=== PATIENT | female | born 1965 | race Caucasian/White ===

== ENCOUNTER → 2016-11-06 | Outpatient (CLI) | payer OTHER ==
[~2016-11-06] MED LIST: ASP325TEC PO; ASPI-586 PO; ATEN50TA PO; BPR150TCR PO; BSP10T PO; BUSPAR; CODE-54 PO; DAPA10TA PO; ESTR1TAB24 PO; FURO20TA4 PO; GLIP10TA13 PO; HYDR-3454 PO; INDO25CA PO; KCL10CCR PO; LASIX; LEVO125T6 PO; LIRA0.6P SQ; LISI10TA2 PO; LOVA40TA2 PO; LOVASTATIN; LVT.15T PO; MEDR2.5T PO; MELO-195 PO; METF1000 PO; MOBIC; PENI500T PO; POTASSIUM; PROP1TAB77 PO; SAXA5TAB PO; SPIR25TA3 PO; SPIRONOLACTONE; TRM50T PO
--- NOTE | 2016-11-09 21:29 | Diagnostic Imaging Report ---
INDICATION: Screening. The current study was also evaluated with a Computer Aided Detection (CAD) system. Comparison made with prior examination of 09/19/2015, 07/16/2014, and 01/04/2013. FINDINGS: There is a moderate amount of residual fibroglandular tissue bilaterally. There is no dominant mass, spiculated lesion, or suspicious calcification identified. The skin, nipples, and axillae are unremarkable. IMPRESSION: Negative. ACR BI-RADS Category 1: Negative. Result letter will be mailed to the patient. Note: At least 10% of breast cancer is not imaged by mammography. Dictated by: Dictated on workstation # [id number]
== END ==
LOC: RAD 13:27
PROVIDERS: ATTEND Obstetrics & Gynecology
DX: Z12.31 Encounter for screening mammogram for malignant neoplasm of breast (principal)
CPT/HCPCS: 77067

== ENCOUNTER → 2017-02-05 | Outpatient (CLI) | payer OTHER ==
--- NOTE | 2017-02-05 14:50 | Diagnostic Imaging Report ---
FOOT, RIGHT, 3 VIEW COMPARISON: None available. INDICATION: Pain on the ball of foot. TECHNIQUE: Three non-weightbearing views of the right foot. FINDINGS: No evidence of calcaneal or metatarsal stress fracture. No acute or healing fracture. Moderate degenerative changes at the hallux sesamoid metatarsal head articulation. Small dorsal and moderate-sized plantar calcaneal spurs. Early osteoarthritis of the first MTP joint. No structural changes to indicate gout or inflammatory arthritis. IMPRESSION: 1. 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 2. No evidence of metatarsal or calcaneal stress fracture. 3. Small dorsal and moderate-sized plantar calcaneal spurs. Dictated by: Dictated on workstation # [id number]
== END ==
LOC: RAD 13:49
PROVIDERS: ATTEND Nurse Practitioner
DX: M19.071 Primary osteoarthritis, right ankle and foot (principal); M77.31 Calcaneal spur, right foot
CPT/HCPCS: 73630

== ENCOUNTER → 2017-07-14 | Outpatient (CLI) | payer OTHER ==
--- NOTE | 2017-07-14 11:23 | Diagnostic Imaging Report ---
PROCEDURE: MRI lumbar spine. TECHNIQUE: Multiplanar, multisequence MRI of the lumbar spine was performed without contrast. INDICATION: Lower back pain. Bilateral leg numbness. FINDINGS: There is satisfactory alignment of the posterior spinal line. The vertebral body heights are preserved. Disc heights are also preserved. There is no significant bone marrow signal abnormality. Mild disc desiccation at the mid lumbar spine levels is seen. The cauda equina and conus medullaris appear grossly unremarkable. T12/L1: No disc herniation, no spinal canal or foraminal stenosis. L1/2: No disc herniation. There is moderate facet hypertrophy. No central canal or lateral recess stenosis. No foraminal narrowing. L2/3: No disc herniation. There is moderate facet hypertrophy. No central canal or lateral recess stenosis. L3/4: No disc herniation. There is moderate facet arthropathy. No central canal, lateral recess or foraminal stenosis. L4/5: There is some no disc herniation. There is bilateral moderate to severe facet arthropathy. No central canal stenosis. There is bilateral mild to moderate lateral recess stenosis. These are abutting the descending L5 nerve roots. The foramina demonstrate mild narrowing on the left and mild to moderate narrowing of the right side. L5/S1: No disc herniation. There is mild facet hypertrophy bilaterally. No central canal, lateral recess or foramina stenosis. IMPRESSION: Severe facet arthropathy at L4/5 seen bilaterally. This results in mild to moderate lateral recess stenosis bilaterally. There is also mild to moderate foraminal stenosis bilaterally at this level. Dictated by: Dictated on workstation # [id number]
== END ==
LOC: RAD 10:13
PROVIDERS: ATTEND Orthopaedic Surgery
DX: M47.816 Spondylosis without myelopathy or radiculopathy, lumbar region (principal); M48.061 Spinal stenosis, lumbar region without neurogenic claudication
CPT/HCPCS: 72148

== ENCOUNTER → 2017-10-27 | Outpatient (CLI) | payer OTHER ==
--- NOTE | 2017-10-27 16:32 | Diagnostic Imaging Report ---
PROCEDURE: US left lower extremity venous. TECHNIQUE: Multiple real-time grayscale images were obtained over the left lower extremity in various projections. Additional duplex Doppler and color Doppler images were also obtained. INDICATION: Pain, swelling. FINDINGS: The femoropopliteal deep venous system is widely patent. No deep or superficial thrombi. No fluid collection. IMPRESSION: Normal negative unilateral left lower extremity venous Doppler and ultrasound exam. Dictated by: Dictated on workstation # [id number]
== END ==
LOC: RAD 16:01
PROVIDERS: ATTEND Nurse Practitioner Family
DX: R22.42 Localized swelling, mass and lump, left lower limb (principal); M79.605 Pain in left leg

== ENCOUNTER → 2017-11-01 | Outpatient (CLI) | payer OTHER ==
--- NOTE | 2017-11-01 13:05 | Diagnostic Imaging Report ---
INDICATION: Claudication, history of diabetes. FINDINGS: Noninvasive study performed with ankle-brachial indices on both sides demonstrating ankle-brachial index of 1.23 on the right side and 1.19 on the left side. Ankle brachial indices in dorsalis pedis was 0.99 on the right side and 1.12 on the left side. IMPRESSION: Normal ankle brachial indices bilaterally. Dictated by: Dictated on workstation # [id number]
== END ==
LOC: RAD 08:38
PROVIDERS: ATTEND Family Medicine
DX: M79.89 Other specified soft tissue disorders (principal)
CPT/HCPCS: 93922

== ENCOUNTER 2017-11-22 10:26 | Emergency (ER) | payer OTHER ==
[~2017-11-22] VITALS: Ht 162.6 cm; Wt 103.0 kg
--- NOTE | 2017-11-22 10:50 | ED Lower Extremity ---
General Chief Complaint: Lower Extremity Stated Complaint: LEFT LEG SWOLLEN Source: patient Exam Limitations: no limitations History of Present Illness Date Seen by Provider: Nov 22, 2017 Time Seen by Provider: 10:46 Initial Comments To ER with reports of left leg swelling intermittently for 1 month. She's been evaluated by primary care and found to have normal venous ultrasound of the lower extremity, also has pain in this extremity. She then had an MRI of lumbar spine was diagnosed with sciatica. However over the past 3-4 days the swelling has increased in the left calf and left thigh and is now painful. Onset: other Severity: moderate Pain/Injury Location: left leg Modifying Factors: Worse With Movement Allergies and Home Medications Allergies Coded Allergies: cephalexin (Unverified Allergy, Mild, FACE GETS RED, FEELS REALLY HOT, ) Home Medications Aspirin 81 Mg Tablet.dr, 81 MG PO DAILY, (Reported) Bupropion Hcl 150 Mg Tablet, 150 MG PO BID, (Reported) Buspirone Hcl 10 Mg Tablet, 30 MG PO BID, (Reported) Dapagliflozin Propanediol 10 Mg Tablet, 10 MG PO DAILY, (Reported) Estradiol 1 Mg Tablet, 1 MG PO DAILY, (Reported) Hydrocodone/Acetaminophen 1 Each Tablet, 1-2 EACH PO Q4H PRN for ABDOMINAL PAIN Prescribed by: EVELYN BORRERO on 09/16/15 1400 Hydrocodone/Acetaminophen 1 Each Tablet, 1 EACH PO Q4H PRN for PAIN-SEVERE Prescribed by: ROLANDO ATWOOD on 11/22/171315 Indomethacin 25 Mg Capsule, 25 MG PO BID, (Reported) Levothyroxine Sodium 150 Mcg Tablet, 150 MCG PO DAILY, (Reported) Liraglutide 0.6 Mg/0.1 Ml Pen.injctr, 0.3 MG SQ DAILY, (Reported) Lisinopril 10 Mg Tablet, 10 MG PO DAILY, (Reported) Lovastatin 40 Mg Tablet, 40 MG PO DAILY, (Reported) Medroxyprogesterone Acetate 2.5 Mg Tablet, 2.5 MG PO DAILY, (Reported) Metformin HCl 1,000 Mg Tablet, 1,000 MG PO BID, (Reported) Potassium Chloride 10 Meq Capcr, 10 MEQ PO DAILY, (Reported) Rivaroxaban 15 Mg Tablet, 15 MG PO BID Prescribed by: ROLANDO ATWOOD on 11/22/171315 Tramadol Hcl 50 Mg Tab, 100 MG PO BID PRN, (Reported) Patient Home Medication List Home Medication List Reviewed: Yes Constitutional: see HPI, No chills, No fever EENTM: see HPI Respiratory: no symptoms reported Cardiovascular: no symptoms reported Gastrointestinal: No abdominal pain Genitourinary: no symptoms reported Musculoskeletal: see HPI Skin: no symptoms reported Psychiatric/Neurological: No Symptoms Reported Past Fjkgpbd-Emcotp-Akpgpa Hx Patient Social History Recent Foreign Travel: No Contact w/Someone Who Travel: No Immunizations Up To Date Date of Pneumonia Vaccine: May 07, 2015 Date of Influenza Vaccine: Jul 24, 2015 Reproductive System Hx Reproductive Disorders: No Sexually Transmitted Disease: No HIV/AIDS: No Female Reproductive Disorders: Denies Musculoskeletal Musculoskeletal Disorders: Arthritis, Chronic Back Pain HEENT Loss of Vision: Denies Hearing Impairment: Denies Psychosocial Behavioral Health Disorders: Anxiety, Depression Blood Transfusions Adverse Reaction to a Blood Tr: No Physical Exam Vital Signs Vital Signs - First Documented 11/22/17 10:30 Temp 97.2 Pulse 75 Resp 16 B/P (MAP) 145/84 (104) Pulse Ox 97 O2 Delivery Room Air Capillary Refill : General Appearance: WD/WN, no apparent distress HEENT: PERRL/EOMI, normal ENT inspection Neck: non-tender, full range of motion Respiratory: no respiratory distress, no accessory muscle use Gastrointestinal: normal bowel sounds, non tender Hips: bilateral hip non-tender, bilateral hip normal inspection, bilateral hip normal range of motion Legs: bilateral leg normal range of motion, left leg swelling (2+ pitting edema up to the knee) Knees: bilateral knee non-tender, bilateral knee normal inspection, bilateral knee normal range of motion Ankles: bilateral ankle non-tender, bilateral ankle normal range of motion, left ankle swelling Feet: bilateral foot non-tender, bilateral foot normal range of motion, left foot swelling Neurologic/Psychiatric: alert, normal mood/affect, oriented x 3 Skin: normal color, warm/dry Progress/Results/Core Measures Results/Orders Lab Results Laboratory Tests Test 11/22/17 10:55 Range/Units White Blood Count 7.6 4.3-11.0 10^3/uL Red Blood Count 4.47 4.35-5.85 10^6/uL Hemoglobin 13.7 11.5-16.0 G/DL Hematocrit 40 35-52 % Mean Corpuscular Volume 88 80-99 FL Mean Corpuscular Hemoglobin 31 25-34 PG Mean Corpuscular Hemoglobin Concent 35 32-36 G/DL Red Cell Distribution Width 13.1 10.0-14.5 % Platelet Count 221 130-400 10^3/uL Mean Platelet Volume 9.9 7.4-10.4 FL Neutrophils (%) (Auto) 55 42-75 % Lymphocytes (%) (Auto) 31 12-44 % Monocytes (%) (Auto) 11 0-12 % Eosinophils (%) (Auto) 3 0-10 % Basophils (%) (Auto) 0 0-10 % Neutrophils # (Auto) 4.2 1.8-7.8 X 10^3 Lymphocytes # (Auto) 2.4 1.0-4.0 X 10^3 Monocytes # (Auto) 0.8 0.0-1.0 X 10^3 Eosinophils # (Auto) 0.2 0.0-0.3 10^3/uL Basophils # (Auto) 0.0 0.0-0.1 10^3/uL D-Dimer 0.38 0.00-0.49 UG/ML Sodium Level 139 135-145 MMOL/L Potassium Level 3.5 L 3.6-5.0 MMOL/L Chloride Level 106 98-107 MMOL/L Carbon Dioxide Level 27 21-32 MMOL/L Anion Gap 6 5-14 MMOL/L Blood Urea Nitrogen 17 7-18 MG/DL Creatinine 0.77 0.60-1.30 MG/DL Estimat Glomerular Filtration Rate > 60 BUN/Creatinine Ratio 22 Glucose Level 174 H 70-105 MG/DL Calcium Level 9.0 8.5-10.1 MG/DL My Orders Orders - ROLANDO ATWOOD APRN Cbc With Automated Diff (11/22/17 10:40) Basic Metabolic Panel (11/22/17 10:45) Saline Lock/Iv-Start (11/22/17 10:45) Ct Abdomen/Pelvis W (11/22/17 10:45) Fibrin Degradation Products (11/22/17 10:46) Us Venous Lower Ext Lt (11/22/17 10:51) Iohexol Injection (Omnipaque 350 Mg/Ml 1 (11/22/17 11:30) Ns (Ivpb) (Sodium Chloride 0.9% Ivpb Bag (11/22/17 11:30) Hydrocodone/Apap 5/325 Tablet (Lortab 5 (11/22/17 13:00) Medications Given in ED Current Medications Medications Dose Ordered Sig/Jerry Route Start Time Stop Time Status Last Admin Dose Admin Acetaminophen/ Hydrocodone Bitart 1 tab ONCE ONCE PO 11/22/17 13:00 11/22/17 13:01 DC 11/22/17 13:08 1 TAB Vital Signs/I&O Vital Sign - Last 12Hours 11/22/17 10:30 Temp 97.2 Pulse 75 Resp 16 B/P (MAP) 145/84 (104) Pulse Ox 97 O2 Delivery Room Air Diagnostic Imaging Diagonstic Imaging: CT, Ultrasound Comments NAME: ELICEO LAZCANO [facility] REC#: [id number] PT STATUS: REG ER : 1965 PHYSICIAN: ROLANDO ATWOOD APRN ADMIT DATE: 11/22/17/ER Draft Date of Exam:11/22/17 US VENOUS LOWER EXT LT PROCEDURE: US left lower extremity venous. TECHNIQUE: Multiple real-time grayscale images were obtained over the left lower extremity in various projections. Additional duplex Doppler and color Doppler images were also obtained. INDICATION: Left leg swelling. FINDINGS: The left common femoral, superficial femoral and popliteal veins are patent. No thrombus is seen. The iliac veins were not well visualized. No fluid collection is seen. IMPRESSION: No evidence of left lower extremity femoropopliteal DVT. Dictated on workstation # [id number] Dict: 11/22/17 1207 Trans: 11/22/17 1209 POLA [id number] Interpreted by: BRITTON BETANCOURT MD Electronically signed by: NAME: ELICEO LAZCANO [facility] REC#: [id number] PT STATUS: REG ER : 1965 PHYSICIAN: ROLANDO ATWOOD APRN ADMIT DATE: 11/22/17/ER Draft Date of Exam:11/22/17 CT ABDOMEN/PELVIS W PROCEDURE: CT abdomen and pelvis with contrast. TECHNIQUE: Multiple contiguous axial images were obtained through the abdomen and pelvis after administration of intravenous contrast. INDICATION: Left leg swelling. COMPARISON: Comparison is made with prior CT from 12/14/2007. FINDINGS: There is a 5 mm nodule in the subpleural aspect of the posterolateral right lower lobe. A second nodule is identified in the left lower lobe measuring 4 mm in size. Otherwise, the lung bases are clear. The liver demonstrates generalized low density consistent with hepatic steatosis. No discrete liver mass is identified. The gallbladder is unremarkable. The pancreas and spleen are unremarkable. No adrenal mass is identified. The kidneys are unremarkable. The aorta is non-aneurysmal. 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 The left-sided iliac vein and left-sided IVC appear to contain thrombus. The left IVC does empty into the left renal vein. The right-sided IVC appears to be patent. The small and large bowel loops are normal in caliber. There is no ascites. There is a large mass in the left hemipelvis, which appears to be involving the left iliacus muscle. This measures approximately 11.3 cm x 5.9 cm x 10.2 cm. This does displace the left psoas muscle medially. There are internal regions of hyperdensity noted which may represent enhancement versus calcification. There appears to be some sclerosis involving the left iliac bone as well as some periosteal reaction. No gross destructive changes are seen. No definite pelvic lymphadenopathy is seen. There is some edema in the subcutaneous tissues of the left lower extremity. The bladder and uterus are unremarkable. IMPRESSION: 1. Large left pelvic mass which appears to be arising from the left iliacus muscle. Features are concerning for sarcoma or neoplasm. There appears to be involvement of the left iliac bone as well. No definite pelvic or abdominal lymphadenopathy is seen. MRI would be useful for further characterization. 2. 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 3. Hepatic steatosis. 4. Tiny bibasilar pulmonary nodules, indeterminate. Dictated on workstation # [id number] Dict: 11/22/17 1154 Trans: 11/22/17 1212 [id number] Interpreted by: BRITTON BETANCOURT MD Electronically signed by: Departure Communication (Admissions) Communication I spoke with Dr. Lanza from general surgery. He recommends a CT-guided needle biopsy. I then spoke with Dr. Betancourt from radiology. This would be amenable to Ct guided needle biopsy however he would suggest referral to musculoskeletal oncology prior to the biopsy. I then attempted to contact musculoskeletal oncology Dr Luther or Dr Villaotro at [facility] ( scheduling number [phone]) and left a voicemail with their medical office scheduler with patient name and date of . I also notified Dr Cuellar of the plan and need for follow up. Shell see the patient in the clinic this week for follow up. Ill give the patient rx for hydrocodone for left leg pain and low back pain, xarelto for this. 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 Decision time for Depature: 13:12 Referrals: HANNAH CUELLAR DO (PCP/Family) Primary Care Physician Patient Instructions: NO INSTRUCTIONS GIVEN Add. Discharge Instructions: 1. Call Dr. Cuellar to make an appointment to be seen later this week for recheck 2. Blood thinners and a medication as directed 3. Return to ER for any worsening such as shortness of breath, chest pain, other concerns. I have left your name with the [facility] orthopedics clinic for you will need to see musculoskeletal oncology which would be either Dr. Luther or Dr. Villatoro. If you do not hear back from them today, call their office tomorrow morning at [phone] For an appointment as soon as possible. 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 All discharge instructions reviewed with patient and/or family. Voiced understanding. Scripts Rivaroxaban (Xarelto) 15 Mg Tablet 15 MG PO BID, #42 TAB Prov: ROLANDO ATWOOD APRN 11/22/17 Hydrocodone/Acetaminophen ([place] 5-325 Tablet) 1 Each Tablet 1 EACH PO Q4H Y for PAIN-SEVERE, #30 TAB Prov: ROLANDO ATWOOD APRN 11/22/17 Work/School Note: Work Release Form Date Seen in the Emergency Department: Nov 22, 2017 Return to Work: Nov 27, 2017 Copy Copies To 1: HANNAH CUELLAR PETER J APRN Nov 22, 2017 10:50
--- OUTSIDE RECORDS SUMMARY | 2017-11-22 10:52 | XMS REPORT ---
Author Author JONY GARCIA [facility] eClinicalWorks Address Unknown Phone Unavailable Care Team Providers Care Client Experience Manager Name Role Phone JONY GARCIA CP Unavailable Allergies No Known Allergies Problems Problem Type Condition Code Onset Dates Condition Status Problem Other and unspecified noninfectious gastroenteritis and colitis 558.9 Active Problem Acute sinusitis, unspecified 461.9 Active Problem Cough 786.2 Active Problem Lumbago 724.2 Active Problem Nausea with vomiting 787.01 Active Problem Need for prophylactic vaccination and inoculation, Influenza V04.81 Active Problem Dysfunction of Eustachian tube 381.81 Active Problem Pain in soft tissues of limb 729.5 Active Problem Allergic rhinitis due to pollen 477.0 Active Problem Unspecified disorder of skin and subcutaneous tissue 709.9 Active Problem Varicose veins of lower extremities with inflammation 454.1 Active Problem Pain in joint, lower leg 719.46 Active Problem Pain in joint, pelvic region and thigh 719.45 Active Problem Contusion of unspecified site 924.9 Active Problem Allergic rhinitis, cause unspecified 477.9 Active Medications Medication Code System Code Instructions Start Date End Date Status Dosage Tramadol HCl [facility] [id number] 50MG TAKE TWO TABLETS BY MOUTH EVERY 12 HOURS NEEDED Results No Known Results Summary Purpose eClinicalWorks Submission
--- OUTSIDE RECORDS SUMMARY | 2017-11-22 10:53 | XMS REPORT ---
Author Author JONY GARCIA Organization eClinicalWorks Address Unknown Phone Unavailable Care Team Providers Care Residential Supervisor Name Role Phone JONY GARCIA CP Unavailable Allergies No Known Allergies Problems Problem Type Condition ICD-9 Code Onset Dates Condition Status Problem Other [...] Date End Date Status Dosage Tramadol HCl [facility] [id number] 50MG TAKE TWO TABLETS BY MOUTH EVERY 12 HOURS NEEDED Results No Known Results Summary Purpose eClinicalWorks Submission
--- OUTSIDE RECORDS SUMMARY | 2017-11-22 10:53 | XMS REPORT ---
Author Author JONY GARCIA [facility] eClinicalWorks Address Unknown Phone Unavailable Care Team Providers Care Media Consultant Outside Sales Name Role Phone JONY GARCIA CP Unavailable [...] Instructions Start Date End Date Status Dosage Victoza [facility] [id number] 18MG/3ML Subcutaneous Once a day 1.8 mg Results No Known Results Summary Purpose eClinicalWorks Submission
--- OUTSIDE RECORDS SUMMARY | 2017-11-22 10:53 | XMS REPORT ---
Author Author JONY GARCIA Organization eClinicalWorks Address Unknown Phone Unavailable Care Team Providers Care Business Project Manager Name Role Phone JONY GARCIA CP [...] Start Date End Date Status Dosage Victoza [facility] [address]-77 18 MG/3ML Subcutaneous Once a day 1.8 mg Results No Known Results Summary Purpose eClinicalWorks Submission
--- OUTSIDE RECORDS SUMMARY | 2017-11-22 10:53 | XMS REPORT ---
Author Author JONY GARCIA [facility] eClinicalWorks Address Unknown Phone Unavailable Care Team Providers Care Corporate Counsel Name Role Phone JONY GARCIA CP Unavailable [...] Instructions Start Date End Date Status Dosage Diflucan [facility] [address]-61 150 MG Orally Once a day May 31, 2015May 1 tablet Results No Known Results Summary Purpose eClinicalWorks Submission
--- OUTSIDE RECORDS SUMMARY | 2017-11-22 10:53 | XMS REPORT ---
Author Author JONY GARCIA [facility] eClinicalWorks Address Unknown Phone Unavailable Care Team Providers Care Executive Relations Specialist Name Role Phone JONY GARCIA CP Unavailable [...] Date End Date Status Dosage Tramadol HCl [facility] [id number] 50MG TAKE TWO TABLETS BY MOUTH EVERY 12 HOURS NEEDED Results No Known Results Summary Purpose eClinicalWorks Submission
--- OUTSIDE RECORDS SUMMARY | 2017-11-22 10:53 | XMS REPORT ---
Author Author CASSIE YORK [facility] Address [address] [place] [address] Care Team Providers Care Personal Banking Officer Name Role Phone CASSIE YORK Unavailable PROBLEMS Type Condition ICD9-CM Code [id number] Code Onset Dates Condition Status SNOMED Code Problem Pain in joint, pelvic region and thigh 719.45 Active 659366727 Problem Lumbago 724.2 Active 312890647 Problem Unspecified disorder of skin and subcutaneous tissue 709.9 Active 43464757 Problem Allergic rhinitis due to pollen 477.0 Active 63778919 Problem Allergic rhinitis, cause unspecified 477.9 Active 18944243 Problem Acute sinusitis, unspecified 461.9 Active 66858933 Problem Other and unspecified noninfectious gastroenteritis and colitis 558.9 Active 21018913 Problem Dysfunction of Eustachian tube 381.81 Active 45161199 Problem Varicose veins of lower extremities with inflammation 454.1 Active 53328685 Problem Nausea with vomiting 787.01 Active 58294867 Problem Cough 786.2 Active 24317437 Problem Need for prophylactic vaccination and inoculation, Influenza V04.81 Active 517453570 Problem Pain in soft tissues of limb 729.5 Active 49512078 Problem Contusion of unspecified site 924.9 Active 272717769 Problem Pain in joint, lower leg 719.46 Active 160271527 ALLERGIES Substance Reaction Event Type Date Status Cephalexin Unknown Drug Allergy Sep, Active SOCIAL HISTORY No smoking Hx information available PLAN OF CARE VITAL SIGNS Height 65 in 2016-10-07 Weight 234.8 lbs 2016-10-07 Temperature 97.9 degrees Fahrenheit 2016-10-07 Heart Rate 88 bpm 2016-10-07 Respiratory Rate 20 2016-10-07 BMI 39.07 kg/m2 2016-10-07 Blood pressure systolic 124 mmHg 2016-10-07 Blood pressure diastolic 72 mmHg 2016-10-07 MEDICATIONS Medication Instructions Dosage Frequency Start Date End Date Duration Status Potassium Chloride ER 10MEQ TAKE ONE TABLET BY MOUTH ONCE DAILY 90 Active Levothyroxine Sodium 150MCG TAKE ONE TABLET BY MOUTH ONCE DAILY 90 Active Tramadol HCl 50MG TAKE TWO TABLETS BY MOUTH EVERY 12 HOURS NEEDED 28 Active Farxiga 5MG TAKE ONE TABLET BY MOUTH ONCE DAILY 30 Active Zithromax Z-Sha 250 MG Orally Once a day 2 tablets on the first day, then 1 tablet daily for 4 days 24h Sep, Sep, 5 day(s) Active MedroxyPROGESTERone Acetate 2.5 MG Orally Once a day 1 tablet 24h Active Meloxicam 15MG TAKE ONE TABLET BY MOUTH ONCE DAILY 90 Active Lovastatin 20 mg take 1 tablet (20 mg) by oral route once daily with the evening meal Sep, Active Lisinopril 10MG TAKE ONE TABLET BY MOUTH ONCE DAILY 90 Active Test strips Test Strips one touch ultra test strips, dx code 250.00 12h 05 Jan, 2015 Active BusPIRone HCl 30MG TAKE ONE TABLET BY MOUTH TWICE DAILY 30 Active Ibuprofen 600 MG Orally Three times a day 1 tablet 8h 14 Apr, 2015 Active Estradiol 2 MG Orally Once a day 1 tablet 24h Active Metformin HCl 1000MG TAKE ONE TABLET BY MOUTH TWICE DAILY WITH MEALS 90 Active RESULTS No Results PROCEDURES Procedure Date Ordered Related Diagnosis Body Site Office Visit, Est Pt., Level 3 Oct 07, 2016 IMMUNIZATIONS No Known Immunizations
--- OUTSIDE RECORDS SUMMARY | 2017-11-22 10:53 | XMS REPORT ---
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 Name Role Phone JONY GARCIA CP Unavailable Allergies, Adverse Reactions, Alerts Substance Reaction Event Type Cephalexin Info Not Available Drug Allergy Problems Problem Type Condition Code Onset Dates [...] Pain in joint, lower leg 719.46 Active Assessment Left knee pain M25.562 Active Problem Pain in joint, pelvic region and thigh 719.45 Active Problem Contusion of unspecified site 924.9 Active Problem Allergic rhinitis, cause unspecified 477.9 Active Medications Medication Code System Code Instructions Start Date End Date Status Dosage Indocin [facility] [address]-44 25 mg Orally Three times a day pc Jul 22, 2015 1 Metformin HCl [facility] 78523509786 1000MG TAKE ONE TABLET BY MOUTH TWICE DAILY WITH MEALS Potassium Chloride ER [facility] 38930419961 10MEQ TAKE ONE TABLET BY MOUTH ONCE DAILY Tramadol HCl ND 28899971871 50MG TAKE TWO TABLETS BY MOUTH EVERY 12 HOURS NEEDED Lisinopril [facility] 20210369932 10MG TAKE ONE TABLET BY MOUTH ONCE DAILY BusPIRone HCl [facility] 68906784510 30MG TAKE ONE TABLET BY MOUTH TWICE DAILY BuPROPion HCl [facility] 41938655674 150MG take 1 tablet (150 mg) by oral route 2 times per day Test strips ND 0 Test Strips 2 times a day January 22, 2015 one touch ultra test strips, dx code 250.00 MedroxyPROGESTERone Acetate [facility] [address]-11 2.5 MG Orally Once a day 1 tablet Farxiga [facility] 53152695121 5MG TAKE ONE TABLET BY MOUTH ONCE DAILY Victoza [facility] 25615580572 18MG/3ML Subcutaneous Once a day 1.8 mg Estradiol [facility] [address]-58 2 MG Orally Once a day 1 tablet Ibuprofen [facility] [address]-80 600 MG Orally Three times a day May 03, 2015 1 tablet Levothyroxine Sodium [facility] 48331638734 150MCG TAKE ONE TABLET BY MOUTH ONCE DAILY Lovastatin [facility] [address]-17 20 mg Oct 11, 2013 take 1 tablet (20 mg) by oral route once daily with the evening meal Procedures Procedure Coding System Code Date Office Visit, Est Pt., Level 2 CPT-4 70257 Jul 22, 2015 X-RAY EXAM OF KNEE, 1 OR 2 CPT-4 69397 Jul 22, 2015 Vital Signs Date/Time: Jul 22, 2015 Temperature 97.1 F Weight 240.7 lbs Height 65 in BMI 40.05 Index Blood Pressure Diastolic 88 mmHg Blood Pressure Systolic 142 mmHg Cardiac Monitoring Heart Rate 104 bpm Results No Known Results Summary Purpose [employer] Submission
--- OUTSIDE RECORDS SUMMARY | 2017-11-22 10:53 | XMS REPORT ---
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
--- OUTSIDE RECORDS SUMMARY | 2017-11-22 10:54 | XMS REPORT | Continuity of Care Document ---
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 05/02/2013 15:42:00 Document Registration [id number] 01/23/2013 15:58:00 Document Registration [id number] 11/01/2017 08:38:00 11/01/2017 23:59:59 CLS Outpatient HANNAH STYLES DO Via [facility] [address] RAD M79.89,M79.605 [id number] 10/27/2017 16:01:00 10/27/2017 23:59:59 CLS Outpatient TIMO RHOADES EXPEDITER SERVICE ORDER [facility] [address] RAD SWELLIING AND PAIN [id number] 2017 10:13:00 2017 23:59:59 CLS Outpatient JC ARCHULETA DO [facility] [address] RAD LOWER BACK PAIN [id number] 02/05/2017 13:49:00 02/05/2017 23:59:59 CLS Outpatient ZAINA CHANTECOLEMAN Sev[place] APRN [facility] [address] RAD R FOOT PAIN [id number] 11/06/2016 13:27:00 11/06/2016 23:59:59 CLS Outpatient JANEE MAY MD [facility] [address] RAD SCREENING [id number] 09/19/2015 09:31:00 09/19/2015 23:59:59 CLS Outpatient JANEE MAY MD [facility] [address] RAD ROUTINE MAMMOGRAM SCREENING [id number] 09/16/2015 08:51:00 09/16/2015 23:59:59 CLS Outpatient JOE VASQUEZ [facility] [address] RAD [id number] 09/16/2015 09:45:00 09/16/2015 19:11:00 DIS Outpatient EVELYN BORRERO MD [facility] VENTERAL HERNIA [id number] 09/06/2015 12:34:00 09/06/2015 23:59:59 CLS Outpatient EVELYN BORRERO MD [facility] [address] PREOP [id number] 09/06/2015 12:29:00 09/06/2015 15:10:00 DIS Outpatient EVELYN BORRERO MD [facility] [id number] 09/05/2015 05:35:00 09/05/2015 23:59:59 CLS Outpatient EVELYN BORRERO MD [facility] [address] PREOP SCREENING [id number] 09/03/2015 13:22:00 09/03/2015 23:59:59 CLS Outpatient EVELYN BORRERO MD [facility] [address] PREOP SCREENING [id number] 07/16/2014 11:37:00 07/16/2014 23:59:59 CLS Outpatient JANEE MAY MD [facility] [address] RAD SCREENING [id number] 08/11/2013 14:04:00 08/11/2013 23:59:59 CLS Outpatient BREANNA FIGUEROA [facility] [address] RAD PAIN IN JOINT, INV LOWER LEG [id number] 03/09/2016 14:02:00 Document Registration [id number] 01/04/2013 11:42:00 Document Registration [id number] 07/16/2012 19:45:00 Document Registration [id number] 02/18/2011 13:35:00 Document Registration
[2017-11-22 11:04] LABS: BASOPHILS % (AUTO) 0 % (0-10); EOSINOPHILS # (AUTO) 0.2 10^3/uL (0.0-0.3); EOSINOPHILS % (AUTO) 3 % (0-10); HEMATOCRIT 40 % (35-52); HEMOGLOBIN 13.7 G/DL (11.5-16.0); LYMPHOCYTES # (AUTO) 2.4 X 10^3 (1.0-4.0); LYMPHOCYTES % (AUTO) 31 % (12-44); MEAN CORPUSCULAR HEMOGLOBIN 31 PG (25-34); MEAN CORPUSCULAR HGB CONC 35 G/DL (32-36); MEAN CORPUSCULAR VOLUME 88 FL (80-99); MEAN PLATELET VOLUME 9.9 FL (7.4-10.4); MONOCYTES # (AUTO) 0.8 X 10^3 (0.0-1.0); MONOCYTES % (AUTO) 11 % (0-12); NEUTROPHILS # (AUTO) 4.2 X 10^3 (1.8-7.8); NEUTROPHILS % (AUTO) 55 % (42-75); PLATELET COUNT 221 10^3/uL (130-400); RED BLOOD COUNT 4.47 10^6/uL (4.35-5.85); RED CELL DISTRIBUTION WIDTH 13.1 % (10.0-14.5); WHITE BLOOD COUNT 7.6 10^3/uL (4.3-11.0)
[2017-11-22 11:22] LABS: BUN/CREATININE RATIO 22; CARBON DIOXIDE 27 MMOL/L (21-32); CHLORIDE 106 MMOL/L (98-107); CREATININE SERUM 0.77 MG/DL (0.60-1.30); GFR ESTIMATED > 60; GLUCOSE 174 MG/DL (70-105); POTASSIUM 3.5 MMOL/L (3.6-5.0); SODIUM 139 MMOL/L (135-145)
[2017-11-22] MEDS ORDERED: IOHEXOL 350 MG/ML 100 ML (OMNIPAQUE 350) VIAL IV ONE (11:30)
[2017-11-22] MEDS ORDERED: NS 100 ML (IVPB) BAG IV ONE (11:30)
--- NOTE | 2017-11-22 12:10 | Diagnostic Imaging Report ---
PROCEDURE: US left lower extremity venous. TECHNIQUE: Multiple real-time grayscale images were obtained over the left lower extremity in various projections. Additional duplex Doppler and color Doppler images were also obtained. INDICATION: Left leg swelling. FINDINGS: The left common femoral, superficial femoral and popliteal veins are patent. No thrombus is seen. The iliac veins were not well visualized. No fluid collection is seen. IMPRESSION: No evidence of left lower extremity femoropopliteal DVT. Dictated by: Dictated on workstation # [id number]
--- NOTE | 2017-11-22 12:12 | Diagnostic Imaging Report ---
PROCEDURE: CT abdomen and pelvis with contrast. TECHNIQUE: Multiple contiguous axial images were obtained through the abdomen and pelvis after administration of intravenous contrast. INDICATION: Left leg swelling. COMPARISON: Comparison is made with prior CT from 12/14/2007. FINDINGS: There is a 5 mm nodule in the subpleural aspect of the posterolateral right lower lobe. A second nodule is identified in the left lower lobe measuring 4 mm in size. Otherwise, the lung bases are clear. The liver demonstrates generalized low density consistent with hepatic steatosis. No discrete liver mass is identified. The gallbladder is unremarkable. The pancreas and spleen are unremarkable. No adrenal mass is identified. The kidneys are unremarkable. The aorta is non-aneurysmal. 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 The left-sided iliac vein and left-sided IVC appear to contain thrombus. The left IVC does empty into the left renal vein. The right-sided IVC appears to be patent. The small and large bowel loops are normal in caliber. There is no ascites. There is a large mass in the left hemipelvis, which appears to be involving the left iliacus muscle. This measures approximately 11.3 cm x 5.9 cm x 10.2 cm. This does displace the left psoas muscle medially. There are internal regions of hyperdensity noted which may represent enhancement versus calcification. There appears to be some sclerosis involving the left iliac bone as well as some periosteal reaction. No gross destructive changes are seen. No definite pelvic lymphadenopathy is seen. There is some edema in the subcutaneous tissues of the left lower extremity. The bladder and uterus are unremarkable. IMPRESSION: 1. Large left pelvic mass which appears to be arising from the left iliacus muscle. Features are concerning for sarcoma or neoplasm. There appears to be involvement of the left iliac bone as well. No definite pelvic or abdominal lymphadenopathy is seen. MRI would be useful for further characterization. 2. 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 3. Hepatic steatosis. 4. Tiny bibasilar pulmonary nodules, indeterminate. Dictated by: Dictated on workstation # [id number]
[2017-11-22] MEDS ORDERED: HYDROcodone/APAP 5 MG/325 MG (LORTAB) TAB PO ONE (13:00)
[2017-11-22] MEDS ORDERED: RIVA15TA PO (13:16)
[2017-11-22] MEDS ORDERED: HYDR-757 PO (13:16)
[2017-11-22 13:26] VITALS: BP 164/108
== END 2017-11-22 13:26 | disposition home or self-care (01) ==
LOC: EDUNIT# 10:26 → ER 10:27
DX: I82.422 Acute embolism and thrombosis of left iliac vein (principal); M62.89 Other specified disorders of muscle; F41.9 Anxiety disorder, unspecified; F32.9 Major depressive disorder, single episode, unspecified; Z79.82 Long term (current) use of aspirin; Z79.84 Long term (current) use of oral hypoglycemic drugs; Z88.1 Allergy status to other antibiotic agents
CPT/HCPCS: 36415; 74177; 80048; 85025; 85379

== ENCOUNTER → 2017-11-26 | Outpatient (CLI) | payer OTHER ==
[~2017-11-26] MED LIST changes: +CATHETER FLUSH 10 ML SYR IV PRN; +HYDR-757 PO; +IOHEXOL 350 MG/ML 100 ML (OMNIPAQUE 350) VIAL IV ONE; +NS 250 ML (IVPB) BAG IV ONE; +RECEIVED CONTRAST (Hold Metformin) IV SCH; +RIVA15TA PO
--- NOTE | 2017-11-26 15:25 | Diagnostic Imaging Report ---
PROCEDURE: CT chest with contrast only. TECHNIQUE: Multiple contiguous axial images were obtained through the chest after administration of intravenous contrast. INDICATION: Pelvic mass. COMPARISON: No prior CT chest study is available for comparison. FINDINGS: No axillary lymphadenopathy is detected. There are small lymph nodes in the mediastinum. An AP window node measures approximately 10 mm short axis. There are also small lymph nodes in the syd bilaterally. Largest is on the right with a short axis measurement of 9 mm. No pericardial or pleural fluid is identified. Tiny nodules in the bilateral lower lobes and right middle lobe are similar to CT abdomen and pelvis study from 11/22/2017. These are indeterminate. The upper lobes appear clear. No additional pulmonary nodules are seen. IMPRESSION: Indeterminate bilateral lower lobe and right middle lobe subcentimeter nodules. In light of the patient's known pelvic mass, small metastatic nodules cannot be entirely excluded. There are also small lymph nodes in the mediastinum and syd, nonspecific. Continued followup would be recommended. Dictated by: Dictated on workstation # [id number]
== END ==
LOC: RAD 13:19
PROVIDERS: ATTEND Orthopaedic Surgery
DX: R91.8 Other nonspecific abnormal finding of lung field (principal)
CPT/HCPCS: 71260

== ENCOUNTER 2018-03-06 21:17 | Inpatient (IN) | payer OTHER ==
[~2018-03-06] VITALS: Ht 162.6 cm; Wt 103.4 kg
[~2018-03-06 21:17] MED LIST changes: -ACET325T49 PO; -BUPR100T15 PO; -BUSP30TA2 PO; -COLL2POW MC; -COLL30OI TP; -ERTA1VIA IJ; -FERR325T18 PO; -GABA-488 PO; -GABA600T2 PO; -INDO25CA PO; +INDO25CA15 PO; -LACT1CAP62 PO; -LEVO200T6 PO; -NORT75CA PO; -ONDA4TAB10 PO; -ONDA4TAB11 PO; -OXYC10TA7 PO; -OXYC10TA85 PO; -OXYC15TA79 PO; -PANT40TA3 PO; -RIVA20TA PO; -SENN-40 PO; -SENN1TAB93 PO; -SITA100T12 PO; -VANC1.5P16 IV
--- OUTSIDE RECORDS SUMMARY | 2018-03-06 21:39 | XMS REPORT | Encounter Summary ---
Author Author [facility] Organization [facility] Address Unknown Phone Unavailable Care Team Providers Care Refresh Technician Name Role Phone Della Cuellar MD PCP Reason for Visit * Reason Comments General Question Encounter Details Date Type Department Care Team Description 03/03/2018 Telephone Outpatient Burn and Wound Nani Dejesus, RN General Question Clinic [address] [facility] [address] [place] [address] Social History Tobacco Use Types Packs/Day Years Used Date Never Smoker Smokeless Tobacco: Never Used Alcohol Use Drinks/Week oz/Week Comments No Sex Assigned at Date Recorded Not on file as of this encounter Functional Status Functional Status Response Date of Assessment Does the patient have a hearing impairment: No 03/02/2018 Does the patient have a visual impairment: No 03/02/2018 Does the patient have impaired ambulation: No 03/02/2018 Does the patient have an activity of daily living Yes 03/02/2018 (ADL) impairment: Does the patient have an instrumental activity of Yes 03/02/2018 daily living (IADL) impairment: Cognitive Status Response Date of Assessment Does the patient have a cognitive impairment: No 03/02/2018 as of this encounter Miscellaneous Notes * Telephone Encounter - Nani Dejesus, SANJAY - 03/03/2018 3:10 PM CDT Keiko MOLINA calling to report pt O2 sat 80's-90's yesterday at rest/sleep and did increase to 95 with deep breathing, and that xarelto and aspirin are contraindicated and xarelto dose ordered was 20mg and 15mg was what patient has at home. discussed with Dr Calhoun and he wants pt to see pcp if needed for oxygenation issues, ok to take xarelto and aspirin as they work differently, he is also ok with 15mg dose instead of 20mg dose, this info discussed with Keiko and she reports that she is with patient at this time and her sats are much better today with no issues and verbalizes understanding of instructions, also gave her appt for Beata's follow up here with Dr Calhoun in 2 weeks, she will let patient know of this. in this encounter Plan of Treatment Date Type Specialty Care Team Description 03/01/2018 Procedure Pass Cardiothoracic Surgery as of this encounter Visit Diagnoses Not on filein this encounter
--- OUTSIDE RECORDS SUMMARY | 2018-03-06 21:39 | XMS REPORT | Encounter Summary ---
Author Author [facility] Organization [facility] Address Unknown Phone Unavailable Care Team Providers Care Cage Maker Name Role Phone Della Cuellar MD PCP Encounter Details Date Type Department Care Team Description 03/02/2018 Pharmacy Visit [facility] [address] [place] [address] Social History Tobacco Use Types Packs/Day Years [...] impairment: No 03/02/2018 as of this encounter Plan of Treatment Date Type Specialty Care Team Description 03/01/2018 Procedure Pass Cardiothoracic Surgery as of this encounter Visit Diagnoses Not on filein this encounter
--- OUTSIDE RECORDS SUMMARY | 2018-03-06 21:39 | XMS REPORT | Encounter Summary ---
Author Author [facility] Organization [facility] Address Unknown Phone Unavailable Care Team Providers Care Reinforcing Metal Worker Name Role Phone Della Cuellar MD PCP Encounter Details Date Type Department Care Team Description 03/01/2018 Procedure Pass [facility] [address] [place] [address] Social History Tobacco Use Types Packs/Day Years Used Date Never Smoker Smokeless Tobacco: Never Used Alcohol Use Drinks/Week oz/Week Comments No Sex Assigned at Date Recorded Not on file as of this encounter Functional Status Functional Status Response Date of Assessment Does the patient have a hearing impairment: No 02/16/2018 Does the patient have a visual impairment: No 12/03/2017 Does the patient have impaired ambulation: No 12/03/2017 Does the patient have an activity of daily living No 12/03/2017 (ADL) impairment: Does the patient have an instrumental activity of No 12/03/2017 daily living (IADL) impairment: Cognitive Status Response Date of Assessment Does the patient have a cognitive impairment: No 12/03/2017 as of this encounter Plan of Treatment Date Type Specialty Care Team Description 03/01/2018 Procedure Pass Cardiothoracic Surgery as of this encounter Visit Diagnoses Not on filein this encounter
--- OUTSIDE RECORDS SUMMARY | 2018-03-06 21:39 | XMS REPORT | Encounter Summary ---
Author Author [facility] Organization [facility] Address Unknown Phone Unavailable Care Team Providers Care Bulb Inspector Name Role Phone Della Cuellar MD PCP Encounter Details Date Type Department Care Team Description 03/03/2018 Pharmacy Visit [facility] [address] [place] [address] Social History Tobacco Use Types Packs/Day Years [...]
--- OUTSIDE RECORDS SUMMARY | 2018-03-06 21:39 | XMS REPORT | Encounter Summary ---
Author Author [facility] Organization [facility] Address Unknown Phone Unavailable Care Team Providers Care Police Detention Attendant Name Role Phone Della Cuellar MD PCP Encounter Details Date Type Department Care Team Description 03/02/2018 [facility]ation [facility] Hugh Rivera, RN [address] [place] [address] [address] [id number] [place] [address] Social History Tobacco Use Types Packs/Day Years [...] impairment: No 03/02/2018 as of this encounter Progress Notes * Hugh Rivera RN - 03/02/2018 11:59 PM CDT Pt was met at the bedside with her Cg. Together they were instructed on the steps of administering the patient's medications. The Cg was able to independently mix and prime a sample mini-bag plus and felt confident that he could follow the administration steps. We reviewed the contents of the supplies and he made personal labels on several items to help him know how and when they would be used related to the supplied handouts. The Pt/Cg has their supplies and medications and is now ready for discharge. in this encounter Plan of Treatment Date Type Specialty Care Team Description 03/01/2018 Procedure Pass Cardiothoracic Surgery as of this encounter Visit Diagnoses Not on filein this encounter
--- OUTSIDE RECORDS SUMMARY | 2018-03-06 21:39 | XMS REPORT | Encounter Summary ---
Author Author [facility] Organization [facility] Address Unknown Phone Unavailable Care Team Providers Care Security Systems Sales Representative Name Role Phone Della Cuellar MD PCP Encounter Details Date Type Department Care Team Description 03/02/2018 Pharmacy Visit [facility] [id number] [place] [id number] Social History Tobacco Use Types Packs/Day Years [...]
--- OUTSIDE RECORDS SUMMARY | 2018-03-06 21:39 | XMS REPORT | Encounter Summary ---
Author Author [facility] Organization [facility] Address Unknown Phone Unavailable Care Team Providers Care Oral Surgery Technician Name Role Phone Della Cuellar MD PCP Reason for Visit * Reason Comments Critical Result Encounter Details Date Type Department Care Team Description 03/06/2018 Telephone [facility] Bernarda Guerrier MD Critical Result Physicians - Internal [address] [facility] [place] [address] [address]TH FLOOR POD C [phone] [address] [facility] [place] [address] Social History Tobacco Use Types Packs/Day Years [...] encounter Miscellaneous Notes * Telephone Encounter - Bernarda Guerrier MD - 03/06/2018 8:36 PM CDT On vanc and erta. vanc trough 17. Hb 6.8- was 6.3 6/10 and received transfusion. No obvious bleeding source. Advised to go to local [facility]. in this encounter Plan of Treatment Date Type Specialty Care Team Description 03/01/2018 Procedure Pass Cardiothoracic Surgery as of this encounter Visit Diagnoses Not on filein this encounter
--- OUTSIDE RECORDS SUMMARY | 2018-03-06 21:39 | XMS REPORT | Clinical Summary ---
Author Author [facility] Organization [facility] Address Unknown Phone Unavailable Care Team Providers Care Deli Clerk Name Role Phone Della Cuellar MD PCP Source Comments Some departments are not documenting in the electronic medical record. If you do not see the information that you expected, contact Release of Information in the Health Information Management department at [phone] for further assistance in locating additional records.[facility] Allergies Active Allergy Reactions Severity Noted Date Comments Cephalexin SEE COMMENTS Low 11/29/2017 Face gets red, feels really hot, has tolerated penicillin Current Medications Prescription Sig. Disp. Refills Start End Date Status Date lovastatin(+) (MEVACOR) Take 40 mg by mouth at Active 40 mg tablet bedtime daily. aspirin EC 81 mg tablet Take 81 mg by mouth Active daily. Take with food. busPIRone (BUSPAR) 30 mg Take 30 mg by mouth twice Active tablet daily. senna/docusate Take 1 tablet by mouth 60 tablet 0 12/04/19 Active (SENOKOT-S) 8.6/50 mg twice daily. 18 tablet rivaroxaban (XARELTO) 20 Take 1 tablet by mouth 90 tablet 0 01/15/20 Active mg tablet daily with breakfast. 18 lactobacillus rhamnosus Take 1 capsule by mouth 90 capsule 3 01/15/20 Active GG (CULTURELLE) 15 as directed twice daily 18 billion cell cpSP capsule with meals. acetaminophen (TYLENOL) Take 2 tablets by mouth 0 03/02/20 Active 325 mg tablet every 6 hours as needed. 18 gabapentin (NEURONTIN) Take 2 capsules by mouth 240 capsule 1 Active 300 mg capsule every 6 hours. 18 metFORMIN (GLUCOPHAGE) Take 1 tablet by mouth 60 tablet 1 03/02/20 Active 1,000 mg tablet twice daily with meals. 18 sitaGLIPtin (JANUVIA) 100 Take 1 tablet by mouth 30 tablet 1 03/02/20 Active mg tab tablet daily. 18 nortriptyline (PAMELOR) Take 1 capsule by mouth 30 capsule 1 03/02/20 Active 75 mg capsule at bedtime daily. 18 collagenase (SANTYL) 250 Apply to left lower 90 g 1 03/02/20 Active unit/g topical ointment abdominal wound. Do not 18 apply over incision. See wound care instructions levothyroxine (SYNTHROID) Take 1 tablet by mouth 30 tablet 1 03/02/20 Active 200 mcg tablet daily before breakfast. [address] Take 1 tablet by mouth 30 tablet 1 03/02/20 Active (PROTONIX) 40 mg tablet daily. 18 buPROPion (WELLBUTRIN) Take 1 tablet by mouth 90 tablet 1 03/02/20 Active 100 mg tablet three times daily. 18 ferrous sulfate (FEOSOL, Take 1 tablet by mouth 90 tablet 3 03/02/20 Active FEROSUL) 325 mg (65 mg three times daily with 18 iron) tablet meals. Take on an empty stomach at least 1 hour before or 2 hours after food. sodium hypochlorite Apply topically to 946 mL 0 03/02/20 Active (DAKIN'S 1/2 STRENGTH) affected area as needed. 18 0.25 % topical solution oxyCODONE SR (OXYCONTIN) Take 1 tablet by mouth 30 tablet 0 03/02/20 Active 10 mg ER tablet twice daily Earliest Fill 18 Date: 03/02/18 ondansetron (ZOFRAN) 4 mg Take 1 tablet by mouth 30 tablet 0 03/02/20 Active tablet every 6 hours as needed. 18 oxyCODONE (ROXICODONE, Take 1 tablet by mouth 42 tablet 0 03/02/20 Active OXY-IR) 15 mg tablet every 4 hours as needed 18 Earliest Fill Date: 03/02/18 ertapenem (INVANZ) 1 g/10 Administer 10 mL through 1 each 03/03/20 Active mL IVP vein every 24 hours. 18 Continue daily until surgery vancomycin (VANCOCIN) Administer 1,500 mg 03/02/20 Active 1,500 mg in dextrose 5% through vein every 24 18 (D5W) 300 mL IVPB hours. Continue until surgery. lisinopril (PRINIVIL; Take 10 mg by mouth 03/02/20 Discontin ZESTRIL) 10 mg tablet daily. 18 ued potassium chloride SR Take 10 mEq by mouth 03/02/20 Discontin (K-DUR) 10 mEq tablet daily. Take with a meal 18 ued and a full glass of water. levothyroxine (SYNTHROID) Take 175 mcg by mouth 03/02/20 Discontin 175 mcg tablet daily. 18 ued buPROPion (WELLBUTRIN) Take 1 tablet by mouth 90 tablet 0 01/15/20 03/02/20 Discontin 100 mg tablet three times daily. 18 18 ued insulin pen needles Use 1 each as directed 300 each 3 01/15/2003/02 Discontin (disposable) (BD UF LYNETTE before meals and at 18 18 ued PEN NEEDLES) 32 gauge x bedtime. Use with insulin 32" pen needle injections. acetaminophen (TYLENOL) Take 2 tablets by mouth 200 tablet 0 01/15/20 03/02/20 Discontin 500 mg tablet every 8 hours. Max of 18 18 ued 4,000 mg of acetaminophen in 24 hours. HYDROmorphone injection Administer 0.5-1 mg 01/15/20 03/02/20 Discontin (DILAUDID) 2 mg/mL syrg through vein three times 18 18 ued weekly Earliest Fill Date: 01/14/18 Only as needed for wound vac changes. Attempt to wean. oxycodone(+) (ROXICODONE, Take 1-2 tablets by mouth 75 tablet 0 03/02/20 Discontin OXY-IR) 10 mg tablet every 4 hours as needed 18 18 ued Earliest Fill Date: 01/14/18 oxyCODONE SR (OXYCONTIN) Take 1 tablet by mouth 0 01/15/20 03/02/20 Discontin 20 mg tablet twice daily Earliest Fill 18 18 ued Date: 01/14/18 alum/mag hydroxide/simeth Take 30 mL by mouth every 01/15/20 03/02/20 Discontin (MYLANTA, MAALOX PLUS) 6 hours as needed. 18 18 ued 200/200/20 mg/5 mL susp oral suspension diazePAM (VALIUM) 5 mg Take 0.5-1 tablets by 01/15/20 03/02/20 Discontin tablet mouth every 8 hours as 18 18 ued needed. gabapentin (NEURONTIN) Take 3 capsules by mouth 270 capsule 3 03/02/20 Discontin 300 mg capsule three times daily. 18 18 ued simethicone (MYLICON) 80 Chew 1 tablet by mouth 30 tablet 0 01/15/20 03/02/20 Discontin mg chew tablet every 6 hours as needed 18 18 ued for Flatulence. vitamin A & D oint Apply topically to 01/15/20 03/02/20 Discontin affected area twice 18 18 ued daily. Apply thin layer of ointment to labial wound. insulin glargine (LANTUS Inject 22 Units under the 45 mL 3 01/15/20 03/02/20 Discontin SOLOSTAR, BASAGLAR) 100 skin at bedtime daily. 18 18 ued unit/mL (3 mL) injection PEN insulin NPH (HUMULIN N Inject 30 Units under the 45 mL 3 01/15/20 Discontin KWIKPEN) 100 unit/mL (3 skin daily. 18 18 ued mL) injection PEN lidocaine 2% (20 mg/mL) 50 mL by SEE ADMIN 5 mL 01/15/20 03/02/20 Discontin soln INSTRUCTIONS route three 18 18 ued times weekly. To be used for wound vac changes PRN. Use 50 ml to infiltrate wound vac sponge prior to wound vac changes for pain control. pantoprazole DR Take 1 tablet by mouth 90 tablet 3 01/15/20 Discontin (PROTONIX) 40 mg tablet daily. 18 18 ued collagenase (SANTYL) 250 Apply to left lower 0 01/15/20 03/02/20 Discontin unit/g topical ointment abdominal wound. Do not 18 18 ued apply over incision. nortriptyline (PAMELOR) Take 1 capsule by mouth 01/15/20 03/02/20 Discontin 25 mg capsule at bedtime daily. 18 18 ued pancrelipase 20,000 Take 1 capsule via 01/15/20 03/02/20 Discontin Units/ sodium bicarbonate feeding tube PRN (Slag Worker 18 18 ued 650 mg(#) (KU CLOG from Rx) (Occluded DESTROYER) 20,000 Unit/ Feeding Tube). 650 mg cap insulin aspart U-100 Inject 8 Units under the 45 mL 3 01/15/2003/02 Discontin (NOVOLOG FLEXPEN) 100 skin three times daily 18 18 ued unit/mL injection PEN after meals. micafungin (MYCAMINE) 100 Administer 100 mg through 01/15/20 03/02/20 Discontin mg/5 mL 100 mg in sodium vein every 24 hours for 2 18 18 ued chloride 0.9% (NS) 0.9 % days. 100 mL IVPB (MB+) ertapenem (INVANZ) 1 g/10 Administer 10 mL through 1 each 01/15/20 Discontin mL IVP vein every 24 hours for 9 18 18 ued days. 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 Burn Surgery / Burn Care Casey Schneider MD Encounter Aron Sandra MD 02/28/2018 Documentation [facility] 02/25/2018 [facility] Burn Surgery / Burn Care Casey Schneider MD Encounter Vasu Perea MD 02/25/2018 Procedure Pass Rehabilitation 02/24/2018 Hospital Burn Surgery / Burn Care Casey Schneider MD Encounter Cristino Perrin MD 02/23/2018 [facility] Burn Surgery / Burn Care Casey Schneider MD Encounter Ike Gregg, DO 02/22/2018 [facility] Burn Surgery / Burn Care Casey Schneider MD Encounter Aron Sandra MD 02/21/2018 [facility] Burn Surgery / Burn Care Casey Schneider MD Encounter Cristino Perrin MD 02/18/2018 Hospital Burn Surgery / Burn Care SchneiderCasey MD Encounter Aron Sandra MD 02/17/2018 [facility] Burn Surgery / Burn Care SchneiderCasey MD Encounter Naga Irby MD 02/16/2018 [facility] Burn Surgery / Burn Care Casey cShneider MD Encounter Ike Gregg, DO 02/15/2018 Hospital Burn Surgery / Burn Care Casey Schneider MD Encounter Aron Sandra MD 02/10/2018 Hospital Burn Surgery / Burn Care Casey Schneider MD Encounter Naga Irby MD 02/09/2018 Hospital Burn Surgery / Burn Care SchneiderCasey MD Encounter Ike rGegg, DO 02/08/2018 [facility] Burn Surgery / Burn Care Casey Schneider MD Encounter Aron Sandra MD 02/07/2018 [facility] Burn Surgery / Burn Care Casey Schneider MD Encounter Aron Sandra MD 02/04/2018 Hospital Burn Surgery / Burn Care Tamiko Luther MD Encounter Cristino Perrin MD 02/03/2018 Hospital Burn Surgery / Burn Care Tamiko Luther MD Encounter Naga Irby MD 02/02/2018 Hospital Burn Surgery / Burn Care Casey Schneider MD Encounter Ike Gregg, DO 02/01/2018 Hospital Burn Surgery / Burn Care Casey Schneider MD Encounter Ramos Goel MD 01/31/2018 [facility] Burn Surgery / Burn Care Casey Schneider MD Encounter Cristino Perrin MD 01/14/2018 Hospital Rehabilitation Ruth Mccray MD Left hip amputation - Encounter Arnaldo Delacruz MD status 03/02/2018 01/14/2018 Pharmacy Visit 01/14/2018 Pharmacy Visit 01/10/2018 Anesthesia Sam Posadas MD Event 01/10/2018 Procedure Pass 01/10/2018 Surgery Tamiko Luther MD WOUND EXPLORATION LEFT HEMIPELVECTOMY, IRRIGATION AND DEBRIDEMENT, WOUND VAC PLACEMENT 01/07/2018 Prep for Case Adrienne Zarate MD 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 Procedure Pass [facility] 12/31/2017 Hosp Julia Edward Documentation Only 12/30/2017 Procedure Pass 12/30/2017 Surgery Aimee Mccollum DO COLOSTOMY DIVERTING LOOP, EXPLORATORY LAPAROTOMY LYSIS OF ADHESIONS, 12/29/2017 Anesthesia Price Mccartney SRNA Event 12/25/2017 Procedure Pass [facility] 12/15/2017 Anesthesia Intensive Care Gagan Mckenna DO Event 12/15/2017 Orders Only Urology Spencer Purcell MD Injury of bladder, sequela (Primary Dx) 12/14/2017 Procedure Pass 12/14/2017 Procedure Pass 12/14/2017 Surgery Tamiko Luther MD CHEY PELVECTOMY 12/13/2017 [facility] Tamiko Luther MD Metabolic acidosis - Encounter 01/14/2018 12/13/2017 Anesthesia Krunal Joaquin SRNA Event 12/13/2017 Prep for Case Craig Day MD Chondrosarcoma (HCC) (Primary Dx) 12/10/2017 Telephone Orthopedic Surgery Tamiko Luther MD Other 12/06/2017 Telephone Orthopedic Surgery Tamiko Luther MD Wound Check from Last 3 Months Family History Medical History Relation Name Comments Arthritis-rheumatoid Maternal Grandmother Osteoporosis Mother Relation Name Status Comments Maternal Grandmother Mother Social History Tobacco Use Types Packs/Day Years Used Date Never Smoker Smokeless Tobacco: Never Used Alcohol Use Drinks/Week oz/Week Comments No Sex Assigned at Date Recorded Not on file Last Filed Vital Signs Vital Sign Reading Time Taken Blood Pressure 140/73 03/02/2018 2:45 PM CDT Pulse 120 03/02/2018 2:45 PM CDT Temperature 36.9 C (98.5 F) 03/02/2018 2:45 PM CDT Respiratory Rate 20 02/22/2018 1:32 PM CDT Oxygen Saturation 96% 03/02/2018 2:45 PM CDT Inhaled Oxygen - - Concentration Weight 97.9 kg (215 lb 12.9 oz) 03/02/2018 5:00 AM CDT Height 160 cm (5' 3") 01/14/2018 4:15 PM CDT Body Mass Index 38.23 03/02/2018 5:00 AM CDT Plan of Treatment Date Type Specialty Care Team Description 03/01/2018 Procedure Pass Cardiothoracic Surgery Health Maintenance Due Date Last Done Comments HEPATITIS C SCREENING 1965 PHYSICAL (COMPREHENSIVE) 1972 EXAM PERTUSSIS VACCINE 1976 HIV SCREENING 1980 TETANUS VACCINE 1982 CERVICAL CANCER SCREENING 1995 BREAST CANCER SCREENING 2005 COLORECTAL CANCER 2015 SCREENING INFLUENZA VACCINE 06/20/2018 Implants Implanted Type Area Business Systems Administrator Device Expiration Model / Identifier Date Serial / Lot Filter Embolization 48mm Jugular Vena Cava TARAN GRP:TARAN 07/08/2020 [id number] / Vena Cava [address] [employer] - Sn/A N/A / Implanted: Qty: 1 on 11/30/2017 by [id number] Vincenzo Dumont MD Procedures Procedure Name Priority Date/Time Associated Diagnosis Comments CONSULT IV THERAPY TEAM STAT 03/02/2018 8:24 AM CDT CONSULT IV THERAPY TEAM Routine 01/21/2018 5:01 PM CDT ECG-SCAN 01/21/2018 Results for this 7:53 AM CDT procedure are in the results section. ECG-SCAN 01/21/2018 Results for this 7:53 AM CDT procedure are in the results section. ECG-SCAN 01/21/2018 Results for this 7:53 AM CDT procedure are in the results section. ECG-SCAN 01/15/2018 Results for this 12:45 PM CDT procedure are in the results section. TELEMETRY STRIPS-SCAN 01/15/2018 Results for this 11:03 AM CDT procedure are in the results section. CYSTOGRAM, SHIRLEY CATHETER 01/10/2018 Chondrosarcoma (HCC) EXCHANGE 9:35 AM CDT WOUND EXPLORATION LEFT 01/10/2018 Chondrosarcoma (HCC) HEMIPELVECTOMY, 9:35 AM CDT IRRIGATION AND DEBRIDEMENT, WOUND VAC PLACEMENT ECG-SCAN 01/02/2018 Results for this 7:45 PM CDT procedure are in the results section. CONSULT IV THERAPY TEAM STAT 12/30/2017 3:42 PM CDT COLOSTOMY DIVERTING LOOP, 12/30/2017 Pelvic mass in female EXPLORATORY LAPAROTOMY 9:00 AM CDT LYSIS OF ADHESIONS, ECG-SCAN 12/22/2017 Results for this 8:10 AM CDT procedure are in the results section. ECG-SCAN 12/22/2017 Results for this 8:10 AM CDT procedure are in the results section. ANESTHESIA EPIDURAL BLOCK Routine 12/15/2017 Results for this 12:50 PM CDT procedure are in the results section. ANESTHESIA ARTERIAL LINE Routine 12/14/2017 Results for this INSERTION 1:40 PM CDT procedure are in the results section. LEFT ILIAC EXPOSURE 12/14/2017 Pelvic mass 8:00 AM CDT CYSTORRHAPHY AND BLADDER 12/14/2017 Pelvic mass NECK REPAIR, CYSTOSCOPY, 8:00 AM CDT CHEY PELVECTOMY 12/14/2017 Pelvic mass 8:00 AM CDT CONSULT IV THERAPY TEAM Routine 12/13/2017 11:06 AM CDT ECG-SCAN 12/07/2017 Results for this 1:24 PM CDT procedure are in the results section. ECG-SCAN 12/04/2017 Results for this 5:10 PM CDT procedure are in the results section. from Last 3 Months Results * POC GLUCOSE (03/02/2018 11:43 AM) Only the most recent of 416 results within the time period is included. Component Value Ref Range Glucose, POC 150 (H) 70 - 100 MG/DL Specimen Performing Laboratory [facility] [address] [place] [address] * BASIC METABOLIC PANEL CELLULAR THERAPEUTICS (03/02/2018 8:15 AM) Only the most recent of 27 results within the time period is included. Component Value Ref Range Sodium 137 137 - 147 MMOL/L Potassium 4.4 3.5 - 5.1 MMOL/L Chloride 104 98 - 110 MMOL/L CO2 27 21 - 30 MMOL/L Anion Gap 6 3 - 12 Glucose 110 (H) 70 - 100 MG/DL Blood Urea Nitrogen 12 7 - 25 MG/DL Creatinine 0.92 0.4 - 1.00 MG/DL Calcium 8.6 8.5 - 10.6 MG/DL eGFR Non >60 >60 mL/min Comment: The eGFR is not validated for use in drug dosing adjustments.Continue to use estimated creatinine clearance per dosing reference text.Please contact the Clinical Pharmacist for questions. eGFR >60 >60 mL/min Comment: The eGFR is not validated for use in drug dosing adjustments.Continue to use estimated creatinine clearance per dosing reference text.Please contact the Clinical Pharmacist for questions. Specimen Performing Laboratory [facility] [address] [place], [place] [id number] * CBC CELLULAR THERAPEUTICS (03/02/2018 8:15 AM) Only the most recent of 20 results within the time period is included. Component Value Ref Range White Blood Cells 9.8 4.5 - 11.0 K/UL RBC 3.08 (L) 4.0 - 5.0 M/UL Hemoglobin 8.0 (L) 12.0 - 15.0 GM/DL Hematocrit 24.1 (L) 36 - 45 % MCV 78.1 (L) 80 - 100 FL MCH 26.1 26 - 34 PG MCHC 33.4 32.0 - 36.0 G/DL RDW 21.9 (H) 11 - 15 % Platelet Count 533 (H) 150 - 400 K/UL MPV 6.6 (L) 7 - 11 FL Specimen Performing Laboratory [facility] [address] [place] [id number] * VANCOMYCIN TROUGH (03/01/2018 8:07 PM) Only the most recent of 7 results within the time period is included. Component Value Ref Range Vancomycin Trough 17.3 10.0 - 20.0 MCG/ML Specimen Performing Laboratory Blood, venous - [facility] [address] [place] [address] * LIVER FUNCTION PANEL (03/01/2018 8:07 PM) Only the most recent of 7 results within the time period is included. Component Value Ref Range Total Bilirubin 0.3 0.3 - 1.2 MG/DL Bilirubin, Direct <0.1 <0.4 MG/DL Albumin 2.3 (L) 3.5 - 5.0 G/DL Alk Phosphatase 110 25 - 110 U/L AST (SGOT) 47 (H) 7 - 40 U/L ALT (SGPT) 26 7 - 56 U/L Total Protein 5.7 (L) 6.0 - 8.0 G/DL Specimen Performing Laboratory [facility] [address] [place] [id number] * PREALBUMIN (02/28/2018 8:08 AM) Only the most recent of 9 results within the time period is included. Component Value Ref Range Prealbumin 7.0 (L) 17 - 34 MG/DL Specimen Performing Laboratory [facility] [address] [place] [address] * TRANSFUSE RBC'S NON-BLEEDING PT (02/27/2018 2:00 PM) Only the most recent of 7 results within the time period is included. Specimen Performing Laboratory Blood * GRAM STAIN (02/27/2018 10:12 AM) Component Value Ref Range Battery Name GRAM STAIN Specimen Description SWAB Special Requests NONE Gram Stain RARE NEUTROPHILS FEW GRAM NEGATIVE RODS FEW GRAM POSITIVE COCCI Report Status FINAL 02/27/2018 Specimen Performing Laboratory [facility] [address] [place] [address] * CULTURE-WOUND/TISSUE/FLUID(AEROBIC ONLY)W/SENSITIVITY (02/27/2018 10:12 AM) Component Value Ref Range Battery Name ROUTINE CULTURE Specimen Description SWAB WD Special Requests NONE Direct Gram Stain RARE NEUTROPHILS FEW GRAM NEGATIVE RODS FEW GRAM POSITIVE COCCI Culture Heavy growth ENTEROBACTER CLOACAE,CARBAPENEM RESISTANT Heavy growth ACINETOBACTER BAUMANNII Light growth ESCHERICHIA COLI Light growth METHICILLIN RESISTANT STAPHYLOCOCCUS AUREUS notified Mauro Tapan/06./KA (A) Report Status FINAL 03/03/2018 Organism ID Heavy growth ACINETOBACTER BAUMANNII Organism ID Light growth ESCHERICHIA COLI Organism ID Light growth METHICILLIN RESISTANT STAPHYLOCOCCUS AUREUS Organism ID Heavy growth ENTEROBACTER CLOACAE,CARBAPENEM RESISTANT Organism ID Heavy growth ENTEROBACTER CLOACAE,CARBAPENEM RESISTANT Organism ID Light growth METHICILLIN RESISTANT STAPHYLOCOCCUS AUREUS Specimen Performing Laboratory [facility] [address] [place] [address] Organism Antibiotic Method Susceptibility Heavy growth Cefepime DAI (MCG/ML) >16 RESISTANT: Resistant acinetobacter baumannii INTERPRETATION Heavy growth Ceftriaxone DAI (MCG/ML) >32 RESISTANT: Resistant acinetobacter baumannii INTERPRETATION Heavy growth Gentamicin DAI (MCG/ML) 4 SUSCEPTIBLE: acinetobacter baumannii INTERPRETATION Susceptible Heavy growth Levofloxacin DAI (MCG/ML) >4 RESISTANT: Resistant acinetobacter baumannii INTERPRETATION Heavy growth Trimethsulfa DAI (MCG/ML) >2/38 RESISTANT: acinetobacter baumannii INTERPRETATION Resistant Heavy growth Meropenem DAI (MCG/ML) >8 RESISTANT: Resistant acinetobacter baumannii INTERPRETATION Heavy growth Amikacin DAI (MCG/ML) <=8 SUSCEPTIBLE: acinetobacter baumannii INTERPRETATION Susceptible Heavy growth Method DAI (MCG/ML) DAI (MCG/ML) acinetobacter baumannii INTERPRETATION INTERPRETATION Light growth escherichia Amikacin DAI (MCG/ML) <=8 SUSCEPTIBLE: coli INTERPRETATION Susceptible Light growth escherichia Cefazolin DAI (MCG/ML) <=1 SUSCEPTIBLE: coli INTERPRETATION Susceptible Light growth escherichia Ceftriaxone DAI (MCG/ML) <=1 SUSCEPTIBLE: coli INTERPRETATION Susceptible Light growth escherichia Gentamicin DAI (MCG/ML) <=2 SUSCEPTIBLE: coli INTERPRETATION Susceptible Light growth escherichia Ertapenem DAI (MCG/ML) <=0.25 SUSCEPTIBLE: coli INTERPRETATION Susceptible Light growth escherichia Levofloxacin DAI (MCG/ML) <=1 SUSCEPTIBLE: coli INTERPRETATION Susceptible Light growth escherichia Amoxicil/Clav Acid DAI (MCG/ML) <=4/2 SUSCEPTIBLE: coli INTERPRETATION Susceptible Light growth escherichia Piperacil/Tazobactam DAI (MCG/ML) <=2/4 SUSCEPTIBLE: coli INTERPRETATION Susceptible Light growth escherichia Trimethsulfa DAI (MCG/ML) <=0.5/9.5 SUSCEPTIBLE : coli INTERPRETATION Susceptible Light growth escherichia Method DAI (MCG/ML) DAI (MCG/ML) coli INTERPRETATION INTERPRETATION Light growth methicillin Clindamycin DAI (MCG/ML) >2 RESISTANT: Resistant resistant staphylococcus INTERPRETATION aureus Light growth methicillin Erythromycin DAI (MCG/ML) >4 RESISTANT: Resistant resistant staphylococcus INTERPRETATION aureus Light growth methicillin Oxacillin DAI (MCG/ML) >2 RESISTANT: Resistant resistant staphylococcus INTERPRETATION aureus Light growth methicillin Vancomycin DAI (MCG/ML) <=0.5 SUSCEPTIBLE: resistant staphylococcus INTERPRETATION Susceptible aureus Light growth methicillin Tetracycline DAI (MCG/ML) <=0.5 SUSCEPTIBLE: resistant staphylococcus INTERPRETATION Susceptible aureus Light growth methicillin Gentamicin DAI (MCG/ML) <=2 SUSCEPTIBLE: resistant staphylococcus INTERPRETATION Susceptible aureus Light growth methicillin Rifampin DAI (MCG/ML) <=0.5 SUSCEPTIBLE: resistant staphylococcus INTERPRETATION Susceptible aureus Light growth methicillin Linezolid DAI (MCG/ML) 1 SUSCEPTIBLE: resistant staphylococcus INTERPRETATION Susceptible aureus Light growth methicillin Method DAI (MCG/ML) DAI (MCG/ML) resistant staphylococcus INTERPRETATION INTERPRETATION aureus Heavy growth enterobacter Ertapenem GRAF ARDON RESISTANT: Resistant cloacae,carbapenem resistant Heavy growth enterobacter Imipenem GRAF ARDON INTERMEDIATE: cloacae,carbapenem Intermediate resistant Heavy growth enterobacter Meropenem GRAF ARDON INTERMEDIATE: cloacae,carbapenem Intermediate resistant Heavy growth enterobacter Method GRAF ARDON GRAF ARDON cloacae,carbapenem resistant Heavy growth enterobacter Amikacin DAI (MCG/ML) <=8 SUSCEPTIBLE: cloacae,carbapenem INTERPRETATION Susceptible resistant Heavy growth enterobacter Cefazolin DAI (MCG/ML) >16 RESISTANT: Resistant cloacae,carbapenem INTERPRETATION resistant Heavy growth enterobacter Gentamicin DAI (MCG/ML) <=2 SUSCEPTIBLE: cloacae,carbapenem INTERPRETATION Susceptible resistant Heavy growth enterobacter Levofloxacin DAI (MCG/ML) <=1 SUSCEPTIBLE: cloacae,carbapenem INTERPRETATION Susceptible resistant Heavy growth enterobacter Amoxicil/Clav Acid DAI (MCG/ML) >16/8 RESISTANT: cloacae,carbapenem INTERPRETATION Resistant resistant Heavy growth enterobacter Piperacil/Tazobactam DAI (MCG/ML) >64/4 RESISTANT: cloacae,carbapenem INTERPRETATION Resistant resistant Heavy growth enterobacter Trimethsulfa DAI (MCG/ML) <=0.5/9.5 SUSCEPTIBLE: cloacae,carbapenem INTERPRETATION Susceptible resistant Heavy growth enterobacter Method DAI (MCG/ML) DAI (MCG/ML) cloacae,carbapenem INTERPRETATION INTERPRETATION resistant Light growth methicillin Trimethsulfa GRAF ARDON SUSCEPTIBLE: Susceptible resistant staphylococcus aureus Light growth methicillin Method GRAF ARDON GRAF ARDON resistant staphylococcus aureus * UA REFLEX CULTURE LABEL (02/27/2018 7:45 AM) Only the most recent of 3 results within the time period is included. Component Value Ref Range UA Reflex Culture LAB LABEL Specimen Performing Laboratory Urine MAIN LAB [address] [place] [address] * URINALYSIS MICROSCOPIC REFLEX TO CULTURE (02/27/2018 7:45 AM) Only the most recent of 3 results within the time period is included. Component Value Ref Range WBCs,UA 10-20 0 - 2 /HPF RBCs,UA 0-2 0 - 3 /HPF Comment,UA Urine submitted for reflex culture if criteria are met:WBC>10, positive nitrite and/or >=1+ leukocyte esterase. If quantity is not sufficient, an addendum will follow. MucousUA TRACE Squamous Epithelial Cells 0-2 0 - 5 Hyaline Cast 0-2 Specimen Performing Laboratory Urine MAIN LAB [address] [place] [address] * URINALYSIS DIPSTICK REFLEX TO CULTURE (02/27/2018 7:45 AM) Only the most recent of 3 results within the time period is included. Component Value Ref Range Color,UA YELLOW Turbidity,UA CLEAR CLEAR-CLEAR Specific [place]-Urine 1.018 1.003 - 1.035 pH,UA 5.0 5.0 - 8.0 Protein,UA NEG NEG-NEG Glucose,UA NEG NEG-NEG Ketones,UA NEG NEG-NEG Bilirubin,UA NEG NEG-NEG Blood,UA NEG NEG-NEG Urobilinogen,UA NORMAL NORM-NORMAL Nitrite,UA NEG NEG-NEG Leukocytes,UA 1+ (A) NEG-NEG Urine Ascorbic Acid, UA NEG NEG-NEG Specimen Performing Laboratory Urine MAIN LAB [address] [place] [address] * CULTURE-URINE W/SENSITIVITY (02/27/2018 7:45 AM) Only the most recent of 4 results within the time period is included. Component Value Ref Range Battery Name URINE CULTURE Specimen Description URINE Special Requests NONE Culture <100,000 organisms/ml ESCHERICHIA COLI <10,000 organisms/ml CONTAMINANT (A) Report Status FINAL 03/02/2018 Organism ID <100,000 organisms/ml ESCHERICHIA COLI Specimen Performing Laboratory Urine MAIN LAB [address] [place] [address] Organism Antibiotic Method Susceptibility <100,000 organisms/ml Ampicillin DAI (MCG/ML) <=4 SUSCEPTIBLE: escherichia coli INTERPRETATION Susceptible <100,000 organisms/ml Amoxicil/Clav Acid DAI (MCG/ML) <=4/2 SUSCEPTIBLE: escherichia coli INTERPRETATION Susceptible <100,000 organisms/ml Levofloxacin DAI (MCG/ML) <=1 SUSCEPTIBLE: escherichia coli INTERPRETATION Susceptible <100,000 organisms/ml Nitrofurantoin DAI (MCG/ML) <=16 SUSCEPTIBLE: escherichia coli INTERPRETATION Susceptible <100,000 organisms/ml Gentamicin DAI (MCG/ML) <=2 SUSCEPTIBLE: escherichia coli INTERPRETATION Susceptible <100,000 organisms/ml Trimethsulfa DAI (MCG/ML) <=0.5/9.5 SUSCEPTIBLE: escherichia coli INTERPRETATION Susceptible <100,000 organisms/ml Piperacil/Tazobactam DAI (MCG/ML) <=2/4 SUSCEPTIBLE: escherichia coli INTERPRETATION Susceptible <100,000 organisms/ml Tetracycline DAI (MCG/ML) <=2 SUSCEPTIBLE: escherichia coli INTERPRETATION Susceptible <100,000 organisms/ml Cefepime DAI (MCG/ML) <=1 SUSCEPTIBLE: escherichia coli INTERPRETATION Susceptible <100,000 organisms/ml Ertapenem DAI (MCG/ML) <=0.25 SUSCEPTIBLE: escherichia coli INTERPRETATION Susceptible <100,000 organisms/ml Ceftriaxone DAI (MCG/ML) <=1 SUSCEPTIBLE: escherichia coli INTERPRETATION Susceptible <100,000 organisms/ml Method DAI (MCG/ML) DAI (MCG/ML) escherichia coli INTERPRETATION INTERPRETATION * TYPE & CROSSMATCH (02/27/2018 7:45 AM) Only the most recent of 7 results within the time period is included. Component Value Ref Range Units Ordered 1 Crossmatch Expires 03/02/2018 Record Check FOUND ABO/RH(D) A POS Antibody Screen NEG Electronic Crossmatch YES Unit Number [id number] Blood Component Type RBC,ADSOL,LEUKO REDUCED Unit Division 0 Status OF Unit TRANSFUSED Transfusion Status OK TO TRANSFUSE Crossmatch Result COMPATIBLE,ELECTRONIC Specimen Performing Laboratory Blood MAIN LAB [address] [place] [address] * LACTIC ACID (BG - RAPID LACTATE) (02/27/2018 4:50 AM) Only the most recent of 6 results within the time period is included. Component Value Ref Range Lactic Acid,BG 1.0 0.5 - 2.0 MMOL/L Specimen Performing Laboratory Blood MAIN LAB [address] [place] [address] * CBC AND DIFF (02/27/2018 4:50 AM) Only the most recent of 18 results within the time period is included. Component Value Ref Range White Blood Cells 8.9 4.5 - 11.0 K/UL RBC 2.66 (L) 4.0 - 5.0 M/UL Hemoglobin 6.7 (L) 12.0 - 15.0 GM/DL Hematocrit 20.6 (L) 36 - 45 % MCV 77.5 (L) 80 - 100 FL MCH 25.1 (L) 26 - 34 PG MCHC 32.3 32.0 - 36.0 G/DL RDW 21.3 (H) 11 - 15 % Platelet Count 503 (H) 150 - 400 K/UL MPV 6.9 (L) 7 - 11 FL Neutrophils 75 41 - 77 % Lymphocytes 8 (L) 24 - 44 % Monocytes 14 (H) 4 - 12 % Eosinophils 3 0 - 5 % Basophils 0 0 - 2 % Absolute Neutrophil Count 6.70 1.8 - 7.0 K/UL Absolute Lymph Count 0.70 (L) 1.0 - 4.8 K/UL Absolute Monocyte Count 1.20 (H) 0 - 0.80 K/UL Absolute Eosinophil Count 0.20 0 - 0.45 K/UL Absolute Basophil Count 0.00 0 - 0.20 K/UL Specimen Performing Laboratory Blood MAIN LAB [address] [place] [address] * CHEST SINGLE VIEW (02/26/2018 6:04 PM) Only the most recent of 3 results within the time period is included. Specimen Performing Laboratory [facility] RESULTS Impressions Limited depth of inspiration with bibasilar atelectasis, greater on the right. Approved by Aguilar Toussaint M.D. on 02/27/2018 8:56 AM By my electronic signature, I attest that I have personally reviewed the images for this examination and formulated the interpretations and opinions expressed in this report Finalized by Keo Pressley M.D. on 02/27/2018 9:43 AM. Dictated by Aguilar Toussaint M.D. on 02/27/2018 7:44 AM. Narrative CHEST SINGLE VIEW Clinical Indication: Female, 52 years old. Fever Comparison: CT chest prior day Findings: The patient is slightly rotated. The heart is normal in size without pulmonary venous congestion. Persistent limited depth of inspiration with bibasilar atelectasis, greater on the right. No focal consolidation, pleural effusion, or pneumothorax. Procedure Note Interface, Radiant Results - 02/27/2018 9:46 AM CDT CHEST SINGLE VIEW Clinical Indication: Female, 52 years old. Fever Comparison: CT chest prior day Findings: The patient is slightly rotated. The heart is normal in size without pulmonary venous congestion. Persistent limited depth of inspiration with bibasilar atelectasis, greater on the right. No focal consolidation, pleural effusion, or pneumothorax. IMPRESSION Limited depth of inspiration with bibasilar atelectasis, greater on the right. Approved by Aguilar Toussaint M.D. on 02/27/2018 8:56 AM By my electronic signature, I attest that I have personally reviewed the images for this examination and formulated the interpretations and opinions expressed in this report Finalized by Keo Pressley M.D. on 02/27/2018 9:43 AM. Dictated by Aguilar Toussaint M.D. on 02/27/2018 7:44 AM. * CULTURE-BLOOD W/SENSITIVITY (02/26/2018 5:48 PM) Only the most recent of 11 results within the time period is included. Component Value Ref Range Battery Name BLOOD CULTURE Specimen Description BLOOD NO SITE INDICATED Special Requests NONE Culture NO GROWTH 5 DAYS Report Status FINAL 03/04/2018 Specimen Performing Laboratory Blood [facility] [address] [place] [address] * CT CHEST W CONTRAST (02/25/2018 4:46 PM) Specimen Performing Laboratory [facility] RES[facility] Impressions 1. Several stable tiny pulmonary nodules are seen in both lungs. These are most likely scars or granulomas. If there are no significant risk factors for pulmonary malignancy, no further follow-up of these nodules is required. 2. New faint nodular tree-in-bud infiltrate in the right lung most compatible with minimal atypical pneumonitis. 3. [id number] atelectasis in the right lung base. Finalized by Boubacar Loomis M.D. on 02/25/2018 4:52 PM. Dictated by Boubacar Loomis M.D. on 02/25/2018 4:[address] Chest Clinical Indication: Pulmonary nodules. Technique: Multiple contiguous axial CT images were obtained through the chest during IV administration of Isovue-370 IV contrast.Post processing coronal and sagittal reconstruction images were made from the axial images. Comparison: November 26, [address] Findings: Axilla, Mediastinum and Sofía: There is no axillary lymphadenopathy. A few mildly prominent mediastinal and left hilar lymph nodes are again noted which are stable and most likely reactive. There is no right hilar lymphadenopathy identified. Heart and Great Vessels: The heart size is normal. There is no pericardial effusion. Lungs and Pleura: There is mild to moderate atelectasis now seen in the right lung base. There is mild dependent atelectasis in both lungs. There are several unchanged tiny pulmonary nodules. A promotions representative nodule along the right minor fissure again measures 0.4 cm on series 5, image 23. Other unchanged tiny nodules are noted in the right lung on image 14, 16, as well as in the left lung on image 21 and 34. A new faint nodular tree-in-bud infiltrate is now seen in the right lung on images 23-26. Several of the previously identified tiny nodules in the right lung base are obscured by atelectasis. No pleural effusions. Chest Wall and Osseous Structures: No destructive osseous lesions. There is moderate diffuse upper abdominal wall edema. Visualized Upper Abdomen: No significant upper abdominal abnormalities are identified. Procedure Note Interface, Radiant Results - 02/25/2018 4:[address] Chest Clinical Indication: Pulmonary nodules. Technique: Multiple contiguous axial CT images were obtained through the chest during IV administration of Isovue-370 IV contrast. Post processing coronal and sagittal reconstruction images were made from the axial images. Comparison: November 26, [address] Findings: Axilla, Mediastinum and Sofía: There is no axillary lymphadenopathy. A few mildly prominent mediastinal and left hilar lymph nodes are again noted which are stable and most likely reactive. There is no right hilar lymphadenopathy identified. Heart and Great Vessels: The heart size is normal. There is no pericardial effusion. Lungs and Pleura: There is mild to moderate atelectasis now seen in the right lung base. There is mild dependent atelectasis in both lungs. There are several unchanged tiny pulmonary nodules. A promotions representative nodule along the right minor fissure again measures 0.4 cm on series 5, image 23. Other unchanged tiny nodules are noted in the right lung on image 14, 16, as well as in the left lung on image 21 and 34. A new faint nodular tree-in-bud infiltrate is now seen in the right lung on images 23-26. Several of the previously identified tiny nodules in the right lung base are obscured by atelectasis. No pleural effusions. Chest Wall and Osseous Structures: No destructive osseous lesions. There is moderate diffuse upper abdominal wall edema. Visualized Upper Abdomen: No significant upper abdominal abnormalities are identified. IMPRESSION 1. Several stable tiny pulmonary nodules are seen in both lungs. These are most likely scars or granulomas. If there are no significant risk factors for pulmonary malignancy, no further follow-up of these nodules is required. 2. New faint nodular tree-in-bud infiltrate in the right lung most compatible with minimal atypical pneumonitis. 3. [id number] atelectasis in the right lung base. Finalized by Boubacar Loomis M.D. on 02/25/2018 4:52 PM. Dictated by Boubacar Loomis M.D. on 02/25/2018 4:41 PM. * CBC (02/13/2018 3:08 PM) Only the most recent of 35 results within the time period is included. Component Value Ref Range White Blood Cells 12.1 (H) 4.5 - 11.0 K/UL RBC 3.08 (L) 4.0 - 5.0 M/UL Hemoglobin 8.1 (L) 12.0 - 15.0 GM/DL Hematocrit 24.4 (L) 36 - 45 % MCV 79.2 (L) 80 - 100 FL MCH 26.4 26 - 34 PG MCHC 33.3 32.0 - 36.0 G/DL RDW 21.2 (H) 11 - 15 % Platelet Count 501 (H) 150 - 400 K/UL MPV 6.8 (L) 7 - 11 FL Specimen Performing Laboratory Blood [facility] [address] [place] [address] * HEMOGLOBIN (01/31/2018 11:50 AM) Component Value Ref Range Hemoglobin 8.5 (L) 12.0 - 15.0 GM/DL Specimen Performing Laboratory Blood [facility] [address] [place] [address] * COMPREHENSIVE METABOLIC PANEL (01/28/2018 6:00 AM) Only the most recent of 3 results within the time period is included. Component Value Ref Range Sodium 135 (L) 137 - 147 MMOL/L Potassium 3.8 3.5 - 5.1 MMOL/L Chloride 99 98 - 110 MMOL/L Glucose 153 (H) 70 - 100 MG/DL Blood Urea Nitrogen 14 7 - 25 MG/DL Creatinine 0.60 0.4 - 1.00 MG/DL Calcium 8.6 8.5 - 10.6 MG/DL Total Protein 5.5 (L) 6.0 - 8.0 G/DL Total Bilirubin 0.2 (L) 0.3 - 1.2 MG/DL Albumin 2.3 (L) 3.5 - 5.0 G/DL Alk Phosphatase 110 25 - 110 U/L AST (SGOT) 38 7 - 40 U/L CO2 29 21 - 30 MMOL/L ALT (SGPT) 47 7 - 56 U/L Anion Gap 7 3 - 12 eGFR Non >60 >60 mL/min Comment: The eGFR is not validated for use in drug dosing adjustments.Continue to use estimated creatinine clearance per dosing reference text.Please contact the Clinical Pharmacist for questions. eGFR >60 >60 mL/min Comment: The eGFR is not validated for use in drug dosing adjustments.Continue to use estimated creatinine clearance per dosing reference text.Please contact the Clinical Pharmacist for questions. Specimen Performing Laboratory Blood [facility] [address] [place] [address] * URINALYSIS, MICROSCOPIC (01/26/2018 11:26 PM) Only the most recent of 2 results within the time period is included. Component Value Ref Range WBCs,UA 0-2 0 - 2 /HPF RBCs,UA NONE 0 - 3 /HPF Specimen Performing Laboratory Urine MAIN LAB [address] [place], [place] [id number] * URINALYSIS DIPSTICK (01/26/2018 11:26 PM) Only the most recent of 2 results within the time period is included. Component Value Ref Range Color,UA STRAW Turbidity,UA CLEAR CLEAR-CLEAR Specific [place]ager-Urine 1.003 1.003 - 1.035 pH,UA 7.0 5.0 - 8.0 Protein,UA NEG NEG-NEG Glucose,UA NEG NEG-NEG Ketones,UA NEG NEG-NEG Bilirubin,UA NEG NEG-NEG Blood,UA NEG NEG-NEG Urobilinogen,UA NORMAL NORM-NORMAL Nitrite,UA NEG NEG-NEG Leukocytes,UA TRACE (A) NEG-NEG Urine Ascorbic Acid, UA NEG NEG-NEG Specimen Performing Laboratory Urine [facility] [address] [place], [place] [id number] * FREE T4-FREE THYROXINE (01/25/2018 5:46 AM) Component Value Ref Range T4-Free 0.8 0.6 - 1.6 NG/DL Specimen Performing Laboratory [facility] [address] [place], [place] [id number] * TSH WITH FREE T4 REFLEX (01/25/2018 5:46 AM) Component Value Ref Range TSH 10.130 (H) 0.35 - 5.00 MCU/ML Specimen Performing Laboratory Blood [facility] [address] [place] [address] * LACTIC ACID(LACTATE) (01/21/2018 9:30 PM) Only the most recent of 4 results within the time period is included. Component Value Ref Range Lactic Acid 1.4 0.5 - 2.0 MMOL/L Specimen Performing Laboratory [facility] [address] [place], [place] [id number] * ABDOMEN AP ONLY (01/21/2018 3:27 PM) Only the most recent of 4 results within the time period is included. Specimen Performing Laboratory [facility] RESULTS Impressions Enteric tube with tip in the gastric body. Approved by Skyler Macias M.D. on 01/21/2018 4:19 PM By my electronic signature, I attest that I have personally reviewed the images for this examination and formulated the interpretations and opinions expressed in this report Finalized by ANTHONY CORMIER M.D. on 01/21/2018 4:24 PM. Dictated by Skyler Macias M.D. on 01/21/2018 4:06 PM. Narrative Procedure: ABDOMEN AP ONLY Clinical Indication: Corpak placement. Comparison: CT abdomen/pelvis January 06, 2018. FINDINGS: Single portable AP abdominal radiograph was obtained. Enteric tube courses below the diaphragm and is looped in the stomach with tip in the gastric body. Incisional ceci overlie the right abdomen and left pelvis. IVC filter is noted. Visualized bowel gas pattern is nonobstructive. Procedure Note Interface, Radiant Results - 01/21/2018 4:27 PM CDT Procedure: ABDOMEN AP ONLY Clinical Indication: Corpak placement. Comparison: CT abdomen/pelvis January 06, 2018. FINDINGS: Single portable AP abdominal radiograph was obtained. Enteric tube courses below the diaphragm and is looped in the stomach with tip in the gastric body. Incisional ceci overlie the right abdomen and left pelvis. IVC filter is noted. Visualized bowel gas pattern is nonobstructive. IMPRESSION Enteric tube with tip in the gastric body. Approved by Skyler Macias M.D. on 01/21/2018 4:19 PM By my electronic signature, I attest that I have personally reviewed the images for this examination and formulated the interpretations and opinions expressed in this report Finalized by ANTHONY CORMIER M.D. on 01/21/2018 4:24 PM. Dictated by Skyler Macias M.D. on 01/21/2018 4:06 PM. * ECG-SCAN (01/21/2018 7:53 AM) Narrative Ordered by an unspecified provider. * ECG-SCAN (01/21/2018 7:53 AM) Narrative Ordered by an unspecified provider. * ECG-SCAN (01/21/2018 7:53 AM) Narrative Ordered by an unspecified provider. * ALBUMIN (01/17/2018 1:11 PM) Only the most recent of 3 results within the time period is included. Component Value Ref Range Albumin 2.6 (L) 3.5 - 5.0 G/DL Specimen Performing Laboratory Blood [facility] [address] [place] [address] * ECG-SCAN (01/15/2018 12:45 PM) Narrative Ordered by an unspecified provider. * TELEMETRY STRIPS-SCAN (01/15/2018 11:03 AM) Narrative Ordered by an unspecified provider. * BASIC METABOLIC PANEL (01/14/2018 4:40 AM) Only the most recent of 38 results within the time period is included. Component Value Ref Range Sodium 137 137 - 147 MMOL/L Potassium 4.3 3.5 - 5.1 MMOL/L Chloride 101 98 - 110 MMOL/L CO2 28 21 - 30 MMOL/L Anion Gap 8 3 - 12 Glucose 237 (H) 70 - 100 MG/DL Blood Urea Nitrogen 12 7 - 25 MG/DL Creatinine 0.61 0.4 - 1.00 MG/DL Calcium 8.3 (L) 8.5 - 10.6 MG/DL eGFR Non >60 >60 mL/min Comment: The eGFR is not validated for use in drug dosing adjustments.Continue to use estimated creatinine clearance per dosing reference text.Please contact the Clinical Pharmacist for questions. eGFR >60 >60 mL/min Comment: The eGFR is not validated for use in drug dosing adjustments.Continue to use estimated creatinine clearance per dosing reference text.Please contact the Clinical Pharmacist for questions. Specimen Performing Laboratory Blood MAIN LAB [address] [place] [address] * TRIGLYCERIDE (01/13/2018 3:42 AM) Only the most recent of 5 results within the time period is included. Component Value Ref Range Triglycerides 254 (H) <150 MG/DL Specimen Performing Laboratory Blood MAIN LAB [address] [place] [address] * FLUORO MOBILE IN OR (01/10/2018 9:51 AM) Specimen Performing Laboratory [facility] Narrative This order has been auto finalized and does not contain a result. * THYROID STIMULATING HORMONE-TSH (01/09/2018 1:40 PM) Only the most recent of 3 results within the time period is included. Component Value Ref Range TSH 16.790 (H) 0.35 - 5.00 MCU/ML Specimen Performing Laboratory Blood MAIN LAB [address] [place] [address] * FREE T4 (FREE THYROXINE) ONLY (01/09/2018 1:40 PM) Component Value Ref Range T4-Free 0.9 0.6 - 1.6 NG/DL Specimen Performing Laboratory Blood MAIN LAB [address] [place] [address] * CT ABD/PELV WO CONTRAST (01/06/2018 11:43 AM) Specimen Performing Laboratory [facility] RESULTS Impressions 1. 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 2. Mildly comminuted compression fracture of the right L5 vertebral body with progressive height loss since the prior study. Surgical defect or fracture through the coccyx and lower left sacrum appears unchanged. 3. Mildly dilated small large bowel loops throughout the abdomen, likely reflecting ileus. Trace ascites and minimal residual pneumoperitoneum, likely postoperative. 4. Development of a trace right pleural effusion with adjacent atelectasis. 5. 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 Approved by Pardeep Bentley M.D. on 01/06/2018 3:07 PM By my electronic signature, I attest that I have personally reviewed the images for this examination and formulated the interpretations and opinions expressed in this report Finalized by Fareed Bejarano M.D. on 01/06/2018 5:01 PM. Dictated by Pardeep Bentley M.D. on 01/06/2018 1:[address] Abdomen and Pelvis Clinical Indication:Female, 52 years old. Evaluate for fluid collection, hemipelvectomy wound. Technique: Multiple contiguous axial CT images were obtained through the abdomen and pelvis without IV contrast. Post processing coronal and sagittal reconstruction images were made from the axial images. IV contrast: None. Bowel contrast:None Comparison: CT pelvis December 25, [address] abdomen/pelvis November 22, 2017 FINDINGS: Limited evaluation without the use of IV contrast which includes the viscera and vasculature. Lower Thorax: Unchanged subcentimeter nodular opacities in the lung bases bilaterally (series 2, images 5, 6, 13, and 15 for example) which are indeterminate though may reflect nodular scarring or noncalcified granulomas. Previously seen sub-5 mm nodular opacity in the right lower lobe is obscured by atelectasis. Development of a trace right pleural effusion with adjacent atelectasis. Liver and Biliary system: The liver size is normal without focal lesion. The gallbladder and bile ducts are nondistended. Spleen: Unremarkable. Adrenal Glands and Kidneys: The adrenal glands are unremarkable. The kidneys are normal size and contour without nephroureterolithiasis or hydronephrosis. Pancreas and Retroperitoneum: The pancreas is unremarkable. No retroperitoneal lymphadenopathy. Aorta and Major Vessels: The abdominal aorta is normal caliber. Duplicated IVC noted. Right IVC filter is in place below the level of the renal veins. Bowel, Mesentery and Peritoneal space: Enteric tube noted extending to the proximal jejunum. Prior partial colonic resection and right abdomen diverting colostomy formation. Mildly dilated large and small bowel loops throughout the abdomen without transition point. Minimal residual pneumoperitoneum, likely postoperative. Trace ascites. Pelvis: Fibroid uterus. The urinary bladder is decompressed by Shirley catheter with a small amount of nondependent gas noted. No pelvic lymphadenopathy. Abdominal wall and Osseous Structures: Moderate left pelvic and gluteal subcutaneous and intramuscular gas and edema is redemonstrated. Surgical ceci are noted in the left gluteal tissues. No significant change in size of the more focal gas and fluid collections along the inferior anterior (2-89) and superior (2-105) surgical margins with interval increase in gas component. Interval removal of the previously seen surgical drain. 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 Gas and edema extends adjacent to the left sacrum and left L5 transverse process. No new osteolysis or aggressive periosteal reaction. Redemonstration of a vertically oriented surgical defect or fractures of the coccyx and left lower sacral bodies. Moderate mildly comminuted compression fracture of the right L5 vertebral body with increased height loss compared to the prior study. Procedure Note Interface, Radiant Results - 01/06/2018 5:[address] Abdomen and Pelvis Clinical Indication: Female, 52 years old. Evaluate for fluid collection, hemipelvectomy wound. Technique: Multiple contiguous axial CT images were obtained through the abdomen and pelvis without IV contrast. Post processing coronal and sagittal reconstruction images were made from the axial images. IV contrast: None. Bowel contrast: None Comparison: CT pelvis December 25, [address] abdomen/pelvis November 22, 2017 FINDINGS: Limited evaluation without the use of IV contrast which includes the viscera and vasculature. Lower Thorax: Unchanged subcentimeter nodular opacities in the lung bases bilaterally (series 2, images 5, 6, 13, and 15 for example) which are indeterminate though may reflect nodular scarring or noncalcified granulomas. Previously seen sub-5 mm nodular opacity in the right lower lobe is obscured by atelectasis. Development of a trace right pleural effusion with adjacent atelectasis. Liver and Biliary system: The liver size is normal without focal lesion. The gallbladder and bile ducts are nondistended. Spleen: Unremarkable. Adrenal Glands and Kidneys: The adrenal glands are unremarkable. The kidneys are normal size and contour without nephroureterolithiasis or hydronephrosis. Pancreas and Retroperitoneum: The pancreas is unremarkable. No retroperitoneal lymphadenopathy. Aorta and Major Vessels: The abdominal aorta is normal caliber. Duplicated IVC noted. Right IVC filter is in place below the level of the renal veins. Bowel, Mesentery and Peritoneal space: Enteric tube noted extending to the proximal jejunum. Prior partial colonic resection and right abdomen diverting colostomy formation. Mildly dilated large and small bowel loops throughout the abdomen without transition point. Minimal residual pneumoperitoneum, likely postoperative. Trace ascites. Pelvis: Fibroid uterus. The urinary bladder is decompressed by Shirley catheter with a small amount of nondependent gas noted. No pelvic lymphadenopathy. Abdominal wall and Osseous Structures: Moderate left pelvic and gluteal subcutaneous and intramuscular gas and edema is redemonstrated. Surgical ceci are noted in the left gluteal tissues. No significant change in size of the more focal gas and fluid collections along the inferior anterior (2-89) and superior (2-105) surgical margins with interval increase in gas component. Interval removal of the previously seen surgical drain. 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 Gas and edema extends adjacent to the left sacrum and left L5 transverse process. No new osteolysis or aggressive periosteal reaction. Redemonstration of a vertically oriented surgical defect or fractures of the coccyx and left lower sacral bodies. Moderate mildly comminuted compression fracture of the right L5 vertebral body with increased height loss compared to the prior study. IMPRESSION 1. 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 Edema within and about the operative bed has not significantly changed, though associated gas has mildly increased. More focal gas/fluid collections along the anterior-inferior and superior surgical margins have also slightly increased their gaseous component . 2. Mildly comminuted compression fracture of the right L5 vertebral body with progressive height loss since the prior study. Surgical defect or fracture through the coccyx and lower left sacrum appears unchanged. 3. Mildly dilated small large bowel loops throughout the abdomen, likely reflecting ileus. Trace ascites and minimal residual pneumoperitoneum, likely postoperative. 4. Development of a trace right pleural effusion with adjacent atelectasis. 5. 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 Approved by Pardeep Bentley M.D. on 01/06/2018 3:07 PM By my electronic signature, I attest that I have personally reviewed the images for this examination and formulated the interpretations and opinions expressed in this report Finalized by Fareed Bejarano M.D. on 01/06/2018 5:01 PM. Dictated by Pardeep Bentley M.D. on 01/06/2018 1:36 PM. * PHOSPHORUS (01/03/2018 5:10 AM) Only the most recent of 14 results within the time period is included. Component Value Ref Range Phosphorus 2.2 2.0 - 4.0 MG/DL Specimen Performing Laboratory Blood [facility] [address] [place] [address] * MAGNESIUM (01/03/2018 5:10 AM) Only the most recent of 14 results within the time period is included. Component Value Ref Range Magnesium 1.8 1.6 - 2.6 mg/dL Specimen Performing Laboratory [facility] [address] [place] [address] * ECG-SCAN (01/02/2018 7:45 PM) Narrative Ordered by an unspecified provider. * SODIUM-URINE RANDOM (01/02/2018 9:45 AM) Only the most recent of 4 results within the time period is included. Component Value Ref Range Sodium, Random 15 MMOL/L Specimen Performing Laboratory Urine [facility] [address] [place] [address] * CREATININE-URINE RANDOM (01/02/2018 9:45 AM) Component Value Ref Range Creatinine, Random 20 MG/DL Specimen Performing Laboratory Urine [facility] [address] [place] [address] * TROPONIN-I (12/31/2017 4:57 PM) Component Value Ref Range Troponin-I 0.01 0.0 - 0.05 NG/ML Specimen Performing Laboratory Blood [facility] [address] [place] [address] * TRANSFUSE RBC'S BLEEDING PT OR EXCHANGE TRANSFUSION (12/31/2017 1:15 PM) Only the most recent of 5 results within the time period is included. Specimen Performing Laboratory Blood * SURGICAL PATHOLOGY (12/30/2017 11:56 AM) Only the most recent of 2 results within the time period is included. Component Value Ref Range PATHOLOGY REPORT [email or web address] Department of Pathology and Laboratory Medicine [address] [place] [address] Surgical Pathology Office:[phone]:[phone] SURGICAL PATHOLOGY REPORT NAME: ELICEO [facility] SURG PATH #: [id number] MR #: [id number] SPECIMEN CLASS: [facility] BILLING #: [id number] ALT ID #:LOCATION: [id number] DATE OF PROCEDURE: 12/30/2017 AGE:52 SEX: F DATE RECEIVED: 12/30/2017 : 1965TIME RECEIVED:11:56 PHYSICIAN: AIMEE MCCOLLUM DO DATE OF REPORT: 12/31/2017 COPY TO:DATE OF PRINTIN12/31/2017 ################################################## ###################### Final Diagnosis: A. Colonic and fibroadipose tissue staple line, excision: Staple line with adjacent tissue reaction. There is no evidence of malignancy. Attestation: By this signature, I attest that I have personally formulated the final interpretation expressed in this report and that the above diagnosis is based upon my examination of the slides and/or other material indicated in this report. +++ +++ ksw/12/30/2017 ################################################## ###################### Material Received: A: staple line History: 52-year-old female with a history of pelvic mass. Gross Description: A. Received in formalin, labeled patient's name and "staple line" and regular, unoriented portion of soft tissue containing metallic ceci measuring 6.4 cm in length. The ceci are removed and the specimen is entirely submitted in cassettes A1-A3.([facility]) [facility]/12/30/2017 Specimen Performing Laboratory [facility] RESULTS * TYPE & SCREEN (NOT CROSSMATCH ELIGIBLE) (12/29/2017 4:51 AM) Component Value Ref Range ABO/RH(D) A POS Antibody Screen NEG Blood Component Type RED CELL GROUP Specimen Performing Laboratory Blood, venous - Blood [facility] [address] [place] [address] * OSMOLALITY-URINE RANDOM (12/28/2017 5:18 PM) Only the most recent of 3 results within the time period is included. Component Value Ref Range Osmolality-Urine 366 50 - 1,400 MOS/KG Specimen Performing Laboratory Urine [facility] [address] [place] [address] * PATHOLOGY INTEROPERATIVE REPORT SCAN (12/28/2017 9:36 AM) Only the most recent of 4 results within the time period is included. Narrative Ordered by an unspecified provider. * OSMOLALITY (12/28/2017 4:00 AM) Only the most recent of 2 results within the time period is included. Component Value Ref Range Osmolality 283 280 - 307 MOSMOL/KG Specimen Performing Laboratory [facility] [address] [place] [address] * HEMOGLOBIN A1C (12/28/2017 4:00 AM) Component Value Ref Range Hemoglobin A1C 6.5 (H) 4.0 - 6.0 % Comment: The ADA recommends that most patients with type 1 and type 2 diabetes maintain an A1c level <7%. 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 There is a surgical defect or fracture through the coccyx and lower left sacral bodies. 2.Ill-defined fluid and air along the anterior margin of the surgical site away from the drain tip. However, no discrete drainable fluid collection is noted. Finalized by Sahara Clarke M.D. on 12/25/2017 9:44 AM. Dictated by Sahara Clarke M.D. on 12/25/2017 9:[address] PELVIS Clinical Indication:Female, 52 years old. Left pelvic chondrosarcoma status post hemipelvectomy. Evaluate for fluid collection in the pelvis. Technique:Multiple contiguous axial images were obtained through the pelvis without IV contrast material. Post processing coronal and sagittal reconstruction images were made from the axial images. IV contrast: None. Bowel contrast:None. Comparison: Outside CT abdomen/pelvis 11/22/2017, outside MRI pelvis 11/25/2017. 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 There is a surgical defect or fracture through the coccyx and lower left sacral bodies. There is a moderate amount of subcutaneous edema and subcutaneous gas in the soft tissues. There are surgical ceci in the left gluteal subcutaneous soft tissues. A surgical drain is present. There is no collection at the drain tip. There is ill -defined fluid and air along the anterior margin of the surgical site, spanning 8.1 cm (series 2 image 46). However, no discrete drainable fluid collection is noted. There is no bowel obstruction. A fibroid uterus is present. The bladder is decompressed around a Shirley catheter. There is mild lumbar spondylosis. Procedure Note Interface, Radiant Results - 12/25/2017 9:[address] PELVIS Clinical Indication: Female, 52 years old. Left pelvic chondrosarcoma status post hemipelvectomy. Evaluate for fluid collection in the pelvis. Technique: Multiple contiguous axial images were obtained through the pelvis without IV contrast material. Post processing coronal and sagittal reconstruction images were made from the axial images. IV contrast: None. Bowel contrast: None. Comparison: Outside CT abdomen/pelvis 11/22/2017, outside MRI pelvis 11/25/2017. 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 There is a surgical defect or fracture through the coccyx and lower left sacral bodies. There is a moderate amount of subcutaneous edema and subcutaneous gas in the soft tissues. There are surgical ceci in the left gluteal subcutaneous soft tissues. A surgical drain is present. There is no collection at the drain tip. There is ill -defined fluid and air along the anterior margin of the surgical site, spanning 8.1 cm (series 2 image 46). However, no discrete drainable fluid collection is noted. There is no bowel obstruction. A fibroid uterus is present. The bladder is decompressed around a Shirley catheter. There is mild lumbar spondylosis. IMPRESSION 1. 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 There is a surgical defect or fracture through the coccyx and lower left sacral bodies. 2. Ill-defined fluid and air along the anterior margin of the surgical site away from the drain tip. However, no discrete drainable fluid collection is noted. Finalized by Sahara Clarke M.D. on 12/25/2017 9:44 AM. Dictated by Sahara Clarke M.D. on 12/25/2017 9:30 AM. * DELIVER & TRANSFUSE RED BLOOD CELLS (INTRAOP ONLY) (12/24/2017 6:16 PM) Only the most recent of 5 results within the time period is included. Specimen Performing Laboratory Blood * C DIFFICILE BY PCR (12/23/2017 10:14 AM) Only the most recent of 2 results within the time period is included. Component Value Ref Range Battery Name C DIFFICILE PCR Specimen Description FECES Special Requests NONE C. Difficile Toxin B PCR Repeat testing not indicated on specimen negative by PCR within 7 days notified MAURO/Gaye 12.23.17/ Report Status FINAL 12/23/2017 Specimen Performing Laboratory Fe[facility] [address] [place] [address] * ECG-SCAN (12/22/2017 8:10 AM) Narrative Ordered by an unspecified provider. * ECG-SCAN (12/22/2017 8:10 AM) Narrative Ordered by an unspecified provider. * CORTISOL,RANDOM (12/21/2017 4:38 AM) Component Value Ref Range Cortisol, Random 15.5 5.0 - 20.0 MCG/DL Specimen Performing Laboratory [facility] [address] [place] [address] * URIC ACID (12/21/2017 4:38 AM) Component Value Ref Range Uric Acid 3.3 2.0 - 7.0 MG/DL Specimen Performing Laboratory [facility] [address] [place] [address] * IONIZED CALCIUM (12/19/2017 3:05 AM) Only the most recent of 7 results within the time period is included. Component Value Ref Range Ionized Calcium 1.07 1.0 - 1.3 MMOL/L Specimen Performing Laboratory [facility] [address] [place] [address] * BLOOD GASES, ARTERIAL (12/16/2017 3:27 AM) Only the most recent of 10 results within the time period is included. Component Value Ref Range pH-Arterial 7.33 (L) 7.35 - 7.45 pCO2-Arterial 41 35 - 45 MMHG pO2-Arterial 84 80 - 100 MMHG Base Deficit-Arterial 4.2 MMOL/L O2 Sat-Arterial 97.0 95 - 99 % Bmfjxitichk-JIT-Dep 20.9 (L) 21 - 28 MMOL/L Specimen Performing Laboratory Blood, arterial - Blood [facility] [address] [place] [address] * TEG WITH KAOLIN (12/15/2017 10:00 PM) Only the most recent of 2 results within the time period is included. Component Value Ref Range MA Kaolin 72.6 (H) 50.0 - 70.0 MM R Kaolin 4.2 3.0 - 9.0 MIN RK Kaolin 5.5 4.0 - 12.0 MIN K Kaolin 1.3 1.0 - 3.0 MIN Angle Kaolin 69.0 55 - 75 DEG Lysis30 0.4 0.0 - 8.0 % Specimen Performing Laboratory Blood [facility] * ANESTHESIA EPIDURAL BLOCK (12/15/2017 12:50 PM) Aimee Mello MD 12/15/20173:34 PM Anesthesia Procedure: Epidural Block EPIDURAL BLOCK Date/Time: 12/15/2017 12:20 PM Patient location: ICU Reason for block: post-op pain management and procedure for pain Preprocedure checklist performed: 2 patient identifiers, risks & benefits discussed, patient evaluated, timeout performed, consent obtained, patient being monitored, existing labs reviewed, no anticoagulant within risk period and sterile drape Sterile technique: - Proper hand washing - Cap, mask - Sterile gloves - Skin prep for antisepsis Epidural Procedure Patient position: right lateral decubitus Prep: ChloraPrep Monitoring: BP, EKG and continuous pulse ox Approach: midline Location: lumbar Level/Interspace: L2-3 Injection technique: JEAN-PAUL saline Procedures: landmark technique Local infiltration: 1% lidocaine injected locally Number of attempts: 1 Needle/epidural catheter: Needle type: Tuohy Needle gauge: 18 G Needle length: 3.5 in Needle insertion depth: 8 cm Catheter type: multi orifice Catheter size: 20 G Catheter at skin depth: 14 cm Procedure Outcome Events: negative test dose, no paresthesia and negative aspiration test Patient tolerance of procedure: patient tolerated the procedure well with no immediate complications Additional notes: ATTESTATION I was present during the entire procedure performed by a resident Staff name:Aimee Aiken MD Date:12/15/2017 Refer to nursing documentation for vitals and monitoring data during procedure. Performed by: GAGAN MCKENNA Authorized by: AIMEE AIKEN Procedure Note Aimee Aiken MD - 12/15/2017 12:50 PM CDT Anesthesia Procedure: Epidural Block EPIDURAL BLOCK Date/Time: 12/15/2017 12:20 PM Patient location: ICU Reason for block: post-op pain management and procedure for pain Preprocedure checklist performed: 2 patient identifiers, risks & benefits discussed, patient evaluated, timeout performed, consent obtained, patient being monitored, existing labs reviewed, no anticoagulant within risk period and sterile drape Sterile technique: - Proper hand washing - Cap, mask - Sterile gloves - Skin prep for antisepsis Epidural Procedure Patient position: right lateral decubitus Prep: ChloraPrep Monitoring: BP, EKG and continuous pulse ox Approach: midline Location: lumbar Level/Interspace: L2-3 Injection technique: JEAN-PAUL saline Procedures: landmark technique Local infiltration: 1% lidocaine injected locally Number of attempts: 1 Needle/epidural catheter: Needle type: Tuohy Needle gauge: 18 G Needle length: 3.5 in Needle insertion depth: 8 cm Catheter type: multi orifice Catheter size: 20 G Catheter at skin depth: 14 cm Procedure Outcome Events: negative test dose, no paresthesia and negative aspiration test Patient tolerance of procedure: patient tolerated the procedure well with no immediate complications Additional notes: ATTESTATION I was present during the entire procedure performed by a resident Staff name: Aimee Aiken MD Date: 12/15/2017 Refer to nursing documentation for vitals and monitoring data during procedure. Performed by: GAGAN MCKENNA Authorized by: AIMEE AIKEN * PTT (APTT) (12/14/2017 6:42 PM) Only the most recent of 4 results within the time period is included. Component Value Ref Range APTT 23.7 21.0 - 39.0 SEC Specimen Performing Laboratory Blood [facility] [address] [place] [address] * GLUCOSE,BG (12/14/2017 4:51 PM) Only the most recent of 5 results within the time period is included. Component Value Ref Range Glucose 263 (H) 70 - 100 MG/DL Specimen Performing Laboratory [facility] [address] [place] [address] * SODIUM,BG (12/14/2017 4:51 PM) Only the most recent of 5 results within the time period is included. Component Value Ref Range Sodium 139 137 - 147 MMOL/L Specimen Performing Laboratory [facility] [address] [place] [address] * POTASSIUM, BG (12/14/2017 4:51 PM) Only the most recent of 5 results within the time period is included. Component Value Ref Range Potassium 4.9 3.5 - 5.1 MMOL/L Specimen Performing Laboratory [facility] [address] [place] [address] * IONIZED CALCIUM,BG (12/14/2017 4:51 PM) Only the most recent of 5 results within the time period is included. Component Value Ref Range Ionized Calcium 1.12 1.0 - 1.3 MMOL/L Specimen Performing Laboratory [facility] [address] [place] [address] * HEMOGLOBIN & HEMATOCRIT, BG (12/14/2017 4:51 PM) Only the most recent of 5 results within the time period is included. Component Value Ref Range Hemoglobin BG 12.0 12.0 - 15.0 GM/DL Hematocrit BG 37.1 36 - 45 % Specimen Performing Laboratory Blood [facility] [address] [place] [address] * ANESTHESIA ARTERIAL LINE INSERTION (12/14/2017 1:40 PM) Narrative Craig Uriostegui MD 12/14/20178:41 AM Anesthesia Procedure: Arterial Line Placement A-LINE INSERTION Date/Time: 12/14/2017 8:35 AM Patient location: OR Indications: frequent labs and hemodynamic monitoring Preprocedure checklist performed: 2 patient identifiers, risks & benefits discussed, patient evaluated, timeout performed, consent obtained, patient being monitored and sterile drape Sterile technique: - Proper hand washing - Cap, mask - Sterile gloves - Skin prep for antisepsis Arterial Line Procedure Patient sedated: yes (see MAR) Sedation type: general; Artery prepped with chlorhexidine; skin prep agent completely dried prior to procedure. Location: radial artery Laterality: left Technique: palpation and anatomical landmarks Needle gauge: 20 G Number of attempts: 2 Procedure Outcome Catheter secured with adhesive dressing applied Events: no complications noted during insertion and skin intact, warm, and dry Observation: pt tolerated well Performed by: FARHAT BRENNAN Authorized by: FARHAT BRENNAN * ECG-SCAN (12/07/2017 1:24 PM) Narrative Ordered by an unspecified provider. * ECG-SCAN (12/04/2017 5:10 PM) Narrative Ordered by an unspecified provider. from Last 3 Months
--- OUTSIDE RECORDS SUMMARY | 2018-03-06 21:39 | XMS REPORT | Encounter Summary ---
Author Author [facility] Organization [facility] Address Unknown Phone Unavailable Care Team Providers Care Ui Software Developer Name Role Phone Della Cuellar MD PCP Encounter Details Date Type Department Care Team Description 03/04/2018 Outpt. [facility] Howard Encarnacion MD [facility] Physicians - Internal [address] [facility] Therapy Medicine [place] [address] [place] [address] [address] [facility] MED [phone] [place] [address] Social History Tobacco Use Types [...] as of this encounter Progress Notes * Kayla Burgess, SANJAY - 03/04/2018 10:11 AM CDT ACTIVE OPAT: 03/03/18 Hosp D/C Date: 03/02/18 ID Physician: Shashank Next f/u: pt should be coming back ~ 2 wks for surgery with plastics. Dr DENNY to see her as inpt then for f/u. (no surgery appt noted in O2 at this time) Plastics appt scheduled 03/17 at 2pm Diagnosis: Surgical Wound Infection from Left Hemipelvectomy. Abx: Vancomycin 1.5g IV QD through after surgery. (infusing at 8pm) Goal 10-15 Start date: 02/26/18 Stop date: ? Abx: Invanz 1g IV QD through after surgery. Start: 02/26/18 Labs: Wkly CBC w/Diff, CMP and Vanco Trough to start 03/05/18 and then Q Wednesday after that on 03/14/18. Line: JORY PALOMINO Picc [facility]: / Lee Ann angelica confirmed Iv abx orders. HH/SNF: [facility] HH: / Keiko BOB RN and Beata confirmed lab orders and picc care. in this encounter Plan of Treatment Date Type Specialty Care Team Description 03/01/2018 Procedure Pass Cardiothoracic Surgery as of this encounter Visit Diagnoses Not on filein this encounter
[2018-03-06] MEDS ORDERED: LACT1CAP62 PO (21:50)
[2018-03-06] MEDS ORDERED: VANC1.5P16 IV (21:50)
[2018-03-06] MEDS ORDERED: GABA-488 PO (21:50)
[2018-03-06] MEDS ORDERED: SENN1TAB93 PO (21:50)
[2018-03-06] MEDS ORDERED: OXYC15TA79 PO (21:50)
[2018-03-06] MEDS ORDERED: NORT75CA PO (21:50)
[2018-03-06] MEDS ORDERED: ERTA1VIA IJ (21:50)
[2018-03-06] MEDS ORDERED: COLL2POW MC (21:50)
[2018-03-06] MEDS ORDERED: OXYC10TA85 PO (21:50)
[2018-03-06] MEDS ORDERED: ONDA4TAB11 PO (21:50)
[2018-03-06] MEDS ORDERED: PANT40TA3 PO (21:50)
[2018-03-06] MEDS ORDERED: FERR325T18 PO (21:50)
--- OUTSIDE RECORDS SUMMARY | 2018-03-06 21:55 | XMS REPORT | Encounter Summary ---
Author Author [facility] Organization [facility] Address Unknown Phone Unavailable Care Team Providers Care Deputy Felony Clerk Name Role Phone Della Cuellar MD PCP Reason for Visit * Auth/Cert Status Reason Specialty Diagnoses / Referred By Referred To Procedures Contact Contact Diagnoses Acquired absence of left hip joint Encounter Details Date Type Department Care Team Description 01/14/2018 Hospital R AC[facility] REHAB UN[facility] Ruth Allne MD Left hip amputation - Encounter [address] F status 03/02/2018 [place] [address] Arnaldo hayes MD [phone] [place], [place] [id number] Social History Tobacco Use Types Packs/Day Years Used Date Never Smoker Smokeless Tobacco: Never Used Alcohol Use Drinks/Week oz/Week Comments No Sex Assigned at Date Recorded Not on file as of this encounter Last Filed Vital Signs Vital Sign Reading Time Taken Blood Pressure 140/73 03/02/2018 2:45 PM CDT Pulse 120 03/02/2018 2:45 PM CDT Temperature 36.9 C (98.5 F) 03/02/2018 2:45 PM CDT Respiratory Rate - - Oxygen Saturation 96% 03/02/2018 2:45 PM CDT Inhaled Oxygen - - Concentration Weight 97.9 kg (215 lb 12.9 oz) 03/02/2018 5:00 AM CDT Height 160 cm (5' 3") 01/14/2018 4:15 PM CDT Body Mass Index 38.23 03/02/2018 5:00 AM CDT in this encounter Functional Status Functional Status Response [...] impairment: No 03/02/2018 as of this encounter Discharge Summaries * Ruth Allen MD - 03/02/2018 4:55 PM CDT Formatting of this note may be different from the original. ATTESTATION: I have reviewed the discharge summary and agree with the resident's documentation. The patient was seen today and remained stable for discharge. The patient discharged home with assistance from family. Follow up instructions including appointments were provided and prescriptions were provided. Patient understands signs to look out for that would require to call a doctor(s) and/or call 911. 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 Patient met overall goal of mod I with ultralight wheelchair, RW, slideboard, hospital bed, ramp at household level by time of rehab discharge. Discharge home today with PT/OT/RN. Plan to return to Plastics clinic in ~2- 3 weeks for planned next surgical debridement of wound. Patient knows to follow up with Ortho, PMR, CTS and Plastics. Patient knows not to return to work or driving until cleared by outpatient physicians. Patient knows NWB LLE, ostomy and wound precautions. Family training was completed for mobility, ADLs, medications, ostomy, wound care. Staff name: Ruth Allen MD Physician Discharge Summary Name: Beata Kaiser Date Of : 1965 Age: 52 years Admit date: 01/14/2018 Discharge date: 03/02/2018 Attending Physician: Service: Rehab Medicine Physician Summary completed by: Ravi Pride DO Reason for hospitalization: Hemipelvectomy Significant PMH: Past Medical History: Diagnosis Date Anxiety Back pain Depression DM (diabetes mellitus) (HCC) 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 Allergies: Cephalexin Admission Physical Exam notable for: Gen: Awake, alert, No Acute Distress HEENT: NCAT, PERRL, EOMI, MMM Heart: Regular Rate & Rhythm, no m/g/r Lungs: Clear to auscultation bilaterally, no w/r/r Abdomen: Soft, non-tender, non-distended, +BS : +Melchor Skin: warm, dry Ext: lle amputation with dressing in place, mild rle edema MS: Root Right Left Shoulder Abduction C5 5 5 Elbow Flexion C5 5 5 Elbow Extension C7 5 5 Wrist Extension C6 5 5 Finger Flexion C8 5 5 Finger Abduction T1 5 5 Hip Flexion L2 3 - Knee Flexion L5/S1 4 - Knee Extension L3 4 - Dorsiflexion L4 4 - Plantarflexion S1 4 - Neuro: Cranial Nerves Cranial Nerves 2-12 are grossly intact Babinski Plantar Reflex is Downgoing on right Ortiz Normal Upper Extremity Sensation Intact to light touch bilaterally Lower Extremity Sensation Intact to light touch bilaterally Clonus Negative on right Proprioception Intact Bilaterally Memory/Cognition/Speech Oriented x 3. Speech fluent and clear. Conversation appropriate. Memory and cognition grossly intact. Admission Lab/Radiology studies notable for: Basic Metabolic Profile Lab Results Component Value Date/Time NA 137 01/14/2018 04:40 AM K 4.3 01/14/2018 04:40 AM CA 8.3 (L) 01/14/2018 04:40 AM CL 101 01/14/2018 04:40 AM CO2 28 01/14/2018 04:40 AM Lab Results Component Value Date/Time BUN 12 01/14/2018 04:40 AM CR 0.61 01/14/2018 04:40 AM GLU 237 (H) 01/14/2018 04:40 AM CBC w/Diff Lab Results Component Value Date/Time WBC 10.9 01/14/2018 04:40 AM RBC 2.73 (L) 01/14/2018 04:40 AM HGB 7.8 (L) 01/14/2018 04:40 AM HCT 23.1 (L) 01/14/2018 04:40 AM MCV 84.6 01/14/2018 04:40 AM MCH 28.7 01/14/2018 04:40 AM RDW 17.1 (H) 01/14/2018 04:40 AM PLTCT 641 (H) 01/14/2018 04:40 AM MPV 6.2 (L) 01/14/2018 04:40 AM Lab Results Component Value Date/Time NEUT 64 01/10/2018 03:30 AM ANC 5.80 01/10/2018 03:30 AM LYMA 15 (L) 01/10/2018 03:30 AM ALC 1.40 01/10/2018 03:30 AM CALVIN 12 01/10/2018 03:30 AM AMC 1.10 (H) 01/10/2018 03:30 AM EOSA 9 (H) 01/10/2018 03:30 AM AEC 0.80 (H) 01/10/2018 03:30 AM BASA 0 01/10/2018 03:30 AM ABC 0.00 01/10/2018 03:30 AM Brief Hospital Course: The patient was admitted and the following issues were addressed during this hospitalization: (with pertinent details). Beata Kaiser is a 52 yo F who presented to [facility] on 12/13/17 for scheduled left hemipelvectomy for chondrosarcoma. Pt became septic with GBS, ID consulted, being treated with ertapenem. Diverting colostomy was placed on 12/30 due to stool saturating the wound. Pt was admitted to [facility] 01/14/18. Orthopedic surgery continued to follow pt and they recommended plastic surgery consult for possible debridement of her surgical wounds. Plastic surgery didn't no recommend OR for debridement during her Rehab course but she has follow up Plastic surgery ~2 weeks from discharge for reevaluation. Pt had a corpak, melchor , and wound vac which were all eventually discontinued. Pt was on and off IV abx throughout her rehab course, ID consulted and making recommendations. Based on wound cx's pt was discharged on IV abx until her follow up appointment with plastic surgery. Cardiothoracic surgery has f/u and CT chest Jun 02 for pulmonary nodules seen on CT chest during acute hospitalization. Pt has follow up with April 14, and Rehab f/u Apr 22. Pt met goal of Mod I with WC and slideboard. Pt was d/c homt 03/02/18 with [facility] and home infusion. Evaluation FIMS Current FIMS Eating FIM: 1 - Total assistance, tube feeding for nutrition and/or hydration Grooming FIM: 3 - Moderate assistance, patient performs 50-74% or more of grooming/bathing/dressing/toileting tasks Bathing FIM: 3 - Moderate assistance, patient performs 50-74% or more of grooming/bathing/dressing/toileting tasks Dressing - Upper Body FIM: 0 - Activity did not occur - Other (comment) Dressing - Lower Body FIM: 2 - Maximal assistance, patient performs 25-49% of grooming/bathing/dressing/toileting tasks Toileting FIM: 1 - Total assistance, patient performs less than 25% of grooming/ bathing/dressing/toileting tasks Bladder FIM: 1 - Total assistance, patient expends less than 25% effort ( complete % of assist, if change diapers, total assist) Bowel FIM: 1 - Total assistance, patient expends less than 25% effort (complete % of assist, if change diapers, total assist) Transfers FIM: 1 - Total assistance, mechanical lift Toilet Transfers FIM: 0 - Activity did not occur - Other (comments) (colostomy/ melchor) Shower Transfers FIM: 0 - Activity did not occur - Other (comments) (sponge bath only) Gait: 0 - Activity did not occur - Safety Wheelchair FIM: 2 - Maximal assistance, patient expends 25-49% effort, greater than or equal to 50-149 feet Stairs FIM: 0 - Activity did not occur - Safety Comprehension FIM: 5 - Standby prompting. Understands abstract and/or basic information greater than 90% of the time, prompting less than 10% Expression FIM: 5 - Standy prompting - Able to express abstract and/or basic information >90% of the time, prompting <10% Social Interaction FIM: 6 - Modified independence - Able to interact in most situations and no prompting required Problem Solving FIM: 5 - Standby prompting - Able to recognize problems, make appropriate decisions, initiates and carries out a sequence of steps to solve routine problems >90% of the time, prompting <10% Memory FIM: 6 - Modified independence - Able to recognize people frequently encountered, remembers daily routines, responds to requests of others with only mild difficulty, no prompting Eating FIM: 7 - Complete independence Grooming FIM: 7 - Complete independence Bathing FIM: 5 - Set up Dressing - Upper Body FIM: 4 - Minimal contact assistance, patient performs 75% or more of grooming/bathing/dressing/toileting tasks Dressing - Lower Body FIM: 1 - Total assistance, patient performs less than 25% of grooming/bathing/dressing/toileting tasks Toileting FIM: 1 - Total assistance, requires 2 staff to assist Bladder FIM: 1 - Total assistance, patient expends less than 25% effort ( complete % of assist, if change diapers, total assist) Bowel FIM: 6 - Modified independence - Medication Transfers FIM: 3 - Moderate assistance, patient performs 50-74% of transferring tasks (lifting required) Toilet Transfers FIM: 3 - Moderate assistance, patient performs 50-74% of transferring tasks (lifting required) Shower Transfers FIM: 0 - Activity did not occur - Other (comments) (sponge bath only) Gait: 1 - Toal assistance, two or more people, < 50 feet Wheelchair FIM: 5 - Stand by assistance, greater than or equal to 150 feet Stairs FIM: 1 - Total assistance, patient expends less than 25% effort, less than 4 stairs Comprehension FIM: 3 - Moderate prompting. Understands directions/conversation about basic daily needs 50-74% Expression FIM: 4 - Minimal prompting - Expresses directions/conversation about basic daily needs 75-90% Social Interaction FIM: 6 - Modified independence - Able to interact in most situations and no prompting required Problem Solving FIM: 3 - Moderate prompting - Able to solve routine problems 50- 74%. Needs direction less than half of the time to initiate, plan or complete daily activities Memory FIM: 3 - Moderate promting - Able to recognize people frequently encountered, remembers daily routines, responds to requests of others 50-74% of the time, needs prompting less than half of the time Physical Therapy Current Recommendations/Plan/Goals Plan PT Plan: Balance/vestibular training, Bed mobility training, Transfer training, Therapeutic exercise, Stair training, Wheelchair mobility, Family / caregiver training, Gait training Plan Frequency: Consistent with Rehab Plan of Care Comments: Wheelchair evaluation tomorrow. Finalize any family training in preparation for possible d/c to home 03/02. Recommendations PT Discharge Recommendations: Home with Assistance, Home Health Setting Equipment Recommendations: Wheelchair - Manual, Wheelchair cushion, Walker - Roller, Sliding board, Hospital bed Comments: Ramp for home entry. Expected Discharge Date: 03/02/18 Weekly Goals Weekly Bed Mobility Goals: Patient will complete rolling with, Patient will perform sit to supine with, Patient will perform supine to sit with Patient will perform rolling with: Minimum assistance, Achieved Patient will perform sit to supine with: Modified independent, Adequate for discharge Patient will perform supine to sit with: Modified independent, Adequate for discharge Weekly Transfer Goals: Patient will complete sit to stand transfer with, Patient will complete stand to sit transfer with Patient will complete sit to stand transfer with: Minimum assistance, Adequate for discharge Patient will complete stand to sit transfer with: Minimum assistance, Adequate for discharge Patient will complete stand pivot transfer with: Moderate assistance, Adequate for discharge Patient will complete sliding board transfer with: Stand by assistance, Achieved Patient will complete squat pivot transfer with: Maximum assistance, Achieved Weekly Wheelchair Goals: Patient will propel manual wheelchair on level surfaces with, Patient will propel manual wheelchair up and down ramp with Patient will propel manual wheelchair up and down ramp with: Stand by assistance , Achieved Patient will propel manual wheelchair on level surfaces with: Supervision, Achieved Goal(s) for the Stay Patient will perform: household mobility, at wheelchair level, Modified independent, Adequate for discharge Occupational Therapy Current Recommendations/Plan/Goals Recommendations Expected Discharge Date: 03/02/18 Recommendations Expected Discharge Date: 03/02/18 ADL Goals: Bathing, Dressing UE, Dressing LE Goals for the stay Pt will perform basic care and transfer with: Modified independence, Wheelchair level Condition at Discharge: Stable Discharge Diagnoses: Hospital Problems Active Problems * (Principal)Left hip amputation status Chondrosarcoma (HCC) Acute blood loss as cause of postoperative anemia Depression Anxiety DM (diabetes mellitus) (HCC) 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 Chronic pain Post-op pain Bacteremia Amputated left leg (HCC) Candiduria Surgical Procedures: None Significant Diagnostic Studies and Procedures: noted in brief hospital course Consults: ID, Orthopedics and plastic surgery, hyperbaric oxygen , Endocrinology Patient Disposition: Home Patient instructions/medications: Activity as Tolerated It is important to keep increasing your activity level after you leave the hospital. Moving around can help prevent blood clots, lung infection (pneumonia ) and other problems. Gradually increasing the number of times you are up moving around will help you return to your normal activity level more quickly. Continue to increase the number of times you are up to the chair and walking daily to return to your normal activity level. Begin to work toward your normal activity level at discharge Report These Signs and Symptoms Please contact your doctor if you have any of the following symptoms: temperature higher than 100 degrees F, uncontrolled pain, persistent nausea and/ or vomiting, difficulty breathing, chest pain, severe abdominal pain or headache Questions About Your Stay For questions or concerns regarding your hospital stay. Call [phone] Discharging attending physician: RUTH ALLEN [[id number]] Diabetic Diet You should eat between 1600 and 2000 calories per day. This is equal to 60g ( grams) of carbohydrates per meal, and 30g of carbohydrates for a bedtime snack. If you have questions about your diet after you go home, you can call a dietitian at [phone]. Current Discharge Medication List START taking these medications Details ferrous sulfate (FEOSOL, FEROSUL) 325 mg (65 mg iron) tablet Take 1 tablet by mouth three times daily with meals. Take on an empty stomach at least 1 hour before or 2 hours after food. Qty: 90 tablet, Refills: 3 PRESCRIPTION TYPE: OTC metFORMIN (GLUCOPHAGE) 1,000 mg tablet Take 1 tablet by mouth twice daily with meals. Qty: 60 tablet, Refills: 1 PRESCRIPTION TYPE: Normal This prescription was faxed to the pharmacy Pharmacy: [facility] ([facility]) (Ph #: [phone] ) ondansetron (ZOFRAN) 4 mg tablet Take 1 tablet by mouth every 6 hours as needed. Qty: 30 tablet, Refills: 0 PRESCRIPTION TYPE: Normal This prescription was faxed to the pharmacy Pharmacy: [facility] ([facility]) (Ph #: [phone] ) sitaGLIPtin (JANUVIA) 100 mg tab tablet Take 1 tablet by mouth daily. Qty: 30 tablet, Refills: 1 PRESCRIPTION TYPE: Normal This prescription was faxed to the pharmacy Pharmacy: [facility] ([facility]) (Ph #: [phone] ) sodium hypochlorite (DAKIN'S 1/2 STRENGTH) 0.25 % topical solution Apply topically to affected area as needed. Qty: 946 mL, Refills: 0 PRESCRIPTION TYPE: Normal This prescription was faxed to the pharmacy Pharmacy: [facility] ([facility]) (Ph #: [phone] ) vancomycin (VANCOCIN) 1,500 mg in dextrose 5% (D5W) 300 mL IVPB Administer 1, 500 mg through vein every 24 hours. Continue until surgery. PRESCRIPTION TYPE: No Print CONTINUE these medications which have been CHANGED or REFILLED Details acetaminophen (TYLENOL) 325 mg tablet Take 2 tablets by mouth every 6 hours as needed. Refills: 0 PRESCRIPTION TYPE: OTC buPROPion (WELLBUTRIN) 100 mg tablet Take 1 tablet by mouth three times daily. Qty: 90 tablet, Refills: 1 PRESCRIPTION TYPE: Normal This prescription was faxed to the pharmacy Pharmacy: [facility] ([facility]) (Ph #: [phone] ) collagenase (SANTYL) 250 unit/g topical ointment Apply to left lower abdominal wound. Do not apply over incision. See wound care instructions Qty: 90 g, Refills: 1 PRESCRIPTION TYPE: Normal This prescription was faxed to the pharmacy Pharmacy: [facility] ([facility]) (Ph #: [phone] ) ertapenem (INVANZ) 1 g/10 mL IVP Administer 10 mL through vein every 24 hours. Continue daily until surgery Qty: 1 each PRESCRIPTION TYPE: No Print gabapentin (NEURONTIN) 300 mg capsule Take 2 capsules by mouth every 6 hours. Qty: 240 capsule, Refills: 1 PRESCRIPTION TYPE: Normal This prescription was faxed to the pharmacy Pharmacy: [facility] ([facility]) (Ph #: [phone] ) levothyroxine (SYNTHROID) 200 mcg tablet Take 1 tablet by mouth daily before breakfast. Qty: 30 tablet, Refills: 1 PRESCRIPTION TYPE: Normal This prescription was faxed to the pharmacy Pharmacy: [facility] ([facility]) (Ph #: [phone] ) nortriptyline (PAMELOR) 75 mg capsule Take 1 capsule by mouth at bedtime daily. Qty: 30 capsule, Refills: 1 PRESCRIPTION TYPE: Normal This prescription was faxed to the pharmacy Pharmacy: [facility] ([facility]) (Ph #: [phone] ) oxyCODONE (ROXICODONE, OXY-IR) 15 mg tablet Take 1 tablet by mouth every 4 hours as needed Earliest Fill Date: 03/02/18 Qty: 42 tablet, Refills: 0 PRESCRIPTION TYPE: Print oxyCODONE SR (OXYCONTIN) 10 mg ER tablet Take 1 tablet by mouth twice daily Earliest Fill Date: 03/02/18 Qty: 30 tablet, Refills: 0 PRESCRIPTION TYPE: Print pantoprazole DR (PROTONIX) 40 mg tablet Take 1 tablet by mouth daily. Qty: 30 tablet, Refills: 1 PRESCRIPTION TYPE: Normal This prescription was faxed to the pharmacy Pharmacy: [facility] ([facility]) (Ph #: [phone] ) CONTINUE these medications which have NOT CHANGED Details aspirin EC 81 mg tablet Take 81 mg by mouth daily. Take with food. PRESCRIPTION TYPE: Historical Med busPIRone (BUSPAR) 30 mg tablet Take 30 mg by mouth twice daily. PRESCRIPTION TYPE: Historical Med lactobacillus rhamnosus GG (CULTURELLE) 15 billion cell cpSP capsule Take 1 capsule by mouth as directed twice daily with meals. Qty: 90 capsule, Refills: 3 PRESCRIPTION TYPE: Print lovastatin(+) (MEVACOR) 40 mg tablet Take 40 mg by mouth at bedtime daily. PRESCRIPTION TYPE: Historical Med rivaroxaban (XARELTO) 20 mg tablet Take 1 tablet by mouth daily with breakfast. Qty: 90 tablet, Refills: 0 PRESCRIPTION TYPE: Normal senna/docusate (SENOKOT-S) 8.6/50 mg tablet Take 1 tablet by mouth twice daily. Qty: 60 tablet, Refills: 0 PRESCRIPTION TYPE: Normal The following medications were removed from your list. This list includes medications discontinued this stay and those removed from your prior med list in our system alum/mag hydroxide/simeth (MYLANTA, MAALOX PLUS) 200/200/20 mg/5 mL susp oral suspension diazePAM (VALIUM) 5 mg tablet HYDROmorphone injection (DILAUDID) 2 mg/mL syrg insulin aspart U-100 (NOVOLOG FLEXPEN) 100 unit/mL injection PEN insulin glargine (LANTUS SOLOSTAR, BASAGLAR) 100 unit/mL (3 mL) injection PEN insulin NPH (HUMULIN N KWIKPEN) 100 unit/mL (3 mL) injection PEN insulin pen needles (disposable) (BD UF LYNETTE PEN NEEDLES) 32 gauge x 5/32" pen needle lidocaine 2% (20 mg/mL) soln lisinopril (PRINIVIL; ZESTRIL) 10 mg tablet micafungin (MYCAMINE) 100 mg/5 mL 100 mg in sodium chloride 0.9% (NS) 0.9 % 100 mL IVPB (MB+) pancrelipase 20,000 Units/ sodium bicarbonate 650 mg(#) (KU CLOG DESTROYER) 20, 000 Unit/ 650 mg cap potassium chloride SR (K-DUR) 10 mEq tablet simethicone (MYLICON) 80 mg chew tablet vitamin A & D oint Scheduled appointments: Mar 17, 2018 2:00 PM CDT New Patient with Antonio Calhoun MD [facility] (Burn/Wound) [address] [facility] Ground Floor [address] [facility] [address] Apr 14, 2018 9:50 AM CDT Post - Op with aTmiko Luther MD [facility] - Orthopedics ([facility]) 1st And 2nd Floor [address] [facility] Orthopedics [facility] [address] Apr 22, 2018 11:15 AM CDT Return Patient with Arnaldo Delacruz MD [facility] ([facility]) [address] [facility] [address] Jun 02, 2018 11:[address] CHEST W/CONTRAST with [facility] ([facility]) [address] [facility] Med Office [facility] 2nd Floor [facility] [address] Jun 02, 2018 12:45 PM CDT Consult Patient with Christian Skinner MD [facility] ([facility]) [address] [place] [address] Pending items needing follow up: Signed: Ravi Pride DO 03/03/2018 cc: Primary Care Physician: Della Cuellar Verified Referring physicians: No ref. provider found Additional provider(s): in this encounter Discharge Instructions * Discharge Instr - Case Management - Hakeem Escalona - 03/02/2018 2:20 PM CDT [facility] will be contacting you to schedule home health services. Please call them with questions or concerns at [phone]. * Rehab Team Physician - Ravi Pride DO - 01/18/2018 2:45 PM CDT Beata Kaiser is a 52 yo F who presented to [facility] on 12/13/17 for scheduled left hemipelvectomy for chondrosarcoma. Pt became septic with GBS, ID consulted, being treated with ertapenem. Diverting colostomy was placed on 12/30 due to stool saturating the wound. Wound vac currently in place with MWF changes. Chrondrosarcomas/p hemipelvectomy - Wound Vac changes MWF. Planning on x20 HBOT finished 03/01 High grade fever - 02/26/18 pt with multiple fevers restarted broad spectrum abx, consulted ID GBS bacteremia w/ sepsis - Completed course of Abx, no monitoring off Generalized and phantom limb pain - gabapentin 600mg Q6h, increased nortriptyline to 75mg, oxycontin 10mg BID, oxycodone 20mg Q4h, IV fentanyl with wound vac changes Tremor - improved on decreased dose of gabapentin DVT - s/p IVC filter, continue xarelto DM2 - Endocrine consulted and adjusting insulin Nutrition - Regular diet Bladder - pulled melchor 02/18, working on continence * Rehab Team Repairer [employer]/Case Management Support/Ongoing Services/DME - MarloantioneHakeem darnell - 01/18/2018 2:22 PM CDT Living Situation Prior to Admission Living Arrangements Type of Residence: Home, independent Living Arrangements: Spouse/significant other Bathroom Shower / Tub: Tub/Shower Unit How many levels in the residence?: 1 Can patient live on one level if needed?: Yes Does residence have entry and/or side stairs?: Yes (2 entry steps) Assistance needed prior to admit or anticipated on discharge: No Who provides assistance or could if needed?: Pt's Marvin and dtr's Lynn and Mica Are they in good health?: Yes Can support system provide 24/7 care if needed?: Yes Pt lives in a single level home with 2 entry steps. Pt's bathroom has a 3 ft wide door with standard toilet and tub/shower combo. Pt lives with her Marvin, dtrs Lynn (18 yo), Mica (29 yo), and adult son Skyler. 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 Lynn and Mica are DANCE DIRECTOR's and can assist with pt's care. Pt's family can provide consistent support, as needed, and physical assistance. Pt was independent with all ADL's, including working and driving, without device, prior to admission. Pt owns a single point cane. * Rehab Team Weekly Goals - Esteban Montoya, OT - 01/18/2018 12:47 PM CDT Family training with spouse * Rehab Team DC Planning - Hedy Pearce, PT - 01/18/2018 12:46 PM CDT Plan Home with home health OT/PT DME Hospital bed with air mattress, wheelchair/cushion ([facility] to [facility] 03/01 and will provide loaner chair), slideboard, roller walker (can provide family information to purchase), padded drop-arm commode if melchor remains out, transport home? (pending car transfer) * Rehab Team PT Barriers and Concerns - Hedy Pearce, PT - 01/18/2018 12:46 PM CDT Currently needing physical or setup assist for all transfers and wheelchair mobility. Needs ramp for home, not currently in place - plans to be in place in this weekend. Planning to attempt car transfer this week Patient's spouse needs further hands-on training. * Rehab Team PT Progression - Hedy Pearce, PT - 01/18/2018 12:44 PM CDT Transitioned lower body dressing at supine bed level to edge of bed with switchman and standing to pull tab dealer hips Upper body dressing from minimal assistance to stand by assistance. Squat pivot transfers with therapy staff require assist of only one person. Standing transfers with therapy have improved. Have initiated commode transfers within past week. Have initiated family training with spouse for transfers. Patient participated in therapeutic outing to restaurant with PT, OT staff. in this encounter Medications at Time of Discharge Medication Sig. Disp. Refills Start Date End Date acetaminophen (TYLENOL) Take 2 tablets by mouth 0 03/02/2018 325 mg tablet every 6 hours as needed. aspirin EC 81 mg tablet Take 81 mg by mouth daily. Take with food. buPROPion (WELLBUTRIN) Take 1 tablet by mouth 90 tablet 1 03/02/2018 100 mg tablet three times daily. busPIRone (BUSPAR) 30 mg Take 30 mg by mouth twice tablet daily. collagenase (SANTYL) 250 Apply to left lower 90 g 1 03/02/2018 unit/g topical ointment abdominal wound. Do not apply over incision. See wound care instructions ertapenem (INVANZ) 1 g/10 Administer 10 mL through 1 each 03/03/2018 mL IVP vein every 24 hours. Continue daily until surgery ferrous sulfate (FEOSOL, Take 1 tablet by mouth 90 tablet 3 2017 FEROSUL) 325 mg (65 mg three times daily with iron) tablet meals. Take on an empty stomach at least 1 hour before or 2 hours after food. gabapentin (NEURONTIN) Take 2 capsules by mouth 240 capsule 1 2017 300 mg capsule every 6 hours. lactobacillus rhamnosus Take 1 capsule by mouth 90 capsule 3 2017 GG (CULTURELLE) 15 as directed twice daily billion cell cpSP capsule with meals. levothyroxine (SYNTHROID) Take 1 tablet by mouth 30 tablet 1 2017 200 mcg tablet daily before breakfast. lovastatin(+) (MEVACOR) Take 40 mg by mouth at 40 mg tablet bedtime daily. metFORMIN (GLUCOPHAGE) Take 1 tablet by mouth 60 tablet 1 03/02/2018 1,000 mg tablet twice daily with meals. nortriptyline (PAMELOR) Take 1 capsule by mouth 30 capsule 1 2017 75 mg capsule at bedtime daily. ondansetron (ZOFRAN) 4 mg Take 1 tablet by mouth 30 tablet 0 2017 tablet every 6 hours as needed. oxyCODONE (ROXICODONE, Take 1 tablet by mouth 42 tablet 0 03/02/2018 OXY-IR) 15 mg tablet every 4 hours as needed Earliest Fill Date: 03/02/18 oxyCODONE SR (OXYCONTIN) Take 1 tablet by mouth 30 tablet 0 2017 10 mg ER tablet twice daily Earliest Fill Date: 03/02/[address] Take 1 tablet by mouth 30 tablet 1 03/02/2018 (PROTONIX) 40 mg tablet daily. rivaroxaban (XARELTO) 20 Take 1 tablet by mouth 90 tablet 0 2017 mg tablet daily with breakfast. senna/docusate Take 1 tablet by mouth 60 tablet 0 12/03/2017 (SENOKOT-S) 8.6/50 mg twice daily. tablet sitaGLIPtin (JANUVIA) 100 Take 1 tablet by mouth 30 tablet 1 2017 mg tab tablet daily. sodium hypochlorite Apply topically to 946 mL 0 03/02/2018 (DAKIN'S 1/2 STRENGTH) affected area as needed. 0.25 % topical solution vancomycin (VANCOCIN) Administer 1,500 mg 03/02/2018 1,500 mg in dextrose 5% through vein every 24 (D5W) 300 mL IVPB hours. Continue until surgery. as of this encounter Progress Notes * Sandra Young, PHARMD - 03/02/2018 4:55 PM CDT [facility] Note Medication Delivery Date/Time/Place: Medication & supplies delivered to pt room prior to dishcarge 03.02.18 Start of Care: Home doses of Vancomycin to begin 03.02.18; Invanz to begin 03.03.18 Teach: EMORY GRACE< Hugh conducted bedside teach with patient prior to discharge Drug: Invanz 1gm / Vancomycin 1.5 gm Frequency: Q 24 hours Adm Method: [place] / Elastomeric Adm Directions: Administer Invanz 1 gm (100 ml) IV every 24 hours. Infuse over approximately 30 minutes via rate controlled tubing set to 200 ml/hr. Administer Vancomycin 1.5 gm (300 ml) IV every 24 hours. Dose will infuse over approximately 1 hour & 45 minutes via Eclipse device Duration of therapy: minimum 2 weeks Access: PICC-sl Flush: NS 5-10ml before and after each dose; Heparin 10 units/ml 5 ml as final flush/lock Lab orders: CBC w/diff, CMP, Vanco trough Q Wednesday. First vanco trough prior to 4th dose (03.05.18) Fax results to: Dr Encarnacion [phone] & EMORY [phone] HH: [facility] [phone] MD: Howard Encarnacion * Olena Carreon, RN - 03/02/2018 4:55 PM CDT Beata Kaiser discharged on 03/02/2018. . Discharge instructions reviewed with family. Valuables returned: Personal Items / Valuables: Eyeglasses/Contacts, Electronics, Clothing Electronic Devices: Cell Phone. Home medications: . Functional assessment at discharge complete: Yes . Pt assisted to 's rental car via slide board with [employer]SULTANT Kady. * Adrienne Zarate MD - 03/02/2018 4:29 PM CDT Formatting of this note may be different from the original. Subjective: Patient doing well. No new issues or concerns. Plans for home today. Objective: Blood pressure 140/73, pulse 120, temperature 36.9 C (98.5 F), height 160 cm (63"), weight 97.9 kg (215 lb 12.9 oz), last menstrual period , SpO2 96 %. General: AAOx3, NAD Cardiac: tachycardic Respirations: Unlabored Abdomen: soft, nd, nt, colostomy present Extremities: hemipelvectomy wound evaluated during WV change, healthy granulation tissue present within wound base, several areas of eschar which are starting to peel back, remainder of incision intact No results for input(s): PTT, INR in the last 72 hours. CBC w/Diff Lab Results Component Value Date/Time WBC 9.8 03/02/2018 08:15 AM HGB 8.0 (L) 03/02/2018 08:15 AM HCT 24.1 (L) 03/02/2018 08:15 AM PLTCT 533 (H) 03/02/2018 08:15 AM Basic Metabolic Profile Lab Results Component Value Date/Time NA 137 03/02/2018 08:15 AM K 4.4 03/02/2018 08:15 AM CL 104 03/02/2018 08:15 AM CO2 27 03/02/2018 08:15 AM GAP 6 03/02/2018 08:15 AM Lab Results Component Value Date/Time BUN 12 03/02/2018 08:15 AM CR 0.92 03/02/2018 08:15 AM GLU 110 (H) 03/02/2018 08:15 AM A/P: 52 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 Luther in coordination with plastic surgery visit w/ Dr. Calhoun -Plastic surgery planning on future debridement and will evaluate as an outpatient Adrienne Zarate MD [id number] * Nneka Garsia RN - 03/02/2018 1:58 PM CDT Formatting of this note may be different from the original. Wound Ostomy Note NAME:Beata Kaiser :1965 AGE: 52 y.o. ADMISSION DATE: 01/14/2018 DAYS ADMITTED: LOS: 47 days Reason for Consult/Visit: wound not pressure Assessment/Plan: Principal Problem: Left hip amputation status Active Problems: Chondrosarcoma (HCC) Acute blood loss as cause of postoperative anemia Depression Anxiety DM (diabetes mellitus) (HCC) 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 Chronic pain Post-op pain Bacteremia Amputated left leg (HCC) Candiduria Wounds (NOT for Pressure Injuries) 11/30/17 0853 Left Buttocks Surgical Incision (Active) 11/30/17 0853 Buttocks Wound Orientation: Left Wound Type: Surgical Incision Wound Type:: Wound Description (Comments): Carlos Manuel Rosales Drain, Sutures, xeroform, 4x4's, and tegaderm. Wound Image 02/28/2018 12:00 PM Agree With My Assessment? Yes 02/08/2018 12:00 AM Wound Base Assessment Dressing intact, base not assessed 03/02/2018 12:00 PM Surrounding Skin Assessment [place];Dry 03/01/2018 12:00 PM Wound Site Closure [place] 03/01/2018 12:00 PM Wound Drainage Amount Small 03/01/2018 12:00 PM Wound Drainage Description Serosanguineous 03/01/2018 12:00 PM Wound Dressing Status Intact 03/02/2018 12:00 PM Wound Dressing and / or Treatment Dry Gauze Outers 03/01/2018 12:00 PM Wound Length (cm) (Wound Team Only) 17 cm 02/28/2018 12:00 PM Wound Width (cm) (Wound Team Only) 5 cm 02/28/2018 12:00 PM Wound Depth (cm) (Wound Team Only) 1.5 02/28/2018 12:00 PM Wound Volume (cm^3) (Wound Team Only) 127.5 cm^3 02/28/2018 12:00 PM Wound Healing % (Wound Team Only) -1114.29 02/28/2018 12:00 PM Number of days: 92 Wounds (NOT for Pressure Injuries) 12/14/17 1748 Left Abdomen Ulcer (not from pressure) (Active) 12/14/17 1748 Abdomen Wound Orientation: Left Wound Type: Ulcer (not from pressure) Wound Type:: Wound Description (Comments): Wound Image 02/28/2018 12:00 PM Agree With My Assessment? Yes 02/08/2018 12:00 AM Wound Base Assessment Moist;Slough;Yellow;[place] 03/02/2018 12:00 PM Surrounding Skin Assessment [place];Intact 03/02/2018 12:00 PM Wound Site Closure None 03/02/2018 12:00 PM Wound Drainage Amount Small 03/02/2018 12:00 PM Wound Drainage Description Serosanguineous 03/02/2018 12:00 PM Wound Dressing Status Changed 03/02/2018 12:00 PM Wound Dressing and / or Treatment Collagenase;Gauze (4X4) 03/02/2018 12:00 PM Wound Length (cm) (Wound Team Only) 6.5 cm 02/28/2018 12:00 PM Wound Width (cm) (Wound Team Only) 18 cm 02/28/2018 12:00 PM Wound Depth (cm) (Wound Team Only) 0.1 02/28/2018 12:00 PM Wound Volume (cm^3) (Wound Team Only) 11.7 cm^3 02/28/2018 12:00 PM Wound Healing % (Wound Team Only) -39.29 02/28/2018 12:00 PM Wound Status (Wound Team Only) Being Treated 02/09/2018 11:40 AM Number of days: 78 Wounds (NOT for Pressure Injuries) 12/30/17 1002 Left;Anterior Surgical Incision stump (Active) 12/30/17 1002 Wound Orientation: Left;Anterior Wound Type: Surgical Incision Wound Type:: stump Wound Description (Comments): Suture, ceci, telfa and iodine, 4x4, and tegaderm Wound Image 02/28/2018 12:00 PM Agree With My Assessment? Yes 02/08/2018 12:00 AM Wound Base Assessment Eschar;Dry 03/02/2018 12:00 PM Surrounding Skin Assessment [place];Intact;Dry 03/02/2018 12:00 PM Wound Site Closure [place] 03/02/2018 12:00 PM Wound Drainage Amount Scant 03/02/2018 12:00 PM Wound Drainage Description Serosanguineous 03/02/2018 12:00 PM Wound Dressing Status Changed 03/02/2018 12:00 PM Wound Dressing and / or Treatment Dry Gauze Outers 03/02/2018 12:00 PM Wound Length (cm) (Wound Team Only) 18 cm 02/28/2018 12:00 PM Wound Width (cm) (Wound Team Only) 23 cm 02/28/2018 12:00 PM Wound Depth (cm) (Wound Team Only) 0.3 02/28/2018 12:00 PM Wound Volume (cm^3) (Wound Team Only) 124.2 cm^3 02/28/2018 12:00 PM Wound Healing % (Wound Team Only) -263.58 02/28/2018 12:00 PM Number of days: 62 Wounds (NOT for Pressure Injuries) 01/10/18 1100 Hip Surgical Incision (Active) 01/10/18 1100 Hip Wound Orientation: Wound Type: Surgical Incision Wound Type:: Wound Description (Comments): Wound Image 02/28/2018 12:00 PM Agree With My Assessment? Yes 02/08/2018 12:00 AM Wound Base Assessment Dressing intact, base not assessed 03/02/2018 12:00 PM Surrounding Skin Assessment Edema 03/01/2018 12:00 PM Wound Site Closure Ceci 03/01/2018 12:00 PM Wound Drainage Amount Large 03/01/2018 12:00 PM Wound Drainage Description Serosanguineous;[place] 03/01/2018 12:00 PM Wound Dressing Status Intact 03/02/2018 12:00 PM Wound Dressing and / or Treatment [place];Dry Gauze Outers 03/01/2018 12: 00 PM Wound Length (cm) (Wound Team Only) 13 cm 02/28/2018 12:00 PM Wound Width (cm) (Wound Team Only) 30 cm 02/28/2018 12:00 PM Wound Depth (cm) (Wound Team Only) 9 02/28/2018 12:00 PM Wound Volume (cm^3) (Wound Team Only) 3510 cm^3 02/28/2018 12:00 PM Wound Healing % (Wound Team Only) -50 02/28/2018 12:00 PM Wound Status (Wound Team Only) Being Treated 02/21/2018 11:40 AM Tunneling in CM (Wound Team Only) 15 cm 02/28/2018 12:00 PM Tunnelling Location 3 02/28/2018 12:00 PM Number of days: 51 Wounds (NOT for Pressure Injuries) 01/10/18 Left;Inner;Posterior Buttocks Surgical Incision (Active) 01/10/18 Buttocks Wound Orientation: Left;Inner;Posterior Wound Type: Surgical Incision Wound Type:: Wound Description (Comments): Wound Image 02/28/2018 12:00 PM Agree With My Assessment? Yes 02/15/2018 9:00 PM Wound Base Assessment Eschar;Moist;[place];Slough 03/02/2018 12:00 PM Surrounding Skin Assessment [place];Intact 03/02/2018 12:00 PM Wound Site Closure Ceci 03/02/2018 12:00 PM Wound Drainage Amount Moderate 03/02/2018 12:00 PM Wound Drainage Description Serosanguineous 03/02/2018 12:00 PM Wound Dressing Status Changed 03/02/2018 12:00 PM Wound Dressing and / or Treatment Dry Gauze Outers 03/02/2018 12:00 PM Wound Length (cm) (Wound Team Only) 10 cm 02/28/2018 12:00 PM Wound Width (cm) (Wound Team Only) 5 cm 02/28/2018 12:00 PM Wound Depth (cm) (Wound Team Only) 1 02/28/2018 12:00 PM Wound Volume (cm^3) (Wound Team Only) 50 cm^3 02/28/2018 12:00 PM Wound Healing % (Wound Team Only) -669.23 02/28/2018 12:00 PM Number of days: 51 Colostomy 12/30/17 1209 Right (Active) 12/30/17 1209 Right Agree With My Assessment? Yes 02/25/2018 1:00 PM Stoma Assessment Red 03/02/2018 12:00 PM Drainage Description Brown 03/02/2018 12:00 PM Peristomal Skin Assessment Dry;Intact 03/02/2018 12:00 PM Dressing Status Dry;Intact 03/02/2018 12:00 PM Stoma Miscellaneous Other (Comment) 02/05/2018 8:00 AM Drain Output (ml) 0 ml 03/01/2018 8:33 PM Pt seen today for D/C planning and dressing change. Dressing change done with RN at the bedside. Dr Luther happened to be over in rehab and was able to take a look at the wounds as well. Wound continue to appear the same, no increased drainage noted or erythema. Gathered dressing for discharge. Daily supplies, 2 kerlix's heavy drainage pad Special burn dressing Netting size 10. (sent box with patient) Pt tolerating dressing well. Will speak to home health RN today and give direct contact info and email last note to them. no concerns for acute infection to the wound. will continue to be a resource for HH agency. Thank you Opal Garsia RN, BSN Wound /Ostomy Team Pager [phone] After Hours Wound/Ostomy team pager [phone] * Ruth Allen MD - 03/02/2018 9:33 AM CDT Formatting of this note may be different from the original. ATTESTATION I personally performed the banuelos portions of the E/M visit, discussed case with resident and concur with resident documentation of history, physical exam, assessment, and treatment plan unless otherwise noted. Labs and VS reviewed and stable. Based on wound cultures, will d/c home on IV ertepenem and vancomycin until f/u with Plastic Surgery (~2-3wks). Weekly labs to be drawn by HH nurse and faxed to ID. PICC line today. Wound care nurse gave final wound recs, relayed to HH nurse, will ensure she has enough supplies for wound and ostomy until can supply. Has f/u Ortho, PMR, CTS, and will arrange for f/u Plastics, d/w them. The patient was seen today and remained stable for discharge. The patient discharged home with assistance from family. Follow up instructions including appointments were provided and prescriptions were provided. Patient understands signs to look out for that would require to call a doctor(s) and/or call 911. 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 Patient met overall goal of mod I with ultralight wheelchair, RW, slideboard, hospital bed, ramp at household level by time of rehab discharge. Discharge home today with PT/OT/RN. Plan to return to Plastics clinic in ~2- 3 weeks for planned next surgical debridement of wound. Patient knows to follow up with Ortho, PMR, CTS and Plastics. Patient knows not to return to work or driving until cleared by outpatient physicians. Patient knows NWB LLE, ostomy and wound precautions. Family training was completed for mobility, ADLs, medications, ostomy, wound care. Total time 45 minutes. Estimated counseling time 20 minutes. Counseled patient regarding rehab plan of care, remainder of time spent in review of labs , discharge medication reconciliation, coordination of care with multiple teams in the care of this very complex patient. Staff name: Ruth Allen MD Date: 03/02/2018 Physical Medicine & Rehabilitation Progress Note Today's Date: 03/02/2018 Admission Date: 01/14/2018 LOS: 47 days Insurance: [facility] Principal Problem: Left hip amputation status Active Problems: Chondrosarcoma (HCC) Acute blood loss as cause of postoperative anemia Depression Anxiety DM (diabetes mellitus) (HCC) 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 Chronic pain Post-op pain Bacteremia Amputated left leg (HCC) Candiduria Assessment/Plan: Beata Lema a 52 y.o.female[facility] the following issues : 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 Patient will need a modified schedule of 15 hours over 7 days to accommodate HBOT schedule. Goals: household mobility at wheelchair level mod I Tentative discharge date: 03/02/18 Recommended therapy after discharge: home health OT/PT Recommended equipment: Hospital bed, wheelchair/cushion, slideboard, ramp - Patient requires hospital bed at discharge. Patient requires positioning of the body in ways not feasible with ordinary beds to in order to alleviate pain. Patient requires frequent repositioning of the body and/or has an immediate need for change in body position. - Due to patients functional limitations they require a manual wheelchair for independent mobility in the home. A therapy evaluation was completed during their inpatient rehab stay to assess the most appropriate wheelchair for the patient. Daily Functional Update: Transfers Device Sit to Stand Transfer: Assistive Device: Roller Walker (03/01/2018 11:00 AM) No Data Recorded Gait Device Assist Required Distance Gait: Assistive Device: Roller Walker;Wheelchair Follow (02/27/2018 4:00 PM) No Data Recorded Gait Distance: 8 feet (3') (02/27/2018 4:00 PM) Toileting Assist Required Equipment Toilet Transfer Toileting Assist: Maximum Assist (02/27/2018 10:00 AM) No Data Recorded No Data Recorded Dressing Lower Body LE Dressing Assist: Total Assist (03/01/2018 11:00 AM) Chrondrosarcoma s/p hemipelvectomy and hemisacrectomy Lymphedema wound and residual limb >Plan on 20 treatment of HBOT M-F in late afternoon >Wound vac d/c on 02/24. Continue wound care per wound care recs >Will f/u with plastic surgery if she will need to go back to OR around time of discharge Post-op pain in setting of chronic pain Phantom limb pain, neuropathic pain >Tylenol, oxycontin 10mg BID and oxycodone 15mg q3h prn. Lidoderm patch prn. > Continue nortriptyline 75mg QHS > Continue gabapentin 600mg Q6h Tremors - improving -Likely related to gabapentin >improved with decreased gabapentin to 600mg Q6h >Continue oxycodone 15mg q3h prn (decreased 02/25) s/p diverting colostomy - Stool saturating wound. Diverting colostomy done 12/30 >wound/ostomy consulted, working on education with nursing Bladder injury, recent repair - bladder and urethral injuries during hemipelvectomy on 12/14/17 - underwent cystoscopy with left ureteral stent insertion, Bladder neck repair, Urethroplasty and repair of urethral injury, Vaginal closure > Per ortho/urology/plastics/Wound care ok to d/c melchor. > Melchor D/c 02/18, no signs of retention with x3 PVR's > Continue timed voids and bladder training Chest lesions (metastases?) - 11/26/17 CT: few small pulmonary nodules. >repeat CT chest 02/25 with stable nodules, most likely scars or granulomas per report GBS bacteremia w/ sepsis due to left hip wound - Completed course of abx 01/23 ertapenem - Multiple fevers 01/26, started Vanc/Meropenem 09/21 bcx contaminated, Repeat blood cx's 01/31 negative -PICC d/c 02/18 per ID recs (infection risk) -Multiple fevers 02/26/18 (>101 F) -ID re consulted, appreciate recs >Ertapenem and Vanc until f/u with with plastic surgery >Blood cx NGTD, urine cx growing E.coli. DVT - 11/30/17 IVC filter for DVT within the external iliac vein >cont Xarelto ABLA, stable - Transfusion 01/15, 01/28, and 02/27 1U PRBC - monitor labs T2DM - A1c 6.5%, controlled - CAMP TENDER regimen: Metformin thousand milligrams twice a day, [id number] mg daily (resume at discharge) > Correction factor > Metformin 1000mg BID, Januvia 100mg daily 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 - CAMP TENDER 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 daily - TSH 2.1 this admission >levothyroxine increased 200 mcg on 01/26 >She will need repeat thyroid function tests in 6-8 weeks (~March 08) Major depressive disorder, recurrent, moderate CLAUDIA Adjustment disorder with mixed anxiety and depressed mood > continue CAMP TENDER Wellbutrin and buspar, started on nortriptyline this admission Nutrition -Corpak d/c 02/02 > weekly prealbumin and albumin - remains low > D/c corpak 02/02 > Continue current diet with protein supplementation HLD: holding CAMP TENDER statin Insomnia: nortriptyline 75mg qhs DVT Prophylaxis:Xarelto, will discharge on it Ravi Pride, DO Subjective NEON. Pt resting in bed when seen on rounds. Pt anxious to be d/c later today. ID recommending IV abx until f/u appointment with plastic surgery. IV therapy consulted for PICC placement. Objective Vital Signs: Last Filed Vital Signs: 24 Hour Range BP: 124/74 (03/02 802) Temp: 36.4 C (97.5 F) (03/02 802) Pulse: 122 (03/02 802) Respirations: 16 PER MINUTE (03/02 802) SpO2: 94 % (03/02 802) O2 Delivery: None (Room Air) (03/02 802) BP: (120-134)/(65-80) Temp: [36.4 C (97.5 F)-37.7 C (99.9 F)] Pulse: [110-123] Respirations: [16 PER MINUTE-19 PER MINUTE] SpO2: [92 %-97 %] O2 Delivery: None (Room Air) Intensity Pain Scale 0-10 (Pain 1): 6 (03/02/18 0632) Vitals: 02/28/18 0418 03/01/18 0614 03/02/18 0500 Weight: 97.5 kg (215 lb) 97.9 kg (215 lb 12.8 oz) 97.9 kg (215 lb 12.9 oz) Intake/Output Summary: (Last 24 hours) Intake/Output Summary (Last 24 hours) at 03/02/18 0933 Last data filed at 03/02/18 0900 Gross per 24 hour Intake 240 ml Output 550 ml Net -310 ml Stool Occurrence: 1 Oral Diet Order: Diabetic [id number] Kcal/day (60 g Carb/meal, 30 g Carb/HS snack ) Last BM Date: 03/01/18 Lab: Results for orders placed or performed during the hospital encounter of (from the past 24 hour(s)) POC GLUCOSE Collection Time: 03/01/18 11:14 AM # # Low-High Glucose, POC 145 (H) 70 - 100 MG/DL POC GLUCOSE Collection Time: 03/01/18 1:20 PM # # Low-High Glucose, POC 114 (H) 70 - 100 MG/DL POC GLUCOSE Collection Time: 03/01/18 3:17 PM # # Low-High Glucose, POC 100 70 - 100 MG/DL POC GLUCOSE Collection Time: 03/01/18 5:18 PM # # Low-High Glucose, POC 109 (H) 70 - 100 MG/DL VANCOMYCIN TROUGH Collection Time: 03/01/18 8:07 PM # # Low-High Vancomycin Trough 17.3 10.0 - 20.0 MCG/ML LIVER FUNCTION PANEL Collection Time: 03/01/18 8:07 PM # # Low-High Total Bilirubin 0.3 0.3 - 1.2 MG/DL Bilirubin, Direct <0.1 <0.4 MG/DL Albumin 2.3 (L) 3.5 - 5.0 G/DL Alk Phosphatase 110 25 - 110 U/L AST (SGOT) 47 (H) 7 - 40 U/L ALT (SGPT) 26 7 - 56 U/L Total Protein 5.7 (L) 6.0 - 8.0 G/DL POC GLUCOSE Collection Time: 03/01/18 9:13 PM # # Low-High Glucose, POC 132 (H) 70 - 100 MG/DL POC GLUCOSE Collection Time: 03/02/18 7:05 AM # # Low-High Glucose, POC 99 70 - 100 MG/DL CBC CELLULAR THERAPEUTICS Collection Time: 03/02/18 8:15 AM # # Low-High White Blood Cells 9.8 4.5 - 11.0 [...] MPV 6.6 (L) 7 - 11 FL BASIC METABOLIC PANEL CELLULAR THERAPEUTICS Collection Time: 03/02/18 8:15 AM # # Low-High Sodium 137 137 - 147 MMOL/L Potassium 4.4 3.5 - 5.1 MMOL/L Chloride 104 98 - 110 MMOL/L CO2 27 21 - 30 MMOL/L Anion Gap 6 3 - 12 Glucose 110 (H) 70 - 100 MG/DL Blood Urea Nitrogen 12 7 - 25 MG/DL Creatinine 0.92 0.4 - 1.00 MG/DL Calcium 8.6 8.5 - 10.6 MG/DL eGFR Non >60 >60 mL/min eGFR >60 >60 mL/min Scheduled Meds: aspirin chewable tablet 81 mg 81 mg Oral QDAY buPROPion (WELLBUTRIN) tablet 100 mg 100 mg Oral TID busPIRone (BUSPAR) tablet 30 mg 30 mg Oral BID collagenase (SANTYL) topical ointment Topical QDAY docusate (COLACE) capsule 100 mg 100 mg Oral BID ertapenem (INVANZ) IVP 1 g 1 g Intravenous Q24H* ferrous sulfate (FEOSOL, FEROSUL) tablet 325 mg 325 mg Oral TID w/ meals gabapentin (NEURONTIN) capsule 600 mg 600 mg Oral Q6H insulin aspart U-100 (NOVOLOG FLEXPEN) injection PEN 0-6 Units 0-6 Units Subcutaneous ACHS lactobacillus rhamnosus GG (CULTURELLE) 15 billion cell capsule 1 capsule 1 capsule Oral BID w/meals levothyroxine (SYNTHROID) tablet 200 mcg 200 mcg Oral QDAY before breakfast metFORMIN (GLUCOPHAGE) tablet 1,000 mg 1,000 mg Oral BID w/meals nortriptyline (PAMELOR) capsule 75 mg 75 mg Oral QHS oxyCODONE SR (OXYCONTIN) tablet 10 mg 10 mg Oral BID pantoprazole DR (PROTONIX) tablet 40 mg 40 mg Oral QDAY(21) rivaroxaban (XARELTO) tablet 20 mg 20 mg Oral QDAY w/breakfast simvastatin (ZOCOR) tablet 20 mg 20 mg Oral QHS sitaGLIPtin (JANUVIA) tablet 100 mg 100 mg Oral QDAY sodium chloride PF 0.9% flush 3-5 mL 3-5 mL Intravenous FLUSH TID sodium chloride PF 0.9% flush 3-5 mL 3-5 mL Intravenous FLUSH TID vancomycin (VANCOCIN) 1,500 mg in dextrose 5% (D5W) IVPB 1,500 mg Intravenous Q24H* Continuous Infusions: PRN and Respiratory Meds:acetaminophen Q6H PRN, aluminum/magnesium hydroxide Q6H PRN, calcium carbonate Q4H PRN, milk of magnesia (CONC) Q4H PRN, ondansetron Q6H PRN, oxyCODONE Q4H PRN, oxyCODONE QDAY PRN, pancrelipase 20,000 Units/ sodium bicarbonate 650 mg(#) PRN (Catalogue Librarian from Rx), saliva, synthetic PRN , sodium hypochlorite PRN, vancomycin IVPB Q24H* AND vancomycin, pharmacy to manage Per Pharmacy Physical Exam VS: BP 124/74 (BP Source: Arm, Right) | Pulse (!) 122 | Temp 36.4 C (97.5 F) | Ht 160 cm (63") | Wt 97.9 kg (215 lb 12.9 oz) | LMP 01/14/2013 | SpO2 94% | BMI 38.23 kg/m General: Patient appears stated age, in no acute distress HEENT: Normocephalic, atraumatic Neck: No thyroidmegaly Cardiovascular: Well perfused Pulmonary: Unlabored respirations Extremities: No cyanosis, clubbing, or edema Skin: Warm and dry Psychiatric: Appropriate mood and affect Musculoskeletal: No atrophy, mild edema rle, s/p hemipelvectomy on left with dressings in place Neurologic: Antigravity strength in all extremities Psych: Flat affect Therapy Notes & Labs Reviewed. Ravi Pride DO * Howard Encarnacion MD - 03/02/2018 8:14 AM CDT Patient cultures are back acinetobacter is MDR but patient is better without acinetobacter coverage, will plan on picc line and discharge on ertapenem and vancomycin, would decrease the vancomycin dose to 1.5 grams Q 24 hours apparently patient will be back for surgery with plastic in about 2 weeks, will plan to continue IV abx until after surgery will need weekly cbc, cmp and vanc trough ( goal 10-15), next vanc trough in 4 days and fax to [phone] will be happy to see patient when she is admitted back for surgery. Discussed with rehab team * Christian Skinner MD - 03/01/2018 2:43 PM CDT Formatting of this note may be different from the original. This is a 52-year-old patient who developed a chondrosarcoma of the pelvis. She has had an extensive operation in the last several months. She is currently in our rehab [facility] undergoing hyperbaric oxygen therapy to promote wound healing. Prior to the operation on an abdominal CT scan, there were several indeterminate pulmonary nodules in the lower lobe. While these lesions may represent a metastatic foci, they may also represent a benign process. Given the complication she was experiencing from the pelvic mass, the patient underwent a hemipelvectomy with the plan to evaluate her more formally to treat the potential metastatic lesions in the chest. The patient has finally undergone a repeat evaluation with a dedicated chest CT scan. I reviewed the CT scan with a prior abdominal imaging with our chest radiologist. The lesions at the base of her lungs are less obvious on the more recent scan given the degree of atelectasis the patient has in both lower lobes. In addition to this, she has a tree-in-bud appearance in portions of her right lower lobe suggesting a infectious etiology. Bilaterally, she also has a number of small indeterminate pulmonary nodules beyond those visualized on the initial abdominal portion of her CT scan. I spent time with the patient as she was being prepared for her hyperbaric treatment today. I reviewed the imaging results and offered my recommendations. I will plan on following up with this patient in 3 months time with a repeat CT of her chest. My office will be contacting the patient in order to schedule appropriate follow -up. Exam: obese lady, Chest CTA, CV RRR, no cervical or supraclavic nodes. -Christian Skinner MD Past Medical History: Diagnosis Date Anxiety Back pain Depression DM (diabetes mellitus) (HCC) 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 Past Surgical History: Procedure Laterality Date SKIN BIOPSY Left 11/30/2017 BIOPSY SKIN LEFT PELVIS performed by [facility] PELVIS OSTEOTOMY Left 12/14/2017 JAMIL PELVECTOMY performed by Tamiko [facility] URETER STENT PLACEMENT Bilateral 12/14/2017 CYSTORRHAPHY AND BLADDER NECK REPAIR, CYSTOSCOPY, performed by Spencer Purcell MD [facility] PERIPHERAL VASCULAR SURGERY Left 12/14/2017 LEFT ILIAC EXPOSURE performed by Pio Malagon DO [facility] LEG DEBRIDEMENT Left 01/10/2018 WOUND EXPLORATION LEFT HEMIPELVECTOMY, IRRIGATION AND DEBRIDEMENT, WOUND VAC PLACEMENT performed by Tamiko [facility] MD [facility] NM VOIDING CYSTOGRAM N/A 01/10/2018 CYSTOGRAM, MELCHOR CATHETER EXCHANGE performed by Tamiko [facility] MD [facility] SECTION HERNIA REPAIR MANDIBLE SURGERY Social History Social History Marital status: Spouse name: N/A Number of children: N/A Years of education: N/A Occupational History Not on file. Social History Main Topics Smoking status: Never Smoker Smokeless tobacco: Never Used Alcohol use No Drug use: No Sexual activity: Not on file Other Topics Concern Not on file Social History Narrative No narrative on file Family History Problem Relation Age of Onset Osteoporosis Mother Arthritis-rheumatoid Maternal Grandmother Current Facility-Administered Medications: acetaminophen (TYLENOL) tablet 650 mg, 650 mg, Oral, Q6H PRN, Ruth Allen MD, 650 mg at 03/01/18 0048 aluminum/magnesium hydroxide (MAALOX) oral suspension 30 mL, 30 mL, Oral, Q6H PRN, Ruth Allen MD, 30 mL at 03/01/18 004 aspirin chewable tablet 81 mg, 81 mg, Oral, QDAY, Ravi Pride DO, 81 mg at 03/01/18 09 buPROPion (WELLBUTRIN) tablet 100 mg, 100 mg, Oral, TID, Krunal Peraza MD, 100 mg at 03/01/18 09 busPIRone (BUSPAR) tablet 30 mg, 30 mg, Oral, BID, Krunal Peraza MD , 30 mg at 03/01/18 0918 calcium carbonate (TUMS) chew tablet 500-1,000 mg, 500-1,000 mg, Oral, Q4H PRN, Krunal Peraza MD, 1,000 mg at 02/26/18 1313 collagenase (SANTYL) topical ointment, , Topical, QDAY, Krunal Peraza MD docusate (COLACE) capsule 100 mg, 100 mg, Oral, BID, Krunal Peraza MD, 100 mg at 03/01/18 0917 ferrous sulfate (FEOSOL, FEROSUL) tablet 325 mg, 325 mg, Oral, TID w/ meals , Adrienne Zarate MD, 325 mg at 03/01/18 1237 gabapentin (NEURONTIN) capsule 600 mg, 600 mg, Oral, Q6H, Ravi Pride DO , 600 mg at 03/01/18 0917 insulin aspart U-100 (NOVOLOG FLEXPEN) injection PEN 0-6 Units, 0-6 Units, Subcutaneous, ACHSNorris Rudruidee, MD, 3 Units at 02/23/18 1235 lactobacillus rhamnosus GG (CULTURELLE) 15 billion cell capsule 1 capsule, 1 capsule, Oral, BID w/meals, Krunal Peraza MD, 1 capsule at 03/01/18 0751 levothyroxine (SYNTHROID) tablet 200 mcg, 200 mcg, Oral, QDAY before breakfast, Serenity Concepcion MD, 200 mcg at 03/01/18 0626 meropenem (MERREM) IVP 1 g, 1 g, Intravenous, Q8H*, 1 g at 03/01/18 0630 AND meropenem (MERREM) IVP 1 g, 1 g, Intravenous, Q8H*, Ravi Pride, , 1 g at 03/01/18 0639 metFORMIN (GLUCOPHAGE) tablet 1,000 mg, 1,000 mg, Oral, BID w/meals, Deonna Diaz, JOHNBS, 1,000 mg at 03/01/18 0751 milk of magnesia (CONC) oral suspension 10 mL, 10 mL, Oral, Q4H PRN, Krunal Peraza MD nortriptyline (PAMELOR) capsule 75 mg, 75 mg, Oral, QHS, Ruth Allen MD, 75 mg at 02/28/182138 ondansetron (ZOFRAN) tablet 4 mg, 4 mg, Oral, Q6H PRN, Ravi Pride, DO, 4 mg at 02/28/18 123 oxyCODONE (ROXICODONE, OXY-IR) tablet 15 mg, 15 mg, Oral, Q4H PRN, Ravi Pride, DO, 15 mg at 03/01/18 1045 oxyCODONE (ROXICODONE, OXY-IR) tablet 5 mg, 5 mg, Oral, QDAY PRN, Ravi Pride, DO, 5 mg at 03/01/18 1237 oxyCODONE SR (OXYCONTIN) tablet 10 mg, 10 mg, Oral, BID, Krunal Peraza MD, 10 mg at 03/01/18916 pancrelipase 20,000 Units/ sodium bicarbonate 650 mg(#) (KU CLOG DESTROYER ) for occluded feeding tube cap 1 capsule, 1 capsule, Feeding Tube, PRN (Catalogue Librarian from Rx), Krunal Peraza MD pantoprazole DR (PROTONIX) tablet 40 mg, 40 mg, Oral, QDAY(21), Krunal Peraza MD, 40 mg at 02/28/182138 rivaroxaban (XARELTO) tablet 20 mg, 20 mg, Oral, QDAY w/breakfast, Krunal Peraza MD, 20 mg at 03/01/18 0751 saliva, synthetic (MOUTHKOTE) oral spray 1 spray, 1 spray, Mouth/Throat, PRN, Ravi Pride, DO simvastatin (ZOCOR) tablet 20 mg, 20 mg, Oral, QHS, Ravi Pride, DO, 20 mg at 02/28/182138 sitaGLIPtin (JANUVIA) tablet 100 mg, 100 mg, Oral, QDAY, Milly Clarke, VP DATA, 100 mg at 03/01/18 0917 sodium chloride PF 0.9% flush 3-5 mL, 3-5 mL, Intravenous, FLUSH TID, Ruth Allen MD, 3 mL at 03/01/18 0752 sodium chloride PF 0.9% flush 3-5 mL, 3-5 mL, Intravenous, FLUSH TID, Ravi Pride DO, 3 mL at 03/01/18 0752 sodium hypochlorite (DAKIN'S 1/2 STRENGTH) 0.25 % topical solution, , Irrigation, PRN, Hugh Mitchell DO vancomycin (VANCOCIN) 2,000 mg in sodium chloride 0.9% (NS) IVPB, 2,000 mg , Intravenous, Q24H*, Last Rate: 270 mL/hr at 02/28/181942, 2,000 mg at 1942 AND vancomycin, pharmacy to manage, 1 each, Service, Per Pharmacy, Ravi Pride DO * Cherri Kinney, PhD - 03/01/2018 9:12 AM CDT [id number] Pt was seen for follow-up with no family or significant others present. Pt was alert, oriented, and open/responsive to inquiry. The utility of this service was discussed and pt agreed to participate. Speech was WNL and thought processes were connected and logical to content of conversation. Eye contact was within social norms and non-verbal behaviors were appropriate to context. Mood and affect were congruent and euthymic. Pt's reported mood was "good." Pt reported pain to feel managed, but indicated that she has had experienced frequent phantom limb pain. She reported sleep to be disrupted, noting that she awakens frequently in the night time, with some difficulty falling back asleep. She indicated some anxiety about her discharge and her medical cares she requires, but actively problem solved to identify solutions to some of her concerns. She discussed that her spouse and children will be a vital part of her support system at discharge. She discussed engaging with her support system as a coping strategy. Supportive and processing therapy was provided to pt. Psychoeducation regarding cognitive pain management strategies for phantom limb pain was introduced and discussed, with particular interventions of imagery of the limb and where the pain is and mindfulness being reviewed with pt. I encouraged pt to imagine the limb and where the pain may be and picture herself soothing (e.g., rubbing or massaging) where the pain is as an intervention for her pain. She was open and receptive to trying this. Pt's coping strategies were reinforced and reviewed and I encouraged pt to practice coping skills such as relaxed breathing as needed. Pts progress, utilization of coping skills, and goals for rehab therapies were supported. Will continue to follow and assess cognition, mood, pain management, and coping. Halima Miranda, Ph.D. Neurorehabilitation Psychology Postdoctoral Fellow Pager #: [phone] ATTESTATION: I discussed this session and pt's care with the fellow and agree with her note above. We will continue to follow prn until [facility] d/c. Warren Kinney, PhD, ABPP * Ruth Allen MD - 03/01/2018 8:42 AM CDT Formatting of this note may be different from the original. ATTESTATION I personally performed the banuelos portions of the E/M visit, discussed case with resident and concur with resident documentation of history, physical exam, assessment, and treatment plan unless otherwise noted. Labs and VS reviewed and stable. Blood and urine cultures negative. Will f/u ID Dr. Encarnacion abx choice and duration. Appreciate CTS Dr. Guevara f/moni pulmonary nodules, they will f/u in clinic. D/w Dr. Calhoun, he will plan for further surgical intervention in a few weeks. Wound care nurse will communicate with wound care nurse to ensure all orders are received appropriately. Dr. Luther aware of the plan to discharge home. SW will f/u with patient and family about HH, wound care, possibility of IV abx , ramp. [facility] coordinating equipment. Had wheelchair eval today with PT and vendor. Patient would benefit from ultralight wheelchair due to inability to propel standard wheelchair, has demonstrated the safe use of ultralight wheelchair, and it will fit in her home for safe mobility. Total time 35 minutes. Estimated counseling time 20 minutes. Counseled patient regarding rehab plan of care, remainder of visit spent in coordination of care with various members of the rehab and medical teams. Staff name: Ruth Allen MD Date: 03/01/2018 Physical Medicine & Rehabilitation Progress Note Today's Date: 03/01/2018 Admission Date: 01/14/2018 LOS: 46 days Insurance: [facility] Principal Problem: Left hip amputation status Active Problems: Chondrosarcoma (HCC) Acute blood loss as cause of postoperative anemia Depression Anxiety DM (diabetes mellitus) (HCC) 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 Chronic pain Post-op pain Bacteremia Amputated left leg (HCC) Candiduria Assessment/Plan: Beata Lema a 52 y.o.[facility] the following issues : 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 Patient will need a modified schedule of 15 hours over 7 days to accommodate HBOT schedule. Goals: household mobility at wheelchair level mod I Tentative discharge date: 03/02/18 Recommended therapy after discharge: home health OT/PT Recommended equipment: Hospital bed, wheelchair/cushion, slideboard, ramp - Patient requires hospital bed at discharge. Patient requires positioning of the body in ways not feasible with ordinary beds to in order to alleviate pain. Patient requires frequent repositioning of the body and/or has an immediate need for change in body position. - Due to patients functional limitations they require a manual wheelchair for independent mobility in the home. A therapy evaluation was completed during their inpatient rehab stay to assess the most appropriate wheelchair for the patient. Daily Functional Update: Transfers Device Sit to Stand Transfer: Assistive Device: Roller Walker (02/28/2018 9:31 AM) No Data Recorded Gait Device Assist Required Distance Gait: Assistive Device: Roller Walker;Wheelchair Follow (02/27/2018 4:00 PM) No Data Recorded Gait Distance: 8 feet (3') (02/27/2018 4:00 PM) Toileting Assist Required Equipment Toilet Transfer Toileting Assist: Maximum Assist (02/27/2018 10:00 AM) No Data Recorded No Data Recorded Dressing Lower Body LE Dressing Assist: Total Assist (02/27/2018 10:00 AM) Chrondrosarcoma s/p hemipelvectomy and hemisacrectomy Lymphedema wound and residual limb >Plan on 20 treatment of HBOT M-F in late afternoon >Wound vac d/c on 02/24. Continue wound care per wound care recs >Will f/u with plastic surgery if she will need to go back to OR around time of discharge Post-op pain in setting of chronic pain Phantom limb pain, neuropathic pain >Tylenol, oxycontin 10mg BID and oxycodone 15mg q3h prn. Lidoderm patch prn. > Continue nortriptyline 75mg QHS > Continue gabapentin 600mg Q6h Tremors - improving -Likely related to gabapentin >improved with decreased gabapentin to 600mg Q6h >Continue oxycodone 15mg q3h prn (decreased 02/25) s/p diverting colostomy - Stool saturating wound. Diverting colostomy done 12/30 >wound/ostomy consulted, working on education with nursing Bladder injury, recent repair - bladder and urethral injuries during hemipelvectomy on 12/14/17 - underwent cystoscopy with left ureteral stent insertion, Bladder neck repair, Urethroplasty and repair of urethral injury, Vaginal closure > Per ortho/urology/plastics/Wound care ok to d/c melchor. > Melchor D/c 02/18, no signs of retention with x3 PVR's > Continue timed voids and bladder training Chest lesions (metastases?) - 11/26/17 CT: few small pulmonary nodules. >repeat CT chest 02/25 with stable nodules, most likely scars or granulomas per report GBS bacteremia w/ sepsis due to left hip wound - Completed course of abx 01/23 ertapenem - Multiple fevers 01/26, started Vanc/Meropenem 09/21 bcx contaminated, Repeat blood cx's 01/31 negative -PICC d/c 02/18 per ID recs (infection risk) -Multiple fevers 02/26/18 (>101 F) -ID re consulted, appreciate recs >Continue meropenem/vanc, duration TBD >Blood cx NGTD, urine cx growing E.coli. DVT - 11/30/17 IVC filter for DVT within the external iliac vein >cont Xarelto ABLA, stable - Transfusion 01/15, 01/28, and 02/27 1U PRBC - monitor labs T2DM - A1c 6.5%, controlled - CAMP TENDER regimen: Metformin thousand milligrams twice a day, [id number] mg daily (resume at discharge) > Correction factor > Metformin 1000mg BID, Januvia 100mg daily 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 - CAMP TENDER 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 daily - TSH 2.1 this admission >levothyroxine increased 200 mcg on 01/26 >She will need repeat thyroid function tests in 6-8 weeks (~March 08) Major depressive disorder, recurrent, moderate CLAUDIA Adjustment disorder with mixed anxiety and depressed mood > continue CAMP TENDER Wellbutrin and buspar, started on nortriptyline this admission Nutrition -Corpak d/c 02/02 > weekly prealbumin and albumin - remains low > D/c corpak 02/02 > Continue current diet with protein supplementation HLD: holding CAMP TENDER statin Insomnia: nortriptyline 75mg qhs DVT Prophylaxis:Xarelto, will discharge on it Ravi Pride DO Subjective Fever of 100.7 overnight, blood cx x2 obtained. Pt sitting at EOB working with therapies when seen this am. Pt stated she thought she would be able to manage IV abx at discharge. Spoke with plastics resident/fellow this am who was not aware of any plans to take pt to OR for debridement. Objective Vital Signs: Last Filed Vital Signs: 24 Hour Range BP: 138/84 (03/01 819) Temp: 36.5 C (97.7 F) (03/01 819) Pulse: 118 (03/01 819) Respirations: 18 PER MINUTE (03/01 819) SpO2: 94 % (03/01 819) O2 Delivery: None (Room Air) (03/01 819) BP: (115-138)/(61-84) Temp: [36.5 C (97.7 F)-38.1 C (100.6 F)] Pulse: [109-121] Respirations: [18 PER MINUTE] SpO2: [91 %-100 %] O2 Delivery: None (Room Air) Intensity Pain Scale 0-10 (Pain 1): 5 (03/01/18 0723) Vitals: 02/27/18 0634 02/28/18 0418 03/01/18 0614 Weight: 97.8 kg (215 lb 11.2 oz) 97.5 kg (215 lb) 97.9 kg (215 lb 12.8 oz) Intake/Output Summary: (Last 24 hours) Intake/Output Summary (Last 24 hours) at 03/01/18 0842 Last data filed at 03/01/18 0837 Gross per 24 hour Intake 650 ml Output 725 ml Net -75 ml Stool Occurrence: 1 Oral Diet Order: Diabetic [id number] Kcal/day (60 g Carb/meal, 30 g Carb/HS snack ) Last BM Date: 02/28/18 Lab: Results for orders placed or performed during the hospital encounter of (from the past 24 hour(s)) POC GLUCOSE Collection Time: 02/28/18 11:51 AM # # Low-High Glucose, POC 126 (H) 70 - 100 MG/DL POC GLUCOSE Collection Time: 02/28/18 1:51 PM # # Low-High Glucose, POC 104 (H) 70 - 100 MG/DL POC GLUCOSE Collection Time: 02/28/18 3:50 PM # # Low-High Glucose, POC 103 (H) 70 - 100 MG/DL POC GLUCOSE Collection Time: 02/28/18 4:59 PM # # Low-High Glucose, POC 110 (H) 70 - 100 MG/DL POC GLUCOSE Collection Time: 02/28/18 8:19 PM # # Low-High Glucose, POC 78 70 - 100 MG/DL POC GLUCOSE Collection Time: 03/01/18 6:58 AM # # Low-High Glucose, POC 94 70 - 100 MG/DL Scheduled Meds: aspirin chewable tablet 81 mg 81 mg Oral QDAY buPROPion (WELLBUTRIN) tablet 100 mg 100 mg Oral TID busPIRone (BUSPAR) tablet 30 mg 30 mg Oral BID collagenase (SANTYL) topical ointment Topical QDAY docusate (COLACE) capsule 100 mg 100 mg Oral BID ferrous sulfate (FEOSOL, FEROSUL) tablet 325 mg 325 mg Oral TID w/ meals gabapentin (NEURONTIN) capsule 600 mg 600 mg Oral Q6H insulin aspart U-100 (NOVOLOG FLEXPEN) injection PEN 0-6 Units 0-6 Units Subcutaneous ACHS lactobacillus rhamnosus GG (CULTURELLE) 15 billion cell capsule 1 capsule 1 capsule Oral BID w/meals levothyroxine (SYNTHROID) tablet 200 mcg 200 mcg Oral QDAY before breakfast meropenem (MERREM) IVP 1 g 1 g Intravenous Q8H* And meropenem (MERREM) IVP 1 g 1 g Intravenous Q8H* metFORMIN (GLUCOPHAGE) tablet 1,000 mg 1,000 mg Oral BID w/meals nortriptyline (PAMELOR) capsule 75 mg 75 mg Oral QHS oxyCODONE (ROXICODONE, OXY-IR) tablet 15 mg 15 mg Oral Once per day on Wed oxyCODONE SR (OXYCONTIN) tablet 10 mg 10 mg Oral BID pantop[address]ole DR (PROTONIX) tablet 40 mg 40 mg Oral QDAY(21) rivaroxaban (XARELTO) tablet 20 mg 20 mg Oral QDAY w/breakfast simvastatin (ZOCOR) tablet 20 mg 20 mg Oral QHS sitaGLIPtin (JANUVIA) tablet 100 mg 100 mg Oral QDAY sodium chloride PF 0.9% flush 3-5 mL 3-5 mL Intravenous FLUSH TID sodium chloride PF 0.9% flush 3-5 mL 3-5 mL Intravenous FLUSH TID vancomycin (VANCOCIN) 2,000 mg in sodium chloride 0.9% (NS) IVPB 2,000 mg Intravenous Q24H* Continuous Infusions: PRN and Respiratory Meds:acetaminophen Q6H PRN, aluminum/magnesium hydroxide Q6H PRN, calcium carbonate Q4H PRN, milk of magnesia (CONC) Q4H PRN, ondansetron Q6H PRN, oxyCODONE Q4H PRN, pancrelipase 20,000 Units/ sodium bicarbonate 650 mg(#) PRN (Catalogue Librarian from Rx), saliva, synthetic PRN, sodium hypochlorite PRN, vancomycin IVPB Q24H* AND vancomycin, pharmacy to manage Per Pharmacy Physical Exam VS: BP 138/84 (BP Source: Arm, Right) | Pulse 118 | Temp 36.5 C (97.7 F) | Ht 160 cm (63") | Wt 97.9 kg (215 lb 12.8 oz) | LMP 01/14/2013 | SpO2 94% | BMI 38.23 kg/m General: Patient appears stated age, in no acute distress HEENT: Normocephalic, atraumatic Neck: No thyroidmegaly Cardiovascular: Well perfused Pulmonary: Unlabored respirations Extremities: No cyanosis, clubbing, or edema Skin: Warm and dry Psychiatric: Appropriate mood and affect Musculoskeletal: No atrophy, mild edema rle, s/p hemipelvectomy on left with dressings in place Neurologic: Antigravity strength in all extremities Psych: Flat affect Therapy Notes & Labs Reviewed. Ravi Pride DO * Howard Encarnacion MD - 02/28/2018 1:52 PM CDT Formatting of this note may be different from the original. Infectious Diseases Progress Note Today's Date: 02/28/2018 Admission Date: 01/14/2018 Assessment: Fever /9 off ab ( stopped 02/15) Likely source is wound infection of hemipelvectomy swab with enterobacter/acinetobacter, polymicrobial Low grade fever 01/21-improved/resolved and then recurrent 01/26 w high grade fever off abtx - Eschar of wound w/fat necrosis, ongoing sweats, no other new s/s -01/21 UA- 2-10 WBC, no culture -01/21 BC neg -01/21 KUB- -01/24- plastic eval of wounds- no surgical intervention given lyphedematous tissue, wound team, ongoing areas of dehiscence/eschar -01/26 BC- coag neg (peripheral) , neg PIC cult -01/26 UA - 0-2 WBC - urine culture neg -low grade temp 01/30 - 01/31 BC X 2 neg Non-healing surgical wounds 01/31- Hyperbaric tx started, ongoing wound care and WV Coag neg staph bacteremia- likely contaminant 01/26 PIC- neg 01/26 BC peripheral- Coag neg 01/31 BC line and peripheral - neg Transaminitis-improved 01/24 - LFT elevated 104/97 01/25 LFT improved 41/68 # GBS bacteremia w sepsis- source suspected left hip wound, less likely pna - Fever and leukocytosis began 12/20/17 - 4/3 L lower lobe infiltrate - read as atelectasis - 12/20 C. diff negative - 12/23 Bcx / set group B streptococcus; source seems most likely intra-pelvic; / bcx negative - CT pelvis 12/25: "Ill-defined fluid and air along the anterior margin of the surgical site away from the drain tip. However, no discrete drainable fluid collection is noted. - OR 01/10 for wound eval - no sign of infection - posterior wound starting to granulate, WV started # Candiduria-resolved - 12/21/17 UA: wbc 2-10, negative nitrite, 1+ luukocytes, Culture > 100,000 Liliana sp - Sensitivities not done, unsure if fluconazole susceptible; repeat urine culture negative 12/28 but improved with micafungin so is suspicion for fluconazole resistance - Treating given indwelling melchor and inability to remove melchor d/t recent bladder repair - ? Candidal intertrigo - groin/mons - Cath change in OR 01/10 - no bladder leak at that time - Micafungin course completed 01/16 # s/p hemipelvectomy for Chondrosarcoma - 11/25/17 MRI: a large lesion throughout the entire left hemipelvis that appeared to be centered within the ilium - 11/30/17 open biopsy: Chondrosarcoma - 11/26/17 CT: few small pulmonary nodules. will resect the masses in the chest later - admission 12/13/17- - 12/14/17: left hemipelvectomy, jamil sacrectomy. Complicated with bladder and urethral injury. Added Cystoscopy with left ureteral stent insertion, Bladder neck repair, Urethroplasty and repair of urethral injury, Vaginal closure. - Stool saturating wound. Diverting colostomy done 12/30. - 01/06 CT: left hemipelvectomy, edema w/in the operative bed- not changed except sl more gas, more focal gas/fluid alonger anterior/inferior and superior surgical margins. # DVT - 11/30/17 IVC filter for DVT within the external iliac vein # Obese # HTN # DM # 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 # Depression # Generalized pain # abx allergy - allergic history to Cephalexin 'years ago' with skin rash and hot flash - tolerated Penicillin when she had dental caries -tolerates carbpenem Recommendations: Fever is likely from surgical wound infection, noted UC with E coli but has no dysuria continue vanc for now, will change the ertapenem to meropenem Would reconsult with plastic to reexamine the wound for the possible need for debridement monitor labs for toxicity Complexity of medical decision making is high due to the multi-system nature of the infectious disease process with concerns including but not limited to complexity of the patient's underlying illnesses, the identification and sensitivities of the organisms being treated, the potential for antimicrobial toxicities and drug-drug interactions, concerns regarding immunologic function, and interplay of other issues. Extensive pelvic wound/infection, fever Interval History Fever is better feels ok, no vomiting, Denies cough, no SOB no chest pain no diarrhea or increased colostomy output No abd pain denies dysuria no new rash wound is draining ++ especially with PT,about the same wbc ok, creat ok UC with E coli Antimicrobial Start date End date Erythromycin 12/13 Neomycin 12/13 12/13 Polymyxin B 12/14 12/14 Ertapenem 01/10-01/24; 02/08-02/15 Restart 02/26 02/28 Gentamycin 12/14 12/15 Clindamycin 12/14 12/22 Pip/tazo 12/22 01/10 Fluconazole 12/22 12/30 Vancomycin 12/23 12/27 Micafungin 12/30 01/16 Vanco 01/26-02/15 Restart 02/26 Meropenem 01/26-02/08 Restart 02/28 Estimated Creatinine Clearance: 79.5 mL/min (based on SCr of 0.92 mg/dL). Medications Scheduled Meds: aspirin chewable tablet 81 mg 81 mg Oral QDAY buPROPion (WELLBUTRIN) tablet 100 mg 100 mg Oral TID busPIRone (BUSPAR) tablet 30 mg 30 mg Oral BID collagenase (SANTYL) topical ointment Topical QDAY docusate (COLACE) capsule 100 mg 100 mg Oral BID ferrous sulfate (FEOSOL, FEROSUL) tablet 325 mg 325 mg Oral TID w/ meals gabapentin (NEURONTIN) capsule 600 mg 600 mg Oral Q6H insulin aspart U-100 (NOVOLOG FLEXPEN) injection PEN 0-6 Units 0-6 Units Subcutaneous ACHS lactobacillus rhamnosus GG (CULTURELLE) 15 billion cell capsule 1 capsule 1 capsule Oral BID w/meals levothyroxine (SYNTHROID) tablet 200 mcg 200 mcg Oral QDAY before breakfast meropenem (MERREM) 2 g in sodium chloride 0.9% (NS) 140 mL IVPB 2 g Intravenous Q8H* metFORMIN (GLUCOPHAGE) tablet 1,000 mg 1,000 mg Oral BID w/meals nortriptyline (PAMELOR) capsule 75 mg 75 mg Oral QHS oxyCODONE (ROXICODONE, OXY-IR) tablet 15 mg 15 mg Oral Once per day on Wed oxyCODONE SR (OXYCONTIN) tablet 10 mg 10 mg Oral BID pantoprazole DR (PROTONIX) tablet 40 mg 40 mg Oral QDAY() rivaroxaban (XARELTO) tablet 20 mg 20 mg Oral QDAY w/breakfast simvastatin (ZOCOR) tablet 20 mg 20 mg Oral QHS sitaGLIPtin (JANUVIA) tablet 100 mg 100 mg Oral QDAY sodium chloride PF 0.9% flush 3-5 mL 3-5 mL Intravenous FLUSH TID sodium chloride PF 0.9% flush 3-5 mL 3-5 mL Intravenous FLUSH TID vancomycin (VANCOCIN) 2,000 mg in sodium chloride 0.9% (NS) IVPB 2,000 mg Intravenous Q24H* Continuous Infusions: PRN and Respiratory Meds:acetaminophen Q6H PRN, aluminum/magnesium hydroxide Q6H PRN, calcium carbonate Q4H PRN, milk of magnesia (CONC) Q4H PRN, ondansetron Q6H PRN, oxyCODONE Q4H PRN, pancrelipase 20,000 Units/ sodium bicarbonate 650 mg(#) PRN (Catalogue Librarian from Rx), saliva, synthetic PRN, sodium hypochlorite PRN, vancomycin IVPB Q24H* AND vancomycin, pharmacy to manage Per Pharmacy Physical Examination Vital Signs: Last Vital Signs: 24 Hour Range BP: 135/74 (02/28 1224) Temp: 36.5 C (97.7 F) (02/28 1224) Pulse: 121 (02/28 1224) Respirations: 18 PER MINUTE (02/28 1224) SpO2: 97 % (02/28 1224) O2 Delivery: None (Room Air) (02/29 1224) BP: (111-139)/(68-74) Temp: [36.4 C (97.6 F)-37.7 C (99.9 F)] Pulse: [109-127] Respirations: [18 PER MINUTE-20 PER MINUTE] SpO2: [92 %-97 %] O2 Delivery: None (Room Air) General appearance: alert, oriented, no distress Throat dry no thrush neck no adenopathy Lungs: clear bilaterally Heart: Regular rhythm, no murmur Abdomen: Soft, normal bowel sounds Ext: s/p left hemipelvectomy; RLE no edema; L wounds with some purulent drainage from ant and post wound, Wound is very extensive and deep in post part ant part has an escar, no surrounding erythema, still has edema ++ RLE edema 1 + exam stable 02/28 Lab Review Hematology Recent Labs 02/27/18 0450 02/28/18 0808 WBC 8.9 9.3 HGB 6.7* 7.9* HCT 20.6* 24.4* PLTCT 503* 528* Chemistry Recent Labs 02/28/18 0808 NA 137 K 4.4 CL 103 CO2 25 BUN 11 CR 0.92 GFR >60 GLU 108* CA 8.5 Microbiology, Radiology and other Diagnostics Review Microbiology data reviewed. Pertinent radiology reviewed Howard Encarnacion MD ID * Tamara Reilly - 02/28/2018 1:36 PM CDT Patient has left the unit at this time [facility] * Ruth Allen MD - 02/28/2018 7:47 AM CDT Formatting of this note may be different from the original. ATTESTATION I personally performed the banuelos portions of the E/M visit, discussed case with resident and concur with resident documentation of history, physical exam, assessment, and treatment plan unless otherwise noted. Labs and VS reviewed and still low grade fevers ~99. Urine culture <100,000 E.coli. Wound cultures with ENTEROBACTER and ACINETOBACTER. ID following, edel holt today. Will f/u Plastics for further surgical options for wound. Hyperbaric oxygen completes tomorrow. Tentative rehab discharge date is 03/02 and although she has made great progress , she is very near achieving her rehab goals and likely near the end of her time on the rehab unit. Patient remains medically stable to participate in IRF program. Staff name: Ruth Allen MD Date: 02/28/2018 Physical Medicine & Rehabilitation Progress Note Today's Date: 02/28/2018 Admission Date: 01/14/2018 LOS: 45 days Insurance: [facility] Principal Problem: Left hip amputation status Active Problems: Chondrosarcoma (HCC) Acute blood loss as cause of postoperative anemia Depression Anxiety DM (diabetes mellitus) (HCC) 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 Chronic pain Post-op pain Bacteremia Amputated left leg (HCC) Candiduria Assessment/Plan: Beata Lema a 52 y.o.femalead[facility] the following issues : 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 Patient will need a modified schedule of 15 hours over 7 days to accommodate HBOT schedule. Goals: household mobility at wheelchair level mod I Tentative discharge date: 03/02/18 Recommended therapy after discharge: home health OT/PT Recommended equipment: Hospital bed, wheelchair/cushion, slideboard, ramp - Patient requires hospital bed at discharge. Patient requires positioning of the body in ways not feasible with ordinary beds to in order to alleviate pain. Patient requires frequent repositioning of the body and/or has an immediate need for change in body position. - Due to patients functional limitations they require a manual wheelchair for independent mobility in the home. A therapy evaluation was completed during their inpatient rehab stay to assess the most appropriate wheelchair for the patient. Daily Functional Update: Transfers Device Sit to Stand Transfer: Assistive Device: Roller Walker (02/27/2018 4:00 PM) No Data Recorded Gait Device Assist Required Distance Gait: Assistive Device: Roller Walker;Wheelchair Follow (02/27/2018 4:00 PM) No Data Recorded Gait Distance: 8 feet (3') (02/27/2018 4:00 PM) Toileting Assist Required Equipment Toilet Transfer Toileting Assist: Maximum Assist (02/27/2018 10:00 AM) No Data Recorded No Data Recorded Dressing Lower Body LE Dressing Assist: Total Assist (02/27/2018 10:00 AM) Chrondrosarcoma s/p hemipelvectomy and hemisacrectomy Lymphedema wound and residual limb >Plan on 20 treatment of HBOT M-F in late afternoon >Wound vac d/c on 02/24. Continue wound care per wound care recs >Will f/u with plastic surgery if she will need to go back to OR around time of discharge Post-op pain in setting of chronic pain Phantom limb pain, neuropathic pain >Tylenol, oxycontin 10mg BID and oxycodone 15mg q3h prn. Lidoderm patch prn. > Continue nortriptyline 75mg QHS > Continue gabapentin 600mg Q6h Tremors - improving -Likely related to gabapentin >improved with decreased gabapentin to 600mg Q6h >Continue oxycodone 15mg q3h prn (decreased 02/25) s/p diverting colostomy - Stool saturating wound. Diverting colostomy done 12/30 >wound/ostomy consulted, working on education with nursing Bladder injury, recent repair - bladder and urethral injuries during hemipelvectomy on 12/14/17 - underwent cystoscopy with left ureteral stent insertion, Bladder neck repair, Urethroplasty and repair of urethral injury, Vaginal closure > Per ortho/urology/plastics/Wound care ok to d/c melchor. > Melchor D/c 02/18, no signs of retention with x3 PVR's > Continue timed voids and bladder training Chest lesions (metastases?) - 11/26/17 CT: few small pulmonary nodules. >repeat CT chest 02/25 with stable nodules, most likely scars or granulomas per report GBS bacteremia w/ sepsis due to left hip wound - Completed course of abx 01/23 ertapenem - Multiple fevers 01/26, started Vanc/Meropenem 09/21 bcx contaminated, Repeat blood cx's 01/31 negative -PICC d/c 02/18 per ID recs (infection risk) -Multiple fevers 02/26/18 (>101 F) >Restarted Erta/Vanc >Re-consulted ID, appreciate recs >F/u urine and blood cx DVT - 11/30/17 IVC filter for DVT within the external iliac vein >cont Xarelto ABLA, stable - Transfusion 01/15, 01/28, and 02/27 1U PRBC - monitor labs T2DM - A1c 6.5%, controlled - CAMP TENDER regimen: Metformin thousand milligrams twice a day, [id number] mg daily (resume at discharge) > Correction factor > Metformin 1000mg BID, Januvia 100mg daily 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 - CAMP TENDER 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 daily - TSH 2.1 this admission >levothyroxine increased 200 mcg on 01/26 >She will need repeat thyroid function tests in 6-8 weeks (~March 08) Major depressive disorder, recurrent, moderate CLAUDIA Adjustment disorder with mixed anxiety and depressed mood > continue CAMP TENDER Wellbutrin and buspar, started on nortriptyline this admission Nutrition -Corpak d/c 02/02 > weekly prealbumin and albumin - remains low > D/c corpak 02/02 > Continue current diet with protein supplementation HLD: holding CAMP TENDER statin Insomnia: nortriptyline 75mg qhs DVT Prophylaxis:Xarelto, will discharge on it Ravi Pride, Subjective NEON. Pt resting in bed when seen on rounds. Pt distressed about swelling in her RLE which we have discussed with her in the past. No other complaints when seen. Objective Vital Signs: Last Filed Vital Signs: 24 Hour Range BP: 114/72 (02/29 724) Temp: 37.7 C (99.9 F) (02/29 724) Pulse: 114 (02/29 724) Respirations: 18 PER MINUTE (02/29 724) SpO2: 92 % (02/29 724) O2 Delivery: None (Room Air) (02/29 724) BP: (105-139)/(62-79) Temp: [36.4 C (97.6 F)-37.7 C (99.9 F)] Pulse: [109-127] Respirations: [18 PER MINUTE-20 PER MINUTE] SpO2: [92 %-100 %] O2 Delivery: None (Room Air) Intensity Pain Scale 0-10 (Pain 1): 9 (02/28/18 0616) Vitals: 02/26/18 0548 02/27/18 0634 02/28/18 0418 Weight: 94.9 kg (209 lb 3.5 oz) 97.8 kg (215 lb 11.2 oz) 97.5 kg (215 lb) Intake/Output Summary: (Last 24 hours) Intake/Output Summary (Last 24 hours) at 02/28/18 0747 Last data filed at 02/28/18 0418 Gross per 24 hour Intake 565 ml Output 750 ml Net -185 ml Stool Occurrence: 1 Oral Diet Order: Diabetic [id number] Kcal/day (60 g Carb/meal, 30 g Carb/HS snack ) Last BM Date: 02/27/18 Lab: Results for orders placed or performed during the hospital encounter of (from the past 24 hour(s)) CULTURE-WOUND/TISSUE/FLUID(AEROBIC ONLY)W/SENSITIVITY Collection Time: 02/27/18 10:12 AM # # Low-High Battery Name ROUTINE CULTURE Specimen Description SWAB WD Special Requests NONE Direct Gram Stain RARE NEUTROPHILS FEW GRAM NEGATIVE RODS FEW GRAM POSITIVE COCCI Culture Report Status GRAM STAIN Collection Time: 02/27/18 10:12 AM # # Low-High Battery Name GRAM STAIN Specimen Description SWAB Special Requests NONE Gram Stain RARE NEUTROPHILS FEW GRAM NEGATIVE RODS FEW GRAM POSITIVE COCCI Report Status FINAL 02/27/2018 POC GLUCOSE Collection Time: 02/27/18 12:09 PM # # Low-High Glucose, POC 201 (H) 70 - 100 MG/DL POC GLUCOSE Collection Time: 02/27/18 4:55 PM # # Low-High Glucose, POC 124 (H) 70 - 100 MG/DL POC GLUCOSE Collection Time: 02/27/18 8:31 PM # # Low-High Glucose, POC 127 (H) 70 - 100 MG/DL POC GLUCOSE Collection Time: 02/28/18 7:19 AM # # Low-High Glucose, POC 95 70 - 100 MG/DL Scheduled Meds: aspirin chewable tablet 81 mg 81 mg Oral QDAY buPROPion (WELLBUTRIN) tablet 100 mg 100 mg Oral TID busPIRone (BUSPAR) tablet 30 mg 30 mg Oral BID collagenase (SANTYL) topical ointment Topical QDAY docusate (COLACE) capsule 100 mg 100 mg Oral BID ertapenem (INVANZ) IVP 1 g 1 g Intravenous Q24H* ferrous sulfate (FEOSOL, FEROSUL) tablet 325 mg 325 mg Oral TID w/ meals gabapentin (NEURONTIN) capsule 600 mg 600 mg Oral Q6H insulin aspart U-100 (NOVOLOG FLEXPEN) injection PEN 0-6 Units 0-6 Units Subcutaneous ACHS lactobacillus rhamnosus GG (CULTURELLE) 15 billion cell capsule 1 capsule 1 capsule Oral BID w/meals levothyroxine (SYNTHROID) tablet 200 mcg 200 mcg Oral QDAY before breakfast metFORMIN (GLUCOPHAGE) tablet 1,000 mg 1,000 mg Oral BID w/meals nortriptyline (PAMELOR) capsule 75 mg 75 mg Oral QHS oxyCODONE (ROXICODONE, OXY-IR) tablet 15 mg 15 mg Oral Once per day on Wed oxyCODONE SR (OXYCONTIN) tablet 10 mg 10 mg Oral BID pantoprazole DR (PROTONIX) tablet 40 mg 40 mg Oral QDAY(21) rivaroxaban (XARELTO) tablet 20 mg 20 mg Oral QDAY w/breakfast simvastatin (ZOCOR) tablet 20 mg 20 mg Oral QHS sitaGLIPtin (JANUVIA) tablet 100 mg 100 mg Oral QDAY sodium chloride PF 0.9% flush 3-5 mL 3-5 mL Intravenous FLUSH TID sodium chloride PF 0.9% flush 3-5 mL 3-5 mL Intravenous FLUSH TID vancomycin (VANCOCIN) 2,000 mg in sodium chloride 0.9% (NS) IVPB 2,000 mg Intravenous Q24H* Continuous Infusions: PRN and Respiratory Meds:acetaminophen Q6H PRN, aluminum/magnesium hydroxide Q6H PRN, calcium carbonate Q4H PRN, milk of magnesia (CONC) Q4H PRN, ondansetron Q6H PRN, oxyCODONE Q4H PRN, pancrelipase 20,000 Units/ sodium bicarbonate 650 mg(#) PRN (Catalogue Librarian from Rx), saliva, synthetic PRN, sodium hypochlorite PRN, vancomycin IVPB Q24H* AND vancomycin, pharmacy to manage Per Pharmacy Physical Exam VS: BP 114/72 (BP Source: Arm, Right) | Pulse 114 | Temp 37.7 C (99.9 F) | Ht 160 cm (63") | Wt 97.5 kg (215 lb) | LMP 01/14/2013 | SpO2 92% | BMI 38.09 kg/m General: Patient appears stated age, in no acute distress HEENT: Normocephalic, atraumatic Neck: No thyroidmegaly Cardiovascular: Well perfused Pulmonary: Unlabored respirations Extremities: No cyanosis, clubbing, or edema Skin: Warm and dry Psychiatric: Appropriate mood and affect Musculoskeletal: No atrophy, mild edema rle, s/p hemipelvectomy on left with dressings in place Neurologic: Antigravity strength in all extremities Psych: Flat affect Therapy Notes & Labs Reviewed. DO Adam Boyce John C, DO - 02/27/2018 8:49 AM CDT Formatting of this note may be different from the original. Physical Medicine & Rehabilitation Progress Note Today's Date: 02/27/2018 Admission Date: 01/14/2018 LOS: 44 days Insurance: [facility] Principal Problem: Left hip amputation status Active Problems: Chondrosarcoma (HCC) Acute blood loss as cause of postoperative anemia Depression Anxiety DM (diabetes mellitus) (HCC) 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 Chronic pain Post-op pain Bacteremia Amputated left leg (HCC) Candiduria Assessment/Plan: Beata Lema a 52 y.o.femalead[facility]18with the following issues : 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 Patient will need a modified schedule of 15 hours over 7 days to accommodate HBOT schedule. Goals: household mobility at wheelchair level mod I Tentative discharge date: 03/02/18 Recommended therapy after discharge: home health OT/PT Recommended equipment: Hospital bed, wheelchair/cushion, slideboard, ramp - Patient requires hospital bed at discharge. Patient requires positioning of the body in ways not feasible with ordinary beds to in order to alleviate pain. Patient requires frequent repositioning of the body and/or has an immediate need for change in body position. - Due to patients functional limitations they require a manual wheelchair for independent mobility in the home. A therapy evaluation was completed during their inpatient rehab stay to assess the most appropriate wheelchair for the patient. Daily Functional Update: Transfers Device Sit to Stand Transfer: Assistive Device: Roller Walker;Hand Hold Assist (02/26/2018 4:04 PM) No Data Recorded Gait Device Assist Required Distance Gait: Assistive Device: Roller Walker;Wheelchair Follow (02/26/2018 4:04 PM) No Data Recorded Gait Distance: 6 feet (02/26/2018 4:04 PM) Toileting Assist Required Equipment Toilet Transfer Toileting Assist: Maximum Assist (02/26/2018 10:30 AM) No Data Recorded No Data Recorded Dressing Lower Body LE Dressing Assist: Total Assist (02/26/2018 10:30 AM) Chrondrosarcoma s/p hemipelvectomy and hemisacrectomy Lymphedema wound and residual limb >Plan on 20 treatment of HBOT M-F in late afternoon >Wound vac d/c on 02/24. Continue wound care per wound care recs Post-op pain in setting of chronic pain Phantom limb pain, neuropathic pain >Tylenol, oxycontin 10mg BID and oxycodone 15mg q3h prn. Lidoderm patch prn. > Continue nortriptyline 75mg QHS > Continue gabapentin 600mg Q6h Tremors - improving -Likely related to gabapentin >improved with decreased gabapentin to 600mg Q6h >reduce oxycodone 15mg q3h prn s/p diverting colostomy - Stool saturating wound. Diverting colostomy done 12/30 >wound/ostomy consulted, working on education with nursing Bladder injury, recent repair - bladder and urethral injuries during hemipelvectomy on 12/14/17 - underwent cystoscopy with left ureteral stent insertion, Bladder neck repair, Urethroplasty and repair of urethral injury, Vaginal closure > Per ortho/urology/plastics/Wound care ok to d/c melchor. > Melchor D/c 02/18, no signs of retention with x3 PVR's > Continue timed voids and bladder training Chest lesions (metastases?) - 11/26/17 CT: few small pulmonary nodules. >Per CTS ok to repeat CT chest once discharged on a outpatient basis GBS bacteremia w/ sepsis due to left hip wound - Completed course of abx 01/23 ertapenem - Multiple fevers 01/26, started Vanc/Meropenem 09/21 bcx contaminated, Repeat blood cx's 01/31 negative -PICC d/c 02/18 per ID recs (infection risk) > IV Abx d/c 02/15 -Fever on 02/26 and had as ID for further recommendations and we are continuing IV abx -Continue fluids and will give 1 unit PRBC today DVT - 11/30/17 IVC filter for DVT within the external iliac vein >cont Xarelto ABLA, stable - Transfusion 01/15 and 01/28 1U PRBC - monitor labs T2DM - A1c 6.5%, controlled - CAMP TENDER regimen: Metformin thousand milligrams twice a day, [id number] mg daily (resume at discharge) > Correction factor > Metformin 1000mg BID, Januvia 100mg daily 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 - CAMP TENDER 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 daily - TSH 2.1 this admission >levothyroxine increased 200 mcg on 01/26 >She will need repeat thyroid function tests in 6-8 weeks (~March 08) Major depressive disorder, recurrent, moderate CLAUDIA Adjustment disorder with mixed anxiety and depressed mood > continue CAMP TENDER Wellbutrin and buspar, started on nortriptyline this admission Nutrition -Corpak d/c 02/02 > weekly prealbumin and albumin - remains low > D/c corpak 02/02 > Continue current diet with protein supplementation HLD: holding CAMP TENDER statin Insomnia: nortriptyline 75mg qhs DVT Prophylaxis:Xarelto, will discharge on it No change to plan DO Hussain Vick Patient seen resting comfortably at bedside this morning without any signs of acute distress. No significant events noted overnight by nursing staff. Patient denies headache, chest pain, shortness of breath, abdominal pain, or myalgia. Objective Vital Signs: Last Filed Vital Signs: 24 Hour Range BP: 105/65 (02/27 805) Temp: 36.8 C (98.3 F) (02/27 805) Pulse: 113 (02/27 805) Respirations: 20 PER MINUTE (02/27 805) SpO2: 92 % (02/27 805) O2 Delivery: None (Room Air) (02/27 805) BP: (104-149)/(54-82) Temp: [36.8 C (98.3 F)-38.7 C (101.7 F)] Pulse: [108-129] Respirations: [18 PER MINUTE-20 PER MINUTE] SpO2: [92 %-97 %] O2 Delivery: None (Room Air) Intensity Pain Scale 0-10 (Pain 1): 6 (02/26/18 0900) Vitals: 02/25/18 0621 02/26/18 0548 02/27/18 0634 Weight: 95 kg (209 lb 6.4 oz) 94.9 kg (209 lb 3.5 oz) 97.8 kg (215 lb 11.2 oz) Intake/Output Summary: (Last 24 hours) Intake/Output Summary (Last 24 hours) at 02/27/18 0849 Last data filed at 02/27/18 0712 Gross per 24 hour Intake 120 ml Output 1300 ml Net -1180 ml Stool Occurrence: 1 Oral Diet Order: Diabetic 1026-4997 Kcal/day (60 g Carb/meal, 30 g Carb/HS snack ) Last BM Date: 02/26/18 Lab: Results for orders placed or performed during the hospital encounter of (from the past 24 hour(s)) POC GLUCOSE Collection Time: 02/26/18 11:59 AM # # Low-High Glucose, POC 163 (H) 70 - 100 MG/DL POC GLUCOSE Collection Time: 02/26/18 4:55 PM # # Low-High Glucose, POC 202 (H) 70 - 100 MG/DL CULTURE-BLOOD W/SENSITIVITY Collection Time: 02/26/18 5:40 PM # # Low-High Battery Name BLOOD CULTURE Specimen Description BLOOD NO SITE INDICATED Special Requests NONE Culture NO GROWTH 1 DAY Report Status CULTURE-BLOOD W/SENSITIVITY Collection Time: 02/26/18 5:48 PM # # Low-High Battery Name BLOOD CULTURE Specimen Description BLOOD NO SITE INDICATED Special Requests NONE Culture NO GROWTH 1 DAY Report Status LACTIC ACID (BG - RAPID LACTATE) Collection Time: 02/26/18 6:30 PM # # Low-High Lactic Acid,BG 3.6 (H) 0.5 - 2.0 MMOL/L POC GLUCOSE Collection Time: 02/26/18 8:46 PM # # Low-High Glucose, POC 156 (H) 70 - 100 MG/DL LACTIC ACID (BG - RAPID LACTATE) Collection Time: 02/26/18 10:07 PM # # Low-High Lactic Acid,BG 3.6 (H) 0.5 - 2.0 MMOL/L CBC AND DIFF Collection Time: 02/27/18 4:50 AM # # Low-High White Blood Cells 8.9 4.5 - 11.0 [...] Basophil Count 0.00 0 - 0.20 K/UL LACTIC ACID (BG - RAPID LACTATE) Collection Time: 02/27/18 4:50 AM # # Low-High Lactic Acid,BG 1.0 0.5 - 2.0 MMOL/L POC GLUCOSE Collection Time: 02/27/18 7:12 AM # # Low-High Glucose, POC 124 (H) 70 - 100 MG/DL URINALYSIS DIPSTICK REFLEX TO CULTURE Collection Time: 02/27/18 7:45 AM # # Low-High Color,UA YELLOW Turbidity,UA CLEAR CLEAR-CLEAR Specific [place]-Urine 1.018 1.003 - 1.035 pH,UA 5.0 5.0 - 8.0 Protein,UA NEG NEG-NEG Glucose,UA NEG NEG-NEG Ketones,UA NEG NEG-NEG Bilirubin,UA NEG NEG-NEG Blood,UA NEG NEG-NEG Urobilinogen,UA NORMAL NORM-NORMAL Nitrite,UA NEG NEG-NEG Leukocytes,UA 1+ (A) NEG-NEG Urine Ascorbic Acid, UA NEG NEG-NEG URINALYSIS MICROSCOPIC REFLEX TO CULTURE Collection Time: 02/27/18 7:45 AM # # Low-High WBCs,UA 10-20 0 - 2 /HPF RBCs,UA 0-2 0 - 3 /HPF Comment,UA Urine submitted for reflex culture if criteria are met:WBC>10, positive nitrite and/or >=1+ leukocyte esterase. If quantity is not sufficient, an addendum will follow. MucousUA TRACE Squamous Epithelial Cells 0-2 0 - 5 Hyaline Cast 0-2 Scheduled Meds: aspirin chewable tablet 81 mg 81 mg Oral QDAY buPROPion (WELLBUTRIN) tablet 100 mg 100 mg Oral TID busPIRone (BUSPAR) tablet 30 mg 30 mg Oral BID collagenase (SANTYL) topical ointment Topical QDAY docusate (COLACE) capsule 100 mg 100 mg Oral BID ertapenem (INVANZ) IVP 1 g 1 g Intravenous Q24H* ferrous sulfate (FEOSOL, FEROSUL) tablet 325 mg 325 mg Oral TID w/ meals gabapentin (NEURONTIN) capsule 600 mg 600 mg Oral Q6H insulin aspart U-100 (NOVOLOG FLEXPEN) injection PEN 0-6 Units 0-6 Units Subcutaneous ACHS lactobacillus rhamnosus GG (CULTURELLE) 15 billion cell capsule 1 capsule 1 capsule Oral BID w/meals levothyroxine (SYNTHROID) tablet 200 mcg 200 mcg Oral QDAY before breakfast metFORMIN (GLUCOPHAGE) tablet 1,000 mg 1,000 mg Oral BID w/meals nortriptyline (PAMELOR) capsule 75 mg 75 mg Oral QHS oxyCODONE (ROXICODONE, OXY-IR) tablet 15 mg 15 mg Oral Once per day on Wed oxyCODONE SR (OXYCONTIN) tablet 10 mg 10 mg Oral BID pantop[address]ole DR (PROTONIX) tablet 40 mg 40 mg Oral QDAY(21) rivaroxaban (XARELTO) tablet 20 mg 20 mg Oral QDAY w/breakfast simvastatin (ZOCOR) tablet 20 mg 20 mg Oral QHS sitaGLIPtin (JANUVIA) tablet 100 mg 100 mg Oral QDAY sodium chloride PF 0.9% flush 3-5 mL 3-5 mL Intravenous FLUSH TID sodium chloride PF 0.9% flush 3-5 mL 3-5 mL Intravenous FLUSH TID vancomycin (VANCOCIN) 2,000 mg in sodium chloride 0.9% (NS) IVPB 2,000 mg Intravenous Q24H* Continuous Infusions: PRN and Respiratory Meds:acetaminophen Q6H PRN, alteplase PRN (Catalogue Librarian from Rx) , aluminum/magnesium hydroxide Q6H PRN, calcium carbonate Q4H PRN, milk of magnesia (CONC) Q4H PRN, ondansetron Q6H PRN, oxyCODONE Q4H PRN, pancrelipase 20 ,000 Units/ sodium bicarbonate 650 mg(#) PRN (Catalogue Librarian from Rx), saliva, synthetic PRN, sodium hypochlorite PRN, vancomycin IVPB Q24H* AND vancomycin, pharmacy to manage Per Pharmacy Physical Exam VS: BP 105/65 (BP Source: Arm, Right) | Pulse 113 | Temp 36.8 C (98.3 F) | Ht 160 cm (63") | Wt 97.8 kg (215 lb 11.2 oz) | LMP 01/14/2013 | SpO2 92% | BMI 38.21 kg/m General: Patient appears stated age, in no acute distress HEENT: Normocephalic, atraumatic Neck: No thyroidmegaly Cardiovascular: Well perfused Pulmonary: Unlabored respirations Extremities: No cyanosis, clubbing, or edema Skin: Warm and dry Psychiatric: Appropriate mood and affect Musculoskeletal: No atrophy, mild edema rle, s/p hemipelvectomy on left with dressings in place Neurologic: Antigravity strength in all extremities Psych: Flat affect Therapy Notes & Labs Reviewed. Priyank Glez DO * Howard Encarnacion MD - 02/27/2018 7:48 AM CDT Formatting of this note may be different from the original. Infectious Diseases Progress Note Today's Date: 02/27/2018 Admission Date: 01/14/2018 Assessment: Fever 6/9 off ab ( stopped 02/15) Likely source is wound infection of hemipelvectomy Low grade fever 01/21-improved/resolved and then recurrent 01/26 w high grade fever off abtx - Eschar of wound w/fat necrosis, ongoing sweats, no other new s/s -01/21 UA- 2-10 WBC, no culture -01/21 BC neg -01/21 KUB- -01/24- plastic eval of wounds- no surgical intervention given lyphedematous tissue, wound team, ongoing areas of dehiscence/eschar -01/26 BC- coag neg (peripheral) , neg PIC cult -01/26 UA - 0-2 WBC - urine culture neg -low grade temp 01/30 - 01/31 BC X 2 neg Non-healing surgical wounds 01/31- Hyperbaric tx started, ongoing wound care and [place] Coag neg staph bacteremia- likely contaminant 01/26 PIC- neg 01/26 BC peripheral- Coag neg 01/31 BC line and peripheral - neg Transaminitis-improved 01/24 - LFT elevated 104/97 01/25 LFT improved 41/68 # GBS bacteremia w sepsis- source suspected left hip wound, less likely pna - Fever and leukocytosis began 12/20/17 - 4/3 L lower lobe infiltrate - read as atelectasis - 12/20 C. diff negative - 12/23 Bcx / set group B streptococcus; source seems most likely intra-pelvic; 12/24 bcx negative - CT pelvis 12/25: "Ill-defined fluid and air along the anterior margin of the surgical site away from the drain tip. However, no discrete drainable fluid collection is noted. - OR 01/10 for wound eval - no sign of infection - posterior wound starting to granulate, [place] started # Candiduria-resolved - 12/21/17 UA: wbc 2-10, negative nitrite, 1+ luukocytes, Culture > 100,000 Liliana sp - Sensitivities not done, unsure if fluconazole susceptible; repeat urine culture negative 12/28 but improved with micafungin so is suspicion for fluconazole resistance - Treating given indwelling melchor and inability to remove melchor d/t recent bladder repair - ? Candidal intertrigo - groin/mons - Cath change in OR 01/10 - no bladder leak at that time - Micafungin course completed 01/16 # s/p hemipelvectomy for Chondrosarcoma - 11/25/17 MRI: a large lesion throughout the entire left hemipelvis that appeared to be centered within the ilium - 11/30/17 open biopsy: Chondrosarcoma - 11/26/17 CT: few small pulmonary nodules. will resect the masses in the chest later - admission 12/13/17- - 12/14/17: left hemipelvectomy, jamil sacrectomy. Complicated with bladder and urethral injury. Added Cystoscopy with left ureteral stent insertion, Bladder neck repair, Urethroplasty and repair of urethral injury, Vaginal closure. - Stool saturating wound. Diverting colostomy done 12/30. - 01/06 CT: left hemipelvectomy, edema w/in the operative bed- not changed except sl more gas, more focal gas/fluid alonger anterior/inferior and superior surgical margins. # DVT - 11/30/17 IVC filter for DVT within the external iliac vein # Obese # HTN # DM # 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 # Depression # Generalized pain # abx allergy - allergic history to Cephalexin 'years ago' with skin rash and hot flash - tolerated Penicillin when she had dental caries -tolerates carbpenem Recommendations: Fever is likely from surgical wound infection agree with ertapenem/vanc, if more fever, would change the ertapenem to either meropenem or Zosyn follow on blood and urine culture I took a swab culture but likely not reliable, if fever resolve then I would ignore the culture results Would reconsult with plastic to reexamine the wound for the possible need for debridement monitor labs for toxicity I spent 35 Minutes on this case, 20 minutes face to face with patient to examine her and [place] her about the causes of fever and treatment plan, the rest is to review her records, previous imaging. Reviewed CT chest from 02/25, Minimal nodular lesions but patient has no resp symptoms at this point, unlikely active pneumonia Interval History fever last evening vomited x 1 Denies cough, no SOB no chest pain no diarrhea or increased colostomy output No abd pain denies dysuria no new rash wound is draining ++ especially with PT, pain in post part of wound is worse wbc around 10, creat ok Antimicrobial Start date End date Erythromycin 12/13 Neomycin 12/13 12/13 Polymyxin B 12/14 12/14 Ertapenem 01/10-01/24; 02/08-02/15 Restart 02/26 Gentamycin 12/14 12/15 Clindamycin 12/14 12/22 Pip/tazo 12/22 01/10 Fluconazole 12/22 12/30 Vancomycin 12/23 12/27 Micafungin 12/30 01/16 Vanco 01/26-02/15 Restart 02/26 Meropenem 01/26 02/08 Estimated Creatinine Clearance: 82.4 mL/min (based on SCr of 0.89 mg/dL). Medications Scheduled Meds: aspirin chewable tablet 81 mg 81 mg Oral QDAY buPROPion (WELLBUTRIN) tablet 100 mg 100 mg Oral TID busPIRone (BUSPAR) tablet 30 mg 30 mg Oral BID collagenase (SANTYL) topical ointment Topical QDAY docusate (COLACE) capsule 100 mg 100 mg Oral BID ertapenem (INVANZ) IVP 1 g 1 g Intravenous Q24H* ferrous sulfate (FEOSOL, FEROSUL) tablet 325 mg 325 mg Oral TID w/ meals gabapentin (NEURONTIN) capsule 600 mg 600 mg Oral Q6H insulin aspart U-100 (NOVOLOG FLEXPEN) injection PEN 0-6 Units 0-6 Units Subcutaneous ACHS lactobacillus rhamnosus GG (CULTURELLE) 15 billion cell capsule 1 capsule 1 capsule Oral BID w/meals levothyroxine (SYNTHROID) tablet 200 mcg 200 mcg Oral QDAY before breakfast metFORMIN (GLUCOPHAGE) tablet 1,000 mg 1,000 mg Oral BID w/meals nortriptyline (PAMELOR) capsule 75 mg 75 mg Oral QHS oxyCODONE (ROXICODONE, OXY-IR) tablet 15 mg 15 mg Oral Once per day on Wed oxyCODONE SR (OXYCONTIN) tablet 10 mg 10 mg Oral BID pantoprazole DR (PROTONIX) tablet 40 mg 40 mg Oral QDAY() rivaroxaban (XARELTO) tablet 20 mg 20 mg Oral QDAY w/breakfast simvastatin (ZOCOR) tablet 20 mg 20 mg Oral QHS sitaGLIPtin (JANUVIA) tablet 100 mg 100 mg Oral QDAY sodium chloride PF 0.9% flush 3-5 mL 3-5 mL Intravenous FLUSH TID sodium chloride PF 0.9% flush 3-5 mL 3-5 mL Intravenous FLUSH TID vancomycin (VANCOCIN) 2,000 mg in sodium chloride 0.9% (NS) IVPB 2,000 mg Intravenous Q24H* Continuous Infusions: PRN and Respiratory Meds:acetaminophen Q6H PRN, alteplase PRN (Catalogue Librarian from Rx) , aluminum/magnesium hydroxide Q6H PRN, calcium carbonate Q4H PRN, milk of magnesia (CONC) Q4H PRN, ondansetron Q6H PRN, oxyCODONE Q4H PRN, pancrelipase 20 ,000 Units/ sodium bicarbonate 650 mg(#) PRN (Catalogue Librarian from Rx), saliva, synthetic PRN, sodium hypochlorite PRN, vancomycin IVPB Q24H* AND vancomycin, pharmacy to manage Per Pharmacy Physical Examination Vital Signs: Last Vital Signs: 24 Hour Range BP: 114/73 (02/27 657) Temp: 36.9 C (98.5 F) (02/27 657) Pulse: 118 (02/27 657) Respirations: 20 PER MINUTE (02/27 657) SpO2: 92 % (02/27 657) O2 Delivery: None (Room Air) (02/27 657) BP: (104-149)/(54-82) Temp: [36.9 C (98.5 F)-38.7 C (101.7 F)] Pulse: [108-129] Respirations: [18 PER MINUTE-20 PER MINUTE] SpO2: [92 %-97 %] O2 Delivery: None (Room Air) General appearance: alert, oriented, no distress Throat dry no thrush neck no adenopathy Lungs: clear bilaterally Heart: Regular rhythm, no murmur Abdomen: Soft, normal bowel sounds Ext: s/p left hemipelvectomy; RLE no edema; L wounds with some purulent drainage from ant and post wound, Wound is very extensive and deep in post part ant part has an escar, no surrounding erythema, still has edema ++ RLE edema 1 + Lab Review Hematology Recent Labs 02/25/18 0852 02/27/18 0450 WBC 9.4 8.9 HGB 8.0* 6.7* HCT 24.2* 20.6* PLTCT 579* 503* Chemistry Recent Labs 02/25/18 0852 NA 138 K 4.1 CL 102 CO2 24 BUN 13 CR 0.89 GFR >60 GLU 134* CA 8.8 Microbiology, Radiology and other Diagnostics Review Microbiology data reviewed. Pertinent radiology reviewed Howard Encarnacion MD ID * Olena Carreon, RN - 02/27/2018 7:12 AM CDT AM labs showed Hgb 6.[address] Pride. * Alisia Zeng RN - 02/27/2018 6:54 AM CDT Temp now at 98.5F. pt resting quietly in bed, will continue with POC. * Alisia Zeng, RN - 02/27/2018 5:25 AM CDT Pt spiked a temp of 100.F. upon assessment pt was warm to touch with a flushed face. Dr Pride notified and said it was OK to give Tylenol since blood cultures were drawn. Order was carried out. Will continue to monitor. * Alisia Zeng, RN - 02/26/2018 10:40 PM CDT Assumed continuity of pt care around 1900. Pt alert and oriented x4 with periods of confusion. Pt denied nausea, shortness of breath pain, or chills. Pt was diaphoretic upon assessment. Earlier labs drawn showed lactic acid of 3.6. Dr. Pride notified and ordered NS bolusx1. A second IV was placed to start Vancomycin. Dr. Pride also ordered lactic acid lab to be redrawn and check pt vitals every 2 hours for the first 6 hours then switch to every 4 hours afterwards. So far vitals are within normal range. Pt still running a low grade temp of 99.2.F. Lactic acid drawn and dispatched to main lab. Pt resting quietly with eyes closed. Will continue with POC and keep Dr. Pride posted of any change. . * Jeana Horvath, PHARMD - 02/26/2018 7:02 PM CDT Formatting of this note may be different from the original. Pharmacy Vancomycin Note Subjective: Beata Kaiser is a 52 y.o. female being treated for sepsis. Objective: Current Vancomycin Orders Medication Dose Route Frequency vancomycin (VANCOCIN) 2,000 mg in sodium chloride 0.9% (NS) IVPB 2,000 mg Intravenous Q24H* And vancomycin, pharmacy to manage 1 each Service Per Pharmacy Day of Vancomycin therapy: 1 Additional Abx: Ertapenem White Blood Cells Date/Time Value Ref Range Status 02/25/2018 0852 9.4 4.5 - 11.0 K/UL Final Creatinine Date/Time Value Ref Range Status 02/25/2018 0852 0.89 0.4 - 1.00 MG/DL Final Blood Urea Nitrogen Date/Time Value Ref Range Status 02/25/2018 0852 13 7 - 25 MG/DL Final Estimated CrCl: ~81 ml/min Intake/Output Summary (Last 24 hours) at 02/26/18 1902 Last data filed at 02/26/18 1819 Gross per 24 hour Intake 120 ml Output 1215 ml Net -1095 ml Actual Weight: 94.9 kg (209 lb 3.5 oz) Dosing BW: 95 kg Assessment: Target levels for this patient: 15-20. Plan: 1. Start vancomycin 2000 mg IV q24h 2. Next scheduled level(s): TBD, likely prior to 4th dose 3. Pharmacy will continue to monitor and adjust therapy as needed. Jeana Horvath, PHARMD 02/26/2018 * Olena Carreon, RN - 02/26/2018 6:48 PM CDT T101.7.Patient said she felt well enough to take PRN Tylenol. Notified Dr. Pride. New orders for VS Q2, IV antibiotics, and STAT lactic acid. Awaiting approval from pharmacy. * Olena Carreon, RN - 02/26/2018 6:17 PM CDT T 100.[address] Pride who gave orders for blood cultures x2, UA, CXR , and VS Q4 hours. Pt complained of feeling nauseous at 1800 and vomited 600mL before Zofran could be administered. Pt able to take Zofran [address] Pride. * Olena Carreon, RN - 02/26/2018 4:17 PM CDT Notified provider of T100.1 and P127. Continue to monitor and notify if T>100.4 * Priyank Glez DO - 02/26/2018 8:44 AM CDT Formatting of this note may be different from the original. Physical Medicine & Rehabilitation Progress Note Today's Date: 02/26/2018 Admission Date: 01/14/2018 LOS: 43 days Insurance: [facility] Principal Problem: Left hip amputation status Active Problems: Chondrosarcoma (HCC) Acute blood loss as cause of postoperative anemia Depression Anxiety DM (diabetes mellitus) (HCC) 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 Chronic pain Post-op pain Bacteremia Amputated left leg (HCC) Candiduria Assessment/Plan: Beata Lema a 52 y.o.female[facility] the following issues : 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 Patient will need a modified schedule of 15 hours over 7 days to accommodate HBOT schedule. Goals: household mobility at wheelchair level mod I Tentative discharge date: 03/02/18 Recommended therapy after discharge: home health OT/PT Recommended equipment: Hospital bed, wheelchair/cushion, slideboard, ramp - Patient requires hospital bed at discharge. Patient requires positioning of the body in ways not feasible with ordinary beds to in order to alleviate pain. Patient requires frequent repositioning of the body and/or has an immediate need for change in body position. - Due to patients functional limitations they require a manual wheelchair for independent mobility in the home. A therapy evaluation was completed during their inpatient rehab stay to assess the most appropriate wheelchair for the patient. Daily Functional Update: Transfers Device Sit to Stand Transfer: Assistive Device: Roller Walker (02/25/2018 9:30 AM) No Data Recorded Gait Device Assist Required Distance Gait: Assistive Device: Wheelchair Follow;Parallel Bars;Roller Walker (02/19/2018 3:14 PM) No Data Recorded Gait Distance: 6 feet (+6, 1 (with roller walker)) (02/19/2018 3:14 PM) Toileting Assist Required Equipment Toilet Transfer Toileting Assist: Maximum Assist (02/23/2018 8:00 AM) No Data Recorded No Data Recorded Dressing Lower Body LE Dressing Assist: Moderate Assist (02/25/2018 8:42 AM) Chrondrosarcoma s/p hemipelvectomy and hemisacrectomy Lymphedema wound and residual limb >Plan on 20 treatment of HBOT M-F in late afternoon >Wound vac d/c on 02/24. Continue wound care per wound care recs Post-op pain in setting of chronic pain Phantom limb pain, neuropathic pain >Tylenol, oxycontin 10mg BID and oxycodone 15mg q3h prn. Lidoderm patch prn. > Continue nortriptyline 75mg QHS > Continue gabapentin 600mg Q6h Tremors - improving -Likely related to gabapentin >improved with decreased gabapentin to 600mg Q6h >reduce oxycodone 15mg q3h prn s/p diverting colostomy - Stool saturating wound. Diverting colostomy done 12/30 >wound/ostomy consulted, working on education with nursing Bladder injury, recent repair - bladder and urethral injuries during hemipelvectomy on 12/14/17 - underwent cystoscopy with left ureteral stent insertion, Bladder neck repair, Urethroplasty and repair of urethral injury, Vaginal closure > Per ortho/urology/plastics/Wound care ok to d/c melchor. > Melchor D/c 02/18, no signs of retention with x3 PVR's > Continue timed voids and bladder training Chest lesions (metastases?) - 11/26/17 CT: few small pulmonary nodules. >Per CTS ok to repeat CT chest once discharged on a outpatient basis GBS bacteremia w/ sepsis due to left hip wound - Completed course of abx 01/23 ertapenem - Multiple fevers 01/26, started Vanc/Meropenem 09/21 bcx contaminated, Repeat blood cx's 01/31 negative -PICC d/c 02/18 per ID recs (infection risk) > IV Abx d/c 02/15 DVT - 11/30/17 IVC filter for DVT within the external iliac vein >cont Xarelto ABLA, stable - Transfusion 01/15 and 01/28 1U PRBC - monitor labs T2DM - A1c 6.5%, controlled - CAMP TENDER regimen: Metformin thousand milligrams twice a day, [id number] mg daily (resume at discharge) > Correction factor > Metformin 1000mg BID, Januvia 100mg daily 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 - CAMP TENDER 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 daily - TSH 2.1 this admission >levothyroxine increased 200 mcg on 01/26 >She will need repeat thyroid function tests in 6-8 weeks (~March 08) Major depressive disorder, recurrent, moderate CLAUDIA Adjustment disorder with mixed anxiety and depressed mood > continue CAMP TENDER Wellbutrin and buspar, started on nortriptyline this admission Nutrition -Corpak d/c 02/02 > weekly prealbumin and albumin - remains low > D/c corpak 02/02 > Continue current diet with protein supplementation HLD: holding CAMP TENDER statin Insomnia: nortriptyline 75mg qhs DVT Prophylaxis:Xarelto, will discharge on it No change to plan Priyank Glez, DO Subjective Patient seen resting comfortably at bedside this morning during dressing change without any signs of acute distress. No significant events noted overnight by nursing staff. Patient denies headache, chest pain, shortness of breath, abdominal pain, or myalgia. Objective Vital Signs: Last Filed Vital Signs: 24 Hour Range BP: 132/68 (02/27 548) Temp: 36.9 C (98.4 F) (02/27 548) Pulse: 117 (02/27 548) Respirations: 18 PER MINUTE (02/27 548) SpO2: 94 % (02/27 548) O2 Delivery: None (Room Air) (02/27 548) BP: (124-132)/(68-69) Temp: [36.9 C (98.4 F)-37.7 C (99.8 F)] Pulse: [117-127] Respirations: [18 PER MINUTE] SpO2: [93 %-94 %] O2 Delivery: None (Room Air) Intensity Pain Scale 0-10 (Pain 1): 8 (02/26/18 0051) Vitals: 02/24/18 0622 02/25/18 0621 02/26/18 0548 Weight: 92.1 kg (203 lb 1.6 oz) 95 kg (209 lb 6.4 oz) 94.9 kg (209 lb 3.5 oz) Intake/Output Summary: (Last 24 hours) Intake/Output Summary (Last 24 hours) at 02/26/18 0844 Last data filed at 02/26/18 0734 Gross per 24 hour Intake 240 ml Output 515 ml Net -275 ml Stool Occurrence: 1 Oral Diet Order: Diabetic [id number] Kcal/day (60 g Carb/meal, 30 g Carb/HS snack ) Last BM Date: 02/25/18 Lab: Results for orders placed or performed during the hospital encounter of (from the past 24 hour(s)) CBC CELLULAR THERAPEUTICS Collection Time: 02/25/18 8:52 AM # # Low-High White Blood Cells 9.4 4.5 - 11.0 K/UL RBC 3.11 (L) 4.0 - 5.0 M/UL Hemoglobin 8.0 (L) 12.0 - 15.0 GM/DL Hematocrit 24.2 (L) 36 - 45 % MCV 77.8 (L) 80 - 100 FL MCH 25.7 (L) 26 - 34 PG MCHC 33.0 32.0 - 36.0 G/DL RDW 20.9 (H) 11 - 15 % Platelet Count 579 (H) 150 - 400 K/UL MPV 6.6 (L) 7 - 11 FL BASIC METABOLIC PANEL CELLULAR THERAPEUTICS Collection Time: 02/25/18 8:52 AM # # Low-High Sodium 138 137 - 147 MMOL/L Potassium 4.1 3.5 - 5.1 MMOL/L Chloride 102 98 - 110 MMOL/L CO2 24 21 - 30 MMOL/L Anion Gap 12 3 - 12 Glucose 134 (H) 70 - 100 MG/DL Blood Urea Nitrogen 13 7 - 25 MG/DL Creatinine 0.89 0.4 - 1.00 MG/DL Calcium 8.8 8.5 - 10.6 MG/DL eGFR Non >60 >60 mL/min eGFR >60 >60 mL/min POC GLUCOSE Collection Time: 02/25/18 11:47 AM # # Low-High Glucose, POC 205 (H) 70 - 100 MG/DL POC GLUCOSE Collection Time: 02/25/18 1:27 PM # # Low-High Glucose, POC 157 (H) 70 - 100 MG/DL POC GLUCOSE Collection Time: 02/25/18 3:15 PM # # Low-High Glucose, POC 138 (H) 70 - 100 MG/DL POC GLUCOSE Collection Time: 02/25/18 5:41 PM # # Low-High Glucose, POC 143 (H) 70 - 100 MG/DL POC GLUCOSE Collection Time: 02/25/18 9:12 PM # # Low-High Glucose, POC 144 (H) 70 - 100 MG/DL POC GLUCOSE Collection Time: 02/26/18 6:59 AM # # Low-High Glucose, POC 101 (H) 70 - 100 MG/DL Scheduled Meds: aspirin chewable tablet 81 mg 81 mg Oral QDAY buPROPion (WELLBUTRIN) tablet 100 mg 100 mg Oral TID busPIRone (BUSPAR) tablet 30 mg 30 mg Oral BID collagenase (SANTYL) topical ointment Topical QDAY docusate (COLACE) capsule 100 mg 100 mg Oral BID ferrous sulfate (FEOSOL, FEROSUL) tablet 325 mg 325 mg Oral TID w/ meals gabapentin (NEURONTIN) capsule 600 mg 600 mg Oral Q6H insulin aspart U-100 (NOVOLOG FLEXPEN) injection PEN 0-6 Units 0-6 Units Subcutaneous ACHS lactobacillus rhamnosus GG (CULTURELLE) 15 billion cell capsule 1 capsule 1 capsule Oral BID w/meals levothyroxine (SYNTHROID) tablet 200 mcg 200 mcg Oral QDAY before breakfast metFORMIN (GLUCOPHAGE) tablet 1,000 mg 1,000 mg Oral BID w/meals nortriptyline (PAMELOR) capsule 75 mg 75 mg Oral QHS oxyCODONE (ROXICODONE, OXY-IR) tablet 15 mg 15 mg Oral Once per day on Wed oxyCODONE SR (OXYCONTIN) tablet 10 mg 10 mg Oral BID pantoprazole DR (PROTONIX) tablet 40 mg 40 mg Oral QDAY(21) rivaroxaban (XARELTO) tablet 20 mg 20 mg Oral QDAY w/breakfast simvastatin (ZOCOR) tablet 20 mg 20 mg Oral QHS sitaGLIPtin (JANUVIA) tablet 100 mg 100 mg Oral QDAY sodium chloride PF 0.9% flush 3-5 mL 3-5 mL Intravenous FLUSH TID Continuous Infusions: PRN and Respiratory Meds:acetaminophen Q6H PRN, alteplase PRN (Catalogue Librarian from Rx) , aluminum/magnesium hydroxide Q6H PRN, calcium carbonate Q4H PRN, milk of magnesia (CONC) Q4H PRN, ondansetron Q6H PRN, oxyCODONE Q4H PRN, pancrelipase 20 ,000 Units/ sodium bicarbonate 650 mg(#) PRN (Catalogue Librarian from Rx), saliva, synthetic PRN, sodium hypochlorite PRN Physical Exam VS: BP 132/68 (BP Source: Arm, Right) | Pulse 117 | Temp 36.9 C (98.4 F) | Ht 160 cm (63") | Wt 94.9 kg (209 lb 3.5 oz) | LMP 01/14/2013 | SpO2 94% | BMI 37.06 kg/m General: Patient appears stated age, in no acute distress HEENT: Normocephalic, atraumatic Neck: No thyroidmegaly Cardiovascular: Well perfused Pulmonary: Unlabored respirations Extremities: No cyanosis, clubbing, or edema Skin: Warm and dry Psychiatric: Appropriate mood and affect Musculoskeletal: No atrophy, mild edema rle, s/p hemipelvectomy on left with dressings in place Neurologic: Antigravity strength in all extremities Psych: Pleasant mood Therapy Notes & Labs Reviewed. Priyank Glez DO * Nneka Garsia RN - 02/25/2018 3:09 PM CDT Formatting of this note may be different from the original. Wound Ostomy Note NAME:Beata Kaiser :1965 AGE: 52 y.o. ADMISSION DATE: 01/14/2018 DAYS ADMITTED: LOS: 42 days Reason for Consult/Visit: wound not pressure Assessment/Plan: Principal Problem: Left hip amputation status Active Problems: Chondrosarcoma (HCC) Acute blood loss as cause of postoperative anemia Depression Anxiety DM (diabetes mellitus) (HCC) 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 Chronic pain Post-op pain Bacteremia Amputated left leg (HCC) Candiduria Wounds (NOT for Pressure Injuries) 11/30/17 0853 Left Buttocks Surgical Incision (Active) 11/30/17 0853 Buttocks Wound Orientation: Left Wound Type: Surgical Incision Wound Type:: Wound Description (Comments Wound Image 02/21/2018 11:40 AM Agree With My Assessment? Yes 02/08/2018 12:00 AM Wound Base Assessment Dressing intact, base not assessed 02/25/2018 3:00 PM Surrounding Skin Assessment Intact 02/25/2018 12:30 PM Wound Site Closure [place] 02/25/2018 12:30 PM Wound Drainage Amount Scant 02/25/2018 12:30 PM Wound Drainage Description Serous 02/25/2018 12:30 PM Wound Dressing Status Intact 02/25/2018 3:00 PM Wound Dressing and / or Treatment Dry Gauze Outers 02/25/2018 12:30 PM Wound Length (cm) (Wound Team Only) 18 cm 02/21/2018 11:40 AM Wound Width (cm) (Wound Team Only) 5 cm 02/21/2018 11:40 AM Wound Depth (cm) (Wound Team Only) 1.5 02/21/2018 11:40 AM Wound Volume (cm^3) (Wound Team Only) 135 cm^3 02/21/2018 11:40 AM Wound Healing % (Wound Team Only) -1185.71 02/21/2018 11:40 AM Number of days: 87 Wounds (NOT for Pressure Injuries) 12/14/17 1748 Left Abdomen Ulcer (not from pressure) (Active) 12/14/17 1748 Abdomen Wound Orientation: Left Wound Type: Ulcer (not from pressure) Wound Type:: Wound Description (Comments): Wound Image 02/21/2018 11:40 AM Agree With My Assessment? Yes 02/08/2018 12:00 AM Wound Base Assessment Dressing intact, base not assessed 02/25/2018 3:00 PM Surrounding Skin Assessment Intact 02/25/2018 12:30 PM Wound Site Closure None 02/25/2018 12:30 PM Wound Drainage Amount Scant 02/25/2018 12:30 PM Wound Drainage Description Serosanguineous 02/25/2018 12:30 PM Wound Dressing Status Intact 02/25/2018 3:00 PM Wound Dressing and / or Treatment Abdominal Pad;Collagenase 02/25/2018 12:30 PM Wound Length (cm) (Wound Team Only) 7.5 cm 02/21/2018 11:40 AM Wound Width (cm) (Wound Team Only) 21 cm 02/21/2018 11:40 AM Wound Depth (cm) (Wound Team Only) 0.2 02/21/2018 11:40 AM Wound Volume (cm^3) (Wound Team Only) 31.5 cm^3 02/21/2018 11:40 AM Wound Healing % (Wound Team Only) -275 02/21/2018 11:40 AM Wound Status (Wound Team Only) Being Treated 02/09/2018 11:40 AM Number of days: 73 Wounds (NOT for Pressure Injuries) 12/30/17 1002 Left;Anterior Surgical Incision stump (Active) 12/30/17 1002 Wound Orientation: Left;Anterior Wound Type: Surgical Incision Wound Type:: stump Wound Description (Comments): Wound Image 02/21/2018 11:40 AM Agree With My Assessment? Yes 02/08/2018 12:00 AM Wound Base Assessment Dressing intact, base not assessed 02/25/2018 3:00 PM Surrounding Skin Assessment Intact 02/25/2018 12:30 PM Wound Site Closure [place] 02/25/2018 12:30 PM Wound Drainage Amount None 02/25/2018 12:30 PM Wound Drainage Description Serosanguineous 02/23/2018 3:00 PM Wound Dressing Status Intact 02/25/2018 3:00 PM Wound Dressing and / or Treatment Dry Gauze Outers 02/25/2018 12:30 PM Wound Length (cm) (Wound Team Only) 19 cm 02/21/2018 11:40 AM Wound Width (cm) (Wound Team Only) 25 cm 02/21/2018 11:40 AM Wound Depth (cm) (Wound Team Only) 0.3 02/21/2018 11:40 AM Wound Volume (cm^3) (Wound Team Only) 142.5 cm^3 02/21/2018 11:40 AM Wound Healing % (Wound Team Only) -317.15 02/21/2018 11:40 AM Number of days: 57 Wounds (NOT for Pressure Injuries) 01/10/18 1100 Hip Surgical Incision (Active) 01/10/18 1100 Hip Wound Orientation: Wound Type: Surgical Incision Wound Type:: Wound Description (Comments): Wound Image 02/21/2018 11:40 AM Agree With My Assessment? Yes 02/08/2018 12:00 AM Wound Base Assessment Dressing intact, base not assessed 02/25/2018 3:00 PM Surrounding Skin Assessment Intact 02/25/2018 12:30 PM Wound Site Closure [place] 02/25/2018 12:30 PM Wound Drainage Amount Large 02/25/2018 12:30 PM Wound Drainage Description Serosanguineous 02/25/2018 12:30 PM Wound Dressing Status Intact 02/25/2018 3:00 PM Wound Dressing and / or Treatment [place];Abdominal Pad;Dry Gauze Outers 2017 12:30 PM Wound Length (cm) (Wound Team Only) 6.5 cm 02/21/2018 11:40 AM Wound Width (cm) (Wound Team Only) 31 cm 02/21/2018 11:40 AM Wound Depth (cm) (Wound Team Only) 9 02/21/2018 11:40 AM Wound Volume (cm^3) (Wound Team Only) 1813.5 cm^3 02/21/2018 11:40 AM Wound Healing % (Wound Team Only) 22.5 02/21/2018 11:40 AM Wound Status (Wound Team Only) Being Treated 02/21/2018 11:40 AM Tunneling in CM (Wound Team Only) 15 cm 02/04/2018 4:00 PM Tunnelling Location 3 02/04/2018 4:00 PM Number of days: 46 Wounds (NOT for Pressure Injuries) 01/10/18 Left;Inner;Posterior Buttocks Surgical Incision (Active) 01/10/18 Buttocks Wound Orientation: Left;Inner;Posterior Wound Type: Surgical Incision Wound Type:: Wound Description (Comments): Wound Image 02/21/2018 11:40 AM Agree With My Assessment? Yes 02/15/2018 9:00 PM Wound Base Assessment Slough;Moist 02/25/2018 3:00 PM Surrounding Skin Assessment [place] 02/25/2018 3:00 PM Wound Site Closure [place] 02/25/2018 3:00 PM Wound Drainage Amount Small 02/25/2018 3:00 PM Wound Drainage Description Serosanguineous 02/25/2018 3:00 PM Wound Dressing Status Changed 02/25/2018 3:00 PM Wound Dressing and / or Treatment Abdominal Pad 02/25/2018 3:00 PM Wound Length (cm) (Wound Team Only) 11.9 cm 02/21/2018 11:40 AM Wound Width (cm) (Wound Team Only) 6 cm 02/21/2018 11:40 AM Wound Depth (cm) (Wound Team Only) 1 02/21/2018 11:40 AM Wound Volume (cm^3) (Wound Team Only) 71.4 cm^3 02/21/2018 11:40 AM Wound Healing % (Wound Team Only) -998.46 02/21/2018 11:40 AM Number of days: 46 Colostomy 12/30/17 1209 Right (Active) 12/30/17 1209 Right Agree With My Assessment? Yes 02/25/2018 1:00 PM Stoma Assessment Clean;Red 02/25/2018 10:00 AM Drainage Description Brown 02/25/2018 10:00 AM Peristomal Skin Assessment Dry;Intact 02/25/2018 10:00 AM Dressing Status Changed/New 02/25/2018 1:00 PM Stoma Miscellaneous Other (Comment) 02/05/2018 8:00 AM Drain Output (ml) 100 ml 02/17/2018 9:42 AM Pt seen today for follow up on wounds and to help rehab staff with education on dressing changes and application of the netting. Some drainage noted on brief, but wound dressings were not saturated. No change in appearance of wounds since discontinuing the wound vac yesterday. Plan is for Dr Calhoun to either do surgery with patient during this hospital stay, or allow her to go home with home health then come back for surgery and short admission. Pt aware of plan and we will touch base Wednesday on next steps. Opal Garsia RN, BSN Wound /Ostomy Team Pager [phone] After Hours Wound/Ostomy team pager [phone] * Hero Camarena - 02/25/2018 1:13 PM CDT 12:45 Attempted follow-up with pt to provide brief therapeutic support. However , pt couldn't be seen due to the presence of another service (likely completing wound care). Will attempt to follow-up with pt at a later time. Hero Camarena, Ph.D. Clinical Psychology Postdoctoral Fellow Pager: [phone] * Loreta Benitez, SANJAY - 02/25/2018 12:18 PM CDT Met with patient to inquire about urine incontinence. Per patient, this urinary incontinence is new this hospitalization. Because the incontinence happens with movement, sneezing or coughing, it appears to be stress incontinence. She states she cannot always tell that she needs to urinate, but that she knows when she is urinating or once she's urinated. Because of this, she feels she will be able to change out of a wet brief rather quickly at home. She states her daughter is a DANCE DIRECTOR and can help her change the brief at home. Patient inquired about placing an indwelling catheter, but after a few minutes, decided she did not want to have the indwelling catheter again. Resources given re: stress incontinence and kegel exercises. Will continue to time void and educate about proper skin care. * Olena Carreon RN - 02/25/2018 12:15 PM CDT Received verbal order per ASHWINI López (Dr. Dey) for chest CT w/ contrast to be done before patient discharges next week. Arranged appointment for today after hyperbaric treatment. Placed 20G IV in left AC. * Ruth Allen MD - 02/25/2018 10:00 AM CDT Formatting of this note may be different from the original. ATTESTATION I personally performed the banuelos portions of the E/M visit, discussed case with resident and concur with resident documentation of history, physical exam, assessment, and treatment plan unless otherwise noted. Labs and VS reviewed and stable. Pt c/o persistent tremors, particularly with transfers. Pain controlled, could be due to high dose opioids and neuropathic agents. Will reduce opioid slightly and monitor. Now off wound vac due to improving wounds. Plastics may do addn'l procedure, will f/u with them. Repeat CT chest per CTS due to nodules, possible mets. Patient remains medically stable to participate in IRF program. My additions to the resident's note are in the text and highlighted in blue. Staff name: Ruth Allen MD Date: 02/25/2018 Physical Medicine & Rehabilitation Progress Note Today's Date: 02/25/2018 Admission Date: 01/14/2018 LOS: 42 days Insurance: [facility] Principal Problem: Left hip amputation status Active Problems: Chondrosarcoma (HCC) Acute blood loss as cause of postoperative anemia Depression Anxiety DM (diabetes mellitus) (HCC) 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 Chronic pain Post-op pain Bacteremia Amputated left leg (HCC) Candiduria Assessment/Plan: Beata Lema a 52 y.o.female[facility] the following issues : 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 Patient will need a modified schedule of 15 hours over 7 days to accommodate HBOT schedule. Goals: household mobility at wheelchair level mod I Tentative discharge date: 03/02/18 Recommended therapy after discharge: home health OT/PT Recommended equipment: Hospital bed, wheelchair/cushion, slideboard, ramp - Patient requires hospital bed at discharge. Patient requires positioning of the body in ways not feasible with ordinary beds to in order to alleviate pain. Patient requires frequent repositioning of the body and/or has an immediate need for change in body position. - Due to patients functional limitations they require a manual wheelchair for independent mobility in the home. A therapy evaluation was completed during their inpatient rehab stay to assess the most appropriate wheelchair for the patient. Daily Functional Update: Transfers Device Sit to Stand Transfer: Assistive Device: Roller Walker (02/23/2018 8:00 AM) No Data Recorded Gait Device Assist Required Distance Gait: Assistive Device: Wheelchair Follow;Parallel Bars;Roller Walker (02/19/2018 3:14 PM) No Data Recorded Gait Distance: 6 feet (+6, 1 (with roller walker)) (02/19/2018 3:14 PM) Toileting Assist Required Equipment Toilet Transfer Toileting Assist: Maximum Assist (02/23/2018 8:00 AM) No Data Recorded No Data Recorded Dressing Lower Body LE Dressing Assist: Total Assist (02/23/2018 8:00 AM) Chrondrosarcoma s/p hemipelvectomy and hemisacrectomy Lymphedema wound and residual limb >Plan on 20 treatment of HBOT M-F in late afternoon >Wound vac d/c on 02/24. Continue wound care per wound care recs Post-op pain in setting of chronic pain Phantom limb pain, neuropathic pain >Tylenol, oxycontin 10mg BID and oxycodone 15mg q3h prn. Lidoderm patch prn. > Continue nortriptyline 75mg QHS > Continue gabapentin 600mg Q6h Tremors - improving -Likely related to gabapentin >improved with decreased gabapentin to 600mg Q6h >reduce oxycodone 15mg q3h prn s/p diverting colostomy - Stool saturating wound. Diverting colostomy done 12/30 >wound/ostomy consulted, working on education with nursing Bladder injury, recent repair - bladder and urethral injuries during hemipelvectomy on 12/14/17 - underwent cystoscopy with left ureteral stent insertion, Bladder neck repair, Urethroplasty and repair of urethral injury, Vaginal closure > Per ortho/urology/plastics/Wound care ok to d/c melchor. > Melchor D/c 02/18, no signs of retention with x3 PVR's > Continue timed voids and bladder training Chest lesions (metastases?) - 11/26/17 CT: few small pulmonary nodules. >Per CTS ok to repeat CT chest once discharged on a outpatient basis - repeat CT chest 02/25 GBS bacteremia w/ sepsis due to left hip wound - Completed course of abx 01/23 ertapenem - Multiple fevers 01/26, started Vanc/Meropenem 09/21 bcx contaminated, Repeat blood cx's 01/31 negative -PICC d/c 02/18 per ID recs (infection risk) > IV Abx d/c 02/15 DVT - 11/30/17 IVC filter for DVT within the external iliac vein >cont Xarelto ABLA, stable - Transfusion 01/15 and 01/28 1U PRBC - monitor labs T2DM - A1c 6.5%, controlled - CAMP TENDER regimen: Metformin thousand milligrams twice a day, [id number] mg daily (resume at discharge) > Correction factor > Metformin 1000mg BID, Januvia 100mg daily 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 - CAMP TENDER 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 daily - TSH 2.1 this admission >levothyroxine increased 200 mcg on 01/26 >She will need repeat thyroid function tests in 6-8 weeks (~March 08) Major depressive disorder, recurrent, moderate CLAUDIA Adjustment disorder with mixed anxiety and depressed mood > continue CAMP TENDER Wellbutrin and buspar, started on nortriptyline this admission Nutrition -Corpak d/c 02/02 > weekly prealbumin and albumin - remains low > D/c corpak 02/02 > Continue current diet with protein supplementation HLD: holding CAMP TENDER statin Insomnia: nortriptyline 75mg qhs DVT Prophylaxis:Xarelto, will discharge on it Ravi Pride, DO Subjective NEON. Pt sitting in WC working with therapies when seen on rounds. Pt seemed somewhat encouraged that she no longer has a wound vac. Pt complaining of worsening hand tremors. Will decrease her dose of PRN oxycodone as it could be cross reacting with her gabapentin and making her tremor worse. Objective Vital Signs: Last Filed Vital Signs: 24 Hour Range BP: 120/72 (02/26 520) Temp: 36.6 C (97.9 F) (02/26 520) Pulse: 114 (02/26 520) Respirations: 18 PER MINUTE (02/26 520) SpO2: 95 % (02/26 520) O2 Delivery: None (Room Air) (02/26 520) BP: (120-127)/(67-72) Temp: [36.6 C (97.9 F)-36.8 C (98.2 F)] Pulse: [114-121] Respirations: [18 PER MINUTE] SpO2: [95 %-96 %] O2 Delivery: None (Room Air) Intensity Pain Scale 0-10 (Pain 1): Asleep (02/25/18 0000) Vitals: 02/23/18 0647 02/24/18 0622 02/25/18 0621 Weight: 94.3 kg (207 lb 14.4 oz) 92.1 kg (203 lb 1.6 oz) 95 kg (209 lb 6.4 oz) Intake/Output Summary: (Last 24 hours) Intake/Output Summary (Last 24 hours) at 02/25/18 1000 Last data filed at 02/25/18 0900 Gross per 24 hour Intake 540 ml Output 950 ml Net -410 ml Stool Occurrence: 1 Oral Diet Order: Diabetic [id number] Kcal/day (60 g Carb/meal, 30 g Carb/HS snack ) Last BM Date: 02/24/18 Lab: Results for orders placed or performed during the hospital encounter of (from the past 24 hour(s)) POC GLUCOSE Collection Time: 02/24/18 11:35 AM # # Low-High Glucose, POC 119 (H) 70 - 100 MG/DL POC GLUCOSE Collection Time: 02/24/18 1:24 PM # # Low-High Glucose, POC 117 (H) 70 - 100 MG/DL POC GLUCOSE Collection Time: 02/24/18 4:51 PM # # Low-High Glucose, POC 82 70 - 100 MG/DL POC GLUCOSE Collection Time: 02/24/18 8:54 PM # # Low-High Glucose, POC 105 (H) 70 - 100 MG/DL POC GLUCOSE Collection Time: 02/25/18 1:10 AM # # Low-High Glucose, POC 122 (H) 70 - 100 MG/DL POC GLUCOSE Collection Time: 02/25/18 6:51 AM # # Low-High Glucose, POC 98 70 - 100 MG/DL CBC CELLULAR THERAPEUTICS Collection Time: 02/25/18 8:52 AM # # Low-High White Blood Cells 9.4 4.5 - 11.0 K/UL RBC 3.11 (L) 4.0 - 5.0 M/UL Hemoglobin 8.0 (L) 12.0 - 15.0 GM/DL Hematocrit 24.2 (L) 36 - 45 % MCV 77.8 (L) 80 - 100 FL MCH 25.7 (L) 26 - 34 PG MCHC 33.0 32.0 - 36.0 G/DL RDW 20.9 (H) 11 - 15 % Platelet Count 579 (H) 150 - 400 K/UL MPV 6.6 (L) 7 - 11 FL BASIC METABOLIC PANEL CELLULAR THERAPEUTICS Collection Time: 02/25/18 8:52 AM # # Low-High Sodium 138 137 - 147 MMOL/L Potassium 4.1 3.5 - 5.1 MMOL/L Chloride 102 98 - 110 MMOL/L CO2 24 21 - 30 MMOL/L Anion Gap 12 3 - 12 Glucose 134 (H) 70 - 100 MG/DL Blood Urea Nitrogen 13 7 - 25 MG/DL Creatinine 0.89 0.4 - 1.00 MG/DL Calcium 8.8 8.5 - 10.6 MG/DL eGFR Non >60 >60 mL/min eGFR >60 >60 mL/min Scheduled Meds: aspirin chewable tablet 81 mg 81 mg Oral QDAY buPROPion (WELLBUTRIN) tablet 100 mg 100 mg Oral TID busPIRone (BUSPAR) tablet 30 mg 30 mg Oral BID collagenase (SANTYL) topical ointment Topical QDAY docusate (COLACE) capsule 100 mg 100 mg Oral BID ferrous sulfate (FEOSOL, FEROSUL) tablet 325 mg 325 mg Oral TID w/ meals gabapentin (NEURONTIN) capsule 600 mg 600 mg Oral Q6H insulin aspart U-100 (NOVOLOG FLEXPEN) injection PEN 0-6 Units 0-6 Units Subcutaneous ACHS lactobacillus rhamnosus GG (CULTURELLE) 15 billion cell capsule 1 capsule 1 capsule Oral BID w/meals levothyroxine (SYNTHROID) tablet 200 mcg 200 mcg Oral QDAY before breakfast metFORMIN (GLUCOPHAGE) tablet 1,000 mg 1,000 mg Oral BID w/meals nortriptyline (PAMELOR) capsule 75 mg 75 mg Oral QHS oxyCODONE (ROXICODONE, OXY-IR) tablet 15 mg 15 mg Oral Once per day on Wed oxyCODONE SR (OXYCONTIN) tablet 10 mg 10 mg Oral BID pantoprazole DR (PROTONIX) tablet 40 mg 40 mg Oral QDAY(21) rivaroxaban (XARELTO) tablet 20 mg 20 mg Oral QDAY w/breakfast simvastatin (ZOCOR) tablet 20 mg 20 mg Oral QHS sitaGLIPtin (JANUVIA) tablet 100 mg 100 mg Oral QDAY Continuous Infusions: PRN and Respiratory Meds:acetaminophen Q6H PRN, alteplase PRN (Catalogue Librarian from Rx) , aluminum/magnesium hydroxide Q6H PRN, calcium carbonate Q4H PRN, milk of magnesia (CONC) Q4H PRN, ondansetron Q6H PRN, oxyCODONE Q4H PRN, pancrelipase 20 ,000 Units/ sodium bicarbonate 650 mg(#) PRN (Catalogue Librarian from Rx), saliva, synthetic PRN, sodium hypochlorite PRN Physical Exam VS: BP 120/72 (BP Source: Arm, Right) | Pulse 114 | Temp 36.6 C (97.9 F) | Ht 160 cm (63") | Wt 95 kg (209 lb 6.4 oz) | LMP 01/14/2013 | SpO2 95% | BMI 37.09 kg/m Gen: awake, alert, NAD HEENT: NCAT, MMM CV: RRR, no murmur Pulm: CTAB, no w/r Abd: nondistended, nontender, ostomy c/d/i : Indwelling melchor catheter d/c'ed Extremities: mild edema rle, s/p hemipelvectomy on left with dressings in place Psych: Pleasant mood Neuro: mild tremulous at rest, no myclonus noted Therapy Notes & Labs Reviewed. Ravi Pride DO * Omi Manzo, SANJAY - 02/25/2018 1:28 AM CDT Pt found to be diaphoretic and lethargic. BG was 122. Pt stated, "sometimes I get hot flashes, it's ok." Pt given cool, wet washcloth, fan was turned on, and a new gown put on. Pt also time voided into female urinal. Denied any further needs. Will continue to monitor. * Tamara Reilly - 02/24/2018 4:13 PM CDT Patient has returned to the unit at this time via [facility] kike chen. * LeeOlena batres RN - 02/24/2018 2:52 PM CDT Wound team advised to take wound vac off and pack with kerlix, apply abd pads, and secure with tape. Completed dressing change as 1230 before patient went to her treatment. * TommieTamara - 02/24/2018 1:13 PM CDT Patient has left the unit at this time for Hyperbaric [place] via [facility] stretcher van. * Olena Carreon RN - 02/24/2018 10:07 AM CDT Wound vac not sealed properly this morning. Paged wound team and they will come by to see patient. * Ruth Allen MD - 02/24/2018 7:46 AM CDT Formatting of this note may be different from the original. ATTESTATION I personally performed the banuelos portions of the E/M visit, discussed case with resident and concur with resident documentation of history, physical exam, assessment, and treatment plan unless otherwise noted. Staff name: Ruth Allen MD Date: 02/24/2018 Physical Medicine & Rehabilitation Progress Note Today's Date: 02/24/2018 Admission Date: 01/14/2018 LOS: 41 days Insurance: [facility] Principal Problem: Left hip amputation status Active Problems: Chondrosarcoma (HCC) Acute blood loss as cause of postoperative anemia Depression Anxiety DM (diabetes mellitus) (HCC) 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 Chronic pain Post-op pain Bacteremia Amputated left leg (HCC) Candiduria Assessment/Plan: Beata Lema a 52 y.o.femalead[facility]18with the following issues : 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 Patient will need a modified schedule of 15 hours over 7 days to accommodate HBOT schedule. Goals: household mobility at wheelchair level mod I Tentative discharge date: 03/02/18 Recommended therapy after discharge: home health OT/PT Recommended equipment: Hospital bed, wheelchair/cushion, slideboard, ramp - Patient requires hospital bed at discharge. Patient requires positioning of the body in ways not feasible with ordinary beds to in order to alleviate pain. Patient requires frequent repositioning of the body and/or has an immediate need for change in body position. - Due to patients functional limitations they require a manual wheelchair for independent mobility in the home. A therapy evaluation was completed during their inpatient rehab stay to assess the most appropriate wheelchair for the patient. Daily Functional Update: Transfers Device Sit to Stand Transfer: Assistive Device: Roller Walker (02/23/2018 8:00 AM) No Data Recorded Gait Device Assist Required Distance Gait: Assistive Device: Wheelchair Follow;Parallel Bars;Roller Walker (02/19/2018 3:14 PM) No Data Recorded Gait Distance: 6 feet (+6, 1 (with roller walker)) (02/19/2018 3:14 PM) Toileting Assist Required Equipment Toilet Transfer Toileting Assist: Maximum Assist (02/23/2018 8:00 AM) No Data Recorded No Data Recorded Dressing Lower Body LE Dressing Assist: Total Assist (02/23/2018 8:00 AM) Chrondrosarcoma s/p hemipelvectomy and hemisacrectomy Lymphedema wound and residual limb >wound vac in place. Changes M/W/F by wound vac team. PO 15mg oxycodone MWF for [place] changes + lidocaine into sponge during acute hospitalization - weaned off IV pain meds >Plan on 20 treatment of HBOT M-F in late afternoon Post-op pain in setting of chronic pain Phantom limb pain, neuropathic pain >Tylenol, oxycontin 10mg BID and oxycodone 20mg q3h prn. Lidoderm patch prn. > Continue nortriptyline 75mg QHS > Continue gabapentin 600mg Q6h Tremors - improving -Likely related to gabapentin >improved with decreased gabapentin to 600mg Q6h s/p diverting colostomy - Stool saturating wound. Diverting colostomy done 12/30 >wound/ostomy consulted, working on education with nursing Bladder injury, recent repair - bladder and urethral injuries during hemipelvectomy on 12/14/17 - underwent cystoscopy with left ureteral stent insertion, Bladder neck repair, Urethroplasty and repair of urethral injury, Vaginal closure > Per ortho/urology/plastics/Wound care ok to d/c melchor. > Melchor D/c 02/18, no signs of retention with x3 PVR's > Continue timed voids and bladder training Chest lesions (metastases?) - 11/26/17 CT: few small pulmonary nodules. >Per CTS ok to repeat CT chest once discharged on a outpatient basis GBS bacteremia w/ sepsis due to left hip wound - Completed course of abx 01/23 ertapenem - Multiple fevers 01/26, started Vanc/Meropenem 09/21 bcx contaminated, Repeat blood cx's 01/31 negative -PICC d/c 02/18 per ID recs (infection risk) > IV Abx d/c 02/15 DVT - 11/30/17 IVC filter for DVT within the external iliac vein >cont Xarelto ABLA, stable - Transfusion 01/15 and 01/28 1U PRBC - monitor labs T2DM - A1c 6.5%, controlled - CAMP TENDER regimen: Metformin thousand milligrams twice a day, [id number] mg daily (resume at discharge) > Correction factor > Metformin 1000mg BID, Januvia 100mg daily 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 - CAMP TENDER 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 daily - TSH 2.1 this admission >levothyroxine increased 200 mcg on 01/26 >She will need repeat thyroid function tests in 6-8 weeks (~March 08) Major depressive disorder, recurrent, moderate CLAUDIA Adjustment disorder with mixed anxiety and depressed mood > continue CAMP TENDER Wellbutrin and buspar, started on nortriptyline this admission Nutrition -Corpak d/c 02/02 > weekly prealbumin and albumin - remains low > D/c corpak 02/02 > Continue current diet with protein supplementation HLD: holding CAMP TENDER statin Insomnia: nortriptyline 75mg qhs DVT Prophylaxis:Xarelto, will discharge on it Ravi Pride, DO Nixon NOEN. Pt resting in bed when seen this am. Pt happy with the progress with her wound heeling and HBOT. Pain tolerable, therapies going well. Objective Vital Signs: Last Filed Vital Signs: 24 Hour Range BP: 121/75 (02/25 344) Temp: 36.6 C (97.8 F) (02/25 344) Pulse: 111 (02/25 344) Respirations: 18 PER MINUTE (02/25 344) SpO2: 94 % (02/25 344) O2 Delivery: None (Room Air) (02/25 344) BP: (121-122)/(71-75) Temp: [36.6 C (97.8 F)-36.7 C (98.1 F)] Pulse: [110-111] Respirations: [18 PER MINUTE] SpO2: [94 %-98 %] O2 Delivery: None (Room Air) Intensity Pain Scale 0-10 (Pain 1): 6 (02/23/18 2323) Vitals: 02/22/18 0653 02/23/18 0647 02/24/18 0622 Weight: 91.5 kg (201 lb 11.5 oz) 94.3 kg (207 lb 14.4 oz) 92.1 kg (203 lb 1.6 oz ) Intake/Output Summary: (Last 24 hours) Intake/Output Summary (Last 24 hours) at 02/24/18 07 Last data filed at 02/24/18621 Gross per 24 hour Intake 0 ml Output 1730 ml Net -1730 ml Stool Occurrence: 1 Oral Diet Order: Diabetic [id number] Kcal/day (60 g Carb/meal, 30 g Carb/HS snack ) Last BM Date: 02/23/18 Lab: Results for orders placed or performed during the hospital encounter of (from the past 24 hour(s)) CBC CELLULAR THERAPEUTICS Collection Time: 02/23/18 8:00 AM # # Low-High White Blood Cells 10.0 4.5 - 11.0 K/UL RBC 3.04 (L) 4.0 - 5.0 M/UL Hemoglobin 7.7 (L) 12.0 - 15.0 GM/DL Hematocrit 24.0 (L) 36 - 45 % MCV 78.8 (L) 80 - 100 FL MCH 25.2 (L) 26 - 34 PG MCHC 32.1 32.0 - 36.0 G/DL RDW 20.7 (H) 11 - 15 % Platelet Count 567 (H) 150 - 400 K/UL MPV 6.9 (L) 7 - 11 FL BASIC METABOLIC PANEL CELLULAR THERAPEUTICS Collection Time: 02/23/18 8:00 AM # # Low-High Sodium 138 137 - 147 MMOL/L Potassium 4.1 3.5 - 5.1 MMOL/L Chloride 103 98 - 110 MMOL/L CO2 27 21 - 30 MMOL/L Anion Gap 8 3 - 12 Glucose 149 (H) 70 - 100 MG/DL Blood Urea Nitrogen 11 7 - 25 MG/DL Creatinine 0.79 0.4 - 1.00 MG/DL Calcium 8.6 8.5 - 10.6 MG/DL eGFR Non >60 >60 mL/min eGFR >60 >60 mL/min POC GLUCOSE Collection Time: 02/23/18 11:49 AM # # Low-High Glucose, POC 291 (H) 70 - 100 MG/DL POC GLUCOSE Collection Time: 02/23/18 1:14 PM # # Low-High Glucose, POC 244 (H) 70 - 100 MG/DL POC GLUCOSE Collection Time: 02/23/18 3:15 PM # # Low-High Glucose, POC 154 (H) 70 - 100 MG/DL POC GLUCOSE Collection Time: 02/23/18 5:06 PM # # Low-High Glucose, POC 298 (H) 70 - 100 MG/DL POC GLUCOSE Collection Time: 02/23/18 5:07 PM # # Low-High Glucose, POC 146 (H) 70 - 100 MG/DL POC GLUCOSE Collection Time: 02/23/18 9:28 PM # # Low-High Glucose, POC 93 70 - 100 MG/DL POC GLUCOSE Collection Time: 02/24/18 7:07 AM # # Low-High Glucose, POC 70 70 - 100 MG/DL Scheduled Meds: aspirin chewable tablet 81 mg 81 mg Oral QDAY buPROPion (WELLBUTRIN) tablet 100 mg 100 mg Oral TID busPIRone (BUSPAR) tablet 30 mg 30 mg Oral BID collagenase (SANTYL) topical ointment Topical QDAY docusate (COLACE) capsule 100 mg 100 mg Oral BID ferrous sulfate (FEOSOL, FEROSUL) tablet 325 mg 325 mg Oral TID w/ meals gabapentin (NEURONTIN) capsule 600 mg 600 mg Oral Q6H insulin aspart U-100 (NOVOLOG FLEXPEN) injection PEN 0-6 Units 0-6 Units Subcutaneous ACHS lactobacillus rhamnosus GG (CULTURELLE) 15 billion cell capsule 1 capsule 1 capsule Oral BID w/meals levothyroxine (SYNTHROID) tablet 200 mcg 200 mcg Oral QDAY before breakfast metFORMIN (GLUCOPHAGE) tablet 1,000 mg 1,000 mg Oral BID w/meals nortriptyline (PAMELOR) capsule 75 mg 75 mg Oral QHS oxyCODONE (ROXICODONE, OXY-IR) tablet 15 mg 15 mg Oral Once per day on Wed oxyCODONE SR (OXYCONTIN) tablet 10 mg 10 mg Oral BID pantoprazole DR (PROTONIX) tablet 40 mg 40 mg Oral QDAY(21) rivaroxaban (XARELTO) tablet 20 mg 20 mg Oral QDAY w/breakfast simvastatin (ZOCOR) tablet 20 mg 20 mg Oral QHS sitaGLIPtin (JANUVIA) tablet 100 mg 100 mg Oral QDAY Continuous Infusions: PRN and Respiratory Meds:acetaminophen Q6H PRN, alteplase PRN (Catalogue Librarian from Rx) , aluminum/magnesium hydroxide Q6H PRN, calcium carbonate Q4H PRN, milk of magnesia (CONC) Q4H PRN, ondansetron Q6H PRN, oxyCODONE Q4H PRN, pancrelipase 20 ,000 Units/ sodium bicarbonate 650 mg(#) PRN (Catalogue Librarian from Rx), saliva, synthetic PRN, sodium hypochlorite PRN Physical Exam VS: BP 121/75 (BP Source: Arm, Right) | Pulse 111 | Temp 36.6 C (97.8 F) | Ht 160 cm (63") | Wt 92.1 kg (203 lb 1.6 oz) | LMP 01/14/2013 | SpO2 94% | BMI 35.98 kg/m Gen: awake, alert, NAD HEENT: NCAT, MMM CV: RRR, no murmur Pulm: CTAB, no w/r Abd: nondistended, nontender : Indwelling melchor catheter d/c'ed Extremities: mild edema rle, s/p hemipelvectomy on left with dressings and wound vac in place. Psych: Pleasent mood Therapy Notes & Labs Reviewed. DO Adam Boyce Jennifer, RN - 02/23/2018 3:14 PM CDT Formatting of this note may be different from the original. Wound Ostomy Note NAME:Beata Kaiser :1965 AGE: 52 y.o. ADMISSION DATE: 01/14/2018 DAYS ADMITTED: LOS: 40 days Reason for Consult/Visit: wound VAC Assessment/Plan: Principal Problem: Left hip amputation status Active Problems: Chondrosarcoma (HCC) Acute blood loss as cause of postoperative anemia Depression Anxiety DM (diabetes mellitus) (HCC) 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 Chronic pain Post-op pain Bacteremia Amputated left leg (HCC) Candiduria Wounds (NOT for Pressure Injuries) 11/30/17 0853 Left Buttocks Surgical Incision (Active) 11/30/17 0853 Buttocks Wound Orientation: Left Wound Type: Surgical Incision Wound Type:: Wound Description (Comments): Wound Image 02/21/2018 11:40 AM Agree With My Assessment? Yes 02/08/2018 12:00 AM Wound Base Assessment Dry;Eschar;Gallardo 02/23/2018 3:00 PM Surrounding Skin Assessment Intact 02/23/2018 3:00 PM Wound Site Closure [place] 02/23/2018 3:00 PM Wound Drainage Amount Small 02/23/2018 3:00 PM Wound Drainage Description Serous 02/23/2018 3:00 PM Wound Dressing Status Changed 02/23/2018 3:00 PM Wound Dressing and / or Treatment Hydrofera Blue Ready 02/23/2018 3:00 PM Wound Length (cm) (Wound Team Only) 18 cm 02/21/2018 11:40 AM Wound Width (cm) (Wound Team Only) 5 cm 02/21/2018 11:40 AM Wound Depth (cm) (Wound Team Only) 1.5 02/21/2018 11:40 AM Wound Volume (cm^3) (Wound Team Only) 135 cm^3 02/21/2018 11:40 AM Wound Healing % (Wound Team Only) -1185.71 02/21/2018 11:40 AM Number of days: 85 Wounds (NOT for Pressure Injuries) 12/14/17 1748 Left Abdomen Ulcer (not from pressure) (Active) 12/14/17 1748 Abdomen Wound Orientation: Left Wound Type: Ulcer (not from pressure) Wound Type:: Wound Description (Comments): Wound Image 02/21/2018 11:40 AM Agree With My Assessment? Yes 02/08/2018 12:00 AM Wound Base Assessment Moist;[place] 02/23/2018 3:00 PM Surrounding Skin Assessment [place] 02/23/2018 3:00 PM Wound Site Closure None 02/23/2018 3:00 PM Wound Drainage Amount Scant 02/23/2018 3:00 PM Wound Drainage Description Serous 02/23/2018 3:00 PM Wound Dressing Status Changed 02/23/2018 3:00 PM Wound Dressing and / or Treatment Abdominal Pad;Collagenase 02/23/2018 3:00 PM Wound Length (cm) (Wound Team Only) 7.5 cm 02/21/2018 11:40 AM Wound Width (cm) (Wound Team Only) 21 cm 02/21/2018 11:40 AM Wound Depth (cm) (Wound Team Only) 0.2 02/21/2018 11:40 AM Wound Volume (cm^3) (Wound Team Only) 31.5 cm^3 02/21/2018 11:40 AM Wound Healing % (Wound Team Only) -275 02/21/2018 11:40 AM Wound Status (Wound Team Only) Being Treated 02/09/2018 11:40 AM Number of days: 71 Wounds (NOT for Pressure Injuries) 12/20/17 1530 Right;Lower Abdomen Moisture Associated Skin Damage (Active) 12/20/17 1530 Abdomen Wound Orientation: Right;Lower Wound Type: Moisture Associated Skin Damage Wound Type:: Wound Description (Comments): Agree With My Assessment? Yes 02/08/2018 12:00 AM Wound Base Assessment Dressing intact, base not assessed 02/23/2018 7:38 AM Surrounding Skin Assessment Dry;Intact 02/22/2018 9:45 AM Wound Site Closure Open to Air 02/22/2018 9:45 AM Wound Drainage Amount None 02/22/2018 9:45 AM Wound Drainage Description Serosanguineous 02/15/2018 9:00 PM Wound Dressing Status Intact 02/23/2018 7:38 AM Wound Dressing and / or Treatment Interdry [employer] Textile 02/22/2018 9:45 AM Number of days: 65 Wounds (NOT for Pressure Injuries) 12/23/17 1345 Left Labia (Active) 12/23/17 1345 Labia Wound Orientation: Left Wound Type: Wound Type:: Wound Description (Comments): Agree With My Assessment? Yes 02/08/2018 12:00 AM Wound Base Assessment Moist;[place] 02/23/2018 3:00 PM Surrounding Skin Assessment Intact 02/23/2018 3:00 PM Wound Site Closure None 02/23/2018 3:00 PM Wound Drainage Amount Scant 02/23/2018 3:00 PM Wound Drainage Description Serous 02/23/2018 3:00 PM Wound Dressing Status Changed 02/23/2018 3:00 PM Wound Dressing and / or Treatment Collagenase 02/23/2018 3:00 PM Wound Length (cm) (Wound Team Only) 1.5 cm 02/16/2018 3:00 PM Wound Width (cm) (Wound Team Only) 0.5 cm 02/16/2018 3:00 PM Wound Depth (cm) (Wound Team Only) 0.1 02/16/2018 3:00 PM Wound Volume (cm^3) (Wound Team Only) 0.075 cm^3 02/16/2018 3:00 PM Wound Healing % (Wound Team Only) 96 02/16/2018 3:00 PM Number of days: 62 Wounds (NOT for Pressure Injuries) 12/30/17 1002 Left;Anterior Surgical Incision stump (Active) 12/30/17 1002 Wound Orientation: Left;Anterior Wound Type: Surgical Incision Wound Type:: stump Wound Description (Comments): Suture, ceci, telfa and iodine, 4x4, and tegaderm Wound Image 02/21/2018 11:40 AM Agree With My Assessment? Yes 02/08/2018 12:00 AM Wound Base Assessment Eschar;Dry;Black 02/23/2018 3:00 PM Surrounding Skin Assessment Intact 02/23/2018 3:00 PM Wound Site Closure [place] 02/23/2018 3:00 PM Wound Drainage Amount Scant 02/23/2018 3:00 PM Wound Drainage Description Serosanguineous 02/23/2018 3:00 PM Wound Dressing Status Changed 02/23/2018 3:00 PM Wound Dressing and / or Treatment Hydrofera Blue Ready 02/23/2018 3:00 PM Wound Length (cm) (Wound Team Only) 19 cm 02/21/2018 11:40 AM Wound Width (cm) (Wound Team Only) 25 cm 02/21/2018 11:40 AM Wound Depth (cm) (Wound Team Only) 0.3 02/21/2018 11:40 AM Wound Volume (cm^3) (Wound Team Only) 142.5 cm^3 02/21/2018 11:40 AM Wound Healing % (Wound Team Only) -317.15 02/21/2018 11:40 AM Number of days: 55 Wounds (NOT for Pressure Injuries) 01/10/18 1100 Hip Surgical Incision (Active) 01/10/18 1100 Hip Wound Orientation: Wound Type: Surgical Incision Wound Type:: Wound Description (Comments): Wound Image 02/21/2018 11:40 AM Agree With My Assessment? Yes 02/08/2018 12:00 AM Wound Base Assessment Pale;[place];Slough;Granulation;Eschar 02/23/2018 3:00 PM Surrounding Skin Assessment Intact 02/23/2018 3:00 PM Wound Site Closure Ceci;Wound Adhesive Bandage 02/23/2018 3:00 PM Wound Drainage Amount Moderate 02/23/2018 3:00 PM Wound Drainage Description Serosanguineous 02/23/2018 3:00 PM Wound Dressing Status Changed 02/23/2018 3:00 PM Wound Dressing and / or Treatment VAC @ -125 mm/Hg;VAC sponge - black;VAC tx: Continuous, 02/23/2018 3:00 PM Wound Length (cm) (Wound Team Only) 6.5 cm 02/21/2018 11:40 AM Wound Width (cm) (Wound Team Only) 31 cm 02/21/2018 11:40 AM Wound Depth (cm) (Wound Team Only) 9 02/21/2018 11:40 AM Wound Volume (cm^3) (Wound Team Only) 1813.5 cm^3 02/21/2018 11:40 AM Wound Healing % (Wound Team Only) 22.5 02/21/2018 11:40 AM Wound Status (Wound Team Only) Being Treated 02/21/2018 11:40 AM Tunneling in CM (Wound Team Only) 15 cm 02/04/2018 4:00 PM Tunnelling Location 3 02/04/2018 4:00 PM Number of days: 44 Wounds (NOT for Pressure Injuries) 01/10/18 Left;Inner;Posterior Buttocks Surgical Incision (Active) 01/10/18 Buttocks Wound Orientation: Left;Inner;Posterior Wound Type: Surgical Incision Wound Type:: Wound Description (Comments): Wound Image 02/21/2018 11:40 AM Agree With My Assessment? Yes 02/15/2018 9:00 PM Wound Base Assessment Eschar 02/23/2018 3:00 PM Surrounding Skin Assessment Intact 02/23/2018 3:00 PM Wound Site Closure [place] 02/23/2018 3:00 PM Wound Drainage Amount Scant 02/23/2018 3:00 PM Wound Drainage Description Serous 02/23/2018 3:00 PM Wound Dressing Status Changed 02/23/2018 3:00 PM Wound Dressing and / or Treatment Hydrofera Blue Ready 02/23/2018 3:00 PM Wound Length (cm) (Wound Team Only) 11.9 cm 02/21/2018 11:40 AM Wound Width (cm) (Wound Team Only) 6 cm 02/21/2018 11:40 AM Wound Depth (cm) (Wound Team Only) 1 02/21/2018 11:40 AM Wound Volume (cm^3) (Wound Team Only) 71.4 cm^3 02/21/2018 11:40 AM Wound Healing % (Wound Team Only) -998.46 02/21/2018 11:40 AM Number of days: 44 Colostomy 12/30/17 1209 Right (Active) 12/30/17 1209 Right Agree With My Assessment? Yes 02/09/2018 5:00 AM Stoma Assessment Clean;Red 02/23/2018 7:38 AM Drainage Description Brown 02/23/2018 7:38 AM Peristomal Skin Assessment Dry;Intact 02/23/2018 7:38 AM Dressing Status Clean;Dry;Intact 02/23/2018 7:38 AM Stoma Miscellaneous Other (Comment) 02/05/2018 8:00 AM Drain Output (ml) 100 ml 02/17/2018 9:42 AM Pt seen today for wound vac changes. Edema continues to improve. I have not gotten to see patients wound in a few weeks and can tell a big difference in the edema and also decreased redness around wounds. Distal end of flap also continuing to make progress. Still necrotic tissue there and will need surgical intervention, but seeing some changes. Will plan to talk with Dr Calhoun tomorrow to see if he would like to assess the wounds on Wednesday. Procedure: Negative Wound Therapy Dressing Change Anesthesia Type: Not Applicable or None Provider(s) and Role: RN Negative Wound Pressure Device Type: KCI VAC Contact layer: no Wound dimension (length x width x depth, tunneling, undermining):see 02/23 Number of sponges in the wound prior to dressing change: 3 Number of sponges removed from the wound: 3 Type of sponge: Black foam Number of sponges placed in the wound: 2 Nneka Garsia RN Wound base cleaned with normal saline and gauze. Black vac foam applied and secured with adhesive drape. Dressing connected to wound vac with setting of - 125mmhg continuous. Next dressing change planned for 02/25/18 Thank you Opal Garsia RN, BSN Wound /Ostomy Team Pager [phone] After Hours Wound/Ostomy team pager [phone] * Leia Zimmerman - 02/23/2018 2:33 PM CDT CLINICAL NUTRITION Clinical Nutrition Follow-Up Summary Nutrition Assessment of Patient: Malnutrition Assessment: Adequately nourished prior to admission Current Oral Intake: Adequate Estimated Calorie Needs: 1620 (30kcal/kg of dw 54kg) Estimated Protein Needs: 81-92 (1.5-1.7g/kg of dw 54kg) Oral Diet Order: Diabetic 5770-6080 Kcal/day (60 g Carb/meal, 30 g Carb/HS snack ) Oral Supplement: Boost Glucose Control, BID, Prosource 52 yof admitted to [facility] 01/14/18 s/p L hemipelvectomy 12/14 due to pelvic mass/ chondrosarcoma. PMH of DM (A1c 6.5) and depression. Pt with stool soilage issues prohibiting wound healing had colostomy 12/30. TPN was added to enhance nutrition followed by supplemental EN. I&D with wound vac 01/10; continues MWF. Pt continues with hyperbaric treatments for wound healing ; 20 txs planned. EN dc'd 02/02 with pt meeting goals via oral intake x 12+ days. Pt continues to report a good appetite and is eating adequately 3 meals/day. Last 3 meals were not documented due to outside foods, including outing with PT/OT. Pt reported n/ v yesterday s/p outing thought to be related to nausea following hyperbaric. She denied n/v today.Pt reports still not eating much protein at meals. She has not received the Prosource in a few days and is compliant with adding them to day. Encouraged adequate protein for wound healing. Weight is up from admit, so encouraged pt to work more at consuming Prosource vs GC Boost if intakes are adequate. Adjusted needs for pending DC; still increased for wound healing. Spoke with NSG about Prosource need. Pt denied need for DM Diet review. Currently not receiving insulin. On oral meds CAMP TENDER with good control. Metformin and Januvia on board with [facility]. No bowel complaints (+FCD 02/23). Culturelle continues. No other concerns. Will remain at risk for wound healing. DC pending 03/02. Recommendation: Continue current diet. Continue to encourage adequate protein. Note pt is not a big dairy or meat eater and is compliant to add Boost GC and Prosource to day. Spread protein intake out evenly for better absorption. Intervention / Plan: Pt denied need for DM diet review Encourage continued use of supplements if not consuming adequate protein Monitor PO intake, wt, labs, skin, gi, meds, fluids Changed order to Boost PRN Nutrition Diagnosis: Nutrition Diagnosis: Increased nutrient needs, specify: Etiology: protein: demand for wound healing Signs & Symptoms: s/p hemipelvectomy Goals: PO intake to meet >85% nutritional needs Time Frame: Prior to Discharge Status: Met;Ongoing Verbalize understanding of diet Time Frame: Prior to Discharge Status: Met;no longer appropriate Leia Zimmerman RD, LD *[id number] * Ruth Allen MD - 02/23/2018 7:48 AM CDT Formatting of this note may be different from the original. ATTESTATION I personally performed the banuelos portions of the E/M visit, discussed case with resident and concur with resident documentation of history, physical exam, assessment, and treatment plan unless otherwise noted. Labs and VS reviewed and stable. Per wound care nurse, there is improvement in edema and redness, may still need surgical intervention for necrotic tissue. Dr. Calhoun from Plastics to f/u. Per , wound care nurse may not be able to provide needed care. May need to seek out wound clinic near home. Timed voids going better per patient and nursing, cont for now. Melchor was removed 5 days ago. Per d/w rehab team at conference, patient making progress towards goal of mod I with RW, wheelchair, slideboard, hospital bed, ramp, wound vacc. Tentative discharge date 03/02/18 pending progress and wounds. Progress this week, completed LB dressing edge of bed, UB dressing min A, transfers with assist of one with nursing, working on commode transfers, car transfer went well, family training underway. Recommending therapies at time of discharge from rehab. Time spent with patient, majority spent on counseling patient/family and rest on coordination of rehab plan of care: 25 minutes Time spent coordination care/discharge in team huddle/conference: 10 minutes Total time: 35 minutes Staff name: Ruth Allen MD Date: 02/23/2018 Physical Medicine & Rehabilitation Progress Note Today's Date: 02/23/2018 Admission Date: 01/14/2018 LOS: 40 days Insurance: [facility] Principal Problem: Left hip amputation status Active Problems: Chondrosarcoma (HCC) Acute blood loss as cause of postoperative anemia Depression Anxiety DM (diabetes mellitus) (HCC) 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 Chronic pain Post-op pain Bacteremia Amputated left leg (HCC) Candiduria Assessment/Plan: Beata Lema a 52 y.o.female[facility] the following issues : 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 Patient will need a modified schedule of 15 hours over 7 days to accommodate HBOT schedule. Goals: household mobility at wheelchair level mod I Tentative discharge date: 03/02/18 Recommended therapy after discharge: home health OT/PT Recommended equipment: Hospital bed, wheelchair/cushion, slideboard, ramp - Patient requires hospital bed at discharge. Patient requires positioning of the body in ways not feasible with ordinary beds to in order to alleviate pain. Patient requires frequent repositioning of the body and/or has an immediate need for change in body position. - Due to patients functional limitations they require a manual wheelchair for independent mobility in the home. A therapy evaluation was completed during their inpatient rehab stay to assess the most appropriate wheelchair for the patient. Daily Functional Update: Transfers Device Sit to Stand Transfer: Assistive Device: None (02/22/2018 10:00 AM) No Data Recorded Gait Device Assist Required Distance Gait: Assistive Device: Wheelchair Follow;Parallel Bars;Roller Walker (02/19/2018 3:14 PM) No Data Recorded Gait Distance: 6 feet (+6, 1 (with roller walker)) (02/19/2018 3:14 PM) Toileting Assist Required Equipment Toilet Transfer Toileting Assist: Maximum Assist (02/20/2018 3:00 PM) No Data Recorded No Data Recorded Dressing Lower Body LE Dressing Assist: Total Assist (02/22/2018 8:05 AM) Chrondrosarcoma s/p hemipelvectomy and hemisacrectomy Lymphedema wound and residual limb >wound vac in place. Changes M/W/F by wound vac team. PO 15mg oxycodone MWF for [place] changes + lidocaine into sponge during acute hospitalization - weaned off IV pain meds >Plan on 20 treatment of HBOT M-F in late afternoon Post-op pain in setting of chronic pain Phantom limb pain, neuropathic pain >Tylenol, oxycontin 10mg BID and oxycodone 20mg q3h prn. Lidoderm patch prn. > Continue nortriptyline 75mg QHS > Continue gabapentin 600mg Q6h Tremors - improving -Likely related to gabapentin >improved with decreased gabapentin to 600mg Q6h s/p diverting colostomy - Stool saturating wound. Diverting colostomy done 12/30 >wound/ostomy consulted, working on education with nursing Bladder injury, recent repair - bladder and urethral injuries during hemipelvectomy on 12/14/17 - underwent cystoscopy with left ureteral stent insertion, Bladder neck repair, Urethroplasty and repair of urethral injury, Vaginal closure > Per ortho/urology/plastics/Wound care ok to d/c melchor. > Melchor D/c 02/18, no signs of retention with x3 PVR's > Pt continues to have difficulty with timed voids. Will work with therapists and nursing hold of on replacing melchor for now Chest lesions (metastases?) - 11/26/17 CT: few small pulmonary nodules. >Per CTS ok to repeat CT chest once discharged on a outpatient basis GBS bacteremia w/ sepsis due to left hip wound - Completed course of abx 01/23 ertapenem - Multiple fevers 01/26, started Vanc/Meropenem 09/21 bcx contaminated, Repeat blood cx's 01/31 negative -PICC d/c 02/18 per ID recs (infection risk) > IV Abx d/c 02/15 DVT - 11/30/17 IVC filter for DVT within the external iliac vein >cont Xarelto ABLA, stable - Transfusion 01/15 and 01/28 1U PRBC - monitor labs T2DM - A1c 6.5%, controlled - CAMP TENDER regimen: Metformin thousand milligrams twice a day, [id number] mg daily (resume at discharge) > Correction factor > Metformin 1000mg BID, Januvia 100mg daily 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 - CAMP TENDER 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 daily - TSH 2.1 this admission >levothyroxine increased 200 mcg on 01/26 >She will need repeat thyroid function tests in 6-8 weeks (~March 08) Major depressive disorder, recurrent, moderate CLAUDIA Adjustment disorder with mixed anxiety and depressed mood > continue CAMP TENDER Wellbutrin and buspar, started on nortriptyline this admission Nutrition -Corpak d/c 02/02 > weekly prealbumin and albumin - remains low > D/c corpak 02/02 > Continue current diet with protein supplementation HLD: holding CAMP TENDER statin Insomnia: nortriptyline 75mg qhs DVT Prophylaxis:Xarelto, will discharge on it DO Hussain Boyce. Pt sitting at EOB working with therapies when seen this am. Pt continues to be intermittently incontinent with timed voids. She has had continent void and encouraged pt keep trying he bladder function may improve. Pain well controlled this am. Objective Vital Signs: Last Filed Vital Signs: 24 Hour Range BP: 114/65 (02/23 327) Temp: 36.4 C (97.6 F) (02/23 327) Pulse: 104 (02/23 327) Respirations: 18 PER MINUTE (02/23 327) SpO2: 93 % (02/23 327) O2 Delivery: None (Room Air) (02/23 327) BP: (111-126)/(64-66) Temp: [36.4 C (97.6 F)-37 C (98.6 F)] Pulse: [86-116] Respirations: [18 PER MINUTE] SpO2: [93 %-100 %] O2 Delivery: None (Room Air) Intensity Pain Scale 0-10 (Pain 1): 7 (02/22/18 2225) Vitals: 02/21/18 0556 02/22/18 0653 02/23/18 0647 Weight: 91.9 kg (202 lb 9.6 oz) 91.5 kg (201 lb 11.5 oz) 94.3 kg (207 lb 14.4 oz ) Intake/Output Summary: (Last 24 hours) Intake/Output Summary (Last 24 hours) at 02/23/18 0748 Last data filed at 02/23/18 0634 Gross per 24 hour Intake 440 ml Output 1715 ml Net -1275 ml Stool Occurrence: 1 Oral Diet Order: Diabetic [id number] Kcal/day (60 g Carb/meal, 30 g Carb/HS snack ) Last BM Date: 02/22/18 Lab: Results for orders placed or performed during the hospital encounter of (from the past 24 hour(s)) POC GLUCOSE Collection Time: 02/22/18 11:00 AM # # Low-High Glucose, POC 161 (H) 70 - 100 MG/DL POC GLUCOSE Collection Time: 02/22/18 1:29 PM # # Low-High Glucose, POC 153 (H) 70 - 100 MG/DL POC GLUCOSE Collection Time: 02/22/18 3:21 PM # # Low-High Glucose, POC 132 (H) 70 - 100 MG/DL POC GLUCOSE Collection Time: 02/22/18 4:54 PM # # Low-High Glucose, POC 110 (H) 70 - 100 MG/DL POC GLUCOSE Collection Time: 02/22/18 9:29 PM # # Low-High Glucose, POC 149 (H) 70 - 100 MG/DL POC GLUCOSE Collection Time: 02/23/18 6:51 AM # # Low-High Glucose, POC 86 70 - 100 MG/DL Scheduled Meds: aspirin chewable tablet 81 mg 81 mg Oral QDAY buPROPion (WELLBUTRIN) tablet 100 mg 100 mg Oral TID busPIRone (BUSPAR) tablet 30 mg 30 mg Oral BID carbamide peroxide (DEBROX) 6.5 % otic solution 5 drop 5 drop Both Ears BID collagenase (SANTYL) topical ointment Topical QDAY docusate (COLACE) capsule 100 mg 100 mg Oral BID ferrous sulfate (FEOSOL, FEROSUL) tablet 325 mg 325 mg Oral TID w/ meals gabapentin (NEURONTIN) capsule 600 mg 600 mg Oral Q6H insulin aspart U-100 (NOVOLOG FLEXPEN) injection PEN 0-6 Units 0-6 Units Subcutaneous ACHS lactobacillus rhamnosus GG (CULTURELLE) 15 billion cell capsule 1 capsule 1 capsule Oral BID w/meals levothyroxine (SYNTHROID) tablet 200 mcg 200 mcg Oral QDAY before breakfast metFORMIN (GLUCOPHAGE) tablet 1,000 mg 1,000 mg Oral BID w/meals nortriptyline (PAMELOR) capsule 75 mg 75 mg Oral QHS oxyCODONE (ROXICODONE, OXY-IR) tablet 15 mg 15 mg Oral Once per day on Wed oxyCODONE SR (OXYCONTIN) tablet 10 mg 10 mg Oral BID pantoprazole DR (PROTONIX) tablet 40 mg 40 mg Oral QDAY(21) rivaroxaban (XARELTO) tablet 20 mg 20 mg Oral QDAY w/breakfast simvastatin (ZOCOR) tablet 20 mg 20 mg Oral QHS sitaGLIPtin (JANUVIA) tablet 100 mg 100 mg Oral QDAY Continuous Infusions: PRN and Respiratory Meds:acetaminophen Q6H PRN, alteplase PRN (Catalogue Librarian from Rx) , aluminum/magnesium hydroxide Q6H PRN, calcium carbonate Q4H PRN, milk of magnesia (CONC) Q4H PRN, ondansetron (ZOFRAN) IV Q6H PRN, oxyCODONE Q4H PRN, pancrelipase 20,000 Units/ sodium bicarbonate 650 mg(#) PRN (Catalogue Librarian from Rx), sodium hypochlorite PRN Physical Exam VS: BP 114/65 (BP Source: Arm, Right) | Pulse 104 | Temp 36.4 C (97.6 F) | Ht 160 cm (63") | Wt 94.3 kg (207 lb 14.4 oz) | LMP 01/14/2013 | SpO2 93% | BMI 36.83 kg/m Gen: awake, alert, NAD HEENT: NCAT, MMM CV: RRR, no murmur Pulm: CTAB, no w/r Abd: nondistended, nontender : Indwelling melchor catheter d/c'ed Extremities: mild edema rle, s/p hemipelvectomy on left with dressings and wound vac in place. Psych: Pleasent mood Therapy Notes & Labs Reviewed. Ravi Pride DO * Ruth Allen MD - 02/22/2018 7:53 AM CDT Formatting of this note may be different from the original. ATTESTATION I personally performed the banuelos portions of the E/M visit, discussed case with resident and concur with resident documentation of history, physical exam, assessment, and treatment plan unless otherwise noted. Labs and VS reviewed and stable. Still with urinary incontinence - sounds like stress incontinence, but trialing female urinal since last night. Cont to problem solve for urination and toileting needs. Sitting bedside for ADL this morning. Patient remains medically stable to participate in IRF program. Staff name: Ruth Allen MD Date: 02/22/2018 Physical Medicine & Rehabilitation Progress Note Today's Date: 02/22/2018 Admission Date: 01/14/2018 LOS: 39 days Insurance: [facility] Principal Problem: Left hip amputation status Active Problems: Chondrosarcoma (HCC) Acute blood loss as cause of postoperative anemia Depression Anxiety DM (diabetes mellitus) (HCC) 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 Chronic pain Post-op pain Bacteremia Amputated left leg (HCC) Candiduria Assessment/Plan: Beata Lema a 52 y.o.femalead[facility] the following issues : 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 Patient will need a modified schedule of 15 hours over 7 days to accommodate HBOT schedule. Goals: household mobility at wheelchair level mod I Tentative discharge date: 03/02/18 Recommended therapy after discharge: home health OT/PT Recommended equipment: Hospital bed, wheelchair/cushion, slideboard, ramp - Patient requires hospital bed at discharge. Patient requires positioning of the body in ways not feasible with ordinary beds to in order to alleviate pain. Patient requires frequent repositioning of the body and/or has an immediate need for change in body position. - Due to patients functional limitations they require a manual wheelchair for independent mobility in the home. A therapy evaluation was completed during their inpatient rehab stay to assess the most appropriate wheelchair for the patient. Daily Functional Update: Transfers Device Sit to Stand Transfer: Assistive Device: None (02/21/2018 9:30 AM) No Data Recorded Gait Device Assist Required Distance Gait: Assistive Device: Wheelchair Follow;Parallel Bars;Roller Walker (02/19/2018 3:14 PM) No Data Recorded Gait Distance: 6 feet (+6, 1 (with roller walker)) (02/19/2018 3:14 PM) Toileting Assist Required Equipment Toilet Transfer Toileting Assist: Maximum Assist (02/20/2018 3:00 PM) No Data Recorded No Data Recorded Dressing Lower Body LE Dressing Assist: Total Assist (02/21/2018 8:00 AM) Chrondrosarcoma s/p hemipelvectomy and hemisacrectomy Lymphedema wound and residual limb >wound vac in place. Changes M/W/F by wound vac team. PO 15mg oxycodone MWF for [place] changes + lidocaine into sponge during acute hospitalization - weaned off IV pain meds >Plan on 20 treatment of HBOT M-F in late afternoon Post-op pain in setting of chronic pain Phantom limb pain, neuropathic pain >Tylenol, oxycontin 10mg BID and oxycodone 20mg q3h prn. Lidoderm patch prn. > Continue nortriptyline 75mg QHS > Continue gabapentin 600mg Q6h Tremors - improving -Likely related to gabapentin >improved with decreased gabapentin to 600mg Q6h s/p diverting colostomy - Stool saturating wound. Diverting colostomy done 12/30 >wound/ostomy consulted, working on education with nursing Bladder injury, recent repair - bladder and urethral injuries during hemipelvectomy on 12/14/17 - underwent cystoscopy with left ureteral stent insertion, Bladder neck repair, Urethroplasty and repair of urethral injury, Vaginal closure > Per ortho/urology/plastics/Wound care ok to d/c melchor. Will f/u with and wound care > Melchor D/c 02/18, no signs of retention with x3 PVR's > Pt continues to have difficulty with timed voids. Will work with therapists and nursing hold of on replacing melchor for now Chest lesions (metastases?) - 11/26/17 CT: few small pulmonary nodules. >Per CTS ok to repeat CT chest once discharged on a outpatient basis GBS bacteremia w/ sepsis due to left hip wound - Fever and leukocytosis began 12/20/17, Bcx 09/21 positive for GBS on 12/23 - Completed course of abx 01/23 ertapenem - Multiple fevers 01/26 in pm, started Vanc/Meropenem and obtained blood cx x2 and UA/reflex cx - 09/21 bcx contaminated, rest NGTD - Repeat blood cx's 01/31 no growth -PICC d/c 02/18 per ID recs (infection risk) > IV Abx d/c 02/15 DVT - 11/30/17 IVC filter for DVT within the external iliac vein >cont Xarelto ABLA - Transfusion 01/15 and 01/28 1U PRBC - monitor labs T2DM - A1c 6.5%, controlled - CAMP TENDER regimen: Metformin thousand milligrams twice a day, [id number] mg daily (resume at discharge) > Correction factor > Metformin 1000mg BID, Januvia 100mg daily 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 - CAMP TENDER 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 daily - TSH 2.1 this admission >levothyroxine increased 200 mcg on 01/26 >She will need repeat thyroid function tests in 6-8 weeks (~March 08) Major depressive disorder, recurrent, moderate CLAUDIA Adjustment disorder with mixed anxiety and depressed mood > continue CAMP TENDER Wellbutrin and buspar, started on nortriptyline this admission Nutrition -Pt is currently meeting caloric and protein needs -Corpak d/c 02/02 > weekly prealbumin and albumin - remains low > D/c corpak 02/02 > Continue current diet with protein supplementation HLD: holding CAMP TENDER statin Insomnia: nortriptyline 75mg qhs DVT Prophylaxis:Xarelto, will discharge on it Ravi Pride, DO Subjective No acute events overnight. Pt sitting at EOB working with therapies when seen on rounds. Pt continues to have difficulty with urination, tried using female hand urinal overnight with issues. Educated pt that her melchor was in for a long period of time so it will likely take her bladder time to start functioning properly. Will continue current bladder regimen. Objective Vital Signs: Last Filed Vital Signs: 24 Hour Range BP: 111/64 (02/22 541) Temp: 36.7 C (98 F) (02/22 541) Pulse: 106 (02/22 541) Respirations: 18 PER MINUTE (02/22 541) SpO2: 96 % (02/22 541) O2 Delivery: None (Room Air) (02/22 541) BP: (111-117)/(64-90) Temp: [36.7 C (98 F)-36.9 C (98.4 F)] Pulse: [106-120] Respirations: [17 PER MINUTE-18 PER MINUTE] SpO2: [94 %-96 %] O2 Delivery: None (Room Air) Intensity Pain Scale 0-10 (Pain 1): 4 (02/22/18 0739) Vitals: 02/20/18 0348 02/21/18 0556 02/22/18 0653 Weight: 91.4 kg (201 lb 9.1 oz) 91.9 kg (202 lb 9.6 oz) 91.5 kg (201 lb 11.5 oz ) Intake/Output Summary: (Last 24 hours) Intake/Output Summary (Last 24 hours) at 02/22/18 0754 Last data filed at 02/22/18 0541 Gross per 24 hour Intake 1490 ml Output 665 ml Net 825 ml Stool Occurrence: 0 Oral Diet Order: Diabetic 4536-9902 Kcal/day (60 g Carb/meal, 30 g Carb/HS snack ) Last BM Date: 02/21/18 Lab: Results for orders placed or performed during the hospital encounter of (from the past 24 hour(s)) CBC CELLULAR THERAPEUTICS Collection Time: 02/21/18 8:07 AM # # Low-High White Blood Cells 11.1 (H) 4.5 - 11.0 K/UL RBC 3.04 (L) 4.0 - 5.0 M/UL Hemoglobin 7.8 (L) 12.0 - 15.0 GM/DL Hematocrit 23.6 (L) 36 - 45 % MCV 77.5 (L) 80 - 100 FL MCH 25.5 (L) 26 - 34 PG MCHC 32.9 32.0 - 36.0 G/DL RDW 21.2 (H) 11 - 15 % Platelet Count 536 (H) 150 - 400 K/UL MPV 6.6 (L) 7 - 11 FL PREALBUMIN Collection Time: 02/21/18 8:07 AM # # Low-High Prealbumin 9.0 (L) 17 - 34 MG/DL BASIC METABOLIC PANEL CELLULAR THERAPEUTICS Collection Time: 02/21/18 8:07 AM # # Low-High Sodium 136 (L) 137 - 147 MMOL/L Potassium 4.5 3.5 - 5.1 MMOL/L Chloride 101 98 - 110 MMOL/L CO2 27 21 - 30 MMOL/L Anion Gap 8 3 - 12 Glucose 111 (H) 70 - 100 MG/DL Blood Urea Nitrogen 10 7 - 25 MG/DL Creatinine 0.91 0.4 - 1.00 MG/DL Calcium 8.8 8.5 - 10.6 MG/DL eGFR Non >60 >60 mL/min eGFR >60 >60 mL/min POC GLUCOSE Collection Time: 02/21/18 11:37 AM # # Low-High Glucose, POC 166 (H) 70 - 100 MG/DL POC GLUCOSE Collection Time: 02/21/18 1:12 PM # # Low-High Glucose, POC 130 (H) 70 - 100 MG/DL POC GLUCOSE Collection Time: 02/21/18 3:12 PM # # Low-High Glucose, POC 137 (H) 70 - 100 MG/DL POC GLUCOSE Collection Time: 02/21/18 4:54 PM # # Low-High Glucose, POC 118 (H) 70 - 100 MG/DL POC GLUCOSE Collection Time: 02/21/18 9:50 PM # # Low-High Glucose, POC 101 (H) 70 - 100 MG/DL POC GLUCOSE Collection Time: 02/22/18 7:12 AM # # Low-High Glucose, POC 162 (H) 70 - 100 MG/DL Scheduled Meds: aspirin chewable tablet 81 mg 81 mg Oral QDAY buPROPion (WELLBUTRIN) tablet 100 mg 100 mg Oral TID busPIRone (BUSPAR) tablet 30 mg 30 mg Oral BID carbamide peroxide (DEBROX) 6.5 % otic solution 5 drop 5 drop Both Ears BID collagenase (SANTYL) topical ointment Topical QDAY docusate (COLACE) capsule 100 mg 100 mg Oral BID ferrous sulfate (FEOSOL, FEROSUL) tablet 325 mg 325 mg Oral TID w/ meals gabapentin (NEURONTIN) capsule 600 mg 600 mg Oral Q6H insulin aspart U-100 (NOVOLOG FLEXPEN) injection PEN 0-6 Units 0-6 Units Subcutaneous ACHS lactobacillus rhamnosus GG (CULTURELLE) 15 billion cell capsule 1 capsule 1 capsule Oral BID w/meals levothyroxine (SYNTHROID) tablet 200 mcg 200 mcg Oral QDAY before breakfast metFORMIN (GLUCOPHAGE) tablet 1,000 mg 1,000 mg Oral BID w/meals nortriptyline (PAMELOR) capsule 75 mg 75 mg Oral QHS oxyCODONE (ROXICODONE, OXY-IR) tablet 15 mg 15 mg Oral Once per day on Wed oxyCODONE SR (OXYCONTIN) tablet 10 mg 10 [address] Oral BID [address]op[address]ole [address] (PROTONIX) tablet 40 mg 40 mg Oral QDAY(21) rivaroxaban (XARELTO) tablet 20 mg 20 mg Oral QDAY w/breakfast simvastatin (ZOCOR) tablet 20 mg 20 mg Oral QHS sitaGLIPtin (JANUVIA) tablet 100 mg 100 mg Oral QDAY Continuous Infusions: PRN and Respiratory Meds:acetaminophen Q6H PRN, alteplase PRN (Catalogue Librarian from Rx) , aluminum/magnesium hydroxide Q6H PRN, calcium carbonate Q4H PRN, milk of magnesia (CONC) Q4H PRN, ondansetron (ZOFRAN) IV Q6H PRN, oxyCODONE Q4H PRN, pancrelipase 20,000 Units/ sodium bicarbonate 650 mg(#) PRN (Catalogue Librarian from Rx), sodium hypochlorite PRN Physical Exam VS: BP 111/64 (BP Source: Arm, Right) | Pulse 106 | Temp 36.7 C (98 F) | Ht 160 cm (63") | Wt 91.5 kg (201 lb 11.5 oz) | LMP 01/14/2013 | SpO2 96% | BMI 35.73 kg/m Gen: awake, alert, NAD HEENT: NCAT, MMM CV: RRR, no murmur Pulm: CTAB, no w/r Abd: nondistended, nontender : Indwelling melchor catheter d/c'ed Extremities: mild edema rle, s/p hemipelvectomy on left with dressings and wound vac in place. Psych: Pleasent mood Therapy Notes & Labs Reviewed. DO Adam Boyce Misty - 02/21/2018 1:00 PM CDT Patient has left the unit at this time for hyperbaric tx via [facility] van. * Jennifer Diaz RN - 02/21/2018 11:40 AM CDT Formatting of this note may be different from the original. Wound Ostomy Nursing Consult Service NAME:Beata Kaiser :1965 AGE: 52 y.o. ADMISSION DATE: 01/14/2018 DAYS ADMITTED: LOS: 38 days Reason for Visit: wound not pressure and wound VAC Assessment/Plan: Principal Problem: Left hip amputation status Active Problems: Chondrosarcoma (HCC) Acute blood loss as cause of postoperative anemia Depression Anxiety DM (diabetes mellitus) (HCC) 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 Chronic pain Post-op pain Bacteremia Amputated left leg (HCC) Candiduria Wounds (NOT for Pressure Injuries) 11/30/17 0853 Left Buttocks Surgical Incision (Active) 11/30/17 0853 Buttocks Wound Orientation: Left Wound Type: Surgical Incision Wound Type:: Wound Description (Comments): Carlos Manuel Rosales Drain, Sutures, xeroform, 4x4's, and tegaderm. Wound Image 02/21/2018 11:40 AM Wound Base Assessment Black;Eschar;Yellow;Slough 02/21/2018 11:40 AM Surrounding Skin Assessment Dry;Intact 02/21/2018 11:40 AM Wound Site Closure [place] 02/21/2018 11:40 AM Wound Drainage Amount Small 02/21/2018 11:40 AM Wound Drainage Description Gallardo;Serous 02/21/2018 11:40 AM Wound Dressing Status Changed 02/21/2018 11:40 AM Wound Dressing and / or Treatment Hydrofera Blue Ready;Hypafix Tape 02/21/2018 11: 40 AM Wound Length (cm) (Wound Team Only) 18 cm 02/21/2018 11:40 AM Wound Width (cm) (Wound Team Only) 5 cm 02/21/2018 11:40 AM Wound Depth (cm) (Wound Team Only) 1.5 02/21/2018 11:40 AM Wound Volume (cm^3) (Wound Team Only) 135 cm^3 02/21/2018 11:40 AM Wound Healing % (Wound Team Only) -1185.71 02/21/2018 11:40 AM Wounds (NOT for Pressure Injuries) 12/14/17 1748 Left Abdomen Ulcer (not from pressure) (Active) 12/14/17 1748 Abdomen Wound Orientation: Left Wound Type: Ulcer (not from pressure) Wound Type:: Wound Description (Comments): Wound Image 02/21/2018 11:40 AM Wound Base Assessment Moist;Yellow;Slough 02/21/2018 11:40 AM Surrounding Skin Assessment Red;Purple 02/21/2018 11:40 AM Wound Site Closure None 02/21/2018 11:40 AM Wound Drainage Amount Small 02/21/2018 11:40 AM Wound Drainage Description Gall[place] 02/21/2018 11:40 AM Wound Dressing Status Changed 02/21/2018 11:40 AM Wound Dressing and / or Treatment Collagenase;Abdominal Pad 02/21/2018 11:40 AM Wound Length (cm) (Wound Team Only) 7.5 cm 02/21/2018 11:40 AM Wound Width (cm) (Wound Team Only) 21 cm 02/21/2018 11:40 AM Wound Depth (cm) (Wound Team Only) 0.2 02/21/2018 11:40 AM Wound Volume (cm^3) (Wound Team Only) 31.5 cm^3 02/21/2018 11:40 AM Wound Healing % (Wound Team Only) -275 02/21/2018 11:40 AM Wound Status (Wound Team Only) Being Treated 02/09/2018 11:40 AM Wounds (NOT for Pressure Injuries) 12/30/17 1002 Left;Anterior Surgical Incision stump (Active) 12/30/17 1002 Wound Orientation: Left;Anterior Wound Type: Surgical Incision Wound Type:: stump Wound Description (Comments): Suture, ceci, telfa and iodine, 4x4, and tegaderm Wound Image 02/21/2018 11:40 AM Wound Base Assessment Black;Eschar;Gallardo;Slough 02/21/2018 11:40 AM Surrounding Skin Assessment Red 02/21/2018 11:40 AM Wound Site Closure Ceci 02/21/2018 11:40 AM Wound Drainage Amount Small 02/21/2018 11:40 AM Wound Drainage Description Serosanguineous 02/21/2018 11:40 AM Wound Dressing Status Changed 02/21/2018 11:40 AM Wound Dressing and / or Treatment Hydrofera Blue Ready;Hypafix Tape 02/21/2018 11: 40 AM Wound Length (cm) (Wound Team Only) 19 cm 02/21/2018 11:40 AM Wound Width (cm) (Wound Team Only) 25 cm 02/21/2018 11:40 AM Wound Depth (cm) (Wound Team Only) 0.3 02/21/2018 11:40 AM Wound Volume (cm^3) (Wound Team Only) 142.5 cm^3 02/21/2018 11:40 AM Wound Healing % (Wound Team Only) -317.15 02/21/2018 11:40 AM Number of days: 53 Wounds (NOT for Pressure Injuries) 01/10/18 1100 Hip Surgical Incision (Active) 01/10/18 1100 Hip Wound Orientation: Wound Type: Surgical Incision Wound Type:: Wound Description (Comments): XEROFORM, 4X4S, HYPAFIX, WOUND VAC Wound Image 02/21/2018 11:40 AM Wound Base Assessment Moist;Red;Gallardo;Slough 02/21/2018 11:40 AM Surrounding Skin Assessment Intact;[place];Red 02/21/2018 11:40 AM Wound Site Closure Wound Adhesive Bandage 02/21/2018 11:40 AM Wound Drainage Amount Moderate 02/21/2018 11:40 AM Wound Drainage Description Serous 02/21/2018 11:40 AM Wound Dressing Status Changed 02/21/2018 11:40 AM Wound Dressing and / or Treatment VAC sponge - black;VAC tx: Continuous;VAC @ - 125 mm/Hg 02/21/2018 11:40 AM Wound Length (cm) (Wound Team Only) 6.5 cm 02/21/2018 11:40 AM Wound Width (cm) (Wound Team Only) 31 cm 02/21/2018 11:40 AM Wound Depth (cm) (Wound Team Only) 9 02/21/2018 11:40 AM Wound Volume (cm^3) (Wound Team Only) 1813.5 cm^3 02/21/2018 11:40 AM Wound Healing % (Wound Team Only) 22.5 02/21/2018 11:40 AM Wound Status (Wound Team Only) Being Treated 02/21/2018 11:40 AM Tunneling in CM (Wound Team Only) 15 cm 02/04/2018 4:00 PM Wounds (NOT for Pressure Injuries) 01/10/18 Left;Inner;Posterior Buttocks Surgical Incision (Active) 01/10/18 Buttocks Wound Orientation: Left;Inner;Posterior Wound Type: Surgical Incision Wound Type:: Wound Description (Comments): Wound Image 02/21/2018 11:40 AM Wound Base Assessment Moist;Gallardo;[place];Green 02/21/2018 11:40 AM Surrounding Skin Assessment Intact;[place] 02/21/2018 11:40 AM Wound Site Closure None 02/21/2018 11:40 AM Wound Drainage Amount Small 02/21/2018 11:40 AM Wound Drainage Description Gallardo 02/21/2018 11:40 AM Wound Dressing Status Changed 02/21/2018 11:40 AM Wound Dressing and / or Treatment Hydrofera Blue Ready;Hypafix Tape 02/21/2018 11: 40 AM Wound Length (cm) (Wound Team Only) 11.9 cm 02/21/2018 11:40 AM Wound Width (cm) (Wound Team Only) 6 cm 02/21/2018 11:40 AM Wound Depth (cm) (Wound Team Only) 1 02/21/2018 11:40 AM Wound Volume (cm^3) (Wound Team Only) 71.4 cm^3 02/21/2018 11:40 AM Wound Healing % (Wound Team Only) -998.46 02/21/2018 11:40 AM Procedure: Negative Wound Therapy Dressing Change Anesthesia Type: Not Applicable or None Provider(s) and Role: RN Negative Wound Pressure Device Type: KCI VAC Contact layer: None Wound dimension (length x width x depth, tunneling, undermining): See above Number of sponges in the wound prior to dressing change: 3 Number of sponges removed from the wound: 3 Type of sponge: Black foam Number of sponges placed in the wound: 3 - two medium VAC sponges cut into cinammon role spiral to create long packing strips, + 1/3 of medium VAC dressing Jennifer Diaz RN Wound VAC dressing connected to wound VAC with settings of continuous -125mmHg. Next dressing change planned 02/23. Will continue to follow. Jennifer Diaz RN, BSN, CWON Wound/Ostomy Nursing Consult Service Office: [phone] Pager: [phone] Wound/Ostomy Team Pager (After Hours/Weekends): [phone] * Ruth Allen MD - 02/21/2018 11:15 AM CDT Formatting of this note may be different from the original. ATTESTATION I personally performed the banuelos portions of the E/M visit, discussed case with resident and concur with resident documentation of history, physical exam, assessment, and treatment plan unless otherwise noted. Labs and VS reviewed and stable. No fevers over weekend. Melchor removed and no retention. However, is having incontinence prior to being able to transfer on commode. Will have rehab nurse coordinator f/u with patient on possible solutions for timed toileting. May need to reinsert Melchor for wound healing. Patient remains medically stable to participate in IRF program. Staff name: Ruth Allen MD Date: 02/21/2018 Physical Medicine & Rehabilitation Progress Note Today's Date: 02/21/2018 Admission Date: 01/14/2018 LOS: 38 days Insurance: [facility] Principal Problem: Left hip amputation status Active Problems: Chondrosarcoma (HCC) Acute blood loss as cause of postoperative anemia Depression Anxiety DM (diabetes mellitus) (HCC) 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 Chronic pain Post-op pain Bacteremia Amputated left leg (HCC) Candiduria Assessment/Plan: Beata Lema a 52 y.o.femalead[facility]with the following issues : 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 Patient will need a modified schedule of 15 hours over 7 days to accommodate HBOT schedule. Goals: household mobility at wheelchair level mod I Tentative discharge date: 03/02/18 Recommended therapy after discharge: home health OT/PT Recommended equipment: Hospital bed, wheelchair/cushion, slideboard, ramp - Patient requires hospital bed at discharge. Patient requires positioning of the body in ways not feasible with ordinary beds to in order to alleviate pain. Patient requires frequent repositioning of the body and/or has an immediate need for change in body position. - Due to patients functional limitations they require a manual wheelchair for independent mobility in the home. A therapy evaluation was completed during their inpatient rehab stay to assess the most appropriate wheelchair for the patient. Daily Functional Update: Transfers Device Sit to Stand Transfer: Assistive Device: Roller Walker;Hand Hold Assist (02/20/2018 4:00 PM) No Data Recorded Gait Device Assist Required Distance Gait: Assistive Device: Wheelchair Follow;Parallel Bars;Roller Walker (02/19/2018 3:14 PM) No Data Recorded Gait Distance: 6 feet (+6, 1 (with roller walker)) (02/19/2018 3:14 PM) Toileting Assist Required Equipment Toilet Transfer Toileting Assist: Maximum Assist (02/20/2018 3:00 PM) No Data Recorded No Data Recorded Dressing Lower Body LE Dressing Assist: Total Assist (02/20/2018 3:00 PM) Chrondrosarcoma s/p hemipelvectomy and hemisacrectomy Lymphedema wound and residual limb >wound vac in place. Changes M/W/F by wound vac team. PO 15mg oxycodone MWF for [place] changes + lidocaine into sponge during acute hospitalization - weaned off IV pain meds >Plan on 20 treatment of HBOT M-F in late afternoon Post-op pain in setting of chronic pain Phantom limb pain, neuropathic pain >Tylenol, oxycontin 10mg BID and oxycodone 20mg q3h prn. Lidoderm patch prn. > Continue nortriptyline 75mg QHS > Continue gabapentin 600mg Q6h Tremors - improving -Likely related to gabapentin >improved with decreased gabapentin to 600mg Q6h s/p diverting colostomy - Stool saturating wound. Diverting colostomy done 12/30 >wound/ostomy consulted, working on education with nursing Bladder injury, recent repair - bladder and urethral injuries during hemipelvectomy on 12/14/17 - underwent cystoscopy with left ureteral stent insertion, Bladder neck repair, Urethroplasty and repair of urethral injury, Vaginal closure > Per ortho/urology/plastics/Wound care ok to d/c melchor. Will f/u with and wound care > Melchor D/c 02/18, no signs of retention with x3 PVR's > Pt continues to have accidents with q4H timed voids, will continue to monitor but may have put melchor back in Chest lesions (metastases?) - 11/26/17 CT: few small pulmonary nodules. >Per CTS ok to repeat CT chest once discharged on a outpatient basis GBS bacteremia w/ sepsis due to left hip wound - Fever and leukocytosis began 12/20/17, Bcx 09/21 positive for GBS on 12/23 - Completed course of abx 01/23 ertapenem - Multiple fevers 01/26 in pm, started Vanc/Meropenem and obtained blood cx x2 and UA/reflex cx - 09/21 bcx contaminated, rest NGTD - Repeat blood cx's 01/31 no growth -PICC d/c 02/18 per ID recs (infection risk) > IV Abx d/c 02/15 DVT - 11/30/17 IVC filter for DVT within the external iliac vein >cont Xarelto ABLA - Transfusion 01/15 and 01/28 1U PRBC - monitor labs T2DM - A1c 6.5%, controlled - CAMP TENDER regimen: Metformin thousand milligrams twice a day, [id number] mg daily (resume at discharge) > Correction factor > Metformin 1000mg BID, Januvia 100mg daily 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 - CAMP TENDER 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 daily - TSH 2.1 this admission >levothyroxine increased 200 mcg on 01/26 >She will need repeat thyroid function tests in 6-8 weeks (~March 08) Major depressive disorder, recurrent, moderate CLAUDIA Adjustment disorder with mixed anxiety and depressed mood > continue CAMP TENDER Wellbutrin and buspar, started on nortriptyline this admission Nutrition -Pt is currently meeting caloric and protein needs > weekly prealbumin and albumin - remains low > D/c corpak 02/02 > Continue current diet with protein supplementation HLD: holding CAMP TENDER statin Insomnia: nortriptyline 75mg qhs DVT Prophylaxis:Xarelto, will discharge on it Ravi Pride, DO Subjective NEON. Pt resting in bed working with therapies when seen this am. Pt main concern when seen was regarding her timed voids. Pt stated she cannot tell when she has to urinate and has been having a hard time getting to commode for timed voids. Will not replace melchor at this time but may have to replace in near future. Objective Vital Signs: Last Filed Vital Signs: 24 Hour Range BP: 97/66 (02/22 556) Temp: 36.9 C (98.4 F) (02/22 556) Pulse: 117 (02/22 556) Respirations: 18 PER MINUTE (02/22 556) SpO2: 93 % (02/22 556) O2 Delivery: None (Room Air) (02/22 556) BP: (97-124)/(66-75) Temp: [36.6 C (97.8 F)-36.9 C (98.4 F)] Pulse: [117-122] Respirations: [16 PER MINUTE-18 PER MINUTE] SpO2: [93 %-99 %] O2 Delivery: None (Room Air) Intensity Pain Scale 0-10 (Pain 1): 4 (02/21/18 1011) Vitals: 02/18/18 0534 02/20/18 0348 02/21/18 0556 Weight: 90.4 kg (199 lb 3.2 oz) 91.4 kg (201 lb 9.1 oz) 91.9 kg (202 lb 9.6 oz) Intake/Output Summary: (Last 24 hours) Intake/Output Summary (Last 24 hours) at 02/21/18 1115 Last data filed at 02/21/18 0900 Gross per 24 hour Intake 240 ml Output 1000 ml Net -760 ml Stool Occurrence: 0 Oral Diet Order: Diabetic [id number] Kcal/day (60 g Carb/meal, 30 g Carb/HS snack ) Last BM Date: 02/21/18 Lab: Results for orders placed or performed during the hospital encounter of (from the past 24 hour(s)) POC GLUCOSE Collection Time: 02/20/18 11:55 AM # # Low-High Glucose, POC 198 (H) 70 - 100 MG/DL POC GLUCOSE Collection Time: 02/20/18 4:48 PM # # Low-High Glucose, POC 160 (H) 70 - 100 MG/DL POC GLUCOSE Collection Time: 02/20/18 8:46 PM # # Low-High Glucose, POC 112 (H) 70 - 100 MG/DL POC GLUCOSE Collection Time: 02/21/18 6:59 AM # # Low-High Glucose, POC 108 (H) 70 - 100 MG/DL CBC CELLULAR THERAPEUTICS Collection Time: 02/21/18 8:07 AM # # Low-High White Blood Cells 11.1 (H) 4.5 - 11.0 K/UL RBC 3.04 (L) 4.0 - 5.0 M/UL Hemoglobin 7.8 (L) 12.0 - 15.0 GM/DL Hematocrit 23.6 (L) 36 - 45 % MCV 77.5 (L) 80 - 100 FL MCH 25.5 (L) 26 - 34 PG MCHC 32.9 32.0 - 36.0 G/DL RDW 21.2 (H) 11 - 15 % Platelet Count 536 (H) 150 - 400 K/UL MPV 6.6 (L) 7 - 11 FL PREALBUMIN Collection Time: 02/21/18 8:07 AM # # Low-High Prealbumin 9.0 (L) 17 - 34 MG/DL BASIC METABOLIC PANEL CELLULAR THERAPEUTICS Collection Time: 02/21/18 8:07 AM # # Low-High Sodium 136 (L) 137 - 147 MMOL/L Potassium 4.5 3.5 - 5.1 MMOL/L Chloride 101 98 - 110 MMOL/L CO2 27 21 - 30 MMOL/L Anion Gap 8 3 - 12 Glucose 111 (H) 70 - 100 MG/DL Blood Urea Nitrogen 10 7 - 25 MG/DL Creatinine 0.91 0.4 - 1.00 MG/DL Calcium 8.8 8.5 - 10.6 MG/DL eGFR Non >60 >60 mL/min eGFR >60 >60 mL/min Scheduled Meds: aspirin chewable tablet 81 mg 81 mg Oral QDAY buPROPion (WELLBUTRIN) tablet 100 mg 100 mg Oral TID busPIRone (BUSPAR) tablet 30 mg 30 mg Oral BID carbamide peroxide (DEBROX) 6.5 % otic solution 5 drop 5 drop Both Ears BID collagenase (SANTYL) topical ointment Topical QDAY docusate (COLACE) capsule 100 mg 100 mg Oral BID ferrous sulfate (FEOSOL, FEROSUL) tablet 325 mg 325 mg Oral TID w/ meals gabapentin (NEURONTIN) capsule 600 mg 600 mg Oral Q6H insulin aspart U-100 (NOVOLOG FLEXPEN) injection PEN 0-6 Units 0-6 Units Subcutaneous ACHS lactobacillus rhamnosus GG (CULTURELLE) 15 billion cell capsule 1 capsule 1 capsule Oral BID w/meals levothyroxine (SYNTHROID) tablet 200 mcg 200 mcg Oral QDAY before breakfast metFORMIN (GLUCOPHAGE) tablet 1,000 mg 1,000 mg Oral BID w/meals nortriptyline (PAMELOR) capsule 75 mg 75 mg Oral QHS oxyCODONE (ROXICODONE, OXY-IR) tablet 15 mg 15 mg Oral Once per day on Wed oxyCODONE SR (OXYCONTIN) tablet 10 mg 10 mg Oral BID pantoprazole DR (PROTONIX) tablet 40 mg 40 mg Oral QDAY(21) rivaroxaban (XARELTO) tablet 20 mg 20 mg Oral QDAY w/breakfast simvastatin (ZOCOR) tablet 20 mg 20 mg Oral QHS sitaGLIPtin (JANUVIA) tablet 100 mg 100 mg Oral QDAY Continuous Infusions: PRN and Respiratory Meds:acetaminophen Q6H PRN, alteplase PRN (Catalogue Librarian from Rx) , aluminum/magnesium hydroxide Q6H PRN, calcium carbonate Q4H PRN, milk of magnesia (CONC) Q4H PRN, ondansetron (ZOFRAN) IV Q6H PRN, oxyCODONE Q4H PRN, pancrelipase 20,000 Units/ sodium bicarbonate 650 mg(#) PRN (Catalogue Librarian from Rx), sodium hypochlorite PRN Physical Exam VS: BP 97/66 (BP Source: Arm, Left) | Pulse 117 | Temp 36.9 C (98.4 F) | Ht 160 cm (63") | Wt 91.9 kg (202 lb 9.6 oz) | LMP 01/14/2013 | SpO2 93% | BMI 35.89 kg/m Gen: awake, alert, NAD HEENT: NCAT, MMM CV: RRR, no murmur Pulm: CTAB, no w/r Abd: nondistended, nontender : Indwelling melchor catheter d/c'ed Extremities: mild edema rle, s/p hemipelvectomy on left with dressings and wound vac in place. Psych: Pleasent mood Therapy Notes & Labs Reviewed. Ravi Pride DO * Martha Drew RN - 02/21/2018 5:35 AM CDT Patient time void q 4 hours unsuccessful because patient started peeing as soon as sitting at the edge of bed unable to make it to commode. Patient stated "I started peeing when getting up". Patient will benefit from putting melchor back for wound healing and infection prevention. * Sofía Betancourt MD - 02/20/2018 10:20 AM CDT Formatting of this note may be different from the original. 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 Patient will need a modified schedule of 15 hours over 7 days to accommodate HBOT schedule. Goals: household mobility at wheelchair level mod I Tentative discharge date: 03/02/18 Recommended therapy after discharge: home health OT/PT Recommended equipment: Hospital bed, wheelchair/cushion, slideboard, ramp - Patient requires hospital bed at discharge. Patient requires positioning of the body in ways not feasible with ordinary beds to in order to alleviate pain. Patient requires frequent repositioning of the body and/or has an immediate need for change in body position. - Due to patients functional limitations they require a manual wheelchair for independent mobility in the home. A therapy evaluation was completed during their inpatient rehab stay to assess the most appropriate wheelchair for the patient. Daily Functional Update: Transfers Device Sit to Stand Transfer: Assistive Device: Roller Walker (02/19/2018 3:14 PM) No Data Recorded Gait Device Assist Required Distance Gait: Assistive Device: Wheelchair Follow;Parallel Bars;Roller Walker (02/19/2018 3:14 PM) No Data Recorded Gait Distance: 6 feet (+6, 1 (with roller walker)) (02/19/2018 3:14 PM) Toileting Assist Required Equipment Toilet Transfer Toileting Assist: Total Assist (02/09/2018 8:30 AM) No Data Recorded No Data Recorded Dressing Lower Body LE Dressing Assist: Maximum Assist (02/19/2018 12:00 PM) Chrondrosarcoma s/p hemipelvectomy and hemisacrectomy Lymphedema wound and residual limb >wound vac in place. Changes M/W/F by wound vac team. PO 15mg oxycodone MWF for [place] changes + lidocaine into sponge during acute hospitalization - weaned off IV pain meds >Plan on 20 treatment of HBOT M-F in late afternoon Post-op pain in setting of chronic pain Phantom limb pain, neuropathic pain >Tylenol, oxycontin 10mg BID and oxycodone 20mg q3h prn. Lidoderm patch prn. > Continue nortriptyline 75mg QHS > Continue gabapentin 600mg Q6h Tremors - improving -Likely related to gabapentin >improved with decreased gabapentin to 600mg Q6h s/p diverting colostomy - Stool saturating wound. Diverting colostomy done 12/30 >wound/ostomy consulted, working on education with nursing Bladder injury, recent repair - bladder and urethral injuries during hemipelvectomy on 12/14/17 - underwent cystoscopy with left ureteral stent insertion, Bladder neck repair, Urethroplasty and repair of urethral injury, Vaginal closure > Per ortho/urology/plastics/Wound care ok to d/c melchor. Will f/u with and wound care > D/c melchor (02/18) implement bladder scan protocol Chest lesions (metastases?) - 11/26/17 CT: few small pulmonary nodules. >Per CTS ok to repeat CT chest once discharged on a outpatient basis GBS bacteremia w/ sepsis due to left hip wound - Fever and leukocytosis began 12/20/17, Bcx / positive for GBS on 12/23 - Completed course of abx 01/23 ertapenem - Multiple fevers 01/26 in pm, started Vanc/Meropenem and obtained blood cx x2 and UA/reflex cx - 09/21 bcx contaminated, rest NGTD - Repeat blood cx's 01/31 no growth > IV Abx d/c 02/15 > Will d/c PICC line (02/18) DVT - 11/30/17 IVC filter for DVT within the external iliac vein >cont Xarelto ABLA - Transfusion 01/15 and 01/28 1U PRBC - monitor labs T2DM - A1c 6.5%, controlled - CAMP TENDER regimen: Metformin thousand milligrams twice a day, [id number] mg daily (resume at discharge) > Correction factor > Metformin 1000mg BID, Januvia 100mg daily 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 - CAMP TENDER 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 daily - TSH 2.1 this admission >levothyroxine increased 200 mcg on 01/26 >She will need repeat thyroid function tests in 6-8 weeks (~March 08) Major depressive disorder, recurrent, moderate CLAUDIA Adjustment disorder with mixed anxiety and depressed mood > continue CAMP TENDER Wellbutrin and buspar, started on nortriptyline this admission Nutrition -Pt is currently meeting caloric and protein needs > weekly prealbumin and albumin - remains low > D/c corpak 02/02 > Continue current diet with protein supplementation HLD: holding CAMP TENDER statin Insomnia: nortriptyline 75mg qhs DVT Prophylaxis:Xarelto, will discharge on it Sofía Betancourt MD Subjective No issues/events overnight. Pt seen resting in bed on rounds. Had d/c salvatore, and patient reports that urination has been going well. States that her pain is well controlled. She is sleeping well at night. Denies any additional concerns this morning - did have a question, but cannot remember it at this time. Difficulty with getting the wound vac to seal. Will discuss with wound team tomorrow Objective Vital Signs: Last Filed Vital Signs: 24 Hour Range BP: 112/68 (02/21 348) Temp: 37.1 C (98.7 F) (02/21 348) Pulse: 93 (02/21 348) Respirations: 17 PER MINUTE (02/21 348) SpO2: 96 % (02/21 348) O2 Delivery: None (Room Air) (02/21 348) BP: (112-116)/(61-68) Temp: [37.1 C (98.7 F)-37.2 C (99 F)] Pulse: [93-113] Respirations: [16 PER MINUTE-17 PER MINUTE] SpO2: [95 %-96 %] O2 Delivery: None (Room Air) Intensity Pain Scale 0-10 (Pain 1): 6 (02/20/18 09) Vitals: 02/17/18 0445 02/18/18 0534 02/20/18 0348 Weight: 90.4 kg (199 lb 4.7 oz) 90.4 kg (199 lb 3.2 oz) 91.4 kg (201 lb 9.1 oz) Intake/Output Summary: (Last 24 hours) Intake/Output Summary (Last 24 hours) at 02/20/18 1020 Last data filed at 02/20/18 0908 Gross per 24 hour Intake 940 ml Output 1050 ml Net -110 ml Stool Occurrence: 0 Oral Diet Order: Diabetic 1123-6535 Kcal/day (60 g Carb/meal, 30 g Carb/HS snack ) Last BM Date: 02/20/18 Lab: Results for orders placed or performed during the hospital encounter of (from the past 24 hour(s)) POC GLUCOSE Collection Time: 02/19/18 12:03 PM # # Low-High Glucose, POC 136 (H) 70 - 100 MG/DL POC GLUCOSE Collection Time: 02/19/18 4:51 PM # # Low-High Glucose, POC 143 (H) 70 - 100 MG/DL POC GLUCOSE Collection Time: 02/19/18 8:51 PM # # Low-High Glucose, POC 182 (H) 70 - 100 MG/DL POC GLUCOSE Collection Time: 02/20/18 6:53 AM # # Low-High Glucose, POC 111 (H) 70 - 100 MG/DL Scheduled Meds: aspirin chewable tablet 81 mg 81 mg Oral QDAY buPROPion (WELLBUTRIN) tablet 100 mg 100 mg Oral TID busPIRone (BUSPAR) tablet 30 mg 30 mg Oral BID carbamide peroxide (DEBROX) 6.5 % otic solution 5 drop 5 drop Both Ears BID collagenase (SANTYL) topical ointment Topical QDAY docusate (COLACE) capsule 100 mg 100 mg Oral BID ferrous sulfate (FEOSOL, FEROSUL) tablet 325 mg 325 mg Oral TID w/ meals gabapentin (NEURONTIN) capsule 600 mg 600 mg Oral Q6H insulin aspart U-100 (NOVOLOG FLEXPEN) injection PEN 0-6 Units 0-6 Units Subcutaneous ACHS lactobacillus rhamnosus GG (CULTURELLE) 15 billion cell capsule 1 capsule 1 capsule Oral BID w/meals levothyroxine (SYNTHROID) tablet 200 mcg 200 mcg Oral QDAY before breakfast metFORMIN (GLUCOPHAGE) tablet 1,000 mg 1,000 mg Oral BID w/meals nortriptyline (PAMELOR) capsule 75 mg 75 mg Oral QHS oxyCODONE (ROXICODONE, OXY-IR) tablet 15 mg 15 mg Oral Once per day on Wed oxyCODONE SR (OXYCONTIN) tablet 10 mg 10 mg Oral BID pantoprazole DR (PROTONIX) tablet 40 mg 40 mg Oral QDAY(21) rivaroxaban (XARELTO) tablet 20 mg 20 mg Oral QDAY w/breakfast simvastatin (ZOCOR) tablet 20 mg 20 mg Oral QHS sitaGLIPtin (JANUVIA) tablet 100 mg 100 mg Oral QDAY Continuous Infusions: PRN and Respiratory Meds:acetaminophen Q6H PRN, alteplase PRN (Catalogue Librarian from Rx) , aluminum/magnesium hydroxide Q6H PRN, calcium carbonate Q4H PRN, milk of magnesia (CONC) Q4H PRN, ondansetron (ZOFRAN) IV Q6H PRN, oxyCODONE Q4H PRN, pancrelipase 20,000 Units/ sodium bicarbonate 650 mg(#) PRN (Catalogue Librarian from Rx), sodium hypochlorite PRN Physical Exam VS: BP 112/68 (BP Source: Arm, Right) | Pulse 93 | Temp 37.1 C (98.7 F) | Ht 160 cm (63") | Wt 91.4 kg (201 lb 9.1 oz) | LMP 01/14/2013 | SpO2 96% | BMI 35.71 kg/m Gen: awake, alert, NAD HEENT: NCAT, MMM CV: RRR, no murmur Pulm: CTAB, no w/r Abd: nondistended, nontender : Indwelling melchor catheter d/c'ed Extremities: mild edema rle, s/p hemipelvectomy on left with dressings and wound vac in place. Psych: Pleasent mood Therapy Notes & Labs Reviewed. Sofía Betancourt MD * Sofía Betancourt MD - 02/19/2018 9:19 AM CDT Formatting of this note may be different from the original. Physical Medicine & Rehabilitation Progress Note Today's Date: 02/19/2018 Admission Date: 01/14/2018 LOS: 36 days Insurance: [facility] Principal Problem: Left hip amputation status Active Problems: Chondrosarcoma (HCC) Acute blood loss as cause of postoperative anemia Depression Anxiety DM (diabetes mellitus) (HCC) 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 Chronic pain Post-op pain Bacteremia Amputated left leg (HCC) Candiduria Assessment/Plan: Beata Lema a 52 y.o.femalead[facility]with the following issues : 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 Patient will need a modified schedule of 15 hours over 7 days to accommodate HBOT schedule. Goals: household mobility at wheelchair level mod I Tentative discharge date: 03/02/18 Recommended therapy after discharge: home health OT/PT Recommended equipment: Hospital bed, wheelchair/cushion, slideboard, ramp - Patient requires hospital bed at discharge. Patient requires positioning of the body in ways not feasible with ordinary beds to in order to alleviate pain. Patient requires frequent repositioning of the body and/or has an immediate need for change in body position. - Due to patients functional limitations they require a manual wheelchair for independent mobility in the home. A therapy evaluation was completed during their inpatient rehab stay to assess the most appropriate wheelchair for the patient. Daily Functional Update: Transfers Device Sit to Stand Transfer: Assistive Device: Roller Walker (02/18/2018 9:30 AM) No Data Recorded Gait Device Assist Required Distance Gait: Assistive Device: Parallel Bars (02/16/2018 9:30 AM) No Data Recorded Gait Distance: 4 feet (x 2) (02/16/2018 9:30 AM) Toileting Assist Required Equipment Toilet Transfer Toileting Assist: Total Assist (02/09/2018 8:30 AM) No Data Recorded No Data Recorded Dressing Lower Body LE Dressing Assist: Moderate Assist (02/17/2018 8:00 AM) Chrondrosarcoma s/p hemipelvectomy and hemisacrectomy Lymphedema wound and residual limb >wound vac in place. Changes M/W/F by wound vac team. PO 15mg oxycodone MWF for [place] changes + lidocaine into sponge during acute hospitalization - weaned off IV pain meds >Plan on 20 treatment of HBOT M-F in late afternoon Post-op pain in setting of chronic pain Phantom limb pain, neuropathic pain >Tylenol, oxycontin 10mg BID and oxycodone 20mg q3h prn. Lidoderm patch prn. > Continue nortriptyline 75mg QHS > Continue gabapentin 600mg Q6h Tremors - improving -Likely related to gabapentin >improved with decreased gabapentin to 600mg Q6h s/p diverting colostomy - Stool saturating wound. Diverting colostomy done 12/30 >wound/ostomy consulted, working on education with nursing Bladder injury, recent repair - bladder and urethral injuries during hemipelvectomy on 12/14/17 - underwent cystoscopy with left ureteral stent insertion, Bladder neck repair, Urethroplasty and repair of urethral injury, Vaginal closure > Per ortho/urology/plastics/Wound care ok to d/c melchor. Will f/u with and wound care > D/c melchor (02/18) implement bladder scan protocol Chest lesions (metastases?) - 11/26/17 CT: few small pulmonary nodules. >Per CTS ok to repeat CT chest once discharged on a outpatient basis GBS bacteremia w/ sepsis due to left hip wound - Fever and leukocytosis began 12/20/17, Bcx 1/ positive for GBS on 12/23 - Completed course of abx 01/23 ertapenem - Multiple fevers 01/26 in pm, started Vanc/Meropenem and obtained blood cx x2 and UA/reflex cx - 09/21 bcx contaminated, rest NGTD - Repeat blood cx's 01/31 no growth > IV Abx d/c 02/15 > Will d/c PICC line (6/1) DVT - 11/30/17 IVC filter for DVT within the external iliac vein >cont Xarelto ABLA - Transfusion 01/15 and 01/28 1U PRBC - monitor labs T2DM - A1c 6.5%, controlled - CAMP TENDER regimen: Metformin thousand milligrams twice a day, [id number] mg daily (resume at discharge) > Correction factor > Metformin 1000mg BID, Januvia 100mg daily 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 - CAMP TENDER 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 daily - TSH 2.1 this admission >levothyroxine increased 200 mcg on 01/26 >She will need repeat thyroid function tests in 6-8 weeks (~March 08) Major depressive disorder, recurrent, moderate CLAUDIA Adjustment disorder with mixed anxiety and depressed mood > continue CAMP TENDER Wellbutrin and buspar, started on nortriptyline this admission Nutrition -Pt is currently meeting caloric and protein needs > weekly prealbumin and albumin - remains low > D/c corpak 02/02 > Continue current diet with protein supplementation HLD: holding CAMP TENDER statin Insomnia: nortriptyline 75mg qhs DVT Prophylaxis:Xarelto, will discharge on it Sofía Betancourt MD Subjective No issues/events overnight. Pt seen resting in bed on rounds. Had d/c salvatore, and patient reports that urination has been going well. States that her pain is well controlled. She is sleeping well at night. Denies any additional concerns this morning - did have a question, but cannot remember it at this time. Objective Vital Signs: Last Filed Vital Signs: 24 Hour Range BP: 119/66 (02/19 710) Temp: 36.6 C (97.9 F) (02/19 710) Pulse: 107 (02/19 710) Respirations: 20 PER MINUTE (02/19 710) SpO2: 93 % (02/19 710) O2 Delivery: None (Room Air) (02/19 710) BP: (111-135)/(62-68) Temp: [36.6 C (97.9 F)-37.1 C (98.8 F)] Pulse: [92-120] Respirations: [19 PER MINUTE-20 PER MINUTE] SpO2: [92 %-100 %] O2 Delivery: None (Room Air) Intensity Pain Scale 0-10 (Pain 1): 4 (02/19/18 0828) Vitals: 02/16/18 0356 02/17/18 0445 02/18/18 0534 Weight: 90.2 kg (198 lb 13.7 oz) 90.4 kg (199 lb 4.7 oz) 90.4 kg (199 lb 3.2 oz ) Intake/Output Summary: (Last 24 hours) Intake/Output Summary (Last 24 hours) at 02/19/18 09 Last data filed at 02/19/18 0828 Gross per 24 hour Intake 150 ml Output 550 ml Net -400 ml Stool Occurrence: 0 Oral Diet Order: Diabetic 6199-3604 Kcal/day (60 g Carb/meal, 30 g Carb/HS snack ) Last BM Date: 02/19/18 Lab: Results for orders placed or performed during the hospital encounter of (from the past 24 hour(s)) POC GLUCOSE Collection Time: 02/18/18 11:36 AM # # Low-High Glucose, POC 148 (H) 70 - 100 MG/DL POC GLUCOSE Collection Time: 02/18/18 1:23 PM # # Low-High Glucose, POC 155 (H) 70 - 100 MG/DL POC GLUCOSE Collection Time: 02/18/18 3:24 PM # # Low-High Glucose, POC 152 (H) 70 - 100 MG/DL POC GLUCOSE Collection Time: 02/18/18 4:47 PM # # Low-High Glucose, POC 153 (H) 70 - 100 MG/DL POC GLUCOSE Collection Time: 02/18/18 8:38 PM # # Low-High Glucose, POC 156 (H) 70 - 100 MG/DL POC GLUCOSE Collection Time: 02/18/18 9:04 PM # # Low-High Glucose, POC 133 (H) 70 - 100 MG/DL POC GLUCOSE Collection Time: 02/19/18 7:19 AM # # Low-High Glucose, POC 99 70 - 100 MG/DL Scheduled Meds: aspirin chewable tablet 81 mg 81 mg Oral QDAY buPROPion (WELLBUTRIN) tablet 100 mg 100 mg Oral TID busPIRone (BUSPAR) tablet 30 mg 30 mg Oral BID carbamide peroxide (DEBROX) 6.5 % otic solution 5 drop 5 drop Both Ears BID collagenase (SANTYL) topical ointment Topical QDAY docusate (COLACE) capsule 100 mg 100 mg Oral BID ferrous sulfate (FEOSOL, FEROSUL) tablet 325 mg 325 mg Oral TID w/ meals gabapentin (NEURONTIN) capsule 600 mg 600 mg Oral Q6H insulin aspart U-100 (NOVOLOG FLEXPEN) injection PEN 0-6 Units 0-6 Units Subcutaneous ACHS lactobacillus rhamnosus GG (CULTURELLE) 15 billion cell capsule 1 capsule 1 capsule Oral BID w/meals levothyroxine (SYNTHROID) tablet 200 mcg 200 mcg Oral QDAY before breakfast metFORMIN (GLUCOPHAGE) tablet 1,000 mg 1,000 mg Oral BID w/meals nortriptyline (PAMELOR) capsule 75 mg 75 mg Oral QHS oxyCODONE (ROXICODONE, OXY-IR) tablet 15 mg 15 mg Oral Once per day on Wed oxyCODONE SR (OXYCONTIN) tablet 10 mg 10 mg Oral BID [address]ole DR (PROTONIX) tablet 40 mg 40 mg Oral QDAY(21) rivaroxaban (XARELTO) tablet 20 mg 20 mg Oral QDAY w/breakfast simvastatin (ZOCOR) tablet 20 mg 20 mg Oral QHS sitaGLIPtin (JANUVIA) tablet 100 mg 100 mg Oral QDAY Continuous Infusions: PRN and Respiratory Meds:acetaminophen Q6H PRN, alteplase PRN (Catalogue Librarian from Rx) , aluminum/magnesium hydroxide Q6H PRN, calcium carbonate Q4H PRN, milk of magnesia (CONC) Q4H PRN, ondansetron (ZOFRAN) IV Q6H PRN, oxyCODONE Q4H PRN, pancrelipase 20,000 Units/ sodium bicarbonate 650 mg(#) PRN (Catalogue Librarian from Rx), sodium hypochlorite PRN Physical Exam VS: BP 119/66 (BP Source: Arm, Left) | Pulse 107 | Temp 36.6 C (97.9 F) | Ht 160 cm (63") | Wt 90.4 kg (199 lb 3.2 oz) | LMP 01/14/2013 | SpO2 93% | BMI 35.29 kg/m Gen: awake, alert, NAD HEENT: NCAT, MMM CV: RRR, no murmur Pulm: CTAB, no w/r Abd: nondistended, nontender : Indwelling melchor catheter d/c'ed Extremities: mild edema rle, s/p hemipelvectomy on left with dressings and wound vac in place. Psych: Pleasent mood Therapy Notes & Labs Reviewed. Sofía Betancourt MD * Skyler Enriquez RN - 02/18/2018 5:48 PM CDT Picc line discontinued, tip was intact. Pt tolerated well * Joseph Acosta, RN - 02/18/2018 5:31 PM CDT After discussion with primary RN, decision is made to re-consult IV team when patient has further need of access. Order removed. * Jennifer Diaz RN - 02/18/2018 11:40 AM CDT Formatting of this note may be different from the original. Wound Ostomy Nursing Consult Service NAME:Beata Kaiser :1965 AGE: 52 y.o. ADMISSION DATE: 01/14/2018 DAYS ADMITTED: LOS: 35 days Reason for Visit: wound VAC Assessment/Plan: Principal Problem: Left hip amputation status Active Problems: Chondrosarcoma (HCC) Acute blood loss as cause of postoperative anemia Depression Anxiety DM (diabetes mellitus) (HCC) 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 Chronic pain Post-op pain Bacteremia Amputated left leg (HCC) Candiduria Wounds (NOT for Pressure Injuries) 11/30/17 0853 Left Buttocks Surgical Incision (Active) 11/30/17 0853 Buttocks Wound Orientation: Left Wound Type: Surgical Incision Wound Type:: Wound Description (Comments): Carlos Manuel Rosales Drain, Sutures, xeroform, 4x4's, and tegaderm. Wound Base Assessment Moist;Gallardo;Black 02/18/2018 11:40 AM Surrounding Skin Assessment Intact;[place] 02/18/2018 11:40 AM Wound Site Closure Ceci 02/18/2018 11:40 AM Wound Drainage Amount Small 02/18/2018 11:40 AM Wound Drainage Description Gallardo;Serous 02/18/2018 11:40 AM Wound Dressing Status Changed 02/18/2018 11:40 AM Wound Dressing and / or Treatment Hydrofera Blue Ready 02/18/2018 11:40 AM Wounds (NOT for Pressure Injuries) 12/14/17 1748 Left Abdomen Ulcer (not from pressure) (Active) 12/14/17 1748 Abdomen Wound Orientation: Left Wound Type: Ulcer (not from pressure) Wound Type:: Wound Description (Comments): Wound Base Assessment Moist;Yellow;Slough 02/18/2018 11:40 AM Surrounding Skin Assessment [place];Purple 02/18/2018 11:40 AM Wound Site Closure Wound Adhesive Bandage 02/18/2018 11:40 AM Wound Drainage Amount Small 02/18/2018 11:40 AM Wound Drainage Description Serous 02/18/2018 11:40 AM Wound Dressing Status Changed 02/18/2018 11:40 AM Wound Dressing and / or Treatment Collagenase;Abdominal Pad 02/18/2018 11:40 AM Wounds (NOT for Pressure Injuries) 12/30/17 1002 Left;Anterior Surgical Incision stump (Active) 12/30/17 1002 Wound Orientation: Left;Anterior Wound Type: Surgical Incision Wound Type:: stump Wound Description (Comments): Suture, ceci, telfa and iodine, 4x4, and tegaderm Wound Base Assessment Black;Eschar 02/18/2018 11:40 AM Surrounding Skin Assessment Red;Purple 02/18/2018 11:40 AM Wound Site Closure Ceci 02/18/2018 11:40 AM Wound Drainage Amount Small 02/18/2018 11:40 AM Wound Drainage Description Serosanguineous 02/18/2018 11:40 AM Wound Dressing Status Changed 02/18/2018 11:40 AM Wound Dressing and / or Treatment Hydrofera Blue Ready;Hypafix Tape 02/18/2018 11: 40 AM Wounds (NOT for Pressure Injuries) 01/10/18 1100 Hip Surgical Incision (Active) 01/10/18 1100 Hip Wound Orientation: Wound Type: Surgical Incision Wound Type:: Wound Description (Comments): XEROFORM, 4X4S, HYPAFIX, WOUND VAC Wound Base Assessment Moist;Red;Gallardo 02/18/2018 11:40 AM Surrounding Skin Assessment Intact;Red;Purple 02/18/2018 11:40 AM Wound Site Closure Wound Adhesive Bandage 02/18/2018 11:40 AM Wound Drainage Amount Large 02/18/2018 11:40 AM Wound Drainage Description Serous 02/18/2018 11:40 AM Wound Dressing Status Changed 02/18/2018 11:40 AM Wound Dressing and / or Treatment VAC sponge - black;VAC tx: Continuous;VAC @ - 125 mm/Hg 02/18/2018 11:40 AM Wounds (NOT for Pressure Injuries) 01/10/18 Left;Inner;Posterior Buttocks Surgical Incision (Active) 01/10/18 Buttocks Wound Orientation: Left;Inner;Posterior Wound Type: Surgical Incision Wound Type:: Wound Description (Comments): Wound Base Assessment Moist;Gallardo;Black 02/18/2018 11:40 AM Surrounding Skin Assessment Intact;[place] 02/18/2018 11:40 AM Wound Site Closure Wound Adhesive Bandage 02/18/2018 11:40 AM Wound Drainage Amount Small 02/18/2018 11:40 AM Wound Drainage Description Serous;Gallardo 02/18/2018 11:40 AM Wound Dressing Status Changed 02/18/2018 11:40 AM Wound Dressing and / or Treatment Hydrofera Blue Ready 02/18/2018 11:40 AM Procedure: Negative Wound Therapy Dressing Change Anesthesia Type: Not Applicable or None Provider(s) and Role: RN Negative Wound Pressure Device Type: KCI VAC Contact layer: None Number of sponges in the wound prior to dressing change: 2 Number of sponges removed from the wound: 2 Type of sponge: Black foam Number of sponges placed in the wound: 3 Next wound VAC dressing change planned Mon 02/21. Jennifer Diaz RN Dressings changed on left lower abdomen, left mid buttock and left lower buttock wounds during today's visit. Will continue to follow. Jennifer Diaz RN, BSN, CWON Wound/Ostomy Nursing Consult Service Office: [phone] Pager: [phone] Wound/Ostomy Team Pager (After Hours/Weekends): [phone] * Ruth Allen MD - 02/18/2018 11:06 AM CDT Formatting of this note may be different from the original. ATTESTATION I personally performed the banuelos portions of the E/M visit, discussed case with resident and concur with resident documentation of history, physical exam, assessment, and treatment plan unless otherwise noted. Labs and VS reviewed and stable. No fevers since d/c abx. D/c PICC today. After d/w all consulting teams, will d/c Melchor today and monitor BVI/PVRs, d/w OT and nursing for bedside commode toilet transfers. HBOT until 03/01, therefore d/c home extended to 03/02. Pt observed propelling w/c in patino with PT today, improving distance and endurance. Patient remains medically stable to participate in IRF program. Staff name: Ruth Allen MD Date: 02/18/2018 Physical Medicine & Rehabilitation Progress Note Today's Date: 02/18/2018 Admission Date: 01/14/2018 LOS: 35 days Insurance: [facility] Principal Problem: Left hip amputation status Active Problems: Chondrosarcoma (HCC) Acute blood loss as cause of postoperative anemia Depression Anxiety DM (diabetes mellitus) (HCC) 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 Chronic pain Post-op pain Bacteremia Amputated left leg (HCC) Candiduria Assessment/Plan: Beata Lema a 52 y.o.female[facility] the following issues : 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 Patient will need a modified schedule of 15 hours over 7 days to accommodate HBOT schedule. Goals: household mobility at wheelchair level mod I Tentative discharge date: 03/02/18 Recommended therapy after discharge: home health OT/PT Recommended equipment: Hospital bed, wheelchair/cushion, slideboard, ramp - Patient requires hospital bed at discharge. Patient requires positioning of the body in ways not feasible with ordinary beds to in order to alleviate pain. Patient requires frequent repositioning of the body and/or has an immediate need for change in body position. - Due to patients functional limitations they require a manual wheelchair for independent mobility in the home. A therapy evaluation was completed during their inpatient rehab stay to assess the most appropriate wheelchair for the patient. Daily Functional Update: Transfers Device Sit to Stand Transfer: Assistive Device: Roller Walker (02/17/2018 10:00 AM) No Data Recorded Gait Device Assist Required Distance Gait: Assistive Device: Parallel Bars (02/16/2018 9:30 AM) No Data Recorded Gait Distance: 4 feet (x 2) (02/16/2018 9:30 AM) Toileting Assist Required Equipment Toilet Transfer Toileting Assist: Total Assist (02/09/2018 8:30 AM) No Data Recorded No Data Recorded Dressing Lower Body LE Dressing Assist: Moderate Assist (02/17/2018 8:00 AM) Chrondrosarcoma s/p hemipelvectomy and hemisacrectomy Lymphedema wound and residual limb >wound vac in place. Changes M/W/F by wound vac team. PO 15mg oxycodone MWF for [place] changes + lidocaine into sponge during acute hospitalization - weaned off IV pain meds >Plan on 20 treatment of HBOT M-F in late afternoon Post-op pain in setting of chronic pain Phantom limb pain, neuropathic pain >Tylenol, oxycontin 10mg BID and oxycodone 20mg q3h prn. Lidoderm patch prn. > Continue nortriptyline 75mg QHS > Continue gabapentin 600mg Q6h Tremors - improving -Likely related to gabapentin >improved with decreased gabapentin to 600mg Q6h s/p diverting colostomy - Stool saturating wound. Diverting colostomy done 12/30 >wound/ostomy consulted, working on education with nursing Bladder injury, recent repair - bladder and urethral injuries during hemipelvectomy on 12/14/17 - underwent cystoscopy with left ureteral stent insertion, Bladder neck repair, Urethroplasty and repair of urethral injury, Vaginal closure > Per ortho/urology/plastics/Wound care ok to d/c melchor. Will f/u with and wound care > D/c melchor (02/18) implement bladder scan protocol Chest lesions (metastases?) - 11/26/17 CT: few small pulmonary nodules. >Per CTS ok to repeat CT chest once discharged on a outpatient basis GBS bacteremia w/ sepsis due to left hip wound - Fever and leukocytosis began 12/20/17, Bcx / positive for GBS on 12/23 - Completed course of abx 01/23 ertapenem - Multiple fevers 01/26 in pm, started Vanc/Meropenem and obtained blood cx x2 and UA/reflex cx - 09/21 bcx contaminated, rest NGTD - Repeat blood cx's 01/31 no growth > IV Abx d/c 02/15 > Will d/c PICC line (02/18) DVT - 11/30/17 IVC filter for DVT within the external iliac vein >cont Xarelto ABLA - Transfusion 01/15 and 01/28 1U PRBC - monitor labs T2DM - A1c 6.5%, controlled - CAMP TENDER regimen: Metformin thousand milligrams twice a day, [id number] mg daily (resume at discharge) > Correction factor > Metformin 1000mg BID, Januvia 100mg daily 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 - CAMP TENDER 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 daily - TSH 2.1 this admission >levothyroxine increased 200 mcg on 01/26 >She will need repeat thyroid function tests in 6-8 weeks (~March 08) Major depressive disorder, recurrent, moderate CLAUDIA Adjustment disorder with mixed anxiety and depressed mood > continue CAMP TENDER Wellbutrin and buspar, started on nortriptyline this admission Nutrition -Pt is currently meeting caloric and protein needs > weekly prealbumin and albumin - remains low > D/c corpak 02/02 > Continue current diet with protein supplementation HLD: holding CAMP TENDER statin Insomnia: nortriptyline 75mg qhs DVT Prophylaxis:Xarelto, will discharge on it Ravi Pride, DO Subjective No issues/events overnight. Pt working with OT in room when seen on rounds. Spoke with wound care team yesterday which was ok with d/c salvatore. Pt was agreeable to this as well. Will also d/c PICC line per ID recs as it's a source for possible infection. Objective Vital Signs: Last Filed Vital Signs: 24 Hour Range BP: 96/56 (02/18 534) Temp: 36.5 C (97.7 F) (02/18 534) Pulse: 93 (02/18 534) Respirations: 18 PER MINUTE (02/18 534) SpO2: 92 % (02/18 534) O2 Delivery: None (Room Air) (02/18 534) BP: (96-160)/(56-79) Temp: [36.5 C (97.7 F)-36.7 C (98.1 F)] Pulse: [93-130] Respirations: [18 PER MINUTE] SpO2: [92 %-100 %] O2 Delivery: None (Room Air) Intensity Pain Scale 0-10 (Pain 1): 8 (02/18/18 0800) Vitals: 02/16/18 0356 02/17/18 0445 02/18/18 0534 Weight: 90.2 kg (198 lb 13.7 oz) 90.4 kg (199 lb 4.7 oz) 90.4 kg (199 lb 3.2 oz ) Intake/Output Summary: (Last 24 hours) Intake/Output Summary (Last 24 hours) at 02/18/18 1107 Last data filed at 02/18/18 1043 Gross per 24 hour Intake 480 ml Output 2500 ml Net -2020 ml Stool Occurrence: 0 Oral Diet Order: Diabetic [id number] Kcal/day (60 g Carb/meal, 30 g Carb/HS snack ) Last BM Date: 02/18/18 Lab: Results for orders placed or performed during the hospital encounter of (from the past 24 hour(s)) POC GLUCOSE Collection Time: 02/17/18 11:22 AM # # Low-High Glucose, POC 147 (H) 70 - 100 MG/DL POC GLUCOSE Collection Time: 02/17/18 1:05 PM # # Low-High Glucose, POC 215 (H) 70 - 100 MG/DL POC GLUCOSE Collection Time: 02/17/18 3:04 PM # # Low-High Glucose, POC 149 (H) 70 - 100 MG/DL POC GLUCOSE Collection Time: 02/17/18 5:07 PM # # Low-High Glucose, POC 140 (H) 70 - 100 MG/DL POC GLUCOSE Collection Time: 02/17/18 9:15 PM # # Low-High Glucose, POC 195 (H) 70 - 100 MG/DL CBC CELLULAR THERAPEUTICS Collection Time: 02/18/18 5:45 AM # # Low-High White Blood Cells 9.2 4.5 - 11.0 K/UL RBC 2.81 (L) 4.0 - 5.0 M/UL Hemoglobin 7.1 (L) 12.0 - 15.0 GM/DL Hematocrit 22.0 (L) 36 - 45 % MCV 78.3 (L) 80 - 100 FL MCH 25.3 (L) 26 - 34 PG MCHC 32.3 32.0 - 36.0 G/DL RDW 21.7 (H) 11 - 15 % Platelet Count 465 (H) 150 - 400 K/UL MPV 6.6 (L) 7 - 11 FL BASIC METABOLIC PANEL CELLULAR THERAPEUTICS Collection Time: 02/18/18 5:45 AM # # Low-High Sodium 137 137 - 147 MMOL/L Potassium 3.9 3.5 - 5.1 MMOL/L Chloride 101 98 - 110 MMOL/L CO2 28 21 - 30 MMOL/L Anion Gap 8 3 - 12 Glucose 86 70 - 100 MG/DL Blood Urea Nitrogen 12 7 - 25 MG/DL Creatinine 0.75 0.4 - 1.00 MG/DL Calcium 8.8 8.5 - 10.6 MG/DL eGFR Non >60 >60 mL/min eGFR >60 >60 mL/min POC GLUCOSE Collection Time: 02/18/18 7:07 AM # # Low-High Glucose, POC 96 70 - 100 MG/DL Scheduled Meds: aspirin chewable tablet 81 mg 81 mg Oral QDAY buPROPion (WELLBUTRIN) tablet 100 mg 100 mg Oral TID busPIRone (BUSPAR) tablet 30 mg 30 mg Oral BID carbamide peroxide (DEBROX) 6.5 % otic solution 5 drop 5 drop Both Ears BID collagenase (SANTYL) topical ointment Topical QDAY docusate (COLACE) capsule 100 mg 100 mg Oral BID ferrous sulfate (FEOSOL, FEROSUL) tablet 325 mg 325 mg Oral TID w/ meals gabapentin (NEURONTIN) capsule 600 mg 600 mg Oral Q6H insulin aspart U-100 (NOVOLOG FLEXPEN) injection PEN 0-6 Units 0-6 Units Subcutaneous ACHS lactobacillus rhamnosus GG (CULTURELLE) 15 billion cell capsule 1 capsule 1 capsule Oral BID w/meals levothyroxine (SYNTHROID) tablet 200 mcg 200 mcg Oral QDAY before breakfast metFORMIN (GLUCOPHAGE) tablet 1,000 mg 1,000 mg Oral BID w/meals nortriptyline (PAMELOR) capsule 75 mg 75 mg Oral QHS oxyCODONE (ROXICODONE, OXY-IR) tablet 15 mg 15 mg Oral Once per day on Wed oxyCODONE SR (OXYCONTIN) tablet 10 mg 10 [address] Oral BID pantop[address]ole DR (PROTONIX) tablet 40 mg 40 mg Oral QDAY(21) rivaroxaban (XARELTO) tablet 20 mg 20 mg Oral QDAY w/breakfast simvastatin (ZOCOR) tablet 20 mg 20 mg Oral QHS sitaGLIPtin (JANUVIA) tablet 100 mg 100 mg Oral QDAY sodium chloride PF 0.9% flush 20 mL 20 mL Intravenous FLUSH TID Continuous Infusions: PRN and Respiratory Meds:acetaminophen Q6H PRN, alteplase PRN (Catalogue Librarian from Rx) , alum/mag hydroxide/simeth Q6H PRN, calcium carbonate Q4H PRN, milk of magnesia (CONC) Q4H PRN, ondansetron (ZOFRAN) IV Q6H PRN, oxyCODONE Q4H PRN, pancrelipase 20,000 Units/ sodium bicarbonate 650 mg(#) PRN (Catalogue Librarian from Rx), sodium hypochlorite PRN Physical Exam VS: BP 96/56 (BP Source: Arm, Right) | Pulse 93 | Temp 36.5 C (97.7 F) | Ht 160 cm (63") | Wt 90.4 kg (199 lb 3.2 oz) | LMP 01/14/2013 | SpO2 92% | BMI 35.29 kg/m Gen: awake, alert, NAD HEENT: NCAT, MMM CV: RRR, no murmur Pulm: CTAB, no w/r Abd: nondistended, nontender : Indwelling melchor catheter Extremities: mild edema rle, s/p hemipelvectomy on left with dressings and wound vac in place. Psych: Pleasent mood Therapy Notes & Labs Reviewed. * Cherri Kinney, PhD - 02/18/2018 11:01 AM CDT 10:37-10:59Pt was seen forafollow-uptherapeutic intervention with no family or significant others present. Pt was alertand responsive to inquiry/discussion. The utility of this service was reviewedand pt agreed to continue to participate. Speech appeared to be WNL, though slightly delayed, and thoughts seemed connected and goal oriented. Eye contact was appropriate and pt maintainedgaze. Mood was slightly dysthymic with patient exhibiting congruent affect. Pt reported significantly improved mood compared to the previous week. She reported that she could see herself making progress in therapies and stated that "I'm making great strides and gaining some strength back." She also reported applying the coping thoughts discussed in the previous session when experiencing anxiety during therapy, reassuring herself that she is not going to fall. She did note some concern around transitioning home, specifically stating that she worries her family might not provide necessary assistance. I reinforced pt's utilization of coping skills, such as her coping thoughts, to manage her anxiety. I also highlighted the patient's recognition of the gains she has made in therapy, and emphasized the importance of highlighting and remembering these rather than disqualifying the positive, as is a typical cognitive distortion within the context of depression. Through discussion, the patient was also able to identify ways in which she might communicate her needs to her family in such a way as to encourage their support and to continue participating in therapies/make recommended modifications to her living environment that will promote her independence. Pt reported significantly improved mood at the conclusion of the therapeutic session and requested that the service return next week to provide additional therapeutic support. Will continue to follow and assess as needed. Diagnosis: F33.4Major depressive disorder, recurrent, in partial remission; F41.9 Anxiety Hero Camarena, Ph.D. Advanced ClinicalPsychology Postdoctoral Fellow Pager #: [phone] ATTESTATION: I discussed this session and pt's care with the fellow and agree with his note above. We will continue to follow prn until [facility] IRF d/c. Warren Kinney, PhD, ABPP * Nani Lynch DO - 02/18/2018 8:21 AM CDT Chart reviewed, patient afebrile, vitals stable and normal WBC. Rec DC PICC line , otherwise no new ID recs at this time. Will sign off but please reconsult should new concerns arise. Karin Lynch, ID, [id number] * Tamara Reilly - 02/17/2018 3:25 PM CDT Patient has returned to the unit at this time via [employer] van. * Tamara Reilly - 02/17/2018 12:48 PM CDT Patients has left the unit for hyperbarics tx at this time via [employer]. * Arnaldo Delacruz MD - 02/17/2018 9:28 AM CDT Formatting of this note may be different from the original. Physical Medicine & Rehabilitation Progress Note Today's Date: 02/17/2018 Admission Date: 01/14/2018 LOS: 34 days Insurance: [facility] Principal Problem: Left hip amputation status Active Problems: Chondrosarcoma (HCC) Acute blood loss as cause of postoperative anemia Depression Anxiety DM (diabetes mellitus) (HCC) 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 Chronic pain Post-op pain Bacteremia Amputated left leg (HCC) Candiduria Assessment/Plan: Beata Lema a 52 y.o.femalead[facility]with the following issues : 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 Patient will need a modified schedule of 15 hours over 7 days to accommodate HBOT schedule. Goals: household mobility at wheelchair level mod I Tentative discharge date: 03/02/18 Recommended therapy after discharge: home health OT/PT Recommended equipment: Hospital bed, wheelchair/cushion, slideboard, ramp - Patient requires hospital bed at discharge. Patient requires positioning of the body in ways not feasible with ordinary beds to in order to alleviate pain. Patient requires frequent repositioning of the body and/or has an immediate need for change in body position. - Due to patients functional limitations they require a manual wheelchair for independent mobility in the home. A therapy evaluation was completed during their inpatient rehab stay to assess the most appropriate wheelchair for the patient. Daily Functional Update: Transfers Device Sit to Stand Transfer: Assistive Device: Roller Walker (02/16/2018 9:30 AM) No Data Recorded Gait Device Assist Required Distance Gait: Assistive Device: Parallel Bars (02/16/2018 9:30 AM) No Data Recorded Gait Distance: 4 feet (x 2) (02/16/2018 9:30 AM) Toileting Assist Required Equipment Toilet Transfer Toileting Assist: Total Assist (02/09/2018 8:30 AM) No Data Recorded No Data Recorded Dressing Lower Body LE Dressing Assist: Moderate Assist (02/16/2018 8:15 AM) Chrondrosarcoma s/p hemipelvectomy and hemisacrectomy Lymphedema wound and residual limb >wound vac in place. Changes M/W/F by wound vac team. PO 15mg oxycodone MWF for [place] changes + lidocaine into sponge during acute hospitalization - weaned off IV pain meds >Plan on 20 treatment of HBOT M-F in late afternoon Post-op pain in setting of chronic pain Phantom limb pain, neuropathic pain >Tylenol, oxycontin 10mg BID and oxycodone 20mg q3h prn. Lidoderm patch prn. > Continue nortriptyline 75mg QHS > Continue gabapentin 600mg Q6h Tremors - improving -Likely related to gabapentin >improved with decrease gabapentin to 600mg Q6h s/p diverting colostomy - Stool saturating wound. Diverting colostomy done 12/30 >wound/ostomy consulted, working on education with nursing Bladder injury, recent repair - bladder and urethral injuries during hemipelvectomy on 12/14/17 - underwent cystoscopy with left ureteral stent insertion, Bladder neck repair, Urethroplasty and repair of urethral injury, Vaginal closure >continue melchor catheter, last changed 02/11 > Per ortho/urology/plastics ok to d/c melchor. Will f/u with and wound care Chest lesions (metastases?) - 11/26/17 CT: few small pulmonary nodules. >Per CTS ok to repeat CT chest once discharged on a outpatient basis GBS bacteremia w/ sepsis due to left hip wound - Fever and leukocytosis began 12/20/17, Bcx / positive for GBS on 12/23 - Completed course of abx 01/23 ertapenem > Multiple fevers 01/26 in pm, started Vanc/Meropenem and obtained blood cx x2 and UA/reflex cx - 09/21 bcx contaminated, rest NGTD > Repeat blood cx's 01/31 NGTD > IV Abx d/c per ID 02/15, will monitor off of abx DVT - 11/30/17 IVC filter for DVT within the external iliac vein >cont Xarelto ABLA - Transfusion 01/15 and 01/28 1U PRBC - monitor labs T2DM - A1c 6.5%, controlled - CAMP TENDER regimen: Metformin thousand milligrams twice a day, [id number] mg daily (resume at discharge) > Correction factor > Metformin 1000mg BID, Januvia 100mg daily 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 - CAMP TENDER 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 daily - TSH 2.1 this admission >levothyroxine increased 200 mcg on 01/26 >She will need repeat thyroid function tests in 6-8 weeks (~March 08) Major depressive disorder, recurrent, moderate CLAUDIA Adjustment disorder with mixed anxiety and depressed mood > continue CAMP TENDER Wellbutrin and buspar, started on nortriptyline this admission Nutrition -Pt is currently meeting caloric and protein needs > weekly prealbumin and albumin - remains low > D/c corpak 02/02 > Continue current diet with protein supplementation HLD: holding CAMP T[employer]ER statin Insomnia: nortriptyline 75mg qhs DVT Prophylaxis:Xarelto, will discharge on it Arnaldo Delacruz MD Subjective NEON. Pt sitting up in bed working with OT when seen this am. She is inquiring about duration of melchor catheter this AM. She otherwise feels therapies are going well. She slept well last night and reports controlled pain. Denies N&V, CP, SOB. Objective Vital Signs: Last Filed Vital Signs: 24 Hour Range BP: 114/60 (02/17 445) Temp: 37.3 C (99.1 F) (02/17 445) Pulse: 112 (02/17 445) Respirations: 18 PER MINUTE (02/17 445) SpO2: 92 % (02/17 445) O2 Delivery: None (Room Air) (02/17 445) BP: (114-121)/(54-70) Temp: [36.8 C (98.2 F)-37.3 C (99.1 F)] Pulse: [105-118] Respirations: [18 PER MINUTE-20 PER MINUTE] SpO2: [92 %-96 %] O2 Delivery: None (Room Air) Intensity Pain Scale 0-10 (Pain 1): 4 (02/17/18 0749) Vitals: 02/15/18 0600 02/16/18 0356 02/17/18 0445 Weight: 88.8 kg (195 lb 12.3 oz) 90.2 kg (198 lb 13.7 oz) 90.4 kg (199 lb 4.7 oz ) Intake/Output Summary: (Last 24 hours) Intake/Output Summary (Last 24 hours) at 02/17/18 0928 Last data filed at 02/17/18 0900 Gross per 24 hour Intake 1017 ml Output 3750 ml Net -2733 ml Stool Occurrence: 0 Oral Diet Order: Diabetic [id number] Kcal/day (60 g Carb/meal, 30 g Carb/HS snack ) Last BM Date: 02/16/18 Lab: Results for orders placed or performed during the hospital encounter of (from the past 24 hour(s)) POC GLUCOSE Collection Time: 02/16/18 11:52 AM # # Low-High Glucose, POC 189 (H) 70 - 100 MG/DL POC GLUCOSE Collection Time: 02/16/18 1:18 PM # # Low-High Glucose, POC 119 (H) 70 - 100 MG/DL POC GLUCOSE Collection Time: 02/16/18 3:10 PM # # Low-High Glucose, POC 106 (H) 70 - 100 MG/DL POC GLUCOSE Collection Time: 02/16/18 5:07 PM # # Low-High Glucose, POC 89 70 - 100 MG/DL POC GLUCOSE Collection Time: 02/16/18 9:29 PM # # Low-High Glucose, POC 111 (H) 70 - 100 MG/DL POC GLUCOSE Collection Time: 02/17/18 6:54 AM # # Low-High Glucose, POC 109 (H) 70 - 100 MG/DL Scheduled Meds: aspirin chewable tablet 81 mg 81 mg Oral QDAY buPROPion (WELLBUTRIN) tablet 100 mg 100 mg Oral TID busPIRone (BUSPAR) tablet 30 mg 30 mg Oral BID carbamide peroxide (DEBROX) 6.5 % otic solution 5 drop 5 drop Both Ears BID collagenase (SANTYL) topical ointment Topical QDAY docusate (COLACE) capsule 100 mg 100 mg Oral BID ferrous sulfate (FEOSOL, FEROSUL) tablet 325 mg 325 mg Oral TID w/ meals gabapentin (NEURONTIN) capsule 600 mg 600 mg Oral Q6H insulin aspart U-100 (NOVOLOG FLEXPEN) injection PEN 0-6 Units 0-6 Units Subcutaneous ACHS lactobacillus rhamnosus GG (CULTURELLE) 15 billion cell capsule 1 capsule 1 capsule Oral BID w/meals levothyroxine (SYNTHROID) tablet 200 mcg 200 mcg Oral QDAY before breakfast metFORMIN (GLUCOPHAGE) tablet 1,000 mg 1,000 mg Oral BID w/meals nortriptyline (PAMELOR) capsule 75 mg 75 mg Oral QHS oxyCODONE (ROXICODONE, OXY-IR) tablet 15 mg 15 mg Oral Once per day on Wed oxyCODONE SR (OXYCONTIN) tablet 10 mg 10 mg Oral BID pantoprazole DR (PROTONIX) tablet 40 mg 40 mg Oral QDAY(21) rivaroxaban (XARELTO) tablet 20 mg 20 mg Oral QDAY w/breakfast simvastatin (ZOCOR) tablet 20 mg 20 mg Oral QHS sitaGLIPtin (JANUVIA) tablet 100 mg 100 mg Oral QDAY sodium chloride PF 0.9% flush 20 mL 20 mL Intravenous FLUSH TID Continuous Infusions: PRN and Respiratory Meds:acetaminophen Q6H PRN, alteplase PRN (Catalogue Librarian from Rx) , alum/mag hydroxide/simeth Q6H PRN, calcium carbonate Q4H PRN, milk of magnesia (CONC) Q4H PRN, ondansetron (ZOFRAN) IV Q6H PRN, oxyCODONE Q4H PRN, pancrelipase 20,000 Units/ sodium bicarbonate 650 mg(#) PRN (Catalogue Librarian from Rx), sodium hypochlorite PRN Physical Exam VS: BP 114/60 (BP Source: Arm, Left) | Pulse 112 | Temp 37.3 C (99.1 F) | Ht 160 cm (63") | Wt 90.4 kg (199 lb 4.7 oz) | LMP 01/14/2013 | SpO2 92% | BMI 35.30 kg/m Gen: awake, alert, NAD HEENT: NCAT, MMM CV: RRR, no murmur Pulm: CTAB, no w/r Abd: nondistended, nontender : Indwelling melchor catheter Extremities: mild edema rle, s/p hemipelvectomy on left with dressings and wound vac in place. Psych: Pleasent mood Therapy Notes & Labs Reviewed. * Nani Lynch, - 02/16/2018 9:17 PM CDT Formatting of this note may be different from the original. Infectious Diseases Progress Note Today's Date: 02/16/2018 Admission Date: 01/14/2018 Assessment: Low grade fever 01/21-improved/resolved and then recurrent 01/26 w high grade fever off abtx - Eschar of wound w/fat necrosis, ongoing sweats, no other new s/s -01/21 UA- 2-10 WBC, no culture -01/21 BC neg -01/21 KUB- -01/24- plastic eval of wounds- no surgical intervention given lyphedematous tissue, wound team, ongoing areas of dehiscence/eschar -01/26 BC- coag neg (peripheral) , neg PIC cult -01/26 UA - 0-2 WBC - urine culture neg -low grade temp 01/30 - 01/31 BC X 2 neg Non-healing surgical wounds 01/31- Hyperbaric tx started, ongoing wound care and [place] Coag neg staph bacteremia- likely contaminant 01/26 PIC- neg 01/26 BC peripheral- Coag neg 01/31 BC line and peripheral - neg Transaminitis-improved 01/24 - LFT elevated 104/97 01/25 LFT improved 41/68 # GBS bacteremia w sepsis- source suspected left hip wound, less likely pna - Fever and leukocytosis began 12/20/17 - / L lower lobe infiltrate - read as atelectasis - 12/20 C. diff negative - 12/23 Bcx 09/21 set group B streptococcus; source seems most likely intra-pelvic; 12/24 bcx negative - CT pelvis 12/25: "Ill-defined fluid and air along the anterior margin of the surgical site away from the drain tip. However, no discrete drainable fluid collection is noted. - OR 01/10 for wound eval - no sign of infection - posterior wound starting to granulate, [place] started # Candiduria-resolved - 12/21/17 UA: wbc 2-10, negative nitrite, 1+ luukocytes, Culture > 100,000 Liliana sp - Sensitivities not done, unsure if fluconazole susceptible; repeat urine culture negative 12/28 but improved with micafungin so is suspicion for fluconazole resistance - Treating given indwelling melchor and inability to remove melchor d/t recent bladder repair - ? Candidal intertrigo - groin/mons - Cath change in OR 01/10 - no bladder leak at that time - Micafungin course completed 01/16 # s/p hemipelvectomy for Chondrosarcoma - 11/25/17 MRI: a large lesion throughout the entire left hemipelvis that appeared to be centered within the ilium - 11/30/17 open biopsy: Chondrosarcoma - 11/26/17 CT: few small pulmonary nodules. will resect the masses in the chest later - admission 12/13/17- - 12/14/17: left hemipelvectomy, jamil sacrectomy. Complicated with bladder and urethral injury. Added Cystoscopy with left ureteral stent insertion, Bladder neck repair, Urethroplasty and repair of urethral injury, Vaginal closure. - Stool saturating wound. Diverting colostomy done 12/30. - 01/06 CT: left hemipelvectomy, edema w/in the operative bed- not changed except sl more gas, more focal gas/fluid alonger anterior/inferior and superior surgical margins. # DVT - 11/30/17 IVC filter for DVT within the external iliac vein # Obese # HTN # DM # 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 # Depression # Generalized pain # abx allergy - allergic history to Cephalexin 'years ago' with skin rash and hot flash - tolerated Penicillin when she had dental caries -tolerates carbpenem Recommendations: 1. Cont monitoring off systemic antibiotics 2. Cont wound care/wv per Dr. Schneider/wound RN guidance 3. Cont hyperbaric tx (20 planned tx) 4. If temp > 38.3 check BC, UA (UC if pyuria) and call 5. If stable in next 24-48hrs consider removing picc line as potential infection risk Will cont to follow peripherally Interval History Afeb since 01/30 No f/c- sweats better No cough/sob No n/v/abd pain-appetite sl better off antibiotics No new concerns today Antimicrobial Start date End date Erythromycin 12/13 Neomycin 12/13 12/13 Polymyxin B 12/14 12/14 Ertapenem 01/10-01/24; 02/08 02/15 Gentamycin 12/14 12/15 Clindamycin 12/14 12/22 Pip/tazo 12/22 01/10 Fluconazole 12/22 12/30 Vancomycin 12/23 12/27 Micafungin 12/30 01/16 Vanco 01/26 02/15 Meropenem 01/26 02/08 Estimated Creatinine Clearance: 97.4 mL/min (based on SCr of 0.72 mg/dL). Medications Scheduled Meds: aspirin chewable tablet 81 mg 81 mg Oral QDAY buPROPion (WELLBUTRIN) tablet 100 mg 100 mg Oral TID busPIRone (BUSPAR) tablet 30 mg 30 mg Oral BID carbamide peroxide (DEBROX) 6.5 % otic solution 5 drop 5 drop Both Ears BID collagenase (SANTYL) topical ointment Topical QDAY docusate (COLACE) capsule 100 mg 100 mg Oral BID ferrous sulfate (FEOSOL, FEROSUL) tablet 325 mg 325 mg Oral TID w/ meals gabapentin (NEURONTIN) capsule 600 mg 600 mg Oral Q6H insulin aspart U-100 (NOVOLOG FLEXPEN) injection PEN 0-6 Units 0-6 Units Subcutaneous ACHS lactobacillus rhamnosus GG (CULTURELLE) 15 billion cell capsule 1 capsule 1 capsule Oral BID w/meals levothyroxine (SYNTHROID) tablet 200 mcg 200 mcg Oral QDAY before breakfast metFORMIN (GLUCOPHAGE) tablet 1,000 mg 1,000 mg Oral BID w/meals nortriptyline (PAMELOR) capsule 75 mg 75 mg Oral QHS oxyCODONE (ROXICODONE, OXY-IR) tablet 15 mg 15 mg Oral Once per day on Wed oxyCODONE SR (OXYCONTIN) tablet 10 mg 10 mg Oral BID pantoprazole DR (PROTONIX) tablet 40 mg 40 mg Oral QDAY(21) rivaroxaban (XARELTO) tablet 20 mg 20 mg Oral QDAY w/breakfast simvastatin (ZOCOR) tablet 20 mg 20 mg Oral QHS sitaGLIPtin (JANUVIA) tablet 100 mg 100 mg Oral QDAY sodium chloride PF 0.9% flush 20 mL 20 mL Intravenous FLUSH TID Continuous Infusions: PRN and Respiratory Meds:acetaminophen Q6H PRN, alteplase PRN (Catalogue Librarian from Rx) , alum/mag hydroxide/simeth Q6H PRN, calcium carbonate Q4H PRN, milk of magnesia (CONC) Q4H PRN, ondansetron (ZOFRAN) IV Q6H PRN, oxyCODONE Q4H PRN, pancrelipase 20,000 Units/ sodium bicarbonate 650 mg(#) PRN (Catalogue Librarian from Rx), sodium hypochlorite PRN Physical Examination Vital Signs: Last Vital Signs: 24 Hour Range BP: 121/70 (02/16 1707) Temp: 36.8 C (98.2 F) (02/16 1707) Pulse: 118 (02/16 1707) Respirations: 18 PER MINUTE (02/16 1707) SpO2: 96 % (02/16 1707) O2 Delivery: None (Room Air) (02/16 1707) BP: (106-121)/(51-70) Temp: [36.8 C (98.2 F)-37.1 C (98.8 F)] Pulse: [105-118] Respirations: [18 PER MINUTE-20 PER MINUTE] SpO2: [92 %-96 %] O2 Delivery: None (Room Air) General appearance: alert, oriented, no distress Lungs: clear bilaterally Heart: Regular rhythm, no murmur Abdomen: Soft, normal bowel sounds Ext: s/p left hemipelvectomy; RLE no edema; L wounds not examined today - reviewed Dr. Schneider's photos/descriptions (stable from my last exam) Lines: PICC RUE- no erythema Lab Review Hematology Recent Labs 02/14/18 0630 02/14/18 1632 02/16/18 0610 WBC 10.0 12.0* 9.7 HGB 7.6* 7.8* 7.6* HCT 23.3* 23.9* 23.0* PLTCT 463* 546* 447* Chemistry Recent Labs 02/14/18 0630 02/16/18 0610 NA 137 138 K 3.9 4.0 CL 102 102 CO2 29 28 BUN 9 8 CR 0.67 0.72 GFR >60 >60 GLU 90 87 CA 8.9 8.8 Microbiology, Radiology and other Diagnostics Review Microbiology data reviewed. Pertinent radiology reviewed Nani Lynch, DO ID [phone] * Tamara Reilly - 02/16/2018 4:18 PM CDT Patient has returned to the unit at this time via [facility] kike chen. * Nneka Garsia RN - 02/16/2018 3:58 PM CDT Formatting of this note may be different from the original. Wound Ostomy Note NAME:Beata Kaiser :1965 AGE: 52 y.o. ADMISSION DATE: 01/14/2018 DAYS ADMITTED: LOS: 33 days Reason for Consult/Visit: wound not pressure and wound VAC Assessment/Plan: Principal Problem: Left hip amputation status Active Problems: Chondrosarcoma (HCC) Acute blood loss as cause of postoperative anemia Depression Anxiety DM (diabetes mellitus) (HCC) 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 Chronic pain Post-op pain Bacteremia Amputated left leg (HCC) Candiduria Wounds (NOT for Pressure Injuries) 11/30/17 0853 Left Buttocks Surgical Incision (Active) 11/30/17 0853 Buttocks Wound Orientation: Left Wound Type: Surgical Incision Wound Type:: Wound Description (Comments): Carlos Manuel Rosales Drain, Sutures, xeroform, 4x4's, and tegaderm. Wound Image 02/09/2018 11:40 AM Agree With My Assessment? Yes 02/08/2018 12:00 AM Wound Base Assessment Dressing intact, base not assessed 02/16/2018 11:00 AM Surrounding Skin Assessment Dry;Intact 02/16/2018 11:00 AM Wound Site Closure Ceci 02/16/2018 11:00 AM Wound Drainage Amount None 02/16/2018 11:00 AM Wound Drainage Description Serosanguineous 02/15/2018 12:00 PM Wound Dressing Status Intact 02/16/2018 11:00 AM Wound Dressing and / or Treatment Hydrofera Blue 02/16/2018 11:00 AM Wound Length (cm) (Wound Team Only) 19 cm 02/16/2018 3:00 PM Wound Width (cm) (Wound Team Only) 4.5 cm 02/16/2018 3:00 PM Wound Depth (cm) (Wound Team Only) 2.5 02/09/2018 11:40 AM Wound Volume (cm^3) (Wound Team Only) 288.75 cm^3 02/09/2018 11:40 AM Wound Healing % (Wound Team Only) -2650 02/09/2018 11:40 AM Number of days: 78 Wounds (NOT for Pressure Injuries) 12/14/17 1748 Left Abdomen Ulcer (not from pressure) (Active) 12/14/17 1748 Abdomen Wound Orientation: Left Wound Type: Ulcer (not from pressure) Wound Type:: Wound Description (Comments): Wound Image 02/09/2018 11:40 AM Agree With My Assessment? Yes 02/08/2018 12:00 AM Wound Base Assessment Dressing intact, base not assessed 02/16/2018 11:00 AM Surrounding Skin Assessment Intact;[place];Purple 02/16/2018 11:00 AM Wound Site Closure None 02/16/2018 11:00 AM Wound Drainage Amount Small 02/15/2018 12:00 PM Wound Drainage Description Gallardo 02/15/2018 12:00 PM Wound Dressing Status Intact 02/16/2018 11:00 AM Wound Dressing and / or Treatment hydrofera blue readyAbdominal Pad;Hypafix Tape 02/16/2018 11:00 AM Wound Length (cm) (Wound Team Only) 4.5 cm 02/16/2018 3:00 PM Wound Width (cm) (Wound Team Only) 19 cm 02/16/2018 3:00 PM Wound Depth (cm) (Wound Team Only) 0.1 02/16/2018 3:00 PM Wound Volume (cm^3) (Wound Team Only) 8.55 cm^3 02/16/2018 3:00 PM Wound Healing % (Wound Team Only) -1.79 02/16/2018 3:00 PM Wound Status (Wound Team Only) Being Treated 02/09/2018 11:40 AM Number of days: 64 Wounds (NOT for Pressure Injuries) 12/20/17 1530 Right;Lower Abdomen Moisture Associated Skin Damage (Active) 12/20/17 1530 Abdomen Wound Orientation: Right;Lower Wound Type: Moisture Associated Skin Damage Wound Type:: Wound Description (Comments): Agree With My Assessment? Yes 02/08/2018 12:00 AM Wound Base Assessment Clean;Dry 02/16/2018 11:00 AM Surrounding Skin Assessment Intact 02/16/2018 11:00 AM Wound Site Closure Open to Air 02/16/2018 11:00 AM Wound Drainage Amount None 02/16/2018 11:00 AM Wound Drainage Description Serosanguineous 02/15/2018 9:00 PM Wound Dressing Status Open to Air 02/16/2018 11:00 AM Wound Dressing and / or Treatment Interdry [employer]ile 02/05/2018 4:00 PM Number of days: 58 Wounds (NOT for Pressure Injuries) 12/23/17 1345 Left Labia (Active) 12/23/17 1345 Labia Wound Orientation: Left Wound Type: Wound Type:: Wound Description (Comments): Agree With My Assessment? Yes 02/08/2018 12:00 AM Wound Base Assessment Clean;[place] 02/16/2018 11:00 AM Surrounding Skin Assessment Intact;Edema 02/16/2018 11:00 AM Wound Site Closure None 02/16/2018 11:00 AM Wound Drainage Amount Copious 02/16/2018 11:00 AM Wound Drainage Description Creamy 02/10/2018 11:00 AM Wound Dressing Status Open to Air 02/16/2018 11:00 AM Wound Dressing and / or Treatment Collagenase 02/15/2018 8:10 AM Wound Length (cm) (Wound Team Only) 1.5 cm 02/16/2018 3:00 PM Wound Width (cm) (Wound Team Only) 0.5 cm 02/16/2018 3:00 PM Wound Depth (cm) (Wound Team Only) 0.1 02/16/2018 3:00 PM Wound Volume (cm^3) (Wound Team Only) 0.075 cm^3 02/16/2018 3:00 PM Wound Healing % (Wound Team Only) 96 02/16/2018 3:00 PM Number of days: 55 Wounds (NOT for Pressure Injuries) 12/30/17 1002 Left;Anterior Surgical Incision stump (Active) 12/30/17 1002 Wound Orientation: Left;Anterior Wound Type: Surgical Incision Wound Type:: stump Wound Description (Comments): Suture, ceci, telfa and iodine, 4x4, and tegaderm Wound Image 02/09/2018 11:40 AM Agree With My Assessment? Yes 02/08/2018 12:00 AM Wound Base Assessment Dressing intact, base not assessed 02/16/2018 11:00 AM Surrounding Skin Assessment Intact;[place] 02/16/2018 11:00 AM Wound Site Closure [place] 02/16/2018 11:00 AM Wound Drainage Amount Scant 02/16/2018 11:00 AM Wound Drainage Description Serosanguineous 02/16/2018 11:00 AM Wound Dressing Status Intact 02/15/2018 9:00 PM Wound Dressing and / or Treatment Hydrofera Blue 02/16/2018 11:00 AM Wound Length (cm) (Wound Team Only) 16 cm 02/16/2018 3:00 PM Wound Width (cm) (Wound Team Only) 26 cm 02/16/2018 3:00 PM Wound Depth (cm) (Wound Team Only) 0.1 02/16/2018 3:00 PM Wound Volume (cm^3) (Wound Team Only) 41.6 cm^3 02/16/2018 3:00 PM Wound Healing % (Wound Team Only) -21.78 02/16/2018 3:00 PM Number of days: 48 Wounds (NOT for Pressure Injuries) 01/10/18 1100 Hip Surgical Incision (Active) 01/10/18 1100 Hip Wound Orientation: Wound Type: Surgical Incision Wound Type:: Wound Description (Comments): XEROFORM, 4X4S, HYPAFIX, WOUND VAC Wound Image 02/09/2018 11:40 AM Agree With My Assessment? Yes 02/08/2018 12:00 AM Wound Base Assessment Dressing intact, base not assessed 02/16/2018 11:00 AM Surrounding Skin Assessment Dry;Intact;[place] 02/16/2018 11:00 AM Wound Site Closure Wound Adhesive Bandage 02/15/2018 12:00 PM Wound Drainage Amount Moderate 02/16/2018 11:00 AM Wound Drainage Description Serous 02/16/2018 11:00 AM Wound Dressing Status Intact 02/16/2018 11:00 AM Wound Dressing and / or Treatment VAC sponge - 125 black;VAC tx: Continuous, 12:00 PM Wound Length (cm) (Wound Team Only) 10 cm 02/16/2018 3:00 PM Wound Width (cm) (Wound Team Only) 26 cm 02/16/2018 3:00 PM Wound Depth (cm) (Wound Team Only) 12 02/16/2018 3:00 PM Wound Volume (cm^3) (Wound Team Only) 3120 cm^3 02/16/2018 3:00 PM Wound Healing % (Wound Team Only) -33.33 02/16/2018 3:00 PM Wound Status (Wound Team Only) Being Treated 02/09/2018 11:40 AM Tunneling in CM (Wound Team Only) 15 cm 02/04/2018 4:00 PM Tunnelling Location 3 02/04/2018 4:00 PM Number of days: 37 Wounds (NOT for Pressure Injuries) 01/10/18 Left;Inner;Posterior Buttocks Surgical Incision (Active) 01/10/18 Buttocks Wound Orientation: Left;Inner;Posterior Wound Type: Surgical Incision Wound Type:: Wound Description (Comments): Wound Image 02/09/2018 11:40 AM Agree With My Assessment? Yes 02/15/2018 9:00 PM Wound Base Assessment Dressing intact, base not assessed 02/16/2018 11:00 AM Surrounding Skin Assessment Intact;[place] 02/16/2018 11:00 AM Wound Site Closure None 02/15/2018 12:00 PM Wound Drainage Amount None 02/16/2018 11:00 AM Wound Drainage Description [place] 02/15/2018 12:00 PM Wound Dressing Status Intact 02/16/2018 11:00 AM Wound Dressing and / or Treatment Hydrofera Blue 02/16/2018 11:00 AM Wound Length (cm) (Wound Team Only) 6 cm 02/16/2018 3:00 PM Wound Width (cm) (Wound Team Only) 11 cm 02/16/2018 3:00 PM Wound Depth (cm) (Wound Team Only) 0.1 02/16/2018 3:00 PM Wound Volume (cm^3) (Wound Team Only) 6.6 cm^3 02/16/2018 3:00 PM Wound Healing % (Wound Team Only) -1.54 02/16/2018 3:00 PM Number of days: 37 Colostomy 12/30/17 1209 Right (Active) 12/30/17 1209 Right Agree With My Assessment? Yes 02/09/2018 5:00 AM Stoma Assessment Clean;Red 02/16/2018 9:00 AM Drainage Description Brown 02/16/2018 9:00 AM Peristomal Skin Assessment Dry;Intact 02/16/2018 9:00 AM Dressing Status Intact 02/16/2018 9:00 AM Stoma Miscellaneous Other (Comment) 02/05/2018 8:00 AM Drain Output (ml) 100 ml 02/16/2018 10:00 AM Pt seen today for wound vac change b/c vac was leaking. Pt seen after hyperberic treatment was complete. Areas continuing to inprove with hyperberic treatments. Edema in continuing to improve. The apperence of the incisions wounds is about the same not worsening. The base of the wound bed where we are placing the wound vac is starting to have more granulation tissue. Wound base cleaned with normal saline and gauze. Black vac foam applied and secured with adhesive drape. Dressing connected to wound vac with setting of - 125mmhg continuous. Next dressing change planned for 02/18/18 Procedure: Negative Wound Therapy Dressing Change Anesthesia Type: Not Applicable or None Provider(s) and Role: RN Negative Wound Pressure Device Type: KCI VAC Contact layer: no Wound dimension (length x width x depth, tunneling, undermining): see above Number of sponges in the wound prior to dressing change: 2 Number of sponges removed from the wound: 2 Opal Garsia RN, BSN Wound /Ostomy Team Pager [phone] After Hours Wound/Ostomy team pager [phone] Type of sponge: Black foam Number of sponges placed in the wound: 2 Nneka Garsia RN. * Casey Schneider MD - 02/16/2018 3:40 PM CDT Formatting of this note may be different from the original. Wound Consult Note NAME:Beata Kaiser :1965 AGE: 52 y.o. ADMISSION DATE: 01/14/2018 DAYS ADMITTED: LOS: 33 days Principal Problem: Left hip amputation status Active Problems: Chondrosarcoma (HCC) Acute blood loss as cause of postoperative anemia Depression Anxiety DM (diabetes mellitus) (HCC) 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 Chronic pain Post-op pain Bacteremia Amputated left leg (HCC) Candiduria Assessment/Plan: Compromised complex skin graft Recommendations: Lymphedema improved, continue compression Continue VAC therapy Continue HBOT to 20 treatments with reassessment Santyl to slough area daily Hydrofera blue to maintain seal along intact incision lines Reason for Consultation: As above History of Present Illness: Status post left hemipelvectomy and hemisacrectomy developed compromised flap with lymphedema and Wound dehiscence. Exposed base now exhibits granulation bed with decrease in slough. Majority of abdominal portion improved with less lymphedema and healing beneath current eschar. Slough along superficial dehiscence margin will require collagenase to remove. The patient is tolerating HBOT without complication or complaints. Plan to complete 20 HBOT and reassess. The patient agrees with the treatment plan. Past Medical History: Past Medical History: Diagnosis Date Anxiety Back pain Depression DM (diabetes mellitus) (HCC) 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 Past Surgical History: Past Surgical History: Procedure Laterality Date SKIN BIOPSY Left 11/30/2017 BIOPSY SKIN LEFT PELVIS performed by [facility] PELVIS OSTEOTOMY Left 12/14/2017 JAMIL PELVECTOMY performed by Tamiko Luther MD [facility] URETER STENT PLACEMENT Bilateral 12/14/2017 CYSTORRHAPHY AND BLADDER NECK REPAIR, CYSTOSCOPY, performed by Spencer Purcell MD [facility] PERIPHERAL VASCULAR SURGERY Left 12/14/2017 LEFT ILIAC EXPOSURE performed by Pio Malagon DO at [facility] LEG DEBRIDEMENT Left 01/10/2018 WOUND EXPLORATION LEFT HEMIPELVECTOMY, IRRIGATION AND DEBRIDEMENT, WOUND VAC PLACEMENT performed by Tam[facility] NM VOIDING CYSTOGRAM N/A 01/10/2018 CYSTOGRAM, MELCHOR CATHETER EXCHANGE performed by Tamiko [facility] SECTION HERNIA REPAIR MANDIBLE SURGERY Family/Social History: Family History Problem Relation Age of Onset Osteoporosis Mother Arthritis-rheumatoid Maternal Grandmother Social History Social History Marital status: Spouse name: N/A Number of children: N/A Years of education: N/A Social History Main Topics Smoking status: Never Smoker Smokeless tobacco: Never Used Alcohol use No Drug use: No Sexual activity: Not on file Other Topics Concern Not on file Social History Narrative No narrative on file Review of Systems: Integument/breast: larger area of dehiscence at surgical site Objective: Allergies: Allergies Allergen Reactions Cephalexin SEE COMMENTS Face gets red, feels really hot, has tolerated penicillin Medications: Scheduled Meds: aspirin chewable tablet 81 mg 81 mg Oral QDAY buPROPion (WELLBUTRIN) tablet 100 mg 100 mg Oral TID busPIRone (BUSPAR) tablet 30 mg 30 mg Oral BID carbamide peroxide (DEBROX) 6.5 % otic solution 5 drop 5 drop Both Ears BID collagenase (SANTYL) topical ointment Topical QDAY docusate (COLACE) capsule 100 mg 100 mg Oral BID ferrous sulfate (FEOSOL, FEROSUL) tablet 325 mg 325 mg Oral TID w/ meals gabapentin (NEURONTIN) capsule 600 mg 600 mg Oral Q6H insulin aspart U-100 (NOVOLOG FLEXPEN) injection PEN 0-6 Units 0-6 Units Subcutaneous ACHS lactobacillus rhamnosus GG (CULTURELLE) 15 billion cell capsule 1 capsule 1 capsule Oral BID w/meals levothyroxine (SYNTHROID) tablet 200 mcg 200 mcg Oral QDAY before breakfast metFORMIN (GLUCOPHAGE) tablet 1,000 mg 1,000 mg Oral BID w/meals nortriptyline (PAMELOR) capsule 75 mg 75 mg Oral QHS oxyCODONE (ROXICODONE, OXY-IR) tablet 15 mg 15 mg Oral Once per day on Wed oxyCODONE SR (OXYCONTIN) tablet 10 mg 10 mg Oral BID pantoprazole DR (PROTONIX) tablet 40 mg 40 mg Oral QDAY(21) rivaroxaban (XARELTO) tablet 20 mg 20 mg Oral QDAY w/breakfast simvastatin (ZOCOR) tablet 20 mg 20 mg Oral QHS sitaGLIPtin (JANUVIA) tablet 100 mg 100 mg Oral QDAY sodium chloride PF 0.9% flush 20 mL 20 mL Intravenous FLUSH TID Continuous Infusions: PRN and Respiratory Meds:acetaminophen Q6H PRN, alteplase PRN (Catalogue Librarian from Rx) , alum/mag hydroxide/simeth Q6H PRN, calcium carbonate Q4H PRN, milk of magnesia (CONC) Q4H PRN, ondansetron (ZOFRAN) IV Q6H PRN, oxyCODONE Q4H PRN, pancrelipase 20,000 Units/ sodium bicarbonate 650 mg(#) PRN (Catalogue Librarian from Rx), sodium hypochlorite PRN Prescriptions Prior to Admission Medication Sig Dispense Refill Last Dose acetaminophen (TYLENOL) 500 mg tablet Take 2 tablets by mouth every 8 hours. Max of 4,000 mg of acetaminophen in 24 hours. 200 tablet 0 alum/mag hydroxide/simeth (MYLANTA, MAALOX PLUS) 200/200/20 mg/5 mL susp oral suspension Take 30 mL by mouth every 6 hours as needed. aspirin EC 81 mg tablet Take 81 mg by mouth daily. Take with food. 2017 buPROPion (WELLBUTRIN) 100 mg tablet Take 1 tablet by mouth three times daily. 90 tablet 0 busPIRone (BUSPAR) 30 mg tablet Take 30 mg by mouth twice daily. 2017 collagenase (SANTYL) 250 unit/g topical ointment Apply to left lower abdominal wound. Do not apply over incision. 0 diazePAM (VALIUM) 5 mg tablet Take 0.5-1 tablets by mouth every 8 hours as needed. [] ertapenem (INVANZ) 1 g/10 mL IVP Administer 10 mL through vein every 24 hours for 9 days. 1 each gabapentin (NEURONTIN) 300 mg capsule Take 3 capsules by mouth three times daily. 270 capsule 3 HYDROmorphone injection (DILAUDID) 2 mg/mL syrg Administer 0.5-1 mg through vein three times weekly Earliest Fill Date: 01/14/18 Only as needed for wound vac changes. Attempt to wean. insulin aspart U-100 (NOVOLOG FLEXPEN) 100 unit/mL injection PEN Inject 8 Units under the skin three times daily after meals. 45 mL 3 insulin glargine (LANTUS SOLOSTAR, BASAGLAR) 100 unit/mL (3 mL) injection PEN Inject 22 Units under the skin at bedtime daily. 45 mL 3 insulin NPH (HUMULIN N KWIKPEN) 100 unit/mL (3 mL) injection PEN Inject 30 Units under the skin daily. 45 mL 3 insulin pen needles (disposable) (BD UF LYNETTE PEN NEEDLES) 32 gauge x 5/32" pen needle Use 1 each as directed before meals and at bedtime. Use with insulin injections. 300 each 3 lactobacillus rhamnosus GG (CULTURELLE) 15 billion cell cpSP capsule Take 1 capsule by mouth as directed twice daily with meals. 90 capsule 3 levothyroxine (SYNTHROID) 175 mcg tablet Take 175 mcg by mouth daily. 11/29 lidocaine 2% (20 mg/mL) soln 50 mL by SEE ADMIN INSTRUCTIONS route three times weekly. To be used for wound vac changes PRN. Use 50 ml to infiltrate wound vac sponge prior to wound vac changes for pain control. 5 mL lisinopril (PRINIVIL; ZESTRIL) 10 mg tablet Take 10 mg by mouth daily. 08/2018 lovastatin(+) (MEVACOR) 40 mg tablet Take 40 mg by mouth at bedtime daily. 11/29/2017 [] micafungin (MYCAMINE) 100 mg/5 mL 100 mg in sodium chloride 0.9% ( NS) 0.9 % 100 mL IVPB (MB+) Administer 100 mg through vein every 24 hours for 2 days. nortriptyline (PAMELOR) 25 mg capsule Take 1 capsule by mouth at bedtime daily. oxyCODONE SR (OXYCONTIN) 20 mg tablet Take 1 tablet by mouth twice daily Earliest Fill Date: 01/14/18 0 oxycodone(+) (ROXICODONE, OXY-IR) 10 mg tablet Take 1-2 tablets by mouth every 4 hours as needed Earliest Fill Date: 01/14/18 75 tablet 0 pancrelipase 20,000 Units/ sodium bicarbonate 650 mg(#) (KU CLOG DESTROYER) 20,000 Unit/ 650 mg cap Take 1 capsule via feeding tube PRN (Catalogue Librarian from Rx) ( Occluded Feeding Tube). pantoprazole DR (PROTONIX) 40 mg tablet Take 1 tablet by mouth daily. 90 tablet 3 potassium chloride SR (K-DUR) 10 mEq tablet Take 10 mEq by mouth daily. Take with a meal and a full glass of water. 11/29/2017 rivaroxaban (XARELTO) 20 mg tablet Take 1 tablet by mouth daily with breakfast. 90 tablet 0 senna/docusate (SENOKOT-S) 8.6/50 mg tablet Take 1 tablet by mouth twice daily. 60 tablet 0 simethicone (MYLICON) 80 mg chew tablet Chew 1 tablet by mouth every 6 hours as needed for Flatulence. 30 tablet 0 vitamin A & D oint Apply topically to affected area twice daily. Apply thin layer of ointment to labial wound. Vital Signs: Last Filed Vital Signs: 24 Hour Range BP: 119/54 (02/16 1300) Temp: 37.1 C (98.8 F) (02/16 1300) Pulse: 105 (02/16 1300) Respirations: 20 PER MINUTE (02/16 1300) SpO2: 92 % (02/16 343) O2 Delivery: None (Room Air) (05/30 0343) BP: (106-121)/(51-64) Temp: [36.3 C (97.3 F)-37.1 C (98.8 F)] Pulse: [105-111] Respirations: [18 PER MINUTE-20 PER MINUTE] SpO2: [92 %-94 %] O2 Delivery: None (Room Air) Intensity Pain Scale 0-10 (Pain 1): 4 (02/16/18 0817) Wt Readings from Last 10 Encounters: 02/16/18 90.2 kg (198 lb 13.7 oz) 02/03/18 91.7 kg (202 lb 2.6 oz) 02/02/18 92.3 kg (203 lb 7.8 oz) 02/01/18 90.7 kg (200 lb) 01/14/18 102.3 kg (225 lb 8.5 oz) 12/01/17 104.3 kg (230 lb) 11/29/17 104.9 kg (231 lb 3.2 oz) Body mass index is 35.23 kg/m. Physical Exam: General appearance: alert and cooperative Neurologic: awake and alert, memory intact Lungs: clear to auscultation bilaterally Heart: regular rate and rhythm, S1, S2 normal, no murmur, click, rub or gallop Abdomen: soft, non-tender. Bowel sounds normal. No masses, no organomegaly Extremities: as described above Skin: Large areas of dehiscence with slough, eschar and granulation tissue Laboratory Review: 24-hour labs: Results for orders placed or performed during the hospital encounter of (from the past 24 hour(s)) POC GLUCOSE Collection Time: 02/15/18 5:07 PM Result Value Ref Range Glucose, POC 194 (H) 70 - 100 MG/DL POC GLUCOSE Collection Time: 02/15/18 9:10 PM Result Value Ref Range Glucose, POC 140 (H) 70 - 100 MG/DL CBC CELLULAR THERAPEUTICS Collection Time: 02/16/18 6:10 AM Result Value Ref Range White Blood Cells 9.7 4.5 - 11.0 K/UL RBC 2.93 (L) 4.0 - 5.0 M/UL Hemoglobin 7.6 (L) 12.0 - 15.0 GM/DL Hematocrit 23.0 (L) 36 - 45 % MCV 78.5 (L) 80 - 100 FL MCH 25.9 (L) 26 - 34 PG MCHC 33.0 32.0 - 36.0 G/DL RDW 21.4 (H) 11 - 15 % Platelet Count 447 (H) 150 - 400 K/UL MPV 6.5 (L) 7 - 11 FL BASIC METABOLIC PANEL CELLULAR THERAPEUTICS Collection Time: 02/16/18 6:10 AM Result Value Ref Range Sodium 138 137 - 147 MMOL/L Potassium 4.0 3.5 - 5.1 MMOL/L Chloride 102 98 - 110 MMOL/L CO2 28 21 - 30 MMOL/L Anion Gap 8 3 - 12 Glucose 87 70 - 100 MG/DL Blood Urea Nitrogen 8 7 - 25 MG/DL Creatinine 0.72 0.4 - 1.00 MG/DL Calcium 8.8 8.5 - 10.6 MG/DL eGFR Non >60 >60 mL/min eGFR >60 >60 mL/min POC GLUCOSE Collection Time: 02/16/18 6:54 AM Result Value Ref Range Glucose, POC 90 70 - 100 MG/DL POC GLUCOSE Collection Time: 02/16/18 11:52 AM Result Value Ref Range Glucose, POC 189 (H) 70 - 100 MG/DL POC GLUCOSE Collection Time: 02/16/18 1:18 PM Result Value Ref Range Glucose, POC 119 (H) 70 - 100 MG/DL POC GLUCOSE Collection Time: 02/16/18 3:10 PM Result Value Ref Range Glucose, POC 106 (H) 70 - 100 MG/DL X-Ray: No pertinent radiology. 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 Surgical Debridement: No Wound Orders/Recommendations: Weight Bearing Activity: Other; compression Support Surface: Other Positioning: Turn every 2 hours to relieve pressure Labs: Pre-Albumin Orders Wound Site: left pelvis VAC dressing to open area Santyl to slough areas Wound Dimensions (as per W/C nursing assessment): Wounds (NOT for Pressure Injuries) 11/30/17 0853 Left Buttocks Surgical Incision (Active) 11/30/17 0853 Buttocks Wound Orientation: Left Wound Type: Surgical Incision Wound Type:: Wound Description (Comments): Carlos Manuel Rosales Drain, Sutures, xeroform, 4x4's, and tegaderm. Wound Image 02/09/2018 11:40 AM Agree With My Assessment? Yes 02/08/2018 12:00 AM Wound Base Assessment Dressing intact, base not assessed 02/16/2018 11:00 AM Surrounding Skin Assessment Dry;Intact 02/16/2018 11:00 AM Wound Site Closure Ceci 02/16/2018 11:00 AM Wound Drainage Amount None 02/16/2018 11:00 AM Wound Drainage Description Serosanguineous 02/15/2018 12:00 PM Wound Dressing Status Intact 02/16/2018 11:00 AM Wound Dressing and / or Treatment Hydrofera Blue 02/16/2018 11:00 AM Wound Length (cm) (Wound Team Only) 21 cm 02/09/2018 11:40 AM Wound Width (cm) (Wound Team Only) 5.5 cm 02/09/2018 11:40 AM Wound Depth (cm) (Wound Team Only) 2.5 02/09/2018 11:40 AM Wound Volume (cm^3) (Wound Team Only) 288.75 cm^3 02/09/2018 11:40 AM Wound Healing % (Wound Team Only) -2650 02/09/2018 11:40 AM Number of days: 78 Wounds (NOT for Pressure Injuries) 11/30/17 1427 Right;Anterior Neck Surgical Incision (Active) 11/30/17 1427 Neck Wound Orientation: Right;Anterior Wound Type: Surgical Incision Wound Type:: Wound Description (Comments): Number of days: 78 Wounds (NOT for Pressure Injuries) 12/14/17 1748 Left Abdomen Ulcer (not from pressure) (Active) 12/14/17 1748 Abdomen Wound Orientation: Left Wound Type: Ulcer (not from pressure) Wound Type:: Wound Description (Comments): Wound Image 02/09/2018 11:40 AM Agree With My Assessment? Yes 02/08/2018 12:00 AM Wound Base Assessment Dressing intact, base not assessed 02/16/2018 11:00 AM Surrounding Skin Assessment Intact;[place];Purple 02/16/2018 11:00 AM Wound Site Closure None 02/16/2018 11:00 AM Wound Drainage Amount Small 02/15/2018 12:00 PM Wound Drainage Description Gall[place] 02/15/2018 12:00 PM Wound Dressing Status Intact 02/16/2018 11:00 AM Wound Dressing and / or Treatment Collagenase;Abdominal Pad;Hypafix Tape 2017 11:00 AM Wound Length (cm) (Wound Team Only) 5.5 cm 02/09/2018 11:40 AM Wound Width (cm) (Wound Team Only) 19 cm 02/09/2018 11:40 AM Wound Depth (cm) (Wound Team Only) 0.1 02/09/2018 11:40 AM Wound Volume (cm^3) (Wound Team Only) 10.45 cm^3 02/09/2018 11:40 AM Wound Healing % (Wound Team Only) -24.4 02/09/2018 11:40 AM Wound Status (Wound Team Only) Being Treated 02/09/2018 11:40 AM Number of days: 64 Wounds (NOT for Pressure Injuries) 12/20/17 1530 Right;Lower Abdomen Moisture Associated Skin Damage (Active) 12/20/17 1530 Abdomen Wound Orientation: Right;Lower Wound Type: Moisture Associated Skin Damage Wound Type:: Wound Description (Comments): Agree With My Assessment? Yes 02/08/2018 12:00 AM Wound Base Assessment Clean;Dry 02/16/2018 11:00 AM Surrounding Skin Assessment Intact 02/16/2018 11:00 AM Wound Site Closure Open to Air 02/16/2018 11:00 AM Wound Drainage Amount None 02/16/2018 11:00 AM Wound Drainage Description Serosanguineous 02/15/2018 9:00 PM Wound Dressing Status Open to Air 02/16/2018 11:00 AM Wound Dressing and / or Treatment Interdry [employer] Textile 02/05/2018 4:00 PM Number of days: 58 Wounds (NOT for Pressure Injuries) 12/23/17 1345 Left Labia (Active) 12/23/17 1345 Labia Wound Orientation: Left Wound Type: Wound Type:: Wound Description (Comments): Agree With My Assessment? Yes 02/08/2018 12:00 AM Wound Base Assessment Clean;[place] 02/16/2018 11:00 AM Surrounding Skin Assessment Intact;Edema 02/16/2018 11:00 AM Wound Site Closure None 02/16/2018 11:00 AM Wound Drainage Amount Copious 02/16/2018 11:00 AM Wound Drainage Description Creamy 02/10/2018 11:00 AM Wound Dressing Status Open to Air 02/16/2018 11:00 AM Wound Dressing and / or Treatment Collagenase 02/15/2018 8:10 AM Wound Length (cm) (Wound Team Only) 2 cm 02/04/2018 4:00 PM Wound Width (cm) (Wound Team Only) 0.8 cm 02/04/2018 4:00 PM Wound Depth (cm) (Wound Team Only) 0.1 02/04/2018 4:00 PM Wound Volume (cm^3) (Wound Team Only) 0.16 cm^3 02/04/2018 4:00 PM Wound Healing % (Wound Team Only) 91.47 02/04/2018 4:00 PM Number of days: 55 Wounds (NOT for Pressure Injuries) 12/30/17 1002 Left;Anterior Surgical Incision stump (Active) 12/30/17 1002 Wound Orientation: Left;Anterior Wound Type: Surgical Incision Wound Type:: stump Wound Description (Comments): Suture, ceci, telfa and iodine, 4x4, and tegaderm Wound Image 02/09/2018 11:40 AM Agree With My Assessment? Yes 02/08/2018 12:00 AM Wound Base Assessment Dressing intact, base not assessed 02/16/2018 11:00 AM Surrounding Skin Assessment Intact;[place] 02/16/2018 11:00 AM Wound Site Closure [place] 02/16/2018 11:00 AM Wound Drainage Amount Scant 02/16/2018 11:00 AM Wound Drainage Description Serosanguineous 02/16/2018 11:00 AM Wound Dressing Status Intact 02/15/2018 9:00 PM Wound Dressing and / or Treatment Hydrofera Blue 02/16/2018 11:00 AM Wound Length (cm) (Wound Team Only) 16 cm 02/09/2018 11:40 AM Wound Width (cm) (Wound Team Only) 25.5 cm 02/09/2018 11:40 AM Wound Depth (cm) (Wound Team Only) 0.1 02/09/2018 11:40 AM Wound Volume (cm^3) (Wound Team Only) 40.8 cm^3 02/09/2018 11:40 AM Wound Healing % (Wound Team Only) -19.44 02/09/2018 11:40 AM Number of days: 48 Wounds (NOT for Pressure Injuries) 01/10/18 1100 Hip Surgical Incision (Active) 01/10/18 1100 Hip Wound Orientation: Wound Type: Surgical Incision Wound Type:: Wound Description (Comments): XEROFORM, 4X4S, HYPAFIX, WOUND VAC Wound Image 02/09/2018 11:40 AM Agree With My Assessment? Yes 02/08/2018 12:00 AM Wound Base Assessment Dressing intact, base not assessed 02/16/2018 11:00 AM Surrounding Skin Assessment Dry;Intact;[place] 02/16/2018 11:00 AM Wound Site Closure Wound Adhesive Bandage 02/15/2018 12:00 PM Wound Drainage Amount Moderate 02/16/2018 11:00 AM Wound Drainage Description Serous 02/16/2018 11:00 AM Wound Dressing Status Intact 02/16/2018 11:00 AM Wound Dressing and / or Treatment VAC sponge - black;VAC tx: Continuous, Intermittent;VAC @ ___ mm/Hg 02/15/2018 12:00 PM Wound Length (cm) (Wound Team Only) 17.5 cm 02/09/2018 11:40 AM Wound Width (cm) (Wound Team Only) 29 cm 02/09/2018 11:40 AM Wound Depth (cm) (Wound Team Only) 20 02/09/2018 11:40 AM Wound Volume (cm^3) (Wound Team Only) 95501 cm^3 02/09/2018 11:40 AM Wound Healing % (Wound Team Only) -333.76 02/09/2018 11:40 AM Wound Status (Wound Team Only) Being Treated 02/09/2018 11:40 AM Tunneling in CM (Wound Team Only) 15 cm 02/04/2018 4:00 PM Tunnelling Location 3 02/04/2018 4:00 PM Number of days: 37 Wounds (NOT for Pressure Injuries) 01/10/18 Left;Inner;Posterior Buttocks Surgical Incision (Active) 01/10/18 Buttocks Wound Orientation: Left;Inner;Posterior Wound Type: Surgical Incision Wound Type:: Wound Description (Comments): Wound Image 02/09/2018 11:40 AM Agree With My Assessment? Yes 02/15/2018 9:00 PM Wound Base Assessment Dressing intact, base not assessed 02/16/2018 11:00 AM Surrounding Skin Assessment Intact;[place] 02/16/2018 11:00 AM Wound Site Closure None 02/15/2018 12:00 PM Wound Drainage Amount None 02/16/2018 11:00 AM Wound Drainage Description [place] 02/15/2018 12:00 PM Wound Dressing Status Intact 02/16/2018 11:00 AM Wound Dressing and / or Treatment Hydrofera Blue 02/16/2018 11:00 AM Wound Length (cm) (Wound Team Only) 6 cm 02/09/2018 11:40 AM Wound Width (cm) (Wound Team Only) 12.5 cm 02/09/2018 11:40 AM Wound Depth (cm) (Wound Team Only) 0.1 02/09/2018 11:40 AM Wound Volume (cm^3) (Wound Team Only) 7.5 cm^3 02/09/2018 11:40 AM Wound Healing % (Wound Team Only) -15.38 02/09/2018 11:40 AM Number of days: 37 [REMOVED] Pressure Injury 01/14/18 1730 Right Ear Unstageable (Removed) 01/14/18 1730 Ear Pressure Injury Orientation: Right Pressure Injury Stages: Unstageable Pressure Injury Present On Admission: Y If this pressure injury is suspected to be device related, please select the device:: Tubing (Oxygen / Wound Vac / Drain) Removed 01/23/18 1843 Wound Dressing Status Open to Air 01/23/2018 8:25 PM Wound Drainage Amount None 01/23/2018 8:25 PM Wound Base Assessment [place] 01/23/2018 8:25 PM Surrounding Skin Assessment Dry;Intact 01/23/2018 8:25 PM [REMOVED] Ileal Conduit 12/30/17 1115 Left (Removed) 12/30/17 1115 Left Removed 12/30/17 1607 Colostomy 12/30/17 1209 Right (Active) 12/30/17 1209 Right Agree With My Assessment? Yes 02/09/2018 5:00 AM Stoma Assessment Clean;Red 02/16/2018 9:00 AM Drainage Description Brown 02/16/2018 9:00 AM Peristomal Skin Assessment Dry;Intact 02/16/2018 9:00 AM Dressing Status Intact 02/16/2018 9:00 AM Stoma Miscellaneous Other (Comment) 02/05/2018 8:00 AM Drain Output (ml) 100 ml 02/16/2018 10:00 AM Wound Care Team to follow, as will I. Thank you for this consultation of this patient. Continue HBOT to total of 20 treatments with reassessment at that time. The patient is in agreement with the treatment plan. The patient is exhibiting improvement specifically improvement in the granulation base with healing, improvement in margins of eschar, reduction of lymphedema, reduction in drainage, and no progression of dehiscence. * Ruth Allen MD - 02/16/2018 1:26 PM CDT Formatting of this note may be different from the original. ATTESTATION I personally performed the banuelos portions of the E/M visit, discussed case with resident and concur with resident documentation of history, physical exam, assessment, and treatment plan unless otherwise noted. Labs and VS reviewed and stable. No fevers. Cont to monitor off abx. Will f/u with wound care team about possible d/c Melchor. Per OT and nursing, feasible to do bedside commode transfers for toileting. HBOT extended to 03/01 due to missed treatments. Will have to extend rehab stay until 03/02. Per d/w rehab team at conference, patient making progress towards goal of mod I with manual wheelchair, slideboard, RW, hospital bed, ramp. Tentative discharge date 03/02/18 pending HBOT and wound healing. Progress this week, LB dressing mod A, stand pivot transfers, trial hopping in // bars. Recommending HH therapies at time of discharge from rehab. Time spent with patient, majority spent on counseling patient/family and rest on coordination of rehab plan of care: 25 minutes Time spent coordination care/discharge in team huddle/conference: 10 minutes Total time: 35 minutes Staff name: Ruth Allen MD Date: 02/16/2018 Physical Medicine & Rehabilitation Progress Note Today's Date: 02/16/2018 Admission Date: 01/14/2018 LOS: 33 days Insurance: [facility] Principal Problem: Left hip amputation status Active Problems: Chondrosarcoma (HCC) Acute blood loss as cause of postoperative anemia Depression Anxiety DM (diabetes mellitus) (HCC) 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 Chronic pain Post-op pain Bacteremia Amputated left leg (HCC) Candiduria Assessment/Plan: Beata Lema a 52 y.o.female[facility] the following issues : 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 Patient will need a modified schedule of 15 hours over 7 days to accommodate HBOT schedule. Goals: household mobility at wheelchair level mod I Tentative discharge date: 03/02/18 Recommended therapy after discharge: home health OT/PT Recommended equipment: Hospital bed, wheelchair/cushion, slideboard, ramp - Patient requires hospital bed at discharge. Patient requires positioning of the body in ways not feasible with ordinary beds to in order to alleviate pain. Patient requires frequent repositioning of the body and/or has an immediate need for change in body position. - Due to patients functional limitations they require a manual wheelchair for independent mobility in the home. A therapy evaluation was completed during their inpatient rehab stay to assess the most appropriate wheelchair for the patient. Daily Functional Update: Transfers Device Sit to Stand Transfer: Assistive Device: Roller Walker (02/16/2018 8:15 AM) No Data Recorded Gait Device Assist Required Distance Gait: Assistive Device: Parallel Bars;Wheelchair Follow (02/15/2018 9:00 AM) No Data Recorded Gait Distance: 5 feet (x 2) (02/15/2018 9:00 AM) Toileting Assist Required Equipment Toilet Transfer Toileting Assist: Total Assist (02/09/2018 8:30 AM) No Data Recorded No Data Recorded Dressing Lower Body LE Dressing Assist: Moderate Assist (02/16/2018 8:15 AM) Chrondrosarcoma s/p hemipelvectomy and hemisacrectomy Lymphedema wound and residual limb >wound vac in place. Changes M/W/F by wound vac team. PO 15mg oxycodone MWF for [place] changes + lidocaine into sponge during acute hospitalization - weaned off IV pain meds >Plan on 20 treatment of HBOT M-F in late afternoon Post-op pain in setting of chronic pain Phantom limb pain, neuropathic pain >Tylenol, oxycontin 10mg BID and oxycodone 20mg q3h prn. Lidoderm patch prn. > Continue nortriptyline 75mg QHS > Continue gabapentin 600mg Q6h Tremors - improving -Likely related to gabapentin >improved with decrease gabapentin to 600mg Q6h s/p diverting colostomy - Stool saturating wound. Diverting colostomy done 12/30 >wound/ostomy consulted, working on education with nursing Bladder injury, recent repair - bladder and urethral injuries during hemipelvectomy on 12/14/17 - underwent cystoscopy with left ureteral stent insertion, Bladder neck repair, Urethroplasty and repair of urethral injury, Vaginal closure >continue melchor catheter, last changed 02/11 > Per ortho/urology/plastics ok to d/c melchor. Will f/u with and wound care Chest lesions (metastases?) - 11/26/17 CT: few small pulmonary nodules. >Per CTS ok to repeat CT chest once discharged on a outpatient basis GBS bacteremia w/ sepsis due to left hip wound - Fever and leukocytosis began 12/20/17, Bcx 1/ positive for GBS on 12/23 - Completed course of abx 01/23 ertapenem > Multiple fevers 01/26 in pm, started Vanc/Meropenem and obtained blood cx x2 and UA/reflex cx - 09/21 bcx contaminated, rest NGTD > Repeat blood cx's 01/31 NGTD > IV Abx d/c per ID 02/15, will monitor off of abx DVT - 11/30/17 IVC filter for DVT within the external iliac vein >cont Xarelto ABLA - Transfusion 01/15 and 01/28 1U PRBC - monitor labs T2DM - A1c 6.5%, controlled - CAMP TENDER regimen: Metformin thousand milligrams twice a day, [id number] mg daily (resume at discharge) > Correction factor > Metformin 1000mg BID, Januvia 100mg daily 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 - CAMP TENDER 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 daily - TSH 2.1 this admission >levothyroxine increased 200 mcg on 01/26 >She will need repeat thyroid function tests in 6-8 weeks (~March 08) Major depressive disorder, recurrent, moderate CLAUDIA Adjustment disorder with mixed anxiety and depressed mood > continue CAMP TENDER Wellbutrin and buspar, started on nortriptyline this admission Nutrition -Pt is currently meeting caloric and protein needs > weekly prealbumin and albumin - remains low > D/c corpak 02/02 > Continue current diet with protein supplementation HLD: holding CAMP TENDER statin Insomnia: nortriptyline 75mg qhs DVT Prophylaxis:Xarelto, will discharge on it Ravi Pride, DO Subjective NEON. Pt sitting up in bed working with OT when seen this am. Pt stated her sleepiness improved after decreasing dose of nortriptyline yesterday. Her tremors continue to improve. Will f/u with and wound care if they are ok with melchor being d/c. Objective Vital Signs: Last Filed Vital Signs: 24 Hour Range BP: 106/51 (02/16 343) Temp: 37.1 C (98.8 F) (02/16 034) Pulse: 109 (02/16 343) Respirations: 18 PER MINUTE (02/16 343) SpO2: 92 % (02/16 343) O2 Delivery: None (Room Air) (02/16 343) BP: (106-121)/(51-64) Temp: [36.3 C (97.3 F)-37.1 C (98.8 F)] Pulse: [109-111] Respirations: [18 PER MINUTE] SpO2: [92 %-94 %] O2 Delivery: None (Room Air) Intensity Pain Scale 0-10 (Pain 1): 4 (02/16/18 0817) Vitals: 02/13/18 2200 02/15/18 0600 02/16/18 0356 Weight: 86 kg (189 lb 9.5 oz) 88.8 kg (195 lb 12.3 oz) 90.2 kg (198 lb 13.7 oz) Intake/Output Summary: (Last 24 hours) Intake/Output Summary (Last 24 hours) at 02/16/18 1326 Last data filed at 02/16/18 1000 Gross per 24 hour Intake 830 ml Output 3250 ml Net -2420 ml Stool Occurrence: 0 Oral Diet Order: Diabetic [id number] Kcal/day (60 g Carb/meal, 30 g Carb/HS snack ) Last BM Date: 02/16/18 Lab: Results for orders placed or performed during the hospital encounter of (from the past 24 hour(s)) POC GLUCOSE Collection Time: 02/15/18 3:07 PM # # Low-High Glucose, POC 182 (H) 70 - 100 MG/DL POC GLUCOSE Collection Time: 02/15/18 5:07 PM # # Low-High Glucose, POC 194 (H) 70 - 100 MG/DL POC GLUCOSE Collection Time: 02/15/18 9:10 PM # # Low-High Glucose, POC 140 (H) 70 - 100 MG/DL CBC CELLULAR THERAPEUTICS Collection Time: 02/16/18 6:10 AM # # Low-High White Blood Cells 9.7 4.5 - 11.0 K/UL RBC 2.93 (L) 4.0 - 5.0 M/UL Hemoglobin 7.6 (L) 12.0 - 15.0 GM/DL Hematocrit 23.0 (L) 36 - 45 % MCV 78.5 (L) 80 - 100 FL MCH 25.9 (L) 26 - 34 PG MCHC 33.0 32.0 - 36.0 G/DL RDW 21.4 (H) 11 - 15 % Platelet Count 447 (H) 150 - 400 K/UL MPV 6.5 (L) 7 - 11 FL BASIC METABOLIC PANEL CELLULAR THERAPEUTICS Collection Time: 02/16/18 6:10 AM # # Low-High Sodium 138 137 - 147 MMOL/L Potassium 4.0 3.5 - 5.1 MMOL/L Chloride 102 98 - 110 MMOL/L CO2 28 21 - 30 MMOL/L Anion Gap 8 3 - 12 Glucose 87 70 - 100 MG/DL Blood Urea Nitrogen 8 7 - 25 MG/DL Creatinine 0.72 0.4 - 1.00 MG/DL Calcium 8.8 8.5 - 10.6 MG/DL eGFR Non >60 >60 mL/min eGFR >60 >60 mL/min POC GLUCOSE Collection Time: 02/16/18 6:54 AM # # Low-High Glucose, POC 90 70 - 100 MG/DL POC GLUCOSE Collection Time: 02/16/18 11:52 AM # # Low-High Glucose, POC 189 (H) 70 - 100 MG/DL POC GLUCOSE Collection Time: 02/16/18 1:18 PM # # Low-High Glucose, POC 119 (H) 70 - 100 MG/DL Scheduled Meds: aspirin chewable tablet 81 mg 81 mg Oral QDAY buPROPion (WELLBUTRIN) tablet 100 mg 100 mg Oral TID busPIRone (BUSPAR) tablet 30 mg 30 mg Oral BID carbamide peroxide (DEBROX) 6.5 % otic solution 5 drop 5 drop Both Ears BID collagenase (SANTYL) topical ointment Topical QDAY docusate (COLACE) capsule 100 mg 100 mg Oral BID ferrous sulfate (FEOSOL, FEROSUL) tablet 325 mg 325 mg Oral TID w/ meals gabapentin (NEURONTIN) capsule 600 mg 600 mg Oral Q6H insulin aspart U-100 (NOVOLOG FLEXPEN) injection PEN 0-6 Units 0-6 Units Subcutaneous ACHS lactobacillus rhamnosus GG (CULTURELLE) 15 billion cell capsule 1 capsule 1 capsule Oral BID w/meals levothyroxine (SYNTHROID) tablet 200 mcg 200 mcg Oral QDAY before breakfast metFORMIN (GLUCOPHAGE) tablet 1,000 mg 1,000 mg Oral BID w/meals nortriptyline (PAMELOR) capsule 75 mg 75 mg Oral QHS oxyCODONE (ROXICODONE, OXY-IR) tablet 15 mg 15 mg Oral Once per day on Wed oxyCODONE SR (OXYCONTIN) tablet 10 mg 10 mg Oral BID pantoprazole DR (PROTONIX) tablet 40 mg 40 mg Oral QDAY(21) rivaroxaban (XARELTO) tablet 20 mg 20 mg Oral QDAY w/breakfast simvastatin (ZOCOR) tablet 20 mg 20 mg Oral QHS sitaGLIPtin (JANUVIA) tablet 100 mg 100 mg Oral QDAY sodium chloride PF 0.9% flush 20 mL 20 mL Intravenous FLUSH TID Continuous Infusions: PRN and Respiratory Meds:acetaminophen Q6H PRN, alteplase PRN (Catalogue Librarian from Rx) , alum/mag hydroxide/simeth Q6H PRN, calcium carbonate Q4H PRN, milk of magnesia (CONC) Q4H PRN, ondansetron (ZOFRAN) IV Q6H PRN, oxyCODONE Q4H PRN, pancrelipase 20,000 Units/ sodium bicarbonate 650 mg(#) PRN (Catalogue Librarian from Rx), sodium hypochlorite PRN Physical Exam VS: BP 106/51 (BP Source: Arm, Left) | Pulse 109 | Temp 37.1 C (98.8 F) | Ht 160 cm (63") | Wt 90.2 kg (198 lb 13.7 oz) | LMP 01/14/2013 | SpO2 92% | BMI 35.23 kg/m Gen: awake, alert, NAD HEENT: NCAT, MMM CV: RRR, no murmur Pulm: CTAB, no w/r Abd: nondistended, nontender Extremities: mild edema rle, s/p hemipelvectomy on left with dressings and wound vac in place. Psych: Pleasent mood Therapy Notes & Labs Reviewed. * Tamara Reilly - 02/16/2018 1:05 PM CDT Patient has left the unit for hyperbaric TX at this time via ROBYN chen. 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 PMH of DM (A1c 6.5) and depression. Pt with stool soilage issues prohibiting wound healing had colostomy 12/30. TPN was added to enhance nutrition followed by supplemental EN. I&D with wound vac 01/10; continues. Pt receiving hyperbaric treatments for wound healing ; 20 txs planned. EN dc'd with pt meeting goals via oral intake x 12+ days. Pt continues to report a good appetite and is eating adequately 3 meals/day. Added protein supplements have decreased. Discussed with NSG in team conference, need to continue encouraging use of added protein due to pt not being a big protein eater. Encouraged pt to continue and she was receptive. Reviewed importance of spreading protein supplements apart for best absorption (not to exceed 2 at a time). Reviewed with pt protein amount in Boost GC and Prosource are 15g each and variation is okay, especially in times of satiety. Stressed induced hyperglycemia is improving; pt with h/o well controlled DM on metformin. BG 90- 194 x 24 hrs; Metformin, Januvia, LDCF, Novolog, Lantus on board. Pt may not need SSI on discharge per team conference. +FCD 02/15. Abx course complete, Culturelle continues. Weight down, reflective in net I/O of -41L total. Pt noted to be still be overwhelmed and tearful at times; will wait until closer to discharge to discuss DM diet review needs. No other concerns. Recommendation: Continue current diet order. Note pt does not consume adequate protein from meal intake; encourage use of Boost GC and Prosource daily. Spread protein supplements out through day for better absorption. Each supplement provides ~15g protein; may replace Boost GC with additional Prosource if needed. Intervention / Plan: f/u with DM diet review, protein powder rec prior to dc Encouraged continued use of Boost GC and Prosource Monitor PO intake, wt, labs, skin, gi, meds, fluids Nutrition Diagnosis: Nutrition Diagnosis: Increased nutrient needs, specify: Etiology: protein: demand for wound healing Signs & Symptoms: s/p hemipelvectomy Goals: PO intake to meet >85% nutritional needs Time Frame: Prior to Discharge Status: Met;Ongoing Verbalize understanding of diet (review DM diet ) Time Frame: Prior to Discharge Leia Zimmerman RD, LD *[id number] * Lianne Tadeo RN - 02/15/2018 1:10 PM CDT Per therapy, patient emptied colostomy by herself one time. Will continue to encourage independence with colostomy care. * Jennifer Diaz RN - 02/15/2018 12:00 PM CDT Formatting of this note may be different from the original. Wound Ostomy Nursing Consult Service NAME:Beata Kaiser :1965 AGE: 52 y.o. ADMISSION DATE: 01/14/2018 DAYS ADMITTED: LOS: 32 days Reason for Visit: wound VAC Assessment/Plan: Principal Problem: Left hip amputation status Active Problems: Chondrosarcoma (HCC) Acute blood loss as cause of postoperative anemia Depression Anxiety DM (diabetes mellitus) (HCC) 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 Chronic pain Post-op pain Bacteremia Amputated left leg (HCC) Candiduria Wounds (NOT for Pressure Injuries) 11/30/17 0853 Left Buttocks Surgical Incision (Active) 11/30/17 0853 Buttocks Wound Orientation: Left Wound Type: Surgical Incision Wound Type:: Wound Description (Comments): Carlos Manuel Rosales Drain, Sutures, xeroform, 4x4's, and tegaderm. Wound Base Assessment Black;Gallardo;Necrotic tissue 02/15/2018 12:00 PM Surrounding Skin Assessment Dry;Intact 02/15/2018 12:00 PM Wound Site Closure Ceci 02/15/2018 12:00 PM Wound Drainage Amount Small 02/15/2018 12:00 PM Wound Drainage Description Serosanguineous 02/15/2018 12:00 PM Wound Dressing Status Changed 02/15/2018 12:00 PM Wound Dressing and / or Treatment Hydrofera Blue Ready;Hypafix Tape 02/15/2018 12 :00 PM Wounds (NOT for Pressure Injuries) 12/14/17 1748 Left Abdomen Ulcer (not from pressure) (Active) 12/14/17 1748 Abdomen Wound Orientation: Left Wound Type: Ulcer (not from pressure) Wound Type:: Wound Description (Comments): Wound Base Assessment Moist;Yellow;Slough 02/15/2018 12:00 PM Surrounding Skin Assessment Intact;[place];Purple 02/15/2018 12:00 PM Wound Site Closure None 02/15/2018 12:00 PM Wound Drainage Amount Small 02/15/2018 12:00 PM Wound Drainage Description Gallardo 02/15/2018 12:00 PM Wound Dressing Status Changed 02/15/2018 12:00 PM Wound Dressing and / or Treatment Collagenase;Abdominal Pad;Hypafix Tape 2017 12:00 PM Wounds (NOT for Pressure Injuries) 12/30/17 1002 Left;Anterior Surgical Incision stump (Active) 12/30/17 1002 Wound Orientation: Left;Anterior Wound Type: Surgical Incision Wound Type:: stump Wound Description (Comments): Suture, ceci, telfa and iodine, 4x4, and tegaderm Wound Base Assessment Dry;Black;Eschar 02/15/2018 12:00 PM Surrounding Skin Assessment Purple;Pale;[place] 02/15/2018 12:00 PM Wound Site Closure [place] 02/15/2018 12:00 PM Wound Drainage Amount Scant 02/15/2018 12:00 PM Wound Drainage Description Serosanguineous 02/15/2018 12:00 PM Wound Dressing Status Changed 02/15/2018 12:00 PM Wound Dressing and / or Treatment Hydrofera Blue Ready;Hypafix Tape 02/15/2018 12 :00 PM Wounds (NOT for Pressure Injuries) 01/10/18 1100 Hip Surgical Incision (Active) 01/10/18 1100 Hip Wound Orientation: Wound Type: Surgical Incision Wound Type:: Wound Description (Comments): XEROFORM, 4X4S, HYPAFIX, WOUND VAC Wound Base Assessment Moist;Red;Gallardo 02/15/2018 12:00 PM Surrounding Skin Assessment Dry;Intact;[place] 02/15/2018 12:00 PM Wound Site Closure Wound Adhesive Bandage 02/15/2018 12:00 PM Wound Drainage Amount Moderate 02/15/2018 12:00 PM Wound Drainage Description Mucous;Serous 02/15/2018 12:00 PM Wound Dressing Status Changed 02/15/2018 12:00 PM Wound Dressing and / or Treatment VAC sponge - black;VAC tx: Continuous;VAC @ - 125 mm/Hg 02/15/2018 12:00 PM Wounds (NOT for Pressure Injuries) 01/10/18 Left;Inner;Posterior Buttocks Surgical Incision (Active) 01/10/18 Buttocks Wound Orientation: Left;Inner;Posterior Wound Type: Surgical Incision Wound Type:: Wound Description (Comments): Wound Base Assessment Gallardo;Black;Moist 02/15/2018 12:00 PM Surrounding Skin Assessment Intact;[place] 02/15/2018 12:00 PM Wound Site Closure None 02/15/2018 12:00 PM Wound Drainage Amount Small 02/15/2018 12:00 PM Wound Drainage Description Gallardo 02/15/2018 12:00 PM Wound Dressing Status Changed 02/15/2018 12:00 PM Wound Dressing and / or Treatment Hydrofera Blue Ready;Hypafix Tape 02/15/2018 12 :00 PM Procedure: Negative Wound Therapy Dressing Change Anesthesia Type: Not Applicable or None Provider(s) and Role: RN Negative Wound Pressure Device Type: KCI VAC Contact layer: None Wound dimension (length x width x depth, tunneling, undermining): Number of sponges in the wound prior to dressing change: None - VAC removed over weekend due to inability to maintain seal Number of sponges removed from the wound: None - VAC removed over weekend due to inability to maintain seal Type of sponge: Black foam Number of sponges placed in the wound: 5 Jennifer Diaz RN Wound VAC dressing connected to wound VAC with settings of continuous -125mmHg. Next dressing change planned 02/18. Left anterior hip, left lower buttock/groin, left mid buttock wounds all dressed with Hydrofera Blue Ready and secured with hypafix tape. Ok to leave in place until next wound VAC dressing change. Left lower abdomen crease wound dressed with Santyl and ABD dressing. This dressing will need to be changed daily by bedside RN. Will continue to follow. Jennifer Diaz RN, BSN, CWON Wound/Ostomy Nursing Consult Service Office: [phone] Pager: [phone] Wound/Ostomy Team Pager (After Hours/Weekends): [phone] * Linus Pisano MD - 02/15/2018 11:58 AM CDT Formatting of this note may be different from the original. Endocrinology Progress Note Beata Kaiser Date of Admission: 01/14/2018 Impression: 1. DM type 2 with stress hyperglycemia 2. Hypoglycemia A1c6.5, controlled CAMP TENDER regimen: Metformin 1000mg BID, [id number] mg daily Hypoglycemic episodes on this regimen: None and not checking blood sugars at home Follows up with for diabetes management:Primary care physician at [facility]-complications assessment: Retinopathy: None Peripheral neuropathy: Yes on treatment Autonomic neuropathy:None Nephropathy: None Macrovascular complications:None Risk factor assessment: Last lipid profile - None on file On ACEi/ARB: Yes On Statin: yes 3. 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 CAMP TENDER 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 daily TSH 2.1 this admission Forgets to take her levothyroxine sometime 4. Enteral Nutrition- discontinued on 02/02/18 5. Left leg amputation Wound Vac 6. Hyperlipidemia On lovastatin 7. Chondorsarcoma Pelvis s/p hemipelvectomy 8. Obesity Class III Recommendations: We reduce aspart correction factor to be started when blood glucose greater than 180 instead of 140. Continue Metformin 1000 mg BID Continue Januvia 100mg daily. Plan to resume Home CAMP TENDER regimen at discharge : Metformin 1000mg BID, [id number] mg daily and discontinue Januvia at time of discharge. Continue LT4 therapy ? Increased to 200mcg on 01.25.2018 due to continued elevation of TSH / low range normal FT4 ? Repeat TSH testing in 6 weeks, ~ March 08, 2018 Since her glycemic control has been stable, endocrine will sign off. Please call us for any questions or concerns. __ Subjective: Beata Kaiser is a 52 y.o. female. No acute events overnight. No hypoglycemic episodes. Blood glucose of 86 before dinner yesterday. She denied symptoms of hypoglycemia. On ROS: Denies chest pain, shortness of breath. Objective: Vital Signs: Last Filed Vital Signs: 24 Hour Range BP: 106/62 (02/15 453) Temp: 36.8 C (98.2 F) (02/15 453) Pulse: 109 (02/15 453) Respirations: 18 PER MINUTE (02/15 453) SpO2: 93 % (02/15 453) O2 Delivery: None (Room Air) (02/15 453) BP: (106-114)/(60-62) Temp: [36.4 C (97.6 F)-37.6 C (99.7 F)] Pulse: [109-118] Respirations: [18 PER MINUTE] SpO2: [93 %] O2 Delivery: None (Room Air) Intake/Output Summary (Last 24 hours) at 02/15/18 1159 Last data filed at 02/15/18 0850 Gross per 24 hour Intake 500 ml Output 3075 ml Net -2575 ml Physical Examination: GEN: Alert, oriented, no apparent distress HEENT: No scleral icterus/pallor RESP: Breathing comfortably EXT: s/p left hemipelvectomy Labs: Recent Labs 02/13/18 1653 02/13/18 2102 02/14/18 0652 02/14/18 1212 02/14/18 1608 02/14/18 1651 02/14/18 2116 02/15/18 0655 GLUPOC 129* 124* 93 150* 86 86 129* 121* Recent Labs 02/14/18 0630 NA 137 K 3.9 CL 102 CO2 29 GAP 6 BUN 9 CR 0.67 GLU 90 CA 8.9 Recent Labs 02/13/18 0630 02/13/18 1508 02/14/18 0630 02/14/18 1632 WBC 9.3 12.1* 10.0 12.0* HGB 8.1* 8.1* 7.6* 7.8* HCT 24.3* 24.4* 23.3* 23.9* PLTCT 455* 501* 463* 546* Lipid Profile: Lab Results Component Value Date TRIG 254 01/13/2018 Estimated Creatinine Clearance: 99.4 mL/min (based on SCr of 0.67 mg/dL). Vitals: 02/12/18 0700 02/13/18 2200 02/15/18 0600 Weight: 91.9 kg (202 lb 9.6 oz) 86 kg (189 lb 9.5 oz) 88.8 kg (195 lb 12.3 oz) No results for input(s): PHART, PO2ART in the last 72 hours. Invalid input(s): PC02A Thyroid Studies Lab Results Component Value Date/Time TSH 10.130 (H) 01/25/2018 05:46 AM No results found for: FREET3, E4EDMCHYA, THYBINDGLB Meds aspirin 81 mg Oral QDAY buPROPion 100 mg Oral TID busPIRone 30 mg Oral BID carbamide peroxide 5 drop Both Ears BID collagenase Topical QDAY docusate 100 mg Oral BID ferrous sulfate 325 mg Oral TID w/ meals gabapentin 600 mg Oral Q6H insulin aspart U-100 0-6 Units Subcutaneous ACHS lactobacillus rhamnosus GG 1 capsule Oral BID w/meals levothyroxine 200 mcg Oral QDAY before breakfast metFORMIN 1,000 mg Oral BID w/meals nortriptyline 75 mg Oral QHS oxyCODONE 15 mg Oral Once per day on Wed oxyCODONE SR 10 mg Oral BID pantoprazole DR 40 mg Oral QDAY(21) rivaroxaban 20 mg Oral QDAY w/breakfast simvastatin 20 mg Oral QHS sitaGLIPtin 100 mg Oral QDAY sodium chloride PF 0.9% 20 mL Intravenous FLUSH TID IV MEDS Prnacetaminophen Q6H PRN, alteplase PRN (Catalogue Librarian from Rx), alum/mag hydroxide/simeth Q6H PRN, calcium carbonate Q4H PRN, milk of magnesia (CONC) Q4H PRN, ondansetron (ZOFRAN) IV Q6H PRN, oxyCODONE Q4H PRN, pancrelipase 20, 000 Units/ sodium bicarbonate 650 mg(#) PRN (Catalogue Librarian from Rx), sodium hypochlorite PRN Linus Pisano MD Pager # [phone] 02/15/2018 * Nani Lynch DO - 02/15/2018 9:48 AM CDT Discussed with Plastics team - feel tissue is still too edematous to work on for now. We will hold IV antibiotics and continue monitoring with wound care. Please call if patient has temps >38.3 and keep us updated on changes. Will cont to follow peripherally. Karin Lynch, ID, [id number] * Adrienne Zarate MD - 02/15/2018 9:22 AM CDT Formatting of this note may be different from the original. Subjective: Patient doing well. Having leaking around melchor catheter with exertion. Objective: Blood pressure 106/62, pulse 109, temperature 36.8 C (98.2 F), height 160 cm (63"), weight 88.8 kg (195 lb 12.3 oz), last menstrual period , SpO2 93 %. General: AAOx3, NAD Cardiac: tachycardic Respirations: Unlabored Abdomen: soft, nd, nt, colostomy present Extremities: Dressings intact, WV malfunctioned over the weekend, now packed WV: N/A No results for input(s): PTT, INR in the last 72 hours. CBC w/Diff Lab Results Component Value Date/Time WBC 12.0 (H) 02/14/2018 04:32 PM HGB 7.8 (L) 02/14/2018 04:32 PM HCT 23.9 (L) 02/14/2018 04:32 PM PLTCT 546 (H) 02/14/2018 04:32 PM Basic Metabolic Profile Lab Results Component Value Date/Time NA 137 02/14/2018 06:30 AM K 3.9 02/14/2018 06:30 AM CL 102 02/14/2018 06:30 AM CO2 29 02/14/2018 06:30 AM GAP 6 02/14/2018 06:30 AM Lab Results Component Value Date/Time BUN 9 02/14/2018 06:30 AM CR 0.67 02/14/2018 06:30 AM GLU 90 02/14/2018 06:30 AM A/P: 52 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 Calhoun about the plan of care and dressings. Sulfamylon cream to the open area and eschar to be changed BID then abd pads and hypafix tape. (ordered) Will continue to follow. Murtaza Cline PA-C If questions, page please page plastic surgery "Gold" team [phone] (6AM-6PM M-F) On-call resident all other times or consult pager [phone] * Ruth Allen MD - 02/15/2018 7:42 AM CDT Formatting of this note may be different from the original. ATTESTATION I personally performed the banuelos portions of the E/M visit, discussed case with resident and concur with resident documentation of history, physical exam, assessment, and treatment plan unless otherwise noted. Labs and VS reviewed and stable. Reconsult prosthetics for education, d/w patient. Will reduce TCA due to day-time grogginess. D/c abx per ID and monitor off for now. Dressing changes per Plastics. Cont HBOT M-F. Will f/u Urology about possible Melchor removal. Was changed over weekend with some hematuria. Endocrine will sign-off, stable glycemic control. Resume CAMP TENDER meds at discharge. Patient remains medically stable to participate in IRF program. Staff name: Ruth Allen MD Date: 02/15/2018 Physical Medicine & Rehabilitation Progress Note Today's Date: 02/15/2018 Admission Date: 01/14/2018 LOS: 32 days Insurance: [facility] Principal Problem: Left hip amputation status Active Problems: Chondrosarcoma (HCC) Acute blood loss as cause of postoperative anemia Depression Anxiety DM (diabetes mellitus) (HCC) 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 Chronic pain Post-op pain Bacteremia Amputated left leg (HCC) Candiduria Assessment/Plan: Beata Lema a 52 y.o.female[facility] the following issues : 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 Patient will need a modified schedule of 15 hours over 7 days to accommodate HBOT schedule. Goals: household mobility at wheelchair level mod I Tentative discharge date: 02/28/18 Recommended therapy after discharge: home health OT/PT Recommended equipment: Hospital bed, wheelchair/cushion, slideboard, ramp - Patient requires hospital bed at discharge. Patient requires positioning of the body in ways not feasible with ordinary beds to in order to alleviate pain. Patient requires frequent repositioning of the body and/or has an immediate need for change in body position. - Due to patients functional limitations they require a manual wheelchair for independent mobility in the home. A therapy evaluation was completed during their inpatient rehab stay to assess the most appropriate wheelchair for the patient. Daily Functional Update: Transfers Device Sit to Stand Transfer: Assistive Device: Hand Hold Assist;Roller Walker (02/14/2018 4:00 PM) No Data Recorded Gait Device Assist Required Distance Gait: Assistive Device: Parallel Bars;Wheelchair Follow (02/14/2018 4:00 PM) No Data Recorded Gait Distance: 2 feet (02/14/2018 4:00 PM) Toileting Assist Required Equipment Toilet Transfer Toileting Assist: Total Assist (02/09/2018 8:30 AM) No Data Recorded No Data Recorded Dressing Lower Body LE Dressing Assist: Moderate Assist (02/14/2018 12:00 PM) Chrondrosarcoma s/p hemipelvectomy and hemisacrectomy Lymphedema wound and residual limb >wound vac in place. Changes M/W/F by wound vac team. PO 15mg oxycodone MWF for WV changes + lidocaine into sponge during acute hospitalization - weaned off IV pain meds >Change dressings prn with dry sterile gauze and hypafix tape >vitamin A &D for labia wound, collagenase for left lower abdomen wound healing >Plan on 20 treatment of HBOT M-F in late afternoon Post-op pain in setting of chronic pain Phantom limb pain, neuropathic pain >Tylenol, oxycontin 10mg BID and oxycodone 20mg q3h prn. Lidoderm patch prn. > Continue nortriptyline 75mg QHS > Continue gabapentin 600mg Q6h Tremors -Likely related to gabapentin >improved with decrease gabapentin to 600mg Q6h s/p diverting colostomy - Stool saturating wound. Diverting colostomy done 12/30 >wound/ostomy consulted, working on education with nursing Bladder injury, recent repair - bladder and urethral injuries during hemipelvectomy on 12/14/17 - underwent cystoscopy with left ureteral stent insertion, Bladder neck repair, Urethroplasty and repair of urethral injury, Vaginal closure >continue melchor catheter, last changed 02/11 > Urology f/u after rehab discharge 02/13: Some red tinted urine yest, Hb is actually improving, likely traumatic melchor placement. 02/14: Urine clear this AM. Hb stable w/o sx. Chest lesions (metastases?) - 11/26/17 CT: few small pulmonary nodules. >plan is to resect the masses in the chest later >Per CTS ok to repeat CT chest once discharged on a outpatient basis GBS bacteremia w/ sepsis due to left hip wound - Fever and leukocytosis began 12/20/17, Bcx 09/21 positive for GBS on 12/23 - Completed course of abx 01/23 ertapenem > Multiple fevers 01/26 in pm, started Vanc/Meropenem and obtained blood cx x2 and UA/reflex cx - 09/21 bcx contaminated, rest NGTD > Repeat blood cx's 01/31 NGTD > IV Abx d/c per ID 02/15, will monitor off of abx DVT - 11/30/17 IVC filter for DVT within the external iliac vein >cont Xarelto ABLA - Transfusion 01/15 and 01/28 1U PRBC - monitor labs T2DM - A1c 6.5%, controlled - CAMP TENDER regimen: Metformin thousand milligrams twice a day, [id number] mg daily (resume at discharge) >Continue with Lantus 5 units QHS, novolog 4u postmeal , MDCF with meals > Metformin 1000mg BID, Januvia 100mg daily 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 - CAMP TENDER 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 daily - TSH 2.1 this admission >levothyroxine increased 200 mcg on 01/26 >She will need repeat thyroid function tests in 6-8 weeks (~March 08) Major depressive disorder, recurrent, moderate CLAUDIA Adjustment disorder with mixed anxiety and depressed mood > continue CAMP TENDER Wellbutrin and buspar, started on nortriptyline this admission Nutrition -Pt is currently meeting caloric and protein needs > weekly prealbumin and albumin - remains low > D/c corpak 02/02 > Continue current diet with protein supplementation HLD: holding CAMP TENDER statin Insomnia: nortriptyline 75mg qhs DVT Prophylaxis:Xarelto, will discharge on it Ravi Bigg, DO Subjective NEON. Pt resting in bed when seen on rounds. Pt complaining of feeling more tired throughout the day and attributed it to increased dose of nortriptyline. Will decrease to 75mg QHS. Educated pt that opiodes can also make her tired but she was not ready at this point to try and taper down her dose. Objective Vital Signs: Last Filed Vital Signs: 24 Hour Range BP: 106/62 (02/15 453) Temp: 36.8 C (98.2 F) (02/15 453) Pulse: 109 (02/15 453) Respirations: 18 PER MINUTE (02/15 453) SpO2: 93 % (02/15 453) O2 Delivery: None (Room Air) (02/15 453) BP: (106-114)/(60-62) Temp: [36.4 C (97.6 F)-37.6 C (99.7 F)] Pulse: [109-118] Respirations: [18 PER MINUTE] SpO2: [93 %] O2 Delivery: None (Room Air) Intensity Pain Scale 0-10 (Pain 1): Asleep (02/15/18 0410) Vitals: 02/12/18 0700 02/13/18 2200 02/15/18 0600 Weight: 91.9 kg (202 lb 9.6 oz) 86 kg (189 lb 9.5 oz) 88.8 kg (195 lb 12.3 oz) Intake/Output Summary: (Last 24 hours) Intake/Output Summary (Last 24 hours) at 02/15/18 0742 Last data filed at 02/15/18 0430 Gross per 24 hour Intake 240 ml Output 2700 ml Net -2460 ml Stool Occurrence: 1 Oral Diet Order: Diabetic [id number] Kcal/day (60 g Carb/meal, 30 g Carb/HS snack ) Last BM Date: 02/14/18 Lab: Results for orders placed or performed during the hospital encounter of (from the past 24 hour(s)) POC GLUCOSE Collection Time: 02/14/18 12:12 PM # # Low-High Glucose, POC 150 (H) 70 - 100 MG/DL POC GLUCOSE Collection Time: 02/14/18 4:08 PM # # Low-High Glucose, POC 86 70 - 100 MG/DL CBC AND DIFF Collection Time: 02/14/18 4:32 PM # # Low-High White Blood Cells 12.0 (H) 4.5 - 11.0 K/UL RBC 3.00 (L) 4.0 - 5.0 M/UL Hemoglobin 7.8 (L) 12.0 - 15.0 GM/DL Hematocrit 23.9 (L) 36 - 45 % MCV 79.6 (L) 80 - 100 FL MCH 25.9 (L) 26 - 34 PG MCHC 32.5 32.0 - 36.0 G/DL RDW 21.4 (H) 11 - 15 % Platelet Count 546 (H) 150 - 400 K/UL MPV 6.6 (L) 7 - 11 FL Neutrophils 77 41 - 77 % Lymphocytes 8 (L) 24 - 44 % Monocytes 10 4 - 12 % Eosinophils 5 0 - 5 % Basophils 0 0 - 2 % Absolute Neutrophil Count 9.30 (H) 1.8 - 7.0 K/UL Absolute Lymph Count 1.00 1.0 - 4.8 K/UL Absolute Monocyte Count 1.20 (H) 0 - 0.80 K/UL Absolute Eosinophil Count 0.60 (H) 0 - 0.45 K/UL Absolute Basophil Count 0.00 0 - 0.20 K/UL POC GLUCOSE Collection Time: 02/14/18 4:51 PM # # Low-High Glucose, POC 86 70 - 100 MG/DL POC GLUCOSE Collection Time: 02/14/18 9:16 PM # # Low-High Glucose, POC 129 (H) 70 - 100 MG/DL POC GLUCOSE Collection Time: 02/15/18 6:55 AM # # Low-High Glucose, POC 121 (H) 70 - 100 MG/DL Scheduled Meds: aspirin chewable tablet 81 mg 81 mg Oral QDAY buPROPion (WELLBUTRIN) tablet 100 mg 100 mg Oral TID busPIRone (BUSPAR) tablet 30 mg 30 mg Oral BID carbamide peroxide (DEBROX) 6.5 % otic solution 5 drop 5 drop Both Ears BID collagenase (SANTYL) topical ointment Topical QDAY docusate (COLACE) capsule 100 mg 100 mg Oral BID ertapenem (INVANZ) IVP 1 g 1 g Intravenous Q24H* ferrous sulfate (FEOSOL, FEROSUL) tablet 325 mg 325 mg Oral TID w/ meals gabapentin (NEURONTIN) capsule 600 mg 600 mg Oral Q6H insulin aspart U-100 (NOVOLOG FLEXPEN) injection PEN 0-7 Units 0-7 Units Subcutaneous ACHS lactobacillus rhamnosus GG (CULTURELLE) 15 billion cell capsule 1 capsule 1 capsule Oral BID w/meals levothyroxine (SYNTHROID) tablet 200 mcg 200 mcg Oral QDAY before breakfast metFORMIN (GLUCOPHAGE) tablet 1,000 mg 1,000 mg Oral BID w/meals nortriptyline (PAMELOR) capsule 100 mg 100 mg Oral QHS oxyCODONE (ROXICODONE, OXY-IR) tablet 15 mg 15 mg Oral Once per day on Wed oxyCODONE SR (OXYCONTIN) tablet 10 mg 10 mg Oral BID pantoprazole DR (PROTONIX) tablet 40 mg 40 mg Oral QDAY(21) rivaroxaban (XARELTO) tablet 20 mg 20 mg Oral QDAY w/breakfast simvastatin (ZOCOR) tablet 20 mg 20 mg Oral QHS sitaGLIPtin (JANUVIA) tablet 100 mg 100 mg Oral QDAY sodium chloride PF 0.9% flush 20 mL 20 mL Intravenous FLUSH TID vancomycin (VANCOCIN) 2 g in dextrose 5% (D5W) IVPB 2 g Intravenous Q24H* vancomycin, pharmacy to manage 1 each Service Per Pharmacy Continuous Infusions: PRN and Respiratory Meds:acetaminophen Q6H PRN, alteplase PRN (Catalogue Librarian from Rx) , alum/mag hydroxide/simeth Q6H PRN, calcium carbonate Q4H PRN, milk of magnesia (CONC) Q4H PRN, ondansetron (ZOFRAN) IV Q6H PRN, oxyCODONE Q4H PRN, pancrelipase 20,000 Units/ sodium bicarbonate 650 mg(#) PRN (Catalogue Librarian from Rx), sodium hypochlorite PRN Physical Exam VS: BP 106/62 (BP Source: Arm, Left) | Pulse 109 | Temp 36.8 C (98.2 F) | Ht 160 cm (63") | Wt 88.8 kg (195 lb 12.3 oz) | LMP 01/14/2013 | SpO2 93% | BMI 34.68 kg/m Gen: awake, alert, NAD HEENT: NCAT, MMM CV: RRR, no murmur Pulm: CTAB, no w/r Abd: nondistended, nontender Extremities: mild edema rle, s/p hemipelvectomy on left with dressings and wound vac in place. Psych: Pleasent mood Therapy Notes & Labs Reviewed. * Olena Carreon, RN - 02/14/2018 4:13 PM CDT Patient's apical pulse 125. Patient is lethargic, pale, and afebrile. Blood glucose 87. Notified MD. * Keiko Cao - 02/14/2018 11:41 AM CDT Reason for Visit: Unit Rounds - Request for visit Shantell/Yazidism: Faith - yet did not express any comments regarding her fatih or chruch activity during this visit. Source of Purpose/Meaning: Worries/Concerns/Struggles: Concern for her healing of her wound and her treatments for wound care. This is in the # 9 of 20 treatments. She is anxious for them to be done and get the wound under control so she can gain her strength and be discharged by February 28. Method(s) of Coping: patient stated that the activities that keep patient busy are "electronics, my coloring and pencil books, TV." Support System: appears strong. comes each day and spends night often. Daughter did come often - however cannot at this time due to her and deliver date soon. Patient expressed her gratitude for her support system from her family. The spiritual care team is available as needed, 12/04, through the campus switchboard ([phone]). For immediate response, please page [phone]. For a response within 24 hours, please submit an order in O2 for a superintendent commissary consult or call the administrative voicemail at [phone]. Rev. Tita Montgomery, [facility] * Arnaldo Delacruz MD - 02/14/2018 10:05 AM CDT Formatting of this note may be different from the original. Physical Medicine & Rehabilitation Progress Note Today's Date: 02/14/2018 Admission Date: 01/14/2018 LOS: 31 days Insurance: [facility] Principal Problem: Left hip amputation status Active Problems: Chondrosarcoma (HCC) Acute blood loss as cause of postoperative anemia Depression Anxiety DM (diabetes mellitus) (HCC) 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 Chronic pain Post-op pain Bacteremia Amputated left leg (HCC) Candiduria Assessment/Plan: Beata Lema a 52 y.o.female[facility] the following issues : 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 Patient will need a modified schedule of 15 hours over 7 days to accommodate HBOT schedule. Goals: household mobility at wheelchair level min A Tentative discharge date: 02/28/18 Recommended therapy after discharge: home health OT/PT Recommended equipment: Hospital bed, wheelchair/cushion, slideboard, ramp - Patient requires hospital bed at discharge. Patient requires positioning of the body in ways not feasible with ordinary beds to in order to alleviate pain. Patient requires frequent repositioning of the body and/or has an immediate need for change in body position. Daily Functional Update: Transfers Device Sit to Stand Transfer: Assistive Device: Sliding Board;None (02/13/2018 3:01 PM) No Data Recorded Gait Device Assist Required Distance Gait: Assistive Device: Parallel Bars;Wheelchair Follow (02/13/2018 3:01 PM) No Data Recorded Gait Distance: 4 feet (3',3',3') (02/13/2018 3:01 PM) Toileting Assist Required Equipment Toilet Transfer Toileting Assist: Total Assist (02/09/2018 8:30 AM) No Data Recorded No Data Recorded Dressing Lower Body LE Dressing Assist: Moderate Assist (02/13/2018 3:00 PM) Chrondrosarcoma s/p hemipelvectomy and hemisacrectomy Lymphedema wound and residual limb >wound vac in place. Changes M/W/F by wound vac team. PO 15mg oxycodone MWF for [place] changes + lidocaine into sponge during acute hospitalization - weaned off IV pain meds >Change dressings prn with dry sterile gauze and hypafix tape >vitamin A &D for labia wound, collagenase for left lower abdomen wound healing >Per plastic surgery note 01/24 not recommending further surgical intervention at this time >01/31 Pt had trial of HBOT which she tolerated well >Plan on 20 treatment of HBOT M-F in late afternoon Post-op pain in setting of chronic pain Phantom limb pain, neuropathic pain >Tylenol, oxycontin 10mg BID and oxycodone 20mg q3h prn. Lidoderm patch prn. > Continue nortriptyline 100mg QHS > Continue gabapentin 600mg Q6h Tremors -Likely related to gabapentin >Will decrease gabapentin to 600mg Q6h s/p diverting colostomy - Stool saturating wound. Diverting colostomy done 12/30 >wound/ostomy consulted, working on education with nursing Bladder injury, recent repair - bladder and urethral injuries during hemipelvectomy on 12/14/17 - underwent cystoscopy with left ureteral stent insertion, Bladder neck repair, Urethroplasty and repair of urethral injury, Vaginal closure >continue melchor catheter > Urology f/u after rehab discharge 02/13: Some red tinted urine yest, Hb is actually improving, likely traumatic melchor placement. 02/14: Urine clear this AM. Hb stable w/o sx. Chest lesions (metastases?) - 11/26/17 CT: few small pulmonary nodules. >plan is to resect the masses in the chest later >Per CTS ok to repeat CT chest once discharged on a outpatient basis GBS bacteremia w/ sepsis due to left hip wound - Fever and leukocytosis began 12/20/17, Bcx /2 positive for GBS on 12/23 -Fever 01/21 - blood cx and urine cx NGTD >Completed course of abx 01/23 ertapenem > Multiple fevers 01/26 in pm, started Vanc/Meropenem and obtained blood cx x2 and UA/reflex cx - 09/21 bcx contaminated, rest NGTD > Repeat blood cx's 01/31 NGTD > Duration of IV abx TBD, ID following 02/14: Wound vac unable to be placed correctly yest, wound care managing w/ dakins and will reattempt plcmt tomorrow. DVT - 11/30/17 IVC filter for DVT within the external iliac vein >cont Xarelto Tremors -Pt complaining of intermittent tremors that have been going on since her acute hospitalization -Likely related to her gabapentin, decreased dose 02/08 >Continue to monitor ABLA - Transfusion 01/15 and 01/28 1U PRBC - monitor labs T2DM - A1c 6.5%, controlled - CAMP TENDER regimen: Metformin thousand milligrams twice a day, [id number] mg daily >Continue with Lantus 5 units QHS, novolog 4u postmeal , MDCF with meals > Metformin 1000mg BID, Januvia 100mg daily 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 - CAMP TENDER 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 daily - TSH 2.1 this admission >levothyroxine increased 200 mcg on 01/26 >She will need repeat thyroid function tests in 6-8 weeks (~March 08) Major depressive disorder, recurrent, moderate CLAUDIA Adjustment disorder with mixed anxiety and depressed mood > continue CAMP TENDER Wellbutrin and buspar, started on nortriptyline this admission Nutrition - 01/31 albumin 2.4, Prealbumin 10.0, recheck 02/07 -Pt is currently meeting caloric and protein needs > weekly prealbumin and albumin - remains low > D/c corpak 02/02 > Continue current diet with protein supplementation HLD: holding CAMP TENDER statin Insomnia: nortriptyline 100mg qhs DVT Prophylaxis:Xarelto, will discharge on it Arnaldo Delacruz MD Subjective No issues/events overnight. SShe reports her urine is clear today., She denies N&V, fatigue, SCHROEDER, SOB. Objective Vital Signs: Last Filed Vital Signs: 24 Hour Range BP: 114/62 (02/15 400) Temp: 36.5 C (97.7 F) (02/15 400) Pulse: 113 (02/15 400) Respirations: 20 PER MINUTE (02/15 400) SpO2: 92 % (02/15 400) O2 Delivery: None (Room Air) (02/15 400) BP: (109-127)/(60-72) Temp: [36.3 C (97.4 F)-36.5 C (97.7 F)] Pulse: [113-126] Respirations: [18 PER MINUTE-20 PER MINUTE] SpO2: [92 %-94 %] O2 Delivery: None (Room Air) Intensity Pain Scale 0-10 (Pain 1): 7 (02/13/182029) Vitals: 02/11/18 0420 02/12/18 0700 02/13/18 2200 Weight: 88.6 kg (195 lb 5.2 oz) 91.9 kg (202 lb 9.6 oz) 86 kg (189 lb 9.5 oz) Intake/Output Summary: (Last 24 hours) Intake/Output Summary (Last 24 hours) at 02/14/18 1005 Last data filed at 02/14/18 0852 Gross per 24 hour Intake 590 ml Output 2725 ml Net -2135 ml Stool Occurrence: 1 Oral Diet Order: Diabetic 1947-2835 Kcal/day (60 g Carb/meal, 30 g Carb/HS snack ) Last BM Date: 02/13/18 Lab: Results for orders placed or performed during the hospital encounter of (from the past 24 hour(s)) POC GLUCOSE Collection Time: 02/13/18 11:57 AM # # Low-High Glucose, POC 106 (H) 70 - 100 MG/DL CBC Collection Time: 02/13/18 3:08 PM # # Low-High White Blood Cells 12.1 (H) 4.5 - [...] MPV 6.8 (L) 7 - 11 FL POC GLUCOSE Collection Time: 02/13/18 4:53 PM # # Low-High Glucose, POC 129 (H) 70 - 100 MG/DL VANCOMYCIN TROUGH Collection Time: 02/13/18 8:45 PM # # Low-High Vancomycin Trough 15.2 10.0 - 20.0 MCG/ML POC GLUCOSE Collection Time: 02/13/18 9:02 PM # # Low-High Glucose, POC 124 (H) 70 - 100 MG/DL CBC CELLULAR THERAPEUTICS Collection Time: 02/14/18 6:30 AM # # Low-High White Blood Cells 10.0 4.5 - 11.0 K/UL RBC 2.93 (L) 4.0 - 5.0 M/UL Hemoglobin 7.6 (L) 12.0 - 15.0 GM/DL Hematocrit 23.3 (L) 36 - 45 % MCV 79.6 (L) 80 - 100 FL MCH 25.9 (L) 26 - 34 PG MCHC 32.5 32.0 - 36.0 G/DL RDW 21.0 (H) 11 - 15 % Platelet Count 463 (H) 150 - 400 K/UL MPV 6.7 (L) 7 - 11 FL PREALBUMIN Collection Time: 02/14/18 6:30 AM # # Low-High Prealbumin 11.0 (L) 17 - 34 MG/DL BASIC METABOLIC PANEL CELLULAR THERAPEUTICS Collection Time: 02/14/18 6:30 AM # # Low-High Sodium 137 137 - 147 MMOL/L Potassium 3.9 3.5 - 5.1 MMOL/L Chloride 102 98 - 110 MMOL/L CO2 29 21 - 30 MMOL/L Anion Gap 6 3 - 12 Glucose 90 70 - 100 MG/DL Blood Urea Nitrogen 9 7 - 25 MG/DL Creatinine 0.67 0.4 - 1.00 MG/DL Calcium 8.9 8.5 - 10.6 MG/DL eGFR Non >60 >60 mL/min eGFR >60 >60 mL/min POC GLUCOSE Collection Time: 02/14/18 6:52 AM # # Low-High Glucose, POC 93 70 - 100 MG/DL Scheduled Meds: aspirin chewable tablet 81 mg 81 mg Oral QDAY buPROPion (WELLBUTRIN) tablet 100 mg 100 mg Oral TID busPIRone (BUSPAR) tablet 30 mg 30 mg Oral BID carbamide peroxide (DEBROX) 6.5 % otic solution 5 drop 5 drop Both Ears BID collagenase (SANTYL) topical ointment Topical QDAY docusate (COLACE) capsule 100 mg 100 mg Oral BID ertapenem (INVANZ) IVP 1 g 1 g Intravenous Q24H* ferrous sulfate (FEOSOL, FEROSUL) tablet 325 mg 325 mg Oral TID w/ meals gabapentin (NEURONTIN) capsule 600 mg 600 mg Oral Q6H insulin aspart U-100 (NOVOLOG FLEXPEN) injection PEN 0-7 Units 0-7 Units Subcutaneous ACHS lactobacillus rhamnosus GG (CULTURELLE) 15 billion cell capsule 1 capsule 1 capsule Oral BID w/meals levothyroxine (SYNTHROID) tablet 200 mcg 200 mcg Oral QDAY before breakfast metFORMIN (GLUCOPHAGE) tablet 1,000 mg 1,000 mg Oral BID w/meals nortriptyline (PAMELOR) capsule 100 mg 100 mg Oral QHS oxyCODONE (ROXICODONE, OXY-IR) tablet 15 mg 15 mg Oral Once per day on Wed oxyCODONE SR (OXYCONTIN) tablet 10 mg 10 mg Oral BID pantoprazole DR (PROTONIX) tablet 40 mg 40 mg Oral QDAY(21) rivaroxaban (XARELTO) tablet 20 mg 20 mg Oral QDAY w/breakfast simvastatin (ZOCOR) tablet 20 mg 20 mg Oral QHS sitaGLIPtin (JANUVIA) tablet 100 mg 100 mg Oral QDAY sodium chloride PF 0.9% flush 20 mL 20 mL Intravenous FLUSH TID vancomycin (VANCOCIN) 2 g in dextrose 5% (D5W) IVPB 2 g Intravenous Q24H* vancomycin, pharmacy to manage 1 each Service Per Pharmacy Continuous Infusions: PRN and Respiratory Meds:acetaminophen Q6H PRN, alteplase PRN (Catalogue Librarian from Rx) , alum/mag hydroxide/simeth Q6H PRN, calcium carbonate Q4H PRN, milk of magnesia (CONC) Q4H PRN, ondansetron (ZOFRAN) IV Q6H PRN, oxyCODONE Q4H PRN, pancrelipase 20,000 Units/ sodium bicarbonate 650 mg(#) PRN (Catalogue Librarian from Rx), sodium hypochlorite PRN Physical Exam VS: BP 114/62 (BP Source: Arm, Left) | Pulse 113 | Temp 36.5 C (97.7 F) | Ht 160 cm (63") | Wt 86 kg (189 lb 9.5 oz) | LMP 01/14/2013 | SpO2 92% | BMI 33.59 kg/m Gen: awake, alert, NAD HEENT: NCAT, MMM CV: RRR, no murmur Pulm: CTAB, no w/r Abd: nondistended, nontender Psych: Pleasent mood Therapy Notes & Labs Reviewed. * Jami Wetzel, PHARMD - 02/14/2018 9:22 AM CDT Formatting of this note may be different from the original. Pharmacy Vancomycin Note Subjective: Beata Kaiser is a 52 y.o. female being treated for skin and soft tissue infection. Objective: Current Vancomycin Orders Medication Dose Route Frequency vancomycin (VANCOCIN) 2 g in dextrose 5% (D5W) IVPB 2 g Intravenous Q24H* vancomycin, pharmacy to manage 1 each Service Per Pharmacy Day of Vancomycin therapy: 19 Additional Abx: Ertapenem Cultures: 12/23 blood culture with Group B strep, 01/26 blood cx coag neg staph likely contaminant White Blood Cells Date/Time Value Ref Range Status 02/14/2018 0630 10.0 4.5 - 11.0 K/UL Final 02/13/2018 1508 12.1 (H) 4.5 - 11.0 K/UL Final 02/13/2018 0630 9.3 4.5 - 11.0 K/UL Final Creatinine Date/Time Value Ref Range Status 02/14/2018 0630 0.67 0.4 - 1.00 MG/DL Final Blood Urea Nitrogen Date/Time Value Ref Range Status 02/14/2018 0630 9 7 - 25 MG/DL Final Estimated CrCl: 97.7ml/min Actual Weight: 86 kg (189 lb 9.5 oz) Dosing BW: 100 kg Drug Levels: Vancomycin Trough Date/Time Value Ref Range Status 02/13/2018 204 15.2 10.0 - 20.0 MCG/ML Final Assessment: Target levels for this patient: 10-15. Evaluation of level(s): Level drawn correctly yesterday evening and at goal. Continue current dose Plan: 1. Continue vancomycin 2000mg IV q24 2. Next scheduled level(s): 3-5 days 3. Pharmacy will continue to monitor and adjust therapy as needed. Jami Wetzel, PHARMD 02/14/2018 Pager [phone] * Maren Bryant RN - 02/14/2018 7:42 AM CDT Patient alert and oriented x4. Wound vac dressing removed. Wound packed Kerlix soaked in Denkins solution. Patient medicated prior to dressing change production controller notified about pain medication. Patient initially reported burning and itching. Given benadryl with relief. * Lianne Tadeo, SANJAY - 02/13/2018 6:30 PM CDT RN attempted several times throughout shift to reestablish seal on wound vac. RN was unsuccessful. RN contacted wound team for recs. Wound team recommended the following: Wet-to-dry dressing Dankins Moist Kerlix (must tie together to fit wound) Gauze Hypafix Change daily. RN contacted Dr. Stephen for orders. Will continue to monitor. * Arnaldo Delacruz MD - 02/13/2018 10:23 AM CDT Formatting of this note may be different from the original. Physical Medicine & Rehabilitation Progress Note Today's Date: 02/13/2018 Admission Date: 01/14/2018 LOS: 30 days Insurance: [facility] Principal Problem: Left hip amputation status Active Problems: Chondrosarcoma (HCC) Acute blood loss as cause of postoperative anemia Depression Anxiety DM (diabetes mellitus) (HCC) 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 Chronic pain Post-op pain Bacteremia Amputated left leg (HCC) Candiduria Assessment/Plan: Beata Lema a 52 y.o.femalead[facility]with the following issues : 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 Patient will need a modified schedule of 15 hours over 7 days to accommodate HBOT schedule. Goals: household mobility at wheelchair level min A Tentative discharge date: 02/28/18 Recommended therapy after discharge: home health OT/PT Recommended equipment: Hospital bed, wheelchair/cushion, slideboard, ramp - Patient requires hospital bed at discharge. Patient requires positioning of the body in ways not feasible with ordinary beds to in order to alleviate pain. Patient requires frequent repositioning of the body and/or has an immediate need for change in body position. Daily Functional Update: Transfers Device Sit to Stand Transfer: Assistive Device: None (02/12/2018 1:45 PM) No Data Recorded Gait Device Assist Required Distance Gait: Assistive Device: Parallel Bars;Wheelchair Follow (02/12/2018 10:00 AM) No Data Recorded Gait Distance: 4 feet (+ 3'x2) (02/12/2018 10:00 AM) Toileting Assist Required Equipment Toilet Transfer Toileting Assist: Total Assist (02/09/2018 8:30 AM) No Data Recorded No Data Recorded Dressing Lower Body LE Dressing Assist: Total Assist (02/11/2018 9:30 AM) Chrondrosarcoma s/p hemipelvectomy and hemisacrectomy Lymphedema wound and residual limb >wound vac in place. Changes M/W/F by wound vac team. PO 15mg oxycodone MWF for [place] changes + lidocaine into sponge during acute hospitalization - weaned off IV pain meds >Change dressings prn with dry sterile gauze and hypafix tape >vitamin A &D for labia wound, collagenase for left lower abdomen wound healing >Per plastic surgery note 01/24 not recommending further surgical intervention at this time >01/31 Pt had trial of HBOT which she tolerated well >Plan on 20 treatment of HBOT M-F in late afternoon Post-op pain in setting of chronic pain Phantom limb pain, neuropathic pain >Tylenol, oxycontin 10mg BID and oxycodone 20mg q3h prn. Lidoderm patch prn. > Continue nortriptyline 100mg QHS > Continue gabapentin 600mg Q6h Tremors -Likely related to gabapentin >Will decrease gabapentin to 600mg Q6h s/p diverting colostomy - Stool saturating wound. Diverting colostomy done 12/30 >wound/ostomy consulted, working on education with nursing Bladder injury, recent repair - bladder and urethral injuries during hemipelvectomy on 12/14/17 - underwent cystoscopy with left ureteral stent insertion, Bladder neck repair, Urethroplasty and repair of urethral injury, Vaginal closure >continue melchor catheter > Urology f/u after rehab discharge 02/13: Some red tinted urine yest, Hb is actually improving, likely traumatic melchor placement. Chest lesions (metastases?) - 11/26/17 CT: few small pulmonary nodules. >plan is to resect the masses in the chest later >Per CTS ok to repeat CT chest once discharged on a outpatient basis GBS bacteremia w/ sepsis due to left hip wound - Fever and leukocytosis began 12/20/17, Bcx 1/2 positive for GBS on 12/23 -Fever 01/21 - blood cx and urine cx NGTD >Completed course of abx 01/23 ertapenem > Multiple fevers 01/26 in pm, started Vanc/Meropenem and obtained blood cx x2 and UA/reflex cx - 09/21 bcx contaminated, rest NGTD > Repeat blood cx's 01/31 NGTD > Duration of IV abx TBD, ID following DVT - 11/30/17 IVC filter for DVT within the external iliac vein >cont Xarelto Tremors -Pt complaining of intermittent tremors that have been going on since her acute hospitalization -Likely related to her gabapentin, decreased dose 02/08 >Continue to monitor ABLA - Transfusion 01/15 and 01/28 1U PRBC - monitor labs T2DM - A1c 6.5%, controlled - CAMP TENDER regimen: Metformin thousand milligrams twice a day, [id number] mg daily >Continue with Lantus 5 units QHS, novolog 4u postmeal , MDCF with meals > Metformin 1000mg BID, Januvia 100mg daily 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 - CAMP TENDER 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 daily - TSH 2.1 this admission >levothyroxine increased 200 mcg on 01/26 >She will need repeat thyroid function tests in 6-8 weeks (~March 08) Major depressive disorder, recurrent, moderate CLAUDIA Adjustment disorder with mixed anxiety and depressed mood > continue CAMP TENDER Wellbutrin and buspar, started on nortriptyline this admission Nutrition - 01/31 albumin 2.4, Prealbumin 10.0, recheck 02/07 -Pt is currently meeting caloric and protein needs > weekly prealbumin and albumin - remains low > D/c corpak 02/02 > Continue current diet with protein supplementation HLD: holding CAMP TENDER statin Insomnia: nortriptyline 100mg qhs DVT Prophylaxis:Xarelto, will discharge on it Arnaldo Delacruz MD Subjective No issues/events overnight. She reports her urine is less red this AM, She denies N&V, fatigue, SCHROEDER, SOB. Objective Vital Signs: Last Filed Vital Signs: 24 Hour Range BP: 109/56 (02/13 411) Pulse: 109 (02/13 411) Respirations: 20 PER MINUTE (02/13 411) SpO2: 95 % (02/13 411) O2 Delivery: None (Room Air) (02/13 411) BP: (109)/(56) Pulse: [109] Respirations: [20 PER MINUTE] SpO2: [95 %] O2 Delivery: None (Room Air) Intensity Pain Scale 0-10 (Pain 1): 5 (02/13/18 0828) Vitals: 02/10/18 0414 02/11/18 0420 02/12/18 0700 Weight: 88.4 kg (194 lb 14.2 oz) 88.6 kg (195 lb 5.2 oz) 91.9 kg (202 lb 9.6 oz ) Intake/Output Summary: (Last 24 hours) Intake/Output Summary (Last 24 hours) at 02/13/18 1023 Last data filed at 02/13/18 0900 Gross per 24 hour Intake 1340 ml Output 2555 ml Net -1215 ml Stool Occurrence: 1 Oral Diet Order: Diabetic [id number] Kcal/day (60 g Carb/meal, 30 g Carb/HS snack ) Last BM Date: 02/13/18 Lab: Results for orders placed or performed during the hospital encounter of (from the past 24 hour(s)) POC GLUCOSE Collection Time: 02/12/18 11:36 AM # # Low-High Glucose, POC 122 (H) 70 - 100 MG/DL POC GLUCOSE Collection Time: 02/12/18 4:33 PM # # Low-High Glucose, POC 81 70 - 100 MG/DL POC GLUCOSE Collection Time: 02/12/18 9:27 PM # # Low-High Glucose, POC 146 (H) 70 - 100 MG/DL CBC Collection Time: 02/13/18 6:30 AM # # Low-High White Blood Cells 9.3 4.5 - 11.0 K/UL RBC 3.06 (L) 4.0 - 5.0 M/UL Hemoglobin 8.1 (L) 12.0 - 15.0 GM/DL Hematocrit 24.3 (L) 36 - 45 % MCV 79.3 (L) 80 - 100 FL MCH 26.6 26 - 34 PG MCHC 33.5 32.0 - 36.0 G/DL RDW 20.7 (H) 11 - 15 % Platelet Count 455 (H) 150 - 400 K/UL MPV 6.7 (L) 7 - 11 FL POC GLUCOSE Collection Time: 02/13/18 7:16 AM # # Low-High Glucose, POC 112 (H) 70 - 100 MG/DL Scheduled Meds: aspirin chewable tablet 81 mg 81 mg Oral QDAY buPROPion (WELLBUTRIN) tablet 100 mg 100 mg Oral TID busPIRone (BUSPAR) tablet 30 mg 30 mg Oral BID carbamide peroxide (DEBROX) 6.5 % otic solution 5 drop 5 drop Both Ears BID collagenase (SANTYL) topical ointment Topical QDAY docusate (COLACE) capsule 100 mg 100 mg Oral BID ertapenem (INVANZ) IVP 1 g 1 g Intravenous Q24H* ferrous sulfate (FEOSOL, FEROSUL) tablet 325 mg 325 mg Oral TID w/ meals gabapentin (NEURONTIN) capsule 600 mg 600 mg Oral Q6H insulin aspart U-100 (NOVOLOG FLEXPEN) injection PEN 0-7 Units 0-7 Units Subcutaneous ACHS lactobacillus rhamnosus GG (CULTURELLE) 15 billion cell capsule 1 capsule 1 capsule Oral BID w/meals levothyroxine (SYNTHROID) tablet 200 mcg 200 mcg Oral QDAY before breakfast metFORMIN (GLUCOPHAGE) tablet 1,000 mg 1,000 mg Oral BID w/meals nortriptyline (PAMELOR) capsule 100 mg 100 mg Oral QHS oxyCODONE (ROXICODONE, OXY-IR) tablet 15 mg 15 mg Oral Once per day on Wed oxyCODONE SR (OXYCONTIN) tablet 10 mg 10 mg Oral BID pantoprazole DR (PROTONIX) tablet 40 mg 40 mg Oral QDAY(21) rivaroxaban (XARELTO) tablet 20 mg 20 mg Oral QDAY w/breakfast simvastatin (ZOCOR) tablet 20 mg 20 mg Oral QHS sitaGLIPtin (JANUVIA) tablet 100 mg 100 mg Oral QDAY sodium chloride PF 0.9% flush 20 mL 20 mL Intravenous FLUSH TID vancomycin (VANCOCIN) 2 g in dextrose 5% (D5W) IVPB 2 g Intravenous Q24H* vancomycin, pharmacy to manage 1 each Service Per Pharmacy Continuous Infusions: PRN and Respiratory Meds:acetaminophen Q6H PRN, alteplase PRN (Catalogue Librarian from Rx) , alum/mag hydroxide/simeth Q6H PRN, calcium carbonate Q4H PRN, milk of magnesia (CONC) Q4H PRN, ondansetron (ZOFRAN) IV Q6H PRN, oxyCODONE Q4H PRN, pancrelipase 20,000 Units/ sodium bicarbonate 650 mg(#) PRN (Catalogue Librarian from Rx) Physical Exam VS: BP 109/56 (BP Source: Arm, Left) | Pulse 109 | Temp 36.9 C (98.4 F) | Ht 160 cm (63") | Wt 91.9 kg (202 lb 9.6 oz) | LMP 01/14/2013 | SpO2 95% | BMI 35.89 kg/m Gen: awake, alert, NAD HEENT: NCAT, MMM CV: RRR, no murmur Pulm: CTAB, no w/r Abd: nondistended, nontender Extremities: mild edema rle, s/p hemipelvectomy on left with dressings and wound vac in place. Therapy Notes & Labs Reviewed. * Julia Frost RN - 02/12/2018 11:25 AM CDT Both lumens had alteplase administered at 1120. Will let dwell for 30 minutes per hospital policy and then reassess. * Deonna Diaz MBBS - 02/12/2018 11:05 AM CDT Formatting of this note may be different from the original. Patient chart reviewed, overnight events noted and discussed in rounds. Recent Labs 02/10/18 1533 02/10/18 1705 02/10/18 2128 02/11/18 0651 02/11/18 1136 02/11/18 1658 02/11/18 2116 02/12/18 0650 GLUPOC 132* 105* 155* 84 91 88 119* 88 Recent Labs 02/11/18 0545 NA 138 K 4.0 CL 102 CO2 29 BUN 13 CR 0.60 GFR >60 GLU 76 CA 8.9 Estimated Creatinine Clearance: 101.2 mL/min (based on SCr of 0.6 mg/dL). Plan Glucose control continues to be tight. We will discontinue Lantus and pre-meal NovoLog 4 units. Continue low-dose correction factor. Continue metformin 1000 mg twice a day. Metformin to be held if patient is not eating and it has to be given right after patient is done eating, to avoid GI upset. Continue Januvia 100 mg daily. Discussed with . Deonna Diaz MD Endocrinology Fellow PGY-5 02/12/2018 * Arnaldo Delacruz MD - 02/12/2018 10:34 AM CDT Formatting of this note may be different from the original. Physical Medicine & Rehabilitation Progress Note Today's Date: 02/12/2018 Admission Date: 01/14/2018 LOS: 29 days Insurance: [facility] Principal Problem: Left hip amputation status Active Problems: Chondrosarcoma (HCC) Acute blood loss as cause of postoperative anemia Depression Anxiety DM (diabetes mellitus) (HCC) 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 Chronic pain Post-op pain Bacteremia Amputated left leg (HCC) Candiduria Assessment/Plan: Beata Lmea a 52 y.o.female[facility] the following issues : 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 Patient will need a modified schedule of 15 hours over 7 days to accommodate HBOT schedule. Goals: household mobility at wheelchair level min A Tentative discharge date: 02/28/18 Recommended therapy after discharge: home health OT/PT Recommended equipment: Hospital bed, wheelchair/cushion, slideboard, ramp - Patient requires hospital bed at discharge. Patient requires positioning of the body in ways not feasible with ordinary beds to in order to alleviate pain. Patient requires frequent repositioning of the body and/or has an immediate need for change in body position. Daily Functional Update: Transfers Device Sit to Stand Transfer: Assistive Device: Roller Walker (02/11/2018 10:30 AM) No Data Recorded Gait Device Assist Required Distance Gait: Assistive Device: Parallel Bars;Wheelchair Follow (02/11/2018 10:30 AM) No Data Recorded Gait Distance: 400 feet (12/01/2017 11:00 AM) Toileting Assist Required Equipment Toilet Transfer Toileting Assist: Total Assist (02/09/2018 8:30 AM) No Data Recorded No Data Recorded Dressing Lower Body LE Dressing Assist: Total Assist (02/11/2018 9:30 AM) Chrondrosarcoma s/p hemipelvectomy and hemisacrectomy Lymphedema wound and residual limb >wound vac in place. Changes M/W/F by wound vac team. PO 15mg oxycodone MWF for [place] changes + lidocaine into sponge during acute hospitalization - weaned off IV pain meds >Change dressings prn with dry sterile gauze and hypafix tape >vitamin A &D for labia wound, collagenase for left lower abdomen wound healing >Per plastic surgery note 01/24 not recommending further surgical intervention at this time >01/31 Pt had trial of HBOT which she tolerated well >Plan on 20 treatment of HBOT M-F in late afternoon Post-op pain in setting of chronic pain Phantom limb pain, neuropathic pain >Tylenol, oxycontin 10mg BID and oxycodone 20mg q3h prn. Lidoderm patch prn. > Continue nortriptyline 100mg QHS > Continue gabapentin 600mg Q6h Tremors -Likely related to gabapentin >Will decrease gabapentin to 600mg Q6h s/p diverting colostomy - Stool saturating wound. Diverting colostomy done 12/30 >wound/ostomy consulted, working on education with nursing Bladder injury, recent repair - bladder and urethral injuries during hemipelvectomy on 12/14/17 - underwent cystoscopy with left ureteral stent insertion, Bladder neck repair, Urethroplasty and repair of urethral injury, Vaginal closure >continue melchor catheter > Urology f/u after rehab discharge Chest lesions (metastases?) - 11/26/17 CT: few small pulmonary nodules. >plan is to resect the masses in the chest later >Per CTS ok to repeat CT chest once discharged on a outpatient basis GBS bacteremia w/ sepsis due to left hip wound - Fever and leukocytosis began 12/20/17, Bcx 1/2 positive for GBS on 12/23 -Fever 01/21 - blood cx and urine cx NGTD >Completed course of abx 01/23 ertapenem > Multiple fevers 01/26 in pm, started Vanc/Meropenem and obtained blood cx x2 and UA/reflex cx - 09/21 bcx contaminated, rest NGTD > Repeat blood cx's 01/31 NGTD > Duration of IV abx TBD, ID following DVT - 11/30/17 IVC filter for DVT within the external iliac vein >cont Xarelto Tremors -Pt complaining of intermittent tremors that have been going on since her acute hospitalization -Likely related to her gabapentin, decreased dose 02/08 >Continue to monitor ABLA - Transfusion 01/15 and 01/28 1U PRBC - monitor labs T2DM - A1c 6.5%, controlled - CAMP TENDER regimen: Metformin thousand milligrams twice a day, [id number] mg daily >Continue with Lantus 5 units QHS, novolog 4u postmeal , MDCF with meals > Metformin 1000mg BID, Januvia 100mg daily 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 - CAMP TENDER 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 daily - TSH 2.1 this admission >levothyroxine increased 200 mcg on 01/26 >She will need repeat thyroid function tests in 6-8 weeks (~March 08) Major depressive disorder, recurrent, moderate CLAUDIA Adjustment disorder with mixed anxiety and depressed mood > continue CAMP TENDER Wellbutrin and buspar, started on nortriptyline this admission Nutrition - 01/31 albumin 2.4, Prealbumin 10.0, recheck 02/07 -Pt is currently meeting caloric and protein needs > weekly prealbumin and albumin - remains low > D/c corpak 02/02 > Continue current diet with protein supplementation HLD: holding CAMP TENDER statin Insomnia: nortriptyline 100mg qhs DVT Prophylaxis:Xarelto, will discharge on it Arnaldo Delacruz MD Subjective No issues/events overnight. She reports her Picc line isnt working this AM ( Alteplase ordered). She reports a little nausea for the past 3 days (persistent , stable), Zofran helps. She denies SCHROEDER, SOB, CP. Objective Vital Signs: Last Filed Vital Signs: 24 Hour Range BP: 107/54 (02/12 600) Temp: 36.9 C (98.4 F) (02/12 600) Pulse: 109 (02/12 600) Respirations: 18 PER MINUTE (02/12 600) SpO2: 93 % (02/12 600) O2 Delivery: None (Room Air) (02/12 600) BP: (107-123)/(54-59) Temp: [36.3 C (97.4 F)-36.9 C (98.4 F)] Pulse: [109-112] Respirations: [18 PER MINUTE-20 PER MINUTE] SpO2: [92 %-93 %] O2 Delivery: None (Room Air) Intensity Pain Scale 0-10 (Pain 1): 3 (02/12/18 0900) Vitals: 02/10/18 0414 02/11/18 0420 02/12/18 0700 Weight: 88.4 kg (194 lb 14.2 oz) 88.6 kg (195 lb 5.2 oz) 91.9 kg (202 lb 9.6 oz ) Intake/Output Summary: (Last 24 hours) Intake/Output Summary (Last 24 hours) at 02/12/18 1034 Last data filed at 02/12/18 0915 Gross per 24 hour Intake 240 ml Output 2575 ml Net -2335 ml Stool Occurrence: 1 Oral Diet Order: Diabetic 4909-4785 Kcal/day (60 g Carb/meal, 30 g Carb/HS snack ) Last BM Date: 02/11/18 Lab: Results for orders placed or performed during the hospital encounter of (from the past 24 hour(s)) POC GLUCOSE Collection Time: 02/11/18 11:36 AM # # Low-High Glucose, POC 91 70 - 100 MG/DL POC GLUCOSE Collection Time: 02/11/18 4:58 PM # # Low-High Glucose, POC 88 70 - 100 MG/DL POC GLUCOSE Collection Time: 02/11/18 9:16 PM # # Low-High Glucose, POC 119 (H) 70 - 100 MG/DL POC GLUCOSE Collection Time: 02/12/18 6:50 AM # # Low-High Glucose, POC 88 70 - 100 MG/DL Scheduled Meds: aspirin chewable tablet 81 mg 81 mg Oral QDAY buPROPion (WELLBUTRIN) tablet 100 mg 100 mg Oral TID busPIRone (BUSPAR) tablet 30 mg 30 mg Oral BID carbamide peroxide (DEBROX) 6.5 % otic solution 5 drop 5 drop Both Ears BID collagenase (SANTYL) topical ointment Topical QDAY docusate (COLACE) capsule 100 mg 100 mg Oral BID ertapenem (INVANZ) IVP 1 g 1 g Intravenous Q24H* ferrous sulfate (FEOSOL, FEROSUL) tablet 325 mg 325 mg Oral TID w/ meals gabapentin (NEURONTIN) capsule 600 mg 600 mg Oral Q6H insulin aspart U-100 (NOVOLOG FLEXPEN) injection PEN 0-7 Units 0-7 Units Subcutaneous ACHS lactobacillus rhamnosus GG (CULTURELLE) 15 billion cell capsule 1 capsule 1 capsule Oral BID w/meals levothyroxine (SYNTHROID) tablet 200 mcg 200 mcg Oral QDAY before breakfast metFORMIN (GLUCOPHAGE) tablet 1,000 mg 1,000 mg Oral BID w/meals nortriptyline (PAMELOR) capsule 100 mg 100 mg Oral QHS oxyCODONE (ROXICODONE, OXY-IR) tablet 15 mg 15 mg Oral Once per day on Wed oxyCODONE SR (OXYCONTIN) tablet 10 mg 10 [address] BID [address] (PROTONIX) tablet 40 mg 40 mg Oral QDAY(21) rivaroxaban (XARELTO) tablet 20 mg 20 mg Oral QDAY w/breakfast simvastatin (ZOCOR) tablet 20 mg 20 mg Oral QHS sitaGLIPtin (JANUVIA) tablet 100 mg 100 mg Oral QDAY sodium chloride PF 0.9% flush 20 mL 20 mL Intravenous FLUSH TID vancomycin (VANCOCIN) 2 g in dextrose 5% (D5W) IVPB 2 g Intravenous Q24H* vancomycin, pharmacy to manage 1 each Service Per Pharmacy WATER FOR INJECTION, STERILE IJ SOLN (Cabinet Override) NOW Continuous Infusions: PRN and Respiratory Meds:acetaminophen Q6H PRN, alteplase PRN (Catalogue Librarian from Rx) , alum/mag hydroxide/simeth Q6H PRN, calcium carbonate Q4H PRN, milk of magnesia (CONC) Q4H PRN, ondansetron (ZOFRAN) IV Q6H PRN, oxyCODONE Q4H PRN, pancrelipase 20,000 Units/ sodium bicarbonate 650 mg(#) PRN (Catalogue Librarian from Rx) Physical Exam VS: BP 107/54 (BP Source: Arm, Left) | Pulse 109 | Temp 36.9 C (98.4 F) | Ht 160 cm (63") | Wt 91.9 kg (202 lb 9.6 oz) | LMP 01/14/2013 | SpO2 93% | BMI 35.89 kg/m Gen: awake, alert, NAD HEENT: NCAT, MMM CV: RRR, no murmur Pulm: CTAB, no w/r Abd: nondistended, nontender Extremities: mild edema rle, s/p hemipelvectomy on left with dressings and wound vac in place. Psych: Pleasent mood Therapy Notes & Labs Reviewed. * Nani Lynch DO - 02/11/2018 5:11 PM CDT Formatting of this note may be different from the original. Infectious Diseases Progress Note Today's Date: 02/11/2018 Admission Date: 01/14/2018 Assessment: Low grade fever 5/4-improved/resolved and then recurrent 5/9 w high grade fever off abtx - Eschar of wound w/fat necrosis, ongoing sweats, no other new s/s -5/4 UA- 2-10 WBC, no culture -5/4 BC neg -5/4 KUB- -01/24- plastic eval of wounds- no surgical intervention given lyphedematous tissue, wound team, ongoing areas of dehiscence/eschar -01/26 BC- coag neg (peripheral) , neg PIC cult -01/26 UA - 0-2 WBC - urine culture neg -low grade temp 01/30 - 01/31 BC X 2 neg Non-healing surgical wounds 01/31- Hyperbaric tx started Coag neg staph bacteremia- likely contaminant 01/26 PIC- neg 01/26 BC peripheral- Coag neg 01/31 BC line and peripheral - neg Transaminitis-improved 01/24 - LFT elevated 104/97 01/25 LFT improved 41/68 # GBS bacteremia w sepsis- source suspected left hip wound, less likely pna - Fever and leukocytosis began 12/20/17 - 4/3 L lower lobe infiltrate - read as atelectasis - 12/20 C. diff negative - 12/23 Bcx 09/21 set group B streptococcus; source seems most likely intra-pelvic; 12/24 bcx negative - CT pelvis 12/25: "Ill-defined fluid and air along the anterior margin of the surgical site away from the drain tip. However, no discrete drainable fluid collection is noted. - OR 01/10 for wound eval - no sign of infection - posterior wound starting to granulate, [place] started # Candiduria-resolved - 12/21/17 UA: wbc 2-10, negative nitrite, 1+ luukocytes, Culture > 100,000 Liliana sp - Sensitivities not done, unsure if fluconazole susceptible; repeat urine culture negative 12/28 but improved with micafungin so is suspicion for fluconazole resistance - Treating given indwelling melchor and inability to remove melchor d/t recent bladder repair - ? Candidal intertrigo - groin/mons - Cath change in OR 01/10 - no bladder leak at that time - Micafungin course completed 01/16 # s/p hemipelvectomy for Chondrosarcoma - 11/25/17 MRI: a large lesion throughout the entire left hemipelvis that appeared to be centered within the ilium - 11/30/17 open biopsy: Chondrosarcoma - 11/26/17 CT: few small pulmonary nodules. will resect the masses in the chest later - admission 12/13/17- - 12/14/17: left hemipelvectomy, jamil sacrectomy. Complicated with bladder and urethral injury. Added Cystoscopy with left ureteral stent insertion, Bladder neck repair, Urethroplasty and repair of urethral injury, Vaginal closure. - Stool saturating wound. Diverting colostomy done 12/30. - 01/06 CT: left hemipelvectomy, edema w/in the operative bed- not changed except sl more gas, more focal gas/fluid alonger anterior/inferior and superior surgical margins. # DVT - 11/30/17 IVC filter for DVT within the external iliac vein # Obese # HTN # DM # 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 # Depression # Generalized pain # abx allergy - allergic history to Cephalexin 'years ago' with skin rash and hot flash - tolerated Penicillin when she had dental caries -tolerates carbpenem Recommendations: 1. Continue Vanco - goal 10-15 + ertapenem for now - pt had some nausea yesterday and day prior ,not really today - assuming she seems to be tolerating prefer to leave antibiotics through weekend pending hopefully an eval by Dr. Calhoun when he is back in town re: timing of debridement; would dc antibiotics after debridement. 2. If decision is made to defer surg debridement > another wk to allow more improvement in edema will dc therapy and monitor off tx 3. While on Vanco check BMP at least 3 X weekly and monitor at least weekly cbc for antibiotic toxicities 4. Will discuss wounds w/Dr. Calhoun again when he back in town/available 5. Cont hyperbaric tx I will round again on the patient on Wednesday and try to coordinate w/[place] change. Please feel free to call the ID fellow production controller at pager [phone] if there are any new issues or concerns over the weekend. Complexity of medical decision making is high due to the multi-system nature of the infectious disease process or potential for limb-threatening infection as well as concerns including but not limited to complexity of the patient's underlying illnesses, the identification and sensitivities of the organisms being treated, the potential for antimicrobial toxicities which are being monitored by complete blood counts and chemistry analysis between visits and the potential for drug-drug interactions, as well as concerns regarding immunologic function, and interplay of other issues. Interval History Afeb since 01/30 No f/c No cough/sob Some nausea Wed/Thurs, not today per pt - eating ok Pain mostly w/vac changes, no other new concerns Antimicrobial Start date End date Erythromycin 12/13 Neomycin 12/13 12/13 Polymyxin B 12/14 12/14 Ertapenem 01/10-01/24; 02/08 active Gentamycin 12/14 12/15 Clindamycin 12/14 12/22 Pip/tazo 12/22 01/10 Fluconazole 12/22 12/30 Vancomycin 12/23 12/27 Micafungin 12/30 01/16 Vanco 01/26 active Meropenem 01/26 02/08 Estimated Creatinine Clearance: 99.3 mL/min (based on SCr of 0.6 mg/dL). Medications Scheduled Meds: aspirin chewable tablet 81 mg 81 mg Oral QDAY buPROPion (WELLBUTRIN) tablet 100 mg 100 mg Oral TID busPIRone (BUSPAR) tablet 30 mg 30 mg Oral BID carbamide peroxide (DEBROX) 6.5 % otic solution 5 drop 5 drop Both Ears BID collagenase (SANTYL) topical ointment Topical QDAY docusate (COLACE) capsule 100 mg 100 mg Oral BID ertapenem (INVANZ) IVP 1 g 1 g Intravenous Q24H* ferrous sulfate (FEOSOL, FEROSUL) tablet 325 mg 325 mg Oral TID w/ meals gabapentin (NEURONTIN) capsule 600 mg 600 mg Oral Q6H insulin aspart U-100 (NOVOLOG FLEXPEN) injection PEN 0-7 Units 0-7 Units Subcutaneous ACHS insulin aspart U-100 (NOVOLOG FLEXPEN) injection PEN 4 Units 4 Units Subcutaneous TID after meals insulin glargine (LANTUS SOLOSTAR, BASAGLAR) injection PEN 5 Units 5 Units Subcutaneous QHS lactobacillus rhamnosus GG (CULTURELLE) 15 billion cell capsule 1 capsule 1 capsule Oral BID w/meals levothyroxine (SYNTHROID) tablet 200 mcg 200 mcg Oral QDAY before breakfast metFORMIN (GLUCOPHAGE) tablet 1,000 mg 1,000 mg Oral BID w/meals nortriptyline (PAMELOR) capsule 100 mg 100 mg Oral QHS oxyCODONE (ROXICODONE, OXY-IR) tablet 15 mg 15 mg Oral Once per day on Wed oxyCODONE SR (OXYCONTIN) tablet 10 mg 10 [address] BID [address] (PROTONIX) tablet 40 mg 40 mg Oral QDAY(21) rivaroxaban (XARELTO) tablet 20 mg 20 mg Oral QDAY w/breakfast simvastatin (ZOCOR) tablet 20 mg 20 mg Oral QHS sitaGLIPtin (JANUVIA) tablet 100 mg 100 mg Oral QDAY sodium chloride PF 0.9% flush 20 mL 20 mL Intravenous FLUSH TID vancomycin (VANCOCIN) 2 g in dextrose 5% (D5W) IVPB 2 g Intravenous Q24H* vancomycin, pharmacy to manage 1 each Service Per Pharmacy Continuous Infusions: PRN and Respiratory Meds:acetaminophen Q6H PRN, alum/mag hydroxide/simeth Q6H PRN, calcium carbonate Q4H PRN, milk of magnesia (CONC) Q4H PRN, ondansetron ( ZOFRAN) IV Q6H PRN, oxyCODONE Q4H PRN, pancrelipase 20,000 Units/ sodium bicarbonate 650 mg(#) PRN (Catalogue Librarian from Rx) Physical Examination Vital Signs: Last Vital Signs: 24 Hour Range BP: 123/59 (02/11 1540) Temp: 36.3 C (97.4 F) (02/11 1540) Pulse: 112 (02/11 1540) Respirations: 20 PER MINUTE (02/11 1540) SpO2: 92 % (02/11 1540) O2 Delivery: None (Room Air) (02/12 1540) BP: (103-124)/(56-67) Temp: [36.3 C (97.4 F)-37.3 C (99.2 F)] Pulse: [105-116] Respirations: [16 PER MINUTE-20 PER MINUTE] SpO2: [92 %-96 %] O2 Delivery: None (Room Air) General appearance: alert, oriented, no distress Lungs: clear bilaterally Heart: Regular rhythm, no murmur Abdomen: Soft, normal bowel sounds, ostomy ok Ext: s/p left hemipelvectomy; RLE no edema; L anterior stump eschar remains - same - distal/anteriorly some granulation tissue now; stump edema is improved, posteriorly w/large wound vanc - posterior wound looks good- anterior margin still w/some fibrinous tissue but ongoing sl increase in gran tissue which is improved ; there is low-anterior wound which is healing and another large area with a necrotic crescent that is from underling healthy skin along ceci (photo) Skin: no new rashes noted aside from mild liliana in gluteal cleft - now improved w/antifungal cream Wed - pic below (still about the same amt abdoulaye wound erythema, sl more tenderness inferior to this wound Lines: PICC RUE- no erythema Lab Review Hematology Recent Labs 02/10/18 0554 02/10/18 0750 02/11/18 0545 WBC 8.6 8.8 9.0 HGB 6.5* 6.8* 7.6* HCT 20.3* 21.0* 23.2* PLTCT 442* 489* 479* Chemistry Recent Labs 02/09/18 0609 02/11/18 0545 NA 139 138 K 4.1 4.0 CL 103 102 CO2 30 29 BUN 16 13 CR 0.56 0.60 GFR >60 >60 GLU 101* 76 CA 8.9 8.9 Microbiology, Radiology and other Diagnostics Review Microbiology data reviewed. Pertinent radiology reviewed Nani Lynch, DO ID [phone] [id number] * Skyler Enriquez RN - 02/11/2018 4:06 PM CDT Pt's melchor was changed as per policy, pt tolerated well. Will continue to monitor * Jennifer Diaz RN - 02/11/2018 2:33 PM CDT Formatting of this note may be different from the original. Wound Ostomy Nursing Consult Service NAME:Beata Kaiser :1965 AGE: 52 y.o. ADMISSION DATE: 01/14/2018 DAYS ADMITTED: LOS: 28 days Reason for Visit: wound VAC Assessment/Plan: Principal Problem: Left hip amputation status Active Problems: Chondrosarcoma (HCC) Acute blood loss as cause of postoperative anemia Depression Anxiety DM (diabetes mellitus) (HCC) 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 Chronic pain Post-op pain Bacteremia Amputated left leg (HCC) Candiduria Wounds (NOT for Pressure Injuries) 11/30/17 0853 Left Buttocks Surgical Incision (Active) 11/30/17 0853 Buttocks Wound Orientation: Left Wound Type: Surgical Incision Wound Type:: Wound Description (Comments): Carlos Manuel Rosales Drain, Sutures, xeroform, 4x4's, and tegaderm. Wound Image 02/09/2018 11:40 AM Wound Base Assessment Green;Gallardo;Black necrotic tissue 02/11/2018 2:15 PM Surrounding Skin Assessment Dry;Intact 02/11/2018 2:15 PM Wound Site Closure Ceci 02/11/2018 2:15 PM Wound Drainage Amount Small 02/11/2018 2:15 PM Wound Drainage Description Gallardo 02/11/2018 2:15 PM Wound Dressing Status Changed 02/11/2018 2:15 PM Wound Dressing and / or Treatment Hydrofera Blue Ready;Hypafix Tape 02/11/2018 2 :15 PM Wounds (NOT for Pressure Injuries) 12/14/17 1748 Left Abdomen Ulcer (not from pressure) (Active) 12/14/17 1748 Abdomen Wound Orientation: Left Wound Type: Ulcer (not from pressure) Wound Type:: Wound Description (Comments): Wound Image 02/09/2018 11:40 AM Wound Base Assessment Moist;Yellow;Slough 02/11/2018 2:15 PM Surrounding Skin Assessment [place];Purple 02/11/2018 2:15 PM Wound Site Closure None 02/11/2018 2:15 PM Wound Drainage Amount Small 02/11/2018 2:15 PM Wound Drainage Description Serous 02/11/2018 2:15 PM Wound Dressing Status Changed 02/11/2018 2:15 PM Wound Dressing and / or Treatment Collagenase;Abdominal Pad;Hypafix Tape 2017 2:15 PM Wounds (NOT for Pressure Injuries) 12/30/17 1002 Left;Anterior Surgical Incision stump (Active) 12/30/17 1002 Wound Orientation: Left;Anterior Wound Type: Surgical Incision Wound Type:: stump Wound Description (Comments): Suture, ceci, telfa and iodine, 4x4, and tegaderm Wound Image 02/09/2018 11:40 AM Wound Base Assessment Black;Eschar 02/11/2018 2:15 PM Surrounding Skin Assessment Purple;[place] 02/11/2018 2:15 PM Wound Site Closure [place] 02/11/2018 2:15 PM Wound Drainage Amount Small 02/11/2018 2:15 PM Wound Drainage Description Gallardo 02/11/2018 2:15 PM Wound Dressing Status Changed 02/11/2018 2:15 PM Wound Dressing and / or Treatment Hydrofera Blue Ready;Hypafix Tape 02/11/2018 2 :15 PM Wounds (NOT for Pressure Injuries) 01/10/18 1100 Hip Surgical Incision (Active) 01/10/18 1100 Hip Wound Orientation: Wound Type: Surgical Incision Wound Type:: Wound Description (Comments): XEROFORM, 4X4S, HYPAFIX, WOUND VAC Wound Image 02/09/2018 11:40 AM Wound Base Assessment Moist;Red;Gallardo 02/11/2018 2:15 PM Surrounding Skin Assessment Dry;Intact;[place] 02/11/2018 2:15 PM Wound Site Closure Wound Adhesive Bandage 02/11/2018 2:15 PM Wound Drainage Amount Moderate 02/11/2018 2:15 PM Wound Drainage Description Serosanguineous 02/11/2018 2:15 PM Wound Dressing Status Changed 02/11/2018 2:15 PM Wound Dressing and / or Treatment VAC sponge - black;VAC tx: Continuous;VAC @ - 125 mm/Hg 02/11/2018 2:15 PM Wounds (NOT for Pressure Injuries) 01/10/18 Left;Inner;Posterior Buttocks Surgical Incision (Active) 01/10/18 Buttocks Wound Orientation: Left;Inner;Posterior Wound Type: Surgical Incision Wound Type:: Wound Description (Comments): Wound Image 02/09/2018 11:40 AM Wound Base Assessment Black;Gallardo;Necrotic tissue 02/11/2018 2:15 PM Surrounding Skin Assessment Dry;Intact 02/11/2018 2:15 PM Wound Site Closure None 02/11/2018 2:15 PM Wound Drainage Amount Small 02/11/2018 2:15 PM Wound Drainage Description [place] 02/11/2018 2:15 PM Wound Dressing Status Changed 02/11/2018 2:15 PM Wound Dressing and / or Treatment Hydrofera Blue Ready;Hypafix Tape 02/11/2018 2 :15 PM Procedure: Negative Wound Therapy Dressing Change Anesthesia Type: Not Applicable or None Provider(s) and Role: RN Negative Wound Pressure Device Type: KCI VAC Contact layer: None Wound dimension (length x width x depth, tunneling, undermining): See progress note 02/09 Number of sponges in the wound prior to dressing change: 2 Number of sponges removed from the wound: 2 Type of sponge: Black foam Number of sponges placed in the wound: 3 New cannister placed on wound VAC during this visit. SANJAY Segundo Dr. (ID) present for wound evaluation. Our service will not be in house on Wednesday 02/14 due to holiday. Will plan next dressing change on Thursday 02/15. Will continue to follow. Jennifer Diaz RN, BSN, CWON Wound/Ostomy Nursing Consult Service Office: [phone] Pager: [phone] Wound/Ostomy Team Pager (After Hours/Weekends): [phone] * BiggRavi christian, - 02/11/2018 12:51 PM CDT Formatting of this note may be different from the original. Physical Medicine & Rehabilitation Progress Note Today's Date: 02/11/2018 Admission Date: 01/14/2018 LOS: 28 days Insurance: [facility] Principal Problem: Left hip amputation status Active Problems: Chondrosarcoma (HCC) Acute blood loss as cause of postoperative anemia Depression Anxiety DM (diabetes mellitus) (HCC) 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 Chronic pain Post-op pain Bacteremia Amputated left leg (HCC) Candiduria Assessment/Plan: Beata Lema a 52 y.o.female[facility] the following issues : 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 Patient will need a modified schedule of 15 hours over 7 days to accommodate HBOT schedule. Goals: household mobility at wheelchair level min A Tentative discharge date: 02/28/18 Recommended therapy after discharge: home health OT/PT Recommended equipment: Hospital bed, wheelchair/cushion, slideboard, ramp - Patient requires hospital bed at discharge. Patient requires positioning of the body in ways not feasible with ordinary beds to in order to alleviate pain. Patient requires frequent repositioning of the body and/or has an immediate need for change in body position. Daily Functional Update: Transfers Device Sit to Stand Transfer: Assistive Device: Roller Walker (02/11/2018 9:30 AM) No Data Recorded Gait Device Assist Required Distance Gait: Assistive Device: IV Pole (12/01/2017 11:00 AM) No Data Recorded Gait Distance: 400 feet (12/01/2017 11:00 AM) Toileting Assist Required Equipment Toilet Transfer Toileting Assist: Total Assist (02/09/2018 8:30 AM) No Data Recorded No Data Recorded Dressing Lower Body LE Dressing Assist: Total Assist (02/11/2018 9:30 AM) Chrondrosarcoma s/p hemipelvectomy and hemisacrectomy Lymphedema wound and residual limb >wound vac in place. Changes M/W/F by wound vac team. PO 15mg oxycodone MWF for [place] changes + lidocaine into sponge during acute hospitalization - weaned off IV pain meds >Change dressings prn with dry sterile gauze and hypafix tape >vitamin A &D for labia wound, collagenase for left lower abdomen wound healing >Per plastic surgery note 01/24 not recommending further surgical intervention at this time >01/31 Pt had trial of HBOT which she tolerated well >Plan on 20 treatment of HBOT M-F in late afternoon Post-op pain in setting of chronic pain Phantom limb pain, neuropathic pain >Tylenol, oxycontin 10mg BID and oxycodone 20mg q3h prn. Lidoderm patch prn. > Continue nortriptyline 100mg QHS > Continue gabapentin 600mg Q6h Tremors -Likely related to gabapentin >Will decrease gabapentin to 600mg Q6h s/p diverting colostomy - Stool saturating wound. Diverting colostomy done 12/30 >wound/ostomy consulted, working on education with nursing Bladder injury, recent repair - bladder and urethral injuries during hemipelvectomy on 12/14/17 - underwent cystoscopy with left ureteral stent insertion, Bladder neck repair, Urethroplasty and repair of urethral injury, Vaginal closure >continue melchor catheter > Urology f/u after rehab discharge Chest lesions (metastases?) - 11/26/17 CT: few small pulmonary nodules. >plan is to resect the masses in the chest later >Per CTS ok to repeat CT chest once discharged on a outpatient basis GBS bacteremia w/ sepsis due to left hip wound - Fever and leukocytosis began 12/20/17, Bcx 1/2 positive for GBS on 12/23 -Fever 01/21 - blood cx and urine cx NGTD >Completed course of abx 01/23 ertapenem > Multiple fevers 01/26 in pm, started Vanc/Meropenem and obtained blood cx x2 and UA/reflex cx - 09/21 bcx contaminated, rest NGTD > Repeat blood cx's 01/31 NGTD > Duration of IV abx TBD, ID following DVT - 11/30/17 IVC filter for DVT within the external iliac vein >cont Xarelto Tremors -Pt complaining of intermittent tremors that have been going on since her acute hospitalization -Likely related to her gabapentin, decreased dose 02/08 >Continue to monitor ABLA - Transfusion 01/15 and 01/28 1U PRBC - monitor labs T2DM - A1c 6.5%, controlled - CAMP TENDER regimen: Metformin thousand milligrams twice a day, [id number] mg daily >Continue with Lantus 5 units QHS, novolog 4u postmeal , MDCF with meals > Metformin 1000mg BID, Januvia 100mg daily 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 - CAMP TENDER 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 daily - TSH 2.1 this admission >levothyroxine increased 200 mcg on 01/26 >She will need repeat thyroid function tests in 6-8 weeks (~March 08) Major depressive disorder, recurrent, moderate CLAUDIA Adjustment disorder with mixed anxiety and depressed mood > continue CAMP TENDER Wellbutrin and buspar, started on nortriptyline this admission Nutrition - 01/31 albumin 2.4, Prealbumin 10.0, recheck 02/07 -Pt is currently meeting caloric and protein needs > weekly prealbumin and albumin - remains low > D/c corpak 02/02 > Continue current diet with protein supplementation HLD: holding CAMP TENDER statin Insomnia: nortriptyline 100mg qhs DVT Prophylaxis:Xarelto, will discharge on it Ravi Pride, DO Subjective No issues/events overnight. Pt resting at EOB working with OT when seen. Pt stated she believes that her tremor is improving. Objective Vital Signs: Last Filed Vital Signs: 24 Hour Range BP: 107/56 (02/12 420) Temp: 37 C (98.6 F) (02/12 420) Pulse: 105 (02/12 420) Respirations: 16 PER MINUTE (02/12 420) SpO2: 92 % (02/12 420) O2 Delivery: None (Room Air) (02/12 420) BP: (103-135)/(56-67) Temp: [36.3 C (97.3 F)-37.3 C (99.2 F)] Pulse: [105-116] Respirations: [16 PER MINUTE-18 PER MINUTE] SpO2: [92 %-96 %] O2 Delivery: None (Room Air) Intensity Pain Scale 0-10 (Pain 1): 8 (02/11/18 0830) Vitals: 02/09/18 0400 02/10/18 0414 02/11/18 0420 Weight: 91.3 kg (201 lb 4.5 oz) 88.4 kg (194 lb 14.2 oz) 88.6 kg (195 lb 5.2 oz ) Intake/Output Summary: (Last 24 hours) Intake/Output Summary (Last 24 hours) at 02/11/18 1252 Last data filed at 02/11/18 0942 Gross per 24 hour Intake 300 ml Output 4250 ml Net -3950 ml Stool Occurrence: 1 Oral Diet Order: Diabetic 9217-1318 Kcal/day (60 g Carb/meal, 30 g Carb/HS snack ) Last BM Date: 02/11/18 Lab: Results for orders placed or performed during the hospital encounter of (from the past 24 hour(s)) POC GLUCOSE Collection Time: 02/10/18 1:35 PM # # Low-High Glucose, POC 106 (H) 70 - 100 MG/DL POC GLUCOSE Collection Time: 02/10/18 3:33 PM # # Low-High Glucose, POC 132 (H) 70 - 100 MG/DL TYPE & CROSSMATCH Collection Time: 02/10/18 4:20 PM # # Low-High Units Ordered 1 Crossmatch Expires 02/13/2018 Record Check FOUND ABO/RH(D) A POS Antibody Screen NEG Electronic Crossmatch YES Unit Number [id number] Blood Component Type RBC,ADSOL,LEUKO REDUCED Unit Division 0 Status OF Unit TRANSFUSED Transfusion Status OK TO TRANSFUSE Crossmatch Result COMPATIBLE,ELECTRONIC POC GLUCOSE Collection Time: 02/10/18 5:05 PM # # Low-High Glucose, POC 105 (H) 70 - 100 MG/DL POC GLUCOSE Collection Time: 02/10/18 9:28 PM # # Low-High Glucose, POC 155 (H) 70 - 100 MG/DL CBC CELLULAR THERAPEUTICS Collection Time: 02/11/18 5:45 AM # # Low-High White Blood Cells 9.0 4.5 - 11.0 K/UL RBC 2.92 (L) 4.0 - 5.0 M/UL Hemoglobin 7.6 (L) 12.0 - 15.0 GM/DL Hematocrit 23.2 (L) 36 - 45 % MCV 79.5 (L) 80 - 100 FL MCH 26.0 26 - 34 PG MCHC 32.7 32.0 - 36.0 G/DL RDW 20.3 (H) 11 - 15 % Platelet Count 479 (H) 150 - 400 K/UL MPV 6.6 (L) 7 - 11 FL BASIC METABOLIC PANEL CELLULAR THERAPEUTICS Collection Time: 02/11/18 5:45 AM # # Low-High Sodium 138 137 - 147 MMOL/L Potassium 4.0 3.5 - 5.1 MMOL/L Chloride 102 98 - 110 MMOL/L CO2 29 21 - 30 MMOL/L Anion Gap 7 3 - 12 Glucose 76 70 - 100 MG/DL Blood Urea Nitrogen 13 7 - 25 MG/DL Creatinine 0.60 0.4 - 1.00 MG/DL Calcium 8.9 8.5 - 10.6 MG/DL eGFR Non >60 >60 mL/min eGFR >60 >60 mL/min POC GLUCOSE Collection Time: 02/11/18 6:51 AM # # Low-High Glucose, POC 84 70 - 100 MG/DL POC GLUCOSE Collection Time: 02/11/18 11:36 AM # # Low-High Glucose, POC 91 70 - 100 MG/DL Scheduled Meds: aspirin chewable tablet 81 mg 81 mg Oral QDAY buPROPion (WELLBUTRIN) tablet 100 mg 100 mg Oral TID busPIRone (BUSPAR) tablet 30 mg 30 mg Oral BID carbamide peroxide (DEBROX) 6.5 % otic solution 5 drop 5 drop Both Ears BID collagenase (SANTYL) topical ointment Topical QDAY docusate (COLACE) capsule 100 mg 100 mg Oral BID ertapenem (INVANZ) IVP 1 g 1 g Intravenous Q24H* ferrous sulfate (FEOSOL, FEROSUL) tablet 325 mg 325 mg Oral TID w/ meals gabapentin (NEURONTIN) capsule 600 mg 600 mg Oral Q6H insulin aspart U-100 (NOVOLOG FLEXPEN) injection PEN 0-7 Units 0-7 Units Subcutaneous ACHS insulin aspart U-100 (NOVOLOG FLEXPEN) injection PEN 4 Units 4 Units Subcutaneous TID after meals insulin glargine (LANTUS SOLOSTAR, BASAGLAR) injection PEN 5 Units 5 Units Subcutaneous QHS lactobacillus rhamnosus GG (CULTURELLE) 15 billion cell capsule 1 capsule 1 capsule Oral BID w/meals levothyroxine (SYNTHROID) tablet 200 mcg 200 mcg Oral QDAY before breakfast metFORMIN (GLUCOPHAGE) tablet 1,000 mg 1,000 mg Oral BID w/meals nortriptyline (PAMELOR) capsule 100 mg 100 mg Oral QHS oxyCODONE (ROXICODONE, OXY-IR) tablet 15 mg 15 mg Oral Once per day on Wed oxyCODONE SR (OXYCONTIN) tablet 10 mg 10 mg Oral BID pantoprazole DR (PROTONIX) tablet 40 mg 40 mg Oral QDAY(21) rivaroxaban (XARELTO) tablet 20 mg 20 mg Oral QDAY w/breakfast simvastatin (ZOCOR) tablet 20 mg 20 mg Oral QHS sitaGLIPtin (JANUVIA) tablet 100 mg 100 mg Oral QDAY sodium chloride PF 0.9% flush 20 mL 20 mL Intravenous FLUSH TID vancomycin (VANCOCIN) 2 g in dextrose 5% (D5W) IVPB 2 g Intravenous Q24H* vancomycin, pharmacy to manage 1 each Service Per Pharmacy Continuous Infusions: PRN and Respiratory Meds:acetaminophen Q6H PRN, alum/mag hydroxide/simeth Q6H PRN, calcium carbonate Q4H PRN, milk of magnesia (CONC) Q4H PRN, ondansetron ( ZOFRAN) IV Q6H PRN, oxyCODONE Q4H PRN, pancrelipase 20,000 Units/ sodium bicarbonate 650 mg(#) PRN (Catalogue Librarian from Rx) Physical Exam VS: BP 107/56 (BP Source: Arm, Left) | Pulse 105 | Temp 37 C (98.6 F) | Ht 160 cm (63") | Wt 88.6 kg (195 lb 5.2 oz) | LMP 01/14/2013 | SpO2 92% | BMI 34.60 kg/m Gen: awake, alert, NAD HEENT: NCAT, MMM CV: RRR, no murmur Pulm: CTAB, no w/r Abd: nondistended, nontender Extremities: mild edema rle, s/p hemipelvectomy on left with dressings and wound vac in place. Moves extremities spontaneously and with purpose. Psych: Pleasent mood Neuro: face symmetric. Speech clear and fluent. Moves upper extremities spontaneously against gravity. Therapy Notes & Labs Reviewed. Associated attestation - Arnaldo Delacruz MD - 02/12/2018 2:02 PM CDT Rehabilitation Medicine Attending Physician Attestation: I personally performed banuelos portions of the history and exam. I discussed the case with the resident and agree with the resident's documentation of history, physical assessment and treatment plan unless otherwise noted. Thank you for allowing us to participate in the care of this patient. Arnaldo Delacruz MD 02/12/2018 2:02 PM Attending physician * Cherri Kinney, PhD - 02/11/2018 12:38 PM CDT [id number] Pt was seen for a follow-up therapeutic intervention with no family or significant others present. Pt was alert and responsive to inquiry/discussion. The utility of this service was reviewed and pt agreed to continue to participate. Speech appeared to be WNL , though slightly delayed, and thoughts seemed connected and goal oriented. Eye contact was appropriate and pt maintained gaze. Mood was dysthymic with patient exhibiting congruent affect. Pt reported depressed mood and tearfulness over the previous week. She stated that she felt "overwhelmed" at times, as she "didn't realize how much things would change after my surgery." She reported feeling supported by her family and staff. She also highlighted experiencing anxiety during therapies and hyperbaric treatments because she is afraid she might fall. The patient reviewed coping strategies she presently utilizes, which predominately consists of worry and rumination ("I just sit and try to think about things until they get better."). I reinforced pt's utilization of social support. Psychoeducation was provided regarding the cognitive-behavioral model of depression and anxiety, and the relationship between thoughts, feelings, and behaviors were reviewed. I highlighted the way in which rumination and worry actually serve to maintain depression and anxiety, introducing an alternative cognitive strategy of cognitive restructuring/generating coping thoughts. I worked with pt to specifically generate coping thoughts related to her anxiety around falling. The coping strategy of relaxed breathing was also reviewed. Pt stated that with the aforementioned coping strategies she does not believe her anxiety will interfere with participation in treatments/therapies. Behavioral activation was also discussed, and positive and distracting activities the patient might engage in were identified. Supportive therapy was provided. Pt reported significantly improved mood at the conclusion of the therapeutic session and requested that the service return next week to provide additional therapeutic support. Will continue to follow and assess as needed. Diagnosis: F33.4 Major depressive disorder, recurrent, in partial remission; F41.9 Anxiety Hero Camarena, Ph.D. Advanced Clinical Psychology Postdoctoral Fellow Pager #: [phone] ATTESTATION: I discussed this session and pt's care with the fellow and agree with his note as amended above. We will continue to follow prn until [facility] medardo/ miladys. Warren Kinney, PhD, ABPP * Milly Clarke, VP DATA - 02/11/2018 9:52 AM CDT Formatting of this note may be different from the original. Endocrinology Progress Note Name: Beata Kaiser Today's Date: 02/11/2018 Admission Date: 01/14/2018 LOS: 28 days Assessment/Plan: Principal Problem: Left hip amputation status Active Problems: Chondrosarcoma (HCC) Acute blood loss as cause of postoperative anemia Depression Anxiety DM (diabetes mellitus) (HCC) 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 Chronic pain Post-op pain Bacteremia Amputated left leg (HCC) Candiduria Assessment: 1. DM type 2 with stress hyperglycemia 2. Hypoglycemia A1c6.5, controlled CAMP TENDER regimen: Metformin 1000mg BID, [id number] mg daily Hypoglycemic episodes on this regimen: None and not checking blood sugars at home Follows up with for diabetes management:Primary care physician at [facility] Diabetic-complications assessment: Retinopathy: None Peripheral neuropathy: Yes on treatment Autonomic neuropathy:None Nephropathy: None Macrovascular complications:None Risk factor assessment: Last lipid profile - None on file On ACEi/ARB: Yes On Statin: yes 3. 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 CAMP TENDER 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 daily TSH 2.1 this admission Forgets to take her levothyroxine sometime 4. Enteral Nutrition- stopped 02/02/18 5. Left leg amputation Wound Vac 6. Hyperlipidemia On lovastatin 7. Chondorsarcoma Pelvis s/p hemipelvectomy 8. Obesity Class III Recommendations: Fasting BG tight: 84 Pt continues to have nausea, decreased appetite Decrease Lantus 5 units Continue Novolog 4 units + LDCF post meal dosing Continue Metformin 1000 mg BID Continue Januvia 100mg daily. Continue LT4 therapy Increase to 200mcg on 01.25.2018 due to continued elevation of TSH / low range normal FT4 Repeat TSH testing in 6 weeks, March 08, 2018 On statin therapy Pt discussed with Dr. Castro Subjective Beata Kaiser is a 52 y.o. female. Pt reports nausea today and yesterday. Feels she's being forced to drink so many protein drinks that she has no room for actual food. Pt is getting tired of food choices in Rehab, says that she struggles finding appetizing items on the menu, besides carbs. Pt nearly in tears while voicing frustrations. History of Present Illness Beata Kaiser is a 52 y.o. S/p left hemipelvectomy 12/13/17 DM2 with stress hyperglycemia HgbA1C 6.5%. CAMP TENDER meds: Metformin + Jardiance / PCP in [place], [place] Review of Systems: Denies chest pain/ sob/ vomiting/ abd cramping/ diarrhea Positive for nausea Medications Scheduled Meds: aspirin chewable tablet 81 mg 81 mg Oral QDAY buPROPion (WELLBUTRIN) tablet 100 mg 100 mg Oral TID busPIRone (BUSPAR) tablet 30 mg 30 mg Oral BID carbamide peroxide (DEBROX) 6.5 % otic solution 5 drop 5 drop Both Ears BID collagenase (SANTYL) topical ointment Topical QDAY docusate (COLACE) capsule 100 mg 100 mg Oral BID ertapenem (INVANZ) IVP 1 g 1 g Intravenous Q24H* ferrous sulfate (FEOSOL, FEROSUL) tablet 325 mg 325 mg Oral TID w/ meals gabapentin (NEURONTIN) capsule 600 mg 600 mg Oral Q6H insulin aspart U-100 (NOVOLOG FLEXPEN) injection PEN 0-7 Units 0-7 Units Subcutaneous ACHS insulin aspart U-100 (NOVOLOG FLEXPEN) injection PEN 4 Units 4 Units Subcutaneous TID after meals insulin glargine (LANTUS SOLOSTAR, BASAGLAR) injection PEN 10 Units 10 Units Subcutaneous QHS lactobacillus rhamnosus GG (CULTURELLE) 15 billion cell capsule 1 capsule 1 capsule Oral BID w/meals levothyroxine (SYNTHROID) tablet 200 mcg 200 mcg Oral QDAY before breakfast metFORMIN (GLUCOPHAGE) tablet 1,000 mg 1,000 mg Oral BID w/meals nortriptyline (PAMELOR) capsule 100 mg 100 mg Oral QHS oxyCODONE (ROXICODONE, OXY-IR) tablet 15 mg 15 mg Oral Once per day on Wed oxyCODONE SR (OXYCONTIN) tablet 10 mg 10 mg Oral BID pantop[address]ole DR (PROTONIX) tablet 40 mg 40 mg Oral QDAY(21) rivaroxaban (XARELTO) tablet 20 mg 20 mg Oral QDAY w/breakfast simvastatin (ZOCOR) tablet 20 mg 20 mg Oral QHS sitaGLIPtin (JANUVIA) tablet 100 mg 100 mg Oral QDAY sodium chloride PF 0.9% flush 20 mL 20 mL Intravenous FLUSH TID vancomycin (VANCOCIN) 2 g in dextrose 5% (D5W) IVPB 2 g Intravenous Q24H* vancomycin, pharmacy to manage 1 each Service Per Pharmacy Continuous Infusions: PRN and Respiratory Meds:acetaminophen Q6H PRN, alum/mag hydroxide/simeth Q6H PRN, calcium carbonate Q4H PRN, milk of magnesia (CONC) Q4H PRN, ondansetron ( ZOFRAN) IV Q6H PRN, oxyCODONE Q4H PRN, pancrelipase 20,000 Units/ sodium bicarbonate 650 mg(#) PRN (Catalogue Librarian from Rx) Objective: Vital Signs: Last Filed Vital Signs: 24 Hour Range BP: 107/56 (02/12 420) Temp: 37 C (98.6 F) (02/12 420) Pulse: 105 (02/12 420) Respirations: 16 PER MINUTE (02/12 420) SpO2: 92 % (02/12 420) O2 Delivery: None (Room Air) (02/12 420) BP: (103-135)/(56-67) Temp: [36.3 C (97.3 F)-37.3 C (99.2 F)] Pulse: [105-116] Respirations: [16 PER MINUTE-18 PER MINUTE] SpO2: [92 %-96 %] O2 Delivery: None (Room Air) Intensity Pain Scale 0-10 (Pain 1): 8 (02/11/18 0830) Vitals: 02/09/18 0400 02/10/18 0414 02/11/18 0420 Weight: 91.3 kg (201 lb 4.5 oz) 88.4 kg (194 lb 14.2 oz) 88.6 kg (195 lb 5.2 oz ) Intake/Output Summary: (Last 24 hours) Intake/Output Summary (Last 24 hours) at 02/11/18 0953 Last data filed at 02/11/18 0942 Gross per 24 hour Intake 320 ml Output 3750 ml Net -3430 ml Stool Occurrence: 1 Physical Exam General: Alert, cooperative, no distress, appears stated age Eyes: Conjunctivae/corneas clear. ENT: Moist mucous membranes Lungs: Breathing comfortably on RA Extremities: Left jamil-pelvectomy, no edema TECHNICAL SOLUTION ARCHITECT: Nonfocal, moves all extremities Lab Review General Chemistry: Lab Results Component Value Date NA 138 02/11/2018 K 4.0 02/11/2018 CL 102 02/11/2018 GAP 7 02/11/2018 BUN 13 02/11/2018 CR 0.60 02/11/2018 GLU 76 02/11/2018 CA 8.9 02/11/2018 ALBUMIN 2.3 02/04/2018 LACTIC 1.4 01/21/2018 OBSCA 1.07 12/19/2017 MG 1.8 01/03/2018 TOTBILI 0.2 02/04/2018 , Endocrine: Lab Results Component Value Date TSH 10.130 01/25/2018 , HgbA1C: Lab Results Component Value Date HGBA1C 6.5 12/28/2017 and Lipid Profile: Lab Results Component Value Date TRIG 254 01/13/2018 Glucose, POC Date/Time Value Ref Range Status 02/11/2018 0651 84 70 - 100 MG/DL Final 02/10/2018 2128 155 (H) 70 - 100 MG/DL Final 02/10/2018 1705 105 (H) 70 - 100 MG/DL Final 02/10/2018 1533 132 (H) 70 - 100 MG/DL Final 02/10/2018 1335 106 (H) 70 - 100 MG/DL Final 02/10/2018 1151 107 (H) 70 - 100 MG/DL Final 02/10/2018 0646 73 70 - 100 MG/DL Final 02/09/2018 2059 111 (H) 70 - 100 MG/DL Final Point of Care Testing (Last 24 hours) Glucose: 76 (02/11/18 0545) POC Glucose (Download): 84 (02/11/18 0651) Radiology and other Diagnostics Review: No pertinent radiology. Thank you for the opportunity to participate in this pt's care Please page with any questions or concerns Milly Clarke APRN Pager [phone] Office: [phone] * Cookie Ramireztnay - 02/11/2018 9:25 AM CDT ORTHOTICS/PROSTHETICS Consult Note: NAME: Beata Kaiser ADMISSION DATE: admitted to hospital : 1965 AGE: 52 y.o. ROOM: [place] [address] DOCTOR: Date of Order: 02/10 Date of Service: 02/10 Services referred for: Prosthetic shrinkers and education Description of condition/injury, including services:Amputations Size: 3x Side left Measurements: Area/circumference/Diameter/Length na Functional Goals discussed for device use: Reduce edema Device is to be ordered no Estimated date of delivery delivered 02/10 Functional goals met: Yes The patient states satisfaction with the fit/function of device: Yes Additional supplies provided to the patient: 2 pairs of shrinkers Patient Education: Written and/or verbal instruction/information provided to Patient Information provided: device function, usage/break-in period, safety issues, donning/doffing of device, patient is experienced wearer, how/whom to report problems related to device/change in physical condition, hospital staff provided instructions, care and cleaning, fitting issues, benefits and precautions and skin inspection Patient did tolerate the procedure without incident/problem. Follow-up scheduled: Patient provided with 2 new size 3x shrinkers and provided prosthetic education. To follow up as needed. PLAN: Order completed Marlene Ramirez 02/11/2018 * Tamara Reilly - 02/10/2018 3:48 PM CDT Patient has returned to the unit at this time via [employer] stretcher van. * Tamara Reilly - 02/10/2018 1:18 PM CDT Patient has left the unit at this time for hyperbarics via [employer] stretcher van. * Nani Magaña, PHARMD - 02/10/2018 10:32 AM CDT Formatting of this note may be different from the original. Pharmacy Vancomycin Note Subjective: Beata Kaiser is a 52 y.o. female being treated for skin and soft tissue infection. Objective: Current Vancomycin Orders Medication Dose Route Frequency vancomycin (VANCOCIN) 2 g in sodium chloride 0.9% (NS) IVPB 2 g Intravenous Q24H* vancomycin, pharmacy to manage 1 each Service Per Pharmacy Day of Vancomycin therapy: 5 Additional Abx: ertapenem Cultures: / blood culture with Group B strep, , , White Blood Cells Date/Time Value Ref Range Status 02/10/2018 0750 8.8 4.5 - 11.0 K/UL Final 02/10/2018 0554 8.6 4.5 - 11.0 K/UL Final 02/09/2018 0609 8.8 4.5 - 11.0 K/UL Final Creatinine Date/Time Value Ref Range Status 02/09/2018 0609 0.56 0.4 - 1.00 MG/DL Final 02/08/2018 0549 0.54 0.4 - 1.00 MG/DL Final Blood Urea Nitrogen Date/Time Value Ref Range Status 02/09/2018 0609 16 7 - 25 MG/DL Final Estimated CrCl: ~ 100 mL/min Intake/Output Summary (Last 24 hours) at 02/10/18 1032 Last data filed at 02/10/18 0900 Gross per 24 hour Intake 880 ml Output 1800 ml Net -920 ml UOP: Actual Weight: 88.4 kg (194 lb 14.2 oz) Dosing BW: 100 kg Drug Levels: Vancomycin Trough Date/Time Value Ref Range Status 02/09/20182056 9.6 (L) 10.0 - 20.0 MCG/ML Final Assessment: Target levels for this patient: 10-15. Evaluation of level(s): drawn appropriately Plan: 1. will increase dose to 2000mg, while leaving the interval as q24h and recheck dose prior to 4th dose since dosing change 2. Next scheduled level(s): prior to 4th 3. Pharmacy will continue to monitor and adjust therapy as needed. Nani Magaña, PHARMD 02/10/2018 * Milly Clarke, VP DATA - 02/10/2018 9:42 AM CDT Formatting of this note may be different from the original. Endocrinology Progress Note Name: Beata Kaiser Today's Date: 02/10/2018 Admission Date: 01/14/2018 LOS: 27 days Assessment/Plan: Principal Problem: Left hip amputation status Active Problems: Chondrosarcoma (HCC) Acute blood loss as cause of postoperative anemia Depression Anxiety DM (diabetes mellitus) (HCC) 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 Chronic pain Post-op pain Bacteremia Amputated left leg (HCC) Candiduria Assessment: 1. DM type 2 with stress hyperglycemia 2. Hypoglycemia A1c6.5, controlled CAMP TENDER regimen: Metformin 1000mg BID, [id number] mg daily Hypoglycemic episodes on this regimen: None and not checking blood sugars at home Follows up with for diabetes management:Primary care physician at [facility] Diabetic-complications assessment: Retinopathy: None Peripheral neuropathy: Yes on treatment Autonomic neuropathy:None Nephropathy: None Macrovascular complications:None Risk factor assessment: Last lipid profile - None on file On ACEi/ARB: Yes On Statin: yes 3. 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 CAMP TENDER 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 daily TSH 2.1 this admission Forgets to take her levothyroxine sometime 4. Enteral Nutrition- stopped 02/02/18 5. Left leg amputation Wound Vac 6. Hyperlipidemia On lovastatin 7. Chondorsarcoma Pelvis s/p hemipelvectomy 8. Obesity Class III Recommendations: Fasting BG very tight: 73 Pt having nausea, decreased appetite eating 50% of meals - per pt Decrease Lantus 10 units Decrease Novolog 4 units post meal dosing Decrease to LDCF with meals Continue Metformin 1000 mg BID Continue Januvia 100mg daily. Continue LT4 therapy Increase to 200mcg on 01.25.2018 due to continued elevation of TSH / low range normal FT4 Repeat TSH testing in 6 weeks, March 08, 2018 On statin therapy Pt discussed with Dr. Castro Subjective Beata Kaiser is a 52 y.o. female. Pt getting ready to leave for OT. Has been having nausea and a decreased appetite, not able to finish meals. History of Present Illness Beata Kaiser is a 52 y.o. S/p left hemipelvectomy 12/13/17 DM2 with stress hyperglycemia HgbA1C 6.5%. CAMP TENDER meds: Metformin + Jardiance / PCP in [place], [place] Review of Systems: Denies chest pain/ sob/ vomiting/ abd cramping/ diarrhea Positive for nausea Medications Scheduled Meds: aspirin chewable tablet 81 mg 81 mg Oral QDAY buPROPion (WELLBUTRIN) tablet 100 mg 100 mg Oral TID busPIRone (BUSPAR) tablet 30 mg 30 mg Oral BID carbamide peroxide (DEBROX) 6.5 % otic solution 5 drop 5 drop Both Ears BID collagenase (SANTYL) topical ointment Topical QDAY docusate (COLACE) capsule 100 mg 100 mg Oral BID ertapenem (INVANZ) IVP 1 g 1 g Intravenous Q24H* ferrous sulfate (FEOSOL, FEROSUL) tablet 325 mg 325 mg Oral TID w/ meals gabapentin (NEURONTIN) capsule 600 mg 600 mg Oral Q6H insulin aspart U-100 (NOVOLOG FLEXPEN) injection PEN 0-14 Units 0-14 Units Subcutaneous ACHS insulin aspart U-100 (NOVOLOG FLEXPEN) injection PEN 6 Units 6 Units Subcutaneous TID w/ meals insulin glargine (LANTUS SOLOSTAR, BASAGLAR) injection PEN 12 Units 12 Units Subcutaneous QHS lactobacillus rhamnosus GG (CULTURELLE) 15 billion cell capsule 1 capsule 1 capsule Oral BID w/meals levothyroxine (SYNTHROID) tablet 200 mcg 200 mcg Oral QDAY before breakfast lidocaine (LIDODERM) 5 % topical patch 2 patch 2 patch Topical QDAY metFORMIN (GLUCOPHAGE) tablet 1,000 mg 1,000 mg Oral BID w/meals nortriptyline (PAMELOR) capsule 100 mg 100 mg Oral QHS oxyCODONE (ROXICODONE, OXY-IR) tablet 15 mg 15 mg Oral Once per day on Wed oxyCODONE SR (OXYCONTIN) tablet 10 mg 10 [address] Oral BID pantop[address]ole DR (PROTONIX) tablet 40 mg 40 mg Oral QDAY(21) rivaroxaban (XARELTO) tablet 20 mg 20 mg Oral QDAY w/breakfast simvastatin (ZOCOR) tablet 20 mg 20 mg Oral QHS sitaGLIPtin (JANUVIA) tablet 100 mg 100 mg Oral QDAY sodium chloride PF 0.9% flush 20 mL 20 mL Intravenous FLUSH TID vancomycin (VANCOCIN) 1,750 mg in dextrose 5% (D5W) IVPB 1,750 mg Intravenous Q24H* vancomycin, pharmacy to manage 1 each Service Per Pharmacy Continuous Infusions: PRN and Respiratory Meds:acetaminophen Q6H PRN, alum/mag hydroxide/simeth Q6H PRN, calcium carbonate Q4H PRN, milk of magnesia (CONC) Q4H PRN, ondansetron ( ZOFRAN) IV Q6H PRN, oxyCODONE Q4H PRN, pancrelipase 20,000 Units/ sodium bicarbonate 650 mg(#) PRN (Catalogue Librarian from Rx) Objective: Vital Signs: Last Filed Vital Signs: 24 Hour Range BP: 137/71 (02/11 912) Temp: 36.8 C (98.3 F) (02/11 912) Pulse: 115 (02/11 912) Respirations: 18 PER MINUTE (02/11 912) SpO2: 97 % (02/11 912) O2 Delivery: None (Room Air) (02/11 912) BP: (115-137)/(58-71) Temp: [36.7 C (98.1 F)-37.2 C (99 F)] Pulse: [107-115] Respirations: [18 PER MINUTE] SpO2: [93 %-99 %] O2 Delivery: None (Room Air) Intensity Pain Scale 0-10 (Pain 1): 6 (02/10/18 0452) Vitals: 02/08/18 0606 02/09/18 0400 02/10/18 0414 Weight: 90 kg (198 lb 6.6 oz) 91.3 kg (201 lb 4.5 oz) 88.4 kg (194 lb 14.2 oz) Intake/Output Summary: (Last 24 hours) Intake/Output Summary (Last 24 hours) at 02/10/18 0942 Last data filed at 02/10/18 0900 Gross per 24 hour Intake 880 ml Output 1800 ml Net -920 ml Stool Occurrence: 1 Physical Exam General: Alert, cooperative, no distress, appears stated age Eyes: Conjunctivae/corneas clear. ENT: Moist mucous membranes Lungs: Breathing comfortably on RA Extremities: Left jamil-pelvectomy, no edema TECHNICAL SOLUTION ARCHITECT: Nonfocal, moves all extremities Lab Review General Chemistry: Lab Results Component Value Date NA 139 02/09/2018 K 4.1 02/09/2018 CL 103 02/09/2018 GAP 6 02/09/2018 BUN 16 02/09/2018 CR 0.56 02/09/2018 GLU 101 02/09/2018 CA 8.9 02/09/2018 ALBUMIN 2.3 02/04/2018 LACTIC 1.4 01/21/2018 OBSCA 1.07 12/19/2017 MG 1.8 01/03/2018 TOTBILI 0.2 02/04/2018 , Endocrine: Lab Results Component Value Date TSH 10.130 01/25/2018 , HgbA1C: Lab Results Component Value Date HGBA1C 6.5 12/28/2017 and Lipid Profile: Lab Results Component Value Date TRIG 254 01/13/2018 Glucose, POC Date/Time Value Ref Range Status 02/10/2018 0646 73 70 - 100 MG/DL Final 02/09/2018 2059 111 (H) 70 - 100 MG/DL Final 02/09/2018 1702 110 (H) 70 - 100 MG/DL Final 02/09/2018 1523 123 (H) 70 - 100 MG/DL Final 02/09/2018 1321 120 (H) 70 - 100 MG/DL Final 02/09/2018 1158 136 (H) 70 - 100 MG/DL Final 02/09/2018 0657 121 (H) 70 - 100 MG/DL Final 02/08/2018 2102 100 70 - 100 MG/DL Final Point of Care Testing (Last 24 hours) POC Glucose (Download): 73 (02/10/18 0646) Radiology and other Diagnostics Review: No pertinent radiology. Thank you for the opportunity to participate in this pt's care Please page with any questions or concerns Milly Clarke APRN Pager [phone] Office: [phone] * Ruth Allen MD - 02/10/2018 9:14 AM CDT Formatting of this note may be different from the original. ATTESTATION I personally performed the banuelos portions of the E/M visit, discussed case with resident and concur with resident documentation of history, physical exam, assessment, and treatment plan unless otherwise noted. Transfusion today for Hgb 6.8. Continues HBOT. Phantom pain fairly controlled with recent med adjustment. Staff name: Ruth Allen MD Date: 02/10/2018 Physical Medicine & Rehabilitation Progress Note Today's Date: 02/10/2018 Admission Date: 01/14/2018 LOS: 27 days Insurance: [facility] Principal Problem: Left hip amputation status Active Problems: Chondrosarcoma (HCC) Acute blood loss as cause of postoperative anemia Depression Anxiety DM (diabetes mellitus) (HCC) 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 Chronic pain Post-op pain Bacteremia Amputated left leg (HCC) Candiduria Assessment/Plan: Beata Lema a 52 y.o.female[facility] the following issues : 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 Patient will need a modified schedule of 15 hours over 7 days to accommodate HBOT schedule. Goals: household mobility at wheelchair level min A Tentative discharge date: 02/28/18 Recommended therapy after discharge: home health OT/PT Recommended equipment: Hospital bed, wheelchair/cushion, slideboard, ramp - Patient requires hospital bed at discharge. Patient requires positioning of the body in ways not feasible with ordinary beds to in order to alleviate pain. Patient requires frequent repositioning of the body and/or has an immediate need for change in body position. Daily Functional Update: Transfers Device Sit to Stand Transfer: Assistive Device: Roller Walker (02/10/2018 8:00 AM) No Data Recorded Gait Device Assist Required Distance Gait: Assistive Device: IV Pole (12/01/2017 11:00 AM) No Data Recorded Gait Distance: 400 feet (12/01/2017 11:00 AM) Toileting Assist Required Equipment Toilet Transfer Toileting Assist: Total Assist (02/09/2018 8:30 AM) No Data Recorded No Data Recorded Dressing Lower Body LE Dressing Assist: Maximum Assist (02/10/2018 8:00 AM) Chrondrosarcoma s/p hemipelvectomy and hemisacrectomy Lymphedema wound and residual limb >wound vac in place. Changes M/W/F by wound vac team. PO 15mg oxycodone MWF for [place] changes + lidocaine into sponge during acute hospitalization - weaned off IV pain meds >Change dressings prn with dry sterile gauze and hypafix tape >vitamin A &D for labia wound, collagenase for left lower abdomen wound healing >Per plastic surgery note 01/24 not recommending further surgical intervention at this time >01/31 Pt had trial of HBOT which she tolerated well >Plan on 20 treatment of HBOT M-F in late afternoon Post-op pain in setting of chronic pain Phantom limb pain, neuropathic pain >Tylenol, oxycontin 10mg BID and oxycodone 20mg q3h prn. Lidoderm patch prn. > Continue nortriptyline 100mg QHS > Continue gabapentin 600mg Q6h Tremors -Likely related to gabapentin >Will decrease gabapentin to 600mg Q6h s/p diverting colostomy - Stool saturating wound. Diverting colostomy done 12/30 >wound/ostomy consulted, working on education with nursing Bladder injury, recent repair - bladder and urethral injuries during hemipelvectomy on 12/14/17 - underwent cystoscopy with left ureteral stent insertion, Bladder neck repair, Urethroplasty and repair of urethral injury, Vaginal closure >continue melchor catheter > Urology f/u after rehab discharge Chest lesions (metastases?) - 11/26/17 CT: few small pulmonary nodules. >plan is to resect the masses in the chest later >Per CTS ok to repeat CT chest once discharged on a outpatient basis GBS bacteremia w/ sepsis due to left hip wound - Fever and leukocytosis began 12/20/17, Bcx 1/2 positive for GBS on 12/23 -Fever 01/21 - blood cx and urine cx NGTD >Completed course of abx 01/23 ertapenem > Multiple fevers 01/26 in pm, started Vanc/Meropenem and obtained blood cx x2 and UA/reflex cx - 09/21 bcx contaminated, rest NGTD > Repeat blood cx's 01/31 NGTD > Duration of IV abx TBD, ID following DVT - 11/30/17 IVC filter for DVT within the external iliac vein >cont Xarelto Tremors -Pt complaining of intermittent tremors that have been going on since her acute hospitalization -Likely related to her gabapentin, decreased dose 02/08 >Continue to monitor ABLA - Transfusion 01/15 and 01/28 1U PRBC - monitor labs T2DM - A1c 6.5%, controlled - CAMP TENDER regimen: Metformin thousand milligrams twice a day, [id number] mg daily >Continue with Lantus 12 units QHS, novolog 6u postmeal, MDCF with meals > Metformin 1000mg BID, Januvia 100mg daily 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 - CAMP TENDER 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 daily - TSH 2.1 this admission >levothyroxine increased 200 mcg on 01/26 >She will need repeat thyroid function tests in 6-8 weeks (~March 08) Major depressive disorder, recurrent, moderate CLAUDIA Adjustment disorder with mixed anxiety and depressed mood > continue CAMP TENDER Wellbutrin and buspar, started on nortriptyline this admission Nutrition - 01/31 albumin 2.4, Prealbumin 10.0, recheck 02/07 -Pt is currently meeting caloric and protein needs > weekly prealbumin and albumin - remains low > D/c corpak 02/02 > Continue current diet with protein supplementation HLD: holding CAMP TENDER statin Insomnia: nortriptyline 100mg qhs DVT Prophylaxis:Xarelto, will discharge on it Ravi Pride, DO Subjective No issues/events overnight. Pt resting in bed when seen on rounds. Pt stated she believes her tremor and slightly improved on lower dose of gabapentin. Hg < 7.0 today, will transfuse 1u PRBC. Objective Vital Signs: Last Filed Vital Signs: 24 Hour Range BP: 115/62 (02/10 414) Temp: 37.1 C (98.8 F) (02/10 414) Pulse: 107 (02/10 414) Respirations: 18 PER MINUTE (02/10 414) SpO2: 94 % (02/10 414) O2 Delivery: None (Room Air) (02/10 414) BP: (115-119)/(58-70) Temp: [36.7 C (98.1 F)-37.2 C (99 F)] Pulse: [107-115] Respirations: [18 PER MINUTE] SpO2: [93 %-99 %] O2 Delivery: None (Room Air) Intensity Pain Scale 0-10 (Pain 1): 6 (02/10/18 0452) Vitals: 02/08/18 0606 02/09/18 0400 02/10/18 0414 Weight: 90 kg (198 lb 6.6 oz) 91.3 kg (201 lb 4.5 oz) 88.4 kg (194 lb 14.2 oz) Intake/Output Summary: (Last 24 hours) Intake/Output Summary (Last 24 hours) at 02/10/18 0914 Last data filed at 02/10/18 0900 Gross per 24 hour Intake 880 ml Output 1800 ml Net -920 ml Stool Occurrence: 1 Oral Diet Order: Diabetic 5035-5056 Kcal/day (60 g Carb/meal, 30 g Carb/HS snack ) Last BM Date: 02/09/18 Lab: Results for orders placed or performed during the hospital encounter of (from the past 24 hour(s)) POC GLUCOSE Collection Time: 02/09/18 11:58 AM # # Low-High Glucose, POC 136 (H) 70 - 100 MG/DL POC GLUCOSE Collection Time: 02/09/18 1:21 PM # # Low-High Glucose, POC 120 (H) 70 - 100 MG/DL POC GLUCOSE Collection Time: 02/09/18 3:23 PM # # Low-High Glucose, POC 123 (H) 70 - 100 MG/DL POC GLUCOSE Collection Time: 02/09/18 5:02 PM # # Low-High Glucose, POC 110 (H) 70 - 100 MG/DL VANCOMYCIN TROUGH Collection Time: 02/09/18 8:57 PM # # Low-High Vancomycin Trough 9.6 (L) 10.0 - 20.0 MCG/ML POC GLUCOSE Collection Time: 02/09/18 8:59 PM # # Low-High Glucose, POC 111 (H) 70 - 100 MG/DL CBC Collection Time: 02/10/18 5:54 AM # # Low-High White Blood Cells 8.6 4.5 - 11.0 K/UL RBC 2.57 (L) 4.0 - 5.0 M/UL Hemoglobin 6.5 (L) 12.0 - 15.0 GM/DL Hematocrit 20.3 (L) 36 - 45 % MCV 78.8 (L) 80 - 100 FL MCH 25.4 (L) 26 - 34 PG MCHC 32.2 32.0 - 36.0 G/DL RDW 20.2 (H) 11 - 15 % Platelet Count 442 (H) 150 - 400 K/UL MPV 6.7 (L) 7 - 11 FL POC GLUCOSE Collection Time: 02/10/18 6:46 AM # # Low-High Glucose, POC 73 70 - 100 MG/DL CBC Collection Time: 02/10/18 7:50 AM # # Low-High White Blood Cells 8.8 4.5 - 11.0 K/UL RBC 2.66 (L) 4.0 - 5.0 M/UL Hemoglobin 6.8 (L) 12.0 - 15.0 GM/DL Hematocrit 21.0 (L) 36 - 45 % MCV 79.0 (L) 80 - 100 FL MCH 25.5 (L) 26 - 34 PG MCHC 32.3 32.0 - 36.0 G/DL RDW 20.3 (H) 11 - 15 % Platelet Count 489 (H) 150 - 400 K/UL MPV 6.7 (L) 7 - 11 FL Scheduled Meds: aspirin chewable tablet 81 mg 81 mg Oral QDAY buPROPion (WELLBUTRIN) tablet 100 mg 100 mg Oral TID busPIRone (BUSPAR) tablet 30 mg 30 mg Oral BID carbamide peroxide (DEBROX) 6.5 % otic solution 5 drop 5 drop Both Ears BID collagenase (SANTYL) topical ointment Topical QDAY docusate (COLACE) capsule 100 mg 100 mg Oral BID ertapenem (INVANZ) IVP 1 g 1 g Intravenous Q24H* ferrous sulfate (FEOSOL, FEROSUL) tablet 325 mg 325 mg Oral TID w/ meals gabapentin (NEURONTIN) capsule 600 mg 600 mg Oral Q6H insulin aspart U-100 (NOVOLOG FLEXPEN) injection PEN 0-14 Units 0-14 Units Subcutaneous ACHS insulin aspart U-100 (NOVOLOG FLEXPEN) injection PEN 6 Units 6 Units Subcutaneous TID w/ meals insulin glargine (LANTUS SOLOSTAR, BASAGLAR) injection PEN 12 Units 12 Units Subcutaneous QHS lactobacillus rhamnosus GG (CULTURELLE) 15 billion cell capsule 1 capsule 1 capsule Oral BID w/meals levothyroxine (SYNTHROID) tablet 200 mcg 200 mcg Oral QDAY before breakfast lidocaine (LIDODERM) 5 % topical patch 2 patch 2 patch Topical QDAY metFORMIN (GLUCOPHAGE) tablet 1,000 mg 1,000 mg Oral BID w/meals nortriptyline (PAMELOR) capsule 100 mg 100 mg Oral QHS oxyCODONE (ROXICODONE, OXY-IR) tablet 15 mg 15 mg Oral Once per day on Wed oxyCODONE SR (OXYCONTIN) tablet 10 mg 10 [address] Oral BID [address]op[address]ole [address] (PROTONIX) tablet 40 mg 40 mg Oral QDAY(21) rivaroxaban (XARELTO) tablet 20 mg 20 mg Oral QDAY w/breakfast simvastatin (ZOCOR) tablet 20 mg 20 mg Oral QHS sitaGLIPtin (JANUVIA) tablet 100 mg 100 mg Oral QDAY sodium chloride PF 0.9% flush 20 mL 20 mL Intravenous FLUSH TID vancomycin (VANCOCIN) 1,750 mg in dextrose 5% (D5W) IVPB 1,750 mg Intravenous Q24H* vancomycin, pharmacy to manage 1 each Service Per Pharmacy Continuous Infusions: PRN and Respiratory Meds:acetaminophen Q6H PRN, alum/mag hydroxide/simeth Q6H PRN, calcium carbonate Q4H PRN, milk of magnesia (CONC) Q4H PRN, ondansetron ( ZOFRAN) IV Q6H PRN, oxyCODONE Q4H PRN, pancrelipase 20,000 Units/ sodium bicarbonate 650 mg(#) PRN (Catalogue Librarian from Rx) Physical Exam VS: BP 115/62 (BP Source: Arm, Left) | Pulse 107 | Temp 37.1 C (98.8 F) | Ht 160 cm (63") | Wt 88.4 kg (194 lb 14.2 oz) | LMP 01/14/2013 | SpO2 94% | BMI 34.52 kg/m Gen: awake, alert, NAD HEENT: NCAT, MMM CV: RRR, no murmur Pulm: CTAB, no w/r Abd: nondistended, nontender Extremities: mild edema rle, s/p hemipelvectomy on left with dressings and wound vac in place. Moves extremities spontaneously and with purpose. Psych: Pleasent mood Neuro: face symmetric. Speech clear and fluent. Moves upper extremities spontaneously against gravity. Therapy Notes & Labs Reviewed. * Tamara Reilly - 02/09/2018 4:06 PM CDT Patient has returned to the unit at this time via [facility]. * Ruth Allen MD - 02/09/2018 2:21 PM CDT Formatting of this note may be different from the original. ATTESTATION I personally performed the banuelos portions of the E/M visit, discussed case with resident and concur with resident documentation of history, physical exam, assessment, and treatment plan unless otherwise noted. Per d/w rehab team at conference, patient making progress towards goal of mod I with RW. Tentative discharge date 02/28/18. Progress this week, bathing SBA, LB dress min A, grooming in wheelchair at sink, assist x2 for stand pivot transfer in // bars and now to rW. Recommending HH therapies at time of discharge from rehab. Time spent with patient, majority spent on counseling patient/family and rest on coordination of rehab plan of care: 25 minutes Time spent coordination care/discharge in team huddle/conference: 10 minutes Total time: 35 minutes Staff name: Ruth Allen MD Date: 02/09/2018 Physical Medicine & Rehabilitation Progress Note Today's Date: 02/09/2018 Admission Date: 01/14/2018 LOS: 26 days Insurance: [facility] Principal Problem: Left hip amputation status Active Problems: Chondrosarcoma (HCC) Acute blood loss as cause of postoperative anemia Depression Anxiety DM (diabetes mellitus) (HCC) 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 Chronic pain Post-op pain Bacteremia Amputated left leg (HCC) Candiduria Assessment/Plan: Beata Lema a 52 y.o.female[facility] the following issues : 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 Patient will need a modified schedule of 15 hours over 7 days to accommodate HBOT schedule. Goals: household mobility at wheelchair level min A Tentative discharge date: 02/28/18 Recommended therapy after discharge: home health OT/PT Recommended equipment: Hospital bed, wheelchair/cushion, slideboard, ramp - Patient requires hospital bed at discharge. Patient requires positioning of the body in ways not feasible with ordinary beds to in order to alleviate pain. Patient requires frequent repositioning of the body and/or has an immediate need for change in body position. Daily Functional Update: Transfers Device Sit to Stand Transfer: Assistive Device: Sliding Board (02/08/2018 8:30 AM) No Data Recorded Gait Device Assist Required Distance Gait: Assistive Device: IV Pole (12/01/2017 11:00 AM) No Data Recorded Gait Distance: 400 feet (12/01/2017 11:00 AM) Toileting Assist Required Equipment Toilet Transfer Toileting Assist: Total Assist (02/06/2018 8:30 AM) No Data Recorded No Data Recorded Dressing Lower Body LE Dressing Assist: Total Assist (02/08/2018 8:30 AM) Chrondrosarcoma s/p hemipelvectomy and hemisacrectomy Lymphedema wound and residual limb >wound vac in place. Changes M/W/F by wound vac team. PO 15mg oxycodone MWF for W[place] changes + lidocaine into sponge during acute hospitalization - weaned off IV pain meds >Change dressings prn with dry sterile gauze and hypafix tape >vitamin A &D for labia wound, collagenase for left lower abdomen wound healing >Per plastic surgery note 01/24 not recommending further surgical intervention at this time >01/31 Pt had trial of HBOT which she tolerated well >Plan on 20 treatment of HBOT M-F in late afternoon Post-op pain in setting of chronic pain Phantom limb pain, neuropathic pain >Tylenol, oxycontin 10mg BID and oxycodone 20mg q3h prn. Lidoderm patch prn. > Continue nortriptyline 100mg QHS > Continue gabapentin 600mg Q6h Tremors -Likely related to gabapentin >Will decrease gabapentin to 600mg Q6h s/p diverting colostomy - Stool saturating wound. Diverting colostomy done 12/30 >wound/ostomy consulted, working on education with nursing Bladder injury, recent repair - bladder and urethral injuries during hemipelvectomy on 12/14/17 - underwent cystoscopy with left ureteral stent insertion, Bladder neck repair, Urethroplasty and repair of urethral injury, Vaginal closure >continue melchor catheter > Urology f/u after rehab discharge Chest lesions (metastases?) - 11/26/17 CT: few small pulmonary nodules. >plan is to resect the masses in the chest later >Per CTS ok to repeat CT chest once discharged on a outpatient basis GBS bacteremia w/ sepsis due to left hip wound - Fever and leukocytosis began 12/20/17, Bcx 1/2 positive for GBS on 12/23 -Fever 01/21 - blood cx and urine cx NGTD >Completed course of abx 01/23 ertapenem > Multiple fevers 01/26 in pm, started Vanc/Meropenem and obtained blood cx x2 and UA/reflex cx - 09/21 bcx contaminated, rest NGTD > Repeat blood cx's 01/31 NGTD > Duration of IV abx TBD, ID following DVT - 11/30/17 IVC filter for DVT within the external iliac vein >cont Xarelto Tremors -Pt complaining of intermittent tremors that have been going on since her acute hospitalization -Likely related to her gabapentin, decreased dose 02/08 >Continue to monitor ABLA - Transfusion 01/15 and 01/28 1U PRBC - monitor labs T2DM - A1c 6.5%, controlled - CAMP TENDER regimen: Metformin thousand milligrams twice a day, [id number] mg daily >Continue with Lantus 12 units QHS, novolog 6u postmeal, MDCF with meals > Metformin 1000mg BID, Januvia 100mg daily 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 - CAMP TENDER 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 daily - TSH 2.1 this admission >levothyroxine increased 200 mcg on 01/26 >She will need repeat thyroid function tests in 6-8 weeks (~March 08) Major depressive disorder, recurrent, moderate CLAUDIA Adjustment disorder with mixed anxiety and depressed mood > continue CAMP TENDER Wellbutrin and buspar, started on nortriptyline this admission Nutrition - 01/31 albumin 2.4, Prealbumin 10.0, recheck 02/07 -Pt is currently meeting caloric and protein needs > weekly prealbumin and albumin - remains low > D/c corpak 02/02 > Continue current diet with protein supplementation HLD: holding CAMP TENDER statin Insomnia: nortriptyline 100mg qhs DVT Prophylaxis:Justynarelnafisa, will discharge on it Ravi Pride, DO Subjective No issues/events overnight. Pt stated she hasn't noticed a difference in her tremor since decreasing her dose of gabapentin yesterday. Continues to tolerate HBOT well. Objective Vital Signs: Last Filed Vital Signs: 24 Hour Range BP: 106/50 (02/10 400) Temp: 36.7 C (98.1 F) (02/09 1325) Pulse: 111 (02/09 040) Respirations: 18 PER MINUTE (02/09 040) SpO2: 92 % (02/09 040) O2 Delivery: None (Room Air) (02/10 400) BP: (106-133)/(50-65) Temp: [36.4 C (97.6 F)-37.3 C (99.2 F)] Pulse: [94-120] Respirations: [18 PER MINUTE] SpO2: [92 %-100 %] O2 Delivery: None (Room Air) Intensity Pain Scale 0-10 (Pain 1): 4 (02/09/18 0832) Vitals: 02/07/18 0710 02/08/18 0606 02/09/18 0400 Weight: 90.5 kg (199 lb 8.3 oz) 90 kg (198 lb 6.6 oz) 91.3 kg (201 lb 4.5 oz) Intake/Output Summary: (Last 24 hours) Intake/Output Summary (Last 24 hours) at 02/09/18 1422 Last data filed at 02/09/18 1200 Gross per 24 hour Intake 1370 ml Output 3075 ml Net -1705 ml Stool Occurrence: 1 Oral Diet Order: Diabetic 4322-0195 Kcal/day (60 g Carb/meal, 30 g Carb/HS snack ) Last BM Date: 02/08/18 Lab: Results for orders placed or performed during the hospital encounter of (from the past 24 hour(s)) POC GLUCOSE Collection Time: 02/08/18 3:21 PM # # Low-High Glucose, POC 172 (H) 70 - 100 MG/DL POC GLUCOSE Collection Time: 02/08/18 6:43 PM # # Low-High Glucose, POC 248 (H) 70 - 100 MG/DL POC GLUCOSE Collection Time: 02/08/18 9:02 PM # # Low-High Glucose, POC 100 70 - 100 MG/DL CBC CELLULAR THERAPEUTICS Collection Time: 02/09/18 6:09 AM # # Low-High White Blood Cells 8.8 4.5 - 11.0 K/UL RBC 2.69 (L) 4.0 - 5.0 M/UL Hemoglobin 6.9 (L) 12.0 - 15.0 GM/DL Hematocrit 21.1 (L) 36 - 45 % MCV 78.4 (L) 80 - 100 FL MCH 25.7 (L) 26 - 34 PG MCHC 32.8 32.0 - 36.0 G/DL RDW 20.1 (H) 11 - 15 % Platelet Count 482 (H) 150 - 400 K/UL MPV 6.6 (L) 7 - 11 FL BASIC METABOLIC PANEL CELLULAR THERAPEUTICS Collection Time: 02/09/18 6:09 AM # # Low-High Sodium 139 137 - 147 MMOL/L Potassium 4.1 3.5 - 5.1 MMOL/L Chloride 103 98 - 110 MMOL/L CO2 30 21 - 30 MMOL/L Anion Gap 6 3 - 12 Glucose 101 (H) 70 - 100 MG/DL Blood Urea Nitrogen 16 7 - 25 MG/DL Creatinine 0.56 0.4 - 1.00 MG/DL Calcium 8.9 8.5 - 10.6 MG/DL eGFR Non >60 >60 mL/min eGFR >60 >60 mL/min POC GLUCOSE Collection Time: 02/09/18 6:57 AM # # Low-High Glucose, POC 121 (H) 70 - 100 MG/DL POC GLUCOSE Collection Time: 02/09/18 11:58 AM # # Low-High Glucose, POC 136 (H) 70 - 100 MG/DL POC GLUCOSE Collection Time: 02/09/18 1:21 PM # # Low-High Glucose, POC 120 (H) 70 - 100 MG/DL Scheduled Meds: aspirin chewable tablet 81 mg 81 mg Oral QDAY buPROPion (WELLBUTRIN) tablet 100 mg 100 mg Oral TID busPIRone (BUSPAR) tablet 30 mg 30 mg Oral BID carbamide peroxide (DEBROX) 6.5 % otic solution 5 drop 5 drop Both Ears BID collagenase (SANTYL) topical ointment Topical QDAY docusate (COLACE) capsule 100 mg 100 mg Oral BID ertapenem (INVANZ) IVP 1 g 1 g Intravenous Q24H* ferrous sulfate (FEOSOL, FEROSUL) tablet 325 mg 325 mg Oral TID w/ meals gabapentin (NEURONTIN) capsule 600 mg 600 mg Oral Q6H insulin aspart U-100 (NOVOLOG FLEXPEN) injection PEN 0-14 Units 0-14 Units Subcutaneous ACHS insulin aspart U-100 (NOVOLOG FLEXPEN) injection PEN 6 Units 6 Units Subcutaneous TID w/ meals insulin glargine (LANTUS SOLOSTAR, BASAGLAR) injection PEN 12 Units 12 Units Subcutaneous QHS lactobacillus rhamnosus GG (CULTURELLE) 15 billion cell capsule 1 capsule 1 capsule Oral BID w/meals levothyroxine (SYNTHROID) tablet 200 mcg 200 mcg Oral QDAY before breakfast lidocaine (LIDODERM) 5 % topical patch 2 patch 2 patch Topical QDAY metFORMIN (GLUCOPHAGE) tablet 1,000 mg 1,000 mg Oral BID w/meals nortriptyline (PAMELOR) capsule 100 mg 100 mg Oral QHS oxyCODONE (ROXICODONE, OXY-IR) tablet 15 mg 15 mg Oral Once per day on Wed oxyCODONE SR (OXYCONTIN) tablet 10 mg 10 mg Oral BID pantoprazole DR (PROTONIX) tablet 40 mg 40 mg Oral QDAY(21) rivaroxaban (XARELTO) tablet 20 mg 20 mg Oral QDAY w/breakfast simvastatin (ZOCOR) tablet 20 mg 20 mg Oral QHS sitaGLIPtin (JANUVIA) tablet 100 mg 100 mg Oral QDAY sodium chloride PF 0.9% flush 20 mL 20 mL Intravenous FLUSH TID vancomycin (VANCOCIN) 1,750 mg in dextrose 5% (D5W) IVPB 1,750 mg Intravenous Q24H* vancomycin, pharmacy to manage 1 each Service Per Pharmacy Continuous Infusions: PRN and Respiratory Meds:acetaminophen Q6H PRN, alum/mag hydroxide/simeth Q6H PRN, calcium carbonate Q4H PRN, milk of magnesia (CONC) Q4H PRN, ondansetron ( ZOFRAN) IV Q6H PRN, oxyCODONE Q4H PRN, pancrelipase 20,000 Units/ sodium bicarbonate 650 mg(#) PRN (Catalogue Librarian from Rx) Physical Exam VS: BP 106/50 (BP Source: Arm, Left) | Pulse 111 | Temp 37.2 C (98.9 F) | Ht 160 cm (63") | Wt 91.3 kg (201 lb 4.5 oz) Comment: 1 pillow,blanket,top sheet,draw sheet and chux;no wound vac | LMP 01/14/2013 | SpO2 92% | BMI 35.66 kg/m Gen: awake, alert, NAD HEENT: NCAT, MMM CV: RRR, no murmur Pulm: CTAB, no w/r Abd: nondistended, nontender Extremities: mild edema rle, s/p hemipelvectomy on left with dressings and wound vac in place. Moves extremities spontaneously and with purpose. Psych: Pleasent mood Neuro: face symmetric. Speech clear and fluent. Moves upper extremities spontaneously against gravity. Therapy Notes & Labs Reviewed. 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 PMH of DM (A1c 6.5) and depression. Pt with stool soilage issues prohibiting wound healing had colostomy 12/30. TPN was added to enhance nutrition followed by supplemental EN. I&D with wound vac 01/10; continues. Pt receiving hyperbaric treatments for wound healing ; 8 out of 20 today. EN dc'd with pt meeting goals via oral intake x 12+ days. Pt continues to report a good appetite. Intakes continue to be adequate. Pt is consuming Prosource pkts with water daily per goal; however, not always consuming Boost GC. She reports fullness at time when drinking. Encouraged pt and RN to replace drink with additional Prosource if not wanting to drink Boost, as protein needs are higher goal than calories at this time 2/2 pt meeting caloric goals through oral intake. Pt h/o not meeting 100% of protein needs via oral intake. Discussed importance in spreading out protein over day for better absorption. Stressed induced hyperglycemia with h/o well controlled DM on metformin. BG 100-248 x 24 hrs; Metformin, Januvia, MDCF, Novolog, Lantus on board. +FCD 02/08. Abx and Culturelle noted. Weight down, reflective in net I/O of -41L total. No other concerns. Recommendation: Continue current diet order. Continue 2 pkts Prosource + 2 Boost GC drinks per day. Be sure to space out protein supplements for better absorption. If pt unable to consume Boost GC, replace with Prosource. Protein is priority 2/2 increased need for healing and pt meeting adequate kcal needs. Intervention / Plan: f/u with DM education closer to dc if needed Encouraged continued use of protein supps Monitor PO intake, wt, labs, skin, gi, meds, fluids Nutrition Diagnosis: Nutrition Diagnosis: Increased nutrient needs, specify: Etiology: protein: demand for wound healing Signs & Symptoms: s/p hemipelvectomy Goals: PO intake to meet >85% nutritional needs Time Frame: Prior to Discharge Status: Met;Ongoing Leia Zimmerman, KAYA, LD *[id number] * Tamara Reilyl - 02/09/2018 1:06 PM CDT Patient has left the unit at this time for Hyperbaric TX via [facility] stretcher van. * Nani Lynch DO - 02/09/2018 12:29 PM CDT Formatting of this note may be different from the original. Infectious Diseases Progress Note Today's Date: 02/09/2018 Admission Date: 01/14/2018 Assessment: Low grade fever 01/21-improved/resolved and then recurrent 01/26 w high grade fever off abtx - Eschar of wound w/fat necrosis, ongoing sweats, no other new s/s -01/21 UA- 2-10 WBC, no culture -01/21 BC neg -01/21 KUB- -01/24- plastic eval of wounds- no surgical intervention given lyphedematous tissue, wound team, ongoing areas of dehiscence/eschar -01/26 BC- coag neg (peripheral) , neg PIC cult -01/26 UA - 0-2 WBC - urine culture neg -low grade temp 01/30 - 01/31 BC X 2 neg Non-healing surgical wounds 01/31- Hyperbaric tx started Coag neg staph bacteremia- likely contaminant 01/26 PIC- neg 01/26 BC peripheral- Coag neg 01/31 BC line and peripheral - neg Transaminitis-improved 01/24 - LFT elevated 104/97 01/25 LFT improved 41/68 # GBS bacteremia w sepsis- source suspected left hip wound, less likely pna - Fever and leukocytosis began 12/20/17 - 4/3 L lower lobe infiltrate - read as atelectasis - 12/20 C. diff negative - 12/23 Bcx 09/21 set group B streptococcus; source seems most likely intra-pelvic; 12/24 bcx negative - CT pelvis 12/25: "Ill-defined fluid and air along the anterior margin of the surgical site away from the drain tip. However, no discrete drainable fluid collection is noted. - OR 01/10 for wound eval - no sign of infection - posterior wound starting to granulate, WV started # Candiduria-resolved - 12/21/17 UA: wbc 2-10, negative nitrite, 1+ luukocytes, Culture > 100,000 Liliana sp - Sensitivities not done, unsure if fluconazole susceptible; repeat urine culture negative 12/28 but improved with micafungin so is suspicion for fluconazole resistance - Treating given indwelling melchor and inability to remove melchor d/t recent bladder repair - ? Candidal intertrigo - groin/mons - Cath change in OR 01/10 - no bladder leak at that time - Micafungin course completed 01/16 # s/p hemipelvectomy for Chondrosarcoma - 11/25/17 MRI: a large lesion throughout the entire left hemipelvis that appeared to be centered within the ilium - 11/30/17 open biopsy: Chondrosarcoma - 11/26/17 CT: few small pulmonary nodules. will resect the masses in the chest later - admission 12/13/17- - 12/14/17: left hemipelvectomy, jamil sacrectomy. Complicated with bladder and urethral injury. Added Cystoscopy with left ureteral stent insertion, Bladder neck repair, Urethroplasty and repair of urethral injury, Vaginal closure. - Stool saturating wound. Diverting colostomy done 12/30. - 01/06 CT: left hemipelvectomy, edema w/in the operative bed- not changed except sl more gas, more focal gas/fluid alonger anterior/inferior and superior surgical margins. # DVT - 11/30/17 IVC filter for DVT within the external iliac vein # Obese # HTN # DM # 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 # Depression # Generalized pain # abx allergy - allergic history to Cephalexin 'years ago' with skin rash and hot flash - tolerated Penicillin when she had dental caries -tolerates carbpenem Recommendations: 1. Continue Vanco - goal 10-15 + ertapenem for now 2. While on Vanco check BMP at least 3 X weekly and monitor at least weekly cbc for antibiotic toxicities 3. Will discuss wounds w/Dr. Calhoun when he is avail - ideally cont antibiotic/ debride nonviable tissue then can dc antibiotic and cont wound care; hold on choosing stop date pending discussion 4. Cont hyperbaric tx Complexity of medical decision making is high due to the multi-system nature of the infectious disease process or potential for limb-threatening infection as well as concerns including but not limited to complexity of the patient's underlying illnesses, the identification and sensitivities of the organisms being treated, the potential for antimicrobial toxicities which are being monitored by complete blood counts and chemistry analysis between visits and the potential for drug-drug interactions, as well as concerns regarding immunologic function, and interplay of other issues. Relayed above to Rehab team. Interval History Afeb since 01/30 No f/c; still intermittent sweats No cough/sob No n/v/abd pain today Pain mostly w/vac changes, rehab otherwise going ok Antimicrobial Start date End date Erythromycin 12/13 Neomycin 12/13 12/13 Polymyxin B 12/14 12/14 Ertapenem 01/10-01/24; 02/08 active Gentamycin 12/14 12/15 Clindamycin 12/14 12/22 Pip/tazo 12/22 01/10 Fluconazole 12/22 12/30 Vancomycin 12/23 12/27 Micafungin 12/30 01/16 Vanco 01/26 active Meropenem 01/26 02/08 Estimated Creatinine Clearance: 100.9 mL/min (based on SCr of 0.56 mg/dL). Medications Scheduled Meds: aspirin chewable tablet 81 mg 81 mg Oral QDAY buPROPion (WELLBUTRIN) tablet 100 mg 100 mg Oral TID busPIRone (BUSPAR) tablet 30 mg 30 mg Oral BID carbamide peroxide (DEBROX) 6.5 % otic solution 5 drop 5 drop Both Ears BID collagenase (SANTYL) topical ointment Topical QDAY docusate (COLACE) capsule 100 mg 100 mg Oral BID ertapenem (INVANZ) IVP 1 g 1 g Intravenous Q24H* ferrous sulfate (FEOSOL, FEROSUL) tablet 325 mg 325 mg Oral TID w/ meals gabapentin (NEURONTIN) capsule 600 mg 600 mg Oral Q6H insulin aspart U-100 (NOVOLOG FLEXPEN) injection PEN 0-14 Units 0-14 Units Subcutaneous ACHS insulin aspart U-100 (NOVOLOG FLEXPEN) injection PEN 6 Units 6 Units Subcutaneous TID w/ meals insulin glargine (LANTUS SOLOSTAR, BASAGLAR) injection PEN 12 Units 12 Units Subcutaneous QHS lactobacillus rhamnosus GG (CULTURELLE) 15 billion cell capsule 1 capsule 1 capsule Oral BID w/meals levothyroxine (SYNTHROID) tablet 200 mcg 200 mcg Oral QDAY before breakfast lidocaine (LIDODERM) 5 % topical patch 2 patch 2 patch Topical QDAY metFORMIN (GLUCOPHAGE) tablet 1,000 mg 1,000 mg Oral BID w/meals nortriptyline (PAMELOR) capsule 100 mg 100 mg Oral QHS oxyCODONE (ROXICODONE, OXY-IR) tablet 15 mg 15 mg Oral Once per day on Wed oxyCODONE SR (OXYCONTIN) tablet 10 mg 10 [address] Oral BID pantoprazole DR (PROTONIX) tablet 40 mg 40 mg Oral QDAY() rivaroxaban (XARELTO) tablet 20 mg 20 mg Oral QDAY w/breakfast simvastatin (ZOCOR) tablet 20 mg 20 mg Oral QHS sitaGLIPtin (JANUVIA) tablet 100 mg 100 mg Oral QDAY sodium chloride PF 0.9% flush 20 mL 20 mL Intravenous FLUSH TID vancomycin (VANCOCIN) 1,750 mg in dextrose 5% (D5W) IVPB 1,750 mg Intravenous Q24H* vancomycin, pharmacy to manage 1 each Service Per Pharmacy Continuous Infusions: PRN and Respiratory Meds:acetaminophen Q6H PRN, alum/mag hydroxide/simeth Q6H PRN, calcium carbonate Q4H PRN, milk of magnesia (CONC) Q4H PRN, ondansetron ( ZOFRAN) IV Q6H PRN, oxyCODONE Q4H PRN, pancrelipase 20,000 Units/ sodium bicarbonate 650 mg(#) PRN (Catalogue Librarian from Rx) Physical Examination Vital Signs: Last Vital Signs: 24 Hour Range BP: 106/50 (02/10 400) Temp: 37.2 C (98.9 F) (02/10 400) Pulse: 111 (02/10 400) Respirations: 18 PER MINUTE (02/10 400) SpO2: 92 % (02/10 400) O2 Delivery: None (Room Air) (02/10 400) BP: (106-133)/(50-65) Temp: [36.4 C (97.6 F)-37.3 C (99.2 F)] Pulse: [94-120] Respirations: [18 PER MINUTE] SpO2: [92 %-100 %] O2 Delivery: None (Room Air) General appearance: alert, oriented, no distress Lungs: clear bilaterally Heart: Regular rhythm, no murmur Abdomen: Soft, normal bowel sounds, ostomy ok Ext: s/p left hemipelvectomy; RLE no edema; L anterior stump eschar remains - distal/anteriorly some granulation tissue now; stump edema is improved, posteriorly w/large wound vanc - posterior wound looks great - anterior margin still w/some fibrinous tissue but now some gran tissue which is improved from when I last saw about 2 1/2 wks ago; there is low-anterior wound which is healing and another large area with a necrotic crescent that is from underling healthy skin along ceci (photo) Skin: no new rashes noted aside from mild liliana in gluteal cleft (RN to apply antifungal barrier cream) Lines: PICC RUE- no erythema Lab Review Hematology Recent Labs 02/07/18 0516 02/07/18 0755 02/09/18 0609 WBC 9.2 9.0 8.8 HGB 6.6* 7.9* 6.9* HCT 20.3* 23.9* 21.1* PLTCT 527* 490* 482* Chemistry Recent Labs 02/07/18 0516 02/08/18 0549 02/09/18 0609 NA 140 140 139 K 4.0 4.1 4.1 CL 104 104 103 CO2 29 31* 30 BUN 15 15 16 CR 0.65 0.54 0.56 GFR >60 >60 >60 GLU 79 109* 101* CA 8.8 8.8 8.9 Microbiology, Radiology and other Diagnostics Review Microbiology data reviewed. Pertinent radiology reviewed Nani Lynch DO ID [phone] * Jennifer Diaz RN - 02/09/2018 11:40 AM CDT Formatting of this note may be different from the original. Wound Ostomy Nursing Consult Service NAME:Beata Kaiser :1965 AGE: 52 y.o. ADMISSION DATE: 01/14/2018 DAYS ADMITTED: LOS: 26 days Reason for Visit: wound VAC Assessment/Plan: Principal Problem: Left hip amputation status Active Problems: Chondrosarcoma (HCC) Acute blood loss as cause of postoperative anemia Depression Anxiety DM (diabetes mellitus) (HCC) 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 Chronic pain Post-op pain Bacteremia Amputated left leg (HCC) Candiduria Wounds (NOT for Pressure Injuries) 11/30/17 0853 Left Buttocks Surgical Incision (Active) 11/30/17 0853 Buttocks Wound Orientation: Left Wound Type: Surgical Incision Wound Type:: Wound Description (Comments): Carlos Manuel Rosales Drain, Sutures, xeroform, 4x4's, and tegaderm. Wound Image 02/09/2018 11:40 AM Wound Base Assessment Moist;Black;Necrotic tissue 02/09/2018 11:40 AM Surrounding Skin Assessment Dry;Intact 02/09/2018 11:40 AM Wound Site Closure Wound Adhesive Bandage 02/09/2018 11:40 AM Wound Drainage Amount Small 02/09/2018 11:40 AM Wound Drainage Description Gallardo 02/09/2018 11:40 AM Wound Dressing Status Changed 02/09/2018 11:40 AM Wound Dressing and / or Treatment Hydrofera Blue Ready;Hypafix Tape 02/09/2018 11 :40 AM Wound Length (cm) (Wound Team Only) 21 cm 02/09/2018 11:40 AM Wound Width (cm) (Wound Team Only) 5.5 cm 02/09/2018 11:40 AM Wound Depth (cm) (Wound Team Only) 2.5 02/09/2018 11:40 AM Wound Volume (cm^3) (Wound Team Only) 288.75 cm^3 02/09/2018 11:40 AM Wound Healing % (Wound Team Only) -2650 02/09/2018 11:40 AM Wounds (NOT for Pressure Injuries) 12/14/17 1748 Left Abdomen Ulcer (not from pressure) (Active) 12/14/17 1748 Abdomen Wound Orientation: Left Wound Type: Ulcer (not from pressure) Wound Type:: Wound Description (Comments): Wound Image 02/09/2018 11:40 AM Wound Base Assessment Moist;Yellow;Slough 02/09/2018 11:40 AM Surrounding Skin Assessment Pale;Intact 02/09/2018 11:40 AM Wound Site Closure Wound Adhesive Bandage 02/09/2018 11:40 AM Wound Drainage Amount Small 02/09/2018 11:40 AM Wound Drainage Description Gallardo 02/09/2018 11:40 AM Wound Dressing Status Changed 02/09/2018 11:40 AM Wound Dressing and / or Treatment Collagenase;Abdominal Pad;Hypafix Tape 2017 11:40 AM Wound Length (cm) (Wound Team Only) .5 cm 02/09/2018 11:40 AM Wound Width (cm) (Wound Team Only) 19 cm 02/09/2018 11:40 AM Wound Depth (cm) (Wound Team Only) 0.1 02/09/2018 11:40 AM Wound Volume (cm^3) (Wound Team Only) 10.45 cm^3 02/09/2018 11:40 AM Wound Healing % (Wound Team Only) -24.4 02/09/2018 11:40 AM Wound Status (Wound Team Only) Being Treated 02/09/2018 11:40 AM Number of days: 57 Wounds (NOT for Pressure Injuries) 12/20/17 1530 Right;Lower Abdomen Moisture Associated Skin Damage (Active) 12/20/17 1530 Abdomen Wound Orientation: Right;Lower Wound Type: Moisture Associated Skin Damage Wound Type:: Wound Description (Comments): Wound Base Assessment Clean;Dry 02/08/2018 8:51 PM Surrounding Skin Assessment Intact 02/08/2018 8:51 PM Wound Site Closure Open to Air 02/08/2018 8:51 PM Wound Drainage Amount None 02/08/2018 8:51 PM Wound Drainage Description Serous 01/14/2018 9:08 AM Wound Dressing Status Open to Air 02/08/2018 8:51 PM Wound Dressing and / or Treatment Interdry [employer] 02/05/2018 4:00 PM Wounds (NOT for Pressure Injuries) 12/23/17 1345 Left Labia (Active) 12/23/17 1345 Labia Wound Orientation: Left Wound Type: Wound Type:: Wound Description (Comments): Wound Base Assessment [place] 02/08/2018 8:51 PM Surrounding Skin Assessment Edema 02/08/2018 8:51 PM Wound Site Closure None 02/08/2018 8:51 PM Wound Drainage Amount None 02/08/2018 8:51 PM Wound Drainage Description Serous 02/05/2018 10:00 AM Wound Dressing Status Intact 02/05/2018 2:00 AM Wound Dressing and / or Treatment Collagenase 02/06/2018 11:00 AM Wound Length (cm) (Wound Team Only) 2 cm 02/04/2018 4:00 PM Wound Width (cm) (Wound Team Only) 0.8 cm 02/04/2018 4:00 PM Wound Depth (cm) (Wound Team Only) 0.1 02/04/2018 4:00 PM Wound Volume (cm^3) (Wound Team Only) 0.16 cm^3 02/04/2018 4:00 PM Wound Healing % (Wound Team Only) 91.47 02/04/2018 4:00 PM Wounds (NOT for Pressure Injuries) 12/30/17 1002 Left;Anterior Surgical Incision stump (Active) 12/30/17 1002 Wound Orientation: Left;Anterior Wound Type: Surgical Incision Wound Type:: stump Wound Description (Comments): Suture, ceci, telfa and iodine, 4x4, and tegaderm Wound Image 02/09/2018 11:40 AM Wound Base Assessment Black;Gallardo;Eschar;Necrotic tissue 02/09/2018 11:40 AM Surrounding Skin Assessment Red;Purple;Pale 02/09/2018 11:40 AM Wound Site Closure Wound Adhesive Bandage 02/09/2018 11:40 AM Wound Drainage Amount Small 02/09/2018 11:40 AM Wound Drainage Description Gallardo 02/09/2018 11:40 AM Wound Dressing Status Changed 02/09/2018 11:40 AM Wound Dressing and / or Treatment Hydrofera Blue Ready;Hypafix Tape 02/09/2018 11 :40 AM Wound Length (cm) (Wound Team Only) 16 cm 02/09/2018 11:40 AM Wound Width (cm) (Wound Team Only) 25.5 cm 02/09/2018 11:40 AM Wound Depth (cm) (Wound Team Only) 0.1 02/09/2018 11:40 AM Wound Volume (cm^3) (Wound Team Only) 40.8 cm^3 02/09/2018 11:40 AM Wound Healing % (Wound Team Only) -19.44 02/09/2018 11:40 AM Wounds (NOT for Pressure Injuries) 01/10/18 1100 Hip Surgical Incision (Active) 01/10/18 1100 Hip Wound Orientation: Wound Type: Surgical Incision Wound Type:: Wound Description (Comments): XEROFORM, 4X4S, HYPAFIX, WOUND VAC Wound Image 02/09/2018 11:40 AM Wound Base Assessment Moist;Red;Gallardo 02/09/2018 11:40 AM Surrounding Skin Assessment Intact;Red 02/09/2018 11:40 AM Wound Site Closure Wound Adhesive Bandage 02/09/2018 11:40 AM Wound Drainage Amount Moderate 02/09/2018 11:40 AM Wound Drainage Description Gallardo 02/09/2018 11:40 AM Wound Dressing Status Changed 02/09/2018 11:40 AM Wound Dressing and / or Treatment VAC sponge - black;VAC tx: Continuous;VAC @ - 125 mm/Hg 02/09/2018 11:40 AM Wound Length (cm) (Wound Team Only) 17.5 cm 02/09/2018 11:40 AM Wound Width (cm) (Wound Team Only) 29 cm 02/09/2018 11:40 AM Wound Depth (cm) (Wound Team Only) 20 02/09/2018 11:40 AM Wound Volume (cm^3) (Wound Team Only) 26291 cm^3 02/09/2018 11:40 AM Wound Healing % (Wound Team Only) -333.76 02/09/2018 11:40 AM Wound Status (Wound Team Only) Being Treated 02/09/2018 11:40 AM Wounds (NOT for Pressure Injuries) 01/10/18 Left;Inner;Posterior Buttocks Surgical Incision (Active) 01/10/18 Buttocks Wound Orientation: Left;Inner;Posterior Wound Type: Surgical Incision Wound Type:: Wound Description (Comments): Wound Image 02/09/2018 11:40 AM Wound Base Assessment Moist;Green;Gallardo;Necrotic tissue 02/09/2018 11:40 AM Surrounding Skin Assessment Dry;Intact 02/09/2018 11:40 AM Wound Site Closure Wound Adhesive Bandage 02/09/2018 11:40 AM Wound Drainage Amount Small 02/09/2018 11:40 AM Wound Drainage Description Gallardo 02/09/2018 11:40 AM Wound Dressing Status Changed 02/09/2018 11:40 AM Wound Dressing and / or Treatment Hydrofera Blue Ready;Hypafix Tape 02/09/2018 11 :40 AM Wound Length (cm) (Wound Team Only) 6 cm 02/09/2018 11:40 AM Wound Width (cm) (Wound Team Only) 12.5 cm 02/09/2018 11:40 AM Wound Depth (cm) (Wound Team Only) 0.1 02/09/2018 11:40 AM Wound Volume (cm^3) (Wound Team Only) 7.5 cm^3 02/09/2018 11:40 AM Wound Healing % (Wound Team Only) -15.38 02/09/2018 11:40 AM Colostomy 12/30/17 1209 Right (Active) 12/30/17 1209 Right Stoma Assessment Clean;[place] 02/09/2018 12:00 PM Drainage Description Brown 02/09/2018 12:00 PM Peristomal Skin Assessment Dry;Intact 02/09/2018 12:00 PM Dressing Status Clean;Dry;Intact;Changed/New;Bag Changed 02/09/2018 12:00 PM Procedure: Negative Wound Therapy Dressing Change Anesthesia Type: Not Applicable or None Provider(s) and Role: RN Negative Wound Pressure Device Type: KCI VAC Contact layer: None Wound dimension (length x width x depth, tunneling, undermining): See above Number of sponges in the wound prior to dressing change: 4 Number of sponges removed from the wound: 4 Type of sponge: Black foam Number of sponges placed in the wound: 2 Dressing connected to wound VAC with settings of continuous -125mmHg. Next dressing change planned 02/11. Jennifer Diaz RN Pt with moisture associated skin damage with likely fungal rash within gluteal crease. Bedside RN advised to use Antifungal barrier cream (zinc based skin barrier with miconazole) on affected skin BID. Pt's ostomy pouch changed today with pt's RN. Pt has been participating in pouch emptying with staff. Steps of pouch change verbalized as they were performed. Pt denies any questions/concerns at this time. OSTOMY CARE: - Change pouch immediately when leak is identified. Do not reinforce leaking pouch with tape as this will lead to breakdown of skin around stoma and can interfere with future pouching. - Clean stoma and skin around stoma with water and washcloth. Do not use soap, wet wipes, bath wipes, alcohol or ointments as this will interfere with pouch seal to skin. - Cut pouch to fit 1/8-1/4 inch larger than stoma. A thin sliver of skin should be visible between pouch edge and base of stoma. - Ensure skin around stoma is dry then apply pouch to abdomen. - Empty pouch when no more than 1/3 full. - Please use wet wipe to clean out drainable tail of pouch prior to rolling up and securing closed to prevent residue and odor. Will continue to follow. Jennifer Diaz RN, BSN, CWON Wound/Ostomy Nursing Consult Service Office: [phone] Pager: [phone] Wound/Ostomy Team Pager (After Hours/Weekends): [phone] * Milly Clarke APRN - 02/09/2018 11:23 AM CDT Formatting of this note may be different from the original. Endocrinology Progress Note Name: Beata Kaiser Today's Date: 02/09/2018 Admission Date: 01/14/2018 LOS: 26 days Assessment/Plan: Principal Problem: Left hip amputation status Active Problems: Chondrosarcoma (HCC) Acute blood loss as cause of postoperative anemia Depression Anxiety DM (diabetes mellitus) (HCC) 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 Chronic pain Post-op pain Bacteremia Amputated left leg (HCC) Candiduria Assessment: 1. DM type 2 with stress hyperglycemia 2. Hypoglycemia A1c6.5, controlled CAMP TENDER regimen: Metformin 1000mg BID, [id number] mg daily Hypoglycemic episodes on this regimen: None and not checking blood sugars at home Follows up with for diabetes management:Primary care physician at [facility]-complications assessment: Retinopathy: None Peripheral neuropathy: Yes on treatment Autonomic neuropathy:None Nephropathy: None Macrovascular complications:None Risk factor assessment: Last lipid profile - None on file On ACEi/ARB: Yes On Statin: yes 3. 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 CAMP TENDER 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 daily TSH 2.1 this admission Forgets to take her levothyroxine sometime 4. Enteral Nutrition- stopped 02/02/18 5. Left leg amputation Wound Vac 6. Hyperlipidemia On lovastatin 7. Chondorsarcoma Pelvis s/p hemipelvectomy 8. Obesity Class III Recommendations: Fasting BG within target goals today Anticipate with Metformin dose increase on Wednesday, 02/07, prandial insulin will need to be decreased, will continue to assess Continue current insulin regimen: Lantus 12 units, Novolog 6 units + MDCF with meals Continue Metformin 1000 mg BID Continue Januvia 100mg daily Pt would like to have outside food brought in for lunch and dinner today. Yesterday discussed use of [employer] karlene, pt to check carbs and keep within 60g/ meal. Pt had decreased appetite yesterday, feels she'll eat all 3 meals today. Continue LT4 therapy Increase to 200mcg on 01.25.2018 due to continued elevation of TSH / low range normal FT4 Repeat TSH testing in 6 weeks, March 08, 2018 On statin therapy Pt seen and discussed with Dr. Castro Subjective Beaat Kaiser is a 52 y.o. female. Pt working in the gym this morning. Pt only ate breakfast yesterday, felt full from breakfast all day. Was treated with apple juice before hyperbaric treatment and had BG of 248. Reports eating all of breakfast and plans to eat lunch and dinner today. History of Present Illness Beata Kaiser is a 52 y.o. S/p left hemipelvectomy 12/13/17 DM2 with stress hyperglycemia HgbA1C 6.5%. CAMP TENDER meds: Metformin + Jardiance / PCP in [place], [place] Review of Systems: Denies chest pain/ sob/ nausea/ vomiting/ abd cramping/ diarrhea Medications Scheduled Meds: aspirin chewable tablet 81 mg 81 mg Oral QDAY buPROPion (WELLBUTRIN) tablet 100 mg 100 mg Oral TID busPIRone (BUSPAR) tablet 30 mg 30 mg Oral BID carbamide peroxide (DEBROX) 6.5 % otic solution 5 drop 5 drop Both Ears BID collagenase (SANTYL) topical ointment Topical QDAY docusate (COLACE) capsule 100 mg 100 mg Oral BID ertapenem (INVANZ) IVP 1 g 1 g Intravenous Q24H* ferrous sulfate (FEOSOL, FEROSUL) tablet 325 mg 325 mg Oral TID w/ meals gabapentin (NEURONTIN) capsule 600 mg 600 mg Oral Q6H insulin aspart U-100 (NOVOLOG FLEXPEN) injection PEN 0-14 Units 0-14 Units Subcutaneous ACHS insulin aspart U-100 (NOVOLOG FLEXPEN) injection PEN 6 Units 6 Units Subcutaneous TID w/ meals insulin glargine (LANTUS SOLOSTAR, BASAGLAR) injection PEN 12 Units 12 Units Subcutaneous QHS lactobacillus rhamnosus GG (CULTURELLE) 15 billion cell capsule 1 capsule 1 capsule Oral BID w/meals levothyroxine (SYNTHROID) tablet 200 mcg 200 mcg Oral QDAY before breakfast lidocaine (LIDODERM) 5 % topical patch 2 patch 2 patch Topical QDAY metFORMIN (GLUCOPHAGE) tablet 1,000 mg 1,000 mg Oral BID w/meals nortriptyline (PAMELOR) capsule 100 mg 100 mg Oral QHS oxyCODONE (ROXICODONE, OXY-IR) tablet 15 mg 15 mg Oral Once per day on Wed oxyCODONE SR (OXYCONTIN) tablet 10 mg 10 mg Oral BID pantoprazole DR (PROTONIX) tablet 40 mg 40 mg Oral QDAY(21) rivaroxaban (XARELTO) tablet 20 mg 20 mg Oral QDAY w/breakfast simvastatin (ZOCOR) tablet 20 mg 20 mg Oral QHS sitaGLIPtin (JANUVIA) tablet 100 mg 100 mg Oral QDAY sodium chloride PF 0.9% flush 20 mL 20 mL Intravenous FLUSH TID vancomycin (VANCOCIN) 1,750 mg in dextrose 5% (D5W) IVPB 1,750 mg Intravenous Q24H* vancomycin, pharmacy to manage 1 each Service Per Pharmacy Continuous Infusions: PRN and Respiratory Meds:acetaminophen Q6H PRN, alum/mag hydroxide/simeth Q6H PRN, calcium carbonate Q4H PRN, milk of magnesia (CONC) Q4H PRN, ondansetron ( ZOFRAN) IV Q6H PRN, oxyCODONE Q4H PRN, pancrelipase 20,000 Units/ sodium bicarbonate 650 mg(#) PRN (Catalogue Librarian from Rx) Objective: Vital Signs: Last Filed Vital Signs: 24 Hour Range BP: 106/50 (02/10 400) Temp: 37.2 C (98.9 F) (02/10 400) Pulse: 111 (02/10 400) Respirations: 18 PER MINUTE (02/10 400) SpO2: 92 % (02/10 400) O2 Delivery: None (Room Air) (02/10 400) BP: (106-133)/(50-65) Temp: [36.4 C (97.6 F)-37.3 C (99.2 F)] Pulse: [94-120] Respirations: [18 PER MINUTE] SpO2: [92 %-100 %] O2 Delivery: None (Room Air) Intensity Pain Scale 0-10 (Pain 1): 4 (02/09/18 0832) Vitals: 02/07/18 0710 02/08/18 0606 02/09/18 0400 Weight: 90.5 kg (199 lb 8.3 oz) 90 kg (198 lb 6.6 oz) 91.3 kg (201 lb 4.5 oz) Intake/Output Summary: (Last 24 hours) Intake/Output Summary (Last 24 hours) at 02/09/18 1123 Last data filed at 02/09/18 0900 Gross per 24 hour Intake 1850 ml Output 3375 ml Net -1525 ml Stool Occurrence: 1 Physical Exam General: Alert, cooperative, no distress, appears stated age Eyes: Conjunctivae/corneas clear. ENT: Moist mucous membranes Lungs: Breathing comfortably on RA Extremities: Left jamil-pelvectomy, no edema TECHNICAL SOLUTION ARCHITECT: Nonfocal, moves all extremities Lab Review General Chemistry: Lab Results Component Value Date NA 139 02/09/2018 K 4.1 02/09/2018 CL 103 02/09/2018 GAP 6 02/09/2018 BUN 16 02/09/2018 CR 0.56 02/09/2018 GLU 101 02/09/2018 CA 8.9 02/09/2018 ALBUMIN 2.3 02/04/2018 LACTIC 1.4 01/21/2018 OBSCA 1.07 12/19/2017 MG 1.8 01/03/2018 TOTBILI 0.2 02/04/2018 , Endocrine: Lab Results Component Value Date TSH 10.130 01/25/2018 , HgbA1C: Lab Results Component Value Date HGBA1C 6.5 12/28/2017 and Lipid Profile: Lab Results Component Value Date TRIG 254 01/13/2018 Glucose, POC Date/Time Value Ref Range Status 02/09/2018 0657 121 (H) 70 - 100 MG/DL Final 02/08/2018 2102 100 70 - 100 MG/DL Final 02/08/2018 1843 248 (H) 70 - 100 MG/DL Final 02/08/2018 1521 172 (H) 70 - 100 MG/DL Final 02/08/2018 1323 107 (H) 70 - 100 MG/DL Final 02/08/2018 1205 114 (H) 70 - 100 MG/DL Final 02/08/2018 0654 101 (H) 70 - 100 MG/DL Final 02/07/2018 2108 97 70 - 100 MG/DL Final Point of Care Testing (Last 24 hours) Glucose: (!) 101 (02/09/18 0609) POC Glucose (Download): (!) 121 (02/09/18 0657) Radiology and other Diagnostics Review: No pertinent radiology. Thank you for the opportunity to participate in this pt's care Please page with any questions or concerns Milly Clarke APRN Pager [phone] Office: [phone] Associated attestation - Yobani Zafar MD - 02/09/2018 11:32 AM CDT Physician Attestation: I personally performed the banuelos elements of the E/M service, discussed case with mid-level provider (select type of mid-level provider) and concur with documentation of history, physical exam, assessment, and treatment plan unless otherwise noted. * Darlene Garcia RN - 02/08/2018 6:30 PM CDT I have reviewed the notes, assessment, and/or procedures performed by Jaclyn Yang and concur with her/his documentation unless otherwise noted. * Darlene Garcia RN - 02/08/2018 3:33 PM CDT Pt returned from [facility] per cart with [facility] transporters. * Adrienne Zarate MD - 02/08/2018 3:31 PM CDT Formatting of this note may be different from the original. Subjective: Patient continuing to improve. Appears in decent spirits today. Tolerating hyperbarics. Objective: Blood pressure 120/59, pulse 105, temperature 37.2 C (98.9 F), height 160 cm (63"), weight 90 kg (198 lb 6.6 oz), last menstrual period 2012, SpO2 95 %. General: AAOx3, NAD Cardiac: tachycardic Respirations: Unlabored Abdomen: soft, nd, nt, colostomy present Extremities: Dressings intact, wound vac holding suction WV: 650 ml/24 hrs No results for input(s): PTT, INR in the last 72 hours. CBC w/Diff Lab Results Component Value Date/Time WBC 9.0 02/07/2018 07:55 AM HGB 7.9 (L) 02/07/2018 07:55 AM HCT 23.9 (L) 02/07/2018 07:55 AM PLTCT 490 (H) 02/07/2018 07:55 AM Basic Metabolic Profile Lab Results Component Value Date/Time NA 140 02/08/2018 05:49 AM K 4.1 02/08/2018 05:49 AM CL 104 02/08/2018 05:49 AM CO2 31 (H) 02/08/2018 05:49 AM GAP 5 02/08/2018 05:49 AM Lab Results Component Value Date/Time BUN 15 02/08/2018 05:49 AM CR 0.54 02/08/2018 05:49 AM GLU 109 (H) 02/08/2018 05:49 AM A/P: 52 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 -Management and pain control per rehab -Recommend continue melchor catheter for wound healing -Xarelto for DVT -MWF WV changes with wound team -Recommend ongoing psychology visits per patient request for coping strategies -Compression shorts throughout day as able -Wound team and hyperbarics following- appreciate assistance -Will continue to follow while in rehab, call with questions Adrienne Zarate MD [phone] * Darlene Garcia RN - 02/08/2018 12:45 PM CDT Pt to HBO per cart with [facility] transporters * Milly Clarke APRN - 02/08/2018 12:21 PM CDT Formatting of this note may be different from the original. Endocrinology Progress Note Name: Beata Kaiser Today's Date: 02/08/2018 Admission Date: 01/14/2018 LOS: 25 days Assessment/Plan: Principal Problem: Left hip amputation status Active Problems: Chondrosarcoma (HCC) Acute blood loss as cause of postoperative anemia Depression Anxiety DM (diabetes mellitus) (HCC) 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 Chronic pain Post-op pain Bacteremia Amputated left leg (HCC) Candiduria Assessment: 1. DM type 2 with stress hyperglycemia 2. Hypoglycemia A1c6.5, controlled CAMP TENDER regimen: Metformin 1000mg BID, [id number] mg daily Hypoglycemic episodes on this regimen: None and not checking blood sugars at home Follows up with for diabetes management:Primary care physician at [facility] Diabetic-complications assessment: Retinopathy: None Peripheral neuropathy: Yes on treatment Autonomic neuropathy:None Nephropathy: None Macrovascular complications:None Risk factor assessment: Last lipid profile - None on file On ACEi/ARB: Yes On Statin: yes 3. 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 CAMP TENDER 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 daily TSH 2.1 this admission Forgets to take her levothyroxine sometime 4. Enteral Nutrition- stopped 02/02/18 5. Left leg amputation Wound Vac 6. Hyperlipidemia On lovastatin 7. Chondorsarcoma Pelvis s/p hemipelvectomy 8. Obesity Class III Recommendations: BG remains within target goals today Anticipate with Metformin dose increase prandial insulin will need to be decreased, will continue to assess Continue current insulin regimen: Lantus 12 units, Novolog 6 units + MDCF with meals Continue Metformin 1000 mg BID Continue Januvia 100mg daily Pt would like to have outside food brought in for lunch and dinner today and tomorrow. Discussed use of [employer] karlene, pt to check carbs and keep within 60g/ meal. Demonstrated to pt and . Continue LT4 therapy Increase to 200mcg on 01.25.2018 due to continued elevation of TSH / low range normal FT4 Repeat TSH testing in 6 weeks, March 08, 2018 On statin therapy Pt discussed with Dr. Castro Subjective Beata Kaiser is a 52 y.o. female. Pt working in the gym this morning, at bedside. She would like to have her bring in lunch and dinner today, and lunch tomorrow. She would like to keep these meals reasonable and within carb restrictions. History of Present Illness Beata Kaiser is a 52 y.o. S/p left hemipelvectomy 12/13/17 DM2 with stress hyperglycemia HgbA1C 6.5%. CAMP TENDER meds: Metformin + Jardiance / PCP in [place], [place] Review of Systems: Denies chest pain/ sob/ nausea/ vomiting/ abd cramping/ diarrhea Has needed stool softeners Medications Scheduled Meds: aspirin chewable tablet 81 mg 81 mg Oral QDAY buPROPion (WELLBUTRIN) tablet 100 mg 100 mg Oral TID busPIRone (BUSPAR) tablet 30 mg 30 mg Oral BID carbamide peroxide (DEBROX) 6.5 % otic solution 5 drop 5 drop Both Ears BID collagenase (SANTYL) topical ointment Topical QDAY docusate (COLACE) capsule 100 mg 100 mg Oral BID ertapenem (INVANZ) IVP 1 g 1 g Intravenous Q24H* ferrous sulfate (FEOSOL, FEROSUL) tablet 325 mg 325 mg Oral TID w/ meals gabapentin (NEURONTIN) capsule 600 mg 600 mg Oral Q6H insulin aspart U-100 (NOVOLOG FLEXPEN) injection PEN 0-14 Units 0-14 Units Subcutaneous ACHS insulin aspart U-100 (NOVOLOG FLEXPEN) injection PEN 6 Units 6 Units Subcutaneous TID w/ meals insulin glargine (LANTUS SOLOSTAR, BASAGLAR) injection PEN 12 Units 12 Units Subcutaneous QHS lactobacillus rhamnosus GG (CULTURELLE) 15 billion cell capsule 1 capsule 1 capsule Oral BID w/meals levothyroxine (SYNTHROID) tablet 200 mcg 200 mcg Oral QDAY before breakfast lidocaine (LIDODERM) 5 % topical patch 2 patch 2 patch Topical QDAY metFORMIN (GLUCOPHAGE) tablet 1,000 mg 1,000 mg Oral BID w/meals nortriptyline (PAMELOR) capsule 100 mg 100 mg Oral QHS oxyCODONE (ROXICODONE, OXY-IR) tablet 15 mg 15 mg Oral Once per day on Wed oxyCODONE SR (OXYCONTIN) tablet 10 mg 10 mg Oral BID pantoprazole DR (PROTONIX) tablet 40 mg 40 mg Oral QDAY(21) rivaroxaban (XARELTO) tablet 20 mg 20 mg Oral QDAY w/breakfast simvastatin (ZOCOR) tablet 20 mg 20 mg Oral QHS sitaGLIPtin (JANUVIA) tablet 100 mg 100 mg Oral QDAY sodium chloride PF 0.9% flush 20 mL 20 mL Intravenous FLUSH TID vancomycin (VANCOCIN) 1,750 mg in dextrose 5% (D5W) IVPB 1,750 mg Intravenous Q24H* vancomycin, pharmacy to manage 1 each Service Per Pharmacy Continuous Infusions: PRN and Respiratory Meds:acetaminophen Q6H PRN, alum/mag hydroxide/simeth Q6H PRN, calcium carbonate Q4H PRN, milk of magnesia (CONC) Q4H PRN, ondansetron ( ZOFRAN) IV Q6H PRN, oxyCODONE Q4H PRN, pancrelipase 20,000 Units/ sodium bicarbonate 650 mg(#) PRN (Catalogue Librarian from Rx) Objective: Vital Signs: Last Filed Vital Signs: 24 Hour Range BP: 120/59 (02/08 0400) Temp: 37.2 C (98.9 F) (02/09 400) Pulse: 105 (02/09 400) Respirations: 18 PER MINUTE (02/09 400) SpO2: 95 % (02/09 400) O2 Delivery: None (Room Air) (02/09 400) BP: (107-125)/(49-59) Temp: [36.8 C (98.3 F)-37.6 C (99.6 F)] Pulse: [105-121] Respirations: [18 PER MINUTE-20 PER MINUTE] SpO2: [92 %-95 %] O2 Delivery: None (Room Air) Intensity Pain Scale 0-10 (Pain 1): 2 (02/08/18 1100) Vitals: 02/07/18 0400 02/07/18 0710 02/08/18 0606 Weight: 83 kg (182 lb 15.7 oz) 90.5 kg (199 lb 8.3 oz) 90 kg (198 lb 6.6 oz) Intake/Output Summary: (Last 24 hours) Intake/Output Summary (Last 24 hours) at 02/08/18 1221 Last data filed at 02/08/18 0900 Gross per 24 hour Intake 825 ml Output 4700 ml Net -3875 ml Stool Occurrence: 1 Physical Exam General: Alert, cooperative, no distress, appears stated age Eyes: Conjunctivae/corneas clear. ENT: Moist mucous membranes Lungs: Clear to auscultation bilaterally Heart: Regular rate and rhythm Abdomen: Soft, non-tender. Extremities: Left jamil-pelvectomy, no edema TECHNICAL SOLUTION ARCHITECT: Nonfocal, moves all extremities Lab Review General Chemistry: Lab Results Component Value Date NA 140 02/08/2018 K 4.1 02/08/2018 CL 104 02/08/2018 GAP 5 02/08/2018 BUN 15 02/08/2018 CR 0.54 02/08/2018 GLU 109 02/08/2018 CA 8.8 02/08/2018 ALBUMIN 2.3 02/04/2018 LACTIC 1.4 01/21/2018 OBSCA 1.07 12/19/2017 MG 1.8 01/03/2018 TOTBILI 0.2 02/04/2018 , Endocrine: Lab Results Component Value Date TSH 10.130 01/25/2018 , HgbA1C: Lab Results Component Value Date HGBA1C 6.5 12/28/2017 and Lipid Profile: Lab Results Component Value Date TRIG 254 01/13/2018 Glucose, POC Date/Time Value Ref Range Status 02/08/2018 1205 114 (H) 70 - 100 MG/DL Final 02/08/2018 0654 101 (H) 70 - 100 MG/DL Final 02/07/2018 2108 97 70 - 100 MG/DL Final 02/07/2018 1649 112 (H) 70 - 100 MG/DL Final 02/07/2018 1524 116 (H) 70 - 100 MG/DL Final 02/07/2018 1321 127 (H) 70 - 100 MG/DL Final 02/07/2018 1154 162 (H) 70 - 100 MG/DL Final 02/07/2018 0704 94 70 - 100 MG/DL Final Point of Care Testing (Last 24 hours) Glucose: (!) 109 (02/08/18 0549) POC Glucose (Download): (!) 114 (02/08/18 1205) Radiology and other Diagnostics Review: No pertinent radiology. Thank you for the opportunity to participate in this pt's care Please page with any questions or concerns Milly Clarke APRN Pager [id number] Office: [id number] * Ruth Allen MD - 02/08/2018 11:06 AM CDT Formatting of this note may be different from the original. ATTESTATION I personally performed the banuelos portions of the E/M visit, discussed case with resident and concur with resident documentation of history, physical exam, assessment, and treatment plan unless otherwise noted. Labs and VS reviewed and stable. Pt report RLE edema. On exam, 1+ and pitting to lower thigh. Compressiong stocking and monitor, not changed from previously. Pt agreeable to decrease gabapentin for possible tremor or myoclonus. increase nortriptyline for phantom limb pain. Will need to reschedule imaging from today until outpatient. Will f/u ID duration abx, recent cultures neg. Patient remains medically stable to participate in IRF program. Staff name: Ruth Allen MD Date: 02/08/2018 Physical Medicine & Rehabilitation Progress Note Today's Date: 02/08/2018 Admission Date: 01/14/2018 LOS: 25 days Insurance: [facility] Principal Problem: Left hip amputation status Active Problems: Chondrosarcoma (HCC) Acute blood loss as cause of postoperative anemia Depression Anxiety DM (diabetes mellitus) (HCC) 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 Chronic pain Post-op pain Bacteremia Amputated left leg (HCC) Candiduria Assessment/Plan: Beata Lema a 52 y.o.female[facility]with the following issues : 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 Patient will need a modified schedule of 15 hours over 7 days to accommodate HBOT schedule. Goals: household mobility at wheelchair level min A Tentative discharge date: 02/28/18 Recommended therapy after discharge: home health OT/PT Recommended equipment: Hospital bed, wheelchair/cushion, slideboard, ramp - Patient requires hospital bed at discharge. Patient requires positioning of the body in ways not feasible with ordinary beds to in order to alleviate pain. Patient requires frequent repositioning of the body and/or has an immediate need for change in body position. Daily Functional Update: Transfers Device Sit to Stand Transfer: Assistive Device: Sliding Board (02/08/2018 8:30 AM) No Data Recorded Gait Device Assist Required Distance Gait: Assistive Device: IV Pole (12/01/2017 11:00 AM) No Data Recorded Gait Distance: 400 feet (12/01/2017 11:00 AM) Toileting Assist Required Equipment Toilet Transfer Toileting Assist: Total Assist (02/06/2018 8:30 AM) No Data Recorded No Data Recorded Dressing Lower Body LE Dressing Assist: Total Assist (02/08/2018 8:30 AM) Chrondrosarcoma s/p hemipelvectomy and hemisacrectomy Lymphedema wound and residual limb >wound vac in place. Changes M/W/F by wound vac team. PO 15mg oxycodone MWF for [place] changes + lidocaine into sponge during acute hospitalization - weaned off IV pain meds >Change dressings prn with dry sterile gauze and hypafix tape >vitamin A &D for labia wound, collagenase for left lower abdomen wound healing >Per plastic surgery note 01/24 not recommending further surgical intervention at this time >01/31 Pt had trial of HBOT which she tolerated well >Plan on 20 treatment of HBOT M-F in late afternoon Post-op pain in setting of chronic pain Phantom limb pain, neuropathic pain >Tylenol, oxycontin 10mg BID and oxycodone 20mg q3h prn. Lidoderm patch prn. > Increase nortriptyline 100mg QHS > Decrease gabapentin 600mg Q6h Tremors -Likely related to gabapentin >Will decrease gabapentin to 600mg Q6h s/p diverting colostomy - Stool saturating wound. Diverting colostomy done 12/30 >wound/ostomy consulted, working on education with nursing Bladder injury, recent repair - bladder and urethral injuries during hemipelvectomy on 12/14/17 - underwent cystoscopy with left ureteral stent insertion, Bladder neck repair, Urethroplasty and repair of urethral injury, Vaginal closure >continue melchor catheter > Urology f/u after rehab discharge Chest lesions (metastases?) - 11/26/17 CT: few small pulmonary nodules. >plan is to resect the masses in the chest later >CT chest scheduled for 02/08 with f/u with CTS surgery - spoke with CTS 02/08 and they would f/u on this GBS bacteremia w/ sepsis due to left hip wound - Fever and leukocytosis began 12/20/17, Bcx 1/2 positive for GBS on 12/23 -Fever 01/21 - blood cx and urine cx NGTD >Completed course of abx 01/23 ertapenem > Multiple fevers 01/26 in pm, started Vanc/Meropenem and obtained blood cx x2 and UA/reflex cx - 09/21 bcx contaminated, rest NGTD > Repeat blood cx's 01/31 NGTD > Duration of IV abx TBD DVT - 11/30/17 IVC filter for DVT within the external iliac vein >cont Xarelto Tremors -Pt complaining of intermittent tremors that have been going on since her acute hospitalization -Likely related to her gabapentin >Continue to monitor ABLA - Transfusion 01/15 and 01/28 1U PRBC - monitor labs T2DM - A1c 6.5%, controlled - CAMP TENDER regimen: Metformin thousand milligrams twice a day, [id number] mg daily >Continue with Lantus 12 units QHS, novolog 6u postmeal, MDCF with meals > Metformin 1000mg BID, Januvia 100mg daily 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 - CAMP TENDER 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 daily - TSH 2.1 this admission >levothyroxine increased 200 mcg on 01/26 >She will need repeat thyroid function tests in 6-8 weeks (~March 08) Major depressive disorder, recurrent, moderate CLAUDIA Adjustment disorder with mixed anxiety and depressed mood > continue CAMP TENDER Wellbutrin and buspar, started on nortriptyline this admission Nutrition - 01/31 albumin 2.4, Prealbumin 10.0, recheck 02/07 -Pt is currently meeting caloric and protein needs > weekly prealbumin and albumin - remains low > D/c corpak 02/02 > Continue current diet with protein supplementation HLD: holding CAMP TENDER statin Insomnia: nortriptyline 100mg qhs DVT Prophylaxis:Xarelto, will discharge on it Ravi Pride, DO Subjective No acute events overnight. Pt resting in bed when seen this am. Pt agreeable to trying lower dose of gabapentin and increasing dose or nortriptyline to see if it will help with her tremors she's been complaining of. Objective Vital Signs: Last Filed Vital Signs: 24 Hour Range BP: 120/59 (02/09 400) Temp: 37.2 C (98.9 F) (02/09 400) Pulse: 105 (02/09 400) Respirations: 18 PER MINUTE (02/09 400) SpO2: 95 % (02/09 400) O2 Delivery: None (Room Air) (02/09 400) BP: (107-125)/(49-59) Temp: [36.8 C (98.3 F)-37.6 C (99.6 F)] Pulse: [105-121] Respirations: [18 PER MINUTE-20 PER MINUTE] SpO2: [92 %-95 %] O2 Delivery: None (Room Air) Intensity Pain Scale 0-10 (Pain 1): 7 (02/08/18 0913) Vitals: 02/07/18 0400 02/07/18 0710 02/08/18 0606 Weight: 83 kg (182 lb 15.7 oz) 90.5 kg (199 lb 8.3 oz) 90 kg (198 lb 6.6 oz) Intake/Output Summary: (Last 24 hours) Intake/Output Summary (Last 24 hours) at 02/08/18 1108 Last data filed at 02/08/18 0900 Gross per 24 hour Intake 1065 ml Output 4700 ml Net -3635 ml Stool Occurrence: 1 Oral Diet Order: Diabetic 9505-5134 Kcal/day (60 g Carb/meal, 30 g Carb/HS snack ) Last BM Date: 02/07/18 Lab: Results for orders placed or performed during the hospital encounter of (from the past 24 hour(s)) POC GLUCOSE Collection Time: 02/07/18 11:54 AM # # Low-High Glucose, POC 162 (H) 70 - 100 MG/DL POC GLUCOSE Collection Time: 02/07/18 1:21 PM # # Low-High Glucose, POC 127 (H) 70 - 100 MG/DL POC GLUCOSE Collection Time: 02/07/18 3:24 PM # # Low-High Glucose, POC 116 (H) 70 - 100 MG/DL POC GLUCOSE Collection Time: 02/07/18 4:49 PM # # Low-High Glucose, POC 112 (H) 70 - 100 MG/DL POC GLUCOSE Collection Time: 02/07/18 9:08 PM # # Low-High Glucose, POC 97 70 - 100 MG/DL BASIC METABOLIC PANEL CELLULAR THERAPEUTICS Collection Time: 02/08/18 5:49 AM # # Low-High Sodium 140 137 - 147 MMOL/L Potassium 4.1 3.5 - 5.1 MMOL/L Chloride 104 98 - 110 MMOL/L CO2 31 (H) 21 - 30 MMOL/L Anion Gap 5 3 - 12 Glucose 109 (H) 70 - 100 MG/DL Blood Urea Nitrogen 15 7 - 25 MG/DL Creatinine 0.54 0.4 - 1.00 MG/DL Calcium 8.8 8.5 - 10.6 MG/DL eGFR Non >60 >60 mL/min eGFR >60 >60 mL/min POC GLUCOSE Collection Time: 02/08/18 6:54 AM # # Low-High Glucose, POC 101 (H) 70 - 100 MG/DL Scheduled Meds: aspirin chewable tablet 81 mg 81 mg Oral QDAY buPROPion (WELLBUTRIN) tablet 100 mg 100 mg Oral TID busPIRone (BUSPAR) tablet 30 mg 30 mg Oral BID carbamide peroxide (DEBROX) 6.5 % otic solution 5 drop 5 drop Both Ears BID collagenase (SANTYL) topical ointment Topical QDAY docusate (COLACE) capsule 100 mg 100 mg Oral BID ertapenem (INVANZ) IVP 1 g 1 g Intravenous Q24H* ferrous sulfate (FEOSOL, FEROSUL) tablet 325 mg 325 mg Oral TID w/ meals gabapentin (NEURONTIN) capsule 600 mg 600 mg Oral Q6H insulin aspart U-100 (NOVOLOG FLEXPEN) injection PEN 0-14 Units 0-14 Units Subcutaneous ACHS insulin aspart U-100 (NOVOLOG FLEXPEN) injection PEN 6 Units 6 Units Subcutaneous TID w/ meals insulin glargine (LANTUS SOLOSTAR, BASAGLAR) injection PEN 12 Units 12 Units Subcutaneous QHS lactobacillus rhamnosus GG (CULTURELLE) 15 billion cell capsule 1 capsule 1 capsule Oral BID w/meals levothyroxine (SYNTHROID) tablet 200 mcg 200 mcg Oral QDAY before breakfast lidocaine (LIDODERM) 5 % topical patch 2 patch 2 patch Topical QDAY metFORMIN (GLUCOPHAGE) tablet 1,000 mg 1,000 mg Oral BID w/meals nortriptyline (PAMELOR) capsule 100 mg 100 mg Oral QHS oxyCODONE (ROXICODONE, OXY-IR) tablet 15 mg 15 mg Oral Once per day on Wed oxyCODONE SR (OXYCONTIN) tablet 10 mg 10 mg Oral BID pantoprazole DR (PROTONIX) tablet 40 mg 40 mg Oral QDAY(21) rivaroxaban (XARELTO) tablet 20 mg 20 mg Oral QDAY w/breakfast simvastatin (ZOCOR) tablet 20 mg 20 mg Oral QHS sitaGLIPtin (JANUVIA) tablet 100 mg 100 mg Oral QDAY sodium chloride PF 0.9% flush 20 mL 20 mL Intravenous FLUSH TID vancomycin (VANCOCIN) 1,750 mg in dextrose 5% (D5W) IVPB 1,750 mg Intravenous Q24H* vancomycin, pharmacy to manage 1 each Service Per Pharmacy Continuous Infusions: PRN and Respiratory Meds:acetaminophen Q6H PRN, alum/mag hydroxide/simeth Q6H PRN, calcium carbonate Q4H PRN, milk of magnesia (CONC) Q4H PRN, ondansetron ( ZOFRAN) IV Q6H PRN, oxyCODONE Q4H PRN, pancrelipase 20,000 Units/ sodium bicarbonate 650 mg(#) PRN (Catalogue Librarian from Rx) Physical Exam VS: BP 120/59 (BP Source: Arm, Left) | Pulse 105 | Temp 37.2 C (98.9 F) | Ht 160 cm (63") | Wt 90 kg (198 lb 6.6 oz) | LMP 01/14/2013 | SpO2 95% | BMI 35.15 kg/m Gen: awake, alert, NAD HEENT: NCAT, MMM CV: RRR, no murmur Pulm: CTAB, no w/r Abd: nondistended, nontender Extremities: mild edema rle, s/p hemipelvectomy on left with dressings and wound vac in place. Moves extremities spontaneously and with purpose. Psych: Pleasent mood Neuro: face symmetric. Speech clear and fluent. Moves upper extremities spontaneously against gravity. Therapy Notes & Labs Reviewed. * Tamara Reilly - 02/07/2018 1:03 PM CDT Patient has left the unit at this time for [facility] [place] via [employer] van. * Ruth Allen MD - 02/07/2018 12:07 PM CDT Formatting of this note may be different from the original. ATTESTATION I personally performed the banuelos portions of the E/M visit, discussed case with resident and concur with resident documentation of history, physical exam, assessment, and treatment plan unless otherwise noted. Labs and VS reviewed and stable. All repeat cultures negative (final). Patient reports tremor in hands, sometimes legs. could be due to high dose gabapentin, could titrate neuropathic pain meds. Will f/u ID duration abx. Patient remains medically stable to participate in IRF program. Staff name: Ruth Allen MD Date: 02/07/2018 Physical Medicine & Rehabilitation Progress Note Today's Date: 02/07/2018 Admission Date: 01/14/2018 LOS: 24 days Insurance: [facility] Principal Problem: Left hip amputation status Active Problems: Chondrosarcoma (HCC) Acute blood loss as cause of postoperative anemia Depression Anxiety DM (diabetes mellitus) (HCC) 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 Chronic pain Post-op pain Bacteremia Amputated left leg (HCC) Candiduria Assessment/Plan: Beata Lema a 52 y.o.femalead[facility] on [facility]18with the following issues : 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 Patient will need a modified schedule of 15 hours over 7 days to accommodate HBOT schedule. Goals: household mobility at wheelchair level min A Tentative discharge date: 02/28/18 Recommended therapy after discharge: home health OT/PT Recommended equipment: Hospital bed, wheelchair/cushion, slideboard, ramp - Patient requires hospital bed at discharge. Patient requires positioning of the body in ways not feasible with ordinary beds to in order to alleviate pain. Patient requires frequent repositioning of the body and/or has an immediate need for change in body position. Daily Functional Update: Transfers Device Sit to Stand Transfer: Assistive Device: Sliding Board (02/07/2018 8:00 AM) No Data Recorded Gait Device Assist Required Distance Gait: Assistive Device: IV Pole (12/01/2017 11:00 AM) No Data Recorded Gait Distance: 400 feet (12/01/2017 11:00 AM) Toileting Assist Required Equipment Toilet Transfer Toileting Assist: Total Assist (02/06/2018 8:30 AM) No Data Recorded No Data Recorded Dressing Lower Body LE Dressing Assist: Total Assist (02/07/2018 8:00 AM) Chrondrosarcoma s/p hemipelvectomy and hemisacrectomy Lymphedema wound and residual limb >wound vac in place. Changes M/W/F by wound vac team. PO 15mg oxycodone MWF for [place] changes + lidocaine into sponge during acute hospitalization - weaned off IV pain meds >Change dressings prn with dry sterile gauze and hypafix tape >vitamin A &D for labia wound, collagenase for left lower abdomen wound healing >Per plastic surgery note 01/24 not recommending further surgical intervention at this time >01/31 Pt had trial of HBOT which she tolerated well >Plan on 20 treatment of HBOT M-F in late afternoon Post-op pain in setting of chronic pain Phantom limb pain, neuropathic pain >Tylenol, oxycontin 10mg BID and oxycodone 20mg q3h prn. Lidoderm patch prn. > Continue nortriptyline 50mg QHS (increased 01/27) > Continue gabapentin 800mg Q6h s/p diverting colostomy - Stool saturating wound. Diverting colostomy done 12/30 >wound/ostomy consulted, working on education with nursing Bladder injury, recent repair - bladder and urethral injuries during hemipelvectomy on 12/14/17 - underwent cystoscopy with left ureteral stent insertion, Bladder neck repair, Urethroplasty and repair of urethral injury, Vaginal closure >continue melchor catheter > Urology f/u after rehab discharge Chest lesions (metastases?) - 11/26/17 CT: few small pulmonary nodules. >plan is to resect the masses in the chest later >CT chest scheduled for 02/08 with f/u with CTS surgery - may need to reschedule GBS bacteremia w/ sepsis due to left hip wound - Fever and leukocytosis began 12/20/17, Bcx 1/ positive for GBS on 12/23 -Fever 01/21 - blood cx and urine cx NGTD >Completed course of abx 01/23 ertapenem > Multiple fevers 01/26 in pm, started Vanc/Meropenem and obtained blood cx x2 and UA/reflex cx - 09/21 bcx contaminated, rest NGTD > Repeat blood cx's 03/03 NGTD > Duration of IV abx TBD DVT - 11/30/17 IVC filter for DVT within the external iliac vein >cont Xarelto Tremors -Pt complaining of intermittent tremors that have been going on since her acute hospitalization -Likely related to her gabapentin >Continue to monitor ABLA - Transfusion 01/15 and 01/28 1U PRBC - monitor labs T2DM - A1c 6.5%, controlled - CAMP TENDER regimen: Metformin thousand milligrams twice a day, [id number] mg daily >Continue with Lantus 20 units QHS, novolog 14u postmeal, MDCF 5x per day 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 - CAMP TENDER 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 daily - TSH 2.1 this admission >levothyroxine increased 200 mcg on 01/26 >She will need repeat thyroid function tests in 6-8 weeks (~March 08) Major depressive disorder, recurrent, moderate CLAUDIA Adjustment disorder with mixed anxiety and depressed mood > continue CAMP TENDER Wellbutrin and buspar, started on nortriptyline this admission Nutrition - 01/31 albumin 2.4, Prealbumin 10.0, recheck 02/07 -Pt is currently meeting caloric and protein needs > weekly prealbumin and albumin - remains low > D/c corpak 02/02 > Continue current diet with protein supplementation HLD: holding CAMP TENDER statin Insomnia: nortriptyline 50mg qhs DVT Prophylaxis:Xarelto, will discharge on it Ravi Pride, DO Subjective No acute events overnight. Pt's Hg this am 6.6, repeat showed Hg of 7.9. No need to transfuse at this point. Pt complaining of intermittent tremor mostly in her hands. Pt educated this could be related to her gabapentin medications. She declined trying a lower dose 2/2 pain. Will continue to monitor. Objective Vital Signs: Last Filed Vital Signs: 24 Hour Range BP: 113/57 (02/08 400) Temp: 37.4 C (99.4 F) (02/08 400) Pulse: 110 (02/08 400) Respirations: 18 PER MINUTE (02/08 400) SpO2: 92 % (02/08 400) O2 Delivery: None (Room Air) (02/08 400) BP: (102-141)/(54-68) Temp: [37.1 C (98.7 F)-37.6 C (99.6 F)] Pulse: [107-126] Respirations: [18 PER MINUTE] SpO2: [92 %-98 %] O2 Delivery: None (Room Air) Intensity Pain Scale 0-10 (Pain 1): 10 (02/07/18 1035) Vitals: 02/06/18 0400 02/07/18 0400 02/07/18 0710 Weight: 99.2 kg (218 lb 11.1 oz) 83 kg (182 lb 15.7 oz) 90.5 kg (199 lb 8.3 oz) Intake/Output Summary: (Last 24 hours) Intake/Output Summary (Last 24 hours) at 02/07/18 1207 Last data filed at 02/07/18 1140 Gross per 24 hour Intake 850 ml Output 3125 ml Net -2275 ml Stool Occurrence: 1 Oral Diet Order: Diabetic 2580-3982 Kcal/day (60 g Carb/meal, 30 g Carb/HS snack ) Last BM Date: 02/07/18 Lab: Results for orders placed or performed during the hospital encounter of (from the past 24 hour(s)) POC GLUCOSE Collection Time: 02/06/18 4:45 PM # # Low-High Glucose, POC 108 (H) 70 - 100 MG/DL POC GLUCOSE Collection Time: 02/06/18 8:42 PM # # Low-High Glucose, POC 140 (H) 70 - 100 MG/DL CBC CELLULAR THERAPEUTICS Collection Time: 02/07/18 5:16 AM # # Low-High White Blood Cells 9.2 4.5 - 11.0 K/UL RBC 2.55 (L) 4.0 - 5.0 M/UL Hemoglobin 6.6 (L) 12.0 - 15.0 GM/DL Hematocrit 20.3 (L) 36 - 45 % MCV 79.7 (L) 80 - 100 FL MCH 25.9 (L) 26 - 34 PG MCHC 32.5 32.0 - 36.0 G/DL RDW 20.1 (H) 11 - 15 % Platelet Count 527 (H) 150 - 400 K/UL MPV 6.9 (L) 7 - 11 FL PREALBUMIN Collection Time: 02/07/18 5:16 AM # # Low-High Prealbumin 11.0 (L) 17 - 34 MG/DL BASIC METABOLIC PANEL CELLULAR THERAPEUTICS Collection Time: 02/07/18 5:16 AM # # Low-High Sodium 140 137 - 147 MMOL/L Potassium 4.0 3.5 - 5.1 MMOL/L Chloride 104 98 - 110 MMOL/L CO2 29 21 - 30 MMOL/L Anion Gap 7 3 - 12 Glucose 79 70 - 100 MG/DL Blood Urea Nitrogen 15 7 - 25 MG/DL Creatinine 0.65 0.4 - 1.00 MG/DL Calcium 8.8 8.5 - 10.6 MG/DL eGFR Non >60 >60 mL/min eGFR >60 >60 mL/min POC GLUCOSE Collection Time: 02/07/18 7:04 AM # # Low-High Glucose, POC 94 70 - 100 MG/DL CBC Collection Time: 02/07/18 7:55 AM # # Low-High White Blood Cells 9.0 4.5 - 11.0 K/UL RBC 3.02 (L) 4.0 - 5.0 M/UL Hemoglobin 7.9 (L) 12.0 - 15.0 GM/DL Hematocrit 23.9 (L) 36 - 45 % MCV 79.2 (L) 80 - 100 FL MCH 26.0 26 - 34 PG MCHC 32.9 32.0 - 36.0 G/DL RDW 20.1 (H) 11 - 15 % Platelet Count 490 (H) 150 - 400 K/UL MPV 6.8 (L) 7 - 11 FL POC GLUCOSE Collection Time: 02/07/18 11:54 AM # # Low-High Glucose, POC 162 (H) 70 - 100 MG/DL Scheduled Meds: aspirin chewable tablet 81 mg 81 mg Oral QDAY buPROPion (WELLBUTRIN) tablet 100 mg 100 mg Oral TID busPIRone (BUSPAR) tablet 30 mg 30 mg Oral BID carbamide peroxide (DEBROX) 6.5 % otic solution 5 drop 5 drop Both Ears BID collagenase (SANTYL) topical ointment Topical QDAY docusate (COLACE) capsule 100 mg 100 mg Oral BID ferrous sulfate (FEOSOL, FEROSUL) tablet 325 mg 325 mg Oral TID w/ meals gabapentin (NEURONTIN) capsule 800 mg 800 mg Oral Q6H insulin aspart U-100 (NOVOLOG FLEXPEN) injection PEN 0-14 Units 0-14 Units Subcutaneous ACHS insulin aspart U-100 (NOVOLOG FLEXPEN) injection PEN 6 Units 6 Units Subcutaneous TID w/ meals insulin glargine (LANTUS SOLOSTAR, BASAGLAR) injection PEN 12 Units 12 Units Subcutaneous QHS lactobacillus rhamnosus GG (CULTURELLE) 15 billion cell capsule 1 capsule 1 capsule Oral BID w/meals levothyroxine (SYNTHROID) tablet 200 mcg 200 mcg Oral QDAY before breakfast lidocaine (LIDODERM) 5 % topical patch 2 patch 2 patch Topical QDAY meropenem (MERREM) IVP 500 mg 500 mg Intravenous Q6H* metFORMIN (GLUCOPHAGE) tablet 1,000 mg 1,000 mg Oral BID w/meals nortriptyline (PAMELOR) capsule 50 mg 50 mg Oral QHS oxyCODONE (ROXICODONE, OXY-IR) tablet 15 mg 15 mg Oral Once per day on Wed oxyCODONE SR (OXYCONTIN) tablet 10 mg 10 mg Oral BID pantoprazole DR (PROTONIX) tablet 40 mg 40 mg Oral QDAY(21) rivaroxaban (XARELTO) tablet 20 mg 20 mg Oral QDAY w/breakfast simvastatin (ZOCOR) tablet 20 mg 20 mg Oral QHS sitaGLIPtin (JANUVIA) tablet 100 mg 100 mg Oral QDAY sodium chloride PF 0.9% flush 20 mL 20 mL Intravenous FLUSH TID vancomycin (VANCOCIN) 1,750 mg in dextrose 5% (D5W) IVPB 1,750 mg Intravenous Q24H* vancomycin, pharmacy to manage 1 each Service Per Pharmacy Continuous Infusions: PRN and Respiratory Meds:acetaminophen Q6H PRN, alum/mag hydroxide/simeth Q6H PRN, calcium carbonate Q4H PRN, milk of magnesia (CONC) Q4H PRN, ondansetron ( ZOFRAN) IV Q6H PRN, oxyCODONE Q4H PRN, pancrelipase 20,000 Units/ sodium bicarbonate 650 mg(#) PRN (Catalogue Librarian from Rx) Physical Exam VS: BP 113/57 (BP Source: Arm, Left) | Pulse 110 | Temp 37.4 C (99.4 F) | Ht 160 cm (63") | Wt 90.5 kg (199 lb 8.3 oz) Comment: 1 pillow, 1sheet, 1 blanket, no wound vac pump on bed | LMP 01/14/2013 | SpO2 92% | BMI 35.34 kg/ m Gen: awake, alert, NAD HEENT: NCAT, MMM CV: RRR, no murmur Pulm: CTAB, no w/r Abd: nondistended, nontender Extremities: mild edema rle, s/p hemipelvectomy on left with dressings and wound vac in place. Moves extremities spontaneously and with purpose. Psych: Pleasent mood Neuro: face symmetric. Speech clear and fluent. Moves upper extremities spontaneously against gravity. Therapy Notes & Labs Reviewed. * Jennifer Diaz RN - 02/07/2018 12:00 PM CDT Formatting of this note may be different from the original. Wound Ostomy Nursing Consult Service NAME:Beata Kaiser :1965 AGE: 52 y.o. ADMISSION DATE: 01/14/2018 DAYS ADMITTED: LOS: 24 days Reason for Visit: wound VAC Assessment/Plan: Principal Problem: Left hip amputation status Active Problems: Chondrosarcoma (HCC) Acute blood loss as cause of postoperative anemia Depression Anxiety DM (diabetes mellitus) (HCC) 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 Chronic pain Post-op pain Bacteremia Amputated left leg (HCC) Candiduria Wounds (NOT for Pressure Injuries) 11/30/17 0853 Left Buttocks Surgical Incision (Active) 11/30/17 0853 Buttocks Wound Orientation: Left Wound Type: Surgical Incision Wound Type:: Wound Description (Comments): Carlos Manuel Rosales Drain, Sutures, xeroform, 4x4's, and tegaderm. Wound Base Assessment Gallardo;Necrotic tissue 02/07/2018 12:00 PM Surrounding Skin Assessment Dry;Intact 02/07/2018 12:00 PM Wound Site Closure None 02/07/2018 12:00 PM Wound Drainage Amount Small 02/07/2018 12:00 PM Wound Drainage Description Serous 02/07/2018 12:00 PM Wound Dressing Status Changed 02/07/2018 12:00 PM Wound Dressing and / or Treatment Hydrofera Blue Ready 02/07/2018 12:00 PM Wounds (NOT for Pressure Injuries) 12/14/17 1748 Left Abdomen Ulcer (not from pressure) (Active) 12/14/17 1748 Abdomen Wound Orientation: Left Wound Type: Ulcer (not from pressure) Wound Type:: Wound Description (Comments): Wound Base Assessment Moist;Yellow;Slough 02/07/2018 12:00 PM Surrounding Skin Assessment Intact 02/07/2018 12:00 PM Wound Site Closure Wound Adhesive Bandage 02/07/2018 12:00 PM Wound Drainage Amount Small 02/07/2018 12:00 PM Wound Drainage Description Serous 02/07/2018 12:00 PM Wound Dressing Status Changed 02/07/2018 12:00 PM Wound Dressing and / or Treatment Collagenase;Abdominal Pad 02/07/2018 12:00 PM Wounds (NOT for Pressure Injuries) 12/30/17 1002 Left;Anterior Surgical Incision stump (Active) 12/30/17 1002 Wound Orientation: Left;Anterior Wound Type: Surgical Incision Wound Type:: stump Wound Description (Comments): Suture, ceci, telfa and iodine, 4x4, and tegaderm Wound Base Assessment Gallardo;Necrotic tissue 02/07/2018 12:00 PM Surrounding Skin Assessment Pale 02/07/2018 12:00 PM Wound Site Closure [place] 02/07/2018 12:00 PM Wound Drainage Amount Small 02/07/2018 12:00 PM Wound Drainage Description Serous 02/07/2018 12:00 PM Wound Dressing Status Changed 02/07/2018 12:00 PM Wound Dressing and / or Treatment Hydrofera Blue Ready 02/07/2018 12:00 PM Wounds (NOT for Pressure Injuries) 01/10/18 1100 Hip Surgical Incision (Active) 01/10/18 1100 Hip Wound Orientation: Wound Type: Surgical Incision Wound Type:: Wound Description (Comments): XEROFORM, 4X4S, HYPAFIX, WOUND VAC Wound Base Assessment Moist;Red;Gallardo 02/07/2018 12:00 PM Surrounding Skin Assessment Other (Comment);Intact 02/07/2018 12:00 PM Wound Site Closure Wound Adhesive Bandage 02/07/2018 12:00 PM Wound Drainage Amount Moderate 02/07/2018 12:00 PM Wound Drainage Description Serous 02/07/2018 12:00 PM Wound Dressing Status Changed 02/07/2018 12:00 PM Wound Dressing and / or Treatment VAC sponge - black;VAC tx: Continuous;VAC @ - 125mm/Hg 02/07/2018 12:00 PM Procedure: Negative Wound Therapy Dressing Change Anesthesia Type: Not Applicable or None Provider(s) and Role: RN Negative Wound Pressure Device Type: KCI VAC Contact layer: None Number of sponges in the wound prior to dressing change: 6 Number of sponges removed from the wound: 6 Type of sponge: Black foam Number of sponges placed in the wound: 4 Jennifer Diaz RN Hydrofera blue placed over necrotic incision line and secure with hypafix tape. Wound VAC dressing connected to KCI VAC machine with settings of continuous - 125mmHg. Next dressing change planned Wed 02/09. Will continue to follow. Jennifer Diaz RN, BSN, CWON Wound/Ostomy Nursing Consult Service Office: [phone] Pager: [phone] Wound/Ostomy Team Pager (After Hours/Weekends): [phone] * Milly Clarke APRN - 02/07/2018 11:23 AM CDT Formatting of this note may be different from the original. Endocrinology Progress Note Name: Beata Kaiser Today's Date: 02/07/2018 Admission Date: 01/14/2018 LOS: 24 days Assessment/Plan: Principal Problem: Left hip amputation status Active Problems: Chondrosarcoma (HCC) Acute blood loss as cause of postoperative anemia Depression Anxiety DM (diabetes mellitus) (HCC) 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 Chronic pain Post-op pain Bacteremia Amputated left leg (HCC) Candiduria Assessment: 1. DM type 2 with stress hyperglycemia 2. Hypoglycemia A1c6.5, controlled CAMP TENDER regimen: Metformin 1000mg BID, [id number] mg daily Hypoglycemic episodes on this regimen: None and not checking blood sugars at home Follows up with for diabetes management:Primary care physician at [facility] Diabetic-complications assessment: Retinopathy: None Peripheral neuropathy: Yes on treatment Autonomic neuropathy:None Nephropathy: None Macrovascular complications:None Risk factor assessment: Last lipid profile - None on file On ACEi/ARB: Yes On Statin: yes 3. 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 CAMP TENDER 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 daily TSH 2.1 this admission Forgets to take her levothyroxine sometime 4. Enteral Nutrition- stopped 02/02/18 5. Left leg amputation Wound Vac 6. Hyperlipidemia On lovastatin 7. Chondorsarcoma Pelvis s/p hemipelvectomy 8. Obesity Class III Recommendations: BG within target goals today Continue current insulin regimen: Lantus 12 units, Novolog 6 units + MDCF with meals, will continue to monitor closely for need to decrease further Increase Metformin 1000 mg BID Continue Januvia 100mg daily Continue LT4 therapy Increase to 200mcg on 01.25.2018 due to continued elevation of TSH / low range normal FT4 Repeat TSH testing in 6 weeks, March 08, 2018 On statin therapy Pt discussed with Dr. Castro Subjective Beata Kaiser is a 52 y.o. female. Patient having wound dressing changed by Wound, RN and Primary RN. Reports tolerating most meals, once this weekend was unable to finish a meal and requested a Boost. Pt appears better this morning than last week. Continues hyperbaric therapy in the afternoons. History of Present Illness Beata Kaiser is a 52 y.o. S/p left hemipelvectomy 12/13/17 DM2 with stress hyperglycemia HgbA1C 6.5%. CAMP TENDER meds: Metformin + Jardiance / PCP in [place], [place] Review of Systems: Denies chest pain/ sob/ nausea/ vomiting/ abd cramping/ diarrhea Has needed stool softeners Medications Scheduled Meds: aspirin chewable tablet 81 mg 81 mg Oral QDAY buPROPion (WELLBUTRIN) tablet 100 mg 100 mg Oral TID busPIRone (BUSPAR) tablet 30 mg 30 mg Oral BID carbamide peroxide (DEBROX) 6.5 % otic solution 5 drop 5 drop Both Ears BID collagenase (SANTYL) topical ointment Topical QDAY docusate (COLACE) capsule 100 mg 100 mg Oral BID ferrous sulfate (FEOSOL, FEROSUL) tablet 325 mg 325 mg Oral TID w/ meals gabapentin (NEURONTIN) capsule 800 mg 800 mg Oral Q6H insulin aspart U-100 (NOVOLOG FLEXPEN) injection PEN 0-14 Units 0-14 Units Subcutaneous ACHS insulin aspart U-100 (NOVOLOG FLEXPEN) injection PEN 6 Units 6 Units Subcutaneous TID w/ meals insulin glargine (LANTUS SOLOSTAR, BASAGLAR) injection PEN 12 Units 12 Units Subcutaneous QHS lactobacillus rhamnosus GG (CULTURELLE) 15 billion cell capsule 1 capsule 1 capsule Oral BID w/meals levothyroxine (SYNTHROID) tablet 200 mcg 200 mcg Oral QDAY before breakfast lidocaine (LIDODERM) 5 % topical patch 2 patch 2 patch Topical QDAY meropenem (MERREM) IVP 500 mg 500 mg Intravenous Q6H* metFORMIN (GLUCOPHAGE) tablet 1,000 mg 1,000 mg Oral BID w/meals nortriptyline (PAMELOR) capsule 50 mg 50 mg Oral QHS oxyCODONE (ROXICODONE, OXY-IR) tablet 15 mg 15 mg Oral Once per day on Wed oxyCODONE SR (OXYCONTIN) tablet 10 mg 10 [address] Oral BID pantop[address]ole DR (PROTONIX) tablet 40 mg 40 mg Oral QDAY(21) rivaroxaban (XARELTO) tablet 20 mg 20 mg Oral QDAY w/breakfast simvastatin (ZOCOR) tablet 20 mg 20 mg Oral QHS sitaGLIPtin (JANUVIA) tablet 100 mg 100 mg Oral QDAY sodium chloride PF 0.9% flush 20 mL 20 mL Intravenous FLUSH TID vancomycin (VANCOCIN) 1,750 mg in dextrose 5% (D5W) IVPB 1,750 mg Intravenous Q24H* vancomycin, pharmacy to manage 1 each Service Per Pharmacy Continuous Infusions: PRN and Respiratory Meds:acetaminophen Q6H PRN, alum/mag hydroxide/simeth Q6H PRN, calcium carbonate Q4H PRN, milk of magnesia (CONC) Q4H PRN, ondansetron ( ZOFRAN) IV Q6H PRN, oxyCODONE Q4H PRN, pancrelipase 20,000 Units/ sodium bicarbonate 650 mg(#) PRN (Catalogue Librarian from Rx) Objective: Vital Signs: Last Filed Vital Signs: 24 Hour Range BP: 113/57 (02/08 400) Temp: 37.4 C (99.4 F) (02/08 400) Pulse: 110 (02/08 400) Respirations: 18 PER MINUTE (02/08 400) SpO2: 92 % (02/08 400) O2 Delivery: None (Room Air) (02/08 400) BP: (102-141)/(54-68) Temp: [36.6 C (97.8 F)-37.6 C (99.6 F)] Pulse: [107-126] Respirations: [18 PER MINUTE-20 PER MINUTE] SpO2: [92 %-100 %] O2 Delivery: None (Room Air) Intensity Pain Scale 0-10 (Pain 1): 10 (02/07/18 1035) Vitals: 02/06/18 0400 02/07/18 0400 02/07/18 0710 Weight: 99.2 kg (218 lb 11.1 oz) 83 kg (182 lb 15.7 oz) 90.5 kg (199 lb 8.3 oz) Intake/Output Summary: (Last 24 hours) Intake/Output Summary (Last 24 hours) at 02/07/18 1123 Last data filed at 02/07/18 0947 Gross per 24 hour Intake 910 ml Output 3125 ml Net -2215 ml Stool Occurrence: 1 Physical Exam General: Alert, cooperative, appears tired, no distress, appears stated age Eyes: Conjunctivae/corneas clear. ENT: Moist mucous membranes Lungs: Breathing comfortably on RA Extremities: Left jamil-pelvectomy TECHNICAL SOLUTION ARCHITECT: Nonfocal, moves all extremities Lab Review General Chemistry: Lab Results Component Value Date NA 140 02/07/2018 K 4.0 02/07/2018 CL 104 02/07/2018 GAP 7 02/07/2018 BUN 15 02/07/2018 CR 0.65 02/07/2018 GLU 79 02/07/2018 CA 8.8 02/07/2018 ALBUMIN 2.3 02/04/2018 LACTIC 1.4 01/21/2018 OBSCA 1.07 12/19/2017 MG 1.8 01/03/2018 TOTBILI 0.2 02/04/2018 , Endocrine: Lab Results Component Value Date TSH 10.130 01/25/2018 , HgbA1C: Lab Results Component Value Date HGBA1C 6.5 12/28/2017 and Lipid Profile: Lab Results Component Value Date TRIG 254 01/13/2018 Glucose, POC Date/Time Value Ref Range Status 02/07/2018 0704 94 70 - 100 MG/DL Final 02/06/2018 2042 140 (H) 70 - 100 MG/DL Final 02/06/2018 1645 108 (H) 70 - 100 MG/DL Final 02/06/2018 1139 130 (H) 70 - 100 MG/DL Final 02/06/2018 0724 82 70 - 100 MG/DL Final 02/05/2018 2101 95 70 - 100 MG/DL Final 02/05/2018 1653 123 (H) 70 - 100 MG/DL Final 02/05/2018 1226 122 (H) 70 - 100 MG/DL Final Point of Care Testing (Last 24 hours) Glucose: 79 (02/07/18 0516) POC Glucose (Download): 94 (02/07/18 0704) Radiology and other Diagnostics Review: No pertinent radiology. Thank you for the opportunity to participate in this pt's care Please page with any questions or concerns Milly Clarke APRN Pager [phone] Office: [phone] * Ivan Barrera RN - 02/07/2018 7:13 AM CDT Formatting of this note may be different from the original. Heart Failure Nursing Progress Note Admission Date: 01/14/2018 LOS: 24 days Admission Weight: 99 kg (218 lb 4.8 oz) Most recent weights (inpatient): Vitals: 02/06/18 0400 02/07/18 0400 02/07/18 0710 Weight: 99.2 kg (218 lb 11.1 oz) 83 kg (182 lb 15.7 oz) 90.5 kg (199 lb 8.3 oz) Weight change from previous day: -8.7kg Fluid restriction ordered: No Intake/Output Summary: (Last 24 hours) Intake/Output Summary (Last 24 hours) at 02/07/18 0713 Last data filed at 02/07/18 0634 Gross per 24 hour Intake 670 ml Output 3875 ml Net -3205 ml Is patient incontinent No Anticipated discharge date: 02/28/18 Discharge goals: "Get stronger to get back home". Daily Assessment of Patient Stated Goals: Short Term Goal Identified by patient (Short Term=during hospitalization): "Be able to take full care of myself" * Judith Gandhi MD - 02/06/2018 8:05 AM CDT Formatting of this note may be different from the original. Physical Medicine & Rehabilitation Progress Note Today's Date: 02/06/2018 Admission Date: 01/14/2018 LOS: 23 days Insurance: [facility] Principal Problem: Left hip amputation status Active Problems: Chondrosarcoma (HCC) Acute blood loss as cause of postoperative anemia Depression Anxiety DM (diabetes mellitus) (HCC) 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 Chronic pain Post-op pain Bacteremia Amputated left leg (HCC) Candiduria Assessment/Plan: Beata Lema a 52 y.o.female[facility] the following issues : 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 Patient will need a modified schedule of 15 hours over 7 days to accommodate HBOT schedule. Goals: household mobility at wheelchair level min A Tentative discharge date: 02/28/18 Recommended therapy after discharge: home health OT/PT Recommended equipment: Hospital bed, wheelchair/cushion, slideboard, ramp - Patient requires hospital bed at discharge. Patient requires positioning of the body in ways not feasible with ordinary beds to in order to alleviate pain. Patient requires frequent repositioning of the body and/or has an immediate need for change in body position. Daily Functional Update: Transfers Device Sit to Stand Transfer: Assistive Device: Sliding Board (02/05/2018 1:30 PM) No Data Recorded Gait Device Assist Required Distance Gait: Assistive Device: IV Pole (12/01/2017 11:00 AM) No Data Recorded Gait Distance: 400 feet (12/01/2017 11:00 AM) Toileting Assist Required Equipment Toilet Transfer Toileting Assist: Total Assist (02/05/2018 9:30 AM) No Data Recorded No Data Recorded Dressing Lower Body LE Dressing Assist: Total Assist (02/05/2018 1:30 PM) Chrondrosarcoma s/p hemipelvectomy and hemisacrectomy Lymphedema wound and residual limb >wound vac in place. Changes M/W/F by wound vac team. PO 15mg oxycodone MWF for [place] changes + lidocaine into sponge during acute hospitalization - weaned off IV pain meds >Change dressings prn with dry sterile gauze and hypafix tape >vitamin A &D for labia wound, collagenase for left lower abdomen wound healing >Per plastic surgery note 01/24 not recommending further surgical intervention at this time >01/31 Pt had trial of HBOT which she tolerated well >Plan on 20 treatment of HBOT M-F in late afternoon Post-op pain in setting of chronic pain Phantom limb pain, neuropathic pain >Tylenol, oxycontin 10mg BID and oxycodone 20mg q3h prn. Lidoderm patch prn. > Continue nortriptyline 50mg QHS (increased 01/27) > Continue gabapentin 800mg Q6h s/p diverting colostomy - Stool saturating wound. Diverting colostomy done 12/30 >wound/ostomy consulted, working on education with nursing Bladder injury, recent repair - bladder and urethral injuries during hemipelvectomy on 12/14/17 - underwent cystoscopy with left ureteral stent insertion, Bladder neck repair, Urethroplasty and repair of urethral injury, Vaginal closure >continue melchor catheter > Urology f/u after rehab discharge Chest lesions (metastases?) - 11/26/17 CT: few small pulmonary nodules. >plan is to resect the masses in the chest later >CT chest scheduled for 02/08 with f/u with CTS surgery - may need to reschedule GBS bacteremia w/ sepsis due to left hip wound - Fever and leukocytosis began 12/20/17, Bcx 1/2 positive for GBS on 12/23 -Fever 01/21 - blood cx and urine cx NGTD >Completed course of abx 01/23 ertapenem > Multiple fevers 01/26 in pm, started Vanc/Meropenem and obtained blood cx x2 and UA/reflex cx - 09/21 bcx contaminated, rest NGTD > Repeat blood cx's 03/03 NGTD > Duration of IV abx TBD DVT - 11/30/17 IVC filter for DVT within the external iliac vein >cont Xarelto ABLA - Transfusion 01/15 and 01/28 1U PRBC - monitor labs T2DM - A1c 6.5%, controlled - CAMP TENDER regimen: Metformin thousand milligrams twice a day, [id number] mg daily >Continue with Lantus 20 units QHS, novolog 14u postmeal, MDCF 5x per day 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 - CAMP TENDER 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 daily - TSH 2.1 this admission >levothyroxine increased 200 mcg on 01/26 >She will need repeat thyroid function tests in 6-8 weeks (~March 08) Major depressive disorder, recurrent, moderate CLAUDIA Adjustment disorder with mixed anxiety and depressed mood > continue CAMP TENDER Wellbutrin and buspar, started on nortriptyline this admission Nutrition - 01/31 albumin 2.4, Prealbumin 10.0, recheck 02/07 -Pt is currently meeting caloric and protein needs > weekly prealbumin and albumin - remains low > D/c corpak 02/02 > Continue current diet with protein supplementation HLD: holding CAMP TENDER statin Insomnia: nortriptyline 50mg qhs DVT Prophylaxis:Xarelto, will discharge on it Judith Gandhi MD Wednesday: changed gabapentin timing from QID hours from q6h as she reports more burning leg pain overnight. RN called Ortho on Wednesday to reinforce wound vac dressing and it is still intact. Wednesday: No changes. Subjective Patient seen lying in bed this AM. Says that gabapentin timing improved her pain. RN says that ortho came yesterday to reinforce her dressing with increased drainage at woundvac. No other acute complaints. Objective Vital Signs: Last Filed Vital Signs: 24 Hour Range BP: 127/66 (02/07 400) Temp: 37.1 C (98.8 F) (02/07 400) Pulse: 116 (02/07 400) Respirations: 18 PER MINUTE (02/07 400) SpO2: 92 % (02/07 400) O2 Delivery: None (Room Air) (02/07 400) BP: (115-150)/(65-73) Temp: [36.6 C (97.9 F)-37.1 C (98.8 F)] Pulse: [85-118] Respirations: [18 PER MINUTE] SpO2: [92 %-98 %] O2 Delivery: None (Room Air) Intensity Pain Scale 0-10 (Pain 1): 4 (02/05/18 2145) Vitals: 02/04/18 0711 02/05/18 0500 02/06/18 0400 Weight: 104 kg (229 lb 4.5 oz) 102.1 kg (225 lb 1.4 oz) 99.2 kg (218 lb 11.1 oz ) Intake/Output Summary: (Last 24 hours) Intake/Output Summary (Last 24 hours) at 02/06/18 0805 Last data filed at 02/06/18 0700 Gross per 24 hour Intake 560 ml Output 3500 ml Net -2940 ml Stool Occurrence: 1 Oral Diet Order: Diabetic 2424-3720 Kcal/day (60 g Carb/meal, 30 g Carb/HS snack ) Last BM Date: 02/05/18 Lab: Results for orders placed or performed during the hospital encounter of (from the past 24 hour(s)) POC GLUCOSE Collection Time: 02/05/18 12:26 PM # # Low-High Glucose, POC 122 (H) 70 - 100 MG/DL POC GLUCOSE Collection Time: 02/05/18 4:53 PM # # Low-High Glucose, POC 123 (H) 70 - 100 MG/DL POC GLUCOSE Collection Time: 02/05/18 9:01 PM # # Low-High Glucose, POC 95 70 - 100 MG/DL POC GLUCOSE Collection Time: 02/06/18 7:24 AM # # Low-High Glucose, POC 82 70 - 100 MG/DL Scheduled Meds: aspirin chewable tablet 81 mg 81 mg Oral QDAY buPROPion (WELLBUTRIN) tablet 100 mg 100 mg Oral TID busPIRone (BUSPAR) tablet 30 mg 30 mg Oral BID carbamide peroxide (DEBROX) 6.5 % otic solution 5 drop 5 drop Both Ears BID collagenase (SANTYL) topical ointment Topical QDAY docusate (COLACE) capsule 100 mg 100 mg Oral BID ferrous sulfate (FEOSOL, FEROSUL) tablet 325 mg 325 mg Oral TID w/ meals gabapentin (NEURONTIN) capsule 800 mg 800 mg Oral Q6H insulin aspart U-100 (NOVOLOG FLEXPEN) injection PEN 0-14 Units 0-14 Units Subcutaneous ACHS insulin aspart U-100 (NOVOLOG FLEXPEN) injection PEN 6 Units 6 Units Subcutaneous TID w/ meals insulin glargine (LANTUS SOLOSTAR, BASAGLAR) injection PEN 12 Units 12 Units Subcutaneous QHS lactobacillus rhamnosus GG (CULTURELLE) 15 billion cell capsule 1 capsule 1 capsule Oral BID w/meals levothyroxine (SYNTHROID) tablet 200 mcg 200 mcg Oral QDAY before breakfast lidocaine (LIDODERM) 5 % topical patch 2 patch 2 patch Topical QDAY meropenem (MERREM) IVP 500 mg 500 mg Intravenous Q6H* metFORMIN (GLUCOPHAGE) tablet 500 mg 500 mg Oral BID w/meals nortriptyline (PAMELOR) capsule 50 mg 50 mg Oral QHS oxyCODONE (ROXICODONE, OXY-IR) tablet 15 mg 15 mg Oral Once per day on Wed oxyCODONE SR (OXYCONTIN) tablet 10 mg 10 mg Oral BID pantop[address]ole DR (PROTONIX) tablet 40 mg 40 mg Oral QDAY(21) rivaroxaban (XARELTO) tablet 20 mg 20 mg Oral QDAY w/breakfast simvastatin (ZOCOR) tablet 20 mg 20 mg Oral QHS sitaGLIPtin (JANUVIA) tablet 100 mg 100 mg Oral QDAY sodium chloride PF 0.9% flush 20 mL 20 mL Intravenous FLUSH TID vancomycin (VANCOCIN) 1,750 mg in dextrose 5% (D5W) IVPB 1,750 mg Intravenous Q24H* vancomycin, pharmacy to manage 1 each Service Per Pharmacy Continuous Infusions: PRN and Respiratory Meds:acetaminophen Q6H PRN, alum/mag hydroxide/simeth Q6H PRN, calcium carbonate Q4H PRN, milk of magnesia (CONC) Q4H PRN, ondansetron ( ZOFRAN) IV Q6H PRN, oxyCODONE Q4H PRN, pancrelipase 20,000 Units/ sodium bicarbonate 650 mg(#) PRN (Catalogue Librarian from Rx) Physical Exam VS: BP 127/66 (BP Source: Arm, Left) | Pulse 116 | Temp 37.1 C (98.8 F) | Ht 160 cm (63") | Wt 99.2 kg (218 lb 11.1 oz) | LMP 01/14/2013 | SpO2 92% | BMI 38.74 kg/m Gen: awake, alert, NAD HEENT: NCAT, MMM CV: RRR, no murmur Pulm: CTAB, no w/r Abd: nondistended, nontender Extremities: mild edema rle, s/p hemipelvectomy on left with dressings and wound vac in place. Moves extremities spontaneously and with purpose. Psych: Pleasent mood Neuro: face symmetric. Speech clear and fluent. Moves upper extremities spontaneously against gravity. Therapy Notes & Labs Reviewed. Associated attestation - Merced Orozco MD - 02/06/2018 7:24 PM CDT Formatting of this note may be different from the original. ATTESTATION I personally performed the banuelos portions of the E/M visit, discussed case with resident and concur with resident documentation of history, physical exam, assessment, and treatment plan unless otherwise noted. Patient continues to report sub-optimal pain control at times. Medications are effective but timing is not ideal. Ortho saw patient yesterday to reinforce wound vac. -Exam: wound vac dressing C/D/I -Lab and vitals reviewed and stable. Tachycardia stable. -Adjusting Neurontin administration times with nursing and pharmacy. -Patient remains medically and functionally stable for continued rehabilitation participation. Staff name: Merced Orozco MD Date: 02/06/2018 * Marco Payne MD - 02/06/2018 7:29 AM CDT Formatting of this note may be different from the original. Endocrine chart rounds Recent Labs 02/04/18 1515 02/04/18 1650 02/04/18 2119 02/05/18 0725 02/05/18 1226 02/05/18 1653 02/05/18 2101 02/06/18 0724 GLUPOC 102* 111* 155* 101* 122* 123* 95 82 The current diabetes regimen over the last 24 hours Lantus 16 unit HS Novolog 8 units with meals Metformin 500 mg BID, will titrate to 1000 mg BID next week Januvia 100mg daily Given the fasting glucose today of 82 and pre meal glucose values yesterday that are lower I have reduced the scheduled insulin as follows Lantus 12 units Novolog 6 units with meals Novolog mid dose correction but not starting until 180 mg/dL Metformin 500 mg BID, will titrate to 1000 mg BID next week Januvia 100mg daily * Marco Payne MD - 02/05/2018 11:32 AM CDT Formatting of this note may be different from the original. Endocrine glucose monitoring Chart note Recent Labs 02/03/18 2126 02/04/18 0711 02/04/18 1200 02/04/18 1312 02/04/18 1515 02/04/18 1650 02/04/18 2119 02/05/18 0725 GLUPOC 155* 118* 176* 160* 102* 111* 155* 101* Current diabetes regimen Metformin 500 mg BID, will titrate to 1000 mg BID next week Januvia 100mg daily Novolog 10 units + MDCF with meals, will monitor closely for need to decrease as Januvia reaches steady state Lantus 18 units qhs Glucose values at or near goal With AM glucose today of 102 we plan further insulin reduction New regimen as follows Lantus 16 unit HS Novolog 8 units with meals No change in metformin or januvia. We will continue to follow * Darlene Garcia RN - 02/05/2018 11:00 AM CDT Wound dressing started leaking after am OT session. Pt assisted back to bed, and dressing assess for leaking. Chux pad in w/c had a mod amt of serosanguinous drainage. Canister emptiedAttempted to reinforce over gluteal cleft and where vac dressing tubing attached for 45 minutes, but no success in stopping the leaking. call center professional ortho resident paged to help redo the wound vac dressing. * Gosia Wayne, FREDO - 02/05/2018 10:38 AM CDT Formatting of this note may be different from the original. Pharmacy Vancomycin Note Subjective: Beata Kaiser is a 52 y.o. female being treated for skin and soft tissue infection. Objective: Current Vancomycin Orders Medication Dose Route Frequency vancomycin (VANCOCIN) 1,750 mg in dextrose 5% (D5W) IVPB 1,750 mg Intravenous Q24H* vancomycin, pharmacy to manage 1 each Service Per Pharmacy Day of Vancomycin therapy: 5 Additional Abx: Meropenem White Blood Cells Date/Time Value Ref Range Status 02/04/2018 0550 5.0 4.5 - 11.0 K/UL Final Creatinine Date/Time Value Ref Range Status 02/05/2018 0545 0.53 0.4 - 1.00 MG/DL Final 02/04/2018 0550 0.59 0.4 - 1.00 MG/DL Final 02/03/2018 1225 0.59 0.4 - 1.00 MG/DL Final Blood Urea Nitrogen Date/Time Value Ref Range Status 02/05/2018 0545 15 7 - 25 MG/DL Final Estimated CrCl: ~ 100 mL/min Actual Weight: 102.1 kg (225 lb 1.4 oz) Drug Levels: Vancomycin Trough Date/Time Value Ref Range Status 02/04/2018 2315 18.7 10.0 - 20.0 MCG/ML Final Assessment: Target levels for this patient: 10-15mcg/ml Evaluation of level(s): Vancomycin trough is showing accumulation and is above desired goal. With accumulation and possible long-term therapy in this 52 year old it would be reasonable to try Q24 interval Plan: 1. Change to Vancomycin 1750mg IV Q24hr 2. Next scheduled level(s): prior to 3rd or 4th new dose depending on clinical status and renal function 3. Pharmacy will continue to monitor and adjust therapy as needed. Gosia Wayne, PIYUSHD 02/05/2018 * Judith Gandhi MD - 02/05/2018 7:35 AM CDT Formatting of this note may be different from the original. Physical Medicine & Rehabilitation Progress Note Today's Date: 02/05/2018 Admission Date: 01/14/2018 LOS: 22 days Insurance: [facility] Principal Problem: Left hip amputation status Active Problems: Chondrosarcoma (HCC) Acute blood loss as cause of postoperative anemia Depression Anxiety DM (diabetes mellitus) (HCC) 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 Chronic pain Post-op pain Bacteremia Amputated left leg (HCC) Candiduria Assessment/Plan: Beata Lema a 52 y.o.female[facility] the following issues : 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 Patient will need a modified schedule of 15 hours over 7 days to accommodate HBOT schedule. Goals: household mobility at wheelchair level min A Tentative discharge date: 02/28/18 Recommended therapy after discharge: home health OT/PT Recommended equipment: Hospital bed, wheelchair/cushion, slideboard, ramp - Patient requires hospital bed at discharge. Patient requires positioning of the body in ways not feasible with ordinary beds to in order to alleviate pain. Patient requires frequent repositioning of the body and/or has an immediate need for change in body position. Daily Functional Update: Transfers Device Sit to Stand Transfer: Assistive Device: Sliding Board (02/03/2018 10:01 AM) No Data Recorded Gait Device Assist Required Distance Gait: Assistive Device: IV Pole (12/01/2017 11:00 AM) No Data Recorded Gait Distance: 400 feet (12/01/2017 11:00 AM) Toileting Assist Required Equipment Toilet Transfer Toileting Assist: Total Assist (01/06/2018 1:00 PM) No Data Recorded No Data Recorded Dressing Lower Body LE Dressing Assist: Total Assist (02/03/2018 8:45 AM) Chrondrosarcoma s/p hemipelvectomy and hemisacrectomy Lymphedema wound and residual limb >wound vac in place. Changes M/W/F by wound vac team. PO 15mg oxycodone MWF for [place] changes + lidocaine into sponge during acute hospitalization - weaned off IV pain meds >Change dressings prn with dry sterile gauze and hypafix tape >vitamin A &D for labia wound, collagenase for left lower abdomen wound healing >Per plastic surgery note 01/24 not recommending further surgical intervention at this time >01/31 Pt had trial of HBOT which she tolerated well >Plan on 20 treatment of HBOT M-F in late afternoon Post-op pain in setting of chronic pain Phantom limb pain, neuropathic pain >Tylenol, oxycontin 10mg BID and oxycodone 20mg q3h prn. Lidoderm patch prn. > Continue nortriptyline 50mg QHS (increased 01/27) > Continue gabapentin 800mg Q6h s/p diverting colostomy - Stool saturating wound. Diverting colostomy done 12/30 >wound/ostomy consulted, working on education with nursing Bladder injury, recent repair - bladder and urethral injuries during hemipelvectomy on 12/14/17 - underwent cystoscopy with left ureteral stent insertion, Bladder neck repair, Urethroplasty and repair of urethral injury, Vaginal closure >continue melchor catheter > Urology f/u after rehab discharge Chest lesions (metastases?) - 11/26/17 CT: few small pulmonary nodules. >plan is to resect the masses in the chest later >CT chest scheduled for 02/08 with f/u with CTS surgery - may need to reschedule GBS bacteremia w/ sepsis due to left hip wound - Fever and leukocytosis began 12/20/17, Bcx 1/2 positive for GBS on 12/23 -Fever 01/21 - blood cx and urine cx NGTD >Completed course of abx 01/23 ertapenem > Multiple fevers 01/26 in pm, started Vanc/Meropenem and obtained blood cx x2 and UA/reflex cx - 09/21 bcx contaminated, rest NGTD > Repeat blood cx's 03/03 NGTD > Duration of IV abx TBD DVT - 11/30/17 IVC filter for DVT within the external iliac vein >cont Xarelto ABLA - Transfusion 01/15 and 01/28 1U PRBC - monitor labs T2DM - A1c 6.5%, controlled - CAMP TENDER regimen: Metformin thousand milligrams twice a day, [id number] mg daily >Continue with Lantus 20 units QHS, novolog 14u postmeal, MDCF 5x per day 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 - CAMP TENDER 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 daily - TSH 2.1 this admission >levothyroxine increased 200 mcg on 01/26 >She will need repeat thyroid function tests in 6-8 weeks (~March 08) Major depressive disorder, recurrent, moderate CLAUDIA Adjustment disorder with mixed anxiety and depressed mood > continue CAMP TENDER Wellbutrin and buspar, started on nortriptyline this admission Nutrition - 01/31 albumin 2.4, Prealbumin 10.0, recheck 02/07 -Pt is currently meeting caloric and protein needs > weekly prealbumin and albumin - remains low > D/c corpak 02/02 > Continue current diet with protein supplementation HLD: holding CAMP TENDER statin Insomnia: nortriptyline 50mg qhs DVT Prophylaxis:Xarelto, will discharge on it Judith Gandhi MD Wednesday: changed gabapentin timing from q6 hours from QID as she reports more burning leg pain overnight. Subjective Patient seen lying in bed today enjoying her breakfast. Reports increased burning pain overnight. Agreeable to changing the timing of her gabapentin. No other acute complaints. No other overnight events. Objective Vital Signs: Last Filed Vital Signs: 24 Hour Range BP: 116/62 (02/06 428) Temp: 36.9 C (98.5 F) (02/06 428) Pulse: 114 (02/06 428) Respirations: 20 PER MINUTE (02/06 428) SpO2: 93 % (02/06 428) O2 Delivery: None (Room Air) (02/06 428) BP: (110-128)/(54-65) Temp: [36.5 C (97.7 F)-37.1 C (98.7 F)] Pulse: [110-120] Respirations: [18 PER MINUTE-20 PER MINUTE] SpO2: [92 %-100 %] O2 Delivery: None (Room Air) Intensity Pain Scale 0-10 (Pain 1): 6 (02/05/18440) Vitals: 02/03/18 0400 02/04/18 0711 02/05/18 0500 Weight: 91.7 kg (202 lb 2.6 oz) 104 kg (229 lb 4.5 oz) 102.1 kg (225 lb 1.4 oz) Intake/Output Summary: (Last 24 hours) Intake/Output Summary (Last 24 hours) at 02/05/18 0735 Last data filed at 02/05/18 0200 Gross per 24 hour Intake 0 ml Output 3675 ml Net -3675 ml Stool Occurrence: 1 Oral Diet Order: Diabetic [id number] Kcal/day (60 g Carb/meal, 30 g Carb/HS snack ) Last BM Date: 02/02/18 Lab: Results for orders placed or performed during the hospital encounter of (from the past 24 hour(s)) POC GLUCOSE Collection Time: 02/04/18 12:00 PM # # Low-High Glucose, POC 176 (H) 70 - 100 MG/DL POC GLUCOSE Collection Time: 02/04/18 1:12 PM # # Low-High Glucose, POC 160 (H) 70 - 100 MG/DL POC GLUCOSE Collection Time: 02/04/18 3:15 PM # # Low-High Glucose, POC 102 (H) 70 - 100 MG/DL POC GLUCOSE Collection Time: 02/04/18 4:50 PM # # Low-High Glucose, POC 111 (H) 70 - 100 MG/DL POC GLUCOSE Collection Time: 02/04/18 9:19 PM # # Low-High Glucose, POC 155 (H) 70 - 100 MG/DL VANCOMYCIN TROUGH Collection Time: 02/04/18 11:15 PM # # Low-High Vancomycin Trough 18.7 10.0 - 20.0 MCG/ML POC GLUCOSE Collection Time: 02/05/18 7:25 AM # # Low-High Glucose, POC 101 (H) 70 - 100 MG/DL Scheduled Meds: aspirin chewable tablet 81 mg 81 mg Oral QDAY buPROPion (WELLBUTRIN) tablet 100 mg 100 mg Oral TID busPIRone (BUSPAR) tablet 30 mg 30 mg Oral BID carbamide peroxide (DEBROX) 6.5 % otic solution 5 drop 5 drop Both Ears BID collagenase (SANTYL) topical ointment Topical QDAY docusate (COLACE) capsule 100 mg 100 mg Oral BID ferrous sulfate (FEOSOL, FEROSUL) tablet 325 mg 325 mg Oral TID w/ meals gabapentin (NEURONTIN) capsule 800 mg 800 mg Oral QID insulin aspart U-100 (NOVOLOG FLEXPEN) injection PEN 0-14 Units 0-14 Units Subcutaneous ACHS insulin aspart U-100 (NOVOLOG FLEXPEN) injection PEN 10 Units 10 Units Subcutaneous TID w/ meals insulin glargine (LANTUS SOLOSTAR, BASAGLAR) injection PEN 18 Units 18 Units Subcutaneous QHS lactobacillus rhamnosus GG (CULTURELLE) 15 billion cell capsule 1 capsule 1 capsule Oral BID w/meals levothyroxine (SYNTHROID) tablet 200 mcg 200 mcg Oral QDAY before breakfast lidocaine (LIDODERM) 5 % topical patch 2 patch 2 patch Topical QDAY meropenem (MERREM) IVP 500 mg 500 mg Intravenous Q6H* metFORMIN (GLUCOPHAGE) tablet 500 mg 500 mg Oral BID w/meals nortriptyline (PAMELOR) capsule 50 mg 50 mg Oral QHS oxyCODONE (ROXICODONE, OXY-IR) tablet 15 mg 15 mg Oral Once per day on Wed oxyCODONE SR (OXYCONTIN) tablet 10 mg 10 mg Oral BID pantoprazole DR (PROTONIX) tablet 40 mg 40 mg Oral QDAY(21) rivaroxaban (XARELTO) tablet 20 mg 20 mg Oral QDAY w/breakfast simvastatin (ZOCOR) tablet 20 mg 20 mg Oral QHS sitaGLIPtin (JANUVIA) tablet 100 mg 100 mg Oral QDAY sodium chloride PF 0.9% flush 20 mL 20 mL Intravenous FLUSH TID vancomycin (VANCOCIN) 1,250 mg in dextrose 5% (D5W) IVPB 1,250 mg Intravenous Q12H* vancomycin, pharmacy to manage 1 each Service Per Pharmacy Continuous Infusions: PRN and Respiratory Meds:acetaminophen Q6H PRN, alum/mag hydroxide/simeth Q6H PRN, calcium carbonate Q4H PRN, milk of magnesia (CONC) Q4H PRN, ondansetron ( ZOFRAN) IV Q6H PRN, oxyCODONE Q4H PRN, pancrelipase 20,000 Units/ sodium bicarbonate 650 mg(#) PRN (Catalogue Librarian from Rx) Physical Exam VS: BP 116/62 (BP Source: Arm, Left) | Pulse 114 | Temp 36.9 C (98.5 F) | Ht 160 cm (63") | Wt 102.1 kg (225 lb 1.4 oz) | LMP 01/14/2013 | SpO2 93% | BMI 39.87 kg/m Gen: awake, alert, NAD HEENT: NCAT, MMM CV: RRR, no murmur Pulm: CTAB, no w/r Abd: nondistended, nontender Extremities: mild edema rle, s/p hemipelvectomy on left with dressings and wound vac in place. Moves extremities spontaneously and with purpose. Psych: Pleasent mood Neuro: face symmetric. Speech clear and fluent. Therapy Notes & Labs Reviewed. Associated attestation - Merced Orozco MD - 02/05/2018 5:50 PM CDT Formatting of this note may be different from the original. ATTESTATION I personally performed the banuelos portions of the E/M visit, discussed case with resident and concur with resident documentation of history, physical exam, assessment, and treatment plan unless otherwise noted. Patient reports that Neurontin wears off overnight. Appreciate endocrine follow -up and noted adjustments in insulin regimen. -Exam: s/p hemipelvectomy with wound vac in place -Lab and vitals reviewed and stable. -Will adjust the timing of Neurontin. -Patient remains medically and functionally stable for continued rehabilitation participation. Staff name: Merced Orozco MD Date: 02/05/2018 * Indy Isabel MD - 02/04/2018 7:33 PM CDT Formatting of this note may be different from the original. Infectious Diseases Progress Note Today's Date: 02/04/2018 Admission Date: 01/14/2018 Assessment: Coag neg staph bacteremia- likely contaminant 01/26 BC PIC- neg 01/26 BC peripheral- Coag neg 01/31 BC line and peripheral - neg Low grade fever 01/21-improved/resolved and then recurrent 01/26 w high grade fever off abtx - Eschar of wound w/fat necrosis, ongoing sweats, no other new s/s -01/21 UA- 2-10 WBC, no culture -01/21 BC neg -01/21 KUB- -01/24- plastic eval of wounds- no surgical intervention given lyphedematous tissue, wound team, ongoing areas of dehiscence/eschar 01/26- coag neg (peripheral) , neg PIC 01/26 UA - 0-2 WBC-=urine culture neg 01/31 BC X 2 Non-healing surgical wounds 01/31- Hiberbaric tx started Transaminitis-improved 01/24 - LFT elevated 104/97 01/25 LFT improved 41/68 # GBS bacteremia w sepsis- source suspected left hip wound, less likely pna - Fever and leukocytosis began 12/20/17 - 4/3 L lower lobe infiltrate - read as atelectasis - 12/20 C. diff negative - 12/23 Bcx 1/2 set group B streptococcus; source seems most likely intra-pelvic; 12/24 bcx negative - CT pelvis 12/25: "Ill-defined fluid and air along the anterior margin of the surgical site away from the drain tip. However, no discrete drainable fluid collection is noted. - OR 01/10 for wound eval - no sign of infection - posterior wound starting to granulate, [place] started # Candiduria-resolved - 12/21/17 UA: wbc 2-10, negative nitrite, 1+ luukocytes, Culture > 100,000 Liliana sp - Sensitivities not done, unsure if fluconazole susceptible; repeat urine culture negative 12/28 but improved with micafungin so is suspicion for fluconazole resistance - Treating given indwelling melchor and inability to remove melchor d/t recent bladder repair - ? Candidal intertrigo - groin/mons - Cath change in OR 01/10 - no bladder leak at that time - Micafungin course completed 01/16 # s/p hemipelvectomy for Chondrosarcoma - 11/25/17 MRI: a large lesion throughout the entire left hemipelvis that appeared to be centered within the ilium - 11/30/17 open biopsy: Chondrosarcoma - 11/26/17 CT: few small pulmonary nodules. will resect the masses in the chest later - admission 12/13/17- - 12/14/17: left hemipelvectomy, jamil sacrectomy. Complicated with bladder and urethral injury. Added Cystoscopy with left ureteral stent insertion, Bladder neck repair, Urethroplasty and repair of urethral injury, Vaginal closure. - Stool saturating wound. Diverting colostomy done 12/30. - 01/06 CT: left hemipelvectomy, edema w/in the operative bed- not changed except sl more gas, more focal gas/fluid alonger anterior/inferior and superior surgical margins. # DVT - 11/30/17 IVC filter for DVT within the external iliac vein # Obese # HTN # DM # 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 # Depression # Generalized pain # abx allergy - allergic history to Cephalexin 'years ago' with skin rash and hot flash - tolerated Penicillin when she had dental caries -tolerates carbpenem Recommendations: Her fevers curve has improved since restarting atbx. No focal source so ongoing suspicion is wounds. Given negative cultures- will attempt to de-escalate 1. Continue Vanco 2. Vanco trough 10-15- repeat level 02/05 (ordered) 3. Change Meropenem to Ertapenem 4. Atbx duration is uncertain- would continue at least another week 5. While on Vanco check BMP at least 3 X weekly 6. Monitor WBC- declining- need to make certain this is not drug SE 7. Dr Lynch will round on Wednesday. Please call ID production controller in the interim if questions arise. 8. Complexity of medical decision making is high b/c of the multi-system nature of the infectious disease process and concerns about the complexity of the patient illness including the sensitivity of the organisms being treated, the potential for drug toxicity and interactions, concerns about immunologic function, and interplay of other issues. Discussed w Rehab resident Interval History Temp curve is overall improved. She remains someewhat tachycardic but stable Seen in wound clinic today Reports she is feeling well. No fever chills or sweats. No n/v loose stool No joint pain or rash No cough or sob. Discussed w wound team- they are verey encouraged by the decreased edema of wounds- reports no erythema or concerning areas of wound for infection. Labs: WBC 5K, Cr nl, LFT normal Antimicrobial Start date End date Erythromycin 12/13 Neomycin 12/13 12/13 Polymyxin B 12/14 12/14 Ertapenem 01/10 01/24 Gentamycin 12/14 12/15 Clindamycin 12/14 12/22 Pip/tazo 12/22 01/10 Fluconazole 12/22 12/30 Vancomycin 12/23 12/27 Micafungin 12/30 01/16 Vanco 01/26 active Meropenem 01/26 active Estimated Creatinine Clearance: 108.3 mL/min (based on SCr of 0.59 mg/dL). Medications Scheduled Meds: aspirin chewable tablet 81 mg 81 mg Oral QDAY buPROPion (WELLBUTRIN) tablet 100 mg 100 mg Oral TID busPIRone (BUSPAR) tablet 30 mg 30 mg Oral BID carbamide peroxide (DEBROX) 6.5 % otic solution 5 drop 5 drop Both Ears BID collagenase (SANTYL) topical ointment Topical QDAY docusate (COLACE) capsule 100 mg 100 mg Oral BID ferrous sulfate (FEOSOL, FEROSUL) tablet 325 mg 325 mg Oral TID w/ meals gabapentin (NEURONTIN) capsule 800 mg 800 mg Oral QID insulin aspart U-100 (NOVOLOG FLEXPEN) injection PEN 0-14 Units 0-14 Units Subcutaneous ACHS insulin aspart U-100 (NOVOLOG FLEXPEN) injection PEN 10 Units 10 Units Subcutaneous TID w/ meals insulin glargine (LANTUS SOLOSTAR, BASAGLAR) injection PEN 18 Units 18 Units Subcutaneous QHS lactobacillus rhamnosus GG (CULTURELLE) 15 billion cell capsule 1 capsule 1 capsule Oral BID w/meals levothyroxine (SYNTHROID) tablet 200 mcg 200 mcg Oral QDAY before breakfast lidocaine (LIDODERM) 5 % topical patch 2 patch 2 patch Topical QDAY meropenem (MERREM) IVP 500 mg 500 mg Intravenous Q6H* metFORMIN (GLUCOPHAGE) tablet 500 mg 500 mg Oral BID w/meals nortriptyline (PAMELOR) capsule 50 mg 50 mg Oral QHS oxyCODONE (ROXICODONE, OXY-IR) tablet 15 mg 15 mg Oral Once per day on Wed oxyCODONE SR (OXYCONTIN) tablet 10 mg 10 mg Oral BID pantop[address]ole DR (PROTONIX) tablet 40 mg 40 mg Oral QDAY(21) rivaroxaban (XARELTO) tablet 20 mg 20 mg Oral QDAY w/breakfast simvastatin (ZOCOR) tablet 20 mg 20 mg Oral QHS sitaGLIPtin (JANUVIA) tablet 100 mg 100 mg Oral QDAY sodium chloride PF 0.9% flush 20 mL 20 mL Intravenous FLUSH TID vancomycin (VANCOCIN) 1,250 mg in dextrose 5% (D5W) IVPB 1,250 mg Intravenous Q12H* vancomycin, pharmacy to manage 1 each Service Per Pharmacy Continuous Infusions: PRN and Respiratory Meds:acetaminophen Q6H PRN, alum/mag hydroxide/simeth Q6H PRN, calcium carbonate Q4H PRN, milk of magnesia (CONC) Q4H PRN, ondansetron ( ZOFRAN) IV Q6H PRN, oxyCODONE Q4H PRN, pancrelipase 20,000 Units/ sodium bicarbonate 650 mg(#) PRN (Catalogue Librarian from Rx) Physical Examination Vital Signs: Last Vital Signs: 24 Hour Range BP: 128/64 (02/04 1639) Temp: 36.9 C (98.5 F) (02/04 1639) Pulse: 118 (02/04 1639) Respirations: 20 PER MINUTE (02/04 1639) SpO2: 100 % (02/04 1639) O2 Delivery: None (Room Air) (02/04 1639) BP: (106-128)/(54-65) Temp: [36.5 C (97.7 F)-37.1 C (98.8 F)] Pulse: [107-126] Respirations: [18 PER MINUTE-20 PER MINUTE] SpO2: [92 %-100 %] O2 Delivery: None (Room Air) General appearance: alert, oriented, Lungs: Heart: Regular rhythm, Abdomen: Ext: s/p left hemipelvectomy; mild edema RLE Skin: no new rashes noted Wound: No observed today Lines: PICC RUE- Lab Review Hematology Recent Labs 02/02/18 0631 02/04/18 0550 WBC 7.7 5.0 HGB 10.4* 12.4 HCT 31.0* 37.7 PLTCT 409* 320 Chemistry Recent Labs 02/02/18 0631 02/03/18 1225 02/04/18 0550 NA 137 137 137 K 3.8 4.3 4.1 CL 102 102 103 CO2 30 28 30 BUN 15 15 14 CR 0.68 0.59 0.59 GFR >60 >60 >60 GLU 153* 156* 123* CA 8.6 9.0 8.8 ALBUMIN -- -- 2.3* ALKPHOS -- -- 137* AST -- -- 46* ALT -- -- 44 TOTBILI -- -- 0.2* Microbiology, Radiology and other Diagnostics Review Microbiology data reviewed. Pertinent radiology reviewed Indy Isabel MD Pager [phone] * Hero Camarena - 02/04/2018 5:37 PM CDT Staff requested that this service meet with pt to assess mood and provide brief therapeutic intervention. Attempted to meet with pt at 10:42, 12:10, and 12:41. However, pt could not be seen, as she was working with other therapies/ services. Will attempt to meet with pt at a later time. Hero Camarena, PhD Clinical Psychology Postdoctoral Fellow Pager: [phone] * Nneka Garsia RN - 02/04/2018 4:25 PM CDT Formatting of this note may be different from the original. Wound Ostomy Note NAME:Beata Kaiser :1965 AGE: 52 y.o. ADMISSION DATE: 01/14/2018 DAYS ADMITTED: LOS: 21 days Reason for Consult/Visit: wound VAC Assessment/Plan: Principal Problem: Left hip amputation status Active Problems: Chondrosarcoma (HCC) Acute blood loss as cause of postoperative anemia Depression Anxiety DM (diabetes mellitus) (HCC) 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 Chronic pain Post-op pain Bacteremia Amputated left leg (HCC) Candiduria Wounds (NOT for Pressure Injuries) 11/30/17 0853 Left Buttocks Surgical Incision (Active) 11/30/17 0853 Buttocks Wound Orientation: Left Wound Type: Surgical Incision Wound Type:: Wound Description (Comments): Wound Image 01/21/2018 12:15 PM Agree With My Assessment? Yes 01/08/2018 9:36 PM Wound Base Assessment Eschar 02/04/2018 4:00 PM Surrounding Skin Assessment Macerated;Intact 02/04/2018 4:00 PM Wound Site Closure None 02/04/2018 4:00 PM Wound Drainage Amount Scant 02/04/2018 4:00 PM Wound Drainage Description Serosanguineous 02/04/2018 4:00 PM Wound Dressing Status Changed 02/04/2018 4:00 PM Wound Dressing and / or Treatment Hydrofera Blue Ready 02/04/2018 4:00 PM Wound Length (cm) (Wound Team Only) 19 cm 02/04/2018 4:00 PM Wound Width (cm) (Wound Team Only) 5 cm 02/04/2018 4:00 PM Wound Depth (cm) (Wound Team Only) 0.1 02/04/2018 4:00 PM Wound Volume (cm^3) (Wound Team Only) 9.5 cm^3 02/04/2018 4:00 PM Wound Healing % (Wound Team Only) 9.52 02/04/2018 4:00 PM Number of days: 66 Wounds (NOT for Pressure Injuries) 12/14/17 1748 Left Abdomen Ulcer (not from pressure) (Active) 12/14/17 1748 Abdomen Wound Orientation: Left Wound Type: Ulcer (not from pressure) Wound Type:: Wound Description (Comments): Wound Image 01/17/2018 10:00 AM Agree With My Assessment? Except 12/30/2017 2:45 PM Wound Base Assessment Moist;Gallardo;Yellow;Slough 02/04/2018 4:00 PM Surrounding Skin Assessment Intact 02/04/2018 4:00 PM Wound Site Closure None 02/04/2018 4:00 PM Wound Drainage Amount Scant 02/04/2018 4:00 PM Wound Drainage Description Serous 02/04/2018 4:00 PM Wound Dressing Status Changed 02/04/2018 4:00 PM Wound Dressing and / or Treatment Hydrofera Blue Ready 02/04/2018 4:00 PM Wound Length (cm) (Wound Team Only) 4 cm 02/04/2018 4:00 PM Wound Width (cm) (Wound Team Only) 19 cm 02/04/2018 4:00 PM Wound Depth (cm) (Wound Team Only) 0.1 02/04/2018 4:00 PM Wound Volume (cm^3) (Wound Team Only) 7.6 cm^3 02/04/2018 4:00 PM Wound Healing % (Wound Team Only) 9.52 02/04/2018 4:00 PM Number of days: 52 Wounds (NOT for Pressure Injuries) 12/23/17 1345 Left Labia (Active) 12/23/17 1345 Labia Wound Orientation: Left Wound Type: Wound Type:: Wound Description (Comments): Agree With My Assessment? Yes 01/07/2018 9:55 PM Wound Base Assessment Yellow;Slough 02/04/2018 4:00 PM Surrounding Skin Assessment Intact;Edema 02/04/2018 4:00 PM Wound Site Closure None 02/04/2018 4:00 PM Wound Drainage Amount Scant 02/04/2018 4:00 PM Wound Drainage Description Serous 02/04/2018 4:00 PM Wound Dressing Status Changed 02/04/2018 4:00 PM Wound Dressing and / or Treatment Collagenase;Foam ([place]) 02/04/2018 4:00 PM Wound Length (cm) (Wound Team Only) 2 cm 02/04/2018 4:00 PM Wound Width (cm) (Wound Team Only) 0.8 cm 02/04/2018 4:00 PM Wound Depth (cm) (Wound Team Only) 0.1 02/04/2018 4:00 PM Wound Volume (cm^3) (Wound Team Only) 0.16 cm^3 02/04/2018 4:00 PM Wound Healing % (Wound Team Only) 91.47 02/04/2018 4:00 PM Number of days: 43 Wounds (NOT for Pressure Injuries) 12/30/17 1002 Left;Anterior Surgical Incision stump (Active) 12/30/17 1002 Wound Orientation: Left;Anterior Wound Type: Surgical Incision Wound Type:: stump Wound Description (Comments): Wound Image 01/21/2018 12:15 PM Agree With My Assessment? Yes 01/06/2018 8:00 PM Wound Base Assessment Eschar;Yellow;Gallardo;Moist 02/04/2018 4:00 PM Surrounding Skin Assessment Purple;[place];Intact 02/04/2018 4:00 PM Wound Site Closure None 02/04/2018 4:00 PM Wound Drainage Amount Scant 02/04/2018 4:00 PM Wound Drainage Description Serous 02/04/2018 4:00 PM Wound Dressing Status Changed 02/04/2018 4:00 PM Wound Dressing and / or Treatment Hydrofera Blue Ready 02/04/2018 4:00 PM Wound Length (cm) (Wound Team Only) 18 cm 02/04/2018 4:00 PM Wound Width (cm) (Wound Team Only) 24 cm 02/04/2018 4:00 PM Wound Depth (cm) (Wound Team Only) 0.1 02/04/2018 4:00 PM Wound Volume (cm^3) (Wound Team Only) 43.2 cm^3 02/04/2018 4:00 PM Wound Healing % (Wound Team Only) -26.46 02/04/2018 4:00 PM Number of days: 36 Wounds (NOT for Pressure Injuries) 01/10/18 1100 Hip Surgical Incision (Active) 01/10/18 1100 Hip Wound Orientation: Wound Type: Surgical Incision Wound Type:: Wound Description (Comments): Wound Image 01/21/2018 12:15 PM Agree With My Assessment? Except 01/24/2018 4:00 AM Wound Base Assessment Eschar;[place];Moist;Slough;Gallardo 02/04/2018 4:00 PM Surrounding Skin Assessment Intact;Macerated 02/04/2018 4:00 PM Wound Site Closure Wound Adhesive Bandage 02/04/2018 4:00 PM Wound Drainage Amount Moderate 02/04/2018 4:00 PM Wound Drainage Description Serosanguineous 02/04/2018 4:00 PM Wound Dressing Status Changed 02/04/2018 4:00 PM Wound Dressing and / or Treatment VAC @ -125 mm/Hg;VAC sponge - black;VAC tx: Continuous, Intermittent 02/04/2018 4:00 PM Wound Length (cm) (Wound Team Only) 8 cm 02/04/2018 4:00 PM Wound Width (cm) (Wound Team Only) 27 cm 02/04/2018 4:00 PM Wound Depth (cm) (Wound Team Only) 2.5 02/04/2018 4:00 PM Wound Volume (cm^3) (Wound Team Only) 540 cm^3 02/04/2018 4:00 PM Wound Healing % (Wound Team Only) 76.92 02/04/2018 4:00 PM Tunneling in CM (Wound Team Only) 15 cm 02/04/2018 4:00 PM [facility] Location 3 02/04/2018 4:00 PM Number of days: 25 Wounds (NOT for Pressure Injuries) 01/10/18 Left;Inner;Posterior Buttocks Surgical Incision (Active) 01/10/18 Buttocks Wound Orientation: Left;Inner;Posterior Wound Type: Surgical Incision Wound Type:: Wound Description (Comments): Wound Base Assessment Eschar 02/04/2018 4:00 PM Surrounding Skin Assessment Red;Macerated 02/04/2018 4:00 PM Wound Site Closure Ceci 02/04/2018 4:00 PM Wound Drainage Amount Scant 02/04/2018 4:00 PM Wound Drainage Description Serosanguineous 02/04/2018 4:00 PM Wound Dressing Status Changed 02/04/2018 4:00 PM Wound Dressing and / or Treatment Hydrofera Blue Ready 02/04/2018 4:00 PM Wound Length (cm) (Wound Team Only) 7 cm 02/04/2018 4:00 PM Wound Width (cm) (Wound Team Only) 12 cm 02/04/2018 4:00 PM Wound Depth (cm) (Wound Team Only) 0.1 02/04/2018 4:00 PM Wound Volume (cm^3) (Wound Team Only) 8.4 cm^3 02/04/2018 4:00 PM Wound Healing % (Wound Team Only) -29.23 02/04/2018 4:00 PM Number of days: 25 Pt seen today for wound vac change. Wound appears to have less edema and less erythema. Overall improvement to tissue surrounding wound. Procedure: Negative Wound Therapy Dressing Change Anesthesia Type: Not Applicable or None Provider(s) and Role: RN Negative Wound Pressure Device Type: KCI VAC Contact layer: no Wound dimension (length x width x depth, tunneling, undermining): see above Number of sponges in the wound prior to dressing change: 2 Number of sponges removed from the wound: 2 Type of sponge: Black foam Number of sponges placed in the wound: 6 Nneka Garsia RN Wound base cleaned with normal saline and gauze. Black vac foam applied and secured with adhesive drape. Dressing connected to wound vac with setting of - 125mmhg continuous. Next dressing change planned for 02/07/18 * Merced Orozco MD - 02/04/2018 12:52 PM CDT Formatting of this note may be different from the original. ATTESTATION I personally observed the resident performing the E/M, discussed case with resident, and concur with resident documentation of history, physical assessment and treatment plan unless otherwise noted. Labs and vitals reviewed and stable. Tachycardia stable. Mild trans-aminitis essentially stable. Still optimizing pain control. Staff name: Merced Orozco MD Date: 02/04/2018 Physical Medicine & Rehabilitation Progress Note Today's Date: 02/04/2018 Admission Date: 01/14/2018 LOS: 21 days Insurance: [facility] Principal Problem: Left hip amputation status Active Problems: Chondrosarcoma (HCC) Acute blood loss as cause of postoperative anemia Depression Anxiety DM (diabetes mellitus) (HCC) 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 Chronic pain Post-op pain Bacteremia Amputated left leg (HCC) Candiduria Assessment/Plan: Beata Lema a 52 y.o.female[facility] the following issues : 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 Patient will need a modified schedule of 15 hours over 7 days to accommodate HBOT schedule. Goals: household mobility at wheelchair level min A Tentative discharge date: 02/28/18 Recommended therapy after discharge: home health OT/PT Recommended equipment: Hospital bed, wheelchair/cushion, slideboard, ramp - Patient requires hospital bed at discharge. Patient requires positioning of the body in ways not feasible with ordinary beds to in order to alleviate pain. Patient requires frequent repositioning of the body and/or has an immediate need for change in body position. Daily Functional Update: Transfers Device Sit to Stand Transfer: Assistive Device: Sliding Board (02/03/2018 10:01 AM) No Data Recorded Gait Device Assist Required Distance Gait: Assistive Device: IV Pole (12/01/2017 11:00 AM) No Data Recorded Gait Distance: 400 feet (12/01/2017 11:00 AM) Toileting Assist Required Equipment Toilet Transfer Toileting Assist: Total Assist (01/06/2018 1:00 PM) No Data Recorded No Data Recorded Dressing Lower Body LE Dressing Assist: Total Assist (02/03/2018 8:45 AM) Chrondrosarcoma s/p hemipelvectomy and hemisacrectomy Lymphedema wound and residual limb >wound vac in place. Changes M/W/F by wound vac team. PO 15mg oxycodone MWF for [place] changes + lidocaine into sponge during acute hospitalization - weaned off IV pain meds >Change dressings prn with dry sterile gauze and hypafix tape >vitamin A &D for labia wound, collagenase for left lower abdomen wound healing >Per plastic surgery note 01/24 not recommending further surgical intervention at this time >01/31 Pt had trial of HBOT which she tolerated well >Plan on 20 treatment of HBOT M-F in late afternoon Post-op pain in setting of chronic pain Phantom limb pain, neuropathic pain >Tylenol, oxycontin 10mg BID and oxycodone 20mg q3h prn. Lidoderm patch prn. > Continue nortriptyline 50mg QHS (increased 01/27) > Continue gabapentin 800mg Q6h s/p diverting colostomy - Stool saturating wound. Diverting colostomy done 12/30 >wound/ostomy consulted, working on education with nursing Bladder injury, recent repair - bladder and urethral injuries during hemipelvectomy on 12/14/17 - underwent cystoscopy with left ureteral stent insertion, Bladder neck repair, Urethroplasty and repair of urethral injury, Vaginal closure >continue melchor catheter > Urology f/u after rehab discharge Chest lesions (metastases?) - 11/26/17 CT: few small pulmonary nodules. >plan is to resect the masses in the chest later >CT chest scheduled for 02/08 with f/u with CTS surgery - may need to reschedule GBS bacteremia w/ sepsis due to left hip wound - Fever and leukocytosis began 12/20/17, Bcx 1/2 positive for GBS on 12/23 -Fever 01/21 - blood cx and urine cx NGTD >Completed course of abx 01/23 ertapenem > Multiple fevers 01/26 in pm, started Vanc/Meropenem and obtained blood cx x2 and UA/reflex cx - 09/21 bcx contaminated, rest NGTD > Repeat blood cx's 03/03 NGTD > Duration of IV abx TBD DVT - 11/30/17 IVC filter for DVT within the external iliac vein >cont Xarelto ABLA - Transfusion 01/15 and 01/28 1U PRBC - monitor labs T2DM - A1c 6.5%, controlled - CAMP TENDER regimen: Metformin thousand milligrams twice a day, [id number] mg daily >Continue with Lantus 20 units QHS, novolog 14u postmeal, MDCF 5x per day 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 - CAMP TENDER 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 daily - TSH 2.1 this admission >levothyroxine increased 200 mcg on 01/26 >She will need repeat thyroid function tests in 6-8 weeks (~March 08) Major depressive disorder, recurrent, moderate CLAUDIA Adjustment disorder with mixed anxiety and depressed mood > continue CAMP TENDER Wellbutrin and buspar, started on nortriptyline this admission Nutrition - 01/31 albumin 2.4, Prealbumin 10.0, recheck 02/07 -Pt is currently meeting caloric and protein needs > weekly prealbumin and albumin - remains low > D/c corpak 02/02 > Continue current diet with protein supplementation HLD: holding CAMP TENDER statin Insomnia: nortriptyline 50mg qhs DVT Prophylaxis:Xarelto, will discharge on it Subjective No events overnight. Pt lying in bed when seen this am. Pt somewhat anxious to have wound vac changed today, complaining of pain this am. Happy to have her corpak out. No other concerns when seen. Objective Vital Signs: Last Filed Vital Signs: 24 Hour Range BP: 116/54 (02/04 1201) Temp: 36.8 C (98.3 F) (02/04 1201) Pulse: 110 (02/04 1201) Respirations: 18 PER MINUTE (02/04 1201) SpO2: 98 % (02/04 1201) O2 Delivery: None (Room Air) (02/04 120) BP: (106-143)/(54-67) Temp: [36.5 C (97.7 F)-37.3 C (99.1 F)] Pulse: [107-126] Respirations: [18 PER MINUTE-20 PER MINUTE] SpO2: [92 %-98 %] O2 Delivery: None (Room Air) Intensity Pain Scale 0-10 (Pain 1): 10 (02/04/18 0810) Vitals: 02/02/18 0440 02/03/18 0400 02/04/18 0711 Weight: 92.3 kg (203 lb 7.8 oz) 91.7 kg (202 lb 2.6 oz) 104 kg (229 lb 4.5 oz) Intake/Output Summary: (Last 24 hours) Intake/Output Summary (Last 24 hours) at 02/04/18 1254 Last data filed at 02/04/18 1130 Gross per 24 hour Intake 590 ml Output 5025 ml Net -4435 ml Stool Occurrence: 1 Oral Diet Order: Diabetic [id number] Kcal/day (60 g Carb/meal, 30 g Carb/HS snack ) Last BM Date: 02/02/18 Lab: Results for orders placed or performed during the hospital encounter of (from the past 24 hour(s)) POC GLUCOSE Collection Time: 02/03/18 3:09 PM # # Low-High Glucose, POC 167 (H) 70 - 100 MG/DL POC GLUCOSE Collection Time: 02/03/18 5:30 PM # # Low-High Glucose, POC 95 70 - 100 MG/DL POC GLUCOSE Collection Time: 02/03/18 6:49 PM # # Low-High Glucose, POC 83 70 - 100 MG/DL POC GLUCOSE Collection Time: 02/03/18 9:26 PM # # Low-High Glucose, POC 155 (H) 70 - 100 MG/DL BASIC METABOLIC PANEL CELLULAR THERAPEUTICS Collection Time: 02/04/18 5:50 AM # # Low-High Sodium 137 137 - 147 MMOL/L Potassium 4.1 3.5 - 5.1 MMOL/L Chloride 103 98 - 110 MMOL/L CO2 30 21 - 30 MMOL/L Anion Gap 4 3 - 12 Glucose 123 (H) 70 - 100 MG/DL Blood Urea Nitrogen 14 7 - 25 MG/DL Creatinine 0.59 0.4 - 1.00 MG/DL Calcium 8.8 8.5 - 10.6 MG/DL eGFR Non >60 >60 mL/min eGFR >60 >60 mL/min LIVER FUNCTION PANEL Collection Time: 02/04/18 5:50 AM # # Low-High Total Bilirubin 0.2 (L) 0.3 - 1.2 MG/DL Bilirubin, Direct 0.1 <0.4 MG/DL Albumin 2.3 (L) 3.5 - 5.0 G/DL Alk Phosphatase 137 (H) 25 - 110 U/L AST (SGOT) 46 (H) 7 - 40 U/L ALT (SGPT) 44 7 - 56 U/L Total Protein 5.4 (L) 6.0 - 8.0 G/DL CBC AND DIFF Collection Time: 02/04/18 5:50 AM # # Low-High White Blood Cells 5.0 4.5 - 11.0 K/UL RBC 4.73 4.0 - 5.0 M/UL Hemoglobin 12.4 12.0 - 15.0 GM/DL Hematocrit 37.7 36 - 45 % MCV 79.7 (L) 80 - 100 FL MCH 26.2 26 - 34 PG MCHC 32.8 32.0 - 36.0 G/DL RDW 19.2 (H) 11 - 15 % Platelet Count 320 150 - 400 K/UL MPV 7.0 7 - 11 FL Neutrophils 70 41 - 77 % Lymphocytes 11 (L) 24 - 44 % Monocytes 11 4 - 12 % Eosinophils 7 (H) 0 - 5 % Basophils 1 0 - 2 % Absolute Neutrophil Count 3.60 1.8 - 7.0 K/UL Absolute Lymph Count 0.60 (L) 1.0 - 4.8 K/UL Absolute Monocyte Count 0.60 0 - 0.80 K/UL Absolute Eosinophil Count 0.30 0 - 0.45 K/UL Absolute Basophil Count 0.00 0 - 0.20 K/UL POC GLUCOSE Collection Time: 02/04/18 7:11 AM # # Low-High Glucose, POC 118 (H) 70 - 100 MG/DL POC GLUCOSE Collection Time: 02/04/18 12:00 PM # # Low-High Glucose, POC 176 (H) 70 - 100 MG/DL Scheduled Meds: aspirin chewable tablet 81 mg 81 mg Oral QDAY buPROPion (WELLBUTRIN) tablet 100 mg 100 mg Oral TID busPIRone (BUSPAR) tablet 30 mg 30 mg Oral BID carbamide peroxide (DEBROX) 6.5 % otic solution 5 drop 5 drop Both Ears BID collagenase (SANTYL) topical ointment Topical QDAY docusate (COLACE) capsule 100 mg 100 mg Oral BID ferrous sulfate (FEOSOL, FEROSUL) tablet 325 mg 325 mg Oral TID w/ meals gabapentin (NEURONTIN) capsule 800 mg 800 mg Oral QID insulin aspart U-100 (NOVOLOG FLEXPEN) injection PEN 0-14 Units 0-14 Units Subcutaneous ACHS insulin aspart U-100 (NOVOLOG FLEXPEN) injection PEN 10 Units 10 Units Subcutaneous TID w/ meals insulin glargine (LANTUS SOLOSTAR, BASAGLAR) injection PEN 18 Units 18 Units Subcutaneous QHS lactobacillus rhamnosus GG (CULTURELLE) 15 billion cell capsule 1 capsule 1 capsule Oral BID w/meals levothyroxine (SYNTHROID) tablet 200 mcg 200 mcg Oral QDAY before breakfast lidocaine (LIDODERM) 5 % topical patch 2 patch 2 patch Topical QDAY meropenem (MERREM) IVP 500 mg 500 mg Intravenous Q6H* metFORMIN (GLUCOPHAGE) tablet 500 mg 500 mg Oral BID w/meals nortriptyline (PAMELOR) capsule 50 mg 50 mg Oral QHS oxyCODONE (ROXICODONE, OXY-IR) tablet 15 mg 15 mg Oral Once per day on Wed oxyCODONE SR (OXYCONTIN) tablet 10 mg 10 mg Oral BID pantoprazole DR (PROTONIX) tablet 40 mg 40 mg Oral QDAY(21) rivaroxaban (XARELTO) tablet 20 mg 20 mg Oral QDAY w/breakfast simvastatin (ZOCOR) tablet 20 mg 20 mg Oral QHS sitaGLIPtin (JANUVIA) tablet 100 mg 100 mg Oral QDAY sodium chloride PF 0.9% flush 20 mL 20 mL Intravenous FLUSH TID vancomycin (VANCOCIN) 1,250 mg in dextrose 5% (D5W) IVPB 1,250 mg Intravenous Q12H* vancomycin, pharmacy to manage 1 each Service Per Pharmacy Continuous Infusions: PRN and Respiratory Meds:acetaminophen Q6H PRN, alum/mag hydroxide/simeth Q6H PRN, calcium carbonate Q4H PRN, milk of magnesia (CONC) Q4H PRN, ondansetron ( ZOFRAN) IV Q6H PRN, oxyCODONE Q4H PRN, pancrelipase 20,000 Units/ sodium bicarbonate 650 mg(#) PRN (Catalogue Librarian from Rx) Physical Exam VS: BP 116/54 (BP Source: Arm, Left) | Pulse 110 | Temp 36.8 C (98.3 F) | Ht 160 cm (63") | Wt 104 kg (229 lb 4.5 oz) | LMP 01/14/2013 | SpO2 98% | BMI 40.61 kg/m Gen: awake, alert, NAD HEENT: NCAT, MMM CV: RRR, no murmur Pulm: CTAB, no w/r Abd: nondistended, nontender Extremities: mild edema rle, s/p hemipelvectomy on left with dressings and wound vac in place Psych: Pleasent mood Therapy Notes & Labs Reviewed. * Skyler Enriquez RN - 02/04/2018 11:42 AM CDT I have reviewed the notes, assessment, and/or procedures performed by Jaclyn Mancuso RN and concur with her documentation unless otherwise noted * Casey Schneider MD - 02/04/2018 11:35 AM CDT Formatting of this note may be different from the original. Wound Consult Note NAME:Beata Kaiser :1965 AGE: 52 y.o. ADMISSION DATE: 01/14/2018 DAYS ADMITTED: LOS: 21 days Principal Problem: Left hip amputation status Active Problems: Chondrosarcoma (HCC) Acute blood loss as cause of postoperative anemia Depression Anxiety DM (diabetes mellitus) (HCC) 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 Chronic pain Post-op pain Bacteremia Amputated left leg (HCC) Candiduria Assessment/Plan: HBOT 2.0 BINA Recommendations: Continue current treatment plan Reason for Consultation: Status post hemipelvectomy with compromised skin flap History of Present Illness: Has received 5 HBOT with improvement if flap lymphedema, less venous congestion, improved periulcer-incisional skin and less output per VAC application. Continue treatment plan. Tolerating HBOT with no complaints. Past Medical History: Past Medical History: Diagnosis Date Anxiety Back pain Depression DM (diabetes mellitus) (HCC) 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 Past Surgical History: Past Surgical History: Procedure Laterality Date SKIN BIOPSY Left 11/30/2017 BIOPSY SKIN LEFT PELVIS performed by [facility] PELVIS OSTEOTOMY Left 12/14/2017 JAMIL PELVECTOMY performed by Tam[facility] URETER STENT PLACEMENT Bilateral 12/14/2017 CYSTORRHAPHY AND BLADDER NECK REPAIR, CYSTOSCOPY, performed by Spencer Purcell [facility] PERIPHERAL VASCULAR SURGERY Left 12/14/2017 LEFT ILIAC EXPOSURE performed by Pio Malagon DO [facility] LEG DEBRIDEMENT Left 01/10/2018 WOUND EXPLORATION LEFT HEMIPELVECTOMY, IRRIGATION AND DEBRIDEMENT, WOUND VAC PLACEMENT performed by Tam[facility] NM VOIDING CYSTOGRAM N/A 01/10/2018 CYSTOGRAM, MELCHOR CATHETER EXCHANGE performed by Tamiko [facility] SECTION HERNIA REPAIR MANDIBLE SURGERY Family/Social History: Family History Problem Relation Age of Onset Osteoporosis Mother Arthritis-rheumatoid Maternal Grandmother Social History Social History Marital status: Spouse name: N/A Number of children: N/A Years of education: N/A Social History Main Topics Smoking status: Never Smoker Smokeless tobacco: Never Used Alcohol use No Drug use: No Sexual activity: Not on file Other Topics Concern Not on file Social History Narrative No narrative on file Review of Systems: Integument/breast: compromised skin flap Objective: Allergies: Allergies Allergen Reactions Cephalexin SEE COMMENTS Face gets red, feels really hot, has tolerated penicillin Medications: Scheduled Meds: aspirin chewable tablet 81 mg 81 mg Oral QDAY buPROPion (WELLBUTRIN) tablet 100 mg 100 mg Oral TID busPIRone (BUSPAR) tablet 30 mg 30 mg Oral BID carbamide peroxide (DEBROX) 6.5 % otic solution 5 drop 5 drop Both Ears BID collagenase (SANTYL) topical ointment Topical QDAY docusate (COLACE) capsule 100 mg 100 mg Oral BID ferrous sulfate (FEOSOL, FEROSUL) tablet 325 mg 325 mg Oral TID w/ meals gabapentin (NEURONTIN) capsule 800 mg 800 mg Oral QID insulin aspart U-100 (NOVOLOG FLEXPEN) injection PEN 0-14 Units 0-14 Units Subcutaneous ACHS insulin aspart U-100 (NOVOLOG FLEXPEN) injection PEN 10 Units 10 Units Subcutaneous TID w/ meals insulin glargine (LANTUS SOLOSTAR, BASAGLAR) injection PEN 18 Units 18 Units Subcutaneous QHS lactobacillus rhamnosus GG (CULTURELLE) 15 billion cell capsule 1 capsule 1 capsule Oral BID w/meals levothyroxine (SYNTHROID) tablet 200 mcg 200 mcg Oral QDAY before breakfast lidocaine (LIDODERM) 5 % topical patch 2 patch 2 patch Topical QDAY meropenem (MERREM) IVP 500 mg 500 mg Intravenous Q6H* metFORMIN (GLUCOPHAGE) tablet 500 mg 500 mg Oral BID w/meals nortriptyline (PAMELOR) capsule 50 mg 50 mg Oral QHS oxyCODONE (ROXICODONE, OXY-IR) tablet 15 mg 15 mg Oral Once per day on Wed oxyCODONE SR (OXYCONTIN) tablet 10 mg 10 mg Oral BID pantoprazole DR (PROTONIX) tablet 40 mg 40 mg Oral QDAY(21) rivaroxaban (XARELTO) tablet 20 mg 20 mg Oral QDAY w/breakfast simvastatin (ZOCOR) tablet 20 mg 20 mg Oral QHS sitaGLIPtin (JANUVIA) tablet 100 mg 100 mg Oral QDAY sodium chloride PF 0.9% flush 20 mL 20 mL Intravenous FLUSH TID vancomycin (VANCOCIN) 1,250 mg in dextrose 5% (D5W) IVPB 1,250 mg Intravenous Q12H* vancomycin, pharmacy to manage 1 each Service Per Pharmacy Continuous Infusions: PRN and Respiratory Meds:acetaminophen Q6H PRN, alum/mag hydroxide/simeth Q6H PRN, calcium carbonate Q4H PRN, milk of magnesia (CONC) Q4H PRN, ondansetron ( ZOFRAN) IV Q6H PRN, oxyCODONE Q4H PRN, pancrelipase 20,000 Units/ sodium bicarbonate 650 mg(#) PRN (Catalogue Librarian from Rx) Prescriptions Prior to Admission Medication Sig Dispense Refill Last Dose acetaminophen (TYLENOL) 500 mg tablet Take 2 tablets by mouth every 8 hours. Max of 4,000 mg of acetaminophen in 24 hours. 200 tablet 0 alum/mag hydroxide/simeth (MYLANTA, MAALOX PLUS) 200/200/20 mg/5 mL susp oral suspension Take 30 mL by mouth every 6 hours as needed. aspirin EC 81 mg tablet Take 81 mg by mouth daily. Take with food. 2017 buPROPion (WELLBUTRIN) 100 mg tablet Take 1 tablet by mouth three times daily. 90 tablet 0 busPIRone (BUSPAR) 30 mg tablet Take 30 mg by mouth twice daily. 2017 collagenase (SANTYL) 250 unit/g topical ointment Apply to left lower abdominal wound. Do not apply over incision. 0 diazePAM (VALIUM) 5 mg tablet Take 0.5-1 tablets by mouth every 8 hours as needed. [] ertapenem (INVANZ) 1 g/10 mL IVP Administer 10 mL through vein every 24 hours for 9 days. 1 each gabapentin (NEURONTIN) 300 mg capsule Take 3 capsules by mouth three times daily. 270 capsule 3 HYDROmorphone injection (DILAUDID) 2 mg/mL syrg Administer 0.5-1 mg through vein three times weekly Earliest Fill Date: 01/14/18 Only as needed for wound vac changes. Attempt to wean. insulin aspart U-100 (NOVOLOG FLEXPEN) 100 unit/mL injection PEN Inject 8 Units under the skin three times daily after meals. 45 mL 3 insulin glargine (LANTUS SOLOSTAR, BASAGLAR) 100 unit/mL (3 mL) injection PEN Inject 22 Units under the skin at bedtime daily. 45 mL 3 insulin NPH (HUMULIN N KWIKPEN) 100 unit/mL (3 mL) injection PEN Inject 30 Units under the skin daily. 45 mL 3 insulin pen needles (disposable) (BD UF LYNETTE PEN NEEDLES) 32 gauge x 5/32" pen needle Use 1 each as directed before meals and at bedtime. Use with insulin injections. 300 each 3 lactobacillus rhamnosus GG (CULTURELLE) 15 billion cell cpSP capsule Take 1 capsule by mouth as directed twice daily with meals. 90 capsule 3 levothyroxine (SYNTHROID) 175 mcg tablet Take 175 mcg by mouth daily. 11/29 lidocaine 2% (20 mg/mL) soln 50 mL by SEE ADMIN INSTRUCTIONS route three times weekly. To be used for wound vac changes PRN. Use 50 ml to infiltrate wound vac sponge prior to wound vac changes for pain control. 5 mL lisinopril (PRINIVIL; ZESTRIL) 10 mg tablet Take 10 mg by mouth daily. 08/2018 lovastatin(+) (MEVACOR) 40 mg tablet Take 40 mg by mouth at bedtime daily. 11/29/2017 [] micafungin (MYCAMINE) 100 mg/5 mL 100 mg in sodium chloride 0.9% ( NS) 0.9 % 100 mL IVPB (MB+) Administer 100 mg through vein every 24 hours for 2 days. nortriptyline (PAMELOR) 25 mg capsule Take 1 capsule by mouth at bedtime daily. oxyCODONE SR (OXYCONTIN) 20 mg tablet Take 1 tablet by mouth twice daily Earliest Fill Date: 01/14/18 0 oxycodone(+) (ROXICODONE, OXY-IR) 10 mg tablet Take 1-2 tablets by mouth every 4 hours as needed Earliest Fill Date: 01/14/18 75 tablet 0 pancrelipase 20,000 Units/ sodium bicarbonate 650 mg(#) (KU CLOG DESTROYER) 20,000 Unit/ 650 mg cap Take 1 capsule via feeding tube PRN (Catalogue Librarian from Rx) ( Occluded Feeding Tube). pantoprazole DR (PROTONIX) 40 mg tablet Take 1 tablet by mouth daily. 90 tablet 3 potassium chloride SR (K-DUR) 10 mEq tablet Take 10 mEq by mouth daily. Take with a meal and a full glass of water. 11/29/2017 rivaroxaban (XARELTO) 20 mg tablet Take 1 tablet by mouth daily with breakfast. 90 tablet 0 senna/docusate (SENOKOT-S) 8.6/50 mg tablet Take 1 tablet by mouth twice daily. 60 tablet 0 simethicone (MYLICON) 80 mg chew tablet Chew 1 tablet by mouth every 6 hours as needed for Flatulence. 30 tablet 0 vitamin A & D oint Apply topically to affected area twice daily. Apply thin layer of ointment to labial wound. Vital Signs: Last Filed Vital Signs: 24 Hour Range BP: 121/65 (02/04 822) Temp: 36.5 C (97.7 F) (02/04 822) Pulse: 111 (02/04 822) Respirations: 20 PER MINUTE (02/04 822) SpO2: 97 % (02/04 822) O2 Delivery: None (Room Air) (02/04 822) BP: (106-143)/(56-68) Temp: [36.4 C (97.5 F)-37.3 C (99.1 F)] Pulse: [107-126] Respirations: [18 PER MINUTE-20 PER MINUTE] SpO2: [92 %-99 %] O2 Delivery: None (Room Air) Intensity Pain Scale 0-10 (Pain 1): 10 (02/04/18 0810) Wt Readings from Last 10 Encounters: 02/04/18 104 kg (229 lb 4.5 oz) 02/03/18 91.7 kg (202 lb 2.6 oz) 02/02/18 92.3 kg (203 lb 7.8 oz) 02/01/18 90.7 kg (200 lb) 01/14/18 102.3 kg (225 lb 8.5 oz) 12/01/17 104.3 kg (230 lb) 11/29/17 104.9 kg (231 lb 3.2 oz) Body mass index is 40.61 kg/m. Physical Exam: General appearance: alert and cooperative HEENT: Left cerumen impaction Neurologic: awake and alert, memory intact Lungs: clear to auscultation bilaterally Heart: regular rate and rhythm, S1, S2 normal, no murmur, click, rub or gallop Abdomen: soft, non-tender. Bowel sounds normal. No masses, no organomegaly Extremities: status post left hemipelvectomy Skin: Less lymphedema in flap, improvement in vascular congestion, abdoulaye- incisional skin improved in appearance Laboratory Review: 24-hour labs: Results for orders placed or performed during the hospital encounter of (from the past 24 hour(s)) POC GLUCOSE Collection Time: 02/03/18 12:00 PM Result Value Ref Range Glucose, POC 121 (H) 70 - 100 MG/DL BASIC METABOLIC PANEL CELLULAR THERAPEUTICS Collection Time: 02/03/18 12:25 PM Result Value Ref Range Sodium 137 137 - 147 MMOL/L Potassium 4.3 3.5 - 5.1 MMOL/L Chloride 102 98 - 110 MMOL/L CO2 28 21 - 30 MMOL/L Anion Gap 7 3 - 12 Glucose 156 (H) 70 - 100 MG/DL Blood Urea Nitrogen 15 7 - 25 MG/DL Creatinine 0.59 0.4 - 1.00 MG/DL Calcium 9.0 8.5 - 10.6 MG/DL eGFR Non >60 >60 mL/min eGFR >60 >60 mL/min POC GLUCOSE Collection Time: 02/03/18 3:09 PM Result Value Ref Range Glucose, POC 167 (H) 70 - 100 MG/DL POC GLUCOSE Collection Time: 02/03/18 5:30 PM Result Value Ref Range Glucose, POC 95 70 - 100 MG/DL POC GLUCOSE Collection Time: 02/03/18 6:49 PM Result Value Ref Range Glucose, POC 83 70 - 100 MG/DL POC GLUCOSE Collection Time: 02/03/18 9:26 PM Result Value Ref Range Glucose, POC 155 (H) 70 - 100 MG/DL BASIC METABOLIC PANEL CELLULAR THERAPEUTICS Collection Time: 02/04/18 5:50 AM Result Value Ref Range Sodium 137 137 - 147 MMOL/L Potassium 4.1 3.5 - 5.1 MMOL/L Chloride 103 98 - 110 MMOL/L CO2 30 21 - 30 MMOL/L Anion Gap 4 3 - 12 Glucose 123 (H) 70 - 100 MG/DL Blood Urea Nitrogen 14 7 - 25 MG/DL Creatinine 0.59 0.4 - 1.00 MG/DL Calcium 8.8 8.5 - 10.6 MG/DL eGFR Non >60 >60 mL/min eGFR >60 >60 mL/min LIVER FUNCTION PANEL Collection Time: 02/04/18 5:50 AM Result Value Ref Range Total Bilirubin 0.2 (L) 0.3 - 1.2 MG/DL Bilirubin, Direct 0.1 <0.4 MG/DL Albumin 2.3 (L) 3.5 - 5.0 G/DL Alk Phosphatase 137 (H) 25 - 110 U/L AST (SGOT) 46 (H) 7 - 40 U/L ALT (SGPT) 44 7 - 56 U/L Total Protein 5.4 (L) 6.0 - 8.0 G/DL CBC AND DIFF Collection Time: 02/04/18 5:50 AM Result Value Ref Range White Blood Cells 5.0 4.5 - 11.0 K/UL RBC 4.73 4.0 - 5.0 M/UL Hemoglobin 12.4 12.0 - 15.0 GM/DL Hematocrit 37.7 36 - 45 % MCV 79.7 (L) 80 - 100 FL MCH 26.2 26 - 34 PG MCHC 32.8 32.0 - 36.0 G/DL RDW 19.2 (H) 11 - 15 % Platelet Count 320 150 - 400 K/UL MPV 7.0 7 - 11 FL Neutrophils 70 41 - 77 % Lymphocytes 11 (L) 24 - 44 % Monocytes 11 4 - 12 % Eosinophils 7 (H) 0 - 5 % Basophils 1 0 - 2 % Absolute Neutrophil Count 3.60 1.8 - 7.0 K/UL Absolute Lymph Count 0.60 (L) 1.0 - 4.8 K/UL Absolute Monocyte Count 0.60 0 - 0.80 K/UL Absolute Eosinophil Count 0.30 0 - 0.45 K/UL Absolute Basophil Count 0.00 0 - 0.20 K/UL POC GLUCOSE Collection Time: 02/04/18 7:11 AM Result Value Ref Range Glucose, POC 118 (H) 70 - 100 MG/DL Chest X-Ray: No pertinent radiology. Wound Exam: As noted Continue VAC application and Hydrofera blue topically Wound Dimensions (as per W/C nursing assessment): Wounds (NOT for Pressure Injuries) 11/30/17 0853 Left Buttocks Surgical Incision (Active) 11/30/17 0853 Buttocks Wound Orientation: Left Wound Type: Surgical Incision Wound Type:: Wound Description (Comments): Carlos Manuel Rosales Drain, Sutures, xeroform, 4x4's, and tegaderm. Wound Image 01/21/2018 12:15 PM Agree With My Assessment? Yes 01/08/2018 9:36 PM Wound Base Assessment Dressing intact, base not assessed 02/03/2018 10:00 PM Surrounding Skin Assessment Intact 02/01/2018 9:05 AM Wound Site Closure [place] 02/01/2018 9:05 AM Wound Drainage Amount Scant 02/01/2018 9:05 AM Wound Drainage Description Serous 02/01/2018 9:05 AM Wound Dressing Status Intact 02/03/2018 10:00 PM Wound Dressing and / or Treatment Hydrofera Blue Ready 02/01/2018 8:40 PM Wound Length (cm) (Wound Team Only) 20 cm 02/01/2018 9:05 AM Wound Width (cm) (Wound Team Only) 2 cm 02/01/2018 9:05 AM Wound Depth (cm) (Wound Team Only) 0.1 02/01/2018 9:05 AM Wound Volume (cm^3) (Wound Team Only) 4 cm^3 02/01/2018 9:05 AM Wound Healing % (Wound Team Only) 61.9 02/01/2018 9:05 AM Number of days: 66 Wounds (NOT for Pressure Injuries) 11/30/17 1427 Right;Anterior Neck Surgical Incision (Active) 11/30/17 1427 Neck Wound Orientation: Right;Anterior Wound Type: Surgical Incision Wound Type:: Wound Description (Comments): Number of days: 66 Wounds (NOT for Pressure Injuries) 12/14/17 1748 Left Abdomen Ulcer (not from pressure) (Active) 12/14/17 1748 Abdomen Wound Orientation: Left Wound Type: Ulcer (not from pressure) Wound Type:: Wound Description (Comments): Wound Image 01/17/2018 10:00 AM Agree With My Assessment? Except 12/30/2017 2:45 PM Wound Base Assessment Dressing intact, base not assessed 02/03/2018 10:00 PM Surrounding Skin Assessment Intact;Induration 02/01/2018 9:05 AM Wound Site Closure None 02/01/2018 9:05 AM Wound Drainage Amount Scant 02/01/2018 9:05 AM Wound Drainage Description Serous 02/01/2018 9:05 AM Wound Dressing Status Intact 02/03/2018 10:00 PM Wound Dressing and / or Treatment Hydrofera Blue Ready 02/03/2018 10:00 AM Wound Length (cm) (Wound Team Only) 5 cm 02/01/2018 9:05 AM Wound Width (cm) (Wound Team Only) 21 cm 02/01/2018 9:05 AM Wound Depth (cm) (Wound Team Only) 0.1 02/01/2018 9:05 AM Wound Volume (cm^3) (Wound Team Only) 10.5 cm^3 02/01/2018 9:05 AM Wound Healing % (Wound Team Only) -25 02/01/2018 9:05 AM Number of days: 52 Wounds (NOT for Pressure Injuries) 12/20/17 1530 Right;Lower Abdomen Moisture Associated Skin Damage (Active) 12/20/17 1530 Abdomen Wound Orientation: Right;Lower Wound Type: Moisture Associated Skin Damage Wound Type:: Wound Description (Comments): Agree With My Assessment? Yes 01/06/2018 8:00 PM Wound Base Assessment Clean;Moist 02/03/2018 10:00 PM Surrounding Skin Assessment Dry;Intact;[place] 02/03/2018 10:00 PM Wound Site Closure Open to Air 01/30/2018 7:50 AM Wound Drainage Amount None 02/03/2018 10:00 PM Wound Drainage Description Serous 01/14/2018 9:08 AM Wound Dressing Status Changed 02/03/2018 10:00 AM Wound Dressing and / or Treatment [employer] 02/03/2018 10:00 PM Number of days: 46 Wounds (NOT for Pressure Injuries) 12/23/17 1345 Left Labia (Active) 12/23/17 1345 Labia Wound Orientation: Left Wound Type: Wound Type:: Wound Description (Comments): Agree With My Assessment? Yes 01/07/2018 9:55 PM Wound Base Assessment Slough 02/03/2018 10:00 PM Surrounding Skin Assessment [place] 02/03/2018 10:00 PM Wound Site Closure Open to Air 01/31/2018 8:47 PM Wound Drainage Amount Scant 02/03/2018 10:00 PM Wound Drainage Description Serous 02/01/2018 8:40 PM Wound Dressing Status Intact 02/03/2018 10:00 PM Wound Dressing and / or Treatment Foam ([place]) 02/03/2018 10:00 AM Wound Length (cm) (Wound Team Only) 2.2 cm 02/01/2018 9:05 AM Wound Width (cm) (Wound Team Only) 1 cm 02/01/2018 9:05 AM Wound Depth (cm) (Wound Team Only) 0.1 02/01/2018 9:05 AM Wound Volume (cm^3) (Wound Team Only) 0.22 cm^3 02/01/2018 9:05 AM Wound Healing % (Wound Team Only) 88.27 02/01/2018 9:05 AM Number of days: 43 Wounds (NOT for Pressure Injuries) 12/30/17 1002 Left;Anterior Surgical Incision stump (Active) 12/30/17 1002 Wound Orientation: Left;Anterior Wound Type: Surgical Incision Wound Type:: stump Wound Description (Comments): Suture, ceci, telfa and iodine, 4x4, and tegaderm Wound Image 01/21/2018 12:15 PM Agree With My Assessment? Yes 01/06/2018 8:00 PM Wound Base Assessment Dressing intact, base not assessed 02/03/2018 10:00 PM Surrounding Skin Assessment Intact;Edema;Purple 02/01/2018 8:40 PM Wound Site Closure Wound Adhesive Bandage 02/01/2018 9:05 AM Wound Drainage Amount Scant 02/01/2018 9:05 AM Wound Drainage Description Serous 02/01/2018 9:05 AM Wound Dressing Status Intact 02/03/2018 10:00 PM Wound Dressing and / or Treatment Hydrofera Blue Ready 02/01/2018 8:40 PM Wound Length (cm) (Wound Team Only) 16 cm 02/01/2018 9:05 AM Wound Width (cm) (Wound Team Only) 28 cm 02/01/2018 9:05 AM Wound Depth (cm) (Wound Team Only) 0.1 02/01/2018 9:05 AM Wound Volume (cm^3) (Wound Team Only) 44.8 cm^3 02/01/2018 9:05 AM Wound Healing % (Wound Team Only) -31.15 02/01/2018 9:05 AM Number of days: 36 Wounds (NOT for Pressure Injuries) 01/10/18 1100 Hip Surgical Incision (Active) 01/10/18 1100 Hip Wound Orientation: Wound Type: Surgical Incision Wound Type:: Wound Description (Comments): XEROFORM, 4X4S, HYPAFIX, WOUND VAC Wound Image 01/21/2018 12:15 PM Agree With My Assessment? Except 01/24/2018 4:00 AM Wound Base Assessment Dressing intact, base not assessed 02/03/2018 10:00 PM Surrounding Skin Assessment Intact 02/03/2018 10:00 PM Wound Site Closure Wound Adhesive Bandage 02/03/2018 10:00 PM Wound Drainage Amount Copious 02/03/2018 10:00 PM Wound Drainage Description Serosanguineous 02/03/2018 10:00 PM Wound Dressing Status Intact 02/03/2018 10:00 PM Wound Dressing and / or Treatment VAC @ ___ mm/Hg 02/03/2018 10:00 PM Wound Length (cm) (Wound Team Only) 8 cm 02/01/2018 9:05 AM Wound Width (cm) (Wound Team Only) 24 cm 02/01/2018 9:05 AM Wound Depth (cm) (Wound Team Only) 27 02/01/2018 9:05 AM Wound Volume (cm^3) (Wound Team Only) 5184 cm^3 02/01/2018 9:05 AM Wound Healing % (Wound Team Only) -121.54 02/01/2018 9:05 AM Tunneling in CM (Wound Team Only) 15 cm 02/01/2018 9:05 AM Tunnelling Location 3 02/01/2018 9:05 AM Number of days: 25 Wounds (NOT for Pressure Injuries) 01/10/18 Left;Inner;Posterior Buttocks Surgical Incision (Active) 01/10/18 Buttocks Wound Orientation: Left;Inner;Posterior Wound Type: Surgical Incision Wound Type:: Wound Description (Comments): Wound Base Assessment Dressing intact, base not assessed 02/03/2018 10:00 PM Surrounding Skin Assessment Intact;Edema 02/01/2018 9:05 AM Wound Site Closure Ceci 02/01/2018 9:05 AM Wound Drainage Amount Scant 02/01/2018 9:05 AM Wound Drainage Description Serosanguineous 02/01/2018 9:05 AM Wound Dressing Status Intact 02/03/2018 10:00 PM Wound Dressing and / or Treatment Hydrofera Blue Ready 02/01/2018 9:05 AM Wound Length (cm) (Wound Team Only) 5 cm 02/01/2018 9:05 AM Wound Width (cm) (Wound Team Only) 13 cm 02/01/2018 9:05 AM Wound Depth (cm) (Wound Team Only) 0.1 02/01/2018 9:05 AM Wound Volume (cm^3) (Wound Team Only) 6.5 cm^3 02/01/2018 9:05 AM Number of days: 25 [REMOVED] Pressure Injury 01/14/18 1730 Right Ear Unstageable (Removed) 01/14/18 1730 Ear Pressure Injury Orientation: Right Pressure Injury Stages: Unstageable Pressure Injury Present On Admission: Y If this pressure injury is suspected to be device related, please select the device:: Tubing (Oxygen / Wound Vac / Drain) Removed 01/23/18 1843 Wound Dressing Status Open to Air 01/23/2018 8:25 PM Wound Drainage Amount None 01/23/2018 8:25 PM Wound Base Assessment [place] 01/23/2018 8:25 PM Surrounding Skin Assessment Dry;Intact 01/23/2018 8:25 PM [REMOVED] Ileal Conduit 12/30/17 1115 Left (Removed) 12/30/17 1115 Left Removed 12/30/17 1607 Colostomy 12/30/17 1209 Right (Active) 12/30/17 1209 Right Agree With My Assessment? Except 01/24/2018 4:00 AM Stoma Assessment Red;[place] 02/02/2018 9:00 AM Drainage Description Brown 02/04/2018 12:00 AM Peristomal Skin Assessment Dry;Intact 02/04/2018 12:00 AM Dressing Status Clean;Dry;Intact 02/04/2018 12:00 AM Stoma Miscellaneous Other (Comment) 01/28/2018 8:00 AM Drain Output (ml) 100 ml 02/03/2018 9:15 AM Wound Care Team to follow, as will I. Thank you for this consultation of this patient. Some progression toward healing and improvement in the wound milieu. Continue current treatment plan. * Marco Payne MD - 02/04/2018 10:37 AM CDT Formatting of this note may be different from the original. Endocrinology Progress Note Name: Beata Ryder Job Today's Date: 02/04/2018 Admission Date: 01/14/2018 LOS: 21 days Assessment/Plan: Principal Problem: Left hip amputation status Active Problems: Chondrosarcoma (HCC) Acute blood loss as cause of postoperative anemia Depression Anxiety DM (diabetes mellitus) (HCC) 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 Chronic pain Post-op pain Bacteremia Amputated left leg (HCC) Candiduria Assessment: 1. DM type 2 with stress hyperglycemia 2. Hypoglycemia A1c6.5, controlled CAMP TENDER regimen: Metformin 1000mg BID, [id number] mg daily Hypoglycemic episodes on this regimen: None and not checking blood sugars at home Follows up with for diabetes management:Primary care physician at [facility] Diabetic-complications assessment: Retinopathy: None Peripheral neuropathy: Yes on treatment Autonomic neuropathy:None Nephropathy: None Macrovascular complications:None Risk factor assessment: Last lipid profile - None on file On ACEi/ARB: Yes On Statin: yes 3. 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 CAMP TENDER 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 daily TSH 2.1 this admission Forgets to take her levothyroxine sometime 4. Enteral Nutrition- stopped 02/02/18 5. Left leg amputation Wound Vac 6. Hyperlipidemia On lovastatin 7. Chondorsarcoma Pelvis s/p hemipelvectomy 8. Obesity Class III Recommendations: We plan to reduce the insulin by 15 % as oral agents are now likely having more effect. This was discussed and explained with the patient BG within target goals today Continue Metformin 500 mg BID, will titrate to 1000 mg BID next week Continue Januvia 100mg daily Decrease Novolog 10 units + MDCF with meals, will monitor closely for need to decrease as Januvia reaches steady state Decrease Lantus 18 units qhs May need insulin at [place], has given others insulin pen injections, feels she' ll be able to do this for herself if needed. Continue LT4 therapy Increase to 200mcg on 01.25.2018 due to continued elevation of TSH / low range normal FT4 Repeat TSH testing in 6 weeks, March 08, 2018 On statin therapy Pt seen and discussed with Dr. Payne Subjective Beata Kaiser is a 52 y.o. female. Patient resting in bed, has pain, reports she was unable to full participate in therapy due to pain. Tolerating meals. History of Present Illness Beata Kaiser is a 52 y.o. S/p left hemipelvectomy 12/13/17 DM2 with stress hyperglycemia HgbA1C 6.5%. CAMP TENDER meds: Metformin + Jardiance / PCP in [place], [place] Review of Systems: Denies chest pain/ sob/ nausea/ vomiting/ abd cramping Medications Scheduled Meds: aspirin chewable tablet 81 mg 81 mg Oral QDAY buPROPion (WELLBUTRIN) tablet 100 mg 100 mg Oral TID busPIRone (BUSPAR) tablet 30 mg 30 mg Oral BID collagenase (SANTYL) topical ointment Topical QDAY docusate (COLACE) capsule 100 mg 100 mg Oral BID ferrous sulfate (FEOSOL, FEROSUL) tablet 325 mg 325 mg Oral TID w/ meals gabapentin (NEURONTIN) capsule 800 mg 800 mg Oral QID insulin aspart U-100 (NOVOLOG FLEXPEN) injection PEN 0-14 Units 0-14 Units Subcutaneous ACHS insulin aspart U-100 (NOVOLOG FLEXPEN) injection PEN 10 Units 10 Units Subcutaneous TID w/ meals insulin glargine (LANTUS SOLOSTAR, BASAGLAR) injection PEN 18 Units 18 Units Subcutaneous QHS lactobacillus rhamnosus GG (CULTURELLE) 15 billion cell capsule 1 capsule 1 capsule Oral BID w/meals levothyroxine (SYNTHROID) tablet 200 mcg 200 mcg Oral QDAY before breakfast lidocaine (LIDODERM) 5 % topical patch 2 patch 2 patch Topical QDAY meropenem (MERREM) IVP 500 mg 500 mg Intravenous Q6H* metFORMIN (GLUCOPHAGE) tablet 500 mg 500 mg Oral BID w/meals nortriptyline (PAMELOR) capsule 50 mg 50 mg Oral QHS oxyCODONE (ROXICODONE, OXY-IR) tablet 15 mg 15 mg Oral Once per day on Wed oxyCODONE SR (OXYCONTIN) tablet 10 mg 10 mg Oral BID pantoprazole DR (PROTONIX) tablet 40 mg 40 mg Oral QDAY(21) rivaroxaban (XARELTO) tablet 20 mg 20 mg Oral QDAY w/breakfast simvastatin (ZOCOR) tablet 20 mg 20 mg Oral QHS sitaGLIPtin (JANUVIA) tablet 100 mg 100 mg Oral QDAY sodium chloride PF 0.9% flush 20 mL 20 mL Intravenous FLUSH TID vancomycin (VANCOCIN) 1,250 mg in dextrose 5% (D5W) IVPB 1,250 mg Intravenous Q12H* vancomycin, pharmacy to manage 1 each Service Per Pharmacy WATER FOR INJECTION, STERILE IJ SOLN (Cabinet Override) NOW Continuous Infusions: PRN and Respiratory Meds:acetaminophen Q6H PRN, alum/mag hydroxide/simeth Q6H PRN, calcium carbonate Q4H PRN, milk of magnesia (CONC) Q4H PRN, ondansetron ( ZOFRAN) IV Q6H PRN, oxyCODONE Q4H PRN, pancrelipase 20,000 Units/ sodium bicarbonate 650 mg(#) PRN (Catalogue Librarian from Rx) Objective: Vital Signs: Last Filed Vital Signs: 24 Hour Range BP: 121/65 (02/04 822) Temp: 36.5 C (97.7 F) (02/04 822) Pulse: 111 (02/04 822) Respirations: 20 PER MINUTE (02/04 822) SpO2: 97 % (02/04 822) O2 Delivery: None (Room Air) (02/04 822) BP: (106-143)/(56-68) Temp: [36.4 C (97.5 F)-37.3 C (99.1 F)] Pulse: [107-126] Respirations: [18 PER MINUTE-20 PER MINUTE] SpO2: [92 %-99 %] O2 Delivery: None (Room Air) Intensity Pain Scale 0-10 (Pain 1): 10 (02/04/18 0810) Vitals: 02/02/18 0440 02/03/18 0400 02/04/18 0711 Weight: 92.3 kg (203 lb 7.8 oz) 91.7 kg (202 lb 2.6 oz) 104 kg (229 lb 4.5 oz) Intake/Output Summary: (Last 24 hours) Intake/Output Summary (Last 24 hours) at 02/04/18 1037 Last data filed at 02/04/18 0800 Gross per 24 hour Intake 590 ml Output 4275 ml Net -3685 ml Stool Occurrence: 1 Physical Exam General: Alert, cooperative, appears tired, no distress, appears stated age Eyes: Conjunctivae/corneas clear. ENT: Moist mucous membranes Lungs: Breathing comfortably on RA Extremities: Left jamil-pelvectomy TECHNICAL SOLUTION ARCHITECT: Nonfocal, moves all extremities Lab Review General Chemistry: Lab Results Component Value Date NA 137 02/04/2018 K 4.1 02/04/2018 CL 103 02/04/2018 GAP 4 02/04/2018 BUN 14 02/04/2018 CR 0.59 02/04/2018 GLU 123 02/04/2018 CA 8.8 02/04/2018 ALBUMIN 2.3 02/04/2018 LACTIC 1.4 01/21/2018 OBSCA 1.07 12/19/2017 MG 1.8 01/03/2018 TOTBILI 0.2 02/04/2018 , Endocrine: Lab Results Component Value Date TSH 10.130 01/25/2018 , HgbA1C: Lab Results Component Value Date HGBA1C 6.5 12/28/2017 and Lipid Profile: Lab Results Component Value Date TRIG 254 01/13/2018 Glucose, POC Date/Time Value Ref Range Status 02/04/2018 0711 118 (H) 70 - 100 MG/DL Final 02/03/2018 2126 155 (H) 70 - 100 MG/DL Final 02/03/2018 1849 83 70 - 100 MG/DL Final 02/03/2018 1730 95 70 - 100 MG/DL Final 02/03/2018 1509 167 (H) 70 - 100 MG/DL Final 02/03/2018 1200 121 (H) 70 - 100 MG/DL Final 02/03/2018 0713 86 70 - 100 MG/DL Final 02/02/2018 2141 134 (H) 70 - 100 MG/DL Final Point of Care Testing (Last 24 hours) Glucose: (!) 123 (02/04/18 0550) POC Glucose (Download): (!) 118 (02/04/18 0711) Radiology and other Diagnostics Review: No pertinent radiology. Thank you for the opportunity to participate in this pt's care Please page with any questions or concerns Milly Clarke APRN Pager [phone] Office: [phone] ATTESTATION I personally performed the banuelos portions of the E/M visit, discussed case with resident and concur with resident documentation of history, physical exam, assessment, and treatment plan unless otherwise noted. I personally performed the banuelos portions of the E/M visit, discussed case with Nurse Practitioner and concur with documentation of history, physical exam, assessment, and treatment plan unless otherwise noted. Staff name: Marco Payne MD Date: 02/04/2018 * Jaclyn Yang - 02/04/2018 8:10 AM CDT Nurse set of supplies and patient changed colostomy bag and cleaned the site. Patient needed assistance attaching the bag properly. Patient complete about 75 % of her colostomy bag change. * Indy Isabel MD - 02/03/2018 6:45 PM CDT Infectious Diseases Progress Note Attempted to see pt in Rehab- off unit for hyperbaric tx. I reviewed labs and discussed w nursing. She is overall stable and participating in Rehab. WBC is nl on 02/02 and Cr is stable on 02/03. FU BC negative. She has occ low grade temp - etiology is uncertain. I don't suspect urine, line or pna at this time. Temps must be related to wound although no overt cellulitis. Will cont current atbx for now. Will repeat CBC and LFT in am (ordered) Indy Isabel MD * Darlene Garcia, SANJAY - 02/03/2018 6:23 PM CDT Pt returned from Hyperbaric unit per cart with [facility] transporters. Pt having significant phantom limb pain, so pain meds given after pt assisted back to bed. * Tamara Reilly - 02/03/2018 6:16 PM CDT Patient has returned to the unit at this time via [facility] stretcher van. * Leia Zimmerman - 02/03/2018 3:41 PM CDT CLINICAL NUTRITION Clinical Nutrition Follow-Up Summary Nutrition Assessment of Patient: Malnutrition Assessment: Adequately nourished prior to admission Current Oral Intake: Adequate Estimated Calorie Needs: 1660 (30kcal/kg of dw 55kg) Estimated Protein Needs: 100-120 (1.5-2.2g/kg of dw 55kg) Oral Diet Order: Diabetic 7692-0650 Kcal/day (60 g Carb/meal, 30 g Carb/HS snack ) Oral Supplement: Boost Glucose Control, BID, Prosource 52 yof admitted to [facility] 01/14/18 s/p L hemipelvectomy 12/14 due to pelvic mass/ chondrosarcoma. PMH of DM (A1c 6.5) and depression. Pt with stool soilage issues prohibiting wound healing had colostomy 12/30. TPN was added to enhance nutrition followed by supplemental EN. I&D with wound vac 01/10; continues. HBOT tx x 20 for wound healing started this week; M-F. EN dc'd 02/02 with pt meeting goals via oral intake x 12+ days. Pt continues to report a good appetite. Intakes continue to be adequate at 80-100% x last 3 meals. Documentation of only one Boost GC and Prosource daily. Reviewed order with RN and continued encouragement of intake with pt. Pt with stress induced hyperglycemia with h/o well controlled DM. Currently with better control on Metformin, Januvia, and insulin regimen; BG POC 167. Unknown at this time if pt will require insulin on discharge; DM educator pending plan. Pt with good ostomy output noted. Culturelle on board. Weight is stable x 5 days; down from admit and reflective in net I/O total of -37L. No other concerns at this time. Recommendation: Continue current diet order with 2 Pkts Prosource and 2 Boost Glucose drinks daily. Please spread out protein supplements throughout day for best absorption. Intervention / Plan: f/u with DM diet review offer Continued encouragement to meet protein goals with supplements included Discussed protein goals with RN Monitor PO Intake, wt, labs, skin, gi, meds, fluids Nutrition Diagnosis: Nutrition Diagnosis: Increased nutrient needs, specify: Etiology: protein: demand for wound healing Signs & Symptoms: s/p hemipelvectomy Goals: PO intake to meet >85% nutritional needs Time Frame: Prior to Discharge Status: Met;Ongoing Leia Zimmerman RD, LD *[id number] * Tamara Reilly - 02/03/2018 2:54 PM CDT Patient has left the unit at this time for hyperbaric [place] via [employer] van. * Ruth Allen MD - 02/03/2018 2:29 PM CDT Formatting of this note may be different from the original. ATTESTATION I personally performed the banuelos portions of the E/M visit, discussed case with resident and concur with resident documentation of history, physical exam, assessment, and treatment plan unless otherwise noted. This is a late entry for E/M services provided on 02/03/18. Staff name: Ruth Allen MD Date: 02/07/2018 Physical Medicine & Rehabilitation Progress Note Today's Date: 02/03/2018 Admission Date: 01/14/2018 LOS: 20 days Insurance: [facility] Principal Problem: Left hip amputation status Active Problems: Chondrosarcoma (HCC) Acute blood loss as cause of postoperative anemia Depression Anxiety DM (diabetes mellitus) (HCC) 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 Chronic pain Post-op pain Bacteremia Amputated left leg (HCC) Candiduria Assessment/Plan: Beata Lema a 52 y.o.female[facility] the following issues : 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 Patient will need a modified schedule of 15 hours over 7 days to accommodate HBOT schedule. Goals: household mobility at wheelchair level min A Tentative discharge date: 02/28/18 Recommended therapy after discharge: home health OT/PT Recommended equipment: Hospital bed, wheelchair/cushion, slideboard, ramp - Patient requires hospital bed at discharge. Patient requires positioning of the body in ways not feasible with ordinary beds to in order to alleviate pain. Patient requires frequent repositioning of the body and/or has an immediate need for change in body position. Daily Functional Update: Transfers Device Sit to Stand Transfer: Assistive Device: Sliding Board (02/03/2018 8:45 AM) No Data Recorded Gait Device Assist Required Distance Gait: Assistive Device: IV Pole (12/01/2017 11:00 AM) No Data Recorded Gait Distance: 400 feet (12/01/2017 11:00 AM) Toileting Assist Required Equipment Toilet Transfer Toileting Assist: Total Assist (01/06/2018 1:00 PM) No Data Recorded No Data Recorded Dressing Lower Body LE Dressing Assist: Total Assist (02/03/2018 8:45 AM) Chrondrosarcoma s/p hemipelvectomy and hemisacrectomy Lymphedema wound and residual limb >wound vac in place. Changes M/W/F by wound vac team. PO 15mg oxycodone MWF for [place] changes + lidocaine into sponge during acute hospitalization - weaned off IV pain meds >Change dressings prn with dry sterile gauze and hypafix tape >vitamin A &D for labia wound, collagenase for left lower abdomen wound healing >Per plastic surgery note 01/24 not recommending further surgical intervention at this time >01/31 Pt had trial of HBOT which she tolerated well >Plan on 20 treatment of HBOT M-F in late afternoon Post-op pain in setting of chronic pain Phantom limb pain, neuropathic pain >Tylenol, oxycontin 10mg BID and oxycodone 20mg q3h prn. Lidoderm patch prn. > Continue nortriptyline 50mg QHS (increased 01/27) > Continue gabapentin 800mg Q6h s/p diverting colostomy - Stool saturating wound. Diverting colostomy done 12/30 >wound/ostomy consulted, working on education with nursing Bladder injury, recent repair - bladder and urethral injuries during hemipelvectomy on 12/14/17 - underwent cystoscopy with left ureteral stent insertion, Bladder neck repair, Urethroplasty and repair of urethral injury, Vaginal closure >continue melchor catheter > Urology f/u after rehab discharge Chest lesions (metastases?) - 11/26/17 CT: few small pulmonary nodules. >plan is to resect the masses in the chest later >CT chest scheduled for 02/08 with f/u with CTS surgery - may need to reschedule GBS bacteremia w/ sepsis due to left hip wound - Fever and leukocytosis began 12/20/17, Bcx 1/2 positive for GBS on 12/23 -Fever 01/21 - blood cx and urine cx NGTD >Completed course of abx 01/23 ertapenem > Multiple fevers 01/26 in pm, started Vanc/Meropenem and obtained blood cx x2 and UA/reflex cx - 09/21 bcx contaminated, rest NGTD > Repeat blood cx's 03/03 NGTD > Duration of IV abx TBD DVT - 11/30/17 IVC filter for DVT within the external iliac vein >cont Xarelto ABLA - Transfusion 01/15 and 01/28 1U PRBC - monitor labs T2DM - A1c 6.5%, controlled - CAMP TENDER regimen: Metformin thousand milligrams twice a day, [id number] mg daily >Continue with Lantus 20 units QHS, novolog 14u postmeal, MDCF 5x per day 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 - CAMP TENDER 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 daily - TSH 2.1 this admission >levothyroxine increased 200 mcg on 01/26 >She will need repeat thyroid function tests in 6-8 weeks (~March 08) Major depressive disorder, recurrent, moderate CLAUDIA Adjustment disorder with mixed anxiety and depressed mood > continue CAMP TENDER Wellbutrin and buspar, started on nortriptyline this admission Nutrition - 01/31 albumin 2.4, Prealbumin 10.0, recheck 02/07 -Pt is currently meeting caloric and protein needs > weekly prealbumin and albumin - remains low > D/c corpak 02/02 > Continue current diet with protein supplementation HLD: holding CAMP TENDER statin Insomnia: nortriptyline 50mg qhs DVT Prophylaxis:Xarelto, will discharge on it Subjective No issues/events overnight. Pt resting in bed when seen on rounds. Pt happy to have her coprapk out. Pt became nauseous for a short period of time after HBOT but otherwise is tolerating it well. Pain well controlled Objective Vital Signs: Last Filed Vital Signs: 24 Hour Range BP: 130/68 (02/04 1200) Temp: 36.4 C (97.5 F) (02/03 1200) Pulse: 115 (02/03 1200) Respirations: 20 PER MINUTE (02/03 1200) SpO2: 99 % (02/04 1200) O2 Delivery: None (Room Air) (02/04 1200) BP: (96-130)/(51-68) Temp: [36.4 C (97.5 F)-37.2 C (98.9 F)] Pulse: [107-120] Respirations: [18 PER MINUTE-20 PER MINUTE] SpO2: [95 %-99 %] O2 Delivery: None (Room Air) Intensity Pain Scale 0-10 (Pain 1): 8 (02/03/18 1000) Vitals: 01/30/18 0558 02/02/18 0440 02/03/18 0400 Weight: 90.4 kg (199 lb 4.7 oz) 92.3 kg (203 lb 7.8 oz) 91.7 kg (202 lb 2.6 oz) Intake/Output Summary: (Last 24 hours) Intake/Output Summary (Last 24 hours) at 02/03/18 1429 Last data filed at 02/03/18 1400 Gross per 24 hour Intake 1550 ml Output 4700 ml Net -3150 ml Stool Occurrence: 1 Oral Diet Order: Diabetic [id number] Kcal/day (60 g Carb/meal, 30 g Carb/HS snack ) Last BM Date: 02/02/18 Lab: Results for orders placed or performed during the hospital encounter of (from the past 24 hour(s)) POC GLUCOSE Collection Time: 02/02/18 3:22 PM # # Low-High Glucose, POC 109 (H) 70 - 100 MG/DL POC GLUCOSE Collection Time: 02/02/18 5:03 PM # # Low-High Glucose, POC 176 (H) 70 - 100 MG/DL POC GLUCOSE Collection Time: 02/02/18 9:41 PM # # Low-High Glucose, POC 134 (H) 70 - 100 MG/DL POC GLUCOSE Collection Time: 02/03/18 7:13 AM # # Low-High Glucose, POC 86 70 - 100 MG/DL POC GLUCOSE Collection Time: 02/03/18 12:00 PM # # Low-High Glucose, POC 121 (H) 70 - 100 MG/DL BASIC METABOLIC PANEL CELLULAR THERAPEUTICS Collection Time: 02/03/18 12:25 PM # # Low-High Sodium 137 137 - 147 MMOL/L Potassium 4.3 3.5 - 5.1 MMOL/L Chloride 102 98 - 110 MMOL/L CO2 28 21 - 30 MMOL/L Anion Gap 7 3 - 12 Glucose 156 (H) 70 - 100 MG/DL Blood Urea Nitrogen 15 7 - 25 MG/DL Creatinine 0.59 0.4 - 1.00 MG/DL Calcium 9.0 8.5 - 10.6 MG/DL eGFR Non >60 >60 mL/min eGFR >60 >60 mL/min Scheduled Meds: aspirin chewable tablet 81 mg 81 mg Oral QDAY buPROPion (WELLBUTRIN) tablet 100 mg 100 mg Oral TID busPIRone (BUSPAR) tablet 30 mg 30 mg Oral BID collagenase (SANTYL) topical ointment Topical QDAY docusate (COLACE) capsule 100 mg 100 mg Oral BID ferrous sulfate (FEOSOL, FEROSUL) tablet 325 mg 325 mg Oral TID w/ meals gabapentin (NEURONTIN) capsule 800 mg 800 mg Oral QID insulin aspart U-100 (NOVOLOG FLEXPEN) injection PEN 0-14 Units 0-14 Units Subcutaneous ACHS insulin aspart U-100 (NOVOLOG FLEXPEN) injection PEN 14 Units 14 Units Subcutaneous TID w/ meals insulin glargine (LANTUS SOLOSTAR, BASAGLAR) injection PEN 20 Units 20 Units Subcutaneous QHS lactobacillus rhamnosus GG (CULTURELLE) 15 billion cell capsule 1 capsule 1 capsule Oral BID w/meals levothyroxine (SYNTHROID) tablet 200 mcg 200 mcg Oral QDAY before breakfast lidocaine (LIDODERM) 5 % topical patch 2 patch 2 patch Topical QDAY meropenem (MERREM) IVP 500 mg 500 mg Intravenous Q6H* metFORMIN (GLUCOPHAGE) tablet 500 mg 500 mg Oral BID w/meals nortriptyline (PAMELOR) capsule 50 mg 50 mg Oral QHS oxyCODONE (ROXICODONE, OXY-IR) tablet 15 mg 15 mg Oral Once per day on Wed oxyCODONE SR (OXYCONTIN) tablet 10 mg 10 mg Oral BID pantoprazole DR (PROTONIX) tablet 40 mg 40 mg Oral QDAY(21) rivaroxaban (XARELTO) tablet 20 mg 20 mg Oral QDAY w/breakfast simvastatin (ZOCOR) tablet 20 mg 20 mg Oral QHS sitaGLIPtin (JANUVIA) tablet 100 mg 100 mg Oral QDAY sodium chloride PF 0.9% flush 20 mL 20 mL Intravenous FLUSH TID vancomycin (VANCOCIN) 1,250 mg in dextrose 5% (D5W) IVPB 1,250 mg Intravenous Q12H* vancomycin, pharmacy to manage 1 each Service Per Pharmacy Continuous Infusions: PRN and Respiratory Meds:acetaminophen Q6H PRN, alum/mag hydroxide/simeth Q6H PRN, calcium carbonate Q4H PRN, milk of magnesia (CONC) Q4H PRN, ondansetron ( ZOFRAN) IV Q6H PRN, oxyCODONE Q4H PRN, pancrelipase 20,000 Units/ sodium bicarbonate 650 mg(#) PRN (Catalogue Librarian from Rx) Physical Exam VS: BP 130/68 (BP Source: Arm, Left) | Pulse 115 | Temp 36.4 C (97.5 F) | Ht 160 cm (63") | Wt 91.7 kg (202 lb 2.6 oz) | LMP 01/14/2013 | SpO2 99% | BMI 35.81 kg/m Gen: awake, alert, NAD, corpak in place HEENT: left ear w/o erythema or drainage. CV: RRR, no murmur Pulm: CTAB, no w/r Abd: nondistended, nontender Extremities: mild edema rle, s/p hemipelvectomy on left with dressings and wound vac in place Psych: Pleasent mood Therapy Notes & Labs Reviewed. * Marco Payne MD - 02/03/2018 11:05 AM CDT Formatting of this note may be different from the original. Endocrinology Progress Note Name: Beata Kaiser Today's Date: 02/03/2018 Admission Date: 01/14/2018 LOS: 20 days Assessment/Plan: Principal Problem: Left hip amputation status Active Problems: Chondrosarcoma (HCC) Acute blood loss as cause of postoperative anemia Depression Anxiety DM (diabetes mellitus) (HCC) 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 Chronic pain Post-op pain Bacteremia Amputated left leg (HCC) Candiduria Assessment: 1. DM type 2 with stress hyperglycemia 2. Hypoglycemia A1c6.5, controlled CAMP TENDER regimen: Metformin 1000mg BID, [id number] mg daily Hypoglycemic episodes on this regimen: None and not checking blood sugars at home Follows up with for diabetes management:Primary care physician at [facility]-complications assessment: Retinopathy: None Peripheral neuropathy: Yes on treatment Autonomic neuropathy:None Nephropathy: None Macrovascular complications:None Risk factor assessment: Last lipid profile - None on file On ACEi/ARB: Yes On Statin: yes 3. 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 CAMP TENDER 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 daily TSH 2.1 this admission Forgets to take her levothyroxine sometime 4. Enteral Nutrition- stopped 02/02/18 5. Left leg amputation Wound Vac 6. Hyperlipidemia On lovastatin 7. Chondorsarcoma Pelvis s/p hemipelvectomy 8. Obesity Class III Recommendations: BG within target goals today Continue Metformin 500 mg BID, will titrate to 1000 mg BID next week Continue Januvia 100mg daily Continue Novolog 14 units + MDCF with meals, will monitor closely for need to increase/ decrease as Januvia reaches steady state Continue Lantus 20 units qhs She may need insulin at discharge, will have nursing start teaching insulin administration Continue LT4 therapy Increase to 200mcg on 01.25.2018 due to continued elevation of TSH / low range normal FT4 Repeat TSH testing in 6 weeks, March 08, 2018 On statin therapy Pt discussed with Dr. Payne Subjective Beata Kaiser is a 52 y.o. female. Patient working with PT, is having pain , working on deep breathing to help relieve pain. She appears tired this morning. Tolerating meals, having good output from colostomy. History of Present Illness Beata Kaiser is a 52 y.o. S/p left hemipelvectomy 12/13/17 DM2 with stress hyperglycemia HgbA1C 6.5%. CAMP TENDER meds: Metformin + Jardiance / PCP in [place], [place] Review of Systems: Denies chest pain/ sob/ nausea/ vomiting/ abd cramping Medications Scheduled Meds: aspirin chewable tablet 81 mg 81 mg Oral QDAY buPROPion (WELLBUTRIN) tablet 100 mg 100 mg Oral TID busPIRone (BUSPAR) tablet 30 mg 30 mg Oral BID collagenase (SANTYL) topical ointment Topical QDAY docusate (COLACE) capsule 100 mg 100 mg Oral BID ferrous sulfate (FEOSOL, FEROSUL) tablet 325 mg 325 mg Oral TID w/ meals gabapentin (NEURONTIN) capsule 800 mg 800 mg Oral QID insulin aspart U-100 (NOVOLOG FLEXPEN) injection PEN 0-14 Units 0-14 Units Subcutaneous ACHS insulin aspart U-100 (NOVOLOG FLEXPEN) injection PEN 14 Units 14 Units Subcutaneous TID w/ meals insulin glargine (LANTUS SOLOSTAR, BASAGLAR) injection PEN 20 Units 20 Units Subcutaneous QHS lactobacillus rhamnosus GG (CULTURELLE) 15 billion cell capsule 1 capsule 1 capsule Oral BID w/meals levothyroxine (SYNTHROID) tablet 200 mcg 200 mcg Oral QDAY before breakfast lidocaine (LIDODERM) 5 % topical patch 2 patch 2 patch Topical QDAY meropenem (MERREM) IVP 500 mg 500 mg Intravenous Q6H* metFORMIN (GLUCOPHAGE) tablet 500 mg 500 mg Oral BID w/meals nortriptyline (PAMELOR) capsule 50 mg 50 mg Oral QHS oxyCODONE (ROXICODONE, OXY-IR) tablet 15 mg 15 mg Oral Once per day on Wed oxyCODONE SR (OXYCONTIN) tablet 10 mg 10 mg Oral BID pantoprazole DR (PROTONIX) tablet 40 mg 40 mg Oral QDAY(21) rivaroxaban (XARELTO) tablet 20 mg 20 mg Oral QDAY w/breakfast simvastatin (ZOCOR) tablet 20 mg 20 mg Oral QHS sitaGLIPtin (JANUVIA) tablet 100 mg 100 mg Oral QDAY sodium chloride PF 0.9% flush 20 mL 20 mL Intravenous FLUSH TID vancomycin (VANCOCIN) 1,250 mg in dextrose 5% (D5W) IVPB 1,250 mg Intravenous Q12H* vancomycin, pharmacy to manage 1 each Service Per Pharmacy Continuous Infusions: PRN and Respiratory Meds:acetaminophen Q6H PRN, alum/mag hydroxide/simeth Q6H PRN, calcium carbonate Q4H PRN, milk of magnesia (CONC) Q4H PRN, ondansetron ( ZOFRAN) IV Q6H PRN, oxyCODONE Q4H PRN, pancrelipase 20,000 Units/ sodium bicarbonate 650 mg(#) PRN (Catalogue Librarian from Rx) Objective: Vital Signs: Last Filed Vital Signs: 24 Hour Range BP: 116/51 (02/04 832) Temp: 36.7 C (98.1 F) (02/04 832) Pulse: 115 (02/04 832) Respirations: 18 PER MINUTE (02/04 832) SpO2: 96 % (02/04 832) O2 Delivery: None (Room Air) (02/04 832) BP: (96-122)/(51-58) Temp: [36.7 C (98.1 F)-37.2 C (98.9 F)] Pulse: [107-120] Respirations: [18 PER MINUTE-20 PER MINUTE] SpO2: [95 %-97 %] O2 Delivery: None (Room Air) Intensity Pain Scale 0-10 (Pain 1): 8 (02/03/18 1000) Vitals: 01/30/18 0558 02/02/18 0440 02/03/18 0400 Weight: 90.4 kg (199 lb 4.7 oz) 92.3 kg (203 lb 7.8 oz) 91.7 kg (202 lb 2.6 oz) Intake/Output Summary: (Last 24 hours) Intake/Output Summary (Last 24 hours) at 02/03/18 1105 Last data filed at 02/03/18 0915 Gross per 24 hour Intake 740 ml Output 4450 ml Net -3710 ml Stool Occurrence: 1 Physical Exam General: Alert, cooperative, appears tired, no distress, appears stated age HEENT: CorPak in place Eyes: Conjunctivae/corneas clear. ENT: Moist mucous membranes Lungs: Clear to auscultation bilaterally Heart: Regular rate and rhythm Abdomen: Soft, non-tender, ostomy in place. Extremities: Left jamil-pelvectomy Pulses: 2+ and symmetric TECHNICAL SOLUTION ARCHITECT: Nonfocal, moves all extremities Lab Review General Chemistry: Lab Results Component Value Date NA 137 02/02/2018 K 3.8 02/02/2018 CL 102 02/02/2018 GAP 5 02/02/2018 BUN 15 02/02/2018 CR 0.68 02/02/2018 GLU 153 02/02/2018 CA 8.6 02/02/2018 ALBUMIN 2.3 01/28/2018 LACTIC 1.4 01/21/2018 OBSCA 1.07 12/19/2017 MG 1.8 01/03/2018 TOTBILI 0.2 01/28/2018 , Endocrine: Lab Results Component Value Date TSH 10.130 01/25/2018 , HgbA1C: Lab Results Component Value Date HGBA1C 6.5 12/28/2017 and Lipid Profile: Lab Results Component Value Date TRIG 254 01/13/2018 Glucose, POC Date/Time Value Ref Range Status 02/03/2018 0713 86 70 - 100 MG/DL Final 02/02/2018 2141 134 (H) 70 - 100 MG/DL Final 02/02/2018 1703 176 (H) 70 - 100 MG/DL Final 02/02/2018 1522 109 (H) 70 - 100 MG/DL Final 02/02/2018 1337 141 (H) 70 - 100 MG/DL Final 02/02/2018 1202 154 (H) 70 - 100 MG/DL Final 02/02/2018 0731 147 (H) 70 - 100 MG/DL Final 02/01/2018 2144 119 (H) 70 - 100 MG/DL Final Point of Care Testing (Last 24 hours) POC Glucose (Download): 86 (02/03/18 0713) Radiology and other Diagnostics Review: No pertinent radiology. Thank you for the opportunity to participate in this pt's care Please page with any questions or concerns Milly Clarke APRN Pager [phone] Office: [phone] ATTESTATION I personally performed the banuelos portions of the E/M visit, discussed case with Nurse Practitioner and concur with documentation of history, physical exam, assessment, and treatment plan unless otherwise noted. Case discussed with the DESIGN LEAD but not seen as she was in hyperbaric treatment when I was available. Staff name: Marco Payne MD Date: 02/04/2018 * Ruth Allen MD - 02/02/2018 2:09 PM CDT Formatting of this note may be different from the original. ATTESTATION I personally performed the banuelos portions of the E/M visit, discussed case with resident and concur with resident documentation of history, physical exam, assessment, and treatment plan unless otherwise noted. Labs and VS reviewed and stable. Recent blood cultures NGTD. Able to d/c NGT today, stop insulin with feeds as well. Endocrine adjusting DM2 meds to home regimen as able. Hgb stable, improving. Plan for M-F HBOT treatments, will need to have a modified therapy schedule over 7 days. My additions to the resident's note are in the text and highlighted in blue. Per d/w rehab team at conference, patient making progress towards goal of min A with wheelchair, slideboard, ramp, hospital bed. Tentative discharge date , extended due to progress to date, home discharge a good reality with this extended rehab stay, will need to complete HBOT as an inpatient in order to ensure adequate wound healing. Progress this week, assist of 1 to don compression shorts, tolerating up in wheelchair 30-60 minutes 2-3x/day, standing in // bars 50-70s at a time with assist of 1, working on colostomy and insulin administration with nursing. Recommending HH therapies at time of discharge from rehab, but is NOT medically stable for discharge at this time. Time spent with patient, majority spent on counseling patient/family and rest on coordination of rehab plan of care: 25 minutes Time spent coordination care/discharge in team huddle/conference: 10 minutes Total time: 35 minutes Staff name: Ruth Allen MD Date: 02/02/2018 Physical Medicine & Rehabilitation Progress Note Today's Date: 02/02/2018 Admission Date: 01/14/2018 LOS: 19 days Insurance: [facility] Principal Problem: Left hip amputation status Active Problems: Chondrosarcoma (HCC) Acute blood loss as cause of postoperative anemia Depression Anxiety DM (diabetes mellitus) (HCC) 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 Chronic pain Post-op pain Bacteremia Amputated left leg (HCC) Candiduria Assessment/Plan: Beata Lema a 52 y.o.female[facility] the following issues : 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 Patient will need a modified schedule of 15 hours over 7 days to accommodate HBOT schedule. Goals: household mobility at wheelchair level min A Tentative discharge date: 02/28/18 Recommended therapy after discharge: home health OT/PT Recommended equipment: Hospital bed, wheelchair/cushion, slideboard, ramp - Patient requires hospital bed at discharge. Patient requires positioning of the body in ways not feasible with ordinary beds to in order to alleviate pain. Patient requires frequent repositioning of the body and/or has an immediate need for change in body position. Daily Functional Update: Transfers Device Sit to Stand Transfer: Assistive Device: Sliding Board (02/01/2018 11:00 AM) No Data Recorded Gait Device Assist Required Distance Gait: Assistive Device: IV Pole (12/01/2017 11:00 AM) No Data Recorded Gait Distance: 400 feet (12/01/2017 11:00 AM) Toileting Assist Required Equipment Toilet Transfer Toileting Assist: Total Assist (01/06/2018 1:00 PM) No Data Recorded No Data Recorded Dressing Lower Body LE Dressing Assist: Total Assist (02/01/2018 9:10 AM) Chrondrosarcoma s/p hemipelvectomy and hemisacrectomy Lymphedema wound and residual limb >wound vac in place. Changes M/W/F by wound vac team. PO 15mg oxycodone MWF for [place] changes + lidocaine into sponge during acute hospitalization - weaned off IV pain meds >Change dressings prn with dry sterile gauze and hypafix tape >vitamin A &D for labia wound, collagenase for left lower abdomen wound healing >Per plastic surgery note 01/24 not recommending further surgical intervention at this time >01/31 Pt had trial of HBOT which she tolerated well >Plan on 20 treatment of HBOT M-F in late afternoon Post-op pain in setting of chronic pain Phantom limb pain, neuropathic pain >Tylenol, oxycontin 10mg BID and oxycodone 20mg q3h prn. Lidoderm patch prn. > Continue nortriptyline 50mg QHS (increased 01/27) > Continue gabapentin 800mg Q6h s/p diverting colostomy - Stool saturating wound. Diverting colostomy done 12/30 >wound/ostomy consulted, working on education with nursing Bladder injury, recent repair - bladder and urethral injuries during hemipelvectomy on 12/14/17 - underwent cystoscopy with left ureteral stent insertion, Bladder neck repair, Urethroplasty and repair of urethral injury, Vaginal closure >continue melchor catheter > Urology f/u after rehab discharge Chest lesions (metastases?) - 11/26/17 CT: few small pulmonary nodules. >plan is to resect the masses in the chest later >CT chest scheduled for 02/08 with f/u with CTS surgery - may need to reschedule GBS bacteremia w/ sepsis due to left hip wound - Fever and leukocytosis began 12/20/17, Bcx 1/2 positive for GBS on 12/23 -Fever 01/21 - blood cx and urine cx NGTD >Completed course of abx 01/23 ertapenem > Multiple fevers 01/26 in pm, started Vanc/Meropenem and obtained blood cx x2 and UA/reflex cx - 1/2 bcx contaminated, rest NGTD > Per ID will obtain repeat BCx x2 due to x1 of 2 drawn 01/26 contaminated > Duration of IV abx TBD DVT - 11/30/17 IVC filter for DVT within the external iliac vein >cont Xarelto ABLA - Transfusion 01/15 and 01/28 1U PRBC - monitor labs T2DM - A1c 6.5%, controlled - CAMP TENDER regimen: Metformin thousand milligrams twice a day, [id number] mg daily >Continue with Lantus 20 units QHS, novolog 12u postmeal, MDCF 5x per day 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 - CAMP TENDER 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 daily - TSH 2.1 this admission >levothyroxine increased 200 mcg on 01/26 >She will need repeat thyroid function tests in 6-8 weeks (~March 08) Major depressive disorder, recurrent, moderate CLAUDIA Adjustment disorder with mixed anxiety and depressed mood > continue CAMP TENDER Wellbutrin and buspar, started on nortriptyline this admission Nutrition - 01/31 albumin 2.4, Prealbumin 10.0, recheck 02/07 -Pt is currently meeting caloric and protein needs > weekly prealbumin and albumin - remains low > D/c corpak 02/02 > Continue current diet with protein supplementation HLD: holding CAMP TENDER statin Insomnia: nortriptyline 50mg qhs DVT Prophylaxis:Xarelto, will discharge on it Subjective No acute events overnight. Pt resting in bed when seen on rounds. Pt stated HBOT went well yesterday. Pt encouraged that her corpak would be removed today. Pain controlled on current regimen. Objective Vital Signs: Last Filed Vital Signs: 24 Hour Range BP: 108/55 (02/02 0754) Temp: 36.8 C (98.2 F) (02/02 1342) Pulse: 109 (02/02 0754) Respirations: 18 PER MINUTE (02/02 1342) SpO2: 95 % (02/02 0754) O2 Delivery: None (Room Air) (02/02 0754) BP: (104-110)/(52-60) Temp: [36.8 C (98.2 F)-37.6 C (99.7 F)] Pulse: [109-119] Respirations: [18 PER MINUTE] SpO2: [93 %-95 %] O2 Delivery: None (Room Air) Intensity Pain Scale 0-10 (Pain 1): 8 (02/02/18 0503) Vitals: 01/30/18 0555 01/30/18 0558 02/02/18 0440 Weight: 84.8 kg (186 lb 15.2 oz) 90.4 kg (199 lb 4.7 oz) 92.3 kg (203 lb 7.8 oz ) Intake/Output Summary: (Last 24 hours) Intake/Output Summary (Last 24 hours) at 02/02/18 1410 Last data filed at 02/02/18 0900 Gross per 24 hour Intake 1160 ml Output 1650 ml Net -490 ml Stool Occurrence: 1 Oral Diet Order: Diabetic [id number] Kcal/day (60 g Carb/meal, 30 g Carb/HS snack ) Last BM Date: 02/01/18 Lab: Results for orders placed or performed during the hospital encounter of (from the past 24 hour(s)) POC GLUCOSE Collection Time: 02/01/18 3:36 PM # # Low-High Glucose, POC 224 (H) 70 - 100 MG/DL BASIC METABOLIC PANEL CELLULAR THERAPEUTICS Collection Time: 02/01/18 4:40 PM # # Low-High Sodium 136 (L) 137 - 147 MMOL/L Potassium 3.9 3.5 - 5.1 MMOL/L Chloride 102 98 - 110 MMOL/L CO2 27 21 - 30 MMOL/L Anion Gap 7 3 - 12 Glucose 190 (H) 70 - 100 MG/DL Blood Urea Nitrogen 16 7 - 25 MG/DL Creatinine 0.55 0.4 - 1.00 MG/DL Calcium 8.2 (L) 8.5 - 10.6 MG/DL eGFR Non >60 >60 mL/min eGFR >60 >60 mL/min POC GLUCOSE Collection Time: 02/01/18 5:03 PM # # Low-High Glucose, POC 193 (H) 70 - 100 MG/DL POC GLUCOSE Collection Time: 02/01/18 9:44 PM # # Low-High Glucose, POC 119 (H) 70 - 100 MG/DL CBC CELLULAR THERAPEUTICS Collection Time: 02/02/18 6:31 AM # # Low-High White Blood Cells 7.7 4.5 - 11.0 K/UL RBC 3.88 (L) 4.0 - 5.0 M/UL Hemoglobin 10.4 (L) 12.0 - 15.0 GM/DL Hematocrit 31.0 (L) 36 - 45 % MCV 79.8 (L) 80 - 100 FL MCH 26.8 26 - 34 PG MCHC 33.6 32.0 - 36.0 G/DL RDW 19.2 (H) 11 - 15 % Platelet Count 409 (H) 150 - 400 K/UL MPV 6.6 (L) 7 - 11 FL BASIC METABOLIC PANEL CELLULAR THERAPEUTICS Collection Time: 02/02/18 6:31 AM # # Low-High Sodium 137 137 - 147 MMOL/L Potassium 3.8 3.5 - 5.1 MMOL/L Chloride 102 98 - 110 MMOL/L CO2 30 21 - 30 MMOL/L Anion Gap 5 3 - 12 Glucose 153 (H) 70 - 100 MG/DL Blood Urea Nitrogen 15 7 - 25 MG/DL Creatinine 0.68 0.4 - 1.00 MG/DL Calcium 8.6 8.5 - 10.6 MG/DL eGFR Non >60 >60 mL/min eGFR >60 >60 mL/min POC GLUCOSE Collection Time: 02/02/18 7:31 AM # # Low-High Glucose, POC 147 (H) 70 - 100 MG/DL POC GLUCOSE Collection Time: 02/02/18 12:02 PM # # Low-High Glucose, POC 154 (H) 70 - 100 MG/DL POC GLUCOSE Collection Time: 02/02/18 1:37 PM # # Low-High Glucose, POC 141 (H) 70 - 100 MG/DL Scheduled Meds: aspirin chewable tablet 81 mg 81 mg Oral QDAY buPROPion (WELLBUTRIN) tablet 100 mg 100 mg Oral TID busPIRone (BUSPAR) tablet 30 mg 30 mg Oral BID collagenase (SANTYL) topical ointment Topical QDAY docusate (COLACE) capsule 100 mg 100 mg Oral BID ferrous sulfate (FEOSOL, FEROSUL) tablet 325 mg 325 mg Oral TID w/ meals gabapentin (NEURONTIN) capsule 800 mg 800 mg Oral QID insulin aspart U-100 (NOVOLOG FLEXPEN) injection PEN 0-14 Units 0-14 Units Subcutaneous ACHS insulin aspart U-100 (NOVOLOG FLEXPEN) injection PEN 14 Units 14 Units Subcutaneous TID w/ meals insulin glargine (LANTUS SOLOSTAR, BASAGLAR) injection PEN 20 Units 20 Units Subcutaneous QHS lactobacillus rhamnosus GG (CULTURELLE) 15 billion cell capsule 1 capsule 1 capsule Oral BID w/meals levothyroxine (SYNTHROID) tablet 200 mcg 200 mcg Oral QDAY before breakfast lidocaine (LIDODERM) 5 % topical patch 2 patch 2 patch Topical QDAY meropenem (MERREM) IVP 500 mg 500 mg Intravenous Q6H* metFORMIN (GLUCOPHAGE) tablet 500 mg 500 mg Oral BID w/meals nortriptyline (PAMELOR) capsule 50 mg 50 mg Oral QHS oxyCODONE (ROXICODONE, OXY-IR) tablet 15 mg 15 mg Oral Once per day on Wed oxyCODONE SR (OXYCONTIN) tablet 10 mg 10 mg Oral BID pantoprazole DR (PROTONIX) tablet 40 mg 40 mg Oral QDAY(21) rivaroxaban (XARELTO) tablet 20 mg 20 mg Oral QDAY w/breakfast simvastatin (ZOCOR) tablet 20 mg 20 mg Oral QHS sitaGLIPtin (JANUVIA) tablet 100 mg 100 mg Oral QDAY sodium chloride PF 0.9% flush 20 mL 20 mL Intravenous FLUSH TID vancomycin (VANCOCIN) 1,250 mg in dextrose 5% (D5W) IVPB 1,250 mg Intravenous Q12H* vancomycin, pharmacy to manage 1 each Service Per Pharmacy Continuous Infusions: PRN and Respiratory Meds:acetaminophen Q6H PRN, alum/mag hydroxide/simeth Q6H PRN, calcium carbonate Q4H PRN, milk of magnesia (CONC) Q4H PRN, ondansetron ( ZOFRAN) IV Q6H PRN, oxyCODONE Q4H PRN, pancrelipase 20,000 Units/ sodium bicarbonate 650 mg(#) PRN (Catalogue Librarian from Rx) Physical Exam VS: BP 108/55 (BP Source: Arm, Left) | Pulse 109 | Temp 36.9 C (98.4 F) | Ht 160 cm (63") | Wt 92.3 kg (203 lb 7.8 oz) Comment: bed all the way down; 1 set of sheets; wound vac removed | LMP 01/14/2013 | SpO2 95% | BMI 36.05 kg/ m Gen: awake, alert, NAD, corpak in place HEENT: left ear w/o erythema or drainage. CV: RRR, no murmur Pulm: CTAB, no w/r Abd: nondistended, nontender Extremities: mild edema rle, s/p hemipelvectomy on left with dressings and wound vac in place Psych: Pleasent mood Therapy Notes & Labs Reviewed. * Christin Mckeon, SANJAY - 02/02/2018 1:18 PM CDT Discussed colostomy bag change. She would like to change collection bag every day especially if she has a large firmer BM. She has gone for hyperbaric treatment via EMR. Her has been at bedside this am discussing cares. * Marco Payne MD - 02/02/2018 11:05 AM CDT Formatting of this note may be different from the original. Endocrinology Progress Note Name: Beata Kaiser Today's Date: 02/02/2018 Admission Date: 01/14/2018 LOS: 19 days Assessment/Plan: Principal Problem: Left hip amputation status Active Problems: Chondrosarcoma (HCC) Acute blood loss as cause of postoperative anemia Depression Anxiety DM (diabetes mellitus) (HCC) 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 Chronic pain Post-op pain Bacteremia Amputated left leg (HCC) Candiduria Assessment: 1. DM type 2 with stress hyperglycemia 2. Hypoglycemia A1c6.5, controlled CAMP TENDER regimen: Metformin 1000mg BID, [id number] mg daily Hypoglycemic episodes on this regimen: None and not checking blood sugars at home Follows up with for diabetes management:Primary care physician at [facility] Diabetic-complications assessment: Retinopathy: None Peripheral neuropathy: Yes on treatment Autonomic neuropathy:None Nephropathy: None Macrovascular complications:None Risk factor assessment: Last lipid profile - None on file On ACEi/ARB: Yes On Statin: yes 3. 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 CAMP TENDER 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 daily TSH 2.1 this admission Forgets to take her levothyroxine sometime 4. Enteral Nutrition- STOPPED TODAY Has not received since 01/27/[address] Enteral feeds on order list -- Nutren 1.5 to 30ml per hour x 6 hours. 180mL total volume. Last given night. 5. Left leg amputation Wound Vac 6. Hyperlipidemia On lovastatin 7. Chondorsarcoma Pelvis s/p hemipelvectomy 8. Obesity Class III Recommendations: Restarting transition to CAMP TENDER regimen: Continue Metformin 500 mg BID, will titrate to 1000 mg BID next week Continue Januvia 100mg daily Continue Novolog 14 units + MDCF with meals, will monitor closely for need to increase Continue Lantus 20 units qhs She may need insulin at discharge, will have nursing start teaching insulin administration CorPak removed today Discontinued: NPH 12 units SQ qhs with nocturnal tube feeds + Novolog 3 units SQ qhs with nocturnal TFs Continue LT4 therapy Increase to 200mcg on 01.25.2018 due to continued elevation of TSH / low range normal FT4 Repeat TSH testing in 6 weeks, March 08, 2018 On statin therapy Pt seen and discussed with Dr. Payne Subjective Beata Kaiser is a 52 y.o. female. Patient just received a bed bath this am , resting in bed during our visit. Tolerating meals. History of Present Illness Beata Kaiser is a 52 y.o. S/p left hemipelvectomy 12/13/17 DM2 with stress hyperglycemia HgbA1C 6.5%. CAMP TENDER meds: Metformin + Jardiance / PCP in [place], [place] Review of Systems: Denies chest pain/ sob/ nausea/ vomiting/ abd cramping Medications Scheduled Meds: aspirin chewable tablet 81 mg 81 mg Oral QDAY buPROPion (WELLBUTRIN) tablet 100 mg 100 mg Oral TID busPIRone (BUSPAR) tablet 30 mg 30 mg Oral BID collagenase (SANTYL) topical ointment Topical QDAY docusate (COLACE) capsule 100 mg 100 mg Oral BID ferrous sulfate (FEOSOL, FEROSUL) tablet 325 mg 325 mg Oral TID w/ meals gabapentin (NEURONTIN) capsule 800 mg 800 mg Oral QID insulin aspart U-100 (NOVOLOG FLEXPEN) injection PEN 0-14 Units 0-14 Units Subcutaneous ACHS insulin aspart U-100 (NOVOLOG FLEXPEN) injection PEN 14 Units 14 Units Subcutaneous TID w/ meals insulin glargine (LANTUS SOLOSTAR, BASAGLAR) injection PEN 20 Units 20 Units Subcutaneous QHS lactobacillus rhamnosus GG (CULTURELLE) 15 billion cell capsule 1 capsule 1 capsule Oral BID w/meals levothyroxine (SYNTHROID) tablet 200 mcg 200 mcg Oral QDAY before breakfast lidocaine (LIDODERM) 5 % topical patch 2 patch 2 patch Topical QDAY meropenem (MERREM) IVP 500 mg 500 mg Intravenous Q6H* metFORMIN (GLUCOPHAGE) tablet 500 mg 500 mg Oral BID w/meals nortriptyline (PAMELOR) capsule 50 mg 50 mg Oral QHS oxyCODONE (ROXICODONE, OXY-IR) tablet 15 mg 15 mg Oral Once per day on Wed oxyCODONE SR (OXYCONTIN) tablet 10 mg 10 mg Oral BID pantoprazole DR (PROTONIX) tablet 40 mg 40 mg Oral QDAY(21) rivaroxaban (XARELTO) tablet 20 mg 20 mg Oral QDAY w/breakfast simvastatin (ZOCOR) tablet 20 mg 20 mg Oral QHS sitaGLIPtin (JANUVIA) tablet 100 mg 100 mg Oral QDAY sodium chloride PF 0.9% flush 20 mL 20 mL Intravenous FLUSH TID vancomycin (VANCOCIN) 1,250 mg in dextrose 5% (D5W) IVPB 1,250 mg Intravenous Q12H* vancomycin, pharmacy to manage 1 each Service Per Pharmacy Continuous Infusions: PRN and Respiratory Meds:acetaminophen Q6H PRN, alum/mag hydroxide/simeth Q6H PRN, calcium carbonate Q4H PRN, milk of magnesia (CONC) Q4H PRN, ondansetron ( ZOFRAN) IV Q6H PRN, oxyCODONE Q4H PRN, pancrelipase 20,000 Units/ sodium bicarbonate 650 mg(#) PRN (Catalogue Librarian from Rx) Objective: Vital Signs: Last Filed Vital Signs: 24 Hour Range BP: 108/55 (02/02 754) Temp: 36.9 C (98.4 F) (02/02 754) Pulse: 109 (02/02 754) Respirations: 18 PER MINUTE (02/02 754) SpO2: 95 % (02/02 754) O2 Delivery: None (Room Air) (02/02 754) BP: (104-156)/(52-74) Temp: [36.6 C (97.9 F)-37.9 C (100.2 F)] Pulse: [109-130] Respirations: [16 PER MINUTE-18 PER MINUTE] SpO2: [93 %-97 %] O2 Delivery: None (Room Air) Intensity Pain Scale 0-10 (Pain 1): 8 (02/02/18 0503) Vitals: 01/30/18 0555 01/30/18 0558 02/02/18 0440 Weight: 84.8 kg (186 lb 15.2 oz) 90.4 kg (199 lb 4.7 oz) 92.3 kg (203 lb 7.8 oz ) Intake/Output Summary: (Last 24 hours) Intake/Output Summary (Last 24 hours) at 02/02/18 1105 Last data filed at 02/02/18 0900 Gross per 24 hour Intake 1435 ml Output 3000 ml Net -1565 ml Stool Occurrence: 1 Physical Exam Performed by physician Lab Review General Chemistry: Lab Results Component Value Date NA 137 02/02/2018 K 3.8 02/02/2018 CL 102 02/02/2018 GAP 5 02/02/2018 BUN 15 02/02/2018 CR 0.68 02/02/2018 GLU 153 02/02/2018 CA 8.6 02/02/2018 ALBUMIN 2.3 01/28/2018 LACTIC 1.4 01/21/2018 OBSCA 1.07 12/19/2017 MG 1.8 01/03/2018 TOTBILI 0.2 01/28/2018 , Endocrine: Lab Results Component Value Date TSH 10.130 01/25/2018 , HgbA1C: Lab Results Component Value Date HGBA1C 6.5 12/28/2017 and Lipid Profile: Lab Results Component Value Date TRIG 254 01/13/2018 Glucose, POC Date/Time Value Ref Range Status 02/02/2018 0731 147 (H) 70 - 100 MG/DL Final 02/01/2018 2144 119 (H) 70 - 100 MG/DL Final 02/01/2018 1703 193 (H) 70 - 100 MG/DL Final 02/01/2018 1536 224 (H) 70 - 100 MG/DL Final 02/01/2018 1346 273 (H) 70 - 100 MG/DL Final 02/01/2018 1202 255 (H) 70 - 100 MG/DL Final 02/01/2018 0719 111 (H) 70 - 100 MG/DL Final 02/01/2018 0349 125 (H) 70 - 100 MG/DL Final Point of Care Testing (Last 24 hours) Glucose: (!) 153 (02/02/18 0631) POC Glucose (Download): (!) 147 (02/02/18 0731) Radiology and other Diagnostics Review: No pertinent radiology. Thank you for the opportunity to participate in this pt's care Please page with any questions or concerns Milly Clarke APRN Pager [phone] Office: [phone] ATTESTATION I personally performed the banuelos portions of the E/M visit, discussed case with Nurse Practitioner and concur with documentation of history, physical exam, assessment, and treatment plan unless otherwise noted. The patient is awake alert and comfortable this morning. She denies nausea or vomiting. She has not had hypoglycemia. No abdominal pain. Recent Labs 02/01/18 1202 02/01/18 1346 02/01/18 1536 02/01/18 1703 02/01/18 2144 02/02/18 0731 02/02/18 1202 02/02/18 1337 GLUPOC 255* 273* 224* 193* 119* 147* 154* 141* Physical examination. General: The patient appears well an in no distress Vital signs: The vital signs were reviewed and were normal HEENT: The head is atraumatic and normocephalic. There is no proptosis. The sclera are clear. The pupils are equal and react to light. The extra occular movements are intact. Oral Pharynx: The dental hygiene is good without concerning areas. The oral pharynx is clear Neck: The thyroid is normal in size without nodule, tenderness or surrounding adenopathy. Resp: The lungs are clear without rales, rhonchi or wheezes. CV: The exam reveals a regular rate and rhythm without murmur or gallop. Assessment I agree with the assessment above. Type 2 diabetes mellitus Her control is improved with the increase in novolog to 14 units prior to meals We will continue close observation and adjust as indicated We have restarted oral agents as she had been controlled on them in the past without insulin We explained the patient that given the stress of infection she may continue to require insulin at this time but will likely in the future return to oral agents. We will continue to follow. Staff name: Marco Payne MD Date: 02/02/2018 * Cherri Kinney, PhD - 02/02/2018 8:30 AM CDT [id number] Pt was seen for follow-up and cog rescreening with present, with pts consent. Dr. Kinney was also present and participated. Pt was alert, oriented, and open/responsive to inquiry. The utility of testing was discussed and pt agreed to participate. Pt was cooperative and appeared to put forth adequate effort. Speech was monotonous, and thought processes were connected and logical to content of conversation. Eye contact was within social norms and non-verbal behaviors were appropriate to context. Mood and affect were congruent and down. Pt reported that she has been feeling somewhat "anxious" stating that she becomes worried about the medical procedures when she is not fully informed. Pt' s described the pt as eager to resume activities such as walking and going outside. Although, pt agreed that she is eager, she has also stated that she does experience worries and frustration related to pain as she is attempting to resume to activities, such as sitting in the wheelchair. Pt also noted that she would like a more concrete timeline about having her feeding tube removed. She also would like more detailed information about the procedures. She also would like be more active during the weekends, however, noted that she needs assistance with this. Screen of anxiety symptomology was readministered with results indicating no significant anxiety symptomology (CLAUDIA-7=1) with pt endorsing only symptom of nervousness for several days in the last 2 weeks. Compared to 01/25/2018, pts endorsement of anxiety symptoms has not significantly changed (CLAUDIA-7=3). Mood screen of depressive symptomology was readministered with results indicating no significant depressive symptomology (PHQ-9=3) and pt endorsed sleep difficulties nearly every day in the last 2 weeks. Compared to 01/25/2018, pts endorsement of depressive symptoms has decreased (PHQ-9=9). Screening feedback was provided to pt and pt was open and receptive to feedback. Pt's coping strategies were reinforced and reviewed. Coping strategies of relaxed breathing were introduced and practiced with pt. Pt was provided psychoeducation related to pain and medication, and relaxed breathing strategies were discussed related to pain management. Pts progress, utilization of coping skills, and goals for rehab therapies were supported. Will continue to follow and assess cognition, mood, pain management, and coping. Diagnosis: F33.4 Major depressive disorder, recurrent, in partial remission; F41.9 Anxiety (pt currently within normal limits on screeners) Recommendations: 1. Pt may benefit from reminders or cues to use coping strategies such as relaxed breathing. 2. Pt expressed interest in more receiving more detailed information about medical procedures and medication management (e.g. When feeding tube can be removed, what to do on weekends when not in therapy). Wandy Cross M.A. Neurorehabilitation Psychology Bioinformatics Support Specialist ATTESTATION: I participated in and discussed this session and pt's care with the transonic engineer and agree with her note and recs as amended (in blue) above. We will continue to follow prn until [facility] d/c. Warren Kinney, PhD, ABPP * Indy Isabel MD - 02/01/2018 2:02 PM CDT Formatting of this note may be different from the original. Infectious Diseases Progress Note Today's Date: 02/01/2018 Admission Date: 01/14/2018 Assessment: Coag neg staph bacteremia- likely contaminant 01/26 PIC- neg 01/26 BC peripheral- Coag neg Low grade fever 01/21-improved/resolved and then recurrent 01/26 - Eschar of wound w/fat necrosis, ongoing sweats, no other new s/s -01/21 UA- 2-10 WBC, no culture -01/21 BC neg -01/21 KUB- -01/24- plastic eval of wounds- no surgical intervention given lyphedematous tissue, wound team, ongoing areas of dehiscence/eschar 01/26- coag neg (peripheral) , neg PIC 01/26 UA - 0-2 WBC-=urine culture neg 01/31 BC X 2 Non-healing surgical wounds 01/31- Hiberbaric tx started Transaminitis-improved 01/24 - LFT elevated 104/97 01/25 LFT improved 41/68 # GBS bacteremia w sepsis- source suspected left hip wound, less likely pna - Fever and leukocytosis began 12/20/17 - 4/3 L lower lobe infiltrate - read as atelectasis - 12/20 C. diff negative - 12/23 Bcx 09/21 set group B streptococcus; source seems most likely intra-pelvic; 12/24 bcx negative - CT pelvis 12/25: "Ill-defined fluid and air along the anterior margin of the surgical site away from the drain tip. However, no discrete drainable fluid collection is noted. - OR 01/10 for wound eval - no sign of infection - posterior wound starting to granulate, W[place] started # Candiduria-resolved - 12/21/17 UA: wbc 2-10, negative nitrite, 1+ luukocytes, Culture > 100,000 Liliana sp - Sensitivities not done, unsure if fluconazole susceptible; repeat urine culture negative 12/28 but improved with micafungin so is suspicion for fluconazole resistance - Treating given indwelling melchor and inability to remove melchor d/t recent bladder repair - ? Candidal intertrigo - groin/mons - Cath change in OR 01/10 - no bladder leak at that time - Micafungin course completed 01/16 # s/p hemipelvectomy for Chondrosarcoma - 11/25/17 MRI: a large lesion throughout the entire left hemipelvis that appeared to be centered within the ilium - 11/30/17 open biopsy: Chondrosarcoma - 11/26/17 CT: few small pulmonary nodules. will resect the masses in the chest later - admission 12/13/17- - 12/14/17: left hemipelvectomy, jamil sacrectomy. Complicated with bladder and urethral injury. Added Cystoscopy with left ureteral stent insertion, Bladder neck repair, Urethroplasty and repair of urethral injury, Vaginal closure. - Stool saturating wound. Diverting colostomy done 12/30. - 01/06 CT: left hemipelvectomy, edema w/in the operative bed- not changed except sl more gas, more focal gas/fluid alonger anterior/inferior and superior surgical margins. # DVT - 11/30/17 IVC filter for DVT within the external iliac vein # Obese # HTN # DM # 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 # Depression # Generalized pain # abx allergy - allergic history to Cephalexin 'years ago' with skin rash and hot flash - tolerated Penicillin when she had dental caries -tolerates carbpenem Recommendations: 1. Continue Vanco and Meropenem 2. Vanco trough 10-15 3. FU repeat BC 4. While on Vanco check BMP at least 3 X weekly Complexity of medical decision making is high b/c of the multi-system nature of the infectious disease process and concerns about the complexity of the patient illness including the sensitivity of the organisms being treated, the potential for drug toxicity and interactions, concerns about immunologic function, and interplay of other issues. Discussed w Rehab resident Interval History T max 37,6 VSS She reports feeling pretty well overall. No n/v. Reports she is eating. Ostomy output stable. Pain w wounds is stable. No cough or sob. PIC is functioning, no pain or swelling. ROS otherwise neg on 14 pt Discussed w Rehab and wound team. Labs reviewed- vanco trough 11.9 which is acceptable Antimicrobial Start date End date Erythromycin 12/13 Neomycin 12/13 12/13 Polymyxin B 12/14 12/14 Ertapenem 01/10 57 Gentamycin 12/14 12/15 Clindamycin 12/14 12/22 Pip/tazo 12/22 01/10 Fluconazole 12/22 12/30 Vancomycin 12/23 12/27 Micafungin 12/30 01/16 Vanco 01/26 active Meropenem 01/26 active Estimated Creatinine Clearance: 100.3 mL/min (based on SCr of 0.56 mg/dL). Medications Scheduled Meds: aspirin chewable tablet 81 mg 81 mg Oral QDAY buPROPion (WELLBUTRIN) tablet 100 mg 100 mg Oral TID busPIRone (BUSPAR) tablet 30 mg 30 mg Oral BID collagenase (SANTYL) topical ointment Topical QDAY docusate (COLACE) capsule 100 mg 100 mg Oral BID ferrous sulfate (FEOSOL, FEROSUL) tablet 325 mg 325 mg Oral TID w/ meals gabapentin (NEURONTIN) capsule 800 mg 800 mg Oral QID insulin aspart U-100 (NOVOLOG FLEXPEN) injection PEN 0-14 Units 0-14 Units Subcutaneous ACHS insulin aspart U-100 (NOVOLOG FLEXPEN) injection PEN 10 Units 10 Units Subcutaneous TID w/ meals insulin aspart U-100 (NOVOLOG FLEXPEN) injection PEN 3 Units 3 Units Subcutaneous QHS insulin glargine (LANTUS SOLOSTAR, BASAGLAR) injection PEN 20 Units 20 Units Subcutaneous QHS insulin NPH (HUMULIN N KwikPen) injection PEN 12 Units 12 Units Subcutaneous QDAY() lactobacillus rhamnosus GG (CULTURELLE) 15 billion cell capsule 1 capsule 1 capsule Oral BID w/meals levothyroxine (SYNTHROID) tablet 200 mcg 200 mcg Oral QDAY before breakfast lidocaine (LIDODERM) 5 % topical patch 2 patch 2 patch Topical QDAY meropenem (MERREM) IVP 500 mg 500 mg Intravenous Q6H* metFORMIN (GLUCOPHAGE) tablet 500 mg 500 mg Oral BID w/meals nortriptyline (PAMELOR) capsule 50 mg 50 mg Oral QHS oxyCODONE (ROXICODONE, OXY-IR) tablet 15 mg 15 mg Oral Once per day on Wed oxyCODONE SR (OXYCONTIN) tablet 10 mg 10 [address] Oral BID pantop[address]ole DR (PROTONIX) tablet 40 mg 40 mg Oral QDAY(21) rivaroxaban (XARELTO) tablet 20 mg 20 mg Oral QDAY w/breakfast simvastatin (ZOCOR) tablet 20 mg 20 mg Oral QHS sitaGLIPtin (JANUVIA) tablet 100 mg 100 mg Oral QDAY sodium chloride PF 0.9% flush 20 mL 20 mL Intravenous FLUSH TID vancomycin (VANCOCIN) 1,250 mg in dextrose 5% (D5W) IVPB 1,250 mg Intravenous Q12H* vancomycin, pharmacy to manage 1 each Service Per Pharmacy Continuous Infusions: PRN and Respiratory Meds:acetaminophen Q6H PRN, alum/mag hydroxide/simeth Q6H PRN, calcium carbonate Q4H PRN, milk of magnesia (CONC) Q4H PRN, ondansetron ( ZOFRAN) IV Q6H PRN, oxyCODONE Q4H PRN, pancrelipase 20,000 Units/ sodium bicarbonate 650 mg(#) PRN (Catalogue Librarian from Rx) Physical Examination Vital Signs: Last Vital Signs: 24 Hour Range BP: 127/64 (02/01 1253) Temp: 36.6 C (97.9 F) (02/013) Pulse: 115 (02/013) Respirations: 16 PER MINUTE (02/013) SpO2: 97 % (02/013) O2 Delivery: None (Room Air) (02/01 1253) BP: (102-139)/(56-75) Temp: [36.6 C (97.9 F)-37.6 C (99.6 F)] Pulse: [115-123] Respirations: [16 PER MINUTE-22 PER MINUTE] SpO2: [92 %-98 %] O2 Delivery: None (Room Air) General appearance: alert, oriented, Lungs: no wheezing Heart: Regular rhythm, mild tachy, no murmur, Abdomen: soft, obese, ostomy Ext: s/p left hemipelvectomy; mild edema RLE Skin: no new rashes noted Wound: Ongoing eschar, open wounds. The mons remains and supra pubic area has dependent edema somewhat better from yesterday.. The labial eschar is stable. No new concerns for cellulitis. I reviewed the wound w wound team. The left hip area has some areas where the dense eschar seem to be Lines: PICC RUE- No erythema, swelling or tenderness Lab Review Hematology Recent Labs 01/31/18 1150 HGB 8.5* Chemistry Recent Labs 01/31/18 0548 NA 139 K 3.8 CL 104 CO2 29 BUN 15 CR 0.56 GFR >60 GLU 101* CA 8.8 Microbiology, Radiology and other Diagnostics Review Microbiology data reviewed. Pertinent radiology reviewed Indy Isabel MD Pager [phone] * Jaclyn Yang - 02/01/2018 1:39 PM CDT Patient assisted nurse in emptying colostomy bag. Patient emptied about 50% of bag contents. Continue to educate and have patient empty colostomy without changing the bag each time. * Skyler Enriquez RN - 02/01/2018 12:57 PM CDT I have reviewed the notes, assessment, and/or procedures performed by Jaclyn Mancuso RN and concur with her documentation unless otherwise noted. * Leia Zimmerman - 02/01/2018 12:49 PM CDT CLINICAL NUTRITION Clinical Nutrition Follow-Up Summary Nutrition Assessment of Patient: Malnutrition Assessment: Adequately nourished prior to admission Current Oral Intake: Adequate Estimated Calorie Needs: 1660 (30kcal/kg of dw 55kg) Estimated Protein Needs: 100-120 (1.5-2.2g/kg of dw 55kg) Oral Diet Order: Diabetic 1731-3101 Kcal/day (60 g Carb/meal, 30 g Carb/HS snack ) Oral Supplement: Boost Glucose Control, Prosource Current EN Order: Nutren 1.5 @ 30ml/hr x 6 hrs + 2 pkts Prosource daily. Provides 390kcal, 42g protein, 137ml free water. 3-day PO intake average 01/29-01/31 (with Prosource and Boost GC): Intake (calories) Daily Average : 1700 kilocalories (100%) Intake (protein) Daily Average : 104 grams (100%) 01/26-01/27: 2-day calorie count met ~1500kcal (90% of goal) and 76g protein (76% of goal) with Boost drinks accounted for 01/26: 7-day calorie count average met ~94% of kcal, 71% protein needs 52 yof admitted to [facility] 01/14/ s/p L hemipelvectomy 12/14 due to pelvic mass/ chondrosarcoma. PMH of DM (A1c 6.5) and depression. Pt with stool soilage issues prohibiting wound healing had colostomy 12/30. TPN was added to enhance nutrition followed by supplemental EN. I&D with wound vac 01/10. Pt continues to average ~1600 kcal, 74g protein before additional 2 pkts of Prosource daily. She is compliant with consumption of Prosource in water or Boost. She continues to drink Boost GC 2-3 per day. No TF infusion x 3 days. Received call from team resident on progress of pt. Pt in pain today from therapy had difficulty finishing lunch due to schedule. Encouraged continued intake of all supplements to meet needs and discontinue TF. In times of decreased PO intake, encouraged pt to have an additional Boost. interested in outside foods. Discussed importance in calories and protein over restricted food choices outside of carb counting. Pt highly motivated to have Corpak removed, noting some frustration on the matter. Reiterated importance of meeting needs. Discussed pt with MD; plan to remove Corpak ramiro. POC BG 111-255 x 24 hrs; insulin regimen on board. Pre-albumin decreased to 10.0; nutrition status is consistent and continues to improve. Pt agreeable to keep up compliance with protein supps. No other concerns. weight is decreased, but reflective in fluids, amputation. Recommendation: Consider Discontinuation of Corpak and TF 2/2 pt meeting 100% of needs x 3 days plus >90% of kcal and >70% of protein needs x 12 days total. Discontinue calorie count; will monitor through intake documentation. Continue Boost GC 2-3x/day + 2 pkts Prosource with water of in Boost. If meal PO intake drops <50%, add Boost GC to day. Please document all protein supplements Intervention / Plan: Encouraged continuation of current protein supplement plan Monitor PO intake, wt, labs, skin, gi, meds, fluids Nutrition Diagnosis: Nutrition Diagnosis: Increased nutrient needs, specify: Etiology: protein: demand for wound healing Signs & Symptoms: s/p hemipelvectomy Goals: Combined routes of nutrition meeting 100% of nutritional needs Time Frame: Within 5 Days Status: no longer appropriate PO intake to meet >85% nutritional needs Time Frame: Prior to Discharge Status: Met;Ongoing Leia Zimmerman RD, LD *[id number] * Marco Payne MD - 02/01/2018 10:34 AM CDT Formatting of this note may be different from the original. Endocrinology Progress Note Name: Beata Kaiser Today's Date: 02/01/2018 Admission Date: 01/14/2018 LOS: 18 days Assessment/Plan: Principal Problem: Left hip amputation status Active Problems: Chondrosarcoma (HCC) Acute blood loss as cause of postoperative anemia Depression Anxiety DM (diabetes mellitus) (HCC) 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 Chronic pain Post-op pain Bacteremia Amputated left leg (HCC) Candiduria Assessment: 1. DM type 2 with stress hyperglycemia 2. Hypoglycemia A1c6.5, controlled CAMP TENDER regimen: Metformin 1000mg BID, [id number] mg daily Hypoglycemic episodes on this regimen: None and not checking blood sugars at home Follows up with for diabetes management:Primary care physician at [facility]-complications assessment: Retinopathy: None Peripheral neuropathy: Yes on treatment Autonomic neuropathy:None Nephropathy: None Macrovascular complications:None Risk factor assessment: Last lipid profile - None on file On ACEi/ARB: Yes On Statin: yes 3. 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 CAMP TENDER 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 daily TSH 2.1 this admission Forgets to take her levothyroxine sometime 4. Enteral Nutrition Has not received since 01/27/[address] Enteral feeds on order list -- Nutren 1.5 to 30ml per hour x 6 hours. 180mL total volume. Last given night. 5. Left leg amputation Wound Vac 6. Hyperlipidemia On lovastatin 7. Chondorsarcoma Pelvis s/p hemipelvectomy 8. Obesity Class III Recommendations: Pt to potentially DC next week, we are transitioning to a regimen similar to CAMP TENDER: Metformin 1000 mg BID and Jardiance 25mg daily. Avoiding SGLT-2 inhibitors given risk for infection with indwelling catheter. Lunch prandial blood glucose elevated to 255, will increase Novolog to 14 units+ MDCF with meals Restarted Metformin 500mg BID yesterday Started Januvia 100 mg daily today Continue Lantus 20 units qhs CorPak remains in place, has not needed enteral feeding since last . NPH 12 units SQ qhs with nocturnal tube feeds + Novolog 3 units SQ qhs with nocturnal TFs Hold if TFs are interrupted -- enteral feeds have not been given since 01/27/18 Discontinue if TFs are stopped -- enteral feeds remain on orders so I have not yet pulled this insulin from [facility] Continue LT4 therapy Increase to 200mcg on 01.25.2018 due to continued elevation of TSH / low range normal FT4 Repeat TSH testing in 6 weeks On statin therapy Pt discussed with Dr. Pyane Subjective Beata Kaiser is a 52 y.o. female. Patient working with OT this am, sitting on the edge of bed, getting ready to wash up. Reports eating all of breakfast today. History of Present Illness Beata Kaiser is a 52 y.o. S/p left hemipelvectomy 12/13/17 DM2 with stress hyperglycemia HgbA1C 6.5%. CAMP TENDER meds: Metformin + Jardiance / PCP in [place], [place] Review of Systems: Denies chest pain/ sob/ nausea/ vomiting/ abd cramping Medications Scheduled Meds: aspirin chewable tablet 81 mg 81 mg Oral QDAY buPROPion (WELLBUTRIN) tablet 100 mg 100 mg Oral TID busPIRone (BUSPAR) tablet 30 mg 30 mg Oral BID collagenase (SANTYL) topical ointment Topical QDAY docusate (COLACE) capsule 100 mg 100 mg Oral BID ferrous sulfate (FEOSOL, FEROSUL) tablet 325 mg 325 mg Oral TID w/ meals gabapentin (NEURONTIN) capsule 800 mg 800 mg Oral QID insulin aspart U-100 (NOVOLOG FLEXPEN) injection PEN 0-14 Units 0-14 Units Subcutaneous ACHS insulin aspart U-100 (NOVOLOG FLEXPEN) injection PEN 10 Units 10 Units Subcutaneous TID w/ meals insulin aspart U-100 (NOVOLOG FLEXPEN) injection PEN 3 Units 3 Units Subcutaneous QHS insulin glargine (LANTUS SOLOSTAR, BASAGLAR) injection PEN 20 Units 20 Units Subcutaneous QHS insulin NPH (HUMULIN N KwikPen) injection PEN 12 Units 12 Units Subcutaneous QDAY(21) lactobacillus rhamnosus GG (CULTURELLE) 15 billion cell capsule 1 capsule 1 capsule Oral BID w/meals levothyroxine (SYNTHROID) tablet 200 mcg 200 mcg Oral QDAY before breakfast lidocaine (LIDODERM) 5 % topical patch 2 patch 2 patch Topical QDAY meropenem (MERREM) IVP 500 mg 500 mg Intravenous Q6H* metFORMIN (GLUCOPHAGE) tablet 500 mg 500 mg Oral BID w/meals nortriptyline (PAMELOR) capsule 50 mg 50 mg Oral QHS oxyCODONE (ROXICODONE, OXY-IR) tablet 15 mg 15 mg Oral Once per day on Wed oxyCODONE SR (OXYCONTIN) tablet 10 mg 10 [address] Oral BID [address]op[address]ole DR (PROTONIX) tablet 40 mg 40 mg Oral QDAY(21) rivaroxaban (XARELTO) tablet 20 mg 20 mg Oral QDAY w/breakfast simvastatin (ZOCOR) tablet 20 mg 20 mg Oral QHS sitaGLIPtin (JANUVIA) tablet 100 mg 100 mg Oral QDAY sodium chloride PF 0.9% flush 20 mL 20 mL Intravenous FLUSH TID vancomycin (VANCOCIN) 1,250 mg in dextrose 5% (D5W) IVPB 1,250 mg Intravenous Q12H* vancomycin, pharmacy to manage 1 each Service Per Pharmacy Continuous Infusions: PRN and Respiratory Meds:acetaminophen Q6H PRN, alum/mag hydroxide/simeth Q6H PRN, calcium carbonate Q4H PRN, milk of magnesia (CONC) Q4H PRN, ondansetron ( ZOFRAN) IV Q6H PRN, oxyCODONE Q4H PRN, pancrelipase 20,000 Units/ sodium bicarbonate 650 mg(#) PRN (Catalogue Librarian from Rx) Objective: Vital Signs: Last Filed Vital Signs: 24 Hour Range BP: 120/59 (02/01 351) Temp: 37.6 C (99.6 F) (02/01 351) Pulse: 117 (02/01 351) Respirations: 16 PER MINUTE (02/01 351) SpO2: 92 % (02/01 351) O2 Delivery: None (Room Air) (02/01 351) BP: (102-139)/(56-75) Temp: [36.9 C (98.4 F)-37.6 C (99.6 F)] Pulse: [113-123] Respirations: [16 PER MINUTE-22 PER MINUTE] SpO2: [92 %-98 %] O2 Delivery: None (Room Air) Intensity Pain Scale 0-10 (Pain 1): 5 (02/01/18 0633) Vitals: 01/29/18 0356 01/30/18 0555 01/30/18 0558 Weight: 100.6 kg (221 lb 11.5 oz) 84.8 kg (186 lb 15.2 oz) 90.4 kg (199 lb 4.7 oz) Intake/Output Summary: (Last 24 hours) Intake/Output Summary (Last 24 hours) at 02/01/18 1036 Last data filed at 02/01/18 0730 Gross per 24 hour Intake 2920 ml Output 5275 ml Net -2355 ml Stool Occurrence: 1 Physical Exam General: Alert, cooperative, no distress, appears stated age HEENT: CorPak in place Eyes: Conjunctivae/corneas clear. ENT: Moist mucous membranes Lungs: Clear to auscultation bilaterally Heart: Regular rate and rhythm Abdomen: Soft, non-tender, ostomy in place. Extremities: Left jamil-pelvectomy Pulses: 2+ and symmetric TECHNICAL SOLUTION ARCHITECT: Nonfocal, moves all extremities Lab Review General Chemistry: Lab Results Component Value Date NA 139 01/31/2018 K 3.8 01/31/2018 CL 104 01/31/2018 GAP 6 01/31/2018 BUN 15 01/31/2018 CR 0.56 01/31/2018 GLU 101 01/31/2018 CA 8.8 01/31/2018 ALBUMIN 2.3 01/28/2018 LACTIC 1.4 01/21/2018 OBSCA 1.07 12/19/2017 MG 1.8 01/03/2018 TOTBILI 0.2 01/28/2018 , Endocrine: Lab Results Component Value Date TSH 10.130 01/25/2018 , HgbA1C: Lab Results Component Value Date HGBA1C 6.5 12/28/2017 and Lipid Profile: Lab Results Component Value Date TRIG 254 01/13/2018 Glucose, POC Date/Time Value Ref Range Status 02/01/2018 0719 111 (H) 70 - 100 MG/DL Final 02/01/2018 0349 125 (H) 70 - 100 MG/DL Final 01/31/2018 2159 150 (H) 70 - 100 MG/DL Final 01/31/2018 1659 115 (H) 70 - 100 MG/DL Final 01/31/2018 1559 143 (H) 70 - 100 MG/DL Final 01/31/2018 1311 172 (H) 70 - 100 MG/DL Final 01/31/2018 1151 124 (H) 70 - 100 MG/DL Final 01/31/2018 0656 119 (H) 70 - 100 MG/DL Final Point of Care Testing (Last 24 hours) POC Glucose (Download): (!) 111 (02/01/18 0275) Radiology and other Diagnostics Review: No pertinent radiology. Thank you for the opportunity to participate in this pt's care Please page with any questions or concerns Milly ClarkeHENRAN Pager [phone] Office: [phone] ATTESTATION I personally performed the banuelos portions of the E/M visit, discussed case with Nurse Practitioner and concur with documentation of history, physical exam, assessment, and treatment plan unless otherwise noted. Type 2 diabetes mellitus well controlled prior to this admission and needed surgical intervention. 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 She has had wound infection and bacteremia as complications. Prior to admission her diabetes mellitus type 2 was well controlled on metformin and jardiance. AT present she is on basal bolus insulin with Lantus 20 units and novolog 18 with meals. We are restarting metformin and using sitaglpitin in place of an SGLT-2 inhibitor given candiuria. We reduced her meal time novolog as we were starting oral agents but glucose became less controlled today. We therfore increase the novolog back to 14 units with meals. This was reviewed with the patient and her . Staff name: Marco Payne MD Date: 02/01/2018 * Ruth Allen MD - 02/01/2018 10:08 AM CDT Formatting of this note may be different from the original. ATTESTATION I personally performed the banuelos portions of the E/M visit, discussed case with resident and concur with resident documentation of history, physical exam, assessment, and treatment plan unless otherwise noted. Labs and VS reviewed and stable. Repeat blood cultures NGTD. Eating well with protein supplements, likely remove NGT soon. Tolerated HBOT well, wound care would like to proceed with M-F treatment. Will see if can coordinate with rehab schedule - may need modified schedule if daily HBOT at 1:30pm. Patient remains medically stable to participate in IRF program. My additions to the resident's note are in the text and highlighted in blue. Staff name: Ruth Allen MD Date: 02/01/2018 Physical Medicine & Rehabilitation Progress Note Today's Date: 02/01/2018 Admission Date: 01/14/2018 LOS: 18 days Insurance: [facility] Principal Problem: Left hip amputation status Active Problems: Chondrosarcoma (HCC) Acute blood loss as cause of postoperative anemia Depression Anxiety DM (diabetes mellitus) (HCC) 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 Chronic pain Post-op pain Bacteremia Amputated left leg (HCC) Candiduria Assessment/Plan: Beata Lema a 52 y.o.female[facility] the following issues : 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 Goals: household mobility at wheelchair level min A Tentative discharge date: 02/09/18, likely extend based on HBOT schedule Recommended therapy after discharge: home health OT/PT Recommended equipment: Hospital bed, wheelchair/cushion (Numotion eval 01/27/18) , slideboard, ramp - Patient requires hospital bed at discharge. Patient requires positioning of the body in ways not feasible with ordinary beds to in order to alleviate pain. Patient requires frequent repositioning of the body and/or has an immediate need for change in body position. Daily Functional Update: Transfers Device Sit to Stand Transfer: Assistive Device: Sliding Board (01/30/2018 3:00 PM) No Data Recorded Gait Device Assist Required Distance Gait: Assistive Device: IV Pole (12/01/2017 11:00 AM) No Data Recorded Gait Distance: 400 feet (12/01/2017 11:00 AM) Toileting Assist Required Equipment Toilet Transfer Toileting Assist: Total Assist (01/06/2018 1:00 PM) No Data Recorded No Data Recorded Dressing Lower Body LE Dressing Assist: Total Assist (01/31/2018 9:00 AM) Chrondrosarcoma s/p hemipelvectomy and hemisacrectomy Lymphedema wound and residual limb >wound vac in place. Changes M/W/F by wound vac team. PO 15mg oxycodone MWF for [place] changes + lidocaine into sponge during acute hospitalization - wean off IV pain meds as able >Change dressings prn with dry sterile gauze and hypafix tape >vitamin A &D for labia wound, collagenase for left lower abdomen wound healing >Per plastic surgery note 01/24 not recommending further surgical intervention at this time >01/31 Pt had trial of HBOT which she tolerated well >Plan on 20 treatment of HBOT M-F in late afternoon Post-op pain in setting of chronic pain Phantom limb pain, neuropathic pain >Tylenol, oxycontin 10mg BID and oxycodone 20mg q3h prn. Lidoderm patch prn. > Continue nortriptyline to 50mg QHS (increased 01/27) > Continue gabapentin 800mg Q6h s/p diverting colostomy - Stool saturating wound. Diverting colostomy done 12/30 >wound/ostomy consulted, working on education with nursing Bladder injury, recent repair - bladder and urethral injuries during hemipelvectomy on 12/14/17 - underwent cystoscopy with left ureteral stent insertion, Bladder neck repair, Urethroplasty and repair of urethral injury, Vaginal closure >continue melchor catheter > Urology f/u after rehab discharge Chest lesions (metastases?) - 11/26/17 CT: few small pulmonary nodules. >plan is to resect the masses in the chest later >CT chest scheduled for 02/08 with f/u with CTS surgery - may need to reschedule GBS bacteremia w/ sepsis due to left hip wound - Fever and leukocytosis began 12/20/17, Bcx 1/2 positive for GBS on 12/23 -Fever 01/21 - blood cx and urine cx NGTD >Completed course of abx 01/23 ertapenem > Multiple fevers 01/26 in pm, started Vanc/Meropenem and obtained blood cx x2 and UA/reflex cx - 09/21 bcx contaminated, rest NGTD > Per ID will obtain repeat BCx x2 due to x1 of 2 drawn 01/26 contaminated > Duration of IV abx TBD DVT - 11/30/17 IVC filter for DVT within the external iliac vein >cont Xarelto ABLA - Transfusion 01/15 and 01/28 1U PRBC - monitor labs T2DM - A1c 6.5%, controlled - CAMP TENDER regimen: Metformin thousand milligrams twice a day, [id number] mg daily >Continue with Lantus 20 units QHS, novolog 12u postmeal, MDCF 5x per day >Continue NPH 30 units with nocturnal tube feeds + Novolog 8 units SQ qhs with nocturnal TFs - please hold NPH if tube feed are held and give at the start of tube feed 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 - CAMP TENDER 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 daily - TSH 2.1 this admission >levothyroxine increased 200 mcg on 01/26 >She will need repeat thyroid function tests in 6-8 weeks Major depressive disorder, recurrent, moderate CLAUDIA Adjustment disorder with mixed anxiety and depressed mood > continue CAMP TENDER Wellbutrin and buspar, started on nortriptyline this admission Nutrition - 01/31 albumin 2.4, Prealbumin 10.0, recheck 02/07 -Pt is currently meeting caloric but not protein needs >Current diet: diabeticand nocturnal tube feeds - Nutren 1.5 to 30ml/hr x 6 hrs + 2 pkt Prosource daily > Case Packer And Sealer consult and d/c tube feeds once eating to meet needs > weekly prealbumin and albumin - remains low > Will hold TF is pt able to consume 2 Prosource daily by mouth with continued Boost GC x 2 and menu food >TF's held 01/29, 01/30, and 01/31 2/2 good PO intake >Will f/u with shaker plate operator to see when corpak can be d/c HLD: holding CAMP TENDER statin Insomnia: nortriptyline 50mg qhs DVT Prophylaxis:Xarelto, will discharge on it Subjective No acute events overnight. Pt lying comfortably in bed when seen this am. Pt had wound vac change earlier today, pain worse this am because of it but tolerable. Pt seemed encouraged to be getting HBOT treatments. When I spoke with her yesterday evening she was agreeable to doing rehab and getting HBOT. Objective Vital Signs: Last Filed Vital Signs: 24 Hour Range BP: 120/59 (02/01 351) Temp: 37.6 C (99.6 F) (02/01 351) Pulse: 117 (02/01 351) Respirations: 16 PER MINUTE (02/01 351) SpO2: 92 % (02/01 351) O2 Delivery: None (Room Air) (02/01 351) BP: (102-139)/(56-75) Temp: [36.9 C (98.4 F)-37.6 C (99.6 F)] Pulse: [113-123] Respirations: [16 PER MINUTE-22 PER MINUTE] SpO2: [92 %-98 %] O2 Delivery: None (Room Air) Intensity Pain Scale 0-10 (Pain 1): 5 (02/01/18 0633) Vitals: 01/29/18 0356 01/30/18 0555 01/30/18 0558 Weight: 100.6 kg (221 lb 11.5 oz) 84.8 kg (186 lb 15.2 oz) 90.4 kg (199 lb 4.7 oz) Intake/Output Summary: (Last 24 hours) Intake/Output Summary (Last 24 hours) at 02/01/18 1009 Last data filed at 02/01/18 0730 Gross per 24 hour Intake 2980 ml Output 5275 ml Net -2295 ml Stool Occurrence: 1 Oral Diet Order: Diabetic [id number] Kcal/day (60 g Carb/meal, 30 g Carb/HS snack ) Last BM Date: 01/31/18 Lab: Results for orders placed or performed during the hospital encounter of (from the past 24 hour(s)) HEMOGLOBIN Collection Time: 01/31/18 11:50 AM # # Low-High Hemoglobin 8.5 (L) 12.0 - 15.0 GM/DL POC GLUCOSE Collection Time: 01/31/18 11:51 AM # # Low-High Glucose, POC 124 (H) 70 - 100 MG/DL POC GLUCOSE Collection Time: 01/31/18 1:11 PM # # Low-High Glucose, POC 172 (H) 70 - 100 MG/DL POC GLUCOSE Collection Time: 01/31/18 3:59 PM # # Low-High Glucose, POC 143 (H) 70 - 100 MG/DL POC GLUCOSE Collection Time: 01/31/18 4:59 PM # # Low-High Glucose, POC 115 (H) 70 - 100 MG/DL CULTURE-BLOOD W/SENSITIVITY Collection Time: 01/31/18 6:00 PM # # Low-High Battery Name BLOOD CULTURE Specimen Description BLOOD PICC LINE Special Requests NONE Culture NO GROWTH 1 DAY Report Status CULTURE-BLOOD W/SENSITIVITY Collection Time: 01/31/18 6:00 PM # # Low-High Battery Name BLOOD CULTURE Specimen Description BLOOD LEFT ANTECUBITAL PERIPHERAL DRAW Special Requests NONE Culture NO GROWTH 1 DAY Report Status POC GLUCOSE Collection Time: 01/31/18 9:59 PM # # Low-High Glucose, POC 150 (H) 70 - 100 MG/DL POC GLUCOSE Collection Time: 02/01/18 3:49 AM # # Low-High Glucose, POC 125 (H) 70 - 100 MG/DL POC GLUCOSE Collection Time: 02/01/18 7:19 AM # # Low-High Glucose, POC 111 (H) 70 - 100 MG/DL Scheduled Meds: aspirin chewable tablet 81 mg 81 mg Oral QDAY buPROPion (WELLBUTRIN) tablet 100 mg 100 mg Oral TID busPIRone (BUSPAR) tablet 30 mg 30 mg Oral BID collagenase (SANTYL) topical ointment Topical QDAY docusate (COLACE) capsule 100 mg 100 mg Oral BID ferrous sulfate (FEOSOL, FEROSUL) tablet 325 mg 325 mg Oral TID w/ meals gabapentin (NEURONTIN) capsule 800 mg 800 mg Oral QID insulin aspart U-100 (NOVOLOG FLEXPEN) injection PEN 0-14 Units 0-14 Units Subcutaneous ACHS insulin aspart U-100 (NOVOLOG FLEXPEN) injection PEN 10 Units 10 Units Subcutaneous TID w/ meals insulin aspart U-100 (NOVOLOG FLEXPEN) injection PEN 3 Units 3 Units Subcutaneous QHS insulin glargine (LANTUS SOLOSTAR, BASAGLAR) injection PEN 20 Units 20 Units Subcutaneous QHS insulin NPH (HUMULIN N KwikPen) injection PEN 12 Units 12 Units Subcutaneous QDAY(21) lactobacillus rhamnosus GG (CULTURELLE) 15 billion cell capsule 1 capsule 1 capsule Oral BID w/meals levothyroxine (SYNTHROID) tablet 200 mcg 200 mcg Oral QDAY before breakfast lidocaine (LIDODERM) 5 % topical patch 2 patch 2 patch Topical QDAY meropenem (MERREM) IVP 500 mg 500 mg Intravenous Q6H* metFORMIN (GLUCOPHAGE) tablet 500 mg 500 mg Oral BID w/meals nortriptyline (PAMELOR) capsule 50 mg 50 mg Oral QHS oxyCODONE (ROXICODONE, OXY-IR) tablet 15 mg 15 mg Oral Once per day on Wed oxyCODONE SR (OXYCONTIN) tablet 10 mg 10 mg Oral BID pantop[address]ole DR (PROTONIX) tablet 40 mg 40 mg Oral QDAY(21) rivaroxaban (XARELTO) tablet 20 mg 20 mg Oral QDAY w/breakfast simvastatin (ZOCOR) tablet 20 mg 20 mg Oral QHS sitaGLIPtin (JANUVIA) tablet 100 mg 100 mg Oral QDAY sodium chloride PF 0.9% flush 20 mL 20 mL Intravenous FLUSH TID vancomycin (VANCOCIN) 1,250 mg in dextrose 5% (D5W) IVPB 1,250 mg Intravenous Q12H* vancomycin, pharmacy to manage 1 each Service Per Pharmacy Continuous Infusions: PRN and Respiratory Meds:acetaminophen Q6H PRN, alum/mag hydroxide/simeth Q6H PRN, calcium carbonate Q4H PRN, milk of magnesia (CONC) Q4H PRN, ondansetron ( ZOFRAN) IV Q6H PRN, oxyCODONE Q4H PRN, pancrelipase 20,000 Units/ sodium bicarbonate 650 mg(#) PRN (Catalogue Librarian from Rx) Physical Exam VS: BP 120/59 (BP Source: Arm, Left) | Pulse 117 | Temp 37.6 C (99.6 F) | Ht 160 cm (63") | Wt 90.4 kg (199 lb 4.7 oz) Comment: with 2 green blankets, pt personal blanket; phone, wound vac | LMP 01/14/2013 | SpO2 92% | BMI 35.30 kg/m Gen: awake, alert, NAD, corpak in place HEENT: left ear w/o erythema or drainage. CV: RRR, no murmur Pulm: CTAB, no w/r Abd: nondistended, nontender Extremities: mild edema rle, s/p hemipelvectomy on left with dressings and wound vac in place Psych: Pleasent mood Therapy Notes & Labs Reviewed. * Nneka Garsia RN - 02/01/2018 9:16 AM CDT Formatting of this note may be different from the original. Wound Ostomy Note NAME:Beata Kaiser :1965 AGE: 52 y.o. ADMISSION DATE: 01/14/2018 DAYS ADMITTED: LOS: 18 days Reason for Consult/Visit: wound VAC Assessment/Plan: Principal Problem: Left hip amputation status Active Problems: Chondrosarcoma (HCC) Acute blood loss as cause of postoperative anemia Depression Anxiety DM (diabetes mellitus) (HCC) 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 Chronic pain Post-op pain Bacteremia Amputated left leg (HCC) Candiduria Wounds (NOT for Pressure Injuries) 11/30/17 0853 Left Buttocks Surgical Incision (Active) 11/30/17 0853 Buttocks Wound Orientation: Left Wound Type: Surgical Incision Wound Type:: Wound Description (Comments): Carlos Manuel Marctt Drain, Sutures, xeroform, 4x4's, and tegaderm. Wound Image 01/21/2018 12:15 PM Agree With My Assessment? Yes 01/08/2018 9:36 PM Wound Base Assessment Slough;Gallardo;Eschar 02/01/2018 9:05 AM Surrounding Skin Assessment Intact 02/01/2018 9:05 AM Wound Site Closure Ceci 02/01/2018 9:05 AM Wound Drainage Amount Scant 02/01/2018 9:05 AM Wound Drainage Description Serous 02/01/2018 9:05 AM Wound Dressing Status Changed 02/01/2018 9:05 AM Wound Dressing and / or Treatment Hydrofera Blue Ready 02/01/2018 9:05 AM Wound Length (cm) (Wound Team Only) 20 cm 02/01/2018 9:05 AM Wound Width (cm) (Wound Team Only) 2 cm 02/01/2018 9:05 AM Wound Depth (cm) (Wound Team Only) 0.1 02/01/2018 9:05 AM Wound Volume (cm^3) (Wound Team Only) 4 cm^3 02/01/2018 9:05 AM Wound Healing % (Wound Team Only) 61.9 02/01/2018 9:05 AM Number of days: 63 Wounds (NOT for Pressure Injuries) 12/14/17 1748 Left Abdomen Ulcer (not from pressure) (Active) 12/14/17 1748 Abdomen Wound Orientation: Left Wound Type: Ulcer (not from pressure) Wound Type:: Wound Description (Comments): Wound Image 01/17/2018 10:00 AM Agree With My Assessment? Except 12/30/2017 2:45 PM Wound Base Assessment Moist;Gallardo;Slough 02/01/2018 9:05 AM Surrounding Skin Assessment Intact;Induration 02/01/2018 9:05 AM Wound Site Closure None 02/01/2018 9:05 AM Wound Drainage Amount Scant 02/01/2018 9:05 AM Wound Drainage Description Serous 02/01/2018 9:05 AM Wound Dressing Status Changed 02/01/2018 9:05 AM Wound Dressing and / or Treatment Hydrofera Blue Ready 02/01/2018 9:05 AM Wound Length (cm) (Wound Team Only) 5 cm 02/01/2018 9:05 AM Wound Width (cm) (Wound Team Only) 21 cm 02/01/2018 9:05 AM Wound Depth (cm) (Wound Team Only) 0.1 02/01/2018 9:05 AM Wound Volume (cm^3) (Wound Team Only) 10.5 cm^3 02/01/2018 9:05 AM Wound Healing % (Wound Team Only) -25 02/01/2018 9:05 AM Number of days: 49 Wounds (NOT for Pressure Injuries) 12/20/17 1530 Right;Lower Abdomen Moisture Associated Skin Damage (Active) 12/20/17 1530 Abdomen Wound Orientation: Right;Lower Wound Type: Moisture Associated Skin Damage Wound Type:: Wound Description (Comments): Agree With My Assessment? Yes 01/06/2018 8:00 PM Wound Base Assessment Clean;Moist 01/31/2018 8:47 PM Surrounding Skin Assessment Dry;Intact;[place] 01/31/2018 8:47 PM Wound Site Closure Open to Air 01/30/2018 7:50 AM Wound Drainage Amount None 01/31/2018 8:47 PM Wound Drainage Description Serous 01/14/2018 9:08 AM Wound Dressing Status Changed 02/01/2018 9:05 AM Wound Dressing and / or Treatment Interdry [employer] 02/01/2018 9:05 AM Number of days: 43 Wounds (NOT for Pressure Injuries) 12/23/17 1345 Left Labia (Active) 12/23/17 1345 Labia Wound Orientation: Left Wound Type: Wound Type:: Wound Description (Comments): Agree With My Assessment? Yes 01/07/2018 9:55 PM Wound Base Assessment Yellow;Slough 02/01/2018 9:05 AM Surrounding Skin Assessment Induration;Edema;[place] 02/01/2018 9:05 AM Wound Site Closure Open to Air 01/31/2018 8:47 PM Wound Drainage Amount Scant 02/01/2018 9:05 AM Wound Drainage Description Serous 02/01/2018 9:05 AM Wound Dressing Status Changed 02/01/2018 9:05 AM Wound Dressing and / or Treatment Collagenase;Foam ([place]ain) 02/01/2018 9:05 AM Wound Length (cm) (Wound Team Only) 2.2 cm 02/01/2018 9:05 AM Wound Width (cm) (Wound Team Only) 1 cm 02/01/2018 9:05 AM Wound Depth (cm) (Wound Team Only) 0.1 02/01/2018 9:05 AM Wound Volume (cm^3) (Wound Team Only) 0.22 cm^3 02/01/2018 9:05 AM Wound Healing % (Wound Team Only) 88.27 02/01/2018 9:05 AM Number of days: 40 Wounds (NOT for Pressure Injuries) 12/30/17 1002 Left;Anterior Surgical Incision stump (Active) 12/30/17 1002 Wound Orientation: Left;Anterior Wound Type: Surgical Incision Wound Type:: stump Wound Description (Comments): Suture, ceci, telfa and iodine, 4x4, and tegaderm Wound Image 01/21/2018 12:15 PM Agree With My Assessment? Yes 01/06/2018 8:00 PM Wound Base Assessment Eschar;Dry 02/01/2018 9:05 AM Surrounding Skin Assessment Intact;Edema;Purple 02/01/2018 9:05 AM Wound Site Closure Wound Adhesive Bandage 02/01/2018 9:05 AM Wound Drainage Amount Scant 02/01/2018 9:05 AM Wound Drainage Description Serous 02/01/2018 9:05 AM Wound Dressing Status Changed 02/01/2018 9:05 AM Wound Dressing and / or Treatment Hydrofera Blue Ready 02/01/2018 9:05 AM Wound Length (cm) (Wound Team Only) 16 cm 02/01/2018 9:05 AM Wound Width (cm) (Wound Team Only) 28 cm 02/01/2018 9:05 AM Wound Depth (cm) (Wound Team Only) 0.1 02/01/2018 9:05 AM Wound Volume (cm^3) (Wound Team Only) 44.8 cm^3 02/01/2018 9:05 AM Wound Healing % (Wound Team Only) -31.15 02/01/2018 9:05 AM Number of days: 33 Wounds (NOT for Pressure Injuries) 01/10/18 1100 Hip Surgical Incision (Active) 01/10/18 1100 Hip Wound Orientation: Wound Type: Surgical Incision Wound Type:: Wound Description (Comments): XEROFORM, 4X4S, HYPAFIX, WOUND VAC Wound Image 01/21/2018 12:15 PM Agree With My Assessment? Except 01/24/2018 4:00 AM Wound Base Assessment Moist;[place];Slough;[place];Yellow 02/01/2018 9:05 AM Surrounding Skin Assessment Intact;Edema 02/01/2018 9:05 AM Wound Site Closure Wound Adhesive Bandage;Ceci 02/01/2018 9:05 AM Wound Drainage Amount Copious 02/01/2018 9:05 AM Wound Drainage Description Serosanguineous 02/01/2018 9:05 AM Wound Dressing Status Changed 02/01/2018 9:05 AM Wound Dressing and / or Treatment VAC @ ___ mm/Hg;VAC sponge - black;VAC tx: Continuous, Intermittent;Hydrofera Blue Ready 02/01/2018 9:05 AM Wound Length (cm) (Wound Team Only) 8 cm 02/01/2018 9:05 AM Wound Width (cm) (Wound Team Only) 24 cm 02/01/2018 9:05 AM Wound Depth (cm) (Wound Team Only) 27 02/01/2018 9:05 AM Wound Volume (cm^3) (Wound Team Only) 5184 cm^3 02/01/2018 9:05 AM Wound Healing % (Wound Team Only) -121.54 02/01/2018 9:05 AM Tunneling in CM (Wound Team Only) 15 cm 02/01/2018 9:05 AM Tunnelling Location 3 02/01/2018 9:05 AM Number of days: 22 Wounds (NOT for Pressure Injuries) 01/10/18 Left;Inner;Posterior Buttocks Surgical Incision (Active) 01/10/18 Buttocks Wound Orientation: Left;Inner;Posterior Wound Type: Surgical Incision Wound Type:: Wound Description (Comments): Wound Base Assessment Moist;Slough;[place];Yellow 02/01/2018 9:05 AM Surrounding Skin Assessment Intact;Edema 02/01/2018 9:05 AM Wound Site Closure [place] 02/01/2018 9:05 AM Wound Drainage Amount Scant 02/01/2018 9:05 AM Wound Drainage Description Serosanguineous 02/01/2018 9:05 AM Wound Dressing Status Changed 02/01/2018 9:05 AM Wound Dressing and / or Treatment Hydrofera Blue Ready 02/01/2018 9:05 AM Wound Length (cm) (Wound Team Only) 5 cm 02/01/2018 9:05 AM Wound Width (cm) (Wound Team Only) 13 cm 02/01/2018 9:05 AM Wound Depth (cm) (Wound Team Only) 0.1 02/01/2018 9:05 AM Wound Volume (cm^3) (Wound Team Only) 6.5 cm^3 02/01/2018 9:05 AM Number of days: 22 Colostomy 12/30/17 1209 Right (Active) 12/30/17 1209 Right Agree With My Assessment? Except 01/24/2018 4:00 AM Stoma Assessment Red;[place] 01/31/2018 7:52 PM Drainage Description Brown 01/31/2018 7:52 PM Peristomal Skin Assessment Dry;Intact 01/31/2018 7:52 PM Dressing Status Clean;Dry;Intact 01/31/2018 7:52 PM Stoma Miscellaneous Other (Comment) 01/28/2018 8:00 AM Drain Output (ml) 0 ml 01/30/2018 7:55 PM pt seen today for wound vac change. Pt was planned for vac change yesterday. Instead pt received HBO and we wanted to see if the vac wound continue to have a seal after being interrupted during HBO treatment. After treatment, wound vac hooked back up to machine and worked great without leaks. Plan will be for pt to receive HBO about 1-1:30 M-F. We will change wound vac on MWF still. Wound base cleaned with normal saline and gauze. Black vac foam applied and secured with adhesive drape. Dressing connected to wound vac with setting of - 125mmhg continuous. Next dressing change planned for 02/04/18. ( hoping to get back on schedule of [facility], if vac will last we will plan a change for Wednesday) Procedure: Negative Wound Therapy Dressing Change Anesthesia Type: Not Applicable or None Provider(s) and Role: RN Negative Wound Pressure Device Type: KCI VAC Contact layer: no Wound dimension (length x width x depth, tunneling, undermining): see above Number of sponges in the wound prior to dressing change: 2 Number of sponges removed from the wound: 2 Type of sponge: Black foam Number of sponges placed in the wound: 2 Nneka Garsia RN ID was able to assess wound today as well. Overall wound remains stable. Area on stump "horn" showing increased signs of venous congestion. Hoping for improvement with hyperbarics. Applied hydrafera blue ready to incision and abdomen wound. Change with wound vac changes collagenase to left labia wound and place foam dressing around melchor to keep pressure of labia. Change daily interdry AG to right groin/abdomen Thank you Opal Garsia RN, BSN Wound /Ostomy Team Pager [phone] After Hours Wound/Ostomy team pager [phone] * Indy Isabel MD - 01/31/2018 4:52 PM CDT Formatting of this note may be different from the original. Infectious Diseases Progress Note Today's Date: 01/31/2018 Admission Date: 01/14/2018 Assessment: Coag neg staph bacteremia- likely contaminant 01/26 PIC- neg 01/26 peripheral- Coag neg Low grade fever 01/21-improved/resolved- recurrent 01/26 - Eschar of wound w/fat necrosis, ongoing sweats, no other new s/s -01/21 UA- 2-10 WBC, no culture -01/21 BC neg -01/21 KUB- -01/24- plastic eval of wounds- no surgical intervention given lyphedematous tissue, wound team, ongoing areas of dehiscence/eschar 01/26- coag neg (peripheral) , neg PIC 01/26 UA - 0-2 WBC Non-healing surgical wounds 01/31- Hiberbaric tx started Transaminitis-improved 01/24 - LFT elevated 104/97 01/25 LFT improved 41/68 # GBS bacteremia w sepsis- source suspected left hip wound, less likely pna - Fever and leukocytosis began 12/20/17 - 4/3 L lower lobe infiltrate - read as atelectasis - 12/20 C. diff negative - 12/23 Bcx 09/21 set group B streptococcus; source seems most likely intra-pelvic; 12/24 bcx negative - CT pelvis 12/25: "Ill-defined fluid and air along the anterior margin of the surgical site away from the drain tip. However, no discrete drainable fluid collection is noted. - OR 01/10 for wound eval - no sign of infection - posterior wound starting to granulate, WV started # Candiduria-resolved - 12/21/17 UA: wbc 2-10, negative nitrite, 1+ luukocytes, Culture > 100,000 Liliana sp - Sensitivities not done, unsure if fluconazole susceptible; repeat urine culture negative 12/28 but improved with micafungin so is suspicion for fluconazole resistance - Treating given indwelling melchor and inability to remove melchor d/t recent bladder repair - ? Candidal intertrigo - groin/mons - Cath change in OR 01/10 - no bladder leak at that time - Micafungin course completed 01/16 # s/p hemipelvectomy for Chondrosarcoma - 11/25/17 MRI: a large lesion throughout the entire left hemipelvis that appeared to be centered within the ilium - 11/30/17 open biopsy: Chondrosarcoma - 11/26/17 CT: few small pulmonary nodules. will resect the masses in the chest later - admission 12/13/17- - 12/14/17: left hemipelvectomy, jamil sacrectomy. Complicated with bladder and urethral injury. Added Cystoscopy with left ureteral stent insertion, Bladder neck repair, Urethroplasty and repair of urethral injury, Vaginal closure. - Stool saturating wound. Diverting colostomy done 12/30. - 01/06 CT: left hemipelvectomy, edema w/in the operative bed- not changed except sl more gas, more focal gas/fluid alonger anterior/inferior and superior surgical margins. # DVT - 11/30/17 IVC filter for DVT within the external iliac vein # Obese # HTN # DM # 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 # Depression # Generalized pain # abx allergy - allergic history to Cephalexin 'years ago' with skin rash and hot flash - tolerated Penicillin when she had dental caries -tolerates carbpenem Recommendations: 1. Continue Vanco and Meropenem 2. Vanco trough 10-15 3. Repeat BC peripheral and PIC given recurrent fever and + coag neg ( contaminant vs line) 4. Monitor anemia 5. Monitor renal function daily while on vanco 6. Please call ID tomorrow when wound team changes vac Complexity of medical decision making is high b/c of the multi-system nature of the infectious disease process and concerns about the complexity of the patient illness including the sensitivity of the organisms being treated, the potential for drug toxicity and interactions, concerns about immunologic function, and interplay of other issues. Discussed w Rehab resident Interval History Tmax 38.1 last pm otherwise has been afebrile She went to [facility] today. Reports that went well. She denies cough, sob, abd pain, n/v. She still has pain w wound. Vac will be changed tomorrow am. Discussed w Rehab- she is making some slow progress in rehab but has had some set back w wounds, fever She denies fever, Chills or localizing symptoms. Stool per ostomy is stable. Has melchor per urology rec No new rash or other localizing symptoms Labs reviewed- vanco trough 11.9 which is acceptable Antimicrobial Start date End date Erythromycin 12/13 Neomycin 12/13 12/13 Polymyxin B 12/14 12/14 Ertapenem 01/10 01/24 Gentamycin 12/14 12/15 Clindamycin 12/14 12/22 Pip/tazo 12/22 01/10 Fluconazole 12/22 12/30 Vancomycin 12/23 12/27 Micafungin 12/30 01/16 Vanco 01/26 active Meropenem 01/26 active Estimated Creatinine Clearance: 100.3 mL/min (based on SCr of 0.56 mg/dL). Medications Scheduled Meds: aspirin chewable tablet 81 mg 81 mg Oral QDAY buPROPion (WELLBUTRIN) tablet 100 mg 100 mg Oral TID busPIRone (BUSPAR) tablet 30 mg 30 mg Oral BID collagenase (SANTYL) topical ointment Topical QDAY docusate (COLACE) capsule 100 mg 100 mg Oral BID ferrous sulfate (FEOSOL, FEROSUL) tablet 325 mg 325 mg Oral TID w/ meals gabapentin (NEURONTIN) capsule 800 mg 800 mg Oral QID insulin aspart U-100 (NOVOLOG FLEXPEN) injection PEN 0-14 Units 0-14 Units Subcutaneous ACHS [START ON 02/01/2018] insulin aspart U-100 (NOVOLOG FLEXPEN) injection PEN 10 Units 10 Units Subcutaneous TID w/ meals insulin aspart U-100 (NOVOLOG FLEXPEN) injection PEN 16 Units 16 Units Subcutaneous TID w/ meals insulin aspart U-100 (NOVOLOG FLEXPEN) injection PEN 3 Units 3 Units Subcutaneous QHS insulin glargine (LANTUS SOLOSTAR, BASAGLAR) injection PEN 20 Units 20 Units Subcutaneous QHS insulin NPH (HUMULIN N KwikPen) injection PEN 12 Units 12 Units Subcutaneous QDAY(21) lactobacillus rhamnosus GG (CULTURELLE) 15 billion cell capsule 1 capsule 1 capsule Oral BID w/meals levothyroxine (SYNTHROID) tablet 200 mcg 200 mcg Oral QDAY before breakfast lidocaine (LIDODERM) 5 % topical patch 2 patch 2 patch Topical QDAY meropenem (MERREM) IVP 500 mg 500 mg Intravenous Q6H* metFORMIN (GLUCOPHAGE) tablet 500 mg 500 mg Oral BID w/meals nortriptyline (PAMELOR) capsule 50 mg 50 mg Oral QHS oxyCODONE (ROXICODONE, OXY-IR) tablet 15 mg 15 mg Oral Once per day on Wed oxyCODONE SR (OXYCONTIN) tablet 10 mg 10 mg Oral BID pantoprazole DR (PROTONIX) tablet 40 mg 40 mg Oral QDAY(21) rivaroxaban (XARELTO) tablet 20 mg 20 mg Oral QDAY w/breakfast simvastatin (ZOCOR) tablet 20 mg 20 mg Oral QHS [START ON 02/01/2018] sitaGLIPtin (JANUVIA) tablet 100 mg 100 mg Oral QDAY sodium chloride PF 0.9% flush 20 mL 20 mL Intravenous FLUSH TID vancomycin (VANCOCIN) 1,250 mg in dextrose 5% (D5W) IVPB 1,250 mg Intravenous Q12H* vancomycin, pharmacy to manage 1 each Service Per Pharmacy vitamin A & D topical ointment Topical BID Continuous Infusions: PRN and Respiratory Meds:acetaminophen Q6H PRN, alum/mag hydroxide/simeth Q6H PRN, calcium carbonate Q4H PRN, milk of magnesia (CONC) Q4H PRN, ondansetron ( ZOFRAN) IV Q6H PRN, oxyCODONE Q4H PRN, pancrelipase 20,000 Units/ sodium bicarbonate 650 mg(#) PRN (Catalogue Librarian from Rx) Physical Examination Vital Signs: Last Vital Signs: 24 Hour Range BP: 139/63 (01/31 1610) Temp: 36.9 C (98.4 F) (01/31 1610) Pulse: 123 (01/31 1610) Respirations: 18 PER MINUTE (01/31 132) SpO2: 98 % (01/31 1610) O2 Delivery: None (Room Air) (01/31 1327) BP: (91-139)/(53-66) Temp: [36.6 C (97.9 F)-38.1 C (100.6 F)] Pulse: [104-123] Respirations: [18 PER MINUTE] SpO2: [92 %-98 %] O2 Delivery: None (Room Air) General appearance: alert, oriented, Lungs: no wheezing Heart: Regular rhythm, mild tachy, no murmur, Abdomen: soft, obese, ostomy Ext: s/p left hemipelvectomy; mild edema RLE Skin: no new rashes noted Wound: Ongoing eschar, open wounds. The mons remains and supra pubic area has more dependent edema today. The labial eschar is stable. No new concerns for cellulitis. Lines: PICC RUE- No erythema, swelling or tenderness Lab Review Hematology Recent Labs 01/29/18 1310 01/31/18 1150 WBC 10.9 -- HGB 8.5* 8.5* HCT 25.8* -- PLTCT 514* -- Chemistry Recent Labs 01/31/18 0548 NA 139 K 3.8 CL 104 CO2 29 BUN 15 CR 0.56 GFR >60 GLU 101* CA 8.8 Microbiology, Radiology and other Diagnostics Review Microbiology data reviewed. Pertinent radiology reviewed Indy Isabel MD Pager [phone] * Adrienne Zarate MD - 01/31/2018 12:51 PM CDT Formatting of this note may be different from the original. Subjective: No acute events overnight. Pain overall controlled. Doing well with therapies. Feeling well. Agreeable to hyperbaric treatments. Objective: Blood pressure 105/53, pulse 104, temperature 36.7 C (98.1 F), height 160 cm (63"), weight 90.4 kg (199 lb 4.7 oz), last menstrual period 01/14, SpO2 96 %. General: AAOx3, NAD Cardiac: tachycardic Respirations: Unlabored Abdomen: soft, nd, nt, colostomy present Extremities: Dressings intact, wound vac holding suction, multiple surrounding eschars and wounds in various stages of healing. WV: 1000 ml/24 hrs No results for input(s): PTT, INR in the last 72 hours. CBC w/Diff Lab Results Component Value Date/Time WBC 10.9 01/29/2018 01:10 PM HGB 8.5 (L) 01/29/2018 01:10 PM HCT 25.8 (L) 01/29/2018 01:10 PM PLTCT 514 (H) 01/29/2018 01:10 PM Basic Metabolic Profile Lab Results Component Value Date/Time NA 139 01/31/2018 05:48 AM K 3.8 01/31/2018 05:48 AM CL 104 01/31/2018 05:48 AM CO2 29 01/31/2018 05:48 AM GAP 6 01/31/2018 05:48 AM Lab Results Component Value Date/Time BUN 15 01/31/2018 05:48 AM CR 0.56 01/31/2018 05:48 AM GLU 101 (H) 01/31/2018 05:48 AM A/P: 52 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 -Management and pain control per rehab -Recommend continue melchor catheter for wound healing -Xarelto for DVT -MWF WV changes with wound team -Recommend ongoing psychology visits per patient request for coping strategies -Compression shorts throughout day as able -Surgical dressings may be changed PRN with dry sterile gauze and hypafix tape -Other wounds per wound team recs -Appreciate nutrition recommendations about corpak duration -Plastic surgery consult- appreciate recs regarding any intervention for abdoulaye- incisional wounds -Recommend admission to IM service for re-hospitalization for hyperbaric txs -no ongoing surgical plans and patient with medical complexity -Will continue to follow, call with questions Adrienne Zarate MD [phone] * Marco Payne MD - 01/31/2018 10:23 AM CDT Formatting of this note may be different from the original. Endocrine Progress Note Today's Date: 01/31/2018 Admission Date: 01/14/2018 LOS: 17 days Impression: Principal Problem: Left hip amputation status Active Problems: Chondrosarcoma (HCC) Acute blood loss as cause of postoperative anemia Depression Anxiety DM (diabetes mellitus) (HCC) 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 Chronic pain Post-op pain Bacteremia Amputated left leg (HCC) Candiduria Assessment/ Recommendations: Pt to potentially DC next week, would like to transition to a regimen similar to CAMP TENDER: Metformin 1000 mg BID and Jardiance 25mg daily. Would not want to re- start Jardiance at this time considering melchor in place and concern for UTI. Will re-start Metformin 500mg BID starting this evening and introduce Januvia 100 mg daily starting tomorrow. Decrease Novolog 10 units TID with meals starting tomorrow morning Continue Novolog MDCF Continue Lantus 20 units qhs CorPak remains in place, has not needed enteral feeding since last . NPH 12 units SQ qhs with nocturnal tube feeds + Novolog 3 units SQ qhs with nocturnal TFs Hold if TFs are interrupted -- enteral feeds have not been given since 01/27/18 Discontinue if TFs are stopped -- enteral feeds remain on orders so I have not yet pulled this insulin from mar Continue LT4 therapy Increase to 200mcg on 01.25.2018 due to continued elevation of TSH / low range normal FT4 Repeat TSH testing in 6 weeks On statin therapy Pt discussed with Dr. Payne ATTESTATION I reviewed the assessment and recommendations with the DESIGN LEAD. The patient was not available to be seen as she was in the hyperbaric treatment chamber We will continue to follow the patient. We are attempting to make the transition back to oral agents. We are avoiding SGLT-2 inhibitors given urinary tract infection risk given the indwelling cathter. Staff name: Marco Payne MD Date: 01/31/2018 HPI: Beata Kaiser is a 52 y.o. female. Beata just finished working with PT this morning, is feeling tired and mild pain in left him. Tolerating diet, doesn't like the food here, but has a good appetite. No hypoglycemia. No enteral feeds since last evening as doing well with PO intake + protein supplements. However, enteral feeds remain on order list at this time / CorPak remains in place. She notes having hot flashes overnight since estrodiol has been stopped, concern for blood clots. Enteral feeds on order list -- Nutren 1.5 to 30ml per hour x 6 hours. 180mL total volume. Last given night. Historical data -- S/p left hemipelvectomy DM2 with stress hyperglycemia HgbA1C 6.5%. CAMP TENDER meds: Metformin + Jardiance / PCP in [place], [place] Past Medical History: Diagnosis Date Anxiety Back pain Depression DM (diabetes mellitus) (HCC) 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 Review of systems: No fevers. Notes night sweats. No SOB. No CP. No nausea/vomiting. Medications Scheduled Meds: aspirin chewable tablet 81 mg 81 mg Oral QDAY buPROPion (WELLBUTRIN) tablet 100 mg 100 mg Oral TID busPIRone (BUSPAR) tablet 30 mg 30 mg Oral BID collagenase (SANTYL) topical ointment Topical QDAY docusate (COLACE) capsule 100 mg 100 mg Oral BID ferrous sulfate (FEOSOL, FEROSUL) tablet 325 mg 325 mg Oral TID w/ meals gabapentin (NEURONTIN) capsule 800 mg 800 mg Oral QID insulin aspart U-100 (NOVOLOG FLEXPEN) injection PEN 0-14 Units 0-14 Units Subcutaneous 5 X Day insulin aspart U-100 (NOVOLOG FLEXPEN) injection PEN 16 Units 16 Units Subcutaneous TID w/ meals insulin aspart U-100 (NOVOLOG FLEXPEN) injection PEN 3 Units 3 Units Subcutaneous QHS insulin glargine (LANTUS SOLOSTAR, BASAGLAR) injection PEN 20 Units 20 Units Subcutaneous QHS insulin NPH (HUMULIN N KwikPen) injection PEN 12 Units 12 Units Subcutaneous QDAY(21) lactobacillus rhamnosus GG (CULTURELLE) 15 billion cell capsule 1 capsule 1 capsule Oral BID w/meals levothyroxine (SYNTHROID) tablet 200 mcg 200 mcg Oral QDAY before breakfast lidocaine (LIDODERM) 5 % topical patch 2 patch 2 patch Topical QDAY meropenem (MERREM) IVP 500 mg 500 mg Intravenous Q6H* nortriptyline (PAMELOR) capsule 50 mg 50 mg Oral QHS oxyCODONE (ROXICODONE, OXY-IR) tablet 15 mg 15 mg Oral Once per day on Wed oxyCODONE SR (OXYCONTIN) tablet 10 mg 10 mg Oral BID pantoprazole DR (PROTONIX) tablet 40 mg 40 mg Oral QDAY(21) rivaroxaban (XARELTO) tablet 20 mg 20 mg Oral QDAY w/breakfast simvastatin (ZOCOR) tablet 20 mg 20 mg Oral QHS sodium chloride PF 0.9% flush 20 mL 20 mL Intravenous FLUSH TID vancomycin (VANCOCIN) 1,250 mg in dextrose 5% (D5W) IVPB 1,250 mg Intravenous Q12H* vancomycin, pharmacy to manage 1 each Service Per Pharmacy vitamin A & D topical ointment Topical BID Continuous Infusions: PRN and Respiratory Meds:acetaminophen Q6H PRN, alum/mag hydroxide/simeth Q6H PRN, calcium carbonate Q4H PRN, milk of magnesia (CONC) Q4H PRN, ondansetron ( ZOFRAN) IV Q6H PRN, oxyCODONE Q4H PRN, pancrelipase 20,000 Units/ sodium bicarbonate 650 mg(#) PRN (Catalogue Librarian from Rx) Objective Vital Signs: Last Filed Vital Signs: 24 Hour Range BP: 105/53 (01/31 441) Temp: 36.7 C (98.1 F) (01/31 441) Pulse: 104 (01/31 441) Respirations: 18 PER MINUTE (01/31 441) SpO2: 96 % (01/31 441) O2 Delivery: None (Room Air) (01/31 441) BP: (91-118)/(53-66) Temp: [36.5 C (97.7 F)-38.1 C (100.6 F)] Pulse: [100-118] Respirations: [16 PER MINUTE-18 PER MINUTE] SpO2: [92 %-98 %] O2 Delivery: None (Room Air) Intensity Pain Scale 0-10 (Pain 1): Asleep (01/31/18 0700) Vitals: 01/29/18 0356 01/30/18 0555 01/30/18 0558 Weight: 100.6 kg (221 lb 11.5 oz) 84.8 kg (186 lb 15.2 oz) 90.4 kg (199 lb 4.7 oz) Physical Exam General: Alert, cooperative, no distress, appears stated age HEENT: CorPak in place Eyes: Conjunctivae/corneas clear. ENT: Moist mucous membranes Lungs: Clear to auscultation bilaterally Heart: Regular rate and rhythm Abdomen: Soft, non-tender, ostomy in place. Extremities: Left jamil-pelvectomy, trace edema in right lower extremity Pulses: 2+ and symmetric TECHNICAL SOLUTION ARCHITECT: Nonfocal, moves all extremities Lab Review Comprehensive Metabolic Profile Lab Results Component Value Date/Time NA 139 01/31/2018 05:48 AM K 3.8 01/31/2018 05:48 AM CL 104 01/31/2018 05:48 AM CO2 29 01/31/2018 05:48 AM GAP 6 01/31/2018 05:48 AM BUN 15 01/31/2018 05:48 AM CR 0.56 01/31/2018 05:48 AM GLU 101 (H) 01/31/2018 05:48 AM Lab Results Component Value Date/Time CA 8.8 01/31/2018 05:48 AM PO4 2.2 01/03/2018 05:10 AM ALBUMIN 2.3 (L) 01/28/2018 06:00 AM TOTPROT 5.5 (L) 01/28/2018 06:00 AM ALKPHOS 110 01/28/2018 06:00 AM AST 38 01/28/2018 06:00 AM ALT 47 01/28/2018 06:00 AM TOTBILI 0.2 (L) 01/28/2018 06:00 AM GFR >60 01/31/2018 05:48 AM GFRAA >60 01/31/2018 05:48 AM Lab Results Component Value Date TRIG 254 (H) 01/13/2018 TSH Date Value Ref Range Status 01/25/2018 10.130 (H) 0.35 - 5.00 MCU/ML Final No results found for: URMALBCRRAT Glucose testing Recent Labs 01/29/18 2104 01/30/18 0310 01/30/18 0649 01/30/18 1200 01/30/18 1652 01/30/18 2110 01/31/18 0410 01/31/18 0656 GLUPOC 234* 155* 118* 176* 215* 170* 117* 119* Hemoglobin A1C Date Value Ref Range Status 12/28/2017 6.5 (H) 4.0 - 6.0 % Final Comment: The ADA recommends that most patients with type 1 and type 2 diabetes maintain an A1c level <7%. Appreciate this consult. Please contact me with any questions. Milly BOGGS, CASTING CARRIER-BC, CDE Endocrine Nurse Practitioner Pager [phone] Office: [phone] * Ruth Allen MD - 01/31/2018 9:36 AM CDT Formatting of this note may be different from the original. ATTESTATION I personally performed the banuelos portions of the E/M visit, discussed case with resident and concur with resident documentation of history, physical exam, assessment, and treatment plan unless otherwise noted. Labs and VS reviewed and stable. Prealbumin still low, meeting protein needs orally per Case Packer And Sealer. Has supplemental tube feeds prn. Pain with sitting in wheelchair at wound sites, monitoring pain meds. Wound vac change today. F/u with wound care about any addn'l recs. May be able to start HBOT during rehab if appropriate. Patient remains medically stable to participate in IRF program. Staff name: Ruth Allen MD Date: 01/31/2018 Physical Medicine & Rehabilitation Progress Note Today's Date: 01/31/2018 Admission Date: 01/14/2018 LOS: 17 days Insurance: [facility] Principal Problem: Left hip amputation status Active Problems: Chondrosarcoma (HCC) Acute blood loss as cause of postoperative anemia Depression Anxiety DM (diabetes mellitus) (HCC) 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 Chronic pain Post-op pain Bacteremia Amputated left leg (HCC) Candiduria Assessment/Plan: Beata Lema a 52 y.o.femalead[facility]with the following issues : 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 Goals: household mobility at wheelchair level min A Tentative discharge date: 02/09/18 Recommended therapy after discharge: home health OT/PT Recommended equipment: Hospital bed, wheelchair/cushion (Numotion eval 01/27/18) , slideboard, ramp - Patient requires hospital bed at discharge. Patient requires positioning of the body in ways not feasible with ordinary beds to in order to alleviate pain. Patient requires frequent repositioning of the body and/or has an immediate need for change in body position. Daily Functional Update: Transfers Device Sit to Stand Transfer: Assistive Device: Sliding Board (01/30/2018 3:00 PM) No Data Recorded Gait Device Assist Required Distance Gait: Assistive Device: IV Pole (12/01/2017 11:00 AM) No Data Recorded Gait Distance: 400 feet (12/01/2017 11:00 AM) Toileting Assist Required Equipment Toilet Transfer Toileting Assist: Total Assist (01/06/2018 1:00 PM) No Data Recorded No Data Recorded Dressing Lower Body LE Dressing Assist: Total Assist (01/27/2018 8:00 AM) Chrondrosarcoma s/p hemipelvectomy and hemisacrectomy Lymphedema wound and residual limb >wound vac in place. Changes M/W/F by wound vac team. PO 15mg oxycodone MWF for [place] changes + lidocaine into sponge during acute hospitalization - wean off IV pain meds as able >Change dressings prn with dry sterile gauze and hypafix tape >vitamin A &D for labia wound, collagenase for left lower abdomen wound healing >Per plastic surgery note 01/24 not recommending further surgical intervention at this time >Per conversation with wound care planning on eval per to see if pt is appropriate for HBOT - d/w Dr. Schneider potential for compression for lymphedema >Orhto ok to begin HBOT from their standpoint Post-op pain in setting of chronic pain Phantom limb pain, neuropathic pain >Tylenol, oxycontin 10mg BID and oxycodone 20mg q3h prn. Lidoderm patch prn. > Continue nortriptyline to 50mg QHS (increased 01/27) > Continue gabapentin 800mg Q6h s/p diverting colostomy - Stool saturating wound. Diverting colostomy done 12/30 >wound/ostomy consulted, working on education with nursing Bladder injury, recent repair - bladder and urethral injuries during hemipelvectomy on 12/14/17 - underwent cystoscopy with left ureteral stent insertion, Bladder neck repair, Urethroplasty and repair of urethral injury, Vaginal closure >continue melchor catheter > Urology f/u after rehab discharge Chest lesions (metastases?) - 11/26/17 CT: few small pulmonary nodules. >plan is to resect the masses in the chest later >CT chest scheduled for 02/08 with f/u with CTS surgery - may need to reschedule GBS bacteremia w/ sepsis due to left hip wound - Fever and leukocytosis began 12/20/17, Bcx 1/2 positive for GBS on 12/23 -Fever 01/21 - blood cx and urine cx NGTD >Completed course of abx 01/23 ertapenem > Multiple fevers 01/26 in pm, started Vanc/Meropenem and obtained blood cx x2 and UA/reflex cx - 09/21 bcx contaminated, rest NGTD DVT - 11/30/17 IVC filter for DVT within the external iliac vein >cont Xarelto ABLA - Transfusion 01/15 and 01/28 1U PRBC - monitor labs T2DM - A1c 6.5%, controlled - CAMP TENDER regimen: Metformin thousand milligrams twice a day, [id number] mg daily >Continue with Lantus 20 units QHS, novolog 12u postmeal, MDCF 5x per day >Continue NPH 30 units with nocturnal tube feeds + Novolog 8 units SQ qhs with nocturnal TFs - please hold NPH if tube feed are held and give at the start of tube feed 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 - CAMP TENDER 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 daily - TSH 2.1 this admission >levothyroxine increased 200 mcg on 01/26 >She will need repeat thyroid function tests in 6-8 weeks Major depressive disorder, recurrent, moderate CLAUDIA Adjustment disorder with mixed anxiety and depressed mood > continue CAMP TENDER Wellbutrin and buspar, started on nortriptyline this admission Nutrition - 01/31 albumin 2.4, Prealbumin 10.0, recheck 02/07 -Pt is currently meeting caloric but not protein needs >Current diet: diabeticand nocturnal tube feeds - Nutren 1.5 to 30ml/hr x 6 hrs + 2 pkt Prosource daily > Case Packer And Sealer consult and d/c tube feeds once eating to meet needs > weekly prealbumin and albumin - remains low > Will hold TF is pt able to consume 2 Prosource daily by mouth with continued Boost GC x 2 and menu food >TF's held 01/29 and 01/30 2/2 good PO intake HLD: holding CAMP TENDER statin Insomnia: nortriptyline 50mg qhs DVT Prophylaxis:Xarelto, will discharge on it Subjective No acute events overnight. Pt sitting in WC in room when seen this am. Pt endorsed pain on her left side from sitting in WC and was planning on transferring to bed shortly. Pt seemed encouraged that TF's were held x2 nights. Will clarify with shaker plate operator how much longer she will need corpak. Objective Vital Signs: Last Filed Vital Signs: 24 Hour Range BP: 105/53 (01/31 441) Temp: 36.7 C (98.1 F) (01/31 441) Pulse: 104 (01/31 441) Respirations: 18 PER MINUTE (01/31 441) SpO2: 96 % (01/31 441) O2 Delivery: None (Room Air) (01/31 441) BP: (91-118)/(53-66) Temp: [36.5 C (97.7 F)-38.1 C (100.6 F)] Pulse: [100-118] Respirations: [16 PER MINUTE-18 PER MINUTE] SpO2: [92 %-98 %] O2 Delivery: None (Room Air) Intensity Pain Scale 0-10 (Pain 1): Asleep (01/31/18 0700) Vitals: 01/29/18 0356 01/30/18 0555 01/30/18 0558 Weight: 100.6 kg (221 lb 11.5 oz) 84.8 kg (186 lb 15.2 oz) 90.4 kg (199 lb 4.7 oz) Intake/Output Summary: (Last 24 hours) Intake/Output Summary (Last 24 hours) at 01/31/18 0936 Last data filed at 01/31/18 0900 Gross per 24 hour Intake 1530 ml Output 4800 ml Net -3270 ml Stool Occurrence: 1 Oral Diet Order: Diabetic [id number] Kcal/day (60 g Carb/meal, 30 g Carb/HS snack ) Last BM Date: 01/30/18 Lab: Results for orders placed or performed during the hospital encounter of (from the past 24 hour(s)) POC GLUCOSE Collection Time: 01/30/18 12:00 PM # # Low-High Glucose, POC 176 (H) 70 - 100 MG/DL POC GLUCOSE Collection Time: 01/30/18 4:52 PM # # Low-High Glucose, POC 215 (H) 70 - 100 MG/DL POC GLUCOSE Collection Time: 01/30/18 9:10 PM # # Low-High Glucose, POC 170 (H) 70 - 100 MG/DL POC GLUCOSE Collection Time: 01/31/18 4:10 AM # # Low-High Glucose, POC 117 (H) 70 - 100 MG/DL BASIC METABOLIC PANEL CELLULAR THERAPEUTICS Collection Time: 01/31/18 5:48 AM # # Low-High Sodium 139 137 - 147 MMOL/L Potassium 3.8 3.5 - 5.1 MMOL/L Chloride 104 98 - 110 MMOL/L CO2 29 21 - 30 MMOL/L Anion Gap 6 3 - 12 Glucose 101 (H) 70 - 100 MG/DL Blood Urea Nitrogen 15 7 - 25 MG/DL Creatinine 0.56 0.4 - 1.00 MG/DL Calcium 8.8 8.5 - 10.6 MG/DL eGFR Non >60 >60 mL/min eGFR >60 >60 mL/min PREALBUMIN Collection Time: 01/31/18 5:48 AM # # Low-High Prealbumin 10.0 (L) 17 - 34 MG/DL POC GLUCOSE Collection Time: 01/31/18 6:56 AM # # Low-High Glucose, POC 119 (H) 70 - 100 MG/DL Scheduled Meds: aspirin chewable tablet 81 mg 81 mg Oral QDAY buPROPion (WELLBUTRIN) tablet 100 mg 100 mg Oral TID busPIRone (BUSPAR) tablet 30 mg 30 mg Oral BID collagenase (SANTYL) topical ointment Topical QDAY docusate (COLACE) capsule 100 mg 100 mg Oral BID ferrous sulfate (FEOSOL, FEROSUL) tablet 325 mg 325 mg Oral TID w/ meals gabapentin (NEURONTIN) capsule 800 mg 800 mg Oral QID insulin aspart U-100 (NOVOLOG FLEXPEN) injection PEN 0-14 Units 0-14 Units Subcutaneous 5 X Day insulin aspart U-100 (NOVOLOG FLEXPEN) injection PEN 16 Units 16 Units Subcutaneous TID w/ meals insulin aspart U-100 (NOVOLOG FLEXPEN) injection PEN 3 Units 3 Units Subcutaneous QHS insulin glargine (LANTUS SOLOSTAR, BASAGLAR) injection PEN 20 Units 20 Units Subcutaneous QHS insulin NPH (HUMULIN N KwikPen) injection PEN 12 Units 12 Units Subcutaneous QDAY(21) lactobacillus rhamnosus GG (CULTURELLE) 15 billion cell capsule 1 capsule 1 capsule Oral BID w/meals levothyroxine (SYNTHROID) tablet 200 mcg 200 mcg Oral QDAY before breakfast lidocaine (LIDODERM) 5 % topical patch 2 patch 2 patch Topical QDAY meropenem (MERREM) IVP 500 mg 500 mg Intravenous Q6H* nortriptyline (PAMELOR) capsule 50 mg 50 mg Oral QHS oxyCODONE (ROXICODONE, OXY-IR) tablet 15 mg 15 mg Oral Once per day on Wed oxyCODONE SR (OXYCONTIN) tablet 10 mg 10 mg Oral BID pantop[address]ole DR (PROTONIX) tablet 40 mg 40 mg Oral QDAY(21) rivaroxaban (XARELTO) tablet 20 mg 20 mg Oral QDAY w/breakfast simvastatin (ZOCOR) tablet 20 mg 20 mg Oral QHS sodium chloride PF 0.9% flush 20 mL 20 mL Intravenous FLUSH TID vancomycin (VANCOCIN) 1,250 mg in dextrose 5% (D5W) IVPB 1,250 mg Intravenous Q12H* vancomycin, pharmacy to manage 1 each Service Per Pharmacy vitamin A & D topical ointment Topical BID Continuous Infusions: PRN and Respiratory Meds:acetaminophen Q6H PRN, alum/mag hydroxide/simeth Q6H PRN, calcium carbonate Q4H PRN, milk of magnesia (CONC) Q4H PRN, ondansetron ( ZOFRAN) IV Q6H PRN, oxyCODONE Q4H PRN, pancrelipase 20,000 Units/ sodium bicarbonate 650 mg(#) PRN (Catalogue Librarian from Rx) Physical Exam VS: BP 105/53 (BP Source: Arm, Left) | Pulse 104 | Temp 36.7 C (98.1 F) | Ht 160 cm (63") | Wt 90.4 kg (199 lb 4.7 oz) Comment: with 2 green blankets, pt personal blanket; phone, wound vac | LMP 01/14/2013 | SpO2 96% | BMI 35.30 kg/m Gen: awake, alert, NAD, corpak in place HEENT: left ear w/o erythema or drainage. CV: RRR, no murmur Pulm: CTAB, no w/r Abd: nondistended, nontender Extremities: mild edema rle, s/p hemipelvectomy on left with dressings and wound vac in place Psych: Pleasent mood, mild distress 2/2 pain this am Therapy Notes & Labs Reviewed. * Serenity Concepcion MD - 01/30/2018 2:21 PM CDT Formatting of this note may be different from the original. Endocrine Progress Note Today's Date: 01/30/2018 Admission Date: 01/14/2018 LOS: 16 days Impression: Principal Problem: Left hip amputation status Active Problems: Chondrosarcoma (HCC) Acute blood loss as cause of postoperative anemia Depression Anxiety DM (diabetes mellitus) (HCC) 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 Chronic pain Post-op pain Bacteremia Amputated left leg (HCC) Candiduria Recommendations: NPH 12 units SQ qhs with nocturnal tube feeds + Novolog 3 units SQ qhs with nocturnal TFs Hold if TFs are interrupted -- not given last 2 nights as enteral feeds have not been given Discontinue if TFs are stopped -- enteral feeds remain on orders so I have not yet pulled this insulin from mar Lantus 20 units SQ qhs Continue Novolog 16 units SQ TID with meals Novolog MDCF Continue LT4 therapy Increase to 200mcg on 01.25.2018 due to continued elevation of TSH / low range normal FT4 Repeat TSH testing in 6 weeks On statin therapy HPI: Beata Kaiser is a 52 y.o. female. Beata is doing well this afternoon. Tolerating diet. No hypoglycemia. No enteral feeds since evening as doing well with PO intake + protein supplements. However, enteral feeds remain on order list at this time / NGT remains in place. Enteral feeds on order list -- Nutren 1.5 to 30ml per hour x 6 hours. 180mL total volume. Last given night. Historical data -- S/p left hemipelvectomy DM2 with stress hyperglycemia HgbA1C 6.5%. CAMP TENDER meds: Metformin + Jardiance / PCP in [place], [place] Past Medical History: Diagnosis Date Anxiety Back pain Depression DM (diabetes mellitus) (HCC) 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 Review of systems: No fevers. Notes night sweats. No SOB. No CP. No nausea/vomiting. Medications Scheduled Meds: aspirin chewable tablet 81 mg 81 mg Oral QDAY buPROPion (WELLBUTRIN) tablet 100 mg 100 mg Oral TID busPIRone (BUSPAR) tablet 30 mg 30 mg Oral BID collagenase (SANTYL) topical ointment Topical QDAY docusate (COLACE) capsule 100 mg 100 mg Oral BID ferrous sulfate (FEOSOL, FEROSUL) tablet 325 mg 325 mg Oral TID w/ meals gabapentin (NEURONTIN) capsule 800 mg 800 mg Oral QID insulin aspart U-100 (NOVOLOG FLEXPEN) injection PEN 0-14 Units 0-14 Units Subcutaneous 5 X Day insulin aspart U-100 (NOVOLOG FLEXPEN) injection PEN 16 Units 16 Units Subcutaneous TID w/ meals insulin aspart U-100 (NOVOLOG FLEXPEN) injection PEN 3 Units 3 Units Subcutaneous QHS insulin glargine (LANTUS SOLOSTAR, BASAGLAR) injection PEN 20 Units 20 Units Subcutaneous QHS insulin NPH (HUMULIN N KwikPen) injection PEN 12 Units 12 Units Subcutaneous QDAY(21) lactobacillus rhamnosus GG (CULTURELLE) 15 billion cell capsule 1 capsule 1 capsule Oral BID w/meals levothyroxine (SYNTHROID) tablet 200 mcg 200 mcg Oral QDAY before breakfast lidocaine (LIDODERM) 5 % topical patch 2 patch 2 patch Topical QDAY meropenem (MERREM) IVP 500 mg 500 mg Intravenous Q6H* nortriptyline (PAMELOR) capsule 50 mg 50 mg Oral QHS oxyCODONE (ROXICODONE, OXY-IR) tablet 15 mg 15 mg Oral Once per day on Wed oxyCODONE SR (OXYCONTIN) tablet 10 mg 10 mg Oral BID pantop[address]ole DR (PROTONIX) tablet 40 mg 40 mg Oral QDAY(21) rivaroxaban (XARELTO) tablet 20 mg 20 mg Oral QDAY w/breakfast simvastatin (ZOCOR) tablet 20 mg 20 mg Oral QHS sodium chloride PF 0.9% flush 20 mL 20 mL Intravenous FLUSH TID vancomycin (VANCOCIN) 1,250 mg in dextrose 5% (D5W) IVPB 1,250 mg Intravenous Q12H* vancomycin, pharmacy to manage 1 each Service Per Pharmacy vitamin A & D topical ointment Topical BID Continuous Infusions: PRN and Respiratory Meds:acetaminophen Q6H PRN, alum/mag hydroxide/simeth Q6H PRN, calcium carbonate Q4H PRN, milk of magnesia (CONC) Q4H PRN, ondansetron ( ZOFRAN) IV Q6H PRN, oxyCODONE Q4H PRN, pancrelipase 20,000 Units/ sodium bicarbonate 650 mg(#) PRN (Catalogue Librarian from Rx) Objective Vital Signs: Last Filed Vital Signs: 24 Hour Range BP: 107/53 (01/30 1205) Temp: 36.5 C (97.7 F) (01/30 1205) Pulse: 100 (01/30 1205) Respirations: 16 PER MINUTE (01/30 120) SpO2: 96 % (01/30 1205) O2 Delivery: None (Room Air) (01/30 1205) BP: (106-115)/(51-65) Temp: [36.5 C (97.7 F)-37.4 C (99.3 F)] Pulse: [100-114] Respirations: [16 PER MINUTE-20 PER MINUTE] SpO2: [94 %-96 %] O2 Delivery: None (Room Air) Intensity Pain Scale 0-10 (Pain 1): 6 (01/30/18 0749) Vitals: 01/29/18 0356 01/30/18 0555 01/30/18 0558 Weight: 100.6 kg (221 lb 11.5 oz) 84.8 kg (186 lb 15.2 oz) 90.4 kg (199 lb 4.7 oz) Physical Exam Gen-A&O x 3 in nad HEENT-ngt in place CV-slightly tachy Pulm-no distress Back-wound vac in place Abd-ostomy in place MS-s/p left jamil-pelvectomy Lab Review Comprehensive Metabolic Profile Lab Results Component Value Date/Time NA 135 (L) 01/28/2018 06:00 AM K 3.8 01/28/2018 06:00 AM CL 99 01/28/2018 06:00 AM CO2 29 01/28/2018 06:00 AM GAP 7 01/28/2018 06:00 AM BUN 14 01/28/2018 06:00 AM CR 0.60 01/28/2018 06:00 AM GLU 153 (H) 01/28/2018 06:00 AM Lab Results Component Value Date/Time CA 8.6 01/28/2018 06:00 AM PO4 2.2 01/03/2018 05:10 AM ALBUMIN 2.3 (L) 01/28/2018 06:00 AM TOTPROT 5.5 (L) 01/28/2018 06:00 AM ALKPHOS 110 01/28/2018 06:00 AM AST 38 01/28/2018 06:00 AM ALT 47 01/28/2018 06:00 AM TOTBILI 0.2 (L) 01/28/2018 06:00 AM GFR >60 01/28/2018 06:00 AM GFRAA >60 01/28/2018 06:00 AM Lab Results Component Value Date TRIG 254 (H) 01/13/2018 TSH Date Value Ref Range Status 01/25/2018 10.130 (H) 0.35 - 5.00 MCU/ML Final No results found for: URMALBCRRAT Glucose testing Recent Labs 01/29/18 0309 01/29/18 0652 01/29/18 1148 01/29/18 1651 01/29/18 2104 01/30/18 0310 01/30/18 0649 01/30/18 1200 GLUPOC 157* 144* 229* 200* 234* 155* 118* 176* Hemoglobin A1C Date Value Ref Range Status 12/28/2017 6.5 (H) 4.0 - 6.0 % Final Comment: The ADA recommends that most patients with type 1 and type 2 diabetes maintain an A1c level <7%. Serenity Concepcion MD [phone] * Arnaldo Delacruz MD - 01/30/2018 9:31 AM CDT Formatting of this note may be different from the original. Physical Medicine & Rehabilitation Progress Note Today's Date: 01/30/2018 Admission Date: 01/14/2018 LOS: 16 days Insurance: [facility] Principal Problem: Left hip amputation status Active Problems: Chondrosarcoma (HCC) Acute blood loss as cause of postoperative anemia Depression Anxiety DM (diabetes mellitus) (HCC) 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 Chronic pain Post-op pain Bacteremia Amputated left leg (HCC) Candiduria Assessment/Plan: Beata Lema a 52 y.o.femalead[facility]with the following issues : 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 Goals: household mobility at wheelchair level min A Tentative discharge date: 02/09/18 Recommended therapy after discharge: home health OT/PT Recommended equipment: Hospital bed, wheelchair/cushion (Numotion eval 01/27/18) , slideboard, ramp Daily Functional Update: Transfers Device Sit to Stand Transfer: Assistive Device: Sliding Board (Use of drawsheet) (01/28/2018 9:00 AM ) No Data Recorded Gait Device Assist Required Distance Gait: Assistive Device: IV Pole (12/01/2017 11:00 AM) No Data Recorded Gait Distance: 400 feet (12/01/2017 11:00 AM) Toileting Assist Required Equipment Toilet Transfer Toileting Assist: Total Assist (01/06/2018 1:00 PM) No Data Recorded No Data Recorded Dressing Lower Body LE Dressing Assist: Total Assist (01/27/2018 8:00 AM) Chrondrosarcoma s/p hemipelvectomy and hemisacrectomy Lymphedema wound and residual limb >wound vac in place. Changes M/W/F by wound vac team. PO 15mg oxycodone MWF for [place] changes + lidocaine into sponge during acute hospitalization - wean off IV pain meds as able >Change dressings prn with dry sterile gauze and hypafix tape >vitamin A &D for labia wound, collagenase for left lower abdomen wound healing >Per plastic surgery note 01/24 not recommending further surgical intervention at this time >Per conversation with wound care planning on eval per to see if pt is appropriate for HBOT - d/w Dr. Schneider potential for compression for lymphedema Post-op pain in setting of chronic pain Phantom limb pain, neuropathic pain >Tylenol, oxycontin 10mg BID and oxycodone 20mg q3h prn. Lidoderm patch prn. > Continue nortriptyline to 50mg QHS (increased 01/27) > Continue gabapentin 800mg Q6h s/p diverting colostomy - Stool saturating wound. Diverting colostomy done 12/30 >wound/ostomy consulted, working on education with nursing Bladder injury, recent repair - bladder and urethral injuries during hemipelvectomy on 12/14/17 - underwent cystoscopy with left ureteral stent insertion, Bladder neck repair, Urethroplasty and repair of urethral injury, Vaginal closure >continue melchor catheter > Urology f/u after rehab discharge Chest lesions (metastases?) - 11/26/17 CT: few small pulmonary nodules. >plan is to resect the masses in the chest later >CT chest scheduled for 02/08 with f/u with CTS surgery GBS bacteremia w/ sepsis due to left hip wound - Fever and leukocytosis began 12/20/17, Bcx 1/2 positive for GBS on 12/23 -Fever 01/21 - blood cx and urine cx NGTD >Completed course of abx 01/23 ertapenem > Multiple fevers 01/26 in pm, started Vanc/Meropenem and obtained blood cx x2 and UA/reflex cx DVT - 11/30/17 IVC filter for DVT within the external iliac vein >cont Xarelto ABLA - Transfusion 01/15 1U PRBC - Hg 6.5 5/11 >Transfuse 1u PRBC T2DM - A1c 6.5%, controlled - CAMP TENDER regimen: Metformin thousand milligrams twice a day, [id number] mg daily >Continue with Lantus 20 units QHS, novolog 12u postmeal, MDCF 5x per day >Continue NPH 30 units with nocturnal tube feeds + Novolog 8 units SQ qhs with nocturnal TFs - please hold NPH if tube feed are held and give at the start of tube feed 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 - CAMP TENDER 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 daily - TSH 2.1 this admission >levothyroxine increased 200 mcg on 01/26 >She will need repeat thyroid function tests in 6-8 weeks Major depressive disorder, recurrent, moderate CLAUDIA Adjustment disorder with mixed anxiety and depressed mood > continue CAMP TENDER Wellbutrin and buspar, started on nortriptyline this admission Nutrition - 01/24 albumin 2.4, Prealbumin 11.0, recheck 01/31 -Pt is currently meeting caloric but not protein needs >Current diet: diabeticand nocturnal tube feeds - Nutren 1.5 to 30ml/hr x 6 hrs + 2 pkt Prosource daily > Case Packer And Sealer consult and d/c tube feeds once eating to meet needs > weekly prealbumin and albumin > Will hold TF is pt able to consume 2 Prosource daily by mouth with continued Boost GC x 2 and menu food HLD: holding CAMP TENDER statin Insomnia: nortriptyline 50mg qhs DVT Prophylaxis:Xarelto, will discharge on it Subjective No acute events overnight. She states she is eating more, and didn't have to have TFs last night. She denies N&V, COB, CP. She reports some aching pain over her amputation site this AM (persistent and stable). Objective Vital Signs: Last Filed Vital Signs: 24 Hour Range BP: 113/65 (01/30 750) Temp: 36.7 C (98.1 F) (01/30 750) Pulse: 111 (01/30 750) Respirations: 18 PER MINUTE (01/30 750) SpO2: 94 % (01/30 750) O2 Delivery: None (Room Air) (01/30 750) BP: (106-115)/(51-65) Temp: [36.7 C (98.1 F)-37.4 C (99.3 F)] Pulse: [105-114] Respirations: [16 PER MINUTE-20 PER MINUTE] SpO2: [94 %-96 %] O2 Delivery: None (Room Air) Intensity Pain Scale 0-10 (Pain 1): Asleep (01/30/18 0313) Vitals: 01/29/18 0356 01/30/18 0555 01/30/18 0558 Weight: 100.6 kg (221 lb 11.5 oz) 84.8 kg (186 lb 15.2 oz) 90.4 kg (199 lb 4.7 oz) Intake/Output Summary: (Last 24 hours) Intake/Output Summary (Last 24 hours) at 01/30/18 0931 Last data filed at 01/30/18 0900 Gross per 24 hour Intake 540 ml Output 4450 ml Net -3910 ml Stool Occurrence: 1 Oral Diet Order: Diabetic [id number] Kcal/day (60 g Carb/meal, 30 g Carb/HS snack ) Last BM Date: 01/30/18 Lab: Results for orders placed or performed during the hospital encounter of (from the past 24 hour(s)) POC GLUCOSE Collection Time: 01/29/18 11:48 AM # # Low-High Glucose, POC 229 (H) 70 - 100 MG/DL CBC Collection Time: 01/29/18 1:10 PM # # Low-High White Blood Cells 10.9 4.5 - 11.0 K/UL RBC 3.18 (L) 4.0 - 5.0 M/UL Hemoglobin 8.5 (L) 12.0 - 15.0 GM/DL Hematocrit 25.8 (L) 36 - 45 % MCV 81.0 80 - 100 FL MCH 26.8 26 - 34 PG MCHC 33.1 32.0 - 36.0 G/DL RDW 18.4 (H) 11 - 15 % Platelet Count 514 (H) 150 - 400 K/UL MPV 7.2 7 - 11 FL POC GLUCOSE Collection Time: 01/29/18 4:51 PM # # Low-High Glucose, POC 200 (H) 70 - 100 MG/DL POC GLUCOSE Collection Time: 01/29/18 9:04 PM # # Low-High Glucose, POC 234 (H) 70 - 100 MG/DL POC GLUCOSE Collection Time: 01/30/18 3:10 AM # # Low-High Glucose, POC 155 (H) 70 - 100 MG/DL POC GLUCOSE Collection Time: 01/30/18 6:49 AM # # Low-High Glucose, POC 118 (H) 70 - 100 MG/DL Scheduled Meds: aspirin chewable tablet 81 mg 81 mg Oral QDAY buPROPion (WELLBUTRIN) tablet 100 mg 100 mg Oral TID busPIRone (BUSPAR) tablet 30 mg 30 mg Oral BID collagenase (SANTYL) topical ointment Topical QDAY docusate (COLACE) capsule 100 mg 100 mg Oral BID ferrous sulfate (FEOSOL, FEROSUL) tablet 325 mg 325 mg Oral TID w/ meals gabapentin (NEURONTIN) capsule 800 mg 800 mg Oral QID insulin aspart U-100 (NOVOLOG FLEXPEN) injection PEN 0-14 Units 0-14 Units Subcutaneous 5 X Day insulin aspart U-100 (NOVOLOG FLEXPEN) injection PEN 16 Units 16 Units Subcutaneous TID w/ meals insulin aspart U-100 (NOVOLOG FLEXPEN) injection PEN 3 Units 3 Units Subcutaneous QHS insulin glargine (LANTUS SOLOSTAR, BASAGLAR) injection PEN 20 Units 20 Units Subcutaneous QHS insulin NPH (HUMULIN N KwikPen) injection PEN 12 Units 12 Units Subcutaneous QDAY(21) lactobacillus rhamnosus GG (CULTURELLE) 15 billion cell capsule 1 capsule 1 capsule Oral BID w/meals levothyroxine (SYNTHROID) tablet 200 mcg 200 mcg Oral QDAY before breakfast lidocaine (LIDODERM) 5 % topical patch 2 patch 2 patch Topical QDAY meropenem (MERREM) IVP 500 mg 500 mg Intravenous Q6H* nortriptyline (PAMELOR) capsule 50 mg 50 mg Oral QHS oxyCODONE (ROXICODONE, OXY-IR) tablet 15 mg 15 mg Oral Once per day on Wed oxyCODONE SR (OXYCONTIN) tablet 10 mg 10 mg Oral BID pantoprazole DR (PROTONIX) tablet 40 mg 40 mg Oral QDAY(21) rivaroxaban (XARELTO) tablet 20 mg 20 mg Oral QDAY w/breakfast simvastatin (ZOCOR) tablet 20 mg 20 mg Oral QHS sodium chloride PF 0.9% flush 20 mL 20 mL Intravenous FLUSH TID vancomycin (VANCOCIN) 1,250 mg in dextrose 5% (D5W) IVPB 1,250 mg Intravenous Q12H* vancomycin, pharmacy to manage 1 each Service Per Pharmacy vitamin A & D topical ointment Topical BID Continuous Infusions: PRN and Respiratory Meds:acetaminophen Q6H PRN, alum/mag hydroxide/simeth Q6H PRN, calcium carbonate Q4H PRN, milk of magnesia (CONC) Q4H PRN, ondansetron ( ZOFRAN) IV Q6H PRN, oxyCODONE Q4H PRN, pancrelipase 20,000 Units/ sodium bicarbonate 650 mg(#) PRN (Catalogue Librarian from Rx) Physical Exam VS: BP 113/65 (BP Source: Arm, Left) | Pulse 111 | Temp 36.7 C (98.1 F) | Ht 160 cm (63") | Wt 90.4 kg (199 lb 4.7 oz) Comment: with 2 green blankets, pt personal blanket; phone, wound vac | LMP 01/14/2013 | SpO2 94% | BMI 35.30 kg/m Gen: awake, alert, NAD, corpak in place HEENT: left ear w/o erythema or drainage. CV: RRR, no murmur Pulm: CTAB, no w/r Abd: nondistended, nontender Extremities: mild edema rle, s/p hemipelvectomy on left with dressings and wound vac in place Psych: Pleasent mood, mild lethargy this AM, but appropriate participation Therapy Notes & Labs Reviewed. * Evelia Delacruz - 01/29/2018 10:00 PM CDT Tube feeding held between 2200 and 0400, patient had 2 prosource protein liquid and 2 Boost GC drink. NPH insulin and scheduled novolog 3 units at 2200 held. Pt had good blood sugar control overnight and did not need a correction dose at 0300. Corpak flushed with 60ml for patency. Will continue to monitor. * Shilpi Johnston, PHARMD - 01/29/2018 1:33 PM CDT Formatting of this note may be different from the original. Pharmacy Vancomycin Note Subjective: Beata Kaiser is a 52 y.o. female being treated for skin and soft tissue infection. Objective: Current Vancomycin Orders Medication Dose Route Frequency vancomycin (VANCOCIN) 1,250 mg in dextrose 5% (D5W) IVPB 1,250 mg Intravenous Q12H* vancomycin, pharmacy to manage 1 each Service Per Pharmacy Day of Vancomycin therapy: 4 White Blood Cells Date/Time Value Ref Range Status 01/28/2018 0600 12.3 (H) 4.5 - 11.0 K/UL Final Creatinine Date/Time Value Ref Range Status 01/28/2018 0600 0.60 0.4 - 1.00 MG/DL Final Blood Urea Nitrogen Date/Time Value Ref Range Status 01/28/2018 0600 14 7 - 25 MG/DL Final Estimated CrCl: ~ 100 mL/min Dosing BW: 100 kg Drug Levels: Vancomycin Trough Date/Time Value Ref Range Status 01/28/2018 1215 11.9 10.0 - 20.0 MCG/ML Final Assessment: Target levels for this patient: 10-15mcg/ml per ID request Evaluation of level(s): The vancomycin trough drawn yesterday was appropriatly timed and is within the desired goal range. Plan: 1. Will continue the current dose of vancomycin 1250mg IV q12 hours. 2. Next scheduled level(s): To be determined by the team pharmacist. 3. Pharmacy will continue to monitor and adjust therapy as needed. PIYUSH ManD, [facility] 01/29/2018 * Arnaldo Delacruz MD - 01/29/2018 9:37 AM CDT Formatting of this note may be different from the original. Physical Medicine & Rehabilitation Progress Note Today's Date: 01/29/2018 Admission Date: 01/14/2018 LOS: 15 days Insurance: [facility] Principal Problem: Left hip amputation status Active Problems: Chondrosarcoma (HCC) Acute blood loss as cause of postoperative anemia Depression Anxiety DM (diabetes mellitus) (HCC) 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 Chronic pain Post-op pain Bacteremia Amputated left leg (HCC) Candiduria Assessment/Plan: Beata Lema a 52 y.o.female[facility] the following issues : 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 Goals: household mobility at wheelchair level min A Tentative discharge date: 02/09/18 Recommended therapy after discharge: home health OT/PT Recommended equipment: Hospital bed, wheelchair/cushion (Numotion eval 01/27/18) , slideboard, ramp Daily Functional Update: Transfers Device Sit to Stand Transfer: Assistive Device: Sliding Board (Use of drawsheet) (01/28/2018 9:00 AM ) No Data Recorded Gait Device Assist Required Distance Gait: Assistive Device: IV Pole (12/01/2017 11:00 AM) No Data Recorded Gait Distance: 400 feet (12/01/2017 11:00 AM) Toileting Assist Required Equipment Toilet Transfer Toileting Assist: Total Assist (01/06/2018 1:00 PM) No Data Recorded No Data Recorded Dressing Lower Body LE Dressing Assist: Total Assist (01/27/2018 8:00 AM) Chrondrosarcoma s/p hemipelvectomy and hemisacrectomy Lymphedema wound and residual limb >wound vac in place. Changes M/W/F by wound vac team. PO 15mg oxycodone MWF for [place] changes + lidocaine into sponge during acute hospitalization - wean off IV pain meds as able >Change dressings prn with dry sterile gauze and hypafix tape >vitamin A &D for labia wound, collagenase for left lower abdomen wound healing >Per plastic surgery note 01/24 not recommending further surgical intervention at this time >Per conversation with wound care planning on ev per to see if pt is appropriate for HBOT - d/w Dr. Schneider potential for compression for lymphedema Post-op pain in setting of chronic pain Phantom limb pain, neuropathic pain >Tylenol, oxycontin 10mg BID and oxycodone 20mg q3h prn. Lidoderm patch prn. > Continue nortriptyline to 50mg QHS (increased 01/27) > Continue gabapentin 800mg Q6h s/p diverting colostomy - Stool saturating wound. Diverting colostomy done 12/30 >wound/ostomy consulted, working on education with nursing Bladder injury, recent repair - bladder and urethral injuries during hemipelvectomy on 12/14/17 - underwent cystoscopy with left ureteral stent insertion, Bladder neck repair, Urethroplasty and repair of urethral injury, Vaginal closure >continue melchor catheter > Urology f/u after rehab discharge Chest lesions (metastases?) - 11/26/17 CT: few small pulmonary nodules. >plan is to resect the masses in the chest later >CT chest scheduled for 02/08 with f/u with CTS surgery GBS bacteremia w/ sepsis due to left hip wound - Fever and leukocytosis began 12/20/17, Bcx 1/2 positive for GBS on 12/23 -Fever 01/21 - blood cx and urine cx NGTD >Completed course of abx 01/23 ertapenem > Multiple fevers 01/26 in pm, started Vanc/Meropenem and obtained blood cx x2 and UA/reflex cx DVT - 11/30/17 IVC filter for DVT within the external iliac vein >cont Xarelto ABLA - Transfusion 01/15 1U PRBC - Hg 6.5 01/28 >Transfuse 1u PRBC T2DM - A1c 6.5%, controlled - CAMP TENDER regimen: Metformin thousand milligrams twice a day, [id number] mg daily >Continue with Lantus 20 units QHS, novolog 12u postmeal, MDCF 5x per day >Continue NPH 30 units with nocturnal tube feeds + Novolog 8 units SQ qhs with nocturnal TFs - please hold NPH if tube feed are held and give at the start of tube feed 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 - CAMP TENDER 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 daily - TSH 2.1 this admission >levothyroxine increased 200 mcg on 01/26 >She will need repeat thyroid function tests in 6-8 weeks Major depressive disorder, recurrent, moderate CLAUDIA Adjustment disorder with mixed anxiety and depressed mood > continue CAMP TENDER Wellbutrin and buspar, started on nortriptyline this admission Nutrition - 01/24 albumin 2.4, Prealbumin 11.0, recheck 01/31 -Pt is currently meeting caloric but not protein needs >Current diet: diabeticand nocturnal tube feeds - Nutren 1.5 to 30ml/hr x 6 hrs + 2 pkt Prosource daily > Case Packer And Sealer consult and d/c tube feeds once eating to meet needs > weekly prealbumin and albumin > Will hold TF is pt able to consume 2 Prosource daily by mouth with continued Boost GC x 2 and menu food HLD: holding CAMP TENDER statin Insomnia: nortriptyline 50mg qhs DVT Prophylaxis:Xarelto, will discharge on it Subjective No acute events overnight. She slept well. She denies N&V, COB, CP. Objective Vital Signs: Last Filed Vital Signs: 24 Hour Range BP: 110/50 (01/30 356) Temp: 37.2 C (99 F) (01/30 356) Pulse: 110 (01/30 356) Respirations: 18 PER MINUTE (01/30 356) SpO2: 94 % (01/30 356) O2 Delivery: None (Room Air) (01/30 356) BP: (95-110)/(50-72) Temp: [36.6 C (97.8 F)-37.4 C (99.3 F)] Pulse: [110-125] Respirations: [18 PER MINUTE-20 PER MINUTE] SpO2: [92 %-95 %] O2 Delivery: None (Room Air) Intensity Pain Scale 0-10 (Pain 1): 7 (01/29/18 0747) Vitals: 01/27/18 0721 01/28/18 0444 01/29/18355 Weight: 101.8 kg (224 lb 6.9 oz) 95.3 kg (210 lb 1.6 oz) 100.6 kg (221 lb 11.5 oz) Intake/Output Summary: (Last 24 hours) Intake/Output Summary (Last 24 hours) at 01/29/18 0937 Last data filed at 01/29/18 0800 Gross per 24 hour Intake 1855 ml Output 5150 ml Net -3295 ml Stool Occurrence: 1 Oral Diet Order: Diabetic [id number] Kcal/day (60 g Carb/meal, 30 g Carb/HS snack ) Last BM Date: 01/28/18 Lab: Results for orders placed or performed during the hospital encounter of (from the past 24 hour(s)) POC GLUCOSE Collection Time: 01/28/18 12:14 PM # # Low-High Glucose, POC 156 (H) 70 - 100 MG/DL VANCOMYCIN TROUGH Collection Time: 01/28/18 12:15 PM # # Low-High Vancomycin Trough 11.9 10.0 - 20.0 MCG/ML POC GLUCOSE Collection Time: 01/28/18 5:12 PM # # Low-High Glucose, POC 119 (H) 70 - 100 MG/DL POC GLUCOSE Collection Time: 01/28/18 9:42 PM # # Low-High Glucose, POC 229 (H) 70 - 100 MG/DL POC GLUCOSE Collection Time: 01/29/18 3:09 AM # # Low-High Glucose, POC 157 (H) 70 - 100 MG/DL POC GLUCOSE Collection Time: 01/29/18 6:52 AM # # Low-High Glucose, POC 144 (H) 70 - 100 MG/DL Scheduled Meds: aspirin chewable tablet 81 mg 81 mg Oral QDAY buPROPion (WELLBUTRIN) tablet 100 mg 100 mg Oral TID busPIRone (BUSPAR) tablet 30 mg 30 mg Oral BID collagenase (SANTYL) topical ointment Topical QDAY docusate (COLACE) capsule 100 mg 100 mg Oral BID ferrous sulfate (FEOSOL, FEROSUL) tablet 325 mg 325 mg Oral TID w/ meals gabapentin (NEURONTIN) capsule 800 mg 800 mg Oral QID insulin aspart U-100 (NOVOLOG FLEXPEN) injection PEN 0-14 Units 0-14 Units Subcutaneous 5 X Day insulin aspart U-100 (NOVOLOG FLEXPEN) injection PEN 15 Units 15 Units Subcutaneous TID w/ meals insulin aspart U-100 (NOVOLOG FLEXPEN) injection PEN 3 Units 3 Units Subcutaneous QHS insulin glargine (LANTUS SOLOSTAR, BASAGLAR) injection PEN 20 Units 20 Units Subcutaneous QHS insulin NPH (HUMULIN N KwikPen) injection PEN 12 Units 12 Units Subcutaneous QDAY(21) lactobacillus rhamnosus GG (CULTURELLE) 15 billion cell capsule 1 capsule 1 capsule Oral BID w/meals levothyroxine (SYNTHROID) tablet 200 mcg 200 mcg Oral QDAY before breakfast lidocaine (LIDODERM) 5 % topical patch 2 patch 2 patch Topical QDAY meropenem (MERREM) IVP 500 mg 500 mg Intravenous Q6H* nortriptyline (PAMELOR) capsule 50 mg 50 mg Oral QHS oxyCODONE (ROXICODONE, OXY-IR) tablet 15 mg 15 mg Oral Once per day on Wed oxyCODONE SR (OXYCONTIN) tablet 10 mg 10 mg Oral BID pantop[address]ole DR (PROTONIX) tablet 40 mg 40 mg Oral QDAY(21) rivaroxaban (XARELTO) tablet 20 mg 20 mg Oral QDAY w/breakfast simvastatin (ZOCOR) tablet 20 mg 20 mg Oral QHS sodium chloride PF 0.9% flush 20 mL 20 mL Intravenous FLUSH TID vancomycin (VANCOCIN) 1,250 mg in dextrose 5% (D5W) IVPB 1,250 mg Intravenous Q12H* vancomycin, pharmacy to manage 1 each Service Per Pharmacy vitamin A & D topical ointment Topical BID Continuous Infusions: PRN and Respiratory Meds:acetaminophen Q6H PRN, alum/mag hydroxide/simeth Q6H PRN, calcium carbonate Q4H PRN, milk of magnesia (CONC) Q4H PRN, ondansetron ( ZOFRAN) IV Q6H PRN, oxyCODONE Q4H PRN, pancrelipase 20,000 Units/ sodium bicarbonate 650 mg(#) PRN (Catalogue Librarian from Rx) Physical Exam VS: BP 110/50 (BP Source: Arm, Left) | Pulse 110 | Temp 37.2 C (99 F) | Ht 160 cm (63") | Wt 100.6 kg (221 lb 11.5 oz) Comment: removed extra pillows, linens, and wound vac. | LMP 01/14/2013 | SpO2 94% | BMI 39.28 kg/m Gen: awake, alert, NAD, corpak in place HEENT: left ear w/o erythema or drainage. CV: RRR, no murmur Pulm: CTAB, no w/r Abd: nondistended, nontender Extremities: mild edema rle, s/p hemipelvectomy on left with dressings and wound vac in place Psych: Pleasent mood Therapy Notes & Labs Reviewed. * Evelia Delacruz - 01/29/2018 2:13 AM CDT Tube feeding held this noc. Patient drunk the two pro source liquids per consolidation accountant recommendation. NPH Insulin and 3 units novolg also held. * Ruth Garcia - 01/28/2018 7:43 PM CDT Activity Therapy Patient participated in a pet therapy session with a volunteer, volunteers dog and this activity therapist. * Serenity Concepcion MD - 01/28/2018 5:21 PM CDT Formatting of this note may be different from the original. Endocrine Progress Note Today's Date: 01/28/2018 Admission Date: 01/14/2018 LOS: 14 days Impression: Principal Problem: Left hip amputation status Active Problems: Chondrosarcoma (HCC) Acute blood loss as cause of postoperative anemia Depression Anxiety DM (diabetes mellitus) (HCC) 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 Chronic pain Post-op pain Bacteremia Amputated left leg (HCC) Candiduria Recommendations: Continue NPH 12 units SQ qhs with nocturnal tube feeds + Novolog 3 units SQ qhs with nocturnal TFs Hold if TFs are interrupted Discontinue if TFs are stopped Lantus 20 units SQ qhs Continue Novolog 15 units SQ TID with meals Novolog MDCF Continue LT4 therapy Increase to 200mcg on 01.25.2018 due to continued elevation of TSH / low range normal FT4 Repeat TSH testing in 6 weeks On statin therapy HPI: Beata Kaiser is a 52 y.o. female. Beata is doing well this afternoon. Tolerating diet. No hypoglycemia. Good glycemic control overnight with enteral feeds. Per RD note, close to being able to stop enteral feeds. They remain on order list at this time. On enteral feeds -- Nutren 1.5 to 30ml per hour x 6 hours. 180mL total volume. Historical data -- S/p left hemipelvectomy DM2 with stress hyperglycemia HgbA1C 6.5%. CAMP TENDER meds: Metformin + Jardiance / PCP in [place], [place] Past Medical History: Diagnosis Date Anxiety Back pain Depression DM (diabetes mellitus) (HCC) 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 Review of systems: Febrile overnight. No oxygen requirements. No CP/sob/nausea/vomiting. Medications Scheduled Meds: aspirin chewable tablet 81 mg 81 mg Oral QDAY buPROPion (WELLBUTRIN) tablet 100 mg 100 mg Oral TID busPIRone (BUSPAR) tablet 30 mg 30 mg Oral BID collagenase (SANTYL) topical ointment Topical QDAY docusate (COLACE) capsule 100 mg 100 mg Oral BID ferrous sulfate (FEOSOL, FEROSUL) tablet 325 mg 325 mg Oral TID w/ meals gabapentin (NEURONTIN) capsule 800 mg 800 mg Oral QID insulin aspart U-100 (NOVOLOG FLEXPEN) injection PEN 0-14 Units 0-14 Units Subcutaneous 5 X Day insulin aspart U-100 (NOVOLOG FLEXPEN) injection PEN 15 Units 15 Units Subcutaneous TID w/ meals insulin aspart U-100 (NOVOLOG FLEXPEN) injection PEN 3 Units 3 Units Subcutaneous QHS insulin glargine (LANTUS SOLOSTAR, BASAGLAR) injection PEN 20 Units 20 Units Subcutaneous QHS insulin NPH (HUMULIN N KwikPen) injection PEN 12 Units 12 Units Subcutaneous QDAY(21) lactobacillus rhamnosus GG (CULTURELLE) 15 billion cell capsule 1 capsule 1 capsule Oral BID w/meals levothyroxine (SYNTHROID) tablet 200 mcg 200 mcg Oral QDAY before breakfast lidocaine (LIDODERM) 5 % topical patch 2 patch 2 patch Topical QDAY meropenem (MERREM) IVP 500 mg 500 mg Intravenous Q6H* nortriptyline (PAMELOR) capsule 50 mg 50 mg Oral QHS oxyCODONE (ROXICODONE, OXY-IR) tablet 15 mg 15 mg Oral Once per day on Wed oxyCODONE SR (OXYCONTIN) tablet 10 mg 10 [address] (PROTONIX) tablet 40 mg 40 mg Oral QDAY(21) rivaroxaban (XARELTO) tablet 20 mg 20 mg Oral QDAY w/breakfast simvastatin (ZOCOR) tablet 20 mg 20 mg Oral QHS SODIUM CHLORIDE 0.9 % IV SOLP (Cabinet Override) NOW sodium chloride PF 0.9% flush 20 mL 20 mL Intravenous FLUSH TID vancomycin (VANCOCIN) 1,250 mg in dextrose 5% (D5W) IVPB 1,250 mg Intravenous Q12H* vancomycin, pharmacy to manage 1 each Service Per Pharmacy vitamin A & D topical ointment Topical BID Continuous Infusions: PRN and Respiratory Meds:acetaminophen Q6H PRN, alum/mag hydroxide/simeth Q6H PRN, calcium carbonate Q4H PRN, milk of magnesia (CONC) Q4H PRN, ondansetron ( ZOFRAN) IV Q6H PRN, oxyCODONE Q4H PRN, pancrelipase 20,000 Units/ sodium bicarbonate 650 mg(#) PRN (Catalogue Librarian from Rx) Objective Vital Signs: Last Filed Vital Signs: 24 Hour Range BP: 98/72 (01/28 1549) Temp: 37.1 C (98.7 F) (01/28 1549) Pulse: 113 (01/28 1549) Respirations: 18 PER MINUTE (01/28 1549) SpO2: 95 % (05/11 1549) O2 Delivery: None (Room Air) (01/28 1549) BP: (87-121)/(47-87) Temp: [36.6 C (97.8 F)-37.4 C (99.4 F)] Pulse: [113-120] Respirations: [18 PER MINUTE] SpO2: [92 %-96 %] O2 Delivery: None (Room Air) Intensity Pain Scale 0-10 (Pain 1): 5 (01/28/18 0930) Vitals: 01/26/18 0400 01/27/18 0721 01/28/18 0444 Weight: 93.3 kg (205 lb 11 oz) 101.8 kg (224 lb 6.9 oz) 95.3 kg (210 lb 1.6 oz) Physical Exam Gen-A&O x 3 in nad HEENT-ngt in place Pulm-no distress Abd-ostomy in place MS-s/p left jamil-pelvectomy Lab Review Comprehensive Metabolic Profile Lab Results Component Value Date/Time NA 135 (L) 01/28/2018 06:00 AM K 3.8 01/28/2018 06:00 AM CL 99 01/28/2018 06:00 AM CO2 29 01/28/2018 06:00 AM GAP 7 01/28/2018 06:00 AM BUN 14 01/28/2018 06:00 AM CR 0.60 01/28/2018 06:00 AM GLU 153 (H) 01/28/2018 06:00 AM Lab Results Component Value Date/Time CA 8.6 01/28/2018 06:00 AM PO4 2.2 01/03/2018 05:10 AM ALBUMIN 2.3 (L) 01/28/2018 06:00 AM TOTPROT 5.5 (L) 01/28/2018 06:00 AM ALKPHOS 110 01/28/2018 06:00 AM AST 38 01/28/2018 06:00 AM ALT 47 01/28/2018 06:00 AM TOTBILI 0.2 (L) 01/28/2018 06:00 AM GFR >60 01/28/2018 06:00 AM GFRAA >60 01/28/2018 06:00 AM Lab Results Component Value Date TRIG 254 (H) 01/13/2018 TSH Date Value Ref Range Status 01/25/2018 10.130 (H) 0.35 - 5.00 MCU/ML Final No results found for: URMALBCRRAT Glucose testing Recent Labs 01/27/18 0654 01/27/18 1155 01/27/18 1659 01/27/18 2130 01/28/18 0308 01/28/18 0709 01/28/18 1214 01/28/18 1712 GLUPOC 154* 204* 253* 243* 153* 155* 156* 119* Hemoglobin A1C Date Value Ref Range Status 12/28/2017 6.5 (H) 4.0 - 6.0 % Final Comment: The ADA recommends that most patients with type 1 and type 2 diabetes maintain an A1c level <7%. Serenity Concepcion MD [phone] * Hedy Pearce, PT - 01/28/2018 3:56 PM CDT Formatting of this note may be different from the original. PHYSICAL THERAPY NOTE SUBJECTIVE: Beata Kaiser is a 52 yo F who presented to [facility] on 12/13/17 for scheduled left hemipelvectomy and hemisacrectomy for chondrosarcoma. She underwent open biopsy of left pelvis previously on 11/29. The pt was admitted post-operatively for IVC filter placement secondary to DVT. Pathology consistent with chondrosarcoma. Pt underwent scheduled hemipelvectomy on 12/14/17. After resection of the pelvis had been performed, there was noted to be a small cystotomy as well as urethral injury. These were repaired by urology, melchor still in place. Pt became septic with GBS, ID consulted, being treated with ertapenem. Diverting colostomy was placed on 12/30 due to stool saturating the wound. Wound vac currently in place with F changes. Hospitalization also complicated by ABLA and post-op pain. ROM: B UE WFL R LE WFL L hemipelvectomy STRENGTH: Generalized weakness. R LE 4/5. L hemipelvectomy. POSTURE/NEURO: Forward head, rounded shoulders, thoracic flexion, pelvic obliquity secondary to L hemipelvectomy WOUND CARE: Wounds (NOT for Pressure Injuries) 11/30/17 0853 Left Buttocks Surgical Incision (Active) 11/30/17 0853 Buttocks Wound Orientation: Left Wound Type: Surgical Incision Wound Type:: Wound Description (Comments): Carlos Manuel Rosales Drain, Sutures, xeroform, 4x4's, and tegaderm. Wound Base Assessment Gallardo;Eschar;Ceci intact 01/28/2018 11:05 AM Surrounding Skin Assessment Intact 01/28/2018 11:05 AM Wound Site Closure Wound Adhesive Bandage 01/28/2018 11:05 AM Wound Drainage Amount Moderate 01/28/2018 11:05 AM Wound Drainage Description Gallardo;Serous 01/28/2018 11:05 AM Wound Dressing Status Changed 01/28/2018 11:05 AM Wound Dressing and / or Treatment Abdominal Pad;Hypafix Tape 01/28/2018 11:05 AM Wounds (NOT for Pressure Injuries) 12/23/17 1345 Left Labia (Active) 12/23/17 1345 Labia Wound Orientation: Left Wound Type: Wound Type:: Wound Description (Comments): Wound Base Assessment Yellow;Slough 01/28/2018 11:05 AM Surrounding Skin Assessment Edema;[place];Induration 01/28/2018 11:05 AM Wound Site Closure None;Open to Air 01/28/2018 11:05 AM Wound Drainage Amount Small 01/28/2018 11:05 AM Wound Drainage Description Serous 01/28/2018 11:05 AM Wound Dressing Status Changed 01/28/2018 11:05 AM Wound Dressing and / or Treatment Foam ([place]) 01/28/2018 11:05 AM Wounds (NOT for Pressure Injuries) 12/30/17 1002 Left;Anterior Surgical Incision stump (Active) 12/30/17 1002 Wound Orientation: Left;Anterior Wound Type: Surgical Incision Wound Type:: stump Wound Description (Comments): Suture, ceci, telfa and iodine, 4x4, and tegaderm Wound Base Assessment Gallardo;Eschar;[place] 01/28/2018 11:05 AM Surrounding Skin Assessment Intact;Pale;Purple 01/28/2018 11:05 AM Wound Site Closure Wound Adhesive Bandage 01/28/2018 11:05 AM Wound Drainage Amount Small 01/28/2018 11:05 AM Wound Drainage Description Gallardo 01/28/2018 11:05 AM Wound Dressing Status Changed 01/28/2018 11:05 AM Wound Dressing and / or Treatment Hydrofera Blue Ready 01/28/2018 11:05 AM Wounds (NOT for Pressure Injuries) 01/10/18 1100 Hip Surgical Incision (Active) 01/10/18 1100 Hip Wound Orientation: Wound Type: Surgical Incision Wound Type:: Wound Description (Comments): XEROFORM, 4X4S, HYPAFIX, WOUND VAC Wound Base Assessment Moist;Pale;[place];Yellow;Slough 01/28/2018 11:05 AM Surrounding Skin Assessment Intact 01/28/2018 11:05 AM Wound Site Closure Wound Adhesive Bandage 01/28/2018 11:05 AM Wound Drainage Amount Large 01/28/2018 11:05 AM Wound Drainage Description Serous 01/28/2018 11:05 AM Wound Dressing Status Changed 01/28/2018 11:05 AM Wound Dressing and / or Treatment VAC sponge - black;VAC tx: Continuous;VAC @ - 125mm/Hg 01/28/2018 11:05 AM BED MOBILITY/TRANSFERS: Rolls towards R with standby assist using bed rail. Rolls towards L with moderate assist secondary to pain using bed rail, assist at trunk. Supine to sit with bed flat, using rail, varies from standby to moderate assist for trunk (extra time required). Bed must be maximally inflated prior to initiation of transfer. Sit to supine with bed flat, using rail, requires minimal assist for R LE. Slideboard transfers with minimal to moderate assist of 1 person. Requires assist for placement/removal of board and for transfer of weight across board from one surface to another. Patient able to direct transfer but needs assist to block R foot from sliding. PT assists with wound vac and melchor catheter. GAIT: Non-ambulatory. WHEELCHAIR MOBILITY: Supervision assist for wheelchair mobility on level surfaces, but with extra time and 2nd person to assist with wound vac management. ACTIVITY/EXERCISE: Family training Mobility training See flowsheet for details EDUCATION: Patient/family educated on home safety and modifications within home ASSESSMENT/PROGRESS: The patient has undergone a recent hemipelvectomy and has had subsequent complications. She currently uses an NG tube for nighttime feedings to encourage nutrition for healing and requires the head of the bed to be elevated greater than 30 degrees due to aspiration risk. She has substantial wounds and requires the air mattress to decrease pressure and optimize healing. PLAN: Continue mobility progression and family training in preparation for discharge. RECOMMENDATIONS: Hospital Bed with Air Mattress Therapist: Hedy Pearce PT Date: 01/28/2018 Associated attestation - Ruth Allen MD - 01/31/2018 12:50 PM CDT Patient requires hospital bed at discharge. Patient requires positioning of the body in ways not feasible with ordinary beds to in order to alleviate pain. Patient requires frequent repositioning of the body and/or has an immediate need for change in body position. Ruth Allen MD 01/31/2018 12:49 PM * Jennifer Diaz RN - 01/28/2018 11:05 AM CDT Formatting of this note may be different from the original. Wound Ostomy Nursing Consult Service NAME:Beata Kaiser :1965 AGE: 52 y.o. ADMISSION DATE: 01/14/2018 DAYS ADMITTED: LOS: 14 days Reason for Visit: wound VAC Assessment/Plan: Principal Problem: Left hip amputation status Active Problems: Chondrosarcoma (HCC) Acute blood loss as cause of postoperative anemia Depression Anxiety DM (diabetes mellitus) (HCC) 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 Chronic pain Post-op pain Bacteremia Amputated left leg (HCC) Candiduria Wounds (NOT for Pressure Injuries) 11/30/17 0853 Left Buttocks Surgical Incision (Active) 11/30/17 0853 Buttocks Wound Orientation: Left Wound Type: Surgical Incision Wound Type:: Wound Description (Comments): Carlos Manuel Rosales Drain, Sutures, xeroform, 4x4's, and tegaderm. Wound Base Assessment Gallardo;Eschar;[place] intact 01/28/2018 11:05 AM Surrounding Skin Assessment Intact 01/28/2018 11:05 AM Wound Site Closure Wound Adhesive Bandage 01/28/2018 11:05 AM Wound Drainage Amount Moderate 01/28/2018 11:05 AM Wound Drainage Description Gallardo;Serous 01/28/2018 11:05 AM Wound Dressing Status Changed 01/28/2018 11:05 AM Wound Dressing and / or Treatment Abdominal Pad;Hypafix Tape 01/28/2018 11:05 AM Wounds (NOT for Pressure Injuries) 12/23/17 1345 Left Labia (Active) 12/23/17 1345 Labia Wound Orientation: Left Wound Type: Wound Type:: Wound Description (Comments): Wound Base Assessment Yellow;Slough 01/28/2018 11:05 AM Surrounding Skin Assessment Edema;[place];Induration 01/28/2018 11:05 AM Wound Site Closure None;Open to Air 01/28/2018 11:05 AM Wound Drainage Amount Small 01/28/2018 11:05 AM Wound Drainage Description Serous 01/28/2018 11:05 AM Wound Dressing Status Changed 01/28/2018 11:05 AM Wound Dressing and / or Treatment Foam ([place]) 01/28/2018 11:05 AM Wounds (NOT for Pressure Injuries) 12/30/17 1002 Left;Anterior Surgical Incision stump (Active) 12/30/17 1002 Wound Orientation: Left;Anterior Wound Type: Surgical Incision Wound Type:: stump Wound Description (Comments): Suture, ceci, telfa and iodine, 4x4, and tegaderm Wound Base Assessment Gallardo;Eschar;Ceci 01/28/2018 11:05 AM Surrounding Skin Assessment Intact;Pale;Purple 01/28/2018 11:05 AM Wound Site Closure Wound Adhesive Bandage 01/28/2018 11:05 AM Wound Drainage Amount Small 01/28/2018 11:05 AM Wound Drainage Description Gallardo 01/28/2018 11:05 AM Wound Dressing Status Changed 01/28/2018 11:05 AM Wound Dressing and / or Treatment Hydrofera Blue Ready 01/28/2018 11:05 AM Wounds (NOT for Pressure Injuries) 01/10/18 1100 Hip Surgical Incision (Active) 01/10/18 1100 Hip Wound Orientation: Wound Type: Surgical Incision Wound Type:: Wound Description (Comments): XEROFORM, 4X4S, HYPAFIX, WOUND VAC Wound Base Assessment Moist;Pale;[place];Yellow;Slough 01/28/2018 11:05 AM Surrounding Skin Assessment Intact 01/28/2018 11:05 AM Wound Site Closure Wound Adhesive Bandage 01/28/2018 11:05 AM Wound Drainage Amount Large 01/28/2018 11:05 AM Wound Drainage Description Serous 01/28/2018 11:05 AM Wound Dressing Status Changed 01/28/2018 11:05 AM Wound Dressing and / or Treatment VAC sponge - black;VAC tx: Continuous;VAC @ - 125mm/Hg 01/28/2018 11:05 AM Procedure: Negative Wound Therapy Dressing Change Anesthesia Type: with General back up Provider(s) and Role: RN Negative Wound Pressure Device Type: KCI VAC Contact layer: None Wound dimension (length x width x depth, tunneling, undermining): See note 7 Number of sponges in the wound prior to dressing change: 5 Number of sponges removed from the wound: 5 Type of sponge: Black foam Number of sponges placed in the wound: 2 - two medium wound VAC foams, each piece of foam spiral-cut into one long strip and used to pack wound [employer] not available on unit supply cart. Hydrofera Blue Ready foam used as alternative and placed over areas of moist eschar, including left groin wounds, for moisture management. Will continue to follow. Jennifer Diaz RN, BSN, ON Wound/Ostomy Nursing Consult Service Office: [phone] Pager: [phone] Wound/Ostomy Team Pager (After Hours/Weekends): [phone] * Leia Zimmerman - 01/28/2018 10:34 AM CDT CLINICAL NUTRITION Clinical Nutrition Follow-Up Summary Nutrition Assessment of Patient: Malnutrition Assessment: Adequately nourished prior to admission Current Oral Intake: Adequate Estimated Calorie Needs: 1660 (30kcal/kg of dw 55kg) Estimated Protein Needs: 100-120 (1.5-2.2g/kg of dw 55kg) Oral Diet Order: Diabetic [id number] Kcal/day (60 g Carb/meal, 30 g Carb/HS snack ) Oral Supplement: Boost Glucose Control, Prosource Combined Routes of Nutrition Avg: Intake (calories) Daily Average : 1789 kilocalories (>100% of goal) Intake (protein) Daily Average : 90 grams (90% of low end goal) Current EN Order: Nutren 1.5 @ 30ml/hr x 6 hrs + 2 pkts Prosource daily. Provides 390kcal, 42g protein, 137ml free water. 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 PMH of DM (A1c 6.5) and depression. Pt with stool soilage issues prohibiting wound healing had colostomy 12/30. TPN was added to enhance nutrition followed by supplemental EN. I&D with wound vac 01/10. On 01/26, 7-day calorie count average met ~94% of kcal, 71% protein needs . EN was continued due to concern for wound healing; however, rate was decreased with continued Prosource to enhance meeting protein needs without overfeeding on calories. Per discussion with RN on 01/26, goal was to see if pt could consume Prosource orally. Per RN today, she tolerated one dose for sure, with Boost drink. Pt continues to have 2 Boost GC drinks daily and oral intake remains consistent. PO intake average x last 2 days or ~1500kcal (90% of goal) and 76g protein (76% of goal) with Boost drinks accounted for. Discussed with pt and RN importance of protein needs and ensuring all protein supplements are consumed. Plans to include Prosource in drink/foods as desired with goal of 2/day orally. IF unable , RN to infuse Prosource through [employer]. Discussed protein amounts in supplements and plan to stick to 2 Boost drinks to conserve calories. Chart reviewed. No other pertinent concerns at this time. Recommendation: Pt is meeting 76% of protein needs orally with Boost drinks included. Recommend holding TF + Prosource via tube if pt able to consume 2 Prosource daily by mouth with continued Boost GC x 2 and menu food. With added Prosource, pt will meet 100% of protein needs based on consistent PO intake average of 76g protein avg/day. Once proven to be consistent, would dc EN. Pt able to meet calorie goals (90 % avg). Intervention / Plan: Encouraged protein supplements to RN and pt Monitor EN/PO intake, wt, labs, skin, gi, meds, fluids Nutrition Diagnosis: Nutrition Diagnosis: Increased nutrient needs, specify: Etiology: protein: demand for wound healing Signs & Symptoms: s/p hemipelvectomy Goals: Combined routes of nutrition meeting 100% of nutritional needs Time Frame: Within 5 Days Status: Partially met;Ongoing PO intake to meet >85% nutritional needs Time Frame: Prior to Discharge Status: Met;Ongoing Leia Zimmerman RD, LD *[id number] * Indy Isabel MD - 01/28/2018 10:23 AM CDT Formatting of this note may be different from the original. Infectious Diseases Progress Note Today's Date: 01/28/2018 Admission Date: 01/14/2018 Assessment: Recurrent fever 01/26 01/26 BC- neg to date 01/26 UA - 0-2 WBC Anemia Low grade fever 01/21-improved/resolved- source uncertain - Eschar of wound w/fat necrosis, ongoing sweats, no other new s/s -01/21 UA- 2-10 WBC, no culture -01/21 BC neg -01/21 KUB- -01/24- plastic eval of wounds- no surgical intervention given lyphedematous tissue, wound team, ongoing areas of dehiscence/eschar Transaminitis-improved 01/24 - LFT elevated 104/97 01/25 LFT improved 41/68 # GBS bacteremia w sepsis- source suspected left hip wound, less likely pna - Fever and leukocytosis began 12/20/17 - 4/3 L lower lobe infiltrate - read as atelectasis - 12/20 C. diff negative - 12/23 Bcx 1/ set group B streptococcus; source seems most likely intra-pelvic; 12/24 bcx negative - CT pelvis 12/25: "Ill-defined fluid and air along the anterior margin of the surgical site away from the drain tip. However, no discrete drainable fluid collection is noted. - OR 01/10 for wound eval - no sign of infection - posterior wound starting to granulate, WV started # Candiduria-resolved - 12/21/17 UA: wbc 2-10, negative nitrite, 1+ luukocytes, Culture > 100,000 Liliana sp - Sensitivities not done, unsure if fluconazole susceptible; repeat urine culture negative 12/28 but improved with micafungin so is suspicion for fluconazole resistance - Treating given indwelling melchor and inability to remove melchor d/t recent bladder repair - ? Candidal intertrigo - groin/mons - Cath change in OR 01/10 - no bladder leak at that time - Micafungin course completed 01/16 # s/p hemipelvectomy for Chondrosarcoma - 11/25/17 MRI: a large lesion throughout the entire left hemipelvis that appeared to be centered within the ilium - 11/30/17 open biopsy: Chondrosarcoma - 11/26/17 CT: few small pulmonary nodules. will resect the masses in the chest later - admission 12/13/17- - 12/14/17: left hemipelvectomy, jamil sacrectomy. Complicated with bladder and urethral injury. Added Cystoscopy with left ureteral stent insertion, Bladder neck repair, Urethroplasty and repair of urethral injury, Vaginal closure. - Stool saturating wound. Diverting colostomy done 12/30. - 01/06 CT: left hemipelvectomy, edema w/in the operative bed- not changed except sl more gas, more focal gas/fluid alonger anterior/inferior and superior surgical margins. #night sweats - per pt worse past week - TSH high, T4 ok, on replacement, no hypotension /lyte disturbance suggestive of adrenal disease, no menses since probably 2012 per pt - stopped HRT just before surg*; getting intermittent steroid, no s/s alternate new infection # DVT - 11/30/17 IVC filter for DVT within the external iliac vein # Obese # HTN # DM # 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 # Depression # Generalized pain # abx allergy - allergic history to Cephalexin 'years ago' with skin rash and hot flash - tolerated Penicillin when she had dental caries Recommendations: 1. Continue Vanco and Meropenem 2. Vanco trough 10-15 3. Repeat CBC, if continued drop in hgb would further eval blood loss- hemoccult stools, consider CT, 4. Increase hydration 5. Monitor renal function daily while on vanco 6. FU cultures 7. If recurrent fever, repeat BC and urine culture, obtain lactic acid, add Micafungin, obtain CT abd/pelvis. Consider RLE doppler to exclude 8. Call ID call center professional over the weekend if acute needs arise 9. FU w wound re potential hyperbaric tx Complexity of medical decision making is high b/c of the multi-system nature of the infectious disease process and concerns about the complexity of the patient illness including the sensitivity of the organisms being treated, the potential for drug toxicity and interactions, concerns about immunologic function, and interplay of other issues. Discussed w Rehab Interval History Her temp have been normal overnight. She is tearful today. Denies cough or sob, no abd pain. Stool output from ostomy stable. She has pain in stump- baseline but worse when moves around She is working w PT She was seen during vac change- discussed w wound nurses. Ongoing eschar, open wounds. The mons remains sl red on right side- seems more dependant edema but could be cellulitic. Overall this area looks much better compared to few weeks ago. She has eschar on left labial area. There is mottling along the eschar area in places- may be some progressing necrosis. ROS otherwise neg Labs reviewed- WBC 12K, hgb 6.5, Cr stable, LFT improved Antimicrobial Start date End date Erythromycin 12/13 Neomycin 12/13 12/13 Polymyxin B 12/14 12/14 Ertapenem 01/10 5 Gentamycin 12/14 12/15 Clindamycin 12/14 12/22 Pip/tazo 12/22 01/10 Fluconazole 12/22 12/30 Vancomycin 12/23 12/27 Micafungin 12/30 01/16 Vanco 01/26 active Meropenem 01/26 Estimated Creatinine Clearance: 103.3 mL/min (based on SCr of 0.6 mg/dL). Medications Scheduled Meds: aspirin chewable tablet 81 mg 81 mg Oral QDAY buPROPion (WELLBUTRIN) tablet 100 mg 100 mg Oral TID busPIRone (BUSPAR) tablet 30 mg 30 mg Oral BID collagenase (SANTYL) topical ointment Topical QDAY docusate (COLACE) capsule 100 mg 100 mg Oral BID ferrous sulfate (FEOSOL, FEROSUL) tablet 325 mg 325 mg Oral TID w/ meals gabapentin (NEURONTIN) capsule 800 mg 800 mg Oral QID insulin aspart U-100 (NOVOLOG FLEXPEN) injection PEN 0-14 Units 0-14 Units Subcutaneous 5 X Day insulin aspart U-100 (NOVOLOG FLEXPEN) injection PEN 15 Units 15 Units Subcutaneous TID w/ meals insulin aspart U-100 (NOVOLOG FLEXPEN) injection PEN 3 Units 3 Units Subcutaneous QHS insulin glargine (LANTUS SOLOSTAR, BASAGLAR) injection PEN 20 Units 20 Units Subcutaneous QHS insulin NPH (HUMULIN N KwikPen) injection PEN 12 Units 12 Units Subcutaneous QDAY() lactobacillus rhamnosus GG (CULTURELLE) 15 billion cell capsule 1 capsule 1 capsule Oral BID w/meals levothyroxine (SYNTHROID) tablet 200 mcg 200 mcg Oral QDAY before breakfast lidocaine (LIDODERM) 5 % topical patch 2 patch 2 patch Topical QDAY meropenem (MERREM) IVP 500 mg 500 mg Intravenous Q6H* nortriptyline (PAMELOR) capsule 50 mg 50 mg Oral QHS oxyCODONE (ROXICODONE, OXY-IR) tablet 15 mg 15 mg Oral Once per day on Wed oxyCODONE SR (OXYCONTIN) tablet 10 mg 10 mg Oral BID pantoprazole DR (PROTONIX) tablet 40 mg 40 mg Oral QDAY(21) rivaroxaban (XARELTO) tablet 20 mg 20 mg Oral QDAY w/breakfast simvastatin (ZOCOR) tablet 20 mg 20 mg Oral QHS sodium chloride PF 0.9% flush 20 mL 20 mL Intravenous FLUSH TID vancomycin (VANCOCIN) 1,250 mg in dextrose 5% (D5W) IVPB 1,250 mg Intravenous Q12H* vancomycin, pharmacy to manage 1 each Service Per Pharmacy vitamin A & D topical ointment Topical BID Continuous Infusions: PRN and Respiratory Meds:acetaminophen Q6H PRN, alum/mag hydroxide/simeth Q6H PRN, calcium carbonate Q4H PRN, milk of magnesia (CONC) Q4H PRN, ondansetron ( ZOFRAN) IV Q6H PRN, oxyCODONE Q4H PRN, pancrelipase 20,000 Units/ sodium bicarbonate 650 mg(#) PRN (Catalogue Librarian from Rx) Physical Examination Vital Signs: Last Vital Signs: 24 Hour Range BP: 107/55 (01/29 800) Temp: 36.6 C (97.9 F) (01/29 800) Pulse: 120 (01/29 800) Respirations: 18 PER MINUTE (01/29 800) SpO2: 96 % (01/29 800) O2 Delivery: None (Room Air) (01/29 800) BP: (87-125)/(47-87) Temp: [36.6 C (97.9 F)-37.4 C (99.4 F)] Pulse: [113-121] Respirations: [16 PER MINUTE-18 PER MINUTE] SpO2: [92 %-98 %] O2 Delivery: None (Room Air) General appearance: alert, oriented, Lungs: no wheezing Heart: Regular rhythm, tachy, Abdomen: soft, obese, ostomy Ext: s/p left hemipelvectomy; Skin: no new rashes noted Wound: Ongoing eschar, open wounds. The mons remains sl red on right side- seems more dependant edema but could be cellulitic. Overall this area looks much better compared to few weeks ago. She has eschar on left labial area. There is mottling along the eschar area in places- may be some progressing necrosis Lines: PICC RUE- No erythema, swelling or tenderness Lab Review Hematology Recent Labs 01/25/18 1057 01/26/18 0500 01/28/18 0600 WBC 10.7 11.6* 12.3* HGB 9.6* 7.6* 6.5* HCT 28.5* 23.5* 19.0* PLTCT 477* 532* 578* Chemistry Recent Labs 01/25/18 1057 01/26/18 0500 01/28/18 0600 NA -- 134* 135* K -- 4.3 3.8 CL -- 99 99 CO2 -- 29 29 BUN -- 15 14 CR -- 0.59 0.60 GFR -- >60 >60 GLU -- 222* 153* CA -- 8.4* 8.6 ALBUMIN 2.4* -- 2.3* ALKPHOS 134* -- 110 AST 41* -- 38 ALT 68* -- 47 TOTBILI 0.2* -- 0.2* Microbiology, Radiology and other Diagnostics Review Microbiology data reviewed. Pertinent radiology reviewed Indy Isabel MD Pager [phone] * Ruth Allen MD - 01/28/2018 9:50 AM CDT Formatting of this note may be different from the original. ATTESTATION I personally performed the banuelos portions of the E/M visit, discussed case with resident and concur with resident documentation of history, physical exam, assessment, and treatment plan unless otherwise noted. Labs and VS reviewed and Hgb 6.5 today Will give transfusion and monitor Hgb. Appreciate ID f/u, monitor for fevers and can broaden abx as per their note. If fever again, get CT AP and RLE US. Per Case Packer And Sealer, can hold TF if continues to eat well, Boost and Prosource. Will hold HS insulin if holds TF. Will f/u with wound care on possibility of HBOT. Sleeping better, cont nortriptyline. Patient remains medically stable to participate in IRF program. Per OT, CGA slideboard transfers today. Staff name: Ruth Allen MD Date: 01/28/2018 Physical Medicine & Rehabilitation Progress Note Today's Date: 01/28/2018 Admission Date: 01/14/2018 LOS: 14 days Insurance: [facility] Principal Problem: Left hip amputation status Active Problems: Chondrosarcoma (HCC) Acute blood loss as cause of postoperative anemia Depression Anxiety DM (diabetes mellitus) (HCC) 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 Chronic pain Post-op pain Bacteremia Amputated left leg (HCC) Candiduria Assessment/Plan: Beata Lema a 52 y.o.female[facility] the following issues : 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 Goals: household mobility at wheelchair level min A Tentative discharge date: 02/09/18 Recommended therapy after discharge: home health OT/PT Recommended equipment: Hospital bed, wheelchair/cushion ([employer] eval 01/27/18) , slideboard, ramp Daily Functional Update: Transfers Device Sit to Stand Transfer: Assistive Device: Sliding Board (01/27/2018 9:00 AM) No Data Recorded Gait Device Assist Required Distance Gait: Assistive Device: IV Pole (12/01/2017 11:00 AM) No Data Recorded Gait Distance: 400 feet (12/01/2017 11:00 AM) Toileting Assist Required Equipment Toilet Transfer Toileting Assist: Total Assist (01/06/2018 1:00 PM) No Data Recorded No Data Recorded Dressing Lower Body LE Dressing Assist: Total Assist (01/27/2018 8:00 AM) Chrondrosarcoma s/p hemipelvectomy and hemisacrectomy Lymphedema wound and residual limb >wound vac in place. Changes M/W/F by wound vac team. PO 15mg oxycodone MWF for WV changes + lidocaine into sponge during acute hospitalization - wean off IV pain meds as able >Change dressings prn with dry sterile gauze and hypafix tape >vitamin A &D for labia wound, collagenase for left lower abdomen wound healing >Per plastic surgery note 01/24 not recommending further surgical intervention at this time >Per conversation with wound care planning on ev per to see if pt is appropriate for HBOT - d/w Dr. Schneider potential for compression for lymphedema Post-op pain in setting of chronic pain Phantom limb pain, neuropathic pain >Tylenol, oxycontin 10mg BID and oxycodone 20mg q3h prn. Lidoderm patch prn. > Continue nortriptyline to 50mg QHS (increased 01/27) > Continue gabapentin 800mg Q6h s/p diverting colostomy - Stool saturating wound. Diverting colostomy done 12/30 >wound/ostomy consulted, working on education with nursing Bladder injury, recent repair - bladder and urethral injuries during hemipelvectomy on 12/14/17 - underwent cystoscopy with left ureteral stent insertion, Bladder neck repair, Urethroplasty and repair of urethral injury, Vaginal closure >continue melchor catheter > Urology f/u after rehab discharge Chest lesions (metastases?) - 11/26/17 CT: few small pulmonary nodules. >plan is to resect the masses in the chest later >CT chest scheduled for 02/08 with f/u with CTS surgery GBS bacteremia w/ sepsis due to left hip wound - Fever and leukocytosis began 12/20/17, Bcx 09/21 positive for GBS on 12/23 -Fever 01/21 - blood cx and urine cx NGTD >Completed course of abx 01/23 ertapenem > Multiple fevers 01/26 in pm, started Vanc/Meropenem and obtained blood cx x2 and UA/reflex cx DVT - 11/30/17 IVC filter for DVT within the external iliac vein >cont Xarelto ABLA - Transfusion 01/15 1U PRBC - Hg 6.5 01/28 >Transfuse 1u PRBC T2DM - A1c 6.5%, controlled - CAMP TENDER regimen: Metformin thousand milligrams twice a day, [id number] mg daily >Continue with Lantus 20 units QHS, novolog 12u postmeal, MDCF 5x per day >Continue NPH 30 units with nocturnal tube feeds + Novolog 8 units SQ qhs with nocturnal TFs - please hold NPH if tube feed are held and give at the start of tube feed 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 - CAMP TENDER 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 daily - TSH 2.1 this admission >levothyroxine increased 200 mcg on 01/26 >She will need repeat thyroid function tests in 6-8 weeks Major depressive disorder, recurrent, moderate CLAUDIA Adjustment disorder with mixed anxiety and depressed mood > continue CAMP TENDER Wellbutrin and buspar, started on nortriptyline this admission Nutrition - 01/24 albumin 2.4, Prealbumin 11.0, recheck 01/31 -Pt is currently meeting caloric but not protein needs >Current diet: diabeticand nocturnal tube feeds - Nutren 1.5 to 30ml/hr x 6 hrs + 2 pkt Prosource daily > Case Packer And Sealer consult and d/c tube feeds once eating to meet needs > weekly prealbumin and albumin > Will hold TF is pt able to consume 2 Prosource daily by mouth with continued Boost GC x 2 and menu food HLD: holding CAMP TENDER statin Insomnia: nortriptyline 50mg qhs DVT Prophylaxis:Xarelto, will discharge on it Subjective No acute events overnight. Pt sitting at EOB working with OT when seen this am. Pt stated she slept better last night with increased QHS dose of nortriptyline. Pain tolerable this am. Pt's Hg 6.5 today, will transfuse 1u PRBC. Objective Vital Signs: Last Filed Vital Signs: 24 Hour Range BP: 107/55 (01/29 800) Temp: 36.6 C (97.9 F) (01/29 800) Pulse: 120 (01/29 800) Respirations: 18 PER MINUTE (01/29 800) SpO2: 96 % (01/29 800) O2 Delivery: None (Room Air) (01/29 800) BP: (87-125)/(47-87) Temp: [36.6 C (97.9 F)-37.4 C (99.4 F)] Pulse: [113-121] Respirations: [16 PER MINUTE-18 PER MINUTE] SpO2: [92 %-98 %] O2 Delivery: None (Room Air) Intensity Pain Scale 0-10 (Pain 1): Asleep (01/28/18 0006) Vitals: 01/26/18 0400 01/27/18 0721 01/28/18 0444 Weight: 93.3 kg (205 lb 11 oz) 101.8 kg (224 lb 6.9 oz) 95.3 kg (210 lb 1.6 oz) Intake/Output Summary: (Last 24 hours) Intake/Output Summary (Last 24 hours) at 01/28/18 0951 Last data filed at 01/28/18 0800 Gross per 24 hour Intake 1050 ml Output 1850 ml Net -800 ml Stool Occurrence: 1 Oral Diet Order: Diabetic [id number] Kcal/day (60 g Carb/meal, 30 g Carb/HS snack ) Last BM Date: 01/27/18 Lab: Results for orders placed or performed during the hospital encounter of (from the past 24 hour(s)) POC GLUCOSE Collection Time: 01/27/18 11:55 AM # # Low-High Glucose, POC 204 (H) 70 - 100 MG/DL POC GLUCOSE Collection Time: 01/27/18 4:59 PM # # Low-High Glucose, POC 253 (H) 70 - 100 MG/DL POC GLUCOSE Collection Time: 01/27/18 9:30 PM # # Low-High Glucose, POC 243 (H) 70 - 100 MG/DL POC GLUCOSE Collection Time: 01/28/18 3:08 AM # # Low-High Glucose, POC 153 (H) 70 - 100 MG/DL COMPREHENSIVE METABOLIC PANEL Collection Time: 01/28/18 6:00 AM # # Low-High Sodium 135 (L) 137 - 147 MMOL/L [...] - 12 eGFR Non >60 >60 mL/min eGFR >60 >60 mL/min CBC AND DIFF Collection Time: 01/28/18 6:00 AM # # Low-High White Blood Cells 12.3 (H) 4.5 - 11.0 K/UL RBC 2.39 (L) 4.0 - 5.0 M/UL Hemoglobin 6.5 (L) 12.0 - 15.0 GM/DL Hematocrit 19.0 (L) 36 - 45 % MCV 79.5 (L) 80 - 100 FL MCH 27.3 26 - 34 PG MCHC 34.3 32.0 - 36.0 G/DL RDW 18.9 (H) 11 - 15 % Platelet Count 578 (H) 150 - 400 K/UL MPV 6.7 (L) 7 - 11 FL Neutrophils 69 41 - 77 % Lymphocytes 10 (L) 24 - 44 % Monocytes 11 4 - 12 % Eosinophils 10 (H) 0 - 5 % Basophils 0 0 - 2 % Absolute Neutrophil Count 8.40 (H) 1.8 - 7.0 K/UL Absolute Lymph Count 1.30 1.0 - 4.8 K/UL Absolute Monocyte Count 1.30 (H) 0 - 0.80 K/UL Absolute Eosinophil Count 1.20 (H) 0 - 0.45 K/UL Absolute Basophil Count 0.10 0 - 0.20 K/UL POC GLUCOSE Collection Time: 01/28/18 7:09 AM # # Low-High Glucose, POC 155 (H) 70 - 100 MG/DL Scheduled Meds: aspirin chewable tablet 81 mg 81 mg Oral QDAY buPROPion (WELLBUTRIN) tablet 100 mg 100 mg Oral TID busPIRone (BUSPAR) tablet 30 mg 30 mg Oral BID collagenase (SANTYL) topical ointment Topical QDAY docusate (COLACE) capsule 100 mg 100 mg Oral BID ferrous sulfate (FEOSOL, FEROSUL) tablet 325 mg 325 mg Oral TID w/ meals gabapentin (NEURONTIN) capsule 800 mg 800 mg Oral QID insulin aspart U-100 (NOVOLOG FLEXPEN) injection PEN 0-14 Units 0-14 Units Subcutaneous 5 X Day insulin aspart U-100 (NOVOLOG FLEXPEN) injection PEN 15 Units 15 Units Subcutaneous TID w/ meals insulin aspart U-100 (NOVOLOG FLEXPEN) injection PEN 3 Units 3 Units Subcutaneous QHS insulin glargine (LANTUS SOLOSTAR, BASAGLAR) injection PEN 20 Units 20 Units Subcutaneous QHS insulin NPH (HUMULIN N KwikPen) injection PEN 12 Units 12 Units Subcutaneous QDAY(21) lactobacillus rhamnosus GG (CULTURELLE) 15 billion cell capsule 1 capsule 1 capsule Oral BID w/meals levothyroxine (SYNTHROID) tablet 200 mcg 200 mcg Oral QDAY before breakfast lidocaine (LIDODERM) 5 % topical patch 2 patch 2 patch Topical QDAY meropenem (MERREM) IVP 500 mg 500 mg Intravenous Q6H* nortriptyline (PAMELOR) capsule 50 mg 50 mg Oral QHS oxyCODONE (ROXICODONE, OXY-IR) tablet 15 mg 15 mg Oral Once per day on Wed oxyCODONE SR (OXYCONTIN) tablet 10 mg 10 mg Oral BID pantoprazole DR (PROTONIX) tablet 40 mg 40 mg Oral QDAY(21) rivaroxaban (XARELTO) tablet 20 mg 20 mg Oral QDAY w/breakfast simvastatin (ZOCOR) tablet 20 mg 20 mg Oral QHS sodium chloride PF 0.9% flush 20 mL 20 mL Intravenous FLUSH TID vancomycin (VANCOCIN) 1,250 mg in dextrose 5% (D5W) IVPB 1,250 mg Intravenous Q12H* vancomycin, pharmacy to manage 1 each Service Per Pharmacy vitamin A & D topical ointment Topical BID Continuous Infusions: PRN and Respiratory Meds:acetaminophen Q6H PRN, alum/mag hydroxide/simeth Q6H PRN, calcium carbonate Q4H PRN, milk of magnesia (CONC) Q4H PRN, ondansetron ( ZOFRAN) IV Q6H PRN, oxyCODONE Q4H PRN, pancrelipase 20,000 Units/ sodium bicarbonate 650 mg(#) PRN (Catalogue Librarian from Rx) Physical Exam VS: BP 107/55 (BP Source: Arm, Left) | Pulse 120 | Temp 36.6 C (97.9 F) | Ht 160 cm (63") | Wt 95.3 kg (210 lb 1.6 oz) Comment: removed wound vac | LMP 01/14/2013 | SpO2 96% | BMI 37.22 kg/m Gen: awake, alert, NAD, corpak in place HEENT: left ear w/o erythema or drainage. CV: RRR, no murmur Pulm: CTAB, no w/r Abd: nondistended, nontender Extremities: mild edema rle, s/p hemipelvectomy on left with dressings and wound vac in place Skin: warm, dry Neuro: alert, oriented, speech fluent and clear, eomi, at least antigravity strength in remaining 3 extremities Therapy Notes & Labs Reviewed. Ravi Pride DO Pager [phone] * Serenity Concepcion MD - 01/27/2018 8:53 PM CDT Formatting of this note may be different from the original. Endocrine Progress Note Today's Date: 01/27/2018 Admission Date: 01/14/2018 LOS: 13 days Impression: Principal Problem: Left hip amputation status Active Problems: Chondrosarcoma (HCC) Acute blood loss as cause of postoperative anemia Depression Anxiety DM (diabetes mellitus) (HCC) 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 Chronic pain Post-op pain Bacteremia Amputated left leg (HCC) Candiduria Recommendations: Continue NPH 12 units SQ qhs with nocturnal tube feeds + Novolog 3 units SQ qhs with nocturnal TFs Hold if TFs are interrupted Discontinue if TFs are stopped Lantus 20 units SQ qhs Increase Novolog to 15 units SQ TID with meals Novolog MDCF Continue LT4 therapy Increase to 200mcg on 01.25.2018 due to continued elevation of TSH / low range normal FT4 Repeat TSH testing in 6 weeks On statin therapy HPI: Beata Kaiser is a 52 y.o. female. Beata is doing well this evening at time of my visit. Tolerating diet. No hypoglycemia. Good glycemic control overnight with change in enteral feeds + change in insulin. On enteral feeds -- Nutren 1.5 to 30ml per hour x 6 hours. 180mL total volume. Historical data -- S/p left hemipelvectomy DM2 with stress hyperglycemia HgbA1C 6.5%. CAMP TENDER meds: Metformin + Jardiance / PCP in [place], [place] Past Medical History: Diagnosis Date Anxiety Back pain Depression DM (diabetes mellitus) (HCC) 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 Review of systems: Febrile overnight. No oxygen requirements. No CP/sob/nausea/vomiting. Medications Scheduled Meds: aspirin chewable tablet 81 mg 81 mg Oral QDAY buPROPion (WELLBUTRIN) tablet 100 mg 100 mg Oral TID busPIRone (BUSPAR) tablet 30 mg 30 mg Oral BID collagenase (SANTYL) topical ointment Topical QDAY docusate (COLACE) capsule 100 mg 100 mg Oral BID ferrous sulfate (FEOSOL, FEROSUL) tablet 325 mg 325 mg Oral TID w/ meals gabapentin (NEURONTIN) capsule 800 mg 800 mg Oral QID insulin aspart U-100 (NOVOLOG FLEXPEN) injection PEN 0-14 Units 0-14 Units Subcutaneous 5 X Day [START ON 01/28/2018] insulin aspart U-100 (NOVOLOG FLEXPEN) injection PEN 15 Units 15 Units Subcutaneous TID w/ meals insulin aspart U-100 (NOVOLOG FLEXPEN) injection PEN 3 Units 3 Units Subcutaneous QHS insulin glargine (LANTUS SOLOSTAR, BASAGLAR) injection PEN 20 Units 20 Units Subcutaneous QHS insulin NPH (HUMULIN N KwikPen) injection PEN 12 Units 12 Units Subcutaneous QDAY(21) lactobacillus rhamnosus GG (CULTURELLE) 15 billion cell capsule 1 capsule 1 capsule Oral BID w/meals levothyroxine (SYNTHROID) tablet 200 mcg 200 mcg Oral QDAY before breakfast lidocaine (LIDODERM) 5 % topical patch 2 patch 2 patch Topical QDAY meropenem (MERREM) IVP 500 mg 500 mg Intravenous Q6H* nortriptyline (PAMELOR) capsule 50 mg 50 mg Oral QHS oxyCODONE (ROXICODONE, OXY-IR) tablet 15 mg 15 mg Oral Once per day on Wed oxyCODONE SR (OXYCONTIN) tablet 10 mg 10 mg Oral BID pantoprazole DR (PROTONIX) tablet 40 mg 40 mg Oral QDAY(21) rivaroxaban (XARELTO) tablet 20 mg 20 mg Oral QDAY w/breakfast simvastatin (ZOCOR) tablet 20 mg 20 mg Oral QHS sodium chloride PF 0.9% flush 20 mL 20 mL Intravenous FLUSH TID vancomycin (VANCOCIN) 1,250 mg in dextrose 5% (D5W) IVPB 1,250 mg Intravenous Q12H* vancomycin, pharmacy to manage 1 each Service Per Pharmacy vitamin A & D topical ointment Topical BID WATER FOR INJECTION, STERILE IJ SOLN (Cabinet Override) NOW Continuous Infusions: PRN and Respiratory Meds:acetaminophen Q6H PRN, alum/mag hydroxide/simeth Q6H PRN, calcium carbonate Q4H PRN, milk of magnesia (CONC) Q4H PRN, ondansetron ( ZOFRAN) IV Q6H PRN, oxyCODONE Q4H PRN, pancrelipase 20,000 Units/ sodium bicarbonate 650 mg(#) PRN (Catalogue Librarian from Rx) Objective Vital Signs: Last Filed Vital Signs: 24 Hour Range BP: 125/59 (01/27 1641) Temp: 36.9 C (98.5 F) (01/27 1641) Pulse: 118 (01/27 1641) Respirations: 18 PER MINUTE (01/27 1641) SpO2: 95 % (01/27 1641) O2 Delivery: None (Room Air) (01/27 1641) BP: (108-125)/(47-71) Temp: [36.6 C (97.9 F)-38.8 C (101.9 F)] Pulse: [111-125] Respirations: [16 PER MINUTE-18 PER MINUTE] SpO2: [93 %-98 %] O2 Delivery: None (Room Air) Intensity Pain Scale 0-10 (Pain 1): 8 (01/27/181652) Vitals: 01/25/18 0551 01/26/18 0400 01/27/18 0721 Weight: 101 kg (222 lb 10.6 oz) 93.3 kg (205 lb 11 oz) 101.8 kg (224 lb 6.9 oz) Physical Exam Gen-A&O x 3 in nad HEENT-ngt in place Pulm-no distress Abd-ostomy in place MS-s/p left jamil-pelvectomy Lab Review Comprehensive Metabolic Profile Lab Results Component Value Date/Time NA 134 (L) 01/26/2018 05:00 AM K 4.3 01/26/2018 05:00 AM CL 99 01/26/2018 05:00 AM CO2 29 01/26/2018 05:00 AM GAP 6 01/26/2018 05:00 AM BUN 15 01/26/2018 05:00 AM CR 0.59 01/26/2018 05:00 AM GLU 222 (H) 01/26/2018 05:00 AM Lab Results Component Value Date/Time CA 8.4 (L) 01/26/2018 05:00 AM PO4 2.2 01/03/2018 05:10 AM ALBUMIN 2.4 (L) 01/25/2018 10:57 AM TOTPROT 5.6 (L) 01/25/2018 10:57 AM ALKPHOS 134 (H) 01/25/2018 10:57 AM AST 41 (H) 01/25/2018 10:57 AM ALT 68 (H) 01/25/2018 10:57 AM TOTBILI 0.2 (L) 01/25/2018 10:57 AM GFR >60 01/26/2018 05:00 AM GFRAA >60 01/26/2018 05:00 AM Lab Results Component Value Date TRIG 254 (H) 01/13/2018 TSH Date Value Ref Range Status 01/25/2018 10.130 (H) 0.35 - 5.00 MCU/ML Final No results found for: URMALBCRRAT Glucose testing Recent Labs 01/26/18 1253 01/26/18 1700 01/26/18 1812 01/26/18 2102 01/27/18 0300 01/27/18 0654 01/27/18 1155 01/27/18 1659 GLUPOC 229* 201* 175* 217* 150* 154* 204* 253* Hemoglobin A1C Date Value Ref Range Status 12/28/2017 6.5 (H) 4.0 - 6.0 % Final Comment: The ADA recommends that most patients with type 1 and type 2 diabetes maintain an A1c level <7%. Serenity Concepcion MD [phone] * Ruth Garcia - 01/27/2018 7:29 PM CDT Activity Therapy Patient participated in a pet therapy session with a volunteer, volunteers dog and this activity therapist. * Indy Isabel MD - 01/27/2018 5:23 PM CDT Formatting of this note may be different from the original. Infectious Diseases Progress Note Today's Date: 01/27/2018 Admission Date: 01/14/2018 Assessment: Recurrent fever 01/26 01/26 BC- neg to date 01/26 UA - 0-2 WBC Low grade fever 01/21-improved/resolved- source uncertain - Eschar of wound w/fat necrosis, ongoing sweats, no other new s/s -01/21 UA- 2-10 WBC, no culture -01/21 BC neg -01/21 KUB- -01/24- plastic eval of wounds- no surgical intervention given lyphedematous tissue, wound team, ongoing areas of dehiscence/eschar Transaminitis-improved 01/24 - LFT elevated 104/97 01/25 LFT improved 41/68 # GBS bacteremia w sepsis- source suspected left hip wound, less likely pna - Fever and leukocytosis began 12/20/17 - 4/3 L lower lobe infiltrate - read as atelectasis - 12/20 C. diff negative - 12/23 Bcx 1/2 set group B streptococcus; source seems most likely intra-pelvic; 12/24 bcx negative - CT pelvis 12/25: "Ill-defined fluid and air along the anterior margin of the surgical site away from the drain tip. However, no discrete drainable fluid collection is noted. - OR 01/10 for wound eval - no sign of infection - posterior wound starting to granulate, W[place] started # Candiduria - 12/21/17 UA: wbc 2-10, negative nitrite, 1+ luukocytes, Culture > 100,000 Liliana sp - Sensitivities not done, unsure if fluconazole susceptible; repeat urine culture negative 12/28 but improved with micafungin so is suspicion for fluconazole resistance - Treating given indwelling melchor and inability to remove melchor d/t recent bladder repair - ? Candidal intertrigo - groin/mons - Cath change in OR 01/10 - no bladder leak at that time - Micafungin course completed 01/16 # s/p hemipelvectomy for Chondrosarcoma - 11/25/17 MRI: a large lesion throughout the entire left hemipelvis that appeared to be centered within the ilium - 11/30/17 open biopsy: Chondrosarcoma - 11/26/17 CT: few small pulmonary nodules. will resect the masses in the chest later - admission 12/13/17- - 12/14/17: left hemipelvectomy, jamil sacrectomy. Complicated with bladder and urethral injury. Added Cystoscopy with left ureteral stent insertion, Bladder neck repair, Urethroplasty and repair of urethral injury, Vaginal closure. - Stool saturating wound. Diverting colostomy done 12/30. - 01/06 CT: left hemipelvectomy, edema w/in the operative bed- not changed except sl more gas, more focal gas/fluid alonger anterior/inferior and superior surgical margins. #night sweats - per pt worse past week - TSH high, T4 ok, on replacement, no hypotension /lyte disturbance suggestive of adrenal disease, no menses since probably 2012 per pt - stopped HRT just before surg*; getting intermittent steroid, no s/s alternate new infection # DVT - 11/30/17 IVC filter for DVT within the external iliac vein # Obese # HTN # DM # 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 # Depression # Generalized pain # abx allergy - allergic history to Cephalexin 'years ago' with skin rash and hot flash - tolerated Penicillin when she had dental caries Recommendations: 1. Agree w Vanco and Meropenem 2. Vanco trough 12-15 3. Monitor renal function daily while on vanco 4. FU cultures 5. Check CBC w diff, CMP 6. Repeat BC and obtain LA if recurrent fever 7. Hydration w fever 8. If no obvious source from blood or urine culture, would favor CT adb/pelvis to eval for ongoing deep fluid collection 9. Discussed w nurse and provided contact- they will page when wound team is back to change vac tomorrow. Reviewed wound notes, and discussed w nurse, Complexity of medical decision making is high b/c of the multi-system nature of the infectious disease process and concerns about the complexity of the patient illness including the sensitivity of the organisms being treated, the potential for drug toxicity and interactions, concerns about immunologic function, and interplay of other issues. Discussed w Rehab Interval History She had fever to 38.9 last pm. She is afebrile today, remains mild tachy- her base She was seen while participating in PT. She does not appear toxic at all. She denies cough, sob, n/v increased stool from ostomy, change in pain at wound, worsening left LE swelling , joint pain, pain or swelling at PIC line Left labia area remains erythematous w some pain per wound team ROS otherwise neg UA neg Antimicrobial Start date End date Erythromycin 12/13 Neomycin 12/13 12/13 Polymyxin B 12/14 12/14 Ertapenem 01/10 01/24 Gentamycin 12/14 12/15 Clindamycin 12/14 12/22 Pip/tazo 12/22 01/10 Fluconazole 12/22 12/30 Vancomycin 12/23 12/27 Micafungin 12/30 01/16 Estimated Creatinine Clearance: 107.2 mL/min (based on SCr of 0.59 mg/dL). Medications Scheduled Meds: aspirin chewable tablet 81 mg 81 mg Oral QDAY buPROPion (WELLBUTRIN) tablet 100 mg 100 mg Oral TID busPIRone (BUSPAR) tablet 30 mg 30 mg Oral BID collagenase (SANTYL) topical ointment Topical QDAY docusate (COLACE) capsule 100 mg 100 mg Oral BID ferrous sulfate (FEOSOL, FEROSUL) tablet 325 mg 325 mg Oral TID w/ meals gabapentin (NEURONTIN) capsule 800 mg 800 mg Oral QID insulin aspart U-100 (NOVOLOG FLEXPEN) injection PEN 0-14 Units 0-14 Units Subcutaneous 5 X Day insulin aspart U-100 (NOVOLOG FLEXPEN) injection PEN 14 Units 14 Units Subcutaneous TID after meals insulin aspart U-100 (NOVOLOG FLEXPEN) injection PEN 3 Units 3 Units Subcutaneous QHS insulin glargine (LANTUS SOLOSTAR, BASAGLAR) injection PEN 20 Units 20 Units Subcutaneous QHS insulin NPH (HUMULIN N KwikPen) injection PEN 12 Units 12 Units Subcutaneous QDAY(21) lactobacillus rhamnosus GG (CULTURELLE) 15 billion cell capsule 1 capsule 1 capsule Oral BID w/meals levothyroxine (SYNTHROID) tablet 200 mcg 200 mcg Oral QDAY before breakfast lidocaine (LIDODERM) 5 % topical patch 2 patch 2 patch Topical QDAY meropenem (MERREM) IVP 500 mg 500 mg Intravenous Q6H* nortriptyline (PAMELOR) capsule 50 mg 50 mg Oral QHS oxyCODONE (ROXICODONE, OXY-IR) tablet 15 mg 15 mg Oral Once per day on Wed oxyCODONE SR (OXYCONTIN) tablet 10 mg 10 mg Oral BID pantoprazole DR (PROTONIX) tablet 40 mg 40 mg Oral QDAY(21) rivaroxaban (XARELTO) tablet 20 mg 20 mg Oral QDAY w/breakfast simvastatin (ZOCOR) tablet 20 mg 20 mg Oral QHS sodium chloride PF 0.9% flush 20 mL 20 mL Intravenous FLUSH TID vancomycin (VANCOCIN) 1,250 mg in dextrose 5% (D5W) IVPB 1,250 mg Intravenous Q12H* vancomycin, pharmacy to manage 1 each Service Per Pharmacy vitamin A & D topical ointment Topical BID WATER FOR INJECTION, STERILE IJ SOLN (Cabinet Override) NOW Continuous Infusions: PRN and Respiratory Meds:acetaminophen Q6H PRN, alum/mag hydroxide/simeth Q6H PRN, calcium carbonate Q4H PRN, milk of magnesia (CONC) Q4H PRN, ondansetron ( ZOFRAN) IV Q6H PRN, oxyCODONE Q4H PRN, pancrelipase 20,000 Units/ sodium bicarbonate 650 mg(#) PRN (Catalogue Librarian from Rx) Physical Examination Vital Signs: Last Vital Signs: 24 Hour Range BP: 125/59 (01/27 1641) Temp: 36.9 C (98.5 F) (01/27 1641) Pulse: 118 (01/27 1641) Respirations: 18 PER MINUTE (01/27 1641) SpO2: 95 % (01/27 1641) O2 Delivery: None (Room Air) (01/27 1641) BP: (108-125)/(47-71) Temp: [36.6 C (97.9 F)-38.9 C (102.1 F)] Pulse: [68-125] Respirations: [16 PER MINUTE-18 PER MINUTE] SpO2: [93 %-98 %] O2 Delivery: None (Room Air) General appearance: alert, oriented, Lungs: clear bilaterally Heart: Regular rhythm, tachy, with no murmur Abdomen: soft, obese, normal bowel sounds, nontender Ext: s/p left hemipelvectomy; wounds dressed - RLE 1+ edema Skin: no new rashes noted Lines: PICC RUE- No erythema, swelling or tenderness Lab Review Hematology Recent Labs 01/25/18 1057 01/26/18 0500 WBC 10.7 11.6* HGB 9.6* 7.6* HCT 28.5* 23.5* PLTCT 477* 532* Chemistry Recent Labs 01/25/18 1057 01/26/18 0500 NA -- 134* K -- 4.3 CL -- 99 CO2 -- 29 BUN -- 15 CR -- 0.59 GFR -- >60 GLU -- 222* CA -- 8.4* ALBUMIN 2.4* -- ALKPHOS 134* -- AST 41* -- ALT 68* -- TOTBILI 0.2* -- Microbiology, Radiology and other Diagnostics Review Microbiology data reviewed. Pertinent radiology reviewed Indy Isabel MD Pager [phone] * Adrienne Zarate MD - 01/27/2018 4:31 PM CDT Brief Orthopaedic Update Note -Ok from ortho standpoint to begin hyperbaric oxygen therapy per Hyperbaric/ wound physician recommendations even if requires transition back to acute care setting due to transportation feasibility Please call with questions or issues Adrienne Zarate MD [phone] * Ruth Allen MD - 01/27/2018 12:44 PM CDT Formatting of this note may be different from the original. ATTESTATION I personally performed the banuelos portions of the E/M visit, discussed case with resident and concur with resident documentation of history, physical exam, assessment, and treatment plan unless otherwise noted. Patient with fever to 102.1 o/n. Started on vancomycin and merropenem per ID recs. UA neg, cultures pending. Will f/u with ID. Wound care following wound, may be candidate for HBOT. Will need to coordinate. Long d/w patient this morning about pain, agreed to titrate nortriptyline. Patient remains medically stable to participate in IRF program. Total time 35 minutes. Estimated counseling time 20 minutes. Counseled patient regarding pain control and rehab plan of care. Staff name: Ruth Allen MD Date: 01/27/2018 Physical Medicine & Rehabilitation Progress Note Today's Date: 01/27/2018 Admission Date: 01/14/2018 LOS: 12 days Insurance: [facility] Principal Problem: Left hip amputation status Active Problems: Chondrosarcoma (HCC) Acute blood loss as cause of postoperative anemia Depression Anxiety DM (diabetes mellitus) (HCC) 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 Chronic pain Post-op pain Bacteremia Amputated left leg (HCC) Candiduria Assessment/Plan: Beata Lema a 52 y.o.female[facility] the following issues : 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 Goals: household mobility at wheelchair level min A Tentative discharge date: 02/09/18 Recommended therapy after discharge: home health OT/PT Recommended equipment: Hospital bed, wheelchair/cushion (Numotion to eval ), slideboard, ramp Daily Functional Update: Transfers Device Sit to Stand Transfer: Assistive Device: Sliding Board (01/26/2018 10:15 AM) No Data Recorded Gait Device Assist Required Distance Gait: Assistive Device: IV Pole (12/01/2017 11:00 AM) No Data Recorded Gait Distance: 400 feet (12/01/2017 11:00 AM) Toileting Assist Required Equipment Toilet Transfer Toileting Assist: Total Assist (01/06/2018 1:00 PM) No Data Recorded No Data Recorded Dressing Lower Body LE Dressing Assist: Total Assist (01/26/2018 8:45 AM) Chrondrosarcoma s/p hemipelvectomy and hemisacrectomy Lymphedema wound and residual limb >wound vac in place. Changes M/W/F by wound vac team. PO 15mg oxycodone MWF for WV changes + lidocaine into sponge during acute hospitalization - wean off IV pain meds as able >Change dressings prn with dry sterile gauze and hypafix tape >vitamin A &D for labia wound, collagenase for left lower abdomen wound healing >Per plastic surgery note 01/24 not recommending further surgical intervention at this time >Per conversation with wound care planning on eval per to see if pt is appropriate for HBOT - d/w Dr. Schneider potential for compression for lymphedema Post-op pain in setting of chronic pain Phantom limb pain, neuropathic pain >Tylenol, oxycontin 10mg BID and oxycodone 20mg q3h prn. Lidoderm patch prn. > Increase nortriptyline to 50mg QHS > Continue gabapentin 800mg Q6h s/p diverting colostomy - Stool saturating wound. Diverting colostomy done 12/30 >wound/ostomy consulted, working on education with nursing Bladder injury, recent repair - bladder and urethral injuries during hemipelvectomy on 12/14/17 - underwent cystoscopy with left ureteral stent insertion, Bladder neck repair, Urethroplasty and repair of urethral injury, Vaginal closure >continue melchor catheter > Urology f/u after rehab discharge Chest lesions (metastases?) - 11/26/17 CT: few small pulmonary nodules. >plan is to resect the masses in the chest later >CT chest scheduled for 02/08 with f/u with CTS surgery GBS bacteremia w/ sepsis due to left hip wound - Fever and leukocytosis began 12/20/17, Bcx 1/2 positive for GBS on 12/23 -Fever 01/21 - blood cx and urine cx NGTD >Completed course of abx 01/23 ertapenem > Multiple fevers 01/26 in pm, started Vanc/Meropenem and obtained blood cx x2 and UA/reflex cx DVT - 11/30/17 IVC filter for DVT within the external iliac vein >cont Xarelto ABLA - Hgb 7.8 on admission to rehab - no concern for current bleed at this time, last transfusion 01/15 >monitor labs T2DM - A1c 6.5%, controlled - CAMP TENDER regimen: Metformin thousand milligrams twice a day, [id number] mg daily >Continue with Lantus 20 units QHS, novolog 12u postmeal, MDCF 5x per day >Continue NPH 30 units with nocturnal tube feeds + Novolog 8 units SQ qhs with nocturnal TFs - please hold NPH if tube feed are held and give at the start of tube feed 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 - CAMP TENDER 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 daily - TSH 2.1 this admission >levothyroxine increased 200 mcg on 01/26 >She will need repeat thyroid function tests in 6-8 weeks Major depressive disorder, recurrent, moderate CLAUDIA Adjustment disorder with mixed anxiety and depressed mood > continue CAMP TENDER Wellbutrin and buspar, started on nortriptyline this admission Nutrition - 01/24 albumin 2.4, Prealbumin 11.0, recheck 01/31 -Pt is currently meeting caloric but not protein needs >Current diet: diabeticand nocturnal tube feeds - Nutren 1.5 to 30ml/hr x 6 hrs + 2 pkt Prosource daily > Case Packer And Sealer consult and d/c tube feeds once eating to meet needs > weekly prealbumin and albumin HLD: holding CAMP TENDER statin Insomnia: nortriptyline 50mg qhs DVT Prophylaxis:Xarelto, will discharge on it Subjective Multiple high fevers overnight, pt was started on broad spectrum abx and blood/ urine cx's obtained. Pt resting comfortably in bed when seen this am. Pt stated she slept well last night, was wondering about HBOT. No other concerns when seen. Objective Vital Signs: Last Filed Vital Signs: 24 Hour Range BP: 148/54 (01/26 1615) Temp: 36.9 C (98.5 F) (01/26 1615) Pulse: 87 (01/26 1615) Respirations: 17 PER MINUTE (01/26 1615) SpO2: 92 % (01/26 1615) O2 Delivery: None (Room Air) (01/26 1615) BP: (94-148)/(52-59) Temp: [36.7 C (98.1 F)-37.7 C (99.9 F)] Pulse: [87-124] Respirations: [17 PER MINUTE-18 PER MINUTE] SpO2: [90 %-94 %] O2 Delivery: None (Room Air) Intensity Pain Scale 0-10 (Pain 1): 4 (01/26/18 1901) Vitals: 01/24/18 0332 01/25/18 0551 01/26/18 0400 Weight: 99.4 kg (219 lb 2.2 oz) 101 kg (222 lb 10.6 oz) 93.3 kg (205 lb 11 oz) Intake/Output Summary: (Last 24 hours) Intake/Output Summary (Last 24 hours) at 01/26/182043 Last data filed at 01/26/18 1800 Gross per 24 hour Intake 1075 ml Output 4150 ml Net -3075 ml Stool Occurrence: 1 Oral Diet Order: Diabetic 8051-9600 Kcal/day (60 g Carb/meal, 30 g Carb/HS snack ) Last BM Date: 01/26/18 Lab: Results for orders placed or performed during the hospital encounter of (from the past 24 hour(s)) POC GLUCOSE Collection Time: 01/25/18 9:26 PM # # Low-High Glucose, POC 163 (H) 70 - 100 MG/DL POC GLUCOSE Collection Time: 01/26/18 3:37 AM # # Low-High Glucose, POC 218 (H) 70 - 100 MG/DL BASIC METABOLIC PANEL CELLULAR THERAPEUTICS Collection Time: 01/26/18 5:00 AM # # Low-High Sodium 134 (L) 137 - 147 MMOL/L Potassium 4.3 3.5 - 5.1 MMOL/L Chloride 99 98 - 110 MMOL/L CO2 29 21 - 30 MMOL/L Anion Gap 6 3 - 12 Glucose 222 (H) 70 - 100 MG/DL Blood Urea Nitrogen 15 7 - 25 MG/DL Creatinine 0.59 0.4 - 1.00 MG/DL Calcium 8.4 (L) 8.5 - 10.6 MG/DL eGFR Non >60 >60 mL/min eGFR >60 >60 mL/min CBC CELLULAR THERAPEUTICS Collection Time: 01/26/18 5:00 AM # # Low-High White Blood Cells 11.6 (H) 4.5 - 11.0 K/UL RBC 2.88 (L) 4.0 - 5.0 M/UL Hemoglobin 7.6 (L) 12.0 - 15.0 GM/DL Hematocrit 23.5 (L) 36 - 45 % MCV 81.7 80 - 100 FL MCH 26.5 26 - 34 PG MCHC 32.4 32.0 - 36.0 G/DL RDW 18.7 (H) 11 - 15 % Platelet Count 532 (H) 150 - 400 K/UL MPV 7.2 7 - 11 FL POC GLUCOSE Collection Time: 01/26/18 6:29 AM # # Low-High Glucose, POC 179 (H) 70 - 100 MG/DL POC GLUCOSE Collection Time: 01/26/18 12:53 PM # # Low-High Glucose, POC 229 (H) 70 - 100 MG/DL POC GLUCOSE Collection Time: 01/26/18 5:00 PM # # Low-High Glucose, POC 201 (H) 70 - 100 MG/DL POC GLUCOSE Collection Time: 01/26/18 6:12 PM # # Low-High Glucose, POC 175 (H) 70 - 100 MG/DL Scheduled Meds: aspirin chewable tablet 81 mg 81 mg Oral QDAY buPROPion (WELLBUTRIN) tablet 100 mg 100 mg Oral TID busPIRone (BUSPAR) tablet 30 mg 30 mg Oral BID collagenase (SANTYL) topical ointment Topical QDAY docusate (COLACE) capsule 100 mg 100 mg Oral BID ferrous sulfate (FEOSOL, FEROSUL) tablet 325 mg 325 mg Oral TID w/ meals gabapentin (NEURONTIN) capsule 800 mg 800 mg Oral QID insulin aspart U-100 (NOVOLOG FLEXPEN) injection PEN 0-14 Units 0-14 Units Subcutaneous 5 X Day insulin aspart U-100 (NOVOLOG FLEXPEN) injection PEN 14 Units 14 Units Subcutaneous TID after meals insulin aspart U-100 (NOVOLOG FLEXPEN) injection PEN 3 Units 3 Units Subcutaneous QHS insulin glargine (LANTUS SOLOSTAR, BASAGLAR) injection PEN 20 Units 20 Units Subcutaneous QHS insulin NPH (HUMULIN N KwikPen) injection PEN 12 Units 12 Units Subcutaneous QDAY(21) lactobacillus rhamnosus GG (CULTURELLE) 15 billion cell capsule 1 capsule 1 capsule Oral BID w/meals levothyroxine (SYNTHROID) tablet 200 mcg 200 mcg Oral QDAY before breakfast lidocaine (LIDODERM) 5 % topical patch 2 patch 2 patch Topical QDAY nortriptyline (PAMELOR) capsule 25 mg 25 mg Oral QHS oxyCODONE (ROXICODONE, OXY-IR) tablet 15 mg 15 mg Oral Once per day on Wed oxyCODONE SR (OXYCONTIN) tablet 10 mg 10 mg Oral BID pantoprazole DR (PROTONIX) tablet 40 mg 40 mg Oral QDAY(21) rivaroxaban (XARELTO) tablet 20 mg 20 mg Oral QDAY w/breakfast simvastatin (ZOCOR) tablet 20 mg 20 mg Oral QHS sodium chloride PF 0.9% flush 20 mL 20 mL Intravenous FLUSH TID vitamin A & D topical ointment Topical BID Continuous Infusions: PRN and Respiratory Meds:acetaminophen Q6H PRN, alum/mag hydroxide/simeth Q6H PRN, calcium carbonate Q4H PRN, milk of magnesia (CONC) Q4H PRN, ondansetron ( ZOFRAN) IV Q6H PRN, oxyCODONE Q4H PRN, pancrelipase 20,000 Units/ sodium bicarbonate 650 mg(#) PRN (Catalogue Librarian from Rx) Physical Exam VS: BP 148/54 (BP Source: Arm, Left) | Pulse 87 | Temp 36.9 C (98.5 F) | Ht 160 cm (63") | Wt 93.3 kg (205 lb 11 oz) Comment: removed wound vacs from bed | LMP 01/14/2013 | SpO2 92% | BMI 36.44 kg/m Gen: awake, alert, NAD, corpak in place HEENT: left ear w/o erythema or drainage. CV: RRR, no murmur Pulm: CTAB, no w/r Abd: nondistended, nontender Extremities: mild edema rle, s/p hemipelvectomy on left with dressings and wound vac in place Skin: warm, dry Neuro: alert, oriented, speech fluent and clear, eomi, at least antigravity strength in remaining 3 extremities Therapy Notes & Labs Reviewed. Ravi Pride DO Pager [phone] * Jennifer Diaz RN - 01/27/2018 10:35 AM CDT Wound Ostomy Nursing Consult Service NAME:Beata Kaiser :1965 AGE: 52 y.o. ADMISSION DATE: 01/14/2018 DAYS ADMITTED: LOS: 13 days Reason for Visit: wound VAC Assessment/Plan: Principal Problem: Left hip amputation status Active Problems: Chondrosarcoma (HCC) Acute blood loss as cause of postoperative anemia Depression Anxiety DM (diabetes mellitus) (HCC) 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 Chronic pain Post-op pain Bacteremia Amputated left leg (HCC) Candiduria Wound/Ostomy Team contacted by bedside nursing staff re: leaking/alarming wound VAC dressing. Upon assessment, air leak identified at medial aspect of incision (superior to gluteal cleft). One strip of black VAC foam tucked into wound, contacting with foam already in place. Dressing secured with VAC drape. Seal obtained with settings of continuous -125mmHg. Please note, there are now 5 pieces of foam in wound base. Bedside nursing staff is aware of additional piece of foam to base. Next dressing change planned 01/28. Will continue to follow. Jennifer Diaz RN, BSN, CWON Wound/Ostomy Nursing Consult Service Office: [phone] Pager: [phone] Wound/Ostomy Team Pager (After Hours/Weekends): [phone] * Anita Bernal, PHARMD - 01/26/2018 10:16 PM CDT Formatting of this note may be different from the original. Pharmacy Vancomycin Note Subjective: Beata Kaiser is a 52 y.o. female being treated for suspected wound infection/diabetic ulcer with MRSA risk.. Objective: Current Vancomycin Orders Medication Dose Route Frequency vancomycin (VANCOCIN) 1,250 mg in dextrose 5% (D5W) IVPB 1,250 mg Intravenous Q12H* vancomycin, pharmacy to manage 1 each Service Per Pharmacy Day of Vancomycin therapy: 1 Additional Abx: meropenem Cultures: 12/23 blood culture with Group B strep, , , White Blood Cells Date/Time Value Ref Range Status 01/26/2018 0500 11.6 (H) 4.5 - 11.0 K/UL Final 01/25/2018 1057 10.7 4.5 - 11.0 K/UL Final 01/24/2018 0542 12.1 (H) 4.5 - 11.0 K/UL Final Creatinine Date/Time Value Ref Range Status 01/26/2018 0500 0.59 0.4 - 1.00 MG/DL Final 01/24/2018 0542 0.55 0.4 - 1.00 MG/DL Final Blood Urea Nitrogen Date/Time Value Ref Range Status 01/26/2018 0500 15 7 - 25 MG/DL Final Estimated CrCl: ~ 100 mL/min Intake/Output Summary (Last 24 hours) at 01/26/18 2216 Last data filed at 01/26/18 2100 Gross per 24 hour Intake 1075 ml Output 4325 ml Net -3250 ml Actual Weight: 93.3 kg (205 lb 11 oz) Comment: removed wound vacs from bed Dosing BW: 93 kg Assessment: Target levels for this patient: 15-20. Plan: 1. Will start vancomycin 1250 mg IV q12h 2. Next scheduled level(s): TBD 3. Pharmacy will continue to monitor and adjust therapy as needed. Anita Bernal, PHARMD 01/26/2018 * Shilpi Soto, RN - 01/26/2018 5:48 PM CDT Patient changed colostomy bag with RN supervision and minimal - moderate assistance. Patient was able to change bag and clean stoma with warm wash cloth. Encouraged patient to continue to learn and assist with managing colostomy. * Ruth Garcia - 01/26/2018 4:11 PM CDT Activity Therapy Patient met with a order entry representative from [facility], and other patients, to learn about and practice stress reduction through Biofeedback and deep breathing. This activity therapist referred patient to the session, and was present throughout. * Nneka Garsia, SANJAY - 01/26/2018 2:44 PM CDT Formatting of this note may be different from the original. Wound Ostomy Note NAME:Beata Kaiser :1965 AGE: 52 y.o. ADMISSION DATE: 01/14/2018 DAYS ADMITTED: LOS: 12 days Reason for Consult/Visit: wound not pressure and wound VAC Assessment/Plan: Principal Problem: Left hip amputation status Active Problems: Chondrosarcoma (HCC) Acute blood loss as cause of postoperative anemia Depression Anxiety DM (diabetes mellitus) (HCC) 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 Chronic pain Post-op pain Bacteremia Amputated left leg (HCC) Candiduria Wound Description (Comments): Wound Image 01/21/2018 12:15 PM Agree With My Assessment? Yes 01/08/2018 9:36 PM Wound Base Assessment Eschar;Gallardo;Yellow 01/26/2018 12:00 PM Surrounding Skin Assessment Induration;Macerated 01/26/2018 12:00 PM Wound Site Closure [place] 01/26/2018 12:00 PM Wound Drainage Amount Scant 01/26/2018 12:00 PM Wound Drainage Description Serous 01/26/2018 12:00 PM Wound Dressing Status Changed 01/26/2018 12:00 PM Wound Dressing and / or Treatment Abdominal Pad;Aquacel AG;Hypafix Tape 2017 12:00 PM Wound Length (cm) (Wound Team Only) 19 cm 01/24/2018 3:00 PM Wound Width (cm) (Wound Team Only) 5 cm 01/24/2018 3:00 PM Wound Depth (cm) (Wound Team Only) 0.1 01/24/2018 3:00 PM Wound Volume (cm^3) (Wound Team Only) 9.5 cm^3 01/24/2018 3:00 PM Wound Healing % (Wound Team Only) 9.52 01/24/2018 3:00 PM Number of days: 57 Wounds (NOT for Pressure Injuries) 12/14/17 1748 Left Abdomen Surgical Incision (Active) 12/14/17 1748 Abdomen Wound Orientation: Left Wound Type: Surgical Incision Wound Type:: Wound Description (Comments): Wound Image 01/17/2018 10:00 AM Agree With My Assessment? Except 12/30/2017 2:45 PM Wound Base Assessment Moist;Slough 01/26/2018 12:00 PM Surrounding Skin Assessment Intact;Erythema;Edema;Induration 01/26/2018 12:00 PM Wound Site Closure None 01/26/2018 12:00 PM Wound Drainage Amount Scant 01/26/2018 12:00 PM Wound Drainage Description Serous 01/26/2018 12:00 PM Wound Dressing Status Changed 01/26/2018 12:00 PM Wound Dressing and / or Treatment Collagenase;Abdominal Pad;Hypafix Tape 2017 12:00 PM Wound Length (cm) (Wound Team Only) 20 cm 01/24/2018 3:00 PM Wound Width (cm) (Wound Team Only) 4 cm 01/24/2018 3:00 PM Wound Depth (cm) (Wound Team Only) 0.1 01/24/2018 3:00 PM Wound Volume (cm^3) (Wound Team Only) 8 cm^3 01/24/2018 3:00 PM Wound Healing % (Wound Team Only) 4.76 01/24/2018 3:00 PM Number of days: 43 Wounds (NOT for Pressure Injuries) 12/23/17 1345 Left Labia (Active) 12/23/17 1345 Labia Wound Orientation: Left Wound Type: Wound Type:: Wound Description (Comments): Agree With My Assessment? Yes 01/07/2018 9:55 PM Wound Base Assessment Moist;Slough;[place] 01/26/2018 12:00 PM Surrounding Skin Assessment Intact;Induration;Erythema 01/26/2018 12:00 PM Wound Site Closure None 01/26/2018 12:00 PM Wound Drainage Amount Scant 01/26/2018 12:00 PM Wound Drainage Description Serous 01/26/2018 12:00 PM Wound Dressing Status Changed 01/26/2018 12:00 PM Wound Dressing and / or Treatment A & D Ointment;Foam (Biatain) 01/26/2018 12:00 PM Wound Length (cm) (Wound Team Only) 2 cm 01/24/2018 3:00 PM Wound Width (cm) (Wound Team Only) 1 cm 01/24/2018 3:00 PM Wound Depth (cm) (Wound Team Only) 0.1 01/24/2018 3:00 PM Wound Volume (cm^3) (Wound Team Only) 0.2 cm^3 01/24/2018 3:00 PM Wound Healing % (Wound Team Only) 89.33 01/24/2018 3:00 PM Number of days: 34 Wounds (NOT for Pressure Injuries) 12/30/17 1002 Left;Anterior Surgical Incision stump (Active) 12/30/17 1002 Wound Orientation: Left;Anterior Wound Type: Surgical Incision Wound Type:: stump Wound Description (Comments): Wound Image 01/21/2018 12:15 PM Agree With My Assessment? Yes 01/06/2018 8:00 PM Wound Base Assessment Eschar;Dry 01/26/2018 12:00 PM Surrounding Skin Assessment Induration 01/26/2018 12:00 PM Wound Site Closure Ceci 01/26/2018 12:00 PM Wound Drainage Amount None 01/26/2018 12:00 PM Wound Drainage Description Brown;Serosanguineous 01/12/2018 10:55 PM Wound Dressing Status Changed 01/26/2018 12:00 PM Wound Dressing and / or Treatment Abdominal Pad;Hypafix Tape 01/26/2018 12:00 PM Wound Length (cm) (Wound Team Only) 25 cm 01/24/2018 3:00 PM Wound Width (cm) (Wound Team Only) 16 cm 01/24/2018 3:00 PM Wound Depth (cm) (Wound Team Only) 0.1 01/24/2018 3:00 PM Wound Volume (cm^3) (Wound Team Only) 40 cm^3 01/24/2018 3:00 PM Wound Healing % (Wound Team Only) -17.1 01/24/2018 3:00 PM Number of days: 27 Wounds (NOT for Pressure Injuries) 01/10/18 1100 Hip Surgical Incision (Active) 01/10/18 1100 Hip Wound Orientation: Wound Type: Surgical Incision Wound Type:: Wound Description (Comments): Wound Image 01/21/2018 12:15 PM Agree With My Assessment? Except 01/24/2018 4:00 AM Wound Base Assessment Moist;Gallardo;Yellow;Slough;Eschar 01/26/2018 12:00 PM Surrounding Skin Assessment Macerated;Induration;Edema 01/26/2018 12:00 PM Wound Site Closure Ceci;Sutures;Wound Adhesive Bandage 01/26/2018 12:00 PM Wound Drainage Amount Copious 01/26/2018 12:00 PM Wound Drainage Description Serosanguineous 01/26/2018 12:00 PM Wound Dressing Status Changed 01/26/2018 12:00 PM Wound Dressing and / or Treatment VAC @ -125 mm/Hg;VAC sponge - black;VAC tx: Continuous, ;Goojetel AG 01/26/2018 12:00 PM Wound Length (cm) (Wound Team Only) 8 cm 01/24/2018 3:00 PM Wound Width (cm) (Wound Team Only) 18 cm 01/24/2018 3:00 PM Wound Depth (cm) (Wound Team Only) 27 01/24/2018 3:00 PM Wound Volume (cm^3) (Wound Team Only) 3888 cm^3 01/24/2018 3:00 PM Wound Healing % (Wound Team Only) -66.15 01/24/2018 3:00 PM Tunneling in CM (Wound Team Only) 15 cm 01/24/2018 3:00 PM Tunnelling Location 3 01/24/2018 3:00 PM Number of days: 16 Colostomy 12/30/17 1209 Right (Active) 12/30/17 1209 Right Agree With My Assessment? Except 01/24/2018 4:00 AM Stoma Assessment [place];Red 01/26/2018 2:30 PM Drainage Description Brown 01/26/2018 2:30 PM Peristomal Skin Assessment Dry;Intact 01/26/2018 2:30 PM Dressing Status Bag Changed 01/26/2018 2:30 PM Drain Output (ml) 300 ml 01/25/2018 11:00 PM Pt seen today for wound vac change. No significant changes on the wound. Dr barrera rashid see wound and look at possibility of HBO therapy to help with the healing and decreasing the edema. Dicussed current wound care with him. He is in agreement of the wound vac currently to help manage the drainage, changing MWF. Aquacel around the vac to help with blisters and prevent further moisture breakdown. Dry Gauze along eschar areas was well. As I have been doing, he recommends continuing to incorporate the entire incision into the vac dressing/ drape to help minimize leaks. Able to get a good seal today with just 1 wound vac machine and it is at - 125mmHg Collagenase to lower abdominal region to help that area which is not part of the incision. Area on labia still with erythema and pain. Concern for added pressure to the area from the catheter due to swelling. Place biatain foam around the melchor to prevent any breakdown. Will continue to follow Procedure: Negative Wound Therapy Dressing Change Anesthesia Type: Not Applicable or None Provider(s) and Role: RN Negative Wound Pressure Device Type: KCI VAC Contact layer: no Wound dimension (length x width x depth, tunneling, undermining): Number of sponges in the wound prior to dressing change: 4 Number of sponges removed from the wound: 4 Type of sponge: Black foam Number of sponges placed in the wound: 4 Nneka Garsia RN Thank you Opal Garsia RN, BSN Wound /Ostomy Team Pager [phone] After Hours Wound/Ostomy team pager [phone] * Leia Zimmerman - 01/26/2018 11:16 AM CDT CLINICAL NUTRITION Clinical Nutrition Follow-Up Summary Nutrition Assessment of Patient: Malnutrition Assessment: Adequately nourished prior to admission Current Oral Intake: Adequate Estimated Calorie Needs: 1660 (30kcal/kg of dw 55kg) Estimated Protein Needs: 100-120 (1.5-2.2g/kg of dw 55kg) Oral Diet Order: Diabetic 3981-8874 Kcal/day (60 g Carb/meal, 30 g Carb/HS snack ) Oral Supplement: Boost Glucose Control, BID Current EN Order: Nutren 1.5 @ 75ml/hr x's 6 hrs from 4107-5602, 3 ProSource/ day (At goal will provide: 855kcal (52% est needs), 76 g protein (63-76% est needs), and 345ml free water/day). She is also getting 30ml water flush Q 4 hrs. Combined Routes of Nutrition Average (7-day PO intake + EN): Intake (calories) Daily Average : 2423 kilocalories (147% of goal) Intake (protein) Daily Average : 147 grams (123% of high goal) 7-day Calorie Count average: 1568 kcal (94% of goal) 71g protein (71% of low end goal) 52 yof admitted to [facility] 01/14/18 s/p L hemipelvectomy 12/14 due to pelvic mass/ chondrosarcoma. PMH of DM (A1c 6.5) and depression. Pt with stool soilage issues prohibiting wound healing had colostomy 12/30. TPN was added to enhance nutrition followed by supplemental EN. I&D with wound vac 01/10. Per Calorie count average x 7 days, pt is meeting ~94% of kcal, 71% protein needs (shown above). She endorses a good appetite, but continues to c/o food choices. She is consistently adding in 1-2 Boost GC per day. Per team conference discussion, plan is to continue EN regimen 2/2 need for wound healing in presence of low pre -albumin of 11.0. Proposed change to EN to reduce caloric load while ensuring increased protein needs are met; team receptive. Pt denies GI distress. Plan to adjust insulin for home regimen closer to dc of TF. BG POC 179; MDCF, Novolog, Lantus on board with Humulin pending. Weight is stable. Recommendation: Pt is exceeding caloric goals, but is not meeting protein needs: Decrease Nutren 1.5 to 30ml/hr x 6 hrs + 2 pkt Prosource daily. Encourage consistent intake of at least 2 Glucose Control Boost per day. EN + Prosource will provide 390kcal, 42g protein, 137ml free water. Add minimum of 30ml water flush pre/post Prosource + additional fluids per team. With pt consistent daily intake average of 1600kcal and 70g protein, 100% needs should be met with regimen change. Continue calorie count through 5/11 until next follow up. Intervention / Plan: EN recs for calorie control, increased protein Monitor combined routes of nutrition, wt, labs, skin, gi, meds, fluids Nutrition Diagnosis: Nutrition Diagnosis: Increased nutrient needs, specify: Etiology: protein: demand for wound healing Signs & Symptoms: s/p hemipelvectomy Goals: Transition from enteral to oral Time Frame: Within 72 Hours Status: Partially met;new goal established Combined routes of nutrition meeting 100% of nutritional needs Time Frame: Within 5 Days Status: Met;Ongoing Leia Zimmerman RD, LD *[id number] * Adrienne Zarate MD - 01/26/2018 11:00 AM CDT Formatting of this note may be different from the original. Subjective: No acute events overnight. Pain generally well controlled as a whole but waxes and wanes. She states she is somewhat discouraged by her perceived lack of progress with rehab and some sadness about her potential discharge date maybe being pushed back. Otherwise is doing ok. Appetite has been good. Objective: Blood pressure 113/59, pulse 120, temperature 36.7 C (98.1 F), height 160 cm (63"), weight 93.3 kg (205 lb 11 oz), last menstrual period 2012, SpO2 94 %. General: AAOx3, NAD Cardiac: tachycardic Respirations: Unlabored Abdomen: soft, nd, induration about the distal pannus around wounds with scabbing and underlying granulation tissue that is essentially unchanged, no sign of infection, colostomy present Extremities: Dressings intact, wound vac holding suction, multiple surrounding eschars and wounds in various stages of healing. WV: 850 ml/24 hrs No results for input(s): PTT, INR in the last 72 hours. CBC w/Diff Lab Results Component Value Date/Time WBC 11.6 (H) 01/26/2018 05:00 AM HGB 7.6 (L) 01/26/2018 05:00 AM HCT 23.5 (L) 01/26/2018 05:00 AM PLTCT 532 (H) 01/26/2018 05:00 AM Basic Metabolic Profile Lab Results Component Value Date/Time NA 134 (L) 01/26/2018 05:00 AM K 4.3 01/26/2018 05:00 AM CL 99 01/26/2018 05:00 AM CO2 29 01/26/2018 05:00 AM GAP 6 01/26/2018 05:00 AM Lab Results Component Value Date/Time BUN 15 01/26/2018 05:00 AM CR 0.59 01/26/2018 05:00 AM GLU 222 (H) 01/26/2018 05:00 AM A/P: 52 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 -Management and pain control per rehab -Recommend continue melchor catheter for wound healing -Xarelto for DVT -MWF WV changes with wound team -Recommend ongoing psychology visits per patient request for coping strategies -Compression shorts throughout day as able -Surgical dressings may be changed PRN with dry sterile gauze and hypafix tape -Other wounds per wound team recs -Appreciate nutrition recommendations about corpak duration -Plastic surgery consult- appreciate recs regarding any intervention for abdoulaye- incisional wounds -Will continue to follow, call with questions Adrienne Zarate MD [phone] * Ruth Allen MD - 01/26/2018 9:37 AM CDT Formatting of this note may be different from the original. ATTESTATION I personally performed the banuelos portions of the E/M visit, discussed case with resident and concur with resident documentation of history, physical exam, assessment, and treatment plan unless otherwise noted. Labs and VS reviewed and stable. My additions to the resident's note are in the text and highlighted in blue. Per d/w rehab team at conference, patient making progress towards goal of min A with wheelchair, cushion, slideboard, ramp, hospital bed. Tentative discharge date extended to 02/09/18 based on progress to date, goals and medical complexity including wound care. Progress this week, min A x2 slideboard transfers, sitting with supervision for edge of bed ADLs, tolerating 40 minutes at one time in the wheelchair, colostomy training ongoing, on MoCA WNL. Recommending HH therapies at time of discharge from rehab, but patient is not medically stable for a discharge at this time. Time spent with patient, majority spent on counseling patient/family and rest on coordination of rehab plan of care: 25 minutes Time spent coordination care/discharge in team huddle/conference: 10 minutes Total time: 35 minutes Staff name: Ruth Allen MD Date: 01/26/2018 Physical Medicine & Rehabilitation Progress Note Today's Date: 01/26/2018 Admission Date: 01/14/2018 LOS: 12 days Insurance: [facility] Principal Problem: Left hip amputation status Active Problems: Chondrosarcoma (HCC) Acute blood loss as cause of postoperative anemia Depression Anxiety DM (diabetes mellitus) (HCC) 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 Chronic pain Post-op pain Bacteremia Amputated left leg (HCC) Candiduria Assessment/Plan: Beata Lema a 52 y.o.female[facility] the following issues : 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 Goals: household mobility at wheelchair level min A Tentative discharge date: 02/09/18 Recommended therapy after discharge: home health OT/PT Recommended equipment: Hospital bed, wheelchair/cushion (Numotion to eval ), slideboard, ramp Daily Functional Update: Transfers Device Sit to Stand Transfer: Assistive Device: Sliding Board (01/25/2018 1:00 PM) No Data Recorded Gait Device Assist Required Distance Gait: Assistive Device: IV Pole (12/01/2017 11:00 AM) No Data Recorded Gait Distance: 400 feet (12/01/2017 11:00 AM) Toileting Assist Required Equipment Toilet Transfer Toileting Assist: Total Assist (01/06/2018 1:00 PM) No Data Recorded No Data Recorded Dressing Lower Body LE Dressing Assist: Total Assist (01/21/2018 8:30 AM) Chrondrosarcoma s/p hemipelvectomy and hemisacrectomy Lymphedema wound and residual limb >wound vac in place. Changes M/W/F by wound vac team. PO 15mg oxycodone MWF for WV changes + lidocaine into sponge during acute hospitalization - wean off IV pain meds as able >Change dressings prn with dry sterile gauze and hypafix tape >vitamin A &D for labia wound, collagenase for left lower abdomen wound healing >Per plastic surgery note 01/24 not recommending further surgical intervention at this time >Per conversation with wound care planning on eval per to see if pt is appropriate for HBOT - d/w Dr. Schneider potential for compression for lymphedema Post-op pain in setting of chronic pain Phantom limb pain, neuropathic pain >Tylenol, oxycontin 10mg BID and oxycodone 20mg q3h prn. Lidoderm patch prn. > nortriptyline 25mg HS - consider titrating > Continue gabapentin 800mg Q6h s/p diverting colostomy - Stool saturating wound. Diverting colostomy done 12/30 >wound/ostomy consulted, working on education with nursing Bladder injury, recent repair - bladder and urethral injuries during hemipelvectomy on 12/14/17 - underwent cystoscopy with left ureteral stent insertion, Bladder neck repair, Urethroplasty and repair of urethral injury, Vaginal closure >continue melchor catheter > Urology f/u after rehab discharge Chest lesions (metastases?) - 11/26/17 CT: few small pulmonary nodules. >plan is to resect the masses in the chest later >CT chest scheduled for 02/08 with f/u with CTS surgery GBS bacteremia w/ sepsis due to left hip wound - Fever and leukocytosis began 12/20/17, Bcx 1/2 positive for GBS on 12/23 -Fever 01/21 - blood cx and urine cx NGTD >Completed course of abx / ertapenem > ID following, will monitor off of abx > If recurrent high grade fever, repeat BC, obtain UA and urine culture and restart atbx empirically w vanco and Meropenem Candiduria (resolved) - Treating given indwelling melchor and inability to remove melchor d/t recent bladder repair > micafungin d/c'ed on 01/17 DVT - 11/30/17 IVC filter for DVT within the external iliac vein >cont Xarelto ABLA - Hgb 7.8 on admission to rehab - no concern for current bleed at this time, last transfusion 01/15 >monitor labs T2DM - A1c 6.5%, controlled - CAMP TENDER regimen: Metformin thousand milligrams twice a day, [id number] mg daily >Continue with Lantus 20 units QHS, novolog 12u postmeal, MDCF 5x per day >Continue NPH 30 units with nocturnal tube feeds + Novolog 8 units SQ qhs with nocturnal TFs - please hold NPH if tube feed are held and give at the start of tube feed 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 - CAMP TENDER 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 daily - TSH 2.1 this admission >levothyroxine increased 200 mcg on 01/26 >She will need repeat thyroid function tests in 6-8 weeks Major depressive disorder, recurrent, moderate CLAUDIA Adjustment disorder with mixed anxiety and depressed mood > continue CAMP TENDER Wellbutrin and buspar Nutrition - 01/17 albumin 2.6, Prealbumin 13.0 - 01/24 albumin 2.4, Prealbumin 11.0, recheck 01/31 -Pt is currently meeting caloric but not protein needs >Current diet: diabeticand nocturnal tube feeds - Nutren 1.5 to 30ml/hr x 6 hrs + 2 pkt Prosource daily > Case Packer And Sealer consult and d/c tube feeds once eating to meet needs > weekly prealbumin and albumin HLD: holding CAMP TENDER statin Insomnia: nortriptyline 25mg qhs DVT Prophylaxis:Xarelto, will discharge on it Subjective No acute events overnight. Pt stated that she slept well last night and her pain is improved this am. Pt stated she feels that her slide board transfers are improving. No other questions/concerns when seen. Objective Vital Signs: Last Filed Vital Signs: 24 Hour Range BP: 113/59 (01/26 819) Temp: 36.7 C (98.1 F) (01/26 819) Pulse: 120 (01/26 819) Respirations: 18 PER MINUTE (01/26 819) SpO2: 94 % (01/26 819) O2 Delivery: None (Room Air) (01/26 819) BP: (94-117)/(48-60) Temp: [36.6 C (97.8 F)-37.7 C (99.9 F)] Pulse: [114-124] Respirations: [18 PER MINUTE] SpO2: [90 %-96 %] O2 Delivery: None (Room Air) Intensity Pain Scale 0-10 (Pain 1): 2 (01/26/18 0752) Vitals: 01/24/18 0332 01/25/18 0551 01/26/18 0400 Weight: 99.4 kg (219 lb 2.2 oz) 101 kg (222 lb 10.6 oz) 93.3 kg (205 lb 11 oz) Intake/Output Summary: (Last 24 hours) Intake/Output Summary (Last 24 hours) at 01/26/18 0937 Last data filed at 01/26/18 0824 Gross per 24 hour Intake 1275 ml Output 4200 ml Net -2925 ml Stool Occurrence: 1 Oral Diet Order: Diabetic [id number] Kcal/day (60 g Carb/meal, 30 g Carb/HS snack ) Last BM Date: 01/25/18 Lab: Results for orders placed or performed during the hospital encounter of (from the past 24 hour(s)) CBC AND DIFF Collection Time: 01/25/18 10:57 AM # # Low-High White Blood Cells 10.7 4.5 - 11.0 K/UL RBC 3.54 (L) 4.0 - 5.0 M/UL Hemoglobin 9.6 (L) 12.0 - 15.0 GM/DL Hematocrit 28.5 (L) 36 - 45 % MCV 80.4 80 - 100 FL MCH 27.2 26 - 34 PG MCHC 33.8 32.0 - 36.0 G/DL RDW 19.1 (H) 11 - 15 % Platelet Count 477 (H) 150 - 400 K/UL MPV 7.0 7 - 11 FL Neutrophils 70 41 - 77 % Lymphocytes 9 (L) 24 - 44 % Monocytes 12 4 - 12 % Eosinophils 8 (H) 0 - 5 % Basophils 1 0 - 2 % Absolute Neutrophil Count 7.60 (H) 1.8 - 7.0 K/UL Absolute Lymph Count 1.00 1.0 - 4.8 K/UL Absolute Monocyte Count 1.30 (H) 0 - 0.80 K/UL Absolute Eosinophil Count 0.90 (H) 0 - 0.45 K/UL Absolute Basophil Count 0.10 0 - 0.20 K/UL LIVER FUNCTION PANEL Collection Time: 01/25/18 10:57 AM # # Low-High Total Bilirubin 0.2 (L) 0.3 - 1.2 MG/DL Bilirubin, Direct <0.1 <0.4 MG/DL Albumin 2.4 (L) 3.5 - 5.0 G/DL Alk Phosphatase 134 (H) 25 - 110 U/L AST (SGOT) 41 (H) 7 - 40 U/L ALT (SGPT) 68 (H) 7 - 56 U/L Total Protein 5.6 (L) 6.0 - 8.0 G/DL POC GLUCOSE Collection Time: 01/25/18 11:51 AM # # Low-High Glucose, POC 212 (H) 70 - 100 MG/DL POC GLUCOSE Collection Time: 01/25/18 4:58 PM # # Low-High Glucose, POC 292 (H) 70 - 100 MG/DL POC GLUCOSE Collection Time: 01/25/18 9:26 PM # # Low-High Glucose, POC 163 (H) 70 - 100 MG/DL POC GLUCOSE Collection Time: 01/26/18 3:37 AM # # Low-High Glucose, POC 218 (H) 70 - 100 MG/DL BASIC METABOLIC PANEL CELLULAR THERAPEUTICS Collection Time: 01/26/18 5:00 AM # # Low-High Sodium 134 (L) 137 - 147 MMOL/L Potassium 4.3 3.5 - 5.1 MMOL/L Chloride 99 98 - 110 MMOL/L CO2 29 21 - 30 MMOL/L Anion Gap 6 3 - 12 Glucose 222 (H) 70 - 100 MG/DL Blood Urea Nitrogen 15 7 - 25 MG/DL Creatinine 0.59 0.4 - 1.00 MG/DL Calcium 8.4 (L) 8.5 - 10.6 MG/DL eGFR Non >60 >60 mL/min eGFR >60 >60 mL/min CBC CELLULAR THERAPEUTICS Collection Time: 01/26/18 5:00 AM # # Low-High White Blood Cells 11.6 (H) 4.5 - 11.0 K/UL RBC 2.88 (L) 4.0 - 5.0 M/UL Hemoglobin 7.6 (L) 12.0 - 15.0 GM/DL Hematocrit 23.5 (L) 36 - 45 % MCV 81.7 80 - 100 FL MCH 26.5 26 - 34 PG MCHC 32.4 32.0 - 36.0 G/DL RDW 18.7 (H) 11 - 15 % Platelet Count 532 (H) 150 - 400 K/UL MPV 7.2 7 - 11 FL POC GLUCOSE Collection Time: 01/26/18 6:29 AM # # Low-High Glucose, POC 179 (H) 70 - 100 MG/DL Scheduled Meds: aspirin chewable tablet 81 mg 81 mg Oral QDAY buPROPion (WELLBUTRIN) tablet 100 mg 100 mg Oral TID busPIRone (BUSPAR) tablet 30 mg 30 mg Oral BID collagenase (SANTYL) topical ointment Topical QDAY docusate (COLACE) capsule 100 mg 100 mg Oral BID ferrous sulfate (FEOSOL, FEROSUL) tablet 325 mg 325 mg Oral TID w/ meals gabapentin (NEURONTIN) capsule 800 mg 800 mg Oral QID insulin aspart U-100 (NOVOLOG FLEXPEN) injection PEN 0-14 Units 0-14 Units Subcutaneous 5 X Day insulin aspart U-100 (NOVOLOG FLEXPEN) injection PEN 14 Units 14 Units Subcutaneous TID after meals insulin aspart U-100 (NOVOLOG FLEXPEN) injection PEN 8 Units 8 Units Subcutaneous QHS insulin glargine (LANTUS SOLOSTAR, BASAGLAR) injection PEN 20 Units 20 Units Subcutaneous QHS insulin NPH (HUMULIN N KwikPen) injection PEN 32 Units 32 Units Subcutaneous QDAY(21) lactobacillus rhamnosus GG (CULTURELLE) 15 billion cell capsule 1 capsule 1 capsule Oral BID w/meals levothyroxine (SYNTHROID) tablet 200 mcg 200 mcg Oral QDAY before breakfast lidocaine (LIDODERM) 5 % topical patch 2 patch 2 patch Topical QDAY nortriptyline (PAMELOR) capsule 25 mg 25 mg Oral QHS oxyCODONE (ROXICODONE, OXY-IR) tablet 15 mg 15 mg Oral Once per day on Wed oxyCODONE SR (OXYCONTIN) tablet 10 mg 10 mg Oral BID pantoprazole DR (PROTONIX) tablet 40 mg 40 mg Oral QDAY(21) rivaroxaban (XARELTO) tablet 20 mg 20 mg Oral QDAY w/breakfast simvastatin (ZOCOR) tablet 20 mg 20 mg Oral QHS sodium chloride PF 0.9% flush 20 mL 20 mL Intravenous FLUSH TID vitamin A & D topical ointment Topical BID Continuous Infusions: PRN and Respiratory Meds:acetaminophen Q6H PRN, alum/mag hydroxide/simeth Q6H PRN, calcium carbonate Q4H PRN, milk of magnesia (CONC) Q4H PRN, ondansetron ( ZOFRAN) IV Q6H PRN, oxyCODONE Q4H PRN, pancrelipase 20,000 Units/ sodium bicarbonate 650 mg(#) PRN (Catalogue Librarian from Rx) Physical Exam VS: BP 113/59 (BP Source: Arm, Left) | Pulse 120 | Temp 36.7 C (98.1 F) | Ht 160 cm (63") | Wt 93.3 kg (205 lb 11 oz) Comment: removed wound vacs from bed | LMP 01/14/2013 | SpO2 94% | BMI 36.44 kg/m Gen: awake, alert, NAD, corpak in place HEENT: left ear w/o erythema or drainage. CV: RRR, no murmur Pulm: CTAB, no w/r Abd: nondistended, nontender Extremities: mild edema rle, s/p hemipelvectomy on left with dressings and wound vac in place Skin: warm, dry Neuro: alert, oriented, speech fluent and clear, eomi, at least antigravity strength in remaining 3 extremities Therapy Notes & Labs Reviewed. Ravi Pride DO Pager [phone] * Serenity Concepcion MD - 01/26/2018 8:28 AM CDT Formatting of this note may be different from the original. Endocrine Progress Note Today's Date: 01/26/2018 Admission Date: 01/14/2018 LOS: 12 days Impression: Principal Problem: Left hip amputation status Active Problems: Chondrosarcoma (HCC) Acute blood loss as cause of postoperative anemia Depression Anxiety DM (diabetes mellitus) (HCC) 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 Chronic pain Post-op pain Bacteremia Amputated left leg (HCC) Candiduria Recommendations: With change in enteral feeds, we will decrease NPH to 12 units SQ qhs with nocturnal tube feeds + Novolog 3 units SQ qhs with nocturnal TFs Hold if TFs are interrupted Discontinue if TFs are stopped Lantus 20 units SQ qhs Increase Novolog 14 units SQ TID with meals - post meal dosing Novolog MDCF Continue LT4 therapy Increase to 200mcg on 01.25.2018 due to continued elevation of TSH / low range normal FT4 Repeat TSH testing in 6 weeks On statin therapy HPI: Beata Kaiser is a 52 y.o. female. At time of my visit, ostomy change underway. Tolerating PO intake. No hypoglycemia. On enteral feeds -- Nutren 1.5 from 10pm to 4am. 75mL per hour. 450mL total volume. Per RD note today -- Decrease Nutren 1.5 to 30ml per hour x 6 hours. 180mL total volume. Orders placed for this change. Historical data -- S/p left hemipelvectomy DM2 with stress hyperglycemia HgbA1C 6.5%. CAMP TENDER meds: Metformin + Jardiance / PCP in [place], [place] Past Medical History: Diagnosis Date Anxiety Back pain Depression DM (diabetes mellitus) (HCC) 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 Review of systems: Low grade temp noted. No oxygen requirements. Medications Scheduled Meds: aspirin chewable tablet 81 mg 81 mg Oral QDAY buPROPion (WELLBUTRIN) tablet 100 mg 100 mg Oral TID busPIRone (BUSPAR) tablet 30 mg 30 mg Oral BID collagenase (SANTYL) topical ointment Topical QDAY docusate (COLACE) capsule 100 mg 100 mg Oral BID ferrous sulfate (FEOSOL, FEROSUL) tablet 325 mg 325 mg Oral TID w/ meals gabapentin (NEURONTIN) capsule 800 mg 800 mg Oral QID insulin aspart U-100 (NOVOLOG FLEXPEN) injection PEN 0-14 Units 0-14 Units Subcutaneous 5 X Day insulin aspart U-100 (NOVOLOG FLEXPEN) injection PEN 14 Units 14 Units Subcutaneous TID after meals insulin aspart U-100 (NOVOLOG FLEXPEN) injection PEN 3 Units 3 Units Subcutaneous QHS insulin glargine (LANTUS SOLOSTAR, BASAGLAR) injection PEN 20 Units 20 Units Subcutaneous QHS insulin NPH (HUMULIN N KwikPen) injection PEN 12 Units 12 Units Subcutaneous QDAY(21) lactobacillus rhamnosus GG (CULTURELLE) 15 billion cell capsule 1 capsule 1 capsule Oral BID w/meals levothyroxine (SYNTHROID) tablet 200 mcg 200 mcg Oral QDAY before breakfast lidocaine (LIDODERM) 5 % topical patch 2 patch 2 patch Topical QDAY nortriptyline (PAMELOR) capsule 25 mg 25 mg Oral QHS oxyCODONE (ROXICODONE, OXY-IR) tablet 15 mg 15 mg Oral Once per day on Wed oxyCODONE SR (OXYCONTIN) tablet 10 mg 10 mg Oral BID pantoprazole DR (PROTONIX) tablet 40 mg 40 mg Oral QDAY(21) rivaroxaban (XARELTO) tablet 20 mg 20 mg Oral QDAY w/breakfast simvastatin (ZOCOR) tablet 20 mg 20 mg Oral QHS sodium chloride PF 0.9% flush 20 mL 20 mL Intravenous FLUSH TID vitamin A & D topical ointment Topical BID Continuous Infusions: PRN and Respiratory Meds:acetaminophen Q6H PRN, alum/mag hydroxide/simeth Q6H PRN, calcium carbonate Q4H PRN, milk of magnesia (CONC) Q4H PRN, ondansetron ( ZOFRAN) IV Q6H PRN, oxyCODONE Q4H PRN, pancrelipase 20,000 Units/ sodium bicarbonate 650 mg(#) PRN (Catalogue Librarian from Rx) Objective Vital Signs: Last Filed Vital Signs: 24 Hour Range BP: 148/54 (01/26 1615) Temp: 36.9 C (98.5 F) (01/26 1615) Pulse: 87 (01/26 1615) Respirations: 17 PER MINUTE (01/26 1615) SpO2: 92 % (01/26 1615) O2 Delivery: None (Room Air) (01/26 1615) BP: (94-148)/(48-59) Temp: [36.6 C (97.8 F)-37.7 C (99.9 F)] Pulse: [87-124] Respirations: [17 PER MINUTE-18 PER MINUTE] SpO2: [90 %-94 %] O2 Delivery: None (Room Air) Intensity Pain Scale 0-10 (Pain 1): 6 (01/26/18 1629) Vitals: 01/24/18 0332 01/25/18 0551 01/26/18 0400 Weight: 99.4 kg (219 lb 2.2 oz) 101 kg (222 lb 10.6 oz) 93.3 kg (205 lb 11 oz) Physical Exam Gen-alert in no distress; ostomy change underway Abd-ostomy in place MS-s/p left jamil-pelvectomy Lab Review Comprehensive Metabolic Profile Lab Results Component Value Date/Time NA 134 (L) 01/26/2018 05:00 AM K 4.3 01/26/2018 05:00 AM CL 99 01/26/2018 05:00 AM CO2 29 01/26/2018 05:00 AM GAP 6 01/26/2018 05:00 AM BUN 15 01/26/2018 05:00 AM CR 0.59 01/26/2018 05:00 AM GLU 222 (H) 01/26/2018 05:00 AM Lab Results Component Value Date/Time CA 8.4 (L) 01/26/2018 05:00 AM PO4 2.2 01/03/2018 05:10 AM ALBUMIN 2.4 (L) 01/25/2018 10:57 AM TOTPROT 5.6 (L) 01/25/2018 10:57 AM ALKPHOS 134 (H) 01/25/2018 10:57 AM AST 41 (H) 01/25/2018 10:57 AM ALT 68 (H) 01/25/2018 10:57 AM TOTBILI 0.2 (L) 01/25/2018 10:57 AM GFR >60 01/26/2018 05:00 AM GFRAA >60 01/26/2018 05:00 AM Lab Results Component Value Date TRIG 254 (H) 01/13/2018 TSH Date Value Ref Range Status 01/25/2018 10.130 (H) 0.35 - 5.00 MCU/ML Final No results found for: URMALBCRRAT Glucose testing Recent Labs 01/25/18 0320 01/25/18 0655 01/25/18 1151 01/25/18 1658 01/25/18 2126 01/26/18 0337 01/26/18 0629 01/26/18 1253 GLUPOC 214* 172* 212* 292* 163* 218* 179* 229* Hemoglobin A1C Date Value Ref Range Status 12/28/2017 6.5 (H) 4.0 - 6.0 % Final Comment: The ADA recommends that most patients with type 1 and type 2 diabetes maintain an A1c level <7%. Serenity Concepcion MD [phone] * Cherri Kinney, PhD - 01/25/2018 3:20 PM CDT [id number] Pt was seen for mood screening with no family or significant others present. Pt was alert, oriented, and open/responsive to inquiry. The utility of testing was discussed and pt agreed to participate. Pt was cooperative and appeared to put forth adequate effort. Speech was WNL and thought processes were connected and logical to content of conversation. Eye contact was within social norms and non-verbal behaviors were appropriate to context. Mood and affect were congruent and slightly dysphoric, with pt becoming tearful at times. Pt reported her current mood as "pretty good" but also noted difficulty with pain control over the past few days. She reported current pain of 7/10. She reported that she has been attempting to engage with social supports to cope. Screen of anxiety symptomology was administered wiith results indicating no significant anxiety symptomology (CLAUDIA-7=3) and pt endorsed symptoms of nervousness, difficulty relaxing, and irritability or becoming easily annoyed ( when in pain) several days in the last 2 weeks. Mood screen of depressive symptomology was administered with results indicating mild depressive symptomology (PHQ-9=9) and pt endorsed symptoms of loss of interest and moving around a lot more than usual (specifically her leg shaking) nearly every day and sleep difficulties (sleeping too much), poor appetite, and difficulty concentrating several days in the last 2 weeks. Screening feedback was provided to pt and pt was open and receptive to feedback. Pt's coping strategies were reinforced and reviewed and I encouraged pt to practice coping skills such as relaxed breathing as needed and to engage in pleasant, relaxing activities as able. Pt was provided psychoeducation related to pain, and distraction techniques were discussed. Further, pt was engaged in discussion of values-driven activities, and was receptive to this discussion. Pts progress, utilization of coping skills, and goals for rehab therapies were supported. Will continue to follow and assess mood, pain management, and coping. Diagnosis: F33.1 Major depressive disorder, recurrent, moderate; F41.9 Anxiety ( pt currently within normal limits on screeners) Recommendations: 1. Pt may benefit from reminders or cues to use coping strategies such as relaxed breathing or visualization. 2. Pt would likely benefit from re-engaging with outpatient psychotherapy following discharge, and she is interested in this service. Will return to discuss with pt how to establish these services. Valerie Young M.A. Horse Trainer Pager [phone] ATTESTATION: I discussed this session and pt's care with the graphics intern and agree with her note and recs as amended (in blue) above. We will continue to follow prn until [facility] d/c. Warren Kinney, PhD, ABPP * Indy Isabel MD - 01/25/2018 2:53 PM CDT Formatting of this note may be different from the original. Infectious Diseases Progress Note Today's Date: 01/25/2018 Admission Date: 01/14/2018 Assessment: Low grade fever 01/21-improved/resolved- source uncertain - Eschar of wound w/fat necrosis, ongoing sweats, no other new s/s -01/21 UA- 2-10 WBC, no culture -01/21 BC neg -01/21 KUB- -01/24- plastic eval of wounds- no surgical intervention given lyphedematous tissue, wound team, ongoing areas of dehiscence/eschar Transaminitis-improved 01/24 - LFT elevated 104/97 01/25 LFT improved 41/68 # GBS bacteremia w sepsis- source suspected left hip wound, less likely pna - Fever and leukocytosis began 12/20/17 - 12/21 L lower lobe infiltrate - read as atelectasis - 12/20 C. diff negative - 12/23 Bcx / set group B streptococcus; source seems most likely intra-pelvic; 12/24 bcx negative - CT pelvis 12/25: "Ill-defined fluid and air along the anterior margin of the surgical site away from the drain tip. However, no discrete drainable fluid collection is noted. - OR 01/10 for wound eval - no sign of infection - posterior wound starting to granulate, W[place] started # Candiduria - 12/21/17 UA: wbc 2-10, negative nitrite, 1+ luukocytes, Culture > 100,000 Liliana sp - Sensitivities not done, unsure if fluconazole susceptible; repeat urine culture negative 12/28 but improved with micafungin so is suspicion for fluconazole resistance - Treating given indwelling melchor and inability to remove melchor d/t recent bladder repair - ? Candidal intertrigo - groin/mons - Cath change in OR 01/10 - no bladder leak at that time - Micafungin course completed 01/16 # s/p hemipelvectomy for Chondrosarcoma - 11/25/17 MRI: a large lesion throughout the entire left hemipelvis that appeared to be centered within the ilium - 11/30/17 open biopsy: Chondrosarcoma - 11/26/17 CT: few small pulmonary nodules. will resect the masses in the chest later - admission 12/13/17- - 12/14/17: left hemipelvectomy, jamil sacrectomy. Complicated with bladder and urethral injury. Added Cystoscopy with left ureteral stent insertion, Bladder neck repair, Urethroplasty and repair of urethral injury, Vaginal closure. - Stool saturating wound. Diverting colostomy done 12/30. - 01/06 CT: left hemipelvectomy, edema w/in the operative bed- not changed except sl more gas, more focal gas/fluid alonger anterior/inferior and superior surgical margins. #night sweats - per pt worse past week - TSH high, T4 ok, on replacement, no hypotension /lyte disturbance suggestive of adrenal disease, no menses since probably 2012 per pt - stopped HRT just before surg*; getting intermittent steroid, no s/s alternate new infection # DVT - 11/30/17 IVC filter for DVT within the external iliac vein # Obese # HTN # DM # 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 # Depression # Generalized pain # abx allergy - allergic history to Cephalexin 'years ago' with skin rash and hot flash - tolerated Penicillin when she had dental caries Recommendations: Discussed w Rehab and wound team. Her temp curve is better. WBC normalized, BC neg. We acknowledge that she has poorly healing wound. I discussed w wound, although eschar and dehisced wounds, no overall concern for infection except left mons.. There was some erythema and pain over left mons/pubis yesterday but this has waxed and waned and seems somewhat edema dependent as to my exam today the previously noted erythema is much improved. Eschar is stable We have reached the planned course of atbx post op and given above, I think it is reasonable to dc atbx and observe closely for s/s infection 1. DC Ertapenem 2. Monitor temps and periodic WBC- If recurrent high grade fever, repeat BC, obtain UA and urine culture and restart atbx empirically w vanco and Meropenem while bailey underway. Would also consider repeat CT of abd/pelvis 3. Ongoing close observation by wound/plastc Complexity of medical decision making is high b/c of the multi-system nature of the infectious disease process and concerns about the complexity of the patient illness including the sensitivity of the organisms being treated, the potential for drug toxicity and interactions, concerns about immunologic function, and interplay of other issues. Interval History Afebrile T max 99. HR improved. She looks more comfortable. No cough sob, cp n/v. Stool soft in ostomy. Reports some pain in "left hip" this started after she was moved over weekend without draw sheet. Discussed w wound- Labs; WBC nl LFT improved Cultures neg Antimicrobial Start date End date Erythromycin 12/13 Neomycin 12/13 12/13 Polymyxin B 12/14 12/14 Ertapenem 01/10 active Gentamycin 12/14 12/15 Clindamycin 12/14 12/22 Pip/tazo 12/22 01/10 Fluconazole 12/22 12/30 Vancomycin 12/23 12/27 Micafungin 12/30 01/16 Estimated Creatinine Clearance: 106.6 mL/min (based on SCr of 0.55 mg/dL). Medications Scheduled Meds: aspirin chewable tablet 81 mg 81 mg Oral QDAY buPROPion (WELLBUTRIN) tablet 100 mg 100 mg Oral TID busPIRone (BUSPAR) tablet 30 mg 30 mg Oral BID collagenase (SANTYL) topical ointment Topical QDAY docusate (COLACE) capsule 100 mg 100 mg Oral BID ertapenem (INVANZ) IVP 1 g 1 g Intravenous Q24H* ferrous sulfate (FEOSOL, FEROSUL) tablet 325 mg 325 mg Oral TID w/ meals gabapentin (NEURONTIN) capsule 800 mg 800 mg Oral QID insulin aspart U-100 (NOVOLOG FLEXPEN) injection PEN 0-14 Units 0-14 Units Subcutaneous 5 X Day insulin aspart U-100 (NOVOLOG FLEXPEN) injection PEN 12 Units 12 Units Subcutaneous TID after meals insulin aspart U-100 (NOVOLOG FLEXPEN) injection PEN 8 Units 8 Units Subcutaneous QHS insulin glargine (LANTUS SOLOSTAR, BASAGLAR) injection PEN 20 Units 20 Units Subcutaneous QHS insulin NPH (HUMULIN N KwikPen) injection PEN 30 Units 30 Units Subcutaneous QDAY(21) lactobacillus rhamnosus GG (CULTURELLE) 15 billion cell capsule 1 capsule 1 capsule Oral BID w/meals [START ON 01/26/2018] levothyroxine (SYNTHROID) tablet 200 mcg 200 mcg Oral QDAY before breakfast lidocaine (LIDODERM) 5 % topical patch 2 patch 2 patch Topical QDAY nortriptyline (PAMELOR) capsule 25 mg 25 mg Oral QHS oxyCODONE (ROXICODONE, OXY-IR) tablet 15 mg 15 mg Oral Once per day on Wed oxyCODONE SR (OXYCONTIN) tablet 10 mg 10 [address] Oral BID pantop[address]ole [address] (PROTONIX) tablet 40 mg 40 mg Oral QDAY(21) rivaroxaban (XARELTO) tablet 20 mg 20 mg Oral QDAY w/breakfast simvastatin (ZOCOR) tablet 20 mg 20 mg Oral QHS sodium chloride PF 0.9% flush 20 mL 20 mL Intravenous FLUSH TID vitamin A & D topical ointment Topical BID Continuous Infusions: PRN and Respiratory Meds:acetaminophen Q6H PRN, alum/mag hydroxide/simeth Q6H PRN, calcium carbonate Q4H PRN, milk of magnesia (CONC) Q4H PRN, ondansetron ( ZOFRAN) IV Q6H PRN, oxyCODONE Q4H PRN, pancrelipase 20,000 Units/ sodium bicarbonate 650 mg(#) PRN (Catalogue Librarian from Rx) Physical Examination Vital Signs: Last Vital Signs: 24 Hour Range BP: 117/60 (01/25 1201) Temp: 36.6 C (97.8 F) (01/25 120) Pulse: 114 (01/25 1201) Respirations: 18 PER MINUTE (01/25 120) SpO2: 93 % (01/25 1201) O2 Delivery: None (Room Air) (01/25 1201) BP: (104-122)/(55-62) Temp: [36.6 C (97.8 F)-37.7 C (99.8 F)] Pulse: [114-130] Respirations: [16 PER MINUTE-20 PER MINUTE] SpO2: [90 %-96 %] O2 Delivery: None (Room Air) General appearance: alert, oriented, Lungs: clear bilaterally Heart: Regular rhythm, tachy, with no murmur Abdomen: soft, obese, normal bowel sounds, nontender Ext: s/p left hemipelvectomy; wounds dressed - WV posteriorly; RLE no edema Mons is edematous but much less erythema (as she is laying towards right side. Stable eschar. No concern for cellulitis on exposed skin Skin: no new rashes noted Lines: PICC RUE- No erythema, Lab Review Hematology Recent Labs 01/24/18 0542 01/25/18 1057 WBC 12.1* 10.7 HGB 8.0* 9.6* HCT 24.4* 28.5* PLTCT 430* 477* Chemistry Recent Labs 01/24/18 0542 01/25/18 1057 NA 136* -- K 4.4 -- CL 100 -- CO2 29 -- BUN 16 -- CR 0.55 -- GFR >60 -- GLU 230* -- CA 8.8 -- ALBUMIN 2.4* 2.4* ALKPHOS 137* 134* AST 104* 41* ALT 97* 68* TOTBILI 0.2* 0.2* Microbiology, Radiology and other Diagnostics Review Microbiology data reviewed. Pertinent radiology reviewed Indy Isabel MD Pager [phone] * Ruth Allen MD - 01/25/2018 10:49 AM CDT Formatting of this note may be different from the original. ATTESTATION I personally performed the banuelos portions of the E/M visit, discussed case with resident and concur with resident documentation of history, physical exam, assessment, and treatment plan unless otherwise noted. Labs and VS reviewed and stable. TSH elevated, Endocrine adjusting synthroid dosing. All cultures NGTD. Cont ertapenem per ID for now. No further surgery at this time per Plastics, cont wound vac changes. Edema control difficult due to wounds, vac and location. Patient remains medically stable to participate in IRF program. Staff name: Ruth Allen MD Date: 01/25/2018 Physical Medicine & Rehabilitation Progress Note Today's Date: 01/25/2018 Admission Date: 01/14/2018 LOS: 11 days Insurance: [facility] Principal Problem: Left hip amputation status Active Problems: Chondrosarcoma (HCC) Acute blood loss as cause of postoperative anemia Depression Anxiety DM (diabetes mellitus) (HCC) 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 Chronic pain Post-op pain Bacteremia Amputated left leg (HCC) Candiduria Assessment/Plan: Beata Lema a 52 y.o.female[facility] the following issues : 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 Goals: household mobility, at wheelchair level, min-mod A Tentative discharge date: 02/02/18 Recommended therapy after discharge: home health OT/PT Recommended equipment: Slideboard and wheelchair, anticipating ramp Daily Functional Update: Transfers Device Sit to Stand Transfer: Assistive Device: Sliding Board (01/24/2018 8:30 AM) No Data Recorded Gait Device Assist Required Distance Gait: Assistive Device: IV Pole (12/01/2017 11:00 AM) No Data Recorded Gait Distance: 400 feet (12/01/2017 11:00 AM) Toileting Assist Required Equipment Toilet Transfer Toileting Assist: Total Assist (01/06/2018 1:00 PM) No Data Recorded No Data Recorded Dressing Lower Body LE Dressing Assist: Total Assist (01/21/2018 8:30 AM) Chrondrosarcoma s/p hemipelvectomy - 12/14/17: left hemipelvectomy, jamil sacrectomy >wound vac in place. Changes M/W/F by wound vac team. PO 15mg oxycodone MWF for WV changes + lidocaine into sponge during acute hospitalization - wean off IV pain meds as able >Change dressings prn with dry sterile gauze and hypafix tape >vitamin A &D for labia wound, collagenase for left lower abdomen wound healing >Per plastic surgery note 01/24 not recommending further surgical intervention at this time Post-op pain in setting of chronic pain Phantom limb pain, neuropathic pain >Tylenol, oxycontin 10mg BID and oxycodone 20mg q3h prn. Lidoderm patch prn. > nortriptyline 25mg HS > Continue gabapentin 800mg Q6h s/p diverting colostomy - Stool saturating wound. Diverting colostomy done 12/30 >wound/ostomy consulted Bladder injury, recent repair - bladder and urethral injuries during hemipelvectomy on 12/14/17 - underwent cystoscopy with left ureteral stent insertion, Bladder neck repair, Urethroplasty and repair of urethral injury, Vaginal closure >continue melchor catheter > Urology f/u after rehab discharge Chest lesions (metastases?) - 11/26/17 CT: few small pulmonary nodules. >plan is to resect the masses in the chest later >CT chest scheduled for 02/08 with f/u with CTS surgery GBS bacteremia w/ sepsis due to left hip wound - Fever and leukocytosis began 12/20/17, Bcx 1/2 positive for GBS on 12/23 -Fever 01/21 - blood cx and urine cx NGTD >Completed course of abx 01/23 ertapenem, then restarted 01/24 per ID recs > Spoke with ID, requesting CBC and LFT's today to determine if pt still needs IV abs Candiduria - Treating given indwelling melchor and inability to remove melchor d/t recent bladder repair > micafungin d/c'ed on 01/17 DVT - 11/30/17 IVC filter for DVT within the external iliac vein >cont Xarelto ABLA - Hgb 7.8 on admission to rehab - no concern for current bleed at this time >monitor labs > 01/15: Hgb 6.5, transfused 1unit pRBCs T2DM - A1c 6.5%, controlled - CAMP TENDER regimen: Metformin thousand milligrams twice a day, [id number] mg daily >Continue with Lantus 20 units QHS, novolog 12u postmeal, MDCF 5x per day >Continue NPH 30 units with nocturnal tube feeds + Novolog 8 units SQ qhs with nocturnal TFs - please hold NPH if tube feed are held and give at the start of tube feed 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 - CAMP TENDER 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 daily - TSH 2.1 this admission >continue CAMP TENDER levothyroxine >She will need repeat thyroid function tests in 6-8 weeks MDD CLAUDIA Adjustment disorder with mixed anxiety and depressed mood > continue CAMP TENDER Wellbutrin and buspar Nutrition - 01/17 albumin 2.6, Prealbumin 13.0, likely check Q7days - 01/24 albumin 2.4, Prealbumin 11.0, recheck 01/31 >Current diet: diabeticand nocturnal tube feeds - Nutren 1.5 from 2200- 0400 at 75mL/hr through [employer] protein packs per day, [id number] q4h > Case Packer And Sealer consult and d/c tube feeds once eating to meet needs > weekly prealbumin HLD: holding CAMP TENDER statin Insomnia: nortriptyline 25mg qhs Skin:There are no pressure sores currently. Bowel:ostomy Bladder:Cointinue melchor for now Mental Health:consult neuropsychology to provide support / counseling DVT Prophylaxis:Xarelto, will discharge on it Subjective No issues/events overnight. Pt lying in bed when seen this am. Pt's main complaint when seen was pain in her pelvis/labial area, wound vac change was difficult yesterday. Pt slept "ok" last night. She is working with therapies on best technique with sliding board transfers. Objective Vital Signs: Last Filed Vital Signs: 24 Hour Range BP: 105/56 (01/26 816) Temp: 37.6 C (99.7 F) (01/26 816) Pulse: 119 (01/26 816) Respirations: 18 PER MINUTE (01/26 816) SpO2: 96 % (01/26 816) O2 Delivery: None (Room Air) (01/26 816) BP: (104-124)/(55-71) Temp: [36.9 C (98.5 F)-37.7 C (99.8 F)] Pulse: [116-130] Respirations: [16 PER MINUTE-20 PER MINUTE] SpO2: [90 %-99 %] O2 Delivery: None (Room Air) Intensity Pain Scale 0-10 (Pain 1): 9 (01/25/18 0945) Vitals: 01/23/18 0652 01/24/18 0332 01/25/18 0551 Weight: 86 kg (189 lb 9.5 oz) 99.4 kg (219 lb 2.2 oz) 101 kg (222 lb 10.6 oz) Intake/Output Summary: (Last 24 hours) Intake/Output Summary (Last 24 hours) at 01/25/18 1050 Last data filed at 01/25/18 0930 Gross per 24 hour Intake 1710 ml Output 2525 ml Net -815 ml Stool Occurrence: 1 Oral Diet Order: Diabetic [id number] Kcal/day (60 g Carb/meal, 30 g Carb/HS snack ) Last BM Date: 01/25/18 Lab: Results for orders placed or performed during the hospital encounter of (from the past 24 hour(s)) POC GLUCOSE Collection Time: 01/24/18 11:51 AM # # Low-High Glucose, POC 202 (H) 70 - 100 MG/DL POC GLUCOSE Collection Time: 01/24/18 4:54 PM # # Low-High Glucose, POC 147 (H) 70 - 100 MG/DL POC GLUCOSE Collection Time: 01/24/18 9:01 PM # # Low-High Glucose, POC 150 (H) 70 - 100 MG/DL POC GLUCOSE Collection Time: 01/25/18 3:20 AM # # Low-High Glucose, POC 214 (H) 70 - 100 MG/DL TSH WITH FREE T4 REFLEX Collection Time: 01/25/18 5:46 AM # # Low-High TSH 10.130 (H) 0.35 - 5.00 MCU/ML FREE T4-FREE THYROXINE Collection Time: 01/25/18 5:46 AM # # Low-High T4-Free 0.8 0.6 - 1.6 NG/DL POC GLUCOSE Collection Time: 01/25/18 6:55 AM # # Low-High Glucose, POC 172 (H) 70 - 100 MG/DL Scheduled Meds: aspirin chewable tablet 81 mg 81 mg Oral QDAY buPROPion (WELLBUTRIN) tablet 100 mg 100 mg Oral TID busPIRone (BUSPAR) tablet 30 mg 30 mg Oral BID collagenase (SANTYL) topical ointment Topical QDAY docusate (COLACE) capsule 100 mg 100 mg Oral BID ertapenem (INVANZ) IVP 1 g 1 g Intravenous Q24H* ferrous sulfate (FEOSOL, FEROSUL) tablet 325 mg 325 mg Oral TID w/ meals gabapentin (NEURONTIN) capsule 800 mg 800 mg Oral QID insulin aspart U-100 (NOVOLOG FLEXPEN) injection PEN 0-14 Units 0-14 Units Subcutaneous 5 X Day insulin aspart U-100 (NOVOLOG FLEXPEN) injection PEN 12 Units 12 Units Subcutaneous TID after meals insulin aspart U-100 (NOVOLOG FLEXPEN) injection PEN 8 Units 8 Units Subcutaneous QHS insulin glargine (LANTUS SOLOSTAR, BASAGLAR) injection PEN 20 Units 20 Units Subcutaneous QHS insulin NPH (HUMULIN N KwikPen) injection PEN 30 Units 30 Units Subcutaneous QDAY(21) lactobacillus rhamnosus GG (CULTURELLE) 15 billion cell capsule 1 capsule 1 capsule Oral BID w/meals [START ON 01/26/2018] levothyroxine (SYNTHROID) tablet 200 mcg 200 mcg Oral QDAY before breakfast lidocaine (LIDODERM) 5 % topical patch 2 patch 2 patch Topical QDAY nortriptyline (PAMELOR) capsule 25 mg 25 mg Oral QHS oxyCODONE (ROXICODONE, OXY-IR) tablet 15 mg 15 mg Oral Once per day on Wed oxyCODONE SR (OXYCONTIN) tablet 10 mg 10 mg Oral BID pantoprazole DR (PROTONIX) tablet 40 mg 40 mg Oral QDAY(21) rivaroxaban (XARELTO) tablet 20 mg 20 mg Oral QDAY w/breakfast simvastatin (ZOCOR) tablet 20 mg 20 mg Oral QHS sodium chloride PF 0.9% flush 20 mL 20 mL Intravenous FLUSH TID vitamin A & D topical ointment Topical BID Continuous Infusions: PRN and Respiratory Meds:acetaminophen Q6H PRN, alum/mag hydroxide/simeth Q6H PRN, calcium carbonate Q4H PRN, milk of magnesia (CONC) Q4H PRN, ondansetron ( ZOFRAN) IV Q6H PRN, oxyCODONE Q4H PRN, pancrelipase 20,000 Units/ sodium bicarbonate 650 mg(#) PRN (Catalogue Librarian from Rx) Physical Exam VS: BP 105/56 (BP Source: Arm, Left) | Pulse 119 | Temp 37.6 C (99.7 F) | Ht 160 cm (63") | Wt 101 kg (222 lb 10.6 oz) | LMP 01/14/2013 | SpO2 96% | BMI 39.44 kg/m Gen: awake, alert, NAD, corpak in place HEENT: left ear w/o erythema or drainage. CV: RRR, no murmur Pulm: CTAB, no w/r Abd: nondistended, nontender Extremities: mild edema rle, s/p hemipelvectomy on left with dressings and wound vac in place Skin: warm, dry Neuro: alert, oriented, speech fluent and clear, eomi, at least antigravity strength in remaining 3 extremities Therapy Notes & Labs Reviewed. Ravi Pride DO Pager [phone] * Serenity Concepcion MD - 01/25/2018 9:23 AM CDT Formatting of this note may be different from the original. Endocrine Progress Note Today's Date: 01/25/2018 Admission Date: 01/14/2018 LOS: 11 days Impression: Principal Problem: Left hip amputation status Active Problems: Chondrosarcoma (HCC) Acute blood loss as cause of postoperative anemia Depression Anxiety DM (diabetes mellitus) (HCC) 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 Chronic pain Post-op pain Bacteremia Amputated left leg (HCC) Candiduria Recommendations: Increase NPH to 30 units SQ qhs with nocturnal tube feeds + Novolog 8 units SQ qhs with nocturnal TFs Hold if TFs are interrupted Discontinue if TFs are stopped Lantus 20 units SQ qhs Novolog 12 units SQ TID with meals - post meal dosing Novolog MDCF Continue LT4 therapy Increase to 200mcg on 01.25.2018 due to continued elevation of TSH / low range normal FT4 Repeat TSH testing in 6 weeks On statin therapy HPI: Beata Kaiser is a 52 y.o. female. This AM, Beata notes hot and cold episodes. Tolerating diet. No hypoglycemia nor significant hyperglycemia. Notes plan to remain on nocturnal TFs at this time: On enteral feeds -- Nutren 1.5 from 10pm to 4am. 75mL per hour. Current MDI insulin regimen: NPH 28 units SQ qhs with nocturnal tube feeds + Novolog 8 units SQ qhs with nocturnal TFs Lantus 20 units SQ qhs Novolog 10 units SQ TID with meals Novolog MDCF TSH elevated on repeated meausurements over the last month s/ prior adjustment of LT4 dose. Historical data -- S/p left hemipelvectomy DM2 with stress hyperglycemia HgbA1C 6.5%. CAMP TENDER meds: Metformin + Jardiance / PCP in [place], [place] Past Medical History: Diagnosis Date Anxiety Back pain Depression DM (diabetes mellitus) (HCC) 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 Review of systems: Hot and cold flashes. No CP. No SOB. No abd pain. Medications Scheduled Meds: aspirin chewable tablet 81 mg 81 mg Oral QDAY buPROPion (WELLBUTRIN) tablet 100 mg 100 mg Oral TID busPIRone (BUSPAR) tablet 30 mg 30 mg Oral BID collagenase (SANTYL) topical ointment Topical QDAY docusate (COLACE) capsule 100 mg 100 mg Oral BID ertapenem (INVANZ) IVP 1 g 1 g Intravenous Q24H* ferrous sulfate (FEOSOL, FEROSUL) tablet 325 mg 325 mg Oral TID w/ meals gabapentin (NEURONTIN) capsule 800 mg 800 mg Oral QID insulin aspart U-100 (NOVOLOG FLEXPEN) injection PEN 0-14 Units 0-14 Units Subcutaneous 5 X Day insulin aspart U-100 (NOVOLOG FLEXPEN) injection PEN 12 Units 12 Units Subcutaneous TID after meals insulin aspart U-100 (NOVOLOG FLEXPEN) injection PEN 8 Units 8 Units Subcutaneous QHS insulin glargine (LANTUS SOLOSTAR, BASAGLAR) injection PEN 20 Units 20 Units Subcutaneous QHS insulin NPH (HUMULIN N KwikPen) injection PEN 28 Units 28 Units Subcutaneous QDAY(21) lactobacillus rhamnosus GG (CULTURELLE) 15 billion cell capsule 1 capsule 1 capsule Oral BID w/meals levothyroxine (SYNTHROID) tablet 175 mcg 175 mcg Oral QDAY before breakfast lidocaine (LIDODERM) 5 % topical patch 2 patch 2 patch Topical QDAY nortriptyline (PAMELOR) capsule 25 mg 25 mg Oral QHS oxyCODONE (ROXICODONE, OXY-IR) tablet 15 mg 15 mg Oral Once per day on Wed oxyCODONE SR (OXYCONTIN) tablet 10 mg 10 mg Oral BID pantop[address]ole DR (PROTONIX) tablet 40 mg 40 mg Oral QDAY(21) rivaroxaban (XARELTO) tablet 20 mg 20 mg Oral QDAY w/breakfast simvastatin (ZOCOR) tablet 20 mg 20 mg Oral QHS sodium chloride PF 0.9% flush 20 mL 20 mL Intravenous FLUSH TID vitamin A & D topical ointment Topical BID Continuous Infusions: PRN and Respiratory Meds:acetaminophen Q6H PRN, alum/mag hydroxide/simeth Q6H PRN, calcium carbonate Q4H PRN, milk of magnesia (CONC) Q4H PRN, ondansetron ( ZOFRAN) IV Q6H PRN, oxyCODONE Q4H PRN, pancrelipase 20,000 Units/ sodium bicarbonate 650 mg(#) PRN (Catalogue Librarian from Rx) Objective Vital Signs: Last Filed Vital Signs: 24 Hour Range BP: 105/56 (01/26 816) Temp: 37.6 C (99.7 F) (01/26 816) Pulse: 119 (01/26 816) Respirations: 18 PER MINUTE (01/26 816) SpO2: 96 % (01/26 816) O2 Delivery: None (Room Air) (01/26 816) BP: (104-124)/(55-71) Temp: [36.9 C (98.5 F)-37.7 C (99.8 F)] Pulse: [116-130] Respirations: [16 PER MINUTE-20 PER MINUTE] SpO2: [90 %-99 %] O2 Delivery: None (Room Air) Intensity Pain Scale 0-10 (Pain 1): 5 (01/25/18 0534) Vitals: 01/23/18 0652 01/24/18 0332 01/25/18 0551 Weight: 86 kg (189 lb 9.5 oz) 99.4 kg (219 lb 2.2 oz) 101 kg (222 lb 10.6 oz) Physical Exam Gen-A&O x 3 in NAD HEENT-NGT in place CV-RRR s/ m/r/g Pulm-CTA B in anterior torres Abd-obese, soft, nt Ext-s/p left hemipelvectomy Affect-approriate Lab Review Comprehensive Metabolic Profile Lab Results Component Value Date/Time NA 136 (L) 01/24/2018 05:42 AM K 4.4 01/24/2018 05:42 AM CL 100 01/24/2018 05:42 AM CO2 29 01/24/2018 05:42 AM GAP 7 01/24/2018 05:42 AM BUN 16 01/24/2018 05:42 AM CR 0.55 01/24/2018 05:42 AM GLU 230 (H) 01/24/2018 05:42 AM Lab Results Component Value Date/Time CA 8.8 01/24/2018 05:42 AM PO4 2.2 01/03/2018 05:10 AM ALBUMIN 2.4 (L) 01/24/2018 05:42 AM TOTPROT 5.7 (L) 01/24/2018 05:42 AM ALKPHOS 137 (H) 01/24/2018 05:42 AM AST 104 (H) 01/24/2018 05:42 AM ALT 97 (H) 01/24/2018 05:42 AM TOTBILI 0.2 (L) 01/24/2018 05:42 AM GFR >60 01/24/2018 05:42 AM GFRAA >60 01/24/2018 05:42 AM Lab Results Component Value Date TRIG 254 (H) 01/13/2018 TSH Date Value Ref Range Status 01/25/2018 10.130 (H) 0.35 - 5.00 MCU/ML Final No results found for: URMALBCRRAT Glucose testing Recent Labs 01/23/18 2053 01/24/18 0332 01/24/18 0651 01/24/18 1151 01/24/18 1654 01/24/18 2101 01/25/18 0320 01/25/18 0655 GLUPOC 211* 191* 175* 202* 147* 150* 214* 172* Hemoglobin A1C Date Value Ref Range Status 12/28/2017 6.5 (H) 4.0 - 6.0 % Final Comment: The ADA recommends that most patients with type 1 and type 2 diabetes maintain an A1c level <7%. Serenity Concepcion MD [phone] * Darlene Garcia RN - 01/24/2018 7:00 PM CDT Pt's pulse and temp have been rising slowly this shift. Pt is also showing more redness and swelling in her perineal area, and complains of increased pain around left labial area. Dr. Plaza notified. * Darlene Garcia RN - 01/24/2018 5:44 PM CDT I have reviewed the notes, assessment, and/or procedures performed by Sangita Valdez and concur with her/his documentation unless otherwise noted. * Indy Isabel MD - 01/24/2018 4:26 PM CDT Formatting of this note may be different from the original. Infectious Diseases Progress Note Today's Date: 01/24/2018 Admission Date: 01/14/2018 Assessment: Low grade fever 01/21-improved - Eschar of wound w/fat necrosis, ongoing sweats, no other new s/s -01/21 UA- 2-10 WBC, no culture -01/21 BC neg -01/21 KUB- -01/24- plastic eval of wounds- no surgical intervention given lyphedematous tissue, wound team, ongoing areas of dehiscence/eschar Transaminitis 01/24 - LFT elevated # GBS bacteremia w sepsis- source suspected left hip wound, less likely pna - Fever and leukocytosis began 12/20/17 - 4/3 L lower lobe infiltrate - read as atelectasis - 12/20 C. diff negative - 12/23 Bcx 09/21 set group B streptococcus; source seems most likely intra-pelvic; 12/24 bcx negative - CT pelvis 12/25: "Ill-defined fluid and air along the anterior margin of the surgical site away from the drain tip. However, no discrete drainable fluid collection is noted. - OR 01/10 for wound eval - no sign of infection - posterior wound starting to granulate, WV started # Candiduria - 12/21/17 UA: wbc 2-10, negative nitrite, 1+ luukocytes, Culture > 100,000 Liliana sp - Sensitivities not done, unsure if fluconazole susceptible; repeat urine culture negative 12/28 but improved with micafungin so is suspicion for fluconazole resistance - Treating given indwelling melchor and inability to remove melchor d/t recent bladder repair - ? Candidal intertrigo - groin/mons - Cath change in OR 01/10 - no bladder leak at that time - Micafungin course completed 01/16 # s/p hemipelvectomy for Chondrosarcoma - 11/25/17 MRI: a large lesion throughout the entire left hemipelvis that appeared to be centered within the ilium - 11/30/17 open biopsy: Chondrosarcoma - 11/26/17 CT: few small pulmonary nodules. will resect the masses in the chest later - admission 12/13/17- - 12/14/17: left hemipelvectomy, jamil sacrectomy. Complicated with bladder and urethral injury. Added Cystoscopy with left ureteral stent insertion, Bladder neck repair, Urethroplasty and repair of urethral injury, Vaginal closure. - Stool saturating wound. Diverting colostomy done 12/30. - 01/06 CT: left hemipelvectomy, edema w/in the operative bed- not changed except sl more gas, more focal gas/fluid alonger anterior/inferior and superior surgical margins. #night sweats - per pt worse past week - TSH high, T4 ok, on replacement, no hypotension /lyte disturbance suggestive of adrenal disease, no menses since probably 2012 per pt - stopped HRT just before surg*; getting intermittent steroid, no s/s alternate new infection # DVT - 11/30/17 IVC filter for DVT within the external iliac vein # Obese # HTN # DM # 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 # Depression # Generalized pain # abx allergy - allergic history to Cephalexin 'years ago' with skin rash and hot flash - tolerated Penicillin when she had dental caries Recommendations: 1. Cont ertapenem 1 gram daily for now 2. Repeat LFT daily to determine trend- if ongoing elevation need to be concerned w medication SE assoc w Ertapenem 3. Monitor temps- has been afebrile but reporting some hot/cold episodes. If recurrent high grade fever, repeat BC, obtain urine culture and consider broadening atbx empirically w vanco and Meropenem while bailey underway. Would also consider repeat CT of abd/pelvis and ongoing discussion w plastic unless alternative source such as line infection identified. 4. FU BC 5. Monitor for abx toxicity 6. Ongoing close observation by wound/plastc Complexity of medical decision making is high b/c of the multi-system nature of the infectious disease process and concerns about the complexity of the patient illness including the sensitivity of the organisms being treated, the potential for drug toxicity and interactions, concerns about immunologic function, and interplay of other issues. Interval History Afebrile over last 24hr Reports some hot/cold episodes Reports pain assoc w vac change today. Reviewed wound notes- difficulty w maintaining seal w vac and now using 2 vacs. Still w sig edema and vac drainage. Still w dehiscence at wound edges. Dr Calhoun reviewed today- no surgical intervention Stool is soft and formed per ostomy, she denies cough or sob Reports she is eating. No abd pain Reports pain to left of vulvar area Labs; WBC overall stable, LFT up,Cr stable BC neg Antimicrobial Start date End date Erythromycin 12/13 Neomycin 12/13 12/13 Polymyxin B 12/14 12/14 Ertapenem 01/10 active Gentamycin 12/14 12/15 Clindamycin 12/14 12/22 Pip/tazo 12/22 01/10 Fluconazole 12/22 12/30 Vancomycin 12/23 12/27 Micafungin 12/30 01/16 Estimated Creatinine Clearance: 105.7 mL/min (based on SCr of 0.55 mg/dL). Medications Scheduled Meds: aspirin chewable tablet 81 mg 81 mg Oral QDAY buPROPion (WELLBUTRIN) tablet 100 mg 100 mg Oral TID busPIRone (BUSPAR) tablet 30 mg 30 mg Oral BID collagenase (SANTYL) topical ointment Topical QDAY docusate (COLACE) capsule 100 mg 100 mg Oral BID fentaNYL citrate PF (SUBLIMAZE) injection 25 mcg 25 mcg Intravenous ONCE ferrous sulfate (FEOSOL, FEROSUL) tablet 325 mg 325 mg Oral TID w/ meals gabapentin (NEURONTIN) capsule 800 mg 800 mg Oral QID insulin aspart U-100 (NOVOLOG FLEXPEN) injection PEN 0-14 Units 0-14 Units Subcutaneous 5 X Day insulin aspart U-100 (NOVOLOG FLEXPEN) injection PEN 12 Units 12 Units Subcutaneous TID after meals insulin aspart U-100 (NOVOLOG FLEXPEN) injection PEN 8 Units 8 Units Subcutaneous QHS insulin glargine (LANTUS SOLOSTAR, BASAGLAR) injection PEN 20 Units 20 Units Subcutaneous QHS insulin NPH (HUMULIN N KwikPen) injection PEN 28 Units 28 Units Subcutaneous QDAY(21) lactobacillus rhamnosus GG (CULTURELLE) 15 billion cell capsule 1 capsule 1 capsule Oral BID w/meals levothyroxine (SYNTHROID) tablet 175 mcg 175 mcg Oral QDAY before breakfast lidocaine (LIDODERM) 5 % topical patch 2 patch 2 patch Topical QDAY nortriptyline (PAMELOR) capsule 25 mg 25 mg Oral QHS oxyCODONE (ROXICODONE, OXY-IR) tablet 15 mg 15 mg Oral Once per day on Wed oxyCODONE SR (OXYCONTIN) tablet 10 mg 10 [address] Oral BID pantop[address]ole DR (PROTONIX) tablet 40 mg 40 mg Oral QDAY(21) rivaroxaban (XARELTO) tablet 20 mg 20 mg Oral QDAY w/breakfast simvastatin (ZOCOR) tablet 20 mg 20 mg Oral QHS sodium chloride PF 0.9% flush 20 mL 20 mL Intravenous FLUSH TID vitamin A & D topical ointment Topical BID Continuous Infusions: PRN and Respiratory Meds:acetaminophen Q6H PRN, alum/mag hydroxide/simeth Q6H PRN, calcium carbonate Q4H PRN, milk of magnesia (CONC) Q4H PRN, ondansetron ( ZOFRAN) IV Q6H PRN, oxyCODONE Q4H PRN, pancrelipase 20,000 Units/ sodium bicarbonate 650 mg(#) PRN (Catalogue Librarian from Rx) Physical Examination Vital Signs: Last Vital Signs: 24 Hour Range BP: 124/71 (01/24 1400) Temp: 36.9 C (98.5 F) (01/24 1400) Pulse: 122 (01/24 1400) Respirations: 18 PER MINUTE (01/24 1400) SpO2: 99 % (01/24 1400) O2 Delivery: None (Room Air) (01/24 1400) BP: (110-124)/(54-71) Temp: [36.6 C (97.9 F)-37.6 C (99.7 F)] Pulse: [104-126] Respirations: [18 PER MINUTE-20 PER MINUTE] SpO2: [93 %-99 %] O2 Delivery: None (Room Air) General appearance: alert, oriented, resting in bed, Lungs: clear bilaterally Heart: Regular rhythm, tachy, with no murmur Abdomen: soft, obese, normal bowel sounds, nontender Ext: s/p left hemipelvectomy; wounds dressed - WV posteriorly; RLE no edema Skin: no new rashes noted Lines: PICC RUE- No erythema, Lab Review Hematology Recent Labs 01/24/18 0542 WBC 12.1* HGB 8.0* HCT 24.4* PLTCT 430* Chemistry Recent Labs 01/24/18 0542 NA 136* K 4.4 CL 100 CO2 29 BUN 16 CR 0.55 GFR >60 GLU 230* CA 8.8 ALBUMIN 2.4* ALKPHOS 137* AST 104* ALT 97* TOTBILI 0.2* Microbiology, Radiology and other Diagnostics Review Microbiology data reviewed. Pertinent radiology reviewed Indy Isabel MD Pager [phone] * Nneka Garsia RN - 01/24/2018 3:47 PM CDT Formatting of this note may be different from the original. Wound Ostomy Note NAME:Beata Kaiser :1965 AGE: 52 y.o. ADMISSION DATE: 01/14/2018 DAYS ADMITTED: LOS: 10 days Reason for Consult/Visit: wound VAC Assessment/Plan: Principal Problem: Left hip amputation status Active Problems: Chondrosarcoma (HCC) Acute blood loss as cause of postoperative anemia Depression Anxiety DM (diabetes mellitus) (HCC) 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 Chronic pain Post-op pain Bacteremia Amputated left leg (HCC) Candiduria Wounds (NOT for Pressure Injuries) 11/30/17 08 Left Buttocks Surgical Incision (Active) 11/30/17 0853 Buttocks Wound Orientation: Left Wound Type: Surgical Incision Wound Type:: Wound Description (Comments): Carlos Manuel Rosales Drain, Sutures, xeroform, 4x4's, and tegaderm. Wound Image 01/21/2018 12:15 PM Agree With My Assessment? Yes 01/08/2018 9:36 PM Wound Base Assessment Eschar;Moist 01/24/2018 3:00 PM Surrounding Skin Assessment Induration;Erythema 01/24/2018 3:00 PM Wound Site Closure Ceci 01/24/2018 3:00 PM Wound Drainage Amount Small 01/24/2018 3:00 PM Wound Drainage Description Yellow;Serous 01/24/2018 3:00 PM Wound Dressing Status Changed 01/24/2018 3:00 PM Wound Dressing and / or Treatment Abdominal Pad;Aquacel AG 01/24/2018 3:00 PM Wound Length (cm) (Wound Team Only) 19 cm 01/24/2018 3:00 PM Wound Width (cm) (Wound Team Only) 5 cm 01/24/2018 3:00 PM Wound Depth (cm) (Wound Team Only) 0.1 01/24/2018 3:00 PM Wound Volume (cm^3) (Wound Team Only) 9.5 cm^3 01/24/2018 3:00 PM Wound Healing % (Wound Team Only) 9.52 01/24/2018 3:00 PM Number of days: 55 Wounds (NOT for Pressure Injuries) 12/14/17 1748 Left Abdomen Surgical Incision (Active) 12/14/17 1748 Abdomen Wound Orientation: Left Wound Type: Surgical Incision Wound Type:: Wound Description (Comments): SUTURES, CECI, XEROFORM, 4X4'S, ABDOMINAL PADS , TEGADERM, HYPA FIX TAPE Wound Image 01/17/2018 10:00 AM Agree With My Assessment? Except 12/30/2017 2:45 PM Wound Base Assessment Moist;Eschar;Slough 01/24/2018 3:00 PM Surrounding Skin Assessment Intact;Induration;Erythema 01/24/2018 3:00 PM Wound Site Closure None 01/24/2018 3:00 PM Wound Drainage Amount Scant 01/24/2018 3:00 PM Wound Drainage Description Yellow;Serous 01/24/2018 3:00 PM Wound Dressing Status Changed 01/24/2018 3:00 PM Wound Dressing and / or Treatment Collagenase;Abdominal Pad;Hypafix Tape 2017 3:00 PM Wound Length (cm) (Wound Team Only) 20 cm 01/24/2018 3:00 PM Wound Width (cm) (Wound Team Only) 4 cm 01/24/2018 3:00 PM Wound Depth (cm) (Wound Team Only) 0.1 01/24/2018 3:00 PM Wound Volume (cm^3) (Wound Team Only) 8 cm^3 01/24/2018 3:00 PM Wound Healing % (Wound Team Only) 4.76 01/24/2018 3:00 PM Number of days: 41 Wounds (NOT for Pressure Injuries) 12/20/17 1530 Right;Lower Abdomen Moisture Associated Skin Damage (Active) 12/20/17 1530 Abdomen Wound Orientation: Right;Lower Wound Type: Moisture Associated Skin Damage Wound Type:: Wound Description (Comments): Agree With My Assessment? Yes 01/06/2018 8:00 PM Wound Base Assessment Dressing intact, base not assessed 01/23/2018 8:25 PM Surrounding Skin Assessment Dry;Intact 01/23/2018 6:00 PM Wound Site Closure None 01/23/2018 6:00 PM Wound Drainage Amount None 01/18/2018 8:10 AM Wound Drainage Description Serous 01/14/2018 9:08 AM Wound Dressing Status Intact 01/23/2018 8:25 PM Wound Dressing and / or Treatment Interdry AG Textile 01/23/2018 8:25 PM Number of days: 35 Wounds (NOT for Pressure Injuries) 12/23/17 1345 Left Labia (Active) 12/23/17 1345 Labia Wound Orientation: Left Wound Type: Wound Type:: Wound Description (Comments): Agree With My Assessment? Yes 01/07/2018 9:55 PM Wound Base Assessment Moist;Slough;Gallardo 01/24/2018 3:00 PM Surrounding Skin Assessment Erythema;Induration;Edema 01/24/2018 3:00 PM Wound Site Closure Open to Air 01/24/2018 3:00 PM Wound Drainage Amount Scant 01/24/2018 3:00 PM Wound Drainage Description Serous 01/24/2018 3:00 PM Wound Dressing Status Changed 01/24/2018 3:00 PM Wound Dressing and / or Treatment A & D Ointment 01/24/2018 3:00 PM Wound Length (cm) (Wound Team Only) 2 cm 01/24/2018 3:00 PM Wound Width (cm) (Wound Team Only) 1 cm 01/24/2018 3:00 PM Wound Depth (cm) (Wound Team Only) 0.1 01/24/2018 3:00 PM Wound Volume (cm^3) (Wound Team Only) 0.2 cm^3 01/24/2018 3:00 PM Wound Healing % (Wound Team Only) 89.33 01/24/2018 3:00 PM Number of days: 32 Wounds (NOT for Pressure Injuries) 12/30/17 1002 Left;Anterior Surgical Incision stump (Active) 12/30/17 1002 Wound Orientation: Left;Anterior Wound Type: Surgical Incision Wound Type:: stump Wound Description (Comments): Suture, ceci, telfa and iodine, 4x4, and tegaderm Wound Image 01/21/2018 12:15 PM Agree With My Assessment? Yes 01/06/2018 8:00 PM Wound Base Assessment Eschar;Dry 01/24/2018 3:00 PM Surrounding Skin Assessment Induration 01/24/2018 3:00 PM Wound Site Closure None 01/24/2018 3:00 PM Wound Drainage Amount None 01/24/2018 3:00 PM Wound Drainage Description Brown;Serosanguineous 01/12/2018 10:55 PM Wound Dressing Status Changed 01/24/2018 3:00 PM Wound Dressing and / or Treatment Abdominal Pad;Aquacel AG;Hypafix Tape 2017 3:00 PM Wound Length (cm) (Wound Team Only) 25 cm 01/24/2018 3:00 PM Wound Width (cm) (Wound Team Only) 16 cm 01/24/2018 3:00 PM Wound Depth (cm) (Wound Team Only) 0.1 01/24/2018 3:00 PM Wound Volume (cm^3) (Wound Team Only) 40 cm^3 01/24/2018 3:00 PM Wound Healing % (Wound Team Only) -17.1 01/24/2018 3:00 PM Number of days: 25 Wounds (NOT for Pressure Injuries) 01/10/18 1100 Hip Surgical Incision (Active) 01/10/18 1100 Hip Wound Orientation: Wound Type: Surgical Incision Wound Type:: Wound Description (Comments): XEROFORM, 4X4S, HYPAFIX, WOUND VAC Wound Image 01/21/2018 12:15 PM Agree With My Assessment? Yes 01/10/2018 12:15 PM Wound Base Assessment Slough;Granulation;Gallardo;Yellow 01/24/2018 3:00 PM Surrounding Skin Assessment Red;Erythema 01/24/2018 3:00 PM Wound Site Closure Wound Adhesive Bandage 01/24/2018 3:00 PM Wound Drainage Amount Copious 01/24/2018 3:00 PM Wound Drainage Description Serosanguineous 01/24/2018 3:00 PM Wound Dressing Status Changed 01/24/2018 3:00 PM Wound Dressing and / or Treatment VAC @ -125, x 2 machines mm/Hg;VAC sponge - black;VAC tx: Continuous 01/24/2018 3:00 PM Wound Length (cm) (Wound Team Only) 8 cm 01/24/2018 3:00 PM Wound Width (cm) (Wound Team Only) 18 cm 01/24/2018 3:00 PM Wound Depth (cm) (Wound Team Only) 27 01/24/2018 3:00 PM Wound Volume (cm^3) (Wound Team Only) 3888 cm^3 01/24/2018 3:00 PM Wound Healing % (Wound Team Only) -66.15 01/24/2018 3:00 PM Tunneling in CM (Wound Team Only) 15 cm 01/24/2018 3:00 PM Tunnelling Location 3 01/24/2018 3:00 PM Number of days: 14 Colostomy 12/30/17 1209 Right (Active) 12/30/17 1209 Right Agree With My Assessment? Except 01/24/2018 4:00 AM Stoma Assessment Red;[place] 01/23/2018 8:46 PM Drainage Description Brown 01/23/2018 8:46 PM Peristomal Skin Assessment Dry;Intact 01/23/2018 8:46 PM Dressing Status Bag Changed 01/24/2018 4:00 AM Drain Output (ml) 0 ml 01/21/2018 3:45 AM Pt seen today with plastic surgery team. ( please see their note). Procedure: Negative Wound Therapy Dressing Change Anesthesia Type: Not Applicable or None Provider(s) and Role: Rn Negative Wound Pressure Device Type: KCI VAC Contact layer: no Wound dimension (length x width x depth, tunneling, undermining): 25.0 cm x 16.0cm depth at about 9:00 when pt is side lying. Depth is 27.0cm +. Hard to get an actual depth, q-tip is not long enough. Area at 3:00 is the same thing. Cannot get measuring device far enough it to measure. Number of sponges in the wound prior to dressing change: 3 Number of sponges removed from the wound: 3 Type of sponge: Black foam Number of sponges placed in the wound: 4 Nneka Garsia RN Very difficult to get a seal on the wound vac today. Hooked up additional wound vac machine. Pt now has 2 wound vac machines going at -125mmgH. Seal can be intermittent at times, with one machine showing good seal and the other one leaking. Spoke to Ortho resident about questionable seal. Entire incision is covered with a dressing and hypafix tape. Called and spoke to Rn at 1550 and she stated currently both wound vacs are working. Unsure how long they will continue to work if patient has therapy etc. Will plan for next wound vac change on 01/26/18. Still concerns abotu the incision wound continues to want to dehisce at edges. Thank you Opal Garsia RN, BSN Wound /Ostomy Team Pager [phone] After Hours Wound/Ostomy team pager [phone] * Darlene Garcia, SANJAY - 01/24/2018 3:40 PM CDT Pt complained of 9 out of 10 pain in between the left labia and outer edge of hip. Dressing clean dry and intact. Pt reports that this pain has been increasing over the past 24 hrs. Oxycodone given at 1400, but has not helped. Dr Pride notified and order received. When went to give pt the one time pain med she was sleeping. Later pt stated that she wanted to wait on one time order of pain med. * Leia Zimmerman - 01/24/2018 1:31 PM CDT CLINICAL NUTRITION Clinical Nutrition Follow-Up Summary Nutrition Assessment of Patient: Malnutrition Assessment: Adequately nourished prior to admission Current Oral Intake: Adequate Estimated Calorie Needs: 1660 (30kcal/kg of dw 55kg) Estimated Protein Needs: 100-120 (1.5-2.2g/kg of dw 55kg) Oral Diet Order: Diabetic 9393-5887 Kcal/day (60 g Carb/meal, 30 g Carb/HS snack ) Oral Supplement: Boost Glucose Control, BID 5-day PO intake Average: Intake (calories) Daily Average : 1548 kilocalories (93% of low end estimated needs) Intake (protein) Daily Average : 72 grams (72% of low range estimated needs) Current EN Order: Nutren 1.5 @ 75ml/hr x's 6 hrs from 9563-7225, 3 ProSource/ day (At goal will provide: 855kcal (52% est needs), 76 g protein (63-76% est needs), and 345ml free water/day). She is also getting 30ml water flush Q 4 hrs. 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 PMH of DM (A1c 6.5) and depression. Pt with stool soilage issues prohibiting wound healing had colostomy 12/30. TPN was added to enhance nutrition followed by supplemental EN. I&D with wound vac 01/10. Pt weight decreased ~12% initially s/p amputation (pre-surgery wt 231#). However, trend of weights have been fluctuating throughout admits. Current rehab weight of 219 # is consistent with rehab admit weight. Current Net I/O total since of -40.4L and no significant edema. Pt reports improved appetite and PO intake, with use of Boost GC drinks. She continues to report dislike for some menu foods, but overall is eating adequately based on past 5 days (calorie count above). Nocturnal feeds continue to meet goal of 50% of estimated needs, with continued infusion 2/2 increased needs and pt with low pre-albumin of 11.0 (per MD note). Pt with c/o of indigestion last night at start of TF. May be over satiated at this point. MDCF, Novolog, Lantus, Humulin on board; adjusted with TF regimen ( BG POC 202). LFTs drawn are elevated. No gi distress. Recommendation: Pt okay to DC off of nocturnal TF 2/2 PO intake of 93% kcal, 72% protein x 5 day average. Consider trial of 1-2 days off of EN feeds before pulling Corpak 2/2 pt with increased needs. Continue calorie count. Continue Diabetic diet and GC Boost BID to promote adequate protein intake. Encourage pt to consume 1-2 protein sources per meal. Intervention / Plan: Monitor EN and calorie count Monitor wt, labs, skin, gi, meds, fluids Nutrition Diagnosis: Nutrition Diagnosis: Increased nutrient needs, specify: Etiology: protein: demand for wound healing Signs & Symptoms: s/p hemipelvectomy Goals: Transition from enteral to oral Time Frame: Within 72 Hours Status: Partially met;Ongoing Combined routes of nutrition meeting 100% of nutritional needs Time Frame: Within 5 Days Status: Met;Ongoing PO intake to meet >85% nutritional needs Time Frame: Prior to Discharge Leia Zimmerman, RD, LD *[id number] * Lm Lindo MD - 01/24/2018 1:24 PM CDT Patient evaluated with Dr. Calhoun at wound vac change. Left hemipelvectomy site with multiple areas of breakdown along the incision line as well as along her abdomen. Very lymphadematous with copious drainage. Posterior area of incision open with significant tunneling under leg flap. Some granulation tissue present but mostly fibrinous exudate. We do not recommend any further surgical intervention at this point due to the very lymphadematous condition of the surrounding tissues. Recommend continuing conservative management at this point with dressings and wound vac. Dr. Calhoun will still follow the wound weekly. Wound team to page him directly at time of vac changes. Lm Lindo MD If questions, page please page plastic surgery "Gold" team [phone] (6AM-6PM M-F) On-call resident all other times or consult pager [phone] * Ruth Allen MD - 01/24/2018 10:58 AM CDT Formatting of this note may be different from the original. ATTESTATION I personally performed the banuelos portions of the E/M visit, discussed case with resident and concur with resident documentation of history, physical exam, assessment, and treatment plan unless otherwise noted. Labs and VS reviewed and stable. WBC mildly elevated. All cultures NGTD. Prealbumin level still low. Cont nocturnal TF. Plastics and wound vac change evals today. Will give IV fentanyl premed. Rehab going pretty well, slideboard transfers are improving. Still needs significant assistance for ADLs. Patient remains medically stable to participate in IRF program. Staff name: Ruth Allen MD Date: 01/24/2018 Physical Medicine & Rehabilitation Progress Note Today's Date: 01/24/2018 Admission Date: 01/14/2018 LOS: 10 days Insurance: [facility] Principal Problem: Left hip amputation status Active Problems: Chondrosarcoma (HCC) Acute blood loss as cause of postoperative anemia Depression Anxiety DM (diabetes mellitus) (HCC) 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 Chronic pain Post-op pain Bacteremia Amputated left leg (HCC) Candiduria Assessment/Plan: Beata Lema a 52 y.o.female[facility] the following issues : 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 Goals: household mobility, at wheelchair level, min-mod A Tentative discharge date: 02/02/18 Recommended therapy after discharge: home health OT/PT Recommended equipment: Slideboard and wheelchair, anticipating ramp Daily Functional Update: Transfers Device Sit to Stand Transfer: Assistive Device: Sliding Board (01/24/2018 8:30 AM) No Data Recorded Gait Device Assist Required Distance Gait: Assistive Device: IV Pole (12/01/2017 11:00 AM) No Data Recorded Gait Distance: 400 feet (12/01/2017 11:00 AM) Toileting Assist Required Equipment Toilet Transfer Toileting Assist: Total Assist (01/06/2018 1:00 PM) No Data Recorded No Data Recorded Dressing Lower Body LE Dressing Assist: Total Assist (01/21/2018 8:30 AM) Chrondrosarcoma s/p hemipelvectomy - 12/14/17: left hemipelvectomy, jamil sacrectomy >wound vac in place. Changes M/W/F by wound vac team. PO 15mg oxycodone MWF for WV changes + lidocaine into sponge during acute hospitalization - wean off IV pain meds as able >Change dressings prn with dry sterile gauze and hypafix tape >vitamin A &D for labia wound, collagenase for left lower abdomen wound healing >Orhto requesting plastic surgery consult regarding any intervention for abdoulaye- incisional wounds Post-op pain in setting of chronic pain Phantom limb pain, neuropathic pain >Tylenol, oxycontin 10mg BID and oxycodone 20mg q3h prn. Lidoderm patch prn. > nortriptyline 25mg HS > Continue gabapentin 800mg Q6h s/p diverting colostomy - Stool saturating wound. Diverting colostomy done 12/30 >wound/ostomy consulted Bladder injury, recent repair - bladder and urethral injuries during hemipelvectomy on 12/14/17 - underwent cystoscopy with left ureteral stent insertion, Bladder neck repair, Urethroplasty and repair of urethral injury, Vaginal closure >continue melchor catheter > Urology f/u after rehab discharge Chest lesions (metastases?) - 11/26/17 CT: few small pulmonary nodules. >plan is to resect the masses in the chest later >CT chest scheduled for 02/08 with f/u with CTS surgery GBS bacteremia w/ sepsis due to left hip wound - Fever and leukocytosis began 12/20/17, Bcx 1/ positive for GBS on 12/23 -Fever 01/21 - blood cx and urine cx NGTD >Completed course of abx 01/23 ertapenem Candiduria - Treating given indwelling melchor and inability to remove melchor d/t recent bladder repair > micafungin d/c'ed on 01/17 DVT - 11/30/17 IVC filter for DVT within the external iliac vein >cont Xarelto ABLA - Hgb 7.8 on admission to rehab - no concern for current bleed at this time >monitor labs > 01/15: Hgb 6.5, transfused 1unit pRBCs T2DM - A1c 6.5%, controlled - CAMP TENDER regimen: Metformin thousand milligrams twice a day, [id number] mg daily >Continue with Lantus 22 units QHS, novolog 8u postmeal, MDCF 5x per day >Continue NPH 30 units with nocturnal tube feeds - please hold NPH if tube feed are held and give at the start of tube feed 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 - CAMP TENDER 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 daily - TSH 2.1 this admission >continue CAMP TENDER levothyroxine >She will need repeat thyroid function tests in 6-8 weeks MDD CLAUDIA Adjustment disorder with mixed anxiety and depressed mood > continue CAMP TENDER Wellbutrin and buspar Nutrition - 01/17 albumin 2.6, Prealbumin 13.0, likely check Q7days - 01/24 albumin 2.4, Prealbumin 11.0, recheck 01/31 >Current diet: diabeticand nocturnal tube feeds - Nutren 1.5 from 2200- 0400 at 75mL/hr through Corpakwith3 protein packs per day, [id number] q4h > Case Packer And Sealer consult and d/c tube feeds once eating to meet needs > weekly prealbumin HLD: holding CAMP TENDER statin Insomnia: nortriptyline 25mg qhs Skin:There are no pressure sores currently. Bowel:ostomy Bladder:Cointinue melchor for now Mental Health:consult neuropsychology to provide support / counseling DVT Prophylaxis:Xarelto, will discharge on it Subjective No acute events overnight. Pt lying in bed when seen this am. Plastic surgery to come assess pt's wound this am. Will give fentanyl prior to wound vac change today. Objective Vital Signs: Last Filed Vital Signs: 24 Hour Range BP: 115/54 (01/25 800) Temp: 36.7 C (98 F) (01/25 800) Pulse: 122 (01/25 800) Respirations: 18 PER MINUTE (01/25 800) SpO2: 95 % (01/25 800) O2 Delivery: None (Room Air) (01/25 800) BP: (110-124)/(54-73) Temp: [36.6 C (97.9 F)-37.6 C (99.7 F)] Pulse: [104-127] Respirations: [18 PER MINUTE-20 PER MINUTE] SpO2: [93 %-99 %] O2 Delivery: None (Room Air) Intensity Pain Scale 0-10 (Pain 1): 5 (01/24/18 0949) Vitals: 01/22/18 0523 01/23/18 0652 01/24/18 0332 Weight: 98.2 kg (216 lb 7.9 oz) 86 kg (189 lb 9.5 oz) 99.4 kg (219 lb 2.2 oz) Intake/Output Summary: (Last 24 hours) Intake/Output Summary (Last 24 hours) at 01/24/18 1059 Last data filed at 01/24/18 0900 Gross per 24 hour Intake 1730 ml Output 3125 ml Net -1395 ml Stool Occurrence: 1 Bladder Scan (mL): 0 milliliters (01/24/18 0800) Oral Diet Order: Diabetic [id number] Kcal/day (60 g Carb/meal, 30 g Carb/HS snack ) Last BM Date: 01/23/18 Lab: Results for orders placed or performed during the hospital encounter of 04/27/ 18 (from the past 24 hour(s)) POC GLUCOSE Collection Time: 01/23/18 12:04 PM # # Low-High Glucose, POC 262 (H) 70 - 100 MG/DL POC GLUCOSE Collection Time: 01/23/18 4:56 PM # # Low-High Glucose, POC 195 (H) 70 - 100 MG/DL POC GLUCOSE Collection Time: 01/23/18 8:53 PM # # Low-High Glucose, POC 211 (H) 70 - 100 MG/DL POC GLUCOSE Collection Time: 01/24/18 3:32 AM # # Low-High Glucose, POC 191 (H) 70 - 100 MG/DL BASIC METABOLIC PANEL CELLULAR THERAPEUTICS Collection Time: 01/24/18 5:42 AM # # Low-High Sodium 136 (L) 137 - 147 MMOL/L Potassium 4.4 3.5 - 5.1 MMOL/L Chloride 100 98 - 110 MMOL/L CO2 29 21 - 30 MMOL/L Anion Gap 7 3 - 12 Glucose 230 (H) 70 - 100 MG/DL Blood Urea Nitrogen 16 7 - 25 MG/DL Creatinine 0.55 0.4 - 1.00 MG/DL Calcium 8.8 8.5 - 10.6 MG/DL eGFR Non >60 >60 mL/min eGFR >60 >60 mL/min CBC CELLULAR THERAPEUTICS Collection Time: 01/24/18 5:42 AM # # Low-High White Blood Cells 12.1 (H) 4.5 - 11.0 K/UL RBC 2.98 (L) 4.0 - 5.0 M/UL Hemoglobin 8.0 (L) 12.0 - 15.0 GM/DL Hematocrit 24.4 (L) 36 - 45 % MCV 82.0 80 - 100 FL MCH 27.0 26 - 34 PG MCHC 32.9 32.0 - 36.0 G/DL RDW 17.9 (H) 11 - 15 % Platelet Count 430 (H) 150 - 400 K/UL MPV 7.3 7 - 11 FL PREALBUMIN Collection Time: 01/24/18 5:42 AM # # Low-High Prealbumin 11.0 (L) 17 - 34 MG/DL LIVER FUNCTION PANEL Collection Time: 01/24/18 5:42 AM # # Low-High Total Bilirubin 0.2 (L) 0.3 - 1.2 MG/DL Bilirubin, Direct <0.1 <0.4 MG/DL Albumin 2.4 (L) 3.5 - 5.0 G/DL Alk Phosphatase 137 (H) 25 - 110 U/L AST (SGOT) 104 (H) 7 - 40 U/L ALT (SGPT) 97 (H) 7 - 56 U/L Total Protein 5.7 (L) 6.0 - 8.0 G/DL POC GLUCOSE Collection Time: 01/24/18 6:51 AM # # Low-High Glucose, POC 175 (H) 70 - 100 MG/DL Scheduled Meds: aspirin chewable tablet 81 mg 81 mg Oral QDAY buPROPion (WELLBUTRIN) tablet 100 mg 100 mg Oral TID busPIRone (BUSPAR) tablet 30 mg 30 mg Oral BID collagenase (SANTYL) topical ointment Topical QDAY docusate (COLACE) capsule 100 mg 100 mg Oral BID ferrous sulfate (FEOSOL, FEROSUL) tablet 325 mg 325 mg Oral TID w/ meals gabapentin (NEURONTIN) capsule 800 mg 800 mg Oral QID insulin aspart U-100 (NOVOLOG FLEXPEN) injection PEN 0-14 Units 0-14 Units Subcutaneous 5 X Day insulin aspart U-100 (NOVOLOG FLEXPEN) injection PEN 10 Units 10 Units Subcutaneous TID after meals insulin aspart U-100 (NOVOLOG FLEXPEN) injection PEN 8 Units 8 Units Subcutaneous QHS insulin glargine (LANTUS SOLOSTAR, BASAGLAR) injection PEN 20 Units 20 Units Subcutaneous QHS insulin NPH (HUMULIN N KwikPen) injection PEN 28 Units 28 Units Subcutaneous QDAY(21) lactobacillus rhamnosus GG (CULTURELLE) 15 billion cell capsule 1 capsule 1 capsule Oral BID w/meals levothyroxine (SYNTHROID) tablet 175 mcg 175 mcg Oral QDAY before breakfast lidocaine (LIDODERM) 5 % topical patch 2 patch 2 patch Topical QDAY nortriptyline (PAMELOR) capsule 25 mg 25 mg Oral QHS oxyCODONE (ROXICODONE, OXY-IR) tablet 15 mg 15 mg Oral Once per day on Wed oxyCODONE SR (OXYCONTIN) tablet 10 mg 10 mg Oral BID pantoprazole DR (PROTONIX) tablet 40 mg 40 mg Oral QDAY(21) rivaroxaban (XARELTO) tablet 20 mg 20 mg Oral QDAY w/breakfast simvastatin (ZOCOR) tablet 20 mg 20 mg Oral QHS sodium chloride PF 0.9% flush 20 mL 20 mL Intravenous FLUSH TID vitamin A & D topical ointment Topical BID Continuous Infusions: PRN and Respiratory Meds:acetaminophen Q6H PRN, alum/mag hydroxide/simeth Q6H PRN, calcium carbonate Q4H PRN, milk of magnesia (CONC) Q4H PRN, ondansetron ( ZOFRAN) IV Q6H PRN, oxyCODONE Q4H PRN, pancrelipase 20,000 Units/ sodium bicarbonate 650 mg(#) PRN (Catalogue Librarian from Rx) Physical Exam VS: BP 115/54 (BP Source: Arm, Left) | Pulse (!) 122 Comment: Rn Notified | Temp 36.7 C (98 F) | Ht 160 cm (63") | Wt 99.4 kg (219 lb 2.2 oz) Comment : wound vac removed off footboard of bed | LMP 01/14/2013 | SpO2 95% | BMI 38.82 kg/m Gen: awake, alert, NAD, corpak in place HEENT: left ear w/o erythema or drainage. CV: RRR, no murmur Pulm: CTAB, no w/r Abd: nondistended, nontender Extremities: mild edema rle, s/p hemipelvectomy on left with dressings and wound vac in place Skin: warm, dry Neuro: alert, oriented, speech fluent and clear, eomi, at least antigravity strength in remaining 3 extremities Therapy Notes & Labs Reviewed. Ravi Pride DO Pager [phone] * Serenity Concepcion MD - 01/24/2018 8:38 AM CDT Formatting of this note may be different from the original. Endocrine Progress Note Today's Date: 01/24/2018 Admission Date: 01/14/2018 LOS: 10 days Impression: Principal Problem: Left hip amputation status Active Problems: Chondrosarcoma (HCC) Acute blood loss as cause of postoperative anemia Depression Anxiety DM (diabetes mellitus) (HCC) 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 Chronic pain Post-op pain Bacteremia Amputated left leg (HCC) Candiduria Recommendations: NPH 28 units SQ qhs with nocturnal tube feeds + Novolog 8 units SQ qhs with nocturnal TFs Hold if TFs are interrupted Discontinue if TFs are stopped Lantus 20 units SQ qhs Will increase Novolog to 12 units SQ TID with meals - post meal dosing Novolog MDCF Continue LT4 therapy Note rising TSH this admit; will send repeat TSH now Late addendum due to error noted in my documentation on PE on 01.24.2018. HPI: Beata Kaiser is a 52 y.o. female. Patient is new to me this morning since transfer from [facility] to [facility]. Chart reviewed / old records reviewed / labs reviewed / imaging reviewed. I have summarized pertinent information in this daily note. S/p left hemipelvectomy DM2 with stress hyperglycemia HgbA1C 6.5%. CAMP TENDER meds: Metformin + Jardiance / PCP in [place], [place] On enteral feeds -- Nutren 1.5 from 10pm to 4am. 75mL per hour. Current MDI insulin regimen: NPH 28 units SQ qhs with nocturnal tube feeds + Novolog 8 units SQ qhs with nocturnal TFs Lantus 20 units SQ qhs Novolog 10 units SQ TID with meals Novolog MDCF Patient undergoing dressing change at time of my visit; requesting pain medicine. Eating 100% of meals; no hypoglycemia in past [address] note reviewed / at time of writing this note, enteral feeds remain on manage orders section: Pt okay to DC off of nocturnal TF 2/2 PO intake of 93% kcal, 72% protein x 5 day average. ? Consider trial of 1-2 days off of EN feeds before pulling Corpak 2/2 pt with increased needs. Past Medical History: Diagnosis Date Anxiety Back pain Depression DM (diabetes mellitus) (HCC) 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 Review of systems: Pain associated with dressing change. No fevers. Medications Scheduled Meds: aspirin chewable tablet 81 mg 81 mg Oral QDAY buPROPion (WELLBUTRIN) tablet 100 mg 100 mg Oral TID busPIRone (BUSPAR) tablet 30 mg 30 mg Oral BID collagenase (SANTYL) topical ointment Topical QDAY docusate (COLACE) capsule 100 mg 100 mg Oral BID ferrous sulfate (FEOSOL, FEROSUL) tablet 325 mg 325 mg Oral TID w/ meals gabapentin (NEURONTIN) capsule 800 mg 800 mg Oral QID insulin aspart U-100 (NOVOLOG FLEXPEN) injection PEN 0-14 Units 0-14 Units Subcutaneous 5 X Day insulin aspart U-100 (NOVOLOG FLEXPEN) injection PEN 10 Units 10 Units Subcutaneous TID after meals insulin aspart U-100 (NOVOLOG FLEXPEN) injection PEN 8 Units 8 Units Subcutaneous QHS insulin glargine (LANTUS SOLOSTAR, BASAGLAR) injection PEN 20 Units 20 Units Subcutaneous QHS insulin NPH (HUMULIN N KwikPen) injection PEN 28 Units 28 Units Subcutaneous QDAY(21) lactobacillus rhamnosus GG (CULTURELLE) 15 billion cell capsule 1 capsule 1 capsule Oral BID w/meals levothyroxine (SYNTHROID) tablet 175 mcg 175 mcg Oral QDAY before breakfast lidocaine (LIDODERM) 5 % topical patch 2 patch 2 patch Topical QDAY nortriptyline (PAMELOR) capsule 25 mg 25 mg Oral QHS oxyCODONE (ROXICODONE, OXY-IR) tablet 15 mg 15 mg Oral Once per day on Wed oxyCODONE SR (OXYCONTIN) tablet 10 mg 10 mg Oral BID pantoprazole DR (PROTONIX) tablet 40 mg 40 mg Oral QDAY(21) rivaroxaban (XARELTO) tablet 20 mg 20 mg Oral QDAY w/breakfast simvastatin (ZOCOR) tablet 20 mg 20 mg Oral QHS sodium chloride PF 0.9% flush 20 mL 20 mL Intravenous FLUSH TID vitamin A & D topical ointment Topical BID Continuous Infusions: PRN and Respiratory Meds:acetaminophen Q6H PRN, alum/mag hydroxide/simeth Q6H PRN, calcium carbonate Q4H PRN, milk of magnesia (CONC) Q4H PRN, ondansetron ( ZOFRAN) IV Q6H PRN, oxyCODONE Q4H PRN, pancrelipase 20,000 Units/ sodium bicarbonate 650 mg(#) PRN (Catalogue Librarian from Rx) Objective Vital Signs: Last Filed Vital Signs: 24 Hour Range BP: 110/63 (01/25 332) Temp: 36.6 C (97.9 F) (01/25 332) Pulse: 104 (01/25 332) Respirations: 18 PER MINUTE (01/25 332) SpO2: 93 % (01/25 332) O2 Delivery: None (Room Air) (01/25 332) BP: (110-124)/(62-73) Temp: [36.6 C (97.9 F)-37.6 C (99.7 F)] Pulse: [104-127] Respirations: [18 PER MINUTE-20 PER MINUTE] SpO2: [93 %-99 %] O2 Delivery: None (Room Air) Intensity Pain Scale 0-10 (Pain 1): 7 (01/24/18528) Vitals: 01/22/18 0523 01/23/18 0652 01/24/18331 Weight: 98.2 kg (216 lb 7.9 oz) 86 kg (189 lb 9.5 oz) 99.4 kg (219 lb 2.2 oz) Physical Exam Gen-alert; mild distress due to dressing change HEENT-NGT in place CV-tachy Pulm-no distress Ext-s/p left jamil-pelvectomy Lab Review Comprehensive Metabolic Profile Lab Results Component Value Date/Time NA 136 (L) 01/24/2018 05:42 AM K 4.4 01/24/2018 05:42 AM CL 100 01/24/2018 05:42 AM CO2 29 01/24/2018 05:42 AM GAP 7 01/24/2018 05:42 AM BUN 16 01/24/2018 05:42 AM CR 0.55 01/24/2018 05:42 AM GLU 230 (H) 01/24/2018 05:42 AM Lab Results Component Value Date/Time CA 8.8 01/24/2018 05:42 AM PO4 2.2 01/03/2018 05:10 AM ALBUMIN 2.6 (L) 01/17/2018 01:11 PM TOTPROT 5.4 (L) 01/14/2018 04:40 AM ALKPHOS 92 01/14/2018 04:40 AM AST 20 01/14/2018 04:40 AM ALT 19 01/14/2018 04:40 AM TOTBILI 0.2 (L) 01/14/2018 04:40 AM GFR >60 01/24/2018 05:42 AM GFRAA >60 01/24/2018 05:42 AM Lab Results Component Value Date TRIG 254 (H) 01/13/2018 TSH Date Value Ref Range Status 01/09/2018 16.790 (H) 0.35 - 5.00 MCU/ML Final No results found for: URMALBCRRAT Glucose testing Recent Labs 01/23/18 0328 01/23/18 0647 01/23/18 0823 01/23/18 1204 01/23/18 1656 01/23/18 2053 01/24/18 0332 01/24/18 0651 GLUPOC 284* 209* 261* 262* 195* 211* 191* 175* Hemoglobin A1C Date Value Ref Range Status 12/28/2017 6.5 (H) 4.0 - 6.0 % Final Comment: The ADA recommends that most patients with type 1 and type 2 diabetes maintain an A1c level <7%. Radiology and other Diagnostics Review: Comparison: CT abdomen/pelvis January 06, 2018. FINDINGS: [...] Skyler Macias M.D. on 01/21/2018 4:19 PM Serenity Concepcion MD [phone] * Madhuri Mcelroy RN - 01/23/2018 7:31 PM CDT Pt reports 3 bladder spasms today. One nursing staff noted w/air passing and small incontinence. * Ruth Garcia - 01/23/2018 2:50 PM CDT Activity Therapy Patient attended musical performance provided by a [employer] vendor, this activity therapist supervised the event. * Ruth Garcia - 01/23/2018 2:42 PM CDT Activity Therapy Patient participated in a pet therapy session today under the supervision of this therapist. * Kalie Sibley MBBS - 01/23/2018 12:01 PM CDT Formatting of this note may be different from the original. Chart Reviewed . Blood sugars as noted below Recent Labs 01/22/18 0703 01/22/18 0806 01/22/18 1211 01/22/18 1713 01/22/18 2052 01/23/18 0328 01/23/18 0647 01/23/18 0823 GLUPOC 165* 138* 183* 114* 133* 284* 209* 261* Estimated Creatinine Clearance: 97.7 mL/min (based on SCr of 0.55 mg/dL). Plan - Patient with hyperglycemia related to the tube feeds so we have made the following changes - Change NPH to 28 units to be given at start of nocturnal tube feeds - please hold NPH if tube feeds are held or planned to be held and start Novolog 8 units which is to be given at the beginning of nocturnal tube feeds as well and to be held if tube feeds are held - Continue with Novolog 10 units post meals - Continue with Lantus 20 units QHS - Continue with MDCF x5 Discussed with Dr. Ernesto Sibley Endocrine Fellow Pager # [phone] 01/23/2018 * Ruth Allen MD - 01/23/2018 7:52 AM CDT Formatting of this note may be different from the original. ATTESTATION I personally performed the banuelos portions of the E/M visit, discussed case with resident and concur with resident documentation of history, physical exam, assessment, and treatment plan unless otherwise noted. Labs and VS reviewed and stable. No true fevers, all cultures NGTD. Cont current abx. Endocrine adjusting insulin. Patient remains medically stable to participate in IRF program. Staff name: Ruth Allen MD Date: 01/23/2018 Physical Medicine & Rehabilitation Progress Note Today's Date: 01/23/2018 Admission Date: 01/14/2018 LOS: 9 days Insurance: [facility] Principal Problem: Left hip amputation status Active Problems: Chondrosarcoma (HCC) Acute blood loss as cause of postoperative anemia Depression Anxiety DM (diabetes mellitus) (HCC) 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 Chronic pain Post-op pain Bacteremia Amputated left leg (HCC) Candiduria Assessment/Plan: Beata Lema a 52 y.o.female[facility] the following issues : 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 Goals: household mobility, at wheelchair level, min-mod A Tentative discharge date: 02/02/18 Recommended therapy after discharge: home health OT/PT Recommended equipment: Slideboard and wheelchair, anticipating ramp Daily Functional Update: Transfers Device Sit to Stand Transfer: Assistive Device: Sliding Board (01/21/2018 2:00 PM) No Data Recorded Gait Device Assist Required Distance Gait: Assistive Device: IV Pole (12/01/2017 11:00 AM) No Data Recorded Gait Distance: 400 feet (12/01/2017 11:00 AM) Toileting Assist Required Equipment Toilet Transfer Toileting Assist: Total Assist (01/06/2018 1:00 PM) No Data Recorded No Data Recorded Dressing Lower Body LE Dressing Assist: Total Assist (01/21/2018 8:30 AM) Weekend: Sat: VSS. Lactate 1.4 overnight. UA bland. Blood cultures NGTD. NTD. Sun: NTD Chrondrosarcoma s/p hemipelvectomy - 12/14/17: left hemipelvectomy, jamil sacrectomy >wound vac in place. Changes M/W/F by wound vac team. PO 15mg oxycodone MWF for WV changes + lidocaine into sponge during acute hospitalization - wean off IV pain meds as able >Change dressings prn with dry sterile gauze and hypafix tape >vitamin A &D for labia wound, collagenase for left lower abdomen wound healing >Orhto requesting plastic surgery consult regarding any intervention for abdoulaye- incisional wounds Post-op pain in setting of chronic pain Phantom limb pain, neuropathic pain >Tylenol, oxycontin 10mg BID and oxycodone 20mg q3h prn. Lidoderm patch prn. > nortriptyline 25mg HS > Continue gabapentin 800mg Q6h s/p diverting colostomy - Stool saturating wound. Diverting colostomy done 12/30 >wound/ostomy consulted Bladder injury, recent repair - bladder and urethral injuries during hemipelvectomy on 12/14/17 - underwent cystoscopy with left ureteral stent insertion, Bladder neck repair, Urethroplasty and repair of urethral injury, Vaginal closure >continue melchor catheter > Urology f/u after rehab discharge Chest lesions (metastases?) - 11/26/17 CT: few small pulmonary nodules. >plan is to resect the masses in the chest later >CT chest scheduled for 02/08 with f/u with CTS surgery GBS bacteremia w/ sepsis due to left hip wound - Fever and leukocytosis began 12/20/17, Bcx 1/ positive for GBS on 12/23 - CT pelvis 12/25 showed ill-defined fluid and air along the anterior margin of the surgical site away from the drain tip. However, no discrete drainable fluid collection is noted. - OR 01/10 for wound eval - no sign of infection - posterior wound starting to granulate, WV replaced; WV changed 01/12, wound clean with blood present, no purulence >per ID recs, continue ertapenem 1 gram daily stop date 01/23 Candiduria - Treating given indwelling melchor and inability to remove melchor d/t recent bladder repair > micafungin d/c'ed on 01/17 DVT - 11/30/17 IVC filter for DVT within the external iliac vein >cont Xarelto ABLA - Hgb 7.8 on admission to rehab - no concern for current bleed at this time >monitor labs > 01/15: Hgb 6.5, transfused 1unit pRBCs T2DM - A1c 6.5%, controlled - CAMP TENDER regimen: Metformin thousand milligrams twice a day, [id number] mg daily >Continue with Lantus 22 units QHS, novolog 8u postmeal, MDCF 5x per day >Continue NPH 30 units with nocturnal tube feeds - please hold NPH if tube feed are held and give at the start of tube feed 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 - CAMP TENDER 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 daily - TSH 2.1 this admission >continue CAMP TENDER levothyroxine >She will need repeat thyroid function tests in 6-8 weeks MDD CLAUDIA Adjustment disorder with mixed anxiety and depressed mood > continue CAMP TENDER Wellbutrin and buspar Nutrition - 01/17 albumin 2.6, Prealbumin 13.0, likely check Q7days >Current diet: diabeticand nocturnal tube feeds - Nutren 1.5 from 2200- 0400 at 75mL/hr through Corpakwith3 protein packs per day, [id number] q4h > Case Packer And Sealer consult and d/c tube feeds once eating to meet needs > weekly prealbumin HLD: holding CAMP TENDER statin Insomnia: nortriptyline 25mg qhs Skin:There are no pressure sores currently. Bowel:ostomy Bladder:Cointinue melchor for now Mental Health:consult neuropsychology to provide support / counseling DVT Prophylaxis:Xarelto, will discharge on it Subjective No acute events overnight.Patient reports sleeping well overnight and feeling well this am. No complaints. No fevers overnight. Objective Vital Signs: Last Filed Vital Signs: 24 Hour Range BP: 127/64 (01/23 345) Temp: 36.8 C (98.3 F) (01/23 345) Pulse: 114 (01/23 345) Respirations: 18 PER MINUTE (01/23 345) SpO2: 95 % (01/23 345) O2 Delivery: None (Room Air) (01/23 345) BP: (101-134)/(54-66) Temp: [36.8 C (98.3 F)-37.7 C (99.8 F)] Pulse: [110-124] Respirations: [18 PER MINUTE] SpO2: [93 %-100 %] O2 Delivery: None (Room Air) Intensity Pain Scale 0-10 (Pain 1): 5 (01/23/18 0336) Vitals: 01/21/18 0724 01/22/18 0523 01/23/18 0652 Weight: 102.6 kg (226 lb 3.1 oz) 98.2 kg (216 lb 7.9 oz) 86 kg (189 lb 9.5 oz) Intake/Output Summary: (Last 24 hours) Intake/Output Summary (Last 24 hours) at 01/23/18 0752 Last data filed at 01/23/18 0600 Gross per 24 hour Intake 827 ml Output 3200 ml Net -2373 ml Stool Occurrence: 1 Oral Diet Order: Diabetic [id number] Kcal/day (60 g Carb/meal, 30 g Carb/HS snack ) Last BM Date: 01/22/18 Lab: Results for orders placed or performed during the hospital encounter of (from the past 24 hour(s)) POC GLUCOSE Collection Time: 01/22/18 8:06 AM # # Low-High Glucose, POC 138 (H) 70 - 100 MG/DL POC GLUCOSE Collection Time: 01/22/18 12:11 PM # # Low-High Glucose, POC 183 (H) 70 - 100 MG/DL POC GLUCOSE Collection Time: 01/22/18 5:13 PM # # Low-High Glucose, POC 114 (H) 70 - 100 MG/DL POC GLUCOSE Collection Time: 01/22/18 8:52 PM # # Low-High Glucose, POC 133 (H) 70 - 100 MG/DL POC GLUCOSE Collection Time: 01/23/18 3:28 AM # # Low-High Glucose, POC 284 (H) 70 - 100 MG/DL POC GLUCOSE Collection Time: 01/23/18 6:47 AM # # Low-High Glucose, POC 209 (H) 70 - 100 MG/DL Scheduled Meds: aspirin chewable tablet 81 mg 81 mg Oral QDAY buPROPion (WELLBUTRIN) tablet 100 mg 100 mg Oral TID busPIRone (BUSPAR) tablet 30 mg 30 mg Oral BID collagenase (SANTYL) topical ointment Topical QDAY docusate (COLACE) capsule 100 mg 100 mg Oral BID ertapenem (INVANZ) IVP 1 g 1 g Intravenous Q24H* ferrous sulfate (FEOSOL, FEROSUL) tablet 325 mg 325 mg Oral TID w/ meals gabapentin (NEURONTIN) capsule 800 mg 800 mg Oral QID insulin aspart U-100 (NOVOLOG FLEXPEN) injection PEN 0-14 Units 0-14 Units Subcutaneous 5 X Day insulin aspart U-100 (NOVOLOG FLEXPEN) injection PEN 10 Units 10 Units Subcutaneous TID after meals insulin glargine (LANTUS SOLOSTAR, BASAGLAR) injection PEN 20 Units 20 Units Subcutaneous QHS insulin NPH (HUMULIN N KwikPen) injection PEN 32 Units 32 Units Subcutaneous QDAY(21) lactobacillus rhamnosus GG (CULTURELLE) 15 billion cell capsule 1 capsule 1 capsule Oral BID w/meals levothyroxine (SYNTHROID) tablet 175 mcg 175 mcg Oral QDAY before breakfast lidocaine (LIDODERM) 5 % topical patch 2 patch 2 patch Topical QDAY nortriptyline (PAMELOR) capsule 25 mg 25 mg Oral QHS oxyCODONE (ROXICODONE, OXY-IR) tablet 15 mg 15 mg Oral Once per day on Wed oxyCODONE SR (OXYCONTIN) tablet 10 mg 10 mg Oral BID pantoprazole DR (PROTONIX) tablet 40 mg 40 mg Oral QDAY(21) rivaroxaban (XARELTO) tablet 20 mg 20 mg Oral QDAY w/breakfast simvastatin (ZOCOR) tablet 20 mg 20 mg Oral QHS sodium chloride PF 0.9% flush 20 mL 20 mL Intravenous FLUSH TID vitamin A & D topical ointment Topical BID Continuous Infusions: PRN and Respiratory Meds:acetaminophen Q6H PRN, alum/mag hydroxide/simeth Q6H PRN, calcium carbonate Q4H PRN, milk of magnesia (CONC) Q4H PRN, ondansetron ( ZOFRAN) IV Q6H PRN, oxyCODONE Q4H PRN, pancrelipase 20,000 Units/ sodium bicarbonate 650 mg(#) PRN (Catalogue Librarian from Rx) Physical Exam VS: BP 127/64 (BP Source: Arm, Left) | Pulse 114 | Temp 36.8 C (98.3 F) | Ht 160 cm (63") | Wt 86 kg (189 lb 9.5 oz) Comment: wound vac removed off bed | LMP 01/14/2013 | SpO2 95% | BMI 33.59 kg/m Gen: awake, alert, NAD, corpak in place HEENT: left ear w/o erythema or drainage. CV: RRR, no murmur Pulm: CTAB, no w/r Abd: nondistended, nontender Extremities: mild edema rle, s/p hemipelvectomy on left with dressings and wound vac in place Skin: warm, dry Neuro: alert, oriented, speech fluent and clear, eomi, at least antigravity strength in remaining 3 extremities Therapy Notes & Labs Reviewed. Ravi Pride DO Pager [phone] * Kalie Sibley MBBS - 01/22/2018 12:52 PM CDT Formatting of this note may be different from the original. Chart Reviewed . Blood sugars as noted below Recent Labs 01/21/18 0628 01/21/18 1155 01/21/18 1655 01/21/18 2146 01/22/18 0302 01/22/18 0703 01/22/18 0806 01/22/18 1211 GLUPOC 174* 220* 243* 179* 225* 165* 138* 183* Estimated Creatinine Clearance: 104.9 mL/min (based on SCr of 0.55 mg/dL). Plan - Patient with hyperglycemia predominantly prandial so we have made the following changes - Increase Novolog to 10 units post meals - Continue with Lantus 20 units QHS - Continue with NPH 32 units with nocturnal tube feeds - please hold NPH if tube feed are held and give at the start of tube feed - Continue with MDCF x5 Discussed with Dr. Ernesto Sibley Endocrine Fellow Pager # [phone] 01/22/2018 * Ruth Allen MD - 01/22/2018 8:18 AM CDT Formatting of this note may be different from the original. ATTESTATION I personally performed the banuelos portions of the E/M visit, discussed case with resident and concur with resident documentation of history, physical exam, assessment, and treatment plan unless otherwise noted. Labs and VS reviewed and stable. BCx NGTD, UA neg, lactate WNL. Still low grade temps. Pt reports "hot flashes", o/w no focal symptoms. Colostomy bag with formed stool. Wounds stable and wound care, Plastics, Ortho monitoring. ID following and plan reviewed as in their note. Patient remains medically stable to participate in IRF program. Staff name: Ruth Allen MD Date: 01/22/2018 Physical Medicine & Rehabilitation Progress Note Today's Date: 01/22/2018 Admission Date: 01/14/2018 LOS: 8 days Insurance: [facility] Principal Problem: Left hip amputation status Active Problems: Chondrosarcoma (HCC) Acute blood loss as cause of postoperative anemia Depression Anxiety DM (diabetes mellitus) (HCC) 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 Chronic pain Post-op pain Bacteremia Amputated left leg (HCC) Candiduria Assessment/Plan: Beata Lema a 52 y.o.femalead[facility]with the following issues : 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 Goals: household mobility, at wheelchair level, min-mod A Tentative discharge date: 02/02/18 Recommended therapy after discharge: home health OT/PT Recommended equipment: Slideboard and wheelchair, anticipating ramp Daily Functional Update: Transfers Device Sit to Stand Transfer: Assistive Device: Sliding Board (01/21/2018 2:00 PM) No Data Recorded Gait Device Assist Required Distance Gait: Assistive Device: IV Pole (12/01/2017 11:00 AM) No Data Recorded Gait Distance: 400 feet (12/01/2017 11:00 AM) Toileting Assist Required Equipment Toilet Transfer Toileting Assist: Total Assist (01/06/2018 1:00 PM) No Data Recorded No Data Recorded Dressing Lower Body LE Dressing Assist: Total Assist (01/21/2018 8:30 AM) Weekend: Sat: VSS. Lactate 1.4 overnight. UA bland. Blood cultures NGTD. NTD. 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 Changes M/W/F by wound vac team. PO 15mg oxycodone MWF for WV changes + lidocaine into sponge during acute hospitalization - wean off IV pain meds as able >Change dressings prn with dry sterile gauze and hypafix tape >vitamin A &D for labia wound, collagenase for left lower abdomen wound healing >Orhto requesting plastic surgery consult regarding any intervention for abdoulaye- incisional wounds Post-op pain in setting of chronic pain Phantom limb pain, neuropathic pain >Tylenol, oxycontin 10mg BID and oxycodone 20mg q3h prn. Lidoderm patch prn. > nortriptyline 25mg HS > Continue gabapentin 800mg Q6h s/p diverting colostomy - Stool saturating wound. Diverting colostomy done 12/30 >wound/ostomy consulted Bladder injury, recent repair - bladder and urethral injuries during hemipelvectomy on 12/14/17 - underwent cystoscopy with left ureteral stent insertion, Bladder neck repair, Urethroplasty and repair of urethral injury, Vaginal closure >continue melchor catheter > Urology f/u after rehab discharge Chest lesions (metastases?) - 11/26/17 CT: few small pulmonary nodules. >plan is to resect the masses in the chest later >CT chest scheduled for 02/08 with f/u with CTS surgery GBS bacteremia w/ sepsis due to left hip wound - Fever and leukocytosis began 12/20/17, Bcx 1/2 positive for GBS on 12/23 - CT pelvis 12/25 showed ill-defined fluid and air along the anterior margin of the surgical site away from the drain tip. However, no discrete drainable fluid collection is noted. - OR 01/10 for wound eval - no sign of infection - posterior wound starting to granulate, WV replaced; WV changed 01/12, wound clean with blood present, no purulence >per ID recs, continue ertapenem 1 gram daily stop date 01/23 Candiduria - Treating given indwelling melchor and inability to remove melchor d/t recent bladder repair > micafungin d/c'ed on 01/17 DVT - 11/30/17 IVC filter for DVT within the external iliac vein >cont Xarelto ABLA - Hgb 7.8 on admission to rehab - no concern for current bleed at this time >monitor labs > 01/15: Hgb 6.5, transfused 1unit pRBCs T2DM - A1c 6.5%, controlled - CAMP TENDER regimen: Metformin thousand milligrams twice a day, [id number] mg daily >Continue with Lantus 22 units QHS, novolog 8u postmeal, MDCF 5x per day >Continue NPH 30 units with nocturnal tube feeds - please hold NPH if tube feed are held and give at the start of tube feed 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 - CAMP TENDER 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 daily - TSH 2.1 this admission >continue CAMP TENDER levothyroxine >She will need repeat thyroid function tests in 6-8 weeks MDD CLAUDIA Adjustment disorder with mixed anxiety and depressed mood > continue CAMP TENDER Wellbutrin and buspar Nutrition - 01/17 albumin 2.6, Prealbumin 13.0, likely check Q7days >Current diet: diabeticand nocturnal tube feeds - Nutren 1.5 from 2200- 0400 at 75mL/hr through [employer] protein packs per day, [id number] q4h > Case Packer And Sealer consult and d/c tube feeds once eating to meet needs > weekly prealbumin HLD: holding CAMP TENDER statin Insomnia: nortriptyline 25mg qhs Skin:There are no pressure sores currently. Bowel:ostomy Bladder:Cointinue melchor for now Mental Health:consult neuropsychology to provide support / counseling DVT Prophylaxis:Xarelto, will discharge on it Subjective No acute events overnight. Reports feeling okay this am. No complaints. Low grade fevers overnight. She reports left ear drainage w/ cotton swag showing wax. Objective Vital Signs: Last Filed Vital Signs: 24 Hour Range BP: 114/62 (01/22 303) Temp: 37.1 C (98.8 F) (01/22 303) Pulse: 125 (01/22 303) Respirations: 18 PER MINUTE (01/22 303) SpO2: 94 % (01/22 303) O2 Delivery: None (Room Air) (01/22 303) BP: (114-124)/(62-74) Temp: [36.3 C (97.3 F)-38.1 C (100.5 F)] Pulse: [98-128] Respirations: [18 PER MINUTE-20 PER MINUTE] SpO2: [93 %-96 %] O2 Delivery: None (Room Air) Intensity Pain Scale 0-10 (Pain 1): 5 (01/21/18 2105) Vitals: 01/20/18 0600 01/21/18 0724 01/22/18 05 Weight: 90.5 kg (199 lb 8.3 oz) 102.6 kg (226 lb 3.1 oz) 98.2 kg (216 lb 7.9 oz ) Intake/Output Summary: (Last 24 hours) Intake/Output Summary (Last 24 hours) at 01/22/18 08 Last data filed at 01/22/18 0452 Gross per 24 hour Intake 893 ml Output 4180 ml Net -3287 ml Stool Occurrence: 1 Oral Diet Order: Diabetic 1930-4950 Kcal/day (60 g Carb/meal, 30 g Carb/HS snack ) Last BM Date: 01/21/18 Lab: Results for orders placed or performed during the hospital encounter of (from the past 24 hour(s)) POC GLUCOSE Collection Time: 01/21/18 11:55 AM # # Low-High Glucose, POC 220 (H) 70 - 100 MG/DL CULTURE-BLOOD W/SENSITIVITY Collection Time: 01/21/18 4:35 PM # # Low-High Battery Name BLOOD CULTURE Specimen Description BLOOD RIGHT PICC LINE Special Requests NONE Culture NO GROWTH 1 DAY Report Status URINALYSIS DIPSTICK REFLEX TO CULTURE Collection Time: 01/21/18 4:40 PM # # Low-High Color,UA YELLOW Turbidity,UA CLEAR CLEAR-CLEAR Specific [place]-Urine 1.018 1.003 - 1.035 pH,UA 6.0 5.0 - 8.0 Protein,UA NEG NEG-NEG Glucose,UA 1+ (A) NEG-NEG Ketones,UA NEG NEG-NEG Bilirubin,UA NEG NEG-NEG Blood,UA NEG NEG-NEG Urobilinogen,UA NORMAL NORM-NORMAL Nitrite,UA NEG NEG-NEG Leukocytes,UA NEG NEG-NEG Urine Ascorbic Acid, UA POS (A) NEG-NEG URINALYSIS MICROSCOPIC REFLEX TO CULTURE Collection Time: 01/21/18 4:40 PM # # Low-High WBCs,UA 2-10 0 - 2 /HPF RBCs,UA 0-2 0 - 3 /HPF Comment,UA Urine submitted for reflex culture if criteria are met:WBC>10, positive nitrite and/or >=1+ leukocyte esterase. If quantity is not sufficient, an addendum will follow. Squamous Epithelial Cells 0-2 0 - 5 POC GLUCOSE Collection Time: 01/21/18 4:55 PM # # Low-High Glucose, POC 243 (H) 70 - 100 MG/DL CULTURE-BLOOD W/SENSITIVITY Collection Time: 01/21/18 5:42 PM # # Low-High Battery Name BLOOD CULTURE Specimen Description BLOOD LEFT FA Special Requests NONE Culture NO GROWTH 1 DAY Report Status LACTIC ACID(LACTATE) Collection Time: 01/21/18 9:30 PM # # Low-High Lactic Acid 1.4 0.5 - 2.0 MMOL/L POC GLUCOSE Collection Time: 01/21/18 9:46 PM # # Low-High Glucose, POC 179 (H) 70 - 100 MG/DL POC GLUCOSE Collection Time: 01/22/18 3:02 AM # # Low-High Glucose, POC 225 (H) 70 - 100 MG/DL POC GLUCOSE Collection Time: 01/22/18 7:03 AM # # Low-High Glucose, POC 165 (H) 70 - 100 MG/DL POC GLUCOSE Collection Time: 01/22/18 8:06 AM # # Low-High Glucose, POC 138 (H) 70 - 100 MG/DL Scheduled Meds: aspirin chewable tablet 81 mg 81 mg Oral QDAY buPROPion (WELLBUTRIN) tablet 100 mg 100 mg Oral TID busPIRone (BUSPAR) tablet 30 mg 30 mg Oral BID collagenase (SANTYL) topical ointment Topical QDAY docusate (COLACE) capsule 100 mg 100 mg Oral BID ertapenem (INVANZ) IVP 1 g 1 g Intravenous Q24H* ferrous sulfate (FEOSOL, FEROSUL) tablet 325 mg 325 mg Oral TID w/ meals gabapentin (NEURONTIN) capsule 800 mg 800 mg Oral QID insulin aspart U-100 (NOVOLOG FLEXPEN) injection PEN 0-14 Units 0-14 Units Subcutaneous 5 X Day insulin aspart U-100 (NOVOLOG FLEXPEN) injection PEN 8 Units 8 Units Subcutaneous TID after meals insulin glargine (LANTUS SOLOSTAR, BASAGLAR) injection PEN 20 Units 20 Units Subcutaneous QHS insulin NPH (HUMULIN N KwikPen) injection PEN 32 Units 32 Units Subcutaneous QDAY(21) lactobacillus rhamnosus GG (CULTURELLE) 15 billion cell capsule 1 capsule 1 capsule Oral BID w/meals levothyroxine (SYNTHROID) tablet 175 mcg 175 mcg Oral QDAY before breakfast lidocaine (LIDODERM) 5 % topical patch 2 patch 2 patch Topical QDAY nortriptyline (PAMELOR) capsule 25 mg 25 mg Oral QHS oxyCODONE (ROXICODONE, OXY-IR) tablet 15 mg 15 mg Oral Once per day on Wed oxyCODONE SR (OXYCONTIN) tablet 10 mg 10 mg Oral BID pantoprazole DR (PROTONIX) tablet 40 mg 40 mg Oral QDAY(21) rivaroxaban (XARELTO) tablet 20 mg 20 mg Oral QDAY w/breakfast simvastatin (ZOCOR) tablet 20 mg 20 mg Oral QHS sodium chloride PF 0.9% flush 20 mL 20 mL Intravenous FLUSH TID vitamin A & D topical ointment Topical BID Continuous Infusions: PRN and Respiratory Meds:acetaminophen Q6H PRN, alum/mag hydroxide/simeth Q6H PRN, calcium carbonate Q4H PRN, milk of magnesia (CONC) Q4H PRN, ondansetron ( ZOFRAN) IV Q6H PRN, oxyCODONE Q4H PRN, pancrelipase 20,000 Units/ sodium bicarbonate 650 mg(#) PRN (Catalogue Librarian from Rx) Physical Exam VS: BP 114/62 (BP Source: Arm, Left) | Pulse (!) 125 | Temp 37.1 C (98.8 F ) | Ht 160 cm (63") | Wt 98.2 kg (216 lb 7.9 oz) Comment: wound vac removed off footboard of bed | LMP 01/14/2013 | SpO2 94% | BMI 38.35 kg/m Gen: awake, alert, NAD, corpak in place HEENT: left ear w/o erythema or drainage. CV: RRR, no murmur Pulm: CTAB, no w/r Abd: nondistended, nontender Extremities: mild edema rle, s/p hemipelvectomy on left with dressings and wound vac in place Skin: warm, dry Neuro: alert, oriented, speech fluent and clear, eomi, at least antigravity strength in remaining 3 extremities Therapy Notes & Labs Reviewed. Ravi Pride DO Pager [phone] * Nani Lynch DO - 01/21/2018 9:33 PM CDT Formatting of this note may be different from the original. Infectious Diseases Progress Note Today's Date: 01/21/2018 Admission Date: 01/14/2018 Assessment: Low grade fever 01/21 - Eschar of wound w/fat necrosis, ongoing sweats, no other new s/s # GBS bacteremia w sepsis- source suspected left hip wound, less likely pna - Fever and leukocytosis began 12/20/17 - 3 L lower lobe infiltrate - read as atelectasis - 12/20 C. diff negative - 12/23 Bcx / set group B streptococcus; source seems most likely intra-pelvic; 12/24 bcx negative - CT pelvis 12/25: "Ill-defined fluid and air along the anterior margin of the surgical site away from the drain tip. However, no discrete drainable fluid collection is noted. - OR 01/10 for wound eval - no sign of infection - posterior wound starting to granulate, WV started # Candiduria - 12/21/17 UA: wbc 2-10, negative nitrite, 1+ luukocytes, Culture > 100,000 Liliana sp - Sensitivities not done, unsure if fluconazole susceptible; repeat urine culture negative 12/28 but improved with micafungin so is suspicion for fluconazole resistance - Treating given indwelling melchor and inability to remove melchor d/t recent bladder repair - ? Candidal intertrigo - groin/mons - Cath change in OR 01/10 - no bladder leak at that time - Micafungin course completed 01/16 # s/p hemipelvectomy for Chondrosarcoma - 11/25/17 MRI: a large lesion throughout the entire left hemipelvis that appeared to be centered within the ilium - 11/30/17 open biopsy: Chondrosarcoma - 11/26/17 CT: few small pulmonary nodules. will resect the masses in the chest later - admission 12/13/17- - 12/14/17: left hemipelvectomy, jamil sacrectomy. Complicated with bladder and urethral injury. Added Cystoscopy with left ureteral stent insertion, Bladder neck repair, Urethroplasty and repair of urethral injury, Vaginal closure. - Stool saturating wound. Diverting colostomy done 12/30. - 01/06 CT: left hemipelvectomy, edema w/in the operative bed- not changed except sl more gas, more focal gas/fluid alonger anterior/inferior and superior surgical margins. #night sweats - per pt worse past week - TSH high, T4 ok, on replacement, no hypotension /lyte disturbance suggestive of adrenal disease, no menses since probably 2012 per pt - stopped HRT just before surg*; getting intermittent steroid, no s/s alternate new infection # DVT - 11/30/17 IVC filter for DVT within the external iliac vein # Obese # HTN # DM # 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 # Depression # Generalized pain # abx allergy - allergic history to Cephalexin 'years ago' with skin rash and hot flash - tolerated Penicillin when she had dental caries Recommendations: 1. Cont ertapenem 1 gram daily pending possible surgical debridement of wounds 2. BC from line and peripheral 3. UA - if pyuria, UC 4. If >3 loose stools/24 hrs check cdiff pcr 5. If cough or hypoxia, check CXR (none at this time) 6. If temp > 38.3 w/next vitals /inc concern for sepsis add vanco (pharmacy to aid in dosing) for goal trough 12-15 - if no CVC infection or UTI would be concerned about wounds/tissue necrosis as source of fever and would advocate for debridement as soon as feasible. Consider maintenance IVF if ongoing fever to cover insensible losses (as also still has notable loss from [place]) 7. Monitor for abx toxicity with intermittent cbc, cmp 8. Will follow-up cultures and plan to round again Wednesday am. Please page on- call ID [phone] with new concerns this weekend. Nani Lynch DO Division of Infectious Diseases Pager [phone] Interval History tmax 38.1, still w/intermittent sweats "hot" no chills, tachy w/ fever No cough or congestion Not sob No n/v Pain ok at this time No urine symptoms or diarrhea - ~2 soft stools last 24h Vac 1L Antimicrobial Start date End date Erythromycin 12/13 Neomycin 12/13 12/13 Polymyxin B 12/14 12/14 Ertapenem 01/10 active Gentamycin 12/14 12/15 Clindamycin 12/14 12/22 Pip/tazo 12/22 01/10 Fluconazole 12/22 12/30 Vancomycin 12/23 12/27 Micafungin 12/30 01/16 Estimated Creatinine Clearance: 107.6 mL/min (based on SCr of 0.55 mg/dL). Medications Scheduled Meds: aspirin chewable tablet 81 mg 81 mg Oral QDAY buPROPion (WELLBUTRIN) tablet 100 mg 100 mg Oral TID busPIRone (BUSPAR) tablet 30 mg 30 mg Oral BID collagenase (SANTYL) topical ointment Topical QDAY docusate (COLACE) capsule 100 mg 100 mg Oral BID ertapenem (INVANZ) IVP 1 g 1 g Intravenous Q24H* ferrous sulfate (FEOSOL, FEROSUL) tablet 325 mg 325 mg Oral TID w/ meals gabapentin (NEURONTIN) capsule 800 mg 800 mg Oral QID insulin aspart U-100 (NOVOLOG FLEXPEN) injection PEN 0-14 Units 0-14 Units Subcutaneous 5 X Day insulin aspart U-100 (NOVOLOG FLEXPEN) injection PEN 8 Units 8 Units Subcutaneous TID after meals insulin glargine (LANTUS SOLOSTAR, BASAGLAR) injection PEN 20 Units 20 Units Subcutaneous QHS insulin NPH (HUMULIN N KwikPen) injection PEN 32 Units 32 Units Subcutaneous QDAY() lactobacillus rhamnosus GG (CULTURELLE) 15 billion cell capsule 1 capsule 1 capsule Oral BID w/meals levothyroxine (SYNTHROID) tablet 175 mcg 175 mcg Oral QDAY before breakfast lidocaine (LIDODERM) 5 % topical patch 2 patch 2 patch Topical QDAY nortriptyline (PAMELOR) capsule 25 mg 25 mg Oral QHS oxyCODONE (ROXICODONE, OXY-IR) tablet 15 mg 15 mg Oral Once per day on Wed oxyCODONE SR (OXYCONTIN) tablet 10 mg 10 mg Oral BID pantoprazole DR (PROTONIX) tablet 40 mg 40 mg Oral QDAY(21) rivaroxaban (XARELTO) tablet 20 mg 20 mg Oral QDAY w/breakfast simvastatin (ZOCOR) tablet 20 mg 20 mg Oral QHS sodium chloride PF 0.9% flush 20 mL 20 mL Intravenous FLUSH TID vitamin A & D topical ointment Topical BID Continuous Infusions: PRN and Respiratory Meds:acetaminophen Q6H PRN, alum/mag hydroxide/simeth Q6H PRN, calcium carbonate Q4H PRN, milk of magnesia (CONC) Q4H PRN, ondansetron ( ZOFRAN) IV Q6H PRN, oxyCODONE Q4H PRN, pancrelipase 20,000 Units/ sodium bicarbonate 650 mg(#) PRN (Catalogue Librarian from Rx) Physical Examination Vital Signs: Last Vital Signs: 24 Hour Range BP: 122/74 (01/21 1605) Temp: 38.1 C (100.5 F) (01/21 1605) Pulse: 122 (01/21 1605) Respirations: 20 PER MINUTE (01/21 1605) SpO2: 96 % (01/21 1602) O2 Delivery: None (Room Air) (01/21 160) BP: (114-124)/(57-74) Temp: [36.3 C (97.3 F)-38.1 C (100.5 F)] Pulse: [98-127] Respirations: [18 PER MINUTE-20 PER MINUTE] SpO2: [93 %-96 %] O2 Delivery: None (Room Air) General appearance: alert, oriented, NAD; resting in bed, sl diaphoretic Lungs: clear bilaterally Heart: Regular rhythm, tachy, with no murmur Abdomen: soft, obese, normal bowel sounds, nontender Ext: s/p left hemipelvectomy; wounds dressed - [place] posteriorly; reviewed Would RN photos Skin: no new rashes noted Lines: PICC RUE- No erythema, mild tenderness above line (but no arm warmth or erythema ) Lab Review Hematology Recent Labs 01/19/1852901/21/18 0620 WBC 10.9 11.0 HGB 8.4* 8.5* HCT 24.5* 24.5* PLTCT 414* 421* Chemistry Recent Labs 01/19/18 0501/21/18 0620 NA 135* 137 K 4.5 4.3 CL 101 101 CO2 27 30 BUN 13 16 CR 0.51 0.55 GFR >60 >60 GLU 250* 174* CA 8.5 8.7 Microbiology, Radiology and other Diagnostics Review Microbiology data reviewed. Pertinent radiology reviewed Nani Lynch DO Pager [phone] * Herbert Perez, RN - 01/21/2018 8:19 PM CDT Guide wire removed after flushing tube as per SOP from corpak placed by other nurse. Tolerated well. Pt refused placement of Nasal bridle. Tube secured with tape and tegaderm. * Ruth Garcia - 01/21/2018 7:00 PM CDT Activity Therapy Patient met with a [facility] volunteer who provided in-room leisure activities. This activity therapist referred patient for the session. * Angel Villa - 01/21/2018 5:47 PM CDT Blood Cultures drawn from the left forearm using ultrasound guided and labeled at the bedside IVT Tech. * Nneka Garsia RN - 01/21/2018 2:20 PM CDT Formatting of this note may be different from the original. Wound Ostomy Note NAME:Beata Kaiser :1965 AGE: 52 y.o. ADMISSION DATE: 01/14/2018 DAYS ADMITTED: LOS: 7 days Reason for Consult/Visit: wound VAC Assessment/Plan: Principal Problem: Left hip amputation status Active Problems: Chondrosarcoma (HCC) Acute blood loss as cause of postoperative anemia Depression Anxiety DM (diabetes mellitus) (HCC) 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 Chronic pain Post-op pain Bacteremia Amputated left leg (HCC) Candiduria Wounds (NOT for Pressure Injuries) 11/30/17 0853 Left Buttocks Surgical Incision (Active) 11/30/17 0853 Buttocks Wound Orientation: Left Wound Type: Surgical Incision Wound Type:: Wound Description (Comments): Wound Image 01/21/2018 12:15 PM Agree With My Assessment? Yes 01/08/2018 9:36 PM Wound Base Assessment Moist;Eschar;Yellow 01/21/2018 12:15 PM Surrounding Skin Assessment Induration 01/21/2018 12:15 PM Wound Site Closure None 01/21/2018 12:15 PM Wound Drainage Amount None 01/20/2018 11:00 PM Wound Drainage Description Serosanguineous 01/11/2018 11:00 AM Wound Dressing Status Changed 01/21/2018 12:15 PM Wound Dressing and / or Treatment Abdominal Pad;Hypafix Tape 01/21/2018 12:15 PM Wound Length (cm) (Wound Team Only) 21 cm 01/17/2018 10:00 AM Wound Width (cm) (Wound Team Only) 5 cm 01/17/2018 10:00 AM Wound Depth (cm) (Wound Team Only) 0.1 01/17/2018 10:00 AM Wound Volume (cm^3) (Wound Team Only) 10.5 cm^3 01/17/2018 10:00 AM Number of days: 52 Wounds (NOT for Pressure Injuries) 12/14/17 1748 Left Abdomen Surgical Incision (Active) 12/14/17 1748 Abdomen Wound Orientation: Left Wound Type: Surgical Incision Wound Type:: Wound Image 01/17/2018 10:00 AM Agree With My Assessment? Except 12/30/2017 2:45 PM Wound Base Assessment Moist;Slough;Yellow;Eschar 01/21/2018 12:15 PM Surrounding Skin Assessment Intact 01/21/2018 12:15 PM Wound Site Closure None 01/21/2018 12:15 PM Wound Drainage Amount Scant 01/21/2018 12:15 PM Wound Drainage Description Serous 01/21/2018 12:15 PM Wound Dressing Status Changed 01/21/2018 12:15 PM Wound Dressing and / or Treatment Abdominal Pad;Collagenase 01/21/2018 12:15 PM Wound Length (cm) (Wound Team Only) 21 cm 01/17/2018 10:00 AM Wound Width (cm) (Wound Team Only) 4 cm 01/17/2018 10:00 AM Wound Depth (cm) (Wound Team Only) 0.1 01/17/2018 10:00 AM Wound Volume (cm^3) (Wound Team Only) 8.4 cm^3 01/17/2018 10:00 AM Number of days: 38 Wounds (NOT for Pressure Injuries) 12/23/17 1345 Left Labia (Active) 12/23/17 1345 Labia Wound Orientation: Left Wound Type: Wound Type:: Wound Description (Comments): Agree With My Assessment? Yes 01/07/2018 9:55 PM Wound Base Assessment Red 01/21/2018 12:15 PM Surrounding Skin Assessment Edema;Erythema 01/21/2018 12:15 PM Wound Site Closure Open to Air 01/20/2018 11:00 PM Wound Drainage Amount None 01/21/2018 12:15 PM Wound Drainage Description Yellow;Gallardo 01/21/2018 12:15 PM Wound Dressing Status Changed 01/21/2018 12:15 PM Wound Dressing and / or Treatment A & D Ointment 01/21/2018 12:15 PM Wound Length (cm) (Wound Team Only) 7 cm 01/17/2018 10:00 AM Wound Width (cm) (Wound Team Only) 2.5 cm 01/17/2018 10:00 AM Wound Depth (cm) (Wound Team Only) 0.1 01/17/2018 10:00 AM Wound Volume (cm^3) (Wound Team Only) 1.75 cm^3 01/17/2018 10:00 AM Wound Healing % (Wound Team Only) 6.67 01/17/2018 10:00 AM Number of days: 29 Wounds (NOT for Pressure Injuries) 12/30/17 1002 Left;Anterior Surgical Incision stump (Active) 12/30/17 1002 Wound Orientation: Left;Anterior Wound Type: Surgical Incision Wound Type:: stump Wound Description (Comments): Wound Image 01/21/2018 12:15 PM Agree With My Assessment? Yes 01/06/2018 8:00 PM Wound Base Assessment Eschar;Dry 01/21/2018 12:15 PM Surrounding Skin Assessment Intact 01/21/2018 12:15 PM Wound Site Closure None 01/21/2018 12:15 PM Wound Drainage Amount None 01/21/2018 12:15 PM Wound Drainage Description Brown;Serosanguineous 01/12/2018 10:55 PM Wound Dressing Status Changed 01/21/2018 12:15 PM Wound Dressing and / or Treatment Abdominal Pad 01/21/2018 12:15 PM Wound Length (cm) (Wound Team Only) 28 cm 01/17/2018 10:00 AM Wound Width (cm) (Wound Team Only) 12.2 cm 01/17/2018 10:00 AM Wound Depth (cm) (Wound Team Only) 0.1 01/17/2018 10:00 AM Wound Volume (cm^3) (Wound Team Only) 34.16 cm^3 01/17/2018 10:00 AM Number of days: 22 Wounds (NOT for Pressure Injuries) 01/10/18 1100 Hip Surgical Incision (Active) 01/10/18 1100 Hip Wound Orientation: Wound Type: Surgical Incision Wound Type:: Wound Description (Comments): Wound Image 01/21/2018 12:15 PM Agree With My Assessment? Yes 01/10/2018 12:15 PM Wound Base Assessment Eschar;Moist 01/21/2018 12:15 PM Surrounding Skin Assessment Induration;Edema 01/21/2018 12:15 PM Wound Site Closure [place];Sutures 01/21/2018 12:15 PM Wound Drainage Amount Copious 01/21/2018 12:15 PM Wound Drainage Description Serosanguineous 01/21/2018 12:15 PM Wound Dressing Status Changed 01/21/2018 12:15 PM Wound Dressing and / or Treatment VAC sponge - black;VAC @ -125 mm/Hg;VAC tx: Continuous, t 01/21/2018 12:15 PM Wound Length (cm) (Wound Team Only) 7 cm 01/17/2018 10:00 AM Wound Width (cm) (Wound Team Only) 15 cm 01/17/2018 10:00 AM Wound Depth (cm) (Wound Team Only) 27 01/17/2018 10:00 AM Wound Volume (cm^3) (Wound Team Only) 2835 cm^3 01/17/2018 10:00 AM Wound Healing % (Wound Team Only) -21.15 01/17/2018 10:00 AM Tunneling in CM (Wound Team Only) 15 cm 01/17/2018 10:00 AM Tunnelling Location 3 01/17/2018 10:00 AM Number of days: 11 Pt seen today for wound vac change. Phots taken. spoke with plastic surgery resident to attempt to coordinate dressing change for them to see. unfortunately they were in the OR and not able to come at the time patient was available as well. Wound appear the same if not slightly worse then on Wednesday. Area of Dehiscence starting on posterior area as well now. Staple sin place along incision but ceci are starting to open and come out on their own. Area on left Labia is a concern as well. I feel that is has a bit more erythema to it today. Still yellow eschar in place with minimal drainage noted. Eschar on left hip and abdomen still adherent. Some bleeding noted around the edges of the wound where the wound vac is , but very minimal. Skin around wound vac is appearing to improved. Minimal blisters noted and it is not so red and macerated. RN states still increased copious amounts of drainage. During the day staff antisubmarine officer is changing the vac canister about every 3-4 hours since she is up moving with therapy. Plastics plans for possible surgery intervention and I have spoken to Dr Calhoun about this patient. Wound base cleaned with normal saline and gauze. Black vac foam applied and secured with adhesive drape. Dressing connected to wound vac with setting of - 125mmhg continuous. Next dressing change planned for 01/24/18 Procedure: Negative Wound Therapy Dressing Change Anesthesia Type: Not Applicable or None Provider(s) and Role: RN Negative Wound Pressure Device Type: KCI VAC Contact layer: no Wound dimension (length x width x depth, tunneling, undermining): see Thursday 01/18 Number of sponges in the wound prior to dressing change: 3 Number of sponges removed from the wound: 3 Type of sponge: Black foam Number of sponges placed in the wound: 3 Nneka Garsia RN Thank you Opal Garsia RN, BSN Wound /Ostomy Team Pager [phone] After Hours Wound/Ostomy team pager [phone] * Va Blair MD - 01/21/2018 2:09 PM CDT Formatting of this note may be different from the original. Endocrinology Hospital Follow Up Visit Today's Date: 01/21/2018 Admission Date: 01/14/2018 Assessment: 1. DM type 2 with stress hyperglycemia 2. Hypoglycemia A1c 6.5 , controlled [employer] regimen: Metformin thousand milligrams twice a day, jardiance 25 mg daily Hypoglycemic episodes on this regimen: None and not checking blood sugars at home Follows up with for diabetes management: Primary care physician at [facility] Diabetic-complications assessment: Retinopathy: None Peripheral neuropathy: Yes on treatment Autonomic neuropathy: None Nephropathy: None Macrovascular complications: None Risk factor assessment: Last lipid profile - None on file On ACEi/ARB: Yes On Statin: yes 3. 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 [employer] 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 daily TSH 2.1 this admission Forgets to take her levothyroxine sometime 4. Enteral Nutrition 5. Left leg amputation 6. Hyperlipidemia On lovastatin 7. Chondorsarcoma Pelvis s/p hemipelvectomy 8. Obesity Class III Recommendations: No change in insulin, as hypoglycemia was due to CorPak being dislodged, not due to too much insulin. Continue with Lantus 20 units QHS Continue with NovoLog 8 units postmeal Continue with MDCF x5 Continue NPH 32 units with nocturnal tube feeds - please hold NPH if tube feed are held and give at the start of tube feed TSH elevation is likely nonthyroidal in nature as TSH durng admit was 2.1. She will need repeat TFTS in 6-8 weeks Current TF regimen : Nutren 1.5, goal rate 75ml/hr x 6hr at night starting 2200 History of Present Illness Beata Kaiser is a 52 y.o. with hypoglycemia overnight, BG 50. She denies symptoms at that time. This was due to CorPak being dislodged during the enteral feedings. Blood glucose kristie significantly with juice. Estimated Creatinine Clearance: 107.6 mL/min (based on SCr of 0.55 mg/dL). Review of Systems The patient denies headache, abdominal pain, constipation, diarrhea, chest pain , nausea or vomiting. Medications Scheduled Meds: acetaminophen (TYLENOL) tablet 1,000 mg 1,000 mg Oral Q8H* aspirin chewable tablet 81 mg 81 mg Oral QDAY buPROPion (WELLBUTRIN) tablet 100 mg 100 mg Oral TID busPIRone (BUSPAR) tablet 30 mg 30 mg Oral BID collagenase (SANTYL) topical ointment Topical QDAY docusate (COLACE) capsule 100 mg 100 mg Oral BID ertapenem (INVANZ) IVP 1 g 1 g Intravenous Q24H* ferrous sulfate (FEOSOL, FEROSUL) tablet 325 mg 325 mg Oral TID w/ meals gabapentin (NEURONTIN) capsule 800 mg 800 mg Oral QID insulin aspart U-100 (NOVOLOG FLEXPEN) injection PEN 0-14 Units 0-14 Units Subcutaneous 5 X Day insulin aspart U-100 (NOVOLOG FLEXPEN) injection PEN 8 Units 8 Units Subcutaneous TID after meals insulin glargine (LANTUS SOLOSTAR, BASAGLAR) injection PEN 20 Units 20 Units Subcutaneous QHS insulin NPH (HUMULIN N KwikPen) injection PEN 32 Units 32 Units Subcutaneous QDAY(21) lactobacillus rhamnosus GG (CULTURELLE) 15 billion cell capsule 1 capsule 1 capsule Oral BID w/meals levothyroxine (SYNTHROID) tablet 175 mcg 175 mcg Oral QDAY before breakfast lidocaine (LIDODERM) 5 % topical patch 2 patch 2 patch Topical QDAY nortriptyline (PAMELOR) capsule 25 mg 25 mg Oral QHS oxyCODONE (ROXICODONE, OXY-IR) tablet 15 mg 15 mg Oral Once per day on Wed oxyCODONE SR (OXYCONTIN) tablet 10 mg 10 mg Oral BID pantop[address]ole DR (PROTONIX) tablet 40 mg 40 mg Oral QDAY(21) rivaroxaban (XARELTO) tablet 20 mg 20 mg Oral QDAY w/breakfast simvastatin (ZOCOR) tablet 20 mg 20 mg Oral QHS sodium chloride PF 0.9% flush 20 mL 20 mL Intravenous FLUSH TID vitamin A & D topical ointment Topical BID Continuous Infusions: PRN and Respiratory Meds:alum/mag hydroxide/simeth Q6H PRN, calcium carbonate Q4H PRN, milk of magnesia (CONC) Q4H PRN, ondansetron (ZOFRAN) IV Q6H PRN, oxyCODONE Q4H PRN, pancrelipase 20,000 Units/ sodium bicarbonate 650 mg(#) PRN ( Catalogue Librarian from Rx) Physical Examination Vital Signs: Last Vital Signs: 24 Hour Range BP: 124/62 (01/212) Temp: 36.7 C (98.1 F) (01/21 345) Pulse: 98 (01/22 1132) Respirations: 18 PER MINUTE (01/22 1132) SpO2: 93 % (01/21 345) O2 Delivery: None (Room Air) (01/21 345) BP: (113-124)/(53-62) Temp: [36.7 C (98.1 F)-38.1 C (100.6 F)] Pulse: [98-118] Respirations: [16 PER MINUTE-18 PER MINUTE] SpO2: [93 %-95 %] O2 Delivery: None (Room Air) General appearance: Sitting up in bed, NAD, OG + Resp: breathing comfortably Abd; Colostomy, normal active bowel sounds Ext: s/p left hemipelvectomy Neuro: Alert, oriented and cooperative Lab Review Point of Care Testing (Last 24 hours) Recent Labs 01/20/18 0712 01/20/18 1158 01/20/18 1700 01/20/18 2102 01/21/18 0302 01/21/18 0335 01/21/18 0628 01/21/18 1155 GLUPOC 169* 199* 164* 167* 50* 256* 174* 220* Recent Labs 01/19/18 0530 01/21/18 0620 NA 135* 137 K 4.5 4.3 CL 101 101 CO2 27 30 GAP 7 6 BUN 13 16 CR 0.51 0.55 GLU 250* 174* CA 8.5 8.7 Recent Labs 01/19/18 0530 01/21/18 0620 WBC 10.9 11.0 HGB 8.4* 8.5* HCT 24.5* 24.5* PLTCT 414* 421* Estimated Creatinine Clearance: 107.6 mL/min (based on SCr of 0.55 mg/dL). Vitals: 01/19/18 0747 01/20/18 0600 01/21/18 0724 Weight: 95.1 kg (209 lb 10.5 oz) 90.5 kg (199 lb 8.3 oz) 102.6 kg (226 lb 3.1 oz ) Thyroid Studies Lab Results Component Value Date/Time TSH 16.790 (H) 01/09/2018 01:40 PM No results found for: FREET3, [id number], THYBINDGLB Va Blair MD p 0410 * Ruth Allen MD - 01/21/2018 10:43 AM CDT Formatting of this note may be different from the original. ATTESTATION I personally performed the banuelos portions of the E/M visit, discussed case with resident and concur with resident documentation of history, physical exam, assessment, and treatment plan unless otherwise noted. Low grade temp o/n. Patient denies any new symptoms. Will make Tylenol prn to not mask any fevers. She did pull her NGT out o/n, replaced today. Wound vac change today. Plastics evaluating wound, may need further surgery. Monitor closely. Has made some good functional progress this week, anticipate that will continue towards a home discharge. Patient remains medically stable to participate in IRF program. Staff name: Ruth Allen MD Date: 01/21/2018 Physical Medicine & Rehabilitation Progress Note Today's Date: 01/21/2018 Admission Date: 01/14/2018 LOS: 7 days Insurance: [facility] Principal Problem: Left hip amputation status Active Problems: Chondrosarcoma (HCC) Acute blood loss as cause of postoperative anemia Depression Anxiety DM (diabetes mellitus) (HCC) 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 Chronic pain Post-op pain Bacteremia Amputated left leg (HCC) Candiduria Assessment/Plan: Beata Lema a 52 y.o.female[facility] the following issues : 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 Goals: household mobility, at wheelchair level, min-mod A Tentative discharge date: 02/02/18 Recommended therapy after discharge: home health OT/PT Recommended equipment: Slideboard and wheelchair, anticipating ramp Daily Functional Update: Transfers Device Sit to Stand Transfer: Assistive Device: Sliding Board (01/20/2018 10:00 AM) No Data Recorded Gait Device Assist Required Distance Gait: Assistive Device: IV Pole (12/01/2017 11:00 AM) No Data Recorded Gait Distance: 400 feet (12/01/2017 11:00 AM) Toileting Assist Required Equipment Toilet Transfer Toileting Assist: Total Assist (01/06/2018 1:00 PM) No Data Recorded No Data Recorded Dressing Lower Body LE Dressing Assist: Total Assist (01/20/2018 9:00 AM) Chrondrosarcoma s/p hemipelvectomy - 12/14/17: left hemipelvectomy, jamil sacrectomy >wound vac in place. Changes M/W/F by wound vac team. PO 15mg oxycodone MWF for WV changes + lidocaine into sponge during acute hospitalization - wean off IV pain meds as able >Change dressings prn with dry sterile gauze and hypafix tape >vitamin A &D for labia wound, collagenase for left lower abdomen wound healing >Orhto requesting plastic surgery consult regarding any intervention for abdoulaye- incisional wounds Post-op pain in setting of chronic pain Phantom limb pain, neuropathic pain >Tylenol, oxycontin 10mg BID and oxycodone 20mg q3h prn. Lidoderm patch prn. > nortriptyline 25mg HS > Continue gabapentin 800mg Q6h s/p diverting colostomy - Stool saturating wound. Diverting colostomy done 12/30 >wound/ostomy consulted Bladder injury, recent repair - bladder and urethral injuries during hemipelvectomy on 12/14/17 - underwent cystoscopy with left ureteral stent insertion, Bladder neck repair, Urethroplasty and repair of urethral injury, Vaginal closure >continue melchor catheter > Urology f/u after rehab discharge Chest lesions (metastases?) - 11/26/17 CT: few small pulmonary nodules. >plan is to resect the masses in the chest later >CT chest scheduled for 02/08 with f/u with CTS surgery GBS bacteremia w/ sepsis due to left hip wound - Fever and leukocytosis began 12/20/17, Bcx 1/2 positive for GBS on 12/23 - CT pelvis 12/25 showed ill-defined fluid and air along the anterior margin of the surgical site away from the drain tip. However, no discrete drainable fluid collection is noted. - OR 01/10 for wound eval - no sign of infection - posterior wound starting to granulate, WV replaced; WV changed 01/12, wound clean with blood present, no purulence >per ID recs, continue ertapenem 1 gram daily stop date 01/23 Candiduria - Treating given indwelling melchor and inability to remove melchor d/t recent bladder repair > micafungin d/c'ed on 01/17 DVT - 11/30/17 IVC filter for DVT within the external iliac vein >cont Xarelto ABLA - Hgb 7.8 on admission to rehab - no concern for current bleed at this time >monitor labs > 01/15: Hgb 6.5, transfused 1unit pRBCs T2DM - A1c 6.5%, controlled - CAMP TENDER regimen: Metformin thousand milligrams twice a day, [id number] mg daily >Continue with Lantus 22 units QHS, novolog 8u postmeal, MDCF 5x per day >Continue NPH 30 units with nocturnal tube feeds - please hold NPH if tube feed are held and give at the start of tube feed 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 - CAMP TENDER 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 daily - TSH 2.1 this admission >continue CAMP TENDER levothyroxine >She will need repeat thyroid function tests in 6-8 weeks MDD CLAUDIA Adjustment disorder with mixed anxiety and depressed mood > continue CAMP TENDER Wellbutrin and buspar Nutrition - 01/17 albumin 2.6, Prealbumin 13.0, likely check Q7days >Current diet: diabeticand nocturnal tube feeds - Nutren 1.5 from 2200- 0400 at 75mL/hr through Corpakwith3 protein packs per day, [id number] q4h > Case Packer And Sealer consult and d/c tube feeds once eating to meet needs > weekly prealbumin HLD: holding CAMP TENDER statin Insomnia: nortriptyline 25mg qhs Skin:There are no pressure sores currently. Bowel:ostomy Bladder:Cointinue melchor for now Mental Health:consult neuropsychology to provide support / counseling DVT Prophylaxis:Xarelto, will discharge on it Subjective Overnight Pt pulled her corpak. Pt stated she was having a dream and woke up and her corpak was pulled almost all the way out. Will replace today. No other questions/concerns when seen. Objective Vital Signs: Last Filed Vital Signs: 24 Hour Range BP: 114/57 (01/21 345) Temp: 36.7 C (98.1 F) (01/21 345) Pulse: 109 (01/21 345) Respirations: 18 PER MINUTE (01/21 345) SpO2: 93 % (01/21 345) O2 Delivery: None (Room Air) (01/21 345) BP: (113-114)/(53-57) Temp: [36.7 C (98.1 F)-38.1 C (100.6 F)] Pulse: [109-118] Respirations: [16 PER MINUTE-18 PER MINUTE] SpO2: [93 %-95 %] O2 Delivery: None (Room Air) Intensity Pain Scale 0-10 (Pain 1): 5 (01/21/18 0837) Vitals: 01/19/18 0747 01/20/18 0600 01/21/18 0724 Weight: 95.1 kg (209 lb 10.5 oz) 90.5 kg (199 lb 8.3 oz) 102.6 kg (226 lb 3.1 oz ) Intake/Output Summary: (Last 24 hours) Intake/Output Summary (Last 24 hours) at 01/21/18 1043 Last data filed at 01/21/18 0915 Gross per 24 hour Intake 1209 ml Output 4275 ml Net -3066 ml Stool Occurrence: 1 Oral Diet Order: Diabetic 6455-0300 Kcal/day (60 g Carb/meal, 30 g Carb/HS snack ) Last BM Date: 01/21/18 Lab: Results for orders placed or performed during the hospital encounter of (from the past 24 hour(s)) POC GLUCOSE Collection Time: 01/20/18 11:58 AM # # Low-High Glucose, POC 199 (H) 70 - 100 MG/DL POC GLUCOSE Collection Time: 01/20/18 5:00 PM # # Low-High Glucose, POC 164 (H) 70 - 100 MG/DL POC GLUCOSE Collection Time: 01/20/18 9:02 PM # # Low-High Glucose, POC 167 (H) 70 - 100 MG/DL POC GLUCOSE Collection Time: 01/21/18 3:02 AM # # Low-High Glucose, POC 50 (L) 70 - 100 MG/DL POC GLUCOSE Collection Time: 01/21/18 3:35 AM # # Low-High Glucose, POC 256 (H) 70 - 100 MG/DL BASIC METABOLIC PANEL CELLULAR THERAPEUTICS Collection Time: 01/21/18 6:20 AM # # Low-High Sodium 137 137 - 147 MMOL/L Potassium 4.3 3.5 - 5.1 MMOL/L Chloride 101 98 - 110 MMOL/L CO2 30 21 - 30 MMOL/L Anion Gap 6 3 - 12 Glucose 174 (H) 70 - 100 MG/DL Blood Urea Nitrogen 16 7 - 25 MG/DL Creatinine 0.55 0.4 - 1.00 MG/DL Calcium 8.7 8.5 - 10.6 MG/DL eGFR Non >60 >60 mL/min eGFR >60 >60 mL/min CBC CELLULAR THERAPEUTICS Collection Time: 01/21/18 6:20 AM # # Low-High White Blood Cells 11.0 4.5 - 11.0 K/UL RBC 3.01 (L) 4.0 - 5.0 M/UL Hemoglobin 8.5 (L) 12.0 - 15.0 GM/DL Hematocrit 24.5 (L) 36 - 45 % MCV 81.4 80 - 100 FL MCH 28.1 26 - 34 PG MCHC 34.5 32.0 - 36.0 G/DL RDW 17.4 (H) 11 - 15 % Platelet Count 421 (H) 150 - 400 K/UL MPV 6.9 (L) 7 - 11 FL POC GLUCOSE Collection Time: 01/21/18 6:28 AM # # Low-High Glucose, POC 174 (H) 70 - 100 MG/DL Scheduled Meds: acetaminophen (TYLENOL) tablet 1,000 mg 1,000 mg Oral Q8H* aspirin chewable tablet 81 mg 81 mg Oral QDAY buPROPion (WELLBUTRIN) tablet 100 mg 100 mg Oral TID busPIRone (BUSPAR) tablet 30 mg 30 mg Oral BID collagenase (SANTYL) topical ointment Topical QDAY docusate (COLACE) capsule 100 mg 100 mg Oral BID ertapenem (INVANZ) IVP 1 g 1 g Intravenous Q24H* ferrous sulfate (FEOSOL, FEROSUL) tablet 325 mg 325 mg Oral TID w/ meals gabapentin (NEURONTIN) capsule 800 mg 800 mg Oral QID insulin aspart U-100 (NOVOLOG FLEXPEN) injection PEN 0-14 Units 0-14 Units Subcutaneous 5 X Day insulin aspart U-100 (NOVOLOG FLEXPEN) injection PEN 8 Units 8 Units Subcutaneous TID after meals insulin glargine (LANTUS SOLOSTAR, BASAGLAR) injection PEN 20 Units 20 Units Subcutaneous QHS insulin NPH (HUMULIN N KwikPen) injection PEN 32 Units 32 Units Subcutaneous QDAY(21) lactobacillus rhamnosus GG (CULTURELLE) 15 billion cell capsule 1 capsule 1 capsule Oral BID w/meals levothyroxine (SYNTHROID) tablet 175 mcg 175 mcg Oral QDAY before breakfast lidocaine (LIDODERM) 5 % topical patch 2 patch 2 patch Topical QDAY nortriptyline (PAMELOR) capsule 25 mg 25 mg Oral QHS oxyCODONE (ROXICODONE, OXY-IR) tablet 15 mg 15 mg Oral Once per day on Wed oxyCODONE SR (OXYCONTIN) tablet 10 mg 10 mg Oral BID pantoprazole DR (PROTONIX) tablet 40 mg 40 mg Oral QDAY(21) rivaroxaban (XARELTO) tablet 20 mg 20 mg Oral QDAY w/breakfast simvastatin (ZOCOR) tablet 20 mg 20 mg Oral QHS sodium chloride PF 0.9% flush 20 mL 20 mL Intravenous FLUSH TID vitamin A & D topical ointment Topical BID Continuous Infusions: PRN and Respiratory Meds:alum/mag hydroxide/simeth Q6H PRN, calcium carbonate Q4H PRN, milk of magnesia (CONC) Q4H PRN, ondansetron (ZOFRAN) IV Q6H PRN, oxyCODONE Q4H PRN, pancrelipase 20,000 Units/ sodium bicarbonate 650 mg(#) PRN ( Catalogue Librarian from Rx) Physical Exam VS: BP 114/57 (BP Source: Arm, Right) | Pulse 109 | Temp 36.7 C (98.1 F) | Ht 160 cm (63") | Wt 102.6 kg (226 lb 3.1 oz) | LMP 01/14/2013 | SpO2 93% | BMI 40.07 kg/m Gen: awake, alert, NAD, corpak in place CV: RRR, no murmur Pulm: CTAB, no w/r Abd: nondistended, nontender Extremities: mild edema rle, s/p hemipelvectomy on left with dressings and wound vac in place Skin: warm, dry Neuro: alert, oriented, speech fluent and clear, eomi, at least antigravity strength in remaining 3 extremities Therapy Notes & Labs Reviewed. Ravi Pride DO Pager [phone] * Skyler Enriquez RN - 01/21/2018 10:09 AM CDT I have reviewed the notes, assessment, and/or procedures performed by Sangita Valdez RN and concur with her documentation unless otherwise noted. * Suzette Webster RN - 01/21/2018 6:05 AM CDT notified at this time that at approximately 0320 while giving pt juice for low blood sugar, it was observed that her corpak had dislodged a significant amount. Pt stated that she thinks she remembers dreaming about removing with the securing dressing. Dressing is not on pt nose. Tube secured where it is with tape, tube feed stopped at this time, charge nurse notified at that time who suggested notifying physician in the morning. Pt doing fine at this time, alert and oriented x4, blood sugar did greatly improve with 4oz of orange juice. * Suzette Webster RN - 01/21/2018 3:[address] Pride notified of pt blood glucose level of 50 when he called unit concerning another patient at this time. Agree with physician plan of giving pt 4oz of juice and rechecking in 15 minutes. Pt alert and oriented, denies any abnormal symptoms at this time. 4oz orange juice given to patient who drank this promptly without problem. * Darlene Garcia RN - 01/20/2018 6:00 PM CDT I have reviewed the notes, assessment, and/or procedures performed by Jaclyn Yang and concur with her/his documentation unless otherwise noted. * Ruth Allen MD - 01/20/2018 2:06 PM CDT Formatting of this note may be different from the original. ATTESTATION I personally performed the banuelos portions of the E/M visit, discussed case with resident and concur with resident documentation of history, physical exam, assessment, and treatment plan unless otherwise noted. Labs and VS reviewed and stable. Patient wishing to try oral pain medications with next wound vac change. Wound team and Ortho with concerns about abdoulaye-wound, Plastics consult pending. Patient observed doing bed bath today with OT. Patient remains medically stable to participate in IRF program. Staff name: Ruth Allen MD Date: 01/20/2018 Physical Medicine & Rehabilitation Progress Note Today's Date: 01/19/2018 Admission Date: 01/14/2018 LOS: 5 days Insurance: [facility] Principal Problem: Left hip amputation status Active Problems: Chondrosarcoma (HCC) Acute blood loss as cause of postoperative anemia Depression Anxiety DM (diabetes mellitus) (HCC) 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 Chronic pain Post-op pain Bacteremia Amputated left leg (HCC) Candiduria Assessment/Plan: Beata Lema a 52 y.o.femalead[facility]with the following issues : 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 Goals: household mobility, at wheelchair level, min-mod A Tentative discharge date: 02/02/18 Recommended therapy after discharge: home health OT/PT Recommended equipment: Slideboard and wheelchair, anticipating ramp Daily Functional Update: Transfers Device Sit to Stand Transfer: Assistive Device: Mechanical Lift;Sliding Board (01/19/2018 4:00 PM) No Data Recorded Gait Device Assist Required Distance Gait: Assistive Device: IV Pole (12/01/2017 11:00 AM) No Data Recorded Gait Distance: 400 feet (12/01/2017 11:00 AM) Toileting Assist Required Equipment Toilet Transfer Toileting Assist: Total Assist (01/06/2018 1:00 PM) No Data Recorded No Data Recorded Dressing Lower Body LE Dressing Assist: Maximum Assist (01/15/2018 8:00 AM) Chrondrosarcoma s/p hemipelvectomy - 12/14/17: left hemipelvectomy, jamil sacrectomy >wound vac in place. Changes M/W/F by wound vac team. PO 15mg oxycodone MWF for WV changes + lidocaine into sponge during acute hospitalization - wean off IV pain meds as able >Change dressings prn with dry sterile gauze and hypafix tape >vitamin A &D for labia wound, collagenase for left lower abdomen wound healing >Orhto requesting plastic surgery consult regarding any intervention for abdoulaye- incisional wounds Post-op pain in setting of chronic pain Phantom limb pain, neuropathic pain >scheduled Tylenol, oxycontin 10mg BID and oxycodone 20mg q3h prn. Lidoderm patch prn. > nortriptyline 25mg HS > Continue gabapentin 800mg Q6h s/p diverting colostomy - Stool saturating wound. Diverting colostomy done 12/30 >wound/ostomy consulted Bladder injury, recent repair - bladder and urethral injuries during hemipelvectomy on 12/14/17 - underwent cystoscopy with left ureteral stent insertion, Bladder neck repair, Urethroplasty and repair of urethral injury, Vaginal closure >continue melchor catheter > Urology f/u after rehab discharge Chest lesions (metastases?) - 11/26/17 CT: few small pulmonary nodules. >plan is to resect the masses in the chest later >CT chest scheduled for 02/08 with f/u with CTS surgery GBS bacteremia w/ sepsis due to left hip wound - Fever and leukocytosis began 12/20/17, Bcx 1/2 positive for GBS on 12/23 - CT pelvis 12/25 showed ill-defined fluid and air along the anterior margin of the surgical site away from the drain tip. However, no discrete drainable fluid collection is noted. - OR 01/10 for wound eval - no sign of infection - posterior wound starting to granulate, WV replaced; WV changed 01/12, wound clean with blood present, no purulence >per ID recs, continue ertapenem 1 gram daily stop date 01/23 Candiduria - Treating given indwelling melchor and inability to remove melchor d/t recent bladder repair > micafungin d/c'ed on 01/17 DVT - 11/30/17 IVC filter for DVT within the external iliac vein >cont Xarelto ABLA - Hgb 7.8 on admission to rehab - no concern for current bleed at this time >monitor labs > 01/15: Hgb 6.5, transfused 1unit pRBCs T2DM - A1c 6.5%, controlled - CAMP TENDER regimen: Metformin thousand milligrams twice a day, [id number] mg daily >Continue with Lantus 22 units QHS, novolog 8u postmeal, MDCF 5x per day >Continue NPH 30 units with nocturnal tube feeds - please hold NPH if tube feed are held and give at the start of tube feed 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 - CAMP TENDER 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 daily - TSH 2.1 this admission >continue CAMP TENDER levothyroxine >She will need repeat thyroid function tests in 6-8 weeks MDD CLAUDIA Adjustment disorder with mixed anxiety and depressed mood > continue CAMP TENDER Wellbutrin and buspar Nutrition - 01/17 albumin 2.6, Prealbumin 13.0, likely check Q7days >Current diet: diabeticand nocturnal tube feeds - Nutren 1.5 from 2200- 0400 at 75mL/hr through [employer] protein packs per day, [id number] q4h > Case Packer And Sealer consult and d/c tube feeds once eating to meet needs > weekly prealbumin HLD: holding CAMP TENDER statin Insomnia: nortriptyline 25mg qhs Skin:There are no pressure sores currently. Bowel:ostomy Bladder:Cointinue melchor for now Mental Health:consult neuropsychology to provide support / counseling DVT Prophylaxis:Xarelto, will discharge on it Subjective No issues/events overnight. Pt stated she had chest discomfort yesterday after receiving IV dilaudid for her wound vac change. Pt would like to try different pain medication around time of wound vac change. Objective Vital Signs: Last Filed Vital Signs: 24 Hour Range BP: 107/56 (01/19 1553) Temp: 37 C (98.6 F) (01/19 1553) Pulse: 113 (01/19 1553) Respirations: 16 PER MINUTE (01/19 1553) SpO2: 97 % (05/02 1553) O2 Delivery: None (Room Air) (01/19 1553) BP: (107-112)/(54-56) Temp: [37 C (98.6 F)] Pulse: [108-113] Respirations: [16 PER MINUTE-17 PER MINUTE] SpO2: [94 %-97 %] O2 Delivery: None (Room Air) Intensity Pain Scale 0-10 (Pain 1): 7 (01/19/182054) Vitals: 01/17/18 0520 01/18/18 0551 01/19/18 0747 Weight: 95 kg (209 lb 7 oz) 94.6 kg (208 lb 9.2 oz) 95.1 kg (209 lb 10.5 oz) Intake/Output Summary: (Last 24 hours) Intake/Output Summary (Last 24 hours) at 01/19/182146 Last data filed at 01/19/182112 Gross per 24 hour Intake 1925 ml Output 5100 ml Net -3175 ml Stool Occurrence: 1 Oral Diet Order: Diabetic 3607-2804 Kcal/day (60 g Carb/meal, 30 g Carb/HS snack ) Last BM Date: 01/19/18 Lab: Results for orders placed or performed during the hospital encounter of (from the past 24 hour(s)) POC GLUCOSE Collection Time: 01/19/18 3:17 AM # # Low-High Glucose, POC 218 (H) 70 - 100 MG/DL CBC CELLULAR THERAPEUTICS Collection Time: 01/19/18 5:30 AM # # Low-High White Blood Cells 10.9 4.5 - 11.0 K/UL RBC 2.95 (L) 4.0 - 5.0 M/UL Hemoglobin 8.4 (L) 12.0 - 15.0 GM/DL Hematocrit 24.5 (L) 36 - 45 % MCV 83.0 80 - 100 FL MCH 28.5 26 - 34 PG MCHC 34.3 32.0 - 36.0 G/DL RDW 16.8 (H) 11 - 15 % Platelet Count 414 (H) 150 - 400 K/UL MPV 6.6 (L) 7 - 11 FL BASIC METABOLIC PANEL CELLULAR THERAPEUTICS Collection Time: 01/19/18 5:30 AM # # Low-High Sodium 135 (L) 137 - 147 MMOL/L Potassium 4.5 3.5 - 5.1 MMOL/L Chloride 101 98 - 110 MMOL/L CO2 27 21 - 30 MMOL/L Anion Gap 7 3 - 12 Glucose 250 (H) 70 - 100 MG/DL Blood Urea Nitrogen 13 7 - 25 MG/DL Creatinine 0.51 0.4 - 1.00 MG/DL Calcium 8.5 8.5 - 10.6 MG/DL eGFR Non >60 >60 mL/min eGFR >60 >60 mL/min POC GLUCOSE Collection Time: 01/19/18 7:15 AM # # Low-High Glucose, POC 233 (H) 70 - 100 MG/DL POC GLUCOSE Collection Time: 01/19/18 11:53 AM # # Low-High Glucose, POC 194 (H) 70 - 100 MG/DL POC GLUCOSE Collection Time: 01/19/18 4:56 PM # # Low-High Glucose, POC 109 (H) 70 - 100 MG/DL POC GLUCOSE Collection Time: 01/19/18 9:20 PM # # Low-High Glucose, POC 118 (H) 70 - 100 MG/DL Scheduled Meds: acetaminophen (TYLENOL) tablet 1,000 mg 1,000 mg Oral Q8H* aspirin chewable tablet 81 mg 81 mg Oral QDAY buPROPion (WELLBUTRIN) tablet 100 mg 100 mg Oral TID busPIRone (BUSPAR) tablet 30 mg 30 mg Oral BID collagenase (SANTYL) topical ointment Topical QDAY docusate (COLACE) capsule 100 mg 100 mg Oral BID ertapenem (INVANZ) IVP 1 g 1 g Intravenous Q24H* ferrous sulfate (FEOSOL, FEROSUL) tablet 325 mg 325 mg Oral TID w/ meals gabapentin (NEURONTIN) capsule 800 mg 800 mg Oral QID HYDROmorphone injection (DILAUDID) injection 1 mg 1 mg Intravenous Once per day on Wed insulin aspart U-100 (NOVOLOG FLEXPEN) injection PEN 0-14 Units 0-14 Units Subcutaneous 5 X Day insulin aspart U-100 (NOVOLOG FLEXPEN) injection PEN 8 Units 8 Units Subcutaneous TID after meals insulin glargine (LANTUS SOLOSTAR, BASAGLAR) injection PEN 20 Units 20 Units Subcutaneous QHS insulin NPH (HUMULIN N KwikPen) injection PEN 30 Units 30 Units Subcutaneous QDAY(21) lactobacillus rhamnosus GG (CULTURELLE) 15 billion cell capsule 1 capsule 1 capsule Oral BID w/meals levothyroxine (SYNTHROID) tablet 175 mcg 175 mcg Oral QDAY before breakfast lidocaine (LIDODERM) 5 % topical patch 2 patch 2 patch Topical QDAY nortriptyline (PAMELOR) capsule 25 mg 25 mg Oral QHS oxyCODONE SR (OXYCONTIN) tablet 10 mg 10 [address] Oral BID pant[address]ole [address] (PROTONIX) tablet 40 mg 40 mg Oral QDAY(21) rivaroxaban (XARELTO) tablet 20 mg 20 mg Oral QDAY w/breakfast simvastatin (ZOCOR) tablet 20 mg 20 mg Oral QHS sodium chloride PF 0.9% flush 5-10 mL 5-10 mL Intravenous FLUSH TID vitamin A & D topical ointment Topical BID Continuous Infusions: PRN and Respiratory Meds:alum/mag hydroxide/simeth Q6H PRN, calcium carbonate Q4H PRN, milk of magnesia (CONC) Q4H PRN, ondansetron (ZOFRAN) IV Q6H PRN, oxyCODONE Q4H PRN, pancrelipase 20,000 Units/ sodium bicarbonate 650 mg(#) PRN ( Catalogue Librarian from Rx) Physical Exam VS: BP 107/56 (BP Source: Arm, Left) | Pulse 113 | Temp 37 C (98.6 F) | Ht 160 cm (63") | Wt 95.1 kg (209 lb 10.5 oz) | LMP 01/14/2013 | SpO2 97% | BMI 37.14 kg/m Gen: awake, alert, NAD, corpak in place CV: RRR, no murmur Pulm: CTAB, no w/r Abd: nondistended, nontender Extremities: mild edema rle, s/p hemipelvectomy on left with dressings and wound vac in place Skin: warm, dry Neuro: alert, oriented, speech fluent and clear, eomi, at least antigravity strength in remaining 3 extremities Therapy Notes & Labs Reviewed. Ravi Pride DO Pager [phone] * Va Blair MD - 01/20/2018 1:50 PM CDT Formatting of this note may be different from the original. [facility] Follow Up Visit Today's Date: 01/20/2018 Admission Date: 01/14/2018 Assessment: 1. DM type 2 with stress hyperglycemia A1c 6.5 , controlled CAMP TENDER regimen: Metformin thousand milligrams twice a day, jardiance 25 mg daily Hypoglycemic episodes on this regimen: None and not checking blood sugars at home Follows up with for diabetes management: Primary care physician at [facility] Diabetic-complications assessment: Retinopathy: None Peripheral neuropathy: Yes on treatment Autonomic neuropathy: None Nephropathy: None Macrovascular complications: None Risk factor assessment: Last lipid profile - None on file On ACEi/ARB: Yes On Statin: yes 2. 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 CAMP TENDER 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 daily TSH 2.1 this admission Forgets to take her levothyroxine sometime 3. Enteral Nutrition 4. Left leg amputation 5. Hyperlipidemia On lovastatin 6. Chondorsarcoma Pelvis s/p hemipelvectomy 7. Obesity Class III Recommendations: Continue with Lantus 20 units QHS Continue with NovoLog 8 units postmeal Continue with MDCF x5 Increase NPH to 32 units with nocturnal tube feeds - please hold NPH if tube feed are held and give at the start of tube feed TSH elevation is likely nonthyroidal in nature as TSH durng admit was 2.1. She will need repeat TFTS in 6-8 weeks Current TF regimen : Nutren 1.5, goal rate 75ml/hr x 6hr at night starting 2200 History of Present Illness Beata Kaiser is a 52 y.o. he feels that she is eating fair. She continues to get enteral feeds at night. Blood sugar over the last 24 hours, 109 1993. Fasting glucose has been above goal for the past 2 mornings. Estimated Creatinine Clearance: 100.3 mL/min (based on SCr of 0.51 mg/dL). Review of Systems The patient denies headache, abdominal pain, constipation, diarrhea, chest pain , nausea or vomiting. Medications Scheduled Meds: acetaminophen (TYLENOL) tablet 1,000 mg 1,000 mg Oral Q8H* aspirin chewable tablet 81 mg 81 mg Oral QDAY buPROPion (WELLBUTRIN) tablet 100 mg 100 mg Oral TID busPIRone (BUSPAR) tablet 30 mg 30 mg Oral BID collagenase (SANTYL) topical ointment Topical QDAY docusate (COLACE) capsule 100 mg 100 mg Oral BID ertapenem (INVANZ) IVP 1 g 1 g Intravenous Q24H* ferrous sulfate (FEOSOL, FEROSUL) tablet 325 mg 325 mg Oral TID w/ meals gabapentin (NEURONTIN) capsule 800 mg 800 mg Oral QID HYDROmorphone injection (DILAUDID) injection 1 mg 1 mg Intravenous Once per day on Wed insulin aspart U-100 (NOVOLOG FLEXPEN) injection PEN 0-14 Units 0-14 Units Subcutaneous 5 X Day insulin aspart U-100 (NOVOLOG FLEXPEN) injection PEN 8 Units 8 Units Subcutaneous TID after meals insulin glargine (LANTUS SOLOSTAR, BASAGLAR) injection PEN 20 Units 20 Units Subcutaneous QHS insulin NPH (HUMULIN N KwikPen) injection PEN 30 Units 30 Units Subcutaneous QDAY(21) lactobacillus rhamnosus GG (CULTURELLE) 15 billion cell capsule 1 capsule 1 capsule Oral BID w/meals levothyroxine (SYNTHROID) tablet 175 mcg 175 mcg Oral QDAY before breakfast lidocaine (LIDODERM) 5 % topical patch 2 patch 2 patch Topical QDAY nortriptyline (PAMELOR) capsule 25 mg 25 mg Oral QHS oxyCODONE SR (OXYCONTIN) tablet 10 mg 10 mg Oral BID pantoprazole DR (PROTONIX) tablet 40 mg 40 mg Oral QDAY(21) rivaroxaban (XARELTO) tablet 20 mg 20 mg Oral QDAY w/breakfast simvastatin (ZOCOR) tablet 20 mg 20 mg Oral QHS sodium chloride PF 0.9% flush 20 mL 20 mL Intravenous FLUSH TID vitamin A & D topical ointment Topical BID Continuous Infusions: PRN and Respiratory Meds:alum/mag hydroxide/simeth Q6H PRN, calcium carbonate Q4H PRN, milk of magnesia (CONC) Q4H PRN, ondansetron (ZOFRAN) IV Q6H PRN, oxyCODONE Q4H PRN, pancrelipase 20,000 Units/ sodium bicarbonate 650 mg(#) PRN ( Catalogue Librarian from Rx) Physical Examination Vital Signs: Last Vital Signs: 24 Hour Range BP: 100/55 (01/20 325) Temp: 37.3 C (99.1 F) (01/20 325) Pulse: 108 (01/20 325) Respirations: 18 PER MINUTE (01/20 325) SpO2: 93 % (01/20 325) O2 Delivery: None (Room Air) (05/03 0325) BP: (100-107)/(55-56) Temp: [36.7 C (98 F)-37.3 C (99.1 F)] Pulse: [108-113] Respirations: [16 PER MINUTE-18 PER MINUTE] SpO2: [93 %-97 %] O2 Delivery: None (Room Air) General appearance: Sitting up in bed, NAD, OG + Resp: breathing comfortably Abd; Colostomy, normal active bowel sounds Ext: s/p left hemipelvectomy Neuro: Alert, oriented and cooperative Lab Review Point of Care Testing (Last 24 hours) Recent Labs 01/19/18 0715 01/19/18 1153 01/19/18 1656 01/19/18 2120 01/20/18 0057 01/20/18 0325 01/20/18 0712 01/20/18 1158 GLUPOC 233* 194* 109* 118* 160* 171* 169* 199* Recent Labs 01/18/18 0601 01/19/18 0530 NA 135* 135* K 4.2 4.5 CL 100 101 CO2 29 27 GAP 6 7 BUN 15 13 CR 0.51 0.51 GLU 191* 250* CA 8.6 8.5 Recent Labs 01/18/18 0601 01/19/18 0530 WBC 10.9 10.9 HGB 8.7* 8.4* HCT 26.4* 24.5* PLTCT 379 414* Estimated Creatinine Clearance: 100.3 mL/min (based on SCr of 0.51 mg/dL). Vitals: 01/18/18 0551 01/19/18 0747 01/20/18 0600 Weight: 94.6 kg (208 lb 9.2 oz) 95.1 kg (209 lb 10.5 oz) 90.5 kg (199 lb 8.3 oz ) Thyroid Studies Lab Results Component Value Date/Time TSH 16.790 (H) 01/09/2018 01:40 PM No results found for: FREET3, Q7FSEUNQU, THYBINDGLB Va Blair MD p 0410 * Cherri Kinney, PhD - 01/20/2018 12:36 PM CDT [id number] Pt was seen for cog screening, with her son-in-law and daughter present, with pt's consent. Pt was alert, oriented, and open/responsive to inquiry. The utility of testing was discussed and pt agreed to participate. Pt was cooperative and appeared to put forth adequate effort. Speech was WNL and thought processes were connected and logical to content of conversation. Eye contact was within social norms and non-verbal behaviors were appropriate to context. Mood and affect were congruent and euthymic, and pt reported mood to be "okay." The [place] Cognitive Assessment (MoCA) was administered and indicated no significant cognitive impairment (MoCA=27/30) with errors in sentence repetition , verbal fluency, and delayed recall (4/5; pt improved with category cuing). Screening feedback was provided to pt and pt was open and receptive to feedback. I discussed with pt the purpose and utility of mood screening, which she was open and agreeable to this service returning to administer. Pts progress, utilization of coping skills, and goals for rehab therapies were supported. Will continue to follow and assess cognition, mood, pain management, and coping. Recommendations: As pt's ortho team came at end of follow-up, will return to administer mood screens. Halima Miranda, Ph.D. Neurorehabilitation Psychology Postdoctoral Fellow Pager #: [phone] ATTESTATION: I discussed this session and pt's care with the fellow and agree with her note above. We will continue to follow prn until [facility] d/c. Warren Kinney, PhD, ABPP * Adrienne Zarate MD - 01/20/2018 12:28 PM CDT Formatting of this note may be different from the original. Subjective: No acute events overnight. Pain controlled. Tolerating diet although only getting approx 50% of calories from diet. Nares irritated by corpak tube. Objective: Blood pressure 100/55, pulse 108, temperature 37.3 C (99.1 F), height 160 cm (63"), weight 90.5 kg (199 lb 8.3 oz), last menstrual period 01/14, SpO2 93 %. General: AAOx3, NAD Cardiac: tachycardic Respirations: Unlabored Abdomen: soft, nd, induration about the distal pannus around wounds with scabbing and underlying granulation tissue Extremities: Dressings c/d/i, wound vac holding suction, multiple surrounding eschars and wounds in various stages of healing. WV: 1300 ml/24 hrs No results for input(s): PTT, INR in the last 72 hours. 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 -Management and pain control per rehab -Recommend continue melchor catheter -Xarelto for DVT -MWF WV changes with wound team -Recommend ongoing psychology visits per patient request for coping strategies -Compression shorts throughout day as able -Surgical dressings may be changed PRN with dry sterile gauze and hypafix tape -Other wounds per wound team recs -Appreciate nutrition recommendations about corpak duration -Plastic surgery consult- appreciate recs regarding any intervention for abdoulaye- incisional wounds -Will continue to follow, call with questions Adrienne Zarate MD [phone] * Nneka Garsia RN - 01/19/2018 3:27 PM CDT Formatting of this note may be different from the original. Wound Ostomy Note NAME:Beata Kaiser :1965 AGE: 52 y.o. ADMISSION DATE: 01/14/2018 DAYS ADMITTED: LOS: 5 days Reason for Consult/Visit: wound VAC Assessment/Plan: Principal Problem: Left hip amputation status Active Problems: Chondrosarcoma (HCC) Acute blood loss as cause of postoperative anemia Depression Anxiety DM (diabetes mellitus) (HCC) 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 Chronic pain Post-op pain Bacteremia Amputated left leg (HCC) Candiduria Wounds (NOT for Pressure Injuries) 11/30/17 0853 Left Buttocks Surgical Incision (Active) 11/30/17 0853 Buttocks Wound Orientation: Left Wound Type: Surgical Incision Wound Type:: Wound Description (Comments): Carlos Manuel Rosales Drain, Sutures, xeroform, 4x4's, and tegaderm. Wound Image 01/17/2018 10:00 AM Agree With My Assessment? Yes 01/08/2018 9:36 PM Wound Base Assessment Dressing intact, base not assessed 01/18/2018 10:00 PM Surrounding Skin Assessment Intact 01/17/2018 10:00 AM Wound Site Closure [place] 01/17/2018 10:00 AM Wound Drainage Amount None 01/17/2018 10:00 AM Wound Drainage Description Serosanguineous 01/11/2018 11:00 AM Wound Dressing Status Intact 01/18/2018 10:00 PM Wound Dressing and / or Treatment Hypafix Tape;Abdominal Pad 01/17/2018 10:00 AM Wound Length (cm) (Wound Team Only) 21 cm 01/17/2018 10:00 AM Wound Width (cm) (Wound Team Only) 5 cm 01/17/2018 10:00 AM Wound Depth (cm) (Wound Team Only) 0.1 01/17/2018 10:00 AM Wound Volume (cm^3) (Wound Team Only) 10.5 cm^3 01/17/2018 10:00 AM Number of days: 50 Wounds (NOT for Pressure Injuries) 12/14/17 1748 Left Abdomen Surgical Incision (Active) 12/14/17 1748 Abdomen Wound Orientation: Left Wound Type: Surgical Incision Wound Type:: Wound Description (Comments): SUTURES, CECI, XEROFORM, 4X4'S, ABDOMINAL PADS , TEGADERM, HYPA FIX TAPE Wound Image 01/17/2018 10:00 AM Agree With My Assessment? Except 12/30/2017 2:45 PM Wound Base Assessment Moist;[place];Yellow 01/19/2018 10:00 AM Surrounding Skin Assessment Excoriated;Intact;Red 01/19/2018 10:00 AM Wound Site Closure None 01/17/2018 10:00 AM Wound Drainage Amount Small 01/19/2018 10:00 AM Wound Drainage Description Serous;[place] 01/19/2018 10:00 AM Wound Dressing Status Changed 01/19/2018 10:00 AM Wound Dressing and / or Treatment Collagenase 01/19/2018 10:00 AM Wound Length (cm) (Wound Team Only) 21 cm 01/17/2018 10:00 AM Wound Width (cm) (Wound Team Only) 4 cm 01/17/2018 10:00 AM Wound Depth (cm) (Wound Team Only) 0.1 01/17/2018 10:00 AM Wound Volume (cm^3) (Wound Team Only) 8.4 cm^3 01/17/2018 10:00 AM Number of days: 36 Wounds (NOT for Pressure Injuries) 12/20/17 1530 Right;Lower Abdomen Moisture Associated Skin Damage (Active) 12/20/17 1530 Abdomen Wound Orientation: Right;Lower Wound Type: Moisture Associated Skin Damage Wound Type:: Wound Description (Comments): Agree With My Assessment? Yes 01/06/2018 8:00 PM Wound Base Assessment Dry;[place];Red 01/19/2018 10:00 AM Surrounding Skin Assessment Intact 01/19/2018 10:00 AM Wound Site Closure None 01/18/2018 8:10 AM Wound Drainage Amount None 01/18/2018 8:10 AM Wound Drainage Description Serous 01/14/2018 9:08 AM Wound Dressing Status Changed 01/19/2018 10:00 AM Wound Dressing and / or Treatment Interdry AG Textile 01/19/2018 10:00 AM Number of days: 30 Wounds (NOT for Pressure Injuries) 12/23/17 1345 Left Labia (Active) 12/23/17 1345 Labia Wound Orientation: Left Wound Type: Wound Type:: Wound Description (Comments): Agree With My Assessment? Yes 01/07/2018 9:55 PM Wound Base Assessment Red;Yellow 01/19/2018 10:00 AM Surrounding Skin Assessment Edema 01/19/2018 10:00 AM Wound Site Closure Open to Air 01/19/2018 10:00 AM Wound Drainage Amount None 01/18/2018 8:10 AM Wound Drainage Description Serous 01/17/2018 10:00 AM Wound Dressing Status Open to Air 01/19/2018 10:00 AM Wound Dressing and / or Treatment A & D Ointment 01/19/2018 10:00 AM Wound Length (cm) (Wound Team Only) 7 cm 01/17/2018 10:00 AM Wound Width (cm) (Wound Team Only) 2.5 cm 01/17/2018 10:00 AM Wound Depth (cm) (Wound Team Only) 0.1 01/17/2018 10:00 AM Wound Volume (cm^3) (Wound Team Only) 1.75 cm^3 01/17/2018 10:00 AM Wound Healing % (Wound Team Only) 6.67 01/17/2018 10:00 AM Number of days: 27 Wounds (NOT for Pressure Injuries) 12/30/17 1002 Left;Anterior Surgical Incision stump (Active) 12/30/17 1002 Wound Orientation: Left;Anterior Wound Type: Surgical Incision Wound Type:: stump Wound Description (Comments): Suture, ceci, telfa and iodine, 4x4, and tegaderm Wound Image 01/17/2018 10:00 AM Agree With My Assessment? Yes 01/06/2018 8:00 PM Wound Base Assessment Dressing intact, base not assessed 01/18/2018 10:00 PM Surrounding Skin Assessment Intact 01/17/2018 10:00 AM Wound Site Closure Ceci 01/17/2018 10:00 AM Wound Drainage Amount None 01/17/2018 10:00 AM Wound Drainage Description Brown;Serosanguineous 01/12/2018 10:55 PM Wound Dressing Status Intact 01/18/2018 10:00 PM Wound Dressing and / or Treatment Abdominal Pad;Hypafix Tape 01/17/2018 10:00 AM Wound Length (cm) (Wound Team Only) 28 cm 01/17/2018 10:00 AM Wound Width (cm) (Wound Team Only) 12.2 cm 01/17/2018 10:00 AM Wound Depth (cm) (Wound Team Only) 0.1 01/17/2018 10:00 AM Wound Volume (cm^3) (Wound Team Only) 34.16 cm^3 01/17/2018 10:00 AM Number of days: 20 Wounds (NOT for Pressure Injuries) 01/10/18 1100 Hip Surgical Incision (Active) 01/10/18 1100 Hip Wound Orientation: Wound Type: Surgical Incision Wound Type:: Wound Description (Comments): XEROFORM, 4X4S, HYPAFIX, WOUND VAC Wound Image 01/17/2018 10:00 AM Agree With My Assessment? Yes 01/10/2018 12:15 PM Wound Base Assessment Dressing intact, base not assessed 01/18/2018 10:00 PM Surrounding Skin Assessment Intact;Edema 01/17/2018 10:00 AM Wound Site Closure Sutures 01/17/2018 10:00 AM Wound Drainage Amount Large 01/18/2018 10:00 PM Wound Drainage Description Serosanguineous 01/18/2018 10:00 PM Wound Dressing Status Intact 01/18/2018 10:00 PM Wound Dressing and / or Treatment VAC @ -125 mm/Hg 01/18/2018 10:00 PM Wound Length (cm) (Wound Team Only) 7 cm 01/17/2018 10:00 AM Wound Width (cm) (Wound Team Only) 15 cm 01/17/2018 10:00 AM Wound Depth (cm) (Wound Team Only) 27 01/17/2018 10:00 AM Wound Volume (cm^3) (Wound Team Only) 2835 cm^3 01/17/2018 10:00 AM Wound Healing % (Wound Team Only) -21.15 01/17/2018 10:00 AM Tunneling in CM (Wound Team Only) 15 cm 01/17/2018 10:00 AM Tunnelling Location 3 01/17/2018 10:00 AM Number of days: 9 Colostomy 12/30/17 1209 Right (Active) 12/30/17 1209 Right Agree With My Assessment? Yes 01/10/2018 12:15 PM Stoma Assessment Red;[place] 01/19/2018 10:00 AM Drainage Description Brown 01/19/2018 10:00 AM Peristomal Skin Assessment Dry;Intact 01/19/2018 10:00 AM Dressing Status Clean;Dry;Intact 01/17/2018 8:44 PM Drain Output (ml) 0 ml 01/15/2018 10:00 AM Procedure: Negative Wound Therapy Dressing Change Anesthesia Type: Not Applicable or None Provider(s) and Role: RN Negative Wound Pressure Device Type: KCI VAC Contact layer: no Wound dimension (length x width x depth, tunneling, undermining): no measured today, see measurements above form 01/18 Number of sponges in the wound prior to dressing change: 3 Number of sponges removed from the wound: 3 Type of sponge: Black foam Number of sponges placed in the wound: 3 Nneka Garsia RN Pt seen today for wound vac change. No change to wound, if anything it is slightly worse. Areas of ceci wanting to separate on anterior and posterior incision. Blister around wound on posterior. Wound Vac was intact and not leaking today, but Aquacel AG around wound that was placed on Wednesday was saturated and fluid was slightly pooled under vac drape. Eschar on left Anterior hip, posterior buttocks and below incision still dry and intact. Concerns about correction plan of this wound and treatment. Will call and discuss plan with ortho team. Next wound vac change for 01/21/18 Recommendations: Possible consult to plastic surgery/ Discussed recommendations with Ortho resident Dr Zarate who stated she would reach out to Dr Luther. Continue wound vac changes MWF Collagenase to lower mid abdomen, change daily, cover with ABD pad Per ortho recommendations: dry gauze to remainder of incision, change PRN Thank you Opal Garsia RN, BSN Wound /Ostomy Team Pager [phone] After Hours Wound/Ostomy team pager [phone] * Leia Zimmerman - 01/19/2018 2:35 PM CDT CLINICAL NUTRITION Clinical Nutrition Follow-Up Summary Nutrition Assessment of Patient: Malnutrition Assessment: Adequately nourished prior to admission Current Oral Intake: Marginally Adequate Estimated Calorie Needs: 1660 (30kcal/kg of dw 55kg) Estimated Protein Needs: 100-120 (1.5-2.2g/kg of dw 55kg) Oral Diet Order: Diabetic 9272-6248 Kcal/day (60 g Carb/meal, 30 g Carb/HS snack ) Current EN Order: Nutren 1.5 @ 75ml/hr x's 6 hrs from 1127-8975, 3 ProSource/ day (At goal will provide: 855kcal (52% est needs), 76 g protein (63-76% est needs), and 345ml free water/day). 30ml water flush Q4H 3-day Average of Combined Routes of Nutrition (includes 2-day PO intake): Intake (calories) Daily Average : 1821 kilocalories (>100% of needs) Intake (protein) Daily Average : 92 grams (92% of min est needs) 2-day PO intake avkcal, 23g protein (50% of kcal, 23% of protein needs) 52 yof admitted to [facility] 01/14/18 s/p L hemipelvectomy 12/14 due to pelvic mass/ chondrosarcoma. PMH of DM (A1c 6.5) and depression. Pt with stool soilage issues prohibiting wound healing had colostomy 12/30. TPN was added to enhance nutrition followed by supplemental EN. I&D with wound vac 01/10. Pt weight decreased ~12% initially s/p amputation. Total leg amputation accounts for 16% wt loss. Current rehab weight of 209# is stable with initial loss. Pt pre- surgery wt was 231#. Pt continues to report a good appetite, but has dislike for many menu choices. Per calorie count, pt met 50% of her needs via oral intake x 2 days with minimal protein. EN continues to run nocturnally, meeting majority of protein needs. Pt reports no GI distress. +FCD /. Pt with improvement in fatigue from previous visit. Intakes have improved, but are not sufficient to meet needs alone. Encouraged pt to consume adequate protein at all meals, reviewing choices. Pt reports dislike for most meat. Discussed option of Boost GC when meal is not appealing. Per team conference, reported plan to continue EN 2/2 need for wound healing. Pt not likely to dc with EN. Pt is new to insulin and will require DM education; not appropriate at this time. BG POC 194-233 today; MDCF, Novolog, Lantus, Humulin on board. Food Recall (breakfast 01/19): 2 pancakes Fruit cup 2% milk Recommendation: Continue EN order to meet 50% of estimated needs 2/2 demand for wound healing and increased protein needs. Offer Boost drinks at Breakfast and Dinner for option when intake is low. Encourage protein sources. Continue calorie count. Intervention / Plan: Monitor calorie count, EN infusion avg Monitor PO intake, EN rate/tolerance, wt, labs, skin, gi, meds, fluids Monitor follow up for DM diet education (home on insulin) Nutrition Diagnosis: Nutrition Diagnosis: Increased nutrient needs, specify: Etiology: protein: demand for wound healing Signs & Symptoms: s/p hemipelvectomy Goals: Transition from enteral to oral Time Frame: Within 72 Hours Status: Not met;new goal established Combined routes of nutrition meeting 100% of nutritional needs Time Frame: Within 5 Days Leia Zimmerman, KAYA, LD *[id number] * Nani Lynch, - 01/19/2018 12:51 PM CDT Formatting of this note may be different from the original. Infectious Diseases Progress Note Today's Date: 01/19/2018 Admission Date: 01/14/2018 Assessment: # GBS bacteremia w sepsis- source suspected left hip wound, less likely pna - Fever and leukocytosis began 12/20/17 - 12/21 L lower lobe infiltrate - read as atelectasis - 12/20 C. diff negative - 12/23 Bcx 09/21 set group B streptococcus; source seems most likely intra-pelvic; 12/24 bcx negative - CT pelvis 12/25: "Ill-defined fluid and air along the anterior margin of the surgical site away from the drain tip. However, no discrete drainable fluid collection is noted. - OR 01/10 for wound eval - no sign of infection - posterior wound starting to granulate, WV started # Candiduria - 12/21/17 UA: wbc 2-10, negative nitrite, 1+ luukocytes, Culture > 100,000 Liliana sp - Sensitivities not done, unsure if fluconazole susceptible; repeat urine culture negative 12/28 but improved with micafungin so is suspicion for fluconazole resistance - Treating given indwelling melchor and inability to remove melchor d/t recent bladder repair - ? Candidal intertrigo - groin/mons - Cath change in OR 01/10 - no bladder leak at that time - Micafungin course completed 01/16 # s/p hemipelvectomy for Chondrosarcoma - 11/25/17 MRI: a large lesion throughout the entire left hemipelvis that appeared to be centered within the ilium - 11/30/17 open biopsy: Chondrosarcoma - 11/26/17 CT: few small pulmonary nodules. will resect the masses in the chest later - admission 12/13/17- - 12/14/17: left hemipelvectomy, jamil sacrectomy. Complicated with bladder and urethral injury. Added Cystoscopy with left ureteral stent insertion, Bladder neck repair, Urethroplasty and repair of urethral injury, Vaginal closure. - Stool saturating wound. Diverting colostomy done 12/30. - 01/06 CT: left hemipelvectomy, edema w/in the operative bed- not changed except sl more gas, more focal gas/fluid alonger anterior/inferior and superior surgical margins. #night sweats - per pt worse past week - TSH high, T4 ok, on replacement, no hypotension /lyte disturbance suggestive of adrenal disease, no menses since probably 2012 per pt - stopped HRT just before surg*; getting intermittent steroid, no s/s alternate new infection # DVT - 11/30/17 IVC filter for DVT within the external iliac vein # Obese # HTN # DM # 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 # Depression # Generalized pain # abx allergy - allergic history to Cephalexin 'years ago' with skin rash and hot flash - tolerated Penicillin when she had dental caries Recommendations: 1. Cont ertapenem 1 gram daily; planned stop date of 01/23 2. Monitor for abx toxicity with intermittent cbc, cmp 3. Will follow, please call w/ any concerns at time of next WV change Nani Lynch DO Division of Infectious Diseases Pager [phone] Interval History Afebrile, vitals stable. No fever, chills - still occ swaets No cough Lack of appetite but no nausea Pain L back from "pulling" with a prior transfer Vac 450 cc Antimicrobial Start date End date Erythromycin 12/13 Neomycin 12/13 12/13 Polymyxin B 12/14 12/14 Ertapenem 01/10 active Gentamycin 12/14 12/15 Clindamycin 12/14 12/22 Pip/tazo 12/22 01/10 Fluconazole 12/22 12/30 Vancomycin 12/23 12/27 Micafungin 12/30 01/16 Estimated Creatinine Clearance: 103.1 mL/min (based on SCr of 0.51 mg/dL). Medications Scheduled Meds: acetaminophen (TYLENOL) tablet 1,000 mg 1,000 mg Oral Q8H* aspirin chewable tablet 81 mg 81 mg Oral QDAY buPROPion (WELLBUTRIN) tablet 100 mg 100 mg Oral TID busPIRone (BUSPAR) tablet 30 mg 30 mg Oral BID collagenase (SANTYL) topical ointment Topical QDAY docusate (COLACE) capsule 100 mg 100 mg Oral BID ertapenem (INVANZ) IVP 1 g 1 g Intravenous Q24H* ferrous sulfate (FEOSOL, FEROSUL) tablet 325 mg 325 mg Oral TID w/ meals gabapentin (NEURONTIN) capsule 800 mg 800 mg Oral QID HYDROmorphone injection (DILAUDID) injection 1 mg 1 mg Intravenous Once per day on Wed insulin aspart U-100 (NOVOLOG FLEXPEN) injection PEN 0-14 Units 0-14 Units Subcutaneous 5 X Day insulin aspart U-100 (NOVOLOG FLEXPEN) injection PEN 8 Units 8 Units Subcutaneous TID after meals insulin glargine (LANTUS SOLOSTAR, BASAGLAR) injection PEN 20 Units 20 Units Subcutaneous QHS insulin NPH (HUMULIN N KwikPen) injection PEN 30 Units 30 Units Subcutaneous QDAY(21) lactobacillus rhamnosus GG (CULTURELLE) 15 billion cell capsule 1 capsule 1 capsule Oral BID w/meals levothyroxine (SYNTHROID) tablet 175 mcg 175 mcg Oral QDAY before breakfast lidocaine (LIDODERM) 5 % topical patch 2 patch 2 patch Topical QDAY nortriptyline (PAMELOR) capsule 25 mg 25 mg Oral QHS oxyCODONE SR (OXYCONTIN) tablet 10 mg 10 mg Oral BID pantoprazole DR (PROTONIX) tablet 40 mg 40 mg Oral QDAY(21) rivaroxaban (XARELTO) tablet 20 mg 20 mg Oral QDAY w/breakfast simvastatin (ZOCOR) tablet 20 mg 20 mg Oral QHS sodium chloride PF 0.9% flush 5-10 mL 5-10 mL Intravenous FLUSH TID vitamin A & D topical ointment Topical BID Continuous Infusions: PRN and Respiratory Meds:alum/mag hydroxide/simeth Q6H PRN, calcium carbonate Q4H PRN, milk of magnesia (CONC) Q4H PRN, ondansetron (ZOFRAN) IV Q6H PRN, oxyCODONE Q4H PRN, pancrelipase 20,000 Units/ sodium bicarbonate 650 mg(#) PRN ( Catalogue Librarian from Rx) Physical Examination Vital Signs: Last Vital Signs: 24 Hour Range BP: 112/54 (01/19 317) Temp: 36.9 C (98.4 F) (01/18 1653) Pulse: 108 (01/19 317) Respirations: 17 PER MINUTE (01/19 317) SpO2: 94 % (01/19 317) O2 Delivery: None (Room Air) (01/19 317) BP: (112-126)/(54-65) Temp: [36.9 C (98.4 F)] Pulse: [108] Respirations: [17 PER MINUTE-18 PER MINUTE] SpO2: [94 %-96 %] O2 Delivery: None (Room Air) General appearance: alert, oriented, NAD; resting in bed Lungs: clear bilaterally anteriorly Heart: Regular rhythm, reg rate, with no murmur Abdomen: soft, obese, normal bowel sounds Ext: s/p left hemipelvectomy; wounds dressed - WV posteriorly; no point tenderness low back Skin: no new rashes noted Lines: PICC RUE- No erythema Lab Review Hematology Recent Labs 01/17/18 0530 01/18/18 0601 01/19/18 0530 WBC 10.3 10.9 10.9 HGB 8.9* 8.7* 8.4* HCT 25.7* 26.4* 24.5* PLTCT 465* 379 414* Chemistry Recent Labs 01/17/18 0530 01/17/18 1311 01/18/18 0601 01/19/18 0530 NA 135* -- 135* 135* K 4.4 -- 4.2 4.5 CL 101 -- 100 101 CO2 29 -- 29 27 BUN 15 -- 15 13 CR 0.58 -- 0.51 0.51 GFR >60 -- >60 >60 GLU 192* -- 191* 250* CA 8.6 -- 8.6 8.5 ALBUMIN -- 2.6* -- -- Microbiology, Radiology and other Diagnostics Review Microbiology data reviewed. Pertinent radiology reviewed Nani Lynch DO Pager [phone] ID * Ruth Allen MD - 01/19/2018 9:41 AM CDT Formatting of this note may be different from the original. ATTESTATION I personally performed the banuelos portions of the E/M visit, discussed case with resident and concur with resident documentation of history, physical exam, assessment, and treatment plan unless otherwise noted. Labs and VS reviewed and stable. Pt reports increased left-sided axial LBP after turning in bed. Biofreeze helps. Will add heat/ice prn for likely muscular pain. Wound vac change today. Ertapenam until 01/23 per ID. Cont Melchor due to bladder wall injury. Check prealbumin next week, f/u leslie ct with Case Packer And Sealer. Per patient and therapies, lots of anxiety during therapy time. Has wellbutrin and buspar, could titrate nortriptyline and/or consult Psychiatry during her rehab stay. Per d/w rehab team at conference, patient making progress towards goal of min- mod assist with manual wheelchair, slideboard, ramp. Tentative discharge date . Progress this week, initiated slideboard transfers with min A x2, sit to distribution field engineer // bars, total assist bowel and bladder. Recommending HH therapies at time of discharge from rehab. Time spent with patient, majority spent on counseling patient/family and rest on coordination of rehab plan of care: 25 minutes Time spent coordination care/discharge in team huddle/conference: 10 minutes Total time: 35 minutes Staff name: Ruth Allen MD Date: 01/19/2018 Physical Medicine & Rehabilitation Progress Note Today's Date: 01/19/2018 Admission Date: 01/14/2018 LOS: 5 days Insurance: [facility] Principal Problem: Left hip amputation status Active Problems: Chondrosarcoma (HCC) Acute blood loss as cause of postoperative anemia Depression Anxiety DM (diabetes mellitus) (HCC) 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 Chronic pain Post-op pain Bacteremia Amputated left leg (HCC) Candiduria Assessment/Plan: Beata Lema a 52 y.o.femalead[facility] the following issues : 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 Goals: household mobility, at wheelchair level, min-mod A Tentative discharge date: 02/02/18 Recommended therapy after discharge: home health OT/PT Recommended equipment: Slideboard and wheelchair, anticipating ramp Daily Functional Update: Transfers Device Sit to Stand Transfer: Assistive Device: Sliding Board;Parallel Bars (01/18/2018 5:00 PM) No Data Recorded Gait Device Assist Required Distance Gait: Assistive Device: IV Pole (12/01/2017 11:00 AM) No Data Recorded Gait Distance: 400 feet (12/01/2017 11:00 AM) Toileting Assist Required Equipment Toilet Transfer Toileting Assist: Total Assist (01/06/2018 1:00 PM) No Data Recorded No Data Recorded Dressing Lower Body LE Dressing Assist: Maximum Assist (01/15/2018 8:00 AM) 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 Changes M/W/F by wound vac team. IV dilaudid PRN for WV changes + lidocaine into sponge during acute hospitalization - wean off IV pain meds as able >Change dressings prn with dry sterile gauze and hypafix tape >vitamin A &D for labia wound, collagenase for left lower abdomen wound healing Post-op pain in setting of chronic pain Phantom limb pain, neuropathic pain >scheduled Tylenol, oxycontin 10mg BID and oxycodone 20mg q3h prn. Lidoderm patch prn. > nortriptyline 25mg HS > Continue gabapentin 800mg Q6h s/p diverting colostomy - Stool saturating wound. Diverting colostomy done 12/30 >wound/ostomy consulted Bladder injury, recent repair - bladder and urethral injuries during hemipelvectomy on 12/14/17 - underwent cystoscopy with left ureteral stent insertion, Bladder neck repair, Urethroplasty and repair of urethral injury, Vaginal closure >continue melchor catheter > Urology f/u after rehab discharge Chest lesions (metastases?) - 11/26/17 CT: few small pulmonary nodules. >plan is to resect the masses in the chest later >CT chest scheduled for 02/08 with f/u with CTS surgery GBS bacteremia w/ sepsis due to left hip wound - Fever and leukocytosis began 12/20/17, Bcx 1/2 positive for GBS on 12/23 - CT pelvis 12/25 showed ill-defined fluid and air along the anterior margin of the surgical site away from the drain tip. However, no discrete drainable fluid collection is noted. - OR 01/10 for wound eval - no sign of infection - posterior wound starting to granulate, WV replaced; WV changed 01/12, wound clean with blood present, no purulence >per ID recs, continue ertapenem 1 gram daily stop date 01/23 Candiduria - 12/21/17 UA: wbc 2-10, negative nitrite, 1+ luukocytes, Culture > 100,000 Liliana sp - Treating given indwelling melchor and inability to remove melchor d/t recent bladder repair - Cath change in OR 01/10 - no bladder leak at that time > micafungin d/c'ed on 01/17 DVT - 11/30/17 IVC filter for DVT within the external iliac vein >cont Xarelto ABLA - Hgb 7.8 on admission to rehab - no concern for current bleed at this time >monitor labs > 01/15: Hgb 6.5, transfused 1unit pRBCs T2DM - A1c 6.5%, controlled - CAMP TENDER regimen: Metformin thousand milligrams twice a day, [id number] mg daily >Continue with Lantus 22 units QHS, novolog 8u postmeal, MDCF 5x per day >Continue NPH 30 units with nocturnal tube feeds - please hold NPH if tube feed are held and give at the start of tube feed 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 - CAMP TENDER 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 daily - TSH 2.1 this admission >continue CAMP TENDER levothyroxine >She will need repeat thyroid function tests in 6-8 weeks MDD CLAUDIA Adjustment disorder with mixed anxiety and depressed mood > continue CAMP TENDER Wellbutrin and buspar Nutrition - 01/17 albumin 2.6, Prealbumin 13.0, likely check Q7days >Current diet: diabeticand nocturnal tube feeds - Nutren 1.5 from 2200- 0400 at 75mL/hr through [employer]3 protein packs per day, [id number] q4h > Case Packer And Sealer consult and d/c tube feeds once eating to meet needs > weekly prealbumin HLD: holding CAMP TENDER statin Insomnia: nortriptyline 25mg qhs Skin:There are no pressure sores currently. Bowel:ostomy Bladder:Cointinue salvatore for now Mental Health:consult neuropsychology to provide support / counseling DVT Prophylaxis:Xarelto, will discharge on it Subjective No acute events overnight. Pt resting in bed when seen this am. Pt stated she when working with therapies the other day she strained her back and is currently having non radiating lower back pain. Will apply heat and ice. Objective Vital Signs: Last Filed Vital Signs: 24 Hour Range BP: 112/54 (01/19 317) Temp: 36.9 C (98.4 F) (01/18 1653) Pulse: 108 (01/19 317) Respirations: 17 PER MINUTE (01/19 317) SpO2: 94 % (01/19 317) O2 Delivery: None (Room Air) (01/19 317) BP: (112-126)/(54-65) Temp: [36.9 C (98.4 F)] Pulse: [108] Respirations: [17 PER MINUTE-18 PER MINUTE] SpO2: [94 %-96 %] O2 Delivery: None (Room Air) Intensity Pain Scale 0-10 (Pain 1): 4 (01/19/18 0730) Vitals: 01/17/18 0520 01/18/18 0551 01/19/18 0747 Weight: 95 kg (209 lb 7 oz) 94.6 kg (208 lb 9.2 oz) 95.1 kg (209 lb 10.5 oz) Intake/Output Summary: (Last 24 hours) Intake/Output Summary (Last 24 hours) at 01/19/18 0941 Last data filed at 01/19/18 0900 Gross per 24 hour Intake 1095 ml Output 5850 ml Net -4755 ml Stool Occurrence: 1 Oral Diet Order: Diabetic [id number] Kcal/day (60 g Carb/meal, 30 g Carb/HS snack ) Last BM Date: 01/18/18 Lab: Results for orders placed or performed during the hospital encounter of (from the past 24 hour(s)) POC GLUCOSE Collection Time: 01/18/18 12:06 PM # # Low-High Glucose, POC 161 (H) 70 - 100 MG/DL POC GLUCOSE Collection Time: 01/18/18 4:58 PM # # Low-High Glucose, POC 270 (H) 70 - 100 MG/DL POC GLUCOSE Collection Time: 01/18/18 8:59 PM # # Low-High Glucose, POC 192 (H) 70 - 100 MG/DL POC GLUCOSE Collection Time: 01/19/18 3:17 AM # # Low-High Glucose, POC 218 (H) 70 - 100 MG/DL CBC CELLULAR THERAPEUTICS Collection Time: 01/19/18 5:30 AM # # Low-High White Blood Cells 10.9 4.5 - 11.0 K/UL RBC 2.95 (L) 4.0 - 5.0 M/UL Hemoglobin 8.4 (L) 12.0 - 15.0 GM/DL Hematocrit 24.5 (L) 36 - 45 % MCV 83.0 80 - 100 FL MCH 28.5 26 - 34 PG MCHC 34.3 32.0 - 36.0 G/DL RDW 16.8 (H) 11 - 15 % Platelet Count 414 (H) 150 - 400 K/UL MPV 6.6 (L) 7 - 11 FL BASIC METABOLIC PANEL CELLULAR THERAPEUTICS Collection Time: 01/19/18 5:30 AM # # Low-High Sodium 135 (L) 137 - 147 MMOL/L Potassium 4.5 3.5 - 5.1 MMOL/L Chloride 101 98 - 110 MMOL/L CO2 27 21 - 30 MMOL/L Anion Gap 7 3 - 12 Glucose 250 (H) 70 - 100 MG/DL Blood Urea Nitrogen 13 7 - 25 MG/DL Creatinine 0.51 0.4 - 1.00 MG/DL Calcium 8.5 8.5 - 10.6 MG/DL eGFR Non >60 >60 mL/min eGFR >60 >60 mL/min POC GLUCOSE Collection Time: 01/19/18 7:15 AM # # Low-High Glucose, POC 233 (H) 70 - 100 MG/DL Scheduled Meds: acetaminophen (TYLENOL) tablet 1,000 mg 1,000 mg Oral Q8H* buPROPion (WELLBUTRIN) tablet 100 mg 100 mg Oral TID busPIRone (BUSPAR) tablet 30 mg 30 mg Oral BID collagenase (SANTYL) topical ointment Topical QDAY docusate (COLACE) capsule 100 mg 100 mg Oral BID ertapenem (INVANZ) IVP 1 g 1 g Intravenous Q24H* ferrous sulfate (FEOSOL, FEROSUL) tablet 325 mg 325 mg Oral TID w/ meals gabapentin (NEURONTIN) capsule 800 mg 800 mg Oral QID HYDROmorphone injection (DILAUDID) injection 1 mg 1 mg Intravenous Once per day on Wed insulin aspart U-100 (NOVOLOG FLEXPEN) injection PEN 0-14 Units 0-14 Units Subcutaneous 5 X Day insulin aspart U-100 (NOVOLOG FLEXPEN) injection PEN 8 Units 8 Units Subcutaneous TID after meals insulin glargine (LANTUS SOLOSTAR, BASAGLAR) injection PEN 20 Units 20 Units Subcutaneous QHS insulin NPH (HUMULIN N KwikPen) injection PEN 30 Units 30 Units Subcutaneous QDAY(21) lactobacillus rhamnosus GG (CULTURELLE) 15 billion cell capsule 1 capsule 1 capsule Oral BID w/meals levothyroxine (SYNTHROID) tablet 175 mcg 175 mcg Oral QDAY before breakfast lidocaine (LIDODERM) 5 % topical patch 2 patch 2 patch Topical QDAY nortriptyline (PAMELOR) capsule 25 mg 25 mg Oral QHS oxyCODONE SR (OXYCONTIN) tablet 10 mg 10 mg Oral BID pantop[address]ole DR (PROTONIX) tablet 40 mg 40 mg Oral QDAY(21) rivaroxaban (XARELTO) tablet 20 mg 20 mg Oral QDAY w/breakfast sodium chloride PF 0.9% flush 5-10 mL 5-10 mL Intravenous FLUSH TID vitamin A & D topical ointment Topical BID WATER FOR INJECTION, STERILE IJ SOLN (Cabinet Override) NOW Continuous Infusions: PRN and Respiratory Meds:alum/mag hydroxide/simeth Q6H PRN, calcium carbonate Q4H PRN, milk of magnesia (CONC) Q4H PRN, ondansetron (ZOFRAN) IV Q6H PRN, oxyCODONE Q4H PRN, pancrelipase 20,000 Units/ sodium bicarbonate 650 mg(#) PRN ( Catalogue Librarian from Rx) Physical Exam VS: BP 112/54 (BP Source: Arm, Left) | Pulse 108 | Temp 36.9 C (98.4 F) | Ht 160 cm (63") | Wt 95.1 kg (209 lb 10.5 oz) | LMP 01/14/2013 | SpO2 94% | BMI 37.14 kg/m Gen: awake, alert, NAD, corpak in place CV: RRR, no murmur Pulm: CTAB, no w/r Abd: nondistended, nontender Extremities: mild edema rle, s/p hemipelvectomy on left with dressings and wound vac in place Skin: warm, dry Neuro: alert, oriented, speech fluent and clear, eomi, at least antigravity strength in remaining 3 extremities Therapy Notes & Labs Reviewed. Ravi Pride DO Pager [phone] * Ivan Barrera RN - 01/19/2018 7:48 AM CDT Formatting of this note may be different from the original. Heart Failure Nursing Progress Note Admission Date: 01/14/2018 LOS: 5 days Admission Weight: 99 kg (218 lb 4.8 oz) Most recent weights (inpatient): Vitals: 01/17/18 0520 01/18/18 0551 01/19/18 0747 Weight: 95 kg (209 lb 7 oz) 94.6 kg (208 lb 9.2 oz) 95.1 kg (209 lb 10.5 oz) Weight change from previous day:+ 0.5 Fluid restriction ordered: No Intake/Output Summary: (Last 24 hours) Intake/Output Summary (Last 24 hours) at 01/19/18 0748 Last data filed at 01/19/18 0732 Gross per 24 hour Intake 1095 ml Output 5700 ml Net -4605 ml Is patient incontinent No Anticipated discharge date: 01/23/18 Discharge goals: To take care of hygiene myself Daily Assessment of Patient Stated Goals: Short Term Goal Identified by patient (Short Term=during hospitalization): * Nani Lynch DO - 01/18/2018 2:01 PM CDT Formatting of this note may be different from the original. Infectious Diseases Progress Note Today's Date: 01/18/2018 Admission Date: 01/14/2018 Assessment: # GBS bacteremia w sepsis- source suspected left hip wound, less likely pna - Fever and leukocytosis began 12/20/17 - 12/21 L lower lobe infiltrate - read as atelectasis - 12/20 C. diff negative - 12/23 Bcx 09/21 set group B streptococcus; source seems most likely intra-pelvic; 12/24 bcx negative - CT pelvis 12/25: "Ill-defined fluid and air along the anterior margin of the surgical site away from the drain tip. However, no discrete drainable fluid collection is noted. - OR 01/10 for wound eval - no sign of infection - posterior wound starting to granulate, WV started # Candiduria - 12/21/17 UA: wbc 2-10, negative nitrite, 1+ luukocytes, Culture > 100,000 Liliana sp - Sensitivities not done, unsure if fluconazole susceptible; repeat urine culture negative 12/28 but improved with micafungin so is suspicion for fluconazole resistance - Treating given indwelling melchor and inability to remove melchor d/t recent bladder repair - ? Candidal intertrigo - groin/mons - Cath change in OR 01/10 - no bladder leak at that time - Micafungin course completed 01/16 # s/p hemipelvectomy for Chondrosarcoma - 11/25/17 MRI: a large lesion throughout the entire left hemipelvis that appeared to be centered within the ilium - 11/30/17 open biopsy: Chondrosarcoma - 11/26/17 CT: few small pulmonary nodules. will resect the masses in the chest later - admission 12/13/17- - 12/14/17: left hemipelvectomy, jamil sacrectomy. Complicated with bladder and urethral injury. Added Cystoscopy with left ureteral stent insertion, Bladder neck repair, Urethroplasty and repair of urethral injury, Vaginal closure. - Stool saturating wound. Diverting colostomy done 12/30. -01/06 CT: left hemipelvectomy, edema w/in the operative bed- not changed except sl more gas, more focal gas/fluid alonger anterior/inferior and superior surgical margins. #night sweats - per pt worse past week - TSH high, T4 ok, on replacement, no hypotension /lyte disturbance suggestive of adrenal disease, no menses since probably 2012 per pt - stopped HRT just before surg*; getting intermittent steroid, no s/s alternate new infection # DVT - 11/30/17 IVC filter for DVT within the external iliac vein # Obese # HTN # DM # 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 # Depression # Generalized pain # abx allergy - allergic history to Cephalexin 'years ago' with skin rash and hot flash - tolerated Penicillin when she had dental caries Recommendations: 1. Cont ertapenem 1 gram daily; planned stop 01/23 2. Monitor for abx toxicity with intermittent cbc, cmp 3. Will follow Nani Lynch DO Division of Infectious Diseases Pager [phone] Interval History Afebrile, vitals stable. No fever, chills "hot" with still intermittent sweats No cough/sob No nausea pIan through "bottom" tearful as sitting in wheelchair for past hour - ready to get back to bed Vac 1375cc Antimicrobial Start date End date Erythromycin 12/13 Neomycin 12/13 12/13 Polymyxin B 12/14 12/14 Ertapenem 01/10 active Gentamycin 12/14 12/15 Clindamycin 12/14 12/22 Pip/tazo 12/22 01/10 Fluconazole 12/22 12/30 Vancomycin 12/23 12/27 Micafungin 12/30 01/16 Estimated Creatinine Clearance: 102.9 mL/min (based on SCr of 0.51 mg/dL). Medications Scheduled Meds: acetaminophen (TYLENOL) tablet 1,000 mg 1,000 mg Oral Q8H* buPROPion (WELLBUTRIN) tablet 100 mg 100 mg Oral TID busPIRone (BUSPAR) tablet 30 mg 30 mg Oral BID collagenase (SANTYL) topical ointment Topical QDAY docusate (COLACE) capsule 100 mg 100 mg Oral BID ertapenem (INVANZ) IVP 1 g 1 g Intravenous Q24H* ferrous sulfate (FEOSOL, FEROSUL) tablet 325 mg 325 mg Oral TID w/ meals gabapentin (NEURONTIN) capsule 800 mg 800 mg Oral QID HYDROmorphone injection (DILAUDID) injection 1 mg 1 mg Intravenous Once per day on Wed insulin aspart U-100 (NOVOLOG FLEXPEN) injection PEN 0-14 Units 0-14 Units Subcutaneous 5 X Day insulin aspart U-100 (NOVOLOG FLEXPEN) injection PEN 8 Units 8 Units Subcutaneous TID after meals insulin glargine (LANTUS SOLOSTAR, BASAGLAR) injection PEN 20 Units 20 Units Subcutaneous QHS insulin NPH (HUMULIN N KwikPen) injection PEN 30 Units 30 Units Subcutaneous QDAY(21) lactobacillus rhamnosus GG (CULTURELLE) 15 billion cell capsule 1 capsule 1 capsule Oral BID w/meals levothyroxine (SYNTHROID) tablet 175 mcg 175 mcg Oral QDAY before breakfast lidocaine (LIDODERM) 5 % topical patch 2 patch 2 patch Topical QDAY nortriptyline (PAMELOR) capsule 25 mg 25 mg Oral QHS oxyCODONE SR (OXYCONTIN) tablet 10 mg 10 mg Oral BID pantoprazole DR (PROTONIX) tablet 40 mg 40 mg Oral QDAY(21) rivaroxaban (XARELTO) tablet 20 mg 20 mg Oral QDAY w/breakfast sodium chloride PF 0.9% flush 5-10 mL 5-10 mL Intravenous FLUSH TID vitamin A & D topical ointment Topical BID Continuous Infusions: PRN and Respiratory Meds:alum/mag hydroxide/simeth Q6H PRN, calcium carbonate Q4H PRN, milk of magnesia (CONC) Q4H PRN, ondansetron (ZOFRAN) IV Q6H PRN, oxyCODONE Q4H PRN, pancrelipase 20,000 Units/ sodium bicarbonate 650 mg(#) PRN ( Catalogue Librarian from Rx) Physical Examination Vital Signs: Last Vital Signs: 24 Hour Range BP: 112/62 (01/19 332) Temp: 36.7 C (98.1 F) (01/19 332) Pulse: 108 (01/19 332) Respirations: 18 PER MINUTE (01/19 332) SpO2: 100 % (01/19 332) O2 Delivery: None (Room Air) (01/18 0332) BP: (112-135)/(62-65) Temp: [36.7 C (98.1 F)-37.2 C (98.9 F)] Pulse: [108-114] Respirations: [18 PER MINUTE] SpO2: [94 %-100 %] O2 Delivery: None (Room Air) General appearance: alert, oriented, NAD; sitting up in WC, tearful HENT: no thrush Lungs: clear bilaterally Heart: Regular rhythm, reg rate, with no murmur Abdomen: soft, obese, normal bowel sounds Ext: s/p left hemipelvectomy; wounds dressed - not taken down today Skin: no new rash Lines: PICC RUE- No erythema Lab Review Hematology Recent Labs 01/16/18 0530 01/17/18 0530 01/18/18 0601 WBC 10.4 10.3 10.9 HGB 8.8* 8.9* 8.7* HCT 26.5* 25.7* 26.4* PLTCT 527* 465* 379 Chemistry Recent Labs 01/16/18 0530 01/17/18 0530 01/17/18 1311 01/18/18 0601 NA 134* 135* -- 135* K 4.4 4.4 -- 4.2 CL 100 101 -- 100 CO2 28 29 -- 29 BUN 13 15 -- 15 CR 0.58 0.58 -- 0.51 GFR >60 >60 -- >60 GLU 251* 192* -- 191* CA 8.6 8.6 -- 8.6 ALBUMIN -- -- 2.6* -- Microbiology, Radiology and other Diagnostics Review Microbiology data reviewed. Pertinent radiology reviewed Nani Lynch DO Pager [phone] ID * Ruth Allen MD - 01/18/2018 10:18 AM CDT Formatting of this note may be different from the original. ATTESTATION I personally performed the banuelos portions of the E/M visit, discussed case with resident and concur with resident documentation of history, physical exam, assessment, and treatment plan unless otherwise noted. Labs and VS reviewed and stable. Patient asking to be woken up for pain medications, d/w patient that sleep is important for healing as well. She can ask for pain medications when she wakes up. For phantom limb pain, we will reschedule gabapentin for QID dosing. Appreciate ID f/u, on IV abx until 01/23. Albumin and prealbumin low, leslie counts ongoing. Cont nocturnal tube feeds for now, check prealbumin weekly. Will need to reschedule CTS apt on 01/20 until after rehab discharge. Patient remains medically stable to participate in IRF program. Staff name: Ruth Allen MD Date: 01/18/2018 Physical Medicine & Rehabilitation Progress Note Today's Date: 01/18/2018 Admission Date: 01/14/2018 LOS: 4 days Insurance: [facility] Principal Problem: Left hip amputation status Active Problems: Chondrosarcoma (HCC) Acute blood loss as cause of postoperative anemia Depression Anxiety DM (diabetes mellitus) (HCC) 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 Chronic pain Post-op pain Bacteremia Amputated left leg (HCC) Candiduria Assessment/Plan: Beata Lema a 52 y.o.femalead[facility]with the following issues : 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 Goals: min assist w/c level, min assist with ADLs Tentative discharge date: 01/29/18 Recommended therapy after discharge: tbd Recommended equipment: tbd Daily Functional Update: Transfers Device Sit to Stand Transfer: Assistive Device: Mechanical Lift (01/15/2018 9:30 AM) No Data Recorded Gait Device Assist Required Distance Gait: Assistive Device: IV Pole (12/01/2017 11:00 AM) No Data Recorded Gait Distance: 400 feet (12/01/2017 11:00 AM) Toileting Assist Required Equipment Toilet Transfer Toileting Assist: Total Assist (01/06/2018 1:00 PM) No Data Recorded No Data Recorded Dressing Lower Body LE Dressing Assist: Maximum Assist (01/15/2018 8:00 AM) 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 Changes M/W/F by wound vac team. IV dilaudid PRN for WV changes + lidocaine into sponge during acute hospitalization - wean off IV pain meds as able >Change dressings prn with dry sterile gauze and hypafix tape >vitamin A &D for labia wound, collagenase for left lower abdomen wound healing Post-op pain in setting of chronic pain Phantom limb pain, neuropathic pain >scheduled Tylenol, oxycontin 10mg BID and oxycodone 20mg q3h prn. Lidoderm patch prn. > nortriptyline 25mg HS > Change gabapentin to 800mg Q6h s/p diverting colostomy - Stool saturating wound. Diverting colostomy done 12/30 >wound/ostomy consulted Bladder injury, recent repair - bladder and urethral injuries during hemipelvectomy on 12/14/17 - underwent cystoscopy with left ureteral stent insertion, Bladder neck repair, Urethroplasty and repair of urethral injury, Vaginal closure >continue melchor catheter > Urology f/u after rehab discharge Chest lesions (metastases?) - 11/26/17 CT: few small pulmonary nodules. >plan is to resect the masses in the chest later >CT chest scheduled for 01/20 with f/u with CTS surgery - need to reschedule GBS bacteremia w/ sepsis due to left hip wound - Fever and leukocytosis began 12/20/17, Bcx 1/2 positive for GBS on 12/23 - CT pelvis 12/25 showed ill-defined fluid and air along the anterior margin of the surgical site away from the drain tip. However, no discrete drainable fluid collection is noted. - OR 01/10 for wound eval - no sign of infection - posterior wound starting to granulate, WV replaced; WV changed 01/12, wound clean with blood present, no purulence >per ID recs, continue ertapenem 1 gram daily stop date 01/23 Candiduria - 12/21/17 UA: wbc 2-10, negative nitrite, 1+ luukocytes, Culture > 100,000 Liliana sp - Treating given indwelling melchor and inability to remove melchor d/t recent bladder repair - Cath change in OR 01/10 - no bladder leak at that time > micafungin d/c'ed on 01/17 DVT - 11/30/17 IVC filter for DVT within the external iliac vein >cont Xarelto ABLA - Hgb 7.8 on admission to rehab - no concern for current bleed at this time >monitor labs > 01/15: Hgb 6.5, transfused 1unit pRBCs T2DM - A1c 6.5%, controlled - CAMP TENDER regimen: Metformin thousand milligrams twice a day, mg daily >Continue with Lantus 22 units QHS, novolog 8u postmeal, MDCF 5x per day >Continue NPH 30 units with nocturnal tube feeds - please hold NPH if tube feed are held and give at the start of tube feed 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 - CAMP TENDER 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 daily - TSH 2.1 this admission >continue CAMP TENDER levothyroxine >She will need repeat thyroid function tests in 6-8 weeks MDD CLAUDIA Adjustment disorder with mixed anxiety and depressed mood > continue CAMP TENDER Wellbutrin and buspar Nutrition - 01/17 albumin 2.6, Prealbumin 13.0, likely check Q7days >Current diet: diabeticand nocturnal tube feeds - Nutren 1.5 from 2200- 0400 at 75mL/hr through [employer] protein packs per day, [id number] q4h > Case P[employer] Sealer consult and d/c tube feeds once eating to meet needs > weekly prealbumin HLD: holding CAMP TENDER statin Insomnia: nortriptyline 25mg qhs Skin:There are no pressure sores currently. Bowel:ostomy Bladder:Lidia melchor for now Mental Health:consult neuropsychology to provide support / counseling DVT Prophylaxis:Xarelto, will discharge on it Subjective No issues/events overnight. Pt lying in bed when seen this am. Pt requesting she receive her gabapentin more often to help with her phantom pain. Pt had concerns about not receiving pain meds overnight. Pt educated that it's important for her to get sleep to recover and we don't wake pt's up to give pain meds overnight. No other questions/concerns when seen. Objective Vital Signs: Last Filed Vital Signs: 24 Hour Range BP: 112/62 (01/19 332) Temp: 36.7 C (98.1 F) (01/19 332) Pulse: 108 (01/19 332) Respirations: 18 PER MINUTE (01/19 332) SpO2: 100 % (01/19 332) O2 Delivery: None (Room Air) (01/19 332) BP: (112-146)/(62-93) Temp: [36.7 C (98.1 F)-37.6 C (99.6 F)] Pulse: [108-129] Respirations: [13 PER MINUTE-22 PER MINUTE] SpO2: [94 %-100 %] O2 Delivery: None (Room Air) Intensity Pain Scale 0-10 (Pain 1): (P) 6 (01/18/18 0810) Vitals: 01/14/18 1615 01/17/18 0520 01/18/18 0551 Weight: 99 kg (218 lb 4.8 oz) 95 kg (209 lb 7 oz) 94.6 kg (208 lb 9.2 oz) Intake/Output Summary: (Last 24 hours) Intake/Output Summary (Last 24 hours) at 01/18/18 1018 Last data filed at 01/18/18 0900 Gross per 24 hour Intake 900 ml Output 4125 ml Net -3225 ml Stool Occurrence: 1 Oral Diet Order: Diabetic 6701-1967 Kcal/day (60 g Carb/meal, 30 g Carb/HS snack ) Last BM Date: 01/17/18 Lab: Results for orders placed or performed during the hospital encounter of (from the past 24 hour(s)) POC GLUCOSE Collection Time: 01/17/18 11:45 AM # # Low-High Glucose, POC 157 (H) 70 - 100 MG/DL POC GLUCOSE Collection Time: 01/17/18 12:31 PM # # Low-High Glucose, POC 141 (H) 70 - 100 MG/DL ALBUMIN Collection Time: 01/17/18 1:11 PM # # Low-High Albumin 2.6 (L) 3.5 - 5.0 G/DL PREALBUMIN Collection Time: 01/17/18 1:11 PM # # Low-High Prealbumin 13.0 (L) 17 - 34 MG/DL POC GLUCOSE Collection Time: 01/17/18 4:53 PM # # Low-High Glucose, POC 196 (H) 70 - 100 MG/DL POC GLUCOSE Collection Time: 01/17/18 9:00 PM # # Low-High Glucose, POC 136 (H) 70 - 100 MG/DL POC GLUCOSE Collection Time: 01/18/18 3:21 AM # # Low-High Glucose, POC 248 (H) 70 - 100 MG/DL CBC CELLULAR THERAPEUTICS Collection Time: 01/18/18 6:01 AM # # Low-High White Blood Cells 10.9 4.5 - 11.0 K/UL RBC 3.15 (L) 4.0 - 5.0 M/UL Hemoglobin 8.7 (L) 12.0 - 15.0 GM/DL Hematocrit 26.4 (L) 36 - 45 % MCV 83.9 80 - 100 FL MCH 27.6 26 - 34 PG MCHC 32.9 32.0 - 36.0 G/DL RDW 16.7 (H) 11 - 15 % Platelet Count 379 150 - 400 K/UL MPV 6.4 (L) 7 - 11 FL BASIC METABOLIC PANEL CELLULAR THERAPEUTICS Collection Time: 01/18/18 6:01 AM # # Low-High Sodium 135 (L) 137 - 147 MMOL/L Potassium 4.2 3.5 - 5.1 MMOL/L Chloride 100 98 - 110 MMOL/L CO2 29 21 - 30 MMOL/L Anion Gap 6 3 - 12 Glucose 191 (H) 70 - 100 MG/DL Blood Urea Nitrogen 15 7 - 25 MG/DL Creatinine 0.51 0.4 - 1.00 MG/DL Calcium 8.6 8.5 - 10.6 MG/DL eGFR Non >60 >60 mL/min eGFR >60 >60 mL/min POC GLUCOSE Collection Time: 01/18/18 6:53 AM # # Low-High Glucose, POC 180 (H) 70 - 100 MG/DL Scheduled Meds: acetaminophen (TYLENOL) tablet 1,000 mg 1,000 mg Oral Q8H* buPROPion (WELLBUTRIN) tablet 100 mg 100 mg Oral TID busPIRone (BUSPAR) tablet 30 mg 30 mg Oral BID collagenase (SANTYL) topical ointment Topical QDAY docusate (COLACE) capsule 100 mg 100 mg Oral BID ertapenem (INVANZ) IVP 1 g 1 g Intravenous Q24H* ferrous sulfate (FEOSOL, FEROSUL) tablet 325 mg 325 mg Oral TID w/ meals gabapentin (NEURONTIN) capsule 800 mg 800 mg Oral QID HYDROmorphone injection (DILAUDID) injection 1 mg 1 mg Intravenous Once per day on Wed insulin aspart U-100 (NOVOLOG FLEXPEN) injection PEN 0-14 Units 0-14 Units Subcutaneous 5 X Day insulin aspart U-100 (NOVOLOG FLEXPEN) injection PEN 8 Units 8 Units Subcutaneous TID after meals insulin glargine (LANTUS SOLOSTAR, BASAGLAR) injection PEN 20 Units 20 Units Subcutaneous QHS insulin NPH (HUMULIN N KwikPen) injection PEN 30 Units 30 Units Subcutaneous QDAY(21) lactobacillus rhamnosus GG (CULTURELLE) 15 billion cell capsule 1 capsule 1 capsule Oral BID w/meals levothyroxine (SYNTHROID) tablet 175 mcg 175 mcg Oral QDAY before breakfast lidocaine (LIDODERM) 5 % topical patch 2 patch 2 patch Topical QDAY nortriptyline (PAMELOR) capsule 25 mg 25 mg Oral QHS oxyCODONE SR (OXYCONTIN) tablet 10 mg 10 mg Oral BID pantoprazole DR (PROTONIX) tablet 40 mg 40 mg Oral QDAY(21) rivaroxaban (XARELTO) tablet 20 mg 20 mg Oral QDAY w/breakfast sodium chloride PF 0.9% flush 5-10 mL 5-10 mL Intravenous FLUSH TID vitamin A & D topical ointment Topical BID WATER FOR INJECTION, STERILE IJ SOLN (Cabinet Override) NOW Continuous Infusions: PRN and Respiratory Meds:alum/mag hydroxide/simeth Q6H PRN, calcium carbonate Q4H PRN, milk of magnesia (CONC) Q4H PRN, ondansetron (ZOFRAN) IV Q6H PRN, oxyCODONE Q4H PRN, pancrelipase 20,000 Units/ sodium bicarbonate 650 mg(#) PRN ( Catalogue Librarian from Rx) Physical Exam VS: BP 112/62 (BP Source: Arm, Left) | Pulse 108 | Temp 36.7 C (98.1 F) | Ht 160 cm (63") | Wt 94.6 kg (208 lb 9.2 oz) | LMP 01/14/2013 | SpO2 100% | BMI 36.95 kg/m Gen: awake, alert, NAD CV: RRR, no murmur Pulm: CTAB, no w/r Abd: nondistended, nontender Extremities: mild edema rle, s/p hemipelvectomy on left with dressings and wound vac in place Skin: warm, dry Neuro: alert, oriented, speech fluent and clear, eomi, at least antigravity strength in remaining 3 extremities Therapy Notes & Labs Reviewed. Ravi Pride DO Pager [phone] * Nani Lynch DO - 01/17/2018 2:21 PM CDT Formatting of this note may be different from the original. Infectious Diseases Progress Note Today's Date: 01/17/2018 Admission Date: 01/14/2018 Assessment: # GBS bacteremia w sepsis- source suspected left hip wound, less likely pna - Fever and leukocytosis began 12/20/17 - 4/3 L lower lobe infiltrate - read as atelectasis - 12/20 C. diff negative - 12/23 Bcx 09/21 set group B streptococcus; source seems most likely intra-pelvic; 12/24 bcx negative - CT pelvis 12/25: "Ill-defined fluid and air along the anterior margin of the surgical site away from the drain tip. However, no discrete drainable fluid collection is noted. - OR 01/10 for wound eval - no sign of infection - posterior wound starting to granulate, WV replaced; WV changed 01/12, wound clean with blood present, no purulence # Candiduria - 12/21/17 UA: wbc 2-10, negative nitrite, 1+ luukocytes, Culture > 100,000 Liliana sp - Sensitivities not done, unsure if fluconazole susceptible; repeat urine culture negative 12/28 but improved with micafungin so is suspicion for fluconazole resistance - Treating given indwelling melchor and inability to remove melchor d/t recent bladder repair - ? Candidal intertrigo - groin/mons - Cath change in OR 01/10 - no bladder leak at that time - Micafungin course completed 01/16 # s/p hemipelvectomy for Chondrosarcoma - 11/25/17 MRI: a large lesion throughout the entire left hemipelvis that appeared to be centered within the ilium - 11/30/17 open biopsy: Chondrosarcoma - 11/26/17 CT: few small pulmonary nodules. will resect the masses in the chest later - admission 12/13/17- - 12/14/17: left hemipelvectomy, jamil sacrectomy. Complicated with bladder and urethral injury. Added Cystoscopy with left ureteral stent insertion, Bladder neck repair, Urethroplasty and repair of urethral injury, Vaginal closure. - Stool saturating wound. Diverting colostomy done 12/30. -01/06 CT: left hemipelvectomy, edema w/in the operative bed- not changed except sl more gas, more focal gas/fluid alonger anterior/inferior and superior surgical margins. #night sweats - per pt worse past week - TSH high, T4 ok, on replacement, no hypotension /lyte disturbance suggestive of adrenal disease, no menses since probably 2012 per pt - stopped HRT just before surg*; getting intermittent steroid, no s/s alternate new infection # DVT - 11/30/17 IVC filter for DVT within the external iliac vein # Obese # HTN # DM # 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 # Depression # Generalized pain # abx allergy - allergic history to Cephalexin 'years ago' with skin rash and hot flash - tolerated Penicillin when she had dental caries Recommendations: 1. Cont ertapenem 1 gram daily - plan 7 more days IV antibiotic assuming no new wound concerns; stop 01/23 2. Monitor for abx toxicity with cbc, cmp 3. Will follow Staffed with attending, Dr. Lynch. I have seen, personally evaluated, and discussed the patient's care with Dr. Pedro, Infectious Diseases Fellow. I agree with the subjective notations, objective findings and agree with the plan of care as documented in this note with the exceptions noted. Nani Lynch, DO Division of Infectious Diseases Pager [phone] Interval History Afebrile, vitals stable. Feels "ok," she is tearful today, states "I have been through a lot." Feels PT is going alright. Wounds are fairly stable; reports trouble with the wound vac staying in place over the weekend, replaced this AM and no issues since. No significant pain, nausea, diarrhea, headache, skin rashes, or other concerns. Reviewed labs, stable. Vac with 1700 cc output. Antimicrobial Start date End date Erythromycin 12/13 Neomycin 12/13 12/13 Polymyxin B 12/14 12/14 Ertapenem 01/10 active Gentamycin 12/14 12/15 Clindamycin 12/14 12/22 Pip/tazo 12/22 01/10 Fluconazole 12/22 12/30 Vancomycin 12/23 12/27 Micafungin 12/30 01/16 Estimated Creatinine Clearance: 103 mL/min (based on SCr of 0.58 mg/dL). Medications Scheduled Meds: acetaminophen (TYLENOL) tablet 1,000 mg 1,000 mg Oral Q8H* buPROPion (WELLBUTRIN) tablet 100 mg 100 mg Oral TID busPIRone (BUSPAR) tablet 30 mg 30 mg Oral BID collagenase (SANTYL) topical ointment Topical QDAY docusate (COLACE) capsule 100 mg 100 mg Oral BID ertapenem (INVANZ) IVP 1 g 1 g Intravenous Q24H* ferrous sulfate (FEOSOL, FEROSUL) tablet 325 mg 325 mg Oral TID w/ meals gabapentin (NEURONTIN) capsule 900 mg 900 mg Oral Q8H HYDROmorphone injection (DILAUDID) injection 1 mg 1 mg Intravenous Once per day on Wed insulin aspart U-100 (NOVOLOG FLEXPEN) injection PEN 0-14 Units 0-14 Units Subcutaneous 5 X Day insulin aspart U-100 (NOVOLOG FLEXPEN) injection PEN 8 Units 8 Units Subcutaneous TID after meals insulin glargine (LANTUS SOLOSTAR, BASAGLAR) injection PEN 20 Units 20 Units Subcutaneous QHS insulin NPH (HUMULIN N KwikPen) injection PEN 30 Units 30 Units Subcutaneous QDAY(21) lactobacillus rhamnosus GG (CULTURELLE) 15 billion cell capsule 1 capsule 1 capsule Oral BID w/meals levothyroxine (SYNTHROID) tablet 175 mcg 175 mcg Oral QDAY before breakfast lidocaine (LIDODERM) 5 % topical patch 2 patch 2 patch Topical QDAY lidocaine 2% (20 mg/mL) injection 50 mL 50 mL SEE ADMIN INSTRUCTIONS Once per day on Wed nortriptyline (PAMELOR) capsule 25 mg 25 mg Oral QHS oxyCODONE SR (OXYCONTIN) tablet 10 mg 10 [address] Oral BID pantoprazole DR (PROTONIX) tablet 40 mg 40 mg Oral QDAY(21) rivaroxaban (XARELTO) tablet 20 mg 20 mg Oral QDAY w/breakfast sodium chloride PF 0.9% injection 20 mL 20 mL Intravenous Q8H* vitamin A & D topical ointment Topical BID Continuous Infusions: PRN and Respiratory Meds:alum/mag hydroxide/simeth Q6H PRN, calcium carbonate Q4H PRN, milk of magnesia (CONC) Q4H PRN, ondansetron (ZOFRAN) IV Q6H PRN, oxyCODONE Q4H PRN, pancrelipase 20,000 Units/ sodium bicarbonate 650 mg(#) PRN ( Catalogue Librarian from Rx) Physical Examination Vital Signs: Last Vital Signs: 24 Hour Range BP: 140/67 (01/17 1334) Temp: 37.3 C (99.2 F) (01/17 1334) Pulse: 125 (01/17 1334) Respirations: 13 PER MINUTE (01/17 133) SpO2: 94 % (01/17 133) O2 Delivery: None (Room Air) (01/17 1334) BP: (112-146)/(55-93) Temp: [36.7 C (98.1 F)-37.6 C (99.6 F)] Pulse: [105-129] Respirations: [13 PER MINUTE-22 PER MINUTE] SpO2: [92 %-100 %] O2 Delivery: None (Room Air) General appearance: alert, oriented, NAD; sitting up in bed HENT: no thrush, EOMI Lungs: clear bl, non-labored, no wheezing/rales Heart: Regular rhythm, reg rate, with no murmur Abdomen: obese, normal bowel sounds Ext: s/p left hemipelvectomy; There are areas of necrosis anterior wounds w/ induration- along pannus stable and no surrounding erythema. WV posterior, unable to visualize today. Skin: no generalized rashes; liliana/dependent edema in groin overall improved with stable anterior wounds w/ eschar Lines: PICC RUE No erythema Lab Review Hematology Recent Labs 01/15/18 0600 01/16/18 0530 01/17/18 0530 WBC 11.5* 10.4 10.3 HGB 6.5* 8.8* 8.9* HCT 19.2* 26.5* 25.7* PLTCT 662* 527* 465* Chemistry Recent Labs 01/15/18 0600 01/16/18 0530 01/17/18 0530 NA 135* 134* 135* K 4.1 4.4 4.4 CL 100 100 101 CO2 29 28 29 BUN 12 13 15 CR 0.58 0.58 0.58 GFR >60 >60 >60 GLU 177* 251* 192* CA 8.3* 8.6 8.6 Microbiology, Radiology and other Diagnostics Review Microbiology data reviewed. Pertinent radiology reviewed Chari Pedro DO Pager [phone] ID fellow * Leia Zimmerman - 01/17/2018 2:20 PM CDT CLINICAL NUTRITION Clinical Nutrition Follow-Up Summary Nutrition Assessment of Patient: Malnutrition Assessment: Adequately nourished prior to admission Current Oral Intake: Adequate Estimated Calorie Needs: 1660 (30kcal/kg of dw 55kg) Estimated Protein Needs: 100-120 (1.5-2.2g/kg of dw 55kg) Oral Diet Order: Diabetic 9907-0021 Kcal/day (60 g Carb/meal, 30 g Carb/HS snack ) 3-day EN avg: Intake (calories) Daily Average : 869 kilocalories (100% of goal to meet 50% of needs) Intake (protein) Daily Average : 56 grams (74% of goal to meet 63-76% of needs)) Current EN Order: Nutren 1.5 @ 75ml/hr x's 6 hrs from 0944-6847, 3 [employer]Source/ day (At goal will provide: 855kcal (52% est needs), 76 g protein (63-76% est needs), and 345ml free water/day). She is also getting 30ml water flush Q 4 hrs. 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 PMH of DM (A1c 6.5) and depression. Pt with stool soilage issues prohibiting wound healing had colostomy 12/30. TPN was added to enhance nutrition followed by supplemental EN. I&D with wound vac 01/10. Pt weight decreased ~12% initially s/p amputation. Total leg amputation accounts for 16% wt loss. Current rehab weight of 209# is stable with initial loss. Pt pre- surgery wt was 231#. Pt reports a good appetite and is eating marginal to adequate via documentation (improving from acute side). Nutren 1.5 continues to provide ~50% of needs in presence of increased needs for wound healing and recent poor PO intake. Pt with lethargy and slow speech, had a difficult time clearly reporting current PO intake/appetite. She stated doing okay with food intake, but reported variation dependent on food preference more than appetite issues. Calorie Count started today per team. Today, pt was eating 1 small hot dog, small side salad, and side of fruit (not completed at time of visit.). DM diet was not discussed due to pt state. She reported no food allergies. Potential risk screening is unchanged from acute admit; no new weight loss reported. Net I/O -26L total since 01/03. No significant edema. FCD output 01/16. BG POC 167; MDCF + 3 insulins on board. Keyla noted. Recommendation: Continue current EN order until PO Intake is proven to be adequate via Calorie Count. Increased protein at this time is desired for wound healing. Nocturnal EN will provide ~50% of kcal, 63-76% of protein needs. Intervention / Plan: Assessed need for continued EN Monitor PO intake, wt, labs, skin, gi, meds, fluids Nutrition Diagnosis: Nutrition Diagnosis: Increased nutrient needs, specify: Etiology: protein: demand for wound healing Signs & Symptoms: s/p hemipelvectomy Goals: PO intake to meet >85% nutritional needs Time Frame: Throughout Stay Transition from enteral to oral Time Frame: Within [address], LD *[id number] * Va Balir MD - 01/17/2018 11:30 AM CDT Formatting of this note may be different from the original. Endocrinology Hospital Follow Up Visit Today's Date: 01/17/2018 Admission Date: 01/14/2018 Assessment: 1. DM type 2 with stress hyperglycemia A1c 6.5 , controlled CAMP TENDER regimen: Metformin thousand milligrams twice a day, jardiance 25 mg daily Hypoglycemic episodes on this regimen: None and not checking blood sugars at home Follows up with for diabetes management: Primary care physician at [facility] Diabetic-complications assessment: Retinopathy: None Peripheral neuropathy: Yes on treatment Autonomic neuropathy: None Nephropathy: None Macrovascular complications: None Risk factor assessment: Last lipid profile - None on file On ACEi/ARB: Yes On Statin: yes 2. 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 CAMP TENDER 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 daily TSH 2.1 this admission Forgets to take her levothyroxine sometime 3. Enteral Nutrition 4. Left leg amputation 5. Hyperlipidemia On lovastatin 6. Chondorsarcoma Pelvis s/p hemipelvectomy 7. Obesity Class III Recommendations: Patient with blood sugar control at target or near target so no changes today Continue with Lantus 20 units QHS Continue with NovoLog 8 units postmeal Continue with MDCF x5 Continue NPH 30 units with nocturnal tube feeds - please hold NPH if tube feed are held and give at the start of tube feed TSH elevation is likely nonthyroidal in nature as TSH durng admit was 2.1. She will need repeat TFTS in 6-8 weeks Current TF regimen : Nutren 1.5, goal rate 75ml/hr x 6hr at night starting 2200 History of Present Illness Beata Kaiser is a 52 y.o. She feels that she is eating pretty well with most of her meals. Tolerating enteral feeds at night, though would like to have her back out when possible. She tells me a calorie count will be done soon. Blood glucose readings in the past 24 hours, 145-181. Estimated Creatinine Clearance: 103 mL/min (based on SCr of 0.58 mg/dL). Review of Systems The patient denies headache, abdominal pain, shortness of air, chest pain, nausea or vomiting. Medications Scheduled Meds: acetaminophen (TYLENOL) tablet 1,000 mg 1,000 mg Oral Q8H* buPROPion (WELLBUTRIN) tablet 100 mg 100 mg Oral TID busPIRone (BUSPAR) tablet 30 mg 30 mg Oral BID collagenase (SANTYL) topical ointment Topical QDAY docusate (COLACE) capsule 100 mg 100 mg Oral BID ertapenem (INVANZ) IVP 1 g 1 g Intravenous Q24H* ferrous sulfate (FEOSOL, FEROSUL) tablet 325 mg 325 mg Oral TID w/ meals gabapentin (NEURONTIN) capsule 900 mg 900 mg Oral Q8H HYDROmorphone injection (DILAUDID) injection 1 mg 1 mg Intravenous Once per day on Wed insulin aspart U-100 (NOVOLOG FLEXPEN) injection PEN 0-14 Units 0-14 Units Subcutaneous 5 X Day insulin aspart U-100 (NOVOLOG FLEXPEN) injection PEN 8 Units 8 Units Subcutaneous TID after meals insulin glargine (LANTUS SOLOSTAR, BASAGLAR) injection PEN 20 Units 20 Units Subcutaneous QHS insulin NPH (HUMULIN N KwikPen) injection PEN 30 Units 30 Units Subcutaneous QDAY(21) lactobacillus rhamnosus GG (CULTURELLE) 15 billion cell capsule 1 capsule 1 capsule Oral BID w/meals levothyroxine (SYNTHROID) tablet 175 mcg 175 mcg Oral QDAY before breakfast lidocaine (LIDODERM) 5 % topical patch 2 patch 2 patch Topical QDAY lidocaine 2% (20 mg/mL) injection 50 mL 50 mL SEE ADMIN INSTRUCTIONS Once per day on Wed nortriptyline (PAMELOR) capsule 25 mg 25 mg Oral QHS oxyCODONE SR (OXYCONTIN) tablet 20 mg 20 mg Oral BID pantoprazole DR (PROTONIX) tablet 40 mg 40 mg Oral QDAY(21) rivaroxaban (XARELTO) tablet 20 mg 20 mg Oral QDAY w/breakfast sodium chloride PF 0.9% injection 20 mL 20 mL Intravenous Q8H* vitamin A & D topical ointment Topical BID Continuous Infusions: PRN and Respiratory Meds:alum/mag hydroxide/simeth Q6H PRN, calcium carbonate Q4H PRN, milk of magnesia (CONC) Q4H PRN, ondansetron (ZOFRAN) IV Q6H PRN, oxyCODONE Q4H PRN, pancrelipase 20,000 Units/ sodium bicarbonate 650 mg(#) PRN ( Catalogue Librarian from Rx) Physical Examination Vital Signs: Last Vital Signs: 24 Hour Range BP: 116/58 (01/18 308) Temp: 37.2 C (98.9 F) (01/18 308) Pulse: 107 (01/18 308) Respirations: 16 PER MINUTE (01/18 308) SpO2: 95 % (01/18 308) O2 Delivery: None (Room Air) (01/18 308) BP: (112-128)/(55-63) Temp: [36.8 C (98.2 F)-37.2 C (98.9 F)] Pulse: [105-110] Respirations: [16 PER MINUTE] SpO2: [92 %-99 %] O2 Delivery: None (Room Air) General appearance: Sitting up in bed, NAD, OG + Resp: breathing comfortably Abd; Colostomy, normal active bowel sounds Ext: s/p left hemipelvectomy Neuro: Alert, oriented and cooperative Lab Review Point of Care Testing (Last 24 hours) Recent Labs 01/15/18 2023 01/16/18 0345 01/16/18 0636 01/16/18 1204 01/16/18 1650 01/16/18 2108 01/17/18 0301 01/17/18 0644 GLUPOC 193* 204* 209* 168* 149* 145* 181* 167* Recent Labs 01/15/18 0600 01/16/18 0530 01/17/18 0530 NA 135* 134* 135* K 4.1 4.4 4.4 CL 100 100 101 CO2 29 28 29 GAP 6 6 5 BUN 12 13 15 CR 0.58 0.58 0.58 GLU 177* 251* 192* CA 8.3* 8.6 8.6 Recent Labs 01/15/18 0600 01/16/18 0530 01/17/18 0530 WBC 11.5* 10.4 10.3 HGB 6.5* 8.8* 8.9* HCT 19.2* 26.5* 25.7* PLTCT 662* 527* 465* Estimated Creatinine Clearance: 103 mL/min (based on SCr of 0.58 mg/dL). Vitals: 01/14/18 1615 01/17/18 0520 Weight: 99 kg (218 lb 4.8 oz) 95 kg (209 lb 7 oz) Thyroid Studies Lab Results Component Value Date/Time TSH 16.790 (H) 01/09/2018 01:40 PM No results found for: FREET3, O1GRHRSDH, THYBINDGLB Va Blair MD p 0410 * Adrienne Zarate MD - 01/17/2018 10:39 AM CDT Formatting of this note may be different from the original. Subjective: No acute events overnight. Pain has been adequately controlled. No issues with wound vac overnight. Patient asking when corpak might come out. Objective: Blood pressure 116/58, pulse 107, temperature 37.2 C (98.9 F), height 160 cm (63"), weight 95 kg (209 lb 7 oz), last menstrual period 2012, SpO2 95 %. General: AAOx3, NAD Cardiac: tachycardic Respirations: Unlabored Abdomen: soft, nd, induration about the distal pannus around wounds with scabbing and underlying granulation tissue Extremities: Dressings with mild serous drainage from periods when wound vac not functioning, WV holding seal currently WV: 1700 ml/24 hrs No results for input(s): PTT, INR in the last 72 hours. CBC w/Diff Lab Results Component Value Date/Time WBC 10.3 01/17/2018 05:30 AM HGB 8.9 (L) 01/17/2018 05:30 AM HCT 25.7 (L) 01/17/2018 05:30 AM PLTCT 465 (H) 01/17/2018 05:30 AM Basic Metabolic Profile Lab Results Component Value Date/Time NA 135 (L) 01/17/2018 05:30 AM K 4.4 01/17/2018 05:30 AM CL 101 01/17/2018 05:30 AM CO2 29 01/17/2018 05:30 AM GAP 5 01/17/2018 05:30 AM Lab Results Component Value Date/Time BUN 15 01/17/2018 05:30 AM CR 0.58 01/17/2018 05:30 AM GLU 192 (H) 01/17/2018 05:30 AM A/P: 52 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 -Management and pain control per rehab -Recommend continue melchor catheter -Xarelto for DVT -MWF WV changes with wound team -Recommend ongoing psychology visits per patient request for coping strategies -Compression shorts throughout day as able -Surgical dressings may be changed PRN with dry sterile gauze and hypafix tape -Other wounds per wound team recs -Recommend calorie count and repeat albumin and prealbumin to assess nutritional status and possibility for removal of corpak -Will continue to follow, call with questions Adrienne Zarate MD [id number] * Ruth Allen MD - 01/17/2018 7:10 AM CDT Formatting of this note may be different from the original. ATTESTATION I personally performed the banuelos portions of the E/M visit, discussed case with resident and concur with resident documentation of history, physical exam, assessment, and treatment plan unless otherwise noted. Labs and VS reviewed and stable. My additions to the resident's note are in the text and highlighted in blue. Pain team with no addn'l recs. Will try to wean opioids as she heals. Will need to reschedule CTS and imaging until after rehab. Hopefully can d/c TF soon. Will need to see if she has compression shorts that would work with wounds and wound vac. Patient remains medically stable to participate in IRF program. Staff name: Ruth Allen MD Date: 01/17/2018 Physical Medicine & Rehabilitation Progress Note Today's Date: 01/17/2018 Admission Date: 01/14/2018 LOS: 3 days Insurance: [facility] Principal Problem: Left hip amputation status Active Problems: Chondrosarcoma (HCC) Acute blood loss as cause of postoperative anemia Depression Anxiety DM (diabetes mellitus) (HCC) 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 Chronic pain Post-op pain Bacteremia Amputated left leg (HCC) Candiduria Assessment/Plan: Beata Lema a 52 y.o.female[facility] the following issues : 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 Goals: min assist w/c level, min assist with ADLs Tentative discharge date: 01/29/18 Recommended therapy after discharge: tbd Recommended equipment: tbd Daily Functional Update: Transfers Device Sit to Stand Transfer: Assistive Device: Mechanical Lift (01/15/2018 9:30 AM) No Data Recorded Gait Device Assist Required Distance Gait: Assistive Device: IV Pole (12/01/2017 11:00 AM) No Data Recorded Gait Distance: 400 feet (12/01/2017 11:00 AM) Toileting Assist Required Equipment Toilet Transfer Toileting Assist: Total Assist (01/06/2018 1:00 PM) No Data Recorded No Data Recorded Dressing Lower Body LE Dressing Assist: Maximum Assist (01/15/2018 8:00 AM) Chrondrosarcoma s/p hemipelvectomy - 11/25/17 MRI: a large lesion throughout the entire left hemipelvis that appeared to be centered within the ilium - 11/30/17 open biopsy showed chondrosarcoma - 12/14/17: left hemipelvectomy, jamil sacrectomy - 01/06 CT: left hemipelvectomy, edema w/in the operative bed- not changed except sl more gas, more focal gas/fluid alonger anterior/inferior and superior surgical margins >wound vac in place. Changes M/W/F by wound vac team. IV dilaudid PRN for WV changes + lidocaine into sponge during acute hospitalization - wean off IV pain meds as able >Change dressings prn with dry sterile gauze and hypafix tape >vitamin A &D for labia wound, collagenase for left lower abdomen wound healing Post-op pain in setting of chronic pain Phantom limb pain, neuropathic pain >scheduled Tylenol, oxycontin 20mg BID and oxycodone 20mg q3h prn. Lidoderm patch prn. > Gabapentin 900mg TID, nortriptyline 25mg HS s/p diverting colostomy - Stool saturating wound. Diverting colostomy done 12/30 >wound/ostomy consulted Bladder injury, recent repair - bladder and urethral injuries during hemipelvectomy on 12/14/17 - underwent cystoscopy with left ureteral stent insertion, Bladder neck repair, Urethroplasty and repair of urethral injury, Vaginal closure >continue melchor catheter Chest lesions (metastases?) - 11/26/17 CT: few small pulmonary nodules. >plan is to resect the masses in the chest later >CT chest scheduled for 01/20 with f/u with CTS surgery (may need to come see in rehab) GBS bacteremia w/ sepsis due to left hip wound - Fever and leukocytosis began 12/20/17, Bcx 1/2 positive for GBS on 12/23 - CT pelvis 12/25 showed ill-defined fluid and air along the anterior margin of the surgical site away from the drain tip. However, no discrete drainable fluid collection is noted. - OR 01/10 for wound eval - no sign of infection - posterior wound starting to granulate, WV replaced; WV changed 01/12, wound clean with blood present, no purulence >per ID recs, continue ertapenem 1 gram daily -->plan 10more days IV antibiotic assuming no new wound concerns; stop 01/23 >ID to continue to follow in rehab (ordered Wednesday) Candiduria - 12/21/17 UA: wbc 2-10, negative nitrite, 1+ luukocytes, Culture > 100,000 Liliana sp - Treating given indwelling melchor and inability to remove melchor d/t recent bladder repair - Cath change in OR 01/10 - no bladder leak at that time > micafungin d/c'ed on 01/17 DVT - 11/30/17 IVC filter for DVT within the external iliac vein >cont Xarelto ABLA - Hgb 7.8 on admission to rehab - no concern for current bleed at this time >monitor labs > 01/15: Hgb 6.5, transfused 1unit pRBCs T2DM - A1c 6.5%, controlled - CAMP TENDER regimen: Metformin thousand milligrams twice a day, [id number] mg daily >Continue with Lantus 22 units QHS, novolog 8u postmeal, MDCF 5x per day >Continue NPH 30 units with nocturnal tube feeds - please hold NPH if tube feed are held and give at the start of tube feed 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 - CAMP TENDER 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 daily - TSH 2.1 this admission >continue CAMP TENDER levothyroxine >She will need repeat thyroid function tests in 6-8 weeks MDD CLAUDIA Adjustment disorder with mixed anxiety and depressed mood > continue CAMP TENDER Wellbutrin and buspar HLD: holding CAMP TENDER statin Insomnia: nortriptyline 25mg qhs Skin:There are no pressure sores currently. Bowel:ostomy Bladder:melchor Nutrition:Current diet: diabeticand nocturnal tube feeds - Nutren 1.5 from [id number] at 75mL/hr through Corpakwith3 protein packs per day, H2O 30mL q4h - Case Packer And Sealer consult and d/c tube feeds once eating to meet needs Mental Health:consult neuropsychology to provide support / counseling DVT Prophylaxis:Xarelto, will discharge on it Subjective NEON. Pt received 1 unit pRBCs over weekend with improvement in Hgb. Wound vac putting out quite a bit, ortho saw pt on Wednesday w/ no changes in care. Pt feels ok this morning. Pain well controlled, eating pretty good - will discuss TFs today and possibly pulling Corpak. Pt denies any other acute complaints today. Objective Vital Signs: Last Filed Vital Signs: 24 Hour Range BP: 116/58 (01/18 308) Temp: 37.2 C (98.9 F) (01/18 308) Pulse: 107 (01/18 308) Respirations: 16 PER MINUTE (01/18 308) SpO2: 95 % (01/18 308) O2 Delivery: None (Room Air) (01/18 308) BP: (112-128)/(55-63) Temp: [36.2 C (97.2 F)-37.2 C (98.9 F)] Pulse: [105-110] Respirations: [16 PER MINUTE] SpO2: [92 %-99 %] O2 Delivery: None (Room Air) Intensity Pain Scale 0-10 (Pain 1): 6 (01/17/18 0638) Vitals: 01/14/18 1615 01/17/18 0520 Weight: 99 kg (218 lb 4.8 oz) 95 kg (209 lb 7 oz) Intake/Output Summary: (Last 24 hours) Intake/Output Summary (Last 24 hours) at 01/17/18 0710 Last data filed at 01/17/18 0643 Gross per 24 hour Intake 2345 ml Output 6075 ml Net -3730 ml Stool Occurrence: 1 Last BM Date: 01/16/18 Lab: Results for orders placed or performed during the hospital encounter of (from the past 24 hour(s)) POC GLUCOSE Collection Time: 01/16/18 12:04 PM # # Low-High Glucose, POC 168 (H) 70 - 100 MG/DL POC GLUCOSE Collection Time: 01/16/18 4:50 PM # # Low-High Glucose, POC 149 (H) 70 - 100 MG/DL POC GLUCOSE Collection Time: 01/16/18 9:08 PM # # Low-High Glucose, POC 145 (H) 70 - 100 MG/DL POC GLUCOSE Collection Time: 01/17/18 3:01 AM # # Low-High Glucose, POC 181 (H) 70 - 100 MG/DL CBC CELLULAR THERAPEUTICS Collection Time: 01/17/18 5:30 AM # # Low-High White Blood Cells 10.3 4.5 - 11.0 K/UL RBC 3.10 (L) 4.0 - 5.0 M/UL Hemoglobin 8.9 (L) 12.0 - 15.0 GM/DL Hematocrit 25.7 (L) 36 - 45 % MCV 82.9 80 - 100 FL MCH 28.6 26 - 34 PG MCHC 34.5 32.0 - 36.0 G/DL RDW 17.2 (H) 11 - 15 % Platelet Count 465 (H) 150 - 400 K/UL MPV 7.1 7 - 11 FL POC GLUCOSE Collection Time: 01/17/18 6:44 AM # # Low-High Glucose, POC 167 (H) 70 - 100 MG/DL Scheduled Meds: acetaminophen (TYLENOL) tablet 1,000 mg 1,000 mg Oral Q8H* buPROPion (WELLBUTRIN) tablet 100 mg 100 mg Oral TID busPIRone (BUSPAR) tablet 30 mg 30 mg Oral BID collagenase (SANTYL) topical ointment Topical QDAY docusate (COLACE) capsule 100 mg 100 mg Oral BID ertapenem (INVANZ) IVP 1 g 1 g Intravenous Q24H* ferrous sulfate (FEOSOL, FEROSUL) tablet 325 mg 325 mg Oral TID w/ meals gabapentin (NEURONTIN) capsule 900 mg 900 mg Oral Q8H HYDROmorphone injection (DILAUDID) injection 1 mg 1 mg Intravenous Once per day on Wed insulin aspart U-100 (NOVOLOG FLEXPEN) injection PEN 0-14 Units 0-14 Units Subcutaneous 5 X Day insulin aspart U-100 (NOVOLOG FLEXPEN) injection PEN 8 Units 8 Units Subcutaneous TID after meals insulin glargine (LANTUS SOLOSTAR, BASAGLAR) injection PEN 20 Units 20 Units Subcutaneous QHS insulin NPH (HUMULIN N KwikPen) injection PEN 30 Units 30 Units Subcutaneous QDAY(21) lactobacillus rhamnosus GG (CULTURELLE) 15 billion cell capsule 1 capsule 1 capsule Oral BID w/meals levothyroxine (SYNTHROID) tablet 175 mcg 175 mcg Oral QDAY before breakfast lidocaine (LIDODERM) 5 % topical patch 2 patch 2 patch Topical QDAY lidocaine 2% (20 mg/mL) injection 50 mL 50 mL SEE ADMIN INSTRUCTIONS Once per day on Wed micafungin (MYCAMINE) 100 mg in sodium chloride 0.9% (NS) 100 mL IVPB (MB+) 100 mg Intravenous Q24H* nortriptyline (PAMELOR) capsule 25 mg 25 mg Oral QHS oxyCODONE SR (OXYCONTIN) tablet 20 mg 20 mg Oral BID pantoprazole DR (PROTONIX) tablet 40 mg 40 mg Oral QDAY(21) rivaroxaban (XARELTO) tablet 20 mg 20 mg Oral QDAY w/breakfast sodium chloride PF 0.9% injection 20 mL 20 mL Intravenous Q8H* vitamin A & D topical ointment Topical BID Continuous Infusions: PRN and Respiratory Meds:alum/mag hydroxide/simeth Q6H PRN, calcium carbonate Q4H PRN, milk of magnesia (CONC) Q4H PRN, ondansetron (ZOFRAN) IV Q6H PRN, oxyCODONE Q4H PRN, pancrelipase 20,000 Units/ sodium bicarbonate 650 mg(#) PRN ( Catalogue Librarian from Rx) Physical Exam VS: BP 116/58 (BP Source: Arm, Left) | Pulse 107 | Temp 37.2 C (98.9 F) | Ht 160 cm (63") | Wt 95 kg (209 lb 7 oz) Comment: wound vac removed off footboard of bed | LMP 01/14/2013 | SpO2 95% | BMI 37.10 kg/m Gen: awake, alert, NAD CV: RRR, no murmur Pulm: CTAB, no w/r Abd: nondistended, nontender Extremities: mild edema rle, s/p hemipelvectomy on left with dressings and wound vac in place Skin: warm, dry Neuro: alert, oriented, speech fluent and clear, eomi, at least antigravity strength in remaining 3 extremities Therapy Notes & Labs Reviewed. Krunal Peraza MD Pager [phone] * Darlene Garcia RN - 01/16/2018 6:[address] Pride text paged about getting an order for alteplase for one of the two lumens on pt's PICC line. Night nurse aware. * Adrienne Zarate MD - 01/16/2018 4:40 PM CDT Formatting of this note may be different from the original. Subjective: No acute events overnight. Pain controlled. Tolerating diet and feeds. Working well with therapies. No new issues or concerns. Objective: Blood pressure 128/63, pulse 106, temperature 36.8 C (98.2 F), height 160 cm (63"), weight 99 kg (218 lb 4.8 oz), last menstrual period 2012, SpO2 99 %. General: AAOx3, NAD Cardiac: tachycardic Respirations: Unlabored Abdomen: soft, nd, induration about the distal pannus around wounds with scabbing and underlying granulation tissue Extremities: Dressings with serous drainage as wound vac not maintaining suction WV: 1275 ml/24 hrs No results for input(s): PTT, INR in the last 72 hours. 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 -Management and pain control per rehab -Recommend continue melchor catheter -Xarelto for DVT -MWF WV changes with wound team -Recommend ongoing psychology visits per patient request for coping strategies -Compression shorts throughout day as able -Surgical dressings may be changed PRN with dry sterile gauze and hypafix tape -Other wounds per wound team recs -Will continue to follow, call with questions Adrienne Zarate MD [id number] * Darlene Garcia RN - 01/16/2018 4:13 PM CDT After spending an 90 minutes trying to reinforce wound vac dressing to stop it from leaking and alarming, discussed with pt that I would need to remove wound vac dressing and replace it with a sterile guaze dressing. Pt upset that I would have to take dressing off because she had had it put on in the OR with anesthesia. Pt tearful and anxious. Told pt that I would contact the rehab doctor to see if he got a hold of ortho to redress the wound vac dressing. Pt given oxycodone 20 mg in anticipation of dressing change. Ortho here to redo wound vac dressing. Wound vac dressing still leaks at times , but is fixable with minimal reinforcement. * Arnaldo Delacruz MD - 01/16/2018 9:29 AM CDT Formatting of this note may be different from the original. Physical Medicine & Rehabilitation Progress Note Patient name: Beata Kaiser Patient age: 52 y.o. Today's Date: 01/16/2018 Admission Date: 01/14/2018 LOS: 2 days Assessment/Plan: Active Problems: Chondrosarcoma (HCC) Acute blood loss as cause of postoperative anemia Depression Anxiety DM (diabetes mellitus) (HCC) 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 Post-op pain Bacteremia Amputated left leg (HCC) Candiduria Amputation of leg (HCC) Beata Kaiser is a 52 y.o. female admitted to [facility] on 01/14/18 with the following issues : s/p hemipelvectomy due to chondrosarcoma Impairments: amputation (lower extremity), pain and poor activity tolerance Activity Limitations: bathing, dressing - lower, toileting, transfers and wheelchair Participation Restrictions: unable to return home safely Rehabilitation Plan Patient will be admitted to inpatient rehabilitation for comprehensive therapies to include Physical therapy, Occupational therapy and Speech therapy Rehabilitation Prognosis: Fair to good Tolerance for three hours of therapy a day: fair to good Goals/Barriers/Facilitators Family / Patient Goals: return home with family assistance Mobility Goals: mod-I w/c level Activities of Daily Living (ADLs) Goals: Overall goal is Modified independent Cognition / Communication Goals: Speech therapy will evaluate and treat cognition and communication deficits and assess for safe swallow Barriers & Interventions: Caregiver Apprehension: Arrange caregiver support and discuss barriers and patient progress with caregivers when appropriate. Functioning at Wheelchair Level: Adaptive equipment, create wide,/clear paths, home modifications, alternative transportation arrangements, vehicle modifications, pursue home ramp access, and remove home obstacles. [place] of Care: Initiate interdisciplinary rehabilitation to improve functional independence and reduce burden of care. Facilitators: treated depression / anxiety and patient motivation Current Medical Problems/Risks of Medical Complications/Management Hospital problems and plan: Chrondrosarcoma s/p hemipelvectomy Post-op pain - 11/25/17 MRI: a large lesion throughout the entire left hemipelvis that appeared to be centered within the ilium - 11/30/17 open biopsy showed chondrosarcoma - 12/14/17: left hemipelvectomy, jamil sacrectomy -01/06 CT: left hemipelvectomy, edema w/in the operative bed- not changed except sl more gas, more focal gas/fluid alonger anterior/inferior and superior surgical margins > wound vac in place. Changes M/W/F by wound vac team. IV dilaudid PRN for WV changes + lidocaine into sponge during acute hospitalization > Change dressings prn with xeroform, dry gauze, and hypafix tape > pain control with scheduled Tylenol, oxycontin 20mg BID and oxycodone 20mg q3h prn. Lidoderm patch prn. Gabapentin 300mg TID > vitamin A & D for labia wound, collagenase for left lower abdomen wound healing 01/15: RN reports 400ml serosanguinous drainage over last 2 hours. Paged Ortho to update. s/p diverting colostomy - Stool saturating wound. Diverting colostomy done 12/30 > wound/ostomy consulted 01/16: Orthopedic surgery was contacted yesterday regarding increased drainage and low Hb requiring transfusion. They will come evaluate today. Bladder injury, recent repair - bladder and urethral injuries during hemipelvectomy on 12/14/17 - underwent cystoscopy with left ureteral stent insertion, Bladder neck repair, Urethroplasty and repair of urethral injury, Vaginal closure > continue melchor catheter Chest lesions (metastases?) - 11/26/17 CT: few small pulmonary nodules. > plan is to resect the masses in the chest later > CT chest scheduled for 01/20 with f/u with CTS surgery (may need to come see in rehab) GBS bacteremia w/ sepsis due to left hip wound - Fever and leukocytosis began 12/20/17, Bcx 1/2 positive for GBS on 12/23 - CT pelvis 12/25 showed ill-defined fluid and air along the anterior margin of the surgical site away from the drain tip. However, no discrete drainable fluid collection is noted. - OR 01/10 for wound eval - no sign of infection - posterior wound starting to granulate, WV replaced; WV changed 01/12, wound clean with blood present, no purulence > per ID recs, continue ertapenem 1 gram daily -->plan 10more days IV antibiotic assuming no new wound concerns; stop 01/23 > ID to continue to follow in rehab (will place consult Wednesday) Candiduria - 12/21/17 UA: wbc 2-10, negative nitrite, 1+ luukocytes, Culture > 100,000 Liliana sp - Treating given indwelling melchor and inability to remove melchor d/t recent bladder repair - Cath change in OR 01/10 - no bladder leak at that time > per ID recs, continue micafungin ~another 3days given cath change in OR on 01/10; stop 01/16 DVT - 11/30/17 IVC filter for DVT within the external iliac vein > cont Xarelto ABLA - Hgb 7.8 on admission to rehab - no concern for current bleed at this time > monitor labs T2DM - A1c 6.5%, controlled - CAMP TENDER regimen: Metformin thousand milligrams twice a day, [id number] mg daily > Continue with Lantus 22 units QHS, novolog 8u postmeal, MDCF 5x per day > Continue NPH 30 units with nocturnal tube feeds - please hold NPH if tube feed are held and give at the start of tube feed 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 - CAMP TENDER 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 daily - TSH 2.1 this admission > continue CAMP TENDER levothyroxine > She will need repeat thyroid function tests in 6-8 weeks MDD CLAUDIA Adjustment disorder with mixed anxiety and depressed mood > continue CAMP TENDER Wellbutrin and buspar HLD: holding CAMP TENDER statin Insomnia: nortriptyline 25mg qhs Skin: There are no pressure sores currently. Bowel: ostomy Bladder: melchor Nutrition: Current diet: diabetic and nocturnal tube feeds - Nutren 1.5 [id number] at 75mL/hr through Corpak with 3 protein packs per day, H2O 30mL q4h Mental Health: consult neuropsychology to provide support / counseling DVT Prophylaxis: Xarelto, will discharge on it Arnaldo Delacruz MD Subjective Beata Kaiser is a 52 y.o. female. Patient is concerned about persistent drainage. She is sleeping well and reports her pain remains well controlled. She denies SOB, CP, N&V. Review of Systems - A 10 point review of systems was negative accept where reported in the HPI Medications Scheduled Meds: acetaminophen (TYLENOL) tablet 1,000 mg 1,000 mg Oral Q8H* buPROPion (WELLBUTRIN) tablet 100 mg 100 mg Oral TID busPIRone (BUSPAR) tablet 30 mg 30 mg Oral BID collagenase (SANTYL) topical ointment Topical QDAY docusate (COLACE) capsule 100 mg 100 mg Oral BID ertapenem (INVANZ) IVP 1 g 1 g Intravenous Q24H* ferrous sulfate (FEOSOL, FEROSUL) tablet 325 mg 325 mg Oral TID w/ meals gabapentin (NEURONTIN) capsule 900 mg 900 mg Oral Q8H [START ON 01/17/2018] HYDROmorphone injection (DILAUDID) injection 1 mg 1 mg Intravenous Once per day on Wed insulin aspart U-100 (NOVOLOG FLEXPEN) injection PEN 0-14 Units 0-14 Units Subcutaneous 5 X Day insulin aspart U-100 (NOVOLOG FLEXPEN) injection PEN 8 Units 8 Units Subcutaneous TID after meals insulin glargine (LANTUS SOLOSTAR, BASAGLAR) injection PEN 20 Units 20 Units Subcutaneous QHS insulin NPH (HUMULIN N KwikPen) injection PEN 30 Units 30 Units Subcutaneous QDAY(21) lactobacillus rhamnosus GG (CULTURELLE) 15 billion cell capsule 1 capsule 1 capsule Oral BID w/meals levothyroxine (SYNTHROID) tablet 175 mcg 175 mcg Oral QDAY before breakfast lidocaine (LIDODERM) 5 % topical patch 2 patch 2 patch Topical QDAY [START ON 01/17/2018] lidocaine 2% (20 mg/mL) injection 50 mL 50 mL SEE ADMIN INSTRUCTIONS Once per day on Wed micafungin (MYCAMINE) 100 mg in sodium chloride 0.9% (NS) 100 mL IVPB (MB+) 100 mg Intravenous Q24H* nortriptyline (PAMELOR) capsule 25 mg 25 mg Oral QHS oxyCODONE SR (OXYCONTIN) tablet 20 mg 20 mg Oral BID pantoprazole DR (PROTONIX) tablet 40 mg 40 mg Oral QDAY(21) rivaroxaban (XARELTO) tablet 20 mg 20 mg Oral QDAY w/breakfast sodium chloride PF 0.9% injection 20 mL 20 mL Intravenous Q8H* vitamin A & D topical ointment Topical BID Continuous Infusions: PRN and Respiratory Meds:alum/mag hydroxide/simeth Q6H PRN, calcium carbonate Q4H PRN, milk of magnesia (CONC) Q4H PRN, ondansetron (ZOFRAN) IV Q6H PRN, oxyCODONE Q4H PRN, pancrelipase 20,000 Units/ sodium bicarbonate 650 mg(#) PRN ( Catalogue Librarian from Rx) Objective Vital Signs: Last Filed Vital Signs: 24 Hour Range BP: 116/63 (01/17 800) Temp: 36.2 C (97.2 F) (01/17 800) Pulse: 109 (01/17 800) Respirations: 16 PER MINUTE (01/17 800) SpO2: 94 % (01/17 800) O2 Delivery: None (Room Air) (04/29 0800) BP: (108-132)/(55-66) Temp: [36.2 C (97.2 F)-37.1 C (98.7 F)] Pulse: [107-116] Respirations: [16 PER MINUTE-20 PER MINUTE] SpO2: [93 %-99 %] O2 Delivery: None (Room Air) Intensity Pain Scale 0-10 (Pain 1): 3 (01/15/18 1027) Vitals: 01/14/18 1615 Weight: 99 kg (218 lb 4.8 oz) Intake/Output Summary: (Last 24 hours) Intake/Output Summary (Last 24 hours) at 01/16/18 0929 Last data filed at 01/16/18 0910 Gross per 24 hour Intake 2317.5 ml Output 4775 ml Net -2457.5 ml Last BM Date: 01/14/18 Physical Exam VS: BP 116/63 (BP Source: Arm, Left) | Pulse 109 | Temp 36.2 C (97.2 F) | Ht 160 cm (63") | Wt 99 kg (218 lb 4.8 oz) | LMP 01/14/2013 | SpO2 94% | BMI 38.67 kg/m Gen: AOX3, NAD HEENT: EOMI, MMM Heart: Extremtities well perfused Lungs: Good inspiratory effort without recruitment of accessory muscles Skin: Macerated incision site w/ granulation tissue, serosanguinous drainage. Abd: Soft, non-distended Ext: Lt hemipelvectomy * Linus Pisano MD - 01/15/2018 5:09 PM CDT Formatting of this note may be different from the original. Endocrinology Hospital Follow Up Visit Today's Date: 01/15/2018 Admission Date: 01/14/2018 Assessment: 1. DM type 2 with stress hyperglycemia A1c 6.5 , controlled CAMP TENDER regimen: Metformin thousand milligrams twice a day, jardiance 25 mg daily Hypoglycemic episodes on this regimen: None and not checking blood sugars at home Follows up with for diabetes management: Primary care physician at [facility] Diabetic-complications assessment: Retinopathy: None Peripheral neuropathy: Yes on treatment Autonomic neuropathy: None Nephropathy: None Macrovascular complications: None Risk factor assessment: Last lipid profile - None on file On ACEi/ARB: Yes On Statin: yes 2. 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 CAMP TENDER 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 daily TSH 2.1 this admission Forgets to take her levothyroxine sometime 3. Enteral Nutrition 4. Obesity Class III 5. Hyperlipidemia On lovastatin 6. Chondorsarcoma Pelvis s/p hemipelvectomy Recommendations: Patient with blood sugar control at target or near target so no changes today Continue with Lantus 22 units QHS Continue with NovoLog 8 units postmeal Continue with MDCF x5 Continue NPH 30 units with nocturnal tube feeds - please hold NPH if tube feed are held and give at the start of tube feed TSh this admit 26 and will recommend to continue with LT4 175mcg daily and the TSh elevation is likely nonthyroidal in nature as TSH durng admit was 2.1. She will need repeat TFTS in 6-8 weeks Current TF regimen : Nutren 1.5, goal rate 75ml/hr x 6hr at night starting 2200 History of Present Illness Beata Kaiser is a 52 y.o. She moved to rehab yesterday but has not exercise much due to leakage from wound vac. Continues to have bothersome hot flashes. She continues to be on nocturnal tube feeds. Not eating much today. Estimated Creatinine Clearance: 105.4 mL/min (based on SCr of 0.58 mg/dL). Review of Systems The patient denies headache, vision changes, shortness of air, chest pain, abdominal pain, nausea or vomiting. Medications Scheduled Meds: acetaminophen (TYLENOL) tablet 1,000 mg 1,000 mg Oral Q8H* buPROPion (WELLBUTRIN) tablet 100 mg 100 mg Oral TID busPIRone (BUSPAR) tablet 30 mg 30 mg Oral BID collagenase (SANTYL) topical ointment Topical QDAY docusate (COLACE) capsule 100 mg 100 mg Oral BID ertapenem (INVANZ) IVP 1 g 1 g Intravenous Q24H* gabapentin (NEURONTIN) capsule 900 mg 900 mg Oral Q8H [START ON 01/17/2018] HYDROmorphone injection (DILAUDID) injection 1 mg 1 mg Intravenous Once per day on Wed insulin aspart U-100 (NOVOLOG FLEXPEN) injection PEN 0-14 Units 0-14 Units Subcutaneous 5 X Day insulin aspart U-100 (NOVOLOG FLEXPEN) injection PEN 8 Units 8 Units Subcutaneous TID after meals insulin glargine (LANTUS SOLOSTAR, BASAGLAR) injection PEN 20 Units 20 Units Subcutaneous QHS insulin NPH (HUMULIN N KwikPen) injection PEN 30 Units 30 Units Subcutaneous QDAY(21) lactobacillus rhamnosus GG (CULTURELLE) 15 billion cell capsule 1 capsule 1 capsule Oral BID w/meals levothyroxine (SYNTHROID) tablet 175 mcg 175 mcg Oral QDAY before breakfast lidocaine (LIDODERM) 5 % topical patch 2 patch 2 patch Topical QDAY [START ON 01/17/2018] lidocaine 2% (20 mg/mL) injection 50 mL 50 mL SEE ADMIN INSTRUCTIONS Once per day on Wed micafungin (MYCAMINE) 100 mg in sodium chloride 0.9% (NS) 100 mL IVPB (MB+) 100 mg Intravenous Q24H* nortriptyline (PAMELOR) capsule 25 mg 25 mg Oral QHS oxyCODONE SR (OXYCONTIN) tablet 20 mg 20 mg Oral BID pantoprazole DR (PROTONIX) tablet 40 mg 40 mg Oral QDAY(21) rivaroxaban (XARELTO) tablet 20 mg 20 mg Oral QDAY w/breakfast sodium chloride PF 0.9% injection 20 mL 20 mL Intravenous Q8H* vitamin A & D topical ointment Topical BID Continuous Infusions: PRN and Respiratory Meds:alum/mag hydroxide/simeth Q6H PRN, calcium carbonate Q4H PRN, milk of magnesia (CONC) Q4H PRN, ondansetron (ZOFRAN) IV Q6H PRN, oxyCODONE Q4H PRN, pancrelipase 20,000 Units/ sodium bicarbonate 650 mg(#) PRN ( Catalogue Librarian from Rx) Physical Examination Vital Signs: Last Vital Signs: 24 Hour Range BP: 123/66 (01/16 1652) Temp: 36.3 C (97.4 F) (01/16 1652) Pulse: 111 (01/16 1652) Respirations: 18 PER MINUTE (01/16 1652) SpO2: 94 % (01/16 1652) O2 Delivery: None (Room Air) (01/16 1652) BP: (105-132)/(54-67) Temp: [36.3 C (97.3 F)-37.1 C (98.7 F)] Pulse: [106-111] Respirations: [18 PER MINUTE-20 PER MINUTE] SpO2: [93 %-99 %] O2 Delivery: None (Room Air) General appearance: alert, oriented, NAD, OG + Resp: breathing comfortably Abd; Colostomy + Ext: s/p left hemipelvectomy Neuro: Alert Lab Review Point of Care Testing (Last 24 hours) Recent Labs 01/14/18 0716 01/14/18 1205 01/14/18 1657 01/14/18 2114 01/15/18 0003 01/15/18 0714 01/15/18 1153 01/15/18 1648 GLUPOC 144* 114* 97 103* 145* 192* 165* 243* Recent Labs 01/13/18 0342 01/14/18 0440 01/15/18 0600 NA 135* 137 135* K 4.5 4.3 4.1 CL 100 101 100 CO2 27 28 29 GAP 8 8 6 BUN 14 12 12 CR 0.66 0.61 0.58 GLU 216* 237* 177* CA 8.5 8.3* 8.3* ALBUMIN -- 2.3* -- Recent Labs 01/13/18 0342 01/14/18 0440 01/15/18 0600 WBC 9.9 10.9 11.5* HGB 10.9* 7.8* 6.5* HCT 31.8* 23.1* 19.2* PLTCT 630* 641* 662* AST -- 20 -- ALT -- 19 -- ALKPHOS -- 92 -- Estimated Creatinine Clearance: 105.4 mL/min (based on SCr of 0.58 mg/dL). Vitals: 01/14/18 1615 Weight: 99 kg (218 lb 4.8 oz) Thyroid Studies Lab Results Component Value Date/Time TSH 16.790 (H) 01/09/2018 01:40 PM No results found for: FREET3, U8ELCLLNP, THYBINDGLB Linus Pisano MD p [phone] * Darlene Garcia, RN - 01/15/2018 3:00 PM CDT Pt's wound vac alarming due to leaking. Pt's wound vac has drained 450 ml serosanguinous fluid from 0730 to 0930 and dressing had multiple leaks.Dr. Pride notified. Reinforced wound vac dressing several times this am in between therapies. By lunchtime wound vac draining smaller amounts. 250 ml measured between 1000 and 1830. Leaking has subsided. * Judith Chambers - 01/15/2018 2:47 PM CDT SPEECH-LANGUAGE PATHOLOGY COGNITIVE ASSESSMENT EVALUATION SUMMARY Cognitive-communication evaluation complete utilizing Shopography Cognitive Screen. Cognitive-communication abilities noted to be WNL. Mild slowed processing noted , though this was determined to be due to lethargy secondary to medications ( oxycodone and gabapentin). 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 Pt lives with her family and was independent before hospitalization. Pt reports no changes in thinking abilities since leg was amputated, but states she is often tired from medications. Please see below for details/recommendations. RECOMMENDATIONS Cognitive skills noted to be WFL. No further speech therapy warranted at this time. Physician informed. Overall Cognitive Severity Level: WNL Prognosis: Good Plan: Patient Functioning at Baseline. No Further Speech Therapy Indicated at this Time. Results Reported to Physician: Yes PRAGMATICS Comments*: Pragmatics WFL BEHAVIOR Comments*: Behavior WFL AUDITORY COMPREHENSION Comments*: WNL ORIENTATION Comments*: A&O x4. Insightful into medical course AUDITORY ATTENTION/WORKING MEMORY Digit Repetition: Highest repeated forward=7; Highest repeated backward=5 Delayed Recall: Pt recalled 2/3 words after 3-min delay with independence; 3/3 words given min category cue AUDITORY MEMORY/SUSTAINED ATTENTION Listening Comprehension: Pt answered 4/4 questions after a 48-word paragraph was read to her. 3/5 questions correct after 57-word paragraph significant distractions present in room during this exercises, as maintenance was fixing toilet Reading Comprehension: Pt answered 10/10 questions correctly after independently reading Mid-level article about caves NEW LEARNING: Word Pairs: Pt recalled 5/10 words pairs after 1st presentation, 9/10 words after 2nd presentation; 10/10 words after 3rd presentation Pt exhibits ability to learn and recall new information. NAMING Word Fluency/Generative Naming: Pt stated 14 animals in 1 minute (WNL=15). Anticipate extra processing was required d/t medication side effects PROBLEM SOLVING Pt answers 4/4 safety scenario questions with 100% accuracy and demonstrates flexibility within answers. MATH/MONEY SKILLS Pt answers 7/7 math/money/time word problems with 100% accuracy. No extra processing time required. Objective* Relevant Med Background: Beata Lives With: Family Receives Help From: None Needed Vocational: [employer] Employment Psychosocial Status: Willing and Cooperative to Participate, Lethargic Persons Present: None Subjective* Pain: Patient demonstrates no signs of pain Feeding Tube Present During Eval: [employer] Education* Persons Educated: Patient Barriers To Learning: None Noted, Decreased Alertness Interventions: Staff Educated Teaching Methods: Verbal Topics: Memory Patient Response: Verbalized Understanding Goal Formulation: With Patient Therapist: Judith Chambers Date: 01/15/2018 * Arnaldo Delacruz MD - 01/15/2018 9:57 AM CDT Formatting of this note may be different from the original. Physical Medicine & Rehabilitation Progress Note Patient name: Beata Kaiser Patient age: 52 y.o. Today's Date: 01/15/2018 Admission Date: 01/14/2018 LOS: 1 day Assessment/Plan: Active Problems: Chondrosarcoma (HCC) Acute blood loss as cause of postoperative anemia Depression Anxiety DM (diabetes mellitus) (HCC) 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 Post-op pain Bacteremia Amputated left leg (HCC) Candiduria Amputation of leg (HCC) Beata Kaiser is a 52 y.o. female admitted to [facility] on 01/14/18 with the following issues : s/p hemipelvectomy due to chondrosarcoma Impairments: amputation (lower extremity), pain and poor activity tolerance Activity Limitations: bathing, dressing - lower, toileting, transfers and wheelchair Participation Restrictions: unable to return home safely Rehabilitation Plan Patient will be admitted to inpatient rehabilitation for comprehensive therapies to include Physical therapy, Occupational therapy and Speech therapy Rehabilitation Prognosis: Fair to good Tolerance for three hours of therapy a day: fair to good Goals/Barriers/Facilitators Family / Patient Goals: return home with family assistance Mobility Goals: mod-I w/c level Activities of Daily Living (ADLs) Goals: Overall goal is Modified independent Cognition / Communication Goals: Speech therapy will evaluate and treat cognition and communication deficits and assess for safe swallow Barriers & Interventions: Caregiver Apprehension: Arrange caregiver support and discuss barriers and patient progress with caregivers when appropriate. Functioning at Wheelchair Level: Adaptive equipment, create wide,/clear paths, home modifications, alternative transportation arrangements, vehicle modifications, pursue home ramp access, and remove home obstacles. [place] of Care: Initiate interdisciplinary rehabilitation to improve functional independence and reduce burden of care. Facilitators: treated depression / anxiety and patient motivation Current Medical Problems/Risks of Medical Complications/Management Hospital problems and plan: Chrondrosarcoma s/p hemipelvectomy Post-op pain - 11/25/17 MRI: a large lesion throughout the entire left hemipelvis that appeared to be centered within the ilium - 11/30/17 open biopsy showed chondrosarcoma - 12/14/17: left hemipelvectomy, jamil sacrectomy -01/06 CT: left hemipelvectomy, edema w/in the operative bed- not changed except sl more gas, more focal gas/fluid alonger anterior/inferior and superior surgical margins > wound vac in place. Changes M/W/F by wound vac team. IV dilaudid PRN for WV changes + lidocaine into sponge during acute hospitalization > Change dressings prn with xeroform, dry gauze, and hypafix tape > pain control with scheduled Tylenol, oxycontin 20mg BID and oxycodone 20mg q3h prn. Lidoderm patch prn. Gabapentin 300mg TID > vitamin A & D for labia wound, collagenase for left lower abdomen wound healing 01/15: RN reports 400ml serosanguinous drainage over last 2 hours. Paged Ortho to update. s/p diverting colostomy - Stool saturating wound. Diverting colostomy done 12/30 > wound/ostomy consulted Bladder injury, recent repair - bladder and urethral injuries during hemipelvectomy on 12/14/17 - underwent cystoscopy with left ureteral stent insertion, Bladder neck repair, Urethroplasty and repair of urethral injury, Vaginal closure > continue melchor catheter Chest lesions (metastases?) - 11/26/17 CT: few small pulmonary nodules. > plan is to resect the masses in the chest later > CT chest scheduled for 01/20 with f/u with CTS surgery (may need to come see in rehab) GBS bacteremia w/ sepsis due to left hip wound - Fever and leukocytosis began 12/20/17, Bcx 1/2 positive for GBS on 12/23 - CT pelvis 12/25 showed ill-defined fluid and air along the anterior margin of the surgical site away from the drain tip. However, no discrete drainable fluid collection is noted. - OR 01/10 for wound eval - no sign of infection - posterior wound starting to granulate, WV replaced; WV changed 01/12, wound clean with blood present, no purulence > per ID recs, continue ertapenem 1 gram daily -->plan 10more days IV antibiotic assuming no new wound concerns; stop 01/23 > ID to continue to follow in rehab (will place consult Wednesday morning) Candiduria - 12/21/17 UA: wbc 2-10, negative nitrite, 1+ luukocytes, Culture > 100,000 Liliana sp - Treating given indwelling melchor and inability to remove melchor d/t recent bladder repair - Cath change in OR 01/10 - no bladder leak at that time > per ID recs, continue micafungin ~another 3days given cath change in OR on 01/10; stop 01/16 DVT - 11/30/17 IVC filter for DVT within the external iliac vein > cont Xarelto ABLA - Hgb 7.8 on admission to rehab - no concern for current bleed at this time > monitor labs T2DM - A1c 6.5%, controlled - CAMP TENDER regimen: Metformin thousand milligrams twice a day, [id number] mg daily > Continue with Lantus 22 units QHS, novolog 8u postmeal, MDCF 5x per day > Continue NPH 30 units with nocturnal tube feeds - please hold NPH if tube feed are held and give at the start of tube feed 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 - CAMP TENDER 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 daily - TSH 2.1 this admission > continue CAMP TENDER levothyroxine > She will need repeat thyroid function tests in 6-8 weeks MDD CLAUDIA Adjustment disorder with mixed anxiety and depressed mood > continue CAMP TENDER Wellbutrin and buspar HLD: holding CAMP TENDER statin Insomnia: nortriptyline 25mg qhs Skin: There are no pressure sores currently. Bowel: ostomy Bladder: melchor Nutrition: Current diet: diabetic and nocturnal tube feeds - Nutren 1.5 [id number] at 75mL/hr through [employer] with 3 protein packs per day, H2O 30mL q4h Mental Health: consult neuropsychology to provide support / counseling DVT Prophylaxis: Xarelto, will discharge on it Arnaldo Delacruz MD Subjective Beata Kaiser is a 52 y.o. female. Patient feels well this AM, slept well last night. She denies increased pain. Denies SOB, CP, N&V. Review of Systems - A 10 point review of systems was negative accept where reported in the HPI Medications Scheduled Meds: acetaminophen (TYLENOL) tablet 1,000 mg 1,000 mg Oral Q8H* buPROPion (WELLBUTRIN) tablet 100 mg 100 mg Oral TID busPIRone (BUSPAR) tablet 30 mg 30 mg Oral BID collagenase (SANTYL) topical ointment Topical QDAY docusate (COLACE) capsule 100 mg 100 mg Oral BID ertapenem (INVANZ) IVP 1 g 1 g Intravenous Q24H* gabapentin (NEURONTIN) capsule 900 mg 900 mg Oral Q8H [START ON 01/17/2018] HYDROmorphone injection (DILAUDID) injection 1 mg 1 mg Intravenous Once per day on Wed insulin aspart U-100 (NOVOLOG FLEXPEN) injection PEN 0-14 Units 0-14 Units Subcutaneous 5 X Day insulin aspart U-100 (NOVOLOG FLEXPEN) injection PEN 8 Units 8 Units Subcutaneous TID after meals insulin glargine (LANTUS SOLOSTAR, BASAGLAR) injection PEN 20 Units 20 Units Subcutaneous QHS insulin NPH (HUMULIN N KwikPen) injection PEN 30 Units 30 Units Subcutaneous QDAY(21) lactobacillus rhamnosus GG (CULTURELLE) 15 billion cell capsule 1 capsule 1 capsule Oral BID w/meals levothyroxine (SYNTHROID) tablet 175 mcg 175 mcg Oral QDAY before breakfast lidocaine (LIDODERM) 5 % topical patch 2 patch 2 patch Topical QDAY [START ON 01/17/2018] lidocaine 2% (20 mg/mL) injection 50 mL 50 mL SEE ADMIN INSTRUCTIONS Once per day on Wed micafungin (MYCAMINE) 100 mg in sodium chloride 0.9% (NS) 100 mL IVPB (MB+) 100 mg Intravenous Q24H* nortriptyline (PAMELOR) capsule 25 mg 25 mg Oral QHS oxyCODONE SR (OXYCONTIN) tablet 20 mg 20 mg Oral BID pantoprazole DR (PROTONIX) tablet 40 mg 40 mg Oral QDAY(21) rivaroxaban (XARELTO) tablet 20 mg 20 mg Oral QDAY w/breakfast sodium chloride PF 0.9% injection 20 mL 20 mL Intravenous Q8H* vitamin A & D topical ointment Topical BID Continuous Infusions: PRN and Respiratory Meds:alum/mag hydroxide/simeth Q6H PRN, calcium carbonate Q4H PRN, milk of magnesia (CONC) Q4H PRN, ondansetron (ZOFRAN) IV Q6H PRN, oxyCODONE Q4H PRN, pancrelipase 20,000 Units/ sodium bicarbonate 650 mg(#) PRN ( Catalogue Librarian from Rx) Objective Vital Signs: Last Filed Vital Signs: 24 Hour Range BP: 113/61 (01/16 848) Temp: 36.7 C (98 F) (01/16 848) Pulse: 107 (01/16 848) Respirations: 18 PER MINUTE (01/16 848) SpO2: 97 % (01/16 848) O2 Delivery: None (Room Air) (01/16 848) Height: 160 cm (63") (01/14 161) BP: (105-130)/(54-80) Temp: [36.3 C (97.3 F)-37.1 C (98.7 F)] Pulse: [106-115] Respirations: [16 PER MINUTE-18 PER MINUTE] SpO2: [93 %-99 %] O2 Delivery: None (Room Air) Intensity Pain Scale 0-10 (Pain 1): 3 (01/15/18 0800) Vitals: 01/14/18 1615 Weight: 99 kg (218 lb 4.8 oz) Intake/Output Summary: (Last 24 hours) Intake/Output Summary (Last 24 hours) at 01/15/18 0958 Last data filed at 01/15/18 0900 Gross per 24 hour Intake 1078 ml Output 4750 ml Net -3672 ml Last BM Date: 01/14/18 Physical Exam VS: BP 113/61 (BP Source: Arm, Left) | Pulse 107 | Temp 36.7 C (98 F) | Ht 160 cm (63") | Wt 99 kg (218 lb 4.8 oz) | LMP 01/14/2013 | SpO2 97% | BMI 38.67 kg/m Gen: AOX3, NAD HEENT: EOMI, MMM Heart: Extremtities well perfused Lungs: Good inspiratory effort without recruitment of accessory muscles Abd: Soft, non-distended Ext: Lt hemipelvectomy * Kelli Grigsby RN - 01/14/2018 9:58 PM CDT New Admit.Nutren 1.5 not in stock. Notified House sup.She will be calling back with an update. * Christin Mckeon RN - 01/14/2018 7:00 PM CDT Patient arrived to room # (2215 via cart accompanied by transport. Patient transferred to the bed with assistance. Bedside safety checks completed. Initial patient assessment completed, refer to flowsheet for details. Admission skin assessment completed by: Pressure Injury Present on Hospital Admission (within 24 hours): yes 1. Occiput: No 2. Ear: Yes 3. Scapula: No 4. Spinous Process: No 5. Shoulder: No 6. Elbow: No 7. Iliac Crest: No 8. Sacrum/Coccyx: No 9. Ischial Tuberosity: No 10. Trochanter: No 11. Knee: No 12. Malleolus: No 13. Heel: No 14. Toes: No 15. Assessed for device associated injury Yes 16. Nursing Nutrition Assessment Completed Yes See Doc Flowsheet for additional wound details. INTERVENTIONS: * Allen Pepe RN - 01/14/2018 4:49 PM CDT Pt A&Ox4. Patient allergy band in place.Pt ID band verified with patient. Profile completed, Fall risk in place, care plan/education updated, call light within reach in this encounter H&P Notes * Arnaldo Delacruz MD - 01/14/2018 3:22 PM CDT Formatting of this note may be different from the original. Physical Medicine & Rehabilitation Post-Admission Physician Evaluation Date of Service: 01/15/2018 Beata Kaiser is a 52 y.o. female. : 1965 MRN# : [id number] Insurance: Commercial Date of Admission: 01/14/2018 Rehabilitation Medicine Attending Physician Attestation: I personally performed banuelos portions of the history and exam. I discussed the case with the resident and concur with the resident's documentation of history, physical assessment and treatment plan unless otherwise noted. Current Level of Function: The most recent therapy notes dated 01/14/2018 are outlined in the residents H &P. Per rehab nursing, the patient required total assist to transfer into bed upon arrival to the rehabilitation unit. Upon my exam, the patient required max assist for bed mobility, communication was intact, and ability to follow commands was intact. Neurologic exam is notable for the following: MS: Root Right Left Shoulder Abduction C5 5 5 Elbow Flexion C5 5 5 Elbow Extension C7 5 5 Wrist Extension C6 5 5 Finger Flexion C8 5 5 Finger Abduction T1 5 5 Hip Flexion L2 3 - Knee Flexion L5/S1 4 - Knee Extension L3 4 - Dorsiflexion L4 4 - Plantarflexion S1 4 - Neuro: Cranial Nerves Cranial Nerves 2-12 are grossly intact Babinski Plantar Reflex is Downgoing on right Ortiz Normal Upper Extremity Sensation Intact to light touch bilaterally Lower Extremity Sensation Intact to light touch bilaterally Clonus Negative on right Proprioception Intact Bilaterally Memory/Cognition/Speech Oriented x 3. Speech fluent and clear. Conversation appropriate. Memory and cognition grossly intact. Relevant change since pre-admission screening: I have compared this to the Pre-admission Screen, and there is not a relevant change in medical or functional status from the Pre-admission Screen. This patient meets medical necessity requiring the intensity of therapy available at the [facility]. The patient can participate in and can fully benefit from the services offered in the inpatient rehabilitation facility setting including 24 hour rehabilitation nursing, daily oversight from the Truck Mechanic Apprentice, and complex interdisciplinary rehab as noted below. This patients acute medical issues including the following list of active comorbidities and risk of medical complications put them at higher risk for recurrence or hospital readmission without daily physician medical management, which requires an IRF level of care and cannot be met at a lower level of care. Active Comorbidities/Risk of Medical Complications: Chrondrosarcoma s/p hemipelvectomy Post-op pain - 11/25/17 MRI: a large lesion throughout the entire left hemipelvis that appeared to be centered within the ilium - 11/30/17 open biopsy showed chondrosarcoma - 12/14/17: left hemipelvectomy, jamil sacrectomy -01/06 CT: left hemipelvectomy, edema w/in the operative bed- not changed except sl more gas, more focal gas/fluid alonger anterior/inferior and superior surgical margins > wound vac in place. Changes M/W/F by wound vac team. IV dilaudid PRN for WV changes + lidocaine into sponge during acute hospitalization > Change dressings prn with xeroform, dry gauze, and hypafix tape > pain control with scheduled Tylenol, oxycontin 20mg BID and oxycodone 20mg q3h prn. Lidoderm patch prn. Gabapentin 300mg TID > vitamin A & D for labia wound, collagenase for left lower abdomen wound healing s/p diverting colostomy - Stool saturating wound. Diverting colostomy done 12/30 > wound/ostomy consulted Bladder injury, recent repair - bladder and urethral injuries during hemipelvectomy on 12/14/17 - underwent cystoscopy with left ureteral stent insertion, Bladder neck repair, Urethroplasty and repair of urethral injury, Vaginal closure > continue melchor catheter Chest lesions (metastases?) - 11/26/17 CT: few small pulmonary nodules. > plan is to resect the masses in the chest later > CT chest scheduled for 01/20 with f/u with CTS surgery (may need to come see in rehab) GBS bacteremia w/ sepsis due to left hip wound - Fever and leukocytosis began 12/20/17, Bcx 1/2 positive for GBS on 12/23 - CT pelvis 12/25 showed ill-defined fluid and air along the anterior margin of the surgical site away from the drain tip. However, no discrete drainable fluid collection is noted. - OR 01/10 for wound eval - no sign of infection - posterior wound starting to granulate, WV replaced; WV changed 01/12, wound clean with blood present, no purulence > per ID recs, continue ertapenem 1 gram daily -->plan 10more days IV antibiotic assuming no new wound concerns; stop 01/23 > ID to continue to follow in rehab (will place consult Wednesday) Candiduria - 12/21/17 UA: wbc 2-10, negative nitrite, 1+ luukocytes, Culture > 100,000 Liliana sp - Treating given indwelling melchor and inability to remove melchor d/t recent bladder repair - Cath change in OR 01/10 - no bladder leak at that time > per ID recs, continue micafungin ~another 3days given cath change in OR on 01/10; stop 01/16 DVT - 11/30/17 IVC filter for DVT within the external iliac vein > cont Xarelto ABLA - Hgb 7.8 on admission to rehab - no concern for current bleed at this time > monitor labs T2DM - A1c 6.5%, controlled - CAMP TENDER regimen: Metformin thousand milligrams twice a day, [id number] mg daily > Continue with Lantus 22 units QHS, novolog 8u postmeal, MDCF 5x per day > Continue NPH 30 units with nocturnal tube feeds - please hold NPH if tube feed are held and give at the start of tube feed 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 - CAMP TENDER 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 daily - TSH 2.1 this admission > continue CAMP TENDER levothyroxine > She will need repeat thyroid function tests in 6-8 weeks MDD CLAUDIA Adjustment disorder with mixed anxiety and depressed mood > continue CAMP TENDER Wellbutrin and buspar HLD: holding CAMP TENDER statin Insomnia: nortriptyline 25mg qhs Skin: There are no pressure sores currently. Bowel: ostomy Bladder: melchor Nutrition: Current diet: diabetic and nocturnal tube feeds - Nutren 1.5 [id number] at 75mL/hr through [place] with 3 protein packs per day, H2O 30mL q4h Mental Health: consult neuropsychology to provide support / counseling DVT Prophylaxis: Xarelto, will discharge on it Prior Level of Function Self-Care/ADLs: ind Mobility: ind Home Environment Home Situation: Lives with Family (01/14/2018 2:00 PM) Patient Owned Equipment: Crutches (01/14/2018 2:00 PM) Type of Home: House (01/14/2018 2:00 PM) Entry Stairs: 1-2 Stairs (01/14/2018 2:00 PM) In-Home Stairs: No Stairs (01/14/2018 2:00 PM) Comments: Patient previously active and independent and working in community ( 11:00 AM) Support System: family Rehabilitation Plan Rehabilitation Plan Patient will be admitted to inpatient rehabilitation for comprehensive therapies to include Physical therapy, Occupational therapy and Speech therapy Rehabilitation Prognosis: Fair to good Tolerance for three hours of therapy a day: fair to good Goals/Barriers/Facilitators Family / Patient Goals: return home with family assistance Mobility Goals: mod-I w/c level Activities of Daily Living (ADLs) Goals: Overall goal is Modified independent Cognition / Communication Goals: Speech therapy will evaluate and treat cognition and communication deficits and assess for safe swallow Barriers & Interventions: Caregiver Apprehension: Arrange caregiver support and discuss barriers and patient progress with caregivers when appropriate. Functioning at Wheelchair Level: Adaptive equipment, create wide,/clear paths, home modifications, alternative transportation arrangements, vehicle modifications, pursue home ramp access, and remove home obstacles. [place] of Care: Initiate interdisciplinary rehabilitation to improve functional independence and reduce burden of care. Facilitators: treated depression / anxiety and patient motivation The patient should reach their current goals by projected discharge date. Additional therapeutic disciplines may be included during this stay if indicated during interdisciplinary communication and will be noted in the daily progress notes when relevant. Social Work will address discharge planning needs. The patient was seen within 24 hours of admission to the inpatient rehabilitation unit. The patient was seen on 01/15/2018 at 10:15 AM Arnaldo Delacruz MD Physical Medicine & Rehabilitation History & Physical Note Date of Service: 01/14/2018 Beata Kaiser is a 52 y.o. female. : 1965 MRN# : [id number] Primary Insurance: [facility] Secondary Insurance: Tertiary Insurance: Financial Class: Commercial Date of Admission: 01/14/18 Precautions: Fall Weight bearing Precautions: NWB LLE Active Problems Active Problems: Chondrosarcoma (HCC) Acute blood loss as cause of postoperative anemia Depression Anxiety DM (diabetes mellitus) (HCC) 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 Post-op pain Bacteremia Amputated left leg (HCC) Candiduria Assessment & Plan Beata Kaiser is a 52 y.o. female admitted to [facility] on 01/14/18 with the following issues : s/p hemipelvectomy due to chondrosarcoma Impairments: amputation (lower extremity), pain and poor activity tolerance Activity Limitations: bathing, dressing - lower, toileting, transfers and wheelchair Participation Restrictions: unable to return home safely Rehabilitation Plan Patient will be admitted to inpatient rehabilitation for comprehensive therapies to include Physical therapy, Occupational therapy and Speech therapy Rehabilitation Prognosis: Fair to good Tolerance for three hours of therapy a day: fair to good Goals/Barriers/Facilitators Family / Patient Goals: return home with family assistance Mobility Goals: mod-I w/c level Activities of Daily Living (ADLs) Goals: Overall goal is Modified independent Cognition / Communication Goals: Speech therapy will evaluate and treat cognition and communication deficits and assess for safe swallow Barriers & Interventions: Caregiver Apprehension: Arrange caregiver support and discuss barriers and patient progress with caregivers when appropriate. Functioning at Wheelchair Level: Adaptive equipment, create wide,/clear paths, home modifications, alternative transportation arrangements, vehicle modifications, pursue home ramp access, and remove home obstacles. [place] of Care: Initiate interdisciplinary rehabilitation to improve functional independence and reduce burden of care. Facilitators: treated depression / anxiety and patient motivation Current Medical Problems/Risks of Medical Complications/Management Hospital problems and plan: Chrondrosarcoma s/p hemipelvectomy Post-op pain - 11/25/17 MRI: a large lesion throughout the entire left hemipelvis that appeared to be centered within the ilium - 11/30/17 open biopsy showed chondrosarcoma - 12/14/17: left hemipelvectomy, jamil sacrectomy -01/06 CT: left hemipelvectomy, edema w/in the operative bed- not changed except sl more gas, more focal gas/fluid alonger anterior/inferior and superior surgical margins > wound vac in place. Changes M/W/F by wound vac team. IV dilaudid PRN for WV changes + lidocaine into sponge during acute hospitalization > Change dressings prn with xeroform, dry gauze, and hypafix tape > pain control with scheduled Tylenol, oxycontin 20mg BID and oxycodone 20mg q3h prn. Lidoderm patch prn. Gabapentin 300mg TID > vitamin A & D for labia wound, collagenase for left lower abdomen wound healing s/p diverting colostomy - Stool saturating wound. Diverting colostomy done 12/30 > wound/ostomy consulted Bladder injury, recent repair - bladder and urethral injuries during hemipelvectomy on 12/14/17 - underwent cystoscopy with left ureteral stent insertion, Bladder neck repair, Urethroplasty and repair of urethral injury, Vaginal closure > continue melchor catheter Chest lesions (metastases?) - 11/26/17 CT: few small pulmonary nodules. > plan is to resect the masses in the chest later > CT chest scheduled for 01/20 with f/u with CTS surgery (may need to come see in rehab) GBS bacteremia w/ sepsis due to left hip wound - Fever and leukocytosis began 12/20/17, Bcx 1/2 positive for GBS on 12/23 - CT pelvis 12/25 showed ill-defined fluid and air along the anterior margin of the surgical site away from the drain tip. However, no discrete drainable fluid collection is noted. - OR 01/10 for wound eval - no sign of infection - posterior wound starting to granulate, WV replaced; WV changed 01/12, wound clean with blood present, no purulence > per ID recs, continue ertapenem 1 gram daily -->plan 10 more days IV antibiotic assuming no new wound concerns; stop 01/23 > ID to continue to follow in rehab (will place consult Wednesday morning) Candiduria - 12/21/17 UA: wbc 2-10, negative nitrite, 1+ luukocytes, Culture > 100,000 Liliana sp - Treating given indwelling melchor and inability to remove melchor d/t recent bladder repair - Cath change in OR 01/10 - no bladder leak at that time > per ID recs, continue micafungin ~another 3 days given cath change in OR on ; stop 01/16 DVT - 11/30/17 IVC filter for DVT within the external iliac vein > cont Xarelnafisa ABLA - Hgb 7.8 on admission to rehab - no concern for current bleed at this time > monitor labs T2DM - A1c 6.5%, controlled - CAMP TENDER regimen: Metformin thousand milligrams twice a day, jardiance 25 mg daily > Continue with Lantus 22 units QHS, novolog 8u postmeal, MDCF 5x per day > Continue NPH 30 units with nocturnal tube feeds - please hold NPH if tube feed are held and give at the start of tube feed 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 - CAMP TENDER 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 daily - TSH 2.1 this admission > continue CAMP TENDER levothyroxine > She will need repeat thyroid function tests in 6-8 weeks MDD CLAUDIA Adjustment disorder with mixed anxiety and depressed mood > continue CAMP TENDER Wellbutrin and buspar HLD: holding CAMP TENDER statin Insomnia: nortriptyline 25mg qhs Skin: There are no pressure sores currently. Bowel: ostomy Bladder: melchor Nutrition: Current diet: diabetic and nocturnal tube feeds - Nutren 1.5 [id number] at 75mL/hr through [employer] with 3 protein packs per day, H2O 30mL q4h Mental Health: consult neuropsychology to provide support / counseling DVT Prophylaxis: Kely, will discharge on it History of Present Illness Hospital Course: Beata Kaiser is a 52 yo F who presented to [facility] on 12/13/17 for scheduled left hemipelvectomy for chondrosarcoma. Pt underwent open biopsy of left pelvis previously on 11/29. The pt was admitted post-operatively for IVC filter placement secondary to DVT. Pathology consistent with chondrosarcoma. Pt underwent scheduled hemipelvectomy on 12/14/17. After resection of the pelvis had been performed, there was noted to be a small cystotomy as well as urethral injury. These were repaired by urology, melchor still in place. Pt became septic with GBS, ID consulted, being treated with ertapenem. Diverting colostomy was placed on 12/30 due to stool saturating the wound. Wound vac currently in place with MWF changes. Hospitalization also complicated by ABLA and post-op pain. Today, the patient feels ok. Pain well controlled. Reports not much of an appetite. Tube feeds going well. No n/v/abdominal pain. Pt denies any other acute complaints today. Past Medical History Past Medical History: Diagnosis Date Anxiety Back pain Depression DM (diabetes mellitus) (HCC) 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 Past Surgical History Past Surgical History: Procedure Laterality Date SKIN BIOPSY Left 11/30/2017 BIOPSY SKIN LEFT PELVIS performed by [facility] PELVIS OSTEOTOMY Left 12/14/2017 JAMIL PELVECTOMY performed by Tamiko [facility] MD [facility] URETER STENT PLACEMENT Bilateral 12/14/2017 CYSTORRHAPHY AND BLADDER NECK REPAIR, CYSTOSCOPY, performed by Spencer Purcell MD [facility] PERIPHERAL VASCULAR SURGERY Left 12/14/2017 LEFT ILIAC EXPOSURE performed by Pio Malagon DO at [facility] LEG DEBRIDEMENT Left 01/10/2018 WOUND EXPLORATION LEFT HEMIPELVECTOMY, IRRIGATION AND DEBRIDEMENT, WOUND VAC PLACEMENT performed by Tamiko [facility] MD [facility] NM VOIDING CYSTOGRAM N/A 01/10/2018 CYSTOGRAM, MELCHOR CATHETER EXCHANGE performed by Tamiko [facility] MD at [facility] SECTION HERNIA REPAIR MANDIBLE SURGERY Family\\Social History Social History Social History Marital status: Spouse name: N/A Number of children: N/A Years of education: N/A Social History Main Topics Smoking status: Never Smoker Smokeless tobacco: Never Used Alcohol use No Drug use: No Sexual activity: Not on file Other Topics Concern Not on file Social History Narrative No narrative on file Family history reviewed; non-contributory Scheduled Meds: acetaminophen (TYLENOL) tablet 1,000 mg 1,000 mg Oral Q8H* buPROPion (WELLBUTRIN) tablet 100 mg 100 mg Oral TID busPIRone (BUSPAR) tablet 30 mg 30 mg Oral BID [START ON 01/15/2018] collagenase (SANTYL) topical ointment Topical QDAY [START ON 01/15/2018] ertapenem (INVANZ) IVP 1 g 1 g Intravenous Q24H* gabapentin (NEURONTIN) capsule 900 mg 900 mg Oral Q8H [START ON 01/17/2018] HYDROmorphone injection (DILAUDID) injection 1 mg 1 mg Intravenous Once per day on Wed insulin aspart U-100 (NOVOLOG FLEXPEN) injection PEN 0-14 Units 0-14 Units Subcutaneous 5 X Day insulin aspart U-100 (NOVOLOG FLEXPEN) injection PEN 8 Units 8 Units Subcutaneous TID after meals insulin glargine (LANTUS SOLOSTAR, BASAGLAR) injection PEN 22 Units 22 Units Subcutaneous QHS insulin NPH (HUMULIN N KwikPen) injection PEN 30 Units 30 Units Subcutaneous QDAY(21) lactobacillus rhamnosus GG (CULTURELLE) 15 billion cell capsule 1 capsule 1 capsule Oral BID w/meals levothyroxine (SYNTHROID) tablet 175 mcg 175 mcg Oral QDAY before breakfast [START ON 01/15/2018] lidocaine (LIDODERM) 5 % topical patch 2 patch 2 patch Topical QDAY [START ON 01/17/2018] lidocaine 2% (20 mg/mL) injection 50 mL 50 mL SEE ADMIN INSTRUCTIONS Once per day on Wed [START ON 01/15/2018] micafungin (MYCAMINE) 100 mg in sodium chloride 0.9% (NS) 100 mL IVPB (MB+) 100 mg Intravenous Q24H* nortriptyline (PAMELOR) capsule 25 mg 25 mg Oral QHS oxyCODONE SR (OXYCONTIN) tablet 20 mg 20 mg Oral BID pantoprazole DR (PROTONIX) tablet 40 mg 40 mg Oral QDAY(21) [START ON 01/15/2018] rivaroxaban (XARELTO) tablet 20 mg 20 mg Oral QDAY w/ breakfast vitamin A & D topical ointment Topical BID Continuous Infusions: PRN and Respiratory Meds:alum/mag hydroxide/simeth Q6H PRN, calcium carbonate Q4H PRN, ondansetron (ZOFRAN) IV Q6H PRN, oxyCODONE Q4H PRN Allergies: Allergies Allergen Reactions Cephalexin SEE COMMENTS Face gets red, feels really hot, has tolerated penicillin Prior Level of Function Self-Care/ADLs: ind Mobility: ind Home Environment Home Situation: Lives with Family (01/14/2018 2:00 PM) Patient Owned Equipment: Crutches (01/14/2018 2:00 PM) Type of Home: House (01/14/2018 2:00 PM) Entry Stairs: 1-2 Stairs (01/14/2018 2:00 PM) In-Home Stairs: No Stairs (01/14/2018 2:00 PM) Comments: Patient previously active and independent and working in community ( 11:00 AM) Support System: family Current Level of Function Physcal Therapy: Bed Mobility/Transfers Bed Mobility: Rolling: Minimal Assist;Head of Bed Elevated;Use of Rail (Assist with left hip) Bed Mobility: Supine to Sit: Minimal Assist;Head of Bed Elevated;Use of Rail; Assist with Trunk Bed Mobility: Sit to Supine: Minimal Assist;HOB Elevated;Use of Rail;Assist with R LE Comments: Pt can roll herself onto her side with minimal assistance with left hip. Pt is able to turn trunk to side on own but requires minimal assistance to roll left hip. Pt continues to require assistance with sit to supine with trunk when stabilizing elbow underneath trunk to push herself up. Pt also required minimal assistance to lift R leg into her bed when moving from sit to supine. Transfer Type: Sliding Board Transfer: Assistance Level: From;Bed;To;Wheelchair;Moderate Assist;x2 People Transfer: Assistive Device: Sliding Board (1 person stabilizing slide board) Transfers: Type Of Assistance: Verbal Cues;Knees(s) Blocked;For Strength Deficit ;For Slide Board Placement;For Safety Considerations Other Transfer Type: Sliding Board Other Transfer: Assistance Level: From;Wheelchair;To;Bed;Moderate Assist;x2 People (1 person stabilizing slide board) Other Transfer: Assistive Device: Sliding Board Other Transfer: Type Of Assistance: Verbal Cues;Knees(s) Blocked;For Strength Deficit;For Slide Board Placement;For Safety Considerations End Of Activity Status: In Bed (Nursing with patient) Comments: Pt was able to assist staff with getting the wheelchair ready for slide board transfer. Staff placed the slideboard for transfer and 1 person blocked R knee and foot and assist hips to scoot towards left with drawsheet. 2nd person assisted at the back of pt with drawsheet to assist pt with scoot. 3rd person assisted with slideboard stabilization. Pt continued to require verbal cues to learn forward and to the right in order to offload left hip and increasing scooting ability. WHEELCHAIR MOBILITY: Wheelchair Mobility Wheelchair: Distance: 22 feet Wheelchair: Assistance Level: Standby Assist Wheelchair: Method: Propels Manual Wheelchair with;Bilateral;UE Comments: Pt was able to propel manual wheelchair with 1 pillow behind back in order to increase forward lean and allow pt to better reach handrims on the wheels. Occupational Therapy: Where Assessed: Edge of Bed Grooming Assist: Stand By Assist Grooming Deficits: Brushing Hair LE Dressing Assist: Stand By Assist LE Dressing Deficits: Don/Doff R Sock;Use of Adaptive Equipment Functional Transfer Assist: Stand By Assist Functional Transfer Deficits: (supine<>sit) Comment: Pt supine upon OT arrival. Pt able to complete supine>sit with close stand by assist, head of bed elevated. Pt sat edge of bed x16 minutes with stand by assist. Pt did have 2 losses of sitting balance with LE dressing but pt able to return to midline with SBA. Pt completed theraband exercises sitting edge of bed - Level I, 1 set x 10 reps, shoulder flexion/abduction/adduction, elbow flexion, elbow extension, bow and arrow. Review of Systems A 14 point review of systems was negative except for: those stated in HPI. Physical Exam BP: 128/80 (01/14 1501) Temp: 36.8 C (98.2 F) (01/14 1501) Pulse: 115 (01/14 1501) Respirations: 16 PER MINUTE (01/14 1501) SpO2: 98 % (01/14 1501) O2 Delivery: None (Room Air) (01/14 150) Body mass index is 38.67 kg/m. Gen: Awake, alert, No Acute Distress HEENT: NCAT, PERRL, EOMI, MMM Heart: Regular Rate & Rhythm, no m/g/r Lungs: Clear to auscultation bilaterally, no w/r/r Abdomen: Soft, non-tender, non-distended, +BS : +Melchor Skin: warm, dry Ext: lle amputation with dressing in place, mild rle edema MS: Root Right Left Shoulder Abduction C5 5 5 Elbow Flexion C5 5 5 Elbow Extension C7 5 5 Wrist Extension C6 5 5 Finger Flexion C8 5 5 Finger Abduction T1 5 5 Hip Flexion L2 3 - Knee Flexion L5/S1 4 - Knee Extension L3 4 - Dorsiflexion L4 4 - Plantarflexion S1 4 - Neuro: Cranial Nerves Cranial Nerves 2-12 are grossly intact Babinski Plantar Reflex is Downgoing on right Ortiz Normal Upper Extremity Sensation Intact to light touch bilaterally Lower Extremity Sensation Intact to light touch bilaterally Clonus Negative on right Proprioception Intact Bilaterally Memory/Cognition/Speech Oriented x 3. Speech fluent and clear. Conversation appropriate. Memory and cognition grossly intact. Intake/Output Summary: Intake/Output Summary (Last 24 hours) at 01/14/18 1522 Last data filed at 01/14/18 1402 Gross per 24 hour Intake 537 ml Output 3825 ml Net -3288 ml Stool Occurrence: 1 (01/08/2018 9:30 AM) Last BM Date: 01/14/18 (01/14/2018 9:08 AM) No Data Recorded No Data Recorded Bowel Accident: 1 (12/29/2017 9:15 PM) No Data Recorded Oral Diet Order: Diabetic [id number] Kcal/day (60 g Carb/meal, 30 g Carb/HS snack ) (01/14/2018 12:00 PM) Basic Metabolic Profile Lab Results Component Value Date/Time NA 137 01/14/2018 04:40 AM K 4.3 01/14/2018 04:40 AM CA 8.3 (L) 01/14/2018 04:40 AM CL 101 01/14/2018 04:40 AM CO2 28 01/14/2018 04:40 AM Lab Results Component Value Date/Time BUN 12 01/14/2018 04:40 AM CR 0.61 01/14/2018 04:40 AM GLU 237 (H) 01/14/2018 04:40 AM CBC w/Diff Lab Results Component Value Date/Time WBC 10.9 01/14/2018 04:40 AM RBC 2.73 (L) 01/14/2018 04:40 AM HGB 7.8 (L) 01/14/2018 04:40 AM HCT 23.1 (L) 01/14/2018 04:40 AM MCV 84.6 01/14/2018 04:40 AM MCH 28.7 01/14/2018 04:40 AM RDW 17.1 (H) 01/14/2018 04:40 AM PLTCT 641 (H) 01/14/2018 04:40 AM MPV 6.2 (L) 01/14/2018 04:40 AM Lab Results Component Value Date/Time NEUT 64 01/10/2018 03:30 AM ANC 5.80 01/10/2018 03:30 AM LYMA 15 (L) 01/10/2018 03:30 AM ALC 1.40 01/10/2018 03:30 AM CALVIN 12 01/10/2018 03:30 AM AMC 1.10 (H) 01/10/2018 03:30 AM EOSA 9 (H) 01/10/2018 03:30 AM AEC 0.80 (H) 01/10/2018 03:30 AM BASA 0 01/10/2018 03:30 AM ABC 0.00 01/10/2018 03:30 AM Radiology: Reviewed in this encounter Procedure Notes * Gentry Crowell RN - 03/02/2018 1:55 PM CDT PICC Line Insertion Procedure Note NAME:Beata Kaiser :1965 AGE: 52 y.o. ADMISSION DATE: 01/14/2018 DAYS ADMITTED: LOS: 47 days Procedure Details: Informed consent was obtained for the procedure. Risks of infection, blood clot, and nerve or vessel damage were discussed. Indications: Home IV therapy Procedure: Under sterile conditions the skin at the insertion site was prepped with chlorhexadineand covered with a sterile drape. Local anesthesia was applied to the skin and subcutaneous tissues. A #4 FR, Single, PICC was inserted in theRight Basilic vein per hospital protocol. Blood return: Yes Catheter trimmed, inserted to 38 cm, with 0 cm external. Catheter was flushed with 20 mL NS. Patient did tolerate procedure well. Mid upper arm circumference is 30 cm. Verification:Placement confirmed with ECG., Patency verified by positive blood return., Placement has been confirmed by CXR., Venous location confirmed by ultrasound. and Educational material/teaching instruction given to patient and/ or left at bedside. Tip at the level of CAJ verified by pallavi Gomez and green ecg rhythm a tip locating device. May start to use the PICC line. Placed by Hallie Nails RN([facility])/ Cayla Crowell RN BSN CRNI. Assisted by Cayla GEE. in this encounter Consult Notes * Casey Schneider MD - 03/01/2018 3:45 PM CDT Formatting of this note may be different from the original. Wound Consult Note NAME:Beata Kaiser :1965 AGE: 52 y.o. ADMISSION DATE: 01/14/2018 DAYS ADMITTED: LOS: 46 days Principal Problem: Left hip amputation status Active Problems: Chondrosarcoma (HCC) Acute blood loss as cause of postoperative anemia Depression Anxiety DM (diabetes mellitus) (HCC) 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 Chronic pain Post-op pain Bacteremia Amputated left leg (HCC) Candiduria Assessment/Plan: Compromised skin flap Recommendations: Completion of 20 HBOT for compromised skin flap Reason for Consultation: As above History of Present Illness: Has sucessfully completed 20 HBOT for compromised skin flap. Evaluated by Dr. Wu for revision of flap to be completed following discharge from the hospital. No problems with HBOT. Past Medical History: Past Medical History: Diagnosis Date Anxiety Back pain Depression DM (diabetes mellitus) (HCC) 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 Past Surgical History: Past Surgical History: Procedure Laterality Date SKIN BIOPSY Left 11/30/2017 BIOPSY SKIN LEFT PELVIS performed by Tamiko Luther MD at [facility]iop PELVIS OSTEOTOMY Left 12/14/2017 JAMIL PELVECTOMY performed by [facility] URETER STENT PLACEMENT Bilateral 12/14/2017 CYSTORRHAPHY AND BLADDER NECK REPAIR, CYSTOSCOPY, performed by [facility] PERIPHERAL VASCULAR SURGERY Left 12/14/2017 LEFT ILIAC EXPOSURE performed by Pio [facility] LEG DEBRIDEMENT Left 01/10/2018 WOUND EXPLORATION LEFT HEMIPELVECTOMY, IRRIGATION AND DEBRIDEMENT, WOUND VAC PLACEMENT performed by [facility] NM VOIDING CYSTOGRAM N/A 01/10/2018 CYSTOGRAM, MELCHOR CATHETER EXCHANGE performed by [facility] SECTION HERNIA REPAIR MANDIBLE SURGERY Family/Social History: Family History Problem Relation Age of Onset Osteoporosis Mother Arthritis-rheumatoid Maternal Grandmother Social History Social History Marital status: Spouse name: N/A Number of children: N/A Years of education: N/A Social History Main Topics Smoking status: Never Smoker Smokeless tobacco: Never Used Alcohol use No Drug use: No Sexual activity: Not on file Other Topics Concern Not on file Social History Narrative No narrative on file Review of Systems: A comprehensive review of systems was negative except for: Integument/breast: positive for compromised skin flap at hemipelvectomy site Objective: Allergies: Allergies Allergen Reactions Cephalexin SEE COMMENTS Face gets red, feels really hot, has tolerated penicillin Medications: Scheduled Meds: aspirin chewable tablet 81 mg 81 mg Oral QDAY buPROPion (WELLBUTRIN) tablet 100 mg 100 mg Oral TID busPIRone (BUSPAR) tablet 30 mg 30 mg Oral BID collagenase (SANTYL) topical ointment Topical QDAY docusate (COLACE) capsule 100 mg 100 mg Oral BID ferrous sulfate (FEOSOL, FEROSUL) tablet 325 mg 325 mg Oral TID w/ meals gabapentin (NEURONTIN) capsule 600 mg 600 mg Oral Q6H insulin aspart U-100 (NOVOLOG FLEXPEN) injection PEN 0-6 Units 0-6 Units Subcutaneous ACHS lactobacillus rhamnosus GG (CULTURELLE) 15 billion cell capsule 1 capsule 1 capsule Oral BID w/meals levothyroxine (SYNTHROID) tablet 200 mcg 200 mcg Oral QDAY before breakfast meropenem (MERREM) IVP 1 g 1 g Intravenous Q8H* And meropenem (MERREM) IVP 1 g 1 g Intravenous Q8H* metFORMIN (GLUCOPHAGE) tablet 1,000 mg 1,000 mg Oral BID w/meals nortriptyline (PAMELOR) capsule 75 mg 75 mg Oral QHS oxyCODONE SR (OXYCONTIN) tablet 10 mg 10 [address] BID [address] (PROTONIX) tablet 40 mg 40 mg Oral QDAY(21) rivaroxaban (XARELTO) tablet 20 mg 20 mg Oral QDAY w/breakfast simvastatin (ZOCOR) tablet 20 mg 20 mg Oral QHS sitaGLIPtin (JANUVIA) tablet 100 mg 100 mg Oral QDAY sodium chloride PF 0.9% flush 3-5 mL 3-5 mL Intravenous FLUSH TID sodium chloride PF 0.9% flush 3-5 mL 3-5 mL Intravenous FLUSH TID vancomycin (VANCOCIN) 2,000 mg in sodium chloride 0.9% (NS) IVPB 2,000 mg Intravenous Q24H* Continuous Infusions: PRN and Respiratory Meds:acetaminophen Q6H PRN, aluminum/magnesium hydroxide Q6H PRN, calcium carbonate Q4H PRN, milk of magnesia (CONC) Q4H PRN, ondansetron Q6H PRN, oxyCODONE Q4H PRN, oxyCODONE QDAY PRN, pancrelipase 20,000 Units/ sodium bicarbonate 650 mg(#) PRN (Catalogue Librarian from Rx), saliva, synthetic PRN , sodium hypochlorite PRN, vancomycin IVPB Q24H* AND vancomycin, pharmacy to manage Per Pharmacy Prescriptions Prior to Admission Medication Sig Dispense Refill Last Dose acetaminophen (TYLENOL) 500 mg tablet Take 2 tablets by mouth every 8 hours. Max of 4,000 mg of acetaminophen in 24 hours. 200 tablet 0 alum/mag hydroxide/simeth (MYLANTA, MAALOX PLUS) 200/200/20 mg/5 mL susp oral suspension Take 30 mL by mouth every 6 hours as needed. aspirin EC 81 mg tablet Take 81 mg by mouth daily. Take with food. 2017 buPROPion (WELLBUTRIN) 100 mg tablet Take 1 tablet by mouth three times daily. 90 tablet 0 busPIRone (BUSPAR) 30 mg tablet Take 30 mg by mouth twice daily. 2017 collagenase (SANTYL) 250 unit/g topical ointment Apply to left lower abdominal wound. Do not apply over incision. 0 diazePAM (VALIUM) 5 mg tablet Take 0.5-1 tablets by mouth every 8 hours as needed. [] ertapenem (INVANZ) 1 g/10 mL IVP Administer 10 mL through vein every 24 hours for 9 days. 1 each gabapentin (NEURONTIN) 300 mg capsule Take 3 capsules by mouth three times daily. 270 capsule 3 HYDROmorphone injection (DILAUDID) 2 mg/mL syrg Administer 0.5-1 mg through vein three times weekly Earliest Fill Date: 01/14/18 Only as needed for wound vac changes. Attempt to wean. insulin aspart U-100 (NOVOLOG FLEXPEN) 100 unit/mL injection PEN Inject 8 Units under the skin three times daily after meals. 45 mL 3 insulin glargine (LANTUS SOLOSTAR, BASAGLAR) 100 unit/mL (3 mL) injection PEN Inject 22 Units under the skin at bedtime daily. 45 mL 3 insulin NPH (HUMULIN N KWIKPEN) 100 unit/mL (3 mL) injection PEN Inject 30 Units under the skin daily. 45 mL 3 insulin pen needles (disposable) (BD UF LYNETTE PEN NEEDLES) 32 gauge x 5/32" pen needle Use 1 each as directed before meals and at bedtime. Use with insulin injections. 300 each 3 lactobacillus rhamnosus GG (CULTURELLE) 15 billion cell cpSP capsule Take 1 capsule by mouth as directed twice daily with meals. 90 capsule 3 levothyroxine (SYNTHROID) 175 mcg tablet Take 175 mcg by mouth daily. 11/29 lidocaine 2% (20 mg/mL) soln 50 mL by SEE ADMIN INSTRUCTIONS route three times weekly. To be used for wound vac changes PRN. Use 50 ml to infiltrate wound vac sponge prior to wound vac changes for pain control. 5 mL lisinopril (PRINIVIL; ZESTRIL) 10 mg tablet Take 10 mg by mouth daily. 08/2018 lovastatin(+) (MEVACOR) 40 mg tablet Take 40 mg by mouth at bedtime daily. 11/29/2017 [] micafungin (MYCAMINE) 100 mg/5 mL 100 mg in sodium chloride 0.9% ( NS) 0.9 % 100 mL IVPB (MB+) Administer 100 mg through vein every 24 hours for 2 days. nortriptyline (PAMELOR) 25 mg capsule Take 1 capsule by mouth at bedtime daily. oxyCODONE SR (OXYCONTIN) 20 mg tablet Take 1 tablet by mouth twice daily Earliest Fill Date: 01/14/18 0 oxycodone(+) (ROXICODONE, OXY-IR) 10 mg tablet Take 1-2 tablets by mouth every 4 hours as needed Earliest Fill Date: 01/14/18 75 tablet 0 pancrelipase 20,000 Units/ sodium bicarbonate 650 mg(#) (KU CLOG DESTROYER) 20,000 Unit/ 650 mg cap Take 1 capsule via feeding tube PRN (Catalogue Librarian from Rx) ( Occluded Feeding Tube). pantoprazole DR (PROTONIX) 40 mg tablet Take 1 tablet by mouth daily. 90 tablet 3 potassium chloride SR (K-DUR) 10 mEq tablet Take 10 mEq by mouth daily. Take with a meal and a full glass of water. 11/29/2017 rivaroxaban (XARELTO) 20 mg tablet Take 1 tablet by mouth daily with breakfast. 90 tablet 0 senna/docusate (SENOKOT-S) 8.6/50 mg tablet Take 1 tablet by mouth twice daily. 60 tablet 0 simethicone (MYLICON) 80 mg chew tablet Chew 1 tablet by mouth every 6 hours as needed for Flatulence. 30 tablet 0 vitamin A & D oint Apply topically to affected area twice daily. Apply thin layer of ointment to labial wound. Vital Signs: Last Filed Vital Signs: 24 Hour Range BP: 131/80 (03/01 1222) Temp: 36.7 C (98 F) (03/01 1320) Pulse: 120 (03/01 1222) Respirations: 18 PER MINUTE (03/01 1222) SpO2: 92 % (03/01 1222) O2 Delivery: None (Room Air) (03/01 122) BP: (115-138)/(61-84) Temp: [36.5 C (97.7 F)-38.1 C (100.6 F)] Pulse: [109-120] Respirations: [18 PER MINUTE] SpO2: [91 %-100 %] O2 Delivery: None (Room Air) Intensity Pain Scale 0-10 (Pain 1): 6 (03/01/18 1237) Wt Readings from Last 10 Encounters: 03/01/18 97.9 kg (215 lb 12.8 oz) 02/03/18 91.7 kg (202 lb 2.6 oz) 02/02/18 92.3 kg (203 lb 7.8 oz) 02/01/18 90.7 kg (200 lb) 01/14/18 102.3 kg (225 lb 8.5 oz) 12/01/17 104.3 kg (230 lb) 11/29/17 104.9 kg (231 lb 3.2 oz) Body mass index is 38.23 kg/m. Physical Exam: General appearance: alert and cooperative HEENT: PERRLA, EOMs full, sclera clear Neurologic: awake and alert, memory intact Lungs: clear to auscultation bilaterally Heart: regular rate and rhythm, S1, S2 normal, no murmur, click, rub or gallop Abdomen: soft, non-tender. Bowel sounds normal. No masses, no organomegaly Extremities: status post hemipelvectomy with coverage flap Skin: Resolution of venous congestion and improvement in edema of coverage flap Laboratory Review: 24-hour labs: Results for orders placed or performed during the hospital encounter of (from the past 24 hour(s)) POC GLUCOSE Collection Time: 02/28/18 4:59 PM Result Value Ref Range Glucose, POC 110 (H) 70 - 100 MG/DL POC GLUCOSE Collection Time: 02/28/18 8:19 PM Result Value Ref Range Glucose, POC 78 70 - 100 MG/DL POC GLUCOSE Collection Time: 03/01/18 6:58 AM Result Value Ref Range Glucose, POC 94 70 - 100 MG/DL POC GLUCOSE Collection Time: 03/01/18 11:14 AM Result Value Ref Range Glucose, POC 145 (H) 70 - 100 MG/DL POC GLUCOSE Collection Time: 03/01/18 1:20 PM Result Value Ref Range Glucose, POC 114 (H) 70 - 100 MG/DL POC GLUCOSE Collection Time: 03/01/18 3:17 PM Result Value Ref Range Glucose, POC 100 70 - 100 MG/DL Chest X-Ray: No pertinent radiology. Wound Exam: Fibrin 100% Improvement: More Shallow Surgical Debridement: No Wound Orders/Recommendations: Weight Bearing Activity: Keep legs elevated Support Surface: Other Positioning: Turn every 2 hours to relieve pressure Labs: Pre-Albumin Wound Site: coverage flap jamil pelvectomy Ointment/Contact Layer: Other: Dakin's solution as per Dr. Wu Wound Dimensions (as per W/C nursing assessment): Wounds (NOT for Pressure Injuries) 11/30/17 0853 Left Buttocks Surgical Incision (Active) 11/30/17 0853 Buttocks Wound Orientation: Left Wound Type: Surgical Incision Wound Type:: Wound Description (Comments): Carlos Manuel Rosales Drain, Sutures, xeroform, 4x4's, and tegaderm. Wound Image 02/28/2018 12:00 PM Agree With My Assessment? Yes 02/08/2018 12:00 AM Wound Base Assessment Moist;Eschar;Slough 03/01/2018 12:00 PM Surrounding Skin Assessment [place];Dry 03/01/2018 12:00 PM Wound Site Closure [place] 03/01/2018 12:00 PM Wound Drainage Amount Small 03/01/2018 12:00 PM Wound Drainage Description Serosanguineous 03/01/2018 12:00 PM Wound Dressing Status Changed 03/01/2018 12:00 PM Wound Dressing and / or Treatment Dry Gauze Outers 03/01/2018 12:00 PM Wound Length (cm) (Wound Team Only) 17 cm 02/28/2018 12:00 PM Wound Width (cm) (Wound Team Only) 5 cm 02/28/2018 12:00 PM Wound Depth (cm) (Wound Team Only) 1.5 02/28/2018 12:00 PM Wound Volume (cm^3) (Wound Team Only) 127.5 cm^3 02/28/2018 12:00 PM Wound Healing % (Wound Team Only) -1114.29 02/28/2018 12:00 PM Number of days: 91 Wounds (NOT for Pressure Injuries) 11/30/17 1427 Right;Anterior Neck Surgical Incision (Active) 11/30/17 1427 Neck Wound Orientation: Right;Anterior Wound Type: Surgical Incision Wound Type:: Wound Description (Comments): Number of days: 91 Wounds (NOT for Pressure Injuries) 12/14/17 1748 Left Abdomen Ulcer (not from pressure) (Active) 12/14/17 1748 Abdomen Wound Orientation: Left Wound Type: Ulcer (not from pressure) Wound Type:: Wound Description (Comments): Wound Image 02/28/2018 12:00 PM Agree With My Assessment? Yes 02/08/2018 12:00 AM Wound Base Assessment Moist;Slough 03/01/2018 12:00 PM Surrounding Skin Assessment [place];Intact 03/01/2018 12:00 PM Wound Site Closure None 03/01/2018 12:00 PM Wound Drainage Amount Scant 03/01/2018 12:00 PM Wound Drainage Description Serosanguineous 03/01/2018 12:00 PM Wound Dressing Status Changed 03/01/2018 12:00 PM Wound Dressing and / or Treatment Collagenase;Gauze (4X4) 03/01/2018 12:00 PM Wound Length (cm) (Wound Team Only) 6.5 cm 02/28/2018 12:00 PM Wound Width (cm) (Wound Team Only) 18 cm 02/28/2018 12:00 PM Wound Depth (cm) (Wound Team Only) 0.1 02/28/2018 12:00 PM Wound Volume (cm^3) (Wound Team Only) 11.7 cm^3 02/28/2018 12:00 PM Wound Healing % (Wound Team Only) -39.29 02/28/2018 12:00 PM Wound Status (Wound Team Only) Being Treated 02/09/2018 11:40 AM Number of days: 77 Wounds (NOT for Pressure Injuries) 12/30/17 1002 Left;Anterior Surgical Incision stump (Active) 12/30/17 1002 Wound Orientation: Left;Anterior Wound Type: Surgical Incision Wound Type:: stump Wound Description (Comments): Suture, ceci, telfa and iodine, 4x4, and tegaderm Wound Image 02/28/2018 12:00 PM Agree With My Assessment? Yes 02/08/2018 12:00 AM Wound Base Assessment Eschar;Dry 03/01/2018 12:00 PM Surrounding Skin Assessment [place];Intact 03/01/2018 12:00 PM Wound Site Closure [place] 03/01/2018 12:00 PM Wound Drainage Amount Scant 03/01/2018 12:00 PM Wound Drainage Description Serosanguineous 03/01/2018 12:00 PM Wound Dressing Status Changed 03/01/2018 12:00 PM Wound Dressing and / or Treatment Dry Gauze Outers 03/01/2018 12:00 PM Wound Length (cm) (Wound Team Only) 18 cm 02/28/2018 12:00 PM Wound Width (cm) (Wound Team Only) 23 cm 02/28/2018 12:00 PM Wound Depth (cm) (Wound Team Only) 0.3 02/28/2018 12:00 PM Wound Volume (cm^3) (Wound Team Only) 124.2 cm^3 02/28/2018 12:00 PM Wound Healing % (Wound Team Only) -263.58 02/28/2018 12:00 PM Number of days: 61 Wounds (NOT for Pressure Injuries) 01/10/18 1100 Hip Surgical Incision (Active) 01/10/18 1100 Hip Wound Orientation: Wound Type: Surgical Incision Wound Type:: Wound Description (Comments): Wound Image 02/28/2018 12:00 PM Agree With My Assessment? Yes 02/08/2018 12:00 AM Wound Base Assessment [place];Yellow;[place];Moist;Eschar;Slough 03/01/2018 12:00 PM Surrounding Skin Assessment Edema 03/01/2018 12:00 PM Wound Site Closure Ceci 03/01/2018 12:00 PM Wound Drainage Amount Large 03/01/2018 12:00 PM Wound Drainage Description Serosanguineous;[place] 03/01/2018 12:00 PM Wound Dressing Status Changed 03/01/2018 12:00 PM Wound Dressing and / or Treatment Dakins;Kerlix;Dry Gauze Outers 03/01/2018 12: 00 PM Wound Length (cm) (Wound Team Only) 13 cm 02/28/2018 12:00 PM Wound Width (cm) (Wound Team Only) 30 cm 02/28/2018 12:00 PM Wound Depth (cm) (Wound Team Only) 9 02/28/2018 12:00 PM Wound Volume (cm^3) (Wound Team Only) 3510 cm^3 02/28/2018 12:00 PM Wound Healing % (Wound Team Only) -50 02/28/2018 12:00 PM Wound Status (Wound Team Only) Being Treated 02/21/2018 11:40 AM Tunneling in CM (Wound Team Only) 15 cm 02/28/2018 12:00 PM Tunnelling Location 3 02/28/2018 12:00 PM Number of days: 50 Wounds (NOT for Pressure Injuries) 01/10/18 Left;Inner;Posterior Buttocks Surgical Incision (Active) 01/10/18 Buttocks Wound Orientation: Left;Inner;Posterior Wound Type: Surgical Incision Wound Type:: Wound Description (Comments): Wound Image 02/28/2018 12:00 PM Agree With My Assessment? Yes 02/15/2018 9:00 PM Wound Base Assessment Eschar;Slough 03/01/2018 12:00 PM Surrounding Skin Assessment [place];Intact 03/01/2018 12:00 PM Wound Site Closure [place] 03/01/2018 12:00 PM Wound Drainage Amount Small 03/01/2018 12:00 PM Wound Drainage Description Serosanguineous 03/01/2018 12:00 PM Wound Dressing Status Changed 03/01/2018 12:00 PM Wound Dressing and / or Treatment Dry Gauze Outers 03/01/2018 12:00 PM Wound Length (cm) (Wound Team Only) 10 cm 02/28/2018 12:00 PM Wound Width (cm) (Wound Team Only) 5 cm 02/28/2018 12:00 PM Wound Depth (cm) (Wound Team Only) 1 02/28/2018 12:00 PM Wound Volume (cm^3) (Wound Team Only) 50 cm^3 02/28/2018 12:00 PM Wound Healing % (Wound Team Only) -669.23 02/28/2018 12:00 PM Number of days: 50 [REMOVED] Pressure Injury 01/14/18 1730 Right Ear Unstageable (Removed) 01/14/18 1730 Ear Pressure Injury Orientation: Right Pressure Injury Stages: Unstageable Pressure Injury Present On Admission: Y If this pressure injury is suspected to be device related, please select the device:: Tubing (Oxygen / Wound Vac / Drain) Removed 01/23/18 1843 Wound Dressing Status Open to Air 01/23/2018 8:25 PM Wound Drainage Amount None 01/23/2018 8:25 PM Wound Base Assessment [place] 01/23/2018 8:25 PM Surrounding Skin Assessment Dry;Intact 01/23/2018 8:25 PM [REMOVED] Ileal Conduit 12/30/17 1115 Left (Removed) 12/30/17 1115 Left Removed 12/30/17 1607 Colostomy 12/30/17 1209 Right (Active) 12/30/17 1209 Right Agree With My Assessment? Yes 02/25/2018 1:00 PM Stoma Assessment Red 03/01/2018 8:00 AM Drainage Description Brown 03/01/2018 8:00 AM Peristomal Skin Assessment Dry;Intact 03/01/2018 8:00 AM Dressing Status Clean;Dry;Intact 03/01/2018 8:00 AM Stoma Miscellaneous Other (Comment) 02/05/2018 8:00 AM Drain Output (ml) 0 ml 02/27/2018 10:00 AM Wound Care Team to follow, as will I. Thank you for this consultation of this patient. Further care by Dr. Wu with revision of flap. We will be available should the need arise. * Emma Payton, RN - 03/01/2018 2:17 PM CDT Diabetes Education Follow up: Attempted to meet with patient to discuss meal planning and carb counting which she had requested during a previous visit. Provided handouts on carb counting, discussing goal of 3 meals per day, spaced 4-5 hours apart, with 45-60g of carb per meal. When asked what pt's typical breakfast might be, pt responded " raisin bran cereal." Educator was able to locate nutrition information for raisin bran on her phone and discussed the Carb content (46g per 1 cup serving) . Educator discussed other carb friendly options. Pt reports that she may not eat lunch and educator suggested some light snack options that would be easy to prepare and keep her carb levels more consistent. Pt's then called and pt wanted to chat with him. Educator left to provide privacy. When educator returned later, pt had left for wound treatment. Carb counting/meal planning handouts left on pt's bedside table for her to refer to. Also provided information about insulin and administration using pens and needles since pt currently had order for insulin on her NOV. Per discussion with Dr. Pride afterwards, pt may not require insulin at discharge. Educator let Dr. Pride and MICKI Palacio know that if pt does require insulin, pt will need further teaching on how to use pens and needles. URMILA Tucker, RN Clinical Nurse Coordinator - Diabetes Education Nursing Clinical Excellence [facility] [email or web address] [phone] office [phone] pager * Howard Encarnacion MD - 02/27/2018 7:56 AM CDT Associated Order(s): CONSULT INFECTIOUS DISEASES PHYSICIAN Please see progress note from today * Emma Payton RN - 02/25/2018 3:43 PM CDT Diabetes Education follow up: Educator spoke with Hakeem regarding pt's need for discharge teaching related to insulin administration and guidance on diabetic meal plan which pt had requested during educator's previous visit. Hakeem reports that pt is tentatively scheduled for discharge next week on Wednesday. Educator will call on Wednesday to assess availability for teaching and arrange a time for follow up. URMILA Tucker, RN Clinical Nurse Coordinator - Diabetes Education Nursing Clinical Excellence [facility] [email or web address] [phone] office [phone] pager * Casey Schneider MD - 01/26/2018 1:09 PM CDT Associated Order(s): CONSULT HYPERBARIC PHYSICIAN Formatting of this note may be different from the original. Wound Consult Note NAME:Beata Kaiser :1965 AGE: 52 y.o. ADMISSION DATE: 01/14/2018 DAYS ADMITTED: LOS: 12 days Principal Problem: Left hip amputation status Active Problems: Chondrosarcoma (HCC) Acute blood loss as cause of postoperative anemia Depression Anxiety DM (diabetes mellitus) (HCC) 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 Chronic pain Post-op pain Bacteremia Amputated left leg (HCC) Candiduria Assessment/Plan: Compromised skin flap Recommendations: T-COM Compression Continue VAC therapy HBO at 2.0 BINA x 90 minutes or as per findings of T-COM, initial 10-15 treatments with reassessment and peer-review Reason for Consultation: As above History of Present Illness: This 52 y/o white female underwent a complicated left hemipelvectomy and jamil-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 Following initial surgery, multiple surgical procedures have occurred to address complications of the original surgery including repair of the bladder, urethroplasty and repair of urethral injury and vaginal closure, colostomy diverting loop, exploratory laparotomy with lysis of adhesions, wound exploration of the left hemipelvectomy, I and D with VAC placement. Subsequent wound dehiscence with development of compromised flap and necrosis of incisional margins. I have been asked to assess the patient regarding the utility of HBO therapy for treatment of compromised flap. The patient has also had VAC application with very slow progression toward healing with lymphedema and vascular congestion complicating and presenting obstacles for healing. The patient otherwise has been progressing with rehabilitative efforts and has been receiving nutritional supplements to maximize healing. Past Medical History: Past Medical History: Diagnosis Date Anxiety Back pain Depression DM (diabetes mellitus) (HCC) 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 Past Surgical History: Past Surgical History: Procedure Laterality Date SKIN BIOPSY Left 11/30/2017 BIOPSY SKIN LEFT PELVIS performed by [facility] PELVIS OSTEOTOMY Left 12/14/2017 JAMIL PELVECTOMY performed by Tamiko [facility] URETER STENT PLACEMENT Bilateral 12/14/2017 CYSTORRHAPHY AND BLADDER NECK REPAIR, CYSTOSCOPY, performed by Spencer [facility]cell MD [facility] PERIPHERAL VASCULAR SURGERY Left 12/14/2017 LEFT ILIAC EXPOSURE performed by Pio [facility]agon DO [facility] LEG DEBRIDEMENT Left 01/10/2018 WOUND EXPLORATION LEFT HEMIPELVECTOMY, IRRIGATION AND DEBRIDEMENT, WOUND VAC PLACEMENT performed by Tamiko [facility] NM VOIDING CYSTOGRAM N/A 01/10/2018 CYSTOGRAM, MELCHOR CATHETER EXCHANGE performed by Tam[facility] MD [facility] SECTION HERNIA REPAIR MANDIBLE SURGERY Family/Social History: Family History Problem Relation Age of Onset Osteoporosis Mother Arthritis-rheumatoid Maternal Grandmother Social History Social History Marital status: Spouse name: N/A Number of children: N/A Years of education: N/A Social History Main Topics Smoking status: Never Smoker Smokeless tobacco: Never Used Alcohol use No Drug use: No Sexual activity: Not on file Other Topics Concern Not on file Social History Narrative No narrative on file Review of Systems: Integument/breast: necrotic incisional margins with eschar and venous congestion at the tip of donor site. Marked lymphedema to the flap with wide separation of margins with serobloody drainage but no evidence of secondary infection. Objective: Allergies: Allergies Allergen Reactions Cephalexin SEE COMMENTS Face gets red, feels really hot, has tolerated penicillin Medications: Scheduled Meds: aspirin chewable tablet 81 mg 81 mg Oral QDAY buPROPion (WELLBUTRIN) tablet 100 mg 100 mg Oral TID busPIRone (BUSPAR) tablet 30 mg 30 mg Oral BID collagenase (SANTYL) topical ointment Topical QDAY docusate (COLACE) capsule 100 mg 100 mg Oral BID ferrous sulfate (FEOSOL, FEROSUL) tablet 325 mg 325 mg Oral TID w/ meals gabapentin (NEURONTIN) capsule 800 mg 800 mg Oral QID insulin aspart U-100 (NOVOLOG FLEXPEN) injection PEN 0-14 Units 0-14 Units Subcutaneous 5 X Day insulin aspart U-100 (NOVOLOG FLEXPEN) injection PEN 14 Units 14 Units Subcutaneous TID after meals insulin aspart U-100 (NOVOLOG FLEXPEN) injection PEN 8 Units 8 Units Subcutaneous QHS insulin glargine (LANTUS SOLOSTAR, BASAGLAR) injection PEN 20 Units 20 Units Subcutaneous QHS insulin NPH (HUMULIN N KwikPen) injection PEN 32 Units 32 Units Subcutaneous QDAY(21) lactobacillus rhamnosus GG (CULTURELLE) 15 billion cell capsule 1 capsule 1 capsule Oral BID w/meals levothyroxine (SYNTHROID) tablet 200 mcg 200 mcg Oral QDAY before breakfast lidocaine (LIDODERM) 5 % topical patch 2 patch 2 patch Topical QDAY nortriptyline (PAMELOR) capsule 25 mg 25 mg Oral QHS oxyCODONE (ROXICODONE, OXY-IR) tablet 15 mg 15 mg Oral Once per day on Wed oxyCODONE SR (OXYCONTIN) tablet 10 mg 10 [address] B[address] (PROTONIX) tablet 40 mg 40 mg Oral QDAY(21) rivaroxaban (XARELTO) tablet 20 mg 20 mg Oral QDAY w/breakfast simvastatin (ZOCOR) tablet 20 mg 20 mg Oral QHS sodium chloride PF 0.9% flush 20 mL 20 mL Intravenous FLUSH TID vitamin A & D topical ointment Topical BID Continuous Infusions: PRN and Respiratory Meds:acetaminophen Q6H PRN, alum/mag hydroxide/simeth Q6H PRN, calcium carbonate Q4H PRN, milk of magnesia (CONC) Q4H PRN, ondansetron ( ZOFRAN) IV Q6H PRN, oxyCODONE Q4H PRN, pancrelipase 20,000 Units/ sodium bicarbonate 650 mg(#) PRN (Catalogue Librarian from Rx) Prescriptions Prior to Admission Medication Sig Dispense Refill Last Dose acetaminophen (TYLENOL) 500 mg tablet Take 2 tablets by mouth every 8 hours. Max of 4,000 mg of acetaminophen in 24 hours. 200 tablet 0 alum/mag hydroxide/simeth (MYLANTA, MAALOX PLUS) 200/200/20 mg/5 mL susp oral suspension Take 30 mL by mouth every 6 hours as needed. aspirin EC 81 mg tablet Take 81 mg by mouth daily. Take with food. 2017 buPROPion (WELLBUTRIN) 100 mg tablet Take 1 tablet by mouth three times daily. 90 tablet 0 busPIRone (BUSPAR) 30 mg tablet Take 30 mg by mouth twice daily. 2017 collagenase (SANTYL) 250 unit/g topical ointment Apply to left lower abdominal wound. Do not apply over incision. 0 diazePAM (VALIUM) 5 mg tablet Take 0.5-1 tablets by mouth every 8 hours as needed. [] ertapenem (INVANZ) 1 g/10 mL IVP Administer 10 mL through vein every 24 hours for 9 days. 1 each gabapentin (NEURONTIN) 300 mg capsule Take 3 capsules by mouth three times daily. 270 capsule 3 HYDROmorphone injection (DILAUDID) 2 mg/mL syrg Administer 0.5-1 mg through vein three times weekly Earliest Fill Date: 01/14/18 Only as needed for wound vac changes. Attempt to wean. insulin aspart U-100 (NOVOLOG FLEXPEN) 100 unit/mL injection PEN Inject 8 Units under the skin three times daily after meals. 45 mL 3 insulin glargine (LANTUS SOLOSTAR, BASAGLAR) 100 unit/mL (3 mL) injection PEN Inject 22 Units under the skin at bedtime daily. 45 mL 3 insulin NPH (HUMULIN N KWIKPEN) 100 unit/mL (3 mL) injection PEN Inject 30 Units under the skin daily. 45 mL 3 insulin pen needles (disposable) (BD UF LYNETTE PEN NEEDLES) 32 gauge x 5/32" pen needle Use 1 each as directed before meals and at bedtime. Use with insulin injections. 300 each 3 lactobacillus rhamnosus GG (CULTURELLE) 15 billion cell cpSP capsule Take 1 capsule by mouth as directed twice daily with meals. 90 capsule 3 levothyroxine (SYNTHROID) 175 mcg tablet Take 175 mcg by mouth daily. 11/29 lidocaine 2% (20 mg/mL) soln 50 mL by SEE ADMIN INSTRUCTIONS route three times weekly. To be used for wound vac changes PRN. Use 50 ml to infiltrate wound vac sponge prior to wound vac changes for pain control. 5 mL lisinopril (PRINIVIL; ZESTRIL) 10 mg tablet Take 10 mg by mouth daily. 08/2018 lovastatin(+) (MEVACOR) 40 mg tablet Take 40 mg by mouth at bedtime daily. 11/29/2017 [] micafungin (MYCAMINE) 100 mg/5 mL 100 mg in sodium chloride 0.9% ( NS) 0.9 % 100 mL IVPB (MB+) Administer 100 mg through vein every 24 hours for 2 days. nortriptyline (PAMELOR) 25 mg capsule Take 1 capsule by mouth at bedtime daily. oxyCODONE SR (OXYCONTIN) 20 mg tablet Take 1 tablet by mouth twice daily Earliest Fill Date: 01/14/18 0 oxycodone(+) (ROXICODONE, OXY-IR) 10 mg tablet Take 1-2 tablets by mouth every 4 hours as needed Earliest Fill Date: 01/14/18 75 tablet 0 pancrelipase 20,000 Units/ sodium bicarbonate 650 mg(#) (KU CLOG DESTROYER) 20,000 Unit/ 650 mg cap Take 1 capsule via feeding tube PRN (Catalogue Librarian from Rx) ( Occluded Feeding Tube). pantoprazole DR (PROTONIX) 40 mg tablet Take 1 tablet by mouth daily. 90 tablet 3 potassium chloride SR (K-DUR) 10 mEq tablet Take 10 mEq by mouth daily. Take with a meal and a full glass of water. 11/29/2017 rivaroxaban (XARELTO) 20 mg tablet Take 1 tablet by mouth daily with breakfast. 90 tablet 0 senna/docusate (SENOKOT-S) 8.6/50 mg tablet Take 1 tablet by mouth twice daily. 60 tablet 0 simethicone (MYLICON) 80 mg chew tablet Chew 1 tablet by mouth every 6 hours as needed for Flatulence. 30 tablet 0 vitamin A & D oint Apply topically to affected area twice daily. Apply thin layer of ointment to labial wound. Vital Signs: Last Filed Vital Signs: 24 Hour Range BP: 113/59 (01/26 819) Temp: 36.7 C (98.1 F) (01/26 819) Pulse: 120 (01/26 819) Respirations: 18 PER MINUTE (01/26 819) SpO2: 94 % (01/26 819) O2 Delivery: None (Room Air) (01/26 819) BP: (94-113)/(48-59) Temp: [36.6 C (97.8 F)-37.7 C (99.9 F)] Pulse: [114-124] Respirations: [18 PER MINUTE] SpO2: [90 %-96 %] O2 Delivery: None (Room Air) Intensity Pain Scale 0-10 (Pain 1): 4 (01/26/18 1302) Wt Readings from Last 10 Encounters: 01/26/18 93.3 kg (205 lb 11 oz) 01/14/18 102.3 kg (225 lb 8.5 oz) 12/01/17 104.3 kg (230 lb) 11/29/17 104.9 kg (231 lb 3.2 oz) Body mass index is 36.44 kg/m. Physical Exam: General appearance: alert and cooperative HEENT: PERRLA< EOMs full, hearing intact, conjunctiva clear Neurologic: alert and awake, memory intact Lungs: clear to auscultation bilaterally Heart: regular rate and rhythm, S1, S2 normal, no murmur, click, rub or gallop Abdomen: soft, non-tender. Bowel sounds normal. No masses, no organomegaly Extremities: status post hemipelvectomy on the left Skin: Areas of necrotic slough and erythema along staple line, large area of eschar with surrounding venous congestion at the anterior portion of the incision line, posterior dehiscence with serobloody drainage with flap undermining Laboratory Review: 24-hour labs: Results for orders placed or performed during the hospital encounter of (from the past 24 hour(s)) POC GLUCOSE Collection Time: 01/25/18 4:58 PM Result Value Ref Range Glucose, POC 292 (H) 70 - 100 MG/DL POC GLUCOSE Collection Time: 01/25/18 9:26 PM Result Value Ref Range Glucose, POC 163 (H) 70 - 100 MG/DL POC GLUCOSE Collection Time: 01/26/18 3:37 AM Result Value Ref Range Glucose, POC 218 (H) 70 - 100 MG/DL BASIC METABOLIC PANEL CELLULAR THERAPEUTICS Collection Time: 01/26/18 5:00 AM Result Value Ref Range Sodium 134 (L) 137 - 147 MMOL/L Potassium 4.3 3.5 - 5.1 MMOL/L Chloride 99 98 - 110 MMOL/L CO2 29 21 - 30 MMOL/L Anion Gap 6 3 - 12 Glucose 222 (H) 70 - 100 MG/DL Blood Urea Nitrogen 15 7 - 25 MG/DL Creatinine 0.59 0.4 - 1.00 MG/DL Calcium 8.4 (L) 8.5 - 10.6 MG/DL eGFR Non >60 >60 mL/min eGFR >60 >60 mL/min CBC CELLULAR THERAPEUTICS Collection Time: 01/26/18 5:00 AM Result Value Ref Range White Blood Cells 11.6 (H) 4.5 - 11.0 K/UL RBC 2.88 (L) 4.0 - 5.0 M/UL Hemoglobin 7.6 (L) 12.0 - 15.0 GM/DL Hematocrit 23.5 (L) 36 - 45 % MCV 81.7 80 - 100 FL MCH 26.5 26 - 34 PG MCHC 32.4 32.0 - 36.0 G/DL RDW 18.7 (H) 11 - 15 % Platelet Count 532 (H) 150 - 400 K/UL MPV 7.2 7 - 11 FL POC GLUCOSE Collection Time: 01/26/18 6:29 AM Result Value Ref Range Glucose, POC 179 (H) 70 - 100 MG/DL POC GLUCOSE Collection Time: 01/26/18 12:53 PM Result Value Ref Range Glucose, POC 229 (H) 70 - 100 MG/DL and HgbA1C: Lab Results Component Value Date HGBA1C 6.5 12/28/2017 Chest X-Ray: Pertinent radiology reviewed. Heart size and pulmonary vasculature are within normal limits. Improvement in left lung base opacity. No pleural effusion or pneumothorax. IMPRESSION Improvement in left basilar atelectasis without acute cardiopulmonary abnormality. Wound Exam: Granulation 60% Fibrin 10% Eschar 30%: along incisional line VAC applied to dehiscence portion of the incision line Wound Dimensions (as per W/C nursing assessment): Wounds (NOT for Pressure Injuries) 11/30/17 0853 Left Buttocks Surgical Incision (Active) 11/30/17 0853 Buttocks Wound Orientation: Left Wound Type: Surgical Incision Wound Type:: Wound Description (Comments): Carlos Manuel Rosales Drain, Sutures, xeroform, 4x4's, and tegaderm. Wound Image 01/21/2018 12:15 PM Agree With My Assessment? Yes 01/08/2018 9:36 PM Wound Base Assessment Dressing intact, base not assessed 01/25/2018 9:30 PM Surrounding Skin Assessment Induration;Erythema 01/24/2018 3:00 PM Wound Site Closure Ceci 01/24/2018 3:00 PM Wound Drainage Amount Small 01/24/2018 3:00 PM Wound Drainage Description Yellow;Serous 01/24/2018 3:00 PM Wound Dressing Status Intact 01/25/2018 9:30 PM Wound Dressing and / or Treatment Abdominal Pad;Aquacel AG 01/24/2018 3:00 PM Wound Length (cm) (Wound Team Only) 19 cm 01/24/2018 3:00 PM Wound Width (cm) (Wound Team Only) 5 cm 01/24/2018 3:00 PM Wound Depth (cm) (Wound Team Only) 0.1 01/24/2018 3:00 PM Wound Volume (cm^3) (Wound Team Only) 9.5 cm^3 01/24/2018 3:00 PM Wound Healing % (Wound Team Only) 9.52 01/24/2018 3:00 PM Number of days: 57 Wounds (NOT for Pressure Injuries) 11/30/17 1427 Right;Anterior Neck Surgical Incision (Active) 11/30/17 1427 Neck Wound Orientation: Right;Anterior Wound Type: Surgical Incision Wound Type:: Wound Description (Comments): Number of days: 57 Wounds (NOT for Pressure Injuries) 12/14/17 1748 Left Abdomen Surgical Incision (Active) 12/14/17 1748 Abdomen Wound Orientation: Left Wound Type: Surgical Incision Wound Type:: Wound Description (Comments): SUTURES, CECI, XEROFORM, 4X4'S, ABDOMINAL PADS , TEGADERM, HYPA FIX TAPE Wound Image 01/17/2018 10:00 AM Agree With My Assessment? Except 12/30/2017 2:45 PM Wound Base Assessment Dressing intact, base not assessed 01/25/2018 9:30 PM Surrounding Skin Assessment Intact 01/25/2018 9:30 PM Wound Site Closure Wound Adhesive Bandage 01/25/2018 9:30 PM Wound Drainage Amount None 01/25/2018 9:30 PM Wound Drainage Description Serous;Yellow 01/25/2018 9:42 AM Wound Dressing Status Intact 01/25/2018 9:30 PM Wound Dressing and / or Treatment Abdominal Pad;Hypafix Tape 01/25/2018 9:30 PM Wound Length (cm) (Wound Team Only) 20 cm 01/24/2018 3:00 PM Wound Width (cm) (Wound Team Only) 4 cm 01/24/2018 3:00 PM Wound Depth (cm) (Wound Team Only) 0.1 01/24/2018 3:00 PM Wound Volume (cm^3) (Wound Team Only) 8 cm^3 01/24/2018 3:00 PM Wound Healing % (Wound Team Only) 4.76 01/24/2018 3:00 PM Number of days: 43 Wounds (NOT for Pressure Injuries) 12/20/17 1530 Right;Lower Abdomen Moisture Associated Skin Damage (Active) 12/20/17 1530 Abdomen Wound Orientation: Right;Lower Wound Type: Moisture Associated Skin Damage Wound Type:: Wound Description (Comments): Agree With My Assessment? Yes 01/06/2018 8:00 PM Wound Base Assessment Clean;Dry 01/25/2018 9:30 PM Surrounding Skin Assessment Dry;Intact 01/24/2018 3:00 PM Wound Site Closure None 01/23/2018 6:00 PM Wound Drainage Amount None 01/18/2018 8:10 AM Wound Drainage Description Serous 01/14/2018 9:08 AM Wound Dressing Status None 01/25/2018 9:30 PM Wound Dressing and / or Treatment Interdry AG Textile 01/25/2018 9:30 PM Number of days: 37 Wounds (NOT for Pressure Injuries) 12/23/17 1345 Left Labia (Active) 12/23/17 1345 Labia Wound Orientation: Left Wound Type: Wound Type:: Wound Description (Comments): Agree With My Assessment? Yes 01/07/2018 9:55 PM Wound Base Assessment Red;Slough 01/25/2018 9:30 PM Surrounding Skin Assessment Erythema 01/25/2018 9:30 PM Wound Site Closure Open to Air 01/24/2018 3:00 PM Wound Drainage Amount Scant 01/25/2018 9:30 PM Wound Drainage Description Serous 01/25/2018 9:30 PM Wound Dressing Status Intact 01/24/2018 8:43 PM Wound Dressing and / or Treatment A & D Ointment 01/25/2018 9:30 PM Wound Length (cm) (Wound Team Only) 2 cm 01/24/2018 3:00 PM Wound Width (cm) (Wound Team Only) 1 cm 01/24/2018 3:00 PM Wound Depth (cm) (Wound Team Only) 0.1 01/24/2018 3:00 PM Wound Volume (cm^3) (Wound Team Only) 0.2 cm^3 01/24/2018 3:00 PM Wound Healing % (Wound Team Only) 89.33 01/24/2018 3:00 PM Number of days: 34 Wounds (NOT for Pressure Injuries) 12/30/17 1002 Left;Anterior Surgical Incision stump (Active) 12/30/17 1002 Wound Orientation: Left;Anterior Wound Type: Surgical Incision Wound Type:: stump Wound Description (Comments): Suture, ceci, telfa and iodine, 4x4, and tegaderm Wound Image 01/21/2018 12:15 PM Agree With My Assessment? Yes 01/06/2018 8:00 PM Wound Base Assessment Dressing intact, base not assessed 01/25/2018 9:30 PM Surrounding Skin Assessment Induration 01/24/2018 3:00 PM Wound Site Closure None 01/24/2018 3:00 PM Wound Drainage Amount None 01/24/2018 3:00 PM Wound Drainage Description Brown;Serosanguineous 01/12/2018 10:55 PM Wound Dressing Status Intact 01/25/2018 9:30 PM Wound Dressing and / or Treatment Abdominal Pad;Aquacel AG;Hypafix Tape 2017 3:00 PM Wound Length (cm) (Wound Team Only) 25 cm 01/24/2018 3:00 PM Wound Width (cm) (Wound Team Only) 16 cm 01/24/2018 3:00 PM Wound Depth (cm) (Wound Team Only) 0.1 01/24/2018 3:00 PM Wound Volume (cm^3) (Wound Team Only) 40 cm^3 01/24/2018 3:00 PM Wound Healing % (Wound Team Only) -17.1 01/24/2018 3:00 PM Number of days: 27 Wounds (NOT for Pressure Injuries) 01/10/18 1100 Hip Surgical Incision (Active) 01/10/18 1100 Hip Wound Orientation: Wound Type: Surgical Incision Wound Type:: Wound Description (Comments): XEROFORM, 4X4S, HYPAFIX, WOUND VAC Wound Image 01/21/2018 12:15 PM Agree With My Assessment? Except 01/24/2018 4:00 AM Wound Base Assessment Dressing intact, base not assessed 01/25/2018 9:30 PM Surrounding Skin Assessment Red;Erythema 01/24/2018 3:00 PM Wound Site Closure Wound Adhesive Bandage 01/24/2018 3:00 PM Wound Drainage Amount Copious 01/25/2018 9:30 PM Wound Drainage Description Serosanguineous 01/25/2018 9:30 PM Wound Dressing Status Intact 01/25/2018 9:30 PM Wound Dressing and / or Treatment VAC @ ___ mm/Hg 01/25/2018 9:30 PM Wound Length (cm) (Wound Team Only) 8 cm 01/24/2018 3:00 PM Wound Width (cm) (Wound Team Only) 18 cm 01/24/2018 3:00 PM Wound Depth (cm) (Wound Team Only) 27 01/24/2018 3:00 PM Wound Volume (cm^3) (Wound Team Only) 3888 cm^3 01/24/2018 3:00 PM Wound Healing % (Wound Team Only) -66.15 01/24/2018 3:00 PM Tunneling in CM (Wound Team Only) 15 cm 01/24/2018 3:00 PM Tunnelling Location 3 01/24/2018 3:00 PM Number of days: 16 [REMOVED] Pressure Injury 01/14/18 1730 Right Ear Unstageable (Removed) 01/14/18 1730 Ear Pressure Injury Orientation: Right Pressure Injury Stages: Unstageable Pressure Injury Present On Admission: Y If this pressure injury is suspected to be device related, please select the device:: Tubing (Oxygen / Wound Vac / Drain) Removed 01/23/18 1843 Wound Dressing Status Open to Air 01/23/2018 8:25 PM Wound Drainage Amount None 01/23/2018 8:25 PM Wound Base Assessment [place] 01/23/2018 8:25 PM Surrounding Skin Assessment Dry;Intact 01/23/2018 8:25 PM [REMOVED] Ileal Conduit 12/30/17 1115 Left (Removed) 12/30/17 1115 Left Removed 12/30/17 1607 Colostomy 12/30/17 1209 Right (Active) 12/30/17 1209 Right Agree With My Assessment? Except 01/24/2018 4:00 AM Stoma Assessment [place] 01/25/2018 11:00 PM Drainage Description Brown 01/25/2018 11:00 PM Peristomal Skin Assessment Dry;Intact 01/25/2018 11:00 PM Dressing Status Changed/New 01/25/2018 11:00 PM Drain Output (ml) 300 ml 01/25/2018 11:00 PM Wound Care Team to follow, as will I. Thank you for this consultation of this patient. Although the patient has had a remote procedure, flap compromise persists with existing venous congestion, eschar, necrotic margins and marked lymphedema and drainage. The patient remains at EXTREME risk for flap failure with current situation. Compression and VAC therapy are being utilized to address mechanical issues regarding the flap. Nutritional requirements are also being addressed with the use of IV supplemental therapy The use of HBOT for compromised skin flaps and grafts has been reviewed in the literature and demonstrates the efficacy of HBOT therapy with respect to enhancement of skin graft and flap survival. Multiple different types of flaps have been analyzed in these studies including free skin grafts, pedicle flaps, random flaps, irradiated flaps, composite grafts as well as free flaps. Mechanisms of action for the use of HBOT include enhancement of fibroblast and collagen synthesis, creation of neovascularity, closing off of AV shunts and favorable effects on the microcirculation. The use of HBOT for the salvage of compromised grafts and flaps should be considered as a Class 1b intervention with levels I Through IV of clinical evidence to support its use. The stakes are high with an extreme risk of flap failure and close monitoring of response to therapy will be carried out with peer-review after 10-15 HBOT. This will be a multidisciplinary effort between Plastic Surgery, Orthopedics and Hyperbaric Medicine. * Emma Payton RN - 01/21/2018 4:55 PM CDT Diabetes education follow up: Spoke with ZULEIKA Nino from rehab. When asked how pt was progressing and if pt was ready for diabetes teaching, Mica reported that pt's wound was still not healing well and there was a possibility that pt would be readmitted to the inpatient setting. Given these circumstances, Mica and Educator did not feel pt was ready for teaching at this time. Educator asked Mica if she would keep us up to date on pt's discharge status to help us determine when pt will be ready and available for diabetes teaching. URMILA Tucker, RN Clinical Nurse Coordinator - Diabetes Education Nursing Clinical Excellence [facility] [email or web address] [phone] office [phone] pager * Nani Lynch DO - 01/17/2018 2:35 PM CDT Associated Order(s): CONSULT INFECTIOUS DISEASES PHYSICIAN This note is to remove new consult order. Please see ID progress note 01/17/18. * Valerie Young MA - 01/17/2018 1:47 PM CDT Associated Order(s): CONSULT NEUROREHABILITATION PSYCHOLOGY Formatting of this note may be different from the original. [id number] Pt was seen b/s for initial eval with no family or significant others present. Diagnosis: F33.1 Major depressive disorder, recurrent, moderate; F41.9 Anxiety; R/O Cognitive Impairment Requesting Physician: Jeb Reason for Request: Coping Relevant History: The following history was taken from available medical records unless otherwise indicated. 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 Pt was admitted post-operatively for IVC filter placement secondary to DVT and pelvic mass. Pt underwent scheduled hemipelvectomy on 12/14/17. After resection of the pelvis was performed, there was noted to be a small cystotomy as well as urethral injury. These were repaired by urology. Pt became septic with GBS, and ID was consulted. She is being treated with ertapenem. Diverting colostomy was placed on 12/30 due to stool saturating the wound. Her postoperative course was complicated by continued wound drainage and she was taken back to the OR on 01/10 for irrigation and debridement and wound vac placement. There were no obvious signs of infection of the wound; however, there were no obvious signs of healing given patient's poor nutritional status. She was started on tube feeds throughout her stay for nocturnal feeds. Psychiatry and psychology were consulted for coping and depression management. Endocrinology and internal medicine were consulted for ongoing medical management, hyponatremia and uncontrolled blood glucose. She developed several wounds along her abdominal panus and labia from significant swelling, for which wound team followed and provided dressing and ointment recommendations. On 2017, pt was transferred to inpatient rehab for continued acute medical management, nursing cares, and comprehensive therapies. Medical/Surgical History: Past Medical History: Diagnosis Date Anxiety Back pain Depression DM (diabetes mellitus) (HCC) 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 Past Surgical History: Procedure Laterality Date SKIN BIOPSY Left 11/30/2017 BIOPSY SKIN LEFT PELVIS performed by [facility] PELVIS OSTEOTOMY Left 12/14/2017 JAMIL PELVECTOMY performed by Tam[facility] URETER STENT PLACEMENT Bilateral 12/14/2017 CYSTORRHAPHY AND BLADDER NECK REPAIR, CYSTOSCOPY, performed by Spencer Purcell [facility] PERIPHERAL VASCULAR SURGERY Left 12/14/2017 LEFT ILIAC EXPOSURE performed by Pio Malagon DO [facility] LEG DEBRIDEMENT Left 01/10/2018 WOUND EXPLORATION LEFT HEMIPELVECTOMY, IRRIGATION AND DEBRIDEMENT, WOUND VAC PLACEMENT performed by Tamiko [facility] NM VOIDING CYSTOGRAM N/A 01/10/2018 CYSTOGRAM, MELCHOR CATHETER EXCHANGE performed by Tamiko [facility] SECTION HERNIA REPAIR MANDIBLE SURGERY Family History: Family History Problem Relation Age of Onset Osteoporosis Mother Arthritis-rheumatoid Maternal Grandmother Social/Vocational History: Pt is and lives with her , 2 daughters , a son-in-law, and her daughter's boyfriend in [place], [place]. Pt identified her , daughters, son, and her son's family as members of her social support network. 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 Pt did not endorse history of tobacco, alcohol , or illicit drug use. Psychiatric history is remarkable for recurrent depression and anxiety with onset over 10 years ago. She has undergone trials of antidepressants and is currently prescribed Wellbutrin, Buspar, and Valium, with some benefit. She endorsed a history of attending therapy, with benefit. Pt did not endorse SPED, ADHD, LD, suicide attempts, or hospitalizations. Findings: Pt was alert, oriented, and open/responsive to inquiry. Pt appeared to appropriately provide details regarding personal history, and no significant others were present to provide collateral information. Pt appeared to put forth adequate effort and was cooperative. Speech was soft and thought processes were connected and logical to content of conversation. Eye contact was within social norms and non-verbal behaviors were appropriate to context. Mood and affect were congruent and dysphoric. Pts reported mood was okay and pt did not endorse pervasive negative mood, suicidal ideation, or thoughts of harm toward self or others. Sleep was rated as good and appetite was not assessed as pt currently has an NG tube placed. Pain was reported as an 6-7/10 on eval and reported medications are effective. Pt reported changes in cognition in the areas of memory (losing track of conversations), slowed mentation, attention, concentration, and some word finding difficulty. She also reported some decline in vision. Pt reported difficulty using coping strategies in the hospital but has hobbies of spending time outside and doing yard work. Pt cited goals/motivators of "enjoying some things in life" and getting back to outdoor activities and reported personal strengths to include being family oriented and stable. Pt was provided with eval results and psychoeducation regarding cognition, pain , mood, and coping. I described the purpose and utility of cognitive screening to pt, and pt was open to this service returning to administer. Supportive and processing therapy was provided. Pt's coping skills, personal strengths, and goals/motivators were reviewed and reinforced. Coping/relaxation skills of relaxed breathing were introduced and practiced with the pt. Pt was encouraged to use these as needed. Pt was also encouraged to engage in activities to help cope with hospitalization, including engaging social supports and coloring. Pt acknowledged information and willingness to try skills as needed or as prompted by staff. The intent and utility of testing was relayed, and pt agreed to participate as needed. The purpose and method of the neurorehabilitation psychology service, as well as the limits of confidentiality, were described to the pt. The pt verbalized understanding and agreement to participate in the evaluation. Rehabilitation Recommendations: 1. Pt's cognition, mood, coping, and pain management will be monitored with treatment initiated as indicated. 2. Pt and family will be provided with feedback and education as appropriate. 3. Due to time constraints was unable to administer anxiety, depression, and cognitive screenings. Will return to administer. 4. Pt may benefit from reminders or cues to use coping strategies such as relaxed breathing or visualization. 5. Pt would likely benefit from re-engagement with outpatient psychotherapy following discharge. This was discussed with pt, and she was receptive to this recommendation. Expected Outcomes: 1. Pt will participate appropriately in rehabilitation therapy services. 2. Pt will likely require assistance at home to be provided by family. Thank you for asking our advice and opinion regarding the care of this pleasant pt. Valerie Young M.A. Horse Trainer Pager [phone] ATTESTATION: I discussed this session and pt's care with the graphics intern and agree with her report and POC as amended (in blue) above. Thank you for asking our assistance. We will continue to follow. Warren Kinney, PhD, ABPP * Nneka Garsia RN - 01/17/2018 11:33 AM CDT Associated Order(s): CONSULT WOUND/OSTOMY TEAM Formatting of this note may be different from the original. Wound Ostomy Note NAME:Beata Kaiser :1965 AGE: 52 y.o. ADMISSION DATE: 01/14/2018 DAYS ADMITTED: LOS: 3 days Reason for Consult/Visit: wound VAC Assessment/Plan: Principal Problem: Left hip amputation status Active Problems: Chondrosarcoma (HCC) Acute blood loss as cause of postoperative anemia Depression Anxiety DM (diabetes mellitus) (HCC) 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 Chronic pain Post-op pain Bacteremia Amputated left leg ([facility]) Candiduria Wounds (NOT for Pressure Injuries) 11/30/17 0853 Left Buttocks Surgical Incision (Active) 11/30/17 0853 Buttocks Wound Orientation: Left Wound Type: Surgical Incision Wound Type:: Wound Description (Comments): Wound Image 01/17/2018 10:00 AM Agree With My Assessment? Yes 01/08/2018 9:36 PM Wound Base Assessment Eschar;Dry;Gallardo 01/17/2018 10:00 AM Surrounding Skin Assessment Intact 01/17/2018 10:00 AM Wound Site Closure Ceci 01/17/2018 10:00 AM Wound Drainage Amount None 01/17/2018 10:00 AM Wound Drainage Description Serosanguineous 01/11/2018 11:00 AM Wound Dressing Status Changed 01/17/2018 10:00 AM Wound Dressing and / or Treatment Hypafix Tape;Abdominal Pad 01/17/2018 10:00 AM Wound Length (cm) (Wound Team Only) 21 cm 01/17/2018 10:00 AM Wound Width (cm) (Wound Team Only) 5 cm 01/17/2018 10:00 AM Wound Depth (cm) (Wound Team Only) 0.1 01/17/2018 10:00 AM Wound Volume (cm^3) (Wound Team Only) 10.5 cm^3 01/17/2018 10:00 AM Number of days: 48 Wounds (NOT for Pressure Injuries) 12/14/17 1748 Left Abdomen Surgical Incision (Active) 12/14/17 1748 Abdomen Wound Orientation: Left Wound Type: Surgical Incision Wound Type:: Wound Description (Comments): Wound Image 01/17/2018 10:00 AM Agree With My Assessment? Except 12/30/2017 2:45 PM Wound Base Assessment Gallardo;Yellow;Moist;Eschar 01/17/2018 10:00 AM Surrounding Skin Assessment Red;Intact;Edema 01/17/2018 10:00 AM Wound Site Closure None 01/17/2018 10:00 AM Wound Drainage Amount Scant 01/17/2018 10:00 AM Wound Drainage Description Gallardo 01/17/2018 10:00 AM Wound Dressing Status Changed 01/17/2018 10:00 AM Wound Dressing and / or Treatment Collagenase;Abdominal Pad 01/17/2018 10:00 AM Wound Length (cm) (Wound Team Only) 21 cm 01/17/2018 10:00 AM Wound Width (cm) (Wound Team Only) 4 cm 01/17/2018 10:00 AM Wound Depth (cm) (Wound Team Only) 0.1 01/17/2018 10:00 AM Wound Volume (cm^3) (Wound Team Only) 8.4 cm^3 01/17/2018 10:00 AM Number of days: 34 Wounds (NOT for Pressure Injuries) 12/20/17 1530 Right;Lower Abdomen Moisture Associated Skin Damage (Active) 12/20/17 1530 Abdomen Wound Orientation: Right;Lower Wound Type: Moisture Associated Skin Damage Wound Type:: Wound Description (Comments): Agree With My Assessment? Yes 01/06/2018 8:00 PM Wound Base Assessment [place] 01/17/2018 10:00 AM Surrounding Skin Assessment Intact 01/17/2018 10:00 AM Wound Site Closure None 01/17/2018 10:00 AM Wound Drainage Amount None 01/17/2018 10:00 AM Wound Drainage Description Serous 01/14/2018 9:08 AM Wound Dressing Status Changed 01/17/2018 10:00 AM Wound Dressing and / or Treatment Interdry [employer] 01/17/2018 10:00 AM Number of days: 28 Wounds (NOT for Pressure Injuries) 12/23/17 1345 Left Labia (Active) 12/23/17 1345 Labia Wound Orientation: Left Wound Type: Wound Type:: Wound Description (Comments): Agree With My Assessment? Yes 01/07/2018 9:55 PM Wound Base Assessment Gallardo;Yellow 01/17/2018 10:00 AM Surrounding Skin Assessment Edema 01/17/2018 10:00 AM Wound Site Closure Open to Air 01/17/2018 10:00 AM Wound Drainage Amount Scant 01/17/2018 10:00 AM Wound Drainage Description Serous 01/17/2018 10:00 AM Wound Dressing Status Changed 01/17/2018 10:00 AM Wound Dressing and / or Treatment A & D Ointment 01/17/2018 10:00 AM Wound Length (cm) (Wound Team Only) 7 cm 01/17/2018 10:00 AM Wound Width (cm) (Wound Team Only) 2.5 cm 01/17/2018 10:00 AM Wound Depth (cm) (Wound Team Only) 0.1 01/17/2018 10:00 AM Wound Volume (cm^3) (Wound Team Only) 1.75 cm^3 01/17/2018 10:00 AM Wound Healing % (Wound Team Only) 6.67 01/17/2018 10:00 AM Number of days: 25 Wounds (NOT for Pressure Injuries) 12/30/17 1002 Left;Anterior Surgical Incision stump (Active) 12/30/17 1002 Wound Orientation: Left;Anterior Wound Type: Surgical Incision Wound Type:: stump Wound Description (Comments): Wound Image 01/17/2018 10:00 AM Agree With My Assessment? Yes 01/06/2018 8:00 PM Wound Base Assessment Dry;Eschar 01/17/2018 10:00 AM Surrounding Skin Assessment Intact 01/17/2018 10:00 AM Wound Site Closure Ceci 01/17/2018 10:00 AM Wound Drainage Amount None 01/17/2018 10:00 AM Wound Drainage Description Brown;Serosanguineous 01/12/2018 10:55 PM Wound Dressing Status Changed 01/17/2018 10:00 AM Wound Dressing and / or Treatment Abdominal Pad;Hypafix Tape 01/17/2018 10:00 AM Wound Length (cm) (Wound Team Only) 28 cm 01/17/2018 10:00 AM Wound Width (cm) (Wound Team Only) 12.2 cm 01/17/2018 10:00 AM Wound Depth (cm) (Wound Team Only) 0.1 01/17/2018 10:00 AM Wound Volume (cm^3) (Wound Team Only) 34.16 cm^3 01/17/2018 10:00 AM Number of days: 18 Wounds (NOT for Pressure Injuries) 01/10/18 1100 Hip Surgical Incision (Active) 01/10/18 1100 Hip Wound Orientation: Wound Type: Surgical Incision Wound Type:: Wound Description (Comments): Wound Image 01/17/2018 10:00 AM Agree With My Assessment? Yes 01/10/2018 12:15 PM Wound Base Assessment Gallardo;Moist 01/17/2018 10:00 AM Surrounding Skin Assessment Intact;Edema 01/17/2018 10:00 AM Wound Site Closure Sutures 01/17/2018 10:00 AM Wound Drainage Amount Copious 01/17/2018 10:00 AM Wound Drainage Description Serous 01/17/2018 10:00 AM Wound Dressing Status Changed 01/17/2018 10:00 AM Wound Dressing and / or Treatment Hypafix Tape;VAC @ ___-125 black;VAC tx: Continuous, 01/17/2018 10:00 AM Wound Length (cm) (Wound Team Only) 7 cm 01/17/2018 10:00 AM Wound Width (cm) (Wound Team Only) 15 cm 01/17/2018 10:00 AM Wound Depth (cm) (Wound Team Only) 27 01/17/2018 10:00 AM Wound Volume (cm^3) (Wound Team Only) 2835 cm^3 01/17/2018 10:00 AM Wound Healing % (Wound Team Only) -21.15 01/17/2018 10:00 AM Tunneling in CM (Wound Team Only) 15 cm 01/17/2018 10:00 AM Tunnelling Location 3 01/17/2018 10:00 AM Number of days: 7 Colostomy 12/30/17 1209 Right (Active) 12/30/17 1209 Right Agree With My Assessment? Yes 01/10/2018 12:15 PM Stoma Assessment [place];Clean 01/17/2018 8:36 AM Drainage Description Brown 01/17/2018 8:36 AM Peristomal Skin Assessment Dry;Intact 01/17/2018 8:36 AM Dressing Status Clean;Dry;Intact;Bag Changed 01/17/2018 8:36 AM Drain Output (ml) 0 ml 01/15/2018 10:00 AM Procedure: Negative Wound Therapy Dressing Change Anesthesia Type: Not Applicable or None Provider(s) and Role: RN Negative Wound Pressure Device Type: KCI VAC Contact layer: no Wound dimension (length x width x depth, tunneling, undermining): 15.0cm x 7.0cm x 27+ cm( unable to get exact depth, can not reach that far). Tunneling at 3:00 at 15.0cm+, ( unable to reach far enough) Number of sponges in the wound prior to dressing change: no sticker present Number of sponges removed from the wound: 2 Type of sponge: Black foam Number of sponges placed in the wound: 3 Nneka Garsia RN Wound base cleaned with normal saline and gauze. Black vac foam applied and secured with adhesive drape. Dressing connected to wound vac with setting of - 125mmhg continuous. Next dressing change planned for 01/19/18. Pt seen today for wound vac change. We are managing a small portion of the surgical incision that is open and we are placing a wound vac. We are also managing the lower abdomen. This area we are putting collagenase on it and placing ABD pads over it. In hopes to soften the eschar from this area. Recommendations: Change lower mid/left Abdomen dressing daily by bedside RN Clean with saline moistened 4x4 Apply collagenase nickel thick to the area Cover with ABD pad and hypafix tape I placed Aquacel AG around the wound vac site. Pt has blisters to the skin around this area. Pt has Copious amounts of serous drainage and I feel it is leaking under the drape causing moisture and blisters. Hoping that the aquacel will absorb some of that fluid. Pt tolerated the procedure well, able to turn self and hold self over for dressing change. We will continue to follow closely. Opal Garsia RN, BSN Wound /Ostomy Team Pager [phone] After Hours Wound/Ostomy team pager [phone] * Jasper Betts, SANJAY - 01/17/2018 10:01 AM CDT Associated Order(s): CONSULT NURSING PAIN MANAGEMENT Pain Management Resource Team Consult requested by nursing staff Communicated with nurse regarding pain management strategies for this patient. Attempted to address concerns at this time. Patient wanted to know if it was okay if she did not take AM oxycodone SR. She had already made this decision to hold AM dose and see its efficacy throughout the day prior to my arrival on this nursing to nursing pain management consult. In addition she explained how she is attempting to push herself in waiting and extra hour for each dose of medication, that she tried last night with success. I provided positive encouragement for her intervention as well as gave praise for her physical productive in therapies. If any further assistance is needed, please feel free to call or re-consult. Pain Management Resource Team--pager [phone] * Sabina Rivers - 01/16/2018 8:33 AM CDT Associated Order(s): CONSULT DIETITIAN CLINICAL NUTRITION Clinical Nutrition Consult Summary Auto EN consult received. TFs ordered per recs; see 01/14 dietitian note for full assessment. Pt transferred to rehab. Note concern for ileus 01/06. Pt has no ostomy output recorded x 2 days but she was noted to have a BM 01/14, which may be related to tranfer to rehab. Milk of magnesia scheduled for this morning on to follow up on Wednesday as scheduled. Recommendation: Continue [id number] Consistent Carb Diet. Continue Nutren 1.5 @ 75ml/hr x's 6 hrs. Please be sure to give 3 [employer]Source with evening tube feeds. Ostomy OP has been less over past 3 days. Please monitor GI status as pt had ileus noted on 01/06. Sabina Woodward, MS, RD, LD Pager [phone] * Linus Pisano MD - 01/15/2018 5:05 PM CDT Associated Order(s): CONSULT ENDOCRINOLOGY PHYSICIAN Please see progress note from today. in this encounter Miscellaneous Notes * Case Mgmt DC Plan - Hakeem Escalona - 03/02/2018 4:36 PM CDT Formatting of this note may be different from the original. Case Management Progress Note NAME:Beata Kaiser : AGE: 52 y.o. ADMISSION DATE: 01/14/2018 DAYS ADMITTED: LOS: 47 days Todays Date: 03/02/2018 Plan Pt to d/c today 03/02 to home with [facility]. Pt's to provide transport around 5 pm. Interventions ? Support Support: Pt/Family Updates re:POC or DC Plan, Counseling for Adaptation to Illness ? Info or Referral Information or Referral to Community Resources: No Needs Identified ? Discharge Planning Discharge Planning: Home Health notified pt will need both IV Vanco and Erta at d/c. MICKI sent home infusion orders to [facility] fax: [phone]. [facility] agreeable to delivering medications and teaching at 3 pm. MICKI spoke with Carolina with [facility] to coordinate home IV antibiotics plan. After lengthy discussion with Sheridan Reyes and Nani rehab pharmacist, plan is for nurse to meet pt for first dose either at 8 pm tonight or 7 am tomorrow morning, depending on how long the trip home takes. All parties and rehab physicians agreeable to plan. Sheridan Reyes to provide daily wound care and IV antibiotics assistance. MICKI sent orders and AVS to [facility] at fax: [phone]. MICKI met with pt and pt's Marvin to review DCP. Pt and Marvin reported feeling comfortable with IV antibiotics at home, understanding of services, and follow up appointments. SW ensured that all needed supplies were sent home with pt. SW also confirmed pt 's prescriptions were filled appropriately at pharmacy. ? Medication Needs Medication Needs: Medication Prior-Auth ? Financial Financial: No Needs Identified ? Legal Legal: No Needs Identified ? Other Other/None: No needs identified Disposition ? Expected Discharge Date Expected Discharge Date: 03/02/18 Discharge Planning Comments: To complete all 20 treatments ? Transportation Does the patient need discharge transport arranged?: No Transportation Name, Phone and Availability #1: Pt's Marvin [phone] Does the patient use Medicaid Transportation?: No ? Next Level of Care (Acute Psych discharges only) ? Discharge Disposition Durable Medical Equipment No service has been selected for the patient. Destination No service has been selected for the patient. Home Care - Selection Complete Service Request Status Selected Specialties Address Phone Number Fax Number [facility] Selected Home Health Services [facility] [phone] Dialysis/Infusion No service has been selected for the patient. Hakeem Escalona LMSW Phone: [phone] Pager: [phone] * Case Mgmt DC Plan - William Spann RN - 03/02/2018 2:14 PM CDT Formatting of this note may be different from the original. Case Management Progress Note NAME:Beata Kaiser : AGE: 52 y.o. ADMISSION DATE: 01/14/2018 DAYS ADMITTED: LOS: 47 days Todays Date: 03/02/2018 Plan DMe planning Interventions ? Support Support: Pt/Family Updates re:POC or DC Plan, Counseling for Adaptation to Illness NCM spoke with patient/spouse about Discharge Equipment needs Pt Hosp bed to be delivered today by [facility] DME [phone], [id number] W/c and SB present for d/c. Pt has all other DME Pt no longer needs W/v NCm will call [facility] Wound Vac / fax , for return NCm will continue to assess and follow for any new Equipment needs before discharge William Spann RN- [phone] ? Info or Referral Information or Referral to Community Resources: No Needs Identified ? Discharge Planning Discharge Planning: Home Health ? Medication Needs Medication Needs: Medication Prior-Auth ? Financial Financial: No Needs Identified ? Legal Legal: No Needs Identified ? Other Other/None: No needs identified Disposition ? Expected Discharge Date Expected Discharge Date: 03/02/18 Discharge Planning Comments: To complete all 20 treatments ? Transportation Does the patient need discharge transport arranged?: No Transportation Name, Phone and Availability #1: Pt's Marvin [phone] Does the patient use Medicaid Transportation?: No ? Next Level of Care (Acute Psych discharges only) ? Discharge Disposition Durable Medical Equipment No service has been selected for the patient. [facility] Destination No service has been selected for the patient. Home Care No service has been selected for the patient. Dialysis/Infusion No service has been selected for the patient. * Rehab Team Conference - Loreta Benitez RN - 03/02/2018 11:16 AM CDT Formatting of this note may be different from the original. Team Conference Note Date of Admission: 01/14/2018 Date of Team Conference: 03/02/2018 Beata Kaiser is a 52 y.o. female. : 1965 MRN# : [id number] Team Conference Attendees: Ruth Allen MD, Attending Physician; Ravi Pride MD, Resident Physician; Hakeem Escalona [facility] [place], Social Work; William Spann RNpayroll accounting manager; Cherri Kinney PhD, ABPP, Neuropsychology;Halima Miranda PhD, Post Doctoral Fellow, Neuropsychology; Nani Magaña PharmD, Pharmacy; Loreta Benitez RN, Rehab Reflesher; Ruth LLAMAS/Tapan JACOBSON, Crosscutter ; Esteban Montoya OTR, Occupational Therapy; Hedy Pearce DPT, Physical Therapy; Serena Christian FURNITURE REMOVALIST'S ASSISTANT, Speech Therapy; Eunice Ruff, Clinical Medical Anthropology Director; Olena Carreon RN, Nursing Medical Update: Beata Kaiser is a 52 yo F who presented to [facility] on 12/13/17 for scheduled left hemipelvectomy for chondrosarcoma. Pt became septic with GBS, ID consulted, being treated with ertapenem. Diverting colostomy was placed on due to stool saturating the wound. Wound vac currently in place with MWF changes. Chrondrosarcomas/p hemipelvectomy - Wound Vac changes MWF. Planning on x20 HBOT finished 03/01 High grade fever - 02/26/18 pt with multiple fevers restarted broad spectrum abx, consulted ID GBS bacteremia w/ sepsis - Completed course of Abx, no monitoring off Generalized and phantom limb pain - gabapentin 600mg Q6h, increased nortriptyline to 75mg, oxycontin 10mg BID, oxycodone 20mg Q4h, IV fentanyl with wound vac changes Tremor - improved on decreased dose of gabapentin DVT - s/p IVC filter, continue xarelto DM2 - Endocrine consulted and adjusting insulin Nutrition - Regular diet Bladder - pulled melchor 02/18, working on continence Neuropsych: Patient reporting feeling anxious to go home, but is comforted by her and daughter's availability after discharge. States she's not feeling very motivated at this time. Team Goal: Patient will perform: household mobility, at wheelchair level, Modified independent, Adequate for discharge Pt will perform basic care and transfer with: Modified independence, Wheelchair level Discharge Planning Discharge Date: 03/03/18 To complete all 20 treatments Living Situation Prior to Admission Living Arrangements Type of Residence: Home, independent Living Arrangements: Spouse/significant other Bathroom Shower / Tub: Tub/Shower Unit How many levels in the residence?: 1 Can patient live on one level if needed?: Yes Does residence have entry and/or side stairs?: Yes (2 entry steps) Assistance needed prior to admit or anticipated on discharge: No Who provides assistance or could if needed?: Pt's Marvin and dtr's Lynn and Mica Are they in good health?: Yes Can support system provide 24/7 care if needed?: Yes Pt lives in a single level home with 2 entry steps. Pt's bathroom has a 3 ft wide door with standard toilet and tub/shower combo. Pt lives with her Marvin, dtrs Lynn (18 yo), Mica (29 yo), and adult son Skyler. 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 Lynn and Mica are DANCE DIRECTOR's and can assist with pt's care. Pt's family can provide consistent support, as needed, and physical assistance. Pt was independent with all ADL's, including working and driving, without device, prior to admission. Pt owns a single point cane. Plan Home with home health OT/PT DME Hospital bed with air mattress, wheelchair/cushion ([facility] to [facility] 03/01 and will provide loaner chair), slideboard, roller walker (can provide family information to purchase), padded drop-arm commode if melchor remains out, transport home? (pending car transfer), ramp complete Rehabilitation Plan Progress Transitioned lower body dressing at supine bed level to edge of bed with switchman and standing to pull tab dealer hips Upper body dressing from minimal assistance to stand by assistance. Squat pivot transfers with therapy staff require assist of only one person. Standing transfers with therapy have improved. Have initiated commode transfers within past week. Have initiated family training with spouse for transfers. Patient participated in therapeutic outing to restaurant with PT, OT staff. Barriers/Concerns Currently needing physical or setup assist for all transfers and wheelchair mobility. Needs ramp for home, not currently in place - plans to be in place in this weekend. Planning to attempt car transfer this week Patient's spouse needs further hands-on training. Plan Wheelchair evaluation tomorrow. Finalize any family training in preparation for possible d/c to home 03/02. Pt c/o Left surgical incision site. Pain relieved with PRN Oxycodone. Dressing to Left surgical site c/D/i. colostomy stoma red/ colostomy bag in place IV antibiotic training with spouse 03/02 Goals Weekly Goals Weekly Bed Mobility Goals: Patient will complete rolling with, Patient will perform sit to supine with, Patient will perform supine to sit with Patient will perform rolling with: Minimum assistance, Achieved Patient will perform sit to supine with: Modified independent, Adequate for discharge Patient will perform supine to sit with: Modified independent, Adequate for discharge Weekly Transfer Goals: Patient will complete sit to stand transfer with, Patient will complete stand to sit transfer with Patient will complete sit to stand transfer with: Minimum assistance, Adequate for discharge Patient will complete stand to sit transfer with: Minimum assistance, Adequate for discharge Patient will complete stand pivot transfer with: Moderate assistance, Adequate for discharge Patient will complete sliding board transfer with: Stand by assistance, Achieved Patient will complete squat pivot transfer with: Maximum assistance, Achieved Weekly Wheelchair Goals: Patient will propel manual wheelchair on level surfaces with, Patient will propel manual wheelchair up and down ramp with Patient will propel manual wheelchair up and down ramp with: Stand by assistance , Achieved Patient will propel manual wheelchair on level surfaces with: Supervision, Achieved Weekly Goals ADL Goals: Bathing, Dressing UE, Dressing LE Patient Will Perform Bathing: Modified Independent, In Wheelchair (at sink) Patient Will Perform UE Dressing: w/ Minimum Assist Patient Will Perform LE Dressing: w/ Moderate Assist Function Transfer Goals: All Function Transfers Pt Will Perform All Functional Transfers: w/ Stand By Assist (for management of lines) Nursing Short Term Goals Bladder Management: Yes Will decrease the number of bladder accidents during the day and/or night to: No accidents, Progressing Patient / Caregiver will verbalize signs & symptoms of urinary tract infection and what action to do with: Minimum verbal cues, Progressing Patient will follow time voiding program independently with: Minimum verbal cues , Progressing Bowel Management: Yes Will be able to verbalize dietary regimen that will regulate bowel function with : Minimum verbal cues, Progressing Will verbalize need to have a bowel movement daily/every other day (for constipation) with: Minimum verbal cues, Progressing Patient / Caregiver will verbalize knowledge of activity in relation to constipation with: Minimum verbal cues, Progressing Medication Management: Yes Will verbalize reason for medication with: Minimum verbal / written cues, Progressing Will verbalize dose and time for medication with: Minimum verbal / written cues , Progressing Will verbalize side effects of medication with: Minimum verbal / written cues, Progressing Skin Integrity: Yes Will verbalize optimal skin care routine with: Minimum verbal cues, Progressing Pain Management: Yes Will verbalize pain level at or between ____ at rest: 1-3, Progressing Will verbalize pain level at or between ____ with activity: 4-6, Progressing Safety: Yes Will verbalize 2-3 Fall risk factors with: Minimum verbal cues, Progressing Will demonstrate understanding of mobility precautions with: Minimum verbal cues , Progressing Will demonstrate understanding of own limitations with: Minimum verbal cues, Progressing Will verbalize the importance of using call light with: Minimum verbal cues, Progressing Disease Knowledge: Yes Will verbalize risk factors of disease process with: Minimum verbal cues, Progressing Nutrition: Yes Will demonstrate appropriate nutritional intake with: Progressing Functional Pope Measures Eating FIM: 7 - Complete independence Grooming FIM: 7 - Complete independence Bathing FIM: 5 - Set up Dressing - Upper Body FIM: 4 - Minimal contact assistance, patient performs 75% or more of grooming/bathing/dressing/toileting tasks Dressing - Lower Body FIM: 1 - Total assistance, patient performs less than 25% of grooming/bathing/dressing/toileting tasks Toileting FIM: 1 - Total assistance, requires 2 staff to assist Bladder FIM: 1 - Total assistance, patient expends less than 25% effort ( complete % of assist, if change diapers, total assist) Bowel FIM: 6 - No bowel movement, medication Transfers FIM: 3 - Moderate assistance, patient performs 50-74% of transferring tasks (lifting required) Toilet Transfers FIM: 3 - Moderate assistance, patient performs 50-74% of transferring tasks (lifting required) Shower Transfers FIM: 0 - Activity did not occur - Other (comments) (sponge bath only) Gait: 1 - Toal assistance, two or more people, < 50 feet Wheelchair FIM: 5 - Stand by assistance, greater than or equal to 150 feet Stairs FIM: 1 - Total assistance, ambulates up and down fewer than 4 stairs Comprehension FIM: 6 - Modified independence - Extra time Expression FIM: 6 - Modified independence - Extra time Social Interaction FIM: 6 - Modified independence - Able to interact in most situations and no prompting required Problem Solving FIM: 5 - Standby prompting - Able to recognize problems, make appropriate decisions, initiates and carries out a sequence of steps to solve routine problems >90% of the time, prompting <10% Memory FIM: 5 - Supervision - Able to recognize people frequently encountered, remembers daily routines, responds to requests of others requiring prompting only under stressful or unfamiliar conditions, no more than 10% of time Associated attestation - Ruth Allen MD - 03/02/2018 2:21 PM CDT I personally led the interdisciplinary team meeting and concur with all decisions made by the interdisciplinary team. Ruth Allen MD * Case Mgmt DC Plan - Hakeem Escalona - 03/01/2018 3:47 PM CDT Formatting of this note may be different from the original. Case Management Progress Note NAME:Beata Kaiser : AGE: 52 y.o. ADMISSION DATE: 01/14/2018 DAYS ADMITTED: LOS: 46 days Todays Date: 03/01/2018 Plan Anticipate d/c 03/03 to home with [facility] and possibly [facility], pending pt stability and plan for antibiotics. Pt's to transport. Interventions ? Support Support: Pt/Family Updates re:POC or DC Plan, Counseling for Adaptation to Illness SW notified that surgery is planned for pt in a few weeks, and physicians agreeable to d/c to home before returning for surgery. Pt currently on two IV antibiotics, so she will potentially need home infusion. SW met with pt to review DCP and potential need for home infusion. Pt reported her and adult dtr will be coming tomorrow for d/c and would be able to receive training on home infusion. Pt reported feeling comfortable with home infusion, if needed. Pt reported the ramp is not completed at her home yet, but her is working on it. SW inquired about pt feeling comfortable with d/c to home and discussed other options, including SNF. Pt agreeable to considering options and discussing with her family. SW to follow up at end of day today. SW later met with pt and provided a SNF list in pt's area. SW also advised that plan for antibiotics won't be determined until tomorrow, so d/c could potentially be pushed to 03/03. SW and pt agreeable to 3 working plans including d/c tomorrow to home with HH if antibiotic plan is determined early enough, d/c to home 03/03 with HH if antibiotic plan is not determined in time, or d/c to SNF closer to home if there pt is not comfortable with IV antibiotics at home and the ramp isn't complete/no safe way to enter the home. Pt agreeable to thinking about her preferences and updating her family. ? Info or Referral Information or Referral to Community Resources: No Needs Identified ? Discharge Planning Discharge Planning: Home Health MICKI sent referral to [facility] via [facility]. Aniyha with [facility] notified they are out of network with pt's insurance, but reported pt has met her in network out of pocket max, so she would be covered 100% with an in network agency. MICKI sent referral to [facility]. Kenneth with [facility] reported pt has met her in network out of pocket max, so will likely be covered 100%, but prior auth has to be completed. MICKI spoke with Kristen with wound team. Kristen agreeable to contacting [facility] to provide wound care instructions. Kristen also agreeable to providing rehab nursing with instructions on what supplies to send home with pt , as the agency won't be able to get supplies to pt until Wednesday. Kristen reports Dr. Sánchez will follow orders. ? Medication Needs Medication Needs: Medication Prior-Auth ? Financial Financial: No Needs Identified ? Legal Legal: No Needs Identified ? Other Other/None: No needs identified Disposition ? Expected Discharge Date Expected Discharge Date: 03/02/18 Discharge Planning Comments: To complete all 20 treatments ? Transportation Does the patient need discharge transport arranged?: No Transportation Name, Phone and Availability #1: Pt's Marvin [phone] Does the patient use Medicaid Transportation?: No ? Next Level of Care (Acute Psych discharges only) ? Discharge Disposition Durable Medical Equipment No service has been selected for the patient. [facility] No service has been selected for the patient. Home Care No service has been selected for the patient. Dialysis/Infusion No service has been selected for the patient. Hakeem Escalona LMSW Phone: [phone] Pager: [phone] * Case Mgmt DC Plan - Hakeem Escalona - 02/28/2018 4:05 PM CDT Formatting of this note may be different from the original. Case Management Progress Note NAME:Beata Kaiser : AGE: 52 y.o. ADMISSION DATE: 01/14/2018 DAYS ADMITTED: LOS: 45 days Todays Date: 02/28/2018 Plan Anticipate d/c 03/02 to home with [facility] vs alternate plan, pending surgical plans and infection/IV antibiotics. Interventions ? Support Support: Pt/Family Updates re:POC or DC Plan, Counseling for Adaptation to Illness ? Info or Referral Information or Referral to Community Resources: No Needs Identified ? Discharge Planning Discharge Planning: Home Health SW contacted [facility] and spoke with assistant in nursing, Keiko. Keiko thoroughly reviewed pt's case with SW and stated they would be able to accept. Keiko interested in speaking with [facility] wound nurse to review plan for pt's wounds at home. Keiko also requested pt is sent home with enough supplies to last until next week. SW agreeable to requesting wound care supplies be sent home, wound nurse contact [facility], and keeping [facility] updated on DCP. Keiko with [facility] also reported they have a wound care nurse who is contracted with them, who would be available to see pt on Wednesday. Keiko would personally visit pt on , but feels their wound care nurse would be most appropriate. MICKI contacted by Emma with [employer] inquiring about training. Micki advised that DCP is not finalized at this time, but tentatively schedule education for tomorrow over the lunch hour. ? Medication Needs Medication Needs: Medication Prior-Auth ? Financial Financial: No Needs Identified ? Legal Legal: No Needs Identified ? Other Other/None: No needs identified Disposition ? Expected Discharge Date Expected Discharge Date: 03/02/18 Discharge Planning Comments: To complete all 20 treatments ? Transportation Does the patient need discharge transport arranged?: No Transportation Name, Phone and Availability #1: Pt's Marvin [phone] Does the patient use Medicaid Transportation?: No ? Next Level of Care (Acute Psych discharges only) ? Discharge Disposition Durable Medical Equipment No service has been selected for the patient. [facility] No service has been selected for the patient. Home Care No service has been selected for the patient. Dialysis/Infusion No service has been selected for the patient. Hakeem Escalona LMSW Phone: [phone] Pager: [phone] * Case Mgmt DC Plan - Hakeem Escalona - 02/25/2018 4:16 PM CDT Formatting of this note may be different from the original. Case Management Progress Note NAME:Beata Kaiser : AGE: 52 y.o. ADMISSION DATE: 01/14/2018 DAYS ADMITTED: LOS: 42 days Todays Date: 02/25/2018 Plan Anticipate d/c 03/02 to home with [facility], pending surgery plans and pt stability. Interventions ? Support Support: Pt/Family Updates re:POC or DC Plan, Counseling for Adaptation to Illness ? Info or Referral Information or Referral to Community Resources: No Needs Identified ? Discharge Planning Discharge Planning: Home Health MICKI faxed updated notes and wound care orders to [facility] at fax . MICKI contacted [facility] and spoke with Beata in intake. Beata agreeable to reviewing case with her nursing staff and finishing manager, as well as pursuing insurance auth. Micki and Beata to follow up on Wednesday. ? Medication Needs Medication Needs: Medication Prior-Auth ? Financial Financial: No Needs Identified ? Legal Legal: No Needs Identified ? Other Other/None: No needs identified Disposition ? Expected Discharge Date Expected Discharge Date: 03/02/18 Discharge Planning Comments: To complete all 20 treatments ? Transportation Does the patient need discharge transport arranged?: No Transportation Name, Phone and Availability #1: Pt's Marvin [phone] Does the patient use Medicaid Transportation?: No ? Next Level of Care (Acute Psych discharges only) ? Discharge Disposition Durable Medical Equipment No service has been selected for the patient. [facility] No service has been selected for the patient. Home Care No service has been selected for the patient. Dialysis/Infusion No service has been selected for the patient. Hakeem Escalona LMSW Phone: [phone] Pager: [phone] * Case Mgmt DC Plan - Hakeem Escalona - 02/24/2018 4:36 PM CDT Formatting of this note may be different from the original. Case Management Progress Note NAME:Beata Kaiser : AGE: 52 y.o. ADMISSION DATE: 01/14/2018 DAYS ADMITTED: LOS: 41 days Todays Date: 02/24/2018 Plan Anticipate d/c 03/02 to home with [facility] , pending pt stability. Pt stable for family transport home. Interventions ? Support Support: Pt/Family Updates re:POC or DC Plan, Counseling for Adaptation to Illness MICKI reviewed EMR and obtained updates from rehab team conference. MICKI met with pt to provide update on DCP, including anticipate d/c date of 03/02. SW and pt discussed wound care at home and planning for either nursing wound care or other plan, depending on [facility] wound teams recommendations. SW agreeable to working with [facility] and [facility] wound team to determine safest plan. Pt reported that her HERNAN is going to build a ramp this weekend. Pt reported car transfers went well and she feels comfortable with family transport. Pt inquired about DME and SW notified HARVINDER Spann of pt's questions. MICKI contacted Opal with wound team to inquire about ability for pt to return home safety with needed wound care. Opal agreeable to discussing case with pt's surgeons and notifying SW of recommendations. Opal notified SW later in the day, that surgeons may d/c wound vac and pack wound prior to d/c. Surgeons are agreeable to d/c date. Once new wound care orders are placed, SW will follow up with [facility] to confirm they can manage the wound. ? Info or Referral Information or Referral to Community Resources: No Needs Identified ? Discharge Planning Discharge Planning: Home Health ? Medication Needs Medication Needs: Medication Prior-Auth ? Financial Financial: No Needs Identified ? Legal Legal: No Needs Identified ? Other Other/None: No needs identified Disposition ? Expected Discharge Date Expected Discharge Date: 03/02/18 Discharge Planning Comments: To complete all 20 treatments ? Transportation Does the patient need discharge transport arranged?: No Transportation Name, Phone and Availability #1: Pt's Marvin [phone] Does the patient use Medicaid Transportation?: No ? Next Level of Care (Acute Psych discharges only) ? Discharge Disposition Durable Medical Equipment No service has been selected for the patient. [facility] No service has been selected for the patient. Home Care No service has been selected for the patient. Dialysis/Infusion No service has been selected for the patient. Hakeem Escalona LMSW Phone: [phone] Pager: [phone] * Case Mgmt DC Plan - William Spann RN - 02/23/2018 3:40 PM CDT Formatting of this note may be different from the original. Case Management Progress Note NAME:Beata Kaiser : AGE: 52 y.o. ADMISSION DATE: 01/14/2018 DAYS ADMITTED: LOS: 40 days Todays Date: 02/23/2018 Plan DMe planning Interventions ? Support Support: Pt/Family Updates re:POC or DC Plan, Counseling for Adaptation to Illness NCM spoke with patient about Discharge Equipment needs Pt will need hosp bed, wound vac and SB for d/c. NCm sent referral to [employer] [phone]/ fax [phone] for slide board NCm sent referral to [facility] Wound [facility] / fax . NC sent referral to [facility] near [place], [place] for Hospital bed. [phone] [id number] Therapy will order custom w/c. Pt to have ramps installed this weekend. NCM provided patient with [employer] Medical Equipment, , form to get Equipment before discharge Pt will need RW which will be OOP. NCm will continue to assess and follow for any new Equipment needs before discharge William Spann RN-JO [phone] ? Info or Referral Information or Referral to Community Resources: No Needs Identified ? Discharge Planning Discharge Planning: Home Health ? Medication Needs Medication Needs: Medication Prior-Auth ? Financial Financial: No Needs Identified ? Legal Legal: No Needs Identified ? Other Other/None: No needs identified Disposition ? Expected Discharge Date Expected Discharge Date: 03/02/18 Discharge Planning Comments: To complete all 20 treatments ? Transportation Does the patient need discharge transport arranged?: No Transportation Name, Phone and Availability #1: Pt's Marvin [phone] Does the patient use Medicaid Transportation?: No ? Next Level of Care (Acute Psych discharges only) ? Discharge Disposition Durable Medical Equipment No service has been selected for the patient. [facility] No service has been selected for the patient. [facility] No service has been selected for the patient. [facility] No service has been selected for the patient. * Rehab Team Conference - Ruth Berger - 02/23/2018 11:29 AM CDT Formatting of this note may be different from the original. Team Conference Note Date of Admission: 01/14/2018 Date of Team Conference: 02/23/2018 Beata Kaiser is a 52 y.o. female. : 1965 MRN# : [id number] Team Conference Attendees: Ruth Allen MD, Attending Physician;Ravi Pride MD, Resident Physician; Judith Gilbert MD, Resident Physician; Hakeem Escalona [facility] [place], Social Work;William Spann RNpayroll accounting manager;Cherri Kinney PhD, ABPP, Neuropsychology; Halima Miranda PhD, Post Doctoral Fellow, Neuropsychology; Valerie Saravia MA, Horse Trainer, Psychology; Leia Zimmerman RD LD, Clinical Nutrition; Bridget Fish RN, Clincal Medical Anthropology Director; Eunice Vargas RN, Clincal Medical Anthropology Director; Nani Magaña PharmD, Pharmacy; Batool Lyons RN, Nurse Aerial Photogrammetrist; Ruth LLAMAS/Tapan JACOBSON, Crosscutter; Serena Christian FURNITURE REMOVALIST'S ASSISTANT, Speech Therapy; Esteban Montoya OTR, Occupational Therapy; Hedy Pearce DPT, Physical Therapy; Ashley Smith RN, Nursing Medical Update: Beata Kaiser is a 52 yo F who presented to [facility] on 12/13/17 for scheduled left hemipelvectomy for chondrosarcoma. Pt became septic with GBS, ID consulted, being treated with ertapenem. Diverting colostomy was placed on due to stool saturating the wound. Wound vac currently in place with MWF changes. Chrondrosarcomas/p hemipelvectomy - Wound Vac changes MWF. Planning on x20 HBOT GBS bacteremia w/ sepsis - Completed course of Abx, no monitoring off Generalized and phantom limb pain - gabapentin 600mg Q6h, increased nortriptyline to 75mg, oxycontin 10mg BID, oxycodone 20mg Q4h, IV fentanyl with wound vac changes Tremor - improved on decreased dose of gabapentin DVT - s/p IVC filter, continue xarelto DM2 - Endocrine consulted and adjusting insulin Nutrition - Regular diet Bladder - pulled melchor 02/18, working on continence NeuroPsych: Patient did not endorsed depressive or anxiety symptoms. Team Goal: Patient will perform: household mobility, at wheelchair level, Modified independent, Progressing Pt will perform basic care and transfer with: Modified independence, Wheelchair level Discharge Planning Discharge Date: 03/02/18 To complete all 20 treatments Living Situation Prior to Admission Living Arrangements Type of Residence: Home, independent Living Arrangements: Spouse/significant other Bathroom Shower / Tub: Tub/Shower Unit How many levels in the residence?: 1 Can patient live on one level if needed?: Yes Does residence have entry and/or side stairs?: Yes (2 entry steps) Assistance needed prior to admit or anticipated on discharge: No Who provides assistance or could if needed?: Pt's Marvin and dtr's Lynn and Mica Are they in good health?: Yes Can support system provide 24/7 care if needed?: Yes Pt lives in a single level home with 2 entry steps. Pt's bathroom has a 3 ft wide door with standard toilet and tub/shower combo. Pt lives with her Marvin, dtrs Lynn (18 yo), Mica (29 yo), and adult son Skyler. 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 Lynn and Mica are DANCE DIRECTOR's and can assist with pt's care. Pt's family can provide consistent support, as needed, and physical assistance. Pt was independent with all ADL's, including working and driving, without device, prior to admission. Pt owns a single point cane. Plan Home with home health OT/PT DME Hospital bed with air mattress, wheelchair/cushion ([employer] to [facility] 03/01 and will provide loaner chair), slideboard, roller walker (can provide family information to purchase), padded drop-arm commode if melchor remains out, transport home? (pending car transfer), Wound Vac, Slideboard (wooden) Rehabilitation Plan Progress Transitioned lower body dressing at supine bed level to edge of bed with switchman and standing to pull tab dealer hips Upper body dressing from minimal assistance to stand by assistance. Squat pivot transfers with therapy staff require assist of only one person. Standing transfers with therapy have improved. Have initiated commode transfers within past week. Have initiated family training with spouse for transfers. Patient participated in therapeutic outing to restaurant with PT, OT staff. Barriers/Concerns Currently needing physical or setup assist for all transfers and wheelchair mobility. Needs ramp for home, not currently in place - plans to be in place in this weekend. Planning to attempt car transfer this week Patient's spouse needs further hands-on training. bladder incontinence despite TV's Plan Further family training with spouse. Further assessment with lightweight vs ultralightweight wheelchair, consider testing performance in each chair on carpet and with transfers. Squat pivot transfers, sit to/from stand and stand pivot transfers with roller walker, hopping in parallel bars, supine tolerance on therapy mat, consider Nustep or Pilates, bed mobility training, R LE strengthening, sitting balance, core strengthening. Wheelchair evaluation c/o pain in L surgical incision site, relieved by PRN tylenol/oxy; Wound vac L buttock, hyperbaric treatment for healing; envision matress and Q2 turns for pressure relief; Family training with spouse 03/01 Provide time voids to improve continence Goals Weekly Goals Weekly Bed Mobility Goals: Patient will complete rolling with, Patient will perform sit to supine with, Patient will perform supine to sit with Patient will perform rolling with: Minimum assistance, Achieved Patient will perform sit to supine with: Modified independent, Progressing Patient will perform supine to sit with: Modified independent, Progressing Weekly Transfer Goals: Patient will complete sit to stand transfer with, Patient will complete stand to sit transfer with Patient will complete sit to stand transfer with: Minimum assistance, Progressing Patient will complete stand to sit transfer with: Minimum assistance, Progressing Patient will complete stand pivot transfer with: Moderate assistance, Progressing Patient will complete sliding board transfer with: Stand by assistance, Achieved Patient will complete squat pivot transfer with: Maximum assistance, Progressing Weekly Wheelchair Goals: Patient will propel manual wheelchair on level surfaces with, Patient will propel manual wheelchair up and down ramp with Patient will propel manual wheelchair up and down ramp with: Stand by assistance , Achieved Patient will propel manual wheelchair on level surfaces with: Supervision, Achieved Weekly Goals ADL Goals: Bathing, Dressing UE, Dressing LE Patient Will Perform Bathing: Modified Independent, In Wheelchair (at sink) Patient Will Perform UE Dressing: w/ Minimum Assist Patient Will Perform LE Dressing: w/ Moderate Assist Function Transfer Goals: All Function Transfers Pt Will Perform All Functional Transfers: w/ Stand By Assist (for management of lines) Nursing Short Term Goals Bladder Management: Yes Will decrease the number of bladder accidents during the day and/or night to: Progressing, No accidents Patient / Caregiver will verbalize signs & symptoms of urinary tract infection and what action to do with: Progressing, Minimum verbal cues Patient will follow time voiding program independently with: Progressing, Maximum verbal cues Bowel Management: Yes Will be able to verbalize dietary regimen that will regulate bowel function with : Progressing, Moderate verbal cues Will verbalize need to have a bowel movement daily/every other day (for constipation) with: Progressing, Moderate verbal cues Patient / Caregiver will verbalize knowledge of activity in relation to constipation with: Progressing, Moderate verbal cues Medication Management: Yes Will verbalize reason for medication with: Progressing, Moderate verbal / written cues Will verbalize dose and time for medication with: Progressing, Moderate verbal / written cues Will verbalize side effects of medication with: Progressing, Moderate verbal / written cues Skin Integrity: Yes Will verbalize optimal skin care routine with: Progressing, Minimum verbal cues Pain Management: Yes Will verbalize pain level at or between ____ at rest: Progressing, 1-3 Will verbalize pain level at or between ____ with activity: Progressing, 7-9 Safety: Yes Will verbalize 2-3 Fall risk factors with: Progressing, Minimum verbal cues Will demonstrate understanding of mobility precautions with: Progressing, Minimum verbal cues Will demonstrate understanding of own limitations with: Progressing, Minimum verbal cues Will verbalize the importance of using call light with: No verbal cues Disease Knowledge: Yes Will verbalize risk factors of disease process with: Progressing, Minimum verbal cues Nutrition: Yes Will demonstrate appropriate nutritional intake with: Progressing Functional Pope Measures Eating FIM: 7 - Complete independence Grooming FIM: 6 - Modified independence - Extra Time (3 times normal) Bathing FIM: 5 - Set up Dressing - Upper Body FIM: 5 - Set up Dressing - Lower Body FIM: 1 - Total assistance, requires 2 staff to assist ( one to steady in standing, one to pull pants up) Toileting FIM: 2 - Maximal assistance, patient performs 25-49% of grooming/ bathing/dressing/toileting tasks Bladder FIM: 1 - Total assistance, patient expends less than 25% effort ( complete % of assist, if change diapers, total assist) Bowel FIM: 5 - Set up Transfers FIM: 3 - Moderate assistance, patient performs 50-74% of transferring tasks (lifting required) Toilet Transfers FIM: 3 - Moderate assistance, patient performs 50-74% of transferring tasks (lifting required) Shower Transfers FIM: 0 - Activity did not occur - Other (comments) (sponge bath only at this time) Gait: 1 - Toal assistance, two or more people, < 50 feet Wheelchair FIM: 5 - Supervision, greater than or equal to 150 feet Stairs FIM: 1 - Total assistance, ambulates up and down fewer than 4 stairs Comprehension FIM: 6 - Modified independence - Extra time Expression FIM: 6 - Modified independence - Extra time Social Interaction FIM: 6 - Modified independence - Able to interact and may require medication for control Problem Solving FIM: 5 - Standby prompting - Able to recognize problems, make appropriate decisions, initiates and carries out a sequence of steps to solve routine problems >90% of the time, prompting <10% Memory FIM: 5 - Supervision - Able to recognize people frequently encountered, remembers daily routines, responds to requests of others requiring prompting only under stressful or unfamiliar conditions, no more than 10% of time Associated attestation - Ruth Allen MD - 02/23/2018 3:20 PM CDT I personally led the interdisciplinary team meeting and concur with all decisions made by the interdisciplinary team. Ruth Allen MD * Case Mgmt DC Plan - Hakeem Escalona - 02/17/2018 4:18 PM CDT Formatting of this note may be different from the original. Case Management Progress Note NAME:Beata Kaiser : AGE: 52 y.o. ADMISSION DATE: 01/14/2018 DAYS ADMITTED: LOS: 34 days Todays Date: 02/17/2018 Plan Anticipate d/c 03/02 to home with [facility], pending pt stability. Interventions ? Support Support: Pt/Family Updates re:POC or DC Plan, Counseling for Adaptation to Illness SW reviewed EMR and obtained updates from rehab team conference. SW met with pt to provide update on DCP, including anticipated d/c date of 03/02, to allow for final HBO treatment on 03/01. Pt agreeable to plan and inquired about home wound care. SW advised that [facility] was given her information to review to ensure they can care for pt's wound. SW to discuss pt's needs with [facility] and determine alternate plan for wound care, if needed. Pt reported her HERNAN is coming to assist with ramp building. Pt's employer has offered to assist with bathroom remodeling. SW and pt discussed transport home. SW advised transportation could be arranged , but it would be an out of pocket cost. Pt reported she would like to do family transport home. ? Info or Referral Information or Referral to Community Resources: No Needs Identified ? Discharge Planning Discharge Planning: Home Health ? Medication Needs Medication Needs: Medication Prior-Auth ? Financial Financial: No Needs Identified ? Legal Legal: No Needs Identified ? Other Other/None: No needs identified Disposition ? Expected Discharge Date Expected Discharge Date: 03/02/18 Discharge Planning Comments: To complete all 20 treatments ? Transportation Does the patient need discharge transport arranged?: No Transportation Name, Phone and Availability #1: Pt's Marvin [phone] Does the patient use Medicaid Transportation?: No ? Next Level of Care (Acute Psych discharges only) ? Discharge Disposition Durable Medical Equipment No service has been selected for the patient. Destination No service has been selected for the patient. Home Care No service has been selected for the patient. Dialysis/Infusion No service has been selected for the patient. Hakeem Escalona [facility] [place] Phone: [phone] Pager: [phone] * Rehab Team Conference - Loreta Benitez RN - 02/16/2018 10:47 AM CDT Formatting of this note may be different from the original. Team Conference Note Date of Admission: 01/14/2018 Date of Team Conference: 02/16/2018 Beata Kaiser is a 52 y.o. female. : 1965 MRN# : [id number] Team Conference Attendees: Ruth Allen MD, Attending Physician; Ravi Pride MD, Resident Physician; Hakeem Escalona SENIOR TAX ACCOUNTANT, Social Work; William Spann RNpayroll accounting manager; Cherri Kinney PhD, ABPP, Neuropsychology;Halima Miranda PhD, Post Doctoral Fellow, Neuropsychology; Leia Zimmerman RD LD, Clinical Nutrition; Nani Magaña PharmD, Pharmacy; Loreta Benitez RN, Rehab Reflesher; Ruth LLAMAS/Tapan JACOBSON, Crosscutter; Serena Christian FURNITURE REMOVALIST'S ASSISTANT, Speech Therapy, Esteban Montoya OTR, Occupational Therapy; Hedy Pearce DPT, Physical Therapy; Julia Frost RN, Nursing Medical Update: Beata Kaiser is a 52 yo F who presented to [facility] on 12/13/17 for scheduled left hemipelvectomy for chondrosarcoma. Pt became septic with GBS, ID consulted, being treated with ertapenem. Diverting colostomy was placed on 12/30 due to stool saturating the wound. Wound vac currently in place with MWF changes. Chrondrosarcomas/p hemipelvectomy - Wound Vac changes MWF. Planning on x20 HBOT GBS bacteremia w/ sepsis - ID following, d/c abx 02/15 per ID recs Generalized and phantom limb pain - gabapentin 600mg Q6h, increased nortriptyline to 75mg, oxycontin 10mg BID, oxycodone 20mg Q4h, IV fentanyl with wound vac changes Tremor - improved on decreased dose of gabapentin DVT - s/p IVC filter, continue xarelto DM2 - Endocrine consulted and adjusting insulin Nutrition - Current diet: Able to d/c corpak 2/2 good calorie/protein intake NeuroPsych: Patient reported depressed mood and tearfulness and some anxiety symptoms surrounding the hyperbaric treatments. Team Goal: Patient will perform: household mobility, at wheelchair level, Modified independent, Progressing Pt will perform basic care and transfer with: Modified independence, Wheelchair level Discharge Planning Discharge Date: 02/28/18 Living Situation Prior to Admission Living Arrangements Type of Residence: Home, independent Living Arrangements: Spouse/significant other Bathroom Shower / Tub: Tub/Shower Unit How many levels in the residence?: 1 Can patient live on one level if needed?: Yes Does residence have entry and/or side stairs?: Yes (2 entry steps) Assistance needed prior to admit or anticipated on discharge: No Who provides assistance or could if needed?: Pt's Marvin and dtr's Lynn and Mica Are they in good health?: Yes Can support system provide 12/04 care if needed?: Yes Pt lives in a single level home with 2 entry steps. Pt's bathroom has a 3 ft wide door with standard toilet and tub/shower combo. Pt lives with her Marvin, dtrs Lynn (18 yo), Mica (29 yo), and adult son Skyler. 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 Lynn and Mica are DANCE DIRECTOR's and can assist with pt's care. Pt's family can provide consistent support, as needed, and physical assistance. Pt was independent with all ADL's, including working and driving, without device, prior to admission. Pt owns a single point cane. Plan Home with [facility] OT/PT/RN DME Hospital bed with air mattress, wheelchair/cushion (Numotion to eval closer to discharge), slideboard, ramp, roller walker, transport home? Rehabilitation Plan Progress Improved lower body dressing from total to moderate assistance with adaptive equipment Consistently getting into wheelchair to complete grooming tasks at sink (seated) Completing stand pivot transfers from bed to wheelchair for morning ADLs Improved tolerance in wheelchair Improved squat pivot transfers Performing an increased number of sit to/from stand transfers with walker in therapy. Have initiated hopping in parallel bars this week. Barriers/Concerns Continues to be limited in time spent in wheelchair d/t pain and discomfort Currently needing physical or setup assist for all transfers and wheelchair mobility. Needs ramp for home, not currently in place. Has lengthy car ride home (2 hours), currently not tolerating sitting more than 60 minutes, 2-3x/day. Anticipate difficulty with car transfer, may need to pursue alternate transport. impaired mobility 2/2 lt leg procedure and line wound vac and melchor. Plan Squat pivot transfers, sit to/from stand and stand pivot transfers with roller walker, hopping in parallel bars, wheelchair mobility, supine tolerance on therapy mat, consider Nustep or Pilates, bed mobility training, wheelchair mobility, R LE strengthening, sitting balance, core strengthening, consider therapeutic outing end of next week Patient taking oxycodone PRN for Lt hip pain /surgical site lt hip with W/vac / Lt buttock surgical site treatment continued and patient has envision matress for pressure relief Sit up in wheelchair for at least 1 meal / day - consider meal group Patient to empty colostomy consistently Family training with spouse Encourage Prosource and Boost drinks daily Consider therapeutic outing next week Encourage patient to lay flat in hospital bed Encourage pleasant activities and positive self-talk Goals Weekly Goals Weekly Bed Mobility Goals: Patient will complete rolling with, Patient will perform sit to supine with, Patient will perform supine to sit with Patient will perform rolling with: Minimum assistance, Progressing Patient will perform sit to supine with: Stand by assistance, Achieved, Modified independent, Progressing Patient will perform supine to sit with: Stand by assistance, Achieved, Modified independent, Progressing Weekly Transfer Goals: Patient will complete sit to stand transfer with, Patient will complete stand to sit transfer with Patient will complete sit to stand transfer with: Minimum assistance, Progressing Patient will complete stand to sit transfer with: Minimum assistance, Progressing Patient will complete stand pivot transfer with: Moderate assistance, Progressing Patient will complete sliding board transfer with: Stand by assistance, Achieved Patient will complete squat pivot transfer with: Maximum assistance, Progressing Weekly Wheelchair Goals: Patient will propel manual wheelchair on level surfaces with, Patient will propel manual wheelchair up and down ramp with Patient will propel manual wheelchair up and down ramp with: Stand by assistance , Progressing Patient will propel manual wheelchair on level surfaces with: Supervision, Achieved Weekly Goals ADL Goals: Bathing, Dressing UE, Dressing LE Patient Will Perform Bathing: Modified Independent, In Wheelchair (at sink) Patient Will Perform UE Dressing: w/ Minimum Assist Patient Will Perform LE Dressing: w/ Moderate Assist Function Transfer Goals: All Function Transfers Pt Will Perform All Functional Transfers: w/ Stand By Assist (for management of lines) Nursing Short Term Goals Bladder Management: Yes Patient / Caregiver will verbalize signs & symptoms of urinary tract infection and what action to do with: Progressing Bowel Management: Yes Will be able to verbalize dietary regimen that will regulate bowel function with : Progressing Will verbalize need to have a bowel movement daily/every other day (for constipation) with: Progressing Patient / Caregiver will verbalize knowledge of activity in relation to constipation with: Progressing Medication Management: Yes Will verbalize reason for medication with: Progressing Will verbalize dose and time for medication with: Progressing Will verbalize side effects of medication with: Progressing Skin Integrity: Yes Will verbalize optimal skin care routine with: Progressing Pain Management: Yes Will verbalize pain level at or between ____ at rest: Progressing Will verbalize pain level at or between ____ with activity: Progressing Safety: Yes Will verbalize 2-3 Fall risk factors with: Progressing Will demonstrate understanding of mobility precautions with: Progressing Will demonstrate understanding of own limitations with: Progressing Will verbalize the importance of using call light with: Progressing Disease Knowledge: Yes Will verbalize risk factors of disease process with: Progressing Nutrition: Yes Will demonstrate appropriate nutritional intake with: Progressing Functional Pope Measures Eating FIM: 7 - Complete independence Grooming FIM: 7 - Complete independence Bathing FIM: 5 - Set up Dressing - Upper Body FIM: 4 - Minimal contact assistance, patient performs 75% or more of grooming/bathing/dressing/toileting tasks Dressing - Lower Body FIM: 3 - Moderate assistance, patient performs 50-74% or more of grooming/bathing/dressing/toileting tasks Toileting FIM: 1 - Total assistance, patient performs less than 25% of grooming/ bathing/dressing/toileting tasks Bladder FIM: 1 - Total assistance, patient expends less than 25% effort ( complete % of assist, if change diapers, total assist) Bowel FIM: 1 - Total assistance, patient expends less than 25% effort (complete % of assist, if change diapers, total assist) Transfers FIM: 3 - Moderate assistance, patient performs 50-74% of transferring tasks (lifting required) Toilet Transfers FIM: 0 - Activity did not occur - Refused Shower Transfers FIM: 0 - Activity did not occur - Refused Gait: 1 - Toal assistance, two or more people, < 50 feet Wheelchair FIM: 5 - Supervision, greater than or equal to 150 feet Stairs FIM: 1 - Total assistance, ambulates up and down fewer than 4 stairs Comprehension FIM: 6 - Modified independence - only mild difficulty understaing complex/abstract information, no prompting required Expression FIM: 6 - Modified independence - Able to express abstract information , mild difficulty but no prompting Social Interaction FIM: 6 - Modified independence - Able to interact in most situations and no prompting required Problem Solving FIM: 5 - Standby prompting - Able to recognize problems, make appropriate decisions, initiates and carries out a sequence of steps to solve routine problems >90% of the time, prompting <10% Memory FIM: 6 - Modified independence - Able to recognize people frequently encountered, remembers daily routines, responds to requests of others using enfironmental cues, prompts or aids Associated attestation - Ruth Allen MD - 02/16/2018 1:56 PM CDT I personally led the interdisciplinary team meeting and concur with all decisions made by the interdisciplinary team. Ruth Allen MD * Case Mgmt DC Plan - Hakeem Escalona - 02/11/2018 3:13 PM CDT Formatting of this note may be different from the original. Case Management Progress Note NAME:Beata Kaiser : AGE: 52 y.o. ADMISSION DATE: 01/14/2018 DAYS ADMITTED: LOS: 28 days Todays Date: 02/11/2018 Plan Anticipate d/c 02/28 to home with , pending pt stability. Interventions ? Support Support: Pt/Family Updates re:POC or DC Plan, Counseling for Adaptation to Illness ? Info or Referral Information or Referral to Community Resources: No Needs Identified ? Discharge Planning Discharge Planning: Home Health contacted by Beata with [facility]. Beata agreeable to following for d/c and obtaining insurance auth. [id number]. Beata will need updated clinicals closer to d/c. ? Medication Needs Medication Needs: Medication Prior-Auth ? Financial Financial: No Needs Identified ? Legal Legal: No Needs Identified ? Other Other/None: No needs identified Disposition ? Expected Discharge Date Expected Discharge Date: 02/28/18 ? Transportation Does the patient need discharge transport arranged?: No Transportation Name, Phone and Availability #1: Pt's Marvin [phone] Does the patient use Medicaid Transportation?: No ? Next Level of Care (Acute Psych discharges only) ? Discharge Disposition Durable Medical Equipment No service has been selected for the patient. [facility] Destination No service has been selected for the patient. [facility] Home Care No service has been selected for the patient. [facility] Dialysis/Infusion No service has been selected for the patient. Hakeem Escalona [facility] Phone: [phone] Pager: [phone] * Case Mgmt DC Plan - Hakeem Escalona - 02/10/2018 1:32 PM CDT Formatting of this note may be different from the original. Case Management Progress Note NAME:Beata Kaiser : AGE: 52 y.o. ADMISSION DATE: 01/14/2018 DAYS ADMITTED: LOS: 27 days Todays Date: 02/10/2018 Plan Anticipate d/c 02/28 to home with HH, pending pt stability. Interventions ? Support Support: Pt/Family Updates re:POC or DC Plan, Counseling for Adaptation to Illness MICKI reviewed EMR and obtained updates from rehab team conference. MICKI met with pt to provide update on DCP, including anticipated d/c date of 02/28 to allow pt to complete HBO treatments on 02/25. MICKI advised HH is recommended. Pt agreeable to referral to [facility] . Pt reports that she still does not feel well, but is tolerating treatments and therapies. ? Info or Referral Information or Referral to Community Resources: No Needs Identified ? Discharge Planning Discharge Planning: Home Health MICKI sent referral to [facility] via [facility]. ? Medication Needs Medication Needs: Medication Prior-Auth ? Financial Financial: No Needs Identified ? Legal Legal: No Needs Identified ? Other Other/None: No needs identified Disposition ? Expected Discharge Date Expected Discharge Date: 02/28/18 ? Transportation Does the patient need discharge transport arranged?: No Transportation Name, Phone and Availability #1: Pt's Marvin [phone] Does the patient use Medicaid Transportation?: No ? Next Level of Care (Acute Psych discharges only) ? Discharge Disposition Durable Medical Equipment No service has been selected for the patient. [facility] Destination No service has been selected for the patient. Home Care No service has been selected for the patient. [facility] Dialysis/Infusion No service has been selected for the patient. Hakeem Escalona [facility] Phone: [phone] Pager: [phone] * Rehab Team Conference - Ruth Allen MD - 02/09/2018 11:05 AM CDT Formatting of this note may be different from the original. I personally led the interdisciplinary team meeting and concur with all decisions made by the interdisciplinary team. Ruth Allen MD Team Conference Note Date of Admission: 01/14/2018 Date of Team Conference: 02/09/2018 Beata Kaiser is a 52 y.o. female. : 1965 MRN# : [id number] Team Conference Attendees: Ruth Allen MD, Attending Physician; Ravi Pride MD, Resident Physician; Hakeem Escalona SENIOR TAX ACCOUNTANT, Social Work; William Spann RNpayroll accounting manager; Cherri Kinney PhD, ABPP, Neuropsychology;Halima Miranda PhD, Post Doctoral Fellow, Neuropsychology; Leia Zimmerman RD LD, Clinical Nutrition; Nani Magaña PharmD, Pharmacy; Loreta Benitez RN, Rehab Reflesher; Ruth LLAMAS/Tapan JACOBSON, Crosscutter; Serena Christian FURNITURE REMOVALIST'S ASSISTANT, Speech Therapy, Gianna Saucedo, OTR Occupational Therapy; Hedy Pearce DPT, Physical Therapy; Olena Carreon RN, Nursing Medical Update: Beata Kaiser is a 52 yo F who presented to [facility] on 12/13/17 for scheduled left hemipelvectomy for chondrosarcoma. Pt became septic with GBS, ID consulted, being treated with ertapenem. Diverting colostomy was placed on due to stool saturating the wound. Wound vac currently in place with MWF changes. Chrondrosarcomas/p hemipelvectomy - Wound Vac changes MWF. Planning on x20 HBOT GBS bacteremia w/ sepsis - ID following, Vanc and meropenem restarted 2/2 fever 5/9 Generalized and phantom limb pain - gabapentin 800mg Q6h, oxycontin 10mg BID, oxycodone 20mg Q4h, IV fentanyl with wound vac changes DVT - s/p IVC filter, continue xarelto DM2 - Endocrine consulted and adjusting insulin Nutrition - Current diet: Able to d/c corpak 2/2 good calorie/protein intake NeuroPsych: Patient endorsed depressive and anxiety symptoms. Team Goal: Patient will perform: household mobility, at wheelchair level, Modified independent, Progressing Pt will perform basic care and transfer with: Modified independence, Wheelchair level Discharge Planning Discharge Date: 02/28/18 Living Situation Prior to Admission Living Arrangements Type of Residence: Home, independent Living Arrangements: Spouse/significant other Bathroom Shower / Tub: Tub/Shower Unit How many levels in the residence?: 1 Can patient live on one level if needed?: Yes Does residence have entry and/or side stairs?: Yes (2 entry steps) Assistance needed prior to admit or anticipated on discharge: No Who provides assistance or could if needed?: Pt's Marvin and dtr's Lynn and Mica Are they in good health?: Yes Can support system provide 12/04 care if needed?: Yes Pt lives in a single level home with 2 entry steps. Pt's bathroom has a 3 ft wide door with standard toilet and tub/shower combo. Pt lives with her Marvin, dtrs Lynn (18 yo), Mica (29 yo), and adult son Skyler. 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 Lynn and Mica are DANCE DIRECTOR's and can assist with pt's care. Pt's family can provide consistent support, as needed, and physical assistance. Pt was independent with all ADL's, including working and driving, without device, prior to admission. Pt owns a single point cane. Plan Home with home health OT/PT DME Hospital bed with air mattress, wheelchair/cushion (Numotion to eval closer to discharge), slideboard, roller walker, transport home?, ramp for home Rehabilitation Plan Progress Improved bathing from minimal assistance to stand by assistance with use of long handled sponge Improved participation with donning compression shorts - improved rolling and bridging Consistently getting into wheelchair to complete grooming tasks at sink (seated) Have initiated consistent squat pivot transfers in physical therapy Have begun sit to stand transfers in parallel bars more consistently this past week, now with emphasis of pushing to stand (vs pulling on bars to stand). Has also progressed to performing sit to stand to roller walker. Barriers/Concerns Continues to be limited in time spent in wheelchair d/t pain and discomfort Currently needing physical or setup assist for all transfers and wheelchair mobility. Needs ramp for home, not currently in place. Has lengthy car ride home (2 hours), currently not tolerating sitting more than 60 minutes, 2-3x/day. Anticipate difficulty with car transfer, may need to pursue alternate transport. Plan Work towards standing and squat pivot transfers, identify optimal seating position for increasing out of bed tolerance, bed mobility training, wheelchair mobility, R LE strengthening, sitting balance, core strengthening, Pilates? Constant L hip phantom pain. Scheduled oxycontin & PRN oxycodone given. Extra oxycodone available on MWF prior to wound dsg changes. Wound care team following. Groin area has a non-pitting edema & pitting +1 to RLE. Pt has envision matress for pressure relief. Ocassional repositioning at [facility] per pt request. Sit up in wheelchair for at least 1 meal / day - offer meal group? Encourage engagement with colostomy management Encourage relaxed breathing Goals Weekly Goals Weekly Bed Mobility Goals: Patient will complete rolling with, Patient will perform sit to supine with, Patient will perform supine to sit with Patient will perform rolling with: Minimum assistance, Progressing Patient will perform sit to supine with: Stand by assistance, Achieved, Modified independent, Progressing Patient will perform supine to sit with: Stand by assistance, Achieved, Modified independent, Progressing Weekly Transfer Goals: Patient will complete sit to stand transfer with, Patient will complete stand to sit transfer with Patient will complete sit to stand transfer with: Minimum assistance, Progressing Patient will complete stand to sit transfer with: Minimum assistance, Progressing Patient will complete stand pivot transfer with: Moderate assistance, Progressing Patient will complete sliding board transfer with: Stand by assistance, Achieved Patient will complete squat pivot transfer with: Maximum assistance, Progressing Weekly Wheelchair Goals: Patient will propel manual wheelchair on level surfaces with, Patient will propel manual wheelchair up and down ramp with Patient will propel manual wheelchair up and down ramp with: Stand by assistance , Progressing Patient will propel manual wheelchair on level surfaces with: Supervision, Achieved Weekly Goals ADL Goals: Bathing, Dressing UE, Dressing LE Patient Will Perform Bathing: Modified Independent, In Wheelchair (at sink) Patient Will Perform UE Dressing: w/ Minimum Assist Patient Will Perform LE Dressing: w/ Moderate Assist Function Transfer Goals: All Function Transfers Pt Will Perform All Functional Transfers: w/ Stand By Assist (for management of lines) Nursing Short Term Goals Bladder Management: Yes Patient / Caregiver will verbalize signs & symptoms of urinary tract infection and what action to do with: Minimum verbal cues, Progressing Bowel Management: Yes Will be able to verbalize dietary regimen that will regulate bowel function with : Minimum verbal cues, Progressing Will verbalize need to have a bowel movement daily/every other day (for constipation) with: No verbal cues, Progressing Patient / Caregiver will verbalize knowledge of activity in relation to constipation with: Minimum verbal cues, Progressing Medication Management: Yes Will verbalize reason for medication with: Minimum verbal / written cues, Progressing Will verbalize dose and time for medication with: Moderate verbal / written cues , Progressing Will verbalize side effects of medication with: Moderate verbal / written cues Skin Integrity: Yes Will verbalize optimal skin care routine with: Moderate verbal cues, Progressing Pain Management: Yes Will verbalize pain level at or between ____ at rest: 1-3, Progressing Will verbalize pain level at or between ____ with activity: 4-6, Progressing Safety: Yes Will verbalize 2-3 Fall risk factors with: Minimum verbal cues, Progressing Will demonstrate understanding of mobility precautions with: Minimum verbal cues , Progressing Will demonstrate understanding of own limitations with: Minimum verbal cues, Progressing Will verbalize the importance of using call light with: Achieved Disease Knowledge: Yes Will verbalize risk factors of disease process with: Progressing Nutrition: Yes Will demonstrate appropriate nutritional intake with: Progressing Functional Pope Measures Eating FIM: 7 - Complete independence Grooming FIM: 7 - Complete independence Bathing FIM: 5 - Set up Dressing - Upper Body FIM: 4 - Minimal contact assistance, patient performs 75% or more of grooming/bathing/dressing/toileting tasks Dressing - Lower Body FIM: 1 - Total assistance, patient performs less than 25% of grooming/bathing/dressing/toileting tasks Toileting FIM: 1 - Total assistance, patient performs less than 25% of grooming/ bathing/dressing/toileting tasks (melchor, colostomy) Bladder FIM: 1 - Total assistance, patient expends less than 25% effort ( complete % of assist, if change diapers, total assist) Bowel FIM: 1 - Total assistance, patient expends less than 25% effort (complete % of assist, if change diapers, total assist) Transfers FIM: 1 - Total assistance, two or more people (Sit to/from stand) Toilet Transfers FIM: 0 - Activity did not occur - Other (comments) (does not use toilet d/t melchor/ostomy) Shower Transfers FIM: 0 - Activity did not occur - Other (comments) (sponge bath only d/t multiple dressings/wounds) Wheelchair FIM: 5 - Supervision, greater than or equal to 150 feet Stairs FIM: 1 - Total assistance, ambulates up and down fewer than 4 stairs Comprehension FIM: 6 - Modified independence - Extra time Expression FIM: 6 - Modified independence - Able to express abstract information , mild difficulty but no prompting Social Interaction FIM: 5 - Supervision required - Able to interact appropriately >90% of the time, prompting <10% Problem Solving FIM: 5 - Standby prompting - Able to recognize problems, make appropriate decisions, initiates and carries out a sequence of steps to solve routine problems >90% of the time, prompting <10% Memory FIM: 6 - Modified independence - Able to recognize people frequently encountered, remembers daily routines, responds to requests of others using enfironmental cues, prompts or aids * Critical Results - Jaclyn Yang - 02/07/2018 7:40 AM CDT Critical result or procedure called (document test and value, and read back): 6.6 HgB Time MD/STEEL FIXER Notified: 0725 MD/STEEL FIXER Name: Ravi Pride MD/STEEL FIXER Response/Orders Given: STAT CBC complete at 0735 * Case Mgmt DC Plan - Hakeem Escalona - 02/03/2018 12:01 PM CDT Formatting of this note may be different from the original. Case Management Progress Note NAME:Beata Kaiser : AGE: 52 y.o. ADMISSION DATE: 01/14/2018 DAYS ADMITTED: LOS: 20 days Todays Date: 02/03/2018 Plan Anticipate d/c 02/28 to home with HH, pending pt stability. Pt to have 20 HBO treatments, likely finishing 02/25. Pt will likely need stretcher van transport home. Interventions ? Support Support: Pt/Family Updates re:POC or DC Plan, Counseling for Adaptation to Illness MICKI reviewed EMR and obtained updates from rehab team conference. SW met with pt to provide update on treatment plan and anticipated d/c date of 02/28 with recommendations for HH. SW advised that tentative plan is for pt to have a modified therapy schedule to allow for HBO therapy M-F at 1:30, with tentative d /c date of 02/28. Pt agreeable to plan and prefers [facility] . Pt reported she has been discussing ramp building with her . SW requested HARVINDER Spann follow up with pt and pt's to assist with ramp. ? Info or Referral Information or Referral to Community Resources: No Needs Identified ? Discharge Planning Discharge Planning: Home Health ? Medication Needs Medication Needs: Medication Prior-Auth ? Financial Financial: No Needs Identified ? Legal Legal: No Needs Identified ? Other Other/None: No needs identified Disposition ? Expected Discharge Date Expected Discharge Date: 02/28/18 ? Transportation Does the patient need discharge transport arranged?: No Transportation Name, Phone and Availability #1: Pt's Marvin [phone] Does the patient use Medicaid Transportation?: No ? Next Level of Care (Acute Psych discharges only) ? Discharge Disposition Durable Medical Equipment No service has been selected for the patient. Destination No service has been selected for the patient. Home Care No service has been selected for the patient. Dialysis/Infusion No service has been selected for the patient. Hakeem Escalona LMSW Phone: [phone] Pager: [phone] * Rehab Team Conference - Ruth Berger - 02/02/2018 11:02 AM CDT Formatting of this note may be different from the original. Team Conference Note Date of Admission: 01/14/2018 Date of Team Conference: 02/02/2018 Beata Kaiser is a 52 y.o. female. : 1965 MRN# : [id number] Team Conference Attendees: Ruth Allen MD, Attending Physician;Ravi Pride MD, Resident Physician; Hakeem Escalona SENIOR TAX ACCOUNTANT, Social Work;William Spann RNpayroll accounting manager; Cherri Kinney PhD, ABPP, Neuropsychology;Halima Miranda PhD, Post Doctoral Fellow, Neuropsychology; Leia Zimmerman RD LD, Clinical Nutrition; Loreta Benitez RN, Rehab Reflesher; Ruth LLAMAS/Tapan JACOBSON, Crosscutter; Serena Christian FURNITURE REMOVALIST'S ASSISTANT, Speech Therapy; Esteban Montoya OTR, Occupational Therapy; Hedy Pearce DPT, Physical Therapy; Christin Mckeon RN, Nursing Medical Update: Beata Kaiser is a 52 yo F who presented to [facility] on 12/13/17 for scheduled left hemipelvectomy for chondrosarcoma. Pt became septic with GBS, ID consulted, being treated with ertapenem. Diverting colostomy was placed on due to stool saturating the wound. Wound vac currently in place with MWF changes. Chrondrosarcomas/p hemipelvectomy - Wound Vac changes MWF. Planning on x20 HBOT GBS bacteremia w/ sepsis - ID following, Vanc and meropenem restarted 2/2 fever 01/26 Generalized and phantom limb pain - gabapentin 800mg Q6h, oxycontin 10mg BID, oxycodone 20mg Q4h, IV fentanyl with wound vac changes DVT - s/p IVC filter, continue xarelto DM2 - Endocrine consulted and adjusting insulin Nutrition - Current diet: Able to d/c corpak 2/2 good calorie/protein intake NeuroPsych: Patient endorsed depressive and anxiety symptoms. Team Goal: Patient will perform: household mobility, at wheelchair level, Modified independent, Progressing Pt will perform basic care and transfer with: Modified independence, Wheelchair level Discharge Planning Discharge Date: 02/28/18 Living Situation Prior to Admission Living Arrangements Type of Residence: Home, independent Living Arrangements: Spouse/significant other Bathroom Shower / Tub: Tub/Shower Unit How many levels in the residence?: 1 Can patient live on one level if needed?: Yes Does residence have entry and/or side stairs?: Yes (2 entry steps) Assistance needed prior to admit or anticipated on discharge: No Who provides assistance or could if needed?: Pt's Marvin and dtr's Lynn and Mica Are they in good health?: Yes Can support system provide 24/7 care if needed?: Yes Pt lives in a single level home with 2 entry steps. Pt's bathroom has a 3 ft wide door with standard toilet and tub/shower combo. Pt lives with her Marvin, dtrs Lynn (18 yo), Mica (29 yo), and adult son Skyler. 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 Lynn and Mica are DANCE DIRECTOR's and can assist with pt's care. Pt's family can provide consistent support, as needed, and physical assistance. Pt was independent with all ADL's, including working and driving, without device, prior to admission. Pt owns a single point cane. Plan Home with home health OT/PT DME Hospital bed with air mattress, wheelchair/cushion (Numotion to eval closer to discharge), slideboard, transport home Rehabilitation Plan Progress Improved to one person stand by assistance to manage lines and place/remove board for slide board transfers Improved dynamic sitting balance for ADLs Improved to one person assistance to don compression shorts with improved rolling and ability to bridge Out of bed to chair more often (2-3 times per day, 30-60 minutes at a time) Has progressed to standing in parallel bars with therapy more frequently, for increased duration (50-70 seconds), with less assist (1 person) Have initiated wheelchair evaluation but formal evaluation to be completed closer to discharge to better determine seat dimensions (significant edema still present) Barriers/Concerns Continues to be limited in time spent in wheelchair d/t pain and discomfort Currently needing physical or setup assist for all transfers and wheelchair mobility. Needs ramp for home, not currently in place. Has lengthy car ride home (2 hours), currently not tolerating sitting more than 60 minutes, 2-3x/day. Anticipate difficulty with car transfer, may need to pursue alternate transport. Concern for little/no progress of wound healing. Plan Work towards standing and squat pivot transfers, identify optimal seating position for increasing out of bed tolerance, bed mobility training, wheelchair mobility, R LE strengthening, sitting balance, core strengthening, Pilates L hip and phantom limb pain. oxycodone q4 PRN, and has scheduled oxycontin q12. pt also has extra dose of oxycodone carlo prior to wound dsg changes. wound team changing wound vac site and dsgs on left side and posterior, MWF dsg changes. nursing managing interdry dsg to R groin and biatain foam to labia. pt has envision mattress for pressure relief. turning q2 from supine to R side. Modified therapy schedule with hyperbaric treatments Sit up in wheelchair for at least 1 meal / day - consider meal group Encourage patient to participate with colostomy management, providing education. Encourage relaxation breathing for pain and anxiety management. Provide patient with information/education about care plan to decrease anxiety. Goals Weekly Goals Weekly Bed Mobility Goals: Patient will complete rolling with, Patient will perform sit to supine with, Patient will perform supine to sit with Patient will perform rolling with: Minimum assistance, Progressing Patient will perform sit to supine with: Minimum assistance, Achieved, Stand by assistance Patient will perform supine to sit with: Minimum assistance, Progressing Weekly Transfer Goals: Patient will complete sliding board transfer with, Patient will complete squat pivot transfer with Patient will complete sliding board transfer with: Moderate assistance, Achieved , Stand by assistance, Progressing Patient will complete squat pivot transfer with: Maximum assistance, Progressing Weekly Wheelchair Goals: Patient will propel manual wheelchair on level surfaces with, Patient will propel manual wheelchair up and down ramp with Patient will propel manual wheelchair up and down ramp with: Stand by assistance , Progressing Patient will propel manual wheelchair on level surfaces with: Moderate assistance, Achieved, Supervision, Progressing Weekly Goals ADL Goals: Bathing, Dressing UE, Dressing LE Patient Will Perform Bathing: Modified Independent, In Wheelchair (at sink) Patient Will Perform UE Dressing: w/ Minimum Assist Patient Will Perform LE Dressing: w/ Moderate Assist Function Transfer Goals: All Function Transfers Pt Will Perform All Functional Transfers: w/ Stand By Assist (for management of lines) Nursing Short Term Goals Bladder Management: Yes Patient / Caregiver will verbalize signs & symptoms of urinary tract infection and what action to do with: Minimum verbal cues, Progressing Bowel Management: Yes Will be able to verbalize dietary regimen that will regulate bowel function with : No verbal cues, Progressing Will verbalize need to have a bowel movement daily/every other day (for constipation) with: No verbal cues, Progressing Patient / Caregiver will verbalize knowledge of activity in relation to constipation with: No verbal cues, Progressing Medication Management: Yes Will verbalize reason for medication with: Minimum verbal / written cues, Progressing Will verbalize dose and time for medication with: Minimum verbal / written cues , Progressing Will verbalize side effects of medication with: Minimum verbal / written cues, Progressing Skin Integrity: Yes Will verbalize optimal skin care routine with: Moderate verbal cues, Progressing Pain Management: Yes Will verbalize pain level at or between ____ at rest: 1-3, Progressing Will verbalize pain level at or between ____ with activity: 4-6, Progressing Safety: Yes Will verbalize 2-3 Fall risk factors with: Minimum verbal cues, Progressing Will demonstrate understanding of mobility precautions with: Minimum verbal cues , Progressing Will demonstrate understanding of own limitations with: Minimum verbal cues, Progressing Will verbalize the importance of using call light with: No verbal cues, Progressing Nutrition: Yes Will demonstrate appropriate nutritional intake with: Moderate verbal cues, Progressing Functional Pope Measures Eating FIM: 7 - Complete independence Grooming FIM: 7 - Complete independence Bathing FIM: 4 - Minimal contact assistance, patient performs 75% or more of grooming/bathing/dressing/toileting tasks Dressing - Upper Body FIM: 4 - Minimal contact assistance, patient performs 75% or more of grooming/bathing/dressing/toileting tasks Dressing - Lower Body FIM: 1 - Total assistance, requires 2 staff to assist Toileting FIM: (melchor and colostomy) Bladder FIM: 1 - Total assistance, patient expends less than 25% effort ( complete % of assist, if change diapers, total assist) Bowel FIM: 3 - Moderate assistance to maintain an external device Transfers FIM: 4 - Minimal assistance, patient performs 75% or more of transferring tasks (Slideboard) Toilet Transfers FIM: 0 - Activity did not occur - Other (comments) (does not use toilet d/t melchor/ostomy) Shower Transfers FIM: 0 - Activity did not occur - Other (comments) (sponge bath only d/t multiple dressings/wounds) Gait: 1 - Toal assistance, two or more people, < 50 feet Wheelchair FIM: 5 - Set up, manages wheelchair parts, greater than or equal to 150 feet Stairs FIM: 1 - Total assistance, ambulates up and down fewer than 4 stairs Comprehension FIM: 6 - Modified independence - only mild difficulty understaing complex/abstract information, no prompting required Expression FIM: 7 - Complete independence - Able to express complex/abstract ideas clearly and fluently Social Interaction FIM: 6 - Modified independence - Able to interact and may require medication for control Problem Solving FIM: 6 - Modified independence - Able to recognize problems with only mild difficulty, makes appropriate decisions, initiates and carries out a sequence of steps to solve complex problems, no prompting Memory FIM: 5 - Supervision - Able to recognize people frequently encountered, remembers daily routines, responds to requests of others requiring prompting only under stressful or unfamiliar conditions, no more than 10% of time Associated attestation - Ruth Allen MD - 02/02/2018 3:23 PM CDT I personally led the interdisciplinary team meeting and concur with all decisions made by the interdisciplinary team. Ruth Allen MD * Case Mgmt DC Plan - Hakeem Escalona - 01/31/2018 4:17 PM CDT Formatting of this note may be different from the original. Case Management Progress Note NAME:Beata Kaiser : AGE: 52 y.o. ADMISSION DATE: 01/14/2018 DAYS ADMITTED: LOS: 17 days Todays Date: 01/31/2018 Plan SW following for DCP. Interventions ? Support Support: Pt/Family Updates re:POC or DC Plan, Counseling for Adaptation to Illness SW contacted by Emi and Herve with [facility] [phone] attempting to coordinate start of Hyperbaric treatments today 01/31 at 3:30. MICKI confirmed start of treatment today with rehab resident and transport was scheduled for 3 pm. Tentative plan is to start treatment today, see how pt tolerates, and then plan for further treatments. If pt continues treatment, she will either need to be transported daily for 3:30 start time, or be readmitted to acute hospital. MICKI deferred planning to rehab physicians. MICKI later notified that pt's treatment time could be moved to 1:30. MICKI spoke with neonatal intensive care unit nurse, who was agreeable to working with nursing to coordinate transport and pt's wound care appointment. MICKI later contacted by Emi with [facility] stating pt tolerate treatment well and they would like to continue treatments. MICKI requested rehab physician discuss plan with hyperbaric physician. ? Info or Referral Information or Referral to Community Resources: No Needs Identified ? Discharge Planning Discharge Planning: Home Health ? Medication Needs Medication Needs: Medication Prior-Auth ? Financial Financial: No Needs Identified ? Legal Legal: No Needs Identified ? Other Other/None: No needs identified Disposition ? Expected Discharge Date Expected Discharge Date: 02/09/18 ? Transportation Does the patient need discharge transport arranged?: No Transportation Name, Phone and Availability #1: Pt's Marvin [phone] Does the patient use Medicaid Transportation?: No ? Next Level of Care (Acute Psych discharges only) ? Discharge Disposition Durable Medical Equipment No service has been selected for the patient. Destination No service has been selected for the patient. Home Care No service has been selected for the patient. Dialysis/Infusion No service has been selected for the patient. Hakeem Escalona LMSW Phone: [phone] Pager: [phone] * Critical Results - Tamiko Gregg RN - 01/28/2018 3:58 PM CDT Critical result or procedure called (document test and value, and read back): ( +) staph from blood culture in left hand on 01/27 Time MD/STEEL FIXER Notified: 1559 MD/STEEL FIXER Name: Dr Pride MD/STEEL FIXER Response/Orders Given: No new orders at this time. Will let Darlene GRACE know if new orders placed. * Case Mgmt DC Plan - Hakeem Escalona - 01/26/2018 4:35 PM CDT Formatting of this note may be different from the original. Case Management Progress Note NAME:Beata Kaiser : AGE: 52 y.o. ADMISSION DATE: 01/14/2018 DAYS ADMITTED: LOS: 12 days Todays Date: 01/26/2018 Plan Anticipate d/c 02/09 to home with HH vs alternate plan, pending pt's medical status. Interventions ? Support Support: Pt/Family Updates re:POC or DC Plan, Counseling for Adaptation to Illness MICKI reviewed EMR and obtained updates from rehab team conference. MICKI met with pt and pt's to provide update on DCP, including tentative d/c date of 02/09 with recommendations for HH care. Pt reported that Dr. Schneider had just met with her and is potentially recommending hyperbaric therapy. SW agreeable to following for physician recommendations for further interventions for pt's wounds and DCP. If pt returns home from rehab, she prefers [facility]. MICKI has not sent referral yet, pending medical plans. ? Info or Referral Information or Referral to Community Resources: No Needs Identified ? Discharge Planning Discharge Planning: Home Health ? Medication Needs Medication Needs: Medication Prior-Auth ? Financial Financial: No Needs Identified ? Legal Legal: No Needs Identified ? Other Other/None: No needs identified Disposition ? Expected Discharge Date Expected Discharge Date: 02/09/18 ? Transportation Does the patient need discharge transport arranged?: No Transportation Name, Phone and Availability #1: Pt's Marvin [phone] Does the patient use Medicaid Transportation?: No ? Next Level of Care (Acute Psych discharges only) ? Discharge Disposition Durable Medical Equipment No service has been selected for the patient. [facility] Destination No service has been selected for the patient. Home Care No service has been selected for the patient. Dialysis/Infusion No service has been selected for the patient. Hakeem Escalona LMSW Phone: [phone] Pager: [phone] * Rehab Team Conference - Ruth Berger - 01/26/2018 10:51 AM CDT Formatting of this note may be different from the original. Team Conference Note Date of Admission: 01/14/2018 Date of Team Conference: 01/26/2018 Beata Kaiser is a 52 y.o. female. : 1965 MRN# : [id number] Team Conference Attendees: Ruth Allen MD, Attending Physician;Ravi Pride MD, Resident Physician; Hakeem Escalona LMSW, Social Work;William Spann RNpayroll accounting manager; Cherri Kinney PhD, ABPP, Neuropsychology;Halima Miranda PhD, Post Doctoral Fellow, Neuropsychology; Valerie Saravia MA, Horse Trainer, Psychology; Leia Zimmerman RD LD, Clinical Nutrition; Nani Magaña PharmD, Pharmacy; Batool Lyons RN, Nurse Aerial Photogrammetrist; Loreta Benitez RN, Rehab Reflesher; Ruth LLAMAS/Tapan JACOBSON, Crosscutter; Serena Christian FURNITURE REMOVALIST'S ASSISTANT, Speech Therapy;Esteban Montoya OTR, Occupational Therapy; Hedy Pearce DPT, Physical Therapy; Mark Soto RN, Nursing Medical Update: Beata Kaiser is a 52 yo F who presented to [facility] on 12/13/17 for scheduled left hemipelvectomy for chondrosarcoma. Pt became septic with GBS, ID consulted, being treated with ertapenem. Diverting colostomy was placed on due to stool saturating the wound. Wound vac currently in place with MWF changes. Chrondrosarcomas/p hemipelvectomy - Wound Vac changes MWF. Plastic surgery consulted and not planning on taking to OR GBS bacteremia w/ sepsis - ID following, Erta completed /6 Generalized and phantom limb pain - gabapentin 800mg Q6h, oxycontin 10mg BID, oxycodone 20mg Q4h, IV fentanyl with wound vac changes DVT - s/p IVC filter, continue xarelto DM2 - Endocrine consulted, Increase NPH to 30 units SQ qhs with nocturnal tube feeds + Novolog 8 units SQ qhs with nocturnal TFs Lantus 20 units SQ qhs Novolog 12 units SQ TID with meals - post meal dosing Novolog [facility] Nutrition - Current diet: diabeticand nocturnal tube feeds - Nutren 1.5 from 9601-6600 at 75mL/hr through Corpakwith3 protein packs per day, H2O 30mL q4h, albumin and pre-albumin weekly checks NeuroPsych: Patient endorsed mild depressive and no anxiety symptoms. Team Goal: Patient will perform: household mobility, at wheelchair level, Modified independent, Progressing Pt will perform basic care and transfer with: Modified independence, Wheelchair level Discharge Planning Discharge Date: 02/09/18 Living Situation Prior to Admission Living Arrangements Type of Residence: Home, independent Living Arrangements: Spouse/significant other Bathroom Shower / Tub: Tub/Shower Unit How many levels in the residence?: 1 Can patient live on one level if needed?: Yes Does residence have entry and/or side stairs?: Yes (2 entry steps) Assistance needed prior to admit or anticipated on discharge: No Who provides assistance or could if needed?: Pt's Marvin and dtr's Lynn and Mica Are they in good health?: Yes Can support system provide 24/7 care if needed?: Yes Pt lives in a single level home with 2 entry steps. Pt's bathroom has a 3 ft wide door with standard toilet and tub/shower combo. Pt lives with her Marvin, dtrs Lynn (18 yo), Mica (29 yo), and adult son Skyler. 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 Lynn and Mica are DANCE DIRECTOR's and can assist with pt's care. Pt's family can provide consistent support, as needed, and physical assistance. Pt was independent with all ADL's, including working and driving, without device, prior to admission. Pt owns a single point cane. Plan Home with home health OT/PT/Nursing DME Hospital bed, wheelchair/cushion (Numotion to eval 01/27/18), slideboard, ramp Rehabilitation Plan Progress Minimal assistance x1 with second person to stand by for line management for slide board transfers Improved rolling and bridging in bed for repositioning Able to complete dynamic sitting balance during ADLs at edge of bed with supervision only (previously required second person for minimal assistance) Tolerated x40 minutes in wheelchair 5/8 Have obtained [employer] select cushion for trial for wheelchair mobility Barriers/Concerns Pain and discomfort limit tolerance for wheelchair Anxiety can exacerbate pain Currently needing physical assist for all transfers and wheelchair mobility. Needs ramp for home, not currently in place. Has lengthy car ride home, currently not tolerating sitting more than 40 minutes , 1x/day. Anticipate difficulty with car transfer, may need to pursue alternate transport. Plan Work towards standing and squat pivot transfers, identify optimal seating position for increasing out of bed tolerance, bed mobility training, wheelchair mobility, R LE strengthening, sitting balance, core strengthening complain of pain to Left hip, pain managed with medication. Sit up in wheelchair for at least 1 meal / day Initiate slide board transfers with all staff (minimal assistance x2) Encouraged with position changes turns. Encourge patient to participate with colostomy management. Diabetic Education Encourage relaxed breathing techniques Goals Weekly Goals Weekly Bed Mobility Goals: Patient will complete rolling with, Patient will perform sit to supine with, Patient will perform supine to sit with Patient will perform rolling with: Minimum assistance, Progressing Patient will perform sit to supine with: Minimum assistance, Achieved, Stand by assistance, Progressing Patient will perform supine to sit with: Minimum assistance, Achieved, Stand by assistance, Progressing Weekly Transfer Goals: Patient will complete sliding board transfer with, Patient will complete squat pivot transfer with Patient will complete sliding board transfer with: Moderate assistance, Progressing Patient will complete squat pivot transfer with: Maximum assistance, Progressing Weekly Wheelchair Goals: Patient will propel manual wheelchair on level surfaces with, Patient will propel manual wheelchair up and down ramp with Patient will propel manual wheelchair up and down ramp with: Stand by assistance , Progressing Patient will propel manual wheelchair on level surfaces with: Moderate assistance, Progressing Weekly Goals ADL Goals: Bathing, Dressing UE, Dressing LE Patient Will Perform Bathing: Modified Independent, In Wheelchair (at sink) Patient Will Perform UE Dressing: w/ Minimum Assist Patient Will Perform LE Dressing: w/ Moderate Assist Function Transfer Goals: All Function Transfers Pt Will Perform All Functional Transfers: w/ Stand By Assist (for management of lines) Nursing Short Term Goals Bladder Management: No Patient / Caregiver will verbalize signs & symptoms of urinary tract infection and what action to do with: Minimum verbal cues Bowel Management: No Will be able to verbalize dietary regimen that will regulate bowel function with : Minimum verbal cues Will verbalize need to have a bowel movement daily/every other day (for constipation) with: Minimum verbal cues Patient / Caregiver will verbalize knowledge of activity in relation to constipation with: Minimum verbal cues Medication Management: Yes Will verbalize reason for medication with: Minimum verbal / written cues Will verbalize dose and time for medication with: Minimum verbal / written cues Will verbalize side effects of medication with: Moderate verbal / written cues Skin Integrity: Yes Will verbalize optimal skin care routine with: Moderate verbal cues Pain Management: Yes Will verbalize pain level at or between ____ at rest: Not progressing Will verbalize pain level at or between ____ with activity: Not progressing Safety: Yes Will verbalize 2-3 Fall risk factors with: Minimum verbal cues Will demonstrate understanding of mobility precautions with: Minimum verbal cues Will demonstrate understanding of own limitations with: Minimum verbal cues Will verbalize the importance of using call light with: No verbal cues Nutrition: Yes Will demonstrate appropriate nutritional intake with: Moderate verbal cues Functional Pope Measures Eating FIM: 5 - Set up with containers Grooming FIM: 7 - Complete independence Bathing FIM: 4 - Minimal contact assistance, patient performs 75% or more of grooming/bathing/dressing/toileting tasks Dressing - Upper Body FIM: 4 - Minimal contact assistance, patient performs 75% or more of grooming/bathing/dressing/toileting tasks Dressing - Lower Body FIM: 2 - Maximal assistance, patient performs 25-49% of grooming/bathing/dressing/toileting tasks Toileting FIM: (melchor, colostomy) Bladder FIM: 1 - Total assistance, patient expends less than 25% effort ( complete % of assist, if change diapers, total assist) Bowel FIM: 1 - Total assistance, patient expends less than 25% effort (complete % of assist, if change diapers, total assist) Transfers FIM: 1 - Total assistance, two or more people Toilet Transfers FIM: 0 - Activity did not occur - Other (comments) (does not use toilet d/t melchor/ostomy) Shower Transfers FIM: 0 - Activity did not occur - Other (comments) (sponge bath only d/t multiple dressings/wounds) Gait: 0 - Activity did not occur - Unable due to motor control Wheelchair FIM: 1 - Total assistance, patient expends less than 25% effort Stairs FIM: 1 - Total assistance, ambulates up and down fewer than 4 stairs Comprehension FIM: 6 - Modified independence - Extra time Expression FIM: 5 - Standy prompting - Able to express abstract and/or basic information >90% of the time, prompting <10% Social Interaction FIM: 6 - Modified independence - Able to interact in most situations and no prompting required Problem Solving FIM: 5 - Standby prompting - Able to recognize problems, make appropriate decisions, initiates and carries out a sequence of steps to solve routine problems >90% of the time, prompting <10% Memory FIM: 6 - Modified independence - Able to recognize people frequently encountered, remembers daily routines, responds to requests of others with only mild difficulty, no prompting Associated attestation - Ruth Allen MD - 01/26/2018 1:51 PM CDT I personally led the interdisciplinary team meeting and concur with all decisions made by the interdisciplinary team. Ruth Allen MD * Case Mgmt DC Plan - William Spann RN - 01/21/2018 3:07 PM CDT Formatting of this note may be different from the original. Case Management Progress Note NAME:Beata Kaiser : AGE: 52 y.o. ADMISSION DATE: 01/14/2018 DAYS ADMITTED: LOS: 7 days Todays Date: 01/21/2018 Plan DME planning Interventions ? Support Support: Pt/Family Updates re:POC or DC Plan, Counseling for Adaptation to Illness NCM spoke with patient about Discharge Equipment needs [facility] provided pt with W/c ramp list. Pt most likely need W/c and SB at d/c. [facility] will continue to assess and follow for any new Equipment needs before discharge William Spann RN- [phone] ? Info or Referral Information or Referral to Community Resources: No Needs Identified ? Discharge Planning Discharge Planning: Home Health ? Medication Needs Medication Needs: Medication Prior-Auth ? Financial Financial: No Needs Identified ? Legal Legal: No Needs Identified ? Other Other/None: No needs identified Disposition ? Expected Discharge Date Expected Discharge Date: 02/02/18 ? Transportation Does the patient need discharge transport arranged?: No Transportation Name, Phone and Availability #1: Pt's Marvin [phone] Does the patient use Medicaid Transportation?: No ? Next Level of Care (Acute Psych discharges only) ? Discharge Disposition Durable Medical Equipment No service has been selected for the patient. [facility] Destination No service has been selected for the patient. Home Care No service has been selected for the patient. [facility] Dialysis/Infusion No service has been selected for the patient. * Case Mgmt DC Plan - Hakeem Escalona - 01/20/2018 4:50 PM CDT Formatting of this note may be different from the original. Case Management Progress Note NAME:Beata Kaiser : AGE: 52 y.o. ADMISSION DATE: 01/14/2018 DAYS ADMITTED: LOS: 6 days Todays Date: 01/20/2018 Plan Anticipate d/c 02/02 to home with HH, pending pt stability. Interventions ? Support Support: Pt/Family Updates re:POC or DC Plan, Counseling for Adaptation to Illness SW reviewed EMR and obtained updates from rehab team conference. SW met with pt to provide update on DCP, including anticipated d/c date of 02/02 with recommendations for HH, especially due to wound care. Pt reported anxiety about her wound and pain management. SW reassured that physicians are working on a pain management plan and HH agency would be provided with wound care instructions and medication list and schedule. SW advised that pt's would benefit from family training and diabetic education closer to d/c. Pt agreeable. Pt inquired about DME and SW advised that so far therapy has not made final recommendations. SW encouraged pt to start talking with her about installing a ramp over the two entry stairs. Pt agreeable. MICKI notified HARVINDER Spann of pt's questions about DME. ? Info or Referral Information or Referral to Community Resources: No Needs Identified ? Discharge Planning Discharge Planning: Home Health ? Medication Needs Medication Needs: Medication Prior-Auth ? Financial Financial: No Needs Identified ? Legal Legal: No Needs Identified ? Other Other/None: No needs identified Disposition ? Expected Discharge Date Expected Discharge Date: 02/02/18 ? Transportation Does the patient need discharge transport arranged?: No Transportation Name, Phone and Availability #1: Pt's Marvin [phone] Does the patient use Medicaid Transportation?: No ? Next Level of Care (Acute Psych discharges only) ? Discharge Disposition Durable Medical Equipment No service has been selected for the patient. Destination No service has been selected for the patient. Home Care No service has been selected for the patient. Dialysis/Infusion No service has been selected for the patient. Hakeem Escalona LMSW Phone: [phone] Pager: [phone] * Rehab Team Conference - Loreta Benitez RN - 01/19/2018 11:30 AM CDT Formatting of this note may be different from the original. Team Conference Note Date of Admission: 01/14/2018 Date of Team Conference: 01/19/2018 Beata Kaiser is a 52 y.o. female. : 1965 MRN# : [id number] Team Conference Attendees: Ruth Allen MD, Attending Physician; Ravi Pride MD, Resident Physician; Hakeem Escalona LMSW, Social Work; William Spann RNpayroll accounting manager; Cherri Kinney PhD, ABPP, Neuropsychology; Leia Zimmerman RD LD, Clinical Nutrition; Nani Magaña PharmD, Pharmacy; Batool Lyons, Nurse Aerial Photogrammetrist , Loreta Benitez RN, Rehab Reflesher; Ruth LLAMAS/Tapan JACOBSON, Crosscutter; Serena Christian FURNITURE REMOVALIST'S ASSISTANT, Speech Therapy; Esteban Montoya OTR, Occupational Therapy; Feli Barrios DPT, Physical Therapy; Valerie Young, Horse Trainer, Christin Mckeon, RN, Nursing Medical Update: Beata Kaiser is a 52 yo F who presented to [facility] on 12/13/17 for scheduled left hemipelvectomy for chondrosarcoma. Pt became septic with GBS, ID consulted, being treated with ertapenem. Diverting colostomy was placed on due to stool saturating the wound. Wound vac currently in place with MWF changes. Chrondrosarcomas/p hemipelvectomy - Wound Vac changes MWF GBS bacteremia w/ sepsis - Ertapenem until 01/23, ID following Generalized and phantom limb pain - gabapentin 800mg Q6h, oxycontin 10mg BID, oxycodone 20mg Q4h, Dilaudid IV with dressing changes DVT - s/p IVC filter, continue xarelto DM2 - glargine 20U QHS, NPH 30U, aspart 8 U tid w/meals Nutrition - Current diet: diabeticand nocturnal tube feeds - Nutren 1.5 from [id number] at 75mL/hr through [employer] protein packs per day, H2O 30mL q4h, albumin and pre-albumin weekly checks NeuroPsych: Patient endorsed depressive and anxiety symptoms. Team Goal: Patient will perform: household mobility, at wheelchair level, Modified independent Pt will perform basic care and transfer with: Modified independence, Wheelchair level Discharge Planning Discharge Date: 02/02/18 Living Situation Prior to Admission Living Arrangements Type of Residence: Home, independent Living Arrangements: Spouse/significant other Bathroom Shower / Tub: Tub/Shower Unit How many levels in the residence?: 1 Can patient live on one level if needed?: Yes Does residence have entry and/or side stairs?: Yes (2 entry steps) Assistance needed prior to admit or anticipated on discharge: No Who provides assistance or could if needed?: Pt's Marvin and dtr's Lynn and Mica Are they in good health?: Yes Can support system provide 24/7 care if needed?: Yes Pt lives in a single level home with 2 entry steps. Pt's bathroom has a 3 ft wide door with standard toilet and tub/shower combo. Pt lives with her Marvin, dtrs Lynn (18 yo), Mica (29 yo), and adult son Skyler. 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 Lynn and Mica are DANCE DIRECTOR's and can assist with pt's care. Pt's family can provide consistent support, as needed, and physical assistance. Pt was independent with all ADL's, including working and driving, without device, prior to admission. Pt owns a single point cane. Plan Home with home health OT/PT DME Slideboard and wheelchair, anticipating ramp Rehabilitation Plan Progress Initiated slide board transfers with minimal assistance x2 - good recall of sequence Improved dynamic sitting balance edge of mat during ADLs Initiated sit<>distribution field engineer parallel bars using draw sheet under pt to assist to stand Barriers/Concerns Poor tolerance for sitting in wheelchair d/t discomfort and difficulty repositioning self Increased back pain impacting transfers and bed mobility High anxiety. Varying assist 1-2 assistance needed for transfers Difficulty with weight shift and pressure reliefs NWB LLE. Chronic pain in back. Wound vac machine Plan sit to stand at high mat or in parallel bars, slideboard transfers for increased independence, standing endurance, progress to stand pivot transfers as able Pain in mid to lower back rated 6/10. Oxycodone 20mg given. Wound vac at -125mm. Sit up in wheelchair for at least 1 meal / day Initiate slide board transfers with all staff (minimal assistance x2) Melchor training Encourage participation in managing colostomy Diabetic education and insulin administration Monitor mood Goals Weekly Goals Weekly Bed Mobility Goals: Patient will complete rolling with, Patient will perform sit to supine with, Patient will perform supine to sit with Patient will perform rolling with: Minimum assistance Patient will perform sit to supine with: Minimum assistance Patient will perform supine to sit with: Minimum assistance Weekly Transfer Goals: Patient will complete sliding board transfer with, Patient will complete squat pivot transfer with Patient will complete sliding board transfer with: Moderate assistance Patient will complete squat pivot transfer with: Maximum assistance Weekly Wheelchair Goals: Patient will propel manual wheelchair on level surfaces with, Patient will propel manual wheelchair up and down ramp with Patient will propel manual wheelchair up and down ramp with: Stand by assistance Patient will propel manual wheelchair on level surfaces with: Moderate assistance Weekly Goals ADL Goals: Bathing, Dressing UE, Dressing LE Patient Will Perform Bathing: w/ Minimum Assist Patient Will Perform UE Dressing: w/ Minimum Assist Patient Will Perform LE Dressing: w/ Moderate Assist Function Transfer Goals: All Function Transfers Pt Will Perform All Functional Transfers: Maximum Assist Nursing Short Term Goals Bladder Management: Yes Patient / Caregiver will verbalize signs & symptoms of urinary tract infection and what action to do with: Minimum verbal cues, Progressing Bowel Management: Yes Will be able to verbalize dietary regimen that will regulate bowel function with : Moderate verbal cues, Progressing Will verbalize need to have a bowel movement daily/every other day (for constipation) with: Minimum verbal cues, Progressing Patient / Caregiver will verbalize knowledge of activity in relation to constipation with: Minimum verbal cues, Progressing Medication Management: Yes Will verbalize reason for medication with: Minimum verbal / written cues, Progressing Will verbalize dose and time for medication with: Minimum verbal / written cues , Progressing Will verbalize side effects of medication with: Moderate verbal / written cues, Progressing Skin Integrity: Yes Will verbalize optimal skin care routine with: Minimum verbal cues, Progressing Pain Management: Yes Will verbalize pain level at or between ____ at rest: 1-3, Progressing Will verbalize pain level at or between ____ with activity: 4-6, Progressing Safety: Yes Will verbalize 2-3 Fall risk factors with: Minimum verbal cues, Progressing Will demonstrate understanding of mobility precautions with: Minimum verbal cues , Progressing Will demonstrate understanding of own limitations with: Minimum verbal cues, Progressing Will verbalize the importance of using call light with: No verbal cues, Progressing Nutrition: Yes Will demonstrate appropriate nutritional intake with: Minimum verbal cues, Progressing Functional Pope Measures Eating FIM: 1 - Total assistance, tube feeding for nutrition and/or hydration Grooming FIM: 3 - Moderate assistance, patient performs 50-74% or more of grooming/bathing/dressing/toileting tasks Bathing FIM: 3 - Moderate assistance, patient performs 50-74% or more of grooming/bathing/dressing/toileting tasks Dressing - Upper Body FIM: 0 - Activity did not occur - Other (comment) Dressing - Lower Body FIM: 2 - Maximal assistance, patient performs 25-49% of grooming/bathing/dressing/toileting tasks Toileting FIM: 1 - Total assistance, patient performs less than 25% of grooming/ bathing/dressing/toileting tasks Bladder FIM: 1 - Total assistance, patient expends less than 25% effort ( complete % of assist, if change diapers, total assist) Bowel FIM: 1 - Total assistance, patient expends less than 25% effort (complete % of assist, if change diapers, total assist) Transfers FIM: 1 - Total assistance, two or more people Toilet Transfers FIM: 0 - Activity did not occur - Other (comments) (colostomy and melchor) Shower Transfers FIM: 0 - Activity did not occur - Other (comments) (sponge bath only) Gait: 0 - Activity did not occur - Unable due to motor control Wheelchair FIM: 2 - Maximal assistance Stairs FIM: 0 - Activity did not occur - Unable due to motor control Comprehension FIM: 6 - Modified independence - Extra time Expression FIM: 5 - Standy prompting - Able to express abstract and/or basic information >90% of the time, prompting <10% Social Interaction FIM: 6 - Modified independence - Able to interact in most situations and no prompting required Problem Solving FIM: 5 - Standby prompting - Able to recognize problems, make appropriate decisions, initiates and carries out a sequence of steps to solve routine problems >90% of the time, prompting <10% Memory FIM: 6 - Modified independence - Able to recognize people frequently encountered, remembers daily routines, responds to requests of others with only mild difficulty, no prompting Associated attestation - Ruth Allen MD - 01/19/2018 1:26 PM CDT I personally led the interdisciplinary team meeting and concur with all decisions made by the interdisciplinary team. uRth Allen MD * Case Mgmt DC Plan - Hakeem Escalona - 01/18/2018 12:51 PM CDT Case Management Admission Assessment NAME:Beata Kaiser : AGE: 52 y.o. ADMISSION DATE: 01/14/2018 DAYS ADMITTED: LOS: 4 days Todays Date: 01/18/2018 Source of Information: Pt and pt's Marvin Plan Plan: Psychosocial Assessment, Assist PRN with /NCM Services, Discharge Planning for Home Anticipated Patient Address/Phone [address] [place] [phone] (home) Emergency Contact Extended Emergency Contact Information Primary Emergency Contact: Marvin Kaiser [facility] Relation: Spouse Secondary Emergency Contact: Lynn Kaiser [facility] Relation: Daughter Healthcare Directive Healthcare Directive: No, patient does not have a healthcare directive Would patient like to fill out a (a new) Healthcare Directive?: No, patient declined Transportation Does the patient need discharge transport arranged?: No Transportation Name, Phone and Availability #1: Pt's Marvin [phone] Does the patient use Medicaid Transportation?: No Expected Discharge Date Expected Discharge Date: 01/29/18 Living Situation Prior to Admission ? Living Arrangements Type of Residence: Home, independent Living Arrangements: Spouse/significant other Bathroom Shower / Tub: Tub/Shower Unit How many levels in the residence?: 1 Can patient live on one level if needed?: Yes Does residence have entry and/or side stairs?: Yes (2 entry steps) Assistance needed prior to admit or anticipated on discharge: No Who provides assistance or could if needed?: Pt's Marvin and dtr's Lynn and Mica Are they in good health?: Yes Can support system provide 24/7 care if needed?: Yes Pt lives in a single level home with 2 entry steps. Pt's bathroom has a 3 ft wide door with standard toilet and tub/shower combo. Pt lives with her Marvin, dtrs Lynn (18 yo), Mica (29 yo), and adult son Skyler. 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 Lynn and Mica are DANCE DIRECTOR's and can assist with pt's care. Pt's family can provide consistent support, as needed, and physical assistance. Pt was independent with all ADL's, including working and driving, without device, prior to admission. Pt owns a single point cane. ? Level of Function Prior level of function: Independent ? Cognitive Abilities Cognitive Abilities: Alert and Oriented Financial Resources ? Coverage Primary Insurance: Commercial insurance Secondary Insurance: No insurance Additional Coverage: RX ? Source of Income Source Of Income: Employed ? Financial Assistance Needed? None Psychosocial Needs ? Mental Health Mental Health History: No ? Substance Use History Substance Use History Screen: No ? Other None Current/Previous Services ? PCP Della Cuellar, , Pt reports seeing her PCP about 2 months ago. ? Pharmacy [facility] [address] [place] [address] [address] [facility] [id number] ? Durable Medical Equipment Durable Medical Equipment at home: Single Point Cane ? Home Health Receiving home health: No ? Hemodialysis or Peritoneal Dialysis Undergoing hemodialysis or peritoneal dialysis: No ? Tube/Enteral Feeds Receive tube/enteral feeds: No ? Infusion Receive infusions: No ? Private Duty Private duty help used: No ? Home and Community Based Services Home and community based services: No ? Fareed White Fareed White: No ? Hospice Hospice: No ? Outpatient Therapy PT: In the past Name of rehab location/group: [facility] Would patient return for future services?: Yes (Pt concerned [facility] doesn't treat amputees) OT: No FURNITURE REMOVALIST'S ASSISTANT: No ? Correction Facility/Long Term SNF: No NH: No ? Inpatient Rehab IPR: No ? Long-Term Acute Care Hospital LTACH: No ? Acute Hospital Stay Acute Hospital Stay: Yes Was patient's stay within the last 30 days?: Yes When did patient receive care?: December 2017 Name of hospital: [facility] Hakeem EscalonaPOPPY Phone: [phone] Pager: [phone] in this encounter Plan of Treatment Date Type Specialty Care Team Description 03/01/2018 Procedure Pass Cardiothoracic Surgery Name Priority Associated Diagnoses Date/Time TRANSFUSE RBC'S NON-BLEEDING PT Routine 01/28/2018 2:31 PM CDT TRANSFUSE RBC'S NON-BLEEDING PT Routine 02/10/2018 7:29 PM CDT TRANSFUSE RBC'S NON-BLEEDING PT Routine 02/10/2018 7:29 PM CDT CULTURE-BLOOD W/SENSITIVITY STAT 03/01/2018 12:56 AM CDT CULTURE-BLOOD W/SENSITIVITY STAT 03/01/2018 1:03 AM CDT as of this encounter Procedures Procedure Name Priority Date/Time Associated Diagnosis Comments CONSULT IV THERAPY TEAM STAT 03/02/2018 8:24 AM CDT CONSULT IV THERAPY TEAM Routine 01/21/2018 5:01 PM CDT in this encounter Results * POC GLUCOSE (03/02/2018 11:43 AM) Component Value Ref Range Glucose, POC 150 (H) 70 - 100 MG/DL Specimen Performing Laboratory [facility] [address] [place] [address] * BASIC METABOLIC PANEL CELLULAR THERAPEUTICS (03/02/2018 8:15 AM) Component Value Ref Range Sodium 137 137 [...] Pharmacist for questions. Specimen Performing Laboratory Blood [facility] [address] [place] [address] * CBC CELLULAR THERAPEUTICS (03/02/2018 8:15 AM) Component Value Ref Range White Blood Cells [...] - 11 FL Specimen Performing Laboratory Blood [facility] [address] [place] [address] * POC GLUCOSE (03/02/2018 7:05 AM) Component Value Ref Range Glucose, POC 99 70 - 100 MG/DL Specimen Performing Laboratory [facility] [address] [place], [place] [id number] * POC GLUCOSE (03/01/2018 9:13 PM) Component Value Ref Range Glucose, POC 132 (H) 70 - 100 MG/DL Specimen Performing Laboratory [facility] [address] [place] [address] * LIVER FUNCTION PANEL (03/01/2018 8:07 PM) Component Value Ref Range Total Bilirubin 0.3 0.3 - 1.2 MG/DL Bilirubin, Direct <0.1 <0.4 MG/DL Albumin 2.3 (L) 3.5 - 5.0 G/DL Alk Phosphatase 110 25 - 110 U/L AST (SGOT) 47 (H) 7 - 40 U/L ALT (SGPT) 26 7 - 56 U/L Total Protein 5.7 (L) 6.0 - 8.0 G/DL Specimen Performing Laboratory [facility] [address] [place] [address] * VANCOMYCIN TROUGH (03/01/2018 8:07 PM) Component Value Ref Range Vancomycin Trough 17.3 10.0 - 20.0 MCG/ML Specimen Performing Laboratory Blood, venous - Blood [facility] [address] [place], [place] [id number] * POC GLUCOSE (03/01/2018 5:18 PM) Component Value Ref Range Glucose, POC 109 (H) 70 - 100 MG/DL Specimen Performing Laboratory [facility] [address] [place] [address] * POC GLUCOSE (03/01/2018 3:17 PM) Component Value Ref Range Glucose, POC 100 70 - 100 MG/DL Specimen Performing Laboratory [address] [address] * POC GLUCOSE (03/01/2018 1:20 PM) Component Value Ref Range Glucose, POC 114 (H) 70 - 100 MG/DL Specimen Performing Laboratory [facility] [address] [place] [address] * POC GLUCOSE (03/01/2018 11:14 AM) Component Value Ref Range Glucose, POC 145 (H) 70 - 100 MG/DL Specimen Performing Laboratory [address] [address] * POC GLUCOSE (03/01/2018 6:58 AM) Component Value Ref Range Glucose, POC 94 70 - 100 MG/DL Specimen Performing Laboratory [facility] [address] [place] [address] * POC GLUCOSE (02/28/2018 8:19 PM) Component Value Ref Range Glucose, POC 78 70 - 100 MG/DL Specimen Performing Laboratory [address] [address] * POC GLUCOSE (02/28/2018 4:59 PM) Component Value Ref Range Glucose, POC 110 (H) 70 - 100 MG/DL Specimen Performing Laboratory [address] [address] * POC GLUCOSE (02/28/2018 3:50 PM) Component Value Ref Range Glucose, POC 103 (H) 70 - 100 MG/DL Specimen Performing Laboratory [facility] [address] [place] [address] * POC GLUCOSE (02/28/2018 1:51 PM) Component Value Ref Range Glucose, POC 104 (H) 70 - 100 MG/DL Specimen Performing Laboratory [address] [address] * POC GLUCOSE (02/28/2018 11:51 AM) Component Value Ref Range Glucose, POC 126 (H) 70 - 100 MG/DL Specimen Performing Laboratory [facility] [address] [place] [address] * BASIC METABOLIC PANEL CELLULAR THERAPEUTICS (02/28/2018 8:08 AM) Component Value Ref Range Sodium 137 137 - 147 MMOL/L Potassium 4.4 3.5 - 5.1 MMOL/L Chloride 103 98 - 110 MMOL/L CO2 25 21 - 30 MMOL/L Anion Gap 9 3 - 12 Glucose 108 (H) 70 - 100 MG/DL Blood Urea Nitrogen 11 7 - 25 MG/DL Creatinine 0.92 0.4 - 1.00 MG/DL Calcium 8.5 8.5 - 10.6 MG/DL eGFR Non >60 [...] Specimen Performing Laboratory [facility] [address] [place] [address] * PREALBUMIN (02/28/2018 8:08 AM) Component Value Ref Range Prealbumin 7.0 (L) 17 - 34 MG/DL Specimen Performing Laboratory [facility] [address] [place] [address] * CBC CELLULAR THERAPEUTICS (02/28/2018 8:08 AM) Component Value Ref Range White Blood Cells 9.3 4.5 - 11.0 K/UL RBC 3.11 (L) 4.0 - 5.0 M/UL Hemoglobin 7.9 (L) 12.0 - 15.0 GM/DL Hematocrit 24.4 (L) 36 - 45 % MCV 78.4 (L) 80 - 100 FL MCH 25.5 (L) 26 - 34 PG MCHC 32.5 32.0 - 36.0 G/DL RDW 21.7 (H) 11 - 15 % Platelet Count 528 (H) 150 - 400 K/UL MPV 6.7 (L) 7 - 11 FL Specimen Performing Laboratory [facility] [address] [place] [address] * POC GLUCOSE (02/28/2018 7:19 AM) Component Value Ref Range Glucose, POC 95 70 - 100 MG/DL Specimen Performing Laboratory [facility] [address] [place] [address] * POC GLUCOSE (02/27/2018 8:31 PM) Component Value Ref Range Glucose, POC 127 (H) 70 - 100 MG/DL Specimen Performing Laboratory [facility] [address] [place] [address] * POC GLUCOSE (02/27/2018 4:55 PM) Component Value Ref Range Glucose, POC 124 (H) 70 - 100 MG/DL Specimen Performing Laboratory [facility] [address] [place] [address] * TRANSFUSE RBC'S NON-BLEEDING PT (02/27/2018 2:00 PM) Specimen Performing Laboratory Blood * POC GLUCOSE (02/27/2018 12:09 PM) Component Value Ref Range Glucose, POC 201 (H) 70 - 100 MG/DL Specimen Performing Laboratory [facility] [address] [place] [address] * GRAM STAIN (02/27/2018 10:12 AM) Component Value Ref Range Battery Name GRAM STAIN Specimen Description SWAB Special Requests NONE Gram Stain RARE NEUTROPHILS FEW GRAM NEGATIVE RODS FEW GRAM POSITIVE COCCI Report Status FINAL 02/27/2018 Specimen Performing Laboratory Swab [facility] [address] [place] [address] * CULTURE-WOUND/TISSUE/FLUID(AEROBIC ONLY)W/SENSITIVITY (02/27/2018 10:12 AM) Component Value Ref Range Battery Name ROUTINE CULTURE Specimen Description SWAB WD Special Requests NONE Direct Gram Stain RARE NEUTROPHILS FEW GRAM NEGATIVE RODS FEW GRAM POSITIVE COCCI Culture Heavy growth ENTEROBACTER CLOACAE,CARBAPENEM RESISTANT Heavy growth ACINETOBACTER BAUMANNII Light growth ESCHERICHIA COLI Light growth METHICILLIN RESISTANT STAPHYLOCOCCUS AUREUS notified Olena Phelan//KA (A) Report Status FINAL 03/03/2018 Organism ID Heavy growth ACINETOBACTER BAUMANNII Organism ID Light growth ESCHERICHIA COLI Organism ID Light growth METHICILLIN RESISTANT STAPHYLOCOCCUS AUREUS Organism ID Heavy growth ENTEROBACTER CLOACAE,CARBAPENEM RESISTANT Organism ID Heavy growth ENTEROBACTER CLOACAE,CARBAPENEM RESISTANT Organism ID Light growth METHICILLIN RESISTANT STAPHYLOCOCCUS AUREUS Specimen Performing Laboratory Swab [facility] [address] [place] [address] Organism Antibiotic Method Susceptibility Heavy growth Cefepime [...] ARDON GRAF ARDON resistant staphylococcus aureus * CULTURE-URINE W/SENSITIVITY (02/27/2018 7:45 AM) Component Value Ref Range Battery Name URINE CULTURE Specimen Description URINE Special Requests NONE Culture <100,000 organisms/ml ESCHERICHIA COLI <10,000 organisms/ml CONTAMINANT (A) Report Status FINAL 03/02/2018 Organism ID <100,000 organisms/ml ESCHERICHIA COLI Specimen Performing Laboratory Urine [facility] [address] [place] [address] Organism Antibiotic Method Susceptibility <100,000 organisms/ml Ampicillin DAI (MCG/ML) <=4 SUSCEPTIBLE: escherichia coli INTERPRETATION Susceptible <100,000 organisms/ml Amoxicil/Clav Acid DAI (MCG/ML) <=4/2 SUSCEPTIBLE: escherichia coli INTERPRETATION Susceptible <100,000 organisms/ml Levofloxacin DAI (MCG/ML) <=1 SUSCEPTIBLE: escherichia coli INTERPRETATION Susceptible <100,000 organisms/ml Nitrofurantoin ADI (MCG/ML) <=16 SUSCEPTIBLE: escherichia coli INTERPRETATION Susceptible [...] escherichia coli INTERPRETATION Susceptible <100,000 organisms/ml Ceftriaxone DIA (MCG/ML) <=1 SUSCEPTIBLE: escherichia coli INTERPRETATION Susceptible <100,000 organisms/ml Method DAI (MCG/ML) DAI (MCG/ML) escherichia coli INTERPRETATION INTERPRETATION * TYPE & CROSSMATCH (02/27/2018 7:45 AM) Component Value Ref Range Units Ordered 1 Crossmatch Expires 03/02/2018 Record Check FOUND ABO/RH(D) A POS Antibody Screen NEG Electronic Crossmatch YES Unit Number [id number] Blood Component Type RBC,ADSOL,LEUKO REDUCED Unit Division 0 Status OF Unit TRANSFUSED Transfusion Status OK TO TRANSFUSE Crossmatch Result COMPATIBLE,ELECTRONIC Specimen Performing Laboratory Blood [facility] [address] [place] [address] * UA REFLEX CULTURE LABEL (02/27/2018 7:45 AM) Component Value Ref Range UA Reflex Culture LAB LABEL Specimen Performing Laboratory Urine [facility] [address] [place] [address] * URINALYSIS MICROSCOPIC REFLEX TO CULTURE (02/27/2018 7:45 AM) Component Value Ref Range WBCs,UA 10-20 0 - 2 /HPF RBCs,UA 0-2 0 - 3 /HPF Comment,UA Urine submitted for reflex culture if criteria are met:WBC>10, positive nitrite and/or >=1+ leukocyte esterase. If quantity is not sufficient, an addendum will follow. MucousUA TRACE Squamous Epithelial Cells 0-2 0 - 5 Hyaline Cast 0-2 Specimen Performing Laboratory Urine [facility] [address] [place] [address] * URINALYSIS DIPSTICK REFLEX TO CULTURE (02/27/2018 7:45 AM) Component Value Ref Range Color,UA YELLOW Turbidity,UA CLEAR CLEAR-CLEAR Specific [place]-Urine 1.018 1.003 - 1.035 pH,UA 5.0 5.0 - 8.0 Protein,UA NEG NEG-NEG Glucose,UA NEG NEG-NEG Ketones,UA NEG NEG-NEG Bilirubin,UA NEG NEG-NEG Blood,UA NEG NEG-NEG Urobilinogen,UA NORMAL NORM-NORMAL Nitrite,UA NEG NEG-NEG Leukocytes,UA 1+ (A) NEG-NEG Urine Ascorbic Acid, UA NEG NEG-NEG Specimen Performing Laboratory [facility] [address] [place] [address] * POC GLUCOSE (02/27/2018 7:12 AM) Component Value Ref Range Glucose, POC 124 (H) 70 - 100 MG/DL Specimen Performing Laboratory [facility] [address] [place] [address] * LACTIC ACID (BG - RAPID LACTATE) (02/27/2018 4:50 AM) Component Value Ref Range Lactic Acid,BG 1.0 0.5 - 2.0 MMOL/L Specimen Performing Laboratory [facility] [address] [place] [address] * CBC AND DIFF (02/27/2018 4:50 AM) Component Value Ref Range White Blood Cells [...] K/UL Specimen Performing Laboratory [facility] [address] [place] [address] * LACTIC ACID (BG - RAPID LACTATE) (02/26/2018 10:07 PM) Component Value Ref Range Lactic Acid,BG 3.6 (H) 0.5 - 2.0 MMOL/L Specimen Performing Laboratory [facility] [address] [place] [address] * POC GLUCOSE (02/26/2018 8:46 PM) Component Value Ref Range Glucose, POC 156 (H) 70 - 100 MG/DL Specimen Performing Laboratory [facility] [address] [place] [address] * LACTIC ACID (BG - RAPID LACTATE) (02/26/2018 6:30 PM) Component Value Ref Range Lactic Acid,BG 3.6 (H) 0.5 - 2.0 MMOL/L Specimen Performing Laboratory [facility] [address] [place] [address] * CHEST SINGLE VIEW (02/26/2018 6:04 PM) Specimen Performing Laboratory [facility] RAD RESULTS [...] AM. * CULTURE-BLOOD W/SENSITIVITY (02/26/2018 5:48 PM) Component Value Ref Range Battery Name BLOOD CULTURE Specimen Description BLOOD NO SITE INDICATED Special Requests NONE Culture NO GROWTH 5 DAYS Report Status FINAL 03/04/2018 Specimen Performing Laboratory Blood [facility] [address] [place] [address] * CULTURE-BLOOD W/SENSITIVITY (02/26/2018 5:40 PM) Component Value Ref Range Battery Name BLOOD CULTURE Specimen Description BLOOD NO SITE INDICATED Special Requests NONE Culture NO GROWTH 5 DAYS Report Status FINAL 03/04/2018 Specimen Performing Laboratory Blood [facility] [address] [place] [address] * POC GLUCOSE (02/26/2018 4:55 PM) Component Value Ref Range Glucose, POC 202 (H) 70 - 100 MG/DL Specimen Performing Laboratory [facility] [address] [place] [address] * POC GLUCOSE (02/26/2018 11:59 AM) Component Value Ref Range Glucose, POC 163 (H) 70 - 100 MG/DL Specimen Performing Laboratory [facility] [address] [place] [address] * POC GLUCOSE (02/26/2018 6:59 AM) Component Value Ref Range Glucose, POC 101 (H) 70 - 100 MG/DL Specimen Performing Laboratory [facility] [address] [place] [address] * POC GLUCOSE (02/25/2018 9:12 PM) Component Value Ref Range Glucose, POC 144 (H) 70 - 100 MG/DL Specimen Performing Laboratory [facility] [address] [place] [address] * POC GLUCOSE (02/25/2018 5:41 PM) Component Value Ref Range Glucose, POC 143 (H) 70 - 100 MG/DL Specimen Performing Laboratory [facility] [address] [place] [address] * CT CHEST W CONTRAST (02/25/2018 4:46 [...] most compatible with minimal atypical pneumonitis. 3. Lwnr-um-urzdzyob atelectasis in the right lung base. Finalized [...] are several unchanged tiny pulmonary nodules. A order entry representative nodule along the right minor fissure [...] are several unchanged tiny pulmonary nodules. A order entry representative nodule along the right minor fissure [...] most compatible with minimal atypical pneumonitis. 3. Ytev-tc-hhbsucch atelectasis in the right lung base. Finalized by Boubacar Loomis M.D. on 02/25/2018 4:52 PM. Dictated by Boubacar Loomis M.D. on 02/25/2018 4:41 PM. * POC GLUCOSE (02/25/2018 3:15 PM) Component Value Ref Range Glucose, POC 138 (H) 70 - 100 MG/DL Specimen Performing Laboratory [facility] [address] [place] [address] * POC GLUCOSE (02/25/2018 1:27 PM) Component Value Ref Range Glucose, POC 157 (H) 70 - 100 MG/DL Specimen Performing Laboratory [facility] [address] [place] [address] * POC GLUCOSE (02/25/2018 11:47 AM) Component Value Ref Range Glucose, POC 205 (H) 70 - 100 MG/DL Specimen Performing Laboratory [facility] [address] [place] [address] * BASIC METABOLIC PANEL CELLULAR THERAPEUTICS (02/25/2018 8:52 AM) Component Value Ref Range Sodium 138 137 - 147 MMOL/L Potassium 4.1 3.5 - 5.1 MMOL/L Chloride 102 98 - 110 MMOL/L CO2 24 21 - 30 MMOL/L Anion Gap 12 3 - 12 Glucose 134 (H) 70 - 100 MG/DL Blood Urea Nitrogen 13 7 - 25 MG/DL Creatinine 0.89 0.4 - 1.00 MG/DL Calcium 8.8 8.5 - 10.6 MG/DL eGFR Non >60 [...] Specimen Performing Laboratory [facility] [address] [place] [address] * CBC CELLULAR THERAPEUTICS (02/25/2018 8:52 AM) Component Value Ref Range White Blood Cells 9.4 4.5 - 11.0 K/UL RBC 3.11 (L) 4.0 - 5.0 M/UL Hemoglobin 8.0 (L) 12.0 - 15.0 GM/DL Hematocrit 24.2 (L) 36 - 45 % MCV 77.8 (L) 80 - 100 FL MCH 25.7 (L) 26 - 34 PG MCHC 33.0 32.0 - 36.0 G/DL RDW 20.9 (H) 11 - 15 % Platelet Count 579 (H) 150 - 400 K/UL MPV 6.6 (L) 7 - 11 FL Specimen Performing Laboratory Blood [facility] [address] [place] [address] * POC GLUCOSE (02/25/2018 6:51 AM) Component Value Ref Range Glucose, POC 98 70 - 100 MG/DL Specimen Performing Laboratory [address] [address] * POC GLUCOSE (02/25/2018 1:10 AM) Component Value Ref Range Glucose, POC 122 (H) 70 - 100 MG/DL Specimen Performing Laboratory [facility] [address] [place] [address] * POC GLUCOSE (02/24/2018 8:54 PM) Component Value Ref Range Glucose, POC 105 (H) 70 - 100 MG/DL Specimen Performing Laboratory [facility] [address] [place] [address] * POC GLUCOSE (02/24/2018 4:51 PM) Component Value Ref Range Glucose, POC 82 70 - 100 MG/DL Specimen Performing Laboratory [address] [address] * POC GLUCOSE (02/24/2018 1:24 PM) Component Value Ref Range Glucose, POC 117 (H) 70 - 100 MG/DL Specimen Performing Laboratory [address] [address] * POC GLUCOSE (02/24/2018 11:35 AM) Component Value Ref Range Glucose, POC 119 (H) 70 - 100 MG/DL Specimen Performing Laboratory [address] [address] * POC GLUCOSE (02/24/2018 7:45 AM) Component Value Ref Range Glucose, POC 110 (H) 70 - 100 MG/DL Specimen Performing Laboratory [facility] [address] [place] [address] * POC GLUCOSE (02/24/2018 7:07 AM) Component Value Ref Range Glucose, POC 70 70 - 100 MG/DL Specimen Performing Laboratory [facility] [address] [place] [address] * POC GLUCOSE (02/23/2018 9:28 PM) Component Value Ref Range Glucose, POC 93 70 - 100 MG/DL Specimen Performing Laboratory [facility] [address] [place] [address] * POC GLUCOSE (02/23/2018 5:07 PM) Component Value Ref Range Glucose, POC 146 (H) 70 - 100 MG/DL Specimen Performing Laboratory [facility] [address] [place] [address] * POC GLUCOSE (02/23/2018 5:06 PM) Component Value Ref Range Glucose, POC 298 (H) 70 - 100 MG/DL Specimen Performing Laboratory [facility] [address] [place] [address] * POC GLUCOSE (02/23/2018 3:15 PM) Component Value Ref Range Glucose, POC 154 (H) 70 - 100 MG/DL Specimen Performing Laboratory [facility] [address] [place] [address] * POC GLUCOSE (02/23/2018 1:14 PM) Component Value Ref Range Glucose, POC 244 (H) 70 - 100 MG/DL Specimen Performing Laboratory [facility] [address] [place] [address] * POC GLUCOSE (02/23/2018 11:49 AM) Component Value Ref Range Glucose, POC 291 (H) 70 - 100 MG/DL Specimen Performing Laboratory [facility] [address] [place], [place] [address] * BASIC METABOLIC PANEL CELLULAR THERAPEUTICS (02/23/2018 8:00 AM) Component Value Ref Range Sodium 138 137 - 147 MMOL/L Potassium 4.1 3.5 - 5.1 MMOL/L Chloride 103 98 - 110 MMOL/L CO2 27 21 - 30 MMOL/L Anion Gap 8 3 - 12 Glucose 149 (H) 70 - 100 MG/DL Blood Urea Nitrogen 11 7 - 25 MG/DL Creatinine 0.79 0.4 - 1.00 MG/DL Calcium 8.6 8.5 [...] Pharmacist for questions. Specimen Performing Laboratory Blood [facility] [address] [place], [place] [id number] * CBC CELLULAR THERAPEUTICS (02/23/2018 8:00 AM) Component Value Ref Range White Blood Cells 10.0 4.5 - 11.0 K/UL RBC 3.04 (L) 4.0 - 5.0 M/UL Hemoglobin 7.7 (L) 12.0 - 15.0 GM/DL Hematocrit 24.0 (L) 36 - 45 % MCV 78.8 (L) 80 - 100 FL MCH 25.2 (L) 26 - 34 PG MCHC 32.1 32.0 - 36.0 G/DL RDW 20.7 (H) 11 - 15 % Platelet Count 567 (H) 150 - 400 K/UL MPV 6.9 (L) 7 - 11 FL Specimen Performing Laboratory Blood [facility] [address] [place] [address] * POC GLUCOSE (02/23/2018 6:51 AM) Component Value Ref Range Glucose, POC 86 70 - 100 MG/DL Specimen Performing Laboratory [address] [address] * POC GLUCOSE (02/22/2018 9:29 PM) Component Value Ref Range Glucose, POC 149 (H) 70 - 100 MG/DL Specimen Performing Laboratory [address] [address] * POC GLUCOSE (02/22/2018 4:54 PM) Component Value Ref Range Glucose, POC 110 (H) 70 - 100 MG/DL Specimen Performing Laboratory [address] [address] * POC GLUCOSE (02/22/2018 3:21 PM) Component Value Ref Range Glucose, POC 132 (H) 70 - 100 MG/DL Specimen Performing Laboratory [address] [address] * POC GLUCOSE (02/22/2018 1:29 PM) Component Value Ref Range Glucose, POC 153 (H) 70 - 100 MG/DL Specimen Performing Laboratory [address] [address] * POC GLUCOSE (02/22/2018 11:00 AM) Component Value Ref Range Glucose, POC 161 (H) 70 - 100 MG/DL Specimen Performing Laboratory [address] [address] * POC GLUCOSE (02/22/2018 7:12 AM) Component Value Ref Range Glucose, POC 162 (H) 70 - 100 MG/DL Specimen Performing Laboratory [address] [address] * POC GLUCOSE (02/21/2018 9:50 PM) Component Value Ref Range Glucose, POC 101 (H) 70 - 100 MG/DL Specimen Performing Laboratory [facility] [address] [place] [address] * POC GLUCOSE (02/21/2018 4:54 PM) Component Value Ref Range Glucose, POC 118 (H) 70 - 100 MG/DL Specimen Performing Laboratory [facility] [address] [place] [address] * POC GLUCOSE (02/21/2018 3:12 PM) Component Value Ref Range Glucose, POC 137 (H) 70 - 100 MG/DL Specimen Performing Laboratory [facility] [address] [place] [address] * POC GLUCOSE (02/21/2018 1:12 PM) Component Value Ref Range Glucose, POC 130 (H) 70 - 100 MG/DL Specimen Performing Laboratory [facility] [address] [place] [address] * POC GLUCOSE (02/21/2018 11:37 AM) Component Value Ref Range Glucose, POC 166 (H) 70 - 100 MG/DL Specimen Performing Laboratory [facility] [address] [place] [address] * BASIC METABOLIC PANEL CELLULAR THERAPEUTICS (02/21/2018 8:07 AM) Component Value Ref Range Sodium 136 (L) 137 - 147 MMOL/L Potassium 4.5 3.5 - 5.1 MMOL/L Chloride 101 98 - 110 MMOL/L CO2 27 21 - 30 MMOL/L Anion Gap 8 3 - 12 Glucose 111 (H) 70 - 100 MG/DL Blood Urea Nitrogen 10 7 - 25 MG/DL Creatinine 0.91 0.4 - 1.00 MG/DL Calcium 8.8 8.5 - 10.6 MG/DL eGFR Non >60 [...] Pharmacist for questions. Specimen Performing Laboratory Blood [facility] [address] [place] [address] * PREALBUMIN (02/21/2018 8:07 AM) Component Value Ref Range Prealbumin 9.0 (L) 17 - 34 MG/DL Specimen Performing Laboratory Blood [facility] [address] [place] [address] * CBC CELLULAR THERAPEUTICS (02/21/2018 8:07 AM) Component Value Ref Range White Blood Cells 11.1 (H) 4.5 - 11.0 K/UL RBC 3.04 (L) 4.0 - 5.0 M/UL Hemoglobin 7.8 (L) 12.0 - 15.0 GM/DL Hematocrit 23.6 (L) 36 - 45 % MCV 77.5 (L) 80 - 100 FL MCH 25.5 (L) 26 - 34 PG MCHC 32.9 32.0 - 36.0 G/DL RDW 21.2 (H) 11 - 15 % Platelet Count 536 (H) 150 - 400 K/UL MPV 6.6 (L) 7 - 11 FL Specimen Performing Laboratory Blood [facility] [address] [place] [address] * POC GLUCOSE (02/21/2018 6:59 AM) Component Value Ref Range Glucose, POC 108 (H) 70 - 100 MG/DL Specimen Performing Laboratory [facility] [address] [place] [address]68 * POC GLUCOSE (02/20/2018 8:46 PM) Component Value Ref Range Glucose, POC 112 (H) 70 - 100 MG/DL Specimen Performing Laboratory [facility] [address] [place] [address]35 * POC GLUCOSE (02/20/2018 4:48 PM) Component Value Ref Range Glucose, POC 160 (H) 70 - 100 MG/DL Specimen Performing Laboratory [facility] [address] [place] [address]697 * POC GLUCOSE (02/20/2018 11:55 AM) Component Value Ref Range Glucose, POC 198 (H) 70 - 100 MG/DL Specimen Performing Laboratory [facility] [address] [place] [address] * POC GLUCOSE (02/20/2018 6:53 AM) Component Value Ref Range Glucose, POC 111 (H) 70 - 100 MG/DL Specimen Performing Laboratory [facility] [address] [place] [address] * POC GLUCOSE (02/19/2018 8:51 PM) Component Value Ref Range Glucose, POC 182 (H) 70 - 100 MG/DL Specimen Performing Laboratory [facility] [address] [place] [address] * POC GLUCOSE (02/19/2018 4:51 PM) Component Value Ref Range Glucose, POC 143 (H) 70 - 100 MG/DL Specimen Performing Laboratory [address] [address] * POC GLUCOSE (02/19/2018 12:03 PM) Component Value Ref Range Glucose, POC 136 (H) 70 - 100 MG/DL Specimen Performing Laboratory [address] [address] * POC GLUCOSE (02/19/2018 7:19 AM) Component Value Ref Range Glucose, POC 99 70 - 100 MG/DL Specimen Performing Laboratory [address] [address] * POC GLUCOSE (02/18/2018 9:04 PM) Component Value Ref Range Glucose, POC 133 (H) 70 - 100 MG/DL Specimen Performing Laboratory [address] [address] * POC GLUCOSE (02/18/2018 8:38 PM) Component Value Ref Range Glucose, POC 156 (H) 70 - 100 MG/DL Specimen Performing Laboratory [address] [address] * POC GLUCOSE (02/18/2018 4:47 PM) Component Value Ref Range Glucose, POC 153 (H) 70 - 100 MG/DL Specimen Performing Laboratory [address] [address] * POC GLUCOSE (02/18/2018 3:24 PM) Component Value Ref Range Glucose, POC 152 (H) 70 - 100 MG/DL Specimen Performing Laboratory [facility] [address] [place] [address] * POC GLUCOSE (02/18/2018 1:23 PM) Component Value Ref Range Glucose, POC 155 (H) 70 - 100 MG/DL Specimen Performing Laboratory [address] [address] * POC GLUCOSE (02/18/2018 11:36 AM) Component Value Ref Range Glucose, POC 148 (H) 70 - 100 MG/DL Specimen Performing Laboratory [address] [address] * POC GLUCOSE (02/18/2018 7:07 AM) Component Value Ref Range Glucose, POC 96 70 - 100 MG/DL Specimen Performing Laboratory MAIN [facility] [address] [place] [address] * BASIC METABOLIC PANEL CELLULAR THERAPEUTICS (02/18/2018 5:45 AM) Component Value Ref Range Sodium 137 137 - 147 MMOL/L Potassium 3.9 3.5 - 5.1 MMOL/L Chloride 101 98 - 110 MMOL/L CO2 28 21 - 30 MMOL/L Anion Gap 8 3 - 12 Glucose 86 70 - 100 MG/DL Blood Urea Nitrogen 12 7 - 25 MG/DL Creatinine 0.75 0.4 - 1.00 MG/DL Calcium 8.8 8.5 - 10.6 MG/DL eGFR Non >60 [...] Specimen Performing Laboratory Blood MAIN LAB [address] [place] [address] * CBC CELLULAR THERAPEUTICS (02/18/2018 5:45 AM) Component Value Ref Range White Blood Cells 9.2 4.5 - 11.0 K/UL RBC 2.81 (L) 4.0 - 5.0 M/UL Hemoglobin 7.1 (L) 12.0 - 15.0 GM/DL Hematocrit 22.0 (L) 36 - 45 % MCV 78.3 (L) 80 - 100 FL MCH 25.3 (L) 26 - 34 PG MCHC 32.3 32.0 - 36.0 G/DL RDW 21.7 (H) 11 - 15 % Platelet Count 465 (H) 150 - 400 K/UL MPV 6.6 (L) 7 - 11 FL Specimen Performing Laboratory Blood MAIN LAB [address] [place] [address] * POC GLUCOSE (02/17/2018 9:15 PM) Component Value Ref Range Glucose, POC 195 (H) 70 - 100 MG/DL Specimen Performing Laboratory MAIN [facility] [address] [place] [address] * POC GLUCOSE (02/17/2018 5:07 PM) Component Value Ref Range Glucose, POC 140 (H) 70 - 100 MG/DL Specimen Performing Laboratory [facility] [address] [place] [address] * POC GLUCOSE (02/17/2018 3:04 PM) Component Value Ref Range Glucose, POC 149 (H) 70 - 100 MG/DL Specimen Performing Laboratory [address] [address] * POC GLUCOSE (02/17/2018 1:05 PM) Component Value Ref Range Glucose, POC 215 (H) 70 - 100 MG/DL Specimen Performing Laboratory [address] [address] * POC GLUCOSE (02/17/2018 11:22 AM) Component Value Ref Range Glucose, POC 147 (H) 70 - 100 MG/DL Specimen Performing Laboratory [address] [address] * POC GLUCOSE (02/17/2018 6:54 AM) Component Value Ref Range Glucose, POC 109 (H) 70 - 100 MG/DL Specimen Performing Laboratory [address] [address] * POC GLUCOSE (02/16/2018 9:29 PM) Component Value Ref Range Glucose, POC 111 (H) 70 - 100 MG/DL Specimen Performing Laboratory [address] [address] * POC GLUCOSE (02/16/2018 5:07 PM) Component Value Ref Range Glucose, POC 89 70 - 100 MG/DL Specimen Performing Laboratory [address] [address] * POC GLUCOSE (02/16/2018 3:10 PM) Component Value Ref Range Glucose, POC 106 (H) 70 - 100 MG/DL Specimen Performing Laboratory [address] [address] * POC GLUCOSE (02/16/2018 1:18 PM) Component Value Ref Range Glucose, POC 119 (H) 70 - 100 MG/DL Specimen Performing Laboratory [facility] [address] [place] [address] * POC GLUCOSE (02/16/2018 11:52 AM) Component Value Ref Range Glucose, POC 189 (H) 70 - 100 MG/DL Specimen Performing Laboratory [facility] [address] [place] [address] * POC GLUCOSE (02/16/2018 6:54 AM) Component Value Ref Range Glucose, POC 90 70 - 100 MG/DL Specimen Performing Laboratory MAIN [facility] [address] [place] [address] * BASIC METABOLIC PANEL CELLULAR THERAPEUTICS (02/16/2018 6:10 AM) Component Value Ref Range Sodium 138 137 - 147 MMOL/L Potassium 4.0 3.5 - 5.1 MMOL/L Chloride 102 98 - 110 MMOL/L CO2 28 21 - 30 MMOL/L Anion Gap 8 3 - 12 Glucose 87 70 - 100 MG/DL Blood Urea Nitrogen 8 7 - 25 MG/DL Creatinine 0.72 0.4 - 1.00 MG/DL Calcium 8.8 8.5 - 10.6 MG/DL eGFR Non >60 [...] Specimen Performing Laboratory Blood [facility]IN [facility] [address] [place] [address] * CBC CELLULAR THERAPEUTICS (02/16/2018 6:10 AM) Component Value Ref Range White Blood Cells 9.7 4.5 - 11.0 K/UL RBC 2.93 (L) 4.0 - 5.0 M/UL Hemoglobin 7.6 (L) 12.0 - 15.0 GM/DL Hematocrit 23.0 (L) 36 - 45 % MCV 78.5 (L) 80 - 100 FL MCH 25.9 (L) 26 - 34 PG MCHC 33.0 32.0 - 36.0 G/DL RDW 21.4 (H) 11 - 15 % Platelet Count 447 (H) 150 - 400 K/UL MPV 6.5 (L) 7 - 11 FL Specimen Performing Laboratory Blood MAIN LAB [address] [place] [address] * POC GLUCOSE (02/15/2018 9:10 PM) Component Value Ref Range Glucose, POC 140 (H) 70 - 100 MG/DL Specimen Performing Laboratory MAIN LAB [address] [place] [address] * POC GLUCOSE (02/15/2018 5:07 PM) Component Value Ref Range Glucose, POC 194 (H) 70 - 100 MG/DL Specimen Performing Laboratory [facility] [address] [place] [address] * POC GLUCOSE (02/15/2018 3:07 PM) Component Value Ref Range Glucose, POC 182 (H) 70 - 100 MG/DL Specimen Performing Laboratory [address] [address] * POC GLUCOSE (02/15/2018 1:08 PM) Component Value Ref Range Glucose, POC 159 (H) 70 - 100 MG/DL Specimen Performing Laboratory [facility] [address] [place] [address] * POC GLUCOSE (02/15/2018 11:58 AM) Component Value Ref Range Glucose, POC 160 (H) 70 - 100 MG/DL Specimen Performing Laboratory [address] [address] * POC GLUCOSE (02/15/2018 6:55 AM) Component Value Ref Range Glucose, POC 121 (H) 70 - 100 MG/DL Specimen Performing Laboratory [facility] [address] [place] [address] * POC GLUCOSE (02/14/2018 9:16 PM) Component Value Ref Range Glucose, POC 129 (H) 70 - 100 MG/DL Specimen Performing Laboratory [facility] [address] [place] [address] * POC GLUCOSE (02/14/2018 4:51 PM) Component Value Ref Range Glucose, POC 86 70 - 100 MG/DL Spec[place] [address] * CBC AND DIFF (02/14/2018 4:32 PM) Component Value Ref Range White Blood Cells 12.0 (H) 4.5 - 11.0 K/UL RBC 3.00 (L) 4.0 - 5.0 M/UL Hemoglobin 7.8 (L) 12.0 - 15.0 GM/DL Hematocrit 23.9 (L) 36 - 45 % MCV 79.6 (L) 80 - 100 FL MCH 25.9 (L) 26 - 34 PG MCHC 32.5 32.0 - 36.0 G/DL RDW 21.4 (H) 11 - 15 % Platelet Count 546 (H) 150 - 400 K/UL MPV 6.6 (L) 7 - 11 FL Neutrophils 77 41 - 77 % Lymphocytes 8 (L) 24 - 44 % Monocytes 10 4 - 12 % Eosinophils 5 0 - 5 % Basophils 0 0 - 2 % Absolute Neutrophil Count 9.30 (H) 1.8 - 7.0 K/UL Absolute Lymph Count 1.00 1.0 - 4.8 K/UL Absolute Monocyte Count 1.20 (H) 0 - 0.80 K/UL Absolute Eosinophil Count 0.60 (H) 0 - 0.45 K/UL Absolute Basophil Count 0.00 0 - 0.20 K/UL Specimen Performing Laboratory Blood MAIN LAB [address] [place] [address] * POC GLUCOSE (02/14/2018 4:08 PM) Component Value Ref Range Glucose, POC 86 70 - 100 MG/DL Specimen Performing Laboratory MAIN LAB [address] [place] [address] * POC GLUCOSE (02/14/2018 12:12 PM) Component Value Ref Range Glucose, POC 150 (H) 70 - 100 MG/DL Specimen Performing Laboratory MAIN LAB [address] [place] [address] * POC GLUCOSE (02/14/2018 6:52 AM) Component Value Ref Range Glucose, POC 93 70 - 100 MG/DL Specimen Performing Laboratory [facility] [address] [place] [address] * BASIC METABOLIC PANEL CELLULAR THERAPEUTICS (02/14/2018 6:30 AM) Component Value Ref Range Sodium 137 137 - 147 MMOL/L Potassium 3.9 3.5 - 5.1 MMOL/L Chloride 102 98 - 110 MMOL/L CO2 29 21 - 30 MMOL/L Anion Gap 6 3 - 12 Glucose 90 70 - 100 MG/DL Blood Urea Nitrogen 9 7 - 25 MG/DL Creatinine 0.67 0.4 - 1.00 MG/DL Calcium 8.9 8.5 - 10.6 MG/DL eGFR Non >60 [...] Specimen Performing Laboratory Blood [facility] [address] [place] [address] * PREALBUMIN (02/14/2018 6:30 AM) Component Value Ref Range Prealbumin 11.0 (L) 17 - 34 MG/DL Specimen Performing Laboratory Blood [facility] [address] [place] [address] * CBC CELLULAR THERAPEUTICS (02/14/2018 6:30 AM) Component Value Ref Range White Blood Cells 10.0 4.5 - 11.0 K/UL RBC 2.93 (L) 4.0 - 5.0 M/UL Hemoglobin 7.6 (L) 12.0 - 15.0 GM/DL Hematocrit 23.3 (L) 36 - 45 % MCV 79.6 (L) 80 - 100 FL MCH 25.9 (L) 26 - 34 PG MCHC 32.5 32.0 - 36.0 G/DL RDW 21.0 (H) 11 - 15 % Platelet Count 463 (H) 150 - 400 K/UL MPV 6.7 (L) 7 - 11 FL Specimen Performing Laboratory Blood [facility] [address] [place], [place] [id number] * POC GLUCOSE (02/13/2018 9:02 PM) Component Value Ref Range Glucose, POC 124 (H) 70 - 100 MG/DL Specimen Performing Laboratory [facility] [address] [place], [place] [phone] * VANCOMYCIN TROUGH (02/13/2018 8:45 PM) Component Value Ref Range Vancomycin Trough 15.2 10.0 - 20.0 MCG/ML Specimen Performing Laboratory Blood, venous - Blood [facility] [address] [place], [place] [phone] * POC GLUCOSE (02/13/2018 4:53 PM) Component Value Ref Range Glucose, POC 129 (H) 70 - 100 MG/DL Specimen Performing Laboratory [facility] [address] [place] [address] * CBC (02/13/2018 3:08 PM) Component Value Ref Range White Blood Cells [...] - 11 FL Specimen Performing Laboratory Blood [facility] [address] [place] [address] * POC GLUCOSE (02/13/2018 11:57 AM) Component Value Ref Range Glucose, POC 106 (H) 70 - 100 MG/DL Specimen Performing Laboratory [facility] [address] [place] [address] * POC GLUCOSE (02/13/2018 7:16 AM) Component Value Ref Range Glucose, POC 112 (H) 70 - 100 MG/DL Specimen Performing Laboratory [address] [address] * CBC (02/13/2018 6:30 AM) Component Value Ref Range White Blood Cells 9.3 4.5 - 11.0 K/UL RBC 3.06 (L) 4.0 - 5.0 M/UL Hemoglobin 8.1 (L) 12.0 - 15.0 GM/DL Hematocrit 24.3 (L) 36 - 45 % MCV 79.3 (L) 80 - 100 FL MCH 26.6 26 - 34 PG MCHC 33.5 32.0 - 36.0 G/DL RDW 20.7 (H) 11 - 15 % Platelet Count 455 (H) 150 - 400 K/UL MPV 6.7 (L) 7 - 11 FL Specimen Performing Laboratory Blood [facility] [address] [place] [address] * POC GLUCOSE (02/12/2018 9:27 PM) Component Value Ref Range Glucose, POC 146 (H) 70 - 100 MG/DL Specimen Performing Laboratory [facility] [address] [place] [address] * POC GLUCOSE (02/12/2018 4:33 PM) Component Value Ref Range Glucose, POC 81 70 - 100 MG/DL Specimen Performing Laboratory [facility] [address] [place] [address] * POC GLUCOSE (02/12/2018 11:36 AM) Component Value Ref Range Glucose, POC 122 (H) 70 - 100 MG/DL Specimen Performing Laboratory [facility] [address] [place] [address]672 * POC GLUCOSE (02/12/2018 6:50 AM) Component Value Ref Range Glucose, POC 88 70 - 100 MG/DL Specimen Performing Laboratory MAIN LAB [address] [place] [address] * POC GLUCOSE (02/11/2018 9:16 PM) Component Value Ref Range Glucose, POC 119 (H) 70 - 100 MG/DL Specimen Performing Laboratory MAIN LAB [address] [place] [address] * POC GLUCOSE (02/11/2018 4:58 PM) Component Value Ref Range Glucose, POC 88 70 - 100 MG/DL Specimen Performing Laboratory MAIN [facility] [address] [place] [address] * POC GLUCOSE (02/11/2018 11:36 AM) Component Value Ref Range Glucose, POC 91 70 - 100 MG/DL Specimen Performing Laboratory MAIN [facility] [address] [place] [address] * POC GLUCOSE (02/11/2018 6:51 AM) Component Value Ref Range Glucose, POC 84 70 - 100 MG/DL Specimen Performing Laboratory MAIN [facility] [address] [place] [address] * BASIC METABOLIC PANEL CELLULAR THERAPEUTICS (02/11/2018 5:45 AM) Component Value Ref Range Sodium 138 137 - 147 MMOL/L Potassium 4.0 3.5 - 5.1 MMOL/L Chloride 102 98 - 110 MMOL/L CO2 29 21 - 30 MMOL/L Anion Gap 7 3 - 12 Glucose 76 70 - 100 MG/DL Blood Urea Nitrogen 13 7 - 25 MG/DL Creatinine 0.60 0.4 - 1.00 MG/DL Calcium 8.9 8.5 - 10.6 MG/DL eGFR Non >60 [...] questions. Specimen Performing Laboratory Blood MAIN LAB [address] [place] [address] * CBC CELLULAR THERAPEUTICS (02/11/2018 5:45 AM) Component Value Ref Range White Blood Cells 9.0 4.5 - 11.0 K/UL RBC 2.92 (L) 4.0 - 5.0 M/UL Hemoglobin 7.6 (L) 12.0 - 15.0 GM/DL Hematocrit 23.2 (L) 36 - 45 % MCV 79.5 (L) 80 - 100 FL MCH 26.0 26 - 34 PG MCHC 32.7 32.0 - 36.0 G/DL RDW 20.3 (H) 11 - 15 % Platelet Count 479 (H) 150 - 400 K/UL MPV 6.6 (L) 7 - 11 FL Specimen Performing Laboratory Blood [facility] [address] [place] [address] * POC GLUCOSE (02/10/2018 9:28 PM) Component Value Ref Range Glucose, POC 155 (H) 70 - 100 MG/DL Specimen Performing Laboratory [facility] [address] [place] [address] * POC GLUCOSE (02/10/2018 5:05 PM) Component Value Ref Range Glucose, POC 105 (H) 70 - 100 MG/DL Specimen Performing Laboratory [facility] [address] [place], [place] [phone] * TYPE & CROSSMATCH (02/10/2018 4:20 PM) Component Value Ref Range Units Ordered 1 Crossmatch Expires 02/13/2018 Record Check FOUND ABO/RH(D) A POS Antibody Screen NEG Electronic Crossmatch YES Unit Number [id number] Blood Component Type RBC,ADSOL,LEUKO REDUCED Unit Division 0 Status OF Unit TRANSFUSED Transfusion Status OK TO TRANSFUSE Crossmatch Result COMPATIBLE,ELECTRONIC Specimen Performing Laboratory Blood [facility] [address] [place] [address] * POC GLUCOSE (02/10/2018 3:33 PM) Component Value Ref Range Glucose, POC 132 (H) 70 - 100 MG/DL Specimen Performing Laboratory [facility] [address] [place] [address]34 * POC GLUCOSE (02/10/2018 1:35 PM) Component Value Ref Range Glucose, POC 106 (H) 70 - 100 MG/DL Specimen Performing Laboratory [facility] [address] [place] [address]161 * POC GLUCOSE (02/10/2018 11:51 AM) Component Value Ref Range Glucose, POC 107 (H) 70 - 100 MG/DL Specimen Performing Laboratory [facility] [address] [place] [address] * CBC (02/10/2018 7:50 AM) Component Value Ref Range White Blood Cells 8.8 4.5 - 11.0 K/UL RBC 2.66 (L) 4.0 - 5.0 M/UL Hemoglobin 6.8 (L) 12.0 - 15.0 GM/DL Hematocrit 21.0 (L) 36 - 45 % MCV 79.0 (L) 80 - 100 FL MCH 25.5 (L) 26 - 34 PG MCHC 32.3 32.0 - 36.0 G/DL RDW 20.3 (H) 11 - 15 % Platelet Count 489 (H) 150 - 400 K/UL MPV 6.7 (L) 7 - 11 FL Specimen Performing Laboratory Blood [facility] [address] [place] [address] * POC GLUCOSE (02/10/2018 6:46 AM) Component Value Ref Range Glucose, POC 73 70 - 100 MG/DL Specimen Performing Laboratory [facility] [address] [place], [place] [phone] * CBC (02/10/2018 5:54 AM) Component Value Ref Range White Blood Cells 8.6 4.5 - 11.0 K/UL RBC 2.57 (L) 4.0 - 5.0 M/UL Hemoglobin 6.5 (L) 12.0 - 15.0 GM/DL Hematocrit 20.3 (L) 36 - 45 % MCV 78.8 (L) 80 - 100 FL MCH 25.4 (L) 26 - 34 PG MCHC 32.2 32.0 - 36.0 G/DL RDW 20.2 (H) 11 - 15 % Platelet Count 442 (H) 150 - 400 K/UL MPV 6.7 (L) 7 - 11 FL Specimen Performing Laboratory Blood [facility] [address] [place], [place] [phone] * POC GLUCOSE (02/09/2018 8:59 PM) Component Value Ref Range Glucose, POC 111 (H) 70 - 100 MG/DL Specimen Performing Laboratory [facility] [address] [place], [place] [phone] * VANCOMYCIN TROUGH (02/09/2018 8:57 PM) Component Value Ref Range Vancomycin Trough 9.6 (L) 10.0 - 20.0 MCG/ML Specimen Performing Laboratory Blood, venous - Blood [facility] [address] [place] [address]694 * POC GLUCOSE (02/09/2018 5:02 PM) Component Value Ref Range Glucose, POC 110 (H) 70 - 100 MG/DL Specimen Performing Laboratory [facility] [address] [place], [place] [phone] * POC GLUCOSE (02/09/2018 3:23 PM) Component Value Ref Range Glucose, POC 123 (H) 70 - 100 MG/DL Specimen Performing Laboratory [facility] [address] [place], [place] [phone] * POC GLUCOSE (02/09/2018 1:21 PM) Component Value Ref Range Glucose, POC 120 (H) 70 - 100 MG/DL Specimen Performing Laboratory [facility] [address] [place], [place] [phone] * POC GLUCOSE (02/09/2018 11:58 AM) Component Value Ref Range Glucose, POC 136 (H) 70 - 100 MG/DL Specimen Performing Laboratory [facility] [address] [place], [place] [phone] * POC GLUCOSE (02/09/2018 6:57 AM) Component Value Ref Range Glucose, POC 121 (H) 70 - 100 MG/DL Specimen Performing Laboratory [facility] [address] [place] [address] * BASIC METABOLIC PANEL CELLULAR THERAPEUTICS (02/09/2018 6:09 AM) Component Value Ref Range Sodium 139 137 - 147 MMOL/L Potassium 4.1 3.5 - 5.1 MMOL/L Chloride 103 98 - 110 MMOL/L CO2 30 21 - 30 MMOL/L Anion Gap 6 3 - 12 Glucose 101 (H) 70 - 100 MG/DL Blood Urea Nitrogen 16 7 - 25 MG/DL Creatinine 0.56 0.4 - 1.00 MG/DL Calcium 8.9 8.5 - 10.6 MG/DL eGFR Non >60 [...] Pharmacist for questions. Specimen Performing Laboratory Blood [facility] [address] [place] [address] * CBC CELLULAR THERAPEUTICS (02/09/2018 6:09 AM) Component Value Ref Range White Blood Cells 8.8 4.5 - 11.0 K/UL RBC 2.69 (L) 4.0 - 5.0 M/UL Hemoglobin 6.9 (L) 12.0 - 15.0 GM/DL Hematocrit 21.1 (L) 36 - 45 % MCV 78.4 (L) 80 - 100 FL MCH 25.7 (L) 26 - 34 PG MCHC 32.8 32.0 - 36.0 G/DL RDW 20.1 (H) 11 - 15 % Platelet Count 482 (H) 150 - 400 K/UL MPV 6.6 (L) 7 - 11 FL Specimen Performing Laboratory Blood [facility] [address] [place] [address]66 * POC GLUCOSE (02/08/2018 9:02 PM) Component Value Ref Range Glucose, POC 100 70 - 100 MG/DL Specimen Performing Laboratory [facility] [address] [place] [address]303 * POC GLUCOSE (02/08/2018 6:43 PM) Component Value Ref Range Glucose, POC 248 (H) 70 - 100 MG/DL Specimen Performing Laboratory [facility] [address] [place] [address]199 * POC GLUCOSE (02/08/2018 3:21 PM) Component Value Ref Range Glucose, POC 172 (H) 70 - 100 MG/DL Specimen Performing Laboratory [facility] [address] [place] [address] 78403 * POC GLUCOSE (02/08/2018 1:23 PM) Component Value Ref Range Glucose, POC 107 (H) 70 - 100 MG/DL Specimen Performing Laboratory [facility] [address] [place] [address] 40604 * POC GLUCOSE (02/08/2018 12:05 PM) Component Value Ref Range Glucose, POC 114 (H) 70 - 100 MG/DL Specimen Performing Laboratory [facility] [address] [place] [address] 95124 * POC GLUCOSE (02/08/2018 6:54 AM) Component Value Ref Range Glucose, POC 101 (H) 70 - 100 MG/DL Specimen Performing Laboratory [facility] [address] [place] [address] 6[address] * BASIC METABOLIC PANEL CELLULAR THERAPEUTICS (02/08/2018 5:49 AM) Component Value Ref Range Sodium 140 137 - 147 MMOL/L Potassium 4.1 3.5 - 5.1 MMOL/L Chloride 104 98 - 110 MMOL/L CO2 31 (H) 21 - 30 MMOL/L Anion Gap 5 3 - 12 Glucose 109 (H) 70 - 100 MG/DL Blood Urea Nitrogen 15 7 - 25 MG/DL Creatinine 0.54 0.4 - 1.00 MG/DL Calcium 8.8 8.5 - 10.6 MG/DL eGFR Non >60 [...] Pharmacist for questions. Specimen Performing Laboratory Blood [facility] [address] [place], [place] [phone] * POC GLUCOSE (02/07/2018 9:08 PM) Component Value Ref Range Glucose, POC 97 70 - 100 MG/DL Specimen Performing Laboratory [facility] [address] [place] [address] 52567 * POC GLUCOSE (02/07/2018 4:49 PM) Component Value Ref Range Glucose, POC 112 (H) 70 - 100 MG/DL Specimen Performing Laboratory [facility] [address] [place] [address] 45232 * POC GLUCOSE (02/07/2018 3:24 PM) Component Value Ref Range Glucose, POC 116 (H) 70 - 100 MG/DL Specimen Performing Laboratory [facility] [address] [place] [address] 20284 * POC GLUCOSE (02/07/2018 1:21 PM) Component Value Ref Range Glucose, POC 127 (H) 70 - 100 MG/DL Specimen Performing Laboratory [facility] [address] [place] [address] 20387 * POC GLUCOSE (02/07/2018 11:54 AM) Component Value Ref Range Glucose, POC 162 (H) 70 - 100 MG/DL Specimen Performing Laboratory [facility] [address] [place] [address] 8[address]60 * CBC (02/07/2018 7:55 AM) Component Value Ref Range White Blood Cells 9.0 4.5 - 11.0 K/UL RBC 3.02 (L) 4.0 - 5.0 M/UL Hemoglobin 7.9 (L) 12.0 - 15.0 GM/DL Hematocrit 23.9 (L) 36 - 45 % MCV 79.2 (L) 80 - 100 FL MCH 26.0 26 - 34 PG MCHC 32.9 32.0 - 36.0 G/DL RDW 20.1 (H) 11 - 15 % Platelet Count 490 (H) 150 - 400 K/UL MPV 6.8 (L) 7 - 11 FL Specimen Performing Laboratory Blood [facility] [address] [place] [address] 83144 * POC GLUCOSE (02/07/2018 7:04 AM) Component Value Ref Range Glucose, POC 94 70 - 100 MG/DL Specimen Performing Laboratory [facility] [address] [place] [address] 87810 * BASIC METABOLIC PANEL CELLULAR [employer] (02/07/2018 5:16 AM) Component Value Ref Range Sodium 140 137 - 147 MMOL/L Potassium 4.0 3.5 - 5.1 MMOL/L Chloride 104 98 - 110 MMOL/L CO2 29 21 - 30 MMOL/L Anion Gap 7 3 - 12 Glucose 79 70 - 100 MG/DL Blood Urea Nitrogen 15 7 - 25 MG/DL Creatinine 0.65 0.4 - 1.00 MG/DL Calcium 8.8 8.5 - 10.6 MG/DL eGFR Non >60 [...] Specimen Performing Laboratory Blood [facility] [address] [place] [address] 32376 * PREALBUMIN (02/07/2018 5:16 AM) Component Value Ref Range Prealbumin 11.0 (L) 17 - 34 MG/DL Specimen Performing Laboratory Blood [facility] [address] [place] [address] 52750 * CBC CELLULAR THERAPEUTICS (02/07/2018 5:16 AM) Component Value Ref Range White Blood Cells 9.2 4.5 - 11.0 K/UL RBC 2.55 (L) 4.0 - 5.0 M/UL Hemoglobin 6.6 (L) 12.0 - 15.0 GM/DL Hematocrit 20.3 (L) 36 - 45 % MCV 79.7 (L) 80 - 100 FL MCH 25.9 (L) 26 - 34 PG MCHC 32.5 32.0 - 36.0 G/DL RDW 20.1 (H) 11 - 15 % Platelet Count 527 (H) 150 - 400 K/UL MPV 6.9 (L) 7 - 11 FL Specimen Performing Laboratory Blood [facility] [address] [place], [place] [phone] * POC GLUCOSE (02/06/2018 8:42 PM) Component Value Ref Range Glucose, POC 140 (H) 70 - 100 MG/DL Specimen Performing Laboratory [facility] [address] [place], [place] [phone] * POC GLUCOSE (02/06/2018 4:45 PM) Component Value Ref Range Glucose, POC 108 (H) 70 - 100 MG/DL Specimen Performing Laboratory [facility] [address] [place], [place] [phone] * POC GLUCOSE (02/06/2018 11:39 AM) Component Value Ref Range Glucose, POC 130 (H) 70 - 100 MG/DL Specimen Performing Laboratory [facility] [address] [place], [place] [phone] * POC GLUCOSE (02/06/2018 7:24 AM) Component Value Ref Range Glucose, POC 82 70 - 100 MG/DL Specimen Performing Laboratory [facility] [address] [place], [place] [phone] * BASIC METABOLIC PANEL CELLULAR THERAPEUTICS (02/06/2018 5:20 AM) Component Value Ref Range Sodium 139 137 - 147 MMOL/L Potassium 4.0 3.5 - 5.1 MMOL/L Chloride 103 98 - 110 MMOL/L CO2 30 21 - 30 MMOL/L Anion Gap 6 3 - 12 Glucose 84 70 - 100 MG/DL Blood Urea Nitrogen 16 7 - 25 MG/DL Creatinine 0.51 0.4 - 1.00 MG/DL Calcium 8.8 8.5 - 10.6 MG/DL eGFR Non >60 [...] Specimen Performing Laboratory Blood [facility] [address] [place] [id number] * POC GLUCOSE (02/05/2018 9:01 PM) Component Value Ref Range Glucose, POC 95 70 - 100 MG/DL Specimen Performing Laboratory [facility] [address] [place] [id number] * POC GLUCOSE (02/05/2018 4:53 PM) Component Value Ref Range Glucose, POC 123 (H) 70 - 100 MG/DL Specimen Performing Laboratory [facility] [address] [place] [id number] * POC GLUCOSE (02/05/2018 12:26 PM) Component Value Ref Range Glucose, POC 122 (H) 70 - 100 MG/DL Specimen Performing Laboratory MAIN LAB [address] [place], [place] [id number] * POC GLUCOSE (02/05/2018 7:25 AM) Component Value Ref Range Glucose, POC 101 (H) 70 - 100 MG/DL Specimen Performing Laboratory [facility] [address] [place] [address] * BASIC METABOLIC PANEL CELLULAR THERAPEUTICS (02/05/2018 5:45 AM) Component Value Ref Range Sodium 139 137 - 147 MMOL/L Potassium 4.2 3.5 - 5.1 MMOL/L Chloride 103 98 - 110 MMOL/L CO2 29 21 - 30 MMOL/L Anion Gap 7 3 - 12 Glucose 95 70 - 100 MG/DL Blood Urea Nitrogen 15 7 - 25 MG/DL Creatinine 0.53 0.4 - 1.00 MG/DL Calcium 8.6 8.5 [...] Pharmacist for questions. Specimen Performing Laboratory Blood [facility] [address] [place] [address] [place] [address] * VANCOMYCIN TROUGH (02/04/2018 11:15 PM) Component Value Ref Range Vancomycin Trough 18.7 10.0 - 20.0 MCG/ML Specimen Performing Laboratory Blood, venous - Blood [facility] [address] [place] [address] * POC GLUCOSE (02/04/2018 9:19 PM) Component Value Ref Range Glucose, POC 155 (H) 70 - 100 MG/DL Specimen Performing Laboratory [facility] [address] [place] [address] 444[address] * POC GLUCOSE (02/04/2018 4:50 PM) Component Value Ref Range Glucose, POC 111 (H) 70 - 100 MG/DL Specimen Performing Laboratory [facility] [address] [place], [place] [phone] * POC GLUCOSE (02/04/2018 3:15 PM) Component Value Ref Range Glucose, POC 102 (H) 70 - 100 MG/DL Specimen Performing Laboratory [facility] [address] [place], [place] [phone] * POC GLUCOSE (02/04/2018 1:12 PM) Component Value Ref Range Glucose, POC 160 (H) 70 - 100 MG/DL Specimen Performing Laboratory [facility] [address] [place] [address] 6[address] * POC GLUCOSE (02/04/2018 12:00 PM) Component Value Ref Range Glucose, POC 176 (H) 70 - 100 MG/DL Specimen Performing Laboratory [facility] [address] [place] [address] 29562 * POC GLUCOSE (02/04/2018 7:11 AM) Component Value Ref Range Glucose, POC 118 (H) 70 - 100 MG/DL Specimen Performing Laboratory [facility] [address] [place], [place] [phone] * BASIC METABOLIC PANEL CELLULAR THERAPEUTICS (02/04/2018 5:50 AM) Component Value Ref Range Sodium 137 137 - 147 MMOL/L Potassium 4.1 3.5 - 5.1 MMOL/L Chloride 103 98 - 110 MMOL/L CO2 30 21 - 30 MMOL/L Anion Gap 4 3 - 12 Glucose 123 (H) 70 - 100 MG/DL Blood Urea Nitrogen 14 7 - 25 MG/DL Creatinine 0.59 0.4 - 1.00 MG/DL Calcium 8.8 8.5 - 10.6 MG/DL eGFR Non >60 [...] Specimen Performing Laboratory Blood [facility] [address] [place] [address] * CBC AND DIFF (02/04/2018 5:50 AM) Component Value Ref Range White Blood Cells 5.0 4.5 - 11.0 K/UL RBC 4.73 4.0 - 5.0 M/UL Hemoglobin 12.4 12.0 - 15.0 GM/DL Hematocrit 37.7 36 - 45 % MCV 79.7 (L) 80 - 100 FL MCH 26.2 26 - 34 PG MCHC 32.8 32.0 - 36.0 G/DL RDW 19.2 (H) 11 - 15 % Platelet Count 320 150 - 400 K/UL MPV 7.0 7 - 11 FL Neutrophils 70 41 - 77 % Lymphocytes 11 (L) 24 - 44 % Monocytes 11 4 - 12 % Eosinophils 7 (H) 0 - 5 % Basophils 1 0 - 2 % Absolute Neutrophil Count 3.60 1.8 - 7.0 K/UL Absolute Lymph Count 0.60 (L) 1.0 - 4.8 K/UL Absolute Monocyte Count 0.60 0 - 0.80 K/UL Absolute Eosinophil Count 0.30 0 - 0.45 K/UL Absolute Basophil Count 0.00 0 - 0.20 K/UL Specimen Performing Laboratory Blood [facility]IN [facility] [address] [place] [address] * LIVER FUNCTION PANEL (02/04/2018 5:50 AM) Component Value Ref Range Total Bilirubin 0.2 (L) 0.3 - 1.2 MG/DL Bilirubin, Direct 0.1 <0.4 MG/DL Albumin 2.3 (L) 3.5 - 5.0 G/DL Alk Phosphatase 137 (H) 25 - 110 U/L AST (SGOT) 46 (H) 7 - 40 U/L ALT (SGPT) 44 7 - 56 U/L Total Protein 5.4 (L) 6.0 - 8.0 G/DL Specimen Performing Laboratory Blood [facility] [address] [place] [address] * POC GLUCOSE (02/03/2018 9:26 PM) Component Value Ref Range Glucose, POC 155 (H) 70 - 100 MG/DL Specimen Performing Laboratory [facility] [address] [place] [address] * POC GLUCOSE (02/03/2018 6:49 PM) Component Value Ref Range Glucose, POC 83 70 - 100 MG/DL Specimen Performing Laboratory [facility] [address] [place] [address] 6[address] * POC GLUCOSE (02/03/2018 5:30 PM) Component Value Ref Range Glucose, POC 95 70 - 100 MG/DL Specimen Performing Laboratory [facility] [address] [place] [address] 148[address] * POC GLUCOSE (02/03/2018 3:09 PM) Component Value Ref Range Glucose, POC 167 (H) 70 - 100 MG/DL Specimen Performing Laboratory [facility] [address] [place] [address] 586[address] * BASIC METABOLIC PANEL CELLULAR THERAPEUTICS (02/03/2018 12:25 PM) Component Value Ref Range Sodium 137 137 - 147 MMOL/L Potassium 4.3 3.5 - 5.1 MMOL/L Chloride 102 98 - 110 MMOL/L CO2 28 21 - 30 MMOL/L Anion Gap 7 3 - 12 Glucose 156 (H) 70 - 100 MG/DL Blood Urea Nitrogen 15 7 - 25 MG/DL Creatinine 0.59 0.4 - 1.00 MG/DL Calcium 9.0 8.5 - 10.6 MG/DL eGFR Non >60 [...] questions. Specimen Performing Laboratory Blood [facility]IN [facility] [address] [place] [address] * POC GLUCOSE (02/03/2018 12:00 PM) Component Value Ref Range Glucose, POC 121 (H) 70 - 100 MG/DL Specimen Performing Laboratory [facility] [address] [place] [address] * POC GLUCOSE (02/03/2018 7:13 AM) Component Value Ref Range Glucose, POC 86 70 - 100 MG/DL Specimen Performing Laboratory [facility] [address] [place] [address] 284[address] * POC GLUCOSE (02/02/2018 9:41 PM) Component Value Ref Range Glucose, POC 134 (H) 70 - 100 MG/DL Specimen Performing Laboratory [facility] [address] [place] [address] 9[address]18 * POC GLUCOSE (02/02/2018 5:03 PM) Component Value Ref Range Glucose, POC 176 (H) 70 - 100 MG/DL Specimen Performing Laboratory [facility] [address] [place] [address] 7[address] * POC GLUCOSE (02/02/2018 3:22 PM) Component Value Ref Range Glucose, POC 109 (H) 70 - 100 MG/DL Specimen Performing Laboratory [facility] [address] [place], [place] [phone] * POC GLUCOSE (02/02/2018 1:37 PM) Component Value Ref Range Glucose, POC 141 (H) 70 - 100 MG/DL Specimen Performing Laboratory [facility] [address] [place], [place] [phone] * POC GLUCOSE (02/02/2018 12:02 PM) Component Value Ref Range Glucose, POC 154 (H) 70 - 100 MG/DL Specimen Performing Laboratory [facility] [address] [place] [address] 51496 * POC GLUCOSE (02/02/2018 7:31 AM) Component Value Ref Range Glucose, POC 147 (H) 70 - 100 MG/DL Specimen Performing Laboratory [facility] [address] [place] [address] * BASIC METABOLIC PANEL CELLULAR THERAPEUTICS (02/02/2018 6:31 AM) Component Value Ref Range Sodium 137 137 - 147 MMOL/L Potassium 3.8 3.5 - 5.1 MMOL/L Chloride 102 98 - 110 MMOL/L CO2 30 21 - 30 MMOL/L Anion Gap 5 3 - 12 Glucose 153 (H) 70 - 100 MG/DL Blood Urea Nitrogen 15 7 - 25 MG/DL Creatinine 0.68 0.4 - 1.00 MG/DL Calcium 8.6 8.5 [...] questions. Specimen Performing Laboratory Blood [facility] [address] [place] [address] * CBC CELLULAR THERAPEUTICS (02/02/2018 6:31 AM) Component Value Ref Range White Blood Cells 7.7 4.5 - 11.0 K/UL RBC 3.88 (L) 4.0 - 5.0 M/UL Hemoglobin 10.4 (L) 12.0 - 15.0 GM/DL Hematocrit 31.0 (L) 36 - 45 % MCV 79.8 (L) 80 - 100 FL MCH 26.8 26 - 34 PG MCHC 33.6 32.0 - 36.0 G/DL RDW 19.2 (H) 11 - 15 % Platelet Count 409 (H) 150 - 400 K/UL MPV 6.6 (L) 7 - 11 FL Specimen Performing Laboratory Blood [facility] [address] [place] [address] * POC GLUCOSE (02/01/2018 9:44 PM) Component Value Ref Range Glucose, POC 119 (H) 70 - 100 MG/DL Specimen Performing Laboratory [facility] [address] [place], [place] [phone] * POC GLUCOSE (02/01/2018 5:03 PM) Component Value Ref Range Glucose, POC 193 (H) 70 - 100 MG/DL Specimen Performing Laboratory [facility] [address] [place] [address] * BASIC METABOLIC PANEL CELLULAR THERAPEUTICS (02/01/2018 4:40 PM) Component Value Ref Range Sodium 136 (L) 137 - 147 MMOL/L Potassium 3.9 3.5 - 5.1 MMOL/L Chloride 102 98 - 110 MMOL/L CO2 27 21 - 30 MMOL/L Anion Gap 7 3 - 12 Glucose 190 (H) 70 - 100 MG/DL Blood Urea Nitrogen 16 7 - 25 MG/DL Creatinine 0.55 0.4 - 1.00 MG/DL Calcium 8.2 (L) 8.5 - 10.6 MG/DL eGFR Non [...] Pharmacist for questions. Specimen Performing Laboratory Blood [facility] [address] [place] [address] * POC GLUCOSE (02/01/2018 3:36 PM) Component Value Ref Range Glucose, POC 224 (H) 70 - 100 MG/DL Specimen Performing Laboratory [facility] [address] [place], [place] [phone] * POC GLUCOSE (02/01/2018 1:46 PM) Component Value Ref Range Glucose, POC 273 (H) 70 - 100 MG/DL Specimen Performing Laboratory [facility] [address] [place], [place] [phone] * POC GLUCOSE (02/01/2018 12:02 PM) Component Value Ref Range Glucose, POC 255 (H) 70 - 100 MG/DL Specimen Performing Laboratory [facility] [address] [place], [place] [phone] * POC GLUCOSE (02/01/2018 7:19 AM) Component Value Ref Range Glucose, POC 111 (H) 70 - 100 MG/DL Specimen Performing Laboratory [facility] [address] [place], [place] [phone] * POC GLUCOSE (02/01/2018 3:49 AM) Component Value Ref Range Glucose, POC 125 (H) 70 - 100 MG/DL Specimen Performing Laboratory [facility] [address] [place], [place] [phone] * POC GLUCOSE (01/31/2018 9:59 PM) Component Value Ref Range Glucose, POC 150 (H) 70 - 100 MG/DL Specimen Performing Laboratory [facility] [address] [place] [address] * CULTURE-BLOOD W/SENSITIVITY (01/31/2018 6:00 PM) Component Value Ref Range Battery Name BLOOD CULTURE Specimen Description BLOOD LEFT ANTECUBITAL PERIPHERAL DRAW Special Requests NONE Culture NO GROWTH 5 DAYS Report Status FINAL 02/06/2018 Specimen Performing Laboratory Blood [facility] [address] [place] [address] * CULTURE-BLOOD W/SENSITIVITY (01/31/2018 6:00 PM) Component Value Ref Range Battery Name BLOOD CULTURE Specimen Description BLOOD PICC LINE Special Requests NONE Culture NO GROWTH 5 DAYS Report Status FINAL 02/06/2018 Specimen Performing Laboratory Blood [facility] [address] [place] [address] 36744 * POC GLUCOSE (01/31/2018 4:59 PM) Component Value Ref Range Glucose, POC 115 (H) 70 - 100 MG/DL Specimen Performing Laboratory [facility] [address] [place] [address] 65066 * POC GLUCOSE (01/31/2018 3:59 PM) Component Value Ref Range Glucose, POC 143 (H) 70 - 100 MG/DL Specimen Performing Laboratory [facility] [address] [place] [address] 51261 * POC GLUCOSE (01/31/2018 1:11 PM) Component Value Ref Range Glucose, POC 172 (H) 70 - 100 MG/DL Specimen Performing Laboratory [facility] [address] [place], [place] [phone] * POC GLUCOSE (01/31/2018 11:51 AM) Component Value Ref Range Glucose, POC 124 (H) 70 - 100 MG/DL Specimen Performing Laboratory [facility] [address] [place], [place] [phone] * HEMOGLOBIN (01/31/2018 11:50 AM) Component Value Ref Range Hemoglobin 8.5 (L) 12.0 - 15.0 GM/DL Specimen Performing Laboratory Blood [facility] [address] [place], [place] [phone] * POC GLUCOSE (01/31/2018 6:56 AM) Component Value Ref Range Glucose, POC 119 (H) 70 - 100 MG/DL Specimen Performing Laboratory [facility] [address] [place] [address] * PREALBUMIN (01/31/2018 5:48 AM) Component Value Ref Range Prealbumin 10.0 (L) 17 - 34 MG/DL Specimen Performing Laboratory Blood [facility] [address] [place], [place] [phone] * BASIC METABOLIC PANEL CELLULAR THERAPEUTICS (01/31/2018 5:48 AM) Component Value Ref Range Sodium 139 137 - 147 MMOL/L Potassium 3.8 3.5 - 5.1 MMOL/L Chloride 104 98 - 110 MMOL/L CO2 29 21 - 30 MMOL/L Anion Gap 6 3 - 12 Glucose 101 (H) 70 - 100 MG/DL Blood Urea Nitrogen 15 7 - 25 MG/DL Creatinine 0.56 0.4 - 1.00 MG/DL Calcium 8.8 8.5 - 10.6 MG/DL eGFR Non >60 [...] Pharmacist for questions. Specimen Performing Laboratory Blood [facility] [address] [place], [place] [phone] * POC GLUCOSE (01/31/2018 4:10 AM) Component Value Ref Range Glucose, POC 117 (H) 70 - 100 MG/DL Specimen Performing Laboratory [facility] [address] [place] [address] 38881 * POC GLUCOSE (01/30/2018 9:10 PM) Component Value Ref Range Glucose, POC 170 (H) 70 - 100 MG/DL Specimen Performing Laboratory [address] [address] * POC GLUCOSE (01/30/2018 4:52 PM) Component Value Ref Range Glucose, POC 215 (H) 70 - 100 MG/DL Specimen Performing Laboratory [facility] [address] [place] [address] 0[address]71 * POC GLUCOSE (01/30/2018 12:00 PM) Component Value Ref Range Glucose, POC 176 (H) 70 - 100 MG/DL Specimen Performing Laboratory [address] [address] * POC GLUCOSE (01/30/2018 6:49 AM) Component Value Ref Range Glucose, POC 118 (H) 70 - 100 MG/DL Specimen Performing Laboratory [address] [address] * POC GLUCOSE (01/30/2018 3:10 AM) Component Value Ref Range Glucose, POC 155 (H) 70 - 100 MG/DL Specimen Performing Laboratory [facility] [address] [place] [address] 50183 * POC GLUCOSE (01/29/2018 9:04 PM) Component Value Ref Range Glucose, POC 234 (H) 70 - 100 MG/DL Specimen Performing Laboratory [facility] [address] [place] [address]155 * POC GLUCOSE (01/29/2018 4:51 PM) Component Value Ref Range Glucose, POC 200 (H) 70 - 100 MG/DL Specimen Performing Laboratory [facility] [address] [place] [address] 12781 * CBC (01/29/2018 1:10 PM) Component Value Ref Range White Blood Cells 10.9 4.5 - 11.0 K/UL RBC 3.18 (L) 4.0 - 5.0 M/UL Hemoglobin 8.5 (L) 12.0 - 15.0 GM/DL Hematocrit 25.8 (L) 36 - 45 % MCV 81.0 80 - 100 FL MCH 26.8 26 - 34 PG MCHC 33.1 32.0 - 36.0 G/DL RDW 18.4 (H) 11 - 15 % Platelet Count 514 (H) 150 - 400 K/UL MPV 7.2 7 - 11 FL Specimen Performing Laboratory Blood [facility] [address] [place] [address] 14825 * POC GLUCOSE (01/29/2018 11:48 AM) Component Value Ref Range Glucose, POC 229 (H) 70 - 100 MG/DL Specimen Performing Laboratory [facility] [address] [place] [address] 53044 * POC GLUCOSE (01/29/2018 6:52 AM) Component Value Ref Range Glucose, POC 144 (H) 70 - 100 MG/DL Specimen Performing Laboratory [facility] [address] [place] [address] 67791 * POC GLUCOSE (01/29/2018 3:09 AM) Component Value Ref Range Glucose, POC 157 (H) 70 - 100 MG/DL Specimen Performing Laboratory [facility] [address] [place] [address] 21963 * POC GLUCOSE (01/28/2018 9:42 PM) Component Value Ref Range Glucose, POC 229 (H) 70 - 100 MG/DL Specimen Performing Laboratory [facility] [address] [place] [address] 30708 * POC GLUCOSE (01/28/2018 5:12 PM) Component Value Ref Range Glucose, POC 119 (H) 70 - 100 MG/DL Specimen Performing Laboratory [facility] [address] [place] [address] 97812 * VANCOMYCIN TROUGH (01/28/2018 12:15 PM) Component Value Ref Range Vancomycin Trough 11.9 10.0 - 20.0 MCG/ML Specimen Performing Laboratory Blood, venous - Blood [facility] [address] [place] [address] 9[address]30 * POC GLUCOSE (01/28/2018 12:14 PM) Component Value Ref Range Glucose, POC 156 (H) 70 - 100 MG/DL Specimen Performing Laboratory [facility] [address] [place] [address] 09990 * TYPE & CROSSMATCH (01/28/2018 9:15 AM) Component Value Ref Range Units Ordered 1 Crossmatch Expires 01/31/2018 Record Check FOUND ABO/RH(D) A POS Antibody Screen NEG Electronic Crossmatch YES Unit Number [id number] Blood Component Type RBC,ADSOL,LEUKO REDUCED Unit Division 0 Status OF Unit TRANSFUSED Transfusion Status OK TO TRANSFUSE Crossmatch Result COMPATIBLE,ELECTRONIC Specimen Performing Laboratory Blood [facility] [address] [place] [id number] * POC GLUCOSE (01/28/2018 7:09 AM) Component Value Ref Range Glucose, POC 155 (H) 70 - 100 MG/DL Specimen Performing Laboratory [facility] [address] [place] [address] 8[address]61 * CBC AND DIFF (01/28/2018 6:00 AM) Component Value Ref Range White Blood Cells 12.3 (H) 4.5 - 11.0 K/UL RBC 2.39 (L) 4.0 - 5.0 M/UL Hemoglobin 6.5 (L) 12.0 - 15.0 GM/DL Hematocrit 19.0 (L) 36 - 45 % MCV 79.5 (L) 80 - 100 FL MCH 27.3 26 - 34 PG MCHC 34.3 32.0 - 36.0 G/DL RDW 18.9 (H) 11 - 15 % Platelet Count 578 (H) 150 - 400 K/UL MPV 6.7 (L) 7 - 11 FL Neutrophils 69 41 - 77 % Lymphocytes 10 (L) 24 - 44 % Monocytes 11 4 - 12 % Eosinophils 10 (H) 0 - 5 % Basophils 0 0 - 2 % Absolute Neutrophil Count 8.40 (H) 1.8 - 7.0 K/UL Absolute Lymph Count 1.30 1.0 - 4.8 K/UL Absolute Monocyte Count 1.30 (H) 0 - 0.80 K/UL Absolute Eosinophil Count 1.20 (H) 0 - 0.45 K/UL Absolute Basophil Count 0.10 0 - 0.20 K/UL Specimen Performing Laboratory Blood [facility] [address] [place] [address] 7[address]85 * COMPREHENSIVE METABOLIC PANEL (01/28/2018 6:00 AM) Component Value Ref Range Sodium 135 (L) [...] Specimen Performing Laboratory Blood [facility] [address] [place] [address] 83932 * POC GLUCOSE (01/28/2018 3:08 AM) Component Value Ref Range Glucose, POC 153 (H) 70 - 100 MG/DL Specimen Performing Laboratory [facility] [address] [place] [address] 24554 * POC GLUCOSE (01/27/2018 9:30 PM) Component Value Ref Range Glucose, POC 243 (H) 70 - 100 MG/DL Specimen Performing Laboratory [facility] [address] [place] [address] 80520 * POC GLUCOSE (01/27/2018 4:59 PM) Component Value Ref Range Glucose, POC 253 (H) 70 - 100 MG/DL Specimen Performing Laboratory [facility] [address] [place] [address] 65516 * POC GLUCOSE (01/27/2018 11:55 AM) Component Value Ref Range Glucose, POC 204 (H) 70 - 100 MG/DL Specimen Performing Laboratory [facility] [address] [place] [address] 64107 * POC GLUCOSE (01/27/2018 6:54 AM) Component Value Ref Range Glucose, POC 154 (H) 70 - 100 MG/DL Specimen Performing Laboratory [facility] [address] [place] [address] 27830 * POC GLUCOSE (01/27/2018 3:00 AM) Component Value Ref Range Glucose, POC 150 (H) 70 - 100 MG/DL Specimen Performing Laboratory [facility] [address] [place] [address] 66615 * URINALYSIS, MICROSCOPIC (01/26/2018 11:26 PM) Component Value Ref Range WBCs,UA 0-2 0 - 2 /HPF RBCs,UA NONE 0 - 3 /HPF Specimen Performing Laboratory Urine [facility] [address] [place] [address] 84095 * URINALYSIS DIPSTICK (01/26/2018 11:26 PM) Component Value Ref Range Color,UA STRAW Turbidity,UA CLEAR CLEAR-CLEAR Specific [place]-Urine 1.003 1.003 - 1.035 pH,UA 7.0 5.0 - 8.0 Protein,UA NEG NEG-NEG Glucose,UA NEG NEG-NEG Ketones,UA NEG NEG-NEG Bilirubin,UA NEG NEG-NEG Blood,UA NEG NEG-NEG Urobilinogen,UA NORMAL NORM-NORMAL Nitrite,UA NEG NEG-NEG Leukocytes,UA TRACE (A) NEG-NEG Urine Ascorbic Acid, UA NEG NEG-NEG Specimen Performing Laboratory Urine [facility] [address] [place] [address] 48516 * CULTURE-URINE W/SENSITIVITY (01/26/2018 11:26 PM) Component Value Ref Range Battery Name URINE CULTURE Specimen Description URINE,INDWELLING CATH Special Requests NONE Culture NO GROWTH Report Status FINAL 01/28/2018 Specimen Performing Laboratory Urine - Melchor Catheter [facility] [address] [place] [address]28 * CULTURE-BLOOD W/SENSITIVITY (01/26/2018 10:30 PM) Component Value Ref Range Battery Name BLOOD CULTURE Specimen Description BLOOD RIGHT ARM PICC LINE Special Requests NONE Culture NO GROWTH 5 DAYS Report Status FINAL 02/02/2018 Specimen Performing Laboratory Blood [facility] [address] [place] [address] 28894 * CULTURE-BLOOD W/SENSITIVITY (01/26/2018 10:20 PM) Component Value Ref Range Battery Name BLOOD CULTURE Specimen Description BLOOD LEFT HAND Special Requests NONE Culture POSITIVE SMEAR: GRAM POSITIVE COCCI RESEMBLING STAPHYLOCOCCI one bottle only CRITICAL VALUE CALLED TO AND READ BACK BY/TIME/TECH Tamiko Gregg/ [id number]/ND STAPHYLOCOCCUS, COAGULASE NEGATIVE , probable contamination. Susceptibility performed only by special request. Report Status FINAL 02/01/2018 Specimen Performing Laboratory Blood [facility] [address] [place] [address] 54605 * POC GLUCOSE (01/26/2018 9:02 PM) Component Value Ref Range Glucose, POC 217 (H) 70 - 100 MG/DL Specimen Performing Laboratory [facility] [address] [place], [place] [phone] * POC GLUCOSE (01/26/2018 6:12 PM) Component Value Ref Range Glucose, POC 175 (H) 70 - 100 MG/DL Specimen Performing Laboratory [facility] [address] [place], [place] [phone] * POC GLUCOSE (01/26/2018 5:00 PM) Component Value Ref Range Glucose, POC 201 (H) 70 - 100 MG/DL Specimen Performing Laboratory [facility] [address] [place], [place] [phone] * POC GLUCOSE (01/26/2018 12:53 PM) Component Value Ref Range Glucose, POC 229 (H) 70 - 100 MG/DL Specimen Performing Laboratory [facility] [address] [place], [place] [phone] * POC GLUCOSE (01/26/2018 6:29 AM) Component Value Ref Range Glucose, POC 179 (H) 70 - 100 MG/DL Specimen Performing Laboratory [facility] [address] [place], [place] [phone] * CBC CELLULAR THERAPEUTICS (01/26/2018 5:00 AM) Component Value Ref Range White Blood Cells 11.6 (H) 4.5 - 11.0 K/UL RBC 2.88 (L) 4.0 - 5.0 M/UL Hemoglobin 7.6 (L) 12.0 - 15.0 GM/DL Hematocrit 23.5 (L) 36 - 45 % MCV 81.7 80 - 100 FL MCH 26.5 26 - 34 PG MCHC 32.4 32.0 - 36.0 G/DL RDW 18.7 (H) 11 - 15 % Platelet Count 532 (H) 150 - 400 K/UL MPV 7.2 7 - 11 FL Specimen Performing Laboratory Blood [facility] [address] [place] [address]478 * BASIC METABOLIC PANEL CELLULAR THERAPEUTICS (01/26/2018 5:00 AM) Component Value Ref Range Sodium 134 (L) 137 - 147 MMOL/L Potassium 4.3 3.5 - 5.1 MMOL/L Chloride 99 98 - 110 MMOL/L CO2 29 21 - 30 MMOL/L Anion Gap 6 3 - 12 Glucose 222 (H) 70 - 100 MG/DL Blood Urea Nitrogen 15 7 - 25 MG/DL Creatinine 0.59 0.4 - 1.00 MG/DL Calcium 8.4 (L) 8.5 - 10.6 MG/DL eGFR Non [...] Pharmacist for questions. Specimen Performing Laboratory Blood [facility] [address] [place] [address] 9[address]60 * POC GLUCOSE (01/26/2018 3:37 AM) Component Value Ref Range Glucose, POC 218 (H) 70 - 100 MG/DL Specimen Performing Laboratory [facility] [address] [place] [address] 28549 * POC GLUCOSE (01/25/2018 9:26 PM) Component Value Ref Range Glucose, POC 163 (H) 70 - 100 MG/DL Specimen Performing Laboratory [facility] [address] [place] [address] * POC GLUCOSE (01/25/2018 4:58 PM) Component Value Ref Range Glucose, POC 292 (H) 70 - 100 MG/DL Specimen Performing Laboratory [facility] [address] [place] [address]1993 * POC GLUCOSE (01/25/2018 11:51 AM) Component Value Ref Range Glucose, POC 212 (H) 70 - 100 MG/DL Specimen Performing Laboratory [facility] [address] [place] [id number] * LIVER FUNCTION PANEL (01/25/2018 10:57 AM) Component Value Ref Range Total Bilirubin 0.2 (L) 0.3 - 1.2 MG/DL Bilirubin, Direct <0.1 <0.4 MG/DL Albumin 2.4 (L) 3.5 - 5.0 G/DL Alk Phosphatase 134 (H) 25 - 110 U/L AST (SGOT) 41 (H) 7 - 40 U/L ALT (SGPT) 68 (H) 7 - 56 U/L Total Protein 5.6 (L) 6.0 - 8.0 G/DL Specimen Performing Laboratory Blood [facility] [address] [place] [address] * CBC AND DIFF (01/25/2018 10:57 AM) Component Value Ref Range White Blood Cells 10.7 4.5 - 11.0 K/UL RBC 3.54 (L) 4.0 - 5.0 M/UL Hemoglobin 9.6 (L) 12.0 - 15.0 GM/DL Hematocrit 28.5 (L) 36 - 45 % MCV 80.4 80 - 100 FL MCH 27.2 26 - 34 PG MCHC 33.8 32.0 - 36.0 G/DL RDW 19.1 (H) 11 - 15 % Platelet Count 477 (H) 150 - 400 K/UL MPV 7.0 7 - 11 FL Neutrophils 70 41 - 77 % Lymphocytes 9 (L) 24 - 44 % Monocytes 12 4 - 12 % Eosinophils 8 (H) 0 - 5 % Basophils 1 0 - 2 % Absolute Neutrophil Count 7.60 (H) 1.8 - 7.0 K/UL Absolute Lymph Count 1.00 1.0 - 4.8 K/UL Absolute Monocyte Count 1.30 (H) 0 - 0.80 K/UL Absolute Eosinophil Count 0.90 (H) 0 - 0.45 K/UL Absolute Basophil Count 0.10 0 - 0.20 K/UL Specimen Performing Laboratory [facility] [facility] [address] [place], [place] [id number] * POC GLUCOSE (01/25/2018 6:55 AM) Component Value Ref Range Glucose, POC 172 (H) 70 - 100 MG/DL Specimen Performing Laboratory MAIN LAB [address] [place], [place] [id number] * FREE T4-FREE THYROXINE (01/25/2018 5:46 AM) Component Value Ref Range T4-Free 0.8 0.6 - 1.6 NG/DL Specimen Performing Laboratory [facility] [address] [place], [place] [id number] * TSH WITH FREE T4 REFLEX (01/25/2018 5:46 AM) Component Value Ref Range TSH 10.130 (H) 0.35 - 5.00 MCU/ML Specimen Performing Laboratory Blood [facility] [address] [place], [place] [id number] * POC GLUCOSE (01/25/2018 3:20 AM) Component Value Ref Range Glucose, POC 214 (H) 70 - 100 MG/DL Specimen Performing Laboratory [facility] [address] [place] [address] * POC GLUCOSE (01/24/2018 9:01 PM) Component Value Ref Range Glucose, POC 150 (H) 70 - 100 MG/DL Specimen Performing Laboratory [place] [id number] * POC GLUCOSE (01/24/2018 4:54 PM) Component Value Ref Range Glucose, POC 147 (H) 70 - 100 MG/DL Specimen Performing Laboratory [facility] [address] [place], [place] [id number] * POC GLUCOSE (01/24/2018 11:51 AM) Component Value Ref Range Glucose, POC 202 (H) 70 - 100 MG/DL Specimen Performing Laboratory [facility] [address] [place], [place] [id number] * POC GLUCOSE (01/24/2018 6:51 AM) Component Value Ref Range Glucose, POC 175 (H) 70 - 100 MG/DL Specimen Performing Laboratory [facility] [address] [place] [address] * LIVER FUNCTION PANEL (01/24/2018 5:42 AM) Component Value Ref Range Total Bilirubin 0.2 (L) 0.3 - 1.2 MG/DL Bilirubin, Direct <0.1 <0.4 MG/DL Albumin 2.4 (L) 3.5 - 5.0 G/DL Alk Phosphatase 137 (H) 25 - 110 U/L AST (SGOT) 104 (H) 7 - 40 U/L ALT (SGPT) 97 (H) 7 - 56 U/L Total Protein 5.7 (L) 6.0 - 8.0 G/DL Specimen Performing Laboratory MA[facility] [address] [place] [address] * PREALBUMIN (01/24/2018 5:42 AM) Component Value Ref Range Prealbumin 11.0 (L) 17 - 34 MG/DL Specimen Performing Laboratory Blood [facility]IN [facility] [address] [place] [address] * CBC CELLULAR THERAPEUTICS (01/24/2018 5:42 AM) Component Value Ref Range White Blood Cells 12.1 (H) 4.5 - 11.0 K/UL RBC 2.98 (L) 4.0 - 5.0 M/UL Hemoglobin 8.0 (L) 12.0 - 15.0 GM/DL Hematocrit 24.4 (L) 36 - 45 % MCV 82.0 80 - 100 FL MCH 27.0 26 - 34 PG MCHC 32.9 32.0 - 36.0 G/DL RDW 17.9 (H) 11 - 15 % Platelet Count 430 (H) 150 - 400 K/UL MPV 7.3 7 - 11 FL Specimen Performing Laboratory Blood [facility] LAB [address] [place] [address] * BASIC METABOLIC PANEL CELLULAR THERAPEUTICS (01/24/2018 5:42 AM) Component Value Ref Range Sodium 136 (L) 137 - 147 MMOL/L Potassium 4.4 3.5 - 5.1 MMOL/L Chloride 100 98 - 110 MMOL/L CO2 29 21 - 30 MMOL/L Anion Gap 7 3 - 12 Glucose 230 (H) 70 - 100 MG/DL Blood Urea Nitrogen 16 7 - 25 MG/DL Creatinine 0.55 0.4 - 1.00 MG/DL Calcium 8.8 8.5 - 10.6 MG/DL eGFR Non >60 [...] Specimen Performing Laboratory Blood [facility]IN LAB [address] [place] [address] * POC GLUCOSE (01/24/2018 3:32 AM) Component Value Ref Range Glucose, POC 191 (H) 70 - 100 MG/DL Specimen Performing Laboratory [address] [address] * POC GLUCOSE (01/23/2018 8:53 PM) Component Value Ref Range Glucose, POC 211 (H) 70 - 100 MG/DL Specimen Performing Laboratory [address] [address] * POC GLUCOSE (01/23/2018 4:56 PM) Component Value Ref Range Glucose, POC 195 (H) 70 - 100 MG/DL Specimen Performing Laboratory [address] [address] * POC GLUCOSE (01/23/2018 12:04 PM) Component Value Ref Range Glucose, POC 262 (H) 70 - 100 MG/DL Specimen Performing Laboratory [address] [address] * POC GLUCOSE (01/23/2018 8:23 AM) Component Value Ref Range Glucose, POC 261 (H) 70 - 100 MG/DL Specimen Performing Laboratory [address] [address] * POC GLUCOSE (01/23/2018 6:47 AM) Component Value Ref Range Glucose, POC 209 (H) 70 - 100 MG/DL Specimen Performing Laboratory [address] [address] * POC GLUCOSE (01/23/2018 3:28 AM) Component Value Ref Range Glucose, POC 284 (H) 70 - 100 MG/DL Specimen Performing Laboratory [address] [address] * POC GLUCOSE (01/22/2018 8:52 PM) Component Value Ref Range Glucose, POC 133 (H) 70 - 100 MG/DL Specimen Performing Laboratory [address] [address] * POC GLUCOSE (01/22/2018 5:13 PM) Component Value Ref Range Glucose, POC 114 (H) 70 - 100 MG/DL Specimen Performing Laboratory [facility] [address] [place] [address] * POC GLUCOSE (01/22/2018 12:11 PM) Component Value Ref Range Glucose, POC 183 (H) 70 - 100 MG/DL Specimen Performing Laboratory [facility] [address] [place] [address] * POC GLUCOSE (01/22/2018 8:06 AM) Component Value Ref Range Glucose, POC 138 (H) 70 - 100 MG/DL Specimen Performing Laboratory [facility] [address] [place] [address] * POC GLUCOSE (01/22/2018 7:03 AM) Component Value Ref Range Glucose, POC 165 (H) 70 - 100 MG/DL Specimen Performing Laboratory [facility] [address] [place] [address] * POC GLUCOSE (01/22/2018 3:02 AM) Component Value Ref Range Glucose, POC 225 (H) 70 - 100 MG/DL Specimen Performing Laboratory [facility] [address] [place] [address] * POC GLUCOSE (01/21/2018 9:46 PM) Component Value Ref Range Glucose, POC 179 (H) 70 - 100 MG/DL Specimen Performing Laboratory [facility] [address] [place], [place] [id number] * LACTIC ACID(LACTATE) (01/21/2018 9:30 PM) Component Value Ref Range Lactic Acid 1.4 0.5 - 2.0 MMOL/L Specimen Performing Laboratory [address] [address] * CULTURE-BLOOD W/SENSITIVITY (01/21/2018 5:42 PM) Component Value Ref Range Battery Name BLOOD CULTURE Specimen Description BLOOD LEFT FA Special Requests NONE Culture NO GROWTH 5 DAYS Report Status FINAL 01/27/2018 Specimen Performing Laboratory Blood [address] [address] * POC GLUCOSE (01/21/2018 4:55 PM) Component Value Ref Range Glucose, POC 243 (H) 70 - 100 MG/DL Specimen Performing Laboratory [facility] [address] [place], [place] [id number] * UA REFLEX CULTURE LABEL (01/21/2018 4:40 PM) Component Value Ref Range UA Reflex Culture LAB LABEL Specimen Performing Laboratory Urine [place] [id number] * URINALYSIS MICROSCOPIC REFLEX TO CULTURE (01/21/2018 4:40 PM) Component Value Ref Range WBCs,UA 2-10 0 - 2 /HPF RBCs,UA 0-2 0 - 3 /HPF Comment,UA Urine submitted for reflex culture if criteria are met:WBC>10, positive nitrite and/or >=1+ leukocyte esterase. If quantity is not sufficient, an addendum will follow. Squamous Epithelial Cells 0-2 0 - 5 Specimen Performing Laboratory Urine [facility] [address] [place] [address] * URINALYSIS DIPSTICK REFLEX TO CULTURE (01/21/2018 4:40 PM) Component Value Ref Range Color,UA YELLOW Turbidity,UA CLEAR CLEAR-CLEAR Specific [place]-Urine 1.018 1.003 - 1.035 pH,UA 6.0 5.0 - 8.0 Protein,UA NEG NEG-NEG Glucose,UA 1+ (A) NEG-NEG Ketones,UA NEG NEG-NEG Bilirubin,UA NEG NEG-NEG Blood,UA NEG NEG-NEG Urobilinogen,UA NORMAL NORM-NORMAL Nitrite,UA NEG NEG-NEG Leukocytes,UA NEG NEG-NEG Urine Ascorbic Acid, UA POS (A) NEG-NEG Comment: Ascorbic acid is found in various food supplies and dietary supplements, and is reported to cause strong interference with Macroscopic Urinalysis testing for glucose, blood and nitrite, and can result in a false negative result. Specimen Performing Laboratory Urine [facility] [address] [place] [address] * CULTURE-BLOOD W/SENSITIVITY (01/21/2018 4:35 PM) Component Value Ref Range Battery Name BLOOD CULTURE Specimen Description BLOOD RIGHT PICC LINE Special Requests NONE Culture NO GROWTH 5 DAYS Report Status FINAL 01/27/2018 Specimen Performing Laboratory Blood [facility] [address] [place] [address] * ABDOMEN AP ONLY (01/21/2018 3:27 PM) Specimen Performing Laboratory [facility] RAD RESULTS [...] Macias M.D. on 01/21/2018 4:06 PM. * POC GLUCOSE (01/21/2018 11:55 AM) Component Value Ref Range Glucose, POC 220 (H) 70 - 100 MG/DL Specimen Performing Laboratory [facility] [address] [place] [address] * POC GLUCOSE (01/21/2018 6:28 AM) Component Value Ref Range Glucose, POC 174 (H) 70 - 100 MG/DL Specimen Performing Laboratory [facility] [address] [place] [address] * CBC CELLULAR THERAPEUTICS (01/21/2018 6:20 AM) Component Value Ref Range White Blood Cells 11.0 4.5 - 11.0 K/UL RBC 3.01 (L) 4.0 - 5.0 M/UL Hemoglobin 8.5 (L) 12.0 - 15.0 GM/DL Hematocrit 24.5 (L) 36 - 45 % MCV 81.4 80 - 100 FL MCH 28.1 26 - 34 PG MCHC 34.5 32.0 - 36.0 G/DL RDW 17.4 (H) 11 - 15 % Platelet Count 421 (H) 150 - 400 K/UL MPV 6.9 (L) 7 - 11 FL Specimen Performing Laboratory Blood [facility] [address] [place] [address] * BASIC METABOLIC PANEL CELLULAR THERAPEUTICS (01/21/2018 6:20 AM) Component Value Ref Range Sodium 137 137 - 147 MMOL/L Potassium 4.3 3.5 - 5.1 MMOL/L Chloride 101 98 - 110 MMOL/L CO2 30 21 - 30 MMOL/L Anion Gap 6 3 - 12 Glucose 174 (H) 70 - 100 MG/DL Blood Urea Nitrogen 16 7 - 25 MG/DL Creatinine 0.55 0.4 - 1.00 MG/DL Calcium 8.7 8.5 - 10.6 MG/DL eGFR Non >60 [...] Pharmacist for questions. Specimen Performing Laboratory Blood [facility] [address] [place] [address] * POC GLUCOSE (01/21/2018 3:35 AM) Component Value Ref Range Glucose, POC 256 (H) 70 - 100 MG/DL Specimen Performing Laboratory [facility] [address] [place] [address] * POC GLUCOSE (01/21/2018 3:02 AM) Component Value Ref Range Glucose, POC 50 (L) 70 - 100 MG/DL Specimen Performing Laboratory [facility] [address] [place] [address] * POC GLUCOSE (01/20/2018 9:02 PM) Component Value Ref Range Glucose, POC 167 (H) 70 - 100 MG/DL Specimen Performing Laboratory [facility] [address] [place] [address] * POC GLUCOSE (01/20/2018 5:00 PM) Component Value Ref Range Glucose, POC 164 (H) 70 - 100 MG/DL Specimen Performing Laboratory [facility] [address] [place] [address] * POC GLUCOSE (01/20/2018 11:58 AM) Component Value Ref Range Glucose, POC 199 (H) 70 - 100 MG/DL Specimen Performing Laboratory [facility] [address] [place] [address] * POC GLUCOSE (01/20/2018 7:12 AM) Component Value Ref Range Glucose, POC 169 (H) 70 - 100 MG/DL Specimen Performing Laboratory [facility] [address] [place] [address] * POC GLUCOSE (01/20/2018 3:25 AM) Component Value Ref Range Glucose, POC 171 (H) 70 - 100 MG/DL Specimen Performing Laboratory [facility] [address] [place] [address] * POC GLUCOSE (01/20/2018 12:57 AM) Component Value Ref Range Glucose, POC 160 (H) 70 - 100 MG/DL Specimen Performing Laboratory [facility] [address] [place] [address] * POC GLUCOSE (01/19/2018 9:20 PM) Component Value Ref Range Glucose, POC 118 (H) 70 - 100 MG/DL Specimen Performing Laboratory [facility] [address] [place] [address] * POC GLUCOSE (01/19/2018 4:56 PM) Component Value Ref Range Glucose, POC 109 (H) 70 - 100 MG/DL Specimen Performing Laboratory [facility] [address] [place] [address] * POC GLUCOSE (01/19/2018 11:53 AM) Component Value Ref Range Glucose, POC 194 (H) 70 - 100 MG/DL Specimen Performing Laboratory [facility] [address] [place] [address] * POC GLUCOSE (01/19/2018 7:15 AM) Component Value Ref Range Glucose, POC 233 (H) 70 - 100 MG/DL Specimen Performing Laboratory [facility] [address] [place], [place] [id number] * BASIC METABOLIC PANEL CELLULAR THERAPEUTICS (01/19/2018 5:30 AM) Component Value Ref Range Sodium 135 (L) 137 - 147 MMOL/L Potassium 4.5 3.5 - 5.1 MMOL/L Chloride 101 98 - 110 MMOL/L CO2 27 21 - 30 MMOL/L Anion Gap 7 3 - 12 Glucose 250 (H) 70 - 100 MG/DL Blood Urea Nitrogen 13 7 - 25 MG/DL Creatinine 0.51 0.4 - 1.00 MG/DL Calcium 8.5 8.5 - 10.6 MG/DL eGFR Non >60 [...] Pharmacist for questions. Specimen Performing Laboratory Blood [facility] [address] [place] [address] * CBC CELLULAR THERAPEUTICS (01/19/2018 5:30 AM) Component Value Ref Range White Blood Cells 10.9 4.5 - 11.0 K/UL RBC 2.95 (L) 4.0 - 5.0 M/UL Hemoglobin 8.4 (L) 12.0 - 15.0 GM/DL Hematocrit 24.5 (L) 36 - 45 % MCV 83.0 80 - 100 FL MCH 28.5 26 - 34 PG MCHC 34.3 32.0 - 36.0 G/DL RDW 16.8 (H) 11 - 15 % Platelet Count 414 (H) 150 - 400 K/UL MPV 6.6 (L) 7 - 11 FL Specimen Performing Laboratory Blood [facility] [address] [place], [place] [id number] * POC GLUCOSE (01/19/2018 3:17 AM) Component Value Ref Range Glucose, POC 218 (H) 70 - 100 MG/DL Specimen Performing Laboratory [facility] [address] [place] [address] * POC GLUCOSE (01/18/2018 8:59 PM) Component Value Ref Range Glucose, POC 192 (H) 70 - 100 MG/DL Specimen Performing Laboratory [facility] [address] [place] [address] * POC GLUCOSE (01/18/2018 4:58 PM) Component Value Ref Range Glucose, POC 270 (H) 70 - 100 MG/DL Specimen Performing Laboratory [facility] [address] [place] [address] * POC GLUCOSE (01/18/2018 12:06 PM) Component Value Ref Range Glucose, POC 161 (H) 70 - 100 MG/DL Specimen Performing Laboratory [facility] [address] [place] [address] * POC GLUCOSE (01/18/2018 6:53 AM) Component Value Ref Range Glucose, POC 180 (H) 70 - 100 MG/DL Specimen Performing Laboratory [facility] [address] [place] [address] * BASIC METABOLIC PANEL CELLULAR THERAPEUTICS (01/18/2018 6:01 AM) Component Value Ref Range Sodium 135 (L) 137 - 147 MMOL/L Potassium 4.2 3.5 - 5.1 MMOL/L Chloride 100 98 - 110 MMOL/L CO2 29 21 - 30 MMOL/L Anion Gap 6 3 - 12 Glucose 191 (H) 70 - 100 MG/DL Blood Urea Nitrogen 15 7 - 25 MG/DL Creatinine 0.51 0.4 - 1.00 MG/DL Calcium 8.6 8.5 [...] Specimen Performing Laboratory Blood [facility] [address] [place] [address] * CBC CELLULAR THERAPEUTICS (01/18/2018 6:01 AM) Component Value Ref Range White Blood Cells 10.9 4.5 - 11.0 K/UL RBC 3.15 (L) 4.0 - 5.0 M/UL Hemoglobin 8.7 (L) 12.0 - 15.0 GM/DL Hematocrit 26.4 (L) 36 - 45 % MCV 83.9 80 - 100 FL MCH 27.6 26 - 34 PG MCHC 32.9 32.0 - 36.0 G/DL RDW 16.7 (H) 11 - 15 % Platelet Count 379 150 - 400 K/UL MPV 6.4 (L) 7 - 11 FL Specimen Performing Laboratory Blood [facility] [address] [place] [address] * POC GLUCOSE (01/18/2018 3:21 AM) Component Value Ref Range Glucose, POC 248 (H) 70 - 100 MG/DL Specimen Performing Laboratory [facility] [address] [place] [address] * POC GLUCOSE (01/17/2018 9:00 PM) Component Value Ref Range Glucose, POC 136 (H) 70 - 100 MG/DL Specimen Performing Laboratory [facility] [address] [place] [address] * POC GLUCOSE (01/17/2018 4:53 PM) Component Value Ref Range Glucose, POC 196 (H) 70 - 100 MG/DL Specimen Performing Laboratory [facility] [address] [place] [address] * PREALBUMIN (01/17/2018 1:11 PM) Component Value Ref Range Prealbumin 13.0 (L) 17 - 34 MG/DL Specimen Performing Laboratory Blood [facility] LAB [address] [place] [address] * ALBUMIN (01/17/2018 1:11 PM) Component Value Ref Range Albumin 2.6 (L) 3.5 - 5.0 G/DL Specimen Performing Laboratory Blood [facility] [address] [place] [address] * POC GLUCOSE (01/17/2018 12:31 PM) Component Value Ref Range Glucose, POC 141 (H) 70 - 100 MG/DL Specimen Performing Laboratory [facility] [address] [place] [address] * POC GLUCOSE (01/17/2018 11:45 AM) Component Value Ref Range Glucose, POC 157 (H) 70 - 100 MG/DL Specimen Performing Laboratory [facility] [address] [place] [address] * POC GLUCOSE (01/17/2018 6:44 AM) Component Value Ref Range Glucose, POC 167 (H) 70 - 100 MG/DL Specimen Performing Laboratory [facility] [address] [place] [address] * BASIC METABOLIC PANEL CELLULAR THERAPEUTICS (01/17/2018 5:30 AM) Component Value Ref Range Sodium 135 (L) 137 - 147 MMOL/L Potassium 4.4 3.5 - 5.1 MMOL/L Chloride 101 98 - 110 MMOL/L CO2 29 21 - 30 MMOL/L Anion Gap 5 3 - 12 Glucose 192 (H) 70 - 100 MG/DL Blood Urea Nitrogen 15 7 - 25 MG/DL Creatinine 0.58 0.4 - 1.00 MG/DL Calcium 8.6 8.5 [...] Pharmacist for questions. Specimen Performing Laboratory Blood [facility] [address] [place] [address] * CBC CELLULAR THERAPEUTICS (01/17/2018 5:30 AM) Component Value Ref Range White Blood Cells 10.3 4.5 - 11.0 K/UL RBC 3.10 (L) 4.0 - 5.0 M/UL Hemoglobin 8.9 (L) 12.0 - 15.0 GM/DL Hematocrit 25.7 (L) 36 - 45 % MCV 82.9 80 - 100 FL MCH 28.6 26 - 34 PG MCHC 34.5 32.0 - 36.0 G/DL RDW 17.2 (H) 11 - 15 % Platelet Count 465 (H) 150 - 400 K/UL MPV 7.1 7 - 11 FL Specimen Performing Laboratory Blood [facility] [address] [place] [address] * POC GLUCOSE (01/17/2018 3:01 AM) Component Value Ref Range Glucose, POC 181 (H) 70 - 100 MG/DL Specimen Performing Laboratory [facility] [address] [place] [address] * POC GLUCOSE (01/16/2018 9:08 PM) Component Value Ref Range Glucose, POC 145 (H) 70 - 100 MG/DL Specimen Performing Laboratory [facility] [address] [place] [address] * POC GLUCOSE (01/16/2018 4:50 PM) Component Value Ref Range Glucose, POC 149 (H) 70 - 100 MG/DL Specimen Performing Laboratory [facility] [address] [place] [address] * POC GLUCOSE (01/16/2018 12:04 PM) Component Value Ref Range Glucose, POC 168 (H) 70 - 100 MG/DL Specimen Performing Laboratory [facility] [address] [place] [address] * POC GLUCOSE (01/16/2018 6:36 AM) Component Value Ref Range Glucose, POC 209 (H) 70 - 100 MG/DL Specimen Performing Laboratory [facility] [address] [place] [address] * BASIC METABOLIC PANEL CELLULAR THERAPEUTICS (01/16/2018 5:30 AM) Component Value Ref Range Sodium 134 (L) 137 - 147 MMOL/L Potassium 4.4 3.5 - 5.1 MMOL/L Chloride 100 98 - 110 MMOL/L CO2 28 21 - 30 MMOL/L Anion Gap 6 3 - 12 Glucose 251 (H) 70 - 100 MG/DL Blood Urea Nitrogen 13 7 - 25 MG/DL Creatinine 0.58 0.4 - 1.00 MG/DL Calcium 8.6 8.5 [...] questions. Specimen Performing Laboratory Blood MAIN LAB [address] [place] [address] * CBC CELLULAR THERAPEUTICS (01/16/2018 5:30 AM) Component Value Ref Range White Blood Cells 10.4 4.5 - 11.0 K/UL RBC 3.15 (L) 4.0 - 5.0 M/UL Hemoglobin 8.8 (L) 12.0 - 15.0 GM/DL Hematocrit 26.5 (L) 36 - 45 % MCV 83.9 80 - 100 FL MCH 27.8 26 - 34 PG MCHC 33.1 32.0 - 36.0 G/DL RDW 16.9 (H) 11 - 15 % Platelet Count 527 (H) 150 - 400 K/UL MPV 6.4 (L) 7 - 11 FL Specimen Performing Laboratory Blood [facility]IN LAB [address] [place] [address] * POC GLUCOSE (01/16/2018 3:45 AM) Component Value Ref Range Glucose, POC 204 (H) 70 - 100 MG/DL Specimen Performing Laboratory MAIN [facility] [address] [place] [address] * TRANSFUSE RBC'S NON-BLEEDING PT (01/15/2018 11:39 PM) Specimen Performing Laboratory Blood * TRANSFUSE RBC'S NON-BLEEDING PT (01/15/2018 11:39 PM) Specimen Performing Laboratory Blood * POC GLUCOSE (01/15/2018 8:23 PM) Component Value Ref Range Glucose, POC 193 (H) 70 - 100 MG/DL Specimen Performing Laboratory [facility] [address] [place] [address] * POC GLUCOSE (01/15/2018 4:48 PM) Component Value Ref Range Glucose, POC 243 (H) 70 - 100 MG/DL Specimen Performing Laboratory [facility] [address] [place] [address] * TYPE & CROSSMATCH (01/15/2018 3:00 PM) Component Value Ref Range Units Ordered 1 Crossmatch Expires 01/18/2018 Record Check FOUND ABO/RH(D) A POS Antibody Screen NEG Electronic Crossmatch YES Unit Number [id number] Blood Component Type RBC,ADSOL,LEUKO REDUCED Unit Division 0 Status OF Unit TRANSFUSED Transfusion Status OK TO TRANSFUSE Crossmatch Result COMPATIBLE,ELECTRONIC Specimen Performing Laboratory Blood MAIN LAB [address] [place] [address] * POC GLUCOSE (01/15/2018 11:53 AM) Component Value Ref Range Glucose, POC 165 (H) 70 - 100 MG/DL Specimen Performing Laboratory MA[facility] [address] [place] [address] 19293 * POC GLUCOSE (01/15/2018 7:14 AM) Component Value Ref Range Glucose, POC 192 (H) 70 - 100 MG/DL Specimen Performing Laboratory [facility] [address] [place], [place] [id number] * BASIC METABOLIC PANEL CELLULAR THERAPEUTICS (01/15/2018 6:00 AM) Component Value Ref Range Sodium 135 (L) 137 - 147 MMOL/L Potassium 4.1 3.5 - 5.1 MMOL/L Chloride 100 98 - 110 MMOL/L CO2 29 21 - 30 MMOL/L Anion Gap 6 3 - 12 Glucose 177 (H) 70 - 100 MG/DL Blood Urea Nitrogen 12 7 - 25 MG/DL Creatinine 0.58 0.4 - 1.00 MG/DL Calcium 8.3 (L) [...] Specimen Performing Laboratory Blood [facility]IN LAB [address] [place] [address] * CBC CELLULAR THERAPEUTICS (01/15/2018 6:00 AM) Component Value Ref Range White Blood Cells 11.5 (H) 4.5 - 11.0 K/UL RBC 2.30 (L) 4.0 - 5.0 M/UL Hemoglobin 6.5 (L) 12.0 - 15.0 GM/DL Hematocrit 19.2 (L) 36 - 45 % MCV 83.7 80 - 100 FL MCH 28.4 26 - 34 PG MCHC 33.9 32.0 - 36.0 G/DL RDW 16.8 (H) 11 - 15 % Platelet Count 662 (H) 150 - 400 K/UL MPV 6.5 (L) 7 - 11 FL Specimen Performing Laboratory Blood [facility] [address] [place] [address] 9[address]48 * POC GLUCOSE (01/15/2018 12:03 AM) Component Value Ref Range Glucose, POC 145 (H) 70 - 100 MG/DL Specimen Performing Laboratory [facility] [address] [place] [address]16 * POC GLUCOSE (01/14/2018 9:14 PM) Component Value Ref Range Glucose, POC 103 (H) 70 - 100 MG/DL Specimen Performing Laboratory [facility] [address] [place] [address]254 * POC GLUCOSE (01/14/2018 4:57 PM) Component Value Ref Range Glucose, POC 97 70 - 100 MG/DL Specimen Performing Laboratory MA[facility] [address] [place] [address] in this encounter Visit Diagnoses Diagnosis Left hip amputation status - Primary Type 2 diabetes mellitus with hyperglycemia, 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 (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) Acquired hypothyroidism Unspecified hypothyroidism On enteral nutrition Other specified conditions influencing health status 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 Acute blood loss as cause of postoperative anemia Depression Depressive disorder, not elsewhere classified Anxiety Anxiety state, unspecified DM (diabetes mellitus) (HCC) Type II or unspecified type diabetes mellitus without mention of complication , not stated as uncontrolled 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 Unspecified hypothyroidism Post-op pain Other acute postoperative pain Bacteremia Amputated left leg (HCC) Lower limb amputation, unspecified level Candiduria Candidiasis of other urogenital sites Chronic pain Other chronic pain Admitting Diagnoses Diagnosis Acquired absence of left hip joint Amputation of leg (HCC) Administered Medications Medication Order MAR Action Action Date Dose Rate Site acetaminophen (TYLENOL) tablet 1,000 mg Given 01/20/2018 1,000 mg 1,000 mg, Oral, EVERY 8 HOURS, First 22:32 CDT dose on Wed01/14/18 at 2200, Until Discontinued, Acetaminophen not to exceed 4g per 24 hours from all sources. Given 01/21/2018 1,000 mg 06:22 CDT Given 01/21/2018 1,000 mg 14:41 CDT acetaminophen (TYLENOL) tablet 650 mg Given 02/27/2018 650 mg 650 mg, Oral, EVERY 6 HOURS PRN, 11:36 CDT Starting Wed01/21/18 at 1530, Until Wed03/02/18 at 1856, Pain non-opioid: may be used alone or in combination with opioid analgesia, Acetaminophen not to exceed 4g per 24 hours from all sources. Given 02/27/2018 650 mg 21:52 CDT Given 03/01/2018 650 mg 00:48 CDT alteplase (CATHFLO ACTIVASE) injection 2 Given 01/18/2018 2 mg mg 04:43 CDT 2 mg, Injection, ONCE, 1 dose, 01/18/18 at 0430 alteplase (CATHFLO ACTIVASE) injection 2 Given 02/12/2018 4 mg mg 11:04 CDT 2 mg, Intra-catheter, NEEDED ([employer]), Starting 02/12/18 at 1040, Until 02/28/18 at 0139, Clotted vascular access alum/mag hydroxide/simeth (MYLANTA, Given 01/23/2018 30 mL MAALOX PLUS) oral suspension 30 mL 22:34 CDT 30 mL, Oral, EVERY 6 HOURS PRN, Starting Wed01/14/18 at 1623, Until Wed02/18/18 at 1649, Indigestion/Heartburn Given 02/08/2018 30 mL 23:08 CDT Given 02/17/2018 30 mL 12:30 CDT aluminum/magnesium hydroxide (MAALOX) Given 02/21/2018 30 mL oral suspension 30 mL 15:53 CDT 30 mL, Oral, EVERY 6 HOURS PRN, Starting Wed02/18/18 at 1648, Until Wed03/02/18 at 1856, Indigestion/Heartburn Given 02/22/2018 30 mL 17:37 CDT Given 03/01/2018 30 mL 00:47 CDT aspirin chewable tablet 81 mg Given 02/28/2018 81 mg 81 mg, Oral, DAILY, First dose on Wed 09:33 CDT 01/19/18 at 1230, Until Discontinued Given 03/01/2018 81 mg 09:17 CDT Given 03/02/2018 81 mg 09:16 CDT buPROPion (WELLBUTRIN) tablet 100 mg Given 03/01/2018 100 mg 100 mg, Oral, THREE TIMES DAILY, First 20:32 CDT dose on Wed01/14/18 at 2100, Until Discontinued Given 03/02/2018 100 mg 09:16 CDT Given 03/02/2018 100 mg 15:53 CDT busPIRone (BUSPAR) tablet 30 mg Given 03/01/2018 30 mg 30 mg, Oral, TWICE DAILY, First dose on 09:18 CDT Wed01/14/18 at 2100, Until Discontinued Given 03/01/2018 30 mg 20:33 CDT Given 03/02/2018 30 mg 09:16 CDT calcium carbonate (TUMS) chew tablet Given 02/22/2018 500 mg 500-1,000 mg 18:24 CDT 500-1,000 mg, Oral, EVERY 4 HOURS PRN, Starting Wed01/14/18 at 1623, Until Wed03/02/18 at 1856, Indigestion/Heartburn, Each tab delivers 200mg elemental calcium. Given 02/26/2018 1,000 mg 13:13 CDT Given 03/01/2018 500 mg 15:59 CDT carbamide peroxide (DEBROX) 6.5 % otic Given 02/18/2018 5 drops solution 5 drop 08:05 CDT 5 drop, Both Ears, TWICE DAILY, First dose on Wed02/04/18 at 1230, Until Discontinued Given 02/18/2018 5 drops 20:57 CDT Given 02/19/2018 5 drops 21:03 CDT collagenase (SANTYL) topical ointment Given 02/28/2018 Topical, DAILY, First dose on Wed 09:38 CDT 01/15/18 at 0900, Until Discontinued, Apply to left lower abdominal wound daily. See wound care instructions or wound team note. Given 03/01/2018 09:18 CDT Given 03/02/2018 11:25 CDT diphenhydrAMINE (BENADRYL) capsule 25 mg Given 02/13/2018 25 mg 25 mg, Oral, ONCE, 1 dose, 02/13/18 22:55 CDT at 2230 docusate (COLACE) capsule 100 mg Given 03/01/2018 100 mg 100 mg, Oral, TWICE DAILY, First dose on 09:17 CDT 01/14/18 at 2100, Until Discontinued, Hold for loose stools Given 03/01/2018 100 mg 20:32 CDT Given 03/02/2018 100 mg 09:16 CDT ertapenem (INVANZ) IVP 1 g Given 01/16/2018 1 g 1 g, Intravenous, 10 mL, Administer over 09:37 CDT 5 Minutes, EVERY 24 HOURS, 9 doses, First dose on 01/15/18 at 1200, Last dose on Wed01/23/18 at 1000, Reconstitute each 1 g vial with 10 mL sterile water for injection, administer IV-Push over 5 minutes Given 01/17/2018 1 g 11:15 CDT Given 01/18/2018 1 g 11:29 CDT ertapenem (INVANZ) IVP 1 g Given 01/21/2018 1 g 1 g, Intravenous, 10 mL, Administer over 10:38 CDT 5 Minutes, EVERY 24 HOURS, 5 doses, First dose on Wed01/19/18 at 1100, Last dose on Wed01/23/18 at 1100, Reconstitute each 1 g vial with 10 mL sterile water for injection, administer IV-Push over 5 minutes Given 01/22/2018 1 g 11:50 CDT Given 01/23/2018 1 g 11:42 CDT ertapenem (INVANZ) IVP 1 g Given 01/24/2018 1 g 1 g, Intravenous, 10 mL, Administer over 20:28 CDT 5 Minutes, EVERY 24 HOURS, First dose on 01/24/18 at 2015, Until Discontinued, Reconstitute each 1 g vial with 10 mL sterile water for injection, administer IV-Push over 5 minutes ertapenem (INVANZ) IVP 1 g Given 02/12/2018 1 g 1 g, Intravenous, 10 mL, Administer over 12:21 CDT 5 Minutes, EVERY 24 HOURS, First dose on Wed02/08/18 at 1130, Until Discontinued, Reconstitute each 1 g vial with 10 mL sterile water for injection, administer IV-Push over 5 minutes Given 02/13/2018 1 g 12:02 CDT Given 02/14/2018 1 g 12:12 CDT ertapenem (INVANZ) IVP 1 g Given 02/26/2018 1 g 1 g, Intravenous, 10 mL, Administer over 19:10 CDT 5 Minutes, EVERY 24 HOURS, First dose on 02/26/18 at 1945, Until Discontinued, Reconstitute each 1 g vial with 10 mL sterile water for injection, administer IV-Push over 5 minutes Given 02/27/2018 1 g 20:45 CDT ertapenem (INVANZ) IVP 1 g Given 03/02/2018 1 g 1 g, Intravenous, 10 mL, Administer over 09:29 CDT 5 Minutes, EVERY 24 HOURS, First dose on Wed03/02/18 at 0930, Until Discontinued, Reconstitute each 1 g vial with 10 mL sterile water for injection, administer IV-Push over 5 minutes fentaNYL citrate PF (SUBLIMAZE) Given 01/24/2018 25 mcg injection 25 mcg 11:38 CDT 25 mcg, Intravenous, ONCE, 1 dose, Wed01/24/18 at 1130 fentaNYL citrate PF (SUBLIMAZE) Given 01/24/2018 25 mcg injection 25 mcg 19:55 CDT 25 mcg, Intravenous, ONCE, 1 dose, 01/24/18 at 1530 fentaNYL citrate PF (SUBLIMAZE) Given 01/21/2018 50 mcg injection 50 mcg 11:32 CDT 50 mcg, Intravenous, ONCE, 1 dose, Wed01/21/18 at 1130 fentaNYL citrate PF (SUBLIMAZE) Given 01/21/2018 50 mcg injection 50 mcg 12:44 CDT 50 mcg, Intravenous, ONCE, 1 dose, Wed01/21/18 at 1245 fentaNYL citrate PF (SUBLIMAZE) Given 01/24/2018 50 mcg injection 50 mcg 10:01 CDT 50 mcg, Intravenous, ONCE, 1 dose, 01/24/18 at 1000 ferrous sulfate (FEOSOL, FEROSUL) tablet Given 03/01/2018 325 mg 325 mg 17:48 CDT 325 mg, Oral, THREE TIMES DAILY WITH MEALS, First dose on Wed01/16/18 at 0900, Until Discontinued, Each 325mg ferrous sulfate delivers 65mg elemental iron. Given 03/02/2018 325 mg 09:16 CDT Given 03/02/2018 325 mg 11:30 CDT gabapentin (NEURONTIN) capsule 600 mg Given 03/02/2018 600 mg 600 mg, Oral, EVERY 6 HOURS, First dose 03:27 CDT on Wed02/08/18 at 1030, Until Discontinued Given 03/02/2018 600 mg 09:16 CDT Given 03/02/2018 600 mg 15:53 CDT gabapentin (NEURONTIN) capsule 800 mg Given 02/04/2018 800 mg 800 mg, Oral, FOUR TIMES DAILY, First 12:47 CDT dose on Wed01/18/18 at 0900, Until Discontinued Given 02/04/2018 800 mg 16:38 CDT Given 02/04/2018 800 mg 20:40 CDT gabapentin (NEURONTIN) capsule 800 mg Given 02/07/2018 800 mg 800 mg, Oral, EVERY 6 HOURS, First dose 16:20 CDT on Wed02/05/18 at 1000, Until Discontinued Given 02/07/2018 800 mg 21:29 CDT Given 02/08/2018 800 mg 04:32 CDT gabapentin (NEURONTIN) capsule 900 mg Given 01/17/2018 900 mg 900 mg, Oral, EVERY 8 HOURS, First dose 14:43 CDT on Wed01/14/18 at 2200, Until Discontinued Given 01/17/2018 900 mg 21:48 CDT Given 01/18/2018 900 mg 06:10 CDT HYDROmorphone injection (DILAUDID) Given 01/17/2018 1 mg injection 1 mg 09:52 CDT 1 mg, Intravenous, THREE TIMES WEEKLY (Once per day on Wed), First dose on Wed01/17/18 at 0900, Until Discontinued, To be used only with wound vac changes on MWF hydrOXYzine (ATARAX) tablet 12.5 mg Given 01/18/2018 12.5 mg 12.5 mg, Oral, ONCE, 1 dose, Wed01/18/18 13:05 CDT at 1200 insulin aspart U-100 (NOVOLOG FLEXPEN) Given 01/29/2018 4 Units Arm, Right injection PEN 0-14 Units 21:08 CDT 0-14 Units, Subcutaneous, FIVE TIMES DAILY, First dose on Wed01/14/18 at 1700, Until Discontinued, -POC glucose 140-180mg/dL at , , administer 2 units insulin, at , 03* administer 0 units. -POC glucose 181-220mg/dL at , , administer 4 units insulin, at , 03* administer 2 units. -POC glucose 221-260mg/dL at , , administer 6 units insulin, at , * administer 4 units. -POC glucose 261-300mg/dL at , administer 8 units insulin, at , * administer 6 units. -POC glucose 301-350mg/dL at , administer 10 units insulin, at , * administer 8 units. -POC glucose 351-400mg/dL at administer 12 units insulin, at , * administer 10 units. -POC glucose >400mg/dL at administer 14 units insulin, at , * administer 12 units. *only if ordered 5x's daily For POCT glucose >350mg/dL give correction bolus and recheck POCT glucose in 2 hours. If POCT glucose at 2 hours >300mg/dL call physician for further orders. For patients who are not eating meals, continue to administer the appropriate correction factor. NOTE: This is a HIGH ALERT Medication. Given 01/30/2018 2 Units Arm, Right 12:14 CDT Given 01/30/2018 4 Units Arm, Right 17:20 CDT insulin aspart U-100 (NOVOLOG FLEXPEN) Given 02/02/2018 2 Units Arm, Right injection PEN 0-14 Units 18:00 CDT 0-14 Units, Subcutaneous, BEFORE MEALS AND AT BEDTIME, First dose on Wed01/31/18 at 1700, Until Discontinued, -POC glucose 181-220mg/dL at , , administer 2 units insulin, at , 03* administer 0 units. -POC glucose 221-260mg/dL at , administer 4 units insulin, at , 03* administer 2 units. -POC glucose 261-300mg/dL at , , administer 6 units insulin, at , 03* administer 4 units. -POC glucose 301-350mg/dL at 07 administer 8 units insulin, at , 03* administer 6 units. -POC glucose 351-400mg/dL at administer 10 units insulin, at , * administer 8 units. -POC glucose >400mg/dL at administer 12 units insulin, at , * administer 10 units. *only if ordered 5x's daily For POCT glucose >350mg/dL give correction bolus and recheck POCT glucose in 2 hours. If POCT glucose at 2 hours >300mg/dL call physician for further orders. For patients who are not eating meals, continue to administer the appropriate correction factor. NOTE: This is a HIGH ALERT Medication. Given 02/04/2018 2 Units Arm, Left 12:47 CDT Given 02/08/2018 4 Units Arm, Left 18:47 CDT insulin aspart U-100 (NOVOLOG FLEXPEN) Given 02/16/2018 1 Units Arm, Right injection PEN 0-6 Units 11:59 CDT 0-6 Units, Subcutaneous, BEFORE MEALS AND AT BEDTIME, First dose on Wed02/15/18 at 1200, Until Discontinued, -POC glucose 140-180mg/dL at administer 0 unit insulin, at , 03* administer 0 units. -POC glucose 181-220mg/dL at administer 1 units insulin, at , * administer 0 unit. -POC glucose 221-260mg/dL at administer 2 units insulin, at , * administer 1 units. -POC glucose 261-300mg/dL at administer 3 units insulin, at , * administer 2units. -POC glucose 301-350mg/dL at administer 4 units insulin, at , * administer 3 units. -POC glucose 351-400mg/dL at administer 5 units insulin, at , 03* administer 4 units. -POC glucose >400mg/dL at administer 6 units insulin, at , * administer 5 units. *only if ordered 5x's daily For POCT glucose >350mg/dL give correction bolus and recheck POCT glucose in 2 hours. If POCT glucose at 2 hours >300mg/dL call physician for further orders. For patients who are not eating meals, continue to administer the appropriate correction factor. NOTE: This is a HIGH ALERT Medication. Given 02/20/2018 1 Units Abdominal 12:38 CDT Tissue Given 02/23/2018 3 Units Arm, Right 12:35 CDT insulin aspart U-100 (NOVOLOG FLEXPEN) Given 02/14/2018 1 Units Abdominal injection PEN 0-7 Units 12:18 CDT Tissue 0-7 Units, Subcutaneous, BEFORE MEALS AND AT BEDTIME, First dose on Christy 02/10/18 at 1100, Until Discontinued, -POC glucose 140-180mg/dL at , , administer 1 unit insulin, at 21, 03* administer 0 units. -POC glucose 181-220mg/dL at , , administer 2 units insulin, at , 03* administer 1 unit. -POC glucose 221-260mg/dL at , , administer 3 units insulin, at , 03* administer 2 units. -POC glucose 261-300mg/dL at , , administer 4 units insulin, at , 03* administer 3 units. -POC glucose 301-350mg/dL at , , administer 5 units insulin, at , 03* administer 4 units. -POC glucose 351-400mg/dL at , , administer 6 units insulin, at , 03* administer 5 units. -POC glucose >400mg/dL at , , administer 7 units insulin, at , 03* administer 6 units. *only if ordered 5x's daily For POCT glucose >350mg/dL give correction bolus and recheck POCT glucose in 2 hours. If POCT glucose at 2 hours >300mg/dL call physician for further orders. For patients who are not eating meals, continue to administer the appropriate correction factor. NOTE: This is a HIGH ALERT Medication. insulin aspart U-100 (NOVOLOG FLEXPEN) Given 01/23/2018 10 Units Arm, Right injection PEN 10 Units 18:08 CDT 10 Units, Subcutaneous, THREE TIMES DAILY AFTER MEALS, First dose on 01/22/18 at 0900, Until Discontinued, - Post Meal Dosing: give scheduled Aspart (Novolog) insulin at the completion of meal based on % eaten. Adjust dose based on % of meal eaten. - >50% of meal eaten, give scheduled dose - 10-50% of meal eaten, give 1/2 of schedule dose (round dose to the nearest unit) - <10% of meal eaten, hold scheduled dose. NOTE: Rapid acting insulins should be given with food/meal. Use caution when patient is NPO. NOTE: This is a HIGH ALERT Medication. Given 01/24/2018 10 Units Arm, Right 09:38 CDT Given 01/24/2018 10 Units Arm, Right 14:09 CDT insulin aspart U-100 (NOVOLOG FLEXPEN) Given 02/01/2018 10 Units Arm, Right injection PEN 10 Units 08:46 CDT 10 Units, Subcutaneous, THREE TIMES DAILY WITH MEALS, First dose on Wed02/01/18 at 0800, Until Discontinued, Hold if NPO for procedure, unable to eat, or if FSBS < 70 mg/dL Give at start of meal. NOTE: This is a HIGH ALERT Medication. Given 02/01/2018 10 Units Arm, Left 12:19 CDT insulin aspart U-100 (NOVOLOG FLEXPEN) Given 02/04/2018 10 Units Arm, Right injection PEN 10 Units 12:48 CDT 10 Units, Subcutaneous, THREE TIMES DAILY WITH MEALS, First dose on Wed02/04/18 at 1200, Until Discontinued, Hold if NPO for procedure, unable to eat, or if FSBS < 70 mg/dL Give at start of meal. NOTE: This is a HIGH ALERT Medication. Given 02/04/2018 10 Units Arm, Right 17:37 CDT Given 02/05/2018 10 Units Arm, Right 08:19 CDT insulin aspart U-100 (NOVOLOG FLEXPEN) Given 01/25/2018 12 Units Arm, Right injection PEN 12 Units 08:21 CDT 12 Units, Subcutaneous, THREE TIMES DAILY AFTER MEALS, First dose on Wed01/24/18 at 1900, Until Discontinued, - Post Meal Dosing: give scheduled Aspart (Novolog) insulin at the completion of meal based on % eaten. Adjust dose based on % of meal eaten. - >50% of meal eaten, give scheduled dose - 10-50% of meal eaten, give 1/2 of schedule dose (round dose to the nearest unit) - <10% of meal eaten, hold scheduled dose. NOTE: Rapid acting insulins should be given with food/meal. Use caution when patient is NPO. NOTE: This is a HIGH ALERT Medication. Given 01/25/2018 12 Units Arm, Right 12:35 CDT Given 01/25/2018 12 Units Arm, Right 18:33 CDT insulin aspart U-100 (NOVOLOG FLEXPEN) Given 01/27/2018 14 Units Arm, Left injection PEN 14 Units 08:30 CDT 14 Units, Subcutaneous, THREE TIMES DAILY AFTER MEALS, First dose on Wed01/26/18 at 0900, Until Discontinued, - Post Meal Dosing: give scheduled Aspart (Novolog) insulin at the completion of meal based on % eaten. Adjust dose based on % of meal eaten. - >50% of meal eaten, give scheduled dose - 10-50% of meal eaten, give 1/2 of schedule dose (round dose to the nearest unit) - <10% of meal eaten, hold scheduled dose. NOTE: Rapid acting insulins should be given with food/meal. Use caution when patient is NPO. NOTE: This is a HIGH ALERT Medication. Given 01/27/2018 14 Units Arm, Left 13:20 CDT Given 01/27/2018 14 Units Arm, Left 18:37 CDT insulin aspart U-100 (NOVOLOG FLEXPEN) Given 02/03/2018 14 Units Arm, Right injection PEN 14 Units 12:19 CDT 14 Units, Subcutaneous, THREE TIMES DAILY WITH MEALS, First dose on Wed02/01/18 at 1800, Until Discontinued, Hold if NPO for procedure, unable to eat, or if FSBS < 70 mg/dL Give at start of meal. NOTE: This is a HIGH ALERT Medication. Given 02/03/2018 14 Units Arm, Left 18:31 CDT Given 02/04/2018 14 Units Arm, Right 07:58 CDT insulin aspart U-100 (NOVOLOG FLEXPEN) Given 01/29/2018 15 Units Arm, Left injection PEN 15 Units 08:35 CDT 15 Units, Subcutaneous, THREE TIMES DAILY WITH MEALS, First dose on Wed01/28/18 at 0800, Until Discontinued, Hold if NPO for procedure, unable to eat, or if FSBS < 70 mg/dL Give at start of meal. NOTE: This is a HIGH ALERT Medication. Given 01/29/2018 15 Units Arm, Left 12:21 CDT Given 01/29/2018 15 Units Arm, Left 19:20 CDT insulin aspart U-100 (NOVOLOG FLEXPEN) Given 01/30/2018 16 Units Arm, Right injection PEN 16 Units 17:21 CDT 16 Units, Subcutaneous, THREE TIMES DAILY WITH MEALS, First dose on 01/30/18 at 0800, Until Discontinued, Hold if NPO for procedure, unable to eat, or if FSBS < 70 mg/dL Give at start of meal. NOTE: This is a HIGH ALERT Medication. Given 01/31/2018 16 Units Abdominal 08:43 CDT Tissue Given 01/31/2018 16 Units Arm, Left 12:09 CDT insulin aspart U-100 (NOVOLOG FLEXPEN) Given 01/31/2018 16 Units Arm, Right injection PEN 16 Units 17:06 CDT 16 Units, Subcutaneous, THREE TIMES DAILY WITH MEALS, 1 dose, First dose on 01/31/18 at 1800, Hold if NPO for procedure, unable to eat, or if FSBS < 70 mg/dL Give at start of meal. NOTE: This is a HIGH ALERT Medication. insulin aspart U-100 (NOVOLOG FLEXPEN) Given 01/26/2018 3 Units Abdomen :LLQ injection PEN 3 Units 23:03 CDT 3 Units, Subcutaneous, AT BEDTIME DAILY, First dose on Wed01/26/18 at 2200, Until Discontinued, For tube feed only . Please give at the start of the nocturnal tube feed and hold if tube feed is planned to be held within two hours of the dose NOTE: This is a HIGH ALERT Medication. Given 01/27/2018 3 Units Arm, Left 22:16 CDT insulin aspart U-100 (NOVOLOG FLEXPEN) Given 02/11/2018 4 Units Arm, Right injection PEN 4 Units 08:19 CDT 4 Units, Subcutaneous, THREE TIMES DAILY AFTER MEALS, First dose on Wed02/10/18 at 1100, Until Discontinued, - Post Meal Dosing: give scheduled Aspart (Novolog) insulin at the completion of meal based on % eaten. Adjust dose based on % of meal eaten. - >50% of meal eaten, give scheduled dose - 10-50% of meal eaten, give 1/2 of schedule dose (round dose to the nearest unit) - <10% of meal eaten, hold scheduled dose. NOTE: Rapid acting insulins should be given with food/meal. Use caution when patient is NPO. NOTE: This is a HIGH ALERT Medication. Given 02/11/2018 2 Units Arm, Right 12:29 CDT Given 02/11/2018 2 Units Arm, Right 17:55 CDT insulin aspart U-100 (NOVOLOG FLEXPEN) Given 02/09/2018 6 Units Arm, Right injection PEN 6 Units 12:27 CDT 6 Units, Subcutaneous, THREE TIMES DAILY WITH MEALS, First dose on Wed02/06/18 at 0800, Until Discontinued, Hold if NPO for procedure, unable to eat, or if FSBS < 70 mg/dL Give at start of meal. NOTE: This is a HIGH ALERT Medication. Given 02/09/2018 6 Units Abdominal 17:50 CDT Tissue Given 02/10/2018 6 Units Arm, Right 07:51 CDT insulin aspart U-100 (NOVOLOG FLEXPEN) Given 01/21/2018 8 Units Arm, Right injection PEN 8 Units 08:12 CDT 8 Units, Subcutaneous, THREE TIMES DAILY AFTER MEALS, First dose on Wed01/14/18 at 1900, Until Discontinued, - Post Meal Dosing: give scheduled Aspart (Novolog) insulin at the completion of meal based on % eaten. Adjust dose based on % of meal eaten. - >50% of meal eaten, give scheduled dose - 10-50% of meal eaten, give 1/2 of schedule dose (round dose to the nearest unit) - <10% of meal eaten, hold scheduled dose. NOTE: Rapid acting insulins should be given with food/meal. Use caution when patient is NPO. NOTE: This is a HIGH ALERT Medication. Given 01/21/2018 8 Units Arm, Right 12:30 CDT Given 01/21/2018 8 Units Abdominal 17:01 CDT Tissue insulin aspart U-100 (NOVOLOG FLEXPEN) Given 01/23/2018 8 Units Arm, Right injection PEN 8 Units 22:35 CDT 8 Units, Subcutaneous, AT BEDTIME DAILY, First dose on Wed01/23/18 at 2200, Until Discontinued, For tube feed only . Please give at the start of the nocturnal tube feed and hold if tube feed is planned to be held within two hours of the dose NOTE: This is a HIGH ALERT Medication. Given 01/24/2018 8 Units Arm, Right 22:16 CDT Given 01/25/2018 8 Units Abdomen:RUQ 22:47 CDT insulin aspart U-100 (NOVOLOG FLEXPEN) Given 02/05/2018 8 Units Arm, Left injection PEN 8 Units 12:39 CDT 8 Units, Subcutaneous, THREE TIMES DAILY WITH MEALS, First dose on 02/05/18 at 1200, Until Discontinued, Hold if NPO for procedure, unable to eat, or if FSBS < 70 mg/dL Give at start of meal. NOTE: This is a HIGH ALERT Medication. Given 02/05/2018 8 Units Arm, Right 18:01 CDT insulin glargine (LANTUS SOLOSTAR, Given 02/10/2018 10 Units Arm, Right BASAGLAR) injection PEN 10 Units 22:16 CDT 10 Units, Subcutaneous, AT BEDTIME DAILY, First dose on Christy 02/10/18 at 2100, Until Discontinued, Continue if NPO. DO NOT mix with other insulins -- Do not mix with other insulins -- NOTE: This is a HIGH ALERT Medication. insulin glargine (LANTUS SOLOSTAR, Given 02/07/2018 12 Units Arm, Left BASAGLAR) injection PEN 12 Units 21:32 CDT 12 Units, Subcutaneous, AT BEDTIME DAILY, First dose on Wed02/06/18 at 2100, Until Discontinued, Continue if NPO. DO NOT mix with other insulins -- Do not mix with other insulins -- NOTE: This is a HIGH ALERT Medication. Given 02/08/2018 12 Units Arm, Left 21:24 CDT Given 02/09/2018 12 Units Abdominal 21:35 CDT Tissue insulin glargine (LANTUS SOLOSTAR, Given 02/05/2018 16 Units Arm, Left BASAGLAR) injection PEN 16 Units 21:48 CDT 16 Units, Subcutaneous, AT BEDTIME DAILY, First dose on 02/05/18 at 2100, Until Discontinued, Continue if NPO. DO NOT mix with other insulins -- Do not mix with other insulins -- NOTE: This is a HIGH ALERT Medication. insulin glargine (LANTUS SOLOSTAR, Given 02/04/2018 18 Units Arm, Left BASAGLAR) injection PEN 18 Units 21:57 CDT 18 Units, Subcutaneous, AT BEDTIME DAILY, First dose on Wed02/04/18 at 2100, Until Discontinued, Continue if NPO. DO NOT mix with other insulins -- Do not mix with other insulins -- NOTE: This is a HIGH ALERT Medication. insulin glargine (LANTUS SOLOSTAR, Given 02/01/2018 20 Units Arm, Left BASAGLAR) injection PEN 20 Units 21:55 CDT 20 Units, Subcutaneous, AT BEDTIME DAILY, First dose on Wed01/14/18 at 2100, Until Discontinued, Continue if NPO. DO NOT mix with other insulins -- Do not mix with other insulins -- NOTE: This is a HIGH ALERT Medication. Given 02/02/2018 20 Units Arm, Left 21:54 CDT Given 02/03/2018 20 Units Abdomen:RLQ 21:19 CDT insulin glargine (LANTUS SOLOSTAR, Given 02/11/2018 5 Units Arm, Left BASAGLAR) injection PEN 5 Units 21:45 CDT 5 Units, Subcutaneous, AT BEDTIME DAILY, First dose on Wed02/11/18 at 2100, Until Discontinued, Continue if NPO. DO NOT mix with other insulins -- Do not mix with other insulins -- NOTE: This is a HIGH ALERT Medication. insulin NPH (HUMULIN N KwikPen) Given 01/26/2018 12 Units Abdomen:RUQ injection PEN 12 Units 23:04 CDT 12 Units, Subcutaneous, DAILY, First dose on Wed01/26/18 at 2200, Until Discontinued, Prior to nocturnal TF, hold if TF are held or planned to be held within 2 hours of the dose of NPH NOTE: This is a HIGH ALERT Medication. Given 01/27/2018 12 Units Arm, Left 22:17 CDT insulin NPH (HUMULIN N KwikPen) Given 01/23/2018 28 Units Abdomen:LUQ injection PEN 28 Units 22:40 CDT 28 Units, Subcutaneous, DAILY, First dose on Wed01/23/18 at 2200, Until Discontinued, Prior to nocturnal TF, hold if TF are held or planned to be held within 2 hours of the dose of NPH NOTE: This is a HIGH ALERT Medication. Given 01/24/2018 28 Units Abdomen:LUQ 22:16 CDT insulin NPH (HUMULIN N KwikPen) Given 01/17/2018 30 Units Arm, Right injection PEN 30 Units 21:50 CDT 30 Units, Subcutaneous, DAILY, First dose on Wed01/14/18 at 2200, Until Discontinued, Prior to nocturnal TF, hold if TF are held or planned to be held within 2 hours of the dose of NPH NOTE: This is a HIGH ALERT Medication. Given 01/18/2018 30 Units Abdomen:RLQ 22:04 CDT Given 01/19/2018 30 Units Abdomen:RLQ 21:53 CDT insulin NPH (HUMULIN N KwikPen) Given 01/25/2018 30 Units Arm, Left injection PEN 30 Units 21:48 CDT 30 Units, Subcutaneous, DAILY, First dose on Wed01/25/18 at 2200, Until Discontinued, Prior to nocturnal TF, hold if TF are held or planned to be held within 2 hours of the dose of NPH NOTE: This is a HIGH ALERT Medication. insulin NPH (HUMULIN N KwikPen) Given 01/20/2018 32 Units Arm, Right injection PEN 32 Units 22:33 CDT 32 Units, Subcutaneous, DAILY, First dose on Wed01/20/18 at 2200, Until Discontinued, Prior to nocturnal TF, hold if TF are held or planned to be held within 2 hours of the dose of NPH NOTE: This is a HIGH ALERT Medication. Given 01/21/2018 32 Units Abdomen:LLQ 22:00 CDT Given 01/22/2018 32 Units Abdomen:LLQ 22:07 CDT iopamidol 370 (ISOVUE-370) injection 70 Given 02/25/2018 70 mL mL 16:37 CDT 70 mL, Intravenous, ONCE, 1 dose, Wed02/25/18 at 1645, NOTE: This is a HIGH ALERT Medication. lactobacillus rhamnosus GG (CULTURELLE) Given 03/01/2018 1 capsule 15 billion cell capsule 1 capsule 07:51 CDT 1 capsule, Oral, TWICE DAILY WITH MEALS, First dose on Wed01/14/18 at 1700, Until Discontinued Given 03/01/2018 1 capsule 17:48 CDT Given 03/02/2018 1 capsule 09:16 CDT levothyroxine (SYNTHROID) tablet 175 mcg Given 01/23/2018 175 mcg 175 mcg, Oral, DAILY BEFORE BREAKFAST, 06:56 CDT First dose on Wed01/15/18 at 0700, Until Discontinued, Give 1 hour before a meal. If patient is receiving tube feedings, hold tube feed 1hr before and 1hr after dose. Given 01/24/2018 175 mcg 06:42 CDT Given 01/25/2018 175 mcg 06:51 CDT levothyroxine (SYNTHROID) tablet 200 mcg Given 02/28/2018 200 mcg 200 mcg, Oral, DAILY BEFORE BREAKFAST, 06:17 CDT First dose on Wed01/26/18 at 0700, Until Discontinued, Give 1 hour before a meal. If patient is receiving tube feedings, hold tube feed 1hr before and 1hr after dose. Given 03/01/2018 200 mcg 06:26 CDT Given 03/02/2018 200 mcg 06:36 CDT lidocaine (LIDODERM) 5 % topical patch 2 Patch/Topica 01/26/2018 2 patches Hip, Left patch l Applied 09:26 CDT 2 patch, Topical, Administer over 12 Hours, DAILY, First dose on 01/15/18 at 0900, Until Discontinued, Apply patches once daily to area around ostomy bag and incision. Apply only to intact skin. Patch may be cut to fit affected area. meropenem (MERREM) IVP 1 g Given 03/01/2018 1 g 1 g, Intravenous, EVERY 8 HOURS, First 15:58 CDT dose on Wed02/28/18 at 1500, Until Discontinued, Administer 1gram IV push followed by additional 1 gram for a total dose of 2gm dose. IV PUSH -- administer each 1 g vial over 5 minutes. RECONSTITUTE each 1 g vial by adding 20ml of sterile water. Use immediately after reconstitution. Given 03/01/2018 1 g 23:41 CDT Given 03/02/2018 1 g 06:43 CDT meropenem (MERREM) IVP 1 g Given 03/01/2018 1 g 1 g, Intravenous, EVERY 8 HOURS, First 15:58 CDT dose on Wed02/28/18 at 1515, Until Discontinued, Administer 1gram IV push followed by additional 1 gram for a total dose of 2gm dose. IV PUSH -- administer each 1 g vial over 5 minutes. RECONSTITUTE each 1 g vial by adding 20ml of sterile water. Use immediately after reconstitution. Given 03/01/2018 1 g 23:40 CDT Given 03/02/2018 1 g 06:42 CDT meropenem (MERREM) IVP 500 mg Given 02/07/2018 500 mg 500 mg, Intravenous, EVERY 6 HOURS, 16:20 CDT First dose on Wed01/26/18 at 2300, Until Discontinued, IV PUSH -- RECONSTITUTE 500 mg vial by adding 10ml of sterile water. Use immediately after reconstitution. Given 02/07/2018 500 mg 23:28 CDT Given 02/08/2018 500 mg 05:47 CDT metFORMIN (GLUCOPHAGE) tablet 1,000 mg Given 03/01/2018 1,000 mg 1,000 mg, Oral, TWICE DAILY WITH MEALS, 07:51 CDT First dose on 02/07/18 at 1700, Until Discontinued, Hold if NPO. Give right after a meal. Given 03/01/2018 1,000 mg 17:48 CDT Given 03/02/2018 1,000 mg 09:16 CDT metFORMIN (GLUCOPHAGE) tablet 500 mg Given 02/06/2018 500 mg 500 mg, Oral, TWICE DAILY WITH MEALS, 08:01 CDT First dose on Wed01/31/18 at 1700, Until Discontinued Given 02/06/2018 500 mg 18:40 CDT Given 02/07/2018 500 mg 09:21 CDT micafungin (MYCAMINE) 100 mg in sodium Given - New 01/15/2018 100 mg 100 mL/hr chloride 0.9% (NS) 100 mL IVPB (MB+) Bag 15:22 CDT 100 mg, Intravenous, 100 mL, Administer over 60 Minutes, at 100 mL/hr, EVERY 24 HOURS, First dose on 01/15/18 at 1500, Until Discontinued Given - New Bag 01/16/2018 100 mg 100 mL/hr 16:00 CDT nortriptyline (PAMELOR) capsule 100 mg Given 02/12/2018 100 mg 100 mg, Oral, AT BEDTIME DAILY, First 20:10 CDT dose on Wed02/08/18 at 2100, Until Discontinued Given 02/13/2018 100 mg 20:52 CDT Given 02/14/2018 100 mg 20:10 CDT nortriptyline (PAMELOR) capsule 25 mg Given 01/24/2018 25 mg 25 mg, Oral, AT BEDTIME DAILY, First 21:10 CDT dose on Wed01/14/18 at 2100, Until Discontinued Given 01/25/2018 25 mg 21:29 CDT Given 01/26/2018 25 mg 22:03 CDT nortriptyline (PAMELOR) capsule 50 mg Given 02/05/2018 50 mg 50 mg, Oral, AT BEDTIME DAILY, First 21:45 CDT dose on Christy 01/27/18 at 2100, Until Discontinued Given 02/06/2018 50 mg 20:38 CDT Given 02/07/2018 50 mg 21:30 CDT nortriptyline (PAMELOR) capsule 75 mg Given 02/27/2018 75 mg 75 mg, Oral, AT BEDTIME DAILY, First 21:51 CDT dose on Wed02/15/18 at 2100, Until Discontinued Given 02/28/2018 75 mg 21:39 CDT Given 03/01/2018 75 mg 20:32 CDT ondansetron (ZOFRAN) injection 4 mg Given 02/12/2018 4 mg 4 mg, Intravenous, EVERY 6 HOURS PRN, 12:32 CDT Starting Wed01/14/18 at 1623, Until Wed02/23/18 at 0919, Nausea/Vomiting Injectable Given 02/13/2018 4 mg 19:31 CDT Given 02/19/2018 4 mg 21:17 CDT ondansetron (ZOFRAN) tablet 4 mg Given 02/26/2018 4 mg 4 mg, Oral, EVERY 6 HOURS PRN, Starting 18:03 CDT Wed02/23/18 at 0919, Until Wed03/02/18 at 1856, Nausea/Vomiting PO Given 02/28/2018 4 mg 12:39 CDT oxyCODONE (ROXICODONE, OXY-IR) tablet 15 Given 02/23/2018 15 mg mg 10:23 CDT 15 mg, Oral, THREE TIMES WEEKLY (Once per day on Wed), First dose on Wed01/21/18 at 0900, Until Discontinued, Please give 1 hour prior to dressing changes Given 02/25/2018 15 mg 10:26 CDT Given 02/28/2018 15 mg 09:34 CDT oxyCODONE (ROXICODONE, OXY-IR) tablet 15 Given 02/01/2018 15 mg mg 07:40 CDT 15 mg, Oral, ONCE, 1 dose, Wed02/01/18 at 0745 oxyCODONE (ROXICODONE, OXY-IR) tablet 15 Given 03/02/2018 15 mg mg 00:45 CDT 15 mg, Oral, EVERY 4 HOURS PRN, Starting Wed02/25/18 at 0908, Until Wed03/02/18 at 1856, Pain PO Given 03/02/2018 15 mg 06:36 CDT Given 03/02/2018 15 mg 11:30 CDT oxyCODONE (ROXICODONE, OXY-IR) tablet 20 Given 02/24/2018 20 mg mg 12:45 CDT 20 mg, Oral, EVERY 4 HOURS PRN, Starting Wed01/14/18 at 1611, Until Wed02/25/18 at 0908, Pain PO Given 02/24/2018 20 mg 17:17 CDT Given 02/24/2018 20 mg 23:11 CDT oxyCODONE (ROXICODONE, OXY-IR) tablet 5 Given 03/01/2018 5 mg mg 12:37 CDT 5 mg, Oral, DAILY PRN, Starting Wed03/01/18 at 1130, Until Wed03/02/18 at 1856, Pain PO, Please give 1 hour prior to dressing changes as needed oxyCODONE SR (OXYCONTIN) tablet 10 mg Given 01/17/2018 10 mg 10 mg, Oral, ONCE, 1 dose, Wed01/17/18 12:39 CDT at 1245, DO NOT crush, break, or chew. NOTE: This is a HIGH ALERT Medication. oxyCODONE SR (OXYCONTIN) tablet 10 mg Given 03/01/2018 10 mg 10 mg, Oral, TWICE DAILY, First dose on 09:17 CDT Wed01/17/18 at 2100, Until Discontinued, DO NOT crush, break, or chew. NOTE: This is a HIGH ALERT Medication. Given 03/01/2018 10 mg 20:33 CDT Given 03/02/2018 10 mg 09:16 CDT oxyCODONE SR (OXYCONTIN) tablet 20 mg Given 01/15/2018 20 mg 20 mg, Oral, TWICE DAILY, First dose on 20:26 CDT Wed01/14/18 at 2100, Until Discontinued, DO NOT crush, break, or chew. NOTE: This is a HIGH ALERT Medication. Given 01/16/2018 20 mg 08:09 CDT Given 01/16/2018 20 mg 21:[address] (PROTONIX) tablet 40 mg Given 02/27/2018 40 mg 40 mg, Oral, DAILY, First dose on Wed 21:52 CDT 01/14/18 at 2100, Until Discontinued, Do not crush or chew tablet. Given 02/28/2018 40 mg 21:39 CDT Given 03/01/2018 40 mg 20:32 CDT rivaroxaban (XARELTO) tablet 20 mg Given 02/28/2018 20 mg 20 mg, Oral, DAILY WITH BREAKFAST, First 09:34 CDT dose on 01/15/18 at 0800, Until Discontinued, Administer with food. NOTE: This is a HIGH ALERT Medication. Given 03/01/2018 20 mg 07:51 CDT Given 03/02/2018 20 mg 09:16 CDT saliva, synthetic (MOUTHKOTE) oral spray 1 spray 1 spray, Mouth/Throat, NEEDED, Starting Wed02/23/18 at 1127, Until Wed03/02/18 at 1856, Dry Mouth simvastatin (ZOCOR) tablet 20 mg Given 02/27/2018 20 mg 20 mg, Oral, AT BEDTIME DAILY, First 21:51 CDT dose on Wed01/19/18 at 2100, Until Discontinued, NURSING: Please educate patient and document: Avoid taking grapefruit juice. Given 02/28/2018 20 mg 21:39 CDT Given 03/01/2018 20 mg 20:32 CDT sitaGLIPtin (JANUVIA) tablet 100 mg Given 02/28/2018 100 mg 100 mg, Oral, DAILY, First dose on Wed 09:33 CDT 02/01/18 at 0900, Until Discontinued Given 03/01/2018 100 mg 09:17 CDT Given 03/02/2018 100 mg 09:16 CDT sodium chloride 0.9 % infusion Given - New 02/26/2018 1,000 mL 125 mL/ hr 1,000 mL, 1,000 mL, Intravenous, at 125 Bag 19:58 CDT mL/hr, ONCE, 1 dose, 02/26/18 at 1930 SODIUM CHLORIDE 0.9 % IJ SOLN (Cabinet Given 02/09/2018 20 mL Override) 11:47 CDT NOW, 1 dose, Wed02/09/18 at 1200, Created by cabinet override SODIUM CHLORIDE 0.9 % IV SOLP (Cabinet Given - New 01/30/2018 100 mL Override) Bag 12:16 CDT NOW, 1 dose, Wed01/30/18 at 1215, Created by cabinet override SODIUM CHLORIDE 0.9 % IV SOLP (Cabinet Given - New 01/31/2018 100 mL Override) Bag 11:48 CDT NOW, 1 dose, 01/31/18 at 1145, Created by cabinet override sodium chloride PF 0.9% flush 20 mL Given 02/17/2018 20 mL 20 mL, Intravenous, FLUSH THREE TIMES 20:55 CDT DAILY, First dose on Wed01/20/18 at 0800, Until Discontinued, Flush central, Midline or PICC line, with 5-10 mL every 8 hours using the push-pause (turbulent) method. Flush all lumens that do not have a continuous infusion. After obtaining blood specimen, flush catheter with 20 mL. Given 02/18/2018 20 mL 08:03 CDT Given 02/18/2018 20 mL 17:07 CDT sodium chloride PF 0.9% flush 3-5 mL Given 03/01/2018 3 mL 3-5 mL, Intravenous, FLUSH THREE TIMES 17:49 CDT DAILY, First dose on Wed02/25/18 at 1600, Until Discontinued, Flush peripheral catheter with 3-5 mL every 8 hours using the push-pause (turbulent) method. Flush all lumens that do not have a continuous infusion. Given 03/01/2018 3 mL 23:42 CDT Given 03/02/2018 3 mL 09:29 CDT sodium chloride PF 0.9% flush 3-5 mL Given 03/01/2018 3 mL 3-5 mL, Intravenous, FLUSH THREE TIMES 17:49 CDT DAILY, First dose on Wed02/27/18 at 0800, Until Discontinued, Flush peripheral catheter with 3-5 mL every 8 hours using the push-pause (turbulent) method. Flush all lumens that do not have a continuous infusion. Given 03/01/2018 3 mL 23:42 CDT Given 03/02/2018 3 mL 09:28 CDT sodium chloride PF 0.9% flush 5-10 mL Given 01/19/2018 10 mL 5-10 mL, Intravenous, FLUSH THREE TIMES 10:25 CDT DAILY, First dose on Wed01/18/18 at 0000, Until Discontinued, Flush central, Midline or PICC line, with 5-10 mL every 8 hours using the push-pause (turbulent) method. Flush all lumens that do not have a continuous infusion. After obtaining blood specimen, flush catheter with 20 mL. Given 01/19/2018 10 mL 16:51 CDT Given 01/19/2018 10 mL 21:17 CDT sodium chloride PF 0.9% injection 20 mL Given 01/16/2018 20 mL 20 mL, Intravenous, EVERY 8 HOURS, 21:54 CDT First dose on 01/15/18 at 0130, Until Discontinued Given 01/17/2018 20 mL 08:57 CDT Given 01/17/2018 20 mL 17:41 CDT sodium chloride PF 0.9% injection 50 mL Given 02/25/2018 50 mL 50 mL, Intravenous, ONCE, 1 dose, Wed 16:45 CDT 02/25/18 at 1645, Intra-procedure (IR) sodium hypochlorite (DAKIN'S 1/2 STRENGTH) 0.25 % topical solution Irrigation, NEEDED, Starting 02/13/18 at 1933, Until Wed03/02/18 at 1856, Topical for Dressing Changes vancomycin (VANCOCIN) 1,250 mg in Given - New 02/03/2018 1,250 mg 275 mL/hr dextrose 5% (D5W) IVPB Bag 23:23 CDT 1,250 mg, Intravenous, 275 mL, Administer over 60 Minutes, EVERY 12 HOURS, First dose on Wed01/26/18 at 2330, Until Discontinued, Note Pharmacokinetic Monitoring: Please record infusion start time (Action=Given) and stop time (Action=Completed) of dose when blood levels are drawn. Given - New Bag 02/04/2018 1,250 mg 275 mL/hr 11:13 CDT Given - New Bag 02/04/2018 1,250 mg 275 mL/hr 23:36 CDT vancomycin (VANCOCIN) 1,500 mg in dextrose 5% (D5W) IVPB 1,500 mg, Intravenous, 300 mL, Administer over 90 Minutes, EVERY 24 HOURS, First dose on Wed03/02/18 at 2000, Until Discontinued, Note Pharmacokinetic Monitoring: Please record infusion start time (Action=Given) and stop time (Action=Completed) of dose when blood levels are drawn. vancomycin (VANCOCIN) 1,750 mg in Given - New 02/07/2018 1,750 mg 233 mL/hr dextrose 5% (D5W) IVPB Bag 21:44 CDT 1,750 mg, Intravenous, 350 mL, Administer over 90 Minutes, EVERY 24 HOURS, First dose on 02/05/18 at 2200, Until Discontinued, Note Pharmacokinetic Monitoring: Please record infusion start time (Action=Given) and stop time (Action=Completed) of dose when blood levels are drawn. Given - New Bag 02/08/2018 1,750 mg 233 mL/hr 21:19 CDT Given - New Bag 02/09/2018 1,750 mg 233 mL/hr 21:25 CDT vancomycin (VANCOCIN) 2 g in dextrose 5% Given - New 02/12/2018 2 g 270 mL/hr (D5W) IVPB Bag 20:20 CDT 2 g, Intravenous, 540 mL, Administer over 120 Minutes, EVERY 24 HOURS, First dose on Christy 02/10/18 at 2000, Until Discontinued, Note Pharmacokinetic Monitoring: Please record infusion start time (Action=Given) and stop time (Action=Completed) of dose when blood levels are drawn. Given - New Bag 02/13/2018 2 g 270 mL/hr 20:52 CDT Given - New Bag 02/14/2018 2 g 270 mL/hr 20:11 CDT vancomycin (VANCOCIN) 2,000 mg in sodium Given - New 02/27/2018 2,000 mg 270 mL/hr chloride 0.9% (NS) IVPB Bag 23:36 CDT 2,000 mg, Intravenous, 540 mL, Administer over 120 Minutes, EVERY 24 HOURS, First dose on 02/26/18 at 1945, Until Discontinued, Note Pharmacokinetic Monitoring: Please record infusion start time (Action=Given) and stop time (Action=Completed) of dose when blood levels are drawn. Given - New Bag 02/28/2018 2,000 mg 270 mL/hr 19:43 CDT Given - New Bag 03/01/2018 2,000 mg 270 mL/hr 20:32 CDT vancomycin, pharmacy to manage PER PHARMACY, 999 doses, Starting Wed03/02/18 at 0819, Until Wed03/02/18 at 1856, Indication for this medication: trough 10-15, wound infection vitamin A & D topical ointment Given 01/30/2018 Topical, TWICE DAILY, First dose on Wed 21:25 CDT 01/14/18 at 2100, Until Discontinued, Apply thin layer of ointment to Labia wound and left lower abdomen. Given 01/31/2018 10:11 CDT Given 01/31/2018 20:52 CDT WATER FOR INJECTION, STERILE IJ SOLN Given 01/15/2018 20 mL (Cabinet Override) 12:29 CDT NOW, 1 dose, 01/15/18 at 1130, Created by cabinet override WATER FOR INJECTION, STERILE IJ SOLN Given 01/17/2018 20 mL (Cabinet Override) 11:14 CDT NOW, 1 dose, 01/17/18 at 1015, Created by cabinet override WATER FOR INJECTION, STERILE IJ SOLN Given 01/18/2018 20 mL (Cabinet Override) 04:43 CDT NOW, 1 dose, 01/18/18 at 0445, Created by cabinet override WATER FOR INJECTION, STERILE IJ SOLN Given 01/18/2018 20 mL (Cabinet Override) 11:28 CDT NOW, 1 dose, 01/18/18 at 0800, Created by cabinet override WATER FOR INJECTION, STERILE IJ SOLN Given 01/19/2018 20 mL (Cabinet Override) 10:25 CDT NOW, 1 dose, 01/19/18 at 0930, Created by cabinet override WATER FOR INJECTION, STERILE IJ SOLN Given 01/20/2018 20 mL (Cabinet Override) 11:24 CDT NOW, 1 dose, Christy 01/20/18 at 1130, Created by cabinet override WATER FOR INJECTION, STERILE IJ SOLN Given 01/21/2018 20 mL (Cabinet Override) 10:39 CDT NOW, 1 dose, 01/21/18 at 1045, Created by cabinet override WATER FOR INJECTION, STERILE IJ SOLN Given 01/22/2018 (Cabinet Override) 11:50 CDT NOW, 1 dose, 01/22/18 at 1200, Created by cabinet override WATER FOR INJECTION, STERILE IJ SOLN Given 01/23/2018 10 mL (Cabinet Override) 11:42 CDT NOW, 1 dose, 01/23/18 at 1145, Created by cabinet override WATER FOR INJECTION, STERILE IJ SOLN Given 01/24/2018 10 mL (Cabinet Override) 20:29 CDT NOW, 1 dose, 01/24/18 at 2000, Created by cabinet override WATER FOR INJECTION, STERILE IJ SOLN Given 01/27/2018 10 mL (Cabinet Override) 11:49 CDT NOW, 1 dose, Christy 01/27/18 at 1130, Created by cabinet override WATER FOR INJECTION, STERILE IJ SOLN Given 01/28/2018 20 mL (Cabinet Override) 12:56 CDT NOW, 1 dose, 01/28/18 at 1200, Created by cabinet override WATER FOR INJECTION, STERILE IJ SOLN Given 01/28/2018 20 mL (Cabinet Override) 16:51 CDT NOW, 1 dose, 01/28/18 at 1600, Created by cabinet override WATER FOR INJECTION, STERILE IJ SOLN Given 01/29/2018 20 mL (Cabinet Override) 12:32 CDT NOW, 1 dose, 01/29/18 at 1200, Created by cabinet override WATER FOR INJECTION, STERILE IJ SOLN Given 01/29/2018 20 mL (Cabinet Override) 17:38 CDT NOW, 1 dose, 01/29/18 at 1730, Created by cabinet override WATER FOR INJECTION, STERILE IJ SOLN Given 01/30/2018 20 mL (Cabinet Override) 11:53 CDT NOW, 1 dose, 01/30/18 at 0945, Created by cabinet override WATER FOR INJECTION, STERILE IJ SOLN Given 01/30/2018 20 mL (Cabinet Override) 17:01 CDT NOW, 1 dose, 01/30/18 at 1530, Created by cabinet override WATER FOR INJECTION, STERILE IJ SOLN Given 01/31/2018 (Cabinet Override) 10:31 CDT NOW, 1 dose, 01/31/18 at 1030, Created by cabinet override WATER FOR INJECTION, STERILE IJ SOLN Given 01/31/2018 20 mL (Cabinet Override) 18:36 CDT NOW, 1 dose, 01/31/18 at 1700, Created by cabinet override WATER FOR INJECTION, STERILE IJ SOLN Given 02/01/2018 10 mL (Cabinet Override) 00:19 CDT NOW, 1 dose, 02/01/18 at 0015, Created by cabinet override WATER FOR INJECTION, STERILE IJ SOLN Given 02/01/2018 10 mL (Cabinet Override) 05:11 CDT NOW, 1 dose, 02/01/18 at 0515, Created by cabinet override WATER FOR INJECTION, STERILE IJ SOLN Given 02/01/2018 20 mL (Cabinet Override) 11:17 CDT NOW, 1 dose, 02/01/18 at 1115, Created by cabinet override WATER FOR INJECTION, STERILE IJ SOLN Given 02/01/2018 10 mL (Cabinet Override) 22:39 CDT NOW, 1 dose, 02/01/18 at 2230, Created by cabinet override WATER FOR INJECTION, STERILE IJ SOLN Given 02/02/2018 20 mL (Cabinet Override) 05:02 CDT NOW, 1 dose, 02/02/18 at 0445, Created by cabinet override WATER FOR INJECTION, STERILE IJ SOLN Given 02/02/2018 20 mL (Cabinet Override) 11:55 CDT NOW, 1 dose, 02/02/18 at 1145, Created by cabinet override WATER FOR INJECTION, STERILE IJ SOLN Given 02/02/2018 20 mL (Cabinet Override) 17:50 CDT NOW, 1 dose, 02/02/18 at 1600, Created by cabinet override WATER FOR INJECTION, STERILE IJ SOLN Given 02/03/2018 20 mL (Cabinet Override) 18:30 CDT NOW, 1 dose, Christy 02/03/18 at 1645, Created by cabinet override WATER FOR INJECTION, STERILE IJ SOLN Given 02/04/2018 20 mL (Cabinet Override) 11:05 CDT NOW, 1 dose, 02/04/18 at 1030, Created by cabinet override WATER FOR INJECTION, STERILE IJ SOLN Given 02/05/2018 20 mL (Cabinet Override) 11:28 CDT NOW, 1 dose, 02/05/18 at 1130, Created by cabinet override WATER FOR INJECTION, STERILE IJ SOLN Given 02/06/2018 10 mL (Cabinet Override) 11:41 CDT NOW, 1 dose, 02/06/18 at 1130, Created by cabinet override WATER FOR INJECTION, STERILE IJ SOLN Given 02/06/2018 (Cabinet Override) 17:41 CDT NOW, 1 dose, 02/06/18 at 1700, Created by cabinet override WATER FOR INJECTION, STERILE IJ SOLN Given 02/07/2018 20 mL (Cabinet Override) 10:33 CDT NOW, 1 dose, 02/07/18 at 1045, Created by cabinet override WATER FOR INJECTION, STERILE IJ SOLN Given 02/07/2018 20 mL (Cabinet Override) 23:29 CDT NOW, 1 dose, 02/07/18 at 2130, Created by cabinet override WATER FOR INJECTION, STERILE IJ SOLN Given 02/08/2018 20 mL (Cabinet Override) 05:47 CDT NOW, 1 dose, 02/08/18 at 0545, Created by cabinet override WATER FOR INJECTION, STERILE IJ SOLN Given 02/10/2018 20 mL (Cabinet Override) 11:12 CDT NOW, 1 dose, Christy 02/10/18 at 1100, Created by cabinet override WATER FOR INJECTION, STERILE IJ SOLN Given 02/12/2018 (Cabinet Override) 11:06 CDT NOW, 1 dose, 02/12/18 at 1030, Created by cabinet override WATER FOR INJECTION, STERILE IJ SOLN Given 02/27/2018 10 mL (Cabinet Override) 20:45 CDT NOW, 1 dose, 02/27/18 at 2030, Created by cabinet override WATER FOR INJECTION, STERILE IJ SOLN Given 02/28/2018 (Cabinet Override) 17:32 CDT NOW, 1 dose, 02/28/18 at 1700, Created by cabinet override WATER FOR INJECTION, STERILE IJ SOLN Given 02/28/2018 20 mL (Cabinet Override) 22:39 CDT NOW, 1 dose, 02/28/18 at 2230, Created by cabinet override WATER FOR INJECTION, STERILE IJ SOLN Given 03/01/2018 40 mL (Cabinet Override) 06:30 CDT NOW, 1 dose, 03/01/18 at 0630, Created by cabinet override WATER FOR INJECTION, STERILE IJ SOLN Given 03/01/2018 40 mL (Cabinet Override) 15:58 CDT NOW, 1 dose, 6/12/18 at 1600, Created by cabinet override WATER FOR INJECTION, STERILE IJ SOLN Given 03/01/2018 20 mL (Cabinet Override) 23:40 CDT NOW, 1 dose, Tu03/01/18 at 2345, Created by cabinet override WATER FOR INJECTION, STERILE IJ SOLN Given 03/02/2018 20 mL (Cabinet Override) 06:42 CDT NOW, 1 dose, Wed03/02/18 at 0645, Created by cabinet override WATER FOR INJECTION, STERILE IJ SOLN Given 03/02/2018 20 mL (Cabinet Override) 09:29 CDT NOW, 1 dose, Wed03/02/18 at 0930, Created by cabinet override in this encounter
--- OUTSIDE RECORDS SUMMARY | 2018-03-06 21:56 | XMS REPORT | Encounter Summary ---
Author Author [facility] Organization [facility] Address Unknown Phone Unavailable Care Team Providers Care Gluing Machine Operator Name Role Phone Della Cuellar MD PCP Encounter Details Date Type Department Care Team Description 03/01/2018 Documentation HOME INFUSION PHARMACY Kenneth Menezes [address] [place] [address] [id number] [place] [address] Social History Tobacco Use Types Packs/Day Years [...] impairment: No 12/03/2017 as of this encounter Progress Notes * Kenneth Menezes - 03/01/2018 4:21 PM T [facility] Home [facility]fusion - Benefits and Prior Authorization Billable Codes: [id number] (PA Submitted) Insurance Name: [facility] Phone #: [phone] Deductible: $500.00 Amount Met: $500.00 OOP: $2,000.00 Amount Met: $2,000.00 Coinsurance rate: 80% After OOP, policy pays at: 100% Patient is 100% covered but [facility] requires a Prior Authoization to be submitted for home infusion therapy. Pending PA # is [id number] Authorization Required: Yes - [facility] Phone #: [phone] Fax #: [phone] Pending Case # [id number] Pre-Determination Needed: Di Menezes [facility] Home Infusion Patient Leader Writer II Liason Referral [phone], [place] [address] in this encounter Plan of Treatment Date Type Specialty Care Team Description 03/01/2018 Procedure Pass Cardiothoracic Surgery as of this encounter Visit Diagnoses Not on filein this encounter
--- OUTSIDE RECORDS SUMMARY | 2018-03-06 21:56 | XMS REPORT | Encounter Summary ---
Author Author [facility] Organization [facility] Address Unknown Phone Unavailable Care Team Providers Care Sample Clerk Name Role Phone Della Cuellar MD PCP Reason for Visit * Reason Comments Hyperbaric Encounter Details Date Type Department Care Team Description 03/01/2018 Hospital Outpatient Burn and Wound Casey Schneider MD Encounter Clinic [address] [place] [address] [address] [place] [address] [phone] T Naga brown MD [address] [place] [address] [phone] Social History Tobacco Use Types Packs/Day Years Used Date Never Smoker Smokeless Tobacco: Never Used Alcohol Use Drinks/Week oz/Week Comments No Sex Assigned at Date Recorded Not on file as of this encounter Last Filed Vital Signs Vital Sign Reading Time Taken Blood Pressure - - Pulse - - Temperature 36.7 C (98 F) 03/01/2018 1:20 PM CDT Respiratory Rate - - Oxygen Saturation - - Inhaled Oxygen - - Concentration Weight - - Height - - Body Mass Index - - in this encounter Functional Status Functional Status [...] impairment: No 12/03/2017 as of this encounter Medications at Time of Discharge [...] 300 mL IVPB hours. Continue until surgery. acetaminophen (TYLENOL) Take 2 tablets by mouth 200 tablet 0 201703/02/2018 500 mg tablet every 8 hours. Max of 4,000 mg of acetaminophen in 24 hours. alum/mag hydroxide/simeth Take 30 mL by mouth every 01/14/20182017 (MYLANTA, MAALOX PLUS) 6 hours as needed. 200/200/20 mg/5 mL susp oral suspension buPROPion (WELLBUTRIN) Take 1 tablet by mouth 90 tablet 0 01/14/2018 03/02/2018 100 mg tablet three times daily. collagenase (SANTYL) 250 Apply to left lower 0 01/14/2018 03/02/2018 unit/g topical ointment abdominal wound. Do not apply over incision. diazePAM (VALIUM) 5 mg Take 0.5-1 tablets by 01/14/2018 03/02/2018 tablet mouth every 8 hours as needed. ertapenem (INVANZ) 1 g/10 Administer 10 mL through 1 each 01/14/2018 03/02/[address] IVP vein every 24 hours for 9 days. gabapentin (NEURONTIN) Take 3 capsules by mouth 270 capsule 3 201703/02/2018 300 mg capsule three times daily. HYDROmorphone injection Administer 0.5-1 mg 01/14/2018 03/02/2018 (DILAUDID) 2 mg/mL syrg through vein three times weekly Earliest Fill Date: 01/14/18 Only as needed for wound vac changes. Attempt to wean. insulin aspart U-100 Inject 8 Units under the 45 mL 3 01/14/2018 (NOVOLOG FLEXPEN) 100 skin three times daily unit/mL injection PEN after meals. insulin glargine (LANTUS Inject 22 Units under the 45 mL 3 01/14/2018 03/02/2018 SOLOSTAR, BASAGLAR) 100 skin at bedtime daily. unit/mL (3 mL) injection PEN insulin NPH (HUMULIN N Inject 30 Units under the 45 mL 3 01/14/2018 03/02/2018 KWIKPEN) 100 unit/mL (3 skin daily. mL) injection PEN insulin pen needles Use 1 each as directed 300 each 3 01/14/2018 (disposable) (BD UF LYNETTE before meals and at PEN NEEDLES) 32 gauge x bedtime. Use with insulin 5/32" pen needle injections. levothyroxine (SYNTHROID) Take 175 mcg by mouth 03/02/2018 175 mcg tablet daily. lidocaine 2% (20 mg/mL) 50 mL by SEE ADMIN 5 mL 01/14/2018 03/02/2018 soln INSTRUCTIONS route three times weekly. To be used for wound vac changes PRN. Use 50 ml to infiltrate wound vac sponge prior to wound vac changes for pain control. lisinopril (PRINIVIL; Take 10 mg by mouth 03/02/2018 ZESTRIL) 10 mg tablet daily. micafungin (MYCAMINE) 100 Administer 100 mg through 01/14/20182017 mg/5 mL 100 mg in sodium vein every 24 hours for 2 chloride 0.9% (NS) 0.9 % days. 100 mL IVPB (MB+) nortriptyline (PAMELOR) Take 1 capsule by mouth 01/14/2018 03/02/2018 25 mg capsule at bedtime daily. oxyCODONE SR (OXYCONTIN) Take 1 tablet by mouth 0 01/14/20182017 20 mg tablet twice daily Earliest Fill Date: 01/14/18 oxycodone(+) (ROXICODONE, Take 1-2 tablets by mouth 75 tablet 0 201703/02/2018 OXY-IR) 10 mg tablet every 4 hours as needed Earliest Fill Date: 01/14/18 pancrelipase 20,000 Take 1 capsule via 01/14/2018 03/02/2018 Units/ sodium bicarbonate feeding tube PRN (Child Guidance Counselor 650 mg(#) (KU CLOG from Rx) (Occluded DESTROYER) 20,000 Unit/ Feeding Tube). [address] Take 1 tablet by mouth 90 tablet 3 01/14/20182017 (PROTONIX) 40 mg tablet daily. potassium chloride SR Take 10 mEq by mouth 03/02/2018 (K-DUR) 10 mEq tablet daily. Take with a meal and a full glass of water. simethicone (MYLICON) 80 Chew 1 tablet by mouth 30 tablet 0 201703/02/2018 mg chew tablet every 6 hours as needed for Flatulence. vitamin A & D oint Apply topically to 01/14/2018 03/02/2018 affected area twice daily. Apply thin layer of ointment to labial wound. as of this encounter Progress Notes * Naga Irby MD - 03/01/2018 4:02 PM CDT Formatting of this note may be different from the original. Name:Beata Kaiser :1965 Age: 52 y.o. Date of Service: 03/01/2018 History of Present Illness 52 yo female here for HBO therapy for failed flap. No complaints today. Feels like wound is getting better. Allergies Allergen Reactions Cephalexin SEE COMMENTS Face gets red, feels really hot, has tolerated penicillin Vitals: 03/01/18 1320 Temp: 36.7 C (98 F) There is no height or weight on file to calculate BMI. Review of System Review of Systems Physical Exam NAD Chronically ill appearing Alert/Oriented x 4 Impression Indications: Compromised Skin Graft/Flap Plan Hyperbaric Treatment Number: 20 of Total Treatments: 20 Procedure Decent Rate: 2 Air Break 1: 1425 Decent Rate: 2 Treatment Length: 106-135 Post Procedure Tolerated: Descent and Ascent w/o difficulty. No signs of O2 toxicity. I was personally present for or immediately available for entire procedure. 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
--- OUTSIDE RECORDS SUMMARY | 2018-03-06 21:56 | XMS REPORT | Encounter Summary ---
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) [address] [place] [address] rocedures Phone: CT CHEST W [phone] CONTRAST Encounter Details Date Type Department Care Team Description 03/01/2018 Orders Only Flavio Thoracic & Kristina Pink RN Pulmonary nodules Cardiovascular Surgeons (Primary Dx); [address] Chondrosarcoma (HCC) [place] [address] Social History Tobacco Use Types [...] Pass Cardiothoracic Surgery Name Priority Associated Diagnoses Order Schedule CT CHEST W CONTRAST Routine Chondrosarcoma (HCC) Expected: 06/01/2018 Pulmonary nodules (Approximate), Expires: 03/01/2019 as of this encounter Visit Diagnoses Diagnosis Pulmonary nodules - Primary Other nonspecific abnormal finding of lung field 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
--- OUTSIDE RECORDS SUMMARY | 2018-03-06 21:56 | XMS REPORT | Encounter Summary ---
Author Author [facility] Organization [facility] Address Unknown Phone Unavailable Care Team Providers Care Blueprint Assembler Name Role Phone Della Cuellar MD PCP Reason for Visit * Reason Comments Referral Encounter Details Date Type Department Care Team Description 02/28/2018 Documentation [facility], Cardiovascular Surgeons [address] [place] [address] [address] [place] [address] [phone] Social History Tobacco Use Types Packs/Day Years [...] as of this encounter Progress Notes * Ciarra Fish RN - 02/28/2018 12:33 PM CDT Thoracic Surgery Navigation Intake Document Patient Name: Beata Kaiser : 1965 52 y/o Insurance: [facility] Appointment Info: To be seen prior to discharge home from Inpatient Acute Rehab unit Diagnosis & Reason for Visit: Pulmonary nodules R91.8, hx chondrosarcoma C41.9/ discuss CT chest findings and surgical options Physician Info: Referring Physician: Dr. Jose Raul Luther Ortho Onc surgeon: Dr. Luther Surgeons: Dr. Priyank Mccollum ; Dr. Spencer Purcell , PCP: No PCP Location of Films: IN HOUSE and PACS Location of Pathology: IN HOUSE History/timeline: Hx left pelvic mass and lung nodules 11/26/17 - CT chest - Indeterminate bilateral lower lobe and right middle lobe subcentimeter nodules; add'l findings per report 11/29/17 - consultation w/ Dr. 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 Skinner agreeable to seeing patient in Acute Rehab unit prior to her DC. 02/25/18 - CT chest - Several stable tiny pulmonary nodules are seen in both lungs; these are most likely scars or granulomas; new faint nodular tree-in-bud infiltrate in the right lung most compatible w/ minimal atypical pneumonitis; [id number] atelectasis in the right lung base. Prior Treatment (XRT, Surgery, Chemotherapy): Extensive (hemipelvectomy) surgery for chrondrosarcoma Comments: Patient lives in [place], [place]. Per notes/EMR, medical hx includes: depression; anxiety; DM; hypothyroidism; chronic pain; Inpatient family welfare social work professor and case management director continue to plan for discharge. Per notes, for independent mobility in the home, pt will require manual w/c. Therapy evaluation completed to assess for the most appropriate Ww/c for patient. Add'l DME will be required in home at time of DC. in this encounter Plan of Treatment Date Type Specialty Care Team Description 03/01/2018 Procedure Pass Cardiothoracic Surgery as of this encounter Visit Diagnoses Not on filein this encounter
--- OUTSIDE RECORDS SUMMARY | 2018-03-06 21:57 | XMS REPORT | Encounter Summary ---
Author Author [facility] Organization [facility] Address Unknown Phone Unavailable Care Team Providers Care Child Development Specialist Name Role Phone Della Cuellar MD PCP Reason for Visit * Reason Comments Hyperbaric Encounter Details Date Type Department Care Team Description 02/24/2018 Hospital Outpatient Burn and Wound Casey Schneider MD Encounter Clinic [address] [place] [address] [address] [place] [address] [phone] C Cristino lim MD [address] [place] [address] [phone] Social History Tobacco Use Types Packs/Day Years Used Date Never Smoker Smokeless Tobacco: Never Used Alcohol Use Drinks/Week oz/Week Comments No Sex Assigned at Date Recorded Not on file as of this encounter Last Filed Vital Signs Vital Sign Reading Time Taken Blood Pressure - - Pulse - - Temperature 36.8 C (98.2 F) 02/24/2018 1:20 PM CDT Respiratory Rate - - [...] 03/02/2018 Units/ sodium bicarbonate feeding tube PRN (Professor Of History 650 mg(#) (KU CLOG from Rx) (Occluded [...] as of this encounter Progress Notes * Cristino Perrin MD - 02/24/2018 6:09 PM CDT Formatting of this note may be different from the original. Name:Beata Kaiser :1965 Age: 52 y.o. Date of Service: 02/24/2018 History of Present Illness No new issues - wounds looking better - Allergies Allergen Reactions Cephalexin SEE COMMENTS Face gets red, feels really hot, has tolerated penicillin Vitals: 02/24/18 1320 Temp: 36.8 C (98.2 F) There is no height or weight on file to calculate BMI. Review of System Review of Systems No fever s- wounds persist - no ear pain Physical Exam Neuro - non-focal Resp - no distress CV - RR Impression Indications: Compromised Skin Graft/Flap Plan Hyperbaric Treatment Number: 17 of Total Treatments: 20 Procedure Decent Rate: 2 Air Break 1: 1425 Decent Rate: 2 Treatment Length: 106-135 Tolerated: Pt tolerated the ascent and decent without any issues - No O2 toxicity - I supervised the entire visit. 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
--- OUTSIDE RECORDS SUMMARY | 2018-03-06 21:57 | XMS REPORT | Encounter Summary ---
Author Author [facility] Organization [facility] Address Unknown Phone Unavailable Care Team Providers Care Child Attendant Name Role Phone Della Cuellar MD PCP Reason for Visit * Reason Comments Hyperbaric Encounter Details Date Type Department Care Team Description 02/25/2018 Hospital Outpatient Burn and Wound Casey Schneider MD Encounter Clinic [address] [place] [address] [address] [place] [address] [phone] Vasu Lamb MD [address] [facility] [address] [place] [address] [phone] Social History Tobacco Use Types Packs/Day Years Used Date Never Smoker Smokeless Tobacco: Never Used Alcohol Use Drinks/Week oz/Week Comments No Sex Assigned at Date Recorded Not on file as of this encounter Last Filed Vital Signs Vital Sign Reading Time Taken Blood Pressure - - Pulse - - Temperature 37.3 C (99.1 F) 02/25/2018 1:40 PM CDT Respiratory Rate - - Oxygen [...] 03/02/2018 Units/ sodium bicarbonate feeding tube PRN (Sr. Strategic Sourcing Manager 650 mg(#) (KU CLOG from Rx) (Occluded [...] to labial wound. 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
--- OUTSIDE RECORDS SUMMARY | 2018-03-06 21:57 | XMS REPORT | Encounter Summary ---
Author Author [facility] Organization [facility] Address Unknown Phone Unavailable Care Team Providers Care Materials Branch Chief Name Role Phone Della Cuellar MD PCP Reason for Visit * Reason Comments Hyperbaric Encounter Details Date Type Department Care Team Description 02/28/2018 Hospital Outpatient Burn and Wound Casey Schneider MD Encounter Clinic [address] [place] [address] [address] [place] [address] [phone] Aron Matthews MD [address] [place] [address] [phone] Social History Tobacco Use Types Packs/Day Years Used Date Never Smoker Smokeless Tobacco: Never Used Alcohol Use Drinks/Week oz/Week Comments No Sex Assigned at Date Recorded Not on file as of this encounter Last Filed Vital Signs Vital Sign Reading Time Taken Blood Pressure - - Pulse - - Temperature 36.9 C (98.5 F) 02/28/2018 1:45 PM CDT Respiratory Rate - - Oxygen [...] 03/02/2018 Units/ sodium bicarbonate feeding tube PRN (Behavioral Health Worker 650 mg(#) (KU CLOG from Rx) (Occluded [...] as of this encounter Progress Notes * Aron Sandra MD - 02/28/2018 5:25 PM CDT Formatting of this note may be different from the original. Name:Beata Kaiser :1965 Age: 52 y.o. Date of Service: 02/28/2018 History of Present Illness Pt w/o complaint today Allergies Allergen Reactions Cephalexin SEE COMMENTS Face gets red, feels really hot, has tolerated penicillin Vitals: 02/28/18 1345 Temp: 36.9 C (98.5 F) There is no height or weight on file to calculate BMI. Review of System Review of Systems Physical Exam Alert, cooperative Normal resp effort Dressings covered Bilateral TMs partially visible past cerumen w/o redness or fluid Impression Indications: Compromised Skin Graft/Flap Plan Hyperbaric Treatment Number: 19 of Total Treatments: 20 Procedure Decent Rate: 2 Air Break 1: 1455 Decent Rate: 2 Treatment Length: 106-135 Tolerated: Patient tolerated descent and ascent w/o troubles, no signs of o2 toxicity, I supervised the treatment. Plan: Continue Protocol in this encounter Miscellaneous Notes * Addendum Note - Aron Sandra MD - 02/28/2018 5:28 PM CDT Encounter addended by: Aron Sandra MD on: 02/28/2018 5:28 PM
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
--- OUTSIDE RECORDS SUMMARY | 2018-03-06 21:57 | XMS REPORT | Encounter Summary ---
Author Author [facility] Organization [facility] Address Unknown Phone Unavailable Care Team Providers Care Extension Service Specialist Name Role Phone Della Cuellar MD PCP Encounter Details Date Type Department Care Team Description 02/25/2018 Procedure Pass R [facility] UN[facility] [address] [place] [address] Social History Tobacco Use Types Packs/Day Years [...]
--- OUTSIDE RECORDS SUMMARY | 2018-03-06 21:58 | XMS REPORT | Encounter Summary ---
Author Author [facility] Organization [facility] Address Unknown Phone Unavailable Care Team Providers Care Joinery Patternmaker Name Role Phone Della Cuelalr MD PCP Reason for Visit * Reason Comments Hyperbaric Encounter Details Date Type Department Care Team Description 02/22/2018 Hospital Outpatient Burn and Wound Casey Schneider MD Encounter Clinic [address] [place] [address] [address] [place] [address] [phone] Aron Matthews MD [address] [place] [address] [phone] Social History Tobacco Use Types Packs/Day Years Used Date Never Smoker Smokeless Tobacco: Never Used Alcohol Use Drinks/Week oz/Week Comments No Sex Assigned at Date Recorded Not on file as of this encounter Last Filed Vital Signs Vital Sign Reading Time Taken Blood Pressure 111/64 02/22/2018 1:32 PM CDT Pulse 86 02/22/2018 1:32 PM CDT Temperature 36.8 C (98.3 F) 02/22/2018 1:32 PM CDT Respiratory Rate 20 02/22/2018 1:32 PM CDT Oxygen Saturation 100% 02/22/2018 1:32 PM CDT Inhaled Oxygen - - Concentration Weight - [...] 03/02/2018 Units/ sodium bicarbonate feeding tube PRN (Nail Polish Brush Machine Feeder 650 mg(#) (KU CLOG from Rx) (Occluded [...] Progress Notes * Aron Sandra MD - 02/22/2018 6:59 PM CDT Formatting of this note may be different from the original. Name:Beata Kaiser :1965 Age: 52 y.o. Date of Service: 02/22/2018 History of Present Illness Pt w/o new concerns today Allergies Allergen Reactions Cephalexin SEE COMMENTS Face gets red, feels really hot, has tolerated penicillin Vitals: 02/22/18 1332 BP: 111/64 Pulse: 86 Resp: 20 Temp: 36.8 C (98.3 F) TempSrc: Oral SpO2: 100% There is no height or weight on file to calculate BMI. Review of System Review of Systems Physical Exam Alert, cooperative Impression Indications: Compromised Skin Graft/Flap Plan Hyperbaric Treatment Number: 15 of Total Treatments: 20 Procedure Decent Rate: 2 Air Break 1: 1425 Decent Rate: 2 Treatment Length: 106-135 Tolerated: Patient tolerated descent and ascent w/o troubles, no signs of o2 toxicity, I supervised the treatment. 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
--- OUTSIDE RECORDS SUMMARY | 2018-03-06 21:58 | XMS REPORT | Encounter Summary ---
Author Author [facility] Organization [facility] Address Unknown Phone Unavailable Care Team Providers Care Registry Np Name Role Phone Della Cuellar MD PCP Reason for Visit * Reason Comments Hyperbaric Encounter Details Date Type Department Care Team Description 02/23/2018 Hospital Outpatient Burn and Wound Casey Schneider MD Encounter Clinic [address] [place] [address] [address] [place] [address] [phone] Ike Vines, DO [address] [place] [address] [phone] Social History Tobacco Use Types Packs/Day Years Used Date Never Smoker Smokeless Tobacco: Never Used Alcohol Use Drinks/Week oz/Week Comments No Sex Assigned at Date Recorded Not on file as of this encounter Last Filed Vital Signs Vital Sign Reading Time Taken Blood Pressure - - Pulse - - Temperature 36.6 C (97.9 F) 02/23/2018 1:20 PM CDT Respiratory Rate - - [...] 03/02/2018 Units/ sodium bicarbonate feeding tube PRN (Music Internship 650 mg(#) (KU CLOG from Rx) (Occluded [...] as of this encounter Progress Notes * Ike Gregg, - 02/23/2018 3:15 PM CDT Formatting of this note may be different from the original. Name:Beata Kaiser :1965 Age: 52 y.o. Date of Service: 02/23/2018 History of Present Illness Compromised Skin Graft/Flap Allergies Allergen Reactions Cephalexin SEE COMMENTS Face gets red, feels really hot, has tolerated penicillin Vitals: 02/23/18 1320 Temp: 36.6 C (97.9 F) There is no height or weight on file to calculate BMI. Review of System Review of Systems Physical Exam Pt without complaint or issue today. Pre Procedure Ear Exam: Deferred Impression Indications: Compromised Skin Graft/Flap Plan Hyperbaric Treatment Number: 16 of Total Treatments: 20 Procedure Decent Rate: 2 Air Break 1: 1415 Decent Rate: 2 Treatment Length: 106-135 Post Procedure Post Procedure Ear Exam: Deferred Tolerated: Pt had no adverse events and tolerated descent and ascent without difficulty. I was present for the entire dive. 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
--- OUTSIDE RECORDS SUMMARY | 2018-03-06 21:59 | XMS REPORT | Encounter Summary ---
Author Author [facility] Organization [facility] Address Unknown Phone Unavailable Care Team Providers Care Game Advisor Name Role Phone Della Cuellar MD PCP Reason for Visit * Reason Comments Hyperbaric Encounter Details Date Type Department Care Team Description 02/17/2018 Hospital Outpatient Burn and Wound aCsey Schneider MD Encounter Clinic [address] [place] [address] [address] [place] [address] [phone] T Naga brown MD [address] [place] [address] [phone] Social History Tobacco Use Types Packs/Day Years Used Date Never Smoker Smokeless Tobacco: Never Used Alcohol Use Drinks/Week oz/Week Comments No Sex Assigned at Date Recorded Not on file as of this encounter Last Filed Vital Signs Vital Sign Reading Time Taken Blood Pressure 160/79 02/17/2018 1:00 PM CDT Pulse 130 02/17/2018 1:00 PM CDT Temperature 36.7 C (98.1 F) 02/17/2018 1:00 PM CDT Respiratory Rate 20 02/17/2018 1:00 PM CDT Oxygen Saturation 100% 02/17/2018 1:00 PM CDT Inhaled Oxygen - - Concentration [...] 03/02/2018 Units/ sodium bicarbonate feeding tube PRN (Studio Manager 650 mg(#) (KU CLOG from Rx) [...] Progress Notes * Naga Irby MD - 02/17/2018 4:59 PM CDT Formatting of this note may be different from the original. Name:Beata Kaiser :1965 Age: 52 y.o. Date of Service: 02/17/2018 History of Present Illness 52 yo female here for HBO for compromised skin flap. Denies ear pain. States wound about the same. No pain. Allergies Allergen Reactions Cephalexin SEE COMMENTS Face gets red, feels really hot, has tolerated penicillin Vitals: 02/17/18 1300 BP: 160/79 Pulse: (!) 130 Resp: 20 Temp: 36.7 C (98.1 F) TempSrc: Oral SpO2: 100% There is no height or weight on file to calculate BMI. Review of System Review of Systems Physical Exam NAD A&OX4 Chronically ill appearing Normal resp effort Pre Procedure Ear Exam: Impression Indications: Compromised Skin Graft/Flap Plan Hyperbaric Treatment Number: 12 of Total Treatments: 20 Procedure Decent Rate: 2 Air Break 1: 1410 Decent Rate: 2 Treatment Length: 106-135 Post Procedure Post Procedure Ear Exam: Tolerated: Descent and Ascent w/o difficulty. No [...]
--- OUTSIDE RECORDS SUMMARY | 2018-03-06 21:59 | XMS REPORT | Encounter Summary ---
Author Author [facility] Organization [facility] Address Unknown Phone Unavailable Care Team Providers Care Guide Cruise Name Role Phone Della Cuellar MD PCP Reason for Visit * Reason Comments Hyperbaric Encounter Details Date Type Department Care Team Description 02/18/2018 Hospital Outpatient Burn and Wound Casey Schneider MD Encounter Clinic [address] [place] [address] [address] [place] [address] [phone] Aron Matthews MD [address] [place] [address] [phone] Social History Tobacco Use Types Packs/Day Years Used Date Never Smoker Smokeless Tobacco: Never Used Alcohol Use Drinks/Week oz/Week Comments No Sex Assigned at Date Recorded Not on file as of this encounter Last Filed Vital Signs Vital Sign Reading Time Taken Blood Pressure 135/65 02/18/2018 1:28 PM CDT Pulse 92 02/18/2018 1:28 PM CDT Temperature 37.1 C (98.8 F) 02/18/2018 1:28 PM CDT Respiratory Rate 20 02/18/2018 1:28 PM CDT Oxygen Saturation 100% 02/18/2018 1:28 PM CDT Inhaled Oxygen - - Concentration [...] 03/02/2018 Units/ sodium bicarbonate feeding tube PRN (Diaper Folder 650 mg(#) (KU CLOG from Rx) (Occluded [...] Progress Notes * Aron Sandra MD - 02/18/2018 4:13 PM CDT Formatting of this note may be different from the original. Name:Beata Kaiser :1965 Age: 52 y.o. Date of Service: 02/18/2018 History of Present Illness Pt w/o complaint today Allergies Allergen Reactions Cephalexin SEE COMMENTS Face gets red, feels really hot, has tolerated penicillin Vitals: 02/18/18 1328 BP: 135/65 Pulse: 92 Resp: 20 Temp: 37.1 C (98.8 F) TempSrc: Oral SpO2: 100% There is no height or weight on file to calculate BMI. Review of System Review of Systems Physical Exam Alert, cooperative Normal resp effort Impression Indications: Compromised Skin Graft/Flap Plan Hyperbaric Treatment Number: 13 of Total Treatments: 20 Procedure Decent Rate: 2 Air Break 1: 1420 Decent Rate: 2 Treatment Length: 106-135 Tolerated: [...]
--- OUTSIDE RECORDS SUMMARY | 2018-03-06 21:59 | XMS REPORT | Encounter Summary ---
Author Author [facility] Organization [facility] Address Unknown Phone Unavailable Care Team Providers Care Executor Of Estate Name Role Phone Della Cuellar MD PCP Reason for Visit * Reason Comments Wound Dehiscence Encounter Details Date Type Department Care Team Description 02/21/2018 Hospital Outpatient Burn and Wound Casey Schneider MD Encounter Clinic [address] [place] [address] [address] [place] [address] [phone] C Cristino lim MD [address] [place] [address] [phone] Social History Tobacco Use Types Packs/Day Years Used Date Never Smoker Smokeless Tobacco: Never Used Alcohol Use Drinks/Week oz/Week Comments No Sex Assigned at Date Recorded Not on file as of this encounter Last Filed Vital Signs Vital Sign Reading Time Taken Blood Pressure - - Pulse - - Temperature 36.9 C (98.4 F) 02/21/2018 1:25 PM CDT Respiratory Rate - - Oxygen [...] 03/02/2018 Units/ sodium bicarbonate feeding tube PRN (It Administrative Assistant 650 mg(#) (KU CLOG from Rx) (Occluded [...] Progress Notes * Cristino Perrin MD - 02/21/2018 6:40 PM CDT Formatting of this note may be different from the original. Name:Beata Kaiser :1965 Age: 52 y.o. Date of Service: 02/21/2018 History of Present Illness Doing OK - no new issues - Allergies Allergen Reactions Cephalexin SEE COMMENTS Face gets red, feels really hot, has tolerated penicillin Vitals: 02/21/18 1325 Temp: 36.9 C (98.4 F) There is no height or weight on file to calculate BMI. 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
--- OUTSIDE RECORDS SUMMARY | 2018-03-06 21:59 | XMS REPORT | Encounter Summary ---
Author Author [facility] Organization [facility] Address Unknown Phone Unavailable Care Team Providers Care Lab Manager Name Role Phone Della Cuellar MD PCP Reason for Visit * Reason Comments Hyperbaric Encounter Details Date Type Department Care Team Description 02/16/2018 Hospital Outpatient Burn and Wound Casey Schneider MD Encounter Clinic [address] [place] [address] [address] [place] [address] [phone] Ike Vines, DO [address] [place] [address] [phone] Social History Tobacco Use Types Packs/Day Years Used Date Never Smoker Smokeless Tobacco: Never Used Alcohol Use Drinks/Week oz/Week Comments No Sex Assigned at Date Recorded Not on file as of this encounter Last Filed Vital Signs Vital Sign Reading Time Taken Blood Pressure 119/54 02/16/2018 1:00 PM CDT Pulse 105 02/16/2018 1:00 PM CDT Temperature 37.1 C (98.8 F) 02/16/2018 1:00 PM CDT Respiratory Rate - - Oxygen [...] 03/02/2018 Units/ sodium bicarbonate feeding tube PRN (Network Coordinator 650 mg(#) (KU CLOG from Rx) (Occluded [...] this encounter Progress Notes * Ike Gregg, DO - 02/16/2018 1:20 PM CDT Formatting of this note may be different from the original. Name:Beata Kaiser :1965 Age: 52 y.o. Date of Service: 02/16/2018 History of Present Illness: Compromised Skin Graft Allergies Allergen Reactions Cephalexin SEE COMMENTS Face gets red, feels really hot, has tolerated penicillin Vitals: 02/16/18 1300 BP: 119/54 Pulse: 105 Temp: 37.1 C (98.8 F) There is no height or weight on file to calculate BMI. Review of System Review of Systems Physical Exam Pt doing well today. No fevers or other issues. Pre Procedure Ear Exam: Deferred Impression Problem Failed Skin Graft Indications: Compromised Skin Graft/Flap Plan Hyperbaric Treatment Number: Treatment Number: 11 of Total Treatments: 20 Procedure Decent Rate: Decent Rate: 2 Air Breaks: , , , , , Ascent Rate: Decent Rate: 2 Treatment Length: $$ Total Time: 106-135 Post Procedure Post Procedure Ear Exam: Deferred Tolerated: Pt had no adverse events and tolerated descent and ascent without difficulty. I was present for the entire dive. 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
--- OUTSIDE RECORDS SUMMARY | 2018-03-06 22:00 | XMS REPORT | Encounter Summary ---
Author Author [facility] Organization [facility] Address Unknown Phone Unavailable Care Team Providers Care Seo Intern Name Role Phone Della Cuellar MD PCP Reason for Visit * Reason Comments Hyperbaric Encounter Details Date Type Department Care Team Description 02/09/2018 Hospital Outpatient Burn and Wound Casey Schneider MD Encounter Clinic [address] [place] [address] [address] [place] [address] [phone] Ike Vines, DO [address] [place] [address] [place] [address] [phone] Social History Tobacco Use Types Packs/Day Years Used Date Never Smoker Smokeless Tobacco: Never Used Alcohol Use Drinks/Week oz/Week Comments No Sex Assigned at Date Recorded Not on file as of this encounter Last Filed Vital Signs Vital Sign Reading Time Taken Blood Pressure - - Pulse - - Temperature 36.7 C (98.1 F) 02/09/2018 1:25 PM CDT Respiratory Rate - - Oxygen Saturation - - Inhaled Oxygen - - Concentration Weight - - Height - - Body Mass Index - - in this encounter Functional Status Functional Status Response Date of Assessment Does the patient have a hearing impairment: No 01/14/2018 Does the patient have a visual impairment: [...] 03/02/2018 Units/ sodium bicarbonate feeding tube PRN (Semiconductor Engineer 650 mg(#) (KU CLOG from Rx) (Occluded [...] Progress Notes * Ike Gregg, DO - 02/09/2018 1:40 PM CDT Formatting of this note may be different from the original. Name:Beata Kaiser :1965 Age: 52 y.o. Date of Service: 02/09/2018 History of Present Illness Compromised skin graft flap Allergies Allergen Reactions Cephalexin SEE COMMENTS Face gets red, feels really hot, has tolerated penicillin Vitals: 02/09/18 1325 02/09/18 1349 Temp: 36.7 C (98.1 F) TempSrc: Oral There is no height or weight on file to calculate BMI. Review of System Review of Systems Physical Exam Pt doing well today. No complaints. Pre Procedure Ear Exam: No ear pain. Deferred Impression Plan Hyperbaric Treatment Number: Treatment Number: 8 of Total Treatments: 20 Procedure Decent Rate: Decent Rate: 2 Air Breaks: Air Break 1: 1420, , , , , Ascent Rate: Decent [...]
--- OUTSIDE RECORDS SUMMARY | 2018-03-06 22:00 | XMS REPORT | Encounter Summary ---
Author Author [facility] Organization [facility] Address Unknown Phone Unavailable Care Team Providers Care Solderer Name Role Phone Della Cuellar MD PCP Reason for Visit * Reason Comments Hyperbaric Encounter Details Date Type Department Care Team Description 02/10/2018 Hospital Outpatient Burn and Wound Casey Schneider MD Encounter Clinic [address] [place] [address] [address] [place] [address] [phone] T Naga brown MD [address] [place] [address] [phone] Social History Tobacco Use Types Packs/Day Years Used Date Never Smoker Smokeless Tobacco: Never Used Alcohol Use Drinks/Week oz/Week Comments No Sex Assigned at Date Recorded Not on file as of this encounter Last Filed Vital Signs Vital Sign Reading Time Taken Blood Pressure - - Pulse - - Temperature 36.7 C (98.1 F) 02/10/2018 1:45 PM CDT Respiratory Rate - - [...] 03/02/2018 Units/ sodium bicarbonate feeding tube PRN (Consulting Software Engineer 650 mg(#) (KU CLOG from Rx) [...] Progress Notes * Naga Irby MD - 02/10/2018 5:07 PM CDT Formatting of this note may be different from the original. Name:Beata Kaiser :1965 Age: 52 y.o. Date of Service: 02/10/2018 History of Present Illness 52 yo male here for HBO for compromised skin flap. No ear complaints. Allergies Allergen Reactions Cephalexin SEE COMMENTS Face gets red, feels really hot, has tolerated penicillin Vitals: 02/10/18 1345 Temp: 36.7 C (98.1 F) There is no height or weight on file to calculate BMI. Review of System Review of Systems Physical Exam NAD A&OX4 Normal resp effort Pre Procedure Ear Exam: Impression Indications: Compromised Skin Graft/Flap Plan Hyperbaric Treatment Number: Treatment Number: 9 of Total Treatments: 20 Procedure Decent Rate: Decent Rate: 2 Air Breaks: , , , , , Ascent Rate: Decent Rate: 2 Treatment Length: Post Procedure Post Procedure Ear Exam: Tolerated: [...]
--- OUTSIDE RECORDS SUMMARY | 2018-03-06 22:00 | XMS REPORT | Encounter Summary ---
Author Author [facility] Organization [facility] Address Unknown Phone Unavailable Care Team Providers Care Field Captain Name Role Phone Della Cuellar MD PCP Reason for Visit * Reason Comments Hyperbaric Encounter Details Date Type Department Care Team Description 02/15/2018 Hospital Outpatient Burn and Wound Casey Schneider MD Encounter Clinic [address] [place] [address] [address] [place] [address] [phone] Aron Matthews MD [address] [place] [address] [phone] Social History Tobacco Use Types Packs/Day Years Used Date Never Smoker Smokeless Tobacco: Never Used Alcohol Use Drinks/Week oz/Week Comments No Sex Assigned at Date Recorded Not on file as of this encounter Last Filed Vital Signs Vital Sign Reading Time Taken Blood Pressure 139/75 02/15/2018 1:20 PM CDT Pulse 120 02/15/2018 1:20 PM CDT Temperature 37.4 C (99.3 F) 02/15/2018 1:20 PM CDT Respiratory Rate 20 02/15/2018 1:20 PM CDT Oxygen Saturation 100% 02/15/2018 1:20 PM CDT Inhaled Oxygen - - Concentration [...] 03/02/2018 Units/ sodium bicarbonate feeding tube PRN (Building Rental Manager 650 mg(#) (KU CLOG from Rx) [...] Progress Notes * Aron Sandra MD - 02/15/2018 9:01 PM CDT Formatting of this note may be different from the original. Name:Beata Kaiser :1965 Age: 52 y.o. Date of Service: 02/15/2018 History of Present Illness Pt w/o complaint today Allergies Allergen Reactions Cephalexin SEE COMMENTS Face gets red, feels really hot, has tolerated penicillin Vitals: 02/15/18 1320 BP: 139/75 Pulse: 120 Resp: 20 Temp: 37.4 C (99.3 F) TempSrc: Oral SpO2: 100% There is no height or weight on file to calculate BMI. Review of System Review of Systems Physical Exam Alert, cooperative Normal resp effort Impression Indications: Compromised Skin Graft/Flap Plan Hyperbaric Treatment Number: Treatment Number: 10 of Total Treatments: 20 Procedure Decent Rate: Decent Rate: 2 Air Breaks: Air Break 1: 1400, Air Break 2: 1440, , , , Ascent Rate: Decent Rate: 2 Treatment Length: $$ Total Time: 106-135 Tolerated: Patient tolerated descent and ascent [...]
--- OUTSIDE RECORDS SUMMARY | 2018-03-06 22:01 | XMS REPORT | Encounter Summary ---
Author Author [facility] Organization [facility] Address Unknown Phone Unavailable Care Team Providers Care Laborer Steel Handling Name Role Phone Della Cuellar MD PCP Reason for Visit * Reason Comments Hyperbaric Encounter Details Date Type Department Care Team Description 02/04/2018 Hospital Outpatient Burn and Wound Tamiko Luther MD Encounter Clinic [address] [place] [address] [place] [address] [phone] C Cristino lim MD [address] [facility] [address] [place] [address] [phone] Social History Tobacco Use Types Packs/Day Years [...] 32 gauge x bedtime. Use with insulin 532" pen needle injections. levothyroxine (SYNTHROID) Take 175 [...] 03/02/2018 Units/ sodium bicarbonate feeding tube PRN (Assembler Wire Mesh Gate 650 mg(#) (KU CLOG from Rx) (Occluded [...] Progress Notes * Cristino Perrin MD - 02/04/2018 6:21 PM CDT Formatting of this note may be different from the original. Name:Beata Kaiser :1965 Age: 52 y.o. Date of Service: 02/04/2018 History of Present Illness Wound still looking bad - Allergies Allergen Reactions Cephalexin SEE COMMENTS Face gets red, feels really hot, has tolerated penicillin There were no vitals filed for this visit. There is no height or weight on file to calculate BMI. Review of System Review of Systems Constitutional: Negative for fever. HENT: Negative for ear pain and sinus pain. Cardiovascular: Positive for leg swelling. Musculoskeletal: Positive for arthralgias, gait problem and joint swelling. Skin: Positive for color change and wound. Physical Exam Neuro - non -focal Resp - no distress CV - RR Wound - unchanged per notes - Impression Indications: Compromised Skin Graft/Flap Plan Hyperbaric Treatment Number: Treatment Number: 5 of Total Treatments: 20 Procedure Decent Rate: Decent Rate: 2 Air Breaks: Air Break 1: 1420, , , , , Ascent Rate: Decent Rate: 2 Treatment Length: $$ Total Time: 106-135 Tolerated: Tolerated: Pt tolerated the ascent and decent without any issues - No O2 toxicity - I supervised the entire treatment Plan: Continue Protocol in this encounter Plan of Treatment Date Type Specialty Care Team Description 03/01/2018 Procedure Pass Cardiothoracic Surgery as of this encounter Visit Diagnoses 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
--- OUTSIDE RECORDS SUMMARY | 2018-03-06 22:01 | XMS REPORT | Encounter Summary ---
Author Author [facility] Organization [facility] Address Unknown Phone Unavailable Care Team Providers Care Kindergartners Helper Name Role Phone Della Cuellar MD PCP Reason for Visit * Reason Comments Hyperbaric Encounter Details Date Type Department Care Team Description 02/07/2018 Hospital Outpatient Burn and Wound Casey Schneider MD Encounter Clinic [address] [place] [address] [address] [place] [address] [phone] Aron Matthews MD [address] [place] [address] [phone] Social History Tobacco Use Types Packs/Day Years Used Date Never Smoker Smokeless Tobacco: Never Used Alcohol Use Drinks/Week oz/Week Comments No Sex Assigned at Date Recorded Not on file as of this encounter Last Filed Vital Signs Vital Sign Reading Time Taken Blood Pressure - - Pulse - - Temperature 36.8 C (98.3 F) 02/07/2018 1:25 PM CDT Respiratory Rate 18 02/07/2018 1:20 AM CDT Oxygen Saturation 94% 02/07/2018 1:20 AM CDT Inhaled Oxygen - - Concentration Weight [...] 03/02/2018 Units/ sodium bicarbonate feeding tube PRN (Supervisor Paste Mixing 650 mg(#) (KU CLOG from Rx) (Occluded [...] Progress Notes * Aron Sandra MD - 02/07/2018 5:38 PM CDT Formatting of this note may be different from the original. Name:Beata Kaiser :1965 Age: 52 y.o. Date of Service: 02/07/2018 History of Present Illness Pt reports left ear still feels "plugged up", does not think any cerumen has come out in spite of drops being placed No other concerns today Allergies Allergen Reactions Cephalexin SEE COMMENTS Face gets red, feels really hot, has tolerated penicillin Vitals: 02/07/18 0120 02/07/18 1300 02/07/18 1325 Resp: 18 Temp: 36.8 C (98.3 F) 36.8 C (98.3 F) SpO2: 94% There is no height or weight on file to calculate BMI. Review of System Review of Systems Physical Exam Alert, cooperative L ear w cerumen impaction R TM visible and clear Impression Indications: Compromised Skin Graft/Flap Plan Hyperbaric Treatment Number: Treatment Number: 6 of Total Treatments: 20 Procedure Decent Rate: Decent Rate: 2 Air Breaks: Air Break 1: 1420, , , , , Ascent Rate: Decent Rate: 2 Treatment Length: $$ Total Time: 106-135 Tolerated: Patient tolerated descent and ascent w/o troubles, no signs of o2 toxicity, I supervised the treatment. 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
--- OUTSIDE RECORDS SUMMARY | 2018-03-06 22:01 | XMS REPORT | Encounter Summary ---
Author Author [facility] Organization [facility] Address Unknown Phone Unavailable Care Team Providers Care Molecular Pathologist Name Role Phone Della Cuellar MD PCP Reason for Visit * Reason Comments Hyperbaric Encounter Details Date Type Department Care Team Description 02/08/2018 Hospital Outpatient Burn and Wound Casey Schneider MD Encounter Clinic [address] [place] [address] [address] [place] [address] [phone] Aron Matthews MD [address] [place] [address] [phone] Social History Tobacco Use Types Packs/Day Years Used Date Never Smoker Smokeless Tobacco: Never Used Alcohol Use Drinks/Week oz/Week Comments No Sex Assigned at Date Recorded Not on file as of this encounter Last Filed Vital Signs Vital Sign Reading Time Taken Blood Pressure - - Pulse - - Temperature 36.7 C (98.1 F) 02/08/2018 1:34 PM CDT Respiratory Rate - - Oxygen [...] 03/02/2018 Units/ sodium bicarbonate feeding tube PRN (Pipe Assembly Worker 650 mg(#) (KU CLOG from Rx) [...] Progress Notes * Aron Sandra MD - 02/08/2018 9:26 PM CDT Formatting of this note may be different from the original. Name:Beata Kaiser :1965 Age: 52 y.o. Date of Service: 02/08/2018 History of Present Illness Pt w/o complaint today Allergies Allergen Reactions Cephalexin SEE COMMENTS Face gets red, feels really hot, has tolerated penicillin Vitals: 02/08/18 1334 Temp: 36.7 C (98.1 F) TempSrc: Oral There is no height or weight on file to calculate BMI. Review of System Review of Systems Physical Exam Alert, cooperative Normal resp effort Impression Indications: Compromised Skin Graft/Flap Plan Hyperbaric Treatment Number: Treatment Number: 7 of Total Treatments: 20 Procedure Decent Rate: Decent Rate: 2 Air Breaks: Air Break 1: 1425, , , , , Ascent Rate: Decent [...]
--- OUTSIDE RECORDS SUMMARY | 2018-03-06 22:01 | XMS REPORT | Encounter Summary ---
Author Author [facility] Organization [facility] Address Unknown Phone Unavailable Care Team Providers Care Diesel Retrofit Designer Name Role Phone Della Cuellar MD PCP Reason for Visit * Reason Comments Hyperbaric Encounter Details Date Type Department Care Team Description 02/03/2018 Hospital Outpatient Burn and Wound Tamiko Luther MD Encounter Clinic [address] [place] [address] [place] [address] [phone] Naga Bush MD [address] [facility] [address] [place] [address] [phone] Social History Tobacco Use Types Packs/Day Years Used Date Never Smoker Smokeless Tobacco: Never Used Alcohol Use Drinks/Week oz/Week Comments No Sex Assigned at Date Recorded Not on file as of this encounter Last Filed Vital Signs Vital Sign Reading Time Taken Blood Pressure 133/61 02/03/2018 3:10 PM CDT Pulse 125 02/03/2018 3:10 PM CDT Temperature 37.3 C (99.1 F) 02/03/2018 3:10 PM CDT Respiratory Rate - - Oxygen Saturation - - Inhaled Oxygen - - Concentration Weight 91.7 kg (202 lb 2.6 oz) 02/03/2018 3:10 PM CDT Height - - Body Mass Index 35.81 02/03/2018 3:10 PM CDT in this encounter Functional Status Functional [...] 03/02/2018 Units/ sodium bicarbonate feeding tube PRN (Order Planner 650 mg(#) ([facility] CLOG from Rx) (Occluded [...]
--- OUTSIDE RECORDS SUMMARY | 2018-03-06 22:02 | XMS REPORT | Encounter Summary ---
Author Author [facility] Organization [facility] Address Unknown Phone Unavailable Care Team Providers Care Psychological Assistant Name Role Phone Della Cuellar MD PCP Encounter Details Date Type Department Care Team Description 01/14/2018 Pharmacy Visit [facility] [address] [place] [address] Social History Tobacco Use Types Packs/Day Years [...]
--- OUTSIDE RECORDS SUMMARY | 2018-03-06 22:02 | XMS REPORT | Encounter Summary ---
Author Author [facility] Organization [facility] Address Unknown Phone Unavailable Care Team Providers Care Sped Teacher Name Role Phone Della Cuellar MD PCP Reason for Visit * Reason Comments Hyperbaric Encounter Details Date Type Department Care Team Description 02/02/2018 Hospital Outpatient Burn and Wound Casey Schneider MD Encounter Clinic [address] [place] [address] [address] [place] [address] [phone] Ike Vines, DO [address] [place] [address] [phone] Social History Tobacco Use Types Packs/Day Years Used Date Never Smoker Smokeless Tobacco: Never Used Alcohol Use Drinks/Week oz/Week Comments No Sex Assigned at Date Recorded Not on file as of this encounter Last Filed Vital Signs Vital Sign Reading Time Taken Blood Pressure - - Pulse - - Temperature 36.8 C (98.2 F) 02/02/2018 1:42 PM CDT Respiratory Rate - - Oxygen Saturation - - Inhaled Oxygen - - Concentration Weight 92.3 kg (203 lb 7.8 oz) 02/02/2018 1:42 PM CDT Height - - Body Mass Index 36.05 02/02/2018 1:42 PM CDT in this encounter Functional Status [...] 03/02/2018 Units/ sodium bicarbonate feeding tube PRN (Carroting Machine Operator 650 mg(#) ([facility] CLOG from Rx) (Occluded [...] encounter Progress Notes * Ike Gregg, - 02/02/2018 2:25 PM CDT Formatting of this note may be different from the original. Name:Beata Kaiser :1965 Age: 52 y.o. Date of Service: 02/02/2018 History of Present Illness Compromised skin graft and flap Allergies Allergen Reactions Cephalexin SEE COMMENTS Face gets red, feels really hot, has tolerated penicillin Vitals: 02/02/18 1342 Temp: 36.8 C (98.2 F) Weight: 92.3 kg (203 lb 7.8 oz) Body mass index is 36.05 kg/m. Review of System Review of Systems Physical Exam: No complaints today. No fever Pre Procedure Ear Exam: No ear pain. Deferred Impression Indications: Compromised Skin Graft/Flap Plan Hyperbaric Treatment Number: Treatment Number: 3 of Total Treatments: 20 Procedure Decent Rate: Decent Rate: 2 Air Breaks: , , , , , Ascent Rate: Decent Rate: 2 Treatment Length: $$ Total Time: 106-135 Post Procedure Post Procedure Ear Exam: No pain. Deferred Tolerated: Pt had no adverse events [...]
--- OUTSIDE RECORDS SUMMARY | 2018-03-06 22:02 | XMS REPORT | Encounter Summary ---
Author Author [facility] Organization [facility] Address Unknown Phone Unavailable Care Team Providers Care Infusion Rn Name Role Phone Della Cuellar MD PCP Encounter Details Date Type Department Care Team Description 01/14/2018 Pharm[facility] [id number] [place] [id number] Social History Tobacco Use Types Packs/Day Years [...]
--- OUTSIDE RECORDS SUMMARY | 2018-03-06 22:02 | XMS REPORT | Encounter Summary ---
Author Author [facility] Organization [facility] Address Unknown Phone Unavailable Care Team Providers Care Risk Advisor Name Role Phone Della Cuellar MD PCP Reason for Visit * Auth/Cert Status Reason Specialty Diagnoses / Referred By Referred To Procedures Contact Contact Diagnoses Acquired absence of left hip joint Encounter Details Date Type Department Care Team Description 02/01/2018 Hospital Outpatient Burn and Wound Casey Schneider MD Encounter Clinic [address] [facility] [address] [facility] [place] [address] [address] [place] [address] [phone] V Ramos mendoza MD [address] [place] [address] [phone] Social History Tobacco Use Types Packs/Day Years Used Date Never Smoker Smokeless Tobacco: Never Used Alcohol Use Drinks/Week oz/Week Comments No Sex Assigned at Date Recorded Not on file as of this encounter Last Filed Vital Signs Vital Sign Reading Time Taken Blood Pressure 156/74 02/01/2018 1:56 PM CDT Pulse 130 02/01/2018 1:56 PM CDT Temperature 37.9 C (100.2 F) 02/01/2018 1:56 PM CDT Respiratory Rate - - Oxygen Saturation - - Inhaled Oxygen - - Concentration Weight 90.7 kg (200 lb) 02/01/2018 1:56 PM CDT Height - - Body Mass Index 35.43 02/01/2018 1:56 PM CDT in this encounter Functional Status [...] 03/02/2018 Units/ sodium bicarbonate feeding tube PRN (Armature Straightener 650 mg(#) ([facility] CLOG from Rx) (Occluded [...]
--- OUTSIDE RECORDS SUMMARY | 2018-03-06 22:02 | XMS REPORT | Encounter Summary ---
Author Author [facility] Organization [facility] Address Unknown Phone Unavailable Care Team Providers Care Mechanical Drawing Teacher Name Role Phone Della Cuellar MD PCP Reason for Referral * (Routine) Status Reason Specialty Diagnoses / Referred By Referred To Procedures Contact Contact New Request Diagnoses Casey Schneider MD Failure of [address] [place] [address] rocedures Phone: [employer] [phone] MEDICINE ORDER Reason for Visit * Reason Comments Hyperbaric * Auth/Cert Status Reason Specialty Diagnoses / Referred By Referred To Procedures Contact Contact Diagnoses Acquired absence of left hip joint Encounter Details Date Type Department Care Team Description 01/31/2018 Hospital Outpatient Burn and Wound Casey Schneider MD Encounter Clinic [address] [place] [address] [address] [place] [address] [phone] C Cristino lim MD [address] [place] [address] [phone] Social History Tobacco Use Types Packs/Day Years Used Date Never Smoker Smokeless Tobacco: Never Used Alcohol Use Drinks/Week oz/Week Comments No Sex Assigned at Date Recorded Not on file as of this encounter Last Filed Vital Signs Vital Sign Reading Time Taken Blood Pressure 139/63 01/31/2018 4:10 PM CDT Pulse 123 01/31/2018 4:10 PM CDT Temperature 36.9 C (98.4 F) 01/31/2018 4:10 PM CDT Respiratory Rate 18 01/31/2018 4:10 PM CDT Oxygen Saturation 98% 01/31/2018 4:10 PM CDT Inhaled Oxygen - - Concentration [...] impairment: No 12/03/2017 as of this encounter Discharge Instructions * Patient Instructions - Albert Bui RN - 01/31/2018 4:06 PM CDT Orientation to the Hyperbaric Unit Patient and/or family members may tour the hyperbaric suite Waiting room is available for family members during patient treatment Personal items will be secured Communication during treatment is done with the chamber phone or cue cards Grounding strap or EKG patch will be used during each treatment Heart Monitor is used during first treatment and per physicians orders Glasses may be worn / hard contacts removed Use the restroom prior to treatment/patients may take urinal into chamber Plastics bottles containing water or juice can be taken in the chamber Movies/TV will be available during treatment Ear exams are done to assess for changes in the ear drum before and after treatment Patient is advised to call the hyperbaric unit at if treatment must be canceled due to weather condition or illness Prohibited Chamber Items Products containing alcohol or flammable contents ? Hairspray/Hair products/Hair extensions ? Make up/[place] ? Perfume ? Body lotion ? Fresh Nail upper sorbian Jewelry ? Watches/Rings/Necklaces ? Earrings ? Body piercings Medication Patches ? Nicotine/ Hormone/Pain/ Control Electronic Devices ? Cell phone ? Pager ? Video game ? IPOD/DVD Player/E-[place]/IPAD/Laptop Other ? Hearing aids ? Dentures ? Batteries ? Metal Objects ? Car keys Tobacco Products ? Cigarettes/Cigars/Pipes ? Proced Tech/Matches ? Chewable tobacco products and pouches Clothing ? Undergarments ? Socks/shoes ? Hand warmers ? Gloves/Hats/[place]arves Other ? Stuffed animals ? Facial tissue or paper towel Allowed Chamber Items Hospital provided water / juice Hospital provided linen/gown/id band Pre-Treatment Teaching Minimize ear pain or trauma ? Nose pinch/swallow ? Chewing motion/moving jaw side to side ? Yawning ? Sipping on water Minimize risk of oxygen toxicity ? Limit alcohol intake to 2 drinks per day, avoid late night drinking ? Notify hyperbaric physician of any medications you are currently taking Notify RN of the following symptoms during treatment ? Onset of nausea ? Strange taste in mouth ? Onset of strange smell ? Hiccups ? Twitching of lips/cheeks/nose ? Hallucinations ? Onset of visual changes ? Onset of heart pounding ? Anxiety or agitation Claustrophobia ? Relaxation techniques ? Medication as ordered by physician ? Patient has the right to exit chamber if anxiety continues ? A staff member is always in the room during treatment Temperature greater than 100 F / 37.8 C ? Patient fever may be treated with acetaminophen or ibuprofen ? Patient will not undergo treatment with uncontrolled fever greater than 100 F / 37.8 C Blood Glucose ? Encourage full meal prior to treatment ? Finger stick blood sugar per glucose testing device should be greater than 120mg/dl prior to treatment o 4 oz. juice may be given orally or via feeding tube if blood sugar is below 100mg/dl o Staff will notify physician for further orders if repeat level is below 100mg/ dl o 4 oz. juice may be sent into the chamber with patient Special Considerations Implanted medical office secretary serial numbers will be cross checked for Hyperbaric treatment safety ? Pacemaker ? Defibrillator ? Pain pump ? Nerve stimulator Smoking ? Stop smoking to maximize healing ? No smoking products allowed in the hyperbaric suite o Tobacco / Cigarettes o Lighters / Matches Anxiety related to feelings of confinement associated with the hyperbaric oxygen chamber. Goal: Patient will tolerate the hyperbaric oxygen therapy treatment. Actions: ? Patient interaction: o Address patient calmly. o Establish eye contact with the patient. o Reassure patient that he/she is safe. ? Assess patient for any history of confinement anxiety. ? Engage patient in problem-solving his/her feelings of confinement anxiety. ? Identify barriers of learning. o Involve Timber Harvester Operator if indicated o Apply age-specific teaching o Consider cultural/methodist factors o Assess readiness to learn ? Implement preventative measures as appropriate: o Education o Chamber tour o Anti-anxiety medication o Eliminate preconceived notions o Empower patient; he or she is in charge and may request to end treatment at anytime. o Offer divers ional activities; TV, music, books on tape, family member chamber side. o Assure patient of nurse presence throughout treatment. ? Prior to, during and after the hyperbaric oxygen therapy treatment, monitor and assess for signs and symptoms of confinement anxiety. ? Notify hyperbaric physician of patients response to the anti-anxiety measures and ability to tolerate confinement. ? Document results of interventions. ? Pain related to associated medical problems. in this encounter Medications at Time of [...] 03/02/2018 Units/ sodium bicarbonate feeding tube PRN (File System Installer 650 mg(#) ([facility] CLOG from Rx) ([place]ccluded [...] Progress Notes * Cristino Perrin MD - 01/31/2018 6:39 PM CDT Formatting of this note may be different from the original. Name:Beata Kaiser :1965 Age: 52 y.o. Date of Service: 01/31/2018 History of Present Illness First treatment today - seen by Wy[facility] and consented while at Rehab Allergies Allergen Reactions Cephalexin SEE COMMENTS Face gets red, feels really hot, has tolerated penicillin Vitals: 01/31/18 1610 BP: 139/63 Pulse: (!) 123 Resp: 18 Temp: 36.9 C (98.4 F) TempSrc: Oral SpO2: 98% There is no height or weight on file to calculate BMI. Review of System Review of Systems Constitutional: Positive for fever. HENT: Negative for ear pain and sinus pain. Respiratory: Negative for shortness of breath. Skin: Positive for wound. Physical Exam Neuro - non-focal Resp - no distress CV - RR Wounds dressed Impression Indications: Compromised Skin Graft/Flap Plan Hyperbaric Treatment Number: Treatment Number: 1 of Total Treatments: 20 Procedure Decent Rate: Decent Rate: 2 Air Breaks: , , , , , Ascent Rate: Decent Rate: 2 Treatment Length: $$ Total Time: 106-135 Tolerated: Pt tolerated the ascent and decent without any issues - No O2 toxicity I supervised the entire visit. 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
--- NOTE | 2018-03-06 22:04 | ED General ---
General Chief Complaint: General Problems/Pain Stated Complaint: LOW HEMOGLOBIN Nursing Triage Note: PT BROUGHT IN BY EMS WITH COMPLAINT OF LOW HGB. PER HOME HEALTH NURSE, PT HAD BLOOD DRAW TODAY AND HGB WAS 6.8. PTS MANAGING DR AT WAS CALLED, AND INSTRUCTED THEM TO HAVE PT PRESENT TO NEAREST ER. PT HAD LEFT LEG/HIP AMPUTATION ON 12/14 Nursing Sepsis Screen: No Definite Risk (KIRA HANEY STUDENT) History of Present Illness Date Seen by Provider: Mar 06, 2018 Time Seen by Provider: 21:30 Initial Comments Patient is a 52-year-old female who presents to the emergency room with complaints of low hemoglobin. She was sent to the emergency room by her home health nurse for low hemoglobin of 6.8. 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 Since then she has been battling low hemoglobin, she reports having to have a blood transfusion prior to this episode. She has multiple wounds at different stages of healing from the surgery and has a colostomy and indwelling catheter after result of the surgery. Associated Systoms: Denies Symptoms (KIRA HANEY STUDENT) Allergies and Home Medications Allergies Coded Allergies: cephalexin (Unverified Allergy, Mild, FACE GETS RED, FEELS REALLY HOT, ) Home Medications Aspirin 81 Mg Tablet.dr, 81 MG PO DAILY, (Reported) Bupropion Hcl 150 Mg Tablet, 150 MG PO BID, (Reported) Buspirone Hcl 10 Mg Tablet, 30 MG PO BID, (Reported) Dapagliflozin Propanediol 10 Mg Tablet, 10 MG PO DAILY, (Reported) Estradiol 1 Mg Tablet, 1 MG PO DAILY, (Reported) Levothyroxine Sodium 150 Mcg Tablet, 150 MCG PO DAILY, (Reported) Lovastatin 40 Mg Tablet, 40 MG PO DAILY, (Reported) Metformin HCl 1,000 Mg Tablet, 1,000 MG PO BID, (Reported) Pantoprazole Sodium 40 Mg Tablet.dr, 40 MG PO DAILY, (Reported) Potassium Chloride 10 Meq Capcr, 10 MEQ PO DAILY, (Reported) Rivaroxaban 15 Mg Tablet, 15 MG PO BID Prescribed by: ROLANDO ATWOOD on 11/22/17 2243 Patient Home Medication List Home Medication List Reviewed: Yes (KIRA HANEY STUDENT) Review of Systems Constitutional: see HPI; No chills EENTM: see HPI; No ear pain, No blurred vision Respiratory: see HPI; No cough Cardiovascular: see HPI; No chest pain Gastrointestinal: see HPI; No abdominal pain; other (colostomy) Genitourinary: see HPI; No decreased output; other (indwelling urinary catheter ) Musculoskeletal: see HPI; No back pain Skin: see HPI, change in color, other (weeping wounds from the amputation of her left hip and leg) Psychiatric/Neurological: See HPI; Denies Anxiety Hematologic/Lymphatic: See HPI, Anemia; Denies Blood Clots Immunological/Allergic: see HPI; denies food allergy (KIRA HANEY) Past Uuzxlxk-Gokfpf-Ofwkee Hx Past Med/Social Hx: Reviewed Nursing Past Med/Soc Hx (KIRA HANEY) Patient Social History Alcohol Use: Denies Use Recreational Drug Use: No Smoking Status: Never a Smoker 2nd Hand Smoke Exposure: No Recent Foreign Travel: No Contact w/Someone Who Travel: No Recent Infectious Disease Expo: No (KIRA HANEY) Immunizations Up To Date Date of Pneumonia Vaccine: May 07, 2015 Date of Influenza Vaccine: Jul 24, 2015 (KIRA HANEY) Past Medical History Surgeries: Yes (JAW SURGERY, LEFT HIP/LEG AMPUTATION) Section, Orthopedic Respiratory: No Cardiac: Yes High Cholesterol, Hypertension Neurological: No Reproductive Disorders: No Female Reproductive Disorders: Denies Sexually Transmitted Disease: No HIV/AIDS: No Gastrointestinal: No Arthritis, Chronic Back Pain Endocrine: Yes Hypothyroidsim, Diabetes, Non-Insulin dep Loss of Vision: Denies Hearing Impairment: Denies Cancer: Yes Bone Psychosocial: Yes Anxiety, Depression Integumentary: Yes (DRY SPOT ON LEG) Blood Disorders: No Adverse Reaction/Blood Tranf: No (KIRA HANEY) Family Medical History Reviewed Nursing Family Hx (KIRA HANEY) Physical Exam Vital Signs Vital Signs - First Documented 03/06/18 21:19 Temp 99.5 Pulse 125 Resp 20 B/P (MAP) 138/88 (105) O2 Delivery Room Air (AUGUSTUS ALBERTO) Vital Signs Capillary Refill : Less Than 3 Seconds (KIRA HANEY) General Appearance: WD/WN Eyes: Bilateral Eye Normal Inspection, Bilateral Eye PERRL, Bilateral Eye EOMI HEENT: TMs Normal, Normal ENT Inspection, Pharynx Normal Neck: Full Range of Motion, Normal Inspection, Non Tender, Supple Respiratory: Lungs Clear, Normal Breath Sounds, No Accessory Muscle Use Cardiovascular: No Gallop, No JVD, No Murmur, Tachycardia, Other (edema in the right lower extremity) Gastrointestinal: Normal Bowel Sounds, No Organomegaly, No Pulsatile Mass, Non Tender, Soft Rectal: Normal Exam, Normal Rectal Tone, Heme Negative Stool Back: Normal Inspection, No CVA Tenderness, No Vertebral Tenderness Extremity: Normal Capillary Refill, Normal Inspection, Non Tender, No Calf Tenderness; No Calf Tenderness; Pedal Edema Neurologic/Psychiatric: Alert, Oriented x3, Normal Mood/Affect Skin: Other (she has multiple areas of different stages of wound healing, this is a result of her amputation of the left hip and left leg.) Lymphatic: No Adenopathy (KIRA HANEY STUDENT) Focused Exam Lactate Level 03/06/18 21:24: Lactic Acid Level 2.88*H (AUGUSTUS ALBERTO) Lactic Acid Level Laboratory Tests Test 03/06/18 21:24 Lactic Acid Level 2.88 MMOL/L (0.50-2.00) *H (AUGUSTUS ALBERTO) Progress/Results/Core Measures Suspected Sepsis Recent Fever Within 48 Hours: No Infection Criteria Present: None New/Unexplained Altered Menta: No Sepsis Screen: No Definite Risk SIRS Temperature:99.5 Pulse: 125 Respiratory Rate: 20 Laboratory Tests 03/06/18 21:24: White Blood Count 12.9H Blood Pressure 138 /88 Mean: 105 03/06/18 21:24: Lactic Acid Level 2.88*H Laboratory Tests 03/06/18 21:24: Creatinine 0.77, Platelet Count 559H, Total Bilirubin 0.2 (KIRA HANEY STUDENT) Results/Orders Lab Results Laboratory Tests Test 03/06/18 21:24 03/06/18 22:00 Range/Units White Blood Count 12.9 H 4.3-11.0 10^3/uL Red Blood Count 2.77 L 4.35-5.85 10^6/uL Hemoglobin 6.9 *L 11.5-16.0 G/DL Hematocrit 23 L 35-52 % Mean Corpuscular Volume 83 80-99 FL Mean Corpuscular Hemoglobin 25 25-34 PG Mean Corpuscular Hemoglobin Concent 30 L 32-36 G/DL Red Cell Distribution Width 19.9 H 10.0-14.5 % Platelet Count 559 H 130-400 10^3/uL Mean Platelet Volume 8.4 7.4-10.4 FL Neutrophils (%) (Auto) 76 H 42-75 % Lymphocytes (%) (Auto) 9 L 12-44 % Monocytes (%) (Auto) 12 0-12 % Eosinophils (%) (Auto) 3 0-10 % Basophils (%) (Auto) 0 0-10 % Neutrophils # (Auto) 9.8 H 1.8-7.8 X 10^3 Lymphocytes # (Auto) 1.1 1.0-4.0 X 10^3 Monocytes # (Auto) 1.5 H 0.0-1.0 X 10^3 Eosinophils # (Auto) 0.4 H 0.0-0.3 10^3/uL Basophils # (Auto) 0.0 0.0-0.1 10^3/uL Sodium Level 137 135-145 MMOL/L Potassium Level 4.5 3.6-5.0 MMOL/L Chloride Level 103 98-107 MMOL/L Carbon Dioxide Level 23 21-32 MMOL/L Anion Gap 11 5-14 MMOL/L Blood Urea Nitrogen 10 7-18 MG/DL Creatinine 0.77 0.60-1.30 MG/DL Estimat Glomerular Filtration Rate > 60 BUN/Creatinine Ratio 13 Glucose Level 113 H 70-105 MG/DL Lactic Acid Level 2.88 *H 0.50-2.00 MMOL/L Calcium Level 8.6 8.5-10.1 MG/DL Total Bilirubin 0.2 0.1-1.0 MG/DL Aspartate Amino Transf (AST/SGOT) 139 H 5-34 U/L Alanine Aminotransferase (ALT/SGPT) 68 H 0-55 U/L Alkaline Phosphatase 186 H 40-136 U/L Total Protein 5.5 L 6.4-8.2 GM/DL Albumin 2.3 L 3.2-4.5 GM/DL Urine Color YELLOW Urine Clarity SLIGHTLY CLOUDY Urine pH 5 5-9 Urine Specific Wal[place] 1.015 L 1.016-1.022 Urine Protein 2+ H NEGATIVE Urine Glucose (UA) NEGATIVE NEGATIVE Urine Ketones NEGATIVE NEGATIVE Urine Nitrite NEGATIVE NEGATIVE Urine Bilirubin NEGATIVE NEGATIVE Urine Urobilinogen NORMAL NORMAL MG/DL Urine Leukocyte Esterase 2+ H NEGATIVE Urine RBC (Auto) 1+ H NEGATIVE Urine RBC 0-2 /HPF Urine WBC 10-25 H /HPF Urine Squamous Epithelial Cells 0-2 /HPF Urine Crystals NONE /LPF Urine Bacteria TRACE /HPF Urine Casts NONE /LPF Urine Mucus NEGATIVE /LPF Urine Yeast LARGE H /HPF Urine Culture Indicated YES (AUGUSTUS ALBERTO) My Orders Orders - AUGUSTUS ALBERTO Cbc With Automated Diff (03/06/18 21:35) Comprehensive Metabolic Panel (03/06/18 21:35) Lactic Acid Analyzer (03/06/18 21:35) Blood Culture (03/06/18 21:35) Ua Culture If Indicated (03/06/18 21:35) Chest 1 View, Ap/Pa Only (03/06/18 21:35) O2 (03/06/18 21:35) Saline Lock/Iv-Start (03/06/18 21:35) Saline Lock/Iv-Start (03/06/18 21:35) Vital Signs Adult Sepsis Patie Q15M (03/06/18 21:35) Remove Rings In Anticipation O (03/06/18 21:35) Saline Lock/Iv-Start (03/06/18 21:35) Urine Culture (03/06/18 22:00) (AUGUSTUS ALBERTO) Vital Signs/I&O 03/06/18 21:19 Temp 99.5 Pulse 125 Resp 20 B/P (MAP) 138/88 (105) O2 Delivery Room Air (AUGUSTUS ALBERTO) Vital Signs/I&O Capillary Refill : Less Than 3 Seconds (KIRA HANEY STUDENT) Blood Pressure Mean: 105 Progress Note : Time: 22:24 Progress Note I saw and examined the patient with Kira nurse practitioner and agree with his history, examination, findings and plan. It appears the patient was asymptomatic however some routine labs demonstrated again for the second time in the last couple weeks she is anemic probably requiring blood. She was sent out by home health nurse via EMS. She curiously is having some tachycardia and does have an indwelling catheter that was changed today. Her dressings are also changed. There is no sanguinous drainage on the wounds and the wounds appear to be intact. Her anemia is probably due to her recent surgical wound as well as sarcoma and ongoing treatment. She did not indicate that there was any plan to work this up any further or do anything different other than getting blood by her oncologist at [facility]. The patient's tachycardia prompted a septic workup which revealed a urinary tract infection. Patient is comfortable. Again some fluids. She does have a little anasarca secondary to probably protein loss to her chronic wounds. We will set her up upstairs to get some antibiotics either Levaquin, ciprofloxacin or if her cephalexin allergy is not real then we could consider Unasyn. She's got her blood in if her tachycardia has resolved with dry be reasonable to get her home on oral antibiotics as well as other than the lactate and tachycardia she's not in any real acute distress. (AUGUSTUS ALBERTO) Departure Communication (Admissions) Time/Spoke to Admitting Phy: 22:28 Dr. Peng at this time, he agrees with plans to admit for UTI, antibiotics, anemia, and blood transfusion. Time/Spoke to Consulting Phy: 22:28 (KIRA HANEY) Impression Primary Impression: Urinary tract infection Qualified Codes: T83.511A - Infection and inflammatory reaction due to indwelling urethral catheter, initial encounter; N39.0 - Urinary tract infection , site not specified Additional Impression: Anemia Qualified Codes: D64.9 - Anemia, unspecified Disposition: 09 ADMITTED INPATIENT Condition: Stable/Unchanged Admissions Decision to Admit Reason: Admit from ER (General) Decision to Admit/Date: Mar 06, 2018 Time/Decision to Admit Time: 22:28 (KIRA HANEY) Departure-Patient Inst. Referrals: HANNAH STYLES DO (PCP/Family) Primary Care Physician KIRA HANEY Mar 06, 2018 22:04 AUGUSTUS ALBERTO Mar 06, 2018 22:27
[2018-03-06 22:06] LABS: BILIRUBIN,URINE NEGATIVE (NEGATIVE); CLARITY,URINE SLIGHTLY CLOUDY; COLOR,URINE YELLOW; GLUCOSE, URINE (UA) NEGATIVE (NEGATIVE); KETONES,URINE NEGATIVE (NEGATIVE); LEUKOCYTE ESTERASE ,URINE 2+ (NEGATIVE); NITRITE,URINE NEGATIVE (NEGATIVE); PH,URINE 5 (5-9); PROTEIN,URINE 2+ (NEGATIVE); UROBILINOGEN,URINE NORMAL (NORMAL)
[2018-03-06 22:06] LABS: BASOPHILS % (AUTO) 0 % (0-10); EOSINOPHILS # (AUTO) 0.4 10^3/uL (0.0-0.3); EOSINOPHILS % (AUTO) 3 % (0-10); HEMATOCRIT 23 % (35-52); LYMPHOCYTES # (AUTO) 1.1 X 10^3 (1.0-4.0); LYMPHOCYTES % (AUTO) 9 % (12-44); MEAN CORPUSCULAR HEMOGLOBIN 25 PG (25-34); MEAN CORPUSCULAR HGB CONC 30 G/DL (32-36); MEAN CORPUSCULAR VOLUME 83 FL (80-99); MEAN PLATELET VOLUME 8.4 FL (7.4-10.4); MONOCYTES # (AUTO) 1.5 X 10^3 (0.0-1.0); MONOCYTES % (AUTO) 12 % (0-12); NEUTROPHILS # (AUTO) 9.8 X 10^3 (1.8-7.8); NEUTROPHILS % (AUTO) 76 % (42-75); PLATELET COUNT 559 10^3/uL (130-400); RED BLOOD COUNT 2.77 10^6/uL (4.35-5.85); RED CELL DISTRIBUTION WIDTH 19.9 % (10.0-14.5); WHITE BLOOD COUNT 12.9 10^3/uL (4.3-11.0)
[2018-03-06 22:08] LABS: HEMOGLOBIN 6.9 G/DL (11.5-16.0)
--- OUTSIDE RECORDS SUMMARY | 2018-03-06 22:08 | XMS REPORT | Encounter Summary ---
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
--- OUTSIDE RECORDS SUMMARY | 2018-03-06 22:08 | XMS REPORT | Encounter Summary ---
Author Author [facility] Organization [facility] Address Unknown Phone Unavailable Care Team Providers Care Senior Telecommunications Engineer Name Role Phone Della Cuellar MD PCP Reason for Visit * Auth/Cert Status Reason Specialty Diagnoses / Referred By Referred To Procedures Contact Contact Diagnoses Pelvic mass Pelvic mass [R19.00] Pelvic mass in female P rocedures MI INTERPELVIABDOMI NAL AMPUTATION CHEY PELVECTOMY Encounter Details Date Type Department Care Team Description 01/10/2018 Anesthesia Main Operating Room Sam Posadas MD Event [address] [facility] [address] [place] [address] [place] [address] [place] [address] [phone] Anesthesia Record Procedure Name Responsible Anesthesia Start Time Anesthesia Stop Time Anesthesiologist WOUND EXPLORATION LEFT Abigail Hoff MD 01/10/18 0921 01/10/18 1047 HEMIPELVECTOMY, IRRIGATION AND DEBRIDEMENT, WOUND VAC PLACEMENT (Left Hip) Date Time Event Comment 845 AN Equip Check 2017 920 Out of Pre Procedure 0921 Anes Start 0922 In Room 0926 An Start Data 0937 An Induction The patient was reevaluated immediately before moderate or deep sedation use and before anesthesia induction. 0938 An Intubation 0941 Anesthesia Ready 0946 Proc Start 0956 Quick Note Right lateral position. Pressure points padded. Bilateral breath sounds. 1001 Antibiotic Scheduled Zosyn 4.5g given. Charted on main NOV. Given 1039 An Extubation 1043 an stop data 1047 Handoff to RN I completed my SBAR handoff to the receiving nurse. 1047 An Stop Meds Name Total midazolam (VERSED) 1 mg/mL injection 2 mg fentaNYL PF (SUBLIMAZE) injection 50 mcg propofol (DIPRIVAN) 200 mg/ 20 mL 150 mg injection (VIAL) succinylcholine (ANECTINE) injection 100 mg (VIAL) ondansetron (ZOFRAN) injection 4 mg dexamethasone (DECADRON) 4 mg/mL 4 mg injection phenylephrine (SRINIVAS-SYNEPHRINE) 0.1 mg/mL 1,100 mcg injection (SYRINGE) lactated ringers infusion 700 mL * Name O2 N2O Inspired N2O Air Sevoflurane Inspired Sevoflurane * No blood administrations on file. Type Details Placement Removal Wounds 11/30/17; 0853; Left; Buttocks; Surgical 11/30/17 0853 by (NOT for Incision; Carlos Manuel Rosales Drain, Sutures, Bea, Hussain Pressure xeroform, 4x4's, and tegaderm. Injuries) Wounds 11/30/17; 1427; Right, Anterior; Neck; 11/30/17 1427 by (NOT for Surgical Incision Blanquita, Amanda Pressure Injuries) Wounds 12/14/17; 1748; Left; Abdomen; Ulcer 12/14/17 1748 by Manny, (NOT for (not from pressure) SANJAY Garcia Pressure Injuries) Wounds 12/30/17; 1002; Left, Anterior; Surgical 12/30/17 1002 by Matthew, (NOT for Incision; stump; Suture, ceci, telfa Eunice Pressure and iodine, 4x4, and tegaderm Injuries) Colostomy 12/30/17; 1209 (placed in the OR prior 12/30/17 1209 by Tre, to PACU); Right SANJAY Odell Wounds 01/10/18; Left, Inner, Posterior; 01/10/18 0000 by Ady, (NOT for Buttocks; Surgical Incision SANJAY Early Pressure Injuries) Wounds 01/10/18; 1100; Hip; Surgical Incision 01/10/18 1100 by Sury, (NOT for SANJAY Glover Pressure Injuries) Wounds 12/20/17; 1530; Right, Lower; Abdomen; 12/20/17 1530 by Sushil, 02/25/18 1505 by Lauri, (NOT for Moisture Associated Skin Damage; SANJAY Bryant RN Pressure 02/25/18; 1505 Injuries) Wounds 12/23/17; 1345; Left; Labia; 02/25/18; 12/23/17 1345 by Lilibeth, 1505 by Lauri, (NOT for 1505 SANJAY Cardoza, RN Pressure Injuries) Nasoduoden 12/28/17; Left Nare; 01/21/18; 0730 12/28/17 0000 by Mery, 01/21/18 0730 by huber Valdez RN Karissa PICC 12/30/17; 1722; Other (Comment), 12/30/17 1722 by Socrates, 02/18/18 1750 by Mina, Double Med/Surg (Unit 43.); SANJAY Patel RN, RN Lumen assisted by Cayla GEE.; Correct Patient, Correct Procedure, Correct Patient Position, Correct Equipment / Implants Available; Hand Hygiene, Cap , Mask, Eye Protection, Sterile Gown, Sterile Gloves, Full Body Sterile Drape; Chlorhexadine (CHG); Basilic, Right; 5 FR; Microintroducer Technique, Ultrasound, Lidocaine Prep; 8 mm (4.3% and 40% vein occupancy.); 1 (trimmed and inserted 38cm and arm circ is 32cm.); Chlorhexadine (CHG) impregnated sponge, Securement device; Emergent-Blood Return (Tip at the level of CAJ/proximal R atrium per green 3CG.); 02/18/18; 1750; Y ETT 01/10/18; 0938; Mask ventilation not 01/10/18 0938 by Cuauhtemoc, 1039 by Cuauhtemoc, attempted (0); Direct laryngoscopy, MD Sam Vargas MD Stylet; Single-Lumen, Cuffed; 7mm; Mac; 3; Oral; 1-Full view of the glottis; 1 insertion attempt; ETCO2 Detector, Auscultation; 21 centimeters; 01/10/18; 1039 Indwelling 01/10/18; 0950; Unit (Comment) (OR); 01/10/18 0950 by Sury, 02/11/18 1530 by Mina Urinary Urology; 20 FR; Regular (Two-way); SANJAY Glover RN Catheter 02/11/18; 1530 Negative 01/10/18; 1030; Left, Posterior (#1); 01/10/18 1030 by Sury, 02/24/18 1238 by Pressure Hip; 02/24/18 (removed by SANJAY Velasquez RN, Lindsey, RN Therapy and victim advocate); 1238 Drain in this encounter Social History Tobacco Use Types Packs/Day Years [...] impairment: No 12/03/2017 as of this encounter OR Notes * Anesthesia Postprocedure Evaluation - Ken Valdes, - 01/10/2018 12:08 PM CDT Post-Anesthesia Evaluation Name: Beata Kaiser : 1965 Age: 52 y.o. Sex: female Procedure Date: 01/10/2018 Procedure: Procedure(s): WOUND EXPLORATION LEFT HEMIPELVECTOMY, IRRIGATION AND DEBRIDEMENT, WOUND VAC PLACEMENT CYSTOGRAM, SHIRLEY CATHETER EXCHANGE Surgeon: Surgeon(s): Spencer Purcell MD Fontenot, Philip A, MD Templeton, Kimberly, MD Stumpff, MD Adrienne Post-Anesthesia Vitals BP: (116-127)/(68-74) Pulse: [92-96] Respirations: [9 PER MINUTE-13 PER MINUTE] SpO2: [92 %-100 %] O2 Delivery: None (Room Air) (01/10 1200) SpO2 Pulse: [91-96] Post Anesthesia Evaluation Note Evaluation location: Pre/Post Patient participation: recovered; patient participated in evaluation Level of consciousness: alert Pain management: adequate Hydration: normovolemia Temperature: 36.0C - 38.4C Airway patency: adequate Perioperative Events Perioperative events: no Post-op nausea and vomiting: no PONV Postoperative Status Cardiovascular status: hemodynamically stable Respiratory status: spontaneous ventilation Follow-up needed: none Perioperative Events Perioperative Event: No Emergency Case Activation: No Associated attestation - Denis Field MD - 01/10/2018 12:58 PM CDT Formatting of this note may be different from the original. ATTESTATION Post-Anesthesia Evaluation Attestation: I reviewed and agree the indicated post- anesthesia care was provided. Staff name: Denis Iyer MD Date: 01/10/2018 * Anesthesia Preprocedure Evaluation - Sam Posadas MD - 01/10/2018 8:33 AM CDT Formatting of this note may be different from the original. Anesthesia Pre-Procedure Evaluation Name: Beata Kaiser : 1965 Age: 52 y.o. Sex: female Procedure Date: 01/10/2018 Procedure: Procedure(s): WOUND EXPLORATION LEFT HEMIPELVECTOMY, IRRIGATION AND DEBRIDEMENT, WOUND VAC PLACEMENT Physical Assessment Vital Signs (last filed in past 24 hours): BP: 108/60 (01/10 522) Temp: 37.9 C (100.3 F) (01/10 522) Pulse: 112 (01/10 522) Respirations: 20 PER MINUTE (01/10 522) SpO2: 97 % (01/10 522) O2 Delivery: None (Room Air) (01/09 2200) Patient History Allergies Allergen Reactions Cephalexin SEE COMMENTS Face gets red, feels really hot, has tolerated penicillin Current Medications Medication Directions aspirin EC 81 mg tablet Take 81 mg by mouth daily. Take with food. buPROPion SR(+) (WELLBUTRIN-SR) 150 mg tablet Take 150 mg by mouth twice daily. busPIRone (BUSPAR) 30 mg tablet Take 30 mg by mouth twice daily. empagliflozin (JARDIANCE) 25 mg tab Take 1 tablet by mouth daily. gabapentin (NEURONTIN) 300 mg capsule Take 1 capsule by mouth three times daily. levothyroxine (SYNTHROID) 175 mcg tablet Take 175 mcg by mouth daily. lisinopril (PRINIVIL; ZESTRIL) 10 mg tablet Take 10 mg by mouth daily. lovastatin(+) (MEVACOR) 40 mg tablet Take 40 mg by mouth at bedtime daily. metFORMIN (GLUCOPHAGE) 1,000 mg tablet Take 1,000 mg by mouth twice daily. oxyCODONE (ROXICODONE, OXY-IR) 5 mg tablet Take 1-2 tablets by mouth every 4 hours as needed Earliest Fill Date: 12/03/17 potassium chloride SR (K-DUR) 10 mEq tablet Take 10 mEq by mouth daily. Take with a meal and a full glass of water. rivaroxaban (XARELTO) 15 mg tablet Take 15 mg by mouth twice daily. Take with food. senna/docusate (SENOKOT-S) 8.6/50 mg tablet Take 1 tablet by mouth twice daily. Review of Systems/Medical History Patient summary reviewed Nursing notes reviewed Pertinent labs reviewed PONV Screening: Female gender, Postoperative opioids and Non-smoker No history of anesthetic complications No family history of anesthetic complications Airway Previous anesthetic, easy ventilation with oral airway, grade 1 view with Mac 3 blade, 7.0ETT x 1 attempt. Pulmonary - negative Not a current smoker Cardiovascular Recent diagnostic studies: echocardiogram The left ventricle is normal in size and function, estimated ejection fraction is 55%. The right ventricle is normal in size and function. The left and right atria are normal in size. No significant valve disease is identified. Normal estimated PA systolic pressure. Exercise tolerance: >4 METS Beta Bello therapy: No Hypertension, poorly controlled No angina GI/Hepatic/Renal No GERD, No hx of liver disease No renal disease Neuro/Psych Chronic opioid use Psychiatric history Depression Musculoskeletal Back pain Endocrine/Other Diabetes, poorly controlled, type 2 Blood dyscrasia (on xarelto for leg DVT) Malignancy Physical Exam Airway Findings Mallampati: II TM distance: >3 FB Neck ROM: full Mouth opening: good Airway patency: adequate Dental Findings: Negative Increased risk for dental injury; pt advised Cardiovascular Findings: Rhythm: regular Rate: normal Pulmonary Findings: Breath sounds clear to auscultation. Abdominal Findings: Comments: Exam deferred Neurological Findings: Normal mental status Diagnostic Tests Hematology: Lab Results Component Value Date HGB 8.3 01/10/2018 HCT 24.2 01/10/2018 PLTCT 711 01/10/2018 WBC 9.2 01/10/2018 NEUT 64 01/10/2018 ANC 5.80 01/10/2018 LYMPH 12 12/29/2017 ALC 1.40 01/10/2018 CALVIN 12 01/10/2018 AMC 1.10 01/10/2018 EOSA 9 01/10/2018 ABC 0.00 01/10/2018 MCV 86.0 01/10/2018 MCH 29.3 01/10/2018 MCHC 34.0 01/10/2018 MPV 6.2 01/10/2018 RDW 15.8 01/10/2018 General Chemistry: Lab Results Component Value Date NA 135 01/10/2018 K 4.1 01/10/2018 CL 99 01/10/2018 CO2 29 01/10/2018 GAP 7 01/10/2018 BUN 16 01/10/2018 CR 0.60 01/10/2018 GLU 137 01/10/2018 CA 8.2 01/10/2018 ALBUMIN 2.2 01/07/2018 LACTIC 1.9 12/21/2017 OBSCA 1.07 12/19/2017 MG 1.8 01/03/2018 TOTBILI 0.2 01/07/2018 PO4 2.2 01/03/2018 Coagulation: Lab Results Component Value Date PTT 23.7 12/14/2017 INR 1.0 11/30/2017 Anesthesia Plan ASA score: 3 Plan: general Induction method: intravenous NPO status: acceptable Informed Consent Anesthetic plan and risks discussed with patient. Use of blood products discussed with patient; consented to blood products. Plan discussed with: anesthesiologist and resident. in this encounter Plan of Treatment Date Type Specialty Care Team Description 03/01/2018 Procedure Pass Cardiothoracic Surgery as of this encounter Visit Diagnoses Not on filein this encounter Administered Medications Medication Order MAR Action Action Date Dose Rate Site dexamethasone (DECADRON) injection Given 01/10/2018 4 mg Intravenous, INTRA-PROCEDURE MED, 10:07 CDT Starting 01/10/18 at 1007, Until Wed01/10/18 at 1050, Nausea/Vomiting Injectable, Anesthesia Intra-op fentaNYL citrate PF (SUBLIMAZE) Given 01/10/2018 50 mcg injection 09:48 CDT INTRA-PROCEDURE MED, Starting Wed01/10/18 at 0948, Until Wed01/10/18 at 1050, Pain Injectable, Anesthesia Intra-op midazolam (VERSED) injection Given 01/10/2018 2 mg Intravenous, INTRA-PROCEDURE MED, 09:18 CDT Starting Wed01/10/18 at 0918, Until Wed01/10/18 at 1050, Agitation Injectable, Anxiety Injectable, Anesthesia Intra-op ondansetron (ZOFRAN) injection Given 01/10/2018 4 mg Intravenous, INTRA-PROCEDURE MED, 10:28 CDT Starting Wed01/10/18 at 1028, Until Wed01/10/18 at 1050, Nausea/Vomiting Injectable, Anesthesia Intra-op phenylephrine in NS Injection Given 01/10/2018 200 mcg Intravenous, INTRA-PROCEDURE MED, 10:21 CDT Starting Wed01/10/18 at 0937, Until Wed01/10/18 at 1050, Symptomatic Hypotension, Anesthesia Intra-op Given 01/10/2018 100 mcg 10:26 CDT Given 01/10/2018 100 mcg 10:30 CDT propofol (DIPRIVAN) injection Given 01/10/2018 150 mg INTRA-PROCEDURE MED, Starting Mon 09:37 CDT 01/10/18 at 0937, Until Wed01/10/18 at 1050, Anesthesia Intra-op succinylcholine (ANECTINE) injection Given 01/10/2018 100 mg Intravenous, INTRA-PROCEDURE MED, 09:37 CDT Starting Wed01/10/18 at 0937, Until Wed01/10/18 at 1050, Anesthesia Intra-op in this encounter
[2018-03-06 22:13] LABS: BACTERIA,URINE TRACE /HPF; RBC,URINE 0-2 /HPF; SQUAMOUS EPITHELIAL CELL,UR 0-2 /HPF; YEAST,URINE LARGE /HPF
--- OUTSIDE RECORDS SUMMARY | 2018-03-06 22:15 | XMS REPORT | Encounter Summary ---
Author Author [facility] Organization [facility] Address Unknown Phone Unavailable Care Team Providers Care Chief Learning Officer Name Role Phone Della Cuellar MD PCP Reason for Visit * Auth/Cert Status Reason Specialty Diagnoses / Referred By Referred To Procedures Contact Contact Diagnoses Pelvic mass Pelvic mass [R19.00] Pelvic mass in female P rocedures GA INTERPELVIABDOMI NAL AMPUTATION JAMIL PELVECTOMY Encounter Details Date Type Department Care Team Description 01/10/2018 Surgery Main Operating Room Tamiko Luther MD WOUND EXPLORATION LEFT [address] HEMIPELVECTOMY, [place] [address] [address] AND [phone] [place] [address] DEBRIDEMENT, WOUND VAC [phone] PLACEMENT Social History Tobacco Use Types Packs/Day Years Used Date Never Smoker Smokeless Tobacco: Never Used Alcohol Use Drinks/Week oz/Week Comments No Sex Assigned at Date Recorded Not on file as of this encounter Last Filed Vital Signs Vital Sign Reading Time Taken Blood Pressure 128/80 01/14/2018 3:01 PM CDT Pulse 115 01/14/2018 3:01 PM CDT Temperature 36.8 C (98.2 F) 01/14/2018 3:01 PM CDT Respiratory Rate - - Oxygen Saturation 98% 01/14/2018 3:01 PM CDT Inhaled Oxygen - - Concentration Weight 102.3 kg (225 lb 8.5 oz) 01/14/2018 7:32 AM CDT Height 162.6 cm (5' 4") 12/30/2017 8:20 AM CDT Body Mass Index 38.71 01/14/2018 7:32 AM CDT in this encounter Functional Status [...] No 12/03/2017 as of this encounter Discharge Summaries * Adrienne Zarate MD - 01/14/2018 3:59 PM CDT Formatting of this note may be different from the original. Physician Discharge Summary Name: Beata Kaiser Date Of : 1965 Age: 52 years Admit date: 12/13/2017 Discharge date: 01/14/18 Attending Physician: Dr. Tamiko Luther Service: Surgery-Ortho Physician Summary completed by: Adrienne Zarate MD Reason for hospitalization: chondrosarcoma left pelvis Significant PMH: Past Medical History: Diagnosis Date Anxiety Back pain Depression DM (diabetes mellitus) (HCC) 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 Allergies: Cephalexin Brief Hospital Course: The patient was admitted with the following History of Present Illness: Beata Kaiser is a 52 y.o. female. Ms. Kaiser was referred by Bird Iraheta APRN , for evaluation of a mass along her left pelvis. Ms. Kaiser states that she has had LBP for over a year. She denies any history of injury to this. She underwent an MRI in June 2017, and her pain was thought to be due to DDD. She underwent 2 steroid injections without relief of her pain. She was scheduled for surgery on her back. She notes that the pain started to radiate down her LLE in August 2017 and frequently goes into her heel. She also notes paresthesias and numbness in this distribution. She has pain at all times, including at night. She has pain with sitting. She does not note much increase in her pain with weightbearing. She also notes that her LLE occasionally feels weak. She denies any bowel or bladder control issues but notes that she usually is now voiding small volumes. She denies any new pain elsewhere. She denies any fevers or chills. She denies any increased fatigue. She notes about a 2 month history of decreased appetite and has lost some weight. In September 2017 she noted onset of LLE swelling that has progressed. An ultrasound of her LLE was unremarkable for DVT. However, an MRI of her pelvis demonstrated a large mass with compression on her veins. The patient was taken to the OR on 11/29. The patient underwent open biopsy L pelvis. The pt was admitted post op for IVC filter placement secondary to dvt and pelvic mass. Also was seen by res of surgical teams to be involved in her hemipelvectomy including surg onc, vascular, urology. Cardiology was also consulted for pre op work up. 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 Pt was on heparin gtt during preoperative planning and transitioned by to her xarelto. She presents today for a hemipelvectomy scheduled for 12/14/17. These issues were addressed as follows: The patient was taken to the OR on 12/14. The patient underwent a left hemipelvectomy and jamil-sacrectomy, bladder neck repair, urethroplasty and repair of urethral injury, vaginal closure, and repair of the left common and external iliac vein. Postoperatively she was monitored in the ICU and was stable for transfer to the floor. Pain management was consulted for assistance with complex pain management. Infectious disease was consult after the patient had a continued leukocytosis and fevers and was placed on antibiotics for a UTI. Patient had issues with multiple loose stools and a colostomy was performed on 12/30/17 to aid with wound healing. The postoperative course was complicated by continued wound drainage and she was taken back to the OR on 01/10/18 for irrigation and debridement and wound vac placement. There were no obvious signs of infection of the wound however no obvious signs of healing given patient's poor nutritional status. She was started on tube feeds throughout her stay for nocturnal feeds. Psychiatry and psychology were consulted for coping and depression management. Endocrinology and internal medicine were consulted for ongoing medical management, hyponatremia and uncontrolled blood glucose. She developed several wounds along her abdominal panus and labia from significant swelling which wound team followed and provided dressing and ointment recommendations. Rehab medicine was consulted for post-acute rehab recommendations The patient was deemed ready for discharge on 01/14/18, and was sent to inpatient rehab with the instructions reproduced below. Admission Physical Exam notable for: General: AAOx3, NAD ENT: Oropharynx/Nasopharynx clear Respiratory: Unlabored respirations Cardio: RRR GI: soft, NT, ND Musculoskeletal: LLE- compartments soft, flexes/extends toes and ankle, foot warm and well perfused Neurologic: no focal deficits noted Admission Lab/Radiology studies notable for: L pelvic chondrosarcoma Surgical Procedures: L hemipelvectomy and hemisacrectomy Repair left of left common iliac and external iliac vein Bladder neck repair, urethroplasty with repair of urethral injury and vaginal closure Diverting colostomy Irrigation and Debridement left hemipelvectomy wound with wound vac placement Condition at Discharge: Stable Discharge Diagnoses: Pelvic mass [R19.00] Chondrosarcoma Acute blood loss anemia Depression Moderate malnutrition (ASPEN criteria of <75% of estimated energy requirements for more than 7 days, and mild to moderate fluid accumulation) Significant Diagnostic Studies and Procedures: Noted in brief hospital course. Consults: Anesthesiology, Endocrinology, General Surgery, ID, Internal Medicine , Pain Management, Psychiatry, Rehabilitative Medicine, Urology and Vascular Surgery Patient Disposition: Inpatient Rehabilitation Patient instructions/medications: Activity as Tolerated It is [...] to return to your normal activity level. - Increase activity as tolerated while maintaining your restrictions until further instructions at your follow up appointment - Increase walking as able and avoid sitting/standing/laying in one position for long periods of time - Perform exercises as instructed by physical therapy 2-3 times a day Bathing Restrictions Keep your incision and wounds clean and dry. Sponge baths until cleared for Shower by Dr. Luther. Until your incision is healed DO NOT submerge/soak your incision site. Avoid swimming and hot tubs. Avoid baths that allow your incision to soak. Your doctor may give you more instructions at your follow-up appointment. Driving Restrictions No driving while taking pain medication. Restrictions for Left Leg Non-weight bearing: Keep leg completely off the ground at all times. Do not place any weight on your leg. Continue these restrictions until follow up appointment. Please wear compression shorts for swelling management as able. Report These Signs and Symptoms Contact your doctor if you have any of the following symptoms: *temperature higher than 100 degrees *uncontrolled pain *persistenet nausea and/or vomiting *calf pain or tenderness *unable to urinate *unable to have a bowel movement *continued or increased drainage Ongoing swelling of your surgical leg can occur for 3 to 6 months. Bruising is very common as well but should decrease within a few weeks. Call 911 if you experience difficulty breathing, chest pain, or severe calf pain or swelling. Questions About Your Stay For questions or concerns regarding your hospital stay: DURING BUSINESS HOURS (8:00 AM - 4:30 PM) Call the Orthopedic clinic at [phone] AFTER BUSINESS HOURS AND WEEKENDS Call [phone] and ask the deposition operator to page the on-call Orthopedic Resident. Discharging attending physician: TAMIKO LUTHER [[id number]] Diabetic Diet Recommend high protein diet for wound healing in addition to diabetic diet for blood sugar control. You should eat between 1600 and 2000 calories per day. This is equal to 60g ( grams) of carbohydrates per meal, and 30g of carbohydrates for a bedtime snack. While taking pain medications: - Drink plenty of fluids (not including alcohol) - Add extra fiber to your diet - Continue your stool softeners to help prevent constipation If you have questions about your diet after you go home, you can call a dietitian at [phone]. Tube Feeding Formula: Isosource 1.5 Schedule: Continuous rate of 75 milliliters per hour between 2200 and 0400. Flush/Rinse: Use water 30 milliliters at one time. Give six times a day. Home Care Instructions: *Please remember to flush/rinse tube with water or normal saline after feed. This will help prevent the tube from clogging. *Don't keep cans of formula open for more than 24 hours. *Stop feeding if you become nauseated or begin vomiting. Hold the next feeding for 1 hour. *Make sure you are sitting up during and after feeding. *Give bolus or syringe feeding over 20 minutes. Feedings given too fast can cause cramping and loose stools. While taking pain medications: - Drink plenty of fluids (not including alcohol) - Add extra fiber to your diet - Continue your stool softeners to help prevent constipation Wound Care Please apply A&D ointment to labial area daily. Do not apply on incision. Apply collagenase to left lower abdominal wound daily. Do not apply on incision. Keep surgical wounds clean and dry. Change dressings prn with xeroform, dry gauze and hypafix tap. Maintain wound vac with Wednesday, Wednesday, Wednesday wound vac changes. Tunneled Catheter Line Snf Care Instructions: The bandage over the catheter exit site must be kept clean and dry. Only a healthcare provider may change the dressing. Place a waterproof covering, such as plastic wrap, over the catheter when showering. Never submerge the catheter in a bathtub, hot tub, or swimming pool. Opioid (Narcotic) Safety Information OPIOID (NARCOTIC) PAIN MEDICATION SAFETY We care about your comfort, and believe you need opioid medications at this time to treat your pain. An opioid is a strong pain medication. It is only available by prescription for moderate to severe pain. Usually these medications are used for only a short time to treat pain, but sometimes will be prescribed for longer. Talk with your doctor or nurse about how long they expect you to need this medication. When used the right way, opioids are safe and effective medications to treat your pain, even when used for a long time. Yet, when used in the wrong way, opioids can be dangerous for you or others. Opioids do not work for everyone. Most patients do not get full relief of their pain from opioid medication; full relief of your pain may not be possible. For your safety, we ask you to follow these instructions: *Only take your opioid medication as prescribed. If your pain is not controlled with the prescribed dose, or the medication is not lasting long enough, call your doctor. *Do not break or crush your opioid medication unless your doctor or pharmacist says you can. With certain medications, this can be dangerous, and may cause . *Never share your medications with others, even if they appear to have a good reason. Never take someone else's pain medication-this is dangerous, and illegal (a crime). Overdoses and deaths have occurred. *Keep your opioid medications safe, as you would with alvarez, in a lock box or similar container. *Make sure your opioids are going to be secure, especially if you are around children or teens. *Talk with your doctor or pharmacist before you take other medications. *Avoid driving, operating machinery, or drinking alcohol while taking opioid pain medication. This may be unsafe. Pain medications can cause constipation. Constipation is bowel movements that are less often than normal. Stools often become very hard and difficult to pass. This may lead to stomach pain and bloating. It may also cause pain when trying to use the bathroom. Constipation may be treated with suppositories, laxatives or stool softeners. A diet high in fiber with plenty of fluids helps to maintain regular, soft bowel movements. Current Discharge Medication List START taking these medications Details acetaminophen (TYLENOL) 500 mg tablet Take 2 tablets by mouth every 8 hours. Max of 4,000 mg of acetaminophen in 24 hours. Qty: 200 tablet, Refills: 0 PRESCRIPTION TYPE: No Print alum/mag hydroxide/simeth (MYLANTA, MAALOX PLUS) 200/200/20 mg/5 mL susp oral suspension Take 30 mL by mouth every 6 hours as needed. PRESCRIPTION TYPE: No Print buPROPion (WELLBUTRIN) 100 mg tablet Take 1 tablet by mouth three times daily. Qty: 90 tablet, Refills: 0 PRESCRIPTION TYPE: Print collagenase (SANTYL) 250 unit/g topical ointment Apply to left lower abdominal wound. Do not apply over incision. Refills: 0 PRESCRIPTION TYPE: No Print diazePAM (VALIUM) 5 mg tablet Take 0.5-1 tablets by mouth every 8 hours as needed. PRESCRIPTION TYPE: No Print ertapenem (INVANZ) 1 g/10 mL IVP Administer 10 mL through vein every 24 hours for 9 days. Qty: 1 each PRESCRIPTION TYPE: No Print HYDROmorphone injection (DILAUDID) 2 mg/mL syrg Administer 0.5-1 mg through vein three times weekly Earliest Fill Date: 01/14/18 Only as needed for wound vac changes. Attempt to wean. PRESCRIPTION TYPE: No Print insulin aspart U-100 (NOVOLOG FLEXPEN) 100 unit/mL injection PEN Inject 8 Units under the skin three times daily after meals. Qty: 45 mL, Refills: 3 PRESCRIPTION TYPE: No Print insulin glargine (LANTUS SOLOSTAR, BASAGLAR) 100 unit/mL (3 mL) injection PEN Inject 22 Units under the skin at bedtime daily. Qty: 45 mL, Refills: 3 PRESCRIPTION TYPE: No Print insulin NPH (HUMULIN N KWIKPEN) 100 unit/mL (3 mL) injection PEN Inject 30 Units under the skin daily. Qty: 45 mL, Refills: 3 PRESCRIPTION TYPE: No Print insulin pen needles (disposable) (BD UF LYNETTE PEN NEEDLES) 32 gauge x 5/32" pen needle Use 1 each as directed before meals and at bedtime. Use with insulin injections. Qty: 300 each, Refills: 3 PRESCRIPTION TYPE: Normal lactobacillus rhamnosus GG (CULTURELLE) 15 billion cell cpSP capsule Take 1 capsule by mouth as directed twice daily with meals. Qty: 90 capsule, Refills: 3 PRESCRIPTION TYPE: Print lidocaine 2% (20 mg/mL) soln 50 mL by SEE ADMIN INSTRUCTIONS route three times weekly. To be used for wound vac changes PRN. Use 50 ml to infiltrate wound vac sponge prior to wound vac changes for pain control. Qty: 5 mL PRESCRIPTION TYPE: No Print micafungin (MYCAMINE) 100 mg/5 mL 100 mg in sodium chloride 0.9% (NS) 0.9 % 100 mL IVPB (MB+) Administer 100 mg through vein every 24 hours for 2 days. PRESCRIPTION TYPE: No Print nortriptyline (PAMELOR) 25 mg capsule Take 1 capsule by mouth at bedtime daily. PRESCRIPTION TYPE: No Print oxyCODONE SR (OXYCONTIN) 20 mg tablet Take 1 tablet by mouth twice daily Earliest Fill Date: 01/14/18 Refills: 0 PRESCRIPTION TYPE: No Print pancrelipase 20,000 Units/ sodium bicarbonate 650 mg(#) (KU CLOG DESTROYER) 20, 000 Unit/ 650 mg cap Take 1 capsule via feeding tube PRN (Sharepoint Application 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 Rx) ( Occluded Feeding Tube). PRESCRIPTION TYPE: No Print pantoprazole DR (PROTONIX) 40 mg tablet Take 1 tablet by mouth daily. Qty: 90 tablet, Refills: 3 PRESCRIPTION TYPE: No Print simethicone (MYLICON) 80 mg chew tablet Chew 1 tablet by mouth every 6 hours as needed for Flatulence. Qty: 30 tablet, Refills: 0 PRESCRIPTION TYPE: No Print vitamin A & D oint Apply topically to affected area twice daily. Apply thin layer of ointment to labial wound. PRESCRIPTION TYPE: No Print CONTINUE these medications which have been CHANGED or REFILLED Details gabapentin (NEURONTIN) 300 mg capsule Take 3 capsules by mouth three times daily. Qty: 270 capsule, Refills: 3 PRESCRIPTION TYPE: No Print oxycodone(+) (ROXICODONE, OXY-IR) 10 mg tablet Take 1-2 tablets by mouth every 4 hours as needed Earliest Fill Date: 01/14/18 Qty: 75 tablet, Refills: 0 PRESCRIPTION TYPE: No Print rivaroxaban (XARELTO) 20 mg tablet Take 1 tablet by mouth daily with breakfast. Qty: 90 tablet, Refills: 0 PRESCRIPTION TYPE: Normal CONTINUE these medications which have NOT CHANGED Details aspirin EC 81 mg tablet Take 81 mg by mouth daily. Take with food. PRESCRIPTION TYPE: Historical Med busPIRone (BUSPAR) 30 mg tablet Take 30 mg by mouth twice daily. PRESCRIPTION TYPE: Historical Med levothyroxine (SYNTHROID) 175 mcg tablet Take 175 mcg by mouth daily. PRESCRIPTION TYPE: Historical Med lisinopril (PRINIVIL; ZESTRIL) 10 mg tablet Take 10 mg by mouth daily. PRESCRIPTION TYPE: Historical Med lovastatin(+) (MEVACOR) 40 mg tablet Take 40 mg by mouth at bedtime daily. PRESCRIPTION TYPE: Historical Med potassium chloride SR (K-DUR) 10 mEq tablet Take 10 mEq by mouth daily. Take with a meal and a full glass of water. PRESCRIPTION TYPE: Historical Med senna/docusate (SENOKOT-S) 8.6/50 mg tablet Take 1 tablet by mouth twice daily. Qty: 60 tablet, Refills: 0 PRESCRIPTION TYPE: Normal The following medications were removed from your list. This list includes medications discontinued this stay and those removed from your prior med list in our system buPROPion SR(+) (WELLBUTRIN-SR) 150 mg tablet empagliflozin (JARDIANCE) 25 mg tab metFORMIN (GLUCOPHAGE) 1,000 mg tablet Pending items needing follow up: Beata Kaiser was instructed to follow up as indicated above. Adrienne Zarate MD Pager [phone] 01/16/2018 cc: Primary Care Physician: Verified Referring physicians: Additional provider(s): in this encounter Medications at Time of [...] 03/02/2018 Units/ sodium bicarbonate feeding tube PRN (Sharepoint Application Developer 650 mg(#) (KU CLOG from Rx) (Occluded [...] as of this encounter Progress Notes * Amanda Juares - 01/14/2018 3:50 PM CDT Beata Kaiser discharged on 01/14/2018. . Discharge instructions reviewed with patient and family. Valuables returned: Personal Items / Valuables: (glasses, phone, ipad, purse) Where Are Valuables Stored?: all belongings left in room. Home medications: . Functional assessment at discharge complete: Yes Report called and given to rehab aide. * Adrienne Zarate MD - 01/14/2018 2:44 PM CDT Formatting of this note may be different from the original. Subjective: No acute events overnight. Pain controlled. Tolerating diet and feeds. Working well with PT/OT. Objective: Blood pressure 125/78, pulse 108, temperature 36.4 C (97.6 F), height 162.6 cm (64"), weight 102.3 kg (225 lb 8.5 oz), SpO2 98 %. General: AAOx3, NAD Cardiac: tachycardic Respirations: Unlabored Abdomen: soft, nd, induration about the distal pannus around wounds with scabbing and underlying granulation tissue Extremities: Dressings c/d/i, wound vac not holding consistent suction WV: 1425 ml/24 hrs No results for input(s): PTT, INR in the last 72 hours. CBC w/Diff Lab Results Component Value Date/Time WBC 10.9 01/14/2018 04:40 AM HGB 7.8 (L) 01/14/2018 04:40 AM HCT 23.1 (L) 01/14/2018 04:40 AM PLTCT 641 (H) 01/14/2018 04:40 AM Basic Metabolic Profile Lab Results Component Value Date/Time NA 137 01/14/2018 04:40 AM K 4.3 01/14/2018 04:40 AM CL 101 01/14/2018 04:40 AM CO2 28 01/14/2018 04:40 AM GAP 8 01/14/2018 04:40 AM Lab Results Component Value Date/Time BUN 12 01/14/2018 04:40 AM CR 0.61 01/14/2018 04:40 AM GLU 237 (H) 01/14/2018 04:40 AM A/P: 52 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 -Xarelto for DVT -Acute blood loss anemia - Hgb 10.9, will continue to monitor -Rehab consult- appreciate recs- recommend [facility] at [place] -Psych, HUMAN RESOURCES RECEPTIONIST psych and psychology consults for coping, depression - appreciate assistance -Endocrine consult for blood sugar management - appreciate recs -ID consult - Ertapenem, micafungin -Nutrition following for optimization -General Surgery consult - colostomy 12/30 Dispo: Plan for DC today to [facility] Adrienne Zarate MD [id number] * Sofía Centeno - 01/14/2018 2:03 PM CDT I have reviewed the students documentation and agree with it. Tita Centeno MSN/MHA RN CCRN [facility] - [facility] * Chari Moon - 01/14/2018 2:00 PM CDT PHYSICAL THERAPY PROGRESS NOTE MOBILITY: Mobility Progressive Mobility Level: Active transfer to chair Level of Assistance: Assist X2 (3rd person stabilizing board) Assistive Device: Transfer / slide board Time Tolerated: 31-60 minutes Activity Limited By: Fatigue;Pain SUBJECTIVE: Subjective Significant hospital events: 52 y/o F with history of left osteosarcoma s/p left hemipelvectomy, cystorrhaphy and bladder neck repair, cystoscopy, and left iliac exposure 12/14/17 Mental / Cognitive Status: Alert;Cooperative Persons Present: Father;Mother (Supervising FABRIC PATTERN GRADER, FABRIC PATTERN GRADER student) Pain: Patient complains of pain Pain Location: Left;Hip Pain Interventions: Patient agrees to participate in therapy L LE Precautions: LLE Non-Weight Bearing Comments: 52 y/o F with history of left osteosarcoma s/p left hemipelvectomy, cystorrhaphy and bladder neck repair, cystoscopy, and left iliac exposure Ambulation Assist: Independent Mobility in Community without Device Patient Owned Equipment: Crutches Home Situation: Lives with Family Type of Home: House Entry Stairs: 1-2 Stairs In-Home Stairs: No Stairs BED MOBILITY/TRANSFERS: Bed Mobility/Transfers Bed Mobility: Rolling: Minimal Assist;Head [...] to better reach handrims on the wheels. ACTIVITY/EXERCISE: Activity / Exercise Sit Edge Of Bed: 19 minutes (in wheelchair) ASSESSMENT/PROGRESS: Assessment/Progress Impaired Mobility Due To: Pain;Post Surgical Precautions;Post Surgical Changes; Decreased Activity Tolerance Impaired Strength Due To: Post Surgical Changes;Decreased Activity Tolerance; Deconditioning Assessment/Progress: Should Improve w/ Continued PT AM-PAC 6 Clicks Basic Mobility Inpatient Turning from your back to your side while in a flat bed without using bed rails : A Little Moving from lying on your back to sitting on the side of a flatbed without using bedrails : A Little Moving to and from a bed to a chair (including a wheelchair): A Lot Standing up from a chair using your arms (e.g. wheelchair, or bedside chair): A Lot To walk in hospital room: Total Climbing 3-5 steps with a railing: Total Raw Score: 12 Standardized (T-scale) Score: 32.23 Basic Mobility CMS 0-100%: 61.94 CMS G Code Modifier for Basic Mobility: CL GOALS: Goals Goal Formulation: With Patient/Family Time For Goal Achievement: 7 days Pt Will Go Supine To/From Sit: w/ Moderate Assist Pt Will Transfer Bed/Chair: w/ Moderate Assist Pt Will Transfer Sit to Stand: w/ Moderate Assist PLAN: Plan Treatment Interventions: Mobility Training;Coordination Training Plan Frequency: 5-7 Days per Week PT Plan for Next Visit: Increase sitting tolerance and progress wheelchair mobility distance RECOMMENDATIONS: PT Discharge Recommendations PT Discharge Recommendations: Inpatient Setting Equipment Recommendations: Wheelchair Recommend ongoing assistance for: Transfers;Bed mobility;Ambulation;Stairs;In and out of house PT Plan for Next Visit: PT Plan for Next Visit: Increase sitting tolerance and progress wheelchair mobility distance Therapist: Chari Moon Date: 01/14/2018 Associated attestation - Cassandra Villatoro - 01/14/2018 4:16 PM CDT I was present and involved in directing the care of the patient throughout the physical therapy session. * Mayi EmmaKAYA - 01/14/2018 12:47 PM CDT CLINICAL NUTRITION Clinical Nutrition Follow-Up Summary Nutrition Assessment of Patient: Malnutrition Assessment: Adequately nourished prior to admission Current Oral Intake: Adequate Estimated Calorie Needs: 1660 (30 kcals/kg per DBW 55.3 kg due to large surgical wound) Estimated Protein Needs: 100-120 (1.5-2.2 g/kg desired wt.) Oral Diet Order: Diabetic 4039-8107 Kcal/day (60 g Carb/meal, 30 g Carb/HS snack ) Oral Supplement: [place] Breakfast Essentials No Sugar Added Current EN Order: Nutren 1.5 @ 75ml/hr x's 6 hrs from 2022-0854, 3 ProSource/ day (At goal will provide: 855kcal (52% est needs), 76 g protein (63-76% est needs), and 345ml free water/day). She is also getting 30ml water flush Q 4 hrs. 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 Pt's weight initially went down 28# or 12% s/p removal of leg. Latest weight increased to only 2.5 kg below admit wt., likely due to fluid. Pt had been having issues with stool soilage prohibiting wound healing so team proceeded with colostomy placement 12/30. TPN started 10/22 concern for optimal nutriton s/p surgery. She received ~ 3 bags total. At this time, pt has order for nocturnal Nutren 1.5 with diabetic diet during day. Pt had reported feeling distended and CT from 01/06 showed increased gas and mildly dilated SB loops likely reflecting ileus. She currently denies any GI concerns. Ostomy OP 200 ml. 01/10 she had wound I and D with Wound VAC placement. TF reduced # hrs to [address] recs on 01/12 and pt has since had improved morning appetite. She reports she is eating 100% meals. Plan for dc today to rehab. Recommendation: Continue 4714-2085 Consistent Carb Diet. Continue Nutren 1.5 @ 75ml/hr x's 6 hrs. Please be sure to give 3 ProSource with evening tube feeds. Ostomy OP has been less over past 3 days. Please monitor GI status as pt had ileus noted on 01/06. Intervention / Plan: Pt has been educated on high protein needs. Reviewed EN intake and tolerance, as well as po intake and tolerance. Nutrition Diagnosis: Increased nutrient needs, specify: (protein) Etiology: demand for healing Signs & Symptoms: hemiplevectomy/wound drainage. Goals: Patient to consume >75% of meals/supplements Time Frame: Prior to Discharge Status: Met Transition from enteral to oral Time Frame: Throughout Stay Status: Ongoing Prevent further skin breakdown Time Frame: Throughout Stay Status: Ongoing Emma See, RD #[id number]. * Sofía Centeno - 01/14/2018 11:54 AM CDT I have reviewed the students documentation and agree with it. Tita Centeno MSN/MHA RN CCRN [facility] - [facility] * Nani Lynch DO - 01/14/2018 11:30 AM CDT Formatting of this note may be different from the original. Infectious Diseases Progress Note Today's Date: 01/14/2018 Admission Date: 12/13/2017 Assessment: # GBS bacteremia w sepsis- source suspected left hip wound, less likely pna - Fever and leukocytosis began 12/20/17 - 4/3 L lower lobe infiltrate - read as atelectasis - 12/20 C. diff negative - 12/23 Bcx 09/21 set group B streptococcus; source seems most likely intra-pelvic - CT pelvis 12/25: "Ill-defined fluid and [...] negative nitrite, 1+ luukocytes, Culture > 100,000 Aracely sp - Sensitivities not done, unsure if fluconazole susceptible; repeat urine culture negative 12/28 but improved with micafungin so is suspicion for fluconazole resistance - Treating given indwelling melchor and inability to remove melchor d/t recent bladder repair - ? Candidal intertrigo - groin/mons - Cath change in OR 01/10 - no bladder leak at that time # s/p hemipelvectomy for Chondrosarcoma - 11/25/17 [...] per pt - stopped HRT just before surg; getting intermittent steroid, no s/s alternate new [...] Cont ertapenem 1 gram daily - plan 10 more days IV antibiotic assuming no new wound concerns; stop 01/23 2. Continue micafungin - ~another 3 days given cath change in OR on 01/10; stop 3. Monitor for abx toxicity with cbc, cmp 4. Will follow; please place consult from rehab on Wednesday am and we can follow after patient is transferred Nani Lynch DO Division of Infectious Diseases Pager [phone] Interval History Afebrile, vitals stable. Feeling "ok" No f/c/s Pain stable No n/v Reviewed labs, stable. Vac with 1625 cc output. DC to rehab today. Antimicrobial Start date End date Erythromycin 12/13 Neomycin 12/13 12/13 Polymyxin B 12/14 12/14 erta 01/10 active Gentamycin 12/14 12/15 Clindamycin 12/14 12/22 Pip/tazo 12/22 01/10 Fluconazole 12/22 12/30 Vancomycin 12/23 12/27 Micafungin 12/30 active Estimated Creatinine Clearance: 109.4 mL/min (based on SCr of 0.61 mg/dL). Medications Scheduled Meds: acetaminophen (TYLENOL) tablet 1,000 mg 1,000 mg Oral Q8H* buPROPion (WELLBUTRIN) tablet 100 mg 100 mg Oral TID busPIRone (BUSPAR) tablet 30 mg 30 mg Oral BID collagenase (SANTYL) topical ointment Topical QDAY ertapenem (INVANZ) IVP 1 g 1 g [...] injection PEN 30 Units 30 Units Subcutaneous QDAY() lactobacillus rhamnosus GG (CULTURELLE) [...] 20 mg 20 mg Oral QDAY w/breakfast vitamin A & D topical ointment Topical BID Continuous Infusions: PRN and Respiratory Meds:alum/mag hydroxide/simeth Q6H PRN, calcium carbonate Q4H PRN, diazePAM Q6H PRN, diphenhydrAMINE Q6H PRN OR [DISCONTINUED] diphenhydrAMINE Q6H PRN, ondansetron (ZOFRAN) IV Q6H PRN, oxyCODONE Q3H PRN, pancrelipase 20,000 Units/ sodium bicarbonate 650 mg(#) PRN (Sharepoint Application 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 Rx), simethicone Q6H PRN Physical Examination Vital Signs: Last Vital Signs: 24 Hour Range BP: 125/78 (01/14 1005) Temp: 36.4 C (97.6 F) (01/14 1005) Pulse: 108 (01/14 1005) Respirations: 16 PER MINUTE (01/14 1005) SpO2: 98 % (01/14 1005) O2 Delivery: None (Room Air) (01/14 1005) BP: (108-158)/(59-92) Temp: [36.4 C (97.5 F)-37.7 C (99.9 F)] Pulse: [102-112] Respirations: [16 PER MINUTE-17 PER MINUTE] SpO2: [93 %-98 %] O2 Delivery: None (Room Air) General appearance: alert, oriented, NAD HENT: no thrush Lungs: clear bl Heart: Regular rhythm, reg rate, with no murmur Abdomen: obese, normal bowel sounds Ext: s/p left hemipelvectomy; There are areas of necrosis anterior wounds w/ induration- along pannus stable and no surrounding erythema. WV posterior - per wound RN about the same today Skin: no generalized rashes; aracely/dependent edema in groin improved with stable eschar anterior wounds Lines: PICC RUE No erythema Lab Review Hematology Recent Labs 01/12/18 0612 01/13/18 0342 01/14/18 0440 WBC 9.7 9.9 10.9 HGB 7.9* 10.9* 7.8* HCT 23.4* 31.8* 23.1* PLTCT 747* 630* 641* Chemistry Recent Labs 01/12/18 0612 01/13/18 0342 01/14/18 0440 NA 138 135* 137 K 4.1 4.5 4.3 CL 102 100 101 CO2 29 27 28 BUN 19 14 12 CR 0.54 0.66 0.61 GFR >60 >60 >60 GLU 192* 216* 237* CA 8.1* 8.5 8.3* ALBUMIN -- -- 2.3* ALKPHOS -- -- 92 AST -- -- 20 ALT -- -- 19 TOTBILI -- -- 0.2* Microbiology, Radiology and other Diagnostics Review Microbiology data reviewed. Pertinent radiology reviewed Nani Lynch DO Pager [phone] ID * Nani Mcelroy RN - 01/14/2018 11:28 AM CDT Formatting of this note may be different from the original. Wound Ostomy Note NAME:Beata Kaiser :1965 AGE: 52 y.o. ADMISSION DATE: 12/13/2017 DAYS ADMITTED: LOS: 32 days Reason for Consult/Visit: wound VAC Assessment/Plan: Principal Problem: Pelvic mass Active Problems: Chondrosarcoma (HCC) Pelvic mass in female Metabolic acidosis Acute blood loss as cause of postoperative anemia Depression Anxiety DM (diabetes mellitus) (HCC) 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 Hemorrhagic shock (HCC) Chronic pain Wounds (NOT for Pressure Injuries) 01/10/18 1100 Hip Surgical Incision (Active) 01/10/18 1100 Hip Wound Orientation: Wound Type: Surgical Incision Wound Type:: Wound Description (Comments): XEROFORM, 4X4S, HYPAFIX, WOUND VAC Wound Image 01/12/2018 11:00 AM Agree With My Assessment? 01/10/2018 12:15 PM Wound Base Assessment Moist;Red;Gallardo;Yellow 01/14/2018 11:00 AM Surrounding Skin Assessment Excoriated;Garber;Edema 01/14/2018 11:00 AM Wound Drainage Amount Large 01/14/2018 11:00 AM Wound Drainage Description Serosanguineous 01/12/2018 11:00 AM Wound Dressing Status Changed 01/14/2018 11:00 AM Wound Dressing and / or Treatment VAC @ _-125__ mm/Hg;VAC sponge -1 black;VAC tx : Continuous, 01/14/2018 11:00 AM Wound Length (cm) (Wound Team Only) 6 cm 01/12/2018 11:00 AM Wound Width (cm) (Wound Team Only) 15 cm 01/12/2018 11:00 AM Wound Depth (cm) (Wound Team Only) 26 01/12/2018 11:00 AM Wound Volume (cm^3) (Wound Team Only) 2340 cm^3 01/12/2018 11:00 AM Tunneling in CM (Wound Team Only) 15 cm 01/12/2018 11:00 AM Tunnelling Location 3 O clock 01/12/2018 11:00 AM Number of days: 4 Procedure: Negative Wound Therapy Dressing Change Anesthesia Type: Not Applicable or None Provider(s) and Role: RN Negative Wound Pressure Device Type: KCI VAC Contact layer: no Wound dimension (length x width x depth, tunneling, undermining): done 01/12 Number of sponges in the wound prior to dressing change: 2 Number of sponges removed from the wound: 2 Type of sponge: Black foam Number of sponges placed in the wound: 1 ( cut spiral ) Nani Mcelroy RN Wound vac change at bedside prior to discharge to rehab. Pt Vac had lost suction this Am , large amount of serosang drainage observed. Kimberly wound pink and macerated, blisters in some areas. medial incision fragile, aquacel Ag placed for protection. Difficult to keep seal over ceci. Wound team will change wound vac in Rehab ( next change planned for 01/17 ) on . If wound vac leaks or breaks seal, recommend packing with dry Kerlix and wound team will replace on the next scheduled day. Wound team is also currently following left Abdominal wound/ pannus and left inner labia. All other surgical wounds questions will need to be directed to ORTHO. Ostomy education will also continue will in rehab, as pt becomes able to participate Will continue to follow. Nani Mcelroy RN, BSN Wound Ostomy Nursing Consult Service Office: [phone] Pager: [phone] After hours Wound/Ostomy team pager : [phone] * Lexus Shirley, OT - 01/14/2018 10:00 AM CDT Formatting of this note may be different from the original. OCCUPATIONAL THERAPY PROGRESS NOTE Patient Name: Beata Kaiser Room/Bed: [place] [address] Admitting Diagnosis: Pelvic mass [R19.00] Pelvic mass in female Past Medical History: Diagnosis Date Anxiety Back pain Depression DM (diabetes mellitus) (HCC) 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 Mobility Progressive Mobility Level: Sit on edge of bed Level of Assistance: Stand by assistance Assistive Device: None Time Tolerated: 11-30 minutes Activity Limited By: Fatigue Subjective Pertinent Dx per Physician: 52 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 Don't lie flat for extended periods of time. Compression shorts Pain / Complaints: Patient agrees to participate in therapy;Patient premedicated Pain Location: Left;Hip Comments: Pt having increased drainage this date. Wound team coming in after OT session to address wound vac. Patient reports strong phantom limb pain but agreeable to therapy. Objective Psychosocial Status: Willing and Cooperative to Participate Persons Present: Father;Mother;Nursing Staff Home Living Type of Home: House Home Layout: Performs ADL'S on One Level Bathroom Shower / Tub: Tub/Shower Unit Bathroom Toilet: Standard Bathroom Accessibility: Accessible via Walker Home Equipment: Cane Comment: Pt reports she has someone who is giving her a walk in tub and ramps. 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 Activity Tolerance Endurance: 11/22 Tolerates 25-30 Minutes Exercise w/Multiple Rests Cognition Overall Cognitive Status: WFL to Adequately Complete Self Care Tasks Safely Attention: Awake/Alert Education Topics: ADL Compensatory Techniques;UE Exercises Goal Formulation: With Patient Assessment Assessment: Decreased ADL Status;Decreased UE Strength;Decreased Endurance; Decreased Self-Care Trans;Decreased High-Level ADLs Prognosis: Good;w/Cont OT s/p Acute Discharge Goal Formulation: Patient AM-PAC 6 Clicks Daily Activity Inpatient Putting on and taking off regular lower body clothes?: A Lot Bathing (Including washing, rinsing, drying): A Lot Toileting, which includes using toilet, bedpan, or urinal: Total Putting on and taking off regular upper body clothing: A Little Taking care of personal grooming such as brushing teeth: A Little Eating meals?: A Little Daily Activity Raw Score: 14 Standardized (t-scale) score: 33.39 CMS 0-100% Score: 59.67 CMS G Code Modifier: CK Plan OT Frequency: 5x/week OT Plan for Next Visit: LE dressing in supine ADL Goals Patient Will Perform LE Dressing: w/ Moderate Assist Functional Transfer Goals Pt Will Perform All Functional Transfers: Minimum Assist Pt Will Transfer To Bedside Commode: w/ Moderate Assist Pt Will Transfer To Toilet: w/ Minimum Assist Arm Goals Pt Will Complete Theraband Exer: B UE, 2 Sets, 10 Reps, Level 2 Theraband OT Discharge Recommendations OT Discharge Recommendations: Inpatient Setting, To address deficits, maximize function and improve safety. Equipment Recommendations: [facility] [place] Additional Information: Recommend ongoing assistance for: Transfers, Bed mobility, Dressing, Bathing, Toileting Therapist: SACHA Nath/[place] [id number] Date: 01/14/2018 * Linus Pisano MD - 01/14/2018 9:49 AM CDT Formatting of this note may be different from the original. Endocrinology Hospital Follow Up Visit Today's Date: 01/14/2018 Admission Date: 12/13/2017 Assessment: 1. 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 Enteral Nutrition 4. Obesity Class III 5. Hyperlipidemia On lovastatin 6. Chondorsarcoma Pelvis s/p hemipelvectomy Recommendations: Patient with blood sugar control at target or near target so no changes today and getting discharged Continue with Lantus 22 units QHS Continue [...] 75ml/hr x 6hr at night starting 2200 Thank you for the consult Patient discussed with Dr. Pisano ATTESTATION I personally performed the banuelos portions of the E/M visit, discussed case with Dr. Sibley and concur with her documentation of history, physical exam, assessment , and treatment plan unless otherwise noted. Staff name: Linus Pisano MD Date: 01/14/2018 History of Present Illness Beata Kaiser is a 52 y.o. The patient doing PT this am . No concerns . Going to rehab . continues to be on nocturnal tube feeds Estimated Creatinine Clearance: 109.4 mL/min (based on SCr of 0.61 mg/dL). Allergies Allergies Allergen Reactions Cephalexin SEE COMMENTS Face gets red, feels really hot, has tolerated penicillin Review of Systems The patient denies headache, vision changes, shortness of air, chest pain, abdominal pain, nausea or vomiting. Medications Scheduled Meds: acetaminophen (TYLENOL) tablet 1,000 mg 1,000 mg Oral Q8H* buPROPion (WELLBUTRIN) tablet 100 mg 100 mg Oral TID busPIRone (BUSPAR) tablet 30 mg 30 mg Oral BID collagenase (SANTYL) topical ointment Topical QDAY ertapenem (INVANZ) IVP 1 g 1 g [...] 20 mg 20 mg Oral QDAY w/breakfast vitamin A & D topical ointment Topical BID Continuous Infusions: PRN and Respiratory Meds:alum/mag hydroxide/simeth Q6H PRN, calcium carbonate Q4H PRN, diazePAM Q6H PRN, diphenhydrAMINE Q6H PRN OR [DISCONTINUED] diphenhydrAMINE Q6H PRN, ondansetron (ZOFRAN) IV Q6H PRN, oxyCODONE Q3H PRN, pancrelipase 20,000 Units/ sodium bicarbonate 650 mg(#) PRN (Sharepoint Application 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 Rx), simethicone Q6H PRN Physical Examination Vital Signs: Last Vital Signs: 24 Hour Range BP: 111/59 (01/14 539) Temp: 37.7 C (99.9 F) (01/14 539) Pulse: 108 (04/27 0539) Respirations: 16 PER MINUTE (01/14 539) SpO2: 98 % (01/14 539) O2 Delivery: None (Room Air) (01/14 539) BP: (108-158)/(59-92) Temp: [36.4 C (97.5 F)-37.7 C (99.9 F)] Pulse: [102-112] Respirations: [16 PER MINUTE-17 PER MINUTE] SpO2: [93 %-98 %] O2 Delivery: None (Room Air) General appearance: alert, oriented, NAD, OG + Resp: breathing comfortably Abd; Colostomy + Ext: s/p left hemipelvectomy Neuro: Alert Recent Labs 01/12/18 2239 01/13/18 0233 01/13/18 0740 01/13/18 1209 01/13/18 1746 01/13/18 2107 01/14/18 0254 01/14/18 0716 GLUPOC 87 200* 111* 89 136* 125* 218* 144* Lab Review Point of Care Testing (Last 24 hours) Glucose: (!) 237 (01/14/18 0440) POC Glucose (Download): (!) 144 (01/14/18 0716) Recent Labs 01/12/18 0612 01/13/18 0342 01/14/18 0440 NA 138 135* 137 K 4.1 4.5 4.3 CL 102 100 101 CO2 29 27 28 GAP 7 8 8 BUN 19 14 12 CR 0.54 0.66 0.61 GLU 192* 216* 237* CA 8.1* 8.5 8.3* ALBUMIN -- -- 2.3* Recent Labs 01/12/18 0612 01/13/18 0342 01/14/18 0440 WBC 9.7 9.9 10.9 HGB 7.9* 10.9* 7.8* HCT 23.4* 31.8* 23.1* PLTCT 747* 630* 641* AST -- -- 20 ALT -- -- 19 ALKPHOS -- -- 92 Estimated Creatinine Clearance: 109.4 mL/min (based on SCr of 0.61 mg/dL). Vitals: 01/08/18 0715 01/08/18 1000 01/14/18 0732 Weight: 102.4 kg (225 lb 12 oz) 104.1 kg (229 lb 8 oz) 102.3 kg (225 lb 8.5 oz) Thyroid Studies Lab Results Component Value Date/Time TSH 16.790 (H) 01/09/2018 01:40 PM No results found for: FREET3, [id number], THYBINDGLB Kalie Siblye, Endocrine fellow Pager [phone] * Nani Lynch, - 01/13/2018 11:34 AM CDT Formatting of this note may be different from the original. Infectious Diseases Progress Note Today's Date: 01/13/2018 Admission Date: 12/13/2017 Assessment: # GBS bacteremia w sepsis- source suspected left hip wound, less likely pna - Fever and leukocytosis began 12/20/17 - 4/3 L lower lobe infiltrate - read as atelectasis - 12/20 C. diff negative - 12/23 Bcx 09/21 set group B streptococcus; source seems most likely intra-pelvic - CT pelvis 12/25: "Ill-defined fluid and [...] negative nitrite, 1+ luukocytes, Culture > 100,000 Aracely sp - Sensitivities not done, unsure if fluconazole susceptible; repeat urine culture negative 12/28 but improved with micafungin so is suspicion for fluconazole resistance - Treating given indwelling melchor and inability to remove melchor d/t recent bladder repair - ? Candidal intertrigo - groin/mons - Cath change in OR 01/10 - no bladder leak at that time # s/p hemipelvectomy for Chondrosarcoma - 11/25/17 [...] per pt - stopped HRT just before surg; getting intermittent steroid, no s/s alternate new [...] Cont ertapenem 1 gram daily - plan 11 more days IV antibiotic assuming no new wound concerns; stop 01/23 2. Continue micafungin - ~another 4 days given cath change in OR on 01/10; stop 3. Monitor for abx toxicity with cbc, cmp 4. Will follow; please place consult from rehab when patient is transferred Staffed with attending, Dr. Lynch. I have seen, personally evaluated, and discussed the patient's care with Dr. Pedro, Infectious Diseases Fellow. I agree with the subjective notations, objective findings and agree with the plan of care as documented in this note with the exceptions noted. Nani Lynch, Division of Infectious Diseases Pager [phone] Interval History Afebrile, vitals stable. ROS - feeling fairly well today, in better spirits. Parents visiting. Pain is well controlled, with only mild symptoms anteriorly, no pain posteriorly with the wound vac. No nausea, vomiting, new skin rashes, or headache. ?sweats from stopping HRT prior to surgery admit; she feels like it is worse just after sitting then settles out ? Positional change in BP. Reviewed labs, stable. Vac with 1500 cc output. Noted potential plan for DC to rehab Sunday 01/14. We will follow there. Antimicrobial Start date End date Erythromycin 12/13 Neomycin 12/13 12/13 Polymyxin B 12/14 12/14 erta 01/10 active Gentamycin 12/14 12/15 Clindamycin 12/14 12/22 Pip/tazo 12/22 01/10 Fluconazole 12/22 12/30 Vancomycin 12/23 12/27 Micafungin 12/30 active Estimated Creatinine Clearance: 110.6 mL/min (based on SCr of 0.66 mg/dL). Medications Scheduled Meds: acetaminophen (TYLENOL) tablet 1,000 mg 1,000 mg Oral Q8H* buPROPion (WELLBUTRIN) tablet 100 mg 100 mg Oral TID busPIRone (BUSPAR) tablet 30 mg 30 mg Oral BID collagenase (SANTYL) topical ointment Topical QDAY ertapenem (INVANZ) IVP 1 g 1 g [...] injection PEN 30 Units 30 Units Subcutaneous QDAY() lactobacillus rhamnosus GG (CULTURELLE) [...] mL IVPB (MB+) 100 mg Intravenous Q24H* neomycin tablet 500 mg 500 mg Oral Q6H* nortriptyline (PAMELOR) capsule 25 mg 25 mg Oral QHS oxyCODONE SR (OXYCONTIN) tablet 20 mg 20 mg Oral BID [address]oprazole DR (PROTONIX) tablet 40 mg 40 mg Oral QDAY(21) rivaroxaban (XARELTO) tablet 20 mg 20 mg Oral QDAY w/breakfast vitamin A & D topical ointment Topical BID Continuous Infusions: PRN and Respiratory Meds:alum/mag hydroxide/simeth Q6H PRN, calcium carbonate Q4H PRN, diazePAM Q6H PRN, diphenhydrAMINE Q6H PRN OR [DISCONTINUED] diphenhydrAMINE Q6H PRN, ondansetron (ZOFRAN) IV Q6H PRN, oxyCODONE Q3H PRN, pancrelipase 20,000 Units/ sodium bicarbonate 650 mg(#) PRN (Sharepoint Application 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 Rx), simethicone Q6H PRN Physical Examination Vital Signs: Last Vital Signs: 24 Hour Range BP: 115/66 (01/14 940) Temp: 36.8 C (98.2 F) (01/14 940) Pulse: 107 (01/14 940) Respirations: 17 PER MINUTE (01/14 940) SpO2: 97 % (01/14 940) O2 Delivery: None (Room Air) (01/14 940) BP: (104-137)/(66-87) Temp: [36.7 C (98 F)-36.9 C (98.4 F)] Pulse: [94-118] Respirations: [16 PER MINUTE-17 PER MINUTE] SpO2: [94 %-97 %] O2 Delivery: None (Room Air) General appearance: alert, oriented, NAD HENT: no thrush Lungs: clear bl, non-labored Heart: Regular rhythm, reg rate, with no murmur Abdomen: obese, normal bowel sounds, soft Ext: s/p left hemipelvectomy; There are areas of necrosis anterior wounds w/ induration- along pannus continue to improve - moist with small amount of serous fluid present but non-tender, non-erythematous. WV posterior with clear thin serosang output in tubing Skin: no generalized rashes; aracely/dependent edema in groin improved with stable eschar anterior wounds Lines: PICC RUE No erythema Lab Review Hematology Recent Labs 01/11/18 0340 01/12/18 0612 01/13/18 0342 WBC 10.3 9.7 9.9 HGB 7.8* 7.9* 10.9* HCT 22.5* 23.4* 31.8* PLTCT 660* 747* 630* Chemistry Recent Labs 01/11/18 0340 01/12/18 0612 01/13/18 0342 NA 136* 138 135* K 4.0 4.1 4.5 CL 101 102 100 CO2 29 29 27 BUN 18 19 14 CR 0.61 0.54 0.66 GFR >60 >60 >60 GLU 269* 192* 216* CA 8.2* 8.1* 8.5 Microbiology, Radiology and other Diagnostics Review Microbiology data reviewed. Pertinent radiology reviewed Chari Pedro DO Pager [phone] ID fellow * Adrienne Zarate MD - 01/13/2018 11:10 AM CDT Formatting of this note may be different from the original. Subjective: No acute events overnight. Pain moderately well controlled. Tolerating diet and feeds. Appetite continuing to improved. Went out of the room in wheelchair yesterday. Overall doing quite well. Objective: Blood pressure 115/66, pulse 107, temperature 36.8 C (98.2 F), height 162.6 cm (64"), weight 104.1 kg (229 lb 8 oz), SpO2 97 %. General: AAOx3, NAD Cardiac: tachycardic Respirations: Unlabored Abdomen: soft, nd, induration about the distal pannus around wounds with scabbing and underlying granulation tissue Extremities: Dressings c/d/i, wound vac holding suction WV: 1500 ml/24 hrs No results for input(s): PTT, INR in the last 72 hours. CBC w/Diff Lab Results Component Value Date/Time WBC 9.9 01/13/2018 03:42 AM HGB 10.9 (L) 01/13/2018 03:42 AM HCT 31.8 (L) 01/13/2018 03:42 AM PLTCT 630 (H) 01/13/2018 03:42 AM Basic Metabolic Profile Lab Results Component Value Date/Time NA 135 (L) 01/13/2018 03:42 AM K 4.5 01/13/2018 03:42 AM CL 100 01/13/2018 03:42 AM CO2 27 01/13/2018 03:42 AM GAP 8 01/13/2018 03:42 AM Lab Results Component Value Date/Time BUN 14 01/13/2018 03:42 AM CR 0.66 01/13/2018 03:42 AM GLU 216 (H) 01/13/2018 03:42 AM A/P: 52 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 -Xarelto for DVT -Acute blood loss anemia - Hgb 10.9, will continue to monitor -Rehab consult- appreciate recs- recommend [facility] at [place] -Psych, HUMAN RESOURCES RECEPTIONIST psych and psychology consults for coping, depression - appreciate assistance -Endocrine consult for blood sugar management - appreciate recs -ID consult - Ertapenem, micafungin -Nutrition following for optimization -General Surgery consult - colostomy 12/30 Dispo: Plan for DC Wednesday to Rehab Adrienne Zarate MD [id number] * Lexus Shirley, OT - 01/13/2018 10:59 AM CDT Formatting of this note may be different from the original. OCCUPATIONAL THERAPY PROGRESS NOTE Patient Name: Beata Kaiser Room/Bed: [place] [address] Admitting Diagnosis: Pelvic mass [R19.00] Pelvic mass in female Past Medical History: Diagnosis Date Anxiety Back pain Depression DM (diabetes mellitus) (HCC) 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 Mobility Progressive Mobility Level: Sit on edge of bed Level of Assistance: Assist X1 Time Tolerated: 31-60 minutes Activity Limited By: Pain;Fatigue Subjective Pertinent Dx per Physician: 52 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 Don't lie flat for extended periods of time. Compression shorts Pain / Complaints: Patient premedicated;Patient agrees to participate in therapy Pain Location: Left;Hip Pain Level Current: (Pt did not rate, but described as "pressure") Home Living Type of Home: House Home Layout: Performs ADL'S on One Level Bathroom Shower / Tub: Tub/Shower Unit Bathroom Toilet: Standard Bathroom Accessibility: Accessible via Walker Home Equipment: Cane Comment: Pt reports she has someone who is giving her a walk in tub and ramps. 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 Pt required assist for trunk this date, supine>sit. Pt sat edge of bed x21 minutes with stand by assist. Pt able to complete LE dressing using BUE with contact guard assist for steadying/sitting balance. Pt completed grooming using 1UE support for sitting balance. Pt used BUE to participate in functional activity, reaching for items on L (some requiring trunk rotation to L posterior), folding in midline using BUE, and placing items on R (requiring trunk rotation). No loss of balance noted, but pt did have brief moments of using 1UE support for sitting balance to rest. Pt returned to supine (pulling self up in bed using bedrails) at end of session. Activity Tolerance Endurance: 2/5 Tolerates 10-20 Minutes Exercise w/Multiple Rests Cognition Overall Cognitive Status: WFL to Adequately Complete Self Care Tasks Safely Attention: Awake/Alert Education Persons Educated: Patient Topics: Role of OT, Goals for Therapy;ADL Compensatory Techniques;Adaptive Devices for ADLs Home Exercise Program: ADL Adaptive Equipment and Demonstration Assessment Assessment: Decreased ADL Status;Decreased UE Strength;Decreased Endurance; Decreased Self-Care Trans;Decreased High-Level ADLs Prognosis: Good;w/Cont OT s/p Acute Discharge Goal Formulation: Patient AM-PAC 6 Clicks Daily Activity Inpatient Putting on and taking off regular lower body clothes?: A Lot Bathing (Including washing, rinsing, drying): A Lot Toileting, which includes using toilet, bedpan, or urinal: Total Putting on and taking off regular upper body clothing: A Little Taking care of personal grooming such as brushing teeth: A Little Eating meals?: A Little Daily Activity Raw Score: 14 Standardized (t-scale) score: 33.39 CMS 0-100% Score: 59.67 CMS G Code Modifier: CK Plan OT Frequency: 5x/week OT Plan for Next Visit: LE dressing in supine/EOB with AE (shorts in supine, sock EOB), EOB functional activity/progress dynamic sitting balance ADL Goals Patient Will Perform LE Dressing: w/ Moderate Assist Functional Transfer Goals Pt Will Perform All Functional Transfers: Minimum Assist Pt Will Transfer To Bedside Commode: w/ Moderate Assist Pt Will Transfer To Toilet: w/ Minimum Assist Arm Goals Pt Will Complete Theraband Exer: B UE, 2 Sets, 10 Reps, Level 2 Theraband OT Discharge Recommendations OT Discharge Recommendations: Inpatient Setting, To address deficits, maximize function and improve safety. Equipment Recommendations: BS Additional Information: Recommend ongoing assistance for: Transfers, Bed mobility, Dressing, Bathing, Toileting Therapist: SACHA Nath/[place] [id number] Date: 01/13/2018 * Arnaldo Delacruz MD - 01/13/2018 10:57 AM CDT Formatting of this note may be different from the original. Physical Medicine & Rehabilitation Progress Note Patient name: Beata Kaiser Patient age: 52 y.o. Today's Date: 01/13/2018 Admission Date: 12/13/2017 LOS: 31 days Assessment/Plan: Principal Problem: Pelvic mass Active Problems: Chondrosarcoma (HCC) Pelvic mass in female Metabolic acidosis Acute blood loss as cause of postoperative anemia Depression Anxiety DM (diabetes mellitus) (HCC) 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 Hemorrhagic shock (HCC) Chronic pain Beata Kaiseris a 52 y.o.female[facility] the following issues: S/p hemipelvectomy for left pelvic chondrosarcoma Impairments: amputation (lower extremity), pain and poor activity tolerance Activity Limitations: grooming, bathing, dressing - lower, toileting, bladder control, transfers, ambulation and stairs Participation Restrictions: unable to return home safely This is a follow up visit from initial consultation performed on 12/27/2017 Beata Kaiser is a 52 yo F who presented to [facility] on 12/13/17 for scheduled left hemipelvectomy for [...] urethral injury. These were repaired by urology. NGT placed for post-op nutrition and has since been removed. Pt developed increasing leukocytosis and fevers post-op and infectious disease consulted for further work-up. Pt started on anti-bx for possible hospital acquired pneumonia. Fluconazole started for candiduria as per urology. Psych consulted for depression. Ex lap w/ diverting colostomy performed on 12/30 for stool diversion for non-healing wounds. Endocrinology was consulted for DMII hyperglycemia on TPN. TPN discontinued on 01/02 with diet advancement. ID following with abx management for GBS bacteriemia w/ sepsis, aracely UTI; currently on Zosyn, Micafungin. Hyponatermia treated with fluid restriction. Urology performed cystogram w/ Melchor catheter exchange on 01/10; Orhto performed wound exploration, I&D, wound vac placement / persistent wound drainage on 01/10. She continues to demonstrate tolerance for rehab therapies, currently mod assist for transfers (slide board) with new coming . Recommendations: The patient continues to demonstrate improved function and activity tolerance with rehab therapies. Recommend acute inpatient rehab when medically stable. Arnaldo Delacruz MD Subjective Beata Kaiser is a 52 y.o. female. She was evaluated transferring (slide board) to new at mod assist X 1. She feels she continues to improve functionally. She denies N&V, CP, SOB. Her post operative pain is persistent, but improving. Current Level Of Function: PT Gait: Bed Mobility/Transfers Bed Mobility: Rolling: Moderate Assist, Assist with Trunk Bed Mobility: Supine to Sit: Minimal Assist, Bed Flat, Use of Rail, Assist with Trunk Bed Mobility: Sit to Supine: Minimal Assist, x2 People, Bed Flat, Use of Rail, Assist with R LE, Assist with Trunk Comments: Pt was able to push up onto elbow while staff assisted to support trunk while going from sit to supine. Pt required verbal cues for optimal placement of elbow to help push up into sitting from supine as well. Pt was able to lower herself into bed with Min. A of 2 with staff assisting with trunk and lifting R LE into bed. Transfer Type: Sliding Board Transfer: Assistance Level: From, Bed, To, Wheelchair, Moderate Assist Transfer: Assistive Device: Sliding Board Transfers: Type Of Assistance: Verbal Cues, Knees(s) Blocked, For Strength Deficit, For Slide Board Placement, For Balance Other Transfer Type: Sliding Board Other Transfer: Assistance Level: From, Wheelchair, To, Bed, Moderate Assist, of 1st person, Minimal Assist, of 2nd person Other Transfer: Assistive Device: Sliding Board Other Transfer: Type Of Assistance: Verbal Cues, Knees(s) Blocked, For Balance, For Strength Deficit, For Slide Board Placement End Of Activity Status: In Bed, Nursing Notified Comments: Pt was able to slide board transfer from bed to wheelchair with moderate assistance from only one person. Staff was blocking right knee and assisting pt to scoot towards left with drawsheet under hips. When transferring using slide board to bed from wheelchair, pt required min assist of 1 to assist in scooting towards left with draw sheet and the second person was moderate assist with R knee blocked and also helping to scoot to left with drawsheet. OT ADL's Where Assessed: Edge of Bed, Supine, Bed Eating Assist: Independent (nocturnal corpak feeds) Eating Deficits: No Assist Needed, Beverage Management Grooming Assist: Stand By Assist Grooming Deficits: Setup, Brushing Hair (using BUE) Bathing Assist: Minimal Assist (for sitting balance, upper body bathing only) Bathing Deficits: Chest, L Arm, R Arm, Abdomen, Steadying, Verbal Cueing, Increased Time to Complete UE Dressing Assist: Stand By Assist UE Dressing Deficits: Setup, Thread RUE, Thread LUE, Pull Around Back LE Dressing Assist: Moderate Assist LE Dressing Deficits: Don/Doff R Sock, Increased Time To Complete (Pt able to doff. Assist to start don, then pt able to finish) Toileting Assist: (melchor) Toileting Deficits: (ostomy and melchor) Functional Transfer Assist: Minimal Assist Functional Transfer Deficits: (supine>sit) Comment: Pt supine upon OT arrival. Pt able to complete supine>sit with HOB elevated, increased time to complete. Pt sat edge of bed x15 minutes with stand by assist, no loss of balance noted. Pt returned to supine at end of session with stand by assist. Pt able to pull self up in bed with reverse trendelenberg mode of bed. Pt supine at OT departure. ERP IMPLEMENTATION CONSULTANT COGNITIVE EVALUATION SUMMARY PRAGMATICS: BEHAVIOR: AUDITORY COMPREHENSION: ORIENTATION: AUDITORY ATTENTION/WORKING MEMORY: AUDITORY MEMORY/SUSTAINED ATTENTION: NEW LEARNING: SEQUENCING/ORGANIZATION: PROBLEM SOLVING: REASONING: MATH/MONEY SKILLS: VISUAL PERCEPTUAL: SWALLOW EVALUATION SUMMARY Review of Systems - A 10 point review of systems was negative accept where reported in the HPI Medications Scheduled Meds: acetaminophen (TYLENOL) tablet 1,000 mg 1,000 mg Oral Q8H* buPROPion (WELLBUTRIN) tablet 100 mg 100 mg Oral TID busPIRone (BUSPAR) tablet 15 mg 15 mg Oral BID ertapenem (INVANZ) IVP 1 [...] mL IVPB (MB+) 100 mg Intravenous Q24H* neomycin tablet 500 mg 500 mg Oral Q6H* oxyCODONE SR (OXYCONTIN) tablet 20 mg 20 mg Oral BID pantoprazole DR (PROTONIX) tablet 40 mg 40 mg Oral QDAY(21) rivaroxaban (XARELTO) tablet 20 mg 20 mg Oral QDAY w/breakfast vitamin A & D topical ointment Topical BID Continuous Infusions: PRN and Respiratory Meds:alum/mag hydroxide/simeth Q6H PRN, calcium carbonate Q4H PRN, diazePAM Q6H PRN, diphenhydrAMINE Q6H PRN OR [DISCONTINUED] diphenhydrAMINE Q6H PRN, ondansetron (ZOFRAN) IV Q6H PRN, oxyCODONE Q3H PRN, pancrelipase 20,000 Units/ sodium bicarbonate 650 mg(#) PRN (Sharepoint Application 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 Rx), simethicone Q6H PRN Objective Vital Signs: Last Filed Vital Signs: 24 Hour Range BP: 115/66 (01/14 940) Temp: 36.8 C (98.2 F) (01/14 940) Pulse: 107 (01/14 940) Respirations: 17 PER MINUTE (01/14 940) SpO2: 97 % (01/14 940) O2 Delivery: None (Room Air) (01/14 940) BP: (104-137)/(66-87) Temp: [36.7 C (98 F)-36.9 C (98.4 F)] Pulse: [94-118] Respirations: [16 PER MINUTE-17 PER MINUTE] SpO2: [94 %-97 %] O2 Delivery: None (Room Air) Intensity Pain Scale 0-10 (Pain 1): 4 (01/13/18 0630) Vitals: 01/07/18 0638 01/08/18 0715 01/08/18 1000 Weight: 103.4 kg (227 lb 15.3 oz) 102.4 kg (225 lb 12 oz) 104.1 kg (229 lb 8 oz ) Intake/Output Summary: (Last 24 hours) Intake/Output Summary (Last 24 hours) at 01/13/18 1057 Last data filed at 01/13/18 1034 Gross per 24 hour Intake 30 ml Output 3410 ml Net -3380 ml Stool Occurrence: 1 Oral Diet Order: Diabetic 7314-4053 Kcal/day (60 g Carb/meal, 30 g Carb/HS snack ) Last BM Date: 01/12/18 Bowel Accident: 1 Physical Exam VS: BP 115/66 (BP Source: Arm, Left) | Pulse 107 | Temp 36.8 C (98.2 F) | Ht 162.6 cm (64") | Wt 104.1 kg (229 lb 8 oz) | SpO2 97% | BMI 39.39 kg/m Gen: AOX3, NAD HEENT: EOMI, MMM Heart: Extremtities well perfused Lungs: Good inspiratory effort without recruitment of accessory muscles Abd: Soft, non-distended Ext: Lt hemipelvectomy * Linus Pisano MD - 01/13/2018 10:50 AM CDT Formatting of this note may be different from the original. Endocrinology Hospital Follow Up Visit Today's Date: 01/13/2018 Admission Date: 12/13/2017 Assessment: 1. 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 Enteral Nutrition 4. Obesity Class III 5. Hyperlipidemia On lovastatin 6. Chondorsarcoma Pelvis s/p hemipelvectomy Recommendations: Patient with tight control later during the day and post prandial in nature so we have made the following changes Continue with Lantus 22 units QHS Decrease NovoLog to 8 units postmeal as this afternoon tight after 10 units at breakfast Continue with MDCF x5 Continue NPH 30 [...] 75ml/hr x 6hr at night starting 2200 Thank you for the consult , we will continue to follow Patient discussed with Dr. Pisano ATTESTATION I personally performed the banuelos portions of the E/M visit, discussed case with Dr. Sibley and concur with her documentation of history, physical exam, assessment , and treatment plan unless otherwise noted. Staff name: Linus Pisano MD Date: 01/13/2018 History of Present Illness Beata Kaiser is a 52 y.o. The patient states her appetite is good. She denies nausea or vomiting. Continues to feel hot and sweaty but improved since yesterday . With hypoglycemia yesterday and tight control later . Estimated Creatinine Clearance: 110.6 mL/min (based on SCr of 0.66 mg/dL). Allergies Allergies Allergen Reactions Cephalexin SEE COMMENTS Face gets red, feels really hot, has tolerated penicillin Review of Systems The patient denies headache, vision changes, shortness of air, chest pain, abdominal pain, nausea or vomiting. Medications Scheduled Meds: acetaminophen (TYLENOL) tablet 1,000 mg 1,000 mg Oral Q8H* buPROPion (WELLBUTRIN) tablet 100 mg 100 mg Oral TID busPIRone (BUSPAR) tablet 15 mg 15 mg Oral BID ertapenem (INVANZ) IVP 1 [...] mL IVPB (MB+) 100 mg Intravenous Q24H* neomycin tablet 500 mg 500 mg Oral Q6H* oxyCODONE SR (OXYCONTIN) tablet 20 mg 20 [address] Oral BID [address]ole [address] (PROTONIX) tablet 40 mg 40 mg Oral QDAY(21) rivaroxaban (XARELTO) tablet 20 mg 20 mg Oral QDAY w/breakfast vitamin A & D topical ointment Topical BID Continuous Infusions: PRN and Respiratory Meds:alum/mag hydroxide/simeth Q6H PRN, calcium carbonate Q4H PRN, diazePAM Q6H PRN, diphenhydrAMINE Q6H PRN OR [DISCONTINUED] diphenhydrAMINE Q6H PRN, ondansetron (ZOFRAN) IV Q6H PRN, oxyCODONE Q3H PRN, pancrelipase 20,000 Units/ sodium bicarbonate 650 mg(#) PRN (Sharepoint Application 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 Rx), simethicone Q6H PRN Physical Examination Vital Signs: Last Vital Signs: 24 Hour Range BP: 115/66 (01/14 940) Temp: 36.8 C (98.2 F) (01/14 940) Pulse: 107 (01/14 940) Respirations: 17 PER MINUTE (01/14 940) SpO2: 97 % (01/14 940) O2 Delivery: None (Room Air) (01/14 940) BP: (104-137)/(66-87) Temp: [36.7 C (98 F)-36.9 C (98.4 F)] Pulse: [94-118] Respirations: [16 PER MINUTE-17 PER MINUTE] SpO2: [94 %-97 %] O2 Delivery: None (Room Air) General appearance: alert, oriented, NAD, OG + Resp: breathing comfortably Abd; Colostomy + Ext: s/p left hemipelvectomy Neuro: Alert Recent Labs 01/11/18 2039 01/12/18 0217 01/12/18 0742 01/12/18 1224 01/12/18 1755 01/12/18 2239 01/13/18 0233 01/13/18 0740 GLUPOC 196* 184* 141* 67* 107* 87 200* 111* Lab Review Point of Care Testing (Last 24 hours) Glucose: (!) 216 (01/13/18 0342) POC Glucose (Download): (!) 111 (01/13/18 0740) Recent Labs 01/11/18 0340 01/12/18 0612 01/13/18 0342 NA 136* 138 135* K 4.0 4.1 4.5 CL 101 102 100 CO2 29 29 27 GAP 6 7 8 BUN 18 19 14 CR 0.61 0.54 0.66 GLU 269* 192* 216* CA 8.2* 8.1* 8.5 Recent Labs 01/11/18 0340 01/12/18 0612 01/13/18 0342 WBC 10.3 9.7 9.9 HGB 7.8* 7.9* 10.9* HCT 22.5* 23.4* 31.8* PLTCT 660* 747* 630* Estimated Creatinine Clearance: 110.6 mL/min (based on SCr of 0.66 mg/dL). Vitals: 01/07/18 0638 01/08/18 0715 01/08/18 1000 Weight: 103.4 kg (227 lb 15.3 oz) 102.4 kg (225 lb 12 oz) 104.1 kg (229 lb 8 oz ) Thyroid Studies Lab Results Component Value Date/Time TSH 16.790 (H) 01/09/2018 01:40 PM No results found for: FREET3, [id number], THYBINDGLB Kalie Sibley, Endocrine fellow Pager [phone] * Lynn Barrera - 01/12/2018 3:40 PM CDT PHYSICAL THERAPY MOBILITY NOTE Patient was assigned for activity with the mobility aide by the supervising therapist. Talked through assigned bed-level BLE exercises. Patient visibly fatigued from recent session with Physical Therapy. Patient reported that she would complete exercises later and would ask for assistance if needed. Aide: Lynn Barrera Date: 01/12/2018 * Linus Pisano MD - 01/12/2018 3:27 PM CDT Formatting of this note may be different from the original. Endocrinology Hospital Follow Up Visit Today's Date: 01/12/2018 Admission Date: 12/13/2017 Assessment: 1. 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 Enteral Nutrition 4. Obesity Class III 5. Hyperlipidemia On lovastatin 6. Chondorsarcoma Pelvis s/p hemipelvectomy Recommendations: Patient with hypoglycemia this afternoon and her Tube feeds are being adjusted so we have made the following changes Continue with Lantus 22 units QHS Decrease NovoLog to 12 units postmeal. Continue with MDCF x5 Decrease NPH to 30 units as Tube feeds getting reduced to 6 hours only - please hold NPH if tube feed are held and give at the start of tube feed TSh this admit 26 and will recommend to continue with LT4 175mcg daily and the TSh elevation is likely nonthyroidal in nature as TSH durng admit was 2.1. She will need repeat TFTS in 6-8 weeks Her hot flashes/night sweats could be related to the fact that she had been on HRT and now stopped Current TF regimen : Nutren 1.5, goal rate 75ml/hr x 6hr at night starting 2200 Thank you for the consult , we will continue to follow Patient discussed with Dr. Pisano ATTESTATION I personally performed the banuelos portions of the E/M visit, discussed case with Dr. Sibley and concur with her documentation of history, physical exam, assessment , and treatment plan unless otherwise noted. Staff name: Linus Pisano MD Date: 01/12/2018 History of Present Illness Beata Kaiser is a 52 y.o. The patient states her appetite is good. She denies nausea or vomiting. Continues to feel hot and sweaty . With hypoglycemia this afternoon . Tfs getting decreased starting this evening . She states she was on HRT since 2012 but stopped before her surgery Estimated Creatinine Clearance: 110.6 mL/min (based on SCr of 0.54 mg/dL). Allergies Allergies Allergen Reactions Cephalexin SEE COMMENTS Face gets red, feels really hot, has tolerated penicillin Review of Systems The patient denies headache, vision changes, shortness of air, chest pain, abdominal pain, nausea or vomiting. Medications Scheduled Meds: acetaminophen (TYLENOL) tablet 1,000 mg 1,000 mg Oral Q8H* buPROPion (WELLBUTRIN) tablet 100 mg 100 mg Oral TID busPIRone (BUSPAR) tablet 15 mg 15 mg Oral BID ertapenem (INVANZ) IVP 1 [...] 12 Units Subcutaneous TID after meals insulin glargine (LANTUS SOLOSTAR, BASAGLAR) injection PEN 22 Units 22 Units Subcutaneous QHS insulin NPH (HUMULIN N KwikPen) injection PEN 66 Units 66 Units Subcutaneous QDAY(17) lactobacillus rhamnosus GG (CULTURELLE) 15 billion cell [...] mL IVPB (MB+) 100 mg Intravenous Q24H* neomycin tablet 500 mg 500 mg Oral Q6H* oxyCODONE SR (OXYCONTIN) tablet 20 mg 20 mg Oral BID [address]ole DR (PROTONIX) tablet 40 mg 40 mg Oral QDAY(21) rivaroxaban (XARELTO) tablet 20 mg 20 mg Oral QDAY w/breakfast vitamin A & D topical ointment Topical BID WATER FOR INJECTION, STERILE IJ SOLN (Cabinet Override) NOW Continuous Infusions: PRN and Respiratory Meds:alum/mag hydroxide/simeth Q6H PRN, calcium carbonate Q4H PRN, diazePAM Q6H PRN, diphenhydrAMINE Q6H PRN OR [DISCONTINUED] diphenhydrAMINE Q6H PRN, ondansetron (ZOFRAN) IV Q6H PRN, oxyCODONE Q3H PRN, pancrelipase 20,000 Units/ sodium bicarbonate 650 mg(#) PRN (Sharepoint Application 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 Rx), simethicone Q6H PRN Physical Examination Vital Signs: Last Vital Signs: 24 Hour Range BP: 129/72 (01/12 1405) Temp: 36.7 C (98 F) (01/12 1405) Pulse: 116 (01/12 1405) Respirations: 16 PER MINUTE (01/12 1405) SpO2: 96 % (01/12 1405) O2 Delivery: None (Room Air) (01/12 140) BP: (118-132)/(68-79) Temp: [36.2 C (97.2 F)-37.5 C (99.5 F)] Pulse: [59-116] Respirations: [16 PER MINUTE-18 PER MINUTE] SpO2: [95 %-100 %] O2 Delivery: None (Room Air) General appearance: alert, oriented, NAD, OG + Resp: breathing comfortably Abd; Colostomy + Ext: s/p left hemipelvectomy Neuro: Alert Recent Labs 01/11/18 0333 01/11/18 0717 01/11/18 1127 01/11/18 1708 01/11/18 2039 01/12/18 0217 01/12/18 0742 01/12/18 1224 GLUPOC 199* 218* 160* 128* 196* 184* 141* 67* Lab Review Point of Care Testing (Last 24 hours) Glucose: (!) 192 (01/12/18 0612) POC Glucose (Download): (!) 67 (01/12/18 1224) Recent Labs 01/10/18 0330 01/11/18 0340 01/12/18 0612 NA 135* 136* 138 K 4.1 4.0 4.1 CL 99 101 102 CO2 29 29 29 GAP 7 6 7 BUN 16 18 19 CR 0.60 0.61 0.54 GLU 137* 269* 192* CA 8.2* 8.2* 8.1* Recent Labs 01/10/18 0330 01/11/18 0340 01/12/18 0612 WBC 9.2 10.3 9.7 HGB 8.3* 7.8* 7.9* HCT 24.2* 22.5* 23.4* PLTCT 711* 660* 747* Estimated Creatinine Clearance: 110.6 mL/min (based on SCr of 0.54 mg/dL). Vitals: 01/07/18 0638 01/08/18 0715 01/08/18 1000 Weight: 103.4 kg (227 lb 15.3 oz) 102.4 kg (225 lb 12 oz) 104.1 kg (229 lb 8 oz ) Thyroid Studies Lab Results Component Value Date/Time TSH 16.790 (H) 01/09/2018 01:40 PM No results found for: FREET3, [id number], THYBINDGLB Kalie Sibley, Endocrine fellow Pager [phone] * SaraiChari - 01/12/2018 2:08 PM CDT PHYSICAL THERAPY PROGRESS NOTE MOBILITY: Mobility Progressive Mobility Level: Active transfer to chair Level of Assistance: Assist X1 Assistive Device: Transfer / slide board Time Tolerated: 31-60 minutes Activity Limited By: Pain;Fatigue SUBJECTIVE: Subjective Significant hospital events: 52 y/o F with history of left osteosarcoma s/p left hemipelvectomy, cystorrhaphy and bladder neck repair, cystoscopy, and left iliac exposure 12/14/17 Mental / Cognitive Status: Alert;Cooperative;Oriented 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 Don't lie flat for extended periods of time. Compression shorts Ambulation Assist: Independent Mobility in Community without Device Patient Owned Equipment: Crutches Home Situation: Lives with Family Type of Home: House Entry Stairs: 1-2 Stairs In-Home Stairs: No Stairs BED MOBILITY/TRANSFERS: Bed Mobility/Transfers Bed Mobility: Supine to Sit: Minimal Assist;Bed Flat;Use of Rail;Assist with Trunk Bed Mobility: Sit to Supine: Minimal Assist;x2 People;Bed Flat;Use of Rail; Assist with R LE;Assist with Trunk Comments: Pt was able to push up onto elbow while staff assisted to support trunk while going from sit to supine. Pt required verbal cues for optimal placement of elbow to help push up into sitting from supine as well. Pt was able to lower herself into bed with Min. A of 2 with staff assisting with trunk and lifting R LE into bed. Transfer Type: Sliding Board Transfer: Assistance Level: From;Bed;To;Wheelchair;Moderate Assist Transfer: Assistive Device: Sliding Board Transfers: Type Of Assistance: Verbal Cues;Knees(s) Blocked;For Strength Deficit ;For Slide Board Placement;For Balance Other Transfer Type: Sliding Board Other Transfer: Assistance Level: From;Wheelchair;To;Bed;Moderate Assist;of 1st person;Minimal Assist;of 2nd person Other Transfer: Assistive Device: Sliding Board Other Transfer: Type Of Assistance: Verbal Cues;Knees(s) Blocked;For Balance; For Strength Deficit;For Slide Board Placement End Of Activity Status: In Bed;Nursing Notified Comments: Pt was able to slide board transfer from bed to wheelchair with moderate assistance from only one person. Staff was blocking right knee and assisting pt to scoot towards left with drawsheet under hips. When transferring using slide board to bed from wheelchair, pt required min assist of 1 to assist in scooting towards left with draw sheet and the second person was moderate assist with R knee blocked and also helping to scoot to left with drawsheet. ACTIVITY/EXERCISE: Activity / Exercise Sit Edge Of Bed: 16 minutes (up in wheelchair) ASSESSMENT/PROGRESS: Assessment/Progress Impaired Mobility Due To: Pain;Post Surgical Precautions;Post Surgical Changes; Decreased Activity Tolerance Impaired Strength Due To: Post Surgical Changes;Decreased Activity Tolerance; Deconditioning Assessment/Progress: Should Improve w/ Continued PT Comments: Pt was able to tolerate sitting up in the wheelchair for 16 minutes, but was limited by pain in left hip. AM-PAC 6 Clicks Basic Mobility Inpatient Turning from your back to your side while in a flat bed without using bed rails : A Little Moving from lying on your back to sitting on the side of a flatbed without using bedrails : A Little Moving to and from a bed to a chair (including a wheelchair): A Lot Standing up from a chair using your arms (e.g. wheelchair, or bedside chair): A Lot To walk in hospital room: Total Climbing 3-5 steps with a railing: Total Raw Score: 12 Standardized (T-scale) Score: 32.23 Basic Mobility CMS 0-100%: 61.94 CMS G Code Modifier for Basic Mobility: CL GOALS: Goals Goal Formulation: With Patient/Family Time For Goal Achievement: 7 days Pt Will Go Supine To/From Sit: w/ Moderate Assist Pt Will Transfer Bed/Chair: w/ Moderate Assist Pt Will Transfer Sit to Stand: w/ Moderate Assist PLAN: Plan Treatment Interventions: Mobility Training;Coordination Training Plan Frequency: 5-7 Days per Week PT Plan for Next Visit: Progress standing tolerance, pt will be getting a new wheelchair tomorrow, practice slide board transfers to new wheelchair, increase sitting tolerance in wheelchair, RECOMMENDATIONS: PT Discharge Recommendations PT Discharge Recommendations: Inpatient Setting Equipment Recommendations: Wheelchair, Slide Board Recommend ongoing assistance for: Transfers;Bed mobility;Ambulation;Stairs;In and out of house PT Plan for Next Visit: PT Plan for Next Visit: Progress standing tolerance, pt will be getting a new wheelchair tomorrow, practice slide board transfers to new wheelchair, increase sitting tolerance in wheelchair Therapist: Chari Moon Date: 01/12/2018 Associated attestation - Cassandra Villatoro - 01/12/2018 3:39 PM CDT I was present and involved in directing the care of the patient throughout the physical therapy session. * Nani Lynch DO - 01/12/2018 1:28 PM CDT Formatting of this note may be different from the original. Infectious Diseases Progress Note Today's Date: 01/12/2018 Admission Date: 12/13/2017 Assessment: # GBS bacteremia w sepsis- source suspected left hip wound, less likely pna - Fever and leukocytosis began 12/20/17 - 4/3 L lower lobe infiltrate - read as atelectasis - 12/20 C. diff negative - 12/23 Bcx 09/21 set group B streptococcus; source seems most likely intra-pelvic - CT pelvis 12/25: "Ill-defined fluid and [...] negative nitrite, 1+ luukocytes, Culture > 100,000 Aracely sp - Sensitivities not done, unsure if fluconazole susceptible; repeat urine culture negative 12/28 but improved with micafungin so is suspicion for fluconazole resistance - Treating given indwelling melchor and inability to remove melchor d/t recent bladder repair - ? 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 Cont ertapenem 1 gram daily - plan 12 more days IV antibiotic assuming no new wound concerns 2. Continue micafungin - ~another 5 days given cath change in OR on 01/10 3. Monitor for abx toxicity with cbc, cmp 4. Will follow Staffed with attending, Dr. Lynch. I have seen, personally evaluated, and discussed the patient's care with Dr. Pedro, Infectious Diseases Fellow. I agree with the subjective notations, objective findings and agree with the plan of care as documented in this note with the exceptions noted. Nani Lynch DO Division of Infectious Diseases Pager [phone] Interval History Afebrile, vitals stable. Pt is tearful today, after discussion with pain management. She is scared about reducing her pain medications due to concern for uncontrolled pain. States she does not think she is addicted, but does not want to feel severe pain. Otherwise no headache, dizziness, nausea. Mild abdominal pain. No f/c, no new skin rashes. Appetite is improved. Talked more about sweats - she had last menstration in 2012 so out of a perimenopausal timeframe for new sweats Reviewed labs. Noted potential plan for DC to rehab Sunday 01/14, if she continues to tolerate vac changes. Antimicrobial Start date End date Erythromycin 12/13 Neomycin 12/13 12/13 Polymyxin B 12/14 12/14 erta 01/10 active Gentamycin 12/14 12/15 Clindamycin 12/14 12/22 Pip/tazo 12/22 01/10 Fluconazole 12/22 12/30 Vancomycin 12/23 12/27 Micafungin 12/30 active Estimated Creatinine Clearance: 110.6 mL/min (based on SCr of 0.54 mg/dL). Medications Scheduled Meds: acetaminophen (TYLENOL) tablet 1,000 mg 1,000 mg Oral Q8H* buPROPion (WELLBUTRIN) tablet 100 mg 100 mg Oral TID busPIRone (BUSPAR) tablet 15 mg 15 mg Oral BID ertapenem (INVANZ) IVP 1 [...] 12 Units Subcutaneous TID after meals insulin glargine (LANTUS SOLOSTAR, BASAGLAR) injection PEN 22 Units 22 Units Subcutaneous QHS insulin NPH (HUMULIN N KwikPen) injection PEN 66 Units 66 Units Subcutaneous QDAY(17) lactobacillus rhamnosus GG (CULTURELLE) 15 billion cell [...] mL IVPB (MB+) 100 mg Intravenous Q24H* neomycin tablet 500 mg 500 mg Oral Q6H* oxyCODONE SR (OXYCONTIN) tablet 20 mg 20 mg Oral BID pantoprazole DR (PROTONIX) tablet 40 mg 40 mg Oral QDAY(21) rivaroxaban (XARELTO) tablet 20 mg 20 mg Oral QDAY w/breakfast vitamin A & D topical ointment Topical BID Continuous Infusions: PRN and Respiratory Meds:alum/mag hydroxide/simeth Q6H PRN, calcium carbonate Q4H PRN, diazePAM Q6H PRN, diphenhydrAMINE Q6H PRN OR [DISCONTINUED] diphenhydrAMINE Q6H PRN, ondansetron (ZOFRAN) IV Q6H PRN, oxyCODONE Q3H PRN, pancrelipase 20,000 Units/ sodium bicarbonate 650 mg(#) PRN (Sharepoint Application 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 Rx), simethicone Q6H PRN Physical Examination Vital Signs: Last Vital Signs: 24 Hour Range BP: 132/79 (01/13 956) Temp: 36.2 C (97.2 F) (01/13 956) Pulse: 112 (01/13 956) Respirations: 16 PER MINUTE (01/13 956) SpO2: 95 % (01/13 956) O2 Delivery: None (Room Air) (01/13 956) BP: (118-132)/(68-79) Temp: [36.2 C (97.2 F)-37.5 C (99.5 F)] Pulse: [59-112] Respirations: [16 PER MINUTE-18 PER MINUTE] SpO2: [95 %-100 %] O2 Delivery: None (Room Air) General appearance: alert, oriented, tearful/anxious HENT: no oral lesions/thrush Lungs: clear bl, non-labored Heart: Regular rhythm, reg rate, with no murmur Abdomen: obese, normal bowel sounds, soft Ext: s/p left hemipelvectomy; There are areas of necrosis anterior wounds w/ induration- along pannus continue to improve. WV posterior with clear thin serosang output in tubing; reviewed w/wound team posterior wound today - wound is deep - along lateral side flat pale ; medial wound good granulation tissue w/ bleeding - no odor or concerns for infection Skin: no generalized rashes; aracely/dependent edema in groin improved with stable eschar anterior wounds Lines: PICC RUE No erythema Lab Review Hematology Recent Labs 01/10/18 0330 01/11/18 0340 01/12/18 0612 WBC 9.2 10.3 9.7 HGB 8.3* 7.8* 7.9* HCT 24.2* 22.5* 23.4* PLTCT 711* 660* 747* Chemistry Recent Labs 01/10/1832901/11/180 01/12/18 0612 NA 135* 136* 138 K 4.1 4.0 4.1 CL 99 101 102 CO2 29 29 29 BUN 16 18 19 CR 0.60 0.61 0.54 GFR >60 >60 >60 GLU 137* 269* 192* CA 8.2* 8.2* 8.1* Microbiology, Radiology and other Diagnostics Review Microbiology data reviewed. Pertinent radiology reviewed Chari Pedro DO Pager [phone] ID fellow * Jasper Betts RN - 01/12/2018 12:35 PM CDT Inpatient Pain Management Nurses - Clinical [facility] - Follow -Up Primary team is responsible for entering orders. Suggested Plan for the Day: - Patient willing to increase her Buspirone and did not understand that was being offered by Dr. Quintana when she was seen yesterday. Patient still setting alarms to wake during the night for short acting opioid. Because she says that she is still waking in pain if she does not. This is even after oxycodone SR was started. A strategy to improve this would be to increase oxycodone SR 30 mg twice daily and increase frequency of oxycodone 10-20 mg orally to every 4 hours as needed for pain. This change alone would not increase her daily oral morphine equivalent (OME) and would improve her sustained analgesia. - Consider nortriptyline 25 mg PO q HS - multimodal pain regimen to improve pain regimen and sleep hygiene. Anticipated D/C Planning: SNF vs IPR S: Patient's current pain intensity: 8 Clinically Aligned Pain Assessment Comfort: Tolerable with discomfort Change in pain: About the same Pain control: Partially effective Function: Pain keeps me from doing most of what I need to do Sleep: Awake with occasional pain O: Oral morphine equivalent (OME) used over past 24 hours (7:01 AM - 7:00 AM)- ~ 170 mg Current Analgesic Regimen, OME: Used oxycodone SR 20 mg Used 7 doses of oxycodone 20 mg ~ 140 mg Used 2 doses of fentanyl IV 50 dhj=363 mcg ~ 10 mg Please call with questions/concerns. Jasper Betts, MSN, RN- Clinical Nurse Coordinator Pain Management [phone] Team pager [phone] * Pancho De Souza, PhD - 01/12/2018 12:29 PM CDT Formatting of this note may be different from the original. Psychology Consult Service ([phone]) Beata Kaiser is a 52 year-old female with history of scheduled left hemipelvectomy for chondrosarcoma on 12/13/17. Psychiatry and psychology have been following for management of adjustment, depression and anxiety. Pt requested follow-up for additional management on this date. Impression: Adjustment Disorder With Mixed Anxiety and Depressed Mood (F43.23) H/O Major Depressive Disorder H/O Generalized Anxiety Disorder Plan/recommendations: 1) Ms. Kaiser demonstrates symptoms consistent with adjustment disorder and has a history of depression and anxiety. Today she expresses ongoing anxiety symptoms (e.g., feeling scared and worried) regarding the next steps involved in her care. She is also tearful when discussing stressors. She is insightful with regards to emotional status and relevant coping mechanisms. 2) Monitor for progression of increased mental health symptoms and issues. 3) Encourage education regarding treatment plan. 4) Encourage involvement of social support (e.g., family and friends) during hospital course. She recognizes this as helpful. 5) Will continue to follow to provide support of above. Clinical Findings: Ms. Kaiser was seen bedside for follow-up psychological services. She described her mood as overwhelmed and commented on having anxiety and feeling worried and scared. She was noted to provide her clinical history to this provider from a client-centered perspective. She was not interrupted and allowed to express herself. She discussed her work-up and progression towards diagnosis of chondrosarcoma with recommended treatment of hemipelvectomy. She discussed coming out of surgery and feeling not human due to pain and bodily presentation. She also discussed seeing a picture of herself and realizing this is the last photo of me with both my legs. She reported that she felt like she lost it at that moment. She was also noted to become tearful briefly during this portion of the session. Her affect quickly stabilized and she shared insights from her continued hospital course. She reported feeling anxiety several weeks ago in an incident where she felt like she was going to fall during a therapy (she did not fall but apparently felt like she was going to). She also reported feeling increased anxiety in anticipation to transfer to physiatry. She expressed concern of care that would be provided and her ability to "measure up" to grandiose goals of rehab and commented I dont even see myself doing that (referencing ADLs, etc) . She also shared insight into her resiliency and support system as well as her coping mechanisms. She expressed interest in receiving additional supportive services and interaction with team members to help her progress through her treatment. She asked for the session to close due to subjective somnolence that she attributed to recent medication. No psychosis or dangerousness present. No other issues noted. Past Psychiatric History: Ms. Kaiser reports prior psychiatric history of depression and anxiety. She states that treatment has been helpful for her. Medical history: Past Medical History: Diagnosis Date Anxiety Back [...] OR/Periop SECTION HERNIA REPAIR MANDIBLE SURGERY Family History Problem Relation Age of Onset [...] History Narrative No narrative on file Family Psychiatric History: Family psychiatric history is positive for anxiety and depression. Social History: Ms. Kaiser is a 52 year old female. She is from [place] and currently lives in [place]. 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 She is and has 3 children. She currently lives with her family in [place], [place]. MSE: 52 year-old female, supine in bed, alert and oriented x4, mood overwhelmed, worried, scared, fair range of affect; tearful at times, speech normal volume , rate and rhythm, TP linear and goal-directed, TC denies SI/HI/AH/VH I giovanny, J giovanny, actively engaged in session Assessment and Intervention: Psychological evaluation and therapy was provided. Counseling was provided to help promote coping and engagement in treatment. Session was client-centered with brief cognitive-behavioral elements. Cognitive and interpersonal interventions sought to intervene upon issues associated with self-concept and body image as well as to help reduce anxiety. These involved self-regulatory and communication strategies. Education also provided regarding molar aspects of anticipated care (e.g., transfer to rehab and available services). She was noted to be receptive to this. Patient largely appeared to need an opportunity to express herself and receive support which was provided. Primary team updated regarding presentation and services provided. Peer psychology team members also notified of above for continuity of care. Thank you for this consultation. Please page with any questions or concerns. Pancho De Souza, PhD [phone] Licensed Psychologist Department of Psychiatry and Behavioral Sciences Division of Psychology * Adrienne Zarate MD - 01/12/2018 11:34 AM CDT Formatting of this note may be different from the original. Subjective: No acute events overnight. States appetite is much improved and continues to tolerate feeds. Pain currently controlled. Tolerated wound vac change this morning. No new issues or concerns. Objective: Blood pressure 132/79, pulse 112, temperature 36.2 C (97.2 F), height 162.6 cm (64"), weight 104.1 kg (229 lb 8 oz), SpO2 95 %. General: AAOx3, NAD Cardiac: tachycardic Respirations: Unlabored Abdomen: soft, nd, induration about the distal pannus around wounds with scabbing and underlying granulation tissue Extremities: Dressings c/d/i, wound vac holding suction WV: 1275 ml/24 hrs No results for input(s): PTT, INR in the last 72 hours. 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 -Xarelto for DVT -Acute blood loss anemia - Hgb 7.9, will continue to monitor -Rehab consult- appreciate recs- recommend [facility] at DC -Psych, HUMAN RESOURCES RECEPTIONIST psych and psychology consults for coping, depression - appreciate assistance -Endocrine consult for blood sugar management - appreciate recs -ID consult - Zosyn, micafungin -Nutrition following for optimization -General Surgery consult - colostomy 12/30 Dispo: Plan for likely DC Wednesday to Rehab pending tolerating wound vac changes Adreinne Zarate MD [id number] * Lexus Shirley, OT - 01/12/2018 9:58 AM CDT Formatting of this note may be different from the original. OCCUPATIONAL THERAPY PROGRESS NOTE Patient Name: Beata Kaiser Room/Bed: MA5833/01 Admitting Diagnosis: Pelvic mass [R19.00] Pelvic mass in female Past Medical History: Diagnosis Date Anxiety Back pain Depression DM (diabetes mellitus) (HCC) 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 Mobility Progressive Mobility Level: Sit on edge of bed Level of Assistance: Assist X1 Assistive Device: None Time Tolerated: 11-30 minutes Activity Limited By: Pain;Fatigue Subjective Pertinent Dx per Physician: 52 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 Don't lie flat for extended periods of time. Compression shorts Pain / Complaints: Patient premedicated Pain Location: (sacrum) Pain Level Current: (Pt did not rate.) Objective Psychosocial Status: Willing and Cooperative to Participate Persons Present: Nursing Staff;Father;Mother Home Living Type of Home: House Home Layout: Performs ADL'S on One Level (2 steps to enter) Bathroom Shower / Tub: Tub/Shower Unit Bathroom Toilet: Standard Bathroom Accessibility: Accessible via Walker Home Equipment: Cane Comment: Pt reports she has someone who is giving her a walk in tub and ramps. 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 Assist to start don, then pt able to finish) Functional Transfer Assist: Minimal Assist Functional Transfer Deficits: (supine>sit) Comment: Pt supine upon OT arrival. Pt able to complete supine>sit with HOB elevated, increased time to complete. Pt sat edge of bed x15 minutes with stand by assist, no loss of balance noted. Pt returned to supine at end of session with stand by assist. Pt able to pull self up in bed with reverse trendelenberg mode of bed. Pt supine at OT departure. Activity Tolerance Endurance: 2/5 Tolerates 10-20 Minutes Exercise w/Multiple Rests Cognition Overall Cognitive Status: WFL to Adequately Complete Self Care Tasks Safely Attention: Awake/Alert Education Home Exercise Program: UE Home Exer Program Comments: Pt completed 2 sets x 10 reps of shoulder flexion/abduction, elbow flexion, elbow extension, bow and arrow. Assessment Assessment: Decreased ADL Status;Decreased UE Strength;Decreased Endurance; Decreased Self-Care Trans;Decreased High-Level ADLs Prognosis: Good;w/Cont OT s/p Acute Discharge Goal Formulation: Patient AM-PAC 6 Clicks Daily Activity Inpatient Putting on and taking off regular lower body clothes?: A Lot Bathing (Including washing, rinsing, drying): A Lot Toileting, which includes using toilet, bedpan, or urinal: Total Putting on and taking off regular upper body clothing: A Little Taking care of personal grooming such as brushing teeth: A Little Eating meals?: A Little Daily Activity Raw Score: 14 Standardized (t-scale) score: 33.39 CMS 0-100% Score: 59.67 CMS G Code Modifier: CK Plan OT Frequency: 5x/week OT Plan for Next Visit: slideboard transfer to wheelchair, progress theraband to Level II ADL Goals Patient Will Perform LE Dressing: w/ Moderate Assist Functional Transfer Goals Pt Will Perform All Functional Transfers: Minimum Assist Pt Will Transfer To Bedside Commode: w/ Moderate Assist Pt Will Transfer To Toilet: w/ Minimum Assist Arm Goals Pt Will Complete Theraband Exer: B UE, 2 Sets, 10 Reps, Level 2 Theraband OT Discharge Recommendations OT Discharge Recommendations: Inpatient Setting, To address deficits, maximize function and improve safety. Equipment Recommendations: [facility] [place] Additional Information: Recommend ongoing assistance for: Transfers, Dressing, Bathing, Toileting Therapist: Lexus Shirley, OTR/L [id number] Date: 01/12/2018 * Adrienne Zarate MD - 01/11/2018 10:17 PM CDT Formatting of this note may be different from the original. Subjective: No acute events overnight. Patient seen this morning. Tolerating diet and tube feeds after surgery. Increased pain this morning not adequately controlled. No other new concerns or complaints. Objective: Blood pressure 131/68, pulse 59, temperature 37.5 C (99.5 F), height 162.6 cm (64"), weight 104.1 kg (229 lb 8 oz), SpO2 100 %. General: AAOx3, NAD Cardiac: tachycardic Respirations: Unlabored Abdomen: soft, nd, induration about the distal pannus around wounds Extremities: Dressings c/d/i, wound vac holding suction WV: 1070 ml/24 hrs No results for input(s): PTT, INR in the last 72 hours. 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 -Xarelto for DVT -Acute blood loss anemia - Hgb 7.8, will continue to monitor -Rehab consult- appreciate recs- recommend [facility] at [place] -Psych, HUMAN RESOURCES RECEPTIONIST psych and psychology consults for coping, depression - appreciate assistance -Endocrine consult for blood sugar management - appreciate recs -ID consult - Zosyn, micafungin -Nutrition following for optimization -General Surgery consult - colostomy 12/30 Dispo: Plan for possible DC Wednesday to Rehab pending tolerating wound vac changes Adrienne Zarate MD [id number] * Hugh Quintana MD - 01/11/2018 9:31 PM CDT Formatting of this note may be different from the original. Psychiatric Consultation Progress Note LOS: 29 days Current Psychotropic Meds: Wellbutrin 100 mg 3 times a day, BuSpar 15 mg twice a day. Assessment: 1. Adjustment disorder with mixed anxiety and depression 2. Other depression 3. Other anxiety Recommendations: Continue Wellbutrin 100mg po TID, Buspar 15mg po BID for mood/anxiety Discussed potential changes in psychotropic medications, patient declines at this time May consider increasing BuSpar if anxiety escalates Patient requesting repeat visit from psychology for coping with pain Please feel free to contact us with any additional questions or concerns by paging the consult team between 8am and 5pm on weekdays and between 8am and 3pm on weekends at [phone]. Otherwise, page the global consumer sector vice president clinical practice consultant. Subjective: Beata Kaiser is seen for routine consult follow up. Patient is frustrated and struggling with significant amount postoperative pain has some anxiety related to her medical condition, feels that this overall manageable. Denies affective symptoms unrelated to current health concerns. Denies SI/HI/AVH. Stated she was surprised to see this provider and was expecting a visit from psychology. Validation and supportive therapy provided. Discussed possibility of adjusting psychotropic medications if symptoms become overwhelming, patient declines at this time. Constitutional: positive for fatigue Musculoskeletal:positive for operative site pain Behavioral/Psych: positive for anxiety and depression Objective: Vital Signs: Current Vital Signs: 24 Hour Range BP: 131/68 (01/12 2040) Temp: 37.5 C (99.5 F) (01/12 2040) Pulse: 59 (01/12 2040) Respirations: 18 PER MINUTE (01/12 2040) SpO2: 100 % (01/12 2040) O2 Delivery: None (Room Air) (01/12 2040) BP: (116-131)/(64-73) Temp: [36.4 C (97.6 F)-37.5 C (99.5 F)] Pulse: [59-101] Respirations: [17 PER MINUTE-18 PER MINUTE] SpO2: [95 %-100 %] O2 Delivery: None (Room Air) Intensity Pain Scale 0-10 (Pain 1): (not recorded) Scheduled Medications: acetaminophen (TYLENOL) tablet 1,000 mg 1,000 mg Oral Q8H* buPROPion (WELLBUTRIN) tablet 100 mg 100 mg Oral TID busPIRone (BUSPAR) tablet 15 mg 15 mg Oral BID ertapenem (INVANZ) IVP 1 g 1 g Intravenous Q24H* gabapentin (NEURONTIN) capsule 900 mg 900 mg Oral Q8H [START ON 01/12/2018] HYDROmorphone injection (DILAUDID) injection 1 mg 1 mg Intravenous Once per day on Wed insulin aspart U-100 (NOVOLOG FLEXPEN) injection PEN 0-14 Units 0-14 Units Subcutaneous 5 X Day insulin aspart U-100 (NOVOLOG FLEXPEN) injection PEN 14 Units 14 Units Subcutaneous TID after meals insulin glargine (LANTUS SOLOSTAR, BASAGLAR) injection PEN 22 Units 22 Units Subcutaneous QHS insulin NPH (HUMULIN N KwikPen) injection PEN 66 Units 66 Units Subcutaneous QDAY(17) lactobacillus rhamnosus GG (CULTURELLE) 15 billion cell capsule 1 capsule 1 capsule Oral BID w/meals levothyroxine (SYNTHROID) tablet 175 mcg 175 mcg Oral QDAY before breakfast lidocaine (LIDODERM) 5 % topical patch 2 patch 2 patch Topical QDAY [START ON 01/12/2018] lidocaine 2% (20 mg/mL) injection 50 mL 50 mL SEE ADMIN INSTRUCTIONS Once per day on Wed micafungin (MYCAMINE) 100 mg in sodium chloride 0.9% (NS) 100 mL IVPB (MB+) 100 mg Intravenous Q24H* neomycin tablet 500 mg 500 mg Oral Q6H* oxyCODONE SR (OXYCONTIN) tablet 20 mg 20 mg Oral BID pantoprazole DR (PROTONIX) tablet 40 mg 40 mg Oral QDAY(21) rivaroxaban (XARELTO) tablet 20 mg 20 mg Oral QDAY w/breakfast vitamin A & D topical ointment Topical BID PRN Medications: alum/mag hydroxide/simeth Q6H PRN 30 mL at 01/11/184, calcium carbonate Q4H PRN 1,000 mg at 12/25/17 1349, diazePAM Q6H PRN 2.5 mg at 01/11/18 0106, diphenhydrAMINE Q6H PRN 25 mg at 01/09/18 0316 OR [DISCONTINUED] diphenhydrAMINE Q6H PRN 25 mg at 12/19/17 2139, fentaNYL citrate PF Q1H PRN 50 mcg at 01/11/18 1132, naloxone PRN, ondansetron (ZOFRAN) IV Q6H PRN 4 mg at 2227, oxyCODONE Q3H PRN 20 mg at 01/11/18 1937, pancrelipase 20,000 Units / sodium bicarbonate 650 mg(#) PRN (Sharepoint Application 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 Rx), simethicone Q6H PRN 80 mg at 01/05/18 2046 Mental Status Exam: General/Constitutional: cooperative, interactive, dressed appropriately, and appropriate eye contact Speech: regular rate, rhythm and volume Thought Process. Logical, goal directed Thought Content: Denied SI, HI, AH, VH Perception: Does not appear to be reacting to internal stimuli Associations: Intact Insight/Judgement: Good/good Orientation: oriented X 4 Recent and remote memory: Grossly intact Attention span and concentration: Good Language: appropriate Fund of knowledge and vocabulary: average Mood: I am struggling Affect: Dysphoric Focused Physical Exam: Neurologic: No focal deficits Musculoskeletal: Normal strength and tone, moves all extremities spontaneously Hugh Quintana MD * Nani Lynch, - 01/11/2018 3:43 PM CDT Formatting of this note may be different from the original. Infectious Diseases Progress Note Today's Date: 01/11/2018 Admission Date: 12/13/2017 Assessment: # GBS bacteremia w sepsis- source suspected left hip wound, less likely pna - Fever and leukocytosis began 12/20/17 - 12/21 L lower lobe infiltrate - read as atelectasis - 12/20 C. diff negative - 12/23 Bcx 09/21 set group B streptococcus; source seems most likely intra-pelvic - CT pelvis 12/25: "Ill-defined fluid and air along the anterior margin of the surgical site away from the drain tip. However, no discrete drainable fluid collection is noted. - OR 01/10 for wound eval - no sign of infection - posterior wound starting to granulate, WV replaced # Candiduria - 12/21/17 UA: wbc 2-10, negative nitrite, 1+ luukocytes, Culture > 100,000 Aracely sp - Sensitivities not done, unsure if fluconazole susceptible; repeat urine culture negative 12/28 but improved with micafungin so is suspicion for fluconazole resistance - Treating given indwelling melchor and inability to remove melchor d/t recent bladder repair - ? Candidal intertrigo - groin/mons - Cath change in OR 01/10 - no bladder leak at that time # s/p hemipelvectomy for Chondrosarcoma - 11/25/17 [...] hypotension /lyte disturbance suggestive of adrenal disease, getting intermittent steroid, no s/s alternate new [...] 1. Cont ertapenem 1 gram daily - 13 more days IV antibiotic 2. Continue micafungin - ideally another 6 days given cath change in OR yesterday 3. Monitor for abx toxicity with cbc, cmp 4. Discussed with endocrine - no ideas as to source of sweats 5. Will follow Complexity of medical decision making is high b/c of the multi-system nature of the infectious disease process and concerns about the complexity of the patient illness including the sensitivity of the organisms being treated, the potential for drug toxicity and interactions, concerns about immunologic function, and interplay of other issues. Interval History Afebrile, stable vital signs Denies f/c, reports episodes of diaphoresis x 1 wk No cough, sob, CP, n/v. Pain R hip/incision associated No other new sx Antimicrobial Start date End date Erythromycin 12/13 Neomycin 12/13 12/13 Polymyxin B 12/14 12/14 erta 01/10 active Gentamycin 12/14 12/15 Clindamycin 12/14 12/22 Pip/tazo 12/22 01/10 Fluconazole 12/22 12/30 Vancomycin 12/23 12/27 Micafungin 12/30 active Estimated Creatinine Clearance: 110.6 mL/min (based on SCr of 0.61 mg/dL). Medications Scheduled Meds: acetaminophen (TYLENOL) tablet 1,000 mg 1,000 mg Oral Q8H* buPROPion (WELLBUTRIN) tablet 100 mg 100 mg Oral TID busPIRone (BUSPAR) tablet 15 mg 15 mg Oral BID ertapenem (INVANZ) IVP 1 g 1 g Intravenous Q24H* gabapentin (NEURONTIN) capsule 900 mg 900 mg Oral Q8H [START ON 01/12/2018] HYDROmorphone injection (DILAUDID) injection 1 mg 1 mg Intravenous Once per day on Wed insulin aspart U-100 (NOVOLOG FLEXPEN) injection PEN 0-14 Units 0-14 Units Subcutaneous 5 X Day insulin aspart U-100 (NOVOLOG FLEXPEN) injection PEN 14 Units 14 Units Subcutaneous TID after meals insulin glargine (LANTUS SOLOSTAR, BASAGLAR) injection PEN 22 Units 22 Units Subcutaneous QHS insulin NPH (HUMULIN N KwikPen) injection PEN 66 Units 66 Units Subcutaneous QDAY(17) lactobacillus rhamnosus GG (CULTURELLE) 15 billion cell capsule 1 capsule 1 capsule Oral BID w/meals levothyroxine (SYNTHROID) tablet 175 mcg 175 mcg Oral QDAY before breakfast lidocaine (LIDODERM) 5 % topical patch 2 patch 2 patch Topical QDAY [START ON 01/12/2018] lidocaine 2% (20 mg/mL) injection 50 mL 50 mL SEE ADMIN INSTRUCTIONS Once per day on Wed micafungin (MYCAMINE) 100 mg in sodium chloride 0.9% (NS) 100 mL IVPB (MB+) 100 mg Intravenous Q24H* neomycin tablet 500 mg 500 mg Oral Q6H* oxyCODONE SR (OXYCONTIN) tablet 20 mg 20 mg Oral BID pantoprazole DR (PROTONIX) tablet 40 mg 40 mg Oral QDAY(21) rivaroxaban (XARELTO) tablet 20 mg 20 mg Oral QDAY w/breakfast vitamin A & D topical ointment Topical BID Continuous Infusions: lactated ringers infusion 20 mL/hr at 01/10/18 0828 PRN and Respiratory Meds:alum/mag hydroxide/simeth Q6H PRN, calcium carbonate Q4H PRN, diazePAM Q6H PRN, diphenhydrAMINE Q6H PRN OR [DISCONTINUED] diphenhydrAMINE Q6H PRN, fentaNYL citrate PF Q1H PRN, naloxone PRN, ondansetron (ZOFRAN) IV Q6H PRN, oxyCODONE Q3H PRN, pancrelipase 20,000 Units/ sodium bicarbonate 650 mg(#) PRN (Sharepoint Application 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 Rx), simethicone Q6H PRN Physical Examination Vital Signs: Last Vital Signs: 24 Hour Range BP: 123/69 (01/11 1359) Temp: 36.4 C (97.6 F) (01/11 1359) Pulse: 98 (01/11 1359) Respirations: 18 PER MINUTE (01/11 1359) SpO2: 96 % (01/11 1359) O2 Delivery: None (Room Air) (01/11 1359) BP: (116-135)/(64-73) Temp: [36.4 C (97.6 F)-36.7 C (98.1 F)] Pulse: [97-108] Respirations: [16 PER MINUTE-18 PER MINUTE] SpO2: [96 %-99 %] O2 Delivery: None (Room Air) General appearance: alert, oriented, no distress HENT: no oral lesions/thrush Lungs: clear bl Heart: Regular rhythm, reg rate, with no murmur Abdomen: obese, normal bowel sounds, soft Ext: s/p left hemipelvectomy; There are areas of necrosis anterior wounds- along pannus continue to improve. WV posterior with clear thin serosang output in tubing Skin: no generalized rash; aracely in groin improved Lines: PICC No erythema Lab Review Hematology Recent Labs 01/09/1831601/10/18 0330 01/11/18 0340 WBC 9.0 9.2 10.3 HGB 8.4* 8.3* 7.8* HCT 24.2* 24.2* 22.5* PLTCT 626* 711* 660* Chemistry Recent Labs 01/09/187 01/10/18 0330 01/11/18 0340 NA 135* 135* 136* K 4.1 4.1 4.0 CL 99 99 101 CO2 29 29 29 BUN 16 16 18 CR 0.63 0.60 0.61 GFR >60 >60 >60 GLU 179* 137* 269* CA 8.1* 8.2* 8.2* Microbiology, Radiology and other Diagnostics Review Microbiology data reviewed. Pertinent radiology reviewed Nani Lynch DO Pgr [id number] * Rocío Pinto, PT - 01/11/2018 2:10 PM CDT PHYSICAL THERAPY NOTE Met with pt bedside at established time for PT session. Pt declining therapy at this time, citing pain and fatigue. No time to check back with pt later in the PM. Will resume therapy schedule tomorrow and progress pt's mobility, as appropriate. Therapist: Rocío Pinto, PT Date: 01/11/2018 * Emma See, RD - 01/11/2018 1:34 PM CDT CLINICAL NUTRITION Clinical Nutrition Follow-Up Summary Nutrition Assessment of Patient: Malnutrition Assessment: Adequately nourished prior to admission Current Oral Intake: Marginally Adequate Estimated Calorie Needs: 1660 (30 kcals/kg per DBW 55.3 kg due to large surgical wound) Estimated Protein Needs: 100-120 (1.5-2.2 g/kg desired wt.) Oral Diet Order: Diabetic 4786-2703 Kcal/day (60 g Carb/meal, 30 g Carb/HS snack ) Oral Supplement: [place] Breakfast Essentials No Sugar Added Intake (calories) Daily Average : 1332 kilocalories (80% yesterday) Intake (protein) Daily Average : 85 grams (70-85% needs yesterday.) Current EN Order: Nutren 1.5 @ 75ml/hr x's 12 hrs (0088-4611) + 2 Liquid ProSource/day (At goal provides: 900ml, 1470 kcal (88% est needs), 91 g protein (75-90% est needs), and 684ml free water/day in EN). 30 ml water flush Q 4 hrs to total 864ml water/day. 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 Pt's weight initially went down 28# or 12% s/p removal of leg. Latest weight increased to only .7kg below admit wt., likely due to fluid. Pt had been having issues with stool soilage prohibiting wound healing so team proceeded with colostomy placement 12/30. TPN started 10/22 concern for optimal nutriton s/p surgery. She received ~ 3 bags total. At this time, pt has order for nocturnal Nutren 1.5 with diabetic diet during day. Pt had reported feeling distended and CT from 01/06 showed increased gas and mildly dilated SB loops likely reflecting ileus. She currently denies any GI concerns. Ostomy OP 950ml. She reports she is eating most of breakfast and lunch but appettie less in evening 2/2 TF start. Pt continued to have persistent drainage so on 01/10 she had wound I and D with Wound VAC placement. Patient c/o menu fatigue and I also encouraged her to request meal voucher if she has family or friend in room who can go to cafeteria for her, keeping in mind need for protein and consistent carbs. Blood sugars elevated. Patient reports she was told she was given steroid during surgery. Recommendation: Continue 4450-2388 Consistent Carb Diet. Continue SF CIB with skim milk and 2 added protein powders (1/day).=230 kcal, 25 g protein. Change tube feeds to shorter time line with increased Liquid ProSource so pt has appetite for evening meals. REC: Nutren 1.5 @ 75ml/hr from 10pm to 4 pm and add 3 Liquid Prosources during that time. (Will provide: 855 kcal (52% est needs), 76 g protein (63-76% est needs), and 345ml free water/day). Intervention / Plan: Again reviewed protein needs and provided additional protein foods handout. Again offered dm diet education. Pt declined reporting she is familiar with diet. Discussed menu fatigue and meal voucher option. Nutrition Diagnosis: Increased nutrient needs, specify: (protein) Etiology: demand for healing Signs & Symptoms: hemiplevectomy/wound drainage. Inadequate oral intake Etiology: marginal appetite, firm and distended abdomen Signs & Symptoms: EMR, pt report Goals: Patient to consume >75% of meals/supplements Time Frame: Prior to Discharge Status: Partially met;Ongoing Transition from enteral to oral Time Frame: Throughout Stay Status: Ongoing Prevent further skin breakdown Time Frame: Throughout Stay Status: Ongoing Emma See, RD #[id number]. * Lexus Shirley, OT - 01/11/2018 11:52 AM CDT Formatting of this note may be different from the original. 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 Don't lie flat for extended periods of time. Compression shorts Pain / Complaints: Patient premedicated Pain Location: Left;Hip Pain Level Current: (Pt did not rate.) Objective Psychosocial Status: Willing and Cooperative to Participate Persons Present: Father;Mother;Nursing Staff;Provider Home Living Type of Home: House Home Layout: Performs ADL'S on One Level (2 steps to enter) Bathroom Shower / Tub: Tub/Shower Unit Bathroom Toilet: Standard Bathroom Accessibility: Accessible via Walker Home Equipment: Cane Comment: Pt reports she has someone who is giving her a walk in tub and ramps. 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 Pt able to complete supine>sit with head of bed slightly elevated, stand by assist, increased time to complete. Pt sat edge of bed x11 minutes with stand by assist, one brief moment of CGA. Pt used BUE to complete theraband exercises, maintaining sitting balance. Pt completed sit> supine with stand by assist, bed flat. Pt supine at OT departure. Activity Tolerance Endurance: 2/5 Tolerates 10-20 Minutes Exercise w/Multiple Rests Cognition Overall Cognitive Status: WFL to Adequately Complete Self Care Tasks Safely Attention: Awake/Alert Cognition Comment: Pt had brief momenets of laughter during session. Education Persons Educated: Patient Barriers To Learning: None Noted Teaching Methods: Verbal Instruction;Demonstration;Provided Printed Instructions Patient Response: Verbalized and Demo Understanding Topics: Role of OT, Goals for Therapy;UE Exercises Home Exercise Program: Theraband therex Goal Formulation: With Patient/Family Comments: Pt completed 1 set x 10 reps shoulder flexion/abduction, elbow flexion , elbow extension, bow and arrow. Assessment Assessment: Decreased ADL Status;Decreased UE Strength;Decreased Endurance; Decreased Self-Care Trans;Decreased High-Level ADLs Prognosis: Good;w/Cont OT s/p Acute Discharge Goal Formulation: Patient Patient able to tolerate sitting edge of bed with more comfort this date. Patient demonstrates better finding of center of balance with static and dynamic sitting balance. Patient educated on importance/progression of tolerating upright activity for longer periods to improve functional status. Patient verbalizes understanding. AM-PAC 6 Clicks Daily Activity Inpatient Putting on and taking off regular lower body clothes?: A Lot Bathing (Including washing, rinsing, drying): A Lot Toileting, which includes using toilet, bedpan, or urinal: Total Putting on and taking off regular upper body clothing: A Little Taking care of personal grooming such as brushing teeth: A Little Eating meals?: A Little Daily Activity Raw Score: 14 Standardized (t-scale) score: 33.39 CMS 0-100% Score: 59.67 CMS G Code Modifier: CK Plan OT Frequency: 5x/week OT Plan for Next Visit: slideboard transfer to wheelchair ADL Goals Patient Will Perform LE Dressing: w/ Moderate Assist Functional Transfer Goals Pt Will Perform All Functional Transfers: Minimum Assist Pt Will Transfer To Bedside Commode: w/ Moderate Assist Pt Will Transfer To Toilet: w/ Minimum Assist Arm Goals Pt Will Complete Theraband Exer: B UE, 2 Sets, 10 Reps, Level 1 Theraband, Met OT Discharge Recommendations OT Discharge Recommendations: Inpatient Setting, To address deficits, maximize function and improve safety. Equipment Recommendations: [facility] [place] Additional Information: Recommend ongoing assistance for: Transfers, Dressing, Bathing, Toileting Therapist: SACHA Nath/[place] [id number] Date: 01/11/2018 * Linus Pisano MD - 01/11/2018 11:51 AM CDT Formatting of this note may be different from the original. Endocrinology Hospital Follow Up Visit Today's Date: 01/11/2018 Admission Date: 12/13/2017 Assessment: 1. 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 Enteral Nutrition 4. Obesity Class III 5. Hyperlipidemia On lovastatin 6. Chondorsarcoma Pelvis s/p hemipelvectomy Recommendations: Glucose control inadequate in the last 24 hours due to the dose of Dexamethasone 4mg which she received yesterday intraoperatively so to account for the same we have made the following changes Increase Lantus to 22 units QHS Increase NovoLog to 14 units postmeal. Continue with MDCF x5 Continue with NPH 66 units to be given before the starting of the nocturnal Tube feed - please hold if tube feeds are held or planned to be held TSh this admit 26 and will recommend to continue with LT4 175mcg daily and the TSh elevation is likely nonthyroidal in nature as TSH durng admit was 2.1. She will need repeat TFTS in 6-8 weeks Current TF regimen : Nutren 1.5, goal rate 75ml/hr x 12hr at night Thank you for the consult , we will continue to follow Patient discussed with Dr. Pisano ATTESTATION I personally performed the banuelos portions of the E/M visit, discussed case with Dr. Sibley and concur with her documentation of history, physical exam, assessment , and treatment plan unless otherwise noted. Staff name: Linus Pisano MD Date: 01/11/2018 History of Present Illness Beata Kaiser is a 52 y.o. The patient states her appetite is good. She denies hypoglycemia. She denies nausea or vomiting. She is having some surgical pain. Continues to feel hot and sweaty . Received Dex yesterday Estimated Creatinine Clearance: 110.6 mL/min (based on SCr of 0.61 mg/dL). Allergies Allergies Allergen Reactions Cephalexin SEE COMMENTS Face gets red, feels really hot, has tolerated penicillin Review of Systems The patient denies headache, vision changes, shortness of air, chest pain, abdominal pain, nausea or vomiting. Medications Scheduled Meds: acetaminophen (TYLENOL) tablet 1,000 mg 1,000 mg Oral Q8H* buPROPion (WELLBUTRIN) tablet 100 mg 100 mg Oral TID busPIRone (BUSPAR) tablet 15 mg 15 mg Oral BID ertapenem (INVANZ) IVP 1 g 1 g Intravenous Q24H* gabapentin (NEURONTIN) capsule 900 mg 900 mg Oral Q8H [START ON 01/12/2018] HYDROmorphone injection (DILAUDID) injection 1 mg 1 mg Intravenous Once per day on Wed insulin aspart U-100 (NOVOLOG FLEXPEN) injection PEN 0-14 Units 0-14 Units Subcutaneous 5 X Day insulin aspart U-100 (NOVOLOG FLEXPEN) injection PEN 14 Units 14 Units Subcutaneous TID after meals insulin glargine (LANTUS SOLOSTAR, BASAGLAR) injection PEN 22 Units 22 Units Subcutaneous QHS insulin NPH (HUMULIN N KwikPen) injection PEN 66 Units 66 Units Subcutaneous QDAY(17) lactobacillus rhamnosus GG (CULTURELLE) 15 billion cell capsule 1 capsule 1 capsule Oral BID w/meals levothyroxine (SYNTHROID) tablet 175 mcg 175 mcg Oral QDAY before breakfast lidocaine (LIDODERM) 5 % topical patch 2 patch 2 patch Topical QDAY [START ON 01/12/2018] lidocaine 2% (20 mg/mL) injection 50 mL 50 mL SEE ADMIN INSTRUCTIONS Once per day on Wed micafungin (MYCAMINE) 100 mg in sodium chloride 0.9% (NS) 100 mL IVPB (MB+) 100 mg Intravenous Q24H* neomycin tablet 500 mg 500 mg Oral Q6H* oxyCODONE SR (OXYCONTIN) tablet 20 mg 20 [address] BID [address] DR (PROTONIX) tablet 40 mg 40 mg Oral QDAY(21) rivaroxaban (XARELTO) tablet 20 mg 20 mg Oral QDAY w/breakfast vitamin A & D topical ointment Topical BID Continuous Infusions: lactated ringers infusion 20 mL/hr at 01/10/18 0828 PRN and Respiratory Meds:alum/mag hydroxide/simeth Q6H PRN, calcium carbonate Q4H PRN, diazePAM Q6H PRN, diphenhydrAMINE Q6H PRN OR [DISCONTINUED] diphenhydrAMINE Q6H PRN, fentaNYL citrate PF Q1H PRN, naloxone PRN, ondansetron (ZOFRAN) IV Q6H PRN, oxyCODONE Q3H PRN, pancrelipase 20,000 Units/ sodium bicarbonate 650 mg(#) PRN (Sharepoint Application 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 Rx), simethicone Q6H PRN Physical Examination Vital Signs: Last Vital Signs: 24 Hour Range BP: 118/66 (01/11 955) Temp: 36.6 C (97.9 F) (01/11 955) Pulse: 97 (01/11 955) Respirations: 18 PER MINUTE (01/11 955) SpO2: 98 % (01/11 955) O2 Delivery: None (Room Air) (01/11 955) SpO2 Pulse: 91 (01/10 1215) BP: (96-135)/(64-80) Temp: [36.5 C (97.7 F)-36.7 C (98.1 F)] Pulse: [91-108] Respirations: [9 PER MINUTE-18 PER MINUTE] SpO2: [97 %-100 %] O2 Delivery: None (Room Air) General appearance: alert, oriented, NAD, OG + Resp: breathing comfortably Abd; Colostomy + Ext: s/p left hemipelvectomy Neuro: Alert Recent Labs 01/10/18 0843 01/10/18 1049 01/10/18 1353 01/10/18 1805 01/10/18 2045 01/11/18 0333 01/11/18 0717 01/11/18 1127 GLUPOC 100 87 140* 290* 297* 199* 218* 160* Lab Review Point of Care Testing (Last 24 hours) Glucose: (!) 269 (01/11/18 0340) POC Glucose (Download): (!) 160 (01/11/18 1127) Recent Labs 01/09/18 0317 01/09/18 1340 01/10/18 0330 01/11/18 0340 NA 135* -- 135* 136* K 4.1 -- 4.1 4.0 CL 99 -- 99 101 CO2 29 -- 29 29 GAP 7 -- 7 6 BUN 16 -- 16 18 CR 0.63 -- 0.60 0.61 GLU 179* -- 137* 269* CA 8.1* -- 8.2* 8.2* TSH -- 16.790* -- -- Recent Labs 01/09/18 0317 01/10/18 0330 01/11/18 0340 WBC 9.0 9.2 10.3 HGB 8.4* 8.3* 7.8* HCT 24.2* 24.2* 22.5* PLTCT 626* 711* 660* Estimated Creatinine Clearance: 110.6 mL/min (based on SCr of 0.61 mg/dL). Vitals: 01/07/18 0638 01/08/18 0715 01/08/18 1000 Weight: 103.4 kg (227 lb 15.3 oz) 102.4 kg (225 lb 12 oz) 104.1 kg (229 lb 8 oz ) Thyroid Studies Lab Results Component Value Date/Time TSH 16.790 (H) 01/09/2018 01:40 PM No results found for: FREET3, [id number], THYBINDGLB Kalie Sibley, Endocrine fellow Pager [phone] * Arnaldo Delacruz MD - 01/11/2018 10:50 AM CDT Formatting of this note may be different from the original. Physical Medicine & Rehabilitation Progress Note Patient name: Beata Kaiser Patient age: 52 y.o. Today's Date: 01/11/2018 Admission Date: 12/13/2017 LOS: 29 days Assessment/Plan: Principal Problem: Pelvic mass Active Problems: Chondrosarcoma (HCC) Pelvic mass in female Metabolic acidosis Acute blood loss as cause of postoperative anemia Depression Anxiety DM (diabetes mellitus) (HCC) 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 Hemorrhagic shock (HCC) Chronic pain Beata Kaiseris a 52 y.o.female[facility] the following issues: S/p hemipelvectomy for left pelvic chondrosarcoma Impairments: amputation (lower extremity), pain and poor activity tolerance Activity Limitations: grooming, bathing, dressing - lower, toileting, bladder control, transfers, ambulation and stairs Participation Restrictions: unable to return home safely This is a follow up visit from initial consultation performed on 12/27/2017 Beata Kaiser is a 52 yo F who presented to [facility] on 12/13/17 for scheduled left hemipelvectomy for [...] urethral injury. These were repaired by urology. NGT placed for post-op nutrition and has since been removed. Pt developed increasing leukocytosis and fevers post-op and infectious disease consulted for further work-up. Pt started on anti-bx for possible hospital acquired pneumonia. Fluconazole started for candiduria as per urology. Psych consulted for depression. Ex lap w/ diverting colostomy performed on 12/30 for stool diversion for non-healing wounds. Endocrinology was consulted for DMII hyperglycemia on TPN. TPN discontinued on 01/02 with diet advancement. ID following with abx management for GBS bacteriemia w/ sepsis, aracely UTI; currently on Zosyn, Micafungin. Hyponatermia treated with fluid restriction. Urology performed cystogram w/ Melchor catheter exchange on 01/10; Orhto performed wound exploration, I&D, wound vac placement 10/22 persistent wound drainage on 01/10. Last PT evaluation was prior to wound exploration (01/09 ) with persistent goals. Recommendations: The patient certainly has persistent goals with rehab therapies and medical complexity to warrant acute inpatient rehab. Our service will continue to follow and monitor her toleration for therapies and offer encouragement for continued participation. Arnaldo Delacruz MD Subjective Beata Kaiser is a 52 y.o. female. The patient reports significant post operative pain after her most recent procedure, but remains determined to participate with rehab therapies with the goal of discharging to acute inpatient rehab. She currently denies N&V, CP, SOB. Current Level Of Function: PT Gait: Bed Mobility/Transfers Bed Mobility: Rolling: Moderate Assist, Assist with Trunk Bed Mobility: Supine to Sit: Moderate Assist, Head of Bed Elevated, Use of Rail , Assist with Trunk Bed Mobility: Sit to Supine: Minimal Assist, HOB Elevated, Assist with R LE Comments: Pt complained of dizziness when first sitting up, blood pressure was measured at 138/73. Transfer Type: Sliding Board Transfer: Assistance Level: To, Wheelchair, From, Bed, Maximal Assist Transfer: Assistive Device: Sliding Board Transfers: Type Of Assistance: Verbal Cues, For Strength Deficit, For Balance, Knees(s) Blocked, For Slide Board Placement, For Safety Considerations, Requires Extra Time Other Transfer Type: Sliding Board Other Transfer: Assistance Level: To, Bed, From, Wheelchair, Maximal Assist Other Transfer: Assistive Device: Sliding Board Other Transfer: Type Of Assistance: Knees(s) Blocked, Verbal Cues, For Balance, For Strength Deficit, For Safety Considerations, For Slide Board Placement End Of Activity Status: In Bed, Nursing Notified, Instructed Patient to Use Call Light Comments: Patient declines attempting sit to stand at this time. She was able to perform anterior weight shift and use UEs to assist with slide board transfers. Once in wheelchair, with roho, patient reports discomfort at her tailbone and wishes to return to bed. Patient prefers to transfer to the left. OT ADL's Where Assessed: Edge of Bed, Wheelchair, Supine, Bed Eating Assist: Independent (nocturnal corpak feeds) Eating Deficits: No Assist Needed, Beverage Management Grooming Assist: Stand By Assist Grooming Deficits: Setup, Brushing Hair (towel drying hair) Bathing Assist: Minimal Assist (for sitting balance, upper body bathing only) Bathing Deficits: Chest, L Arm, R Arm, Abdomen, Steadying, Verbal Cueing, Increased Time to Complete UE Dressing Assist: Stand By Assist UE Dressing Deficits: Setup, Thread RUE, Thread LUE, Pull Around Back LE Dressing Assist: Maximum Assist LE Dressing Deficits: Thread RLE Into Pants, Pull Up Over Hips Toileting Assist: (melchor) Toileting Deficits: (ostomy and melchor) Functional Transfer Assist: Minimal Assist (bed mobility) Functional Transfer Deficits: (wheelchair transfer) Comment: Pt performed 10 reps x's 2 sets of trapeze pull ups with UEs while in supine for strengthening exercises. Pt transferred to EOB and performed grooming and UE theraband exercises. Pt returned to bed and sheets changed due to wound saturated pads. Pt worked on scooting hips along EOB towards right and able to clear buttocks better this day ERP IMPLEMENTATION CONSULTANT COGNITIVE EVALUATION SUMMARY PRAGMATICS: BEHAVIOR: AUDITORY COMPREHENSION: ORIENTATION: AUDITORY ATTENTION/WORKING MEMORY: AUDITORY MEMORY/SUSTAINED ATTENTION: NEW LEARNING: SEQUENCING/ORGANIZATION: PROBLEM SOLVING: REASONING: MATH/MONEY SKILLS: VISUAL PERCEPTUAL: SWALLOW EVALUATION SUMMARY Review of Systems - A 10 point review of systems was negative accept where reported in the HPI Medications Scheduled Meds: acetaminophen (TYLENOL) tablet 1,000 mg 1,000 mg Oral Q8H* buPROPion (WELLBUTRIN) tablet 100 mg 100 mg Oral TID busPIRone (BUSPAR) tablet 15 mg 15 mg Oral BID ertapenem (INVANZ) IVP 1 g 1 g Intravenous Q24H* gabapentin (NEURONTIN) capsule 400 mg 400 mg Oral TID (8-17) gabapentin (NEURONTIN) capsule 800 mg 800 mg Oral QHS insulin aspart U-100 (NOVOLOG FLEXPEN) injection PEN 0-14 Units 0-14 Units Subcutaneous 5 X Day insulin aspart U-100 (NOVOLOG FLEXPEN) injection PEN 14 Units 14 Units Subcutaneous TID after meals insulin glargine (LANTUS SOLOSTAR, BASAGLAR) injection PEN 22 Units 22 Units Subcutaneous QHS insulin NPH (HUMULIN N KwikPen) injection PEN 66 Units 66 Units Subcutaneous QDAY(17) lactobacillus rhamnosus GG (CULTURELLE) 15 billion cell capsule 1 capsule 1 capsule Oral BID w/meals levothyroxine (SYNTHROID) tablet 175 mcg 175 mcg Oral QDAY before breakfast lidocaine (LIDODERM) 5 % topical patch 2 patch 2 patch Topical QDAY [START ON 01/12/2018] lidocaine 2% (20 mg/mL) injection 50 mL 50 mL SEE ADMIN INSTRUCTIONS Once per day on Wed micafungin (MYCAMINE) 100 mg in sodium chloride 0.9% (NS) 100 mL IVPB (MB+) 100 mg Intravenous Q24H* neomycin tablet 500 mg 500 mg Oral Q6H* oxyCODONE SR (OXYCONTIN) tablet 20 mg [address] (PROTONIX) tablet 40 mg 40 mg Oral QDAY(21) rivaroxaban (XARELTO) tablet 20 mg 20 mg Oral QDAY w/breakfast vitamin A & D topical ointment Topical BID Continuous Infusions: lactated ringers infusion 20 mL/hr at 01/10/18 0828 PRN and Respiratory Meds:alum/mag hydroxide/simeth Q6H PRN, calcium carbonate Q4H PRN, diazePAM Q6H PRN, diphenhydrAMINE Q6H PRN OR [DISCONTINUED] diphenhydrAMINE Q6H PRN, naloxone PRN, ondansetron (ZOFRAN) IV Q6H PRN, oxyCODONE Q3H PRN, pancrelipase 20,000 Units/ sodium bicarbonate 650 mg(#) PRN ( Sharepoint Application 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 Rx), simethicone Q6H PRN Objective Vital Signs: Last Filed Vital Signs: 24 Hour Range BP: 118/66 (01/11 955) Temp: 36.6 C (97.9 F) (01/11 955) Pulse: 97 (01/11 955) Respirations: 18 PER MINUTE (01/11 955) SpO2: 98 % (01/11 955) O2 Delivery: None (Room Air) (01/11 955) SpO2 Pulse: 91 (01/10 1215) BP: (96-135)/(60-80) Temp: [36.5 C (97.7 F)-36.7 C (98.1 F)] Pulse: [91-108] Respirations: [9 PER MINUTE-18 PER MINUTE] SpO2: [92 %-100 %] O2 Delivery: None (Room Air) Intensity Pain Scale 0-10 (Pain 1): 7 (01/11/18 0944) Vitals: 01/07/18 0638 01/08/18 0715 01/08/18 1000 Weight: 103.4 kg (227 lb 15.3 oz) 102.4 kg (225 lb 12 oz) 104.1 kg (229 lb 8 oz ) Intake/Output Summary: (Last 24 hours) Intake/Output Summary (Last 24 hours) at 01/11/18 1051 Last data filed at 01/11/18 0955 Gross per 24 hour Intake 1168 ml Output 4545 ml Net -3377 ml Stool Occurrence: 1 Oral Diet Order: Diabetic 9247-0682 Kcal/day (60 g Carb/meal, 30 g Carb/HS snack ) Last BM Date: 01/10/18 Bowel Accident: 1 Physical Exam VS: BP 118/66 (BP Source: Arm, Left) | Pulse 97 | Temp 36.6 C (97.9 F) | Ht 162.6 cm (64") | Wt 104.1 kg (229 lb 8 oz) | SpO2 98% | BMI 39.39 kg/m Gen: AOX3, NAD HEENT: EOMI, MMM Heart: Extremtities well perfused Lungs: Good inspiratory effort without recruitment of accessory muscles Abd: Soft, non-distended Ext: Lt hemipelvectomy Psych: Pleasent mood * Naresh Lynchssshelby Pyane, DO - 01/10/2018 4:07 PM CDT Formatting of this note may be different from the original. Infectious Diseases Progress Note Today's Date: 01/10/2018 Admission Date: 12/13/2017 Assessment: # Leukocytosis- improved- ? Response to addition of migafungin - Unclear etiology - improved overall since starting micafungin; ? Fluconazole resistant Aracely spp # GBS bacteremia w sepsis- source suspected left hip wound - Fever and leukocytosis began 12/20/17 - 12/21 L lower lobe infiltrate - read as atelectasis - 12/20 C. diff negative - 12/23 Bcx 09/21 set group B streptococcus; source seems most likely intra-pelvic - CT pelvis 12/25: "Ill-defined fluid and air along the anterior margin of the surgical site away from the drain tip. However, no discrete drainable fluid collection is noted. - OR 01/10 for wound eval - no sign of infection - posterior wound starting to granulate, WV replaced # Candiduria - 12/21/17 UA: wbc 2-10, negative nitrite, 1+ luukocytes, Culture > 100,000 Aracely sp - Sensitivities not done, unsure if fluconazole susceptible; repeat urine culture negative 12/28 but improved with micafungin so is suspicion for fluconazole resistance - Treating given indwelling melchor and inability to remove melchor d/t recent bladder repair - ? Candidal intertrigo - groin/mons - Cath change in OR 01/10 - no bladder leak at that time # s/p hemipelvectomy for Chondrosarcoma - 11/25/17 [...] when she had dental caries Recommendations: 1. Change Zosyn to ertapenem 1 gram daily for ease of outpt dosing 2. Continue micafungin 3. Monitor for abx toxicity with cbc, cmp 4. Tentative plan for 2 more weeks IV antibiotic therapy from today 5. Will follow Complexity of medical decision making is high b/c of the multi-system nature of the infectious disease process and concerns about the complexity of the patient illness including the sensitivity of the organisms being treated, the potential for drug toxicity and interactions, concerns about immunologic function, and interplay of other issues. Interval History Afebrile, stable vital signs OR today for eval: cystoscopy - no leak, catheter changed Wounds: no sign of infection, WV changed Denies f/c/s No cough, sob, CP, n/v. Pain ok at this time Antimicrobial Start date End date Erythromycin 12/13 Neomycin 12/13 12/13 Polymyxin B 12/14 12/14 Gentamycin 12/14 12/15 Clindamycin 12/14 12/22 Pip/tazo 12/22 active Fluconazole 12/22 12/30 Vancomycin 12/23 12/27 Micafungin 12/30 active Estimated Creatinine Clearance: 110.6 mL/min (based on SCr of 0.6 mg/dL). Medications Scheduled Meds: acetaminophen (TYLENOL) tablet 1,000 mg 1,000 mg Oral Q8H* buPROPion (WELLBUTRIN) tablet 100 mg 100 mg Oral TID busPIRone (BUSPAR) tablet 15 mg 15 mg Oral BID gabapentin (NEURONTIN) capsule 400 mg 400 mg Oral TID (05-01-17) gabapentin (NEURONTIN) capsule 800 mg 800 mg Oral QHS insulin aspart U-100 (NOVOLOG FLEXPEN) injection PEN 0-14 Units 0-14 Units Subcutaneous 5 X Day insulin aspart U-100 (NOVOLOG FLEXPEN) injection PEN 12 Units 12 Units Subcutaneous TID after meals insulin glargine (LANTUS SOLOSTAR, BASAGLAR) injection PEN 20 Units 20 Units Subcutaneous QHS insulin NPH (HUMULIN N KwikPen) injection PEN 66 Units 66 Units Subcutaneous QDAY(17) lactobacillus rhamnosus GG (CULTURELLE) 15 billion cell capsule 1 capsule 1 capsule Oral BID w/meals levothyroxine (SYNTHROID) tablet 175 mcg 175 mcg Oral QDAY before breakfast lidocaine (LIDODERM) 5 % topical patch 2 patch 2 patch Topical QDAY [START ON 01/12/2018] lidocaine 2% (20 mg/mL) injection 50 mL 50 mL SEE ADMIN INSTRUCTIONS Once per day on Wed micafungin (MYCAMINE) 100 mg in sodium chloride 0.9% (NS) 100 mL IVPB (MB+) 100 mg Intravenous Q24H* neomycin tablet 500 mg 500 mg Oral Q6H* oxyCODONE SR (OXYCONTIN) tablet 20 mg [address]HS [address] (PROTONIX) tablet 40 mg 40 mg Oral QDAY(21) piperacillin/tazobactam (ZOSYN) 4.5 g/100 mL iso-osmotic IVPB 4.5 g Intravenous Q6H* rivaroxaban (XARELTO) tablet 20 mg 20 mg Oral QDAY w/breakfast vitamin A & D topical ointment Topical BID Continuous Infusions: lactated ringers infusion 20 mL/hr at 01/10/18 0828 PRN and Respiratory Meds:alum/mag hydroxide/simeth Q6H PRN, calcium carbonate Q4H PRN, diazePAM Q6H PRN, diphenhydrAMINE Q6H PRN OR [DISCONTINUED] diphenhydrAMINE Q6H PRN, naloxone PRN, ondansetron (ZOFRAN) IV Q6H PRN, oxyCODONE Q3H PRN, pancrelipase 20,000 Units/ sodium bicarbonate 650 mg(#) PRN ( Sharepoint Application 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 Rx), simethicone Q6H PRN Physical Examination Vital Signs: Last Vital Signs: 24 Hour Range BP: 96/80 (01/10 1240) Temp: 36.5 C (97.7 F) (01/10 1215) Pulse: 97 (01/10 1240) Respirations: 16 PER MINUTE (01/10 1240) SpO2: 100 % (01/10 1240) O2 Delivery: None (Room Air) (01/10 1240) SpO2 Pulse: 91 (01/10 1215) BP: (96-127)/(60-80) Temp: [35.9 C (96.7 F)-37.9 C (100.3 F)] Pulse: [88-112] Respirations: [9 PER MINUTE-22 PER MINUTE] SpO2: [92 %-100 %] O2 Delivery: None (Room Air) General appearance: alert, oriented, no distress HENT: no oral lesions/thrush Lungs:clear anteriorly Heart: Regular rhythm, reg rate, with no murmur Abdomen: obese, normal bowel sounds, soft, non-tender, non distended; Colostomy w/ liquid brown stool in bag Ext: s/p left hemipelvectomy; There are areas of necrosis anterior wounds- along pannus continue to improve. Persistent dependent edema/erythema in the mons/vulvar area. Skin: no generalized rash; aracely in groin improved Psych: flat affect, sl anxious today Lines: PICC No erythema Lab Review Hematology Recent Labs 01/08/18 0322 01/09/18 0317 01/10/18 0330 WBC 9.2 9.0 9.2 HGB 8.5* 8.4* 8.3* HCT 25.6* 24.2* 24.2* PLTCT 619* 626* 711* Chemistry Recent Labs 01/08/18 0322 01/09/18 0317 01/10/18 0330 NA 137 135* 135* K 4.1 4.1 4.1 CL 101 99 99 CO2 28 29 29 BUN 17 16 16 CR 0.61 0.63 0.60 GFR >60 >60 >60 GLU 149* 179* 137* CA 8.5 8.1* 8.2* Microbiology, Radiology and other Diagnostics Review Microbiology data reviewed. Nani Lynch DO Pgr [phone] * Vincent Smiley MD - 01/10/2018 3:19 PM CDT Brief Urology Note - Cystogram performed in OR today and was found to be negative for a leak. Melchor catheter exchanged. Recommendations - - Melchor catheter duration per primary team. No indication for long-term catheterization from Urologic standpoint - Follow-up appointment changed to 02/17/18 for post-op appointment - Rest of care per primary team. Please call with questions/concerns Vincent Smiley MD Urology PGY3 * Bryanna Sepulveda - 01/10/2018 3:03 PM CDT PHYSICAL THERAPY MOBILITY NOTE Patient was assigned for activity with the mobility aide by the supervising therapist. Patient declined to participate despite encouragement. Aide: Bryanna Sepulveda Date: 01/10/2018 * Linus Pisano MD - 01/10/2018 2:50 PM CDT Formatting of this note may be different from the original. Endocrinology Hospital Follow Up Visit Today's Date: 01/10/2018 Admission Date: 12/13/2017 Assessment: 1. 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 Enteral Nutrition 4. Obesity Class III 5. Hyperlipidemia On lovastatin 6. Chondorsarcoma Pelvis s/p hemipelvectomy Recommendations: Glucose control in the last 24 hours at target Continue with Lantus 20 units QHS Continue NovoLog 12 units postmeal. Continue with MDCF x5 Tube feeds to restart tonight so Restart NPH 66 units to be given before the starting of the nocturnal Tube feed - please hold if tube feeds are held or planned to be held TSh this admit 26 and will recommend to continue with LT4 175mcg daily and the TSh elevation is likely nonthyroidal in nature as TSH durng admit was 2.1. She will need repeat TFTS in 6-8 weeks Current TF regimen : Nutren 1.5, goal rate 75ml/hr x 12hr at night Discussed with nursing staff Thank you for the consult , we will continue to follow Patient discussed with Dr. Pisano ATTESTATION I personally performed the banuelos portions of the E/M visit, discussed case with Dr. Sibley and concur with her documentation of history, physical exam, assessment , and treatment plan unless otherwise noted. Staff name: Linus Pisano MD Date: 01/10/2018 History of Present Illness Beata Kaiser is a 52 y.o. The patient states her appetite is good. She denies hypoglycemia. She denies nausea or vomiting. She is having some surgical pain. Continues to feel hot and sweaty . Went to the OR this am . Eating lunch this afternoon Estimated Creatinine Clearance: 110.6 mL/min (based on SCr of 0.6 mg/dL). Allergies Allergies Allergen Reactions Cephalexin SEE COMMENTS Face gets red, feels really hot, has tolerated penicillin Review of Systems The patient denies headache, vision changes, shortness of air, chest pain, abdominal pain, nausea or vomiting. Medications Scheduled Meds: acetaminophen (TYLENOL) tablet 1,000 mg 1,000 mg Oral Q8H* buPROPion (WELLBUTRIN) tablet 100 mg 100 mg Oral TID busPIRone (BUSPAR) tablet 15 mg 15 mg Oral BID gabapentin (NEURONTIN) capsule 400 mg 400 mg Oral TID (05-01-17) gabapentin (NEURONTIN) capsule 800 mg 800 mg Oral QHS insulin aspart U-100 (NOVOLOG FLEXPEN) injection PEN 0-14 Units 0-14 Units Subcutaneous 5 X Day insulin aspart U-100 (NOVOLOG FLEXPEN) injection PEN 12 Units 12 Units Subcutaneous TID after meals insulin glargine (LANTUS SOLOSTAR, BASAGLAR) injection PEN 20 Units 20 Units Subcutaneous QHS insulin NPH (HUMULIN N KwikPen) injection PEN 66 Units 66 Units Subcutaneous QHS lactobacillus rhamnosus GG (CULTURELLE) 15 billion cell capsule 1 capsule 1 capsule Oral BID w/meals levothyroxine (SYNTHROID) tablet 175 mcg 175 mcg Oral QDAY before breakfast lidocaine (LIDODERM) 5 % topical patch 2 patch 2 patch Topical QDAY [START ON 01/12/2018] lidocaine 2% (20 mg/mL) injection 50 mL 50 mL SEE ADMIN INSTRUCTIONS Once per day on Wed micafungin (MYCAMINE) 100 mg in sodium chloride 0.9% (NS) 100 mL IVPB (MB+) 100 mg Intravenous Q24H* neomycin tablet 500 mg 500 mg Oral Q6H* oxyCODONE SR (OXYCONTIN) tablet 20 mg 20 mg Oral QHS pantoprazole DR (PROTONIX) tablet 40 mg 40 mg Oral QDAY(21) piperacillin/tazobactam (ZOSYN) 4.5 g/100 mL iso-osmotic IVPB 4.5 g Intravenous Q6H* rivaroxaban (XARELTO) tablet 20 mg 20 mg Oral QDAY w/breakfast vitamin A & D topical ointment Topical BID Continuous Infusions: lactated ringers infusion 20 mL/hr at 01/10/18 0828 PRN and Respiratory Meds:alum/mag hydroxide/simeth Q6H PRN, calcium carbonate Q4H PRN, diazePAM Q6H PRN, diphenhydrAMINE Q6H PRN OR [DISCONTINUED] diphenhydrAMINE Q6H PRN, naloxone PRN, ondansetron (ZOFRAN) IV Q6H PRN, oxyCODONE Q3H PRN, pancrelipase 20,000 Units/ sodium bicarbonate 650 mg(#) PRN ( Sharepoint Application 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 Rx), simethicone Q6H PRN Physical Examination Vital Signs: Last Vital Signs: 24 Hour Range BP: 96/80 (01/10 1240) Temp: 36.5 C (97.7 F) (01/10 1215) Pulse: 97 (01/10 1240) Respirations: 16 PER MINUTE (01/10 1240) SpO2: 100 % (01/10 1240) O2 Delivery: None (Room Air) (01/10 1240) SpO2 Pulse: 91 (01/10 1215) BP: (96-127)/(60-80) Temp: [35.9 C (96.7 F)-37.9 C (100.3 F)] Pulse: [88-112] Respirations: [9 PER MINUTE-22 PER MINUTE] SpO2: [92 %-100 %] O2 Delivery: None (Room Air) General appearance: alert, oriented, NAD, OG + Resp: breathing comfortably Abd; Colostomy + Ext: s/p left hemipelvectomy Neuro: Alert Recent Labs 01/09/18 1820 01/09/18 1937 01/09/18 2037 01/10/18 0339 01/10/18 0802 01/10/18 0843 01/10/18 1049 01/10/18 1353 GLUPOC 135* 135* 150* 131* 101* 100 87 140* Lab Review Point of Care Testing (Last 24 hours) Glucose: (!) 137 (01/10/18 0330) POC Glucose (Download): (!) 140 (01/10/18 1353) Recent Labs 01/08/18 0322 01/09/18 0317 01/09/18 1340 01/10/18 0330 NA 137 135* -- 135* K 4.1 4.1 -- 4.1 CL 101 99 -- 99 CO2 28 29 -- 29 GAP 8 7 -- 7 BUN 17 16 -- 16 CR 0.61 0.63 -- 0.60 GLU 149* 179* -- 137* CA 8.5 8.1* -- 8.2* TSH -- -- 16.790* -- Recent Labs 01/08/18 0322 01/09/18 0317 01/10/18 0330 WBC 9.2 9.0 9.2 HGB 8.5* 8.4* 8.3* HCT 25.6* 24.2* 24.2* PLTCT 619* 626* 711* Estimated Creatinine Clearance: 110.6 mL/min (based on SCr of 0.6 mg/dL). Vitals: 01/07/18 0638 01/08/18 0715 01/08/18 1000 Weight: 103.4 kg (227 lb 15.3 oz) 102.4 kg (225 lb 12 oz) 104.1 kg (229 lb 8 oz ) Thyroid Studies Lab Results Component Value Date/Time TSH 16.790 (H) 01/09/2018 01:40 PM No results found for: FREET3, [id number], THYBINDGLB Kalie Sibley, Endocrine fellow Pager [phone] * Cassandra Villatoro - 01/10/2018 2:09 PM CDT PHYSICAL THERAPY NOTE Patient declined to participate despite encouragement and education about the role and benefits of physical therapy. Pt C/O increased pain due to wound vac being placed this morning in OR. RN aware. Physical therapy will continue to follow and provide intervention as indicated. Therapist: Cassandra Villatoro Date: 01/10/2018 * Stephanie Mendoza RN - 01/10/2018 12:07 PM CDT 1207:Report given to SANJAY Dumont on unit 43. * Lexus Shirley, OT - 01/10/2018 11:49 AM CDT OCCUPATIONAL THERAPY NOTE Patient to OR this date for wound vac and I&D. OT will plan to follow up tomorrow post-operatively. Therapist: Lexus Shirley OTR/L [id number] Date: 01/10/2018 * Adrienne Zarate MD - 01/10/2018 7:30 AM CDT Formatting of this note may be different from the original. Subjective: No acute events overnight. Pain tolerable. Tolerating diet. Agreeable with plan for OR today. Objective: Blood pressure 108/60, pulse 112, temperature 37.9 C (100.3 F), height 162.6 cm (64"), weight 104.1 kg (229 lb 8 oz), SpO2 97 %. General: AAOx3, NAD Cardiac: tachycardic Respirations: Unlabored Abdomen: soft, nd, induration about the distal pannus around wounds Extremities: LLE hemipelvectomy, dressings continue to be saturated posteriorly. multiple wounds in different stages of healing about the incision No results for input(s): PTT, INR in the last 72 hours. 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 NPO for OR -Posted for OR 4/23, consent in chart -Melchor catheter x4 wks minimum - uro following -Maintain dressings, ortho to manage - reinforce as needed -Orals for pain control, gabapentin - Nursing pain management consult. -Xarelto for DVT -Please do not leave flat for extended periods of time, patient to lay onto her right side as much as possible -Acute blood loss anemia - Hgb 8.4, will continue to monitor -Rehab consult- appreciate recs- recommend [facility] at [place] -Psych, HUMAN RESOURCES RECEPTIONIST psych and psychology consults for coping, depression - appreciate assistance -Endocrine consult for blood sugar management - appreciate recs -ID consult - Zosyn, micafungin -Nutrition following for optimization -General Surgery consult - colostomy 12/30 -Sodium normalizing- discontinue fluid restriction Dispo: Continued drainage, plan for OR today for wound exploration and wound vac placement Adrienne Zarate MD [id number] * Earl Shetty MD - 01/09/2018 1:54 PM CDT Brief Urology Progress Note Patient has been having persistent drainage from the posterior aspect of her wound is scheduled with primary team to undergo wound exploration of left hemipelvectomy, irrigation and debridement and wound vac placement on 01/10 at 9: 35AM (Add On) to address the drainage. Urology was paged given our involvement with the original left hemipelvectomy case on 12/14 with repairing of the bladder and urethra. I assessed the patient and she states she has not had issues with the catheter. A urine culture from 12/21 grew aracely and a repeat culture from 12/28 showed no growth after treatment. She states the melchor has been draining clear yellow urine and has not had issues with clotting. CT from was reviewed and the bladder was decompressed with melchor in place. - Cystogram ordered to determine need for urological surgical intervention. Radiology will attempt to book as first case on 01/10 prior to surgery. Earl Shetty * Deonna Diaz MBBS - 01/09/2018 12:54 PM CDT Formatting of this note may be different from the original. Endocrinology Hospital Follow Up Visit Today's Date: 01/09/2018 Admission Date: 12/13/2017 Assessment: 1. 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 Enteral Nutrition 4. Obesity Class III 5. Hyperlipidemia On lovastatin 6. Chondorsarcoma Pelvis s/p hemipelvectomy Recommendations: Glucose control looks adequate. Continue with NPH 66 units to be given before the starting of the nocturnal Tube feed - please hold if tube feeds are held or planned to be held Continue with Lantus 20 units QHS Continue NovoLog 12 units postmeal. Continue with [facility] Check TSH and free T4 as patient is complaining of feeling hot alternating with feeling cold although this is less likely because of thyroid dysfunction. TSH was normal in 12/21/2017 and elevated on 01/02/2018. Currently 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 daily. Current TF regimen : Nutren 1.5, goal rate 75ml/hr x 12hr at night Thank you for the consult , we will continue to follow Patient discussed with Dr. Concepcion History of Present Illness Beata Kaiser is a 52 y.o. The patient states her appetite is much better. She denies hypoglycemia. She denies nausea or vomiting. She is having some surgical pain. For the past 2 days she is feeling cold alternating with feeling hot and sweaty and she wonders if this is because of her thyroid. Estimated Creatinine Clearance: 110.6 mL/min (based on SCr of 0.63 mg/dL). Allergies Allergies Allergen Reactions Cephalexin SEE COMMENTS Face gets red, feels really hot, has tolerated penicillin Review of Systems The patient denies headache, vision changes, shortness of air, chest pain, abdominal pain, nausea or vomiting. Medications Scheduled Meds: acetaminophen (TYLENOL) tablet 1,000 mg 1,000 mg Oral Q8H* buPROPion (WELLBUTRIN) tablet 100 mg 100 mg Oral TID busPIRone (BUSPAR) tablet 15 mg 15 mg Oral BID gabapentin (NEURONTIN) capsule 400 mg 400 mg Oral TID (8-12-17) gabapentin (NEURONTIN) capsule 800 mg 800 mg Oral QHS insulin aspart U-100 (NOVOLOG FLEXPEN) injection PEN 0-14 Units 0-14 Units Subcutaneous 5 X Day insulin aspart U-100 (NOVOLOG FLEXPEN) injection PEN 12 Units 12 Units Subcutaneous TID after meals insulin glargine (LANTUS SOLOSTAR, BASAGLAR) injection PEN 20 Units 20 Units Subcutaneous QHS insulin NPH (HUMULIN N KwikPen) injection PEN 66 Units 66 Units Subcutaneous QHS lactobacillus rhamnosus GG (CULTURELLE) 15 billion cell capsule 1 capsule 1 capsule Oral BID w/meals levothyroxine (SYNTHROID) tablet 175 mcg 175 mcg Oral QDAY before breakfast lidocaine (LIDODERM) 5 % topical patch 2 patch 2 patch Topical QDAY micafungin (MYCAMINE) 100 mg in sodium chloride 0.9% (NS) 100 mL IVPB (MB+) 100 mg Intravenous Q24H* neomycin tablet 500 mg 500 mg Oral Q6H* oxyCODONE SR (OXYCONTIN) tablet 20 mg 20 mg Oral QHS pantoprazole DR (PROTONIX) tablet 40 mg 40 mg Oral QDAY(21) piperacillin/tazobactam (ZOSYN) 4.5 g/100 mL iso-osmotic IVPB 4.5 g Intravenous Q6H* rivaroxaban (XARELTO) tablet 20 mg 20 mg Oral QDAY w/breakfast vitamin A & D topical ointment Topical BID Continuous Infusions: PRN and Respiratory Meds:alum/mag hydroxide/simeth Q6H PRN, calcium carbonate Q4H PRN, diazePAM Q6H PRN, diphenhydrAMINE Q6H PRN OR [DISCONTINUED] diphenhydrAMINE Q6H PRN, naloxone PRN, ondansetron (ZOFRAN) IV Q6H PRN, oxyCODONE Q3H PRN, pancrelipase 20,000 Units/ sodium bicarbonate 650 mg(#) PRN ( Sharepoint Application 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 Rx), simethicone Q6H PRN Physical Examination Vital Signs: Last Vital Signs: 24 Hour Range BP: 118/54 (01/09 1014) Temp: 36.8 C (98.3 F) (01/09 1014) Pulse: 106 (01/09 1014) Respirations: 18 PER MINUTE (01/09 1014) SpO2: 96 % (01/09 1014) O2 Delivery: None (Room Air) (01/09 06) BP: (118-141)/(54-79) Temp: [36.8 C (98.3 F)-37.3 C (99.2 F)] Pulse: [97-123] Respirations: [16 PER MINUTE-18 PER MINUTE] SpO2: [94 %-97 %] O2 Delivery: None (Room Air) General appearance: alert, oriented, NAD, OG + CVS; RRR Resp: breathing comfortably Abd; Colostomy + Ext: s/p left hemipelvectomy Neuro: Alert Recent Labs 01/07/18203401/08/1831601/08/18 0749 01/08/18 1247 01/08/18 1820 01/08/18 2101 01/09/18 0314 01/09/18 0812 GLUPOC 149* 108* 113* 214* 123* 240* 154* 150* Lab Review Point of Care Testing (Last 24 hours) Glucose: (!) 179 (01/09/18316) POC Glucose (Download): (!) 150 (01/09/18 0812) Recent Labs 01/07/1830101/08/1832101/09/18316 NA 137 137 135* K 4.3 4.1 4.1 CL 101 101 99 CO2 30 28 29 GAP 6 8 7 BUN 15 17 16 CR 0.65 0.61 0.63 GLU 186* 149* 179* CA 8.2* 8.5 8.1* ALBUMIN 2.2* -- -- Recent Labs 01/07/1830101/08/18 03201/09/18316 WBC 8.2 9.2 9.0 HGB 8.1* 8.5* 8.4* HCT 24.6* 25.6* 24.2* PLTCT 585* 619* 626* AST 21 -- -- ALT 19 -- -- ALKPHOS 100 -- -- Estimated Creatinine Clearance: 110.6 mL/min (based on SCr of 0.63 mg/dL). Vitals: 01/07/18 0638 01/08/18 0715 01/08/18 1000 Weight: 103.4 kg (227 lb 15.3 oz) 102.4 kg (225 lb 12 oz) 104.1 kg (229 lb 8 oz ) Thyroid Studies Lab Results Component Value Date/Time TSH 12.590 (H) 01/02/2018 09:45 AM No results found for: FREET3, [id number], THYBINDGLB Pertinent radiology images viewed. Deonna Diaz MD Endocrinology Fellow PGY-5 Associated attestation - Serenity Concepcion MD - 01/09/2018 1:48 PM CDT Formatting of this note may be different from the original. ATTESTATION I personally performed the banuelos portions of the E/M visit, discussed case with resident and concur with resident documentation of history, physical exam, assessment, and treatment plan unless otherwise noted. Ms. Kaiser will be NPO at midnight tonight to go to OR tomorrow. I have change NPH dosing so that none will be given tonight in anticipation of TF being held tonight. Call into ortho to confirm that TFs will be in fact held at midnight. Staff name: Serenity Concepcion MD Date: 01/09/2018 * Gerald Lund, PT - 01/09/2018 11:46 AM CDT PHYSICAL THERAPY RE-ASSESSMENT MOBILITY: Mobility Progressive Mobility Level: Active transfer to chair Level of Assistance: Assist X1 Assistive Device: Transfer / slide board Time Tolerated: 11-30 minutes Activity Limited By: Pain SUBJECTIVE: Subjective Significant hospital events: 52 y/o F with history of left osteosarcoma s/p left hemipelvectomy, cystorrhaphy and bladder neck repair, cystoscopy, and left iliac exposure 12/14/17 Mental / Cognitive Status: Alert;Cooperative;Oriented Pain: Patient complains of pain;10;Before activity Pain Location: Left;Hip Pain Interventions: Patient pre-medicated;Patient agrees to participate in therapy;Patient assisted into position of comfort L LE Precautions: LLE Non-Weight Bearing Comments: Lay on right side as much as possible for edema management per ortho. Don't lie flat for extended periods of time. Compression shorts Ambulation Assist: Independent Mobility in Community without Device Patient Owned Equipment: Crutches Home Situation: Lives with Family Type of Home: House Entry Stairs: 1-2 Stairs In-Home Stairs: No Stairs ROM: ROM ROM Position Assessed: Seated ROM Method: Active LE ROM: Right;Hip;Knee;Ankle;WFL STRENGTH: Strength Strength Position Assessed: Seated Overall Strength: Generalized Weakness;No Focal Deficits Noted Gross Strength Grade: 4/5 (right LE) R LE WNL: Yes POSTURE/NEURO: Posture / Neurological Head Control: Independent Posture: Obesity BED MOBILITY/TRANSFERS: Bed Mobility/Transfers Bed Mobility: Supine to Sit: Moderate Assist;Head of Bed Elevated;Use of Rail; Assist with Trunk Bed Mobility: Sit to Supine: Minimal Assist;HOB Elevated;Assist with R LE Transfer Type: Sliding Board Transfer: Assistance Level: To;Wheelchair;From;Bed;Maximal Assist Transfer: Assistive Device: Sliding Board Transfers: Type Of Assistance: Verbal Cues;For Strength Deficit;For Balance; Knees(s) Blocked;For Slide Board Placement;For Safety Considerations;Requires Extra Time Other Transfer Type: Sliding Board Other Transfer: Assistance Level: To;Bed;From;Wheelchair;Maximal Assist Other Transfer: Assistive Device: Sliding Board Other Transfer: Type Of Assistance: Knees(s) Blocked;Verbal Cues;For Balance; For Strength Deficit;For Safety Considerations;For Slide Board Placement End Of Activity Status: In Bed;Nursing Notified;Instructed Patient to Use Call Light Comments: Patient declines attempting sit to stand at this time. She was able to perform anterior weight shift and use UEs to assist with slide board transfers. Once in wheelchair, with roho, patient reports discomfort at her tailbone and wishes to return to bed. Patient prefers to transfer to the left. BALANCE: Balance Sitting Balance: Static Sitting Balance;2 UE Support ACTIVITY/EXERCISE: Activity / Exercise Sit Edge Of Bed: 10 minutes Sit Edge Of Bed Assist: Stand By Assist EDUCATION: Education Persons Educated: Patient Patient Barriers To Learning: Pain;Anxiety Interventions: Repetition of Instructions Teaching Methods: Verbal Instruction;Demonstration Patient Response: Verbalized Understanding;Return Demonstration Topics: Use of Assistive Device/Orthosis;Mobility Progression;Plan/Goals of PT Interventions;Importance of Increasing Activity;Positioning;Recommend Continued Therapy ASSESSMENT/PROGRESS: Assessment/Progress Impaired Mobility Due To: Pain;Post Surgical Precautions;Post Surgical Changes; Decreased Activity Tolerance Impaired Strength Due To: Post Surgical Changes;Decreased Activity Tolerance; Deconditioning Assessment/Progress: Should Improve w/ Continued PT Comments: Patient demonstrates good upper body strength and trunk control with slide board transfers, but requires assist to scoot across slide board. AM-PAC 6 Clicks Basic Mobility Inpatient Turning from your back to your side while in a flat bed without using bed rails : A lot Moving from lying on your back to sitting on the side of a flatbed without using bedrails : A Lot Moving to and from a bed to a chair (including a wheelchair): A Lot Standing up from a chair using your arms (e.g. wheelchair, or bedside chair): A Lot To walk in hospital room: Total Climbing 3-5 steps with a railing: Total Raw Score: 10 Standardized (T-scale) Score: 28.13 Basic Mobility CMS 0-100%: 71.92 CMS G Code Modifier for Basic Mobility: CL GOALS: Goals Goal Formulation: With Patient/Family Time For Goal Achievement: 7 days Pt Will Go Supine To/From Sit: w/ Moderate Assist Pt Will Transfer Bed/Chair: w/ Moderate Assist Pt Will Transfer Sit to Stand: w/ Moderate Assist PLAN: Plan Treatment Interventions: Mobility Training;Coordination Training Plan Frequency: 5-7 Days per Week PT Plan for Next Visit: Continue to work on slide board transfers, improve standing tolerance RECOMMENDATIONS: PT Discharge Recommendations PT Discharge Recommendations: Inpatient Setting Equipment Recommendations: Too early to be determined PT PLAN FOR NEXT VISIT: PT Plan for Next Visit: Continue to work on slide board transfers, assess/ improve standing tolerance Therapist: Gerald Lund PT, DPT Date: 01/09/2018 * Adreinne Zarate MD - 01/09/2018 10:58 AM CDT Formatting of this note may be different from the original. Subjective: No acute events overnight. Pain tolerable. Tolerating diet. Objective: Blood pressure 118/54, pulse 106, temperature 36.8 C (98.3 F), height 162.6 cm (64"), weight 104.1 kg (229 lb 8 oz), SpO2 96 %. General: AAOx3, NAD Cardiac: tachycardic Respirations: Unlabored Abdomen: soft, nd, induration about the distal pannus around wounds Extremities: LLE hemipelvectomy, dressings continue to be saturated posteriorly. multiple wounds in different stages of healing about the incision No results for input(s): PTT, INR in the last 72 hours. CBC w/Diff Lab Results Component Value Date/Time WBC 9.0 01/09/2018 03:17 AM HGB 8.4 (L) 01/09/2018 03:17 AM HCT 24.2 (L) 01/09/2018 03:17 AM PLTCT 626 (H) 01/09/2018 03:17 AM Basic Metabolic Profile Lab Results Component Value Date/Time NA 135 (L) 01/09/2018 03:17 AM K 4.1 01/09/2018 03:17 AM CL 99 01/09/2018 03:17 AM CO2 29 01/09/2018 03:17 AM GAP 7 01/09/2018 03:17 AM Lab Results Component Value Date/Time BUN 16 01/09/2018 03:17 AM CR 0.63 01/09/2018 03:17 AM GLU 179 (H) 01/09/2018 03:17 AM A/P: 52 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 NPO at ID for OR tomorrow -Posted for OR 01/10 -Melchor catheter x4 wks minimum - uro following -Maintain dressings, ortho to manage - reinforce as needed -Orals for pain control, gabapentin - Nursing pain management consult. -Xarelto for DVT -Please do not leave flat for extended periods of time, patient to lay onto her right side as much as possible -Acute blood loss anemia - Hgb 8.4, will continue to monitor -Rehab consult- appreciate recs- recommend [facility] at [place] -Psych, HUMAN RESOURCES RECEPTIONIST psych and psychology consults for coping, depression - appreciate assistance -Endocrine consult for blood sugar management - appreciate recs -ID consult - Zosyn, micafungin -Nutrition following for optimization -General Surgery consult - colostomy 12/30 -Sodium normalizing- discontinue fluid restriction Dispo: Continued drainage, plan for OR 01/10 for wound exploration and wound vac placement Adrienne Zarate MD [id number] * Tamiko Luther MD - 01/09/2018 7:35 AM CDT Ms. Kaiser continues to have drainage from the posterior aspect of her wound. There is no warmth or erythema along the flap. I ordered and reviewed the CT to assess for any fluid collections, which were not seen. We continue to work on her nutrition. I have been speaking with her about returning to the OR tomorrow for I&D and wound vac placement to attempt to address the drainage. I described the procedure to her, and she wishes to proceed. 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 ([employer] for [employer]) Vision Current Vision: Wears Glasses All of the Time Vision Current Vision: Wears Glasses All of the Time ADL's Where Assessed: Edge of Bed;Wheelchair;Supine, Bed Eating Assist: Independent (nocturnal corpak feeds) Grooming Assist: Stand By Assist Grooming Deficits: Setup;Brushing Hair (towel drying hair) LE Dressing Assist: Maximum Assist LE Dressing Deficits: Thread RLE Into Pants;Pull Up Over Hips Toileting Assist: (melchor) Functional Transfer Assist: Minimal Assist (bed mobility) Comment: Pt performed 10 reps x's 2 sets of trapeze pull ups with UEs while in supine for strengthening exercises. Pt transferred to EOB and performed grooming and UE theraband exercises. Pt returned to bed and sheets changed due to wound saturated pads. Pt worked on scooting hips along EOB towards right and able to clear buttocks better this day Cognition Overall Cognitive Status: WFL to Adequately Complete Self Care Tasks Safely Attention: Awake/Alert UE Strength / Tone Overall Strength / Tone: 4+/5 Assessment Assessment: Decreased Self-Care Trans;Decreased ADL Status;Decreased UE Strength ;Decreased Endurance Prognosis: Good;w/Cont OT s/p Acute Discharge Goal Formulation: Patient Plan OT Plan for Next Visit: Slide b0ard transfer to [facility]/ ADL Goals Patient Will Perform LE Dressing: w/ Moderate Assist Functional Transfer Goals Pt Will Perform All Functional Transfers: Minimum Assist Pt Will Transfer To Bedside Commode: w/ Moderate Assist Pt Will Transfer To Toilet: w/ Minimum Assist Arm Goals Pt Will Complete Theraband Exer: B UE, 2 Sets, 10 Reps, Level 1 Theraband, Met OT Discharge Recommendations OT Discharge Recommendations: Inpatient Setting, To address deficits, maximize function and improve safety. Equipment Recommendations: [facility] [facility] [place] Therapist: HUYEN Schmidt Date: 01/08/2018 * Adrienne Zarate MD - 01/08/2018 12:17 PM CDT Formatting of this note may be different from the original. Subjective: No acute events overnight. Pain controlled this morning. Abdominal pain and indigestion improved. Having episodes of extreme hot and then cold that are bothersome. Objective: Blood pressure 123/70, pulse 100, temperature 36.5 C (97.7 F), height 162.6 cm (64"), weight 104.1 kg (229 lb 8 oz), SpO2 100 %. General: AAOx3, NAD Cardiac: tachycardic Respirations: Unlabored Abdomen: soft, nd, induration about the distal pannus around wounds Extremities: LLE hemipelvectomy, dressings saturated posteriorly. multiple wounds in different stages of healing about the incision No results for input(s): PTT, INR in the last 72 hours. CBC w/Diff Lab Results Component Value Date/Time WBC 9.2 01/08/2018 03:22 AM HGB 8.5 (L) 01/08/2018 03:22 AM HCT 25.6 (L) 01/08/2018 03:22 AM PLTCT 619 (H) 01/08/2018 03:22 AM Basic Metabolic Profile Lab Results Component Value Date/Time NA 137 01/08/2018 03:22 AM K 4.1 01/08/2018 03:22 AM CL 101 01/08/2018 03:22 AM CO2 28 01/08/2018 03:22 AM GAP 8 01/08/2018 03:22 AM Lab Results Component Value Date/Time BUN 17 01/08/2018 03:22 AM CR 0.61 01/08/2018 03:22 AM GLU 149 (H) 01/08/2018 03:22 AM A/P: 52 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 -Xarelto for DVT -Please do not leave flat for extended periods of time, patient to lay onto her right side as much as possible -Acute blood loss anemia - Hgb 8.1, will continue to monitor -Rehab consult- appreciate recs -Strongly recommend patient be discharged to IRF instead of SNF, would prefer [facility] -Psych, HUMAN RESOURCES RECEPTIONIST psych and psychology consults for coping, depression - appreciate assistance -Endocrine consult for blood sugar management - appreciate recs -ID consult - Zosyn, micafungin -Nutrition following for optimization -General Surgery consult - colostomy 12/30 Dispo: Continue inpatient care, if drainage persists over the weekend then plan for exploration of wound and wound vac placement in OR on 01/11 Adrienne Zarate MD [id number] * Annette Ling RN - 01/07/2018 5:41 PM CDT I have reviewed the notes, assessment, and/or procedures performed by Denise Ortega and concur with her/his documentation unless otherwise noted. * Indy Isabel MD - 01/07/2018 5:34 PM CDT Formatting of this note may be different from the original. Infectious Diseases Progress Note Today's Date: 01/07/2018 Admission Date: 12/13/2017 Assessment: # Leukocytosis- improved- ? Response to addition of migafungin - Unclear etiology - improved overall since starting micafungin; ? Fluconazole resistant Aracely spp - 01/03 down to 11.8 # GBS bacteremia w sepsis- source suspected left hip wound - Fever and leukocytosis began 12/20/17 - 4/3 L lower lobe infiltrate - read as atelectasis - 12/20 C. diff negative - 12/23 Bcx 09/21 set group B streptococcus; source seems most likely intra-pelvic - CT pelvis 12/25: "Ill-defined fluid and air along the anterior margin of the surgical site away from the drain tip. However, no discrete drainable fluid collection is noted." # Candiduria - 12/21/17 UA: wbc 2-10, negative nitrite, 1+ luukocytes, Culture > 100,000 Aracely sp - Sensitivities not done, unsure if fluconazole susceptible; repeat urine culture negative 12/28 but improved with micafungin so is suspicion for fluconazole resistance - Treating given indwelling melchor and inability to remove melchor d/t recent bladder repair - ? 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 Continue Zosyn 2. Continue micafungin 3. Discussed w ortho- tentative plan for OR early next week to eval wound, place vac given ongoing drainage. Will obtain repeat cultures 4. Monitor for abx toxicity 5. Trend temp, WBC - 6. Tentative plan was to continue IV atbx for at least 2 more weeks, plan to be finalized after OR evaluation next week. Could potentially change to Zosyn to Ertapenem following OR and in anticipation of transfer to Rehab. 7. Dr Lynch will round on Wednesday. Please call ID clinical practice consultant in the interim if questions arise. Complexity of medical decision making is high b/c of the multi-system nature of the infectious disease process and concerns about the complexity of the patient illness including the sensitivity of the organisms being treated, the potential for drug toxicity and interactions, concerns about immunologic function, and interplay of other issues. Interval History Afebrile, stable vitals. Still had fair amount of drainage from Posterior left side of wound. Pain stable. No cough, sob, CP, n/v.. Ostomy working well. Still not eating well- hurts her stomach ROS otherwise neg Discussed w ortho- reviewed CT findings, no abscess or fluid collection but will re-explore and place vac Antimicrobial Start date End date Erythromycin 12/13 Neomycin 12/13 12/13 Polymyxin B 12/14 12/14 Gentamycin 12/14 12/15 Clindamycin 12/14 12/22 Pip/tazo 12/22 active Fluconazole 12/22 12/30 Vancomycin 12/23 12/27 Micafungin 12/30 active Estimated Creatinine Clearance: 110.1 mL/min (based on SCr of 0.65 mg/dL). Medications Scheduled Meds: acetaminophen (TYLENOL) tablet 1,000 mg 1,000 mg Oral Q8H* buPROPion (WELLBUTRIN) tablet 100 mg 100 mg Oral TID busPIRone (BUSPAR) tablet 15 mg 15 mg Oral BID gabapentin (NEURONTIN) capsule 400 mg 400 mg Oral TID (05-01-17) gabapentin (NEURONTIN) capsule 800 mg 800 mg Oral QHS insulin aspart U-100 (NOVOLOG FLEXPEN) injection PEN 0-14 Units 0-14 Units Subcutaneous 5 X Day insulin aspart U-100 (NOVOLOG FLEXPEN) injection PEN 14 Units 14 Units Subcutaneous TID after meals insulin glargine (LANTUS SOLOSTAR, BASAGLAR) injection PEN 20 Units 20 Units Subcutaneous QHS insulin NPH (HUMULIN N KwikPen) injection PEN 66 Units 66 Units Subcutaneous QHS lactobacillus rhamnosus GG (CULTURELLE) 15 billion cell capsule 1 capsule 1 capsule Oral BID w/meals levothyroxine (SYNTHROID) tablet 175 mcg 175 mcg Oral QDAY before breakfast lidocaine (LIDODERM) 5 % topical patch 2 patch 2 patch Topical QDAY micafungin (MYCAMINE) 100 mg in sodium chloride 0.9% (NS) 100 mL IVPB (MB+) 100 mg Intravenous Q24H* neomycin tablet 500 mg 500 mg Oral Q6H* oxyCODONE SR (OXYCONTIN) tablet 20 mg 20 mg Oral QHS pantoprazole DR (PROTONIX) tablet 40 mg 40 mg Oral QDAY(21) piperacillin/tazobactam (ZOSYN) 4.5 g/100 mL iso-osmotic IVPB 4.5 g Intravenous Q6H* rivaroxaban (XARELTO) tablet 20 mg 20 mg Oral QDAY w/breakfast vitamin A & D topical ointment Topical BID Continuous Infusions: PRN and Respiratory Meds:alum/mag hydroxide/simeth Q6H PRN, calcium carbonate Q4H PRN, diazePAM Q6H PRN, diphenhydrAMINE Q6H PRN OR [DISCONTINUED] diphenhydrAMINE Q6H PRN, naloxone PRN, ondansetron (ZOFRAN) IV Q6H PRN, oxyCODONE Q3H PRN, pancrelipase 20,000 Units/ sodium bicarbonate 650 mg(#) PRN ( Sharepoint Application 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 Rx), simethicone Q6H PRN Physical Examination Vital Signs: Last Vital Signs: 24 Hour Range BP: 129/74 (01/07 1420) Temp: 36.8 C (98.2 F) (01/07 1420) Pulse: 103 (01/07 1420) Respirations: 16 PER MINUTE (01/07 1420) SpO2: 97 % (01/07 1420) O2 Delivery: None (Room Air) (01/07 142) BP: (116-129)/(66-74) Temp: [36.5 C (97.7 F)-36.8 C (98.2 F)] Pulse: [103-108] Respirations: [16 PER MINUTE-18 PER MINUTE] SpO2: [96 %-98 %] O2 Delivery: None (Room Air) General appearance: obese, alert, oriented, HENT: mucus membranes moist, no oral lesions/thrush Eyes: EOMI, normal conj Lungs: no wheezing, rhonchi, rales appreciated anteriorly Heart: Regular rhythm, reg rate, with no murmur, rub, gallop Abdomen: obese, normal garcia sounds, soft, non-tender, non distended Ext: s/p left hemipelvectomy; There are areas of necrosis- along pannus continue to improve. Colostomy w/ soft brown stool in bag, stoma appears normal. Persistent dependent edema/erythema in the mons/vulvar area- waxes and wanes. Left vulvar lesion stable.The right lateral edge of wound seems sl more red, some echymosis but overall stable since yesterday Skin: no generalized rashes Psych: flat affect, depressed mood Lines: Indwelling melchor catheter Lab Review Hematology Recent Labs 01/05/18 03001/06/18 0252 01/07/18 0302 WBC 9.7 8.8 8.2 HGB 8.4* 8.0* 8.1* HCT 24.3* 24.2* 24.6* PLTCT 527* 545* 585* Chemistry Recent Labs 01/05/1830301/06/182 01/07/18 0302 NA 133* 135* 137 K 4.1 4.2 4.3 CL 98 99 101 CO2 30 30 30 BUN 13 11 15 CR 0.65 0.68 0.65 GFR >60 >60 >60 GLU 291* 192* 186* CA 8.3* 8.2* 8.2* ALBUMIN -- -- 2.2* ALKPHOS -- -- 100 AST -- -- 21 ALT -- -- 19 TOTBILI -- -- 0.2* Microbiology, Radiology and other Diagnostics Review Microbiology data reviewed. Indy Isabel MD Pager Beeper 2007 * Jasper Betts RN - 01/07/2018 3:04 PM CDT Inpatient Pain Management Nurses - Clinical Excellence Nursing Practice - Follow -Up Discussed patient with Dr. Adrienne Zarate (primary team) and nursing Jessica. Primary team is responsible for entering orders. Suggested Plan for the Day: Visited with patient ~ 20 minutes. Patient agreeable to and would benefit from psychiatry consult to help improve patient's outlook. Currently she is feeling depressed about her situation worried about who will take care of her, how will she recover, what her life is going to look like. She has always been the family member that kept everyone on track and never needed help. Consider changing gabapentin 800 mg PO q 8 hours ([id number]) to increase daily serum concentration and more steady serum concentration. Patient stating that it helps with phantom limb pain but currently experiencing end of dose failure with last dose having to last 12 hours. Consider changing oxycodone SR to 20 mg every 12 hours. This will allow a steady serum concentration of long lasting opioid in a 24 hour period and lessen the burden on short acting opioid oxycodone IR. Anticipated D/C Planning: IPR, continue at time of discharge current pain regimen to facilitate therapy sessions. S: Patient's current pain intensity: 7 Clinically Aligned Pain Assessment Comfort: Tolerable with discomfort Change in pain: Getting worse Pain control: Inadequate pain control Function: Pain keeps me from doing most of what I need to do Sleep: Awake with occasional pain O: Oral morphine equivalent (OME) used over past 24 hours (7:01 AM - 7:00 AM)- ~ 160 mg Current Analgesic Regimen, OME: Used 1 dose of hydromorphone IV 1 mg ~ 20 mg Used 6 doses of oxycodone 20 mg ~ 120 mg Used 1 dose of oxycodone SR 20 mg ~ 20 mg Impression: Ms. Kaiser asked if I could come back and speak with her. She indicated that she is having a hard time with phantom limb pain in the AM with last dose being given at 2100. We continued our discussion about her mental health and is open to having psychiatry round on her and make recommendations to improve her medications. I encouraged her to stay positive and dwell on the negative aspect of her recovery as she is currently doing. Please call with questions/concerns. Jasper Betts, MSN, RN- Clinical Nurse Coordinator Pain Management [phone] Team pager [phone] * Kalie Sibley MBBS - 01/07/2018 2:01 PM CDT Formatting of this note may be different from the original. [facility] Follow Up Visit Today's Date: 01/07/2018 Admission Date: 12/13/2017 Assessment: 1. 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 Enteral Nutrition 4. Obesity Class III 5. Hyperlipidemia On lovastatin 6. Chondorsarcoma Pelvis s/p hemipelvectomy Recommendations: Patient with adequate blood sugar control in the last 24 hours except for tight control this afternoon so we have made the following changes today Decrease Novolog to 14 units post meals Continue with NPH 66 units to be given before the starting of the nocturnal Tube feed - please hold if tube feeds are held or planned to be held Continue with Lantus 20 units QHS Continue with [facility] Current TF regimen : Nutren 1.5, goal rate 75ml/hr x 12hr at night Thank you for the consult , we will continue to follow Patient seen and discussed with Dr. Concepcion History of Present Illness Beata Kaiser is a 52 y.o. The patient states her appetite is improving and still not eating much . She denies hypoglycemia. She denies nausea or vomiting. She is having some surgical pain. No other new complaints. Estimated Creatinine Clearance: 110.1 mL/min (based on SCr of 0.65 mg/dL). Allergies Allergies Allergen Reactions Cephalexin SEE COMMENTS Face gets red, feels really hot, has tolerated penicillin Review of Systems The patient denies headache, vision changes, shortness of air, chest pain, abdominal pain, nausea or vomiting. Medications Scheduled Meds: acetaminophen (TYLENOL) tablet 1,000 mg 1,000 mg Oral Q8H* buPROPion (WELLBUTRIN) tablet 100 mg 100 mg Oral TID busPIRone (BUSPAR) tablet 15 mg 15 mg Oral BID gabapentin (NEURONTIN) capsule 400 mg 400 mg Oral TID (05-01-17) gabapentin (NEURONTIN) capsule 800 mg 800 mg Oral QHS insulin aspart U-100 (NOVOLOG FLEXPEN) injection PEN 0-14 Units 0-14 Units Subcutaneous 5 X Day insulin aspart U-100 (NOVOLOG FLEXPEN) injection PEN 16 Units 16 Units Subcutaneous TID after meals insulin glargine (LANTUS SOLOSTAR, BASAGLAR) injection PEN 20 Units 20 Units Subcutaneous QHS insulin NPH (HUMULIN N KwikPen) injection PEN 66 Units 66 Units Subcutaneous QHS lactobacillus rhamnosus GG (CULTURELLE) 15 billion cell capsule 1 capsule 1 capsule Oral BID w/meals levothyroxine (SYNTHROID) tablet 175 mcg 175 mcg Oral QDAY before breakfast lidocaine (LIDODERM) 5 % topical patch 2 patch 2 patch Topical QDAY micafungin (MYCAMINE) 100 mg in sodium chloride 0.9% (NS) 100 mL IVPB (MB+) 100 mg Intravenous Q24H* neomycin tablet 500 mg 500 mg Oral Q6H* oxyCODONE SR (OXYCONTIN) tablet 20 mg 20 mg Oral QHS pantoprazole DR (PROTONIX) tablet 40 mg 40 mg Oral QDAY(21) piperacillin/tazobactam (ZOSYN) 4.5 g/100 mL iso-osmotic IVPB 4.5 g Intravenous Q6H* rivaroxaban (XARELTO) tablet 20 mg 20 mg Oral QDAY w/breakfast vitamin A & D topical ointment Topical BID Continuous Infusions: PRN and Respiratory Meds:alum/mag hydroxide/simeth Q6H PRN, calcium carbonate Q4H PRN, diazePAM Q6H PRN, diphenhydrAMINE Q6H PRN OR [DISCONTINUED] diphenhydrAMINE Q6H PRN, naloxone PRN, ondansetron (ZOFRAN) IV Q6H PRN, oxyCODONE Q3H PRN, pancrelipase 20,000 Units/ sodium bicarbonate 650 mg(#) PRN ( Sharepoint Application 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 Rx), simethicone Q6H PRN Physical Examination Vital Signs: Last Vital Signs: 24 Hour Range BP: 123/72 (01/07 957) Temp: 36.5 C (97.7 F) (01/07 957) Pulse: 104 (01/07 957) Respirations: 16 PER MINUTE (01/07 957) SpO2: 97 % (01/07 957) O2 Delivery: None (Room Air) (01/07 957) BP: (114-125)/(66-87) Temp: [36.4 C (97.5 F)-36.7 C (98.1 F)] Pulse: [104-113] Respirations: [16 PER MINUTE-18 PER MINUTE] SpO2: [95 %-98 %] O2 Delivery: None (Room Air) General appearance: alert, oriented, NAD, OG + CVS; RRR Resp: breathing comfortably Abd; Colostomy + Ext: s/p left hemipelvectomy Neuro: Alert Recent Labs 01/06/18 0258 01/06/18 0758 01/06/18 1311 01/06/18 1724 01/06/18 2149 01/07/18 0304 01/07/18 0805 01/07/18 1340 GLUPOC 194* 136* 99 223* 204* 173* 131* 83 Lab Review Point of Care Testing (Last 24 hours) Glucose: (!) 186 (01/07/18 0302) POC Glucose (Download): 83 (01/07/18 1340) Recent Labs 01/05/18 0304 01/06/18 0252 01/07/18 0302 NA 133* 135* 137 K 4.1 4.2 4.3 CL 98 99 101 CO2 30 30 30 GAP 5 6 6 BUN 13 11 15 CR 0.65 0.68 0.65 GLU 291* 192* 186* CA 8.3* 8.2* 8.2* ALBUMIN -- -- 2.2* Recent Labs 01/05/18 0304 01/06/18 0252 01/07/18 0302 WBC 9.7 8.8 8.2 HGB 8.4* 8.0* 8.1* HCT 24.3* 24.2* 24.6* PLTCT 527* 545* 585* AST -- -- 21 ALT -- -- 19 ALKPHOS -- -- 100 Estimated Creatinine Clearance: 110.1 mL/min (based on SCr of 0.65 mg/dL). Vitals: 12/30/17 0820 01/05/18 0625 01/07/18 0638 Weight: 98.5 kg (217 lb 2.5 oz) 103.5 kg (228 lb 2.8 oz) 103.4 kg (227 lb 15.3 oz) Thyroid Studies Lab Results Component Value Date/Time TSH 12.590 (H) 01/02/2018 09:45 AM No results found for: FREET3, [id number], THYBINDGLB Pertinent radiology images viewed. RAMIREZ Soto 01/07/2018 Endocrine Associated attestation - Jamey, Serenity, MD - 01/07/2018 4:45 PM CDT Formatting of this note may be different from the original. ATTESTATION I personally performed the banuelos portions of the E/M visit, discussed case with resident and concur with resident documentation of history, physical exam, assessment, and treatment plan unless otherwise noted. Staff name: Serenity Concepcion MD Date: 01/07/2018 * Chari Moon - 01/07/2018 1:47 PM CDT PHYSICAL THERAPY NOTE Patient declined to participate despite encouragement and education about the role and benefits of physical therapy due to pain and not feeling well. Physical therapy will continue to follow and provide intervention as indicated. Therapist: Chari Moon Date: 01/07/2018 * Adrienne Zarate MD - 01/07/2018 11:41 AM CDT Formatting of this note may be different from the original. Subjective: No acute events overnight. Pain controlled. Continues to have indigestion and abdominal pain however improved after increased ostomy output this morning. Objective: Blood pressure 123/72, pulse 104, temperature 36.5 C (97.7 F), height 162.6 cm (64"), weight 103.4 kg (227 lb 15.3 oz), SpO2 97 %. General: AAOx3, NAD Cardiac: tachycardic Respirations: Unlabored Abdomen: soft, nd, induration about the distal pannus around wounds Extremities: LLE hemipelvectomy, dressings saturated posteriorly. multiple wounds in different stages of healing about the incision No results for input(s): PTT, INR in the last 72 hours. CBC w/Diff Lab Results Component Value Date/Time WBC 8.2 01/07/2018 03:02 AM HGB 8.1 (L) 01/07/2018 03:02 AM HCT 24.6 (L) 01/07/2018 03:02 AM PLTCT 585 (H) 01/07/2018 03:02 AM Basic Metabolic Profile Lab Results Component Value Date/Time NA 137 01/07/2018 03:02 AM K 4.3 01/07/2018 03:02 AM CL 101 01/07/2018 03:02 AM CO2 30 01/07/2018 03:02 AM GAP 6 01/07/2018 03:02 AM Lab Results Component Value Date/Time BUN 15 01/07/2018 03:02 AM CR 0.65 01/07/2018 03:02 AM GLU 186 (H) 01/07/2018 03:02 AM A/P: 52 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 -Xarelto for DVT -Please do not leave flat for extended periods of time, patient to lay onto her right side as much as possible -Acute blood loss anemia - Hgb 8.1, will continue to monitor -Rehab consult- appreciate recs -Strongly recommend patient be discharged to IRF instead of SNF, would prefer [facility] -Psych, HUMAN RESOURCES RECEPTIONIST psych and psychology consults for coping, depression - appreciate assistance -Endocrine consult for blood sugar management - appreciate recs -ID consult - Zosyn, micafungin -Nutrition following for optimization -General Surgery consult - colostomy 12/30 Dispo: Continue inpatient care, if drainage persists over the weekend then plan for exploration of wound and wound vac placement in OR on 01/11 Adrienne Zarate MD [id number] * Lexus Shirley, OT - 01/07/2018 11:11 AM CDT Formatting of this note may be different from the original. OCCUPATIONAL THERAPY PROGRESS NOTE Patient Name: Beata Kaiser Room/Bed: [place] [address] Admitting Diagnosis: Pelvic mass [R19.00] Pelvic mass in female Past Medical History: Diagnosis Date Anxiety Back pain Depression DM (diabetes mellitus) (HCC) Hypothyroidism Mobility Progressive Mobility Level: Active transfer to chair Level of Assistance: Assist X2 Assistive Device: Transfer / slide board Time Tolerated: 11-30 minutes Activity Limited By: Patient request to stop Subjective Pertinent Dx per Physician: 52 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 Don't lie flat for extended periods of time. Compression shorts Pain / Complaints: Patient agrees to participate in therapy Pain Location: Left;Hip (phantom limb pain/did not rate) Objective Psychosocial Status: Willing and Cooperative to Participate Persons Present: RehabTechnician;Nursing Staff Home Living Type of Home: House Home Layout: Performs ADL'S on One Level (2 steps to enter) Bathroom Shower / Tub: Tub/Shower Unit Bathroom Toilet: Standard Bathroom Accessibility: Accessible via Walker Home Equipment: Cane Comment: Pt reports she has someone who is giving her a walk in tub and ramps. 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 Pt able to complete supine>sit with contact guard assist for trunk, HOB slightly elevated, increased time to complete. Pt sat edge of bed x6 minutes for grooming task, stand by assist for sitting balance using 1UE and no UE for support to maintain balance. Pt completed slideboard transfer to wheelchair to L with maximum assist x1, and contact guard assist x1. Pt request to return to bed upon immediately transferring to chair. Pt transferred to R with moderate assist x2. R knee blocked throughout transfer to and from chair. Pt completed sit>supine with CGA for RLE. Pt supine at OT departure. Activity Tolerance Endurance: 2/5 Tolerates 10-20 Minutes Exercise w/Multiple Rests Comment: Significant draining with bed mobility and transfers. Cognition Overall Cognitive Status: WFL to Adequately Complete Self Care Tasks Safely Attention: Awake/Alert Assessment Assessment: Decreased ADL Status;Decreased Endurance;Decreased Self-Care Trans; Decreased High-Level ADLs Prognosis: Good;w/Cont OT s/p Acute Discharge Goal Formulation: Patient AM-PAC 6 Clicks Daily Activity Inpatient Putting on and taking off regular lower body clothes?: A Lot Bathing (Including washing, rinsing, drying): A Lot Toileting, which includes using toilet, bedpan, or urinal: Total Putting on and taking off regular upper body clothing: A Little Taking care of personal grooming such as brushing teeth: A Little Eating meals?: A Little Daily Activity Raw Score: 14 Standardized (t-scale) score: 33.39 CMS 0-100% Score: 59.67 CMS G Code Modifier: CK Plan OT Frequency: 5x/week OT Plan for Next Visit: slideboard transfer, dynamic sitting balance sitting EOB ADL Goals Patient Will Perform LE Dressing: w/ Moderate Assist Functional Transfer Goals Pt Will Perform All Functional Transfers: Minimum Assist Pt Will Transfer To Bedside Commode: w/ Moderate Assist Pt Will Transfer To Toilet: w/ Minimum Assist Arm Goals Pt Will Complete Theraband Exer: B UE, 2 Sets, 10 Reps, Level 1 Theraband OT Discharge Recommendations OT Discharge Recommendations: Inpatient Setting, To address deficits, maximize function and improve safety. Equipment Recommendations: [facility] [place] Additional Information: Recommend ongoing assistance for: Transfers, Bed mobility, Dressing, Bathing, Toileting Therapist: Lexus Shirley, OTR/L [id number] Date: 01/07/2018 * Jasper Betts RN - 01/07/2018 9:18 AM CDT Inpatient Pain Management Nurses [facility] - Follow -Up Primary team is responsible for entering orders. Suggested Plan for the Day: Rounded on patient but was receiving a bed bath. Will return upon request. Please call with questions/concerns. Continue current pain regimen other than discontinuing hydromorphone IV, tolerating an oral diet. Anticipated D/C Planning: Continue current pain regimen and taper as able as tolerating and achieving milestones in recovery. S: EMR reviewed. O: Oral morphine equivalent (OME) used over past 24 hours (7:01 AM - 7:00 AM)- ~ 160 mg Current Analgesic Regimen, OME: Used 1 dose of hydromorphone IV 1 mg ~ 20 mg Used 6 doses of oxycodone 20 mg ~ 120 mg Used 1 dose of oxycodone SR 20 mg ~ 20 mg Jasper Betts, MSN, RN- Clinical Nurse Coordinator Pain Management [phone] Team pager [phone] * Fareed Holcomb MD - 01/07/2018 8:10 AM CDT Formatting of this note may be different from the original. Surgical Oncology Daily Progress Note Today's Date: 01/07/2018 Name: Beata Kaiser Admission Date: 12/13/2017 (LOS: 25 days) Assessment: 52 y.o. female 8 Days Post-Op from Procedure(s) (LRB): COLOSTOMY DIVERTING LOOP, EXPLORATORY LAPAROTOMY LYSIS OF ADHESIONS, (N/A) OR date: 12/30/2017 Principal Problem: Pelvic mass Active Problems: Pelvic mass in female Metabolic acidosis Acute blood loss as cause of postoperative anemia Depression Anxiety DM (diabetes mellitus) (HCC) Hypothyroidism Hemorrhagic shock (HCC) Chronic pain Plan: -Good ostomy function, abdominal pain improved with output. -Okay to continue regular diet. -Surgical Oncology will sign off at this time. Please page [phone] if you have any questions regarding the care of this patient. -Disp - Per primary team _ Subjective: No acute events. Left quadrant abdominal pain improved with ostomy output. Tolerating diet. Objective: BP: (106-125)/(63-87) Temp: [36.4 C (97.5 F)-36.7 C (98.1 F)] Pulse: [101-113] Respirations: [16 PER MINUTE-18 PER MINUTE] SpO2: [95 %-98 %] O2 Delivery: None (Room Air) Lab Results Component Value Date/Time HGB 8.1 (L) 01/07/2018301 WBC 8.2 01/07/2018301 ] Lab Results Component Value Date/Time NA 137 01/07/2018301 K 4.3 01/07/2018301 CL 101 01/07/2018301 CO2 30 01/07/2018301 BUN 15 01/07/2018301 CR 0.65 01/07/2018301 ] Physical Exam: GEN: NAD, Alert CARDIO: RRR, well perfused PULM: No respiratory distress ABD: soft, appropriately TTP, Mildly distended, stoma is pink and viable with liquid brown stool in bag. EXT: Orthopedic dressings in place over left incision site. NEURO: Gross motor in UE and LE b/l. Sensory intact. Fareed Holcomb MD Personal Pager: [phone] Team Pager: # [phone] * Indy Isabel MD - 01/06/2018 6:43 PM CDT Formatting of this note may be different from the original. Infectious Diseases Progress Note Today's Date: 01/06/2018 Admission Date: 12/13/2017 Assessment: # Leukocytosis- improved- ? Response to addition of migafungin - Unclear etiology - improved overall since starting micafungin; ? Fluconazole resistant Aracely spp - 01/03 down to 11.8 # GBS bacteremia w sepsis- source suspected left hip wound - Fever and leukocytosis began 12/20/17 - / L lower lobe infiltrate - read as atelectasis - 12/20 C. diff negative - 12/23 Bcx 09/21 set group B streptococcus; source seems most likely intra-pelvic - CT pelvis 12/25: "Ill-defined fluid and air along the anterior margin of the surgical site away from the drain tip. However, no discrete drainable fluid collection is noted." # Candiduria - 12/21/17 UA: wbc 2-10, negative nitrite, 1+ luukocytes, Culture > 100,000 Aracely sp - Sensitivities not done, unsure if fluconazole susceptible; repeat urine culture negative 12/28 but improved with micafungin so is suspicion for fluconazole resistance - Treating given indwelling melchor and inability to remove melchor d/t recent bladder repair - ? 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 Continue Zosyn 2. Continue micafungin 3. Will discuss CT findings w ortho 4. Monitor for abx toxicity 5. Trend temp, WBC - 6. Tentative plan was to continue IV atbx though 01/13 (approx 3 weeks post presentation of sepsis w suspected wound/soft tissue infection occurring on 12/22) - will review this plan w ortho in light of recent CT. Difficult to interpret what degree of changes represent ongoing infection Complexity of medical decision making is high b/c of the multi-system nature of the infectious disease process and concerns about the complexity of the patient illness including the sensitivity of the organisms being treated, the potential for drug toxicity and interactions, concerns about immunologic function, and interplay of other issues. Interval History Afebrile, stable vitals. Reports some pain on R lower side of abd wound. The left posterior wound continues to drain. She had CT today No cough, sob, CP, n/v.. Ostomy working well. ROS otherwise neg CT reviewed by me: report- left hemipelvectomy, edema w/in the operative bed- not changed except sl more gas, more focal gas/fluid alonger anterior/inferior and superior surgical margins. Drain removed. Ostomy w/out fluid collection Antimicrobial Start date End date Erythromycin 12/13 Neomycin 12/13 12/13 Polymyxin B 12/14 12/14 Gentamycin 12/14 12/15 Clindamycin 12/14 12/22 Pip/tazo 12/22 active Fluconazole 12/22 12/30 Vancomycin 12/23 12/27 Micafungin 12/30 active Estimated Creatinine Clearance: 110.1 mL/min (based on SCr of 0.68 mg/dL). Medications Scheduled Meds: acetaminophen (TYLENOL) tablet 1,000 mg 1,000 mg Oral Q8H* buPROPion (WELLBUTRIN) tablet 100 mg 100 mg Oral TID busPIRone (BUSPAR) tablet 15 mg 15 mg Oral BID gabapentin (NEURONTIN) capsule 400 mg 400 mg Oral TID (05-01-17) gabapentin (NEURONTIN) capsule 800 mg 800 mg Oral QHS insulin aspart U-100 (NOVOLOG FLEXPEN) injection PEN 0-14 Units 0-14 Units Subcutaneous 5 X Day insulin aspart U-100 (NOVOLOG FLEXPEN) injection PEN 16 Units 16 Units Subcutaneous TID after meals insulin glargine (LANTUS SOLOSTAR, BASAGLAR) injection PEN 20 Units 20 Units Subcutaneous QHS insulin NPH (HUMULIN N KwikPen) injection PEN 66 Units 66 Units Subcutaneous QHS lactobacillus rhamnosus GG (CULTURELLE) 15 billion cell capsule 1 capsule 1 capsule Oral BID w/meals levothyroxine (SYNTHROID) tablet 175 mcg 175 mcg Oral QDAY before breakfast lidocaine (LIDODERM) 5 % topical patch 2 patch 2 patch Topical QDAY micafungin (MYCAMINE) 100 mg in sodium chloride 0.9% (NS) 100 mL IVPB (MB+) 100 mg Intravenous Q24H* neomycin tablet 500 mg 500 mg Oral Q6H* oxyCODONE SR (OXYCONTIN) tablet 20 mg 20 mg Oral QHS pantoprazole DR (PROTONIX) tablet 40 mg 40 mg Oral QDAY(21) piperacillin/tazobactam (ZOSYN) 4.5 g/100 mL iso-osmotic IVPB 4.5 g Intravenous Q6H* rivaroxaban (XARELTO) tablet 20 mg 20 mg Oral QDAY w/breakfast vitamin A & D topical ointment Topical BID Continuous Infusions: PRN and Respiratory Meds:alum/mag hydroxide/simeth Q6H PRN, calcium carbonate Q4H PRN, diazePAM Q6H PRN, diphenhydrAMINE Q6H PRN OR [DISCONTINUED] diphenhydrAMINE Q6H PRN, HYDROmorphone (DILAUDID) injection Q4H PRN, naloxone PRN, ondansetron (ZOFRAN) IV Q6H PRN, oxyCODONE Q3H PRN, pancrelipase 20,000 Units/ sodium bicarbonate 650 mg(#) PRN (Sharepoint Application 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 Rx), simethicone Q6H PRN Physical Examination Vital Signs: Last Vital Signs: 24 Hour Range BP: 121/70 (01/06 1821) Temp: 36.7 C (98 F) (01/06 1821) Pulse: 108 (01/06 1821) Respirations: 18 PER MINUTE (01/06 1821) SpO2: 97 % (01/06 1821) O2 Delivery: None (Room Air) (01/06 1821) BP: (106-135)/(60-87) Temp: [36.4 C (97.5 F)-37.6 C (99.7 F)] Pulse: [65-113] Respirations: [16 PER MINUTE-18 PER MINUTE] SpO2: [95 %-97 %] O2 Delivery: None (Room Air) General appearance: obese, alert, oriented, HENT: mucus membranes moist, no oral lesions/thrush Eyes: EOMI, normal conj Lungs: no wheezing, rhonchi, rales appreciated anteriorly Heart: Regular rhythm, reg rate, with no murmur, rub, gallop Abdomen: obese, normal garcia sounds, soft, non-tender, non distended Ext: s/p left hemipelvectomy; There are areas of necrosis- along pannus continue to improve. Colostomy w/ soft brown stool in bag, stoma appears normal. Persistent dependent edema/erythema in the mons/vulvar area- waxes and wanes. The right lateral edge of wound seems sl more red, some echymosis Skin: no generalized rashes Psych: flat affect, depressed mood Lines: Indwelling melchor catheter Lab Review Hematology Recent Labs 01/04/18 0245 01/05/18 0304 01/06/18 0252 WBC 10.3 9.7 8.8 HGB 8.6* 8.4* 8.0* HCT 24.9* 24.3* 24.2* PLTCT 531* 527* 545* Chemistry Recent Labs 01/04/18 0245 01/04/18 1155 01/05/18 0304 01/06/18 0252 NA 131* -- 133* 135* K 4.3 -- 4.1 4.2 CL 97* -- 98 99 CO2 29 -- 30 30 BUN 13 -- 13 11 CR 0.64 -- 0.65 0.68 GFR >60 -- >60 >60 GLU 234* -- 291* 192* CA 8.3* -- 8.3* 8.2* ALBUMIN -- 2.2* -- -- Microbiology, Radiology and other Diagnostics Review Microbiology data reviewed. Indy Isabel MD Pager Beeper [phone] * Mark Her - 01/06/2018 4:25 PM CDT //ORTHOTICS/PROSTHETICS Consult Note: NAME: Beata Kaiser ADMISSION DATE: admitted to hospital : 1965 AGE: 52 y.o. ROOM: [place] [id number] DOCTOR: Date of Order: 01/06/18 Date of Service: 01/06/18 Services referred for: Prosthetic Eval and Treat: Hip Program Consultant Description of condition/injury, including services:Amputations Size: 1X Plus Side right Measurements: Area/circumference/Diameter/Length fit to pt (replacement of previous delivery) Functional Goals discussed for device use: Reduce edema Facilitate healing of injury Decrease pain Device is to be ordered na Estimated date of delivery 01/06/18 Functional goals met: Yes The patient states satisfaction with the fit/function of device: Yes Additional supplies provided to the patient: na Patient Education: Written and/or verbal instruction/information provided to Patient Information provided: patient is experienced wearer Patient did tolerate the procedure without incident/problem. Follow-up scheduled: na PLAN: Order completed Mark Her 01/06/2018 * Chari Moon - 01/06/2018 2:20 PM CDT PHYSICAL THERAPY PROGRESS NOTE MOBILITY: Mobility Progressive Mobility Level: Active transfer to chair Level of Assistance: Assist X2 Assistive Device: Transfer / slide board Time Tolerated: 11-30 minutes Activity Limited By: Pain SUBJECTIVE: Subjective Significant hospital events: 52 y/o F with history of left osteosarcoma s/p left hemipelvectomy, cystorrhaphy and bladder neck repair, cystoscopy, and left iliac exposure 12/14/17 Mental / Cognitive Status: Alert;Cooperative Persons Present: Sister;Nursing Staff (Supervising FABRIC PATTERN GRADER) Pain: Patient complains of pain Pain Location: Left;Hip Pain Interventions: Patient pre-medicated;Patient agrees to participate in therapy L LE Precautions: LLE Non-Weight Bearing Comments: Lay on right side as much as possible for edema management per ortho. Don't lie flat for extended periods of time. Compression shorts Ambulation Assist: Independent Mobility in Community without Device Patient Owned Equipment: Crutches Home Situation: Lives with Family Type of Home: House Entry Stairs: 1-2 Stairs In-Home Stairs: No Stairs BED MOBILITY/TRANSFERS: Bed Mobility/Transfers Bed Mobility: Supine to Sit: Moderate Assist;Head of Bed Elevated;Use of Rail; Assist with Trunk Bed Mobility: Sit to Supine: Minimal Assist;HOB Elevated;Assist with R LE Transfer Type: Sliding Board Transfer: Assistance Level: To;Wheelchair;From;Bed;Minimal Assist;of 1st person; Moderate Assist;of 2nd person Transfer: Assistive Device: Sliding Board Transfers: Type Of Assistance: Verbal Cues;For Strength Deficit;For Balance; Knees(s) Blocked Other Transfer Type: Sliding Board Other Transfer: Assistance Level: To;Bed;From;Wheelchair Other Transfer: Assistive Device: Sliding Board Other Transfer: Type Of Assistance: Knees(s) Blocked;Verbal Cues;For Balance; For Strength Deficit End Of Activity Status: In Bed;Nursing Notified Comments: Pt was able to perform slide board transfer with moderate assistance of 1st person and minimal assistance of 2nd person, with the right knee blocked and use of draw sheet to assist pt. EDUCATION: Education Persons Educated: Patient/Family Patient Barriers To Learning: Pain;Anxiety Interventions: Repetition of Instructions Teaching Methods: Verbal Instruction;Demonstration Patient Response: Verbalized Understanding;Return Demonstration Topics: Use of Assistive Device/Orthosis;Mobility Progression Comments: Provided pt with instructions on how to transfer from the bed to wheelchair and back using slide board. ASSESSMENT/PROGRESS: Assessment/Progress Impaired Mobility Due To: Pain;Post Surgical Precautions;Post Surgical Changes; Decreased Activity Tolerance Impaired Strength Due To: Post Surgical Changes;Decreased Activity Tolerance; Deconditioning Assessment/Progress: Should Improve w/ Continued PT Comments: Pt requested to transfer towards left side when performing slide board transfer to/from bed and wheelchair. Pt demonstrated good upper body strength but required assistance of 2 people to help scoot across slide board. AM-PAC 6 Clicks Basic Mobility Inpatient Turning from your back to your side while in a flat bed without using bed rails : A lot Moving from lying on your back to sitting on the side of a flatbed without using bedrails : A Lot Moving to and from a bed to a chair (including a wheelchair): A Lot Standing up from a chair using your arms (e.g. wheelchair, or bedside chair): A Lot To walk in hospital room: Total Climbing 3-5 steps with a railing: Total Raw Score: 10 Standardized (T-scale) Score: 28.13 Basic Mobility CMS 0-100%: 71.92 CMS G Code Modifier for Basic Mobility: CL GOALS: Goals Goal Formulation: With Patient/Family Time For Goal Achievement: 7 days Pt Will Go Supine To/From Sit: w/ Moderate Assist Pt Will Transfer Bed/Chair: w/ Moderate Assist Pt Will Transfer Sit to Stand: w/ Moderate Assist PLAN: Plan Treatment Interventions: Mobility Training Plan Frequency: 5-7 Days per Week Comments: Continue to work on slide board transfers, improve standing tolerance RECOMMENDATIONS: PT Discharge Recommendations PT Discharge Recommendations: Inpatient Setting Equipment Recommendations: Too early to be determined Recommend ongoing assistance for: Bed mobility;Stairs;Ambulation;Transfers PT Plan for Next Visit: Therapist: Chari Moon Date: 01/06/2018 Associated attestation - Cassandra Villatoro - 01/06/2018 4:10 PM CDT I was present and involved in directing the care of the patient throughout the physical therapy session. * Hugh Salinas MD - 01/06/2018 1:35 PM CDT Formatting of this note may be different from the original. General Progress Note Name: Beata Kaiser Today's Date: 01/06/2018 Admission Date: 12/13/2017 LOS: 24 days Assessment/Plan: Principal Problem: Pelvic mass Active Problems: Pelvic mass in female Metabolic acidosis Acute blood loss as cause of postoperative anemia Depression Anxiety DM (diabetes mellitus) (HCC) Hypothyroidism Hemorrhagic shock (HCC) Chronic pain 52 y.o.femalewith Hx of hypothyroidism and non-insulin dependent diabetes mellitus who presented to [facility] on 12/13/17 for scheduled left hemipelvectomy for pelvic chondrosarcoma. Pt underwent open biopsy of left pelvis previously on 11/29. Pt underwent scheduled hemipelvectomy on 12/14/17. Medicine had been following for hyponatremia. Hyponatremia: -Sodium level is stable, would continue to monitor -TPN discontinued, now on tubefeedings + oral intake -Serum cortisol noted @15 a couple of days ago, but at 0430 am; would not recheck -continue current management with 1.5 L free water restriction Diabetes/hyperglycemia: -Endocrinology is directly managing this. She has been transitioned to nocturnal tube feeds. Managing with lantus for basal glucose production, novolog for prandial PO intake and NPH to cover glucose load with TF Sepsis/group B strep bacteremia: -Source is likely from left hip wound -Responding well to antibiotics, currently on Zosyn and micafungin and followed by infectious disease. Sleepiness -Current medication list includes Wellbutrin 100 mg 3 times daily, buspirone 15 mg twice daily, gabapentin 800 mg twice daily, oxycodone 10-20 mg every 3 hours as needed (she received 8 doses of this yesterday), OxyContin 20 mg once daily. In addition she has as needed Valium and as needed Benadryl on her medication record. Gabapentin 800 mg twice a day. She has not received doses of either 1 of these medicines. She may be more alert if this list can be reduced. -Consider decreasing gabapentin to 600 mg twice daily -Consider discontinuation of as needed Valium and Benadryl Normocytic anemia: -Stable hemoglobin over the last 5 days. Medicine consult team will sign off, please call if any questions or new medical problems arise Thank you for the consult. Note: All patient care calls should be directed first to the primary service. If the primary service needs further assistance , the service should page [phone] (24 hours a day/7 days a week) to discuss the case Subjective Beata Kaiser is a 52 y.o. female. Patient states that she slept well overnight, although she did wake up at 3 AM. She reports going to sleep at 7 PM. She does recall some abdominal discomfort shortly after starting tube feedings. The symptom past after receiving simethicone. She states that her phantom limb pain from her left lower extremity has subsided. Medications Scheduled Meds: acetaminophen (TYLENOL) tablet 1,000 mg 1,000 mg Oral Q8H* buPROPion (WELLBUTRIN) tablet 100 mg 100 mg Oral TID busPIRone (BUSPAR) tablet 15 mg 15 mg Oral BID gabapentin (NEURONTIN) capsule 400 mg 400 mg Oral TID (05-01-17) gabapentin (NEURONTIN) capsule 800 mg 800 mg Oral QHS insulin aspart U-100 (NOVOLOG FLEXPEN) injection PEN 0-14 Units 0-14 Units Subcutaneous 5 X Day insulin aspart U-100 (NOVOLOG FLEXPEN) injection PEN 16 Units 16 Units Subcutaneous TID after meals insulin glargine (LANTUS SOLOSTAR, BASAGLAR) injection PEN 20 Units 20 Units Subcutaneous QHS insulin NPH (HUMULIN N KwikPen) injection PEN 66 Units 66 Units Subcutaneous QHS lactobacillus rhamnosus GG (CULTURELLE) 15 billion cell capsule 1 capsule 1 capsule Oral BID w/meals levothyroxine (SYNTHROID) tablet 175 mcg 175 mcg Oral QDAY before breakfast lidocaine (LIDODERM) 5 % topical patch 2 patch 2 patch Topical QDAY micafungin (MYCAMINE) 100 mg in sodium chloride 0.9% (NS) 100 mL IVPB (MB+) 100 mg Intravenous Q24H* neomycin tablet 500 mg 500 mg Oral Q6H* oxyCODONE SR (OXYCONTIN) tablet 20 mg 20 [address] QHS pantop[address]ole DR (PROTONIX) tablet 40 mg 40 mg Oral QDAY(21) piperacillin/tazobactam (ZOSYN) 4.5 g/100 mL iso-osmotic IVPB 4.5 g Intravenous Q6H* rivaroxaban (XARELTO) tablet 20 mg 20 mg Oral QDAY w/breakfast vitamin A & D topical ointment Topical BID Continuous Infusions: PRN and Respiratory Meds:alum/mag hydroxide/simeth Q6H PRN, calcium carbonate Q4H PRN, diazePAM Q6H PRN, diphenhydrAMINE Q6H PRN OR [DISCONTINUED] diphenhydrAMINE Q6H PRN, HYDROmorphone (DILAUDID) injection Q4H PRN, naloxone PRN, ondansetron (ZOFRAN) IV Q6H PRN, oxyCODONE Q3H PRN, pancrelipase 20,000 Units/ sodium bicarbonate 650 mg(#) PRN (Sharepoint Application 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 Rx), simethicone Q6H PRN Review of Systems: gas and bloating in abdomen Objective: Vital Signs: Last Filed Vital Signs: 24 Hour Range BP: 106/63 (01/06 953) Temp: 36.6 C (97.9 F) (01/06 953) Pulse: 101 (01/06 953) Respirations: 16 PER MINUTE (01/06 953) SpO2: 97 % (01/06 953) O2 Delivery: None (Room Air) (01/06 953) BP: (106-135)/(51-71) Temp: [36.5 C (97.7 F)-37.6 C (99.7 F)] Pulse: [65-113] Respirations: [16 PER MINUTE] SpO2: [92 %-98 %] O2 Delivery: None (Room Air) Intensity Pain Scale 0-10 (Pain 1): 3 (01/06/18 0609) Vitals: 12/27/17 0654 12/30/17 0820 01/05/18 0625 Weight: 98.5 kg (217 lb 2.5 oz) 98.5 kg (217 lb 2.5 oz) 103.5 kg (228 lb 2.8 oz ) Intake/Output Summary: (Last 24 hours) Intake/Output Summary (Last 24 hours) at 01/06/18 1335 Last data filed at 01/06/18 0955 Gross per 24 hour Intake 2701 ml Output 3950 ml Net -1249 ml Stool Occurrence: 1 Physical Exam General: Alert, cooperative, no distress, appears stated age Lungs: Clear to auscultation bilaterally Heart: Regular rate and rhythm, S1, S2 normal, no murmur, click rub or gallop Abdomen: colostomy with brown solid stool, surgical incision near ostomy is CDI , left hip without drainage Extremities: RLE with no c/c/e, Lab Review Pertinent labs reviewed Point of Care Testing (Last 24 hours) Glucose: (!) 192 (01/06/18 0252) POC Glucose (Download): 99 (01/06/18 1311) Radiology and other Diagnostics Review: Pertinent radiology reviewed. Hugh Salinas MD Pager [phone] * Emma See, KAYA - 01/06/2018 1:19 PM CDT CLINICAL NUTRITION Clinical Nutrition Follow-Up Summary Nutrition Assessment of Patient: Malnutrition Assessment: Adequately nourished prior to admission Current Oral Intake: Marginally Adequate Estimated Calorie Needs: 1660 (30 kcals/kg per DBW 55.3 kg due to large surgical wound) Estimated Protein Needs: 100-120 (1.5-2.2 g/kg desired wt.) Oral Diet Order: Diabetic 8593-0494 Kcal/day (60 g Carb/meal, 30 g Carb/HS snack ) Oral Supplement: [place] Breakfast Essentials No Sugar Added, Protein Powder, TID EN Intake (calories) Daily Average : 1407 kilocalories (85% via EN only over past 3 d avg.(nocturnal only since 01/04) EN Intake (protein) Daily Average : 72 grams (60-72% via EN only over past 3 day avg.) Current EN Order: Nutren 1.5 @ 75ml/hr x's 12 hrs (9604-7300) + 2 Liquid ProSource/day (At goal provides: 900ml, 1470 kcal (88% est needs), 91 g protein (75-90% est needs), and 684ml free water/day in EN). 30 ml water flush Q 4 hrs to total 864ml water/day. 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 Pt's weight initially went down 28# or 12% s/p removal of leg. Latest weight increased to only 1.3kg below admit wt., likely due to fluid. Pt had been having issues with stool soilage prohibiting wound healing so team proceeded with colostomy placement 12/30. TPN started / concern for optimal nutriton s/p surgery. She received ~ 3 bags total. At this time, pt has order for nocturnal Nutren 1.5 with diabetic diet during day. Her tube feeds had to be turned down to 50ml/hr last night 2/2 pt feeling distended and her abdomen is noted as tender and distended, firm per life science taxonomist. CT completed this morning with no note yet. She had 750 ml ouput via ostomy over past 24 hrs.Per pt and guest, she ate 50% of her breakfast this morning, and her lunch was just arriving as I was talking to her today. I noted she had broccoli, rice, pudding and diet Coke. I discussed with her her high protein needs, and how this tray had minimal protein. She reported she has been drinking 1 CIB shake/day. I discussed her ordering 2 protein sources on each tray (she has been eating 2 meals/day). I also discussed goal of titrating down tube feeds as she eats better, but that it was imperative she get protein sources for meals. Note: NSS signed off to floor RD on 01/03. Recommendation: Continue [id number] Consistent Carb Diet. Please encourage SUGER FREE CARNATION MIXED WITH SKIM MILK AND 2 PROTEIN POWDER (no ice cream 2/2 high blood sugars) between meals (=230 kcal, 25 g protein). Continue current TF order of nocturnal feeds: Nutren 1.5 @ 75ml/hr x's 12 hrs + 2 LIquid ProSource as tolerated. Please consult dietitian if not tolerated or re-consult NSS team if CT shows obstruction or ileus and TPN re-start necessary. Intervention / Plan: Disucssed protein needs. RD to monitor GI status RD to monitor EN intake and tolerance, PO intake and tolerance, as well as wt and labs. Nutrition Diagnosis: Increased nutrient needs, specify: (protein) Etiology: demand for healing Signs & Symptoms: hemipelvectomy, wounds Inadequate oral intake Etiology: marginal appetite, firm and distended abdomen Signs & Symptoms: EMR, pt report Goals: Patient to consume >75% of meals/supplements Time Frame: Prior to Discharge Transition from enteral to oral Time Frame: Prior to Discharge Prevent further skin breakdown Time Frame: Throughout Stay Emma See, KAYA #[id number]. * Kalie Sibley MBBS - 01/06/2018 1:12 PM CDT Formatting of this note may be different from the original. Endocrinology Hospital Follow Up Visit Today's Date: 01/06/2018 Admission Date: 12/13/2017 Assessment: 1. 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 Enteral Nutrition 4. Obesity Class III 5. Hyperlipidemia On lovastatin 6. Chondorsarcoma Pelvis s/p hemipelvectomy Recommendations: Patient with inadequate blood sugar control so we have made the following changes today Increase Novolog to 16 units post meals as appetite improving and with prandial hyperglycemia Increase NPH to 66 units to be given before the starting of the nocturnal Tube feed - please hold if tube feeds are held or planned to be held Continue with Lantus 20 units QHS Continue with MDCF Current TF regimen : Nutren 1.5, goal rate 75ml/hr x 12hr at night Thank you for the consult , we will continue to follow Patient seen and discussed with Dr. Concepcion History of Present Illness Beata Kaiser is a 52 y.o. The patient states her appetite is improving . She denies hypoglycemia. She denies nausea or vomiting. She is having some surgical pain. No other new complaints. Sister at bedside Estimated Creatinine Clearance: 110.1 mL/min (based on SCr of 0.68 mg/dL). Allergies Allergies Allergen Reactions Cephalexin SEE COMMENTS Face gets red, feels really hot, has tolerated penicillin Review of Systems The patient denies headache, vision changes, shortness of air, chest pain, abdominal pain, nausea or vomiting. Medications Scheduled Meds: acetaminophen (TYLENOL) tablet 1,000 mg 1,000 mg Oral Q8H* buPROPion (WELLBUTRIN) tablet 100 mg 100 mg Oral TID busPIRone (BUSPAR) tablet 15 mg 15 mg Oral BID gabapentin (NEURONTIN) capsule 400 mg 400 mg Oral TID (05-01-17) gabapentin (NEURONTIN) capsule 800 mg 800 mg Oral QHS insulin aspart U-100 (NOVOLOG FLEXPEN) injection PEN 0-14 Units 0-14 Units Subcutaneous 5 X Day insulin aspart U-100 (NOVOLOG FLEXPEN) injection PEN 16 Units 16 Units Subcutaneous TID after meals insulin glargine (LANTUS SOLOSTAR, BASAGLAR) injection PEN 20 Units 20 Units Subcutaneous QHS insulin NPH (HUMULIN N KwikPen) injection PEN 66 Units 66 Units Subcutaneous QHS lactobacillus rhamnosus GG (CULTURELLE) 15 billion cell capsule 1 capsule 1 capsule Oral BID w/meals levothyroxine (SYNTHROID) tablet 175 mcg 175 mcg Oral QDAY before breakfast lidocaine (LIDODERM) 5 % topical patch 2 patch 2 patch Topical QDAY micafungin (MYCAMINE) 100 mg in sodium chloride 0.9% (NS) 100 mL IVPB (MB+) 100 mg Intravenous Q24H* neomycin tablet 500 mg 500 mg Oral Q6H* oxyCODONE SR (OXYCONTIN) tablet 20 mg 20 mg Oral QHS pantoprazole DR (PROTONIX) tablet 40 mg 40 mg Oral QDAY(21) piperacillin/tazobactam (ZOSYN) 4.5 g/100 mL iso-osmotic IVPB 4.5 g Intravenous Q6H* rivaroxaban (XARELTO) tablet 20 mg 20 mg Oral QDAY w/breakfast vitamin A & D topical ointment Topical BID Continuous Infusions: PRN and Respiratory Meds:alum/mag hydroxide/simeth Q6H PRN, calcium carbonate Q4H PRN, diazePAM Q6H PRN, diphenhydrAMINE Q6H PRN OR [DISCONTINUED] diphenhydrAMINE Q6H PRN, HYDROmorphone (DILAUDID) injection Q4H PRN, naloxone PRN, ondansetron (ZOFRAN) IV Q6H PRN, oxyCODONE Q3H PRN, pancrelipase 20,000 Units/ sodium bicarbonate 650 mg(#) PRN (Sharepoint Application 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 Rx), simethicone Q6H PRN Physical Examination Vital Signs: Last Vital Signs: 24 Hour Range BP: 106/63 (01/06 953) Temp: 36.6 C (97.9 F) (01/06 953) Pulse: 101 (01/06 953) Respirations: 16 PER MINUTE (01/06 953) SpO2: 97 % (01/06 953) O2 Delivery: None (Room Air) (01/06 953) BP: (106-135)/(51-71) Temp: [36.5 C (97.7 F)-37.6 C (99.7 F)] Pulse: [65-113] Respirations: [16 PER MINUTE] SpO2: [92 %-98 %] O2 Delivery: None (Room Air) General appearance: alert, oriented, NAD, OG + CVS; RRR Resp: breathing comfortably Abd; Colostomy + Ext: s/p left hemipelvectomy Neuro: Alert Recent Labs 01/04/18 2058 01/05/18 0244 01/05/18 0752 01/05/18 1222 01/05/18 1733 01/05/18 2138 01/06/18 0258 01/06/18 0758 GLUPOC 325* 279* 265* 194* 248* 276* 194* 136* Lab Review Point of Care Testing (Last 24 hours) Glucose: (!) 192 (01/06/18 0252) POC Glucose (Download): (!) 136 (01/06/18 0758) Recent Labs 01/04/18 0245 01/04/18 1155 01/05/18 0304 01/06/18 0252 NA 131* -- 133* 135* K 4.3 -- 4.1 4.2 CL 97* -- 98 99 CO2 29 -- 30 30 GAP 5 -- 5 6 BUN 13 -- 13 11 CR 0.64 -- 0.65 0.68 GLU 234* -- 291* 192* CA 8.3* -- 8.3* 8.2* ALBUMIN -- 2.2* -- -- Recent Labs 01/04/18 0245 01/05/18 0304 01/06/18 0252 WBC 10.3 9.7 8.8 HGB 8.6* 8.4* 8.0* HCT 24.9* 24.3* 24.2* PLTCT 531* 527* 545* Estimated Creatinine Clearance: 110.1 mL/min (based on SCr of 0.68 mg/dL). Vitals: 12/27/17 0654 12/30/17 0820 01/05/18 0625 Weight: 98.5 kg (217 lb 2.5 oz) 98.5 kg (217 lb 2.5 oz) 103.5 kg (228 lb 2.8 oz ) Thyroid Studies Lab Results Component Value Date/Time TSH 12.590 (H) 01/02/2018 09:45 AM No results found for: FREET3, [id number], THYBINDGLB Pertinent radiology images viewed. RAMIREZ Soto 01/06/2018 Endocrine Associated attestation - Serenity Concepcion MD - 01/06/2018 3:17 PM CDT Formatting of this note may be different from the original. ATTESTATION I personally performed the banuelos portions of the E/M visit, discussed case with resident and concur with resident documentation of history, physical exam, assessment, and treatment plan unless otherwise noted. Staff name: Serenity Concepcion MD Date: 01/06/2018 * Lexus Shirley, OT - 01/06/2018 11:20 AM CDT Formatting of this note may be different from the original. OCCUPATIONAL THERAPY RE-ASSESSMENT NOTE Patient Name: Beata Kaiser Room/Bed: [place] [address] Admitting Diagnosis: Pelvic mass [R19.00] Pelvic mass in female Past Medical History: Diagnosis Date Anxiety Back pain Depression DM (diabetes mellitus) (HCC) Hypothyroidism Mobility Progressive Mobility Level: Sit on edge of bed Level of Assistance: Assist X1 Assistive Device: None Time Tolerated: 11-30 minutes Activity Limited By: (transport arrived) Subjective Pertinent Dx per Physician: 52 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 Don't lie flat for extended periods of time. Compression shorts Pain / Complaints: Patient agrees to participate in therapy Comments: Patient declined donning compression shorts or attempting slideboard transfer this date. Objective Psychosocial Status: Willing and Cooperative to Participate Persons Present: RehabTechnician;Nursing Staff (transport) Home Living Type of Home: House Home Layout: Performs ADL'S on One Level (2 steps to enter) Bathroom Shower / Tub: Tub/Shower Unit Bathroom Toilet: Standard Bathroom Accessibility: Accessible via Walker Home Equipment: Cane Comment: Pt reports she has someone who is giving her a walk in tub and ramps. 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 Pt able to complete bed mobility using bed rails and increased time, minimal assist for trunk supine>sit. Pt sat edge of bed x5 minutes with stand by assist, R foot on floor. Pt able to weight shift and scoot to R 2 times (2 inches in total). Transport arrived. Patient returned to supine. Pt assisted in rolling to R and L to change linens. Pt supine at OT departure. Activity Tolerance Endurance: 2/5 Tolerates 10-20 Minutes Exercise w/Multiple Rests Comment: Sitting balance: SBA static and dynamic this date. Cognition Overall Cognitive Status: WFL to Adequately Complete Self Care Tasks Safely Attention: Somnolent UE AROM Coordination: Adequate to Complete ADLs Grasp: Bilateral Grasp Functional for Activity Comment: BUE AROM WFL Sensory Overall Sensory: Pt Perceives Pressure in Both UEs in Gross Exam UE Strength / Tone Overall Strength / Tone: WFL Able to Perform ADL Tasks;Right;Left;4-/5 Education Persons Educated: Patient Barriers To Learning: None Noted Teaching Methods: Verbal Instruction;Demonstration Patient Response: Verbalized and Demo Understanding Topics: Role of OT, Goals for Therapy;ADL Compensatory Techniques (slideboard transfer education) Goal Formulation: With Patient Assessment Assessment: Decreased ADL Status;Decreased Endurance;Decreased Self-Care Trans; Decreased High-Level ADLs Prognosis: Good;w/Cont OT s/p Acute Discharge Goal Formulation: Patient AM-PAC 6 Clicks Daily Activity Inpatient Putting on and taking off regular lower body clothes?: A Lot Bathing (Including washing, rinsing, drying): A Lot Toileting, which includes using toilet, bedpan, or urinal: Total Putting on and taking off regular upper body clothing: A Little Taking care of personal grooming such as brushing teeth: A Little Eating meals?: A Little Daily Activity Raw Score: 14 Standardized (t-scale) score: 33.39 CMS 0-100% Score: 59.67 CMS G Code Modifier: CK Plan OT Frequency: 5x/week OT Plan for Next Visit: dynamic sitting balance, UE strengthening, attempt slideboard transfer ADL Goals Patient Will Perform LE Dressing: w/ Moderate Assist Patient Will Perform Toileting: w/ Moderate Assist;w/ Bedside Commode; Discontinued (Comment) (due to melchor and ostomy) Functional Transfer Goals Pt Will Perform All Functional Transfers: Minimum Assist Pt Will Transfer To Bedside Commode: w/ Moderate Assist Pt Will Transfer To Toilet: w/ Minimum Assist Arm Goals Pt Will Complete Theraband Exer: B UE, 2 Sets, 10 Reps, Level 1 Theraband OT Discharge Recommendations OT Discharge Recommendations: Inpatient Setting, To address deficits, maximize function and improve safety. Equipment Recommendations: [facility] [place] Additional Information: Recommend ongoing assistance for: Dressing, Bathing, Toileting, Transfers Therapist: Lexus Shirley, [place] [id number] Date: 01/06/2018 * Adrienne Zarate MD - 01/06/2018 8:23 AM CDT Formatting of this note may be different from the original. Subjective: No acute events overnight. Pain better controlled with long acting oxycodone. Continues to have indigestion and abdominal pain. Objective: Blood pressure 135/71, pulse 89, temperature 36.5 C (97.7 F), height 162.6 cm (64"), weight 103.5 kg (228 lb 2.8 oz), SpO2 96 %. General: AAOx3, NAD Cardiac: RRR Respirations: Unlabored Abdomen: soft, nd, induration about the distal pannus around wounds Extremities: LLE hemipelvectomy, dressings saturated posteriorly. multiple wounds in different stages of healing about the incision. No results for input(s): PTT, INR in the last 72 hours. CBC w/Diff Lab Results Component Value Date/Time WBC 8.8 01/06/2018 02:52 AM HGB 8.0 (L) 01/06/2018 02:52 AM HCT 24.2 (L) 01/06/2018 02:52 AM PLTCT 545 (H) 01/06/2018 02:52 AM Basic Metabolic Profile Lab Results Component Value Date/Time NA 135 (L) 01/06/2018 02:52 AM K 4.2 01/06/2018 02:52 AM CL 99 01/06/2018 02:52 AM CO2 30 01/06/2018 02:52 AM GAP 6 01/06/2018 02:52 AM Lab Results Component Value Date/Time BUN 11 01/06/2018 02:52 AM CR 0.68 01/06/2018 02:52 AM GLU 192 (H) 01/06/2018 02:52 AM A/P: 52 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 -Xarelto for DVT -Please do not leave flat for extended periods of time, patient to lay onto her right side as much as possible -Acute blood loss anemia - Hgb 8.0, will continue to monitor -Rehab consult- appreciate recs -Strongly recommend patient be discharged to IRF instead of SNF, would prefer [facility] -Psych, HUMAN RESOURCES RECEPTIONIST psych and psychology consults for coping, depression - appreciate assistance -Endocrine consult for blood sugar management - appreciate recs -ID consult - Zosyn, micafungin -Nutrition following for optimization -General Surgery consult - colostomy 12/30 Dispo: Continue inpatient care Adrienne Zarate MD [id number] * Jami Edwards, RN - 01/05/2018 10:30 PM CDT 5 - Pt requesting to have tube feeding paused, stating it's causing her extreme abdominal discomfort and bloating. 2224 - Tube feedings re-started at lower rate (50 ml/hr) due to intolerance of previous rate (75 ml/hr). Will continue to monitor. * Nneka Garsia RN - 01/05/2018 3:41 PM CDT Wound Ostomy Note NAME:Beata Kaiser :1965 AGE: 52 y.o. ADMISSION DATE: 12/13/2017 DAYS ADMITTED: LOS: 23 days Reason for Consult/Visit: wound VAC Assessment/Plan: Principal Problem: Pelvic mass Active Problems: Pelvic mass in female Metabolic acidosis Acute blood loss as cause of postoperative anemia Depression Anxiety DM (diabetes mellitus) (HCC) Hypothyroidism Hemorrhagic shock (HCC) Chronic pain Spoke to ortho resident Dr Welch about us giving recommendations for possible incision vac over left hip. Went to assess wound and area appears moist and with some maceration around distal/posterior wound. Ceci in place. Some areas of necrotic tissue around the ceci and larger areas of dry scabs noted on lower area. At this time I do not think that an incision vac is the right treatment for here. May need to have aquacel AG to the posterior incision. Continue with A and D ointment to the dry scab areas to help soften the scab. Thank you Opal Garsia RN, BSN Wound /Ostomy Team Pager [phone] After Hours Wound/Ostomy team pager [phone] * Kalie Sibley MBBS - 01/05/2018 3:01 PM CDT Formatting of this note may be different from the original. Endocrinology Hospital Follow Up Visit Today's Date: 01/05/2018 Admission Date: 12/13/2017 Assessment: 1. 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 Enteral Nutrition 4. Obesity Class III 5. Hyperlipidemia On lovastatin 6. Chondorsarcoma Pelvis s/p hemipelvectomy Recommendations: Patient with inadequate blood sugar control so we have made the following changes today Increase Novolog to 12 units post meals as appetite improved Increase NPH to 60 units to be given before the starting of the nocturnal Tube feed - please hold if tube feeds are held or planned to be held Continue with Lantus 20 units QHS Continue with MDCF Current TF regimen : Nutren 1.5, goal rate 75ml/hr x 12hr at night Thank you for the consult , we will continue to follow Patient seen and discussed with Dr. Concepcion History of Present Illness Beata Kaiser is a 52 y.o. The patient states her appetite is improving . She denies hypoglycemia. She denies nausea or vomiting. She is having some surgical pain. No other new complaints. Doing PT this morning Estimated Creatinine Clearance: 110.1 mL/min (based on SCr of 0.65 mg/dL). Allergies Allergies Allergen Reactions Cephalexin SEE COMMENTS Face gets red, feels really hot, has tolerated penicillin Review of Systems The patient denies headache, vision changes, shortness of air, chest pain, abdominal pain, nausea or vomiting. Medications Scheduled Meds: acetaminophen (TYLENOL) tablet 1,000 mg 1,000 mg Oral Q8H* buPROPion (WELLBUTRIN) tablet 100 mg 100 mg Oral TID busPIRone (BUSPAR) tablet 15 mg 15 mg Oral BID gabapentin (NEURONTIN) capsule 800 mg 800 mg Oral Q12H insulin aspart U-100 (NOVOLOG FLEXPEN) injection PEN 0-14 Units 0-14 Units Subcutaneous 5 X Day insulin aspart U-100 (NOVOLOG FLEXPEN) injection PEN 12 Units 12 Units Subcutaneous TID after meals insulin glargine (LANTUS SOLOSTAR, BASAGLAR) injection PEN 20 Units 20 Units Subcutaneous QHS insulin NPH (HUMULIN N KwikPen) injection PEN 60 Units 60 Units Subcutaneous QHS lactobacillus rhamnosus GG (CULTURELLE) 15 billion cell capsule 1 capsule 1 capsule Oral BID w/meals levothyroxine (SYNTHROID) tablet 175 mcg 175 mcg Oral QDAY before breakfast lidocaine (LIDODERM) 5 % topical patch 2 patch 2 patch Topical QDAY micafungin (MYCAMINE) 100 mg in sodium chloride 0.9% (NS) 100 mL IVPB (MB+) 100 mg Intravenous Q24H* neomycin tablet 500 mg 500 mg Oral Q6H* oxyCODONE SR (OXYCONTIN) tablet 20 mg 20 mg Oral QHS pantoprazole DR (PROTONIX) tablet 40 mg 40 mg Oral QDAY(21) piperacillin/tazobactam (ZOSYN) 4.5 g/100 mL iso-osmotic IVPB 4.5 g Intravenous Q6H* rivaroxaban (XARELTO) tablet 20 mg 20 mg Oral QDAY w/breakfast vitamin A & D topical ointment Topical BID Continuous Infusions: PRN and Respiratory Meds:alum/mag hydroxide/simeth Q6H PRN, calcium carbonate Q4H PRN, diazePAM Q6H PRN, diphenhydrAMINE Q6H PRN OR [DISCONTINUED] diphenhydrAMINE Q6H PRN, HYDROmorphone (DILAUDID) injection Q4H PRN, naloxone PRN, ondansetron (ZOFRAN) IV Q6H PRN, oxyCODONE Q3H PRN, pancrelipase 20,000 Units/ sodium bicarbonate 650 mg(#) PRN (Sharepoint Application 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 Rx), simethicone Q6H PRN Physical Examination Vital Signs: Last Vital Signs: 24 Hour Range BP: 110/64 (01/06 932) Temp: 36.6 C (97.9 F) (01/06 932) Pulse: 103 (01/06 932) Respirations: 16 PER MINUTE (01/06 932) SpO2: 97 % (01/06 932) O2 Delivery: None (Room Air) (01/06 932) BP: (110-144)/(64-80) Temp: [36.5 C (97.7 F)-36.7 C (98 F)] Pulse: [98-112] Respirations: [16 PER MINUTE-17 PER MINUTE] SpO2: [94 %-97 %] O2 Delivery: None (Room Air) General appearance: alert, oriented, NAD, OG + CVS; RRR Resp: breathing comfortably Abd; Colostomy + Ext: s/p left hemipelvectomy Neuro: Alert Recent Labs 01/03/18 2021 01/04/18 0239 01/04/18 0750 01/04/18 1522 01/04/18 2058 01/05/18 0244 01/05/18 0752 01/05/18 1222 GLUPOC 255* 208* 233* 278* 325* 279* 265* 194* Lab Review Point of Care Testing (Last 24 hours) Glucose: (!) 291 (01/05/18 0304) POC Glucose (Download): (!) 194 (01/05/18 1222) Recent Labs 01/03/18 0510 01/04/18 0245 01/04/18 1155 01/05/18 0304 NA 131* 131* -- 133* K 4.3 4.3 -- 4.1 CL 98 97* -- 98 CO2 28 29 -- 30 GAP 5 5 -- 5 BUN 15 13 -- 13 CR 0.64 0.64 -- 0.65 GLU 180* 234* -- 291* CA 8.7 8.3* -- 8.3* ALBUMIN -- -- 2.2* -- MG 1.8 -- -- -- PO4 2.2 -- -- -- Recent Labs 01/03/18 0510 01/04/18 0245 01/05/18 0304 WBC 11.8* 10.3 9.7 HGB 8.5* 8.6* 8.4* HCT 25.0* 24.9* 24.3* PLTCT 524* 531* 527* Estimated Creatinine Clearance: 110.1 mL/min (based on SCr of 0.65 mg/dL). Vitals: 12/27/17 0654 12/30/17 0820 01/05/18 0625 Weight: 98.5 kg (217 lb 2.5 oz) 98.5 kg (217 lb 2.5 oz) 103.5 kg (228 lb 2.8 oz ) Thyroid Studies Lab Results Component Value Date/Time TSH 12.590 (H) 01/02/2018 09:45 AM No results found for: FREET3, [id number], THYBINDGLB Pertinent radiology images viewed. RAMIREZ Soto 01/05/2018 Endocrine Associated attestation - Serenity Concepcion MD - 01/05/2018 8:00 PM CDT Formatting of this note may be different from the original. ATTESTATION I personally performed the banuelos portions of the E/M visit, discussed case with resident and concur with resident documentation of history, physical exam, assessment, and treatment plan unless otherwise noted. With Novolog 12 + CF at noon, FSBS 248mg/dL prior to dinner. Thus, will increase prandial insulin to 16 units SQ TID with meals. Staff name: Serenity Concepcion MD Date: 01/05/2018 * Chari Moon - 01/05/2018 1:53 PM CDT PHYSICAL THERAPY PROGRESS NOTE MOBILITY: Mobility Progressive Mobility Level: Sit on edge of bed Level of Assistance: Assist X1 Assistive Device: None Time Tolerated: 11-30 minutes Activity Limited By: Fatigue;Pain SUBJECTIVE: Subjective Significant hospital events: 52 y/o F with history of left osteosarcoma s/p left hemipelvectomy, cystorrhaphy and bladder neck repair, cystoscopy, and left iliac exposure 12/14/17 Mental / Cognitive Status: Alert;Cooperative;Oriented Persons Present: Sister (Supervising FABRIC PATTERN GRADER, Wound team staff at beginning of session) Pain: Patient complains of pain Pain Location: Left;Hip Pain Description: Sharp Pain Interventions: Patient agrees to participate in therapy;Nursing staff notified of patient's pain level;Nurse provides pain meds L LE Precautions: LLE Non-Weight Bearing Comments: Lay on right side as much as possible for edema management per ortho. Don't lie flat for extended periods of time. Compression shorts Ambulation Assist: Independent Mobility in Community without Device Patient Owned Equipment: Crutches Home Situation: Lives with Family Type of Home: House Entry Stairs: 1-2 Stairs In-Home Stairs: No Stairs BED MOBILITY/TRANSFERS: Bed Mobility/Transfers Bed Mobility: Supine to Sit: Moderate Assist;Head of Bed Elevated;Use of Rail; Assist with Trunk;Assist with R LE Bed Mobility: Sit to Supine: Minimal Assist x2;HOB Elevated;Use of Rail;Assist with R LE and Trunk End Of Activity Status: In Bed BALANCE: Balance Sitting Balance: Dynamic Sitting Balance;2 UE Support;Standby Assist Comments: Pt performed anterior weight shifting while sitting at the edge of the bed in order to prepare for standing in future sessions. Pt also performed dynamic reaching forward, to the anterior right with left hand, and to the anterior left with right hand. ACTIVITY/EXERCISE: Activity / Exercise Sit Edge Of Bed: 15 minutes Sit Edge Of Bed Assist: Stand By Assist ASSESSMENT/PROGRESS: Assessment/Progress Impaired Mobility Due To: Pain;Post Surgical Precautions;Post Surgical Changes; Decreased Activity Tolerance Impaired Strength Due To: Post Surgical Changes;Decreased Activity Tolerance; Deconditioning Assessment/Progress: Should Improve w/ Continued PT Comments: Pt was able to weight shift onto left hip when reaching to anterior left with right hand. She demonstrated no signs of increased pain or losses of balance. Bed height was increased slightly to improve weight bearing on R LE during anterior weight shift for progession into standing. AM-PAC 6 Clicks Basic Mobility Inpatient Turning from your back to your side while in a flat bed without using bed rails : A lot Moving from lying on your back to sitting on the side of a flatbed without using bedrails : A Lot Moving to and from a bed to a chair (including a wheelchair): A Lot Standing up from a chair using your arms (e.g. wheelchair, or bedside chair): A Lot To walk in hospital room: Total Climbing 3-5 steps with a railing: Total Raw Score: 10 Standardized (T-scale) Score: 28.13 Basic Mobility CMS 0-100%: 71.92 CMS G Code Modifier for Basic Mobility: CL GOALS: Goals Goal Formulation: With Patient/Family Time For Goal Achievement: 7 days Pt Will Go Supine To/From Sit: w/ Moderate Assist Pt Will Transfer Bed/Chair: w/ Moderate Assist Pt Will Transfer Sit to Stand: w/ Moderate Assist PLAN: Plan Treatment Interventions: Mobility Training Plan Frequency: 5-7 Days per Week Comments: Improve standing tolerance, initiate slide board transfers to wheel chair as able. RECOMMENDATIONS: PT Discharge Recommendations PT Discharge Recommendations: Inpatient Setting Equipment Recommendations: Too early to be determined Recommend ongoing assistance for: In and out of house;Transfers;Bed mobility; Ambulation;Stairs Therapist: Chari Moon Date: 01/05/2018 Associated attestation - Cassandra Villatoro - 01/05/2018 3:56 PM CDT I was present and involved in directing the care of the patient throughout the physical therapy session. * Jami Dejesus RN - 01/05/2018 1:26 PM CDT Patient complaining of increased phantom pain in her left leg, called the on- call MD, Dr. Burt to discuss changing her gabapentin regimen. No new orders at time, Dr. Burt will assess when he returns from operating room. 1605: Dr. Burt on floor, orders given to change gabapentin TID 400mg and 800mg HS. See eMAR for details. Will continue to monitor. * Hugh Salinas MD - 01/05/2018 11:42 AM CDT Formatting of this note may be different from the original. General Progress Note Name: Beata Kaiser Today's Date: 01/05/2018 Admission Date: 12/13/2017 LOS: 23 days Assessment/Plan: Principal Problem: Pelvic mass Active Problems: Pelvic mass in female Metabolic acidosis Acute blood loss as cause of postoperative anemia Depression Anxiety DM (diabetes mellitus) (HCC) Hypothyroidism Hemorrhagic shock (HCC) Chronic pain 52 y.o.femalewith Hx of hypothyroidism and non-insulin dependent diabetes mellitus who presented to [facility] on 12/13/17 for scheduled left hemipelvectomy for pelvic chondrosarcoma. Pt underwent open biopsy of left pelvis previously on 11/29. Pt underwent scheduled hemipelvectomy on 12/14/17. Medicine had been following for hyponatremia. Hyponatremia: -Sodium level is improving, would continue to monitor -TPN discontinued, now on tubefeedings + oral intake -Serum cortisol noted @15 a couple of days ago, but at 0430 am -We will continue current management with 1.5 L free water restriction Diabetes/hyperglycemia: -Endocrinology is directly managing this. She has been transitioned to nocturnal tube feeds. Sepsis/group B strep bacteremia: -Source is likely from left hip wound -Responding well to antibiotics, currently on Zosyn and micafungin and followed by infectious disease. Sleepiness -Current medication list includes Wellbutrin 100 mg 3 times daily, buspirone 15 mg twice daily, gabapentin 800 mg twice daily, oxycodone 10-20 mg every 3 hours as needed (she received 8 doses of this yesterday), OxyContin 20 mg once daily. In addition she has as needed Valium and as needed Benadryl on her medication record. Gabapentin 800 mg twice a day. She has not received doses of either 1 of these medicines. She may be more alert if this list can be reduced. -Consider decreasing gabapentin to 600 mg twice daily -Consider discontinuation of as needed Valium and Benadryl Normocytic anemia: -Stable hemoglobin over the last 5 days. Medicine consult team will continue to follow Thank you for the consult. Note: All patient care calls should be directed first to the primary service. If the primary service needs further assistance , the service should page [phone] (24 hours a day/7 days a week) to discuss the case Subjective Beata Kaiser is a 52 y.o. female. Patient states that she has had some left sided crampy pain in the flank. It does improve with passing gas. She is otherwise feeling well, although she states that she is exhausted from physical therapy this morning. She denies pain. Medications Scheduled Meds: acetaminophen (TYLENOL) tablet 1,000 mg 1,000 mg Oral Q8H* buPROPion (WELLBUTRIN) tablet 100 mg 100 mg Oral TID busPIRone (BUSPAR) tablet 15 mg 15 mg Oral BID gabapentin (NEURONTIN) capsule 800 mg 800 mg Oral Q12H insulin aspart U-100 (NOVOLOG FLEXPEN) injection PEN 0-14 Units 0-14 Units Subcutaneous 5 X Day insulin aspart U-100 (NOVOLOG FLEXPEN) injection PEN 12 Units 12 Units Subcutaneous TID after meals insulin glargine (LANTUS SOLOSTAR, BASAGLAR) injection PEN 20 Units 20 Units Subcutaneous QHS insulin NPH (HUMULIN N KwikPen) injection PEN 60 Units 60 Units Subcutaneous QHS lactobacillus rhamnosus GG (CULTURELLE) 15 billion cell capsule 1 capsule 1 capsule Oral BID w/meals levothyroxine (SYNTHROID) tablet 175 mcg 175 mcg Oral QDAY before breakfast lidocaine (LIDODERM) 5 % topical patch 2 patch 2 patch Topical QDAY micafungin (MYCAMINE) 100 mg in sodium chloride 0.9% (NS) 100 mL IVPB (MB+) 100 mg Intravenous Q24H* neomycin tablet 500 mg 500 mg Oral Q6H* oxyCODONE SR (OXYCONTIN) tablet 20 mg 20 mg Oral QHS pantoprazole DR (PROTONIX) tablet 40 mg 40 mg Oral QDAY(21) piperacillin/tazobactam (ZOSYN) 4.5 g/100 mL iso-osmotic IVPB 4.5 g Intravenous Q6H* rivaroxaban (XARELTO) tablet 20 mg 20 mg Oral QDAY w/breakfast vitamin A & D topical ointment Topical BID Continuous Infusions: PRN and Respiratory Meds:alum/mag hydroxide/simeth Q6H PRN, calcium carbonate Q4H PRN, diazePAM Q6H PRN, diphenhydrAMINE Q6H PRN OR [DISCONTINUED] diphenhydrAMINE Q6H PRN, HYDROmorphone (DILAUDID) injection Q4H PRN, naloxone PRN, ondansetron (ZOFRAN) IV Q6H PRN, oxyCODONE Q3H PRN, pancrelipase 20,000 Units/ sodium bicarbonate 650 mg(#) PRN (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 Application 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 [employer]) Review of Systems: A 14 point review of systems was negative except for: sleepiness Objective: Vital Signs: Last Filed Vital Signs: 24 Hour Range BP: 110/64 (01/06 932) Temp: 36.6 C (97.9 F) (01/06 932) Pulse: 103 (01/06 932) Respirations: 16 PER MINUTE (01/06 932) SpO2: 97 % (01/06 932) O2 Delivery: None (Room Air) (01/06 932) BP: (110-144)/(64-80) Temp: [36.5 C (97.7 F)-37.6 C (99.6 F)] Pulse: [98-112] Respirations: [16 PER MINUTE-17 PER MINUTE] SpO2: [93 %-97 %] O2 Delivery: None (Room Air) Intensity Pain Scale 0-10 (Pain 1): 5 (01/05/18 08) Vitals: 12/27/17 0654 12/30/17 0820 01/05/18 0625 Weight: 98.5 kg (217 lb 2.5 oz) 98.5 kg (217 lb 2.5 oz) 103.5 kg (228 lb 2.8 oz ) Intake/Output Summary: (Last 24 hours) Intake/Output Summary (Last 24 hours) at 01/05/18 1143 Last data filed at 01/05/18 0933 Gross per 24 hour Intake 2706 ml Output 3550 ml Net -844 ml Stool Occurrence: 1 Physical Exam General: sleepy but easily arousable middle aged female in NAD, oriented x3 Lungs: Clear to auscultation bilaterally Heart: Regular rate and rhythm, S1, S2 normal, no murmur, click rub or gallop Abdomen: obese abdomen, bs+, no hsm, no ttp, low midline ostomy with brown stool output Extremities: RLE with no c/c/e, left hip bandaged with clean dry bandage Lab Review Pertinent labs reviewed Point of Care Testing (Last 24 hours) Glucose: (!) 291 (01/05/18 0304) POC Glucose (Download): (!) 265 (01/05/18 3125) Radiology and other Diagnostics Review: Pertinent radiology reviewed. Hugh Salinas MD Pager [phone] * Herminia Gant OTA - 01/05/2018 11:14 AM CDT OCCUPATIONAL THERAPY PROGRESS NOTE Mobility Progressive Mobility Level: Sit on edge of bed Level of Assistance: Assist X1 Assistive Device: None Time Tolerated: 11-30 minutes Activity Limited By: No limitations Subjective Pertinent Dx per Physician: 52 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 Don't lie flat for extended periods of time. Compression shorts Pain / Complaints: Patient premedicated Comments: Spoke to wound team, Nani and she cleared slide board transfers with wound and felt compression shorts would actually help with any shearing and swelling. Spoke to Dr. Luther and she states she wants the compression shorts and should be wearing at all times. One pair of shorts found and notifed orthotics that they did not deliver 2 shorts. They will make another and send another. Objective Psychosocial Status: Willing and Cooperative to Participate Persons Present: Sister ADL's Where Assessed: Edge of Bed Eating Assist: Independent (supplemental feeds. ) Grooming Assist: Stand By Assist Grooming Deficits: Setup;Brushing Hair LE Dressing Assist: Maximum Assist LE Dressing Deficits: (compression shorts in bed level) Toileting Assist: Maximum Assist (ostomy) Functional Transfer Assist: Moderate Assist (supine><EOB. Uses trapeze to assist with shifting in room) Comment: Pt performed UE theraband exercises on EOB for 10 reps with SBA for dynamic sitting balance. Pt worked on scooting along EOB and does better towards L side. Donned compression shorts with rn assist. in supine. Activity Tolerance Sitting Balance: 3+/5 Sits w/o UE Support for 30 Seconds or Greater Cognition Overall Cognitive Status: WFL to Adequately Complete Self Care Tasks Safely UE Strength / Tone Overall Strength / Tone: 4-/5 Plan Treatment Interventions: ADL Retraining;Functional Transfer Training;UE Strengthing/ROM Functional Transfer Goals Pt Will Transfer To Bedside Commode: w/ Moderate Assist Pt Will Transfer To Toilet: w/ Minimum Assist OT Discharge Recommendations OT Discharge Recommendations: Inpatient Setting Equipment Recommendations: Too early to be determined Additional Information: Next treatement: slide board transfers Therapist: HUYEN Schmidt Date: 01/05/2018 * Colton Welch - 01/05/2018 10:39 AM CDT Formatting of this note may be different from the original. Subjective: No acute events overnight. Pain well-controlled. Bright this morning. Mild abdominal pain. Objective: Blood pressure 110/64, pulse 103, temperature 36.6 C (97.9 F), height 162.6 cm (64"), weight 103.5 kg (228 lb 2.8 oz), SpO2 97 %. General: AAOx3, NAD Cardiac: Tachycardic Respirations: Unlabored Extremities: LLE hemipelvectomy, dressings saturated. multiple wounds in different stages of healing about the incision. No results for input(s): PTT, INR in the last 72 hours. CBC w/Diff Lab Results Component Value Date/Time WBC 9.7 01/05/2018 03:04 AM HGB 8.4 (L) 01/05/2018 03:04 AM HCT 24.3 (L) 01/05/2018 03:04 AM PLTCT 527 (H) 01/05/2018 03:04 AM Basic Metabolic Profile Lab Results Component Value Date/Time NA 133 (L) 01/05/2018 03:04 AM K 4.1 01/05/2018 03:04 AM CL 98 01/05/2018 03:04 AM CO2 30 01/05/2018 03:04 AM GAP 5 01/05/2018 03:04 AM Lab Results Component Value Date/Time BUN 13 01/05/2018 03:04 AM CR 0.65 01/05/2018 03:04 AM GLU 291 (H) 01/05/2018 03:04 AM A/P: 52 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 -PT/OT -Diet: Diabetic diet -Melchor catheter x4 wks minimum -Maintain dressings, ortho to manage - reinforce as needed. Wound team to evaluate for possible incisional wound vac. -Orals for pain control, gabapentin - Nursing pain management consult. Added long acting and modified tam. -Xarelto for DVT -Please do not leave flat for extended periods of time, patient to lay onto her right side as much as possible -Acute blood loss anemia - Hgb 8.4 today -Rehab consult- appreciate recs -Strongly recommend patient be discharged to IRF instead of SNF, would prefer [facility] -Psych, [employer] RECEPTION[employer] psych and psychology consults for coping, depression - appreciate assistance -Endocrine consult for blood sugar management - appreciate recs -ID consult - Zosyn, micafungin -Nutrition following for optimization - TPN (continue for now), tube feeds switched to nocturnal. - Prealbumin 18 and albumin 2.2 -General Surgery consult - colostomy 12/30 Dispo: Continue inpatient care Rebekah [phone] * Jasper Btets RN - 01/05/2018 9:45 AM CDT Inpatient Pain Management Nurses - [facility] - Follow -Up Discussed patient with Nallely GRACE. Primary team is responsible for entering orders. Suggested Plan for the Day: Continue current pain regimen. Of note gabapentin was changed from 600 mg q6 hours to 800 mg q 12 hours. Suggestions was every 6 hours [phone]. Will continue with new dose today and assess efficacy tomorrow. Patient was not aware she received oxycodone SR last night so continued to attempt to stay on top of oxycodone IR instead of sleeping. Consider not disturbing (bundling care) on patient at night time to promote sleep and healing. Goal is to have better sustained analgesia so that oxycodone IR can begin to taper. Anticipated D/C Planning: Too early to determine. S: Patient's current pain intensity: moderate Clinically Aligned Pain Assessment Comfort: Comfortably manageable Change in pain: Getting better Pain control: Partially effective Function: Can do most things, but pain gets in the way of some things Sleep: Awake with occasional pain O: Oral morphine equivalent (OME) used over past 24 hours (7:01 AM - 7:00 AM)- ~ 180 mg Current Analgesic Regimen, OME: Used 8 doses of oxycodone 20 mg ~ 160 mg Used 1 dose of oxycodone SR 20 mg ~ 20 mg Please call with questions/concerns. Jasper Betts, MSN, RN- Clinical Nurse Coordinator Pain Management [phone] Team pager [phone] * Indy Isabel MD - 01/05/2018 7:01 AM CDT Formatting of this note may be different from the original. Infectious Diseases Progress Note Today's Date: 01/05/2018 Admission Date: 12/13/2017 Assessment: # Leukocytosis- improved- ? Response to addition of migafungin - Unclear etiology - improved overall since starting micafungin; ? Fluconazole resistant Aracely spp - 01/03 down to 11.8 # GBS bacteremia w sepsis- source suspected left hip wound - Fever and leukocytosis began 12/20/17 - 4/3 L lower lobe infiltrate - read as atelectasis - 12/20 C. diff negative - 12/23 Bcx 09/21 set group B streptococcus; source seems most likely intra-pelvic - CT pelvis 12/25: "Ill-defined fluid and air along the anterior margin of the surgical site away from the drain tip. However, no discrete drainable fluid collection is noted." # Candiduria - 12/21/17 UA: wbc 2-10, negative nitrite, 1+ luukocytes, Culture > 100,000 Aracely sp - Sensitivities not done, unsure if fluconazole susceptible; repeat urine culture negative 12/28 but improved with micafungin so is suspicion for fluconazole resistance - Treating given indwelling melchor and inability to remove melchor d/t recent bladder repair - ? Candidal intertrigo - groin/mons # s/p hemipelvectomy for Chondrosarcoma - 11/25/17 [...] Stool saturating wound. Diverting colostomy done 12/30. # DVT - 11/30/17 IVC filter for DVT within the external iliac vein # Obese # HTN # DM # Hypothyroidism # Depression # Generalized pain # abx allergy - allergic history to Cephalexin 'years ago' with skin rash and hot flash - tolerated Penicillin when she had dental caries Recommendations: 1. Continue Zosyn 2. Continue micafungin 3. Monitor wounds closely for progressive wound breakdown- to date appears to be improving 4. Monitor for abx toxicity 5. Trend temp, WBC - 6. Tentative plan is to continue IV atbx though 01/13 (approx 3 weeks post presentation of sepsis w suspected wound/soft tissue infection occurring on 12/22) - if she transitions to rehab prior to this- could change Zosyn to Ertapenem for ease of dosing Complexity of medical decision making is high b/c of the multi-system nature of the infectious disease process and concerns about the complexity of the patient illness including the sensitivity of the organisms being treated, the potential for drug toxicity and interactions, concerns about immunologic function, and interplay of other issues. Interval History Afebrile, stable vitals. She is gaining strength. Discussed w nursing and sister. They agree. She is eating some. TF at night. DM still not optimally controlled Still has leakage from wound, mainly upper right area. No cough, sob, CP, n/v.. Ostomy working well. ROS otherwise neg Antimicrobial Start date End date Erythromycin 12/13 Neomycin 12/13 12/13 Polymyxin B 12/14 12/14 Gentamycin 12/14 12/15 Clindamycin 12/14 12/22 Pip/tazo 12/22 active Fluconazole 12/22 12/30 Vancomycin 12/23 12/27 Micafungin 12/30 active Estimated Creatinine Clearance: 110.1 mL/min (based on SCr of 0.65 mg/dL). Medications Scheduled Meds: acetaminophen (TYLENOL) tablet 1,000 mg 1,000 mg Oral Q8H* buPROPion (WELLBUTRIN) tablet 100 mg 100 mg Oral TID busPIRone (BUSPAR) tablet 15 mg 15 mg Oral BID gabapentin (NEURONTIN) capsule 800 mg 800 mg Oral Q12H insulin aspart U-100 (NOVOLOG FLEXPEN) injection PEN 0-14 Units 0-14 Units Subcutaneous 5 X Day insulin aspart U-100 (NOVOLOG FLEXPEN) injection PEN 8 Units 8 Units Subcutaneous TID after meals insulin glargine (LANTUS SOLOSTAR, BASAGLAR) injection PEN 20 Units 20 Units Subcutaneous QHS insulin NPH (HUMULIN N KwikPen) injection PEN 50 Units 50 Units Subcutaneous QHS lactobacillus rhamnosus GG (CULTURELLE) 15 billion cell capsule 1 capsule 1 capsule Oral BID w/meals levothyroxine (SYNTHROID) tablet 175 mcg 175 mcg Oral QDAY before breakfast lidocaine (LIDODERM) 5 % topical patch 2 patch 2 patch Topical QDAY micafungin (MYCAMINE) 100 mg in sodium chloride 0.9% (NS) 100 mL IVPB (MB+) 100 mg Intravenous Q24H* neomycin tablet 500 mg 500 mg Oral Q6H* oxyCODONE SR (OXYCONTIN) tablet 20 mg 20 mg Oral QHS pantop[address]ole DR (PROTONIX) tablet 40 mg 40 mg Oral QDAY(21) piperacillin/tazobactam (ZOSYN) 4.5 g/100 mL iso-osmotic IVPB 4.5 g Intravenous Q6H* rivaroxaban (XARELTO) tablet 20 mg 20 mg Oral QDAY w/breakfast vitamin A & D topical ointment Topical BID Continuous Infusions: PRN and Respiratory Meds:alum/mag hydroxide/simeth Q6H PRN, calcium carbonate Q4H PRN, diazePAM Q6H PRN, diphenhydrAMINE Q6H PRN OR [DISCONTINUED] diphenhydrAMINE Q6H PRN, HYDROmorphone (DILAUDID) injection Q4H PRN, naloxone PRN, ondansetron (ZOFRAN) IV Q6H PRN, oxyCODONE Q3H PRN, pancrelipase 20,000 Units/ sodium bicarbonate 650 mg(#) PRN (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 Application 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 [employer]) Physical Examination Vital Signs: Last Vital Signs: 24 Hour Range BP: 129/74 (01/05 555) Temp: 36.7 C (98 F) (01/05 555) Pulse: 103 (01/05 555) Respirations: 17 PER MINUTE (01/05 555) SpO2: 94 % (01/05 555) O2 Delivery: None (Room Air) (01/05 555) BP: (110-144)/(57-80) Temp: [36.5 C (97.7 F)-37.6 C (99.6 F)] Pulse: [98-112] Respirations: [16 PER MINUTE-17 PER MINUTE] SpO2: [93 %-97 %] O2 Delivery: None (Room Air) General appearance: obese, alert, oriented, HENT: mucus membranes moist, no oral lesions/thrush Eyes: EOMI, normal conj Lungs: no wheezing, rhonchi, rales appreciated anteriorly Heart: Regular rhythm, reg rate, with no murmur, rub, gallop Abdomen: obese, normal garcia sounds, soft, non-tender, non distended Ext: s/p left hemipelvectomy; There are areas of necrosis- along pannus continue to improve. Colostomy w/ soft brown stool in bag, stoma appears normal. Persistent dependent edema/erythema in the mons/vulvar area- waxes and wanes. Skin: no generalized rashes Psych: flat affect, depressed mood Lines: Indwelling melchor catheter Lab Review Hematology Recent Labs 01/03/18 0510 01/04/18 0245 01/05/18 0304 WBC 11.8* 10.3 9.7 HGB 8.5* 8.6* 8.4* HCT 25.0* 24.9* 24.3* PLTCT 524* 531* 527* Chemistry Recent Labs 01/03/18 0510 01/04/18 0245 01/04/18 1155 01/05/18 0304 NA 131* 131* -- 133* K 4.3 4.3 -- 4.1 CL 98 97* -- 98 CO2 28 29 -- 30 BUN 15 13 -- 13 CR 0.64 0.64 -- 0.65 GFR >60 >60 -- >60 GLU 180* 234* -- 291* CA 8.7 8.3* -- 8.3* PO4 2.2 -- -- -- ALBUMIN -- -- 2.2* -- Microbiology, Radiology and other Diagnostics Review Microbiology data reviewed. Indy Isabel MD Pager Beeper [phone] * Herminia Gant OTA - 01/04/2018 3:36 PM CDT OCCUPATIONAL THERAPY PROGRESS NOTE Mobility Progressive Mobility Level: Sit on edge of bed Level of Assistance: Assist X1 Assistive Device: None Time Tolerated: 11-30 minutes Activity Limited By: Fatigue Subjective Pertinent Dx per Physician: 52 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 Don't lie flat for extended periods of time Pain / Complaints: Patient premedicated Pain Location: Abdomen;Left;Hip Pain Level Current: 10 Worst possible pain Objective Psychosocial Status: Willing and Cooperative to Participate Persons Present: Sister ADL's Where Assessed: Edge of Bed Eating Assist: Independent (supplemental feeds. ) Grooming Assist: Stand By Assist Grooming Deficits: Setup;Brushing Hair LE Dressing Assist: Total Assist LE Dressing Deficits: Don/Doff R Sock Toileting Assist: Maximum Assist (incont of BM after session, melchor) Functional Transfer Assist: Moderate Assist Functional Transfer Deficits: (Supine/EOB) Comment: Pt performed UE theraband exercises with CGA for safety with sitting balance. Pt performed grooming tasks on EOB with SBA. Pt still with melchor. Pt reports abdominal pain and no BM for a couple of days through ostomy.Pt worked on scooting hips along EOB, unable to clear hips but good initiation of movement. Pt returned to bed after EOB activiites and RN called to assist with cleaning up after BM. Activity Tolerance Sitting Balance: 3+/5 Sits w/o UE Support for 30 Seconds or Greater Cognition Overall Cognitive Status: WFL to Adequately Complete Self Care Tasks Safely UE Strength / Tone Overall Strength / Tone: 4-/5 Assessment Assessment: Decreased ADL Status;Decreased Self-Care Trans Prognosis: Good;w/Cont OT s/p Acute Discharge Plan Treatment Interventions: ADL Retraining;Functional Transfer Training;Equipment Evaluation/Education Functional Transfer Goals Pt Will Transfer To Bedside Commode: w/ Moderate Assist Pt Will Transfer To Toilet: w/ Minimum Assist OT Discharge Recommendations OT Discharge Recommendations: Inpatient Setting Equipment Recommendations: BS Additional Information: Next treatment: Continue tolerance for activity to tolerate 3 hours of therapy on rehab. Therapist: HUYEN Schmidt Date: 01/04/2018 * Indy Isabel MD - 01/04/2018 2:43 PM CDT Formatting of this note may be different from the original. Infectious Diseases Progress Note Today's Date: 01/04/2018 Admission Date: 12/13/2017 Reason for this consultation: Consult Type: Co-Management w/Signed Orders Reason for consult S/p hemipelvectomy 12/14 for chondrosarcoma, inreasing leukocytosis w/out clear source Assessment: # Leukocytosis- improved- ? Response to addition of migafungin - Unclear etiology - improved overall since starting micafungin; ? Fluconazole resistant Aracely spp - 01/03 down to 11.8 # GBS bacteremia w sepsis- source suspected left hip wound - Fever and leukocytosis began 12/20/17 - 4/3 L lower lobe infiltrate - read as atelectasis - 12/20 C. diff negative - 12/23 Bcx 09/21 set group B streptococcus; source seems most likely intra-pelvic - CT pelvis 12/25: "Ill-defined fluid and air along the anterior margin of the surgical site away from the drain tip. However, no discrete drainable fluid collection is noted." # Candiduria - 12/21/17 UA: wbc 2-10, negative nitrite, 1+ luukocytes, Culture > 100,000 Aracely sp - Sensitivities not done, unsure if fluconazole susceptible; repeat urine culture negative 12/28 but improved with micafungin so is suspicion for fluconazole resistance - Treating given indwelling melchor and inability to remove melchor d/t recent bladder repair - ? Candidal intertrigo - groin/mons # s/p hemipelvectomy for Chondrosarcoma - 11/25/17 [...] Stool saturating wound. Diverting colostomy done 12/30. # DVT - 11/30/17 IVC filter for DVT within the external iliac vein # Obese # HTN # DM # Hypothyroidism # Depression # Generalized pain # abx allergy - allergic history to Cephalexin 'years ago' with skin rash and hot flash - tolerated Penicillin when she had dental caries Recommendations: 1. Continue Zosyn 2. Continue micafungin 3. Monitor wounds closely for progressive wound breakdown 4. Monitor for abx toxicity 5. Trend temp, WBC - 6. Tentative plan is to continue IV atbx though 01/13 (approx 3 weeks post presentation of sepsis w suspected wound/soft tissue infection occurring on 12/22) Complexity of medical decision making is high b/c of the multi-system nature of the infectious disease process and concerns about the complexity of the patient illness including the sensitivity of the organisms being treated, the potential for drug toxicity and interactions, concerns about immunologic function, and interplay of other issues. Interval History Afebrile, stable vitals. Making progress this week. Her wounds are overall stable. I viewed the more superior wound w nursing today during dressing change. Dr Luther changed the lower incision dressing and per pt and family- felt everything was looking better and good She is eating some, cont on TF. Ostomy is working ok. No cough or sob. No rash Antimicrobial Start date End date Erythromycin 12/13 Neomycin 12/13 12/13 Polymyxin B 12/14 12/14 Gentamycin 12/14 12/15 Clindamycin 12/14 12/22 Pip/tazo 12/22 active Fluconazole 12/22 12/30 Vancomycin 12/23 12/27 Micafungin 12/30 active Estimated Creatinine Clearance: 107.2 mL/min (based on SCr of 0.64 mg/dL). Medications Scheduled Meds: acetaminophen (TYLENOL) tablet 1,000 mg 1,000 mg Oral Q8H* buPROPion (WELLBUTRIN) tablet 100 mg 100 mg Oral TID busPIRone (BUSPAR) tablet 15 mg 15 mg Oral BID gabapentin (NEURONTIN) capsule 800 mg 800 mg Oral Q12H insulin aspart U-100 (NOVOLOG FLEXPEN) injection PEN 0-14 Units 0-14 Units Subcutaneous 5 X Day insulin aspart U-100 (NOVOLOG FLEXPEN) injection PEN 8 Units 8 Units Subcutaneous TID after meals insulin glargine (LANTUS SOLOSTAR, BASAGLAR) injection PEN 20 Units 20 Units Subcutaneous QHS insulin NPH (HUMULIN N KwikPen) injection PEN 50 Units 50 Units Subcutaneous QHS lactobacillus rhamnosus GG (CULTURELLE) 15 billion cell capsule 1 capsule 1 capsule Oral BID w/meals levothyroxine (SYNTHROID) tablet 175 mcg 175 mcg Oral QDAY before breakfast lidocaine (LIDODERM) 5 % topical patch 2 patch 2 patch Topical QDAY micafungin (MYCAMINE) 100 mg in sodium chloride 0.9% (NS) 100 mL IVPB (MB+) 100 mg Intravenous Q24H* neomycin tablet 500 mg 500 mg Oral Q6H* oxyCODONE SR (OXYCONTIN) tablet 20 mg 20 mg Oral QHS pantoprazole DR (PROTONIX) tablet 40 mg 40 mg Oral QDAY(21) piperacillin/tazobactam (ZOSYN) 4.5 g/100 mL iso-osmotic IVPB 4.5 g Intravenous Q6H* rivaroxaban (XARELTO) tablet 20 mg 20 mg Oral QDAY w/breakfast vitamin A & D topical ointment Topical BID Continuous Infusions: PRN and Respiratory Meds:alum/mag hydroxide/simeth Q6H PRN, calcium carbonate Q4H PRN, diazePAM Q6H PRN, diphenhydrAMINE Q6H PRN OR [DISCONTINUED] diphenhydrAMINE Q6H PRN, HYDROmorphone (DILAUDID) injection Q4H PRN, naloxone PRN, ondansetron (ZOFRAN) IV Q6H PRN, oxyCODONE Q3H PRN, pancrelipase 20,000 Units/ sodium bicarbonate 650 mg(#) PRN (Sharepoint Application 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 Rx) Physical Examination Vital Signs: Last Vital Signs: 24 Hour Range BP: 120/66 (01/04 1327) Temp: 37.6 C (99.6 F) (01/04 1327) Pulse: 111 (01/04 1327) Respirations: 16 PER MINUTE (01/04 1327) SpO2: 93 % (01/04 1327) O2 Delivery: None (Room Air) (01/04 1327) BP: (107-126)/(57-70) Temp: [36.3 C (97.4 F)-37.6 C (99.6 F)] Pulse: [95-111] Respirations: [16 PER MINUTE-18 PER MINUTE] SpO2: [93 %-98 %] O2 Delivery: None (Room Air) General appearance: obese, alert, oriented, NAD HENT: mucus membranes moist, no oral lesions/thrush Eyes: EOMI, normal conj Lungs: no wheezing, rhonchi, rales appreciated Heart: Regular rhythm, reg rate, with no murmur, rub, gallop Abdomen: obese, normal garcia sounds, soft, non-tender, non distended Ext: s/p left hemipelvectomy; There are areas of necrosis- along pannus continue to improve. Colostomy placed w/ stool in bag, stoma appears normal. Persistent dependent edema/erythema in the mons/vulvar area today. Skin: no generalized rashes Psych: flat affect, depressed mood Lines: Indwelling melchor catheter Lab Review Hematology Recent Labs 01/02/18 0325 01/03/18 0510 01/04/18 0245 WBC 13.1* 11.8* 10.3 HGB 8.6* 8.5* 8.6* HCT 24.7* 25.0* 24.9* PLTCT 503* 524* 531* Chemistry Recent Labs 01/02/18 0325 01/03/18 0510 01/04/18 0245 01/04/18 1155 NA 129* 131* 131* -- K 4.0 4.3 4.3 -- CL 97* 98 97* -- CO2 28 28 29 -- BUN 17 15 13 -- CR 0.65 0.64 0.64 -- GFR >60 >60 >60 -- GLU 269* 180* 234* -- CA 8.7 8.7 8.3* -- PO4 1.7* 2.2 -- -- ALBUMIN -- -- -- 2.2* Microbiology, Radiology and other Diagnostics Review Microbiology data reviewed. Indy Isabel MD Pager Beeper 2007 * Lynn Barrera - 01/04/2018 2:22 PM CDT PHYSICAL THERAPY MOBILITY NOTE Patient was assigned for activity with the mobility aide by the supervising therapist. Patient is unavailable. Patient working with Occupational Therapy at this time. Will revisit for mobility session as able. Aide: Lynn Barrera Date: 01/04/2018 * Kalie Sibley MBBS - 01/04/2018 12:15 PM CDT Formatting of this note may be different from the original. Endocrinology Hospital Follow Up Visit Today's Date: 01/04/2018 Admission Date: 12/13/2017 Assessment: 1. 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 Enteral Nutrition 4. Obesity Class III 5. Hyperlipidemia On lovastatin 6. Chondorsarcoma Pelvis s/p hemipelvectomy Recommendations: Patient with inadequate blood sugar control yesterday and plan to compress the tube feeds to nocturnal so we have made the following changes today Increase Novolog to 8 units post meals as appetite improved Start NPH 50 units to be given before the starting of the nocturnal Tube feed ( Dose based on her insulin to carb ratio ) Continue with Lantus 20 units QHS Continue with MDCF Current TF regimen : Nutren 1.5, goal rate 75ml/hr x 12hr at night Thank you for the consult , we will continue to follow Patient seen and discussed with Dr. Concepcion History of Present Illness Beata Kaiser is a 52 y.o. The patient states her appetite is improving . She denies hypoglycemia. She denies nausea or vomiting. She is having some surgical pain. No other new complaints. TFS running at goal this am . Plan to compress to nocturnal tube feeds Estimated Creatinine Clearance: 107.2 mL/min (based on SCr of 0.64 mg/dL). Allergies Allergies Allergen Reactions Cephalexin SEE COMMENTS Face gets red, feels really hot, has tolerated penicillin Review of Systems The patient denies headache, vision changes, shortness of air, chest pain, abdominal pain, nausea or vomiting. Medications Scheduled Meds: acetaminophen (TYLENOL) tablet 1,000 mg 1,000 mg Oral Q8H* buPROPion (WELLBUTRIN) tablet 100 mg 100 mg Oral TID busPIRone (BUSPAR) tablet 15 mg 15 mg Oral BID gabapentin (NEURONTIN) capsule 800 mg 800 mg Oral Q12H insulin aspart U-100 (NOVOLOG FLEXPEN) injection PEN 0-14 Units 0-14 Units Subcutaneous 5 X Day insulin aspart U-100 (NOVOLOG FLEXPEN) injection PEN 8 Units 8 Units Subcutaneous TID after meals insulin glargine (LANTUS SOLOSTAR, BASAGLAR) injection PEN 20 Units 20 Units Subcutaneous QHS insulin NPH (HUMULIN N KwikPen) injection PEN 50 Units 50 Units Subcutaneous QHS lactobacillus rhamnosus GG (CULTURELLE) 15 billion cell capsule 1 capsule 1 capsule Oral BID w/meals levothyroxine (SYNTHROID) tablet 175 mcg 175 mcg Oral QDAY before breakfast lidocaine (LIDODERM) 5 % topical patch 2 patch 2 patch Topical QDAY micafungin (MYCAMINE) 100 mg in sodium chloride 0.9% (NS) 100 mL IVPB (MB+) 100 mg Intravenous Q24H* neomycin tablet 500 mg 500 mg Oral Q6H* oxyCODONE SR (OXYCONTIN) tablet 20 mg 20 mg Oral QHS pantoprazole DR (PROTONIX) tablet 40 mg 40 mg Oral QDAY(21) piperacillin/tazobactam (ZOSYN) 4.5 g/100 mL iso-osmotic IVPB 4.5 g Intravenous Q6H* rivaroxaban (XARELTO) tablet 20 mg 20 mg Oral QDAY w/breakfast vitamin A & D topical ointment Topical BID Continuous Infusions: PRN and Respiratory Meds:alum/mag hydroxide/simeth Q6H PRN, calcium carbonate Q4H PRN, diazePAM Q6H PRN, diphenhydrAMINE Q6H PRN OR [DISCONTINUED] diphenhydrAMINE Q6H PRN, HYDROmorphone (DILAUDID) injection Q4H PRN, naloxone PRN, ondansetron (ZOFRAN) IV Q6H PRN, oxyCODONE Q3H PRN, pancrelipase 20,000 Units/ sodium bicarbonate 650 mg(#) PRN (Sharepoint Application 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 Rx) Physical Examination Vital Signs: Last Vital Signs: 24 Hour Range BP: 114/57 (01/04 1007) Temp: 37.1 C (98.7 F) (01/04 1007) Pulse: 101 (01/04 1007) Respirations: 16 PER MINUTE (01/04 1007) SpO2: 95 % (01/04 1007) O2 Delivery: None (Room Air) (01/04 1007) BP: (107-126)/(57-70) Temp: [36.3 C (97.4 F)-37.1 C (98.7 F)] Pulse: [95-109] Respirations: [16 PER MINUTE-18 PER MINUTE] SpO2: [95 %-98 %] O2 Delivery: None (Room Air) General appearance: alert, oriented, NAD, OG + CVS; RRR Resp: breathing comfortably Abd; Colostomy + Ext: s/p left hemipelvectomy Neuro: Alert Recent Labs 01/02/18 2244 01/03/18 0200 01/03/18 0751 01/03/18 1444 01/03/18 1653 01/03/18202017/18 0239 01/04/18 0750 GLUPOC 302* 236* 119* 168* 221* 255* 208* 233* Lab Review Point of Care Testing (Last 24 hours) Glucose: (!) 234 (01/04/18 0245) POC Glucose (Download): (!) 233 (01/04/18 0750) Recent Labs 01/02/18 0325 01/02/18 0945 01/03/18 0510 01/04/18 0245 NA 129* -- 131* 131* K 4.0 -- 4.3 4.3 CL 97* -- 98 97* CO2 28 -- 28 29 GAP 4 -- 5 5 BUN 17 -- 15 13 CR 0.65 -- 0.64 0.64 GLU 269* -- 180* 234* CA 8.7 -- 8.7 8.3* MG 1.9 -- 1.8 -- PO4 1.7* -- 2.2 -- TSH -- 12.590* -- -- Recent Labs 01/02/18 0325 01/03/18 0510 01/04/18 0245 WBC 13.1* 11.8* 10.3 HGB 8.6* 8.5* 8.6* HCT 24.7* 25.0* 24.9* PLTCT 503* 524* 531* Estimated Creatinine Clearance: 107.2 mL/min (based on SCr of 0.64 mg/dL). Vitals: 12/18/17 0600 12/27/17 0654 12/30/17 0820 Weight: 92.5 kg (203 lb 14.8 oz) 98.5 kg (217 lb 2.5 oz) 98.5 kg (217 lb 2.5 oz ) Thyroid Studies Lab Results Component Value Date/Time TSH 12.590 (H) 01/02/2018 09:45 AM No results found for: FREET3, [id number], THYBINDGLB Pertinent radiology images viewed. Impression: RAMIREZ Soto 01/04/2018 Endocrine Associated attestation - Serenity Concepcion MD - 01/04/2018 4:25 PM CDT Formatting of this note may be different from the original. ATTESTATION I personally performed the banuelos portions of the E/M visit, discussed case with resident and concur with resident documentation of history, physical exam, assessment, and treatment plan unless otherwise noted. Staff name: Serenity Concepcion MD Date: 01/04/2018 * Tamiko Luther MD - 01/04/2018 11:47 AM CDT I met with the pt and her sister again yesterday and answered numerous questions. We again addressed that the only area of residual tumor was in the femoral vein that could not be resected, as there so no good option for bypassing that length of vein and keep the needed outflow from the flap. We changed the pt's dressing today. There is no warmth or erythema. There is no further extension of the eschar. There is clear drainage, primarily from the inferior aspect of the incision. Overall, the flap is slightly less swollen. The drain hold has sealed. We again discussed that the primary issues are her nutrition and the need to spend much of her time on her right side. We discussed the need for more work with PT to start spending time standing and in a chair. We will assess her calorie counts from today, as well as re-check her serum albumin. We will change her pain medications, as recommended by the pain service. * Nani Mcelroy RN - 01/04/2018 11:47 AM CDT Formatting of this note may be different from the original. Wound Ostomy Note NAME:Beata Kaiser :1965 AGE: 52 y.o. ADMISSION DATE: 12/13/2017 DAYS ADMITTED: LOS: 22 days Reason for Consult/Visit: wound not pressure and ostomy education Assessment/Plan: Principal Problem: Pelvic mass Active Problems: Pelvic mass in female Metabolic acidosis Acute blood loss as cause of postoperative anemia Depression Anxiety DM (diabetes mellitus) (HCC) Hypothyroidism Hemorrhagic shock (HCC) Chronic pain Wounds (NOT for Pressure Injuries) 12/20/17 1530 Frontal Other (Comment) Moisture Associated Skin Damage (Active) 12/20/17 1530 Other (Comment) Wound Orientation: Frontal Wound Type: Moisture Associated Skin Damage Wound Type:: Wound Description (Comments): Agree With My Assessment? Wound Base Assessment Moist;Garber;Gallardo;Yellow Surrounding Skin Assessment Intact Wound Site Closure None Wound Drainage Amount None Wound Drainage Description Serosanguineous Wound Dressing Status Intact Wound Dressing and / or Treatment Aquacel AG Number of days: 15 Wounds (NOT for Pressure Injuries) 12/23/17 1345 Left Labia (Active) 12/23/17 1345 Labia Wound Orientation: Left Wound Type: Wound Type:: Wound Description (Comments): Wound Base Assessment Moist;Pale;Garber;Yellow Surrounding Skin Assessment Edema Wound Site Closure Open to Air Wound Drainage Amount None Wound Drainage Description Serous Wound Dressing Status Open to Air Wound Dressing and / or Treatment A & D Ointment Wound Length (cm) (Wound Team Only) 7.5 cm 12/23/2017 1:00 PM Wound Width (cm) (Wound Team Only) 2.5 cm 12/23/2017 1:00 PM Wound Depth (cm) (Wound Team Only) 0.1 12/23/2017 1:00 PM Wound Volume (cm^3) (Wound Team Only) 1.875 cm^3 12/23/2017 1:00 PM Number of days: 12 Colostomy 12/30/17 1209 Right (Active) 12/30/17 1209 Right Stoma Assessment Garber, round, protruding Drainage Description Gallardo;Brown Peristomal Skin Assessment Dry;Intact Dressing Status Intact/ 2 piece olinda Drain Output (ml) F/U with pt for wounds and ostomy education. Pt states she has been watching nursing care for her ostomy. Left labia wound base remains pink and yellow. Much less edematous. Melchor catheter in place , Monitor that tubing does not pull against the left labia wound. . Continue A&D ointment Left lower abdomin with black and gallardo scabbing- continue A&D to loosen. Beginning to left ( removed using 4x4s ) Aquacel AG abdominal skin fold open wounds. Pt is unable to turn to the left d/t surgical incisions. Continue to wash Abdominal / skin fold wounds daily with soap and water, gently remove any loose skin then reapply A&D ointment/ or Aquacel Aq Nani Mcelroy RN, BSN Wound Ostomy Nursing Consult Service Office: [phone] Pager: [phone] After hours Wound/Ostomy team pager : [phone] * Arnaldo Delacruz MD - 01/04/2018 11:45 AM CDT Formatting of this note may be different from the original. Physical Medicine & Rehabilitation Progress Note Patient name: Beata Kaiser Patient age: 52 y.o. Today's Date: 01/04/2018 Admission Date: 12/13/2017 LOS: 22 days Assessment/Plan: Principal Problem: Pelvic mass Active Problems: Pelvic mass in female Metabolic acidosis Acute blood loss as cause of postoperative anemia Depression Anxiety DM (diabetes mellitus) (HCC) Hypothyroidism Hemorrhagic shock (HCC) Chronic pain Beata Kaiseris a 52 y.o.female[facility] the following issues: S/p hemipelvectomy for left pelvic chondrosarcoma Impairments: amputation (lower extremity), pain and poor activity tolerance Activity Limitations: grooming, bathing, dressing - lower, toileting, bladder control, transfers, ambulation and stairs Participation Restrictions: unable to return home safely This is a follow up visit from initial consultation performed on 12/27/2017 Beata Kaiser is a 52 yo F who presented to [facility] on 12/13/17 for scheduled left hemipelvectomy for [...] urethral injury. These were repaired by urology. NGT placed for post-op nutrition and has since been removed. Pt developed increasing leukocytosis and fevers post-op and infectious disease consulted for further work-up. Pt started on anti-bx for possible hospital acquired pneumonia. Fluconazole started for candiduria as per urology. Psych consulted for depression. Ex lap w/ diverting colostomy performed on 12/30 for stool diversion for non-healing wounds. Endocrinology was consulted for DMII hyperglycemia on TPN. TPN discontinued on 01/02 with diet advancement. ID following with abx management for GBS bacteriemia w/ sepsis, aracely UTI; currently on Zosyn, Micafungin. Hyponatermia treated with fluid restriction. Currently tolerating reg diet (CC) with nocturnal TFs. Recommendations: The patient certainly has medical complexity and functional deficits to warrant acute inpatient rehab. the patient is motivated to participate with rehab therapies and prefers to discharge to rehab. Our service will continue to follow. Potential barriers Arnaldo Delacruz MD Subjective Beata Kaiser is a 52 y.o. female. Patient reports she feels her incision site is healing well. She reports improved pain. She states she wants to start working more with PT and OT on transfers. She states she has consistent assistance at home. Current Level Of Function: PT Gait: Bed Mobility/Transfers Bed Mobility: Rolling: Moderate Assist, Assist with Trunk Bed Mobility: Supine to Sit: Moderate Assist, x2 People, Head of Bed Elevated, Use of Rail, Assist with Trunk Bed Mobility: Sit to Supine: Minimal Assist, x2 People, Use of Rail, Bed Flat, Assist with R LE Comments: Pt complained of dizziness when first sitting up, blood pressure was measured at 138/73. Transfer Type: Sit to/from Stand Transfer: Assistance Level: To/From, Bed, Moderate Assist, x2 People Transfer: Assistive Device: Roller Walker Transfers: Type Of Assistance: Verbal Cues, Elevated Bed, Knees(s) Blocked, For Balance, For Strength Deficit Other Transfer Type: Stand Pivot Other Transfer: Assistance Level: To, Bed Side Chair, From, Bed Other Transfer: Assistive Device: Roller Walker Other Transfer: Type Of Assistance: Knees(s) Blocked, Verbal Cues, Elevated Bed , For Balance, For Strength Deficit End Of Activity Status: In Bed, Nursing Notified Comments: Following static standing, pt stated she felt weak and tired but was willing to perform a stand pivot transfer from the bed to the bed side chair. Due to pt fatigue following sitting up in bedside chair for 15 minutes, a sit to stand lift was utilized to transfer the pt from the bedside chair back to the bed. OT ADL's Where Assessed: Edge of Bed Eating Assist: Independent Eating Deficits: Beverage Management Grooming Assist: Stand By Assist Grooming Deficits: Setup, Wash/Dry Hands, Wash/Dry Face, Teeth Care Bathing Assist: Minimal Assist (for sitting balance, upper body bathing only) Bathing Deficits: Chest, L Arm, R Arm, Abdomen, Steadying, Verbal Cueing, Increased Time to Complete UE Dressing Assist: Stand By Assist UE Dressing Deficits: Setup, Thread RUE, Thread LUE, Pull Around Back LE Dressing Assist: Total Assist LE Dressing Deficits: Don/Doff R Sock Toileting Assist: Total Assist Toileting Deficits: Perineal Hygiene (melchor, incontinent of BM) Functional Transfer Assist: Moderate Assist Functional Transfer Deficits: (Supine/EOB) Comment: Patient mod assist for supine/EOB transfers. Patient sat EOB for 20 minutes SBA to perform grooming tasks and reaching activity for dynamic sitting balance. After 20 min, patient requesting a rest then reported increased dizziness. Upon returning patient to supine, patient wound noted to have leaked a significant amount of fluid. RN notified. ERP IMPLEMENTATION CONSULTANT COGNITIVE EVALUATION SUMMARY PRAGMATICS: BEHAVIOR: AUDITORY COMPREHENSION: ORIENTATION: AUDITORY ATTENTION/WORKING MEMORY: AUDITORY MEMORY/SUSTAINED ATTENTION: NEW LEARNING: SEQUENCING/ORGANIZATION: PROBLEM SOLVING: REASONING: MATH/MONEY SKILLS: VISUAL PERCEPTUAL: SWALLOW EVALUATION SUMMARY Review of Systems - A 10 point review of systems was negative accept where reported in the HPI Medications Scheduled Meds: acetaminophen (TYLENOL) tablet 1,000 mg 1,000 mg Oral Q8H* buPROPion (WELLBUTRIN) tablet 100 mg 100 mg Oral TID busPIRone (BUSPAR) tablet 15 mg 15 mg Oral BID gabapentin (NEURONTIN) capsule 800 mg 800 mg Oral Q12H insulin aspart U-100 (NOVOLOG FLEXPEN) injection PEN 0-14 Units 0-14 Units Subcutaneous 5 X Day insulin aspart U-100 (NOVOLOG FLEXPEN) injection PEN 8 Units 8 Units Subcutaneous TID after meals insulin glargine (LANTUS SOLOSTAR, BASAGLAR) injection PEN 20 Units 20 Units Subcutaneous QHS insulin NPH (HUMULIN N KwikPen) injection PEN 50 Units 50 Units Subcutaneous QHS lactobacillus rhamnosus GG (CULTURELLE) 15 billion cell capsule 1 capsule 1 capsule Oral BID w/meals levothyroxine (SYNTHROID) tablet 175 mcg 175 mcg Oral QDAY before breakfast lidocaine (LIDODERM) 5 % topical patch 2 patch 2 patch Topical QDAY micafungin (MYCAMINE) 100 mg in sodium chloride 0.9% (NS) 100 mL IVPB (MB+) 100 mg Intravenous Q24H* neomycin tablet 500 mg 500 mg Oral Q6H* oxyCODONE SR (OXYCONTIN) tablet 20 mg [address]HS [address] (PROTONIX) tablet 40 mg 40 mg Oral QDAY(21) piperacillin/tazobactam (ZOSYN) 4.5 g/100 mL iso-osmotic IVPB 4.5 g Intravenous Q6H* rivaroxaban (XARELTO) tablet 20 mg 20 mg Oral QDAY w/breakfast vitamin A & D topical ointment Topical BID Continuous Infusions: PRN and Respiratory Meds:alum/mag hydroxide/simeth Q6H PRN, calcium carbonate Q4H PRN, diazePAM Q6H PRN, diphenhydrAMINE Q6H PRN OR [DISCONTINUED] diphenhydrAMINE Q6H PRN, HYDROmorphone (DILAUDID) injection Q4H PRN, naloxone PRN, ondansetron (ZOFRAN) IV Q6H PRN, oxyCODONE Q3H PRN, pancrelipase 20,000 Units/ sodium bicarbonate 650 mg(#) PRN (Sharepoint Application 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 Rx) Objective Vital Signs: Last Filed Vital Signs: 24 Hour Range BP: 114/57 (01/04 1007) Temp: 37.1 C (98.7 F) (01/04 1007) Pulse: 101 (01/04 1007) Respirations: 16 PER MINUTE (01/04 1007) SpO2: 95 % (01/04 1007) O2 Delivery: None (Room Air) (01/04 1007) BP: (107-126)/(57-70) Temp: [36.3 C (97.4 F)-37.1 C (98.7 F)] Pulse: [95-109] Respirations: [16 PER MINUTE-18 PER MINUTE] SpO2: [95 %-98 %] O2 Delivery: None (Room Air) Intensity Pain Scale 0-10 (Pain 1): 8 (01/03/18 2325) Vitals: 12/18/17 0600 12/27/17 0654 12/30/17 0820 Weight: 92.5 kg (203 lb 14.8 oz) 98.5 kg (217 lb 2.5 oz) 98.5 kg (217 lb 2.5 oz ) Intake/Output Summary: (Last 24 hours) Intake/Output Summary (Last 24 hours) at 01/04/18 1145 Last data filed at 01/04/18 0944 Gross per 24 hour Intake 3068 ml Output 3159 ml Net -91 ml Stool Occurrence: 1 Oral Diet Order: Six Small Meals Last BM Date: 01/03/18 Bowel Accident: 1 Physical Exam VS: BP 114/57 (BP Source: Arm, Left) | Pulse 101 | Temp 37.1 C (98.7 F) | Ht 162.6 cm (64") | Wt 98.5 kg (217 lb 2.5 oz) | SpO2 95% | BMI 37.27 kg/m Gen: AOX3, NAD HEENT: EOMI, MMM Heart: Extremtities well perfused Lungs: Good inspiratory effort without recruitment of accessory muscles Abd: Soft, non-distended Ext: Lt hemipelvectomy * RebekahLeslie toddeb - 01/04/2018 10:58 AM CDT Formatting of this note may be different from the original. Subjective: No acute events overnight. Pain well-controlled. Objective: Blood pressure 114/57, pulse 101, temperature 37.1 C (98.7 F), height 162.6 cm (64"), weight 98.5 kg (217 lb 2.5 oz), SpO2 95 %. General: AAOx3, NAD Cardiac: Tachycardic Respirations: Unlabored Extremities: LLE hemipelvectomy, dressings saturated. changed today. No results for input(s): PTT, INR in the last 72 hours. CBC w/Diff Lab Results Component Value Date/Time WBC 10.3 01/04/2018 02:45 AM HGB 8.6 (L) 01/04/2018 02:45 AM HCT 24.9 (L) 01/04/2018 02:45 AM PLTCT 531 (H) 01/04/2018 02:45 AM Basic Metabolic Profile Lab Results Component Value Date/Time NA 131 (L) 01/04/2018 02:45 AM K 4.3 01/04/2018 02:45 AM CL 97 (L) 01/04/2018 02:45 AM CO2 29 01/04/2018 02:45 AM GAP 5 01/04/2018 02:45 AM Lab Results Component Value Date/Time BUN 13 01/04/2018 02:45 AM CR 0.64 01/04/2018 02:45 AM GLU 234 (H) 01/04/2018 02:45 AM A/P: 52 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 -PT/OT -Diet: Diabetic diet -Melchor catheter x4 wks minimum -Maintain dressings, ortho to manage - reinforce as needed -Orals for pain control, gabapentin - Nursing pain management consult. Added long acting and modified tam. -Xarelto for DVT -Please do not leave flat for extended periods of time, patient to lay onto her right side as much as possible -Acute blood loss anemia - Hgb 8.6 today -Rehab consult- appreciate recs -Strongly recommend patient be discharged to IRF instead of SNF, would prefer [facility] -Psych, HUM[employer] RECEPTIONIST psych and psychology consults for coping, depression - appreciate assistance -Endocrine consult for blood sugar management - appreciate recs -ID consult - Zosyn, micafungin -Nutrition following for optimization - TPN (continue for now), tube feeds switched to nocturnal. - Prealbumin and albumin ordered. -General Surgery consult - colostomy 12/30 Dispo: Continue inpatient care César Davis MD [id number] * Chari Moon - 01/04/2018 10:32 AM CDT PHYSICAL THERAPY PROGRESS NOTE MOBILITY: Mobility Progressive Mobility Level: Active transfer to chair Level of Assistance: Assist X2 Assistive Device: Walker Time Tolerated: 11-30 minutes Activity Limited By: Fatigue;Weakness;Pain SUBJECTIVE: Subjective Significant hospital events: 52 y/o F with history of left osteosarcoma s/p left hemipelvectomy, cystorrhaphy and bladder neck repair, cystoscopy, and left iliac exposure 12/14/17 Mental / Cognitive Status: Alert;Oriented;Cooperative Persons Present: Sister;Nursing Staff (Supervising 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 Don't lie flat for extended periods of time Ambulation Assist: Independent Mobility in Community without Device Patient Owned Equipment: Crutches Home Situation: Lives with Family Type of Home: House Entry Stairs: 1-2 Stairs In-Home Stairs: No Stairs BED MOBILITY/TRANSFERS: Bed Mobility/Transfers Bed Mobility: Supine to Sit: Moderate Assist; head of bed elevated; use of rail Bed Mobility: Sit to Supine: Minimal Assist;x2 People; head of bed elevated Transfer Type: Sit to/from Stand (2 times) Transfer: Assistance Level: To/From;Bed;x2 People;Maximal Assist Transfer: Assistive Device: Roller Walker Transfers: Type Of Assistance: Verbal Cues;Knees(s) Blocked;For Strength Deficit Other Transfer Type: Stand Pivot Other Transfer: Assistance Level: Maximal Assist;x2 People;To/From;Bed Side Chair Other Transfer: Assistive Device: Roller Walker Other Transfer: Type Of Assistance: Knees(s) Blocked;For Strength Deficit End Of Activity Status: In Bed;Nursing Notified Comments: Pt was able to stand pivot transfer to/from bedside chair with max assist x2 with R knee blocked and B UE support from staff due to weakness in the R LE and pain in L hip. Pt also required assistance with pivoting walker during the transfer. BALANCE: Balance Sitting Balance: Static Sitting Balance;2 UE Support;Standby Assist Standing Balance: Static Standing Balance;2 UE support;Minimal Assist;x2 People (R knee blocked) ACTIVITY/EXERCISE: Activity / Exercise Sit Edge Of Bed: 5 minutes Sit Edge Of Bed Assist: Stand By Assist Stand At Bedside : 3 minutes Stand At Bedside Assist: Moderate Assist;x2 People Activity Limited By: Weakness;Complaint of Pain ASSESSMENT/PROGRESS: Assessment/Progress Impaired Mobility Due To: Pain;Post Surgical Precautions;Post Surgical Changes; Decreased Activity Tolerance Impaired Strength Due To: Post Surgical Changes;Decreased Activity Tolerance; Deconditioning Comments: Pt demonstrated increased fatigue and weakness following first stand pivot transfer from the bed to the chair. Pt also had increased anxiety and pain in surgical region and buttocks while sitting in the bedside chair. Pt was unable to terminally extend knee on her own during first attempt at standing, but was able to on second sit to stand attempt from the bed. Assessment/Progress: Should Improve w/ Continued PT AM-PAC 6 Clicks Basic Mobility Inpatient Turning from your back to your side while in a flat bed without using bed rails : A lot Moving from lying on your back to sitting on the side of a flatbed without using bedrails : A Lot Moving to and from a bed to a chair (including a wheelchair): A Lot Standing up from a chair using your arms (e.g. wheelchair, or bedside chair): A Lot To walk in hospital room: Total Climbing 3-5 steps with a railing: Total Raw Score: 10 Standardized (T-scale) Score: 28.13 Basic Mobility CMS 0-100%: 71.92 CMS G Code Modifier for Basic Mobility: CL GOALS: Goals Goal Formulation: With Patient/Family Time For Goal Achievement: 7 days Pt Will Go Supine To/From Sit: w/ Moderate Assist Pt Will Transfer Bed/Chair: w/ Moderate Assist Pt Will Transfer Sit to Stand: w/ Moderate Assist PLAN: Plan Treatment Interventions: Mobility Training Plan Frequency: 5-7 Days per Week Comments: improve standing tolerance, stand-pivot transfers RECOMMENDATIONS: PT Discharge Recommendations PT Discharge Recommendations: Inpatient Setting Equipment Recommendations: Too early to be determined Recommend ongoing assistance for: In and out of house;Transfers;Bed mobility; Ambulation;Stairs;Toileting Therapist: Chari Moon Date: 01/04/2018 Associated attestation - Cassandra Villatoro - 01/04/2018 2:32 PM CDT I was present and involved in directing the care of the patient throughout the physical therapy session. * Lina Lea RN - 01/03/2018 6:54 PM CDT I have reviewed the notes, assessment, and/or procedures performed by SN Abhishek, and concur with her/his documentation unless otherwise noted. * Indy Isabel MD - 01/03/2018 4:58 PM CDT Formatting of this note may be different from the original. 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 Fluconazole resistant Aracely spp - 01/03 down to 11.8 # GBS bacteremia w sepsis - Fever and leukocytosis began 12/20/17 - 4/3 L lower lobe infiltrate - read as atelectasis - 12/20 C. diff negative - 12/23 Bcx 09/21 set group B streptococcus; source seems most likely intra-pelvic - CT pelvis 12/25: "Ill-defined fluid and air along the anterior margin of the surgical site away from the drain tip. However, no discrete drainable fluid collection is noted." # Candiduria - 12/21/17 UA: wbc 2-10, negative nitrite, 1+ luukocytes, Culture > 100,000 Aracely sp - Sensitivities not done, unsure if fluconazole susceptible; repeat urine culture negative 12/28 but improved with micafungin so is suspicion for fluconazole resistance - Treating given indwelling melchor and inability to remove melchor d/t recent bladder repair - ? Candidal intertrigo - groin/mons # s/p hemipelvectomy for Chondrosarcoma - 11/25/17 [...] Stool saturating wound. Diverting colostomy done 12/30. # DVT - 11/30/17 IVC filter for DVT within the external iliac vein # Obese # HTN # DM # Hypothyroidism # Depression # Generalized pain # abx allergy - allergic history to Cephalexin 'years ago' with skin rash and hot flash - tolerated Penicillin when she had dental caries Recommendations: 1. Continue Zosyn 2. Continue micafungin 3. Monitor wounds closely for progressive wound breakdown 4. Monitor for abx toxicity 5. Trend temp, WBC - leukocytosis improved again today 6. Duration of abx yet to be determined Will follow. Staffed with attending, Dr. Isabel. ATTESTATION I have seen and examined the patient today. I discussed the case with Dr. Pedro , the Infectious Diseases fellow. I concur with her findings documented in this note. I personally reviewed the history, laboratory and microbiology data as well as imaging studies today. The content of this consult was modified by me where necessary. Complexity of medical decision making is high b/c of the multi -system nature of the infectious disease process and concerns about the complexity of the patient illness including the identification and sensitivity of the organisms being treated, the potential for drug toxicity which requires monitoring of CBC, chemistry and potential drug levels between visits, potential drug interactions which could lead to life threatening outcome, concerns about immunologic function, and interplay of other issues. Indy Isabel MD Date: 01/03/2018 Pager: [phone] Interval History Afebrile, stable vitals. ROS - Pt reports some abdominal tenderness. She is quite frustrated because her posterior left sided abdominal wound drains frequently, limited her physical therapy, and she feels she is not making progress. No nausea, vomiting, headache , dizziness, new skin rashes. WBC down today to 11.8 Creatinine 0.64 Antimicrobial Start date End date Erythromycin 12/13 Neomycin 12/13 12/13 Polymyxin B 12/14 12/14 Gentamycin 12/14 12/15 Clindamycin 12/14 12/22 Pip/tazo 12/22 active Fluconazole 12/22 12/30 Vancomycin 12/23 12/27 Micafungin 12/30 active Estimated Creatinine Clearance: 107.2 mL/min (based on SCr of 0.64 mg/dL). Medications Scheduled Meds: acetaminophen (TYLENOL) tablet 1,000 mg 1,000 mg Oral Q6H* buPROPion (WELLBUTRIN) tablet 100 mg 100 mg Oral TID busPIRone (BUSPAR) tablet 15 mg 15 mg Oral BID gabapentin (NEURONTIN) capsule 600 mg 600 mg Oral Q6H insulin aspart U-100 (NOVOLOG FLEXPEN) injection PEN 0-28 Units 0-28 Units Subcutaneous 5 X Day insulin aspart U-100 (NOVOLOG FLEXPEN) injection PEN 6 Units 6 Units Subcutaneous TID after meals insulin glargine (LANTUS SOLOSTAR, BASAGLAR) injection PEN 20 Units 20 Units Subcutaneous QHS insulin NPH (HUMULIN N KwikPen) injection PEN 15 Units 15 Units Subcutaneous Q8H * lactobacillus rhamnosus GG (CULTURELLE) 15 billion cell capsule 1 capsule 1 capsule Oral BID w/meals levothyroxine (SYNTHROID) tablet 175 mcg 175 mcg Oral QDAY before breakfast lidocaine (LIDODERM) 5 % topical patch 2 patch 2 patch Topical QDAY micafungin (MYCAMINE) 100 mg in sodium chloride 0.9% (NS) 100 mL IVPB (MB+) 100 mg Intravenous Q24H* neomycin tablet 500 mg 500 mg Oral Q6H* pantoprazole DR (PROTONIX) tablet 40 mg 40 mg Oral QDAY(21) piperacillin/tazobactam (ZOSYN) 4.5 g/100 mL iso-osmotic IVPB 4.5 g Intravenous Q6H* rivaroxaban (XARELTO) tablet 20 mg 20 mg Oral QDAY w/breakfast vitamin A & D topical ointment Topical BID Continuous Infusions: PRN and Respiratory Meds:alum/mag hydroxide/simeth Q6H PRN, calcium carbonate Q4H PRN, diazePAM Q6H PRN, diphenhydrAMINE Q6H PRN OR [DISCONTINUED] diphenhydrAMINE Q6H PRN, fentaNYL citrate PF Q1H PRN, HYDROmorphone (DILAUDID) injection Q4H PRN, naloxone PRN, ondansetron (ZOFRAN) IV Q6H PRN, oxyCODONE Q3H PRN, pancrelipase 20,000 Units/ sodium bicarbonate 650 mg(#) PRN (Sharepoint Application 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 Rx) Physical Examination Vital Signs: Last Vital Signs: 24 Hour Range BP: 125/63 (01/03 1458) Temp: 36.3 C (97.4 F) (01/03 1458) Pulse: 102 (01/03 1458) Respirations: 18 PER MINUTE (01/03 1458) SpO2: 98 % (01/03 1458) O2 Delivery: None (Room Air) (01/03 1458) BP: (107-138)/(59-76) Temp: [36.3 C (97.4 F)-37.2 C (98.9 F)] Pulse: [96-112] Respirations: [18 PER MINUTE] SpO2: [95 %-99 %] O2 Delivery: None (Room Air) General appearance: obese, alert, oriented, NAD HENT: mucus membranes moist, no oral lesions/thrush Eyes: EOMI, normal conj Lungs: no wheezing, rhonchi, rales appreciated Heart: Regular rhythm, reg rate, with no murmur, rub, gallop Abdomen: obese, normal garcia sounds, soft, non-tender, non distended Ext: s/p left hemipelvectomy; incision w dressing in place. There are areas of necrosis- along pannus seem more dry today, and in vulvar area. Colostomy placed w/ stool in bag, stoma appears normal. Dressings just changed and dry without significant drainage from the anterior wounds, small amount from the posterior wound, no ely bleeding. Increased dependent edema/erythema in the mons/vulvar area today. Skin: no generalized rashes Psych: flat affect, depressed mood Lines: Indwelling melchor catheter Lab Review Hematology Recent Labs 01/01/18 0515 01/02/18 0325 01/03/18 0510 WBC 15.6* 13.1* 11.8* HGB 8.9* 8.6* 8.5* HCT 26.7* 24.7* 25.0* PLTCT 552* 503* 524* Chemistry Recent Labs 01/01/18 0515 01/02/18 0325 01/03/18 0510 NA 131* 129* 131* K 4.2 4.0 4.3 CL 98 97* 98 CO2 27 28 28 BUN 17 17 15 CR 0.78 0.65 0.64 GFR >60 >60 >60 GLU 347* 269* 180* CA 8.7 8.7 8.7 PO4 2.9 1.7* 2.2 Microbiology, Radiology and other Diagnostics Review Microbiology data reviewed. Chari Pedro DO Pager [phone] ID fellow * Chari Moon - 01/03/2018 2:55 PM CDT PHYSICAL THERAPY NOTE Patient was unavailable for physical therapy. Checked on pt 2 times today. Nurse was changing pt's bandage both times. Physical therapy will continue to follow and provide intervention as indicated. Therapist: Chari Moon Date: 01/03/2018 * Natasha Holt OT - 01/03/2018 1:38 PM CDT Formatting of this note may be different from the original. OCCUPATIONAL THERAPY PROGRESS NOTE Patient Name: Beata Kaiser Room/Bed: [place] [address] Admitting Diagnosis: Pelvic mass [R19.00] Pelvic mass in female Past Medical History: Diagnosis Date Anxiety Back pain Depression DM (diabetes mellitus) (HCC) Hypothyroidism Mobility Progressive Mobility Level: Sit on edge of bed Level of Assistance: Assist X1 Time Tolerated: 11-30 minutes Activity Limited By: Fatigue;Pain Subjective Pertinent Dx per Physician: 52 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 Don't lie flat for extended periods of time Pain / Complaints: Patient agrees to participate in therapy;Patient premedicated Pain Location: Other (Comment) ("tailbone") Pain Level Current: (Patient did not rate) Comments: Patient presented supine in bed upon therapist arrival; patient left supine in bed with RN in rom and all other needs addressed Objective Psychosocial Status: Willing and Cooperative to Participate Persons Present: Other (Comment) (family) ADL's Where Assessed: Edge of Bed Grooming Assist: Stand By Assist Grooming Deficits: Setup;Wash/Dry Hands;Wash/Dry Face;Teeth Care Functional Transfer Assist: Moderate Assist Functional Transfer Deficits: (Supine/EOB) Comment: Patient mod assist for supine/EOB transfers. Patient sat EOB for 20 minutes SBA to perform grooming tasks and reaching activity for dynamic sitting balance. After 20 min, patient requesting a rest then reported increased dizziness. Upon returning patient to supine, patient wound noted to have leaked a significant amount of fluid. RN notified. Activity Tolerance Endurance: 2/5 Tolerates 10-20 Minutes Exercise w/Multiple Rests Sitting Balance: 3+/5 Sits w/o UE Support for 30 Seconds or Greater Comment: Pt sat EOB for 20 mintues this date. Cognition Overall Cognitive Status: WFL to Adequately Complete Self Care Tasks Safely Education Persons Educated: Patient/Family Barriers To Learning: None Noted Teaching Methods: Verbal Instruction;Demonstration Patient Response: Verbalized and Demo Understanding Topics: Role of OT, Goals for Therapy Goal Formulation: With Patient/Family AM-PAC 6 Clicks Daily Activity Inpatient Putting on and taking off regular lower body clothes?: Total Bathing (Including washing, rinsing, drying): A Lot Toileting, which includes using toilet, bedpan, or urinal: Total Putting on and taking off regular upper body clothing: A Lot Taking care of personal grooming such as brushing teeth: None Eating meals?: A Little Daily Activity Raw Score: 13 Standardized (t-scale) score: 32.03 CMS 0-100% Score: 63.03 CMS G Code Modifier: CL Plan OT Frequency: 5x/week Next session: Trial commode transfer if appropriate/dynamic sitting balance activities Functional Transfer Goals Pt Will Transfer To Bedside Commode: w/ Moderate Assist Pt Will Transfer To Toilet: w/ Minimum Assist OT Discharge Recommendations OT Discharge Recommendations: Inpatient Setting Equipment Recommendations: BSC Additional Information: Recommend ongoing assistance for: Transfers, Bed mobility, Ambulation, In and out of house, Stairs, Toileting Therapist: JOHNATHON Olivarez [id number] Date: 01/03/2018 * Kalie Sibley MBBS - 01/03/2018 12:05 PM CDT Formatting of this note may be different from the original. Endocrinology Hospital Follow Up Visit Today's Date: 01/03/2018 Admission Date: 12/13/2017 Assessment: 1. 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 Enteral Nutrition Nutren 1.5 with a goal rate of 45 cc an hour 4. Obesity Class III 5. Hyperlipidemia On lovastatin 6. Chondorsarcoma Pelvis s/p hemipelvectomy Recommendations: Patient with inadequate blood sugar control yesterday as Diet advanced and eating better so we have made the following changes Start Novolog 6 units post meals as appetite improved Continue with NPH 15 units Q8h for the tube feeds - please hold if tube feeds are held Continue with Lantus 20 units QHS Continue with MDCF Please inform nutrition plan changes, as this will affect insulin requirements. Thank you for the consult , we will continue to follow Patient seen and discussed with Dr. Concepcion History of Present Illness Beata Kaiser is a 52 y.o. The patient states her appetite is improved and ate dinner and lunch last night. She denies hypoglycemia. She denies nausea or vomiting. She is having some surgical pain. No other new complaints. TFS running at goal this am Estimated Creatinine Clearance: 107.2 mL/min (based on SCr of 0.64 mg/dL). Allergies Allergies Allergen Reactions Cephalexin SEE COMMENTS Face gets red, feels really hot, has tolerated penicillin Review of Systems The patient denies headache, vision changes, shortness of air, chest pain, abdominal pain, nausea or vomiting. Medications Scheduled Meds: acetaminophen (TYLENOL) tablet 1,000 mg 1,000 mg Oral Q6H* buPROPion (WELLBUTRIN) tablet 100 mg 100 mg Oral TID busPIRone (BUSPAR) tablet 15 mg 15 mg Oral BID gabapentin (NEURONTIN) capsule 600 mg 600 mg Oral Q6H insulin aspart U-100 (NOVOLOG FLEXPEN) injection PEN 0-28 Units 0-28 Units Subcutaneous 5 X Day insulin aspart U-100 (NOVOLOG FLEXPEN) injection PEN 6 Units 6 Units Subcutaneous TID after meals insulin glargine (LANTUS SOLOSTAR, BASAGLAR) injection PEN 20 Units 20 Units Subcutaneous QHS insulin NPH (HUMULIN N KwikPen) injection PEN 15 Units 15 Units Subcutaneous Q8H * lactobacillus rhamnosus GG (CULTURELLE) 15 billion cell capsule 1 capsule 1 capsule Oral BID w/meals levothyroxine (SYNTHROID) tablet 175 mcg 175 mcg Oral QDAY before breakfast lidocaine (LIDODERM) 5 % topical patch 2 patch 2 patch Topical QDAY micafungin (MYCAMINE) 100 mg in sodium chloride 0.9% (NS) 100 mL IVPB (MB+) 100 mg Intravenous Q24H* neomycin tablet 500 mg 500 mg Oral Q6H* pantoprazole DR (PROTONIX) tablet 40 mg 40 mg Oral QDAY(21) piperacillin/tazobactam (ZOSYN) 4.5 g/100 mL iso-osmotic IVPB 4.5 g Intravenous Q6H* rivaroxaban (XARELTO) tablet 20 mg 20 mg Oral QDAY w/breakfast vitamin A & D topical ointment Topical BID Continuous Infusions: PRN and Respiratory Meds:alum/mag hydroxide/simeth Q6H PRN, calcium carbonate Q4H PRN, diazePAM Q6H PRN, diphenhydrAMINE Q6H PRN OR [DISCONTINUED] diphenhydrAMINE Q6H PRN, fentaNYL citrate PF Q1H PRN, HYDROmorphone (DILAUDID) injection Q4H PRN, naloxone PRN, ondansetron (ZOFRAN) IV Q6H PRN, oxyCODONE Q3H PRN, pancrelipase 20,000 Units/ sodium bicarbonate 650 mg(#) PRN (Sharepoint Application 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 Rx) Physical Examination Vital Signs: Last Vital Signs: 24 Hour Range BP: 110/64 (01/03 1005) Temp: 37 C (98.6 F) (01/03 1005) Pulse: 96 (01/03 1005) Respirations: 18 PER MINUTE (01/03 1005) SpO2: 96 % (01/03 1005) O2 Delivery: None (Room Air) (01/03 100) BP: (107-138)/(59-76) Temp: [36.6 C (97.8 F)-37.2 C (98.9 F)] Pulse: [96-112] Respirations: [18 PER MINUTE] SpO2: [93 %-99 %] O2 Delivery: None (Room Air) General appearance: alert, oriented, NAD, OG + CVS; RRR Resp: breathing comfortably Abd; Colostomy + Ext: s/p left hemipelvectomy Neuro: Alert Recent Labs 01/02/18 0211 01/02/18 0749 01/02/18 1230 01/02/18 1735 01/02/18 2028 01/02/18 2244 01/03/18 0200 01/03/18 0751 GLUPOC 288* 280* 315* 242* 317* 302* 236* 119* Lab Review Point of Care Testing (Last 24 hours) Glucose: (!) 180 (01/03/18 0510) POC Glucose (Download): (!) 119 (01/03/18 0751) Recent Labs 01/01/18 0515 01/02/18 0325 01/02/18 0945 01/03/18 0510 NA 131* 129* -- 131* K 4.2 4.0 -- 4.3 CL 98 97* -- 98 CO2 27 28 -- 28 GAP 6 4 -- 5 BUN 17 17 -- 15 CR 0.78 0.65 -- 0.64 GLU 347* 269* -- 180* CA 8.7 8.7 -- 8.7 MG 2.0 1.9 -- 1.8 PO4 2.9 1.7* -- 2.2 TSH -- -- 12.590* -- Recent Labs 12/31/17 1657 01/01/18 0515 01/02/18 0325 01/03/18 0510 WBC -- 15.6* 13.1* 11.8* HGB -- 8.9* 8.6* 8.5* HCT -- 26.7* 24.7* 25.0* PLTCT -- 552* 503* 524* TNI 0.01 -- -- -- Estimated Creatinine Clearance: 107.2 mL/min (based on SCr of 0.64 mg/dL). Vitals: 12/18/17 0600 12/27/17 0654 12/30/17 0820 Weight: 92.5 kg (203 lb 14.8 oz) 98.5 kg (217 lb 2.5 oz) 98.5 kg (217 lb 2.5 oz ) Thyroid Studies Lab Results Component Value Date/Time TSH 12.590 (H) 01/02/2018 09:45 AM No results found for: FREET3, [id number], THYBINDGLB Pertinent radiology images viewed. Impression: RAMIREZ Soto 01/03/2018 Endocrine Associated attestation - Serenity Concepcion MD - 01/03/2018 6:22 PM CDT Formatting of this note may be different from the original. ATTESTATION I personally performed the banuelos portions of the E/M visit, discussed case with resident and concur with resident documentation of history, physical exam, assessment, and treatment plan unless otherwise noted. Glucose, POC Date/Time Value Ref Range Status 01/03/2018 1653 221 (H) 70 - 100 MG/DL Final 01/03/2018 1444 168 (H) 70 - 100 MG/DL Final 01/03/2018 0751 119 (H) 70 - 100 MG/DL Final 01/03/2018 0200 236 (H) 70 - 100 MG/DL Final 01/02/2018 2244 302 (H) 70 - 100 MG/DL Final 01/02/2018 2028 317 (H) 70 - 100 MG/DL Final 01/02/2018 1735 242 (H) 70 - 100 MG/DL Final 01/02/2018 1230 315 (H) 70 - 100 MG/DL Final We will increase Novolog to 8 units post meal dosing. Monitor use of Novolog high dose correction factor. NPH 15 units every 8 hour while on enteral feeds; stop if enteral feeds are interrupted. Lantus 20 units SQ qhs. Staff name: Serenity Concepcion MD Date: 01/03/2018 * Jasper Betts RN - 01/03/2018 11:03 AM CDT Inpatient Pain Management Nurses - Clinical [facility] - Follow -Up Primary team is responsible for entering orders. Suggested Plan for the Day: Change acetaminophen 1000 mg PO q 8 hours, [id number] - Patient has been at ~ 4000 mg daily for many days Change gabapentin 800 mg PO q 12 hours, [id number] - improve medication that patient indicates helps with phantom limb pain and facilitate the larger dose being given just before bedtime. Gabapentin 600 mg PO q 12 hours, [id number] - maintain a 400 mg/day dose increase Discontinue fentanyl IV - not needed with oxycodone being used for analgesia , continue hydromorphone IV if need for breakthrough Oxycodone SR 20 mg PO q HS, not to be given within an hour of oxycodone - provide a longer analgesic for night time to improve sleep hygiene and prevent end of dose failure with short acting opioid Anticipated D/C Planning: Too early to determine S: Patient's current pain intensity: moderate with periods of uncontrolled pain during sleeping hours Clinically Aligned Pain Assessment Comfort: Tolerable with discomfort Change in pain: Getting better Pain control: Partially effective Function: Can do most things, but pain gets in the way of some things Sleep: Awake with occasional pain O: Oral morphine equivalent (OME) used over past 24 hours (7:01 AM - 7:00 AM)- ~ 140 mg Current Analgesic Regimen, OME: Used no doses of hydromorphone IV Used 7 doses of oxycodone 20 mg ~ 140 mg Impression: Patient having difficulties at night waking with exacerbated pain of mainly phantom pain and incisional pain but moderate surgical abdominal pain as well. Please see above for suggestions of improving pain regimen. Please call with questions/concerns. Jasper Betts, MSN, RN- Clinical Nurse Coordinator Pain Management [phone] Team pager [phone] * Hugh Salinas MD - 01/03/2018 10:37 AM CDT Formatting of this note may be different from the original. General Progress Note Name: Beata Kaiser Today's Date: 01/03/2018 Admission Date: 12/13/2017 LOS: 21 days Assessment/Plan: Principal Problem: Pelvic mass Active Problems: Pelvic mass in female Metabolic acidosis Acute blood loss as cause of postoperative anemia Depression Anxiety DM (diabetes mellitus) (HCC) Hypothyroidism Hemorrhagic shock (HCC) Chronic pain 52 y.o.femalewith Hx of hypothyroidism and non-insulin dependent diabetes mellitus who presented to [facility] on 12/13/17 for scheduled left hemipelvectomy for pelvic chondrosarcoma. Pt underwent open biopsy of left pelvis previously on 11/29. Pt underwent scheduled hemipelvectomy on 12/14/17. Medicine had been following for hyponatremia. -Stable Hyponatremia, would continue to monitor -TPN discontinued, now on tubefeedings + oral intake -Serum cortisol noted @ 15 a couple of days ago. Improved glycemic control. We will defer to endocrinology on optimizing insulin therapy as she transitions Continue fluid restriction at 1500mL per day Minimize free water consumption Medicine consult team will continue to follow Subjective Beata Kaiser is a 52 y.o. female. Patient states that she had some abdominal distention last night but that it has resolved. She has ordered breakfast and is feeling good. Medications Scheduled Meds: acetaminophen (TYLENOL) tablet 1,000 mg 1,000 mg Oral Q6H* buPROPion (WELLBUTRIN) tablet 100 mg 100 mg Oral TID busPIRone (BUSPAR) tablet 15 mg 15 mg Oral BID gabapentin (NEURONTIN) capsule 600 mg 600 mg Oral Q6H insulin aspart U-100 (NOVOLOG FLEXPEN) injection PEN 0-28 Units 0-28 Units Subcutaneous 5 X Day insulin aspart U-100 (NOVOLOG FLEXPEN) injection PEN 6 Units 6 Units Subcutaneous TID after meals insulin glargine (LANTUS SOLOSTAR, BASAGLAR) injection PEN 20 Units 20 Units Subcutaneous QHS insulin NPH (HUMULIN N KwikPen) injection PEN 15 Units 15 Units Subcutaneous Q8H * lactobacillus rhamnosus GG (CULTURELLE) 15 billion cell capsule 1 capsule 1 capsule Oral BID w/meals levothyroxine (SYNTHROID) tablet 175 mcg 175 mcg Oral QDAY before breakfast lidocaine (LIDODERM) 5 % topical patch 2 patch 2 patch Topical QDAY micafungin (MYCAMINE) 100 mg in sodium chloride 0.9% (NS) 100 mL IVPB (MB+) 100 mg Intravenous Q24H* neomycin tablet 500 mg 500 mg Oral Q6H* pantoprazole DR (PROTONIX) tablet 40 mg 40 mg Oral QDAY(21) piperacillin/tazobactam (ZOSYN) 4.5 g/100 mL iso-osmotic IVPB 4.5 g Intravenous Q6H* rivaroxaban (XARELTO) tablet 20 mg 20 mg Oral QDAY w/breakfast vitamin A & D topical ointment Topical BID Continuous Infusions: PRN and Respiratory Meds:alum/mag hydroxide/simeth Q6H PRN, calcium carbonate Q4H PRN, diazePAM Q6H PRN, diphenhydrAMINE Q6H PRN OR [DISCONTINUED] diphenhydrAMINE Q6H PRN, fentaNYL citrate PF Q1H PRN, HYDROmorphone (DILAUDID) injection Q4H PRN, naloxone PRN, ondansetron (ZOFRAN) IV Q6H PRN, oxyCODONE Q3H PRN, pancrelipase 20,000 Units/ sodium bicarbonate 650 mg(#) PRN (Sharepoint Application 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 Rx) Review of Systems: A 14 point review of systems was negative except for: Gastrointestinal: positive for abdominal distention Objective: Vital Signs: Last Filed Vital Signs: 24 Hour Range BP: 110/64 (01/03 1005) Temp: 37 C (98.6 F) (01/03 1005) Pulse: 96 (01/03 1005) Respirations: 18 PER MINUTE (01/03 1005) SpO2: 96 % (01/03 1005) O2 Delivery: None (Room Air) (01/03 1005) BP: (107-138)/(59-76) Temp: [36.6 C (97.8 F)-37.2 C (98.9 F)] Pulse: [96-112] Respirations: [18 PER MINUTE] SpO2: [93 %-99 %] O2 Delivery: None (Room Air) Intensity Pain Scale 0-10 (Pain 1): 3 (01/03/18 1017) Vitals: 12/18/17 0600 12/27/17 0654 12/30/17 0820 Weight: 92.5 kg (203 lb 14.8 oz) 98.5 kg (217 lb 2.5 oz) 98.5 kg (217 lb 2.5 oz ) Intake/Output Summary: (Last 24 hours) Intake/Output Summary (Last 24 hours) at 01/03/18 1037 Last data filed at 01/03/18 1017 Gross per 24 hour Intake 3508 ml Output 3640 ml Net -132 ml Stool Occurrence: 1 Physical Exam General: Alert, cooperative, no distress, appears stated age Nose: NG tube/dobhoff in left nare Lungs: Clear to auscultation bilaterally Heart: Regular rate and rhythm, S1, S2 normal, no murmur, click rub or gallop Abdomen: ostomy with brown stool in place without leakage, no ttp Extremities: no edema Lab Review Pertinent labs reviewed Point of Care Testing (Last 24 hours) Glucose: (!) 180 (01/03/18 0510) POC Glucose (Download): (!) 119 (01/03/18 0718) Radiology and other Diagnostics Review: Pertinent radiology reviewed. Hugh Salinas MD Pager [phone] * Adrienne Carlos, RD - 01/03/2018 8:59 AM CDT Nutrition Support Service (NSS) Sign off Note Comment: POD#4. Patient tolerated advancement back to regular diet textures yesterday afternoon. PN support discontinued yesterday afternoon as well. EN feeds continue around the clock- Nutren 1.5 @ 45ml/hr goal rate via corpak (tip in duodenum); EN had resumed ~22:30 12/31 at 30ml/hr, advancing to goal rate 45ml /hr by 06:30 01/01. PN insulin had been increased from 6 units to 10 units Wednesday to help manage post-op hyperglycemia (Endocrine following). POC glucose check this AM now wnl (off PN); NPH increased from 12 to 15 units yesterday. Current Diet Order: Consistent Carbohydrate (60g/meal) (01/02) Current EN Order: Nutren 1.5 @ 45ml/hr continuous; providing 1485 kcal, 67g protein, 752ml free H2O (assuming 2-hr hold for synthroid daily). H2O bolus 30ml q4hr. Estimated Kcal Needs: 1660 (30 kcals/kg per DBW 55.3 kg due to large surgical wound) Estimated Protein Needs: 100-120(1.8-2.2g/kg desired wt of 55.3kg.) A/P: Beata Kaiser is a 52 y.o. 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 Pt's weight wentdown 28# or 12% s/p removal of her leg, 203# (12/18). Latest weight shows a 14# increase in 9 days, likely due to fluid. Pt had continued to havedecreased PO intake, with average PO intake of 600 kcals, 33 gm per day per calorie count. Yet Per fellow RD, all of Pt's intake of [place] shakes may not be included in the number. Noted nocturnal TFs ordered 12/27, yet not started until 12/28 due to trouble obtaining post- pyloric corpak placement. Pthad also been having issues with stool soilage prohibiting wound healing so team proceeded with colostomy placement. NSS consulted 12/29 for TPN to start 12 AM after pt returns from OR, due to "High serous drain output with low albumin with concern for protein malnutrition and inability for fluid to stay intravascular. Patient undergoing colostomy 12/30 and will likely be NPO or diet restricted for several days. Need nutrition optimization for wound healing of both large hemipelvectomy wound and new colostomy." NSS RD agreed with starting TPN to bridge Pt thru this next surgery and possible post-op ileus. Pt's nutritional status has been sub-optimal for most of her stay (HD#17 at time of consult). Now s/p ex-lap, OBED, diverting end colostomy placement 12/30. Patient had previously been drinking protein shakes throughout the day and was on nocturnal EN support (Isosource 1.5 @ 60ml/hr) via corpak (tip in stomach). Held at MN AM for OR. PN order had been placed 12/29 in anticipation for infusion post-op /once PICC placed, however patient did not have PICC placed until back on unit ~ 18:30 per RN. Thus first PN order was not infused. PN started ~20:30 12/30. 12/31 NSS had spoken with Ortho & Surg-Onc regarding various modes of nutrition & discharge planning. Patient was cleared to resume CLD 12/31 AM. Surg-Onc also ordered EN to be resumed at 20ml/hr via corpak same day (not compressed/ nocturnal regimen for now); titrating up slowly with eventual plan to return to nocturnal feeds & diet advancement. PN support was to continue until patient stable on goal EN regimen again. NSS spoke with Ortho pharmacist regarding hyperglycemia. . Patient received ~3 bags of PN support total, providing 1348kcal (81% goal), 110g protein (100% goal) per bag. Now that patient's PN support discontinued with patient demonstrating signs of EN & PO intake tolerance with +ostomy output & no signs of post-op ileus, will sign off to unit RD for further monitoring. Recommendations: Continue Consistent Carbohydrate (60g/meal); encourage protein shakes between meals, made with [place] Breakfast Essentials (NO SUGAR ADDED), skim milk, and 2 Protein powders (to provide 230kcal and 25 grams protein per shake) . If team ready to compress to nocturnal regimen, recommend continuing with fiber-free formula for now- Nutren 1.5, goal rate 75ml/hr x 12hr. Prosource 2 packs/day. Would provide 1470kcal, 91g protein, 684ml free H2O. H2O boluses per team. NSS signing off to unit RD for further nutrition care. Adrienne Carlos RD, LD, [facility] *[phone] * Feli Winkler MD - 01/03/2018 8:48 AM CDT Formatting of this note may be different from the original. Surgical Progress Note Today's Date: 01/03/2018 Name: Beata Kaiser Admission Date: 12/13/2017 LOS: 21 days Assessment/Plan: 52F s/p left hemipelvectomy, now with wound soilage, s/p diverting colostomy 12/30/17 Principal Problem: Pelvic mass Active Problems: Pelvic mass in female Metabolic acidosis Acute blood loss as cause of postoperative anemia Depression Anxiety DM (diabetes mellitus) (HCC) Hypothyroidism Hemorrhagic shock (HCC) Chronic pain -Tolerating diet -Good ostomy function -Continue care per primary team -Colorectal surgery will sign off, please page #[phone] with further questions -Follow-up with Dr. Mccollum after discharge Discussed w Dr. Mccollum Subjective: No acute events over night. No nausea or vomiting, tolerating diet. No ostomy function. Objective: GEN: alert and oriented no acute distress HEENT: NCAT, EOMI, no scleral icterus CARDIO: RRR, peripheral pulses wnl PULM: normal work of breathing, no stridor, on RA ABD: soft, NTND, incision c/d/i w ceci in place, ostomy pink with soft brown stool and gas in bag. EXT: LLE surgically absent NEURO: motor and sensation grossly intact INTEG: LLE dressing in place PSYCH: cooperative, appropriate mood and affect Vital Signs: Last Filed Vital Signs: 24 Hour Range BP: 107/59 (01/030) Temp: 37.1 C (98.8 F) (01/03 500) Pulse: 101 (01/03 500) Respirations: 18 PER MINUTE (01/03 500) SpO2: 98 % (01/03 500) O2 Delivery: None (Room Air) (01/03 500) BP: (107-138)/(59-76) Temp: [36.4 C (97.5 F)-37.2 C (98.9 F)] Pulse: [101-112] Respirations: [18 PER MINUTE] SpO2: [93 %-99 %] O2 Delivery: None (Room Air) Intensity Pain Scale 0-10 (Pain 1): (not recorded) Intake/Output Summary : (Last 24 hours) Intake/Output Summary (Last 24 hours) at 01/03/18 0849 Last data filed at 01/03/18 0636 Gross per 24 hour Intake 3508 ml Output 3200 ml Net 308 ml Feli Winkler MD Pager [phone] * César Davis MD - 01/03/2018 6:22 AM CDT Formatting of this note may be different from the original. Subjective: No acute events overnight. Pain well-controlled. Objective: Blood pressure 107/59, pulse 101, temperature 37.1 C (98.8 F), height 162.6 cm (64"), weight 98.5 kg (217 lb 2.5 oz), SpO2 97 %. General: AAOx3, NAD Cardiac: Tachycardic Respirations: Unlabored Extremities: LLE hemipelvectomy, dressings with some dry serous drainage posteriorly No results for input(s): PTT, INR in the last 72 hours. CBC w/Diff Lab Results Component Value Date/Time WBC 11.8 (H) 01/03/2018 05:10 AM HGB 8.5 (L) 01/03/2018 05:10 AM HCT 25.0 (L) 01/03/2018 05:10 AM PLTCT 524 (H) 01/03/2018 05:10 AM Basic Metabolic Profile Lab Results Component Value Date/Time NA 131 (L) 01/03/2018 05:10 AM K 4.3 01/03/2018 05:10 AM CL 98 01/03/2018 05:10 AM CO2 28 01/03/2018 05:10 AM GAP 5 01/03/2018 05:10 AM Lab Results Component Value Date/Time BUN 15 01/03/2018 05:10 AM CR 0.64 01/03/2018 05:10 AM GLU 180 (H) 01/03/2018 05:10 AM A/P: 52 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 mobility aide as part of the ongoing physical therapy plan of care. Aide: Harry Alfonso Date: 01/02/2018 * Ramonita Land - 01/02/2018 1:52 PM CDT PHYSICAL THERAPY NOTE Patient attempted x2 for physical therapy this date. 1000: Patient eating breakfast with request for therapy to return back later today. 1340: Patient declined transferring to sit edge of bed stating she had increased drainage from site when sitting up with OT earlier today and does not want to go through that again this afternoon. Patient became tearful however agreeable to bed level exercises. Mobility aide present to perform with patient. Physical therapy will continue to follow and provide intervention as indicated. Therapist: Ramonita Land Date: 01/02/2018 * Marco Payne MD - 01/02/2018 1:43 PM CDT Formatting of this note may be different from the original. Endocrinology Hospital Follow Up Visit Today's Date: 01/02/2018 Admission Date: 12/13/2017 Assessment: 1. 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 Enteral and parenteral Nutrition Nutren 1.5 with a goal rate of 45 cc an hour TPN with dextrose 120 g 4. Obesity Class III 5. Hyperlipidemia On lovastatin 6. Chondorsarcoma Pelvis s/p hemipelvectomy Recommendations: Glucose values today remain above target Insulin orders in place over the past 24 hours. Lantus continue 20 units HS daily NPH 12 units every 8 hours. This should be stopped if tube feedings are stopped. Novolog correction is not correction the hyperglycemia so we will increase to high dose starting at 180 mg/dL TPN solution regular insulin 1 unit per 12 grams of carobohydrate=10 units per bag We were informed the RN that primary team was likely going to stop TPN The glucose values remain out of target Given the liklihood of TPN stopping and that it is contributing to the elevated glucose I am going to make a conservative increase in NPH only from 12 to 15 until I see if TPN is going to be stopped. History of Present Illness Beata Kaiser is a 52 y.o. The patient is awake this morning and appropriate. She denies hypoglycemia. She denies nausea or vomiting. She is having some surgical pain. No other new complaints. Estimated Creatinine Clearance: 107.2 mL/min (based on SCr of 0.65 mg/dL). Allergies Allergies Allergen Reactions Cephalexin SEE COMMENTS Face gets red, feels really hot, has tolerated penicillin Review of Systems The patient denies headache, vision changes, shortness of air, chest pain, abdominal pain, nausea or vomiting. Medications Scheduled Meds: acetaminophen (TYLENOL) tablet 1,000 mg 1,000 mg Oral Q6H* buPROPion (WELLBUTRIN) tablet 100 mg 100 mg Oral TID busPIRone (BUSPAR) tablet 15 mg 15 mg Oral BID gabapentin (NEURONTIN) capsule 600 mg 600 mg Oral Q6H insulin aspart U-100 (NOVOLOG FLEXPEN) injection PEN 0-28 Units 0-28 Units Subcutaneous 5 X Day insulin glargine (LANTUS SOLOSTAR, BASAGLAR) injection PEN 20 Units 20 Units Subcutaneous QHS insulin NPH (HUMULIN N KwikPen) injection PEN 12 Units 12 Units Subcutaneous Q8H * lactobacillus rhamnosus GG (CULTURELLE) 15 billion cell capsule 1 capsule 1 capsule Oral BID w/meals levothyroxine (SYNTHROID) tablet 175 mcg 175 mcg Oral QDAY before breakfast lidocaine (LIDODERM) 5 % topical patch 2 patch 2 patch Topical QDAY micafungin (MYCAMINE) 100 mg in sodium chloride 0.9% (NS) 100 mL IVPB (MB+) 100 mg Intravenous Q24H* neomycin tablet 500 mg 500 mg Oral Q6H* pantoprazole DR (PROTONIX) tablet 40 mg 40 mg Oral QDAY(21) piperacillin/tazobactam (ZOSYN) 4.5 g/100 mL iso-osmotic IVPB 4.5 g Intravenous Q6H* rivaroxaban (XARELTO) tablet 20 mg 20 mg Oral QDAY w/breakfast vitamin A & D topical ointment Topical BID Continuous Infusions: Adult Parenteral Nutrition (TPN) 65 mL/hr at 01/01/184 PRN and Respiratory Meds:alum/mag hydroxide/simeth Q6H PRN, calcium carbonate Q4H PRN, diazePAM Q6H PRN, diphenhydrAMINE Q6H PRN OR [DISCONTINUED] diphenhydrAMINE Q6H PRN, fentaNYL citrate PF Q1H PRN, HYDROmorphone (DILAUDID) injection Q4H PRN, naloxone PRN, ondansetron (ZOFRAN) IV Q6H PRN, oxyCODONE Q3H PRN, pancrelipase 20,000 Units/ sodium bicarbonate 650 mg(#) PRN (Sharepoint Application 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 Rx) Physical Examination Vital Signs: Last Vital Signs: 24 Hour Range BP: 128/75 (01/02 954) Temp: 36.4 C (97.5 F) (01/02 954) Pulse: 105 (01/02 954) Respirations: 18 PER MINUTE (01/02 954) SpO2: 97 % (01/02 954) O2 Delivery: None (Room Air) (01/02 954) BP: (105-150)/(61-75) Temp: [36.4 C (97.5 F)-36.9 C (98.5 F)] Pulse: [99-109] Respirations: [16 PER MINUTE-18 PER MINUTE] SpO2: [94 %-97 %] O2 Delivery: None (Room Air) General appearance: alert, oriented, NAD Recent Labs 01/01/18 0854 01/01/18 1336 01/01/18 1612 01/01/18 1748 01/01/18 2115 01/02/18 0211 01/02/18 0749 01/02/18 1230 GLUPOC 363* 386* 354* 284* 289* 288* 280* 315* Lab Review Point of Care Testing (Last 24 hours) Glucose: (!) 269 (01/02/18 0325) POC Glucose (Download): (!) 315 (01/02/18 1230) Recent Labs 12/31/17 0330 12/31/17 1010 01/01/18 0515 01/02/18 0325 01/02/18 0945 NA 134* 135* 131* 129* -- K 4.3 3.9 4.2 4.0 -- CL 100 102 98 97* -- CO2 25 24 27 28 -- GAP 9 9 6 4 -- BUN 15 15 17 17 -- CR 0.86 0.78 0.78 0.65 -- GLU 255* 306* 347* 269* -- CA 8.4* 8.0* 8.7 8.7 -- MG 2.0 -- 2.0 1.9 -- PO4 4.1* -- 2.9 1.7* -- TSH -- -- -- -- 12.590* Recent Labs 12/31/17 1010 12/31/17 1657 01/01/18 0515 01/02/18 0325 WBC 13.3* -- 15.6* 13.1* HGB 6.6* -- 8.9* 8.6* HCT 19.4* -- 26.7* 24.7* PLTCT 548* -- 552* 503* TNI -- 0.01 -- -- Estimated Creatinine Clearance: 107.2 mL/min (based on SCr of 0.65 mg/dL). Vitals: 12/18/17 0600 12/27/17 0654 12/30/17 0820 Weight: 92.5 kg (203 lb 14.8 oz) 98.5 kg (217 lb 2.5 oz) 98.5 kg (217 lb 2.5 oz ) Thyroid Studies Lab Results Component Value Date/Time TSH 12.590 (H) 01/02/2018 09:45 AM No results found for: FREET3, [id number], THYBINDGLB Pertinent radiology images viewed. Impression: Marco Payne MD 01/02/2018 Endocrine * Amanda Juares - 01/02/2018 12:30 PM CDT Pt's dressing was saturated through at 1110, bed was wet. Dressing and bedding both changed. When RN rounded on patient not even an hour later, dressing was completely saturated again. Concern for skin integrity. was paged, informed and aware of findings. Per MD they are expecting the drainage to continue. Confirmed to continue dressing the site the same with xeroform, gauze, abdominal pads, and hypafix tape. No concern at this time. Will continue to monitor and notify for any changes. * ScooterChristin, OT - 01/02/2018 11:34 AM CDT Formatting of this note may be different from the original. OCCUPATIONAL THERAPY PROGRESS NOTE Patient Name: Beata Kaiser Room/Bed: ET6593/01 Admitting Diagnosis: Pelvic mass [R19.00] Pelvic mass in female Past Medical History: Diagnosis Date Anxiety Back pain Depression DM (diabetes mellitus) (HCC) Hypothyroidism Mobility Progressive Mobility Level: Sit on edge of bed Level of Assistance: Assist X1 Time Tolerated: 11-30 minutes Activity Limited By: Fatigue;Pain Subjective Pertinent Dx per Physician: 52F s/p left hemipelvectomy, now with wound soilage , s/p diverting colostomy 12/30/17 Precautions: Falls L LE Precautions: LLE Non-Weight Bearing Comments: Lay on right side as much as possible for edema management per Ortho note 12/16; Don't lie flat for extended periods of time Pain / Complaints: Patient agrees to participate in therapy;Patient premedicated Pain Location: Left;Hip;Buttocks Pain Level Current: 4 Moderate pain Comments: Draining wound noted. RN changed pad just prior to OT visit, needing to be changed after sitting upright. RN to contact team with update. Objective Persons Present: Sister (RN contacted re: wound) ADL's Where Assessed: Edge of Bed Functional Transfer Assist: Moderate Assist (Sup> Sit EOB; Sit>sup) Comment: Pt requires extra time and cues for [id number] process. Limited by pain and weakness. Assist to move arm under body once sidelying to boost torso into upright posture. Pt used trapeze and bed assist to return to sidelying on wedge. OT present to assist with pad change as needed Activity Tolerance Comment: Pt sat EOB for 20 min this date, sister took pictures for family. Pt did not feel comfortable releasing either hand for long periods of time, Adls defered this session. Denied dizziness Education Persons Educated: Patient Topics: (Reviewed importance of ongoing Bed level exercise) Plan Progress: Slow Progress, Decreased Activity Tolerance (Next visit: Ax2 for stand trial vs EOB balance training) OT Frequency: 5x/week Functional Transfer Goals Pt Will Transfer To Bedside Commode: w/ Moderate Assist Pt Will Transfer To Toilet: w/ Minimum Assist OT Discharge Recommendations OT Discharge Recommendations: Inpatient Setting Equipment Recommendations: BSC Additional Information: Recommend ongoing assistance for: Transfers, Bed mobility, Ambulation, In and out of house, Stairs, Toileting Therapist: Christin Helms OT Date: 01/02/2018 * Brannon See MD - 01/02/2018 11:03 AM CDT Formatting of this note may be different from the original. IM consult Progress Note Today's Date: 01/02/2018 Admission Date: 12/13/2017 LOS: 20 days Principal Problem: Pelvic mass Active Problems: Pelvic mass in female Metabolic acidosis Acute blood loss as cause of postoperative anemia Depression Anxiety DM (diabetes mellitus) (HCC) Hypothyroidism Hemorrhagic shock (HCC) Chronic pain Beata Lema a 52 y.o.femaleHx of hypothyroidism and non-insulin dependent diabetes mellitus who presented to [facility] on 12/13/17 for scheduled left hemipelvectomy for chondrosarcoma. Pt underwent open biopsy of left pelvis previously on 11/29. Pt underwent scheduled hemipelvectomy on 12/14/17. Medicine had been following for hyponatremia. -Was improving, but now serum sodium has declined last 2 days -Patient on TPN with hyperglycemia -Per primary team, patient will be converted back to tube feeds -With new elevated blood sugars, it is likely a component of pseudohyponatremia complicating the picture. Corrected Na approximately 131. -Serum cortisol noted @ 15 a couple of days ago Check urine lites, urine osmolality. Improved glycemic control. We will defer to endocrinology on optimizing insulin therapy as she transitions from TPN to tube feeds Continue fluid restriction. Would recommend more restrictive regimen down to 1500 mls per day Minimize free water consumption Medicine consult team will continue to follow Please call IM consult pager [phone]/04 for questions or concerns. Will be answered by IM attending on-call after-hours We were asked to evaluate Ms. Kaiser for hyponatremia. No acute overnight events reported. No fever or chills overnight. Pain improving. Denies cough or chest pain. Tolerating TPN Medications Current medications reviewed. Objective Intake/Output Summary: (Last 24 hours) Intake/Output Summary (Last 24 hours) at 01/02/18 1106 Last data filed at 01/02/18 0609 Gross per 24 hour Intake 2861 ml Output 2420 ml Net 441 ml Physical Exam Vitals: Vitals flow sheet reviewed. Blood pressure 128/75, pulse 105, temperature 36.4 C (97.5 F), height 162.6 cm (64"), weight 98.5 kg (217 lb 2.5 oz), SpO2 97 %. Physical examination: HEENT: normal atraumatic, no jvd RESP: Clear Auscultation CV: Regular rate and rhythm ABD: No Distention EXT: S/P LLE hemipelvectomy Labs: Labs reviewed. Pertinent trends as follows: Recent Labs 12/31/17 1010 01/01/18 0501/02/18 0325 HGB 6.6* 8.9* 8.6* , Recent Labs 12/31/17 0330 12/31/17 1010 01/01/18 0515 01/02/18 0325 CR 0.86 0.78 0.78 0.65 , Recent Labs 12/31/17 0330 12/31/17 1010 01/01/18 0515 01/02/18 0325 GLU 255* 306* 347* 269* , No results for input(s): INR in the last 72 hours., Recent Labs 12/31/17 0330 12/31/17 1010 01/01/18 0515 01/02/18 0325 K 4.3 3.9 4.2 4.0 , Recent Labs 12/31/17 0330 12/31/17 1010 01/01/18 0515 01/02/18 0325 NA 134* 135* 131* 129* Studies: Pertinent radiological and other studies reviewed Brannon See MD * Fareed Holcomb MD - 01/02/2018 9:44 AM CDT Formatting of this note may be different from the original. Surgical Progress Note Today's Date: 01/02/2018 Name: Beata Kaiser Admission Date: 12/13/2017 LOS: 20 days Assessment/Plan: 52F s/p left hemipelvectomy, now with wound soilage, s/p diverting colostomy 12/30/17 Principal Problem: Pelvic mass Active Problems: Pelvic mass in female Metabolic acidosis Acute blood loss as cause of postoperative anemia Depression Anxiety DM (diabetes mellitus) (HCC) Hypothyroidism Hemorrhagic shock (HCC) Chronic pain -Okay to advance to regular diet. Tolerating FLD -Bowel regimen okay -Okay to advance to goal tube feeds -Recommend to discontinue TPN -colostomy teaching -rest of care per primary team Discussed w Dr. Barrios Subjective: No acute events over night. No nausea or vomiting, tolerating diet. No ostomy function. Objective: GEN: alert and oriented no acute distress HEENT: NCAT, EOMI, no scleral icterus CARDIO: RRR, peripheral pulses wnl PULM: normal work of breathing, no stridor, on RA ABD: soft, NTND, incision c/d/i w ceci in place, ostomy w bowel sweat and gas , No stool, ostomy pink/edematous EXT: no c/c/e, warm, well-perfused NEURO: motor and sensation grossly intact INTEG: warm, dry, appropriate for age and race PSYCH: cooperative, appropriate mood and affect Vital Signs: Last Filed Vital Signs: 24 Hour Range BP: 123/61 (01/02 603) Temp: 36.9 C (98.5 F) (01/02 603) Pulse: 109 (01/02 603) Respirations: 17 PER MINUTE (01/02 603) SpO2: 94 % (01/02 603) O2 Delivery: None (Room Air) (01/02 603) BP: (105-150)/(61-75) Temp: [36.6 C (97.8 F)-36.9 C (98.5 F)] Pulse: [99-109] Respirations: [16 PER MINUTE-18 PER MINUTE] SpO2: [93 %-97 %] O2 Delivery: None (Room Air) Intensity Pain Scale 0-10 (Pain 1): (not recorded) Intake/Output Summary : (Last 24 hours) Intake/Output Summary (Last 24 hours) at 01/02/18 0944 Last data filed at 01/02/18 0609 Gross per 24 hour Intake 3111 ml Output 2770 ml Net 341 ml Fareed Holcomb MD Pager [phone] Associated attestation - Manny Barrios MD - 01/02/2018 11:29 AM CDT Formatting of this note may be different from the original. ATTESTATION I personally performed the banuelos portions of the E/M visit, discussed case with resident and concur with resident documentation of history, physical exam, assessment, and treatment plan unless otherwise noted. Staff name: Manny Barrios MD Date: 01/02/2018 * César Davis MD - 01/02/2018 7:57 AM CDT Formatting of this note may be different from the original. Subjective: No acute events overnight. Pain well-controlled. Denies chest pain or shortness of breath. Objective: Blood pressure 123/61, pulse 109, temperature 36.9 C (98.5 F), height 162.6 cm (64"), weight 98.5 kg (217 lb 2.5 oz), SpO2 94 %. General: AAOx3, NAD Cardiac: Tachycardic Respirations: Unlabored Extremities: LLE hemipelvectomy, dressings with some dry serous drainage posteriorly No results for input(s): PTT, INR in the last 72 hours. 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 -PT/OT -Diet: FLD -Melchor catheter x4 wks minimum -Maintain dressings, ortho to manage - reinforce as needed -Orals for pain control, gabapentin - Nursing pain management consult -Xarelto for DVT -Please do not leave flat for extended periods of time, patient to lay onto her right side as much as possible -Acute blood loss anemia - transfused yesterday, Hgb 8.6 today -Rehab consult- appreciate recs -Strongly recommend patient be discharged to IRF instead of SNF, would prefer [facility] -Psych, HUMAN [employer] RECEPTIONIST psych and psychology consults for coping, depression - appreciate assistance -Endocrine consult for blood sugar management - appreciate recs -ID consult - Zosyn, micafungin -Nutrition following for optimization - TPN (continue for now), tube feeds -General Surgery consult - colostomy 12/30 Dispo: Continue inpatient care César Davis MD [id number] * Amanda Juares - 01/01/2018 4:29 PM CDT BS at 1330 was 386, recheck BS at 1610 was 354. called, recommended calling endocrinology. Spoke with model maker plastic, per today's progress note insulin changes ordered to be made to tonight's bag of TPN at 2030, until that begins, ok to give an increased evening dose of NPH insulin (change from 12 to 16 units) with sliding scale per meal time BS. Will continue to monitor and notify as appropriate. * Amanda Juares - 01/01/2018 3:41 PM CDT I received a full report and assume care for this patient for the remainder of the shift. * Feli Winkler MD - 01/01/2018 10:36 AM CDT Formatting of this note may be different from the original. Surgical Progress Note Today's Date: 01/01/2018 Name: Beata Kaiser Admission Date: 12/13/2017 LOS: 19 days Assessment/Plan: 52F s/p left hemipelvectomy, now with wound soilage, s/p diverting colostomy 12/30/17 Principal Problem: Pelvic mass Active Problems: Pelvic mass in female Metabolic acidosis Acute blood loss as cause of postoperative anemia Depression Anxiety DM (diabetes mellitus) (HCC) Hypothyroidism Hemorrhagic shock (HCC) Chronic pain -Okay to advance to full liquid diet -Bowel regimen okay -Okay to advance to goal tube feeds -Okay to discontinue TPN -colostomy teaching -rest of care per primary team Discussed w Dr. Barrios Subjective: Tolerating PO intake with no n/v. Objective: GEN: alert and oriented no acute distress HEENT: NCAT, EOMI, no scleral icterus CARDIO: RRR, peripheral pulses wnl PULM: normal work of breathing, no stridor, on RA ABD: soft, NTND, incision c/d/i w ceci in place, ostomy w bowel sweat and gas , ostomy pink/edematous EXT: no c/c/e, warm, well-perfused NEURO: motor and sensation grossly intact INTEG: warm, dry, appropriate for age and race PSYCH: cooperative, appropriate mood and affect Vital Signs: Last Filed Vital Signs: 24 Hour Range BP: 109/62 (01/01 1010) Temp: 36.7 C (98 F) (01/01 1010) Pulse: 100 (01/01 1010) Respirations: 18 PER MINUTE (01/01 1010) SpO2: 93 % (01/01 1010) O2 Delivery: None (Room Air) (01/01 1010) BP: (100-141)/(62-81) Temp: [36.4 C (97.6 F)-37.1 C (98.8 F)] Pulse: [92-130] Respirations: [16 PER MINUTE-18 PER MINUTE] SpO2: [92 %-97 %] O2 Delivery: None (Room Air) Intensity Pain Scale 0-10 (Pain 1): 4 (01/01/18 1035) Intake/Output Summary : (Last 24 hours) Intake/Output Summary (Last 24 hours) at 01/01/18 1036 Last data filed at 01/01/18 0636 Gross per 24 hour Intake 2299 ml Output 1350 ml Net 949 ml Feli Winkler MD Pager [phone] Associated attestation - Manny Barrios MD - 01/01/2018 10:39 AM CDT Formatting of this note may be different from the original. ATTESTATION I personally performed the banuelos portions of the E/M visit, discussed case with resident and concur with resident documentation of history, physical exam, assessment, and treatment plan unless otherwise noted. Staff name: Manny Barrios MD Date: 01/01/2018 * Marco Payne MD - 01/01/2018 8:56 AM CDT Formatting of this note may be different from the original. Endocrinology Hospital Follow Up Visit Today's Date: 01/01/2018 Admission Date: 12/13/2017 Assessment: 1. 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 Enteral and parenteral Nutrition Nutren 1.5 with a goal rate of 45 cc an hour TPN with dextrose 120 g 4. Obesity Class III 5. Hyperlipidemia On lovastatin 6. Chondorsarcoma Pelvis s/p hemipelvectomy Recommendations: New insulin orders started late yesterday Lantus 20 units HS (weight based 0.2 units per KG) NPH started yesterday evening to cover the enteral feedings. 8 units every 8 hours. Novolog correction bolus mid dose starting at 180 mg/dL Regular insulin in the TPN 1 unit per 20 grams of carbohydrate (120gm=6 units Glucose goal 140-180 Glucose values today remain above target We are making the following insulin changes with the following new regimen Lantus continue 20 units HS daily NPH increasing to 12 units every 8 hours. This should be stopped if tube feedings are stopped. Novolog correction is not correction the hyperglycemia so we will increase to high dose starting at 180 mg/dL TPN solution regular insulin to increase to 1 unit per 12 grams of carobohydrate=10 units per bag which will not start until after 8PM tonight with the next bag. We will continue to follow Please inform Endocrine of any change in nutrition intake as insulin may need to be changed accordingly. History of Present Illness Beata Kaiser is a 52 y.o. The patient is awake this morning and appropriate. She denies hypoglycemia. She denies nausea or vomiting. She is having some surgical pain. No other new complaints. Estimated Creatinine Clearance: 96.2 mL/min (based on SCr of 0.78 mg/dL). Allergies Allergies Allergen Reactions Cephalexin SEE COMMENTS Face gets red, feels really hot, has tolerated penicillin Review of Systems The patient denies headache, vision changes, shortness of air, chest pain, abdominal pain, nausea or vomiting. Medications Scheduled Meds: acetaminophen (TYLENOL) tablet 1,000 mg 1,000 mg Oral Q6H* buPROPion (WELLBUTRIN) tablet 100 mg 100 mg Oral TID busPIRone (BUSPAR) tablet 15 mg 15 mg Oral BID gabapentin (NEURONTIN) capsule 600 mg 600 mg Oral Q6H insulin aspart U-100 (NOVOLOG FLEXPEN) injection PEN 0-14 Units 0-14 Units Subcutaneous 5 X Day insulin glargine (LANTUS SOLOSTAR, BASAGLAR) injection PEN 20 Units 20 Units Subcutaneous QHS insulin NPH (HUMULIN N KwikPen) injection PEN 8 Units 8 Units Subcutaneous Q8H* lactobacillus rhamnosus GG (CULTURELLE) 15 billion cell capsule 1 capsule 1 capsule Oral BID w/meals levothyroxine (SYNTHROID) tablet 175 mcg 175 mcg Oral QDAY before breakfast lidocaine (LIDODERM) 5 % topical patch 2 patch 2 patch Topical QDAY micafungin (MYCAMINE) 100 mg in sodium chloride 0.9% (NS) 100 mL IVPB (MB+) 100 mg Intravenous Q24H* neomycin tablet 500 mg 500 mg Oral Q6H* pantoprazole DR (PROTONIX) tablet 40 mg 40 mg Oral QDAY(21) piperacillin/tazobactam (ZOSYN) 4.5 g/100 mL iso-osmotic IVPB 4.5 g Intravenous Q6H* rivaroxaban (XARELTO) tablet 20 mg 20 mg Oral QDAY w/breakfast vitamin A & D topical ointment Topical BID Continuous Infusions: Adult Parenteral Nutrition (TPN) 65 mL/hr at 12/31/172049 PRN and Respiratory Meds:alum/mag hydroxide/simeth Q6H PRN, calcium carbonate Q4H PRN, diazePAM Q6H PRN, diphenhydrAMINE Q6H PRN OR [DISCONTINUED] diphenhydrAMINE Q6H PRN, fentaNYL citrate PF Q1H PRN, HYDROmorphone (DILAUDID) injection Q4H PRN, naloxone PRN, ondansetron (ZOFRAN) IV Q6H PRN, oxyCODONE Q3H PRN, pancrelipase 20,000 Units/ sodium bicarbonate 650 mg(#) PRN (Sharepoint Application 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 Rx) Physical Examination Vital Signs: Last Vital Signs: 24 Hour Range BP: 119/67 (01/01 527) Temp: 36.9 C (98.4 F) (01/01 527) Pulse: 109 (01/01 527) Respirations: 18 PER MINUTE (01/01 527) SpO2: 94 % (01/01 527) O2 Delivery: None (Room Air) (01/01 527) BP: (100-141)/(62-81) Temp: [36.4 C (97.6 F)-37.1 C (98.8 F)] Pulse: [92-130] Respirations: [16 PER MINUTE-18 PER MINUTE] SpO2: [92 %-97 %] O2 Delivery: None (Room Air) General appearance: alert, oriented, NAD HENT: mucus membranes moist, no oral lesions/thrush Eyes: PERRL, EOM grossly intact, Conj nl Neck: supple, no lymphadenopathy, thyroid not palpable Lungs: no wheezing, rhonchi, rales appreciated Heart: Regular rhythm, reg rate, with no murmur, rub, gallop Abdomen: soft, non-tender, non-distended, normoactive bowel sounds, no hepatosplenomegaly, no masses Lab Review Point of Care Testing (Last 24 hours) Glucose: (!) 347 (01/01/18 0515) POC Glucose (Download): (!) 363 (01/01/18 0854) Recent Labs 12/31/17 0849 12/31/17 1156 12/31/17 1359 12/31/17 1732 12/31/17 2058 12/31/17 2344 01/01/18 0217 01/01/18 0854 GLUPOC 351* 268* 299* 274* 283* 326* 330* 363* Recent Labs 12/30/17 0458 12/31/17 0330 12/31/17 1010 01/01/18 0515 NA 132* 134* 135* 131* K 4.3 4.3 3.9 4.2 CL 98 100 102 98 CO2 28 25 24 27 GAP 6 9 9 6 BUN 10 15 15 17 CR 0.85 0.86 0.78 0.78 GLU 165* 255* 306* 347* CA 8.6 8.4* 8.0* 8.7 ALBUMIN 2.2* -- -- -- MG 2.0 2.0 -- 2.0 PO4 4.1* 4.1* -- 2.9 Recent Labs 12/30/17 0458 12/30/17 0835 12/31/17 1010 12/31/17 1657 01/01/18 0515 WBC -- 17.0* 13.3* -- 15.6* HGB -- 8.3* 6.6* -- 8.9* HCT -- 24.5* 19.4* -- 26.7* PLTCT -- 539* 548* -- 552* AST 47* -- -- -- -- ALT 51 -- -- -- -- ALKPHOS 127* -- -- -- -- TNI -- -- -- 0.01 -- Estimated Creatinine Clearance: 96.2 mL/min (based on SCr of 0.78 mg/dL). Vitals: 12/18/17 0600 12/27/17 0654 12/30/17 0820 Weight: 92.5 kg (203 lb 14.8 oz) 98.5 kg (217 lb 2.5 oz) 98.5 kg (217 lb 2.5 oz ) Thyroid Studies Lab Results Component Value Date/Time TSH 2.150 12/21/2017 04:38 AM No results found for: FREET3, B5ZLSOISI, THYBINDGLB Pertinent radiology images viewed. Impression: Allen Graves, MD 01/01/2018 Endocrine * César Davis MD - 01/01/2018 7:53 AM CDT Formatting of this note may be different from the original. Subjective: No acute events overnight. Pain significantly improved compared to yesterday. Denies chest pain or shortness of breath. Objective: Blood pressure 119/67, pulse 109, temperature 36.9 C (98.4 F), height 162.6 cm (64"), weight 98.5 kg (217 lb 2.5 oz), SpO2 94 %. General: AAOx3, NAD Cardiac: Tachycardic Respirations: Unlabored Extremities: LLE hemipelvectomy, dressings with some dry serous drainage posteriorly No results for input(s): PTT, INR in the last 72 hours. 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 -PT/OT -Diet: CLD -Melchor catheter x4 wks minimum -Maintain dressings, ortho to manage - reinforce as needed -Orals for pain control, gabapentin - Nursing pain management consult -Resume xarelto for DVT -Please do not leave flat for extended periods of time, patient to lay onto her right side as much as possible -Acute blood loss anemia - transfused yesterday, Hgb 8.9 today -Rehab consult- appreciate recs -Strongly recommend patient be discharged to IRF instead of SNF, would prefer [facility] -Psych, HUM[employer] RECEPTIONIST psych and psychology consults for coping, depression - appreciate assistance -Endocrine consult for blood sugar management - appreciate recs -ID consult - Zosyn, micafungin -Nutrition following for optimization - TPN, tube feeds -General Surgery consult - colostomy 12/30 Dispo: Continue inpatient care César Davis MD [phone] * Julia Marcelino MD - 12/31/2017 10:21 PM CDT Formatting of this note may be different from the original. General Progress Note Name: Betaa Kaiser Today's Date: 12/31/2017 Admission Date: 12/13/2017 LOS: 18 days Assessment/Plan: Principal Problem: Pelvic mass Active Problems: Pelvic mass in female Metabolic acidosis Acute blood loss as cause of postoperative anemia Depression Anxiety DM (diabetes mellitus) (HCC) Hypothyroidism Hemorrhagic shock (HCC) Chronic pain Beata Kaiser is a 52 y.o. female Hx of hypothyroidism and non-insulin dependent diabetes mellitus who presented to [facility] on 12/13/17 for scheduled left hemipelvectomy for chondrosarcoma. Pt underwent open biopsy of left pelvis previously on 11/29. Pt underwent scheduled hemipelvectomy on 12/14/17. Medicine following for hyponatremia. Hyponatremia, improving. - Hypotonic. Random cortisol and TSH WNL. Severe Malnutrition starting enteral feeds 12/28. GERD on protonix GBS bacteremia on zosyn. vanc dc'd 12/27. Aracely infection in urine on diflucan Non-insulin dependent diabetes mellitus insulin initiated in hospital. 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 Plan for diverting colostomy this week. left iliac vein thrombosis. An IVC filter was placed recently Plan : - hyponatremia stable - increased insulin to 16 units, noted endocrine consult. - hyperglycemia related to tube feeding and TPN - episode of chest discomfort today, EKG with old qwaves in inferior leads, chronic, troponin negative - with end managing diabetes, medicine will sign off Please call with questions. Julia Marcelino MD Internal Medicine Subjective Beata Kaiser is a 52 y.o. female. no events overnight. Tolerating tube feeds well, but no appetite. Medications Scheduled Meds: acetaminophen (TYLENOL) tablet 1,000 mg 1,000 mg Oral Q6H* buPROPion (WELLBUTRIN) tablet 100 mg 100 mg Oral TID busPIRone (BUSPAR) tablet 15 mg 15 mg Oral BID gabapentin (NEURONTIN) capsule 600 mg 600 mg Oral Q6H insulin aspart U-100 (NOVOLOG FLEXPEN) injection PEN 0-14 Units 0-14 Units Subcutaneous 5 X Day insulin glargine (LANTUS SOLOSTAR, BASAGLAR) injection PEN 20 Units 20 Units Subcutaneous QHS insulin NPH (HUMULIN N KwikPen) injection PEN 8 Units 8 Units Subcutaneous Q8H* lactobacillus rhamnosus GG (CULTURELLE) 15 billion cell capsule 1 capsule 1 capsule Oral BID w/meals levothyroxine (SYNTHROID) tablet 175 mcg 175 mcg Oral QDAY before breakfast lidocaine (LIDODERM) 5 % topical patch 2 patch 2 patch Topical QDAY micafungin (MYCAMINE) 100 mg in sodium chloride 0.9% (NS) 100 mL IVPB (MB+) 100 mg Intravenous Q24H* neomycin tablet 500 mg 500 mg Oral Q6H* pantoprazole DR (PROTONIX) tablet 40 mg 40 mg Oral QDAY(21) piperacillin/tazobactam (ZOSYN) 4.5 g/100 mL iso-osmotic IVPB 4.5 g Intravenous Q6H* rivaroxaban (XARELTO) tablet 20 mg 20 mg Oral QDAY w/breakfast vitamin A & D topical ointment Topical BID Continuous Infusions: Adult Parenteral Nutrition (TPN) 65 mL/hr at 12/31/17 2050 lactated ringers infusion Stopped (12/30/17 1440) PRN and Respiratory Meds:alum/mag hydroxide/simeth Q6H PRN, calcium carbonate Q4H PRN, diazePAM Q6H PRN, diphenhydrAMINE Q6H PRN OR [DISCONTINUED] diphenhydrAMINE Q6H PRN, fentaNYL citrate PF Q1H PRN, HYDROmorphone (DILAUDID) injection Q4H PRN, naloxone PRN, ondansetron (ZOFRAN) IV Q6H PRN, oxyCODONE Q3H PRN, pancrelipase 20,000 Units/ sodium bicarbonate 650 mg(#) PRN (Sharepoint Application 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 Rx) Objective: Vital Signs: Last Filed Vital Signs: 24 Hour Range BP: 112/72 (12/31 2214) Temp: 36.5 C (97.7 F) (12/31 2214) Pulse: 115 (12/31 2214) Respirations: 16 PER MINUTE (12/31 2214) SpO2: 92 % (12/31 2214) O2 Delivery: None (Room Air) (12/31 2214) BP: (100-141)/(62-81) Temp: [36.4 C (97.6 F)-37.1 C (98.8 F)] Pulse: [92-115] Respirations: [16 PER MINUTE-18 PER MINUTE] SpO2: [92 %-97 %] O2 Delivery: None (Room Air) Intensity Pain Scale 0-10 (Pain 1): 3 (12/31/17 1956) Vitals: 12/18/17 0600 12/27/17 0654 12/30/17 0820 Weight: 92.5 kg (203 lb 14.8 oz) 98.5 kg (217 lb 2.5 oz) 98.5 kg (217 lb 2.5 oz ) Intake/Output Summary: (Last 24 hours) Intake/Output Summary (Last 24 hours) at 12/31/17 2221 Last data filed at 12/31/17 2100 Gross per 24 hour Intake 3568 ml Output 1355 ml Net 2213 ml Stool Occurrence: 3 Physical Exam Gen alert oriented, cooperative, no distress HEENT: nc/at Abd: soft, non-tender Psych: normal mood and affect Lab Review 24-hour labs: Results for orders placed or performed during the hospital encounter of (from the past 24 hour(s)) POC GLUCOSE Collection Time: 12/31/17 1:37 AM Result Value Ref Range Glucose, POC 249 (H) 70 - 100 MG/DL POC GLUCOSE Collection Time: 12/31/17 3:17 AM Result Value Ref Range Glucose, POC 253 (H) 70 - 100 MG/DL PHOSPHORUS Collection Time: 12/31/17 3:30 AM Result Value Ref Range Phosphorus 4.1 (H) 2.0 - 4.0 MG/DL MAGNESIUM Collection Time: 12/31/17 3:30 AM Result Value Ref Range Magnesium 2.0 1.6 - 2.6 mg/dL BASIC METABOLIC PANEL Collection Time: 12/31/17 3:30 AM Result Value Ref Range Sodium 134 (L) 137 - 147 MMOL/L Potassium 4.3 3.5 - 5.1 MMOL/L Chloride 100 98 - 110 MMOL/L CO2 25 21 - 30 MMOL/L Anion Gap 9 3 - 12 Glucose 255 (H) 70 - 100 MG/DL Blood Urea Nitrogen 15 7 - 25 MG/DL Creatinine 0.86 0.4 - 1.00 MG/DL Calcium 8.4 (L) 8.5 - 10.6 MG/DL eGFR Non >60 >60 mL/min eGFR >60 >60 mL/min POC GLUCOSE Collection Time: 12/31/17 7:53 AM Result Value Ref Range Glucose, POC 297 (H) 70 - 100 MG/DL POC GLUCOSE Collection Time: 12/31/17 8:49 AM Result Value Ref Range Glucose, POC 351 (H) 70 - 100 MG/DL CBC Collection Time: 12/31/17 10:10 AM Result Value Ref Range White Blood Cells 13.3 (H) 4.5 - 11.0 K/UL RBC 2.20 (L) 4.0 - 5.0 M/UL Hemoglobin 6.6 (L) 12.0 - 15.0 GM/DL Hematocrit 19.4 (L) 36 - 45 % MCV 88.1 80 - 100 FL MCH 29.9 26 - 34 PG MCHC 34.0 32.0 - 36.0 G/DL RDW 15.6 (H) 11 - 15 % Platelet Count 548 (H) 150 - 400 K/UL MPV 6.1 (L) 7 - 11 FL BASIC METABOLIC PANEL Collection Time: 12/31/17 10:10 AM Result Value Ref Range Sodium 135 (L) 137 - 147 MMOL/L Potassium 3.9 3.5 - 5.1 MMOL/L Chloride 102 98 - 110 MMOL/L CO2 24 21 - 30 MMOL/L Anion Gap 9 3 - 12 Glucose 306 (H) 70 - 100 MG/DL Blood Urea Nitrogen 15 7 - 25 MG/DL Creatinine 0.78 0.4 - 1.00 MG/DL Calcium 8.0 (L) 8.5 - 10.6 MG/DL eGFR Non >60 >60 mL/min eGFR >60 >60 mL/min POC GLUCOSE Collection Time: 12/31/17 11:56 AM Result Value Ref Range Glucose, POC 268 (H) 70 - 100 MG/DL POC GLUCOSE Collection Time: 12/31/17 1:59 PM Result Value Ref Range Glucose, POC 299 (H) 70 - 100 MG/DL TROPONIN-I Collection Time: 12/31/17 4:57 PM Result Value Ref Range Troponin-I 0.01 0.0 - 0.05 NG/ML POC GLUCOSE Collection Time: 12/31/17 5:32 PM Result Value Ref Range Glucose, POC 274 (H) 70 - 100 MG/DL POC GLUCOSE Collection Time: 12/31/17 8:58 PM Result Value Ref Range Glucose, POC 283 (H) 70 - 100 MG/DL Point of Care Testing (Last 24 hours) Glucose: (!) 306 (12/31/17 1010) POC Glucose (Download): (!) 283 (12/31/172057) Radiology and other Diagnostics Review: Pertinent radiology reviewed. Julia Marcelino MD * Harry Moore MD - 12/31/2017 6:53 PM CDT Formatting of this note may be different from the original. Ortho Update Note Nursing paged about patient having some chest pain. Vitals have remained stable and patient has been satting well on RA. STAT EKG and troponin was ordered. Troponin was negative and IM not concerned with EKG results. Will continue to monitor. Asymptomatic as of this time Vitals: 12/31/17 1809 BP: 113/67 Pulse: 110 Temp: 37.1 C (98.8 F) SpO2: 92% * Indy Isabel MD - 12/31/2017 4:28 PM CDT Formatting of this note may be different from the original. 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 diff negative - 12/23 Bcx 09/21 set group B streptococcus; source seems most likely intra-pelvic - CT pelvis 12/25: "Ill-defined fluid and air along the anterior margin of the surgical site away from the drain tip. However, no discrete drainable fluid collection is noted." # Candiduria - 12/21/17 UA: wbc 2-10, negative nitrite, 1+ luukocytes, Culture > 100,000 Aracely sp - Sensitivities not done, unsure if fluconazole susceptible; repeat urine culture negative 12/28 - Treating given indwelling melchor and inability to remove melchor d/t recent bladder repair - ? Candidal intertrigo - groin/mons # s/p hemipelvectomy for Chondrosarcoma - 11/25/17 [...] Stool saturating wound. Diverting colostomy done 12/30. # DVT - 11/30/17 IVC filter for DVT within the external iliac vein # Obese # HTN # DM # Hypothyroidism # Depression # Generalized pain # abx allergy - allergic history to Cephalexin 'years ago' with skin rash and hot flash - tolerated Penicillin when she had dental caries Recommendations: 1. Continue Zosyn 2. Continue micafungin 3. Monitor wounds closely for progressive wound breakdown 4. Monitor for abx toxicity 5. Trend temp, WBC - leukocytosis improved today Will follow. Staffed with attending, Dr. Isabel. ATTESTATION I have seen and examined the patient today. I discussed the case with Dr. Pedro the Infectious Diseases fellow. I concur with her findings documented in this note. I personally reviewed the history, laboratory and microbiology data as well as imaging studies today. The content of this consult was modified by me where necessary. Complexity of medical decision making is high b/c of the multi-system nature of the infectious disease process and concerns about the complexity of the patient illness including the identification and sensitivity of the organisms being treated, the potential for drug toxicity which requires monitoring of CBC, chemistry and potential drug levels between visits, potential drug interactions which could lead to life threatening outcome, concerns about immunologic function, and interplay of other issues. Discussed w nursing. Wounds appear stable. Her WBC is better- ? Response to micafungin. Will monitor. She remains high risk for complication of wounds and atbx therapy. Needs daily labs and ongoing close observation Indy Isabel MD Date: 12/31/2017 Pager: [phone] Interval History Afebrile, stable vitals. Wounds newly dressed. ROS - abdominal pain mostly around the colostomy site. Reports dressing were just changed. Denies pain during palpation of the remainder of the abdomen. No nausea, vomiting, headache, dizziness, new skin rashes. WBC down today to 13.3, creatinine 0.78 UA 10-20 WBC, few bacteria and yeast - culture negative Antimicrobial Start date End date Erythromycin 12/13 Neomycin 12/13 12/13 Polymyxin B 12/14 12/14 Gentamycin 12/14 12/15 Clindamycin 12/14 12/22 Pip/tazo 12/22 active Fluconazole 12/22 12/30 Vancomycin 12/23 12/27 Micafungin 12/30 active Estimated Creatinine Clearance: 96.2 mL/min (based on SCr of 0.78 mg/dL). Medications Scheduled Meds: acetaminophen (TYLENOL) tablet 1,000 mg 1,000 mg Oral Q6H* buPROPion (WELLBUTRIN) tablet 100 mg 100 mg Oral TID busPIRone (BUSPAR) tablet 15 mg 15 mg Oral BID gabapentin (NEURONTIN) capsule 600 mg 600 mg Oral Q6H insulin aspart U-100 (NOVOLOG FLEXPEN) injection PEN 0-28 Units 0-28 Units Subcutaneous 5 X Day insulin aspart [...] patch 2 patch 2 patch Topical QDAY micafungin (MYCAMINE) 100 mg in sodium chloride 0.9% (NS) 100 mL IVPB (MB+) 100 mg Intravenous Q24H* neomycin tablet 500 mg 500 mg Oral Q6H* pantoprazole DR (PROTONIX) tablet 40 mg 40 mg Oral QDAY(21) piperacillin/tazobactam (ZOSYN) 4.5 g/100 mL iso-osmotic IVPB 4.5 g Intravenous Q6H* rivaroxaban (XARELTO) tablet 20 mg 20 mg Oral QDAY w/breakfast vitamin A & D topical ointment Topical BID Continuous Infusions: Adult Parenteral Nutrition (TPN) Adult Parenteral Nutrition (TPN) 65 mL/hr at 12/30/172027 lactated ringers infusion Stopped (12/30/171439) PRN and Respiratory Meds:alum/mag hydroxide/simeth Q6H PRN, calcium carbonate Q4H PRN, diazePAM Q6H PRN, diphenhydrAMINE Q6H PRN OR [DISCONTINUED] diphenhydrAMINE Q6H PRN, fentaNYL citrate PF Q1H PRN, HYDROmorphone (DILAUDID) injection Q4H PRN, naloxone PRN, ondansetron (ZOFRAN) IV Q6H PRN, oxyCODONE Q3H PRN, pancrelipase 20,000 Units/ sodium bicarbonate 650 mg(#) PRN (Sharepoint Application 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 Rx) Physical Examination Vital Signs: Last Vital Signs: 24 Hour Range BP: 141/70 (12/31 1618) Temp: 36.6 C (97.8 F) (12/31 1618) Pulse: 105 (12/31 1618) Respirations: 18 PER MINUTE (12/31 1618) SpO2: 97 % (12/31 1618) O2 Delivery: None (Room Air) (12/31 1618) BP: (100-141)/(61-70) Temp: [36.4 C (97.6 F)-37.2 C (99 F)] Pulse: [92-114] Respirations: [16 PER MINUTE-18 PER MINUTE] SpO2: [92 %-97 %] O2 Delivery: None (Room Air) General appearance: obese, alert, oriented, NAD HENT: mucus membranes moist, no oral lesions/thrush Eyes: EOMI, normal conj Lungs: no wheezing, rhonchi, rales appreciated Heart: Regular rhythm, reg rate, with no murmur, rub, gallop Abdomen: obese, normal garcia sounds, soft, non-tender, non distended Ext: s/p left hemipelvectomy; incision w dressing in place. There are areas of necrosis- along pannus, and in vulvar area. The area in pannus is stable today. Colostomy placed w/ stool in bag, stoma appears normal. Dressings just changes and dry without significant drainage. Mons pubis/groin less moist today , with dependent edema/erythema but somewhat improved from yesterday. Skin: no generalized rashes Psych: flat affect Lines: Indwelling melchor catheter Lab Review Hematology Recent Labs 12/29/17 0451 12/30/17 0835 12/31/17 1010 WBC 16.4* 17.0* 13.3* HGB 7.7* 8.3* 6.6* HCT 22.8* 24.5* 19.4* PLTCT 434* 539* 548* Chemistry Recent Labs 12/30/17 0458 12/31/17 0330 12/31/17 1010 NA 132* 134* 135* K 4.3 4.3 3.9 CL 98 100 102 CO2 28 25 24 BUN 10 15 15 CR 0.85 0.86 0.78 GFR >60 >60 >60 GLU 165* 255* 306* CA 8.6 8.4* 8.0* PO4 4.1* 4.1* -- ALBUMIN 2.2* -- -- ALKPHOS 127* -- -- AST 47* -- -- ALT 51 -- -- TOTBILI 0.3 -- -- Microbiology, Radiology and other Diagnostics Review Microbiology data reviewed. Chari Pedro DO Pager [phone] ID fellow * Kerline Kruger RN - 12/31/2017 4:25 PM CDT RN was notified that patient was stating that she felt like her chest was heavy. Upon assessment patient stated that she feels chest "pressure or tightness". Patient stated that she noticed it start when she took a dose of oxycodone at 1701: Notified Dr. Moore of patients EKG reading results of sinus tachycardia and probable inferior infarct, age indeterminate. Dr. Moore requested that we page medicine since they are consulted on the patient. 1703: Paged Med consults #[phone] Spoke to team about EKG results and patient symptoms. Medicine team stated that they were thinking the chest pressure may be heart burn and to give the patient some maalox. * Bryanna Sepulveda - 12/31/2017 3:10 PM CDT PHYSICAL THERAPY MOBILITY NOTE Patient was assigned for activity with the mobility aide by the supervising therapist. Patient declined to participate despite encouragement due to increased pain. Aide: Bryanna Sepulveda Date: 12/31/2017 * Chari Moon - 12/31/2017 1:59 PM CDT PHYSICAL THERAPY NOTE Patient declined to participate despite encouragement and education about the role and benefits of physical therapy due to pain in abdomen and fatigue. Physical therapy will continue to follow and provide intervention as indicated. Therapist: Chari Moon Date: 12/31/2017 * Nani Mcelroy RN - 12/31/2017 12:13 PM CDT Formatting of this note may be different from the original. Wound Ostomy Note NAME:Beata Kaiser :1965 AGE: 52 y.o. ADMISSION DATE: 12/13/2017 DAYS ADMITTED: LOS: 18 days Reason for Consult/Visit: ostomy education Assessment/Plan: Principal Problem: Pelvic mass Active Problems: Pelvic mass in female Metabolic acidosis Acute blood loss as cause of postoperative anemia Depression Anxiety DM (diabetes mellitus) (HCC) Hypothyroidism Hemorrhagic shock (HCC) Chronic pain Colostomy 12/30/17 1209 Right (Active) 12/30/17 1209 Right Agree With My Assessment? Except 12/30/2017 2:45 PM Stoma Assessment Garber 12/31/2017 12:00 PM Drainage Description Sanguineous;Brown 12/30/2017 8:30 PM Peristomal Skin Assessment Intact 12/30/2017 8:30 PM Dressing Status Intact 12/31/2017 12:00 PM Drain Output (ml) 0 ml 12/31/2017 10:30 AM Met pt beside. Surgery had been by this am and changed dressings. Stoma to RUQ, pink moist, round and protruding. Will follow up for education/teaching as appropriate. Xeroform gauze, 4x4 and hypafix tape intact on abdominal skin fold. Xeroform gauze intact to left labia OSTOMY CARE: - Change pouch immediately when [...] securing closed to prevent residue and odor. Bedside RN is responsible for continuing ostomy education in between visits from our service. This can be achieved by including patient (and family) in ostomy care tasks such as pouch emptying and pouch changes. Will continue to follow. Nani Mcelroy RN, BSN Wound Ostomy Nursing Consult Service Office: [phone] Pager: [phone] After hours Wound/Ostomy team pager : [phone] * Adari Colin MD - 12/31/2017 12:05 PM CDT Formatting of this note may be different from the original. Psychiatric Consultation Progress Note LOS: 18 days Current Psychotropic Meds: Wellbutrin 100 mg 3 times a day, BuSpar 15 mg twice a day. Assessment: 1. Adjustment disorder with mixed anxiety and depression 2. Other depression 3. Other anxiety Recommendations: With respect to anxiety and depression she appears a stable. Continue wellbutrin 100mg po TID, Buspar 30mg po BID for mood/anxiety. QTC 447 on 12/15. Psychiatry sign off the patient. Will be available for assistance. Delirium protocol: - Avoid benzodiazepines, opiates and anticholinergics if possible as can contribute/cause delirium. - Frequent reorientation, use of clocks/calendars, verbal reminders of current location and situation. - A calm, comfortable environment that includes familiar objects from home. - Involvement of family members. - Uninterrupted periods of sleep at night, with low levels of noise and minimal light. - Open blinds during the day to promote daytime alertness and a regular sleep- wake cycle. Seen and discussed with: Dr. Quintana Please feel free to contact us with any additional questions or concerns by paging the consult team between 8am and 5pm on weekdays and between 8am and 3pm on weekends at [phone]. Otherwise, page the global consumer sector vice president clinical practice consultant. Subjective: Beata Kaiser is seen for routine follow-up. She is lying in bed slightly distressed and distraught. Oriented and alert to all spheres. States that, yesterday she has had her colostomy bag which is causing pain. She was not able to sleep last night because of pain. Last night received fentanyl drip, no dilated is not started for pain. She is cautioned about drowsiness and confusion. Encouraged to keep self engaged in conversation with family and others. Denies suicidal or homicidal thoughts intent or plan. Denies auditory or visual hallucinations. A 14 point review of systems was negative except for: Constitutional: positive for sweats, fatigue and malaise and pain Behvioral/Psych: positive for bad mood and sleep disturbance Objective: Vital Signs: Current Vital Signs: 24 Hour Range BP: 124/69 (12/31 1030) Temp: 36.8 C (98.3 F) (12/31 1030) Pulse: 100 (12/31 1030) Respirations: 18 PER MINUTE (12/31 1030) SpO2: 94 % (12/31 1030) O2 Delivery: None (Room Air) (12/31 1030) SpO2 Pulse: 100 (12/30 1415) BP: (88-133)/(61-101) Temp: [36.6 C (97.9 F)-37.2 C (99 F)] Pulse: [93-114] Respirations: [11 PER MINUTE-22 PER MINUTE] SpO2: [92 %-100 %] O2 Delivery: None (Room Air) Intensity Pain Scale 0-10 (Pain 1): (not recorded) Scheduled Medications: acetaminophen (TYLENOL) tablet 1,000 mg 1,000 mg Oral Q6H* buPROPion (WELLBUTRIN) tablet 100 mg 100 mg Oral TID busPIRone (BUSPAR) tablet 15 mg 15 mg Oral BID gabapentin (NEURONTIN) capsule 600 mg 600 mg Oral Q6H insulin aspart U-100 (NOVOLOG FLEXPEN) injection PEN 0-28 Units 0-28 Units Subcutaneous 5 X Day insulin aspart [...] patch 2 patch 2 patch Topical QDAY micafungin (MYCAMINE) 100 mg in sodium chloride 0.9% (NS) 100 mL IVPB (MB+) 100 mg Intravenous Q24H* neomycin tablet 500 mg 500 mg Oral Q6H* pantoprazole DR (PROTONIX) tablet 40 mg 40 mg Oral QDAY(21) piperacillin/tazobactam (ZOSYN) 4.5 g/100 mL iso-osmotic IVPB 4.5 g Intravenous Q6H* rivaroxaban (XARELTO) tablet 20 mg 20 mg Oral QDAY w/breakfast vitamin A & D topical ointment Topical BID PRN Medications: alum/mag hydroxide/simeth Q6H PRN 30 mL at 12/31/17 0847, calcium carbonate Q4H PRN 1,000 mg at 12/25/17 1349, diazePAM Q6H PRN 5 mg at 12/25/17 0329, diphenhydrAMINE Q6H PRN OR [DISCONTINUED] diphenhydrAMINE Q6H PRN 25 mg at 12/19/17 2139, fentaNYL citrate PF Q1H PRN 50 mcg at 12/30/17 1754, HYDROmorphone (DILAUDID) injection Q4H PRN 1 mg at 12/31/17 1117, naloxone PRN, ondansetron (ZOFRAN) IV Q6H PRN, oxyCODONE Q3H PRN, pancrelipase 20,000 Units/ sodium bicarbonate 650 mg(#) PRN (Sharepoint Application 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 Rx) Mental Status Exam: General/Constitutional: cooperative, interactive, dressed appropriately, and appropriate eye contact Speech: regular rate, rhythm with oscillation Thought Process. Logical goal directed Thought Content: Denied SI, HI, AH, VH Perception: No delusions or illusions reported Associations: Intact Insight/Judgement: fair/fair Orientation: oriented X 4 Recent and remote memory: intact Attention span and concentration: fair Language: appropriate Fund of knowledge and vocabulary: average Mood: frustrated Affect: congruent Focused Physical Exam: Neurologic: non focal Musculoskeletal: no EPS or dystonia Adair Colin MD Associated attestation - Hugh Quintana MD - 01/01/2018 1:28 AM CDT Formatting of this note may be different from the original. ATTESTATION I personally performed the banuelos portions of the E/M visit, discussed the case with the resident and concur with resident documentation of history, physical exam, assessment, and treatment plan unless otherwise noted. I personally participated in development of the plan of care. Please feel free to contact us with any additional questions or concerns by paging the consult team between 8am and 5pm on weekdays and between 8am and 3pm on weekends [phone]. Otherwise, page the global consumer sector vice president clinical practice consultant. Staff name: Hugh Quintana MD Date: 01/01/2018 * Evelyn Barrow DO - 12/31/2017 11:41 AM CDT Formatting of this note may be different from the original. Surgical Progress Note Today's Date: 12/31/2017 Name: Beata Kaiser Admission Date: 12/13/2017 LOS: 18 days Assessment/Plan: 52F s/p left hemipelvectomy, now with wound soilage, s/p diverting colostomy 12/30/17 Principal Problem: Pelvic mass Active Problems: Pelvic mass in female Metabolic acidosis Acute blood loss as cause of postoperative anemia Depression Anxiety DM (diabetes mellitus) (HCC) Hypothyroidism Hemorrhagic shock (HCC) Chronic pain - CLD - Start TF at 20, advance to goal slowly - colostomy functioning, continue to monitor output - colostomy teaching - rest of care per primary Discussed w Dr. Mccollum Subjective: NAEON. Feels overall ok this am. -n/v. Pain controlled. Objective: GEN: alert and oriented no acute distress HEENT: NCAT, EOMI, no scleral icterus CARDIO: RRR, peripheral pulses wnl PULM: normal work of breathing, no stridor, on RA ABD: soft, NTND, incision c/d/i w ceci in place, ostomy w liquid brown and partially solid stool in bag, stoma pink, healthy. EXT: no c/c/e, warm, well-perfused NEURO: motor and sensation grossly intact INTEG: warm, dry, appropriate for age and race PSYCH: cooperative, appropriate mood and affect Vital Signs: Last Filed Vital Signs: 24 Hour Range BP: 124/69 (12/31 1030) Temp: 36.8 C (98.3 F) (12/31 103) Pulse: 100 (12/31 1030) Respirations: 18 PER MINUTE (12/31 1030) SpO2: 94 % (12/31 1030) O2 Delivery: None (Room Air) (12/31 103) SpO2 Pulse: 100 (12/30 1415) BP: (88-133)/(61-101) Temp: [36.6 C (97.9 F)-37.2 C (99 F)] Pulse: [93-114] Respirations: [11 PER MINUTE-22 PER MINUTE] SpO2: [92 %-100 %] O2 Delivery: None (Room Air) Intensity Pain Scale 0-10 (Pain 1): (not recorded) Intake/Output Summary : (Last 24 hours) Intake/Output Summary (Last 24 hours) at 12/31/17 1141 Last data filed at 12/31/17 1030 Gross per 24 hour Intake 4335 ml Output 1580 ml Net 2755 ml Evelyn Barrow DO Pager [phone] * Herminia Gant OTA - 12/31/2017 11:30 AM CDT OCCUPATIONAL THERAPY NO TREATMENT NOTE The patient was not seen due to: Pt refused therapy this am due to uncontrolled pain from OR yesterday. Attempted to encourage participation but continued to decline. RN notified. Attempted to see patient 1 time(s) Therapist: HUYEN Schmidt Date: 12/31/2017 * Jasper Betts, SANJAY - 12/31/2017 9:47 AM CDT Inpatient Pain Management Nurses - [facility] - Follow -Up Discussed patient with Dr. Mina Davis (primary team). Primary team is responsible for entering orders. Suggested Plan for the Day: Lidocaine patch x2 cut to fit placed beside surgical incision and around ostomy bag. Discontinue fentanyl DIRECTOR PHARMACOLOGY - patient stating that she is not have controlled pain with pushing the button. Change Oxycodone 10-20 mg PO q 3 hours PRN pain - patient was on earlier this week with manageable pain. Hydromorphone 0.5-1 mg IV q 4 hours PRN breakthrough pain not relieved with oral medications or NPO or vomiting for 24 hours ONLY, then change to every 6 hours PRN breakthrough pain not relieved with oral medications or NPO or vomiting Anticipated D/C Planning: Preference is IPR S: Patient's current pain intensity: severe Clinically Aligned Pain Assessment Comfort: Intolerable Change in pain: Getting worse Pain control: Inadequate pain control Function: Cannot do anything because of pain Sleep: Awake with pain most of the night O: Oral morphine equivalent (OME) used over past 24 hours (7:01 AM - 7:00 AM)- ~ 89 mg Current Analgesic Regimen, OME: Used 580 mcg in fentanyl DIRECTOR PHARMACOLOGY ~ 58 mg Used 1 dose of morphine IV @ 2 mg ~ 6 mg Used 3 doses of IV fentanyl @ 50 ugb=761 mcg ~ 15 mg Used 1 dose of oxycodone @ 10 mg ~ 10 mg Current Facility-Administered Medications: acetaminophen (TYLENOL) tablet 1,000 mg, 1,000 mg, Oral, Q6H*, Stopped at 12/30/17 1648 OR [DISCONTINUED] acetaminophen (TYLENOL) rectal suppository 650 mg, 650 mg, Rectal, Q4H PRN, Adrienne Zarate MD Adult Parenteral Nutrition (TPN), , Central, PN PER ADMIN INSTR, Julia Abrams MD Adult Parenteral Nutrition (TPN), , Central, PN PER ADMIN INSTR, Julia Abrams MD, Last Rate: 65 mL/hr at 12/30/172027 alum/mag hydroxide/simeth (MYLANTA, MAALOX PLUS) oral suspension 30 mL, 30 mL, Oral, Q6H PRN, Adrienne Zarate MD, 30 mL at 12/31/17 0847 buPROPion (WELLBUTRIN) tablet 100 mg, 100 mg, Oral, TID, Tamiko Luther MD, 100 mg at 12/31/17 0847 busPIRone (BUSPAR) tablet 15 mg, 15 mg, Oral, BID, Adrienne Zarate MD, 15 mg at 12/31/17 0847 calcium carbonate (TUMS) chew tablet 500-1,000 mg, 500-1,000 mg, Oral, Q4H PRN, Adrienne Zarate MD, 1,000 mg at 12/25/17 1349 diazePAM (VALIUM) tablet 2.5-5 mg, 2.5-5 mg, Oral, Q6H PRN, Kristie Cruz MD, 5 mg at 12/25/17 0329 diphenhydrAMINE (BENADRYL) capsule 25 mg, 25 mg, Oral, Q6H PRN OR [ DISCONTINUED] diphenhydrAMINE (BENADRYL) injection 25 mg, 25 mg, Intravenous, Q6H PRN, Adrienne Zarate MD, 25 mg at 12/19/17 2139 fentaNYL (SUBLIMAZE) DIRECTOR PHARMACOLOGY 550 mcg/ NS 55 mL infusion syr (std conc)( premade), , Intravenous, DIRECTOR PHARMACOLOGY, César Davis MD fentaNYL citrate PF (SUBLIMAZE) injection 50-100 mcg, 50-100 mcg, Intravenous, Q1H PRN, Anthony, Kristie E, MD, 50 mcg at 12/30/17 1754 gabapentin (NEURONTIN) capsule 600 mg, 600 mg, Oral, Q6H, Adrienne Zarate MD, 600 mg at 12/31/17 0633 insulin aspart U-100 (NOVOLOG FLEXPEN) injection PEN 0-14 Units, 0-14 Units , Subcutaneous, 5 X Day, Natalio Monroy MD, 12 Units at 12/31/17 0851 insulin aspart U-100 (NOVOLOG FLEXPEN) injection PEN 6 Units, 6 Units, Subcutaneous, TID w/ meals, Dalia Bullock MD, 6 Units at 12/31/17 0850 insulin glargine (LANTUS SOLOSTAR, BASAGLAR) injection PEN 20 Units, 20 Units, Subcutaneous, QHS, Julia Marcelino MD lactated ringers infusion, 1,000 mL, Intravenous, Continuous, Tamiko Luther MD, Stopped at 12/30/17 1440 lactobacillus rhamnosus GG (CULTURELLE) 15 billion cell capsule 1 capsule, 1 capsule, Oral, BID w/meals, Aditya Torrez MD, 1 capsule at 12/31/17 0847 levothyroxine (SYNTHROID) tablet 175 mcg, 175 mcg, Oral, QDAY before breakfast, Tamiko Luther MD, 175 mcg at 12/31/17 0633 micafungin (MYCAMINE) 100 mg in sodium chloride 0.9% (NS) 100 mL IVPB (MB+) , 100 mg, Intravenous, Q24H*, Chari Pedro, DO, Last Rate: 100 mL/hr at 09/068, 100 mg at 12/30/17 1928 naloxone (NARCAN) injection 0.08 mg, 0.08 mg, Intravenous, PRN, César Davis MD neomycin tablet 500 mg, 500 mg, Oral, Q6H*, Fareed Holcomb MD, Stopped at 1648 ondansetron (ZOFRAN) injection 4 mg, 4 mg, Intravenous, Q6H PRN, Adrienne Zarate MD oxyCODONE (ROXICODONE, OXY-IR) tablet 5-10 mg, 5-10 mg, Oral, Q3H PRN, Khoi Burt MD, 10 mg at 12/30/17 0730 pancrelipase 20,000 Units/ sodium bicarbonate 650 mg(#) (KU CLOG DESTROYER ) for occluded feeding tube cap 1 capsule, 1 capsule, Feeding Tube, PRN (Sharepoint Application 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 Rx), Adrienne Zarate MD pantoprazole DR (PROTONIX) tablet 40 mg, 40 mg, Oral, QDAY(21), Luis Sargent MD, 40 mg at 12/29/172145 piperacillin/tazobactam (ZOSYN) 4.5 g/100 mL iso-osmotic IVPB, 4.5 g, Intravenous, Q6H*, Dominique Nelson MD, Last Rate: 200 mL/hr at 12/31/17 0513, 4.5 g at 12/31/17 0513 rivaroxaban (XARELTO) tablet 20 mg, 20 mg, Oral, QDAY w/breakfast, Adrienne Zarate MD, 20 mg at 12/31/17 0847 vitamin A & D topical ointment, , Topical, BID, Aditya Torrez MD, 1 g at 12/30/17 215 Impression: Patient with increased pain since post-op of diverting colostomy. She states the pain has not been controlled all night and she has not slept. Suggest adding lidocaine patch placed beside surgical incision and surround ostomy output flange. She still has oxycodone ordered but has just been advanced on her diet to CL and medications this AM. Suggest increasing oxycodone to 10-20 mg orally every 3 hours as needed for pain. Discontinue fentanyl DIRECTOR PHARMACOLOGY. Suggest allowing hydromorphone 0.5-1 mg IV every 4 hours as needed for breakthrough pain not relieved with oral medications or NPO or vomiting for ONLY 24 hours, then taper to every 6 hours PRN breakthrough pain not relieved with oral medications or NPO or vomiting. Please call with questions/concerns. Jasper Betts, MSN, RN- Clinical Nurse Coordinator Pain Management [phone] Team pager [phone] * Adrienne Carlos RD - 12/31/2017 9:46 AM CDT Formatting of this note may be different from the original. Nutrition Support Service (NSS) Progress Note Comment: POD#1 s/p ex-lap, OBED, diverting end colostomy placement. Patient had previously been drinking protein shakes throughout the day and was on nocturnal EN support (Isosource 1.5 @ 60ml/hr) via corpak (tip in stomach). Held at [facility] yesterday AM for OR. PN order had been placed 12/29 in anticipation for infusion post-op/once PICC placed, however patient did not have PICC placed until back on unit ~18:30 per RN. Thus first PN order was not infused. PN started ~20:30 last night with 12/30 orders. NSS spoke with Ortho & Surg-Onc regarding various modes of nutrition & discharge planning. Patient cleared to resume CLD this morning. Surg-Onc also ordering EN to be resumed at 20ml/hr via corpak (not compressed/nocturnal regimen for now); titrating up slowly with eventual plan to return to nocturnal feeds & diet advancement. PN support to continue until patient stable on goal EN regimen again. NSS spoke with Ortho pharmacist regarding hyperglycemia- plan is to adjust outside insulin and keep same 20:1 CHO:insulin ratio in PN for now, given uncertainty of duration of PN support going into the weekend. Current PN Formula: Nonstandard TPN at 65ml/hr - 1560ml total volume Macronutrients: AA 110gm, Dex 120 gm, Lipids 250 ml Lytes/Additives: Na 120 mEq, K 40 mEq, Ca 10 mEq, Mg 8 mEq, Phos 8 mmol, Standard MV and trace elements, All Cl, Thiamine 100mg. Regular insulin 6 units Provides: 1348 kcals (24 kcals/kg DBW), 110 gm AA (2.0 gm/kg DBW) Diet Order: CLD (12/31); NPO TF: (not yet resumed) I/O: (incomplete) UOP: 3535ml Colostomy: 100ml Meds: Scheduled Meds: acetaminophen (TYLENOL) tablet 1,000 mg 1,000 mg Oral Q6H* buPROPion (WELLBUTRIN) tablet 100 mg 100 mg Oral TID busPIRone (BUSPAR) tablet 15 mg 15 mg Oral BID gabapentin (NEURONTIN) capsule 600 mg 600 mg [...] mcg 175 mcg Oral QDAY before breakfast micafungin (MYCAMINE) 100 mg in sodium chloride 0.9% (NS) 100 mL IVPB (MB+) 100 mg Intravenous Q24H* neomycin tablet 500 mg 500 mg Oral Q6H* pantoprazole DR (PROTONIX) tablet 40 mg 40 mg Oral QDAY(21) piperacillin/tazobactam (ZOSYN) 4.5 g/100 mL iso-osmotic IVPB 4.5 g Intravenous Q6H* rivaroxaban (XARELTO) tablet 20 mg 20 mg Oral QDAY w/breakfast vitamin A & D topical ointment Topical BID Continuous Infusions: Adult Parenteral Nutrition (TPN) Adult Parenteral Nutrition (TPN) 65 mL/hr at 12/30/172027 fentaNYL (SUBLIMAZE) DIRECTOR PHARMACOLOGY 550 mcg/ NS 55 mL infusion syr (std conc)(premade ) lactated ringers infusion Stopped (12/30/17 1440) PRN and Respiratory Meds:alum/mag hydroxide/simeth Q6H PRN, calcium carbonate Q4H PRN, diazePAM Q6H PRN, diphenhydrAMINE Q6H PRN OR [DISCONTINUED] diphenhydrAMINE Q6H PRN, fentaNYL citrate PF Q1H PRN, naloxone PRN, ondansetron (ZOFRAN) IV Q6H PRN, oxyCODONE Q3H PRN, pancrelipase 20,000 Units/ sodium bicarbonate 650 mg(#) PRN (Sharepoint Application 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 Rx) Electrolyte Treatments: Nothing besides LR & PlasmaLyteA given intraoperatively Pertinent Labs: Comprehensive Metabolic Profile Lab Results Component Value Date/Time NA 134 (L) 12/31/2017 03:30 AM K 4.3 12/31/2017 03:30 AM CL 100 12/31/2017 03:30 AM CO2 25 12/31/2017 03:30 AM GAP 9 12/31/2017 03:30 AM BUN 15 12/31/2017 03:30 AM CR 0.86 12/31/2017 03:30 AM GLU 255 (H) 12/31/2017 03:30 AM Lab Results Component Value Date/Time CA 8.4 (L) 12/31/2017 03:30 AM PO4 4.1 (H) 12/31/2017 03:30 AM ALBUMIN 2.2 (L) 12/30/2017 04:58 AM TOTPROT 5.7 (L) 12/30/2017 04:58 AM ALKPHOS 127 (H) 12/30/2017 04:58 AM AST 47 (H) 12/30/2017 04:58 AM ALT 51 12/30/2017 04:58 AM TOTBILI 0.3 12/30/2017 04:58 AM GFR >60 12/31/2017 03:30 AM GFRAA >60 12/31/2017 03:30 AM Lab Results Component Value Date MG 2.0 12/31/2017 FSBS: 184, 173, 207, 211, 249, 253mg/dL; 10 units MDCF insulin & 16units lantus given yesterday; 297, 351mg/dL this AM with 18 units MDCF insulin given so far; planned increased to HDCF insulin & 20 units lantus tonight Admit Weight (Kg): Weight: 104.8 kg (231 lb 0.7 oz) Current Weight (Kg): Weight: 98.5 kg (217 lb 2.5 oz) Estimated Kcal Needs: 1660 (30 kcals/kg per DBW 55.3 kg due to large surgical wound) Estimated Protein Needs: 100-120(1.8-2.2g/kg desired wt of 55.3kg.) A/P: Beata Kaiser is a 52 y.o. 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 Pt's weight went down 28# or 12% s/p removal of her leg, 203# (12/18). Latest weight shows a 14# increase in 9 days, likely due to fluid. Pt has continued to have decreased PO intake, with average PO intake of 600 kcals, 33 gm per day per calorie count. Yet Per fellow RD, all of Pt's intake of [place] shakes may not be included in the number. Noted nocturnal TFs ordered 12/27, yet not started until 12/28 due to trouble obtaining post-pyloric corpak placement. Noted only 283 ml of enteral formula recorded as given last night. Pt has been having issues with stool soilage prohibiting wound healing so plan for colostomy placement tomorrow 12/29. NSS consulted for TPN to start tomorrow morning after Pt returns from OR, due to "High serous drain output with low albumin with concern for protein malnutrition and inability for fluid to stay intravascular. Patient undergoing colostomy 12/30 and will likely be NPO or diet restricted for several days. Need nutrition optimization for wound healing of both large hemipelvectomy wound and new colostomy." NSS RD agrees with starting TPN to bridge Pt thru this next surgery and possible post-op ileus. Pt's nutritional status has been sub-optimal for most of her stay and Pt is now at HD #17. Pt does not currently have a central line. Per primary team, plan is to have a line placed in OR today. First TPN bag should be on the floor awaiting Pt to return form OR. Chart/labs reviewed. Patient receiving first bag of PN currently, providing 1348kcal (81% goal), 110g protein (100% goal). Given resumption of CLD + planned resumption of trickle EN feeds this morning, will not be increasing calories of PN. Did originally plan to increase insulin in tonight's PN bag, however with potential for PN discontinuation soon, NSS & Ortho decided to increase outside insulin provision instead today. Lytes- all appropriate to keep at current PN contents (suspect Phos will drop within normal range by tomorrow; PN contains less than standard Phos amount). Will however decrease cl: acetate ratio by 1 step based on serum Cl/CO2 trends. PN Changes (to start at 20:30): Decreased cl:acetate ratio to 3:1 Continuing 120g dextrose & 6 units regular insulin PN to provide 1348 kcals (81% of goal) and 110 g protein (100% of goal) Recommendations: Diet advancement per Surg-Onc- goal diet: Consistent Carbohydrate (60g/meal) + Protein shakes between meals, made with [place] Breakfast Essentials (NO SUGAR ADDED), skim milk, and 2 Protein powders to provide 230kcal and 25 grams protein per shake). EN advancement as ordered; if tolerating 45ml/hr, and team ready to compress to nocturnal regimen, recommend continuing with fiber-free formula for now- Nutren 1.5, goal rate 75ml/hr x 12hr. Prosource 2 packs/day. Would provide 1470kcal, 91g protein, 684ml free H2O. H2O boluses per team. Now that PICC placed & PN support started, would agree to continue PN until patient stable on goal rate EN + PO diet regimen without further anticipated prolonged NPO stints for procedures or s/s post-op ileus. Insulin adjustments outside PN for now given trajectory of TPN duration is unknown at this time The primary team is responsible for any PN changes on weekends/holidays. No action needs to be taken if no changes are desired. NSS is available by pager [phone] for assistance. Adrienne Carlos, RD, LD, [facility] *[phone] * César Davis MD - 12/31/2017 8:01 AM CDT Formatting of this note may be different from the original. Subjective: No acute events overnight. Complains of abdominal pain and phantom limb pain this morning. Objective: Blood pressure 124/63, pulse 106, temperature 37 C (98.6 F), height 162.6 cm (64"), weight 98.5 kg (217 lb 2.5 oz), SpO2 93 %. General: AAOx3, NAD Cardiac: tachycardic Respirations: Unlabored Extremities: LLE hemipelvectomy, dressings with mild serous drainage posteriorly , eschar about the posterior aspect of the incision with no significant incisional erythema, no current signs or concern of wound infection Post-op Drains: (24 hours) No results for input(s): PTT, INR in the last 72 hours. CBC w/Diff Lab Results Component Value Date/Time WBC 17.0 (H) 12/30/2017 08:35 AM HGB 8.3 (L) 12/30/2017 08:35 AM HCT 24.5 (L) 12/30/2017 08:35 AM PLTCT 539 (H) 12/30/2017 08:35 AM Basic Metabolic Profile Lab Results Component Value Date/Time NA 134 (L) 12/31/2017 03:30 AM K 4.3 12/31/2017 03:30 AM CL 100 12/31/2017 03:30 AM CO2 25 12/31/2017 03:30 AM GAP 9 12/31/2017 03:30 AM Lab Results Component Value Date/Time BUN 15 12/31/2017 03:30 AM CR 0.86 12/31/2017 03:30 AM GLU 255 (H) 12/31/2017 03:30 AM A/P: 52 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 -Diet: CLD -Melchor catheter x4 wks minimum -Maintain dressings, ortho to manage - reinforce as needed -Orals for pain control, gabapentin- Nursing pain management consult -Resume xarelto for DVT -Please do not leave flat for extended periods of time, patient to lay onto her right side as much as possible -Acute blood loss anemia - Hgb 7.7, will continue to monitor -Rehab consult- appreciate recs -Strongly recommend patient be discharged to IRF instead of SNF, would prefer [facility] -Psych, HUMAN [employer] RECEPTIONIST psych and psychology consults for coping, depression - appreciate assistance -IM consult for hyponatremia and diabetes management- appreciate recs -ID consult for persistent leukocytosis and fevers - Zosyn, micafungin -Nutrition following for optimization - TPN -General Surgery consult - colostomy 12/30 Dispo: Continue inpatient care César Davis MD [phone] * Kerline Kruger, RN - 12/31/2017 8:00 AM CDT Beata Kaiser accepted education and was engaged. she verbalized understanding. The following was discussed: Plan of care reviewed with patient. Patient verbalized understanding of plan of care and anticipating working with PT and OT. Scheduled and PRN medications reviewed with patient. Follow up should occur as needed. Continue to address: Diabetes education Kerline Kruger RN * Cherri Marmolejo, SANJAY - 12/31/2017 6:34 AM CDT Surgery-Onc at bedside rounding and stated okay to have CLD and meds. No orders reiceved. Surgery resident, Dr Barrow #[phone] paged. Orders received. Primary RN notified and will administer gabapentin per patient request for phantom limb pain. * Kerline Kruger, SANJAY - 12/30/2017 7:03 PM CDT I have reviewed the notes, assessment, and/or procedures performed by Ana Eller ([facility] student) and concur with her/his documentation unless otherwise noted. * Kerline Kruger RN - 12/30/2017 5:26 PM CDT Spoke with surgical oncology team about patients diet after receiving the colostomy. The team stated that the patient will need to remain on a strict NPO diet for at least 24 hours or when they deem appropriate. This includes no medications PO or through the corpak. Patient is receiving a PICC line placement and will start TPN at [address] Davis about pain control. IV fentanyl Q 1 hour is the only pain medication that will be available to give. Dr. Davis gave orders for a Fentanyl DIRECTOR PHARMACOLOGY with the settings of 10/6/0/10. Orders in place, nothing further at this time. * Indy Isabel MD - 12/30/2017 4:38 PM CDT Formatting of this note may be different from the original. Infectious Diseases Progress Note Today's Date: 12/30/2017 Admission Date: 12/13/2017 Reason for this consultation: Consult Type: Co-Management w/Signed Orders Reason for consult S/p hemipelvectomy 12/14 for chondrosarcoma, inreasing leukocytosis w/out clear source Assessment: # Persistent Leukocytosis - Unclear etiology - Considered fluconazole resistant Aracely UTI, but repeat urine culture negative - ? Candidal intertrigo - groin/mons # GBS bacteremia w sepsis - Fever and leukocytosis began 12/20/17 - 4/3 L lower lobe infiltrate - read as atelectasis - 12/20 C. diff negative - 12/23 Bcx 09/21 set group B streptococcus; source seems most likely intra-pelvic - CT pelvis 12/25: "Ill-defined fluid and air along the anterior margin of the surgical site away from the drain tip. However, no discrete drainable fluid collection is noted." # Candiduria - 12/21/17 UA: wbc 2-10, negative nitrite, 1+ luukocytes, Culture > 100,000 Aracely sp - Sensitivities not done, unsure if fluconazole susceptible; repeat urine culture negative 12/28 - Treating given indwelling melchor and inability to remove melchor d/t recent bladder repair # s/p hemipelvectomy for Chondrosarcoma - 11/25/17 [...] Stool saturating wound. Diverting colostomy done 12/30. # DVT - 11/30/17 IVC filter for DVT within the external iliac vein # Obese # HTN # DM # Hypothyroidism # Depression # Generalized pain # abx allergy - allergic history to Cephalexin 'years ago' with skin rash and hot flash - tolerated Penicillin when she had dental caries Recommendations: 1. Continue Zosyn 2. Will switch to micafungin today with persistent leukocytosis, concern for fluconazole resistance, candidal intertrigo 3. Monitor wounds closely for progressive cellulitis/wound breakdown 4. Monitor for abx toxicity 5. Trend temp, CBC 6. Consider interdry for the groin to reduce moisture and skin breakdown/ maceration - defer to wound team Will follow. Staffed with attending, Dr. Isabel. ATTESTATION Pt not seen today as she was in OR. I discussed the case with Dr. Pedro, the Infectious Diseases fellow. I concur with her findings documented in this note. I personally reviewed the history, laboratory and microbiology data as well as imaging studies today. The content of this consult was modified by me where necessary. Indy Isabel MD Date: 12/30/2017 Pager: [phone] Interval History Afebrile, stable vitals. To OR today for diverting colostomy, seen in PACU. Wounds dressed. ROS - abdominal pain mostly around the colostomy site. Denies pain during palpation of the mons pubis or around the other abdominal incisions today. No nausea, vomiting, headache. WBC 17, up slightly today again UA 10-20 WBC, few bacteria and yeast - culture negative Antimicrobial Start date End date Erythromycin 12/13 Neomycin 12/13 12/13 Polymyxin B 12/14 12/14 Gentamycin 12/14 12/15 Clindamycin 12/14 12/22 Pip/tazo 4/4 active Fluconazole 12/22 active Vancomycin 12/23 12/27 Estimated Creatinine Clearance: 88.2 mL/min (based on SCr of 0.85 mg/dL). Medications Scheduled Meds: acetaminophen (TYLENOL) tablet 1,000 mg 1,000 mg Oral Q6H* buPROPion (WELLBUTRIN) tablet 100 mg 100 mg Oral TID busPIRone (BUSPAR) tablet 15 mg 15 mg Oral BID gabapentin (NEURONTIN) capsule 600 mg 600 mg Oral Q6H insulin aspart U-100 (NOVOLOG FLEXPEN) injection PEN 0-14 Units 0-14 Units Subcutaneous 5 X Day insulin aspart U-100 (NOVOLOG FLEXPEN) injection PEN 6 Units 6 Units Subcutaneous TID w/ meals insulin glargine (LANTUS SOLOSTAR, BASAGLAR) injection PEN 16 Units 16 Units Subcutaneous QHS lactobacillus rhamnosus GG (CULTURELLE) 15 billion cell capsule 1 capsule 1 capsule Oral BID w/meals levothyroxine (SYNTHROID) tablet 175 mcg 175 mcg Oral QDAY before breakfast metroNIDAZOLE (FLAGYL) tablet 500 mg 500 mg Oral Q8H* micafungin (MYCAMINE) 100 mg in sodium chloride 0.9% (NS) 100 mL IVPB (MB+) 100 mg Intravenous Q24H* neomycin tablet 500 mg 500 mg Oral Q6H* pantoprazole DR (PROTONIX) tablet 40 mg 40 mg Oral QDAY(21) piperacillin/tazobactam (ZOSYN) 4.5 g/100 mL iso-osmotic IVPB 4.5 g Intravenous Q6H* rivaroxaban (XARELTO) tablet 20 mg 20 mg Oral QDAY w/breakfast vitamin A & D topical ointment Topical BID Continuous Infusions: Adult Parenteral Nutrition (PN) Stopped (12/29/171956) Adult Parenteral Nutrition (TPN) lactated ringers infusion 1,000 mL (12/30/17 0839) PRN and Respiratory Meds:alum/mag hydroxide/simeth Q6H PRN, calcium carbonate Q4H PRN, diazePAM Q6H PRN, diphenhydrAMINE Q6H PRN OR [DISCONTINUED] diphenhydrAMINE Q6H PRN, fentaNYL citrate PF Q1H PRN, ondansetron (ZOFRAN) IV Q6H PRN, oxyCODONE Q3H PRN, pancrelipase 20,000 Units/ sodium bicarbonate 650 mg (#) PRN (Sharepoint Application 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 Rx) Physical Examination Vital Signs: Last Vital Signs: 24 Hour Range BP: 107/65 (12/30 1605) Temp: 36.6 C (97.9 F) (12/30 1500) Pulse: 106 (12/30 1605) Respirations: 16 PER MINUTE (12/30 1605) SpO2: 96 % (12/30 1605) O2 Delivery: None (Room Air) (12/30 1605) SpO2 Pulse: 100 (12/30 1415) Height: 162.6 cm (64") (12/30 0820) BP: (88-153)/(62-101) Temp: [36.4 C (97.6 F)-37.2 C (98.9 F)] Pulse: [93-113] Respirations: [11 PER MINUTE-22 PER MINUTE] SpO2: [92 %-100 %] O2 Delivery: None (Room Air) General appearance: obese, alert, oriented, NAD, seen in PACU HENT: mucus membranes dry, no oral lesions/thrush Eyes: EOMI, normal conj Lungs: no wheezing, rhonchi, rales appreciated Heart: Regular rhythm, reg rate, with no murmur, rub, gallop Abdomen: obese, normal garcia sounds, soft, non-tender, non distended Ext: s/p left hemipelvectomy; incision w dressing in place. There are areas of necrosis- along pannus, and in vulvar area. The area in pannus is stable today. New colostomy placed w/ stool in bag. Less drainage today but still some mild serosanguinous drainage from the left more posterior incision. Mons pubis/ groin very moist with erythema, some areas of induration and maceration around the melchor entrance site, not tender to palpation, mildly warm. Edema present in the skin. Skin: no generalized rashes Psych: flat affect Lines: Indwelling melchor catheter Lab Review Hematology Recent Labs 12/28/17 0400 12/29/17 0451 12/30/17 0835 WBC 17.7* 16.4* 17.0* HGB 8.2* 7.7* 8.3* HCT 23.8* 22.8* 24.5* PLTCT 426* 434* 539* Chemistry Recent Labs 12/28/17 0400 12/29/17 0451 12/30/17 0458 NA 131* 134* 132* K 4.2 4.5 4.3 CL 97* 100 98 CO2 27 29 28 BUN 12 14 10 CR 0.89 0.85 0.85 GFR >60 >60 >60 GLU 199* 271* 165* CA 8.3* 8.4* 8.6 PO4 -- -- 4.1* ALBUMIN -- -- 2.2* ALKPHOS -- -- 127* AST -- -- 47* ALT -- -- 51 TOTBILI -- -- 0.3 Microbiology, Radiology and other Diagnostics Review Microbiology data reviewed. Chari Pedro DO Pager [phone] ID fellow * Kerline Kruger, SANJAY - 12/30/2017 3:59 PM CDT Patient arrived back on unit via bed. Assessment completed, refer to flowsheet for details. Orders released, reviewed, and implemented as appropriate. Re- oriented to surroundings, call light within reach. Plan of care reviewed. Will continue to monitor and assess. * Cass Toledo, RN - 12/30/2017 2:[address] Agudelo at the bedside. Assessed Colostomy and anal drainage. * Lexus Shirley, LELAND - 12/30/2017 2:10 PM CDT OCCUPATIONAL THERAPY NOTE Patient to OR this date. OT will continue to follow and provide intervention as indicated post-operatively. Therapist: Lexus Shirley OTR/L [id number] Date: 12/30/2017 * Cassandra Villatoro - 12/30/2017 2:05 PM CDT PHYSICAL THERAPY NOTE Patient was unavailable for physical therapy (to OR). Physical therapy will continue to follow and provide intervention as indicated. Therapist: Cassandra Villatoro Date: 12/30/2017 * Lynn Barrera - 12/30/2017 10:32 AM CDT PHYSICAL THERAPY MOBILITY NOTE Patient was assigned for activity with the mobility aide by the supervising therapist. Patient is unavailable. Patient in OR today. Will hold on mobility aide session on this date. Will continue to see as indicated by supervising therapist. Aide: Lynn Barrera Date: 12/30/2017 * Nneka Thompson RD - 12/30/2017 10:05 AM CDT Formatting of this note may be different from the original. CLINICAL NUTRITION Nutrition Support Service (NSS) Progress Note Recommendation: Please discontinue nocturnal TFs order while Pt is NPO. Comment: Pt in OR today for colostomy placement, TPN to start once Pt has returned from OR. Current PN Formula: Nonstandard TPN at 65ml/hr - 1560ml total volume Macronutrients: AA 110gm, Dex 120 gm, Lipids 250 ml Lytes/Additives: Na 120 mEq, K 40 mEq, Ca 10 mEq, Mg 8 mEq, Phos 14 mmol, Standard MV and trace elements, All Cl - Thiamine 100mg. Regular insulin 6 units Provides: 1348 kcals (24 kcals/kg DBW), 110 gm AA (2.0 gm/kg DBW) Diet Order: NPO TF: on hold I/O: 460/1750ml (incomplete?) UOP: 1600ml Last BM: 12/30 Meds: Scheduled Meds: [NOV Hold] acetaminophen (TYLENOL) tablet 1,000 mg 1,000 mg Oral Q6H* [NOV Hold] buPROPion (WELLBUTRIN) tablet 100 mg 100 mg Oral TID [NOV Hold] busPIRone (BUSPAR) tablet 15 mg 15 mg Oral BID fluconazole (DIFLUCAN) tablet 400 mg 400 mg Oral QDAY gabapentin (NEURONTIN) capsule 600 mg 600 mg Oral Q6H [NOV Hold] insulin aspart U-100 (NOVOLOG FLEXPEN) injection PEN 0-14 Units 0-14 Units Subcutaneous 5 X Day [NOV Hold] insulin aspart U-100 (NOVOLOG FLEXPEN) injection PEN 6 Units 6 Units Subcutaneous TID w/ meals insulin glargine (LANTUS SOLOSTAR, BASAGLAR) injection PEN 16 Units 16 Units Subcutaneous QHS [NOV Hold] lactobacillus rhamnosus GG (CULTURELLE) 15 billion cell capsule 1 capsule 1 capsule Oral BID w/meals [NOV Hold] levothyroxine (SYNTHROID) tablet 175 mcg 175 mcg Oral QDAY before breakfast metroNIDAZOLE (FLAGYL) tablet 500 mg 500 mg Oral Q8H* neomycin tablet 500 mg 500 mg Oral Q6H* [MAR Hold] pantoprazole DR (PROTONIX) tablet 40 mg 40 mg Oral QDAY(21) piperacillin/tazobactam (ZOSYN) 4.5 g/100 mL iso-osmotic IVPB 4.5 g Intravenous Q6H* [NOV Hold] rivaroxaban (XARELTO) tablet 20 mg 20 mg Oral QDAY w/breakfast [Nov] vitamin A & D topical ointment Topical BID [Nov] vitamins, multi w/minerals tablet 1 tablet 1 tablet Oral QDAY Continuous Infusions: Adult Parenteral Nutrition (PN) [NOV Hold] Adult Parenteral Nutrition (PN) Stopped (12/29/171956) lactated ringers infusion 1,000 mL (12/30/17 08) PRN and Respiratory Meds:[Nov] alum/mag hydroxide/simeth Q6H PRN, [NOV Hold ] calcium carbonate Q4H PRN, [Nov] diazePAM Q6H PRN, [Nov] diphenhydrAMINE Q6H PRN OR [DISCONTINUED] diphenhydrAMINE Q6H PRN, [Nov ] fentaNYL citrate PF Q1H PRN, [NOV Hold] ondansetron (ZOFRAN) IV Q6H PRN, [NOV Hold] oxyCODONE Q3H PRN, [NOV Hold] pancrelipase 20,000 Units/ sodium bicarbonate 650 mg(#) PRN (Sharepoint Application 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 Rx) Electrolyte Treatments: None noted yesterday or today Pertinent Labs: Comprehensive Metabolic Profile Lab Results Component Value Date/Time NA 132 (L) 12/30/2017 04:58 AM K 4.3 12/30/2017 04:58 AM CL 98 12/30/2017 04:58 AM CO2 28 12/30/2017 04:58 AM GAP 6 12/30/2017 04:58 AM BUN 10 12/30/2017 04:58 AM CR 0.85 12/30/2017 04:58 AM GLU 165 (H) 12/30/2017 04:58 AM Lab Results Component Value Date/Time CA 8.6 12/30/2017 04:58 AM PO4 4.1 (H) 12/30/2017 04:58 AM ALBUMIN 2.2 (L) 12/30/2017 04:58 AM TOTPROT 5.7 (L) 12/30/2017 04:58 AM ALKPHOS 127 (H) 12/30/2017 04:58 AM AST 47 (H) 12/30/2017 04:58 AM ALT 51 12/30/2017 04:58 AM TOTBILI 0.3 12/30/2017 04:58 AM GFR >60 12/30/2017 04:58 AM GFRAA >60 12/30/2017 04:58 AM Lab Results Component Value Date MG 2.0 12/30/2017 FSBS: (prior to TPN start) 160, 184 Admit Weight (Kg): Weight: 104.8 kg (231 lb 0.7 oz) Current Weight (Kg): Weight: 98.5 kg (217 lb 2.5 oz) Estimated Kcal Needs: 1660 (30 kcals/kg per DBW 55.3 kg due to large surgical wound) Estimated Protein Needs: 100-120(1.8-2.2g/kg desired wt of 55.3kg.) A/P: Beata Kaiser is a 52 y.o. 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 Pt's weight went down 28# or 12% s/p removal of her leg, 203# (12/18). Latest weight shows a 14# increase in 9 days, likely due to fluid. Pt has continued to have decreased PO intake, with average PO intake of 600 kcals, 33 gm per day per calorie count. Yet Per fellow RD, all of Pt's intake of [place] shakes may not be included in the number. Noted nocturnal TFs ordered 12/27, yet not started until 12/28 due to trouble obtaining post-pyloric corpak placement. Noted only 283 ml of enteral formula recorded as given last night. Pt has been having issues with stool soilage prohibiting wound healing so plan for colostomy placement tomorrow 12/29. NSS consulted for TPN to start tomorrow morning after Pt returns from OR, due to "High serous drain output with low albumin with concern for protein malnutrition and inability for fluid to stay intravascular. Patient undergoing colostomy 12/30 and will likely be NPO or diet restricted for several days. Need nutrition optimization for wound healing of both large hemipelvectomy wound and new colostomy." NSS RD agrees with starting TPN to bridge Pt thru this next surgery and possible post-op ileus. Pt's nutritional status has been sub-optimal for most of her stay and Pt is now at HD #17. Pt does not currently have a central line. Per primary team, plan is to have a line placed in OR today. First TPN bag should be on the floor awaiting Pt to return form OR. Reviewed today's AM labs, noted high Phos at 4.1. Will decrease Phos in Pt's next TPN bag. PN Changes: Decreased Phos from 14 to 8 mmol PN to provide 1348 kcals (81% of goal) and 110 g protein (100% of goal) Nneka Thompson MS, RD, LD, [facility] Pager [phone] Office [phone] * Aimee Mccollum DO - 12/30/2017 8:22 AM CDT Formatting of this note may be different from the original. Surgical Progress Note Today's Date: 12/30/2017 Name: Beata Kaiser Admission Date: 12/13/2017 LOS: 17 days Assessment/Plan: Principal Problem: Pelvic mass Active Problems: Pelvic mass in female Metabolic acidosis Acute blood loss as cause of postoperative anemia Depression Anxiety DM (diabetes mellitus) (HCC) Hypothyroidism Hemorrhagic shock (HCC) Chronic pain Need for colostomy . Consent in chart dw patient and family Subjective: Post-op Day: 12 Beata Kaiser is a 52 y.o. female. Overnight Events:No new events noted . Patient knows plans. Objective: Medications: Scheduled Meds: [NOV Hold] acetaminophen (TYLENOL) tablet 1,000 mg 1,000 mg Oral Q6H* [NOV Hold] buPROPion (WELLBUTRIN) tablet 100 mg 100 mg Oral TID [NOV Hold] busPIRone (BUSPAR) tablet 15 mg 15 mg Oral BID fluconazole (DIFLUCAN) tablet 400 mg 400 mg Oral QDAY gabapentin (NEURONTIN) capsule 600 mg 600 mg Oral Q6H [NOV Hold] insulin aspart U-100 (NOVOLOG FLEXPEN) injection PEN 0-14 Units 0-14 Units Subcutaneous 5 X Day [NOV Hold] insulin aspart U-100 (NOVOLOG FLEXPEN) injection PEN 6 Units 6 Units Subcutaneous TID w/ meals [NOV Hold] insulin glargine (LANTUS SOLOSTAR, BASAGLAR) injection PEN 14 Units 14 Units Subcutaneous QHS [NOV Hold] lactobacillus rhamnosus GG (CULTURELLE) 15 billion cell capsule 1 capsule 1 capsule Oral BID w/meals [NOV Hold] levothyroxine (SYNTHROID) tablet 175 mcg 175 mcg Oral QDAY before breakfast metroNIDAZOLE (FLAGYL) tablet 500 mg 500 mg Oral Q8H* neomycin tablet 500 mg 500 mg Oral Q6H* [NOV Hold] pantoprazole DR (PROTONIX) tablet 40 mg 40 mg Oral QDAY() piperacillin/tazobactam (ZOSYN) 4.5 g/100 mL iso-osmotic IVPB 4.5 g Intravenous Q6H* [NOV Hold] rivaroxaban (XARELTO) tablet 20 mg 20 mg Oral QDAY w/breakfast [Nov] vitamin A & D topical ointment Topical BID [Nov] vitamins, multi w/minerals tablet 1 tablet 1 tablet Oral QDAY Continuous Infusions: [Nov] Adult Parenteral Nutrition (PN) Stopped (12/29/171956) lactated ringers infusion PRN and Respiratory Meds:[Nov] alum/mag hydroxide/simeth Q6H PRN, [Nov ] calcium carbonate Q4H PRN, [NOV Hold] diazePAM Q6H PRN, [NOV Hold] diphenhydrAMINE Q6H PRN OR [DISCONTINUED] diphenhydrAMINE Q6H PRN, [Nov ] fentaNYL citrate PF Q1H PRN, [NOV Hold] ondansetron (ZOFRAN) IV Q6H PRN, [NOV Hold] oxyCODONE Q3H PRN, [NOV Hold] pancrelipase 20,000 Units/ sodium bicarbonate 650 mg(#) PRN (Sharepoint Application 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 Rx) Vital Signs: Last Filed Vital Signs: 24 Hour Range BP: 123/76 (12/31 819) Temp: 36.9 C (98.4 F) (12/31 819) Pulse: 106 (12/31 819) Respirations: 15 PER MINUTE (12/31 819) SpO2: 94 % (12/31 819) O2 Delivery: None (Room Air) (12/31 819) Height: 162.6 cm (64") (12/31 819) BP: (113-153)/(62-95) Temp: [36.4 C (97.6 F)-37.2 C (98.9 F)] Pulse: [103-113] Respirations: [15 PER MINUTE-18 PER MINUTE] SpO2: [93 %-100 %] O2 Delivery: None (Room Air) Intensity Pain Scale 0-10 (Pain 1): (not recorded) Intake/Output Summary : (Last 24 hours) Intake/Output Summary (Last 24 hours) at 12/30/17822 Last data filed at 12/30/17 0100 Gross per 24 hour Intake 460 ml Output 2900 ml Net -2440 ml Post-op Drains: (24 hours) None Physical Exam: General: Alert, cooperative, no distress, appears stated age Lungs: Clear to auscultation bilaterally Abdomen: Soft, non-tender. Bowel sounds normal. No masses. No organomegaly. Incisions: clean, dry, intact Lab Review: Results for orders placed or performed during the hospital encounter of (from the past 24 hour(s)) POC GLUCOSE Collection Time: 12/29/17 11:56 AM Result Value Ref Range Glucose, POC 281 (H) 70 - 100 MG/DL POC GLUCOSE Collection Time: 12/29/17 5:41 PM Result Value Ref Range Glucose, POC 335 (H) 70 - 100 MG/DL POC GLUCOSE Collection Time: 12/29/17 6:40 PM Result Value Ref Range Glucose, POC 373 (H) 70 - 100 MG/DL POC GLUCOSE Collection Time: 12/29/17 9:08 PM Result Value Ref Range Glucose, POC 267 (H) 70 - 100 MG/DL POC GLUCOSE Collection Time: 12/30/17 3:57 AM Result Value Ref Range Glucose, POC 160 (H) 70 - 100 MG/DL COMPREHENSIVE METABOLIC PANEL Collection Time: 12/30/17 4:58 AM Result Value Ref Range Sodium 132 (L) 137 - 147 MMOL/L Potassium 4.3 3.5 - 5.1 MMOL/L Chloride 98 98 - 110 MMOL/L Glucose 165 (H) 70 - 100 MG/DL Blood Urea Nitrogen 10 7 - 25 MG/DL Creatinine 0.85 0.4 - 1.00 MG/DL Calcium 8.6 8.5 - 10.6 MG/DL Total Protein 5.7 (L) 6.0 - 8.0 G/DL Total Bilirubin 0.3 0.3 - 1.2 MG/DL Albumin 2.2 (L) 3.5 - 5.0 G/DL Alk Phosphatase 127 (H) 25 - 110 U/L AST (SGOT) 47 (H) 7 - 40 U/L CO2 28 21 - 30 MMOL/L ALT (SGPT) 51 7 - 56 U/L Anion Gap 6 3 - 12 eGFR Non >60 >60 mL/min eGFR >60 >60 mL/min PHOSPHORUS Collection Time: 12/30/17 4:58 AM Result Value Ref Range Phosphorus 4.1 (H) 2.0 - 4.0 MG/DL MAGNESIUM Collection Time: 12/30/17 4:58 AM Result Value Ref Range Magnesium 2.0 1.6 - 2.6 mg/dL TRIGLYCERIDE Collection Time: 12/30/17 4:58 AM Result Value Ref Range Triglycerides 198 (H) <150 MG/DL Point of Care Testing: (Last 24 hours): FSBS (Manual): (!) 160 (12/30/17 0358) Glucose: (!) 165 (12/30/17 2858) POC Glucose (Download): (!) 160 (12/30/17 9830) Aimee Mccollum DO Pager [phone] * César Davis MD - 12/30/2017 7:54 AM CDT Formatting of this note may be different from the original. Subjective: No acute events overnight. Pain well controlled. No new complaints. Objective: Blood pressure 122/77, pulse 109, temperature 37.1 C (98.8 F), height 162.6 cm (64"), weight 98.5 kg (217 lb 2.5 oz), SpO2 95 %. General: AAOx3, NAD Cardiac: tachycardic Respirations: Unlabored Extremities: LLE hemipelvectomy, dressings with mild serous drainage posteriorly , eschar about the posterior aspect of the incision with no significant incisional erythema, no current signs or concern of wound infection Post-op Drains: (24 hours) No results for input(s): PTT, INR in the last 72 hours. 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 -Diabetic diet, protein shakes between meals, 6 small meals -Melchor catheter x4 wks minimum -Maintain dressings, ortho to manage - reinforce as needed -Orals for pain control, gabapentin- Nursing pain management consult -Resume xarelto for DVT -Please do not leave flat for extended periods of time, patient to lay onto her right side as much as possible -Acute blood loss anemia - Hgb 7.7, will continue to monitor -Rehab consult- appreciate recs -Strongly recommend patient be discharged to IRF instead of SNF, would prefer [facility] -Psych, H[employer] RECEPTIONIST psych and psychology consults for coping, depression - appreciate assistance -IM consult for hyponatremia and diabetes management- appreciate recs -ID consult for persistent leukocytosis and fevers - Katrinasyn, appreciate recs -Nutrition following for optimization- nocturnal tube feeds -General Surgery consult- plan for colostomy 12/30 Dispo: NPO for colostomy today César Davis MD [phone] * Grace Smith, SANJAY - 12/30/2017 3:17 AM CDT Pt bowels are not clear. RN paged Onc to see what step to take next to get pt to clear bowels. Onc clinical practice consultant stated that there was no further action since the bowel regiment was completed. * Cherri Marmolejo, SANJAY - 12/29/2017 10:[address] Burt notified that dressing changed due to being soiled during bowel prep. * Lina Lea RN - 12/29/2017 6:36 PM CDT I have reviewed the notes, assessment, and/or procedures performed by SN Abhishek, and concur with her/his documentation unless otherwise noted. * BruceJosuein - 12/29/2017 3:30 PM CDT PHYSICAL THERAPY MOBILITY NOTE Patient was assigned for activity with the mobility aide by the supervising therapist. Spoke with nursing and mutually agreed to hold off on mobility session at this afternoon. Patient is currently resting and recovering from session with Physical Therapy approximately an hour prior to this attempted visit. 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: Lynn Bruce Date: 12/29/2017 * Chari Moon - 12/29/2017 2:00 PM CDT PHYSICAL THERAPY PROGRESS NOTE MOBILITY: Mobility Progressive Mobility Level: Active transfer to chair Level of Assistance: Assist X2 Assistive Device: Walker Time Tolerated: 1-2 hours Activity Limited By: Fatigue;Pain;Weakness SUBJECTIVE: Subjective Significant hospital events: 52 y/o F with history of left osteosarcoma s/p left hemipelvectomy, cystorrhaphy and bladder neck repair, cystoscopy, and left iliac exposure 12/14/17 Mental / Cognitive Status: Alert;Oriented;Cooperative Persons Present: Daughter;Spouse (Supervising [employer]TERN GRADER) Pain: Patient complains of pain Pain Location: Left;Hip Pain Interventions: Patient agrees to participate in therapy L LE Precautions: LLE Non-Weight Bearing Comments: Lay on right side as much as possible for edema management per Ortho note 12/16; Don't lie flat for extended periods of time Ambulation Assist: Independent Mobility in Community without Device Patient Owned Equipment: Crutches Home Situation: Lives with Family Type of Home: House Entry Stairs: 1-2 Stairs In-Home Stairs: No Stairs BED MOBILITY/TRANSFERS: Bed Mobility/Transfers Bed Mobility: Supine to Sit: Moderate Assist;Head of Bed Elevated;Use of Rail; Assist with Trunk Bed Mobility: Sit to Supine: Minimal Assist;x2 People;Use of Rail;Bed Flat; Assist with R LE Transfer Type: Sit to/from Stand Transfer: Assistance Level: To/From;Bed;Moderate Assist;x2 People Transfer: Assistive Device: Roller Walker Transfers: Type Of Assistance: Verbal Cues;Elevated Bed;Knees(s) Blocked;For Balance;For Strength Deficit Other Transfer Type: Stand Pivot Other Transfer: Assistance Level: To;Bed Side Chair;From;Bed; Moderate Assist x2 People Other Transfer: Assistive Device: Roller Walker Other Transfer: Type Of Assistance: Knees(s) Blocked;Verbal Cues;Elevated Bed; For Balance;For Strength Deficit End Of Activity Status: In Bed;Nursing Notified Comments: Following static standing, pt stated she felt weak and tired but was willing to perform a stand pivot transfer from the edge of the bed to the bed side chair. Due to pt fatigue following sitting up in bedside chair for 15 minutes, a sit to stand lift was utilized to transfer the pt from the bedside chair back to the bed. BALANCE: Balance Sitting Balance: Static Sitting Balance Standing Balance: Static Standing Balance Comments: Pt was able to sit unsupported on the edge of the bed for 15 minutes. Pt required moderate assistance to scoot L hip to the edge of the bed to increase R LE weight bearing and support. Pt was able to stand with moderate assistance x2 for UE support and R knee block for 2 minutes and 12 seconds. Pt was able to achieve terminal knee extension on her own when in standing position. ACTIVITY/EXERCISE: Activity / Exercise Sit Edge Of Bed: 15 minutes Sit Edge Of Bed Assist: Stand By Assist Stand At Bedside : (2 minutes and 12 seconds) Stand At Bedside Assist: Moderate Assist;x2 People (R knee block and B UE support) Activity Limited By: Complaint of Fatigue;Weakness EDUCATION: Education Persons Educated: Patient Patient Barriers To Learning: Pain;Anxiety Teaching Methods: Verbal Instruction Patient Response: Verbalized Understanding Topics: Mobility Progression;Use of Assistive Device/Orthosis Comments: Provided patient desensitization and limb loss support handouts. ASSESSMENT/PROGRESS: Assessment/Progress Impaired Mobility Due To: Pain;Post Surgical Precautions;Post Surgical Changes; Decreased Activity Tolerance Assessment/Progress: Should Improve w/ Continued PT AM-PAC 6 Clicks Basic Mobility Inpatient Turning from your back to your side while in a flat bed without using bed rails : A lot Moving from lying on your back to sitting on the side of a flatbed without using bedrails : A Lot Moving to and from a bed to a chair (including a wheelchair): A Lot Standing up from a chair using your arms (e.g. wheelchair, or bedside chair): A Lot To walk in hospital room: Total Climbing 3-5 steps with a railing: Total Raw Score: 10 Standardized (T-scale) Score: 28.13 Basic Mobility CMS 0-100%: 71.92 CMS G Code Modifier for Basic Mobility: CL GOALS: Goals Goal Formulation: With Patient Time For Goal Achievement: 7 days Pt Will Go Supine To/From Sit: w/ Moderate Assist Pt Will Transfer Bed/Chair: w/ Moderate Assist Pt Will Transfer Sit to Stand: w/ Moderate Assist PLAN: Plan Treatment Interventions: Mobility Training Plan Frequency: 5-7 Days per Week Comments: Stand Pivot transfers, increase standing tolerance, dynamic sitting balance RECOMMENDATIONS: PT Discharge Recommendations PT Discharge Recommendations: Inpatient Setting Recommend ongoing assistance for: Transfers;Bed mobility;Ambulation;In and out of house;Stairs;Toileting Therapist: Chari Moon Date: 12/29/2017 Associated attestation - Cassandra Villatoro - 12/29/2017 4:20 PM CDT I was present and involved in directing the care of the patient throughout the physical therapy session. * Indy Isabel MD - 12/29/2017 1:35 PM CDT Formatting of this note may be different from the original. Infectious Diseases Progress Note Today's Date: 12/29/2017 Admission Date: 12/13/2017 Reason for this consultation: Consult Type: Co-Management w/Signed Orders Reason for consult S/p hemipelvectomy 12/14 for chondrosarcoma, inreasing leukocytosis w/out clear source Assessment: # Persistent Leukocytosis # GBS bacteremia w sepsis - Fever and leukocytosis began 12/20/17 - 4/3 L lower lobe infiltrate - read as atelectasis - 12/20 C. diff negative - 12/23 Bcx 09/21 set group B streptococcus; source seems most likely intra-pelvic - CT pelvis 12/25: "Ill-defined fluid and air along the anterior margin of the surgical site away from the drain tip. However, no discrete drainable fluid collection is noted." # Candiduria - 12/21/17 UA: wbc 2-10, negative nitrite, 1+ luukocytes, Culture > 100,000 Aracely sp - Sensitivities not done, unsure if fluconazole susceptible; may repeat if WBC increases - Treating given indwelling melchor and inability to remove melchor d/t recent bladder repair # s/p hemipelvectomy for Chondrosarcoma - 11/25/17 [...] repair of urethral injury, Vaginal closure. - Surgery evaluating for possible diverting colostomy, stool saturating wound. Plan for OR 12/30. # DVT - 11/30/17 IVC filter for DVT within the external iliac vein # Obese # HTN # DM # Hypothyroidism # Depression # Generalized pain # abx allergy - allergic history to Cephalexin 'years ago' with skin rash and hot flash - tolerated Penicillin when she had dental caries Recommendations: 1. Continue Zosyn 2. If recurrent fever and persistent WBC, repeat BC and change diflucan to Micafungin 3. FU urine culture - request full ID and sensi of yeast if culture + 4. Monitor wound closely for progressive cellulitis/wound breakdown 5. Monitor for atbx toxicity Complexity of medical decision making is high b/c of the multi-system nature of the infectious disease process and concerns about the complexity of the patient illness including the sensitivity of the organisms being treated, the potential for drug toxicity and interactions, concerns about immunologic function, and interplay of other issues. Interval History Low grade fever 100.1 last evening. Denies new c/o cough or sob n/v Reports only 1 stool yesterday- no diarrhea Wounds stable, dressing in place, MANNY still has significant output (540cc) ROS otherwise neg on 14 pt Discussed w nursing (confirmed no diarrhea), and daughter WBC 16.4 UA 10-20 WBC, few bacteria and yeast Antimicrobial Start date End date Erythromycin 12/13 Neomycin 12/13 12/13 Polymyxin B 12/14 12/14 Gentamycin 12/14 12/15 Clindamycin 12/14 12/22 Pip/tazo 12/22 active Fluconazole 12/22 active Vancomycin 12/23 12/27 Estimated Creatinine Clearance: 88.2 mL/min (based on SCr of 0.85 mg/dL). Medications Scheduled Meds: acetaminophen (TYLENOL) tablet 1,000 mg 1,000 mg Oral Q6H* buPROPion (WELLBUTRIN) tablet 100 mg 100 mg Oral TID busPIRone (BUSPAR) tablet 15 mg 15 mg Oral BID gabapentin (NEURONTIN) capsule 600 mg 600 mg Oral Q6H insulin aspart U-100 (NOVOLOG FLEXPEN) injection PEN 0-14 Units 0-14 Units Subcutaneous 5 X Day insulin aspart U-100 (NOVOLOG FLEXPEN) injection PEN 6 Units 6 Units Subcutaneous TID w/ meals insulin glargine (LANTUS SOLOSTAR, BASAGLAR) injection PEN 14 Units 14 Units Subcutaneous QHS lactobacillus rhamnosus GG (CULTURELLE) 15 billion cell capsule 1 capsule 1 capsule Oral BID w/meals levothyroxine (SYNTHROID) tablet 175 mcg 175 mcg Oral QDAY before breakfast pantoprazole DR (PROTONIX) tablet 40 mg 40 mg Oral QDAY(21) piperacillin/tazobactam (ZOSYN) 4.5 g/100 mL iso-osmotic IVPB 4.5 g Intravenous Q6H* rivaroxaban (XARELTO) tablet 20 mg 20 mg Oral QDAY w/breakfast vitamin A & D topical ointment Topical BID vitamins, multi w/minerals tablet 1 tablet 1 tablet Oral QDAY Continuous Infusions: Adult Parenteral Nutrition (PN) PRN and Respiratory Meds:alum/mag hydroxide/simeth Q6H PRN, calcium carbonate Q4H PRN, diazePAM Q6H PRN, diphenhydrAMINE Q6H PRN OR [DISCONTINUED] diphenhydrAMINE Q6H PRN, fentaNYL citrate PF Q1H PRN, ondansetron (ZOFRAN) IV Q6H PRN, oxyCODONE Q3H PRN, pancrelipase 20,000 Units/ sodium bicarbonate 650 mg (#) PRN (Sharepoint Application 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 Rx) Physical Examination Vital Signs: Last Vital Signs: 24 Hour Range BP: 140/87 (12/29 1130) Temp: 36.4 C (97.6 F) (12/29 1130) Pulse: 103 (12/29 1130) Respirations: 16 PER MINUTE (12/29 1130) SpO2: 95 % (12/29 1130) O2 Delivery: None (Room Air) (12/29 1131) BP: (119-142)/(69-87) Temp: [36.4 C (97.6 F)-37.8 C (100 F)] Pulse: [59-111] Respirations: [16 PER MINUTE-19 PER MINUTE] SpO2: [92 %-98 %] O2 Delivery: None (Room Air) General appearance: obese, alert, oriented, NAD HENT: mucus membranes dry, dobbhoff in place, no oral lesions/thrush Eyes: EOMI, normal conj Lungs: no wheezing, rhonchi, rales appreciated Heart: Regular rhythm, reg rate, with no murmur, rub, gallop Abdomen: obese, normal garcia sounds, soft, non-tender, non distended Ext: s/p left hemipelvectomy; incision w dressing in place. There are areas of necrosis- along pannus, and in vulvar area. The area in pannus is stable today. Less drainage today Skin: no rash Psych: flat affect Lines: Carlos Manuel torres drain L abdomen - serosanguinous output Indwelling melchor catheter Lab Review Hematology Recent Labs 12/27/17 0431 12/28/17 0400 12/29/17 0451 WBC 16.4* 17.7* 16.4* HGB 8.1* 8.2* 7.7* HCT 23.4* 23.8* 22.8* PLTCT 359 426* 434* Chemistry Recent Labs 12/27/17 0431 12/28/17 0400 12/29/17 0451 NA 133* 131* 134* K 3.8 4.2 4.5 CL 100 97* 100 CO2 27 27 29 BUN 7 12 14 CR 0.83 0.89 0.85 GFR >60 >60 >60 GLU 183* 199* 271* CA 8.0* 8.3* 8.4* Microbiology, Radiology and other Diagnostics Review Microbiology data reviewed. Indy Isabel MD Pager [phone] * Lexus Shirley, OT - 12/29/2017 11:06 AM CDT Formatting of this note may be different from the original. 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 Objective Psychosocial Status: Willing and Cooperative to Participate Persons Present: Daughter (rehab aide) Home Living Type of Home: House Home Layout: Performs ADL'S on One Level (2 steps to enter) Bathroom Shower / Tub: Tub/Shower Unit Prior Function Level Of [place]: Independent with ADLs and functional transfers Lives With: Spouse;Family (2 adult daughters and their SO) ADL's Where Assessed: Edge of Bed Grooming Assist: Stand By Assist Grooming Deficits: Setup;Wash/Dry Face Bathing Assist: Minimal Assist (for sitting balance, upper body bathing only) Bathing Deficits: Chest;L Arm;R Arm;Abdomen;Steadying;Verbal Cueing;Increased Time to Complete UE Dressing Assist: Stand By Assist UE Dressing Deficits: Setup;Thread RUE;Thread LUE;Pull Around Back Functional Transfer Assist: Moderate Assist Functional Transfer Deficits: (supine<>sit) Comment: Pt supine upon OT arrival. Pt able to complete supine<>sit with moderate assist for trunk. Pt able to sit edge of bed x20 minutes with minimal to stand by assist. Pt completed upper body bathing using 1 UE for support majority of time but 2 15 seconds periods using BUE for bathing tasks maintaining sitting balance. Pt complete dynamic reaching activity reaching from targets in L, R, and anterior planes with ability to return to midline sitting balance with stand by assist. Pt returned to supine at end of session with all needs within reach and bed alarm set. Activity Tolerance Endurance: 2/5 Tolerates 10-20 Minutes Exercise w/Multiple Rests Sitting Balance: 3/5 Sits w/o UE Support Up to 30 Seconds Cognition Overall Cognitive Status: WFL to Adequately Complete Self Care Tasks Safely Education Persons Educated: Patient Teaching Methods: Verbal Instruction;Demonstration Patient Response: Verbalized and Demo Understanding Topics: Role of OT, Goals for Therapy;ADL Compensatory Techniques Goal Formulation: With Patient Assessment Assessment: Decreased ADL Status;Decreased Endurance;Decreased Self-Care Trans; Decreased High-Level ADLs;Decreased UE Strength Prognosis: Good;w/Cont OT s/p Acute Discharge Goal Formulation: Patient AM-PAC 6 Clicks Daily Activity Inpatient Putting on and taking off regular lower body clothes?: Total Bathing (Including washing, rinsing, drying): A Lot Toileting, which includes using toilet, bedpan, or urinal: Total Putting on and taking off regular upper body clothing: A Lot Taking care of personal grooming such as brushing teeth: A Little Eating meals?: A Little Daily Activity Raw Score: 12 Standardized (t-scale) score: 30.6 CMS 0-100% Score: 66.57 CMS G Code Modifier: CL Plan Treatment Interventions: ADL Retraining;Functional Transfer Training;UE Strengthing/ROM;Endurance Training;Patient/Family Training;Compensatory Technique Education OT Frequency: 5x/week Plan for next visit: dynamic reaching activity sitting edge of bed, progress upright sitting tolerance ADL Goals Patient Will Perform Grooming: at Edge of Bed;w/ Stand By Assist;Met Patient Will Perform Toileting: w/ Moderate Assist;w/ Bedside Commode Functional Transfer Goals Pt Will Transfer To Bedside Commode: w/ Moderate Assist Pt Will Transfer To Toilet: w/ Minimum Assist OT Discharge Recommendations OT Discharge Recommendations: Inpatient Setting Equipment Recommendations: [facility] [place] Additional Information: Recommend ongoing assistance for: Transfers, Bed mobility, Dressing, Bathing, Toileting Therapist: SACHA Nath/Tapan [id number] Date: 12/29/2017 * Adrienne Zarate MD - 12/29/2017 10:36 AM CDT Formatting of this note may be different from the original. Subjective: No acute events overnight. Pain well controlled. Appetite improving. Tolerated corpak placement and tube feeds last night. Objective: Blood pressure 131/69, pulse 104, temperature 36.7 C (98.1 F), height 162.6 cm (64"), weight 98.5 kg (217 lb 2.5 oz), SpO2 93 %. General: AAOx3, NAD Cardiac: tachycardic Respirations: Unlabored Extremities: LLE hemipelvectomy, dressings with mild serous drainage posteriorly , eschar about the posterior aspect of the incision with no significant incisional erythema, no current signs or concern of wound infection Post-op Drains: (24 hours) MANNY: 540 ml, serous- drain removed today No results for input(s): PTT, INR in the last 72 hours. 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 -Diabetic diet, protein shakes between meals, 6 small meals -Melchor catheter x4 wks minimum -Maintain dressings, ortho to manage - reinforce as needed -MANNY drain removed -Orals for pain control, gabapentin- Nursing pain management consult -Resume xarelto for DVT -Please do not leave flat for extended periods of time, patient to lay onto her right side as much as possible -Acute blood loss anemia - Hgb 7.7, will continue to monitor -Rehab consult- appreciate recs -Strongly recommend patient be discharged to IRF instead of SNF, would prefer [facility] -Psych, HUMAN RESOURCES RECEPTIONIST psych and psychology consults for coping, depression - appreciate assistance -IM consult for hyponatremia and diabetes management- appreciate recs -ID consult for persistent leukocytosis and fevers - Radha, appreciate recs -Nutrition following for optimization- nocturnal tube feeds -General Surgery consult- plan for colostomy 12/30 Dispo: Continue inpatient care, NPO at ID and hold tube feeds Adrienne Zarate MD [id number] * Adair Colin MD - 12/28/2017 6:31 PM CDT Formatting of this note may be different from the original. Psychiatric Consultation Progress Note LOS: 15 days Current Psychotropic Meds: Wellbutrin 100 mg 3 times a day, BuSpar 15 mg twice a day. Assessment: 1. Adjustment disorder with mixed anxiety and depression 2. Other depression 3. Other anxiety Recommendations: With respect to anxiety and depression she appears a stable. Discussed Wellbutrin XL 300 mg once a day option, however, patient tried Wellbutrin XL previously which was not as effective. Continue wellbutrin 100mg po TID, Buspar 30mg po BID for mood/anxiety. QTC 447 on 12/15. Continues psychology consultation Delirium protocol: - Avoid benzodiazepines, opiates and anticholinergics if possible as can contribute/cause delirium. - Frequent reorientation, use of clocks/calendars, verbal reminders of current location and situation. - A calm, comfortable environment that includes familiar objects from home. - Involvement of family members. - Uninterrupted periods of sleep at night, with low levels of noise and minimal light. - Open blinds during the day to promote daytime alertness and a regular sleep- wake cycle. Seen and discussed with: Dr. Quintana Please feel free to contact us with any additional questions or concerns by paging the consult team between 8am and 5pm on weekdays and between 8am and 3pm on weekends at [phone]. Otherwise, page the global consumer sector vice president clinical practice consultant. Subjective: Beata Kaiser is seen for routine consult follow up. Struggling with depression and adjustment disorder due to her medical health issues. Today, she is reportedly improving with respect to anxiety and depression. States, when she came initially she was having panic attacks, took valium frequently. Now, in last couple of days she didn't take any valium. Psychology assessment was reportedly helpful. Denies SI or HI. Denies hopelessness or guilt. Denies hallucinations. Fully alert and oriented. Constitutional: positive for fatigue, malaise and anorexia Musculoskeletal:positive for myalgias and bone pain Behavioral/Psych: positive for anxiety and depression Objective: Vital Signs: Current Vital Signs: 24 Hour Range BP: 132/75 (12/28 1818) Temp: 37.8 C (100 F) (12/28 1818) Pulse: 108 (12/28 1818) Respirations: 18 PER MINUTE (12/28 1818) SpO2: 96 % (12/28 1818) O2 Delivery: None (Room Air) (12/28 1818) BP: (100-132)/(61-80) Temp: [36.4 C (97.6 F)-37.8 C (100 F)] Pulse: [59-109] Respirations: [18 PER MINUTE] SpO2: [93 %-98 %] O2 Delivery: None (Room Air) Intensity Pain Scale 0-10 (Pain 1): (not recorded) Scheduled Medications: acetaminophen (TYLENOL) tablet 1,000 mg 1,000 mg Oral Q6H* buPROPion (WELLBUTRIN) tablet 100 mg 100 mg Oral TID busPIRone (BUSPAR) tablet 15 mg 15 mg Oral BID gabapentin (NEURONTIN) capsule 600 mg 600 mg Oral Q6H insulin aspart U-100 (NOVOLOG FLEXPEN) injection PEN 0-14 Units 0-14 Units Subcutaneous 5 X Day insulin aspart U-100 (NOVOLOG FLEXPEN) injection PEN 6 Units 6 Units Subcutaneous TID w/ meals insulin glargine (LANTUS SOLOSTAR, BASAGLAR) injection PEN 14 Units 14 Units Subcutaneous QHS lactobacillus rhamnosus GG (CULTURELLE) 15 billion cell capsule 1 capsule 1 capsule Oral BID w/meals levothyroxine (SYNTHROID) tablet 175 mcg 175 mcg Oral QDAY before breakfast pantoprazole DR (PROTONIX) tablet 40 mg 40 mg Oral QDAY(21) piperacillin/tazobactam (ZOSYN) 4.5 g/100 mL iso-osmotic IVPB 4.5 g Intravenous Q6H* rivaroxaban (XARELTO) tablet 20 mg 20 mg Oral QDAY w/breakfast vitamin A & D topical ointment Topical BID vitamins, multi w/minerals tablet 1 tablet 1 tablet Oral QDAY PRN Medications: alum/mag hydroxide/simeth Q6H PRN 30 mL at 12/27/17 1431, calcium carbonate Q4H PRN 1,000 mg at 12/25/17 1349, diazePAM Q6H PRN 5 mg at 12/25/17 0329, diphenhydrAMINE Q6H PRN OR [DISCONTINUED] diphenhydrAMINE Q6H PRN 25 mg at 12/19/17 2139, fentaNYL citrate PF Q1H PRN 50 mcg at 12/20/17 1012, ondansetron (ZOFRAN) IV Q6H PRN, oxyCODONE Q3H PRN 10 mg at 12/28/17 1701, pancrelipase 20, 000 Units/ sodium bicarbonate 650 mg(#) PRN (Sharepoint Application 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 [employer]) Mental Status Exam: General/Constitutional: cooperative, interactive, dressed appropriately, and appropriate eye contact Speech: regular rate, rhythm with oscillation Thought Process. Logical goal directed Thought Content: Denied SI, HI, AH, VH Perception: No delusions or illusions reported Associations: Intact Insight/Judgement: fair/fair Orientation: oriented X 4 Recent and remote memory: intact Attention span and concentration: fair Language: appropriate Fund of knowledge and vocabulary: average Mood: better Affect: congruent Focused Physical Exam: Neurologic: non focal Musculoskeletal: no EPS or dystonia Adair Colin MD Associated attestation - Hugh Quintana MD - 12/29/2017 9:01 AM CDT Formatting of this note may be different from the original. ATTESTATION I personally performed the banuelos portions of the E/M visit, discussed the case with the resident and concur with resident documentation of history, physical exam, assessment, and treatment plan unless otherwise noted. I personally participated in development of the plan of care. Please feel free to contact us with any additional questions or concerns by paging the consult team between 8am and 5pm on weekdays and between 8am and 3pm on weekends [phone]. Otherwise, page the global consumer sector vice president clinical practice consultant. Staff name: Hugh Quintana MD Date: 12/29/2017 * Indy Isabel MD - 12/28/2017 4:55 PM CDT Formatting of this note may be different from the original. Infectious Diseases Progress Note Today's Date: 12/28/2017 Admission Date: 12/13/2017 Reason for this consultation: Consult Type: Co-Management w/Signed Orders Reason for consult S/p hemipelvectomy 12/14 for chondrosarcoma, inreasing leukocytosis w/out clear source Assessment: # Persistent Leukocytosis # GBS bacteremia w sepsis - Fever and leukocytosis began 12/20/17 - 12/21 L lower lobe infiltrate - read as atelectasis - 12/20 C. diff negative - 12/23 Bcx 09/21 set group B streptococcus; source seems most likely intra-pelvic - CT pelvis 12/25: "Ill-defined fluid and air along the anterior margin of the surgical site away from the drain tip. However, no discrete drainable fluid collection is noted." # Candiduria - 12/21/17 UA: wbc 2-10, negative nitrite, 1+ luukocytes, Culture > 100,000 Aracely sp - Sensitivities not done, unsure if fluconazole susceptible; may repeat if WBC increases - Treating given indwelling melchor and inability to remove melchor d/t recent bladder repair # s/p hemipelvectomy for Chondrosarcoma - 11/25/17 [...] repair of urethral injury, Vaginal closure. - Surgery evaluating for possible diverting colostomy, stool saturating wound. Plan for OR 12/30. # DVT - 11/30/17 IVC filter for DVT within the external iliac vein # Obese # HTN # DM # Hypothyroidism # Depression # Generalized pain # abx allergy - allergic history to Cephalexin 'years ago' with skin rash and hot flash - tolerated Penicillin when she had dental caries Recommendations: 1. Continue Zosyn 2. For eval of elevated WBC: Repeat UA/urine culture and C diff PCR (ordered) 3. Monitor WBC- if further increase and persistent yeast in urine or evolving redness to wound- change diflucan to micafungin 4. Monitor wound closely for progressive cellulitis/wound breakdown 5. Monitor for atbx toxicity Complexity of medical decision making is high b/c of the multi-system nature of the infectious disease process and concerns about the complexity of the patient illness including the sensitivity of the organisms being treated, the potential for drug toxicity and interactions, concerns about immunologic function, and interplay of other issues. Interval History Afebrile but WBC is sl up to 17K today. She denies new localizing symptoms. Loose stools persist. Melchor remains in place. No cough or sob. Poor apppetite. Will start tube feeds to supplement. ROS otherwise neg Discussed w nursing- loose stools are intermittent Antimicrobial Start date End date Erythromycin 12/13 Neomycin 12/13 12/13 Polymyxin B 12/14 12/14 Gentamycin 12/14 12/15 Clindamycin 12/14 12/22 Pip/tazo 12/22 active Fluconazole 12/22 active Vancomycin 12/23 12/27 Estimated Creatinine Clearance: 84.3 mL/min (based on SCr of 0.89 mg/dL). Medications Scheduled Meds: acetaminophen (TYLENOL) tablet 1,000 mg 1,000 mg Oral Q6H* buPROPion (WELLBUTRIN) tablet 100 mg 100 mg Oral TID busPIRone (BUSPAR) tablet 15 mg 15 mg Oral BID gabapentin (NEURONTIN) capsule 600 mg 600 mg Oral Q6H insulin aspart U-100 (NOVOLOG FLEXPEN) injection PEN 0-14 Units 0-14 Units Subcutaneous 5 X Day insulin aspart U-100 (NOVOLOG FLEXPEN) injection PEN 6 Units 6 Units Subcutaneous TID w/ meals insulin glargine (LANTUS SOLOSTAR, BASAGLAR) injection PEN 14 Units 14 Units Subcutaneous QHS lactobacillus rhamnosus GG (CULTURELLE) 15 billion cell capsule 1 capsule 1 capsule Oral BID w/meals levothyroxine (SYNTHROID) tablet 175 mcg 175 mcg Oral QDAY before breakfast pantoprazole DR (PROTONIX) tablet 40 mg 40 mg Oral QDAY(21) piperacillin/tazobactam (ZOSYN) 4.5 g/100 mL iso-osmotic IVPB 4.5 g Intravenous Q6H* rivaroxaban (XARELTO) tablet 20 mg 20 mg Oral QDAY w/breakfast vitamin A & D topical ointment Topical BID vitamins, multi w/minerals tablet 1 tablet 1 tablet Oral QDAY Continuous Infusions: PRN and Respiratory Meds:alum/mag hydroxide/simeth Q6H PRN, calcium carbonate Q4H PRN, diazePAM Q6H PRN, diphenhydrAMINE Q6H PRN OR [DISCONTINUED] diphenhydrAMINE Q6H PRN, fentaNYL citrate PF Q1H PRN, ondansetron (ZOFRAN) IV Q6H PRN, oxyCODONE Q3H PRN, pancrelipase 20,000 Units/ sodium bicarbonate 650 mg (#) PRN (Sharepoint Application 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 [employer]) Physical Examination Vital Signs: Last Vital Signs: 24 Hour Range BP: 131/80 (12/28 1436) Temp: 36.9 C (98.5 F) (12/28 1436) Pulse: 59 (12/28 1436) Respirations: 18 PER MINUTE (12/28 1436) SpO2: 98 % (12/28 1436) O2 Delivery: None (Room Air) (12/28 1436) BP: (100-131)/(61-80) Temp: [36.4 C (97.6 F)-37 C (98.6 F)] Pulse: [59-109] Respirations: [18 PER MINUTE] SpO2: [93 %-98 %] O2 Delivery: None (Room Air) General appearance: obese, alert, oriented, NAD HENT: mucus membranes moist, no oral lesions/thrush Eyes: EOMI, normal conj Lungs: no wheezing, rhonchi, rales appreciated Heart: Regular rhythm, reg rate, with no murmur, rub, gallop Abdomen: obese, normal garcia sounds, soft, non-tender, non distended Ext: s/p left hemipelvectomy; incision w dressing in place. There are areas of necrosis- along pannus, and in vulvar area. The area in pannus is sl more red today. Less drainage today Skin: no rash Psych: flat affect Lines: Carlos Manuel torres drain L abdomen - serosanguinous output Indwelling melchor catheter Lab Review Hematology Recent Labs 12/26/17 0401 12/27/17 0431 12/28/17 0400 WBC 11.3* 16.4* 17.7* HGB 7.9* 8.1* 8.2* HCT 23.5* 23.4* 23.8* PLTCT 345 359 426* Chemistry Recent Labs 12/26/17 0401 12/27/17 0431 12/28/17 0400 NA 133* 133* 131* K 3.5 3.8 4.2 CL 98 100 97* CO2 27 27 27 BUN 4* 7 12 CR 0.47 0.83 0.89 GFR >60 >60 >60 GLU 247* 183* 199* CA 7.8* 8.0* 8.3* PO4 2.1 -- -- Microbiology, Radiology and other Diagnostics Review Microbiology data reviewed. Indy Isabel MD Pager [phone] Infectious Diseases Fellow * Lynn Barrera - 12/28/2017 3:14 PM CDT PHYSICAL THERAPY MOBILITY NOTE Mobility Progressive Mobility Level: Active bed level mobility Level of Assistance: Assist X1 Assistive Device: None Time Tolerated: 11-30 minutes Activity Limited By: Fatigue;Weakness Patient participated in bed-level exercise program today with the assistance of the P.T. mobility aide as part of the ongoing physical therapy plan of care. Patient repositioned on her side following the completion of this session. 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 GRADER) Pain: Patient complains of pain Pain Location: Left;Hip Pain Interventions: Patient agrees to participate in therapy L LE Precautions: LLE Non-Weight Bearing Comments: Lay on right side as much as possible for edema management per Ortho note 12/16; Don't lie flat for extended periods of time Ambulation Assist: Independent Mobility in Community without Device Patient Owned Equipment: Crutches Home Situation: Lives with Family Type of Home: House Entry Stairs: 1-2 Stairs In-Home Stairs: No Stairs BED MOBILITY/TRANSFERS: Bed Mobility/Transfers Bed Mobility: Supine to Sit: Moderate Assist of 1st person; Minimal Assist of 2nd person;Head of Bed Elevated;Use of Rail;Assist with Trunk Bed Mobility: Sit to Supine: Minimal Assist;HOB Elevated;Use of Rail;Assist with R LE Transfer Type: Sit to/from Stand Transfer: Assistance Level: To/From;Bed;Moderate Assist;x2 People Transfer: Assistive Device: Roller Walker Transfers: Type Of Assistance: Knees(s) Blocked;Verbal Cues;Elevated Bed;For Strength Deficit;For Balance End Of Activity Status: In Bed BALANCE: Balance Sitting Balance: Static Sitting Balance Standing Balance: Static Standing Balance;Moderate Assist;x2 People Comments: Pt was able to stand with moderate assistance x2 with R knee blocked and UE support from staff and walker. With verbal cues pt was able to achieve terminal knee extension on R knee on her own when standing with no signs of buckling or loss of balance. ACTIVITY/EXERCISE: Activity / Exercise Sit Edge Of Bed: 5 minutes Sit Edge Of Bed Assist: Stand By Assist Stand At Bedside : (1 minute and 6 seconds) Stand At Bedside Assist: Moderate Assist;x2 People Activity Limited By: Patient Choice Comments: Pt required moderate assist to scoot L LE to the edge of the bed using draw sheet. EDUCATION: Education Persons Educated: Patient Patient Barriers To Learning: Pain;Anxiety Teaching Methods: Verbal Instruction Patient Response: Verbalized Understanding Topics: Mobility Progression ASSESSMENT/PROGRESS: Assessment/Progress Impaired Mobility Due To: Pain;Post Surgical Precautions;Post Surgical Changes; Decreased Activity Tolerance Assessment/Progress: Should Improve w/ Continued PT AM-PAC 6 Clicks Basic Mobility Inpatient Turning from your back to your side while in a flat bed without using bed rails : Total Moving from lying on your back to sitting on the side of a flatbed without using bedrails : Total Moving to and from a bed to a chair (including a wheelchair): Total Standing up from a chair using your arms (e.g. wheelchair, or bedside chair): Total To walk in hospital room: Total Climbing 3-5 steps with a railing: Total Raw Score: 6 Standardized (T-scale) Score: 16.59 Basic Mobility CMS 0-100%: 100 CMS G Code Modifier for Basic Mobility: CN GOALS: Goals Goal Formulation: With Patient Time For Goal Achievement: 7 days Pt Will Go Supine To/From Sit: w/ Moderate Assist Pt Will Transfer Bed/Chair: w/ Moderate Assist Pt Will Transfer Sit to Stand: w/ Moderate Assist PLAN: Plan Treatment Interventions: Mobility Training;Strengthening Plan Frequency: 5-7 Days per Week Comments: Progress standing tolerance, may want to initiate slide board transfers to determine safe transfer technique. RECOMMENDATIONS: PT Discharge Recommendations PT Discharge Recommendations: Inpatient Setting Recommend ongoing assistance for: In and out of house;Transfers;Bed mobility; Ambulation;Stairs;Toileting Therapist: Chari Moon Date: 12/28/2017 Cassandra Ordonez - 12/28/2017 4:46 PM CDT I was present and involved in directing the care of the patient throughout the physical therapy session. * Lexus Shirley, OT - 12/28/2017 10:34 AM CDT OCCUPATIONAL THERAPY NOTE Upon scheduled OT visit, patient politely deferring due to being on a personal phone call but requested OT to come back in a few minutes. Patient instructed to use call light when she was ready. Patient used call light 20 minutes later, requesting assist for perineal hygiene after bowel movement. Patient able to roll to R with contact guard assist, rolling to L patient required minimal assist. Total assist was provided for hygiene. Patient engaged in conversation regarding therapy schedule in future. Patient expressed concerns with timing therapy around meals and bowel movements. Patient created and agreeable to the following schedule: OT at 10:30, PT at 14: 00, mobility aide for exercises at 15:30. OT will continue to follow and provide intervention as indicated. Therapist: SACHA Nath/Tapan [id number] Date: 12/28/2017 * Nani Mcelroy RN - 12/28/2017 10:02 AM CDT Wound Ostomy Note NAME:Beata Kaiser :1965 AGE: 52 y.o. ADMISSION DATE: 12/13/2017 DAYS ADMITTED: LOS: 15 days Reason for Consult/Visit: wound not pressure Assessment/Plan: Principal Problem: Pelvic mass Active Problems: Pelvic mass in female Metabolic acidosis Acute blood loss as cause of postoperative anemia Depression Anxiety DM (diabetes mellitus) (HCC) Hypothyroidism Hemorrhagic shock (HCC) Chronic pain Follow up with pt for wounds and possible ostomy placement ( see other note for ostomy ) Left labia wound base remains pink and yellow with decreased edema. Continue a& D oint and open to air Left lower abdomin with gallardo scabbing- cont A&D to loosen No dressing observed to abdominal skin fold. Would suggest using a dressing to keep skin from touching and to control moisture. Pt is unable to participate in proper turning schedule d/t surgical sites. RECOMMEND: Envision mattress Will continue to follow. Nani Mcelroy RN, BSN Wound Ostomy Nursing Consult Service Office: [phone] Pager: [phone] After hours Wound/Ostomy team pager : [phone] * Dalia Bullock MD - 12/28/2017 9:38 AM CDT Formatting of this note may be different from the original. General Progress Note Name: Beata Kaiser Today's Date: 12/28/2017 Admission Date: 12/13/2017 LOS: 15 days Assessment/Plan: Principal Problem: Pelvic mass Active Problems: Pelvic mass in female Metabolic acidosis Acute blood loss as cause of postoperative anemia Depression Anxiety DM (diabetes mellitus) (HCC) Hypothyroidism Hemorrhagic shock (HCC) Chronic pain Beata Kaiser is a 52 y.o. female Hx of hypothyroidism and non-insulin dependent diabetes mellitus who presented to [facility] on 12/13/17 for scheduled left hemipelvectomy for chondrosarcoma. Pt underwent open biopsy of left pelvis previously on 11/29. Pt underwent scheduled hemipelvectomy on 12/14/17. Medicine following for hyponatremia. Hyponatremia, improving. - Hypotonic. Random cortisol and TSH WNL. Severe Malnutrition starting enteral feeds 12/28. GERD on protonix GBS bacteremia on zosyn. vanc dc'd 12/27. Aracely infection in urine on diflucan Non-insulin dependent diabetes mellitus insulin initiated in hospital. 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 Plan for diverting colostomy this week. left iliac vein thrombosis. An IVC filter was placed recently Plan : Hyponatremia: improved with fluid restriction. Continue 2L fluid restriction for now. Will consider liberalization once >135. Repeat serum/urine osmolality and urine Na (ordered). Hyperglycemia: continue Lantus 14U QHS and increase prandial to 6U TID AC ( ordered) with [facility]. Not receiving tube feeds yet but anticipate increased requirements once initiated. Appreciate diabetes nurse educator assistance with new insulin start. Hold off on A1C given multiple transfusions. Nutrition: dietitian following. primary team to start tube feeds. agree with plan. (primary team ordered). Consider holding metformin as this may be contributing to early satiety. Staffed with Dr. Marcelino. Dalia Bullock MD PGY-3 Internal Medicine Pager [phone] Subjective Beata Kaiser is a 52 y.o. female. no events overnight. reports improvement in diarrhea. poor appetite still. tube feeds to start tonight. no fever, chills. pain reasonably controlled. ROS no fever, chills +poor appetite no abdominal pain, nausea, vomiting no chest pain Medications Scheduled Meds: acetaminophen (TYLENOL) tablet 1,000 mg 1,000 mg Oral Q6H* buPROPion (WELLBUTRIN) tablet 100 mg 100 mg Oral TID busPIRone (BUSPAR) tablet 15 mg 15 mg Oral BID fluconazole (DIFLUCAN) tablet 200 mg 200 mg Oral QDAY gabapentin (NEURONTIN) capsule 600 mg 600 mg Oral Q6H insulin aspart U-100 (NOVOLOG FLEXPEN) injection PEN 0-14 Units 0-14 Units Subcutaneous 5 X Day insulin aspart U-100 (NOVOLOG FLEXPEN) injection PEN 6 Units 6 Units Subcutaneous TID w/ meals insulin glargine (LANTUS SOLOSTAR, BASAGLAR) injection PEN 14 Units 14 Units Subcutaneous QHS lactobacillus rhamnosus GG (CULTURELLE) 15 billion cell capsule 1 capsule 1 capsule Oral BID w/meals levothyroxine (SYNTHROID) tablet 175 mcg 175 mcg Oral QDAY before breakfast metFORMIN (GLUCOPHAGE) tablet 500 mg 500 mg Oral BID w/meals pantoprazole DR (PROTONIX) tablet 40 mg 40 mg Oral QDAY(21) piperacillin/tazobactam (ZOSYN) 4.5 g/100 mL iso-osmotic IVPB 4.5 g Intravenous Q6H* rivaroxaban (XARELTO) tablet 20 mg 20 mg Oral QDAY w/breakfast vitamin A & D topical ointment Topical BID vitamins, multi w/minerals tablet 1 tablet 1 tablet Oral QDAY Continuous Infusions: PRN and Respiratory Meds:alum/mag hydroxide/simeth Q6H PRN, calcium carbonate Q4H PRN, diazePAM Q6H PRN, diphenhydrAMINE Q6H PRN OR [DISCONTINUED] diphenhydrAMINE Q6H PRN, fentaNYL citrate PF Q1H PRN, hyoscyamine Q4H PRN, ondansetron (ZOFRAN) IV Q6H PRN, oxyCODONE Q3H PRN, pancrelipase 20,000 Units/ sodium bicarbonate 650 mg(#) PRN (Sharepoint Application 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 Rx) Objective: Vital Signs: Last Filed Vital Signs: 24 Hour Range BP: 113/63 (12/28 548) Temp: 36.4 C (97.6 F) (12/28 548) Pulse: 100 (12/28 548) Respirations: 18 PER MINUTE (12/28 548) SpO2: 97 % (12/28 548) O2 Delivery: None (Room Air) (12/28 548) BP: (102-126)/(63-70) Temp: [36.4 C (97.6 F)-37 C (98.6 F)] Pulse: [82-109] Respirations: [16 PER MINUTE-18 PER MINUTE] SpO2: [95 %-98 %] O2 Delivery: None (Room Air) Intensity Pain Scale 0-10 (Pain 1): 4 (12/28/17 0300) Vitals: 12/17/17 1600 12/18/17 0600 12/27/17 0654 Weight: 94.6 kg (208 lb 8.9 oz) 92.5 kg (203 lb 14.8 oz) 98.5 kg (217 lb 2.5 oz ) Intake/Output Summary: (Last 24 hours) Intake/Output Summary (Last 24 hours) at 12/28/17 0938 Last data filed at 12/28/17 0800 Gross per 24 hour Intake 1700 ml Output 3450 ml Net -1750 ml Stool Occurrence: 1 Physical Exam Gen alert oriented, cooperative , Head: Normocephalic, without obvious abnormality, atraumatic Eyes: conjunctivae/corneas clear Throat: Lips, mucosa, and tongue normal. Teeth and gums normal Neck: supple, no JVD Back: symmetric, no curvature. ROM normal. No CVA tenderness. Lungs: clear to auscultation bilaterally, no wheezes Heart: normal rate, regular rhythm Abdomen: soft, tender. Bowel sounds normal, non-distended flap in left lower abdomen melchor in place Extremities: LLE hemipelvectomy, dressings c/d/i drain in place , flap in left lower abdomen , edema plus 3 at surgery site , plus 1 RLE Lab Review 24-hour labs: Results for orders placed or performed during the hospital encounter of (from the past 24 hour(s)) POC GLUCOSE Collection Time: 12/27/17 11:52 AM Result Value Ref Range Glucose, POC 143 (H) 70 - 100 MG/DL POC GLUCOSE Collection Time: 12/27/17 5:00 PM Result Value Ref Range Glucose, POC 325 (H) 70 - 100 MG/DL POC GLUCOSE Collection Time: 12/27/17 9:28 PM Result Value Ref Range Glucose, POC 234 (H) 70 - 100 MG/DL POC GLUCOSE Collection Time: 12/28/17 3:14 AM Result Value Ref Range Glucose, POC 167 (H) 70 - 100 MG/DL POC GLUCOSE Collection Time: 12/28/17 3:27 AM Result Value Ref Range Glucose, POC 168 (H) 70 - 100 MG/DL CBC AND DIFF Collection Time: 12/28/17 4:00 AM Result Value Ref Range White Blood Cells 17.7 (H) 4.5 - 11.0 K/UL RBC 2.68 (L) 4.0 - 5.0 M/UL Hemoglobin 8.2 (L) 12.0 - 15.0 GM/DL Hematocrit 23.8 (L) 36 - 45 % MCV 89.0 80 - 100 FL MCH 30.6 26 - 34 PG MCHC 34.4 32.0 - 36.0 G/DL RDW 15.5 (H) 11 - 15 % Platelet Count 426 (H) 150 - 400 K/UL MPV 6.2 (L) 7 - 11 FL Neutrophils 78 (H) 41 - 77 % Lymphocytes 13 (L) 24 - 44 % Monocytes 6 4 - 12 % Eosinophils 3 0 - 5 % Basophils 0 0 - 2 % Absolute Neutrophil Count 13.80 (H) 1.8 - 7.0 K/UL Absolute Lymph Count 2.20 1.0 - 4.8 K/UL Absolute Monocyte Count 1.10 (H) 0 - 0.80 K/UL Absolute Eosinophil Count 0.60 (H) 0 - 0.45 K/UL Absolute Basophil Count 0.00 0 - 0.20 K/UL BASIC METABOLIC PANEL Collection Time: 12/28/17 4:00 AM Result Value Ref Range Sodium 131 (L) 137 - 147 MMOL/L Potassium 4.2 3.5 - 5.1 MMOL/L Chloride 97 (L) 98 - 110 MMOL/L CO2 27 21 - 30 MMOL/L Anion Gap 7 3 - 12 Glucose 199 (H) 70 - 100 MG/DL Blood Urea Nitrogen 12 7 - 25 MG/DL Creatinine 0.89 0.4 - 1.00 MG/DL Calcium 8.3 (L) 8.5 - 10.6 MG/DL eGFR Non >60 >60 mL/min eGFR >60 >60 mL/min POC GLUCOSE Collection Time: 12/28/17 7:54 AM Result Value Ref Range Glucose, POC 187 (H) 70 - 100 MG/DL Point of Care Testing (Last 24 hours) Glucose: (!) 199 (12/28/17 0400) POC Glucose (Download): (!) 187 (12/28/17 0512) Radiology and other Diagnostics Review: Pertinent radiology reviewed. Dalia Bulolck MD Pager Associated attestation - Julia Marcelino MD - 12/28/2017 3:43 PM CDT Formatting of this note may be different from the original. ATTESTATION I personally performed the banuelos portions of the E/M visit, discussed case with resident and concur with resident documentation of history, physical exam, assessment, and treatment plan unless otherwise noted. Holding metformin, can restart on discharge. Staff name: Julia Marcelino MD Date: 12/28/2017 * Adrienne Zarate MD - 12/28/2017 9:30 AM CDT Formatting of this note may be different from the original. Subjective: No acute events overnight. Pain well controlled. Appetite improving. Tolerated corpak placement. Objective: Blood pressure 113/63, pulse 100, temperature 36.4 C (97.6 F), height 162.6 cm (64"), weight 98.5 kg (217 lb 2.5 oz), SpO2 97 %. General: AAOx3, NAD Cardiac: tachycardic Respirations: Unlabored Extremities: LLE hemipelvectomy, dressings with moderate serous drainage posteriorly, eschar about the incision with no significant incisional erythema Post-op Drains: (24 hours) MANNY: 1230 ml, serous No results for input(s): PTT, INR in the last 72 hours. 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 zosyn) -Melchor catheter x4 wks minimum -Maintain dressings, ortho to manage - reinforce as needed -Maintain MANNY drain to bulb suction -Orals for pain control, gabapentin- Nursing pain management consult -Resume xarelto for DVT -Please do not leave flat for extended periods of time, would like patient to lay onto her right side as much as possible -Acute blood loss anemia - Hgb 8.2 -Rehab consult- appreciate recs -Psych, HUMAN RESOURCES RECEPTIONIST psych and psychology consults for coping, depression - appreciate assistance -IM consult for hyponatremia- appreciate recs -ID consult for persistent leukocytosis and fevers - kendrick Garcia recs -Nutrition following for optimization; calorie count performed yesterday; request Nutrition evaluation for possible feeding tube placement -CT pelvis ordered to evaluate fluid collection - no discrete fluid collection -General Surgery consult for possible colostomy- plan for colostomy 12/30 Dispo: Continue inpatient care Adrienne Zarate MD [id number] * Anita Hines RN - 12/28/2017 12:16 AM CDT 0000: Paged Radiology to verify placement of Corpak. Per Radiology, Corpak is still in stomach and not in a good place to start feedings. 0015: Notified physician of Corpak placement. Would like Corpak to be placed again by SICU once patient is awake. 0430: Resource nurse placed Corpak. KUB ordered. 0630: Paged Radiology to verify placement. * Annette Ling RN - 12/27/2017 7:04 PM CDT RN placed CorePac 10Fr tube in right nare with CoreTrak monitor guidance. Tube taped at 90cm. Patient tolerated the procedure very well. Awaiting xray placement confirmation. * Hawk Jennings MD - 12/27/2017 5:14 PM CDT Formatting of this note may be different from the original. Physical Medicine & Rehabilitation Progress Note Patient name: Beata Kaiser Patient age: 52 y.o. Today's Date: 12/27/2017 Admission Date: 12/13/2017 LOS: 14 days Assessment/Plan: Principal Problem: Pelvic mass Active Problems: Pelvic mass in female Metabolic acidosis Acute blood loss as cause of postoperative anemia Depression Anxiety DM (diabetes mellitus) (HCC) Hypothyroidism Hemorrhagic shock (HCC) Chronic pain Beata Kaiser is a 52 y.o. female admitted to [facility] on 12/13/2017 with the following issues: S/p hemipelvectomy for left pelvic chondrosarcoma Impairments: amputation (lower extremity), pain and poor activity tolerance Activity Limitations: grooming, bathing, dressing - lower, toileting, bladder control, transfers, ambulation and stairs Participation Restrictions: unable to return home safely Post-acute care rehabilitation needs: Given pt's considerable impairments (including but not limited to impaired bed mobility, transfers and mobility) status-post jamil-pelvectomy, it is expected that the pt will continue to demonstrate the therapy goals in addition to the medical complexity necessary to recommend admission to an acute inpatient rehabilitation unit once medically stable for discharge. Given that the pt is awaiting further surgical intervention however, it is too early to make definitive recommendations. Our service will continue to follow her progress. Goals & Barriers Family / Patient Goals: return home with family assistance Mobility Goals: Overall goal is Moderate assistance Activities of Daily Living (ADLs) Goals: Overall goal is Moderate assistance Cognition / Communication Goals: Cognition grossly intact and Speech intact Barriers: Functioning at wheelchair level, Poor strength/endurance and Uncontrolled pain Facilitators: improving medical condition Rehabilitation Prognosis: Good Tolerance for three hours of therapy a day: Fair currently Prior to the inpatient rehabilitation admission complete the following: *Endurance The patient will need to be clearly able to or reasonably expected to be able to endure 3 hours of constructive therapy per day. This will need to be determined prior to considering admission to acute inpatient rehabilitation. *IV Pain The patient will need to be transitioned off all IV pain medications and have good pain control with oral analgesics prior to considering acute inpatient rehabilitation. 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 Pt will also benefit from de-sensitization techniques as instructed by PT and to be performed by self as able. Hospital Course: Beata Kaiser is a 52 yo F who presented to [facility] on 12/13/17 for scheduled left hemipelvectomy for [...] urethral injury. These were repaired by urology. NGT placed for post-op nutrition and has since been removed. Pt developed increasing leukocytosis and fevers post-op and infectious disease consulted for further work-up. Pt started on anti-bx for possible hospital acquired pneumonia. Fluconazole started for candiduria as per urology. Psych consulted for depression. Plans are pending for diverting colostomy to be performed on 12/30. Pain management service consulted for assistance with management due to ongoing pain issues since DIRECTOR PHARMACOLOGY removed. Pt has been working with PT/OT for therapy needs. IM consulted for hyponatremia. This is a follow up visit from initial consultation performed on 12/20/17 Hawk Jennings MD Subjective Beata Kaisre is a 52 y.o. female. Patient reports pain better controlled. Recognizes need for rehab once stable for discharge but does not know if she will be able to tolerate after scheduled colostomy for 12/30. Current Level Of Function: PT Gait: Bed Mobility/Transfers Bed Mobility: Rolling: Moderate Assist, Assist with Trunk Bed Mobility: Supine to Sit: Maximum Assist, x2 People Bed Mobility: Sit to Supine: Moderate Assist, x2 People Comments: Pt complained of dizziness when first sitting up, blood pressure was measured at 138/73. Transfer Type: Sit to/from Stand Transfer: Assistance Level: To/From, Bed, Maximal Assist, x2 People Transfer: Assistive Device: Roller Walker Transfers: Type Of Assistance: Elevated Bed, Knees(s) Blocked, For Balance, For Strength Deficit, Requires Extra Time End Of Activity Status: In Bed, Nursing Notified Comments: Patient achieves partial stand to allow for quick linen change, nursing present to assist with dressing change and hygiene. OT ADL's Where Assessed: Edge of Bed Eating Assist: Independent Eating Deficits: Beverage Management Grooming Assist: Stand By Assist Grooming Deficits: Setup, Teeth Care, Supervision/Safety (supervision for sitting balance, 1 UE support at all times) LE Dressing Assist: Total Assist LE Dressing Deficits: Don/Doff R Sock Toileting Assist: Total Assist Toileting Deficits: Perineal Hygiene (melchor, incontinent of BM) Functional Transfer Assist: Moderate Assist Functional Transfer Deficits: (supine<>sit) Comment: Pt supine upon OT arrival. Pt required assist for trunk to sit edge of bed. Pt sat edge of bed x10 minutes with assist varying from stand by assist to contact guard assist. Pt completed grooming, maintaining balance with 1 UE on bed or bedside table at all times. Pt completed theraband exercises seated EOB and supine. Pt able to complete BUE exercise with contact guard assist for sitting balance (no UE support on bed). Pt returned to supine with assist for RLE. Pt supine at OT departure with all needs within reach and bed alarm set ( turned to R with wedge). ERP IMPLEMENTATION CONSULTANT COGNITIVE EVALUATION SUMMARY PRAGMATICS: BEHAVIOR: AUDITORY COMPREHENSION: ORIENTATION: AUDITORY ATTENTION/WORKING MEMORY: AUDITORY MEMORY/SUSTAINED ATTENTION: NEW LEARNING: SEQUENCING/ORGANIZATION: PROBLEM SOLVING: REASONING: MATH/MONEY SKILLS: VISUAL PERCEPTUAL: SWALLOW EVALUATION SUMMARY Review of Systems - A 10 point review of systems was negative accept where reported in the HPI Medications Scheduled Meds: acetaminophen (TYLENOL) tablet 1,000 mg 1,000 mg Oral Q6H* buPROPion (WELLBUTRIN) tablet 100 mg 100 mg Oral TID busPIRone (BUSPAR) tablet 15 mg 15 mg Oral BID fluconazole (DIFLUCAN) tablet 200 mg 200 mg Oral QDAY gabapentin (NEURONTIN) capsule 600 mg 600 mg Oral Q6H insulin aspart U-100 (NOVOLOG FLEXPEN) injection PEN 0-14 Units 0-14 Units Subcutaneous 5 X Day insulin aspart U-100 (NOVOLOG FLEXPEN) injection PEN 4 Units 4 Units Subcutaneous TID w/ meals insulin glargine (LANTUS SOLOSTAR, BASAGLAR) injection PEN 14 Units 14 Units Subcutaneous QHS lactobacillus rhamnosus GG (CULTURELLE) 15 billion cell capsule 1 capsule 1 capsule Oral BID w/meals levothyroxine (SYNTHROID) tablet 175 mcg 175 mcg Oral QDAY before breakfast metFORMIN (GLUCOPHAGE) tablet 500 mg 500 mg Oral BID w/meals pantoprazole DR (PROTONIX) tablet 40 mg 40 mg Oral QDAY(21) piperacillin/tazobactam (ZOSYN) 4.5 g/100 mL iso-osmotic IVPB 4.5 g Intravenous Q6H* rivaroxaban (XARELTO) tablet 20 mg 20 mg Oral QDAY w/breakfast vitamin A & D topical ointment Topical BID vitamins, multi w/minerals tablet 1 tablet 1 tablet Oral QDAY Continuous Infusions: PRN and Respiratory Meds:alum/mag hydroxide/simeth Q6H PRN, calcium carbonate Q4H PRN, diazePAM Q6H PRN, diphenhydrAMINE Q6H PRN OR [DISCONTINUED] diphenhydrAMINE Q6H PRN, fentaNYL citrate PF Q1H PRN, hyoscyamine Q4H PRN, ondansetron (ZOFRAN) IV Q6H PRN, oxyCODONE Q3H PRN, pancrelipase 20,000 Units/ sodium bicarbonate 650 mg(#) PRN (Sharepoint Application 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 Rx) Objective Vital Signs: Last Filed Vital Signs: 24 Hour Range BP: 126/65 (12/27 1349) Temp: 36.7 C (98.1 F) (12/27 1349) Pulse: 109 (12/27 1349) Respirations: 16 PER MINUTE (12/27 1349) SpO2: 96 % (12/27 1349) O2 Delivery: None (Room Air) (12/27 1349) BP: (102-136)/(65-79) Temp: [36.7 C (98 F)-36.8 C (98.2 F)] Pulse: [82-109] Respirations: [16 PER MINUTE-20 PER MINUTE] SpO2: [93 %-100 %] O2 Delivery: None (Room Air) Intensity Pain Scale 0-10 (Pain 1): 5 (12/27/17 1432) Vitals: 12/17/17 1600 12/18/17 0600 12/27/17 0654 Weight: 94.6 kg (208 lb 8.9 oz) 92.5 kg (203 lb 14.8 oz) 98.5 kg (217 lb 2.5 oz ) Intake/Output Summary: (Last 24 hours) Intake/Output Summary (Last 24 hours) at 12/27/17 1714 Last data filed at 12/27/17 1620 Gross per 24 hour Intake 7180 ml Output 6077 ml Net 1103 ml Stool Occurrence: 1 Oral Diet Order: Six Small Meals Last BM Date: 12/26/17 Bowel Accident: 1 Physical Exam VS: BP 126/65 (BP Source: Arm, Right) | Pulse 109 | Temp 36.7 C (98.1 F) | Ht 162.6 cm (64") | Wt 98.5 kg (217 lb 2.5 oz) | SpO2 96% | BMI 37.27 kg/m Gen: Alert & Oriented X 3, No Acute Distress HEENT: NCAT, PERRL, EOMI, MMM Neck: Supple, symmetric Heart: Ext well perfused Lungs: Clear to auscultation bilaterally, no w/r/r Abdomen: Soft, non-tender, non-distended, +BS : +Melchor Skin: no visible rashes/lesions Ext: Left hip in dressings MS: Root Right Left Shoulder Abduction C5 5 5 Elbow Flexion C5 5 5 Elbow Extension C7 5 5 Wrist Extension C6 5 5 Finger Flexion C8 5 5 Finger Abduction T1 5 5 Hip Flexion L2 2 * Knee Extension L3 3 * Dorsiflexion L4 5 * Plantarflexion S1 5 * EHL Extension L5 5 * Neuro: Cranial Nerves Cranial Nerves 2-12 are grossly intact Upper Extremity Sensation Intact to light touch bilaterally Lower Extremity Sensation Impaired kimberly-incisonally Associated attestation - Arnaldo Delacruz MD - 12/28/2017 9:26 AM CDT Rehabilitation Medicine Attending Physician Attestation: I personally performed banuelos portions of the history and exam. I discussed the case with the resident and agree with the resident's documentation of history, physical assessment and treatment plan unless otherwise noted. Thank you for allowing us to participate in the care of this patient. Arnaldo Delacruz MD 12/28/2017 9:26 AM Attending physician * Vincent Stoner RN - 12/27/2017 4:41 PM CDT Patient's surgical dressing saturated with serosanguinous drainage and soiled with stool. ID physician wanted to see incision. Paged primary team. Per Dr. Zarate it is ok to take down surgical dressing and replace with gauze 4x4, ABD , and hypafix tape. Wound base has areas of eschar on the posterior aspect of her hip but is generally moist and pink, surrounding skin is red/pink and macerated with several areas of blisters near the incision. Re-dressed with dry gauze, ABD, and hypafix tape. * Dalia Blulock MD - 12/27/2017 3:31 PM CDT Formatting of this note may be different from the original. General Progress Note Name: Beata Kaiser Today's Date: 12/27/2017 Admission Date: 12/13/2017 LOS: 14 days Assessment/Plan: Principal Problem: Pelvic mass Active Problems: Pelvic mass in female Metabolic acidosis Acute blood loss as cause of postoperative anemia Depression Anxiety DM (diabetes mellitus) (HCC) Hypothyroidism Hemorrhagic shock (HCC) Beata Kaiser is a 52 y.o. female Hx of hypothyroidism and non-insulin dependent diabetes mellitus who presented to [facility] on 12/13/17 for scheduled left hemipelvectomy for chondrosarcoma. Pt underwent open biopsy of left pelvis previously on 11/29. Pt underwent scheduled hemipelvectomy on 12/14/17. Medicine following for hyponatremia. Hyponatremia, hypotonic. Improved with fluid restriction. Severe Malnutrition starting enteral feeds 12/27. GERD on protonix GBS bacteremia on zosyn. vanc dc'd 12/27. Aracely infection in urine on diflucan Non-insulin dependent diabetes mellitus insulin initiated in hospital. 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 Plan for diverting colostomy this week. left iliac vein thrombosis. An IVC filter was placed recently Plan : Hyponatremia: improved with fluid restriction. Continue 2L fluid restriction for now. Will consider liberalization once >135. Hyperglycemia: improving. Increase Lantus 12U to 14U (ordered) and continue prandial 4U TID AC with [facility]. Will adjust PRN. Anticipate increased requirements with tube feeds. Will discharge with insulin. Recommend diabetes education for new insulin start (ordered). Nutrition: dietitian following. primary team to start tube feeds tonight. agree with plan. Staffed with Dr. Marcelino. Dalia Bullock MD PGY-3 Internal Medicine Pager [phone] Subjective Beata Kaiser is a 52 y.o. female. Endorses poor appetite due to indigestion. Diarrhea is improving. No loose stool in 24 hours per patient. Denies fever, chills. Pain is reasonably controlled. Deniens abdominal pain or emesis, more so like "ate too much". Has melchor in place - denies bladder spasms. Denies confusion. ROS no fever, chills +indigestion no abdominal pain no chest pain Medications Scheduled Meds: acetaminophen (TYLENOL) tablet 1,000 mg 1,000 mg Oral Q6H* buPROPion (WELLBUTRIN) tablet 100 mg 100 mg Oral TID busPIRone (BUSPAR) tablet 15 mg 15 mg Oral BID fluconazole (DIFLUCAN) tablet 200 mg 200 mg Oral QDAY gabapentin (NEURONTIN) capsule 600 mg 600 mg Oral Q6H insulin aspart U-100 (NOVOLOG FLEXPEN) injection PEN 0-14 Units 0-14 Units Subcutaneous 5 X Day insulin aspart U-100 (NOVOLOG FLEXPEN) injection PEN 4 Units 4 Units Subcutaneous TID w/ meals insulin glargine (LANTUS SOLOSTAR, BASAGLAR) injection PEN 12 Units 12 Units Subcutaneous QHS lactobacillus rhamnosus GG (CULTURELLE) 15 billion cell capsule 1 capsule 1 capsule Oral BID w/meals levothyroxine (SYNTHROID) tablet 175 mcg 175 mcg Oral QDAY before breakfast metFORMIN (GLUCOPHAGE) tablet 500 mg 500 mg Oral BID w/meals pantoprazole DR (PROTONIX) tablet 40 mg 40 mg Oral QDAY(21) piperacillin/tazobactam (ZOSYN) 4.5 g/100 mL iso-osmotic IVPB 4.5 g Intravenous Q6H* rivaroxaban (XARELTO) tablet 20 mg 20 mg Oral QDAY w/breakfast vitamin A & D topical ointment Topical BID vitamins, multi w/minerals tablet 1 tablet 1 tablet Oral QDAY Continuous Infusions: PRN and Respiratory Meds:alum/mag hydroxide/simeth Q6H PRN, calcium carbonate Q4H PRN, diazePAM Q6H PRN, diphenhydrAMINE Q6H PRN OR [DISCONTINUED] diphenhydrAMINE Q6H PRN, fentaNYL citrate PF Q1H PRN, hyoscyamine Q4H PRN, ondansetron (ZOFRAN) IV Q6H PRN, oxyCODONE Q3H PRN Objective: Vital Signs: Last Filed Vital Signs: 24 Hour Range BP: 126/65 (12/27 1349) Temp: 36.7 C (98.1 F) (12/27 1349) Pulse: 109 (12/27 1349) Respirations: 16 PER MINUTE (12/27 1349) SpO2: 96 % (12/27 1349) O2 Delivery: None (Room Air) (12/27 1349) BP: (102-136)/(65-79) Temp: [36.7 C (98 F)-36.8 C (98.2 F)] Pulse: [82-109] Respirations: [16 PER MINUTE-20 PER MINUTE] SpO2: [93 %-100 %] O2 Delivery: None (Room Air) Intensity Pain Scale 0-10 (Pain 1): 5 (12/27/17 1432) Vitals: 12/17/17 1600 12/18/17 0600 12/27/17 0654 Weight: 94.6 kg (208 lb 8.9 oz) 92.5 kg (203 lb 14.8 oz) 98.5 kg (217 lb 2.5 oz ) Intake/Output Summary: (Last 24 hours) Intake/Output Summary (Last 24 hours) at 12/27/17 1531 Last data filed at 12/27/17 1432 Gross per 24 hour Intake 7180 ml Output 5962 ml Net 1218 ml Stool Occurrence: 1 Physical Exam Gen alert oriented, cooperative , Head: Normocephalic, without obvious abnormality, atraumatic Eyes: conjunctivae/corneas clear. PERRL, EOM's intact, Throat: Lips, mucosa, and tongue normal. Teeth and gums normal Neck: supple, symmetrical, trachea midline, no adenopathy, no JVD, no bruits, Back: symmetric, no curvature. ROM normal. No CVA tenderness. Lungs: clear to auscultation bilaterally, no wheezes, rales, rhonchi Heart: regular rate and rhythm, S1, S2 normal, no murmur, click, rub or gallop Abdomen: soft, tender. Bowel sounds normal. No masses, no organomegaly, non- distended flap in left lower abdomen melchor in place Extremities: LLE hemipelvectomy, dressings c/d/i drain in place , flap in left lower abdomen , edema plus 3 at surgery site , plus 1 RLE Lab Review 24-hour labs: Results for orders placed or performed during the hospital encounter of (from the past 24 hour(s)) POC GLUCOSE Collection Time: 12/26/17 5:42 PM Result Value Ref Range Glucose, POC 215 (H) 70 - 100 MG/DL POC GLUCOSE Collection Time: 12/26/17 9:25 PM Result Value Ref Range Glucose, POC 304 (H) 70 - 100 MG/DL POC GLUCOSE Collection Time: 12/27/17 2:35 AM Result Value Ref Range Glucose, POC 176 (H) 70 - 100 MG/DL CBC AND DIFF Collection Time: 12/27/17 4:31 AM Result Value Ref Range White Blood Cells 16.4 (H) 4.5 - 11.0 K/UL RBC 2.67 (L) 4.0 - 5.0 M/UL Hemoglobin 8.1 (L) 12.0 - 15.0 GM/DL Hematocrit 23.4 (L) 36 - 45 % MCV 87.6 80 - 100 FL MCH 30.2 26 - 34 PG MCHC 34.5 32.0 - 36.0 G/DL RDW 15.0 11 - 15 % Platelet Count 359 150 - 400 K/UL MPV 6.9 (L) 7 - 11 FL Neutrophils 79 (H) 41 - 77 % Lymphocytes 10 (L) 24 - 44 % Monocytes 7 4 - 12 % Eosinophils 3 0 - 5 % Basophils 1 0 - 2 % Absolute Neutrophil Count 12.90 (H) 1.8 - 7.0 K/UL Absolute Lymph Count 1.60 1.0 - 4.8 K/UL Absolute Monocyte Count 1.20 (H) 0 - 0.80 K/UL Absolute Eosinophil Count 0.50 (H) 0 - 0.45 K/UL Absolute Basophil Count 0.10 0 - 0.20 K/UL BASIC METABOLIC PANEL Collection Time: 12/27/17 4:31 AM Result Value Ref Range Sodium 133 (L) 137 - 147 MMOL/L Potassium 3.8 3.5 - 5.1 MMOL/L Chloride 100 98 - 110 MMOL/L CO2 27 21 - 30 MMOL/L Anion Gap 6 3 - 12 Glucose 183 (H) 70 - 100 MG/DL Blood Urea Nitrogen 7 7 - 25 MG/DL Creatinine 0.83 0.4 - 1.00 MG/DL Calcium 8.0 (L) 8.5 - 10.6 MG/DL eGFR Non >60 >60 mL/min eGFR >60 >60 mL/min VANCOMYCIN TROUGH Collection Time: 12/27/17 5:33 AM Result Value Ref Range Vancomycin Trough 23.2 (H) 10.0 - 20.0 MCG/ML POC GLUCOSE Collection Time: 12/27/17 7:39 AM Result Value Ref Range Glucose, POC 193 (H) 70 - 100 MG/DL POC GLUCOSE Collection Time: 12/27/17 11:52 AM Result Value Ref Range Glucose, POC 143 (H) 70 - 100 MG/DL Point of Care Testing (Last 24 hours) Glucose: (!) 183 (12/27/17 0431) POC Glucose (Download): (!) 143 (12/27/17 1152) Radiology and other Diagnostics Review: Pertinent radiology reviewed. Dalia Bullock MD Pager Associated attestation - Julia Marcelino MD - 12/27/2017 10:17 PM CDT Formatting of this note may be different from the original. ATTESTATION I personally performed the banuelos portions of the E/M visit, discussed case with resident and concur with resident documentation of history, physical exam, assessment, and treatment plan unless otherwise noted. Pt reports increased fluid intake because of very dry mouth. Noted hyoscyamine on NOV. Pt has not received in last 3 days, but would recommend d/c to avoid worsening sx. 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) Pain: Patient complains of pain Pain Location: Left;Hip;Back Pain Interventions: Patient agrees to participate in therapy L LE Precautions: LLE Non-Weight Bearing Comments: Lay on right side as much as possible for edema management per Ortho note 12/16; Don't lie flat for extended periods of time Ambulation Assist: Independent Mobility in Community without Device Patient Owned Equipment: Crutches Home Situation: Lives with Family Type of Home: House Entry Stairs: 1-2 Stairs In-Home Stairs: No Stairs BED MOBILITY/TRANSFERS: Bed Mobility/Transfers Bed Mobility: Supine to Sit: Maximum Assist;x2 People; Assist with trunk Bed Mobility: Sit to Supine: Moderate Assist;x2 People; Assist with trunk; Assist with R LE Comments: Pt complained of dizziness when first sitting up, blood pressure was measured at 138/73. Transfer Type: Sit to/from Stand Transfer: Assistance Level: To/From;Bed;Maximal Assist;x2 People Transfer: Assistive Device: Roller Walker Transfers: Type Of Assistance: Elevated Bed;Knees(s) Blocked;For Balance;For Strength Deficit;Requires Extra Time End Of Activity Status: In Bed;Nursing Notified ACTIVITY/EXERCISE: Activity / Exercise Sit Edge Of Bed: 15 minutes Sit Edge Of Bed Assist: Stand By Assist Stand At Bedside : (15 seconds) Stand At Bedside Assist: Maximum Assist;x2 People Activity Limited By: Complaint of Pain EDUCATION: Education Persons Educated: Patient Patient Barriers To Learning: Pain;Anxiety Teaching Methods: Verbal Instruction Patient Response: Verbalized Understanding Topics: Mobility Progression ASSESSMENT/PROGRESS: Assessment/Progress Impaired Mobility Due To: Pain;Post Surgical Precautions;Post Surgical Changes; Decreased Activity Tolerance Assessment/Progress: Should Improve w/ Continued PT AM-PAC 6 Clicks Basic Mobility Inpatient Turning from your back to your side while in a flat bed without using bed rails : Total Moving from lying on your back to sitting on the side of a flatbed without using bedrails : Total Moving to and from a bed to a chair (including a wheelchair): Total Standing up from a chair using your arms (e.g. wheelchair, or bedside chair): Total To walk in hospital room: Total Climbing 3-5 steps with a railing: Total Raw Score: 6 Standardized (T-scale) Score: 16.59 Basic Mobility CMS 0-100%: 100 CMS G Code Modifier for Basic Mobility: CN GOALS: Goals Goal Formulation: With Patient Time For Goal Achievement: 7 days Pt Will Go Supine To/From Sit: w/ Moderate Assist Pt Will Transfer Bed/Chair: w/ Moderate Assist Pt Will Transfer Sit to Stand: w/ Moderate Assist PLAN: Plan Treatment Interventions: Mobility Training;Strengthening Plan Frequency: 5-7 Days per Week Comments: Progress sitting and standing tolerance RECOMMENDATIONS: PT Discharge Recommendations PT Discharge Recommendations: Inpatient Setting Recommend ongoing assistance for: In and out of house;Transfers;Ambulation;Bed mobility;Stairs;Toileting Therapist: Chari Moon Date: 12/27/2017 Associated attestation - Cassandra Villatoro - 12/27/2017 3:54 PM CDT I was present and involved in directing the care of the patient throughout the physical therapy session. * Lynn Barrera - 12/27/2017 2:51 PM CDT PHYSICAL THERAPY MOBILITY NOTE Attempt x1 (0380) Patient was assigned for activity with the mobility aide by the supervising therapist. Patient declined to participate despite encouragement. Patient reports that she is resting comfortably at this time and requests to continue resting. Patient is open to this radiologic technician returning for mobility session later on this date if time allows. Nursing notified. Will revisit this patient as able. Attempt x2 (8808): Patient was assigned for activity with the mobility aide by the supervising therapist. Patient is unavailable. Patient working with Physical Therapist at this time. Aide: Lynnalexus Barrera Date: 12/27/2017 * Emma See, RD - 12/27/2017 1:07 PM CDT CLINICAL NUTRITION Clinical Nutrition Follow-Up Summary Nutrition Assessment of Patient: Malnutrition Assessment: Adequately nourished prior to admission Current Oral Intake: Marginally Adequate Estimated Calorie Needs: 1660 (30 kcals/kg per DBW 55.3 kg due to large surgical wound) Estimated Protein Needs: 100 (1.8 g/kg desired wt of 55.3kg.) Oral Diet Order: Six Small Meals Oral Supplement: [place] Breakfast Essentials No Sugar Added, Protein Powder ( 2 pack tid) PO Intake (calories) Daily Average 12/25-12/27: 687 kilocalories (41% estimated needs from 12/25-12/27) PO Intake (protein) Daily Average 12/25-12/27: 28 grams (28% estimated needed.) 52 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 PMHx significant for DM. This RD following her calorie counts but unsure if protein shakes counted. Pt reports she is drinking at least 2 and sometimes 3 CIB shakes made by nursing/day. I discussed her intake yesterday, which was Rice Krispies with milk, cantalope, pineapple, and toast-she ate 100%. She did NOT have any lunch. Dinner was only an [place] muffin and grapes. She reports her appetite as decreased over the week-end because of indigestion which she says is now improved. Plan per pt and RN is for colostomy placement sometime this week, because of poorly healling surgical wound 2/2 stool soilage.. Pt is not opposed to to using nocturnal tube feeds if needed but wants to try to eat PO for a couple days first. This RD provided her with a protein shake made with sheila CIB, sheila milk, sheila ice cream, and 2 protein powders which provides 400 kcal and 27 grams protein. Recommendation: Continue 6 small meals, with encouragement of protein shakes with 2 added protein powders as snacks between meals. Nursing to please add protein shakes to documentation in doc flowsheet so they can be included in calorie count. Intervention / Plan: RD provided shake with added protein powders. Discussed need for increased intake. Will continue to monitor po intake and tolerance, and determine if nocturnal TFs needed. Nutrition Diagnosis: Increased nutrient needs, specify: (protein) Etiology: demand for healing. Signs & Symptoms: Pt s/p hemipelvectomy Inadequate oral intake Etiology: previous possilbe post-op ileus, now decreased appetite Signs & Symptoms: notes, pt report. Goals: Patient to consume >75% of meals/supplements Time Frame: Within 72 Hours Status: Not met;new goal established PO intake to meet >75% nutritional needs Time Frame: Within 72 Hours Status: Not met Emma See RD #[id number]. * Adrienne Zarate MD - 12/27/2017 12:43 PM CDT Formatting of this note may be different from the original. Subjective: No acute events overnight. Pain better controlled this morning when seen. States diarrhea is somewhat improved. Appetite was poor over the weekend. Objective: Blood pressure 102/65, pulse 82, temperature 36.7 C (98.1 F), height 162.6 cm (64"), weight 98.5 kg (217 lb 2.5 oz), SpO2 95 %. General: AAOx3, NAD Cardiac: RRR Respirations: Unlabored Extremities: LLE hemipelvectomy, dressings with mild serous drainage posteriorly , eschar about the incision with no significant incisional erythema Post-op Drains: (24 hours) MANNY: 1400 ml, serous No results for input(s): PTT, INR in the last 72 hours. CBC w/Diff Lab Results Component Value Date/Time WBC 16.4 (H) 12/27/2017 04:31 AM HGB 8.1 (L) 12/27/2017 04:31 AM HCT 23.4 (L) 12/27/2017 04:31 AM PLTCT 359 12/27/2017 04:31 AM Basic Metabolic Profile Lab Results Component Value Date/Time NA 133 (L) 12/27/2017 04:31 AM K 3.8 12/27/2017 04:31 AM CL 100 12/27/2017 04:31 AM CO2 27 12/27/2017 04:31 AM GAP 6 12/27/2017 04:31 AM Lab Results Component Value Date/Time BUN 7 12/27/2017 04:31 AM CR 0.83 12/27/2017 04:31 AM GLU 183 (H) 12/27/2017 04:31 AM A/P: 52 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 zosyn) -Melchor catheter x4 wks minimum -Maintain dressings, ortho to manage - reinforce as needed -Maintain MANNY drain to bulb suction -Orals for pain control, gabapentin- Nursing pain management consult -Resume xarelto for DVT -Please do not leave flat for extended periods of time, would like patient to lay onto her right side as much as possible -Acute blood loss anemia - Hgb 8.1 -Rehab consult- appreciate recs -Psych, HUMAN RESOURCES RECEPTIONIST psych and psychology consults for coping, depression - appreciate assistance -IM consult for hyponatremia- appreciate recs, improving -ID consult for persistent leukocytosis and fevers - Vanc/zosyn, appreciate recs -Nutrition following for optimization; calorie count performed yesterday; request Nutrition evaluation for possible feeding tube placement -CT pelvis ordered to evaluate fluid collection - no discrete fluid collection -General Surgery consult for possible colostomy- plan for colostomy 12/30 Dispo: Continue inpatient care Adrienne Zarate MD [id number] Associated attestation - Tamiko Luther MD - 12/30/2017 9:20 AM CDT I discussed the pt with Dr. Zarate. Dr. Devi was covering for me while I was out of town. I met with Ms. Kaiser and her family on December 28. Her wound is healing, with dry eschar noted along the distal aspect. There is no warmth or erythema. Her drain was removed without difficulty. She would like to pursue the colostomy, to keep her wound and dressing clean. We discussed that this could be reversed at some point in the future, depending on the competency of her anus. We also discussed the crucial importance of continuing to work on her nutrition. We also discussed the need for continued strengthening exercises. I demonstrated some of the exercises that she could do on her own with the Ther[employer]. I encouraged her to consider a rehab facility, with the ultimate goal of improving her activity and returning home. I also encouraged her to try to sit up more, get into a chair with assistance, and work on standing more with assistance. All of their questions were answered. * Indy Isabel MD - 12/27/2017 12:22 PM CDT Formatting of this note may be different from the original. Infectious Diseases Progress Note Today's Date: 12/27/2017 Admission Date: 12/13/2017 Reason for this consultation: Consult Type: Co-Management w/Signed Orders Reason for consult S/p hemipelvectomy 12/14 for chondrosarcoma, inreasing leukocytosis w/out clear source Assessment: # Sepsis, secondary to below - Fever resolved since 12/23 - Leukocytosis initially improved, worse today 12/27 up to # GBS bacteremia - Fever and leukocytosis began 12/20/17 - 4/3 L lower lobe infiltrate - read as atelectasis - 12/20 C. diff negative - 12/23 Bcx 09/21 set group B streptococcus; source seems most likely intra-pelvic - CT pelvis 12/25: "Ill-defined fluid and air along the anterior margin of the surgical site away from the drain tip. However, no discrete drainable fluid collection is noted." # Candiduria - 12/21/17 UA: wbc 2-10, negative nitrite, 1+ luukocytes, Culture > 100,000 Aracely sp - Sensitivities not done, unsure if fluconazole susceptible; may repeat if WBC increases - Treating given indwelling melchor and inability to remove melchor d/t recent bladder repair # s/p hemipelvectomy for Chondrosarcoma - 11/25/17 [...] repair of urethral injury, Vaginal closure. - Surgery evaluating for possible diverting colostomy, stool saturating wound. Plan for OR 12/30. # DVT - 11/30/17 IVC filter for DVT within the external iliac vein # Obese # HTN # DM # Hypothyroidism # Depression # Generalized pain # abx allergy - allergic history to Cephalexin 'years ago' with skin rash and hot flash - tolerated Penicillin when she had dental caries Recommendations: - Continue Zosyn - Stop vancomycin today (ordered) - Continue Fluconazole; initially planned a 7 day course. If leukocytosis worsened again tomorrow, we may repeat a UA/culture and ask for sensitivities on the Aracely in case of fluconazole resistance. - Follow up blood cultures 12/24 until finalized - Monitor temp and WBC count - Watch for antimicrobials toxicity and side effects. Will follow. Staffed with attending, Dr. Isabel. ATTESTATION I have seen and examined the patient today. I discussed the case with Dr. Pedro , the Infectious Diseases fellow. I concur with his findings documented in this note. I personally reviewed the history, laboratory and microbiology data as well as imaging studies today. The content of this consult was modified by me where necessary. Complexity of medical decision making is high b/c of the multi -system nature of the infectious disease process and concerns about the complexity of the patient illness including the identification and sensitivity of the organisms being treated, the potential for drug toxicity which requires monitoring of CBC, chemistry and potential drug levels between visits, potential drug interactions which could lead to life threatening outcome, concerns about immunologic function, and interplay of other issues. Discussed w nursing. Will have wound team see pt today. There is area of under pannus that is open/w scab, similar scab like area of most superior portion of wound. Not able to completely view wound- will return when wound team is present. Her sepsis seems improved. Not sure why WBC is elevated- may be transient. If worsens would consider incompletely tx urine or pelvic fluid (although CT does not show drainable collection at this point.). I reviewed the CT and would agree , thickening along pelvic side wall and subcutaneous tissue,no discrete fluid collection. Given no evidence of MRSA and high risk for SUSI- will dc and cont w Zosyn- this will cover streptococcus as well as likely mixed samantha (including anaerobes) given wound site. Indy Isabel MD Date: 12/27/2017 Pager: [phone] Interval History Afebrile since 12/23. Reports some decreased appetite and dizziness over the weekend. Dizziness better today, she reports after getting IV fluids. Denies nausea, vomiting. Some mild pain around the lower abdomen wounds/incision. Denies headache, skin rash. Wbc 16.9.4, up from 11.3 HGB 8.1 Creatinine 0.83 Vanc trough 23.2, pharmacy held a dose and adjusted; f/u repeat trough Surgery plans for diverting colostomy 12/30. Antimicrobial Start date End date Erythromycin 12/13 Neomycin 12/13 12/13 Polymyxin B 12/14 12/14 Gentamycin 12/14 12/15 Clindamycin 12/14 12/22 Pip/tazo 12/22 active Fluconazole 12/22 active Vancomycin 12/23 12/27 Estimated Creatinine Clearance: 90.4 mL/min (based on SCr of 0.83 mg/dL). Medications Scheduled Meds: acetaminophen (TYLENOL) tablet 1,000 mg 1,000 mg Oral Q6H* buPROPion (WELLBUTRIN) tablet 100 mg 100 mg Oral TID busPIRone (BUSPAR) tablet 15 mg 15 mg Oral BID fluconazole (DIFLUCAN) tablet 200 mg 200 mg Oral QDAY gabapentin (NEURONTIN) capsule 600 mg 600 mg Oral Q6H insulin aspart U-100 (NOVOLOG FLEXPEN) injection PEN 0-14 Units 0-14 Units Subcutaneous 5 X Day insulin aspart U-100 (NOVOLOG FLEXPEN) injection PEN 4 Units 4 Units Subcutaneous TID w/ meals insulin glargine (LANTUS SOLOSTAR, BASAGLAR) injection PEN 12 Units 12 Units Subcutaneous QHS lactobacillus rhamnosus GG (CULTURELLE) 15 billion cell capsule 1 capsule 1 capsule Oral BID w/meals levothyroxine (SYNTHROID) tablet 175 mcg 175 mcg Oral QDAY before breakfast metFORMIN (GLUCOPHAGE) tablet 500 mg 500 mg Oral BID w/meals pantoprazole DR (PROTONIX) tablet 40 mg 40 mg Oral QDAY(21) piperacillin/tazobactam (ZOSYN) 4.5 g/100 mL iso-osmotic IVPB 4.5 g Intravenous Q6H* rivaroxaban (XARELTO) tablet 20 mg 20 mg Oral QDAY w/breakfast [START ON 12/28/2017] vancomycin (VANCOCIN) 1,000 mg in D5W 200mL IVPB (premade ) 1 g Intravenous Q12H vancomycin, pharmacy to manage 1 each Service Per Pharmacy vitamin A & D topical ointment Topical BID vitamins, multi w/minerals tablet 1 tablet 1 tablet Oral QDAY Continuous Infusions: PRN and Respiratory Meds:alum/mag hydroxide/simeth Q6H PRN, calcium carbonate Q4H PRN, diazePAM Q6H PRN, diphenhydrAMINE Q6H PRN OR [DISCONTINUED] diphenhydrAMINE Q6H PRN, fentaNYL citrate PF Q1H PRN, hyoscyamine Q4H PRN, ondansetron (ZOFRAN) IV Q6H PRN, oxyCODONE Q3H PRN Physical Examination Vital Signs: Last Vital Signs: 24 Hour Range BP: 102/65 (12/27 946) Temp: 36.7 C (98.1 F) (12/27 946) Pulse: 82 (12/27 946) Respirations: 16 PER MINUTE (12/27 946) SpO2: 95 % (12/27 946) O2 Delivery: None (Room Air) (12/26 1849) BP: (102-155)/(65-86) Temp: [36.7 C (98 F)-36.8 C (98.2 F)] Pulse: [82-103] Respirations: [16 PER MINUTE-20 PER MINUTE] SpO2: [93 %-100 %] O2 Delivery: None (Room Air) General appearance: obese, alert, oriented, NAD HENT: mucus membranes moist, no oral lesions/thrush Eyes: EOMI, normal conj Lungs: no wheezing, rhonchi, rales appreciated - diminished basilar breath sounds Heart: Regular rhythm, reg rate, with no murmur, rub, gallop Abdomen: obese, normal garcia sounds, soft, non-tender, non distended Ext: No right leg edema, no calf tenderness, no joint swelling, s/p left hemipelvectomy; incision with clear drainage on dressing Skin: under main pannus ecchymoses + erythema with L sided superficial ulceration, no drainage, some lower abdominal wounds with eschar Extensive dressings s/p left hemipelvectomy - clear drainage mostly from posterior portion; some at distal stump; still swelling and slight erythema. Non -tender to light palpation. Psych: flat affect Lines: Carlos Manuel torres drain L abdomen - serosanguinous output Indwelling melchor catheter Lab Review Hematology Recent Labs 12/25/172 12/26/17 0401 12/27/17 0431 WBC 11.8* 11.3* 16.4* HGB 8.3* 7.9* 8.1* HCT 23.9* 23.5* 23.4* PLTCT 296 345 359 Chemistry Recent Labs 12/25/172 12/26/17 0401 12/27/17 0431 NA 131* 133* 133* K 3.6 3.5 3.8 CL 97* 98 100 CO2 27 27 27 BUN 6* 4* 7 CR 0.49 0.47 0.83 GFR >60 >60 >60 GLU 218* 247* 183* CA 7.5* 7.8* 8.0* PO4 -- 2.1 -- Microbiology, Radiology and other Diagnostics Review Microbiology data reviewed. 12/23 blood cultures (1/2 sets peripheral) + GBS (levaquin sensitive) 12/24 blood culture (1 set peripheral) ngtd Pertinent radiology images viewed. - CXR 12/24/17 Improvement in left basilar atelectasis without acute cardiopulmonary abnormality. CT pelvis 12/25 IMPRESSION 1. 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 There is a surgical defect or fracture through the coccyx and lower left sacral bodies. 2. Ill-defined fluid and air along the anterior margin of the surgical site away from the drain tip. However, no discrete drainable fluid collection is noted. Chari Pedro DO Pager [phone] Infectious Diseases Fellow * Fareed Holcomb MD - 12/27/2017 11:54 AM CDT Formatting of this note may be different from the original. Surgical Oncology Daily Progress Note Today's Date: 12/27/2017 Name: Beata Kaiser Admission Date: 12/13/2017 (LOS: 14 days) Assessment: 52 y.o. female 13 Days Post-Op from Procedure(s) (LRB): JAMIL PELVECTOMY (Left) CYSTORRHAPHY AND BLADDER NECK REPAIR, CYSTOSCOPY, (Bilateral) LEFT ILIAC EXPOSURE (Left) OR date: 12/14/2017 Principal Problem: Pelvic mass Active Problems: Pelvic mass in female Metabolic acidosis Acute blood loss as cause of postoperative anemia Depression Anxiety DM (diabetes mellitus) (HCC) Hypothyroidism Hemorrhagic shock (HCC) Plan: -To OR 12/30 for diverting colostomy -Please make patient NPO at midnight the night prior to OR. -Risks and benefits of operation have been discussed. Patient demonstrates good understanding and wishes to proceed with operation at this time. -Will consent patient for OR. -Wound/ostomy team for education and marking patient. -Prealbumin 12/22 was 4.0. If considering adding TPN, would recommend to have PICC or central line placed earlier if possible rather than wait for to allow of nutrition optimization. -Discussed patient with Dr. Mccollum _ Subjective: No acute events, continues to have stool contaminate wound. Objective: BP: (102-155)/(65-86) Temp: [36.7 C (98 F)-36.8 C (98.2 F)] Pulse: [82-103] Respirations: [16 PER MINUTE-20 PER MINUTE] SpO2: [93 %-100 %] O2 Delivery: None (Room Air) Lab Results Component Value Date/Time HGB 8.1 (L) 12/27/2017430 WBC 16.4 (H) 12/27/2017430 ] Lab Results Component Value Date/Time NA 133 (L) 12/27/2017430 K 3.8 12/27/2017430 CL 100 12/27/2017430 CO2 27 12/27/2017430 BUN 7 12/27/2017430 CR 0.83 12/27/2017430 ] Physical Exam: General: A&O x 3, no acute distress, appears stated age HEENT: Normocephalic. PERRLA, EOMI. Neuro: Non-focal, muscle strength and sensation grossly intact throughout. Pulm: Non-labored respirations on room air. No tachypnea. CV: RRR Abdomen: soft, non-tender, non-distended. No peritoneal signs. Extremities: LLE hemipelvectomy incision with eschar extending along the majority of the wound. Mild kimbrely-incisional erythema. Skin: warm, dry Fareed Holcomb MD Personal Pager: #[phone] Team Pager: # [phone] * Marlene Ramirez - 12/27/2017 10:15 AM CDT ORTHOTICS/PROSTHETICS Consult Note: NAME: Beata Kaiser ADMISSION DATE: admitted to hospital : 1965 AGE: 52 y.o. ROOM: [place] [address] DOCTOR: Date of Order: 12/24 Date of Service: 12/27 Services referred for: Prosthetic Eval and Treat: AK bo Description of condition/injury, including services:Amputations Size: 1x Side left Measurements: Area/circumference/Diameter/Length na Functional Goals discussed for device use: Reduce edema Device is to be ordered yes, delivered 12/27 Estimated date of delivery 12/27 Functional goals met: Yes The patient states satisfaction with the fit/function of device: Yes Additional supplies provided to the patient: no Patient Education: Written and/or verbal instruction/information provided to Patient and Hospital staff Information provided: device function, usage/break-in period, safety issues, donning/doffing of device, how/whom to report problems related to device/change in physical condition, hospital staff provided instructions, care and cleaning, fitting issues, benefits and precautions and skin inspection Patient did tolerate the procedure without incident/problem. Follow-up scheduled: Delivered left hemipelv compression garment today and left at bedside. Not donned today due to significant pain and diarrhea. When ready, to be worn at all times. Will check on fit and plan to deliver a second garment if fit is appropriate. PLAN: Order completed Marlene Ramirez 12/27/2017 * Lexus Shirley OT - 12/27/2017 10:05 AM CDT Formatting of this note may be different from the original. 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 Precautions: Falls L LE Precautions: LLE Non-Weight Bearing Comments: Lay on right side as much as possible for edema management per Ortho note 12/16; Don't lie flat for extended periods of time Pain / Complaints: Patient agrees to participate in therapy Pain Location: Left;Hip Pain Level Current: 3 Objective Psychosocial Status: Willing and Cooperative to Participate Persons Present: (rehab aide) Home Living Type of Home: House Home Layout: Performs ADL'S on One Level (2 steps to enter) Bathroom Shower / Tub: Tub/Shower Unit Prior Function Level Of [place]: Independent with ADLs and functional transfers Lives With: Spouse;Family (2 adult daughters and their SO) ADL's Where Assessed: Edge of Bed Grooming Assist: Stand By Assist Grooming Deficits: Setup;Teeth Care;Supervision/Safety (supervision for sitting balance, 1 UE support at all times) Functional Transfer Assist: Moderate Assist Functional Transfer Deficits: (supine<>sit) Comment: Pt supine upon OT arrival. Pt required assist for trunk to sit edge of bed. Pt sat edge of bed x10 minutes with assist varying from stand by assist to contact guard assist. Pt completed grooming, maintaining balance with 1 UE on bed or bedside table at all times. Pt completed theraband exercises seated EOB and supine. Pt able to complete BUE exercise with contact guard assist for sitting balance (no UE support on bed). Pt returned to supine with assist for RLE. Pt supine at OT departure with all needs within reach and bed alarm set ( turned to R with wedge). Activity Tolerance Endurance: 2/5 Tolerates 10-20 Minutes Exercise w/Multiple Rests Sitting Balance: 3/5 Sits w/o UE Support Up to 30 Seconds Comment: Pt completed 1 set x 10 reps shoulder adduction/abduction, elbow flexion, elbow extension, and bow and arrow exercises. (1 exercise seated EOB, remainder supine) Cognition Overall Cognitive Status: WFL to Adequately Complete Self Care Tasks Safely Education Persons Educated: Patient Teaching Methods: Verbal Instruction;Demonstration;Provided Printed Instructions Patient Response: Verbalized and Demo Understanding Topics: Role of OT, Goals for Therapy;UE Exercises Home Exercise Program: Theraband therex Goal Formulation: With Patient Assessment Assessment: Decreased ADL Status;Decreased UE Strength;Decreased Endurance; Decreased Self-Care Trans;Decreased High-Level ADLs Prognosis: Fair;w/Cont OT s/p Acute Discharge Goal Formulation: Patient AM-PAC 6 Clicks Daily Activity Inpatient Putting on and taking off regular lower body clothes?: Total Bathing (Including washing, rinsing, drying): A Lot Toileting, which includes using toilet, bedpan, or urinal: Total Putting on and taking off regular upper body clothing: A Lot Taking care of personal grooming such as brushing teeth: A Little Eating meals?: A Little Daily Activity Raw Score: 12 Standardized (t-scale) score: 30.6 CMS 0-100% Score: 66.57 CMS G Code Modifier: CL Plan Treatment Interventions: ADL Retraining;Functional Transfer Training;UE Strengthing/ROM;Patient/Family Training;Compensatory Technique Education OT Frequency: 5x/week Plan for next visit: bed>cardiac chair transfer (with new chair ordered), UE exercises, progress upright activity tolerance ADL Goals Patient Will Perform Grooming: at Edge of Bed;w/ Stand By Assist;Met Patient Will Perform Toileting: w/ Moderate Assist;w/ Bedside Commode Functional Transfer Goals Pt Will Transfer To Bedside Commode: w/ Moderate Assist Pt Will Transfer To Toilet: w/ Minimum Assist OT Discharge Recommendations OT Discharge Recommendations: Inpatient Setting Equipment Recommendations: BSC Additional Information: Recommend ongoing assistance for: Transfers, Bed mobility, Dressing, Bathing, Toileting Therapist: SACHA Nath/[place] [id number] Date: 12/27/2017 * Macho Nolasco, PIYUSHD - 12/27/2017 7:58 AM CDT Formatting of this note may be different from the original. Pharmacy Vancomycin Note Subjective: Beata Kaiser is a 52 y.o. female being treated for new onset fever, suspected HAP. Objective: Current Vancomycin Orders Medication Dose Route Frequency [START ON 12/28/2017] vancomycin (VANCOCIN) 1,000 mg in D5W 200mL IVPB ( premade) 1 g Intravenous Q12H vancomycin, pharmacy to manage 1 each Service Per Pharmacy Day of Vancomycin therapy: 5 Additional Abx: Zosyn 4.5g Cultures: 12/23 blood culture with Group B strep, , , White Blood Cells Date/Time Value Ref Range Status 12/27/2017 0431 16.4 (H) 4.5 - 11.0 K/UL Final 12/26/2017 0401 11.3 (H) 4.5 - 11.0 K/UL Final 12/25/2017 0442 11.8 (H) 4.5 - 11.0 K/UL Final Creatinine Date/Time Value Ref Range Status 12/27/2017 0431 0.83 0.4 - 1.00 MG/DL Final 12/26/2017 0401 0.47 0.4 - 1.00 MG/DL Final 12/25/2017 0442 0.49 0.4 - 1.00 MG/DL Final Blood Urea Nitrogen Date/Time Value Ref Range Status 12/27/2017 0431 7 7 - 25 MG/DL Final Estimated CrCl: ~90 ml/min Intake/Output Summary (Last 24 hours) at 12/27/17 0759 Last data filed at 12/27/17 0700 Gross per 24 hour Intake 7180 ml Output 6400 ml Net 780 ml Actual Weight: 98.5 kg (217 lb 2.5 oz) Dosing BW: 93 kg Drug Levels: Vancomycin Trough Date/Time Value Ref Range Status 12/27/2017 0533 23.2 (H) 10.0 - 20.0 MCG/ML Final Assessment: Target levels for this patient: Trough 12-15. Evaluation of level(s): A trough level is above goal, likely due to SUSI Plan: 1. Decrease vancomycin to 1000 mg Q12H, hold one dose for supratherapuetic level 2. Consider de-escalation of antibiotics due to possible adverse effects 3. Next scheduled level(s): Prior to the 4th dose of the new regimen, TBD on admin times 4. Pharmacy will continue to monitor and adjust therapy as needed. Macho Nolasco, FREDO 12/27/2017 * Flakita AllenSANJAY - 12/27/2017 2:[address] Torrez concerning pt increased MANNY drainage, HR of 103, and patient complain of dizziness, and numbness on extremities. Per Dr. Torrez he will see pt at bedside. Will continue to monitor ans assess patient status. * Hood Tellez MD - 12/26/2017 8:26 PM CDT Formatting of this note may be different from the original. General Progress Note Name: Beata Kaiser Today's Date: 12/26/2017 Admission Date: 12/13/2017 LOS: 13 days Assessment/Plan: Principal Problem: Pelvic mass Active Problems: Pelvic mass in female Metabolic acidosis Acute blood loss as cause of postoperative anemia Depression Anxiety DM (diabetes mellitus) (HCC) Hypothyroidism Hemorrhagic shock (HCC) Beata Kasier is a 52 y.o. female Hx of hypothyroidism and non-insulin dependent diabetes mellitus who presented to [facility] on 12/13/17 for scheduled left hemipelvectomy for chondrosarcoma. Pt underwent open biopsy of left pelvis previously on 11/29. 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 An IVC filter was placed recently Plan : Malnutrition: Patient reports eating much over the last 2 days Hyponatremia improving, continue free water restriction may consider liberalizing or lifting this restriction as sodium continuing to normalize Hyperglycemia: Uptitrating Lantus to 12 units, adding prandial 4 units, continuing medium dose correction factor; we will continue to follow and adjust Subjective Beata Kaiser is a 52 y.o. female. Feeling better, states pain is controlled, states diarrhea is slowing down a little bit, states she is continuing to eat and drink well, is a little bit worried about her elevated blood sugars still, would like to have fluid restriction lifted if possible Medications Scheduled Meds: acetaminophen (TYLENOL) tablet 1,000 mg 1,000 mg Oral Q6H* buPROPion (WELLBUTRIN) tablet 100 mg 100 mg Oral TID busPIRone (BUSPAR) tablet 15 mg 15 mg Oral BID fluconazole (DIFLUCAN) tablet 200 mg 200 mg Oral QDAY gabapentin (NEURONTIN) capsule 600 mg 600 mg Oral Q6H insulin aspart U-100 (NOVOLOG FLEXPEN) injection PEN 0-14 Units 0-14 Units Subcutaneous 5 X Day insulin aspart U-100 (NOVOLOG FLEXPEN) injection PEN 4 Units 4 Units Subcutaneous TID w/ meals insulin glargine (LANTUS SOLOSTAR, BASAGLAR) injection PEN 12 Units 12 Units Subcutaneous QHS lactobacillus rhamnosus GG (CULTURELLE) 15 billion cell capsule 1 capsule 1 capsule Oral BID w/meals levothyroxine (SYNTHROID) tablet 175 mcg 175 mcg Oral QDAY before breakfast metFORMIN (GLUCOPHAGE) tablet 500 mg 500 mg Oral BID w/meals pantoprazole DR (PROTONIX) tablet 40 mg 40 mg Oral QDAY(21) piperacillin/tazobactam (ZOSYN) 4.5 g/100 mL iso-osmotic IVPB 4.5 g Intravenous Q6H* rivaroxaban (XARELTO) tablet 20 mg 20 mg Oral QDAY w/breakfast vancomycin (VANCOCIN) 1,500 mg in dextrose 5% (D5W) IVPB 1,500 mg Intravenous Q12H* vancomycin, pharmacy to manage 1 each Service Per Pharmacy vitamin A & D topical ointment Topical BID vitamins, multi w/minerals tablet 1 tablet 1 tablet Oral QDAY Continuous Infusions: PRN and Respiratory Meds:alum/mag hydroxide/simeth Q6H PRN, calcium carbonate Q4H PRN, diazePAM Q6H PRN, diphenhydrAMINE Q6H PRN OR [DISCONTINUED] diphenhydrAMINE Q6H PRN, fentaNYL citrate PF Q1H PRN, hyoscyamine Q4H PRN, ondansetron (ZOFRAN) IV Q6H PRN, oxyCODONE Q3H PRN Objective: Vital Signs: Last Filed Vital Signs: 24 Hour Range BP: 136/79 (12/26 1849) Temp: 36.7 C (98.1 F) (12/26 1849) Pulse: 89 (12/26 1849) Respirations: 18 PER MINUTE (12/26 1849) SpO2: 93 % (12/26 1849) O2 Delivery: None (Room Air) (12/26 1849) BP: (108-155)/(59-86) Temp: [36.5 C (97.7 F)-37.1 C (98.7 F)] Pulse: [76-104] Respirations: [17 PER MINUTE-18 PER MINUTE] SpO2: [92 %-97 %] O2 Delivery: None (Room Air) Intensity Pain Scale 0-10 (Pain 1): 4 (12/26/17 1320) Vitals: 12/13/17 1115 12/17/17 1600 12/18/17 0600 Weight: 104.8 kg (231 lb 0.7 oz) 94.6 kg (208 lb 8.9 oz) 92.5 kg (203 lb 14.8 oz ) Intake/Output Summary: (Last 24 hours) Intake/Output Summary (Last 24 hours) at 12/26/172025 Last data filed at 12/26/17 1733 Gross per 24 hour Intake 0 ml Output 6560 ml Net -6560 ml Stool Occurrence: 1 Physical Exam Gen alert oriented, cooperative , Head: Normocephalic, without obvious abnormality, atraumatic Eyes: conjunctivae/corneas clear. PERRL, EOM's intact, Throat: Lips, mucosa, and tongue normal. Teeth and gums normal Neck: supple, symmetrical, trachea midline, no adenopathy, no JVD, no bruits, Back: symmetric, no curvature. ROM normal. No CVA tenderness. Lungs: clear to auscultation bilaterally, no wheezes, rales, rhonchi Heart: regular rate and rhythm, S1, S2 normal, no murmur, click, rub or gallop Abdomen: soft, tender. Bowel sounds normal. No masses, no organomegaly, non- distended flap in left lower abdomen melchor in place Extremities: LLE hemipelvectomy, dressings c/d/i drain in place , flap in left lower abdomen , edema plus 3 at surgery site , plus 1 RLE Lab Review 24-hour labs: Results for orders placed or performed during the hospital encounter of (from the past 24 hour(s)) POC GLUCOSE Collection Time: 12/25/17 8:35 PM Result Value Ref Range Glucose, POC 367 (H) 70 - 100 MG/DL POC GLUCOSE Collection Time: 12/26/17 1:28 AM Result Value Ref Range Glucose, POC 217 (H) 70 - 100 MG/DL CBC AND DIFF Collection Time: 12/26/17 4:01 AM Result Value Ref Range White Blood Cells 11.3 (H) 4.5 - 11.0 K/UL RBC 2.64 (L) 4.0 - 5.0 M/UL Hemoglobin 7.9 (L) 12.0 - 15.0 GM/DL Hematocrit 23.5 (L) 36 - 45 % MCV 88.9 80 - 100 FL MCH 29.8 26 - 34 PG MCHC 33.5 32.0 - 36.0 G/DL RDW 15.2 (H) 11 - 15 % Platelet Count 345 150 - 400 K/UL MPV 6.6 (L) 7 - 11 FL Neutrophils 77 41 - 77 % Lymphocytes 12 (L) 24 - 44 % Monocytes 9 4 - 12 % Eosinophils 2 0 - 5 % Basophils 0 0 - 2 % Absolute Neutrophil Count 8.70 (H) 1.8 - 7.0 K/UL Absolute Lymph Count 1.40 1.0 - 4.8 K/UL Absolute Monocyte Count 1.00 (H) 0 - 0.80 K/UL Absolute Eosinophil Count 0.30 0 - 0.45 K/UL Absolute Basophil Count 0.00 0 - 0.20 K/UL BASIC METABOLIC PANEL Collection Time: 12/26/17 4:01 AM Result Value Ref Range Sodium 133 (L) 137 - 147 MMOL/L Potassium 3.5 3.5 - 5.1 MMOL/L Chloride 98 98 - 110 MMOL/L CO2 27 21 - 30 MMOL/L Anion Gap 8 3 - 12 Glucose 247 (H) 70 - 100 MG/DL Blood Urea Nitrogen 4 (L) 7 - 25 MG/DL Creatinine 0.47 0.4 - 1.00 MG/DL Calcium 7.8 (L) 8.5 - 10.6 MG/DL eGFR Non >60 >60 mL/min eGFR >60 >60 mL/min MAGNESIUM Collection Time: 12/26/17 4:01 AM Result Value Ref Range Magnesium 2.0 1.6 - 2.6 mg/dL PHOSPHORUS Collection Time: 12/26/17 4:01 AM Result Value Ref Range Phosphorus 2.1 2.0 - 4.0 MG/DL POC GLUCOSE Collection Time: 12/26/17 8:31 AM Result Value Ref Range Glucose, POC 219 (H) 70 - 100 MG/DL POC GLUCOSE Collection Time: 12/26/17 1:20 PM Result Value Ref Range Glucose, POC 312 (H) 70 - 100 MG/DL POC GLUCOSE Collection Time: 12/26/17 5:42 PM Result Value Ref Range Glucose, POC 215 (H) 70 - 100 MG/DL Point of Care Testing (Last 24 hours) Glucose: (!) 247 (12/26/17 0401) POC Glucose (Download): (!) 215 (12/26/17 4566) Radiology and other Diagnostics Review: Pertinent radiology reviewed. 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 Pain: Patient complains of pain;02/27;Before activity Pain Location: Left;Hip Pain Interventions: Patient agrees to participate in therapy;Patient assisted into position of comfort L LE Precautions: LLE Non-Weight Bearing Comments: Lay on right side as much as possible for edema management per Ortho note 12/16; Don't lie flat for extended periods of time Ambulation Assist: Independent Mobility in Community without Device Patient Owned Equipment: Crutches Home Situation: Lives with Family Type of Home: House Entry Stairs: 1-2 Stairs In-Home Stairs: No Stairs BED MOBILITY/TRANSFERS: Bed Mobility/Transfers Bed Mobility: Rolling: Moderate Assist;Assist with Trunk Bed Mobility: Supine to Sit: Moderate Assist;x2 People;Assist with Trunk;Head of Bed Elevated;Requires Extra Time;Assist with R LE Bed Mobility: Sit to Supine: Moderate Assist;x2 People;Use of Overhead Trapeze; Assist with Trunk;Assist with R LE Transfer Type: Sit to/from Stand Transfer: Assistance Level: To/From;Bed;Maximal Assist;x2 People Transfer: Assistive Device: Roller Walker Transfers: Type Of Assistance: Elevated Bed;Knees(s) Blocked;Requires Extra Time ;For Balance;For Strength Deficit End Of Activity Status: In Bed;Nursing Notified;Instructed Patient to Request Assist with Mobility;Instructed Patient to Use Call Light BALANCE: Balance Sitting Balance: Static Sitting Balance;2 UE Support;Minimal Assist Standing Balance: Static Standing Balance;2 UE support;Maximal Assist;x2 People ACTIVITY/EXERCISE: Activity / Exercise Sit Edge Of Bed: 10 minutes Sit Edge Of Bed Assist: Stand By Assist;Minimal Assist;Variable Stand At Bedside : (30 seconds) Stand At Bedside Assist: Maximum Assist;x2 People Comments: Patient denies dizziness with standing. She had difficulty bringing hips forward and head up to stand upright. Patient declined additional standing attempts due to fatigue EDUCATION: Education Persons Educated: Patient Patient Barriers To Learning: Pain;Anxiety Interventions: Repetition of Instructions Teaching Methods: Verbal Instruction;Demonstration Patient Response: Verbalized Understanding;Return Demonstration Topics: Mobility Progression;Plan/Goals of PT Interventions;Use of Assistive Device/Orthosis;Safety Awareness;Importance of Increasing Activity;Positioning ASSESSMENT/PROGRESS: Assessment/Progress Impaired Mobility Due To: Pain;Post Surgical Precautions;Post Surgical Changes; Decreased Activity Tolerance Assessment/Progress: Should Improve w/ Continued PT AM-PAC 6 Clicks Basic Mobility Inpatient Turning from your back to your side while in a flat bed without using bed rails : Total Moving from lying on your back to sitting on the side of a flatbed without using bedrails : Total Moving to and from a bed to a chair (including a wheelchair): Total Standing up from a chair using your arms (e.g. wheelchair, or bedside chair): Total To walk in hospital room: Total Climbing 3-5 steps with a railing: Total Raw Score: 6 Standardized (T-scale) Score: 16.59 Basic Mobility CMS 0-100%: 100 CMS G Code Modifier for Basic Mobility: CN GOALS: Goals Goal Formulation: With Patient Time For Goal Achievement: 7 days Pt Will Go Supine To/From Sit: w/ Moderate Assist Pt Will Transfer Bed/Chair: w/ Moderate Assist Pt Will Transfer Sit to Stand: w/ Moderate Assist PLAN: Plan Treatment Interventions: Mobility Training;Strengthening Plan Frequency: 5-7 Days per Week Comments: Progress sitting balance and tolerance, continue strengthening exercises RECOMMENDATIONS: PT Discharge Recommendations PT Discharge Recommendations: Inpatient Setting Therapist: Gerald Lund PT, DPT Date: 12/26/2017 * Christin Helms, OT - 12/26/2017 11:40 AM CDT Formatting of this note may be different from the original. 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 Home Living Type of Home: House Home Layout: Performs ADL'S on One Level (2 steps to enter) Bathroom Shower / Tub: Tub/Shower Unit Prior Function Level Of [place]: Independent with ADLs and functional transfers Lives With: Spouse;Family (2 adult daughters and their SO) ADL's Where Assessed: Edge of Bed Functional Transfer Assist: Moderate Assist (Sup<>sit EOB) Functional Transfer Deficits: (Dizziness during and 1 min after upright, resolved with PLB) Comment: Pt able to bring R LE to EOB and boost self up apx half way without assist. Required brief Mod assist to move R arm under torso to assist with sitting upright from logroll. Able to lower torso to bed, needing assist with R LE to return to sidelying. Required extra time but pt willing to attempt as much as possible without assist today. Activity Tolerance Sitting Balance: 2+/5 Supports Self w/ 1 UE (brief trials 2-3 seconds each) Comment: Pt sat EOB for 18 min for static and dynamic sitting balance trials. Able to tolerate weight shifting EOB for repositioning. Education Persons Educated: Patient Barriers To Learning: None Noted Topics: (coping skills, nerve regeneration, POC) Plan Progress: (Next:initiate BUE HEP;Stand trials vs EOB two handed adls) OT Frequency: 5x/week Functional Transfer Goals Pt Will Transfer To Bedside Commode: w/ Moderate Assist Pt Will Transfer To Toilet: w/ Minimum Assist OT Discharge Recommendations OT Discharge Recommendations: Inpatient Setting Equipment Recommendations: Drop arm BSC, w/c, retail operations manager, slide board Additional Information: Recommend ongoing assistance for: Transfers, Bed mobility, Ambulation, Stairs, In and out of house, Toileting Therapist: Christin Helms, LELAND Date: 12/26/2017 * Bryanna Sepulveda - 12/26/2017 11:39 AM CDT PHYSICAL THERAPY MOBILITY NOTE Patient participated in an exercise program with the assistance of the P.T. mobility aide as part of the ongoing physical therapy plan of care. Aide: Bryanna Sepulveda Date: 12/26/2017 * Christin Helms, LELAND - 12/26/2017 9:47 AM CDT OCCUPATIONAL THERAPY Pt not seen on first attempt, currently working with nursing staff and rounding physicians. Will f/u later today as able Therapist: Christin Helms, LELAND Date: 12/26/2017 * César Davis MD - 12/26/2017 8:32 AM CDT Formatting of this note may be different from the original. Subjective: No acute events overnight. Continues to have operative site pain. Objective: Blood pressure 108/59, pulse 94, temperature 37.1 C (98.7 F), height 162.6 cm (64"), weight 92.5 kg (203 lb 14.8 oz), SpO2 92 %. General: AAOx3, NAD Cardiac: RRR Respirations: Unlabored Extremities: LLE hemipelvectomy, dressings with small amount of serous drainage Post-op Drains: (24 hours) MANNY: 1050 No results for input(s): PTT, INR in the last 72 hours. CBC w/Diff Lab Results Component Value Date/Time WBC 11.3 (H) 12/26/2017 04:01 AM HGB 7.9 (L) 12/26/2017 04:01 AM HCT 23.5 (L) 12/26/2017 04:01 AM PLTCT 345 12/26/2017 04:01 AM Basic Metabolic Profile Lab Results Component Value Date/Time NA 133 (L) 12/26/2017 04:01 AM K 3.5 12/26/2017 04:01 AM CL 98 12/26/2017 04:01 AM CO2 27 12/26/2017 04:01 AM GAP 8 12/26/2017 04:01 AM Lab Results Component Value Date/Time BUN 4 (L) 12/26/2017 04:01 AM CR 0.47 12/26/2017 04:01 AM GLU 247 (H) 12/26/2017 04:01 AM A/P: 52 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 psych and psychology consults for coping, depression - appreciate assistance -IM consult for hyponatremia- appreciate recs, improving -ID consult for persistent leukocytosis and fevers - Vanc/katrinasyn, appreciate recs -Nutrition following for optimization; calorie count performed yesterday; request Nutrition evaluation for possible feeding tube placement -CT pelvis ordered to evaluate fluid collection - no discrete fluid collection -General Surgery consult for possible colostomy Dispo: Continue inpatient care César Davis MD Pager [phone] * Hood Tellez MD - 12/25/2017 6:49 PM CDT Formatting of this note may be different from the original. General Progress Note Name: Beata Kaiser Today's Date: 12/25/2017 Admission Date: 12/13/2017 LOS: 12 days Assessment/Plan: Principal Problem: Pelvic mass Active Problems: Pelvic mass in female Metabolic acidosis Acute blood loss as cause of postoperative anemia Depression Anxiety DM (diabetes mellitus) (HCC) Hypothyroidism Hemorrhagic shock (HCC) Beata Kaiser is a 52 y.o. female Hx of hypothyroidism and non-insulin dependent diabetes mellitus who presented to [facility] on 12/13/17 for scheduled left hemipelvectomy for chondrosarcoma. Pt underwent open biopsy of left pelvis previously on 11/29. 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 An IVC filter was placed recently Plan : Continue calorie count, patient p.o. intake improved Hyponatremia improving, continue free water restriction and encourage patient to take p.o. Patient eating better today, resultantly blood sugars elevated: Started glargine and continue MD CF. We will add prandial insulin tomorrow if continued elevated readings. I will see patient again tomorrow. Subjective Beata Kaiser is a 52 y.o. female. Patient had questions about CT scan, I told her that it appears there evaluating a possible fluid collection. She states that she is eating much better and was worried that eating too much would elevate her blood sugar. I reassured her that we want her to eat as much as she can right now to optimize nutrition and we can elevated blood sugars with insulin. I explained her that I will adjust insulin today and that her hyponatremia is better. Patient states her pain is adequately controlled. She denies vomiting or nausea. She states she is having a lot of loose stools and wonders if it might be easier just to get a colostomy. Medications Scheduled Meds: acetaminophen (TYLENOL) tablet 1,000 mg 1,000 mg Oral Q6H* buPROPion (WELLBUTRIN) tablet 100 mg 100 mg Oral TID busPIRone (BUSPAR) tablet 15 mg 15 mg Oral BID fluconazole (DIFLUCAN) tablet 200 mg 200 mg Oral QDAY gabapentin (NEURONTIN) capsule 600 mg 600 mg Oral Q6H insulin aspart U-100 (NOVOLOG FLEXPEN) injection PEN 0-14 Units 0-14 Units Subcutaneous 5 X Day insulin glargine (LANTUS SOLOSTAR, BASAGLAR) injection PEN 8 Units 8 Units Subcutaneous Q24H* lactobacillus rhamnosus GG (CULTURELLE) 15 billion cell capsule 1 capsule 1 capsule Oral BID w/meals levothyroxine (SYNTHROID) tablet 175 mcg 175 mcg Oral QDAY before breakfast metFORMIN (GLUCOPHAGE) tablet 500 mg 500 mg Oral BID w/meals pantoprazole DR (PROTONIX) tablet 40 mg 40 mg Oral QDAY(21) piperacillin/tazobactam (ZOSYN) 4.5 g/100 mL iso-osmotic IVPB 4.5 g Intravenous Q6H* rivaroxaban (XARELTO) tablet 20 mg 20 mg Oral QDAY w/breakfast vancomycin (VANCOCIN) 1,500 mg in dextrose 5% (D5W) IVPB 1,500 mg Intravenous Q12H* vancomycin, pharmacy to manage 1 each Service Per Pharmacy vitamins, multi w/minerals tablet 1 tablet 1 tablet Oral QDAY Continuous Infusions: sodium chloride 0.9 % infusion 125 mL/hr at 12/25/17 1521 PRN and Respiratory Meds:alum/mag hydroxide/simeth Q6H PRN, calcium carbonate Q4H PRN, diazePAM Q6H PRN, diphenhydrAMINE Q6H PRN OR [DISCONTINUED] diphenhydrAMINE Q6H PRN, fentaNYL citrate PF Q1H PRN, hyoscyamine Q4H PRN, ondansetron (ZOFRAN) IV Q6H PRN, oxyCODONE Q3H PRN Objective: Vital Signs: Last Filed Vital Signs: 24 Hour Range BP: 121/72 (12/25 1724) Temp: 36.6 C (97.9 F) (12/25 1724) Pulse: 99 (12/25 1724) Respirations: 16 PER MINUTE (12/25 1724) SpO2: 95 % (12/25 1724) O2 Delivery: None (Room Air) (12/25 1724) SpO2 Pulse: 99 (12/25 2115) BP: (102-121)/(59-75) Temp: [36.3 C (97.3 F)-36.8 C (98.2 F)] Pulse: [92-113] Respirations: [16 PER MINUTE-18 PER MINUTE] SpO2: [95 %-99 %] O2 Delivery: None (Room Air) Intensity Pain Scale 0-10 (Pain 1): 4 (12/25/17 181) Vitals: 12/13/17 1115 12/17/17 1600 12/18/17 0600 Weight: 104.8 kg (231 lb 0.7 oz) 94.6 kg (208 lb 8.9 oz) 92.5 kg (203 lb 14.8 oz ) Intake/Output Summary: (Last 24 hours) Intake/Output Summary (Last 24 hours) at 12/25/17 184 Last data filed at 12/25/17 1726 Gross per 24 hour Intake 1972 ml Output 7215 ml Net -5243 ml Stool Occurrence: 1 Physical Exam Gen alert oriented, cooperative , Head: Normocephalic, without obvious abnormality, atraumatic Eyes: conjunctivae/corneas clear. PERRL, EOM's intact, Throat: Lips, mucosa, and tongue normal. Teeth and gums normal Neck: supple, symmetrical, trachea midline, no adenopathy, no JVD, no bruits, Back: symmetric, no curvature. ROM normal. No CVA tenderness. Lungs: clear to auscultation bilaterally, no wheezes, rales, rhonchi Heart: regular rate and rhythm, S1, S2 normal, no murmur, click, rub or gallop Abdomen: soft, tender. Bowel sounds normal. No masses, no organomegaly, non- distended flap in left lower abdomen melchor in place Extremities: LLE hemipelvectomy, dressings c/d/i drain in place , flap in left lower abdomen , edema plus 3 at surgery site , plus 1 RLE Lab Review 24-hour labs: Results for orders placed or performed during the hospital encounter of (from the past 24 hour(s)) POC GLUCOSE Collection Time: 12/24/17 8:18 PM Result Value Ref Range Glucose, POC 263 (H) 70 - 100 MG/DL POC GLUCOSE Collection Time: 12/25/17 3:24 AM Result Value Ref Range Glucose, POC 200 (H) 70 - 100 MG/DL CBC AND DIFF Collection Time: 12/25/17 4:42 AM Result Value Ref Range White Blood Cells 11.8 (H) 4.5 - 11.0 K/UL RBC 2.69 (L) 4.0 - 5.0 M/UL Hemoglobin 8.3 (L) 12.0 - 15.0 GM/DL Hematocrit 23.9 (L) 36 - 45 % MCV 88.7 80 - 100 FL MCH 30.9 26 - 34 PG MCHC 34.8 32.0 - 36.0 G/DL RDW 14.8 11 - 15 % Platelet Count 296 150 - 400 K/UL MPV 6.9 (L) 7 - 11 FL Neutrophils 80 (H) 41 - 77 % Lymphocytes 9 (L) 24 - 44 % Monocytes 9 4 - 12 % Eosinophils 2 0 - 5 % Basophils 0 0 - 2 % Absolute Neutrophil Count 9.40 (H) 1.8 - 7.0 K/UL Absolute Lymph Count 1.00 1.0 - 4.8 K/UL Absolute Monocyte Count 1.10 (H) 0 - 0.80 K/UL Absolute Eosinophil Count 0.20 0 - 0.45 K/UL Absolute Basophil Count 0.00 0 - 0.20 K/UL BASIC METABOLIC PANEL Collection Time: 12/25/17 4:42 AM Result Value Ref Range Sodium 131 (L) 137 - 147 MMOL/L Potassium 3.6 3.5 - 5.1 MMOL/L Chloride 97 (L) 98 - 110 MMOL/L CO2 27 21 - 30 MMOL/L Anion Gap 7 3 - 12 Glucose 218 (H) 70 - 100 MG/DL Blood Urea Nitrogen 6 (L) 7 - 25 MG/DL Creatinine 0.49 0.4 - 1.00 MG/DL Calcium 7.5 (L) 8.5 - 10.6 MG/DL eGFR Non >60 >60 mL/min eGFR >60 >60 mL/min VANCOMYCIN TROUGH Collection Time: 12/25/17 4:42 AM Result Value Ref Range Vancomycin Trough 10.0 10.0 - 20.0 MCG/ML POC GLUCOSE Collection Time: 12/25/17 9:01 AM Result Value Ref Range Glucose, POC 261 (H) 70 - 100 MG/DL POC GLUCOSE Collection Time: 12/25/17 12:02 PM Result Value Ref Range Glucose, POC 306 (H) 70 - 100 MG/DL POC GLUCOSE Collection Time: 12/25/17 5:19 PM Result Value Ref Range Glucose, POC 292 (H) 70 - 100 MG/DL Point of Care Testing (Last 24 hours) Glucose: (!) 218 (12/25/17 0442) POC Glucose (Download): (!) 292 (12/25/17 2250) Radiology and other Diagnostics Review: Pertinent radiology reviewed. Hood Tellez MD Pager * Lina Lea RN - 12/25/2017 5:33 PM CDT I have reviewed the notes, assessment, and/or procedures performed by SN Abhishek and concur with her/his documentation unless otherwise noted. * Lian Hogan - 12/25/2017 3:14 PM CDT PHYSICAL THERAPY MOBILITY NOTE Patient was assigned for activity with the mobility aide by the supervising therapist. Patient declined to participate despite of several tries. She said that she is severe pain and cannot do any exercises. Aide: Lian Hogan Date: 12/25/2017 * Trinity Mike, PT - 12/25/2017 2:48 PM CDT PHYSICAL THERAPY NOTE Patient refused therapy on this date due to not feeling right and too much pain. Per RN, patient appears more confused and decreased awareness compared to previous days. Therapy will attempt treatment when appropriate. Therapist: Trinity Mike, PT Date: 12/25/2017 * Lina Lea, RN - 12/25/2017 2:34 PM CDT Placed order for nurse pain management consult per Dr. Luther's request. 1415: Contacted Jasper Lafleur with pain management. Pain management is not in house on the weekend. Recommended consult with anesthesia acute pain team. Order placed. * Tamiko Luther MD - 12/25/2017 1:39 PM CDT I met with Ms. Kaiser this afternoon. She states that she is having abdominal pain when she needs to have a bowel movement. She is concerned that she is having controlling her bowel movements and is soiling her dressing. She notes that it is painful to change the dressing to keep it clean. She also understands and remembers the conversation prior to surgery that bowel and bladder control can be a problem after this type of surgery. She notes that her pain is not controlled with the current regimen. Most of the pain is in the operative site and is more significant than her phantom pain. She would like to have her gabapentin more frequently but is concerned that is makes her confused. I had requested a CT of the pelvis to assess for a fluid collection, given the continued large drain output. I reviewed this and don't see a fluid collection. I told Ms. Kaiser that we would place a pain management consult to better address her pain without sedating her. I also told her that we would consult general surgery (Dr. Mccollum was involved with her initial surgery) to discuss the pros and cons of a colostomy. A temporary colostomy would make her care less problematic at this time. I think that her large MANNY outlet is due to third spacing and her low serum albumin. Nutrition is working with her, but we need to become more aggressive with her nutrition. She may do better with 5 or 6 small meals or snacks a day, in addition to her protein shakes. * Sofía Chua, PIYUSHD - 12/25/2017 9:32 AM CDT Formatting of this note may be different from the original. Pharmacy Vancomycin Note Subjective: Beata Kaiser is a 52 y.o. female being treated for new onset fever, suspected HAP. Objective: Current Vancomycin Orders Medication Dose Route Frequency vancomycin, pharmacy to manage 1 each Service Per Pharmacy Day of Vancomycin therapy: 3 Additional Abx: Zosyn Cultures: 12/23 blood culture with Group B strep, , , White Blood Cells Date/Time Value Ref Range Status 12/25/20172 11.8 (H) 4.5 - 11.0 K/UL Final 12/24/2017 0716 15.8 (H) 4.5 - 11.0 K/UL Final 12/24/2017 0434 16.9 (H) 4.5 - 11.0 K/UL Final 12/23/2017 0729 20.8 (H) 4.5 - 11.0 K/UL Final Creatinine Date/Time Value Ref Range Status 12/25/2017 0442 0.49 0.4 - 1.00 MG/DL Final 12/24/2017 0434 0.57 0.4 - 1.00 MG/DL Final 12/23/2017 07 0.72 0.4 - 1.00 MG/DL Final Blood Urea Nitrogen Date/Time Value Ref Range Status 12/25/2017 0442 6 (L) 7 - 25 MG/DL Final Estimated CrCl: ~ 100 mL/min Intake/Output Summary (Last 24 hours) at 12/25/17 0932 Last data filed at 12/25/17 0800 Gross per 24 hour Intake 3439 ml Output 8645 ml Net -5206 ml UOP: Actual Weight: 92.5 kg (203 lb 14.8 oz) Dosing BW: 93 kg Drug Levels: Vancomycin Trough Date/Time Value Ref Range Status 12/25/2017441 10.0 10.0 - 20.0 MCG/ML Final Assessment: Target levels for this patient: Trough 12-15. Evaluation of level(s): Level drawn slightly early (~10.5 hours after previous dose was given) so does not represent a true trough. Likely that patient's true trough is even less than 10 mcg/ml which would be subtherapeutic. Plan: 1. Based on subtherapeutic level, will increase dose to vancomycin 1500mg IV every 12 hours. 2. Next scheduled level(s): Prior to 4th dose of increased regimen 3. Pharmacy will continue to monitor and adjust therapy as needed. Sofía Chua, PHARMD 12/25/2017 * César Davis MD - 12/25/2017 8:54 AM CDT Formatting of this note may be different from the original. Subjective: No acute events overnight. Sleeping this morning, and pain relatively well-controlled. Objective: Blood pressure 108/64, pulse 92, temperature 36.4 C (97.5 F), height 162.6 cm (64"), weight 92.5 kg (203 lb 14.8 oz), SpO2 97 %. General: AAOx3, NAD Cardiac: RRR Respirations: Unlabored Extremities: LLE hemipelvectomy, dressings with small amount of serous drainage Post-op Drains: (24 hours) MANNY: 2220 No results for input(s): PTT, INR in the last 72 hours. CBC w/Diff Lab Results Component Value Date/Time WBC 11.8 (H) 12/25/2017 04:42 AM HGB 8.3 (L) 12/25/2017 04:42 AM HCT 23.9 (L) 12/25/2017 04:42 AM PLTCT 296 12/25/2017 04:42 AM Basic Metabolic Profile Lab Results Component Value Date/Time NA 131 (L) 12/25/2017 04:42 AM K 3.6 12/25/2017 04:42 AM CL 97 (L) 12/25/2017 04:42 AM CO2 27 12/25/2017 04:42 AM GAP 7 12/25/2017 04:42 AM Lab Results Component Value Date/Time BUN 6 (L) 12/25/2017 04:42 AM CR 0.49 12/25/2017 04:42 AM GLU 218 (H) 12/25/2017 04:42 AM A/P: 52 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 General Progress Note Name: Beata Kaiser Today's Date: 12/24/2017 Admission Date: 12/13/2017 LOS: 11 days Assessment/Plan: Principal Problem: Pelvic mass Active Problems: Pelvic mass in female Metabolic acidosis Acute blood loss as cause of postoperative anemia Depression Anxiety DM (diabetes mellitus) (HCC) Hypothyroidism Hemorrhagic shock (HCC) Beata Kaiser is a 52 y.o. female Hx of hypothyroidism and non-insulin dependent diabetes mellitus who presented to [facility] on 12/13/17 for scheduled left hemipelvectomy for chondrosarcoma. Pt underwent open biopsy of left pelvis previously on 11/29. 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 An IVC filter was placed recently Plan : I agree with calorie count, patient p.o. intake improved Regarding hyponatremia it will improve with IV fluids or increased p.o. intake however I felt IV fluids were increased swelling t in the dependent area of the abdomen. If hyponatremia worsens restart IV fluids. If patient will need tube feeding we may have to start her on insulin. Dr Tellez will follow over weekend Subjective Beata Kaiser is a 52 y.o. female. Lethargy improved , patient is getting 1 unit of RBCs transfusion today, she reported that she has lower abdominal pain , diarrhea is improved she had one bowel movement today, she is eating better calorie counts was started Review of system no nausea no vomiting no chest pain or shortness of breath afebrile. Medications Scheduled Meds: acetaminophen (TYLENOL) tablet 1,000 mg 1,000 mg Oral Q6H* buPROPion (WELLBUTRIN) tablet 100 mg 100 mg Oral TID busPIRone (BUSPAR) tablet 15 mg 15 mg Oral BID fluconazole (DIFLUCAN) tablet 200 mg 200 mg Oral QDAY gabapentin (NEURONTIN) capsule 600 mg 600 mg Oral Q6H insulin aspart U-100 (NOVOLOG FLEXPEN) injection PEN 0-14 Units 0-14 Units Subcutaneous 5 X Day levothyroxine (SYNTHROID) tablet 175 mcg 175 mcg Oral QDAY before breakfast metFORMIN (GLUCOPHAGE) tablet 500 mg 500 mg Oral BID w/meals pantoprazole DR (PROTONIX) tablet 40 mg 40 mg Oral QDAY(21) piperacillin/tazobactam (ZOSYN) 4.5 g/100 mL iso-osmotic IVPB 4.5 g Intravenous Q6H* rivaroxaban (XARELTO) tablet 20 mg 20 mg Oral QDAY w/breakfast vancomycin (VANCOCIN) 1,250 mg in dextrose 5% (D5W) IVPB 1,250 mg Intravenous Q12H* vancomycin, pharmacy to manage 1 each Service Per Pharmacy Continuous Infusions: sodium chloride 0.9 % infusion 125 mL/hr at 12/24/17 0911 PRN and Respiratory Meds:alum/mag hydroxide/simeth Q6H PRN, calcium carbonate Q4H PRN, diazePAM Q6H PRN, diphenhydrAMINE Q6H PRN OR [DISCONTINUED] diphenhydrAMINE Q6H PRN, fentaNYL citrate PF Q1H PRN, hyoscyamine Q4H PRN, ondansetron (ZOFRAN) IV Q6H PRN, oxyCODONE Q4H PRN Objective: Vital Signs: Last Filed Vital Signs: 24 Hour Range BP: 122/70 (12/24 1641) Temp: 36.5 C (97.7 F) (12/24 1641) Pulse: 103 (12/24 1641) Respirations: 16 PER MINUTE (12/24 1641) SpO2: 100 % (12/24 1641) O2 Delivery: None (Room Air) (12/24 1000) BP: (91-138)/(55-75) Temp: [36.4 C (97.5 F)-37.3 C (99.2 F)] Pulse: [83-107] Respirations: [12 PER MINUTE-20 PER MINUTE] SpO2: [96 %-100 %] O2 Delivery: None (Room Air) Intensity Pain Scale 0-10 (Pain 1): 8 (12/24/17 1644) Vitals: 12/13/17 1115 12/17/17 1600 12/18/17 0600 Weight: 104.8 kg (231 lb 0.7 oz) 94.6 kg (208 lb 8.9 oz) 92.5 kg (203 lb 14.8 oz ) Intake/Output Summary: (Last 24 hours) Intake/Output Summary (Last 24 hours) at 12/24/17 1729 Last data filed at 12/24/17 1620 Gross per 24 hour Intake 500 ml Output 6190 ml Net -5690 ml Stool Occurrence: 1 Physical Exam Gen alert oriented, cooperative , Head: Normocephalic, without obvious abnormality, atraumatic Eyes: conjunctivae/corneas clear. PERRL, EOM's intact, Throat: Lips, mucosa, and tongue normal. Teeth and gums normal Neck: supple, symmetrical, trachea midline, no adenopathy, no JVD, no bruits, Back: symmetric, no curvature. ROM normal. No CVA tenderness. Lungs: clear to auscultation bilaterally, no wheezes, rales, rhonchi Heart: regular rate and rhythm, S1, S2 normal, no murmur, click, rub or gallop Abdomen: soft, tender. Bowel sounds normal. No masses, no organomegaly, non- distended flap in left lower abdomen melchor in place Extremities: LLE hemipelvectomy, dressings c/d/i drain in place , flap in left lower abdomen , edema plus 3 at surgery site , plus 1 RLE Lab Review 24-hour labs: Results for orders placed or performed during the hospital encounter of (from the past 24 hour(s)) SODIUM-URINE RANDOM Collection Time: 12/23/17 6:14 PM Result Value Ref Range Sodium, Random <10 MMOL/L OSMOLALITY-URINE RANDOM Collection Time: 12/23/17 6:14 PM Result Value Ref Range Osmolality-Urine 298 50 - 1,400 MOS/KG POC GLUCOSE Collection Time: 12/23/17 6:56 PM Result Value Ref Range Glucose, POC 169 (H) 70 - 100 MG/DL POC GLUCOSE Collection Time: 12/23/17 9:18 PM Result Value Ref Range Glucose, POC 133 (H) 70 - 100 MG/DL BASIC METABOLIC PANEL Collection Time: 12/24/17 4:34 AM Result Value Ref Range Sodium 126 (L) 137 - 147 MMOL/L Potassium 3.9 3.5 - 5.1 MMOL/L Chloride 92 (L) 98 - 110 MMOL/L CO2 27 21 - 30 MMOL/L Anion Gap 7 3 - 12 Glucose 168 (H) 70 - 100 MG/DL Blood Urea Nitrogen 9 7 - 25 MG/DL Creatinine 0.57 0.4 - 1.00 MG/DL Calcium 7.5 (L) 8.5 - 10.6 MG/DL eGFR Non >60 >60 mL/min eGFR >60 >60 mL/min CBC Collection Time: 12/24/17 4:34 AM Result Value Ref Range White Blood Cells 16.9 (H) 4.5 - 11.0 K/UL RBC 2.46 (L) 4.0 - 5.0 M/UL Hemoglobin 7.3 (L) 12.0 - 15.0 GM/DL Hematocrit 21.3 (L) 36 - 45 % MCV 86.6 80 - 100 FL MCH 29.9 26 - 34 PG MCHC 34.5 32.0 - 36.0 G/DL RDW 14.7 11 - 15 % Platelet Count 294 150 - 400 K/UL MPV 7.7 7 - 11 FL CBC Collection Time: 12/24/17 7:16 AM Result Value Ref Range White Blood Cells 15.8 (H) 4.5 - 11.0 K/UL RBC 2.46 (L) 4.0 - 5.0 M/UL Hemoglobin 7.4 (L) 12.0 - 15.0 GM/DL Hematocrit 21.3 (L) 36 - 45 % MCV 86.7 80 - 100 FL MCH 30.0 26 - 34 PG MCHC 34.6 32.0 - 36.0 G/DL RDW 14.7 11 - 15 % Platelet Count 291 150 - 400 K/UL MPV 7.5 7 - 11 FL POC GLUCOSE Collection Time: 12/24/17 9:15 AM Result Value Ref Range Glucose, POC 182 (H) 70 - 100 MG/DL TYPE & CROSSMATCH Collection Time: 12/24/17 9:40 AM Result Value Ref Range Units Ordered 1 Crossmatch Expires 12/27/2017 Record Check FOUND ABO/RH(D) A POS Antibody Screen NEG Electronic Crossmatch YES Unit Number [id number] Blood Component Type RBC,ADSOL,LEUKO REDUCED Unit Division 0 Status OF Unit ISSUED Transfusion Status OK TO TRANSFUSE Crossmatch Result COMPATIBLE,ELECTRONIC POC GLUCOSE Collection Time: 12/24/17 2:02 PM Result Value Ref Range Glucose, POC 235 (H) 70 - 100 MG/DL Point of Care Testing (Last 24 hours) Glucose: (!) 168 (12/24/17 0434) POC Glucose (Download): (!) 235 (12/24/17 1402) Radiology and other Diagnostics Review: Pertinent radiology reviewed. Luis Sargent MD Pager [phone] * Italia Ramos RN - 12/24/2017 3:33 PM CDT I have reviewed the notes, assessments, and/or procedures performed by Emely Paredes RN and concur with her documentation unless otherwise noted. * Italia Ramos RN - 12/24/2017 2:38 PM CDT 09/20 unit pRBCs started per Dr. Zarate's order. Type & Crossmatch current, informed consent signed. Verified with Nallely Martínez RN. Pt educated on the signs and symptoms of a transfusion reaction, no questions at this time. This RN will remain with patient for the first 15 minutes of infusion. Vitals will be taken per protocol. * Tamiko Luther MD - 12/24/2017 1:[address] Zarate and I changed Ms. Kaiser's dressing earlier this week and today. She continues to have serous drainage from her MANNY drain. Her flap remains swollen, most likely related to her compromised vein, as well as her low albumin , There is no warmth or erythema. There are diffuse blisters, primarily anteriorly and along her perineum. Ms. Kaiser was tearful today, understandably so. We will have psychology see her, as well as to have psychiatry continue to follow her. Her affect would improve some with more activity. We will see if PT can see her more often, give her therabands to work on her own, work with her on exercises that she can do independently on her RLE. We emphasized with her and her nurses again today that she needs to mobilize more, needs to sitting up in bed or a chair a large portion of the day, etc. We also discussed with nursing again that she needs to be fully on her right side most of the time that she is in bed. Her supine positioning is leading some of the flap edema as well as compromising portions of the flap. The distal aspect of the flap has some eschar, likely related to some degree to pressure. We will also work on a calorie count today and may need to start additional nutritional supplementation. * Emely Paredes - 12/24/2017 1:24 PM CDT Pt alert and oriented x4. Initially had a flexi seal in the morning and had been removed by noon. Incontinent of bowel with liquid consistency. Negative for CDiff for now. Melchor catheter in place and patent draining clear yellow urine. Rounds was made this morning and had pt wound dressing changed on left torso. MANNY drain had about 480cc output and still draining. Doctors aware. Abnormal labs and will receive 1 unit of blood soon. * Italia Ramos, RN - 12/24/2017 11:45 AM CDT Pt MANNY drain having large amount of output, drained 480ml. As soon as MANNY drained it fills back up again. Dr. Zarate notified via text page. No new orders at this time. * Lexus Shirley, LELAND - 12/24/2017 11:30 AM CDT Formatting of this note may be different from the original. 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 Precautions: Falls L LE Precautions: LLE Non-Weight Bearing Comments: Lay on right side as much as possible for edema management per Ortho note 12/16; Don't lie flat for extended periods of time Pain / Complaints: Patient agrees to participate in therapy Pain Location: Left;Hip Pain Level Current: (Pt did not rate.) Objective Psychosocial Status: Willing and Cooperative to Participate Persons Present: RN (personal development educator, rehab aide) Home Living Type of Home: House Home Layout: Performs ADL'S on One Level (2 steps to enter) Bathroom Shower / Tub: Tub/Shower Unit Prior Function Level Of [place]: Independent with ADLs and functional transfers Lives With: Spouse;Family (2 adult daughters and their SO) ADL's Where Assessed: Chair;Supine, Bed (cardiac chair) Eating Assist: Independent Eating Deficits: Beverage Management Toileting Assist: Total Assist Toileting Deficits: Perineal Hygiene (melchor, incontinent of BM) Functional Transfer Assist: Total Assist Functional Transfer Deficits: (chair transfer; lateral transfer) Comment: Pt supine upon OT arrival. Pt transferred from bed>chair via lateral transfer, hovermat placed under patient to reduce shearing. Pt able to roll to R with moderate assist for placement of hovermat. Assist x2 for lateral transfer and positioning in cardiac chair. Pt tolerated sitting upright in cardiac chair for 15 minutes (roho cushion utilized). Pt able to use BUE to reach for items off bedside table and complete beverage management. Pt c/o pain and incontinent of bowel movement. Pt assisted in lateral transfer with assist x3 back to bed. Pt supine at OT departure with staff electronic warfare officer at bedside. Activity Tolerance Endurance: 2/5 Tolerates 10-20 Minutes Exercise w/Multiple Rests Cognition Overall Cognitive Status: WFL to Adequately Complete Self Care Tasks Safely Attention: Somnolent Education Persons Educated: Patient Barriers To Learning: Pain Interventions: Repetition of Instructions Teaching Methods: Verbal Instruction;Demonstration;Provided Printed Instructions Patient Response: Verbalized and Demo Understanding Topics: Role of OT, Goals for Therapy;UE Exercises Home Exercise Program: UE Home Exer Program Goal Formulation: With Patient Comments: Pt educated on BUE AROM exercises. Assessment Assessment: Decreased ADL Status;Decreased Endurance;Decreased Self-Care Trans; Decreased High-Level ADLs Prognosis: Fair;w/Cont OT s/p Acute Discharge AM-PAC 6 Clicks Daily Activity Inpatient Putting on and taking off regular lower body clothes?: Total Bathing (Including washing, rinsing, drying): A Lot Toileting, which includes using toilet, bedpan, or urinal: Total Putting on and taking off regular upper body clothing: A Lot Taking care of personal grooming such as brushing teeth: A Little Eating meals?: A Little Daily Activity Raw Score: 12 Standardized (t-scale) score: 30.6 CMS 0-100% Score: 66.57 CMS G Code Modifier: CL Plan Treatment Interventions: ADL Retraining;Functional Transfer Training;Endurance Training;Patient/Family Training;UE Strengthing/ROM OT Frequency: 5x/week Plan for next visit: progress upright activity tolerance, edge of bed/chair level functional activity; UE exercises ADL Goals Patient Will Perform Grooming: at Edge of Bed;w/ Stand By Assist;Met Patient Will Perform Toileting: w/ Moderate Assist;w/ Bedside Commode Functional Transfer Goals Pt Will Transfer To Bedside Commode: w/ Moderate Assist Pt Will Transfer To Toilet: w/ Minimum Assist OT Discharge Recommendations OT Discharge Recommendations: Inpatient Setting Equipment Recommendations: BSC Recommend ongoing assistance for: Transfers, Bed mobility, Dressing, Bathing, Toileting Therapist: Lexus Shirley, LELANDR/[place] 1776 Date: 12/24/2017 * Joseph Acosta RN - 12/24/2017 11:09 AM CDT During review of patient's chart, blood culture drawn 5 returns positive. PICC protocol dictates we wait a minimum of 24 hours from clean blood culture report. Primary RN informed, she reports she will communicate directly with primary team. Also informed RN we are happy to be consulted for lab draws if this is an ongoing issue. Will remove current PICC order and await further consult. * Adrienne Zarate MD - 12/24/2017 8:57 AM CDT Formatting of this note may be different from the original. Subjective: No acute events overnight. Pain well controlled today. Tolerating diet without n/v though appetite still poor. Would like to try more protein shakes. Tearful this morning about situation. Objective: Blood pressure 91/55, pulse 83, temperature 36.4 C (97.5 F), height 162.6 cm (64"), weight 92.5 kg (203 lb 14.8 oz), SpO2 96 %. General: AAOx3, NAD Cardiac: RRR Respirations: Unlabored Extremities: LLE hemipelvectomy, dressings with moderate mostly serous drainage , blistering and small areas of partial necrosis about portions of the incision Post-op Drains: (24 hours) MANNY: 620 ml which is serous in nature No results for input(s): PTT, INR in the last 72 hours. 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 zosyn) -Melchor catheter x4 wks minimum -Maintain dressings, ortho to manage- reinforce as needed -Maintain MANNY drain to bulb suction -Orals for pain control, gabapentin -Resume xarelto for DVT -Please do not leave flat for extended periods of time, would like patient to lay onto her right side as much as possible for swelling management of L hemipelvectomy -Acute blood loss anemia- Hgb 7.4, will transfuse one unit today -Rehab consult- appreciate recs -Psych, HUMAN RESOURCES RECEPTIONIST psych and psychology consults for coping, depression- appreciate assistance -IM consult for hyponatremia- appreciate recs -ID consult for persistent leukocytosis and fevers- Vanc/zosyn, appreciate recs -Nutrition following for optimization -Calorie count today -PICC line ordered Dispo: continue inpatient care Adrienne Zarate MD Pager [phone] * Nani Lynch, - 12/24/2017 7:44 AM CDT Formatting of this note may be different from the original. Infectious Diseases Progress Note Today's Date: 12/24/2017 Admission Date: 12/13/2017 Reason for this consultation: Consult Type: Co-Management w/Signed Orders Reason for consult S/p hemipelvectomy 12/14 for chondrosarcoma, inreasing leukocytosis w/out clear source Assessment: # Sepsis, secondary to below # Positive Blood culture: GPC - source not clear, possible lung or wound - fever and leukocytosis from 12/20/17 - 12/21 L lower lobe infiltrate - presumptive aspiration pna vs. Hospital- acquired pneumonia - 12/20 C.diff negative - 12/23 Bc 09/21 set GPC: pending # Candiduria - 12/21/17 UA: wbc 2-10, negative nitrite, 1+ luukocytes, Culture > 100,000 Aracely sp # s/p hemipelvectomy for Chondrosarcoma - 11/25/17 [...] and repair of urethral injury, Vaginal closure. # DVT - 11/30/17 IVC filter for DVT within the external iliac vein # Obese # HTN # DM # Hypothyroidism # Depression # Generalized pain # abx allergy - allergic history to Cephalexin 'years ago' with skin rash and hot flash - tolerated Penicillin when she had dental caries Recommendations: - Continue iv Piperacillin/tazobactam 4.5g q6h + vancomycin depending on FU BCs ; goal trough 12-15 - Continuet Fluconazole 200mg daily for 7 days for Candiduria (12/22/17-12/28/17) as per urology cannot change out melchor cath yet given recent bladder repair - Follow up blood culture results on 12/23 and today - Monitor temp and WBC count - Watch for antimicrobials toxicity and side effects. Seen and discussed with Dr. Lynch We'll follow I have seen, personally evaluated, and discussed the patient's care with Dr. Nelson, Infectious Diseases Fellow. I agree with the subjective notations, objective findings and agree with the plan of care as documented in this note with the exceptions noted. Nani Lynch, DO Division of Infectious Diseases Pager [phone] Dr. Isabel will round again on the patient on Wednesday. Please feel free to call the ID fellow clinical practice consultant at pager [phone] if there are any new issues or concerns over the weekend. Interval History Afebrile today. Denies chills, sweating Depressed mood ? Though much less drowsy today No headache No SOB. No cough, sputum. Not complained nausea and abdominal bloating today. No vomiting. Melchor and fecal device in place Still having multiple loose stools Wbc 16.9 <- 20.8 <- 22.2 HGB 7.3 <- 8.3 Creatinine 0.57 12/20 C.diff negative 12/23 C.diff : Repeat testing not indicated on specimen negative by PCR within 7 days 12/21 Ucx: Aracely sp 12/23 Blood culture / sets GPC, resembling Streptococci 12/24 Blood culture collected Sputum culture not collected due to no cough/sputum Antimicrobial Start date End date Erythromycin 12/13 Neomycin 12/13 12/13 Polymyxin B 12/14 12/14 Gentamycin 12/14 12/15 Clindamycin 12/14 12/22 Pip/regan 12/22 active Fluconazole 12/22 active Vancomycin 12/23 active Estimated Creatinine Clearance: 103.6 mL/min (based on SCr of 0.57 mg/dL). Medications Scheduled Meds: acetaminophen (TYLENOL) tablet 1,000 mg 1,000 mg Oral Q6H* buPROPion (WELLBUTRIN) tablet 100 mg 100 mg Oral TID fluconazole (DIFLUCAN) tablet 200 mg 200 mg Oral QDAY gabapentin (NEURONTIN) capsule 800-1,200 mg 800-1,200 mg Oral TID insulin aspart U-100 (NOVOLOG FLEXPEN) injection PEN 0-14 Units 0-14 Units Subcutaneous 5 X Day levothyroxine (SYNTHROID) tablet 175 mcg 175 mcg Oral QDAY before breakfast metFORMIN (GLUCOPHAGE) tablet 500 mg 500 mg Oral BID w/meals pantoprazole DR (PROTONIX) tablet 40 mg 40 mg Oral QDAY(21) piperacillin/tazobactam (ZOSYN) 4.5 g/100 mL iso-osmotic IVPB 4.5 g Intravenous Q6H* rivaroxaban (XARELTO) tablet 20 mg 20 mg Oral QDAY w/breakfast vancomycin (VANCOCIN) 1,250 mg in dextrose 5% (D5W) IVPB 1,250 mg Intravenous Q12H* vancomycin, pharmacy to manage 1 each Service Per Pharmacy Continuous Infusions: PRN and Respiratory Meds:alum/mag hydroxide/simeth Q6H PRN, busPIRone BID PRN, calcium carbonate Q4H PRN, diazePAM Q6H PRN, diphenhydrAMINE Q6H PRN OR [ DISCONTINUED] diphenhydrAMINE Q6H PRN, fentaNYL citrate PF Q1H PRN, hyoscyamine Q4H PRN, ondansetron (ZOFRAN) IV Q6H PRN, oxyCODONE Q3H PRN Physical Examination Vital Signs: Last Vital Signs: 24 Hour Range BP: 91/55 (12/24 557) Temp: 36.4 C (97.5 F) (12/24 557) Pulse: 83 (12/24 557) Respirations: 18 PER MINUTE (12/24 557) SpO2: 96 % (12/24 557) O2 Delivery: Nasal Cannula (12/24 557) BP: (91-138)/(55-75) Temp: [36.4 C (97.5 F)-38.9 C (102 F)] Pulse: [83-111] Respirations: [17 PER MINUTE-18 PER MINUTE] SpO2: [94 %-100 %] O2 Delivery: Nasal Cannula General appearance: obese, alert, oriented, NAD, depressed mood HENT: mucus membranes moist, no oral lesions/thrush Eyes: PERRL, Sl L ptosis was noted yesterday seemed improved today. CN II-XII grossly intact Lungs: no wheezing, rhonchi, rales appreciated - gen diminished basilar bs Heart: Regular rhythm, reg rate, with no murmur, rub, gallop Abdomen: obese, normal garcia sounds, soft, non-tender, non distended Ext: No right leg edema, no calf tenderness, no joint swelling, s/p left hemipelvectomy Skin: under main pannus ecchymoses + erythema with L sided superficial ulceration, no drainage. Extensive dressings s/p left hemipelvectomy - drainage mostly from posterior; some at distal stump ; still swelling and slight erythema. Lines: Carlos Manuel torres drain Indwelling catheter Peripheral iv Fecal device Lab Review Hematology Recent Labs 12/22/1741212/23/1772812/24/17 0434 WBC 22.2* 20.8* 16.9* HGB 8.5* 8.3* 7.3* HCT 24.1* 24.7* 21.3* PLTCT 349 336 294 Chemistry Recent Labs 12/22/1741212/23/1772812/24/17 0434 NA 127* 127* 126* K 4.2 4.2 3.9 CL 93* 94* 92* CO2 26 27 27 BUN 9 9 9 CR 0.60 0.72 0.57 GFR >60 >60 >60 GLU 142* 193* 168* CA 7.8* 7.8* 7.5* ALBUMIN 1.9* | 2.0* -- -- ALKPHOS 104 -- -- AST 22 -- -- ALT 19 -- -- TOTBILI 0.4 -- -- Microbiology, Radiology and other Diagnostics Review Microbiology data reviewed. Pertinent radiology images viewed. - CXR 12/24/17 Improvement in left basilar atelectasis without acute cardiopulmonary abnormality. Dominique Nelson MD Pager [phone] Infectious Diseases Fellow * Mauro Xiong - 12/24/2017 12:22 AM CDT Clot was stripped from MANNY drain tubing, emptied 440 ml of serosanguineous fluid. Dr. Capellan notified of increased drainage and swelling, no new orders. Will continue to monitor. * Luis Sargent MD - 12/23/2017 4:11 PM CDT Formatting of this note may be different from the original. General Progress Note Name: Beata Kaiser Today's Date: 12/23/2017 Admission Date: 12/13/2017 LOS: 10 days Assessment/Plan: Principal Problem: Pelvic mass Active Problems: Pelvic mass in female Metabolic acidosis Acute blood loss as cause of postoperative anemia Depression Anxiety DM (diabetes mellitus) (HCC) Hypothyroidism Hemorrhagic shock (HCC) Beata Kaiser is a 52 y.o. female Hx of hypothyroidism and non-insulin dependent diabetes mellitus who presented to [facility] on 12/13/17 for scheduled left hemipelvectomy for chondrosarcoma. Pt underwent open biopsy of left pelvis previously on 11/29. 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 An IVC filter was placed recently Plan : -- change Buspar to PRN -very sleepy -done ---consider decreasing gabapentin dose as the patient is lethargic -defer to ortho -- consider decrease oxycodone to 5 mg q 4h -- consider calori count and alternative nutrition like tube feeding through [facility] -nurse estimated less than 500 clori daily -- agree with checking C diff , vancomycin was added to zosyn And diflucan per ID -- repeat urine sodium /osmolality done Thank you for the consult. Note: All patient care calls should be directed first to the primary service. If the primary service needs further assistance, the service should page [phone] (24 hours a day/7 days a week) to discuss the case. Subjective Beata Kaiser is a 52 y.o. female. Patient is lethargic ,not eating except few bites of egg , she had 6 episodes of diarrhea , no abdominal pian today She continued to have copious amount of discharge , serosanguinous . She had a fever today Review of Systems - Loss of appetite , pain with wound changes and turning in bed , no nausea or vomiting . Medications Scheduled Meds: acetaminophen (TYLENOL) tablet 1,000 mg 1,000 mg Oral Q6H* buPROPion (WELLBUTRIN) tablet 100 mg 100 mg Oral TID busPIRone (BUSPAR) tablet 30 mg 30 mg Oral BID fluconazole (DIFLUCAN) tablet 200 mg 200 mg Oral QDAY gabapentin (NEURONTIN) capsule 800-1,200 mg 800-1,200 mg Oral TID insulin aspart U-100 (NOVOLOG FLEXPEN) injection PEN 0-14 Units 0-14 Units Subcutaneous 5 X Day levothyroxine (SYNTHROID) tablet 175 mcg 175 mcg Oral QDAY before breakfast metFORMIN (GLUCOPHAGE) tablet 500 mg 500 mg Oral BID w/meals pantoprazole DR (PROTONIX) tablet 40 mg 40 mg Oral QDAY(21) piperacillin/tazobactam (ZOSYN) 4.5 g/100 mL iso-osmotic IVPB 4.5 g Intravenous Q6H* rivaroxaban (XARELTO) tablet 20 mg 20 mg Oral QDAY w/breakfast [START ON 12/24/2017] vancomycin (VANCOCIN) 1,250 mg in dextrose 5% (D5W) IVPB 1, 250 mg Intravenous Q12H* vancomycin (VANCOCIN) 1,500 mg in dextrose 5% (D5W) IVPB 15 mg/kg Intravenous ONCE And vancomycin, pharmacy to manage 1 each Service Per Pharmacy Continuous Infusions: PRN and Respiratory Meds:alum/mag hydroxide/simeth Q6H PRN, calcium carbonate Q4H PRN, diazePAM Q6H PRN, diphenhydrAMINE Q6H PRN OR [DISCONTINUED] diphenhydrAMINE Q6H PRN, fentaNYL citrate PF Q1H PRN, hyoscyamine Q4H PRN, ondansetron (ZOFRAN) IV Q6H PRN, oxyCODONE Q3H PRN Objective: Vital Signs: Last Filed Vital Signs: 24 Hour Range BP: 103/60 (12/23 1409) Temp: 36.5 C (97.7 F) (12/23 1409) Pulse: 97 (12/23 1409) Respirations: 18 PER MINUTE (12/23 1409) SpO2: 98 % (12/23 1409) O2 Delivery: None (Room Air) (12/23 1409) BP: (89-103)/(49-64) Temp: [36.4 C (97.6 F)-38.9 C (102 F)] Pulse: [97-119] Respirations: [16 PER MINUTE-18 PER MINUTE] SpO2: [93 %-98 %] O2 Delivery: None (Room Air) Intensity Pain Scale 0-10 (Pain 1): 5 (12/23/17 0940) Vitals: 12/13/17 1115 12/17/17 1600 12/18/17 0600 Weight: 104.8 kg (231 lb 0.7 oz) 94.6 kg (208 lb 8.9 oz) 92.5 kg (203 lb 14.8 oz ) Intake/Output Summary: (Last 24 hours) Intake/Output Summary (Last 24 hours) at 12/23/17 1611 Last data filed at 12/23/17 1035 Gross per 24 hour Intake 1050 ml Output 2814 ml Net -1764 ml Stool Occurrence: 1 Physical Exam Gen sleepy oriented, cooperative , ill appearing Head: Normocephalic, without obvious abnormality, atraumatic Eyes: conjunctivae/corneas clear. PERRL, EOM's intact, Throat: Lips, mucosa, and tongue normal. Teeth and gums normal Neck: supple, symmetrical, trachea midline, no adenopathy, no JVD, no bruits, Back: symmetric, no curvature. ROM normal. No CVA tenderness. Lungs: clear to auscultation bilaterally, no wheezes, rales, rhonchi Heart: regular rate and rhythm, S1, S2 normal, no murmur, click, rub or gallop Abdomen: soft, tender. Bowel sounds normal. No masses, no organomegaly, non- distended flap in left lower abdomen melchor in place Extremities: LLE hemipelvectomy, dressings c/d/i drain in place , flap in left lower abdomen , edema plus 3 at surgery site , plus 1 RLE Lab Review 24-hour labs: Results for orders placed or performed during the hospital encounter of (from the past 24 hour(s)) POC GLUCOSE Collection Time: 12/22/17 5:50 PM Result Value Ref Range Glucose, POC 376 (H) 70 - 100 MG/DL POC GLUCOSE Collection Time: 12/22/17 9:17 PM Result Value Ref Range Glucose, POC 303 (H) 70 - 100 MG/DL CBC Collection Time: 12/23/17 7:29 AM Result Value Ref Range White Blood Cells 20.8 (H) 4.5 - 11.0 K/UL RBC 2.80 (L) 4.0 - 5.0 M/UL Hemoglobin 8.3 (L) 12.0 - 15.0 GM/DL Hematocrit 24.7 (L) 36 - 45 % MCV 88.2 80 - 100 FL MCH 29.5 26 - 34 PG MCHC 33.4 32.0 - 36.0 G/DL RDW 14.8 11 - 15 % Platelet Count 336 150 - 400 K/UL MPV 7.2 7 - 11 FL BASIC METABOLIC PANEL Collection Time: 12/23/17 7:29 AM Result Value Ref Range Sodium 127 (L) 137 - 147 MMOL/L Potassium 4.2 3.5 - 5.1 MMOL/L Chloride 94 (L) 98 - 110 MMOL/L CO2 27 21 - 30 MMOL/L Anion Gap 6 3 - 12 Glucose 193 (H) 70 - 100 MG/DL Blood Urea Nitrogen 9 7 - 25 MG/DL Creatinine 0.72 0.4 - 1.00 MG/DL Calcium 7.8 (L) 8.5 - 10.6 MG/DL eGFR Non >60 >60 mL/min eGFR >60 >60 mL/min POC GLUCOSE Collection Time: 12/23/17 9:35 AM Result Value Ref Range Glucose, POC 165 (H) 70 - 100 MG/DL POC GLUCOSE Collection Time: 12/23/17 11:00 AM Result Value Ref Range Glucose, POC 174 (H) 70 - 100 MG/DL LACTIC ACID (BG - RAPID LACTATE) Collection Time: 12/23/17 1:42 PM Result Value Ref Range Lactic Acid,BG 1.9 0.5 - 2.0 MMOL/L Point of Care Testing (Last 24 hours) Glucose: (!) 193 (12/23/17 0729) POC Glucose (Download): (!) 174 (12/23/17 1100) Radiology and other Diagnostics Review: Pertinent radiology reviewed. Luis Sargent MD Pager [phone] * Kaylie Johnson - 12/23/2017 3:24 PM CDT Formatting of this note may be different from the original. Pharmacy Vancomycin Note Subjective: Beata Kaiser is a 52 y.o. female being treated for new onset fever, suspected HAP. Objective: Current Vancomycin Orders Medication Dose Route Frequency [START ON 12/24/2017] vancomycin (VANCOCIN) 1,250 mg in dextrose 5% (D5W) IVPB 1,250 mg Intravenous Q12H* vancomycin (VANCOCIN) 1,500 mg in dextrose 5% (D5W) IVPB 15 mg/kg Intravenous ONCE And vancomycin, pharmacy to manage 1 each Service Per Pharmacy Day of Vancomycin therapy: 1 Additional Abx: Zosyn, fluconazole Cultures: White Blood Cells Date/Time Value Ref Range Status 12/23/2017 0729 20.8 (H) 4.5 - 11.0 K/UL Final 12/22/2017 0413 22.2 (H) 4.5 - 11.0 K/UL Final 12/21/2017 0438 20.1 (H) 4.5 - 11.0 K/UL Final Creatinine Date/Time Value Ref Range Status 12/23/2017 0729 0.72 0.4 - 1.00 MG/DL Final 12/22/2017 0413 0.60 0.4 - 1.00 MG/DL Final 12/21/2017 1133 0.82 0.4 - 1.00 MG/DL Final Blood Urea Nitrogen Date/Time Value Ref Range Status 12/23/2017 0729 9 7 - 25 MG/DL Final Estimated CrCl: ~100 mL/min Intake/Output Summary (Last 24 hours) at 12/23/17 1524 Last data filed at 12/23/17 1035 Gross per 24 hour Intake 1250 ml Output 2814 ml Net -1564 ml UOP: Actual Weight: 92.5 kg (203 lb 14.8 oz) Dosing BW: 93 kg Assessment: Target levels for this patient: Trough 12-15. Plan: 1. Starting with 1500 mg x 1 then 1250 mg Q12H, (~13 mg/kg), recent hemipelvectomy so calculated CrCl may be skewed 2. Next scheduled level(s): Prior to the 4th dose 3. Pharmacy will continue to monitor and adjust therapy as needed. Kaylie Johnson [facility] 12/23/2017 * Nani Lynch DO - 12/23/2017 2:02 PM CDT Formatting of this note may be different from the original. Infectious Diseases Progress Note Today's Date: 12/23/2017 Admission Date: 12/13/2017 Reason for this consultation: Consult Type: Co-Management w/Signed Orders Reason for consult S/p hemipelvectomy 12/14 for chondrosarcoma, inreasing leukocytosis w/out clear source Assessment: # Fever, leukocytosis - fever and leukocytosis from 12/20/17 - 12/21 L lower lobe infiltrate - presumptive aspiration pna vs. Hospital- acquired pneumonia - 12/20/17 C.diff negative - 12/23 am bc P # Candiduria - 12/21/17 UA: wbc 2-10, negative nitrite, 1+ luukocytes, Culture > 100,000 Aracely sp # s/p hemipelvectomy for Chondrosarcoma - 11/25/17 [...] and repair of urethral injury, Vaginal closure. # DVT - 11/30/17 IVC filter for DVT within the external iliac vein # Obese # HTN # DM # Hypothyroidism # Depression # Generalized pain # abx allergy - allergic history to Cephalexin 'years ago' with skin rash and hot flash - tolerated Penicillin when she had dental caries Recommendations: - Continue iv Piperacillin/tazobactam 4.5g q6h for possible hospital acquired pneumonia. - Continuet Fluconazole 200mg daily for 7 days for Candiduria (12/22/17-12/28/17) as per urology cannot change out melchor cath yet given recent bladder repair - Added BC this am x 2, follow up culture results, vanc P cult results - Diarrhea improved but then recurred today -recheck cdiff given rising wbc - Monitor temp and WBC count - Watch for antimicrobials toxicity and side effects. Seen and discussed with Dr. Lynch We'll follow I have seen, personally evaluated, and discussed the patient's care with Dr. Nelson, Infectious Diseases Fellow. I agree with the subjective notations, objective findings and agree with the plan of care as documented in this note with the exceptions noted. Complexity of medical decision making is high due to the multi-system nature of the infectious disease process or potential for limb- threatening infection as well as concerns including but not limited to complexity of the patient's underlying illnesses, the identification and sensitivities of the organisms being treated, the potential for antimicrobial toxicities which are being monitored by complete blood counts and chemistry analysis between visits and the potential for drug-drug interactions, as well as concerns regarding immunologic function, and interplay of other issues. Nnai Lynch DO Division of Infectious Diseases Pager [phone] Interval History Fever up to 38.9 No chills, sweating More drowsy this am and not clear of date but when stimulated, light on otherwise able to answer all qs approp No headache No SOB. No cough nor sputum today. Occasionally nausea, abdominal bloating. No vomiting. Melchor and fecal device in place Wbc 20.8 <- 22.2 Creatinine 0.82 AST/ALT Sputum culture not collected due to no cough/sputum 12/20 C.diff negative 12/21 Ucx: Aracely sp 12/23 Blood culture Antimicrobial Start date End date Erythromycin 12/13 Neomycin 12/13 12/13 Polymyxin B 12/14 12/14 Gentamycin 12/14 12/15 Clindamycin 12/14 12/22 Pip/regan 12/22 active Fluconazole 12/22 active Estimated Creatinine Clearance: 100.7 mL/min (based on SCr of 0.72 mg/dL). Medications Scheduled Meds: acetaminophen (TYLENOL) tablet 1,000 mg 1,000 mg Oral Q6H* buPROPion (WELLBUTRIN) tablet 100 mg 100 mg Oral TID busPIRone (BUSPAR) tablet 30 mg 30 mg Oral BID fluconazole (DIFLUCAN) tablet 200 mg 200 mg Oral QDAY gabapentin (NEURONTIN) capsule 800-1,200 mg 800-1,200 mg Oral TID insulin aspart U-100 (NOVOLOG FLEXPEN) injection PEN 0-14 Units 0-14 Units Subcutaneous 5 X Day levothyroxine (SYNTHROID) tablet 175 mcg 175 mcg Oral QDAY before breakfast metFORMIN (GLUCOPHAGE) tablet 500 mg 500 mg Oral BID w/meals pantoprazole DR (PROTONIX) tablet 40 mg 40 mg Oral QDAY(21) piperacillin/tazobactam (ZOSYN) 4.5 g/100 mL iso-osmotic IVPB 4.5 g Intravenous Q6H* rivaroxaban (XARELTO) tablet 20 mg 20 mg Oral QDAY w/breakfast vancomycin (VANCOCIN) 1,500 mg in dextrose 5% (D5W) IVPB 15 mg/kg Intravenous Q12H* And vancomycin, pharmacy to manage 1 each Service Per Pharmacy Continuous Infusions: PRN and Respiratory Meds:alum/mag hydroxide/simeth Q6H PRN, calcium carbonate Q4H PRN, diazePAM Q6H PRN, diphenhydrAMINE Q6H PRN OR [DISCONTINUED] diphenhydrAMINE Q6H PRN, fentaNYL citrate PF Q1H PRN, hyoscyamine Q4H PRN, ondansetron (ZOFRAN) IV Q6H PRN, oxyCODONE Q3H PRN Physical Examination Vital Signs: Last Vital Signs: 24 Hour Range BP: 95/64 (12/23 1018) Temp: 38.9 C (102 F) (12/23 1018) Pulse: 111 (12/23 1018) Respirations: 18 PER MINUTE (12/23 1018) SpO2: 94 % (12/23 1018) O2 Delivery: None (Room Air) (12/23 1018) BP: (89-100)/(49-64) Temp: [36.4 C (97.6 F)-38.9 C (102 F)] Pulse: [102-119] Respirations: [16 PER MINUTE-18 PER MINUTE] SpO2: [93 %-96 %] O2 Delivery: None (Room Air) General appearance: obese, alert, oriented, NAD HENT: mucus membranes moist, no oral lesions/thrush Eyes: PERRL, Sl L ptosis this am was noted but this was better when she was more awake and CN II-XII grossly intact Lungs: no wheezing, rhonchi, rales appreciated - gen diminished basilar bs Heart: Regular rhythm, reg rate, with no murmur, rub, gallop Abdomen: obese, normal garcia sounds, soft, non-tender, non distended Ext: No right leg edema, no calf tenderness, no joint swelling, s/p left hemipelvectomy Skin: under main pannus ecchymoses + erythema with L sided superficial ulceration Extensive dressings s/p left hemipelvectomy - drainage mostly from posterior; some at distal stump ; medial stump incision viewed w/change of part of dressing due to stool contamination (staple line looked good) Lines: Carlos Manuel torres drain Indwelling catheter Peripheral iv Fecal device Lab Review Hematology Recent Labs 12/21/17 0438 12/22/17 0413 12/23/17 0729 WBC 20.1* 22.2* 20.8* HGB 9.3* 8.5* 8.3* HCT 26.8* 24.1* 24.7* PLTCT 356 349 336 Chemistry Recent Labs 12/21/17 1133 12/22/17 0413 12/23/17 0729 NA 123* 127* 127* K 4.5 4.2 4.2 CL 89* 93* 94* CO2 26 26 27 BUN 11 9 9 CR 0.82 0.60 0.72 GFR >60 >60 >60 GLU 245* 142* 193* CA 7.7* 7.8* 7.8* ALBUMIN -- 1.9* | 2.0* -- ALKPHOS -- 104 -- AST -- 22 -- ALT -- 19 -- TOTBILI -- 0.4 -- Microbiology, Radiology and other Diagnostics Review Microbiology data reviewed. Pertinent radiology images viewed. - CXR 12/21/17 Increased opacity in left lung base, compatible with atelectasis and/or pneumonia. 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 Precautions: Falls;Isolation L LE Precautions: LLE Non-Weight Bearing Pain / Complaints: Patient premedicated Pain Location: Left;Hip Pain Level Current: 5 Objective Psychosocial Status: Willing and Cooperative to Participate Persons Present: RN (tech, Ortho resident) Home Living Type of Home: House Home Layout: Performs ADL'S on One Level (2 steps to enter) Bathroom Shower / Tub: Tub/Shower Unit Prior Function Level Of [place]: Independent with ADLs and functional transfers Lives With: Spouse;Family (2 adult daughters and their SO) ADL's Where Assessed: Edge of Bed Eating Assist: Independent Grooming Assist: Minimal Assist Grooming Deficits: Brushing Hair;Steadying;Setup LE Dressing Assist: Total Assist LE Dressing Deficits: Don/Doff R Sock Toileting Assist: Total Assist (melchor and incont of loose BM) Functional Transfer Assist: Moderate Assist (x's of 1 to EOB with use of trapeze and min assist of 1) Functional Transfer Deficits: (sit to stand with RW with R knee blocked) Comment: Sit to stand varied with fatiuge for each attempt, varied from mod assist x's 2 to max assist x's 2. Pt sat on EOB for extended time due to dressing changes and loose BM. Activity Tolerance Sitting Balance: 2+/5 Supports Self w/ 1 UE Cognition Overall Cognitive Status: WFL to Adequately Complete Self Care Tasks Safely Cognition Comment: Pt reports feeling more confused this day. UE Strength / Tone Overall Strength / Tone: Right;Left;4/5 Education Persons Educated: Patient/Family Barriers To Learning: Family Not Present Interventions: Repetition of Instructions Teaching Methods: Verbal Instruction;Demonstration Patient Response: Verbalized and Demo Understanding Topics: Role of OT, Goals for Therapy;ADL Compensatory Techniques Goal Formulation: With Patient Assessment Assessment: Decreased Self-Care Trans;Decreased ADL Status;Decreased Endurance Prognosis: Fair;w/Cont OT s/p Acute Discharge Plan Treatment Interventions: ADL Retraining;Functional Transfer Training;Equipment Evaluation/Education;UE Strengthing/ROM ADL Goals Patient Will Perform Grooming: at Edge of Bed;w/ Stand By Assist;Met Patient Will Perform Toileting: w/ Moderate Assist;w/ Bedside Commode Functional Transfer Goals Pt Will Transfer To Bedside Commode: w/ Moderate Assist Pt Will Transfer To Toilet: w/ Minimum Assist OT Discharge Recommendations OT Discharge Recommendations: Inpatient Setting Equipment Recommendations: [facility] [place] Additional Information: Next treatment: cardiac chair ordered with cushion. Will attempt more oob activity Therapist: HUYEN Schmidt Date: 12/23/2017 * Cassandra Villatoro - 12/23/2017 1:07 PM CDT PHYSICAL THERAPY NOTE Patient declined to participate despite encouragement and education about the role and benefits of physical therapy. Pt C/O fatigue and requesting to rest. Physical therapy will continue to follow and provide intervention as indicated. Therapist: Cassandra Villatoro Date: 12/23/2017 * Kerline Kruger, RN - 12/23/2017 12:10 PM CDT Spoke with Dr. Zarate about possibly placing a felxi-seal due to the patient frequently having loose BM's and open kimberly wounds. Dr. Zarate stated that she would speak with Dr. Luther about adding. 1256- new order in place for flexi-seal 1430 - flexi-seal placed. Educated patient on the purpose and how it works. Patient able to tolerate procedure well. * Adrienne Zarate MD - 12/23/2017 11:28 AM CDT Formatting of this note may be different from the original. Subjective: Febrile overnight. Patient lethargic and sleeping when seen this am at 8. Returned at 1100 and patient much more alert, sitting up in bed and eating breakfast. Patient able to carry on a conversation and no current signs of facial droop. States her pain is well controlled. Continues to have loose stools and heartburn. No other new complaints this morning. Objective: Blood pressure 95/64, pulse 111, temperature (!) 38.9 C (102 F) , height 162.6 cm (64"), weight 92.5 kg (203 lb 14.8 oz), SpO2 94 %. General: AAOx3, NAD Cardiac: tachycardic Respirations: Unlabored Extremities: LLE hemipelvectomy, dressings with moderate mostly serous drainage , blistering about portions of the incision Post-op Drains: (24 hours) MANNY: 584 ml which is serous in nature No results for input(s): PTT, INR in the last 72 hours. 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 -Diabetic diet, will supplement with protein shakes -Clinda until drain comes out -Melchor catheter x4 wks minimum -Maintain dressings, ortho to manage- reinforce as needed -Maintain MANNY drain to bulb suction -Orals for pain control, gabapentin -Resume xarelto for DVT -Please do not leave flat for extended periods of time, would like patient to lay onto her right side as much as possible for swelling management of L hemipelvectomy -Acute blood loss anemia- Hgb 8.3, stable, will continue to monitor -Rehab consult- appreciate recs -Psych and HUMAN RESOURCES RECEPTIONIST psych consults for coping, depression- appreciate assistance -IM consult for hyponatremia- appreciate recs -ID consult for persistent leukocytosis and fevers- katrinasyn, appreciate recs -Nutrition following for optimization Dispo: continue inpatient care Adrienne Zarate MD Pager [phone] * Kerline Kruger RN - 12/23/2017 10:[address] Zarate notified about patients temperature of 38.9 C (102 F) and patients lethargy. Patient is unable to carry on conversation and barely able to answer questions before drifting off to sleep. Dr. Zarate stated that she would come to see the patient shortly. Nothing further at this time. * Ivette Wade APRN-HUMAN RESOURCES RECEPTIONIST - 12/23/2017 9:35 AM CDT Patient too tired to engage in conversation this morning. Will continue to try to find her and talk about her emotional recovery from her new body image. She is a very self reliant and resilient woman by history. Please use the sleep bundle to assure her at leat 4 hours of uninterrupted sleep. Ivette Wade [facility]- [phone] * Mauro Xiong - 12/22/2017 9:[address] Welch regarding excessive MANNY drain output and drainage from incision site, as well as multiple loose stools. Received verbal order to clamp MANNY drain for one hour. Will continue to monitor output. * Shilpi Camejo RN - 12/22/2017 6:02 PM CDT .I have reviewed the notes, assessment, and/or procedures performed by Denise Ortega RN and concur with her/his documentation unless otherwise noted. * Luis Sargent MD - 12/22/2017 5:47 PM CDT Formatting of this note may be different from the original. General Progress Note Name: Beata Kaiser Today's Date: 12/22/2017 Admission Date: 12/13/2017 LOS: 9 days Assessment/Plan: Principal Problem: Pelvic mass Active Problems: Pelvic mass in female Metabolic acidosis Acute blood loss as cause of postoperative anemia Depression Anxiety DM (diabetes mellitus) (HCC) Hypothyroidism Hemorrhagic shock (HCC) Beata Kaiser is a 52 y.o. female Hx of hypothyroidism and non-insulin dependent diabetes mellitus who presented to [facility] on 12/13/17 for scheduled left hemipelvectomy for chondrosarcoma. Pt underwent open biopsy of left pelvis previously on 11/29. 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 An IVC filter was placed recently Plan : -- consider alternative nutrition like tube feeding through [place] if appetite is not improving , malnutrition is contributing to hyponatremia --agree with ID consult -will treat aracely UTI and pneumonia - we can not remove melchor per urology -- start Protonix due to severe GERD -ordered- --aggressive bowel regimen . -- if no improvement of leukocytosis , may have to do CT abdomen -- restart metformin -done Thank you for the consult. Note: All patient care calls should be directed first to the primary service. If the primary service needs further assistance, the service should page [phone] (24 hours a day/7 days a week) to discuss the case. Subjective Beata Kaiser is a 52 y.o. female. Patient feels tired ,she complains of abdominal pain and constipation , complains of cough and sputum , afebrile during visit , last temp yesterday 38.2 1434 , poor appetite , no shortness of breath , . No chest pain complains of heart burn Medications Scheduled Meds: acetaminophen (TYLENOL) tablet 1,000 mg 1,000 mg Oral Q6H* buPROPion (WELLBUTRIN) tablet 100 mg 100 mg Oral TID busPIRone (BUSPAR) tablet 30 mg 30 mg Oral BID fluconazole (DIFLUCAN) tablet 200 mg 200 mg Oral QDAY gabapentin (NEURONTIN) capsule 800-1,200 mg 800-1,200 mg Oral TID insulin aspart U-100 (NOVOLOG FLEXPEN) injection PEN 0-14 Units 0-14 Units Subcutaneous 5 X Day levothyroxine (SYNTHROID) tablet 175 mcg 175 mcg Oral QDAY before breakfast piperacillin/tazobactam (ZOSYN) 4.5 g/100 mL iso-osmotic IVPB 4.5 g Intravenous Q6H* polyethylene glycol 3350 (MIRALAX) packet 17 g 1 packet Oral QDAY rivaroxaban (XARELTO) tablet 20 mg 20 mg Oral QDAY w/breakfast Continuous Infusions: PRN and Respiratory Meds:alum/mag hydroxide/simeth Q6H PRN, calcium carbonate Q4H PRN, diazePAM Q6H PRN, diphenhydrAMINE Q6H PRN OR [DISCONTINUED] diphenhydrAMINE Q6H PRN, fentaNYL citrate PF Q1H PRN, hyoscyamine Q4H PRN, ondansetron (ZOFRAN) IV Q6H PRN, oxyCODONE Q3H PRN Objective: Vital Signs: Last Filed Vital Signs: 24 Hour Range BP: 105/52 (12/22 1399) Temp: 37 C (98.6 F) (12/22 1399) Pulse: 105 (12/22 1399) Respirations: 18 PER MINUTE (12/22 1399) SpO2: 98 % (12/22 1399) O2 Delivery: None (Room Air) (12/22 1399) BP: (105-117)/(45-74) Temp: [36.9 C (98.4 F)-37.7 C (99.9 F)] Pulse: [101-117] Respirations: [16 PER MINUTE-18 PER MINUTE] SpO2: [93 %-98 %] O2 Delivery: None (Room Air) Intensity Pain Scale 0-10 (Pain 1): 2 (12/22/17 0919) Vitals: 12/13/17 1115 12/17/17 1600 12/18/17 0600 Weight: 104.8 kg (231 lb 0.7 oz) 94.6 kg (208 lb 8.9 oz) 92.5 kg (203 lb 14.8 oz ) Intake/Output Summary: (Last 24 hours) Intake/Output Summary (Last 24 hours) at 12/22/17 1747 Last data filed at 12/22/17 1600 Gross per 24 hour Intake 1400 ml Output 3962 ml Net -2562 ml Stool Occurrence: 1 Physical Exam Gen: alert and oriented, cooperative , looks diaphoretic Head: Normocephalic, without obvious abnormality, atraumatic Eyes: conjunctivae/corneas clear. PERRL, EOM's intact, Throat: Lips, mucosa, and tongue normal. Teeth and gums normal Neck: supple, symmetrical, trachea midline, no adenopathy, no JVD, no bruits, Back: symmetric, no curvature. ROM normal. No CVA tenderness. Lungs: clear to auscultation bilaterally, no wheezes, rales, rhonchi Heart: regular rate and rhythm, S1, S2 normal, no murmur, click, rub or gallop Abdomen: soft, tender. Bowel sounds normal. No masses, no organomegaly, non- distended flap in left lower abdomen melchor in place Extremities: LLE hemipelvectomy, dressings c/d/i drain in place , flap in left lower abdomen Lab Review 24-hour labs: Results for orders placed or performed during the hospital encounter of (from the past 24 hour(s)) POC GLUCOSE Collection Time: 12/21/17 8:38 PM Result Value Ref Range Glucose, POC 208 (H) 70 - 100 MG/DL CBC Collection Time: 12/22/17 4:13 AM Result Value Ref Range White Blood Cells 22.2 (H) 4.5 - 11.0 K/UL RBC 2.80 (L) 4.0 - 5.0 M/UL Hemoglobin 8.5 (L) 12.0 - 15.0 GM/DL Hematocrit 24.1 (L) 36 - 45 % MCV 86.0 80 - 100 FL MCH 30.3 26 - 34 PG MCHC 35.3 32.0 - 36.0 G/DL RDW 14.6 11 - 15 % Platelet Count 349 150 - 400 K/UL MPV 7.5 7 - 11 FL BASIC METABOLIC PANEL Collection Time: 12/22/17 4:13 AM Result Value Ref Range Sodium 127 (L) 137 - 147 MMOL/L Potassium 4.2 3.5 - 5.1 MMOL/L Chloride 93 (L) 98 - 110 MMOL/L CO2 26 21 - 30 MMOL/L Anion Gap 8 3 - 12 Glucose 142 (H) 70 - 100 MG/DL Blood Urea Nitrogen 9 7 - 25 MG/DL Creatinine 0.60 0.4 - 1.00 MG/DL Calcium 7.8 (L) 8.5 - 10.6 MG/DL eGFR Non >60 >60 mL/min eGFR >60 >60 mL/min ALBUMIN Collection Time: 12/22/17 4:13 AM Result Value Ref Range Albumin 2.0 (L) 3.5 - 5.0 G/DL LIVER FUNCTION PANEL Collection Time: 12/22/17 4:13 AM Result Value Ref Range Total Bilirubin 0.4 0.3 - 1.2 MG/DL Bilirubin, Direct <0.1 <0.4 MG/DL Albumin 1.9 (L) 3.5 - 5.0 G/DL Alk Phosphatase 104 25 - 110 U/L AST (SGOT) 22 7 - 40 U/L ALT (SGPT) 19 7 - 56 U/L Total Protein 4.8 (L) 6.0 - 8.0 G/DL POC GLUCOSE Collection Time: 12/22/17 9:41 AM Result Value Ref Range Glucose, POC 113 (H) 70 - 100 MG/DL PREALBUMIN Collection Time: 12/22/17 11:22 AM Result Value Ref Range Prealbumin 4.0 (L) 17 - 34 MG/DL POC GLUCOSE Collection Time: 12/22/17 12:39 PM Result Value Ref Range Glucose, POC 227 (H) 70 - 100 MG/DL Point of Care Testing (Last 24 hours) Glucose: (!) 142 (12/22/17 5538) POC Glucose (Download): (!) 227 (12/22/17 1239) Radiology and other Diagnostics Review: Pertinent radiology reviewed. Luis Sargent MD Pager [phone] * Kendrick Varma RN - 12/22/2017 4:58 PM CDT 1600 - Assumed care of patient. Patient assessed, findings in agreement with those documented by Denise Ortega, student nurse, at 0919 on 12/22/2017 unless otherwise documented at this time. * Kendrick Varma RN - 12/22/2017 4:50 PM CDT I spoke with Dr. Real with urology regarding order to exchange melchor catheter due to yeast in urine on 12/21/2017. Urology would prefer not to have melchor removed due to recent bladder surgery. I notified Dr. Lynch with infectious disease, who gave verbal order to maintain melchor, and will order antifungal. Will continue to monitor patient. 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 Pain: Patient complains of pain;2/10 (varies with activity ) Pain Location: Left;Hip Pain Interventions: Patient pre-medicated;Patient agrees to participate in therapy;Treatment altered to patient's pain tolerance L LE Precautions: LLE Non-Weight Bearing BED MOBILITY/TRANSFERS: Bed Mobility/Transfers Bed Mobility: Supine to Sit: Moderate Assist;x2 People;Assist with Trunk;Head of Bed Elevated;Requires Extra Time Bed Mobility: Sit to Supine: Moderate Assist;x2 People;Use of Overhead Trapeze; Assist with Trunk;Assist with R LE Transfer Type: Sit to/from Stand Transfer: Assistance Level: To/From;Bed;Maximal Assist;x3 People Transfer: Assistive Device: Roller Walker Transfers: Type Of Assistance: Elevated Bed;Knees(s) Blocked;Requires Extra Time End Of Activity Status: In Bed Comments: Patient achieves partial stand to allow for quick linen change, nursing present to assist with dressing change and hygiene. Patient assist with positioning in bed using trapeze. ACTIVITY/EXERCISE: Activity / Exercise Sit Edge Of Bed: 10 minutes Sit Edge Of Bed Assist: Stand By Assist;Minimal Assist;Variable Activity Limited By: Patient Choice;Complaint of Pain;Complaint of Fatigue; Weakness (Incontinent of stool with activity) EDUCATION: Education Persons Educated: Patient Patient Barriers To Learning: Pain;Anxiety Interventions: Repetition of Instructions Teaching Methods: Verbal Instruction Patient Response: Verbalized Understanding;More Instruction Required;Return Demonstration Topics: Mobility Progression;Importance of Increasing Activity;Recommend Continued Therapy;Therapy Schedule ASSESSMENT/PROGRESS: Assessment/Progress Impaired Mobility Due To: Pain;Post Surgical Precautions;Post Surgical Changes; Decreased Activity Tolerance Assessment/Progress: Should Improve w/ Continued PT AM-PAC 6 Clicks Basic Mobility Inpatient Turning from your back to your side while in a flat bed without using bed rails : Total Moving from lying on your back to sitting on the side of a flatbed without using bedrails : Total Moving to and from a bed to a chair (including a wheelchair): Total Standing up from a chair using your arms (e.g. wheelchair, or bedside chair): Total To walk in hospital room: Total Climbing 3-5 steps with a railing: Total Raw Score: 6 Standardized (T-scale) Score: 16.59 Basic Mobility CMS 0-100%: 100 CMS G Code Modifier for Basic Mobility: CN GOALS: Goals Goal Formulation: With Patient Time For Goal Achievement: 7 days Pt Will Go Supine To/From Sit: w/ Moderate Assist Pt Will Transfer Bed/Chair: w/ Moderate Assist Pt Will Transfer Sit to Stand: w/ Moderate Assist PLAN: Plan Treatment Interventions: Mobility Training;Strengthening Plan Frequency: 5-7 Days per Week -Increase upright activity- sitting endurance. Work on sit->stand transfers. RECOMMENDATIONS: PT Discharge Recommendations PT Discharge Recommendations: Inpatient Setting Therapist: Tanisha Acosta, PT Date: 12/22/2017 * Herminia Gant OTA - 12/22/2017 1:38 PM CDT OCCUPATIONAL THERAPY NO TREATMENT NOTE The patient was not seen due to: Pt declined oob for therapy at this time and requested to return later. PT scheduled for session this afternoon and will get pt oob. Attempted to see patient 1 time(s) Therapist: HUYEN Schmidt Date: 12/22/2017 * Emma See RD - 12/22/2017 1:09 PM CDT CLINICAL NUTRITION Clinical Nutrition Follow-Up Summary Nutrition Assessment of Patient: Malnutrition Assessment: Adequately nourished prior to admission Current Oral Intake: Improving Estimated Calorie Needs: 9440-1141 (27-30 kcal/kg desired wt of 55.3kg.) Estimated Protein Needs: 100 (1.8 g/kg desired wt of 55.3kg.) Oral Diet Order: Regular Beata Kaiser is a 52 y.o. 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 (Pt's weight is now down 28# or 12% s/p removal of her leg). Pt appears obese.. Pt reports decreased po intake, no GI concerns. She has somewhat of a flat affect. I was able to engaged her in education regarding her high protein needs. I also encouraged and provided her with a [place] high protein shake which she liked and was sipping on at time of my visit (cleared with RN first 2/2 pt is diabetic and on a dluid restriction). She reports she is familiar with diabetic diet and has no questions. RD to continue to follow to ensure adequate protein and po intake. Recommendation: Continue [id number] Consistent Carb Diet OR if bs's elevated, change to 1200- 1500 Consistent Carb with protein shake between meals. Intervention / Plan: Educated pt on 100grams protein/day, and provided pt with high protein shake ( CIB/milk,IC,2 protein powders). Will continue to monitor po intake and tolerance, as well as wt and labs. Nutrition Diagnosis: Increased nutrient needs, specify: (protein) Etiology: demand for healing. Signs & Symptoms: Pt s/p hemipelvectomy Inadequate oral intake Etiology: previous possilbe post-op ileus, now decreased appetite Signs & Symptoms: notes, pt report. Goals: Patient to consume >50% of meals Time Frame: Within 72 Hours Status: Partially met;new goal established Patient to consume >75% of meals/supplements Time Frame: Within 72 Hours Emma See, KAYA #[id number]. * Shilpi Camejo RN - 12/22/2017 12:39 PM CDT Pt has had several loose stools today. C diff screen negative as of 12/20. Spoke with Dr Zarate for possible imodium orders. Will hold off until ID sees her for rounds * Ivette Wade, [employer]-HUMAN RESOURCES RECEPTIONIST - 12/22/2017 10:05 AM CDT Patient was ordering breakfast when I entered her room. Feeling hot and flushed. Fan on. and patient and I discussed the adjustment to a new body image. He lost his index finger in the past and so he also understands that loss for his . Patient remains at her baseline which was to be quite strong in the face of change and adversity. Asked nurse today to implement the sleep bundle tonight to help her have better sleep. Ivette Wade [facility]- [phone] * Adrienne Zarate MD - 12/22/2017 9:55 AM CDT Formatting of this note may be different from the original. Subjective: No events overnight. Pain continues to be well controlled on current regimen. Tolerating diet without n/v. Worked well with PT yesterday. No new concerns or complaints. Objective: Blood pressure 110/66, pulse 101, temperature 36.9 C (98.4 F), height 162.6 cm (64"), weight 92.5 kg (203 lb 14.8 oz), SpO2 93 %. General: AAOx3, NAD Cardiac: tachycardic Respirations: Unlabored Extremities: LLE hemipelvectomy, dressings with mild serosanguinous drainage, blistering about portions of the incision Post-op Drains: (24 hours) MANNY: 168 ml No results for input(s): PTT, INR in the last 72 hours. 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 -Regular diet -Clinda until drain comes out -Melchor catheter x4 wks minimum -Maintain dressings, ortho to manage- reinforce as needed -Maintain MANNY drain -Orals for pain control, gabapentin -Resume xarelto for DVT -Please do not leave flat for extended periods of time, would like patient to lay onto her right side as much as possible for swelling management of L hemipelvectomy -Acute blood loss anemia- Hgb 8.5, will continue to monitor -Rehab consult- appreciate recs -HUMAN RESOURCES RECEPTIONIST psych consult for coping, depression- appreciate assistance -IM consult for hyponatremia- appreciate recs -Nutrition following for optimization Dispo: continue inpatient care Adrienne Zarate MD Pager [phone] * Ivette Wade APRN-HUMAN RESOURCES RECEPTIONIST - 12/21/2017 2:30 PM CDT Patient resting. Spoke with her father. Will return in AM. Ivette Wade [facility]- [phone] * Adrienne Zarate MD - 12/21/2017 1:41 PM CDT Formatting of this note may be different from the original. Subjective: No events overnight. Pain well controlled on current regimen. Tolerating diet without n/v. Having some loose stools. Objective: Blood pressure 110/65, pulse 112, temperature 37.1 C (98.7 F), height 162.6 cm (64"), weight 92.5 kg (203 lb 14.8 oz), SpO2 100 %. General: AAOx3, NAD Cardiac: tachycardic Respirations: Unlabored Extremities: LLE hemipelvectomy, dressings with mild serosanguinous drainage, blistering about portions of the incision Post-op Drains: (24 hours) MANNY: 275 ml No results for input(s): PTT, INR in the last 72 hours. 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 -Regular diet -Clinda until drain comes out -Melchor catheter x4 wks minimum -Maintain dressings, ortho to manage- reinforce as needed -Maintain MANNY drain -Orals for pain control, gabapentin -Resume xarelto for DVT -Please do not leave flat for extended periods of time, would like patient to lay onto her right side as much as possible for swelling management of L hemipelvectomy -Acute blood loss anemia- Hgb 9.3, stable, will continue to monitor -Rehab consult- appreciate recs -HUMAN RESOURCES RECEPTIONIST psych consult for coping, depression- appreciate assistance -IM consult for hyponatremia- appreciate recs Dispo: continue inpatient care Adrienne Zarate MD Pager [phone] * Herminia GantHUYEN - 12/21/2017 1:23 PM CDT OCCUPATIONAL THERAPY PROGRESS NOTE Mobility Progressive Mobility Level: Stand Level of Assistance: Assist X2 Assistive Device: Walker Time Tolerated: 11-30 minutes Activity Limited By: Pain Subjective Pertinent Dx per Physician: 52 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 9/10 with activity) Objective Psychosocial Status: Willing and Cooperative to Participate Persons Present: (tech, family member ) Home Living Type of Home: House Home Layout: Performs ADL'S on One Level (2 steps to enter) Bathroom Shower / Tub: Tub/Shower Unit Prior Function Level Of [place]: Independent with ADLs and functional transfers Lives With: Spouse;Family (2 adult daughters and their SO) ADL's Where Assessed: Edge of Bed Eating Assist: Independent LE Dressing Assist: Total Assist LE Dressing Deficits: Don/Doff R Sock Toileting Assist: Total Assist Functional Transfer Assist: Moderate Assist (x's 2 to EOB. Needing max to scoot hips towards EOB) Functional Transfer Deficits: (sit to stand with RW and R knee blocked, max Ax' s 2) Comment: Pt stood 2 times to initiate BSC transfers and chair. Unable to stand without max assist x's 2 with RW. pt returned to bed after session and placed on R side for edema control on L hip. RN notifed Activity Tolerance Sitting Balance: 2+/5 Supports Self w/ 1 UE Cognition Overall Cognitive Status: WFL to Adequately Complete Self Care Tasks Safely UE Strength / Tone Overall Strength / Tone: Right;Left;4/5 Education Persons Educated: Patient/Family Barriers To Learning: None Noted;Pain Interventions: Repetition of Instructions Teaching Methods: Verbal Instruction;Demonstration Patient Response: Verbalized and Demo Understanding Topics: Role of OT, Goals for Therapy;ADL Compensatory Techniques Goal Formulation: With Patient Assessment Assessment: Decreased ADL Status;Decreased Self-Care Trans Prognosis: Fair;w/Cont OT s/p Acute Discharge Plan Treatment Interventions: ADL Retraining;Functional Transfer Training;Equipment Evaluation/Education ADL Goals Patient Will Perform Grooming: at Edge of Bed, w/ Stand By Assist, Met Patient Will Perform Toileting: w/ Moderate Assist, w/ Bedside Commode Functional Transfer Goals Pt Will Transfer To Bedside Commode: w/ Moderate Assist Pt Will Transfer To Toilet: w/ Minimum Assist OT Discharge Recommendations OT Discharge Recommendations: Inpatient Setting Equipment Recommendations: BSC Additional Information: Next treatment: Continue to progress to BSC transfers. Therapist: HUYEN Schmidt Date: 12/21/2017 * Cassandra Villatoro - 12/21/2017 10:26 AM CDT PHYSICAL THERAPY PROGRESS NOTE MOBILITY: Mobility Progressive Mobility Level: Sit on edge of bed Level of Assistance: Assist X2 Assistive Device: Hand Held Time Tolerated: 11-30 minutes Activity Limited By: Pain;Fatigue;Weakness SUBJECTIVE: Subjective Significant hospital events: 52 y/o F with history of left osteosarcoma s/p left hemipelvectomy, cystorrhaphy and bladder neck repair, cystoscopy, and left iliac exposure 12/14/17 Mental / Cognitive Status: Alert;Oriented;Cooperative;Follows Commands Persons Present: Student Pain: Patient complains of pain;Patient does not rate pain Pain Location: Left;Hip Pain Interventions: Patient pre-medicated;Patient agrees to participate in therapy;Treatment altered to patient's pain tolerance;Patient assisted into position of comfort L LE Precautions: LLE Non-Weight Bearing (1 MANNY drain) Comments: Lay on right side as much as possible for edema management per Ortho note 12/16; Don't lie flat for extended periods of time Ambulation Assist: Independent Mobility in Community without Device Patient Owned Equipment: Crutches Home Situation: Lives with Family Type of Home: House Entry Stairs: 1-2 Stairs In-Home Stairs: No Stairs BED MOBILITY/TRANSFERS: Bed Mobility: Supine to Sit: Maximum Assist;x2 People;Head of Bed Elevated; Assist with Trunk;Assist with R LE;Verbal Cues Bed Mobility: Sit to Supine: Minimal Assist;x2 People;Assist with Trunk;Assist with R LE With pt sitting EOB, pt was able to perform anterior weight shift with partial lift off from bed using roller walker and moderate assistance of 2 persons with R knee blocked for safety. Pt fatigued with partial standing (achieved initial lift off only) and requested to return to supine position. Session then concluded. ACTIVITY/EXERCISE: Activity / Exercise Sit Edge Of Bed: 7 minutes Sit Edge Of Bed Assist: (variable from moderate assistance to standby) Activity limited by: Pain, fatigue (pt diaphoretic) EDUCATION: Education Persons Educated: Patient Patient Barriers To Learning: Pain Interventions: Repetition of Instructions;Demonstration Provided Teaching Methods: Verbal Instruction;Demonstration Patient Response: More Instruction Required Topics: Plan/Goals of PT Interventions;Mobility Progression;Precautions;Safety Awareness;Importance of Increasing Activity;Positioning;Recommend Continued Therapy;Therapy Schedule ASSESSMENT/PROGRESS: Assessment/Progress Impaired Mobility Due To: Pain;Weight Bearing Restrictions;Decreased Activity Tolerance;Deconditioning;Post Surgical Changes AM-PAC 6 Clicks Basic Mobility Inpatient Turning from your back to your side while in a flat bed without using bed rails : Total Moving from lying on your back to sitting on the side of a flatbed without using bedrails : Total Moving to and from a bed to a chair (including a wheelchair): Total Standing up from a chair using your arms (e.g. wheelchair, or bedside chair): Total To walk in hospital room: Total Climbing 3-5 steps with a railing: Total Raw Score: 6 Standardized (T-scale) Score: 16.59 Basic Mobility CMS 0-100%: 100 CMS G Code Modifier for Basic Mobility: CN GOALS: Goals Goal Formulation: With Patient Time For Goal Achievement: 7 days Pt Will Go Supine To/From Sit: w/ Moderate Assist, w/ Assist of 2, Ongoing Pt Will Transfer Bed/Chair: w/ Moderate Assist, w/ Assist of 2 Pt Will Transfer Sit to Stand: w/ Moderate Assist, w/ Assist of 2 PLAN: Plan Treatment Interventions: Mobility Training;Strengthening Plan Frequency: 5-7 Days per Week Comments: Progress sitting balance/tolerance and continue to initiate partial lift offs from EOB to progress to standing with roller walker. If pt unable to progress to standing within the next 1-2 sessions, may want to initiate slide board transfers to determine safe transfer technique to progress to OOB. RECOMMENDATIONS: PT Discharge Recommendations PT Discharge Recommendations: Inpatient Setting Equipment Recommendations: Too early to be determined Therapist: Cassandra Villatoro Date: 12/21/2017 * Hawk Ortega, RN - 12/21/2017 10:00 AM CDT Patient requested to take 800mg of Gabapentin instead of the ordered 1200mg. Dose given and Dr. Zarate notified. Will await new orders. * Annette Ling, SANJAY - 12/20/2017 6:56 PM CDT I have reviewed the notes, assessment, and/or procedures performed by Denise Ortega and concur with her/his documentation unless otherwise noted. * Nneka Thompson RD - 12/20/2017 3:58 PM CDT CLINICAL NUTRITION Clinical Nutrition Follow-Up Summary Nutrition Assessment of Patient: Malnutrition Assessment: Adequately nourished prior to admission Current Oral Intake: Improving Estimated Calorie Needs: 8068-5372 (30-35 kcals/kg per DBW 55.3kg) Estimated Protein Needs: 83-111 (1.5-2 gm/kg per DBW 55.3kg) Oral Diet Order: Regular Beata Kaiser is a 52 y.o. 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 (Pt's weight is now down 28# or 12% s/p removal of her leg). Pt appears obese, no clear signs of muscle or fat wasting. NGT was removed over the weekend, and CLD was starting 12/19. Pt tolerated CLD and her diet was advanced to regular this am. RD unable to speak with Pt today x 2, first Pt in transit to floor, and then Pt speaking with MDs. No reports of N/V recorded. Pt with BM x 3 today. No edema or pressure injuries. RD to follow up in a couple days to monitor for diet tolerance. Recommendation: Recommend switching to Diabetic Diet 5776-7843 kcals due to Pt's h/o DM and elevated BGs. Intervention / Plan: Will monitor PO intake adequacy/ tolerance Will monitor GI function, labs, and weights Nutrition Diagnosis: Nutrition Diagnosis: Increased nutrient needs, specify: (kcals/protein) Etiology: demands of wound healing Signs & Symptoms: Pt s/p hemipelvectomy Nutrition Diagnosis: Inadequate oral intake Etiology: related to possible post-op ileus Signs & Symptoms: Pt on CLD yesterday, diet advanced today Goals: Initiate nutrition Time Frame: Within 72 Hours Status: Met;new goal established Patient to consume >50% of meals Time Frame: Within 72 Hours Nneka Thompson MS, RD, LD, CNSC Pager [phone] Office [phone] * Annette Ling, RN - 12/20/2017 3:55 PM CDT When the patient was cleaned up, the PNC catheter was dislodged and laying in the bed. PNC had not been infusing since yesterday in the SICU. * Keiko Cao - 12/20/2017 3:28 PM CDT Unit Meat Boner And Slicer checked chart for note taking regarding Unit assignments. The spiritual care team is available as needed, 12/04, through the [place] switchboard ([phone]). For immediate response, please page [phone]. For a response within 24 hours, please submit an order in O2 for a sql analyst consult or call the administrative voicemail at [phone]. Respectfully Submitted, Rev. Keiko Cao Sewing Machine Repairer Helper Extension [phone] * Ruth Abbott, PT - 12/20/2017 1:02 PM CDT PHYSICAL THERAPY NOTE Attempted to see patient this afternoon at scheduled time with radiologic technician. Patient just transferred off of SICU to the floor. Met with patient once up on the floor and patient declined, requesting to hold therapy until tomorrow. Roller walker placed in patients room for possible attempts at standing next session. Physical therapy will follow up with the patient on 12/21. Therapist: Ruth Abbott, PT, DPT Date: 12/20/2017 * Italia Ramos, RN - 12/20/2017 12:00 PM CDT 1200: Report received from Nichole Mendieta RN. 1245: Pt arrived to unit. * Melba Forbes M.[facility], [facility] - 12/20/2017 11:30 AM CDT Meat Boner And Slicer Note: Admit Date: 12/13/2017 Reason for Visit: Meat Boner And Slicer met with patient per her request for a sql analyst visit. Meat Boner And Slicer introduced Spiritual Care and offered active listening as pt shared about her health issues and family. Shantell/Hinduism: Pt confirmed that she is Nondenominational. Pt has recently gone to [facility] in [place], [place] with some co-workers. Pt states this orthodoxy is "more Jain" bus she likes it saying the "thermal cutting machine operator provides a good message." Source of Purpose/Meaning: Pt's family appears to be important to her. One daughter, Lynn, was in pt's room and pt has another daughter and son plus her spouse. 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 Pt is not sure that she will be able to keep that same job, yet is hoping to be able to stay on doing more desk work. Meat Boner And Slicer did not catch the name of her employer, but pt says they are working with her. Worries/Concerns/Struggles: Pt's biggest concern at this visit seemed to be the phantom pain that she is experiencing on her left side. Pt notes that her left leg was amputated at the hip last . Pt has been having lots of pain and has disliked some of the side effects of some medications. Method(s) of Coping: Pt appreciates the support of her family and appears to be handling this life-changing situation fairly well. At one point, pt said "I know I can handle having my leg amputated, but I'm not sure about this pain." Pt is able to communicate her needs and seems to appreciate staff support. Pt' s shantell is also important to her. Support System: Pt has supportive family members and shared that "so many people have reached out" to her once they learned of her situation. Pt has support from her community and work. Interventions/Plan: Meat Boner And Slicer provided supportive presence as pt shared about her situation. Pt requested prayer which sql analyst provided. Pt would appreciate follow-up visits and is not sure if she will go to another unit and later rehab as she continues to recover. Meat Boner And Slicer also spoke individually to daughter Lynn and learned that she is with her first child. Pt has other grandchildren (ages 8 & 4) so this will be her third grandchild. Family is traveling back and forth from [place] to support pt. The spiritual care team is available as needed, 12/04, through the [facility] switchboard ([phone]). For immediate response, please page [phone]. For a response within 24 hours, please submit an order in O2 for a sql analyst consult or call the administrative voicemail at [phone]. Please page or use consult order if patient or family requests visit. 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 Precautions: Falls L LE Precautions: LLE Non-Weight Bearing Pain / Complaints: Patient premedicated Pain Location: Left;Hip Pain Level Current: 7 Objective Psychosocial Status: Willing and Cooperative to Participate Persons Present: (tech, family member sleeping in chair) Home Living Type of Home: House Home Layout: Performs ADL'S on One Level (2 steps to enter) Bathroom Shower / Tub: Tub/Shower Unit Prior Function Level Of [place]: Independent with ADLs and functional transfers Lives With: Spouse;Family (2 adult daughters and their SO) ADL's Where Assessed: Edge of Bed Eating Assist: Independent Grooming Assist: Stand By Assist Grooming Deficits: Setup;Brushing Hair;Wash/Dry Face LE Dressing Assist: Total Assist LE Dressing Deficits: Don/Doff R Sock Toileting Assist: Total Assist Toileting Deficits: Perineal Hygiene (incont of BM during session, melchor) Functional Transfer Assist: Maximum Assist (of 1 and mod assist of 1 to EOB) Comment: Pt had incont of BM prior to oob. Cleaned BM and changed pads with pt needing max assist for bed mobility. Pt sat on EOB with min to SBA for balance. Worked on dynamic reaching activites on EOB. Pt performed grooming tasks with set up. Pt tolerated EOB for approx 15+mins. Curb step utilized on EOB for RLE support. Pt returned to bed and RN notifed pt continued to have incont of BM. Activity Tolerance Sitting Balance: 2+/5 Supports Self w/ 1 UE Cognition Overall Cognitive Status: WFL to Adequately Complete Self Care Tasks Safely UE Strength / Tone Overall Strength / Tone: Right;Left;4/5 Education Persons Educated: Patient Barriers To Learning: None Noted Teaching Methods: Verbal Instruction;Demonstration Patient Response: Verbalized and Demo Understanding Topics: Role of OT, Goals for Therapy;ADL Compensatory Techniques Goal Formulation: With Patient Assessment Assessment: Decreased Self-Care Trans;Decreased ADL Status Prognosis: Good;w/Cont OT s/p Acute Discharge Plan Treatment Interventions: ADL Retraining;Functional Transfer Training;Endurance Training;Equipment Evaluation/Education ADL Goals Patient Will Perform Grooming: at Edge of Bed, w/ Stand By Assist, Met Patient Will Perform Toileting: w/ Moderate Assist, w/ Bedside Commode Functional Transfer Goals Pt Will Transfer To Bedside Commode: w/ Moderate Assist Pt Will Transfer To Toilet: w/ Minimum Assist OT Discharge Recommendations OT Discharge Recommendations: Inpatient Setting Equipment Recommendations: BSC Additional Information: Next treatment: Continue EOB activity and then progress to transfer to BSC/chair Therapist: HUYEN Schmidt Date: 12/20/2017 * Adrienne Zarate MD - 12/20/2017 8:45 AM CDT Formatting of this note may be different from the original. Subjective: No events overnight. Pain well controlled this morning. Tolerating diet without n/v. +BM Objective: Blood pressure 107/67, pulse 110, temperature 37 C (98.6 F), height 162.6 cm (64"), weight 92.5 kg (203 lb 14.8 oz), SpO2 97 %. General: AAOx3, NAD Cardiac: tachycardic Respirations: Unlabored Extremities: LLE hemipelvectomy, dressings c/d/i Post-op Drains: (24 hours) MANNY: 255 ml No results for input(s): PTT, INR in the last 72 hours. 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 -Advance to Regular diet -Clinda until drain comes out -Melchor catheter x4 wks minimum -Maintain dressings, ortho to manage -Maintain MANNY drain -Epidural removed 12/19 -Resume xarelto for DVT -Please do not leave flat for extended periods of time, would like patient to lay onto her right side as much as possible for swelling management of L hemipelvectomy -Acute blood loss anemia- Hgb 10.4, stable, will continue to monitor -Rehab consult- appreciate recs -HUMAN RESOURCES RECEPTIONIST psych consult for coping, depression- appreciate assistance Dispo: continue inpatient care, transfer to floor Adrienne Zarate MD Pager [phone] * Ruth Abbott, PT - 12/19/2017 1:33 PM CDT PHYSICAL THERAPY PROGRESS NOTE MOBILITY: Progressive Mobility Level: Sit on edge of bed Level of Assistance: Assist X2 Assistive Device: None Time Tolerated: 0-10 minutes Activity Limited By: Pain;Weakness;Patient request to stop SUBJECTIVE: Significant hospital events: 52 y/o F with history of left osteosarcoma s/p left hemipelvectomy, cystorrhaphy and bladder neck repair, cystoscopy, and left iliac exposure 12/14/17 Mental / Cognitive Status: Alert;Oriented;Cooperative;Follows Commands 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;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 Pain: Patient complains of pain;Before activity;During activity;Patient does not rate pain Pain Location: Left;Hip Pain Interventions: Patient pre-medicated;Patient agrees to participate in therapy with modifications to session;Patient encouraged to use DIRECTOR PHARMACOLOGY/PNC (IV) Precautions: NGT, 1 MANNY drain L LE Precautions: LLE Non-Weight Bearing Comments: Lay on right side as much as possible for edema management per Ortho note 12/16; Don't lie flat for extended periods of time Ambulation Assist: Independent Mobility in Community without Device Patient Owned Equipment: Crutches Home Situation: Lives with Family Type of Home: House Entry Stairs: 1-2 Stairs In-Home Stairs: No Stairs BED MOBILITY/TRANSFERS: Bed Mobility: Rolling: Moderate Assist;x2 People;Assist with Trunk;Assist with R LE Bed Mobility: Supine to Sit: Maximum Assist;x2 People;Head of Bed Elevated; Assist with Trunk;Assist with R LE;Verbal Cues Bed Mobility: Sit to Supine: Maximum Assist;x2 People;Assist with Trunk;Assist with B LE;Verbal Cues End Of Activity Status: In Bed;Nursing Notified;Instructed Patient to Request Assist with Mobility;Instructed Patient to Use Call Light ACTIVITY/EXERCISE: Sit Edge Of Bed: 5 minutes Sit Edge Of Bed Assist: Stand By Assist Comments: Patient struggling with pain control this date due to removal of epidural. Able to tolerate sitting edge of bed and scooting hips forward. Despite forward scooting, unable to contact the ground with RLE - will bring curb step to allow weight bearing next session EDUCATION: Persons Educated: Patient Patient Barriers To Learning: Pain;Anxiety Interventions: Repetition of Instructions Teaching Methods: Verbal Instruction Patient Response: Verbalized Understanding;More Instruction Required Topics: Plan/Goals of PT Interventions;Mobility Progression;Precautions;Safety Awareness;Importance of Increasing Activity;Positioning;Recommend Continued Therapy;Therapy Schedule ASSESSMENT/PROGRESS: Impaired Mobility Due To: Pain;Weight Bearing Restrictions;Decreased Activity Tolerance;Deconditioning;Post Surgical Changes Impaired Strength Due To: Post Surgical Changes;Decreased Activity Tolerance; Deconditioning Assessment/Progress: Progressing Toward Goals AM-PAC 6 Clicks Basic Mobility Inpatient Turning from your back to your side while in a flat bed without using bed rails : Total Moving from lying on your back to sitting on the side of a flatbed without using bedrails : Total Moving to and from a bed to a chair (including a wheelchair): Total Standing up from a chair using your arms (e.g. wheelchair, or bedside chair): Total To walk in hospital room: Total Climbing 3-5 steps with a railing: Total Basic Mobility CMS 0-100%: 100 CMS G Code Modifier for Basic Mobility: CN GOALS: Goal Formulation: With Patient Time For Goal Achievement: 7 days Pt Will Go Supine To/From Sit: w/ Moderate Assist, w/ Assist of 2, Ongoing Pt Will Transfer Bed/Chair: w/ Moderate Assist, w/ Assist of 2 Pt Will Transfer Sit to Stand: w/ Moderate Assist, w/ Assist of 2 PLAN: Treatment Interventions: Mobility Training;Strengthening Plan Frequency: 5-7 Days per Week Bring curb step to allow RLE to contact the ground to get weight bearing/ forward weight shifting Beginning scooting edge of bed vs pre-standing activities depending upon performance next session (will need to ensure all dressings secured prior to attempting any standing) RECOMMENDATIONS: PT Discharge Recommendations: Inpatient Setting Equipment Recommendations: Too early to be determined Therapist: Ruth Abbott, PT, DPT Date: 12/19/2017 * Harry Iniguez, DO - 12/19/2017 9:55 AM CDT Formatting of this note may be different from the original. Anesthesiology Acute Pain Service Date of Service: 12/19/2017 Name: Beata Kaiser is a 52 y.o. female : 1965 MRN# : [id number] PROCEDURE: Procedure(s) with comments: JAMIL PELVECTOMY - CASE LENGTH 5 HOURS CYSTORRHAPHY AND BLADDER NECK REPAIR, CYSTOSCOPY, LEFT ILIAC EXPOSURE POD #: 5, PCEA day 4 ANALGESIA TECHNIQUE Epidural catheter: Bupi 0.125% ADJUNCT ANALGESIA MEDICATIONS Oxycodone acetaminophen PO Gabapentin Fentanyl TREATMENT PLAN PCEA discontinued today, epidural removed, tip intact, anticoagulation status and platelet count check prior to removal. Also increased her gabapentin dosing to 1200mg TID and increased Oxycodone to 5-15mg. Analgesia will now be covered by primary team. Please don't hesitate to contact us with any questions. Anesthesia Pain pager: [phone] Allergies Allergen Reactions Cephalexin SEE COMMENTS Face gets red, feels really hot Inpatient Medications Scheduled Meds: acetaminophen (TYLENOL) tablet 1,000 mg 1,000 mg Per NG tube Q6H* buPROPion (WELLBUTRIN) tablet 100 mg 100 mg Per NG tube TID busPIRone (BUSPAR) tablet 30 mg 30 mg Per NG tube BID clindamycin (CLEOCIN) 600 mg/D5W 50 mL IVPB 600 mg Intravenous Q8H* gabapentin (NEURONTIN) oral solution 1,200 mg 1,200 mg Per NG tube TID heparin (porcine) PF syringe 5,000 Units 5,000 Units Subcutaneous BID insulin aspart U-100 (NOVOLOG FLEXPEN) injection PEN 0-14 Units 0-14 Units Subcutaneous 5 X Day levothyroxine (SYNTHROID) tablet 175 mcg 175 mcg Per NG tube QDAY before breakfast Continuous Infusions: PRN and Respiratory Meds:diphenhydrAMINE Q6H PRN OR diphenhydrAMINE Q6H PRN , fentaNYL citrate PF Q1H PRN, hyoscyamine Q4H PRN, naloxone PRN, ondansetron ( ZOFRAN) IV Q6H PRN, oxyCODONE Q3H PRN Anticoagulants heparin (porcine) PF syringe 5,000 Units BID HPI Visual Analog Scale (VAS) (0-10 Scale) At rest: 5 Patient satisfied with pain control: Yes Side Effects: none EXAM Recent Vitals Vital Signs: 24 Hour Range BP: 126/68 (12/20 799) Temp: 36.7 C (98.1 F) (12/20 799) Pulse: 119 (12/19 899) Respirations: 18 PER MINUTE (12/19 899) SpO2: 100 % (12/19 899) O2 Delivery: None (Room Air) (12/19 899) SpO2 Pulse: 118 (12/19 899) BP: (120-154)/(65-82) Temp: [36.7 C (98.1 F)-37.2 C (99 F)] Pulse: [99-119] Respirations: [15 PER MINUTE-25 PER MINUTE] SpO2: [92 %-100 %] O2 Delivery: None (Room Air) Lab Results Component Value Date PLTCT 274 12/19/2017 WBC 17.0 12/19/2017 HGB 8.2 12/19/2017 HCT 23.8 12/19/2017 CR 0.46 12/19/2017 PTT 23.7 12/14/2017 INR 1.0 11/30/2017 Level of Consciousness: Awake/alert Neurologic Function Sensory block: Yes Motor: No Insertion Site: Site clean and nontender Associated attestation - Aimee Aiken MD - 12/19/2017 10:18 AM CDT ATTESTATION I personally observed the resident performing the E/M, discussed case with resident, and concur with resident documentation of history, physical assessment and treatment plan unless otherwise noted. * Kristie Cruz MD - 12/19/2017 7:43 AM CDT Formatting of this note may be different from the original. Subjective: No events overnight. Patient resting comfortably this morning. NGT removed, tolerating CLD. Issues with pain after DIRECTOR PHARMACOLOGY removed. Continues to have flatus. +BM. Objective: Blood pressure 142/68, pulse 108, temperature 37 C (98.6 F), height 162.6 cm (64"), weight 92.5 kg (203 lb 14.8 oz), SpO2 95 %. General: AAOx3, NAD Cardiac: tachycardic Respirations: Unlabored Extremities: LLE hemipelvectomy, dressings with moderate serosanguinous drainage posteriorly Post-op Drains: (24 hours) MANNY: 940 ml No results for input(s): PTT, INR in the last 72 hours. 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 -CLD -Clinda until drain comes out -Melchor catheter x4 wks minimum -Maintain dressings, ortho to manage -Maintain MANNY drain- resume bulb suction today -SICU consult -Anesthesia pain consult- anesthesia to manage pain while epidural in place, placed on IV for breakthru due to issues with pain control -SQ heparin for DVT ppx while epidural in place -Please do not leave flat for extended periods of time, would like patient to lay onto her right side as much as possible for swelling management of L hemipelvectomy -Acute blood loss anemia- Hgb 8.2, stable, will continue to monitor Dispo: continue ICU care, possible transfer to floor tomorrow Kristie Cruz MD Pager [phone] * Chris Badillo MD - 12/19/2017 6:31 AM CDT Called to patients bedside for complaints of increased pain. Pt reports burning pain of the left lower extremity surgical site. Pt aware that the epidural may be removed later today. Elected to increase setting on epidural to see if this improves her symptoms. Additionally added oral oxycodone and d/c'd IV fentanyl. * Aimee Aiken MD - 12/18/2017 10:47 AM CDT Formatting of this note may be different from the original. Anesthesiology Acute Pain Service Date of Service: 12/18/2017 Name: Beata Kaiser is a 52 y.o. female : 1965 MRN# : [id number] PROCEDURE: Procedure(s) with comments: JAMIL PELVECTOMY - CASE LENGTH 5 HOURS CYSTORRHAPHY AND BLADDER NECK REPAIR, CYSTOSCOPY, LEFT ILIAC EXPOSURE POD #: 4, PCEA day 3 ANALGESIA TECHNIQUE Epidural catheter: Bupi 0.125% ADJUNCT ANALGESIA MEDICATIONS dilaudid acetaminophen PO gabapentin TREATMENT PLAN Continue use of epidural for pain management and will increase neurontin. Patient with c/o "burning" pain, therefore will increase gabapentin today. NGT likely to removed today. Will plan to d/c epidural tomorrow and transition to oral analgesics Anesthesia Pain pager: [phone] Allergies Allergen Reactions Cephalexin SEE COMMENTS Face gets red, feels really hot Inpatient Medications Scheduled Meds: acetaminophen (TYLENOL) tablet 1,000 mg 1,000 mg Per NG tube Q6H* buPROPion (WELLBUTRIN) tablet 100 mg 100 mg Per NG tube TID busPIRone (BUSPAR) tablet 30 mg 30 mg Per NG tube BID clindamycin (CLEOCIN) 600 mg/D5W 50 mL IVPB 600 mg Intravenous Q8H* gabapentin (NEURONTIN) oral solution 900 mg 900 mg Per NG tube TID heparin (porcine) PF syringe 5,000 Units 5,000 Units Subcutaneous BID insulin aspart U-100 (NOVOLOG FLEXPEN) injection PEN 0-14 Units 0-14 Units Subcutaneous 5 X Day levothyroxine (SYNTHROID) tablet 175 mcg 175 mcg Per NG tube QDAY before breakfast potassium phosphate 20 mmol in sodium chloride 0.9% (NS) 500 mL IVPB (std) 20 mmol Intravenous ONCE Continuous Infusions: bupivacaine DIRECTOR PHARMACOLOGY 0.125% in NS 50mL epidural infusion syr PRN and Respiratory Meds:diphenhydrAMINE Q6H PRN OR diphenhydrAMINE Q6H PRN , HYDROmorphone (DILAUDID) injection Q2H PRN, hyoscyamine Q4H PRN, naloxone PRN , ondansetron (ZOFRAN) IV Q6H PRN Anticoagulants heparin (porcine) PF syringe 5,000 Units BID HPI Visual Analog Scale (VAS) (0-10 Scale) At rest: 5 Patient satisfied with pain control: Yes Side Effects: none EXAM Recent Vitals Vital Signs: 24 Hour Range BP: 149/76 (12/18 1000) Temp: 37.2 C (99 F) (12/18 0800) Pulse: 106 (12/18 1000) Respirations: 21 PER MINUTE (12/18 1000) SpO2: 95 % (12/18 1000) O2 Delivery: None (Room Air) (12/18 0900) SpO2 Pulse: 106 (12/18 1000) BP: (105-149)/(55-80) Temp: [36.4 C (97.6 F)-37.4 C (99.3 F)] Pulse: [104-122] Respirations: [0 PER MINUTE-31 PER MINUTE] SpO2: [93 %-99 %] O2 Delivery: None (Room Air) Lab Results Component Value Date PLTCT 217 12/18/2017 WBC 18.2 12/18/2017 HGB 8.6 12/18/2017 HCT 24.6 12/18/2017 CR 0.52 12/18/2017 PTT 23.7 12/14/2017 INR 1.0 11/30/2017 Level of Consciousness: Awake/alert Neurologic Function Sensory block: Yes Motor: No Insertion Site: Site clean and nontender * Kristie Cruz MD - 12/18/2017 10:05 AM CDT Formatting of this note may be different from the original. Subjective: No events overnight. Patient resting comfortably this morning. NGT output improved, tolerating it being clamped overnight. Pain improved overnight. Continues to have flatus. +BM. Objective: Blood pressure 148/80, pulse 113, temperature 37.2 C (99 F), height 162.6 cm (64"), weight 92.5 kg (203 lb 14.8 oz), SpO2 98 %. General: AAOx3, NAD Cardiac: tachycardic Respirations: Unlabored Extremities: LLE hemipelvectomy, dressings with moderate serosanguinous drainage posteriorly Post-op Drains: (24 hours) MANNY: 1450 ml No results for input(s): PTT, INR in the last 72 hours. CBC w/Diff Lab Results Component Value Date/Time WBC 18.2 (H) 12/18/2017 03:07 AM HGB 8.6 (L) 12/18/2017 03:07 AM HCT 24.6 (L) 12/18/2017 03:07 AM PLTCT 217 12/18/2017 03:07 AM Basic Metabolic Profile Lab Results Component Value Date/Time NA 140 12/18/2017 03:07 AM K 3.4 (L) 12/18/2017 03:07 AM CL 104 12/18/2017 03:07 AM CO2 28 12/18/2017 03:07 AM GAP 8 12/18/2017 03:07 AM Lab Results Component Value Date/Time BUN 21 12/18/2017 03:07 AM CR 0.52 12/18/2017 03:07 AM GLU 134 (H) 12/18/2017 03:07 AM A/P: 52 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 -CLD, pull NG tube -Clinda until drain comes out -Melchor catheter x4 wks minimum -Maintain dressings, ortho to manage -Maintain MANNY drain- resume bulb suction today -SICU consult -Anesthesia pain consult- anesthesia to manage pain while epidural in place -SQ heparin for DVT ppx while epidural in place -Please do not leave flat for extended periods of time, would like patient to lay onto her right side as much as possible for swelling management of L hemipelvectomy -Acute blood loss anemia- Hgb 8.6, stable, will continue to monitor Dispo: continue ICU care Kristie Cruz MD Pager [phone] * Harry Moore MD - 12/18/2017 6:47 AM CDT Formatting of this note may be different from the original. Intensive Care Surgery Progress Note Admission Date:12/13/2017 LOS: 5 days Assessment: Beata Kaiser is a 52 y.o. 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 anesthesia pain on board. -- tylenol -- epidural -- gabapentin -- dilaudid IV depression -- Wellbutrin -- buspar CV normotensive. SBP: 100-120s. tachycardic HR 100s-120s. Continue to monitor Pulm Stable on RA Pulmonary toilet, encourage IS GI/FEN CLD, no ice chips Remove NGT pepcid Zofran prn nausea Monitor and replace lytes prn Urology consulted: - Maintain melchor catheter x4 weeks - Levsin PRN for bladder spasms UOP 837ml BUN/CR normalized Continue to monitor Heme/ID Acute blood loss anemia -- Hgb 8.6. Stable. Continue to trend serially. Optimize fluid balance. Monitor stools for signs of occult GI bleeding. -- TEG normal Leukocytosis 18.2 Afebrile -- clinda until drain out Endo DM MDCF insulin Hypothyroidism synthroid Monitor and treat prn MS PT/OT Ortho primary: -NPO, NG tube -Clinda until drain comes out -Melchor catheter x4 wks minimum -Maintain dressings, ortho to manage -Please do not leave flat for extended periods of time, would like patient to lay onto her right side as much as possible MANNY drain: 1.4L, monitor closely. bulb suction PPx SCDs, heparin Disp - encourage PO intake. Critical care will sign off, call with questions SW/CM following for discharge planning needs. Patient seen and discussed with Dr. Couch improved Objective: Current Vitals: Vitals 24hr Range: Hemodynamics BP: 116/69 (12/18 599) Temp: 37.4 C (99.3 F) (12/18 0400) Pulse: 105 (12/18 599) Respirations: 17 PER MINUTE (12/18 599) SpO2: 97 % (12/18 599) O2 Delivery: None (Room Air) (12/18 599) Weight: 92.5 kg (203 lb 14.8 oz) (12/18 599) BP: (105-138)/(55-77) Temp: [36.4 C (97.6 F)-37.4 C (99.3 F)] Pulse: [105-122] Respirations: [0 PER MINUTE-31 PER MINUTE] SpO2: [93 %-99 %] O2 Delivery: None (Room Air) Vitals: 12/13/17 1115 12/17/17 1600 12/18/17 0600 Weight: 104.8 kg (231 lb 0.7 oz) 94.6 kg (208 lb 8.9 oz) 92.5 kg (203 lb 14.8 oz ) Physical Exam: Gen: AAOx3 Cardio: Tachycardic, regular rhythm Pulm: unlabored breathing Abd: Soft, obese, nondistended, nontender Ext: surgically removed LLE. Dressing with some saturation. MANNY drain with SS output Neuro: No focal neuro deficits Intake & Output: Intake/Output Summary (Last 24 hours) at 12/18/17 0647 Last data filed at 12/18/17 0600 Gross per 24 hour Intake 1022 ml Output 5280 ml Net -4258 ml Labs: Hematology Chemistry Glucose Lab Results Component Value Date/Time WBC 18.2 (H) 12/18/2017 03:07 AM HGB 8.6 (L) 12/18/2017 03:07 AM HCT 24.6 (L) 12/18/2017 03:07 AM PLTCT 217 12/18/2017 03:07 AM APTT Date/Time Value Ref Range Status 12/14/2017 06:42 PM 23.7 21.0 - 39.0 SEC Final 12/14/2017 06:12 AM 29.3 21.0 - 39.0 SEC Final INR Date/Time Value Ref Range Status 11/30/2017 08:15 AM 1.0 0.8 - 1.2 Final Lab Results Component Value Date PHART 7.33 12/16/2017 PCO2A 41 12/16/2017 PO2ART 84 12/16/2017 HCO3A 20.9 12/16/2017 BASEDEFA 4.2 12/16/2017 Lab Results Component Value Date/Time NA 140 12/18/2017 03:07 AM K 3.4 (L) 12/18/2017 03:07 AM CL 104 12/18/2017 03:07 AM CO2 28 12/18/2017 03:07 AM BUN 21 12/18/2017 03:07 AM CR 0.52 12/18/2017 03:07 AM GFR >60 12/18/2017 03:07 AM GLU 134 (H) 12/18/2017 03:07 AM CA 8.8 12/18/2017 03:07 AM PO4 2.5 12/18/2017 03:07 AM ALBUMIN 2.9 (L) 12/15/2017 10:00 PM TOTPROT 4.8 (L) 12/15/2017 10:00 PM ALKPHOS 59 12/15/2017 10:00 PM AST 33 12/15/2017 10:00 PM ALT 15 12/15/2017 10:00 PM TOTBILI 0.5 12/15/2017 10:00 PM Glucose, POC Date/Time Value Ref Range Status 12/18/2017 03:08 AM 132 (H) 70 - 100 MG/DL Final 12/17/2017 08:27 PM 154 (H) 70 - 100 MG/DL Final 12/17/2017 05:31 PM 197 (H) 70 - 100 MG/DL Final 12/17/2017 12:05 PM 136 (H) 70 - 100 MG/DL Final 12/17/2017 08:17 AM 123 (H) 70 - 100 MG/DL Final 12/17/2017 03:04 AM 135 (H) 70 - 100 MG/DL Final 12/16/2017 08:26 PM 131 (H) 70 - 100 MG/DL Final 12/16/2017 05:01 PM 165 (H) 70 - 100 MG/DL Final 12/16/2017 12:09 PM 181 (H) 70 - 100 MG/DL Final 12/16/2017 09:39 AM 171 (H) 70 - 100 MG/DL Final Medications: gtts bupivacaine DIRECTOR PHARMACOLOGY 0.125% in NS 50mL epidural infusion syr Scheduled acetaminophen (TYLENOL) tablet 1,000 mg 1,000 mg Per NG tube Q6H* buPROPion (WELLBUTRIN) tablet 100 mg 100 mg Per NG tube TID busPIRone (BUSPAR) tablet 30 mg 30 mg Per NG tube BID clindamycin (CLEOCIN) 600 mg/D5W 50 mL IVPB 600 mg Intravenous Q8H* gabapentin (NEURONTIN) oral solution 900 mg 900 mg Per NG tube TID heparin (porcine) PF syringe 5,000 Units 5,000 Units Subcutaneous BID insulin aspart U-100 (NOVOLOG FLEXPEN) injection PEN 0-14 Units 0-14 Units Subcutaneous 5 X Day levothyroxine (SYNTHROID) tablet 175 mcg 175 mcg Per NG tube QDAY before breakfast potassium phosphate 20 mmol in sodium chloride 0.9% (NS) 500 mL IVPB (std) 20 mmol Intravenous ONCE PRN diphenhydrAMINE Q6H PRN OR diphenhydrAMINE Q6H PRN, HYDROmorphone (DILAUDID ) injection Q2H PRN, hyoscyamine Q4H PRN, naloxone PRN, ondansetron (ZOFRAN) IV Q6H PRN Harry Moore MD * Chari Delgado RN - 12/17/2017 5:30 PM CDT Critical care team and ortho notified in regards to patient's MANNY tube output of 940mL and MANNY draining around tube onto chux measuring ~ 1500mL this shift. Dressings changed. Orders to draw CBC at this time. Will follow through with orders. * Chari Delgado RN - 12/17/2017 4:02 PM CDT Orders to keep NG tube clamped per Dr. Luther. If patient has nausea to put NG tube to LIWS. Okay to change dressing if soiled. Will follow through with orders. * Florence Melgar RN - 12/17/2017 1:48 PM CDT Patient complains of headache while dangling with therapy. Giving scheduled dose of tylenol at this time would exceed 4 g/24 hours. Patient and Chari Delgado RN notified. * Tanya Spain OT - 12/17/2017 1:30 PM CDT OCCUPATIONAL THERAPY ASSESSMENT NOTE Patient Name: Beata Kaiser Room/Bed: [place] [address] Admitting Diagnosis: Pelvic mass [R19.00] Pelvic mass in female Mobility Progressive Mobility Level: Sit on edge of bed Level of Assistance: Assist X2 Assistive Device: None Time Tolerated: 11-30 minutes Activity Limited By: Pain;Weakness;Patient request to stop Subjective Pertinent Dx per Physician: 52 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 Precautions: Falls (NGT) L LE Precautions: LLE Non-Weight Bearing Comments: Lay on right side as much as possible for edema management per Ortho note 12/16; Don't lie flat for extended periods of time Pain / Complaints: Patient premedicated;Patient demonstrates nonverbal signs of pain Pain Location: Left;Incisional Objective Psychosocial Status: Willing and Cooperative to Participate Persons Present: PT Home Living Type of Home: House Home Layout: Performs ADL'S on One Level (2 steps to enter) Bathroom Shower / Tub: Tub/Shower Unit Prior Function Level Of [place]: Independent with ADLs and functional transfers Lives With: Spouse;Family (2 adult daughters and their SO) ADL's Where Assessed: Edge of Bed Eating Assist: Stand By Assist Eating Deficits: Setup (bringing swab to mouth) LE Dressing Assist: Total Assist LE Dressing Deficits: Don/Doff R Sock Functional Transfer Assist: (max Ax2 supine to sit EOB) Activity Tolerance Endurance: 2/5 Tolerates 10-20 Minutes Exercise w/Multiple Rests Sitting Balance: 1+/5 Supports Self w/>50% Effort UsingUE, Requires Therapist Assistance Cognition Overall Cognitive Status: WFL to Adequately Complete Self Care Tasks Safely Cognition Comment: pt tearful throughout session. UE AROM Overall BUE AROM WNL: Yes Coordination: Adequate to Complete ADLs UE Strength / Tone Overall Strength / Tone: Right;Left;4-/5 Education Persons Educated: Patient Teaching Methods: Verbal Instruction Patient Response: Verbalized Understanding Topics: Role of OT, Goals for Therapy Goal Formulation: With Patient Assessment Assessment: Decreased ADL Status;Decreased Endurance;Decreased Self-Care Trans; Decreased UE Strength Prognosis: Good;w/Cont OT s/p Acute Discharge AM-PAC 6 Clicks Daily Activity Inpatient Putting on and taking off regular lower body clothes?: Total Bathing (Including washing, rinsing, drying): Total Toileting, which includes using toilet, bedpan, or urinal: Total Putting on and taking off regular upper body clothing: A Lot Taking care of personal grooming such as brushing teeth: A Little Eating meals?: Total Daily Activity Raw Score: 9 Standardized (t-scale) score: 25.33 CMS 0-100% Score: 79.59 CMS G Code Modifier: CL Plan Treatment Interventions: ADL Retraining;Functional Transfer Training;Endurance Training;Patient/Family Training;UE Strengthing/ROM OT Frequency: 5x/week -next session: EOB ADls ADL Goals Patient Will Perform Grooming: at Edge of Bed, w/ Stand By Assist Functional Transfer Goals Pt Will Transfer To Bedside Commode: w/ Moderate Assist OT Discharge Recommendations OT Discharge Recommendations: Inpatient Setting, Recommend PM&R Consult to address most appropriate level of rehabilitation placement ([phone]). Therapist: Tanya Spain OT Date: 12/17/2017 * Ruth Abbott, PT - 12/17/2017 1:30 PM CDT PHYSICAL THERAPY ASSESSMENT MOBILITY: Progressive Mobility Level: Sit on edge of bed Level of Assistance: Assist X2 Assistive Device: None Time Tolerated: 11-30 minutes Activity Limited By: Pain;Weakness;Patient request to stop SUBJECTIVE: Significant hospital events: 52 y/o F with history of left osteosarcoma s/p left hemipelvectomy, cystorrhaphy and bladder neck repair, cystoscopy, and left iliac exposure 12/14/17 Mental / Cognitive Status: Alert;Oriented;Cooperative;Follows Commands Persons Present: OT Pain: Patient complains of pain;Before activity;During activity;Patient does not rate pain Pain Location: Left;Hip Pain Interventions: Patient pre-medicated;Patient agrees to participate in therapy with modifications to session;Patient encouraged to use DIRECTOR PHARMACOLOGY/PNC (IV) Precautions: Epidural,NGT, 1 MANNY drain L LE Precautions: LLE Non-Weight Bearing Comments: Lay on right side as much as possible for edema management per Ortho note 12/16; Don't lie flat for extended periods of time Ambulation Assist: Independent Mobility in Community without Device Patient Owned Equipment: Crutches Home Situation: Lives with Family Type of Home: House Entry Stairs: 1-2 Stairs In-Home Stairs: No Stairs ROM: ROM Method: Active LE ROM: Right;Hip;Knee;Ankle;WFL STRENGTH: Overall Strength: Generalized Weakness;No Focal Deficits Noted Gross Strength Grade: 4/5 R LE WNL: Yes BED MOBILITY/TRANSFERS: Bed Mobility: Rolling: Moderate Assist;x2 People;Assist with Trunk;Assist with R LE Bed Mobility: Supine to Sit: Maximum Assist;x2 People;Head of Bed Elevated; Assist with Trunk;Assist with R LE;Verbal Cues Bed Mobility: Sit to Supine: Maximum Assist;x2 People;Assist with Trunk;Assist with B LE;Verbal Cues End Of Activity Status: In Bed;Nursing Notified;Instructed Patient to Request Assist with Mobility;Instructed Patient to Use Call Light Patients vital signs stable throughout activity. BP supine in bed with HOB 45 degrees: 142/66. BP seated edge of bed: 140/82. ACTIVITY/EXERCISE: Sit Edge Of Bed: 8 minutes Sit Edge Of Bed Assist: Variable;Minimal Assist;Stand By Assist Comments: Patient minimal assist due to leaning posteriorly. At times, able to sit with standby assist especially toward end of time sitting. EDUCATION: Persons Educated: Patient Patient Barriers To Learning: Pain;Anxiety Interventions: Repetition of Instructions Teaching Methods: Verbal Instruction Patient Response: Verbalized Understanding;More Instruction Required Topics: Plan/Goals of PT Interventions;Mobility Progression;Precautions;Safety Awareness;Importance of Increasing Activity;Positioning;Recommend Continued Therapy;Therapy Schedule ASSESSMENT/PROGRESS: Impaired Mobility Due To: Pain;Weight Bearing Restrictions;Decreased Activity Tolerance;Deconditioning;Post Surgical Changes Impaired Strength Due To: Post Surgical Changes;Decreased Activity Tolerance; Deconditioning Assessment/Progress: Should Improve w/ Continued PT AM-PAC 6 Clicks Basic Mobility Inpatient Turning from your back to your side while in a flat bed without using bed rails : Total Moving from lying on your back to sitting on the side of a flatbed without using bedrails : Total Moving to and from a bed to a chair (including a wheelchair): Total Standing up from a chair using your arms (e.g. wheelchair, or bedside chair): Total To walk in hospital room: Total Climbing 3-5 steps with a railing: Total Basic Mobility CMS 0-100%: 100 CMS G Code Modifier for Basic Mobility: CN GOALS: Goal Formulation: With Patient Time For Goal Achievement: 7 days Pt Will Go Supine To/From Sit: w/ Moderate Assist, w/ Assist of 2 Pt Will Transfer Bed/Chair: w/ Moderate Assist, w/ Assist of 2 Pt Will Transfer Sit to Stand: w/ Moderate Assist, w/ Assist of 2 PLAN: Treatment Interventions: Mobility Training;Strengthening Plan Frequency: 5-7 Days per Week Continue bed mobility Sitting edge of bed - dynamic balance, seated activities Attempt sit to stand with walker vs slide board transfers - will have better idea of appropriate transfer over next few visits RECOMMENDATIONS: PT Discharge Recommendations: Inpatient Setting Equipment Recommendations: Too early to be determined Therapist: Ruth Abbott PT, DPT Date: 12/17/2017 * Nneka Thompson RD - 12/17/2017 1:20 PM CDT CLINICAL NUTRITION Clinical Nutrition Assessment Summary Nutrition Assessment of Patient: BMI Categories Adult: Obesity Class II: 35-39.9 Malnutrition Assessment: Adequately nourished prior to admission Current Oral Intake: NPO Estimated Calorie Needs: 2711-8098 (30-35 kcals/kg per DBW 65.8 kg ) Estimated Protein Needs: 99-132 (1.5-2 gm/kg per DBW 65.8kg) Oral Diet Order: NPO Beata Kaiser is a 52 y.o. 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 Pt on RA, yet remains NPO with NGT to suction. Pt having high NGT output of 1.8L over the past 24 hrs. Non-dilated bowel loops per KUB taken this am. Pt reports she was eating well [employer] and has had a stable weight. EMR weights over the past 2 weeks agree. Pt appears obese, no clear signs of muscle or fat wasting. RD will continue to monitor for return of bowel function and diet advancement. Recommendation: Recommend resuming maintenance IVFs while Pt is NPO, especially with high NGT losses. Consider D5-1/2NS-KCl to provide minimal kcals and to mimic gastric secretions lost. Pt has been NPO/CLD x 4 days, if Pt is unable to start a PO diet in 2-3 days, would consult NSS for TPN. Intervention / Plan: Will monitor for initiation of nutrition Will monitor GI function, labs, and weights Paged SICU team with Recs Nutrition Diagnosis: Nutrition Diagnosis: Increased nutrient needs, specify: (kcals/protein) Etiology: demands of wound healing Signs & Symptoms: Pt s/p hemipelvectomy Nutrition Diagnosis: Inadequate oral intake Etiology: related to possible post-op ileus Signs & Symptoms: Pt NPO with high NGT output Goals: Initiate nutrition Time Frame: Within 72 Hours Nneka Thompson MS, RD, LD, [facility] Pager [phone] * Gagan Dunlap, DO - 12/17/2017 11:57 AM CDT Formatting of this note may be different from the original. Anesthesiology Acute Pain Service Date of Service: 12/17/2017 Name: Beata Kaiser is a 52 y.o. female : 1965 MRN# : [id number] PROCEDURE: Procedure(s) with comments: JAMIL PELVECTOMY - CASE LENGTH 5 HOURS CYSTORRHAPHY AND BLADDER NECK REPAIR, CYSTOSCOPY, LEFT ILIAC EXPOSURE POD #: 3, PCEA day 2 ANALGESIA TECHNIQUE Epidural catheter: Bupi 0.125% ADJUNCT ANALGESIA MEDICATIONS dilaudid acetaminophen PO gabapentin TREATMENT PLAN Continue use of epidural for pain management and discontinue DIRECTOR PHARMACOLOGY and convert to dilaudid PRN. Bolused epidural with 1% lidocaine and increased concentration now that hemodynamically stable. Anesthesia Pain pager: [phone] Allergies Allergen Reactions Cephalexin SEE COMMENTS Face gets red, feels really hot Inpatient Medications Scheduled Meds: acetaminophen (TYLENOL) tablet 1,000 mg 1,000 mg Per NG tube Q6H* buPROPion (WELLBUTRIN) tablet 100 mg 100 mg Per NG tube TID busPIRone (BUSPAR) tablet 30 mg 30 mg Per NG tube BID clindamycin (CLEOCIN) 600 mg/D5W 50 mL IVPB 600 mg Intravenous Q8H* gabapentin (NEURONTIN) oral solution 900 mg 900 mg Per NG tube TID heparin (porcine) PF syringe 5,000 Units 5,000 Units Subcutaneous BID insulin aspart U-100 (NOVOLOG FLEXPEN) injection PEN 0-14 Units 0-14 Units Subcutaneous 5 X Day levothyroxine (SYNTHROID) tablet 175 mcg 175 mcg Per NG tube QDAY before breakfast Continuous Infusions: bupivacaine DIRECTOR PHARMACOLOGY 0.125% in NS 50mL epidural infusion syr PRN and Respiratory Meds:diphenhydrAMINE Q6H PRN OR diphenhydrAMINE Q6H PRN , HYDROmorphone (DILAUDID) injection Q2H PRN, hyoscyamine Q4H PRN, naloxone PRN , ondansetron (ZOFRAN) IV Q6H PRN Anticoagulants heparin (porcine) PF syringe 5,000 Units BID HPI Visual Analog Scale (VAS) (0-10 Scale) At rest: 7 Patient satisfied with pain control: Yes Side Effects: none EXAM Recent Vitals Vital Signs: 24 Hour Range BP: 122/73 (12/17 1099) Temp: 37.3 C (99.2 F) (12/17 0800) Pulse: 108 (12/17 1099) Respirations: 17 PER MINUTE (12/17 1099) SpO2: 97 % (12/17 1099) O2 Delivery: None (Room Air) (12/17 1099) SpO2 Pulse: 107 (12/17 1099) BP: (100-132)/(48-73) ABP: (106-143)/(50-64) Temp: [36.8 C (98.2 F)-37.3 C (99.2 F)] Pulse: [106-125] Respirations: [14 PER MINUTE-22 PER MINUTE] SpO2: [91 %-99 %] O2 Delivery: None (Room Air) Lab Results Component Value Date PLTCT 138 12/17/2017 WBC 12.2 12/17/2017 HGB 9.1 12/17/2017 HCT 26.7 12/17/2017 CR 0.57 12/17/2017 PTT 23.7 12/14/2017 INR 1.0 11/30/2017 Level of Consciousness: Awake/alert Neurologic Function Sensory block: Yes Motor: No Insertion Site: Site clean and nontender Associated attestation - Aimee Aiken MD - 12/17/2017 2:12 PM CDT ATTESTATION I personally observed the resident performing the E/M, discussed case with resident, and concur with resident documentation of history, physical assessment and treatment plan unless otherwise noted. Pain marginally controlled. Requiring intermittent doses of hydromorphone. Increased concentration of bupivacaine to provide a denser block for improved pain control. * Melba Forbes M.Div, B[facility] - 12/17/2017 11:30 AM CDT [employer] Note: Admit Date: 12/13/2017 [employer] attempted to meet with patient, but pt was sleeping and did not awaken to her name. No family members were present. Please page or use consult order if patient or family requests visit. [employer] will continue to follow. Date/Time: User: Pager: [phone] 12/17/2017 1:45 PM Melba Forbes M.Div [facility] PCU 2 PCU * Adrienne Zarate MD - 12/17/2017 9:35 AM CDT Formatting of this note may be different from the original. Subjective: No events overnight. Patient resting comfortably this morning. Continues to complain of pain despite epidural. Continues to have flatus. Objective: Blood pressure 127/66, pulse 118, temperature 37.3 C (99.2 F), height 162.6 cm (64"), weight 104.8 kg (231 lb 0.7 oz), SpO2 95 %. General: AAOx3, NAD Cardiac: tachycardic Respirations: Unlabored Extremities: LLE hemipelvectomy, dressings with moderate serosanguinous drainage posteriorly Post-op Drains: (24 hours) MANNY: 130 ml Recent Labs 12/14/17 1842 PTT 23.7 CBC w/Diff Lab Results Component Value Date/Time WBC 12.2 (H) 12/17/2017 03:04 AM HGB 9.1 (L) 12/17/2017 03:04 AM HCT 26.7 (L) 12/17/2017 03:04 AM PLTCT 138 (L) 12/17/2017 03:04 AM Basic Metabolic Profile Lab Results Component Value Date/Time NA 141 12/17/2017 03:04 AM K 3.9 12/17/2017 03:04 AM CL 108 12/17/2017 03:04 AM CO2 25 12/17/2017 03:04 AM GAP 8 12/17/2017 03:04 AM Lab Results Component Value Date/Time BUN 17 12/17/2017 03:04 AM CR 0.57 12/17/2017 03:04 AM GLU 137 (H) 12/17/2017 03:04 AM A/P: 52 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 -NPO, NG tube -Clinda until drain comes out -Melchor catheter x4 wks minimum -Maintain dressings, ortho to manage -Maintain MANNY drain- resume bulb suction today -SICU consult -Anesthesia pain consult- anesthesia to manage pain while epidural in place -SQ heparin for DVT ppx while epidural in place -Please do not leave flat for extended periods of time, would like patient to lay onto her right side as much as possible for swelling management of L hemipelvectomy -Acute blood loss anemia- Hgb 9.1, stable, will continue to monitor Dispo: continue ICU care Adrienne Zarate MD Pager [phone] * Casa George MD - 12/17/2017 8:43 AM CDT Formatting of this note may be different from the original. Surgical Vascular Surgery Progress Note A/P: 52 yo female w/chondrosarcoma s/p left hemipelvectomy 12/14 -Hb stable, BP improved -Cr normalized -vascular surgery will sign off, please page [phone] with questions -discussed with Dr. Tirado Patient Active Problem List Diagnosis Date Noted Hemorrhagic shock (HCC) 12/16/2017 Metabolic acidosis 12/14/2017 Acute blood loss as cause of postoperative anemia 12/14/2017 Depression 12/14/2017 Anxiety 12/14/2017 DM (diabetes mellitus) (HCC) 12/14/2017 Hypothyroidism 12/14/2017 Pelvic mass in female 12/13/2017 Pelvic mass 11/30/2017 Mass 11/24/2017 Chondrosarcoma (HCC) 11/24/2017 S: ALE. C/o some pain this am. Pt somnolent. O: BP: 126/61 (12/18 799) Temp: 37.3 C (99.2 F) (12/18 799) Pulse: 117 (12/18 799) Respirations: 22 PER MINUTE (12/18 799) SpO2: 96 % (12/18 799) O2 Delivery: None (Room Air) (12/18 799) SpO2 Pulse: 114 (12/17 599) Physical Exam: GEN: A&O. NAD CV: tachycardia PULM: Non-labored ABD: Soft, non-distended NEURO: Grossly intact INCISION: SS drainage, SS MANNY output Casa George MD Pager [phone] Associated attestation - Anand Tirado MD - 12/17/2017 4:59 PM CDT Formatting of this note may be different from the original. ATTESTATION I personally performed the banuelos portions of the E/M visit, discussed case with resident and concur with resident documentation of history, physical exam, assessment, and treatment plan unless otherwise noted. She has some incisional and general pain. Anxious to get NG out. Denies any nausea. Hgb stable. Continue supportive care. Staff name: Anand Tirado MD Date: 12/17/2017 * Valerie Couch MD - 12/17/2017 6:37 AM CDT Formatting of this note may be different from the original. Intensive Care Surgery Progress Note Admission Date:12/13/2017 LOS: 4 days Assessment: Beata Kaiser is a 52 y.o. 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 anesthesia pain on board. -- tylenol -- epidural -- gabapentin -- dilaudid IV depression -- Wellbutrin -- buspar CV Hypotension improved. SBP: 100-120s. tachycardic HR 100s-120s. Continue to monitor Pulm Stable on RA Pulmonary toilet, encourage IS GI/FEN NPO NGT: 1.8L. Will get KUB pepcid Zofran prn nausea Monitor and replace lytes prn Urology consulted: - Maintain melchor catheter x4 weeks - Levsin PRN for bladder spasms UOP 1.8L BUN/CR normalized Continue to monitor Heme/ID Acute blood loss anemia -- Hgb 9.1. Stable. Received 3units PRBCs. Continue to trend serially. Optimize fluid balance. Monitor stools for signs of occult GI bleeding. -- TEG normal Thrombocytopenia- stable Leukocytosis 12.2 Afebrile -- clinda until drain out Endo DM MDCF insulin Hypothyroidism synthroid Monitor and treat prn MS PT/OT Ortho primary: -NPO, NG tube -Clinda until drain comes out -Melchor catheter x4 wks minimum -Maintain dressings, ortho to manage -Please do not leave flat for extended periods of time, would like patient to lay onto her right side as much as possible MANNY drain: 110, monitor closely. bulb suction PPx SCDs, heparin Disp - ICU SW/CM following for discharge planning needs. Patient seen and discussed with Dr. Couch Subjective: Having pain this AM. Passing gas, no BMs. BP much improved Objective: Current Vitals: Vitals 24hr Range: Hemodynamics BP: 123/69 (12/17 0500) ABP: 116/64 (12/17 0100) Temp: 37.3 C (99.1 F) (12/17 0400) Pulse: 114 (12/17 599) Respirations: 16 PER MINUTE (12/17 599) SpO2: 99 % (12/17 599) O2 Delivery: None (Room Air) (12/17 599) BP: (84-130)/(47-69) ABP: (92-143)/(43-64) Temp: [36.8 C (98.2 F)-37.3 C (99.1 F)] Pulse: [106-125] Respirations: [13 PER MINUTE-21 PER MINUTE] SpO2: [91 %-100 %] O2 Delivery: None (Room Air) Vitals: 03/26/18 1115 Weight: 104.8 kg (231 lb 0.7 oz) Physical Exam: Gen: AAOx3 Cardio: Tachycardic, regular rhythm Pulm: unlabored breathing Abd: Soft, obese, nondistended, nontender Ext: surgically removed LLE. Dressing with some saturation. MANNY drain with SS output Neuro: No focal neuro deficits Intake & Output: Intake/Output Summary (Last 24 hours) at 12/17/17 0637 Last data filed at 12/17/17 0600 Gross per 24 hour Intake 2491 ml Output 3817 ml Net -1326 ml Labs: Hematology Chemistry Glucose Lab Results Component Value Date/Time WBC 12.2 (H) 12/17/2017 03:04 AM HGB 9.1 (L) 12/17/2017 03:04 AM HCT 26.7 (L) 12/17/2017 03:04 AM PLTCT 138 (L) 12/17/2017 03:04 AM APTT Date/Time Value Ref Range Status 12/14/2017 06:42 PM 23.7 21.0 - 39.0 SEC Final 12/14/2017 06:12 AM 29.3 21.0 - 39.0 SEC Final INR Date/Time Value Ref Range Status 11/30/2017 08:15 AM 1.0 0.8 - 1.2 Final Lab Results Component Value Date PHART 7.33 12/16/2017 PCO2A 41 12/16/2017 PO2ART 84 12/16/2017 HCO3A 20.9 12/16/2017 BASEDEFA 4.2 12/16/2017 Lab Results Component Value Date/Time NA 141 12/17/2017 03:04 AM K 3.9 12/17/2017 03:04 AM CL 108 12/17/2017 03:04 AM CO2 25 12/17/2017 03:04 AM BUN 17 12/17/2017 03:04 AM CR 0.57 12/17/2017 03:04 AM GFR >60 12/17/2017 03:04 AM GLU 137 (H) 12/17/2017 03:04 AM CA 8.3 (L) 12/17/2017 03:04 AM PO4 2.0 12/17/2017 03:04 AM ALBUMIN 2.9 (L) 12/15/2017 10:00 PM TOTPROT 4.8 (L) 12/15/2017 10:00 PM ALKPHOS 59 12/15/2017 10:00 PM AST 33 12/15/2017 10:00 PM ALT 15 12/15/2017 10:00 PM TOTBILI 0.5 12/15/2017 10:00 PM Glucose, POC Date/Time Value Ref Range Status 12/17/2017 03:04 AM 135 (H) 70 - 100 MG/DL Final 12/16/2017 08:26 PM 131 (H) 70 - 100 MG/DL Final 12/16/2017 05:01 PM 165 (H) 70 - 100 MG/DL Final 12/16/2017 12:09 PM 181 (H) 70 - 100 MG/DL Final 12/16/2017 09:39 AM 171 (H) 70 - 100 MG/DL Final 12/16/2017 03:06 AM 136 (H) 70 - 100 MG/DL Final 12/15/2017 08:35 PM 272 (H) 70 - 100 MG/DL Final 12/15/2017 05:32 PM 255 (H) 70 - 100 MG/DL Final 12/15/2017 08:54 AM 177 (H) 70 - 100 MG/DL Final 12/15/2017 06:45 AM 206 (H) 70 - 100 MG/DL Final Medications: gtts bupivacaine DIRECTOR PHARMACOLOGY 0.0625% in NS 50mL epidural infusion syr Scheduled acetaminophen (TYLENOL) tablet 1,000 mg 1,000 mg Per NG tube Q6H* buPROPion (WELLBUTRIN) tablet 100 mg 100 mg Per NG tube TID busPIRone (BUSPAR) tablet 30 mg 30 mg Per NG tube BID clindamycin (CLEOCIN) 600 mg/D5W 50 mL IVPB 600 mg Intravenous Q8H* gabapentin (NEURONTIN) oral solution 600 mg 600 mg Per NG tube TID heparin (porcine) PF syringe 5,000 Units 5,000 Units Subcutaneous BID insulin aspart U-100 (NOVOLOG FLEXPEN) injection PEN 0-14 Units 0-14 Units Subcutaneous 5 X Day levothyroxine (SYNTHROID) tablet 175 mcg 175 mcg Per NG tube QDAY before breakfast sodium phosphate 16 mmol in dextrose 5% (D5W) 250 mL IVPB 16 mmol Intravenous ONCE PRN diphenhydrAMINE Q6H PRN OR diphenhydrAMINE Q6H PRN, HYDROmorphone (DILAUDID ) injection Q2H PRN, hyoscyamine Q4H PRN, naloxone PRN, ondansetron (ZOFRAN) IV Q6H PRN Harry Moore MD ATTESTATION.. I have seen, personally fully evaluated, and discussed patient with the resident. I agree with the objective findings and agree with the plan of care as documented by the resident with the exceptions noted. The patient is critically ill with the above assessment. I spent 30 minutes (excluding time spent performing or supervising any procedures) providing and personally directing critical care services including the outlined plan. staff name..Valerie Couch MD date..12/18/2017 * Joanne Abernathy, OT - 12/16/2017 4:28 PM CDT OCCUPATIONAL THERAPY OT evaluation held this date due to issues with bleeding from incisional site, and ongoing work to manage Hgb, BP and pain. OT will continue to follow. Joanne Abernathy OTR/L [id number] * America Maher - 12/16/2017 12:00 PM CDT Pt. alert and oriented x 4. Lungs CTA, RA. HR ~100s. BP 110s. Melchor output ~75/ hr. Pt. turned to supine, tolerated well, no excessive drainage with turn. MANNY to gravity drainage, minimal output, not enough to change bulb since the AM, 0900, when bulb was to suction. Current gtts: LR 100, Epidural * Monica Sal, SANJAY - 12/16/2017 9:00 AM CDT Pt turned for bath and to assess epidural site. Pt started bleeding profusely from incision at MANNY site. Trauma notified. Ortho stated to have MANNY to bulb suction. Notified of over 300 out dark blood from MANNY in addition to excessive bleeding from incision. Trauma at bedside, orders to put bulb suction back to gravity drainage and position patient up on right side, monitor bleeding from incisions. VSS, BP and HR unchanged with bleeding. * Parvez Mejia MD - 12/16/2017 8:31 AM CDT Formatting of this note may be different from the original. Anesthesiology Acute Pain Service Date of Service: 12/16/2017 Name: Beata Kaiser is a 52 y.o. female : 1965 MRN# : [id number] PROCEDURE: Procedure(s) with comments: JAMIL PELVECTOMY - CASE LENGTH 5 HOURS CYSTORRHAPHY AND BLADDER NECK REPAIR, CYSTOSCOPY, LEFT ILIAC EXPOSURE POD #: 2, PCEA day 1 ANALGESIA TECHNIQUE Epidural catheter: bupivacaine 0.0625% ADJUNCT ANALGESIA MEDICATIONS dilaudid acetaminophen PO gabapentin TREATMENT PLAN Continue use of epidural for pain management and discontinue DIRECTOR PHARMACOLOGY and convert to dilaudid PRN Anesthesia Pain pager: [phone] Allergies Allergen Reactions Cephalexin SEE COMMENTS Face gets red, feels really hot Inpatient Medications Scheduled Meds: acetaminophen (TYLENOL) tablet 1,000 mg 1,000 mg Per NG tube Q6H* buPROPion (WELLBUTRIN) tablet 100 mg 100 mg Per NG tube TID busPIRone (BUSPAR) tablet 30 mg 30 mg Per NG tube BID clindamycin (CLEOCIN) 600 mg/D5W 50 mL IVPB 600 mg Intravenous Q8H* gabapentin (NEURONTIN) oral solution 600 mg 600 mg Per NG tube TID insulin aspart U-100 (NOVOLOG FLEXPEN) injection PEN 0-14 Units 0-14 Units Subcutaneous 5 X Day levothyroxine (SYNTHROID) tablet 175 mcg 175 mcg Per NG tube QDAY before breakfast magnesium sulfate 1 g/D5W 100 mL IVPB 1 g Intravenous Q1H X 2DO SODIUM CHLORIDE 0.9 % IV SOLP (Cabinet Override) NOW Continuous Infusions: bupivacaine DIRECTOR PHARMACOLOGY 0.0625% in NS 50mL epidural infusion syr lactated ringers infusion Stopped (12/16/17 0321) PRN and Respiratory Meds:diphenhydrAMINE Q6H PRN OR diphenhydrAMINE Q6H PRN , HYDROmorphone (DILAUDID) injection Q2H PRN, hyoscyamine Q4H PRN, naloxone PRN , ondansetron (ZOFRAN) IV Q6H PRN Anticoagulants HPI Visual Analog Scale (VAS) (0-10 Scale) At rest: 5 Patient satisfied with pain control: Yes Side Effects: none EXAM Recent Vitals Vital Signs: 24 Hour Range BP: 103/56 (12/16 699) Temp: 36.6 C (97.9 F) (12/16 0400) Pulse: 115 (12/16 699) Respirations: 18 PER MINUTE (12/16 699) SpO2: 100 % (12/16 699) O2 Delivery: Nasal Cannula (12/16 699) SpO2 Pulse: 115 (12/16 699) BP: (76-122)/(36-103) ABP: (57-124)/(39-86) Temp: [36.4 C (97.5 F)-36.8 C (98.2 F)] Pulse: [109-158] Respirations: [0 PER MINUTE-21 PER MINUTE] SpO2: [92 %-100 %] O2 Delivery: Nasal Cannula Lab Results Component Value Date PLTCT 134 12/16/2017 WBC 14.6 12/16/2017 HGB 9.3 12/16/2017 HCT 27.6 12/16/2017 CR 1.40 12/16/2017 PTT 23.7 12/14/2017 INR 1.0 11/30/2017 Level of Consciousness: Awake/alert Neurologic Function Sensory block: Yes Motor: No Insertion Site: Site clean and nontender Associated attestation - Aimee Aiken MD - 12/16/2017 4:41 PM CDT ATTESTATION I personally observed the resident performing the E/M, discussed case with resident, and concur with resident documentation of history, physical assessment and treatment plan unless otherwise noted. * Casa George MD - 12/16/2017 8:16 AM CDT Formatting of this note may be different from the original. Surgical Vascular Surgery Progress Note A/P: 52 yo female w/chondrosarcoma s/p left hemipelvectomy 12/14 -Hb stable, BP labile but fluid responsive -SUSI with marginal UOP intermittently -will follow -discussed with Dr. Tirado Patient Active Problem List Diagnosis Date Noted Metabolic acidosis 12/14/2017 Acute blood loss as cause of postoperative anemia 12/14/2017 Depression 12/14/2017 Anxiety 12/14/2017 DM (diabetes mellitus) (HCC) 12/14/2017 Hypothyroidism 12/14/2017 Pelvic mass in female 12/13/2017 Pelvic mass 11/30/2017 Mass 11/24/2017 Chondrosarcoma (HCC) 11/24/2017 S: Pain controlled. Patient responding appropriately. O: BP: 103/56 (12/16 699) Temp: 36.6 C (97.9 F) (12/16 0400) Pulse: 115 (12/16 699) Respirations: 18 PER MINUTE (12/16 699) SpO2: 100 % (12/16 699) O2 Delivery: Nasal Cannula (12/16 699) SpO2 Pulse: 115 (12/16 699) Physical Exam: GEN: A&O. NAD CV: tachycardia PULM: Non-labored ABD: Soft, non-distended NEURO: Grossly intact INCISION: SS drainage, dark SS MANNY output--thinning compared to yesterday Casa George MD Pager [phone] Associated attestation - Anand Tirado MD - 12/16/2017 8:12 PM CDT Formatting of this note may be different from the original. ATTESTATION I personally performed the banuelos portions of the E/M visit, discussed case with resident and concur with resident documentation of history, physical exam, assessment, and treatment plan unless otherwise noted. She has expected incisional pain. Hgb more stable. Cr improved over day today. Continue supportive care. Staff name: Anand Tirado MD Date: 12/16/2017 * Adrienne Zarate MD - 12/16/2017 8:13 AM CDT Formatting of this note may be different from the original. Subjective: Increased bleeding yesterday afternoon. Sleeping this am. Pain much better controlled with epidural and DIRECTOR PHARMACOLOGY. Complains of a sore throat and some grogginess. Continued to pas gas yesterday but none overnight. Objective: Blood pressure 103/56, pulse 115, temperature 36.6 C (97.9 F), height 162.6 cm (64"), weight 104.8 kg (231 lb 0.7 oz), SpO2 100 %. General: AAOx3, NAD Cardiac: tachycardic Respirations: Unlabored Extremities: LLE hemipelvectomy, dressings with moderate serosanguinous drainage posteriorly this am Post-op Drains: (24 hours) MANNY: removed from suction overnight due to ongoing blood loss Recent Labs 12/14/17 1842 PTT 23.7 CBC w/Diff Lab Results Component Value Date/Time WBC 14.6 (H) 12/16/2017 03:05 AM HGB 9.3 (L) 12/16/2017 03:05 AM HCT 27.6 (L) 12/16/2017 03:05 AM PLTCT 134 (L) 12/16/2017 03:05 AM Basic Metabolic Profile Lab Results Component Value Date/Time NA 136 (L) 12/16/2017 03:05 AM K 4.7 12/16/2017 03:05 AM CL 110 12/16/2017 03:05 AM CO2 20 (L) 12/16/2017 03:05 AM GAP 6 12/16/2017 03:05 AM Lab Results Component Value Date/Time BUN 26 (H) 12/16/2017 03:05 AM CR 1.40 (H) 12/16/2017 03:05 AM GLU 218 (H) 12/16/2017 03:05 AM A/P: 52 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 -NPO, NG tube -Clinda until drain comes out -Melchor catheter x4 wks minimum -Maintain dressings, ortho to manage -Maintain MANNY drain- resume bulb suction today -SICU consult -Anesthesia pain consult- anesthesia to manage pain while epidural in place -SQ heparin for DVT ppx while epidural in place -Please do not leave flat for extended periods of time, would like patient to lay onto her right side as much as possible for swelling management of L hemipelvectomy -Acute blood loss anemia- Hgb 9.3, received 3 u pRBCs yesterday, will continue to closely monitor Dispo: continue ICU care Adrienne Zarate MD Pager [phone] * Valerie Couch MD - 12/16/2017 6:52 AM CDT Formatting of this note may be different from the original. Intensive Care Surgery Progress Note Admission Date:12/13/2017 LOS: 3 days Assessment: Beata Kaiser is a 52 y.o. 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 anesthesia pain on board. -- tylenol -- epidural -- PNC -- gabapentin -- dilaudid IV depression -- Wellbutrin -- buspar CV Mildly hypotensive . tachycardic HR 100s- 120s. Received 3u PRBCs so far, 5L LR Placed arterial line Continue to monitor Pulm Stable on 2L Pulmonary toilet, encourage IS GI/FEN EMR-pjshdvhmmems-Gbx 2.9, ARBF NGT: 1L pepcid Zofran prn nausea Monitor and replace lytes prn Urology consulted: - Maintain melchor catheter x4 weeks - Levsin PRN for bladder spasms UOP 1L Cr increasing 1.4, pre-renal, bolusing PRN Continue to monitor Heme/ID Acute blood loss anemia -- Hgb 9.3. Stable. Received 3units PRBCs. Continue to trend serially. Optimize fluid balance. Monitor stools for signs of occult GI bleeding. -- TEG normal Leukocytosis 14.6 Afebrile -- clinda until drain out Endo DM MDCF insulin Hypothyroidism synthroid Monitor and treat prn MS PT/OT Ortho primary: -NPO, NG tube -Gentamycin complete, Clinda until drain comes out -Melchor catheter x4 wks minimum -Maintain dressings, ortho to manage -MANNY drain to bulb suction -PNC sciatic nerve- anesthesia to manage pain while PNC in place -Please do not leave flat for extended periods of time, would like patient to lay onto her right side as much as possible MANNY drain: 500+, monitor closely PPx SCDs, heparin Disp - ICU SW/CM following for discharge planning needs. Patient seen and discussed with Dr. Couch Subjective: Pain better controlled better this AM. Feels fatigued. bolused 5L, 1u overnight Objective: Current Vitals: Vitals 24hr Range: Hemodynamics BP: 97/52 (12/16 599) ABP: 92/45 (12/16 599) Temp: 36.6 C (97.9 F) (12/16 0400) Pulse: 109 (12/16 599) Respirations: 10 PER MINUTE (12/16 599) SpO2: 99 % (12/16 599) O2 Delivery: Nasal Cannula (12/16 599) BP: (76-122)/(36-103) ABP: (57-124)/(39-86) Temp: [36.4 C (97.5 F)-36.9 C (98.5 F)] Pulse: [109-158] Respirations: [0 PER MINUTE-21 PER MINUTE] SpO2: [92 %-100 %] O2 Delivery: Nasal Cannula Vitals: 12/13/17 1115 Weight: 104.8 kg (231 lb 0.7 oz) Physical Exam: Gen: AAOx3 Cardio: Tachycardic, regular rhythm Pulm: unlabored breathing Abd: Soft, obese, nondistended, nontender Ext: surgically removed LLE. Dressing intact. C/d/i. MANNY drain with SS output Neuro: No focal neuro deficits Intake & Output: Intake/Output Summary (Last 24 hours) at 12/16/17 0652 Last data filed at 12/16/17 0600 Gross per 24 hour Intake 9586.63 ml Output 2997 ml Net 6589.63 ml Labs: Hematology Chemistry Glucose Lab Results Component Value Date/Time WBC 14.6 (H) 12/16/2017 03:05 AM HGB 9.3 (L) 12/16/2017 03:05 AM HCT 27.6 (L) 12/16/2017 03:05 AM PLTCT 134 (L) 12/16/2017 03:05 AM APTT Date/Time Value Ref Range Status 12/14/2017 06:42 PM 23.7 21.0 - 39.0 SEC Final 12/14/2017 06:12 AM 29.3 21.0 - 39.0 SEC Final INR Date/Time Value Ref Range Status 11/30/2017 08:15 AM 1.0 0.8 - 1.2 Final Lab Results Component Value Date PHART 7.33 12/16/2017 PCO2A 41 12/16/2017 PO2ART 84 12/16/2017 HCO3A 20.9 12/16/2017 BASEDEFA 4.2 12/16/2017 Lab Results Component Value Date/Time NA 136 (L) 12/16/2017 03:05 AM K 4.7 12/16/2017 03:05 AM CL 110 12/16/2017 03:05 AM CO2 20 (L) 12/16/2017 03:05 AM BUN 26 (H) 12/16/2017 03:05 AM CR 1.40 (H) 12/16/2017 03:05 AM GFR 39 (L) 12/16/2017 03:05 AM GLU 218 (H) 12/16/2017 03:05 AM CA 7.9 (L) 12/16/2017 03:05 AM PO4 3.6 12/16/2017 03:05 AM ALBUMIN 2.9 (L) 12/15/2017 10:00 PM TOTPROT 4.8 (L) 12/15/2017 10:00 PM ALKPHOS 59 12/15/2017 10:00 PM AST 33 12/15/2017 10:00 PM ALT 15 12/15/2017 10:00 PM TOTBILI 0.5 12/15/2017 10:00 PM Glucose, POC Date/Time Value Ref Range Status 12/16/2017 03:06 AM 136 (H) 70 - 100 MG/DL Final 12/15/2017 08:35 PM 272 (H) 70 - 100 MG/DL Final 12/15/2017 05:32 PM 255 (H) 70 - 100 MG/DL Final 12/15/2017 08:54 AM 177 (H) 70 - 100 MG/DL Final 12/15/2017 06:45 AM 206 (H) 70 - 100 MG/DL Final 12/14/2017 09:22 PM 199 (H) 70 - 100 MG/DL Final 12/03/2017 07:42 AM 145 (H) 70 - 100 MG/DL Final 12/02/2017 09:50 PM 206 (H) 70 - 100 MG/DL Final 12/02/2017 06:20 PM 196 (H) 70 - 100 MG/DL Final 12/02/2017 01:36 PM 147 (H) 70 - 100 MG/DL Final Medications: gtts bupivacaine DIRECTOR PHARMACOLOGY 0.0625% in NS 50mL epidural infusion syr HYDROmorphone (DILAUDID) DIRECTOR PHARMACOLOGY 11 mg/NS 55mL infusion syr (std conc)(premade ) lactated ringers infusion Stopped (12/16/17 0321) Scheduled acetaminophen (TYLENOL) tablet 1,000 mg 1,000 mg Per NG tube Q6H* buPROPion (WELLBUTRIN) tablet 100 mg 100 mg Per NG tube TID busPIRone (BUSPAR) tablet 30 mg 30 mg Per NG tube BID clindamycin (CLEOCIN) 600 mg/D5W 50 mL IVPB 600 mg Intravenous Q8H* gabapentin (NEURONTIN) oral solution 600 mg 600 mg Per NG tube TID insulin aspart U-100 (NOVOLOG FLEXPEN) injection PEN 0-14 Units 0-14 Units Subcutaneous 5 X Day levothyroxine (SYNTHROID) tablet 175 mcg 175 mcg Per NG tube QDAY before breakfast SODIUM CHLORIDE 0.9 % IV SOLP (Cabinet Override) NOW PRN diphenhydrAMINE Q6H PRN OR diphenhydrAMINE Q6H PRN, hyoscyamine Q4H PRN, naloxone PRN, ondansetron (ZOFRAN) IV Q6H PRN Harry Moore MD ATTESTATION.. I have seen, personally fully evaluated, and discussed patient with the resident. I agree with the objective findings and agree with the plan of care as documented by the resident with the exceptions noted. The patient is critically ill with the above assessment. I spent 30 minutes (excluding time spent performing or supervising any procedures) providing and personally directing critical care services including the outlined plan. staff name..Valerie Couch MD date..12/18/2017 * Vania Hay MD - 12/15/2017 11:35 PM CDT Formatting of this note may be different from the original. Intensive Care Surgery Progress Note Admission Date:12/13/2017 LOS: 2 days Assessment: Beata Kaiser is a 52 y.o. 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 anesthesia pain on board. -- tylenol -- epidural -- PNC -- gabapentin -- dilaudid DIRECTOR PHARMACOLOGY depression -- Wellbutrin -- buspar CV Mildly hypotensive. tachycardic HR 120-130s. Received 3u PRBCs so far, 1L LR Placed arterial line this evening Continue to monitor Pulm Stable on 2L Pulmonary toilet, encourage IS GI/FEN NPO, NGT pepcid Zofran prn nausea Monitor and replace lytes prn Urology consulted: - Maintain melchor catheter x4 weeks - Levsin PRN for bladder spasms UOP adequate Cr increasing, pre-renal, bolusing PRN Continue to monitor Heme/ID Acute blood loss anemia -- Hgb 9.9. Received 3units PRBCs. Continue to trend serially. Optimize fluid balance. Monitor stools for signs of occult GI bleeding. -- TEG nnormal Leukocytosis Afebrile -- clinda, gent Endo DM MDCF insulin Hypothyroidism synthroid Monitor and treat prn MS PT/OT Ortho primary: -NPO, NG tube -Gentamycin x24 hours, Clinda until drain comes out -Melchor catheter x4 wks minimum -Maintain dressings, ortho to manage -MANNY drain to bulb suction -PNC sciatic nerve- anesthesia to manage pain while PNC in place -Please do not leave flat for extended periods of time, would like patient to lay onto her right side as much as possible MANNY drain: 500, monitor closely PPx SCDs, heparin Disp - ICU SW/CM following for discharge planning needs. Patient seen and discussed with Dr. Hurst Subjective: Pain better controlled. No nausea or emesis. Feels fatigued. Objective: Current Vitals: Vitals 24hr Range: Hemodynamics BP: 99/46 (12/15 2299) ABP: 96/42 (12/15 2299) Temp: 36.6 C (97.8 F) (12/16 2251) Pulse: 124 (12/15 2299) Respirations: 11 PER MINUTE (12/15 2299) SpO2: 99 % (12/15 2299) O2 Delivery: Nasal Cannula (12/15 2299) BP: (76-134)/(36-103) ABP: (57-131)/(39-88) Temp: [36.4 C (97.5 F)-36.9 C (98.5 F)] Pulse: [122-158] Respirations: [0 PER MINUTE-21 PER MINUTE] SpO2: [92 %-100 %] O2 Delivery: Nasal Cannula Vitals: 12/13/17 1115 Weight: 104.8 kg (231 lb 0.7 oz) Physical Exam: Gen: AAOx3, Cardio: Tachycardic, regular rhythm Pulm: unlabored breathing Abd: Soft, obese, nondistended, nontender Ext: surgically removed LLE. Dressing intact with no strikethrough. MANNY drain with serosanguinous output Neuro: No focal neuro deficits Intake & Output: Intake/Output Summary (Last 24 hours) at 12/15/17 2335 Last data filed at 12/15/17 2300 Gross per 24 hour Intake 7409.63 ml Output 3635 ml Net 3774.63 ml Labs: Hematology Chemistry Glucose Lab Results Component Value Date/Time WBC 19.6 (H) 12/15/2017 10:00 PM HGB 9.9 (L) 12/15/2017 10:00 PM HCT 28.9 (L) 12/15/2017 10:00 PM PLTCT 190 12/15/2017 10:00 PM APTT Date/Time Value Ref Range Status 12/14/2017 06:42 PM 23.7 21.0 - 39.0 SEC Final 12/14/2017 06:12 AM 29.3 21.0 - 39.0 SEC Final INR Date/Time Value Ref Range Status 11/30/2017 08:15 AM 1.0 0.8 - 1.2 Final Lab Results Component Value Date PHART 7.31 12/15/2017 PCO2A 38 12/15/2017 PO2ART 95 12/15/2017 HCO3A 19.2 12/15/2017 BASEDEFA 6.4 12/15/2017 Lab Results Component Value Date/Time NA 137 12/15/2017 10:00 PM K 4.7 12/15/2017 10:00 PM CL 109 12/15/2017 10:00 PM CO2 18 (L) 12/15/2017 10:00 PM BUN 26 (H) 12/15/2017 10:00 PM CR 1.49 (H) 12/15/2017 10:00 PM GFR 37 (L) 12/15/2017 10:00 PM GLU 287 (H) 12/15/2017 10:00 PM CA 8.3 (L) 12/15/2017 10:00 PM PO4 4.1 (H) 12/15/2017 10:00 PM ALBUMIN 2.9 (L) 12/15/2017 10:00 PM TOTPROT 4.8 (L) 12/15/2017 10:00 PM ALKPHOS 59 12/15/2017 10:00 PM AST 33 12/15/2017 10:00 PM ALT 15 12/15/2017 10:00 PM TOTBILI 0.5 12/15/2017 10:00 PM Glucose, POC Date/Time Value Ref Range Status 12/15/2017 08:35 PM 272 (H) 70 - 100 MG/DL Final 12/15/2017 05:32 PM 255 (H) 70 - 100 MG/DL Final 12/15/2017 08:54 AM 177 (H) 70 - 100 MG/DL Final 12/15/2017 06:45 AM 206 (H) 70 - 100 MG/DL Final 12/14/2017 09:22 PM 199 (H) 70 - 100 MG/DL Final 12/03/2017 07:42 AM 145 (H) 70 - 100 MG/DL Final 12/02/2017 09:50 PM 206 (H) 70 - 100 MG/DL Final 12/02/2017 06:20 PM 196 (H) 70 - 100 MG/DL Final 12/02/2017 01:36 PM 147 (H) 70 - 100 MG/DL Final 12/02/2017 08:29 AM 178 (H) 70 - 100 MG/DL Final Medications: gtts bupivacaine DIRECTOR PHARMACOLOGY 0.0625% in NS 50mL epidural infusion syr HYDROmorphone (DILAUDID) DIRECTOR PHARMACOLOGY 11 mg/NS 55mL infusion syr (std conc)(premade ) lactated ringers infusion 100 mL/hr at 12/15/17 1249 Scheduled acetaminophen (TYLENOL) tablet 1,000 mg 1,000 mg Per NG tube Q6H* buPROPion (WELLBUTRIN) tablet 100 mg 100 mg Per NG tube TID busPIRone (BUSPAR) tablet 30 mg 30 mg Per NG tube BID clindamycin (CLEOCIN) 600 mg/D5W 50 mL IVPB 600 mg Intravenous Q8H* gabapentin (NEURONTIN) oral solution 600 mg 600 mg Per NG tube TID insulin aspart U-100 (NOVOLOG FLEXPEN) injection PEN 0-14 Units 0-14 Units Subcutaneous 5 X Day levothyroxine (SYNTHROID) tablet 175 mcg 175 mcg Per NG tube QDAY before breakfast SODIUM CHLORIDE 0.9 % IV SOLP (Cabinet Override) NOW PRN diphenhydrAMINE Q6H PRN OR diphenhydrAMINE Q6H PRN, hyoscyamine Q4H PRN, naloxone PRN, ondansetron (ZOFRAN) IV Q6H PRN Vaina Hay MD [id number] Associated attestation - Harris Hurst MD - 12/16/2017 12:33 PM CDT Formatting of this note may be different from the original. ATTESTATION Principal Problem: Pelvic mass Active Problems: Pelvic mass in female Metabolic acidosis Acute blood loss as cause of postoperative anemia Depression Anxiety DM (diabetes mellitus) (HCC) Hypothyroidism hemorrhagic shock I have personally examined, fully evaluated and discussed patient with the resident physician, nursing, RT, pharmacy and hospice care consultant staff. I directly supervised the resident physician performing the E/M service. I agree with the objective findings and agree with the plan of care as documented by the resident physician with any exceptions, as noted. The patient is critically ill with issues noted in the Problem List above. I spent 45 minutes (excluding time spent performing or supervising any procedures) providing and personally directing critical care services including invasive cardiac monitoring, pressor management, vent mgt, IV Abx mgt, nutritional support, mgt sedation/ pain control, mgt fluids/electrolytes, reviewing labs/xrays, palliative/goals of care discussion, highly complex medical decision making and coordination of care. Plan/Medical Decision Making: This patient remains critically ill in the postoperative period with ongoing bleeding and acute blood loss anemia. She has had in excess of 1 L of drain output over the last 24 hours. She has required multiple blood product transfusions. Her TEG does not show evidence of coagulopathy and thus I do not believe that this is medical bleeding but rather surgical site bleeding. She is markedly hypotensive but remains volume responsive. I have discussed her condition and my concerns about surgical bleeding with the orthopedics team. At this point, there is no plan for surgical reexploration so I will continue to resuscitate her with fluid and blood products as indicated with static and dynamic endpoints of resuscitation. She remains at high risk for VT E prophylaxis but I think we will have to hold any pharmacologic DVT prophylaxis until her bleeding is controlled. I would continue with bowel rest until she is more surgically stable. Early enteral nutrition will be vital however to prevent negative nitrogen balance and promote wound healing. Her pain management appears to be adequate, especially in light of the extent of her operation. I would recommend aggressive pulmonary toilet to prevent atelectasis and pneumonia. Overall, her condition is critical. Harris Hurst MD PhD GALA FACS Surgical Critical Care Pager [phone] Date: 12/16/2017 * Casa George MD - 12/15/2017 6:27 PM CDT Formatting of this note may be different from the original. 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 Brooks Patient Active Problem List Diagnosis Date Noted Metabolic acidosis 12/14/2017 Acute blood loss as cause of postoperative anemia 12/14/2017 Depression 12/14/2017 Anxiety 12/14/2017 DM (diabetes mellitus) (HCC) 12/14/2017 Hypothyroidism 12/14/2017 Pelvic mass in female 12/13/2017 Pelvic mass 11/30/2017 Mass 11/24/2017 Chondrosarcoma (HCC) 11/24/2017 S: Patient responding appropriately. States she is fatigued. Denies nausea. O: BP: 91/52 (12/15 1800) Temp: 36.4 C (97.5 F) (12/15 1624) Pulse: 146 (12/15 1800) Respirations: 15 PER MINUTE (12/15 1800) SpO2: 97 % (12/15 1800) O2 Delivery: Nasal Cannula (12/15 1609) SpO2 Pulse: 145 (12/15 1800) Physical Exam: GEN: A&O. NAD CV: tachycardia PULM: Non-labored ABD: Soft, non-distended NEURO: Grossly intact INCISION: SS drainage, dark SS MANNY output Casa George MD Pager [phone] * Ruma Reynolds RN - 12/15/2017 6:[address] Tian to contact Dr. Swanson (who is in house) to assess pt. * Ruma Reynolds RN - 12/15/2017 6:[address] Tian updated via phone regarding drainage and current vital signs. Continue to monitor closely. * Ruma Reynolds RN - 12/15/2017 5:55 PM CDT Ortho team re-paged. Dr. Villalobos on unit and also updated. * Ruma Reynolds RN - 12/15/2017 5:30 PM CDT Copious drainage noted on pad, sheets and gown. Complete bed change performed. Net weight of drainage on [id number]. Ortho team paged (Dr. Swanson). * Gagan Dunlap DO - 12/15/2017 2:36 PM CDT Formatting of this note may be different from the original. Anesthesiology Acute Pain Service Date of Service: 12/15/2017 Name: Beata Kaiser is a 52 y.o. female : 1965 MRN# : [id number] PROCEDURE: Procedure(s) with comments: JAMIL PELVECTOMY - CASE LENGTH 5 HOURS CYSTORRHAPHY AND BLADDER NECK REPAIR, CYSTOSCOPY, LEFT ILIAC EXPOSURE POD #: 1 ANALGESIA TECHNIQUE Epidural catheter: bupivacaine 0.0625% Bolus: 4 mL Delay: 20 minutes Basal Infusion: 6 mL/hr ADJUNCT ANALGESIA MEDICATIONS dilaudid acetaminophen PO gabapentin Ketamine gtt TREATMENT PLAN Continue use of DIRECTOR PHARMACOLOGY for pain management, Continue use of epidural for pain management and Modification in therapy to improve pain control Epidural placed today once determined patient would not be therapeutically anticoagulated. Added ketamine gtt as adjunct. Continue dilaudid DIRECTOR PHARMACOLOGY. Will dc the PNC catheter since epidural in place. Anesthesia Pain pager: [phone] Allergies Allergen Reactions Cephalexin SEE COMMENTS Face gets red, feels really hot Inpatient Medications Scheduled Meds: acetaminophen (TYLENOL) tablet 1,000 mg 1,000 mg Per NG tube Q6H* buPROPion (WELLBUTRIN) tablet 100 mg 100 mg Per NG tube TID busPIRone (BUSPAR) tablet 30 mg 30 mg Per NG tube BID clindamycin (CLEOCIN) 600 mg/D5W 50 mL IVPB 600 mg Intravenous Q8H* gabapentin (NEURONTIN) oral solution 600 mg 600 mg Per NG tube TID gentamicin 105 mg in sodium chloride 0.9% (NS) 100 mL IVPB 1 mg/kg Intravenous Q8H heparin (porcine) PF syringe 5,000 Units 5,000 Units Subcutaneous BID insulin aspart U-100 (NOVOLOG FLEXPEN) injection PEN 0-14 Units 0-14 Units Subcutaneous 5 X Day levothyroxine (SYNTHROID) tablet 175 mcg 175 mcg Per NG tube QDAY before breakfast Continuous Infusions: bupivacaine DIRECTOR PHARMACOLOGY 0.0625% in NS 50mL epidural infusion syr bupivacaine DIRECTOR PHARMACOLOGY PNC 0.125% infusion syringe HYDROmorphone (DILAUDID) DIRECTOR PHARMACOLOGY 11 mg/NS 55mL infusion syr (std conc)(premade ) ketamine (KETALAR) 250 mg in dextrose 5% (D5W) 250 mL IV drip (ADULT) Stopped (12/15/17 1018) lactated ringers infusion 100 mL/hr at 12/15/17 1249 PRN and Respiratory Meds:diphenhydrAMINE Q6H PRN OR diphenhydrAMINE Q6H PRN , hyoscyamine Q4H PRN, naloxone PRN, ondansetron (ZOFRAN) IV Q6H PRN Anticoagulants heparin (porcine) PF syringe 5,000 Units BID HPI Visual Analog Scale (VAS) (0-10 Scale) At rest: 7 Patient satisfied with pain control: No Side Effects: none EXAM Recent Vitals Vital Signs: 24 Hour Range BP: 98/60 (12/15 1410) Temp: 36.8 C (98.2 F) (12/15 1410) Pulse: 130 (12/15 1410) Respirations: 11 PER MINUTE (12/15 1410) SpO2: 92 % (12/15 1400) O2 Delivery: Nasal Cannula (12/15 1225) SpO2 Pulse: 36 (12/15 1400) BP: (76-160)/(42-110) ABP: (57-164)/(52-90) Temp: [36.7 C (98.1 F)-36.9 C (98.5 F)] Pulse: [114-158] Respirations: [0 PER MINUTE-25 PER MINUTE] SpO2: [92 %-100 %] O2 Delivery: Nasal Cannula Lab Results Component Value Date PLTCT 138 12/15/2017 WBC 17.8 12/15/2017 HGB 7.8 12/15/2017 HCT 22.9 12/15/2017 CR 0.55 12/15/2017 PTT 23.7 12/14/2017 INR 1.0 11/30/2017 Level of Consciousness: Awake/alert Neurologic Function Sensory block: Yes Motor: No Insertion Site: Site clean and nontender Associated attestation - Aimee Aiken MD - 12/15/2017 3:30 PM CDT ATTESTATION I personally observed the resident performing the E/M, discussed case with resident, and concur with resident documentation of history, physical assessment and treatment plan unless otherwise noted. * Tamiko Luther MD - 12/15/2017 2:31 PM CDT I came back to see the pt due to concerns regarding her BP. Her SBP was in the 90s, pulse in the 130s. Her mentation was normal and not significantly different than is was this morning, but she complained of feeling tired. The fluid in her MANNY tubing appeared dilute. Her Hgb has dropped again, and we will transfuse another 2 units PRBCs. Her BP may have been related to the bolus through her epidural. Will keep her MANNY off of suction for now. Will continue to monitor. * Elmo Kruger, PT - 12/15/2017 1:55 PM CDT PHYSICAL THERAPY NOTE Pain control issues, low BP. We will hold physical therapy one day with anticipation of starting upright mobility tomorrow. Therapist: Elmo Kruger, PT Date: 12/15/2017 * Ruma Reynolds RN - 12/15/2017 1:[address] Swanson at bedside to assess drainage and see pt. Verbal order to leave MANNY drain OFF bulb suction at this time as 360mL has drained in last 50 minutes. Continue to monitor closely. * Ruma Reynolds, SANJAY - 12/15/2017 1:30 PM CDT 1330 - Pt remains hypotensive with small interval improvements. ICU team updated on VS. Team also notified of increase in MANNY drain output. This RN to notify primary team. 1335 - Dr. Swanson notified of increased MANNY drainage and dressing now saturating through onto bed pad. Telephone order to draw CBC and BMP. Dr. Swanson will contact Dr. Luther and provide her with update. Continue to monitor closely. * Adrienne Zarate MD - 12/15/2017 1:12 PM CDT Formatting of this note may be different from the original. Subjective: Uncontrolled pain overnight though was able to get some sleep. Discomfort with the NG tube. No other concerns this am. Objective: Blood pressure (!) 87/57, pulse (!) 140, temperature 36.8 C (98.2 F), height 162.6 cm (64"), weight 104.8 kg (231 lb 0.7 oz), SpO2 95 %. General: AAOx3, NAD Cardiac: tachycardic Respirations: Unlabored Extremities: LLE hemipelvectomy, dressings dry and intact Post-op Drains: (24 hours) MANNY: 360 ml Recent Labs 12/14/17 1842 PTT 23.7 CBC w/Diff Lab Results Component Value Date/Time WBC 16.9 (H) 12/15/2017 05:40 AM HGB 8.4 (L) 12/15/2017 05:40 AM HCT 25.0 (L) 12/15/2017 05:40 AM PLTCT 165 12/15/2017 05:40 AM Basic Metabolic Profile Lab Results Component Value Date/Time NA 141 12/15/2017 04:40 AM K 4.2 12/15/2017 04:40 AM CL 111 (H) 12/15/2017 04:40 AM CO2 15 (L) 12/15/2017 04:40 AM GAP 15 (H) 12/15/2017 04:40 AM Lab Results Component Value Date/Time BUN 13 12/15/2017 04:40 AM CR 0.55 12/15/2017 04:40 AM GLU 198 (H) 12/15/2017 04:40 AM A/P: 52 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 -NPO, NG tube -Gentamycin x24 hours post-op, Clinda until drain comes out -Melchor catheter x4 wks minimum -Maintain dressings, ortho to manage -MANNY drain to bulb suction -SICU consult -Anesthesia pain consult- plan for placement of epidural -SQ heparin for DVT ppx while epidural in place -Please do not leave flat for extended periods of time, would like patient to lay onto her right side as much as possible for swelling management of L hemipelvectomy -Acute blood loss anemia- Hgb 8.4 -Will give 1 u pRBCs today for ongoing blood loss, tachycardia Dispo: continue ICU care Adrienne Zarate MD Pager [phone] * Ruma Reynolds RN - 12/15/2017 12:30 PM CDT Post epidural placement pt acutely hypotensive; 70's/40's, HR 150's. Pt placed on 2L NC during epidural placement. Previously ordered unit of PRBC's that arrived to unit during epidural placement initiated. Approximately 700ml of lactated ringers bag placed on pressure bag as bolus per anesthesia. ICU team notified by Dr. Aiken of events. Pt remains alert and oriented. Continue to monitor closely. * Ruma Reynolds, RN - 12/15/2017 12:00 PM CDT Anesthesia at bedside for epidural placement. Time out performed; medications given per anesthesia. This RN at bedside for monitoring. * Joanne Abernathy, OT - 12/15/2017 10:30 AM CDT OCCUPATIONAL THERAPY Plan to see patient for evaluation this morning. Patient c/o severe pain, RN reports plan to place an epidural for pain management at some point today. OT will continue to follow and provide intervention as able. Joanne Abernathy, OTR/L [id number] * Valerie Couch MD - 12/15/2017 9:29 AM CDT Formatting of this note may be different from the original. Intensive Care Surgery Progress Note Admission Date:12/13/2017 LOS: 2 days Assessment: Beata Kaiser is a 52 y.o. 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 anesthesia pain on board. -- tylenol -- epidural -- PNC -- gabapentin -- dilaudid DIRECTOR PHARMACOLOGY depression -- Wellbutrin -- buspar CV Mildly hypotensive. tachycardic HR 120-130s Continue to monitor Pulm Stable on RA Pulmonary toilet, encourage IS GI/FEN NPO, NGT pepcid Zofran prn nausea Monitor and replace lytes prn Urology consulted: - Maintain melchor catheter x4 weeks - Levsin PRN for bladder spasms UOP adequate Cr 0.55 Continue to monitor Heme/ID Acute blood loss anemia -- Hgb 8.4. Hgb low, but no clinical signs of overt bleeding. Continue to trend serially. Optimize fluid balance. Monitor stools for signs of occult GI bleeding. 1u PRBC today Leukocytosis -- 16.9 Afebrile -- clinda, gent Endo DM MD[facility] insulin Hypothyroidism synthroid Monitor and treat prn MS PT/OT Ortho primary: -NPO, NG tube -Gentamycin x24 hours, Clinda until drain comes out -Melchor catheter x4 wks minimum -Maintain dressings, ortho to manage -MANNY drain to bulb suction -PNC sciatic nerve- anesthesia to manage pain while PNC in place -Please do not leave flat for extended periods of time, would like patient to lay onto her right side as much as possible MANNY drain: 500 PPx SCDs, heparin Disp - ICU SW/CM following for discharge planning needs. Patient seen and discussed with Dr. Couch during rounds. Subjective: Pain not controlled. Having increased MANNY drain output Objective: Current Vitals: Vitals 24hr Range: Hemodynamics BP: 107/71 (12/15 899) ABP: 103/86 (12/15 899) Temp: 36.8 C (98.2 F) (12/15 0400) Pulse: 141 (12/15 899) Respirations: 21 PER MINUTE (12/15 899) SpO2: 93 % (12/15 899) O2 Delivery: None (Room Air) (12/15 07) BP: (105-160)/(52-110) ABP: (88-164)/(58-90) Temp: [36.8 C (98.2 F)-36.9 C (98.4 F)] Pulse: [114-141] Respirations: [14 PER MINUTE-25 PER MINUTE] SpO2: [92 %-100 %] O2 Delivery: None (Room Air) Vitals: 12/13/17 1115 Weight: 104.8 kg (231 lb 0.7 oz) Intake & Output: Intake/Output Summary (Last 24 hours) at 12/15/17 0929 Last data filed at 12/15/17 0720 Gross per 24 hour Intake 10820.76 ml Output 5880 ml Net 5520.76 ml Drains: MANNY Physical Exam: Gen: AAOx3, Cardio: RRR Pulm: unlabored breathing Abd: Soft, obese, nondistended, nontender Ext: surgically removed LLE. Dressing with some saturation. MANNY drain with bloody output Neuro: No focal neuro deficits Labs: Hematology Chemistry Glucose Lab Results Component Value Date/Time WBC 16.9 (H) 12/15/2017 05:40 AM HGB 8.4 (L) 12/15/2017 05:40 AM HCT 25.0 (L) 12/15/2017 05:40 AM PLTCT 165 12/15/2017 05:40 AM APTT Date/Time Value Ref Range Status 12/14/2017 06:42 PM 23.7 21.0 - 39.0 SEC Final 12/14/2017 06:12 AM 29.3 21.0 - 39.0 SEC Final INR Date/Time Value Ref Range Status 11/30/2017 08:15 AM 1.0 0.8 - 1.2 Final Lab Results Component Value Date PHART 7.36 12/15/2017 PCO2A 22 12/15/2017 PO2ART 136 12/15/2017 HCO3A 14.5 12/15/2017 BASEDEFA 12.5 12/15/2017 Lab Results Component Value Date/Time NA 141 12/15/2017 04:40 AM K 4.2 12/15/2017 04:40 AM CL 111 (H) 12/15/2017 04:40 AM CO2 15 (L) 12/15/2017 04:40 AM BUN 13 12/15/2017 04:40 AM CR 0.55 12/15/2017 04:40 AM GFR >60 12/15/2017 04:40 AM GLU 198 (H) 12/15/2017 04:40 AM CA 7.8 (L) 12/15/2017 04:40 AM PO4 3.2 12/15/2017 04:40 AM Glucose, POC Date/Time Value Ref Range Status 12/15/2017 08:54 AM 177 (H) 70 - 100 MG/DL Final 12/15/2017 06:45 AM 206 (H) 70 - 100 MG/DL Final 12/14/2017 09:22 PM 199 (H) 70 - 100 MG/DL Final 12/03/2017 07:42 AM 145 (H) 70 - 100 MG/DL Final 12/02/2017 09:50 PM 206 (H) 70 - 100 MG/DL Final 12/02/2017 06:20 PM 196 (H) 70 - 100 MG/DL Final 12/02/2017 01:36 PM 147 (H) 70 - 100 MG/DL Final 12/02/2017 08:29 AM 178 (H) 70 - 100 MG/DL Final 12/02/2017 03:52 AM 167 (H) 70 - 100 MG/DL Final 12/01/2017 10:19 PM 218 (H) 70 - 100 MG/DL Final Medications: gtts bupivacaine DIRECTOR PHARMACOLOGY PNC 0.125% infusion syringe HYDROmorphone (DILAUDID) DIRECTOR PHARMACOLOGY 11 mg/NS 55mL infusion syr (std conc)(premade ) ketamine (KETALAR) 250 mg in dextrose 5% (D5W) 250 mL IV drip (ADULT) lactated ringers infusion 100 mL/hr at 12/15/17 0909 Scheduled acetaminophen (TYLENOL) tablet 1,000 mg 1,000 mg Per NG tube Q6H* buPROPion XL (WELLBUTRIN XL) tablet 150 mg 150 mg Oral BID busPIRone (BUSPAR) tablet 30 mg 30 mg Per NG tube BID clindamycin (CLEOCIN) 600 mg/D5W 50 mL IVPB 600 mg Intravenous Q8H* enoxaparin (LOVENOX) syringe 100 mg 1 mg/kg Subcutaneous BID famotidine (PEPCID) injection 20 mg 20 mg Intravenous BID gabapentin (NEURONTIN) oral solution 600 mg 600 mg Per NG tube TID gentamicin 105 mg in sodium chloride 0.9% (NS) 100 mL IVPB 1 mg/kg Intravenous Q8H insulin aspart U-100 (NOVOLOG FLEXPEN) injection PEN 0-14 Units 0-14 Units Subcutaneous 5 X Day levothyroxine (SYNTHROID) tablet 175 mcg 175 mcg Per NG tube QDAY before breakfast PRN diphenhydrAMINE Q6H PRN OR diphenhydrAMINE Q6H PRN, hyoscyamine Q4H PRN, naloxone PRN, ondansetron (ZOFRAN) IV Q6H PRN Harry Moore MD [id number] ATTESTATION.. I have seen, personally fully evaluated, and discussed patient with the resident. I agree with the objective findings and agree with the plan of care as documented by the resident with the exceptions noted. The patient is critically ill with the above assessment. I spent 30 minutes (excluding time spent performing or supervising any procedures) providing and personally directing critical care services including the outlined plan. staff name..Valerie Couch MD date..12/17/2017 * Keith Garcia DO - 12/15/2017 3:55 AM CDT Throughout the night the patient has mentioned 10/10 pain even after starting the PNC catheter with Bupivicaine 0.125% running at 4mL/hr. She has been receiving 50mcg Fentanyl q1h as well as Dilaudid 0.5-1mg q4h with only slight relief. The catheter was very difficult to assess as the Hypo-fix and subsequent dressings obscure the entry site. 5mL of 0.25% Bupivicaine was given at 0345 through the Intraneural Sciatic PNC with negative aspiration and easy administration. The patient stated after administration that she felt something wet at the site of insertion but this was not able to be assess again as the dressing covers the insertion site but no obvious extravasation of fluid was seen. Pt will be reassessed in the am to determine if catheter is in place and/ or functional in the mean time a Fentanyl DIRECTOR PHARMACOLOGY at 10mcg q10min was given to the patient to help decrease her pain. Keith Garcia DO CA-1, Anesthesiology Pager [phone] * Eunice Helms, LELAND - 12/14/2017 12:49 PM CDT OCCUPATIONAL THERAPY NO TREATMENT NOTE The patient was not seen due to: Pt to OR for hip disarticulation. OT will follow-up 12/16 Therapist: Eunice Helms, LELAND Date: 12/14/2017 * Anand Tirado MD - 12/14/2017 6:55 AM CDT She is a 52 yo female with a left pelvic chondrosarcoma who presents to resection with a left hemipelvectomy. Imaging suggested left iliac vein thrombosis. An IVC filter was placed. We were asked to help with vascular exposure and possible reconstruction to maintain arterial supply to the muscle flap for closure. Risks/benefits discussed with her. She acknowledged and elects to proceed. Anand Tirado MD * Kristie Cruz MD - 12/14/2017 6:23 AM CDT Ms. Kaiser is a 52 yo F with L pelvic chondrosarcoma - Posted and consented for OR today for hemipelvectomy - Keep NPO Anthony 7631 * Mauro Melgoza, RN - 12/14/2017 5:42 AM CDT Report given to RN in Pre-op. * Gerald Lund, PT - 12/13/2017 4:32 PM CDT PHYSICAL THERAPY NOTE Patient provided with and educated on "Adjusting to limb loss", " desensitization techniques:, and "what to expect" handouts. Therapy plan following OR also discussed with patient who states understanding. Therapy will continue to follow and initiate therapy postop as indicated. Therapist: Gerald Lund, PT, DPT Date: 12/13/2017 * Belen Mahmood RN - 12/13/2017 3:03 PM CDT 1445- Heparin gtt verified with another RN. Clarified with pharmacy regarding need for initial IV bolus. Per administration instructions "see separate order for initial bolus." No other order noted. Per pharmacy- no initial bolus needed. Primary RN notified. * Spencer Forbes RT - 12/13/2017 12:14 PM CDT Formatting of this note may be different from the original. RESPIRATORY THERAPY ADULT PROTOCOL EVALUATION RESPIRATORY PROTOCOL PLAN Medications Note: If indicated by protocol, medication orders will be placed by therapist. Procedures PATIENT EVALUATION RESULTS Chart Review * Pulmonary Hx: No pulmonary diagnosis OR no smoking hx * Surgical Hx: No surgery OR last surgery > 6 weeks ago OR trach/stoma (BA) * Chest X-Ray: Clear OR not available * PFT/Oxygenation: FEV1, PEFR > 80% predicted OR physically unable to perform OR Pa02 >80 RA OR Sp02 >95% RA Patient Assessment * Respiratory Pattern: Regular pattern and rate OR good chest excursion with deep breathing * Breath Sounds: Clear and able to auscultate bases posteriorly * Cough / Sputum: Strong, effective cough OR nonproductive * Mental Status: Alert, oriented, cooperative * Activity Level: Ambulatory Priority Index Total Points: 0 Points * Priority Index: Criteria not met PRIORITY INDEX GUIDELINES* Priority Points 1 0-9 points 2 9-18 points 3 > 18 points + Pulm Dx or Home Rx *Higher points indicate higher acuity. Therapist: Spencer Forbes Date: 12/13/2017 Banuelos AC=Airway clearance AM=Aerosolized medication BA=[place] aerosol DB&C=Deep breathe & cough FEV1=Forced expiratory volume in first second) IC=Inspiratory capacity LE=Lung expansion MDI=Metered dose inhaler Neb=Nebulizer O2=Oxygen Oxim=Oximetry PEFR=Peak expiratory flow rate TESTER WASTE DISPOSAL LEAKAGE=Rapid Response Team * Mita Meyer, SANJAY - 12/13/2017 10:50 AM CDT Patient arrived on unit via wheelchair accompanied by transport and family. Patient walked to bathroom and then bed without assistance. Assessment completed, refer to flowsheet for details. Orders released, reviewed, and implemented as appropriate. Oriented to surroundings, call light within reach. Plan of care reviewed. Will continue to monitor and assess. in this encounter H&P Notes * Montez Agudelo DO - 12/30/2017 8:23 AM CDT Formatting of this note may be different from the original. History and Physical Update Note Allergies: Cephalexin Lab/Radiology/Other Diagnostic Tests: 24-hour labs: Results for orders placed or performed during the hospital encounter of (from the past 24 hour(s)) POC GLUCOSE Collection Time: 12/29/17 11:56 AM Result Value Ref Range Glucose, POC 281 (H) 70 - 100 MG/DL POC GLUCOSE Collection Time: 12/29/17 5:41 PM Result Value Ref Range Glucose, POC 335 (H) 70 - 100 MG/DL POC GLUCOSE Collection Time: 12/29/17 6:40 PM Result Value Ref Range Glucose, POC 373 (H) 70 - 100 MG/DL POC GLUCOSE Collection Time: 12/29/17 9:08 PM Result Value Ref Range Glucose, POC 267 (H) 70 - 100 MG/DL POC GLUCOSE Collection Time: 12/30/17 3:57 AM Result Value Ref Range Glucose, POC 160 (H) 70 - 100 MG/DL COMPREHENSIVE METABOLIC PANEL Collection Time: 12/30/17 4:58 AM Result Value Ref Range Sodium 132 (L) 137 - 147 MMOL/L Potassium 4.3 3.5 - 5.1 MMOL/L Chloride 98 98 - 110 MMOL/L Glucose 165 (H) 70 - 100 MG/DL Blood Urea Nitrogen 10 7 - 25 MG/DL Creatinine 0.85 0.4 - 1.00 MG/DL Calcium 8.6 8.5 - 10.6 MG/DL Total Protein 5.7 (L) 6.0 - 8.0 G/DL Total Bilirubin 0.3 0.3 - 1.2 MG/DL Albumin 2.2 (L) 3.5 - 5.0 G/DL Alk Phosphatase 127 (H) 25 - 110 U/L AST (SGOT) 47 (H) 7 - 40 U/L CO2 28 21 - 30 MMOL/L ALT (SGPT) 51 7 - 56 U/L Anion Gap 6 3 - 12 eGFR Non >60 >60 mL/min eGFR >60 >60 mL/min PHOSPHORUS Collection Time: 12/30/17 4:58 AM Result Value Ref Range Phosphorus 4.1 (H) 2.0 - 4.0 MG/DL MAGNESIUM Collection Time: 12/30/17 4:58 AM Result Value Ref Range Magnesium 2.0 1.6 - 2.6 mg/dL TRIGLYCERIDE Collection Time: 12/30/17 4:58 AM Result Value Ref Range Triglycerides 198 (H) <150 MG/DL Point of Care Testing: (Last 24 hours): FSBS (Manual): (!) 160 (12/30/17 7668) Glucose: (!) 165 (12/30/17 5040) POC Glucose (Download): (!) 160 (12/30/17 8142) I have examined the patient, and there are no significant changes in their condition, from the previous H&P performed on 12/26/2017. OR today for open colostomy formation Risk and benefits of operative procedure were discussed in detail with the patient, and after all questions were answered, the patient elected to proceed with surgery and informed consent was provided. Montez Agudelo DO Pager Consult Orders: CONSULT COLO-RECTAL SURGERY PHYSICIAN [[id number]] ordered by Montez Agudelo DO at 12/26/17 0900 []Hide copied text [facility] Consult 12/26/2017 Patient: Beata Kaiser Admission Date: 12/13/2017, LOS: 13 days Admission Diagnosis: Pelvic mass [R19.00] Date of Service: December 26, 2017 Reason for Consult: Evaluate for diverting colostomy, patient with stool soilage of left hemipelvectomy wound Referring Provider: Tamiko Luther MD Attending Surgeon: Dr Russell, (Covering for Dr Mccollum) Consult Performed by: Ramos Cheatham DO ASSESSMENT: 52 y.o. female with history of left pelvic chondrosarcoma, s/p left hemipelvectomy on 12/14/2017, now with poorly healing wound, stool soilage. PLAN: - ID following for persistent leukocytosis and fevers, patient continues on Vanc /zosyn - Will discuss with Dr Mccollum this week, evaluate for diverting colostomy Patient seen with Dr. Russell (covering for Dr Mccollum), who directed plan of care. Ramos Cheatham DO Pager: [phone] HPI: Beata Kaiser is a 52 y.o. female with history of left pelvic chondrosarcoma, s/p left hemipelvectomy on 12/14/2017, who has developed a poorly healing wound. She states she has had persistent loose stools, and that the wound is frequently contaminated by this. She is afebrile currently, and denies nausea or vomiting. She states she is considering diverting colostomy. ROS: A comprehensive review of systems was obtained and is negative except for as noted in the HPI. Past Medical History: Diagnosis Date Anxiety Back pain Depression DM (diabetes mellitus) (HCC) Hypothyroidism Past Surgical History: Procedure Laterality Date SKIN BIOPSY Left 11/30/2017 BIOPSY SKIN LEFT PELVIS performed by [facility]/ [facility] PELVIS OSTEOTOMY Left 12/14/2017 JAMIL PELVECTOMY performed by Tamiko Luther MD [facility]iop URETER STENT PLACEMENT Bilateral 12/14/2017 CYSTORRHAPHY AND BLADDER NECK REPAIR, CYSTOSCOPY, performed by Spencer Purcell MD [facility]iop PERIPHERAL VASCULAR SURGERY Left 12/14/2017 LEFT ILIAC EXPOSURE performed by Pio Malagon DO at [facility]iop SECTION HERNIA REPAIR MANDIBLE SURGERY Medications: No current facility-administered medications on file prior to encounter. Current Outpatient Prescriptions on File Prior to Encounter Medication Sig Dispense Refill aspirin EC 81 mg tablet Take 81 mg by mouth daily. Take with food. buPROPion SR(+) (WELLBUTRIN-SR) 150 mg tablet Take 150 mg by mouth twice daily. busPIRone (BUSPAR) 30 mg tablet Take 30 mg by mouth twice daily. empagliflozin (JARDIANCE) 25 mg tab Take 1 tablet by mouth daily. gabapentin (NEURONTIN) 300 mg capsule Take 1 capsule by mouth three times daily. 90 capsule 1 levothyroxine (SYNTHROID) 175 mcg tablet Take 175 [...] hours as needed Earliest Fill Date: 12/03/17 75 tablet 0 potassium chloride SR (K-DUR) 10 mEq tablet Take 10 mEq by mouth daily. Take with a meal and a full glass of water. rivaroxaban (XARELTO) 15 mg tablet Take 15 mg by mouth twice daily. Take with food. senna/docusate (SENOKOT-S) 8.6/50 mg tablet Take 1 tablet by mouth twice daily. 60 tablet 0 Allergies: Cephalexin Social History Social History Marital status: Spouse [...] of Onset Osteoporosis Mother Arthritis-rheumatoid Maternal Grandmother Vitals: Vital Signs: Last Filed In 24 Hours Vital Signs: 24 Hour Range BP: 136/79 (12/26 1849) Temp: 36.7 C (98.1 F) (12/26 1849) Pulse: 89 (12/26 1849) Respirations: 18 PER MINUTE (12/26 1849) SpO2: 93 % (12/26 1849) O2 Delivery: None (Room Air) (12/26 1849) BP: (108-155)/(59-86) Temp: [36.5 C (97.7 F)-37.1 C (98.7 F)] Pulse: [76-104] Respirations: [17 PER MINUTE-18 PER MINUTE] SpO2: [92 %-97 %] O2 Delivery: None (Room Air) Intensity Pain Scale 0-10 (Pain 1): 4 (12/26/17 1320) Intake/Output: Intake/Output Summary (Last 24 hours) at 12/26/17 1903 Last data filed at 12/26/17 1733 Gross per 24 hour Intake 0 ml Output 6560 ml Net -6560 ml Physical Exam: General: A&O x 3, no acute distress, appears stated age HEENT: Normocephalic. PERRLA, EOMI. Neuro: Non-focal, muscle strength and sensation grossly intact throughout. Pulm: Non-labored respirations on room air. No tachypnea. CV: RRR Abdomen: soft, non-tender, non-distended. No peritoneal signs. Extremities: LLE hemipelvectomy incision with eschar extending along the majority of the wound. Mild kimberly-incisional erythema. Skin: warm, dry Lab/Radiology/Other Diagnostic Tests: Recent Labs 12/24/17 0434 12/24/17 0716 12/25/17 0442 12/26/17 0401 HGB 7.3* 7.4* 8.3* 7.9* HCT 21.3* 21.3* 23.9* 23.5* WBC 16.9* 15.8* 11.8* 11.3* PLTCT 294 291 296 345 NA 126* -- 131* 133* K 3.9 -- 3.6 3.5 CL 92* -- 97* 98 CO2 27 -- 27 27 BUN 9 -- 6* 4* CR 0.57 -- 0.49 0.47 GLU 168* -- 218* 247* CA 7.5* -- 7.5* 7.8* MG -- -- -- 2.0 PO4 -- -- -- 2.1 Glucose: (!) 247 (12/26/17 0401) POC Glucose (Download): (!) 215 (12/26/17 1742) Ramos Cheatham DO Pager:[phone] * Spencer Purcell MD - 12/14/2017 6:04 AM CDT Formatting of this note may be different from the original. [facility] History and Physical Examination 12/14/2017 Patient: Beata Kaiser Admission Date: 12/13/2017, LOS: 1 day Admission Diagnosis: Pelvic mass [R19.00] ASSESSMENT: 52 y.o. female with chondrosarcoma of the left pelvis PLAN: - to OR for left hemipelvectomy (with Ortho) and cystoscopy with bilateral ureteral stent placement - consent obtained and in chart Discussed plan of care with staff surgeon, Dr. Purcell, who directed plan of care. Marino Real MD PGY-2 Urology Resident Pager: [phone] HPI: eBata Kaiser is a 52 y.o. female with chondrosarcoma and is proceeding with left hemipelvectomy with Orthopedics. They have asked us to assist with placement of stents prior to procedure. Patient without any urologic history. Past Medical History: Diagnosis Date Anxiety Back pain Depression DM (diabetes mellitus) (HCC) Past Surgical History: Procedure Laterality Date SKIN BIOPSY Left 11/30/2017 BIOPSY SKIN LEFT PELVIS performed by Tamiko Luther MD [facility] SECTION HERNIA REPAIR MANDIBLE SURGERY Medications: No current facility-administered medications on file prior to encounter. Current Outpatient Prescriptions on File Prior to Encounter Medication Sig Dispense Refill aspirin EC 81 mg tablet Take 81 mg by mouth daily. Take with food. buPROPion SR(+) (WELLBUTRIN-SR) 150 mg tablet Take 150 mg by mouth twice daily. busPIRone (BUSPAR) 30 mg tablet Take 30 mg by mouth twice daily. empagliflozin (JARDIANCE) 25 mg tab Take 1 tablet by mouth daily. gabapentin (NEURONTIN) 300 mg capsule Take 1 capsule by mouth three times daily. 90 capsule 1 levothyroxine (SYNTHROID) 175 mcg tablet Take 175 [...] hours as needed Earliest Fill Date: 12/03/17 75 tablet 0 potassium chloride SR (K-DUR) 10 mEq tablet Take 10 mEq by mouth daily. Take with a meal and a full glass of water. rivaroxaban (XARELTO) 15 mg tablet Take 15 mg by mouth twice daily. Take with food. senna/docusate (SENOKOT-S) 8.6/50 mg tablet Take 1 tablet by mouth twice daily. 60 tablet 0 Allergies: Cephalexin Social History Social History Marital status: Spouse [...] of Onset Osteoporosis Mother Arthritis-rheumatoid Maternal Grandmother Reviewed and non-contributory Vitals: Vital Signs: Last Filed In 24 Hours Vital Signs: 24 Hour Range BP: 107/62 (12/14 522) Temp: 36.9 C (98.4 F) (12/14 522) Pulse: 92 (12/14 522) Respirations: 16 PER MINUTE (12/14 522) SpO2: 96 % (12/14 522) O2 Delivery: None (Room Air) (12/14 522) Height: 162.6 cm (64") (12/13 1115) BP: (103-133)/(62-87) Temp: [36.3 C (97.4 F)-36.9 C (98.4 F)] Pulse: [92-110] Respirations: [16 PER MINUTE-18 PER MINUTE] SpO2: [93 %-100 %] O2 Delivery: None (Room Air) Intensity Pain Scale 0-10 (Pain 1): 5 (12/13/172056) Intake/Output: Intake/Output Summary (Last 24 hours) at 12/14/17604 Last data filed at 12/14/17 0004 Gross per 24 hour Intake 423 ml Output 0 ml Net 423 ml Physical Exam: GEN: Well nourished, A&O, NAD HEENT: EOMI, no scleral icterus CHEST: Unlabored respirations CV: Regular rate ABD: Soft, non-tender EXT: No C/C/E, strength/sensation grossly in-tact bilaterally SKIN: No jaundice ROS: A 10 point review of systems was reviewed and was negative except for those listed above in HPI Lab/Radiology/Other Diagnostic Tests: Recent Labs 12/13/17 1117 12/13/17 1130 12/13/172048 HGB 11.7* -- -- HCT 33.6* -- -- WBC 7.0 -- -- PLTCT 293 -- -- NA 140 -- -- K 4.0 -- -- CL 104 -- -- CO2 26 -- -- BUN 13 -- -- CR 0.80 -- -- GLU 161* -- -- CA 9.5 -- -- PTT -- 38.7 95.1* Glucose: (!) 161 (12/13/17 1117) ATTESTATION I personally performed the banuelos portions of the E/M visit, discussed case with resident and concur with resident documentation of history, physical exam, assessment, and treatment plan unless otherwise noted. Staff name: Spencer Purcell MD Date: 01/03/2018 * Adrienne Zarate MD - 12/13/2017 10:44 AM CDT Formatting of this note may be different from the original. [facility] History & Physical Note Admission Date: 12/13/2017 Chief Complaint: L pelvic chondrosarcoma Assessment/Plan 52 y.o. F w/ L pelvic chondrosarcoma -Plan for OR 12/14 for hemipelvectomy -Clear liquid diet, NPO at ID -Bowel prep -Neomycin/erythromycin oral -heparin drip for DVT, stop at MN prior to procedure -Vascular surgery to assist and is aware -Urology for stent placement prior to procedure and is aware -General surgery consult for intraoperative assistance -Labs -Resume home meds -4 units pRBCs held for OR tomorrow Patient discussed with Dr. Ashkan Zarate MD [id number] History of Present Illness: Beata Kaiser is a 52 y.o. female. Ms. Kaiser was referred by Bird Iraheta APRN, for evaluation of a mass along her left pelvis. Ms. Kaiser states that she has had LBP for over a year. She denies any history of injury to this. She underwent an MRI in June 2017, and her pain was thought to be due to DDD. She underwent 2 steroid injections without relief of her pain. She was scheduled for surgery on her back. She notes that the pain started to radiate down her LLE in August 2017 and frequently goes into her heel. She also notes paresthesias and numbness in this distribution. She has pain at all times, including at night. She has pain with sitting. She does not note much increase in her pain with weightbearing. She also notes that her LLE occasionally feels weak. She denies any bowel or bladder control issues but notes that she usually is now voiding small volumes. She denies any new pain elsewhere. She denies any fevers or chills. She denies any increased fatigue. She notes about a 2 month history of decreased appetite and has lost some weight. In September 2017 she noted onset of LLE swelling that has progressed. An ultrasound of her LLE was unremarkable for DVT. However, an MRI of her pelvis demonstrated a large mass with compression on her veins. The patient was taken to the OR on 11/29. The patient underwent open biopsy L pelvis. The pt was admitted post op for IVC filter placement secondary to dvt and pelvic mass. Also was seen by res of surgical teams to be involved in her hemipelvectomy including surg onc, vascular, urology. Cardiology was also consulted for pre op work up. 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 Pt was on heparin gtt during preoperative planning and transitioned by to her xarelto. She presents today for a hemipelvectomy scheduled for 12/14/17. Past Medical History: Diagnosis Date Anxiety Back pain Depression DM (diabetes mellitus) (HCC) Past Surgical History: Procedure Laterality Date SKIN BIOPSY Left 11/30/2017 BIOPSY SKIN LEFT PELVIS performed by Tamiko Luther MD at [facility] SECTION HERNIA REPAIR MANDIBLE SURGERY Social History Substance Use Topics Smoking status: Never Smoker Smokeless tobacco: Never Used Alcohol use No Family History Problem Relation Age of Onset Osteoporosis Mother Arthritis-rheumatoid Maternal Grandmother Family history reviewed with patient and is non-contributory. Allergies: Allergies Allergen Reactions Cephalexin SEE COMMENTS Face gets red, feels really hot No current facility-administered medications on file prior to encounter. Current Outpatient Prescriptions on File Prior to Encounter Medication Sig Dispense Refill aspirin EC 81 mg tablet Take 81 mg by mouth daily. Take with food. buPROPion SR(+) (WELLBUTRIN-SR) 150 mg tablet Take 150 mg by mouth twice daily. busPIRone (BUSPAR) 30 mg tablet Take 30 mg by mouth twice daily. empagliflozin (JARDIANCE) 25 mg tab Take 1 tablet by mouth daily. gabapentin (NEURONTIN) 300 mg capsule Take 1 capsule by mouth three times daily. 90 capsule 1 levothyroxine (SYNTHROID) 175 mcg tablet Take 175 [...] hours as needed Earliest Fill Date: 12/03/17 75 tablet 0 potassium chloride SR (K-DUR) 10 mEq tablet Take 10 mEq by mouth daily. Take with a meal and a full glass of water. rivaroxaban (XARELTO) 15 mg tablet Take 15 mg by mouth twice daily. Take with food. senna/docusate (SENOKOT-S) 8.6/50 mg tablet Take 1 tablet by mouth twice daily. 60 tablet 0 Review of Systems: comprehensive ROS was neg except as mentioned in HPI and numbness and swelling of LLE Vital Signs: Last Filed in 24 hours BP: 133/83 (12/13 1000) Temp: 36.6 C (97.9 F) (12/13 1000) Pulse: 93 (12/13 1000) Respirations: 18 PER MINUTE (12/13 1000) SpO2: 96 % (12/13 1000) O2 Delivery: None (Room Air) (12/13 999) Physical Exam: General: AAOx3, NAD ENT: Oropharynx/Nasopharynx clear Respiratory: Unlabored respirations Cardio: RRR GI: soft, NT, ND Musculoskeletal: LLE- compartments soft, flexes/extends toes and ankle, foot warm and well perfused Neurologic: no focal deficits noted Lab/Radiology/Other Diagnostic Tests: Radiographs: Reviewed CBC w/Diff Lab Results Component Value Date/Time WBC 6.8 12/03/2017 07:50 AM HGB 11.1 (L) 12/03/2017 07:50 AM HCT 32.9 (L) 12/03/2017 07:50 AM PLTCT 209 12/03/2017 07:50 AM Basic Metabolic Profile Lab Results Component Value Date/Time NA 139 12/03/2017 07:50 AM K 4.1 12/03/2017 07:50 AM CL 105 12/03/2017 07:50 AM CO2 30 12/03/2017 07:50 AM GAP 4 12/03/2017 07:50 AM BUN 11 12/03/2017 07:50 AM CR 0.68 12/03/2017 07:50 AM GLU 161 (H) 12/03/2017 07:50 AM Coagulation Studies Lab Results Component Value Date/Time PTT 48.4 (H) 12/02/2017 07:18 AM INR 1.0 11/30/2017 08:15 AM Adrienne Zarate MD Associated attestation - Tamiko Luther MD - 12/14/2017 7:11 AM CDT I met with Ms. Kaiser during her last admission, yesterday, and again this morning. We had discussed the rationale for a hemipelvectomy, given the grade of the chondrosarcoma, as well as the size of the lesion. I had spoken with thoracic surgery, who will remove the lung nodules after she recuperates from this surgery. I discussed with the pt that this tumor does not respond to chemotherapy or RT, thus the need for aggressive surgery. We discussed that this is a very high risk surgery, with large blood loss, risk for injury to vessels, nerves, and bowel. We discussed that she may not have voluntary control of her bladder or bowel after surgery. We discussed phantom sensation and phantom pain. She remains on gabapentin. We will use PNCs, rather than an epidural, due to her anticoagulation. Drs. Purcell, Celestino, and Chun have been contacted and are available to participate. All of the pt's and her her family's questions were answered in detail. in this encounter Procedure Notes * Angel Villa - 12/30/2017 5:52 PM CDT PICC Line Insertion Procedure Note NAME:Beata Kaiser :1965 AGE: 52 y.o. ADMISSION DATE: 12/13/2017 DAYS ADMITTED: LOS: 17 days Procedure Details: Informed consent was obtained for the procedure. Risks of infection, blood clot, and nerve or vessel damage were discussed. Indications: Sign Writer Hand IV therapy, TPN Procedure: Under sterile conditions the skin at the insertion site was prepped with chlorhexadineand covered with a sterile drape. Local anesthesia was applied to the skin and subcutaneous tissues. A #5 FR, Double, PICC was inserted in theRight Basilic vein per hospital protocol. Blood return: Yes Catheter trimmed@ 38cm, inserted to 38 cm, with 0 cm external. Catheter was flushed with 30 mL NS. Patient did tolerate procedure well. Mid upper arm circumference is 32 cm.Vein size 4.3mm 40% Verification:Placement confirmed with ECG., Patency verified by positive blood return., Venous location confirmed by ultrasound., Educational material/ teaching instruction given to patient and/or left at bedside. and Picc tip level of CAJ/proximal right atrium per green 3CG in this encounter Consult Notes * Nani Mcelroy RN - 01/12/2018 11:33 AM CDT Associated Order(s): CONSULT WOUND/OSTOMY TEAM Formatting of this note may be different from the original. Wound Ostomy Note NAME:Beata Kaiser :1965 AGE: 52 y.o. ADMISSION DATE: 12/13/2017 DAYS ADMITTED: LOS: 30 days Reason for Consult/Visit: wound VAC Assessment/Plan: Principal Problem: Pelvic mass Active Problems: Chondrosarcoma (HCC) Pelvic mass in female Metabolic acidosis Acute blood loss as cause of postoperative anemia Depression Anxiety DM (diabetes mellitus) (HCC) Hypothyroidism Hemorrhagic shock (HCC) Chronic pain Wounds (NOT for Pressure Injuries) 12/20/17 1530 Frontal Other (Comment) Moisture Associated Skin Damage (Active) 12/20/17 1530 Other (Comment) Wound Orientation: Frontal Wound Type: Moisture Associated Skin Damage Wound Type:: Wound Description (Comments): Agree With My Assessment? Yes Wound Base Assessment Black;Garber;Gallardo Surrounding Skin Assessment Intact Wound Site Closure None Wound Drainage Amount Scant Wound Drainage Description serous Wound Dressing Status Wound Dressing and / or Treatment A & D Ointment Number of days: 23 Wounds (NOT for Pressure Injuries) 12/23/17 1345 Left Labia (Active) 12/23/17 1345 Labia Wound Orientation: Left Wound Type: Wound Type:: Wound Description (Comments): Agree With My Assessment? Yes Wound Base Assessment Moist;Yellow Surrounding Skin Assessment Edema Wound Site Closure Open to Air Wound Drainage Amount Scant Wound Drainage Description Serous Wound Dressing Status Open to Air Wound Dressing and / or Treatment A & D Ointment Wounds (NOT for Pressure Injuries) 01/10/18 1100 Hip Surgical Incision (Active) 01/10/18 1100 Hip Wound Orientation: Wound Type: Surgical Incision Wound Type:: Wound Description (Comments):WOUND VAC Wound Image 01/12/2018 11:00 AM Agree With My Assessment? Yes 01/10/2018 12:15 PM Wound Base Assessment Moist;Red;Gallardo;Yellow 01/12/2018 11:00 AM Surrounding Skin Assessment Erythema;Edema 01/12/2018 11:00 AM Wound Drainage Amount Moderate 01/12/2018 11:00 AM Wound Drainage Description Serosanguineous 01/12/2018 11:00 AM Wound Dressing Status Changed 01/12/2018 11:00 AM Wound Dressing and / or Treatment VAC @ -125 mm/Hg;VAC sponge -2 black;VAC tx: Continuous, 01/12/2018 11:00 AM Wound Length (cm) (Wound Team Only) 6 cm 01/12/2018 11:00 AM Wound Width (cm) (Wound Team Only) 15 cm 01/12/2018 11:00 AM Wound Depth (cm) (Wound Team Only) Greater than 26 01/12/2018 11:00 AM Wound Volume (cm^3) (Wound Team Only) 2340 cm^3 01/12/2018 11:00 AM Tunneling in CM (Wound Team Only) 15 cm 01/12/2018 11:00 AM Tunneling Location 3 O clock 01/12/2018 11:00 AM Number of days: 2 Procedure: Negative Wound Therapy Dressing Change Anesthesia Type: Not Applicable or None Provider(s) and Role: RN Negative Wound Pressure Device Type: KCI VAC Contact layer: no Wound dimension (length x width x depth, tunneling, undermining): see above Number of sponges in the wound prior to dressing change: no sticker Number of sponges removed from the wound: 1 Type of sponge: Black foam Number of sponges placed in the wound: 2 Nani Mcelroy RN Wound vac change done at bedside. Pt tolerated well/ medicated prior. Wound measurements as above. Unable to get accurate depth , greater than 26 cm ( Q- tip + hand to wrist). Black foam not placed full length to wound base as unsure as of what structures are exposed. Fluid was pocketed at the 3 O'clock tunnel ( beneath the lateral suture line.) Black Foam tucked into this space. RECOMMEND : Left lateral abdomen ( not in crease) D/C A&D ointment Clean gallardo dry wound with saline and gauze and remove any eschar that lifts easily. Apply nickel thick layer of Collagenase directly to the wound. Cover with xeroform gauze and 4x4/ may secure with minimal tape. Change daily Next vac dressing change Sunday 01/14 Will continue to follow. Nani Mcelroy RN, BSN Wound Ostomy Nursing Consult Service Office: [phone] Pager: [phone] After hours Wound/Ostomy team pager : [phone] * Emma Payton RN - 01/07/2018 4:30 PM CDT Diabetes Education follow up Educator spoke with Dr. Zarate concerning need for diabetes education including meal planning, carb couting, lifestyle changes and insulin administration at this time. At time of initial meeting pt had expressed desire to cover these topics in more detail. This education has not presented yet due to a complicated and difficult recovery. Dr. Zarate reported that plan is for pt to DC at a future time to inpatient rehab. She is not opposed to diabetes education waiting until pt is at rehab to cover these topics. Diabetes education will continue to follow pt to assess readiness for teaching. URMILA Tucker, RN Clinical Nurse Coordinator - Diabetes Education Nursing Clinical Excellence [facility] [email or web address] [phone] office [phone] pager * Nani Mcelroy RN - 01/03/2018 9:31 AM CDT Associated Order(s): CONSULT WOUND/OSTOMY TEAM Wound Ostomy Note NAME:Beata Kaiser :1965 AGE: 52 y.o. ADMISSION DATE: 12/13/2017 DAYS ADMITTED: LOS: 21 days Reason for Consult/Visit: ostomy education Pt seen 12/31 Will follow up as appropriate for education Nani Mcelroy RN, BSN Wound Ostomy Nursing Consult Service Office: [phone] Pager: [phone] After hours Wound/Ostomy team pager : [phone] * Kalie Sibley MBBS - 12/31/2017 4:44 PM CDT Associated Order(s): CONSULT ENDOCRINOLOGY PHYSICIAN Formatting of this note may be different from the original. Endocrinology Consult Admission Date: 12/13/2017 Principal Problem: Pelvic mass Active Problems: Pelvic mass in female Metabolic acidosis Acute blood loss as cause of postoperative anemia Depression Anxiety DM (diabetes mellitus) (HCC) Hypothyroidism Hemorrhagic shock (HCC) Chronic pain Reason for consult: 52 y.o. female s/p hemipelvectomy and diverting colostomy for chondrosarcoma; history of diabetes and recent blood sugars of 200s-300s Type: Co-management w/signed orders Assessment: 1. 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 Enteral and parenteral Nutrition Nutren 1.5 with a goal rate of 45 cc an hour TPN with dextrose 120 g 4. Obesity Class III 5. Hyperlipidemia On lovastatin 6. Chondorsarcoma Pelvis s/p hemipelvectomy Recommendations: Patient with significant hyperglycemia this admission which is likely due to a combination of both parenteral and enteral nutrition and with the stress of the surgery. Her A1c was 6.5 indicating good glycemic control at home and when controlled diabetes however here she has been hyperglycemic because of the stress from the surgery and partly from nutrition as well She is currently on TPN with 120 g of dextrose in the TPN bag and has 6 units of regular insulin in the bag which is an insulin to carbohydrate ratio 1: 20. However the bag has already been prepared for tonight and we cannot make any changes so we will continue with the same TPN composition for tonight however will consider going up on the insulin in the TPN bag tomorrow She was started on tube feeds with Nutren 1.5 and currently running at 20 cc an hour with goal of 45 cc/hour so we will start her on NPH 8 units every 8 hours to cover the hyperglycemia associated with the tube feeds. Please hold NPH if tube feeds are planned to be held or if tube feeds on hold. Will titrate the dose of NPH further once at goal We will also increase her Lantus to 20 units qhs which is a weight-based dose based on 0.2 units/kg to have basal insulin on board in case feeding is stopped Correction factor changed to mid dose x5 Based on her glycemic control will make further recommendations Discussed with the nursing staff Thank you for this consult; we will continue to follow Patient was seen and discussed with Dr. Payne __ History of Present Illness: Beata Kaiser is a 52 y.o. female with past medical history of hypertension , diabetes type 2, hypothyroidism, depression, chondrosarcoma of the pelvis status post jamil-vulvectomy on 12/14/2017 followed by explorative laparotomy and colostomy placement on 12/30/2017. Endocrine is consulted for the management of diabetes. Patient states she was diagnosed with diabetes about 18 years ago. She had gestational diabetes mellitus and after that W diabetes mellitus type 2. She is always been on the oral agents. She is currently taking metformin thousand milligrams twice a day and jardiance 25 mg daily. Darius she has been taking since September 2017. Previously she has tried GLP-1 analogs including Byetta, Victoza. She states her last A1c with her primary care physician was about 7. Her A1c this admission is 6.5. She is not checking blood sugars at home. She does endorse some numbness and tingling in her feet and on gabapentin. Next line denies any other complication related to the diabetes. He is she was started on the TPN according to the nursing staff last night. She was also started on tube feeds this afternoon and previously has been on the tube feeds this admission. She is also on clear liquid diet. Blood sugars have been ranging in 200-300 range. She also has a history of lung stenting hypothyroidism. She takes 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 mcg daily. The dose was recently increased in September 2017. She sometimes forgets to take the medication. Her TSH this admission was normal. Past Medical History: Diagnosis Date Anxiety Back [...] BLADDER NECK REPAIR, CYSTOSCOPY, performed by Spencer Pucrell MD at [facility] PERIPHERAL VASCULAR SURGERY Left 12/14/2017 LEFT ILIAC EXPOSURE performed by Pio Malagon DO at [facility] SECTION HERNIA REPAIR MANDIBLE SURGERY Family History Problem Relation Age of Onset [...] Social History Narrative No narrative on file Immunizations (includes history and patient reported): There is no immunization history on file for this patient. Allergies: Cephalexin Medications: Prescriptions Prior to Admission Medication Sig aspirin EC 81 mg tablet Take 81 [...] tablet by mouth twice daily. Review of Systems: A 14 point review of system was negative except for: Chest pain , Shortness of breath , fatigue, generalized weakness Physical Exam: Vital Signs: Last Filed In 24 Hours Vital Signs: 24 Hour Range BP: 120/81 (12/31 1624) Temp: 36.6 C (97.8 F) (12/31 1618) Pulse: 106 (12/31 1624) Respirations: 18 PER MINUTE (12/31 1618) SpO2: 95 % (12/31 1624) O2 Delivery: None (Room Air) (12/31 1624) BP: (100-141)/(61-81) Temp: [36.4 C (97.6 F)-37.2 C (99 F)] Pulse: [92-114] Respirations: [16 PER MINUTE-18 PER MINUTE] SpO2: [92 %-97 %] O2 Delivery: None (Room Air) Intensity Pain Scale 0-10 (Pain 1): 10 (12/31/17 0740) General: Alert, cooperative, no distress, appears stated age Head: Normocephalic, without obvious abnormality, atraumatic Eyes: Conjunctivae/corneas clear. ENT: Moist mucous membranes Neck: Supple Lungs:breath Sound diminished Heart: Regular rate and rhythm Abdomen: Soft, colostomy + Extremities: s/p left hemipelvectomy Skin: No rash or lesions noted Pulses: 2+ and symmetric HUMAN RESOURCES RECEPTIONIST: Nonfocal, moves all extremities Lab: Recent Labs 12/29/1745012/30/178 12/31/17 0330 12/31/17 1010 NA 134* 132* 134* 135* K 4.5 4.3 4.3 3.9 CL 100 98 100 102 CO2 29 28 25 24 GAP 5 6 9 9 BUN 14 10 15 15 CR 0.85 0.85 0.86 0.78 GLU 271* 165* 255* 306* CA 8.4* 8.6 8.4* 8.0* ALBUMIN -- 2.2* -- -- MG -- 2.0 2.0 -- PO4 -- 4.1* 4.1* -- Recent Labs 12/29/17 04512/30/17 0458 12/30/17 0835 12/31/17 1010 WBC 16.4* -- 17.0* 13.3* HGB 7.7* -- 8.3* 6.6* HCT 22.8* -- 24.5* 19.4* PLTCT 434* -- 539* 548* AST -- 47* -- -- ALT -- 51 -- -- ALKPHOS -- 127* -- -- Estimated Creatinine Clearance: 96.2 mL/min (based on SCr of 0.78 mg/dL). Vitals: 12/18/17 0600 12/27/17 0654 12/30/17 0820 Weight: 92.5 kg (203 lb 14.8 oz) 98.5 kg (217 lb 2.5 oz) 98.5 kg (217 lb 2.5 oz ) Glucose, POC Date/Time Value Ref Range Status 12/31/2017 1359 299 (H) 70 - 100 MG/DL Final 12/31/2017 1156 268 (H) 70 - 100 MG/DL Final 12/31/2017 0849 351 (H) 70 - 100 MG/DL Final 12/31/2017 0753 297 (H) 70 - 100 MG/DL Final 12/31/2017 0317 253 (H) 70 - 100 MG/DL Final 12/31/2017 0137 249 (H) 70 - 100 MG/DL Final 12/30/2017 2157 211 (H) 70 - 100 MG/DL Final 12/30/2017 1757 207 (H) 70 - 100 MG/DL Final Radiology and other Diagnostics Review: Pertinent radiology reviewed. Kalie Sibley Endocrine Fellow Pager # [phone] 12/31/2017 Associated attestation - Marco Payne MD - 12/31/2017 9:37 PM CDT Formatting of this note may be different from the original. ATTESTATION I personally performed the banuelos portions of the E/M visit, discussed case with resident and concur with resident documentation of history, physical exam, assessment, and treatment plan unless otherwise noted. Staff name: Marco Payne MD Date: 12/31/2017 * Emma Payton RN - 12/31/2017 1:46 PM CDT Diabetes Education follow up: Text paged Harry Moore, Surgery Ortho resident clinical practice consultant ([phone]) to ask if they had considered an Endocrine consult to assist with managing blood glucose readings. Today pt's BG has ranged from 268 to 351 and with the exception of yesterday morning when pt was NPO for surgery, she has been that high for the last couple of days. Emma Payton, BSN, RN Clinical Nurse Coordinator - Diabetes Education Nursing Clinical Excellence [facility] [email or web address] [phone] office [phone] pager * Nneka Thompson RD - 12/29/2017 11:19 AM CDT Associated Order(s): TPN CONSULT Formatting of this note may be different from the original. Nutrition Support Service (NSS) Initial Consult Note Admit Date: 12/13/2017 Service / Attending: Surgery-Ortho / Tamiko Luther MD Diagnosis: recent h/o poor PO intake, possible prolonged NPO s/p OR tomorrow Diet Order: Six small meals, CIB No sugar added Current PN Formula: TBD PN Line: to be placed in OR tomorrow morning PMH: Past Medical History: Diagnosis Date Anxiety Back pain Depression DM (diabetes mellitus) (HCC) Hypothyroidism PSH: Past Surgical History: Procedure Laterality Date SKIN [...] by Pio Malagon DO at [facility]iop SECTION HERNIA REPAIR MANDIBLE SURGERY Meds: Scheduled Meds: acetaminophen (TYLENOL) tablet 1,000 mg 1,000 mg Oral Q6H* buPROPion (WELLBUTRIN) tablet 100 mg 100 mg Oral TID busPIRone (BUSPAR) tablet 15 mg 15 mg Oral BID gabapentin (NEURONTIN) capsule 600 mg 600 mg Oral Q6H insulin aspart U-100 (NOVOLOG FLEXPEN) injection PEN 0-14 Units 0-14 Units Subcutaneous 5 X Day insulin aspart U-100 (NOVOLOG FLEXPEN) injection PEN 6 Units 6 Units Subcutaneous TID w/ meals insulin glargine (LANTUS SOLOSTAR, BASAGLAR) injection PEN 14 Units 14 Units Subcutaneous QHS lactobacillus rhamnosus GG (CULTURELLE) 15 billion cell capsule 1 capsule 1 capsule Oral BID w/meals levothyroxine (SYNTHROID) tablet 175 mcg 175 mcg Oral QDAY before breakfast pantoprazole DR (PROTONIX) tablet 40 mg 40 mg Oral QDAY(21) piperacillin/tazobactam (ZOSYN) 4.5 g/100 mL iso-osmotic IVPB 4.5 g Intravenous Q6H* rivaroxaban (XARELTO) tablet 20 mg 20 mg Oral QDAY w/breakfast vitamin A & D topical ointment Topical BID vitamins, multi w/minerals tablet 1 tablet 1 tablet Oral QDAY Continuous Infusions: PRN and Respiratory Meds:alum/mag hydroxide/simeth Q6H PRN, calcium carbonate Q4H PRN, diazePAM Q6H PRN, diphenhydrAMINE Q6H PRN OR [DISCONTINUED] diphenhydrAMINE Q6H PRN, fentaNYL citrate PF Q1H PRN, ondansetron (ZOFRAN) IV Q6H PRN, oxyCODONE Q3H PRN, pancrelipase 20,000 Units/ sodium bicarbonate 650 mg (#) PRN (Sharepoint Application 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 Rx) Electrolyte Treatments: None given yesterday or today so far Pertinent Labs: Comprehensive Metabolic Profile Lab Results Component Value Date/Time NA 134 (L) 12/29/2017 04:51 AM K 4.5 12/29/2017 04:51 AM CL 100 12/29/2017 04:51 AM CO2 29 12/29/2017 04:51 AM GAP 5 12/29/2017 04:51 AM BUN 14 12/29/2017 04:51 AM CR 0.85 12/29/2017 04:51 AM GLU 271 (H) 12/29/2017 04:51 AM Lab Results Component Value Date/Time CA 8.4 (L) 12/29/2017 04:51 AM PO4 2.1 12/26/2017 04:01 AM ALBUMIN 2.0 (L) 12/22/2017 04:13 AM ALBUMIN 1.9 (L) 12/22/2017 04:13 AM TOTPROT 4.8 (L) 12/22/2017 04:13 AM ALKPHOS 104 12/22/2017 04:13 AM AST 22 12/22/2017 04:13 AM ALT 19 12/22/2017 04:13 AM TOTBILI 0.4 12/22/2017 04:13 AM GFR >60 12/29/2017 04:51 AM GFRAA >60 12/29/2017 04:51 AM Lab Results Component Value Date MG 2.0 12/26/2017 Lab Results Component Value Date PO4 2.1 12/26/2017 Height (cm): Height: 162.6 cm (64") Admit Weight (kg): Weight: 104.8 kg (231 lb 0.7 oz) Current Weight (kg): Weight: 98.5 kg (217 lb 2.5 oz) - 12/27 Desired Body Weight (kg): 55.3 kg (BMI 24.9 - 16% for hemipelvectomy) BMI (kg/m2): 39.6 - prior to surgery Estimated Kcal Needs: 1660 (30 kcals/kg per DBW 55.3 kg due to large surgical wound) Estimated Protein Needs: 100-120 (1.8-2.2 g/kg desired wt of 55.3kg.) Physical Assessment: generalized non-pitting edema to RLE and L stump, Pt appears obese, no overt signs of wasting. Pressure Ulcers: none noted Assessment / PN Indication: Beata Kaiser is a 52 y.o. 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 Pt's weight went down 28# or 12% s/p removal of her leg, 203# (). Latest weight shows a 14# increase in 9 days, likely due to fluid. Pt has continued to have decreased PO intake, with average PO intake of 600 kcals, 33 gm per day per calorie count. Yet Per fellow RD, all of Pt's intake of [place] shakes may not be included in the number. Noted nocturnal TFs ordered 12/27, yet not started until 12/28 due to trouble obtaining post-pyloric corpak placement. Noted only 283 ml of enteral formula recorded as given last night. Pt has been having issues with stool soilage prohibiting wound healing so plan for colostomy placement tomorrow 12/29. NSS consulted for TPN to start tomorrow morning after Pt returns from OR, due to "High serous drain output with low albumin with concern for protein malnutrition and inability for fluid to stay intravascular. Patient undergoing colostomy 12/30 and will likely be NPO or diet restricted for several days. Need nutrition optimization for wound healing of both large hemipelvectomy wound and new colostomy." NSS RD agrees with starting TPN to bridge Pt thru this next surgery and possible post-op ileus. Pt's nutritional status has been sub-optimal for most of her stay and Pt is now at HD #16. Pt does not currently have a central line. Per primary team, plan is to have a line placed in OR tomorrow. Plan: Will start with a low dextrose TPN with "safe start" electrolytes (sodium increased to maintain 1/2NS concentration), as Pt's post-op labs may be quite different than today. Providing goal AAs to promote healing. RD notified RN and IV room PharmD of the planned late TPN start. TPN [facility] overnight until Pt has appropriate central access in the morning. Will add a small amount of insulin in Pt's TPN to help prevent worsening hyperglycemia with IV infusion of dextrose (1 unit to 20 gm dextrose). Will also add additional thiamine due to slight risk of refeeding syndrome. Nonstandard TPN: 65ml/hr - 1560ml total volume Macronutrients: AA 110gm, Dex 120 gm, Lipids 250 ml Lytes/Additives: Na 120 mEq, K 40 mEq, Ca 10 mEq, Mg 8 mEq, Phos 14 mmol, Standard MV and trace elements, All Cl - Thiamine 100mg. Regular insulin 6 units Provides: 1348 kcals (24 kcals/kg DBW), 110 gm AA (2.0 gm/kg DBW) Nneka Thompson MS, RD, LD, [facility] Pager [phone] Office [phone] * Anita Everett RN - 12/28/2017 1:43 PM CDT Associated Order(s): CONSULT WOUND/OSTOMY TEAM Wound Ostomy Note NAME:Beata Kaiser :1965 AGE: 52 y.o. ADMISSION DATE: 12/13/2017 DAYS ADMITTED: LOS: 15 days Reason for Consult/Visit: ostomy marking Assessment/Plan: Principal Problem: Pelvic mass Active Problems: Pelvic mass in female Metabolic acidosis Acute blood loss as cause of postoperative anemia Depression Anxiety DM (diabetes mellitus) (HCC) Hypothyroidism Hemorrhagic shock (HCC) Chronic pain Pt's abdomen assessed supine and sitting for ostomy marking. Due to her body habitus, her pannus favors laying towards her right side. A line was placed below her umbilicus - please do not place an ostomy below this line. Pt has a skin fold at her umbilical line. 2 wylie were made above this line on both sides. The more superior wylie are preferred and if an ostomy can be placed even higher, it will make it easier for pt to see. A pre-op kit was provided for pt to review with her . Topics discussed: frequency of emptying/ changing pouch, how to empty/change pouch, pouch options, how to cut pouch. Explained to pt that an automotive center manager will start teaching once the stoma has been placed. Questions answered. Anita Everett, RN, BSN, CMSRN, CWON Wound Ostomy Nursing Consult Service Office: [phone] Pager: [phone] After Hours Wound/Ostomy Team Pager: [phone] * Emma See, RD - 12/28/2017 12:34 PM CDT Associated Order(s): CONSULT DIETITIAN CLINICAL NUTRITION Clinical Nutrition Follow-Up Summary Nutrition Assessment of Patient: Malnutrition Assessment: Adequately nourished prior to admission Current Oral Intake: Marginally Adequate Estimated Calorie Needs: 1660 (30 kcals/kg per DBW 55.3 kg due to large surgical wound) Estimated Protein Needs: 100-120 (1.8-2.2 g/kg desired wt of 55.3kg.) Oral Diet Order: Six Small Meals Oral Supplement: [place] Breakfast Essentials No Sugar Added, Protein Powder, TID Intake (calories) Daily Average : 600 kilocalories (35% est needs) Intake (protein) Daily Average : 33 grams (33% est needs) Current EN Order: Isosource 1.5 @ 80ml/hr x's 8 hrs ([id number]). At goal will provide: 960 kcal (58% est needs), and 44 g protein (36-44% est needs). Nocturnal EN not yet started 2/2 tube replacement. 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 PMHx significant for DM. Pt's blood sugars have been in the 300s. HbA1c ordered today (12/28). RD following calorie counts. Intake increased. Pt reports she has been drinking 2-3 shakes/day. She likes them made with chocolate CIB, sheila, IC, sheila milk, and 2 protein powders but I spoke to RN and recommendation is for CIB (no sugar added) milk, and 2 protein powders only, no ice cream. She has been having issues with stool soilage prohibiting wound healing so plan for later this week is for colostomy placement. She had corpak placed yesterday but it was in the stomach so it was advanced and now per imaging is in distal duodenum. Consult received for nocturnal TF recs. I agree with current order, but I spoke to RN and asked her to be sure to document protein shakes in flow sheet so they can be counted as part of leslie count. Recommendation: [id number] Consistent Carb Diet. Protein shakes between meals, made with [place] Breakfast Essentials (NO SUGAR ADDED), skim milk, and 2 Protein powders to provide 230kcal and 25 grams protein per shake). Please document shakes in doc flow sheet under intake. Agree with current nocturnal tube feeds. Intervention / Plan: Spoke with RN regarding making shakes without ice cream and adding 2 protein powders. Discussed documentation in doc flow sheet. RD to continue to monitor po intake and tolerance, and now EN intake and tolerance. Nutrition Diagnosis: Increased nutrient needs, specify: (protein,kcal) Etiology: demand for healing Signs & Symptoms: hemipelvectomy, need for wound healing. Inadequate oral intake Etiology: previous possilbe post-op ileus, now decreased appetite-improving Signs & Symptoms: notes,pt report Goals: Patient to consume >75% of meals/supplements Time Frame: Within 72 Hours Status: Not met;Ongoing Emma See, KAYA #[id number]. * Emma Payton RN - 12/28/2017 12:30 PM CDT Associated Order(s): CONSULT DIABETES NURSE EDUCATOR INPATIENT DIABETES EDUCATION TEAM Clinical Excellence Nursing Practice Reason for Consult: New Insulin Discussed Consult with Primary Team: Bedside RNKerline Patient may benefit from: further instruction on lifestyle changes and meal planning/carb counting This consult team does not write orders. Primary Team is responsible for placing orders. Supplies/Resources provided: Medication Chart Met with Beata Kaiser to discuss diabetes management. Given pt's current stage of recovery and anticipated additional surgery, our discussion focused on current medications regimen while in the hospital. RN presented pt with medication overview of two new insulins that have been added to her daily regimen. Teaching on how to draw up insulin and how to administer it will follow. When asked if pt had any specific concerns regarding diabetes management, pt replied "I have a weakness for sweets." Pt lives in a family of six and her does most of the cooking. She is the only person with diabetes so her family doesn't appreciate how she struggles to manage her diabetes. Drier Operator offered to follow up with instruction of meal planning and carb counting. Pt responded that she would be interested in that. DE offered to try and visit at a time when her was visiting so he could listen in on the instruction. DE will continue to follow and instruct as pt's condition allows. Thank you for the consult. Please feel free to contact me at the numbers below if you have any additional questions or concerns. URMILA Tucker, RN Clinical Nurse Coordinator - Diabetes Education Nursing Clinical Excellence [facility] [email or web address] [phone] office [phone] pager * Emma Payton RN - 12/28/2017 8:06 AM CDT Drier Operator spoke with Dr. Marcelino with consulted medicine team to request an order for A1C since there were no recorded values in the last [address] Marcelino to enter order. 0851 Further review of chart indicated pt had received several blood transfusions since admission. Text paged Medicine team to cancel request for lab order for A1C. * Jasper Betts RN - 12/27/2017 12:52 PM CDT Associated Order(s): CONSULT NURSING PAIN MANAGEMENT Formatting of this note may be different from the original. Nursing Pain Management - Initial Consult Pt. Name: Beata Kaiser Admit Date: 12/13/2017 Room: [place] [address] Reason for consult, "Hemipelvectomy, chronic pain, acute post operative pain" Communication: Discussed patient and consult reason primary team over the weekend and nursing prior to interview with patient. Suggestions to Consider: Primary team is responsible for entering orders. Difficult and complex patient. Patient with acute blood lose after surgery invoking prolonged recovery in SICU. Patient now with swelling at surgical site complicating phantom limb sensation and control? Once swelling subsides will phantom limb pain improve? Patient's pain is described as severe on a verbal pain assessment scale. It is described as burning at surgical incision site. She describes pain associated with the ability to feel as if her left leg and foot are crossed over her right knee causing pain in her foot, her description of heaviness was used. Her oxycodone use as increased over the last 48 hours now using a mere 50 mg for a major surgery, noted POD # 13. There are no good studies to date showing that gabapentin is beneficial in management of phantom limb pain. With that being said it and TCAs that seem to be first line agents. Currently she is on no TCA nor a full SSNRI, however she is on a NDRI. Her current dose of gabapentin is at 600 mg every 6 hours which is 2400mg daily. There is concern that gabapentin has little bioavailability in doses greater 800-900 mg per dose. It has a maximum dose of 3600 mg daily. With this being said the gabapentin dose does have some room for increase, again however there are no studies indicating that this will be beneficial. I belief her increase in oxycodone use will be helpful for her surgical pain. Her doses remain at a very minimal dose for the surgery that she had however she is not taking every dose available. Of note opioids have no studies indicating an improvement in phantom limb pain either. There are a few studies showing good outcomes in phantom limb pain with NMDA medications and calcintonin. Virgen K, Anastasiia S, Windsor T, Predavidl H, Castro C, Catarina M, et al. Prevention of phantom limb pain and cortical reorganization in the early phase after amputation in humans. Soc Neurosci Abstr 2001; 28: 280504 NMDA antagonist memantine was used with good results perioperative and acute post-operatively. Calcitonin in phantom limb pain: a double-blind study Author: Ashwin Johnson Journal: Pain ([place]) ISSN: [id number] Date: 09/1991 Volume: 48 Issue: 1 Starting page number: [phone] Calcitonin infusions also showed good outcomes with phantom limb pain basing need for infusions using a JENNIFER scale. I was told that pain anesthesia was approached over the weekend but due to POD# and on anticoagulation they did not offer a block injection. Suggestions consist of the following: Suggest using only 1 intervention at a time. Calcintonin infusions based on the study cited above. Or Memantine 10 mg PO twice daily Or Change gabapentin to the following doses - Gabapentin 800 mg PO twice daily, 7742-8261 - Gabapentin 600 mg PO twice daily, 0600-3621 Anticipated D/C Planning: Non-pharmacological interventions. Multi-modal oral pain regimen. Summary: Ms. 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 Thank you for allowing our service to participate in the care of this patient. Please page with questions/concerns, team pager [phone]. Jasper Betts, MSN, RN- Clinical Nurse Coordinator Pain Management [phone] Current Medication Regimen: Current Facility-Administered Medications: acetaminophen (TYLENOL) tablet 1,000 mg, 1,000 mg, Oral, Q6H*, 1,000 mg at 12/27/17 0825 OR [DISCONTINUED] acetaminophen (TYLENOL) rectal suppository 650 mg, 650 mg, Rectal, Q4H PRN, Adrienne Zarate MD alum/mag hydroxide/simeth (MYLANTA, MAALOX PLUS) oral suspension 30 mL, 30 mL, Oral, Q6H PRN, Adrienne Zarate MD, 30 mL at 12/26/17 1513 buPROPion (WELLBUTRIN) tablet 100 mg, 100 mg, Oral, TID, Tamiko Luther MD, 100 mg at 12/27/17 0826 busPIRone (BUSPAR) tablet 15 mg, 15 mg, Oral, BID, Adrienne Zarate MD, 15 mg at 12/27/17 0826 calcium carbonate (TUMS) chew tablet 500-1,000 mg, 500-1,000 mg, Oral, Q4H PRN, Adrienne Zarate MD, 1,000 mg at 12/25/17 1349 diazePAM (VALIUM) tablet 2.5-5 mg, 2.5-5 mg, Oral, Q6H PRN, Kristie Cruz MD, 5 mg at 12/25/17 0329 diphenhydrAMINE (BENADRYL) capsule 25 mg, 25 mg, Oral, Q6H PRN OR [ DISCONTINUED] diphenhydrAMINE (BENADRYL) injection 25 mg, 25 mg, Intravenous, Q6H PRN, Adrienne Zarate MD, 25 mg at 12/19/17 0424 fentaNYL citrate PF (SUBLIMAZE) injection 50-100 mcg, 50-100 mcg, Intravenous, Q1H PRN, Kristie Cruz MD, 50 mcg at 12/20/17 1012 fluconazole (DIFLUCAN) tablet 200 mg, 200 mg, Oral, QDAY, Dominique Nelson MD , 200 mg at 12/27/17 0826 gabapentin (NEURONTIN) capsule 600 mg, 600 mg, Oral, Q6H, Adrienne Zarate MD, 600 mg at 12/27/17 0825 hyoscyamine (ANASPAZ; NULEV; SYMAX FASTABS; HYOMAX-FT; ED-SPAZ; OSCIMIN) rapid dissolve tablet 0.125 mg, 0.125 mg, Sublingual, Q4H PRN, Darius Dejesus MD insulin aspart U-100 (NOVOLOG FLEXPEN) injection PEN 0-14 Units, 0-14 Units , Subcutaneous, 5 X Day, Natalio Monroy MD, 4 Units at 12/27/17 0833 insulin aspart U-100 (NOVOLOG FLEXPEN) injection PEN 4 Units, 4 Units, Subcutaneous, TID w/ meals, Hood Tellez MD, Stopped at 12/27/17 0758 insulin glargine (LANTUS SOLOSTAR, BASAGLAR) injection PEN 12 Units, 12 Units, Subcutaneous, QHS, Hood Tellez MD, 12 Units at 12/26/17 2127 lactobacillus rhamnosus GG (CULTURELLE) 15 billion cell capsule 1 capsule, 1 capsule, Oral, BID w/meals, Aditya Torrez MD, 1 capsule at 12/26/17 1748 levothyroxine (SYNTHROID) tablet 175 mcg, 175 mcg, Oral, QDAY before breakfast, Tamiko Luther MD, 175 mcg at 12/27/17 0608 metFORMIN (GLUCOPHAGE) tablet 500 mg, 500 mg, Oral, BID w/meals, Luis Sargent MD, 500 mg at 12/26/17 1748 ondansetron (ZOFRAN) injection 4 mg, 4 mg, Intravenous, Q6H PRN, Adrienne Zarate MD oxyCODONE (ROXICODONE, OXY-IR) tablet 5-10 mg, 5-10 mg, Oral, Q3H PRN, Khoi Burt MD, 10 mg at 12/27/[address] (PROTONIX) tablet 40 mg, 40 mg, Oral, QDAY(21), Luis Sargent MD, 40 mg at 12/26/172127 piperacillin/tazobactam (ZOSYN) 4.5 g/100 mL iso-osmotic IVPB, 4.5 g, Intravenous, Q6H*, Dominique Nelson MD, Last Rate: 200 mL/hr at 12/27/17 0835, 4.5 g at 12/27/17 0835 rivaroxaban (XARELTO) tablet 20 mg, 20 mg, Oral, QDAY w/breakfast, Adrienne Zarate MD, Stopped at 12/27/17 0759 vitamin A & D topical ointment, , Topical, BID, Aditya Torrez MD vitamins, multi w/minerals tablet 1 tablet, 1 tablet, Oral, QDAY, Tamiko Luther MD, 1 tablet at 12/26/17 0824 Prior to Admission Analgesic Regimen: Oxycodone 10 mg every 4 hours Recent Prescription History: Patient with many different physicians writing prescriptions due to complex nature I presume. All filled at one pharmacy. Last prescriptions written, [facility] ([id number]) [address] [facility] [address] Dr. Colton Welch 12/03/2017 1 12/03/2017 OXYCODONE HCL 5 MG TABLET 75.0 7 CA ARTI [id number] [facility] ( [id number]) Assessment: (W) Words to describe pain: Burning, I can still feel my leg and foot (I) Intensity of pain: severe Patient's personal pain goal: mild (L) Location of pain: Left lower extremity (D) Duration of pain: constant (A) Aggravating/Alleviating factors: Constant / not much, I think gabapentin is helping Last Bowel Movement: 12/26/2017 Opioid Calculations: Date: [employer] PATTERN GRADER PT to surgery Oxycodone 60 mg Total oral morphine equivalent ~ 60 mg Date: 12/26/2017 Oxycodone 50 mg Total oral morphine equivalent ~ 50 mg Vitals: 12/27/17 0237 12/27/17 0643 12/27/17 0654 12/27/17 0947 BP: 130/67 111/66 102/65 Pulse: 103 96 82 Temp: 36.8 C (98.2 F) 36.7 C (98 F) 36.7 C (98.1 F) SpO2: 100% 95% 95% Weight: 98.5 kg (217 lb 2.5 oz) Height: Allergies Allergen Reactions Cephalexin SEE COMMENTS Face gets red, feels really hot, has tolerated penicillin Basic Metabolic Profile Lab Results Component Value Date/Time NA 133 (L) 12/27/2017 04:31 AM K 3.8 12/27/2017 04:31 AM CL 100 12/27/2017 04:31 AM CO2 27 12/27/2017 04:31 AM GAP 6 12/27/2017 04:31 AM Lab Results Component Value Date/Time BUN 7 12/27/2017 04:31 AM CR 0.83 12/27/2017 04:31 AM GLU 183 (H) 12/27/2017 04:31 AM `Hemogram Lab Results Component Value Date/Time WBC 16.4 (H) 12/27/2017 04:31 AM RBC 2.67 (L) 12/27/2017 04:31 AM HGB 8.1 (L) 12/27/2017 04:31 AM HCT 23.4 (L) 12/27/2017 04:31 AM MCV 87.6 12/27/2017 04:31 AM MCH 30.2 12/27/2017 04:31 AM MCHC 34.5 12/27/2017 04:31 AM RDW 15.0 12/27/2017 04:31 AM PLTCT 359 12/27/2017 04:31 AM MPV 6.9 (L) 12/27/2017 04:31 AM * Syed Wilson MD - 12/26/2017 7:02 PM CDT Associated Order(s): CONSULT COLO-RECTAL SURGERY PHYSICIAN Formatting of this note may be different from the original. [facility] Rectal [facility] Consult 12/26/2017 Patient: Beata Kaiser Admission Date: 12/13/2017, LOS: 13 days Admission Diagnosis: Pelvic mass [R19.00] Date of Service: December 26, 2017 Reason for Consult: Evaluate for diverting colostomy, patient with stool soilage of left hemipelvectomy wound Referring Provider: Tamiko Luther MD Attending Surgeon: Dr Russell, (Covering for Dr Mccollum) Consult Performed by: Ramos Cheatham DO ASSESSMENT: 52 y.o. female with history of left pelvic chondrosarcoma, s/p left hemipelvectomy on 12/14/2017, now with poorly healing wound, stool soilage. PLAN: - ID following for persistent leukocytosis and fevers, patient continues on Vanc /zosyn - Will discuss with Dr Mccollum this week, evaluate for diverting colostomy Patient seen with Dr. Russell (covering for Dr Mccollum), who directed plan of care. Ramos Cheatham DO Pager: [phone] ATTESTATION I personally performed the banuelos portions of the E/M visit, discussed case with resident and concur with resident documentation of history, physical exam, assessment, and treatment plan unless otherwise noted. Staff name: Syed Wilson MD Date: 12/26/2017 __ HPI: Beata Kaiser is a 52 y.o. female with history of left pelvic chondrosarcoma, s/p left hemipelvectomy on 12/14/2017, who has developed a poorly healing wound. She states she has had persistent loose stools, and that the wound is frequently contaminated by this. She is afebrile currently, and denies nausea or vomiting. She states she is considering diverting colostomy. ROS: Complete 12-point comprehensive review of systems positive for what is in the HPI, otherwise entirely Negative. Past Medical History: Diagnosis Date Anxiety Back [...] by Pio Malagon DO at Main OR/Periop SECTION HERNIA REPAIR MANDIBLE SURGERY Medications: No current facility-administered medications on file prior to encounter. Current Outpatient Prescriptions on File Prior to Encounter Medication Sig Dispense Refill aspirin EC 81 mg tablet Take 81 mg by mouth daily. Take with food. buPROPion SR(+) (WELLBUTRIN-SR) 150 mg tablet Take 150 mg by mouth twice daily. busPIRone (BUSPAR) 30 mg tablet Take 30 mg by mouth twice daily. empagliflozin (JARDIANCE) 25 mg tab Take 1 tablet by mouth daily. gabapentin (NEURONTIN) 300 mg capsule Take 1 capsule by mouth three times daily. 90 capsule 1 levothyroxine (SYNTHROID) 175 mcg tablet Take 175 [...] hours as needed Earliest Fill Date: 12/03/17 75 tablet 0 potassium chloride SR (K-DUR) 10 mEq tablet Take 10 mEq by mouth daily. Take with a meal and a full glass of water. rivaroxaban (XARELTO) 15 mg tablet Take 15 mg by mouth twice daily. Take with food. senna/docusate (SENOKOT-S) 8.6/50 mg tablet Take 1 tablet by mouth twice daily. 60 tablet 0 Allergies: Cephalexin Social History Social History Marital status: Spouse [...] of Onset Osteoporosis Mother Arthritis-rheumatoid Maternal Grandmother Vitals: Vital Signs: Last Filed In 24 Hours Vital Signs: 24 Hour Range BP: 136/79 (12/26 1849) Temp: 36.7 C (98.1 F) (12/26 1849) Pulse: 89 (12/26 1849) Respirations: 18 PER MINUTE (12/26 1849) SpO2: 93 % (12/26 1849) O2 Delivery: None (Room Air) (12/26 1849) BP: (108-155)/(59-86) Temp: [36.5 C (97.7 F)-37.1 C (98.7 F)] Pulse: [76-104] Respirations: [17 PER MINUTE-18 PER MINUTE] SpO2: [92 %-97 %] O2 Delivery: None (Room Air) Intensity Pain Scale 0-10 (Pain 1): 4 (12/26/17 1320) Intake/Output: Intake/Output Summary (Last 24 hours) at 12/26/17 1903 Last data filed at 12/26/17 1733 Gross per 24 hour Intake 0 ml Output 6560 ml Net -6560 ml Physical Exam: Well nourished, no distress. Head: Non-traumatic Eyes: PERRL, EOMI bilateral, no scleral Icterus Oropharynx: moist, normal mucous membranes Neck: no thyromegaly, JVD or LAD bilateral Chest: CTA bilateral, normal effort Heart: normal RR, no murmur Abdomen: soft, non-tender, non-distended, no peritoneal signs, no masses Ext: LLE hemipelvectomy incision with eschar extending along the majority of the wound. Mild kimberly-incisional erythema. Skin: warm, dry and intact Neuro: non-focal, grossly intact Psych: normal mood, behavior and judgement Lab/Radiology/Other Diagnostic Tests: Recent Labs 12/24/17 0434 12/24/17 0716 12/25/17 0442 12/26/17 0401 HGB 7.3* 7.4* 8.3* 7.9* HCT 21.3* 21.3* 23.9* 23.5* WBC 16.9* 15.8* 11.8* 11.3* PLTCT 294 291 296 345 NA 126* -- 131* 133* K 3.9 -- 3.6 3.5 CL 92* -- 97* 98 CO2 27 -- 27 27 BUN 9 -- 6* 4* CR 0.57 -- 0.49 0.47 GLU 168* -- 218* 247* CA 7.5* -- 7.5* 7.8* MG -- -- -- 2.0 PO4 -- -- -- 2.1 Glucose: (!) 247 (12/26/17 0401) POC Glucose (Download): (!) 215 (12/26/17 1740) Ramos Cheatham DO Pager:[phone] * Nneka Thompson RD - 12/25/2017 4:52 PM CDT Associated Order(s): CONSULT DIETITIAN CLINICAL NUTRITION Clinical Nutrition Follow-Up Summary Nutrition Assessment of Patient: Malnutrition Assessment: Adequately nourished prior to admission Current Oral Intake: Marginally Adequate Estimated Calorie Needs: 1660 (30 kcals/kg per DBW 55.3 kg due to large surgical wound) Estimated Protein Needs: 100 (1.8 g/kg desired wt of 55.3kg.) Oral Diet Order: Diabetic 0747-8701 Kcal/day (60 g Carb/meal, 30 g Carb/HS snack ) Oral Supplement: Protein Powder, TID Intake (calories) Daily Average : 1093 kilocalories (first day of calorie count) Intake (protein) Daily Average : 43 grams (first day of calorie count) Beata Kaiser is a 52 y.o. 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 (Pt's weight is now down 28# or 12% s/p removal of her leg). RD consulted due to concern for Pt's PO intake not being adequate to aid her healing. Pt appears obese. Pt reports decreased PO intake, she states she feels very full after eating breakfast, and then it is late in the day before she feels hungry again. Pt reports drinking 2 shakes from floor stock today, but did not eat lunch. Pt also reports concern about her bowel movements, she states they are loose and she is unable to control them. Pt reports she may have a colostomy placed to help contain the stool. Per first day of calorie count Pt ate about 1100 kcals (65% of estimated needs), 43 gm protein (43% of estimated needs). Pt states she would like to try eating 6 small meals per day, rather than 3 large ones. She also is not opposed to using nocturnal tube feeds if needed, but would like to try to eat PO for a couple more days first. Noted hyponatremia is improving with NS and free water restriction. RD encouraged intake of shakes and several small meals. Will check back on calorie count results in a couple days to see if Pt's PO intake improves. Recommendation: Please change diet order to Six small meals per day, unsure how this will effect Pts' BG control with her decreased appetite. Noted Pt has occasionally being confused, if confusion worsens, would then place a NG or NJ tube for supplemental TFs. Would recheck Mg and Phos levels, considering other electrolyte abnormalities. Intervention / Plan: RD ordered CIB shakes TID with meals, and daily MVI to aid healing. Discussed increasing PO intake vs nocturnal TFs with Pt Will continue to monitor po intake and tolerance, as well as wt and labs. Nutrition Diagnosis: Nutrition Diagnosis: Increased nutrient needs, specify: (protein) Etiology: demand for healing. Signs & Symptoms: Pt s/p hemipelvectomy Nutrition Diagnosis: Inadequate oral intake Etiology: previous possilbe post-op ileus, now decreased appetite Signs & Symptoms: notes, pt report. Goals: Patient to consume >75% of meals Time Frame: Within 72 Hours Status: Not met;new goal established PO intake to meet >75% nutritional needs Time Frame: Within 72 Hours Nneka Thompson MS, RD, LD, [facility] Pager [phone] Office [phone] * Halima Miranda - 12/24/2017 3:42 PM CDT Associated Order(s): CONSULT PSYCHOLOGY Formatting of this note may be different from the original. [id number] Pt was seen b/s for initial eval with no family or significant others present. Diagnosis: F33.0 Major depressive disorder, recurrent, mild; F41.1 Generalized anxiety disorder Requesting Physician:Elliot/Ashkan Reason for Request: Depression, coping Relevant History: The following history was taken from available medical records unless otherwise indicated. Pt is a 52 y.o., , female, RH admitted on 12/13/2017 to [facility] for a scheduled hemipelvectomy and cystoscopy with bilateral ureteral stent placement on 12/14/17. 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 These were repaired by urology. NGT placed for post-op nutrition and has since been removed. ID and Psychiatry was consulted and IM was consulted for hyponatremia. Medical/Surgical History: Past Medical History: Diagnosis Date [...] by Pio Malagon DO at Main OR/Periop SECTION HERNIA REPAIR MANDIBLE SURGERY Family History: Family History Problem Relation Age of Onset Osteoporosis Mother Arthritis-rheumatoid Maternal Grandmother Social/Vocational History: Pt is and lives with her spouse and 2 of her adult children in [place], [place]. Pt identified her grandchildren and family as members of her social support network. 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 She reported psych history to include recurrent depression and anxiety, which has been managed and helped by Wellbutrin 100mg and Buspar 30mg. She has previously been in psychotherapy (>2 years ago) and did not report history of psych hospitalization, suicide attempt, LD, or SPED. Findings: Pt was alert, oriented, and open/responsive to inquiry. Pt appeared to appropriately provide details regarding personal history, and no significant others were present to provide collateral information. Pt appeared to put forth adequate effort and was cooperative. Speech was WNL and thought processes were connected and logical to content of conversation. Eye contact was within social norms and non-verbal behaviors were appropriate to context. Mood and affect were congruent and ranged from euthymic to dysphoric. Pts reported mood varied today, as she had difficulties with pain and is trying to relax. Pt did not endorse pervasive negative mood, suicidal ideation, or thoughts of harm toward self or others. Sleep was rated as not so good due to pain. Appetite was rated as "so-so." She reported pain to be a 4/10 on eval with medications being effective. She reported having some phantom limb pain frequently. She discussed alterations in mental status over the last few days, noting that she felt disoriented, hot and sweaty, and would fall asleep at random times over the past couple of days, which she felt was due to medications. She discussed that at night she has had challenges with this. She reported hearing people calling her name, and indicated this was frightening. She reported some memory and word-finding difficulties since her surgery. She discussed experiencing depression "all her life" with symptoms including being sad or down, loss of interest, feelings of low self-worth, and low motivation. She reported she has been crying easily since this hospitalization, and that when she cries she feels "weak." She noted history of anxiety, which she felt has been better managed. She discussed having generalized worries and described herself as "excitable." She has coping strategies of taking things one step at a time and has interests in picking pecans, fishing, and being outdoors. She cited mobility and getting through the pain as motivators. She has personal strengths of being strong and determined. Pt was provided with eval results and psychoeducation regarding cognition, pain , mood, and coping. Supportive and processing therapy was provided. Pt's coping skills, personal strengths, and goals/motivators were reviewed and reinforced. Coping/relaxation skills of relaxed breathing were introduced and practiced with the pt. Pt was encouraged to use these as needed. Psychoeducation was provided about psychological and social factors that influence pain and pacing and relaxation techniques. We discussed taking relaxed breaths or using visualization techniqueswhen pt feels tense. Cognitive behavioral techniques were introduced to help pt recognize anxious or depressed cognitions, with cognitive reframing being used to help her find evidence for and against her cognition(s) and to develop alternative cognitions. Pt was encouraged to practice this as needed when feeling anxious or down. Pt's goals for outpatient psychiatry or psychotherapy were supported and I encouraged pt to consider engaging in such services post discharge. I provided psychoeducation regarding the cognitive behavioral model and behavioral activation to pt, highlighting the relationship between behavior, cognition, and emotion. I discussed with them that engaging in more pleasant relaxing activities can help pt to feel better. I encouraged pt to complete tasks throughout the day that she enjoys. Pt acknowledged information and willingness to try skills as needed or as prompted by staff. The intent and utility of testing was relayed, and pt agreed to participate as needed. The purpose and method of the Psychology service, as well as the limits of confidentiality, were described to the pt. The pt verbalized understanding and agreement to participate in the evaluation. Thank you for asking our advice and opinion regarding the care of this pleasant pt. Halima Miranda, Ph.D. Neurorehabilitation Psychology Postdoctoral Fellow Pager #: [phone] * Nani Mcelroy RN - 12/23/2017 1:53 PM CDT Associated Order(s): CONSULT WOUND/OSTOMY TEAM Formatting of this note may be different from the original. Wound Ostomy Note NAME:Beata Kaiser :1965 AGE: 52 y.o. ADMISSION DATE: 12/13/2017 DAYS ADMITTED: LOS: 10 days Reason for Consult/Visit: wound not pressure Assessment/Plan: Principal Problem: Pelvic mass Active Problems: Pelvic mass in female Metabolic acidosis Acute blood loss as cause of postoperative anemia Depression Anxiety DM (diabetes mellitus) (HCC) Hypothyroidism Hemorrhagic shock (HCC) Wounds (NOT for Pressure Injuries) 12/23/17 1345 Left Labia (Active) 12/23/17 1345 Labia Wound Orientation: Left Wound Type: Wound Type:: Wound Description (Comments): Wound Base Assessment Moist;Garber;Yellow 12/23/2017 1:00 PM Surrounding Skin Assessment Garber;Edema 12/23/2017 1:00 PM Wound Length (cm) (Wound Team Only) 7.5 cm 12/23/2017 1:00 PM Wound Width (cm) (Wound Team Only) 2.5 cm 12/23/2017 1:00 PM Wound Depth (cm) (Wound Team Only) 0.1 12/23/2017 1:00 PM Wound Volume (cm^3) (Wound Team Only) 1.875 cm^3 12/23/2017 1:00 PM Number of days: 0 Call from Ortho for reassessment of pt left labia wound and Abdominal skin fold. Left labial wound is pink yellow moist and edematous. Abdominal skin fold is worse in appearance from last assessment. Left side is dry and open to air, as pt is laying on the right side. Medial and right side of skin fold is pink, and yellow with some purple areas. Area ois moist from skin to sin contact. Small amount of serous drainage. RECOMMEND: Wash areas ( labia and abdominal skin fold ) gently with soap and water daily. Labia wound and left lower abdomen- apply thin layer of Vit A&D ointment BID , leave open to air. Abdominal skin fold- apply layer of Aquacel Ag to wound bed, lay ABD pad long way over the Aquacel AQ to keep the skin folds from touching and absorb moisture. Change daily. Primary Team is responsible for placing wound care orders. Will continue to follow. Nani Mcelroy RN, BSN Wound Ostomy Nursing Consult Service Office: [phone] Pager: [phone] After hours Wound/Ostomy team pager : [phone] * Berto Caldwell, - 12/23/2017 12:20 PM CDT Associated Order(s): CONSULT ADULT PSYCHIATRY PHYSICIAN Formatting of this note may be different from the original. PSYCHIATRY CONSULT NOTE Room/Bed: [id number] [place] [address] Admission Date: 12/13/2017 LOS: 10 days Consult type: Opinion with orders Reason for Consult: Depression "S/p hemipelvectomy with tumor invasion into veins, currently on antidepressants however continues to show symptoms. Assist in any further tx options or optimization." Assessment: 1. Adjustment disorder with mixed anxiety and depression 2. Other depression 3. Other anxiety Recommendations: Given recent surgery and medical cormorbidities, patient at high risk for delirium. Monitor for this and recommend delirium protocol. Discussed potential to increase Wellbutrin and change to XL formulation, however patient would like to try therapy as adjunct to current regimen prior to making an adjustment as these have been working for her as an outpatient. Continue wellbutrin 100mg po TID, Buspar 30mg po BID for mood/anxiety. QTC 447 on 12/15. Recommend psychology consultation for coping Delirium protocol: - Avoid benzodiazepines, opiates and anticholinergics if possible as can contribute/cause delirium. - Frequent reorientation, use of clocks/calendars, verbal reminders of current location and situation. - A calm, comfortable environment that includes familiar objects from home. - Involvement of family members. - Uninterrupted periods of sleep at night, with low levels of noise and minimal light. - Open blinds during the day to promote daytime alertness and a regular sleep- wake cycle. Seen and discussed with: Dr. Negron Please feel free to contact us with any additional questions or concerns by paging the consult team between 8am and 5pm on weekdays and between 8am and 3pm on weekends at [phone]. Otherwise, page the global consumer sector vice president clinical practice consultant. Chief Concern: "feeling a little disoriented" History of Present Illness: Beata Kaiser is a 52 y.o. female with a past psychiatric history of anxiety Patient endorses confusion, difficulty with memory. She notes some worry about recent surgery and prognosis. Patient notes a history of depression at times as well as feelings of being overwhelmed with intermittent periods of passive SI ( denies ever having thoughts to end her life or plan) however symptoms do not meet criteria for MDD as they were relatively short lived. She reports wellbutrin and buspar have worked well and "kept me strong" although endorses depression since her surgery. She has been able to participate in PT however endorses feelings that she is "not doing good enough" and appears to feel guilty about this. Sleep/energy/appetite are ok. She becomes tearful and notes following surgery she had thoughts of wishing she was not alive noting pain as an exacerbation. She denies having those thoughts now and states she would never harm herself and would be able to alert staff if these thoughts return. Patient expresses hope that she will be more mobile and get to spend time with her grandchildren, as well as possibly returning to some form of work. Patient reports anxiety has been a problem for her and reports taking medication for this. She expresses a hx of excessive worry, fear of natural disasters (tornado ) however denies excessive worries keeping her up at night or somatic symptoms associated with anxiety. She denies AVH when awake - does describe feeling that she was moving when asleep since hospitalized however this has resolved. Denies paranoia. She denies feeling on edge or having nightmares. Denies significant sx of bipolar mood disorder. Access to firearms? denies Past Psychiatric History: - Current psychiatrist: denies She has seen a therapist in the past - Previous admissions: denies - Previous meds: - Current meds: Wellbutrin, buspar - Previous suicide attempts: denies Family Psychiatric History: Daughter: anxiety Daughter: depression Substance Use: - Tobacco: Denies - Alcohol: Denies - Illicit Drugs: Denies Psychosocial/Substance History: Patient , lives with her , oldest and youngest daughter. Has 3 children. Notes having 3 grandchildren. 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 Social History Social History Marital status: Spouse name: N/A Number of children: N/A Years of education: N/A Social History Main Topics Smoking status: Never Smoker Smokeless tobacco: Never Used Alcohol use No Drug use: No Sexual activity: Not on file Other Topics Concern Not on file Social History Narrative No narrative on file Past Medical/Surgical History: Past Medical History: Diagnosis Date Anxiety Back pain Depression DM (diabetes mellitus) (HCC) Hypothyroidism : Past Surgical History: Procedure Laterality Date SKIN [...] by Pio Malagon DO at Main OR/Periop SECTION HERNIA REPAIR MANDIBLE SURGERY : Home Medications: Prescriptions Prior to Admission Medication Sig Dispense Refill Last Dose aspirin EC 81 mg tablet Take 81 mg by mouth daily. Take with food. 2017 buPROPion SR(+) (WELLBUTRIN-SR) 150 mg tablet Take 150 mg by mouth twice daily. 11/29/2017 busPIRone (BUSPAR) 30 mg tablet Take 30 mg by mouth twice daily. 2017 empagliflozin (JARDIANCE) 25 mg tab Take 1 tablet by mouth daily. 2017 gabapentin (NEURONTIN) 300 mg capsule Take 1 capsule by mouth three times daily. 90 capsule 1 levothyroxine (SYNTHROID) 175 mcg tablet Take 175 mcg by mouth daily. 11/29 lisinopril (PRINIVIL; ZESTRIL) 10 mg tablet Take 10 mg by mouth daily. 08/2018 lovastatin(+) (MEVACOR) 40 mg tablet Take 40 mg by mouth at bedtime daily. 11/29/2017 metFORMIN (GLUCOPHAGE) 1,000 mg tablet Take 1,000 mg by mouth twice daily. 11/29/2017 oxyCODONE (ROXICODONE, OXY-IR) 5 mg tablet Take 1-2 tablets by mouth every 4 hours as needed Earliest Fill Date: 12/03/17 75 tablet 0 potassium chloride SR (K-DUR) 10 mEq tablet Take 10 mEq by mouth daily. Take with a meal and a full glass of water. 11/29/2017 rivaroxaban (XARELTO) 15 mg tablet Take 15 mg by mouth twice daily. Take with food. 12/12/2017 senna/docusate (SENOKOT-S) 8.6/50 mg tablet Take 1 tablet by mouth twice daily. 60 tablet 0 Hospital Medications: Scheduled Meds: acetaminophen (TYLENOL) tablet 1,000 mg 1,000 mg Oral Q6H* buPROPion (WELLBUTRIN) tablet 100 mg 100 mg Oral TID busPIRone (BUSPAR) tablet 30 mg 30 mg Oral BID fluconazole (DIFLUCAN) tablet 200 mg 200 mg Oral QDAY gabapentin (NEURONTIN) capsule 800-1,200 mg 800-1,200 mg Oral TID insulin aspart U-100 (NOVOLOG FLEXPEN) injection PEN 0-14 Units 0-14 Units Subcutaneous 5 X Day levothyroxine (SYNTHROID) tablet 175 mcg 175 mcg Oral QDAY before breakfast metFORMIN (GLUCOPHAGE) tablet 500 mg 500 mg Oral BID w/meals pantoprazole DR (PROTONIX) tablet 40 mg 40 mg Oral QDAY(21) piperacillin/tazobactam (ZOSYN) 4.5 g/100 mL iso-osmotic IVPB 4.5 g Intravenous Q6H* polyethylene glycol 3350 (MIRALAX) packet 17 g 1 packet Oral QDAY rivaroxaban (XARELTO) tablet 20 mg 20 mg Oral QDAY w/breakfast vancomycin (VANCOCIN) 1,500 mg in dextrose 5% (D5W) IVPB 15 mg/kg Intravenous Q12H* And vancomycin, pharmacy to manage 1 each Service Per Pharmacy Continuous Infusions: PRN and Respiratory Meds:alum/mag hydroxide/simeth Q6H PRN, calcium carbonate Q4H PRN, diazePAM Q6H PRN, diphenhydrAMINE Q6H PRN OR [DISCONTINUED] diphenhydrAMINE Q6H PRN, fentaNYL citrate PF Q1H PRN, hyoscyamine Q4H PRN, ondansetron (ZOFRAN) IV Q6H PRN, oxyCODONE Q3H PRN : Allergies: Cephalexin Review of Systems: A 14 point review of systems was negative except for: Musc: pain GI: sores around catheter site reported Psych: depression/anxiety Integument: rash Neuro: fingertip numbness Vital Signs: Last Filed in 24 hours Vital Signs: 24 hour Range BP: 95/64 (12/23 1018) Temp: 38.9 C (102 F) (12/23 1018) Pulse: 111 (12/23 1018) Respirations: 18 PER MINUTE (12/23 1018) SpO2: 94 % (12/23 1018) O2 Delivery: None (Room Air) (12/23 1018) BP: (89-117)/(49-64) Temp: [36.4 C (97.6 F)-38.9 C (102 F)] Pulse: [102-119] Respirations: [16 PER MINUTE-18 PER MINUTE] SpO2: [93 %-98 %] O2 Delivery: None (Room Air) MENTAL STATUS EXAMINATION General/Constitutional: appears stated age, dressed in hospital attire, appears fatigued Eye Contact: present Behavior: Calm, cooperative; appropriate for conversation, intermittently tearful appropriately Speech: soft, barely audible at times, regular tone. Mood: depressed Affect: congruent Thought Process: Linear and goal directed Thought Content: denies SI, HI. No evidence of delusions Perception: Denies AVH Associations: Intact Insight/Judgment: fair/fair Orientation: AAOx2 (name, year) Recent and remote memory: fair Attention span and concentration: fair, appropriate for conversation Cognition: average Language: turkish, fluent Fund of knowledge and vocabulary: average Physical Exam: Neuro: No gross neurologic deficits. Musculoskeletal: no abnormal movements noted, recent hip hemipelvectomy Lab/Radiology/Other Diagnostic Tests: 24-hour labs: Results for orders placed or performed during the hospital encounter of (from the past 24 hour(s)) POC GLUCOSE Collection Time: 12/22/17 5:50 PM Result Value Ref Range Glucose, POC 376 (H) 70 - 100 MG/DL POC GLUCOSE Collection Time: 12/22/17 9:17 PM Result Value Ref Range Glucose, POC 303 (H) 70 - 100 MG/DL CBC Collection Time: 12/23/17 7:29 AM Result Value Ref Range White Blood Cells 20.8 (H) 4.5 - 11.0 K/UL RBC 2.80 (L) 4.0 - 5.0 M/UL Hemoglobin 8.3 (L) 12.0 - 15.0 GM/DL Hematocrit 24.7 (L) 36 - 45 % MCV 88.2 80 - 100 FL MCH 29.5 26 - 34 PG MCHC 33.4 32.0 - 36.0 G/DL RDW 14.8 11 - 15 % Platelet Count 336 150 - 400 K/UL MPV 7.2 7 - 11 FL BASIC METABOLIC PANEL Collection Time: 12/23/17 7:29 AM Result Value Ref Range Sodium 127 (L) 137 - 147 MMOL/L Potassium 4.2 3.5 - 5.1 MMOL/L Chloride 94 (L) 98 - 110 MMOL/L CO2 27 21 - 30 MMOL/L Anion Gap 6 3 - 12 Glucose 193 (H) 70 - 100 MG/DL Blood Urea Nitrogen 9 7 - 25 MG/DL Creatinine 0.72 0.4 - 1.00 MG/DL Calcium 7.8 (L) 8.5 - 10.6 MG/DL eGFR Non >60 >60 mL/min eGFR >60 >60 mL/min POC GLUCOSE Collection Time: 12/23/17 9:35 AM Result Value Ref Range Glucose, POC 165 (H) 70 - 100 MG/DL POC GLUCOSE Collection Time: 12/23/17 11:00 AM Result Value Ref Range Glucose, POC 174 (H) 70 - 100 MG/DL Berto Caldwell DO Associated attestation - Adrienne Negron DO - 12/23/2017 2:29 PM CDT Formatting of this note may be different from the original. ATTESTATION I personally performed the banuelos portions of the E/M visit, discussed the case with the resident and concur with resident documentation of history, physical exam, assessment, and treatment plan unless otherwise noted. I personally participated in development of the plan of care. Please feel free to contact us with any additional questions or concerns by paging the consult team between 8am and 5pm on weekdays and between 8am and 3pm on weekends [phone]. Otherwise, page the global consumer sector vice president clinical practice consultant. Staff name: Adrienne Negron DO Date: 12/23/2017 * Nani Lynch DO - 12/22/2017 1:53 PM CDT Associated Order(s): CONSULT INFECTIOUS DISEASES PHYSICIAN Formatting of this note may be different from the original. Infectious Diseases Initial Consult Today's Date: 12/22/2017 Admission Date: 12/13/2017 Reason for this consultation: Consult Type: Co-Management w/Signed Orders Reason for consult S/p hemipelvectomy 12/14 for chondrosarcoma, inreasing leukocytosis w/out clear source Assessment: # Fever, leukocytosis - fever and leukocytosis from 12/20/17 - 4/3 L lower lobe infiltrate - presumptive aspiration pna vs. Hospital- acquired pneumonia - 12/20/17 C.diff negative # Candiduria - 12/21/17 UA: wbc 2-10, negative nitrite, 1+ luukocytes, Culture > 100,000 Aracely sp # s/p hemipelvectomy for Chondrosarcoma - 11/25/17 [...] and repair of urethral injury, Vaginal closure. # DVT - 11/30/17 IVC filter for DVT within the external iliac vein # Obese # HTN # DM # Hypothyroidism # Depression # Generalized pain # abx allergy - allergic history to Cephalexin 'years ago' with skin rash and hot flash - tolerated Penicillin when she had dental caries Recommendations: - Check LFT, add differential to CBC and Sputum culture (ordered) - Start iv Piperacillin/tazobactam 4.5g q6h for possible hospital acquired pneumonia. Discontinue iv Clindamycin (ordered). - Start Fluconazole 200mg daily for 7 days for Candiduria (ordered) as per urology cannot change out melchor cath yet given recent bladder repair - Follow up culture results - Monitor temp and WBC count - Watch for antimicrobials toxicity and side effects. Seen and discussed with Dr. Lynch We'll follow I have seen, personally evaluated, and discussed the patient's care with Dr. Nelson, Infectious Diseases Fellow. I agree with the subjective notations, objective findings and agree with the plan of care as documented in this note with the exceptions noted. Nani Lynch, Division of Infectious Diseases Pager [phone] History of Present Illness Beata Kaiser is a 52 y.o. female s/p hemipelvectomy for chondrosarcoma on . ID consulted for fever and leukocytosis. Her PMH includes obese, HTN, DM, hypothyroidism,depression, generalized pain. She had allergic history with Cephalexin 'years ago' with skin rash and hot flash. She was tolerate Penicillin when she had dental caries. About current medical history, she had had over 1 year history of low back pain. She developed left leg swelling and radiation pain.MRI of the pelvis demonstrated a large lesion throughout the entire left hemipelvis that appeared to be centered within the ilium. She underwent open biopsy on 11/30/17 which was returned as Chondrosarcoma. The MRI also revealed DVT within the external iliac vein so that IVC filter was also placed on 11/30/17. Staging CT chest on 11/26/17 demonstrated few small pulmonary nodules. Thoracic surgery recommended that the pelvic lesion be addressed first and they will resect the masses in the chest later. She was hospitalized on 12/13/17 for scheduled left hemipelvectomy. OR 12/14/17: left hemipelvectomy, jamil sacrectomy was performed. During this surgery, she was complicated with bladder and urethral injury: "After the resection of the pelvis had been performed, there was noted to be a small cystotomy as well as urethral injury". Cystoscopy with left ureteral stent insertion. Bladder neck repair. Urethroplasty and repair of urethral injury. Vaginal closure was also performed at the same time. After the surgery, she was fine. Wbc was to 11.2 on 12/16. However, she started leukocytosis on 12/17 up to 16.8. Developed fever up to 38.3 on 12/20. ROS Positive with fever, dizziness, occasional cough/sputum, nausea, abdominal bloating, diarrhea Negative with headache, rhinorrhea, sore throat , SOB, chest pain, vomiting, abdominal pain, joint pain. Melchor in place 12/20 C.diff negative 12/21 UA wbc 2-10, negative nitrite, 1+ luukocytes, Urine culture > 100,000 Aracely sp 12/21 CXR Increased opacity in left lung base, compatible with atelectasis and/or pneumonia. Antimicrobial Start date End date Erythromycin 12/13 Neomycin 12/13 12/13 Polymyxin B 12/14 12/14 Gentamycin 12/14 12/15 Clindamycin 12/14 active Estimated Creatinine Clearance: 103.6 mL/min (based on SCr of 0.6 mg/dL). Past Medical History Past Medical History: Diagnosis [...] by Pio Malagon DO at Main OR/Periop SECTION HERNIA REPAIR MANDIBLE SURGERY Social History Marital status/area of residence: lives with her Job/occupation: [employer] Travel history: [place] in Sep 2016 Environmental/outdoor/food exposures: hospitalized from 12/13/17 Recent ill contacts: none TB exposure: none Drugs of abuse: none Social History Substance Use Topics Smoking status: Never Smoker Smokeless tobacco: Never Used Alcohol use No Family History Family History Problem Relation Age of Onset Osteoporosis Mother Arthritis-rheumatoid Maternal Grandmother Allergies Allergies Allergen Reactions Cephalexin SEE COMMENTS Face gets red, feels really hot Review of Systems A comprehensive 14-point review of systems was negative with exception of: nausea, abdominal bloating, diarrhea Medications Scheduled Meds: acetaminophen (TYLENOL) tablet 1,000 mg 1,000 mg Oral Q6H* bisacodyl (DULCOLAX) rectal suppository 10 mg 10 mg Rectal ONCE buPROPion (WELLBUTRIN) tablet 100 mg 100 mg Oral TID busPIRone (BUSPAR) tablet 30 mg 30 mg Oral BID clindamycin (CLEOCIN) 600 mg/D5W 50 mL IVPB 600 mg Intravenous Q8H* gabapentin (NEURONTIN) capsule 800-1,200 mg 800-1,200 mg Oral TID insulin aspart U-100 (NOVOLOG FLEXPEN) injection PEN 0-14 Units 0-14 Units Subcutaneous 5 X Day levothyroxine (SYNTHROID) tablet 175 mcg 175 mcg Oral QDAY before breakfast polyethylene glycol 3350 (MIRALAX) packet 17 g 1 packet Oral QDAY rivaroxaban (XARELTO) tablet 20 mg 20 mg Oral QDAY w/breakfast Continuous Infusions: sodium chloride 0.9 % infusion 125 mL/hr at 12/22/17 1259 PRN and Respiratory Meds:alum/mag hydroxide/simeth Q6H PRN, calcium carbonate Q4H PRN, diazePAM Q6H PRN, diphenhydrAMINE Q6H PRN OR [DISCONTINUED] diphenhydrAMINE Q6H PRN, fentaNYL citrate PF Q1H PRN, hyoscyamine Q4H PRN, ondansetron (ZOFRAN) IV Q6H PRN, oxyCODONE Q3H PRN Physical Examination Vital Signs: Last Vital Signs: 24 Hour Range BP: 117/64 (12/22 1326) Temp: 37.6 C (99.7 F) (12/22 102) Pulse: 106 (12/22 1326) Respirations: 18 PER MINUTE (12/22 1021) SpO2: 96 % (12/22 1021) O2 Delivery: None (Room Air) (12/22 1021) BP: (110-131)/(45-77) Temp: [36.9 C (98.4 F)-38.2 C (100.7 F)] Pulse: [101-117] Respirations: [16 PER MINUTE-18 PER MINUTE] SpO2: [93 %-96 %] O2 Delivery: None (Room Air) General appearance: obese, alert, oriented, NAD, depressed mood HENT: mucus membranes moist, no oral lesions/thrush Eyes: PERRL, EOM grossly intact, Conj nl Neck: supple, no lymphadenopathy Lungs: no wheezing, rhonchi, rales appreciated Heart: Regular rhythm, reg rate, with no murmur, rub, gallop Abdomen: hyperactive garcia sounds, moderate distended, soft, non-tender Ext: No right leg edema, calf tenderness, no joint swelling, s/p hemipelvectomy , Skin: subcutaneous hemorrhage from wound site along with abdominal punnus dressing s/p left hemipelvectomy dressing to large bump at left abdominal area Lymph: no cervical, axillary or inguinal adenopathy Lines: Carlos Manuel torres drain Indwelling catheter Peripheral iv Lab Review Hematology Recent Labs 12/20/17 0310 12/21/17 0438 12/22/17 0413 WBC 18.8* 20.1* 22.2* HGB 10.4* 9.3* 8.5* HCT 30.9* 26.8* 24.1* PLTCT 394 356 349 Chemistry Recent Labs 12/21/17 0438 12/21/17 1133 12/22/17 0413 NA 123* 123* 127* K 4.1 4.5 4.2 CL 89* 89* 93* CO2 26 26 26 BUN 10 11 9 CR 0.56 0.82 0.60 GFR >60 >60 >60 GLU 152* 245* 142* CA 7.8* 7.7* 7.8* ALBUMIN -- -- 2.0* Microbiology, Radiology and other Diagnostics Review Microbiology data reviewed. Pertinent radiology images viewed. - CXR 12/21/17 Increased opacity in left lung base, compatible with atelectasis and/or pneumonia. Dominique Nelson MD Pager [phone] Infectious Diseases Fellow * Nani Mcelroy RN - 12/21/2017 12:07 PM CDT Associated Order(s): CONSULT WOUND/OSTOMY TEAM Wound Ostomy Note NAME:Beata Kaiser :1965 AGE: 52 y.o. ADMISSION DATE: 12/13/2017 DAYS ADMITTED: LOS: 8 days Reason for Consult/Visit: wound not pressure Assessment/Plan: Principal Problem: Pelvic mass Active Problems: Pelvic mass in female Metabolic acidosis Acute blood loss as cause of postoperative anemia Depression Anxiety DM (diabetes mellitus) (HCC) Hypothyroidism Hemorrhagic shock (HCC) 52 y.o. female Hx of hypothyroidism and non-insulin dependent diabetes mellitus admitted to [facility] on 12/13/17 for scheduled left hemipelvectomy for chondrosarcoma. Wound consult for concern regarding "moisture breakdown around her surgical incisions and panus, but the left labial area has an open wound" PER ORTHO NOTE: Maintain dressings, ortho to manage Would defer all wound concerns regarding surgical wounds to ORTHO/sugery. [employer] is appropriate in skin folds/pannus Wound team will sign off Nani Mcelroy RN, BSN Wound Ostomy Nursing Consult Service Office: [phone] Pager: [phone] After hours Wound/Ostomy team pager : [phone] * Luis Sargent MD - 12/21/2017 9:49 AM CDT Associated Order(s): CONSULT INTERNAL MEDICINE PHYSICIAN Formatting of this note may be different from the original. General Consult Note Admission Date: 12/13/2017 LOS: 8 days Reason for Consult: Hyponatremia Consult type: Opinion with orders Assessment/Plan Beata Kaiser is a 52 y.o. female Hx of hypothyroidism and non-insulin dependent diabetes mellitus who presented to [facility] on 12/13/17 for scheduled left hemipelvectomy for chondrosarcoma. Pt underwent open biopsy of left pelvis previously on 11/29. Pt underwent scheduled hemipelvectomy on 12/14/17 now has hyponatremia NA 123 Worsening Hyponatremia : likely due to hypovolemia , SIRS , sepsis ? 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 An IVC filter was placed recently Plan : Start IV fluids -ordered Urine osmolality and urine sodium ordered ( addendum , urine sodium less than 10 consistent with dehydration ) Repeat BMP to confirm hyponatremia ,check serum osmolality , serum cortisol and TSH ordered Check lactic acid ordered ,UA , and chest X-ray - ordered May start metformin if lactic acid is normal Thank you for the consult. Note: All patient care calls should be directed first to the primary service. If the primary service needs further assistance, the service should page [phone] (24 hours a day/7 days a week) to discuss the case. History of Present Illness: Beata Kaiser is a 52 y.o. female Hx of hypothyroidism and non-insulin dependent diabetes mellitus who presented to [facility] on 12/13/17 for scheduled left hemipelvectomy for chondrosarcoma. Pt underwent open biopsy of left pelvis previously on 11/29. Pt underwent scheduled hemipelvectomy on 12/14/17 now has hyponatremia NA 123. Patient feels tired today, she is having hot flashes and sweating, she has not been out of bed since surgery. Patient reported that her oral intake is fair but she feels thirsty. She eats about 50% of her meals. She takes oral medications for diabetes mellitus and they have been on hold. Patient sodium has been slowly dropping and today is 123. Patient reported no nausea no vomiting no diarrhea today she had 2 loose bowel movements yesterday Past Medical History: Diagnosis Date Anxiety Back [...] by Pio Malagon DO at Main OR/Periop SECTION HERNIA REPAIR MANDIBLE [...] of Onset Osteoporosis Mother Arthritis-rheumatoid Maternal Grandmother Allergies: Cephalexin Scheduled Meds: acetaminophen (TYLENOL) tablet 1,000 mg 1,000 mg Per NG tube Q6H* buPROPion (WELLBUTRIN) tablet 100 mg 100 mg Per NG tube TID busPIRone (BUSPAR) tablet 30 mg 30 mg Per NG tube BID clindamycin (CLEOCIN) 600 mg/D5W 50 mL IVPB 600 mg Intravenous Q8H* gabapentin (NEURONTIN) capsule 1,200 mg 1,200 mg Oral TID insulin aspart U-100 (NOVOLOG FLEXPEN) injection PEN 0-14 Units 0-14 Units Subcutaneous 5 X Day levothyroxine (SYNTHROID) tablet 175 mcg 175 mcg Per NG tube QDAY before breakfast rivaroxaban (XARELTO) tablet 20 mg 20 mg Oral QDAY w/breakfast Continuous Infusions: PRN and Respiratory Meds:alum/mag hydroxide/simeth Q6H PRN, diazePAM Q6H PRN, diphenhydrAMINE Q6H PRN OR [DISCONTINUED] diphenhydrAMINE Q6H PRN, fentaNYL citrate PF Q1H PRN, hyoscyamine Q4H PRN, ondansetron (ZOFRAN) IV Q6H PRN, oxyCODONE Q3H PRN Review of Systems: Constitutional: fever , diaphoresis ,fatigue Eyes: negative Ears, nose, mouth, throat, and face: thirst Respiratory: negative Cardiovascular: negative Gastrointestinal: negative Genitourinary:negative Integument/breast: negative Hematologic/lymphatic: negative Musculoskeletal:negative Neurological: negative Behavioral/Psych: negative Vital Signs: Last Filed in 24 hours Vital Signs: 24 hour Range BP: 109/65 (12/21 533) Temp: 36.7 C (98.1 F) (12/21 533) Pulse: 116 (12/21 533) Respirations: 18 PER MINUTE (12/21 533) SpO2: 94 % (12/21 533) O2 Delivery: None (Room Air) (12/21 533) BP: (101-131)/(54-76) Temp: [36.7 C (98.1 F)-38.3 C (101 F)] Pulse: [111-124] Respirations: [16 PER MINUTE-18 PER MINUTE] SpO2: [93 %-97 %] O2 Delivery: None (Room Air) Physical Exam: Gen: alert and oriented, cooperative , looks diaphoretic Head: Normocephalic, without obvious abnormality, atraumatic Eyes: conjunctivae/corneas clear. PERRL, EOM's intact, Throat: Lips, mucosa, and tongue normal. Teeth and gums normal Neck: supple, symmetrical, trachea midline, no adenopathy, no JVD, no bruits, Back: symmetric, no curvature. ROM normal. No CVA tenderness. Lungs: clear to auscultation bilaterally, no wheezes, rales, rhonchi Heart: regular rate and rhythm, S1, S2 normal, no murmur, click, rub or gallop Abdomen: soft, non-tender. Bowel sounds normal. No masses, no organomegaly, non- distended Extremities: LLE hemipelvectomy, dressings c/d/i drain in place , flap in left lower abdomen Neurologic: Grossly normal Alert and oriented X 3, normal strength and tone. Skin: Skin color, texture, turgor normal. No rashes or lesions Lymph nodes: Cervical, supraclavicular nodes normal. Lab/Radiology/Other Diagnostic Tests: 24-hour labs: Results for orders placed or performed during the hospital encounter of (from the past 24 hour(s)) POC GLUCOSE Collection Time: 12/20/17 11:30 AM Result Value Ref Range Glucose, POC 208 (H) 70 - 100 MG/DL C DIFFICILE BY PCR Collection Time: 12/20/17 1:40 PM Result Value Ref Range Battery Name C DIFFICILE PCR Specimen Description FECES Special Requests NONE C. Difficile Toxin B PCR NEGATIVE-wait 7 days to repeat test Report Status FINAL 12/20/2017 POC GLUCOSE Collection Time: 12/20/17 6:47 PM Result Value Ref Range Glucose, POC 245 (H) 70 - 100 MG/DL POC GLUCOSE Collection Time: 12/20/17 9:27 PM Result Value Ref Range Glucose, POC 263 (H) 70 - 100 MG/DL POC GLUCOSE Collection Time: 12/21/17 2:54 AM Result Value Ref Range Glucose, POC 157 (H) 70 - 100 MG/DL CBC Collection Time: 12/21/17 4:38 AM Result Value Ref Range White Blood Cells 20.1 (H) 4.5 - 11.0 K/UL RBC 3.04 (L) 4.0 - 5.0 M/UL Hemoglobin 9.3 (L) 12.0 - 15.0 GM/DL Hematocrit 26.8 (L) 36 - 45 % MCV 88.1 80 - 100 FL MCH 30.6 26 - 34 PG MCHC 34.8 32.0 - 36.0 G/DL RDW 14.4 11 - 15 % Platelet Count 356 150 - 400 K/UL MPV 6.8 (L) 7 - 11 FL BASIC METABOLIC PANEL Collection Time: 12/21/17 4:38 AM Result Value Ref Range Sodium 123 (L) 137 - 147 MMOL/L Potassium 4.1 3.5 - 5.1 MMOL/L Chloride 89 (L) 98 - 110 MMOL/L CO2 26 21 - 30 MMOL/L Anion Gap 8 3 - 12 Glucose 152 (H) 70 - 100 MG/DL Blood Urea Nitrogen 10 7 - 25 MG/DL Creatinine 0.56 0.4 - 1.00 MG/DL Calcium 7.8 (L) 8.5 - 10.6 MG/DL eGFR Non >60 >60 mL/min eGFR >60 >60 mL/min OSMOLALITY Collection Time: 12/21/17 4:38 AM Result Value Ref Range Osmolality 258 (L) 280 - 307 MOSMOL/KG POC GLUCOSE Collection Time: 12/21/17 8:50 AM Result Value Ref Range Glucose, POC 136 (H) 70 - 100 MG/DL Pertinent radiology reviewed. Luis Sargent MD Pager [phone] * Hawk Jennings MD - 12/20/2017 11:12 AM CDT Associated Order(s): CONSULT REHABILITATION MEDICINE PHYSICIAN Formatting of this note may be different from the original. Physical Medicine & Rehabilitation Consult Note Date of Service: 12/20/2017 Beata Kaiser is a 52 y.o. female. : 1965 MRN# : [id number] Primary Insurance: [facility] Secondary Insurance: Tertiary Insurance: Financial Class: Commercial Date of Admission: 12/13/2017 Referring Physician: Tamiko Luther MD Reason for Consult: evaluate for Post-Acute Rehab/Placement Precautions: Fall Active Problems S/p hemipelvectomy for left pelvic chondrosarcoma Cystostomy and urethral injuries, s/p repair Acute post-operative pain Diabetes mellitus type 2 Hypothyroidism Impaired mobility and ADLs Gait abnormality Assessment & Plan Beata Kaiser is a 52 y.o. female admitted to [facility] on 12/13/2017 with the following issues: S/p hemipelvectomy for left pelvic chondrosarcoma Impairments: amputation (lower extremity), pain and poor activity tolerance Activity Limitations: grooming, bathing, dressing - lower, toileting, bladder control, transfers, ambulation and stairs Participation Restrictions: unable to return home safely Post-acute care rehabilitation needs: Given pt's considerable impairments (including but not limited to impaired bed mobility, transfers and mobility) status-post jamil-pelvectomy, pt demonstrates the therapy goals in addition to the medical complexity necessary to recommend admission to an acute inpatient rehabilitation unit once medically stable for discharge. Currently, the pt is limited in therapy participation by pain and somnolence which should be expected to improve. Our service will continue to follow her progress. Goals & Barriers Family / Patient Goals: return home with family assistance Mobility Goals: Overall goal is Moderate assistance Activities of Daily Living (ADLs) Goals: Overall goal is Moderate assistance Cognition / Communication Goals: Cognition grossly intact and Speech intact Barriers: Functioning at wheelchair level, Poor strength/endurance and Uncontrolled pain Facilitators: improving medical condition Rehabilitation Prognosis: Good Tolerance for three hours of therapy a day: Fair currently Prior to the inpatient rehabilitation admission complete the following: *Endurance The patient will need to be clearly able to or reasonably expected to be able to endure 3 hours of constructive therapy per day. This will need to be determined prior to considering admission to acute inpatient rehabilitation. *IV Pain The patient will need to be transitioned off all IV pain medications and have good pain control with oral analgesics prior to considering acute inpatient rehabilitation. 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 Pt will also benefit from de-sensitization techniques as instructed by PT and to be performed by self as able. Thank you for this consultation. Please call our consult pager with questions or concerns. Hawk Jennings MD Rehab Consult Pager: [phone] History of Present Illness Hospital Course: Beata Kaiser is a 52 yo F who presented to [facility] on 12/13/17 for scheduled left hemipelvectomy for [...] urethral injury. These were repaired by urology. NGT placed for post-op nutrition and has since been removed. Pt now tolerating clear liquid diet. Pt has had ongoing pain issues since DIRECTOR PHARMACOLOGY removed. Pt has been working with PT/OT for therapy needs. PM&R consulted for rehab recs for discharge planning. Pt excessively somnolent at time of exam due to pain. present bedside. Both endorse having large amount of family support at home to help once discharged from the hospital/rehab. Past Medical History Past Medical History: Diagnosis Date Anxiety Back pain Depression DM (diabetes mellitus) (HCC) Past Surgical History Past Surgical History: Procedure [...] by Pio Malagon DO at Main OR/Periop SECTION HERNIA REPAIR MANDIBLE [...] of Onset Osteoporosis Mother Arthritis-rheumatoid Maternal Grandmother Medications: acetaminophen (TYLENOL) tablet 1,000 mg 1,000 mg Per NG tube Q6H* buPROPion (WELLBUTRIN) tablet 100 mg 100 mg Per NG tube TID busPIRone (BUSPAR) tablet 30 mg 30 mg Per NG tube BID clindamycin (CLEOCIN) 600 mg/D5W 50 mL IVPB 600 mg Intravenous Q8H* gabapentin (NEURONTIN) oral solution 1,200 mg 1,200 mg Per NG tube TID insulin aspart U-100 (NOVOLOG FLEXPEN) injection PEN 0-14 Units 0-14 Units Subcutaneous 5 X Day levothyroxine (SYNTHROID) tablet 175 mcg 175 mcg Per NG tube QDAY before breakfast potassium chloride SR (K-DUR) tablet 40 mEq 40 mEq Oral BID w/meals rivaroxaban (XARELTO) tablet 20 mg 20 mg Oral QDAY w/breakfast PRN Medications: alum/mag hydroxide/simeth Q6H PRN, diazePAM Q6H PRN, diphenhydrAMINE Q6H PRN OR [DISCONTINUED] diphenhydrAMINE Q6H PRN, fentaNYL citrate PF Q1H PRN, hyoscyamine Q4H PRN, naloxone PRN, ondansetron (ZOFRAN) IV Q6H PRN, oxyCODONE Q3H PRN Allergies: Allergies Allergen Reactions Cephalexin SEE COMMENTS Face gets red, feels really hot Prior Level of Function Self-Care/ADLs: Independent Mobility: Independent Home Environment: Home Situation: Lives with Family (12/19/2017 2:00 PM) Patient Owned Equipment: Crutches (12/19/2017 2:00 PM) Type of Home: House (12/20/2017 10:00 AM) Entry Stairs: 1-2 Stairs (12/19/2017 2:00 PM) In-Home Stairs: No Stairs (12/19/2017 2:00 PM) Comments: Patient previously active and independent and working in community ( 11:00 AM) No Data Recorded Support System: Lives with and additional extended family members who are available to provide assistance Current Level of Function PT Gait: Bed Mobility/Transfers Bed Mobility: Rolling: Moderate Assist, x2 People, Assist with Trunk, Assist with R LE Bed Mobility: Supine to Sit: Maximum Assist, x2 People, Head of Bed Elevated, Assist with Trunk, Assist with R LE, Verbal Cues Bed Mobility: Sit to Supine: Maximum Assist, x2 People, Assist with Trunk, Assist with B LE, Verbal Cues End Of Activity Status: In Bed, Nursing Notified, Instructed Patient to Request Assist with Mobility, Instructed Patient to Use Call Light OT ADL's Where Assessed: Edge of Bed Eating Assist: Independent Eating Deficits: Setup (bringing swab to mouth) Grooming Assist: Stand By Assist Grooming Deficits: Setup, Brushing Hair, Wash/Dry Face LE Dressing Assist: Total Assist LE Dressing Deficits: Don/Doff R Sock Toileting Assist: Total Assist Toileting Deficits: Perineal Hygiene (incont of BM during session, melchor) Functional Transfer Assist: Maximum Assist (of 1 and mod assist of 1 to EOB) Comment: Pt had incont of BM prior to oob. Cleaned BM and changed pads with pt needing max assist for bed mobility. Pt sat on EOB with min to SBA for balance. Worked on dynamic reaching activites on EOB. Pt performed grooming tasks with set up. Pt tolerated EOB for approx 15+mins. Curb step utilized on EOB for RLE support. Pt returned to bed and RN notifed pt continued to have incont of BM. Review of Systems A 14 point review of systems was negative except for: as described in brief hospital course Physical Exam BP: 107/67 (12/20 0800) Temp: 37 C (98.6 F) (12/20 0400) Pulse: 110 (12/20 0800) Respirations: 19 PER MINUTE (12/21 0700) SpO2: 97 % (12/20 599) O2 Delivery: Nasal Cannula (12/20 599) SpO2 Pulse: 114 (12/20 0500) Body mass index is 35 kg/m. Gen: Alert & Oriented X 3, No Acute Distress HEENT: NCAT, PERRL, EOMI, MMM Neck: Supple, no elevated JVP Heart: Regular Rate & Rhythm, no m/g/r Lungs: Clear to auscultation bilaterally, no w/r/r Abdomen: Soft, non-tender, non-distended, +BS : +Melchor Skin: no visible rashes/lesions Ext: Left hip in dressings MS: Root Right Left Shoulder Abduction C5 5 5 Elbow Flexion C5 5 5 Elbow Extension C7 5 5 Wrist Extension C6 5 5 Finger Flexion C8 5 5 Finger Abduction T1 5 5 Hip Flexion L2 2* * Knee Extension L3 3* * Dorsiflexion L4 5 * Plantarflexion S1 5 * EHL Extension L5 5 * Limited by pain Neuro: Cranial Nerves Cranial Nerves 2-12 are grossly intact Upper Extremity Tone Normal Lower Extremity Tone Normal Upper Extremity Sensation Intact to light touch bilaterally Lower Extremity Sensation Impaired kimberly-incisonally Clonus Negative Bilaterally Proprioception Intact Bilaterally Cognition/Speech Excessively somnolent due to pain meds thus difficult to assess , speech fluent Intake/Output Summary: Intake/Output Summary (Last 24 hours) at 12/20/17 1112 Last data filed at 12/20/17 0600 Gross per 24 hour Intake 180 ml Output 2870 ml Net -2690 ml Stool Occurrence: 1 (12/19/2017 1:00 PM) Last BM Date: 12/20/17 (12/19/2017 8: 00 PM) No Data Recorded No Data Recorded No Data Recorded No Data Recorded Oral Diet Order: NPO (12/17/2017 2:00 PM) Basic Metabolic Profile Lab Results Component Value Date/Time NA 132 (L) 12/20/2017 03:10 AM K 3.3 (L) 12/20/2017 03:10 AM CA 8.3 (L) 12/20/2017 03:10 AM CL 94 (L) 12/20/2017 03:10 AM CO2 29 12/20/2017 03:10 AM Lab Results Component Value Date/Time BUN 8 12/20/2017 03:10 AM CR 0.69 12/20/2017 03:10 AM GLU 150 (H) 12/20/2017 03:10 AM CBC w/Diff Lab Results Component Value Date/Time WBC 18.8 (H) 12/20/2017 03:10 AM RBC 3.48 (L) 12/20/2017 03:10 AM HGB 10.4 (L) 12/20/2017 03:10 AM HCT 30.9 (L) 12/20/2017 03:10 AM MCV 88.8 12/20/2017 03:10 AM MCH 29.9 12/20/2017 03:10 AM RDW 14.3 12/20/2017 03:10 AM PLTCT 394 12/20/2017 03:10 AM MPV 7.2 12/20/2017 03:10 AM Lab Results Component Value Date/Time NEUT 86 (H) 12/14/2017 06:42 PM ANC 11.40 (H) 12/14/2017 06:42 PM LYMA 6 (L) 12/14/2017 06:42 PM ALC 0.80 (L) 12/14/2017 06:42 PM CALVIN 8 12/14/2017 06:42 PM AMC 1.10 (H) 12/14/2017 06:42 PM EOSA 0 12/14/2017 06:42 PM AEC 0.00 12/14/2017 06:42 PM BASA 0 12/14/2017 06:42 PM ABC 0.00 12/14/2017 06:42 PM Radiology: Reviewed Associated attestation - Arnaldo Delacruz MD - 12/21/2017 10:11 AM CDT Rehabilitation Medicine Attending Physician Attestation: I personally performed banuelos portions of the history and exam. I discussed the case with the resident and agree with the resident's documentation of history, physical assessment and treatment plan unless otherwise noted. Thank you for allowing us to participate in the care of this patient. Arnaldo Delacruz MD 12/21/2017 10:11 AM Attending physician * Ivette Wade APRN-HUMAN RESOURCES RECEPTIONIST - 12/20/2017 6:50 AM CDT Associated Order(s): CONSULT CASHIER SELF SERVICE GASOLINE, HUMAN RESOURCES RECEPTIONIST Formatting of this note may be different from the original. Inpatient Psychiatric Clinical Nurse Specialist- Initial Consult Pt. Name: Beata Kaiser Room: [place] [address] LOS: 7 Reason for consult: Patient s/p hemipelvectomy for chondrosarcoma, found to have tumor in veins and unable to completely remove all tumor in surgery. Assistance with depressive symptoms and coping Interventions that would be helpful: I will see her again tomorrow. Will introduce some calming breathing and self soothing techniques. She is mostly focused on her incisional burning pain and phantom limb pain. It is improving. She continues to use focusing on her goal: to be here as long as possible to be with her family. This is helping her cope. This service is not able to enter orders. Primary team is responsible for entering orders. Summary 52 y.o. female w/ PMH of DM & L pelvic chondrosarcoma s/p L hemipelvectomy . Patient known to me from prior admission. MSE: Patient alert and Ox3. Speech fluid. Thoughts lucid and w/o evidence of psychoses. Memory grossly intact. Patient cooperative and with appropriate eye contact. Mood calm with congruent affect. Insight, judgment, and impulse control sufficient. I appreciate being invited to participate in this patient's care. Call or page if there are any concerns or questions. Ivette Wade [facility] [place] Pager [phone] Office [phone] * Vania Hay MD - 12/14/2017 7:33 PM CDT Associated Order(s): CONSULT TRAUMA/SICU/CRITICAL CARE SURGERY PHYSICIAN Formatting of this note may be different from the original. Critical Care Surgery Progress Note 12/14/2017 Patient: Beata Kaiser Admission date 12/13/2017, LOS: 1 day ASSESSMENT Beata Kaiser is a 52 y.o. 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 Principal Problem: Pelvic mass Active Problems: Pelvic mass in female Metabolic acidosis Acute blood loss anemia Depression Anxiety DM Hypothyroidism PLAN: NEURO: PNCs placed, anesthesia managing. 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 She received EBL 2L, received 3 PRBCs, 5L crystalloid, 1L albumin in the OR and was successfully extubated after the case. She was transferred to ICU for close monitoring and ongoing resuscitation. She does complain of pain and tingling in the left hip. No nausea or emesis. Past Medical History: Diagnosis Date Anxiety Back pain Depression DM (diabetes mellitus) (HCC) Past Surgical History: Procedure Laterality Date SKIN BIOPSY Left 11/30/2017 BIOPSY SKIN LEFT PELVIS performed by Tamiko Luther MD at [facility] OR/Periop SECTION HERNIA REPAIR MANDIBLE SURGERY Family History Problem Relation Age of Onset [...] Social History Narrative No narrative on file OBJECTIVE: Vital Signs: Last Filed Vital Signs: 24 Hour Range BP: 141/79 (12/14 1899) ABP: 122/75 (12/14 1899) Temp: 36.9 C (98.4 F) (12/15 1835) Pulse: 126 (12/14 1914) Respirations: 14 PER MINUTE (12/14 1914) SpO2: 96 % (12/14 1914) O2 Delivery: None (Room Air) (12/15 1835) BP: (103-154)/(62-80) ABP: (122-156)/(75-89) Temp: [36.3 C (97.4 F)-36.9 C (98.4 F)] Pulse: [92-126] Respirations: [12 PER MINUTE-18 PER MINUTE] SpO2: [94 %-100 %] O2 Delivery: None (Room Air) Intensity Pain Scale 0-10 (Pain 1): (not recorded) General: Drowsy, NAD HEENT: Neck supple, no JVD Pulmonary: CTAB, unlabored Cardiovascular: Tachycardic, no M/R/G Abdomen: Soft, ND, NTTP : Melchor in place, clear yellow urine Extremities: Left hemipelvectomy site with dressings intact, no strikethrough Neuro: Grossly intact Skin: Warm and dry Intake/Output Summary (Last 24 hours) at 12/14/17 1934 Last data filed at 12/14/17 1836 Gross per 24 hour Intake 8223 ml Output 3595 ml Net 4628 ml Scheduled Medications: buPROPion XL (WELLBUTRIN XL) tablet 150 mg 150 mg Oral BID busPIRone (BUSPAR) tablet 30 mg 30 mg Oral BID clindamycin (CLEOCIN) 600 mg/D5W 50 mL IVPB 600 mg Intravenous Q8H* [START ON 12/15/2017] enoxaparin (LOVENOX) syringe 100 mg 1 mg/kg Subcutaneous BID famotidine (PEPCID) injection 20 mg 20 mg Intravenous BID gabapentin (NEURONTIN) capsule 300 mg 300 mg Oral TID gentamicin 105 mg in sodium chloride 0.9% (NS) 100 mL IVPB 1 mg/kg Intravenous Q8H levothyroxine (SYNTHROID) tablet 175 mcg 175 mcg Oral QDAY before breakfast lisinopril (PRINIVIL; ZESTRIL) tablet 10 mg 10 mg Oral QDAY milk of magnesia (CONC) oral suspension 10 mL 10 mL Oral QDAY(21) potassium chloride SR (K-DUR) tablet 10 mEq 10 mEq Oral QDAY senna/docusate (SENOKOT-S) tablet 1 tablet 1 tablet Oral BID simvastatin (ZOCOR) tablet 20 mg 20 mg Oral QHS PRN Medications: acetaminophen 650 mg Oral Q4H PRN diphenhydrAMINE 25 mg Oral Q6H PRN Or diphenhydrAMINE 25 mg Intravenous Q6H PRN fentaNYL citrate PF 25-50 mcg Intravenous Q1H PRN ondansetron (ZOFRAN) IV 4 mg Intravenous Q6H PRN promethazine 6.25 mg Intravenous Q10 MIN PRN Current Infusions: Glucose Monitoring: Glucose: (Matt) 263 (12/14/17 165) Recent Laboratory Studies: Recent Labs 12/13/17 1117 12/13/17 1130 12/13/17 2049 12/14/17 0612 12/14/17 1144 12/14/17 1325 12/14/17 1434 12/14/17 1545 12/14/17 1651 12/14/17 1841 HGB 11.7* -- -- 12.7 -- -- -- -- -- -- HCT 33.6* -- -- 36.7 -- -- -- -- -- -- WBC 7.0 -- -- 7.3 -- -- -- -- -- -- PLTCT 293 -- -- 275 -- -- -- -- -- -- NA 140 -- -- 141 140 139 137 138 139 -- K 4.0 -- -- 4.1 4.6 4.5 4.4 4.7 4.9 -- CL 104 -- -- 106 -- -- -- -- -- -- CO2 26 -- -- 27 -- -- -- -- -- -- BUN 13 -- -- 9 -- -- -- -- -- -- CR 0.80 -- -- 0.84 -- -- -- -- -- -- GLU 161* -- -- 141* 241* 236* 244* 278* 263* -- CA 9.5 -- -- 9.4 -- -- -- -- -- -- PTT -- 38.7 95.1* 29.3 -- -- -- -- -- -- PHART -- -- -- -- 7.37 7.35 7.34* 7.30* 7.32* 7.32* PCO2A -- -- -- -- 43 42 43 45 37 33* PO2ART -- -- -- -- 127* 146* 140* 143* 159* 89 HCO3A -- -- -- -- 23.8 22.4 22.4 20.8* 19.2* 17.8* C8UYOEPOF -- -- -- -- 98.8 99.2* 99.1* 99.0 99.4* 97.0 Vania Hay MD Pager: [phone] Associated attestation - Ken Carolina MD - 12/15/2017 2:24 AM CDT Formatting of this note may be different from the original. ATTESTATION I personally observed the resident performing the E/M, discussed case with resident, and concur with resident documentation of history, physical assessment and treatment plan unless otherwise noted. Staff name: Kne Carolina MD Date: 12/15/2017 Acute pain - cont narcotics and monitor; anesthesia eval Metabolic acidosis - IVF resuscitation Hyperglycemia - insulin Hypothyroidism - synthroid acute blood loss anemia - cont to monitor for s/s ongoing blood loss and need for transfusion in this encounter Miscellaneous Notes * Case Mgmt DC Plan - Erika Werner - 01/14/2018 2:26 PM CDT Formatting of this note may be different from the original. Case Management Progress Note NAME:Beata Kaiser : AGE: 52 y.o. ADMISSION DATE: 12/13/2017 DAYS ADMITTED: LOS: 32 days Todays Date: 01/14/2018 Plan Anticipate pt discharging to [facility] at 3:30pm. Micki reviewed EMR and met with team. Pt is medically stable to discharge to [facility]. Interventions ? Support Support: Pt/Family Updates re:POC or DC Plan Micki updated pt regarding discharge planning. ? Info or Referral Information or Referral to Community Resources: Diagnosis-Related Community Resources ? Discharge Planning Micki spoke with Julia in admissions at [facility]. Insurance authorization has been received. Pt will be transported in a stretcher van at 3:30pm. Micki updated team on discharge planning. ? Medication Needs ? Financial ? Legal ? Other Disposition ? Expected Discharge Date Expected Discharge Date: 01/14/18 Expected Discharge Time: 1530 ? Transportation Does the patient need discharge transport arranged?: No Transportation Name, Phone and Availability #1: Marvin Kaiser. Transportation Name, Phone and Availability #2: [phone]. Does the patient use Medicaid Transportation?: No ? Next Level of Care (Acute Psych discharges only) ? Discharge Disposition Durable Medical Equipment No service has been selected for the patient. Destination - Selection Complete Service Request Status Selected Specialties Address Phone Number Fax Number [facility] Selected Inpatient Rehabilitation Facility [address] [place] [address] [phone] Home Care No service has been selected for the patient. Dialysis/Infusion No service has been selected for the patient. Erika Werner LMSW *[phone] * Case Mgmt DC Plan - Julia Young RN - 01/14/2018 9:06 AM CDT Per chart review patients labs are stable. Appears patients temperature is slightly elevated with a last temp of 99.9F as of 0539 this morning. Patient has been tachycardiac the last 24 hours ranging from 102-118bpm. Per ID note Ertapenem will be stopped on 01-23-2018 and Micafungin will be stopped on 2017. Patient will have wound vac dressing change today per discussion with MICKI yesterday. Will discuss chart review with MICKI. 0912: Text paged Erika (MICKI) re: chart review. MICKI aware that insurance authorization was submitted yesterday. 0943: Per Erika EAGLE) no concerns with primary team re: increase temp and tachycardia. Informed MICKI that discussed case with medical secretary as well and no concerns at this time. Per MICKI patient is getting wound vac dressing change at 1000 this morning. MICKI aware that still waiting on insurance authorization. 1359: Per Gissell (UR/CM for [facility]) patient has been approved for inpatient rehab. 1422: Notified Erika EAGLE) that rehab able to admit today. Transportation will be scheduled for 1530 via stretcher van with [facility]. MICKI to notify patient's primary RN of discharge time, rehab bed assignment of [phone] and unit phone# for report (). Please leave in any functioning IV access for transition to 's IP rehab unit. URMILA Catalan RN Inpatient Rehab Admission Nurse ([phone]) * Patient Education - Amanda Juares - 01/13/2018 6:36 PM CDT Beata Kaiser accepted education and was engaged. she verbalized understanding. The following was discussed: Plan of care, pain management. Wound care. Discharge planning. Follow up should occur as needed. Continue to address: Plans for discharge tomorrow Amanda Juares * Case Mgmt DC Plan - Erika Werner - 01/11/2018 3:22 PM CDT Formatting of this note may be different from the original. Case Management Progress Note NAME:Beata Kaiser : AGE: 52 y.o. ADMISSION DATE: 12/13/2017 DAYS ADMITTED: LOS: 29 days Todays Date: 01/11/2018 Plan Anticipate pt discharging to [facility] when medically stable. Micki reviewed EMR and met with team. Pt to have wound vac changed on W and F. Pt will need to be off all IV pain meds, and continuous fluids prior to admission at [facility]. Interventions ? Support Support: Pt/Family Updates re:POC or DC Plan Micki and HARVINDER met with pt at bedside and updated her on discharge planning and discussed DME. ? Info or Referral Information or Referral to Community Resources: Diagnosis-Related Community Resources ? Discharge Planning Micki spoke with Julia in admissions at [facility]- pt will need to participate in PT/OT daily. Looking at admission post wound vac change on Wednesday. ? Medication Needs ? Financial ? Legal ? Other Disposition ? Expected Discharge Date Expected Discharge Date: 01/14/18 ? Transportation Does the patient need discharge transport arranged?: No Transportation Name, Phone and Availability #1: Marvin Kaiser. Transportation Name, Phone and Availability #2: [phone]. Does the patient use Medicaid Transportation?: No ? Next Level of Care (Acute Psych discharges only) ? Discharge Disposition Durable Medical Equipment No service has been selected for the patient. Destination No service has been selected for the patient. Home Care No service has been selected for the patient. Dialysis/Infusion No service has been selected for the patient. Erika Werner [facility] *[phone] * Operative Report (DICTATED ONLY) - Tamiko Luther MD - 01/11/2018 11:24 AM CDT THE [address] [address] PATIENT NAME: BEATA KAISER MR#/PT#: [id number] Page 2 OPERATIVE REPORT DATE OF OPERATION: 01/10/2018 SURGEON: Tamiko Luther MD PARTS IDENTIFICATION TECHNICIAN(S): Adrienne Zarate MD PREOPERATIVE DIAGNOSIS: Draining wound, left pelvis, status post hemipelvectomy. POSTOPERATIVE DIAGNOSIS: Same. OPERATIVE PROCEDURE: Incision and drainage of left hemipelvis and placement of wound VAC. ANESTHESIA: General. INDICATIONS FOR OPERATIVE PROCEDURE: The patient previously had a hemipelvectomy performed for an intermediate to high-grade chondrosarcoma. She has had issues with wound drainage since surgery. She has also had significant issues with micturition. Her micturition was being assessed. However, the wound drainage was keeping the wound from healing. Therefore, the plan was to take her to the operating room to drain the wound and place a wound VAC to see if this would help relieve the tension on the incision. A preoperative CT scan demonstrated no evidence of a fluid collection. DESCRIPTION AND FINDINGS OF OPERATIVE PROCEDURE: The patient was brought to the operating room and placed in supine position. General anesthesia was then induced. The urology team assessed the competency of the bladder via cystogram and this will be dictated separately. Once it was confirmed there was no bladder leakage, the Melchor was changed. She was then placed in right lateral decubitus position with appropriate padding on a beanbag. The dressing was removed from the left hip and the left hemipelvis was prepped and draped in normal sterile fashion. A portion of the the superior posterior aspect of the wound was then opened. The ceci were removed. This site was selected as we wanted to have the drainage of the drain from the Pulsavac, not to exit strictly posteriorly, as she was lying on this. It was thought that placing a wound VAC in this area will still allow drainage. Upon removing the ceci, there was no scar noted in the dermis. There was essentially no healing that had taken place. Large fluid collection was evacuated. There was no purulent material noted. The skin edge was then freshened and all of the underlying and superficial soft tissues bled readily and appeared to be in good condition. It was felt that this was strictly an atrophic wound. The wound was then irrigated with 2 L of nonpulsatile antibiotic solution. A wound VAC was applied and there was an easily obtained suction. She was returned to supine position, extubated without difficulty. ESTIMATED BLOOD LOSS: Minimal. SPECIMENS REMOVED: none MD SARAH Guy / URIEL /[id number] cc: - Tamiko Luther MD * Anesthesia Post Op Day 1 - Fareed Adame SRNA - 01/11/2018 9:56 AM CDT Formatting of this note may be different from the original. Anesthesia Follow-Up Evaluation: Post-Procedure Day One Name: Beata Kaiser : 1965 Age: 52 y.o. Sex: female Procedure Date: 01/10/2018 Procedure: Procedure(s): WOUND EXPLORATION LEFT HEMIPELVECTOMY, IRRIGATION AND DEBRIDEMENT, WOUND VAC PLACEMENT CYSTOGRAM, MELCHOR CATHETER EXCHANGE Physical Assessment Height: 162.6 cm (64") Weight: 104.1 kg (229 lb 8 oz) Vital Signs (Last Filed in 24 hours) BP: 118/66 (01/11 955) Temp: 36.6 C (97.9 F) (01/11 955) Pulse: 97 (01/11 955) Respirations: 18 PER MINUTE (01/11 955) SpO2: 98 % (01/11 955) O2 Delivery: None (Room Air) (01/11 955) SpO2 Pulse: 91 (01/10 1215) Patient History Allergies Allergies Allergen Reactions Cephalexin SEE COMMENTS Face gets red, feels really hot, has tolerated penicillin Medications Scheduled Meds: acetaminophen (TYLENOL) tablet 1,000 mg 1,000 mg Oral Q8H* buPROPion (WELLBUTRIN) tablet 100 mg 100 mg Oral TID busPIRone (BUSPAR) tablet 15 mg 15 mg Oral BID ertapenem (INVANZ) IVP 1 g 1 g Intravenous Q24H* gabapentin (NEURONTIN) capsule 400 mg 400 mg Oral TID (05-01-17) gabapentin (NEURONTIN) capsule 800 mg 800 mg Oral QHS insulin aspart U-100 (NOVOLOG FLEXPEN) injection PEN 0-14 Units 0-14 Units Subcutaneous 5 X Day insulin aspart U-100 (NOVOLOG FLEXPEN) injection PEN 14 Units 14 Units Subcutaneous TID after meals insulin glargine (LANTUS SOLOSTAR, BASAGLAR) injection PEN 22 Units 22 Units Subcutaneous QHS insulin NPH (HUMULIN N KwikPen) injection PEN 66 Units 66 Units Subcutaneous QDAY(17) lactobacillus rhamnosus GG (CULTURELLE) 15 billion cell capsule 1 capsule 1 capsule Oral BID w/meals levothyroxine (SYNTHROID) tablet 175 mcg 175 mcg Oral QDAY before breakfast lidocaine (LIDODERM) 5 % topical patch 2 patch 2 patch Topical QDAY [START ON 01/12/2018] lidocaine 2% (20 mg/mL) injection 50 mL 50 mL SEE ADMIN INSTRUCTIONS Once per day on Wed micafungin (MYCAMINE) 100 mg in sodium chloride 0.9% (NS) 100 mL IVPB (MB+) 100 mg Intravenous Q24H* neomycin tablet 500 mg 500 mg Oral Q6H* oxyCODONE SR (OXYCONTIN) tablet 20 mg 20 mg Oral QHS pantoprazole DR (PROTONIX) tablet 40 mg 40 mg Oral QDAY(21) rivaroxaban (XARELTO) tablet 20 mg 20 mg Oral QDAY w/breakfast vitamin A & D topical ointment Topical BID Continuous Infusions: lactated ringers infusion 20 mL/hr at 01/10/18 0828 PRN and Respiratory Meds:alum/mag hydroxide/simeth Q6H PRN, calcium carbonate Q4H PRN, diazePAM Q6H PRN, diphenhydrAMINE Q6H PRN OR [DISCONTINUED] diphenhydrAMINE Q6H PRN, naloxone PRN, ondansetron (ZOFRAN) IV Q6H PRN, oxyCODONE Q3H PRN, pancrelipase 20,000 Units/ sodium bicarbonate 650 mg(#) PRN ( Sharepoint Application 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 Rx), simethicone Q6H PRN Diagnostic Tests Hematology: Lab Results Component Value Date HGB 7.8 01/11/2018 HCT 22.5 01/11/2018 PLTCT 660 01/11/2018 WBC 10.3 01/11/2018 NEUT 64 01/10/2018 ANC 5.80 01/10/2018 LYMPH 12 12/29/2017 ALC 1.40 01/10/2018 CALVIN 12 01/10/2018 AMC 1.10 01/10/2018 EOSA 9 01/10/2018 ABC 0.00 01/10/2018 MCV 85.8 01/11/2018 MCH 29.6 01/11/2018 MCHC 34.5 01/11/2018 MPV 6.9 01/11/2018 RDW 15.8 01/11/2018 General Chemistry: Lab Results Component Value Date NA 136 01/11/2018 K 4.0 01/11/2018 CL 101 01/11/2018 CO2 29 01/11/2018 GAP 6 01/11/2018 BUN 18 01/11/2018 CR 0.61 01/11/2018 GLU 269 01/11/2018 CA 8.2 01/11/2018 ALBUMIN 2.2 01/07/2018 LACTIC 1.9 12/21/2017 OBSCA 1.07 12/19/2017 MG 1.8 01/03/2018 TOTBILI 0.2 01/07/2018 PO4 2.2 01/03/2018 Coagulation: Lab Results Component Value Date PTT 23.7 12/14/2017 INR 1.0 11/30/2017 Follow-Up Assessment Patient location during evaluation: floor Anesthetic Complications: Anesthetic complications: The patient did not experience any anesthestic complications. Pain: Score: 8 (RN at bedside with oral pain meds) Management:adequate Level of Consciousness: awake and alert Hydration:acceptable Airway Patency: patent Respiratory Status: acceptable and nonlabored ventilation Cardiovascular Status:acceptable and stable Regional/Neuroaxial: * Procedures (Immed Post or Bedside) - Adrienne Zarate MD - 01/10/2018 10:47 AM CDT Brief Operative Note Name: Beata Kaiser is a 52 y.o. female : 1965 MRN# : [id number] DATE OF OPERATION: 01/10/2018 Date: 01/10/2018 Preoperative Dx: Chondrosarcoma (HCC) [C41.9] Post-op Diagnosis * Chondrosarcoma (HCC) [C41.9] Procedure(s) (LRB): WOUND EXPLORATION LEFT HEMIPELVECTOMY, IRRIGATION AND DEBRIDEMENT, WOUND VAC PLACEMENT (Left) CYSTOGRAM, MELCHOR CATHETER EXCHANGE Anesthesia Type: Defer to Anesthesia Surgeon(s) and Role: * Adrienne Zarate MD - Resident - Assisting * Spencer Purcell MD - Co-Surgeon * Davey Dove MD - Resident - Assisting * Tamiko Luther MD - Primary Findings: healthy appearing wound bed, no ely purulence, no evidence of infection, posterior wound with no dermal healing. See urology note for findings of cystogram and catheter exchange. Estimated Blood Loss: No blood loss documented. Specimen(s) Removed/Disposition: * No specimens in log * Complications: None Implants: None Drains: Other Wound Vac Disposition: PACU - stable Adrienne Zarate MD Pager [phone] Associated attestation - Tamiko Luther MD - 02/07/2018 1:54 PM CDT I performed the procedure with the resident. * Operative Report (DICTATED ONLY) - Spencer Purcell MD - 01/10/2018 10:06 AM CDT Formatting of this note may be different from the original. THE [address] [address] PATIENT NAME: BEATA KAISER MR#/PT#: [id number] Page 2 OPERATIVE REPORT DATE OF OPERATION: 01/10/2018 SURGEON: Spencer Purcell MD PARTS IDENTIFICATION TECHNICIAN(S): Davey Dove MD PREOPERATIVE DIAGNOSIS: Chondrosarcoma. POSTOPERATIVE DIAGNOSIS: Same. OPERATIVE PROCEDURE: Cystogram, Melchor catheter exchange. ANESTHESIA: General. INDICATIONS FOR OPERATIVE PROCEDURE: The patient is a 52-year-old female with a history of chondrosarcoma status post left hemipelvectomy in November 2017, with an intraoperative course complicated by bladder injury status post repair. She was taken to the operating room today for exploration due to persistent leaking of fluid from her wound. Urology was asked to perform a cystogram intraoperatively to rule out persistent bladder leak. DESCRIPTION AND FINDINGS OF OPERATIVE PROCEDURE: Findings: No extravasation of contrast consistent with normal cystogram. After informed consent was obtained, the correct patient was identified in the preoperative holding area. She was taken back to the operative suite and placed on the table in supine position. A time-out was performed to confirm the correct patient and planned procedure. She received 2 g of IV Ancef prior to smooth induction of general endotracheal anesthesia. She was then moved in supine position on the table so that C-arm could be placed underneath her. We then instilled a total of 300 mL of Isovue contrast into the patient's bladder through her Melchor catheter using fluoroscopy to obtain precontrast filling maximally full and drainage imaging. The bladder appeared intact without any evidence of contrast leak. We therefore cleared this a normal cystogram. The Melchor catheter was then removed and exchanged under sterile technique for a 22- Welsh catheter with 10 mL sterile water in the balloon. This was irrigated to confirm placement and hooked to a drainage bag. The patient was then left under anesthesia for orthopedic surgery portion of the case. ESTIMATED BLOOD LOSS: Minimal. SPECIMENS REMOVED: None. COMPLICATIONS: None, IMPLANTS: None. DRAINS: Melchor catheter, 0 mL. DISPOSITION: PACU, stable. ATTESTATION I performed this procedure with a resident. Staff name: Spencer Purcell MD Date: 01/10/2018 Spencer Purcell MD Dictated by: Davey Dove MD / URIEL /[id number] cc: - Spencer Purcell MD * Care Plan - Gustabo Kuo RN - 01/10/2018 1:23 AM CDT Problem: Falls, High Risk of Goal: Absence of falls-Adult Patient Outcome: Goal Ongoing Fall bundle applied. Bed alarm on. Problem: Discharge Planning Goal: Participation in plan of care Outcome: Goal Ongoing Pt is actively involved in plan of care. Goal: Knowledge regarding plan of care Outcome: Goal Ongoing Update pt with plan of care. Goal: Prepared for discharge Outcome: Goal Ongoing Discharge planning ongoing. Problem: Anxiety Goal: Alleviation of anxiety Outcome: Goal Ongoing Provide positive coping. Problem: Pain Goal: Management of pain Outcome: Goal Ongoing Assess pain level at a regular base. Problem: Tissue Perfusion, Altered Goal: Adequate tissue perfusion Outcome: Goal Ongoing Assess peripheral circulation. Problem: Skin Integrity Goal: Skin integrity intact Outcome: Goal Ongoing Reposition every 2 hours. Change bedding and linen as needed. Problem: Mobility/Activity Intolerance Goal: Maximize functional ADL's and mobility outcomes Outcome: Goal Ongoing PT/OT consulted. Problem: Nutrition Deficit Goal: Adequate nutritional intake Outcome: Goal Ongoing Nocturnal feeding and protein packs given per order. Problem: Infection, Risk of Goal: Absence of infection Outcome: Goal Ongoing Antibiotic given per order. Problem: Infection, Risk of, Central Venous Catheter-Associated Bloodstream Infection Goal: Absence of CVC Associated Bloodstream infection Outcome: Goal Ongoing Dressing is not due to change. Flush every four hours. Problem: Infection, Risk of, Urinary Catheter-Associated Urinary Tract Infection Goal: Absence of urinary catheter-associated infection Outcome: Goal Ongoing Melchor care given each shift. * Care Plan - Denise Ortega - 01/09/2018 7:02 PM CDT Problem: Infection, Risk of, Central Venous Catheter-Associated Bloodstream Infection Goal: Absence of CVC Associated Bloodstream infection Outcome: Goal Ongoing The patient understands how the importance of keeping the PICC dressing changed every 7 days is crucial in preventing CVC associated bloodstream infections. The patient is actively involved in her PICC care and advocates appropriately. * Patient Education - Denise Ortega - 01/09/2018 6:58 PM CDT The patient was educated regarding the importance of utilizing the IS and staying hydrated throughout the day (drinking water, ice chips) in the promotion of proper healing. The patient verbalized understanding and asked questions appropriately. * Care Plan - Denise Ortega - 01/08/2018 3:33 PM CDT Problem: Infection, Risk of Goal: Absence of infection Outcome: Goal Ongoing The patient has been educated on the importance of receiving her scheduled antibiotic on time. The patient has also been educated on the importance of nutrition in her healing process and actively engages in meal times. The patient is actively hygienic and often does not refuse bed baths. * Care Plan - Denise Ortega - 01/08/2018 3:31 PM CDT Problem: Self-Care Deficit Goal: Maximize ADL functioning Outcome: Goal Ongoing The patient has been educated regarding the importance of continuing ADL mobility and is actively encouraged to participate in OT daily. The patient practices self-advocacy and OT schedules are agreed upon by the patient and discussed with the providers. * Care Plan - Denise Ortega - 01/08/2018 3:29 PM CDT Problem: Skin Integrity Goal: Healing of skin (Wound & Incision) Outcome: Goal Ongoing The patient has been active in the care and dressing changes of her abdominal/ surgical wounds. The patient and nurse have discussed what kind of dressings work and how effective each of them are. * Patient Education - Denise Ortega - 01/08/2018 3:25 PM CDT The patient has been educated regarding the importance of using the IS in order to encourage ventilation and perhaps improve upon her thermoregulation. Patient verbalized understanding and agreed that today we would pay special attention to utilizing IS 10 times/hour. * Case Mgmt DC Plan - Julia Young RN - 01/07/2018 3:44 PM CDT Notified by Erika Foramn (MICKI) that patient will potentially be ready for d/c on Wednesday. Per MICKI plan is for patient to get a wound vac on Wednesday. Patient continues to have the [employer] (nocturnal feeds only) and GI will be consulted for further nutrition management. URMILA Catalan RN Inpatient Rehab Admission Nurse ([phone]) * Patient Education - ShannonDenise perea - 01/07/2018 11:52 AM CDT The patient has been educated regarding the simple mechanism of a wound vac that she may be a candidate for. The patient verbalized understanding that it would not interfere with PT, how/where the drainage is collected, and that the procedure would be performed in the OR. * Patient Education - Annette Ling RN - 01/06/2018 7:55 PM CDT Beata Kaiser accepted interactive education and was interactive she verbalized understanding The following was discussed: Wound care plan of care Follow up should occur yes Continue to address: discharge planning Annette Ling RN * Case Mgmt DC Plan - Erika Werner - 01/05/2018 3:04 PM CDT Formatting of this note may be different from the original. Case Management Progress Note NAME:Beata Kaiser : AGE: 52 y.o. ADMISSION DATE: 12/13/2017 DAYS ADMITTED: LOS: 23 days Todays Date: 01/05/2018 Plan Anticipate pt discharging to [facility] when medically stable. Sw reviewed EMR and met with team. Pt may receive wound vac- continued concerns with draining. Interventions ? Support Support: Pt/Family Updates re:POC or DC Plan ? Info or Referral Information or Referral to Community Resources: Diagnosis-Related Community Resources Sw met with pt and pt's sister Anita at bedside and provided packet on information regarding applying for SSD. ? Discharge Planning ? Medication Needs ? Financial ? Legal ? Other Disposition ? Expected Discharge Date Expected Discharge Date: 01/07/18 ? Transportation Does the patient need discharge transport arranged?: No Transportation Name, Phone and Availability #1: Marvin Kaiser. Transportation Name, Phone and Availability #2: [phone]. Does the patient use Medicaid Transportation?: No ? Next Level of Care (Acute Psych discharges only) ? Discharge Disposition Durable Medical Equipment No service has been selected for the patient. Destination No service has been selected for the patient. Home Care No service has been selected for the patient. Dialysis/Infusion No service has been selected for the patient. Erikajose Werner, [facility] [place] *[phone] * Patient Education - Jami Dejesus RN - 01/05/2018 11:52 AM CDT Beata Kaiser accepted education and was receptive. she verbalized understanding. The following was discussed: Diet and oral pain regimen. Follow up should occur as needed. Jami Dejesus RN * Case Mgmt DC Plan - Julia Young RN - 01/04/2018 4:38 PM CDT [id number]: Provided patient with verbal and written education re: 's IP rehab facility. Information included: members of the interdisciplinary team, therapy scheduling, team conference, RN to patient ration, daily physician rounds, fall prevention, appropriate clothing to have, family training, visiting hours and parking for visitors. The following information was obtained from the patient. Preferred Name to be Addressed by: Beata PLOF: Indepedent with mobility and activities of daily living. Home Accessibility: Single story, 2 steps to get into living room, tub/shower unit, fixed shower head. DME: none Discharge Support: Marvin () works radio time salesperson on the weekends Wednesday, Wednesday, Wednesday 6am-6pm, has an 18 y/o and lives with patient and is (due in February, both can not provide physical assist), 30 y/o daughter ( works radio time salesperson) and boyfriend also lives with patient and can not provide physical assist. 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 Enjoys fishing, doing yard work and being outdoors Goal(s): 1. Short term goals: "be as independent as possible" 2. senior living goals: "can't think of anything" Other: 1. Patient stated that she has only emptied her colostomy one time since surgery and is concerned. 2. Patient stated she has a lot of drainage from her back and is causing her concern. 3. Patient also stated that she stood for the first time today since surgery and it was "very scary" and feels she isn't ready for rehab yet. Patient was very tearful during conversation. Provided encouragement to patient that per rehab consult team she would benefit from a rehab stay and believe she can tolerate therapy sessions. Patient denied any further questions. Patient is agreeable to an admission at 's IP rehab facility. URMILA Catalan RN Inpatient Rehab Admission Nurse ([phone]) * Case Mgmt DC Plan - Julia Young RN - 01/03/2018 8:49 AM CDT Per chart review patient will need updated PT/OT notes. Per review patient is on a diabetic diet as well as supplemental feeds through [employer], would like to see % eaten of breakfast and lunch today. Will need clarification on duration of IV antibiotics. Patients labs and vital signs are stable. Will request that rehab consult team do a f/u on patient today as from last note on 12-27-2017 stated "awaiting further surgical intervention however, it is too early to make definitive recommendations." Will f/u with SW. 0904: Updated Erika Forman () re: chart review. Per patient will not be ready for d/c until Wednesday. URMILA Catalan RN Inpatient Rehab Admission Nurse ([phone]) * Patient Education - Amanda Juares - 01/02/2018 5:36 PM CDT Beata Kaiser accepted education and was engaged. she verbalized understanding. The following was discussed: Plan of care. Dressing changes. Medications. Diet changes. TPN Follow up should occur as needed. Continue to address: new orders. Changes to plan of care Amanda Juares * Anesthesia Post Op Day 1 - Marian Moya SRNA - 12/31/2017 10:01 AM CDT Formatting of this note may be different from the original. Anesthesia Follow-Up Evaluation: Post-Procedure Day One Name: Beata Kaiser : 1965 Age: 52 y.o. Sex: female Procedure Date: 12/30/2017 Procedure: Procedure(s) with comments: COLOSTOMY DIVERTING LOOP, EXPLORATORY LAPAROTOMY LYSIS OF ADHESIONS, - CASE LENGTH 2 HOURS, CLIPPING AND HIBICLENS PREP TO BE DONE IN SDS/PRE-POST Physical Assessment Height: 162.6 cm (64") Weight: 98.5 kg (217 lb 2.5 oz) Vital Signs (Last Filed in 24 hours) BP: 124/63 (12/31 428) Temp: 37 C (98.6 F) (12/31 428) Pulse: 106 (12/31 428) Respirations: 18 PER MINUTE (12/31 428) SpO2: 93 % (12/31 428) O2 Delivery: None (Room Air) (12/31 428) SpO2 Pulse: 100 (12/30 1415) Patient History Allergies Allergies Allergen Reactions Cephalexin SEE COMMENTS Face gets red, feels really hot, has tolerated penicillin Medications Scheduled Meds: acetaminophen (TYLENOL) tablet 1,000 mg 1,000 mg Oral Q6H* buPROPion (WELLBUTRIN) tablet 100 mg 100 mg Oral TID busPIRone (BUSPAR) tablet 15 mg 15 mg Oral BID gabapentin (NEURONTIN) capsule 600 mg 600 mg [...] mcg 175 mcg Oral QDAY before breakfast micafungin (MYCAMINE) 100 mg in sodium chloride 0.9% (NS) 100 mL IVPB (MB+) 100 mg Intravenous Q24H* neomycin tablet 500 mg 500 mg Oral Q6H* pantoprazole DR (PROTONIX) tablet 40 mg 40 mg Oral QDAY(21) piperacillin/tazobactam (ZOSYN) 4.5 g/100 mL iso-osmotic IVPB 4.5 g Intravenous Q6H* rivaroxaban (XARELTO) tablet 20 mg 20 mg Oral QDAY w/breakfast vitamin A & D topical ointment Topical BID Continuous Infusions: Adult Parenteral Nutrition (TPN) Adult Parenteral Nutrition (TPN) 65 mL/hr at 12/30/172027 fentaNYL (SUBLIMAZE) DIRECTOR PHARMACOLOGY 550 mcg/ NS 55 mL infusion syr (std conc)(premade ) lactated ringers infusion Stopped (12/30/17 1440) PRN and Respiratory Meds:alum/mag hydroxide/simeth Q6H PRN, calcium carbonate Q4H PRN, diazePAM Q6H PRN, diphenhydrAMINE Q6H PRN OR [DISCONTINUED] diphenhydrAMINE Q6H PRN, fentaNYL citrate PF Q1H PRN, naloxone PRN, ondansetron (ZOFRAN) IV Q6H PRN, oxyCODONE Q3H PRN, pancrelipase 20,000 Units/ sodium bicarbonate 650 mg(#) PRN (Sharepoint Application 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 Rx) Diagnostic Tests Hematology: Lab Results Component Value Date HGB 8.3 12/30/2017 HCT 24.5 12/30/2017 PLTCT 539 12/30/2017 WBC 17.0 12/30/2017 NEUT 78 12/30/2017 ANC 13.20 12/30/2017 LYMPH 12 12/29/2017 ALC 2.00 12/30/2017 CALVIN 7 12/30/2017 AMC 1.30 12/30/2017 EOSA 3 12/30/2017 ABC 0.10 12/30/2017 MCV 86.8 12/30/2017 MCH 29.3 12/30/2017 MCHC 33.8 12/30/2017 MPV 6.5 12/30/2017 RDW 15.2 12/30/2017 General Chemistry: Lab Results Component Value Date NA 134 12/31/2017 K 4.3 12/31/2017 CL 100 12/31/2017 CO2 25 12/31/2017 GAP 9 12/31/2017 BUN 15 12/31/2017 CR 0.86 12/31/2017 GLU 255 12/31/2017 CA 8.4 12/31/2017 ALBUMIN 2.2 12/30/2017 LACTIC 1.9 12/21/2017 OBSCA 1.07 12/19/2017 MG 2.0 12/31/2017 TOTBILI 0.3 12/30/2017 PO4 4.1 12/31/2017 Coagulation: Lab Results Component Value Date PTT 23.7 12/14/2017 INR 1.0 11/30/2017 Follow-Up Assessment Patient location during evaluation: floor Anesthetic Complications: Anesthetic complications: The patient did not experience any anesthestic complications. Pain: Management:adequate Level of Consciousness: awake and alert Hydration:acceptable Airway Patency: patent Respiratory Status: acceptable and room air Cardiovascular Status:acceptable Regional/Neuroaxial: * Operative Report (DICTATED ONLY) - Aimee Mccollum DO - 12/30/2017 12:40 PM CDT Formatting of this note may be different from the original. THE [address] [id number] PATIENT NAME: BEATA KAISER MR#/PT#: [id number] Page 3 OPERATIVE REPORT DATE OF OPERATION: 12/30/2017 SURGEON: Aieme Mccollum DO PARTS IDENTIFICATION TECHNICIAN(S): DO Montez Coyne DO PREOPERATIVE DIAGNOSIS: Nonhealing wounds. POSTOPERATIVE DIAGNOSIS: Same. OPERATIVE PROCEDURE: 1. Exploratory laparotomy. 2. Lysis of adhesions. 3. Diverting end colostomy placement. 4. 22 modifier for post operative state and adhesions from recent surgery. ANESTHESIA: General with endotracheal tube intubation. INDICATIONS FOR OPERATIVE PROCEDURE: Ms. 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 Given these findings, recommendations for diverting ostomy recommended. Nonoperative and operative interventions were discussed with the patient. The patient elected to proceed with operative intervention. Risks, benefits, and potential complications were discussed such as bleeding, infection, , damage to surrounding structures, any other indicated procedures, which she agreed, wished to proceed with the operative intervention. Consent was reviewed with and signed by the patient at that time. DESCRIPTION AND FINDINGS OF OPERATIVE PROCEDURE: Findings: 1. Dense adhesions noted in the pelvis, raw surface area oozing from previous radiation hemipelvectomy. 2. Left ureter intact, ostomy patent and viable at the end of the procedure. The patient was seen in the preoperative holding area from which an updated history and physical exam was obtained at that time. The patient was then taken back to the operative theater, placed in supine position. General anesthesia was induced. The patient's abdomen was prepped and draped in the usual sterile fashion. A time-out procedure was performed to accurately identify the patient, operative site, and operative procedure to be performed. A periumbilical midline laparotomy incision was then made with a 10-blade. Bovie electrocautery was then used to bluntly and sharply dissect down through the subcutaneous tissue until we were able to gain entrance into the fascia. Fascia was then elevated with Arline clamps times 2 and then we were able to sharply incise into the abdominal wall fascia. There were dense adhesions that were noted in the lower aspect of the patient's abdomen which were then sharply and bluntly dissected down with cautery. Once we had full mobilization, Bookwalter device was then brought to the field for optimal visualization. We then began to mobilize the white line of Toldt along the descending colon all the way down just distal to the sacral promontory. We identified the left ureter, which was patent and intact the entire time. The patient is also known to have raw surface area of oozing from her previous history of radiation and recent pelvic surgery. Once we felt we had good mobilization of the descending colon, we then transected just at the level of the sacral promontory with the colon with the CLEM 75 blue staple load. Mesenteric attachments were then taken down with an EnSeal device. Once we had good mobilization of the colon and brought up to the level of the skin, we then selected our placement for the ostomy which was in the left upper quadrant that was previously marked. Arline clamps were then used to elevate this area of the skin. This was then divided all the way down through the skin to the level of the fascia. Muscle sparing technique was then used and we then sharply dissected down through the anterior and posterior wall fascia with 2 fingerbreadths of width noted. Yaritza clamp was then used to grasp the colon, which was lying appropriate to the level of the skin. Fibrillar was then placed in the pelvis given the persistent oozing. The patient's fascia was then closed with number 1 looped PDS suture times 2 and skin ceci then used to reapproximate the skin. We then turned our attention to kristie budding of the end colostomy. The previous staple line was then transected and then the ostomy was then brooked with 3-0 Vicryl and the ostomy was then tested to be patent below the level of the fascia. Ostomy appliance was then applied over top. Betadine soaked Telfa strips were then applied in between the patient's ceci and 4 x 4 and Tegaderm applied over top. The patient tolerated the procedure well. She was extubated in hemodynamically stable condition and taken to the postanesthesia care unit in hemodynamically stable condition. All sponge, instrument, and needle counts were correct at the end of the case. Dr. Mccollum was present for the banuelos portions of the procedure. ESTIMATED BLOOD LOSS: 100 mL. SPECIMENS REMOVED: Colonic staple line. IMPLANTS: None. DRAINS: None. DISPOSITION: PACU stable. ATTESTATION I performed this procedure with a resident. and I was present for the entire procedure. Staff name: Aimee Mccollum DO Date: 12/31/2017 Aimee Mccollum DO Dictated by: Herberth Dean DO / MEDPing /[id number] cc: - Aimee Mccollum DO * Procedures (Immed Post or Bedside) - Montez Agudelo DO - 12/30/2017 11:42 AM CDT Formatting of this note may be different from the original. Brief Operative Note Name: Beata Kaiser is a 52 y.o. female : 1965 MRN# : [id number] DATE OF OPERATION: 12/30/2017 Date: 12/30/2017 Preoperative Dx: Pelvic mass in female [R19.00] Post-op Diagnosis * Pelvic mass in female [R19.00] Procedure(s): COLOSTOMY DIVERTING LOOP, EXPLORATORY LAPAROTOMY LYSIS OF ADHESIONS, Anesthesia Type: Defer to Anesthesia Surgeon(s) and Role: * Montez Agudelo DO - Resident - Assisting * Herberth Dean DO - Resident - Assisting * Aimee Mccollum DO - Primary Findings: Ureter intact. Loop of bowel brought up with healthy mucosa after ostomy formation. Estimated Blood Loss: No blood loss documented. Specimen(s) Removed/Disposition: ID Type Source Tests Collected by Time Destination 1 : STAPLE LINE Tissue Abdomen SURGICAL PATHOLOGY ChunAimeeDO 12/30/2017 1104 Complications: None Implants: None Drains: None Disposition: PACU - stable Montez Agudelo DO Pager [phone] * Case Mgmt DC Plan - Erika Werner - 12/29/2017 3:58 PM CDT Formatting of this note may be different from the original. Case Management Progress Note NAME:Beata Kaiser : AGE: 52 y.o. ADMISSION DATE: 12/13/2017 DAYS ADMITTED: LOS: 16 days Todays Date: 12/29/2017 Plan Pt to OR for colostomy tomorrow. Anticipate pt discharging to [facility] when medically stable. Sw reviewed EMR and met with team. Interventions ? Support Support: Pt/Family Updates re:POC or DC Plan Sw met with pt, pt's , and pt's daughter Mica. Pt is now interested in [facility] at discharge. ? Info or Referral ? Discharge Planning Sw called Julia in admissions at [facility]- pt is on the list for Wednesday next week. ? Medication Needs ? Financial ? Legal ? Other Disposition ? Expected Discharge Date Expected Discharge Date: 01/03/18 ? Transportation Does the patient need discharge transport arranged?: No Transportation Name, Phone and Availability #1: Marvin Kaiser. Transportation Name, Phone and Availability #2: [phone]. Does the patient use Medicaid Transportation?: No ? Next Level of Care (Acute Psych discharges only) ? Discharge Disposition Durable Medical Equipment No service has been selected for the patient. Destination No service has been selected for the patient. Home Care No service has been selected for the patient. Dialysis/Infusion No service has been selected for the patient. Erika Werner [facility] [place] *[phone] * Care Plan - Anita Hines RN - 12/29/2017 1:48 AM CDT Problem: Discharge Planning Goal: Knowledge regarding plan of care Outcome: Goal Ongoing Patient updated on POC. Goal: Prepared for discharge Outcome: Goal Ongoing Patient updated on POC Problem: Pain Goal: Knowledge of pain management Outcome: Goal Achieved Date Met: 12/29/17 Patient educated on pain medications available. Problem: Skin Integrity Goal: Skin integrity intact Outcome: Goal Ongoing Wound team consulted. Cleaned abdominal/vaginal wounds per wound team recs. Problem: Infection, Risk of Goal: Knowledge of Infection Control Procedures Outcome: Goal Achieved Date Met: 12/29/[address]. * Case Mgmt DC Plan - Pancho Werneri - 12/28/2017 2:07 PM CDT Formatting of this note may be different from the original. Case Management Progress Note NAME:Beata Kaiser : AGE: 52 y.o. ADMISSION DATE: 12/13/2017 DAYS ADMITTED: LOS: 15 days Todays Date: 12/28/2017 Plan Anticipate pt will discharge to SNF pending acceptance, when medically stable. Sw reviewed EMR and met with team. Pt is getting colostomy on 12/30. Interventions ? Support Support: Pt/Family Updates re:POC or DC Plan Sw met with pt at bedside to discuss discharge planning. Pt's and two other family members were present. Pt stated that she spoke with RUSTY Chopra And she does not believe that she could endure 3 hours of PT a day. Pt would prefer SNF level care. Sw encouraged pt to look over SNF in network lists. Sw will follow up with pt in the morning. ? Info or Referral ? Discharge Planning ? Medication Needs ? Financial ? Legal ? Other Disposition ? Expected Discharge Date Expected Discharge Date: 01/03/18 ? Transportation Does the patient need discharge transport arranged?: No Transportation Name, Phone and Availability #1: Marvin Kaiser. Transportation Name, Phone and Availability #2: [phone]. Does the patient use Medicaid Transportation?: No ? Next Level of Care (Acute Psych discharges only) ? Discharge Disposition Durable Medical Equipment No service has been selected for the patient. Destination No service has been selected for the patient. Home Care No service has been selected for the patient. Dialysis/Infusion No service has been selected for the patient. Erika Werner LMSW *[phone] * Case Mgmt DC Plan - Pancho Werneri - 12/24/2017 3:46 PM CDT Formatting of this note may be different from the original. Case Management Progress Note NAME:Beata Kaiser : AGE: 52 y.o. ADMISSION DATE: 12/13/2017 DAYS ADMITTED: LOS: 11 days Todays Date: 12/24/2017 Plan Anticipate pt will discharge to SNF pending acceptance, when medically stable. Micki reviewed EMR and met with team. Interventions ? Support Support: Pt/Family Updates re:POC or DC Plan Sw met with pt at bedside to discuss discharge planning. Pt stated that she had not looked at the lists due to feeling overwhelmed. Sw provided emotional support and went over lists with pt. Pt stated that she thinks that she would like to go to a SNF near as opposed to near her home. Sw left pt with list of SNFs near that are in network. ? Info or Referral ? Discharge Planning ? Medication Needs ? Financial ? Legal ? Other Disposition ? Expected Discharge Date Expected Discharge Date: 12/29/17 ? Transportation Does the patient need discharge transport arranged?: No Transportation Name, Phone and Availability #1: Marvin Kaiser. Transportation Name, Phone and Availability #2: [phone]. Does the patient use Medicaid Transportation?: No ? Next Level of Care (Acute Psych discharges only) ? Discharge Disposition Durable Medical Equipment No service has been selected for the patient. Destination No service has been selected for the patient. Home Care No service has been selected for the patient. Dialysis/Infusion No service has been selected for the patient. Erika Werner [facility] [place] *[phone] * Critical Results - Emely Paredes - 12/24/2017 10:48 AM CDT Critical result or procedure called (document test and value, and read back): Positive blood cultures on right arm drawn /5 at 1305. Gram positive cocci resembling Strep. Time MD/LOADING SUPERVISOR Notified: [id number] MD/LOADING SUPERVISOR Name: Dr. Zarate notified at this time MD/LOADING SUPERVISOR Response/Orders Given: calling infectious disease to notify them * Case Mgmt DC Plan - Erika Werner - 12/23/2017 3:12 PM CDT Formatting of this note may be different from the original. Case Management Progress Note NAME:Beata Kaiser : AGE: 52 y.o. ADMISSION DATE: 12/13/2017 DAYS ADMITTED: LOS: 10 days Todays Date: 12/23/2017 Plan Anticipate pt will discharge to SNF pending acceptance, when medically stable. Micki reviewed EMR and met with team. Team reported concerns regarding pt's wounds and AMS. Psych is consulted. Interventions ? Support Support: Pt/Family Updates re:POC or DC Plan Sw met with pt at bedside and pt was unable to answer questions regarding referrals. Sw met with pt at bedside again later- pt was on the phone and did not respond to Sw. Sw called pt's and left a message requesting a return call. Sw will follow up tomorrow. ? Info or Referral ? Discharge Planning ? Medication Needs ? Financial ? Legal ? Other Disposition ? Expected Discharge Date Expected Discharge Date: 12/27/17 ? Transportation Does the patient need discharge transport arranged?: No Transportation Name, Phone and Availability #1: Marvin Kaiser. Transportation Name, Phone and Availability #2: [phone]. Does the patient use Medicaid Transportation?: No ? Next Level of Care (Acute Psych discharges only) ? Discharge Disposition Durable Medical Equipment No service has been selected for the patient. [facility] Destination No service has been selected for the patient. Home Care No service has been selected for the patient. Dialysis/Infusion No service has been selected for the patient. Erika Werner [facility] *[phone] * Patient Education - Kerline Kruger RN - 12/23/2017 10:00 AM CDT Beata Kaiser accepted education and was engaged. she verbalized understanding. The following was discussed: Plan of care reviewed with patient. Patient verbalized understanding of plan of care and anticipating working with PT and OT. Scheduled and PRN medications reviewed with patient. Follow up should occur daily. Kerline Kruger RN * Patient Education - Kendrick Varma RN - 12/22/2017 5:13 PM CDT Beata Kaiser accepted education and was engaged. she verbalized understanding. The following was discussed: Plan of care, medications. Follow up should occur as needed. Continue to address: changes in plan of care, medication. Kendrick Varma RN * Case Mgmt DC Plan - Erika Werner - 12/22/2017 3:07 PM CDT Formatting of this note may be different from the original. Case Management Progress Note NAME:Beata Kaiser : AGE: 52 y.o. ADMISSION DATE: 12/13/2017 DAYS ADMITTED: LOS: 10 days Todays Date: 12/23/2017 Plan Anticipate pt discharging to SNF, pending acceptance, when medically stable. Interventions ? Support Support: Pt/Family Updates re:POC or DC Plan Micki met with pt at bedside regarding discharge planning. [facility] is out of network. Micki provided pt with in network lists of SNF in both [place] area and near pt's home. Sw will follow up with pt tomorrow. ? Info or Referral ? Discharge Planning tasked [facility] to email list of in network facilities to Sw. ? Medication Needs ? Financial ? Legal ? Other Disposition ? Expected Discharge Date Expected Discharge Date: 12/27/17 ? Transportation Does the patient need discharge transport arranged?: No Transportation Name, Phone and Availability #1: Marvin Kaiser. Transportation Name, Phone and Availability #2: [phone]. Does the patient use Medicaid Transportation?: No ? Next Level of Care (Acute Psych discharges only) ? Discharge Disposition Durable Medical Equipment No service has been selected for the patient. [facility] Dest[facility] No service has been selected for the patient. Home Care No service has been selected for the patient. Dialysis/Infusion No service has been selected for the patient. Erika Werner LMSW *[phone] * Case Mgmt DC Plan - Alanna Robertson - 12/22/2017 2:43 PM CDT ACCOUNT SUPPORT REP Note Emailed [facility] with a in-network list of SNF facilities per the request of ZULEIKA Redd [facility] For additional assistance please contact ZULEIKA Redd *[phone] * Patient Education - Hawk Ortega RN - 12/21/2017 6:00 PM CDT Beata Kaiser accepted education and was dismissive. she needs reinforcement. The following was discussed: Maintaining turned to left side for edema issues, good nutrition Follow up should occur daily. Continue to address: needs that arise Hawk Ortega RN * Case Mgmt DC Plan - Mica Pruitt - 12/21/2017 11:45 AM CDT Formatting of this note may be different from the original. Case Management Progress Note NAME:Beata Kaiser : AGE: 52 y.o. ADMISSION DATE: 12/13/2017 DAYS ADMITTED: LOS: 8 days Todays Date: 12/21/2017 Plan Discharge in a couple days pending medical stability, facility acceptance, and insurance approval. Interventions ? Support Support: Pt/Family Updates re:POC or DC Plan ? Info or Referral ? Discharge Planning Covering Sw participated in huddle. Anticipate pt will need placement at discharge and pt may me medically stable for discharge in a couple days. Sw met with pt and family members. Sp[facility] would like Sw [facility] [place], as they are from there. Family has not had time to review other options. Sw faxed referral to [email or web address]. Address: [address] [place] [id number] Primary Sw will continue to follow for discharge planning. ? Medication Needs ? Financial ? Legal ? Other Disposition ? Expected Discharge Date Expected Discharge Date: 12/23/17 ? Transportation Does the patient need discharge transport arranged?: No Transportation Name, Phone and Availability #1: Marvin Kaiser. Transportation Name, Phone and Availability #2: [phone]. Does the patient use Medicaid Transportation?: No ? Next Level of Care (Acute Psych discharges only) ? Discharge Disposition Durable Medical Equipment No service has been selected for the patient. [facility] No service has been selected for the patient. [facility] Home [facility] No service has been selected for the patient. Dialysis/Infusion No service has been selected for the patient. Mica Pruitt [facility] *[phone] * Patient Education - Wilda Trivedi RN - 12/21/2017 6:25 AM CDT This RN initiated education binder and left at patient's bedside for review with day RN. * Case Mgmt DC Plan - Erika Werner - 12/20/2017 3:39 PM CDT Formatting of this note may be different from the original. Case Management Progress Note NAME:Beata Kaiser : AGE: 52 y.o. ADMISSION DATE: 12/13/2017 DAYS ADMITTED: LOS: 7 days Todays Date: 12/20/2017 Plan Anticipate pt discharging to placement, pending acceptance, when medically stable. Sw reviewed EMR and met with team. Pt being moved to floor today. Interventions ? Support Support: Pt/Family Updates re:POC or DC Plan Sw met with pt and family member at bedside and provided information on placement options at discharge. Sw provided SNF list, Medicare.gov list, and IPR list. Sw will follow up tomorrow. ? Info or Referral ? Discharge Planning ? Medication Needs ? Financial ? Legal ? Other Disposition ? Expected Discharge Date Expected Discharge Date: 12/23/17 ? Transportation Does the patient need discharge transport arranged?: No Transportation Name, Phone and Availability #1: Marvin Kaiser. Transportation Name, Phone and Availability #2: [phone]. Does the patient use Medicaid Transportation?: No ? Next Level of Care (Acute Psych discharges only) ? Discharge Disposition Durable Medical Equipment No service has been selected for the patient. Destination No service has been selected for the patient. Home Care No service has been selected for the patient. Dialysis/Infusion No service has been selected for the patient. Erika Werner, [facility] *[phone] * Care Plan - Monica Sal RN - 12/16/2017 1:23 PM CDT Problem: Falls, High Risk of Goal: Absence of falls-Adult Patient Outcome: Goal Ongoing Fall precautions in place Problem: Discharge Planning Goal: Participation in plan of care Outcome: Goal Ongoing Pt participates as able Problem: Anxiety Goal: Alleviation of anxiety Outcome: Goal Ongoing Mild anxiety at this time Problem: Pain Goal: Management of pain Outcome: Goal Ongoing Encourage Epidural DIRECTOR PHARMACOLOGY Problem: Tissue Perfusion, Altered Goal: Adequate tissue perfusion Outcome: Goal Ongoing SCD in place, heparin started Problem: Skin Integrity Goal: Skin integrity intact Outcome: Goal Ongoing No skin breakdown noted Goal: Healing of skin (Pressure Ulcer) Outcome: Goal Ongoing No pressure ulcer seen * Operative Report (DICTATED ONLY) - Spencer Purcell MD - 12/16/2017 7:51 AM CDT Formatting of this note may be different from the original. THE [address] [id number] PATIENT NAME: BEATA KAISER MR#/PT#: [id number] Page 3 OPERATIVE REPORT DATE OF OPERATION: 12/14/2017 SURGEON: Spencer Purcell MD PARTS IDENTIFICATION TECHNICIAN(S): Sarah Schwab MD PREOPERATIVE DIAGNOSIS: Left retroperitoneal/pelvic sarcoma. POSTOPERATIVE DIAGNOSIS: Bladder injury Vaginal injury Urethral injury OPERATIVE PROCEDURE: 1. Cystoscopy with left ureteral stent insertion. 2. Bladder neck repair. 3. Urethroplasty and repair of urethral injury. 4. Vaginal closure. 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 She presents today for elective resection with the orthopedic service. We presented to place a left ureteral stent. She is informed of the risks and benefits of the procedure. Please see their operative note for details. Specific risks include hematuria, bladder injury, ureteral injury, need for future surgery. She understood risks and signed a consent. DESCRIPTION AND FINDINGS OF OPERATIVE PROCEDURE: The patient was taken to the operating room, prior to induction of anesthesia, bilateral stocking compression devices as well as preoperative IV antibiotics were administered. She was then prepped and draped in standard sterile fashion, placed in dorsal lithotomy position with all pressure points padded. A lubricated 21-Welsh cystoscope with 21-Welsh sheath was assembled and placed in the bladder. 360 degree panendoscopy was performed. There was no masses or lesions present. There was no stone, diverticula, trabeculations, or signs of malignancy within the bladder itself. Both ureteral orifices were identified. The left ureteral orifice was intubated with a 0.38 sensor wire and advanced into the kidney. This was then intubated with a 5-Welsh Pollack catheter, which was placed over the wire and then deployed. A 16-Welsh Melchor catheter was placed in the bladder as well as a gallbladder adapter was placed on the left ureteral stent to collect the urine into the same drainage bag. The case was then turned over to the orthopedic surgery service. Later that day, we were recalled to the operating room. After the resection of the pelvis had been performed, there was noted to be a small cystotomy as well as urethral injury. Upon examination, the left lateral portion of the pelvis was gone with a subsequent muscle and cutaneous flap created. The 16-Welsh catheter, which was seen in place revealed a ventral injury to the bladder neck. The mucosa was identified and reapproximated with a series of interrupted 3-0 PDS sutures. The external bladder neck muscular fibers were then secured with interrupted 3-0 PDS sutures. The urethra itself was then examined. There was a stellate shaped tear through the urethra at the level of the bladder neck along with the vaginal meatus. The vaginal meatus was reapproximated in a 7 shaped flap using a running 4-0 Monocryl. Once external vaginal closure was performed, we then closed the urethral injury with a series of interrupted 3-0 PDS sutures. The vagina was then closed with a series of 3- 0 PDS sutures in interrupted fashion and then the lateral musculature of the levator ani and bladder neck were reapproximated. This was a 7 shaped pattern closure as this was a multiplane tear. This closure overall was quite complex in nature given the involvement of the structures and alteration in anatomy. A new 20-Welsh catheter was placed in the bladder and infused with saline and found to have no evidence of extravasation. We then turned the remainder of the case over to the orthopedic surgery service. ESTIMATED BLOOD LOSS: 100 cc SPECIMENS REMOVED: None ATTESTATION I performed this procedure with a resident. Staff name: Spencer Purcell MD Date: 01/03/2018 Spencer Purcell MD SHAHBAZ / MEDQ /[id number] cc: - Spencer Purcell MD * Procedures (Immed Post or Bedside) - Vania Hay MD - 12/15/2017 10: 09 PM CDT Arterial Catheter Insertion The left wrist (Clarke's test normal) was sterilely prepped with chlorhexadine. A 20 gauge arterial catheter was placed via modified Seldinger technique and taped into place. 3 needle stick(s) was/were required for cannulation of the artery. Verification: Patency verified by positive blood return. Vania Hay MD [id number] Associated attestation - Harris Hurst MD - 12/16/2017 11:09 AM CDT Formatting of this note may be different from the original. ATTESTATION I personally discussed the risk/benefit calculus for this procedure with the patient and/or family and/or designated Power of Operative Supervisor. I personally accomplished the pre-operative Time Out. I was personally present for the critical portions of the procedure. I directly observed the resident physician performing other appropriate portions of the procedure, discussed the case with the resident physician, and concur with the resident physician's documentation of the procedure, unless otherwise noted. 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 POSTOPERATIVE DIAGNOSIS: Same. OPERATIVE PROCEDURE: Complicated left hemipelvectomy and jamil-sacrectomy. ANESTHESIA: General. INDICATIONS FOR OPERATIVE PROCEDURE: The patient is a 52-year-old female with a long history of progressive left buttock and lower extremity pain. A lesion was eventually found in her pelvis, involved the entire hemipelvis from the lateral aspect of the sacrum through to the pubis. There was also a large internal and external soft tissue mass. Open biopsy was consistent with intermediate to high-grade chondrosarcoma. Staging CT of her chest demonstrated few small pulmonary nodules. Discussions had with thoracic surgery , who recommended that the pelvic lesion be addressed first and they will resect the masses in the chest. Of note, the patient presented with acute onset of swelling of left lower extremity. On the MRI, there appeared to be DVT within the external iliac vein. The patient's IVC filter was placed after biopsy. The patient was admitted to the hospital the day before surgery to meet with the various consultants as well as to undergo a bowel prep. DESCRIPTION AND FINDINGS OF OPERATIVE PROCEDURE: The patient was brought to the operating room and placed in supine position. General anesthesia was then induced. A left temporary ureteral stent was placed by Dr. Purcell. Once this had been applied, the patient was carefully placed in the right lateral decubitus position with appropriate padding. A stitch was placed in the anus. The left lower extremity and hemipelvis were prepped and draped in the normal sterile fashion. An incision was then made just above the iliac crest extending along the posterior lateral aspect of the left thigh, then going across the thigh just proximal to the superior pole of patella and then going up to the mid aspect of the medial aspect of the thigh. Subcutaneous tissue was opened in line with the skin incision. Due to large mass posteriorly, the plan was to use a quadriceps flap. The IT-band was opened in line with the skin incision laterally. The vastus lateralis origin was identified and removed from bone. The vastus lateralis was then dissected free of the lateral intermuscular septum, clamping or suture ligated a multitude of perforating vessels. The quadriceps tendon was then transected. An incision was then completed on the medial aspect of the thigh. The sartorius was transected proximally. The deep tissues were dissected distally and the femoral vessels were identified. The saphenous nerve was too small to place a catheter and this was clamped, injected with 0.5 percent plain Marcaine, transected and allowed to retract. The individual femoral vessels were identified. Perforating vessels were ligated with suture clips. The femoral artery and vein were individually isolated, clamped, transected and doubly ligated. The quadriceps was then dissected proximally dissecting the artery and vein proximally. Dr. Tirado was consulted at this point as the vessels were somewhat scarred in. These were dissected at the level of the pelvis. The posterior incision was then completed along the iliac crest, going just lateral to the anus and away from the biopsy hematoma. The patient developed a hematoma of the biopsy due to placing her on heparin due to presumed DVT. Subcutaneous tissue was opened in line with the skin incision and beveled away from the ilium. MRI demonstrated that there was lesional tissue within the abdominal muscles and paraspinous muscles. Therefore, the subcutaneous tissue was dissected proximally to transect these proximal to the iliac crest. These elevated proximal level of L4. The abdominal muscles and paraspinous muscles were transected and frozen section of this area was negative for tumor. With elevation of the quadriceps flap from distal to proximal and then exposure of the iliac crest, the pelvis was better identified. Of note, the incision was then connected between the posterior incision and the medial thigh incision. The iliacus was kept intact on the tumor as a margin. The quadriceps flap was then carefully elevated from distal to proximal and then with dissection through the areolar tissue along the iliacus vessels were identified. Dr. Tirado and Dr. Malagon of Vascular Surgery were then involved with the vascular dissection. The vessels were carefully dissected free, keeping the external iliac vessel attached with the flap and ligating the internal iliac vessels. This was done again by Vascular Surgery. Upon examination, the entire length of the external iliac vessel from where it could be palpated above the brim of the ileum down to the distal third of the flap were abnormal appearing and dilated. This; however, did not have the gross appearance of DVT. Therefore, Dr. Malagon opened the vessel and large portions of the material were extracted from the vein that had the appearance of chondrosarcoma. Frozen section confirmed this as tumor. In addition to the course of additional dissection along the pelvis, tumor was found in some small perforating vessels. Dr. Mccollum was also scrubbed in at this point. It was felt that we needed to complete the hemipelvectomy as we gone so far within the procedure. In addition , there was no way to bypass the area of effected vein due to the very long extent of this and the vein would not have remained open and there appeared to be tumor within the smaller veins. In addition, there would not have been sufficient pedicle proximally and to place another flap such as a free fillet leg flap or latissimus flap. The gluteus priyank was removed from the sacrum posteriorly. The hip was internally rotated and sacrospinous ligaments were identified, transected. The pelvic floor muscles were bluntly and then sharply dissected off the inner aspect of the ilium keeping these intact. The SI joint was identified posteriorly. An osteotome was utilized to transect the sacrum just lateral to the neural foramina. Then, the SI joint was identified anteriorly. The lumbosacral plexus was clamped and ligated. The sciatic nerve was injected with 0.5 percent plain Marcaine, clamped and transected. The piriformis was transected. The sacral ala was then transected with an osteotome anteriorly just along the SI joint. The pubic symphysis was then exposed in subperiosteal fashion. Deep retractor was placed under the symphysis. An osteotome was utilized to open the symphysis. Curettings in this area were questionable for tumor. Therefore, additional bone was taken on the right side of the pubis. We were well away from tumor at this point. The hemipelvis was externally rotated and this allowed eventually remainder of the soft tissue to be transected and likely removed from the field. An osteotome was utilized to remove a portion of the sacral ala tissue or little tumor been removed. Frozen section in this area was negative for tumor. It was thought all soft tissue and bone tumor had been removed. It was thought again that there was no way to remove the tumor within the vein. The vein was in extremely poor condition. However, there was backflow. The vein repair was performed by Vascular Surgery. Dr. Mccollum noted a rent within the urethra and the vagina. Dr. Purcell was then consulted. This repaired need to be dictated separately. All repairs were then performed. The wound was irrigated with 2 L of nonpulsatile antibiotic lavage. Hemostasis with combination of clip and suture ligation as well as electrocautery. The wound was sprayed extensively with thrombin. Bone wax was used to seal the pubis and the sacrum. A deep drain was placed and sutured into place. The clamp was removed. The sciatic nerve and PMC catheter was placed in the labeled sciatic and the nerve was ligated with silk ties. The quadriceps flap was then reduced and was then seated posteriorly. Number 2 Ethibond suture was used for the deep fascia and deep tissue was closed with 0 and 2-0 Vicryl suture. Skin was closed with ceci. A sterile dressing was applied. The patient was then returned to supine position and taken to the intensive care unit. ESTIMATED BLOOD LOSS: 2000 mL. SPECIMENS REMOVED: Tissue for margins (frozen) and left hemipelvis and LE ( permanent) MD SARAH Guy / URIEL /[id number] cc: - Tamiko Luther MD - Spencer Purcell MD * Anesthesia Post Op Day 1 - Harry Iniguez DO - 12/15/2017 7:53 AM CDT Formatting of this note may be different from the original. Anesthesia Follow-Up Evaluation: Post-Procedure Day One Name: Beata Kaiser : 1965 Age: 52 y.o. Sex: female Procedure Date: 12/14/2017 Procedure: Procedure(s) with comments: JAMIL PELVECTOMY - CASE LENGTH 5 HOURS CYSTORRHAPHY AND BLADDER NECK REPAIR, CYSTOSCOPY, LEFT ILIAC EXPOSURE Physical Assessment Height: 162.6 cm (64") Weight: 104.8 kg (231 lb 0.7 oz) Vital Signs (Last Filed in 24 hours) BP: 105/54 (12/15 0700) Temp: 36.8 C (98.2 F) (12/15 0400) Pulse: 126 (12/15 0700) Respirations: 17 PER MINUTE (12/15 07) SpO2: 92 % (12/15 699) O2 Delivery: None (Room Air) (12/15 699) SpO2 Pulse: 125 (12/15 0600) Patient History Allergies Allergies Allergen Reactions Cephalexin SEE COMMENTS Face gets red, feels really hot Medications Scheduled Meds: acetaminophen (TYLENOL) tablet 1,000 mg 1,000 mg Per NG tube Q6H* buPROPion XL (WELLBUTRIN XL) tablet 150 mg 150 mg Oral BID busPIRone (BUSPAR) tablet 30 mg 30 mg Per NG tube BID clindamycin (CLEOCIN) 600 mg/D5W 50 mL IVPB 600 mg Intravenous Q8H* enoxaparin (LOVENOX) syringe 100 mg 1 mg/kg Subcutaneous BID famotidine (PEPCID) injection 20 mg 20 mg Intravenous BID gabapentin (NEURONTIN) oral solution 600 mg 600 mg Per NG tube TID gentamicin 105 mg in sodium chloride 0.9% (NS) 100 mL IVPB 1 mg/kg Intravenous Q8H insulin aspart U-100 (NOVOLOG FLEXPEN) injection PEN 0-14 Units 0-14 Units Subcutaneous 5 X Day levothyroxine (SYNTHROID) tablet 175 mcg 175 mcg Per NG tube QDAY before breakfast Continuous Infusions: bupivacaine DIRECTOR PHARMACOLOGY PNC 0.125% infusion syringe HYDROmorphone (DILAUDID) DIRECTOR PHARMACOLOGY 11 mg/NS 55mL infusion syr (std conc)(premade ) ketamine (KETALAR) 250 mg in dextrose 5% (D5W) 250 mL IV drip (ADULT) lactated ringers infusion 100 mL/hr at 12/14/172106 PRN and Respiratory Meds:diphenhydrAMINE Q6H PRN OR diphenhydrAMINE Q6H PRN , hyoscyamine Q4H PRN, naloxone PRN, ondansetron (ZOFRAN) IV Q6H PRN, promethazine Q10 MIN PRN Diagnostic Tests Hematology: Lab Results Component Value Date HGB 8.4 12/15/2017 HCT 25.0 12/15/2017 PLTCT 165 12/15/2017 WBC 16.9 12/15/2017 NEUT 86 12/14/2017 ANC 11.40 12/14/2017 ALC 0.80 12/14/2017 CALVIN 8 12/14/2017 AMC 1.10 12/14/2017 EOSA 0 12/14/2017 ABC 0.00 12/14/2017 MCV 91.4 12/15/2017 MCH 30.6 12/15/2017 MCHC 33.4 12/15/2017 MPV 7.3 12/15/2017 RDW 15.0 12/15/2017 General Chemistry: Lab Results Component Value Date NA 141 12/15/2017 K 4.2 12/15/2017 CL 111 12/15/2017 CO2 15 12/15/2017 GAP 15 12/15/2017 BUN 13 12/15/2017 CR 0.55 12/15/2017 GLU 198 12/15/2017 CA 7.8 12/15/2017 LACTIC 0.8 12/14/2017 OBSCA 1.11 12/15/2017 MG 2.0 12/15/2017 PO4 3.2 12/15/2017 Coagulation: Lab Results Component Value Date PTT 23.7 12/14/2017 INR 1.0 11/30/2017 Follow-Up Assessment Patient location during evaluation: ICU Anesthetic Complications: Anesthetic complications: The patient did not experience any anesthestic complications. Pain: Score: 10 Management:inadequate Level of Consciousness: awake and alert Hydration:acceptable Airway Patency: patent Respiratory Status: acceptable Cardiovascular Status:acceptable Regional/Neuroaxial: Peripheral nerve catheter in place Comments: Patient discussed with pain concerns with APS prior to me entering her room for post-op evaluation. They're working to improve level of pain management. * Care Plan - Kenneth Alva - 12/15/2017 3:20 AM CDT Problem: Pain Goal: Management of pain Outcome: Goal Ongoing Pain being managed with narcotics and routine repositioning. Problem: Skin Integrity Goal: Skin integrity intact Outcome: Goal Ongoing 4 eyes assessment performed Goal: Healing of skin (Pressure Ulcer) Not applicable * Procedures (Immed Post or Bedside) - Adrienne Zarate MD - 12/14/2017 6:40 PM CDT Formatting of this note may be different from the original. Brief Operative Note Name: Beata Kaiser is a 52 y.o. female : 1965 MRN# : [id number] DATE OF OPERATION: 12/14/2017 Date: 12/14/2017 Preoperative Dx: Pelvic mass [R19.00] Post-op Diagnosis * Pelvic mass [R19.00] Procedure(s) (LRB): JAMIL PELVECTOMY (Left) CYSTORRHAPHY AND BLADDER NECK REPAIR, CYSTOSCOPY, (Bilateral) LEFT ILIAC EXPOSURE (Left) Anesthesia Type: General Surgeon(s) and Role: Panel 1: * Casa George MD - Resident - Assisting * Aimee Mccollum DO - Assisting * Sarah Schwab MD - Resident - Assisting * Tamiko Luther MD - Primary * Adrienne Zarate MD - Resident - Assisting Panel 2: * Spencer Purcell MD - Primary * Spencer Purcell MD - Primary Panel 3: * Pio Malagon DO - Primary * Anand Tirado MD - Co-Surgeon Findings: large L pelvic mass Estimated Blood Loss: 1990 ml Specimen(s) Removed/Disposition: ID Type Source Tests Collected by Time Destination 1 : 1. ABDOMINAL MUSCLE MARGIN Tissue Abdomen SURGICAL PATHOLOGY Tamiko Luther MD 12/14/2017 1005 2 : 2. PARASPINOUS MUSCLE MARGIN Tissue Abdomen SURGICAL PATHOLOGY Tamiko Luther MD 12/14/2017 1017 3 : 3. PSOAS MARGIN Tissue Hip SURGICAL PATHOLOGY Tamiko Luther MD 12/14/2017 1131 4 : 4. PUBIS MARGIN Tissue Pelvis SURGICAL PATHOLOGY Tamiko Luther MD 12/14/2017 1347 5 : 5. PUBIS MARGIN #2 Tissue Pelvis SURGICAL PATHOLOGY Tamiko Luther MD 12/14/2017 1422 6 : VEIN CONTENTS FOR FROZEN Tissue Vein SURGICAL PATHOLOGY Tamiko Luther MD 12/14/2017 1430 7 : SACRUM FOR FROZEN Tissue Sacral SURGICAL PATHOLOGY Tamiko Luther MD 12/14/2017 1523 8 : LEFT HEMIPELVECTOMY Tissue Leg SURGICAL PATHOLOGY Tamiko Luther MD 12/14/2017 1654 9 : ADDITIONAL TISSUE, LEFT HEMIPELVECTOMY Tissue Leg SURGICAL PATHOLOGY Tamiko Luther MD 12/14/2017 1736 Complications: None Implants: None Drains: Melchor Catheter: 0 mL, Nasogastric tube: 0 mL and Carlos Manuel-Torres Drain: # 10=0 mL Disposition: ICU - stable Post Op Recs: -NPO, NG tube -Gentamycin x24 hours, Clinda until drain comes out -Melchor catheter x4 wks minimum -Maintain dressings, ortho to manage -MANNY drain to bulb suction -SICU consult -PNC sciatic nerve- anesthesia to manage pain while PNC in place -Please do not leave flat for extended periods of time, would like patient to lay onto her right side as much as possible Adrienne Zarate MD Pager [phone] Associated attestation - Tamiko Luther MD - 12/24/2017 1:37 PM CDT I performed the hemipelvectomy and hemisacrectomy with the resident. 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 POSTOPERATIVE DIAGNOSIS: Same. OPERATIVE PROCEDURE: 1. Repair of the left common and external iliac vein by direct venous repair within the abdominal cavity and pelvis (CPT code 43375). 2. Mobilization and exposure of the common femoral artery and vein, external iliac artery and vein, common iliac artery and vein. ANESTHESIA: General. INDICATIONS FOR OPERATIVE PROCEDURE: The patient is a 52-year-old female, who I was asked by the Orthopedic Oncology team to help assist with arterial and venous exposure during a left hemipelvectomy. DESCRIPTION AND FINDINGS OF OPERATIVE PROCEDURE: Dr. Tamiko Luther had initiated the procedure and I joined the procedure when they were ready for us to mobilize the vessels. The common femoral artery, profunda femoral artery, external iliac artery and vein, common iliac artery and vein were all mobilized. There was significant concern for thrombus within the hypogastric vein as well as the common iliac vein and this was also represented on her MRI and CT scan. I was able to divide the hypogastric vein and while mobilizing this, we discovered that the entire vein was positive for tumor within the lumen of the vein. All of this was subsequently removed, but this left a large defect within the junction of the common iliac vein and external iliac vein. The stump of the hypogastric vein was subsequently oversewn using 6-0 Prolene suture in running fashion. Following this, our clamp was released and there was excellent hemostasis. Next, due to the large defect within the common iliac vein and external iliac vein, this required primary repair as this was the only venous outflow for her pedicle that was going to be used to close her stump. For this reason, a 6-0 Prolene suture was placed at each corner of the large defect and then was primarily closed using running 6-0 Prolene suture. Prior to closing the venotomy, I did backbleed the vein and antegrade flushed the vein appropriately. Next, the venotomy was closed and flow was restored. The patient required 1 repair suture with a 6-0 Prolene suture with excellent hemostasis. There was brisk flow through the vein at the conclusion of the repair. Next, the hypogastric artery was also ligated and divided. Following this, we were able to mobilize the vein and the artery out of the field so that the pelvis could be divided. The remainder of the procedure will be dictated separately by the Orthopedic Oncology team. At the conclusion of my portion of the procedure, the patient was in stable condition. Blood loss and other details of the procedure will be discussed by the other team. ESTIMATED BLOOD LOSS: 100 mL SPECIMENS REMOVED: None. COMPLICATIONS: None. Pio Malagon DO AT / MED /[id number] cc: - Pio Malagon DO * Operative Report (Direct Entry) - Spencer Purcell MD - 12/14/2017 8:36 AM CDT Formatting of this note may be different from the original. OPERATIVE REPORT Name: Beata Kaiser is a 52 y.o. female : 1965 MRN# : [id number] DATE OF OPERATION: 12/14/2017 Surgeon(s) and Role: Panel 1: * Tamiko Luther MD - Primary * Adrienne Zarate MD - Resident - Assisting * Anand Tirado MD - Assisting * Casa George MD - Resident - Assisting * Pio Malagon DO - Assisting * Spencer Purcell MD - Assisting * Aimee Mccollum DO - Assisting * Sarah Schwab MD - Resident - Assisting Panel 2: * Spencer Purcell MD - Primary * Darius Dejesus MD - Resident - Assisting Preoperative Diagnosis: Pelvic mass [R19.00] Post-op Diagnosis * Pelvic mass [R19.00] Procedure(s) (LRB): JAMIL PELVECTOMY (Left) CYSTOSCOPY INSERTION STENT URETER (Bilateral) Anesthesia Type: General Indication for procedure: Description and Findings of Operative Procedure: Findings: Unremarkable cystourethroscopy and uneventful left temporary ureteral stent placement After informed consent was obtained from the patient, she was taken to the operating room. After smooth induction of general anesthesia she was placed in the dorsal lithotomy position. She was prepped and draped in the usual sterile fashion. A 22Fr rigid cystoscope with 30 degree lens was advanced into the urethra without difficulty. Pancystoscopy revealed no bladder masses or lesions. Bilateral orthotopic ureteral orifices were noted. A sensor-tip wire was advanced into the left UO and a 5Fr open ended Pollack catheter was advanced over the wire until resistance was met at approximately 28cm. The cystoscope was backloaded off the Pollack and a 16Fr catheter inserted into the bladder without difficulty. The Pollack was secured to the catheter with two silk ties. The Pollack and Melchor were both left to dependent drainage with plans for the Pollack to be removed at the conclusion of the case. Urology was called back into the procedure later in the case. Please see separate dictation for further details. Estimated Blood Loss: None for the initial urology portion of the procedure. Specimen(s) Removed/Disposition: ID Type Source Tests Collected by Time Destination 1 : 1. ABDOMINAL MUSCLE MARGIN Tissue Abdomen SURGICAL PATHOLOGY Tamiko Luther MD 12/14/2017 1005 2 : 2. PARASPINOUS MUSCLE MARGIN Tissue Abdomen SURGICAL PATHOLOGY Tamiko Luther MD 12/14/2017 1017 3 : 3. PSOAS MARGIN Tissue Hip SURGICAL PATHOLOGY Tamiko Luther MD 12/14/2017 1131 4 : 4. PUBIS MARGIN Tissue Pelvis SURGICAL PATHOLOGY Tamiko Luther MD 12/14/2017 1347 5 : 5. PUBIS MARGIN #2 Tissue Pelvis SURGICAL PATHOLOGY Tamiko Luther MD 12/14/2017 1422 6 : VEIN CONTENTS FOR FROZEN Tissue Vein SURGICAL PATHOLOGY Tamiko Luther MD 12/14/2017 1430 7 : SACRUM FOR FROZEN Tissue Sacral SURGICAL PATHOLOGY Tamiko Luther MD 12/14/2017 1523 Attestation: Dr. Purcell was present for the entirety of the initial urology portion of the procedure. Darius Dejesus MD Pager [phone] ATTESTATION I performed this procedure with a resident. Staff name: Spencer Purcell MD Date: 01/03/2018 * Case Mgmt DC Plan - Andra Tejada RN - 12/13/2017 11:04 AM CDT Case Management Admission Assessment NAME:Beata Kaiesr : AGE: 52 y.o. ADMISSION DATE: 12/13/2017 DAYS ADMITTED: LOS: 0 days Todays Date: 12/13/2017 Source of Information: Patient. 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 Pt presents today for a hemipelvectomy scheduled for 12/14/17. Heparin drip for DVT to stop at MN prior to procedure per prog note. Covering NCM reviewed EMR for POC. Pt was independent with ADLs and driving prior to admission. NCM/SW to f/u post op for possible needs. Pt encouraged to call with questions or concerns. Patient Address/Phone [address] [phone] (home) Emergency Contact Extended Emergency Contact Information Primary Emergency Contact: Marvin Kaiser [facility] Relation: Spouse Secondary Emergency Contact: Lynn Kaiser [facility] Relation: Daughter Healthcare Directive None on file. Transportation Does the patient need discharge transport arranged?: No Transportation Name, Phone and Availability #1: Marvin Kaiser. Transportation Name, Phone and Availability #2: [phone]. Does the patient use Medicaid Transportation?: No Expected Discharge Date Expected Discharge Date: 12/24/17 Living Situation Prior to Admission ? Living Arrangements Type of Residence: Home, independent Living Arrangements: Spouse/significant other, Family members (Lives with 2 daughters and and their boy friends.) Bathroom Shower / Tub: Tub/Shower Unit How many levels in the residence?: 1 Can patient live on one level if needed?: Yes Does residence have entry and/or side stairs?: (2 entry steps.) Assistance needed prior to admit or anticipated on discharge: No Who provides assistance or could if needed?: Daughters, spouse (Marvin). Are they in good health?: Yes Can support system provide 24/7 care if needed?: Yes ? Level of Function Prior level of function: Independent (Prior to admission Pt was independent with ADLs and driving.) ? Cognitive Abilities Cognitive Abilities: Alert and Oriented, Engages in problem solving and planning , Participates in decision making, Recognizes impact of health condition on lifestyle Financial Resources ? Coverage Primary Insurance: Commercial insurance ([facility]/ [employer] PPO.) ? 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 Financial Assistance Needed? None at this time. Psychosocial Needs ? Mental Health Mental Health History: No ? Substance Use History Substance Use History Screen: No ? Other None. Current/Previous Services ? PCP Della Cuellar, , ? Pharmacy [address] [address] ? Durable Medical Equipment Durable Medical Equipment [...] In the past Name of rehab location/group: [facility]. Would patient return for future services?: Yes OT: No ERP IMPLEMENTATION CONSULTANT: No ? Long Term Facility/Shelter SNF: No NH: No ? Inpatient Rehab IPR: No ? Long-Term Acute Care Hospital LTACH: No ? Acute Hospital Stay Acute Hospital Stay: In the past Was patient's stay within the last 30 days?: Yes When did patient receive care?: 2 weeks ago. Name of hospital: [facility]. Andra Tejada RN, BSN, MSN Integrative Nurse Charge Authorizer Pager -[phone] in this encounter Plan of Treatment Date Type Specialty Care Team Description 03/01/2018 Procedure Pass Cardiothoracic Surgery Name Priority Associated Diagnoses Order Schedule SURGICAL PATHOLOGY Routine Pelvic mass ONCE for 1 Occurrences starting 12/14/2017 SURGICAL PATHOLOGY Routine Pelvic mass in female ONCE for 1 Occurrences starting 12/30/2017 as of this encounter Procedures Procedure Name Priority Date/Time Associated Diagnosis Comments ECG-SCAN 01/21/2018 Results for this 7:53 AM [...] procedure are in the results section. CYSTOGRAM, MELCHOR CATHETER 01/10/2018 Chondrosarcoma (HCC) EXCHANGE 9:35 AM CDT WOUND EXPLORATION LEFT 01/10/2018 Chondrosarcoma (HCC) HEMIPELVECTOMY, 9:35 AM CDT IRRIGATION AND DEBRIDEMENT, WOUND VAC PLACEMENT ECG-SCAN 01/02/2018 Results for this 7:45 PM CDT procedure are in the results section. CONSULT IV THERAPY TEAM STAT 12/30/2017 3:42 PM CDT ECG-SCAN 12/22/2017 Results for this 8:10 AM CDT procedure are in the results section. ECG-SCAN 12/22/2017 Results for this 8:10 AM CDT procedure are in the results section. CONSULT IV THERAPY TEAM Routine 12/13/2017 11:06 AM CDT in this encounter Results * ECG-SCAN (01/21/2018 7:53 AM) Narrative Ordered by an unspecified provider. * ECG-SCAN (01/21/2018 7:53 AM) Narrative Ordered by an unspecified provider. * ECG-SCAN (01/21/2018 7:53 AM) Narrative Ordered by an unspecified provider. * ECG-SCAN (01/15/2018 12:45 PM) Narrative Ordered by an unspecified provider. * TELEMETRY STRIPS-SCAN (01/15/2018 11:03 AM) Narrative Ordered by an unspecified provider. * POC GLUCOSE (01/14/2018 12:05 PM) Component Value Ref Range Glucose, POC 114 (H) 70 - 100 MG/DL Specimen Performing Laboratory [facility] [address] [place] [address] * POC GLUCOSE (01/14/2018 7:16 AM) Component Value Ref Range Glucose, POC 144 (H) 70 - 100 MG/DL Specimen Performing Laboratory [facility] [address] [place] [address] * LIVER FUNCTION PANEL (01/14/2018 4:40 AM) Component Value Ref Range Total Bilirubin 0.2 (L) 0.3 - 1.2 MG/DL Bilirubin, Direct 0.2 <0.4 MG/DL Albumin 2.3 (L) 3.5 - 5.0 G/DL Alk Phosphatase 92 25 - 110 U/L AST (SGOT) 20 7 - 40 U/L ALT (SGPT) 19 7 - 56 U/L Total Protein 5.4 (L) 6.0 - 8.0 G/DL Specimen Performing Laboratory MA[facility] [address] [place] [phone] * BASIC METABOLIC PANEL (01/14/2018 4:40 AM) Component Value Ref Range Sodium 137 [...] questions. Specimen Performing Laboratory Blood [facility] [address] [place] [id number] * CBC (01/14/2018 4:40 AM) Component Value Ref Range White Blood Cells 10.9 4.5 - 11.0 K/UL RBC 2.73 (L) 4.0 - 5.0 M/UL Hemoglobin 7.8 (L) 12.0 - 15.0 GM/DL Hematocrit 23.1 (L) 36 - 45 % MCV 84.6 80 - 100 FL MCH 28.7 26 - 34 PG MCHC 33.9 32.0 - 36.0 G/DL RDW 17.1 (H) 11 - 15 % Platelet Count 641 (H) 150 - 400 K/UL MPV 6.2 (L) 7 - 11 FL Specimen Performing Laboratory Blood [facility] [address] [place] [address] * POC GLUCOSE (01/14/2018 2:54 AM) Component Value Ref Range Glucose, POC 218 (H) 70 - 100 MG/DL Specimen Performing Laboratory [facility] [address] [place] [address] * POC GLUCOSE (01/13/2018 9:07 PM) Component Value Ref Range Glucose, POC 125 (H) 70 - 100 MG/DL Specimen Performing Laboratory [facility] [address] [place] [address] * POC GLUCOSE (01/13/2018 5:46 PM) Component Value Ref Range Glucose, POC 136 (H) 70 - 100 MG/DL Specimen Performing Laboratory [facility] [address] [place] [address] * POC GLUCOSE (01/13/2018 12:09 PM) Component Value Ref Range Glucose, POC 89 70 - 100 MG/DL Specimen Performing Laboratory [facility] [address] [place] [address] * POC GLUCOSE (01/13/2018 7:40 AM) Component Value Ref Range Glucose, POC 111 (H) 70 - 100 MG/DL Specimen Performing Laboratory [facility] [address] [place] [address] * BASIC METABOLIC PANEL (01/13/2018 3:42 AM) Component Value Ref Range Sodium 135 (L) 137 - 147 MMOL/L Potassium 4.5 3.5 - 5.1 MMOL/L Chloride 100 98 - 110 MMOL/L CO2 27 21 - 30 MMOL/L Anion Gap 8 3 - 12 Glucose 216 (H) 70 - 100 MG/DL Blood Urea Nitrogen 14 7 - 25 MG/DL Creatinine 0.66 0.4 - 1.00 MG/DL Calcium 8.5 8.5 [...] Pharmacist for questions. Specimen Performing Laboratory Blood [facility] [address] [place] [address] * CBC (01/13/2018 3:42 AM) Component Value Ref Range White Blood Cells 9.9 4.5 - 11.0 K/UL RBC 3.76 (L) 4.0 - 5.0 M/UL Hemoglobin 10.9 (L) 12.0 - 15.0 GM/DL Hematocrit 31.8 (L) 36 - 45 % MCV 84.6 80 - 100 FL MCH 28.9 26 - 34 PG MCHC 34.2 32.0 - 36.0 G/DL RDW 16.8 (H) 11 - 15 % Platelet Count 630 (H) 150 - 400 K/UL MPV 6.1 (L) 7 - 11 FL Specimen Performing Laboratory Blood [facility] [address] [place] [address] * TRIGLYCERIDE (01/13/2018 3:42 AM) Component Value Ref Range Triglycerides 254 (H) <150 MG/DL Specimen Performing Laboratory Blood [facility] [address] [place] [address] * POC GLUCOSE (01/13/2018 2:33 AM) Component Value Ref Range Glucose, POC 200 (H) 70 - 100 MG/DL Specimen Performing Laboratory [facility] [address] [place] [address] * POC GLUCOSE (01/12/2018 10:39 PM) Component Value Ref Range Glucose, POC 87 70 - 100 MG/DL Specimen Performing Laboratory [facility] [address] [place] [address] * POC GLUCOSE (01/12/2018 5:55 PM) Component Value Ref Range Glucose, POC 107 (H) 70 - 100 MG/DL Specimen Performing Laboratory [facility] [address] [place] [address] * POC GLUCOSE (01/12/2018 12:24 PM) Component Value Ref Range Glucose, POC 67 (L) 70 - 100 MG/DL Specimen Performing Laboratory [facility] [address] [place] [address] * POC GLUCOSE (01/12/2018 7:42 AM) Component Value Ref Range Glucose, POC 141 (H) 70 - 100 MG/DL Specimen Performing Laboratory [facility] [address] [place] [address] * BASIC METABOLIC PANEL (01/12/2018 6:12 AM) Component Value Ref Range Sodium 138 137 - 147 MMOL/L Potassium 4.1 3.5 - 5.1 MMOL/L Chloride 102 98 - 110 MMOL/L CO2 29 21 - 30 MMOL/L Anion Gap 7 3 - 12 Glucose 192 (H) 70 - 100 MG/DL Blood Urea Nitrogen 19 7 - 25 MG/DL Creatinine 0.54 0.4 - 1.00 MG/DL Calcium 8.1 (L) 8.5 - 10.6 MG/DL eGFR Non [...] Pharmacist for questions. Specimen Performing Laboratory Blood [facility] [address] [place] [address] * CBC (01/12/2018 6:12 AM) Component Value Ref Range White Blood Cells 9.7 4.5 - 11.0 K/UL RBC 2.72 (L) 4.0 - 5.0 M/UL Hemoglobin 7.9 (L) 12.0 - 15.0 GM/DL Hematocrit 23.4 (L) 36 - 45 % MCV 86.2 80 - 100 FL MCH 29.0 26 - 34 PG MCHC 33.6 32.0 - 36.0 G/DL RDW 16.4 (H) 11 - 15 % Platelet Count 747 (H) 150 - 400 K/UL MPV 6.2 (L) 7 - 11 FL Specimen Performing Laboratory Blood [facility] [address] [place] [address] * POC GLUCOSE (01/12/2018 2:17 AM) Component Value Ref Range Glucose, POC 184 (H) 70 - 100 MG/DL Specimen Performing Laboratory [facility] [address] [place] [address] * POC GLUCOSE (01/11/2018 8:39 PM) Component Value Ref Range Glucose, POC 196 (H) 70 - 100 MG/DL Specimen Performing Laboratory [facility] [address] [place] [address] * POC GLUCOSE (01/11/2018 5:08 PM) Component Value Ref Range Glucose, POC 128 (H) 70 - 100 MG/DL Specimen Performing Laboratory [facility] [address] [place] [address] * POC GLUCOSE (01/11/2018 11:27 AM) Component Value Ref Range Glucose, POC 160 (H) 70 - 100 MG/DL Specimen Performing Laboratory [facility] [address] [place] [address] * POC GLUCOSE (01/11/2018 7:17 AM) Component Value Ref Range Glucose, POC 218 (H) 70 - 100 MG/DL Specimen Performing Laboratory [facility] [address] [place] [address] * BASIC METABOLIC PANEL (01/11/2018 3:40 AM) Component Value Ref Range Sodium 136 (L) 137 - 147 MMOL/L Potassium 4.0 3.5 - 5.1 MMOL/L Chloride 101 98 - 110 MMOL/L CO2 29 21 - 30 MMOL/L Anion Gap 6 3 - 12 Glucose 269 (H) 70 - 100 MG/DL Blood Urea Nitrogen 18 7 - 25 MG/DL Creatinine 0.61 0.4 - 1.00 MG/DL Calcium 8.2 (L) [...] Pharmacist for questions. Specimen Performing Laboratory Blood [facility] [address] [place] [address] * CBC (01/11/2018 3:40 AM) Component Value Ref Range White Blood Cells 10.3 4.5 - 11.0 K/UL RBC 2.62 (L) 4.0 - 5.0 M/UL Hemoglobin 7.8 (L) 12.0 - 15.0 GM/DL Hematocrit 22.5 (L) 36 - 45 % MCV 85.8 80 - 100 FL MCH 29.6 26 - 34 PG MCHC 34.5 32.0 - 36.0 G/DL RDW 15.8 (H) 11 - 15 % Platelet Count 660 (H) 150 - 400 K/UL MPV 6.9 (L) 7 - 11 FL Specimen Performing Laboratory Blood [facility] [address] [place] [address] * POC GLUCOSE (01/11/2018 3:33 AM) Component Value Ref Range Glucose, POC 199 (H) 70 - 100 MG/DL Specimen Performing Laboratory [facility] [address] [place] [address] * POC GLUCOSE (01/10/2018 8:45 PM) Component Value Ref Range Glucose, POC 297 (H) 70 - 100 MG/DL Specimen Performing Laboratory [facility] [address] [place] [address] * POC GLUCOSE (01/10/2018 6:05 PM) Component Value Ref Range Glucose, POC 290 (H) 70 - 100 MG/DL Specimen Performing Laboratory [facility] [address] [place] [address] * POC GLUCOSE (01/10/2018 1:53 PM) Component Value Ref Range Glucose, POC 140 (H) 70 - 100 MG/DL Specimen Performing Laboratory [facility] [address] [place] [phone] * POC GLUCOSE (01/10/2018 10:49 AM) Component Value Ref Range Glucose, POC 87 70 - 100 MG/DL Specimen Performing Laboratory [facility] [address] [place] [address] * FLUORO MOBILE IN OR (01/10/2018 9:51 AM) Specimen Performing Laboratory [facility] This order has been auto finalized and does not contain a result. * POC GLUCOSE (01/10/2018 8:43 AM) Component Value Ref Range Glucose, POC 100 70 - 100 MG/DL Specimen Performing Laboratory [facility] [address] [place] [address] * POC GLUCOSE (01/10/2018 8:02 AM) Component Value Ref Range Glucose, POC 101 (H) 70 - 100 MG/DL Specimen Performing Laboratory [address] [address] * POC GLUCOSE (01/10/2018 3:39 AM) Component Value Ref Range Glucose, POC 131 (H) 70 - 100 MG/DL Specimen Performing Laboratory [facility] [address] [place] [address] 22165 * TRIGLYCERIDE (01/10/2018 3:30 AM) Component Value Ref Range Triglycerides 195 (H) <150 MG/DL Specimen Performing Laboratory Blood [facility] [address] [place] [address] 59097 * BASIC METABOLIC PANEL (01/10/2018 3:30 AM) Component Value Ref Range Sodium 135 (L) 137 - 147 MMOL/L Potassium 4.1 3.5 - 5.1 MMOL/L Chloride 99 98 - 110 MMOL/L CO2 29 21 - 30 MMOL/L Anion Gap 7 3 - 12 Glucose 137 (H) 70 - 100 MG/DL Blood Urea Nitrogen 16 7 - 25 MG/DL Creatinine 0.60 0.4 - 1.00 MG/DL Calcium 8.2 (L) [...] Specimen Performing Laboratory Blood MAIN LAB [address] [place] [address] * CBC AND DIFF (01/10/2018 3:30 AM) Component Value Ref Range White Blood Cells 9.2 4.5 - 11.0 K/UL RBC 2.82 (L) 4.0 - 5.0 M/UL Hemoglobin 8.3 (L) 12.0 - 15.0 GM/DL Hematocrit 24.2 (L) 36 - 45 % MCV 86.0 80 - 100 FL MCH 29.3 26 - 34 PG MCHC 34.0 32.0 - 36.0 G/DL RDW 15.8 (H) 11 - 15 % Platelet Count 711 (H) 150 - 400 K/UL MPV 6.2 (L) 7 - 11 FL Neutrophils 64 41 - 77 % Lymphocytes 15 (L) 24 - 44 % Monocytes 12 4 - 12 % Eosinophils 9 (H) 0 - 5 % Basophils 0 0 - 2 % Absolute Neutrophil Count 5.80 1.8 - 7.0 K/UL Absolute Lymph Count 1.40 1.0 - 4.8 K/UL Absolute Monocyte Count 1.10 (H) 0 - 0.80 K/UL Absolute Eosinophil Count 0.80 (H) 0 - 0.45 K/UL Absolute Basophil Count 0.00 0 - 0.20 K/UL Specimen Performing Laboratory Blood MAIN LAB [address] [place] [address] * POC GLUCOSE (01/09/2018 8:37 PM) Component Value Ref Range Glucose, POC 150 (H) 70 - 100 MG/DL Specimen Performing Laboratory MAIN LAB [address] [place], [place] [id number] * POC GLUCOSE (01/09/2018 7:37 PM) Component Value Ref Range Glucose, POC 135 (H) 70 - 100 MG/DL Specimen Performing Laboratory [facility] [address] [place], [place] [id number] * POC GLUCOSE (01/09/2018 6:20 PM) Component Value Ref Range Glucose, POC 135 (H) 70 - 100 MG/DL Specimen Performing Laboratory [facility] [address] [place] [address] * FREE T4 (FREE THYROXINE) ONLY (01/09/2018 1:40 PM) Component Value Ref Range T4-Free 0.9 0.6 - 1.6 NG/DL Specimen Performing Laboratory Blood [facility] [address] [place] [address] * THYROID STIMULATING HORMONE-TSH (01/09/2018 1:40 PM) Component Value Ref Range TSH 16.790 (H) 0.35 - 5.00 MCU/ML Specimen Performing Laboratory Blood [facility] [address] [place] [address] * POC GLUCOSE (01/09/2018 1:25 PM) Component Value Ref Range Glucose, POC 102 (H) 70 - 100 MG/DL Specimen Performing Laboratory [facility] [address] [place], [place] [id number] * POC GLUCOSE (01/09/2018 8:12 AM) Component Value Ref Range Glucose, POC 150 (H) 70 - 100 MG/DL Specimen Performing Laboratory [facility] [address] [place] [address] * BASIC METABOLIC PANEL (01/09/2018 3:17 AM) Component Value Ref Range Sodium 135 (L) 137 - 147 MMOL/L Potassium 4.1 3.5 - 5.1 MMOL/L Chloride 99 98 - 110 MMOL/L CO2 29 21 - 30 MMOL/L Anion Gap 7 3 - 12 Glucose 179 (H) 70 - 100 MG/DL Blood Urea Nitrogen 16 7 - 25 MG/DL Creatinine 0.63 0.4 - 1.00 MG/DL Calcium 8.1 (L) 8.5 - 10.6 MG/DL eGFR Non [...] questions. Specimen Performing Laboratory Blood MAIN [facility] [address] [place] [address] * CBC AND DIFF (01/09/2018 3:17 AM) Component Value Ref Range White Blood Cells 9.0 4.5 - 11.0 K/UL RBC 2.82 (L) 4.0 - 5.0 M/UL Hemoglobin 8.4 (L) 12.0 - 15.0 GM/DL Hematocrit 24.2 (L) 36 - 45 % MCV 86.0 80 - 100 FL MCH 29.7 26 - 34 PG MCHC 34.6 32.0 - 36.0 G/DL RDW 15.4 (H) 11 - 15 % Platelet Count 626 (H) 150 - 400 K/UL MPV 6.8 (L) 7 - 11 FL Neutrophils 59 41 - 77 % Lymphocytes 19 (L) 24 - 44 % Monocytes 12 4 - 12 % Eosinophils 9 (H) 0 - 5 % Basophils 1 0 - 2 % Absolute Neutrophil Count 5.30 1.8 - 7.0 K/UL Absolute Lymph Count 1.70 1.0 - 4.8 K/UL Absolute Monocyte Count 1.10 (H) 0 - 0.80 K/UL Absolute Eosinophil Count 0.80 (H) 0 - 0.45 K/UL Absolute Basophil Count 0.10 0 - 0.20 K/UL Specimen Performing Laboratory Blood MAIN LAB [address] [place] [address] 9[address] * POC GLUCOSE (01/09/2018 3:14 AM) Component Value Ref Range Glucose, POC 154 (H) 70 - 100 MG/DL Specimen Performing Laboratory MAIN LAB [address] [place] [address] * POC GLUCOSE (01/08/2018 9:01 PM) Component Value Ref Range Glucose, POC 240 (H) 70 - 100 MG/DL Specimen Performing Laboratory MAIN LAB [address] [place] [address] 0[address] * POC GLUCOSE (01/08/2018 6:20 PM) Component Value Ref Range Glucose, POC 123 (H) 70 - 100 MG/DL Specimen Performing Laboratory MAIN LAB [address] [place] [address] 485[address] * POC GLUCOSE (01/08/2018 12:47 PM) Component Value Ref Range Glucose, POC 214 (H) 70 - 100 MG/DL Specimen Performing Laboratory MAIN LAB [address] [place] [address] * POC GLUCOSE (01/08/2018 7:49 AM) Component Value Ref Range Glucose, POC 113 (H) 70 - 100 MG/DL Specimen Performing Laboratory MAIN LAB [address] [place] [address] 79351 * BASIC METABOLIC PANEL (01/08/2018 3:22 AM) Component Value Ref Range Sodium 137 137 - 147 MMOL/L Potassium 4.1 3.5 - 5.1 MMOL/L Chloride 101 98 - 110 MMOL/L CO2 28 21 - 30 MMOL/L Anion Gap 8 3 - 12 Glucose 149 (H) 70 - 100 MG/DL Blood Urea Nitrogen 17 7 - 25 MG/DL Creatinine 0.61 0.4 - 1.00 MG/DL Calcium 8.5 8.5 [...] Pharmacist for questions. Specimen Performing Laboratory Blood [facility] [address] [place] [address] * CBC AND DIFF (01/08/2018 3:22 AM) Component Value Ref Range White Blood Cells 9.2 4.5 - 11.0 K/UL RBC 2.93 (L) 4.0 - 5.0 M/UL Hemoglobin 8.5 (L) 12.0 - 15.0 GM/DL Hematocrit 25.6 (L) 36 - 45 % MCV 87.3 80 - 100 FL MCH 28.9 26 - 34 PG MCHC 33.1 32.0 - 36.0 G/DL RDW 16.0 (H) 11 - 15 % Platelet Count 619 (H) 150 - 400 K/UL MPV 6.4 (L) 7 - 11 FL Neutrophils 61 41 - 77 % Lymphocytes 18 (L) 24 - 44 % Monocytes 11 4 - 12 % Eosinophils 10 (H) 0 - 5 % Basophils 0 0 - 2 % Absolute Neutrophil Count 5.60 1.8 - 7.0 K/UL Absolute Lymph Count 1.70 1.0 - 4.8 K/UL Absolute Monocyte Count 1.00 (H) 0 - 0.80 K/UL Absolute Eosinophil Count 0.90 (H) 0 - 0.45 K/UL Absolute Basophil Count 0.00 0 - 0.20 K/UL Specimen Performing Laboratory Blood [facility] [address] [place] [address] * POC GLUCOSE (01/08/2018 3:17 AM) Component Value Ref Range Glucose, POC 108 (H) 70 - 100 MG/DL Specimen Performing Laboratory [place] [id number] * POC GLUCOSE (01/07/2018 8:35 PM) Component Value Ref Range Glucose, POC 149 (H) 70 - 100 MG/DL Specimen Performing Laboratory [facility] [address] [place], [place] [id number] * POC GLUCOSE (01/07/2018 6:38 PM) Component Value Ref Range Glucose, POC 85 70 - 100 MG/DL Specimen Performing Laboratory [place] [id number] * POC GLUCOSE (01/07/2018 1:40 PM) Component Value Ref Range Glucose, POC 83 70 - 100 MG/DL Specimen Performing Laboratory [place] [id number] * POC GLUCOSE (01/07/2018 8:05 AM) Component Value Ref Range Glucose, POC 131 (H) 70 - 100 MG/DL Specimen Performing Laboratory [address] [address] * POC GLUCOSE (01/07/2018 3:04 AM) Component Value Ref Range Glucose, POC 173 (H) 70 - 100 MG/DL [place] [address] * LIVER FUNCTION PANEL (01/07/2018 3:02 AM) Component Value Ref Range Total Bilirubin 0.2 (L) 0.3 - 1.2 MG/DL Bilirubin, Direct <0.1 <0.4 MG/DL Albumin 2.2 (L) 3.5 - 5.0 G/DL Alk Phosphatase 100 25 - 110 U/L AST (SGOT) 21 7 - 40 U/L ALT (SGPT) 19 7 - 56 U/L Total Protein 5.6 (L) 6.0 - 8.0 G/DL Specimen Performing Laboratory Blood MAIN LAB [address] [place] [address] * BASIC METABOLIC PANEL (01/07/2018 3:02 AM) Component Value Ref Range Sodium 137 137 - 147 MMOL/L Potassium 4.3 3.5 - 5.1 MMOL/L Chloride 101 98 - 110 MMOL/L CO2 30 21 - 30 MMOL/L Anion Gap 6 3 - 12 Glucose 186 (H) 70 - 100 MG/DL Blood Urea Nitrogen 15 7 - 25 MG/DL Creatinine 0.65 0.4 - 1.00 MG/DL Calcium 8.2 (L) [...] Specimen Performing Laboratory Blood MAIN [facility] [address] [place] [address] * CBC AND DIFF (01/07/2018 3:02 AM) Component Value Ref Range White Blood Cells 8.2 4.5 - 11.0 K/UL RBC 2.81 (L) 4.0 - 5.0 M/UL Hemoglobin 8.1 (L) 12.0 - 15.0 GM/DL Hematocrit 24.6 (L) 36 - 45 % MCV 87.4 80 - 100 FL MCH 29.0 26 - 34 PG MCHC 33.2 32.0 - 36.0 G/DL RDW 16.0 (H) 11 - 15 % Platelet Count 585 (H) 150 - 400 K/UL MPV 6.6 (L) 7 - 11 FL Neutrophils 57 41 - 77 % Lymphocytes 19 (L) 24 - 44 % Monocytes 12 4 - 12 % Eosinophils 11 (H) 0 - 5 % Basophils 1 0 - 2 % Absolute Neutrophil Count 4.70 1.8 - 7.0 K/UL Absolute Lymph Count 1.60 1.0 - 4.8 K/UL Absolute Monocyte Count 1.00 (H) 0 - 0.80 K/UL Absolute Eosinophil Count 0.90 (H) 0 - 0.45 K/UL Absolute Basophil Count 0.10 0 - 0.20 K/UL Specimen Performing Laboratory Blood [facility] [address] [place] [address] * POC GLUCOSE (01/06/2018 9:49 PM) Component Value Ref Range Glucose, POC 204 (H) 70 - 100 MG/DL Specimen Performing Laboratory MAIN LAB [address] [place] [address] * POC GLUCOSE (01/06/2018 5:24 PM) Component Value Ref Range Glucose, POC 223 (H) 70 - 100 MG/DL Specimen Performing Laboratory MAIN [facility] [address] [place] [address] 99081 * POC GLUCOSE (01/06/2018 1:11 PM) Component Value Ref Range Glucose, POC 99 70 - 100 MG/DL Specimen Performing Laboratory [facility] [address] [place] [address] * CT ABD/PELV WO CONTRAST (01/06/2018 11:43 [...] uterus. The urinary bladder is decompressed by Melchor catheter with a small amount of nondependent [...] uterus. The urinary bladder is decompressed by Melchor catheter with a small amount of nondependent [...] Bentley M.D. on 01/06/2018 1:36 PM. * POC GLUCOSE (01/06/2018 7:58 AM) Component Value Ref Range Glucose, POC 136 (H) 70 - 100 MG/DL Specimen Performing Laboratory MAIN [facility] [address] [place] [address] * POC GLUCOSE (01/06/2018 2:58 AM) Component Value Ref Range Glucose, POC 194 (H) 70 - 100 MG/DL Specimen Performing Laboratory MAIN LAB [address] [place] [id number] * BASIC METABOLIC PANEL (01/06/2018 2:52 AM) Component Value Ref Range Sodium 135 (L) 137 - 147 MMOL/L Potassium 4.2 3.5 - 5.1 MMOL/L Chloride 99 98 - 110 MMOL/L CO2 30 21 - 30 MMOL/L Anion Gap 6 3 - 12 Glucose 192 (H) 70 - 100 MG/DL Blood Urea Nitrogen 11 7 - 25 MG/DL Creatinine 0.68 0.4 - 1.00 MG/DL Calcium 8.2 (L) [...] Specimen Performing Laboratory Blood MAIN [facility] [address] [place] [id number] * CBC AND DIFF (01/06/2018 2:52 AM) Component Value Ref Range White Blood Cells 8.8 4.5 - 11.0 K/UL RBC 2.73 (L) 4.0 - 5.0 M/UL Hemoglobin 8.0 (L) 12.0 - 15.0 GM/DL Hematocrit 24.2 (L) 36 - 45 % MCV 88.8 80 - 100 FL MCH 29.3 26 - 34 PG MCHC 33.0 32.0 - 36.0 G/DL RDW 15.3 (H) 11 - 15 % Platelet Count 545 (H) 150 - 400 K/UL MPV 6.6 (L) 7 - 11 FL Neutrophils 64 41 - 77 % Lymphocytes 17 (L) 24 - 44 % Monocytes 10 4 - 12 % Eosinophils 9 (H) 0 - 5 % Basophils 0 0 - 2 % Absolute Neutrophil Count 5.70 1.8 - 7.0 K/UL Absolute Lymph Count 1.50 1.0 - 4.8 K/UL Absolute Monocyte Count 0.90 (H) 0 - 0.80 K/UL Absolute Eosinophil Count 0.80 (H) 0 - 0.45 K/UL Absolute Basophil Count 0.00 0 - 0.20 K/UL Specimen Performing Laboratory Blood [facility] [address] [place] [address] 66372 * TRIGLYCERIDE (01/06/2018 2:52 AM) Component Value Ref Range Triglycerides 243 (H) <150 MG/DL Specimen Performing Laboratory Blood [facility] [address] [place], [place] [id number] * POC GLUCOSE (01/05/2018 9:38 PM) Component Value Ref Range Glucose, POC 276 (H) 70 - 100 MG/DL Specimen Performing Laboratory [facility] [address] [place] [address] 12557 * POC GLUCOSE (01/05/2018 5:33 PM) Component Value Ref Range Glucose, POC 248 (H) 70 - 100 MG/DL Specimen Performing Laboratory [facility] [address] [place], [place] [id number] * POC GLUCOSE (01/05/2018 12:22 PM) Component Value Ref Range Glucose, POC 194 (H) 70 - 100 MG/DL Specimen Performing Laboratory [facility] [address] [place] [address] 17547 * POC GLUCOSE (01/05/2018 7:52 AM) Component Value Ref Range Glucose, POC 265 (H) 70 - 100 MG/DL Specimen Performing Laboratory [facility] [address] [place] [address] * BASIC METABOLIC PANEL (01/05/2018 3:04 AM) Component Value Ref Range Sodium 133 (L) 137 - 147 MMOL/L Potassium 4.1 3.5 - 5.1 MMOL/L Chloride 98 98 - 110 MMOL/L CO2 30 21 - 30 MMOL/L Anion Gap 5 3 - 12 Glucose 291 (H) 70 - 100 MG/DL Blood Urea Nitrogen 13 7 - 25 MG/DL Creatinine 0.65 0.4 - 1.00 MG/DL Calcium 8.3 (L) [...] questions. Specimen Performing Laboratory Blood MAIN LAB [address] [place] [address]61 * CBC AND DIFF (01/05/2018 3:04 AM) Component Value Ref Range White Blood Cells 9.7 4.5 - 11.0 K/UL RBC 2.76 (L) 4.0 - 5.0 M/UL Hemoglobin 8.4 (L) 12.0 - 15.0 GM/DL Hematocrit 24.3 (L) 36 - 45 % MCV 88.1 80 - 100 FL MCH 30.3 26 - 34 PG MCHC 34.3 32.0 - 36.0 G/DL RDW 15.7 (H) 11 - 15 % Platelet Count 527 (H) 150 - 400 K/UL MPV 6.6 (L) 7 - 11 FL Neutrophils 71 41 - 77 % Lymphocytes 14 (L) 24 - 44 % Monocytes 7 4 - 12 % Eosinophils 7 (H) 0 - 5 % Basophils 1 0 - 2 % Absolute Neutrophil Count 6.90 1.8 - 7.0 K/UL Absolute Lymph Count 1.40 1.0 - 4.8 K/UL Absolute Monocyte Count 0.70 0 - 0.80 K/UL Absolute Eosinophil Count 0.70 (H) 0 - 0.45 K/UL Absolute Basophil Count 0.00 0 - 0.20 K/UL Specimen Performing Laboratory Blood [facility] [address] [place] [address] 33623 * POC GLUCOSE (01/05/2018 2:44 AM) Component Value Ref Range Glucose, POC 279 (H) 70 - 100 MG/DL Specimen Performing Laboratory MAIN LAB [address] [place] [address] 57558 * POC GLUCOSE (01/04/2018 8:58 PM) Component Value Ref Range Glucose, POC 325 (H) 70 - 100 MG/DL Specimen Performing Laboratory [facility] [address] [place] [address] 12581 * POC GLUCOSE (01/04/2018 3:22 PM) Component Value Ref Range Glucose, POC 278 (H) 70 - 100 MG/DL Specimen Performing Laboratory MAIN LAB [address] [place] [address] 73510 * ALBUMIN (01/04/2018 11:55 AM) Component Value Ref Range Albumin 2.2 (L) 3.5 - 5.0 G/DL Specimen Performing Laboratory Blood MAIN [facility] [address] [place] [address] * PREALBUMIN (01/04/2018 11:55 AM) Component Value Ref Range Prealbumin 18.0 17 - 34 MG/DL Specimen Performing Laboratory Blood MAIN [facility] [address] [place] [address] 90[address] * POC GLUCOSE (01/04/2018 7:50 AM) Component Value Ref Range Glucose, POC 233 (H) 70 - 100 MG/DL Specimen Performing Laboratory MAIN [facility] [address] [place] [address] 04216 * BASIC METABOLIC PANEL (01/04/2018 2:45 AM) Component Value Ref Range Sodium 131 (L) 137 - 147 MMOL/L Potassium 4.3 3.5 - 5.1 MMOL/L Chloride 97 (L) 98 - 110 MMOL/L CO2 29 21 - 30 MMOL/L Anion Gap 5 3 - 12 Glucose 234 (H) 70 - 100 MG/DL Blood Urea Nitrogen 13 7 - 25 MG/DL Creatinine 0.64 0.4 - 1.00 MG/DL Calcium 8.3 (L) [...] questions. Specimen Performing Laboratory Blood MAIN [facility] [address] [place] [address] 97329 * CBC (01/04/2018 2:45 AM) Component Value Ref Range White Blood Cells 10.3 4.5 - 11.0 K/UL RBC 2.83 (L) 4.0 - 5.0 M/UL Hemoglobin 8.6 (L) 12.0 - 15.0 GM/DL Hematocrit 24.9 (L) 36 - 45 % MCV 87.9 80 - 100 FL MCH 30.2 26 - 34 PG MCHC 34.4 32.0 - 36.0 G/DL RDW 15.4 (H) 11 - 15 % Platelet Count 531 (H) 150 - 400 K/UL MPV 6.2 (L) 7 - 11 FL Specimen Performing Laboratory Blood [facility] [address] [place] [address] 15246 * POC GLUCOSE (01/04/2018 2:39 AM) Component Value Ref Range Glucose, POC 208 (H) 70 - 100 MG/DL Specimen Performing Laboratory [facility] [address] [place] [address] 16723 * POC GLUCOSE (01/03/2018 8:21 PM) Component Value Ref Range Glucose, POC 255 (H) 70 - 100 MG/DL Specimen Performing Laboratory [facility] [address] [place] [address] 04839 * POC GLUCOSE (01/03/2018 4:53 PM) Component Value Ref Range Glucose, POC 221 (H) 70 - 100 MG/DL Specimen Performing Laboratory [facility] [address] [place] [address] 22170 * POC GLUCOSE (01/03/2018 2:44 PM) Component Value Ref Range Glucose, POC 168 (H) 70 - 100 MG/DL Specimen Performing Laboratory [facility] [address] [place] [address] 23842 * POC GLUCOSE (01/03/2018 7:51 AM) Component Value Ref Range Glucose, POC 119 (H) 70 - 100 MG/DL Specimen Performing Laboratory [facility] [address] [place], [place] [phone] * TRIGLYCERIDE (01/03/2018 5:10 AM) Component Value Ref Range Triglycerides 263 (H) <150 MG/DL Specimen Performing Laboratory Blood [facility] [address] [place], [place] [phone] * BASIC METABOLIC PANEL (01/03/2018 5:10 AM) Component Value Ref Range Sodium 131 (L) 137 - 147 MMOL/L Potassium 4.3 3.5 - 5.1 MMOL/L Chloride 98 98 - 110 MMOL/L CO2 28 21 - 30 MMOL/L Anion Gap 5 3 - 12 Glucose 180 (H) 70 - 100 MG/DL Blood Urea Nitrogen 15 7 - 25 MG/DL Creatinine 0.64 0.4 - 1.00 MG/DL Calcium 8.7 8.5 [...] Pharmacist for questions. Specimen Performing Laboratory Blood [facility] [address] [place] [address] 61725 * CBC (01/03/2018 5:10 AM) Component Value Ref Range White Blood Cells 11.8 (H) 4.5 - 11.0 K/UL RBC 2.85 (L) 4.0 - 5.0 M/UL Hemoglobin 8.5 (L) 12.0 - 15.0 GM/DL Hematocrit 25.0 (L) 36 - 45 % MCV 87.8 80 - 100 FL MCH 29.8 26 - 34 PG MCHC 34.0 32.0 - 36.0 G/DL RDW 15.5 (H) 11 - 15 % Platelet Count 524 (H) 150 - 400 K/UL MPV 6.6 (L) 7 - 11 FL Specimen Performing Laboratory Blood [facility] [address] [place], [place] [id number] * MAGNESIUM (01/03/2018 5:10 AM) Component Value Ref Range Magnesium 1.8 1.6 - 2.6 mg/dL Specimen Performing Laboratory Blood [facility] [address] [place], [place] [id number] * PHOSPHORUS (01/03/2018 5:10 AM) Component Value Ref Range Phosphorus 2.2 2.0 - 4.0 MG/DL Specimen Performing Laboratory Blood [facility] [address] [place] [address]15 * POC GLUCOSE (01/03/2018 2:00 AM) Component Value Ref Range Glucose, POC 236 (H) 70 - 100 MG/DL Specimen Performing Laboratory [facility] [address] [place] [address] 65594 * POC GLUCOSE (01/02/2018 10:44 PM) Component Value Ref Range Glucose, POC 302 (H) 70 - 100 MG/DL Specimen Performing Laboratory [facility] [address] [place] [address] 48020 * POC GLUCOSE (01/02/2018 8:28 PM) Component Value Ref Range Glucose, POC 317 (H) 70 - 100 MG/DL Specimen Performing Laboratory [facility] [address] [place] [address] * ECG-SCAN (01/02/2018 7:45 PM) Narrative Ordered by an unspecified provider. * POC GLUCOSE (01/02/2018 5:35 PM) Component Value Ref Range Glucose, POC 242 (H) 70 - 100 MG/DL Specimen Performing Laboratory MAIN [facility] [address] [place] [address] * POC GLUCOSE (01/02/2018 12:30 PM) Component Value Ref Range Glucose, POC 315 (H) 70 - 100 MG/DL Specimen Performing Laboratory MAIN [facility] [address] [place] [address] * THYROID STIMULATING HORMONE-TSH (01/02/2018 9:45 AM) Component Value Ref Range TSH 12.590 (H) 0.35 - 5.00 MCU/ML Specimen Performing Laboratory Blood [facility]IN [facility] [address] [place] [address] * CREATININE-URINE RANDOM (01/02/2018 9:45 AM) Component Value Ref Range Creatinine, Random 20 MG/DL Specimen Performing Laboratory Urine MAIN LAB [address] [place] [address] * SODIUM-URINE RANDOM (01/02/2018 9:45 AM) Component Value Ref Range Sodium, Random 15 MMOL/L Specimen Performing Laboratory Urine MAIN LAB [address] [place] [address] * POC GLUCOSE (01/02/2018 7:49 AM) Component Value Ref Range Glucose, POC 280 (H) 70 - 100 MG/DL Specimen Performing Laboratory MAIN LAB [address] [place] [address] * BASIC METABOLIC PANEL (01/02/2018 3:25 AM) Component Value Ref Range Sodium 129 (L) 137 - 147 MMOL/L Potassium 4.0 3.5 - 5.1 MMOL/L Chloride 97 (L) 98 - 110 MMOL/L CO2 28 21 - 30 MMOL/L Anion Gap 4 3 - 12 Glucose 269 (H) 70 - 100 MG/DL Blood Urea Nitrogen 17 7 - 25 MG/DL Creatinine 0.65 0.4 - 1.00 MG/DL Calcium 8.7 8.5 [...] questions. Specimen Performing Laboratory Blood MAIN LAB [address] [place] [address] * CBC (01/02/2018 3:25 AM) Component Value Ref Range White Blood Cells 13.1 (H) 4.5 - 11.0 K/UL RBC 2.78 (L) 4.0 - 5.0 M/UL Hemoglobin 8.6 (L) 12.0 - 15.0 GM/DL Hematocrit 24.7 (L) 36 - 45 % MCV 88.7 80 - 100 FL MCH 30.8 26 - 34 PG MCHC 34.7 32.0 - 36.0 G/DL RDW 15.8 (H) 11 - 15 % Platelet Count 503 (H) 150 - 400 K/UL MPV 6.1 (L) 7 - 11 FL Specimen Performing Laboratory Blood [facility] [address] [place], [place] [id number] * MAGNESIUM (01/02/2018 3:25 AM) Component Value Ref Range Magnesium 1.9 1.6 - 2.6 mg/dL Specimen Performing Laboratory Blood [facility] [address] [place], [place] [id number] * PHOSPHORUS (01/02/2018 3:25 AM) Component Value Ref Range Phosphorus 1.7 (L) 2.0 - 4.0 MG/DL Specimen Performing Laboratory Blood [facility] [address] [place], [place] [phone] * POC GLUCOSE (01/02/2018 2:11 AM) Component Value Ref Range Glucose, POC 288 (H) 70 - 100 MG/DL Specimen Performing Laboratory [facility] [address] [place], [place] [phone] * POC GLUCOSE (01/01/2018 9:15 PM) Component Value Ref Range Glucose, POC 289 (H) 70 - 100 MG/DL Specimen Performing Laboratory [facility] [address] [place], [place] [phone] * POC GLUCOSE (01/01/2018 5:48 PM) Component Value Ref Range Glucose, POC 284 (H) 70 - 100 MG/DL Specimen Performing Laboratory [facility] [address] [place] [address], [place] [address] * POC GLUCOSE (01/01/2018 4:12 PM) Component Value Ref Range Glucose, POC 354 (H) 70 - 100 MG/DL Specimen Performing Laboratory MAIN LAB [address] [place] [address] * POC GLUCOSE (01/01/2018 1:36 PM) Component Value Ref Range Glucose, POC 386 (H) 70 - 100 MG/DL Specimen Performing Laboratory MAIN [facility] [address] [place] [address]13 * POC GLUCOSE (01/01/2018 8:54 AM) Component Value Ref Range Glucose, POC 363 (H) 70 - 100 MG/DL Specimen Performing Laboratory MAIN [facility] [address] [place] [address] 75280 * BASIC METABOLIC PANEL (01/01/2018 5:15 AM) Component Value Ref Range Sodium 131 (L) 137 - 147 MMOL/L Potassium 4.2 3.5 - 5.1 MMOL/L Chloride 98 98 - 110 MMOL/L CO2 27 21 - 30 MMOL/L Anion Gap 6 3 - 12 Glucose 347 (H) 70 - 100 MG/DL Blood Urea Nitrogen 17 7 - 25 MG/DL Creatinine 0.78 0.4 - 1.00 MG/DL Calcium 8.7 8.5 [...] Specimen Performing Laboratory Blood MAIN [facility] [address] [place] [address] * CBC (01/01/2018 5:15 AM) Component Value Ref Range White Blood Cells 15.6 (H) 4.5 - 11.0 K/UL RBC 3.00 (L) 4.0 - 5.0 M/UL Hemoglobin 8.9 (L) 12.0 - 15.0 GM/DL Hematocrit 26.7 (L) 36 - 45 % MCV 88.9 80 - 100 FL MCH 29.7 26 - 34 PG MCHC 33.4 32.0 - 36.0 G/DL RDW 15.3 (H) 11 - 15 % Platelet Count 552 (H) 150 - 400 K/UL MPV 6.2 (L) 7 - 11 FL Specimen Performing Laboratory Blood [facility] [address] [place], [place] [id number] * MAGNESIUM (01/01/2018 5:15 AM) Component Value Ref Range Magnesium 2.0 1.6 - 2.6 mg/dL Specimen Performing Laboratory Blood [facility] [address] [place] [address] * PHOSPHORUS (01/01/2018 5:15 AM) Component Value Ref Range Phosphorus 2.9 2.0 - 4.0 MG/DL Specimen Performing Laboratory Blood [facility] [address] [place] [address] * POC GLUCOSE (01/01/2018 2:17 AM) Component Value Ref Range Glucose, POC 330 (H) 70 - 100 MG/DL [place] [address] * TRANSFUSE RBC'S NON-BLEEDING PT (01/01/2018 2:11 AM) Specimen Performing Laboratory Blood * TRANSFUSE RBC'S NON-BLEEDING PT (01/01/2018 2:11 AM) Specimen Performing Laboratory Blood * POC GLUCOSE (12/31/2017 11:44 PM) Component Value Ref Range Glucose, POC 326 (H) 70 - 100 MG/DL Specimen Performing Laboratory [facility] [address] [place] [address] * POC GLUCOSE (12/31/2017 8:58 PM) Component Value Ref Range Glucose, POC 283 (H) 70 - 100 MG/DL Specimen Performing Laboratory [facility] [address] [place] [address] * TRANSFUSE RBC'S NON-BLEEDING PT (12/31/2017 6:22 PM) Specimen Performing Laboratory Blood * TRANSFUSE RBC'S NON-BLEEDING PT (12/31/2017 6:22 PM) Specimen Performing Laboratory Blood * POC GLUCOSE (12/31/2017 5:32 PM) Component Value Ref Range Glucose, POC 274 (H) 70 - 100 MG/DL Specimen Performing Laboratory [facility] [address] [place] [address] * TROPONIN-I (12/31/2017 4:57 PM) Component Value Ref Range Troponin-I 0.01 0.0 - 0.05 NG/ML Specimen Performing Laboratory Blood MAIN LAB [address] [place] [address] * POC GLUCOSE (12/31/2017 1:59 PM) Component Value Ref Range Glucose, POC 299 (H) 70 - 100 MG/DL Specimen Performing Laboratory MAIN LAB [address] [place] [address] * TRANSFUSE RBC'S BLEEDING PT OR EXCHANGE TRANSFUSION (12/31/2017 1:15 PM) Specimen Performing Laboratory Blood * TRANSFUSE RBC'S BLEEDING PT OR EXCHANGE TRANSFUSION (12/31/2017 1:15 PM) Specimen Performing Laboratory Blood * POC GLUCOSE (12/31/2017 11:56 AM) Component Value Ref Range Glucose, POC 268 (H) 70 - 100 MG/DL Specimen Performing Laboratory MAIN LAB [address] [place], [place] [id number] * BASIC METABOLIC PANEL (12/31/2017 10:10 AM) Component Value Ref Range Sodium 135 (L) 137 - 147 MMOL/L Potassium 3.9 3.5 - 5.1 MMOL/L Chloride 102 98 - 110 MMOL/L CO2 24 21 - 30 MMOL/L Anion Gap 9 3 - 12 Glucose 306 (H) 70 - 100 MG/DL Blood Urea Nitrogen 15 7 - 25 MG/DL Creatinine 0.78 0.4 - 1.00 MG/DL Calcium 8.0 (L) 8.5 - 10.6 MG/DL eGFR Non [...] Specimen Performing Laboratory Blood MAIN [facility] [address] [place] [address] * CBC (12/31/2017 10:10 AM) Component Value Ref Range White Blood Cells 13.3 (H) 4.5 - 11.0 K/UL RBC 2.20 (L) 4.0 - 5.0 M/UL Hemoglobin 6.6 (L) 12.0 - 15.0 GM/DL Hematocrit 19.4 (L) 36 - 45 % MCV 88.1 80 - 100 FL MCH 29.9 26 - 34 PG MCHC 34.0 32.0 - 36.0 G/DL RDW 15.6 (H) 11 - 15 % Platelet Count 548 (H) 150 - 400 K/UL MPV 6.1 (L) 7 - 11 FL Specimen Performing Laboratory Blood [facility]IN [facility] [address] [place] [address] * POC GLUCOSE (12/31/2017 8:49 AM) Component Value Ref Range Glucose, POC 351 (H) 70 - 100 MG/DL Specimen Performing Laboratory MAIN LAB [address] [place] [address] * POC GLUCOSE (12/31/2017 7:53 AM) Component Value Ref Range Glucose, POC 297 (H) 70 - 100 MG/DL Specimen Performing Laboratory MAIN LAB [address] [place] [address] * BASIC METABOLIC PANEL (12/31/2017 3:30 AM) Component Value Ref Range Sodium 134 (L) 137 - 147 MMOL/L Potassium 4.3 3.5 - 5.1 MMOL/L Chloride 100 98 - 110 MMOL/L CO2 25 21 - 30 MMOL/L Anion Gap 9 3 - 12 Glucose 255 (H) 70 - 100 MG/DL Blood Urea Nitrogen 15 7 - 25 MG/DL Creatinine 0.86 0.4 - 1.00 MG/DL Calcium 8.4 (L) [...] Clinical Pharmacist for questions. Specimen Performing Laboratory MAIN LAB [address] [place] [address] * MAGNESIUM (12/31/2017 3:30 AM) Component Value Ref Range Magnesium 2.0 1.6 - 2.6 mg/dL Specimen Performing Laboratory Blood [facility]IN [facility] [address] [place] [address] * PHOSPHORUS (12/31/2017 3:30 AM) Component Value Ref Range Phosphorus 4.1 (H) 2.0 - 4.0 MG/DL Specimen Performing Laboratory Blood [facility] [address] [place] [address] * POC GLUCOSE (12/31/2017 3:17 AM) Component Value Ref Range Glucose, POC 253 (H) 70 - 100 MG/DL Specimen Performing Laboratory [facility] [address] [place] [address] * POC GLUCOSE (12/31/2017 1:37 AM) Component Value Ref Range Glucose, POC 249 (H) 70 - 100 MG/DL Specimen Performing Laboratory [facility] [address] [place] [address] * POC GLUCOSE (12/30/2017 9:57 PM) Component Value Ref Range Glucose, POC 211 (H) 70 - 100 MG/DL Specimen Performing Laboratory [facility] [address] [place] [address] * POC GLUCOSE (12/30/2017 5:57 PM) Component Value Ref Range Glucose, POC 207 (H) 70 - 100 MG/DL Specimen Performing Laboratory [facility] [address] [place] [address] * POC GLUCOSE (12/30/2017 12:35 PM) Component Value Ref Range Glucose, POC 173 (H) 70 - 100 MG/DL Specimen Performing Laboratory [facility] [address] [place] [address] * SURGICAL PATHOLOGY (12/30/2017 11:56 AM) Component Value Ref Range PATHOLOGY REPORT [facility] [email or web address] Department of Pathology and Laboratory Medicine [address] [place] [address] Surgical Pathology Office:[phone]:[phone] SURGICAL PATHOLOGY REPORT NAME: BEATA KAISER SURG PATH #: [id number] MR #: [id number] SPECIMEN CLASS: [facility] BILLING #: [id number] ALT ID #:LOCATION: [id number] DATE OF PROCEDURE: [...] material indicated in this report. +++ +++ kurt/12/30/2017 ################################################## ###################### Material Received: A: staple line History: 52-year-old female with a history of pelvic mass. Gross Description: A. Received in formalin, labeled patient's name and "staple line" and regular, unoriented portion of soft tissue containing metallic ceci measuring 6.4 cm in length. The ceci are removed and the specimen is entirely submitted in cassettes [id number].([facility]) [facility]/12/30/2017 Specimen Performing Laboratory LAB RESULTS * POC GLUCOSE (12/30/2017 9:45 AM) Component Value Ref Range Glucose, POC 184 (H) 70 - 100 MG/DL Specimen Performing Laboratory MAIN LAB [address] [place] [address] * TYPE & CROSSMATCH (12/30/2017 8:50 AM) Component Value Ref Range Units Ordered 4 Crossmatch Expires 01/02/2018 Record Check FOUND ABO/RH(D) A POS Antibody Screen NEG Electronic Crossmatch YES Unit Number [id number] Blood Component Type RBC,ADSOL,LEUKO REDUCED Unit Division 0 Status OF Unit REL FROM ALLOC Transfusion Status OK TO TRANSFUSE Crossmatch Result COMPATIBLE,ELECTRONIC Unit Number [id number] Blood Component Type RBC,ADSOL,LEUKO REDUCED Unit Division 0 Status OF Unit REL FROM ALLOC Transfusion Status OK TO TRANSFUSE Crossmatch Result COMPATIBLE,ELECTRONIC Unit Number [id number] Blood Component Type RBC,ADSOL,LEUKO REDUCED Unit Division 0 Status OF Unit TRANSFUSED Transfusion Status OK TO TRANSFUSE Crossmatch Result COMPATIBLE,ELECTRONIC Unit Number [id number] Blood Component Type RBC,ADSOL,LEUKO REDUCED,2ND CONT. Unit Division 0 Status OF Unit TRANSFUSED Transfusion Status OK TO TRANSFUSE Crossmatch Result COMPATIBLE,ELECTRONIC Specimen Performing Laboratory Blood [facility]IN [facility] [address] [place] [address] * CBC AND DIFF (12/30/2017 8:35 AM) Component Value Ref Range White Blood Cells 17.0 (H) 4.5 - 11.0 K/UL RBC 2.83 (L) 4.0 - 5.0 M/UL Hemoglobin 8.3 (L) 12.0 - 15.0 GM/DL Hematocrit 24.5 (L) 36 - 45 % MCV 86.8 80 - 100 FL MCH 29.3 26 - 34 PG MCHC 33.8 32.0 - 36.0 G/DL RDW 15.2 (H) 11 - 15 % Platelet Count 539 (H) 150 - 400 K/UL MPV 6.5 (L) 7 - 11 FL Neutrophils 78 (H) 41 - 77 % Lymphocytes 12 (L) 24 - 44 % Monocytes 7 4 - 12 % Eosinophils 3 0 - 5 % Basophils 0 0 - 2 % Absolute Neutrophil Count 13.20 (H) 1.8 - 7.0 K/UL Absolute Lymph Count 2.00 1.0 - 4.8 K/UL Absolute Monocyte Count 1.30 (H) 0 - 0.80 K/UL Absolute Eosinophil Count 0.50 (H) 0 - 0.45 K/UL Absolute Basophil Count 0.10 0 - 0.20 K/UL Specimen Performing Laboratory Blood [facility] [address] [place] [address] * TRIGLYCERIDE (12/30/2017 4:58 AM) Component Value Ref Range Triglycerides 198 (H) <150 MG/DL Specimen Performing Laboratory Blood [facility] [address] [place] [address] * MAGNESIUM (12/30/2017 4:58 AM) Component Value Ref Range Magnesium 2.0 1.6 - 2.6 mg/dL Specimen Performing Laboratory Blood [facility]IN [facility] [address] [place] [address] * PHOSPHORUS (12/30/2017 4:58 AM) Component Value Ref Range Phosphorus 4.1 (H) 2.0 - 4.0 MG/DL Specimen Performing Laboratory Blood [facility]IN [facility] [address] [place] [address] * COMPREHENSIVE METABOLIC PANEL (12/30/2017 4:58 AM) Component Value Ref Range Sodium 132 (L) 137 - 147 MMOL/L Potassium 4.3 3.5 - 5.1 MMOL/L Chloride 98 98 - 110 MMOL/L Glucose 165 (H) 70 - 100 MG/DL Blood Urea Nitrogen 10 7 - 25 MG/DL Creatinine 0.85 0.4 - 1.00 MG/DL Calcium 8.6 8.5 - 10.6 MG/DL Total Protein 5.7 (L) 6.0 - 8.0 G/DL Total Bilirubin 0.3 0.3 - 1.2 MG/DL Albumin 2.2 (L) 3.5 - 5.0 G/DL Alk Phosphatase 127 (H) 25 - 110 U/L AST (SGOT) 47 (H) 7 - 40 U/L CO2 28 21 - 30 MMOL/L ALT (SGPT) 51 7 - 56 U/L Anion Gap 6 3 - 12 eGFR Non >60 >60 [...] Specimen Performing Laboratory Blood [facility] [address] [place] [address] * POC GLUCOSE (12/30/2017 3:57 AM) Component Value Ref Range Glucose, POC 160 (H) 70 - 100 MG/DL Specimen Performing Laboratory MAIN LAB [address] [place] [address] * POC GLUCOSE (12/29/2017 9:08 PM) Component Value Ref Range Glucose, POC 267 (H) 70 - 100 MG/DL Specimen Performing Laboratory MAIN LAB [address] [place] [address] * POC GLUCOSE (12/29/2017 6:40 PM) Component Value Ref Range Glucose, POC 373 (H) 70 - 100 MG/DL Specimen Performing Laboratory MAIN LAB [address] [place] [address] * POC GLUCOSE (12/29/2017 5:41 PM) Component Value Ref Range Glucose, POC 335 (H) 70 - 100 MG/DL Specimen Performing Laboratory MAIN LAB [address] [place] [address] * POC GLUCOSE (12/29/2017 11:56 AM) Component Value Ref Range Glucose, POC 281 (H) 70 - 100 MG/DL Specimen Performing Laboratory [facility]IN LAB [address] [place] [address] * POC GLUCOSE (12/29/2017 8:18 AM) Component Value Ref Range Glucose, POC 233 (H) 70 - 100 MG/DL Specimen Performing Laboratory MAIN LAB [address] [place] [address] * TYPE & SCREEN (NOT CROSSMATCH ELIGIBLE) (12/29/2017 4:51 AM) Component Value Ref Range ABO/RH(D) A POS Antibody Screen NEG Blood Component Type RED CELL GROUP Specimen Performing Laboratory Blood, venous - Blood [facility] [address] [place] [address] * BASIC METABOLIC PANEL (12/29/2017 4:51 AM) Component Value Ref Range Sodium 134 (L) 137 - 147 MMOL/L Potassium 4.5 3.5 - 5.1 MMOL/L Chloride 100 98 - 110 MMOL/L CO2 29 21 - 30 MMOL/L Anion Gap 5 3 - 12 Glucose 271 (H) 70 - 100 MG/DL Blood Urea Nitrogen 14 7 - 25 MG/DL Creatinine 0.85 0.4 - 1.00 MG/DL Calcium 8.4 (L) [...] questions. Specimen Performing Laboratory [facility] [address] [place] [address] * CBC AND DIFF (12/29/2017 4:51 AM) Component Value Ref Range White Blood Cells 16.4 (H) 4.5 - 11.0 K/UL RBC 2.58 (L) 4.0 - 5.0 M/UL Hemoglobin 7.7 (L) 12.0 - 15.0 GM/DL Hematocrit 22.8 (L) 36 - 45 % MCV 88.3 80 - 100 FL MCH 29.7 26 - 34 PG MCHC 33.7 32.0 - 36.0 G/DL RDW 14.9 11 - 15 % Platelet Count 434 (H) 150 - 400 K/UL MPV 6.4 (L) 7 - 11 FL Segmented Neutrophils 69 41 - 77 % Bands 10 0 - 10 % Lymphocytes 12 (L) 24 - 44 % Monocytes 5 4 - 12 % Eosinophil 2 0 - 5 % Metamyelocyte 1 % Myelocyte 1 % ANISO PRESENT POIK PRESENT POLY PRESENT Ovalocyte PRESENT Platelet Estimate SLT INC Absolute Neutrophil Count 12.96 (H) 1.8 - 7.0 K/UL Manual Specimen Performing Laboratory Blood [facility] [address] [place] [address] * POC GLUCOSE (12/29/2017 3:43 AM) Component Value Ref Range Glucose, POC 259 (H) 70 - 100 MG/DL Specimen Performing Laboratory [facility] [address] [place] [address] * POC GLUCOSE (12/28/2017 8:23 PM) Component Value Ref Range Glucose, POC 280 (H) 70 - 100 MG/DL Specimen Performing Laboratory [facility] [address] [place] [address] * POC GLUCOSE (12/28/2017 5:44 PM) Component Value Ref Range Glucose, POC 363 (H) 70 - 100 MG/DL Specimen Performing Laboratory [facility] [address] [place] [address] * OSMOLALITY-URINE RANDOM (12/28/2017 5:18 PM) Component Value Ref Range Osmolality-Urine 366 50 - 1,400 MOS/KG Specimen Performing Laboratory Urine [facility] [address] [place] [address] * SODIUM-URINE RANDOM (12/28/2017 5:18 PM) Component Value Ref Range Sodium, Random 28 MMOL/L Specimen Performing Laboratory Urine [facility] [address] [place] [address] * CULTURE-URINE W/SENSITIVITY (12/28/2017 5:18 PM) Component Value Ref Range Battery Name URINE CULTURE Specimen Description URINE,INDWELLING CATH Special Requests NONE Culture NO GROWTH Report Status FINAL 12/29/2017 Specimen Performing Laboratory Urine - Melchor Catheter [facility] [address] [place] [address] * URINALYSIS, MICROSCOPIC (12/28/2017 5:18 PM) Component Value Ref Range WBCs,UA 10-20 0 - 2 /HPF RBCs,UA 10-20 0 - 3 /HPF MucousUA TRACE Bacteria,UA FEW (A) NEG-NEG Squamous Epithelial Cells 0-2 0 - 5 Budding Yeast FEW Specimen Performing Laboratory Urine [facility] [address] [place] [address] * URINALYSIS DIPSTICK (12/28/2017 5:18 PM) Component Value Ref Range Color,UA YELLOW Turbidity,UA CLEAR CLEAR-CLEAR Specific [place]-Urine 1.015 1.003 - 1.035 pH,UA 5.0 5.0 - 8.0 Protein,UA NEG NEG-NEG Glucose,UA 3+ (A) NEG-NEG Ketones,UA NEG NEG-NEG Bilirubin,UA NEG NEG-NEG Blood,UA 1+ (A) NEG-NEG Urobilinogen,UA NORMAL NORM-NORMAL Nitrite,UA NEG NEG-NEG Leukocytes,UA 2+ (A) NEG-NEG Urine Ascorbic Acid, UA NEG NEG-NEG Specimen Performing Laboratory Urine [facility] [address] [place], [place] [id number] * POC GLUCOSE (12/28/2017 1:50 PM) Component Value Ref Range Glucose, POC 281 (H) 70 - 100 MG/DL Specimen Performing Laboratory [facility] [address] [place] [address] * POC GLUCOSE (12/28/2017 12:01 PM) Component Value Ref Range Glucose, POC 343 (H) 70 - 100 MG/DL Specimen Performing Laboratory [facility] [address] [place], [place] [address] * PATHOLOGY INTEROPERATIVE REPORT SCAN (12/28/2017 9:36 AM) Narrative Ordered by an unspecified provider. * PATHOLOGY INTEROPERATIVE REPORT SCAN (12/28/2017 9:36 AM) Narrative Ordered by an unspecified provider. * POC GLUCOSE (12/28/2017 7:54 AM) Component Value Ref Range Glucose, POC 187 (H) 70 - 100 MG/DL Specimen Performing Laboratory [facility] [address] [place] [address] * ABDOMEN AP ONLY (12/28/2017 5:27 AM) Specimen Performing Laboratory [facility] RAD RESULTS Impressions Distal duodenal placement of the enteric tube. Surgical defect in the left abdominal wall with a surgical drain in place. Finalized by Xavier Lea M.D. on 12/28/2017 8:27 AM. Dictated by Xavier Lea M.D. on 12/28/2017 8:26 AM. Narrative corpak placement. Technique: Single portable AP supine view of the abdomen was obtained. Comparison: Comparison is made to an examination of the previous day. Findings: Only the upper abdomen is included on the present study. The bowel gas pattern is nonobstructive. There is a defect in the soft tissues of the abdominal wall in the left lower abdomen and pelvis. A surgical drain and multiple skin ceci are present in this defect. An IVC filter is in place at the level of L2. An enteric tube passes into the distal segment of the duodenum. The introducing stylette remains within the lumen of the tube. Procedure Note Interface, Radiant Results - 12/28/2017 8:30 AM CDT corpak placement. Technique: Single portable AP supine view of the abdomen was obtained. Comparison: Comparison is made to an examination of the previous day. Findings: Only the upper abdomen is included on the present study. The bowel gas pattern is nonobstructive. There is a defect in the soft tissues of the abdominal wall in the left lower abdomen and pelvis. A surgical drain and multiple skin ceci are present in this defect. An IVC filter is in place at the level of L2. An enteric tube passes into the distal segment of the duodenum. The introducing stylette remains within the lumen of the tube. IMPRESSION Distal duodenal placement of the enteric tube. Surgical defect in the left abdominal wall with a surgical drain in place. Finalized by Xavier Lea M.D. on 12/28/2017 8:27 AM. Dictated by Xavier Lea M.D. on 12/28/2017 8:26 AM. * HEMOGLOBIN A1C (12/28/2017 4:00 AM) Component Value Ref Range Hemoglobin A1C 6.5 (H) 4.0 - 6.0 % Comment: The ADA recommends that most patients with type 1 and type 2 diabetes maintain an A1c level <7%. Specimen Performing Laboratory MAIN LAB [address] [place] [address] * OSMOLALITY (12/28/2017 4:00 AM) Component Value Ref Range Osmolality 283 280 - 307 MOSMOL/KG Specimen Performing Laboratory [facility]IN [facility] [address] [place] [address] * BASIC METABOLIC PANEL (12/28/2017 4:00 AM) Component Value Ref Range Sodium 131 (L) 137 - 147 MMOL/L Potassium 4.2 3.5 - 5.1 MMOL/L Chloride 97 (L) 98 - 110 MMOL/L CO2 27 21 - 30 MMOL/L Anion Gap 7 3 - 12 Glucose 199 (H) 70 - 100 MG/DL Blood Urea Nitrogen 12 7 - 25 MG/DL Creatinine 0.89 0.4 - 1.00 MG/DL Calcium 8.3 (L) [...] Specimen Performing Laboratory [facility] [address] [place] [address] * CBC AND DIFF (12/28/2017 4:00 AM) Component Value Ref Range White Blood Cells 17.7 (H) 4.5 - 11.0 K/UL RBC 2.68 (L) 4.0 - 5.0 M/UL Hemoglobin 8.2 (L) 12.0 - 15.0 GM/DL Hematocrit 23.8 (L) 36 - 45 % MCV 89.0 80 - 100 FL MCH 30.6 26 - 34 PG MCHC 34.4 32.0 - 36.0 G/DL RDW 15.5 (H) 11 - 15 % Platelet Count 426 (H) 150 - 400 K/UL MPV 6.2 (L) 7 - 11 FL Neutrophils 78 (H) 41 - 77 % Lymphocytes 13 (L) 24 - 44 % Monocytes 6 4 - 12 % Eosinophils 3 0 - 5 % Basophils 0 0 - 2 % Absolute Neutrophil Count 13.80 (H) 1.8 - 7.0 K/UL Absolute Lymph Count 2.20 1.0 - 4.8 K/UL Absolute Monocyte Count 1.10 (H) 0 - 0.80 K/UL Absolute Eosinophil Count 0.60 (H) 0 - 0.45 K/UL Absolute Basophil Count 0.00 0 - 0.20 K/UL Specimen Performing Laboratory [facility] [address] [place] [address] * POC GLUCOSE (12/28/2017 3:27 AM) Component Value Ref Range Glucose, POC 168 (H) 70 - 100 MG/DL Specimen Performing Laboratory [facility] [address] [place] [address] * POC GLUCOSE (12/28/2017 3:14 AM) Component Value Ref Range Glucose, POC 167 (H) 70 - 100 MG/DL Specimen Performing Laboratory [facility] [address] [place] [address] * POC GLUCOSE (12/27/2017 9:28 PM) Component Value Ref Range Glucose, POC 234 (H) 70 - 100 MG/DL Specimen Performing Laboratory [facility] [address] [place] [address] * ABDOMEN AP ONLY (12/27/2017 7:52 PM) Specimen Performing Laboratory [facility] RAD RESULTS Impressions Distal antral or pyloric position of the tip of the enteric tube. Finalized by Xavier Lea M.D. on 12/28/2017 8:41 AM. Dictated by Xavier Lea M.D. on 12/28/2017 8:40 AM. Narrative CorPak placement verification. Technique: Single portable AP supine view of the abdomen was obtained. Comparison: Comparison is made to an examination of 11/20/2017.. Findings: Only the mid abdomen is included in the [id number]. Surgical defect in the left abdominal wall is identified. A surgical drain is in place as are multiple skin ceci. There is gaseous distention of the stomach. An enteric tube is in place with its tip in the region of the distal antrum or pylorus. The introducing stylette remains within the lumen of the tube. Procedure Note Interface, Radiant Results - 12/28/2017 8:44 AM CDT CorPak placement verification. Technique: Single portable AP supine view of the abdomen was obtained. Comparison: Comparison is made to an examination of 11/20/2017.. Findings: Only the mid abdomen is included in the urdwb-hz-shee. Surgical defect in the left abdominal wall is identified. A surgical drain is in place as are multiple skin ceci. There is gaseous distention of the stomach. An enteric tube is in place with its tip in the region of the distal antrum or pylorus. The introducing stylette remains within the lumen of the tube. IMPRESSION Distal antral or pyloric position of the tip of the enteric tube. Finalized by Xavier Lea M.D. on 12/28/2017 8:41 AM. Dictated by Xavier Lea M.D. on 12/28/2017 8:40 AM. * POC GLUCOSE (12/27/2017 5:00 PM) Component Value Ref Range Glucose, POC 325 (H) 70 - 100 MG/DL Specimen Performing Laboratory [facility] LAB [address] [place] [address] * POC GLUCOSE (12/27/2017 11:52 AM) Component Value Ref Range Glucose, POC 143 (H) 70 - 100 MG/DL Specimen Performing Laboratory [facility] [address] [place] [address] * POC GLUCOSE (12/27/2017 7:39 AM) Component Value Ref Range Glucose, POC 193 (H) 70 - 100 MG/DL Specimen Performing Laboratory [facility] [address] [place] [address] * VANCOMYCIN TROUGH (12/27/2017 5:33 AM) Component Value Ref Range Vancomycin Trough 23.2 (H) 10.0 - 20.0 MCG/ML Specimen Performing Laboratory Blood, venous - Blood [facility] [address] [place] [address] * BASIC METABOLIC PANEL (12/27/2017 4:31 AM) Component Value Ref Range Sodium 133 (L) 137 - 147 MMOL/L Potassium 3.8 3.5 - 5.1 MMOL/L Chloride 100 98 - 110 MMOL/L CO2 27 21 - 30 MMOL/L Anion Gap 6 3 - 12 Glucose 183 (H) 70 - 100 MG/DL Blood Urea Nitrogen 7 7 - 25 MG/DL Creatinine 0.83 0.4 - 1.00 MG/DL Calcium 8.0 (L) 8.5 - 10.6 MG/DL eGFR Non [...] questions. Specimen Performing Laboratory [facility] [address] [place] [address] * CBC AND DIFF (12/27/2017 4:31 AM) Component Value Ref Range White Blood Cells 16.4 (H) 4.5 - 11.0 K/UL RBC 2.67 (L) 4.0 - 5.0 M/UL Hemoglobin 8.1 (L) 12.0 - 15.0 GM/DL Hematocrit 23.4 (L) 36 - 45 % MCV 87.6 80 - 100 FL MCH 30.2 26 - 34 PG MCHC 34.5 32.0 - 36.0 G/DL RDW 15.0 11 - 15 % Platelet Count 359 150 - 400 K/UL MPV 6.9 (L) 7 - 11 FL Neutrophils 79 (H) 41 - 77 % Lymphocytes 10 (L) 24 - 44 % Monocytes 7 4 - 12 % Eosinophils 3 0 - 5 % Basophils 1 0 - 2 % Absolute Neutrophil Count 12.90 (H) 1.8 - 7.0 K/UL Absolute Lymph Count 1.60 1.0 - 4.8 K/UL Absolute Monocyte Count 1.20 (H) 0 - 0.80 K/UL Absolute Eosinophil Count 0.50 (H) 0 - 0.45 K/UL Absolute Basophil Count 0.10 0 - 0.20 K/UL Specimen Performing Laboratory [facility] [address] [place] [address] * POC GLUCOSE (12/27/2017 2:35 AM) Component Value Ref Range Glucose, POC 176 (H) 70 - 100 MG/DL Specimen Performing Laboratory [facility] [address] [place] [address] * POC GLUCOSE (12/26/2017 9:25 PM) Component Value Ref Range Glucose, POC 304 (H) 70 - 100 MG/DL Specimen Performing Laboratory [facility] [address] [place] [address] * POC GLUCOSE (12/26/2017 5:42 PM) Component Value Ref Range Glucose, POC 215 (H) 70 - 100 MG/DL Specimen Performing Laboratory [facility] [address] [place] [address] * POC GLUCOSE (12/26/2017 1:20 PM) Component Value Ref Range Glucose, POC 312 (H) 70 - 100 MG/DL Specimen Performing Laboratory [facility] [address] [place] [address] * POC GLUCOSE (12/26/2017 8:31 AM) Component Value Ref Range Glucose, POC 219 (H) 70 - 100 MG/DL Specimen Performing Laboratory [facility] [address] [place] [address] * PHOSPHORUS (12/26/2017 4:01 AM) Component Value Ref Range Phosphorus 2.1 2.0 - 4.0 MG/DL Specimen Performing Laboratory [facility] [address] [place] [address] * MAGNESIUM (12/26/2017 4:01 AM) Component Value Ref Range Magnesium 2.0 1.6 - 2.6 mg/dL Specimen Performing Laboratory [facility] [address] [place] [address] * BASIC METABOLIC PANEL (12/26/2017 4:01 AM) Component Value Ref Range Sodium 133 (L) 137 - 147 MMOL/L Potassium 3.5 3.5 - 5.1 MMOL/L Chloride 98 98 - 110 MMOL/L CO2 27 21 - 30 MMOL/L Anion Gap 8 3 - 12 Glucose 247 (H) 70 - 100 MG/DL Blood Urea Nitrogen 4 (L) 7 - 25 MG/DL Creatinine 0.47 0.4 - 1.00 MG/DL Calcium 7.8 (L) 8.5 - 10.6 MG/DL eGFR Non [...] Pharmacist for questions. Specimen Performing Laboratory Blood [facility] [address] [place] [address] 17945 * CBC AND DIFF (12/26/2017 4:01 AM) Component Value Ref Range White Blood Cells 11.3 (H) 4.5 - 11.0 K/UL RBC 2.64 (L) 4.0 - 5.0 M/UL Hemoglobin 7.9 (L) 12.0 - 15.0 GM/DL Hematocrit 23.5 (L) 36 - 45 % MCV 88.9 80 - 100 FL MCH 29.8 26 - 34 PG MCHC 33.5 32.0 - 36.0 G/DL RDW 15.2 (H) 11 - 15 % Platelet Count 345 150 - 400 K/UL MPV 6.6 (L) 7 - 11 FL Neutrophils 77 41 - 77 % Lymphocytes 12 (L) 24 - 44 % Monocytes 9 4 - 12 % Eosinophils 2 0 - 5 % Basophils 0 0 - 2 % Absolute Neutrophil Count 8.70 (H) 1.8 - 7.0 K/UL Absolute Lymph Count 1.40 1.0 - 4.8 K/UL Absolute Monocyte Count 1.00 (H) 0 - 0.80 K/UL Absolute Eosinophil Count 0.30 0 - 0.45 K/UL Absolute Basophil Count 0.00 0 - 0.20 K/UL Specimen Performing Laboratory Blood [facility] [address] [place], [place] [id number] * POC GLUCOSE (12/26/2017 1:28 AM) Component Value Ref Range Glucose, POC 217 (H) 70 - 100 MG/DL Specimen Performing Laboratory [place] [id number] * POC GLUCOSE (12/25/2017 8:35 PM) Component Value Ref Range Glucose, POC 367 (H) 70 - 100 MG/DL Specimen Performing Laboratory [facility] [address] [place] [address] 29998 * POC GLUCOSE (12/25/2017 5:19 PM) Component Value Ref Range Glucose, POC 292 (H) 70 - 100 MG/DL Specimen Performing Laboratory [facility] [address] [place] [address] 27205 * POC GLUCOSE (12/25/2017 12:02 PM) Component Value Ref Range Glucose, POC 306 (H) 70 - 100 MG/DL Specimen Performing Laboratory [facility] [address] [place] [address] 01866 * POC GLUCOSE (12/25/2017 9:01 AM) Component Value Ref Range Glucose, POC 261 (H) 70 - 100 MG/DL Specimen Performing Laboratory [facility] [address] [place] [address] * CT PELVIS WO CONTRAST (12/25/2017 8:47 [...] present. The bladder is decompressed around a Melchor catheter. There is mild lumbar spondylosis. Procedure [...] present. The bladder is decompressed around a Melchor catheter. There is mild lumbar spondylosis. IMPRESSION [...] Clarke M.D. on 12/25/2017 9:30 AM. * VANCOMYCIN TROUGH (12/25/2017 4:42 AM) Component Value Ref Range Vancomycin Trough 10.0 10.0 - 20.0 MCG/ML Specimen Performing Laboratory [facility] [address] [place] [address] * BASIC METABOLIC PANEL (12/25/2017 4:42 AM) Component Value Ref Range Sodium 131 (L) 137 - 147 MMOL/L Potassium 3.6 3.5 - 5.1 MMOL/L Chloride 97 (L) 98 - 110 MMOL/L CO2 27 21 - 30 MMOL/L Anion Gap 7 3 - 12 Glucose 218 (H) 70 - 100 MG/DL Blood Urea Nitrogen 6 (L) 7 - 25 MG/DL Creatinine 0.49 0.4 - 1.00 MG/DL Calcium 7.5 (L) 8.5 - 10.6 MG/DL eGFR Non [...] questions. Specimen Performing Laboratory Blood [facility] [address] [place] [address] 53046 * CBC AND DIFF (12/25/2017 4:42 AM) Component Value Ref Range White Blood Cells 11.8 (H) 4.5 - 11.0 K/UL RBC 2.69 (L) 4.0 - 5.0 M/UL Hemoglobin 8.3 (L) 12.0 - 15.0 GM/DL Hematocrit 23.9 (L) 36 - 45 % MCV 88.7 80 - 100 FL MCH 30.9 26 - 34 PG MCHC 34.8 32.0 - 36.0 G/DL RDW 14.8 11 - 15 % Platelet Count 296 150 - 400 K/UL MPV 6.9 (L) 7 - 11 FL Neutrophils 80 (H) 41 - 77 % Lymphocytes 9 (L) 24 - 44 % Monocytes 9 4 - 12 % Eosinophils 2 0 - 5 % Basophils 0 0 - 2 % Absolute Neutrophil Count 9.40 (H) 1.8 - 7.0 K/UL Absolute Lymph Count 1.00 1.0 - 4.8 K/UL Absolute Monocyte Count 1.10 (H) 0 - 0.80 K/UL Absolute Eosinophil Count 0.20 0 - 0.45 K/UL Absolute Basophil Count 0.00 0 - 0.20 K/UL Specimen Performing Laboratory Blood [facility] [address] [place] [address] 93922 * POC GLUCOSE (12/25/2017 3:24 AM) Component Value Ref Range Glucose, POC 200 (H) 70 - 100 MG/DL Specimen Performing Laboratory [facility] [address] [place] [address] 21790 * POC GLUCOSE (12/24/2017 8:18 PM) Component Value Ref Range Glucose, POC 263 (H) 70 - 100 MG/DL Specimen Performing Laboratory [facility] [address] [place] [address] * DELIVER & TRANSFUSE RED BLOOD CELLS (INTRAOP ONLY) (12/24/2017 6:16 PM) Specimen Performing Laboratory Blood * POC GLUCOSE (12/24/2017 5:47 PM) Component Value Ref Range Glucose, POC 323 (H) 70 - 100 MG/DL Specimen Performing Laboratory [facility] [address] [place] [address] * POC GLUCOSE (12/24/2017 2:02 PM) Component Value Ref Range Glucose, POC 235 (H) 70 - 100 MG/DL Specimen Performing Laboratory [facility] [address] [place] [address] * CULTURE-BLOOD W/SENSITIVITY (12/24/2017 1:12 PM) Component Value Ref Range Battery Name BLOOD CULTURE Specimen Description BLOOD RIGHT ANTECUBITAL Special Requests NONE Culture NO GROWTH 5 DAYS Report Status FINAL 12/30/2017 Specimen Performing Laboratory Blood [facility]IN [facility] [address] [place] [address] * CHEST SINGLE VIEW (12/24/2017 10:34 AM) Specimen Performing Laboratory [facility] RAD RESULTS Impressions Improvement in left basilar atelectasis without acute cardiopulmonary abnormality. Approved by Skyler Bhandari M.D. on 12/24/2017 11:36 AM By my electronic signature, I attest that I have personally reviewed the images for this examination and formulated the interpretations and opinions expressed in this report Finalized by Boubacar Loomis M.D. on 12/24/2017 11:56 AM. Dictated by Skyler Bhandari M.D. on 12/24/2017 11:01 AM. Narrative CHEST SINGLE VIEW Clinical Indication: Female, 52 years old. Cough, follow-up left pulmonary infiltrate. Comparison: Chest radiograph from 12/21/2017 Findings: Heart size and pulmonary vasculature are within normal limits. Improvement in left lung base opacity. No pleural effusion or pneumothorax. Procedure Note Interface, Radiant Results - 12/24/2017 11:59 AM CDT CHEST SINGLE VIEW Clinical Indication: Female, 52 years old. Cough, follow-up left pulmonary infiltrate. Comparison: Chest radiograph from 12/21/2017 Findings: Heart size and pulmonary vasculature are within normal limits. Improvement in left lung base opacity. No pleural effusion or pneumothorax. IMPRESSION Improvement in left basilar atelectasis without acute cardiopulmonary abnormality. Approved by Skyler Bhandari M.D. on 12/24/2017 11:36 AM By my electronic signature, I attest that I have personally reviewed the images for this examination and formulated the interpretations and opinions expressed in this report Finalized by Boubacar Loomis M.D. on 12/24/2017 11:56 AM. Dictated by Skyler Bhandari M.D. on 12/24/2017 11:01 AM. * TYPE & CROSSMATCH (12/24/2017 9:40 AM) Component Value Ref Range Units Ordered 1 Crossmatch Expires 12/27/2017 Record Check FOUND ABO/RH(D) A POS Antibody Screen NEG Electronic Crossmatch YES Unit Number [id number] Blood Component Type RBC,ADSOL,LEUKO REDUCED Unit Division 0 Status OF Unit TRANSFUSED Transfusion Status OK TO TRANSFUSE Crossmatch Result COMPATIBLE,ELECTRONIC Specimen Performing Laboratory Blood [facility] [address] [place] [address] * POC GLUCOSE (12/24/2017 9:15 AM) Component Value Ref Range Glucose, POC 182 (H) 70 - 100 MG/DL Specimen Performing Laboratory [facility] [address] [place] [address] 65377 * CBC (12/24/2017 7:16 AM) Component Value Ref Range White Blood Cells 15.8 (H) 4.5 - 11.0 K/UL RBC 2.46 (L) 4.0 - 5.0 M/UL Hemoglobin 7.4 (L) 12.0 - 15.0 GM/DL Hematocrit 21.3 (L) 36 - 45 % MCV 86.7 80 - 100 FL MCH 30.0 26 - 34 PG MCHC 34.6 32.0 - 36.0 G/DL RDW 14.7 11 - 15 % Platelet Count 291 150 - 400 K/UL MPV 7.5 7 - 11 FL Specimen Performing Laboratory [facility] [address] [place] [address]158 * CBC (12/24/2017 4:34 AM) Component Value Ref Range White Blood Cells 16.9 (H) 4.5 - 11.0 K/UL RBC 2.46 (L) 4.0 - 5.0 M/UL Hemoglobin 7.3 (L) 12.0 - 15.0 GM/DL Hematocrit 21.3 (L) 36 - 45 % MCV 86.6 80 - 100 FL MCH 29.9 26 - 34 PG MCHC 34.5 32.0 - 36.0 G/DL RDW 14.7 11 - 15 % Platelet Count 294 150 - 400 K/UL MPV 7.7 7 - 11 FL Specimen Performing Laboratory [facility] [address] [place] [address] 64730 * BASIC METABOLIC PANEL (12/24/2017 4:34 AM) Component Value Ref Range Sodium 126 (L) 137 - 147 MMOL/L Potassium 3.9 3.5 - 5.1 MMOL/L Chloride 92 (L) 98 - 110 MMOL/L CO2 27 21 - 30 MMOL/L Anion Gap 7 3 - 12 Glucose 168 (H) 70 - 100 MG/DL Blood Urea Nitrogen 9 7 - 25 MG/DL Creatinine 0.57 0.4 - 1.00 MG/DL Calcium 7.5 (L) 8.5 - 10.6 MG/DL eGFR Non [...] questions. Specimen Performing Laboratory Blood [facility] [address] [place] [address] 55114 * POC GLUCOSE (12/23/2017 9:18 PM) Component Value Ref Range Glucose, POC 133 (H) 70 - 100 MG/DL Specimen Performing Laboratory [facility] [address] [place] [address] 46035 * POC GLUCOSE (12/23/2017 6:56 PM) Component Value Ref Range Glucose, POC 169 (H) 70 - 100 MG/DL Specimen Performing Laboratory [facility] [address] [place] [address] 53987 * OSMOLALITY-URINE RANDOM (12/23/2017 6:14 PM) Component Value Ref Range Osmolality-Urine 298 50 - 1,400 MOS/KG Specimen Performing Laboratory Urine [facility] [address] [place] [address] 91001 * SODIUM-URINE RANDOM (12/23/2017 6:14 PM) Component Value Ref Range Sodium, Random <10 MMOL/L Specimen Performing Laboratory Urine [facility] [address] [place] [address] 24136 * LACTIC ACID (BG - RAPID LACTATE) (12/23/2017 1:42 PM) Component Value Ref Range Lactic Acid,BG 1.9 0.5 - 2.0 MMOL/L Specimen Performing Laboratory Blood [facility] [address] [place] [address] 29162 * CULTURE-BLOOD W/SENSITIVITY (12/23/2017 1:42 PM) Component Value Ref Range Battery Name BLOOD CULTURE Specimen Description BLOOD LEFT ANTECUBITAL Special Requests NONE Culture NO GROWTH 5 DAYS Report Status FINAL 12/29/2017 Specimen Performing Laboratory Blood [facility] [address] [place] [address] 43421 * CULTURE-BLOOD W/SENSITIVITY (12/23/2017 1:05 PM) Component Value Ref Range Battery Name BLOOD CULTURE Specimen Description BLOOD RIGHT ARM Special Requests NONE Culture POSITIVE SMEAR: GRAM POSITIVE COCCI RESEMBLING STREPTOCOCCI one bottle only CRITICAL VALUE CALLED TO AND READ BACK BY/TIME/JOSÉ MIGUEL Pal[employer]/[id number]/EG STREPTOCOCCUS AGALACTIAE(GROUP B) Susceptibility testing of beta lactams is not necessary for clinical purposes since resistant strains have not been recognized (A) Report Status FINAL 12/29/2017 Organism ID STREPTOCOCCUS AGALACTIAE(GROUP B) Susceptibility testing of beta lactams is not necessary for clinical purposes since resistant strains have not been recognized Specimen Performing Laboratory Blood [facility] [address] [place] [address] 26413 Organism Antibiotic Method Susceptibility Streptococcus Levofloxacin GRAF ARDON SUSCEPTIBLE: Susceptible agalactiae(group b) susceptibility testing of beta lactams is not necessary for clinical purposes since resistant strains have not been recognized Streptococcus Method GRAF ARDON GRAF ARDON agalactiae(group b) susceptibility testing of beta lactams is not necessary for clinical purposes since resistant strains have not been recognized * POC GLUCOSE (12/23/2017 11:00 AM) Component Value Ref Range Glucose, POC 174 (H) 70 - 100 MG/DL Specimen Performing Laboratory [facility] [address] [place] [address] 25841 * C DIFFICILE BY PCR (12/23/2017 10:14 AM) Component Value Ref Range Battery Name C DIFFICILE PCR Specimen Description FECES Special Requests NONE C. Difficile Toxin B PCR Repeat testing not indicated on specimen negative by PCR within 7 days notified MAURO/Gaye 12.23.17/ Report Status FINAL 12/23/2017 Specimen Performing Laboratory Feces [facility] [address] [place], [place] [id number] * POC GLUCOSE (12/23/2017 9:35 AM) Component Value Ref Range Glucose, POC 165 (H) 70 - 100 MG/DL Specimen Performing Laboratory [facility] [address] [place] [id number] * CBC (12/23/2017 7:29 AM) Component Value Ref Range White Blood Cells 20.8 (H) 4.5 - 11.0 K/UL RBC 2.80 (L) 4.0 - 5.0 M/UL Hemoglobin 8.3 (L) 12.0 - 15.0 GM/DL Hematocrit 24.7 (L) 36 - 45 % MCV 88.2 80 - 100 FL MCH 29.5 26 - 34 PG MCHC 33.4 32.0 - 36.0 G/DL RDW 14.8 11 - 15 % Platelet Count 336 150 - 400 K/UL MPV 7.2 7 - 11 FL Specimen Performing Laboratory Blood [facility] [address] [place], [place] [id number] * BASIC METABOLIC PANEL (12/23/2017 7:29 AM) Component Value Ref Range Sodium 127 (L) 137 - 147 MMOL/L Potassium 4.2 3.5 - 5.1 MMOL/L Chloride 94 (L) 98 - 110 MMOL/L CO2 27 21 - 30 MMOL/L Anion Gap 6 3 - 12 Glucose 193 (H) 70 - 100 MG/DL Blood Urea Nitrogen 9 7 - 25 MG/DL Creatinine 0.72 0.4 - 1.00 MG/DL Calcium 7.8 (L) 8.5 - 10.6 MG/DL eGFR Non [...] Specimen Performing Laboratory Blood [facility] [address] [place] [address] * POC GLUCOSE (12/22/2017 9:17 PM) Component Value Ref Range Glucose, POC 303 (H) 70 - 100 MG/DL Specimen Performing Laboratory [facility] [address] [place] [address] * POC GLUCOSE (12/22/2017 5:50 PM) Component Value Ref Range Glucose, POC 376 (H) 70 - 100 MG/DL Specimen Performing Laboratory [facility] [address] [place] [address] 49506 * POC GLUCOSE (12/22/2017 12:39 PM) Component Value Ref Range Glucose, POC 227 (H) 70 - 100 MG/DL Specimen Performing Laboratory [facility] [address] [place] [address] 74413 * PREALBUMIN (12/22/2017 11:22 AM) Component Value Ref Range Prealbumin 4.0 (L) 17 - 34 MG/DL Specimen Performing Laboratory Blood [facility] [address] [place] [address] 43393 * POC GLUCOSE (12/22/2017 9:41 AM) Component Value Ref Range Glucose, POC 113 (H) 70 - 100 MG/DL Specimen Performing Laboratory [facility] [address] [place] [address] 18692 * ECG-SCAN (12/22/2017 8:10 AM) Narrative Ordered by an unspecified provider. * ECG-SCAN (12/22/2017 8:10 AM) Narrative Ordered by an unspecified provider. * LIVER FUNCTION PANEL (12/22/2017 4:13 AM) Component Value Ref Range Total Bilirubin 0.4 0.3 - 1.2 MG/DL Bilirubin, Direct <0.1 <0.4 MG/DL Albumin 1.9 (L) 3.5 - 5.0 G/DL Alk Phosphatase 104 25 - 110 U/L AST (SGOT) 22 7 - 40 U/L ALT (SGPT) 19 7 - 56 U/L Total Protein 4.8 (L) 6.0 - 8.0 G/DL Specimen Performing Laboratory Blood [facility] [address] [place] [address] 92391 * ALBUMIN (12/22/2017 4:13 AM) Component Value Ref Range Albumin 2.0 (L) 3.5 - 5.0 G/DL Specimen Performing Laboratory [facility] [address] [place] [address] 18397 * CBC (12/22/2017 4:13 AM) Component Value Ref Range White Blood Cells 22.2 (H) 4.5 - 11.0 K/UL RBC 2.80 (L) 4.0 - 5.0 M/UL Hemoglobin 8.5 (L) 12.0 - 15.0 GM/DL Hematocrit 24.1 (L) 36 - 45 % MCV 86.0 80 - 100 FL MCH 30.3 26 - 34 PG MCHC 35.3 32.0 - 36.0 G/DL RDW 14.6 11 - 15 % Platelet Count 349 150 - 400 K/UL MPV 7.5 7 - 11 FL Specimen Performing Laboratory Blood [facility] [address] [place] [address] 61225 * BASIC METABOLIC PANEL (12/22/2017 4:13 AM) Component Value Ref Range Sodium 127 (L) 137 - 147 MMOL/L Potassium 4.2 3.5 - 5.1 MMOL/L Chloride 93 (L) 98 - 110 MMOL/L CO2 26 21 - 30 MMOL/L Anion Gap 8 3 - 12 Glucose 142 (H) 70 - 100 MG/DL Blood Urea Nitrogen 9 7 - 25 MG/DL Creatinine 0.60 0.4 - 1.00 MG/DL Calcium 7.8 (L) 8.5 - 10.6 MG/DL eGFR Non [...] Pharmacist for questions. Specimen Performing Laboratory Blood [facility] [address] [place] [address] 63178 * POC GLUCOSE (12/21/2017 8:38 PM) Component Value Ref Range Glucose, POC 208 (H) 70 - 100 MG/DL Specimen Performing Laboratory [facility] [address] [place] [address] 65833 * POC GLUCOSE (12/21/2017 5:10 PM) Component Value Ref Range Glucose, POC 219 (H) 70 - 100 MG/DL Specimen Performing Laboratory [facility] [address] [place] [address] 34734 * POC GLUCOSE (12/21/2017 2:59 PM) Component Value Ref Range Glucose, POC 213 (H) 70 - 100 MG/DL Specimen Performing Laboratory [facility] [address] [place] [address] 89328 * CHEST SINGLE VIEW (12/21/2017 12:34 PM) Specimen Performing Laboratory [facility] RAD RESULTS Impressions Increased opacity in left lung base, compatible with atelectasis and/or pneumonia. Finalized by Nichelle Bullard M.D. on 12/21/2017 12:49 PM. Dictated by Nichelle Bullard M.D. on 12/21/2017 12:48 PM. Narrative CHEST SINGLE VIEW Indication: elevated WBC. Comparison: There are no prior studies for direct comparison. Findings: The heart and pulmonary vasculature are unremarkable. There is mild increased opacity in the left lung base, compatible with atelectasis and/or pneumonia. No pleural effusion or pneumothorax is identified. Procedure Note Interface, Radiant Results - 12/21/2017 12:52 PM CDT CHEST SINGLE VIEW Indication: elevated WBC. Comparison: There are no prior studies for direct comparison. Findings: The heart and pulmonary vasculature are unremarkable. There is mild increased opacity in the left lung base, compatible with atelectasis and/or pneumonia. No pleural effusion or pneumothorax is identified. IMPRESSION Increased opacity in left lung base, compatible with atelectasis and/or pneumonia. Finalized by Nichelle Bullard M.D. on 12/21/2017 12:49 PM. Dictated by Nichelle Bullard M.D. on 12/21/2017 12:48 PM. * LACTIC ACID(LACTATE) (12/21/2017 11:33 AM) Component Value Ref Range Lactic Acid 1.9 0.5 - 2.0 MMOL/L Specimen Performing Laboratory Blood [facility] [address] [place] [address] 76204 * BASIC METABOLIC PANEL (12/21/2017 11:33 AM) Component Value Ref Range Sodium 123 (L) 137 - 147 MMOL/L Potassium 4.5 3.5 - 5.1 MMOL/L Chloride 89 (L) 98 - 110 MMOL/L CO2 26 21 - 30 MMOL/L Anion Gap 8 3 - 12 Glucose 245 (H) 70 - 100 MG/DL Blood Urea Nitrogen 11 7 - 25 MG/DL Creatinine 0.82 0.4 - 1.00 MG/DL Calcium 7.7 (L) 8.5 - 10.6 MG/DL eGFR Non [...] questions. Specimen Performing Laboratory Blood [facility] [address] [place] [address] 42632 * CULTURE-URINE W/SENSITIVITY (12/21/2017 9:00 AM) Component Value Ref Range Battery Name URINE CULTURE Specimen Description URINE Special Requests NONE Culture >100,000 organisms/ml ARACELY SPECIES, NOT ALBICANS Report Status FINAL 12/22/2017 Specimen Performing Laboratory Urine [facility] [address] [place] [address] 18007 * URINALYSIS MICROSCOPIC REFLEX TO CULTURE (12/21/2017 9:00 AM) Component Value Ref Range WBCs,UA 2-10 0 - 2 /HPF RBCs,UA 0-2 0 - 3 /HPF Comment,UA Urine submitted for reflex culture if criteria are met:WBC>10, positive nitrite and/or >=1+ leukocyte esterase. If quantity is not sufficient, an addendum will follow. Squamous Epithelial Cells 0-2 0 - 5 Budding Yeast PACKED Specimen Performing Laboratory Urine [facility] [address] [place] [address] 08583 * URINALYSIS DIPSTICK REFLEX TO CULTURE (12/21/2017 9:00 AM) Component Value Ref Range Color,UA YELLOW Turbidity,UA CLEAR CLEAR-CLEAR Specific [place]-Urine 1.003 1.003 - 1.035 pH,UA 7.0 5.0 - 8.0 Protein,UA NEG NEG-NEG Glucose,UA NEG NEG-NEG Ketones,UA NEG NEG-NEG Bilirubin,UA NEG NEG-NEG Blood,UA 1+ (A) NEG-NEG Urobilinogen,UA NORMAL NORM-NORMAL Nitrite,UA NEG NEG-NEG Leukocytes,UA 1+ (A) NEG-NEG Urine Ascorbic Acid, UA NEG NEG-NEG Specimen Performing Laboratory Urine [facility] [address] [place] [address] 66560 * UA REFLEX CULTURE LABEL (12/21/2017 9:00 AM) Component Value Ref Range UA Reflex Culture LAB LABEL Specimen Performing Laboratory Urine [facility] [address] [place] [address] 68071 * OSMOLALITY-URINE RANDOM (12/21/2017 9:00 AM) Component Value Ref Range Osmolality-Urine 94 50 - 1,400 MOS/KG Specimen Performing Laboratory Urine [facility] [address] [place] [address] 98555 * SODIUM-URINE RANDOM (12/21/2017 9:00 AM) Component Value Ref Range Sodium, Random <10 MMOL/L Specimen Performing Laboratory Urine [facility] [address] [place] [address] 90555 * POC GLUCOSE (12/21/2017 8:50 AM) Component Value Ref Range Glucose, POC 136 (H) 70 - 100 MG/DL Specimen Performing Laboratory [facility] [address] [place] [address] 30894 * URIC ACID (12/21/2017 4:38 AM) Component Value Ref Range Uric Acid 3.3 2.0 - 7.0 MG/DL Specimen Performing Laboratory [facility] [address] [place] [address] * THYROID STIMULATING HORMONE-TSH (12/21/2017 4:38 AM) Component Value Ref Range TSH 2.150 0.35 - 5.00 MCU/ML Specimen Performing Laboratory [facility] [address] [place], [place] [id number] * OSMOLALITY (12/21/2017 4:38 AM) Component Value Ref Range Osmolality 258 (L) 280 - 307 MOSMOL/KG Specimen Performing Laboratory [facility] [address] [place] [address] * CORTISOL,RANDOM (12/21/2017 4:38 AM) Component Value Ref Range Cortisol, Random 15.5 5.0 - 20.0 MCG/DL Specimen Performing Laboratory [facility] [address] [place] [address] * CBC (12/21/2017 4:38 AM) Component Value Ref Range White Blood Cells 20.1 (H) 4.5 - 11.0 K/UL RBC 3.04 (L) 4.0 - 5.0 M/UL Hemoglobin 9.3 (L) 12.0 - 15.0 GM/DL Hematocrit 26.8 (L) 36 - 45 % MCV 88.1 80 - 100 FL MCH 30.6 26 - 34 PG MCHC 34.8 32.0 - 36.0 G/DL RDW 14.4 11 - 15 % Platelet Count 356 150 - 400 K/UL MPV 6.8 (L) 7 - 11 FL Specimen Performing Laboratory Blood [facility] [address] [place] [address] 87421 * BASIC METABOLIC PANEL (12/21/2017 4:38 AM) Component Value Ref Range Sodium 123 (L) 137 - 147 MMOL/L Potassium 4.1 3.5 - 5.1 MMOL/L Chloride 89 (L) 98 - 110 MMOL/L CO2 26 21 - 30 MMOL/L Anion Gap 8 3 - 12 Glucose 152 (H) 70 - 100 MG/DL Blood Urea Nitrogen 10 7 - 25 MG/DL Creatinine 0.56 0.4 - 1.00 MG/DL Calcium 7.8 (L) 8.5 - 10.6 MG/DL eGFR Non [...] questions. Specimen Performing Laboratory Blood [facility]IN [facility] [address] [place] [address] 55708 * POC GLUCOSE (12/21/2017 2:54 AM) Component Value Ref Range Glucose, POC 157 (H) 70 - 100 MG/DL Specimen Performing Laboratory [facility] [address] [place] [address] 74640 * POC GLUCOSE (12/20/2017 9:27 PM) Component Value Ref Range Glucose, POC 263 (H) 70 - 100 MG/DL Specimen Performing Laboratory [facility] [address] [place] [address] 16770 * POC GLUCOSE (12/20/2017 6:47 PM) Component Value Ref Range Glucose, POC 245 (H) 70 - 100 MG/DL Specimen Performing Laboratory [facility] [address] [place] [address] 92479 * C DIFFICILE BY PCR (12/20/2017 1:40 PM) Component Value Ref Range Battery Name C DIFFICILE PCR Specimen Description FECES Special Requests NONE C. Difficile Toxin B PCR NEGATIVE-wait 7 days to repeat test Report Status FINAL 12/20/2017 Specimen Performing Laboratory Feces [facility] [address] [place] [address] 98864 * POC GLUCOSE (12/20/2017 11:30 AM) Component Value Ref Range Glucose, POC 208 (H) 70 - 100 MG/DL Specimen Performing Laboratory [facility] [address] [place] [address] 10970 * POC GLUCOSE (12/20/2017 8:42 AM) Component Value Ref Range Glucose, POC 133 (H) 70 - 100 MG/DL Specimen Performing Laboratory [facility] [address] [place] [address] * POC GLUCOSE (12/20/2017 3:21 AM) Component Value Ref Range Glucose, POC 151 (H) 70 - 100 MG/DL Specimen Performing Laboratory [facility] [address] [place] [address] 81632 * BASIC METABOLIC PANEL (12/20/2017 3:10 AM) Component Value Ref Range Sodium 132 (L) 137 - 147 MMOL/L Potassium 3.3 (L) 3.5 - 5.1 MMOL/L Chloride 94 (L) 98 - 110 MMOL/L CO2 29 21 - 30 MMOL/L Anion Gap 9 3 - 12 Glucose 150 (H) 70 - 100 MG/DL Blood Urea Nitrogen 8 7 - 25 MG/DL Creatinine 0.69 0.4 - 1.00 MG/DL Calcium 8.3 (L) [...] questions. Specimen Performing Laboratory Blood [facility]IN [facility] [address] [place] [address] 10589 * CBC (12/20/2017 3:10 AM) Component Value Ref Range White Blood Cells 18.8 (H) 4.5 - 11.0 K/UL RBC 3.48 (L) 4.0 - 5.0 M/UL Hemoglobin 10.4 (L) 12.0 - 15.0 GM/DL Hematocrit 30.9 (L) 36 - 45 % MCV 88.8 80 - 100 FL MCH 29.9 26 - 34 PG MCHC 33.6 32.0 - 36.0 G/DL RDW 14.3 11 - 15 % Platelet Count 394 150 - 400 K/UL MPV 7.2 7 - 11 FL Specimen Performing Laboratory Blood [facility] [address] [place] [address] 26687 * POC GLUCOSE (12/19/2017 9:46 PM) Component Value Ref Range Glucose, POC 151 (H) 70 - 100 MG/DL Specimen Performing Laboratory [facility] [address] [place] [address] 18216 * POC GLUCOSE (12/19/2017 5:06 PM) Component Value Ref Range Glucose, POC 207 (H) 70 - 100 MG/DL Specimen Performing Laboratory [facility] [address] [place] [address] 18834 * POC GLUCOSE (12/19/2017 11:56 AM) Component Value Ref Range Glucose, POC 153 (H) 70 - 100 MG/DL Specimen Performing Laboratory [facility] [address] [place] [address] * POC GLUCOSE (12/19/2017 9:07 AM) Component Value Ref Range Glucose, POC 127 (H) 70 - 100 MG/DL Specimen Performing Laboratory [facility] [address] [place], [place] [id number] * CBC (12/19/2017 3:05 AM) Component Value Ref Range White Blood Cells 17.0 (H) 4.5 - 11.0 K/UL RBC 2.67 (L) 4.0 - 5.0 M/UL Hemoglobin 8.2 (L) 12.0 - 15.0 GM/DL Hematocrit 23.8 (L) 36 - 45 % MCV 89.1 80 - 100 FL MCH 30.6 26 - 34 PG MCHC 34.4 32.0 - 36.0 G/DL RDW 14.0 11 - 15 % Platelet Count 274 150 - 400 K/UL MPV 7.3 7 - 11 FL Specimen Performing Laboratory Blood [facility] [address] [place] [address] 46297 * BASIC METABOLIC PANEL (12/19/2017 3:05 AM) Component Value Ref Range Sodium 136 (L) 137 - 147 MMOL/L Potassium 3.4 (L) 3.5 - 5.1 MMOL/L Chloride 98 98 - 110 MMOL/L CO2 29 21 - 30 MMOL/L Anion Gap 9 3 - 12 Glucose 122 (H) 70 - 100 MG/DL Blood Urea Nitrogen 10 7 - 25 MG/DL Creatinine 0.46 0.4 - 1.00 MG/DL Calcium 8.1 (L) 8.5 - 10.6 MG/DL eGFR Non [...] Pharmacist for questions. Specimen Performing Laboratory Blood [facility] [address] [place] [address] 97634 * IONIZED CALCIUM (12/19/2017 3:05 AM) Component Value Ref Range Ionized Calcium 1.07 1.0 - 1.3 MMOL/L Specimen Performing Laboratory Blood [facility] [address] [place] [address] 67087 * PHOSPHORUS (12/19/2017 3:05 AM) Component Value Ref Range Phosphorus 3.0 2.0 - 4.0 MG/DL Specimen Performing Laboratory Blood [facility] [address] [place], [place] [id number] * MAGNESIUM (12/19/2017 3:05 AM) Component Value Ref Range Magnesium 1.9 1.6 - 2.6 mg/dL Specimen Performing Laboratory Blood [facility] [address] [place] [address] 56788 * POC GLUCOSE (12/18/2017 9:00 PM) Component Value Ref Range Glucose, POC 97 70 - 100 MG/DL Specimen Performing Laboratory [facility] [address] [place] [address] 99033 * POC GLUCOSE (12/18/2017 4:38 PM) Component Value Ref Range Glucose, POC 173 (H) 70 - 100 MG/DL Specimen Performing Laboratory [facility] [address] [place] [address] 41298 * POC GLUCOSE (12/18/2017 12:00 PM) Component Value Ref Range Glucose, POC 129 (H) 70 - 100 MG/DL Specimen Performing Laboratory [facility] [address] [place] [address] 32252 * POC GLUCOSE (12/18/2017 8:45 AM) Component Value Ref Range Glucose, POC 107 (H) 70 - 100 MG/DL Specimen Performing Laboratory [facility] [address] [place] [address] 05517 * POC GLUCOSE (12/18/2017 3:08 AM) Component Value Ref Range Glucose, POC 132 (H) 70 - 100 MG/DL Specimen Performing Laboratory [facility] [address] [place] [address] 14008 * CBC (12/18/2017 3:07 AM) Component Value Ref Range White Blood Cells 18.2 (H) 4.5 - 11.0 K/UL RBC 2.76 (L) 4.0 - 5.0 M/UL Hemoglobin 8.6 (L) 12.0 - 15.0 GM/DL Hematocrit 24.6 (L) 36 - 45 % MCV 89.4 80 - 100 FL MCH 31.2 26 - 34 PG MCHC 35.0 32.0 - 36.0 G/DL RDW 14.6 11 - 15 % Platelet Count 217 150 - 400 K/UL MPV 7.6 7 - 11 FL Specimen Performing Laboratory Blood [facility] [address] [place] [address] 03461 * BASIC METABOLIC PANEL (12/18/2017 3:07 AM) Component Value Ref Range Sodium 140 137 - 147 MMOL/L Potassium 3.4 (L) 3.5 - 5.1 MMOL/L Chloride 104 98 - 110 MMOL/L CO2 28 21 - 30 MMOL/L Anion Gap 8 3 - 12 Glucose 134 (H) 70 - 100 MG/DL Blood Urea Nitrogen 21 7 - 25 MG/DL Creatinine 0.52 0.4 - 1.00 MG/DL Calcium 8.8 8.5 [...] Specimen Performing Laboratory Blood [facility] [address] [place] [address] * IONIZED CALCIUM (12/18/2017 3:07 AM) Component Value Ref Range Ionized Calcium 1.12 1.0 - 1.3 MMOL/L Specimen Performing Laboratory Blood [facility] [address] [place] [address] * PHOSPHORUS (12/18/2017 3:07 AM) Component Value Ref Range Phosphorus 2.5 2.0 - 4.0 MG/DL Specimen Performing Laboratory Blood [facility] [address] [place] [address] 11294 * MAGNESIUM (12/18/2017 3:07 AM) Component Value Ref Range Magnesium 2.2 1.6 - 2.6 mg/dL Specimen Performing Laboratory Blood [facility] [address] [place] [address] 86048 * POC GLUCOSE (12/17/2017 8:27 PM) Component Value Ref Range Glucose, POC 154 (H) 70 - 100 MG/DL Specimen Performing Laboratory [facility] [address] [place] [address] 07128 * POC GLUCOSE (12/17/2017 5:31 PM) Component Value Ref Range Glucose, POC 197 (H) 70 - 100 MG/DL Specimen Performing Laboratory [facility] [address] [place] [address] 39582 * CBC (12/17/2017 5:31 PM) Component Value Ref Range White Blood Cells 16.8 (H) 4.5 - 11.0 K/UL RBC 3.17 (L) 4.0 - 5.0 M/UL Hemoglobin 9.7 (L) 12.0 - 15.0 GM/DL Hematocrit 27.8 (L) 36 - 45 % MCV 87.7 80 - 100 FL MCH 30.6 26 - 34 PG MCHC 34.9 32.0 - 36.0 G/DL RDW 14.5 11 - 15 % Platelet Count 170 150 - 400 K/UL MPV 7.9 7 - 11 FL Specimen Performing Laboratory Blood [facility] [address] [place] [address] 88706 * POC GLUCOSE (12/17/2017 12:05 PM) Component Value Ref Range Glucose, POC 136 (H) 70 - 100 MG/DL Specimen Performing Laboratory [facility] [address] [place] [address] 14873 * POC GLUCOSE (12/17/2017 8:17 AM) Component Value Ref Range Glucose, POC 123 (H) 70 - 100 MG/DL Specimen Performing Laboratory [facility] [address] [place] [address] 58005 * ABDOMEN AP ONLY (12/17/2017 7:10 AM) Specimen Performing Laboratory RAD RESULTS Impressions Nasoenteric tube positioning as described. Approved by Gagan Gonzalez MD on 12/17/2017 3:01 PM By my electronic signature, I attest that I have personally reviewed the images for this examination and formulated the interpretations and opinions expressed in this report Finalized by Anand Castano D.O. on 12/17/2017 9:43 PM. Dictated by Gagan Gonzalez MD on 12/17/2017 1:22 PM. Narrative ABDOMEN AP ONLY Indication: Female, 52 years old. Nasogastric tube placement. Comparison: CT chest from 11/26/2017. CT abdomen/pelvis from 11/22/2017. Findings: Nasogastric tube in place with the distal tip overlying the proximal stomach. The visualized upper abdominal bowel loops are nondilated. Skin ceci overlie the left abdomen. Procedure Note Interface, Radiant Results - 12/17/2017 9:46 PM CDT ABDOMEN AP ONLY Indication: Female, 52 years old. Nasogastric tube placement. Comparison: CT chest from 11/26/2017. CT abdomen/pelvis from 11/22/2017. Findings: Nasogastric tube in place with the distal tip overlying the proximal stomach. The visualized upper abdominal bowel loops are nondilated. Skin ceci overlie the left abdomen. IMPRESSION Nasoenteric tube positioning as described. Approved by Gagan Gonzalez MD on 12/17/2017 3:01 PM By my electronic signature, I attest that I have personally reviewed the images for this examination and formulated the interpretations and opinions expressed in this report Finalized by Anand Castano D.O. on 12/17/2017 9:43 PM. Dictated by Gagan Gonzalez MD on 12/17/2017 1:22 PM. * POC GLUCOSE (12/17/2017 3:04 AM) Component Value Ref Range Glucose, POC 135 (H) 70 - 100 MG/DL Specimen Performing Laboratory [facility] [address] [place] [address] 55680 * CBC (12/17/2017 3:04 AM) Component Value Ref Range White Blood Cells 12.2 (H) 4.5 - 11.0 K/UL RBC 3.00 (L) 4.0 - 5.0 M/UL Hemoglobin 9.1 (L) 12.0 - 15.0 GM/DL Hematocrit 26.7 (L) 36 - 45 % MCV 89.2 80 - 100 FL MCH 30.4 26 - 34 PG MCHC 34.1 32.0 - 36.0 G/DL RDW 14.5 11 - 15 % Platelet Count 138 (L) 150 - 400 K/UL MPV 7.2 7 - 11 FL Specimen Performing Laboratory Blood [facility] [address] [place], [place] [id number] * BASIC METABOLIC PANEL (12/17/2017 3:04 AM) Component Value Ref Range Sodium 141 137 - 147 MMOL/L Potassium 3.9 3.5 - 5.1 MMOL/L Chloride 108 98 - 110 MMOL/L CO2 25 21 - 30 MMOL/L Anion Gap 8 3 - 12 Glucose 137 (H) 70 - 100 MG/DL Blood Urea Nitrogen 17 7 - 25 MG/DL Creatinine 0.57 0.4 - 1.00 MG/DL Calcium 8.3 (L) [...] questions. Specimen Performing Laboratory Blood [facility] [address] [place] [address] 77299 * IONIZED CALCIUM (12/17/2017 3:04 AM) Component Value Ref Range Ionized Calcium 1.13 1.0 - 1.3 MMOL/L Specimen Performing Laboratory Blood [facility] [address] [place] [address] 85840 * PHOSPHORUS (12/17/2017 3:04 AM) Component Value Ref Range Phosphorus 2.0 2.0 - 4.0 MG/DL Specimen Performing Laboratory Blood [facility] [address] [place] [address] 70889 * MAGNESIUM (12/17/2017 3:04 AM) Component Value Ref Range Magnesium 2.1 1.6 - 2.6 mg/dL Specimen Performing Laboratory Blood [facility] [address] [place] [address] 21530 * CBC (12/16/2017 10:00 PM) Component Value Ref Range White Blood Cells 11.2 (H) 4.5 - 11.0 K/UL RBC 2.76 (L) 4.0 - 5.0 M/UL Hemoglobin 8.6 (L) 12.0 - 15.0 GM/DL Hematocrit 24.6 (L) 36 - 45 % MCV 89.2 80 - 100 FL MCH 31.0 26 - 34 PG MCHC 34.7 32.0 - 36.0 G/DL RDW 14.6 11 - 15 % Platelet Count 138 (L) 150 - 400 K/UL MPV 7.1 7 - 11 FL Specimen Performing Laboratory Blood [facility] [address] [place], [place] [id number] * POC GLUCOSE (12/16/2017 8:26 PM) Component Value Ref Range Glucose, POC 131 (H) 70 - 100 MG/DL Specimen Performing Laboratory [facility] [address] [place], [place] [id number] * POC GLUCOSE (12/16/2017 5:01 PM) Component Value Ref Range Glucose, POC 165 (H) 70 - 100 MG/DL Specimen Performing Laboratory [facility] [address] [place] [address] * BASIC METABOLIC PANEL (12/16/2017 2:20 PM) Component Value Ref Range Sodium 137 137 - 147 MMOL/L Potassium 4.1 3.5 - 5.1 MMOL/L Chloride 109 98 - 110 MMOL/L CO2 23 21 - 30 MMOL/L Anion Gap 5 3 - 12 Glucose 172 (H) 70 - 100 MG/DL Blood Urea Nitrogen 23 7 - 25 MG/DL Creatinine 0.72 0.4 - 1.00 MG/DL Calcium 8.4 (L) [...] questions. Specimen Performing Laboratory [facility] [address] [place] [address] * CBC (12/16/2017 2:20 PM) Component Value Ref Range White Blood Cells 11.7 (H) 4.5 - 11.0 K/UL RBC 2.86 (L) 4.0 - 5.0 M/UL Hemoglobin 8.6 (L) 12.0 - 15.0 GM/DL Hematocrit 24.9 (L) 36 - 45 % MCV 87.0 80 - 100 FL MCH 30.2 26 - 34 PG MCHC 34.7 32.0 - 36.0 G/DL RDW 14.6 11 - 15 % Platelet Count 126 (L) 150 - 400 K/UL MPV 7.6 7 - 11 FL Specimen Performing Laboratory Blood [facility] [address] [place], [place] [id number] * POC GLUCOSE (12/16/2017 12:09 PM) Component Value Ref Range Glucose, POC 181 (H) 70 - 100 MG/DL Specimen Performing Laboratory [facility] [address] [place] [address] 21666 * POC GLUCOSE (12/16/2017 9:39 AM) Component Value Ref Range Glucose, POC 171 (H) 70 - 100 MG/DL Specimen Performing Laboratory [facility] [address] [place] [address] * BLOOD GASES, ARTERIAL (12/16/2017 3:27 AM) Component Value Ref Range pH-Arterial 7.33 (L) 7.35 - 7.45 pCO2-Arterial 41 35 - 45 MMHG pO2-Arterial 84 80 - 100 MMHG Base Deficit-Arterial 4.2 MMOL/L O2 Sat-Arterial 97.0 95 - 99 % Pfqlqluunxb-ROX-Ffv 20.9 (L) 21 - 28 MMOL/L Specimen Performing Laboratory Blood, arterial - Blood [facility] [address] [place] [address] 23130 * POC GLUCOSE (12/16/2017 3:06 AM) Component Value Ref Range Glucose, POC 136 (H) 70 - 100 MG/DL Specimen Performing Laboratory [facility] [address] [place], [place] [id number] * CBC (12/16/2017 3:05 AM) Component Value Ref Range White Blood Cells 14.6 (H) 4.5 - 11.0 K/UL RBC 3.06 (L) 4.0 - 5.0 M/UL Hemoglobin 9.3 (L) 12.0 - 15.0 GM/DL Hematocrit 27.6 (L) 36 - 45 % MCV 90.2 80 - 100 FL MCH 30.3 26 - 34 PG MCHC 33.6 32.0 - 36.0 G/DL RDW 14.5 11 - 15 % Platelet Count 134 (L) 150 - 400 K/UL MPV 7.2 7 - 11 FL Specimen Performing Laboratory Blood [facility] [address] [place] [address] 80233 * BASIC METABOLIC PANEL (12/16/2017 3:05 AM) Component Value Ref Range Sodium 136 (L) 137 - 147 MMOL/L Potassium 4.7 3.5 - 5.1 MMOL/L Chloride 110 98 - 110 MMOL/L CO2 20 (L) 21 - 30 MMOL/L Anion Gap 6 3 - 12 Glucose 218 (H) 70 - 100 MG/DL Blood Urea Nitrogen 26 (H) 7 - 25 MG/DL Creatinine 1.40 (H) 0.4 - 1.00 MG/DL Calcium 7.9 (L) 8.5 - 10.6 MG/DL eGFR Non 39 (L) >60 mL/min Comment: The eGFR is not validated for use in drug dosing adjustments.Continue to use estimated creatinine clearance per dosing reference text.Please contact the Clinical Pharmacist for questions. eGFR 48 (L) >60 mL/min Comment: The eGFR is not validated for use in drug dosing adjustments.Continue to use estimated creatinine clearance per dosing reference text.Please contact the Clinical Pharmacist for questions. Specimen Performing Laboratory Blood [facility] [address] [place] [address] 70880 * IONIZED CALCIUM (12/16/2017 3:05 AM) Component Value Ref Range Ionized Calcium 1.16 1.0 - 1.3 MMOL/L Specimen Performing Laboratory Blood [facility] [address] [place] [address] 36900 * PHOSPHORUS (12/16/2017 3:05 AM) Component Value Ref Range Phosphorus 3.6 2.0 - 4.0 MG/DL Specimen Performing Laboratory Blood [facility] [address] [place] [address] 76450 * MAGNESIUM (12/16/2017 3:05 AM) Component Value Ref Range Magnesium 1.8 1.6 - 2.6 mg/dL Specimen Performing Laboratory Blood [facility] [address] [place] [address] 83457 * PHOSPHORUS (12/15/2017 10:00 PM) Component Value Ref Range Phosphorus 4.1 (H) 2.0 - 4.0 MG/DL Specimen Performing Laboratory Blood [facility] [address] [place], [place] [id number] * MAGNESIUM (12/15/2017 10:00 PM) Component Value Ref Range Magnesium 2.0 1.6 - 2.6 mg/dL Specimen Performing Laboratory Blood [facility] [address] [place] [id number] * TEG WITH KAOLIN (12/15/2017 10:00 PM) Component Value Ref Range MA Kaolin 72.6 (H) 50.0 - 70.0 MM R Kaolin 4.2 3.0 - 9.0 MIN RK Kaolin 5.5 4.0 - 12.0 MIN K Kaolin 1.3 1.0 - 3.0 MIN Angle Kaolin 69.0 55 - 75 DEG Lysis30 0.4 0.0 - 8.0 % Specimen Performing Laboratory Blood [facility] * COMPREHENSIVE METABOLIC PANEL (12/15/2017 10:00 PM) Component Value Ref Range Sodium 137 137 - 147 MMOL/L Potassium 4.7 3.5 - 5.1 MMOL/L Chloride 109 98 - 110 MMOL/L Glucose 287 (H) 70 - 100 MG/DL Blood Urea Nitrogen 26 (H) 7 - 25 MG/DL Creatinine 1.49 (H) 0.4 - 1.00 MG/DL Calcium 8.3 (L) 8.5 - 10.6 MG/DL Total Protein 4.8 (L) 6.0 - 8.0 G/DL Total Bilirubin 0.5 0.3 - 1.2 MG/DL Albumin 2.9 (L) 3.5 - 5.0 G/DL Alk Phosphatase 59 25 - 110 U/L AST (SGOT) 33 7 - 40 U/L CO2 18 (L) 21 - 30 MMOL/L ALT (SGPT) 15 7 - 56 U/L Anion Gap 10 3 - 12 eGFR Non 37 (L) >60 mL/min Comment: The eGFR is not validated for use in drug dosing adjustments.Continue to use estimated creatinine clearance per dosing reference text.Please contact the Clinical Pharmacist for questions. eGFR 44 (L) >60 mL/min Comment: The eGFR is not validated for use in drug dosing adjustments.Continue to use estimated creatinine clearance per dosing reference text.Please contact the Clinical Pharmacist for questions. Specimen Performing Laboratory Blood [facility] [address] [place] [address] * CBC (12/15/2017 10:00 PM) Component Value Ref Range White Blood Cells 19.6 (H) 4.5 - 11.0 K/UL RBC 3.21 (L) 4.0 - 5.0 M/UL Hemoglobin 9.9 (L) 12.0 - 15.0 GM/DL Hematocrit 28.9 (L) 36 - 45 % MCV 89.8 80 - 100 FL MCH 30.6 26 - 34 PG MCHC 34.1 32.0 - 36.0 G/DL RDW 15.1 (H) 11 - 15 % Platelet Count 190 150 - 400 K/UL MPV 7.7 7 - 11 FL Specimen Performing Laboratory Blood [facility] [address] [place] [address] * IONIZED CALCIUM (12/15/2017 10:00 PM) Component Value Ref Range Ionized Calcium 1.23 1.0 - 1.3 MMOL/L Specimen Performing Laboratory Blood [facility] [address] [place] [address] * BLOOD GASES, ARTERIAL (12/15/2017 10:00 PM) Component Value Ref Range pH-Arterial 7.31 (L) 7.35 - 7.45 pCO2-Arterial 38 35 - 45 MMHG pO2-Arterial 95 80 - 100 MMHG Base Deficit-Arterial 6.4 MMOL/L O2 Sat-Arterial 97.6 95 - 99 % Gtugevyedcl-UOW-Bxj 19.2 (L) 21 - 28 MMOL/L Specimen Performing Laboratory Blood, arterial - Blood [facility] [address] [place] [address] * POC GLUCOSE (12/15/2017 8:35 PM) Component Value Ref Range Glucose, POC 272 (H) 70 - 100 MG/DL Specimen Performing Laboratory [facility] [address] [place] [address] * CBC (12/15/2017 7:26 PM) Component Value Ref Range White Blood Cells 18.8 (H) 4.5 - 11.0 K/UL RBC 3.28 (L) 4.0 - 5.0 M/UL Hemoglobin 9.9 (L) 12.0 - 15.0 GM/DL Hematocrit 29.9 (L) 36 - 45 % MCV 91.2 80 - 100 FL MCH 30.2 26 - 34 PG MCHC 33.1 32.0 - 36.0 G/DL RDW 14.6 11 - 15 % Platelet Count 187 150 - 400 K/UL MPV 7.4 7 - 11 FL Specimen Performing Laboratory [facility] [address] [place] [address] * TRANSFUSE RBC'S BLEEDING PT OR EXCHANGE TRANSFUSION (12/15/2017 6:54 PM) Specimen Performing Laboratory Blood * POC GLUCOSE (12/15/2017 5:32 PM) Component Value Ref Range Glucose, POC 255 (H) 70 - 100 MG/DL Specimen Performing Laboratory [facility] [address] [place] [address] * TEG WITH KAOLIN (12/15/2017 3:25 PM) Component Value Ref Range MA Kaolin 68.4 50.0 - 70.0 MM R Kaolin 4.7 3.0 - 9.0 MIN RK Kaolin 5.8 4.0 - 12.0 MIN K Kaolin 1.1 1.0 - 3.0 MIN Angle Kaolin 74.0 55 - 75 DEG Lysis30 2.4 0.0 - 8.0 % Specimen Performing Laboratory Blood [facility] * TRANSFUSE RBC'S BLEEDING PT OR EXCHANGE TRANSFUSION (12/15/2017 2:16 PM) Specimen Performing Laboratory Blood * TRANSFUSE RBC'S BLEEDING PT OR EXCHANGE TRANSFUSION (12/15/2017 2:16 PM) Specimen Performing Laboratory Blood * BASIC METABOLIC PANEL (12/15/2017 1:45 PM) Component Value Ref Range Sodium 141 137 - 147 MMOL/L Potassium 3.6 3.5 - 5.1 MMOL/L Chloride 119 (H) 98 - 110 MMOL/L CO2 10 (L) 21 - 30 MMOL/L Anion Gap 12 3 - 12 Glucose 208 (H) 70 - 100 MG/DL Blood Urea Nitrogen 15 7 - 25 MG/DL Creatinine 0.69 0.4 - 1.00 MG/DL Calcium 6.0 (L) 8.5 - 10.6 MG/DL eGFR Non [...] Specimen Performing Laboratory [facility] [address] [place] [address] * CBC (12/15/2017 1:45 PM) Component Value Ref Range White Blood Cells 17.8 (H) 4.5 - 11.0 K/UL RBC 2.51 (L) 4.0 - 5.0 M/UL Hemoglobin 7.8 (L) 12.0 - 15.0 GM/DL Hematocrit 22.9 (L) 36 - 45 % MCV 91.3 80 - 100 FL MCH 31.1 26 - 34 PG MCHC 34.1 32.0 - 36.0 G/DL RDW 14.9 11 - 15 % Platelet Count 138 (L) 150 - 400 K/UL MPV 7.3 7 - 11 FL Specimen Performing Laboratory Blood [facility] [address] [place], [place] [id number] * POC GLUCOSE (12/15/2017 8:54 AM) Component Value Ref Range Glucose, POC 177 (H) 70 - 100 MG/DL Specimen Performing Laboratory [facility] [address] [place], [place] [id number] * BLOOD GASES, ARTERIAL (12/15/2017 8:45 AM) Component Value Ref Range pH-Arterial 7.36 7.35 - 7.45 pCO2-Arterial 22 (L) 35 - 45 MMHG pO2-Arterial 136 (H) 80 - 100 MMHG Base Deficit-Arterial 12.5 MMOL/L O2 Sat-Arterial 99.4 (H) 95 - 99 % Bogouudymkz-EQS-Mtn 14.5 (L) 21 - 28 MMOL/L Specimen Performing Laboratory Blood, arterial - Blood [facility] [address] [place], [place] [id number] * POC GLUCOSE (12/15/2017 6:45 AM) Component Value Ref Range Glucose, POC 206 (H) 70 - 100 MG/DL Specimen Performing Laboratory [facility] [address] [place], [place] [id number] * CBC (12/15/2017 5:40 AM) Component Value Ref Range White Blood Cells 16.9 (H) 4.5 - 11.0 K/UL RBC 2.74 (L) 4.0 - 5.0 M/UL Hemoglobin 8.4 (L) 12.0 - 15.0 GM/DL Hematocrit 25.0 (L) 36 - 45 % MCV 91.4 80 - 100 FL MCH 30.6 26 - 34 PG MCHC 33.4 32.0 - 36.0 G/DL RDW 15.0 11 - 15 % Platelet Count 165 150 - 400 K/UL MPV 7.3 7 - 11 FL Specimen Performing Laboratory [facility] [address] [place] [address] 66[address] * BASIC METABOLIC PANEL (12/15/2017 4:40 AM) Component Value Ref Range Sodium 141 137 - 147 MMOL/L Potassium 4.2 3.5 - 5.1 MMOL/L Chloride 111 (H) 98 - 110 MMOL/L CO2 15 (L) 21 - 30 MMOL/L Anion Gap 15 (H) 3 - 12 Glucose 198 (H) 70 - 100 MG/DL Blood Urea Nitrogen 13 7 - 25 MG/DL Creatinine 0.55 0.4 - 1.00 MG/DL Calcium 7.8 (L) 8.5 - 10.6 MG/DL eGFR Non [...] questions. Specimen Performing Laboratory [facility] [address] [place] [address] 16746 * IONIZED CALCIUM (12/15/2017 4:40 AM) Component Value Ref Range Ionized Calcium 1.11 1.0 - 1.3 MMOL/L Specimen Performing Laboratory Blood [facility] [address] [place] [address] 64182 * PHOSPHORUS (12/15/2017 4:40 AM) Component Value Ref Range Phosphorus 3.2 2.0 - 4.0 MG/DL Specimen Performing Laboratory [facility] [address] [place] [address] 21697 * MAGNESIUM (12/15/2017 4:40 AM) Component Value Ref Range Magnesium 2.0 1.6 - 2.6 mg/dL Specimen Performing Laboratory Blood [facility] [address] [place] [address] 99687 * LACTIC ACID(LACTATE) (12/14/2017 11:20 PM) Component Value Ref Range Lactic Acid 0.8 0.5 - 2.0 MMOL/L Specimen Performing Laboratory [facility] [address] [place] [address] 64837 * BLOOD GASES, ARTERIAL (12/14/2017 11:20 PM) Component Value Ref Range pH-Arterial 7.34 (L) 7.35 - 7.45 pCO2-Arterial 34 (L) 35 - 45 MMHG pO2-Arterial 77 (L) 80 - 100 MMHG Base Deficit-Arterial 7.1 MMOL/L O2 Sat-Arterial 95.3 95 - 99 % Invkcsdhxmx-QYW-Drl 18.6 (L) 21 - 28 MMOL/L Specimen Performing Laboratory Blood, arterial - Blood [facility] [address] [place], [place] [id number] * PHOSPHORUS (12/14/2017 11:20 PM) Component Value Ref Range Phosphorus 3.5 2.0 - 4.0 MG/DL Specimen Performing Laboratory [facility] [address] [place], [place] [id number] * MAGNESIUM (12/14/2017 11:20 PM) Component Value Ref Range Magnesium 2.1 1.6 - 2.6 mg/dL Specimen Performing Laboratory [facility] [address] [place], [place] [id number] * BASIC METABOLIC PANEL (12/14/2017 11:20 PM) Component Value Ref Range Sodium 140 137 - 147 MMOL/L Potassium 4.2 3.5 - 5.1 MMOL/L Chloride 111 (H) 98 - 110 MMOL/L CO2 16 (L) 21 - 30 MMOL/L Anion Gap 13 (H) 3 - 12 Glucose 214 (H) 70 - 100 MG/DL Blood Urea Nitrogen 12 7 - 25 MG/DL Creatinine 0.54 0.4 - 1.00 MG/DL Calcium 7.6 (L) 8.5 - 10.6 MG/DL eGFR Non [...] Specimen Performing Laboratory [facility] [address] [place], [place] [id number] * CBC (12/14/2017 11:20 PM) Component Value Ref Range White Blood Cells 18.2 (H) 4.5 - 11.0 K/UL RBC 2.99 (L) 4.0 - 5.0 M/UL Hemoglobin 9.2 (L) 12.0 - 15.0 GM/DL Hematocrit 27.2 (L) 36 - 45 % MCV 91.0 80 - 100 FL MCH 30.8 26 - 34 PG MCHC 33.9 32.0 - 36.0 G/DL RDW 14.7 11 - 15 % Platelet Count 205 150 - 400 K/UL MPV 7.4 7 - 11 FL Specimen Performing Laboratory [facility] [address] [place], [place] [id number] * POC GLUCOSE (12/14/2017 9:22 PM) Component Value Ref Range Glucose, POC 199 (H) 70 - 100 MG/DL Specimen Performing Laboratory [facility] [address] [place] [address] * CBC AND DIFF (12/14/2017 6:42 PM) Component Value Ref Range White Blood Cells 13.3 (H) 4.5 - 11.0 K/UL RBC 3.21 (L) 4.0 - 5.0 M/UL Hemoglobin 9.8 (L) 12.0 - 15.0 GM/DL Hematocrit 29.3 (L) 36 - 45 % MCV 91.2 80 - 100 FL MCH 30.5 26 - 34 PG MCHC 33.5 32.0 - 36.0 G/DL RDW 14.6 11 - 15 % Platelet Count 225 150 - 400 K/UL MPV 7.5 7 - 11 FL Neutrophils 86 (H) 41 - 77 % Lymphocytes 6 (L) 24 - 44 % Monocytes 8 4 - 12 % Eosinophils 0 0 - 5 % Basophils 0 0 - 2 % Absolute Neutrophil Count 11.40 (H) 1.8 - 7.0 K/UL Absolute Lymph Count 0.80 (L) 1.0 - 4.8 K/UL Absolute Monocyte Count 1.10 (H) 0 - 0.80 K/UL Absolute Eosinophil Count 0.00 0 - 0.45 K/UL Absolute Basophil Count 0.00 0 - 0.20 K/UL Specimen Performing Laboratory [facility] [address] [place] [address] 11324 * PHOSPHORUS (12/14/2017 6:42 PM) Component Value Ref Range Phosphorus 4.0 2.0 - 4.0 MG/DL Specimen Performing Laboratory [facility] [address] [place] [id number] * MAGNESIUM (12/14/2017 6:42 PM) Component Value Ref Range Magnesium 2.0 1.6 - 2.6 mg/dL Specimen Performing Laboratory Blood [facility] [address] [place] [id number] * BASIC METABOLIC PANEL (12/14/2017 6:42 PM) Component Value Ref Range Sodium 141 137 - 147 MMOL/L Potassium 4.4 3.5 - 5.1 MMOL/L Chloride 113 (H) 98 - 110 MMOL/L CO2 15 (L) 21 - 30 MMOL/L Anion Gap 13 (H) 3 - 12 Glucose 250 (H) 70 - 100 MG/DL Blood Urea Nitrogen 11 7 - 25 MG/DL Creatinine 0.67 0.4 - 1.00 MG/DL Calcium 7.0 (L) 8.5 - 10.6 MG/DL eGFR Non [...] questions. Specimen Performing Laboratory Blood [facility] [address] [place] [id number] * LACTIC ACID(LACTATE) (12/14/2017 6:42 PM) Component Value Ref Range Lactic Acid 1.5 0.5 - 2.0 MMOL/L Specimen Performing Laboratory Blood MAIN LAB [address] [place] [id number] * PTT (APTT) (12/14/2017 6:42 PM) Component Value Ref Range APTT 23.7 21.0 - 39.0 SEC Specimen Performing Laboratory Blood MAIN LAB [address] [place] [id number] * BLOOD GASES, ARTERIAL (12/14/2017 6:41 PM) Component Value Ref Range pH-Arterial 7.32 (L) 7.35 - 7.45 pCO2-Arterial 33 (L) 35 - 45 MMHG pO2-Arterial 89 80 - 100 MMHG Base Deficit-Arterial 8.2 MMOL/L O2 Sat-Arterial 97.0 95 - 99 % Dfcxeozeznw-XUW-Muk 17.8 (L) 21 - 28 MMOL/L Specimen Performing Laboratory Blood, arterial - Blood MAIN LAB [address] [place] [address] * IONIZED CALCIUM (12/14/2017 6:41 PM) Component Value Ref Range Ionized Calcium 1.14 1.0 - 1.3 MMOL/L Specimen Performing Laboratory Blood MAIN LAB [address] [place] [address] * POTASSIUM, BG (12/14/2017 4:51 PM) Component Value Ref Range Potassium 4.9 3.5 - 5.1 MMOL/L Specimen Performing Laboratory Blood MAIN LAB [address] [place] [address] * SODIUM,BG (12/14/2017 4:51 PM) Component Value Ref Range Sodium 139 137 - 147 MMOL/L Specimen Performing Laboratory Blood MAIN LAB [address] [place] [address] * IONIZED CALCIUM,BG (12/14/2017 4:51 PM) Component Value Ref Range Ionized Calcium 1.12 1.0 - 1.3 MMOL/L Specimen Performing Laboratory Blood MAIN LAB [address] [place] [address] * GLUCOSE,BG (12/14/2017 4:51 PM) Component Value Ref Range Glucose 263 (H) 70 - 100 MG/DL Specimen Performing Laboratory Blood MAIN LAB [address] [place] [address] * BLOOD GASES, ARTERIAL (12/14/2017 4:51 PM) Component Value Ref Range pH-Arterial 7.32 (L) 7.35 - 7.45 pCO2-Arterial 37 35 - 45 MMHG pO2-Arterial 159 (H) 80 - 100 MMHG Base Deficit-Arterial 6.4 MMOL/L O2 Sat-Arterial 99.4 (H) 95 - 99 % Ouihrfctijf-HUU-Zrw 19.2 (L) 21 - 28 MMOL/L Specimen Performing Laboratory Blood, arterial - Blood MAIN LAB [address] [place] [address] * HEMOGLOBIN & HEMATOCRIT, BG (12/14/2017 4:51 PM) Component Value Ref Range Hemoglobin BG 12.0 12.0 - 15.0 GM/DL Hematocrit BG 37.1 36 - 45 % Specimen Performing Laboratory Blood MAIN LAB [address] [place] [address] * DELIVER & TRANSFUSE RED BLOOD CELLS (INTRAOP ONLY) (12/14/2017 4:37 PM) Specimen Performing Laboratory Blood * DELIVER & TRANSFUSE RED BLOOD CELLS (INTRAOP ONLY) (12/14/2017 4:26 PM) Specimen Performing Laboratory Blood * DELIVER & TRANSFUSE RED BLOOD CELLS (INTRAOP ONLY) (12/14/2017 4:26 PM) Specimen Performing Laboratory Blood * POTASSIUM, BG (12/14/2017 3:45 PM) Component Value Ref Range Potassium 4.7 3.5 - 5.1 MMOL/L Specimen Performing Laboratory Blood MAIN LAB [address] [place] [address] * SODIUM,BG (12/14/2017 3:45 PM) Component Value Ref Range Sodium 138 137 - 147 MMOL/L Specimen Performing Laboratory Blood MAIN LAB [address] [place] [address] * IONIZED CALCIUM,BG (12/14/2017 3:45 PM) Component Value Ref Range Ionized Calcium 1.12 1.0 - 1.3 MMOL/L Specimen Performing Laboratory Blood MAIN LAB [address] [place] [address] * GLUCOSE,BG (12/14/2017 3:45 PM) Component Value Ref Range Glucose 278 (H) 70 - 100 MG/DL Specimen Performing Laboratory Blood MAIN LAB [address] [place] [address] * BLOOD GASES, ARTERIAL (12/14/2017 3:45 PM) Component Value Ref Range pH-Arterial 7.30 (L) 7.35 - 7.45 pCO2-Arterial 45 35 - 45 MMHG pO2-Arterial 143 (H) 80 - 100 MMHG Base Deficit-Arterial 4.3 MMOL/L O2 Sat-Arterial 99.0 95 - 99 % Hivoetheykp-IUP-Hgs 20.8 (L) 21 - 28 MMOL/L Specimen Performing Laboratory Blood, arterial - Blood MAIN LAB [address] [place] [address] * HEMOGLOBIN & HEMATOCRIT, BG (12/14/2017 3:45 PM) Component Value Ref Range Hemoglobin BG 9.7 (L) 12.0 - 15.0 GM/DL Hematocrit BG 30.2 (L) 36 - 45 % Specimen Performing Laboratory Blood MAIN LAB [address] [place] [address] * DELIVER & TRANSFUSE RED BLOOD CELLS (INTRAOP ONLY) (12/14/2017 3:31 PM) Specimen Performing Laboratory Blood * LACTIC ACID (BG - RAPID LACTATE) (12/14/2017 2:34 PM) Component Value Ref Range Lactic Acid,BG 0.8 0.5 - 2.0 MMOL/L Specimen Performing Laboratory Blood MAIN LAB [address] [place] [address] * POTASSIUM, BG (12/14/2017 2:34 PM) Component Value Ref Range Potassium 4.4 3.5 - 5.1 MMOL/L Specimen Performing Laboratory Blood MAIN LAB [address] [place] [address] * SODIUM,BG (12/14/2017 2:34 PM) Component Value Ref Range Sodium 137 137 - 147 MMOL/L Specimen Performing Laboratory Blood MAIN LAB [address] [place] [address] * IONIZED CALCIUM,BG (12/14/2017 2:34 PM) Component Value Ref Range Ionized Calcium 1.12 1.0 - 1.3 MMOL/L Specimen Performing Laboratory Blood MAIN LAB [address] [place] [address] * GLUCOSE,BG (12/14/2017 2:34 PM) Component Value Ref Range Glucose 244 (H) 70 - 100 MG/DL Specimen Performing Laboratory Blood MAIN LAB [address] [place] [address] * BLOOD GASES, ARTERIAL (12/14/2017 2:34 PM) Component Value Ref Range pH-Arterial 7.34 (L) 7.35 - 7.45 pCO2-Arterial 43 35 - 45 MMHG pO2-Arterial 140 (H) 80 - 100 MMHG Base Deficit-Arterial 2.5 MMOL/L O2 Sat-Arterial 99.1 (H) 95 - 99 % Ojibromxuas-EZO-Oqs 22.4 21 - 28 MMOL/L Specimen Performing Laboratory Blood, arterial - Blood MAIN LAB [address] [place] [address] * HEMOGLOBIN & HEMATOCRIT, BG (12/14/2017 2:34 PM) Component Value Ref Range Hemoglobin BG 8.5 (L) 12.0 - 15.0 GM/DL Hematocrit BG 26.5 (L) 36 - 45 % Specimen Performing Laboratory Blood MAIN LAB [address] [place] [address] * LACTIC ACID (BG - RAPID LACTATE) (12/14/2017 1:25 PM) Component Value Ref Range Lactic Acid,BG 1.0 0.5 - 2.0 MMOL/L Specimen Performing Laboratory MAIN LAB [address] [place], [place] [id number] * POTASSIUM, BG (12/14/2017 1:25 PM) Component Value Ref Range Potassium 4.5 3.5 - 5.1 MMOL/L Specimen Performing Laboratory Blood MAIN LAB [address] [place], [place] [id number] * SODIUM,BG (12/14/2017 1:25 PM) Component Value Ref Range Sodium 139 137 - 147 MMOL/L Specimen Performing Laboratory Blood MAIN LAB [address] [place], [place] [id number] * IONIZED CALCIUM,BG (12/14/2017 1:25 PM) Component Value Ref Range Ionized Calcium 1.13 1.0 - 1.3 MMOL/L Specimen Performing Laboratory Blood [facility] [address] [place] [address] * GLUCOSE,BG (12/14/2017 1:25 PM) Component Value Ref Range Glucose 236 (H) 70 - 100 MG/DL Specimen Performing Laboratory Blood [facility] [address] [place], [place] [id number] * BLOOD GASES, ARTERIAL (12/14/2017 1:25 PM) Component Value Ref Range pH-Arterial 7.35 7.35 - 7.45 pCO2-Arterial 42 35 - 45 MMHG pO2-Arterial 146 (H) 80 - 100 MMHG Base Deficit-Arterial 2.4 MMOL/L O2 Sat-Arterial 99.2 (H) 95 - 99 % Qbbleoyuxyq-SGY-Cnw 22.4 21 - 28 MMOL/L Specimen Performing Laboratory Blood, arterial - Blood [facility] [address] [place], [place] [id number] * HEMOGLOBIN & HEMATOCRIT, BG (12/14/2017 1:25 PM) Component Value Ref Range Hemoglobin BG 9.2 (L) 12.0 - 15.0 GM/DL Hematocrit BG 28.6 (L) 36 - 45 % Specimen Performing Laboratory Blood [facility] [address] [place], [place] [id number] * POTASSIUM, BG (12/14/2017 11:44 AM) Component Value Ref Range Potassium 4.6 3.5 - 5.1 MMOL/L Specimen Performing Laboratory Blood MAIN LAB [address] [place], [place] [id number] * SODIUM,BG (12/14/2017 11:44 AM) Component Value Ref Range Sodium 140 137 - 147 MMOL/L Specimen Performing Laboratory Blood MAIN LAB [address] [place] [address] * IONIZED CALCIUM,BG (12/14/2017 11:44 AM) Component Value Ref Range Ionized Calcium 1.17 1.0 - 1.3 MMOL/L Specimen Performing Laboratory Blood MAIN LAB [address] [place] [address] * GLUCOSE,BG (12/14/2017 11:44 AM) Component Value Ref Range Glucose 241 (H) 70 - 100 MG/DL Specimen Performing Laboratory Blood MAIN LAB [address] [place] [address] * BLOOD GASES, ARTERIAL (12/14/2017 11:44 AM) Component Value Ref Range pH-Arterial 7.37 7.35 - 7.45 pCO2-Arterial 43 35 - 45 MMHG pO2-Arterial 127 (H) 80 - 100 MMHG Base Deficit-Arterial 0.7 MMOL/L O2 Sat-Arterial 98.8 95 - 99 % Kxaqwmwgmgp-WBT-Uyi 23.8 21 - 28 MMOL/L Specimen Performing Laboratory Blood, arterial - Blood MAIN LAB [address] [place] [address] * HEMOGLOBIN & HEMATOCRIT, BG (12/14/2017 11:44 AM) Component Value Ref Range Hemoglobin BG 10.0 (L) 12.0 - 15.0 GM/DL Hematocrit BG 31.0 (L) 36 - 45 % Specimen Performing Laboratory Blood MAIN LAB [address] [place] [address] * SURGICAL PATHOLOGY (12/14/2017 10:23 AM) Component Value Ref Range PATHOLOGY REPORT [facility] [email or web address] Department of Pathology and Laboratory Medicine [address] [place] [address] Surgical Pathology Office:[phone]:[phone] SURGICAL PATHOLOGY REPORT NAME: BEATA KAISER SURG PATH #: [id number] MR #: [id number] SPECIMEN CLASS: SR BILLING #: [id number] ALT ID #:LOCATION: [id number] DATE OF PROCEDURE: 12/14/2017 AGE:52 SEX: F DATE RECEIVED: 12/14/2017 : 1965TIME RECEIVED:10:23 PHYSICIAN: TAMIKO LUTHER DATE OF REPORT: 12/22/2017 COPY TO: SPENCER PURCELL CHARLI DATE OF PRINTIN12/22/2017 ################################################## ###################### Final Diagnosis: A. Skeletal muscle, "paraspinous muscle margin", biopsy: Negative for malignancy B. Skeletal muscle, "abdominal muscle margin", biopsy: Negative for malignancy C. Skeletal muscle, psoas margin", biopsy: Negative for malignancy D. Bone and soft tissue, "pubis margin", biopsy: Positive for chondrosarcoma E. Bone and cartilage, "pubis margin #2", biopsy: Small focus with atypical cells identified on frozen section; consistent with chondrosarcoma F. Cartilaginous tissue, "vein contents", biopsy: Fragments of chondrosarcoma G. Bone and bone marrow, "sacrum for frozen", biopsy: Negative for malignancy. H. Bone/cartilage, "left hemipelvectomy", left hemipelvectomy: Chondrosarcoma, high-grade, with extensive extension into the soft tissue. See comment I. Cartilage and soft tissue, "additional tissue, left hemipelvectomy", excision: Positive for chondrosarcoma, high grade Comment: The chondrosarcoma shows areas of intermediate grade (grade 2) morphology as well as areas of marked hypercellularity and nuclear atypia consistent with high grade morphology (grade 3). No areas of dedifferentiation are identified. BONE: Resection CAP Version: [id number] Specimen: Specify bone involved (if known): Entire left hemipelvis from the lateral aspect of the sacrum through to the pubis Procedure: Radical resection: Left hemipelvectomy and jamil-sacrectomy Tumor Site: Pelvis (specify bone, if known): Entire left hemipelvis from the lateral aspect of the sacrum through to the pubis (sacrum, ileum and pubis) Tumor Location and Extent (select all that apply): Cortical Medullary cavity Surface Tumor extension into soft tissue Tumor thrombi identified in large veins (refer to operative report), specimen F. Tumor Size: Greatest dimension: 19.9 cm Additional dimensions: 11.5 x 7.2 cm Histologic Type (World Health Organization [WHO] classification of bone tumors): Specify: Chondrosarcoma Mitotic Rate: Specify: 6/10 high-power torres (1 HPF x 400=0.1734 mm2; X40 objective; most proliferative area) Necrosis (macroscopic or microscopic): Present Extent: Minimal Histologic Grade: G3: Poorly differentiated, high grade Margins: Margins uninvolved by sarcoma Distance of sarcoma from closest margin: 2.5 cm Specify margin (if known): Soft tissue, muscle in skin [Margin(s) involved by sarcoma: Pubis margin on two consecutive frozen sections (parts D and E) positive for chondrosarcoma. However, on the main resection specimen, the bone margin at the pubic symphysis (block H11) is negative for malignancy. This is verified with Dr. Luther] Lymphovascular Invasion: Present (specimen F, venous tumor thrombus) Regional Lymph Nodes No lymph nodes submitted or found Pathologic Stage Classification (pTNM, AJCC 8th Edition) pT4b NX Mn/a Note: Reporting of p T, pN, and (when applicable) pM categories is based on information available to the pathologist at the time the report is issued. Pelvis pT4b: Tumor encasement of external iliac vessels or presence of gross tumor thrombus in major pelvic vessels Regional Lymph Nodes (pN) pNX: Regional lymph nodes cannot be assessed# #Note: Because of the rarity of lymph node involvement in bone sarcomas, the designation NX may not be appropriate, and cases should be considered NO unless clinical node involvement clearly is evident. Distant Metastasis (pM) (required only if confirmed pathologically in this case) pMn/a: Not Applicable Ancillary Studies (required only if applicable) Immunohistochemistry Not performed Cytogenetics: Not performed Molecular Pathology: Not performed Radiographic Findings Specify: Refer to radiology reports in O2 Preresection Treatment (select all that apply) No known preresection therapy Treatment Effect (select all that apply) No known presurgical therapy Attestation: By this signature, I attest that I have personally formulated the final interpretation expressed in this report and that the above diagnosis is based upon my examination of the slides and/or other material indicated in this report. +++ +++ kurt/12/15/2017 ################################################## ###################### Material Received: A: paraspinous muscle margin B: abdominal muscle margin C: psoas margin D: pubis margin E: pubis margin #2 F: vein contents G: sacrum for frozen H: left hemipelvectomy I: additional tissue, left hemipelvectomy History: 52-year-old female with a history of pelvic mass. Gross Description: A. Received fresh labeled patient's name "paraspinous muscle margin" is a 1.2 x 0.4 x 0.2 cm fragment of red-pink tissue. The specimen is submitted entirely in cassette A1FS for frozen and permanent sectioning. (eef) B. Received fresh labeled the patient's name "abdominal muscle margin" is a 2.1 x 1.4 x 0.4 cm fragment of red-pink tissue. The specimen is submitted entirely in cassette B1FS for frozen and permanent sectioning. (eef) C. Received fresh labeled with the patient's name and "psoas margin" is a 0.8 x 0.6 x 0.2 cm portion of red-brown soft tissue. The specimen is submitted entirely in cassette C1FS for frozen and permanent sections. (sc) D. Received fresh labeled with the patient's name and "pubis margin" is a 0.5 x 0.4 x 0.4 cm portion of gallardo-white soft tissue and scant bone fragments. The specimen is submitted entirely in cassette D1FS for frozen and permanent sections. (sc) E. Received fresh labeled with the patient's name and "pubis margin #2" is a 1.6 x 1.0 x 0.5 cm portion of gallardo-white firm soft tissue. The specimen is serially sectioned and submitted entirely in cassette E1FS for frozen and permanent sections. (sc) F. Received fresh labeled with the patient's name and "vein contents for frozen" is a 3.8 x 3.0 x 0.7 cm aggregate of gallardo-pink soft tissue fragments. Central Service Tech sections of the specimen are submitted in cassettes F1FS and F2FS. The remaining tissue is serially sectioned and submitted entirely in cassette F3. (sc) G. Received fresh labeled with the patient's name and "sacrum for frozen" is a 1.3 x 0.7 x 0.4 cm portion of pink-gallardo soft tissue. The specimen is submitted entirely in cassette G1FS for frozen and permanent sections. (sc) H.Fixative: Fresh Labeled: "left hemipelvectomy" Specimen received: Hemipelvectomy Measurements: foot 23.9 x 7.5 x 5.2, leg from knee to heel and 39.9 x 12.9 x 9.8, remainder of leg from resection margin to knee 59.9 x 21.7 x 15.2 cm. There are five toes with attached toenails are grossly unremarkable. Skin: Gallardo-white and smooth at the posterior aspect there is a 8.5 x 1.2 cm scar held together by black sutures. The skin surrounding the scar (measuring 16.9 x 7.2) is a slightly purple and bruised. No other abnormalities are identified Tumor size: There is a 16.5 x 10.9 x 6.2 cm area of hemorrhage deep to the scar, within the subcutaneous tissue and adipose tissue. This hemorrhagic area is 3.5 cm from the proximal margin. Adjacent to the hemorrhagic cavity there is a white firm tumor that measures 19.9 x 11.5 x 7.2 cm Tumor location: Approximately 10% of the tumor is located within the soft tissue and muscle. The remainder of the tumor grossly involves the ileum, lateral pubis, and acetabulum Tumor consistency: Gallardo white firm and gritty Tumor grossly does not involve the femur but does involve the soft tissue, muscle and pelvic bone Tumor from resection margin: 2.5 cm from the soft tissue, muscle and skin margin Tissue submitted to Biospec[facility] Repository Core Facility: No Central Service Tech sections of the specimen are submitted as follows: H1 Central Service Tech section of skin scar and surrounding gallardo purple bruised-appearing skin. H2 Central Service Tech proximal skin, soft tissue and muscle margin. H3-H6 Central Service Tech sections from the hemorrhagic cavity within the subcutaneous and adipose tissue. H7-H10 Tumor within muscle and soft tissue. H11 Bone margin at pubic symphysis (placed in decalcification solution prior to processing). M02-N35Tnczi within pubis bone adjacent to acetabulum (H12 is placed in decalcification solution prior to processing). H 14-V18Scxog within the ilium (H15 is placed in decalcification solution prior to processing). H16 Tumor two gluteus medius. O39-H90Spjfbsmdaz pharmaceutical representative sections throughout the tumor.(brm) I. Received in formalin labeled with the patient's name and "additional tissue, left hemipelvectomy" is a 5.9 x 4.2 x 1.5 cm aggregate of gallardo-pink soft tissue fragments and bone. These tissue fragments are not oriented. Central Service Tech sections are submitted in cassettes I1 and I2 (I2 is placed in decalcification solution prior to processing). Also in the container is a 9.5 x 7.2 x 3.1 cm red-brown portion of muscle and attached yellow adipose tissue. The specimen is serially sectioned to reveal red-brown unremarkable muscle and yellow unremarkable adipose tissue. Central Service Tech sections from throughout the specimen are submitted in cassettes I3-I5. (brm) ar/12/14/2017 Intraoperative Consultation: A1FS, skeletal muscle, "paraspinous muscle margin", biopsy: Negative for malignancy. B1FS, skeletal muscle, "abdominal muscle margin", biopsy: Negative for malignancy. C1FS, skeletal muscle, "psoas margin", biopsy: Negative for malignancy. D1FS, bone and soft tissue, "pubis margin", biopsy: Focal atypical cells present. E1FS, bone and soft tissue, "pubis margin #2", biopsy: Microscopic focus suspicious for chondrosarcoma. H3MY-K5TG, vein contents, "vein contents", biopsy: Chondrosarcoma G1FS, bone and bone marrow, "sacrum for frozen", biopsy: Negative for malignancy. Tomy Sandoval MD, PhD Specimen Performing Laboratory [facility] RESULTS * BASIC METABOLIC PANEL (12/14/2017 6:12 AM) Component Value Ref Range Sodium 141 137 - 147 MMOL/L Potassium 4.1 3.5 - 5.1 MMOL/L Chloride 106 98 - 110 MMOL/L CO2 27 21 - 30 MMOL/L Anion Gap 8 3 - 12 Glucose 141 (H) 70 - 100 MG/DL Blood Urea Nitrogen 9 7 - 25 MG/DL Creatinine 0.84 0.4 - 1.00 MG/DL Calcium 9.4 8.5 - 10.6 MG/DL eGFR Non >60 [...] questions. Specimen Performing Laboratory Blood MAIN LAB [address] [place] [id number] * CBC (12/14/2017 6:12 AM) Component Value Ref Range White Blood Cells 7.3 4.5 - 11.0 K/UL RBC 4.21 4.0 - 5.0 M/UL Hemoglobin 12.7 12.0 - 15.0 GM/DL Hematocrit 36.7 36 - 45 % MCV 87.2 80 - 100 FL MCH 30.3 26 - 34 PG MCHC 34.7 32.0 - 36.0 G/DL RDW 14.0 11 - 15 % Platelet Count 275 150 - 400 K/UL MPV 7.7 7 - 11 FL Specimen Performing Laboratory Blood MAIN LAB [address] [place] [id number] * PTT (APTT) (12/14/2017 6:12 AM) Component Value Ref Range APTT 29.3 21.0 - 39.0 SEC Specimen Performing Laboratory Blood MAIN LAB [address] [place] [address] * PTT (APTT) (12/13/2017 8:49 PM) Component Value Ref Range APTT 95.1 (H) 21.0 - 39.0 SEC Specimen Performing Laboratory Blood MAIN LAB [address] [place] [address] * PTT (APTT) (12/13/2017 11:30 AM) Component Value Ref Range APTT 38.7 21.0 - 39.0 SEC Specimen Performing Laboratory Blood MAIN LAB [address] [place] [address] * TYPE & CROSSMATCH (12/13/2017 11:17 AM) Component Value Ref Range Units Ordered 8 Crossmatch Expires 12/16/2017 Record Check FOUND ABO/RH(D) A POS Antibody Screen NEG Electronic Crossmatch YES Unit Number [id number] Blood Component Type RBC,ADSOL,LEUKO REDUCED Unit Division 0 Status OF Unit TRANSFUSED Transfusion Status OK TO TRANSFUSE Crossmatch Result COMPATIBLE,ELECTRONIC Unit Number [id number] Blood Component Type RBC,ADSOL,LEUKO REDUCED Unit Division 0 Status OF Unit TRANSFUSED Transfusion Status OK TO TRANSFUSE Crossmatch Result COMPATIBLE,ELECTRONIC Unit Number [id number] Blood Component Type RBC,ADSOL,LEUKO REDUCED Unit Division 0 Status OF Unit TRANSFUSED Transfusion Status OK TO TRANSFUSE Crossmatch Result COMPATIBLE,ELECTRONIC Unit Number [id number] Blood Component Type RBC,ADSOL,LEUKO REDUCED Unit Division 0 Status OF Unit REL FROM ALLOC Transfusion Status OK TO TRANSFUSE Crossmatch Result COMPATIBLE,ELECTRONIC Unit Number [id number] Blood Component Type RBC,ADSOL,LEUKO REDUCED Unit Division 0 Status OF Unit TRANSFUSED Transfusion Status OK TO TRANSFUSE Crossmatch Result COMPATIBLE,ELECTRONIC Unit Number [id number] Blood Component Type RBC,ADSOL,LEUKO REDUCED Unit Division 0 Status OF Unit REL FROM ALLOC Transfusion Status OK TO TRANSFUSE Crossmatch Result COMPATIBLE,ELECTRONIC Unit Number [id number] Blood Component Type RBC,ADSOL,LEUKO REDUCED Unit Division 0 Status OF Unit TRANSFUSED Transfusion Status OK TO TRANSFUSE Crossmatch Result COMPATIBLE,ELECTRONIC Unit Number [id number] Blood Component Type RBC,ADSOL,LEUKO REDUCED,2ND CONT. Unit Division 0 Status OF Unit REL FROM ALLOC Transfusion Status OK TO TRANSFUSE Crossmatch Result COMPATIBLE,ELECTRONIC Unit Number [id number] Blood Component Type RBC,ADSOL,LEUKO REDUCED,2ND CONT. Unit Division 0 Status OF Unit TRANSFUSED Transfusion Status OK TO TRANSFUSE Crossmatch Result COMPATIBLE,ELECTRONIC Specimen Performing Laboratory Blood [facility] [address] [place] [address] * BASIC METABOLIC PANEL (12/13/2017 11:17 AM) Component Value Ref Range Sodium 140 137 - 147 MMOL/L Potassium 4.0 3.5 - 5.1 MMOL/L Chloride 104 98 - 110 MMOL/L CO2 26 21 - 30 MMOL/L Anion Gap 10 3 - 12 Glucose 161 (H) 70 - 100 MG/DL Blood Urea Nitrogen 13 7 - 25 MG/DL Creatinine 0.80 0.4 - 1.00 MG/DL Calcium 9.5 8.5 - 10.6 MG/DL eGFR Non >60 [...] Performing Laboratory Blood [facility] [address] [place] [address] * CBC (12/13/2017 11:17 AM) Component Value Ref Range White Blood Cells 7.0 4.5 - 11.0 K/UL RBC 3.84 (L) 4.0 - 5.0 M/UL Hemoglobin 11.7 (L) 12.0 - 15.0 GM/DL Hematocrit 33.6 (L) 36 - 45 % MCV 87.5 80 - 100 FL MCH 30.5 26 - 34 PG MCHC 34.9 32.0 - 36.0 G/DL RDW 13.6 11 - 15 % Platelet Count 293 150 - 400 K/UL MPV 7.5 7 - 11 FL Specimen Performing Laboratory Blood [facility] [address] [place] [address] in this encounter Visit Diagnoses Diagnosis 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 Admitting Diagnoses Diagnosis Pelvic mass - Pelvic mass [R19.00] Abdominal or pelvic swelling, mass or lump, unspecified site Pelvic mass in female Administered Medications Medication Order MAR Action Action Date Dose Rate Site acetaminophen (TYLENOL) tablet 1,000 mg Given 01/13/2018 1,000 mg 1,000 mg, Oral, EVERY 8 HOURS, First 20:55 CDT dose on Wed01/04/18 at 1330, Until Discontinued, Acetaminophen not to exceed 4g per 24 hours from all sources. Given 01/14/2018 1,000 mg 05:57 CDT Given 01/14/2018 1,000 mg 13:38 CDT alum/mag hydroxide/simeth (MYLANTA, Given 01/09/2018 30 mL MAALOX PLUS) oral suspension 30 mL 15:07 CDT 30 mL, Oral, EVERY 6 HOURS PRN, Starting 12/20/17 at 0850, Until Wed01/14/18 at 1559, Indigestion/Heartburn Given 01/11/2018 30 mL 20:24 CDT Given 01/12/2018 30 mL 23:19 CDT buPROPion (WELLBUTRIN) tablet 100 mg Given 01/13/2018 100 mg 100 mg, Oral, THREE TIMES DAILY, First 20:56 CDT dose on Wed12/21/17 at 1500, Until Discontinued Given 01/14/2018 100 mg 08:08 CDT Given 01/14/2018 100 mg 14:55 CDT busPIRone (BUSPAR) tablet 30 mg Given 01/13/2018 30 mg 30 mg, Oral, TWICE DAILY, First dose on 20:56 CDT Christy 01/13/18 at 2100, Until Discontinued Given 01/14/2018 30 mg 08:08 CDT calcium carbonate (TUMS) chew tablet Given 12/22/2017 1,000 mg 500-1,000 mg 13:24 CDT 500-1,000 mg, Oral, EVERY 4 HOURS PRN, Starting Wed12/22/17 at 1313, Until Wed01/14/18 at 1559, Indigestion/Heartburn, Each tab delivers 200mg elemental calcium. Given 12/25/2017 1,000 mg 13:49 CDT Given 01/13/2018 1,000 mg 14:09 CDT collagenase (SANTYL) topical ointment Given 01/13/2018 Topical, DAILY, First dose on Wed 11:49 CDT 01/13/18 at 1230, Until Discontinued, Apply to left lower abdominal wound daily. See wound care instructions or wound team note. Given 01/14/2018 08:20 CDT diazePAM (VALIUM) tablet 2.5-5 mg Given 01/11/2018 2.5 mg 2.5-5 mg, Oral, EVERY 6 HOURS PRN, 01:06 CDT Starting Wed12/19/17 at 1030, Until Wed01/14/18 at 1559, Spasms Given 01/13/2018 5 mg 23:55 CDT Given 01/14/2018 5 mg 14:55 CDT diphenhydrAMINE (BENADRYL) capsule 25 mg Given 01/09/2018 25 mg 25 mg, Oral, EVERY 6 HOURS PRN, 03:16 CDT Starting 12/13/17 at 1028, Until Wed01/14/18 at 1559, Insomnia, Itching PO ertapenem (INVANZ) IVP 1 g Given 01/12/2018 1 g 1 g, Intravenous, 10 mL, Administer over 14:12 CDT 5 Minutes, EVERY 24 HOURS, First dose on Wed01/10/18 at 1715, Until Discontinued, Reconstitute each 1 g vial with 10 mL sterile water for injection, administer IV-Push over 5 minutes Given 01/13/2018 1 g 11:49 CDT Given 01/14/2018 1 g 11:57 CDT gabapentin (NEURONTIN) capsule 900 mg Given 01/13/2018 900 mg 900 mg, Oral, EVERY 8 HOURS, First dose 21:00 CDT on Wed01/11/18 at 1400, Until Discontinued Given 01/14/2018 900 mg 05:57 CDT Given 01/14/2018 900 mg 13:38 CDT HYDROmorphone injection (DILAUDID) Given 01/12/2018 1 mg injection 1 mg 09:38 CDT 1 mg, Intravenous, THREE TIMES WEEKLY (Once per day on Wed), First dose on Wed01/12/18 at 0900, Until Discontinued, To be used only with wound vac changes on MWF Given 01/14/2018 1 mg 09:34 CDT insulin aspart U-100 (NOVOLOG FLEXPEN) Given 01/13/2018 2 Units Arm, Left injection PEN 0-14 Units 03:41 CDT 0-14 Units, Subcutaneous, FIVE TIMES DAILY, First dose on Wed01/03/18 at 2100, Until Discontinued, -POC glucose 140-180mg/dL at , , administer 2 units insulin, at 21, 03* administer 0 units. -POC glucose 181-220mg/dL at , , administer 4 units insulin, at 21, 03* administer 2 units. -POC glucose 221-260mg/dL at , administer 6 units insulin, at 21, 03* administer 4 units. -POC glucose 261-300mg/dL at , , administer 8 units insulin, at 21, 03* administer 6 units. -POC glucose 301-350mg/dL at , , administer 10 units insulin, at 21, 03* administer 8 units. -POC glucose 351-400mg/dL at , , administer 12 units insulin, at 21, 03* administer 10 units. -POC glucose >400mg/dL at , , administer 14 units insulin, at 21, 03* administer 12 units. *only if ordered 5x's daily For POCT glucose >350mg/dL give correction bolus and recheck POCT glucose in 2 hours. If POCT glucose at 2 hours >300mg/dL call physician for further orders. For patients who are not eating meals, continue to administer the appropriate correction factor. NOTE: This is a HIGH ALERT Medication. Given 01/14/2018 2 Units Abdominal 02:56 CDT Tissue Given 01/14/2018 2 Units Deltoid, 08:12 CDT Left insulin aspart U-100 (NOVOLOG FLEXPEN) Given 01/13/2018 8 Units Arm, Left injection PEN 8 Units 18:26 CDT 8 Units, Subcutaneous, THREE TIMES DAILY AFTER MEALS, First dose on Wed01/13/18 at 1900, Until Discontinued, - Post Meal [...] This is a HIGH ALERT Medication. Given 01/14/2018 8 Units Deltoid, 08:13 CDT Left Given 01/14/2018 8 Units Arm, Left 13:40 CDT insulin glargine (LANTUS SOLOSTAR, Given 01/11/2018 22 Units Arm, Left BASAGLAR) injection PEN 22 Units 21:49 CDT 22 Units, Subcutaneous, AT BEDTIME DAILY, First dose on Wed01/11/18 at 2100, Until Discontinued, Continue if NPO. DO NOT mix with other insulins -- Do not mix with other insulins -- NOTE: This is a HIGH ALERT Medication. Given 01/12/2018 22 Units Abdominal 22:56 CDT Tissue Given 01/13/2018 22 Units Abdominal 21:04 CDT Tissue insulin NPH (HUMULIN N KwikPen) Given 01/12/2018 30 Units Abdominal injection PEN 30 Units 22:55 CDT Tissue 30 Units, Subcutaneous, DAILY, First dose on Wed01/12/18 at 2200, Until Discontinued, Prior to nocturnal TF, hold if TF are held or planned to be held within 2 hours of the dose of NPH NOTE: This is a HIGH ALERT Medication. Given 01/13/2018 30 Units Abdominal 22:05 CDT Tissue iopamidol 300 (ISOVUE-300) 61 % Given 01/10/2018 300 mL Other injection 09:45 CDT INTRA-PROCEDURE MED, Starting Wed01/10/18 at 0945, Until Wed01/10/18 at 1227, Intra-op lactobacillus rhamnosus GG (CULTURELLE) Given 01/13/2018 1 capsule 15 billion cell capsule 1 capsule 09:05 CDT 1 capsule, Oral, TWICE DAILY WITH MEALS, First dose on Wed12/25/17 at 0800, Until Discontinued Given 01/13/2018 1 capsule 16:15 CDT Given 01/14/2018 1 capsule 08:08 CDT levothyroxine (SYNTHROID) tablet 175 mcg Given 01/12/2018 175 mcg 175 mcg, Oral, DAILY BEFORE BREAKFAST, 05:46 CDT First dose on Wed12/22/17 at 0700, Until Discontinued, Give 1 hour before a meal. If patient is receiving tube feedings, hold tube feed 1hr before and 1hr after dose. Given 01/13/2018 175 mcg 06:27 CDT Given 01/14/2018 175 mcg 06:00 CDT lidocaine (LIDODERM) 5 % topical patch 2 Patch/Topica 01/06/2018 2 patches Abdominal patch l Applied 09:00 CDT Tissue 2 patch, Topical, Administer over 12 Hours, DAILY, First dose on Wed12/31/17 at 1130, Until Discontinued, Apply patches once daily to area around ostomy bag and incision. Apply only to intact skin. Patch may be cut to fit affected area. Patch/Topical Applied 01/07/2018 2 patches Abdominal 09:46 CDT Tissue Patch/Topical Applied 01/08/2018 2 patches Abdominal 09:30 CDT Tissue lidocaine 2% (20 mg/mL) injection 50 mL 50 mL, SEE ADMIN INSTRUCTIONS, THREE TIMES WEEKLY (Once per day on Wed), First dose on Wed01/12/18 at 0900, Until Discontinued, To be used for wound vac changes as needed. Use 50 ml to infiltrate wound vac sponge prior to wound team wound vac changes for pain control. micafungin (MYCAMINE) 100 mg in sodium Given - New 01/12/2018 100 mg 100 mL/hr chloride 0.9% (NS) 100 mL IVPB (MB+) Bag 14:55 CDT 100 mg, Intravenous, 100 mL, Administer over 60 Minutes, at 100 mL/hr, EVERY 24 HOURS, First dose on Christy 12/30/17 at 1745, Until Discontinued, PROTECT FROM LIGHT Given - New Bag 01/13/2018 100 mg 100 mL/hr 13:06 CDT Given - New Bag 01/14/2018 100 mg 100 mL/hr Right Arm 13:43 CDT nortriptyline (PAMELOR) capsule 25 mg Given 01/13/2018 25 mg 25 mg, Oral, AT BEDTIME DAILY, First 20:56 CDT dose on Christy 01/13/18 at 2100, Until Discontinued ondansetron (ZOFRAN) injection 4 mg Given 01/05/2018 4 mg 4 mg, Intravenous, EVERY 6 HOURS PRN, 22:27 CDT Starting Wed12/13/17 at 1028, Until Wed01/14/18 at 1559, Nausea/Vomiting Injectable ortho irrigation 1 L bottle Given 01/10/2018 2,000 mL Hip, Left 1,000 mL, INTRA-PROCEDURE MED, Starting 10:30 CDT Wed01/10/18 at 1030, Until Wed01/10/18 at 1227, Intra-op oxyCODONE (ROXICODONE, OXY-IR) tablet Given 01/14/2018 20 mg 10-20 mg 02:55 CDT 10-20 mg, Oral, EVERY 3 HOURS PRN, Starting Wed12/31/17 at 1030, Until Wed01/14/18 at 1559, Pain PO Given 01/14/2018 20 mg 05:57 CDT Given 01/14/2018 20 mg 11:55 CDT oxyCODONE SR (OXYCONTIN) tablet 20 mg Given 01/13/2018 20 mg 20 mg, Oral, TWICE DAILY, First dose on 09:05 CDT 01/11/18 at 2100, Until Discontinued, DO NOT crush, break, or chew. NOTE: This is a HIGH ALERT Medication. Given 01/13/2018 20 mg 22:08 CDT Given 01/14/2018 20 mg 09:11 CDT pancrelipase 20,000 Units/ sodium bicarbonate 650 mg(#) (KU CLOG DESTROYER) for occluded feeding tube cap 1 capsule 1 capsule, Feeding Tube, NEEDED (IT APPLICATIONS DEVELOPER FROM RX), Starting 12/27/17 at 1631, Until Wed01/14/18 at 1559, Other..., Occluded Feeding Tube, 1. Open one KU CLOG DESTROYER CAPSULE (pancrelipase 20,000 units/ sodium bicarbonate 650 mg) and pour contents into mortar cup. 2. Dissolve in 5 - 10 ml sterile water. This will take ~ 1-2 minutes, with stirring required. Some sediment will be present (likely from capsule ingredients). 3. Once dissolved, let solution sit for 1-2 minutes, allowing sediment to fall to bottom of mortar cup. 4. Draw enzyme/bicarbonate solution into oral syringe (avoid sediment as best possible). 5. Instill enzyme solution under light pressure, and use a light "back and forth" motion with plunger to help dislodge the clog. 6. Clamp the tube for 5-15 minutes, and then try to aspirate or flush with warm sterile water. May repeat x 1. Notify physician if tube remains occluded following administration. pantoprazole DR (PROTONIX) tablet 40 mg Given 01/11/2018 40 mg 40 mg, Oral, DAILY, First dose on Wed 21:45 CDT 12/22/17 at 2100, Until Discontinued, Do not crush or chew tablet. Given 01/12/2018 40 mg 21:17 CDT Given 01/13/2018 40 mg 20:57 CDT rivaroxaban (XARELTO) tablet 20 mg Given 01/12/2018 20 mg 20 mg, Oral, DAILY WITH BREAKFAST, First 08:44 CDT dose on Wed12/20/17 at 0945, Until Discontinued, Administer with food. NOTE: This is a HIGH ALERT Medication. Given 01/13/2018 20 mg 09:05 CDT Given 01/14/2018 20 mg 08:08 CDT simethicone (MYLICON) chew tablet 80 mg Given 01/05/2018 80 mg 80 mg, Oral, EVERY 6 HOURS PRN, 13:33 CDT Starting Wed01/05/18 at 1325, Until Wed01/14/18 at 1559, Flatulence Given 01/05/2018 80 mg 20:46 CDT vitamin A & D topical ointment Given 01/13/2018 Topical, TWICE DAILY, First dose on Sun 12:00 CDT 12/26/17 at 2100, Until Discontinued, Apply thin layer of ointment to Labia wound and left lower abdomen. Given 01/13/2018 21:00 CDT Given 01/14/2018 08:15 CDT in this encounter
--- OUTSIDE RECORDS SUMMARY | 2018-03-06 22:16 | XMS REPORT | Encounter Summary ---
Author Author [facility] Organization [facility] Address Unknown Phone Unavailable Care Team Providers Care Medical Director Name Role Phone Della Cuellar MD PCP Encounter Details Date Type Department Care Team Description 01/06/2018 Procedure Pass Ortho/Fam Med [address] [place] [address] Social History Tobacco Use Types Packs/Day Years [...]
--- OUTSIDE RECORDS SUMMARY | 2018-03-06 22:16 | XMS REPORT | Encounter Summary ---
Author Author [facility] Organization [facility] Address Unknown Phone Unavailable Care Team Providers Care Print Color Operator Name Role Phone Della Cuellar MD PCP Encounter Details Date Type Department Care Team Description 01/07/2018 Prep for Case ADMITTING Adrienne Zarate MD Chondrosarcoma ( HCC) 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
--- OUTSIDE RECORDS SUMMARY | 2018-03-06 22:16 | XMS REPORT | Encounter Summary ---
Author Author [facility] Organization [facility] Address Unknown Phone Unavailable Care Team Providers Care Military Science Instructor Name Role Phone Della Cuellar MD PCP Encounter Details Date Type Department Care Team Description 12/30/2017 Procedure Pass [facility] [address] [place] [id number] Social History Tobacco Use Types Packs/Day Years [...]
--- OUTSIDE RECORDS SUMMARY | 2018-03-06 22:16 | XMS REPORT | Encounter Summary ---
Author Author [facility] Organization [facility] Address Unknown Phone Unavailable Care Team Providers Care Dental Internship Name Role Phone Della Cuellar MD PCP Encounter Details Date Type Department Care Team Description 12/31/2017 Hosp Case Management - Julia Garcia Documentation Work Only [address] [place] [address] Social History Tobacco Use Types Packs/Day Years [...] as of this encounter Progress Notes * Julia Edward - 12/31/2017 2:18 PM CDT Patient Name:Beata Kaiser Date of : 1965 Insurance Company: [facility] Policy#: [id number] Phone#: [phone] Phone number for Pre-certification: [phone] Spoke with: Feli in the customer service deparment on 12/31 at 1233. Call reference#: [id number] Effective date of policy#: 09/20/2017 Termination Date#: n/a Calendar Year:yes If no, Benefit Period: n/a DME: Covered 100% since max out of pocket is met. Requires pre-certification? YES General Benefits: Deductible:$ 500 Amount Met: YES Co-pay: n/'a Co-Insurance: 20% Annual Max Out of Pocket: $2000 Amount Met of Max Out of Pocket: YES Inpatient Rehab Benefits: Covered 100% since max out of pocket is met. If max out of pocket had not been met then this would be subject to the deductible & co-ins Number of days per year is based on medical necessity. Requires Pre-certification: YES Outpatient Therapy Benefits: Covered 100% since max out of pocket is met. If max out of pocket had not been met then this would be subject to the deductible & co-ins Number of days per year is based on medical necessity. Pre-certification Required: no Home Health Therapy Benefits: Covered 100% Subject to the deductible/co-insurance: no Co-pay/visit: no Number of visits per year are based on medical necessity. Pre-certification Required: yes [facility] Facility: Covered 100% since max out of pocket is met. If max out of pocket had not been met then this would be subject to the deductible & co-ins Number of days per year based on medical necessity. Pre-certification Required: YES in this encounter Plan of Treatment Date Type Specialty Care Team Description 03/01/2018 Procedure Pass Cardiothoracic Surgery as of this encounter Visit Diagnoses Not on filein this encounter
[2018-03-06 22:17] LABS: ALANINE AMINOTRANSFERASE 68 U/L (0-55); ALBUMIN 2.3 GM/DL (3.2-4.5); ALKALINE PHOSPHATASE 186 U/L (40-136); BILIRUBIN,TOTAL 0.2 MG/DL (0.1-1.0); BUN/CREATININE RATIO 13; CALCIUM 8.6 MG/DL (8.5-10.1); CARBON DIOXIDE 23 MMOL/L (21-32); CHLORIDE 103 MMOL/L (98-107); CREATININE SERUM 0.77 MG/DL (0.60-1.30); GFR ESTIMATED > 60; GLUCOSE 113 MG/DL (70-105); POTASSIUM 4.5 MMOL/L (3.6-5.0); SODIUM 137 MMOL/L (135-145); TOTAL PROTEIN 5.5 GM/DL (6.4-8.2)
--- OUTSIDE RECORDS SUMMARY | 2018-03-06 22:24 | XMS REPORT | Encounter Summary ---
Author Author [facility] Organization [facility] Address Unknown Phone Unavailable Care Team Providers Care Water Chemist Name Role Phone Della Cuellar MD PCP Reason for Visit * Auth/Cert Status Reason Specialty Diagnoses / Referred By Referred To Procedures Contact Contact Diagnoses Pelvic mass Pelvic mass [R19.00] Pelvic mass in female P rocedures LA INTERPELVIABDOMI NAL AMPUTATION JAMIL PELVECTOMY Encounter Details Date Type Department Care Team Description 12/30/2017 Surgery CA Operating Room Aimee Mccollum DO COLOSTOMY DIVERTING LOOP, [address] [place] [address] MS 2005 LYSIS OF ADHESIONS, [place], [place] [id number] Social History Tobacco Use Types Packs/Day Years [...] 4:30 PM) Call the Orthopedic clinic at [phone] AFTER BUSINESS HOURS AND WEEKENDS Call [phone] and ask the rough and truing machine operator to page the on-call Orthopedic Resident. Discharging attending physician: TAMIKO LUTHER [[id number]] Diabetic Diet Recommend high protein diet for [...] home, you can call a dietitian at [phone]. Tube Feeding Formula: Isosource 1.5 Schedule: Continuous [...] Wednesday wound vac changes. Tunneled Catheter Line Jail Care Instructions: The bandage over the catheter [...] Take 1 capsule via feeding tube PRN (Technology Engineer from Rx) ( Occluded Feeding Tube). PRESCRIPTION [...] as indicated above. Adrienne Zarate MD Pager [phone] 01/16/2018 cc: Primary Care Physician: Verified Referring [...] 32 gauge x bedtime. Use with insulin " pen needle injections. levothyroxine (SYNTHROID) Take 175 [...] 03/02/2018 Units/ sodium bicarbonate feeding tube PRN (Technology Engineer 650 mg(#) (KU CLOG from Rx) [...] complete: Yes Report called and given to clinical rehabilitation aide. * Adrienne Zarate MD - 01/14/2018 [...] recs- recommend [facility] [place] -Psych, DIRECTOR OF INSTRUMENTAL MUSIC psych and psychology consults for coping, depression - appreciate assistance -Endocrine consult for blood sugar management - appreciate recs -ID consult - Ertapenem, micafungin -Nutrition following for optimization -General Surgery consult - colostomy 12/30 Dispo: Plan for DC today to [facility] Adrienne Zarate MD [id number] * Sofía Centeno - 01/14/2018 2:03 PM CDT I have reviewed the students documentation and agree with it. Tita Centeno MSN/MHA RN CCRN Heel Builder - [facility] * Chari Moon - 01/14/2018 2:00 PM [...] Cognitive Status: Alert;Cooperative Persons Present: Father;Mother (Supervising GARAGE DOOR TECHNICIAN, GARAGE DOOR TECHNICIAN student) Pain: Patient complains of pain Pain [...] patient throughout the physical therapy session. * Emma See RD - 01/14/2018 12:47 PM CDT CLINICAL NUTRITION Clinical Nutrition Follow-Up Summary Nutrition Assessment of Patient: Malnutrition Assessment: Adequately nourished prior to admission Current Oral Intake: Adequate Estimated Calorie Needs: 1660 (30 kcals/kg per DBW 55.3 kg due to large surgical wound) Estimated Protein Needs: 100-120 (1.5-2.2 g/kg desired wt.) Oral Diet Order: Diabetic 3032-8540 Kcal/day (60 g Carb/meal, 30 g Carb/HS snack ) Oral Supplement: [place] Breakfast Essentials No Sugar Added Current EN Order: Nutren 1.5 @ 75ml/hr x's 6 hrs from 6131-1850, 3 ProSource/ day (At goal will provide: [...] for dc today to rehab. Recommendation: Continue 2810-1009 Consistent Carb Diet. Continue Nutren 1.5 @ [...] Throughout Stay Status: Ongoing Emma See, RD #[id number]. * Sofía Centeno - 01/14/2018 11:54 AM CDT I have reviewed the students documentation and agree with it. Tita Centeno MSN/MHA RN CCRN Heel Builder - [facility] * Nani Lynch, - 01/14/2018 11:30 AM CDT Formatting of [...] Lynch DO Division of Infectious Diseases Pager [phone] Interval History Afebrile, vitals stable. Feeling "ok" [...] 20,000 Units/ sodium bicarbonate 650 mg(#) PRN (Technology Engineer from Rx), simethicone Q6H PRN Physical Examination [...] Pertinent radiology reviewed Nani Lynch DO Pager [phone] ID * Nani Mcelroy RN - 01/14/2018 [...] Moist;Red;[place];Yellow 01/14/2018 11:00 AM Surrounding Skin Assessment Excoriated;[place];Edema 01/14/2018 11:00 AM Wound Drainage Amount Large [...] BSN Wound Ostomy Nursing Consult Service Office: [phone] Pager: [phone] After hours Wound/Ostomy team pager : [phone] * Lexus Shirley, OT - 01/14/2018 10:00 AM CDT Formatting of this note may be different from the original. OCCUPATIONAL THERAPY PROGRESS NOTE Patient Name: Beata Kaiser [id number] Admitting Diagnosis: Pelvic mass [R19.00] Pelvic mass [...] tub and ramps. 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 Endocrinology Hospital Follow Up Visit Today's Date: 01/14/2018 Admission Date: 12/13/2017 Assessment: 1. DM type 2 with stress hyperglycemia A1c 6.5 , controlled GARAGE DOOR TECHNICIAN regimen: Metformin thousand milligrams twice a day, jardiance 25 mg daily Hypoglycemic episodes on this regimen: None and not checking blood sugars at home Follows up with for diabetes management: Primary care physician at [facility] Diabetic-complications assessment: Retinopathy: None Peripheral neuropathy: Yes on treatment Autonomic neuropathy: None Nephropathy: None Macrovascular complications: None Risk factor assessment: Last lipid profile - None on file On ACEi/ARB: Yes On Statin: yes 2. Hypothyroidism GARAGE DOOR TECHNICIAN 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 daily TSH 2.1 [...] 20,000 Units/ sodium bicarbonate 650 mg(#) PRN (Technology Engineer from Rx), simethicone Q6H PRN Physical Examination Vital Signs: Last Vital Signs: 24 Hour Range BP: 111/59 (01/14 539) Temp: 37.7 C (99.9 F) (01/14 539) Pulse: 108 (01/14 539) Respirations: 16 PER MINUTE (01/14 539) SpO2: [...] Testing (Last 24 hours) Glucose: (!) 237 (01/14/180) POC Glucose (Download): (!) 144 (01/14/18 0716) [...] 01:40 PM No results found for: FREET3, [id number], THYBINDGLB Kalie Sibley, Endocrine fellow Pager [phone] * Nani Lynch, DO - 01/13/2018 11:34 AM CDT Formatting of [...] Nani Lynch, Division of Infectious Diseases Pager [phone] Interval History Afebrile, vitals stable. ROS - [...] 20,000 Units/ sodium bicarbonate 650 mg(#) PRN (Technology Engineer from Rx), simethicone Q6H PRN Physical Examination [...] Pertinent radiology reviewed Chari Pedro DO Pager [phone] ID fellow * Adrienne Zarate MD - [...] recs- recommend [facility] [place] -Psych, DIRECTOR OF INSTRUMENTAL MUSIC psych and psychology consults for coping, depression - appreciate assistance -Endocrine consult for blood sugar management - appreciate recs -ID consult - Ertapenem, micafungin -Nutrition following for optimization -General Surgery consult - colostomy 12/30 Dispo: Plan for DC Wednesday to Rehab Adrienne Zarate MD [id number] * Lexus Shirley, OT - 01/13/2018 10:59 AM CDT Formatting of this note may be different from the original. OCCUPATIONAL THERAPY PROGRESS NOTE Patient Name: Beata Kaiser Room/Bed: [place] [address] Admitting Diagnosis: Pelvic mass [R19.00] Pelvic mass [...] tub and ramps. 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 Equipment Recommendations: [facility] Additional Information: Recommend ongoing assistance for: Transfers, Bed mobility, Dressing, Bathing, Toileting Therapist: SACHA Nath/Tapan [id number] Date: 01/13/2018 * Arnaldo Delacruz MD - [...] Beata Kaiseris a 52 y.o.female[facility] the following issues: S/p hemipelvectomy for left pelvic chondrosarcoma Impairments: amputation (lower extremity), pain and poor activity tolerance Activity Limitations: grooming, bathing, dressing - lower, toileting, bladder control, transfers, ambulation and stairs Participation Restrictions: unable to return home safely This is a follow up visit from initial consultation performed on 12/27/2017 Beata Kaiser is a 52 yo F who presented to [facility] on 12/13/17 for scheduled left hemipelvectomy [...] mod assist for transfers (slide board) with [facility] coming . Recommendations: The patient continues to demonstrate improved function and activity tolerance with rehab therapies. Recommend acute inpatient rehab when medically stable. Arnaldo Delacruz MD Subjective Beata Kaiser is a 52 y.o. female. She was evaluated transferring (slide board) to [facility] at mod assist X 1. She feels [...] of bed. Pt supine at OT departure. EDI SPECIALIST COGNITIVE EVALUATION SUMMARY PRAGMATICS: BEHAVIOR: AUDITORY COMPREHENSION: [...] 20,000 Units/ sodium bicarbonate 650 mg(#) PRN (Technology Engineer from Rx), simethicone Q6H PRN Objective Vital [...] Stool Occurrence: 1 Oral Diet Order: Diabetic 2915-0755 Kcal/day (60 g Carb/meal, 30 g Carb/HS [...] with stress hyperglycemia A1c 6.5 , controlled GARAGE DOOR TECHNICIAN regimen: Metformin thousand milligrams twice a day, jardiance 25 mg daily Hypoglycemic episodes on this regimen: None and not checking blood sugars at home Follows up with for diabetes management: Primary care physician at [facility] Diabetic-complications assessment: Retinopathy: None Peripheral neuropathy: Yes on treatment Autonomic neuropathy: None Nephropathy: None Macrovascular complications: None Risk factor assessment: Last lipid profile - None on file On ACEi/ARB: Yes On Statin: yes 2. Hypothyroidism GARAGE DOOR TECHNICIAN 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 daily TSH 2.1 [...] 20,000 Units/ sodium bicarbonate 650 mg(#) PRN (Technology Engineer from Rx), simethicone Q6H PRN Physical Examination [...] 01:40 PM No results found for: FREET3, [id number], THYBINDGLB Kalie Sibley, Endocrine fellow Pager [phone] * Lynn Barrera - 01/12/2018 3:40 PM [...] with stress hyperglycemia A1c 6.5 , controlled GARAGE DOOR TECHNICIAN regimen: Metformin thousand milligrams twice a day, jardiance 25 mg daily Hypoglycemic episodes on this regimen: None and not checking blood sugars at home Follows up with for diabetes management: Primary care physician at [facility] Diabetic-complications assessment: Retinopathy: None Peripheral neuropathy: Yes on treatment Autonomic neuropathy: None Nephropathy: None Macrovascular complications: None Risk factor assessment: Last lipid profile - None on file On ACEi/ARB: Yes On Statin: yes 2. Hypothyroidism GARAGE DOOR TECHNICIAN 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 daily TSH 2.1 [...] 20,000 Units/ sodium bicarbonate 650 mg(#) PRN (Technology Engineer from Rx), simethicone Q6H PRN Physical Examination [...] 01:40 PM No results found for: FREET3, [id number], THYBINDGLB Kalie Sibley, Endocrine fellow Pager [phone] * Chari Moon - 01/12/2018 2:08 PM CDT PHYSICAL THERAPY [...] Status: Alert;Cooperative;Oriented Persons Present: Nursing Staff (Supervising GARAGE DOOR TECHNICIAN) Pain: Patient complains of pain Pain Location: [...] Lynch DO Division of Infectious Diseases Pager [phone] Interval History Afebrile, vitals stable. Pt is [...] 20,000 Units/ sodium bicarbonate 650 mg(#) PRN (Technology Engineer from Rx), simethicone Q6H PRN Physical Examination [...] PLTCT 711* 660* 747* Chemistry Recent Labs 01/10/1832901/11/1833901/12/18 0612 NA 135* 136* 138 K 4.1 4.0 4.1 CL 99 101 102 CO2 29 29 29 BUN 16 18 19 CR 0.60 0.61 0.54 GFR >60 >60 >60 GLU 137* 269* 192* CA 8.2* 8.2* 8.1* Microbiology, Radiology and other Diagnostics Review Microbiology data reviewed. Pertinent radiology reviewed Chari Pedro DO Pager [phone] ID fellow * Jasper Betts RN - 01/12/2018 12:35 PM CDT Inpatient Pain Management Nurses - Clinical Excellence Nursing Practice - Follow -Up Primary team [...] Used 2 doses of fentanyl IV 50 kyl=163 mcg ~ 10 mg Please call with questions/concerns. Jasper Betts, MSN, RN- Clinical Nurse Coordinator Pain Management [phone] Team pager [phone] * Pancho De Souza, PhD - 01/12/2018 12:29 PM CDT Formatting of this note may be different from the original. Psychology Consult Service ([phone]) Beata Kaiser is a 52 year-old female [...] 52 year old female. She is from [place] and currently lives in [place]. 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 She is and has 3 children. She currently lives with her family in [place], [place]. MSE: 52 year-old female, supine in [...] questions or concerns. Pancho De Souza, PhD [phone] Licensed Psychologist Department of Psychiatry and Behavioral [...] consult- appreciate recs- recommend [facility] at [place] -Psych, DIRECTOR OF INSTRUMENTAL MUSIC psych and psychology consults for coping, depression - appreciate assistance -Endocrine consult for blood sugar management - appreciate recs -ID consult - Zosyn, micafungin -Nutrition following for optimization -General Surgery consult - colostomy 12/30 Dispo: Plan for likely DC Wednesday to Rehab pending tolerating wound vac changes Adrienne Zarate MD [id number] * Lexus Shirley, OT - 01/12/2018 9:58 AM CDT Formatting of this note may be different from the original. OCCUPATIONAL THERAPY PROGRESS NOTE Patient Name: Beata Kaiser Room/Bed: [id number]/01 Admitting Diagnosis: Pelvic mass [R19.00] Pelvic mass [...] tub and ramps. 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 Equipment Recommendations: [facility] Additional Information: Recommend ongoing assistance for: Transfers, Dressing, Bathing, Toileting Therapist: Lexus Shirley, OTR/L [id number] Date: 01/12/2018 * Adrienne Zarate MD - [...] recs- recommend [facility] [place] -Psych, DIRECTOR OF INSTRUMENTAL MUSIC psych and psychology consults for coping, depression - appreciate assistance -Endocrine consult for blood sugar management - appreciate recs -ID consult - Zosyn, micafungin -Nutrition following for optimization -General Surgery consult - colostomy 12/30 Dispo: Plan for possible DC Wednesday to Rehab pending tolerating wound vac changes Adrienne Zarate MD [id number] * Hugh Quintana MD - 01/11/2018 9:31 [...] between 8am and 3pm on weekends at [phone]. Otherwise, page the residential lawn specialist education department chair. Subjective: Beata Bainsmari Kaiser is seen for routine consult follow [...] alum/mag hydroxide/simeth Q6H PRN 30 mL at 01/11/182023, calcium carbonate Q4H PRN 1,000 mg at [...] Units / sodium bicarbonate 650 mg(#) PRN (Technology Engineer from Rx), simethicone Q6H PRN 80 mg [...] spontaneously Hugh Quintana MD * Nani Lynch, DO - 01/11/2018 3:43 PM CDT Formatting of [...] 20,000 Units/ sodium bicarbonate 650 mg(#) PRN (Technology Engineer from Rx), simethicone Q6H PRN Physical Examination Vital Signs: Last Vital Signs: 24 Hour Range BP: 123/69 (01/11 1359) Temp: 36.4 C (97.6 F) (04/24 1359) Pulse: 98 (01/11 1359) Respirations: 18 [...] PLTCT 626* 711* 660* Chemistry Recent Labs 01/09/1831601/10/18 0330 01/11/18 0340 NA 135* 135* 136* [...] g/kg desired wt.) Oral Diet Order: Diabetic 4051-8309 Kcal/day (60 g Carb/meal, 30 g Carb/HS snack ) Oral Supplement: [place] Breakfast Essentials No Sugar Added Intake (calories) Daily Average : 1332 kilocalories (80% yesterday) Intake (protein) Daily Average : 85 grams (70-85% needs yesterday.) Current EN Order: Nutren 1.5 @ 75ml/hr x's 12 hrs (0754-1045) + 2 Liquid ProSource/day (At goal provides: [...] was given steroid during surgery. Recommendation: Continue 1727-2131 Consistent Carb Diet. Continue SF CIB with [...] Throughout Stay Status: Ongoing Emma See, RD #[id number]. * Lexus Shirley, OT - 01/11/2018 11:52 AM CDT Formatting of this note may be different from the original. OCCUPATIONAL THERAPY PROGRESS NOTE Patient Name: Beata Kaiser Room/Bed: [id number] Admitting Diagnosis: Pelvic mass [R19.00] Pelvic mass [...] tub and ramps. 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 Equipment Recommendations: [facility] Additional Information: Recommend ongoing assistance for: Transfers, Dressing, Bathing, Toileting Therapist: SACHA Nath/Tapan [id number] Date: 01/11/2018 * Linus Pisano MD - 01/11/2018 11:51 AM CDT Formatting of this note may be different from the original. Endocrinology Hospital Follow Up Visit Today's Date: 01/11/2018 Admission Date: 12/13/2017 Assessment: 1. DM type 2 with stress hyperglycemia A1c 6.5 , controlled GARAGE DOOR TECHNICIAN regimen: Metformin thousand milligrams twice a day, jardiance 25 mg daily Hypoglycemic episodes on this regimen: None and not checking blood sugars at home Follows up with for diabetes management: Primary care physician at [facility] Diabetic-complications assessment: Retinopathy: None Peripheral neuropathy: Yes on treatment Autonomic neuropathy: None Nephropathy: None Macrovascular complications: None Risk factor assessment: Last lipid profile - None on file On ACEi/ARB: Yes On Statin: yes 2. Hypothyroidism GARAGE DOOR TECHNICIAN 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 daily TSH 2.1 [...] 20,000 Units/ sodium bicarbonate 650 mg(#) PRN (Technology Engineer from Rx), simethicone Q6H PRN Physical Examination [...] 01:40 PM No results found for: FREET3, [id number], THYBINDGLB Kalie Sibley, Endocrine fellow Pager [phone] * Arnaldo Delacruz MD - 01/11/2018 10:50 [...] Beata Kaiseris a 52 y.o.femaleadmitted to [facility] on [facility]2017with the following issues: S/p hemipelvectomy for left pelvic chondrosarcoma Impairments: amputation (lower extremity), pain and poor activity tolerance Activity Limitations: grooming, bathing, dressing - lower, toileting, bladder control, transfers, ambulation and stairs Participation Restrictions: unable to return home safely This is a follow up visit from initial consultation performed on 12/27/2017 Beata Kaiser is a 52 yo F who presented to [facility] on 12/13/17 for scheduled left hemipelvectomy [...] able to clear buttocks better this day EDI SPECIALIST COGNITIVE EVALUATION SUMMARY PRAGMATICS: BEHAVIOR: AUDITORY COMPREHENSION: [...] capsule 400 mg 400 mg Oral TID (05-01-) gabapentin (NEURONTIN) capsule 800 mg 800 mg [...] Units/ sodium bicarbonate 650 mg(#) PRN ( Technology Engineer from Rx), simethicone Q6H PRN Objective Vital [...] Stool Occurrence: 1 Oral Diet Order: Diabetic 0686-2706 Kcal/day (60 g Carb/meal, 30 g Carb/HS [...] hemipelvectomy Psych: Pleasent mood * Naresh Lynchssshelby Payne DO - 01/10/2018 4:07 PM CDT Formatting [...] Units/ sodium bicarbonate 650 mg(#) PRN ( Technology Engineer from Rx), simethicone Q6H PRN Physical Examination [...] with stress hyperglycemia A1c 6.5 , controlled GARAGE DOOR TECHNICIAN regimen: Metformin thousand milligrams twice a day, jardiance 25 mg daily Hypoglycemic episodes on this regimen: None and not checking blood sugars at home Follows up with for diabetes management: Primary care physician at [facility]-complications assessment: Retinopathy: None Peripheral neuropathy: Yes on treatment Autonomic neuropathy: None Nephropathy: None Macrovascular complications: None Risk factor assessment: Last lipid profile - None on file On ACEi/ARB: Yes On Statin: yes 2. Hypothyroidism GARAGE DOOR TECHNICIAN 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 daily TSH 2.1 [...] Units/ sodium bicarbonate 650 mg(#) PRN ( Technology Engineer from Rx), simethicone Q6H PRN Physical Examination [...] 01:40 PM No results found for: FREET3, [id number], THYBINDGLB Kalie Sibley, Endocrine fellow Pager [phone] * Cassandra Villatoro - 01/10/2018 2:09 PM [...] SANJAY Dumont on unit 43. * Lexus Shirley OT - 01/10/2018 11:49 AM CDT OCCUPATIONAL THERAPY NOTE Patient to OR this date for wound vac and I&D. OT will plan to follow up tomorrow post-operatively. Therapist: Lexus Shirley OTR/Tapan [id number] Date: 01/10/2018 * Adrienne Zarate MD - [...] feeds. NPO for OR -Posted for OR 01/10, consent in chart -Melchor catheter x4 wks [...] recs- recommend [facility] [place] -Psych, DIRECTOR OF INSTRUMENTAL MUSIC psych and psychology consults for coping, depression - appreciate assistance -Endocrine consult for blood sugar management - appreciate recs -ID consult - Zosyn, micafungin -Nutrition following for optimization -General Surgery consult - colostomy 12/30 -Sodium normalizing- discontinue fluid restriction Dispo: Continued drainage, plan for OR today for wound exploration and wound vac placement Adrienne Zarate MD [id number] * Earl Shetty MD - 01/09/2018 1:54 [...] with stress hyperglycemia A1c 6.5 , controlled GARAGE DOOR TECHNICIAN regimen: Metformin thousand milligrams twice a day, jardiance 25 mg daily Hypoglycemic episodes on this regimen: None and not checking blood sugars at home Follows up with for diabetes management: Primary care physician at [facility] Diabetic-complications assessment: Retinopathy: None Peripheral neuropathy: Yes on treatment Autonomic neuropathy: None Nephropathy: None Macrovascular complications: None Risk factor assessment: Last lipid profile - None on file On ACEi/ARB: Yes On Statin: yes 2. Hypothyroidism GARAGE DOOR TECHNICIAN 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 daily TSH 2.1 [...] Units/ sodium bicarbonate 650 mg(#) PRN ( Technology Engineer from Rx), simethicone Q6H PRN Physical Examination [...] s/p left hemipelvectomy Neuro: Alert Recent Labs 01/07/18203401/08/18 0317 01/08/18 0749 01/08/18 1247 01/08/18 1820 01/08/18 21001/09/18 0314 01/09/18 0812 GLUPOC 149* 108* 113* 214* 123* 240* 154* 150* Lab Review Point of Care Testing (Last 24 hours) Glucose: (!) 179 (01/09/18316) POC Glucose (Download): (!) 150 (01/09/18 0812) Recent Labs 01/07/18 03001/08/1832101/09/18316 NA 137 137 135* K 4.3 4.1 4.1 CL 101 101 99 CO2 30 28 29 GAP 6 8 7 BUN 15 17 16 CR 0.65 0.61 0.63 GLU 186* 149* 179* CA 8.2* 8.5 8.1* ALBUMIN 2.2* -- -- Recent Labs 01/07/18 03001/08/18 03201/09/18316 WBC 8.2 9.2 9.0 HGB 8.1* [...] 09:45 AM No results found for: FREET3, [id number], THYBINDGLB Pertinent radiology images viewed. Deonna Diaz [...] Cognitive Status: Alert;Cooperative;Oriented Pain: Patient complains of pain;11/27;Before activity Pain Location: Left;Hip Pain Interventions: Patient [...] Gerald Lund PT, DPT Date: 01/09/2018 * Adrienne Zarate MD - 01/09/2018 10:58 AM CDT [...] Diabetic diet, nocturnal tube feeds. NPO at [place] for OR tomorrow -Posted for OR 01/10 [...] recs- recommend [facility] at [place] -Psych, DIRECTOR OF INSTRUMENTAL MUSIC psych and psychology consults for coping, depression - appreciate assistance -Endocrine consult for blood sugar management - appreciate recs -ID consult - Zosyn, micafungin -Nutrition following for optimization -General Surgery consult - colostomy 12/30 -Sodium normalizing- discontinue fluid restriction Dispo: Continued drainage, plan for OR 01/10 for wound exploration and wound vac placement Adrienne Zarate MD [phone] * Tamiko Luther MD - 01/09/2018 7:35 [...] and she wishes to proceed. * Herminia Gant, AFFILIATE MARKETING COORDINATOR - 01/08/2018 2:47 PM CDT OCCUPATIONAL THERAPY [...] tub and ramps. 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 Equipment Recommendations: [facility] Therapist: HUYEN Schmidt Date: 01/08/2018 * Adrienne [...] instead of SNF, would prefer [facility], DIRECTOR OF INSTRUMENTAL MUSIC psych and psychology consults for coping, depression - appreciate assistance -Endocrine consult for blood sugar management - appreciate recs -ID consult - Zosyn, micafungin -Nutrition following for optimization -General Surgery consult - colostomy 12/30 Dispo: Continue inpatient care, if drainage persists over the weekend then plan for exploration of wound and wound vac placement in OR on 01/11 Adrinene Zarate MD [phone] * Annette Ling RN - 01/07/2018 5:41 [...] atelectasis - 12/20 C. diff negative - 4/5 Bcx 09/21 set group B streptococcus; source [...] will round on Wednesday. Please call ID education department chair in the interim if questions arise. Complexity [...] Units/ sodium bicarbonate 650 mg(#) PRN ( Technology Engineer from Rx), simethicone Q6H PRN Physical Examination Vital Signs: Last Vital Signs: 24 Hour Range BP: 129/74 (01/07 1420) Temp: 36.8 C (98.2 F) (01/07 1420) Pulse: 103 (01/07 1420) Respirations: 16 PER MINUTE (01/07 1420) SpO2: 97 % (01/07 1420) O2 Delivery: None (Room Air) (01/08 1420) BP: (116-129)/(66-74) Temp: [36.5 C (97.7 F)-36.8 [...] catheter Lab Review Hematology Recent Labs 01/05/18 0304 01/06/18 0252 01/07/18 [...] Indy Isabel MD Pager Beeper [phone] * Jsaper Betts RN - 01/07/2018 3:04 PM CDT [...] gabapentin 800 mg PO q 8 hours ([id number]) to increase daily serum concentration and more [...] currently doing. Please call with questions/concerns. Jasper Betts MSN, RN- Clinical Nurse Coordinator Pain Management [phone] Team pager [phone] * Kalie Sibley MBBS - 01/07/2018 2:01 PM CDT Formatting of this note may be different from the original. Endocrinology Hospital Follow Up Visit Today's Date: 01/07/2018 Admission Date: 12/13/2017 Assessment: 1. DM type 2 with stress hyperglycemia A1c 6.5 , controlled GARAGE DOOR TECHNICIAN regimen: Metformin thousand milligrams twice a day, jardiance 25 mg daily Hypoglycemic episodes on this regimen: None and not checking blood sugars at home Follows up with for diabetes management: Primary care physician at [facility] Diabetic-complications assessment: Retinopathy: None Peripheral neuropathy: Yes on treatment Autonomic neuropathy: None Nephropathy: None Macrovascular complications: None Risk factor assessment: Last lipid profile - None on file On ACEi/ARB: Yes On Statin: yes 2. Hypothyroidism GARAGE DOOR TECHNICIAN 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 daily TSH 2.1 [...] Units/ sodium bicarbonate 650 mg(#) PRN ( Technology Engineer from Rx), simethicone Q6H PRN Physical Examination [...] 09:45 AM No results found for: FREET3, [id number], THYBINDGLB Pertinent radiology images viewed. RAMIREZ Soto 01/07/2018 Endocrine Associated attestation - Serenity Concepcion MD - 01/07/2018 4:45 PM CDT Formatting [...] instead of SNF, would prefer [facility], DIRECTOR OF INSTRUMENTAL MUSIC psych and psychology consults for coping, depression - appreciate assistance -Endocrine consult for blood sugar management - appreciate recs -ID consult - Zosyn, micafungin -Nutrition following for optimization -General Surgery consult - colostomy 12/30 Dispo: Continue inpatient care, if drainage persists over the weekend then plan for exploration of wound and wound vac placement in OR on 01/11 Adrienne Zarate MD 3001 * Lexus Shirley, OT - 01/07/2018 11:11 AM CDT Formatting of this note may be different from the original. OCCUPATIONAL THERAPY PROGRESS NOTE Patient Name: Beata Kaiser Room/Bed: [place] [address] Admitting Diagnosis: Pelvic mass [R19.00] Pelvic mass [...] tub and ramps. 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 Equipment Recommendations: [facility] Additional Information: Recommend ongoing assistance for: Transfers, Bed mobility, Dressing, Bathing, Toileting Therapist: Lexus Shirley, LELANDR/L [id number] Date: 01/07/2018 * Jasper Betts RN - 01/07/2018 9:18 AM CDT Inpatient Pain Management Nurses - Clinical [facility] Nursing [facility] - Follow -Up Primary [...] SR 20 mg ~ 20 mg Jasper Betts MSN, RN-BC Clinical Nurse Coordinator Pain Management [phone] Team pager [phone] * Fareed Holcomb MD - 01/07/2018 8:10 [...] sign off at this time. Please page [phone] if you have any questions regarding the [...] Sensory intact. Fareed Holcomb MD Personal Pager: [phone] Team Pager: # [phone] * Indy Isabel MD - 01/06/2018 6:43 [...] 20,000 Units/ sodium bicarbonate 650 mg(#) PRN (Technology Engineer from Rx), simethicone Q6H PRN Physical Examination [...] hospital : 1965 AGE: 52 y.o. ROOM: [place] [address] DOCTOR: Date of Order: 01/06/18 Date of Service: 01/06/18 Services referred for: Prosthetic Eval and Treat: Hip Concert Manager Description of condition/injury, including services:Amputations Size: 1X [...] Status: Alert;Cooperative Persons Present: Sister;Nursing Staff (Supervising GARAGE DOOR TECHNICIAN) Pain: Patient complains of pain Pain Location: [...] non-insulin dependent diabetes mellitus who presented to [facility] on 12/13/17 for scheduled left hemipelvectomy [...] further assistance , the service should page [phone] (24 hours a day/7 days a week) [...] 20,000 Units/ sodium bicarbonate 650 mg(#) PRN (Technology Engineer from Rx), simethicone Q6H PRN Review of Systems: gas and bloating in abdomen Objective: Vital Signs: Last Filed Vital Signs: 24 Hour Range BP: 106/63 (04/19 0953) Temp: 36.6 C (97.9 F) (01/06 953) Pulse: 101 (01/06 953) Respirations: 16 PER MINUTE (01/06 953) SpO2: 97 % (01/06 953) O2 Delivery: None (Room Air) (01/06 953) BP: (106-135)/(51-71) Temp: [36.5 C (97.7 F)-37.6 C (99.7 F)] Pulse: [65-113] Respirations: [16 PER MINUTE] SpO2: [92 %-98 %] O2 Delivery: None (Room Air) Intensity Pain Scale 0-10 (Pain 1): 3 (01/06/1809) Vitals: 12/27/17 0654 12/30/17 0820 01/05/18 0625 [...] Pertinent radiology reviewed. Hugh Salinas MD Pager [phone] * Emma See RD - 01/06/2018 1:19 PM CDT CLINICAL NUTRITION Clinical Nutrition Follow-Up Summary Nutrition Assessment of Patient: Malnutrition Assessment: Adequately nourished prior to admission Current Oral Intake: Marginally Adequate Estimated Calorie Needs: 1660 (30 kcals/kg per DBW 55.3 kg due to large surgical wound) Estimated Protein Needs: 100-120 (1.5-2.2 g/kg desired wt.) Oral Diet Order: Diabetic 2950-8867 Kcal/day (60 g Carb/meal, 30 g Carb/HS snack ) Oral Supplement: [place] Breakfast Essentials No Sugar Added, Protein Powder, TID EN Intake (calories) Daily Average : 1407 kilocalories (85% via EN only over past 3 d avg.(nocturnal only since 01/04) EN Intake (protein) Daily Average : 72 grams (60-72% via EN only over past 3 day avg.) Current EN Order: Nutren 1.5 @ 75ml/hr x's 12 hrs (7890-7329) + 2 Liquid ProSource/day (At goal provides: [...] noted as tender and distended, firm per vice president compliance. CT completed this morning with no note [...] to floor RD on 01/03. Recommendation: Continue [phone] Consistent Carb Diet. Please encourage SUGER FREE [...] breakdown Time Frame: Throughout Stay Emma See, RD #[id number]. * Kalie Sibley MBBS - 01/06/2018 1:12 PM CDT Formatting of this note may be different from the original. Endocrinology Hospital Follow Up Visit Today's Date: 01/06/2018 Admission Date: 12/13/2017 Assessment: 1. DM type 2 with stress hyperglycemia A1c 6.5 , controlled GARAGE DOOR TECHNICIAN regimen: Metformin thousand milligrams twice a day, jardiance 25 mg daily Hypoglycemic episodes on this regimen: None and not checking blood sugars at home Follows up with for diabetes management: Primary care physician at [facility] Diabetic-complications assessment: Retinopathy: None Peripheral neuropathy: Yes on treatment Autonomic neuropathy: None Nephropathy: None Macrovascular complications: None Risk factor assessment: Last lipid profile - None on file On ACEi/ARB: Yes On Statin: yes 2. Hypothyroidism GARAGE DOOR TECHNICIAN 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 daily TSH 2.1 [...] 20,000 Units/ sodium bicarbonate 650 mg(#) PRN (Technology Engineer from Rx), simethicone Q6H PRN Physical Examination [...] s/p left hemipelvectomy Neuro: Alert Recent Labs 01/04/18205718 0244 01/05/18 0752 01/05/18 1222 01/05/18 1733 [...] 09:45 AM No results found for: FREET3, [id number], THYBINDGLB Pertinent radiology images viewed. RAMIREZ Soto [...] RE-ASSESSMENT NOTE Patient Name: Beata Kaiser Room/Bed: [place] [address] Admitting Diagnosis: Pelvic mass [R19.00] Pelvic mass [...] tub and ramps. 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 Equipment Recommendations: [facility] Additional Information: Recommend ongoing assistance for: Dressing, Bathing, Toileting, Transfers Therapist: SACHA Nath/T[place] [id number] Date: 01/06/2018 * Adrienne Zarate MD - [...] instead of SNF, would prefer [facility], DIRECTOR OF INSTRUMENTAL MUSIC psych and psychology consults for coping, depression - appreciate assistance -Endocrine consult for blood sugar management - appreciate recs -ID consult - Zosyn, micafungin -Nutrition following for optimization -General Surgery consult - colostomy 12/30 Dispo: Continue inpatient care Adrienne Zarate MD 6323 * Jami Edwards, RN - 01/05/2018 10:30 [...] and with some maceration around distal/posterior wound. [place] in place. Some areas of necrotic tissue [...] Garsia RN, BSN Wound /Ostomy Team Pager [phone] After Hours Wound/Ostomy team pager [phone] * Kalie Sibley MBBS - 01/05/2018 3:01 PM CDT Formatting of this note may be different from the original. Endocrinology Hospital Follow Up Visit Today's Date: 01/05/2018 Admission Date: 12/13/2017 Assessment: 1. DM type 2 with stress hyperglycemia A1c 6.5 , controlled GARAGE DOOR TECHNICIAN regimen: Metformin thousand milligrams twice a day, jardiance 25 mg daily Hypoglycemic episodes on this regimen: None and not checking blood sugars at home Follows up with for diabetes management: Primary care physician at [facility]-complications assessment: Retinopathy: None Peripheral neuropathy: Yes on treatment Autonomic neuropathy: None Nephropathy: None Macrovascular complications: None Risk factor assessment: Last lipid profile - None on file On ACEi/ARB: Yes On Statin: yes 2. Hypothyroidism GARAGE DOOR TECHNICIAN 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 daily TSH 2.1 [...] 20,000 Units/ sodium bicarbonate 650 mg(#) PRN (Technology Engineer from Rx), simethicone Q6H PRN Physical Examination [...] 09:45 AM No results found for: FREET3, [id number], THYBINDGLB Pertinent radiology images viewed. RAMIREZ Soto [...] Cognitive Status: Alert;Cooperative;Oriented Persons Present: Sister (Supervising GARAGE DOOR TECHNICIAN, Wound team staff at beginning of session) [...] her left leg, called the on- call , Dr. Burt to discuss changing her gabapentin [...] non-insulin dependent diabetes mellitus who presented to [facility] on 12/13/17 for scheduled left hemipelvectomy [...] further assistance , the service should page [phone] (24 hours a day/7 days a week) [...] 20,000 Units/ sodium bicarbonate 650 mg(#) PRN (Technology Engineer from Rx) Review of Systems: A 14 [...] 0304) POC Glucose (Download): (!) 265 (01/05/18 9940) Radiology and other Diagnostics Review: Pertinent radiology reviewed. Hugh Salinas MD Pager [phone] * Herminia Gant OTA - 01/05/2018 11:14 [...] instead of SNF, would prefer [facility], DIRECTOR OF INSTRUMENTAL MUSIC psych and psychology consults for coping, depression - appreciate assistance -Endocrine consult for blood sugar management - appreciate recs -ID consult - Zosyn, micafungin -Nutrition following for optimization - TPN (continue for now), tube feeds switched to nocturnal. - Prealbumin 18 and albumin 2.2 -General Surgery consult - colostomy 12/30 Dispo: Continue inpatient care Rebekah 0194 * Jasper Betts, RN - 01/05/2018 9:45 AM CDT Inpatient Pain Management Nurses - [facility] - Follow -Up Discussed patient with Nallely GRACE. Primary team is responsible for entering orders. Suggested Plan for the Day: Continue current pain regimen. Of note gabapentin was changed from 600 mg q6 hours to 800 mg q 12 hours. Suggestions was every 6 hours [phone]. Will continue with new dose today and [...] MSN, RN- Clinical Nurse Coordinator Pain Management [phone] Team pager [phone] * Indy Isabel MD - 01/05/2018 7:01 [...] 20,000 Units/ sodium bicarbonate 650 mg(#) PRN (Technology Engineer from Rx) Physical Examination Vital Signs: Last [...] Recommendations: [facility] Additional Information: Next treatment: Continue tolerance for [...] 20,000 Units/ sodium bicarbonate 650 mg(#) PRN (Technology Engineer from Rx) Physical Examination Vital Signs: Last [...] with stress hyperglycemia A1c 6.5 , controlled GARAGE DOOR TECHNICIAN regimen: Metformin thousand milligrams twice a day, jardiance 25 mg daily Hypoglycemic episodes on this regimen: None and not checking blood sugars at home Follows up with for diabetes management: Primary care physician at [facility] Diabetic-complications assessment: Retinopathy: None Peripheral neuropathy: Yes on treatment Autonomic neuropathy: None Nephropathy: None Macrovascular complications: None Risk factor assessment: Last lipid profile - None on file On ACEi/ARB: Yes On Statin: yes 2. Hypothyroidism GARAGE DOOR TECHNICIAN 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 daily TSH 2.1 [...] 20,000 Units/ sodium bicarbonate 650 mg(#) PRN (Technology Engineer from Rx) Physical Examination Vital Signs: Last [...] 0200 01/03/18 0751 01/03/18 1444 01/03/18 1653 04/16/202001/04/18 0239 01/04/18 0750 GLUPOC 302* 236* 119* [...] 09:45 AM No results found for: FREET3, [id number], THYBINDGLB Pertinent radiology images viewed. Impression: RAMIREZ [...] Agree With My Assessment? Wound Base Assessment Moist;[place];Yellow Surrounding Skin Assessment Intact Wound Site Closure None Wound Drainage Amount None Wound Drainage Description Serosanguineous Wound Dressing Status Intact Wound Dressing and / or Treatment Aquacel AG Number of days: 15 Wounds (NOT for Pressure Injuries) 12/23/17 1345 Left Labia (Active) 12/23/17 1345 Labia Wound Orientation: Left Wound Type: Wound Type:: Wound Description (Comments): Wound Base Assessment Moist;Pale;[place];Yellow Surrounding Skin Assessment Edema Wound Site Closure [...] Right (Active) 12/30/17 1209 Right Stoma Assessment [place], round, protruding Drainage Description [place];Brown Peristomal Skin [...] BSN Wound Ostomy Nursing Consult Service Office: [phone] Pager: [phone] After hours Wound/Ostomy team pager : [phone] * Arnaldo Delacruz MD - 01/04/2018 11:45 [...] Beata Kaiseris a 52 y.o.[facility] the following issues: S/p hemipelvectomy for left pelvic chondrosarcoma Impairments: amputation (lower extremity), pain and poor activity tolerance Activity Limitations: grooming, bathing, dressing - lower, toileting, bladder control, transfers, ambulation and stairs Participation Restrictions: unable to return home safely This is a follow up visit from initial consultation performed on 12/27/2017 Beata Kaiser is a 52 yo F who presented to [facility] on 12/13/17 for scheduled left hemipelvectomy [...] a significant amount of fluid. RN notified. EDI SPECIALIST COGNITIVE EVALUATION SUMMARY PRAGMATICS: BEHAVIOR: AUDITORY COMPREHENSION: [...] 20,000 Units/ sodium bicarbonate 650 mg(#) PRN (Technology Engineer from Rx) Objective Vital Signs: Last Filed [...] instead of SNF, would prefer [facility], DIRECTOR OF INSTRUMENTAL MUSIC psych and psychology consults for coping, depression - appreciate assistance -Endocrine consult for blood sugar management - appreciate recs -ID consult - Zosyn, micafungin -Nutrition following for optimization - TPN (continue for now), tube feeds switched to nocturnal. - Prealbumin and albumin ordered. -General Surgery consult - colostomy 12/30 Dispo: Continue inpatient care César Davis MD [phone] * Chari Moon - 01/04/2018 10:32 AM [...] Status: Alert;Oriented;Cooperative Persons Present: Sister;Nursing Staff (Supervising GARAGE DOOR TECHNICIAN) Pain: Patient complains of pain;During activity Pain [...] issues. Indy Isabel MD Date: 01/03/2018 Pager: [phone] Interval History Afebrile, stable vitals. ROS - [...] 20,000 Units/ sodium bicarbonate 650 mg(#) PRN (Technology Engineer from Rx) Physical Examination Vital Signs: Last [...] Microbiology data reviewed. Chari Pedro DO Pager [phone] ID fellow * Chari Moon - 01/03/2018 [...] PROGRESS NOTE Patient Name: Beata Kaiser Room/Bed: [place] [address] Admitting Diagnosis: Pelvic mass [R19.00] Pelvic mass [...] of house, Stairs, Toileting Therapist: JOHNATHON Olivarez [id number] Date: 01/03/2018 * Kalie Sibley MBBS - 01/03/2018 12:05 PM CDT Formatting of this note may be different from the original. Endocrinology Hospital Follow Up Visit Today's Date: 01/03/2018 Admission Date: 12/13/2017 Assessment: 1. DM type 2 with stress hyperglycemia A1c 6.5 , controlled GARAGE DOOR TECHNICIAN regimen: Metformin thousand milligrams twice a day, jardiance 25 mg daily Hypoglycemic episodes on this regimen: None and not checking blood sugars at home Follows up with for diabetes management: Primary care physician at [facility] Diabetic-complications assessment: Retinopathy: None Peripheral neuropathy: Yes on treatment Autonomic neuropathy: None Nephropathy: None Macrovascular complications: None Risk factor assessment: Last lipid profile - None on file On ACEi/ARB: Yes On Statin: yes 2. Hypothyroidism GARAGE DOOR TECHNICIAN 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 daily TSH 2.1 [...] 20,000 Units/ sodium bicarbonate 650 mg(#) PRN (Technology Engineer from Rx) Physical Examination Vital Signs: Last [...] 09:45 AM No results found for: FREET3, [id number], THYBINDGLB Pertinent radiology images viewed. Impression: RAMIREZ [...] AM CDT Inpatient Pain Management Nurses - [facility] - Follow -Up Primary team is responsible for entering orders. Suggested Plan for the Day: Change acetaminophen 1000 mg PO q 8 hours, [id number] - Patient has been at ~ 4000 mg daily for many days Change gabapentin 800 mg PO q 12 hours, 9887-1620 - improve medication that patient indicates helps with phantom limb pain and facilitate the larger dose being given just before bedtime. Gabapentin 600 mg PO q 12 hours, 4408-3254 - maintain a 400 mg/day dose increase [...] Please call with questions/concerns. Jasper Betts, MSN, RN-BC Clinical Nurse Coordinator Pain Management [phone] Team pager [phone] * Hugh Salinas MD - 01/03/2018 10:37 [...] non-insulin dependent diabetes mellitus who presented to [facility] on 12/13/17 for scheduled left hemipelvectomy [...] 20,000 Units/ sodium bicarbonate 650 mg(#) PRN (Technology Engineer from Rx) Review of Systems: A 14 [...] 0510) POC Glucose (Download): (!) 119 (01/03/18 8051) Radiology and other Diagnostics Review: Pertinent radiology reviewed. Hugh Salinas MD Pager [phone] * Adrienne Carlos, RD - 01/03/2018 8:59 [...] 12/14. 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 Pt's weight wentdown 28# or 12% s/p removal of her leg, 203# (12/18). Latest weight shows a 14# increase in 9 days, likely due to fluid. Pt had continued to havedecreased PO intake, with average PO intake of 600 kcals, 33 gm per day per calorie count. Yet Per fellow RD, all of Pt's intake of [place] shakes may not be included in the number. Noted nocturnal TFs ordered 12/27, yet not started until 12/28 due to trouble obtaining post- pyloric corpak placement. Pthad also been having issues with stool soilage prohibiting wound healing so team proceeded with colostomy placement. NSS consulted 12/29 for TPN to start 412 AM after pt returns from OR, due [...] encourage protein shakes between meals, made with [place] Breakfast Essentials (NO SUGAR ADDED), skim milk, [...] further nutrition care. Adrienne Carlos RD, LD, [facility] *[phone] * Feli Winkler MD - 01/03/2018 8:48 [...] -Colorectal surgery will sign off, please page #[phone] with further questions -Follow-up with Dr. Mccollum [...] Vital Signs: 24 Hour Range BP: 107/59 (01/03 0500) Temp: 37.1 C (98.8 F) (01/03 0500) Pulse: 101 (01/030) Respirations: 18 PER MINUTE (01/03 0500) SpO2: 98 % (01/03 500) O2 Delivery: None (Room Air) (01/03 050) BP: (107-138)/(59-76) Temp: [36.4 C (97.5 F)-37.2 [...] Net 308 ml Feli Winkler MD Pager [phone] * César Davis MD - 01/03/2018 6:22 [...] instead of SNF, would prefer [facility], DIRECTOR OF INSTRUMENTAL MUSIC psych and psychology consults for coping, depression - appreciate assistance -Endocrine consult for blood sugar management - appreciate recs -ID consult - Zosyn, micafungin -Nutrition following for optimization - TPN (continue for now), tube feeds -General Surgery consult - colostomy 12/30 Dispo: Continue inpatient care César Davis MD [phone] * Harry Alfonso - 01/02/2018 3:37 PM [...] with stress hyperglycemia A1c 6.5 , controlled GARAGE DOOR TECHNICIAN regimen: Metformin thousand milligrams twice a day, jardiance 25 mg daily Hypoglycemic episodes on this regimen: None and not checking blood sugars at home Follows up with for diabetes management: Primary care physician at [facility] Diabetic-complications assessment: Retinopathy: None Peripheral neuropathy: Yes on treatment Autonomic neuropathy: None Nephropathy: None Macrovascular complications: None Risk factor assessment: Last lipid profile - None on file On ACEi/ARB: Yes On Statin: yes 2. Hypothyroidism GARAGE DOOR TECHNICIAN 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 daily TSH 2.1 [...] Adult Parenteral Nutrition (TPN) 65 mL/hr at 01/01/18 2044 PRN and Respiratory Meds:alum/mag hydroxide/simeth Q6H PRN, calcium carbonate Q4H PRN, diazePAM Q6H PRN, diphenhydrAMINE Q6H PRN OR [DISCONTINUED] diphenhydrAMINE Q6H PRN, fentaNYL citrate PF Q1H PRN, HYDROmorphone (DILAUDID) injection Q4H PRN, naloxone PRN, ondansetron (ZOFRAN) IV Q6H PRN, oxyCODONE Q3H PRN, pancrelipase 20,000 Units/ sodium bicarbonate 650 mg(#) PRN (Technology Engineer from Rx) Physical Examination Vital Signs: Last [...] 09:45 AM No results found for: FREET3, [id number], THYBINDGLB Pertinent radiology images viewed. Impression: Marco [...] monitor and notify for any changes. * Christin Helms, OT - 01/02/2018 11:34 AM CDT Formatting of this note may be different from the original. OCCUPATIONAL THERAPY PROGRESS NOTE Patient Name: Beata Kaiser Room/Bed: CL6014/01 Admitting Diagnosis: Pelvic mass [R19.00] Pelvic mass [...] Pt requires extra time and cues for byqw-to-rtcy process. Limited by pain and weakness. Assist [...] (HCC) Chronic pain Beata Kaiseris a 52 y.o.femaleHx of hypothyroidism and non-insulin dependent diabetes mellitus who presented to [facility] on 12/13/17 for scheduled left hemipelvectomy [...] as follows: Recent Labs 12/31/17 1010 01/01/18 0515 01/02/18 0325 HGB 6.6* 8.9* 8.6* , Recent [...] Net 341 ml Fareed Holcomb MD Pager [phone] Associated attestation - Manny Barrios MD - [...] instead of SNF, would prefer [facility], DIRECTOR OF INSTRUMENTAL MUSIC psych and psychology consults for coping, depression - appreciate assistance -Endocrine consult for blood sugar management - appreciate recs -ID consult - Zosyn, micafungin -Nutrition following for optimization - TPN (continue for now), tube feeds -General Surgery consult - colostomy 12/30 Dispo: Continue inpatient care César Davis MD [id number] * Amanda Juares - 01/01/2018 4:29 PM CDT BS at 1330 was 386, recheck BS at 1610 was 354. MD called, recommended calling endocrinology. 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 Impression: Marco Payne MD 01/01/2018 Endocrine * César Davis MD [...] instead of SNF, would prefer [facility], DIRECTOR OF INSTRUMENTAL MUSIC psych and psychology consults for coping, depression [...] Progress Note Name: Beata Kaiser Today's Date: 12/31/2017 Admission Date: 12/13/2017 LOS: 18 days Assessment/Plan: Principal Problem: Pelvic mass Active Problems: Pelvic mass in female Metabolic acidosis Acute blood loss as cause of postoperative anemia Depression Anxiety DM (diabetes mellitus) (HCC) Hypothyroidism Hemorrhagic shock (HCC) Chronic pain Beata Kaiser is a 52 y.o. female Hx of hypothyroidism and non-insulin dependent diabetes mellitus who presented to [facility] on 12/13/17 for scheduled left hemipelvectomy [...] 20,000 Units/ sodium bicarbonate 650 mg(#) PRN (Technology Engineer from Rx) Objective: Vital Signs: Last Filed [...] Intensity Pain Scale 0-10 (Pain 1): 3 (12/31/171955) Vitals: 12/18/17 0600 12/27/17 0654 12/30/17 0820 [...] observation Indy Isabel MD Date: 12/31/2017 Pager: [phone] Interval History Afebrile, stable vitals. Wounds newly [...] mL/hr at 12/30/172027 lactated ringers infusion Stopped (12/30/17 1440) PRN and Respiratory Meds:alum/mag hydroxide/simeth Q6H PRN, calcium carbonate Q4H PRN, diazePAM Q6H PRN, diphenhydrAMINE Q6H PRN OR [DISCONTINUED] diphenhydrAMINE Q6H PRN, fentaNYL citrate PF Q1H PRN, HYDROmorphone (DILAUDID) injection Q4H PRN, naloxone PRN, ondansetron (ZOFRAN) IV Q6H PRN, oxyCODONE Q3H PRN, pancrelipase 20,000 Units/ sodium bicarbonate 650 mg(#) PRN (Technology Engineer from Rx) Physical Examination Vital Signs: Last [...] Microbiology data reviewed. Chari Pedro DO Pager [phone] ID fellow * Kerline Kruger RN - [...] on the patient. 1703: Paged Med consults #[phone] Spoke to team about EKG results and [...] Assessment? Except 12/30/2017 2:45 PM Stoma Assessment [place] 12/31/2017 12:00 PM Drainage Description Sanguineous;Brown 12/30/2017 [...] BSN Wound Ostomy Nursing Consult Service Office: [phone] Pager: [phone] After hours Wound/Ostomy team pager : [phone] * Adair Colin MD - 12/31/2017 12:05 PM CDT [...] between 8am and 3pm on weekends at [phone]. Otherwise, page the residential lawn specialist education department chair. Subjective: Beata Kaiser is seen for routine [...] 100 (12/31 1030) Respirations: 18 PER MINUTE (04/13 1030) SpO2: 94 % (12/31 1030) O2 [...] 20,000 Units/ sodium bicarbonate 650 mg(#) PRN (Technology Engineer from Rx) Mental Status Exam: General/Constitutional: cooperative, [...] and between 8am and 3pm on weekends [phone]. Otherwise, page the residential lawn specialist education department chair. Staff name: Hugh Quintana MD Date: 01/01/2018 [...] Net 2755 ml Evelyn Barrow DO Pager [phone] * Herminia Gant OTA - 12/31/2017 11:30 [...] AM CDT Inpatient Pain Management Nurses - [facility] - Follow -Up Discussed patient with Dr. Mina Davis (primary team). Primary team is responsible for entering orders. Suggested Plan for the Day: Lidocaine patch x2 cut to fit placed beside surgical incision and around ostomy bag. Discontinue fentanyl DISTILLERY MANAGER - patient stating that she is not [...] Regimen, OME: Used 580 mcg in fentanyl DISTILLERY MANAGER ~ 58 mg Used 1 dose of morphine IV @ 2 mg ~ 6 mg Used 3 doses of IV fentanyl @ 50 gpc=541 mcg ~ 15 mg Used 1 dose [...] 25 mg at 12/19/17 2139 fentaNYL (SUBLIMAZE) DISTILLERY MANAGER 550 mcg/ NS 55 mL infusion syr (std conc)( premade), , Intravenous, DISTILLERY MANAGER, César Davis MD fentaNYL citrate PF (SUBLIMAZE) injection 50-100 mcg, 50-100 mcg, Intravenous, Q1H PRN, Kristie Cruz MD, 50 mcg at 12/30/17 1754 gabapentin [...] 1 capsule, 1 capsule, Feeding Tube, PRN (Technology Engineer from Rx), Adrienne Zarate MD pantoprazole DR (PROTONIX) tablet 40 mg, 40 mg, Oral, QDAY(21), Luis Sargent MD, 40 mg at 12/29/17 2146 piperacillin/tazobactam (ZOSYN) 4.5 g/100 mL iso-osmotic IVPB, [...] hours as needed for pain. Discontinue fentanyl DISTILLERY MANAGER. Suggest allowing hydromorphone 0.5-1 mg IV every 4 hours as needed for breakthrough pain not relieved with oral medications or NPO or vomiting for ONLY 24 hours, then taper to every 6 hours PRN breakthrough pain not relieved with oral medications or NPO or vomiting. Please call with questions/concerns. Jasper Betts, MSN, RN- Clinical Nurse Coordinator Pain Management [phone] Team pager [phone] * Adrienne Carlos RD - 12/31/2017 9:46 [...] (TPN) 65 mL/hr at 12/30/172027 fentaNYL (SUBLIMAZE) DISTILLERY MANAGER 550 mcg/ NS 55 mL infusion syr (std conc)(premade ) lactated ringers infusion Stopped (12/30/17 1440) PRN and Respiratory Meds:alum/mag hydroxide/simeth Q6H PRN, calcium carbonate Q4H PRN, diazePAM Q6H PRN, diphenhydrAMINE Q6H PRN OR [DISCONTINUED] diphenhydrAMINE Q6H PRN, fentaNYL citrate PF Q1H PRN, naloxone PRN, ondansetron (ZOFRAN) IV Q6H PRN, oxyCODONE Q3H PRN, pancrelipase 20,000 Units/ sodium bicarbonate 650 mg(#) PRN (Technology Engineer from Rx) Electrolyte Treatments: Nothing besides LR [...] 12/14. 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 Pt's [...] fellow RD, all of Pt's intake of [place] shakes may not be included in the [...] + Protein shakes between meals, made with [place] Breakfast Essentials (NO SUGAR ADDED), skim milk, [...] are desired. NSS is available by pager [phone] for assistance. Adrienne Carlos, RD, LD, [facility] *[phone] * César Davis MD - 12/31/2017 8:01 [...] instead of SNF, would prefer [facility], DIRECTOR OF INSTRUMENTAL MUSIC psych and psychology consults for coping, depression - appreciate assistance -IM consult for hyponatremia and diabetes management- appreciate recs -ID consult for persistent leukocytosis and fevers - Zosyn, micafungin -Nutrition following for optimization - TPN -General Surgery consult - colostomy 12/30 Dispo: Continue inpatient care César Davis MD [phone] * Kerline Kruger RN - 12/31/2017 8:00 AM CDT Beata [...] No orders reiceved. Surgery resident, Dr Barrow #[phone] paged. Orders received. Primary RN notified and will administer gabapentin per patient request for phantom limb pain. * Kerline Kruger, SANJAY - 12/30/2017 7:03 PM CDT I have reviewed the notes, assessment, and/or procedures performed by Ana Eller ([employer] student) and concur with her/his documentation unless [...] Dr. Davis gave orders for a Fentanyl DISTILLERY MANAGER with the settings of 06/25//. Orders in place, nothing further at this [...] necessary. Indy Isabel MD Date: 12/30/2017 Pager: [phone] Interval History Afebrile, stable vitals. To OR [...] 12/14 12/14 Gentamycin 12/14 12/15 Clindamycin 12/14 4 Pip/tazo 12/22 active Fluconazole 4/4 active Vancomycin 12/23 12/27 Estimated Creatinine Clearance: [...] Units/ sodium bicarbonate 650 mg (#) PRN (Technology Engineer from Rx) Physical Examination Vital Signs: Last [...] other Diagnostics Review Microbiology data reviewed. Chari Pedro, DO Pager [phone] ID fellow * Kerline Kruger, RN - 12/30/2017 3:59 PM CDT Patient arrived [...] as indicated post-operatively. Therapist: Lexus Shirley OTR/L [id number] Date: 12/30/2017 * Cassandra Villatoro - 12/30/2017 [...] 1600ml Last BM: 12/30 Meds: Scheduled Meds: [MAR Hold] acetaminophen (TYLENOL) tablet 1,000 mg 1,000 [...] Stopped (12/29/171956) lactated ringers infusion 1,000 mL (12/30/17838) PRN and Respiratory Meds:[Nov] alum/mag hydroxide/simeth Q6H PRN, [NOV Hold ] calcium carbonate Q4H PRN, [NOV Hold] diazePAM Q6H PRN, [Nov] diphenhydrAMINE Q6H PRN OR [DISCONTINUED] diphenhydrAMINE Q6H PRN, [NOV Hold ] fentaNYL citrate PF Q1H PRN, [NOV Hold] ondansetron (ZOFRAN) IV Q6H PRN, [NOV Hold] oxyCODONE Q3H PRN, [NOV Hold] pancrelipase 20,000 Units/ sodium bicarbonate 650 mg(#) PRN (Technology Engineer from Rx) Electrolyte Treatments: None noted yesterday [...] 12/14. 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 Pt's [...] fellow RD, all of Pt's intake of [place] shakes may not be included in the [...] of goal) Nneka Thompson MS, RD, LD, [facility] Pager [phone] Office [phone] * Aimee Mccollum DO - 12/30/2017 8:22 [...] Patient knows plans. Objective: Medications: Scheduled Meds: [MAR Hold] acetaminophen (TYLENOL) tablet 1,000 mg 1,000 mg Oral Q6H* [NOV Hold] buPROPion (WELLBUTRIN) tablet 100 mg 100 mg Oral TID [NOV Hold] busPIRone (BUSPAR) tablet 15 mg 15 mg Oral BID fluconazole (DIFLUCAN) tablet 400 mg 400 mg Oral QDAY gabapentin (NEURONTIN) capsule 600 mg 600 mg Oral Q6H [MAR Hold] insulin aspart U-100 (NOVOLOG FLEXPEN) injection [...] [NOV Hold ] calcium carbonate Q4H PRN, [NOV Hold] diazePAM Q6H PRN, [NOV Hold] diphenhydrAMINE Q6H PRN OR [DISCONTINUED] diphenhydrAMINE Q6H PRN, [NOV Hold ] fentaNYL citrate PF Q1H PRN, [NOV Hold] ondansetron (ZOFRAN) IV Q6H PRN, [NOV Hold] oxyCODONE Q3H PRN, [NOV Hold] pancrelipase 20,000 Units/ sodium bicarbonate 650 mg(#) PRN (Technology Engineer from Rx) Vital Signs: Last Filed Vital [...] 24 hours): FSBS (Manual): (!) 160 (12/30/17 9834) Glucose: (!) 165 (12/30/17 2358) POC Glucose (Download): (!) 160 (12/30/17 4868) Aimee Mccollum DO Pager [phone] * César Davis MD - 12/30/2017 7:54 [...] instead of SNF, would prefer [facility], DIRECTOR OF INSTRUMENTAL MUSIC psych and psychology consults for coping, depression - appreciate assistance -IM consult for hyponatremia and diabetes management- appreciate recs -ID consult for persistent leukocytosis and fevers - Radha, appreciate recs -Nutrition following for optimization- nocturnal tube feeds -General Surgery consult- plan for colostomy 12/30 Dispo: NPO for colostomy today César Davis MD [phone] * Grace Smith, SANJAY - 12/30/2017 3:17 AM CDT Pt bowels are not clear. RN paged Onc to see what step to take next to get pt to clear bowels. Onc education department chair stated that there was no further action [...] with her/his documentation unless otherwise noted. 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: Lynn Bruce Date: 12/29/2017 * Chari Moon [...] Cognitive Status: Alert;Oriented;Cooperative Persons Present: Daughter;Spouse (Supervising GARAGE DOOR TECHNICIAN) Pain: Patient complains of pain Pain Location: [...] Units/ sodium bicarbonate 650 mg (#) PRN (Technology Engineer from Rx) Physical Examination Vital Signs: Last Vital Signs: 24 Hour Range BP: 140/87 (12/29 1130) Temp: 36.4 C (97.6 F) (12/29 1130) Pulse: 103 (12/29 1130) Respirations: 16 PER MINUTE (12/29 1130) SpO2: 95 % (12/29 1130) O2 Delivery: None (Room Air) (04/11 1131) BP: (119-142)/(69-87) Temp: [36.4 C (97.6 [...] PROGRESS NOTE Patient Name: Beata Kaiser Room/Bed: [place] [address] Admitting Diagnosis: Pelvic mass [R19.00] Pelvic mass [...] and Cooperative to Participate Persons Present: Daughter (rehabilitation technician) Home Living Type of Home: House Home Layout: Performs ADL'S on One Level (2 steps to enter) Bathroom Shower / Tub: Tub/Shower Unit Prior Function Level Of [place]: Independent with ADLs and functional transfers Lives [...] Inpatient Setting Equipment Recommendations: BS Additional Information: Recommend ongoing assistance for: Transfers, Bed mobility, Dressing, Bathing, Toileting Therapist: SACHA Nath/Tapan [id number] Date: 12/29/2017 * Adrienne Zarate MD - [...] instead of SNF, would prefer [facility], DIRECTOR OF INSTRUMENTAL MUSIC psych and psychology consults for coping, depression - appreciate assistance -IM consult for hyponatremia and diabetes management- appreciate recs -ID consult for persistent leukocytosis and fevers - Radha, appreciate recs -Nutrition following for optimization- nocturnal tube feeds -General Surgery consult- plan for colostomy 12/30 Dispo: Continue inpatient care, NPO at [place] and hold tube feeds Adrienne Zarate MD [phone] * Adair Colin MD - 12/28/2017 6:31 [...] between 8am and 3pm on weekends at [phone]. Otherwise, page the residential lawn specialist education department chair. Subjective: Beata Kaiser is seen for routine [...] 000 Units/ sodium bicarbonate 650 mg(#) PRN (Technology Engineer from Rx) Mental Status Exam: General/Constitutional: cooperative, [...] non focal Musculoskeletal: no EPS or dystonia Aadir Colin MD Associated attestation - Hugh Quintana [...] and between 8am and 3pm on weekends [phone]. Otherwise, page the residential lawn specialist education department chair. Staff name: Hugh Quintana MD Date: 12/29/2017 [...] Units/ sodium bicarbonate 650 mg (#) PRN (Technology Engineer from Rx) Physical Examination Vital Signs: Last [...] / Cognitive Status: Alert;Cooperative Persons Present: (Spervising GARAGE DOOR TECHNICIAN) Pain: Patient complains of pain Pain Location: [...] mobility; Ambulation;Stairs;Toileting Therapist: Chari Moon Date: 12/28/2017 Associated edith - Cassandra Villatoro - 12/28/2017 4:46 PM CDT I was [...] follow and provide intervention as indicated. Therapist: Lexus Shirley, OTR/L [id number] Date: 12/28/2017 * aNni Mcelroy RN - 12/28/2017 10:02 AM CDT [...] BSN Wound Ostomy Nursing Consult Service Office: [phone] Pager: [phone] After hours Wound/Ostomy team pager : [phone] * Dalia Bullock MD - 12/28/2017 9:38 [...] non-insulin dependent diabetes mellitus who presented to [facility] on 12/13/17 for scheduled left hemipelvectomy [...] Dalia Bullock MD PGY-3 Internal Medicine Pager [phone] Subjective Beata Kaiser is a 52 y.o. [...] 20,000 Units/ sodium bicarbonate 650 mg(#) PRN (Technology Engineer from Rx) Objective: Vital Signs: Last Filed [...] 0400) POC Glucose (Download): (!) 187 (12/28/17 1447) Radiology and other Diagnostics Review: Pertinent radiology [...] Hgb 8.2 -Rehab consult- appreciate recs -Psych, DIRECTOR OF INSTRUMENTAL MUSIC psych and psychology consults for coping, depression - appreciate assistance -IM consult for hyponatremia- appreciate recs -ID consult for persistent leukocytosis and fevers - Radha appreciate recs -Nutrition following for optimization; calorie count performed yesterday; request Nutrition evaluation for possible feeding tube placement -CT pelvis ordered to evaluate fluid collection - no discrete fluid collection -General Surgery consult for possible colostomy- plan for colostomy 12/30 Dispo: Continue inpatient care Adrienne Zarate MD [phone] * Anita Hines RN - 12/28/2017 12:16 [...] a 52 y.o. female admitted to [facility] on 12/13/2017 with the following issues: S/p [...] acute inpatient rehabilitation. Other recommendations Impaired gait/mobility: GARAGE DOOR TECHNICIAN pt was independent Currently requiring total assist Will benefit from continued work with PT to address mobility deficits Impaired ADL: GARAGE DOOR TECHNICIAN pt was independent Currently requiring total assist Will benefit from ongoing OT to address functional deficits Neuropathic pain Agree with aggressive gabapentin regimen as ordered. Pt will also benefit from de-sensitization techniques as instructed by PT and to be performed by self as able. Hospital Course: Beata Kaiser is a 52 yo F who presented to [facility] on 12/13/17 for scheduled left hemipelvectomy [...] management due to ongoing pain issues since DISTILLERY MANAGER removed. Pt has been working with PT/OT for therapy needs. IM consulted for hyponatremia. This is a follow up visit from initial consultation performed on 12/20/17 Hawk Jennings MD Subjective Beata Kaiser is a 52 [...] set ( turned to R with wedge). EDI SPECIALIST COGNITIVE EVALUATION SUMMARY PRAGMATICS: BEHAVIOR: AUDITORY COMPREHENSION: [...] 20,000 Units/ sodium bicarbonate 650 mg(#) PRN (Technology Engineer from Rx) Objective Vital Signs: Last Filed [...] gauze, ABD, and hypafix tape. * Dalia Bullock MD - 12/27/2017 3:31 PM CDT Formatting [...] non-insulin dependent diabetes mellitus who presented to [facility] on 12/13/17 for scheduled left hemipelvectomy [...] Dalia Bullock MD PGY-3 Internal Medicine Pager [phone] Subjective Beata Kaiser is a 52 y.o. [...] / Cognitive Status: Alert;Cooperative Persons Present: (Supervising GARAGE DOOR TECHNICIAN) Pain: Patient complains of pain Pain Location: [...] CDT PHYSICAL THERAPY MOBILITY NOTE Attempt x1 (0341) Patient was assigned for activity with the mobility aide by the supervising therapist. Patient declined to participate despite encouragement. Patient reports that she is resting comfortably at this time and requests to continue resting. Patient is open to this library technician returning for mobility session later on this date if time allows. Nursing notified. Will revisit this patient as able. Attempt x2 (7659): Patient was assigned for activity with the mobility aide by the supervising therapist. Patient is unavailable. Patient working with Physical Therapist at this time. Aide: Lynnalexus Barrera Date: 12/27/2017 * AnatolyjohnnyjoseEmma, RD - 12/27/2017 1:07 PM CDT CLINICAL NUTRITION Clinical Nutrition Follow-Up Summary Nutrition Assessment of Patient: Malnutrition Assessment: Adequately nourished prior to admission Current Oral Intake: Marginally Adequate Estimated Calorie Needs: 1660 (30 kcals/kg per DBW 55.3 kg due to large surgical wound) Estimated Protein Needs: 100 (1.8 g/kg desired wt of 55.3kg.) Oral Diet Order: Six Small Meals Oral Supplement: [place] Breakfast Essentials No Sugar Added, Protein Powder [...] have any lunch. Dinner was only an French muffin and grapes. She reports her appetite [...] Hours Status: Not met Emma See RD #[id number]. * Adrienne Zarate MD - 12/27/2017 12:43 [...] Hgb 8.1 -Rehab consult- appreciate recs -Psych, DIRECTOR OF INSTRUMENTAL MUSIC psych and psychology consults for coping, depression [...] Dispo: Continue inpatient care Adrienne Zarate MD [phone] Associated attestation - Tamiko Luther MD - [...] collection is noted. Chari Pedro DO Pager [phone] Infectious Diseases Fellow * Fareed Holcomb MD [...] wound. Mild kimberly-incisional erythema. Skin: warm, dry Fareed Holcomb MD Personal Pager: #[phone] Team Pager: # [phone] * Marlene Ramirez - 12/27/2017 10:15 AM CDT ORTHOTICS/PROSTHETICS Consult Note: NAME: Beata Kaiser ADMISSION DATE: admitted to hospital : 1965 AGE: 52 y.o. ROOM: [place] [address] DOCTOR: Date of Order: 12/24 Date of Service: 12/27 Services referred for: Prosthetic Eval and Treat: AK process checker Description of condition/injury, including services:Amputations Size: 1x [...] PROGRESS NOTE Patient Name: Beata Kaiser Room/Bed: [place] [address] Admitting Diagnosis: Pelvic mass [R19.00] Pelvic mass [...] and Cooperative to Participate Persons Present: (rehab rn) Home Living Type of Home: House Home Layout: Performs ADL'S on One Level (2 steps to enter) Bathroom Shower / Tub: Tub/Shower Unit Prior Function Level Of [place]: Independent with ADLs and functional transfers Lives [...] mobility, Dressing, Bathing, Toileting Therapist: SACHA Nath/Tapan 2086 Date: 12/27/2017 * Macho Nolasco, PHARMD - 12/27/2017 7:58 AM CDT Formatting of [...] needed. Macho Nolasco, FREDO 12/27/2017 * Flakita Allen RN - 12/27/2017 2:[address] [...] non-insulin dependent diabetes mellitus who presented to [facility] on 12/13/17 for scheduled left hemipelvectomy [...] 0401) POC Glucose (Download): (!) 215 (12/26/17 0608) Radiology and other Diagnostics Review: Pertinent radiology [...] Cognitive Status: Alert;Cooperative;Oriented;To Person;To Place Persons Present: Retail Store Assistant Pain: Patient complains of pain;/10;Before activity Pain Location: Left;Hip Pain Interventions: Patient [...] PROGRESS NOTE Patient Name: Beata Kaiser Room/Bed: [place] [address] Admitting Diagnosis: Pelvic mass [R19.00] Pelvic mass [...] Tub: Tub/Shower Unit Prior Function Level Of [place]: Independent with ADLs and functional transfers Lives [...] Setting Equipment Recommendations: Drop arm BSC, w/c, secretary receptionist, slide board Additional Information: Recommend ongoing assistance [...] Aide: Bryanna Sepulveda Date: 12/26/2017 * Christin Helms OT - 12/26/2017 9:47 AM CDT OCCUPATIONAL THERAPY Pt not seen on first attempt, currently working with nursing staff and rounding physicians. Will f/u later today as able Therapist: Christin Helms, OT Date: 12/26/2017 * César Davis MD - [...] Hgb 7.9 -Rehab consult- appreciate recs -Psych, DIRECTOR OF INSTRUMENTAL MUSIC psych and psychology consults for coping, depression - appreciate assistance -IM consult for hyponatremia- appreciate recs, improving -ID consult for persistent leukocytosis and fevers - Vanc/jerseysyn, appreciate recs -Nutrition following for optimization; calorie count performed yesterday; request Nutrition evaluation for possible feeding tube placement -CT pelvis ordered to evaluate fluid collection - no discrete fluid collection -General Surgery consult for possible colostomy Dispo: Continue inpatient care César Davis MD Pager [phone] * Hood Tellez MD - 12/25/2017 6:49 [...] non-insulin dependent diabetes mellitus who presented to [facility] on 12/13/17 for scheduled left hemipelvectomy [...] Pain Scale 0-10 (Pain 1): 4 (12/25/17 1812) Vitals: 12/13/17 1115 12/17/17 1600 12/18/17 0600 [...] 0442) POC Glucose (Download): (!) 292 (12/25/17 8472) Radiology and other Diagnostics Review: Pertinent radiology [...] Trinity Mike, PT Date: 12/25/2017 * Lina Lea RN - 12/25/2017 2:34 PM CDT Placed [...] to her protein shakes. * Sofía Chua, PHARMD - 12/25/2017 9:32 AM CDT Formatting of [...] Blood Cells Date/Time Value Ref Range Status 12/25/2017 0442 11.8 (H) 4.5 - 11.0 K/UL Final 12/24/2017 0716 15.8 (H) 4.5 - 11.0 K/UL Final 12/24/2017 0434 16.9 (H) 4.5 - 11.0 K/UL Final 12/23/2017 0729 20.8 (H) 4.5 - 11.0 K/UL Final Creatinine Date/Time Value Ref Range Status 12/25/2017 0442 0.49 0.4 - 1.00 MG/DL Final 12/24/2017 0434 0.57 0.4 - 1.00 MG/DL Final 12/23/2017 0729 0.72 0.4 - 1.00 MG/DL Final Blood Urea Nitrogen Date/Time Value Ref Range Status 12/25/20172 6 (L) 7 - 25 MG/DL Final [...] as needed. Sofía Chua, PHARMD 12/25/2017 * Césra Davis MD - 12/25/2017 8:54 AM CDT [...] 8.3 today -Rehab consult- appreciate recs -Psych, DIRECTOR OF INSTRUMENTAL MUSIC psych and psychology consults for coping, depression- appreciate assistance -IM consult for hyponatremia- appreciate recs, improving -ID consult for persistent leukocytosis and fevers- Vanc/zosyn, appreciate recs -Nutrition following for optimization; calorie count performed yesterday; request Nutrition evaluation for possible feeding tube placement -CT pelvis ordered to evaluate fluid collection Dispo: Continue inpatient care César Davis MD Pager [phone] * Luis Sargent MD - 12/24/2017 5:29 [...] non-insulin dependent diabetes mellitus who presented to [facility] on 12/13/17 for scheduled left hemipelvectomy [...] 1641) O2 Delivery: None (Room Air) (12/24 999) BP: (91-138)/(55-75) Temp: [36.4 C (97.5 F)-37.3 [...] Screen NEG Electronic Crossmatch YES Unit Number [id number] Blood Component Type RBC,ADSOL,LEUKO REDUCED Unit Division [...] Pertinent radiology reviewed. Luis Sargent MD Pager [phone] * Italia Ramos RN - 12/24/2017 3:33 [...] PROGRESS NOTE Patient Name: Beata Kaiser Room/Bed: [place] [address] Admitting Diagnosis: Pelvic mass [R19.00] Pelvic mass [...] and Cooperative to Participate Persons Present: RN (household personal assistant, rehabilitation technician) Home Living Type of Home: House Home Layout: Performs ADL'S on One Level (2 steps to enter) Bathroom Shower / Tub: Tub/Shower Unit Prior Function Level Of [place]: Independent with ADLs and functional transfers Lives [...] bed. Pt supine at OT departure with medical staff assistant at bedside. Activity Tolerance Endurance: 2/5 Tolerates [...] mobility, Dressing, Bathing, Toileting Therapist: SACHA Nath/Tapan [id number] Date: 12/24/2017 * Joseph Acosta RN - 12/24/2017 11:09 AM CDT During review of patient's chart, blood culture drawn 12/23 returns positive. PICC protocol dictates we wait [...] unit today -Rehab consult- appreciate recs -Psych, DIRECTOR OF INSTRUMENTAL MUSIC psych and psychology consults for coping, depression- appreciate assistance -IM consult for hyponatremia- appreciate recs -ID consult for persistent leukocytosis and fevers- Vanc/zosyn, appreciate recs -Nutrition following for optimization -Calorie count today -PICC line ordered Dispo: continue inpatient care Adrienne Zarate MD Pager [phone] * Nani Lynch DO - 12/24/2017 7:44 AM CDT Formatting of [...] Lynch DO Division of Infectious Diseases Pager [phone] Dr. Isabel will round again on the patient on Wednesday. Please feel free to call the ID fellow education department chair at pager [phone] if there are any new issues or [...] 12/21 Ucx: Aracely sp 12/23 Blood culture 09/21 sets GPC, resembling Streptococci 12/24 Blood culture [...] acute cardiopulmonary abnormality. Dominique Nelson MD Pager [phone] Infectious Diseases Fellow * Mauro Xiong - [...] non-insulin dependent diabetes mellitus who presented to [facility] on 12/13/17 for scheduled left hemipelvectomy [...] needs further assistance, the service should page [phone] (24 hours a day/7 days a week) to discuss the case. Subjective Beata Britni Kaiser is a 52 y.o. female. Patient [...] Pertinent radiology reviewed. Luis Sargent MD Pager [phone] * AlexKaylie - 12/23/2017 3:24 PM CDT Formatting of [...] adjust therapy as needed. Kaylie Johnson [facility] 12/23/2017 * Nani Lynch DO - [...] immunologic function, and interplay of other issues. Nani Lynch DO Division of Infectious Diseases Pager [phone] Interval History Fever up to 38.9 No [...] atelectasis and/or pneumonia. Dominique Nelson MD Pager [phone] Infectious Diseases Fellow * Herminia Gant OTA [...] Tub: Tub/Shower Unit Prior Function Level Of [place]: Independent with ADLs and functional transfers Lives [...] OT Discharge Recommendations: Inpatient Setting Equipment Recommendations: [facility] [place] Additional Information: Next treatment: cardiac chair ordered [...] Therapist: Cassandra Villatoro Date: 12/23/2017 * Kerline Kruger RN - 12/23/2017 12:10 PM CDT Spoke [...] monitor -Rehab consult- appreciate recs -Psych and DIRECTOR OF INSTRUMENTAL MUSIC psych consults for coping, depression- appreciate assistance -IM consult for hyponatremia- appreciate recs -ID consult for persistent leukocytosis and fevers- jerseysyn, appreciate recs -Nutrition following for optimization Dispo: continue inpatient care Adrienne Zarate MD Pager [phone] * Kerline Kruger RN - 12/23/2017 10:[address] Zarate notified about patients temperature of 38.9 C (102 F) and patients lethargy. Patient is unable to carry on conversation and barely able to answer questions before drifting off to sleep. Dr. Zarate stated that she would come to see the patient shortly. Nothing further at this time. * Ivette Wade APRN-DIRECTOR OF INSTRUMENTAL MUSIC - 12/23/2017 9:35 AM CDT Patient too tired to engage in conversation this morning. Will continue to try to find her and talk about her emotional recovery from her new body image. She is a very self reliant and resilient woman by history. Please use the sleep bundle to assure her at leat 4 hours of uninterrupted sleep. Ivette Wade [facility]- [phone] * Mauro Xiong - 12/22/2017 9:[address] Welch regarding excessive MANNY drain output and drainage from incision site, as well as multiple loose stools. Received verbal order to clamp MANNY drain for one hour. Will continue to monitor output. * Shilpi Camejo, SANJAY - 12/22/2017 6:02 PM CDT .I have [...] non-insulin dependent diabetes mellitus who presented to [facility] on 12/13/17 for scheduled left hemipelvectomy [...] needs further assistance, the service should page [phone] (24 hours a day/7 days a week) [...] (Last 24 hours) Glucose: (!) 142 (12/22/17 8804) POC Glucose (Download): (!) 227 (12/22/17 6592) Radiology and other Diagnostics Review: Pertinent radiology reviewed. Luis Sargent MD Pager [phone] * Kendrick Varma RN - 12/22/2017 4:58 [...] / Cognitive Status: Alert;Oriented;Cooperative;Follows Commands Persons Present: Retail Store Assistant;Nursing Staff Pain: Patient complains of pain;2/10 (varies [...] Current Oral Intake: Improving Estimated Calorie Needs: 2529-5792 (27-30 kcal/kg desired wt of 55.3kg.) Estimated Protein Needs: 100 (1.8 g/kg desired wt of 55.3kg.) Oral Diet Order: Regular Beata Kaiser is a 52 y.o. 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 (Pt's weight is now down 28# or 12% s/p removal of her leg). Pt appears obese.. Pt reports decreased po intake, no GI concerns. She has somewhat of a flat affect. I was able to engaged her in education regarding her high protein needs. I also encouraged and provided her with a [place] high protein shake which she liked and was sipping on at time of my visit (cleared with RN first / pt is diabetic and on a dluid restriction). She reports she is familiar with diabetic diet and has no questions. RD to continue to follow to ensure adequate protein and po intake. Recommendation: Continue 0917-1679 Consistent Carb Diet OR if bs's elevated, [...] Frame: Within 72 Hours Emma See, KAYA #[id number]. * Shilpi Camejo RN - 12/22/2017 12:39 PM CDT Pt has had several loose stools today. C diff screen negative as of 12/20. Spoke with Dr Zarate for possible imodium orders. Will hold off until ID sees her for rounds * Ivette Wade, SCHOOL PHOTOGRAPHER-DIRECTOR OF INSTRUMENTAL MUSIC - 12/22/2017 10:05 AM CDT Patient was [...] help her have better sleep. Ivette Wade [facility]- [phone] * Adrienne Zarate MD - [...] continue to monitor -Rehab consult- appreciate recs -DIRECTOR OF INSTRUMENTAL MUSIC psych consult for coping, depression- appreciate assistance -IM consult for hyponatremia- appreciate recs -Nutrition following for optimization Dispo: continue inpatient care Adrienne Zarate MD Pager [phone] * Ivette Wade APRN-DIRECTOR OF INSTRUMENTAL MUSIC - 12/21/2017 2:30 PM CDT Patient resting. Spoke with her father. Will return in AM. Ivette Wade [facility]- [phone] * Adrienne Zarate MD - 12/21/2017 [...] continue to monitor -Rehab consult- appreciate recs -DIRECTOR OF INSTRUMENTAL MUSIC psych consult for coping, depression- appreciate assistance -IM consult for hyponatremia- appreciate recs Dispo: continue inpatient care Adrienne Zarate MD Pager [phone] * Herminia Gant OTA - 12/21/2017 1:23 PM CDT OCCUPATIONAL THERAPY [...] Tub: Tub/Shower Unit Prior Function Level Of [place]: Independent with ADLs and functional transfers Lives [...] Current Oral Intake: Improving Estimated Calorie Needs: 5376-7379 (30-35 kcals/kg per DBW 55.3kg) Estimated Protein Needs: 83-111 (1.5-2 gm/kg per DBW 55.3kg) Oral Diet Order: Regular Beata Kaiser is a 52 y.o. 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 (Pt's [...] tolerance. Recommendation: Recommend switching to Diabetic Diet 2074-5747 kcals due to Pt's h/o DM and [...] 72 Hours Nneka Thompson MS, RD, LD, [facility] Pager [phone] Office [phone] * Annette Ling, RN - 12/20/2017 3:55 PM CDT When the patient was cleaned up, the PNC catheter was dislodged and laying in the bed. PNC had not been infusing since yesterday in the SICU. * Keiko Cao - 12/20/2017 3:28 PM CDT Unit Home And School Visitor checked chart for note taking regarding Unit assignments. The spiritual care team is available as needed, 12/04, through the campus switchboard ([phone]). For immediate response, please page [phone]. For a response within 24 hours, please submit an order in O2 for a assembler for puller over hand consult or call the administrative voicemail at [phone]. Respectfully Submitted, . Keiko Cao Firmware Architect Extension [phone] * Ruth Abbott, PT - 12/20/2017 1:02 PM CDT PHYSICAL THERAPY NOTE Attempted to see patient this afternoon at scheduled time with library technician. Patient just transferred off of SICU to the floor. Met with patient once up on the floor and patient declined, requesting to hold therapy until tomorrow. Roller walker placed in patients room for possible attempts at standing next session. Physical therapy will follow up with the patient on 12/21. Therapist: Ruth Abbott PT, DPT Date: 12/20/2017 * Italia Ramos, RN - 12/20/2017 12:00 PM CDT 1200: Report received from Nichole Mendieta RN. 9725: Pt arrived to unit. * Melba Forbes M.Div, [facility] - 12/20/2017 11:30 AM CDT Home And School Visitor Note: Admit Date: 12/13/2017 Reason for Visit: Home And School Visitor met with patient per her request for a assembler for puller over hand visit. Home And School Visitor introduced Spiritual Care and offered active listening as pt shared about her health issues and family. Shantell/Alevism: Pt confirmed that she is Worship. Pt has recently gone to [employer] [facility] in [place], [place] with some co-workers. Pt states this denominational is "more Mu-Ism" bus she likes it saying the "interactive media marketing director provides a good message." Source of Purpose/Meaning: Pt's family appears to be important to her. One daughter, Lynn, was in pt's room and pt has another daughter and son plus her spouse. 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 Pt is not sure that she will be able to keep that same job, yet is hoping to be able to stay on doing more desk work. Home And School Visitor did not catch the name of her [...] support from her community and work. Interventions/Plan: Home And School Visitor provided supportive presence as pt shared about her situation. Pt requested prayer which assembler for puller over hand provided. Pt would appreciate follow-up visits and is not sure if she will go to another unit and later rehab as she continues to recover. Home And School Visitor also spoke individually to daughter Lynn and learned that she is with her first child. Pt has other grandchildren (ages 8 & 4) so this will be her third grandchild. Family is traveling back and forth from [place] to support pt. The spiritual care team is available as needed, 12/04, through the [facility]arta switchboard ([phone]). For immediate response, please page [phone]. For a response within 24 hours, please submit an order in O2 for a assembler for puller over hand consult or call the administrative voicemail at [phone]. Please page or use consult order if patient or family requests visit. Date/Time: User: Pager: [phone] 12/20/2017 1:11 PM Melba Forbes M.Div, [facility] PCU 5 PCU * Herminia [...] Tub: Tub/Shower Unit Prior Function Level Of [place]: Independent with ADLs and functional transfers Lives With: Spouse;Family (2 adult daughters and their SO) ADL's Where Assessed: Edge of Bed Eating Assist: Independent Grooming Assist: Stand By Assist Grooming Deficits: Setup;Brushing Hair;Wash/Dry Face LE Dressing Assist: Total Assist LE Dressing Deficits: Don/Doff R Sock Toileting Assist: Total Assist Toileting Deficits: Perineal Hygiene (incont of BM during session, salvatore) Functional Transfer Assist: Maximum Assist (of 1 [...] continue to monitor -Rehab consult- appreciate recs -DIRECTOR OF INSTRUMENTAL MUSIC psych consult for coping, depression- appreciate assistance Dispo: continue inpatient care, transfer to floor Adrienne Zarate MD Pager [phone] * Ruth Abbott, PT - 12/19/2017 1:33 [...] / Cognitive Status: Alert;Oriented;Cooperative;Follows Commands Persons Present: Retail Store Assistant;Daughter Pain: Patient complains of pain;Before activity;During activity;Patient does not rate pain Pain Location: Left;Hip Pain Interventions: Patient pre-medicated;Patient agrees to participate in therapy with modifications to session;Patient encouraged to use DISTILLERY MANAGER/PNC (IV) Precautions: NGT, 1 MANNY drain L [...] 52 y.o. female : 1965 MRN# : [id number] PROCEDURE: Procedure(s) with comments: JAMIL PELVECTOMY - [...] us with any questions. Anesthesia Pain pager: [phone] Allergies Allergen Reactions Cephalexin SEE COMMENTS Face [...] removed, tolerating CLD. Issues with pain after DISTILLERY MANAGER removed. Continues to have flatus. +BM. Objective: [...] to floor tomorrow Kristie Cruz MD Pager [phone] * Chris Badillo MD - 12/19/2017 6:31 [...] 52 y.o. female : 1965 MRN# : [id number] PROCEDURE: Procedure(s) with comments: JAMIL PELVECTOMY - [...] transition to oral analgesics Anesthesia Pain pager: [phone] Allergies Allergen Reactions Cephalexin SEE COMMENTS Face [...] 20 mmol Intravenous ONCE Continuous Infusions: bupivacaine DISTILLERY MANAGER 0.125% in NS 50mL epidural infusion syr [...] continue ICU care Kristie Cruz MD Pager [phone] * Harry Moore MD - 12/18/2017 6:47 [...] - 100 MG/DL Final Medications: gtts bupivacaine DISTILLERY MANAGER 0.125% in NS 50mL epidural infusion syr [...] ASSESSMENT NOTE Patient Name: Beata Kaiser Room/Bed: [place] [address] Admitting Diagnosis: Pelvic mass [R19.00] Pelvic mass [...] Tub: Tub/Shower Unit Prior Function Level Of [place]: Independent with ADLs and functional transfers Lives [...] address most appropriate level of rehabilitation placement [phone]). Therapist: Tanya Spain OT Date: 12/17/2017 * [...] with modifications to session;Patient encouraged to use DISTILLERY MANAGER/PNC (IV) Precautions: Epidural,NGT, 1 MANNY drain L [...] determined Therapist: Ruth Abbott, PT, DPT Date: 12/17/2017 * Nneka Thompson RD - 12/17/2017 1:20 PM CDT CLINICAL NUTRITION Clinical Nutrition Assessment Summary Nutrition Assessment of Patient: BMI Categories Adult: Obesity Class II: 35-39.9 Malnutrition Assessment: Adequately nourished prior to admission Current Oral Intake: NPO Estimated Calorie Needs: 9297-9174 (30-35 kcals/kg per DBW 65.8 kg ) [...] am. 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 EMR [...] 72 Hours Nneka Thompson MS, RD, LD, [facility] Pager [phone] Office [phone] * Gagan Dunlap, DO - 12/17/2017 11:57 AM CDT Formatting of this note may be different from the original. Anesthesiology Acute Pain Service Date of Service: 12/17/2017 Name: Beata Kaiser is a 52 y.o. female : 1965 MRN# : [id number] PROCEDURE: Procedure(s) with comments: JAMIL PELVECTOMY - CASE LENGTH 5 HOURS CYSTORRHAPHY AND BLADDER NECK REPAIR, CYSTOSCOPY, LEFT ILIAC EXPOSURE POD #: 3, PCEA day 2 ANALGESIA TECHNIQUE Epidural catheter: Bupi 0.125% ADJUNCT ANALGESIA MEDICATIONS dilaudid acetaminophen PO gabapentin TREATMENT PLAN Continue use of epidural for pain management and discontinue DISTILLERY MANAGER and convert to dilaudid PRN. Bolused epidural with 1% lidocaine and increased concentration now that hemodynamically stable. Anesthesia Pain pager: [phone] Allergies Allergen Reactions Cephalexin SEE COMMENTS Face [...] tube QDAY before breakfast Continuous Infusions: bupivacaine DISTILLERY MANAGER 0.125% in NS 50mL epidural infusion syr [...] for improved pain control. * Melba Forbes M.Div [facility] - 12/17/2017 11:30 AM CDT Home And School Visitor Note: Admit Date: 12/13/2017 Home And School Visitor attempted to meet with patient, but pt was sleeping and did not awaken to her name. No family members were present. Please page or use consult order if patient or family requests visit. Home And School Visitor will continue to follow. Date/Time: User: Pager: [phone] 12/17/2017 1:45 PM Melba Forbes M.Div [facility] PCU 2 PCU * Adrienne [...] continue ICU care Adrienne Zarate MD Pager [phone] * Casa George MD - 12/17/2017 8:43 [...] Vitals 24hr Range: Hemodynamics BP: 123/69 (12/17 0600) ABP: 116/64 (12/17 0100) Temp: 37.3 C (99.1 F) (12/17 0400) Pulse: 114 (12/17 0500) Respirations: 16 PER MINUTE (12/17 599) SpO2: [...] - 100 MG/DL Final Medications: gtts bupivacaine DISTILLERY MANAGER 0.0625% in NS 50mL epidural infusion syr [...] gtts: LR 100, Epidural * Monica Sal, RN - 12/16/2017 9:00 AM CDT Pt turned [...] 52 y.o. female : 1965 MRN# : [id number] PROCEDURE: Procedure(s) with comments: JAMIL PELVECTOMY - CASE LENGTH 5 HOURS CYSTORRHAPHY AND BLADDER NECK REPAIR, CYSTOSCOPY, LEFT ILIAC EXPOSURE POD #: 2, PCEA day 1 ANALGESIA TECHNIQUE Epidural catheter: bupivacaine 0.0625% ADJUNCT ANALGESIA MEDICATIONS dilaudid acetaminophen PO gabapentin TREATMENT PLAN Continue use of epidural for pain management and discontinue DISTILLERY MANAGER and convert to dilaudid PRN Anesthesia Pain pager: [phone] Allergies Allergen Reactions Cephalexin SEE COMMENTS Face [...] SOLP (Cabinet Override) NOW Continuous Infusions: bupivacaine DISTILLERY MANAGER 0.0625% in NS 50mL epidural infusion syr [...] -Hb stable, BP labile but fluid responsive -USSI with marginal UOP intermittently -will follow -discussed [...] Pain much better controlled with epidural and DISTILLERY MANAGER. Complains of a sore throat and some [...] continue ICU care Adrienne Zarate MD Pager [phone] * Valerie Couch MD - 12/16/2017 6:52 [...] on 2L Pulmonary toilet, encourage IS GI/FEN DLA-qeyfofjfhnic-Kda 2.9, ARBF NGT: 1L pepcid Zofran prn [...] - 100 MG/DL Final Medications: gtts bupivacaine DISTILLERY MANAGER 0.0625% in NS 50mL epidural infusion syr HYDROmorphone (DILAUDID) DISTILLERY MANAGER 11 mg/NS 55mL infusion syr (std conc)(premade [...] epidural -- PNC -- gabapentin -- dilaudid DISTILLERY MANAGER depression -- Wellbutrin -- buspar CV Mildly [...] Output: Intake/Output Summary (Last 24 hours) at 12/15/175 Last data filed at 03/28/18 2300 Gross per 24 hour Intake 7409.63 [...] - 100 MG/DL Final Medications: gtts bupivacaine DISTILLERY MANAGER 0.0625% in NS 50mL epidural infusion syr HYDROmorphone (DILAUDID) DISTILLERY MANAGER 11 mg/NS 55mL infusion syr (std conc)(premade [...] naloxone PRN, ondansetron (ZOFRAN) IV Q6H PRN Vania Hay MD 0734 Associated attestation - Harris Hurst MD - [...] the resident physician, nursing, RT, pharmacy and obiee consultant staff. I directly supervised the resident [...] PhD GALA FACS Surgical Critical Care Pager [phone] Date: 12/16/2017 * Casa George MD - [...] change performed. Net weight of drainage on [id number]. Ortho team paged (Dr. Swanson). * Gagan Dunlap DO - 12/15/2017 2:36 PM CDT Formatting of this note may be different from the original. Anesthesiology Acute Pain Service Date of Service: 12/15/2017 Name: Beata Kaiser is a 52 y.o. female : 1965 MRN# : [id number] PROCEDURE: Procedure(s) with comments: JAMIL PELVECTOMY - CASE LENGTH 5 HOURS CYSTORRHAPHY AND BLADDER NECK REPAIR, CYSTOSCOPY, LEFT ILIAC EXPOSURE POD #: 1 ANALGESIA TECHNIQUE Epidural catheter: bupivacaine 0.0625% Bolus: 4 mL Delay: 20 minutes Basal Infusion: 6 mL/hr ADJUNCT ANALGESIA MEDICATIONS dilaudid acetaminophen PO gabapentin Ketamine gtt TREATMENT PLAN Continue use of DISTILLERY MANAGER for pain management, Continue use of epidural for pain management and Modification in therapy to improve pain control Epidural placed today once determined patient would not be therapeutically anticoagulated. Added ketamine gtt as adjunct. Continue dilaudid DISTILLERY MANAGER. Will dc the PNC catheter since epidural in place. Anesthesia Pain pager: [phone] Allergies Allergen Reactions Cephalexin SEE COMMENTS Face [...] tube QDAY before breakfast Continuous Infusions: bupivacaine DISTILLERY MANAGER 0.0625% in NS 50mL epidural infusion syr bupivacaine DISTILLERY MANAGER PNC 0.125% infusion syringe HYDROmorphone (DILAUDID) DISTILLERY MANAGER 11 mg/NS 55mL infusion syr (std conc)(premade [...] Elmo Kruger, PT Date: 12/15/2017 * Ruma Reynolds, RN - 12/15/2017 1:[address] [...] continue ICU care Adrienne Zarate MD Pager [phone] * Ruma Reynolds RN - 12/15/2017 12:30 [...] provide intervention as able. Joanne Abernathy, OTR/L [phone] * Valerie Couch MD - 12/15/2017 9:29 [...] epidural -- PNC -- gabapentin -- dilaudid DISTILLERY MANAGER depression -- Wellbutrin -- buspar CV Mildly [...] 899) O2 Delivery: None (Room Air) (12/15 699) BP: (105-160)/(52-110) ABP: (88-164)/(58-90) Temp: [36.8 C (98.2 F)-36.9 C (98.4 F)] Pulse: [114-141] Respirations: [14 PER MINUTE-25 PER MINUTE] SpO2: [92 %-100 %] O2 Delivery: None (Room Air) Vitals: 12/13/17 1115 Weight: 104.8 kg (231 lb 0.7 oz) Intake & Output: Intake/Output Summary (Last 24 hours) at 12/15/17 0929 Last data filed at 12/15/17 0720 Gross per 24 hour Intake 52327.76 ml Output 5880 ml Net 5520.76 ml [...] - 100 MG/DL Final Medications: gtts bupivacaine DISTILLERY MANAGER PNC 0.125% infusion syringe HYDROmorphone (DILAUDID) DISTILLERY MANAGER 11 mg/NS 55mL infusion syr (std conc)(premade [...] (ZOFRAN) IV Q6H PRN Harry Moore MD 7028 ATTESTATION.. I have seen, personally fully evaluated, [...] functional in the mean time a Fentanyl DISTILLERY MANAGER at 10mcg q10min was given to the patient to help decrease her pain. Keith Garcia DO CA-1, Anesthesiology Pager [phone] * Eunice Helms, LELAND - 12/14/2017 12:49 [...] today for hemipelvectomy - Keep NPO Anthony [phone] * Mauro Melgoza, RN - 12/14/2017 5:42 [...] Date: 12/13/2017 Banuelos AC=Airway clearance AM=Aerosolized medication BA=[place] aerosol DB&C=Deep breathe & cough FEV1=Forced expiratory volume in first second) IC=Inspiratory capacity LE=Lung expansion MDI=Metered dose inhaler Neb=Nebulizer O2=Oxygen Oxim=Oximetry PEFR=Peak expiratory flow rate FOOT DOCTOR=Rapid Response Team * Mita Meyer RN - 12/13/2017 10:50 AM CDT Patient arrived on unit via wheelchair accompanied by transport and family. Patient walked to bathroom and then bed without assistance. Assessment completed, refer to flowsheet for details. Orders released, reviewed, and implemented as appropriate. Oriented to surroundings, call light within reach. Plan of care reviewed. Will continue to monitor and assess. in this encounter H&P Notes * Montez Agudelo, - 12/30/2017 8:23 AM CDT Formatting of [...] 24 hours): FSBS (Manual): (!) 160 (12/30/17 3551) Glucose: (!) 165 (12/30/17 2850) POC Glucose (Download): (!) 160 (12/30/17 7849) I have examined the patient, and there [...] Pager Consult Orders: CONSULT COLO-RECTAL SURGERY PHYSICIAN [[id number]] ordered by Montez Agudelo DO at 12/26/17 [...] plan of care. Ramos Cheatham DO Pager: [phone] __ HPI: Beata Kaiser is a 52 [...] (!) 215 (12/26/17 1742) Ramos Cheatham DO Pager:[phone] * Spencer Purcell MD - 12/14/2017 6:04 AM CDT Formatting of this note may be different from the original. Urology History and Physical Examination 12/14/2017 Patient: [...] Marino Real MD PGY-2 Urology Resident Pager: [phone] __ HPI: Beata Kaiser is a 52 [...] Intake/Output: Intake/Output Summary (Last 24 hours) at 12/14/17 0605 Last data filed at 12/14/17 0004 Gross [...] for hemipelvectomy -Clear liquid diet, NPO at MN -Bowel prep -Neomycin/erythromycin oral -heparin drip for DVT, stop at MN prior to procedure -Vascular surgery to assist and is aware -Urology for stent placement prior to procedure and is aware -General surgery consult for intraoperative assistance -Labs -Resume home meds -4 units pRBCs held for OR tomorrow Patient discussed with Dr. Ashkan Zarate MD [id number] History of Present Illness: Beata Kaiser is [...] nerve or vessel damage were discussed. Indications: [facility] IV therapy, TPN Procedure: Under sterile conditions [...] With My Assessment? Yes Wound Base Assessment Black;[place] Surrounding Skin Assessment Intact Wound Site Closure [...] BSN Wound Ostomy Nursing Consult Service Office: [phone] Pager: [phone] After hours Wound/Ostomy team pager : [phone] * Emma Payton, SANJAY - 01/07/2018 4:30 PM CDT Diabetes Education [...] - Diabetes Education Nursing Clinical Excellence [facility] [email or web address] [phone] office [phone] pager * Nani Mcelroy RN - 01/03/2018 9:31 AM CDT Associated Order(s): CONSULT WOUND/OSTOMY TEAM Wound Ostomy Note NAME:Beata Kaiser :1965 AGE: 52 y.o. ADMISSION DATE: 12/13/2017 DAYS ADMITTED: LOS: 21 days Reason for Consult/Visit: ostomy education Pt seen 12/31 Will follow up as appropriate for education Nani Mcelroy RN, BSN Wound Ostomy Nursing Consult Service Office: [phone] Pager: [phone] After hours Wound/Ostomy team pager : [phone] * Kalie Sibley MBBS - 12/31/2017 4:44 [...] with stress hyperglycemia A1c 6.5 , controlled GARAGE DOOR TECHNICIAN regimen: Metformin thousand milligrams twice a day, jardiance 25 mg daily Hypoglycemic episodes on this regimen: None and not checking blood sugars at home Follows up with for diabetes management: Primary care physician at [facility] Diabetic-complications assessment: Retinopathy: None Peripheral neuropathy: Yes on treatment Autonomic neuropathy: None Nephropathy: None Macrovascular complications: None Risk factor assessment: Last lipid profile - None on file On ACEi/ARB: Yes On Statin: yes 2. 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 Kalie Sibley Endocrine Fellow Pager # [phone] 12/31/2017 Associated attestation - Marco Payne MD [...] Text paged Harry Moore, Surgery Ortho resident education department chair ([phone]) to ask if they had considered an Endocrine consult to assist with managing blood glucose readings. Today pt's BG has ranged from 268 to 351 and with the exception of yesterday morning when pt was NPO for surgery, she has been that high for the last couple of days. Emma Payton, BSN, RN Clinical Nurse Coordinator - Diabetes Education Nursing Clinical Excellence [facility] [email or web address] [phone] office [phone] pager * Nneka Thompson RD - 12/29/2017 [...] Units/ sodium bicarbonate 650 mg (#) PRN (Technology Engineer from Rx) Electrolyte Treatments: None given yesterday [...] 12/14. 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 Pt's [...] fellow RD, all of Pt's intake of [place] shakes may not be included in the [...] start. TPN to be held in the [facility] fridge overnight until Pt has appropriate central [...] gm/kg DBW) Nneka Thompson MS, RD, LD, [facility] Pager [phone] Office [phone] * Anita Everett RN - 12/28/2017 1:43 [...] cut pouch. Explained to pt that an field artillery officer will start teaching once the stoma has been placed. Questions answered. Anita Everett, RN, BSN, CMSRN, CWON Wound Ostomy Nursing Consult Service Office: [phone] Pager: [phone] After Hours Wound/Ostomy Team Pager: [phone] * Emma See, RD - 12/28/2017 12:34 [...] Diet Order: Six Small Meals Oral Supplement: [place] Breakfast Essentials No Sugar Added, Protein Powder, TID Intake (calories) Daily Average : 600 kilocalories (35% est needs) Intake (protein) Daily Average : 33 grams (33% est needs) Current EN Order: Isosource 1.5 @ 80ml/hr x's 8 hrs (8735-5845). At goal will provide: 960 kcal (58% [...] counted as part of leslie count. Recommendation: [id number] Consistent Carb Diet. Protein shakes between meals, made with [place] Breakfast Essentials (NO SUGAR ADDED), skim milk, [...] Within 72 Hours Status: Not met;Ongoing Emma See RD #[phone]. * Emma Payton, SANJAY - 12/28/2017 12:30 PM CDT Associated Order(s): [...] how she struggles to manage her diabetes. Bobj Developer offered to follow up with instruction of [...] - Diabetes Education Nursing Clinical Excellence [facility] [email or web address] [phone] office [phone] pager * Emma Payton RN - 12/28/2017 8:06 AM CDT Bobj Developer spoke with Dr. Marcelino with consulted medicine [...] Name: Beata Kaiser Admit Date: 12/13/2017 Room: [place] [address] Reason for consult, "Hemipelvectomy, chronic pain, acute [...] medications and calcintonin. Virgen K, Anastasiia S, Littlerock T, Predavidl H, Castro C, Catarina M, et al. Prevention of phantom limb pain and cortical reorganization in the early phase after amputation in humans. Soc Neurosci Abstr 2001; 28: 022672 NMDA antagonist memantine was used with good results perioperative and acute post-operatively. Calcitonin in phantom limb pain: a double-blind study Author: Ashwin Johnson Journal: Pain ([place]) ISSN: [id number] Date: 09/1991 Volume: 48 Issue: 1 Starting page number: [phone] Calcitonin infusions also showed good outcomes with [...] - Gabapentin 800 mg PO twice daily, 2200-6788 - Gabapentin 600 mg PO twice daily, 2152-6426 Anticipated D/C Planning: Non-pharmacological interventions. Multi-modal oral pain regimen. Summary: Ms. 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 Thank you for allowing our service to participate in the care of this patient. Please page with questions/concerns, team pager [phone]. Jasper Betts, MSN, RN- Clinical Nurse Coordinator Pain Management [phone] Current Medication Regimen: Current Facility-Administered Medications: acetaminophen [...] Adrienne Zarate MD, 25 mg at 12/19/17 7351 fentaNYL citrate PF (SUBLIMAZE) injection 50-100 mcg, [...] filled at one pharmacy. Last prescriptions written, [facility] [phone] [facility] [address] Dr[address] Colton Welch 12/03/2017 1 12/03/2017 OXYCODONE HCL 5 MG TABLET 75.0 7 CA ARTI [id number] [facility] ( 4402) Assessment: (W) Words to describe pain: Burning, I can still feel my leg and foot (I) Intensity of pain: severe Patient's personal pain goal: mild (L) Location of pain: Left lower extremity (D) Duration of pain: constant (A) Aggravating/Alleviating factors: Constant / not much, I think gabapentin is helping Last Bowel Movement: 12/26/2017 Opioid Calculations: Date: GARAGE DOOR TECHNICIAN PT to surgery Oxycodone 60 mg Total [...] plan of care. Ramos Cheatham DO Pager: [phone] ATTESTATION I personally performed the banuelos portions [...] 0401) POC Glucose (Download): (!) 215 (12/26/17 1746) Ramos Cheatham DO Pager:[phone] * Nneka Thompson RD - 12/25/2017 4:52 [...] wt of 55.3kg.) Oral Diet Order: Diabetic 5418-4294 Kcal/day (60 g Carb/meal, 30 g Carb/HS [...] 12/14. 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 (Pt's [...] 72 Hours Nneka Thompson MS, RD, LD, [facility] Pager [phone] Office [phone] * Halima Miranda - 12/24/2017 3:42 PM CDT Associated Order(s): CONSULT PSYCHOLOGY Formatting of this note may be different from the original. 6799-1171 Pt was seen b/s for initial eval with no family or significant others present. Diagnosis: F33.0 Major depressive disorder, recurrent, mild; F41.1 Generalized anxiety disorder Requesting Physician:Elliot/Ashkan Reason for Request: Depression, coping Relevant History: The following history was taken from available medical records unless otherwise indicated. Pt is a 52 y.o., , female, RH admitted on 12/13/2017 to [facility] for a scheduled hemipelvectomy and cystoscopy [...] and 2 of her adult children in [place], [place]. Pt identified her grandchildren and family [...] Ph.D. Neurorehabilitation Psychology Postdoctoral Fellow Pager #: [phone] * Nani Mcelroy RN - 12/23/2017 1:53 [...] Type:: Wound Description (Comments): Wound Base Assessment Moist;[place];Yellow 12/23/2017 1:00 PM Surrounding Skin Assessment [place];Edema 12/23/2017 1:00 PM Wound Length (cm) (Wound [...] BSN Wound Ostomy Nursing Consult Service Office: [phone] Pager: [phone] After hours Wound/Ostomy team pager : [phone] * Berto Caldwell, - 12/23/2017 12:20 PM CDT Associated Order(s): CONSULT ADULT PSYCHIATRY PHYSICIAN Formatting of this note may be different from the original. PSYCHIATRY CONSULT NOTE Room/Bed: ZG0396/01 Admission Date: 12/13/2017 LOS: 10 days Consult [...] between 8am and 3pm on weekends at [phone]. Otherwise, page the residential lawn specialist education department chair. Chief Concern: "feeling a little disoriented" History [...] Notes having 3 grandchildren. Was working making [employer] at the [employer]. Social History Social History Marital status: Spouse [...] fair, appropriate for conversation Cognition: average Language: maltese, fluent Fund of knowledge and vocabulary: average [...] and between 8am and 3pm on weekends [phone]. Otherwise, page the residential lawn specialist education department chair. Staff name: Adrienne Negron, Date: 12/23/2017 * Nani Lynch DO - [...] Nani Lynch, Division of Infectious Diseases Pager [phone] History of Present Illness Beata Kaiser is [...] status/area of residence: lives with her Job/occupation: [employer] Travel history: [place] in Sep 2016 Environmental/outdoor/food exposures: hospitalized from [...] Signs: 24 Hour Range BP: 117/64 (12/22 132) Temp: 37.6 C (99.7 F) (12/22 102) [...] atelectasis and/or pneumonia. Dominique Nelson MD Pager [phone] Infectious Diseases Fellow * Nani Mcelroy RN [...] and non-insulin dependent diabetes mellitus admitted to [facility] on 12/13/17 for scheduled left hemipelvectomy [...] BSN Wound Ostomy Nursing Consult Service Office: [phone] Pager: [phone] After hours Wound/Ostomy team pager : [phone] * Luis Sargent MD - 12/21/2017 9:49 AM CDT Associated Order(s): CONSULT INTERNAL MEDICINE PHYSICIAN Formatting of this note may be different from the original. General Consult Note Admission Date: 12/13/2017 LOS: 8 days Reason for Consult: Hyponatremia Consult type: Opinion with orders Assessment/Plan Beata Kaiser is a 52 y.o. female Hx of hypothyroidism and non-insulin dependent diabetes mellitus who presented to [facility] on 12/13/17 for scheduled left hemipelvectomy [...] needs further assistance, the service should page [phone] (24 hours a day/7 days a week) to discuss the case. History of Present Illness: Beata Kaiser is a 52 y.o. female Hx of hypothyroidism and non-insulin dependent diabetes mellitus who presented to [facility] on 12/13/17 for scheduled left hemipelvectomy [...] Pertinent radiology reviewed. Luis Sargent MD Pager [phone] * Hawk Jennings MD - 12/20/2017 11:12 AM CDT Associated Order(s): CONSULT REHABILITATION MEDICINE PHYSICIAN Formatting of this note may be different from the original. Physical Medicine & Rehabilitation Consult Note Date of Service: 12/20/2017 Beata Kaiser is a 52 y.o. female. : 1965 MRN# : [id number] Primary Insurance: [facility] Secondary Insurance: Tertiary Insurance: Financial Class: [...] a 52 y.o. female admitted to [facility] on 12/13/2017 with the following issues: S/p [...] acute inpatient rehabilitation. Other recommendations Impaired gait/mobility: GARAGE DOOR TECHNICIAN pt was independent Currently requiring total assist Will benefit from continued work with PT to address mobility deficits Impaired ADL: GARAGE DOOR TECHNICIAN pt was independent Currently requiring total assist [...] concerns. Hawk Jennings MD Rehab Consult Pager: [phone] History of Present Illness Hospital Course: Beata Kaiser is a 52 yo F who presented to [facility] on 12/13/17 for scheduled left hemipelvectomy [...] Pt has had ongoing pain issues since DISTILLERY MANAGER removed. Pt has been working with PT/OT [...] 110 (12/20 0800) Respirations: 19 PER MINUTE (12/20 0800) SpO2: 97 % (12/20 599) O2 Delivery: [...] 10:11 AM Attending physician * Ivette Wade APRN-CLAIRE - 12/20/2017 6:50 AM CDT Associated Order(s): CONSULT DNA ANALYST, DIRECTOR OF INSTRUMENTAL MUSIC Formatting of this note may be different from the original. Inpatient Psychiatric Clinical Nurse Specialist- Initial Consult Pt. Name: Beata Kaiser Room: [place] [address] LOS: 7 Reason for consult: Patient s/p [...] are any concerns or questions. Ivette Wade [facility] Pager [phone] Office [phone] * Vania Hay MD - 12/14/2017 7:33 [...] placed, anesthesia managing. Tylenol, PRN fentanyl, gabapentin, GARAGE DOOR TECHNICIAN buspar & wellbutrin CV: Currently HDS, no [...] dry Intake/Output Summary (Last 24 hours) at 12/14/171933 Last data filed at 12/14/17 1836 Gross [...] MIN PRN Current Infusions: Glucose Monitoring: Glucose: (!) 263 (12/14/17 165) Recent Laboratory Studies: Recent [...] -- 23.8 22.4 22.4 20.8* 19.2* 17.8* [id number] -- -- -- -- 98.8 99.2* 99.1* 99.0 99.4* 97.0 aVnia Hay MD Pager: [phone] Associated attestation - Ken Carolina MD - 12/15/2017 2:24 AM CDT Formatting of this note may be different from the original. ATTESTATION I personally observed the resident performing the E/M, discussed case with resident, and concur with resident documentation of history, physical assessment and treatment plan unless otherwise noted. Staff name: Ken Carolina MD Date: 12/15/2017 Acute pain - [...] Date: 01/14/2018 Plan Anticipate pt discharging to [facility] at 3:30pm. Micki reviewed EMR and met with team. Pt is medically stable to discharge to [facility]. Interventions ? Support Support: Pt/Family Updates re:POC or DC Plan Micki updated pt regarding discharge planning. ? Info or Referral Information or Referral to Community Resources: Diagnosis-Related Community Resources ? Discharge Planning Micki spoke with Julia in admissions at [facility]. Insurance authorization has been received. Pt will be transported in a stretcher van at 3:30pm. Micki updated team on discharge planning. ? Medication Needs ? Financial ? Legal ? Other Disposition ? Expected Discharge Date Expected Discharge Date: 01/14/18 Expected Discharge Time: 1530 ? Transportation Does the patient need discharge transport arranged?: No Transportation Name, Phone and Availability #1: Lowell Kaiseran. Transportation Name, Phone and Availability #2: [phone]. Does the patient use Medicaid Transportation?: No ? Next Level of Care (Acute Psych discharges only) ? Discharge Disposition Durable Medical Equipment No service has been selected for the patient. Destination - Selection Complete Service Request Status Selected Specialties Address Phone Number Fax Number [facility] Selected Inpatient Rehabilitation Facility [address] [place] [address] [phone] Home Care No service has been selected [...] authorization was submitted yesterday. 0943: Per Erika (MICKI) no concerns with primary team re: increase temp and tachycardia. Informed MICKI that discussed case with hospital medical assistant as well and no concerns at this time. Per MICKI patient is getting wound vac dressing change at 1000 this morning. MICKI aware that still waiting on insurance authorization. 1359: Per Gissell (UR/CM for [facility]) patient has been approved for inpatient rehab. 1422: Notified Erika (MICKI) that rehab able to admit today. Transportation will be scheduled for 1530 via stretcher van with [facility]. MICKI to notify patient's primary RN of discharge time, rehab bed assignment of [phone] and unit phone# for report (). Please leave in any functioning IV access for transition to 's IP rehab unit. URMILA Catalan RN Inpatient Rehab Admission Nurse ([phone]) * Patient Education - Amanda Juares - [...] Date: 01/11/2018 Plan Anticipate pt discharging to [facility] when medically stable. Micki reviewed EMR and met with team. Pt to have wound vac changed on W and F. Pt will need to be off all IV pain meds, and continuous fluids prior to admission at [facility]. Interventions ? Support Support: Pt/Family Updates [...] Kaiser. Transportation Name, Phone and Availability #2: [phone]. Does the patient use Medicaid Transportation?: No [...] Luther MD - 01/11/2018 11:24 AM CDT [address] [address] PATIENT NAME: BEATA KAISER MR#/PT#: [id number] Page 2 OPERATIVE REPORT DATE OF OPERATION: 01/10/2018 SURGEON: Tamiko Luther MD INSURANCE COUNSEL(S): Adrienne Zarate MD PREOPERATIVE DIAGNOSIS: Draining wound, [...] ESTIMATED BLOOD LOSS: Minimal. SPECIMENS REMOVED: none Tamiko Luther MD KJT / MEDQ /[id number] cc: - Tamiko Luther MD * Anesthesia [...] capsule 400 mg 400 mg Oral TID (17) gabapentin (NEURONTIN) capsule 800 mg 800 mg [...] Units/ sodium bicarbonate 650 mg(#) PRN ( Technology Engineer from Rx), simethicone Q6H PRN Diagnostic Tests [...] 52 y.o. female : 1965 MRN# : [id number] DATE OF OPERATION: 01/10/2018 Date: 01/10/2018 Preoperative Dx: Chondrosarcoma (HCC) [C41.9] Post-op Diagnosis * Chondrosarcoma (HCC) [C41.9] Procedure(s) (LRB): WOUND EXPLORATION LEFT HEMIPELVECTOMY, IRRIGATION AND DEBRIDEMENT, WOUND VAC PLACEMENT (Left) CYSTOGRAM, MELCHOR CATHETER EXCHANGE Anesthesia Type: Defer to Anesthesia Surgeon(s) and Role: * Adrienne Zarate MD - Resident - Assisting * Specner Purcell MD - Co-Surgeon * Davey Dove [...] PACU - stable Adrienne Zarate MD Pager [phone] Associated attestation - Tamiko Luther MD - 02/07/2018 1:54 PM CDT I performed the procedure with the resident. * Operative Report (DICTATED ONLY) - Spencer Purcell MD - 01/10/2018 10:06 AM CDT Formatting of this note may be different from the original. THE [address] [address] PATIENT NAME: BEATA KAISER MR#/PT#: [id number] Page 2 OPERATIVE REPORT DATE OF OPERATION: 01/10/2018 SURGEON: Spencer Purcell MD INSURANCE COUNSEL(S): Davey Dove MD PREOPERATIVE DIAGNOSIS: Chondrosarcoma. POSTOPERATIVE [...] exchanged under sterile technique for a 22- Guamanian catheter with 10 mL sterile water in [...] Dictated by: Davey Dove MD / URIEL /[id number] cc: - Spencer Purcell MD * Care [...] does not refuse bed baths. * Care Kala - Denise Ortega - 01/08/2018 3:31 PM CDT Problem: Self-Care Deficit Goal: Maximize ADL functioning Outcome: Goal Ongoing The patient has been educated regarding the importance of continuing ADL mobility and is actively encouraged to participate in OT daily. The patient practices self-advocacy and OT schedules are agreed upon by the patient and discussed with the providers. * Care Kala - Denise Ortega - 01/08/2018 3:29 PM [...] IS 10 times/hour. * Case Mgmt DC Kala - Julia Young RN - 01/07/2018 3:44 PM CDT Notified by Erika EAGLE) that patient will potentially be ready for d/c on Wednesday. Per MICKI plan is for patient to get a wound vac on Petr. Patient continues to have the corpak (nocturnal feeds only) and GI will be consulted for further nutrition management. FLAVIA CatalanN RN Inpatient Rehab Admission Nurse ([phone]) * Patient Education - ShannonDenise perea - [...] RN * Case Mgmt DC Plan - DebbiErika barrow - 01/05/2018 3:04 PM CDT Formatting of this note may be different from the original. Case Management Progress Note NAME:Beata Kaiser : AGE: 52 y.o. ADMISSION DATE: 12/13/2017 DAYS ADMITTED: LOS: 23 days Todays Date: 01/05/2018 Plan Anticipate pt discharging to [facility] when medically stable. Micki reviewed EMR and met with team. Pt may receive wound vac- continued concerns with draining. Interventions ? Support Support: Pt/Family Updates re:POC or DC Plan ? Info or Referral Information or Referral to Community Resources: Diagnosis-Related Community Resources Micki met with pt and pt's sister Anita at bedside and provided packet on information regarding applying for SSD. ? Discharge Planning ? Medication Needs ? Financial ? Legal ? Other Disposition ? Expected Discharge Date Expected Discharge Date: 01/07/18 ? Transportation Does the patient need discharge transport arranged?: No Transportation Name, Phone and Availability #1: Marvin Kaiser. Transportation Name, Phone and Availability #2: [phone]. Does the patient use Medicaid Transportation?: No [...] Young RN - 01/04/2018 4:38 PM CDT 1721-3251: Provided patient with verbal and written education re: 's rehab facility. Information included: members of the [...] DME: none Discharge Support: Marvin () works director multimedia on the weekends Wednesday, Wednesday, Wednesday 6am-6pm, has an 18 y/o and lives with patient and is (due in February, both can not provide physical assist), 30 y/o daughter ( works director multimedia) and boyfriend also lives with patient and can not provide physical assist. 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 Enjoys fishing, doing yard work and being outdoors Goal(s): 1. Short term goals: "be as independent as possible" 2. skilled nursing goals: "can't think of anything" Other: 1. [...] URMILA Catalan RN Inpatient Rehab Admission Nurse ([phone]) * Case Mgmt DC Plan - Julia [...] to make definitive recommendations." Will f/u with . 0904: Updated Erika Forman () re: chart review. Per SW patient will not be ready for d/c until Wednesday. URMILA Catalan RN Inpatient Rehab Admission Nurse ([phone]) * Patient Education - Amanda Juares - [...] (TPN) 65 mL/hr at 12/30/172027 fentaNYL (SUBLIMAZE) DISTILLERY MANAGER 550 mcg/ NS 55 mL infusion syr (std conc)(premade ) lactated ringers infusion Stopped (12/30/17 1440) PRN and Respiratory Meds:alum/mag hydroxide/simeth Q6H PRN, calcium carbonate Q4H PRN, diazePAM Q6H PRN, diphenhydrAMINE Q6H PRN OR [DISCONTINUED] diphenhydrAMINE Q6H PRN, fentaNYL citrate PF Q1H PRN, naloxone PRN, ondansetron (ZOFRAN) IV Q6H PRN, oxyCODONE Q3H PRN, pancrelipase 20,000 Units/ sodium bicarbonate 650 mg(#) PRN (Technology Engineer from Rx) Diagnostic Tests Hematology: Lab Results [...] may be different from the original. THE [address] [address] PATIENT NAME: BEATA KAISER MR#/PT#: [id number] Page 3 OPERATIVE REPORT DATE OF OPERATION: 12/30/2017 SURGEON: Aimee Mccollum DO INSURANCE COUNSEL(S): DO Montez Coyne DO PREOPERATIVE DIAGNOSIS: Nonhealing [...] left upper quadrant that was previously marked. Alrine clamps were then used to elevate this area of the skin. This was then divided all the way down through the skin to the level of the fascia. Muscle sparing technique was then used and we then sharply dissected down through the anterior and posterior wall fascia with 2 fingerbreadths of width noted. [place] clamp was then used to grasp the [...] Dictated by: Herberth Dean DO / MEDPing /[id number] cc: - Aimee Mccollum DO * Procedures (Immed Post or Bedside) - Montez Agudelo DO - 12/30/2017 11:42 AM CDT Formatting of this note may be different from the original. Brief Operative Note Name: Beata Kaiser is a 52 y.o. female : 1965 MRN# : [id number] DATE OF OPERATION: 12/30/2017 Date: 12/30/2017 Preoperative [...] PACU - stable Montez Agudelo DO Pager [phone] * Case Mgmt DC Plan - Erika Werner - 12/29/2017 3:58 PM CDT Formatting of this note may be different from the original. Case Management Progress Note NAME:Beata Kaiser : AGE: 52 y.o. ADMISSION DATE: 12/13/2017 DAYS ADMITTED: LOS: 16 days Todays Date: 12/29/2017 Plan Pt to OR for colostomy tomorrow. Anticipate pt discharging to [facility] when medically stable. Sw reviewed EMR and met with team. Interventions ? Support Support: Pt/Family Updates re:POC or DC Plan Sw met with pt, pt's , and pt's daughter Mica. Pt is now interested in [facility] at discharge. ? Info or Referral ? Discharge Planning Sw called Julia in admissions at [facility]- pt is on the list for Wednesday next week. ? Medication Needs ? Financial ? Legal ? Other Disposition ? Expected Discharge Date Expected Discharge Date: 01/03/18 ? Transportation Does the patient need discharge transport arranged?: No Transportation Name, Phone and Availability #1: Marvin Kaiser. Transportation Name, Phone and Availability #2: [phone]. Does the patient use Medicaid Transportation?: No [...] place. * Case Mgmt DC Plan - Erika Werner - 12/28/2017 2:07 PM CDT Formatting of [...] Kaiser. Transportation Name, Phone and Availability #2: [phone]. Does the patient use Medicaid Transportation?: No [...] Kaiser. Transportation Name, Phone and Availability #2: [phone]. Does the patient use Medicaid Transportation?: No ? Next Level of Care (Acute Psych discharges only) ? Discharge Disposition Durable Medical Equipment No service has been selected for the patient. Destination No service has been selected for the patient. Home Care No service has been selected for the patient. Dialysis/Infusion No service has been selected for the patient. Erika Werner LMSW *[phone] * Critical Results - Emely Paredes - 12/24/2017 10:48 AM CDT Critical result or procedure called (document test and value, and read back): Positive blood cultures on right arm drawn /5 at 1305. Gram positive cocci resembling Strep. Time MD/SUPERVISOR JOINERS Notified: 1048 MD/SUPERVISOR JOINERS Name: Dr. Zarate notified at this time MD/SUPERVISOR JOINERS Response/Orders Given: calling infectious disease to notify [...] to SNF pending acceptance, when medically stable. iMcki reviewed EMR and met with team. Team [...] Kaiser. Transportation Name, Phone and Availability #2: [phone]. Does the patient use Medicaid Transportation?: No [...] Plan Sw met with pt at bedside regarding discharge planning. [facility] is out of network. provided pt with in network lists of SNF in both [place] area and near pt's home. Sw will follow up with pt tomorrow. ? Info or Referral ? Discharge Planning Sw tasked [facility] to email list of in network facilities to Sw. ? Medication Needs ? Financial ? Legal ? Other Disposition ? Expected Discharge Date Expected Discharge Date: 12/27/17 ? Transportation Does the patient need discharge transport arranged?: No Transportation Name, Phone and Availability #1: Marvin Kaiser. Transportation Name, Phone and Availability #2: [phone]. Does the patient use Medicaid Transportation?: No [...] Alanna Robertson - 12/22/2017 2:43 PM CDT [facility] Note Emailed [facility] with a in-network list of SNF facilities per the request of ZULEIKA Redd [facility] For additional assistance please contact ZULEIKA Redd *[phone] * Patient Education - Hawk Ortega RN [...] [facility] a [facility] [place], as they are from there. Family has not had time to review other options. Sw faxed referral to [facility]. Address: [address] [place] [phone] Primary Sw will continue to follow for discharge planning. ? Medication Needs ? Financial ? Legal ? Other Disposition ? Expected Discharge Date Expected Discharge Date: 12/23/17 ? Transportation Does the patient need discharge transport arranged?: No Transportation Name, Phone and Availability #1: Marvin Kaiser. Transportation Name, Phone and Availability #2: [phone]. Does the patient use Medicaid Transportation?: No [...] to placement, pending acceptance, when medically stable. Micki reviewed [...] Kaiser. Transportation Name, Phone and Availability #2: [phone]. Does the patient use Medicaid Transportation?: No [...] of pain Outcome: Goal Ongoing Encourage Epidural DISTILLERY MANAGER Problem: Tissue Perfusion, Altered Goal: Adequate tissue [...] may be different from the original. THE [address] [address] PATIENT NAME: BEATA KAISER MR#/PT#: [id number] Page 3 OPERATIVE REPORT DATE OF OPERATION: 12/14/2017 SURGEON: Spencer Purcell MD INSURANCE COUNSEL(S): Sarah Schwab MD PREOPERATIVE DIAGNOSIS: Left retroperitoneal/pelvic [...] with all pressure points padded. A lubricated 21-Guamanian cystoscope with 21-Guamanian sheath was assembled and placed in the bladder. 360 degree panendoscopy was performed. There was no masses or lesions present. There was no stone, diverticula, trabeculations, or signs of malignancy within the bladder itself. Both ureteral orifices were identified. The left ureteral orifice was intubated with a 0.38 sensor wire and advanced into the kidney. This was then intubated with a 5-Guamanian Pollack catheter, which was placed over the wire and then deployed. A 16-Guamanian Melchor catheter was placed in the bladder [...] subsequent muscle and cutaneous flap created. The 16-Guamanian catheter, which was seen in place revealed [...] structures and alteration in anatomy. A new 20-Guamanian catheter was placed in the bladder and infused with saline and found to have no evidence of extravasation. We then turned the remainder of the case over to the orthopedic surgery service. ESTIMATED BLOOD LOSS: 100 cc SPECIMENS REMOVED: None ATTESTATION I performed this procedure with a resident. Staff name: Spencer Purcell MD Date: 01/03/2018 Spencer Purcell MD SHAHBAZ / MEDQ /[id number] cc: - Spencer Purcell MD * Procedures [...] patient and/or family and/or designated Power of Auto Mechanic. I personally accomplished the pre-operative Time Out. I was personally present for the critical portions of the procedure. I directly observed the resident physician performing other appropriate portions of the procedure, discussed the case with the resident physician, and concur with the resident physician's documentation of the procedure, unless otherwise noted. Harris Hurst MD PhD GALA FACS Surgical Critical Care Pager [phone] Date: 12/16/2017 * Operative Report (DICTATED ONLY) - Tamiko Luther MD - 12/15/2017 2:29 PM CDT [address] [address] PATIENT NAME: BEATA KAISER MR#/PT#: [id number] Page 2 OPERATIVE REPORT DATE OF OPERATION: 12/14/2017 SURGEON: Tamiko Luther MD CO-SURGEON(S): MD Aimee Brambila DO Kirk Hance, MD Axel Thors, DO INSURANCE COUNSEL(S): Adrienne Zarate MD PREOPERATIVE DIAGNOSIS: Intermediate to [...] vessels were identified. Dr. Tirado and Dr. Mlaagon of Vascular Surgery were then involved with [...] ( permanent) MD SARAH Guy / URIEL /[id number] cc: - Tamiko Luther MD - Spencer [...] MINUTE (12/15 07) SpO2: 92 % (12/15 07) O2 Delivery: None (Room Air) (12/15 699) SpO2 Pulse: 125 (12/15 0700) Patient History Allergies Allergies Allergen Reactions Cephalexin [...] tube QDAY before breakfast Continuous Infusions: bupivacaine DISTILLERY MANAGER PNC 0.125% infusion syringe HYDROmorphone (DILAUDID) DISTILLERY MANAGER 11 mg/NS 55mL infusion syr (std conc)(premade [...] 52 y.o. female : 1965 MRN# : [id number] DATE OF OPERATION: 12/14/2017 Date: 12/14/2017 Preoperative [...] much as possible Adrienne Zarate MD Pager [phone] Associated attestation - Tamiko Luther MD - 12/24/2017 1:37 PM CDT I performed the hemipelvectomy and hemisacrectomy with the resident. 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 POSTOPERATIVE DIAGNOSIS: Same. OPERATIVE PROCEDURE: 1. Repair of the left common and external iliac vein by direct venous repair within the abdominal cavity and pelvis (CPT code 13888). 2. Mobilization and exposure of the common [...] COMPLICATIONS: None. Pio Malagon DO AT / MEDQ /[id number] cc: - Pio Malagon DO * Operative Report (Direct Entry) - Spencer Purcell MD - 12/14/2017 8:36 AM CDT Formatting of this note may be different from the original. OPERATIVE REPORT Name: Beata Kaiser is a 52 y.o. female : 1965 MRN# : [id number] DATE OF OPERATION: 12/14/2017 Surgeon(s) and Role: [...] of the procedure. Darius Dejesus MD Pager [phone] ATTESTATION I performed this procedure with a resident. Staff name: Spencer Purcell MD Date: 01/03/2018 * Case Mgmt [place] Andra Haney RN - 12/13/2017 11:04 AM CDT Case Management Admission Assessment NAME:Beata Kaiser [...] with questions or concerns. Patient Address/Phone [address] [facility] [address] (home) Emergency Contact Extended Emergency Contact Information Primary Emergency Contact: Marvin Kaiser [facility] Relation: Spouse Secondary Emergency Contact: Lynn Kaiser [facility] Relation: Daughter Healthcare Directive None on file. Transportation Does the patient need discharge transport arranged?: No Transportation Name, Phone and Availability #1: Marvin Kaiser. Transportation Name, Phone and Availability #2: [phone]. Does the patient use Medicaid Transportation?: No [...] Resources ? Coverage Primary Insurance: Commercial insurance ([facility]/ [facility] PPO.) ? 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 Financial Assistance Needed? None at this time. Psychosocial Needs ? Mental Health Mental Health History: No ? Substance Use History Substance Use History Screen: No ? Other None. Current/Previous Services ? PCP Della Cuellar, , ? Pharmacy [address] [address] ? Durable Medical Equipment Durable Medical Equipment [...] In the past Name of rehab location/group: [facility]. Would patient return for future services?: Yes OT: No EDI SPECIALIST: No ? Residential Facility/Assisted SNF: No NH: No ? Inpatient Rehab IPR: No ? Long-Term Acute Care Hospital LTACH: No ? Acute Hospital Stay Acute Hospital Stay: In the past Was patient's stay within the last 30 days?: Yes When did patient receive care?: 2 weeks ago. Name of hospital: [facility]. Andra Tejada RN, BSN, MSN Integrative Nurse Allergy Specialist Pager [phone] in this encounter Plan of Treatment Date [...] procedure are in the results section. ECG-SCAN 01/02/2018 Results for this 7:45 PM [...] MG/DL Specimen Performing Laboratory MAIN LAB [address] [place] [address] * POC GLUCOSE (01/14/2018 7:16 AM) Component Value Ref Range Glucose, POC 144 (H) 70 - 100 MG/DL Specimen Performing Laboratory MAIN LAB [address] [place] [address] * LIVER FUNCTION PANEL (01/14/2018 4:40 AM) [...] 8.0 G/DL Specimen Performing Laboratory MAIN LAB [address] [place] [address] * BASIC METABOLIC PANEL (01/14/2018 4:40 AM) [...] questions. Specimen Performing Laboratory Blood MAIN LAB [address] [place] [address] * CBC (01/14/2018 4:40 AM) Component Value [...] FL Specimen Performing Laboratory Blood MAIN LAB [address] [place] [address] * POC GLUCOSE (01/14/2018 2:54 AM) Component Value Ref Range Glucose, POC 218 (H) 70 - 100 MG/DL Specimen Performing Laboratory MAIN LAB [address] [place] [address] * POC GLUCOSE (01/13/2018 9:07 PM) Component Value Ref Range Glucose, POC 125 (H) 70 - 100 MG/DL Specimen Performing Laboratory MAIN LAB [address] [place] [address] * POC GLUCOSE (01/13/2018 5:46 PM) Component Value Ref Range Glucose, POC 136 (H) 70 - 100 MG/DL Specimen Performing Laboratory MAIN LAB [address] [place] [address] * POC GLUCOSE (01/13/2018 12:09 PM) Component Value Ref Range Glucose, POC 89 70 - 100 MG/DL Specimen Performing Laboratory MAIN LAB [address] [place] [address] * POC GLUCOSE (01/13/2018 7:40 AM) Component Value Ref Range Glucose, POC 111 (H) 70 - 100 MG/DL Specimen Performing Laboratory MAIN LAB [address] [place] [address] * BASIC METABOLIC PANEL (01/13/2018 3:42 AM) [...] Pharmacist for questions. Specimen Performing Laboratory Blood [facility] [address] [place] [address] * CBC (01/13/2018 3:42 AM) Component Value [...] - 11 FL Specimen Performing Laboratory Blood [facility] [address] [place], [place] [id number] * TRIGLYCERIDE (01/13/2018 3:42 AM) Component Value Ref Range Triglycerides 254 (H) <150 MG/DL Specimen Performing Laboratory Blood [facility] [address] [place] [address] * POC GLUCOSE (01/13/2018 2:33 AM) Component Value Ref Range Glucose, POC 200 (H) 70 - 100 MG/DL Specimen Performing Laboratory [facility] [address] [place], [place] [id number] * POC GLUCOSE (01/12/2018 10:39 PM) Component Value Ref Range Glucose, POC 87 70 - 100 MG/DL Specimen Performing Laboratory [facility] [address] [place] [address] * POC GLUCOSE (01/12/2018 5:55 PM) Component Value Ref Range Glucose, POC 107 (H) 70 - 100 MG/DL Specimen Performing Laboratory [facility] [address] [place] [address] * POC GLUCOSE (01/12/2018 12:24 PM) Component Value Ref Range Glucose, POC 67 (L) 70 - 100 MG/DL Specimen Performing Laboratory [facility] [address] [place] [address] * POC GLUCOSE (01/12/2018 7:42 AM) Component Value Ref Range Glucose, POC 141 (H) 70 - 100 MG/DL Specimen Performing Laboratory [facility] [address] [place], [place] [id number] * BASIC METABOLIC PANEL (01/12/2018 6:12 AM) [...] Pharmacist for questions. Specimen Performing Laboratory Blood [facility] [address] [place] [address] * CBC (01/12/2018 6:12 AM) Component Value [...] - 11 FL Specimen Performing Laboratory Blood [facility] [address] [place], [place] [id number] * POC GLUCOSE (01/12/2018 2:17 AM) Component Value Ref Range Glucose, POC 184 (H) 70 - 100 MG/DL Specimen Performing Laboratory [facility] [address] [place] [address] * POC GLUCOSE (01/11/2018 8:39 PM) Component Value Ref Range Glucose, POC 196 (H) 70 - 100 MG/DL Specimen Performing Laboratory [facility] [address] [place] [address] * POC GLUCOSE (01/11/2018 5:08 PM) Component Value Ref Range Glucose, POC 128 (H) 70 - 100 MG/DL Specimen Performing Laboratory [facility] [address] [place], [place] [id number] * POC GLUCOSE (01/11/2018 11:27 AM) Component Value Ref Range Glucose, POC 160 (H) 70 - 100 MG/DL Specimen Performing Laboratory [facility] [address] [place] [address] * POC GLUCOSE (01/11/2018 7:17 AM) Component Value Ref Range Glucose, POC 218 (H) 70 - 100 MG/DL Specimen Performing Laboratory MAIN LAB [address] [place] [address] * BASIC METABOLIC PANEL (01/11/2018 3:40 AM) [...] questions. Specimen Performing Laboratory Blood [facility]IN [facility] [address] [place] [address] * CBC (01/11/2018 3:40 AM) Component Value [...] FL Specimen Performing Laboratory Blood [facility]IN [facility] [address] [place] [address] * POC GLUCOSE (01/11/2018 3:33 AM) Component Value Ref Range Glucose, POC 199 (H) 70 - 100 MG/DL Specimen Performing Laboratory MAIN [facility] [address] [place] [address] * POC GLUCOSE (01/10/2018 8:45 PM) Component Value Ref Range Glucose, POC 297 (H) 70 - 100 MG/DL Specimen Performing Laboratory [facility] [address] [place] [address] * POC GLUCOSE (01/10/2018 6:05 PM) Component Value Ref Range Glucose, POC 290 (H) 70 - 100 MG/DL Specimen Performing Laboratory [facility] [address] [place] [address] * POC GLUCOSE (01/10/2018 1:53 PM) Component Value Ref Range Glucose, POC 140 (H) 70 - 100 MG/DL Specimen Performing Laboratory [facility] [address] [place] [address] * POC GLUCOSE (01/10/2018 10:49 AM) Component Value Ref Range Glucose, POC 87 70 - 100 MG/DL Specimen Performing Laboratory [facility] [address] [place] [address] * FLUORO MOBILE IN OR (01/10/2018 9:51 AM) Specimen Performing Laboratory [facility]ANT[facility] Yi This order has been auto finalized and does not contain a result. * POC GLUCOSE (01/10/2018 8:43 AM) Component Value Ref Range Glucose, POC 100 70 - 100 MG/DL Specimen Performing Laboratory [facility] [address] [place] [address] * POC GLUCOSE (01/10/2018 8:02 AM) Component Value Ref Range Glucose, POC 101 (H) 70 - 100 MG/DL Specimen Performing Laboratory [facility] [address] [place] [address] * POC GLUCOSE (01/10/2018 3:39 AM) Component Value Ref Range Glucose, POC 131 (H) 70 - 100 MG/DL Specimen Performing Laboratory [facility] [address] [place] [address] * TRIGLYCERIDE (01/10/2018 3:30 AM) Component Value Ref Range Triglycerides 195 (H) <150 MG/DL Specimen Performing Laboratory Blood [facility] [address] [place] [address] * BASIC METABOLIC PANEL (01/10/2018 3:30 AM) [...] questions. Specimen Performing Laboratory Blood MAIN LAB [address] [place] [address] * CBC AND DIFF (01/10/2018 3:30 AM) [...] K/UL Specimen Performing Laboratory Blood MAIN LAB [address] [place] [address] * POC GLUCOSE (01/09/2018 8:37 PM) Component Value Ref Range Glucose, POC 150 (H) 70 - 100 MG/DL Specimen Performing Laboratory MAIN [facility] [address] [place] [address] * POC GLUCOSE (01/09/2018 7:37 PM) Component Value Ref Range Glucose, POC 135 (H) 70 - 100 MG/DL Specimen Performing Laboratory [facility]IN LAB [address] [place] [address] * POC GLUCOSE (01/09/2018 6:20 PM) Component Value Ref Range Glucose, POC 135 (H) 70 - 100 MG/DL Specimen Performing Laboratory MAIN [facility] [address] [place] [address] * FREE T4 (FREE THYROXINE) ONLY (01/09/2018 1:40 PM) Component Value Ref Range T4-Free 0.9 0.6 - 1.6 NG/DL Specimen Performing Laboratory Blood MAIN LAB [address] [place] [address] * THYROID STIMULATING HORMONE-TSH (01/09/2018 1:40 PM) Component Value Ref Range TSH 16.790 (H) 0.35 - 5.00 MCU/ML Specimen Performing Laboratory Blood [facility] [address] [place] [address] * POC GLUCOSE (01/09/2018 1:25 PM) Component Value Ref Range Glucose, POC 102 (H) 70 - 100 MG/DL Specimen Performing Laboratory [facility] [address] [place] [address] * POC GLUCOSE (01/09/2018 8:12 AM) Component Value Ref Range Glucose, POC 150 (H) 70 - 100 MG/DL Specimen Performing Laboratory MAIN LAB [address] [place] [address] * BASIC METABOLIC PANEL (01/09/2018 3:17 AM) [...] questions. Specimen Performing Laboratory Blood MAIN LAB [address] [place] [address] * CBC AND DIFF (01/09/2018 3:17 AM) [...] K/UL Specimen Performing Laboratory Blood MAIN LAB [address] [place] [address] * POC GLUCOSE (01/09/2018 3:14 AM) Component Value Ref Range Glucose, POC 154 (H) 70 - 100 MG/DL Specimen Performing Laboratory MAIN LAB [address] [place] [address] * POC GLUCOSE (01/08/2018 9:01 PM) Component Value Ref Range Glucose, POC 240 (H) 70 - 100 MG/DL Specimen Performing Laboratory MAIN LAB [address] [place] [address] * POC GLUCOSE (01/08/2018 6:20 PM) Component Value Ref Range Glucose, POC 123 (H) 70 - 100 MG/DL Specimen Performing Laboratory MAIN LAB [address] [place] [address] * POC GLUCOSE (01/08/2018 12:47 PM) Component Value Ref Range Glucose, POC 214 (H) 70 - 100 MG/DL Specimen Performing Laboratory MAIN LAB [address] [place] [address] * POC GLUCOSE (01/08/2018 7:49 AM) Component Value Ref Range Glucose, POC 113 (H) 70 - 100 MG/DL Specimen Performing Laboratory MAIN LAB [address] [place] [address] * BASIC METABOLIC PANEL (01/08/2018 3:22 AM) [...] Specimen Performing Laboratory Blood MAIN LAB [address] [place] [address] * CBC AND DIFF (01/08/2018 3:22 AM) [...] - 0.20 K/UL Specimen Performing Laboratory Blood [facility] [address] [place] [address] * POC GLUCOSE (01/08/2018 3:17 AM) Component Value Ref Range Glucose, POC 108 (H) 70 - 100 MG/DL Specimen Performing Laboratory [facility] [address] [place] [address] * POC GLUCOSE (01/07/2018 8:35 PM) Component Value Ref Range Glucose, POC 149 (H) 70 - 100 MG/DL Specimen Performing Laboratory [facility] [address] [place] [address] * POC GLUCOSE (01/07/2018 6:38 PM) Component Value Ref Range Glucose, POC 85 70 - 100 MG/DL Specimen Performing Laboratory [facility] [address] [place], [place] [id number] * POC GLUCOSE (01/07/2018 1:40 PM) Component Value Ref Range Glucose, POC 83 70 - 100 MG/DL Specimen Performing Laboratory [facility] [address] [place], [place] [id number] * POC GLUCOSE (01/07/2018 8:05 AM) Component Value Ref Range Glucose, POC 131 (H) 70 - 100 MG/DL Specimen Performing Laboratory [facility] [address] [place], [place] [id number] * POC GLUCOSE (01/07/2018 3:04 AM) Component Value Ref Range Glucose, POC 173 (H) 70 - 100 MG/DL Specimen Performing Laboratory [facility] [address] [place] [address] * LIVER FUNCTION PANEL (01/07/2018 3:02 AM) [...] Specimen Performing Laboratory Blood MAIN [facility] [address] [place] [address] * BASIC METABOLIC PANEL (01/07/2018 3:02 AM) [...] Specimen Performing Laboratory Blood MAIN [facility] [address] [place] [address] * CBC AND DIFF (01/07/2018 3:02 AM) [...] Performing Laboratory Blood [facility] [address] [place] [address] * POC GLUCOSE (01/06/2018 9:49 PM) Component Value Ref Range Glucose, POC 204 (H) 70 - 100 MG/DL Specimen Performing Laboratory [facility] [address] [place] [address] * POC GLUCOSE (01/06/2018 5:24 PM) Component Value Ref Range Glucose, POC 223 (H) 70 - 100 MG/DL Specimen Performing Laboratory [facility] [address] [place] [address] * POC GLUCOSE (01/06/2018 1:11 PM) Component Value Ref Range Glucose, POC 99 70 - 100 MG/DL Specimen Performing Laboratory [facility]IN [facility] [address] [place] [address] * CT ABD/PELV WO CONTRAST (01/06/2018 11:43 [...] Performing Laboratory MAIN LAB [address] [place] [address] * POC GLUCOSE (01/06/2018 2:58 AM) Component Value Ref Range Glucose, POC 194 (H) 70 - 100 MG/DL Specimen Performing Laboratory MAIN LAB [address] [place] [address] * BASIC METABOLIC PANEL (01/06/2018 2:52 AM) [...] Specimen Performing Laboratory Blood MAIN LAB [address] [place] [address] * CBC AND DIFF (01/06/2018 2:52 AM) [...] - 0.20 K/UL Specimen Performing Laboratory Blood [facility] [address] [place] [address] 75860 * TRIGLYCERIDE (01/06/2018 2:52 AM) Component Value Ref Range Triglycerides 243 (H) <150 MG/DL Specimen Performing Laboratory Blood [facility] [address] [place] [address] 03180 * POC GLUCOSE (01/05/2018 9:38 PM) Component Value Ref Range Glucose, POC 276 (H) 70 - 100 MG/DL Specimen Performing Laboratory MAIN [facility] [address] [place] [address] 76234 * POC GLUCOSE (01/05/2018 5:33 PM) Component Value Ref Range Glucose, POC 248 (H) 70 - 100 MG/DL Specimen Performing Laboratory [facility] [address] [place], [place] [id number] * POC GLUCOSE (01/05/2018 12:22 PM) Component Value Ref Range Glucose, POC 194 (H) 70 - 100 MG/DL Specimen Performing Laboratory [facility] [address] [place], [place] [id number] * POC GLUCOSE (01/05/2018 7:52 AM) Component Value Ref Range Glucose, POC 265 (H) 70 - 100 MG/DL Specimen Performing Laboratory [facility] [address] [place], [place] [id number] * BASIC METABOLIC PANEL (01/05/2018 3:04 AM) [...] Specimen Performing Laboratory Blood [facility] [address] [place] [address] 69177 * CBC AND DIFF (01/05/2018 3:04 AM) [...] K/UL Specimen Performing Laboratory Blood [facility] [address] [place], [place] [id number] * POC GLUCOSE (01/05/2018 2:44 AM) Component Value Ref Range Glucose, POC 279 (H) 70 - 100 MG/DL Specimen Performing Laboratory MAIN [facility] [address] [place] [address] 61645 * POC GLUCOSE (01/04/2018 8:58 PM) Component Value Ref Range Glucose, POC 325 (H) 70 - 100 MG/DL Specimen Performing Laboratory MAIN [facility] [address] [place] [address] 20506 * POC GLUCOSE (01/04/2018 3:22 PM) Component Value Ref Range Glucose, POC 278 (H) 70 - 100 MG/DL Specimen Performing Laboratory MAIN [facility] [address] [place] [address] 02862 * ALBUMIN (01/04/2018 11:55 AM) Component Value Ref Range Albumin 2.2 (L) 3.5 - 5.0 G/DL Specimen Performing Laboratory Blood [facility] [address] [place], [place] [id number] * PREALBUMIN (01/04/2018 11:55 AM) Component Value Ref Range Prealbumin 18.0 17 - 34 MG/DL Specimen Performing Laboratory Blood [facility] [address] [place] [address] * POC GLUCOSE (01/04/2018 7:50 AM) Component Value Ref Range Glucose, POC 233 (H) 70 - 100 MG/DL Specimen Performing Laboratory MAIN LAB [address] [place] [address] * BASIC METABOLIC PANEL (01/04/2018 2:45 AM) [...] Specimen Performing Laboratory Blood [facility] [address] [place] [address] * CBC (01/04/2018 2:45 AM) Component Value [...] FL Specimen Performing Laboratory Blood [facility] [address] [place] [address] * POC GLUCOSE (01/04/2018 2:39 AM) Component Value Ref Range Glucose, POC 208 (H) 70 - 100 MG/DL Specimen Performing Laboratory MAIN [facility] [address] [place] [address] 12336 * POC GLUCOSE (01/03/2018 8:21 PM) Component Value Ref Range Glucose, POC 255 (H) 70 - 100 MG/DL Specimen Performing Laboratory [facility] [address] [place] [address] 38033 * POC GLUCOSE (01/03/2018 4:53 PM) Component Value Ref Range Glucose, POC 221 (H) 70 - 100 MG/DL Specimen Performing Laboratory [facility] [address] [place], [place] [id number] * POC GLUCOSE (01/03/2018 2:44 PM) Component Value Ref Range Glucose, POC 168 (H) 70 - 100 MG/DL Specimen Performing Laboratory [facility] [address] [place], [place] [id number] * POC GLUCOSE (01/03/2018 7:51 AM) Component Value Ref Range Glucose, POC 119 (H) 70 - 100 MG/DL Specimen Performing Laboratory [facility] [address] [place], [place] [id number] * TRIGLYCERIDE (01/03/2018 5:10 AM) Component Value Ref Range Triglycerides 263 (H) <150 MG/DL Specimen Performing Laboratory Blood [facility] [address] [place] [address] * BASIC METABOLIC PANEL (01/03/2018 5:10 AM) [...] Pharmacist for questions. Specimen Performing Laboratory Blood [facility] [address] [place] [address] 89766 * CBC (01/03/2018 5:10 AM) Component Value [...] - 11 FL Specimen Performing Laboratory Blood [facility] [address] [place] [address] 51391 * MAGNESIUM (01/03/2018 5:10 AM) Component Value Ref Range Magnesium 1.8 1.6 - 2.6 mg/dL Specimen Performing Laboratory Blood [facility] [address] [place] [address] 37736 * PHOSPHORUS (01/03/2018 5:10 AM) Component Value Ref Range Phosphorus 2.2 2.0 - 4.0 MG/DL Specimen Performing Laboratory Blood [facility] [address] [place] [address] 82467 * POC GLUCOSE (01/03/2018 2:00 AM) Component Value Ref Range Glucose, POC 236 (H) 70 - 100 MG/DL Specimen Performing Laboratory [facility] [address] [place] [address] 81651 * POC GLUCOSE (01/02/2018 10:44 PM) Component Value Ref Range Glucose, POC 302 (H) 70 - 100 MG/DL Specimen Performing Laboratory [facility] [address] [place] [address] 15636 * POC GLUCOSE (01/02/2018 8:28 PM) Component Value Ref Range Glucose, POC 317 (H) 70 - 100 MG/DL Specimen Performing Laboratory [facility] [address] [place] [address] 23030 * ECG-SCAN (01/02/2018 7:45 PM) Narrative Ordered by an unspecified provider. * POC GLUCOSE (01/02/2018 5:35 PM) Component Value Ref Range Glucose, POC 242 (H) 70 - 100 MG/DL Specimen Performing Laboratory MAIN LAB [address] [place] [address] * POC GLUCOSE (01/02/2018 12:30 PM) Component Value Ref Range Glucose, POC 315 (H) 70 - 100 MG/DL Specimen Performing Laboratory MAIN LAB [address] [place] [address] * THYROID STIMULATING HORMONE-TSH (01/02/2018 9:45 AM) Component Value Ref Range TSH 12.590 (H) 0.35 - 5.00 MCU/ML Specimen Performing Laboratory Blood [facility] [address] [place] [address] * CREATININE-URINE RANDOM (01/02/2018 9:45 AM) Component Value Ref Range Creatinine, Random 20 MG/DL Specimen Performing Laboratory Urine [facility]IN [facility] [address] [place] [address] * SODIUM-URINE RANDOM (01/02/2018 9:45 AM) Component Value Ref Range Sodium, Random 15 MMOL/L Specimen Performing Laboratory Urine [facility] [address] [place] [address] * POC GLUCOSE (01/02/2018 7:49 AM) Component Value Ref Range Glucose, POC 280 (H) 70 - 100 MG/DL Specimen Performing Laboratory MAIN [facility] [address] [place] [address] * BASIC METABOLIC PANEL (01/02/2018 3:25 AM) [...] Pharmacist for questions. Specimen Performing Laboratory Blood [facility] [address] [place] [address] 65655 * CBC (01/02/2018 3:25 AM) Component Value [...] - 11 FL Specimen Performing Laboratory Blood [facility] [address] [place] [address] 15095 * MAGNESIUM (01/02/2018 3:25 AM) Component Value Ref Range Magnesium 1.9 1.6 - 2.6 mg/dL Specimen Performing Laboratory Blood [facility] [address] [place] [address] 61684 * PHOSPHORUS (01/02/2018 3:25 AM) Component Value Ref Range Phosphorus 1.7 (L) 2.0 - 4.0 MG/DL Specimen Performing Laboratory Blood [facility] [address] [place], [place] [id number] * POC GLUCOSE (01/02/2018 2:11 AM) Component Value Ref Range Glucose, POC 288 (H) 70 - 100 MG/DL Specimen Performing Laboratory [facility] [address] [place] [address] 73674 * POC GLUCOSE (01/01/2018 9:15 PM) Component Value Ref Range Glucose, POC 289 (H) 70 - 100 MG/DL Specimen Performing Laboratory [facility] [address] [place] [address] 53488 * POC GLUCOSE (01/01/2018 5:48 PM) Component Value Ref Range Glucose, POC 284 (H) 70 - 100 MG/DL Specimen Performing Laboratory [facility] [address] [place] [address] 27030 * POC GLUCOSE (01/01/2018 4:12 PM) Component Value Ref Range Glucose, POC 354 (H) 70 - 100 MG/DL Specimen Performing Laboratory MAIN LAB [address] [place] [address] 28873 * POC GLUCOSE (01/01/2018 1:36 PM) Component Value Ref Range Glucose, POC 386 (H) 70 - 100 MG/DL Specimen Performing Laboratory MAIN LAB [address] [place] [address] 95558 * POC GLUCOSE (01/01/2018 8:54 AM) Component Value Ref Range Glucose, POC 363 (H) 70 - 100 MG/DL Specimen Performing Laboratory MAIN LAB [address] [place] [address] 63257 * BASIC METABOLIC PANEL (01/01/2018 5:15 AM) [...] Pharmacist for questions. Specimen Performing Laboratory Blood [facility] [address] [place] [address] 31563 * CBC (01/01/2018 5:15 AM) Component Value [...] - 11 FL Specimen Performing Laboratory Blood [facility] [address] [place] [address] 99009 * MAGNESIUM (01/01/2018 5:15 AM) Component Value Ref Range Magnesium 2.0 1.6 - 2.6 mg/dL Specimen Performing Laboratory Blood [facility] [address] [place] [address] 53064 * PHOSPHORUS (01/01/2018 5:15 AM) Component Value Ref Range Phosphorus 2.9 2.0 - 4.0 MG/DL Specimen Performing Laboratory Blood [facility] [address] [place] [address] 29700 * POC GLUCOSE (01/01/2018 2:17 AM) Component Value Ref Range Glucose, POC 330 (H) 70 - 100 MG/DL Specimen Performing Laboratory [facility] [address] [place] [address] 30022 * TRANSFUSE RBC'S NON-BLEEDING PT (01/01/2018 2:11 AM) Specimen Performing Laboratory Blood * TRANSFUSE RBC'S NON-BLEEDING PT (01/01/2018 2:11 AM) Specimen Performing Laboratory Blood * POC GLUCOSE (12/31/2017 11:44 PM) Component Value Ref Range Glucose, POC 326 (H) 70 - 100 MG/DL Specimen Performing Laboratory [facility] [address] [place] [address] 97149 * POC GLUCOSE (12/31/2017 8:58 PM) Component Value Ref Range Glucose, POC 283 (H) 70 - 100 MG/DL Specimen Performing Laboratory [facility] [address] [place] [address] 58671 * TRANSFUSE RBC'S NON-BLEEDING PT (12/31/2017 6:22 PM) Specimen Performing Laboratory Blood * TRANSFUSE RBC'S NON-BLEEDING PT (12/31/2017 6:22 PM) Specimen Performing Laboratory Blood * POC GLUCOSE (12/31/2017 5:32 PM) Component Value Ref Range Glucose, POC 274 (H) 70 - 100 MG/DL Specimen Performing Laboratory [facility] [address] [place] [address] 97916 * TROPONIN-I (12/31/2017 4:57 PM) Component Value Ref Range Troponin-I 0.01 0.0 - 0.05 NG/ML Specimen Performing Laboratory Blood [facility] [address] [place], [place] [id number] * POC GLUCOSE (12/31/2017 1:59 PM) Component Value Ref Range Glucose, POC 299 (H) 70 - 100 MG/DL Specimen Performing Laboratory MAIN LAB [address] [place] [address] * TRANSFUSE RBC'S BLEEDING PT OR EXCHANGE TRANSFUSION (12/31/2017 1:15 PM) Specimen Performing Laboratory Blood * TRANSFUSE RBC'S BLEEDING PT OR EXCHANGE TRANSFUSION (12/31/2017 1:15 PM) Specimen Performing Laboratory Blood * POC GLUCOSE (12/31/2017 11:56 AM) Component Value Ref Range Glucose, POC 268 (H) 70 - 100 MG/DL Specimen Performing Laboratory MAIN LAB [address] [place] [address] * BASIC METABOLIC PANEL (12/31/2017 10:10 AM) [...] Specimen Performing Laboratory Blood [facility]IN [facility] [address] [place] [address] * CBC (12/31/2017 10:10 AM) Component Value [...] FL Specimen Performing Laboratory Blood [facility]IN [facility] [address] [place] [address] 73960 * POC GLUCOSE (12/31/2017 8:49 AM) Component Value Ref Range Glucose, POC 351 (H) 70 - 100 MG/DL Specimen Performing Laboratory [facility]IN [facility] [address] [place] [address] 50115 * POC GLUCOSE (12/31/2017 7:53 AM) Component Value Ref Range Glucose, POC 297 (H) 70 - 100 MG/DL Specimen Performing Laboratory MAIN LAB [address] [place] [address] 06978 * BASIC METABOLIC PANEL (12/31/2017 3:30 AM) [...] for questions. Specimen Performing Laboratory [facility]IN [facility] [address] [place] [address] 02596 * MAGNESIUM (12/31/2017 3:30 AM) Component Value Ref Range Magnesium 2.0 1.6 - 2.6 mg/dL Specimen Performing Laboratory Blood [facility] [address] [place] [address] 60625 * PHOSPHORUS (12/31/2017 3:30 AM) Component Value Ref Range Phosphorus 4.1 (H) 2.0 - 4.0 MG/DL Specimen Performing Laboratory Blood [facility]IN [facility] [address] [place] [address] 29893 * POC GLUCOSE (12/31/2017 3:17 AM) Component Value Ref Range Glucose, POC 253 (H) 70 - 100 MG/DL Specimen Performing Laboratory [facility] [address] [place] [address] * POC GLUCOSE (12/31/2017 1:37 AM) Component Value Ref Range Glucose, POC 249 (H) 70 - 100 MG/DL Specimen Performing Laboratory [facility] [address] [place] [address] * POC GLUCOSE (12/30/2017 9:57 PM) Component Value Ref Range Glucose, POC 211 (H) 70 - 100 MG/DL Specimen Performing Laboratory [facility] [address] [place] [address] * POC GLUCOSE (12/30/2017 5:57 PM) Component Value Ref Range Glucose, POC 207 (H) 70 - 100 MG/DL Specimen Performing Laboratory [facility] [address] [place] [address] * POC GLUCOSE (12/30/2017 12:35 PM) Component Value Ref Range Glucose, POC 173 (H) 70 - 100 MG/DL Specimen Performing Laboratory [facility] [address] [place] [address] * SURGICAL PATHOLOGY (12/30/2017 11:56 AM) Component Value Ref Range PATHOLOGY REPORT [facility] [email or web address] Department of Pathology and Laboratory Medicine [address] [place] [address] Surgical Pathology Office:[phone]:[phone] SURGICAL PATHOLOGY REPORT NAME: BEATA KAISER SURG PATH #: [id number] MR #: [id number] SPECIMEN CLASS: [facility] BILLING #: [id number] ALT ID #:LOCATION: [id number] DATE OF PROCEDURE: [...] the specimen is entirely submitted in cassettes [id number].([facility]) [facility]/12/30/2017 Specimen Performing Laboratory LAB RESULTS * POC GLUCOSE (12/30/2017 9:45 AM) Component Value Ref Range Glucose, POC 184 (H) 70 - 100 MG/DL Specimen Performing Laboratory MAIN LAB [address] [place] [address] * TYPE & CROSSMATCH (12/30/2017 8:50 AM) Component Value Ref Range Units Ordered 4 Crossmatch Expires 01/02/2018 Record Check FOUND ABO/RH(D) A POS Antibody Screen NEG Electronic Crossmatch YES Unit Number [id number] Blood Component Type RBC,ADSOL,LEUKO REDUCED Unit Division 0 Status OF Unit REL FROM ALLOC Transfusion Status OK TO TRANSFUSE Crossmatch Result COMPATIBLE,ELECTRONIC Unit Number [id number] Blood Component Type RBC,ADSOL,LEUKO REDUCED Unit Division 0 Status OF Unit REL FROM ALLOC Transfusion Status OK TO TRANSFUSE Crossmatch Result COMPATIBLE,ELECTRONIC Unit Number [id number] Blood Component Type RBC,ADSOL,LEUKO REDUCED Unit Division 0 Status OF Unit TRANSFUSED Transfusion Status OK TO TRANSFUSE Crossmatch Result COMPATIBLE,ELECTRONIC Unit Number [id number] Blood Component Type RBC,ADSOL,LEUKO REDUCED,2ND CONT. Unit Division 0 Status OF Unit TRANSFUSED Transfusion Status OK TO TRANSFUSE Crossmatch Result COMPATIBLE,ELECTRONIC Specimen Performing Laboratory Blood MAIN [facility] [address] [place] [address] * CBC AND DIFF (12/30/2017 8:35 AM) [...] K/UL Specimen Performing Laboratory Blood [facility]IN [facility] [address] [place] [address] 70224 * TRIGLYCERIDE (12/30/2017 4:58 AM) Component Value Ref Range Triglycerides 198 (H) <150 MG/DL Specimen Performing Laboratory Blood MAIN [facility] [address] [place] [address] * MAGNESIUM (12/30/2017 4:58 AM) Component Value Ref Range Magnesium 2.0 1.6 - 2.6 mg/dL Specimen Performing Laboratory Blood [facility]IN [facility] [address] [place] [address] 56336 * PHOSPHORUS (12/30/2017 4:58 AM) Component Value Ref Range Phosphorus 4.1 (H) 2.0 - 4.0 MG/DL Specimen Performing Laboratory Blood [facility]IN [facility] [address] [place] [address] 34221 * COMPREHENSIVE METABOLIC PANEL (12/30/2017 4:58 AM) [...] Pharmacist for questions. Specimen Performing Laboratory Blood [facility] [address] [place] [address] 92946 * POC GLUCOSE (12/30/2017 3:57 AM) Component Value Ref Range Glucose, POC 160 (H) 70 - 100 MG/DL Specimen Performing Laboratory MAIN LAB [address] [place] [address] 08239 * POC GLUCOSE (12/29/2017 9:08 PM) Component Value Ref Range Glucose, POC 267 (H) 70 - 100 MG/DL Specimen Performing Laboratory MAIN LAB [address] [place] [address] 86917 * POC GLUCOSE (12/29/2017 6:40 PM) Component Value Ref Range Glucose, POC 373 (H) 70 - 100 MG/DL Specimen Performing Laboratory MAIN [facility] [address] [place] [address] 39480 * POC GLUCOSE (12/29/2017 5:41 PM) Component Value Ref Range Glucose, POC 335 (H) 70 - 100 MG/DL Specimen Performing Laboratory MAIN LAB [address] [place], [place] [id number] * POC GLUCOSE (12/29/2017 11:56 AM) Component Value Ref Range Glucose, POC 281 (H) 70 - 100 MG/DL Specimen Performing Laboratory MAIN [facility] [address] [place] [address] 88605 * POC GLUCOSE (12/29/2017 8:18 AM) Component Value Ref Range Glucose, POC 233 (H) 70 - 100 MG/DL Specimen Performing Laboratory MAIN LAB [address] [place] [address] * TYPE & SCREEN (NOT CROSSMATCH ELIGIBLE) (12/29/2017 4:51 AM) Component Value Ref Range ABO/RH(D) A POS Antibody Screen NEG Blood Component Type RED CELL GROUP Specimen Performing Laboratory Blood, venous - Blood [facility] [address] [place] [address] * BASIC METABOLIC PANEL (12/29/2017 4:51 AM) [...] questions. Specimen Performing Laboratory Blood [facility]IN [facility] [address] [place] [address] * CBC AND DIFF (12/29/2017 4:51 AM) [...] 7.0 K/UL Manual Specimen Performing Laboratory Blood [facility] [address] [place], [place] [id number] * POC GLUCOSE (12/29/2017 3:43 AM) Component Value Ref Range Glucose, POC 259 (H) 70 - 100 MG/DL Specimen Performing Laboratory [facility] [address] [place], [place] [id number] * POC GLUCOSE (12/28/2017 8:23 PM) Component Value Ref Range Glucose, POC 280 (H) 70 - 100 MG/DL Specimen Performing Laboratory [facility] [address] [place], [place] [id number] * POC GLUCOSE (12/28/2017 5:44 PM) Component Value Ref Range Glucose, POC 363 (H) 70 - 100 MG/DL Specimen Performing Laboratory [facility] [address] [place] [address] 61862 * OSMOLALITY-URINE RANDOM (12/28/2017 5:18 PM) Component Value Ref Range Osmolality-Urine 366 50 - 1,400 MOS/KG Specimen Performing Laboratory Urine [facility] [address] [place] [address] 09919 * SODIUM-URINE RANDOM (12/28/2017 5:18 PM) Component Value Ref Range Sodium, Random 28 MMOL/L Specimen Performing Laboratory Urine [facility] [address] [place] [address] 02006 * CULTURE-URINE W/SENSITIVITY (12/28/2017 5:18 PM) Component Value Ref Range Battery Name URINE CULTURE Specimen Description URINE,INDWELLING CATH Special Requests NONE Culture NO GROWTH Report Status FINAL 12/29/2017 Specimen Performing Laboratory Urine - Melchor Catheter [facility] [address] [place] [address] 72762 * URINALYSIS, MICROSCOPIC (12/28/2017 5:18 PM) Component Value Ref Range WBCs,UA 10-20 0 - 2 /HPF RBCs,UA 10-20 0 - 3 /HPF MucousUA TRACE Bacteria,UA FEW (A) NEG-NEG Squamous Epithelial Cells 0-2 0 - 5 Budding Yeast FEW Specimen Performing Laboratory Urine [facility] [address] [place] [address] 50558 * URINALYSIS DIPSTICK (12/28/2017 5:18 PM) Component Value Ref Range Color,UA YELLOW Turbidity,UA CLEAR CLEAR-CLEAR Specific [place]-Urine 1.015 1.003 - 1.035 pH,UA 5.0 5.0 - 8.0 Protein,UA NEG NEG-NEG Glucose,UA 3+ (A) NEG-NEG Ketones,UA NEG NEG-NEG Bilirubin,UA NEG NEG-NEG Blood,UA 1+ (A) NEG-NEG Urobilinogen,UA NORMAL NORM-NORMAL Nitrite,UA NEG NEG-NEG Leukocytes,UA 2+ (A) NEG-NEG Urine Ascorbic Acid, UA NEG NEG-NEG Specimen Performing Laboratory Urine [facility] [address] [place] [address] 00501 * POC GLUCOSE (12/28/2017 1:50 PM) Component Value Ref Range Glucose, POC 281 (H) 70 - 100 MG/DL Specimen Performing Laboratory [facility] [address] [place] [address] 46119 * POC GLUCOSE (12/28/2017 12:01 PM) Component Value Ref Range Glucose, POC 343 (H) 70 - 100 MG/DL Specimen Performing Laboratory [facility] [address] [place] [address] 08438 * PATHOLOGY INTEROPERATIVE REPORT SCAN (12/28/2017 9:36 AM) Narrative Ordered by an unspecified provider. * PATHOLOGY INTEROPERATIVE REPORT SCAN (12/28/2017 9:36 AM) Narrative Ordered by an unspecified provider. * POC GLUCOSE (12/28/2017 7:54 AM) Component Value Ref Range Glucose, POC 187 (H) 70 - 100 MG/DL Specimen Performing Laboratory [facility] [address] [place] [address] 00273 * ABDOMEN AP ONLY (12/28/2017 5:27 AM) [...] Specimen Performing Laboratory [facility] [address] [place] [address] * OSMOLALITY (12/28/2017 4:00 AM) Component Value Ref Range Osmolality 283 280 - 307 MOSMOL/KG Specimen Performing Laboratory MAIN LAB [address] [place] [address] * BASIC METABOLIC PANEL (12/28/2017 4:00 AM) [...] Specimen Performing Laboratory Blood [facility] [address] [place] [address] * CBC AND DIFF (12/28/2017 4:00 AM) [...] Performing Laboratory Blood [facility] [address] [place] [address] * POC GLUCOSE (12/28/2017 3:27 AM) Component Value Ref Range Glucose, POC 168 (H) 70 - 100 MG/DL Specimen Performing Laboratory [facility] [address] [place] [address] * POC GLUCOSE (12/28/2017 3:14 AM) Component Value Ref Range Glucose, POC 167 (H) 70 - 100 MG/DL Specimen Performing Laboratory [facility] [address] [place] [address] 48194 * POC GLUCOSE (12/27/2017 9:28 PM) Component Value Ref Range Glucose, POC 234 (H) 70 - 100 MG/DL Specimen Performing Laboratory [facility] [address] [place] [address] 23672 * ABDOMEN AP ONLY (12/27/2017 7:52 PM) [...] the mid abdomen is included in the [id number]. Surgical defect in the left abdominal wall [...] the mid abdomen is included in the [id number]. Surgical defect in the left abdominal wall [...] 100 MG/DL Specimen Performing Laboratory [facility] [address] [place] [address] 28013 * POC GLUCOSE (12/27/2017 11:52 AM) Component Value Ref Range Glucose, POC 143 (H) 70 - 100 MG/DL Specimen Performing Laboratory [facility] [address] [place] [address] 76520 * POC GLUCOSE (12/27/2017 7:39 AM) Component Value Ref Range Glucose, POC 193 (H) 70 - 100 MG/DL Specimen Performing Laboratory [facility] [address] [place] [address] 74803 * VANCOMYCIN TROUGH (12/27/2017 5:33 AM) Component Value Ref Range Vancomycin Trough 23.2 (H) 10.0 - 20.0 MCG/ML Specimen Performing Laboratory Blood, venous - Blood [facility] [address] [place] [address] 61021 * BASIC METABOLIC PANEL (12/27/2017 4:31 AM) [...] questions. Specimen Performing Laboratory Blood [facility] [address] [place] [address] * CBC AND DIFF (12/27/2017 4:31 AM) [...] - 0.20 K/UL Specimen Performing Laboratory Blood [facility] [address] [place], [place] [id number] * POC GLUCOSE (12/27/2017 2:35 AM) Component Value Ref Range Glucose, POC 176 (H) 70 - 100 MG/DL Specimen Performing Laboratory [facility] [address] [place] [address] 59646 * POC GLUCOSE (12/26/2017 9:25 PM) Component Value Ref Range Glucose, POC 304 (H) 70 - 100 MG/DL Specimen Performing Laboratory [facility] [address] [place], [place] [id number] * POC GLUCOSE (12/26/2017 5:42 PM) Component Value Ref Range Glucose, POC 215 (H) 70 - 100 MG/DL Specimen Performing Laboratory [facility] [address] [place], [place] [id number] * POC GLUCOSE (12/26/2017 1:20 PM) Component Value Ref Range Glucose, POC 312 (H) 70 - 100 MG/DL Specimen Performing Laboratory [facility] [address] [place] [address] 15555 * POC GLUCOSE (12/26/2017 8:31 AM) Component Value Ref Range Glucose, POC 219 (H) 70 - 100 MG/DL Specimen Performing Laboratory [facility] [address] [place] [address] 67488 * PHOSPHORUS (12/26/2017 4:01 AM) Component Value Ref Range Phosphorus 2.1 2.0 - 4.0 MG/DL Specimen Performing Laboratory [facility] [address] [place] [address] 77070 * MAGNESIUM (12/26/2017 4:01 AM) Component Value Ref Range Magnesium 2.0 1.6 - 2.6 mg/dL Specimen Performing Laboratory [facility] [address] [place] [address] 95030 * BASIC METABOLIC PANEL (12/26/2017 4:01 AM) [...] questions. Specimen Performing Laboratory Blood [facility] 01 [address] [place], [place] [id number] * CBC AND DIFF (12/26/2017 4:01 AM) [...] - 0.20 K/UL Specimen Performing Laboratory Blood [facility] [address] [place] [address] 85349 * POC GLUCOSE (12/26/2017 1:28 AM) Component Value Ref Range Glucose, POC 217 (H) 70 - 100 MG/DL Specimen Performing Laboratory [facility] [address] [place] [address] 31125 * POC GLUCOSE (12/25/2017 8:35 PM) Component Value Ref Range Glucose, POC 367 (H) 70 - 100 MG/DL Specimen Performing Laboratory [facility] [address] [place] [address] 26580 * POC GLUCOSE (12/25/2017 5:19 PM) Component Value Ref Range Glucose, POC 292 (H) 70 - 100 MG/DL Specimen Performing Laboratory [facility] [address] [place] [address] 89422 * POC GLUCOSE (12/25/2017 12:02 PM) Component Value Ref Range Glucose, POC 306 (H) 70 - 100 MG/DL Specimen Performing Laboratory [facility] [address] [place] [address] 17383 * POC GLUCOSE (12/25/2017 9:01 AM) Component Value Ref Range Glucose, POC 261 (H) 70 - 100 MG/DL Specimen Performing Laboratory [facility] [address] [place] [address] 34412 * CT PELVIS WO CONTRAST (12/25/2017 8:47 [...] 10.0 - 20.0 MCG/ML Specimen Performing Laboratory [facility] [address] [place] [address] * BASIC METABOLIC PANEL (12/25/2017 4:42 AM) [...] questions. Specimen Performing Laboratory Blood [facility] [address] [place] [address] * CBC AND DIFF (12/25/2017 4:42 AM) [...] K/UL Specimen Performing Laboratory Blood [facility] [address] [place] [address] 62218 * POC GLUCOSE (12/25/2017 3:24 AM) Component Value Ref Range Glucose, POC 200 (H) 70 - 100 MG/DL Specimen Performing Laboratory MAIN [facility] [address] [place] [address] 03191 * POC GLUCOSE (12/24/2017 8:18 PM) Component Value Ref Range Glucose, POC 263 (H) 70 - 100 MG/DL Specimen Performing Laboratory MAIN [facility] [address] [place], [place] [id number] * DELIVER & TRANSFUSE RED BLOOD CELLS (INTRAOP ONLY) (12/24/2017 6:16 PM) Specimen Performing Laboratory Blood * POC GLUCOSE (12/24/2017 5:47 PM) Component Value Ref Range Glucose, POC 323 (H) 70 - 100 MG/DL Specimen Performing Laboratory [facility] [address] [place] [address] * POC GLUCOSE (12/24/2017 2:02 PM) Component Value Ref Range Glucose, POC 235 (H) 70 - 100 MG/DL Specimen Performing Laboratory [facility] [address] [place] [address] * CULTURE-BLOOD W/SENSITIVITY (12/24/2017 1:12 PM) Component Value Ref Range Battery Name BLOOD CULTURE Specimen Description BLOOD RIGHT ANTECUBITAL Special Requests NONE Culture NO GROWTH 5 DAYS Report Status FINAL 12/30/2017 Specimen Performing Laboratory [facility] [address] [place] [address] * CHEST SINGLE VIEW (12/24/2017 10:34 AM) [...] Screen NEG Electronic Crossmatch YES Unit Number [id number] Blood Component Type RBC,ADSOL,LEUKO REDUCED Unit Division 0 Status OF Unit TRANSFUSED Transfusion Status OK TO TRANSFUSE Crossmatch Result COMPATIBLE,ELECTRONIC Specimen Performing Laboratory Blood [facility] [address] [place] [address] * POC GLUCOSE (12/24/2017 9:15 AM) Component Value Ref Range Glucose, POC 182 (H) 70 - 100 MG/DL Specimen Performing Laboratory [facility] [address] [place] [address] * CBC (12/24/2017 7:16 AM) Component Value [...] 7 - 11 FL Specimen Performing Laboratory [facility] [address] [place] [address] 18273 * CBC (12/24/2017 4:34 AM) Component Value [...] 7 - 11 FL Specimen Performing Laboratory [facility] [address] [place] [address] 77480 * BASIC METABOLIC PANEL (12/24/2017 4:34 AM) [...] questions. Specimen Performing Laboratory Blood [facility]IN [facility] [address] [place], [place] [id number] * POC GLUCOSE (12/23/2017 9:18 PM) Component Value Ref Range Glucose, POC 133 (H) 70 - 100 MG/DL Specimen Performing Laboratory MAIN [facility] [address] [place] [address] 55766 * POC GLUCOSE (12/23/2017 6:56 PM) Component Value Ref Range Glucose, POC 169 (H) 70 - 100 MG/DL Specimen Performing Laboratory MAIN LAB [address] [place] [address] 06505 * OSMOLALITY-URINE RANDOM (12/23/2017 6:14 PM) Component Value Ref Range Osmolality-Urine 298 50 - 1,400 MOS/KG Specimen Performing Laboratory Urine MAIN [facility] [address] [place] [address] 25900 * SODIUM-URINE RANDOM (12/23/2017 6:14 PM) Component Value Ref Range Sodium, Random <10 MMOL/L Specimen Performing Laboratory Urine [facility]IN [facility] [address] [place] [address] 91177 * LACTIC ACID (BG - RAPID LACTATE) (12/23/2017 1:42 PM) Component Value Ref Range Lactic Acid,BG 1.9 0.5 - 2.0 MMOL/L Specimen Performing Laboratory Blood [facility] [address] [place] [address] 98708 * CULTURE-BLOOD W/SENSITIVITY (12/23/2017 1:42 PM) Component Value Ref Range Battery Name BLOOD CULTURE Specimen Description BLOOD LEFT ANTECUBITAL Special Requests NONE Culture NO GROWTH 5 DAYS Report Status FINAL 12/29/2017 Specimen Performing Laboratory Blood [facility] [address] [place] [address] 09982 * CULTURE-BLOOD W/SENSITIVITY (12/23/2017 1:05 PM) Component Value Ref Range Battery Name BLOOD CULTURE Specimen Description BLOOD RIGHT ARM Special Requests NONE Culture POSITIVE SMEAR: GRAM POSITIVE COCCI RESEMBLING STREPTOCOCCI one bottle only CRITICAL VALUE CALLED TO AND READ BACK BY/TIME/TECH Amanda Palafox/[id number]/ STREPTOCOCCUS AGALACTIAE(GROUP B) Susceptibility testing of beta lactams is not necessary for clinical purposes since resistant strains have not been recognized (A) Report Status FINAL 12/29/2017 Organism ID STREPTOCOCCUS AGALACTIAE(GROUP B) Susceptibility testing of beta lactams is not necessary for clinical purposes since resistant strains have not been recognized Specimen Performing Laboratory Blood [facility] [address] [place] [address] Organism Antibiotic Method Susceptibility Streptococcus Levofloxacin GRAF [...] 70 - 100 MG/DL Specimen Performing Laboratory [facility] [address] [place] [address] 09030 * C DIFFICILE BY PCR (12/23/2017 10:14 AM) Component Value Ref Range Battery Name C DIFFICILE PCR Specimen Description FECES Special Requests NONE C. Difficile Toxin B PCR Repeat testing not indicated on specimen negative by PCR within 7 days notified MAURO/Gaye 12.23.17/ Report Status FINAL 12/23/2017 Specimen Performing Laboratory Feces [facility] [address] [place] [address] 21268 * POC GLUCOSE (12/23/2017 9:35 AM) Component Value Ref Range Glucose, POC 165 (H) 70 - 100 MG/DL Specimen Performing Laboratory [facility] [address] [place] [address] 63903 * CBC (12/23/2017 7:29 AM) Component Value [...] FL Specimen Performing Laboratory Blood [facility] [address] [place] [address] 14197 * BASIC METABOLIC PANEL (12/23/2017 7:29 AM) [...] questions. Specimen Performing Laboratory Blood [facility] [address] [place] [address] 81738 * POC GLUCOSE (12/22/2017 9:17 PM) Component Value Ref Range Glucose, POC 303 (H) 70 - 100 MG/DL Specimen Performing Laboratory [facility]IN [facility] [address] [place] [address] 89002 * POC GLUCOSE (12/22/2017 5:50 PM) Component Value Ref Range Glucose, POC 376 (H) 70 - 100 MG/DL Specimen Performing Laboratory [facility] [address] [place] [address] 23451 * POC GLUCOSE (12/22/2017 12:39 PM) Component Value Ref Range Glucose, POC 227 (H) 70 - 100 MG/DL Specimen Performing Laboratory [facility] [address] [place] [address] 53071 * PREALBUMIN (12/22/2017 11:22 AM) Component Value Ref Range Prealbumin 4.0 (L) 17 - 34 MG/DL Specimen Performing Laboratory Blood [facility] [address] [place] [address] 52355 * POC GLUCOSE (12/22/2017 9:41 AM) Component Value Ref Range Glucose, POC 113 (H) 70 - 100 MG/DL Specimen Performing Laboratory [facility] [address] [place] [address] 70426 * ECG-SCAN (12/22/2017 8:10 AM) Narrative Ordered [...] - 8.0 G/DL Specimen Performing Laboratory Blood [facility] [address] [place] [address] 05232 * ALBUMIN (12/22/2017 4:13 AM) Component Value Ref Range Albumin 2.0 (L) 3.5 - 5.0 G/DL Specimen Performing Laboratory [facility] [address] [place] [address] 90420 * CBC (12/22/2017 4:13 AM) Component Value [...] FL Specimen Performing Laboratory Blood [facility] [address] [place] [address] 41974 * BASIC METABOLIC PANEL (12/22/2017 4:13 AM) [...] questions. Specimen Performing Laboratory Blood [facility] [address] [place] [address] 26840 * POC GLUCOSE (12/21/2017 8:38 PM) Component Value Ref Range Glucose, POC 208 (H) 70 - 100 MG/DL Specimen Performing Laboratory [facility] [address] [place] [address] 55431 * POC GLUCOSE (12/21/2017 5:10 PM) Component Value Ref Range Glucose, POC 219 (H) 70 - 100 MG/DL Specimen Performing Laboratory [facility] [address] [place] [address] 07212 * POC GLUCOSE (12/21/2017 2:59 PM) Component Value Ref Range Glucose, POC 213 (H) 70 - 100 MG/DL Specimen Performing Laboratory [facility] [address] [place] [address] 21634 * CHEST SINGLE VIEW (12/21/2017 12:34 PM) [...] Performing Laboratory Blood [facility] [address] [place] [address] * BASIC METABOLIC PANEL (12/21/2017 11:33 AM) [...] Pharmacist for questions. Specimen Performing Laboratory Blood [facility] [address] [place] [address] 93142 * CULTURE-URINE W/SENSITIVITY (12/21/2017 9:00 AM) Component Value Ref Range Battery Name URINE CULTURE Specimen Description URINE Special Requests NONE Culture >100,000 organisms/ml ARACELY SPECIES, NOT ALBICANS Report Status FINAL 12/22/2017 Specimen Performing Laboratory Urine [facility] [address] [place] [address] 16659 * URINALYSIS MICROSCOPIC REFLEX TO CULTURE (12/21/2017 [...] Budding Yeast PACKED Specimen Performing Laboratory Urine [facility] [address] [place] [address] 80365 * URINALYSIS DIPSTICK REFLEX TO CULTURE (12/21/2017 9:00 AM) Component Value Ref Range Color,UA YELLOW Turbidity,UA CLEAR CLEAR-CLEAR Specific [place]-Urine 1.003 1.003 - 1.035 pH,UA 7.0 5.0 - 8.0 Protein,UA NEG NEG-NEG Glucose,UA NEG NEG-NEG Ketones,UA NEG NEG-NEG Bilirubin,UA NEG NEG-NEG Blood,UA 1+ (A) NEG-NEG Urobilinogen,UA NORMAL NORM-NORMAL Nitrite,UA NEG NEG-NEG Leukocytes,UA 1+ (A) NEG-NEG Urine Ascorbic Acid, UA NEG NEG-NEG Specimen Performing Laboratory Urine [facility]IN [facility] [address] [place] [address] 53461 * UA REFLEX CULTURE LABEL (12/21/2017 9:00 AM) Component Value Ref Range UA Reflex Culture LAB LABEL Specimen Performing Laboratory Urine [facility] [address] [place] [address] 19782 * OSMOLALITY-URINE RANDOM (12/21/2017 9:00 AM) Component Value Ref Range Osmolality-Urine 94 50 - 1,400 MOS/KG Specimen Performing Laboratory Urine [facility] [address] [place] [address] 42055 * SODIUM-URINE RANDOM (12/21/2017 9:00 AM) Component Value Ref Range Sodium, Random <10 MMOL/L Specimen Performing Laboratory Urine [facility] [address] [place] [address] 07418 * POC GLUCOSE (12/21/2017 8:50 AM) Component Value Ref Range Glucose, POC 136 (H) 70 - 100 MG/DL Specimen Performing Laboratory [facility] [address] [place] [address] 29997 * URIC ACID (12/21/2017 4:38 AM) Component Value Ref Range Uric Acid 3.3 2.0 - 7.0 MG/DL Specimen Performing Laboratory [facility] [address] [place] [address] 57192 * THYROID STIMULATING HORMONE-TSH (12/21/2017 4:38 AM) Component Value Ref Range TSH 2.150 0.35 - 5.00 MCU/ML Specimen Performing Laboratory [facility] [address] [place] [address] 64597 * OSMOLALITY (12/21/2017 4:38 AM) Component Value Ref Range Osmolality 258 (L) 280 - 307 MOSMOL/KG Specimen Performing Laboratory [facility] [address] [place] [address] 00540 * CORTISOL,RANDOM (12/21/2017 4:38 AM) Component Value Ref Range Cortisol, Random 15.5 5.0 - 20.0 MCG/DL Specimen Performing Laboratory [facility] [address] [place], [place] [id number] * CBC (12/21/2017 4:38 AM) Component Value [...] - 11 FL Specimen Performing Laboratory Blood [facility] [address] [place] [address] 33809 * BASIC METABOLIC PANEL (12/21/2017 4:38 AM) [...] Pharmacist for questions. Specimen Performing Laboratory Blood [facility] [address] [place] [address] * POC GLUCOSE (12/21/2017 2:54 AM) Component Value Ref Range Glucose, POC 157 (H) 70 - 100 MG/DL Specimen Performing Laboratory [facility] [address] [place] [address] 96409 * POC GLUCOSE (12/20/2017 9:27 PM) Component Value Ref Range Glucose, POC 263 (H) 70 - 100 MG/DL Specimen Performing Laboratory [facility] [address] [place], [place] [id number] * POC GLUCOSE (12/20/2017 6:47 PM) Component Value Ref Range Glucose, POC 245 (H) 70 - 100 MG/DL Specimen Performing Laboratory [facility] [address] [place] [address] 21495 * C DIFFICILE BY PCR (12/20/2017 1:40 PM) Component Value Ref Range Battery Name C DIFFICILE PCR Specimen Description FECES Special Requests NONE C. Difficile Toxin B PCR NEGATIVE-wait 7 days to repeat test Report Status FINAL 12/20/2017 Specimen Performing Laboratory Feces [facility] [address] [place] [address] 51134 * POC GLUCOSE (12/20/2017 11:30 AM) Component Value Ref Range Glucose, POC 208 (H) 70 - 100 MG/DL Specimen Performing Laboratory [facility] [address] [place] [address] 14714 * POC GLUCOSE (12/20/2017 8:42 AM) Component Value Ref Range Glucose, POC 133 (H) 70 - 100 MG/DL Specimen Performing Laboratory [facility] [address] [place] [address] * POC GLUCOSE (12/20/2017 3:21 AM) Component Value Ref Range Glucose, POC 151 (H) 70 - 100 MG/DL Specimen Performing Laboratory [facility] [address] [place] [address] 25401 * BASIC METABOLIC PANEL (12/20/2017 3:10 AM) [...] questions. Specimen Performing Laboratory Blood [facility] [address] [place] [address] 05040 * CBC (12/20/2017 3:10 AM) Component Value [...] FL Specimen Performing Laboratory [facility] [address] [place] [address] 14181 * POC GLUCOSE (12/19/2017 9:46 PM) Component Value Ref Range Glucose, POC 151 (H) 70 - 100 MG/DL Specimen Performing Laboratory [facility] [address] [place] [address] 77489 * POC GLUCOSE (12/19/2017 5:06 PM) Component Value Ref Range Glucose, POC 207 (H) 70 - 100 MG/DL Specimen Performing Laboratory [facility] [address] [place] [address] 19743 * POC GLUCOSE (12/19/2017 11:56 AM) Component Value Ref Range Glucose, POC 153 (H) 70 - 100 MG/DL Specimen Performing Laboratory [facility] [address] [place] [address] 43423 * POC GLUCOSE (12/19/2017 9:07 AM) Component Value Ref Range Glucose, POC 127 (H) 70 - 100 MG/DL Specimen Performing Laboratory [facility]IN [facility] [address] [place] [address] 65752 * CBC (12/19/2017 3:05 AM) Component Value [...] - 11 FL Specimen Performing Laboratory Blood [facility] [address] [place] [address] 81544 * BASIC METABOLIC PANEL (12/19/2017 3:05 AM) [...] Pharmacist for questions. Specimen Performing Laboratory Blood [facility] [address] [place] [address] 39075 * IONIZED CALCIUM (12/19/2017 3:05 AM) Component Value Ref Range Ionized Calcium 1.07 1.0 - 1.3 MMOL/L Specimen Performing Laboratory Blood [facility] [address] [place] [address] 50353 * PHOSPHORUS (12/19/2017 3:05 AM) Component Value Ref Range Phosphorus 3.0 2.0 - 4.0 MG/DL Specimen Performing Laboratory Blood [facility] [address] [place], [place] [id number] * MAGNESIUM (12/19/2017 3:05 AM) Component Value Ref Range Magnesium 1.9 1.6 - 2.6 mg/dL Specimen Performing Laboratory Blood [facility] [address] [place], [place] [id number] * POC GLUCOSE (12/18/2017 9:00 PM) Component Value Ref Range Glucose, POC 97 70 - 100 MG/DL Specimen Performing Laboratory [facility] [address] [place] [address] 73483 * POC GLUCOSE (12/18/2017 4:38 PM) Component Value Ref Range Glucose, POC 173 (H) 70 - 100 MG/DL Specimen Performing Laboratory [facility] [address] [place] [address] 57802 * POC GLUCOSE (12/18/2017 12:00 PM) Component Value Ref Range Glucose, POC 129 (H) 70 - 100 MG/DL Specimen Performing Laboratory [facility] [address] [place] [address] 96989 * POC GLUCOSE (12/18/2017 8:45 AM) Component Value Ref Range Glucose, POC 107 (H) 70 - 100 MG/DL Specimen Performing Laboratory [facility] [address] [place] [address] 60787 * POC GLUCOSE (12/18/2017 3:08 AM) Component Value Ref Range Glucose, POC 132 (H) 70 - 100 MG/DL Specimen Performing Laboratory [facility] [address] [place] [address] * CBC (12/18/2017 3:07 AM) Component Value [...] Specimen Performing Laboratory Blood [facility] [address] [place] [address] 29279 * BASIC METABOLIC PANEL (12/18/2017 3:07 AM) [...] Performing Laboratory Blood [facility] [address] [place] [address] * IONIZED CALCIUM (12/18/2017 3:07 AM) Component Value Ref Range Ionized Calcium 1.12 1.0 - 1.3 MMOL/L Specimen Performing Laboratory Blood [facility] [address] [place] [address] * PHOSPHORUS (12/18/2017 3:07 AM) Component Value Ref Range Phosphorus 2.5 2.0 - 4.0 MG/DL Specimen Performing Laboratory Blood [facility] [address] [place] [address] 29753 * MAGNESIUM (12/18/2017 3:07 AM) Component Value Ref Range Magnesium 2.2 1.6 - 2.6 mg/dL Specimen Performing Laboratory Blood [facility] [address] [place] [address] 27896 * POC GLUCOSE (12/17/2017 8:27 PM) Component Value Ref Range Glucose, POC 154 (H) 70 - 100 MG/DL Specimen Performing Laboratory [facility] [address] [place] [address] 23851 * POC GLUCOSE (12/17/2017 5:31 PM) Component Value Ref Range Glucose, POC 197 (H) 70 - 100 MG/DL Specimen Performing Laboratory [facility] [address] [place] [address] 89984 * CBC (12/17/2017 5:31 PM) Component Value [...] - 11 FL Specimen Performing Laboratory Blood [facility] [address] [place], [place] [id number] * POC GLUCOSE (12/17/2017 12:05 PM) Component Value Ref Range Glucose, POC 136 (H) 70 - 100 MG/DL Specimen Performing Laboratory [facility] [address] [place] [address] 54648 * POC GLUCOSE (12/17/2017 8:17 AM) Component Value Ref Range Glucose, POC 123 (H) 70 - 100 MG/DL Specimen Performing Laboratory [facility] [address] [place], [place] [id number] * ABDOMEN AP ONLY (12/17/2017 7:10 AM) [...] 70 - 100 MG/DL Specimen Performing Laboratory [facility] [address] [place] [address] * CBC (12/17/2017 3:04 AM) Component Value [...] FL Specimen Performing Laboratory Blood [facility] [address] [place] [address] 84279 * BASIC METABOLIC PANEL (12/17/2017 3:04 AM) [...] questions. Specimen Performing Laboratory Blood [facility] [address] [place] [address] 20758 * IONIZED CALCIUM (12/17/2017 3:04 AM) Component Value Ref Range Ionized Calcium 1.13 1.0 - 1.3 MMOL/L Specimen Performing Laboratory Blood [facility] [address] [place] [address] 31207 * PHOSPHORUS (12/17/2017 3:04 AM) Component Value Ref Range Phosphorus 2.0 2.0 - 4.0 MG/DL Specimen Performing Laboratory Blood [facility] [address] [place] [address] 68394 * MAGNESIUM (12/17/2017 3:04 AM) Component Value Ref Range Magnesium 2.1 1.6 - 2.6 mg/dL Specimen Performing Laboratory [facility] [address] [place] [address] 08166 * CBC (12/16/2017 10:00 PM) Component Value [...] FL Specimen Performing Laboratory [facility] [address] [place] [address] 90924 * POC GLUCOSE (12/16/2017 8:26 PM) Component Value Ref Range Glucose, POC 131 (H) 70 - 100 MG/DL Specimen Performing Laboratory [facility] [address] [place] [address] 14678 * POC GLUCOSE (12/16/2017 5:01 PM) Component Value Ref Range Glucose, POC 165 (H) 70 - 100 MG/DL Specimen Performing Laboratory [facility] [address] [place], [place] [id number] * BASIC METABOLIC PANEL (12/16/2017 2:20 PM) [...] Pharmacist for questions. Specimen Performing Laboratory Blood [facility] [address] [place] [address] 37444 * CBC (12/16/2017 2:20 PM) Component Value [...] FL Specimen Performing Laboratory Blood [facility] [address] [place] [address] * POC GLUCOSE (12/16/2017 12:09 PM) Component Value Ref Range Glucose, POC 181 (H) 70 - 100 MG/DL Specimen Performing Laboratory [facility] [address] [place], [place] [id number] * POC GLUCOSE (12/16/2017 9:39 AM) Component Value Ref Range Glucose, POC 171 (H) 70 - 100 MG/DL Specimen Performing Laboratory [facility] [address] [place] [address] * BLOOD GASES, ARTERIAL (12/16/2017 3:27 AM) Component Value Ref Range pH-Arterial 7.33 (L) 7.35 - 7.45 pCO2-Arterial 41 35 - 45 MMHG pO2-Arterial 84 80 - 100 MMHG Base Deficit-Arterial 4.2 MMOL/L O2 Sat-Arterial 97.0 95 - 99 % Oygjzrojtbs-SFI-Hhf 20.9 (L) 21 - 28 MMOL/L Specimen Performing Laboratory Blood, arterial - Blood [facility] [address] [place] [address] * POC GLUCOSE (12/16/2017 3:06 AM) Component Value Ref Range Glucose, POC 136 (H) 70 - 100 MG/DL Specimen Performing Laboratory [facility] [address] [place] [address] * CBC (12/16/2017 3:05 AM) Component Value [...] Specimen Performing Laboratory Blood [facility] [address] [place] [address] 14138 * BASIC METABOLIC PANEL (12/16/2017 3:05 AM) [...] questions. Specimen Performing Laboratory Blood [facility] [address] [place] [address] 04982 * IONIZED CALCIUM (12/16/2017 3:05 AM) Component Value Ref Range Ionized Calcium 1.16 1.0 - 1.3 MMOL/L Specimen Performing Laboratory Blood [facility] [address] [place] [address] 53582 * PHOSPHORUS (12/16/2017 3:05 AM) Component Value Ref Range Phosphorus 3.6 2.0 - 4.0 MG/DL Specimen Performing Laboratory Blood [facility] [address] [place] [address] 29534 * MAGNESIUM (12/16/2017 3:05 AM) Component Value Ref Range Magnesium 1.8 1.6 - 2.6 mg/dL Specimen Performing Laboratory Blood [facility] [address] [place] [address] 38972 * PHOSPHORUS (12/15/2017 10:00 PM) Component Value Ref Range Phosphorus 4.1 (H) 2.0 - 4.0 MG/DL Specimen Performing Laboratory Blood [facility] [address] [place] [address] 51434 * MAGNESIUM (12/15/2017 10:00 PM) Component Value Ref Range Magnesium 2.0 1.6 - 2.6 mg/dL Specimen Performing Laboratory Blood [facility] [address] [place] [address] * TEG WITH KAOLIN (12/15/2017 10:00 PM) [...] Specimen Performing Laboratory Blood [facility] [address] [place] [address] * CBC (12/15/2017 10:00 PM) Component Value [...] FL Specimen Performing Laboratory Blood [facility] [address] [place], [place] [id number] * IONIZED CALCIUM (12/15/2017 10:00 PM) Component Value Ref Range Ionized Calcium 1.23 1.0 - 1.3 MMOL/L Specimen Performing Laboratory Blood [facility] [address] [place], [place] [id number] * BLOOD GASES, ARTERIAL (12/15/2017 10:00 PM) Component Value Ref Range pH-Arterial 7.31 (L) 7.35 - 7.45 pCO2-Arterial 38 35 - 45 MMHG pO2-Arterial 95 80 - 100 MMHG Base Deficit-Arterial 6.4 MMOL/L O2 Sat-Arterial 97.6 95 - 99 % Alnbttdttsr-XIX-Agd 19.2 (L) 21 - 28 MMOL/L Specimen Performing Laboratory Blood, arterial - Blood [facility] [address] [place], [place] [id number] * POC GLUCOSE (12/15/2017 8:35 PM) Component Value Ref Range Glucose, POC 272 (H) 70 - 100 MG/DL Specimen Performing Laboratory [facility] [address] [place], [place] [id number] * CBC (12/15/2017 7:26 PM) Component Value [...] FL Specimen Performing Laboratory Blood [facility] [address] [place] [address] * TRANSFUSE RBC'S BLEEDING PT OR EXCHANGE TRANSFUSION (12/15/2017 6:54 PM) Specimen Performing Laboratory Blood * POC GLUCOSE (12/15/2017 5:32 PM) Component Value Ref Range Glucose, POC 255 (H) 70 - 100 MG/DL Specimen Performing [facility] [address] [place] [address] * TEG WITH KAOLIN (12/15/2017 3:25 PM) [...] Specimen Performing Laboratory [facility] [address] [place] [address] * CBC (12/15/2017 1:45 PM) Component Value [...] [place] Specimen Performing Laboratory [facility] [address] [place] [address] * POC GLUCOSE (12/15/2017 8:54 AM) Component Value Ref Range Glucose, POC 177 (H) 70 - 100 MG/DL Specimen Performing Laboratory [facility] [address] [place] [address] * BLOOD GASES, ARTERIAL (12/15/2017 8:45 AM) Component Value Ref Range pH-Arterial 7.36 7.35 - 7.45 pCO2-Arterial 22 (L) 35 - 45 MMHG pO2-Arterial 136 (H) 80 - 100 MMHG Base Deficit-Arterial 12.5 MMOL/L O2 Sat-Arterial 99.4 (H) 95 - 99 % Omncyvaotee-XFJ-Xvy 14.5 (L) 21 - 28 MMOL/L Specimen Performing Laboratory Blood, arterial - Blood [facility] [address] [place] [address] * POC GLUCOSE (12/15/2017 6:45 AM) Component Value Ref Range Glucose, POC 206 (H) 70 - 100 MG/DL Specimen Performing Laboratory [facility] [address] [place], [place] [id number] * CBC (12/15/2017 5:40 AM) Component Value [...] Specimen Performing Laboratory [facility] [address] [place] [address] * BASIC METABOLIC PANEL (12/15/2017 4:40 AM) [...] questions. Specimen Performing Laboratory [facility] [address] [place] [phone] * IONIZED CALCIUM (12/15/2017 4:40 AM) Component Value Ref Range Ionized Calcium 1.11 1.0 - 1.3 MMOL/L Specimen Performing Laboratory [facility] [address] [place] [address] * PHOSPHORUS (12/15/2017 4:40 AM) Component Value Ref Range Phosphorus 3.2 2.0 - 4.0 MG/DL Specimen Performing Laboratory [facility] [address] [place] [address] * MAGNESIUM (12/15/2017 4:40 AM) Component Value Ref Range Magnesium 2.0 1.6 - 2.6 mg/dL Specimen Performing Laboratory [facility] [address] [place] [address] * LACTIC ACID(LACTATE) (12/14/2017 11:20 PM) Component Value Ref Range Lactic Acid 0.8 0.5 - 2.0 MMOL/L Specimen Performing Laboratory [facility] [address] [place] [address] * BLOOD GASES, ARTERIAL (12/14/2017 11:20 PM) Component Value Ref Range pH-Arterial 7.34 (L) 7.35 - 7.45 pCO2-Arterial 34 (L) 35 - 45 MMHG pO2-Arterial 77 (L) 80 - 100 MMHG Base Deficit-Arterial 7.1 MMOL/L O2 Sat-Arterial 95.3 95 - 99 % Rhgvamowdvh-MGB-Tif 18.6 (L) 21 - 28 MMOL/L Specimen Performing Laboratory Blood, arterial - Blood [facility] [address] [place], [place] [id number] * PHOSPHORUS (12/14/2017 11:20 PM) Component Value Ref Range Phosphorus 3.5 2.0 - 4.0 MG/DL Specimen Performing Laboratory [facility] [address] [place], [place] [id number] * MAGNESIUM (12/14/2017 11:20 PM) Component Value Ref Range Magnesium 2.1 1.6 - 2.6 mg/dL Specimen Performing Laboratory [facility] [address] [place], [place] [id number] * BASIC METABOLIC PANEL (12/14/2017 11:20 PM) [...] questions. Specimen Performing Laboratory [facility] [address] [place], [place] [id number] * CBC (12/14/2017 11:20 PM) Component Value [...] [place] Specimen Performing Laboratory [facility] [address] [place] [address] * POC GLUCOSE (12/14/2017 9:22 PM) Component Value Ref Range Glucose, POC 199 (H) 70 - 100 MG/DL Specimen Performing [facility] [address] [place] [address] * CBC AND DIFF (12/14/2017 6:42 PM) [...] K/UL Specimen Performing Laboratory [facility] [address] [place] [address] * PHOSPHORUS (12/14/2017 6:42 PM) Component Value Ref Range Phosphorus 4.0 2.0 - 4.0 MG/DL Specimen Performing Laboratory [facility] [address] [place] [address] * MAGNESIUM (12/14/2017 6:42 PM) Component Value Ref Range Magnesium 2.0 1.6 - 2.6 mg/dL Specimen Performing Laboratory [facility] [address] [place] [address] * BASIC METABOLIC PANEL (12/14/2017 6:42 PM) [...] questions. Specimen Performing Laboratory [facility] [address] [place] [address] * LACTIC ACID(LACTATE) (12/14/2017 6:42 PM) Component Value Ref Range Lactic Acid 1.5 0.5 - 2.0 MMOL/L Specimen Performing Laboratory [facility] [address] [place] [address] * PTT (APTT) (12/14/2017 6:42 PM) Component Value Ref Range APTT 23.7 21.0 - 39.0 SEC Specimen Performing Laboratory [facility] [address] [place] [address] * BLOOD GASES, ARTERIAL (12/14/2017 6:41 PM) Component Value Ref Range pH-Arterial 7.32 (L) 7.35 - 7.45 pCO2-Arterial 33 (L) 35 - 45 MMHG pO2-Arterial 89 80 - 100 MMHG Base Deficit-Arterial 8.2 MMOL/L O2 Sat-Arterial 97.0 95 - 99 % Kkmvxfwmays-PKP-Qnd 17.8 (L) 21 - 28 MMOL/L Specimen Performing Laboratory Blood, arterial - Blood [facility] [address] [place] [address] * IONIZED CALCIUM (12/14/2017 6:41 PM) Component Value Ref Range Ionized Calcium 1.14 1.0 - 1.3 MMOL/L Specimen Performing Laboratory [facility] [address] [place] [address] * POTASSIUM, BG (12/14/2017 4:51 PM) Component Value Ref Range Potassium 4.9 3.5 - 5.1 MMOL/L Specimen Performing Laboratory [facility] [address] [place] [address] * SODIUM,BG (12/14/2017 4:51 PM) Component Value Ref Range Sodium 139 137 - 147 MMOL/L Specimen Performing Laboratory [facility] [address] [place] [address] * IONIZED CALCIUM,BG (12/14/2017 4:51 PM) Component Value Ref Range Ionized Calcium 1.12 1.0 - 1.3 MMOL/L Specimen Performing Laboratory [facility] [address] [place] [address] * GLUCOSE,BG (12/14/2017 4:51 PM) Component Value Ref Range Glucose 263 (H) 70 - 100 MG/DL Specimen Performing Laboratory [facility] [address] [place] [address] * BLOOD GASES, ARTERIAL (12/14/2017 4:51 PM) Component Value Ref Range pH-Arterial 7.32 (L) 7.35 - 7.45 pCO2-Arterial 37 35 - 45 MMHG pO2-Arterial 159 (H) 80 - 100 MMHG Base Deficit-Arterial 6.4 MMOL/L O2 Sat-Arterial 99.4 (H) 95 - 99 % Qniykseuqiw-VTA-Lzn 19.2 (L) 21 - 28 MMOL/L Specimen Performing Laboratory Blood, arterial - Blood [facility] [address] [place] [address] * HEMOGLOBIN & HEMATOCRIT, BG (12/14/2017 4:51 PM) Component Value Ref Range Hemoglobin BG 12.0 12.0 - 15.0 GM/DL Hematocrit BG 37.1 36 - 45 % Specimen Performing Laboratory [facility] [address] [place] [address] * DELIVER & TRANSFUSE RED BLOOD CELLS [...] MMOL/L Specimen Performing Laboratory [facility] [address] [place] [address] * SODIUM,BG (12/14/2017 3:45 PM) Component Value Ref Range Sodium 138 137 - 147 MMOL/L Specimen Performing Laboratory [facility] [address] [place] [address] * IONIZED CALCIUM,BG (12/14/2017 3:45 PM) Component Value Ref Range Ionized Calcium 1.12 1.0 - 1.3 MMOL/L Specimen Performing Laboratory Blood [facility] [address] [place] [address] * GLUCOSE,BG (12/14/2017 3:45 PM) Component Value Ref Range Glucose 278 (H) 70 - 100 MG/DL Specimen Performing Laboratory Blood [facility] [address] [place] [address] * BLOOD GASES, ARTERIAL (12/14/2017 3:45 PM) Component Value Ref Range pH-Arterial 7.30 (L) 7.35 - 7.45 pCO2-Arterial 45 35 - 45 MMHG pO2-Arterial 143 (H) 80 - 100 MMHG Base Deficit-Arterial 4.3 MMOL/L O2 Sat-Arterial 99.0 95 - 99 % Mnjxipnskug-LQK-Fhq 20.8 (L) 21 - 28 MMOL/L Specimen Performing Laboratory Blood, arterial - Blood [facility] [address] [place] [address] * HEMOGLOBIN & HEMATOCRIT, BG (12/14/2017 3:45 PM) Component Value Ref Range Hemoglobin BG 9.7 (L) 12.0 - 15.0 GM/DL Hematocrit BG 30.2 (L) 36 - 45 % Specimen Performing Laboratory Blood [facility] [address] [place] [address] * DELIVER & TRANSFUSE RED BLOOD CELLS (INTRAOP ONLY) (12/14/2017 3:31 PM) Specimen Performing Laboratory Blood * LACTIC ACID (BG - RAPID LACTATE) (12/14/2017 2:34 PM) Component Value Ref Range Lactic Acid,BG 0.8 0.5 - 2.0 MMOL/L Specimen Performing Laboratory [facility] [address] [place] [address] * POTASSIUM, BG (12/14/2017 2:34 PM) Component Value Ref Range Potassium 4.4 3.5 - 5.1 MMOL/L Specimen Performing Laboratory [facility] [address] [place] [address] * SODIUM,BG (12/14/2017 2:34 PM) Component Value Ref Range Sodium 137 137 - 147 MMOL/L Specimen Performing Laboratory [facility] [address] [place] [address] * IONIZED CALCIUM,BG (12/14/2017 2:34 PM) Component Value Ref Range Ionized Calcium 1.12 1.0 - 1.3 MMOL/L Specimen Performing Laboratory Blood [facility] [address] [place] [address] * GLUCOSE,BG (12/14/2017 2:34 PM) Component Value Ref Range Glucose 244 (H) 70 - 100 MG/DL Specimen Performing Laboratory Blood [facility] [address] [place] [address] * BLOOD GASES, ARTERIAL (12/14/2017 2:34 PM) Component Value Ref Range pH-Arterial 7.34 (L) 7.35 - 7.45 pCO2-Arterial 43 35 - 45 MMHG pO2-Arterial 140 (H) 80 - 100 MMHG Base Deficit-Arterial 2.5 MMOL/L O2 Sat-Arterial 99.1 (H) 95 - 99 % Msensqebqty-IOY-Sme 22.4 21 - 28 MMOL/L Specimen Performing Laboratory Blood, arterial - Blood [facility] [address] [place], [place] [id number] * HEMOGLOBIN & HEMATOCRIT, BG (12/14/2017 2:34 PM) Component Value Ref Range Hemoglobin BG 8.5 (L) 12.0 - 15.0 GM/DL Hematocrit BG 26.5 (L) 36 - 45 % Specimen Performing Laboratory Blood [facility] [address] [place] [address] * LACTIC ACID (BG - RAPID LACTATE) (12/14/2017 1:25 PM) Component Value Ref Range Lactic Acid,BG 1.0 0.5 - 2.0 MMOL/L Specimen Performing Laboratory [facility] [address] [place], [place] [id number] * POTASSIUM, BG (12/14/2017 1:25 PM) Component Value Ref Range Potassium 4.5 3.5 - 5.1 MMOL/L Specimen Performing Laboratory [facility] [address] [place] [address] * SODIUM,BG (12/14/2017 1:25 PM) Component Value Ref Range Sodium 139 137 - 147 MMOL/L Specimen Performing Laboratory [facility] [address] [place] [address] * IONIZED CALCIUM,BG (12/14/2017 1:25 PM) Component Value Ref Range Ionized Calcium 1.13 1.0 - 1.3 MMOL/L Specimen Performing Laboratory [facility] [address] [place] [address] * GLUCOSE,BG (12/14/2017 1:25 PM) Component Value Ref Range Glucose 236 (H) 70 - 100 MG/DL Specimen Performing Laboratory [facility] [address] [place] [address] * BLOOD GASES, ARTERIAL (12/14/2017 1:25 PM) Component Value Ref Range pH-Arterial 7.35 7.35 - 7.45 pCO2-Arterial 42 35 - 45 MMHG pO2-Arterial 146 (H) 80 - 100 MMHG Base Deficit-Arterial 2.4 MMOL/L O2 Sat-Arterial 99.2 (H) 95 - 99 % Wbxfwuuapbn-GXL-Doa 22.4 21 - 28 MMOL/L Specimen Performing Laboratory Blood, arterial - Blood [facility] [address] [place] [address] * HEMOGLOBIN & HEMATOCRIT, BG (12/14/2017 1:25 PM) Component Value Ref Range Hemoglobin BG 9.2 (L) 12.0 - 15.0 GM/DL Hematocrit BG 28.6 (L) 36 - 45 % Specimen Performing Laboratory [facility] [address] [place] [address] * POTASSIUM, BG (12/14/2017 11:44 AM) Component Value Ref Range Potassium 4.6 3.5 - 5.1 MMOL/L Specimen Performing Laboratory [facility] [address] [place] [address] * SODIUM,BG (12/14/2017 11:44 AM) Component Value Ref Range Sodium 140 137 - 147 MMOL/L Specimen Performing Laboratory [facility] [address] [place] [address] * IONIZED CALCIUM,BG (12/14/2017 11:44 AM) Component Value Ref Range Ionized Calcium 1.17 1.0 - 1.3 MMOL/L Specimen Performing Laboratory [facility] [address] [place] [address] * GLUCOSE,BG (12/14/2017 11:44 AM) Component Value Ref Range Glucose 241 (H) 70 - 100 MG/DL Specimen Performing Laboratory [facility] [address] [place] [address] * BLOOD GASES, ARTERIAL (12/14/2017 11:44 AM) Component Value Ref Range pH-Arterial 7.37 7.35 - 7.45 pCO2-Arterial 43 35 - 45 MMHG pO2-Arterial 127 (H) 80 - 100 MMHG Base Deficit-Arterial 0.7 MMOL/L O2 Sat-Arterial 98.8 95 - 99 % Jzqtgwdkcyk-NQX-Zpn 23.8 21 - 28 MMOL/L Specimen Performing Laboratory Blood, arterial - Blood [facility] [address] [place] [address] * HEMOGLOBIN & HEMATOCRIT, BG (12/14/2017 11:44 AM) Component Value Ref Range Hemoglobin BG 10.0 (L) 12.0 - 15.0 GM/DL Hematocrit BG 31.0 (L) 36 - 45 % Specimen Performing Laboratory [facility] [address] [place] [address] * SURGICAL PATHOLOGY (12/14/2017 10:23 AM) Component Value Ref Range PATHOLOGY REPORT [email or web address] Department of Pathology and Laboratory Medicine [address] [place] [address] Surgical Pathology Office:[phone]:[phone] SURGICAL PATHOLOGY REPORT NAME: BEATA KAISER SURG PATH #: [id number] MR #: [id number] SPECIMEN CLASS: SR BILLING #: [id number] ALT ID #:LOCATION: [id number] DATE OF PROCEDURE: 12/14/2017 AGE:52 SEX: F DATE RECEIVED: 12/14/2017 : 1965TIME RECEIVED:10:23 PHYSICIAN: TAMIKO LUTHER DATE OF REPORT: 12/22/2017 COPY TO: [facility] DATE OF PRINTIN12/22/2017 ################################################## ###################### Final Diagnosis: [...] cm aggregate of gallardo-pink soft tissue fragments. Marketing Regional Consultant sections of the specimen are submitted in [...] submitted to [facility] Repository Core Facility: No Marketing Regional Consultant sections of the specimen are submitted as follows: H1 Marketing Regional Consultant section of skin scar and surrounding gallardo purple bruised-appearing skin. H2 Marketing Regional Consultant proximal skin, soft tissue and muscle margin. H3-H6 Marketing Regional Consultant sections from the hemorrhagic cavity within the subcutaneous and adipose tissue. H7-H10 Tumor within muscle and soft tissue. H11 Bone margin at pubic symphysis (placed in decalcification solution prior to processing). F18-I91Sqhaz within pubis bone adjacent to acetabulum (H12 is placed in decalcification solution prior to processing). H 14-N87Uuqbb within the ilium (H15 is placed in decalcification solution prior to processing). H16 Tumor two gluteus medius. X39-C89Poczuyvutg environmental marketing representative sections throughout the tumor.(brm) I. Received in formalin labeled with the patient's name and "additional tissue, left hemipelvectomy" is a 5.9 x 4.2 x 1.5 cm aggregate of gallardo-pink soft tissue fragments and bone. These tissue fragments are not oriented. Marketing Regional Consultant sections are submitted in cassettes I1 and I2 (I2 is placed in decalcification solution prior to processing). Also in the container is a 9.5 x 7.2 x 3.1 cm red-brown portion of muscle and attached yellow adipose tissue. The specimen is serially sectioned to reveal red-brown unremarkable muscle and yellow unremarkable adipose tissue. Marketing Regional Consultant sections from throughout the specimen are submitted in cassettes I3-I5. (brm) sc/12/14/2017 Intraoperative Consultation: A1FS, skeletal muscle, "paraspinous muscle margin", biopsy: Negative for malignancy. B1FS, skeletal muscle, "abdominal muscle margin", biopsy: Negative for malignancy. C1FS, skeletal muscle, "psoas margin", biopsy: Negative for malignancy. D1FS, bone and soft tissue, "pubis margin", biopsy: Focal atypical cells present. E1FS, bone and soft tissue, "pubis margin #2", biopsy: Microscopic focus suspicious for chondrosarcoma. X3HO-U7XH, vein contents, "vein contents", biopsy: Chondrosarcoma G1FS, [...] questions. Specimen Performing Laboratory [facility] [address] [place] [address] * CBC (12/14/2017 6:12 AM) Component Value [...] [place] Specimen Performing Laboratory [facility] [address] [place] [address] * PTT (APTT) (12/14/2017 6:12 AM) Component Value Ref Range APTT 29.3 21.0 - 39.0 SEC Specimen Performing Laboratory [facility] [address] [place], [place] [id number] * PTT (APTT) (12/13/2017 8:49 PM) Component Value Ref Range APTT 95.1 (H) 21.0 - 39.0 SEC Specimen Performing Laboratory [facility] [address] [place], [place] [id number] * PTT (APTT) (12/13/2017 11:30 AM) Component Value Ref Range APTT 38.7 21.0 - 39.0 SEC Specimen Performing Laboratory [facility] [address] [place] [address] * TYPE & CROSSMATCH (12/13/2017 11:17 AM) Component Value Ref Range Units Ordered 8 Crossmatch Expires 12/16/2017 Record Check FOUND ABO/RH(D) A POS Antibody Screen NEG Electronic Crossmatch YES Unit Number [id number] Blood Component Type RBC,ADSOL,LEUKO REDUCED Unit Division 0 Status OF Unit TRANSFUSED Transfusion Status OK TO TRANSFUSE Crossmatch Result COMPATIBLE,ELECTRONIC Unit Number [id number] Blood Component Type RBC,ADSOL,LEUKO REDUCED Unit Division 0 Status OF Unit TRANSFUSED Transfusion Status OK TO TRANSFUSE Crossmatch Result COMPATIBLE,ELECTRONIC Unit Number [id number] Blood Component Type RBC,ADSOL,LEUKO REDUCED Unit Division 0 Status OF Unit TRANSFUSED Transfusion Status OK TO TRANSFUSE Crossmatch Result COMPATIBLE,ELECTRONIC Unit Number [id number] Blood Component Type RBC,ADSOL,LEUKO REDUCED Unit Division 0 Status OF Unit REL FROM ALLOC Transfusion Status OK TO TRANSFUSE Crossmatch Result COMPATIBLE,ELECTRONIC Unit Number [id number] Blood Component Type RBC,ADSOL,LEUKO REDUCED Unit Division 0 Status OF Unit TRANSFUSED Transfusion Status OK TO TRANSFUSE Crossmatch Result COMPATIBLE,ELECTRONIC Unit Number [id number] Blood Component Type RBC,ADSOL,LEUKO REDUCED Unit Division 0 Status OF Unit REL FROM ALLOC Transfusion Status OK TO TRANSFUSE Crossmatch Result COMPATIBLE,ELECTRONIC Unit Number [id number] Blood Component Type RBC,ADSOL,LEUKO REDUCED Unit Division 0 Status OF Unit TRANSFUSED Transfusion Status OK TO TRANSFUSE Crossmatch Result COMPATIBLE,ELECTRONIC Unit Number [id number] Blood Component Type RBC,ADSOL,LEUKO REDUCED,2ND CONT. Unit Division 0 Status OF Unit REL FROM ALLOC Transfusion Status OK TO TRANSFUSE Crossmatch Result COMPATIBLE,ELECTRONIC Unit Number [id number] Blood Component Type RBC,ADSOL,LEUKO REDUCED,2ND CONT. Unit Division 0 Status OF Unit TRANSFUSED Transfusion Status OK TO TRANSFUSE Crossmatch Result COMPATIBLE,ELECTRONIC Specimen Performing Laboratory [facility] [address] [place] [address] * BASIC METABOLIC PANEL (12/13/2017 11:17 AM) [...] Performing Laboratory [facility] [address] [place] [address] * CBC (12/13/2017 11:17 AM) Component Value [...] [place] Specimen Performing Laboratory [facility] [address] [place] [address] in this encounter Visit Diagnoses Diagnosis Pelvic mass in female Abdominal or pelvic swelling, mass or lump, unspecified site Admitting Diagnoses Diagnosis Pelvic mass - Pelvic [...] mL, Oral, EVERY 6 HOURS PRN, Starting Wed12/20/17 at 0850, Until Wed01/14/18 at 1559, Indigestion/Heartburn [...] mg, Oral, EVERY 4 HOURS PRN, Starting 12/22/17 at 1313, Until Wed01/14/18 at 1559, Indigestion/Heartburn, Each tab delivers 200mg elemental calcium. Given 12/25/2017 1,000 mg 13:49 CDT Given 01/13/2018 1,000 mg 14:09 CDT collagenase (SANTYL) topical ointment Given 01/13/2018 Topical, DAILY, First dose on Christy 11:49 CDT 01/13/18 at 1230, Until Discontinued, Apply to left lower abdominal wound daily. See wound care instructions or wound team note. Given 01/14/2018 08:20 CDT diazePAM (VALIUM) tablet 2.5-5 mg Given 01/11/2018 2.5 mg 2.5-5 mg, Oral, EVERY 6 HOURS PRN, 01:06 CDT Starting 12/19/17 at 1030, Until Wed01/14/18 at 1559, Spasms [...] Minutes, EVERY 24 HOURS, First dose on 01/10/18 at 1715, Until Discontinued, Reconstitute each 1 [...] used only with wound vac changes on MW Given 01/14/2018 1 mg 09:34 CDT insulin [...] , , administer 6 units insulin, at 21, [...] 01/13/2018 30 Units Abdominal 22:05 CDT Tissue lactobacillus rhamnosus GG (CULTURELLE) Given 01/13/2018 1 [...] EVERY 6 HOURS PRN, 22:27 CDT Starting 12/13/17 at 1028, Until Wed01/14/18 at 1559, Nausea/Vomiting Injectable oxyCODONE (ROXICODONE, OXY-IR) tablet Given 01/14/2018 20 [...] 1 capsule 1 capsule, Feeding Tube, NEEDED (ASSISTANT LIBRARIAN FROM RX), Starting 12/27/17 at 1631, Until [...] WITH BREAKFAST, First 08:44 CDT dose on 12/20/17 at 0945, Until Discontinued, Administer with food. NOTE: This is a HIGH ALERT Medication. Given 01/13/2018 20 mg 09:05 CDT Given 01/14/2018 20 mg 08:08 CDT simethicone (MYLICON) chew tablet 80 mg Given 01/05/2018 80 mg 80 mg, Oral, EVERY 6 HOURS PRN, 13:33 CDT Starting Wed01/05/18 at 1325, Until 01/14/18 at 1559, Flatulence Given 01/05/2018 80 mg 20:46 CDT vitamin A & D topical ointment Given 01/13/2018 Topical, TWICE DAILY, First dose on Sun 12:00 CDT 12/26/17 at 2100, Until Discontinued, Apply thin layer of ointment to Labia wound and left lower abdomen. Given 01/13/2018 21:00 CDT Given 01/14/2018 08:15 CDT in this encounter
--- OUTSIDE RECORDS SUMMARY | 2018-03-06 22:25 | XMS REPORT | Encounter Summary ---
Author Author [facility] Organization [facility] Address Unknown Phone Unavailable Care Team Providers Care Lock Plater Name Role Phone Della Cuellar MD PCP Reason for Visit * Auth/Cert Status Reason Specialty Diagnoses / Referred By Referred To Procedures Contact Contact Diagnoses Pelvic mass Pelvic mass [R19.00] Pelvic mass in female P rocedures [place] INTERPELVIABDOMI NAL AMPUTATION CHEY PELVECTOMY Encounter Details Date Type Department Care Team Description 12/15/2017 Anesthesia SICU Gagan Mckenna, DO Event [address] [place] [address] [place] [address] [phone] Anesthesia Record Procedure Name Responsible Anesthesia Start Time Anesthesia Stop Time Anesthesiologist ANESTHESIA EPIDURAL BLOCK Date Time Event Comment 122 Epidural Placed 2017 122 Epidural Test Dose Meds Name Total ketamine (KETALAR) 10 mg/mL injection 20 mg phenylephrine (SRINIVAS-SYNEPHRINE) 0.1 mg/mL 200 mcg injection (SYRINGE) lidocaine PF 1% (10 mg/mL) injection 3 mL lidocaine 1.5% /EPINEPHrine 1:200,000 3 mL epidural test dose (5 mL amp) * No agents on file. * No blood administrations on file. Type [...] Sury, (NOT for SANJAY Glover Pressure Injuries) PICC 03/02/18; 1354; Other (Comment) (Rehab 03/02/18 1354 by Allen, Single [id number]); Cayla Crowell RN-CRNI timeout Cayla Villa VAT; Correct Patient, Correct Procedure, Correct Patient Position, Correct Equipment / Implants Available, Correct Side / Site Marked "YES"; Hand Hygiene, Cap , Mask, Sterile Gloves, Sterile Gown, Eye Protection, Full Body Sterile Drape; Chlorhexadine (CHG); Basilic, Right (CIRC 30cm); 4 FR; Microintroducer Technique, Ultrasound, Lidocaine Prep (Trimmed@ 38cm/inserted @ 38cm); Other (Comment) (vein size 3.6mm 36%); 1; Securement device, Chlorhexadine (CHG) impregnated sponge, Sterile occlusive dressing; Other (Comment) (picc tip level of CAJ per green donita and green 3CG) Epidural 12/15/17; 1220 (created via procedure 12/15/17 1220 by Fabi, 2221 by Mery, Catheter documentation); Lumbar DO Anabel Farah, RN in this encounter Social History Tobacco Use [...] of this encounter OR Notes * Anesthesia Procedure Notes - Aimee Aiken MD - 12/15/2017 12:50 PM CDT Associated Order(s): ANESTHESIA EPIDURAL BLOCK Anesthesia Procedure: Epidural Block EPIDURAL BLOCK Date/Time: [...] by: GAGAN MCKENNA Authorized by: AIMEE AIKEN in this encounter Miscellaneous Notes * Addendum Note - Aimee Aiken MD - 12/15/2017 3:34 PM CDT Formatting of this note may be different from the original. Addendum created 12/15/17 1534 by Aimee Aiken MD Anesthesia Intra Blocks edited, LDA updated via procedure documentation, Sign clinical note in this encounter Plan of Treatment Date Type Specialty Care Team Description 03/01/2018 Procedure Pass Cardiothoracic Surgery as of this encounter Results * ANESTHESIA EPIDURAL BLOCK (12/15/2017 12:50 PM) Narrative Aimee Aiken MD 12/15/20173:34 PM Anesthesia Procedure: Epidural Block [...] by: GAGAN MCKENNA Authorized by: AIMEE AIKEN in this encounter Visit Diagnoses Not on filein this encounter Administered Medications Medication Order MAR Action Action Date Dose Rate Site ketamine (KETALAR) injection Given 12/15/2017 20 mg INTRA-PROCEDURE MED, Starting Wed 12:15 CDT 12/15/17 at 1215, Until Wed12/15/17 at 1251, Anesthesia Intra-op lidocaine 1.5%/EPINEPHrine 1:200,000 Given 12/15/2017 3 mL injection 12:21 CDT INTRA-PROCEDURE MED, Starting Wed12/15/17 at 1221, Until Wed12/15/17 at 1251, Anesthesia Intra-op lidocaine PF 1% (10 mg/mL) injection Given 12/15/2017 3 mL INTRA-PROCEDURE MED, Starting Wed 12:17 CDT 12/15/17 at 1217, Until Wed12/15/17 at 1251, Anesthesia Intra-op phenylephrine in NS Injection Given 12/15/2017 100 mcg INTRA-PROCEDURE MED, Starting Wed 12:30 CDT 12/15/17 at 1230, Until Wed12/15/17 at 1251, Symptomatic Hypotension, Anesthesia Intra-op Given 12/15/2017 100 mcg 12:35 CDT in this encounter
--- OUTSIDE RECORDS SUMMARY | 2018-03-06 22:25 | XMS REPORT | Encounter Summary ---
Author Author [facility] Organization [facility] Address Unknown Phone Unavailable Care Team Providers Care Statistical Programmer Analyst Name Role Phone Della Cuellar MD PCP Encounter Details Date Type Department Care Team Description 12/14/2017 Procedure Pass Main Operating Room [address] [place] [address] Social History Tobacco Use Types Packs/Day Years [...]
--- OUTSIDE RECORDS SUMMARY | 2018-03-06 22:25 | XMS REPORT | Encounter Summary ---
Author Author [facility] Organization [facility] Address Unknown Phone Unavailable Care Team Providers Care Lump Machine Operator Name Role Phone Della Cuellar MD PCP Reason for Referral * Radiology Services Status Reason Specialty Diagnoses / Referred By Referred To Procedures Contact Contact No Auth Needed Radiology Diagnoses Dixon Purcell Gen Radiology Injury of MD Spencer [address] bladder, sequela [address] 2ND FLOOR rocedures [place] [address] [place], [place] [address] VOIDING [phone] Phone: Encounter Details Date Type Department Care Team Description 12/15/2017 Orders Only [facility] Spencer Purcell MD Injury of bladder, Physicians - Urology [address] sequela (Primary Dx) 2ND FLOOR POD A [place] [address] [place] [address] OFFICE BLDG [phone] [place] [address] Social History Tobacco Use Types [...] Surgery Name Priority Associated Diagnoses Order Schedule URETHROCYSTOGRAM VOIDING Routine Injury of bladder, Expected: 01/15/2018 sequela (Approximate), Expires: 12/15/2018 as of this encounter Visit Diagnoses Diagnosis Injury of bladder, sequela - Primary
--- OUTSIDE RECORDS SUMMARY | 2018-03-06 22:25 | XMS REPORT | Encounter Summary ---
Author Author [facility] Organization [facility] Address Unknown Phone Unavailable Care Team Providers Care Manufacturing Chief Engineer Name Role Phone Della Cuellar MD PCP Encounter Details Date Type Department Care Team Description 12/25/2017 Procedure Pass Ortho/Fam Med [address] [place] [address] Social History Tobacco Use Types Packs/Day Years [...]
--- OUTSIDE RECORDS SUMMARY | 2018-03-06 22:25 | XMS REPORT | Encounter Summary ---
Author Author [facility] Organization [facility] Address Unknown Phone Unavailable Care Team Providers Care Well Head Pumper Name Role Phone Della Cuellar MD PCP Reason for Visit * Auth/Cert Status Reason Specialty Diagnoses / Referred By Referred To Procedures Contact Contact Diagnoses Pelvic mass Pelvic mass [R19.00] Pelvic mass in female P rocedures [place] INTERPELVIABDOMI NAL AMPUTATION CHEY PELVECTOMY Encounter Details Date Type Department Care Team Description 12/30/2017 Anesthesia [place] Operating [facility] Price Mccartney, SRNA Event [address] [place] [address] Anesthesia Record Procedure Name Responsible Anesthesia Start Time Anesthesia Stop Time Anesthesiologist COLOSTOMY DIVERTING David MENDOZA Timothy, MD 12/30/17 0840 12/30/17 1211 EXPLORATORY LAPAROTOMY LYSIS OF ADHESIONS, (N/A Abdomen) Date Time Event Comment 837 AN Equip Check 2017 0840 Anes Start 0843 An Start Data 0901 An Induction The patient was reevaluated immediately before moderate or deep sedation use and before anesthesia induction. 0903 An Intubation 0904 Anesthesia Ready 0920 Proc Start 0945 Quick Note Blood sugar 184 1205 An Extubation 1206 an stop data 1211 Handoff to RN I completed my SBAR handoff to the receiving nurse. 1211 An Stop Meds Name Total midazolam (VERSED) 1 mg/mL injection 2 mg fentaNYL PF (SUBLIMAZE) injection 250 mcg lidocaine (2%) 200 mg/10mL Injection 100 mg syringe propofol (DIPRIVAN) 200 mg/ 20 mL 140 mg injection (VIAL) rocuronium (ZEMURON) injection 80 mg ondansetron (ZOFRAN) injection 4 mg dexamethasone (DECADRON) 4 mg/mL 4 mg injection phenylephrine (SRINIVAS-SYNEPHRINE) 0.1 mg/mL 400 mcg injection (SYRINGE) sugammadex (BRIDION) 100 mg/mL iv soln 197 mg phenylephrine (SRINIVAS-SYNEPHRINE) 20 mg in 6.71 mg sodium chloride 0.9% (NS) 250 mL IV drip (dbl conc) vasopressin (VASOSTRICT) 20 units/mL IV 1 Units soln (VIAL) ketamine (KETALAR) infusion 54.63 mg petrolatum PF (LUBRIFRESH PM) 1 Dose ophthalmic ointment piperacillin/tazobactam (ZOSYN) 4.5 4.5 g g/100 mL iso-osmotic IVPB acetaminophen (OFIRMEV) 1,000 mg 1,000 mg injection lactated ringers infusion 1,600 mL electrolyte-A (PLASMA-LYTE A PH 7.4) 500 mL infusion * Name O2 N2O Inspired Air Sevoflurane Isoflurane Desflurane Inspired Sevoflurane * No blood administrations on file. Type Details Placement Removal Wounds 11/30/17; 0853; Left; Buttocks; Surgical 11/30/17 0853 by (NOT for Incision; Carlos Manuel Rosales Drain, Sutures, [place], Hussain Pressure xeroform, 4x4's, and tegaderm. Injuries) Wounds 11/30/17; 1427; Right, Anterior; Neck; 11/30/17 1427 by (NOT for Surgical Incision BlanquitaItaliah Pressure Injuries) Wounds 12/14/17; 1748; Left; Abdomen; Ulcer 12/14/17 1748 by Manny (NOT for (not from pressure) SANJAY Garcia Pressure Injuries) Wounds 12/30/17; 1002; Left, Anterior; Surgical 12/30/17 1002 by Matthew, (NOT for Incision; stump; Suture, ceci, telfa Eunice Pressure and iodine, 4x4, and tegaderm Injuries) Colostomy 12/30/17; 1209 (placed in the OR prior 12/30/17 1209 by Tre, to PACU); Right SANJAY Odell Peripheral 12/13/17; 1138; IV Therapy; L; Mid; 12/13/17 1138 by 1755 by Chelsie, IV Forearm; 20 G; No; Ultrasound; 1; 1.75 Trembath, Ramos, SANJAY Sunshine inches; Therapy completed; 12/30/17; 1755 Peripheral 12/13/17; 1138; IV Therapy; L; Mid; 12/13/17 1138 by 1756 by Chelsie, IV Upper Arm (cephalic); 20 G; No; Ramos Patton RN Tori Ultrasound; 1; 1.75 inches; Therapy completed; 12/30/17; 1756 Indwelling 12/14/17; 1633; Urology; 20 FR; Regular 12/14/17 1633 by Manny, 01/10/18 0000 by Sury Urinary (Two-way); 01/10/18 SANJAY Garcia, RN Catheter Epidural 12/15/17; 1220 (created via procedure 12/15/17 1220 by Fabi, 2221 by Mery, Catheter documentation); Lumbar DO Anabel Farah, SANJAY Wounds 12/20/17; 1530; Right, Lower; Abdomen; 12/20/17 1530 by Sushil, 02/25/18 1505 by Lauri, (NOT for Moisture Associated Skin Damage; SANJAY Bryant, RN Pressure 02/25/18; 1505 Injuries) Wounds 12/23/17; 1345; Left; Labia; 02/25/18; 12/23/17 1345 by White, 1505 by Lauri, (NOT for 1505 SANJAY Cardoza, RN Pressure Injuries) Nasoduoden 12/28/17; Left Nare; 01/21/18; 0730 12/28/17 0000 by Mery, 01/21/18 0730 by huber Valdez Tube Anabel, SANJAY Quesada NG/OG Tube 12/28/17; 0500; Left Nare; 10 FR; 12/28/17 0500 by 01/03/18 0000 by Mery, 01/03/18 Anita Hines RN Constance, RN ETT 12/30/17; 0903; Ventilated by mask (1); 12/30/17 0903 by Alexandru, 09/06 1205 by Alexandru Direct laryngoscopy, Rapid sequenceJami CRNA Elizabeth A, AYSE Stylet (Modified rapid sequence with one breath and cricoid pressure); Single-Lumen, Cuffed; 7mm; Mac; 3; Oral; 1-Full view of the glottis; 1 insertion attempt; 21 centimeters; 12/30/17; 1205 Ileal 12/30/17; 1115; Left; 12/30/17; 1607 12/30/17 1115 by Matthew, 12/30 1607 by Helen Kruger RN in this encounter Social History Tobacco [...] OR Notes * Anesthesia Postprocedure Evaluation - Michele Dumont MD - 12/30/2017 2:44 PM CDT Formatting of this note may be different from the original. Post-Anesthesia Evaluation Name: Beata Kaiser : 1965 Age: 52 y.o. Sex: female Procedure Date: 12/30/2017 Procedure: Procedure(s) with comments: COLOSTOMY DIVERTING LOOP, EXPLORATORY LAPAROTOMY LYSIS OF ADHESIONS, - CASE LENGTH 2 HOURS, CLIPPING AND HIBICLENS PREP TO BE DONE IN SDS/PRE-POST Surgeon: Surgeon(s): Priyank Mccollum, Montez Sim, Herberth Severino DO Post-Anesthesia Vitals Post Anesthesia Evaluation Note Evaluation location: Pre/Post Patient participation: recovered; patient participated in evaluation Level of consciousness: alert Pain score: 3 Pain management: adequate Hydration: normovolemia Temperature: 36.0C - 38.4C Airway patency: adequate Perioperative Events Perioperative events: no Post-op nausea and vomiting: no PONV Postoperative Status Cardiovascular status: hemodynamically stable Respiratory status: spontaneous ventilation and supplemental oxygen Follow-up needed: none Perioperative Events Perioperative Event: No Post-Anesthesia Evaluation Attestation: I reviewed and agree the indicated post- anethesia care was provided. Staff name: Michele Dumont MD Date: 12/30/2017 * Anesthesia Preprocedure Evaluation - Aguilar Hernandez MD - 12/29/2017 1:36 PM CDT Formatting of this note may be different from the original. Anesthesia Pre-Procedure Evaluation Name: Beata Kaiser : 1965 Age: 52 y.o. Sex: female Procedure Date: 12/30/2017 Procedure: Procedure(s) with comments: COLOSTOMY DIVERTING LOOP - CASE LENGTH 2 HOURS, CLIPPING AND HIBICLENS PREP TO BE DONE IN SDS/PRE-POST Physical Assessment Vital Signs (last filed in past 24 hours): BP: 140/87 (12/29 1130) Temp: 36.4 C (97.6 F) (12/29 1130) Pulse: 103 (12/29 1130) Respirations: 16 PER MINUTE (12/29 1130) SpO2: 95 % (12/29 1130) O2 Delivery: None (Room Air) (12/29 1130) Patient History Allergies Allergen Reactions Cephalexin SEE [...] Hematology: Lab Results Component Value Date HGB 7.7 12/29/2017 HCT 22.8 12/29/2017 PLTCT 434 12/29/2017 WBC 16.4 12/29/2017 NEUT 78 12/28/2017 ANC 12.96 12/29/2017 ANC 13.80 12/28/2017 LYMPH 12 12/29/2017 ALC 2.20 12/28/2017 CALVIN 6 12/28/2017 AMC 1.10 12/28/2017 EOSA 3 12/28/2017 ABC 0.00 12/28/2017 MCV 88.3 12/29/2017 MCH 29.7 12/29/2017 MCHC 33.7 12/29/2017 MPV 6.4 12/29/2017 RDW 14.9 12/29/2017 General Chemistry: Lab Results Component Value Date NA 134 12/29/2017 K 4.5 12/29/2017 CL 100 12/29/2017 CO2 29 12/29/2017 GAP 5 12/29/2017 BUN 14 12/29/2017 CR 0.85 12/29/2017 GLU 271 12/29/2017 CA 8.4 12/29/2017 ALBUMIN 2.0 12/22/2017 ALBUMIN 1.9 12/22/2017 LACTIC 1.9 12/21/2017 OBSCA 1.07 12/19/2017 MG 2.0 12/26/2017 TOTBILI 0.4 12/22/2017 PO4 2.1 12/26/2017 Coagulation: Lab Results Component Value Date PTT 23.7 12/14/2017 INR 1.0 11/30/2017 Anesthesia Plan ASA score: 3 Plan: general and regional for postoperative pain Induction method: intravenous NPO status: acceptable Informed Consent Anesthetic plan and risks discussed with patient. Use of blood products discussed with patient; consented to blood products. Plan discussed with: anesthesiologist and LOCKER ROOM SUPERVISOR. in this encounter Miscellaneous Notes * Addendum Note - Noé Sullivan MD - 12/30/2017 2:45 PM CDT Formatting of this note may be different from the original. Addendum created 12/30/17 8751 by Noé Sullivan MD Anesthesia Staff edited in this encounter Plan of Treatment Date Type Specialty Care Team Description 03/01/2018 Procedure Pass Cardiothoracic Surgery as of this encounter Visit Diagnoses Not on filein this encounter Administered Medications Medication Order MAR Action Action Date Dose Rate Site acetaminophen (OFIRMEV) injection Given 12/30/2017 1,000 mg Administer over 15 Minutes, 10:50 CDT INTRA-PROCEDURE MED, Starting Christy 12/30/17 at 1050, Until Christy 12/30/17 at 1227, Pain non-opioid: may be used alone or in combination with opioid analgesia, Anesthesia Intra-op dexamethasone (DECADRON) injection Given 12/30/2017 4 mg Intravenous, INTRA-PROCEDURE MED, 09:14 CDT Starting Christy 12/30/17 at 0914, Until Christy 12/30/17 at 1227, Nausea/Vomiting Injectable, Anesthesia Intra-op electrolyte-A (PLASMA-LYTE A PH 7.4) Given - New 12/30/2017 injection Bag 09:40 CDT INTRA-PROCEDURE MED(CONT), Starting Christy 12/30/17 at 0940, Until Discontinued, Anesthesia Intra-op fentaNYL citrate PF (SUBLIMAZE) Given 12/30/2017 50 mcg injection 10:55 CDT INTRA-PROCEDURE MED, Starting Christy 12/30/17 at 0855, Until Christy 12/30/17 at 1227, Pain Injectable, Anesthesia Intra-op Given 12/30/2017 50 mcg 11:33 CDT Given 12/30/2017 50 mcg 12:08 CDT ketamine (KETALAR) infusion Bolus 12/30/2017 10,000 mcg INTRA-PROCEDURE MED(CONT), Starting Christy 09:50 CDT 12/30/17 at 0945, Until Discontinued, Anesthesia Intra-op Bolus 12/30/2017 10,000 mcg 10:00 CDT Bolus 12/30/2017 10,000 mcg 10:16 CDT lactated ringers infusion Given - New 12/30/2017 1,000 mL 20 mL/hr 1,000 mL, 1,000 mL, Intravenous, at 20 Bag 08:39 CDT mL/hr, CONTINUOUS, Starting Christy 12/30/17 at 0745, Until 01/01/18 at 0744, Pre-Op Given - New Bag 12/30/2017 10:23 CDT lidocaine (PF) injection Given 12/30/2017 100 mg INTRA-PROCEDURE MED, Starting Christy 09:01 CDT 12/30/17 at 0901, Until Christy 12/30/17 at 1227, Anesthesia Intra-op midazolam (VERSED) injection Given 12/30/2017 2 mg Intravenous, INTRA-PROCEDURE MED, 08:40 CDT Starting Christy 12/30/17 at 0840, Until Christy 12/30/17 at 1227, Agitation Injectable, Anxiety Injectable, Anesthesia Intra-op ondansetron (ZOFRAN) injection Given 12/30/2017 4 mg Intravenous, INTRA-PROCEDURE MED, 10:48 CDT Starting Christy 12/30/17 at 1048, Until Christy 12/30/17 at 1227, Nausea/Vomiting Injectable, Anesthesia Intra-op petrolatum PF (LUBRIFRESH PM) ophthalmic Given 12/30/2017 1 Dose ointment 10:21 CDT INTRA-PROCEDURE MED, Starting Christy 12/30/17 at 1021, Until Christy 12/30/17 at 1227, Dry Eyes, Irritated Eyes, Anesthesia Intra-op phenylephrine (SRINIVAS-SYNEPHRINE) 20 mg in Dose/Rate 12/30/2017 0.1 7.4 mL /hr sodium chloride 0.9% (NS) 250 mL IV drip Change 10:51 CDT mcg/kg/min (dbl conc) 250 mL, INTRA-PROCEDURE MED(CONT), Starting Christy 12/30/17 at 0920, Until Discontinued, Anesthesia Intra-op Bolus 12/30/2017 100 mcg 11:45 CDT Bolus 12/30/2017 100 mcg 11:55 CDT phenylephrine in NS Injection Given 12/30/2017 200 mcg Intravenous, INTRA-PROCEDURE MED, 09:10 CDT Starting Christy 12/30/17 at 0910, Until Christy 12/30/17 at 1227, Symptomatic Hypotension, Anesthesia Intra-op Given 12/30/2017 200 mcg 09:17 CDT piperacillin/tazobactam (ZOSYN) 4.5 Given - New 01/10/2018 4.5 g 200 mL/hr g/100 mL iso-osmotic IVPB Bag 03:35 CDT 4.5 g, Intravenous, at 200 mL/hr, EVERY 6 HOURS, First dose on Wed12/22/17 at 1815, Until Discontinued Given - New Bag 01/10/2018 4.5 g 200 mL/hr 10:01 CDT Given - New Bag 01/10/2018 4.5 g 200 mL/hr 15:05 CDT propofol (DIPRIVAN) injection Given 12/30/2017 100 mg INTRA-PROCEDURE MED, Starting Christy 09:01 CDT 12/30/17 at 0901, Until Christy 12/30/17 at 1227, Anesthesia Intra-op Given 12/30/2017 40 mg 11:42 CDT rocuronium (ZEMURON) injection Given 12/30/2017 70 mg Intravenous, INTRA-PROCEDURE MED, 09:01 CDT Starting Christy 12/30/17 at 0901, Until Christy 12/30/17 at 1227, Anesthesia Intra-op Given 12/30/2017 10 mg 10:22 CDT sugammadex (BRIDION) injection Given 12/30/2017 197 mg Intravenous, INTRA-PROCEDURE MED, 11:26 CDT Starting Christy 12/30/17 at 1126, Until Christy 12/30/17 at 1227, Anesthesia Intra-op vasopressin (VASOSTRICT) injection Given 12/30/2017 1 Units INTRA-PROCEDURE MED, Starting Christy 09:39 CDT 12/30/17 at 0939, Until Christy 12/30/17 at 1227, Anesthesia Intra-op in this encounter
--- OUTSIDE RECORDS SUMMARY | 2018-03-06 22:25 | XMS REPORT | Encounter Summary ---
Author Author [facility] Organization [facility] Address Unknown Phone Unavailable Care Team Providers Care Deputy Director Of Nursing Name Role Phone Della Cuellar MD PCP Encounter Details Date Type Department Care Team Description 12/14/2017 Procedure Pass Main Operating Room [address] [place] [address] Social History Tobacco Use Types Packs/Day Years [...]
--- OUTSIDE RECORDS SUMMARY | 2018-03-06 22:32 | XMS REPORT | Encounter Summary ---
Author Author [facility] Organization [facility] Address Unknown Phone Unavailable Care Team Providers Care Rd Project Manager Name Role Phone Della Cuellar MD PCP Reason for Visit * Auth/Cert Status Reason Specialty Diagnoses / Referred By Referred To Procedures Contact Contact Diagnoses Pelvic mass Pelvic mass [R19.00] Pelvic mass in female P rocedures MI INTERPELVIABDOMI NAL AMPUTATION JAMIL PELVECTOMY Encounter Details Date Type Department Care Team Description 12/14/2017 Surgery Main Operating Room Tamiko Luther MD JAMIL PELVECTOMY [address] [place] [address] OR [address] [place] [address] [phone] Social History Tobacco Use Types Packs/Day Years [...] 4:30 PM) Call the Orthopedic clinic at [phone] AFTER BUSINESS HOURS AND WEEKENDS Call [phone] and ask the portable canteen operator to page the on-call Orthopedic Resident. Discharging attending physician: TAMIKO LUTHER [[id number]] Diabetic Diet Recommend high protein diet for [...] home, you can call a dietitian at [phone]. Tube Feeding Formula: Isosource 1.5 Schedule: Continuous [...] Wednesday wound vac changes. Tunneled Catheter Line Usp Care Instructions: The bandage over the catheter [...] Take 1 capsule via feeding tube PRN (Wet Trimmer from Rx) ( Occluded Feeding Tube). PRESCRIPTION [...] as indicated above. Adrienne Zarate MD Pager [phone] 01/16/2018 cc: Primary Care Physician: Verified Referring [...] 03/02/2018 Units/ sodium bicarbonate feeding tube PRN (Wet Trimmer 650 mg(#) (KU CLOG from Rx) (Occluded [...] complete: Yes Report called and given to vocational rehabilitation consultant. * Adrienne Zarate MD - 01/14/2018 2:44 [...] recs- recommend [facility] [place] -Psych, SPEECH LANGUAGE ASSISTANT psych and psychology consults for coping, depression - appreciate assistance -Endocrine consult for blood sugar management - appreciate recs -ID consult - Ertapenem, micafungin -Nutrition following for optimization -General Surgery consult - colostomy 12/30 Dispo: Plan for DC today to [facility] Adrienne Zarate MD [id number] * Sofía Centeno - 01/14/2018 2:03 PM CDT I have reviewed the students documentation and agree with it. Tita Centeno MSN/MHA RN CCRN Vehicle Maintenance Supervisor - [facility] * Chari Moon - 01/14/2018 2:00 [...] Cognitive Status: Alert;Cooperative Persons Present: Father;Mother (Supervising CRUSHER FEEDER, CRUSHER FEEDER student) Pain: Patient complains of pain Pain [...] throughout the physical therapy session. * Emma See, RD - 01/14/2018 12:47 PM CDT CLINICAL NUTRITION Clinical Nutrition Follow-Up Summary Nutrition Assessment of Patient: Malnutrition Assessment: Adequately nourished prior to admission Current Oral Intake: Adequate Estimated Calorie Needs: 1660 (30 kcals/kg per DBW 55.3 kg due to large surgical wound) Estimated Protein Needs: 100-120 (1.5-2.2 g/kg desired wt.) Oral Diet Order: Diabetic 7390-4412 Kcal/day (60 g Carb/meal, 30 g Carb/HS snack ) Oral Supplement: Rickreall Breakfast Essentials No Sugar Added Current EN Order: Nutren 1.5 @ 75ml/hr x's 6 hrs from 9196-1095, 3 ProSource/ day (At goal will provide: [...] for dc today to rehab. Recommendation: Continue 4641-2979 Consistent Carb Diet. Continue Nutren 1.5 @ [...] Throughout Stay Status: Ongoing Emma See, RD #[id number]. * Sofía Centeno - 01/14/2018 11:54 AM CDT I have reviewed the students documentation and agree with it. Tita Centeno MSN/MHA RN CCRN Vehicle Maintenance Supervisor - [facility] * Nani Lynch, - 01/14/2018 11:30 [...] Lynch DO Division of Infectious Diseases Pager [phone] Interval History Afebrile, vitals stable. Feeling "ok" [...] 20,000 Units/ sodium bicarbonate 650 mg(#) PRN (Wet Trimmer from Rx), simethicone Q6H PRN Physical Examination [...] Pertinent radiology reviewed Nani Lynch DO Pager [phone] ID * Nani Mcelroy RN - 01/14/2018 [...] Moist;Red;Gallardo;Yellow 01/14/2018 11:00 AM Surrounding Skin Assessment Excoriated;[place];Edema 01/14/2018 11:00 AM Wound Drainage Amount Large [...] BSN Wound Ostomy Nursing Consult Service Office: [phone] Pager: [phone] After hours Wound/Ostomy team pager : [phone] * Lexus Shirley, OT - 01/14/2018 10:00 AM CDT Formatting of this note may be different from the original. OCCUPATIONAL THERAPY PROGRESS NOTE Patient Name: Beata Kaiser Room/Bed: [id number] Admitting Diagnosis: Pelvic mass [R19.00] Pelvic mass [...] tub and ramps. 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 Activity Tolerance Endurance: 3 Tolerates 25-30 Minutes Exercise w/Multiple Rests Cognition [...] mobility, Dressing, Bathing, Toileting Therapist: SACHA Nath/Tapan [id number] Date: 01/14/2018 * Linus Pisano MD - 01/14/2018 9:49 AM CDT Formatting of this note may be different from the original. Endocrinology Hospital Follow Up Visit Today's Date: 01/14/2018 Admission Date: 12/13/2017 Assessment: 1. DM type 2 with stress hyperglycemia A1c 6.5 , controlled CRUSHER FEEDER regimen: Metformin thousand milligrams twice a day, jardiance 25 mg daily Hypoglycemic episodes on this regimen: None and not checking blood sugars at home Follows up with for diabetes management: Primary care physician at [facility] Diabetic-complications assessment: Retinopathy: None Peripheral neuropathy: Yes on treatment Autonomic neuropathy: None Nephropathy: None Macrovascular complications: None Risk factor assessment: Last lipid profile - None on file On ACEi/ARB: Yes On Statin: yes 2. Hypothyroidism CRUSHER FEEDER 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 daily TSH 2.1 [...] 20,000 Units/ sodium bicarbonate 650 mg(#) PRN (Wet Trimmer from Rx), simethicone Q6H PRN Physical Examination [...] 01:40 PM No results found for: FREET3, [id number], THYBINDGLB Kalie Sibley, Endocrine fellow Pager [phone] * Nani Lynch, DO - 01/13/2018 11:34 [...] Nani Lynch, Division of Infectious Diseases Pager [phone] Interval History Afebrile, vitals stable. ROS - [...] 20,000 Units/ sodium bicarbonate 650 mg(#) PRN (Wet Trimmer from Rx), simethicone Q6H PRN Physical Examination [...] Pertinent radiology reviewed Chari Pedro DO Pager [phone] ID fellow * Adrienne Zarate MD - [...] recs- recommend [facility] [place] -Psych, SPEECH LANGUAGE ASSISTANT psych and psychology consults for coping, depression - appreciate assistance -Endocrine consult for blood sugar management - appreciate recs -ID consult - Ertapenem, micafungin -Nutrition following for optimization -General Surgery consult - colostomy 12/30 Dispo: Plan for DC Wednesday to Rehab Adrienne aZrate MD [id number] * Lexus Shirley, OT - 01/13/2018 10:59 AM CDT Formatting of this note may be different from the original. OCCUPATIONAL THERAPY PROGRESS NOTE Patient Name: Beata Kaiser Room/Bed: [place] [address] Admitting Diagnosis: Pelvic mass [R19.00] Pelvic mass [...] tub and ramps. 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 Equipment Recommendations: [facility] Additional Information: Recommend ongoing assistance for: Transfers, Bed mobility, Dressing, Bathing, Toileting Therapist: SACHA Nath/Tapan [id number] Date: 01/13/2018 * Arnaldo Delacruz MD - [...] Beata Kaiseris a 52 y.o.female[facility] the following issues: S/p [...] a 52 yo F who presented to [facility] on 12/13/17 for scheduled left hemipelvectomy for [...] placement 10/22 persistent wound drainage on 01/10. She continues to demonstrate tolerance for rehab therapies, currently mod assist for transfers (slide board) with [facility] coming . Recommendations: The patient continues to demonstrate improved function and activity tolerance with rehab therapies. Recommend acute inpatient rehab when medically stable. Arnaldo Delacruz MD Subjective Beata Kaiser is a 52 y.o. female. She was evaluated transferring (slide board) to [facility] at mod assist X 1. She feels [...] of bed. Pt supine at OT departure. FRONT DESK SUPERVISOR COGNITIVE EVALUATION SUMMARY PRAGMATICS: BEHAVIOR: AUDITORY COMPREHENSION: [...] 20,000 Units/ sodium bicarbonate 650 mg(#) PRN (Wet Trimmer from Rx), simethicone Q6H PRN Objective Vital [...] Stool Occurrence: 1 Oral Diet Order: Diabetic 7488-3242 Kcal/day (60 g Carb/meal, 30 g Carb/HS [...] with stress hyperglycemia A1c 6.5 , controlled CRUSHER FEEDER regimen: Metformin thousand milligrams twice a day, jardiance 25 mg daily Hypoglycemic episodes on this regimen: None and not checking blood sugars at home Follows up with for diabetes management: Primary care physician at [facility]-complications assessment: Retinopathy: None Peripheral neuropathy: Yes on treatment Autonomic neuropathy: None Nephropathy: None Macrovascular complications: None Risk factor assessment: Last lipid profile - None on file On ACEi/ARB: Yes On Statin: yes 2. Hypothyroidism CRUSHER FEEDER 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 daily TSH 2.1 [...] 20,000 Units/ sodium bicarbonate 650 mg(#) PRN (Wet Trimmer from Rx), simethicone Q6H PRN Physical Examination [...] s/p left hemipelvectomy Neuro: Alert Recent Labs 01/11/189 01/12/18 0217 01/12/18 0742 01/12/18 1224 01/12/18 [...] 01:40 PM No results found for: FREET3, [id number], THYBINDGLB Kalie Sibley, Endocrine fellow Pager [phone] * Lynn Barrera - 01/12/2018 3:40 PM [...] with stress hyperglycemia A1c 6.5 , controlled CRUSHER FEEDER regimen: Metformin thousand milligrams twice a day, jardiance 25 mg daily Hypoglycemic episodes on this regimen: None and not checking blood sugars at home Follows up with for diabetes management: Primary care physician at [facility] Diabetic-complications assessment: Retinopathy: None Peripheral neuropathy: Yes on treatment Autonomic neuropathy: None Nephropathy: None Macrovascular complications: None Risk factor assessment: Last lipid profile - None on file On ACEi/ARB: Yes On Statin: yes 2. Hypothyroidism CRUSHER FEEDER 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 daily TSH 2.1 [...] 20,000 Units/ sodium bicarbonate 650 mg(#) PRN (Wet Trimmer from Rx), simethicone Q6H PRN Physical Examination [...] 01:40 PM No results found for: FREET3, [id number], THYBINDGLB Kalie Sibley, Endocrine fellow Pager [phone] * Chari Moon - 01/12/2018 2:08 PM [...] Status: Alert;Cooperative;Oriented Persons Present: Nursing Staff (Supervising CRUSHER FEEDER) Pain: Patient complains of pain Pain Location: [...] Lynch DO Division of Infectious Diseases Pager [phone] Interval History Afebrile, vitals stable. Pt is [...] 20,000 Units/ sodium bicarbonate 650 mg(#) PRN (Wet Trimmer from Rx), simethicone Q6H PRN Physical Examination [...] Pertinent radiology reviewed Chari Pedro DO Pager [phone] ID fellow * Jasper Betts RN - [...] Used 2 doses of fentanyl IV 50 tmk=559 mcg ~ 10 mg Please call with questions/concerns. Jasper Betts, MSN, RN- Clinical Nurse Coordinator Pain Management [phone] Team pager [phone] * Pancho De Souza, PhD - 01/12/2018 12:29 PM CDT Formatting of this note may be different from the original. Psychology Consult Service ([phone]) Beata Kaiser is a 52 year-old female [...] 52 year old female. She is from [place] and currently lives in [place]. 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 She is and has 3 children. She currently lives with her family in [place], [place]. MSE: 52 year-old female, supine in bed, alert and oriented x4, mood overwhelmed, worried, scared, fair range of affect; tearful at times, speech normal volume , rate and rhythm, TP linear and goal-directed, TC denies SI/HI/AH/VH I good, J good, actively engaged in session Assessment and Intervention: [...] questions or concerns. Pancho De Souza, PhD [phone] Licensed Psychologist Department of Psychiatry and Behavioral [...] consult- appreciate recs- recommend [facility] [place] -Psych, SPEECH LANGUAGE ASSISTANT psych and psychology consults for coping, depression - appreciate assistance -Endocrine consult for blood sugar management - appreciate recs -ID consult - Zosyn, micafungin -Nutrition following for optimization -General Surgery consult - colostomy 12/30 Dispo: Plan for likely DC Wednesday to Rehab pending tolerating wound vac changes Adrienne Zarate MD 1937 * Lexus Shirley, OT - 01/12/2018 9:58 AM CDT Formatting of this note may be different from the original. OCCUPATIONAL THERAPY PROGRESS NOTE Patient Name: Beata Kaiser Room/Bed: [id number]/ Admitting Diagnosis: Pelvic mass [R19.00] Pelvic mass [...] tub and ramps. 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 Equipment Recommendations: [facility] Additional Information: Recommend ongoing assistance for: Transfers, Dressing, Bathing, Toileting Therapist: Lexus Shirley, OTR/L [id number] Date: 01/12/2018 * Adrienne Zarate MD - [...] recs- recommend [facility] [place] -Psych, SPEECH LANGUAGE ASSISTANT psych and psychology consults for coping, depression - appreciate assistance -Endocrine consult for blood sugar management - appreciate recs -ID consult - Zosyn, micafungin -Nutrition following for optimization -General Surgery consult - colostomy 12/30 Dispo: Plan for possible DC Wednesday to Rehab pending tolerating wound vac changes Adrienne Zarate MD [id number] * Hugh Quintana MD - 01/11/2018 9:31 [...] between 8am and 3pm on weekends at [phone]. Otherwise, page the vice president marketing & development online trader. Subjective: Beata Kaiser is seen for routine [...] Units / sodium bicarbonate 650 mg(#) PRN (Wet Trimmer from Rx), simethicone Q6H PRN 80 mg [...] all extremities spontaneously Hugh Quintana MD * Syed Nani R, DO - 01/11/2018 3:43 PM CDT Formatting [...] 20,000 Units/ sodium bicarbonate 650 mg(#) PRN (Wet Trimmer from Rx), simethicone Q6H PRN Physical Examination Vital Signs: Last Vital Signs: 24 Hour Range BP: 123/69 (01/11 1359) Temp: 36.4 C (97.6 F) (01/11 1359) Pulse: 98 (01/11 135) Respirations: 18 PER MINUTE (01/11 1359) SpO2: 96 % (01/11 135) O2 Delivery: None (Room Air) (01/11 1359) [...] g/kg desired wt.) Oral Diet Order: Diabetic 1454-1341 Kcal/day (60 g Carb/meal, 30 g Carb/HS snack ) Oral Supplement: Rickreall Breakfast Essentials No Sugar Added Intake (calories) Daily Average : 1332 kilocalories (80% yesterday) Intake (protein) Daily Average : 85 grams (70-85% needs yesterday.) Current EN Order: Nutren 1.5 @ 75ml/hr x's 12 hrs (1612-1388) + 2 Liquid ProSource/day (At goal provides: [...] was given steroid during surgery. Recommendation: Continue 4963-7274 Consistent Carb Diet. Continue SF CIB with [...] Throughout Stay Status: Ongoing Emma See, RD #[id number]. * Lexus Shirley, OT - 01/11/2018 11:52 AM CDT Formatting of this note may be different from the original. OCCUPATIONAL THERAPY PROGRESS NOTE Patient Name: Beata Kaiser Room/Bed: [id number] Admitting Diagnosis: Pelvic mass [R19.00] Pelvic mass [...] tub and ramps. 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 Equipment Recommendations: [facility] Additional Information: Recommend ongoing assistance for: Transfers, Dressing, Bathing, Toileting Therapist: SACHA Nath/Tapan [id number] Date: 01/11/2018 * Linus Pisano MD - 01/11/2018 11:51 AM CDT Formatting of this note may be different from the original. Endocrinology Hospital Follow Up Visit Today's Date: 01/11/2018 Admission Date: 12/13/2017 Assessment: 1. DM type 2 with stress hyperglycemia A1c 6.5 , controlled CRUSHER FEEDER regimen: Metformin thousand milligrams twice a day, jardiance 25 mg daily Hypoglycemic episodes on this regimen: None and not checking blood sugars at home Follows up with for diabetes management: Primary care physician at [facility] Diabetic-complications assessment: Retinopathy: None Peripheral neuropathy: Yes on treatment Autonomic neuropathy: None Nephropathy: None Macrovascular complications: None Risk factor assessment: Last lipid profile - None on file On ACEi/ARB: Yes On Statin: yes 2. Hypothyroidism CRUSHER FEEDER 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 daily TSH 2.1 [...] 20,000 Units/ sodium bicarbonate 650 mg(#) PRN (Wet Trimmer from Rx), simethicone Q6H PRN Physical Examination [...] 01:40 PM No results found for: FREET3, [id number], THYBINDGLB Kalie Sibley, Endocrine fellow Pager [phone] * Arnaldo Delacruz MD - 01/11/2018 10:50 [...] Beata Kaiseris a 52 y.o.femalead[facility] the following issues: S/p [...] a 52 yo F who presented to [facility] on 12/13/17 for scheduled left hemipelvectomy for [...] able to clear buttocks better this day FRONT DESK SUPERVISOR COGNITIVE EVALUATION SUMMARY PRAGMATICS: BEHAVIOR: AUDITORY COMPREHENSION: [...] Units/ sodium bicarbonate 650 mg(#) PRN ( Wet Trimmer from Rx), simethicone Q6H PRN Objective Vital [...] Stool Occurrence: 1 Oral Diet Order: Diabetic 9830-2777 Kcal/day (60 g Carb/meal, 30 g Carb/HS [...] Ext: Lt hemipelvectomy Psych: Pleasent mood * Nani Lynch DO - 01/10/2018 4:07 PM CDT Formatting [...] Units/ sodium bicarbonate 650 mg(#) PRN ( Wet Trimmer from Rx), simethicone Q6H PRN Physical Examination [...] with stress hyperglycemia A1c 6.5 , controlled CRUSHER FEEDER regimen: Metformin thousand milligrams twice a day, jardiance 25 mg daily Hypoglycemic episodes on this regimen: None and not checking blood sugars at home Follows up with for diabetes management: Primary care physician at [facility]-complications assessment: Retinopathy: None Peripheral neuropathy: Yes on treatment Autonomic neuropathy: None Nephropathy: None Macrovascular complications: None Risk factor assessment: Last lipid profile - None on file On ACEi/ARB: Yes On Statin: yes 2. Hypothyroidism CRUSHER FEEDER 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 daily TSH 2.1 [...] Units/ sodium bicarbonate 650 mg(#) PRN ( Wet Trimmer from Rx), simethicone Q6H PRN Physical Examination [...] 01:40 PM No results found for: FREET3, [id number], THYBINDGLB Kalie Sibley, Endocrine fellow Pager [phone] * Cassandra Villatoro - 01/10/2018 2:09 PM [...] up tomorrow post-operatively. Therapist: Lexus Shirley OTR/L [id number] Date: 01/10/2018 * Adrienne Zarate MD - [...] recs- recommend [facility] [place] -Psych, SPEECH LANGUAGE ASSISTANT psych and psychology consults for coping, depression - appreciate assistance -Endocrine consult for blood sugar management - appreciate recs -ID consult - Zosyn, micafungin -Nutrition following for optimization -General Surgery consult - colostomy 12/30 -Sodium normalizing- discontinue fluid restriction Dispo: Continued drainage, plan for OR today for wound exploration and wound vac placement Adrienne Zarate MD [id number] * Earl Shetty MD - 01/09/2018 1:54 [...] with stress hyperglycemia A1c 6.5 , controlled CRUSHER FEEDER regimen: Metformin thousand milligrams twice a day, jardiance 25 mg daily Hypoglycemic episodes on this regimen: None and not checking blood sugars at home Follows up with for diabetes management: Primary care physician at [facility] Diabetic-complications assessment: Retinopathy: None Peripheral neuropathy: Yes on treatment Autonomic neuropathy: None Nephropathy: None Macrovascular complications: None Risk factor assessment: Last lipid profile - None on file On ACEi/ARB: Yes On Statin: yes 2. Hypothyroidism CRUSHER FEEDER 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 daily TSH 2.1 [...] Units/ sodium bicarbonate 650 mg(#) PRN ( Wet Trimmer from Rx), simethicone Q6H PRN Physical Examination Vital Signs: Last Vital Signs: 24 Hour Range BP: 118/54 (01/09 1014) Temp: 36.8 C (98.3 F) (01/09 1014) Pulse: 106 (01/09 1014) Respirations: 18 PER MINUTE (01/09 1014) SpO2: 96 % (01/09 1014) O2 Delivery: None (Room Air) (01/10 644) BP: (118-141)/(54-79) Temp: [36.8 C (98.3 F)-37.3 C (99.2 F)] Pulse: [97-123] Respirations: [16 PER MINUTE-18 PER MINUTE] SpO2: [94 %-97 %] O2 Delivery: None (Room Air) General appearance: alert, oriented, NAD, OG + CVS; RRR Resp: breathing comfortably Abd; Colostomy + Ext: s/p left hemipelvectomy Neuro: Alert Recent Labs 01/07/18203401/08/1831601/08/18 0749 01/08/18 1247 01/08/18 1820 01/08/18 21001/09/18 [...] 8.1* ALBUMIN 2.2* -- -- Recent Labs 01/07/1830101/08/1832101/09/18316 WBC 8.2 9.2 9.0 HGB 8.1* 8.5* [...] 09:45 AM No results found for: FREET3, [id number], THYBINDGLB Pertinent radiology images viewed. Deonna Diaz [...] Diabetic diet, nocturnal tube feeds. NPO at [place] for OR tomorrow -Posted for OR 01/10 [...] consult- appreciate recs- recommend [facility] [place] -Psych, SPEECH LANGUAGE ASSISTANT psych and psychology consults for coping, depression - appreciate assistance -Endocrine consult for blood sugar management - appreciate recs -ID consult - Zosyn, micafungin -Nutrition following for optimization -General Surgery consult - colostomy 12/30 -Sodium normalizing- discontinue fluid restriction Dispo: Continued drainage, plan for OR 01/10 for wound exploration and wound vac placement Adrienne Zarate MD [id number] * Tamiko Luther MD - 01/09/2018 7:35 [...] she wishes to proceed. * Herminia Gant, DIRECTOR OF [employer] [facility] - 01/08/2018 2:47 PM CDT OCCUPATIONAL THERAPY [...] tub and ramps. 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 Equipment Recommendations: [facility] Therapist: HUYEN Schmidt Date: 01/08/2018 * Adrienne [...] instead of SNF, would prefer [facility] -Psych, SPEECH LANGUAGE ASSISTANT psych and psychology consults for coping, depression - appreciate assistance -Endocrine consult for blood sugar management - appreciate recs -ID consult - Zosyn, micafungin -Nutrition following for optimization -General Surgery consult - colostomy 12/30 Dispo: Continue inpatient care, if drainage persists over the weekend then plan for exploration of wound and wound vac placement in OR on 01/11 Adrienne Zarate MD 4801 * Annette Ling RN - 01/07/2018 5:41 PM CDT I have reviewed the notes, assessment, and/or procedures performed by Denise Shannon and concur with her/his documentation unless otherwise [...] will round on Wednesday. Please call ID online trader in the interim if questions arise. Complexity [...] Units/ sodium bicarbonate 650 mg(#) PRN ( Wet Trimmer from Rx), simethicone Q6H PRN Physical Examination [...] gabapentin 800 mg PO q 8 hours ([id number]) to increase daily serum concentration and more [...] MSN, RN-BC Clinical Nurse Coordinator Pain Management [phone] Team pager [phone] * Kalie Sibley MBBS - 01/07/2018 2:01 PM CDT Formatting of this note may be different from the original. [facility] Follow Up Visit Today's Date: 01/07/2018 Admission Date: 12/13/2017 Assessment: 1. DM type 2 with stress hyperglycemia A1c 6.5 , controlled CRUSHER FEEDER regimen: Metformin thousand milligrams twice a day, jardiance 25 mg daily Hypoglycemic episodes on this regimen: None and not checking blood sugars at home Follows up with for diabetes management: Primary care physician at [facility] Diabetic-complications assessment: Retinopathy: None Peripheral neuropathy: Yes on treatment Autonomic neuropathy: None Nephropathy: None Macrovascular complications: None Risk factor assessment: Last lipid profile - None on file On ACEi/ARB: Yes On Statin: yes 2. Hypothyroidism CRUSHER FEEDER 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 daily TSH 2.1 [...] Units/ sodium bicarbonate 650 mg(#) PRN ( Wet Trimmer from Rx), simethicone Q6H PRN Physical Examination [...] 09:45 AM No results found for: FREET3, [id number], THYBINDGLB Pertinent radiology images viewed. RAMIREZ Soto [...] instead of SNF, would prefer [facility], SPEECH LANGUAGE ASSISTANT psych and psychology consults for coping, depression - appreciate assistance -Endocrine consult for blood sugar management - appreciate recs -ID consult - Zosyn, micafungin -Nutrition following for optimization -General Surgery consult - colostomy 12/30 Dispo: Continue inpatient care, if drainage persists over the weekend then plan for exploration of wound and wound vac placement in OR on 01/11 Adrienne Zarate MD [phone] * Lexus Shirley, OT - 01/07/2018 11:11 AM CDT Formatting of this note may be different from the original. OCCUPATIONAL THERAPY PROGRESS NOTE Patient Name: Beata Kaiser Room/Bed: [id number] Admitting Diagnosis: Pelvic mass [R19.00] Pelvic mass [...] tub and ramps. 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 Equipment Recommendations: [facility] [place] Additional Information: Recommend ongoing assistance for: Transfers, Bed mobility, Dressing, Bathing, Toileting Therapist: Lexus Shirley OTR/[place] [id number] Date: 01/07/2018 * Jasper Betts RN - 01/07/2018 9:18 AM CDT Inpatient Pain Management Nurses [facility] Nursing [facility] - Follow -Up Primary [...] 20 mg ~ 20 mg Jasper Betts, FLAKITA, RN-BC Clinical Nurse Coordinator Pain Management [phone] Team pager [phone] * Fareed Holcomb MD - 01/07/2018 8:10 [...] sign off at this time. Please page [phone] if you have any questions regarding the [...] Sensory intact. Fareed Holcomb MD Personal Pager: [phone] Team Pager: # [phone] * Indy Isabel MD - 01/06/2018 6:43 [...] 20,000 Units/ sodium bicarbonate 650 mg(#) PRN (Wet Trimmer from Rx), simethicone Q6H PRN Physical Examination [...] hospital : 1965 AGE: 52 y.o. 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 Description of condition/injury, including services:Amputations Size: 1X [...] Follow-up scheduled: na PLAN: Order completed Mark MezaTaina 01/06/2018 * Chari Moon - 01/06/2018 2:20 [...] Status: Alert;Cooperative Persons Present: Sister;Nursing Staff (Supervising CRUSHER FEEDER) Pain: Patient complains of pain Pain Location: [...] non-insulin dependent diabetes mellitus who presented to [facility] on 12/13/17 for scheduled left hemipelvectomy for [...] further assistance , the service should page [phone] (24 hours a day/7 days a week) [...] capsule 400 mg 400 mg Oral TID (812-17) gabapentin (NEURONTIN) capsule 800 mg 800 mg [...] 20,000 Units/ sodium bicarbonate 650 mg(#) PRN (Wet Trimmer from Rx), simethicone Q6H PRN Review of Systems: gas and bloating in abdomen Objective: Vital Signs: Last Filed Vital Signs: 24 Hour Range BP: 106/63 (01/06 0953) Temp: 36.6 C (97.9 F) (01/06 [...] Pertinent radiology reviewed. Hugh Salinas MD Pager [phone] * Emma See RD - 01/06/2018 1:19 PM CDT CLINICAL NUTRITION Clinical Nutrition Follow-Up Summary Nutrition Assessment of Patient: Malnutrition Assessment: Adequately nourished prior to admission Current Oral Intake: Marginally Adequate Estimated Calorie Needs: 1660 (30 kcals/kg per DBW 55.3 kg due to large surgical wound) Estimated Protein Needs: 100-120 (1.5-2.2 g/kg desired wt.) Oral Diet Order: Diabetic 1458-0553 Kcal/day (60 g Carb/meal, 30 g Carb/HS snack ) Oral Supplement: Rickreall Breakfast Essentials No Sugar Added, Protein Powder, TID EN Intake (calories) Daily Average : 1407 kilocalories (85% via EN only over past 3 d avg.(nocturnal only since 01/04) EN Intake (protein) Daily Average : 72 grams (60-72% via EN only over past 3 day avg.) Current EN Order: Nutren 1.5 @ 75ml/hr x's 12 hrs (8446-9717) + 2 Liquid ProSource/day (At goal provides: [...] proceeded with colostomy placement 12/30. TPN started 2/2 concern for optimal nutriton s/p surgery. She received ~ 3 bags total. At this time, pt has order for nocturnal Nutren 1.5 with diabetic diet during day. Her tube feeds had to be turned down to 50ml/hr last night 2/2 pt feeling distended and her abdomen is noted as tender and distended, firm per command post craftsman. CT completed this morning with no note [...] to floor RD on 01/03. Recommendation: Continue [id number] Consistent Carb Diet. Please encourage SUGER FREE [...] Time Frame: Throughout Stay Emma See, KAYA #[phone]. * Kalie Sibley MBBS - 01/06/2018 1:12 PM CDT Formatting of this note may be different from the original. Endocrinology Hospital Follow Up Visit Today's Date: 01/06/2018 Admission Date: 12/13/2017 Assessment: 1. DM type 2 with stress hyperglycemia A1c 6.5 , controlled CRUSHER FEEDER regimen: Metformin thousand milligrams twice a day, jardiance 25 mg daily Hypoglycemic episodes on this regimen: None and not checking blood sugars at home Follows up with for diabetes management: Primary care physician at [facility] Diabetic-complications assessment: Retinopathy: None Peripheral neuropathy: Yes on treatment Autonomic neuropathy: None Nephropathy: None Macrovascular complications: None Risk factor assessment: Last lipid profile - None on file On ACEi/ARB: Yes On Statin: yes 2. Hypothyroidism CRUSHER FEEDER 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 daily TSH 2.1 [...] 20,000 Units/ sodium bicarbonate 650 mg(#) PRN (Wet Trimmer from Rx), simethicone Q6H PRN Physical Examination [...] s/p left hemipelvectomy Neuro: Alert Recent Labs 01/04/18205701/05/18 0244 01/05/18 0752 01/05/18 1222 01/05/18 1733 [...] 09:45 AM No results found for: FREET3, [id number], THYBINDGLB Pertinent radiology images viewed. RAMIREZ Soto [...] RE-ASSESSMENT NOTE Patient Name: Beata Kaiser Room/Bed: [place] [address] Admitting Diagnosis: Pelvic mass [R19.00] Pelvic mass [...] tub and ramps. 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 Equipment Recommendations: [facility] Additional Information: Recommend ongoing assistance for: Dressing, Bathing, Toileting, Transfers Therapist: Lexus Shirley, LELANDR/[place] [id number] Date: 01/06/2018 * Adrienne Zarate MD - [...] instead of SNF, would prefer [facility], SPEECH LANGUAGE ASSISTANT psych and psychology consults for coping, depression - appreciate assistance -Endocrine consult for blood sugar management - appreciate recs -ID consult - Zosyn, micafungin -Nutrition following for optimization -General Surgery consult - colostomy 12/30 Dispo: Continue inpatient care Adrienne Zarate MD [phone] * Jami Edwards, RN - 01/05/2018 10:30 [...] Garsia RN, BSN Wound /Ostomy Team Pager [phone] After Hours Wound/Ostomy team pager [phone] * Kalie Sibley MBBS - 01/05/2018 3:01 PM CDT Formatting of this note may be different from the original. Endocrinology Hospital Follow Up Visit Today's Date: 01/05/2018 Admission Date: 12/13/2017 Assessment: 1. DM type 2 with stress hyperglycemia A1c 6.5 , controlled CRUSHER FEEDER regimen: Metformin thousand milligrams twice a day, jardiance 25 mg daily Hypoglycemic episodes on this regimen: None and not checking blood sugars at home Follows up with for diabetes management: Primary care physician at [facility]-complications assessment: Retinopathy: None Peripheral neuropathy: Yes on treatment Autonomic neuropathy: None Nephropathy: None Macrovascular complications: None Risk factor assessment: Last lipid profile - None on file On ACEi/ARB: Yes On Statin: yes 2. Hypothyroidism CRUSHER FEEDER 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 daily TSH 2.1 [...] 20,000 Units/ sodium bicarbonate 650 mg(#) PRN (Wet Trimmer from Rx), simethicone Q6H PRN Physical Examination [...] 09:45 AM No results found for: FREET3, [id number], THYBINDGLB Pertinent radiology images viewed. RAMIREZ Soto [...] Cognitive Status: Alert;Cooperative;Oriented Persons Present: Sister (Supervising CRUSHER FEEDER, Wound team staff at beginning of session) [...] non-insulin dependent diabetes mellitus who presented to [facility] on 12/13/17 for scheduled left hemipelvectomy for [...] further assistance , the service should page [phone] (24 hours a day/7 days a week) [...] 20,000 Units/ sodium bicarbonate 650 mg(#) PRN (Wet Trimmer from Rx) Review of Systems: A 14 [...] 0304) POC Glucose (Download): (!) 265 (01/05/18 9064) Radiology and other Diagnostics Review: Pertinent radiology reviewed. Hugh Salinas MD Pager [phone] * Herminia Gant OTA - 01/05/2018 11:14 [...] instead of SNF, would prefer [facility], SPEECH LANGUAGE ASSISTANT psych and psychology consults for coping, depression - appreciate assistance -Endocrine consult for blood sugar management - appreciate recs -ID consult - Zosyn, micafungin -Nutrition following for optimization - TPN (continue for now), tube feeds switched to nocturnal. - Prealbumin 18 and albumin 2.2 -General Surgery consult - colostomy 12/30 Dispo: Continue inpatient care Rebekah 2304 * Jasper Betts RN - 01/05/2018 9:45 AM CDT Inpatient Pain Management Nurses - [facility] Nursing [facility] - Follow -Up Discussed patient with Nallely GRACE. Primary team is responsible for entering orders. Suggested Plan for the Day: Continue current pain regimen. Of note gabapentin was changed from 600 mg q6 hours to 800 mg q 12 hours. Suggestions was every 6 hours [id number]. Will continue with new dose today and [...] MSN, RN- Clinical Nurse Coordinator Pain Management [phone] Team pager [phone] * Indy Isabel MD - 01/05/2018 7:01 [...] 20,000 Units/ sodium bicarbonate 650 mg(#) PRN (Wet Trimmer from Rx) Physical Examination Vital Signs: Last [...] 20,000 Units/ sodium bicarbonate 650 mg(#) PRN (Wet Trimmer from Rx) Physical Examination Vital Signs: Last [...] with stress hyperglycemia A1c 6.5 , controlled CRUSHER FEEDER regimen: Metformin thousand milligrams twice a day, jardiance 25 mg daily Hypoglycemic episodes on this regimen: None and not checking blood sugars at home Follows up with for diabetes management: Primary care physician at [facility] Diabetic-complications assessment: Retinopathy: None Peripheral neuropathy: Yes on treatment Autonomic neuropathy: None Nephropathy: None Macrovascular complications: None Risk factor assessment: Last lipid profile - None on file On ACEi/ARB: Yes On Statin: yes 2. Hypothyroidism CRUSHER FEEDER 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 daily TSH 2.1 [...] 20,000 Units/ sodium bicarbonate 650 mg(#) PRN (Wet Trimmer from Rx) Physical Examination Vital Signs: Last [...] 0200 01/03/18 0751 01/03/18 1444 01/03/18 1653 01/03/18 2021 01/04/18 0239 01/04/18 0750 GLUPOC 302* 236* 119* [...] 09:45 AM No results found for: FREET3, A1QALYNPJ, THYBINDGLB Pertinent radiology images viewed. Impression: RAMIREZ [...] Agree With My Assessment? Wound Base Assessment Moist;[place]ardo;Yellow Surrounding Skin Assessment Intact Wound Site Closure None Wound Drainage Amount None Wound Drainage Description Serosanguineous Wound Dressing Status Intact Wound Dressing and / or Treatment Aquacel AG Number of days: 15 Wounds (NOT for Pressure Injuries) 12/23/17 1345 Left Labia (Active) 12/23/17 1345 Labia Wound Orientation: Left Wound Type: Wound Type:: Wound Description (Comments): Wound Base Assessment Moist;Pale;[place];Yellow Surrounding Skin Assessment Edema Wound Site Closure [...] Right (Active) 12/30/17 1209 Right Stoma Assessment [place], round, protruding Drainage Description Ag[place]ardo;Brown Peristomal Skin Assessment Dry;Intact Dressing Status Intact/ [...] BSN Wound Ostomy Nursing Consult Service Office: [phone] Pager: [phone] After hours Wound/Ostomy team pager : [phone] * Arnaldo Delacruz MD - 01/04/2018 11:45 [...] (HCC) Chronic pain Beata Lema a 52 y.[facility] the following [facility]: S/p [...] a 52 yo F who presented to [facility] on 12/13/17 for scheduled left hemipelvectomy for [...] a significant amount of fluid. RN notified. FRONT DESK SUPERVISOR COGNITIVE EVALUATION SUMMARY PRAGMATICS: BEHAVIOR: AUDITORY COMPREHENSION: [...] 20,000 Units/ sodium bicarbonate 650 mg(#) PRN (Wet Trimmer from Rx) Objective Vital Signs: Last Filed [...] Abd: Soft, non-distended Ext: Lt hemipelvectomy * Colton Welch - 01/04/2018 10:58 AM CDT Formatting of [...] instead of SNF, would prefer [facility], SPEECH LANGUAGE ASSISTANT psych and psychology consults for coping, depression - appreciate assistance -Endocrine consult for blood sugar management - appreciate recs -ID consult - Zosyn, micafungin -Nutrition following for optimization - TPN (continue for now), tube feeds switched to nocturnal. - Prealbumin and albumin ordered. -General Surgery consult - colostomy 12/30 Dispo: Continue inpatient care César Davis MD [phone] * Chari Moon - 01/04/2018 10:32 AM [...] Status: Alert;Oriented;Cooperative Persons Present: Sister;Nursing Staff (Supervising CRUSHER FEEDER) Pain: Patient complains of pain;During activity Pain [...] issues. Indy Isabel MD Date: 01/03/2018 Pager: [phone] Interval History Afebrile, stable vitals. ROS - [...] 20,000 Units/ sodium bicarbonate 650 mg(#) PRN (Wet Trimmer from Rx) Physical Examination Vital Signs: Last [...] Microbiology data reviewed. Chari Pedro DO Pager [phone] ID fellow * Chari Moon - 01/03/2018 [...] PROGRESS NOTE Patient Name: Beata Kaiser Room/Bed: [place] [address] Admitting Diagnosis: Pelvic mass [R19.00] Pelvic mass [...] of house, Stairs, Toileting Therapist: JOHNATHON Olivarez [id number] Date: 01/03/2018 * Kalie Sibley MBBS - 01/03/2018 12:05 PM CDT Formatting of this note may be different from the original. Endocrinology Hospital Follow Up Visit Today's Date: 01/03/2018 Admission Date: 12/13/2017 Assessment: 1. DM type 2 with stress hyperglycemia A1c 6.5 , controlled CRUSHER FEEDER regimen: Metformin thousand milligrams twice a day, jardiance 25 mg daily Hypoglycemic episodes on this regimen: None and not checking blood sugars at home Follows up with for diabetes management: Primary care physician at [facility] Diabetic-complications assessment: Retinopathy: None Peripheral neuropathy: Yes on treatment Autonomic neuropathy: None Nephropathy: None Macrovascular complications: None Risk factor assessment: Last lipid profile - None on file On ACEi/ARB: Yes On Statin: yes 2. Hypothyroidism CRUSHER FEEDER 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 daily TSH 2.1 [...] 20,000 Units/ sodium bicarbonate 650 mg(#) PRN (Wet Trimmer from Rx) Physical Examination Vital Signs: Last [...] 09:45 AM No results found for: FREET3, A1QAEHKRC, THYBINDGLB Pertinent radiology images viewed. Impression: RAMIREZ [...] CDT Inpatient Pain Management Nurses - Clinical [facility] Nursing [facility] - Follow -Up Primary team is responsible for entering orders. Suggested Plan for the Day: Change acetaminophen 1000 mg PO q 8 hours, [id number] - Patient has been at ~ 4000 mg daily for many days Change gabapentin 800 mg PO q 12 hours, 4169-0693 - improve medication that patient indicates helps with phantom limb pain and facilitate the larger dose being given just before bedtime. Gabapentin 600 mg PO q 12 hours, [id number] - maintain a 400 mg/day dose increase [...] MSN, RN- Clinical Nurse Coordinator Pain Management [phone] Team pager [phone] * Hugh Salinas MD - 01/03/2018 10:37 [...] non-insulin dependent diabetes mellitus who presented to [facility] on 12/13/17 for scheduled left hemipelvectomy for [...] 20,000 Units/ sodium bicarbonate 650 mg(#) PRN (Wet Trimmer from Rx) Review of Systems: A 14 [...] 0510) POC Glucose (Download): (!) 119 (01/03/18 0811) Radiology and other Diagnostics Review: Pertinent radiology reviewed. Hugh Salinas MD Pager [phone] * Adrienne Carlos, RD - 01/03/2018 8:59 [...] 12/14. Pt reported she was eating well CRUSHER FEEDER and has had a stable weight. Pt's weight wentdown 28# or 12% s/p removal of her leg, 203# (12/18). Latest weight shows a 14# increase in 9 days, likely due to fluid. Pt had continued to havedecreased PO intake, with average PO intake of 600 kcals, 33 gm per day per calorie count. Yet Per fellow RD, all of Pt's intake of Rickreall shakes may not be included in the [...] encourage protein shakes between meals, made with Rickreall Breakfast Essentials (NO SUGAR ADDED), skim milk, [...] unit RD for further nutrition care. Adrienne Carlos, KAYA, LD, [facility] *[phone] * Feli Winkler MD - 01/03/2018 [...] -Colorectal surgery will sign off, please page #[phone] with further questions -Follow-up with Dr. Mccollum [...] (01/03 0500) Temp: 37.1 C (98.8 F) (01/030) Pulse: 101 (01/030) Respirations: 18 PER MINUTE (01/03 500) SpO2: [...] Net 308 ml Feli Winkler MD Pager [phone] * César Davis MD - 01/03/2018 6:22 [...] instead of SNF, would prefer [facility], SPEECH LANGUAGE ASSISTANT psych and psychology consults for coping, depression - appreciate assistance -Endocrine consult for blood sugar management - appreciate recs -ID consult - Zosyn, micafungin -Nutrition following for optimization - TPN (continue for now), tube feeds -General Surgery consult - colostomy 12/30 Dispo: Continue inpatient care César Davis MD [id number] * QueemelyHarry barrow - 01/02/2018 3:37 PM CDT PHYSICAL THERAPY [...] with stress hyperglycemia A1c 6.5 , controlled CRUSHER FEEDER regimen: Metformin thousand milligrams twice a day, jardiance 25 mg daily Hypoglycemic episodes on this regimen: None and not checking blood sugars at home Follows up with for diabetes management: Primary care physician at [facility] Diabetic-complications assessment: Retinopathy: None Peripheral neuropathy: Yes on treatment Autonomic neuropathy: None Nephropathy: None Macrovascular complications: None Risk factor assessment: Last lipid profile - None on file On ACEi/ARB: Yes On Statin: yes 2. Hypothyroidism CRUSHER FEEDER 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 daily TSH 2.1 [...] Adult Parenteral Nutrition (TPN) 65 mL/hr at 04/14/18 2044 PRN and Respiratory Meds:alum/mag hydroxide/simeth Q6H PRN, calcium carbonate Q4H PRN, diazePAM Q6H PRN, diphenhydrAMINE Q6H PRN OR [DISCONTINUED] diphenhydrAMINE Q6H PRN, fentaNYL citrate PF Q1H PRN, HYDROmorphone (DILAUDID) injection Q4H PRN, naloxone PRN, ondansetron (ZOFRAN) IV Q6H PRN, oxyCODONE Q3H PRN, pancrelipase 20,000 Units/ sodium bicarbonate 650 mg(#) PRN (Wet Trimmer from Rx) Physical Examination Vital Signs: Last [...] 09:45 AM No results found for: FREET3, V5YPANSPT, THYBINDGLB Pertinent radiology images viewed. Impression: Marco Payne MD 01/02/2018 Endocrine * Amanda Juares - 01/02/2018 12:30 PM CDT Pt's dressing was saturated through at 1110, bed was wet. Dressing and bedding both changed. When RN rounded on patient not even an hour later, dressing was completely saturated again. Concern for skin integrity. was paged, informed and aware of findings. Per they are expecting the drainage to continue. [...] PROGRESS NOTE Patient Name: Beata Kaiser Room/Bed: NS2953/01 Admitting Diagnosis: Pelvic mass [R19.00] Pelvic mass [...] Pt requires extra time and cues for erhw-mu-lthc process. Limited by pain and weakness. Assist [...] Therapist: Christin Helms OT Date: 01/02/2018 * Barnnon See MD - 01/02/2018 11:03 AM CDT [...] non-insulin dependent diabetes mellitus who presented to [facility] on 12/13/17 for scheduled left hemipelvectomy for [...] Net 341 ml Fareed Holcomb MD Pager [phone] Associated attestation - Manny Barrios MD - [...] instead of SNF, would prefer [facility], SPEECH LANGUAGE ASSISTANT psych and psychology consults for coping, depression - appreciate assistance -Endocrine consult for blood sugar management - appreciate recs -ID consult - Zosyn, micafungin -Nutrition following for optimization - TPN (continue for now), tube feeds -General Surgery consult - colostomy 12/30 Dispo: Continue inpatient care César Davis MD [phone] * Amanda Juares - 01/01/2018 4:29 PM CDT BS at 1330 was 386, recheck BS at 1610 was 354. MD called, recommended calling endocrinology. Spoke with patient companion, per today's progress note insulin changes ordered [...] Net 949 ml Feli Winkler MD Pager [phone] Associated attestation - Manny Barrios MD - [...] with stress hyperglycemia A1c 6.5 , controlled CRUSHER FEEDER regimen: Metformin thousand milligrams twice a day, jardiance 25 mg daily Hypoglycemic episodes on this regimen: None and not checking blood sugars at home Follows up with for diabetes management: Primary care physician at [facility] Diabetic-complications assessment: Retinopathy: None Peripheral neuropathy: Yes on treatment Autonomic neuropathy: None Nephropathy: None Macrovascular complications: None Risk factor assessment: Last lipid profile - None on file On ACEi/ARB: Yes On Statin: yes 2. Hypothyroidism CRUSHER FEEDER 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 daily TSH 2.1 [...] 20,000 Units/ sodium bicarbonate 650 mg(#) PRN (Wet Trimmer from Rx) Physical Examination Vital Signs: Last [...] 04:38 AM No results found for: FREET3, Q0HSPPENT, THYBINDGLB Pertinent radiology images viewed. Impression: Marco [...] instead of SNF, would prefer [facility], SPEECH LANGUAGE ASSISTANT psych and psychology consults for coping, depression - appreciate assistance -Endocrine consult for blood sugar management - appreciate recs -ID consult - Zosyn, micafungin -Nutrition following for optimization - TPN, tube feeds -General Surgery consult - colostomy 12/30 Dispo: Continue inpatient care César Davis MD [phone] * Julia Marcelino MD - 12/31/2017 10:21 [...] non-insulin dependent diabetes mellitus who presented to [facility] on 12/13/17 for scheduled left hemipelvectomy for [...] 20,000 Units/ sodium bicarbonate 650 mg(#) PRN (Wet Trimmer from Rx) Objective: Vital Signs: Last Filed [...] 20,000 Units/ sodium bicarbonate 650 mg(#) PRN (Wet Trimmer from Rx) Physical Examination Vital Signs: Last [...] Microbiology data reviewed. Chari Pedro DO Pager [phone] ID fellow * Kerline Kruger RN - [...] on the patient. 1703: Paged Med consults #[phone] Spoke to team about EKG results and [...] Assessment? Except 12/30/2017 2:45 PM Stoma Assessment [place] 12/31/2017 12:00 PM Drainage Description Sanguineous;Brown 12/30/2017 [...] BSN Wound Ostomy Nursing Consult Service Office: [phone] Pager: [phone] After hours Wound/Ostomy team pager : [phone] * Adair Colin MD - 12/31/2017 12:05 [...] between 8am and 3pm on weekends at [phone]. Otherwise, page the vice president marketing & development online trader. Subjective: Beata Kaiser is seen for routine [...] Vital Signs: 24 Hour Range BP: 124/69 (12/310) Temp: 36.8 C (98.3 F) (12/31 1029) Pulse: 100 (12/31 1029) Respirations: 18 PER MINUTE (12/31 1029) SpO2: 94 % (04/13 1030) O2 Delivery: None (Room Air) (12/31 [...] 20,000 Units/ sodium bicarbonate 650 mg(#) PRN (Wet Trimmer from Rx) Mental Status Exam: General/Constitutional: cooperative, [...] and between 8am and 3pm on weekends [phone]. Otherwise, page the vice president marketing & development online trader. Staff name: Hugh Quintana MD Date: 01/01/2018 [...] Net 2755 ml Evelyn Barrow DO Pager [phone] * Herminia Gant OTA - 12/31/2017 11:30 AM CDT OCCUPATIONAL THERAPY NO TREATMENT NOTE The patient was not seen due to: Pt refused therapy this am due to uncontrolled pain from OR yesterday. Attempted to encourage participation but continued to decline. RN notified. Attempted to see patient 1 time(s) Therapist: HUYEN Schmidt Date: 12/31/2017 * Jasper Betts RN - 12/31/2017 9:47 AM CDT Inpatient Pain Management Nurses - [facility] - Follow -Up Discussed patient with Dr. Mina Davis (primary team). Primary team is responsible for entering orders. Suggested Plan for the Day: Lidocaine patch x2 cut to fit placed beside surgical incision and around ostomy bag. Discontinue fentanyl CARETAKER RESORT - patient stating that she is not [...] Regimen, OME: Used 580 mcg in fentanyl CARETAKER RESORT ~ 58 mg Used 1 dose of morphine IV @ 2 mg ~ 6 mg Used 3 doses of IV fentanyl @ 50 rpe=159 mcg ~ 15 mg Used 1 dose [...] 25 mg at 12/19/17 2139 fentaNYL (SUBLIMAZE) CARETAKER RESORT 550 mcg/ NS 55 mL infusion syr (std conc)( premade), , Intravenous, CARETAKER RESORT, César Davis MD fentaNYL citrate PF (SUBLIMAZE) [...] Pedro, DO, Last Rate: 100 mL/hr at 09/06 1928, 100 mg at 12/30/17 1928 naloxone (NARCAN) [...] 1 capsule, 1 capsule, Feeding Tube, PRN (Wet Trimmer from Rx), Adrienne Zarate MD pantoprazole DR [...] hours as needed for pain. Discontinue fentanyl CARETAKER RESORT. Suggest allowing hydromorphone 0.5-1 mg IV every 4 hours as needed for breakthrough pain not relieved with oral medications or NPO or vomiting for ONLY 24 hours, then taper to every 6 hours PRN breakthrough pain not relieved with oral medications or NPO or vomiting. Please call with questions/concerns. Jasper Betts, MSN, RN-BC Clinical Nurse Coordinator Pain Management [phone] Team pager [phone] * Adrienne Carlos RD - 12/31/2017 9:46 [...] (TPN) 65 mL/hr at 12/30/172027 fentaNYL (SUBLIMAZE) CARETAKER RESORT 550 mcg/ NS 55 mL infusion syr (std conc)(premade ) lactated ringers infusion Stopped (12/30/17 1440) PRN and Respiratory Meds:alum/mag hydroxide/simeth Q6H PRN, calcium carbonate Q4H PRN, diazePAM Q6H PRN, diphenhydrAMINE Q6H PRN OR [DISCONTINUED] diphenhydrAMINE Q6H PRN, fentaNYL citrate PF Q1H PRN, naloxone PRN, ondansetron (ZOFRAN) IV Q6H PRN, oxyCODONE Q3H PRN, pancrelipase 20,000 Units/ sodium bicarbonate 650 mg(#) PRN (Wet Trimmer from Rx) Electrolyte Treatments: Nothing besides LR [...] 12/14. Pt reported she was eating well CRUSHER FEEDER and has had a stable weight. Pt's [...] fellow RD, all of Pt's intake of Rickreall shakes may not be included in the [...] + Protein shakes between meals, made with Rickreall Breakfast Essentials (NO SUGAR ADDED), skim milk, [...] are desired. NSS is available by pager [phone]ne [address], LD, [facility] *[phone] * César Davis MD - 12/31/2017 8:01 [...] instead of SNF, would prefer [facility] -Psych, SPEECH LANGUAGE ASSISTANT psych and psychology consults for coping, depression - appreciate assistance -IM consult for hyponatremia and diabetes management- appreciate recs -ID consult for persistent leukocytosis and fevers - Zosyn, micafungin -Nutrition following for optimization - TPN -General Surgery consult - colostomy 12/30 Dispo: Continue inpatient care César Davis MD [phone] * Kerline Kruger, RN - 12/31/2017 8:00 [...] No orders reiceved. Surgery resident, Dr Barrow #[phone] paged. Orders received. Primary RN notified and [...] Dr. Davis gave orders for a Fentanyl CARETAKER RESORT with the settings of 06/25/. Orders in place, nothing further at this [...] Nutrition (TPN) lactated ringers infusion 1,000 mL (12/30/17838) PRN and Respiratory Meds:alum/mag hydroxide/simeth Q6H PRN, calcium carbonate Q4H PRN, diazePAM Q6H PRN, diphenhydrAMINE Q6H PRN OR [DISCONTINUED] diphenhydrAMINE Q6H PRN, fentaNYL citrate PF Q1H PRN, ondansetron (ZOFRAN) IV Q6H PRN, oxyCODONE Q3H PRN, pancrelipase 20,000 Units/ sodium bicarbonate 650 mg (#) PRN (Wet Trimmer from Rx) Physical Examination Vital Signs: Last [...] Diagnostics Review Microbiology data reviewed. Chari Pedro, Pager [phone] ID fellow * Kerline Kruger, RN - [...] as indicated post-operatively. Therapist: [place]us [place]/L [id number] Date: 12/30/2017 * Cassandra Villatoro - 12/30/2017 [...] (12/29/171956) lactated ringers infusion 1,000 mL (12/30/17 0839) PRN and Respiratory Meds:[Nov] alum/mag hydroxide/simeth Q6H PRN, [NOV Hold ] calcium carbonate Q4H PRN, [NOV Hold] diazePAM Q6H PRN, [NOV Hold] diphenhydrAMINE Q6H PRN OR [DISCONTINUED] diphenhydrAMINE Q6H PRN, [NOV Hold ] fentaNYL citrate PF Q1H PRN, [NOV Hold] ondansetron (ZOFRAN) IV Q6H PRN, [NOV Hold] oxyCODONE Q3H PRN, [NOV Hold] pancrelipase 20,000 Units/ sodium bicarbonate 650 mg(#) PRN (Wet Trimmer from Rx) Electrolyte Treatments: None noted yesterday [...] 12/14. Pt reported she was eating well CRUSHER FEEDER and has had a stable weight. Pt's [...] fellow RD, all of Pt's intake of Rickreall shakes may not be included in the [...] of goal) Nneka Thompson MS, RD, LD, [facility] Pager [phone] Office [phone] * Aimee Mccollum DO - 12/30/2017 8:22 [...] mL iso-osmotic IVPB 4.5 g Intravenous Q6H* [Nov] rivaroxaban (XARELTO) tablet 20 mg 20 mg [...] 20,000 Units/ sodium bicarbonate 650 mg(#) PRN (Wet Trimmer from Rx) Vital Signs: Last Filed Vital Signs: 24 Hour Range BP: 123/76 (12/31 819) Temp: 36.9 C (98.4 F) (12/31 819) Pulse: 106 (12/31 819) Respirations: 15 PER MINUTE (12/31 819) SpO2: 94 % (12/31 819) O2 Delivery: None (Room Air) (04/12 0820) Height: 162.6 cm (64") (12/31 819) BP: [...] 24 hours): FSBS (Manual): (!) 160 (12/30/17 3028) Glucose: (!) 165 (12/30/17 3921) POC Glucose (Download): (!) 160 (12/30/17 9041) Aimee Mccollum DO Pager [phone] * César Davis MD - 12/30/2017 7:54 [...] instead of SNF, would prefer [facility] -Psych, SPEECH LANGUAGE ASSISTANT psych and psychology consults for coping, depression - appreciate assistance -IM consult for hyponatremia and diabetes management- appreciate recs -ID consult for persistent leukocytosis and fevers - Radha, appreciate recs -Nutrition following for optimization- nocturnal tube feeds -General Surgery consult- plan for colostomy 12/30 Dispo: NPO for colostomy today César Davis MD [phone] * Grace Smith, SANJAY - 12/30/2017 3:17 AM CDT Pt bowels are not clear. RN paged Onc to see what step to take next to get pt to clear bowels. Onc online trader stated that there was no further action [...] sessions as part of her plan of ocular care aide: Lynn Barrera Date: 12/29/2017 * Chari Moon - 12/29/2017 [...] Cognitive Status: Alert;Oriented;Cooperative Persons Present: Daughter;Spouse (Supervising CRUSHER FEEDER) Pain: Patient complains of pain Pain Location: [...] Units/ sodium bicarbonate 650 mg (#) PRN (Wet Trimmer from Rx) Physical Examination Vital Signs: Last [...] PROGRESS NOTE Patient Name: Beata Kaiser Room/Bed: [place] [address] Admitting Diagnosis: Pelvic mass [R19.00] Pelvic mass [...] and Cooperative to Participate Persons Present: Daughter (cardiac rehabilitation specialist) Home Living Type of Home: House Home Layout: Performs ADL'S on One Level (2 steps to enter) Bathroom Shower / Tub: Tub/Shower Unit Prior Function Level Of [place]: Independent with ADLs and functional transfers Lives [...] OT Discharge Recommendations: Inpatient Setting Equipment Recommendations: [facility] Additional Information: Recommend ongoing assistance for: Transfers, Bed mobility, Dressing, Bathing, Toileting Therapist: SACHA Nath/Tapan [id number] Date: 12/29/2017 * Adrienne Zarate MD - [...] instead of SNF, would prefer [facility] -Psych, SPEECH LANGUAGE ASSISTANT psych and psychology consults for coping, depression - appreciate assistance -IM consult for hyponatremia and diabetes management- appreciate recs -ID consult for persistent leukocytosis and fevers - Radha, appreciate recs -Nutrition following for optimization- nocturnal tube feeds -General Surgery consult- plan for colostomy 12/30 Dispo: Continue inpatient care, NPO at NV and hold tube feeds Adrienne Zarate MD [phone] * Adair Colin MD - 12/28/2017 6:31 [...] between 8am and 3pm on weekends at [phone]. Otherwise, page the vice president marketing & development online trader. Subjective: Beata Kaiser is seen for routine [...] 000 Units/ sodium bicarbonate 650 mg(#) PRN (Wet Trimmer from Rx) Mental Status Exam: General/Constitutional: cooperative, [...] and between 8am and 3pm on weekends [phone]. Otherwise, page the vice president marketing & development online trader. Staff name: Hugh Quintana MD Date: 12/29/2017 [...] Units/ sodium bicarbonate 650 mg (#) PRN (Wet Trimmer from Rx) Physical Examination Vital Signs: Last [...] / Cognitive Status: Alert;Cooperative Persons Present: (Spervising CRUSHER FEEDER) Pain: Patient complains of pain Pain Location: [...] the physical therapy session. * Lexus Shirley, LELAND - 12/28/2017 10:34 AM CDT OCCUPATIONAL THERAPY [...] provide intervention as indicated. Therapist: SACHA Nath/Tapan [id number] Date: 12/28/2017 * Nani Mcelroy RN - [...] BSN Wound Ostomy Nursing Consult Service Office: [phone] Pager: [phone] After hours Wound/Ostomy team pager : [phone] * Dalia Bullock MD - 12/28/2017 9:38 [...] non-insulin dependent diabetes mellitus who presented to [facility] on 12/13/17 for scheduled left hemipelvectomy for [...] Dalia Bullock MD PGY-3 Internal Medicine Pager [phone] Subjective Beata Kaiser is a 52 y.o. [...] 20,000 Units/ sodium bicarbonate 650 mg(#) PRN (Wet Trimmer from Rx) Objective: Vital Signs: Last Filed [...] 0400) POC Glucose (Download): (!) 187 (12/28/17 1005) Radiology and other Diagnostics Review: Pertinent radiology [...] Hgb 8.2 -Rehab consult- appreciate recs -Psych, SPEECH LANGUAGE ASSISTANT psych and psychology consults for coping, depression [...] Dispo: Continue inpatient care Adrienne Zarate MD [phone] * Anita Hines RN - 12/28/2017 12:16 [...] a 52 y.o. female admitted to [facility] on 12/13/2017 with the following issues: [...] acute inpatient rehabilitation. Other recommendations Impaired gait/mobility: CRUSHER FEEDER pt was independent Currently requiring total assist Will benefit from continued work with PT to address mobility deficits Impaired ADL: CRUSHER FEEDER pt was independent Currently requiring total assist Will benefit from ongoing OT to address functional deficits Neuropathic pain Agree with aggressive gabapentin regimen as ordered. Pt will also benefit from de-sensitization techniques as instructed by PT and to be performed by self as able. Hospital Course: Beata Kaiser is a 52 yo F who presented to [facility] on 12/13/17 for scheduled left hemipelvectomy for [...] management due to ongoing pain issues since CARETAKER RESORT removed. Pt has been working with PT/OT [...] set ( turned to R with wedge). FRONT DESK SUPERVISOR COGNITIVE EVALUATION SUMMARY PRAGMATICS: BEHAVIOR: AUDITORY COMPREHENSION: [...] 20,000 Units/ sodium bicarbonate 650 mg(#) PRN (Wet Trimmer from Rx) Objective Vital Signs: Last Filed [...] non-insulin dependent diabetes mellitus who presented to [facility] on 12/13/17 for scheduled left hemipelvectomy for [...] Dalia Bullock MD PGY-3 Internal Medicine Pager [phone] Subjective Beata Kaiser is a 52 y.o. [...] / Cognitive Status: Alert;Cooperative Persons Present: (Supervising CRUSHER FEEDER) Pain: Patient complains of pain Pain Location: [...] CDT PHYSICAL THERAPY MOBILITY NOTE Attempt x1 (2878) Patient was assigned for activity with the mobility aide by the supervising therapist. Patient declined to participate despite encouragement. Patient reports that she is resting comfortably at this time and requests to continue resting. Patient is open to this plant facilities technician returning for mobility session later on this date if time allows. Nursing notified. Will revisit this patient as able. Attempt x2 (8025): Patient was assigned for activity with the mobility aide by the supervising therapist. Patient is unavailable. Patient working with Physical Therapist at this time. Aide: Lynn Barrera Date: 12/27/2017 * Emma See, RD [...] Diet Order: Six Small Meals Oral Supplement: Rickreall Breakfast Essentials No Sugar Added, Protein Powder [...] have any lunch. Dinner was only an Hungarian muffin and grapes. She reports her appetite [...] Hours Status: Not met Emma See RD #[phone]. * Adrienne Zarate MD - 12/27/2017 12:43 [...] Hgb 8.1 -Rehab consult- appreciate recs -Psych, SPEECH LANGUAGE ASSISTANT psych and psychology consults for coping, depression [...] Dispo: Continue inpatient care Adrienne Zarate MD [phone] Associated attestation - Tamiko Luther MD - [...] site. Indy Isabel MD Date: 12/27/2017 Pager: [phone] Interval History Afebrile since 12/23. Reports some [...] collection is noted. Chari Pedro DO Pager [phone] Infectious Diseases Fellow * Fareed Holcomb MD [...] warm, dry Fareed Holcomb MD Personal Pager: [phone] Team Pager: # [phone] * Marlene Ramirez - 12/27/2017 10:15 AM CDT ORTHOTICS/PROSTHETICS Consult Note: NAME: Beata Kaiser ADMISSION DATE: admitted to hospital : 1965 AGE: 52 y.o. ROOM: [place] [address] DOCTOR: Date of Order: 12/24 Date of Service: 12/27 Services referred for: Prosthetic Eval and Treat: KATIE soriano Description of condition/injury, including services:Amputations Size: 1x [...] PROGRESS NOTE Patient Name: Beata Kaiser Room/Bed: [place] [address] Admitting Diagnosis: Pelvic mass [R19.00] Pelvic mass [...] Willing and Cooperative to Participate Persons Present: (cardiac rehabilitation specialist) Home Living Type of Home: House Home Layout: Performs ADL'S on One Level (2 steps to enter) Bathroom Shower / Tub: Tub/Shower Unit Prior Function Level Of [place]: Independent with ADLs and functional transfers Lives [...] mobility, Dressing, Bathing, Toileting Therapist: SACHA Nath/Tapan 0956 Date: 12/27/2017 * Macho Nolasco, PHARMD - [...] needed. Macho Nolasco, FREDO 12/27/2017 * Flakita Allen, RN - 12/27/2017 2:47 AM CDT Paged [...] non-insulin dependent diabetes mellitus who presented to [facility] on 12/13/17 for scheduled left hemipelvectomy for [...] will continue to follow and adjust Subjective Beaat Kaiser is a 52 y.o. female. Feeling [...] 0401) POC Glucose (Download): (!) 215 (12/26/17 2529) Radiology and other Diagnostics Review: Pertinent radiology [...] Cognitive Status: Alert;Cooperative;Oriented;To Person;To Place Persons Present: Bed Laster Pain: Patient complains of pain;02/27;Before activity Pain [...] PROGRESS NOTE Patient Name: Beata Kaiser Room/Bed: [place] [address] Admitting Diagnosis: Pelvic mass [R19.00] Pelvic mass [...] Tub: Tub/Shower Unit Prior Function Level Of [place]: Independent with ADLs and functional transfers Lives [...] Setting Equipment Recommendations: Drop arm BSC, w/c, ag service manager, slide board Additional Information: Recommend ongoing assistance for: Transfers, Bed mobility, Ambulation, Stairs, In and out of house, Toileting Therapist: Christin Helms, OT Date: 12/26/2017 * Bryanna Sepulveda - 12/26/2017 [...] Hgb 7.9 -Rehab consult- appreciate recs -Psych, SPEECH LANGUAGE ASSISTANT psych and psychology consults for coping, depression [...] Continue inpatient care César Davis MD Pager [phone] * Hood Tellez MD - 12/25/2017 6:49 [...] non-insulin dependent diabetes mellitus who presented to [facility] on 12/13/17 for scheduled left hemipelvectomy for [...] 12/25/17 184 Last data filed at 12/25/17 172 Gross per 24 hour Intake 1972 ml [...] 0442) POC Glucose (Download): (!) 292 (12/25/17 9420) Radiology and other Diagnostics Review: Pertinent radiology [...] Mike, PT Date: 12/25/2017 * Lina Lea, SANJAY - 12/25/2017 2:34 PM CDT Placed order [...] 8.3 today -Rehab consult- appreciate recs -Psych, SPEECH LANGUAGE ASSISTANT psych and psychology consults for coping, depression- appreciate assistance -IM consult for hyponatremia- appreciate recs, improving -ID consult for persistent leukocytosis and fevers- Vanc/zosyn, appreciate recs -Nutrition following for optimization; calorie count performed yesterday; request Nutrition evaluation for possible feeding tube placement -CT pelvis ordered to evaluate fluid collection Dispo: Continue inpatient care César Davis MD Pager [phone] * Luis Sargent MD - 12/24/2017 5:29 [...] non-insulin dependent diabetes mellitus who presented to [facility] on 12/13/17 for scheduled left hemipelvectomy for [...] Screen NEG Electronic Crossmatch YES Unit Number [id number] Blood Component Type RBC,ADSOL,LEUKO REDUCED Unit Division [...] Pertinent radiology reviewed. Luis Sargent MD Pager [phone] * Italia Ramos RN - 12/24/2017 3:33 [...] 1 unit of blood soon. * Italia Ramos RN - 12/24/2017 11:45 AM CDT Pt MANNY drain having large amount of output, drained 480ml. As soon as MANNY drained it fills back up again. Dr. Zarate notified via text page. No new orders at this time. * Lexus Shirley OT - 12/24/2017 11:30 AM CDT Formatting of this note may be different from the original. OCCUPATIONAL THERAPY PROGRESS NOTE Patient Name: Beata Kaiser Room/Bed: [place] [address] Admitting Diagnosis: Pelvic mass [R19.00] Pelvic mass [...] Cooperative to Participate Persons Present: RN (personal financial representative, cardiac rehabilitation specialist) Home Living Type of Home: House Home Layout: Performs ADL'S on One Level (2 steps to enter) Bathroom Shower / Tub: Tub/Shower Unit Prior Function Level Of [place]: Independent with ADLs and functional transfers Lives [...] Pt supine at OT departure with staff appraiser at bedside. Activity Tolerance Endurance: 2/5 Tolerates [...] unit today -Rehab consult- appreciate recs -Psych, SPEECH LANGUAGE ASSISTANT psych and psychology consults for coping, depression- appreciate assistance -IM consult for hyponatremia- appreciate recs -ID consult for persistent leukocytosis and fevers- Vanc/zosyn, appreciate recs -Nutrition following for optimization -Calorie count today -PICC line ordered Dispo: continue inpatient care Adrienne Zarate MD Pager [phone] * Nani Lynch DO - 12/24/2017 7:44 [...] Lynch DO Division of Infectious Diseases Pager [phone] Dr. Isabel will round again on the patient on Wednesday. Please feel free to call the ID fellow online trader at pager [phone] if there are any new issues or [...] Fecal device Lab Review Hematology Recent Labs 12/22/173 12/23/17 0712/24/17 0434 WBC 22.2* 20.8* 16.9* HGB 8.5* 8.3* 7.3* HCT 24.1* 24.7* 21.3* PLTCT 349 336 294 Chemistry Recent Labs 12/22/1741212/23/17 0729 12/24/17 0434 NA 127* 127* 126* K 4.2 [...] acute cardiopulmonary abnormality. Dominique Nelson MD Pager [phone] Infectious Diseases Fellow * Olena Xiong - 12/24/2017 12:22 AM CDT Clot [...] non-insulin dependent diabetes mellitus who presented to [facility] on 12/13/17 for scheduled left hemipelvectomy for [...] needs further assistance, the service should page [phone] (24 hours a day/7 days a week) [...] Pertinent radiology reviewed. Luis Sargent MD Pager [phone] * Kaylie Johnson - 12/23/2017 3:24 PM [...] and adjust therapy as needed. Kaylie Johnson [facility] 12/23/2017 * Nani Lynch DO - [...] Lynch DO Division of Infectious Diseases Pager [phone] Interval History Fever up to 38.9 No [...] atelectasis and/or pneumonia. Dominique Nelson MD Pager [phone] Infectious Diseases Fellow * Herminia Gant OTA [...] Tub: Tub/Shower Unit Prior Function Level Of [place]: Independent with ADLs and functional transfers Lives [...] OT Discharge Recommendations: Inpatient Setting Equipment Recommendations: [facility] Additional Information: Next treatment: cardiac chair ordered [...] monitor -Rehab consult- appreciate recs -Psych and SPEECH LANGUAGE ASSISTANT psych consults for coping, depression- appreciate assistance -IM consult for hyponatremia- appreciate recs -ID consult for persistent leukocytosis and fevers- zosyn, appreciate recs -Nutrition following for optimization Dispo: continue inpatient care Adrienne Zarate MD Pager [phone] * Kerline Kruger RN - 12/23/2017 10:[address] Zarate notified about patients temperature of 38.9 C (102 F) and patients lethargy. Patient is unable to carry on conversation and barely able to answer questions before drifting off to sleep. Dr. Zarate stated that she would come to see the patient shortly. Nothing further at this time. * Ivette Wade APRN-SPEECH LANGUAGE ASSISTANT - 12/23/2017 9:35 AM CDT Patient too tired to engage in conversation this morning. Will continue to try to find her and talk about her emotional recovery from her new body image. She is a very self reliant and resilient woman by history. Please use the sleep bundle to assure her at leat 4 hours of uninterrupted sleep. Ivette Wade [facility]- [phone] * Olena Xiong - 12/22/2017 9:36 PM CDT Notified [...] from the original. General Progress Note Name: eBata Kaiser Today's Date: 12/22/2017 Admission Date: 12/13/2017 LOS: 9 days Assessment/Plan: Principal Problem: Pelvic mass Active Problems: Pelvic mass in female Metabolic acidosis Acute blood loss as cause of postoperative anemia Depression Anxiety DM (diabetes mellitus) (HCC) Hypothyroidism Hemorrhagic shock (HCC) Beata Kaiser is a 52 y.o. female Hx of hypothyroidism and non-insulin dependent diabetes mellitus who presented to [facility] on 12/13/17 for scheduled left hemipelvectomy for [...] needs further assistance, the service should page [phone] (24 hours a day/7 days a week) [...] (Last 24 hours) Glucose: (!) 142 (12/22/17 5120) POC Glucose (Download): (!) 227 (12/22/17 9175) Radiology and other Diagnostics Review: Pertinent radiology reviewed. Luis Sargent MD Pager [phone] * Kendrick Varma RN - 12/22/2017 4:58 [...] / Cognitive Status: Alert;Oriented;Cooperative;Follows Commands Persons Present: Bed Laster;Nursing Staff Pain: Patient complains of pain;2/10 (varies [...] Discharge Recommendations: Inpatient Setting Therapist: Tanisha Acosta, RODO Date: 12/22/2017 * Herminia Gant OTA - [...] Current Oral Intake: Improving Estimated Calorie Needs: 9278-9069 (27-30 kcal/kg desired wt of 55.3kg.) Estimated Protein Needs: 100 (1.8 g/kg desired wt of 55.3kg.) Oral Diet Order: Regular Beata Kaiser is a 52 y.o. 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 Pt reported she was eating well CRUSHER FEEDER and has had a stable weight. (Pt's weight is now down 28# or 12% s/p removal of her leg). Pt appears obese.. Pt reports decreased po intake, no GI concerns. She has somewhat of a flat affect. I was able to engaged her in education regarding her high protein needs. I also encouraged and provided her with a Rickreall high protein shake which she liked and was sipping on at time of my visit (cleared with RN first / pt is diabetic and on a dluid restriction). She reports she is familiar with diabetic diet and has no questions. RD to continue to follow to ensure adequate protein and po intake. Recommendation: Continue 9936-5226 Consistent Carb Diet OR if bs's elevated, [...] Frame: Within 72 Hours Emma See, KAYA #[phone]. * Shilpi Camejo RN - 12/22/2017 12:39 PM CDT Pt has had several loose stools today. C diff screen negative as of 12/20. Spoke with Dr Zarate for possible imodium orders. Will hold off until ID sees her for rounds * Ivette Wade, PRINTING WORKER SUPERVISOR-SPEECH LANGUAGE ASSISTANT - 12/22/2017 10:05 AM CDT Patient was [...] help her have better sleep. Ivette Wade [facility]- [phone] * Adrienne Zarate MD - 12/22/2017 [...] continue to monitor -Rehab consult- appreciate recs -SPEECH LANGUAGE ASSISTANT psych consult for coping, depression- appreciate assistance -IM consult for hyponatremia- appreciate recs -Nutrition following for optimization Dispo: continue inpatient care Adrienne Zarate MD Pager [phone] * Ivette Wade APRN-SPEECH LANGUAGE ASSISTANT - 12/21/2017 2:30 PM CDT Patient resting. Spoke with her father. Will return in AM. Ivette Wade [facility]- [phone] * Adrienne Zarate MD - 12/21/2017 [...] continue to monitor -Rehab consult- appreciate recs -SPEECH LANGUAGE ASSISTANT psych consult for coping, depression- appreciate assistance -IM consult for hyponatremia- appreciate recs Dispo: continue inpatient care Adrienne Zarate MD Pager [phone] * Herminia Gant OTA - 12/21/2017 1:23 [...] Tub: Tub/Shower Unit Prior Function Level Of [place]: Independent with ADLs and functional transfers Lives [...] Recommendations: BS Additional Information: Next treatment: Continue to progress [...] Current Oral Intake: Improving Estimated Calorie Needs: 2617-8263 (30-35 kcals/kg per DBW 55.3kg) Estimated Protein Needs: 83-111 (1.5-2 gm/kg per DBW 55.3kg) Oral Diet Order: Regular Beata Kaiser is a 52 y.o. 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 Pt reported she was eating well CRUSHER FEEDER and has had a stable weight. (Pt's [...] tolerance. Recommendation: Recommend switching to Diabetic Diet 7994-1358 kcals due to Pt's h/o DM and [...] Nneka Thompson MS, RD, LD, CNSC Pager [phone] Office [phone] * Annette Lign, RN - 12/20/2017 3:55 PM CDT When the patient was cleaned up, the PNC catheter was dislodged and laying in the bed. PNC had not been infusing since yesterday in the SICU. * Keiko Cao - 12/20/2017 3:28 PM CDT Unit Steel Tester checked chart for note taking regarding Unit assignments. The spiritual care team is available as needed, 12/04, through the [facility] switchboard ([phone]). For immediate response, please page [phone]. For a response within 24 hours, please submit an order in O2 for a yarrow gatherer consult or call the administrative voicemail at [phone]. Respectfully Submitted, . Keiko Cao Infantryman Extension [phone] * Ruth Abbott, PT - 12/20/2017 1:02 PM CDT PHYSICAL THERAPY NOTE Attempted to see patient this afternoon at scheduled time with plant facilities technician. Patient just transferred off of SICU [...] arrived to unit. * Melba Forbes M.Div, [facility] - 12/20/2017 11:30 AM CDT Steel Tester Note: Admit Date: 12/13/2017 Reason for Visit: Steel Tester met with patient per her request for a yarrow gatherer visit. Steel Tester introduced Spiritual Care and offered active listening as pt shared about her health issues and family. Shantell/Restorationist: Pt confirmed that she is Anabaptist. Pt has recently gone to [employer] [facility] in [place], [place] with some co-workers. Pt states this adventism is "more Taoist" bus she likes it saying the "education teacher provides a good message." Source of Purpose/Meaning: Pt's family appears to be important to her. One daughter, Lynn, was in pt's room and pt has another daughter and son plus her spouse. 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 Pt is not sure that she will be able to keep that same job, yet is hoping to be able to stay on doing more desk work. Steel Tester did not catch the name of her [...] support from her community and work. Interventions/Plan: Steel Tester provided supportive presence as pt shared about her situation. Pt requested prayer which yarrow gatherer provided. Pt would appreciate follow-up visits and is not sure if she will go to another unit and later rehab as she continues to recover. Steel Tester also spoke individually to daughter Lynn and learned that she is with her first child. Pt has other grandchildren (ages 8 & 4) so this will be her third grandchild. Family is traveling back and forth from [place] to support pt. The spiritual care team is available as needed, 12/04, through the [facility] switchboard ([phone]). For immediate response, please page [phone]. For a response within 24 hours, please submit an order in O2 for a yarrow gatherer consult or call the administrative voicemail at [phone]. Please page or use consult order if patient or family requests visit. Date/Time: User: Pager: [phone] 12/20/2017 1:11 PM Melba Forbes M.Div, [facility] PCU 5 PCU * Herminia Gant OTA [...] Tub: Tub/Shower Unit Prior Function Level Of [place]: Independent with ADLs and functional transfers Lives [...] continue to monitor -Rehab consult- appreciate recs -SPEECH LANGUAGE ASSISTANT psych consult for coping, depression- appreciate assistance Dispo: continue inpatient care, transfer to floor Adrienne Zarate MD Pager [phone] * Ruth Abbott, PT - 12/19/2017 1:33 [...] / Cognitive Status: Alert;Oriented;Cooperative;Follows Commands Persons Present: Bed Laster;Daughter Pain: Patient complains of pain;Before activity;During activity;Patient does not rate pain Pain Location: Left;Hip Pain Interventions: Patient pre-medicated;Patient agrees to participate in therapy with modifications to session;Patient encouraged to use CARETAKER RESORT/PNC (IV) Precautions: NGT, 1 MANNY drain L [...] 52 y.o. female : 1965 MRN# : [id number] PROCEDURE: Procedure(s) with comments: JAMIL PELVECTOMY - [...] us with any questions. Anesthesia Pain pager: [phone] Allergies Allergen Reactions Cephalexin SEE COMMENTS Face [...] removed, tolerating CLD. Issues with pain after CARETAKER RESORT removed. Continues to have flatus. +BM. Objective: [...] to floor tomorrow Kristie Cruz MD Pager [phone] * Chris Badillo MD - 12/19/2017 6:31 [...] 52 y.o. female : 1965 MRN# : [id number] PROCEDURE: Procedure(s) with comments: JAMIL PELVECTOMY - [...] transition to oral analgesics Anesthesia Pain pager: [phone] Allergies Allergen Reactions Cephalexin SEE COMMENTS Face [...] 20 mmol Intravenous ONCE Continuous Infusions: bupivacaine CARETAKER RESORT 0.125% in NS 50mL epidural infusion syr [...] continue ICU care Kristie Cruz MD Pager [phone] * Harry Moore MD - 12/18/2017 6:47 [...] - 100 MG/DL Final Medications: gtts bupivacaine CARETAKER RESORT 0.125% in NS 50mL epidural infusion syr [...] ASSESSMENT NOTE Patient Name: Beata Kaiser Room/Bed: [place] [address] Admitting Diagnosis: Pelvic mass [R19.00] Pelvic mass [...] Tub: Tub/Shower Unit Prior Function Level Of [place]: Independent with ADLs and functional transfers Lives [...] address most appropriate level of rehabilitation placement [phone]). Therapist: Tanya Spain OT Date: 12/17/2017 * [...] with modifications to session;Patient encouraged to use CARETAKER RESORT/PNC (IV) Precautions: Epidural,NGT, 1 MANNY drain L [...] Abbott, PT, DPT Date: 12/17/2017 * Nneka Thompson, RD - 12/17/2017 1:20 PM CDT CLINICAL NUTRITION Clinical Nutrition Assessment Summary Nutrition Assessment of Patient: BMI Categories Adult: Obesity Class II: 35-39.9 Malnutrition Assessment: Adequately nourished prior to admission Current Oral Intake: NPO Estimated Calorie Needs: 5841-9499 (30-35 kcals/kg per DBW 65.8 kg ) [...] am. Pt reports she was eating well CRUSHER FEEDER and has had a stable weight. EMR [...] Nneka Thompson MS, RD, LD, CNSC Pager [phone] Office [phone] * Gagan Dunlap, DO - 12/17/2017 11:57 AM CDT Formatting of this note may be different from the original. Anesthesiology Acute Pain Service Date of Service: 12/17/2017 Name: Beata Kaiser is a 52 y.o. female : 1965 MRN# : [id number] PROCEDURE: Procedure(s) with comments: JAMIL PELVECTOMY - CASE LENGTH 5 HOURS CYSTORRHAPHY AND BLADDER NECK REPAIR, CYSTOSCOPY, LEFT ILIAC EXPOSURE POD #: 3, PCEA day 2 ANALGESIA TECHNIQUE Epidural catheter: Bupi 0.125% ADJUNCT ANALGESIA MEDICATIONS dilaudid acetaminophen PO gabapentin TREATMENT PLAN Continue use of epidural for pain management and discontinue CARETAKER RESORT and convert to dilaudid PRN. Bolused epidural with 1% lidocaine and increased concentration now that hemodynamically stable. Anesthesia Pain pager: [phone] Allergies Allergen Reactions Cephalexin SEE COMMENTS Face [...] tube QDAY before breakfast Continuous Infusions: bupivacaine CARETAKER RESORT 0.125% in NS 50mL epidural infusion syr [...] improved pain control. * Melba Forbes M.Div [facility] - 12/17/2017 11:30 AM CDT Steel Tester Note: Admit Date: 12/13/2017 Steel Tester attempted to meet with patient, but pt was sleeping and did not awaken to her name. No family members were present. Please page or use consult order if patient or family requests visit. Steel Tester will continue to follow. Date/Time: User: Pager: [phone] 12/17/2017 1:45 PM Melba Forbes M.Div [facility] PCU 2 PCU * Adrienne Zarate MD [...] continue ICU care Adrienne Zarate MD Pager [phone] * Casa George MD - 12/17/2017 8:43 [...] Depression 12/14/2017 Anxiety 12/14/2017 DM (diabetes mellitus) ([facility]) 12/14/2017 Hypothyroidism 12/14/2017 Pelvic mass in female 12/13/2017 Pelvic mass 11/30/2017 Mass 11/24/2017 Chondrosarcoma ([facility]) 11/24/2017 S: ALE. C/o some pain this [...] postoperative anemia Depression Anxiety DM (diabetes mellitus) ([facility]) Hypothyroidism Hemorrhagic shock ([facility]) Plan: Neuro Acute pain. anesthesia pain on [...] - 100 MG/DL Final Medications: gtts bupivacaine CARETAKER RESORT 0.0625% in NS 50mL epidural infusion syr [...] 52 y.o. female : 1965 MRN# : [id number] PROCEDURE: Procedure(s) with comments: JAMIL PELVECTOMY - CASE LENGTH 5 HOURS CYSTORRHAPHY AND BLADDER NECK REPAIR, CYSTOSCOPY, LEFT ILIAC EXPOSURE POD #: 2, PCEA day 1 ANALGESIA TECHNIQUE Epidural catheter: bupivacaine 0.0625% ADJUNCT ANALGESIA MEDICATIONS dilaudid acetaminophen PO gabapentin TREATMENT PLAN Continue use of epidural for pain management and discontinue CARETAKER RESORT and convert to dilaudid PRN Anesthesia Pain pager: [phone] Allergies Allergen Reactions Cephalexin SEE COMMENTS Face [...] SOLP (Cabinet Override) NOW Continuous Infusions: bupivacaine CARETAKER RESORT 0.0625% in NS 50mL epidural infusion syr [...] Pain much better controlled with epidural and CARETAKER RESORT. Complains of a sore throat and some [...] continue ICU care Adrienne Zarate MD Pager [phone] * Valerie Couch MD - 12/16/2017 6:52 [...] on 2L Pulmonary toilet, encourage IS GI/FEN AIU-cteyefhyloeu-Yih 2.9, ARBF NGT: 1L pepcid Zofran prn [...] - 100 MG/DL Final Medications: gtts bupivacaine CARETAKER RESORT 0.0625% in NS 50mL epidural infusion syr HYDROmorphone (DILAUDID) CARETAKER RESORT 11 mg/NS 55mL infusion syr (std conc)(premade [...] epidural -- PNC -- gabapentin -- dilaudid CARETAKER RESORT depression -- Wellbutrin -- buspar CV Mildly [...] - 100 MG/DL Final Medications: gtts bupivacaine CARETAKER RESORT 0.0625% in NS 50mL epidural infusion syr HYDROmorphone (DILAUDID) CARETAKER RESORT 11 mg/NS 55mL infusion syr (std conc)(premade [...] (ZOFRAN) IV Q6H PRN Vania Hay MD [phone] Associated attestation - Harris Hurst MD - [...] the resident physician, nursing, RT, pharmacy and brand sales consultant staff. I directly supervised the resident [...] PhD GALA FACS Surgical Critical Care Pager [phone] Date: 12/16/2017 * Casa George MD - [...] change performed. Net weight of drainage on mwr=753zd. Ortho team paged (Dr. Swanson). * Gagan Dunlap DO - 12/15/2017 2:36 PM CDT Formatting of this note may be different from the original. Anesthesiology Acute Pain Service Date of Service: 12/15/2017 Name: Beata Kaiser is a 52 y.o. female : 1965 MRN# : [id number] PROCEDURE: Procedure(s) with comments: JAMIL PELVECTOMY - CASE LENGTH 5 HOURS CYSTORRHAPHY AND BLADDER NECK REPAIR, CYSTOSCOPY, LEFT ILIAC EXPOSURE POD #: 1 ANALGESIA TECHNIQUE Epidural catheter: bupivacaine 0.0625% Bolus: 4 mL Delay: 20 minutes Basal Infusion: 6 mL/hr ADJUNCT ANALGESIA MEDICATIONS dilaudid acetaminophen PO gabapentin Ketamine gtt TREATMENT PLAN Continue use of CARETAKER RESORT for pain management, Continue use of epidural for pain management and Modification in therapy to improve pain control Epidural placed today once determined patient would not be therapeutically anticoagulated. Added ketamine gtt as adjunct. Continue dilaudid CARETAKER RESORT. Will dc the PNC catheter since epidural in place. Anesthesia Pain pager: [phone] Allergies Allergen Reactions Cephalexin SEE COMMENTS Face [...] tube QDAY before breakfast Continuous Infusions: bupivacaine CARETAKER RESORT 0.0625% in NS 50mL epidural infusion syr bupivacaine CARETAKER RESORT PNC 0.125% infusion syringe HYDROmorphone (DILAUDID) CARETAKER RESORT 11 mg/NS 55mL infusion syr (std conc)(premade [...] closely. * Ruma Reynolds, RN - 12/15/2017 1:30 PM CDT 1330 - [...] continue ICU care Adrienne Zarate MD Pager [phone] * Ruma Reynolds RN - 12/15/2017 12:30 [...] provide intervention as able. Joanne Abernathy, OTR/L [phone] * Valerie Couch MD - 12/15/2017 9:29 [...] epidural -- PNC -- gabapentin -- dilaudid CARETAKER RESORT depression -- Wellbutrin -- buspar CV Mildly [...] 12/15/17 0720 Gross per 24 hour Intake 90374.76 ml Output 5880 ml Net 5520.76 ml [...] - 100 MG/DL Final Medications: gtts bupivacaine CARETAKER RESORT PNC 0.125% infusion syringe HYDROmorphone (DILAUDID) CARETAKER RESORT 11 mg/NS 55mL infusion syr (std conc)(premade [...] (ZOFRAN) IV Q6H PRN Harry Moore MD 7400 ATTESTATION.. I have seen, personally fully evaluated, [...] functional in the mean time a Fentanyl CARETAKER RESORT at 10mcg q10min was given to the patient to help decrease her pain. Keith Garcia DO CA-1, Anesthesiology Pager [phone] * Eunice Helms, LELAND - 12/14/2017 12:49 [...] today for hemipelvectomy - Keep NPO Anthony [phone] * Olena Melgoza, RN - 12/14/2017 5:42 AM CDT [...] Lund, PT, DPT Date: 12/13/2017 * Belen Mahmood, RN - 12/13/2017 3:03 PM CDT 1445- [...] Date: 12/13/2017 Banuelos AC=Airway clearance AM=Aerosolized medication BA=[place] aerosol DB&C=Deep breathe & cough FEV1=Forced expiratory volume in first second) IC=Inspiratory capacity LE=Lung expansion MDI=Metered dose inhaler Neb=Nebulizer O2=Oxygen Oxim=Oximetry PEFR=Peak expiratory flow rate FIRST GRADE TEACHER=Rapid Response Team * Mita Meyer RN - [...] 24 hours): FSBS (Manual): (!) 160 (12/30/17 5572) Glucose: (!) 165 (12/30/17 2877) POC Glucose (Download): (!) 160 (12/30/17 0220) I have examined the patient, and there [...] Pager Consult Orders: CONSULT COLO-RECTAL SURGERY PHYSICIAN [[id number]] ordered by Montez Agudelo DO at 12/26/17 [...] plan of care. Ramos Cheatham DO Pager: [phone] __ HPI: Beata Kaiser is a 52 [...] PELVECTOMY performed by Tamiko Luther MD at [facility] OR/Periop URETER STENT PLACEMENT Bilateral 12/14/2017 CYSTORRHAPHY [...] Vital Signs: 24 Hour Range BP: 136/79 (04/08 1850) Temp: 36.7 C (98.1 F) (12/26 1849) [...] 0401) POC Glucose (Download): (!) 215 (12/26/17 9782) Ramos Cheatham DO Pager:[phone] * Spencer Purcell MD - 12/14/2017 6:04 [...] Marino Real MD PGY-2 Urology Resident Pager: [phone] __ HPI: Beata Kaiser is a 52 [...] for hemipelvectomy -Clear liquid diet, NPO at NV -Bowel prep -Neomycin/erythromycin oral -heparin drip for DVT, stop at MN prior to procedure -Vascular surgery to assist and is aware -Urology for stent placement prior to procedure and is aware -General surgery consult for intraoperative assistance -Labs -Resume home meds -4 units pRBCs held for OR tomorrow Patient discussed with Dr. Ashkan Zarate MD [phone] History of Present Illness: Beata aKiser is a 52 y.o. female. Ms. Kaiser [...] nerve or vessel damage were discussed. Indications: Lime Sludge Kiln Operator IV therapy, TPN Procedure: Under sterile conditions [...] With My Assessment? Yes Wound Base Assessment Black;[place];Gallardo Surrounding Skin Assessment Intact Wound Site Closure [...] BSN Wound Ostomy Nursing Consult Service Office: [phone] Pager: [phone] After hours Wound/Ostomy team pager : [phone] * Emma Payton RN - 01/07/2018 4:30 [...] - Diabetes Education Nursing Clinical Excellence [facility] [email or web address] [phone] office [phone] pager * Nani Mcelroy RN - 01/03/2018 9:31 AM CDT Associated Order(s): CONSULT WOUND/OSTOMY TEAM Wound Ostomy Note NAME:Beata Kaiser :1965 AGE: 52 y.o. ADMISSION DATE: 12/13/2017 DAYS ADMITTED: LOS: 21 days Reason for Consult/Visit: ostomy education Pt seen 12/31 Will follow up as appropriate for education Nani Mcelroy RN, BSN Wound Ostomy Nursing Consult Service Office: [phone] Pager: [phone] After hours Wound/Ostomy team pager : [phone] * Kalie Sibley MBBS - 12/31/2017 4:44 [...] with stress hyperglycemia A1c 6.5 , controlled CRUSHER FEEDER regimen: Metformin thousand milligrams twice a day, jardiance 25 mg daily Hypoglycemic episodes on this regimen: None and not checking blood sugars at home Follows up with for diabetes management: Primary care physician at [facility] Diabetic-complications assessment: Retinopathy: None Peripheral neuropathy: Yes on treatment Autonomic neuropathy: None Nephropathy: None Macrovascular complications: None Risk factor assessment: Last lipid profile - None on file On ACEi/ARB: Yes On Statin: yes 2. Hypothyroidism CRUSHER FEEDER 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 daily TSH 2.1 [...] 1624) O2 Delivery: None (Room Air) (12/31 1625) BP: (100-141)/(61-81) Temp: [36.4 C (97.6 F)-37.2 [...] or lesions noted Pulses: 2+ and symmetric SPEECH LANGUAGE ASSISTANT: Nonfocal, moves all extremities Lab: Recent Labs [...] reviewed. Kalie Sibley Endocrine Fellow Pager # [phone] 12/31/2017 Associated attestation - Marco Payne MD [...] Text paged Harry Moore, Surgery Ortho resident online trader ([phone]) to ask if they had considered an Endocrine consult to assist with managing blood glucose readings. Today pt's BG has ranged from 268 to 351 and with the exception of yesterday morning when pt was NPO for surgery, she has been that high for the last couple of days. Emma Payton, FLAVIAN, RN Clinical Nurse Coordinator - Diabetes Education Nursing Clinical Excellence [facility] [email or web address] [phone] office [phone] pager * Nneka Thompson RD - 12/29/2017 [...] Units/ sodium bicarbonate 650 mg (#) PRN (Wet Trimmer from Rx) Electrolyte Treatments: None given yesterday [...] 12/14. Pt reported she was eating well CRUSHER FEEDER and has had a stable weight. Pt's [...] fellow RD, all of Pt's intake of Rickreall shakes may not be included in the [...] start. TPN to be held in the [facility] fridge overnight until Pt has appropriate central [...] gm/kg DBW) Nneka Thompson MS, RD, LD, [facility] Pager [phone] Office [phone] * Anita Everett RN - 12/28/2017 1:43 [...] cut pouch. Explained to pt that an guitar instructor will start teaching once the stoma has been placed. Questions answered. Anita Everett, RN, BSN, CMSRN, CWON Wound Ostomy Nursing Consult Service Office: [phone] Pager: [phone] After Hours Wound/Ostomy Team Pager: [phone] * Emma See, RD - 12/28/2017 12:34 [...] Diet Order: Six Small Meals Oral Supplement: Rickreall Breakfast Essentials No Sugar Added, Protein Powder, TID Intake (calories) Daily Average : 600 kilocalories (35% est needs) Intake (protein) Daily Average : 33 grams (33% est needs) Current EN Order: Isosource 1.5 @ 80ml/hr x's 8 hrs (6447-7109). At goal will provide: 960 kcal (58% [...] counted as part of leslie count. Recommendation: 3380-4569 Consistent Carb Diet. Protein shakes between meals, made with Rickreall Breakfast Essentials (NO SUGAR ADDED), skim milk, [...] 72 Hours Status: Not met;Ongoing Emma See, RD #[id number]. * Emma Payton RN - 12/28/2017 12:30 PM CDT Associated Order(s): CONSULT DIABETES NURSE EDUCATOR INPATIENT DIABETES EDUCATION TEAM Clinical Excellence Nursing Practice Reason for Consult: New Insulin Discussed Consult with Primary Team: Bedside Kerline GRACE Patient may benefit from: further instruction on [...] how she struggles to manage her diabetes. Arcade Game Technician offered to follow up with instruction of [...] - Diabetes Education Nursing Clinical Excellence [facility] [email or web address] [phone] office [phone] pager * Emma Payton RN - 12/28/2017 8:06 AM CDT Arcade Game Technician spoke with Dr. Marcelino with consulted medicine team to request an order for A1C since there were no recorded values in the last [address] Mareclino to enter order. 0851 Further review of [...] Name: Beata Kaiser Admit Date: 12/13/2017 Room: [facility]/ Reason for consult, "Hemipelvectomy, chronic pain, acute [...] medications and calcintonin. Virgen K, Anastasiia S, [place] T, Predavidl H, Castro C, Catarina M, et al. Prevention of phantom limb pain and cortical reorganization in the early phase after amputation in humans. Soc Neurosci Abstr 2001; 28: 896736 NMDA antagonist memantine was used with good results perioperative and acute post-operatively. Calcitonin in phantom limb pain: a double-blind study Author: Ashwin Johnson Journal: Pain ([place]) ISSN: [id number] Date: 09/1991 Volume: 48 Issue: 1 Starting page number: [phone] Calcitonin infusions also showed good outcomes with [...] - Gabapentin 800 mg PO twice daily, 0532-6268 - Gabapentin 600 mg PO twice daily, 7786-0662 Anticipated D/C Planning: Non-pharmacological interventions. Multi-modal oral pain regimen. Summary: Ms. 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 Thank you for allowing our service to participate in the care of this patient. Please page with questions/concerns, team pager [phone]. Jasper Betts, MSN, RN- Clinical Nurse Coordinator Pain Management [phone] Current Medication Regimen: Current Facility-Administered Medications: acetaminophen [...] Adrienne Zarate MD, 25 mg at 12/19/17 7509 fentaNYL citrate PF (SUBLIMAZE) injection 50-100 mcg, [...] filled at one pharmacy. Last prescriptions written, [facility] -0091 [phone] [address] [address] [address] Colton Welch 12/03/2017 1 12/03/2017 OXYCODONE HCL 5 MG TABLET 75.0 7 CA ARTI [id number] [facility] ( 7876) Assessment: (W) Words to describe pain: Burning, I can still feel my leg and foot (I) Intensity of pain: severe Patient's personal pain goal: mild (L) Location of pain: Left lower extremity (D) Duration of pain: constant (A) Aggravating/Alleviating factors: Constant / not much, I think gabapentin is helping Last Bowel Movement: 12/26/2017 Opioid Calculations: Date: CRUSHER FEEDER PT to surgery Oxycodone 60 mg Total [...] plan of care. Ramos Cheatham DO Pager: [phone] ATTESTATION I personally performed the banuelos portions [...] PELVIS performed by Tamiko Luther MD at [facility] OR/Periop PELVIS OSTEOTOMY Left 12/14/2017 JAMIL PELVECTOMY performed by Tamiko Luther MD at [facility] OR/Periop URETER STENT PLACEMENT Bilateral 12/14/2017 CYSTORRHAPHY [...] Vital Signs: 24 Hour Range BP: 136/79 (04/08 1850) Temp: 36.7 C (98.1 F) (12/26 1849) [...] 0401) POC Glucose (Download): (!) 215 (12/26/17 2716) Ramos Cheatham DO Pager:[phone] * Nneka Thompson RD - 12/25/2017 4:52 [...] wt of 55.3kg.) Oral Diet Order: Diabetic 8904-9584 Kcal/day (60 g Carb/meal, 30 g Carb/HS [...] 12/14. Pt reported she was eating well CRUSHER FEEDER and has had a stable weight. (Pt's [...] 72 Hours Nneka Thompson MS, RD, LD, [facility] Pager [phone] Office [phone] * Halima Miranda - 12/24/2017 3:42 PM CDT Associated Order(s): CONSULT PSYCHOLOGY Formatting of this note may be different from the original. 4514-9286 Pt was seen b/s for initial eval with no family or significant others present. Diagnosis: F33.0 Major depressive disorder, recurrent, mild; F41.1 Generalized anxiety disorder Requesting Physician:Elliot/Ashkan Reason for Request: Depression, coping Relevant History: The following history was taken from available medical records unless otherwise indicated. Pt is a 52 y.o., , female, RH admitted on 12/13/2017 to [facility] for a scheduled hemipelvectomy and cystoscopy with bilateral ureteral stent placement on 12/14/17. Pt previously underwent open biopsy of left pelvis on 3/12 that was consistent with chondrosarcoma and was [...] and 2 of her adult children in [place], [place]. Pt identified her grandchildren and family [...] Ph.D. Neurorehabilitation Psychology Postdoctoral Fellow Pager #: [phone] * Nani Mcelroy RN - 12/23/2017 1:53 [...] Type:: Wound Description (Comments): Wound Base Assessment Moist;[place];Yellow 12/23/2017 1:00 PM Surrounding Skin Assessment [place];Edema 12/23/2017 1:00 PM Wound Length (cm) (Wound [...] BSN Wound Ostomy Nursing Consult Service Office: [phone] Pager: [phone] After hours Wound/Ostomy team pager : [phone] * Berto Caldwell, - 12/23/2017 12:20 PM CDT Associated Order(s): CONSULT ADULT PSYCHIATRY PHYSICIAN Formatting of this note may be different from the original. PSYCHIATRY CONSULT NOTE Room/Bed: [place] [address] Admission Date: 12/13/2017 LOS: 10 days Consult [...] between 8am and 3pm on weekends at [phone]. Otherwise, page the vice president marketing & development online trader. Chief Concern: "feeling a little disoriented" History [...] Notes having 3 grandchildren. Was working making [employer] at the [employer]. Social History Social History Marital status: Spouse [...] fair, appropriate for conversation Cognition: average Language: divehi, fluent Fund of knowledge and vocabulary: average [...] 174 (H) 70 - 100 MG/DL Berto Cadlwell DO Associated attestation - Adrienne Negron DO [...] and between 8am and 3pm on weekends [phone]. Otherwise, page the vice president marketing & development online trader. Staff name: Adrienne Negron, Date: 12/23/2017 * [...] Nani Lynch, Division of Infectious Diseases Pager [phone] History of Present Illness Beata Kaiser is [...] status/area of residence: lives with her Job/occupation: [employer] Travel history: [place] in Sep 2016 Environmental/outdoor/food exposures: hospitalized from [...] Signs: 24 Hour Range BP: 117/64 (12/22 1325) Temp: 37.6 C (99.7 F) (12/22 1021) Pulse: 106 (12/22 1326) Respirations: 18 PER [...] atelectasis and/or pneumonia. Dominique Nelson MD Pager [phone] Infectious Diseases Fellow * Nani Mcelroy RN [...] and non-insulin dependent diabetes mellitus admitted to [facility] on 12/13/17 for scheduled left hemipelvectomy for [...] BSN Wound Ostomy Nursing Consult Service Office: [phone] Pager: [phone] After hours Wound/Ostomy team pager : [phone] * Luis Sargent MD - 12/21/2017 9:49 AM CDT Associated Order(s): CONSULT INTERNAL MEDICINE PHYSICIAN Formatting of this note may be different from the original. General Consult Note Admission Date: 12/13/2017 LOS: 8 days Reason for Consult: Hyponatremia Consult type: Opinion with orders Assessment/Plan Beata Kaiser is a 52 y.o. female Hx of hypothyroidism and non-insulin dependent diabetes mellitus who presented to [facility] on 12/13/17 for scheduled left hemipelvectomy for [...] needs further assistance, the service should page [phone] (24 hours a day/7 days a week) to discuss the case. History of Present Illness: Beata Kaiser is a 52 y.o. female Hx of hypothyroidism and non-insulin dependent diabetes mellitus who presented to [facility] on 12/13/17 for scheduled left hemipelvectomy for [...] Pertinent radiology reviewed. Luis Sargent MD Pager [phone] * Hawk Jennings MD - 12/20/2017 11:12 AM CDT Associated Order(s): CONSULT REHABILITATION MEDICINE PHYSICIAN Formatting of this note may be different from the original. Physical Medicine & Rehabilitation Consult Note Date of Service: 12/20/2017 Beata Kaiser is a 52 y.o. female. : 1965 MRN# : [id number] Primary Insurance: [facility] Secondary Insurance: Tertiary Insurance: Financial Class: Commercial [...] a 52 y.o. female admitted to [facility] on 12/13/2017 with the following issues: [...] acute inpatient rehabilitation. Other recommendations Impaired gait/mobility: CRUSHER FEEDER pt was independent Currently requiring total assist Will benefit from continued work with PT to address mobility deficits Impaired ADL: CRUSHER FEEDER pt was independent Currently requiring total assist [...] concerns. Hawk Jennings MD Rehab Consult Pager: [phone] History of Present Illness Hospital Course: Beata Kaiser is a 52 yo F who presented to [facility] on 12/13/17 for scheduled left hemipelvectomy for [...] Pt has had ongoing pain issues since CARETAKER RESORT removed. Pt has been working with PT/OT for therapy needs. PM&R consulted for rehab recs for discharge planning. Pt excessively somnolent at time of exam due to pain. present bedside. Both endorse having large amount of family support at home to help once discharged from the hospital/rehab. Past Medical History Past Medical History: Diagnosis Date Anxiety Back pain Depression DM (diabetes mellitus) ([facility]) Past Surgical History Past Surgical History: Procedure [...] MINUTE (12/20 0800) SpO2: 97 % (12/20 0600) O2 Delivery: Nasal Cannula (12/20 599) SpO2 [...] 12/20/2017 6:50 AM CDT Associated Order(s): CONSULT DE ICER INSTALLER, SPEECH LANGUAGE ASSISTANT Formatting of this note may be different from the original. Inpatient Psychiatric Clinical Nurse Specialist- Initial Consult Pt. Name: Beata Kaiser Room: ED3655/ LOS: 7 Reason for consult: Patient s/p [...] are any concerns or questions. Ivette Wade [place] Pager [phone] Office [phone] * Vania Hay MD - 12/14/2017 7:33 [...] placed, anesthesia managing. Tylenol, PRN fentanyl, gabapentin, CRUSHER FEEDER buspar & wellbutrin CV: Currently HDS, no [...] -- 23.8 22.4 22.4 20.8* 19.2* 17.8* I3OOULBPL -- -- -- -- 98.8 99.2* 99.1* 99.0 99.4* 97.0 Vania Hay MD Pager: [phone] Associated attestation - Ken Carolina MD - [...] Date: 01/14/2018 Plan Anticipate pt discharging to [facility] at 3:30pm. Micki reviewed EMR and met with team. Pt is medically stable to discharge to [facility]. Interventions ? Support Support: Pt/Family Updates re:POC or DC Plan Micki updated pt regarding discharge planning. ? Info or Referral Information or Referral to Community Resources: Diagnosis-Related Community Resources ? Discharge Planning Micki spoke with Julia in admissions at [facility]. Insurance authorization has been received. Pt [...] Kaiser. Transportation Name, Phone and Availability #2: [phone]. Does the patient use Medicaid Transportation?: No ? Next Level of Care (Acute Psych discharges only) ? Discharge Disposition Durable Medical Equipment No service has been selected for the patient. Destination - Selection Complete Service Request Status Selected Specialties Address Phone Number Fax Number [facility] Selected Inpatient Rehabilitation Facility [address] [place] [address] [phone] Home Care No service has been selected [...] Informed MICKI that discussed case with medical collector as well and no concerns at this time. Per MICKI patient is getting wound vac dressing change at 1000 this morning. MICKI aware that still waiting on insurance authorization. 1359: Per Gissell (UR/CM for [facility]) patient has been approved for inpatient rehab. 1422: Notified Erika (MICKI) that rehab able to admit today. Transportation will be scheduled for 1530 via stretcher van with [facility]. MICKI to notify patient's primary RN of discharge time, rehab bed assignment of [phone] and unit phone# for report (). Please leave in any functioning IV access for transition to 's IP rehab unit. URMILA Catalan RN Inpatient Rehab Admission Nurse [phone]) * Patient Education - Amanda Juares - [...] Date: 01/11/2018 Plan Anticipate pt discharging to [facility] when medically stable. Micki reviewed EMR and met with team. Pt to have wound vac changed on W and F. Pt will need to be off all IV pain meds, and continuous fluids prior to admission at [facility]. Interventions ? Support Support: Pt/Family Updates re:POC or DC Plan Micki and HARVINDER met with pt at bedside and updated her on discharge planning and discussed DME. ? Info or Referral Information or Referral to Community Resources: Diagnosis-Related Community Resources ? Discharge Planning Micki spoke with Julia in admissions at [facility]- pt will need to participate in PT/OT daily. Looking at admission post wound vac change on Wednesday. ? Medication Needs ? Financial ? Legal ? Other Disposition ? Expected Discharge Date Expected Discharge Date: 01/14/18 ? Transportation Does the patient need discharge transport arranged?: No Transportation Name, Phone and Availability #1: Marvin Kaiser. Transportation Name, Phone and Availability #2: [phone]. Does the patient use Medicaid Transportation?: No ? Next Level of Care (Acute Psych discharges only) ? Discharge Disposition Durable Medical Equipment No service has been selected for the patient. [facility] Destination No service has been selected for the patient. Home Care No service has been selected for the patient. Dialysis/Infusion No service has been selected for the patient. Erika Werner, [facility] *[phone] * Operative Report (DICTATED ONLY) - Tamiko Luther MD - 01/11/2018 11:24 AM CDT THE [address] [address] PATIENT NAME: BEATA KAISER MR#/PT#: [id number] Page 2 OPERATIVE REPORT DATE OF OPERATION: 01/10/2018 SURGEON: Tamiko Luther MD PROGRAM PROJECT MANAGER(S): Adrienne Zarate MD PREOPERATIVE DIAGNOSIS: Draining wound, [...] none Tamiko Luther MD KJT / MEDQ /[id number] cc: - Tamiko Luther MD * Anesthesia [...] Units/ sodium bicarbonate 650 mg(#) PRN ( Wet Trimmer from Rx), simethicone Q6H PRN Diagnostic Tests [...] 52 y.o. 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 * Operative Report (DICTATED ONLY) - Spencer Purcell MD - 01/10/2018 10:06 AM CDT Formatting of this note may be different from the original. THE [address] [address] PATIENT NAME: BEATA KAISER MR#/PT#: [id number] Page 2 OPERATIVE REPORT DATE OF OPERATION: 01/10/2018 SURGEON: Spencer Purcell MD PROGRAM PROJECT MANAGER(S): Davey Dove MD PREOPERATIVE DIAGNOSIS: Chondrosarcoma. POSTOPERATIVE [...] exchanged under sterile technique for a 22- Haitian catheter with 10 mL sterile water in [...] MD Dictated by: Davey Dove MD / MEDQ /[id number] cc: - Spencer Purcell MD * Care [...] 01/07/2018 3:44 PM CDT Notified by Erika Forman (MICKI) that patient will potentially be ready for d/c on Wednesday. Per MICKI plan is for patient to get a wound vac on Wednesday. Patient continues to have the corpak (nocturnal feeds only) and GI will be consulted for further nutrition management. URMILA Catalan RN Inpatient Rehab Admission Nurse ([phone]) * Patient Education - Denise Ortega - 01/07/2018 11:52 AM CDT The patient [...] Date: 01/05/2018 Plan Anticipate pt discharging to [facility] when medically stable. Sw reviewed EMR [...] Kaiser. Transportation Name, Phone and Availability #2: [phone]. Does the patient use Medicaid Transportation?: No ? Next Level of Care (Acute Psych discharges only) ? Discharge Disposition Durable Medical Equipment No service has been selected for the patient. Destination No service has been selected for the patient. Home Care No service has been selected for the patient. Dialysis/Infusion No service has been selected for the patient. Erika Werner LMSW *[phone] * Patient Education - Jami Dejesus RN - 01/05/2018 11:52 AM CDT Beata Kaiser accepted education and was receptive. she verbalized understanding. The following was discussed: Diet and oral pain regimen. Follow up should occur as needed. Jami Dejesus RN * Case Mgmt DC Plan - Julia Yougn RN - 01/04/2018 4:38 PM CDT [phone]: Provided patient with verbal and written education re: [facility] rehab facility. 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 Enjoys fishing, doing yard work and being outdoors Goal(s): 1. Short term goals: "be as independent as possible" 2. intermediate goals: "can't think of anything" Other: 1. [...] Patient is agreeable to an admission at [facility]. URMILA Catalan RN Inpatient Rehab Admission Nurse [phone]) * Case Mgmt DC Plan - Julia [...] URMILA Catalan RN Inpatient Rehab Admission Nurse [phone]) * Patient Education - Amanda Juares - [...] (TPN) 65 mL/hr at 12/30/172027 fentaNYL (SUBLIMAZE) CARETAKER RESORT 550 mcg/ NS 55 mL infusion syr (std conc)(premade ) lactated ringers infusion Stopped (12/30/17 1440) PRN and Respiratory Meds:alum/mag hydroxide/simeth Q6H PRN, calcium carbonate Q4H PRN, diazePAM Q6H PRN, diphenhydrAMINE Q6H PRN OR [DISCONTINUED] diphenhydrAMINE Q6H PRN, fentaNYL citrate PF Q1H PRN, naloxone PRN, ondansetron (ZOFRAN) IV Q6H PRN, oxyCODONE Q3H PRN, pancrelipase 20,000 Units/ sodium bicarbonate 650 mg(#) PRN (Wet Trimmer from Rx) Diagnostic Tests Hematology: Lab Results [...] may be different from the original. THE [address] [address] PATIENT NAME: BEATA KAISER MR#/PT#: [id number] Page 3 OPERATIVE REPORT DATE OF OPERATION: 12/30/2017 SURGEON: Aimee Mccollum DO PROGRAM PROJECT MANAGER(S): DO Montez Coyne DO PREOPERATIVE DIAGNOSIS: Nonhealing [...] Dictated by: Herberth Dean DO / MEDPing /[id number] cc: - Aimee Mccollum DO * Procedures (Immed Post or Bedside) - Montez Agudelo DO - 12/30/2017 11:42 AM CDT Formatting of this note may be different from the original. Brief Operative Note Name: Beata Kaiser is a 52 y.o. female : 1965 MRN# : [id number] DATE OF OPERATION: 12/30/2017 Date: 12/30/2017 Preoperative [...] : STAPLE LINE Tissue Abdomen SURGICAL PATHOLOGY ChunAimee babcock DO 12/30/2017 1104 Complications: None Implants: None Drains: None Disposition: PACU - stable Montez Agudelo DO Pager [phone] * Case Mgmt DC Plan - Erika Werner - 12/29/2017 3:58 PM CDT Formatting of this note may be different from the original. Case Management Progress Note NAME:Beata Kaiser : AGE: 52 y.o. ADMISSION DATE: 12/13/2017 DAYS ADMITTED: LOS: 16 days Todays Date: 12/29/2017 Plan Pt to OR for colostomy tomorrow. Anticipate pt discharging to [facility] when medically stable. Sw reviewed EMR and met with team. Interventions ? Support Support: Pt/Family Updates re:POC or DC Plan Sw met with pt, pt's , and pt's daughter Mica. Pt is now interested in [facility] at discharge. ? Info or Referral ? Discharge Planning Micki called Julia in admissions at [facility]- pt is on the list for Wednesday next week. ? Medication Needs ? Financial ? Legal ? Other Disposition ? Expected Discharge Date Expected Discharge Date: 01/03/18 ? Transportation Does the patient need discharge transport arranged?: No Transportation Name, Phone and Availability #1: Marvin Kaiser. Transportation Name, Phone and Availability #2: [phone]. Does the patient use Medicaid Transportation?: No ? Next Level of Care (Acute Psych discharges only) ? Discharge Disposition Durable Medical Equipment No service has been selected for the patient. Destination No service has been selected for the patient. Home Care No service has been selected for the patient. Dialysis/Infusion No service has been selected for the patient. Erika Werner, [facility] *[phone] * Care Plan - Anita Hines [...] place. * Case Mgmt DC Plan - aPncho Werneri - 12/28/2017 2:07 PM CDT Formatting [...] No Transportation Name, Phone and Availability #1: Job Marvin. Transportation Name, Phone and Availability #2: [phone]. Does the patient use Medicaid Transportation?: No [...] Kaiser. Transportation Name, Phone and Availability #2: [phone]. Does the patient use Medicaid Transportation?: No ? Next Level of Care (Acute Psych discharges only) ? Discharge Disposition Durable Medical Equipment No service has been selected for the patient. Destination No service has been selected for the patient. Home Care No service has been selected for the patient. Dialysis/Infusion No service has been selected for the patient. Erika Werner [facility] *[phone] * Critical Results - Emely Paredes - 12/24/2017 10:48 AM CDT Critical result or procedure called (document test and value, and read back): Positive blood cultures on right arm drawn 4/5 at 1305. Gram positive cocci resembling Strep. Time MD/WASTE WATER OPERATOR Notified: 1048 MD/WASTE WATER OPERATOR Name: Dr. Zarate notified at this time MD/WASTE WATER OPERATOR Response/Orders Given: calling infectious disease to notify [...] Kaiser. Transportation Name, Phone and Availability #2: [phone]. Does the patient use Medicaid Transportation?: No ? Next Level of Care (Acute Psych discharges only) ? Discharge Disposition Durable Medical Equipment No service has been selected for the patient. [facility] Destination No service has been selected for the patient. [facility] Home Care No service has been selected for the patient. [facility] Dialysis/Infusion No service has been selected for the patient. Erika Werner [facility] *[phone] * Patient Education - Kerline Kruger [...] with pt at bedside regarding discharge planning. [facility] is out of network. provided pt with in network lists of SNF in both [place] area and near pt's home. Sw will follow up with pt tomorrow. ? Info or Referral ? Discharge Planning tasked [facility] to email list of in network facilities to Sw. ? Medication Needs ? Financial ? Legal ? Other Disposition ? Expected Discharge Date Expected Discharge Date: 12/27/17 ? Transportation Does the patient need discharge transport arranged?: No Transportation Name, Phone and Availability #1: Marvin Kaiser. Transportation Name, Phone and Availability #2: [phone]. Does the patient use Medicaid Transportation?: No [...] Alanna Robertson - 12/22/2017 2:43 PM CDT FLIGHT SUPERINTENDENT Note Emailed [facility] with a in-network list of SNF facilities per the request of ZULEIKA Redd [facility] For additional assistance please contact ZULEIKA Redd *[phone] * Patient Education - Hawk Ortega RN [...] like Sw to send a referral to [facility] in [place], as they are from there. Family has not had time to review other options. Sw faxed referral to [facility]. Address: [address] [place] [phone] Primary Sw will continue to follow for discharge planning. ? Medication Needs ? Financial ? Legal ? Other Disposition ? Expected Discharge Date Expected Discharge Date: 12/23/17 ? Transportation Does the patient need discharge transport arranged?: No Transportation Name, Phone and Availability #1: Marvin Kaiser. Transportation Name, Phone and Availability #2: [phone]. Does the patient use Medicaid Transportation?: No ? Next Level of Care (Acute Psych discharges only) ? Discharge Disposition Durable Medical Equipment No service has been selected for the patient. [facility] Destination No service has been selected for the patient. Home Care No service has been selected for the patient. Dialysis/Infusion No service has been selected for the patient. Mica Pruitt, [facility] *[phone] * Patient Education - Wilda Trivedi [...] Kaiser. Transportation Name, Phone and Availability #2: [phone]. Does the patient use Medicaid Transportation?: No ? Next Level of Care (Acute Psych discharges only) ? Discharge Disposition Durable Medical Equipment No service has been selected for the patient. [facility] Destination No service has been selected for the patient. Home Care No service has been selected for the patient. Dialysis/Infusion No service has been selected for the patient. Erika Werner, [facility] *[phone] * Care Plan - Monica Sal [...] of pain Outcome: Goal Ongoing Encourage Epidural CARETAKER RESORT Problem: Tissue Perfusion, Altered Goal: Adequate tissue [...] may be different from the original. THE [address] [address] PATIENT NAME: BEATA KAISER MR#/PT#: [id number] Page 3 OPERATIVE REPORT DATE OF OPERATION: 12/14/2017 SURGEON: Spencer uPrcell MD PROGRAM PROJECT MANAGER(S): Sarah Schwab MD PREOPERATIVE DIAGNOSIS: Left retroperitoneal/pelvic [...] with all pressure points padded. A lubricated 21-Haitian cystoscope with 21-Haitian sheath was assembled and placed in the bladder. 360 degree panendoscopy was performed. There was no masses or lesions present. There was no stone, diverticula, trabeculations, or signs of malignancy within the bladder itself. Both ureteral orifices were identified. The left ureteral orifice was intubated with a 0.38 sensor wire and advanced into the kidney. This was then intubated with a 5-Haitian Pollack catheter, which was placed over the wire and then deployed. A 16-Haitian Melchor catheter was placed in the bladder [...] subsequent muscle and cutaneous flap created. The 16-Haitian catheter, which was seen in place revealed [...] structures and alteration in anatomy. A new 20-Haitian catheter was placed in the bladder and infused with saline and found to have no evidence of extravasation. We then turned the remainder of the case over to the orthopedic surgery service. ESTIMATED BLOOD LOSS: 100 cc SPECIMENS REMOVED: None ATTESTATION I performed this procedure with a resident. Staff name: Spencer Purcell MD Date: 01/03/2018 Spencer Purcell MD SHAHBAZ / MEDQ /[id number] cc: - Spencer Purcell MD * Procedures [...] patient and/or family and/or designated Power of Die Maker. I personally accomplished the pre-operative Time Out. I was personally present for the critical portions of the procedure. I directly observed the resident physician performing other appropriate portions of the procedure, discussed the case with the resident physician, and concur with the resident physician's documentation of the procedure, unless otherwise noted. Harris Hurst MD PhD GALA FACS Surgical Critical Care Pager [phone] Date: 12/16/2017 * Operative Report (DICTATED ONLY) - Tamiko Luther MD - 12/15/2017 2:29 PM CDT [address] [address] PATIENT NAME: BEATA KAISER MR#/PT#: [id number] Page 2 OPERATIVE REPORT DATE OF OPERATION: 12/14/2017 SURGEON: Tamiko Luther MD CO-SURGEON(S): MD Aimee Brambila DO Kirk Hance, MD Axel Thors, DO PROGRAM PROJECT MANAGER(S): Adrienne Zarate MD PREOPERATIVE DIAGNOSIS: Intermediate to [...] and left hemipelvis and LE ( permanent) Tamiko Luther MD KJT / MEDQ /[id number] cc: - Tamiko Luther MD - Spencer [...] (98.2 F) (12/15 0400) Pulse: 126 (12/15 0600) Respirations: 17 PER MINUTE (12/15 07) SpO2: [...] tube QDAY before breakfast Continuous Infusions: bupivacaine CARETAKER RESORT PNC 0.125% infusion syringe HYDROmorphone (DILAUDID) CARETAKER RESORT 11 mg/NS 55mL infusion syr (std conc)(premade [...] 52 y.o. female : 1965 MRN# : [id number] DATE OF OPERATION: 12/14/2017 Date: 12/14/2017 Preoperative [...] LEFT HEMIPELVECTOMY Tissue Leg SURGICAL PATHOLOGY Tamiko Lutehr MD 12/14/2017 1654 9 : ADDITIONAL TISSUE, [...] much as possible Adrienne Zarate MD Pager [phone] Associated attestation - Tamiko Luther MD - 12/24/2017 1:37 PM CDT I performed the hemipelvectomy and hemisacrectomy with the resident. 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 POSTOPERATIVE DIAGNOSIS: Same. OPERATIVE PROCEDURE: 1. Repair of the left common and external iliac vein by direct venous repair within the abdominal cavity and pelvis (CPT code 93205). 2. Mobilization and exposure of the common [...] None. Pio Malagon DO AT / MEDQ /[id number] cc: - Pio Malagon DO * Operative Report (Direct Entry) - Spencer Purcell MD - 12/14/2017 8:36 AM CDT Formatting of this note may be different from the original. OPERATIVE REPORT Name: Beata Kaiser is a 52 y.o. female : 1965 MRN# : [id number] DATE OF OPERATION: 12/14/2017 Surgeon(s) and Role: [...] of the procedure. Darius Dejesus MD Pager [phone] ATTESTATION I performed this procedure with a resident. Staff name: Spencer Purcell MD Date: 01/03/2018 * Case Mgmt DC Kala - Andra Tejada RN - 12/13/2017 11:04 [...] with questions or concerns. Patient Address/Phone [address] [phone] (home) Emergency Contact Extended Emergency Contact Information Primary Emergency Contact: Marvin [facility] Relation: Spouse Secondary Emergency Contact: Lynn [facility] Relation: Daughter Healthcare Directive None on file. Transportation Does the patient need discharge transport arranged?: No Transportation Name, Phone and Availability #1: Marvin Kaiser. Transportation Name, Phone and Availability #2: [phone]. Does the patient use Medicaid Transportation?: No [...] Resources ? Coverage Primary Insurance: Commercial insurance ([facility] ? 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 Financial Assistance Needed? None at this time. Psychosocial Needs ? Mental Health Mental Health History: No ? Substance Use History Substance Use History Screen: No ? Other None. Current/Previous Services ? PCP Della Cuellar, , ? Pharmacy [address] [address] ? Durable Medical Equipment Durable Medical Equipment [...] In the past Name of rehab location/group: [facility]. 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 [facility] Facility/Snf SNF: No NH: No ? Inpatient Rehab IPR: No ? [facility]: No ? Acute Hospital Stay Acute Hospital Stay: In the past Was patient's stay within the last 30 days?: Yes When did patient receive care?: 2 weeks ago. Name of hospital: [facility]. Andra Tejada, RN, BSN, MSN Integrative Nurse Career Services Assistant Pager [phone] in this encounter Plan of Treatment Date [...] mass NECK REPAIR, CYSTOSCOPY, 8:00 AM CDT JAMIL PELVECTOMY 12/14/2017 Pelvic mass 8:00 AM CDT [...] MG/DL Specimen Performing Laboratory MAIN LAB [address] [place] [address] * POC GLUCOSE (01/14/2018 7:16 AM) Component Value Ref Range Glucose, POC 144 (H) 70 - 100 MG/DL Specimen Performing Laboratory MAIN LAB [address] [place] [address] * LIVER FUNCTION PANEL (01/14/2018 4:40 AM) [...] G/DL Specimen Performing Laboratory MAIN LAB [address] [place] [address] * BASIC METABOLIC PANEL (01/14/2018 4:40 AM) [...] questions. Specimen Performing Laboratory Blood MAIN LAB [address] [place] [address] * CBC (01/14/2018 4:40 AM) Component Value [...] FL Specimen Performing Laboratory Blood MAIN LAB [address] [place] [address] * POC GLUCOSE (01/14/2018 2:54 AM) Component Value Ref Range Glucose, POC 218 (H) 70 - 100 MG/DL Specimen Performing Laboratory MAIN LAB [address] [place] [address] * POC GLUCOSE (01/13/2018 9:07 PM) Component Value Ref Range Glucose, POC 125 (H) 70 - 100 MG/DL Specimen Performing Laboratory MAIN LAB [address] [place] [address] * POC GLUCOSE (01/13/2018 5:46 PM) Component Value Ref Range Glucose, POC 136 (H) 70 - 100 MG/DL Specimen Performing Laboratory MAIN LAB [address] [place] [address] * POC GLUCOSE (01/13/2018 12:09 PM) Component Value Ref Range Glucose, POC 89 70 - 100 MG/DL Specimen Performing Laboratory MAIN LAB [address] [place] [address] * POC GLUCOSE (01/13/2018 7:40 AM) Component Value Ref Range Glucose, POC 111 (H) 70 - 100 MG/DL Specimen Performing Laboratory MAIN LAB [address] [place] [address] * BASIC METABOLIC PANEL (01/13/2018 3:42 AM) [...] questions. Specimen Performing Laboratory Blood MAIN LAB [address] [place] [address] 47[address] * CBC (01/13/2018 3:42 AM) Component Value [...] - 11 FL Specimen Performing Laboratory Blood [facility] [address] [place] [address] * TRIGLYCERIDE (01/13/2018 3:42 AM) Component Value Ref Range Triglycerides 254 (H) <150 MG/DL Specimen Performing Laboratory Blood [facility] [address] [place] [address] * POC GLUCOSE (01/13/2018 2:33 AM) Component Value Ref Range Glucose, POC 200 (H) 70 - 100 MG/DL Specimen Performing Laboratory [facility] [address] [place] [address] * POC GLUCOSE (01/12/2018 10:39 PM) Component Value Ref Range Glucose, POC 87 70 - 100 MG/DL Specimen Performing Laboratory [facility] [address] [place] [address] * POC GLUCOSE (01/12/2018 5:55 PM) Component Value Ref Range Glucose, POC 107 (H) 70 - 100 MG/DL Specimen Performing Laboratory [facility] [address] [place] [address] * POC GLUCOSE (01/12/2018 12:24 PM) Component Value Ref Range Glucose, POC 67 (L) 70 - 100 MG/DL Specimen Performing Laboratory [facility] [address] [place] [address] 17492 * POC GLUCOSE (01/12/2018 7:42 AM) Component Value Ref Range Glucose, POC 141 (H) 70 - 100 MG/DL Specimen Performing Laboratory [facility] [address] [place] [address] * BASIC METABOLIC PANEL (01/12/2018 6:12 AM) [...] Pharmacist for questions. Specimen Performing Laboratory Blood [facility] [address] [place], [place] [phone] * CBC (01/12/2018 6:12 AM) Component Value [...] - 11 FL Specimen Performing Laboratory Blood [facility] [address] [place], [place] [id number] * POC GLUCOSE (01/12/2018 2:17 AM) Component Value Ref Range Glucose, POC 184 (H) 70 - 100 MG/DL Specimen Performing Laboratory [facility] [address] [place] [address] * POC GLUCOSE (01/11/2018 8:39 PM) Component Value Ref Range Glucose, POC 196 (H) 70 - 100 MG/DL Specimen Performing Laboratory [facility] [address] [place] [address] * POC GLUCOSE (01/11/2018 5:08 PM) Component Value Ref Range Glucose, POC 128 (H) 70 - 100 MG/DL Specimen Performing Laboratory [facility] [address] [place] [address] * POC GLUCOSE (01/11/2018 11:27 AM) Component Value Ref Range Glucose, POC 160 (H) 70 - 100 MG/DL Specimen Performing Laboratory [facility] [address] [place] [address] * POC GLUCOSE (01/11/2018 7:17 AM) Component Value Ref Range Glucose, POC 218 (H) 70 - 100 MG/DL Specimen Performing Laboratory MAIN LAB [address] [place] [address] * BASIC METABOLIC PANEL (01/11/2018 3:40 AM) [...] questions. Specimen Performing Laboratory Blood MAIN LAB [address] [place] [address] * CBC (01/11/2018 3:40 AM) Component Value [...] FL Specimen Performing Laboratory Blood MAIN LAB [address] [place] [address] * POC GLUCOSE (01/11/2018 3:33 AM) Component Value Ref Range Glucose, POC 199 (H) 70 - 100 MG/DL Specimen Performing Laboratory MAIN LAB [address] [place] [address] * POC GLUCOSE (01/10/2018 8:45 PM) Component Value Ref Range Glucose, POC 297 (H) 70 - 100 MG/DL Specimen Performing Laboratory [facility] [address] [place] [address] * POC GLUCOSE (01/10/2018 6:05 PM) Component Value Ref Range Glucose, POC 290 (H) 70 - 100 MG/DL Specimen Performing Laboratory [facility] [address] [place] [address] 78672 * POC GLUCOSE (01/10/2018 1:53 PM) Component Value Ref Range Glucose, POC 140 (H) 70 - 100 MG/DL Specimen Performing Laboratory [facility] [address] [place] [address] 6[address] * POC GLUCOSE (01/10/2018 10:49 AM) Component Value Ref Range Glucose, POC 87 70 - 100 MG/DL Specimen Performing Laboratory [facility] [address] [place] [address] 348[address] * FLUORO MOBILE IN OR (01/10/2018 9:51 AM) Specimen Performing Laboratory FANTA Yi This order has been auto finalized and does not contain a result. * POC GLUCOSE (01/10/2018 8:43 AM) Component Value Ref Range Glucose, POC 100 70 - 100 MG/DL Specimen Performing Laboratory [facility] [address] [place] [address] 20[address] * POC GLUCOSE (01/10/2018 8:02 AM) Component Value Ref Range Glucose, POC 101 (H) 70 - 100 MG/DL Specimen Performing Laboratory [facility] [address] [place] [address] 265[address] * POC GLUCOSE (01/10/2018 3:39 AM) Component Value Ref Range Glucose, POC 131 (H) 70 - 100 MG/DL Specimen Performing Laboratory [facility] [address] [place] [address] * TRIGLYCERIDE (01/10/2018 3:30 AM) Component Value Ref Range Triglycerides 195 (H) <150 MG/DL Specimen Performing Laboratory Blood [facility] [address] [place] [address] * BASIC METABOLIC PANEL (01/10/2018 3:30 AM) [...] questions. Specimen Performing Laboratory Blood MAIN LAB [address] [place] [address] * CBC AND DIFF (01/10/2018 3:30 AM) [...] K/UL Specimen Performing Laboratory Blood MAIN LAB [address] [place] [address] 90791 * POC GLUCOSE (01/09/2018 8:37 PM) Component Value Ref Range Glucose, POC 150 (H) 70 - 100 MG/DL Specimen Performing Laboratory MAIN LAB [address] [place] [address] 29163 * POC GLUCOSE (01/09/2018 7:37 PM) Component Value Ref Range Glucose, POC 135 (H) 70 - 100 MG/DL Specimen Performing Laboratory [facility] [address] [place] [address] * POC GLUCOSE (01/09/2018 6:20 PM) Component Value Ref Range Glucose, POC 135 (H) 70 - 100 MG/DL Specimen Performing Laboratory [facility] [address] [place] [address] * FREE T4 (FREE THYROXINE) ONLY (01/09/2018 1:40 PM) Component Value Ref Range T4-Free 0.9 0.6 - 1.6 NG/DL Specimen Performing Laboratory Blood [facility] [address] [place], [place] [phone] * THYROID STIMULATING HORMONE-TSH (01/09/2018 1:40 PM) Component Value Ref Range TSH 16.790 (H) 0.35 - 5.00 MCU/ML Specimen Performing Laboratory Blood [facility] [address] [place] [address] 28798 * POC GLUCOSE (01/09/2018 1:25 PM) Component Value Ref Range Glucose, POC 102 (H) 70 - 100 MG/DL Specimen Performing Laboratory [facility] [address] [place], [place] [phone] * POC GLUCOSE (01/09/2018 8:12 AM) Component Value Ref Range Glucose, POC 150 (H) 70 - 100 MG/DL Specimen Performing Laboratory [facility] [address] [place], [place] [phone] * BASIC METABOLIC PANEL (01/09/2018 3:17 AM) [...] questions. Specimen Performing Laboratory Blood MAIN LAB [address] [place] [address] 22144 * CBC AND DIFF (01/09/2018 3:17 AM) [...] K/UL Specimen Performing Laboratory Blood MAIN LAB [address] [place] [address] * POC GLUCOSE (01/09/2018 3:14 AM) Component Value Ref Range Glucose, POC 154 (H) 70 - 100 MG/DL Specimen Performing Laboratory MAIN LAB [address] [place] [address] 03278 * POC GLUCOSE (01/08/2018 9:01 PM) Component Value Ref Range Glucose, POC 240 (H) 70 - 100 MG/DL Specimen Performing Laboratory MAIN LAB [address] [place] [address] 64868 * POC GLUCOSE (01/08/2018 6:20 PM) Component Value Ref Range Glucose, POC 123 (H) 70 - 100 MG/DL Specimen Performing Laboratory MAIN LAB [address] [place] [address] * POC GLUCOSE (01/08/2018 12:47 PM) Component Value Ref Range Glucose, POC 214 (H) 70 - 100 MG/DL Specimen Performing Laboratory MAIN LAB [address] [place] [address] * POC GLUCOSE (01/08/2018 7:49 AM) Component Value Ref Range Glucose, POC 113 (H) 70 - 100 MG/DL Specimen Performing Laboratory MAIN LAB [address] [place] [address]1987 * BASIC METABOLIC PANEL (01/08/2018 3:22 AM) [...] Pharmacist for questions. Specimen Performing Laboratory Blood [facility] [address] [place] [address] 59867 * CBC AND DIFF (01/08/2018 3:22 AM) [...] - 0.20 K/UL Specimen Performing Laboratory Blood [facility] [address] [place], [place] [id number] * POC GLUCOSE (01/08/2018 3:17 AM) Component Value Ref Range Glucose, POC 108 (H) 70 - 100 MG/DL Specimen Performing Laboratory [place] [id number] * POC GLUCOSE (01/07/2018 8:35 PM) Component Value Ref Range Glucose, POC 149 (H) 70 - 100 MG/DL Specimen Performing Laboratory [place] [id number] * POC GLUCOSE (01/07/2018 6:38 PM) Component Value Ref Range Glucose, POC 85 70 - 100 MG/DL Specimen Performing Laboratory [place] [id number] * POC GLUCOSE (01/07/2018 1:40 PM) Component Value Ref Range Glucose, POC 83 70 - 100 MG/DL Specimen Performing Laboratory [place] [id number] * POC GLUCOSE (01/07/2018 8:05 AM) Component Value Ref Range Glucose, POC 131 (H) 70 - 100 MG/DL Specimen Performing Laboratory [facility] [address] [place], [place] [phone] * POC GLUCOSE (01/07/2018 3:04 AM) Component Value Ref Range Glucose, POC 173 (H) 70 - 100 MG/DL Specimen [place] [address] * LIVER FUNCTION PANEL (01/07/2018 3:02 AM) [...] Specimen Performing Laboratory Blood MAIN LAB [address] [place] [address] * BASIC METABOLIC PANEL (01/07/2018 3:02 AM) [...] Specimen Performing Laboratory Blood MAIN LAB [address] [place] [address] * CBC AND DIFF (01/07/2018 3:02 AM) [...] Performing Laboratory Blood [facility] MAIN LAB [address] [place] [address] * POC GLUCOSE (01/06/2018 9:49 PM) Component Value Ref Range Glucose, POC 204 (H) 70 - 100 MG/DL Specimen Performing Laboratory [facility] MAIN [facility] [address] [place] [address] * POC GLUCOSE (01/06/2018 5:24 PM) Component Value Ref Range Glucose, POC 223 (H) 70 - 100 MG/DL Specimen Performing Laboratory MAIN LAB [address] [place] [address] 27320 * POC GLUCOSE (01/06/2018 1:11 PM) Component Value Ref Range Glucose, POC 99 70 - 100 MG/DL Specimen Performing Laboratory MAIN LAB [address] [place] [address] * CT ABD/PELV WO CONTRAST (01/06/2018 11:43 [...] MG/DL Specimen Performing Laboratory MAIN LAB [address] [place] [address] * POC GLUCOSE (01/06/2018 2:58 AM) Component Value Ref Range Glucose, POC 194 (H) 70 - 100 MG/DL Specimen Performing Laboratory MAIN LAB [address] [place] [address] * BASIC METABOLIC PANEL (01/06/2018 2:52 AM) [...] Specimen Performing Laboratory Blood MAIN LAB [address] [place] [address] * CBC AND DIFF (01/06/2018 2:52 AM) [...] - 0.20 K/UL Specimen Performing Laboratory Blood [facility] [address] [place], [place] [id number] * TRIGLYCERIDE (01/06/2018 2:52 AM) Component Value Ref Range Triglycerides 243 (H) <150 MG/DL Specimen Performing Laboratory Blood [facility] [address] [place], [place] [id number] * POC GLUCOSE (01/05/2018 9:38 PM) Component Value Ref Range Glucose, POC 276 (H) 70 - 100 MG/DL Specimen Performing Laboratory [facility] [address] [place], [place] [id number] * POC GLUCOSE (01/05/2018 5:33 PM) Component Value Ref Range Glucose, POC 248 (H) 70 - 100 MG/DL Specimen Performing Laboratory [facility] [address] [place], [place] [phone] * POC GLUCOSE (01/05/2018 12:22 PM) Component Value Ref Range Glucose, POC 194 (H) 70 - 100 MG/DL Specimen Performing Laboratory [facility] [address] [place], [place] [phone] * POC GLUCOSE (01/05/2018 7:52 AM) Component Value Ref Range Glucose, POC 265 (H) 70 - 100 MG/DL Specimen Performing Laboratory [facility] [address] [place] [address] * BASIC METABOLIC PANEL (01/05/2018 3:04 AM) [...] questions. Specimen Performing Laboratory Blood MAIN LAB [address] [place] [address] * CBC AND DIFF (01/05/2018 3:04 AM) [...] - 0.20 K/UL Specimen Performing Laboratory Blood [facility] [address] [place] [address] 64137 * POC GLUCOSE (01/05/2018 2:44 AM) Component Value Ref Range Glucose, POC 279 (H) 70 - 100 MG/DL Specimen Performing Laboratory [facility] [address] [place] [address] 15727 * POC GLUCOSE (01/04/2018 8:58 PM) Component Value Ref Range Glucose, POC 325 (H) 70 - 100 MG/DL Specimen Performing Laboratory MAIN LAB [address] [place] [address] 60986 * POC GLUCOSE (01/04/2018 3:22 PM) Component Value Ref Range Glucose, POC 278 (H) 70 - 100 MG/DL Specimen Performing Laboratory MAIN LAB [address] [place] [address] 34723 * ALBUMIN (01/04/2018 11:55 AM) Component Value Ref Range Albumin 2.2 (L) 3.5 - 5.0 G/DL Specimen Performing Laboratory Blood MAIN LAB [address] [place] [address] * PREALBUMIN (01/04/2018 11:55 AM) Component Value Ref Range Prealbumin 18.0 17 - 34 MG/DL Specimen Performing Laboratory Blood MAIN LAB [address] [place] [address] * POC GLUCOSE (01/04/2018 7:50 AM) Component Value Ref Range Glucose, POC 233 (H) 70 - 100 MG/DL Specimen Performing Laboratory MAIN LAB [address] [place] [address] 6[address] * BASIC METABOLIC PANEL (01/04/2018 2:45 AM) [...] Specimen Performing Laboratory Blood MAIN LAB [address] [place] [address] * CBC (01/04/2018 2:45 AM) Component Value [...] - 11 FL Specimen Performing Laboratory Blood [facility] [address] [place] [address] 89188 * POC GLUCOSE (01/04/2018 2:39 AM) Component Value Ref Range Glucose, POC 208 (H) 70 - 100 MG/DL Specimen Performing Laboratory [facility] [address] [place] [address] 36666 * POC GLUCOSE (01/03/2018 8:21 PM) Component Value Ref Range Glucose, POC 255 (H) 70 - 100 MG/DL Specimen Performing Laboratory [facility] [address] [place] [address] 87700 * POC GLUCOSE (01/03/2018 4:53 PM) Component Value Ref Range Glucose, POC 221 (H) 70 - 100 MG/DL Specimen Performing Laboratory [facility] [address] [place] [address] 46972 * POC GLUCOSE (01/03/2018 2:44 PM) Component Value Ref Range Glucose, POC 168 (H) 70 - 100 MG/DL Specimen Performing Laboratory [facility] [address] [place] [address] 46278 * POC GLUCOSE (01/03/2018 7:51 AM) Component Value Ref Range Glucose, POC 119 (H) 70 - 100 MG/DL Specimen Performing Laboratory [facility] [address] [place] [address] 52001 * TRIGLYCERIDE (01/03/2018 5:10 AM) Component Value Ref Range Triglycerides 263 (H) <150 MG/DL Specimen Performing Laboratory Blood [facility] [address] [place], [place] [phone] * BASIC METABOLIC PANEL (01/03/2018 5:10 AM) [...] questions. Specimen Performing Laboratory Blood MAIN LAB [address] [place] [address] 8[address]39 * CBC (01/03/2018 5:10 AM) Component Value [...] - 11 FL Specimen Performing Laboratory Blood [facility] [address] [place] [address] 69069 * MAGNESIUM (01/03/2018 5:10 AM) Component Value Ref Range Magnesium 1.8 1.6 - 2.6 mg/dL Specimen Performing Laboratory Blood [facility] [address] [place] [address] 07976 * PHOSPHORUS (01/03/2018 5:10 AM) Component Value Ref Range Phosphorus 2.2 2.0 - 4.0 MG/DL Specimen Performing Laboratory Blood [facility] [address] [place] [address] 62605 * POC GLUCOSE (01/03/2018 2:00 AM) Component Value Ref Range Glucose, POC 236 (H) 70 - 100 MG/DL Specimen Performing Laboratory [facility] [address] [place] [address] 11551 * POC GLUCOSE (01/02/2018 10:44 PM) Component Value Ref Range Glucose, POC 302 (H) 70 - 100 MG/DL Specimen Performing Laboratory [facility] [address] [place] [address] 81039 * POC GLUCOSE (01/02/2018 8:28 PM) Component Value Ref Range Glucose, POC 317 (H) 70 - 100 MG/DL Specimen Performing Laboratory [facility] [address] [place] [address] 88645 * ECG-SCAN (01/02/2018 7:45 PM) Narrative Ordered by an unspecified provider. * POC GLUCOSE (01/02/2018 5:35 PM) Component Value Ref Range Glucose, POC 242 (H) 70 - 100 MG/DL Specimen Performing Laboratory MAIN LAB [address] [place] [address] * POC GLUCOSE (01/02/2018 12:30 PM) Component Value Ref Range Glucose, POC 315 (H) 70 - 100 MG/DL Specimen Performing Laboratory MAIN LAB [address] [place] [address] * THYROID STIMULATING HORMONE-TSH (01/02/2018 9:45 AM) Component Value Ref Range TSH 12.590 (H) 0.35 - 5.00 MCU/ML Specimen Performing Laboratory Blood MAIN LAB [address] [place] [address] * CREATININE-URINE RANDOM (01/02/2018 9:45 AM) Component Value Ref Range Creatinine, Random 20 MG/DL Specimen Performing Laboratory Urine MAIN LAB [address] [place] [address] * SODIUM-URINE RANDOM (01/02/2018 9:45 AM) Component Value Ref Range Sodium, Random 15 MMOL/L Specimen Performing Laboratory Urine [facility] [address] [place] [address] * POC GLUCOSE (01/02/2018 7:49 AM) Component Value Ref Range Glucose, POC 280 (H) 70 - 100 MG/DL Specimen Performing Laboratory [facility] [address] [place] [address] * BASIC METABOLIC PANEL (01/02/2018 3:25 AM) [...] Pharmacist for questions. Specimen Performing Laboratory Blood [facility] [address] [place] [address] 50873 * CBC (01/02/2018 3:25 AM) Component Value [...] - 11 FL Specimen Performing Laboratory Blood [facility] [address] [place] [address] 53497 * MAGNESIUM (01/02/2018 3:25 AM) Component Value Ref Range Magnesium 1.9 1.6 - 2.6 mg/dL Specimen Performing Laboratory Blood [facility] [address] [place] [address] 77866 * PHOSPHORUS (01/02/2018 3:25 AM) Component Value Ref Range Phosphorus 1.7 (L) 2.0 - 4.0 MG/DL Specimen Performing Laboratory Blood [facility] [address] [place] [address] 66453 * POC GLUCOSE (01/02/2018 2:11 AM) Component Value Ref Range Glucose, POC 288 (H) 70 - 100 MG/DL Specimen Performing Laboratory [facility] [address] [place] [address] 50401 * POC GLUCOSE (01/01/2018 9:15 PM) Component Value Ref Range Glucose, POC 289 (H) 70 - 100 MG/DL Specimen Performing Laboratory [facility] [address] [place] [address] 43587 * POC GLUCOSE (01/01/2018 5:48 PM) Component Value Ref Range Glucose, POC 284 (H) 70 - 100 MG/DL Specimen Performing Laboratory [facility] [address] [place] [address] 71984 * POC GLUCOSE (01/01/2018 4:12 PM) Component Value Ref Range Glucose, POC 354 (H) 70 - 100 MG/DL Specimen Performing Laboratory MAIN LAB [address] [place] [address] * POC GLUCOSE (01/01/2018 1:36 PM) Component Value Ref Range Glucose, POC 386 (H) 70 - 100 MG/DL Specimen Performing Laboratory MAIN LAB [address] [place] [address] * POC GLUCOSE (01/01/2018 8:54 AM) Component Value Ref Range Glucose, POC 363 (H) 70 - 100 MG/DL Specimen Performing Laboratory MAIN LAB [address] [place] [address] * BASIC METABOLIC PANEL (01/01/2018 5:15 AM) [...] questions. Specimen Performing Laboratory Blood MAIN LAB [address] [place] [address] 60[address] * CBC (01/01/2018 5:15 AM) Component Value [...] FL Specimen Performing Laboratory Blood MAIN LAB [address] [place] [address] * MAGNESIUM (01/01/2018 5:15 AM) Component Value Ref Range Magnesium 2.0 1.6 - 2.6 mg/dL Specimen Performing Laboratory Blood [facility] [address] [place] [address] * PHOSPHORUS (01/01/2018 5:15 AM) Component Value Ref Range Phosphorus 2.9 2.0 - 4.0 MG/DL Specimen Performing Laboratory Blood [facility] [address] [place] [address] * POC GLUCOSE (01/01/2018 2:17 AM) Component Value Ref Range Glucose, POC 330 (H) 70 - 100 MG/DL Specimen Performing Laboratory [facility] [address] [place] [address] * TRANSFUSE RBC'S NON-BLEEDING PT (01/01/2018 2:11 AM) Specimen Performing Laboratory Blood * TRANSFUSE RBC'S NON-BLEEDING PT (01/01/2018 2:11 AM) Specimen Performing Laboratory Blood * POC GLUCOSE (12/31/2017 11:44 PM) Component Value Ref Range Glucose, POC 326 (H) 70 - 100 MG/DL Specimen Performing Laboratory [facility] [address] [place] [address] * POC GLUCOSE (12/31/2017 8:58 PM) Component Value Ref Range Glucose, POC 283 (H) 70 - 100 MG/DL Specimen Performing Laboratory [facility] [address] [place] [address] * TRANSFUSE RBC'S NON-BLEEDING PT (12/31/2017 6:22 PM) Specimen Performing Laboratory Blood * TRANSFUSE RBC'S NON-BLEEDING PT (12/31/2017 6:22 PM) Specimen Performing Laboratory Blood * POC GLUCOSE (12/31/2017 5:32 PM) Component Value Ref Range Glucose, POC 274 (H) 70 - 100 MG/DL Specimen Performing Laboratory MAIN LAB [address] [place] [address] * TROPONIN-I (12/31/2017 4:57 PM) Component Value Ref Range Troponin-I 0.01 0.0 - 0.05 NG/ML Specimen Performing Laboratory Blood MAIN LAB [address] [place] [address] * POC GLUCOSE (12/31/2017 1:59 PM) Component Value Ref Range Glucose, POC 299 (H) 70 - 100 MG/DL Specimen Performing Laboratory MAIN LAB [address] [place] [address] * TRANSFUSE RBC'S BLEEDING PT OR EXCHANGE TRANSFUSION (12/31/2017 1:15 PM) Specimen Performing Laboratory Blood * TRANSFUSE RBC'S BLEEDING PT OR EXCHANGE TRANSFUSION (12/31/2017 1:15 PM) Specimen Performing Laboratory Blood * POC GLUCOSE (12/31/2017 11:56 AM) Component Value Ref Range Glucose, POC 268 (H) 70 - 100 MG/DL Specimen Performing Laboratory MAIN LAB [address] [place] [id number] * BASIC METABOLIC PANEL (12/31/2017 10:10 AM) [...] Specimen Performing Laboratory Blood MAIN LAB [address] [place] [address] * CBC (12/31/2017 10:10 AM) Component Value [...] FL Specimen Performing Laboratory Blood MAIN LAB [address] [place] [address] * POC GLUCOSE (12/31/2017 8:49 AM) Component Value Ref Range Glucose, POC 351 (H) 70 - 100 MG/DL Specimen Performing Laboratory MAIN LAB [address] [place] [address] * POC GLUCOSE (12/31/2017 7:53 AM) Component Value Ref Range Glucose, POC 297 (H) 70 - 100 MG/DL Specimen Performing Laboratory MAIN LAB [address] [place] [address] * BASIC METABOLIC PANEL (12/31/2017 3:30 AM) [...] for questions. Specimen Performing Laboratory MAIN LAB [address] [place] [address] * MAGNESIUM (12/31/2017 3:30 AM) Component Value Ref Range Magnesium 2.0 1.6 - 2.6 mg/dL Specimen Performing Laboratory Blood MAIN LAB [address] [place] [address] * PHOSPHORUS (12/31/2017 3:30 AM) Component Value Ref Range Phosphorus 4.1 (H) 2.0 - 4.0 MG/DL Specimen Performing Laboratory Blood [facility] MAIN LAB [address] [place] [address] * POC GLUCOSE (12/31/2017 3:17 AM) Component Value Ref Range Glucose, POC 253 (H) 70 - 100 MG/DL Specimen Performing Laboratory [facility] [address] [place] [address] * POC GLUCOSE (12/31/2017 1:37 AM) Component Value Ref Range Glucose, POC 249 (H) 70 - 100 MG/DL Specimen Performing Laboratory [facility] [address] [place], [place] [id number] * POC GLUCOSE (12/30/2017 9:57 PM) Component Value Ref Range Glucose, POC 211 (H) 70 - 100 MG/DL Specimen Performing Laboratory [facility] [address] [place] [address] * POC GLUCOSE (12/30/2017 5:57 PM) Component Value Ref Range Glucose, POC 207 (H) 70 - 100 MG/DL Specimen Performing Laboratory [facility] [address] [place] [address] * POC GLUCOSE (12/30/2017 12:35 PM) Component Value Ref Range Glucose, POC 173 (H) 70 - 100 MG/DL Specimen Performing Laboratory [facility] [address] [place] [address] * SURGICAL PATHOLOGY (12/30/2017 11:56 AM) Component Value Ref Range PATHOLOGY REPORT [facility] [email or web address] Department of Pathology and Laboratory Medicine [address] [place] [address] Surgical Pathology Office:[phone]:[phone] SURGICAL PATHOLOGY REPORT NAME: BEATA KAISER SURG PATH #: [id number] MR #: [id number] SPECIMEN CLASS: [facility] BILLING #: [id number] ALT ID #:LOCATION: [id number] DATE OF PROCEDURE: [...] material indicated in this report. +++ +++ [facility]/12/30/2017 ################################################## ###################### Material Received: A: staple line History: 52-year-old female with a history of pelvic mass. Gross Description: A. Received in formalin, labeled patient's name and "staple line" and regular, unoriented portion of soft tissue containing metallic ceci measuring 6.4 cm in length. The ceci are removed and the specimen is entirely submitted in cassettes [id number].([facility]) [facility]/12/30/2017 Specimen Performing Laboratory LAB RESULTS * POC GLUCOSE (12/30/2017 9:45 AM) Component Value Ref Range Glucose, POC 184 (H) 70 - 100 MG/DL Specimen Performing Laboratory MAIN LAB [address] [place] [address] * TYPE & CROSSMATCH (12/30/2017 8:50 AM) Component Value Ref Range Units Ordered 4 Crossmatch Expires 01/02/2018 Record Check FOUND ABO/RH(D) A POS Antibody Screen NEG Electronic Crossmatch YES Unit Number [id number] Blood Component Type RBC,ADSOL,LEUKO REDUCED Unit Division 0 Status OF Unit REL FROM ALLOC Transfusion Status OK TO TRANSFUSE Crossmatch Result COMPATIBLE,ELECTRONIC Unit Number [id number] Blood Component Type RBC,ADSOL,LEUKO REDUCED Unit Division 0 Status OF Unit REL FROM ALLOC Transfusion Status OK TO TRANSFUSE Crossmatch Result COMPATIBLE,ELECTRONIC Unit Number [id number] Blood Component Type RBC,ADSOL,LEUKO REDUCED Unit Division 0 Status OF Unit TRANSFUSED Transfusion Status OK TO TRANSFUSE Crossmatch Result COMPATIBLE,ELECTRONIC Unit Number [id number] Blood Component Type RBC,ADSOL,LEUKO REDUCED,2ND CONT. Unit Division 0 Status OF Unit TRANSFUSED Transfusion Status OK TO TRANSFUSE Crossmatch Result COMPATIBLE,ELECTRONIC Specimen Performing Laboratory Blood MAIN LAB [address] [place], [place] [id number] * CBC AND DIFF (12/30/2017 8:35 AM) [...] K/UL Specimen Performing Laboratory Blood MAIN LAB [address] [place] [address] * TRIGLYCERIDE (12/30/2017 4:58 AM) Component Value Ref Range Triglycerides 198 (H) <150 MG/DL Specimen Performing Laboratory Blood MAIN LAB [address] [place], [place] [id number] * MAGNESIUM (12/30/2017 4:58 AM) Component Value Ref Range Magnesium 2.0 1.6 - 2.6 mg/dL Specimen Performing Laboratory Blood MAIN LAB [address] [place] [address] * PHOSPHORUS (12/30/2017 4:58 AM) Component Value Ref Range Phosphorus 4.1 (H) 2.0 - 4.0 MG/DL Specimen Performing Laboratory Blood MAIN LAB [address] [place] [address] * COMPREHENSIVE METABOLIC PANEL (12/30/2017 4:58 AM) [...] Specimen Performing Laboratory Blood MAIN LAB [address] [place] [address] * POC GLUCOSE (12/30/2017 3:57 AM) Component Value Ref Range Glucose, POC 160 (H) 70 - 100 MG/DL Specimen Performing Laboratory MAIN LAB [address] [place] [address] * POC GLUCOSE (12/29/2017 9:08 PM) Component Value Ref Range Glucose, POC 267 (H) 70 - 100 MG/DL Specimen Performing Laboratory MAIN LAB [address] [place] [address] * POC GLUCOSE (12/29/2017 6:40 PM) Component Value Ref Range Glucose, POC 373 (H) 70 - 100 MG/DL Specimen Performing Laboratory MAIN LAB [address] [place], [place] [id number] * POC GLUCOSE (12/29/2017 5:41 PM) Component Value Ref Range Glucose, POC 335 (H) 70 - 100 MG/DL Specimen Performing Laboratory MAIN LAB [address] [place], [place] [id number] * POC GLUCOSE (12/29/2017 11:56 AM) Component Value Ref Range Glucose, POC 281 (H) 70 - 100 MG/DL Specimen Performing Laboratory MAIN LAB [address] [place], [place] [id number] * POC GLUCOSE (12/29/2017 8:18 AM) Component Value Ref Range Glucose, POC 233 (H) 70 - 100 MG/DL Specimen Performing Laboratory [facility] [address] [place] [address] * TYPE & SCREEN (NOT CROSSMATCH ELIGIBLE) (12/29/2017 4:51 AM) Component Value Ref Range ABO/RH(D) A POS Antibody Screen NEG Blood Component Type RED CELL GROUP Specimen Performing Laboratory Blood, venous - Blood [facility] [address] [place] [address] * BASIC METABOLIC PANEL (12/29/2017 4:51 AM) [...] Pharmacist for questions. Specimen Performing Laboratory Blood [facility] [address] [place] [address] * CBC AND DIFF (12/29/2017 4:51 AM) [...] 7.0 K/UL Manual Specimen Performing Laboratory Blood [facility] [address] [place] [address] * POC GLUCOSE (12/29/2017 3:43 AM) Component Value Ref Range Glucose, POC 259 (H) 70 - 100 MG/DL Specimen Performing Laboratory [facility] [address] [place] [address] * POC GLUCOSE (12/28/2017 8:23 PM) Component Value Ref Range Glucose, POC 280 (H) 70 - 100 MG/DL Specimen Performing Laboratory [facility] [address] [place] [address] * POC GLUCOSE (12/28/2017 5:44 PM) Component Value Ref Range Glucose, POC 363 (H) 70 - 100 MG/DL Specimen Performing Laboratory [facility] [address] [place] [address] * OSMOLALITY-URINE RANDOM (12/28/2017 5:18 PM) Component Value Ref Range Osmolality-Urine 366 50 - 1,400 MOS/KG Specimen Performing Laboratory Urine [facility] [address] [place] [address] 9[address]36 * SODIUM-URINE RANDOM (12/28/2017 5:18 PM) Component Value Ref Range Sodium, Random 28 MMOL/L Specimen Performing Laboratory Urine [facility] [address] [place] [address] * CULTURE-URINE W/SENSITIVITY (12/28/2017 5:18 PM) Component Value Ref Range Battery Name URINE CULTURE Specimen Description URINE,INDWELLING CATH Special Requests NONE Culture NO GROWTH Report Status FINAL 12/29/2017 Specimen Performing Laboratory Urine - [place] [address] * URINALYSIS, MICROSCOPIC (12/28/2017 5:18 PM) Component Value Ref Range WBCs,UA 10-20 0 - 2 /HPF RBCs,UA 10-20 0 - 3 /HPF MucousUA TRACE Bacteria,UA FEW (A) NEG-NEG Squamous Epithelial Cells 0-2 0 - 5 Budding Yeast FEW Specimen Performing Laboratory Urine [address] [address] * URINALYSIS DIPSTICK (12/28/2017 5:18 PM) Component Value Ref Range Color,UA YELLOW Turbidity,UA CLEAR CLEAR-CLEAR Specific Conway-Urine 1.015 1.003 - 1.035 pH,UA 5.0 5.0 - 8.0 Protein,UA NEG NEG-NEG Glucose,UA 3+ (A) NEG-NEG Ketones,UA NEG NEG-NEG Bilirubin,UA NEG NEG-NEG Blood,UA 1+ (A) NEG-NEG Urobilinogen,UA NORMAL NORM-NORMAL Nitrite,UA NEG NEG-NEG Leukocytes,UA 2+ (A) NEG-NEG Urine Ascorbic Acid, UA NEG NEG-NEG Specimen Performing [place] [address] * POC GLUCOSE (12/28/2017 1:50 PM) Component Value Ref Range Glucose, POC 281 (H) 70 - 100 MG/DL Specimen Performing Laboratory [facility] [address] [place] [address] * POC GLUCOSE (12/28/2017 12:01 PM) Component Value Ref Range Glucose, POC 343 (H) 70 - 100 MG/DL Specimen Performing Laboratory [facility] [address] [place] [address] * PATHOLOGY INTEROPERATIVE REPORT SCAN (12/28/2017 9:36 AM) Narrative Ordered by an unspecified provider. * PATHOLOGY INTEROPERATIVE REPORT SCAN (12/28/2017 9:36 AM) Narrative Ordered by an unspecified provider. * POC GLUCOSE (12/28/2017 7:54 AM) Component Value Ref Range Glucose, POC 187 (H) 70 - 100 MG/DL Specimen Performing Laboratory MAIN LAB [address] [place] [address] * ABDOMEN AP ONLY (12/28/2017 5:27 AM) [...] on 12/28/2017 8:27 AM. Dictated by Xavier eLa M.D. on 12/28/2017 8:26 AM. * HEMOGLOBIN A1C (12/28/2017 4:00 AM) Component Value Ref Range Hemoglobin A1C 6.5 (H) 4.0 - 6.0 % Comment: The ADA recommends that most patients with type 1 and type 2 diabetes maintain an A1c level <7%. Specimen Performing Laboratory MAIN LAB [address] [place] [address] * OSMOLALITY (12/28/2017 4:00 AM) Component Value Ref Range Osmolality 283 280 - 307 MOSMOL/KG Specimen Performing Laboratory MAIN LAB [address] [place] [address] * BASIC METABOLIC PANEL (12/28/2017 4:00 AM) [...] Specimen Performing Laboratory Blood MAIN LAB [address] [place] [address] * CBC AND DIFF (12/28/2017 4:00 AM) [...] K/UL Specimen Performing Laboratory Blood MAIN LAB [address] [place] [address] * POC GLUCOSE (12/28/2017 3:27 AM) Component Value Ref Range Glucose, POC 168 (H) 70 - 100 MG/DL Specimen Performing Laboratory MAIN LAB [address] [place] [address] * POC GLUCOSE (12/28/2017 3:14 AM) Component Value Ref Range Glucose, POC 167 (H) 70 - 100 MG/DL Specimen Performing Laboratory MAIN LAB [address] [place] [address] * POC GLUCOSE (12/27/2017 9:28 PM) Component Value Ref Range Glucose, POC 234 (H) 70 - 100 MG/DL Specimen Performing Laboratory MAIN LAB [address] [place] [address] * ABDOMEN AP ONLY (12/27/2017 7:52 PM) [...] the mid abdomen is included in the [id number]. Surgical defect in the left abdominal wall [...] the mid abdomen is included in the [id number]. Surgical defect in the left abdominal wall [...] 100 MG/DL Specimen Performing Laboratory MAIN LAB [address] [place] [address] * POC GLUCOSE (12/27/2017 11:52 AM) Component Value Ref Range Glucose, POC 143 (H) 70 - 100 MG/DL Specimen Performing Laboratory MAIN LAB [address] [place], [place] [phone] * POC GLUCOSE (12/27/2017 7:39 AM) Component Value Ref Range Glucose, POC 193 (H) 70 - 100 MG/DL Specimen Performing Laboratory MAIN LAB [address] [place] [address] * VANCOMYCIN TROUGH (12/27/2017 5:33 AM) Component Value Ref Range Vancomycin Trough 23.2 (H) 10.0 - 20.0 MCG/ML Specimen Performing Laboratory Blood, venous - Blood MAIN LAB [address] [place] [address] * BASIC METABOLIC PANEL (12/27/2017 4:31 AM) [...] questions. Specimen Performing Laboratory Blood MAIN LAB [address] [place] [address] * CBC AND DIFF (12/27/2017 4:31 AM) [...] K/UL Specimen Performing Laboratory Blood MAIN LAB [address] [place] [address] * POC GLUCOSE (12/27/2017 2:35 AM) Component Value Ref Range Glucose, POC 176 (H) 70 - 100 MG/DL Specimen Performing Laboratory MAIN LAB [address] [place] [address] * POC GLUCOSE (12/26/2017 9:25 PM) Component Value Ref Range Glucose, POC 304 (H) 70 - 100 MG/DL Specimen Performing Laboratory MAIN LAB [address] [place] [address] * POC GLUCOSE (12/26/2017 5:42 PM) Component Value Ref Range Glucose, POC 215 (H) 70 - 100 MG/DL Specimen Performing Laboratory MAIN LAB [address] [place] [address]67 * POC GLUCOSE (12/26/2017 1:20 PM) Component Value Ref Range Glucose, POC 312 (H) 70 - 100 MG/DL Specimen Performing Laboratory MAIN LAB [address] [place] [address] 244[address] * POC GLUCOSE (12/26/2017 8:31 AM) Component Value Ref Range Glucose, POC 219 (H) 70 - 100 MG/DL Specimen Performing Laboratory MAIN LAB [address] [place] [address] * PHOSPHORUS (12/26/2017 4:01 AM) Component Value Ref Range Phosphorus 2.1 2.0 - 4.0 MG/DL Specimen Performing Laboratory [facility] [address] [place] [address] * MAGNESIUM (12/26/2017 4:01 AM) Component Value Ref Range Magnesium 2.0 1.6 - 2.6 mg/dL Specimen Performing Laboratory [facility] [address] [place] [address] * BASIC METABOLIC PANEL (12/26/2017 4:01 AM) [...] Pharmacist for questions. Specimen Performing Laboratory Blood [facility] [address] [place], [place] [phone] * CBC AND DIFF (12/26/2017 4:01 AM) [...] - 0.20 K/UL Specimen Performing Laboratory Blood [facility] [address] [place], [place] [phone] * POC GLUCOSE (12/26/2017 1:28 AM) Component Value Ref Range Glucose, POC 217 (H) 70 - 100 MG/DL Specimen Performing Laboratory [address] [address] * POC GLUCOSE (12/25/2017 8:35 PM) Component Value Ref Range Glucose, POC 367 (H) 70 - 100 MG/DL Specimen Performing Laboratory [address] [address] * POC GLUCOSE (12/25/2017 5:19 PM) Component Value Ref Range Glucose, POC 292 (H) 70 - 100 MG/DL Specimen Performing Laboratory [facility] [address] [place] [address] * POC GLUCOSE (12/25/2017 12:02 PM) Component Value Ref Range Glucose, POC 306 (H) 70 - 100 MG/DL Specimen Performing Laboratory [address] [address] * POC GLUCOSE (12/25/2017 9:01 AM) Component Value Ref Range Glucose, POC 261 (H) 70 - 100 MG/DL Specimen Performing Laboratory [facility] MAIN LAB [address] [place] [address] [place] [address] * CT PELVIS WO CONTRAST (12/25/2017 8:47 [...] MCG/ML Specimen Performing Laboratory MAIN LAB [address] [place] [address] * BASIC METABOLIC PANEL (12/25/2017 4:42 AM) [...] questions. Specimen Performing Laboratory Blood MAIN LAB [address] [place] [address] * CBC AND DIFF (12/25/2017 4:42 AM) [...] K/UL Specimen Performing Laboratory Blood MAIN LAB [address] [place] [address] * POC GLUCOSE (12/25/2017 3:24 AM) Component Value Ref Range Glucose, POC 200 (H) 70 - 100 MG/DL Specimen Performing Laboratory MAIN LAB [address] [place] [address] * POC GLUCOSE (12/24/2017 8:18 PM) Component Value Ref Range Glucose, POC 263 (H) 70 - 100 MG/DL Specimen Performing Laboratory MAIN LAB [address] [place] [address] * DELIVER & TRANSFUSE RED BLOOD CELLS (INTRAOP ONLY) (12/24/2017 6:16 PM) Specimen Performing Laboratory Blood * POC GLUCOSE (12/24/2017 5:47 PM) Component Value Ref Range Glucose, POC 323 (H) 70 - 100 MG/DL Specimen Performing Laboratory [facility] MAIN [facility] [address] [place] [address] * POC GLUCOSE (12/24/2017 2:02 PM) Component Value Ref Range Glucose, POC 235 (H) 70 - 100 MG/DL Specimen Performing Laboratory [facility] MAIN LAB [address] [place] [address] * CULTURE-BLOOD W/SENSITIVITY (12/24/2017 1:12 PM) Component Value Ref Range Battery Name BLOOD CULTURE Specimen Description BLOOD RIGHT ANTECUBITAL Special Requests NONE Culture NO GROWTH 5 DAYS Report Status FINAL 12/30/2017 Specimen Performing Laboratory Blood MAIN LAB [address] [place] [address] * CHEST SINGLE VIEW (12/24/2017 10:34 AM) [...] Screen NEG Electronic Crossmatch YES Unit Number [id number] Blood Component Type RBC,ADSOL,LEUKO REDUCED Unit Division 0 Status OF Unit TRANSFUSED Transfusion Status OK TO TRANSFUSE Crossmatch Result COMPATIBLE,ELECTRONIC Specimen Performing Laboratory Blood [facility] [address] [place] [address] * POC GLUCOSE (12/24/2017 9:15 AM) Component Value Ref Range Glucose, POC 182 (H) 70 - 100 MG/DL Specimen Performing Laboratory [facility] [address] [place] [address] * CBC (12/24/2017 7:16 AM) Component Value [...] 11 FL Specimen Performing Laboratory MAIN LAB [address] [place] [address] * CBC (12/24/2017 4:34 AM) Component Value [...] 7 - 11 FL Specimen Performing Laboratory [facility] [address] [place] [address] * BASIC METABOLIC PANEL (12/24/2017 4:34 AM) [...] Pharmacist for questions. Specimen Performing Laboratory Blood [facility] [address] [place] [address] * POC GLUCOSE (12/23/2017 9:18 PM) Component Value Ref Range Glucose, POC 133 (H) 70 - 100 MG/DL Specimen Performing Laboratory [facility] [address] [place] [address] * POC GLUCOSE (12/23/2017 6:56 PM) Component Value Ref Range Glucose, POC 169 (H) 70 - 100 MG/DL Specimen Performing Laboratory [facility] [address] [place] [address] * OSMOLALITY-URINE RANDOM (12/23/2017 6:14 PM) Component Value Ref Range Osmolality-Urine 298 50 - 1,400 MOS/KG Specimen Performing Laboratory Urine [facility] [address] [place] [address] * SODIUM-URINE RANDOM (12/23/2017 6:14 PM) Component Value Ref Range Sodium, Random <10 MMOL/L Specimen Performing Laboratory Urine MAIN LAB [address] [place] [address] * LACTIC ACID (BG - RAPID LACTATE) (12/23/2017 1:42 PM) Component Value Ref Range Lactic Acid,BG 1.9 0.5 - 2.0 MMOL/L Specimen Performing Laboratory Blood MAIN LAB [address] [place] [address] * CULTURE-BLOOD W/SENSITIVITY (12/23/2017 1:42 PM) Component Value Ref Range Battery Name BLOOD CULTURE Specimen Description BLOOD LEFT ANTECUBITAL Special Requests NONE Culture NO GROWTH 5 DAYS Report Status FINAL 12/29/2017 Specimen Performing Laboratory Blood MAIN LAB [address] [place] [address] * CULTURE-BLOOD W/SENSITIVITY (12/23/2017 1:05 PM) Component [...] recognized Specimen Performing Laboratory Blood MAIN LAB [address] [place] [address] Organism Antibiotic Method Susceptibility Streptococcus Levofloxacin GRAF [...] 100 MG/DL Specimen Performing Laboratory MAIN LAB [address] [place] [address]68 * C DIFFICILE BY PCR (12/23/2017 10:14 AM) Component Value Ref Range Battery Name C DIFFICILE PCR Specimen Description FECES Special Requests NONE C. Difficile Toxin B PCR Repeat testing not indicated on specimen negative by PCR within 7 days notified 12.23.17/ Report Status FINAL 12/23/2017 Specimen Performing Laboratory Feces MAIN LAB [address] [place] [address] * POC GLUCOSE (12/23/2017 9:35 AM) Component Value Ref Range Glucose, POC 165 (H) 70 - 100 MG/DL Specimen Performing Laboratory MAIN LAB [address] [place] [address] * CBC (12/23/2017 7:29 AM) Component Value [...] Specimen Performing Laboratory Blood MAIN LAB [address] [place] [address] * BASIC METABOLIC PANEL (12/23/2017 7:29 AM) [...] Specimen Performing Laboratory Blood MAIN LAB [address] [place] [address] * POC GLUCOSE (12/22/2017 9:17 PM) Component Value Ref Range Glucose, POC 303 (H) 70 - 100 MG/DL Specimen Performing Laboratory MAIN LAB [address] [place] [address] * POC GLUCOSE (12/22/2017 5:50 PM) Component Value Ref Range Glucose, POC 376 (H) 70 - 100 MG/DL Specimen Performing Laboratory MAIN LAB [address] [place] [address] * POC GLUCOSE (12/22/2017 12:39 PM) Component Value Ref Range Glucose, POC 227 (H) 70 - 100 MG/DL Specimen Performing Laboratory MAIN LAB [address] [place] [address] * PREALBUMIN (12/22/2017 11:22 AM) Component Value Ref Range Prealbumin 4.0 (L) 17 - 34 MG/DL Specimen Performing Laboratory Blood MAIN LAB [address] [place] [address] * POC GLUCOSE (12/22/2017 9:41 AM) Component Value Ref Range Glucose, POC 113 (H) 70 - 100 MG/DL Specimen Performing Laboratory MAIN LAB [address] [place] [address] * ECG-SCAN (12/22/2017 8:10 AM) Narrative Ordered [...] G/DL Specimen Performing Laboratory Blood MAIN LAB [address] [place] [address] 53184 * ALBUMIN (12/22/2017 4:13 AM) Component Value Ref Range Albumin 2.0 (L) 3.5 - 5.0 G/DL Specimen Performing Laboratory [facility] [address] [place] [address] 71750 * CBC (12/22/2017 4:13 AM) Component Value [...] [place] Specimen Performing Laboratory Blood MAIN LAB [address] [place] [address] 30891 * BASIC METABOLIC PANEL (12/22/2017 4:13 AM) [...] Pharmacist for questions. Specimen Performing Laboratory Blood [facility] [address] [place] [address] 24380 * POC GLUCOSE (12/21/2017 8:38 PM) Component Value Ref Range Glucose, POC 208 (H) 70 - 100 MG/DL Specimen Performing Laboratory MAIN LAB [address] [place] [address] 51518 * POC GLUCOSE (12/21/2017 5:10 PM) Component Value Ref Range Glucose, POC 219 (H) 70 - 100 MG/DL Specimen Performing Laboratory MAIN LAB [address] [place] [address] 00399 * POC GLUCOSE (12/21/2017 2:59 PM) Component Value Ref Range Glucose, POC 213 (H) 70 - 100 MG/DL Specimen Performing Laboratory MAIN LAB [address] [place] [address] 49689 * CHEST SINGLE VIEW (12/21/2017 12:34 PM) [...] Performing Laboratory Blood [facility] MAIN [facility] [address] [place] [address] * BASIC METABOLIC PANEL (12/21/2017 11:33 AM) [...] questions. Specimen Performing Laboratory Blood MAIN LAB [address] [place] [address] 65269 * CULTURE-URINE W/SENSITIVITY (12/21/2017 9:00 AM) Component Value Ref Range Battery Name URINE CULTURE Specimen Description URINE Special Requests NONE Culture >100,000 organisms/ml ARACELY SPECIES, NOT ALBICANS Report Status FINAL 12/22/2017 Specimen Performing Laboratory Urine MAIN LAB [address] [place] [address] 86468 * URINALYSIS MICROSCOPIC REFLEX TO CULTURE (12/21/2017 [...] PACKED Specimen Performing Laboratory Urine MAIN LAB [address] [place] [address] 64975 * URINALYSIS DIPSTICK REFLEX TO CULTURE (12/21/2017 9:00 AM) Component Value Ref Range Color,UA YELLOW Turbidity,UA CLEAR CLEAR-CLEAR Specific Conway-Urine 1.003 1.003 - 1.035 pH,UA 7.0 5.0 - 8.0 Protein,UA NEG NEG-NEG Glucose,UA NEG NEG-NEG Ketones,UA NEG NEG-NEG Bilirubin,UA NEG NEG-NEG Blood,UA 1+ (A) NEG-NEG Urobilinogen,UA NORMAL NORM-NORMAL Nitrite,UA NEG NEG-NEG Leukocytes,UA 1+ (A) NEG-NEG Urine Ascorbic Acid, UA NEG NEG-NEG Specimen Performing Laboratory Urine MAIN LAB [address] [place] [address] 08079 * UA REFLEX CULTURE LABEL (12/21/2017 9:00 AM) Component Value Ref Range UA Reflex Culture LAB LABEL Specimen Performing Laboratory Urine MAIN LAB [address] [place] [address] 45224 * OSMOLALITY-URINE RANDOM (12/21/2017 9:00 AM) Component Value Ref Range Osmolality-Urine 94 50 - 1,400 MOS/KG Specimen Performing Laboratory Urine [facility] [address] [place] [address] 58426 * SODIUM-URINE RANDOM (12/21/2017 9:00 AM) Component Value Ref Range Sodium, Random <10 MMOL/L Specimen Performing Laboratory Urine [facility] [address] [place] [address] 62530 * POC GLUCOSE (12/21/2017 8:50 AM) Component Value Ref Range Glucose, POC 136 (H) 70 - 100 MG/DL Specimen Performing Laboratory [facility] [address] [place] [address] 78580 * URIC ACID (12/21/2017 4:38 AM) Component Value Ref Range Uric Acid 3.3 2.0 - 7.0 MG/DL Specimen Performing Laboratory [facility] [address] [place] [address] * THYROID STIMULATING HORMONE-TSH (12/21/2017 4:38 AM) Component Value Ref Range TSH 2.150 0.35 - 5.00 MCU/ML Specimen Performing Laboratory [facility] [address] [place], [place] [id number] * OSMOLALITY (12/21/2017 4:38 AM) Component Value Ref Range Osmolality 258 (L) 280 - 307 MOSMOL/KG Specimen Performing Laboratory [place] [id number] * CORTISOL,RANDOM (12/21/2017 4:38 AM) Component Value Ref Range Cortisol, Random 15.5 5.0 - 20.0 MCG/DL Specimen Performing Laboratory [facility] [address] [place], [place] [id number] * CBC (12/21/2017 4:38 AM) Component Value [...] - 11 FL Specimen Performing Laboratory Blood [facility] [address] [place], [place] [phone] * BASIC METABOLIC PANEL (12/21/2017 4:38 AM) [...] questions. Specimen Performing Laboratory Blood MAIN LAB [address] [place], [place] [phone] * POC GLUCOSE (12/21/2017 2:54 AM) Component Value Ref Range Glucose, POC 157 (H) 70 - 100 MG/DL Specimen Performing Laboratory MAIN LAB [address] [place] [address] 74480 * POC GLUCOSE (12/20/2017 9:27 PM) Component Value Ref Range Glucose, POC 263 (H) 70 - 100 MG/DL Specimen Performing Laboratory MAIN LAB [address] [place] [address] 00244 * POC GLUCOSE (12/20/2017 6:47 PM) Component Value Ref Range Glucose, POC 245 (H) 70 - 100 MG/DL Specimen Performing Laboratory MAIN LAB [address] [place] [address] 35216 * C DIFFICILE BY PCR (12/20/2017 1:40 PM) Component Value Ref Range Battery Name C DIFFICILE PCR Specimen Description FECES Special Requests NONE C. Difficile Toxin B PCR NEGATIVE-wait 7 days to repeat test Report Status FINAL 12/20/2017 Specimen Performing Laboratory Feces MAIN LAB [address] [place] [address] 04890 * POC GLUCOSE (12/20/2017 11:30 AM) Component Value Ref Range Glucose, POC 208 (H) 70 - 100 MG/DL Specimen Performing Laboratory [facility] [address] [place] [address] 10952 * POC GLUCOSE (12/20/2017 8:42 AM) Component Value Ref Range Glucose, POC 133 (H) 70 - 100 MG/DL Specimen Performing Laboratory MAIN LAB [address] [place] [address] * POC GLUCOSE (12/20/2017 3:21 AM) Component Value Ref Range Glucose, POC 151 (H) 70 - 100 MG/DL Specimen Performing Laboratory [facility] [address] [place] [address] 04271 * BASIC METABOLIC PANEL (12/20/2017 3:10 AM) [...] Pharmacist for questions. Specimen Performing Laboratory Blood [facility] [address] [place] [address] * CBC (12/20/2017 3:10 AM) Component Value [...] - 11 FL Specimen Performing Laboratory Blood [facility] [address] [place] [address] 20484 * POC GLUCOSE (12/19/2017 9:46 PM) Component Value Ref Range Glucose, POC 151 (H) 70 - 100 MG/DL Specimen Performing Laboratory [facility] [address] [place] [address] 93241 * POC GLUCOSE (12/19/2017 5:06 PM) Component Value Ref Range Glucose, POC 207 (H) 70 - 100 MG/DL Specimen Performing Laboratory [facility] [address] [place] [address] 42378 * POC GLUCOSE (12/19/2017 11:56 AM) Component Value Ref Range Glucose, POC 153 (H) 70 - 100 MG/DL Specimen Performing Laboratory [facility] [address] [place] [address] 32903 * POC GLUCOSE (12/19/2017 9:07 AM) Component Value Ref Range Glucose, POC 127 (H) 70 - 100 MG/DL Specimen Performing Laboratory [facility] [address] [place] [address] 82515 * CBC (12/19/2017 3:05 AM) Component Value [...] - 11 FL Specimen Performing Laboratory Blood [facility] [address] [place] [address] 51437 * BASIC METABOLIC PANEL (12/19/2017 3:05 AM) [...] Pharmacist for questions. Specimen Performing Laboratory Blood [facility] [address] [place], [place] [phone] * IONIZED CALCIUM (12/19/2017 3:05 AM) Component Value Ref Range Ionized Calcium 1.07 1.0 - 1.3 MMOL/L Specimen Performing Laboratory Blood [facility] [address] [place], [place] [phone] * PHOSPHORUS (12/19/2017 3:05 AM) Component Value Ref Range Phosphorus 3.0 2.0 - 4.0 MG/DL Specimen Performing Laboratory Blood [facility] [address] [place], [place] [phone] * MAGNESIUM (12/19/2017 3:05 AM) Component Value Ref Range Magnesium 1.9 1.6 - 2.6 mg/dL Specimen Performing Laboratory Blood [facility] [address] [place], [place] [phone] * POC GLUCOSE (12/18/2017 9:00 PM) Component Value Ref Range Glucose, POC 97 70 - 100 MG/DL Specimen Performing Laboratory [facility] [address] [place] [address] 55904 * POC GLUCOSE (12/18/2017 4:38 PM) Component Value Ref Range Glucose, POC 173 (H) 70 - 100 MG/DL Specimen Performing Laboratory [facility] [address] [place] [address] 74645 * POC GLUCOSE (12/18/2017 12:00 PM) Component Value Ref Range Glucose, POC 129 (H) 70 - 100 MG/DL Specimen Performing Laboratory [facility] [address] [place] [address] 65882 * POC GLUCOSE (12/18/2017 8:45 AM) Component Value Ref Range Glucose, POC 107 (H) 70 - 100 MG/DL Specimen Performing Laboratory [facility] [address] [place] [address] 04953 * POC GLUCOSE (12/18/2017 3:08 AM) Component Value Ref Range Glucose, POC 132 (H) 70 - 100 MG/DL Specimen Performing Laboratory MAIN LAB [address] [place] [address] * CBC (12/18/2017 3:07 AM) Component Value [...] Specimen Performing Laboratory Blood MAIN LAB [address] [place] [address] * BASIC METABOLIC PANEL (12/18/2017 3:07 AM) [...] Specimen Performing Laboratory Blood MAIN LAB [address] [place] [address] * IONIZED CALCIUM (12/18/2017 3:07 AM) Component Value Ref Range Ionized Calcium 1.12 1.0 - 1.3 MMOL/L Specimen Performing Laboratory Blood MAIN LAB [address] [place] [address] * PHOSPHORUS (12/18/2017 3:07 AM) Component Value Ref Range Phosphorus 2.5 2.0 - 4.0 MG/DL Specimen Performing Laboratory Blood [facility] [address] [place] [address] 65827 * MAGNESIUM (12/18/2017 3:07 AM) Component Value Ref Range Magnesium 2.2 1.6 - 2.6 mg/dL Specimen Performing Laboratory Blood [facility] [address] [place] [address] 04088 * POC GLUCOSE (12/17/2017 8:27 PM) Component Value Ref Range Glucose, POC 154 (H) 70 - 100 MG/DL Specimen Performing Laboratory [facility] [address] [place] [address] 48861 * POC GLUCOSE (12/17/2017 5:31 PM) Component Value Ref Range Glucose, POC 197 (H) 70 - 100 MG/DL Specimen Performing Laboratory [facility] [address] [place] [address] 01450 * CBC (12/17/2017 5:31 PM) Component Value [...] - 11 FL Specimen Performing Laboratory Blood [facility] [address] [place] [address] 98306 * POC GLUCOSE (12/17/2017 12:05 PM) Component Value Ref Range Glucose, POC 136 (H) 70 - 100 MG/DL Specimen Performing Laboratory [facility] [address] [place] [address] 06403 * POC GLUCOSE (12/17/2017 8:17 AM) Component Value Ref Range Glucose, POC 123 (H) 70 - 100 MG/DL Specimen Performing Laboratory [facility] [address] [place] [address] 04031 * ABDOMEN AP ONLY (12/17/2017 7:10 AM) Specimen Performing Laboratory [facility] RAD RESULTS Impressions Nasoenteric tube positioning as [...] Specimen Performing Laboratory [facility] MAIN LAB [address] [place] [address] * CBC (12/17/2017 3:04 AM) Component Value [...] FL Specimen Performing Laboratory Blood MAIN LAB [address] [place] [address] 25932 * BASIC METABOLIC PANEL (12/17/2017 3:04 AM) [...] questions. Specimen Performing Laboratory Blood MAIN LAB [address] [place] [address] 17425 * IONIZED CALCIUM (12/17/2017 3:04 AM) Component Value Ref Range Ionized Calcium 1.13 1.0 - 1.3 MMOL/L Specimen Performing Laboratory Blood MAIN LAB [address] [place] [address] 91962 * PHOSPHORUS (12/17/2017 3:04 AM) Component Value Ref Range Phosphorus 2.0 2.0 - 4.0 MG/DL Specimen Performing Laboratory Blood MAIN LAB [address] [place] [address] 41988 * MAGNESIUM (12/17/2017 3:04 AM) Component Value Ref Range Magnesium 2.1 1.6 - 2.6 mg/dL Specimen Performing Laboratory Blood MAIN LAB [address] [place] [address] 96567 * CBC (12/16/2017 10:00 PM) Component Value [...] FL Specimen Performing Laboratory Blood MAIN LAB [address] [place] [address] 27777 * POC GLUCOSE (12/16/2017 8:26 PM) Component Value Ref Range Glucose, POC 131 (H) 70 - 100 MG/DL Specimen Performing Laboratory MAIN LAB [address] [place] [address] 19080 * POC GLUCOSE (12/16/2017 5:01 PM) Component Value Ref Range Glucose, POC 165 (H) 70 - 100 MG/DL Specimen Performing Laboratory MAIN LAB [address] [place] [address] 95919 * BASIC METABOLIC PANEL (12/16/2017 2:20 PM) [...] Pharmacist for questions. Specimen Performing Laboratory Blood [facility] [address] [place] [address] 74688 * CBC (12/16/2017 2:20 PM) Component Value [...] [place] Specimen Performing Laboratory Blood MAIN LAB [address] [place], [place] [phone] * POC GLUCOSE (12/16/2017 12:09 PM) Component Value Ref Range Glucose, POC 181 (H) 70 - 100 MG/DL Specimen Performing Laboratory [facility] [address] [place], [place] [phone] * POC GLUCOSE (12/16/2017 9:39 AM) Component Value Ref Range Glucose, POC 171 (H) 70 - 100 MG/DL Specimen Performing Laboratory [facility] [address] [place] [address] * BLOOD GASES, ARTERIAL (12/16/2017 3:27 AM) Component Value Ref Range pH-Arterial 7.33 (L) 7.35 - 7.45 pCO2-Arterial 41 35 - 45 MMHG pO2-Arterial 84 80 - 100 MMHG Base Deficit-Arterial 4.2 MMOL/L O2 Sat-Arterial 97.0 95 - 99 % Yxogyboowet-PKQ-Rgo 20.9 (L) 21 - 28 MMOL/L Specimen Performing Laboratory Blood, arterial - Blood [facility] [address] [place] [address] * POC GLUCOSE (12/16/2017 3:06 AM) Component Value Ref Range Glucose, POC 136 (H) 70 - 100 MG/DL Specimen Performing Laboratory [facility] [address] [place] [address] * CBC (12/16/2017 3:05 AM) Component Value [...] FL Specimen Performing Laboratory Blood MAIN LAB [address] [place] [address] 55468 * BASIC METABOLIC PANEL (12/16/2017 3:05 AM) [...] questions. Specimen Performing Laboratory Blood MAIN LAB [address] [place] [address] 74585 * IONIZED CALCIUM (12/16/2017 3:05 AM) Component Value Ref Range Ionized Calcium 1.16 1.0 - 1.3 MMOL/L Specimen Performing Laboratory Blood MAIN LAB [address] [place] [address] 52496 * PHOSPHORUS (12/16/2017 3:05 AM) Component Value Ref Range Phosphorus 3.6 2.0 - 4.0 MG/DL Specimen Performing Laboratory Blood MAIN LAB [address] [place] [address] 94595 * MAGNESIUM (12/16/2017 3:05 AM) Component Value Ref Range Magnesium 1.8 1.6 - 2.6 mg/dL Specimen Performing Laboratory Blood MAIN LAB [address] [place] [address] 71394 * PHOSPHORUS (12/15/2017 10:00 PM) Component Value Ref Range Phosphorus 4.1 (H) 2.0 - 4.0 MG/DL Specimen Performing Laboratory Blood MAIN LAB [address] [place] [address] 42520 * MAGNESIUM (12/15/2017 10:00 PM) Component Value Ref Range Magnesium 2.0 1.6 - 2.6 mg/dL Specimen Performing Laboratory Blood MAIN LAB [address] [place] [address] * TEG WITH KAOLIN (12/15/2017 10:00 PM) [...] Specimen Performing Laboratory Blood MAIN LAB [address] [place] [address] * CBC (12/15/2017 10:00 PM) Component Value [...] FL Specimen Performing Laboratory Blood MAIN LAB [address] [place] [address] 85763 * IONIZED CALCIUM (12/15/2017 10:00 PM) Component Value Ref Range Ionized Calcium 1.23 1.0 - 1.3 MMOL/L Specimen Performing Laboratory Blood MAIN LAB [address] [place], [place] [phone] * BLOOD GASES, ARTERIAL (12/15/2017 10:00 PM) Component Value Ref Range pH-Arterial 7.31 (L) 7.35 - 7.45 pCO2-Arterial 38 35 - 45 MMHG pO2-Arterial 95 80 - 100 MMHG Base Deficit-Arterial 6.4 MMOL/L O2 Sat-Arterial 97.6 95 - 99 % Qmebugprgbf-HQA-Rjs 19.2 (L) 21 - 28 MMOL/L Specimen Performing Laboratory Blood, arterial - Blood [facility] [address] [place], [place] [phone] * POC GLUCOSE (12/15/2017 8:35 PM) Component Value Ref Range Glucose, POC 272 (H) 70 - 100 MG/DL Specimen Performing Laboratory MAIN LAB [address] [place], [place] [id number] * CBC (12/15/2017 7:26 PM) Component Value [...] Performing Laboratory Blood [facility] MAIN [facility] [address] [place] [address] * TRANSFUSE RBC'S BLEEDING PT OR EXCHANGE TRANSFUSION (12/15/2017 6:54 PM) Specimen Performing Laboratory Blood * POC GLUCOSE (12/15/2017 5:32 PM) Component Value Ref Range Glucose, POC 255 (H) 70 - 100 MG/DL Specimen Performing Laboratory MAIN LAB [address] [place] [address] * TEG WITH KAOLIN (12/15/2017 3:25 PM) [...] Specimen Performing Laboratory Blood MAIN LAB [address] [place] [address] * CBC (12/15/2017 1:45 PM) Component Value [...] [place] Specimen Performing Laboratory Blood MAIN LAB [address] [place] [address] * POC GLUCOSE (12/15/2017 8:54 AM) Component Value Ref Range Glucose, POC 177 (H) 70 - 100 MG/DL Specimen Performing Laboratory [facility] [address] [place] [address] * BLOOD GASES, ARTERIAL (12/15/2017 8:45 AM) Component Value Ref Range pH-Arterial 7.36 7.35 - 7.45 pCO2-Arterial 22 (L) 35 - 45 MMHG pO2-Arterial 136 (H) 80 - 100 MMHG Base Deficit-Arterial 12.5 MMOL/L O2 Sat-Arterial 99.4 (H) 95 - 99 % Zsenepzblcr-SZF-Ghz 14.5 (L) 21 - 28 MMOL/L Specimen Performing Laboratory Blood, arterial - Blood [facility] [address] [place] [address] 16400 * POC GLUCOSE (12/15/2017 6:45 AM) Component Value Ref Range Glucose, POC 206 (H) 70 - 100 MG/DL Specimen Performing Laboratory MAIN LAB [address] [place] [address] * CBC (12/15/2017 5:40 AM) Component Value [...] FL Specimen Performing Laboratory Blood MAIN LAB [address] [place] [address] 42459 * BASIC METABOLIC PANEL (12/15/2017 4:40 AM) [...] questions. Specimen Performing Laboratory Blood MAIN LAB [address] [place] [address] 85221 * IONIZED CALCIUM (12/15/2017 4:40 AM) Component Value Ref Range Ionized Calcium 1.11 1.0 - 1.3 MMOL/L Specimen Performing Laboratory Blood MAIN LAB [address] [place] [address] 90191 * PHOSPHORUS (12/15/2017 4:40 AM) Component Value Ref Range Phosphorus 3.2 2.0 - 4.0 MG/DL Specimen Performing Laboratory Blood MAIN LAB [address] [place] [address] 55221 * MAGNESIUM (12/15/2017 4:40 AM) Component Value Ref Range Magnesium 2.0 1.6 - 2.6 mg/dL Specimen Performing Laboratory Blood MAIN LAB [address] [place] [address] 38600 * LACTIC ACID(LACTATE) (12/14/2017 11:20 PM) Component Value Ref Range Lactic Acid 0.8 0.5 - 2.0 MMOL/L Specimen Performing Laboratory Blood MAIN LAB [address] [place] [address] 95012 * BLOOD GASES, ARTERIAL (12/14/2017 11:20 PM) Component Value Ref Range pH-Arterial 7.34 (L) 7.35 - 7.45 pCO2-Arterial 34 (L) 35 - 45 MMHG pO2-Arterial 77 (L) 80 - 100 MMHG Base Deficit-Arterial 7.1 MMOL/L O2 Sat-Arterial 95.3 95 - 99 % Uqvqduskoyu-XHK-Hjo 18.6 (L) 21 - 28 MMOL/L Specimen Performing Laboratory Blood, arterial - Blood [facility]IN [facility] [address] [place], [place] [id number] * PHOSPHORUS (12/14/2017 11:20 PM) Component Value Ref Range Phosphorus 3.5 2.0 - 4.0 MG/DL Specimen Performing Laboratory Blood MAIN LAB [address] [place] [address] 57175 * MAGNESIUM (12/14/2017 11:20 PM) Component Value Ref Range Magnesium 2.1 1.6 - 2.6 mg/dL Specimen Performing Laboratory Blood MAIN LAB [address] [place] [address] 48392 * BASIC METABOLIC PANEL (12/14/2017 11:20 PM) [...] questions. Specimen Performing Laboratory Blood MAIN LAB [address] [place] [address] 14051 * CBC (12/14/2017 11:20 PM) Component Value [...] [place] Specimen Performing Laboratory Blood MAIN LAB [address] [place], [place] [id number] * POC GLUCOSE (12/14/2017 9:22 PM) Component Value Ref Range Glucose, POC 199 (H) 70 - 100 MG/DL Specimen Performing Laboratory MAIN LAB [address] [place], [place] [id number] * CBC AND DIFF (12/14/2017 6:42 PM) [...] K/UL Specimen Performing Laboratory Blood MAIN LAB [address] [place], [place] [phone] * PHOSPHORUS (12/14/2017 6:42 PM) Component Value Ref Range Phosphorus 4.0 2.0 - 4.0 MG/DL Specimen Performing Laboratory Blood MAIN LAB [address] [place], [place] [id number] * MAGNESIUM (12/14/2017 6:42 PM) Component Value Ref Range Magnesium 2.0 1.6 - 2.6 mg/dL Specimen Performing Laboratory Blood [facility] MAIN [facility] [address] [place] [id number] * BASIC METABOLIC PANEL (12/14/2017 6:42 PM) [...] Specimen Performing Laboratory Blood MAIN LAB [address] [place] [address] * LACTIC ACID(LACTATE) (12/14/2017 6:42 PM) Component Value Ref Range Lactic Acid 1.5 0.5 - 2.0 MMOL/L Specimen Performing Laboratory Blood [facility]IN [facility] [address] [place] [address] * PTT (APTT) (12/14/2017 6:42 PM) Component Value Ref Range APTT 23.7 21.0 - 39.0 SEC Specimen Performing Laboratory Blood [facility]IN [facility] [address] [place] [address] * BLOOD GASES, ARTERIAL (12/14/2017 6:41 PM) Component Value Ref Range pH-Arterial 7.32 (L) 7.35 - 7.45 pCO2-Arterial 33 (L) 35 - 45 MMHG pO2-Arterial 89 80 - 100 MMHG Base Deficit-Arterial 8.2 MMOL/L O2 Sat-Arterial 97.0 95 - 99 % Odscqsfyhkv-UUP-Vsu 17.8 (L) 21 - 28 MMOL/L Specimen Performing Laboratory Blood, arterial - Blood [facility]IN [facility] [address] [place] [address] 82391 * IONIZED CALCIUM (12/14/2017 6:41 PM) Component Value Ref Range Ionized Calcium 1.14 1.0 - 1.3 MMOL/L Specimen Performing Laboratory Blood MAIN LAB [address] [place], [place] [id number] * POTASSIUM, BG (12/14/2017 4:51 PM) Component Value Ref Range Potassium 4.9 3.5 - 5.1 MMOL/L Specimen Performing Laboratory Blood MAIN LAB [address] [place], [place] [phone] * SODIUM,BG (12/14/2017 4:51 PM) Component Value Ref Range Sodium 139 137 - 147 MMOL/L Specimen Performing Laboratory Blood MAIN LAB [address] [place], [place] [phone] * IONIZED CALCIUM,BG (12/14/2017 4:51 PM) Component Value Ref Range Ionized Calcium 1.12 1.0 - 1.3 MMOL/L Specimen Performing Laboratory Blood MAIN LAB [address] [place], [place] [id number] * GLUCOSE,BG (12/14/2017 4:51 PM) Component Value Ref Range Glucose 263 (H) 70 - 100 MG/DL Specimen Performing Laboratory Blood MAIN LAB [address] [place], [place] [id number] * BLOOD GASES, ARTERIAL (12/14/2017 4:51 PM) Component Value Ref Range pH-Arterial 7.32 (L) 7.35 - 7.45 pCO2-Arterial 37 35 - 45 MMHG pO2-Arterial 159 (H) 80 - 100 MMHG Base Deficit-Arterial 6.4 MMOL/L O2 Sat-Arterial 99.4 (H) 95 - 99 % Vmmcurbbgma-IGW-Kub 19.2 (L) 21 - 28 MMOL/L Specimen Performing Laboratory Blood, arterial - Blood MAIN LAB [address] [place], [place] [id number] * HEMOGLOBIN & HEMATOCRIT, BG (12/14/2017 4:51 PM) Component Value Ref Range Hemoglobin BG 12.0 12.0 - 15.0 GM/DL Hematocrit BG 37.1 36 - 45 % Specimen Performing Laboratory Blood MAIN LAB [address] [place], [place] [id number] * DELIVER & TRANSFUSE RED BLOOD CELLS [...] MMOL/L Specimen Performing Laboratory Blood MAIN LAB [address] [place] [address] * SODIUM,BG (12/14/2017 3:45 PM) Component Value Ref Range Sodium 138 137 - 147 MMOL/L Specimen Performing Laboratory Blood MAIN LAB [address] [place] [address] * IONIZED CALCIUM,BG (12/14/2017 3:45 PM) Component Value Ref Range Ionized Calcium 1.12 1.0 - 1.3 MMOL/L Specimen Performing Laboratory Blood MAIN LAB [address] [place] [address] * GLUCOSE,BG (12/14/2017 3:45 PM) Component Value Ref Range Glucose 278 (H) 70 - 100 MG/DL Specimen Performing Laboratory Blood MAIN LAB [address] [place] [address] * BLOOD GASES, ARTERIAL (12/14/2017 3:45 PM) Component Value Ref Range pH-Arterial 7.30 (L) 7.35 - 7.45 pCO2-Arterial 45 35 - 45 MMHG pO2-Arterial 143 (H) 80 - 100 MMHG Base Deficit-Arterial 4.3 MMOL/L O2 Sat-Arterial 99.0 95 - 99 % Ddjfbccjjzp-AND-Pmc 20.8 (L) 21 - 28 MMOL/L Specimen Performing Laboratory Blood, arterial - Blood MAIN LAB [address] [place] [address] * HEMOGLOBIN & HEMATOCRIT, BG (12/14/2017 3:45 PM) Component Value Ref Range Hemoglobin BG 9.7 (L) 12.0 - 15.0 GM/DL Hematocrit BG 30.2 (L) 36 - 45 % Specimen Performing Laboratory Blood MAIN LAB [address] [place] [address] * DELIVER & TRANSFUSE RED BLOOD CELLS (INTRAOP ONLY) (12/14/2017 3:31 PM) Specimen Performing Laboratory Blood * LACTIC ACID (BG - RAPID LACTATE) (12/14/2017 2:34 PM) Component Value Ref Range Lactic Acid,BG 0.8 0.5 - 2.0 MMOL/L Specimen Performing Laboratory Blood MAIN LAB [address] [place] [id number] * POTASSIUM, BG (12/14/2017 2:34 PM) Component Value Ref Range Potassium 4.4 3.5 - 5.1 MMOL/L Specimen Performing Laboratory Blood MAIN LAB [address] [place], [place] [id number] * SODIUM,BG (12/14/2017 2:34 PM) Component Value Ref Range Sodium 137 137 - 147 MMOL/L Specimen Performing Laboratory Blood MAIN LAB [address] [place] [id number] * IONIZED CALCIUM,BG (12/14/2017 2:34 PM) Component Value Ref Range Ionized Calcium 1.12 1.0 - 1.3 MMOL/L Specimen Performing Laboratory Blood MAIN LAB [address] [place] [address] * GLUCOSE,BG (12/14/2017 2:34 PM) Component Value Ref Range Glucose 244 (H) 70 - 100 MG/DL Specimen Performing Laboratory Blood MAIN LAB [address] [place] [address] * BLOOD GASES, ARTERIAL (12/14/2017 2:34 PM) Component Value Ref Range pH-Arterial 7.34 (L) 7.35 - 7.45 pCO2-Arterial 43 35 - 45 MMHG pO2-Arterial 140 (H) 80 - 100 MMHG Base Deficit-Arterial 2.5 MMOL/L O2 Sat-Arterial 99.1 (H) 95 - 99 % Vlrsrkektmi-LGE-Eci 22.4 21 - 28 MMOL/L Specimen Performing Laboratory Blood, arterial - Blood MAIN LAB [address] [place] [address] * HEMOGLOBIN & HEMATOCRIT, BG (12/14/2017 2:34 PM) Component Value Ref Range Hemoglobin BG 8.5 (L) 12.0 - 15.0 GM/DL Hematocrit BG 26.5 (L) 36 - 45 % Specimen Performing Laboratory Blood MAIN LAB [address] [place], [place] [id number] * LACTIC ACID (BG - RAPID LACTATE) (12/14/2017 1:25 PM) Component Value Ref Range Lactic Acid,BG 1.0 0.5 - 2.0 MMOL/L Specimen Performing Laboratory MAIN LAB [address] [place], [place] [id number] * POTASSIUM, BG (12/14/2017 1:25 PM) Component Value Ref Range Potassium 4.5 3.5 - 5.1 MMOL/L Specimen Performing Laboratory Blood MAIN LAB [address] [place], [place] [id number] * SODIUM,BG (12/14/2017 1:25 PM) Component Value Ref Range Sodium 139 137 - 147 MMOL/L Specimen Performing Laboratory Blood MAIN LAB [address] [place], [place] [id number] * IONIZED CALCIUM,BG (12/14/2017 1:25 PM) Component Value Ref Range Ionized Calcium 1.13 1.0 - 1.3 MMOL/L Specimen Performing Laboratory Blood [facility] [address] [place] [address] * GLUCOSE,BG (12/14/2017 1:25 PM) Component Value Ref Range Glucose 236 (H) 70 - 100 MG/DL Specimen Performing Laboratory Blood MAIN LAB [address] [place] [address] * BLOOD GASES, ARTERIAL (12/14/2017 1:25 PM) Component Value Ref Range pH-Arterial 7.35 7.35 - 7.45 pCO2-Arterial 42 35 - 45 MMHG pO2-Arterial 146 (H) 80 - 100 MMHG Base Deficit-Arterial 2.4 MMOL/L O2 Sat-Arterial 99.2 (H) 95 - 99 % Zuwnthflsgl-UGB-Ojo 22.4 21 - 28 MMOL/L Specimen Performing Laboratory Blood, arterial - Blood MAIN LAB [address] [place], [place] [id number] * HEMOGLOBIN & HEMATOCRIT, BG (12/14/2017 1:25 PM) Component Value Ref Range Hemoglobin BG 9.2 (L) 12.0 - 15.0 GM/DL Hematocrit BG 28.6 (L) 36 - 45 % Specimen Performing Laboratory Blood MAIN LAB [address] [place] [address] * POTASSIUM, BG (12/14/2017 11:44 AM) Component Value Ref Range Potassium 4.6 3.5 - 5.1 MMOL/L Specimen Performing Laboratory Blood MAIN LAB [address] [place], [place] [id number] * SODIUM,BG (12/14/2017 11:44 AM) Component Value Ref Range Sodium 140 137 - 147 MMOL/L Specimen Performing Laboratory Blood MAIN LAB [address] [place] [address] * IONIZED CALCIUM,BG (12/14/2017 11:44 AM) Component Value Ref Range Ionized Calcium 1.17 1.0 - 1.3 MMOL/L Specimen Performing Laboratory Blood MAIN LAB [address] [place] [address] * GLUCOSE,BG (12/14/2017 11:44 AM) Component Value Ref Range Glucose 241 (H) 70 - 100 MG/DL Specimen Performing Laboratory Blood MAIN LAB [address] [place] [address] * BLOOD GASES, ARTERIAL (12/14/2017 11:44 AM) Component Value Ref Range pH-Arterial 7.37 7.35 - 7.45 pCO2-Arterial 43 35 - 45 MMHG pO2-Arterial 127 (H) 80 - 100 MMHG Base Deficit-Arterial 0.7 MMOL/L O2 Sat-Arterial 98.8 95 - 99 % Iuvmisantdb-UZE-Azp 23.8 21 - 28 MMOL/L Specimen Performing Laboratory Blood, arterial - Blood MAIN LAB [address] [place] [address] * HEMOGLOBIN & HEMATOCRIT, BG (12/14/2017 11:44 AM) Component Value Ref Range Hemoglobin BG 10.0 (L) 12.0 - 15.0 GM/DL Hematocrit BG 31.0 (L) 36 - 45 % Specimen Performing Laboratory Blood MAIN LAB [address] [place] [address] * SURGICAL PATHOLOGY (12/14/2017 10:23 AM) Component Value Ref Range PATHOLOGY REPORT [email or web address] Department of Pathology and Laboratory Medicine [address] [place] [address] Surgical Pathology Office:[phone]:[phone] SURGICAL PATHOLOGY REPORT NAME: BEATA KAISER SURG PATH #: [id number] MR #: [id number] SPECIMEN CLASS: SR BILLING #: [id number] ALT ID #:LOCATION: [id number] DATE OF PROCEDURE: [...] cm aggregate of gallardo-pink soft tissue fragments. Core Winder sections of the specimen are submitted in [...] submitted to [facility] Core Facility: No Core Winder sections of the specimen are submitted as follows: H1 Core Winder section of skin scar and surrounding gallardo purple bruised-appearing skin. H2 Core Winder proximal skin, soft tissue and muscle margin. H3-H6 Core Winder sections from the hemorrhagic cavity within the subcutaneous and adipose tissue. H7-H10 Tumor within muscle and soft tissue. H11 Bone margin at pubic symphysis (placed in decalcification solution prior to processing). B23-O82Aszuy within pubis bone adjacent to acetabulum (H12 is placed in decalcification solution prior to processing). H 14-C29Famhm within the ilium (H15 is placed in decalcification solution prior to processing). H16 Tumor two gluteus medius. H31-L64Wxkhconnvo consumer sales representative sections throughout the tumor.(brm) I. Received in formalin labeled with the patient's name and "additional tissue, left hemipelvectomy" is a 5.9 x 4.2 x 1.5 cm aggregate of gallardo-pink soft tissue fragments and bone. These tissue fragments are not oriented. Core Winder sections are submitted in cassettes I1 and I2 (I2 is placed in decalcification solution prior to processing). Also in the container is a 9.5 x 7.2 x 3.1 cm red-brown portion of muscle and attached yellow adipose tissue. The specimen is serially sectioned to reveal red-brown unremarkable muscle and yellow unremarkable adipose tissue. Core Winder sections from throughout the specimen are submitted in cassettes I3-I5. (brm) /12/14/2017 Intraoperative Consultation: A1FS, skeletal muscle, "paraspinous muscle margin", biopsy: Negative for malignancy. B1FS, skeletal muscle, "abdominal muscle margin", biopsy: Negative for malignancy. C1FS, skeletal muscle, "psoas margin", biopsy: Negative for malignancy. D1FS, bone and soft tissue, "pubis margin", biopsy: Focal atypical cells present. E1FS, bone and soft tissue, "pubis margin #2", biopsy: Microscopic focus suspicious for chondrosarcoma. J0KE-W1RY, vein contents, "vein contents", biopsy: Chondrosarcoma G1FS, [...] questions. Specimen Performing Laboratory Blood MAIN LAB [address] [place] [address] * CBC (12/14/2017 6:12 AM) Component Value [...] [place] Specimen Performing Laboratory Blood MAIN LAB [address] [place] [address] * PTT (APTT) (12/14/2017 6:12 AM) Component Value Ref Range APTT 29.3 21.0 - 39.0 SEC Specimen Performing Laboratory Blood MAIN LAB [address] [place] [address] * PTT (APTT) (12/13/2017 8:49 PM) Component Value Ref Range APTT 95.1 (H) 21.0 - 39.0 SEC Specimen Performing Laboratory Blood MAIN LAB [address] [place] [address] * PTT (APTT) (12/13/2017 11:30 AM) Component Value Ref Range APTT 38.7 21.0 - 39.0 SEC Specimen Performing Laboratory Blood MAIN LAB [address] [place] [address] * TYPE & CROSSMATCH (12/13/2017 11:17 AM) Component Value Ref Range Units Ordered 8 Crossmatch Expires 12/16/2017 Record Check FOUND ABO/RH(D) A POS Antibody Screen NEG Electronic Crossmatch YES Unit Number [id number] Blood Component Type RBC,ADSOL,LEUKO REDUCED Unit Division 0 Status OF Unit TRANSFUSED Transfusion Status OK TO TRANSFUSE Crossmatch Result COMPATIBLE,ELECTRONIC Unit Number [id number] Blood Component Type RBC,ADSOL,LEUKO REDUCED Unit Division 0 Status OF Unit TRANSFUSED Transfusion Status OK TO TRANSFUSE Crossmatch Result COMPATIBLE,ELECTRONIC Unit Number [id number] Blood Component Type RBC,ADSOL,LEUKO REDUCED Unit Division 0 Status OF Unit TRANSFUSED Transfusion Status OK TO TRANSFUSE Crossmatch Result COMPATIBLE,ELECTRONIC Unit Number [id number] Blood Component Type RBC,ADSOL,LEUKO REDUCED Unit Division 0 Status OF Unit REL FROM ALLOC Transfusion Status OK TO TRANSFUSE Crossmatch Result COMPATIBLE,ELECTRONIC Unit Number [id number] Blood Component Type RBC,ADSOL,LEUKO REDUCED Unit Division 0 Status OF Unit TRANSFUSED Transfusion Status OK TO TRANSFUSE Crossmatch Result COMPATIBLE,ELECTRONIC Unit Number [id number] Blood Component Type RBC,ADSOL,LEUKO REDUCED Unit Division 0 Status OF Unit REL FROM ALLOC Transfusion Status OK TO TRANSFUSE Crossmatch Result COMPATIBLE,ELECTRONIC Unit Number [id number] Blood Component Type RBC,ADSOL,LEUKO REDUCED Unit Division 0 Status OF Unit TRANSFUSED Transfusion Status OK TO TRANSFUSE Crossmatch Result COMPATIBLE,ELECTRONIC Unit Number [id number] Blood Component Type RBC,ADSOL,LEUKO REDUCED,2ND CONT. Unit Division 0 Status OF Unit REL FROM ALLOC Transfusion Status OK TO TRANSFUSE Crossmatch Result COMPATIBLE,ELECTRONIC Unit Number [id number] Blood Component Type RBC,ADSOL,LEUKO REDUCED,2ND CONT. Unit Division 0 Status OF Unit TRANSFUSED Transfusion Status OK TO TRANSFUSE Crossmatch Result COMPATIBLE,ELECTRONIC Specimen Performing Laboratory Blood [facility] [address] [place] [address] * BASIC METABOLIC PANEL (12/13/2017 11:17 AM) [...] Performing Laboratory Blood [facility] [address] [place] [address] * CBC (12/13/2017 11:17 AM) Component Value [...] Performing Laboratory Blood [facility] [address] [place] [address] in this encounter Visit Diagnoses Diagnosis Pelvic mass Abdominal or pelvic swelling, mass or lump, [...] CDT Given 01/12/2018 30 mL 23:19 CDT bupivacaine (MARCAINE) 0.5 % injection Given 12/14/2017 3 mL INTRA-PROCEDURE MED, Starting Wed 18:18 CDT 12/14/17 at 1818, Until Wed12/14/17 at 1833, Intra-op buPROPion (WELLBUTRIN) tablet 100 mg Given 01/13/2018 [...] Until Discontinued, -POC glucose 140-180mg/dL at , administer 2 units insulin, at 21, 03* administer 0 units. -POC glucose 181-220mg/dL at , administer 4 units insulin, at 21, 03* administer 2 units. -POC glucose 221-260mg/dL at , , administer 6 units insulin, at 21, 03* administer 4 units. -POC glucose 261-300mg/dL at , administer 8 units insulin, at 21, 03* administer 6 units. -POC glucose 301-350mg/dL at , administer 10 units insulin, at 21, 03* administer 8 units. -POC glucose 351-400mg/dL at , administer 12 units insulin, at 21, 03* administer 10 units. -POC glucose >400mg/dL at 07, 11, 17 administer 14 units insulin, at 21, 03* [...] BEDTIME DAILY, First 20:56 CDT dose on Wed01/13/18 at 2100, Until Discontinued ondansetron (ZOFRAN) injection 4 mg Given 01/05/2018 4 mg 4 mg, Intravenous, EVERY 6 HOURS PRN, 22:27 CDT Starting Wed12/13/17 at 1028, Until Wed01/14/18 at 1559, Nausea/Vomiting Injectable ortho irrigation 1 L bottle Given 12/14/2017 2,000 mL Hip, Left 1,000 mL, INTRA-PROCEDURE MED, Starting 09:20 CDT Wed12/14/17 at 0920, Until Wed12/14/17 at 1833, Intra-op oxyCODONE (ROXICODONE, OXY-IR) tablet Given 01/14/2018 20 mg 10-20 mg 02:55 CDT 10-20 mg, Oral, EVERY 3 HOURS PRN, Starting Wed12/31/17 at 1030, Until Wed01/14/18 at 1559, Pain PO Given 01/14/2018 20 mg 05:57 CDT Given 01/14/2018 20 mg 11:55 CDT oxyCODONE SR (OXYCONTIN) tablet 20 mg Given 01/13/2018 20 mg 20 mg, Oral, TWICE DAILY, First dose on 09:05 CDT Wed01/11/18 at 2100, Until Discontinued, DO NOT crush, break, or chew. NOTE: This is a HIGH ALERT Medication. Given 01/13/2018 20 mg 22:08 CDT Given 01/14/2018 20 mg 09:11 CDT pancrelipase 20,000 Units/ sodium bicarbonate 650 mg(#) (KU CLOG DESTROYER) for occluded feeding tube cap 1 capsule 1 capsule, Feeding Tube, NEEDED (WEIR FISHER FROM RX), Starting Wed12/27/17 at 1631, Until Wed01/14/18 at 1559, Other..., [...] Flatulence Given 01/05/2018 80 mg 20:46 CDT thrombin 20,000 unit topical spray kit Given 12/14/2017 2 each Hip, Left INTRA-PROCEDURE MED, Starting Wed 13:07 CDT 12/14/17 at 1307, Until Wed12/14/17 at 1833, Intra-op vitamin A & D topical ointment Given 01/13/2018 Topical, TWICE DAILY, First dose on Sun 12:00 CDT 12/26/17 at 2100, Until Discontinued, Apply thin layer of ointment to Labia wound and left lower abdomen. Given 01/13/2018 21:00 CDT Given 01/14/2018 08:15 CDT in this encounter
--- OUTSIDE RECORDS SUMMARY | 2018-03-06 22:34 | XMS REPORT | Encounter Summary ---
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
--- OUTSIDE RECORDS SUMMARY | 2018-03-06 22:34 | XMS REPORT | Encounter Summary ---
Author Author [facility] Address Unknown Phone Unavailable Care Team Providers Care Apparel Stock Checker Name Role Phone Della Cuellar MD PCP Reason for Visit * Reason Comments Other Encounter Details Date Type Department Care Team Description 12/10/2017 Telephone [facility] Tamiko Luther MD Other Physicians - Orthopedics [address] [facility] [address] FLO[address] [place] [address] ORTHOPEDICS [facility] [phone] [place] [address] Social History Tobacco Use Types Packs/Day Years Used Date Never Smoker Smokeless Tobacco: Never Used Alcohol Use Drinks/Week oz/Week Comments No Sex Assigned at Date Recorded Not on file as of this encounter Functional Status Functional Status Response Date of Assessment Does the patient have a hearing impairment: No 12/03/2017 Does the patient have a visual impairment: No 12/03/2017 Does the patient have impaired ambulation: No 12/03/2017 Does the patient have an activity of daily living No 12/03/2017 (ADL) impairment: Does the patient have an instrumental activity of No 12/03/2017 daily living (IADL) impairment: Cognitive Status Response Date of Assessment Does the patient have a cognitive impairment: No 12/03/2017 as of this encounter Miscellaneous Notes * Telephone Encounter - Alen Waterscie - 12/10/2017 12:35 PM CDT Spoke with Beata. Her swelling is down. Her pain is under control. Advised her that Dr. Luther would like her here by 10am On Wednesday, 3/26 for her admission and surgery will be 12/14/17. Beata stated understanding and had no further questions. in this encounter Plan of Treatment Date Type Specialty Care Team Description 03/01/2018 Procedure Pass Cardiothoracic Surgery as of this encounter Visit Diagnoses Not on filein this encounter
--- OUTSIDE RECORDS SUMMARY | 2018-03-06 22:34 | XMS REPORT | Encounter Summary ---
Author Author [facility] Organization [facility] Address Unknown Phone Unavailable Care Team Providers Care Stock Blender Name Role Phone Della uCellar MD PCP Reason for Visit * Auth/Cert Status Reason Specialty Diagnoses / Referred By Referred To Procedures Contact Contact Diagnoses Pelvic mass Pelvic mass [R19.00] Pelvic mass in female P rocedures AR INTERPELVIABDOMI NAL AMPUTATION CHEY PELVECTOMY Encounter Details Date Type Department Care Team Description 12/14/2017 Anesthesia Main Operating Room Krunal Joaquin, SRNA Event [address] [place] [address] Anesthesia Record Procedure Name Responsible Anesthesia Start Time Anesthesia Stop Time Anesthesiologist CHEY PELVECTOMY (Left ) Renata Brennan MD 12/14/17 0759 12/14/17 1837 Date Time Event Comment 614 AN Equip Check 2017 0759 Anes Start 0806 An Start Data 0816 An Induction The patient was reevaluated immediately before moderate or deep sedation use and before anesthesia induction. 0820 An Intubation 0825 Anesthesia Ready 0830 Antibiotic Given 0835 Art Line 0836 Proc Start 1142 Stat Labs Drawn 1457 Anes Handoff Received report from resident; narcotics match. Urine is color of red koolaid, verified with resident that this is normal for her for this case. Resident stated that the bolus of 20 mg of Ketamine was bolused from the large vial/infusion pump. 1545 Stat Labs Drawn 1546 Quick Note Leg off 1546 Quick Note Leg off. Was just informed that there is a hole in the bladder. Melchor temp affected 1617 Quick Note Temp probe placed in nare. 1648 Quick Note Spoke with Jarob Pharmacist regarding redosing Gentamycin. He stated that it is fine not redosing at this time. 1649 Stat Labs Drawn 1825 An Extubation 1831 an stop data 1835 Handoff to RN I completed my SBAR handoff to the receiving nurse. 1836 An Stop Meds Name Total midazolam (VERSED) 1 mg/mL injection 2 mg fentaNYL PF (SUBLIMAZE) injection 550 mcg lidocaine (2%) 200 mg/10mL Injection 100 mg syringe propofol (DIPRIVAN) 200 mg/ 20 mL 120 mg injection (VIAL) rocuronium (ZEMURON) injection 180 mg ondansetron (ZOFRAN) injection 4 mg dexamethasone (DECADRON) 4 mg/mL 4 mg injection phenylephrine (SRINIVAS-SYNEPHRINE) 0.1 mg/mL 800 mcg injection (SYRINGE) sugammadex (BRIDION) 100 mg/mL iv soln 200 mg clindamycin (CLEOCIN) 600 mg/D5W 50 mL 1,800 mg IVPB gentamicin 100 mg/NS 100 mL IVPB 100 mg ketamine (KETALAR) 10 mg/mL injection 20 mg ketamine (KETALAR) infusion 178.86 mg acetaminophen (OFIRMEV) 1,000 mg 1,000 mg injection lactated ringers infusion 1,800 mL electrolyte-A (PLASMA-LYTE A PH 7.4) 2,000 mL infusion albumin 5% infusion (500 mL) 1,500 mL sodium chloride 0.9 % infusion (1000 1,600 mL mL bag) * Name O2 N2O Inspired N2O Air Sevoflurane Desflurane Inspired Desflurane Inspired Sevoflurane * Name Total DELIVER/TRANSFUSE RBCS (INTRAOP) 900 mL Type Details Placement Removal Wounds 11/30/17; 0853; Left; Buttocks; Surgical 11/30/17 0853 by (NOT for Incision; Carlos Manuel Rosales Drain, Sutures, Locust, Hussain Pressure xeroform, 4x4's, and tegaderm. Injuries) Wounds 11/30/17; 1427; Right, Anterior; Neck; 11/30/17 1427 by (NOT for Surgical Incision Amanda Juares Pressure Injuries) Wounds 12/14/17; 1748; Left; Abdomen; Ulcer 12/14/17 1748 by Manny, (NOT for (not from pressure) SANJAY Garcia Pressure Injuries) Peripheral 12/13/17; 1138; IV Therapy; L; Mid; 12/13/17 1138 by 1755 by Snavely, IV Forearm; 20 G; No; Ultrasound; 1; 1.75 Ramos Patton RN Sunshine inches; Therapy completed; 12/30/17; 1755 Peripheral 12/13/17; 1138; IV Therapy; L; Mid; 12/13/17 1138 by 1756 by Snavely, IV Upper Arm (cephalic); 20 G; No; Ramos Patton RN Sunshine Ultrasound; 1; 1.75 inches; Therapy completed; 12/30/17; 1756 [place] 12/14/17; Left; Hip; 10 FR; 12/29/17; 12/14/17 0000 by Keyona, 12/29/17 1030 by Bobby Lea 1030; Per Provider SANJAY Terry RN Drain Peripheral 12/14/17; (unknown); L; Other 12/14/17 0000 by 12/20/17 1555 by Shay Ortega (Comment); 12/20/17; 1555 Ruma Reynolds RN Denise Catheter ETT 12/14/17; 0820; Ventilated by mask (1); 12/14/17 0820 by Morgan, 1826 by Brian, Direct laryngoscopy, Stylet; MD Kimberlyn Srinivasan CRNA Single-Lumen; 7mm; Mac; 3; Oral; 1-Full view of the glottis; 1 insertion attempt; Auscultation, ETCO2 Detector; 21 centimeters; 12/14/17; 1826 Peripheral 12/14/17; 0830; Provider; R; Anterior; 12/14/17 0830 by Morgan , 12/20/17 0558 by Saini, IV Hand; 18 G; 1; 12/20/17; 0558 MD Scott Srinivasan RN Arterial 12/14/17; 0835 (created via procedure 12/14/17 0835 by Carolann, 12/15/17 1515 by Line documentation); L; Radial; 20 G; MD Rodolfo Yanez Lora, RN 12/15/17 (No longer draws blood; Dr. Villalobos notified); 1515; N Nephrouret 12/14/17; 0841; Left; 5 FR; 12/15/17; 12/14/17 0841 by Adams, 12/15/17 0800 by eral Drain 0800 (not present) SANJAY Phoenix Lora, RN Indwelling 12/14/17; 0842; Urology; 16 FR; Regular 12/14/17 0842 by Yearout, 12/14/17 1618 by Manny Urinary (Two-way), Other (Comment) (TEMPERATURE SANJAY Terry RN Catheter SENSING); 12/14/17; 1618 NG/OG Tube 12/14/17; 0850; Right Nare; 16 FR; 12/14/17 0850 by Gila, 12/18/17 0810 by Roosevelt, 12/18/17; 0810 MD Renata Srinivasan RN Epidural 12/14/17; 1600; (17 G SCIATIC 12/14/17 1600 by Manny, 0800 by CATHETER); U (LEFT SIDE); 12/15/17 (this SANJAY Garcia Lora, RN is a PNC; NOT Epidural); 0800 Indwelling 12/14/17; 1633; Urology; 20 FR; Regular 12/14/17 1633 by Manny, 01/10/18 0000 by Josiah Ga (Two-way); 01/10/18 SANJAY Garcia RN Catheter in this encounter Social History Tobacco Use [...] OR Notes * Anesthesia Postprocedure Evaluation - Kimberlyn Torres CRNA - 12/14/2017 6: 42 PM CDT Post-Anesthesia Evaluation Name: Beata Kaiser : 1965 Age: 52 y.o. Sex: female Procedure Date: 12/14/2017 Procedure: Procedure(s) with comments: CHEY PELVECTOMY - CASE LENGTH 5 HOURS CYSTORRHAPHY AND BLADDER NECK REPAIR, CYSTOSCOPY, LEFT ILIAC EXPOSURE Surgeon: Surgeon(s): Casa George MD Ashcraft, John H, DO Broghammer, Joshua, MD Broghammer, Joshua, MD Metcalf, Meredith, MD Templeton, Kimberly, MD Thors, Axel, DO Hance, Kirk, MD Stumpff, MD Adrienne Post-Anesthesia Vitals BP: (154)/(80) Temp: [36.9 C (98.4 F)] Pulse: [120] Respirations: [18 PER MINUTE] SpO2: [100 %] O2 Delivery: None (Room Air) (12/14 1836) SpO2 Pulse: [121] Post Anesthesia Evaluation Note Evaluation location: ICU Patient participation: recovered; patient participated in evaluation Level of consciousness: sleepy but conscious Pain management: adequate Hydration: normovolemia Temperature: 36.0C - 38.4C Airway patency: adequate Regional/Neuraxial: Peripheral nerve catheter in place Perioperative Events Perioperative events: no Post-op nausea and vomiting: no PONV Postoperative Status Cardiovascular status: hemodynamically stable and tachycardic Respiratory status: spontaneous ventilation Follow-up needed: none Additional comments: Ventilator settings: N/A Vasoactive Drips: N/A Blood products/Hemostatic Agents/Anticoagulants: PRBCs: 3 units Special Considerations: N/A Patient was transported with supplemental oxygen and routine cardiovascular monitoring, including pulse oximetry. Individuals present during transport include David NAVARRO, Mary NAVARRO, Brian TAVERA. The patient was admitted to the ICU under care of the critical care team. This information was communicated between anesthesia and the receiving team. Perioperative Events Perioperative Event: No Emergency Case Activation: No * Anesthesia Procedure Notes - Craig Uriostegui MD - 12/14/2017 8:40 AM CDT Associated Order(s): ANESTHESIA ARTERIAL LINE INSERTION Anesthesia Procedure: Arterial Line Placement A-LINE INSERTION [...] dry Observation: pt tolerated well Performed by: RENATA BRENNAN Authorized by: RENATA BRENNAN Associated attestation - Renata Brennan MD - 12/14/2017 9:05 AM CDT I was present during the entire procedure performed by a resident. * Anesthesia Preprocedure Evaluation - Craig Uriostegui MD - 12/13/2017 2:08 PM CDT Formatting of this note may be different from the original. Anesthesia Pre-Procedure Evaluation Name: Beata Kaiser : 1965 Age: 52 y.o. Sex: female Procedure Date: 12/14/2017 Procedure: Procedure(s) with comments: CHEY PELVECTOMY - CASE LENGTH 5 HOURS Physical Assessment Vital Signs (last filed in past 24 hours): BP: 133/83 (12/13 1000) Temp: 36.6 C (97.9 F) (12/13 1000) Pulse: 93 (12/13 1000) Respirations: 18 PER MINUTE (12/13 1000) SpO2: 96 % (12/13 1000) O2 Delivery: None (Room Air) (12/13 1000) Weight: 104.8 kg (231 lb 0.7 oz) (12/13 1115) Patient History Allergies Allergen Reactions Cephalexin SEE COMMENTS Face gets red, feels really hot Current Medications Medication Directions aspirin EC 81 [...] and Non-smoker No history of anesthetic complications () No family history of anesthetic complications Airway 11/30/17; 0804; Ventilated by mask with oral airway (2); Direct laryngoscopy , Stylet; Single-Lumen; 7mm; Mac; 3; Oral; 1-Full view of the glottis; 2 insertion attempts; Auscultation, ETCO2 Detector; 21 centimeters Pulmonary - negative Not a current smoker [...] No Hypertension, poorly controlled No angina GI/Hepatic/Renal - negative No GERD, No hx of liver disease No renal disease Neuro/Psych Chronic opioid use Psychiatric history Depression Musculoskeletal Back pain Endocrine/Other Diabetes, type 2 Blood dyscrasia (on xarelto for leg DVT) Malignancy Physical Exam Airway Findings Mallampati: II TM distance: >3 FB Neck ROM: full Mouth opening: good Airway patency: adequate Dental Findings: Negative Cardiovascular Findings: Rhythm: regular Rate: normal Pulmonary Findings: Breath sounds clear to auscultation. Neurological Findings: Normal mental status Diagnostic Tests Hematology: Lab Results Component Value Date HGB 12.7 12/14/2017 HCT 36.7 12/14/2017 PLTCT 275 12/14/2017 WBC 7.3 12/14/2017 MCV 87.2 12/14/2017 MCH 30.3 12/14/2017 MCHC 34.7 12/14/2017 MPV 7.7 12/14/2017 RDW 14.0 12/14/2017 General Chemistry: Lab Results Component Value Date NA 141 12/14/2017 K 4.1 12/14/2017 CL 106 12/14/2017 CO2 27 12/14/2017 GAP 8 12/14/2017 BUN 9 12/14/2017 CR 0.84 12/14/2017 GLU 141 12/14/2017 CA 9.4 12/14/2017 Coagulation: Lab Results Component Value Date PTT 29.3 12/14/2017 INR 1.0 11/30/2017 Anesthesia Plan ASA score: 3 Plan: general, invasive monitoring and regional Induction method: intravenous NPO status: acceptable Comments: (Discussed plan for GA with invasive monitoring with patient. Discussed risks/benefits. Questions answered.) Informed Consent Anesthetic plan and risks discussed with patient. Use of blood products discussed with patient; consented to blood products. Plan discussed with: anesthesiologist and resident. in this encounter Plan of Treatment Date Type Specialty Care Team Description 03/01/2018 Procedure Pass Cardiothoracic Surgery as of this encounter Results * ANESTHESIA ARTERIAL LINE INSERTION (12/14/2017 1:40 PM) Craig Gutierrez MD 12/14/20178:41 AM Anesthesia Procedure: Arterial Line [...] dry Observation: pt tolerated well Performed by: RENATA BRENNAN Authorized by: RENATA BRENNAN in this encounter Visit Diagnoses Not on filein this encounter Administered Medications Medication Order MAR Action Action Date Dose Rate Site acetaminophen (OFIRMEV) injection Given 12/14/2017 1,000 mg Administer over 15 Minutes, 17:56 CDT INTRA-PROCEDURE MED, Starting e 12/14/17 at 1756, Until Wed12/14/17 at 1839, Pain non-opioid: may be used alone or in combination with opioid analgesia, Anesthesia Intra-op albumin 5% infusion (500 mL) Given - New 12/14/2017 INTRA-PROCEDURE MED(CONT), Starting Wed Bag 12:40 CDT 12/14/17 at 1240, Until Discontinued, Anesthesia Intra-op Given - New Bag 12/14/2017 17:47 CDT clindamycin (CLEOCIN) 600 mg/D5W 50 mL Given 12/14/2017 900 mg IVPB 08:35 CDT Administer over 30 Minutes, INTRA-PROCEDURE MED, Starting e 12/14/17 at 0835, Until Wed12/14/17 at 1839, Anesthesia Intra-op Given 12/14/2017 900 mg 14:30 CDT DELIVER & TRANSFUSE RED BLOOD CELLS Given - New 12/14/2017 (INTRAOP ONLY) Bag 15:21 CDT STAT, On Wed12/14/17 at 1521, Lab Results Component Value Date HGB 12.7 12/14/2017 DELIVER & TRANSFUSE RED BLOOD CELLS Given - New 12/14/2017 (INTRAOP ONLY) Bag 15:56 CDT STAT, On Wed12/14/17 at 1558, Lab Results Component Value Date HGB 12.7 12/14/2017 DELIVER & TRANSFUSE RED BLOOD CELLS Given - New 12/14/2017 (INTRAOP ONLY) Bag 16:24 CDT STAT, On Wed12/14/17 at 1625, Lab Results Component Value Date HGB 12.7 12/14/2017 dexamethasone (DECADRON) injection Given 12/14/2017 4 mg Intravenous, INTRA-PROCEDURE MED, 09:15 CDT Starting Wed12/14/17 at 0915, Until Wed12/14/17 at 1839, Nausea/Vomiting Injectable, Anesthesia Intra-op electrolyte-A (PLASMA-LYTE A PH 7.4) Given - New 12/14/2017 injection Bag 08:50 CDT INTRA-PROCEDURE MED(CONT), Starting Wed12/14/17 at 0850, Until Discontinued, Anesthesia Intra-op Given - New Bag 12/14/2017 12:35 CDT Given - New Bag 12/14/2017 13:01 CDT fentaNYL citrate PF (SUBLIMAZE) Given 12/14/2017 50 mcg injection 15:34 CDT INTRA-PROCEDURE MED, Starting Wed12/14/17 at 0806, Until Wed12/14/17 at 1839, Pain Injectable, Anesthesia Intra-op Given 12/14/2017 50 mcg 18:27 CDT Given 12/14/2017 50 mcg 18:34 CDT gentamicin 100 mg/NS 100 mL IVPB Given 12/14/2017 100 mg Administer over 60 Minutes, 08:35 CDT INTRA-PROCEDURE MED, Starting Wed12/14/17 at 0835, Until Wed12/14/17 at 1839, Anesthesia Intra-op ketamine (KETALAR) infusion Given - 12/14/2017 200 2.1 mL/hr INTRA-PROCEDURE MED(CONT), Starting Tu Bag 08:50 CDT mcg/kg/hr 12/14/17 at 0850, Until Discontinued, Anesthesia Intra-op ketamine (KETALAR) injection Given 12/14/2017 20 mg INTRA-PROCEDURE MED, Starting Wed 08:40 CDT 12/14/17 at 0840, Until Wed12/14/17 at 1839, Anesthesia Intra-op lactated ringers infusion Given - New 12/14/2017 1,000 mL 20 mL/hr 1,000 mL, 1,000 mL, Intravenous, at 20 Bag 06:40 CDT mL/hr, CONTINUOUS, Starting Wed12/14/17 at 0630, Until Wed12/14/17 at 1856, Pre-Op Given - New Bag 12/14/2017 11:18 CDT lidocaine (PF) injection Given 12/14/2017 100 mg INTRA-PROCEDURE MED, Starting Wed 08:14 CDT 12/14/17 at 0814, Until Wed12/14/17 at 1839, Anesthesia Intra-op midazolam (VERSED) injection Given 12/14/2017 2 mg Intravenous, INTRA-PROCEDURE MED, 08:02 CDT Starting Wed12/14/17 at 0802, Until Wed12/14/17 at 1839, Agitation Injectable, Anxiety Injectable, Anesthesia Intra-op ondansetron (ZOFRAN) injection Given 12/14/2017 4 mg Intravenous, INTRA-PROCEDURE MED, 17:25 CDT Starting Wed12/14/17 at 1725, Until Wed12/14/17 at 1839, Nausea/Vomiting Injectable, Anesthesia Intra-op phenylephrine in NS Injection Given 12/14/2017 100 mcg Intravenous, INTRA-PROCEDURE MED, 09:10 CDT Starting Wed12/14/17 at 0910, Until Wed12/14/17 at 1839, Symptomatic Hypotension, Anesthesia Intra-op Given 12/14/2017 100 mcg 15:41 CDT Given 12/14/2017 200 mcg 15:49 CDT propofol (DIPRIVAN) injection Given 12/14/2017 120 mg INTRA-PROCEDURE MED, Starting Wed 08:16 CDT 12/14/17 at 0816, Until Wed12/14/17 at 1839, Anesthesia Intra-op rocuronium (ZEMURON) injection Given 12/14/2017 30 mg Intravenous, INTRA-PROCEDURE MED, 13:00 CDT Starting Wed12/14/17 at 0817, Until Wed12/14/17 at 1839, Anesthesia Intra-op Given 12/14/2017 20 mg 14:25 CDT Given 12/14/2017 10 mg 15:14 CDT sodium chloride 0.9 % infusion Given - New 12/14/2017 INTRA-PROCEDURE MED(CONT), Starting Tue Bag 15:10 CDT 12/14/17 at 1510, Until Discontinued, Anesthesia Intra-op Given - New Bag 12/14/2017 16:06 CDT sugammadex (BRIDION) injection Given 12/14/2017 200 mg Intravenous, INTRA-PROCEDURE MED, 18:16 CDT Starting 12/14/17 at 1816, Until 12/14/17 at 1839, Anesthesia Intra-op in this encounter
--- OUTSIDE RECORDS SUMMARY | 2018-03-06 22:34 | XMS REPORT ---
Author Author LORIN ROSALES Organization [facility] Address [address] [place] [address] Care Team Providers Care Inventory Representative Name Role Phone LORIN ROSALES Unavailable PROBLEMS Type Condition ICD9-CM Code [id number] Code Onset Dates Condition Status SNOMED Code Problem Unspecified disorder of skin and subcutaneous tissue 709.9 Active 89364281 Problem Other and unspecified noninfectious gastroenteritis and colitis 558.9 Active 03518844 Problem Lumbago 724.2 Active 483408973 Problem Left sided sciatica M54.32 Active 59284140 Problem Allergic rhinitis due to pollen 477.0 Active 24443797 Problem Varicose veins of lower extremities with inflammation 454.1 Active 59435231 Problem Acute sinusitis, unspecified 461.9 Active 93460750 Problem Allergic rhinitis, cause unspecified 477.9 Active 68792908 Problem Dysfunction of Eustachian tube 381.81 Active 62921455 Problem Need for prophylactic vaccination and inoculation, Influenza V04.81 Active 627597469 Problem Cough 786.2 Active 48122030 Problem Pain in soft tissues of limb 729.5 Active 57620570 Problem Contusion of unspecified site 924.9 Active 614175381 Problem Pain in joint, lower leg 719.46 Active 998370633 Problem Nausea with vomiting 787.01 Active 20480316 Problem Pain in joint, pelvic region and thigh 719.45 Active 429261905 ALLERGIES Substance Reaction Event Type Date Status Cephalexin Unknown Drug Allergy Jun, Active ENCOUNTERS Encounter Location Date Diagnosis [facility] [address], [place] [address] Jun, Left sided sciatica M54.32 [facility] [id number], [place] [address] Sep, Pharyngitis due to other organism J02.8 [facility] [address], [place] [address] Jul, [facility] [address], [place] [address] Jul, [facility] [address], [place] [address] Jul, Left knee pain M25.562 [facility] [id number] [place] [address] Jun, [facility] [address], [place] [address] May, [facility] [id number] [place] [address] May, [facility] [address], [place] [address] May, [facility] [id number] [place] [address] May, [facility] [address], [place] [address] Apr, Lumbago 724.2 and Diabetes mellitus 250.00 [facility] [address], [place] [address] Apr, [facility] [address], [place] [address] Mar, [facility] [address], [place] [address] Mar, [facility] [address], [place] [address] Mar, [facility] [address], [place] [address] Feb, [facility] [id number] [address] Feb, Labyrinthitis 386.30 [facility] [address] [facility] [id number] [address] January, Diabetes mellitus 250.00 ; HTN (hypertension) 401.9 ; Hypothyroid 244.9 and Hypercholesterolemia 272.0 [facility] [id number] [place] [address] January, [facility] [address], [place] [address] January, [facility] [address] [facility] [id number] [place] [address] January, [facility] [id number] [place] [address]- 39[address] Dec, [facility] [address] [address] Dec, [facility] [id number] [place] [address]- 8963 Nov, [facility] [address], [place] [address] 4[address] Nov, [facility] [address] [address] Nov, [facility] [id number] [address] Nov, [facility] [id number] [address] 3[address] Nov, [facility] [id number], [place] [address] 365[address] Nov, [facility] [id number], [place] [address]- 4646 Oct, [facility] [id number], [place] [address]- 2546 Oct, [facility] [id number], [place] [address] Oct, [facility] [place] [facility] [address] [id number] [place] [address]- 4495 Oct, [facility] [place] [facility] [address] [id number] [place] [address]- 3260 Oct, [facility] [place] [facility] [address] [id number] [place] [address]- 6099 Oct, [facility] [place] [facility] [address] [id number] [place] [address]- 7962 Sep, [facility] [place] [facility] [address] [id number] [place] [address]- 8296 Sep, [facility] [place] [facility] [address] [id number] [place] [address]- 1211 Sep, [facility] [place] [facility] [address] [id number] [place] [address]- 2939 Sep, [facility] [place] [facility] [address] [id number] [place] [address]- 6358 Sep, [facility] [place] [facility] [address] [id number] [place] [address]- 3549 Sep, [facility] [place] [facility] [address] [id number] [place] [address]- 3917 Sep, [facility] [place] [facility] [address] [id number] [place] [address]- 2083 Sep, [facility] [place] [facility] [address] [id number], [place] [address]- 7184 Aug, [facility] [place] [facility] [address] [id number] [place] [address]- 0753 Aug, [facility] [place] [facility] [address] [id number] [place] [address]- 3290 Jul, [facility] [place] [facility] [address] [id number] [place] [address]- 3025 Jul, [facility] [place] [facility] [address] [id number] [place] [address]- 2265 Jul, [facility] [place] [facility] [address] [id number] [place] [address]- 6379 Jul, [facility] [place] [facility] [address] [id number] [place] [address]- 4754 Jul, [facility] [place] [facility] [address] [id number] [place] [address]- 9493 Jun, [facility] [place] [facility] [address] [id number] [place] [address]- 2867 Jun, [facility] [place] [facility] [address] [id number] [place] [address]- 1483 Jun, [facility] [place] [facility] [address] [id number] [place] [address]- 1465 Jun, [facility] [place] [facility] [address] [id number] [place] [address]- 1632 Jun, [facility] [place] [facility] [address] [id number] [place] [address]- 3587 Jun, [facility] [place] [facility] [address] [id number] [place] [address]- 8970 May, [facility] [place] [facility] [address] [id number] [place] [address]- 9278 May, [facility] [place] [facility] [address] [id number] [place] [address]- 2547 May, [facility] [place] [facility] [address] [id number] [place] [address]- 6352 May, 2013 [facility] [place] [facility] [address] [id number] [place] [address]- 2650 May, [facility] [place] [facility] [address] [id number] [place] [address]- 3185 May, [facility] [place] [facility] [address] [id number] [place] [address]- 7043 Apr, [facility] [place] [facility] [address] [id number] [place] [address]- 7336 Apr, [facility] [place] [facility] [address] [id number] [place] [address]- 2091 Apr, [facility] [place] [facility] [address] [id number] [place] [address]- 8950 Apr, [facility] [place] [facility] [address] [id number] [place] [address]- 6257 Apr, [facility] [place] [facility] [address] [id number] [place] [address]- 8971 Apr, [facility] [place] [facility] [address] [id number] [place] [address]- 7547 Apr, [facility] [place] [facility] [address] [id number] [place] [address]- 4332 Apr, [facility] [place] [facility] [address] [id number] [place] [address]- 4582 Apr, [facility] [place] [facility] [address] [id number] [place] [address]- 8444 Mar, [facility] [place] [facility] [address] [id number] [place] [address]- 4133 Mar, [facility] [place] [facility] [address] [id number] [place] [address]- 2262 Mar, [facility] [place] [facility] [address] [id number] [place] [address]- 5862 Mar, [facility] [place] [facility] [address] [id number] [place] [address]- 6524 Mar, [facility] [place] [facility] [address] [id number] [place] [address]- 5504 Feb, [facility] [place] [facility] [address] [id number] [place] [address]- 2996 Feb, [facility] [place] [facility] [address] [id number] [place] [address]- 0194 Feb, [facility] [place] [facility] [address] [id number] [place] [address]- 6705 Feb, [facility] [place] [facility] [address] [id number] [place] [address]- 6648 Feb, [facility] [place] [facility] [address] [id number] [place] [address]- 1882 Feb, [facility] [place] [facility] [address] [id number] [place] [address]- 1344 January, [facility] [place] [facility] [address] [id number] [place] [address]- 0258 January, [facility] [place] [facility] [address] [id number] [place] [address]- 1849 January, [facility] [place] [facility] [address] [id number] [place] [address]- 5445 January, [facility] [place] [facility] [address] [id number] [place] [address]- 9854 Dec, [facility] [place] [facility] [address] [id number] [place] [address]- 2365 Dec, [facility] [place] [facility] [address] [id number] [place] [address]- 6562 Dec, [facility] [place] [facility] [address] [id number] [place] [address]- 9791 Dec, [facility] [place] [facility] [address] [id number] [place] [address]- 1351 Dec, [facility] [place] [facility] [address] [id number] [place] [address]- 7751 Dec, [facility] [place] [facility] [address] [id number] [place] [address]- 5495 Dec, [facility] [place] [facility] [address] [id number] [place] [address]- 6832 Dec, [facility] [place] [facility] [address] [id number] [place] [address]- 0384 Dec, [facility] [place] [facility] [address] [id number] [place] [address]- 2819 Nov, [facility] [place] [facility] [address] [id number] [place] [address]- 6951 Nov, [facility] [place] [facility] [address] [id number] [place] [address]- 0805 Nov, [facility] [place] [facility] [address] [id number] [place] [address]- 2065 Nov, [facility] [place] [facility] [address] [id number] [place] [address]- 0173 Nov, [facility] [place] [facility] [address] [id number] [place] [address]- 7073 Nov, [facility] [place] [facility] [address] [id number] [place] [address]- 1267 Nov, [facility] [place] [facility] [address] [id number] [place] [address]- 7348 Nov, [facility] [place] [facility] [address] [id number] [place] [address]- 1044 Nov, [facility] [place] [facility] [address] [id number] [place] [address]- 3934 Nov, [facility] [place] [facility] [address] [id number] [place] [address]- 0468 Oct, [facility] [place] [facility] [address] [id number] [place] [address]- 4821 Oct, [facility] [place] [facility] [address] [id number] [place] [address]- 8834 Oct, [facility] [place] [facility] [address] [id number] [place] [address]- 7172 Oct, [facility] [place] [facility] [address] [id number] [place] [address]- 4156 Oct, [facility] [address] [id number] [place] [address]- 4343 Oct, [facility] [place] [facility] [address] [id number] [place] [address]- 3242 Sep, [facility] [place] [facility] [address] [id number] [place] [address]- 3010 Sep, [facility] [place] [facility] [address] [id number] [place] [address]- 3302 Sep, [facility] [place] [facility] [address] [id number] [place] [address]- 9217 Sep, [facility] [place] [facility] [address] [id number] [place] [address]- 8928 Sep, [facility] [place] [facility] [address] [id number] [place] [address]- 5987 Sep, [facility] [place] [facility] [address] [id number] [place] [address]- 4389 Sep, [facility] [place] [facility] [address] [id number] [place] [address]- 2445 Sep, [facility] [place] [facility] [address] [id number] [place] [address]- 1480 Aug, [facility] [place] [facility] [address] [id number], [place] [address]- 2674 Aug, [facility] [place] [facility] [address] [id number], [place] [address]- 0203 Aug, [facility] [place] [facility] [address] [id number] [place] [address]- 3788 Aug, [facility] [place] [facility] [address] [id number] [place] [address]- 1817 Jul, [facility] [place] [facility] [address] [id number] [place] [address]- 0316 Jul, [facility] [place] [facility] [address] [id number] [place] [address]- 1155 Jul, [facility] [address] [id number] [place] [address]- 7421 Jul, [facility] [place] [facility] [address] [id number] [place] [address]- 9566 Jun, [facility] [place] [facility] [address] [id number] [place] [address]- 3754 Jun, [facility] [place] [facility] [address] [id number] [place] [address]- 2524 Jun, [facility] [place] [facility] [address] [id number] [place] [address]- 9762 23 May, 2013 [facility] [place] [facility] [address] [id number] [place] [address]- 5099 23 May, 2012 [facility] [place] [facility] [address] [id number] [place] [address]- 6657 17 May, 2012 [facility] [address] [id number] [place] [address]- 0710 07 May, 2013 [facility] [place] [facility] [address] [id number] [place] [address]- 6203 06 May, 2013 [facility] [place] [facility] [address] [id number] [place] [address]- 6510 03 May, 2013 [facility] [place] [facility] [address] [id number] [place] [address]- 6124 Apr, [facility] [place] [facility] [address] [id number] [place] [address]- 2541 Apr, [facility] [place] [facility] [address] [id number] [place] [address]- 5424 Apr, [facility] [place] [facility] [address] [id number] [place] [address]- 2251 Apr, [facility] [place] [facility] [address] [id number] [place] [address]- 1501 Apr, [facility] [address] [id number] [place] [address]- 5650 Mar, [facility] [place] [facility] [address] [id number] [place] [address]- 5165 Mar, [facility] [address] [id number] [place] [address]- 1270 Mar, [facility] [place] [facility] [address] [id number] [place] [address]- 5416 Feb, [facility] [address] [id number] [place] [address]- 3966 January, [facility] [place] [facility] [address] [id number] [place] [address]- 4594 Dec, [facility] [place] [facility] [address] [id number] [place] [address]- 6846 Nov, [facility] [place] [facility] [address] [id number] [place] [address]- 6436 Nov, [facility] [place] [facility] [address] [id number] [place] [address]- 7701 Oct, [facility] [place] [facility] [address] [id number] [place] [address]- 1057 Oct, [facility] [place] [facility] [address] [id number] [place] [address]- 2078 Sep, [facility] [place] [facility] [address] [id number], [place] [address]- 7244 Sep, [facility] [place] [facility] [address] [id number] [place] [address]- 9048 Sep, [facility] [place] [facility] [address] [id number] [place] [address]- 1116 Aug, [facility] [place] [facility] [address] [id number] [place] [address]- 2678 Aug, [facility] [place] [facility] [address] [id number] [place] [address]- 6876 Aug, [facility] [place] [facility] [address] [id number] [place] [address]- 0278 Aug, [facility] [place] [facility] [address] [id number] [place] [address]- 3899 Jul, [facility] [place] [facility] [address] [id number] [place] [address]- 3609 Jul, [facility] [place] [facility] [address] [id number] [place] [address]- 4353 Jun, [facility] [place] [facility] [address] [id number] [place] [address]- 2287 Jun, [facility] [place] [facility] [address] [id number] [place] [address]- 0103 Jun, [facility] [place] [facility] [address] [id number] [place] [address]- 9153 Jun, [facility] [place] [facility] [address] [id number] [place] [address]- 2263 Jun, [facility] [place] [facility] [address] [id number] [place] [address]- 6287 Jun, [facility] [place] [facility] [address] [id number] [place] [address]- 5078 Jun, [facility] [place] [facility] [address] [id number] [place] [address]- 7575 Apr, [facility] [place] [facility] [address] [id number] [place] [address]- 1082 Apr, [facility] [place] [facility] [address] [id number] [place] [address]- 9311 Apr, [facility] [place] [facility] [address] [id number] [place] [address]- 4567 Mar, [facility] [place] [facility] [address] [id number] [place] [address]- 6464 Mar, [facility] [place] [facility] [address] [id number] [place] [address]- 9105 Feb, [facility] [place] [facility] [address] [id number] [place] [address]- 5216 January, [facility] [place] [facility] [address] [id number] [place] [address]- 1696 January, [facility] [place] [facility] [address] [id number] [place] [address]- 3385 Dec, [facility] [place] [facility] [address] [id number] [place] [address]- 9023 Dec, [facility] [place] [facility] [address] [id number] [place] [address]- 1226 Sep, [facility] [address] [id number] [place] [address]- 4618 Sep, [facility] [address] [id number] [place] [address]- 5335 Sep, [facility] [address] [id number] [place] [address]- 9907 Sep, [facility] [address] [id number] [place] [address]- 6211 Aug, [facility] [place] [facility] [address] [id number] [place] [address]- 3613 Aug, [facility] [place] [facility] [address] [id number] [place] [address]- 7165 Jul, [facility] [place] [facility] [address] [id number] [place] [address]- 4185 Jul, [facility] [place] [facility] [address] [id number] [place] [address]- 1539 Jul, [facility] [place] [facility] [address] [id number] [place] [address]- 0311 07 Jul, 2011 [facility] [place] [facility] [address] [id number], [place] [address]- 3806 Jul, [facility] [address] [facility] [id number], [place] [address] 2546 Jul, [facility] [address] [facility] [id number], [place] [address] 2546 Jul, [facility] [address] [facility] [id number], [place] [address]- 8376 January, IMMUNIZATIONS No Known Immunizations SOCIAL HISTORY Never Assessed REASON FOR VISIT Left leg pain--tcuppettRN, -Left hip and leg pain for about a month. Taking medication without relief PLAN OF CARE Activity Details Follow Up prn with PCP Orrender Reason: VITAL SIGNS Height 65 in 2017-06-29 Weight 239.4 lbs 2017-06-29 Temperature 98.1 degrees Fahrenheit 2017-06-29 Heart Rate 90 bpm 2017-06-29 Respiratory Rate 18 2017-06-29 BMI 39.83 kg/m2 2017-06-29 Blood pressure systolic 154 mmHg 2017-06-29 Blood pressure diastolic 90 mmHg 2017-06-29 MEDICATIONS Medication Instructions Dosage Frequency Start Date End Date Duration Status Farxiga 10 MG TAKE ONE TABLET BY MOUTH ONCE DAILY Active Test strips Test Strips one touch ultra test strips, dx code 250.00 12h January, Active Tramadol HCl 50MG TAKE TWO TABLETS BY MOUTH EVERY 12 HOURS NEEDED 28 Active Ibuprofen 600 MG Orally Three times a day 1 tablet 8h Apr, Active Estradiol 1 MG Orally Once a day 1 tablet 24h Active Aspirin 81 MG Orally Once a day 1 tablet 24h Active Cyclobenzaprine HCl 10 mg Orally before bed 1 tablet as needed Jun, Jun, 14 days Active Lovastatin 40 MG take 1 tablet (20 mg) by oral route once daily with the evening meal Sep, Active Meloxicam 15MG TAKE ONE TABLET BY MOUTH ONCE DAILY 90 Active Lisinopril 10MG TAKE ONE TABLET BY MOUTH ONCE DAILY 90 Active BusPIRone HCl 30MG TAKE ONE TABLET BY MOUTH TWICE DAILY 30 Active BuPROPion HCl 150MG take 1 tablet (150 mg) by oral route 2 times per day 30 Active MedroxyPROGESTERone Acetate 2.5 MG Orally Once a day 1 tablet 24h Active Potassium Chloride ER 10MEQ TAKE ONE TABLET BY MOUTH ONCE DAILY 90 Active Metformin HCl 1000MG TAKE ONE TABLET BY MOUTH TWICE DAILY WITH MEALS 90 Active Levothyroxine Sodium 150MCG TAKE ONE TABLET BY MOUTH ONCE DAILY 90 Active PredniSONE 20 mg Orally Once a day 1 tablet 24h Jun, Jun, 05 days Active RESULTS No Results PROCEDURES No Known procedures INSTRUCTIONS MEDICATIONS ADMINISTERED No Known Medications MEDICAL (GENERAL) HISTORY Type Description Date Medical History hypertension Medical History hyperlipidemia Medical History type II diabetes Medical History depression Medical History anxiety Medical History Hypothyroidism Medical History Anxiety disorder Surgical History jaw surgery Surgical History x 3 Hospitalization History surgeries
--- OUTSIDE RECORDS SUMMARY | 2018-03-06 22:34 | XMS REPORT | Encounter Summary ---
Author Author [facility] Organization [facility] Address Unknown Phone Unavailable Care Team Providers Care Steam Conditioner Operator Name Role Phone Della Cuellar MD PCP Reason for Visit * Reason Comments Wound Check Encounter Details Date Type Department Care Team Description 12/06/2017 Telephone [facility] Tamiko Luther MD Wound Check Physicians - Orthopedics [address] [facility] [address] FLO[address] [place] [address] ORTHOPEDICS [facility] [phone] [place] [address] Social History Tobacco Use Types [...] encounter Miscellaneous Notes * Telephone Encounter - Sharita Waters - 12/06/2017 1:04 PM CDT Returned Beata's call. After waking up this AM, she had slight swelling around her incision site. No redness, warmth or drainage. Advised her that it is probably due to positional swelling from sleeping overnight. She stated it has already started to go down. Advised that if it gets worse or continues to stay the same, to send pictures and I would forward to Dr. Luther. Beata stated understanding. in this encounter Plan of Treatment Date Type Specialty Care Team Description 03/01/2018 Procedure Pass Cardiothoracic Surgery as of this encounter Visit Diagnoses Not on filein this encounter
--- OUTSIDE RECORDS SUMMARY | 2018-03-06 22:36 | XMS REPORT | Continuity of Care Document ---
Author Author [facility] Address Unknown Phone Unavailable Allergies Active Description Code Type Severity Reaction Onset Reported/Identified Relationship to Patient Clinical Status Yes cephalexin [id number] Drug Allergy Mild N/A 03/05/2010 Yes cephalexin Drug Allergy 04/10/2010 Yes cephalexin Drug Allergy N/A N/A 04/10/2010 Yes cephalexin [id number] Drug Allergy Mild FACE GETS RED, 09/16/2015 [...] KOROMA APRN 692.9 DERMATITIS CONTACT UNSPECIFIED 04/10/2010 JONY [...] MD 401.9 ESSENTIAL HYPERTENSION 02/03/2011 YUNG CASHERO DOCTOR OF NAPRAPATHY, ÁLVARO N 244.9 HYPOTHYROIDISM PRIMARY 02/03/2011 YUNG CASHERO DOCTOR OF NAPRAPATHY, ÁLVARO N 250.00 DIABETES MELLITUS TYPE 2 02/03/2011 YUNG CASHERO DOCTOR OF NAPRAPATHY, ÁLVARO N 272.0 HYPERCHOLESTEROLEMIA 02/03/2011 YUNG CASHERO DOCTOR OF NAPRAPATHY, ÁLVARO N 401.9 ESSENTIAL HYPERTENSION 02/03/2011 FRANCI DOCTOR OF NAPRAPATHY, ALBERTO R 244.9 HYPOTHYROIDISM PRIMARY 02/03/2011 FRANCI DOCTOR OF NAPRAPATHY, ALBERTO R 250.00 DIABETES MELLITUS TYPE 2 02/03/2011 FRANCI DOCTOR OF NAPRAPATHY, ALBERTO R 272.0 HYPERCHOLESTEROLEMIA 02/03/2011 FRANCI DOCTOR OF NAPRAPATHY, ALBERTO R 401.9 ESSENTIAL HYPERTENSION 02/03/2011 ANGELITO [...] GARCIA MD 401.9 ESSENTIAL HYPERTENSION 02/03/2011 FRANCI DOCTOR OF NAPRAPATHY, ALBERTO R 244.9 HYPOTHYROIDISM PRIMARY 02/03/2011 FRANCI DOCTOR OF NAPRAPATHY, ALBERTO R 250.00 DIABETES MELLITUS TYPE 2 02/03/2011 FRANCI DOCTOR OF NAPRAPATHY, ALBERTO R 272.0 HYPERCHOLESTEROLEMIA 02/03/2011 FRANCI DOCTOR OF NAPRAPATHY, ALBERTO R 401.9 ESSENTIAL HYPERTENSION 02/03/2011 JOSE [...] 06/21/2012 787.01 NAUSEA WITH VOMITING 06/21/2012 CASSIE OYRK APRN 787.01 NAUSEA WITH VOMITING 06/21/2012 BREANNA [...] PAIN IN JOINT INVOLVING LOWER LEG 08/21/2013 JOYN GARCIA MD 724.2 LUMBAGO 08/21/2013 JONY GARCIA [...] JONY GARCIA MD 461.9 SINUSITIS ACUTE 11/02/2013 JNOY GARCIA MD 786.2 COUGH 12/07/2013 JONY GARCIA [...] 477.0 ALLERGIC RHINITIS DUE TO POLLEN 05/23/2014 EDIE HARKINS DO 709.9 UNSPECIFIED DISORDER OF SKIN [...] Kelley Ot Z01.818 09/06/2015 GISSELL NAVARRO, EVELYN Kelley Ot Z12.11 09/10/2015 GISSELL NAVARRO, EVELYN Kelley Ot K43.9 09/10/2015 GISSELL NAVARRO, EVELYN Kelley Ot Z01.812 09/10/2015 GISSELL NAVARRO, EVELYN Kelley Ot Z11.2 09/16/2015 GISSELL NAVARRO, EVELYN Kelley Ot E11.9 TYPE 2 DIABETES MELLITUS WITHOUT COMPLIC 09/16/2015 GISSELL NAVARRO, EVELYN Kelley Ot K43.9 VENTRAL HERNIA WITHOUT OBSTRUCTION OR GA 09/18/2015 JOE VASQUEZ M LEAD PRODUCER Ot M25.462 09/18/2015 VANPETERELAELUCIANO JOE M LEAD PRODUCER Ot M25.562 09/19/2015 VANPETERELAELUCIANO JOE M LEAD PRODUCER Ot M25.462 09/19/2015 VANPETERELAERE JOE M LEAD PRODUCER Ot M25.562 09/19/2015 GISSELL NAVARRO, EVELYN Kelley Ot K43.9 09/19/2015 GISSELL NAVARRO, EVELYN Kelley Ot Z01.812 09/19/2015 GISSELL NAVARRO, EVELYN Kelley Ot Z11.2 03/09/2016 Ot V76.12 OTH SCREEN MAMMO-MALIGN NEOPLASM OF JOSE 03/09/2016 Ot V76.12 OTH SCREEN MAMMO-MALIGN NEOPLASM OF JOSE 03/09/2016 BREANNA FIGUEROA LEAD PRODUCER Ot 719.46 JOINT PAIN-L/LEG 03/10/2016 Ot V76.12 OTH SCREEN MAMMO-MALIGN NEOPLASM OF JOSE 03/10/2016 Ot V76.12 OTH SCREEN MAMMO-MALIGN NEOPLASM OF JOSE 03/10/2016 BREANNA FIGUEROA LEAD PRODUCER Ot 719.46 JOINT PAIN-L/LEG 11/05/2016 YADIRA NAVARRO, [...] MAMMO-MALIGN NEOPLASM OF JOSE 02/23/2017 BREANNA FIGUEROA LEAD PRODUCER Ot 719.46 JOINT PAIN-L/LEG 02/25/2017 CHANTE MAHAJAN DOCTOR OF NAPRAPATHY Ot M19.071 PRIMARY OSTEOARTHRITIS, RIGHT ANKLE AND 02/25/2017 CHANTE MAHAJAN DOCTOR OF NAPRAPATHY Ot M77.31 CALCANEAL SPUR, RIGHT FOOT 2017 [...] LUMBAR REGION WITHOUT N 10/28/2017 TIMO RHOADES DOCTOR OF NAPRAPATHY Ot M79.605 PAIN IN LEFT LEG 10/28/2017 TIMO RHOADES DOCTOR OF NAPRAPATHY Ot R22.42 LOCALIZED SWELLING, MASS AND LUMP, LEFT 11/02/2017 OBED STYLES DOLINE S Ot M79.89 OTHER SPECIFIED SOFT TISSUE DISORDERS 11/02/2017 OBED STYLES DOLINE S Ot M79.89 OTHER SPECIFIED SOFT TISSUE DISORDERS 11/07/2017 OBED STYLES DOLINE S Ot M79.89 OTHER SPECIFIED SOFT TISSUE DISORDERS 11/16/2017 TIMO RHOADES DOCTOR OF NAPRAPATHY Ot M79.605 PAIN IN LEFT LEG 11/16/2017 TIMO RHOADES DOCTOR OF NAPRAPATHY Ot R22.42 LOCALIZED SWELLING, MASS AND LUMP, LEFT 11/22/2017 ROLANDO ATWOOD APRN Ot F32.9 MAJOR DEPRESSIVE DISORDER, SINGLE EPISOD 11/22/2017 ROLANDO ATWOOD APRN Ot F41.9 ANXIETY DISORDER, UNSPECIFIED 11/22/2017 ROLANDO ATWOOD APRN Ot I82.422 ACUTE EMBOLISM AND THROMBOSIS OF LEFT IL 11/22/2017 ROLANDO ATWOOD APRN Ot M62.89 OTHER SPECIFIED DISORDERS OF MUSCLE 11/22/2017 ROLANDO ATWOOD APRN Ot M79.89 OTHER SPECIFIED SOFT TISSUE DISORDERS 11/22/2017 ROLANDO ATWOOD APRN Ot 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 11/22/2017 ROLANDO ATWOOD APRN Ot Z79.84 HOT DIMPLING MACHINE OPERATOR (CURRENT) USE OF ORAL HYPOGLYC 11/22/2017 ROLANDO ATWOOD APRN Ot Z88.1 ALLERGY STATUS TO OTHER ANTIBIOTIC AGENT 11/23/2017 OBED STYLES DOLINE S Ot M79.89 OTHER SPECIFIED SOFT TISSUE DISORDERS 11/24/2017 ROLANDO ATWOOD APRN Ot F32.9 MAJOR DEPRESSIVE DISORDER, SINGLE EPISOD 11/24/2017 ROLANDO ATWOOD APRN Ot F41.9 ANXIETY DISORDER, UNSPECIFIED 11/24/2017 ROLANDO ATWOOD APRN Ot I82.422 ACUTE EMBOLISM AND THROMBOSIS OF LEFT IL 11/24/2017 ROLANDO ATWOOD APRN Ot M62.89 OTHER SPECIFIED DISORDERS OF MUSCLE 11/24/2017 ROLANDO ATWOOD APRN Ot M79.89 OTHER SPECIFIED SOFT TISSUE DISORDERS 11/24/2017 ROLANDO ATWOOD APRN Ot 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 11/24/2017 ROLANDO ATWOOD APRN Ot Z79.84 [facility] (CURRENT) USE OF ORAL HYPOGLYC 11/24/2017 ROLANDO ATWOOD APRN Ot Z88.1 ALLERGY STATUS TO OTHER ANTIBIOTIC AGENT 11/29/2017 DAVID NAVARRO, CORTNEY Martínez Ot R91.8 OTHER NONSPECIFIC ABNORMAL FINDING OF GERALDO Procedures Code [place] [address] A1C (IN-HOUSE) 10/13/2012 48818 MICRO ALBUMIN-IN HOUSE 10/13/2012 78107 ROUTINE VENIPUNCTURE 10/24/2012 36512 CMP 10/24/2012 50027 LIPID PANEL 10/24/2012 3114410 GFR CALC (RESULT ONLY) 10/24/2012 23380 TSH 10/24/2012 16187 A1C (IN-HOUSE) 01/23/2013 11542 A1C (IN-HOUSE) 05/02/2013 77423 ROUTINE VENIPUNCTURE 09/27/2013 36234 URIC ACID 09/27/2013 32558 A1C (IN-HOUSE) 12/07/2013 48532 MICRO ALBUMIN-IN HOUSE 12/07/2013 53290 ROUTINE VENIPUNCTURE 12/20/2013 4020119 GFR CALC (RESULT ONLY) 12/20/2013 35379 CMP 12/20/2013 21105 LIPID PANEL 12/20/2013 12624 TSH 12/20/2013 56351 A1C (IN-HOUSE) 03/12/2014 24265 A1C (IN-HOUSE) 06/14/2014 76772 OXIMETRY 10/03/2014 20624 A1C (IN-HOUSE) 10/03/2014 34798 A1C (IN-HOUSE) 12/28/2014 Results Test Result Range Complete blood count (CBC) with automated white blood cell (WBC) differential - 11/22/17 10:55 Blood leukocytes automated count (number/volume) 7.6 10*3/uL 4.3-11.0 Blood erythrocytes automated count (number/volume) 4.47 10*6/uL 4.35-5.85 Venous blood hemoglobin measurement (mass/volume) 13.7 g/dL 11.5-16.0 Blood hematocrit (volume fraction) 40 % 35-52 Automated erythrocyte mean corpuscular volume 88 [foz_us] 80-99 Automated erythrocyte mean corpuscular hemoglobin (mass per erythrocyte) 31 pg 25-34 Automated erythrocyte mean corpuscular hemoglobin concentration measurement ( mass/volume) 35 g/dL 32-36 Automated erythrocyte distribution width ratio 13.1 % 10.0-14.5 Automated blood platelet count (count/volume) 221 10*3/uL 130-400 Automated blood platelet mean volume measurement 9.9 [foz_us] 7.4-10.4 Automated blood neutrophils/100 leukocytes 55 % 42-75 Automated blood lymphocytes/100 leukocytes 31 % 12-44 Blood monocytes/100 leukocytes 11 % 0-12 Automated blood eosinophils/100 leukocytes 3 % 0-10 Automated blood basophils/100 leukocytes 0 % 0-10 Blood neutrophils automated count (number/volume) 4.2 10*3 1.8-7.8 Blood lymphocytes automated count (number/volume) 2.4 10*3 1.0-4.0 Blood monocytes automated count (number/volume) 0.8 10*3 0.0-1.0 Automated eosinophil count 0.2 10*3/uL 0.0-0.3 Automated blood basophil count (count/volume) 0.0 10*3/uL 0.0-0.1 Fibrin D-dimer FEU measurement in platelet poor plasma (mass/volume) - 10:55 Fibrin D-dimer FEU measurement in platelet poor plasma (mass/volume) 0.38 ug/mL 0.00-0.49 Whole blood basic metabolic panel - 11/22/17 10:55 Serum or plasma sodium measurement (moles/volume) 139 mmol/L 135-145 Serum or plasma potassium measurement (moles/volume) 3.5 mmol/L 3.6-5.0 Serum or plasma chloride measurement (moles/volume) 106 mmol/L 98-107 Carbon dioxide 27 mmol/L 21-32 Serum or plasma anion gap determination (moles/volume) 6 mmol/L 5-14 Serum or plasma urea nitrogen measurement (mass/volume) 17 mg/dL 7-18 Serum or plasma creatinine measurement (mass/volume) 0.77 mg/dL 0.60-1.30 Serum or plasma urea nitrogen/creatinine mass ratio 22 NRG Serum or plasma creatinine measurement with calculation of estimated glomerular filtration rate > NRG Serum or plasma glucose measurement (mass/volume) 174 mg/dL 70-105 Serum or plasma calcium measurement (mass/volume) 9.0 mg/dL 8.5-10.1 Encounters ACCT No. Visit Date/Time Discharge Status Pt. Type Provider Facility Loc./Unit Complaint [id number] 12/28/2014 14:01:00 12/28/2014 23:59:59 CLS Outpatient JONY GARCIA MD [id number] 11/05/2014 17:29:00 11/05/2014 23:59:59 CLS Outpatient EDIE HARKINS DO [id number] 10/03/2014 13:15:00 10/03/2014 23:59:59 CLS Outpatient JONY GARCIA MD [id number] 09/03/2014 16:00:00 09/03/2014 23:59:59 CLS Outpatient JONY GARCIA MD [id number] 06/14/2014 13:34:00 06/14/2014 23:59:59 CLS Outpatient JONY GARCIA MD [id number] 05/23/2014 08:33:00 05/23/2014 23:59:59 CLS Outpatient ALBERTO KOROMA APRN [id number] 03/12/2014 13:55:00 03/12/2014 23:59:59 CLS Outpatient JONY GARCIA MD [id number] 12/20/2013 08:28:00 12/20/2013 23:59:59 CLS Outpatient JONY GARCIA MD [id number] 12/07/2013 14:48:00 12/07/2013 23:59:59 CLS Outpatient JONY GARCIA MD [id number] 11/07/2013 08:57:00 11/07/2013 23:59:59 CLS Outpatient ANGELITO SORENSON MD [id number] 11/02/2013 14:48:00 11/02/2013 23:59:59 CLS Outpatient ALBERTO KOROMA APRN [id number] 09/27/2013 13:00:00 09/27/2013 23:59:59 CLS Outpatient EDIE HARKINS DO [id number] 09/27/2013 13:00:00 09/27/2013 23:59:59 CLS Outpatient ÁLVARO DAMON APRN [id number] 08/21/2013 15:18:00 08/21/2013 23:59:59 CLS Outpatient JONY GARCIA MD [id number] 08/11/2013 13:12:00 08/11/2013 23:59:59 CLS Outpatient HENRY HERNANBREANNA [id number] 05/27/2013 13:02:00 05/27/2013 23:59:59 CLS Outpatient JAYLEN HERNAN, CASSIE Ren [id number] 10/24/2012 08:18:00 10/24/2012 23:59:59 CLS Outpatient JONY GARCIA MD [id number] 10/13/2012 13:18:00 10/13/2012 23:59:59 CLS Outpatient [id number] 07/18/2012 16:29:00 07/18/2012 23:59:59 [place] [id number] 07/18/2012 16:29:00 07/18/2012 23:59:59 CLS Outpatient JONY GARCIA MD [id number] 05/02/2013 15:42:00 Document Registration [id number] 01/23/2013 15:58:00 Document Registration [id number] 06/29/2017 09:40:00 06/29/2017 23:59:59 CLS Outpatient JONY GARCIA MD [facility] [place] [id number] 12/20/2017 07:30:00 12/20/2017 23:59:59 CLS Preadmit DOUGIE WILKES MD [facility] SDC STEN[place]IS [id number] 11/26/2017 13:19:00 11/26/2017 23:59:59 CLS Outpatient CORTNEY HERNANDEZ MD [facility] RAD MASS R22.9 [id number] 11/22/2017 10:27:00 11/22/2017 13:26:00 DIS Emergency ROLANDO ATWOOD DOCTOR OF NAPRAPATHY [facility] ER LEFT LEG SWOLLEN [id number] 11/01/2017 08:38:00 11/01/2017 23:59:59 CLS Outpatient HANNAH STYLES DO S [facility] RAD M79.89,M79.605 [id number] 10/27/2017 16:01:00 10/27/2017 23:59:59 CLS Outpatient TIMO RHOADES DOCTOR OF NAPRAPATHY [facility] RAD SWELLIING AND PAIN [id number] 2017 10:13:00 2017 23:59:59 CLS Outpatient KATHE KOHLI JC Kelley [facility] RAD LOWER BACK PAIN [id number] 02/05/2017 13:49:00 02/05/2017 23:59:59 CLS Outpatient CHANTE MAHAJAN APRN [facility] RAD R FOOT PAIN [id number] 11/06/2016 13:27:00 11/06/2016 23:59:59 CLS Outpatient JANEE MAY MD [facility] RAD SCREENING [id number] 09/19/2015 09:31:00 09/19/2015 23:59:59 CLS Outpatient JANEE MAY MD [facility] RAD ROUTINE MAMMOGRAM SCREENING [id number] 09/16/2015 08:51:00 09/16/2015 23:59:59 CLS Outpatient JOE VASQUEZ LEAD PRODUCER [facility] RAD [id number] 09/16/2015 09:45:00 09/16/2015 19:11:00 DIS Outpatient EVELYN BORRERO MD [facility] VENTERAL HERNIA [id number] 09/06/2015 12:34:00 09/06/2015 23:59:59 CLS Outpatient EVELYN BORRERO MD [facility] PREOP [id number] 09/06/2015 12:29:00 09/06/2015 15:10:00 DIS Outpatient EVELYN BORRERO MD [facility] [id number] 09/05/2015 05:35:00 09/05/2015 23:59:59 CLS Outpatient EVELYN BORRERO MD [facility] PREOP SCREENING [id number] 09/03/2015 13:22:00 09/03/2015 23:59:59 CLS Outpatient EVELYN BORRERO MD [facility] PREOP SCREENING [id number] 07/16/2014 11:37:00 07/16/2014 23:59:59 CLS Outpatient JANEE MAY MD [facility] RAD SCREENING [id number] 08/11/2013 14:04:00 08/11/2013 23:59:59 CLS Outpatient BREANNA FIGUEROA [facility] RAD PAIN IN JOINT, INV LOWER LEG [id number] 03/09/2016 14:02:00 Document Registration [id number] 01/04/2013 11:42:00 Document Registration [id number] 07/16/2012 19:45:00 Document Registration [id number] 02/18/2011 13:35:00 Document Registration
[2018-03-06] MEDS ORDERED: cefTRIAXone INJECTION 1,000 MG in NS (IVPB) 50 ML IV ONE (22:45)
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
--- OUTSIDE RECORDS SUMMARY | 2018-03-06 23:09 | XMS REPORT | Encounter Summary ---
Author Author [facility] Organization [facility] Address Unknown Phone Unavailable Care Team Providers Care Enrolled Agent Name Role Phone Della Cuellar MD PCP Encounter Details Date Type Department Care Team Description 03/02/2018 Pharmacy Visit [facility] [address] [place] [address] Social History Tobacco Use Types Packs/Day Years [...]
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
--- OUTSIDE RECORDS SUMMARY | 2018-03-06 23:09 | XMS REPORT | Encounter Summary ---
Author Author [facility] Organization [facility] Address Unknown Phone Unavailable Care Team Providers Care Power Transformer Assembler Name Role Phone Della Cuellar MD PCP Encounter Details Date Type Department Care Team Description 03/04/2018 Outpt. [facility] Howard Encarnacion MD Antibiotic Physicians - Internal [address] [facility] Medicine [place] [address] [place] [address] [address] [facility] MED [phone] [place] [address] Social History Tobacco Use Types [...]
--- OUTSIDE RECORDS SUMMARY | 2018-03-06 23:09 | XMS REPORT | Encounter Summary ---
Author Author [facility] Organization [facility] Address Unknown Phone Unavailable Care Team Providers Care Core Composer Machine Tender Name Role Phone Della Cuellar MD PCP Encounter Details Date Type Department Care Team Description 03/02/2018 Pharmacy Visit [facility] [id number] [place] [id number] Social History Tobacco Use Types Packs/Day Years [...]
--- OUTSIDE RECORDS SUMMARY | 2018-03-06 23:09 | XMS REPORT | Encounter Summary ---
Author Author [facility] Organization [facility] Address Unknown Phone Unavailable Care Team Providers Care Bricklayer Name Role Phone Della Cuellar MD PCP Encounter Details Date Type Department Care Team Description 03/01/2018 Procedure Pass [facility] [address] [place] [address] Social History Tobacco Use Types Packs/Day Years [...]
--- OUTSIDE RECORDS SUMMARY | 2018-03-06 23:09 | XMS REPORT | Encounter Summary ---
Author Author [facility] Organization [facility] Address Unknown Phone Unavailable Care Team Providers Care Recenterer Name Role Phone Della Cuellar MD PCP Encounter Details Date Type Department Care Team Description 03/03/[address] [facility] [address] [place] [address] Social History Tobacco Use Types Packs/Day Years [...]
--- OUTSIDE RECORDS SUMMARY | 2018-03-06 23:09 | XMS REPORT | Encounter Summary ---
Author Author [facility] Organization [facility] Address Unknown Phone Unavailable Care Team Providers Care Ice Cream Dipper Name Role Phone Della Cuellar MD PCP Encounter Details Date Type Department Care Team Description 03/02/2018 Documentation [facility] Hugh Rivera, RN [address] [place] [id number] [place] [address] Social History Tobacco Use Types Packs/Day Years [...]
--- OUTSIDE RECORDS SUMMARY | 2018-03-06 23:25 | XMS REPORT | Encounter Summary ---
Author Author [facility] Organization [facility] Address Unknown Phone Unavailable Care Team Providers Care Fine Wire Drawer Name Role Phone Della Cuellar MD PCP Reason for Visit * Auth/Cert Status Reason Specialty Diagnoses / Referred By Referred To Procedures Contact Contact Diagnoses Acquired absence of left hip joint Encounter Details Date Type Department Care Team Description 01/14/2018 Hospital R ACUTE REHAB UNIT Ruth Allen MD Left hip amputation - Encounter [address] F status 03/02/2018 [place] [address] Arnaldo hayes MD [phone] [place], [place] [id number] Social History Tobacco Use Types Packs/Day Years [...] a 52 yo F who presented to [facility] on 12/13/17 for scheduled left hemipelvectomy [...] or concerns regarding your hospital stay. Call [phone] Discharging attending physician: RUTH ALLEN [[id number]] Diabetic Diet You should eat between 1600 and 2000 calories per day. This is equal to 60g ( grams) of carbohydrates per meal, and 30g of carbohydrates for a bedtime snack. If you have questions about your diet after you go home, you can call a dietitian at [phone]. Current Discharge Medication List START taking these [...] prescription was faxed to the pharmacy Pharmacy: [facility] ([facility]) (Ph #: [phone] ) ondansetron (ZOFRAN) 4 mg tablet Take 1 tablet by mouth every 6 hours as needed. Qty: 30 tablet, Refills: 0 PRESCRIPTION TYPE: Normal This prescription was faxed to the pharmacy Pharmacy: [facility] ([facility]) (Ph #: [phone] ) sitaGLIPtin (JANUVIA) 100 mg tab tablet Take 1 tablet by mouth daily. Qty: 30 tablet, Refills: 1 PRESCRIPTION TYPE: Normal This prescription was faxed to the pharmacy Pharmacy: [facility] ([facility]) (Ph #: [phone] ) sodium hypochlorite (DAKIN'S 1/2 STRENGTH) 0.25 % topical solution Apply topically to affected area as needed. Qty: 946 mL, Refills: 0 PRESCRIPTION TYPE: Normal This prescription was faxed to the pharmacy Pharmacy: [facility] ([facility]) (Ph #: [phone] ) vancomycin (VANCOCIN) 1,500 mg in dextrose [...] prescription was faxed to the pharmacy Pharmacy: [facility] ([facility]) (Ph #: [phone] ) collagenase (SANTYL) 250 unit/g topical ointment Apply to left lower abdominal wound. Do not apply over incision. See wound care instructions Qty: 90 g, Refills: 1 PRESCRIPTION TYPE: Normal This prescription was faxed to the pharmacy Pharmacy: [facility] ([facility]) (Ph #: [phone] ) ertapenem (INVANZ) 1 g/10 mL IVP Administer 10 mL through vein every 24 hours. Continue daily until surgery Qty: 1 each PRESCRIPTION TYPE: No Print gabapentin (NEURONTIN) 300 mg capsule Take 2 capsules by mouth every 6 hours. Qty: 240 capsule, Refills: 1 PRESCRIPTION TYPE: Normal This prescription was faxed to the pharmacy Pharmacy: [facility] ([facility]) (Ph #: [phone] ) levothyroxine (SYNTHROID) 200 mcg tablet Take 1 tablet by mouth daily before breakfast. Qty: 30 tablet, Refills: 1 PRESCRIPTION TYPE: Normal This prescription was faxed to the pharmacy Pharmacy: [facility] ([facility]) (Ph #: [phone] ) nortriptyline (PAMELOR) 75 mg capsule Take 1 capsule by mouth at bedtime daily. Qty: 30 capsule, Refills: 1 PRESCRIPTION TYPE: Normal This prescription was faxed to the pharmacy Pharmacy: [facility] ([facility]) (Ph #: [phone] ) oxyCODONE (ROXICODONE, OXY-IR) 15 mg tablet [...] prescription was faxed to the pharmacy Pharmacy: [facility] ([facility]) (Ph #: [phone] ) CONTINUE these medications which have NOT [...] Outpatient [facility] (Burn/Wound) [address] [facility] Ground Floor [address] [facility] [address] Apr 14, 2018 9:50 AM CDT Post - Op with Tamiko Luther MD [facility] - [facility]oped[facility] ([facility]) 1st And 2nd Floor [address] [facility] Orthopedics [facility] [address] Apr 22, 2018 11:15 AM CDT Return Patient with Arnaldo Delacruz MD [facility] ([facility]) [address] [facility] [address] Jun 02, 2018 11:[address] CHEST W/CONTRAST with CT-[facility] ([facility]) [address] [facility] Med Office [facility] 2nd Floor [facility] [address] Jun 02, 2018 12:45 PM CDT Consult Patient with Christian Skinner MD [facility] [address] [place] [id number] Pending items needing follow up: Signed: Ravi Pride DO 03/03/2018 cc: Primary Care Physician: Della Cuellar Verified Referring physicians: No ref. provider found Additional provider(s): in this encounter Discharge Instructions * Discharge Instr - Case Management - Hakeem Escalona - 03/02/2018 2:20 PM CDT [facility] will be contacting you to schedule home health services. Please call them with questions or concerns at [phone]. * Rehab Team Physician - Ravi Pride DO - 01/18/2018 2:45 PM CDT Beata Kaiser is a 52 yo F who presented to [facility] on 12/13/17 for scheduled left hemipelvectomy [...] 02/18, working on continence * Rehab Team Meter Supervisor/Case Management Support/Ongoing Services/DME - MarloantioneHakeem darnell - [...] yo), and adult son Skyler. 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 Pt's [...] bed with air mattress, wheelchair/cushion ([facility] 03[facility]01 and will provide loaner chair), slideboard, [...] bed level to edge of bed with meter reader chief and standing to head well puller hips Upper body dressing from minimal assistance [...] PHARMD - 03/02/2018 4:55 PM CDT [facility] Home Infusion Note Medication Delivery Date/Time/Place: Medication & supplies delivered to pt room prior to dishcarge 03.02.18 Start of Care: Home doses of Vancomycin to begin 03.02.18; Invanz to begin 03.03.18 Teach: [facility] GRACE< Hugh conducted bedside teach with patient prior to discharge Drug: Invanz 1gm / Vancomycin 1.5 gm Frequency: Q 24 hours Adm Method: [place] / Elastomeric Adm Directions: Administer Invanz 1 [...] dose (03.05.18) Fax results to: Dr Encarnacion [phone] & EMORY [phone] HH: [facility] [phone] MD: Howard Encarnacion * Olena Carreon, RN - 03/02/2018 4:55 PM CDT Beata Kaiser discharged on 03/02/2018. . Discharge instructions reviewed with family. Valuables returned: Personal Items / Valuables: Eyeglasses/Contacts, Electronics, Clothing Electronic Devices: Cell Phone. Home medications: . Functional assessment at discharge complete: Yes . Pt assisted to 's rental car via slide board with PROGRAM ENGAGEMENT DIRECTOR Kady. * Adrienne Zarate MD - 03/02/2018 [...] evaluate as an outpatient Adrienne Zarate MD [id number] * Nneka Garsia RN - 03/02/2018 1:58 [...] assessed 03/02/2018 12:00 PM Surrounding Skin Assessment [place];Dry 03/01/2018 12:00 PM Wound Site Closure [place] 03/01/2018 12:00 PM Wound Drainage Amount Small [...] Yes 02/08/2018 12:00 AM Wound Base Assessment Moist;Slough;Yellow;[place] 03/02/2018 12:00 PM Surrounding Skin Assessment [place];Intact 03/02/2018 12:00 PM Wound Site Closure None [...] [place];Dry 03/02/2018 12:00 PM Surrounding Skin Assessment [place];Intact;Dry 03/02/2018 12:00 PM Wound Site Closure [place] 03/02/2018 12:00 PM Wound Drainage Amount Scant [...] Yes 02/15/2018 9:00 PM Wound Base Assessment [place];Moist;[place];Slough 03/02/2018 12:00 PM Surrounding Skin Assessment [place];Intact 03/02/2018 12:00 PM Wound Site Closure Ceci [...] Garsia RN, BSN Wound /Ostomy Team Pager [phone] After Hours Wound/Ostomy team pager [phone] * Ruth Allen MD - 03/02/2018 9:33 [...] Admission Date: 01/14/2018 LOS: 47 days Insurance: [facility] Principal Problem: Left hip amputation status Active Problems: Chondrosarcoma (HCC) Acute blood loss as cause of postoperative anemia Depression Anxiety DM (diabetes mellitus) (HCC) Hypothyroidism Chronic pain Post-op pain Bacteremia Amputated left leg (HCC) Candiduria Assessment/Plan: Beata Lema a 52 y.o.femalead[facility] on 01[facility]18with the following [...] labs T2DM - A1c 6.5%, controlled - 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 ENGINEER regimen: Metformin thousand milligrams twice a day, [id number] mg daily (resume at discharge) > Correction factor > Metformin 1000mg BID, Januvia 100mg daily 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 - TSH 2.1 this admission >levothyroxine increased 200 mcg on 01/26 >She will need repeat thyroid function tests in 6-8 weeks (~March 08) Major depressive disorder, recurrent, moderate CLAUDIA Adjustment disorder with mixed anxiety and depressed mood > continue 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 ENGINEER Wellbutrin and buspar, started on nortriptyline this admission Nutrition -Corpak d/c 02/02 > weekly prealbumin and albumin - remains low > D/c corpak 02/02 > Continue current diet with protein supplementation HLD: 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 Insomnia: nortriptyline 75mg qhs DVT Prophylaxis:Xarelto, [...] Stool Occurrence: 1 Oral Diet Order: Diabetic 4691-6230 Kcal/day (60 g Carb/meal, 30 g Carb/HS [...] 20,000 Units/ sodium bicarbonate 650 mg(#) PRN (Portable Track Line Marker from Rx), saliva, synthetic PRN , sodium [...] trough in 4 days and fax to [phone] will be happy to see patient when [...] months. She is currently in our rehab [place] undergoing hyperbaric oxygen therapy to promote wound [...] capsule 75 mg, 75 mg, Oral, QHS, Ruht Allen MD, 75 mg at 02/28/182138 ondansetron [...] 1 capsule, 1 capsule, Feeding Tube, PRN (Portable Track Line Marker from Rx), Krunal Peraza MD pantoprazole DR [...] mg, 100 mg, Oral, QDAY, Milly Clarke, CASING FLUSHER, 100 mg at 03/01/18 0917 sodium chloride [...] Kinney, PhD - 03/01/2018 9:12 AM CDT [id number] Pt was seen for follow-up with no [...] Ph.D. Neurorehabilitation Psychology Postdoctoral Fellow Pager #: [phone] ATTESTATION: I discussed this session and pt's care with the fellow and agree with her note above. We will continue to follow prn until [facility] IRF d/c. Warren Kinney, PhD, ABPP * [...] care, possibility of IV abx , ramp. [facility] coordinating equipment. Had wheelchair eval [...] Admission Date: 01/14/2018 LOS: 46 days Insurance: [facility] Principal Problem: Left hip amputation status Active Problems: Chondrosarcoma (HCC) Acute blood loss as cause of postoperative anemia Depression Anxiety DM (diabetes mellitus) (HCC) Hypothyroidism Chronic pain Post-op pain Bacteremia Amputated left leg (HCC) Candiduria Assessment/Plan: Beata Lema a 52 y.o.femaleadmitted to [facility] on 01/14[facility]18with the following [...] labs T2DM - A1c 6.5%, controlled - 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 ENGINEER regimen: Metformin thousand milligrams twice a day, [id number] mg daily (resume at discharge) > Correction factor > Metformin 1000mg BID, Januvia 100mg daily 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 - TSH 2.1 this admission >levothyroxine increased 200 mcg on 01/26 >She will need repeat thyroid function tests in 6-8 weeks (~March 08) Major depressive disorder, recurrent, moderate CLAUDIA Adjustment disorder with mixed anxiety and depressed mood > continue 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 ENG[employer]ER Wellbutrin and buspar, started on nortriptyline this admission Nutrition -Corpak d/c 02/02 > weekly prealbumin and albumin - remains low > D/c corpak 02/02 > Continue current diet with protein supplementation HLD: 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 Insomnia: nortriptyline 75mg qhs DVT Prophylaxis:Xarelto, [...] Stool Occurrence: 1 Oral Diet Order: Diabetic 4754-1188 Kcal/day (60 g Carb/meal, 30 g Carb/HS [...] 20,000 Units/ sodium bicarbonate 650 mg(#) PRN (Portable Track Line Marker from Rx), saliva, synthetic PRN, sodium hypochlorite [...] 20,000 Units/ sodium bicarbonate 650 mg(#) PRN (Portable Track Line Marker from Rx), saliva, synthetic PRN, sodium hypochlorite [...] at this time for Hyperbaric [place] via [facility]. * Ruth Allen MD - 02/28/2018 [...] Admission Date: 01/14/2018 LOS: 45 days Insurance: [facility] Principal Problem: Left hip amputation status Active Problems: Chondrosarcoma (HCC) Acute blood loss as cause of postoperative anemia Depression Anxiety DM (diabetes mellitus) (HCC) Hypothyroidism Chronic pain Post-op pain Bacteremia Amputated left leg (HCC) Candiduria Assessment/Plan: Beata Lema a 52 y.o.femaleadmitted to [facility] on 01/14/18with the following [...] labs T2DM - A1c 6.5%, controlled - 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 ENGINEER regimen: Metformin thousand milligrams twice a day, mg daily (resume at discharge) > Correction factor > Metformin 1000mg BID, Januvia 100mg daily 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 - TSH 2.1 this admission >levothyroxine increased 200 mcg on 01/26 >She will need repeat thyroid function tests in 6-8 weeks (~March 08) Major depressive disorder, recurrent, moderate CLAUDIA Adjustment disorder with mixed anxiety and depressed mood > continue 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 ENGINEER Wellbutrin and buspar, started on nortriptyline this admission Nutrition -Corpak d/c 02/02 > weekly prealbumin and albumin - remains low > D/c corpak 02/02 > Continue current diet with protein supplementation HLD: 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 Insomnia: nortriptyline 75mg qhs DVT Prophylaxis:Xarelto, [...] Stool Occurrence: 1 Oral Diet Order: Diabetic 3039-6515 Kcal/day (60 g Carb/meal, 30 g Carb/HS [...] 20,000 Units/ sodium bicarbonate 650 mg(#) PRN (Portable Track Line Marker from Rx), saliva, synthetic PRN, sodium hypochlorite [...] Admission Date: 01/14/2018 LOS: 44 days Insurance: [facility] Principal Problem: Left hip amputation status Active Problems: Chondrosarcoma (HCC) Acute blood loss as cause of postoperative anemia Depression Anxiety DM (diabetes mellitus) (HCC) Hypothyroidism Chronic pain Post-op pain Bacteremia Amputated left leg (HCC) Candiduria Assessment/Plan: Beata Lema a 52 y.o.femaleadmitted to [facility] on 01/14/18with the following [...] labs T2DM - A1c 6.5%, controlled - 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 ENGINEER regimen: Metformin thousand milligrams twice a day, [id number] mg daily (resume at discharge) > Correction factor > Metformin 1000mg BID, Januvia 100mg daily 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 - TSH 2.1 this admission >levothyroxine increased 200 mcg on 01/26 >She will need repeat thyroid function tests in 6-8 weeks (~March 08) Major depressive disorder, recurrent, moderate CLAUDIA Adjustment disorder with mixed anxiety and depressed mood > continue 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 ENGINEER Wellbutrin and buspar, started on nortriptyline this admission Nutrition -Corpak d/c 02/02 > weekly prealbumin and albumin - remains low > D/c corpak 02/02 > Continue current diet with protein supplementation HLD: 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 Insomnia: nortriptyline 75mg qhs DVT Prophylaxis:Xarelto, [...] Stool Occurrence: 1 Oral Diet Order: Diabetic 4680-5925 Kcal/day (60 g Carb/meal, 30 g Carb/HS [...] Low-High Color,UA YELLOW Turbidity,UA CLEAR CLEAR-CLEAR Specific [place]-Urine 1.018 1.003 - 1.035 pH,UA 5.0 5.0 [...] and Respiratory Meds:acetaminophen Q6H PRN, alteplase PRN (Portable Track Line Marker from Rx) , aluminum/magnesium hydroxide Q6H PRN, calcium carbonate Q4H PRN, milk of magnesia (CONC) Q4H PRN, ondansetron Q6H PRN, oxyCODONE Q4H PRN, pancrelipase 20 ,000 Units/ sodium bicarbonate 650 mg(#) PRN (Portable Track Line Marker from Rx), saliva, synthetic PRN, sodium hypochlorite [...] face with patient to examine her and caddo her about the causes of fever and [...] and Respiratory Meds:acetaminophen Q6H PRN, alteplase PRN (Portable Track Line Marker from Rx) , aluminum/magnesium hydroxide Q6H PRN, calcium carbonate Q4H PRN, milk of magnesia (CONC) Q4H PRN, ondansetron Q6H PRN, oxyCODONE Q4H PRN, pancrelipase 20 ,000 Units/ sodium bicarbonate 650 mg(#) PRN (Portable Track Line Marker from Rx), saliva, synthetic PRN, sodium hypochlorite [...] Admission Date: 01/14/2018 LOS: 43 days Insurance: [facility] Principal Problem: Left hip amputation status Active Problems: Chondrosarcoma (HCC) Acute blood loss as cause of postoperative anemia Depression Anxiety DM (diabetes mellitus) (HCC) Hypothyroidism Chronic pain Post-op pain Bacteremia Amputated left leg (HCC) Candiduria Assessment/Plan: Beata Lema a 52 y.o.femaleadmitted to [facility] on 01/14/18with the following [...] labs T2DM - A1c 6.5%, controlled - 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 ENG[employer]ER regimen: Metformin thousand milligrams twice a day, [id number] mg daily (resume at discharge) > Correction factor > Metformin 1000mg BID, Januvia 100mg daily 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 - TSH 2.1 this admission >levothyroxine increased 200 mcg on 01/26 >She will need repeat thyroid function tests in 6-8 weeks (~March 08) Major depressive disorder, recurrent, moderate CLAUDIA Adjustment disorder with mixed anxiety and depressed mood > continue 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 ENGINEER Wellbutrin and buspar, started on nortriptyline this admission Nutrition -Corpak d/c 02/02 > weekly prealbumin and albumin - remains low > D/c corpak 02/02 > Continue current diet with protein supplementation HLD: 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 Insomnia: nortriptyline 75mg qhs DVT Prophylaxis:Xarelto, [...] Stool Occurrence: 1 Oral Diet Order: Diabetic 7077-3543 Kcal/day (60 g Carb/meal, 30 g Carb/HS [...] and Respiratory Meds:acetaminophen Q6H PRN, alteplase PRN (Portable Track Line Marker from Rx) , aluminum/magnesium hydroxide Q6H PRN, calcium carbonate Q4H PRN, milk of magnesia (CONC) Q4H PRN, ondansetron Q6H PRN, oxyCODONE Q4H PRN, pancrelipase 20 ,000 Units/ sodium bicarbonate 650 mg(#) PRN (Portable Track Line Marker from Rx), saliva, synthetic PRN, sodium hypochlorite [...] Intact 02/25/2018 12:30 PM Wound Site Closure [place] 02/25/2018 12:30 PM Wound Drainage Amount None [...] Intact 02/25/2018 12:30 PM Wound Site Closure [place] 02/25/2018 12:30 PM Wound Drainage Amount Large [...] Slough;Moist 02/25/2018 3:00 PM Surrounding Skin Assessment [place] 02/25/2018 3:00 PM Wound Site Closure [place] 02/25/2018 3:00 PM Wound Drainage Amount Small [...] Garsia RN, BSN Wound /Ostomy Team Pager [phone] After Hours Wound/Ostomy team pager [phone] * Hero Camarena - 02/25/2018 1:13 PM CDT 12:45 Attempted follow-up with pt to provide brief therapeutic support. However , pt couldn't be seen due to the presence of another service (likely completing wound care). Will attempt to follow-up with pt at a later time. Hero Camarena, Ph.D. Clinical Psychology Postdoctoral Fellow Pager: [phone] * Loreta Benitez, SANJAY - 02/25/2018 12:18 [...] home. She states her daughter is a NBA PLAYER and can help her change the brief [...] Admission Date: 01/14/2018 LOS: 42 days Insurance: [facility] Principal Problem: Left hip amputation status Active Problems: Chondrosarcoma (HCC) Acute blood loss as cause of postoperative anemia Depression Anxiety DM (diabetes mellitus) (HCC) Hypothyroidism Chronic pain Post-op pain Bacteremia Amputated left leg (HCC) Candiduria Assessment/Plan: Beata Lema a 52 y.o.femaleadmitted to [facility] on 01/14/18with the following [...] labs T2DM - A1c 6.5%, controlled - 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 ENGINEER regimen: Metformin thousand milligrams twice a day, [id number] mg daily (resume at discharge) > Correction factor > Metformin 1000mg BID, Januvia 100mg daily 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 - TSH 2.1 this admission >levothyroxine increased 200 mcg on 01/26 >She will need repeat thyroid function tests in 6-8 weeks (~March 08) Major depressive disorder, recurrent, moderate CLAUDIA Adjustment disorder with mixed anxiety and depressed mood > continue 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 ENGINEER Wellbutrin and buspar, started on nortriptyline this admission Nutrition -Corpak d/c 02/02 > weekly prealbumin and albumin - remains low > D/c corpak 02/02 > Continue current diet with protein supplementation HLD: 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 Insomnia: nortriptyline 75mg qhs DVT Prophylaxis:Xarelto, [...] Stool Occurrence: 1 Oral Diet Order: Diabetic 9772-8197 Kcal/day (60 g Carb/meal, 30 g Carb/HS [...] and Respiratory Meds:acetaminophen Q6H PRN, alteplase PRN (Portable Track Line Marker from Rx) , aluminum/magnesium hydroxide Q6H PRN, calcium carbonate Q4H PRN, milk of magnesia (CONC) Q4H PRN, ondansetron Q6H PRN, oxyCODONE Q4H PRN, pancrelipase 20 ,000 Units/ sodium bicarbonate 650 mg(#) PRN (Portable Track Line Marker from Rx), saliva, synthetic PRN, sodium hypochlorite [...] the unit at this time via [facility] kike chen. * LeeOlena batres [...] Admission Date: 01/14/2018 LOS: 41 days Insurance: [facility] Principal Problem: Left hip amputation status Active Problems: Chondrosarcoma (HCC) Acute blood loss as cause of postoperative anemia Depression Anxiety DM (diabetes mellitus) (HCC) Hypothyroidism Chronic pain Post-op pain Bacteremia Amputated left leg (HCC) Candiduria Assessment/Plan: Beata Lema a 52 y.o.femaleadmitted to [facility] on 01/14/18with the following [...] labs T2DM - A1c 6.5%, controlled - 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 ENGINEER regimen: Metformin thousand milligrams twice a day, [id number] mg daily (resume at discharge) > Correction factor > Metformin 1000mg BID, Januvia 100mg daily 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 - TSH 2.1 this admission >levothyroxine increased 200 mcg on 01/26 >She will need repeat thyroid function tests in 6-8 weeks (~March 08) Major depressive disorder, recurrent, moderate CLAUDIA Adjustment disorder with mixed anxiety and depressed mood > continue 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 ENGINEER Wellbutrin and buspar, started on nortriptyline this admission Nutrition -Corpak d/c 02/02 > weekly prealbumin and albumin - remains low > D/c corpak 02/02 > Continue current diet with protein supplementation HLD: 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 Insomnia: nortriptyline 75mg qhs DVT Prophylaxis:Xarelto, [...] Stool Occurrence: 1 Oral Diet Order: Diabetic 2753-7355 Kcal/day (60 g Carb/meal, 30 g Carb/HS [...] and Respiratory Meds:acetaminophen Q6H PRN, alteplase PRN (Portable Track Line Marker from Rx) , aluminum/magnesium hydroxide Q6H PRN, calcium carbonate Q4H PRN, milk of magnesia (CONC) Q4H PRN, ondansetron Q6H PRN, oxyCODONE Q4H PRN, pancrelipase 20 ,000 Units/ sodium bicarbonate 650 mg(#) PRN (Portable Track Line Marker from Rx), saliva, synthetic PRN, sodium hypochlorite [...] Intact 02/23/2018 3:00 PM Wound Site Closure [place] 02/23/2018 3:00 PM Wound Drainage Amount Small [...] Yes 02/08/2018 12:00 AM Wound Base Assessment Moist;[place];Slough 02/23/2018 3:00 PM Surrounding Skin Assessment [place] 02/23/2018 3:00 PM Wound Site Closure None [...] Intact 02/23/2018 3:00 PM Wound Site Closure [place] 02/23/2018 3:00 PM Wound Drainage Amount Scant [...] Yes 02/08/2018 12:00 AM Wound Base Assessment Pale;[place] 02/23/2018 3:00 PM Surrounding Skin Assessment Intact [...] Intact 02/23/2018 3:00 PM Wound Site Closure [place] 02/23/2018 3:00 PM Wound Drainage Amount Scant [...] Garsia RN, BSN Wound /Ostomy Team Pager [phone] After Hours Wound/Ostomy team pager [phone] * Leia Zimmerman - 02/23/2018 2:33 PM CDT CLINICAL NUTRITION Clinical Nutrition Follow-Up Summary Nutrition Assessment of Patient: Malnutrition Assessment: Adequately nourished prior to admission Current Oral Intake: Adequate Estimated Calorie Needs: 1620 (30kcal/kg of dw 54kg) Estimated Protein Needs: 81-92 (1.5-1.7g/kg of dw 54kg) Oral Diet Order: Diabetic 2824-3355 Kcal/day (60 g Carb/meal, 30 g Carb/HS snack ) Oral Supplement: Boost Glucose Control, BID, Prosource 52 yof admitted to [facility] 01/14/18 s/p L hemipelvectomy 12/14 [...] Currently not receiving insulin. On oral meds 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 with good control. Metformin and Jan[facility]ia [facility] No bowel complaints (+FCD 02/23). Culturelle continues. [...] Admission Date: 01/14/2018 LOS: 40 days Insurance: [facility] Principal Problem: Left hip amputation status Active Problems: Chondrosarcoma (HCC) Acute blood loss as cause of postoperative anemia Depression Anxiety DM (diabetes mellitus) (HCC) Hypothyroidism Chronic pain Post-op pain Bacteremia Amputated left leg (HCC) Candiduria Assessment/Plan: Beata Lema a 52 y.o.femalead[facility] on [facility]18with the following [...] labs T2DM - A1c 6.5%, controlled - 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 regimen: Metformin thousand milligrams twice a day, [id number] mg daily (resume at discharge) > Correction factor > Metformin 1000mg BID, Januvia 100mg daily 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 - TSH 2.1 this admission >levothyroxine increased 200 mcg on 01/26 >She will need repeat thyroid function tests in 6-8 weeks (~March 08) Major depressive disorder, recurrent, moderate CLAUDIA Adjustment disorder with mixed anxiety and depressed mood > continue 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 Wellbutrin and buspar, started on nortriptyline this admission Nutrition -Corpak d/c 02/02 > weekly prealbumin and albumin - remains low > D/c corpak 02/02 > Continue current diet with protein supplementation HLD: 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 Insomnia: nortriptyline 75mg qhs DVT Prophylaxis:Xarelto, [...] Stool Occurrence: 1 Oral Diet Order: Diabetic 0374-9709 Kcal/day (60 g Carb/meal, 30 g Carb/HS [...] and Respiratory Meds:acetaminophen Q6H PRN, alteplase PRN (Portable Track Line Marker from Rx) , aluminum/magnesium hydroxide Q6H PRN, calcium carbonate Q4H PRN, milk of magnesia (CONC) Q4H PRN, ondansetron (ZOFRAN) IV Q6H PRN, oxyCODONE Q4H PRN, pancrelipase 20,000 Units/ sodium bicarbonate 650 mg(#) PRN (Portable Track Line Marker from Rx), sodium hypochlorite PRN Physical Exam [...] Admission Date: 01/14/2018 LOS: 39 days Insurance: [facility] Principal Problem: Left hip amputation status Active Problems: Chondrosarcoma (HCC) Acute blood loss as cause of postoperative anemia Depression Anxiety DM (diabetes mellitus) (HCC) Hypothyroidism Chronic pain Post-op pain Bacteremia Amputated left leg (HCC) Candiduria Assessment/Plan: Beata Lema a 52 y.o.femaleadmitted to [facility] on 01/14/18with the following [...] labs T2DM - A1c 6.5%, controlled - 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 regimen: Metformin thousand milligrams twice a day, [id number] mg daily (resume at discharge) > Correction factor > Metformin 1000mg BID, Januvia 100mg daily 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 - TSH 2.1 this admission >levothyroxine increased 200 mcg on 01/26 >She will need repeat thyroid function tests in 6-8 weeks (~March 08) Major depressive disorder, recurrent, moderate CLAUDIA Adjustment disorder with mixed anxiety and depressed mood > continue 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 Wellbutrin and buspar, started on nortriptyline this admission Nutrition -Pt is currently meeting caloric and protein needs -Corpak d/c 02/02 > weekly prealbumin and albumin - remains low > D/c corpak 02/02 > Continue current diet with protein supplementation HLD: 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 Insomnia: nortriptyline 75mg qhs DVT Prophylaxis:Xarelto, [...] Stool Occurrence: 0 Oral Diet Order: Diabetic 0068-1145 Kcal/day (60 g Carb/meal, 30 g Carb/HS [...] and Respiratory Meds:acetaminophen Q6H PRN, alteplase PRN (Portable Track Line Marker from Rx) , aluminum/magnesium hydroxide Q6H PRN, calcium carbonate Q4H PRN, milk of magnesia (CONC) Q4H PRN, ondansetron (ZOFRAN) IV Q6H PRN, oxyCODONE Q4H PRN, pancrelipase 20,000 Units/ sodium bicarbonate 650 mg(#) PRN (Portable Track Line Marker from Rx), sodium hypochlorite PRN Physical Exam [...] at this time for hyperbaric tx via [facility] van. * Jennifer Diaz RN - [...] Dry;Intact 02/21/2018 11:40 AM Wound Site Closure [place] 02/21/2018 11:40 AM Wound Drainage Amount Small [...] Moist;Red;[place] 02/21/2018 11:40 AM Surrounding Skin Assessment Intact;[place] 02/21/2018 11:40 AM Wound Site Closure Wound [...] Moist;[place] 02/21/2018 11:40 AM Surrounding Skin Assessment Intact;[place] 02/21/2018 11:40 AM Wound Site Closure None [...] BSN, CWON Wound/Ostomy Nursing Consult Service Office: [phone] Pager: [phone] Wound/Ostomy Team Pager (After Hours/Weekends): [phone] * Ruth Allen MD - 02/21/2018 11:15 [...] Admission Date: 01/14/2018 LOS: 38 days Insurance: [facility] Principal Problem: Left hip amputation status Active Problems: Chondrosarcoma (HCC) Acute blood loss as cause of postoperative anemia Depression Anxiety DM (diabetes mellitus) (HCC) Hypothyroidism Chronic pain Post-op pain Bacteremia Amputated left leg (HCC) Candiduria Assessment/Plan: Beata Lema a 52 y.o.femaleadmitted to [facility] on 01/14/18with the following [...] labs T2DM - A1c 6.5%, controlled - 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 regimen: Metformin thousand milligrams twice a day, [id number] mg daily (resume at discharge) > Correction factor > Metformin 1000mg BID, Januvia 100mg daily 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 - TSH 2.1 this admission >levothyroxine increased 200 mcg on 01/26 >She will need repeat thyroid function tests in 6-8 weeks (~March 08) Major depressive disorder, recurrent, moderate CLAUDIA Adjustment disorder with mixed anxiety and depressed mood > continue 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 Wellbutrin and buspar, started on nortriptyline this admission Nutrition -Pt is currently meeting caloric and protein needs > weekly prealbumin and albumin - remains low > D/c corpak 02/02 > Continue current diet with protein supplementation HLD: 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 Insomnia: nortriptyline 75mg qhs DVT Prophylaxis:Xarelto, [...] Stool Occurrence: 0 Oral Diet Order: Diabetic 7406-0047 Kcal/day (60 g Carb/meal, 30 g Carb/HS [...] and Respiratory Meds:acetaminophen Q6H PRN, alteplase PRN (Portable Track Line Marker from Rx) , aluminum/magnesium hydroxide Q6H PRN, calcium carbonate Q4H PRN, milk of magnesia (CONC) Q4H PRN, ondansetron (ZOFRAN) IV Q6H PRN, oxyCODONE Q4H PRN, pancrelipase 20,000 Units/ sodium bicarbonate 650 mg(#) PRN (Portable Track Line Marker from Rx), sodium hypochlorite PRN Physical Exam [...] Admission Date: 01/14/2018 LOS: 37 days Insurance: [facility] Principal Problem: Left hip amputation status Active Problems: Chondrosarcoma (HCC) Acute blood loss as cause of postoperative anemia Depression Anxiety DM (diabetes mellitus) (HCC) Hypothyroidism Chronic pain Post-op pain Bacteremia Amputated left leg (HCC) Candiduria Assessment/Plan: Beata Lema a 52 y.o.femaleadmitted to [facility] on 01/14/18with the following [...] labs T2DM - A1c 6.5%, controlled - 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 regimen: Metformin thousand milligrams twice a day, [id number] mg daily (resume at discharge) > Correction factor > Metformin 1000mg BID, Januvia 100mg daily 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 - TSH 2.1 this admission >levothyroxine increased 200 mcg on 01/26 >She will need repeat thyroid function tests in 6-8 weeks (~March 08) Major depressive disorder, recurrent, moderate CLAUDIA Adjustment disorder with mixed anxiety and depressed mood > continue 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 Wellbutrin and buspar, started on nortriptyline this admission Nutrition -Pt is currently meeting caloric and protein needs > weekly prealbumin and albumin - remains low > D/c corpak 02/02 > Continue current diet with protein supplementation HLD: 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 Insomnia: nortriptyline 75mg qhs DVT Prophylaxis:Xarelto, will discharge on it Sofía Betancuort MD Subjective No issues/events overnight. Pt seen [...] Stool Occurrence: 0 Oral Diet Order: Diabetic 1590-7686 Kcal/day (60 g Carb/meal, 30 g Carb/HS [...] and Respiratory Meds:acetaminophen Q6H PRN, alteplase PRN (Portable Track Line Marker from Rx) , aluminum/magnesium hydroxide Q6H PRN, calcium carbonate Q4H PRN, milk of magnesia (CONC) Q4H PRN, ondansetron (ZOFRAN) IV Q6H PRN, oxyCODONE Q4H PRN, pancrelipase 20,000 Units/ sodium bicarbonate 650 mg(#) PRN (Portable Track Line Marker from Rx), sodium hypochlorite PRN Physical Exam [...] Admission Date: 01/14/2018 LOS: 36 days Insurance: [facility] Principal Problem: Left hip amputation status Active Problems: Chondrosarcoma (HCC) Acute blood loss as cause of postoperative anemia Depression Anxiety DM (diabetes mellitus) (HCC) Hypothyroidism Chronic pain Post-op pain Bacteremia Amputated left leg (HCC) Candiduria Assessment/Plan: Beata Lema a 52 y.o.femaleadmitted to [facility] on 01/14/18with the following [...] labs T2DM - A1c 6.5%, controlled - 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 regimen: Metformin thousand milligrams twice a day, [id number] mg daily (resume at discharge) > Correction factor > Metformin 1000mg BID, Januvia 100mg daily 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 - TSH 2.1 this admission >levothyroxine increased 200 mcg on 01/26 >She will need repeat thyroid function tests in 6-8 weeks (~March 08) Major depressive disorder, recurrent, moderate CLAUDIA Adjustment disorder with mixed anxiety and depressed mood > continue 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 Wellbutrin and buspar, started on nortriptyline this admission Nutrition -Pt is currently meeting caloric and protein needs > weekly prealbumin and albumin - remains low > D/c corpak 02/02 > Continue current diet with protein supplementation HLD: 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 Insomnia: nortriptyline 75mg qhs DVT Prophylaxis:Xarelto, [...] Stool Occurrence: 0 Oral Diet Order: Diabetic 4926-6674 Kcal/day (60 g Carb/meal, 30 g Carb/HS [...] and Respiratory Meds:acetaminophen Q6H PRN, alteplase PRN (Portable Track Line Marker from Rx) , aluminum/magnesium hydroxide Q6H PRN, calcium carbonate Q4H PRN, milk of magnesia (CONC) Q4H PRN, ondansetron (ZOFRAN) IV Q6H PRN, oxyCODONE Q4H PRN, pancrelipase 20,000 Units/ sodium bicarbonate 650 mg(#) PRN (Portable Track Line Marker from Rx), sodium hypochlorite PRN Physical Exam [...] Moist;[place];Black 02/18/2018 11:40 AM Surrounding Skin Assessment Intact;[place] 02/18/2018 11:40 AM Wound Site Closure Ceci [...] Moist;Yellow;[place] 02/18/2018 11:40 AM Surrounding Skin Assessment [place];Purple 02/18/2018 11:40 AM Wound Site Closure Wound [...] Moist;[place];Black 02/18/2018 11:40 AM Surrounding Skin Assessment Intact;[place] 02/18/2018 11:40 AM Wound Site Closure Wound [...] BSN, CWON Wound/Ostomy Nursing Consult Service Office: [phone] Pager: [phone] Wound/Ostomy Team Pager (After Hours/Weekends): [phone] * Ruth Allen MD - 02/18/2018 11:06 [...] Admission Date: 01/14/2018 LOS: 35 days Insurance: [facility] Principal Problem: Left hip amputation status Active Problems: Chondrosarcoma (HCC) Acute blood loss as cause of postoperative anemia Depression Anxiety DM (diabetes mellitus) (HCC) Hypothyroidism Chronic pain Post-op pain Bacteremia Amputated left leg (HCC) Candiduria Assessment/Plan: Beata Lema a 52 y.o.femaleadmitted to [facility] on 01/14/18with the following [...] labs T2DM - A1c 6.5%, controlled - 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 regimen: Metformin thousand milligrams twice a day, [id number] mg daily (resume at discharge) > Correction factor > Metformin 1000mg BID, Januvia 100mg daily 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 - TSH 2.1 this admission >levothyroxine increased 200 mcg on 01/26 >She will need repeat thyroid function tests in 6-8 weeks (~March 08) Major depressive disorder, recurrent, moderate CLAUDIA Adjustment disorder with mixed anxiety and depressed mood > continue 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 Wellbutrin and buspar, started on nortriptyline this admission Nutrition -Pt is currently meeting caloric and protein needs > weekly prealbumin and albumin - remains low > D/c corpak 02/02 > Continue current diet with protein supplementation HLD: 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 Insomnia: nortriptyline 75mg qhs DVT Prophylaxis:Xarelto, [...] Stool Occurrence: 0 Oral Diet Order: Diabetic 8181-9830 Kcal/day (60 g Carb/meal, 30 g Carb/HS [...] and Respiratory Meds:acetaminophen Q6H PRN, alteplase PRN (Portable Track Line Marker from Rx) , alum/mag hydroxide/simeth Q6H PRN, calcium carbonate Q4H PRN, milk of magnesia (CONC) Q4H PRN, ondansetron (ZOFRAN) IV Q6H PRN, oxyCODONE Q4H PRN, pancrelipase 20,000 Units/ sodium bicarbonate 650 mg(#) PRN (Portable Track Line Marker from Rx), sodium hypochlorite PRN Physical Exam [...] Ph.D. Advanced ClinicalPsychology Postdoctoral Fellow Pager #: [phone] ATTESTATION: I discussed this session and pt's care with the fellow and agree with his note above. We will continue to follow prn until [facility] IRF d/c. Warren Kinney, PhD, ABPP * [...] to the unit at this time via [employer] van. * Tamara Reilly - 02/17/2018 12:48 PM CDT Patients has left the unit for hyperbarics tx at this time via [employer]. * Arnaldo Delacruz MD - 02/17/2018 9:28 AM CDT Formatting of this note may be different from the original. Physical Medicine & Rehabilitation Progress Note Today's Date: 02/17/2018 Admission Date: 01/14/2018 LOS: 34 days Insurance: [facility] Principal Problem: Left hip amputation status Active Problems: Chondrosarcoma (HCC) Acute blood loss as cause of postoperative anemia Depression Anxiety DM (diabetes mellitus) (HCC) Hypothyroidism Chronic pain Post-op pain Bacteremia Amputated left leg (HCC) Candiduria Assessment/Plan: Beata Lema a 52 y.o.femaleadmitted to [facility] on 01/14/18with the following [...] labs T2DM - A1c 6.5%, controlled - 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 regimen: Metformin thousand milligrams twice a day, mg daily (resume at discharge) > Correction factor > Metformin 1000mg BID, Januvia 100mg daily 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 - TSH 2.1 this admission >levothyroxine increased 200 mcg on 01/26 >She will need repeat thyroid function tests in 6-8 weeks (~March 08) Major depressive disorder, recurrent, moderate CLAUDIA Adjustment disorder with mixed anxiety and depressed mood > continue 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 Wellbutrin and buspar, started on nortriptyline this admission Nutrition -Pt is currently meeting caloric and protein needs > weekly prealbumin and albumin - remains low > D/c corpak 02/02 > Continue current diet with protein supplementation HLD: 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 Insomnia: nortriptyline 75mg qhs DVT Prophylaxis:Xarelto, [...] Stool Occurrence: 0 Oral Diet Order: Diabetic 5999-4656 Kcal/day (60 g Carb/meal, 30 g Carb/HS [...] and Respiratory Meds:acetaminophen Q6H PRN, alteplase PRN (Portable Track Line Marker from Rx) , alum/mag hydroxide/simeth Q6H PRN, calcium carbonate Q4H PRN, milk of magnesia (CONC) Q4H PRN, ondansetron (ZOFRAN) IV Q6H PRN, oxyCODONE Q4H PRN, pancrelipase 20,000 Units/ sodium bicarbonate 650 mg(#) PRN (Portable Track Line Marker from Rx), sodium hypochlorite PRN Physical Exam [...] and Respiratory Meds:acetaminophen Q6H PRN, alteplase PRN (Portable Track Line Marker from Rx) , alum/mag hydroxide/simeth Q6H PRN, calcium carbonate Q4H PRN, milk of magnesia (CONC) Q4H PRN, ondansetron (ZOFRAN) IV Q6H PRN, oxyCODONE Q4H PRN, pancrelipase 20,000 Units/ sodium bicarbonate 650 mg(#) PRN (Portable Track Line Marker from Rx), sodium hypochlorite PRN Physical Examination [...] the unit at this time via [facility] kike chen. * Nneka Garsia [...] assessed 02/16/2018 11:00 AM Surrounding Skin Assessment Intact;[place];Purple 02/16/2018 11:00 AM Wound Site Closure None [...] Yes 02/08/2018 12:00 AM Wound Base Assessment Clean;[place] 02/16/2018 11:00 AM Surrounding Skin Assessment Intact;Edema [...] assessed 02/16/2018 11:00 AM Surrounding Skin Assessment Intact;[place] 02/16/2018 11:00 AM Wound Site Closure [place] 02/16/2018 11:00 AM Wound Drainage Amount Scant [...] assessed 02/16/2018 11:00 AM Surrounding Skin Assessment Dry;Intact;[place] 02/16/2018 11:00 AM Wound Site Closure Wound [...] assessed 02/16/2018 11:00 AM Surrounding Skin Assessment Intact;[place] 02/16/2018 11:00 AM Wound Site Closure None [...] Garsia RN, BSN Wound /Ostomy Team Pager [phone] After Hours Wound/Ostomy team pager [phone] Type of sponge: Black foam Number of [...] CYSTOGRAM, MELCHOR CATHETER EXCHANGE performed by Tamiko Lutehr MD at Main OR/Periop SECTION HERNIA REPAIR [...] and Respiratory Meds:acetaminophen Q6H PRN, alteplase PRN (Portable Track Line Marker from Rx) , alum/mag hydroxide/simeth Q6H PRN, calcium carbonate Q4H PRN, milk of magnesia (CONC) Q4H PRN, ondansetron (ZOFRAN) IV Q6H PRN, oxyCODONE Q4H PRN, pancrelipase 20,000 Units/ sodium bicarbonate 650 mg(#) PRN (Portable Track Line Marker from Rx), sodium hypochlorite PRN Prescriptions Prior [...] Take 1 capsule via feeding tube PRN (Portable Track Line Marker from Rx) ( Occluded Feeding Tube). pantoprazole [...] radiology. 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 Surgical Debridement: No Wound Orders/Recommendations: Weight Bearing [...] assessed 02/16/2018 11:00 AM Surrounding Skin Assessment Intact;[place];Pur[place] 02/16/2018 11:00 AM Wound Site Closure None [...] Yes 02/08/2018 12:00 AM Wound Base Assessment Clean;[place] 02/16/2018 11:00 AM Surrounding Skin Assessment Intact;Edema [...] assessed 02/16/2018 11:00 AM Surrounding Skin Assessment Intact;[place] 02/16/2018 11:00 AM Wound Site Closure [place] 02/16/2018 11:00 AM Wound Drainage Amount Scant [...] assessed 02/16/2018 11:00 AM Surrounding Skin Assessment Dry;Intact;[place] 02/16/2018 11:00 AM Wound Site Closure Wound [...] AM Wound Volume (cm^3) (Wound Team Only) 77343 cm^3 02/09/2018 11:40 AM Wound Healing % [...] assessed 02/16/2018 11:00 AM Surrounding Skin Assessment Intact;[place] 02/16/2018 11:00 AM Wound Site Closure None [...] None 01/23/2018 8:25 PM Wound Base Assessment [place] 01/23/2018 8:25 PM Surrounding Skin Assessment Dry;Intact [...] Admission Date: 01/14/2018 LOS: 33 days Insurance: [facility] Principal Problem: Left hip amputation status Active Problems: Chondrosarcoma (HCC) Acute blood loss as cause of postoperative anemia Depression Anxiety DM (diabetes mellitus) (HCC) Hypothyroidism Chronic pain Post-op pain Bacteremia Amputated left leg (HCC) Candiduria Assessment/Plan: Beata Lema a 52 y.o.femaleadmitted to [facility] on 01/14[facility]18with the following [...] labs T2DM - A1c 6.5%, controlled - 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 regimen: Metformin thousand milligrams twice a day, [id number] mg daily (resume at discharge) > Correction factor > Metformin 1000mg BID, Januvia 100mg daily 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 - TSH 2.1 this admission >levothyroxine increased 200 mcg on 01/26 >She will need repeat thyroid function tests in 6-8 weeks (~March 08) Major depressive disorder, recurrent, moderate CLAUDIA Adjustment disorder with mixed anxiety and depressed mood > continue 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 Wellbutrin and buspar, started on nortriptyline this admission Nutrition -Pt is currently meeting caloric and protein needs > weekly prealbumin and albumin - remains low > D/c corpak 02/02 > Continue current diet with protein supplementation HLD: 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 Insomnia: nortriptyline 75mg qhs DVT Prophylaxis:Xarelto, [...] Stool Occurrence: 0 Oral Diet Order: Diabetic 9074-6319 Kcal/day (60 g Carb/meal, 30 g Carb/HS [...] and Respiratory Meds:acetaminophen Q6H PRN, alteplase PRN (Portable Track Line Marker from Rx) , alum/mag hydroxide/simeth Q6H PRN, calcium carbonate Q4H PRN, milk of magnesia (CONC) Q4H PRN, ondansetron (ZOFRAN) IV Q6H PRN, oxyCODONE Q4H PRN, pancrelipase 20,000 Units/ sodium bicarbonate 650 mg(#) PRN (Portable Track Line Marker from Rx), sodium hypochlorite PRN Physical Exam [...] of dw 55kg) Oral Diet Order: Diabetic 2338-8371 Kcal/day (60 g Carb/meal, 30 g Carb/HS snack ) Oral Supplement: Boost Glucose Control, BID, Prosource 52 yof admitted to [facility] 01/14/18 s/p L hemipelvectomy 12/14 [...] Moist;Yellow;[place] 02/15/2018 12:00 PM Surrounding Skin Assessment Intact;[place];Purple 02/15/2018 12:00 PM Wound Site Closure None [...] Dry;Black;[place] 02/15/2018 12:00 PM Surrounding Skin Assessment Purple;Pale;[place] 02/15/2018 12:00 PM Wound Site Closure [place] 02/15/2018 12:00 PM Wound Drainage Amount Scant [...] Moist;Red;[place] 02/15/2018 12:00 PM Surrounding Skin Assessment Dry;Intact;[place] 02/15/2018 12:00 PM Wound Site Closure Wound [...] [place];Black;Moist 02/15/2018 12:00 PM Surrounding Skin Assessment Intact;[place] 02/15/2018 12:00 PM Wound Site Closure None [...] BSN, CWON Wound/Ostomy Nursing Consult Service Office: [phone] Pager: [phone] Wound/Ostomy Team Pager (After Hours/Weekends): [phone] * Linus Pisano MD - 02/15/2018 11:58 AM CDT Formatting of this note may be different from the original. Endocrinology Progress Note Beata Kaiser Date of Admission: 01/14/2018 Impression: 1. DM type 2 with stress hyperglycemia 2. Hypoglycemia A1c6.5, controlled 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 regimen: Metformin 1000mg BID, [id number] mg daily Hypoglycemic episodes on this regimen: None and not checking blood sugars at home Follows up with for diabetes management:Primary care physician at [facility]-complications assessment: Retinopathy: None Peripheral neuropathy: Yes on treatment Autonomic neuropathy:None Nephropathy: None Macrovascular complications:None Risk factor assessment: Last lipid profile - None on file On ACEi/ARB: Yes On Statin: yes 3. Hypothyroidism 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 TSH 2.1 [...] Januvia 100mg daily. Plan to resume Home 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 regimen at discharge : Metformin 1000mg BID, [id number] mg daily and discontinue Januvia at time [...] 05:46 AM No results found for: FREET3, M4FHGBSKS, THYBINDGLB Meds aspirin 81 mg Oral QDAY [...] IV MEDS Prnacetaminophen Q6H PRN, alteplase PRN (Portable Track Line Marker from Rx), alum/mag hydroxide/simeth Q6H PRN, calcium carbonate Q4H PRN, milk of magnesia (CONC) Q4H PRN, ondansetron (ZOFRAN) IV Q6H PRN, oxyCODONE Q4H PRN, pancrelipase 20, 000 Units/ sodium bicarbonate 650 mg(#) PRN (Portable Track Line Marker from Rx), sodium hypochlorite PRN Linus Pisano MD Pager # [phone] 02/15/2018 * Nani Lynch DO - 02/15/2018 9:48 AM CDT Discussed with Plastics team - feel tissue is still too edematous to work on for now. We will hold IV antibiotics and continue monitoring with wound care. Please call if patient has temps >38.3 and keep us updated on changes. Will cont to follow peripherally. Karin Lynch, ID, [id number] * Adrienne Zarate MD - 02/15/2018 9:22 [...] rehab, call with questions Adrienne Zarate MD [phone] * Murtaza Cline PA-C - 02/15/2018 8:14 [...] page please page plastic surgery "Gold" team [phone] (6AM-6PM M-F) On-call resident all other times or consult pager [phone] * Ruth Allen MD - 02/15/2018 7:42 [...] Endocrine will sign-off, stable glycemic control. 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 Patient remains medically stable to participate in IRF program. Staff name: Ruth Allen MD Date: 02/15/2018 Physical Medicine & Rehabilitation Progress Note Today's Date: 02/15/2018 Admission Date: 01/14/2018 LOS: 32 days Insurance: [facility] Principal Problem: Left hip amputation status Active Problems: Chondrosarcoma (HCC) Acute blood loss as cause of postoperative anemia Depression Anxiety DM (diabetes mellitus) (HCC) Hypothyroidism Chronic pain Post-op pain Bacteremia Amputated left leg (HCC) Candiduria Assessment/Plan: Beata Lema a 52 y.o.femalead[facility]18with the following [...] labs T2DM - A1c 6.5%, controlled - 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 ENG[employer] regimen: Metformin thousand milligrams twice a day, [id number] mg daily (resume at discharge) >Continue with Lantus 5 units QHS, novolog 4u postmeal , MDCF with meals > Metformin 1000mg BID, Januvia 100mg daily 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 - TSH 2.1 this admission >levothyroxine increased 200 mcg on 01/26 >She will need repeat thyroid function tests in 6-8 weeks (~March 08) Major depressive disorder, recurrent, moderate CLAUDIA Adjustment disorder with mixed anxiety and depressed mood > continue 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 Wellbutrin and buspar, started on nortriptyline this admission Nutrition -Pt is currently meeting caloric and protein needs > weekly prealbumin and albumin - remains low > D/c corpak 02/02 > Continue current diet with protein supplementation HLD: 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 Insomnia: nortriptyline 75mg qhs DVT Prophylaxis:Xarelto, [...] Stool Occurrence: 1 Oral Diet Order: Diabetic 4340-6626 Kcal/day (60 g Carb/meal, 30 g Carb/HS [...] and Respiratory Meds:acetaminophen Q6H PRN, alteplase PRN (Portable Track Line Marker from Rx) , alum/mag hydroxide/simeth Q6H PRN, calcium carbonate Q4H PRN, milk of magnesia (CONC) Q4H PRN, ondansetron (ZOFRAN) IV Q6H PRN, oxyCODONE Q4H PRN, pancrelipase 20,000 Units/ sodium bicarbonate 650 mg(#) PRN (Portable Track Line Marker from Rx), sodium hypochlorite PRN Physical Exam [...] Visit: Unit Rounds - Request for visit Shantell/Nondenominational: Roman Catholic - yet did not express any comments [...] as needed, 12/04, through the campus switchboard ([phone]). For immediate response, please page [phone]. For a response within 24 hours, please submit an order in O2 for a target worker consult or call the administrative voicemail at [phone]. Rev. Tita Montgomery, [facility] * Arnaldo Delacruz MD - 02/14/2018 10:05 AM CDT Formatting of this note may be different from the original. Physical Medicine & Rehabilitation Progress Note Today's Date: 02/14/2018 Admission Date: 01/14/2018 LOS: 31 days Insurance: [facility] Principal Problem: Left hip amputation status Active Problems: Chondrosarcoma (HCC) Acute blood loss as cause of postoperative anemia Depression Anxiety DM (diabetes mellitus) (HCC) Hypothyroidism Chronic pain Post-op pain Bacteremia Amputated left leg (HCC) Candiduria Assessment/Plan: Beata Lema a 52 y.o.femaleadmitted to [facility] on 01/14/18with the following [...] labs T2DM - A1c 6.5%, controlled - 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 regimen: Metformin thousand milligrams twice a day, mg daily >Continue with Lantus 5 units QHS, novolog 4u postmeal , MDCF with meals > Metformin 1000mg BID, Januvia 100mg daily 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 - TSH 2.1 this admission >levothyroxine increased 200 mcg on 01/26 >She will need repeat thyroid function tests in 6-8 weeks (~March 08) Major depressive disorder, recurrent, moderate CLAUDIA Adjustment disorder with mixed anxiety and depressed mood > continue 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ER Wellbutrin and buspar, started on nortriptyline this admission Nutrition - 01/31 albumin 2.4, Prealbumin 10.0, recheck 02/07 -Pt is currently meeting caloric and protein needs > weekly prealbumin and albumin - remains low > D/c corpak 02/02 > Continue current diet with protein supplementation HLD: 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 Insomnia: nortriptyline 100mg qhs DVT Prophylaxis:Xarelto, [...] Stool Occurrence: 1 Oral Diet Order: Diabetic 4883-0590 Kcal/day (60 g Carb/meal, 30 g Carb/HS [...] and Respiratory Meds:acetaminophen Q6H PRN, alteplase PRN (Portable Track Line Marker from Rx) , alum/mag hydroxide/simeth Q6H PRN, calcium carbonate Q4H PRN, milk of magnesia (CONC) Q4H PRN, ondansetron (ZOFRAN) IV Q6H PRN, oxyCODONE Q4H PRN, pancrelipase 20,000 Units/ sodium bicarbonate 650 mg(#) PRN (Portable Track Line Marker from Rx), sodium hypochlorite PRN Physical Exam [...] as needed. Jami Wetzel, PHARMD 02/14/2018 Pager [phone] * Maren Bryant RN - 02/14/2018 7:42 AM CDT Patient alert and oriented x4. Wound vac dressing removed. Wound packed Kerlix soaked in Denkins solution. Patient medicated prior to dressing change seasonal package handler notified about pain medication. Patient initially reported [...] Admission Date: 01/14/2018 LOS: 30 days Insurance: [facility] Principal Problem: Left hip amputation status Active Problems: Chondrosarcoma (HCC) Acute blood loss as cause of postoperative anemia Depression Anxiety DM (diabetes mellitus) (HCC) Hypothyroidism Chronic pain Post-op pain Bacteremia Amputated left leg (HCC) Candiduria Assessment/Plan: Beata Lema a 52 y.o.femaleadmitted to [facility] on 01/14/18with the following [...] labs T2DM - A1c 6.5%, controlled - 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 regimen: Metformin thousand milligrams twice a day, [id number] mg daily >Continue with Lantus 5 units QHS, novolog 4u postmeal , MDCF with meals > Metformin 1000mg BID, Januvia 100mg daily 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 - TSH 2.1 this admission >levothyroxine increased 200 mcg on 01/26 >She will need repeat thyroid function tests in 6-8 weeks (~March 08) Major depressive disorder, recurrent, moderate CLAUDIA Adjustment disorder with mixed anxiety and depressed mood > continue 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 Wellbutrin and buspar, started on nortriptyline this admission Nutrition - 01/31 albumin 2.4, Prealbumin 10.0, recheck 02/07 -Pt is currently meeting caloric and protein needs > weekly prealbumin and albumin - remains low > D/c corpak 02/02 > Continue current diet with protein supplementation HLD: 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 Insomnia: nortriptyline 100mg qhs DVT Prophylaxis:Xarelto, [...] Stool Occurrence: 1 Oral Diet Order: Diabetic 2137-5723 Kcal/day (60 g Carb/meal, 30 g Carb/HS [...] and Respiratory Meds:acetaminophen Q6H PRN, alteplase PRN (Portable Track Line Marker from Rx) , alum/mag hydroxide/simeth Q6H PRN, calcium carbonate Q4H PRN, milk of magnesia (CONC) Q4H PRN, ondansetron (ZOFRAN) IV Q6H PRN, oxyCODONE Q4H PRN, pancrelipase 20,000 Units/ sodium bicarbonate 650 mg(#) PRN (Portable Track Line Marker from Rx) Physical Exam VS: BP 109/56 [...] Admission Date: 01/14/2018 LOS: 29 days Insurance: [facility] Principal Problem: Left hip amputation status Active Problems: Chondrosarcoma (HCC) Acute blood loss as cause of postoperative anemia Depression Anxiety DM (diabetes mellitus) (HCC) Hypothyroidism Chronic pain Post-op pain Bacteremia Amputated left leg (HCC) Candiduria Assessment/Plan: Beata Lema a 52 y.o.femaleadmitted to [facility] on 01/14/18with the following [...] labs T2DM - A1c 6.5%, controlled - 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ER regimen: Metformin thousand milligrams twice a day, [id number] mg daily >Continue with Lantus 5 units QHS, novolog 4u postmeal , MDCF with meals > Metformin 1000mg BID, Januvia 100mg daily 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 - TSH 2.1 this admission >levothyroxine increased 200 mcg on 01/26 >She will need repeat thyroid function tests in 6-8 weeks (~March 08) Major depressive disorder, recurrent, moderate CLAUDIA Adjustment disorder with mixed anxiety and depressed mood > continue 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ER Wellbutrin and buspar, started on nortriptyline this admission Nutrition - 01/31 albumin 2.4, Prealbumin 10.0, recheck 02/07 -Pt is currently meeting caloric and protein needs > weekly prealbumin and albumin - remains low > D/c corpak 02/02 > Continue current diet with protein supplementation HLD: 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 Insomnia: nortriptyline 100mg qhs DVT Prophylaxis:Xarelto, [...] Stool Occurrence: 1 Oral Diet Order: Diabetic 4825-4054 Kcal/day (60 g Carb/meal, 30 g Carb/HS [...] and Respiratory Meds:acetaminophen Q6H PRN, alteplase PRN (Portable Track Line Marker from Rx) , alum/mag hydroxide/simeth Q6H PRN, calcium carbonate Q4H PRN, milk of magnesia (CONC) Q4H PRN, ondansetron (ZOFRAN) IV Q6H PRN, oxyCODONE Q4H PRN, pancrelipase 20,000 Units/ sodium bicarbonate 650 mg(#) PRN (Portable Track Line Marker from Rx) Physical Exam VS: BP 107/54 [...] feel free to call the ID fellow seasonal package handler at pager [phone] if there are any new issues or [...] 20,000 Units/ sodium bicarbonate 650 mg(#) PRN (Portable Track Line Marker from Rx) Physical Examination Vital Signs: Last [...] Moist;Yellow;[place] 02/11/2018 2:15 PM Surrounding Skin Assessment [place];Purple 02/11/2018 2:15 PM Wound Site Closure None [...] Black;[place] 02/11/2018 2:15 PM Surrounding Skin Assessment Purple;[place] 02/11/2018 2:15 PM Wound Site Closure [place] 02/11/2018 2:15 PM Wound Drainage Amount Small [...] Moist;Red;[place] 02/11/2018 2:15 PM Surrounding Skin Assessment Dry;Intact;[place] 02/11/2018 2:15 PM Wound Site Closure Wound [...] BSN, CWON Wound/Ostomy Nursing Consult Service Office: [phone] Pager: [phone] Wound/Ostomy Team Pager (After Hours/Weekends): [phone] * BiggRavi christian, - 02/11/2018 12:51 PM CDT Formatting of this note may be different from the original. Physical Medicine & Rehabilitation Progress Note Today's Date: 02/11/2018 Admission Date: 01/14/2018 LOS: 28 days Insurance: [facility] Principal Problem: Left hip amputation status Active Problems: Chondrosarcoma (HCC) Acute blood loss as cause of postoperative anemia Depression Anxiety DM (diabetes mellitus) (HCC) Hypothyroidism Chronic pain Post-op pain Bacteremia Amputated left leg (HCC) Candiduria Assessment/Plan: Beata Lema a 52 y.o.femaleadmitted to [facility] on 01/14/18with the following [...] labs T2DM - A1c 6.5%, controlled - 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 ENG[employer]ER regimen: Metformin thousand milligrams twice a day, mg daily >Continue with Lantus 5 units QHS, novolog 4u postmeal , MDCF with meals > Metformin 1000mg BID, Januvia 100mg daily 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 - TSH 2.1 this admission >levothyroxine increased 200 mcg on 01/26 >She will need repeat thyroid function tests in 6-8 weeks (~March 08) Major depressive disorder, recurrent, moderate CLAUDIA Adjustment disorder with mixed anxiety and depressed mood > continue 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 ENG[employer]ER Wellbutrin and buspar, started on nortriptyline this admission Nutrition - 01/31 albumin 2.4, Prealbumin 10.0, recheck 02/07 -Pt is currently meeting caloric and protein needs > weekly prealbumin and albumin - remains low > D/c corpak 02/02 > Continue current diet with protein supplementation HLD: 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 We will continue to follow prn until [facility] medardo/ miladys. Warren Kinney, PhD, ABPP * Milly Clarke, CASING FLUSHER - 02/11/2018 9:52 AM CDT Formatting of [...] with stress hyperglycemia 2. Hypoglycemia A1c6.5, controlled 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 ENG[employer]ER regimen: Metformin 1000mg BID, Vdfrxwaqd48 mg daily Hypoglycemic episodes on this regimen: None and not checking blood sugars at home Follows up with for diabetes management:Primary care physician at [facility], [place] Diabetic-complications assessment: Retinopathy: None Peripheral neuropathy: Yes on treatment Autonomic neuropathy:None Nephropathy: None Macrovascular complications:None Risk factor assessment: Last lipid profile - None on file On ACEi/ARB: Yes On Statin: yes 3. 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 ENG[employer]ER meds: Metformin + Jardiance / PCP in [place], [place] Review of Systems: Denies chest pain/ [...] 20,000 Units/ sodium bicarbonate 650 mg(#) PRN (Portable Track Line Marker from Rx) Objective: Vital Signs: Last Filed [...] on RA Extremities: Left jamil-pelvectomy, no edema SPORTS BOOK WRITER: Nonfocal, moves all extremities Lab Review General [...] questions or concerns Milly Clarke APRN Pager [phone] Office: [phone] * Cookie Ramireztnay - 02/11/2018 9:25 AM CDT ORTHOTICS/PROSTHETICS Consult Note: NAME: Beata Kaiser ADMISSION DATE: admitted to hospital : 1965 AGE: 52 y.o. ROOM: [place] [address] DOCTOR: Date of Order: 02/10 Date of [...] to the unit at this time via [employer] stretcher van. * Tamara Reilly - 02/10/2018 1:18 PM CDT Patient has left the unit at this time for hyperbarics via [employer] stretcher van. * Nani Magaña, PHARMD - [...] Nani Magaña, PHARMD 02/10/2018 * Milly Clarke, CASING FLUSHER - 02/10/2018 9:42 AM CDT Formatting of [...] with stress hyperglycemia 2. Hypoglycemia A1c6.5, controlled 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ER regimen: Metformin 1000mg BID, Vefvysloi02 mg daily Hypoglycemic episodes on this regimen: None and not checking blood sugars at home Follows up with for diabetes management:Primary care physician at [facility], [place] Diabetic-complications assessment: Retinopathy: None Peripheral neuropathy: Yes on treatment Autonomic neuropathy:None Nephropathy: None Macrovascular complications:None Risk factor assessment: Last lipid profile - None on file On ACEi/ARB: Yes On Statin: yes 3. 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 ENG[employer]ER meds: Metformin + Jardiance / PCP in [place], [place] Review of Systems: Denies chest pain/ [...] 20,000 Units/ sodium bicarbonate 650 mg(#) PRN (Portable Track Line Marker from Rx) Objective: Vital Signs: Last Filed [...] on RA Extremities: Left jamil-pelvectomy, no edema SPORTS BOOK WRITER: Nonfocal, moves all extremities Lab Review General [...] questions or concerns Milly Clarke APRN Pager [phone] Office: [phone] * Ruth Allen MD - 02/10/2018 9:14 [...] Admission Date: 01/14/2018 LOS: 27 days Insurance: [facility] Principal Problem: Left hip amputation status Active Problems: Chondrosarcoma (HCC) Acute blood loss as cause of postoperative anemia Depression Anxiety DM (diabetes mellitus) (HCC) Hypothyroidism Chronic pain Post-op pain Bacteremia Amputated left leg (HCC) Candiduria Assessment/Plan: Beata Lema a 52 y.o.femaleadmitted to [facility] on 01/14/18with the following [...] labs T2DM - A1c 6.5%, controlled - 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 ENG[employer]ER regimen: Metformin thousand milligrams twice a day, [id number] mg daily >Continue with Lantus 12 units QHS, novolog 6u postmeal, MDCF with meals > Metformin 1000mg BID, Januvia 100mg daily 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 - TSH 2.1 this admission >levothyroxine increased 200 mcg on 01/26 >She will need repeat thyroid function tests in 6-8 weeks (~March 08) Major depressive disorder, recurrent, moderate CLAUDIA Adjustment disorder with mixed anxiety and depressed mood > continue 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 ENGINEER Wellbutrin and buspar, started on nortriptyline this admission Nutrition - 01/31 albumin 2.4, Prealbumin 10.0, recheck 02/07 -Pt is currently meeting caloric and protein needs > weekly prealbumin and albumin - remains low > D/c corpak 02/02 > Continue current diet with protein supplementation HLD: 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 Insomnia: nortriptyline 100mg qhs DVT Prophylaxis:Xarelto, [...] Stool Occurrence: 1 Oral Diet Order: Diabetic 8281-0372 Kcal/day (60 g Carb/meal, 30 g Carb/HS [...] 20,000 Units/ sodium bicarbonate 650 mg(#) PRN (Portable Track Line Marker from Rx) Physical Exam VS: BP 115/62 [...] Admission Date: 01/14/2018 LOS: 26 days Insurance: [facility] Principal Problem: Left hip amputation status Active Problems: Chondrosarcoma (HCC) Acute blood loss as cause of postoperative anemia Depression Anxiety DM (diabetes mellitus) (HCC) Hypothyroidism Chronic pain Post-op pain Bacteremia Amputated left leg (HCC) Candiduria Assessment/Plan: Beata Lema a 52 y.o.femaleadmitted to [facility] on 01/14/18with the following [...] labs T2DM - A1c 6.5%, controlled - 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 ENGINEER regimen: Metformin thousand milligrams twice a day, [id number] mg daily >Continue with Lantus 12 units QHS, novolog 6u postmeal, MDCF with meals > Metformin 1000mg BID, Januvia 100mg daily 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 - TSH 2.1 this admission >levothyroxine increased 200 mcg on 01/26 >She will need repeat thyroid function tests in 6-8 weeks (~March 08) Major depressive disorder, recurrent, moderate CLAUDIA Adjustment disorder with mixed anxiety and depressed mood > continue 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 ENGINEER Wellbutrin and buspar, started on nortriptyline this admission Nutrition - 01/31 albumin 2.4, Prealbumin 10.0, recheck 02/07 -Pt is currently meeting caloric and protein needs > weekly prealbumin and albumin - remains low > D/c corpak 02/02 > Continue current diet with protein supplementation HLD: 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 Insomnia: nortriptyline 100mg qhs DVT Prophylaxis:Justynarelnafisa, [...] Stool Occurrence: 1 Oral Diet Order: Diabetic 3011-4236 Kcal/day (60 g Carb/meal, 30 g Carb/HS [...] 20,000 Units/ sodium bicarbonate 650 mg(#) PRN (Portable Track Line Marker from Rx) Physical Exam VS: BP 106/50 [...] of dw 55kg) Oral Diet Order: Diabetic 9496-6909 Kcal/day (60 g Carb/meal, 30 g Carb/HS snack ) Oral Supplement: Boost Glucose Control, Prosource, BID 52 yof admitted to [facility] 01/14/18 s/p L hemipelvectomy 12/14 [...] Leia Zimmerman, KAYA, LD *[id number] * Tamara Reilly - 02/09/2018 1:06 PM CDT Patient has left the unit at this time for Hyperbaric [place] via [facility] stretcher van. * Nani Lynch [...] 20,000 Units/ sodium bicarbonate 650 mg(#) PRN (Portable Track Line Marker from Rx) Physical Examination Vital Signs: Last [...] Type:: Wound Description (Comments): Wound Base Assessment [place] 02/08/2018 8:51 PM Surrounding Skin Assessment Edema [...] AM Wound Volume (cm^3) (Wound Team Only) 64478 cm^3 02/09/2018 11:40 AM Wound Healing % [...] Right (Active) 12/30/17 1209 Right Stoma Assessment Clean;[place] 02/09/2018 12:00 PM Drainage Description [place] 02/09/2018 [...] BSN, CWON Wound/Ostomy Nursing Consult Service Office: [phone] Pager: [phone] Wound/Ostomy Team Pager (After Hours/Weekends): [phone] * Milly Clarke APRN - 02/09/2018 11:23 [...] with stress hyperglycemia 2. Hypoglycemia A1c6.5, controlled 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 ENGINEER regimen: Metformin 1000mg BID, [id number] mg daily Hypoglycemic episodes on this regimen: None and not checking blood sugars at home Follows up with for diabetes management:Primary care physician at [facility]-complications assessment: Retinopathy: None Peripheral neuropathy: Yes on treatment Autonomic neuropathy:None Nephropathy: None Macrovascular complications:None Risk factor assessment: Last lipid profile - None on file On ACEi/ARB: Yes On Statin: yes 3. 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 Yesterday discussed use of Geliyoo karlene, pt to check carbs and keep within 60g/ meal. Pt had decreased appetite yesterday, feels she'll eat all 3 meals today. Continue LT4 therapy Increase to 200mcg on 01.25.2018 due to continued elevation of TSH / low range normal FT4 Repeat TSH testing in 6 weeks, March 08, 2018 On statin therapy Pt seen and discussed with Dr. Castro Subjective Beata Kaiser [...] 12/13/17 DM2 with stress hyperglycemia HgbA1C 6.5%. 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 ENGINEER meds: Metformin + Jardiance / PCP in [place], [place] Review of Systems: Denies chest pain/ [...] 20,000 Units/ sodium bicarbonate 650 mg(#) PRN (Portable Track Line Marker from Rx) Objective: Vital Signs: Last Filed [...] on RA Extremities: Left jamil-pelvectomy, no edema SPORTS BOOK WRITER: Nonfocal, moves all extremities Lab Review General [...] questions or concerns Milly Clarke APRN Pager [phone] Office: [phone] Associated attestation - Yobani Zafar MD - [...] rehab, call with questions Adrienne Zarate MD [phone] * Darlene Garcia RN - 02/08/2018 12:45 [...] with stress hyperglycemia 2. Hypoglycemia A1c6.5, controlled 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 ENGINEER regimen: Metformin 1000mg BID, Laxvnazcz51 mg daily Hypoglycemic episodes on this regimen: None and not checking blood sugars at home Follows up with for diabetes management:Primary care physician at [facility], [place] Diabetic-complications assessment: Retinopathy: None Peripheral neuropathy: Yes on treatment Autonomic neuropathy:None Nephropathy: None Macrovascular complications:None Risk factor assessment: Last lipid profile - None on file On ACEi/ARB: Yes On Statin: yes 3. 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 Discussed use of Geliyoo karlene, pt to check carbs and keep [...] 12/13/17 DM2 with stress hyperglycemia HgbA1C 6.5%. 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 ENGINEER meds: Metformin + Jardiance / PCP in [place], [place] Review of Systems: Denies chest pain/ [...] 20,000 Units/ sodium bicarbonate 650 mg(#) PRN (Portable Track Line Marker from Rx) Objective: Vital Signs: Last Filed [...] Soft, non-tender. Extremities: Left jamil-pelvectomy, no edema SPORTS BOOK WRITER: Nonfocal, moves all extremities Lab Review General [...] questions or concerns Milly Clarke APRN Pager [phone] Office: [phone] * Ruth Allen MD - 02/08/2018 11:06 [...] Admission Date: 01/14/2018 LOS: 25 days Insurance: [facility] Principal Problem: Left hip amputation status Active Problems: Chondrosarcoma (HCC) Acute blood loss as cause of postoperative anemia Depression Anxiety DM (diabetes mellitus) (HCC) Hypothyroidism Chronic pain Post-op pain Bacteremia Amputated left leg (HCC) Candiduria Assessment/Plan: Beata Lema a 52 y.o.femalead[facility]18with the following [...] labs T2DM - A1c 6.5%, controlled - 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 ENGINEER regimen: Metformin thousand milligrams twice a day, mg daily >Continue with Lantus 12 units QHS, novolog 6u postmeal, MDCF with meals > Metformin 1000mg BID, Januvia 100mg daily 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 - TSH 2.1 this admission >levothyroxine increased 200 mcg on 01/26 >She will need repeat thyroid function tests in 6-8 weeks (~March 08) Major depressive disorder, recurrent, moderate CLAUDIA Adjustment disorder with mixed anxiety and depressed mood > continue 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 ENG[employer]ER Wellbutrin and buspar, started on nortriptyline this admission Nutrition - 01/31 albumin 2.4, Prealbumin 10.0, recheck 02/07 -Pt is currently meeting caloric and protein needs > weekly prealbumin and albumin - remains low > D/c corpak 02/02 > Continue current diet with protein supplementation HLD: 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 Insomnia: nortriptyline 100mg qhs DVT Prophylaxis:Xarelto, [...] Stool Occurrence: 1 Oral Diet Order: Diabetic 0831-7150 Kcal/day (60 g Carb/meal, 30 g Carb/HS [...] 20,000 Units/ sodium bicarbonate 650 mg(#) PRN (Portable Track Line Marker from Rx) Physical Exam VS: BP 120/59 [...] at this time for Hyperbaric [place] via [employer] van. * Ruth Allen MD - 02/07/2018 [...] Admission Date: 01/14/2018 LOS: 24 days Insurance: [facility] Principal Problem: Left hip amputation status Active Problems: Chondrosarcoma (HCC) Acute blood loss as cause of postoperative anemia Depression Anxiety DM (diabetes mellitus) (HCC) Hypothyroidism Chronic pain Post-op pain Bacteremia Amputated left leg (HCC) Candiduria Assessment/Plan: Beata Lema a 52 y.o.femaleadmitted to [facility] on 01/14/18with the following [...] labs T2DM - A1c 6.5%, controlled - 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 ENG[employer]ER regimen: Metformin thousand milligrams twice a day, [id number] mg daily >Continue with Lantus 20 units QHS, novolog 14u postmeal, MDCF 5x per day 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 - TSH 2.1 this admission >levothyroxine increased 200 mcg on 01/26 >She will need repeat thyroid function tests in 6-8 weeks (~March 08) Major depressive disorder, recurrent, moderate CLAUDIA Adjustment disorder with mixed anxiety and depressed mood > continue 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 ENG[employer]ER Wellbutrin and buspar, started on nortriptyline this admission Nutrition - 01/31 albumin 2.4, Prealbumin 10.0, recheck 02/07 -Pt is currently meeting caloric and protein needs > weekly prealbumin and albumin - remains low > D/c corpak 02/02 > Continue current diet with protein supplementation HLD: 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 Insomnia: nortriptyline 50mg qhs DVT Prophylaxis:Xarelto, [...] Stool Occurrence: 1 Oral Diet Order: Diabetic 4939-0439 Kcal/day (60 g Carb/meal, 30 g Carb/HS [...] 20,000 Units/ sodium bicarbonate 650 mg(#) PRN (Portable Track Line Marker from Rx) Physical Exam VS: BP 113/57 [...] Pale 02/07/2018 12:00 PM Wound Site Closure [place] 02/07/2018 12:00 PM Wound Drainage Amount Small [...] BSN, CWON Wound/Ostomy Nursing Consult Service Office: [phone] Pager: [phone] Wound/Ostomy Team Pager (After Hours/Weekends): [phone] * Milly Clarke APRN - 02/07/2018 11:23 [...] with stress hyperglycemia 2. Hypoglycemia A1c6.5, controlled 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 regimen: Metformin 1000mg BID, [id number] mg daily Hypoglycemic episodes on this regimen: None and not checking blood sugars at home Follows up with for diabetes management:Primary care physician at [facility], [place] Diabetic-complications assessment: Retinopathy: None Peripheral neuropathy: Yes on treatment Autonomic neuropathy:None Nephropathy: None Macrovascular complications:None Risk factor assessment: Last lipid profile - None on file On ACEi/ARB: Yes On Statin: yes 3. 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 meds: Metformin + Jardiance / PCP in [place], [place] Review of Systems: Denies chest pain/ [...] 20,000 Units/ sodium bicarbonate 650 mg(#) PRN (Portable Track Line Marker from Rx) Objective: Vital Signs: Last Filed [...] Breathing comfortably on RA Extremities: Left jamil-pelvectomy SPORTS BOOK WRITER: Nonfocal, moves all extremities Lab Review General [...] questions or concerns Milly Clarke APRN Pager [phone] Office: [phone] * Ivan Barrera RN - 02/07/2018 7:13 [...] Admission Date: 01/14/2018 LOS: 23 days Insurance: [facility] Principal Problem: Left hip amputation status Active Problems: Chondrosarcoma (HCC) Acute blood loss as cause of postoperative anemia Depression Anxiety DM (diabetes mellitus) (HCC) Hypothyroidism Chronic pain Post-op pain Bacteremia Amputated left leg (HCC) Candiduria Assessment/Plan: Beata Lema a 52 y.o.femaleadmitted to [facility] on 01[facility]18with the following [...] labs T2DM - A1c 6.5%, controlled - 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 ENG[employer]ER regimen: Metformin thousand milligrams twice a day, [id number] mg daily >Continue with Lantus 20 units QHS, novolog 14u postmeal, MDCF 5x per day 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 - TSH 2.1 this admission >levothyroxine increased 200 mcg on 01/26 >She will need repeat thyroid function tests in 6-8 weeks (~March 08) Major depressive disorder, recurrent, moderate CLAUDIA Adjustment disorder with mixed anxiety and depressed mood > continue 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 ENG[employer]ER Wellbutrin and buspar, started on nortriptyline this admission Nutrition - 01/31 albumin 2.4, Prealbumin 10.0, recheck 02/07 -Pt is currently meeting caloric and protein needs > weekly prealbumin and albumin - remains low > D/c corpak 02/02 > Continue current diet with protein supplementation HLD: 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 Insomnia: nortriptyline 50mg qhs DVT Prophylaxis:Xarelto, [...] Stool Occurrence: 1 Oral Diet Order: Diabetic 1714-4500 Kcal/day (60 g Carb/meal, 30 g Carb/HS [...] 20,000 Units/ sodium bicarbonate 650 mg(#) PRN (Portable Track Line Marker from Rx) Physical Exam VS: BP 127/66 [...] success in stopping the leaking. call center assistant ortho resident paged to help redo the [...] Admission Date: 01/14/2018 LOS: 22 days Insurance: [facility] Principal Problem: Left hip amputation status Active Problems: Chondrosarcoma (HCC) Acute blood loss as cause of postoperative anemia Depression Anxiety DM (diabetes mellitus) (HCC) Hypothyroidism Chronic pain Post-op pain Bacteremia Amputated left leg (HCC) Candiduria Assessment/Plan: Beata Lema a 52 y.o.femaleadmitted to [facility] on 01/14/18with the following [...] labs T2DM - A1c 6.5%, controlled - 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 ENG[employer]ER regimen: Metformin thousand milligrams twice a day, [id number] mg daily >Continue with Lantus 20 units QHS, novolog 14u postmeal, MDCF 5x per day 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 - TSH 2.1 this admission >levothyroxine increased 200 mcg on 01/26 >She will need repeat thyroid function tests in 6-8 weeks (~March 08) Major depressive disorder, recurrent, moderate CLAUDIA Adjustment disorder with mixed anxiety and depressed mood > continue 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 ENGINEER Wellbutrin and buspar, started on nortriptyline this admission Nutrition - 01/31 albumin 2.4, Prealbumin 10.0, recheck 02/07 -Pt is currently meeting caloric and protein needs > weekly prealbumin and albumin - remains low > D/c corpak 02/02 > Continue current diet with protein supplementation HLD: 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 Insomnia: nortriptyline 50mg qhs DVT Prophylaxis:Xarelto, [...] Stool Occurrence: 1 Oral Diet Order: Diabetic 8307-9487 Kcal/day (60 g Carb/meal, 30 g Carb/HS [...] 20,000 Units/ sodium bicarbonate 650 mg(#) PRN (Portable Track Line Marker from Rx) Physical Exam VS: BP 116/62 [...] will round on Wednesday. Please call ID seasonal package handler in the interim if questions arise. 8. [...] 20,000 Units/ sodium bicarbonate 650 mg(#) PRN (Portable Track Line Marker from Rx) Physical Examination Vital Signs: Last [...] Camarena, PhD Clinical Psychology Postdoctoral Fellow Pager: [phone] * Nneka Garsia RN - 02/04/2018 4:25 [...] Eschar;Yellow;[place];Moist 02/04/2018 4:00 PM Surrounding Skin Assessment Purple;[place];Intact 02/04/2018 4:00 PM Wound Site Closure None [...] Except 01/24/2018 4:00 AM Wound Base Assessment [place];Moist;Slough;[place] 02/04/2018 4:00 PM Surrounding Skin Assessment Intact;Macerated [...] Admission Date: 01/14/2018 LOS: 21 days Insurance: [facility] Principal Problem: Left hip amputation status Active Problems: Chondrosarcoma (HCC) Acute blood loss as cause of postoperative anemia Depression Anxiety DM (diabetes mellitus) (HCC) Hypothyroidism Chronic pain Post-op pain Bacteremia Amputated left leg (HCC) Candiduria Assessment/Plan: Beata Lema a 52 y.o.femaleadmitted to [facility] on 01/14/18with the following [...] labs T2DM - A1c 6.5%, controlled - 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 ENGINEER regimen: Metformin thousand milligrams twice a day, [id number] mg daily >Continue with Lantus 20 units QHS, novolog 14u postmeal, MDCF 5x per day 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 - TSH 2.1 this admission >levothyroxine increased 200 mcg on 01/26 >She will need repeat thyroid function tests in 6-8 weeks (~March 08) Major depressive disorder, recurrent, moderate CLAUDIA Adjustment disorder with mixed anxiety and depressed mood > continue 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 ENGINEER Wellbutrin and buspar, started on nortriptyline this admission Nutrition - 01/31 albumin 2.4, Prealbumin 10.0, recheck 02/07 -Pt is currently meeting caloric and protein needs > weekly prealbumin and albumin - remains low > D/c corpak 02/02 > Continue current diet with protein supplementation HLD: 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 Insomnia: nortriptyline 50mg qhs DVT Prophylaxis:Xarelto, [...] Stool Occurrence: 1 Oral Diet Order: Diabetic 1873-4541 Kcal/day (60 g Carb/meal, 30 g Carb/HS [...] 20,000 Units/ sodium bicarbonate 650 mg(#) PRN (Portable Track Line Marker from Rx) Physical Exam VS: BP 116/54 [...] 20,000 Units/ sodium bicarbonate 650 mg(#) PRN (Portable Track Line Marker from Rx) Prescriptions Prior to Admission Medication [...] Take 1 capsule via feeding tube PRN (Portable Track Line Marker from Rx) ( Occluded Feeding Tube). pantoprazole [...] Intact 02/01/2018 9:05 AM Wound Site Closure [place] 02/01/2018 9:05 AM Wound Drainage Amount Scant [...] Clean;Moist 02/03/2018 10:00 PM Surrounding Skin Assessment Dry;Intact;[place] 02/03/2018 10:00 PM Wound Site Closure Open [...] Slough 02/03/2018 10:00 PM Surrounding Skin Assessment [place] 02/03/2018 10:00 PM Wound Site Closure Open [...] None 01/23/2018 8:25 PM Wound Base Assessment [place] 01/23/2018 8:25 PM Surrounding Skin Assessment Dry;Intact 01/23/2018 8:25 PM [REMOVED] Ileal Conduit 12/30/17 1115 Left (Removed) 12/30/17 1115 Left Removed 12/30/17 1607 Colostomy 12/30/17 1209 Right (Active) 12/30/17 1209 Right Agree With My Assessment? Except 01/24/2018 4:00 AM Stoma Assessment Red;[place] 02/02/2018 9:00 AM Drainage Description Brown 02/04/2018 [...] with stress hyperglycemia 2. Hypoglycemia A1c6.5, controlled 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 ENG[employer]ER regimen: Metformin 1000mg BID, Uwseohywe09 mg daily Hypoglycemic episodes on this regimen: None and not checking blood sugars at home Follows up with for diabetes management:Primary care physician at [facility], [place] Diabetic-complications assessment: Retinopathy: None Peripheral neuropathy: Yes on treatment Autonomic neuropathy:None Nephropathy: None Macrovascular complications:None Risk factor assessment: Last lipid profile - None on file On ACEi/ARB: Yes On Statin: yes 3. 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 ENGINEER meds: Metformin + Jardiance / PCP in [place], [place] Review of Systems: Denies chest pain/ [...] 20,000 Units/ sodium bicarbonate 650 mg(#) PRN (Portable Track Line Marker from Rx) Objective: Vital Signs: Last Filed [...] Breathing comfortably on RA Extremities: Left jamil-pelvectomy SPORTS BOOK WRITER: Nonfocal, moves all extremities Lab Review General [...] questions or concerns Milly Clarke APRN Pager [phone] Office: [phone] ATTESTATION I personally performed the banuelos portions [...] of dw 55kg) Oral Diet Order: Diabetic 8685-4609 Kcal/day (60 g Carb/meal, 30 g Carb/HS snack ) Oral Supplement: Boost Glucose Control, BID, Prosource 52 yof admitted to [facility] 01/14/18 s/p L hemipelvectomy 12/14 [...] at this time for hyperbaric [place] via [email or web address] van. * Ruth Allen MD - 02/03/2018 [...] Admission Date: 01/14/2018 LOS: 20 days Insurance: [facility] Principal Problem: Left hip amputation status Active Problems: Chondrosarcoma (HCC) Acute blood loss as cause of postoperative anemia Depression Anxiety DM (diabetes mellitus) (HCC) Hypothyroidism Chronic pain Post-op pain Bacteremia Amputated left leg (HCC) Candiduria Assessment/Plan: Beata Lema a 52 y.o.femaleadmitted to [facility] on 01/14/18with the following [...] labs T2DM - A1c 6.5%, controlled - 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 ENGINEER regimen: Metformin thousand milligrams twice a day, [id number] mg daily >Continue with Lantus 20 units QHS, novolog 14u postmeal, MDCF 5x per day 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 - TSH 2.1 this admission >levothyroxine increased 200 mcg on 01/26 >She will need repeat thyroid function tests in 6-8 weeks (~March 08) Major depressive disorder, recurrent, moderate CLAUDIA Adjustment disorder with mixed anxiety and depressed mood > continue 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 ENGINEER Wellbutrin and buspar, started on nortriptyline this admission Nutrition - 01/31 albumin 2.4, Prealbumin 10.0, recheck 02/07 -Pt is currently meeting caloric and protein needs > weekly prealbumin and albumin - remains low > D/c corpak 02/02 > Continue current diet with protein supplementation HLD: 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 Insomnia: nortriptyline 50mg qhs DVT Prophylaxis:Xarelto, [...] Stool Occurrence: 1 Oral Diet Order: Diabetic 4064-3826 Kcal/day (60 g Carb/meal, 30 g Carb/HS [...] 20,000 Units/ sodium bicarbonate 650 mg(#) PRN (Portable Track Line Marker from Rx) Physical Exam VS: BP 130/68 [...] with stress hyperglycemia 2. Hypoglycemia A1c6.5, controlled 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 ENGINEER regimen: Metformin 1000mg BID, Enpouobdw41 mg daily Hypoglycemic episodes on this regimen: None and not checking blood sugars at home Follows up with for diabetes management:Primary care physician at [facility]-complications assessment: Retinopathy: None Peripheral neuropathy: Yes on treatment Autonomic neuropathy:None Nephropathy: None Macrovascular complications:None Risk factor assessment: Last lipid profile - None on file On ACEi/ARB: Yes On Statin: yes 3. 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 ENGINEER meds: Metformin + Jardiance / PCP in [place], [place] Review of Systems: Denies chest pain/ [...] 20,000 Units/ sodium bicarbonate 650 mg(#) PRN (Portable Track Line Marker from Rx) Objective: Vital Signs: Last Filed [...] Extremities: Left jamil-pelvectomy Pulses: 2+ and symmetric SPORTS BOOK WRITER: Nonfocal, moves all extremities Lab Review General [...] questions or concerns Milly Clarke APRN Pager [phone] Office: [phone] ATTESTATION I personally performed the banuelos portions of the E/M visit, discussed case with Nurse Practitioner and concur with documentation of history, physical exam, assessment, and treatment plan unless otherwise noted. Case discussed with the AIR ANALYSIS TECHNICIAN but not seen as she was in [...] Admission Date: 01/14/2018 LOS: 19 days Insurance: [facility] Principal Problem: Left hip amputation status Active Problems: Chondrosarcoma (HCC) Acute blood loss as cause of postoperative anemia Depression Anxiety DM (diabetes mellitus) (HCC) Hypothyroidism Chronic pain Post-op pain Bacteremia Amputated left leg (HCC) Candiduria Assessment/Plan: Beata Lema a 52 y.o.femaleadmitted to [facility] on 01/14/18with the following [...] labs T2DM - A1c 6.5%, controlled - 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 ENGINEER regimen: Metformin thousand milligrams twice a day, [id number] mg daily >Continue with Lantus 20 units QHS, novolog 12u postmeal, MDCF 5x per day 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 - TSH 2.1 this admission >levothyroxine increased 200 mcg on 01/26 >She will need repeat thyroid function tests in 6-8 weeks (~March 08) Major depressive disorder, recurrent, moderate CLAUDIA Adjustment disorder with mixed anxiety and depressed mood > continue 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 ENGINEER Wellbutrin and buspar, started on nortriptyline this admission Nutrition - 01/31 albumin 2.4, Prealbumin 10.0, recheck 02/07 -Pt is currently meeting caloric and protein needs > weekly prealbumin and albumin - remains low > D/c corpak 02/02 > Continue current diet with protein supplementation HLD: 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 Insomnia: nortriptyline 50mg qhs DVT Prophylaxis:Xarelto, [...] Stool Occurrence: 1 Oral Diet Order: Diabetic 6543-2448 Kcal/day (60 g Carb/meal, 30 g Carb/HS [...] 20,000 Units/ sodium bicarbonate 650 mg(#) PRN (Portable Track Line Marker from Rx) Physical Exam VS: BP 108/55 [...] with stress hyperglycemia 2. Hypoglycemia A1c6.5, controlled 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 ENGINEER regimen: Metformin 1000mg BID, Ghsyvsrmm19 mg daily Hypoglycemic episodes on this regimen: None and not checking blood sugars at home Follows up with for diabetes management:Primary care physician at [facility], [place] Diabetic-complications assessment: Retinopathy: None Peripheral neuropathy: Yes on treatment Autonomic neuropathy:None Nephropathy: None Macrovascular complications:None Risk factor assessment: Last lipid profile - None on file On ACEi/ARB: Yes On Statin: yes 3. 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 ENGINEER meds: Metformin + Jardiance / PCP in [place], [place] Review of Systems: Denies chest pain/ [...] 20,000 Units/ sodium bicarbonate 650 mg(#) PRN (Portable Track Line Marker from Rx) Objective: Vital Signs: Last Filed [...] questions or concerns Milly Clarke APRN Pager [phone] Office: [phone] ATTESTATION I personally performed the banuelos portions [...] Kinney, PhD - 02/02/2018 8:30 AM CDT [id number] Pt was seen for follow-up and cog [...] in therapy). Wandy Cross M.A. Neurorehabilitation Psychology Director [employer] ATTESTATION: I participated in and discussed this session and pt's care with the instructional systems design consultant and agree with her note and recs as amended (in blue) above. We will continue to follow prn until [facility] d/c. Warren Kinney, PhD, ABPP * [place] [...] 20,000 Units/ sodium bicarbonate 650 mg(#) PRN (Portable Track Line Marker from Rx) Physical Examination Vital Signs: Last [...] of dw 55kg) Oral Diet Order: Diabetic 0397-9870 Kcal/day (60 g Carb/meal, 30 g Carb/HS [...] with stress hyperglycemia 2. Hypoglycemia A1c6.5, controlled 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 ENGINEER regimen: Metformin 1000mg BID, Kxmchxkvj32 mg daily Hypoglycemic episodes on this regimen: None and not checking blood sugars at home Follows up with for diabetes management:Primary care physician at [facility]-complications assessment: Retinopathy: None Peripheral neuropathy: Yes on treatment Autonomic neuropathy:None Nephropathy: None Macrovascular complications:None Risk factor assessment: Last lipid profile - None on file On ACEi/ARB: Yes On Statin: yes 3. 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 ENGINEER meds: Metformin + Jardiance / PCP in [place], [place] Review of Systems: Denies chest pain/ [...] 20,000 Units/ sodium bicarbonate 650 mg(#) PRN (Portable Track Line Marker from Rx) Objective: Vital Signs: Last Filed [...] Extremities: Left jamil-pelvectomy Pulses: 2+ and symmetric SPORTS BOOK WRITER: Nonfocal, moves all extremities Lab Review General [...] hours) POC Glucose (Download): (!) 111 (02/01/18 3824) Radiology and other Diagnostics Review: No pertinent radiology. Thank you for the opportunity to participate in this pt's care Please page with any questions or concerns Milly ClarkeHERNAN Pager [phone] Office: [phone] ATTESTATION I personally performed the banuelos portions [...] Admission Date: 01/14/2018 LOS: 18 days Insurance: [facility] Principal Problem: Left hip amputation status Active Problems: Chondrosarcoma (HCC) Acute blood loss as cause of postoperative anemia Depression Anxiety DM (diabetes mellitus) (HCC) Hypothyroidism Chronic pain Post-op pain Bacteremia Amputated left leg (HCC) Candiduria Assessment/Plan: Beata Lema a 52 y.o.femaleadmitted to [facility] on 01[facility]18with the following [...] labs T2DM - A1c 6.5%, controlled - 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 ENGINEER regimen: Metformin thousand milligrams twice a day, [id number] mg daily >Continue with Lantus 20 units QHS, novolog 12u postmeal, MDCF 5x per day >Continue NPH 30 units with nocturnal tube feeds + Novolog 8 units SQ qhs with nocturnal TFs - please hold NPH if tube feed are held and give at the start of tube feed 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 - TSH 2.1 this admission >levothyroxine increased 200 mcg on 01/26 >She will need repeat thyroid function tests in 6-8 weeks Major depressive disorder, recurrent, moderate CLAUDIA Adjustment disorder with mixed anxiety and depressed mood > continue 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 ENGINEER Wellbutrin and buspar, started on nortriptyline this admission Nutrition - 01/31 albumin 2.4, Prealbumin 10.0, recheck 02/07 -Pt is currently meeting caloric but not protein needs >Current diet: diabeticand nocturnal tube feeds - Nutren 1.5 to 30ml/hr x 6 hrs + 2 pkt Prosource daily > [employer] consult and d/c tube feeds once eating to meet needs > weekly prealbumin and albumin - remains low > Will hold TF is pt able to consume 2 Prosource daily by mouth with continued Boost GC x 2 and menu food >TF's held 01/29, 01/30, and 01/31 2/2 good PO intake >Will f/u with composition professor to see when corpak can be d/c HLD: 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 Insomnia: nortriptyline 50mg qhs DVT Prophylaxis:Xarelto, [...] Stool Occurrence: 1 Oral Diet Order: Diabetic 0729-7107 Kcal/day (60 g Carb/meal, 30 g Carb/HS [...] 20,000 Units/ sodium bicarbonate 650 mg(#) PRN (Portable Track Line Marker from Rx) Physical Exam VS: BP 120/59 [...] Clean;Moist 01/31/2018 8:47 PM Surrounding Skin Assessment Dry;Intact;[place] 01/31/2018 8:47 PM Wound Site Closure Open [...] Yellow;[place] 02/01/2018 9:05 AM Surrounding Skin Assessment Induration;Edema;[place] 02/01/2018 9:05 AM Wound Site Closure Open [...] Except 01/24/2018 4:00 AM Wound Base Assessment Moist;[place];Slough;[place];Yellow 02/01/2018 9:05 AM Surrounding Skin Assessment Intact;Edema [...] Intact;Edema 02/01/2018 9:05 AM Wound Site Closure [place] 02/01/2018 9:05 AM Wound Drainage Amount Scant [...] Assessment? Except 01/24/2018 4:00 AM Stoma Assessment Red;[place] 01/31/2018 7:52 PM Drainage Description Brown 01/31/2018 [...] hoping to get back on schedule of [facility], if vac will last we will [...] Garsia RN, BSN Wound /Ostomy Team Pager [phone] After Hours Wound/Ostomy team pager [phone] * Indy Isabel MD - 01/31/2018 4:52 [...] for fluconazole resistance - Treating given indwelling melchro and inability to remove melchor d/t recent [...] otherwise has been afebrile She went to [facility] today. Reports that went well. She denies [...] 20,000 Units/ sodium bicarbonate 650 mg(#) PRN (Portable Track Line Marker from Rx) Physical Examination Vital Signs: Last [...] follow, call with questions Adrienne Zarate MD [phone] * Marco Payne MD - 01/31/2018 10:23 [...] to transition to a regimen similar to 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 ENGINEER: Metformin 1000 mg BID and Jardiance 25mg [...] reviewed the assessment and recommendations with the AIR ANALYSIS TECHNICIAN. The patient was not available to be [...] hemipelvectomy DM2 with stress hyperglycemia HgbA1C 6.5%. 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 ENGINEER meds: Metformin + Jardiance / PCP in [place], [place] Past Medical History: Diagnosis Date Anxiety [...] 20,000 Units/ sodium bicarbonate 650 mg(#) PRN (Portable Track Line Marker from Rx) Objective Vital Signs: Last Filed [...] right lower extremity Pulses: 2+ and symmetric SPORTS BOOK WRITER: Nonfocal, moves all extremities Lab Review Comprehensive [...] contact me with any questions. Milly BOGGS, TELEPHONIC RN-BC, CDE Endocrine Nurse Practitioner Pager [phone] Office: [phone] * Ruth Allen MD - 01/31/2018 9:36 [...] still low, meeting protein needs orally per [employer]. Has supplemental tube feeds prn. Pain with [...] Admission Date: 01/14/2018 LOS: 17 days Insurance: [facility] Principal Problem: Left hip amputation status Active Problems: Chondrosarcoma (HCC) Acute blood loss as cause of postoperative anemia Depression Anxiety DM (diabetes mellitus) (HCC) Hypothyroidism Chronic pain Post-op pain Bacteremia Amputated left leg (HCC) Candiduria Assessment/Plan: Beata Lema a 52 y.o.femalead[facility]18with the following [...] labs T2DM - A1c 6.5%, controlled - 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 ENGINEER regimen: Metformin thousand milligrams twice a day, [id number] mg daily >Continue with Lantus 20 units QHS, novolog 12u postmeal, MDCF 5x per day >Continue NPH 30 units with nocturnal tube feeds + Novolog 8 units SQ qhs with nocturnal TFs - please hold NPH if tube feed are held and give at the start of tube feed 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 - TSH 2.1 this admission >levothyroxine increased 200 mcg on 01/26 >She will need repeat thyroid function tests in 6-8 weeks Major depressive disorder, recurrent, moderate CLAUDIA Adjustment disorder with mixed anxiety and depressed mood > continue 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 ENGINEER Wellbutrin and buspar, started on nortriptyline this admission Nutrition - 01/31 albumin 2.4, Prealbumin 10.0, recheck 02/07 -Pt is currently meeting caloric but not protein needs >Current diet: diabeticand nocturnal tube feeds - Nutren 1.5 to 30ml/hr x 6 hrs + 2 pkt Prosource daily > [employer] consult and d/c tube feeds once eating to meet needs > weekly prealbumin and albumin - remains low > Will hold TF is pt able to consume 2 Prosource daily by mouth with continued Boost GC x 2 and menu food >TF's held 01/29 and 01/30 2/2 good PO intake HLD: 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 Insomnia: nortriptyline 50mg qhs DVT Prophylaxis:Xarelto, will discharge on it Subjective No acute events overnight. Pt sitting in WC in room when seen this am. Pt endorsed pain on her left side from sitting in WC and was planning on transferring to bed shortly. Pt seemed encouraged that TF's were held x2 nights. Will clarify with composition professor how much longer she will need corpak. [...] Stool Occurrence: 1 Oral Diet Order: Diabetic 4567-9002 Kcal/day (60 g Carb/meal, 30 g Carb/HS [...] 20,000 Units/ sodium bicarbonate 650 mg(#) PRN (Portable Track Line Marker from Rx) Physical Exam VS: BP 105/53 [...] in 6 weeks On statin therapy HPI: Baeta Kaiser is a 52 y.o. female. Beata [...] hemipelvectomy DM2 with stress hyperglycemia HgbA1C 6.5%. 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 ENGINEER meds: Metformin + Jardiance / PCP in [place], [place] Past Medical History: Diagnosis Date Anxiety [...] 20,000 Units/ sodium bicarbonate 650 mg(#) PRN (Portable Track Line Marker from Rx) Objective Vital Signs: Last Filed [...] an A1c level <7%. Serenity Concepcion MD [phone] * Arnaldo Delacruz MD - 01/30/2018 9:31 AM CDT Formatting of this note may be different from the original. Physical Medicine & Rehabilitation Progress Note Today's Date: 01/30/2018 Admission Date: 01/14/2018 LOS: 16 days Insurance: [facility] Principal Problem: Left hip amputation status Active Problems: Chondrosarcoma (HCC) Acute blood loss as cause of postoperative anemia Depression Anxiety DM (diabetes mellitus) (HCC) Hypothyroidism Chronic pain Post-op pain Bacteremia Amputated left leg (HCC) Candiduria Assessment/Plan: Beata Lema a 52 y.o.femaleadmitted to [facility] on 01/14[facility]18with the following [...] PRBC T2DM - A1c 6.5%, controlled - 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 ENGINEER regimen: Metformin thousand milligrams twice a day, [id number] mg daily >Continue with Lantus 20 units QHS, novolog 12u postmeal, MDCF 5x per day >Continue NPH 30 units with nocturnal tube feeds + Novolog 8 units SQ qhs with nocturnal TFs - please hold NPH if tube feed are held and give at the start of tube feed 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 - TSH 2.1 this admission >levothyroxine increased 200 mcg on 01/26 >She will need repeat thyroid function tests in 6-8 weeks Major depressive disorder, recurrent, moderate CLAUDIA Adjustment disorder with mixed anxiety and depressed mood > continue 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 ENGINEER Wellbutrin and buspar, started on nortriptyline this admission Nutrition - 01/24 albumin 2.4, Prealbumin 11.0, recheck 01/31 -Pt is currently meeting caloric but not protein needs >Current diet: diabeticand nocturnal tube feeds - Nutren 1.5 to 30ml/hr x 6 hrs + 2 pkt Prosource daily > [employer] consult and d/c tube feeds once eating to meet needs > weekly prealbumin and albumin > Will hold TF is pt able to consume 2 Prosource daily by mouth with continued Boost GC x 2 and menu food HLD: 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 Insomnia: nortriptyline 50mg qhs DVT Prophylaxis:Xarelto, [...] Stool Occurrence: 1 Oral Diet Order: Diabetic 0356-1212 Kcal/day (60 g Carb/meal, 30 g Carb/HS [...] 20,000 Units/ sodium bicarbonate 650 mg(#) PRN (Portable Track Line Marker from Rx) Physical Exam VS: BP 113/65 [...] and adjust therapy as needed. PIYUSH ManD, [facility] 01/29/2018 * Arnaldo Delacruz MD - 01/29/2018 9:37 AM CDT Formatting of this note may be different from the original. Physical Medicine & Rehabilitation Progress Note Today's Date: 01/29/2018 Admission Date: 01/14/2018 LOS: 15 days Insurance: [facility] Principal Problem: Left hip amputation status Active Problems: Chondrosarcoma (HCC) Acute blood loss as cause of postoperative anemia Depression Anxiety DM (diabetes mellitus) (HCC) Hypothyroidism Chronic pain Post-op pain Bacteremia Amputated left leg (HCC) Candiduria Assessment/Plan: Beata Lema a 52 y.o.femaleadmitted to [facility] on 01/14/18with the following [...] PRBC T2DM - A1c 6.5%, controlled - 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 ENGINEER regimen: Metformin thousand milligrams twice a day, [id number] mg daily >Continue with Lantus 20 units QHS, novolog 12u postmeal, MDCF 5x per day >Continue NPH 30 units with nocturnal tube feeds + Novolog 8 units SQ qhs with nocturnal TFs - please hold NPH if tube feed are held and give at the start of tube feed 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 - TSH 2.1 this admission >levothyroxine increased 200 mcg on 01/26 >She will need repeat thyroid function tests in 6-8 weeks Major depressive disorder, recurrent, moderate CLAUDIA Adjustment disorder with mixed anxiety and depressed mood > continue 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 ENGINEER Wellbutrin and buspar, started on nortriptyline this admission Nutrition - 01/24 albumin 2.4, Prealbumin 11.0, recheck 01/31 -Pt is currently meeting caloric but not protein needs >Current diet: diabeticand nocturnal tube feeds - Nutren 1.5 to 30ml/hr x 6 hrs + 2 pkt Prosource daily > [employer] consult and d/c tube feeds once eating to meet needs > weekly prealbumin and albumin > Will hold TF is pt able to consume 2 Prosource daily by mouth with continued Boost GC x 2 and menu food HLD: 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 Insomnia: nortriptyline 50mg qhs DVT Prophylaxis:Xarelto, [...] Stool Occurrence: 1 Oral Diet Order: Diabetic 6435-2492 Kcal/day (60 g Carb/meal, 30 g Carb/HS [...] 20,000 Units/ sodium bicarbonate 650 mg(#) PRN (Portable Track Line Marker from Rx) Physical Exam VS: BP 110/50 [...] drunk the two pro source liquids per machine silk screen printer recommendation. NPH Insulin and 3 units novolg [...] hemipelvectomy DM2 with stress hyperglycemia HgbA1C 6.5%. 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 ENGINEER meds: Metformin + Jardiance / PCP in [place], [place] Past Medical History: Diagnosis Date Anxiety [...] 20,000 Units/ sodium bicarbonate 650 mg(#) PRN (Portable Track Line Marker from Rx) Objective Vital Signs: Last Filed [...] an A1c level <7%. Serenity Concepcion MD [phone] * Hedy Pearce, PT - 01/28/2018 3:56 PM CDT Formatting of this note may be different from the original. PHYSICAL THERAPY NOTE SUBJECTIVE: Beata Kaiser is a 52 yo F who presented to [facility] on 12/13/17 for scheduled left hemipelvectomy and [...] Yellow;[place] 01/28/2018 11:05 AM Surrounding Skin Assessment Edema;[place];Induration 01/28/2018 11:05 AM Wound Site Closure None;Open [...] iodine, 4x4, and tegaderm Wound Base Assessment [place] 01/28/2018 11:05 AM Surrounding Skin Assessment Intact;Pale;Purple [...] 4X4S, HYPAFIX, WOUND VAC Wound Base Assessment Moist;Pale;[place];Yellow;[place] 01/28/2018 11:05 AM Surrounding Skin Assessment Intact [...] xeroform, 4x4's, and tegaderm. Wound Base Assessment [place]char;[place] intact 01/28/2018 11:05 AM Surrounding Skin Assessment [...] Yellow;[place] 01/28/2018 11:05 AM Surrounding Skin Assessment Edema;[place];Induration 01/28/2018 11:05 AM Wound Site Closure None;Open [...] 4X4S, HYPAFIX, WOUND VAC Wound Base Assessment Moist;Pale;[place];Yellow;[place] 01/28/2018 11:05 AM Surrounding Skin Assessment Intact [...] long strip and used to pack wound [employer] not available on unit supply cart. Hydrofera Blue Ready foam used as alternative and placed over areas of moist eschar, including left groin wounds, for moisture management. Will continue to follow. Jennifer Diaz RN, BSN, ON Wound/Ostomy Nursing Consult Service Office: [phone] Pager: [phone] Wound/Ostomy Team Pager (After Hours/Weekends): [phone] * Leia Zimmerman - 01/28/2018 10:34 AM CDT CLINICAL NUTRITION Clinical Nutrition Follow-Up Summary Nutrition Assessment of Patient: Malnutrition Assessment: Adequately nourished prior to admission Current Oral Intake: Adequate Estimated Calorie Needs: 1660 (30kcal/kg of dw 55kg) Estimated Protein Needs: 100-120 (1.5-2.2g/kg of dw 55kg) Oral Diet Order: Diabetic 1604-0175 Kcal/day (60 g Carb/meal, 30 g Carb/HS [...] 137ml free water. 52 yof admitted to [facility] 01/14/18 s/p L hemipelvectomy 12/14 [...] to exclude 8. Call ID call center assistant over the weekend if acute needs arise [...] 20,000 Units/ sodium bicarbonate 650 mg(#) PRN (Portable Track Line Marker from Rx) Physical Examination Vital Signs: Last [...] get CT AP and RLE US. Per [employer], can hold TF if continues to eat [...] Admission Date: 01/14/2018 LOS: 14 days Insurance: [facility] Principal Problem: Left hip amputation status Active Problems: Chondrosarcoma (HCC) Acute blood loss as cause of postoperative anemia Depression Anxiety DM (diabetes mellitus) (HCC) Hypothyroidism Chronic pain Post-op pain Bacteremia Amputated left leg (HCC) Candiduria Assessment/Plan: Beata Lema a 52 y.o.femaleadmitted to [facility] on 01/14/18with the following [...] PRBC T2DM - A1c 6.5%, controlled - 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 ENGINEER regimen: Metformin thousand milligrams twice a day, [id number] mg daily >Continue with Lantus 20 units QHS, novolog 12u postmeal, MDCF 5x per day >Continue NPH 30 units with nocturnal tube feeds + Novolog 8 units SQ qhs with nocturnal TFs - please hold NPH if tube feed are held and give at the start of tube feed 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 - TSH 2.1 this admission >levothyroxine increased 200 mcg on 01/26 >She will need repeat thyroid function tests in 6-8 weeks Major depressive disorder, recurrent, moderate CLAUDIA Adjustment disorder with mixed anxiety and depressed mood > continue 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 ENGINEER Wellbutrin and buspar, started on nortriptyline this admission Nutrition - 01/24 albumin 2.4, Prealbumin 11.0, recheck 01/31 -Pt is currently meeting caloric but not protein needs >Current diet: diabeticand nocturnal tube feeds - Nutren 1.5 to 30ml/hr x 6 hrs + 2 pkt Prosource daily > [employer] consult and d/c tube feeds once eating to meet needs > weekly prealbumin and albumin > Will hold TF is pt able to consume 2 Prosource daily by mouth with continued Boost GC x 2 and menu food HLD: 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 Insomnia: nortriptyline 50mg qhs DVT Prophylaxis:Xarelto, [...] Stool Occurrence: 1 Oral Diet Order: Diabetic 5598-0318 Kcal/day (60 g Carb/meal, 30 g Carb/HS [...] 20,000 Units/ sodium bicarbonate 650 mg(#) PRN (Portable Track Line Marker from Rx) Physical Exam VS: BP 107/55 [...] & Labs Reviewed. Ravi Pride DO Pager [phone] * Serenity Concepcion MD - 01/27/2018 8:53 [...] hemipelvectomy DM2 with stress hyperglycemia HgbA1C 6.5%. 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 ENGINEER meds: Metformin + Jardiance / PCP in [place], [place] Past Medical History: Diagnosis Date Anxiety [...] 20,000 Units/ sodium bicarbonate 650 mg(#) PRN (Portable Track Line Marker from Rx) Objective Vital Signs: Last Filed [...] an A1c level <7%. Serenity Concepcion MD [phone] * Ruth Garcia - 01/27/2018 7:29 PM [...] 20,000 Units/ sodium bicarbonate 650 mg(#) PRN (Portable Track Line Marker from Rx) Physical Examination Vital Signs: Last [...] with questions or issues Adrienne Zarate MD [phone] * Ruth Allen MD - 01/27/2018 12:44 [...] Admission Date: 01/14/2018 LOS: 12 days Insurance: [facility] Principal Problem: Left hip amputation status Active Problems: Chondrosarcoma (HCC) Acute blood loss as cause of postoperative anemia Depression Anxiety DM (diabetes mellitus) (HCC) Hypothyroidism Chronic pain Post-op pain Bacteremia Amputated left leg (HCC) Candiduria Assessment/Plan: Beata Lema a 52 y.o.femaleadmitted to [facility] on 01/14/18with the following [...] labs T2DM - A1c 6.5%, controlled - 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 ENGINEER regimen: Metformin thousand milligrams twice a day, [id number] mg daily >Continue with Lantus 20 units QHS, novolog 12u postmeal, MDCF 5x per day >Continue NPH 30 units with nocturnal tube feeds + Novolog 8 units SQ qhs with nocturnal TFs - please hold NPH if tube feed are held and give at the start of tube feed 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 - TSH 2.1 this admission >levothyroxine increased 200 mcg on 01/26 >She will need repeat thyroid function tests in 6-8 weeks Major depressive disorder, recurrent, moderate CLAUDIA Adjustment disorder with mixed anxiety and depressed mood > continue 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 ENGINEER Wellbutrin and buspar, started on nortriptyline this admission Nutrition - 01/24 albumin 2.4, Prealbumin 11.0, recheck 01/31 -Pt is currently meeting caloric but not protein needs >Current diet: diabeticand nocturnal tube feeds - Nutren 1.5 to 30ml/hr x 6 hrs + 2 pkt Prosource daily > [employer] consult and d/c tube feeds once eating to meet needs > weekly prealbumin and albumin HLD: 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 Insomnia: nortriptyline 50mg qhs DVT Prophylaxis:Xarelto, [...] Stool Occurrence: 1 Oral Diet Order: Diabetic 7959-8061 Kcal/day (60 g Carb/meal, 30 g Carb/HS [...] 20,000 Units/ sodium bicarbonate 650 mg(#) PRN (Portable Track Line Marker from Rx) Physical Exam VS: BP 148/54 [...] & Labs Reviewed. Ravi Pride DO Pager [phone] * Jennifer Diaz RN - 01/27/2018 10:35 [...] BSN, CWON Wound/Ostomy Nursing Consult Service Office: [phone] Pager: [phone] Wound/Ostomy Team Pager (After Hours/Weekends): [phone] * Anita Bernal, PHARMD - 01/26/2018 10:16 [...] CDT Activity Therapy Patient met with a sales account representative from [facility], and other patients, to learn about [...] Induration;Macerated 01/26/2018 12:00 PM Wound Site Closure [place] 01/26/2018 12:00 PM Wound Drainage Amount Scant [...] 01/07/2018 9:55 PM Wound Base Assessment Moist;[place] 01/26/2018 12:00 PM Surrounding Skin Assessment Intact;Induration;Erythema [...] -125 mm/Hg;VAC sponge - black;VAC tx: Continuous, ;[employer] 01/26/2018 12:00 PM Wound Length (cm) [...] Assessment? Except 01/24/2018 4:00 AM Stoma Assessment [place];Red 01/26/2018 2:30 PM Drainage Description Brown 01/26/2018 [...] Garsia RN, BSN Wound /Ostomy Team Pager [phone] After Hours Wound/Ostomy team pager [phone] * Leia Zimmerman - 01/26/2018 11:16 AM CDT CLINICAL NUTRITION Clinical Nutrition Follow-Up Summary Nutrition Assessment of Patient: Malnutrition Assessment: Adequately nourished prior to admission Current Oral Intake: Adequate Estimated Calorie Needs: 1660 (30kcal/kg of dw 55kg) Estimated Protein Needs: 100-120 (1.5-2.2g/kg of dw 55kg) Oral Diet Order: Diabetic 3540-3710 Kcal/day (60 g Carb/meal, 30 g Carb/HS snack ) Oral Supplement: Boost Glucose Control, BID Current EN Order: Nutren 1.5 @ 75ml/hr x's 6 hrs from 5640-8592, 3 ProSource/ day (At goal will provide: [...] follow, call with questions Adrienne Zarate MD [phone] * Ruth Allen MD - 01/26/2018 9:37 [...] Admission Date: 01/14/2018 LOS: 12 days Insurance: [facility] Principal Problem: Left hip amputation status Active Problems: Chondrosarcoma (HCC) Acute blood loss as cause of postoperative anemia Depression Anxiety DM (diabetes mellitus) (HCC) Hypothyroidism Chronic pain Post-op pain Bacteremia Amputated left leg (HCC) Candiduria Assessment/Plan: Beata Lema a 52 y.o.femaleadmitted to [facility] on 01/[facility]18with the following [...] labs T2DM - A1c 6.5%, controlled - 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 ENGINEER regimen: Metformin thousand milligrams twice a day, [id number] mg daily >Continue with Lantus 20 units QHS, novolog 12u postmeal, MDCF 5x per day >Continue NPH 30 units with nocturnal tube feeds + Novolog 8 units SQ qhs with nocturnal TFs - please hold NPH if tube feed are held and give at the start of tube feed 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 - TSH 2.1 this admission >levothyroxine increased 200 mcg on 01/26 >She will need repeat thyroid function tests in 6-8 weeks Major depressive disorder, recurrent, moderate CLAUDIA Adjustment disorder with mixed anxiety and depressed mood > continue 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 ENGINEER Wellbutrin and buspar Nutrition - 01/17 albumin 2.6, Prealbumin 13.0 - 01/24 albumin 2.4, Prealbumin 11.0, recheck 01/31 -Pt is currently meeting caloric but not protein needs >Current diet: diabeticand nocturnal tube feeds - Nutren 1.5 to 30ml/hr x 6 hrs + 2 pkt Prosource daily > [employer] consult and d/c tube feeds once eating to meet needs > weekly prealbumin and albumin HLD: 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 Insomnia: nortriptyline 25mg qhs DVT Prophylaxis:Xarelto, [...] Stool Occurrence: 1 Oral Diet Order: Diabetic 2625-1852 Kcal/day (60 g Carb/meal, 30 g Carb/HS [...] 20,000 Units/ sodium bicarbonate 650 mg(#) PRN (Portable Track Line Marker from Rx) Physical Exam VS: BP 113/59 [...] & Labs Reviewed. Ravi Pride DO Pager [phone] * Serenity Concepcion MD - 01/26/2018 8:28 [...] hemipelvectomy DM2 with stress hyperglycemia HgbA1C 6.5%. 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 ENGINEER meds: Metformin + Jardiance / PCP in [place], [place] Past Medical History: Diagnosis Date Anxiety [...] 20,000 Units/ sodium bicarbonate 650 mg(#) PRN (Portable Track Line Marker from Rx) Objective Vital Signs: Last Filed [...] an A1c level <7%. Serenity Concepcion MD [phone] * Cherri Kinney, PhD - 01/25/2018 3:20 PM CDT [id number] Pt was seen for mood screening with [...] to establish these services. Valerie Young M.A. Pipe Line Inspector Pager [phone] ATTESTATION: I discussed this session and pt's care with the automotive internet sales consultant and agree with her note and recs as amended (in blue) above. We will continue to follow prn until [facility] d/c. Warren Kinney, PhD, ABPP * Indy [...] 20,000 Units/ sodium bicarbonate 650 mg(#) PRN (Portable Track Line Marker from Rx) Physical Examination Vital Signs: Last [...] Admission Date: 01/14/2018 LOS: 11 days Insurance: [facility] Principal Problem: Left hip amputation status Active Problems: Chondrosarcoma (HCC) Acute blood loss as cause of postoperative anemia Depression Anxiety DM (diabetes mellitus) (HCC) Hypothyroidism Chronic pain Post-op pain Bacteremia Amputated left leg (HCC) Candiduria Assessment/Plan: Beata Lema a 52 y.o.femaleadmitted to [facility] on 01/14/18with the following [...] pRBCs T2DM - A1c 6.5%, controlled - 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 ENGINEER regimen: Metformin thousand milligrams twice a day, [id number] mg daily >Continue with Lantus 20 units QHS, novolog 12u postmeal, MDCF 5x per day >Continue NPH 30 units with nocturnal tube feeds + Novolog 8 units SQ qhs with nocturnal TFs - please hold NPH if tube feed are held and give at the start of tube feed 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 - TSH 2.1 this admission >continue 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 ENGINEER levothyroxine >She will need repeat thyroid function tests in 6-8 weeks MDD CLAUDIA Adjustment disorder with mixed anxiety and depressed mood > continue 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 ENGINEER Wellbutrin and buspar Nutrition - 01/17 albumin 2.6, Prealbumin 13.0, likely check Q7days - 01/24 albumin 2.4, Prealbumin 11.0, recheck 01/31 >Current diet: diabeticand nocturnal tube feeds - Nutren 1.5 from 2200- 0400 at 75mL/hr through [employer] protein packs per day, [id number] q4h > [employer] consult and d/c tube feeds once eating to meet needs > weekly prealbumin HLD: 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 Insomnia: nortriptyline 25mg qhs Skin:There are [...] Stool Occurrence: 1 Oral Diet Order: Diabetic 8221-3180 Kcal/day (60 g Carb/meal, 30 g Carb/HS [...] 20,000 Units/ sodium bicarbonate 650 mg(#) PRN (Portable Track Line Marker from Rx) Physical Exam VS: BP 105/56 [...] & Labs Reviewed. Ravi Pride DO Pager [phone] * Serenity Concepcion MD - 01/25/2018 9:23 [...] hemipelvectomy DM2 with stress hyperglycemia HgbA1C 6.5%. 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 meds: Metformin + Jardiance / PCP in [place], [place] Past Medical History: Diagnosis Date Anxiety [...] 20,000 Units/ sodium bicarbonate 650 mg(#) PRN (Portable Track Line Marker from Rx) Objective Vital Signs: Last Filed [...] an A1c level <7%. Serenity Concepcion MD [phone] * Darlene Garcia RN - 01/24/2018 7:00 [...] 20,000 Units/ sodium bicarbonate 650 mg(#) PRN (Portable Track Line Marker from Rx) Physical Examination Vital Signs: Last [...] Assessment? Except 01/24/2018 4:00 AM Stoma Assessment Red;[place] 01/23/2018 8:46 PM Drainage Description Brown 01/23/2018 [...] Garsia RN, BSN Wound /Ostomy Team Pager [phone] After Hours Wound/Ostomy team pager [phone] * Darlene Garcia, SANJAY - 01/24/2018 3:40 [...] of dw 55kg) Oral Diet Order: Diabetic 0686-3581 Kcal/day (60 g Carb/meal, 30 g Carb/HS snack ) Oral Supplement: Boost Glucose Control, BID 5-day PO intake Average: Intake (calories) Daily Average : 1548 kilocalories (93% of low end estimated needs) Intake (protein) Daily Average : 72 grams (72% of low range estimated needs) Current EN Order: Nutren 1.5 @ 75ml/hr x's 6 hrs from 0968-0841, 3 ProSource/ day (At goal will provide: [...] page please page plastic surgery "Gold" team [phone] (6AM-6PM M-F) On-call resident all other times or consult pager [phone] * Ruth Allen MD - 01/24/2018 10:58 [...] Admission Date: 01/14/2018 LOS: 10 days Insurance: [facility] Principal Problem: Left hip amputation status Active Problems: Chondrosarcoma (HCC) Acute blood loss as cause of postoperative anemia Depression Anxiety DM (diabetes mellitus) (HCC) Hypothyroidism Chronic pain Post-op pain Bacteremia Amputated left leg (HCC) Candiduria Assessment/Plan: Beata Lema a 52 y.o.femalead[facility] on [facility]18with the following [...] pRBCs T2DM - A1c 6.5%, controlled - 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 regimen: Metformin thousand milligrams twice a day, [id number] mg daily >Continue with Lantus 22 units QHS, novolog 8u postmeal, MDCF 5x per day >Continue NPH 30 units with nocturnal tube feeds - please hold NPH if tube feed are held and give at the start of tube feed 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 - TSH 2.1 this admission >continue 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 levothyroxine >She will need repeat thyroid function tests in 6-8 weeks MDD CLAUDIA Adjustment disorder with mixed anxiety and depressed mood > continue 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 Wellbutrin and buspar Nutrition - 01/17 albumin 2.6, Prealbumin 13.0, likely check Q7days - 01/24 albumin 2.4, Prealbumin 11.0, recheck 01/31 >Current diet: diabeticand nocturnal tube feeds - Nutren 1.5 from 2200- 0400 at 75mL/hr through [employer] protein packs per day, [id number] q4h > [employer] consult and d/c tube feeds once eating to meet needs > weekly prealbumin HLD: 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 Insomnia: nortriptyline 25mg qhs Skin:There are [...] milliliters (01/24/18 0800) Oral Diet Order: Diabetic 7096-4330 Kcal/day (60 g Carb/meal, 30 g Carb/HS [...] 20,000 Units/ sodium bicarbonate 650 mg(#) PRN (Portable Track Line Marker from Rx) Physical Exam VS: BP 115/54 [...] & Labs Reviewed. Ravi Pride DO Pager [phone] * Serenity Concepcion MD - 01/24/2018 8:38 [...] to me this morning since transfer from [facility] to [facility]. Chart reviewed / old records reviewed / labs reviewed / imaging reviewed. I have summarized pertinent information in this daily note. S/p left hemipelvectomy DM2 with stress hyperglycemia HgbA1C 6.5%. 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 meds: Metformin + Jardiance / PCP in [place], [place] On enteral feeds -- Nutren 1.5 [...] 20,000 Units/ sodium bicarbonate 650 mg(#) PRN (Portable Track Line Marker from Rx) Objective Vital Signs: Last Filed [...] on 01/21/2018 4:19 PM Serenity Concepcion MD [phone] * Madhuri Mcelroy RN - 01/23/2018 7:31 PM CDT Pt reports 3 bladder spasms today. One nursing staff noted w/air passing and small incontinence. * Ruth Garcia - 01/23/2018 2:50 PM CDT Activity Therapy Patient attended musical performance provided by a [email or web address] vendor, this activity therapist supervised the event. [...] Dr. Ernesto Sibley Endocrine Fellow Pager # [phone] 01/23/2018 * Ruth Allen MD - 01/23/2018 [...] Admission Date: 01/14/2018 LOS: 9 days Insurance: [facility] Principal Problem: Left hip amputation status Active Problems: Chondrosarcoma (HCC) Acute blood loss as cause of postoperative anemia Depression Anxiety DM (diabetes mellitus) (HCC) Hypothyroidism Chronic pain Post-op pain Bacteremia Amputated left leg (HCC) Candiduria Assessment/Plan: Beata Lema a 52 y.o.femaleadmitted to [facility] on 01[facility]18with the following [...] pRBCs T2DM - A1c 6.5%, controlled - 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 regimen: Metformin thousand milligrams twice a day, mg daily >Continue with Lantus 22 units QHS, novolog 8u postmeal, MDCF 5x per day >Continue NPH 30 units with nocturnal tube feeds - please hold NPH if tube feed are held and give at the start of tube feed 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 - TSH 2.1 this admission >continue 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 levothyroxine >She will need repeat thyroid function tests in 6-8 weeks MDD CLAUDIA Adjustment disorder with mixed anxiety and depressed mood > continue 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 Wellbutrin and buspar Nutrition - 01/17 albumin 2.6, Prealbumin 13.0, likely check Q7days >Current diet: diabeticand nocturnal tube feeds - Nutren 1.5 from 2200- 0400 at 75mL/hr through [employer] protein packs per day, [id number] q4h > [employer] consult and d/c tube feeds once eating to meet needs > weekly prealbumin HLD: 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 Insomnia: nortriptyline 25mg qhs Skin:There are [...] Stool Occurrence: 1 Oral Diet Order: Diabetic 7426-3949 Kcal/day (60 g Carb/meal, 30 g Carb/HS [...] 20,000 Units/ sodium bicarbonate 650 mg(#) PRN (Portable Track Line Marker from Rx) Physical Exam VS: BP 127/64 [...] & Labs Reviewed. Ravi Pride DO Pager [phone] * Kalie Sibley MBBS - 01/22/2018 12:52 [...] Dr. Ernesto Sibley Endocrine Fellow Pager # [phone] 01/22/2018 * Ruth Allen MD - 01/22/2018 [...] Admission Date: 01/14/2018 LOS: 8 days Insurance: [facility] Principal Problem: Left hip amputation status Active Problems: Chondrosarcoma (HCC) Acute blood loss as cause of postoperative anemia Depression Anxiety DM (diabetes mellitus) (HCC) Hypothyroidism Chronic pain Post-op pain Bacteremia Amputated left leg (HCC) Candiduria Assessment/Plan: Beata Lema a 52 y.o.femaleadmitted to [facility] on 01/14/18with the following [...] pRBCs T2DM - A1c 6.5%, controlled - [employer] regimen: Metformin thousand milligrams twice a day, [id number] mg daily >Continue with Lantus 22 units QHS, novolog 8u postmeal, MDCF 5x per day >Continue NPH 30 units with nocturnal tube feeds - please hold NPH if tube feed are held and give at the start of tube feed 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 - TSH 2.1 this admission >continue [employer] levothyroxine >She will need repeat thyroid function tests in 6-8 weeks MDD CLAUDIA Adjustment disorder with mixed anxiety and depressed mood > continue [employer] Wellbutrin and buspar Nutrition - 01/17 albumin 2.6, Prealbumin 13.0, likely check Q7days >Current diet: diabeticand nocturnal tube feeds - Nutren 1.5 from 2200- 0400 at 75mL/hr through [employer] protein packs per day, [id number] q4h > [employer] consult and d/c tube feeds once eating to meet needs > weekly prealbumin HLD: 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 Insomnia: nortriptyline 25mg qhs Skin:There are [...] Stool Occurrence: 1 Oral Diet Order: Diabetic 3247-1858 Kcal/day (60 g Carb/meal, 30 g Carb/HS [...] Low-High Color,UA YELLOW Turbidity,UA CLEAR CLEAR-CLEAR Specific [place]-Urine 1.018 1.003 - 1.035 pH,UA 6.0 5.0 [...] 20,000 Units/ sodium bicarbonate 650 mg(#) PRN (Portable Track Line Marker from Rx) Physical Exam VS: BP 114/62 [...] & Labs Reviewed. Ravi Pride DO Pager [phone] * Nani Lynch DO - 01/21/2018 9:33 [...] Wednesday am. Please page on- call ID [phone] with new concerns this weekend. Nani Lynch DO Division of Infectious Diseases Pager [phone] Interval History tmax 38.1, still w/intermittent sweats [...] 20,000 Units/ sodium bicarbonate 650 mg(#) PRN (Portable Track Line Marker from Rx) Physical Examination Vital Signs: Last [...] Pertinent radiology reviewed Nani Lynch DO Pager [phone] ID * Herbert Perez, RN - 01/21/2018 [...] Induration;Edema 01/21/2018 12:15 PM Wound Site Closure [place];Sutures 01/21/2018 12:15 PM Wound Drainage Amount Copious [...] amounts of drainage. During the day staff assistant is changing the vac canister about every [...] Garsia RN, BSN Wound /Ostomy Team Pager [phone] After Hours Wound/Ostomy team pager [phone] * Va Blair MD - 01/21/2018 2:09 PM CDT Formatting of this note may be different from the original. Endocrinology Hospital Follow Up Visit Today's Date: 01/21/2018 Admission Date: 01/14/2018 Assessment: 1. DM type 2 with stress hyperglycemia 2. Hypoglycemia A1c 6.5 , controlled [employer] regimen: Metformin thousand milligrams twice a day, jardiance 25 mg daily Hypoglycemic episodes on this regimen: None and not checking blood sugars at home Follows up with for diabetes management: Primary care physician at [facility], [place] Diabetic-complications assessment: Retinopathy: None Peripheral neuropathy: Yes on treatment Autonomic neuropathy: None Nephropathy: None Macrovascular complications: None Risk factor assessment: Last lipid profile - None on file On ACEi/ARB: Yes On Statin: yes 3. Hypothyroidism 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 TSH 2.1 [...] Units/ sodium bicarbonate 650 mg(#) PRN ( Portable Track Line Marker from Rx) Physical Examination Vital Signs: Last [...] 01:40 PM No results found for: FREET3, [id number], THYBINDGLB Va Blair MD p 0410 * [...] Admission Date: 01/14/2018 LOS: 7 days Insurance: [facility] Principal Problem: Left hip amputation status Active Problems: Chondrosarcoma (HCC) Acute blood loss as cause of postoperative anemia Depression Anxiety DM (diabetes mellitus) (HCC) Hypothyroidism Chronic pain Post-op pain Bacteremia Amputated left leg (HCC) Candiduria Assessment/Plan: Beata Lema a 52 y.o.femaleadmitted to [facility] on 01/14/18with the following [...] pRBCs T2DM - A1c 6.5%, controlled - [employer] regimen: Metformin thousand milligrams twice a day, [id number] mg daily >Continue with Lantus 22 units QHS, novolog 8u postmeal, MDCF 5x per day >Continue NPH 30 units with nocturnal tube feeds - please hold NPH if tube feed are held and give at the start of tube feed 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 - TSH 2.1 this admission >continue [employer] levothyroxine >She will need repeat thyroid function tests in 6-8 weeks MDD CLAUDIA Adjustment disorder with mixed anxiety and depressed mood > continue [employer] Wellbutrin and buspar Nutrition - 01/17 albumin 2.6, Prealbumin 13.0, likely check Q7days >Current diet: diabeticand nocturnal tube feeds - Nutren 1.5 from 2200- 0400 at 75mL/hr through [employer] protein packs per day, [id number] q4h > [employer] consult and d/c tube feeds once eating to meet needs > weekly prealbumin HLD: 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 Insomnia: nortriptyline 25mg qhs Skin:There are [...] Stool Occurrence: 1 Oral Diet Order: Diabetic 0888-5124 Kcal/day (60 g Carb/meal, 30 g Carb/HS [...] Units/ sodium bicarbonate 650 mg(#) PRN ( Portable Track Line Marker from Rx) Physical Exam VS: BP 114/57 [...] & Labs Reviewed. Ravi Pride DO Pager [phone] * Skyler Enriquez RN - 01/21/2018 10:09 [...] Admission Date: 01/14/2018 LOS: 5 days Insurance: [facility] Principal Problem: Left hip amputation status Active Problems: Chondrosarcoma (HCC) Acute blood loss as cause of postoperative anemia Depression Anxiety DM (diabetes mellitus) (HCC) Hypothyroidism Chronic pain Post-op pain Bacteremia Amputated left leg (HCC) Candiduria Assessment/Plan: Beata Lema a 52 y.o.femaleadmitted to [facility] on 01/14/18with the following [...] pRBCs T2DM - A1c 6.5%, controlled - [employer] regimen: Metformin thousand milligrams twice a day, [id number] mg daily >Continue with Lantus 22 units QHS, novolog 8u postmeal, MDCF 5x per day >Continue NPH 30 units with nocturnal tube feeds - please hold NPH if tube feed are held and give at the start of tube feed 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 - TSH 2.1 this admission >continue [employer] levothyroxine >She will need repeat thyroid function tests in 6-8 weeks MDD CLAUDIA Adjustment disorder with mixed anxiety and depressed mood > continue [employer] Wellbutrin and buspar Nutrition - 01/17 albumin 2.6, Prealbumin 13.0, likely check Q7days >Current diet: diabeticand nocturnal tube feeds - Nutren 1.5 from 2200- 0400 at 75mL/hr through [employer] protein packs per day, [id number] q4h > [employer] consult and d/c tube feeds once eating to meet needs > weekly prealbumin HLD: 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 Insomnia: nortriptyline 25mg qhs Skin:There are [...] Stool Occurrence: 1 Oral Diet Order: Diabetic 2380-6174 Kcal/day (60 g Carb/meal, 30 g Carb/HS [...] Units/ sodium bicarbonate 650 mg(#) PRN ( Portable Track Line Marker from Rx) Physical Exam VS: BP 107/56 [...] & Labs Reviewed. Ravi Pride DO Pager [phone] * Va Blair MD - 01/20/2018 1:50 PM CDT Formatting of this note may be different from the original. Endocrinology Hospital Follow Up Visit Today's Date: 01/20/2018 Admission Date: 01/14/2018 Assessment: 1. DM type 2 with stress hyperglycemia A1c 6.5 , controlled [employer] regimen: Metformin thousand milligrams twice a day, jardiance 25 mg daily Hypoglycemic episodes on this regimen: None and not checking blood sugars at home Follows up with for diabetes management: Primary care physician at [facility], [place] Diabetic-complications assessment: Retinopathy: None Peripheral neuropathy: Yes on treatment Autonomic neuropathy: None Nephropathy: None Macrovascular complications: None Risk factor assessment: Last lipid profile - None on file On ACEi/ARB: Yes On Statin: yes 2. Hypothyroidism 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 TSH 2.1 [...] Units/ sodium bicarbonate 650 mg(#) PRN ( Portable Track Line Marker from Rx) Physical Examination Vital Signs: Last [...] 01:40 PM No results found for: FREET3, [id number], THYBINDGLB Va Blair MD p 0410 * Cherri Kinney, PhD - 01/20/2018 12:36 PM CDT [id number] Pt was seen for cog screening, with [...] pt reported mood to be "okay." The Duvall Cognitive Assessment (MoCA) was administered and indicated [...] Ph.D. Neurorehabilitation Psychology Postdoctoral Fellow Pager #: [phone] ATTESTATION: I discussed this session and pt's [...] follow, call with questions Adrienne Zarate MD [phone] * Nneka Garsia RN - 01/19/2018 3:27 [...] Intact 01/17/2018 10:00 AM Wound Site Closure [place] 01/17/2018 10:00 AM Wound Drainage Amount None [...] Yes 01/06/2018 8:00 PM Wound Base Assessment Dry;[place];Red 01/19/2018 10:00 AM Surrounding Skin Assessment Intact [...] Assessment? Yes 01/10/2018 12:15 PM Stoma Assessment Red;[place] 01/19/2018 10:00 AM Drainage Description Brown 01/19/2018 [...] incision still dry and intact. Concerns about half-way plan of this wound and treatment. Will [...] Garsia RN, BSN Wound /Ostomy Team Pager [phone] After Hours Wound/Ostomy team pager [phone] * Leia Zimmerman - 01/19/2018 2:35 PM CDT CLINICAL NUTRITION Clinical Nutrition Follow-Up Summary Nutrition Assessment of Patient: Malnutrition Assessment: Adequately nourished prior to admission Current Oral Intake: Marginally Adequate Estimated Calorie Needs: 1660 (30kcal/kg of dw 55kg) Estimated Protein Needs: 100-120 (1.5-2.2g/kg of dw 55kg) Oral Diet Order: Diabetic 7467-1254 Kcal/day (60 g Carb/meal, 30 g Carb/HS snack ) Current EN Order: Nutren 1.5 @ 75ml/hr x's 6 hrs from 3109-7663, 3 ProSource/ day (At goal will provide: [...] of protein needs) 52 yof admitted to [facility] 01/14/18 s/p L hemipelvectomy 12/14 [...] Within 5 Days Leia Zimmerman, KAYA, LD *[id number] * Nani Lynch, - 01/19/2018 12:51 PM [...] Lynch DO Division of Infectious Diseases Pager [phone] Interval History Afebrile, vitals stable. No fever, [...] Units/ sodium bicarbonate 650 mg(#) PRN ( Portable Track Line Marker from Rx) Physical Examination Vital Signs: Last [...] Pertinent radiology reviewed Nani Lynch DO Pager [phone] ID * Ruth Allen MD - 01/19/2018 [...] prealbumin next week, f/u leslie ct with [employer]. Per patient and therapies, lots of anxiety during therapy time. Has wellbutrin and buspar, could titrate nortriptyline and/or consult Psychiatry during her rehab stay. Per d/w rehab team at conference, patient making progress towards goal of min- mod assist with manual wheelchair, slideboard, ramp. Tentative discharge date . Progress this week, initiated slideboard transfers with min A x2, sit to jailer/training officer // bars, total assist bowel and bladder. [...] Admission Date: 01/14/2018 LOS: 5 days Insurance: [facility] Principal Problem: Left hip amputation status Active Problems: Chondrosarcoma (HCC) Acute blood loss as cause of postoperative anemia Depression Anxiety DM (diabetes mellitus) (HCC) Hypothyroidism Chronic pain Post-op pain Bacteremia Amputated left leg (HCC) Candiduria Assessment/Plan: Beata Lema a 52 y.o.femaleadmitted to [facility] on 01[facility]18with the following [...] pRBCs T2DM - A1c 6.5%, controlled - [employer] regimen: Metformin thousand milligrams twice a day, [id number] mg daily >Continue with Lantus 22 units QHS, novolog 8u postmeal, MDCF 5x per day >Continue NPH 30 units with nocturnal tube feeds - please hold NPH if tube feed are held and give at the start of tube feed 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 - TSH 2.1 this admission >continue [employer] levothyroxine >She will need repeat thyroid function tests in 6-8 weeks MDD CLAUDIA Adjustment disorder with mixed anxiety and depressed mood > continue [employer] Wellbutrin and buspar Nutrition - 01/17 albumin 2.6, Prealbumin 13.0, likely check Q7days >Current diet: diabeticand nocturnal tube feeds - Nutren 1.5 from 2200- 0400 at 75mL/hr through [employer] protein packs per day, [id number] q4h > [employer] consult and d/c tube feeds once eating to meet needs > weekly prealbumin HLD: 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 Insomnia: nortriptyline 25mg qhs Skin:There are [...] Stool Occurrence: 1 Oral Diet Order: Diabetic 2192-6495 Kcal/day (60 g Carb/meal, 30 g Carb/HS [...] Units/ sodium bicarbonate 650 mg(#) PRN ( Portable Track Line Marker from Rx) Physical Exam VS: BP 112/54 [...] & Labs Reviewed. Ravi Pride DO Pager [phone] * Ivan Barrera RN - 01/19/2018 7:48 [...] Lynch DO Division of Infectious Diseases Pager [phone] Interval History Afebrile, vitals stable. No fever, [...] Units/ sodium bicarbonate 650 mg(#) PRN ( Portable Track Line Marker from Rx) Physical Examination Vital Signs: Last [...] Pertinent radiology reviewed Nani Lynch DO Pager [phone] ID * Ruth Allen MD - 01/18/2018 [...] Admission Date: 01/14/2018 LOS: 4 days Insurance: [facility] Principal Problem: Left hip amputation status Active Problems: Chondrosarcoma (HCC) Acute blood loss as cause of postoperative anemia Depression Anxiety DM (diabetes mellitus) (HCC) Hypothyroidism Chronic pain Post-op pain Bacteremia Amputated left leg (HCC) Candiduria Assessment/Plan: Beata Lema a 52 y.o.femaleadmitted to [facility] on 01/14/18with the following [...] pRBCs T2DM - A1c 6.5%, controlled - [employer] regimen: Metformin thousand milligrams twice a day, [id number] mg daily >Continue with Lantus 22 units QHS, novolog 8u postmeal, MDCF 5x per day >Continue NPH 30 units with nocturnal tube feeds - please hold NPH if tube feed are held and give at the start of tube feed 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 - TSH 2.1 this admission >continue [employer] levothyroxine >She will need repeat thyroid function tests in 6-8 weeks MDD CLAUDIA Adjustment disorder with mixed anxiety and depressed mood > continue [employer] Wellbutrin and buspar Nutrition - 01/17 albumin 2.6, Prealbumin 13.0, likely check Q7days >Current diet: diabeticand nocturnal tube feeds - Nutren 1.5 from 2200- 0400 at 75mL/hr through [employer] protein packs per day, [id number] q4h > [employer] consult and d/c tube feeds once eating to meet needs > weekly prealbumin HLD: 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 Insomnia: nortriptyline 25mg qhs Skin:There are [...] Stool Occurrence: 1 Oral Diet Order: Diabetic 9439-3854 Kcal/day (60 g Carb/meal, 30 g Carb/HS [...] Units/ sodium bicarbonate 650 mg(#) PRN ( Portable Track Line Marker from Rx) Physical Exam VS: BP 112/62 [...] & Labs Reviewed. Ravi Pride DO Pager [phone] * Nani Lynch DO - 01/17/2018 2:21 [...] Lynch, DO Division of Infectious Diseases Pager [phone] Interval History Afebrile, vitals stable. Feels "ok," [...] Units/ sodium bicarbonate 650 mg(#) PRN ( Portable Track Line Marker from Rx) Physical Examination Vital Signs: Last [...] Pertinent radiology reviewed Chari Pedro DO Pager [phone] ID fellow * Leia Zimmerman - 01/17/2018 2:20 PM CDT CLINICAL NUTRITION Clinical Nutrition Follow-Up Summary Nutrition Assessment of Patient: Malnutrition Assessment: Adequately nourished prior to admission Current Oral Intake: Adequate Estimated Calorie Needs: 1660 (30kcal/kg of dw 55kg) Estimated Protein Needs: 100-120 (1.5-2.2g/kg of dw 55kg) Oral Diet Order: Diabetic 2951-3006 Kcal/day (60 g Carb/meal, 30 g Carb/HS snack ) 3-day EN avg: Intake (calories) Daily Average : 869 kilocalories (100% of goal to meet 50% of needs) Intake (protein) Daily Average : 56 grams (74% of goal to meet 63-76% of needs)) Current EN Order: Nutren 1.5 @ 75ml/hr x's 6 hrs from 5992-5401, 3 ProSource/ day (At goal will provide: [...] Leia Zimmerman RD, LD *[id number] * Va Blair MD - 01/17/2018 11:30 AM CDT Formatting of this note may be different from the original. Endocrinology Hospital Follow Up Visit Today's Date: 01/17/2018 Admission Date: 01/14/2018 Assessment: 1. DM type 2 with stress hyperglycemia A1c 6.5 , controlled [employer] regimen: Metformin thousand milligrams twice a day, jardiance 25 mg daily Hypoglycemic episodes on this regimen: None and not checking blood sugars at home Follows up with for diabetes management: Primary care physician at [facility], [place] Diabetic-complications assessment: Retinopathy: None Peripheral neuropathy: Yes on treatment Autonomic neuropathy: None Nephropathy: None Macrovascular complications: None Risk factor assessment: Last lipid profile - None on file On ACEi/ARB: Yes On Statin: yes 2. Hypothyroidism 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 TSH 2.1 [...] Units/ sodium bicarbonate 650 mg(#) PRN ( Portable Track Line Marker from Rx) Physical Examination Vital Signs: Last [...] 01:40 PM No results found for: FREET3, [id number], THYBINDGLB Va Blair MD p 0410 * [...] follow, call with questions Adrienne Zarate MD [id number] * Ruth Allen MD - 01/17/2018 7:10 [...] Admission Date: 01/14/2018 LOS: 3 days Insurance: [facility] Principal Problem: Left hip amputation status Active Problems: Chondrosarcoma (HCC) Acute blood loss as cause of postoperative anemia Depression Anxiety DM (diabetes mellitus) (HCC) Hypothyroidism Chronic pain Post-op pain Bacteremia Amputated left leg (HCC) Candiduria Assessment/Plan: Beata Lema a 52 y.o.femalead[facility]18with the following [...] pRBCs T2DM - A1c 6.5%, controlled - 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 regimen: Metformin thousand milligrams twice a day, [id number] mg daily >Continue with Lantus 22 units QHS, novolog 8u postmeal, MDCF 5x per day >Continue NPH 30 units with nocturnal tube feeds - please hold NPH if tube feed are held and give at the start of tube feed 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 Bowel:ostomy Bladder:melhcor Nutrition:Current diet: diabeticand nocturnal tube feeds - Nutren 1.5 from [id number] at 75mL/hr through Corpakwith3 protein packs per day, H2O 30mL q4h - Vp [employer] consult and d/c tube feeds once eating [...] Units/ sodium bicarbonate 650 mg(#) PRN ( Portable Track Line Marker from Rx) Physical Exam VS: BP 116/58 [...] & Labs Reviewed. Krunal Peraza MD Pager [phone] * Darlene Garcia RN - 01/16/2018 6:00 [...] follow, call with questions Adrienne Zarate MD [id number] * Darlene Garcia RN - 01/16/2018 4:13 [...] a 52 y.o. female admitted to [facility] on 01/14/18 with the [...] ramp access, and remove home obstacles. 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 Bowel: ostomy Bladder: melchor Nutrition: Current diet: diabetic and nocturnal tube feeds - Nutren 1.5 [id number] at 75mL/hr through [employer]ak with 3 protein [...] Units/ sodium bicarbonate 650 mg(#) PRN ( Portable Track Line Marker from Rx) Objective Vital Signs: Last Filed [...] with stress hyperglycemia A1c 6.5 , controlled FACILITIES PLANT ENGINEER regimen: Metformin thousand milligrams twice a day, jardiance 25 mg daily Hypoglycemic episodes on this regimen: None and not checking blood sugars at home Follows up with for diabetes management: Primary care physician at [facility], [place] Diabetic-complications assessment: Retinopathy: None Peripheral neuropathy: Yes on treatment Autonomic neuropathy: None Nephropathy: None Macrovascular complications: None Risk factor assessment: Last lipid profile - None on file On ACEi/ARB: Yes On Statin: yes 2. Hypothyroidism 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 TSH 2.1 [...] Units/ sodium bicarbonate 650 mg(#) PRN ( Portable Track Line Marker from Rx) Physical Examination Vital Signs: Last [...] 01:40 PM No results found for: FREET3, [id number], THYBINDGLB Linus Pisano MD p 1710 * Darlene Garcia, RN - 01/15/2018 3:00 [...] ASSESSMENT EVALUATION SUMMARY Cognitive-communication evaluation complete utilizing [facility]. Cognitive-communication abilities noted to be WNL. Mild slowed processing noted , though this was determined to be due to lethargy secondary to medications ( oxycodone and gabapentin). 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 Pt lives with her family and was [...] Family Receives Help From: None Needed Vocational: [employer] Worker Employment Psychosocial Status: Willing and Cooperative to [...] a 52 y.o. female admitted to [facility] on 01/14/18 with the [...] ramp access, and remove home obstacles. 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 Bowel: ostomy Bladder: melchor Nutrition: Current diet: diabetic and nocturnal tube feeds - Nutren 1.5 [id number] at 75mL/hr through [employer] with 3 protein [...] Units/ sodium bicarbonate 650 mg(#) PRN ( Portable Track Line Marker from Rx) Objective Vital Signs: Last Filed [...] 52 y.o. female. : 1965 MRN# : [id number] Insurance: Commercial Date of Admission: 01/14/2018 Rehabilitation [...] the intensity of therapy available at the [facility]. The patient can participate in and can fully benefit from the services offered in the inpatient rehabilitation facility setting including 24 hour rehabilitation nursing, daily oversight from the Area Secretary, and complex interdisciplinary rehab as noted below. 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 Bowel: ostomy Bladder: melchor Nutrition: Current diet: diabetic and nocturnal tube feeds - Nutren 1.5 [id number] at 75mL/hr through [employer] with 3 protein [...] ramp access, and remove home obstacles. [place] of Care: Initiate interdisciplinary rehabilitation to improve [...] 52 y.o. female. : 1965 MRN# : [id number] Primary Insurance: [facility] Secondary Insurance: Tertiary Insurance: Financial Class: Commercial Date of Admission: 01/14/18 Precautions: Fall Weight bearing Precautions: NWB LLE Active Problems Active Problems: Chondrosarcoma (HCC) Acute blood loss as cause of postoperative anemia Depression Anxiety DM (diabetes mellitus) (HCC) Hypothyroidism Post-op pain Bacteremia Amputated left leg (HCC) Candiduria Assessment & Plan Beata Kaiser is a 52 y.o. female admitted to [facility] on 01/14/18 with the [...] ramp access, and remove home obstacles. [place] of Care: Initiate interdisciplinary rehabilitation to improve [...] labs T2DM - A1c 6.5%, controlled - FACILITIES PLANT ENGINEER regimen: Metformin thousand milligrams twice a day, jardiance 25 mg daily > Continue with Lantus 22 units QHS, novolog 8u postmeal, MDCF 5x per day > Continue NPH 30 units with nocturnal tube feeds - please hold NPH if tube feed are held and give at the start of tube feed 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 - TSH 2.1 this admission > continue FACILITIES PLANT ENGINEER levothyroxine > She will need repeat thyroid function tests in 6-8 weeks MDD CLAUDIA Adjustment disorder with mixed anxiety and depressed mood > continue FACILITIES PLANT ENGINEER Wellbutrin and buspar HLD: 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 Insomnia: nortriptyline 25mg qhs Skin: There are no pressure sores currently. Bowel: ostomy Bladder: melchor Nutrition: Current diet: diabetic and nocturnal tube feeds - Nutren 1.5 [id number] at 75mL/hr through [employer] with 3 protein packs per day, H2O 30mL q4h Mental Health: consult neuropsychology to provide support / counseling DVT Prophylaxis: Kely, will discharge on it History of Present Illness Hospital Course: Beata Kaiser is a 52 yo F who presented to [facility] on 12/13/17 for scheduled left hemipelvectomy [...] No Data Recorded Oral Diet Order: Diabetic 5362-8903 Kcal/day (60 g Carb/meal, 30 g Carb/HS [...] the PICC line. Placed by Hallie Nails RN([facility])/ Cayla Crowell RN BSN CRNI. Assisted [...] 20,000 Units/ sodium bicarbonate 650 mg(#) PRN (Portable Track Line Marker from Rx), saliva, synthetic PRN , sodium [...] Take 1 capsule via feeding tube PRN (Portable Track Line Marker from Rx) ( Occluded Feeding Tube). pantoprazole [...] Moist;Eschar;[place] 03/01/2018 12:00 PM Surrounding Skin Assessment [place];Dry 03/01/2018 12:00 PM Wound Site Closure [place] 03/01/2018 12:00 PM Wound Drainage Amount Small [...] Moist;Slough 03/01/2018 12:00 PM Surrounding Skin Assessment [place];Intact 03/01/2018 12:00 PM Wound Site Closure None [...] Eschar;Dry 03/01/2018 12:00 PM Surrounding Skin Assessment [place];Intact 03/01/2018 12:00 PM Wound Site Closure [place] 03/01/2018 12:00 PM Wound Drainage Amount Scant [...] Yes 02/08/2018 12:00 AM Wound Base Assessment [place];Yellow;[place];Moist;Eschar;Slough 03/01/2018 12:00 PM Surrounding Skin Assessment Edema [...] Eschar;Slough 03/01/2018 12:00 PM Surrounding Skin Assessment [place];Intact 03/01/2018 12:00 PM Wound Site Closure [place] 03/01/2018 12:00 PM Wound Drainage Amount Small [...] None 01/23/2018 8:25 PM Wound Base Assessment [place] 01/23/2018 8:25 PM Surrounding Skin Assessment Dry;Intact [...] Coordinator - Diabetes Education Nursing Clinical Excellence [facility] [email or web address] [phone] office [phone] pager * Howard Encarnacion MD - 02/27/2018 [...] - Diabetes Education Nursing Clinical Excellence [facility] [email or web address] [phone] office [phone] pager * Casey Schneider MD - 01/26/2018 [...] 20,000 Units/ sodium bicarbonate 650 mg(#) PRN (Portable Track Line Marker from Rx) Prescriptions Prior to Admission Medication [...] Take 1 capsule via feeding tube PRN (Portable Track Line Marker from Rx) ( Occluded Feeding Tube). pantoprazole [...] None 01/23/2018 8:25 PM Wound Base Assessment [place] 01/23/2018 8:25 PM Surrounding Skin Assessment Dry;Intact 01/23/2018 8:25 PM [REMOVED] Ileal Conduit 12/30/17 1115 Left (Removed) 12/30/17 1115 Left Removed 12/30/17 1607 Colostomy 12/30/17 1209 Right (Active) 12/30/17 1209 Right Agree With My Assessment? Except 01/24/2018 4:00 AM Stoma Assessment [place] 01/25/2018 11:00 PM Drainage Description [place] 01/25/2018 [...] - Diabetes Education Nursing Clinical Excellence [facility] [email or web address] [phone] office [phone] pager * Nani Lynch DO - 01/17/2018 2:35 PM CDT Associated Order(s): CONSULT INFECTIOUS DISEASES PHYSICIAN This note is to remove new consult order. Please see ID progress note 01/17/18. * Valerie Young MA - 01/17/2018 1:47 PM CDT Associated Order(s): CONSULT NEUROREHABILITATION PSYCHOLOGY Formatting of this note may be different from the original. [id number] Pt was seen b/s for initial eval with no family or significant others present. Diagnosis: F33.1 Major depressive disorder, recurrent, moderate; F41.9 Anxiety; R/O Cognitive Impairment Requesting Physician: Jeb Reason for Request: Coping Relevant History: The following history was taken from available medical records unless otherwise indicated. Pt is a 52 y.o., , female, RH admitted on 12/13/2017 to [facility] for scheduled left hemipelvectomy for chondrosarcoma, which [...] a son-in-law, and her daughter's boyfriend in [place], [place]. Pt identified her , daughters, son, and her son's family as members of her social support network. 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 Valerie Young M.A. Pipe Line Inspector Pager [phone] ATTESTATION: I discussed this session and pt's care with the automotive internet sales consultant and agree with her report and POC [...] pain Post-op pain Bacteremia Amputated left leg ([facility]) Candiduria Wounds (NOT for Pressure Injuries) 11/30/17 [...] Yes 01/06/2018 8:00 PM Wound Base Assessment [place] 01/17/2018 10:00 AM Surrounding Skin Assessment Intact [...] Assessment? Yes 01/10/2018 12:15 PM Stoma Assessment [place];Clean 01/17/2018 8:36 AM Drainage Description [place] 01/17/2018 [...] Garsia RN, BSN Wound /Ostomy Team Pager [phone] After Hours Wound/Ostomy team pager [phone] * Jasper Betts, SANJAY - 01/17/2018 10:01 [...] call or re-consult. Pain Management Resource Team--pager [phone] * Sabina Rivers - 01/16/2018 8:33 AM [...] up on Wednesday as scheduled. Recommendation: Continue [id number] Consistent Carb Diet. Continue Nutren 1.5 @ 75ml/hr x's 6 hrs. Please be sure to give 3 [employer] with evening tube feeds. Ostomy OP has been less over past 3 days. Please monitor GI status as pt had ileus noted on 01/06. Sabina Woodward, MS, RD, LD Pager [phone] Office [phone] * Linus Pisano MD - 01/15/2018 5:05 [...] to d/c today 03/02 to home with [facility]. Pt's to provide [...] home infusion orders to [facility] fax: [phone]. [facility] agreeable to delivering medications and teaching at 3 pm. MICKI spoke with Carolina with [facility] to coordinate home IV antibiotics plan. [...] assistance. MICKI sent orders and AVS to [facility] at fax: [phone]. MICKI met with pt and pt's Marvin [...] Name, Phone and Availability #1: Pt's Marvin [phone] Does the patient use Medicaid Transportation?: No ? Next Level of Care (Acute Psych discharges only) ? Discharge Disposition Durable Medical Equipment No service has been selected for the patient. Destination No service has been selected for the patient. Home Care - Selection Complete Service Request Status Selected Specialties Address Phone Number Fax Number [facility] Selected Home Health Services [facility] [phone] Dialysis/Infusion No service has been selected for the patient. Hakeem Escalona LMSW Phone: [phone] Pager: [phone] * Case Mgmt DC Plan - William [...] bed to be delivered today by [facility] DME [phone], [id number] W/c and SB present for d/c. Pt has all other DME Pt no longer needs W/v NCm will call [facility] Wound Vac / fax , for return NCm will continue to assess and follow for any new Equipment needs before discharge William Spann RN- [phone] ? Info or Referral Information or Referral [...] Name, Phone and Availability #1: Pt's Marvin [phone] Does the patient use Medicaid Transportation?: No [...] 52 y.o. female. : 1965 MRN# : [id number] Team Conference Attendees: Ruth Allen MD, Attending Physician; Ravi Pride MD, Resident Physician; Hakeem Escalona [facility], Social Work; William Spann RNstripper printed circuit boards; Cherri Kinney PhD, ABPP, Neuropsychology;Halima Miranda PhD, Post Doctoral Fellow, Neuropsychology; Nani Magaña PharmD, Pharmacy; Loreta Benitez RN, Rehab Multiple Spindle Router Operator; Ruth LLAMAS/Tapan JACOBSON, Ship Propeller Finisher ; Esteban Montoya OTR, Occupational Therapy; Hedy Pearce DPT, Physical Therapy; Serena Christian CONSTRUCTION EQUIPMENT MECHANIC HELPER, Speech Therapy; Eunice Ruff, Clinical Trauma Coordinator; Olena Carreon RN, Nursing Medical Update: Beata Kaiser is a 52 yo F who presented to [facility] on 12/13/17 for scheduled left hemipelvectomy [...] yo), and adult son Skyler. 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 Pt's family can provide consistent support, as needed, and physical assistance. Pt was independent with all ADL's, including working and driving, without device, prior to admission. Pt owns a single point cane. Plan Home with home health OT/PT DME Hospital bed with air mattress, wheelchair/cushion ([facility] and will provide loaner chair), slideboard, roller walker (can provide family information to purchase), padded drop-arm commode if melchor remains out, transport home? (pending car transfer), ramp complete Rehabilitation Plan Progress Transitioned lower body dressing at supine bed level to edge of bed with meter reader chief and standing to head well puller hips Upper body dressing from minimal assistance [...] demonstrate appropriate nutritional intake with: Progressing Functional Karnack Measures Eating FIM: 7 - Complete independence [...] Planning: Home Health MICKI sent referral to [facility] via [employer]. Aniyah with [facility] notified they are out of network with pt's insurance, but reported pt has met her in network out of pocket max, so she would be covered 100% with an in network agency. MICKI sent referral to [facility]. Kenneth with [facility] reported pt has met her in network out of pocket max, so will likely be covered 100%, but prior auth has to be completed. MICKI spoke with Kristen with wound team. Kristen agreeable to contacting [facility] to provide wound care instructions. Kristen [...] Name, Phone and Availability #1: Pt's Marvin [phone] Does the patient use Medicaid Transportation?: No ? Next Level of Care (Acute Psych discharges only) ? Discharge Disposition Durable Medical Equipment No service has been selected for the patient. [facility] Destination No service has been selected for the patient. Home Care No service has been selected for the patient. Dialysis/Infusion No service has been selected for the patient. Hakeem Escalona LMSW Phone: [phone] Pager: [phone] * Case Mgmt DC Plan - Hakeem [...] SW contacted [facility] and spoke with nursing professor, Keiko. Keiko thoroughly reviewed pt's case with [...] Name, Phone and Availability #1: Pt's Marvin [phone] Does the patient use Medicaid Transportation?: No ? Next Level of Care (Acute Psych discharges only) ? Discharge Disposition Durable Medical Equipment No service has been selected for the patient. [facility] Destination No service has been selected for the patient. Home Care No service has been selected for the patient. Dialysis/Infusion No service has been selected for the patient. Hakeem Escaolna LMSW Phone: [phone] Pager: [phone] * Case Mgmt DC Plan - Hakeem [...] reviewing case with her nursing staff and relief manager, as well as pursuing insurance auth. [...] Name, Phone and Availability #1: Pt's Marvin [phone] Does the patient use Medicaid Transportation?: No ? Next Level of Care (Acute Psych discharges only) ? Discharge Disposition Durable Medical Equipment No service has been selected for the patient. [facility] Destination No service has been selected for the patient. Home Care No service has been selected for the patient. Dialysis/Infusion No service has been selected for the patient. Hakeem Escalona LMSW Phone: [phone] Pager: *[phone] * Case Mgmt DC Plan - Hakeem [...] recommendations. SW agreeable to working with [facility] and [facility] [...] Name, Phone and Availability #1: Pt's Marvin [phone] Does the patient use Medicaid Transportation?: No ? Next Level of Care (Acute Psych discharges only) ? Discharge Disposition Durable Medical Equipment No service has been selected for the patient. [facility] Destination No service has been selected for the patient. Home Care No service has been selected for the patient. Dialysis/Infusion No service has been selected for the patient. Hakeem Escalona LMSW Phone: [phone] Pager: [phone] * Case Mgmt DC Plan - William [...] for d/c. NCm sent referral to [facility] [phone]/ fax [phone] for slide board NCm sent referral to [facility] Wound Vac / fax . NC sent referral to [facility] near [place], [place] for Hospital bed. [phone] Therapy will order custom w/c. Pt to have ramps installed this weekend. NCM provided patient with Accessibilty Medical Equipment, , form to get Equipment before discharge Pt will need RW which will be OOP. NCm will continue to assess and follow for any new Equipment needs before discharge William Spann RN-[phone] ? Info or Referral Information or Referral [...] Name, Phone and Availability #1: Pt's Marvin [phone] Does the patient use Medicaid Transportation?: No [...] 52 y.o. female. : 1965 MRN# : [id number] Team Conference Attendees: Ruth Allen MD, Attending Physician;Ravi Pride MD, Resident Physician; Judith Gilbert MD, Resident Physician; Hakeem Escalona [facility], Social Work;William Spann RNstripper printed circuit boards;Cherri Kinney PhD, ABPP, Neuropsychology; Halima Miranda PhD, Post Doctoral Fellow, Neuropsychology; Valerie Saravia MA, Pipe Line Inspector, Psychology; Leia Zimmerman RD LD, Clinical Nutrition; Bridget Fish RN, Clincal Trauma Coordinator; Eunice Vargas RN, Clincal Trauma Coordinator; Nani Magaña PharmD, Pharmacy; Batool Lyons RN, Nurse Supervisor [employer]; Ruth LLAMAS/Tapan JACOBSON, Ship Propeller Finisher; Serena Christian CONSTRUCTION EQUIPMENT MECHANIC HELPER, Speech Therapy; Esteban Montoya OTR, Occupational Therapy; Hedy Pearce DPT, Physical Therapy; Ashley Smith RN, Nursing Medical Update: Beata Kaiser is a 52 yo F who presented to [facility] on 12/13/17 for scheduled left hemipelvectomy [...] yo), and adult son Skyler. 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 Pt's family can provide consistent support, as needed, and physical assistance. Pt was independent with all ADL's, including working and driving, without device, prior to admission. Pt owns a single point cane. Plan Home with home health OT/PT DME Hospital bed with air mattress, wheelchair/cushion ([facility] 03/01 and will provide loaner chair), slideboard, roller walker (can provide family information to purchase), padded drop-arm commode if melchor remains out, transport home? (pending car transfer), Wound Vac, Slideboard (wooden) Rehabilitation Plan Progress Transitioned lower body dressing at supine bed level to edge of bed with meter reader chief and standing to head well puller hips Upper body dressing from minimal assistance [...] demonstrate appropriate nutritional intake with: Progressing Functional Karnack Measures Eating FIM: 7 - Complete independence [...] Name, Phone and Availability #1: Pt's Marvin [phone] Does the patient use Medicaid Transportation?: No ? Next Level of Care (Acute Psych discharges only) ? Discharge Disposition Durable Medical Equipment No service has been selected for the patient. Destination No service has been selected for the patient. Home Care No service has been selected for the patient. Dialysis/Infusion No service has been selected for the patient. Hakeem Escalona [facility] Phone: [phone] Pager: [phone] * Rehab Team Conference - Loreta Benitez RN - 02/16/2018 10:47 AM CDT Formatting of this note may be different from the original. Team Conference Note Date of Admission: 01/14/2018 Date of Team Conference: 02/16/2018 Beata Kaiser is a 52 y.o. female. : 1965 MRN# : [id number] Team Conference Attendees: Ruth Allen MD, Attending Physician; Ravi Pride MD, Resident Physician; Hakeem Escalona DIRECTOR VOLUNTEER SERVICES, Social Work; William Spann RNstripper printed circuit boards; Cherri Kinney PhD, ABPP, Neuropsychology;Halima Miranda PhD, Post Doctoral Fellow, Neuropsychology; Leia Zimmerman RD LD, Clinical Nutrition; Nani Magaña PharmD, Pharmacy; Loreta Benitez RN, Rehab Multiple Spindle Router Operator; Ruth LLAMAS/Tapan JACOBSON, Ship Propeller Finisher; Serena Christian CONSTRUCTION EQUIPMENT MECHANIC HELPER, Speech Therapy, Esteban Montoya OTR, Occupational Therapy; Hedy Pearce DPT, Physical Therapy; Julia Frost RN, Nursing Medical Update: Beata Kaiser is a 52 yo F who presented to [facility] on 12/13/17 for scheduled left hemipelvectomy [...] yo), and adult son Skyler. 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 Pt's family can provide consistent support, as needed, and physical assistance. Pt was independent with all ADL's, including working and driving, without device, prior to admission. Pt owns a single point cane. Plan Home with [facility] OT/PT/RN DME Hospital bed with air mattress, [...] demonstrate appropriate nutritional intake with: Progressing Functional Karnack Measures Eating FIM: 7 - Complete independence [...] Home Health contacted by Beata with [facility]. Beata agreeable to following for d/c and obtaining insurance auth. [id number]. Beata will need updated clinicals closer to d/c. ? Medication Needs Medication Needs: Medication Prior-Auth ? Financial Financial: No Needs Identified ? Legal Legal: No Needs Identified ? Other Other/None: No needs identified Disposition ? Expected Discharge Date Expected Discharge Date: 02/28/18 ? Transportation Does the patient need discharge transport arranged?: No Transportation Name, Phone and Availability #1: Pt's Marvin [phone] Does the patient use Medicaid Transportation?: No [...] for the patient. Hakeem Escalona LMSW Phone: [phone] Pager: [phone] * Case Mgmt DC Plan - Hakeem [...] MICKI sent referral to [facility] via [employer]. ? Medication Needs Medication Needs: Medication Prior-Auth ? Financial Financial: No Needs Identified ? Legal Legal: No Needs Identified ? Other Other/None: No needs identified Disposition ? Expected Discharge Date Expected Discharge Date: 02/28/18 ? Transportation Does the patient need discharge transport arranged?: No Transportation Name, Phone and Availability #1: Pt's Marvin [phone] Does the patient use Medicaid Transportation?: No [...] for the patient. Hakeem Escalona LMSW Phone: [phone] Pager: [phone] * Rehab Team Conference - Ruth Allen [...] 52 y.o. female. : 1965 MRN# : [id number] Team Conference Attendees: Ruth Allen MD, Attending Physician; Ravi Pride MD, Resident Physician; Hakeem Escalona DIRECTOR VOLUNTEER SERVICES, Social Work; William Spann RNstripper printed circuit boards; Cherri Kinney PhD, ABPP, Neuropsychology;Halima Miranda PhD, Post Doctoral Fellow, Neuropsychology; Leia Zimmerman RD LD, Clinical Nutrition; Nani Magaña PharmD, Pharmacy; Loreta Benitez RN, Rehab Multiple Spindle Router Operator; Ruth LLAMAS/Tapan JACOBSON, Ship Propeller Finisher; Serena Christian CONSTRUCTION EQUIPMENT MECHANIC HELPER, Speech Therapy, Gianna Saucedo, OTR Occupational Therapy; Hedy Pearce DPT, Physical Therapy; Olena Carreon RN, Nursing Medical Update: Beata Kaiser is a 52 yo F who presented to [facility] on 12/13/17 for scheduled left hemipelvectomy [...] yo), and adult son Skyler. 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 Pt's [...] matress for pressure relief. Ocassional repositioning at [facility] per pt request. Sit up in wheelchair [...] demonstrate appropriate nutritional intake with: Progressing Functional Karnack Measures Eating FIM: 7 - Complete independence [...] value, and read back): 6.6 HgB Time MD/TUMBLING INSTRUCTOR Notified: 0725 MD/TUMBLING INSTRUCTOR Name: Ravi Pride MD/TUMBLING INSTRUCTOR Response/Orders Given: STAT CBC complete at 0735 [...] Name, Phone and Availability #1: Pt's Marvin [phone] Does the patient use Medicaid Transportation?: No ? Next Level of Care (Acute Psych discharges only) ? Discharge Disposition Durable Medical Equipment No service has been selected for the patient. Destination No service has been selected for the patient. Home Care No service has been selected for the patient. Dialysis/Infusion No service has been selected for the patient. Hakeem Escalona LMSW Phone: [phone] Pager: [phone] * Rehab Team Conference - Ruth Berger - 02/02/2018 11:02 AM CDT Formatting of this note may be different from the original. Team Conference Note Date of Admission: 01/14/2018 Date of Team Conference: 02/02/2018 Beata Kaiser is a 52 y.o. female. : 1965 MRN# : [id number] Team Conference Attendees: Ruth Allen MD, Attending Physician;Ravi Pride MD, Resident Physician; Hakeem Escalona DIRECTOR VOLUNTEER SERVICES, Social Work;William Spann RNstripper printed circuit boards; Cherri Kinney PhD, ABPP, Neuropsychology;Halima Miranda PhD, Post Doctoral Fellow, Neuropsychology; Leia Zimmerman RD LD, Clinical Nutrition; Loreta Benitez RN, Rehab Multiple Spindle Router Operator; Ruth LLAMAS/Tapan JACOBSON, Ship Propeller Finisher; Serena Christian CONSTRUCTION EQUIPMENT MECHANIC HELPER, Speech Therapy; Esteban Montoya OTR, Occupational Therapy; Hedy Pearce DPT, Physical Therapy; Christin Mckeon RN, Nursing Medical Update: Beata Kaiser is a 52 yo F who presented to [facility] on 12/13/17 for scheduled left hemipelvectomy [...] yo), and adult son Skyler. 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 Pt's [...] intake with: Moderate verbal cues, Progressing Functional Karnack Measures Eating FIM: 7 - Complete independence [...] by Emi and Herve with [facility] [phone] attempting to coordinate start of Hyperbaric treatments [...] be moved to 1:30. MICKI spoke with manager of community relations, who was agreeable to working with nursing [...] Name, Phone and Availability #1: Pt's Marvin [phone] Does the patient use Medicaid Transportation?: No ? Next Level of Care (Acute Psych discharges only) ? Discharge Disposition Durable Medical Equipment No service has been selected for the patient. Destination No service has been selected for the patient. Home Care No service has been selected for the patient. Dialysis/Infusion No service has been selected for the patient. Hakeem Escalona LMSW Phone: [phone] Pager: [phone] * Critical Results - Tamiko Gregg RN - 01/28/2018 3:58 PM CDT Critical result or procedure called (document test and value, and read back): ( +) staph from blood culture in left hand on 01/27 Time MD/TUMBLING INSTRUCTOR Notified: 1559 MD/TUMBLING INSTRUCTOR Name: Dr Pride MD/TUMBLING INSTRUCTOR Response/Orders Given: No new orders at this [...] for HH care. Pt reported that Dr. Shcneider had just met with her and is [...] Name, Phone and Availability #1: Pt's Marvin [phone] Does the patient use Medicaid Transportation?: No ? Next Level of Care (Acute Psych discharges only) ? Discharge Disposition Durable Medical Equipment No service has been selected for the patient. [facility] Destination No service has been selected for the patient. Home Care No service has been selected for the patient. Dialysis/Infusion No service has been selected for the patient. Hakeem Escalona LMSW Phone: [phone] Pager: [phone] * Rehab Team Conference - Ruth Berger - 01/26/2018 10:51 AM CDT Formatting of this note may be different from the original. Team Conference Note Date of Admission: 01/14/2018 Date of Team Conference: 01/26/2018 Beata Kaiser is a 52 y.o. female. : 1965 MRN# : [id number] Team Conference Attendees: Ruth Allen MD, Attending Physician;Ravi Pride MD, Resident Physician; Hakeem Escalona LMSW, Social Work;William Spann RNstripper printed circuit boards; Cherri Kinney PhD, ABPP, Neuropsychology;Halima Miranda PhD, Post Doctoral Fellow, Neuropsychology; Valerie Saravia MA, Pipe Line Inspector, Psychology; Leia Zimmerman RD LD, Clinical Nutrition; Nani Magaña PharmD, Pharmacy; Batool Lyons RN, Nurse Supervisor [employer]; Loreta Benitez RN, Rehab Multiple Spindle Router Operator; Ruth LLAMAS/Tapan JACOBSON, Ship Propeller Finisher; Serena Christian CONSTRUCTION EQUIPMENT MECHANIC HELPER, Speech Therapy;Esteban Montoya OTR, Occupational Therapy; Hedy Pearce DPT, Physical Therapy; Mark Soto RN, Nursing Medical Update: Beata Kaiser is a 52 yo F who presented to [facility] on 12/13/17 for scheduled left hemipelvectomy [...] with meals - post meal dosing Novolog [facility] Nutrition - Current diet: diabeticand nocturnal tube feeds - Nutren 1.5 from [phone] at 75mL/hr through [employer] protein packs per [...] yo), and adult son Skyler. 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 Pt's [...] x40 minutes in wheelchair 5/8 Have obtained [employer] select cushion for trial for wheelchair mobility [...] nutritional intake with: Moderate verbal cues Functional Karnack Measures Eating FIM: 5 - Set up [...] spoke with patient about Discharge Equipment needs [facility] provided pt with W/c ramp list. Pt most likely need W/c and SB at d/c. [facility] will continue to assess and follow for any new Equipment needs before discharge William Spann RN- [phone] ? Info or Referral Information or Referral [...] Name, Phone and Availability #1: Pt's Marvin [phone] Does the patient use Medicaid Transportation?: No [...] Name, Phone and Availability #1: Pt's Marvin [phone] Does the patient use Medicaid Transportation?: No ? Next Level of Care (Acute Psych discharges only) ? Discharge Disposition Durable Medical Equipment No service has been selected for the patient. Destination No service has been selected for the patient. Home Care No service has been selected for the patient. Dialysis/Infusion No service has been selected for the patient. Hakeem Escalona LMSW Phone: [phone] Pager: [phone] * Rehab Team Conference - Loreta Benitez RN - 01/19/2018 11:30 AM CDT Formatting of this note may be different from the original. Team Conference Note Date of Admission: 01/14/2018 Date of Team Conference: 01/19/2018 Beata Kaiser is a 52 y.o. female. : 1965 MRN# : [id number] Team Conference Attendees: Ruth Allen MD, Attending Physician; Ravi Pride MD, Resident Physician; Hakeem Escalona LMSW, Social Work; William Spann RNstripper printed circuit boards; Cherri Kinney PhD, ABPP, Neuropsychology; Leia Zimmerman RD LD, Clinical Nutrition; Nani Magaña PharmD, Pharmacy; Batool Lyons, Nurse Supervisor [employer] , Loreta Benitez RN, Rehab Multiple Spindle Router Operator; Ruth LLAMAS/Tapan JACOBSON, Ship Propeller Finisher; Serena Christian CONSTRUCTION EQUIPMENT MECHANIC HELPER, Speech Therapy; Esteban Montoya OTR, Occupational Therapy; Feli Barrios DPT, Physical Therapy; Valerie Young, Pipe Line Inspector, Christin Mckeon, RN, Nursing Medical Update: Beata Kaiser is a 52 yo F who presented to [facility] on 12/13/17 for scheduled left hemipelvectomy [...] nocturnal tube feeds - Nutren 1.5 from [phone] at 75mL/hr through [employer] protein packs per [...] yo), and adult son Skyler. 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 Pt's [...] balance edge of mat during ADLs Initiated sit<>jailer/training officer parallel bars using draw sheet under pt [...] intake with: Minimum verbal cues, Progressing Functional Karnack Measures Eating FIM: 1 - Total assistance, [...] Discharge Planning for Home Anticipated Patient Address/Phone [address] [place] [phone] (home) Emergency Contact Extended Emergency Contact Information Primary Emergency Contact: Marvin Kaiser [facility] Relation: Spouse Secondary Emergency Contact: Lynn Kaiser [facility] Relation: Daughter Healthcare Directive Healthcare Directive: No, patient does not have a healthcare directive Would patient like to fill out a (a new) Healthcare Directive?: No, patient declined Transportation Does the patient need discharge transport arranged?: No Transportation Name, Phone and Availability #1: Pt's Marvin [phone] Does the patient use Medicaid Transportation?: No [...] yo), and adult son Skyler. 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 Pt's [...] PCP about 2 months ago. ? Pharmacy [facility] [address] [place] [address] [facility] [id number] ? Durable Medical Equipment Durable Medical Equipment [...] concerned [facility] doesn't treat amputees) OT: No CONSTRUCTION EQUIPMENT MECHANIC HELPER: No ? Jail Facility/Penitentiary SNF: No NH: No ? Inpatient Rehab IPR: No ? Long-Term Acute Care Hospital LTACH: No ? Acute Hospital Stay Acute Hospital Stay: Yes Was patient's stay within the last 30 days?: Yes When did patient receive care?: December 2017 Name of hospital: [facility] Hakeem EscalonaPOPPY Phone: [phone] Pager: [phone] in this encounter Plan of Treatment Date [...] Specimen Performing Laboratory [facility] [address] [place] [address] * BASIC METABOLIC PANEL CELLULAR THERAPEUTICS (03/02/2018 [...] Pharmacist for questions. Specimen Performing Laboratory Blood [facility] [address] [place] [address] * CBC CELLULAR THERAPEUTICS (03/02/2018 8:15 AM) [...] - 11 [place] Specimen Performing Laboratory Blood [facility] [address] [place] [address] * POC GLUCOSE (03/02/2018 7:05 AM) Component Value Ref Range Glucose, POC 99 70 - 100 MG/DL Specimen Performing Laboratory [facility] [address] [place], [place] [id number] * POC GLUCOSE (03/01/2018 9:13 PM) Component Value Ref Range Glucose, POC 132 (H) 70 - 100 MG/DL Specimen Performing Laboratory [facility] [address] [place] [address] * LIVER FUNCTION PANEL (03/01/2018 8:07 PM) Component Value Ref Range Total Bilirubin 0.3 0.3 - 1.2 MG/DL Bilirubin, Direct <0.1 <0.4 MG/DL Albumin 2.3 (L) 3.5 - 5.0 G/DL Alk Phosphatase 110 25 - 110 U/L AST (SGOT) 47 (H) 7 - 40 U/L ALT (SGPT) 26 7 - 56 U/L Total Protein 5.7 (L) 6.0 - 8.0 G/DL Specimen Performing Laboratory [facility] [address] [place] [address] * VANCOMYCIN TROUGH (03/01/2018 8:07 PM) Component Value Ref Range Vancomycin Trough 17.3 10.0 - 20.0 MCG/ML Specimen Performing Laboratory Blood, venous - Blood [facility] [address] [place], [place] [id number] * POC GLUCOSE (03/01/2018 5:18 PM) Component Value Ref Range Glucose, POC 109 (H) 70 - 100 MG/DL Specimen Performing Laboratory [facility] [address] [place] [address] * POC GLUCOSE (03/01/2018 3:17 PM) Component Value Ref Range Glucose, POC 100 70 - 100 MG/DL Specimen Performing Laboratory [address] [address] * POC GLUCOSE (03/01/2018 1:20 PM) Component Value Ref Range Glucose, POC 114 (H) 70 - 100 MG/DL Specimen Performing Laboratory [facility] [address] [place] [address] * POC GLUCOSE (03/01/2018 11:14 AM) Component Value Ref Range Glucose, POC 145 (H) 70 - 100 MG/DL Specimen Performing Laboratory [address] [address] * POC GLUCOSE (03/01/2018 6:58 AM) Component Value Ref Range Glucose, POC 94 70 - 100 MG/DL Specimen Performing Laboratory [facility] [address] [place] [address] * POC GLUCOSE (02/28/2018 8:19 PM) Component Value Ref Range Glucose, POC 78 70 - 100 MG/DL Specimen Performing Laboratory [address] [address] * POC GLUCOSE (02/28/2018 4:59 PM) Component Value Ref Range Glucose, POC 110 (H) 70 - 100 MG/DL Specimen Performing Laboratory [address] [address] * POC GLUCOSE (02/28/2018 3:50 PM) Component Value Ref Range Glucose, POC 103 (H) 70 - 100 MG/DL Specimen Performing Laboratory [facility] [address] [place] [address] * POC GLUCOSE (02/28/2018 1:51 PM) Component Value Ref Range Glucose, POC 104 (H) 70 - 100 MG/DL Specimen Performing Laboratory [address] [address] * POC GLUCOSE (02/28/2018 11:51 AM) Component Value Ref Range Glucose, POC 126 (H) 70 - 100 MG/DL Specimen Performing Laboratory [facility] [address] [place] [address] * BASIC METABOLIC PANEL CELLULAR THERAPEUTICS (02/28/2018 [...] questions. Specimen Performing Laboratory [facility] [address] [place] [address] * PREALBUMIN (02/28/2018 8:08 AM) Component Value Ref Range Prealbumin 7.0 (L) 17 - 34 MG/DL Specimen Performing Laboratory Blood [facility] [address] [place] [address] * CBC CELLULAR THERAPEUTICS (02/28/2018 8:08 AM) [...] [place] Specimen Performing Laboratory Blood [facility] [address] [place] [address] * POC GLUCOSE (02/28/2018 7:19 AM) Component Value Ref Range Glucose, POC 95 70 - 100 MG/DL Specimen Performing Laboratory [facility] [address] [place] [address] * POC GLUCOSE (02/27/2018 8:31 PM) Component Value Ref Range Glucose, POC 127 (H) 70 - 100 MG/DL Specimen Performing Laboratory [facility] [address] [place] [address] * POC GLUCOSE (02/27/2018 4:55 PM) Component Value Ref Range Glucose, POC 124 (H) 70 - 100 MG/DL Specimen Performing Laboratory [facility] [address] [place] [address] * TRANSFUSE RBC'S NON-BLEEDING PT (02/27/2018 2:00 PM) Specimen Performing Laboratory Blood * POC GLUCOSE (02/27/2018 12:09 PM) Component Value Ref Range Glucose, POC 201 (H) 70 - 100 MG/DL Specimen Performing Laboratory [facility] [address] [place] [address] * GRAM STAIN (02/27/2018 10:12 AM) Component Value Ref Range Battery Name GRAM STAIN Specimen Description SWAB Special Requests NONE Gram Stain RARE NEUTROPHILS FEW GRAM NEGATIVE RODS FEW GRAM POSITIVE COCCI Report Status FINAL 02/27/2018 Specimen Performing Laboratory Swab [facility] [address] [place] [address] * CULTURE-WOUND/TISSUE/FLUID(AEROBIC ONLY)W/SENSITIVITY (02/27/2018 10:12 AM) Component [...] RESISTANT STAPHYLOCOCCUS AUREUS Specimen Performing Laboratory Swab [facility] [address] [place] [address] Organism Antibiotic Method Susceptibility Heavy growth Cefepime [...] Performing Laboratory Urine [facility] [address] [place] [address] Organism Antibiotic Method Susceptibility <100,000 organisms/ml Ampicillin [...] Screen NEG Electronic Crossmatch YES Unit Number [id number] Blood Component Type RBC,ADSOL,LEUKO REDUCED Unit Division 0 Status OF Unit TRANSFUSED Transfusion Status OK TO TRANSFUSE Crossmatch Result COMPATIBLE,ELECTRONIC Specimen Performing Laboratory Blood [facility] [address] [place] [address] * UA REFLEX CULTURE LABEL (02/27/2018 7:45 AM) Component Value Ref Range UA Reflex Culture LAB LABEL Specimen Performing Laboratory Urine [facility] [address] [place] [address] * URINALYSIS MICROSCOPIC REFLEX TO CULTURE (02/27/2018 [...] Performing Laboratory Urine [facility] [address] [place] [address] * URINALYSIS DIPSTICK REFLEX TO CULTURE (02/27/2018 7:45 AM) Component Value Ref Range Color,UA YELLOW Turbidity,UA CLEAR CLEAR-CLEAR Specific [place]-Urine 1.018 1.003 - 1.035 pH,UA 5.0 5.0 - 8.0 Protein,UA NEG NEG-NEG Glucose,UA NEG NEG-NEG Ketones,UA NEG NEG-NEG Bilirubin,UA NEG NEG-NEG Blood,UA NEG NEG-NEG Urobilinogen,UA NORMAL NORM-NORMAL Nitrite,UA NEG NEG-NEG Leukocytes,UA 1+ (A) NEG-NEG Urine Ascorbic Acid, UA NEG NEG-NEG Specimen Performing Laboratory Urine [facility] [address] [place] [address] * POC GLUCOSE (02/27/2018 7:12 AM) Component Value Ref Range Glucose, POC 124 (H) 70 - 100 MG/DL Specimen Performing Laboratory [facility] [address] [place] [address] * LACTIC ACID (BG - RAPID LACTATE) (02/27/2018 4:50 AM) Component Value Ref Range Lactic Acid,BG 1.0 0.5 - 2.0 MMOL/L Specimen Performing Laboratory Blood [facility] [address] [place] [address] * CBC AND DIFF (02/27/2018 4:50 AM) [...] K/UL Specimen Performing Laboratory Blood [facility] [address] [place] [address] * LACTIC ACID (BG - RAPID LACTATE) (02/26/2018 10:07 PM) Component Value Ref Range Lactic Acid,BG 3.6 (H) 0.5 - 2.0 MMOL/L Specimen Performing Laboratory [facility] [address] [place] [address] * POC GLUCOSE (02/26/2018 8:46 PM) Component Value Ref Range Glucose, POC 156 (H) 70 - 100 MG/DL Specimen Performing Laboratory [facility] [address] [place] [address] * LACTIC ACID (BG - RAPID LACTATE) (02/26/2018 6:30 PM) Component Value Ref Range Lactic Acid,BG 3.6 (H) 0.5 - 2.0 MMOL/L Specimen Performing Laboratory [facility] [address] [place] [address] * CHEST SINGLE VIEW (02/26/2018 6:04 PM) [...] Status FINAL 03/04/2018 Specimen Performing Laboratory Blood [facility] [address] [place] [address] * CULTURE-BLOOD W/SENSITIVITY (02/26/2018 5:40 PM) Component Value Ref Range Battery Name BLOOD CULTURE Specimen Description BLOOD NO SITE INDICATED Special Requests NONE Culture NO GROWTH 5 DAYS Report Status FINAL 03/04/2018 Specimen Performing Laboratory Blood [facility] [address] [place] [address] * POC GLUCOSE (02/26/2018 4:55 PM) Component Value Ref Range Glucose, POC 202 (H) 70 - 100 MG/DL Specimen Performing Laboratory [facility] [address] [place] [address] * POC GLUCOSE (02/26/2018 11:59 AM) Component Value Ref Range Glucose, POC 163 (H) 70 - 100 MG/DL Specimen Performing Laboratory [facility] [address] [place] [address] * POC GLUCOSE (02/26/2018 6:59 AM) Component Value Ref Range Glucose, POC 101 (H) 70 - 100 MG/DL Specimen Performing Laboratory [facility] [address] [place] [address] * POC GLUCOSE (02/25/2018 9:12 PM) Component Value Ref Range Glucose, POC 144 (H) 70 - 100 MG/DL Specimen Performing Laboratory [facility] [address] [place] [address] * POC GLUCOSE (02/25/2018 5:41 PM) Component Value Ref Range Glucose, POC 143 (H) 70 - 100 MG/DL Specimen Performing Laboratory [facility] [address] [place] [address] * CT CHEST W CONTRAST (02/25/2018 4:46 [...] most compatible with minimal atypical pneumonitis. 3. [id number] atelectasis in the right lung base. Finalized [...] are several unchanged tiny pulmonary nodules. A sales account representative nodule along the right minor fissure [...] are several unchanged tiny pulmonary nodules. A sales account representative nodule along the right minor fissure [...] most compatible with minimal atypical pneumonitis. 3. [id number] atelectasis in the right lung base. Finalized by Boubacar Loomis M.D. on 02/25/2018 4:52 PM. Dictated by Boubacar Loomis M.D. on 02/25/2018 4:41 PM. * POC GLUCOSE (02/25/2018 3:15 PM) Component Value Ref Range Glucose, POC 138 (H) 70 - 100 MG/DL Specimen Performing Laboratory MAIN LAB [address] [place] [address] * POC GLUCOSE (02/25/2018 1:27 PM) Component Value Ref Range Glucose, POC 157 (H) 70 - 100 MG/DL Specimen Performing Laboratory MAIN LAB [address] [place] [address]134 * POC GLUCOSE (02/25/2018 11:47 AM) Component Value Ref Range Glucose, POC 205 (H) 70 - 100 MG/DL Specimen Performing Laboratory MAIN LAB [address] [place] [address] 40995 * BASIC METABOLIC PANEL CELLULAR THERAPEUTICS (02/25/2018 [...] questions. Specimen Performing Laboratory Blood MAIN LAB [address] [place] [address] 03042 * CBC CELLULAR THERAPEUTICS (02/25/2018 8:52 AM) [...] Specimen Performing Laboratory Blood [facility] [address] [place] [address]02 * POC GLUCOSE (02/25/2018 6:51 AM) Component Value Ref Range Glucose, POC 98 70 - 100 MG/DL Specimen Performing Laboratory [address] [address] * POC GLUCOSE (02/25/2018 1:10 AM) Component Value Ref Range Glucose, POC 122 (H) 70 - 100 MG/DL Specimen Performing Laboratory [facility] [address] [place] [address]10 * POC GLUCOSE (02/24/2018 8:54 PM) Component Value Ref Range Glucose, POC 105 (H) 70 - 100 MG/DL Specimen Performing Laboratory [facility] [address] [place] [address] 21929 * POC GLUCOSE (02/24/2018 4:51 PM) Component Value Ref Range Glucose, POC 82 70 - 100 MG/DL Specimen Performing Laboratory [address] [address] * POC GLUCOSE (02/24/2018 1:24 PM) Component Value Ref Range Glucose, POC 117 (H) 70 - 100 MG/DL Specimen Performing Laboratory [address] [address] * POC GLUCOSE (02/24/2018 11:35 AM) Component Value Ref Range Glucose, POC 119 (H) 70 - 100 MG/DL Specimen Performing Laboratory [address] [address]267 * POC GLUCOSE (02/24/2018 7:45 AM) Component Value Ref Range Glucose, POC 110 (H) 70 - 100 MG/DL Specimen Performing Laboratory [facility] [address] [place] [address] 79876 * POC GLUCOSE (02/24/2018 7:07 AM) Component Value Ref Range Glucose, POC 70 70 - 100 MG/DL Specimen Performing Laboratory [facility] [address] [place] [address] 98236 * POC GLUCOSE (02/23/2018 9:28 PM) Component Value Ref Range Glucose, POC 93 70 - 100 MG/DL Specimen Performing Laboratory [facility] [address] [place] [address] 97995 * POC GLUCOSE (02/23/2018 5:07 PM) Component Value Ref Range Glucose, POC 146 (H) 70 - 100 MG/DL Specimen Performing Laboratory [facility]IN [facility] [address] [place] [address] 68191 * POC GLUCOSE (02/23/2018 5:06 PM) Component Value Ref Range Glucose, POC 298 (H) 70 - 100 MG/DL Specimen Performing Laboratory MAIN LAB [address] [place] [address] 96887 * POC GLUCOSE (02/23/2018 3:15 PM) Component Value Ref Range Glucose, POC 154 (H) 70 - 100 MG/DL Specimen Performing Laboratory MAIN LAB [address] [place] [address] * POC GLUCOSE (02/23/2018 1:14 PM) Component Value Ref Range Glucose, POC 244 (H) 70 - 100 MG/DL Specimen Performing Laboratory [facility] [address] [place] [address] 76854 * POC GLUCOSE (02/23/2018 11:49 AM) Component Value Ref Range Glucose, POC 291 (H) 70 - 100 MG/DL Specimen Performing Laboratory [facility] [address] [place], [place] [id number] * BASIC METABOLIC PANEL CELLULAR THERAPEUTICS (02/23/2018 [...] Pharmacist for questions. Specimen Performing Laboratory Blood [facility] [address] [place], [place] [id number] * CBC CELLULAR THERAPEUTICS (02/23/2018 8:00 AM) [...] - 11 FL Specimen Performing Laboratory Blood [facility] [address] [place] [address]120 * POC GLUCOSE (02/23/2018 6:51 AM) Component Value Ref Range Glucose, POC 86 70 - 100 MG/DL Specimen Performing Laboratory [address] [address] * POC GLUCOSE (02/22/2018 9:29 PM) Component Value Ref Range Glucose, POC 149 (H) 70 - 100 MG/DL Specimen Performing Laboratory [address] [address] * POC GLUCOSE (02/22/2018 4:54 PM) Component Value Ref Range Glucose, POC 110 (H) 70 - 100 MG/DL Specimen Performing Laboratory [address] [address] * POC GLUCOSE (02/22/2018 3:21 PM) Component Value Ref Range Glucose, POC 132 (H) 70 - 100 MG/DL Specimen Performing Laboratory [address] [address] * POC GLUCOSE (02/22/2018 1:29 PM) Component Value Ref Range Glucose, POC 153 (H) 70 - 100 MG/DL Specimen Performing Laboratory [address] [address] * POC GLUCOSE (02/22/2018 11:00 AM) Component Value Ref Range Glucose, POC 161 (H) 70 - 100 MG/DL Specimen Performing Laboratory [address] [address] * POC GLUCOSE (02/22/2018 7:12 AM) Component Value Ref Range Glucose, POC 162 (H) 70 - 100 MG/DL Specimen Performing Laboratory [address] [address] * POC GLUCOSE (02/21/2018 9:50 PM) Component Value Ref Range Glucose, POC 101 (H) 70 - 100 MG/DL Specimen Performing Laboratory MAIN LAB [address] [place] [address] 75374 * POC GLUCOSE (02/21/2018 4:54 PM) Component Value Ref Range Glucose, POC 118 (H) 70 - 100 MG/DL Specimen Performing Laboratory MAIN LAB [address] [place] [address] 33752 * POC GLUCOSE (02/21/2018 3:12 PM) Component Value Ref Range Glucose, POC 137 (H) 70 - 100 MG/DL Specimen Performing Laboratory MAIN LAB [address] [place] [address] 51616 * POC GLUCOSE (02/21/2018 1:12 PM) Component Value Ref Range Glucose, POC 130 (H) 70 - 100 MG/DL Specimen Performing Laboratory MAIN LAB [address] [place] [address] 14492 * POC GLUCOSE (02/21/2018 11:37 AM) Component Value Ref Range Glucose, POC 166 (H) 70 - 100 MG/DL Specimen Performing Laboratory [facility] [address] [place] [address] 90871 * BASIC METABOLIC PANEL CELLULAR THERAPEUTICS (02/21/2018 [...] Pharmacist for questions. Specimen Performing Laboratory Blood [facility] [address] [place] [address] 90994 * PREALBUMIN (02/21/2018 8:07 AM) Component Value Ref Range Prealbumin 9.0 (L) 17 - 34 MG/DL Specimen Performing Laboratory Blood [facility] [address] [place] [address] 57002 * CBC CELLULAR THERAPEUTICS (02/21/2018 8:07 AM) [...] - 11 FL Specimen Performing Laboratory Blood [facility] [address] [place] [address] 91576 * POC GLUCOSE (02/21/2018 6:59 AM) Component Value Ref Range Glucose, POC 108 (H) 70 - 100 MG/DL Specimen Performing Laboratory [facility] [address] [place] [address] 7[address]40 * POC GLUCOSE (02/20/2018 8:46 PM) Component Value Ref Range Glucose, POC 112 (H) 70 - 100 MG/DL Specimen Performing Laboratory [facility] [address] [place] [address] 39401 * POC GLUCOSE (02/20/2018 4:48 PM) Component Value Ref Range Glucose, POC 160 (H) 70 - 100 MG/DL Specimen Performing Laboratory [facility] [address] [place] [address] 23010 * POC GLUCOSE (02/20/2018 11:55 AM) Component Value Ref Range Glucose, POC 198 (H) 70 - 100 MG/DL Specimen Performing Laboratory [facility] [address] [place] [address] 36356 * POC GLUCOSE (02/20/2018 6:53 AM) Component Value Ref Range Glucose, POC 111 (H) 70 - 100 MG/DL Specimen Performing Laboratory [facility] [address] [place] [address] 6[address]82 * POC GLUCOSE (02/19/2018 8:51 PM) Component Value Ref Range Glucose, POC 182 (H) 70 - 100 MG/DL Specimen Performing Laboratory [facility] [address] [place] [address] 03952 * POC GLUCOSE (02/19/2018 4:51 PM) Component Value Ref Range Glucose, POC 143 (H) 70 - 100 MG/DL Specimen Performing Laboratory [address] [address] * POC GLUCOSE (02/19/2018 12:03 PM) Component Value Ref Range Glucose, POC 136 (H) 70 - 100 MG/DL Specimen Performing Laboratory [address] [address] * POC GLUCOSE (02/19/2018 7:19 AM) Component Value Ref Range Glucose, POC 99 70 - 100 MG/DL Specimen Performing Laboratory [address] [address] * POC GLUCOSE (02/18/2018 9:04 PM) Component Value Ref Range Glucose, POC 133 (H) 70 - 100 MG/DL Specimen Performing Laboratory [address] [address] * POC GLUCOSE (02/18/2018 8:38 PM) Component Value Ref Range Glucose, POC 156 (H) 70 - 100 MG/DL Specimen Performing Laboratory [address] [address] * POC GLUCOSE (02/18/2018 4:47 PM) Component Value Ref Range Glucose, POC 153 (H) 70 - 100 MG/DL Specimen Performing Laboratory [address] [address] * POC GLUCOSE (02/18/2018 3:24 PM) Component Value Ref Range Glucose, POC 152 (H) 70 - 100 MG/DL Specimen Performing Laboratory [facility] [address] [place] [address] 24591 * POC GLUCOSE (02/18/2018 1:23 PM) Component Value Ref Range Glucose, POC 155 (H) 70 - 100 MG/DL Specimen Performing Laboratory [address] [address] * POC GLUCOSE (02/18/2018 11:36 AM) Component Value Ref Range Glucose, POC 148 (H) 70 - 100 MG/DL Specimen Performing Laboratory [address] [address] * POC GLUCOSE (02/18/2018 7:07 AM) Component Value Ref Range Glucose, POC 96 70 - 100 MG/DL Specimen Performing Laboratory MAIN LAB [address] [place] [address] * BASIC METABOLIC PANEL CELLULAR THERAPEUTICS (02/18/2018 [...] questions. Specimen Performing Laboratory Blood MAIN LAB [address] [place] [address] 86729 * CBC CELLULAR THERAPEUTICS (02/18/2018 5:45 AM) [...] [place] Specimen Performing Laboratory Blood MAIN LAB [address] [place] [address] 44550 * POC GLUCOSE (02/17/2018 9:15 PM) Component Value Ref Range Glucose, POC 195 (H) 70 - 100 MG/DL Specimen Performing Laboratory MAIN LAB [address] [place] [address] 94231 * POC GLUCOSE (02/17/2018 5:07 PM) Component Value Ref Range Glucose, POC 140 (H) 70 - 100 MG/DL Specimen Performing Laboratory [facility] [address] [place] [address] 24693 * POC GLUCOSE (02/17/2018 3:04 PM) Component Value Ref Range Glucose, POC 149 (H) 70 - 100 MG/DL Specimen Performing Laboratory [address] [address] * POC GLUCOSE (02/17/2018 1:05 PM) Component Value Ref Range Glucose, POC 215 (H) 70 - 100 MG/DL Specimen Performing Laboratory [address] [address] * POC GLUCOSE (02/17/2018 11:22 AM) Component Value Ref Range Glucose, POC 147 (H) 70 - 100 MG/DL Specimen Performing Laboratory [address] [address] * POC GLUCOSE (02/17/2018 6:54 AM) Component Value Ref Range Glucose, POC 109 (H) 70 - 100 MG/DL Specimen Performing Laboratory [address] [address] * POC GLUCOSE (02/16/2018 9:29 PM) Component Value Ref Range Glucose, POC 111 (H) 70 - 100 MG/DL Specimen Performing Laboratory [address] [address] * POC GLUCOSE (02/16/2018 5:07 PM) Component Value Ref Range Glucose, POC 89 70 - 100 MG/DL Specimen Performing Laboratory [address] [address] * POC GLUCOSE (02/16/2018 3:10 PM) Component Value Ref Range Glucose, POC 106 (H) 70 - 100 MG/DL Specimen Performing Laboratory [address] [address] * POC GLUCOSE (02/16/2018 1:18 PM) Component Value Ref Range Glucose, POC 119 (H) 70 - 100 MG/DL Specimen Performing Laboratory [facility] [address] [place] [address] 6[address]84 * POC GLUCOSE (02/16/2018 11:52 AM) Component Value Ref Range Glucose, POC 189 (H) 70 - 100 MG/DL Specimen Performing Laboratory [facility] [address] [place] [address]159 * POC GLUCOSE (02/16/2018 6:54 AM) Component Value Ref Range Glucose, POC 90 70 - 100 MG/DL Specimen Performing Laboratory MAIN LAB [address] [place] [address] 8[address]29 * BASIC METABOLIC PANEL CELLULAR THERAPEUTICS (02/16/2018 [...] questions. Specimen Performing Laboratory Blood MAIN LAB [address] [place] [address] 8[address]69 * CBC CELLULAR THERAPEUTICS (02/16/2018 6:10 AM) [...] [place] Specimen Performing Laboratory Blood [facility]IN LAB [address] [place] [address]161 * POC GLUCOSE (02/15/2018 9:10 PM) Component Value Ref Range Glucose, POC 140 (H) 70 - 100 MG/DL Specimen Performing Laboratory MAIN LAB [address] [place] [address] 6[address]32 * POC GLUCOSE (02/15/2018 5:07 PM) Component Value Ref Range Glucose, POC 194 (H) 70 - 100 MG/DL Specimen Performing Laboratory [facility] [address] [place] [address] 9[address]11 * POC GLUCOSE (02/15/2018 3:07 PM) Component Value Ref Range Glucose, POC 182 (H) 70 - 100 MG/DL Specimen Performing Laboratory [address] [address] * POC GLUCOSE (02/15/2018 1:08 PM) Component Value Ref Range Glucose, POC 159 (H) 70 - 100 MG/DL Specimen Performing Laboratory [facility] [address] [place] [address] 56555 * POC GLUCOSE (02/15/2018 11:58 AM) Component Value Ref Range Glucose, POC 160 (H) 70 - 100 MG/DL Specimen Performing Laboratory [address] [address] * POC GLUCOSE (02/15/2018 6:55 AM) Component Value Ref Range Glucose, POC 121 (H) 70 - 100 MG/DL Specimen Performing Laboratory [facility] [address] [place] [address] 25423 * POC GLUCOSE (02/14/2018 9:16 PM) Component Value Ref Range Glucose, POC 129 (H) 70 - 100 MG/DL Specimen Performing Laboratory [facility] [address] [place] [address] 21032 * POC GLUCOSE (02/14/2018 4:51 PM) Component Value Ref Range Glucose, POC 86 70 - 100 MG/DL [place] [address] * CBC AND DIFF (02/14/2018 4:32 PM) [...] K/UL Specimen Performing Laboratory Blood MAIN LAB [address] [place] [address] * POC GLUCOSE (02/14/2018 4:08 PM) Component Value Ref Range Glucose, POC 86 70 - 100 MG/DL Specimen Performing Laboratory MAIN LAB [address] [place] [address] * POC GLUCOSE (02/14/2018 12:12 PM) Component Value Ref Range Glucose, POC 150 (H) 70 - 100 MG/DL Specimen Performing Laboratory MAIN LAB [address] [place] [address] * POC GLUCOSE (02/14/2018 6:52 AM) Component Value Ref Range Glucose, POC 93 70 - 100 MG/DL Specimen Performing Laboratory [facility] [address] [place] [address] * BASIC METABOLIC PANEL CELLULAR THERAPEUTICS (02/14/2018 [...] Specimen Performing Laboratory Blood [facility]IN [facility] [address] [place] [address]109 * PREALBUMIN (02/14/2018 6:30 AM) Component Value Ref Range Prealbumin 11.0 (L) 17 - 34 MG/DL Specimen Performing Laboratory Blood [facility] [address] [place] [address] 7[address]64 * CBC CELLULAR THERAPEUTICS (02/14/2018 6:30 AM) [...] - 11 FL Specimen Performing Laboratory Blood [facility] [address] [place], [place] [id number] * POC GLUCOSE (02/13/2018 9:02 PM) Component Value Ref Range Glucose, POC 124 (H) 70 - 100 MG/DL Specimen Performing Laboratory [facility] [address] [place], [place] [id number] * VANCOMYCIN TROUGH (02/13/2018 8:45 PM) Component Value Ref Range Vancomycin Trough 15.2 10.0 - 20.0 MCG/ML Specimen Performing Laboratory Blood, venous - Blood [facility] [address] [place], [place] [id number] * POC GLUCOSE (02/13/2018 4:53 PM) Component Value Ref Range Glucose, POC 129 (H) 70 - 100 MG/DL Specimen Performing Laboratory [facility] [address] [place] [address] 21254 * CBC (02/13/2018 3:08 PM) Component Value [...] - 11 FL Specimen Performing Laboratory Blood [facility] [address] [place] [address] 55783 * POC GLUCOSE (02/13/2018 11:57 AM) Component Value Ref Range Glucose, POC 106 (H) 70 - 100 MG/DL Specimen Performing Laboratory [facility] [address] [place] [address] 32968 * POC GLUCOSE (02/13/2018 7:16 AM) Component Value Ref Range Glucose, POC 112 (H) 70 - 100 MG/DL Specimen Performing Laboratory [address] [address] * CBC (02/13/2018 6:30 AM) Component Value [...] - 11 FL Specimen Performing Laboratory Blood [facility] [address] [place] [address]20 * POC GLUCOSE (02/12/2018 9:27 PM) Component Value Ref Range Glucose, POC 146 (H) 70 - 100 MG/DL Specimen Performing Laboratory [facility] [address] [place] [address] 33360 * POC GLUCOSE (02/12/2018 4:33 PM) Component Value Ref Range Glucose, POC 81 70 - 100 MG/DL Specimen Performing Laboratory [facility] [address] [place] [address] 78874 * POC GLUCOSE (02/12/2018 11:36 AM) Component Value Ref Range Glucose, POC 122 (H) 70 - 100 MG/DL Specimen Performing Laboratory [facility] [address] [place] [address] 01666 * POC GLUCOSE (02/12/2018 6:50 AM) Component Value Ref Range Glucose, POC 88 70 - 100 MG/DL Specimen Performing Laboratory MAIN LAB [address] [place] [address]30 * POC GLUCOSE (02/11/2018 9:16 PM) Component Value Ref Range Glucose, POC 119 (H) 70 - 100 MG/DL Specimen Performing Laboratory MAIN LAB [address] [place] [address] 29874 * POC GLUCOSE (02/11/2018 4:58 PM) Component Value Ref Range Glucose, POC 88 70 - 100 MG/DL Specimen Performing Laboratory MAIN LAB [address] [place] [address] 41187 * POC GLUCOSE (02/11/2018 11:36 AM) Component Value Ref Range Glucose, POC 91 70 - 100 MG/DL Specimen Performing Laboratory MAIN LAB [address] [place] [address] 78727 * POC GLUCOSE (02/11/2018 6:51 AM) Component Value Ref Range Glucose, POC 84 70 - 100 MG/DL Specimen Performing Laboratory MAIN LAB [address] [place] [address] 75385 * BASIC METABOLIC PANEL CELLULAR THERAPEUTICS (02/11/2018 [...] questions. Specimen Performing Laboratory Blood MAIN LAB [address] [place] [address] 76296 * CBC CELLULAR THERAPEUTICS (02/11/2018 5:45 AM) [...] - 11 FL Specimen Performing Laboratory Blood [facility] [address] [place] [address] 72471 * POC GLUCOSE (02/10/2018 9:28 PM) Component Value Ref Range Glucose, POC 155 (H) 70 - 100 MG/DL Specimen Performing Laboratory [facility] [address] [place] [address] 60867 * POC GLUCOSE (02/10/2018 5:05 PM) Component Value Ref Range Glucose, POC 105 (H) 70 - 100 MG/DL Specimen Performing Laboratory [facility] [address] [place], [place] [id number] * TYPE & CROSSMATCH (02/10/2018 4:20 PM) Component Value Ref Range Units Ordered 1 Crossmatch Expires 02/13/2018 Record Check FOUND ABO/RH(D) A POS Antibody Screen NEG Electronic Crossmatch YES Unit Number [id number] Blood Component Type RBC,ADSOL,LEUKO REDUCED Unit Division 0 Status OF Unit TRANSFUSED Transfusion Status OK TO TRANSFUSE Crossmatch Result COMPATIBLE,ELECTRONIC Specimen Performing Laboratory Blood [facility] [address] [place] [address] 47596 * POC GLUCOSE (02/10/2018 3:33 PM) Component Value Ref Range Glucose, POC 132 (H) 70 - 100 MG/DL Specimen Performing Laboratory [facility] [address] [place] [address] 23243 * POC GLUCOSE (02/10/2018 1:35 PM) Component Value Ref Range Glucose, POC 106 (H) 70 - 100 MG/DL Specimen Performing Laboratory [facility] [address] [place] [address] 35189 * POC GLUCOSE (02/10/2018 11:51 AM) Component Value Ref Range Glucose, POC 107 (H) 70 - 100 MG/DL Specimen Performing Laboratory [facility] [address] [place] [address] * CBC (02/10/2018 7:50 AM) Component Value [...] - 11 FL Specimen Performing Laboratory Blood [facility] [address] [place] [address] * POC GLUCOSE (02/10/2018 6:46 AM) Component Value Ref Range Glucose, POC 73 70 - 100 MG/DL Specimen Performing Laboratory [facility] [address] [place], [place] [id number] * CBC (02/10/2018 5:54 AM) Component Value [...] - 11 FL Specimen Performing Laboratory Blood [facility] [address] [place], [place] [id number] * POC GLUCOSE (02/09/2018 8:59 PM) Component Value Ref Range Glucose, POC 111 (H) 70 - 100 MG/DL Specimen Performing Laboratory [facility] [address] [place], [place] [id number] * VANCOMYCIN TROUGH (02/09/2018 8:57 PM) Component Value Ref Range Vancomycin Trough 9.6 (L) 10.0 - 20.0 MCG/ML Specimen Performing Laboratory Blood, venous - Blood [facility] [address] [place] [address] 60071 * POC GLUCOSE (02/09/2018 5:02 PM) Component Value Ref Range Glucose, POC 110 (H) 70 - 100 MG/DL Specimen Performing Laboratory [facility] [address] [place], [place] [id number] * POC GLUCOSE (02/09/2018 3:23 PM) Component Value Ref Range Glucose, POC 123 (H) 70 - 100 MG/DL Specimen Performing Laboratory [facility] [address] [place], [place] [id number] * POC GLUCOSE (02/09/2018 1:21 PM) Component Value Ref Range Glucose, POC 120 (H) 70 - 100 MG/DL Specimen Performing Laboratory [facility] [address] [place], [place] [id number] * POC GLUCOSE (02/09/2018 11:58 AM) Component Value Ref Range Glucose, POC 136 (H) 70 - 100 MG/DL Specimen Performing Laboratory [facility] [address] [place], [place] [id number] * POC GLUCOSE (02/09/2018 6:57 AM) Component Value Ref Range Glucose, POC 121 (H) 70 - 100 MG/DL Specimen Performing Laboratory [facility] [address] [place] [address] * BASIC METABOLIC PANEL CELLULAR THERAPEUTICS (02/09/2018 [...] Pharmacist for questions. Specimen Performing Laboratory Blood [facility] [address] [place] [address] 7[address]10 * CBC CELLULAR THERAPEUTICS (02/09/2018 6:09 AM) [...] - 11 FL Specimen Performing Laboratory Blood [facility] [address] [place] [address] 23471 * POC GLUCOSE (02/08/2018 9:02 PM) Component Value Ref Range Glucose, POC 100 70 - 100 MG/DL Specimen Performing Laboratory [facility] [address] [place] [address] 72349 * POC GLUCOSE (02/08/2018 6:43 PM) Component Value Ref Range Glucose, POC 248 (H) 70 - 100 MG/DL Specimen Performing Laboratory [facility] [address] [place] [address] 49710 * POC GLUCOSE (02/08/2018 3:21 PM) Component Value Ref Range Glucose, POC 172 (H) 70 - 100 MG/DL Specimen Performing Laboratory [facility] [address] [place] [address] 48252 * POC GLUCOSE (02/08/2018 1:23 PM) Component Value Ref Range Glucose, POC 107 (H) 70 - 100 MG/DL Specimen Performing Laboratory [facility] [address] [place] [address] 52428 * POC GLUCOSE (02/08/2018 12:05 PM) Component Value Ref Range Glucose, POC 114 (H) 70 - 100 MG/DL Specimen Performing Laboratory [facility] [address] [place] [address] 07751 * POC GLUCOSE (02/08/2018 6:54 AM) Component Value Ref Range Glucose, POC 101 (H) 70 - 100 MG/DL Specimen Performing Laboratory [facility] [address] [place] [address] 62288 * BASIC METABOLIC PANEL CELLULAR THERAPEUTICS (02/08/2018 [...] Pharmacist for questions. Specimen Performing Laboratory Blood [facility] [address] [place], [place] [id number] * POC GLUCOSE (02/07/2018 9:08 PM) Component Value Ref Range Glucose, POC 97 70 - 100 MG/DL Specimen Performing Laboratory [facility] [address] [place] [address] 95268 * POC GLUCOSE (02/07/2018 4:49 PM) Component Value Ref Range Glucose, POC 112 (H) 70 - 100 MG/DL Specimen Performing Laboratory [facility] [address] [place] [address] 13539 * POC GLUCOSE (02/07/2018 3:24 PM) Component Value Ref Range Glucose, POC 116 (H) 70 - 100 MG/DL Specimen Performing Laboratory [facility] [address] [place] [address] 06697 * POC GLUCOSE (02/07/2018 1:21 PM) Component Value Ref Range Glucose, POC 127 (H) 70 - 100 MG/DL Specimen Performing Laboratory [facility] [address] [place] [address] 20795 * POC GLUCOSE (02/07/2018 11:54 AM) Component Value Ref Range Glucose, POC 162 (H) 70 - 100 MG/DL Specimen Performing Laboratory [facility] [address] [place] [address] 05671 * CBC (02/07/2018 7:55 AM) Component Value [...] [place] Specimen Performing Laboratory Blood MAIN LAB [address] [place] [address]8 * POC GLUCOSE (02/07/2018 7:04 AM) Component Value Ref Range Glucose, POC 94 70 - 100 MG/DL Specimen Performing Laboratory MAIN LAB [address] [place] [address] 18283 * BASIC METABOLIC PANEL CELLULAR ArthroCAD (02/07/2018 5:16 AM) Component Value Ref Range [...] questions. Specimen Performing Laboratory Blood [facility] [address] [place] [address] * PREALBUMIN (02/07/2018 5:16 AM) Component Value Ref Range Prealbumin 11.0 (L) 17 - 34 MG/DL Specimen Performing Laboratory Blood MAIN LAB [address] [place] [address] * CBC CELLULAR THERAPEUTICS (02/07/2018 5:16 AM) [...] - 11 FL Specimen Performing Laboratory Blood [facility] [address] [place], [place] [id number] * POC GLUCOSE (02/06/2018 8:42 PM) Component Value Ref Range Glucose, POC 140 (H) 70 - 100 MG/DL Specimen Performing Laboratory [facility] [address] [place], [place] [id number] * POC GLUCOSE (02/06/2018 4:45 PM) Component Value Ref Range Glucose, POC 108 (H) 70 - 100 MG/DL Specimen Performing Laboratory [facility] [address] [place], [place] [id number] * POC GLUCOSE (02/06/2018 11:39 AM) Component Value Ref Range Glucose, POC 130 (H) 70 - 100 MG/DL Specimen Performing Laboratory [facility] [address] [place], [place] [id number] * POC GLUCOSE (02/06/2018 7:24 AM) Component Value Ref Range Glucose, POC 82 70 - 100 MG/DL Specimen Performing Laboratory [facility] [address] [place], [place] [id number] * BASIC METABOLIC PANEL CELLULAR THERAPEUTICS (02/06/2018 [...] questions. Specimen Performing Laboratory Blood MAIN LAB [address] [place] [address] * POC GLUCOSE (02/05/2018 9:01 PM) Component Value Ref Range Glucose, POC 95 70 - 100 MG/DL Specimen Performing Laboratory MAIN LAB [address] [place] [address] * POC GLUCOSE (02/05/2018 4:53 PM) Component Value Ref Range Glucose, POC 123 (H) 70 - 100 MG/DL Specimen Performing Laboratory [facility] [address] [place] [address]141 * POC GLUCOSE (02/05/2018 12:26 PM) Component Value Ref Range Glucose, POC 122 (H) 70 - 100 MG/DL Specimen Performing Laboratory MAIN LAB [address] [place], [place] [id number] * POC GLUCOSE (02/05/2018 7:25 AM) Component Value Ref Range Glucose, POC 101 (H) 70 - 100 MG/DL Specimen Performing Laboratory [facility] [address] [place] [address] * BASIC METABOLIC PANEL CELLULAR THERAPEUTICS (02/05/2018 [...] Pharmacist for questions. Specimen Performing Laboratory Blood [facility] [address] [place] [address] [place] [address] * VANCOMYCIN TROUGH (02/04/2018 11:15 PM) Component Value Ref Range Vancomycin Trough 18.7 10.0 - 20.0 MCG/ML Specimen Performing Laboratory Blood, venous - Blood [facility] [address] [place] [address]17 * POC GLUCOSE (02/04/2018 9:19 PM) Component Value Ref Range Glucose, POC 155 (H) 70 - 100 MG/DL Specimen Performing Laboratory [facility] [address] [place] [address] 7[address]61 * POC GLUCOSE (02/04/2018 4:50 PM) Component Value Ref Range Glucose, POC 111 (H) 70 - 100 MG/DL Specimen Performing Laboratory [facility] [address] [place], [place] [id number] * POC GLUCOSE (02/04/2018 3:15 PM) Component Value Ref Range Glucose, POC 102 (H) 70 - 100 MG/DL Specimen Performing Laboratory [facility] [address] [place], [place] [id number] * POC GLUCOSE (02/04/2018 1:12 PM) Component Value Ref Range Glucose, POC 160 (H) 70 - 100 MG/DL Specimen Performing Laboratory [facility] [address] [place] [address] 23187 * POC GLUCOSE (02/04/2018 12:00 PM) Component Value Ref Range Glucose, POC 176 (H) 70 - 100 MG/DL Specimen Performing Laboratory [facility] [address] [place] [address] 97181 * POC GLUCOSE (02/04/2018 7:11 AM) Component Value Ref Range Glucose, POC 118 (H) 70 - 100 MG/DL Specimen Performing Laboratory [facility] [address] [place], [place] [id number] * BASIC METABOLIC PANEL CELLULAR THERAPEUTICS (02/04/2018 [...] Specimen Performing Laboratory Blood MAIN LAB [address] [place] [address] * CBC AND DIFF (02/04/2018 5:50 AM) [...] Specimen Performing Laboratory Blood MAIN LAB [address] [place] [address] * LIVER FUNCTION PANEL (02/04/2018 5:50 AM) [...] G/DL Specimen Performing Laboratory Blood MAIN LAB [address] [place] [address] * POC GLUCOSE (02/03/2018 9:26 PM) Component Value Ref Range Glucose, POC 155 (H) 70 - 100 MG/DL Specimen Performing Laboratory MAIN LAB [address] [place] [address] 9[address] * POC GLUCOSE (02/03/2018 6:49 PM) Component Value Ref Range Glucose, POC 83 70 - 100 MG/DL Specimen Performing Laboratory MAIN LAB [address] [place] [address] 38257 * POC GLUCOSE (02/03/2018 5:30 PM) Component Value Ref Range Glucose, POC 95 70 - 100 MG/DL Specimen Performing Laboratory MAIN LAB [address] [place] [address] 260[address] * POC GLUCOSE (02/03/2018 3:09 PM) Component Value Ref Range Glucose, POC 167 (H) 70 - 100 MG/DL Specimen Performing Laboratory [facility] [address] [place] [address] * BASIC METABOLIC PANEL CELLULAR THERAPEUTICS (02/03/2018 [...] questions. Specimen Performing Laboratory Blood MAIN LAB [address] [place] [address] 43858 * POC GLUCOSE (02/03/2018 12:00 PM) Component Value Ref Range Glucose, POC 121 (H) 70 - 100 MG/DL Specimen Performing Laboratory MAIN LAB [address] [place] [address] 92462 * POC GLUCOSE (02/03/2018 7:13 AM) Component Value Ref Range Glucose, POC 86 70 - 100 MG/DL Specimen Performing Laboratory [facility] [address] [place] [address]9 * POC GLUCOSE (02/02/2018 9:41 PM) Component Value Ref Range Glucose, POC 134 (H) 70 - 100 MG/DL Specimen Performing Laboratory [facility] [address] [place] [address] 89[address] * POC GLUCOSE (02/02/2018 5:03 PM) Component Value Ref Range Glucose, POC 176 (H) 70 - 100 MG/DL Specimen Performing Laboratory [facility] [address] [place] [address] 46400 * POC GLUCOSE (02/02/2018 3:22 PM) Component Value Ref Range Glucose, POC 109 (H) 70 - 100 MG/DL Specimen Performing Laboratory [facility] [address] [place], [place] [id number] * POC GLUCOSE (02/02/2018 1:37 PM) Component Value Ref Range Glucose, POC 141 (H) 70 - 100 MG/DL Specimen Performing Laboratory [facility] [address] [place], [place] [id number] * POC GLUCOSE (02/02/2018 12:02 PM) Component Value Ref Range Glucose, POC 154 (H) 70 - 100 MG/DL Specimen Performing Laboratory [facility] [address] [place] [address] 96163 * POC GLUCOSE (02/02/2018 7:31 AM) Component Value Ref Range Glucose, POC 147 (H) 70 - 100 MG/DL Specimen Performing Laboratory [facility] [address] [place] [address] * BASIC METABOLIC PANEL CELLULAR THERAPEUTICS (02/02/2018 [...] questions. Specimen Performing Laboratory Blood MAIN LAB [address] [place] [address] * CBC CELLULAR THERAPEUTICS (02/02/2018 6:31 AM) [...] [place] Specimen Performing Laboratory Blood MAIN LAB [address] [place] [address] * POC GLUCOSE (02/01/2018 9:44 PM) Component Value Ref Range Glucose, POC 119 (H) 70 - 100 MG/DL Specimen Performing Laboratory MAIN LAB [address] [place], [place] [id number] * POC GLUCOSE (02/01/2018 5:03 PM) Component Value Ref Range Glucose, POC 193 (H) 70 - 100 MG/DL Specimen Performing Laboratory MAIN LAB [address] [place] [address] * BASIC METABOLIC PANEL CELLULAR THERAPEUTICS (02/01/2018 [...] Pharmacist for questions. Specimen Performing Laboratory Blood [facility] [address] [place] [address] * POC GLUCOSE (02/01/2018 3:36 PM) Component Value Ref Range Glucose, POC 224 (H) 70 - 100 MG/DL Specimen Performing Laboratory [facility] [address] [place], [place] [id number] * POC GLUCOSE (02/01/2018 1:46 PM) Component Value Ref Range Glucose, POC 273 (H) 70 - 100 MG/DL Specimen Performing Laboratory [facility] [address] [place], [place] [id number] * POC GLUCOSE (02/01/2018 12:02 PM) Component Value Ref Range Glucose, POC 255 (H) 70 - 100 MG/DL Specimen Performing Laboratory [facility] [address] [place], [place] [id number] * POC GLUCOSE (02/01/2018 7:19 AM) Component Value Ref Range Glucose, POC 111 (H) 70 - 100 MG/DL Specimen Performing Laboratory [facility] [address] [place], [place] [id number] * POC GLUCOSE (02/01/2018 3:49 AM) Component Value Ref Range Glucose, POC 125 (H) 70 - 100 MG/DL Specimen Performing Laboratory [facility] [address] [place], [place] [id number] * POC GLUCOSE (01/31/2018 9:59 PM) Component Value Ref Range Glucose, POC 150 (H) 70 - 100 MG/DL Specimen Performing Laboratory [facility] [address] [place] [address] * CULTURE-BLOOD W/SENSITIVITY (01/31/2018 6:00 PM) Component Value Ref Range Battery Name BLOOD CULTURE Specimen Description BLOOD LEFT ANTECUBITAL PERIPHERAL DRAW Special Requests NONE Culture NO GROWTH 5 DAYS Report Status FINAL 02/06/2018 Specimen Performing Laboratory Blood [facility] [address] [place] [address] 61724 * CULTURE-BLOOD W/SENSITIVITY (01/31/2018 6:00 PM) Component Value Ref Range Battery Name BLOOD CULTURE Specimen Description BLOOD PICC LINE Special Requests NONE Culture NO GROWTH 5 DAYS Report Status FINAL 02/06/2018 Specimen Performing Laboratory Blood [facility] [address] [place] [address] 24514 * POC GLUCOSE (01/31/2018 4:59 PM) Component Value Ref Range Glucose, POC 115 (H) 70 - 100 MG/DL Specimen Performing Laboratory [facility] [address] [place] [address] 9[address]17 * POC GLUCOSE (01/31/2018 3:59 PM) Component Value Ref Range Glucose, POC 143 (H) 70 - 100 MG/DL Specimen Performing Laboratory [facility] [address] [place] [address] 23718 * POC GLUCOSE (01/31/2018 1:11 PM) Component Value Ref Range Glucose, POC 172 (H) 70 - 100 MG/DL Specimen Performing Laboratory [facility] [address] [place], [place] [id number] * POC GLUCOSE (01/31/2018 11:51 AM) Component Value Ref Range Glucose, POC 124 (H) 70 - 100 MG/DL Specimen Performing Laboratory [facility] [address] [place], [place] [id number] * HEMOGLOBIN (01/31/2018 11:50 AM) Component Value Ref Range Hemoglobin 8.5 (L) 12.0 - 15.0 GM/DL Specimen Performing Laboratory Blood [facility] [address] [place], [place] [id number] * POC GLUCOSE (01/31/2018 6:56 AM) Component Value Ref Range Glucose, POC 119 (H) 70 - 100 MG/DL Specimen Performing Laboratory [facility] [address] [place] [address] 08845 * PREALBUMIN (01/31/2018 5:48 AM) Component Value Ref Range Prealbumin 10.0 (L) 17 - 34 MG/DL Specimen Performing Laboratory Blood [facility] [address] [place], [place] [id number] * BASIC METABOLIC PANEL CELLULAR THERAPEUTICS (01/31/2018 [...] Pharmacist for questions. Specimen Performing Laboratory Blood [facility] [address] [place], [place] [id number] * POC GLUCOSE (01/31/2018 4:10 AM) Component Value Ref Range Glucose, POC 117 (H) 70 - 100 MG/DL Specimen Performing Laboratory [facility] [address] [place] [address] 41931 * POC GLUCOSE (01/30/2018 9:10 PM) Component Value Ref Range Glucose, POC 170 (H) 70 - 100 MG/DL Specimen Performing Laboratory [address] [address] * POC GLUCOSE (01/30/2018 4:52 PM) Component Value Ref Range Glucose, POC 215 (H) 70 - 100 MG/DL Specimen Performing Laboratory [facility] [address] [place] [address] 07154 * POC GLUCOSE (01/30/2018 12:00 PM) Component Value Ref Range Glucose, POC 176 (H) 70 - 100 MG/DL Specimen Performing Laboratory [address] [address] * POC GLUCOSE (01/30/2018 6:49 AM) Component Value Ref Range Glucose, POC 118 (H) 70 - 100 MG/DL Specimen Performing Laboratory [address] [address] * POC GLUCOSE (01/30/2018 3:10 AM) Component Value Ref Range Glucose, POC 155 (H) 70 - 100 MG/DL Specimen Performing Laboratory [facility] [address] [place] [address] 39130 * POC GLUCOSE (01/29/2018 9:04 PM) Component Value Ref Range Glucose, POC 234 (H) 70 - 100 MG/DL Specimen Performing Laboratory [facility] [address] [place] [address] 35144 * POC GLUCOSE (01/29/2018 4:51 PM) Component Value Ref Range Glucose, POC 200 (H) 70 - 100 MG/DL Specimen Performing Laboratory [facility] [address] [place] [address] 9[address]01 * CBC (01/29/2018 1:10 PM) Component Value [...] - 11 FL Specimen Performing Laboratory Blood [facility] [address] [place] [address] 57228 * POC GLUCOSE (01/29/2018 11:48 AM) Component Value Ref Range Glucose, POC 229 (H) 70 - 100 MG/DL Specimen Performing Laboratory [facility] [address] [place] [address] 11704 * POC GLUCOSE (01/29/2018 6:52 AM) Component Value Ref Range Glucose, POC 144 (H) 70 - 100 MG/DL Specimen Performing Laboratory [facility] [address] [place] [address] 46735 * POC GLUCOSE (01/29/2018 3:09 AM) Component Value Ref Range Glucose, POC 157 (H) 70 - 100 MG/DL Specimen Performing Laboratory [facility] [address] [place] [address] 97626 * POC GLUCOSE (01/28/2018 9:42 PM) Component Value Ref Range Glucose, POC 229 (H) 70 - 100 MG/DL Specimen Performing Laboratory [facility] [address] [place] [address] 98002 * POC GLUCOSE (01/28/2018 5:12 PM) Component Value Ref Range Glucose, POC 119 (H) 70 - 100 MG/DL Specimen Performing Laboratory [facility] [address] [place] [address] 6[address]01 * VANCOMYCIN TROUGH (01/28/2018 12:15 PM) Component Value Ref Range Vancomycin Trough 11.9 10.0 - 20.0 MCG/ML Specimen Performing Laboratory Blood, venous - Blood MAIN LAB [address] [place] [address] 11229 * POC GLUCOSE (01/28/2018 12:14 PM) Component Value Ref Range Glucose, POC 156 (H) 70 - 100 MG/DL Specimen Performing Laboratory MAIN LAB [address] [place] [address] 93193 * TYPE & CROSSMATCH (01/28/2018 9:15 AM) Component Value Ref Range Units Ordered 1 Crossmatch Expires 01/31/2018 Record Check FOUND ABO/RH(D) A POS Antibody Screen NEG Electronic Crossmatch YES Unit Number [id number] Blood Component Type RBC,ADSOL,LEUKO REDUCED Unit Division 0 Status OF Unit TRANSFUSED Transfusion Status OK TO TRANSFUSE Crossmatch Result COMPATIBLE,ELECTRONIC Specimen Performing Laboratory Blood MAIN LAB [address] [place] [address] * POC GLUCOSE (01/28/2018 7:09 AM) Component Value Ref Range Glucose, POC 155 (H) 70 - 100 MG/DL Specimen Performing Laboratory MAIN LAB [address] [place] [address] 6[address]31 * CBC AND DIFF (01/28/2018 6:00 AM) [...] K/UL Specimen Performing Laboratory Blood MAIN LAB [address] [place] [address] 73680 * COMPREHENSIVE METABOLIC PANEL (01/28/2018 6:00 AM) [...] questions. Specimen Performing Laboratory Blood MAIN LAB [address] [place] [address] 18182 * POC GLUCOSE (01/28/2018 3:08 AM) Component Value Ref Range Glucose, POC 153 (H) 70 - 100 MG/DL Specimen Performing Laboratory MAIN LAB [address] [place] [address] 82068 * POC GLUCOSE (01/27/2018 9:30 PM) Component Value Ref Range Glucose, POC 243 (H) 70 - 100 MG/DL Specimen Performing Laboratory MAIN LAB [address] [place] [address] 09639 * POC GLUCOSE (01/27/2018 4:59 PM) Component Value Ref Range Glucose, POC 253 (H) 70 - 100 MG/DL Specimen Performing Laboratory MAIN LAB [address] [place] [address] 8[address]05 * POC GLUCOSE (01/27/2018 11:55 AM) Component Value Ref Range Glucose, POC 204 (H) 70 - 100 MG/DL Specimen Performing Laboratory [facility] [address] [place] [address] 42870 * POC GLUCOSE (01/27/2018 6:54 AM) Component Value Ref Range Glucose, POC 154 (H) 70 - 100 MG/DL Specimen Performing Laboratory [facility] [address] [place] [address] 55187 * POC GLUCOSE (01/27/2018 3:00 AM) Component Value Ref Range Glucose, POC 150 (H) 70 - 100 MG/DL Specimen Performing Laboratory [facility] [address] [place] [address] 8[address]23 * URINALYSIS, MICROSCOPIC (01/26/2018 11:26 PM) Component Value Ref Range WBCs,UA 0-2 0 - 2 /HPF RBCs,UA NONE 0 - 3 /HPF Specimen Performing Laboratory Urine [facility] [address] [place] [address]379 * URINALYSIS DIPSTICK (01/26/2018 11:26 PM) Component Value Ref Range Color,UA STRAW Turbidity,UA CLEAR CLEAR-CLEAR Specific [place]-Urine 1.003 1.003 - 1.035 pH,UA 7.0 5.0 - 8.0 Protein,UA NEG NEG-NEG Glucose,UA NEG NEG-NEG Ketones,UA NEG NEG-NEG Bilirubin,UA NEG NEG-NEG Blood,UA NEG NEG-NEG Urobilinogen,UA NORMAL NORM-NORMAL Nitrite,UA NEG NEG-NEG Leukocytes,UA TRACE (A) NEG-NEG Urine Ascorbic Acid, UA NEG NEG-NEG Specimen Performing Laboratory Urine [facility] [address] [place] [address]40 * CULTURE-URINE W/SENSITIVITY (01/26/2018 11:26 PM) Component Value Ref Range Battery Name URINE CULTURE Specimen Description URINE,INDWELLING CATH Special Requests NONE Culture NO GROWTH Report Status FINAL 01/28/2018 Specimen Performing Laboratory Urine - Melchor Catheter [facility] [address] [place] [address]37 * CULTURE-BLOOD W/SENSITIVITY (01/26/2018 10:30 PM) Component Value Ref Range Battery Name BLOOD CULTURE Specimen Description BLOOD RIGHT ARM PICC LINE Special Requests NONE Culture NO GROWTH 5 DAYS Report Status FINAL 02/02/2018 Specimen Performing Laboratory Blood [facility] [address] [place] [address] 13720 * CULTURE-BLOOD W/SENSITIVITY (01/26/2018 10:20 PM) Component [...] Status FINAL 02/01/2018 Specimen Performing Laboratory Blood [facility] [address] [place] [address] 22168 * POC GLUCOSE (01/26/2018 9:02 PM) Component Value Ref Range Glucose, POC 217 (H) 70 - 100 MG/DL Specimen Performing Laboratory [facility] [address] [place], [place] [id number] * POC GLUCOSE (01/26/2018 6:12 PM) Component Value Ref Range Glucose, POC 175 (H) 70 - 100 MG/DL Specimen Performing Laboratory [facility] [address] [place], [place] [id number] * POC GLUCOSE (01/26/2018 5:00 PM) Component Value Ref Range Glucose, POC 201 (H) 70 - 100 MG/DL Specimen Performing Laboratory [facility] [address] [place], [place] [id number] * POC GLUCOSE (01/26/2018 12:53 PM) Component Value Ref Range Glucose, POC 229 (H) 70 - 100 MG/DL Specimen Performing Laboratory [facility] [address] [place], [place] [id number] * POC GLUCOSE (01/26/2018 6:29 AM) Component Value Ref Range Glucose, POC 179 (H) 70 - 100 MG/DL Specimen Performing Laboratory [facility] [address] [place], [place] [id number] * CBC CELLULAR THERAPEUTICS (01/26/2018 5:00 AM) [...] FL Specimen Performing Laboratory Blood MAIN LAB [address] [place] [address] 66016 * BASIC METABOLIC PANEL CELLULAR THERAPEUTICS (01/26/2018 [...] Pharmacist for questions. Specimen Performing Laboratory Blood [facility] [address] [place] [address] 09387 * POC GLUCOSE (01/26/2018 3:37 AM) Component Value Ref Range Glucose, POC 218 (H) 70 - 100 MG/DL Specimen Performing Laboratory MAIN LAB [address] [place] [address] 67946 * POC GLUCOSE (01/25/2018 9:26 PM) Component Value Ref Range Glucose, POC 163 (H) 70 - 100 MG/DL Specimen Performing Laboratory MAIN LAB [address] [place] [address] 91588 * POC GLUCOSE (01/25/2018 4:58 PM) Component Value Ref Range Glucose, POC 292 (H) 70 - 100 MG/DL Specimen Performing Laboratory MAIN LAB [address] [place] [address] 36932 * POC GLUCOSE (01/25/2018 11:51 AM) Component Value Ref Range Glucose, POC 212 (H) 70 - 100 MG/DL Specimen Performing Laboratory MAIN LAB [address] [place] [address] * LIVER FUNCTION PANEL (01/25/2018 10:57 AM) [...] - 8.0 G/DL Specimen Performing Laboratory Blood [facility] [address] [place] [address] * CBC AND DIFF (01/25/2018 10:57 AM) [...] - 0.20 K/UL Specimen Performing Laboratory Blood [facility] [address] [place], [place] [id number] * POC GLUCOSE (01/25/2018 6:55 AM) Component Value Ref Range Glucose, POC 172 (H) 70 - 100 MG/DL Specimen Performing Laboratory MAIN LAB [address] [place], [place] [id number] * FREE T4-FREE THYROXINE (01/25/2018 5:46 AM) Component Value Ref Range T4-Free 0.8 0.6 - 1.6 NG/DL Specimen Performing Laboratory [facility] [address] [place], [place] [id number] * TSH WITH FREE T4 REFLEX (01/25/2018 5:46 AM) Component Value Ref Range TSH 10.130 (H) 0.35 - 5.00 MCU/ML Specimen Performing Laboratory Blood [facility] [address] [place], [place] [id number] * POC GLUCOSE (01/25/2018 3:20 AM) Component Value Ref Range Glucose, POC 214 (H) 70 - 100 MG/DL Specimen Performing Laboratory [facility] [address] [place] [address] * POC GLUCOSE (01/24/2018 9:01 PM) Component Value Ref Range Glucose, POC 150 (H) 70 - 100 MG/DL Specimen Performing Laboratory [place] [id number] * POC GLUCOSE (01/24/2018 4:54 PM) Component Value Ref Range Glucose, POC 147 (H) 70 - 100 MG/DL Specimen Performing Laboratory [facility] [address] [place], [place] [id number] * POC GLUCOSE (01/24/2018 11:51 AM) Component Value Ref Range Glucose, POC 202 (H) 70 - 100 MG/DL Specimen Performing Laboratory [facility] [address] [place], [place] [id number] * POC GLUCOSE (01/24/2018 6:51 AM) Component Value Ref Range Glucose, POC 175 (H) 70 - 100 MG/DL Specimen Performing Laboratory [facility] [address] [place] [address] * LIVER FUNCTION PANEL (01/24/2018 5:42 AM) [...] G/DL Specimen Performing Laboratory MAIN LAB [address] [place] [address] * PREALBUMIN (01/24/2018 5:42 AM) Component Value Ref Range Prealbumin 11.0 (L) 17 - 34 MG/DL Specimen Performing Laboratory Blood MAIN LAB [address] [place] [address] 30729 * CBC CELLULAR THERAPEUTICS (01/24/2018 5:42 AM) [...] FL Specimen Performing Laboratory Blood MAIN LAB [address] [place] [address] 59072 * BASIC METABOLIC PANEL CELLULAR THERAPEUTICS (01/24/2018 [...] questions. Specimen Performing Laboratory Blood MAIN LAB [address] [place] [address] 97025 * POC GLUCOSE (01/24/2018 3:32 AM) Component Value Ref Range Glucose, POC 191 (H) 70 - 100 MG/DL Specimen Performing Laboratory [address] [address] * POC GLUCOSE (01/23/2018 8:53 PM) Component Value Ref Range Glucose, POC 211 (H) 70 - 100 MG/DL Specimen Performing Laboratory [address] [address] * POC GLUCOSE (01/23/2018 4:56 PM) Component Value Ref Range Glucose, POC 195 (H) 70 - 100 MG/DL Specimen Performing Laboratory [address] [address] * POC GLUCOSE (01/23/2018 12:04 PM) Component Value Ref Range Glucose, POC 262 (H) 70 - 100 MG/DL Specimen Performing Laboratory [address] [address] * POC GLUCOSE (01/23/2018 8:23 AM) Component Value Ref Range Glucose, POC 261 (H) 70 - 100 MG/DL Specimen Performing Laboratory [address] [address] * POC GLUCOSE (01/23/2018 6:47 AM) Component Value Ref Range Glucose, POC 209 (H) 70 - 100 MG/DL Specimen Performing Laboratory [address] [address] * POC GLUCOSE (01/23/2018 3:28 AM) Component Value Ref Range Glucose, POC 284 (H) 70 - 100 MG/DL Specimen Performing Laboratory [address] [address] * POC GLUCOSE (01/22/2018 8:52 PM) Component Value Ref Range Glucose, POC 133 (H) 70 - 100 MG/DL Specimen Performing Laboratory [address] [address] * POC GLUCOSE (01/22/2018 5:13 PM) Component Value Ref Range Glucose, POC 114 (H) 70 - 100 MG/DL Specimen Performing Laboratory [facility] [address] [place] [address] 99606 * POC GLUCOSE (01/22/2018 12:11 PM) Component Value Ref Range Glucose, POC 183 (H) 70 - 100 MG/DL Specimen Performing Laboratory [facility] [address] [place] [address] 42731 * POC GLUCOSE (01/22/2018 8:06 AM) Component Value Ref Range Glucose, POC 138 (H) 70 - 100 MG/DL Specimen Performing Laboratory [facility] [address] [place] [address] 77606 * POC GLUCOSE (01/22/2018 7:03 AM) Component Value Ref Range Glucose, POC 165 (H) 70 - 100 MG/DL Specimen Performing Laboratory [facility] [address] [place] [address] 48086 * POC GLUCOSE (01/22/2018 3:02 AM) Component Value Ref Range Glucose, POC 225 (H) 70 - 100 MG/DL Specimen Performing Laboratory [facility] [address] [place] [address] [address] * POC GLUCOSE (01/21/2018 9:46 PM) Component Value Ref Range Glucose, POC 179 (H) 70 - 100 MG/DL Specimen Performing Laboratory [facility] [address] [place], [place] [id number] * LACTIC ACID(LACTATE) (01/21/2018 9:30 PM) Component Value Ref Range Lactic Acid 1.4 0.5 - 2.0 MMOL/L Specimen Performing Laboratory [address] [address] * CULTURE-BLOOD W/SENSITIVITY (01/21/2018 5:42 PM) Component Value Ref Range Battery Name BLOOD CULTURE Specimen Description BLOOD LEFT FA Special Requests NONE Culture NO GROWTH 5 DAYS Report Status FINAL 01/27/2018 Specimen Performing Laboratory Blood [address] [address] * POC GLUCOSE (01/21/2018 4:55 PM) Component Value Ref Range Glucose, POC 243 (H) 70 - 100 MG/DL Specimen Performing Laboratory [facility] [address] [place], [place] [id number] * UA REFLEX CULTURE LABEL (01/21/2018 4:40 PM) Component Value Ref Range UA Reflex Culture LAB LABEL Specimen Performing Laboratory Urine [place] [id number] * URINALYSIS MICROSCOPIC REFLEX TO CULTURE (01/21/2018 [...] Specimen Performing Laboratory Urine MAIN LAB [address] [place] [address] * URINALYSIS DIPSTICK REFLEX TO CULTURE (01/21/2018 4:40 PM) Component Value Ref Range Color,UA YELLOW Turbidity,UA CLEAR CLEAR-CLEAR Specific [place]-Urine 1.018 1.003 - 1.035 pH,UA 6.0 5.0 [...] result. Specimen Performing Laboratory Urine MAIN LAB [address] [place] [address] * CULTURE-BLOOD W/SENSITIVITY (01/21/2018 4:35 PM) Component Value Ref Range Battery Name BLOOD CULTURE Specimen Description BLOOD RIGHT PICC LINE Special Requests NONE Culture NO GROWTH 5 DAYS Report Status FINAL 01/27/2018 Specimen Performing Laboratory Blood MAIN LAB [address] [place] [address] * ABDOMEN AP ONLY (01/21/2018 3:27 PM) [...] 100 MG/DL Specimen Performing Laboratory MAIN LAB [address] [place] [address] * POC GLUCOSE (01/21/2018 6:28 AM) Component Value Ref Range Glucose, POC 174 (H) 70 - 100 MG/DL Specimen Performing Laboratory MAIN LAB [address] [place] [address] * CBC CELLULAR THERAPEUTICS (01/21/2018 6:20 AM) [...] Specimen Performing Laboratory Blood [facility] [address] [place] [address] * BASIC METABOLIC PANEL CELLULAR THERAPEUTICS (01/21/2018 [...] Pharmacist for questions. Specimen Performing Laboratory Blood [facility] [address] [place] [address] * POC GLUCOSE (01/21/2018 3:35 AM) Component Value Ref Range Glucose, POC 256 (H) 70 - 100 MG/DL Specimen Performing Laboratory [facility] [address] [place] [address] * POC GLUCOSE (01/21/2018 3:02 AM) Component Value Ref Range Glucose, POC 50 (L) 70 - 100 MG/DL Specimen Performing Laboratory [facility] [address] [place] [address] * POC GLUCOSE (01/20/2018 9:02 PM) Component Value Ref Range Glucose, POC 167 (H) 70 - 100 MG/DL Specimen Performing Laboratory [facility] [address] [place] [address] * POC GLUCOSE (01/20/2018 5:00 PM) Component Value Ref Range Glucose, POC 164 (H) 70 - 100 MG/DL Specimen Performing Laboratory [facility] [address] [place] [address] * POC GLUCOSE (01/20/2018 11:58 AM) Component Value Ref Range Glucose, POC 199 (H) 70 - 100 MG/DL Specimen Performing Laboratory MAIN LAB [address] [place] [address] * POC GLUCOSE (01/20/2018 7:12 AM) Component Value Ref Range Glucose, POC 169 (H) 70 - 100 MG/DL Specimen Performing Laboratory [facility] [address] [place] [address] * POC GLUCOSE (01/20/2018 3:25 AM) Component Value Ref Range Glucose, POC 171 (H) 70 - 100 MG/DL Specimen Performing Laboratory [facility] [address] [place] [address] * POC GLUCOSE (01/20/2018 12:57 AM) Component Value Ref Range Glucose, POC 160 (H) 70 - 100 MG/DL Specimen Performing Laboratory [facility] [address] [place] [address] * POC GLUCOSE (01/19/2018 9:20 PM) Component Value Ref Range Glucose, POC 118 (H) 70 - 100 MG/DL Specimen Performing Laboratory [facility] [address] [place] [address] * POC GLUCOSE (01/19/2018 4:56 PM) Component Value Ref Range Glucose, POC 109 (H) 70 - 100 MG/DL Specimen Performing Laboratory [facility] [address] [place] [address] * POC GLUCOSE (01/19/2018 11:53 AM) Component Value Ref Range Glucose, POC 194 (H) 70 - 100 MG/DL Specimen Performing Laboratory [facility] [address] [place] [address] * POC GLUCOSE (01/19/2018 7:15 AM) Component Value Ref Range Glucose, POC 233 (H) 70 - 100 MG/DL Specimen Performing Laboratory [facility] [address] [place], [place] [address] * BASIC METABOLIC PANEL CELLULAR THERAPEUTICS (01/19/2018 [...] Pharmacist for questions. Specimen Performing Laboratory Blood [facility] [address] [place] [address] * CBC CELLULAR THERAPEUTICS (01/19/2018 5:30 AM) [...] - 11 FL Specimen Performing Laboratory Blood [facility] [address] [place], [place] [id number] * POC GLUCOSE (01/19/2018 3:17 AM) Component Value Ref Range Glucose, POC 218 (H) 70 - 100 MG/DL Specimen Performing Laboratory [facility] [address] [place] [address] * POC GLUCOSE (01/18/2018 8:59 PM) Component Value Ref Range Glucose, POC 192 (H) 70 - 100 MG/DL Specimen Performing Laboratory [facility] [address] [place] [address] * POC GLUCOSE (01/18/2018 4:58 PM) Component Value Ref Range Glucose, POC 270 (H) 70 - 100 MG/DL Specimen Performing Laboratory [facility] [address] [place] [address] * POC GLUCOSE (01/18/2018 12:06 PM) Component Value Ref Range Glucose, POC 161 (H) 70 - 100 MG/DL Specimen Performing Laboratory [facility] [address] [place] [address] * POC GLUCOSE (01/18/2018 6:53 AM) Component Value Ref Range Glucose, POC 180 (H) 70 - 100 MG/DL Specimen Performing Laboratory [facility] [address] [place] [address] * BASIC METABOLIC PANEL CELLULAR THERAPEUTICS (01/18/2018 [...] questions. Specimen Performing Laboratory Blood MAIN LAB [address] [place] [address] * CBC CELLULAR THERAPEUTICS (01/18/2018 6:01 AM) [...] FL Specimen Performing Laboratory Blood MAIN LAB [address] [place] [address] * POC GLUCOSE (01/18/2018 3:21 AM) Component Value Ref Range Glucose, POC 248 (H) 70 - 100 MG/DL Specimen Performing Laboratory MAIN LAB [address] [place] [address] * POC GLUCOSE (01/17/2018 9:00 PM) Component Value Ref Range Glucose, POC 136 (H) 70 - 100 MG/DL Specimen Performing Laboratory MAIN LAB [address] [place] [address] * POC GLUCOSE (01/17/2018 4:53 PM) Component Value Ref Range Glucose, POC 196 (H) 70 - 100 MG/DL Specimen Performing Laboratory [facility] [address] [place] [address] * PREALBUMIN (01/17/2018 1:11 PM) Component Value Ref Range Prealbumin 13.0 (L) 17 - 34 MG/DL Specimen Performing Laboratory Blood MAIN LAB [address] [place] [address] * ALBUMIN (01/17/2018 1:11 PM) Component Value Ref Range Albumin 2.6 (L) 3.5 - 5.0 G/DL Specimen Performing Laboratory Blood [facility] [address] [place] [address] * POC GLUCOSE (01/17/2018 12:31 PM) Component Value Ref Range Glucose, POC 141 (H) 70 - 100 MG/DL Specimen Performing Laboratory [facility] [address] [place] [address] * POC GLUCOSE (01/17/2018 11:45 AM) Component Value Ref Range Glucose, POC 157 (H) 70 - 100 MG/DL Specimen Performing Laboratory [facility] [address] [place] [address] * POC GLUCOSE (01/17/2018 6:44 AM) Component Value Ref Range Glucose, POC 167 (H) 70 - 100 MG/DL Specimen Performing Laboratory [facility] [address] [place] [address] * BASIC METABOLIC PANEL CELLULAR THERAPEUTICS (01/17/2018 [...] Pharmacist for questions. Specimen Performing Laboratory Blood [facility] [address] [place] [address] * CBC CELLULAR THERAPEUTICS (01/17/2018 5:30 AM) [...] - 11 FL Specimen Performing Laboratory Blood [facility] [address] [place] [address] * POC GLUCOSE (01/17/2018 3:01 AM) Component Value Ref Range Glucose, POC 181 (H) 70 - 100 MG/DL Specimen Performing Laboratory [facility] [address] [place] [address] * POC GLUCOSE (01/16/2018 9:08 PM) Component Value Ref Range Glucose, POC 145 (H) 70 - 100 MG/DL Specimen Performing Laboratory [facility] [address] [place] [address] * POC GLUCOSE (01/16/2018 4:50 PM) Component Value Ref Range Glucose, POC 149 (H) 70 - 100 MG/DL Specimen Performing Laboratory [facility] [address] [place] [address] * POC GLUCOSE (01/16/2018 12:04 PM) Component Value Ref Range Glucose, POC 168 (H) 70 - 100 MG/DL Specimen Performing Laboratory [facility] [address] [place] [address] * POC GLUCOSE (01/16/2018 6:36 AM) Component Value Ref Range Glucose, POC 209 (H) 70 - 100 MG/DL Specimen Performing Laboratory [facility] [address] [place] [address] * BASIC METABOLIC PANEL CELLULAR THERAPEUTICS (01/16/2018 [...] questions. Specimen Performing Laboratory Blood MAIN LAB [address] [place] [address] * CBC CELLULAR THERAPEUTICS (01/16/2018 5:30 AM) [...] FL Specimen Performing Laboratory Blood MAIN LAB [address] [place] [address] * POC GLUCOSE (01/16/2018 3:45 AM) Component Value Ref Range Glucose, POC 204 (H) 70 - 100 MG/DL Specimen Performing Laboratory MAIN LAB [address] [place] [address] * TRANSFUSE RBC'S NON-BLEEDING PT (01/15/2018 11:39 PM) Specimen Performing Laboratory Blood * TRANSFUSE RBC'S NON-BLEEDING PT (01/15/2018 11:39 PM) Specimen Performing Laboratory Blood * POC GLUCOSE (01/15/2018 8:23 PM) Component Value Ref Range Glucose, POC 193 (H) 70 - 100 MG/DL Specimen Performing Laboratory MAIN LAB [address] [place] [address] * POC GLUCOSE (01/15/2018 4:48 PM) Component Value Ref Range Glucose, POC 243 (H) 70 - 100 MG/DL Specimen Performing Laboratory MAIN LAB [address] [place] [address] * TYPE & CROSSMATCH (01/15/2018 3:00 PM) Component Value Ref Range Units Ordered 1 Crossmatch Expires 01/18/2018 Record Check FOUND ABO/RH(D) A POS Antibody Screen NEG Electronic Crossmatch YES Unit Number [id number] Blood Component Type RBC,ADSOL,LEUKO REDUCED Unit Division 0 Status OF Unit TRANSFUSED Transfusion Status OK TO TRANSFUSE Crossmatch Result COMPATIBLE,ELECTRONIC Specimen Performing Laboratory Blood MAIN LAB [address] [place] [address] * POC GLUCOSE (01/15/2018 11:53 AM) Component Value Ref Range Glucose, POC 165 (H) 70 - 100 MG/DL Specimen Performing Laboratory MAIN LAB [address] [place] [address] 31760 * POC GLUCOSE (01/15/2018 7:14 AM) Component Value Ref Range Glucose, POC 192 (H) 70 - 100 MG/DL Specimen Performing Laboratory [facility] [address] [place], [place] [id number] * BASIC METABOLIC PANEL CELLULAR THERAPEUTICS (01/15/2018 [...] questions. Specimen Performing Laboratory Blood MAIN LAB [address] [place] [address] * CBC CELLULAR THERAPEUTICS (01/15/2018 6:00 AM) [...] FL Specimen Performing Laboratory Blood MAIN LAB [address] [place] [address] 067[address] * POC GLUCOSE (01/15/2018 12:03 AM) Component Value Ref Range Glucose, POC 145 (H) 70 - 100 MG/DL Specimen Performing Laboratory MAIN LAB [address] [place] [address] * POC GLUCOSE (01/14/2018 9:14 PM) Component Value Ref Range Glucose, POC 103 (H) 70 - 100 MG/DL Specimen Performing Laboratory MAIN LAB [address] [place] [address]606 * POC GLUCOSE (01/14/2018 4:57 PM) Component Value Ref Range Glucose, POC 97 70 - 100 MG/DL Specimen Performing Laboratory MAIN LAB [address] [place] [address] in this encounter Visit Diagnoses Diagnosis Left hip amputation status - Primary Type 2 diabetes mellitus with hyperglycemia, unspecified whether termite control service representative insulin use (HCC) Acquired hypothyroidism Unspecified hypothyroidism [...] mg 11:04 CDT 2 mg, Intra-catheter, NEEDED (PHYSICAL GEOGRAPHER FROM RX), Starting 02/12/18 at 1040, Until [...]
--- OUTSIDE RECORDS SUMMARY | 2018-03-06 23:26 | XMS REPORT | Encounter Summary ---
Author Author [facility] Organization [facility] Address Unknown Phone Unavailable Care Team Providers Care Structural Biologist Name Role Phone Della Cuellar MD PCP Reason for Visit * Reason Comments Referral Encounter Details Date Type Department Care Team Description 02/28/2018 Documentation [facility] Cardi[facility] Sur[facility] [address] [place] [address] [place] [address] [place] [address] [phone] Social History Tobacco Use Types Packs/Day Years [...] Beata Kaiser : 1965 52 y/o Insurance: [facility] Appointment Info: To be seen prior [...] - inpt CTS consultation - Claudia Jorge, FUND CONTROLLER 12/13/17 - definitive surgery (L hemipelvectomy & [...] patient w/ tentative plan for DC home ([place], [place]) on 03/02/18 Dr. Skinner agreeable to seeing patient in Acute Rehab unit prior to her DC. 02/25/18 - CT chest - Several stable tiny pulmonary nodules are seen in both lungs; these are most likely scars or granulomas; new faint nodular tree-in-bud infiltrate in the right lung most compatible w/ minimal atypical pneumonitis; [id number] atelectasis in the right lung base. Prior Treatment (XRT, Surgery, Chemotherapy): Extensive (hemipelvectomy) surgery for chrondrosarcoma Comments: Patient lives in [place], [place]. Per notes/EMR, medical hx includes: depression; anxiety; DM; hypothyroidism; chronic pain; Inpatient social services assistant and family preservation caseworker continue to plan for discharge. Per notes, [...]
--- OUTSIDE RECORDS SUMMARY | 2018-03-06 23:26 | XMS REPORT | Encounter Summary ---
Author Author [facility] Organization [facility] Address Unknown Phone Unavailable Care Team Providers Care Bellstand Attendant Name Role Phone Della Cuellar MD PCP Reason for Referral * Radiology Services Status Reason Specialty Diagnoses / Referred By Referred To Procedures Contact Contact New Request Radiology Diagnoses ElliottBarbara, Chondrosarcoma PLAYGROUND MONITOR-DECKHAND SHRIMP BOAT (HCC) [address] [place] [address] rocedures Phone: CT CHEST W [phone] CONTRAST Encounter Details Date Type Department Care Team Description 03/01/2018 Orders Only [facility] & Kristina Pink RN Pulmonary nodules Cardiovascular Surgeons (Primary Dx); [address] Chondrosarcoma (HCC) [place] [address] Social History Tobacco Use Types [...]
--- OUTSIDE RECORDS SUMMARY | 2018-03-06 23:26 | XMS REPORT | Encounter Summary ---
Author Author [facility] Organization [facility] Address Unknown Phone Unavailable Care Team Providers Care Reverse Unit Operator Name Role Phone Della Cuellar MD PCP Reason for Visit * Reason Comments Hyperbaric Encounter Details Date Type Department Care Team Description 03/01/2018 Hospital Outpatient Burn and Wound Casey Schneider MD Encounter Clinic [address] [place] [address] [address] [place] [address] [phone] T Naga brown MD [address] [place] [address] [phone] Social History Tobacco Use Types Packs/Day Years [...] 03/02/2018 Units/ sodium bicarbonate feeding tube PRN (Communications Technician 650 mg(#) ([facility] CLOG from Rx) (Occluded [...]
--- OUTSIDE RECORDS SUMMARY | 2018-03-06 23:26 | XMS REPORT | Encounter Summary ---
Author Author [facility] Organization [facility] Address Unknown Phone Unavailable Care Team Providers Care Riprap Worker Name Role Phone Della Cuellar MD PCP Encounter Details Date Type Department Care Team Description 03/01/2018 Documentation [facility] Kenneth Menezes [address] [place] [address] [address] [address] [place] [address] Social History Tobacco Use Types Packs/Day Years [...] Kenneth Menezes - 03/01/2018 4:21 PM T [facility] Home Infusion - Benefits and Prior Authorization Billable Codes: [id number] (PA Submitted) Insurance Name: [facility] Phone #: [phone] Deductible: $500.00 Amount Met: $500.00 OOP: $2,000.00 Amount Met: $2,000.00 Coinsurance rate: 80% After OOP, policy pays at: 100% Patient is 100% covered but [facility] requires a Prior Authoization to be submitted for home infusion therapy. Pending PA # is [id number] Authorization Required: Yes - [facility] Phone #: [phone] Fax #: [phone] Pending Case # [id number] Pre-Determination Needed: Di Menezes [facility] Patient Emergency Management Consultant II Liason Referral [phone], [place] [address] in this encounter Plan of Treatment Date Type Specialty Care Team Description 03/01/2018 Procedure Pass Cardiothoracic Surgery as of this encounter Visit Diagnoses Not on filein this encounter
--- OUTSIDE RECORDS SUMMARY | 2018-03-06 23:27 | XMS REPORT | Encounter Summary ---
Author Author [facility] Organization [facility] Address Unknown Phone Unavailable Care Team Providers Care Info Analyst Name Role Phone Della Cuellar MD PCP Encounter Details Date Type Department Care Team Description 02/25/2018 Procedure Pass R ACUTE REHAB UNIT [address] [place] [address] Social History Tobacco Use Types Packs/Day Years [...]
--- OUTSIDE RECORDS SUMMARY | 2018-03-06 23:27 | XMS REPORT | Encounter Summary ---
Author Author [facility] Organization [facility] Address Unknown Phone Unavailable Care Team Providers Care Lotus Notes Developer Name Role Phone Della Cuellar MD PCP Reason for Visit * Reason Comments Hyperbaric Encounter Details Date Type Department Care Team Description 02/25/2018 Hospital Outpatient Burn and Wound Casey Schneider MD Encounter Clinic [address] [place] [address] [address] [place] [address] [phone] Vasu Lamb MD [address] [facility] [address] [place] [address] [phone] Social History Tobacco Use Types Packs/Day Years [...] 03/02/2018 Units/ sodium bicarbonate feeding tube PRN (Ticket Clerk 650 mg(#) (KU CLOG from Rx) ([place]ccluded [...]
--- OUTSIDE RECORDS SUMMARY | 2018-03-06 23:27 | XMS REPORT | Encounter Summary ---
Author Author [facility] Organization [facility] Address Unknown Phone Unavailable Care Team Providers Care Equipment Man Name Role Phone Della Cuellar MD PCP Reason for Visit * Reason Comments Hyperbaric Encounter Details Date Type Department Care Team Description 02/28/2018 Hospital Outpatient Burn and Wound Casey Schneider MD Encounter Clinic [address] [place] [address] [address] [place] [address] [phone] Aron Matthews MD [address] [place] [address] [phone] Social History Tobacco Use Types Packs/Day Years [...] 03/02/2018 Units/ sodium bicarbonate feeding tube PRN (Call Center Receptionist 650 mg(#) (KU CLOG from Rx) (Occluded [...]
--- OUTSIDE RECORDS SUMMARY | 2018-03-06 23:28 | XMS REPORT | Encounter Summary ---
Author Author [facility] Organization [facility] Address Unknown Phone Unavailable Care Team Providers Care Payable Manager Name Role Phone Della Cuellar MD PCP Reason for Visit * Reason Comments Hyperbaric Encounter Details Date Type Department Care Team Description 02/23/2018 Hospital Outpatient Burn and Wound Casey Schneider MD Encounter Clinic [address] [place] [address] [address] [place] [address] [phone] Ike Vines, DO [address] [place] [address] [phone] Social History Tobacco Use Types Packs/Day Years [...] 03/02/2018 Units/ sodium bicarbonate feeding tube PRN (Program Eligibility Specialist 650 mg(#) (KU CLOG from Rx) (Occluded [...]
--- OUTSIDE RECORDS SUMMARY | 2018-03-06 23:28 | XMS REPORT | Encounter Summary ---
Author Author [facility] Organization [facility] Address Unknown Phone Unavailable Care Team Providers Care Ranch Hand Livestock Name Role Phone Della Cuellar MD PCP Reason for Visit * Reason Comments Hyperbaric Encounter Details Date Type Department Care Team Description 02/24/2018 Hospital Outpatient Burn and Wound Casey Schneider MD Encounter Clinic [address] [facility] [place] [address] [address] [place] [address] [phone] C Cristino lim MD [address] [place] [address] [phone] Social History Tobacco Use Types Packs/Day Years [...] 03/02/2018 Units/ sodium bicarbonate feeding tube PRN (Restaurant Shift Supervisor 650 mg(#) (KU CLOG from Rx) (Occluded [...]
--- OUTSIDE RECORDS SUMMARY | 2018-03-06 23:28 | XMS REPORT | Encounter Summary ---
Author Author [facility] Organization [facility] Address Unknown Phone Unavailable Care Team Providers Care Regional Cra Name Role Phone Della Cuellar MD PCP Reason for Visit * Reason Comments Hyperbaric Encounter Details Date Type Department Care Team Description 02/22/2018 Hospital Outpatient Burn and Wound Casey Schneider MD Encounter Clinic [address] [place] [address] [address] [place] [address] [phone] Aron Matthews MD [address] [place] [address] [phone] Social History Tobacco Use Types Packs/Day Years [...] 03/02/2018 Units/ sodium bicarbonate feeding tube PRN (Driver Guard 650 mg(#) (KU CLOG from Rx) (Occluded [...]
--- OUTSIDE RECORDS SUMMARY | 2018-03-06 23:29 | XMS REPORT | Encounter Summary ---
Author Author [facility] Organization [facility] Address Unknown Phone Unavailable Care Team Providers Care Apprentice Plant Attendant Name Role Phone Della Cuellar MD PCP Reason for Visit * Reason Comments Hyperbaric Encounter Details Date Type Department Care Team Description 02/18/2018 Hospital Outpatient Burn and Wound Casey Schneider MD Encounter Clinic [address] [place] [address] [address] [place] [address] [phone] Aron Matthews MD [address] [place] [address] [phone] Social History Tobacco Use Types Packs/Day Years [...] 03/02/2018 Units/ sodium bicarbonate feeding tube PRN (Vascular Manager 650 mg(#) (KU CLOG from Rx) [...]
--- OUTSIDE RECORDS SUMMARY | 2018-03-06 23:29 | XMS REPORT | Encounter Summary ---
Author Author [facility] Organization [facility] Address Unknown Phone Unavailable Care Team Providers Care Attorney Law Clerk Name Role Phone Della Cuellar MD PCP Reason for Visit * Reason Comments Wound Dehiscence Encounter Details Date Type Department Care Team Description 02/21/2018 Hospital Outpatient Burn and Wound Casey Schneider MD Encounter Clinic [address] [place] [address] [address] [place] [address] [phone] C Cristino lim MD [address] [place] [address] [phone] Social History Tobacco Use Types Packs/Day Years [...] 03/02/2018 Units/ sodium bicarbonate feeding tube PRN (Recenterer 650 mg(#) (KU CLOG from Rx) (Occluded [...]
--- OUTSIDE RECORDS SUMMARY | 2018-03-06 23:29 | XMS REPORT | Encounter Summary ---
Author Author [facility] Organization [facility] Address Unknown Phone Unavailable Care Team Providers Care Bacteriologist Soil Name Role Phone Della Cuellar MD PCP Reason for Visit * Reason Comments Hyperbaric Encounter Details Date Type Department Care Team Description 02/17/2018 Hospital Outpatient Burn and Wound Casey Schneider MD Encounter Clinic [address] [place] [address] [address] [place] [address] [phone] T Naga brown MD [address] [place] [address] [phone] Social History Tobacco Use Types Packs/Day Years [...] 03/02/2018 Units/ sodium bicarbonate feeding tube PRN (Product Applications Scientist 650 mg(#) ([facility] CLOG from Rx) ([place]ccluded [...]
--- OUTSIDE RECORDS SUMMARY | 2018-03-06 23:30 | XMS REPORT | Encounter Summary ---
Author Author [facility] Organization [facility] Address Unknown Phone Unavailable Care Team Providers Care Can Worker Name Role Phone Della Cuellar MD PCP Reason for Visit * Reason Comments Hyperbaric Encounter Details Date Type Department Care Team Description 02/16/2018 Hospital Outpatient Burn and Wound Casey Schneider MD Encounter Clinic [address] [place] [address] [address] [place] [address] [phone] Ike Vines, DO [address] [place] [address] [phone] Social History Tobacco Use Types Packs/Day Years [...] 03/02/2018 Units/ sodium bicarbonate feeding tube PRN (Blanking Press Operator 650 mg(#) (KU CLOG from Rx) [...]
--- OUTSIDE RECORDS SUMMARY | 2018-03-06 23:30 | XMS REPORT | Encounter Summary ---
Author Author [facility] Organization [facility] Address Unknown Phone Unavailable Care Team Providers Care Environmental Aide Name Role Phone Della Cuellar MD PCP Reason for Visit * Reason Comments Hyperbaric Encounter Details Date Type Department Care Team Description 02/10/2018 Hospital Outpatient Burn and Wound Casey Schneider MD Encounter Clinic [address] [facility] [place] [address] [address] [place] [address] [phone] T Naga brown MD [address] [place] [address] [phone] Social History Tobacco Use Types Packs/Day Years [...] 03/02/2018 Units/ sodium bicarbonate feeding tube PRN (Assistant Public Defender 650 mg(#) (K[facility] CLOG from Rx) ([place] [...]
--- OUTSIDE RECORDS SUMMARY | 2018-03-06 23:30 | XMS REPORT | Encounter Summary ---
Author Author [facility] Organization [facility] Address Unknown Phone Unavailable Care Team Providers Care Parcel Post Delivery Name Role Phone Della Cuellar MD PCP Reason for Visit * Reason Comments Hyperbaric Encounter Details Date Type Department Care Team Description 02/09/2018 Hospital Outpatient Burn and Wound Casey Schneider MD Encounter Clinic [address] [place] [address] [address] [place] [address] [phone] Ike Vines, DO [address] [place] [address] [phone] Social History Tobacco Use Types Packs/Day Years [...] 03/02/2018 Units/ sodium bicarbonate feeding tube PRN (Transmission Worker 650 mg(#) ([facility] CLOG from Rx) [...]
--- OUTSIDE RECORDS SUMMARY | 2018-03-06 23:30 | XMS REPORT | Encounter Summary ---
Author Author [facility] Organization [facility] Address Unknown Phone Unavailable Care Team Providers Care Tipple Engineer Name Role Phone Della Cuellar MD PCP Reason for Visit * Reason Comments Hyperbaric Encounter Details Date Type Department Care Team Description 02/15/2018 Hospital Outpatient Burn and Wound Casey Schneider MD Encounter Clinic [address] [address] [address] [place] [address] [phone] Aron Matthews MD [address] [place] [address] [phone] Social History Tobacco Use Types Packs/Day Years [...] 03/02/2018 Units/ sodium bicarbonate feeding tube PRN (Instruction Dean 650 mg(#) (KU CLOG from Rx) ([place]cluded [...]
--- OUTSIDE RECORDS SUMMARY | 2018-03-06 23:31 | XMS REPORT | Encounter Summary ---
Author Author [facility] Organization [facility] Address Unknown Phone Unavailable Care Team Providers Care Aed Trainer Name Role Phone Della Cuellar MD PCP Reason for Visit * Reason Comments Hyperbaric Encounter Details Date Type Department Care Team Description 02/04/2018 Hospital Outpatient Burn and Wound Tamiko Luther MD Encounter Clinic [address] [place] [address] [place] [address] [phone] C Cristino lim MD [address] [facility] [address] [place] [address] [phone] Social History Tobacco Use Types Packs/Day Years [...] 03/02/2018 Units/ sodium bicarbonate feeding tube PRN (Vp Securities 650 mg(#) ([facility]U CLOG from Rx) ([place]cluded [...]
--- OUTSIDE RECORDS SUMMARY | 2018-03-06 23:31 | XMS REPORT | Encounter Summary ---
Author Author [facility] Organization [facility] Address Unknown Phone Unavailable Care Team Providers Care Learning Facilitator Name Role Phone Della Cuellar MD PCP Reason for Visit * Reason Comments Hyperbaric Encounter Details Date Type Department Care Team Description 02/08/2018 Hospital Outpatient Burn and Wound Casey Schneider MD Encounter Clinic [address] [place] [address] [address] [place] [address] [phone] Aron Matthews MD [address] [place] [address] [phone] Social History Tobacco Use Types Packs/Day Years [...] 03/02/2018 Units/ sodium bicarbonate feeding tube PRN (Wheel Grinder 650 mg(#) (KU CLOG from Rx) ([place]ccluded [...]
--- OUTSIDE RECORDS SUMMARY | 2018-03-06 23:31 | XMS REPORT | Encounter Summary ---
Author Author [facility] Organization [facility] Address Unknown Phone Unavailable Care Team Providers Care Bookmobile Clerk Name Role Phone Della Cuellar MD PCP Reason for Visit * Reason Comments Hyperbaric Encounter Details Date Type Department Care Team Description 02/07/2018 Hospital Outpatient Burn and Wound Casey Schneider MD Encounter Clinic [address] [place] [address] [address] [place] [address] [phone] Aron Matthews MD [address] [place] [address] [phone] Social History Tobacco Use Types Packs/Day Years [...] 03/02/2018 Units/ sodium bicarbonate feeding tube PRN (Novelty Candy Maker 650 mg(#) ([facility] CLOG from Rx) ([place]ccluded [...]
--- OUTSIDE RECORDS SUMMARY | 2018-03-06 23:32 | XMS REPORT | Encounter Summary ---
Author Author [facility] Organization [facility] Address Unknown Phone Unavailable Care Team Providers Care Underwriting Assistant Name Role Phone Della Cuellar MD PCP Reason for Visit * Auth/Cert Status Reason Specialty Diagnoses / Referred By Referred To Procedures Contact Contact Diagnoses Acquired absence of left hip joint Encounter Details Date Type Department Care Team Description 02/01/2018 Hospital Outpatient Burn and Wound Casey Schneider MD Encounter Clinic [address] [facility] [address] [facility] [place] [address] [address] [place] [address] [phone] V Ramos mendoza MD [address] [place] [address] [phone] Social History Tobacco Use Types Packs/Day Years [...] 03/02/2018 Units/ sodium bicarbonate feeding tube PRN (Vinyl Installer 650 mg(#) ([facility] CLOG from Rx) [...]
--- OUTSIDE RECORDS SUMMARY | 2018-03-06 23:32 | XMS REPORT | Encounter Summary ---
Author Author [facility] Organization [facility] Address Unknown Phone Unavailable Care Team Providers Care Voltage Regulator Assembler Name Role Phone Della Cuellar MD PCP Reason for Visit * Reason Comments Hyperbaric Encounter Details Date Type Department Care Team Description 02/03/2018 Hospital Outpatient Burn and Wound Tamiko Luther MD Encounter Clinic [address] [place] [address] [place] [address] [phone] Naga Bush MD [address] [facility] [address] [place] [address] [phone] Social History Tobacco Use Types Packs/Day Years [...] 03/02/2018 Units/ sodium bicarbonate feeding tube PRN (Service Engine Repairer 650 mg(#) ([facility] CLOG from Rx) ([place]ccluded [...]
--- OUTSIDE RECORDS SUMMARY | 2018-03-06 23:32 | XMS REPORT | Encounter Summary ---
Author Author [facility] Organization [facility] Address Unknown Phone Unavailable Care Team Providers Care Motor Equipment Sergeant Name Role Phone Della Cuellar MD PCP Reason for Visit * Reason Comments Hyperbaric Encounter Details Date Type Department Care Team Description 02/02/2018 Hospital Outpatient Burn and Wound Casey Schneider MD Encounter Clinic [address] [place] [address] [address] [place] [address] [phone] Ike Vines, DO [address] [place] [address] [phone] Social History Tobacco Use Types Packs/Day Years [...] 03/02/2018 Units/ sodium bicarbonate feeding tube PRN (Human Capital Analyst 650 mg(#) ([facility] CLOG from Rx) ([place]ccluded [...]
--- OUTSIDE RECORDS SUMMARY | 2018-03-06 23:33 | XMS REPORT | Encounter Summary ---
Author Author [facility] Organization [facility] Address Unknown Phone Unavailable Care Team Providers Care Sorter Packer Name Role Phone Della Cuellar MD PCP Reason for Referral * (Routine) Status Reason Specialty Diagnoses / Referred By Referred To Procedures Contact Contact New Request Diagnoses Casey Schneider MD Failure of [address] [place] [address] rocedures Phone: [facility] [phone] MEDICINE ORDER Reason for Visit * Reason Comments Hyperbaric * Auth/Cert Status Reason Specialty Diagnoses / Referred By Referred To Procedures Contact Contact Diagnoses Acquired absence of left hip joint Encounter Details Date Type Department Care Team Description 01/31/2018 Hospital Outpatient Burn and Wound Casey Schneider MD Encounter Clinic [address] [place] [address] [address] [place] [address] [phone] C Cristino lim MD [address] [place] [address] [phone] Social History Tobacco Use Types Packs/Day Years [...] ? Hairspray/Hair products/Hair extensions ? Make up/Lip [place] ? Perfume ? Body lotion ? Fresh Nail urdu Jewelry ? Watches/Rings/Necklaces ? Earrings ? Body piercings Medication Patches ? Nicotine/ Hormone/Pain/ Control Electronic Devices ? Cell phone ? Pager ? Video game ? IPOD/DVD Player/E[place]/IPAD/Laptop Other ? Hearing aids ? Dentures ? Batteries ? Metal Objects ? Car keys Tobacco Products ? Cigarettes/Cigars/Pipes ? Electric Repair Supervisor/Matches ? Chewable tobacco products and pouches Clothing [...] the chamber with patient Special Considerations Implanted emergency medical technician/driver serial numbers will be cross checked for [...] ? Identify barriers of learning. o Involve Army Manager if indicated o Apply age-specific teaching o Consider cultural/baptism factors o Assess readiness to learn ? [...] 03/02/2018 Units/ sodium bicarbonate feeding tube PRN (Computerized Machine Fabric Cutter 650 mg(#) ([facility] CLOG from Rx) ([place]cluded [...]
--- OUTSIDE RECORDS SUMMARY | 2018-03-06 23:33 | XMS REPORT | Encounter Summary ---
Author Author [facility] Organization [facility] Address Unknown Phone Unavailable Care Team Providers Care Credit Administration Officer Name Role Phone Della Cuellar MD PCP Encounter Details Date Type Department Care Team Description 01/14/2018 Pharmacy Visit [facility] [id number] [place] [address] Social History Tobacco Use Types Packs/Day Years [...]
--- OUTSIDE RECORDS SUMMARY | 2018-03-06 23:33 | XMS REPORT | Encounter Summary ---
Author Author [facility] Organization [facility] Address Unknown Phone Unavailable Care Team Providers Care Community Health Promoter Name Role Phone Della Cuellar MD PCP Encounter Details Date Type Department Care Team Description 01/14/2018 Pharmacy Visit [facility] [address] [place] [address] Social History Tobacco Use Types Packs/Day Years [...]
--- OUTSIDE RECORDS SUMMARY | 2018-03-06 23:38 | XMS REPORT | Encounter Summary ---
Author Author [facility] Organization [facility] Address Unknown Phone Unavailable Care Team Providers Care Manager Project Name Role Phone Della Cuellar MD PCP Reason for Visit * Auth/Cert Status Reason Specialty Diagnoses / Referred By Referred To Procedures Contact Contact Diagnoses Pelvic mass Pelvic mass [R19.00] Pelvic mass in female P rocedures CO INTERPELVIABDOMI NAL AMPUTATION CHEY PELVECTOMY Encounter Details Date Type Department Care Team Description 01/10/2018 Anesthesia Main Operating Room Sam Posadas MD Event [address] [facility] [address] [place] [address] [address] [place] [address] [phone] Anesthesia Record Procedure Name Responsible Anesthesia Start [...] 12/30/17; 1722; Other (Comment), 12/30/17 1722 by Socrtaes, 02/18/18 1750 by Mina, Double Med/Surg (Unit [...] SANJAY Velasquez RN, Lindsey, RN Therapy and cupola charger insulation); 1238 Drain in this encounter Social History [...]
--- OUTSIDE RECORDS SUMMARY | 2018-03-06 23:38 | XMS REPORT | Encounter Summary ---
Author Author [facility] Organization [facility] Address Unknown Phone Unavailable Care Team Providers Care Grid Maker Name Role Phone Della Cuellar MD PCP Encounter Details Date Type Department Care Team Description 01/10/2018 Procedure Pass Main Operating Room [address] [place] [address] Social History Tobacco Use Types Packs/Day Years [...]
--- OUTSIDE RECORDS SUMMARY | 2018-03-06 23:46 | XMS REPORT | Encounter Summary ---
Author Author [facility] Organization [facility] Address Unknown Phone Unavailable Care Team Providers Care User Interface Designer Name Role Phone Della Cuellar MD PCP Encounter Details Date Type Department Care Team Description 01/07/2018 Prep for Case ADMITTING Adrienne Zarate MD Chondrosarcoma ( [facility]) [address] (Primary Dx) [place] [address] [place] [address] Social History Tobacco Use Types Packs/Day Years [...]
--- OUTSIDE RECORDS SUMMARY | 2018-03-06 23:46 | XMS REPORT | Encounter Summary ---
Author Author [facility] Organization [facility] Address Unknown Phone Unavailable Care Team Providers Care Hydrate Thickener Operator Name Role Phone Della Cuellar MD PCP Encounter Details Date Type Department Care Team Description 01/06/2018 Procedure [facility] [address] [place] [address] Social History Tobacco Use Types Packs/Day Years [...]
--- OUTSIDE RECORDS SUMMARY | 2018-03-06 23:46 | XMS REPORT | Encounter Summary ---
Author Author [facility] Organization [facility] Address Unknown Phone Unavailable Care Team Providers Care Valet Name Role Phone Della Cuellar MD PCP Reason for Visit * Auth/Cert Status Reason Specialty Diagnoses / Referred By Referred To Procedures Contact Contact Diagnoses Pelvic mass Pelvic mass [R19.00] Pelvic mass in female P rocedures OR INTERPELVIABDOMI NAL AMPUTATION JAMIL PELVECTOMY Encounter Details Date Type Department Care Team Description 01/10/2018 Surgery Main Operating Room Tamiko Luther MD WOUND EXPLORATION LEFT [address] HEMIPELVECTOMY, [place] [address] [address] AND [phone] [place] [address] DEBRIDEMENT, WOUND VAC [phone] PLACEMENT Social History Tobacco Use Types Packs/Day [...] 4:30 PM) Call the Orthopedic clinic at [phone] AFTER BUSINESS HOURS AND WEEKENDS Call [phone] and ask the refinery operator vapor recovery unit to page the on-call Orthopedic Resident. Discharging attending physician: TAMIKO LUTHER [[id number]] Diabetic Diet Recommend high protein diet for [...] home, you can call a dietitian at [phone]. Tube Feeding Formula: Isosource 1.5 Schedule: Continuous [...] Wednesday wound vac changes. Tunneled Catheter Line [facility] Care Instructions: The bandage over the catheter [...] Take 1 capsule via feeding tube PRN (Building Carpenter Helper from Rx) ( Occluded Feeding Tube). PRESCRIPTION [...] as indicated above. Adrienne Zarate MD Pager [phone] 01/16/2018 cc: Primary Care Physician: Verified Referring [...] Units/ sodium bicarbonate feeding tube PRN (Building Carpenter Helper 650 mg(#) (KU CLOG from Rx) (Occluded [...] complete: Yes Report called and given to music rehabilitation therapist. * Adrienne Zarate MD - 01/14/2018 2:44 [...] recs- recommend [facility] [place] -Psych, WATER USE INSPECTOR psych and psychology consults for coping, depression - appreciate assistance -Endocrine consult for blood sugar management - appreciate recs -ID consult - Ertapenem, micafungin -Nutrition following for optimization -General Surgery consult - colostomy 12/30 Dispo: Plan for DC today to [facility] Adrienne Zarate MD [id number] * Sofía Centeno - 01/14/2018 2:03 PM CDT I have reviewed the students documentation and agree with it. Tita Centeno MSN/MHA RN CCRN Forest Botany Instructor - [facility] * Chari Moon - 01/14/2018 2:00 PM [...] Cognitive Status: Alert;Cooperative Persons Present: Father;Mother (Supervising RED LEADER, RED LEADER student) Pain: Patient complains of pain Pain [...] g/kg desired wt.) Oral Diet Order: Diabetic 0258-2367 Kcal/day (60 g Carb/meal, 30 g Carb/HS snack ) Oral Supplement: Nebo Breakfast Essentials No Sugar Added Current EN Order: Nutren 1.5 @ 75ml/hr x's 6 hrs from 9292-9309, 3 ProSource/ day (At goal will provide: [...] for dc today to rehab. Recommendation: Continue 2777-2485 Consistent Carb Diet. Continue Nutren 1.5 @ [...] Throughout Stay Status: Ongoing Emma See, RD #[id number]. * Sofía Centeno - 01/14/2018 11:54 AM CDT I have reviewed the students documentation and agree with it. Tita Centeno MSN/MHA RN CCRN Forest Botany Instructor - [facility] * Nani Lynch DO - 01/14/2018 11:30 [...] Lynch DO Division of Infectious Diseases Pager [phone] Interval History Afebrile, vitals stable. Feeling "ok" [...] 20,000 Units/ sodium bicarbonate 650 mg(#) PRN (Building Carpenter Helper from Rx), simethicone Q6H PRN Physical Examination [...] Pertinent radiology reviewed Nani Lynch DO Pager [phone] ID * Nani Mcelroy RN - 01/14/2018 [...] Moist;Red;Gallardo;Yellow 01/14/2018 11:00 AM Surrounding Skin Assessment Excoriated;[place];Edema 01/14/2018 11:00 AM Wound Drainage Amount Large [...] BSN Wound Ostomy Nursing Consult Service Office: [phone] Pager: [phone] After hours Wound/Ostomy team pager : [phone] * Lexus Shirlye, OT - 01/14/2018 10:00 AM CDT Formatting of this note may be different from the original. OCCUPATIONAL THERAPY PROGRESS NOTE Patient Name: Beata Kaiser Room/Bed: [place] [address] Admitting Diagnosis: Pelvic mass [R19.00] Pelvic mass [...] tub and ramps. 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 [place] Recommendations: [facility] [place] Additional Information: Recommend ongoing assistance for: Transfers, Bed mobility, Dressing, Bathing, Toileting Therapist: SACHA Nath/Tapan [id number] Date: 01/14/2018 * Linus Pisano MD - 01/14/2018 9:49 AM CDT Formatting of this note may be different from the original. Endocrinology Hospital Follow Up Visit Today's Date: 01/14/2018 Admission Date: 12/13/2017 Assessment: 1. DM type 2 with stress hyperglycemia A1c 6.5 , controlled RED LEADER regimen: Metformin thousand milligrams twice a day, jardiance 25 mg daily Hypoglycemic episodes on this regimen: None and not checking blood sugars at home Follows up with for diabetes management: Primary care physician at [facility] Diabetic-complications assessment: Retinopathy: None Peripheral neuropathy: Yes on treatment Autonomic neuropathy: None Nephropathy: None Macrovascular complications: None Risk factor assessment: Last lipid profile - None on file On ACEi/ARB: Yes On Statin: yes 2. Hypothyroidism RED LEADER 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 daily TSH 2.1 [...] 20,000 Units/ sodium bicarbonate 650 mg(#) PRN (Building Carpenter Helper from Rx), simethicone Q6H PRN Physical Examination [...] 01:40 PM No results found for: FREET3, [id number], THYBINDGLB Kalie Sibley, Endocrine fellow Pager [phone] * Nani Lynch, [...] Nani Lynch, Division of Infectious Diseases Pager [phone] Interval History Afebrile, vitals stable. ROS - [...] 20,000 Units/ sodium bicarbonate 650 mg(#) PRN (Building Carpenter Helper from Rx), simethicone Q6H PRN Physical Examination [...] Pertinent radiology reviewed Chari Pedro DO Pager [phone] ID fellow * Adrienne Zarate MD - [...] recs- recommend [facility] [place] -Psych, WATER USE INSPECTOR psych and psychology consults for coping, depression - appreciate assistance -Endocrine consult for blood sugar management - appreciate recs -ID consult - Ertapenem, micafungin -Nutrition following for optimization -General Surgery consult - colostomy 12/30 Dispo: Plan for DC Wednesday to Rehab Adrienne Zarate MD [id number] * Lexus Shirley, OT - 01/13/2018 10:59 AM CDT Formatting of this note may be different from the original. OCCUPATIONAL THERAPY PROGRESS NOTE Patient Name: Beata Kaiser Room/Bed: [place] [address] Admitting Diagnosis: Pelvic mass [R19.00] Pelvic mass [...] tub and ramps. 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[employer]) ADL's Where Assessed: Edge of Bed Equipment Provided: Wetland Scientist;Sock Aid Grooming Assist: Stand By Assist Grooming [...] mobility, Dressing, Bathing, Toileting Therapist: SACHA Nath/Tapan [id number] Date: 01/13/2018 * Arnaldo Delacruz MD - [...] Beata Kaiseris a 52 y.o.female[facility] following issues: S/p hemipelvectomy for left pelvic chondrosarcoma Impairments: amputation (lower extremity), pain and poor activity tolerance Activity Limitations: grooming, bathing, dressing - lower, toileting, bladder control, transfers, ambulation and stairs Participation Restrictions: unable to return home safely This is a follow up visit from initial consultation performed on 12/27/2017 Beata Kaiser is a 52 yo F who presented to [facility] on 12/13/17 for scheduled left hemipelvectomy for [...] of bed. Pt supine at OT departure. RECREATION FACILITY MANAGER COGNITIVE EVALUATION SUMMARY PRAGMATICS: BEHAVIOR: AUDITORY COMPREHENSION: [...] 20,000 Units/ sodium bicarbonate 650 mg(#) PRN (Building Carpenter Helper from Rx), simethicone Q6H PRN Objective Vital [...] Stool Occurrence: 1 Oral Diet Order: Diabetic 0402-8397 Kcal/day (60 g Carb/meal, 30 g Carb/HS [...] with stress hyperglycemia A1c 6.5 , controlled RED LEADER regimen: Metformin thousand milligrams twice a day, jardiance 25 mg daily Hypoglycemic episodes on this regimen: None and not checking blood sugars at home Follows up with for diabetes management: Primary care physician at [facility]-complications assessment: Retinopathy: None Peripheral neuropathy: Yes on treatment Autonomic neuropathy: None Nephropathy: None Macrovascular complications: None Risk factor assessment: Last lipid profile - None on file On ACEi/ARB: Yes On Statin: yes 2. Hypothyroidism RED LEADER 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 daily TSH 2.1 [...] 20,000 Units/ sodium bicarbonate 650 mg(#) PRN (Building Carpenter Helper from Rx), simethicone Q6H PRN Physical Examination [...] 01:40 PM No results found for: FREET3, [id number], THYBINDGLB Kalie Sibley, Endocrine fellow Pager [phone] * Lynn Barrera - 01/12/2018 3:40 PM [...] with stress hyperglycemia A1c 6.5 , controlled RED LEADER regimen: Metformin thousand milligrams twice a day, jardiance 25 mg daily Hypoglycemic episodes on this regimen: None and not checking blood sugars at home Follows up with for diabetes management: Primary care physician at [facility] Diabetic-complications assessment: Retinopathy: None Peripheral neuropathy: Yes on treatment Autonomic neuropathy: None Nephropathy: None Macrovascular complications: None Risk factor assessment: Last lipid profile - None on file On ACEi/ARB: Yes On Statin: yes 2. Hypothyroidism RED LEADER 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 daily TSH 2.1 [...] 20,000 Units/ sodium bicarbonate 650 mg(#) PRN (Building Carpenter Helper from Rx), simethicone Q6H PRN Physical Examination [...] 01:40 PM No results found for: FREET3, [id number], THYBINDGLB Kalie Sibley, Endocrine fellow Pager [phone] * SaraiChari - 01/12/2018 2:08 PM CDT [...] Status: Alert;Cooperative;Oriented Persons Present: Nursing Staff (Supervising RED LEADER) Pain: Patient complains of pain Pain Location: [...] Lynch DO Division of Infectious Diseases Pager [phone] Interval History Afebrile, vitals stable. Pt is [...] 20,000 Units/ sodium bicarbonate 650 mg(#) PRN (Building Carpenter Helper from Rx), simethicone Q6H PRN Physical Examination [...] Pertinent radiology reviewed Chari Pedro DO Pager [phone] ID fellow * Jasper Betts RN - 01/12/2018 12:35 PM CDT Inpatient Pain Management Nurses - Clinical [facility] - Follow -Up Primary [...] Used 2 doses of fentanyl IV 50 pan=266 mcg ~ 10 mg Please call with questions/concerns. Jasper Betts, MSN, RN- Clinical Nurse Coordinator Pain Management [phone] Team pager [phone] * Pancho De Souza, PhD - 01/12/2018 12:29 PM CDT Formatting of this note may be different from the original. Psychology Consult Service ([phone]) Beata Kaiser is a 52 year-old female [...] 52 year old female. She is from [place] and currently lives in [place]. 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 She is and has 3 children. She currently lives with her family in [place], [place]. MSE: 52 year-old female, supine in [...] questions or concerns. Pancho De Souza, PhD [phone] Licensed Psychologist Department of Psychiatry and Behavioral [...] recs- recommend [facility] [place] -Psych, WATER USE INSPECTOR psych and psychology consults for coping, depression - appreciate assistance -Endocrine consult for blood sugar management - appreciate recs -ID consult - Zosyn, micafungin -Nutrition following for optimization -General Surgery consult - colostomy 12/30 Dispo: Plan for likely DC Wednesday to Rehab pending tolerating wound vac changes Adrienne Zarate MD 4607 * Lexus Shirley, OT - 01/12/2018 9:58 AM CDT Formatting of this note may be different from the original. OCCUPATIONAL THERAPY PROGRESS NOTE Patient Name: Beata Kaiser Room/Bed: HO4327/01 Admitting Diagnosis: Pelvic mass [R19.00] Pelvic mass [...] tub and ramps. 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 Equipment Recommendations: [facility] [place] Additional Information: Recommend ongoing assistance for: Transfers, Dressing, Bathing, Toileting Therapist: Lexus Shirley, OTR/L [id number] Date: 01/12/2018 * Adrienne Zarate MD - [...] recs- recommend [facility] [place] -Psych, WATER USE INSPECTOR psych and psychology consults for coping, depression - appreciate assistance -Endocrine consult for blood sugar management - appreciate recs -ID consult - Zosyn, micafungin -Nutrition following for optimization -General Surgery consult - colostomy 12/30 Dispo: Plan for possible DC Wednesday to Rehab pending tolerating wound vac changes Adrienne Zarate MD [id number] * Hugh Quintana MD - 01/11/2018 9:31 [...] between 8am and 3pm on weekends at [phone]. Otherwise, page the university relations vice president digital content specialist. Subjective: Beata Kaiser is seen for routine [...] Units / sodium bicarbonate 650 mg(#) PRN (Building Carpenter Helper from Rx), simethicone Q6H PRN 80 mg [...] 20,000 Units/ sodium bicarbonate 650 mg(#) PRN (Building Carpenter Helper from Rx), simethicone Q6H PRN Physical Examination [...] g/kg desired wt.) Oral Diet Order: Diabetic 7880-7009 Kcal/day (60 g Carb/meal, 30 g Carb/HS snack ) Oral Supplement: Nebo Breakfast Essentials No Sugar Added Intake (calories) Daily Average : 1332 kilocalories (80% yesterday) Intake (protein) Daily Average : 85 grams (70-85% needs yesterday.) Current EN Order: Nutren 1.5 @ 75ml/hr x's 12 hrs (0352-5622) + 2 Liquid ProSource/day (At goal provides: [...] was given steroid during surgery. Recommendation: Continue 5470-6170 Consistent Carb Diet. Continue SF CIB with [...] Throughout Stay Status: Ongoing Emma See, RD #[id number]. * Lexus Shirley, OT - 01/11/2018 11:52 AM CDT Formatting of this note may be different from the original. OCCUPATIONAL THERAPY PROGRESS NOTE Patient Name: Beata Kaiser Room/Bed: [id number]/ Admitting Diagnosis: Pelvic mass [R19.00] Pelvic mass [...] tub and ramps. 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 Equipment Recommendations: [facility] [place] Additional Information: Recommend ongoing assistance for: Transfers, Dressing, Bathing, Toileting Therapist: SACHA Nath/Tapan [id number] Date: 01/11/2018 * Linus Pisano MD - 01/11/2018 11:51 AM CDT Formatting of this note may be different from the original. Endocrinology Hospital Follow Up Visit Today's Date: 01/11/2018 Admission Date: 12/13/2017 Assessment: 1. DM type 2 with stress hyperglycemia A1c 6.5 , controlled RED LEADER regimen: Metformin thousand milligrams twice a day, jardiance 25 mg daily Hypoglycemic episodes on this regimen: None and not checking blood sugars at home Follows up with for diabetes management: Primary care physician at [facility] Diabetic-complications assessment: Retinopathy: None Peripheral neuropathy: Yes on treatment Autonomic neuropathy: None Nephropathy: None Macrovascular complications: None Risk factor assessment: Last lipid profile - None on file On ACEi/ARB: Yes On Statin: yes 2. Hypothyroidism RED LEADER 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 daily TSH 2.1 [...] 20,000 Units/ sodium bicarbonate 650 mg(#) PRN (Building Carpenter Helper from Rx), simethicone Q6H PRN Physical Examination [...] 01:40 PM No results found for: FREET3, [id number], THYBINDGLB Kalie Sibley, Endocrine fellow Pager [phone] * Arnaldo Delacruz MD - 01/11/2018 10:50 [...] Beata Kaiseris a 52 y.o.female[facility] the following issues: S/p hemipelvectomy for left pelvic chondrosarcoma Impairments: amputation (lower extremity), pain and poor activity tolerance Activity Limitations: grooming, bathing, dressing - lower, toileting, bladder control, transfers, ambulation and stairs Participation Restrictions: unable to return home safely This is a follow up visit from initial consultation performed on 12/27/2017 Beata Kaiser is a 52 yo F who presented to [facility] on 12/13/17 for scheduled left hemipelvectomy for [...] able to clear buttocks better this day RECREATION FACILITY MANAGER COGNITIVE EVALUATION SUMMARY PRAGMATICS: BEHAVIOR: AUDITORY COMPREHENSION: [...] Units/ sodium bicarbonate 650 mg(#) PRN ( Building Carpenter Helper from Rx), simethicone Q6H PRN Objective Vital [...] Stool Occurrence: 1 Oral Diet Order: Diabetic 7173-9320 Kcal/day (60 g Carb/meal, 30 g Carb/HS [...] hemipelvectomy Psych: Pleasent mood * Naresh Lynchssshelby Payne, DO - 01/10/2018 4:07 PM CDT Formatting [...] Units/ sodium bicarbonate 650 mg(#) PRN ( Building Carpenter Helper from Rx), simethicone Q6H PRN Physical Examination [...] with stress hyperglycemia A1c 6.5 , controlled RED LEADER regimen: Metformin thousand milligrams twice a day, jardiance 25 mg daily Hypoglycemic episodes on this regimen: None and not checking blood sugars at home Follows up with for diabetes management: Primary care physician at [facility]-complications assessment: Retinopathy: None Peripheral neuropathy: Yes on treatment Autonomic neuropathy: None Nephropathy: None Macrovascular complications: None Risk factor assessment: Last lipid profile - None on file On ACEi/ARB: Yes On Statin: yes 2. Hypothyroidism RED LEADER 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 daily TSH 2.1 [...] Units/ sodium bicarbonate 650 mg(#) PRN ( Building Carpenter Helper from Rx), simethicone Q6H PRN Physical Examination [...] 01:40 PM No results found for: FREET3, [id number], THYBINDGLB Kalie Sibley, Endocrine fellow Pager [phone] * Cassandra Villatoro - 01/10/2018 2:09 PM [...] up tomorrow post-operatively. Therapist: Lexus Shirley OTR/L [id number] Date: 01/10/2018 * Adrienne Zarate MD - [...] recs- recommend [facility] [place] -Psych, WATER USE INSPECTOR psych and psychology consults for coping, depression - appreciate assistance -Endocrine consult for blood sugar management - appreciate recs -ID consult - Zosyn, micafungin -Nutrition following for optimization -General Surgery consult - colostomy 12/30 -Sodium normalizing- discontinue fluid restriction Dispo: Continued drainage, plan for OR today for wound exploration and wound vac placement Adrienne Zarate MD 5416 * Earl Shetty MD - 01/09/2018 1:54 [...] with stress hyperglycemia A1c 6.5 , controlled RED LEADER regimen: Metformin thousand milligrams twice a day, jardiance 25 mg daily Hypoglycemic episodes on this regimen: None and not checking blood sugars at home Follows up with for diabetes management: Primary care physician at [facility] Diabetic-complications assessment: Retinopathy: None Peripheral neuropathy: Yes on treatment Autonomic neuropathy: None Nephropathy: None Macrovascular complications: None Risk factor assessment: Last lipid profile - None on file On ACEi/ARB: Yes On Statin: yes 2. Hypothyroidism RED LEADER 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 daily TSH 2.1 [...] Units/ sodium bicarbonate 650 mg(#) PRN ( Building Carpenter Helper from Rx), simethicone Q6H PRN Physical Examination [...] 09:45 AM No results found for: FREET3, [id number], THYBINDGLB Pertinent radiology images viewed. Deonna Diaz [...] Diabetic diet, nocturnal tube feeds. NPO at [place] for OR tomorrow -Posted for OR 01/10 [...] recs- recommend [facility] [place] -Psych, WATER USE INSPECTOR psych and psychology consults for coping, depression - appreciate assistance -Endocrine consult for blood sugar management - appreciate recs -ID consult - Zosyn, micafungin -Nutrition following for optimization -General Surgery consult - colostomy 12/30 -Sodium normalizing- discontinue fluid restriction Dispo: Continued drainage, plan for OR 01/10 for wound exploration and wound vac placement Adrienne Zarate MD 0947 * Tamiko Luther MD - 01/09/2018 7:35 [...] tub and ramps. 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 Equipment Recommendations: [facility] [place] Therapist: HUYEN Schmidt Date: 01/08/2018 * Adrienne [...] instead of SNF, would prefer [facility] -Psych, WATER USE INSPECTOR psych and psychology consults for coping, depression - appreciate assistance -Endocrine consult for blood sugar management - appreciate recs -ID consult - Zosyn, micafungin -Nutrition following for optimization -General Surgery consult - colostomy 12/30 Dispo: Continue inpatient care, if drainage persists over the weekend then plan for exploration of wound and wound vac placement in OR on 01/11 Adrienne Zarate MD 8703 * Annette Ling RN - 01/07/2018 5:41 [...] will round on Wednesday. Please call ID digital content specialist in the interim if questions arise. Complexity [...] Units/ sodium bicarbonate 650 mg(#) PRN ( Building Carpenter Helper from Rx), simethicone Q6H PRN Physical Examination [...] gabapentin 800 mg PO q 8 hours ([id number]) to increase daily serum concentration and more [...] MSN, RN- Clinical Nurse Coordinator Pain Management [phone] Team pager [phone] * Kalie Sibley MBBS - 01/07/2018 2:01 PM CDT Formatting of this note may be different from the original. Endocrinology Hospital Follow Up Visit Today's Date: 01/07/2018 Admission Date: 12/13/2017 Assessment: 1. DM type 2 with stress hyperglycemia A1c 6.5 , controlled RED LEADER regimen: Metformin thousand milligrams twice a day, jardiance 25 mg daily Hypoglycemic episodes on this regimen: None and not checking blood sugars at home Follows up with for diabetes management: Primary care physician at [facility] Diabetic-complications assessment: Retinopathy: None Peripheral neuropathy: Yes on treatment Autonomic neuropathy: None Nephropathy: None Macrovascular complications: None Risk factor assessment: Last lipid profile - None on file On ACEi/ARB: Yes On Statin: yes 2. Hypothyroidism RED LEADER 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 daily TSH 2.1 [...] Units/ sodium bicarbonate 650 mg(#) PRN ( Building Carpenter Helper from Rx), simethicone Q6H PRN Physical Examination [...] 09:45 AM No results found for: FREET3, [id number], THYBINDGLB Pertinent radiology images viewed. RAMIREZ Soto [...] instead of SNF, would prefer [facility] -Psych, WATER USE INSPECTOR psych and psychology consults for coping, depression - appreciate assistance -Endocrine consult for blood sugar management - appreciate recs -ID consult - Zosyn, micafungin -Nutrition following for optimization -General Surgery consult - colostomy 12/30 Dispo: Continue inpatient care, if drainage persists over the weekend then plan for exploration of wound and wound vac placement in OR on 01/11 Adrienne Zarate MD 9585 * Lexus Shirley, OT - 01/07/2018 11:11 AM CDT Formatting of this note may be different from the original. OCCUPATIONAL THERAPY PROGRESS NOTE Patient Name: Beata Kaiser Room/Bed: [place] [address] Admitting Diagnosis: Pelvic mass [R19.00] Pelvic mass [...] tub and ramps. 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 [place] [facility] [place] Information: Recommend ongoing assistance for: Transfers, Bed mobility, Dressing, Bathing, Toileting Therapist: Lexus Shirley, OTR/L [id number] Date: 01/07/2018 * Jasper Betts RN - 01/07/2018 9:18 AM CDT Inpatient Pain Management Nurses [facility] Nursing Practice - Follow -Up [...] MSN, RN- Clinical Nurse Coordinator Pain Management [phone] Team pager [phone] * Fareed Holcomb MD - 01/07/2018 8:10 [...] sign off at this time. Please page [phone] if you have any questions regarding the [...] Sensory intact. Fareed Holcomb MD Personal Pager: [phone] Team Pager: # [phone] * Indy Isabel MD - 01/06/2018 6:43 [...] 20,000 Units/ sodium bicarbonate 650 mg(#) PRN (Building Carpenter Helper from Rx), simethicone Q6H PRN Physical Examination [...] hospital : 1965 AGE: 52 y.o. ROOM: [place] [address] DOCTOR: Date of Order: 01/06/18 Date of Service: 01/06/18 Services referred for: Prosthetic Eval and Treat: Hip Rail Transportation Tabeler Description of condition/injury, including services:Amputations Size: 1X [...] PLAN: Order completed Mark Her 01/06/2018 * Cahri Moon - 01/06/2018 2:20 PM CDT PHYSICAL [...] Status: Alert;Cooperative Persons Present: Sister;Nursing Staff (Supervising RED LEADER) Pain: Patient complains of pain Pain Location: [...] non-insulin dependent diabetes mellitus who presented to [facility] on 12/13/17 for scheduled left hemipelvectomy for [...] further assistance , the service should page [phone] (24 hours a day/7 days a week) [...] 20,000 Units/ sodium bicarbonate 650 mg(#) PRN (Building Carpenter Helper from Rx), simethicone Q6H PRN Review of [...] Pertinent radiology reviewed. Hugh Salinas MD Pager [phone] * Emma See, KAYA - 01/06/2018 1:19 PM CDT CLINICAL NUTRITION Clinical Nutrition Follow-Up Summary Nutrition Assessment of Patient: Malnutrition Assessment: Adequately nourished prior to admission Current Oral Intake: Marginally Adequate Estimated Calorie Needs: 1660 (30 kcals/kg per DBW 55.3 kg due to large surgical wound) Estimated Protein Needs: 100-120 (1.5-2.2 g/kg desired wt.) Oral Diet Order: Diabetic 1480-4841 Kcal/day (60 g Carb/meal, 30 g Carb/HS snack ) Oral Supplement: Nebo Breakfast Essentials No Sugar Added, Protein Powder, TID EN Intake (calories) Daily Average : 1407 kilocalories (85% via EN only over past 3 d avg.(nocturnal only since 01/04) EN Intake (protein) Daily Average : 72 grams (60-72% via EN only over past 3 day avg.) Current EN Order: Nutren 1.5 @ 75ml/hr x's 12 hrs (1904-6884) + 2 Liquid ProSource/day (At goal provides: [...] noted as tender and distended, firm per heel lift gouger. CT completed this morning with no note [...] to floor RD on 01/03. Recommendation: Continue [phone] Consistent Carb Diet. Please encourage SUGER FREE [...] Time Frame: Throughout Stay Emma See, KAYA #[phone]. * Kalie Sibley MBBS - 01/06/2018 1:12 PM CDT Formatting of this note may be different from the original. Endocrinology Hospital Follow Up Visit Today's Date: 01/06/2018 Admission Date: 12/13/2017 Assessment: 1. DM type 2 with stress hyperglycemia A1c 6.5 , controlled RED LEADER regimen: Metformin thousand milligrams twice a day, jardiance 25 mg daily Hypoglycemic episodes on this regimen: None and not checking blood sugars at home Follows up with for diabetes management: Primary care physician at [facility] Diabetic-complications assessment: Retinopathy: None Peripheral neuropathy: Yes on treatment Autonomic neuropathy: None Nephropathy: None Macrovascular complications: None Risk factor assessment: Last lipid profile - None on file On ACEi/ARB: Yes On Statin: yes 2. Hypothyroidism RED LEADER 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 daily TSH 2.1 [...] 20,000 Units/ sodium bicarbonate 650 mg(#) PRN (Building Carpenter Helper from Rx), simethicone Q6H PRN Physical Examination [...] 09:45 AM No results found for: FREET3, [id number], THYBINDGLB Pertinent radiology images viewed. RAMIREZ Soto [...] RE-ASSESSMENT NOTE Patient Name: Beata Kaiser Room/Bed: [place] [address] Admitting Diagnosis: Pelvic mass [R19.00] Pelvic mass [...] tub and ramps. 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 Equipment Recommendations: [facility] [place] Additional Information: Recommend ongoing assistance for: Dressing, Bathing, Toileting, Transfers Therapist: Lexus Shirley, LELANDR/[place] [id number] Date: 01/06/2018 * Adrienne Zarate MD - [...] instead of SNF, would prefer [facility], WATER USE INSPECTOR psych and psychology consults for coping, depression - appreciate assistance -Endocrine consult for blood sugar management - appreciate recs -ID consult - Zosyn, micafungin -Nutrition following for optimization -General Surgery consult - colostomy 12/30 Dispo: Continue inpatient care Adrienne Zarate MD [phone] * Jami Edwards, RN - 01/05/2018 10:30 [...] Garsia RN, BSN Wound /Ostomy Team Pager [phone] After Hours Wound/Ostomy team pager [phone] * Kalie Sibley MBBS - 01/05/2018 3:01 PM CDT Formatting of this note may be different from the original. Endocrinology Hospital Follow Up Visit Today's Date: 01/05/2018 Admission Date: 12/13/2017 Assessment: 1. DM type 2 with stress hyperglycemia A1c 6.5 , controlled RED LEADER regimen: Metformin thousand milligrams twice a day, jardiance 25 mg daily Hypoglycemic episodes on this regimen: None and not checking blood sugars at home Follows up with for diabetes management: Primary care physician at [facility]-complications assessment: Retinopathy: None Peripheral neuropathy: Yes on treatment Autonomic neuropathy: None Nephropathy: None Macrovascular complications: None Risk factor assessment: Last lipid profile - None on file On ACEi/ARB: Yes On Statin: yes 2. Hypothyroidism RED LEADER 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 daily TSH 2.1 [...] 20,000 Units/ sodium bicarbonate 650 mg(#) PRN (Building Carpenter Helper from Rx), simethicone Q6H PRN Physical Examination [...] 09:45 AM No results found for: FREET3, [id number], THYBINDGLB Pertinent radiology images viewed. RAMIREZ Soto [...] Cognitive Status: Alert;Cooperative;Oriented Persons Present: Sister (Supervising RED LEADER, Wound team staff at beginning of session) [...] non-insulin dependent diabetes mellitus who presented to [facility] on 12/13/17 for scheduled left hemipelvectomy for [...] further assistance , the service should page [phone] (24 hours a day/7 days a week) [...] 20,000 Units/ sodium bicarbonate 650 mg(#) PRN (Building Carpenter Helper from Rx) Review of Systems: A 14 [...] 0304) POC Glucose (Download): (!) 265 (01/05/18 1010) Radiology and other Diagnostics Review: Pertinent radiology reviewed. Hugh Salinas MD Pager [phone] * Herminia Gant OTA - 01/05/2018 11:14 [...] instead of SNF, would prefer [facility], WATER USE INSPECTOR psych and psychology consults for coping, depression - appreciate assistance -Endocrine consult for blood sugar management - appreciate recs -ID consult - Zosyn, micafungin -Nutrition following for optimization - TPN (continue for now), tube feeds switched to nocturnal. - Prealbumin 18 and albumin 2.2 -General Surgery consult - colostomy 12/30 Dispo: Continue inpatient care Rebekah [phone] * Jasper Betts RN - 01/05/2018 9:45 AM CDT Inpatient Pain Management Nurses - [facility] Nursing Practice - Follow -Up Discussed patient with Nallely GRACE. Primary team is responsible for entering orders. Suggested Plan for the Day: Continue current pain regimen. Of note gabapentin was changed from 600 mg q6 hours to 800 mg q 12 hours. Suggestions was every 6 hours [phone]. Will continue with new dose today and [...] MSN, RN- Clinical Nurse Coordinator Pain Management [phone] Team pager [phone] * Indy Isabel MD - 01/05/2018 7:01 [...] 20,000 Units/ sodium bicarbonate 650 mg(#) PRN (Building Carpenter Helper from Rx) Physical Examination Vital Signs: Last [...] 20,000 Units/ sodium bicarbonate 650 mg(#) PRN (Building Carpenter Helper from Rx) Physical Examination Vital Signs: Last [...] with stress hyperglycemia A1c 6.5 , controlled RED LEADER regimen: Metformin thousand milligrams twice a day, jardiance 25 mg daily Hypoglycemic episodes on this regimen: None and not checking blood sugars at home Follows up with for diabetes management: Primary care physician at [facility] Diabetic-complications assessment: Retinopathy: None Peripheral neuropathy: Yes on treatment Autonomic neuropathy: None Nephropathy: None Macrovascular complications: None Risk factor assessment: Last lipid profile - None on file On ACEi/ARB: Yes On Statin: yes 2. Hypothyroidism RED LEADER 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 daily TSH 2.1 [...] 20,000 Units/ sodium bicarbonate 650 mg(#) PRN (Building Carpenter Helper from Rx) Physical Examination Vital Signs: Last [...] 09:45 AM No results found for: FREET3, [id number], THYBINDGLB Pertinent radiology images viewed. Impression: RAMIREZ [...] Agree With My Assessment? Wound Base Assessment Moist;[place];Gallardo;Yellow Surrounding Skin Assessment Intact Wound Site Closure None Wound Drainage Amount None Wound Drainage Description Serosanguineous Wound Dressing Status Intact Wound Dressing and / or Treatment Aquacel AG Number of days: 15 Wounds (NOT for Pressure Injuries) 12/23/17 1345 Left Labia (Active) 12/23/17 1345 Labia Wound Orientation: Left Wound Type: Wound Type:: Wound Description (Comments): Wound Base Assessment Moist;Pale;[place];Yellow Surrounding Skin Assessment Edema Wound Site Closure [...] Right (Active) 12/30/17 1209 Right Stoma Assessment [place], round, protruding Drainage Description Gallardo;Brown Peristomal Skin [...] BSN Wound Ostomy Nursing Consult Service Office: [phone] Pager: [phone] After hours Wound/Ostomy team pager : [phone] * Arnaldo Delacruz MD - 01/04/2018 11:45 [...] Beata Kaiseris a 52 y.o.female[facility] the following issues: S/p hemipelvectomy for left pelvic chondrosarcoma Impairments: amputation (lower extremity), pain and poor activity tolerance Activity Limitations: grooming, bathing, dressing - lower, toileting, bladder control, transfers, ambulation and stairs Participation Restrictions: unable to return home safely This is a follow up visit from initial consultation performed on 12/27/2017 Beata Kaiser is a 52 yo F who presented to [facility] on 12/13/17 for scheduled left hemipelvectomy for [...] a significant amount of fluid. RN notified. RECREATION FACILITY MANAGER COGNITIVE EVALUATION SUMMARY PRAGMATICS: BEHAVIOR: AUDITORY COMPREHENSION: [...] 20,000 Units/ sodium bicarbonate 650 mg(#) PRN (Building Carpenter Helper from Rx) Objective Vital Signs: Last Filed [...] instead of SNF, would prefer [facility], WATER USE INSPECTOR psych and psychology consults for coping, depression - appreciate assistance -Endocrine consult for blood sugar management - appreciate recs -ID consult - Zosyn, micafungin -Nutrition following for optimization - TPN (continue for now), tube feeds switched to nocturnal. - Prealbumin and albumin ordered. -General Surgery consult - colostomy 12/30 Dispo: Continue inpatient care César Davis MD [phone] * Chari Moon - 01/04/2018 10:32 AM [...] Status: Alert;Oriented;Cooperative Persons Present: Sister;Nursing Staff (Supervising RED LEADER) Pain: Patient complains of pain;During activity Pain [...] issues. Indy Isabel MD Date: 01/03/2018 Pager: [phone] Interval History Afebrile, stable vitals. ROS - [...] 20,000 Units/ sodium bicarbonate 650 mg(#) PRN (Building Carpenter Helper from Rx) Physical Examination Vital Signs: Last [...] Microbiology data reviewed. Chari Pedro DO Pager [phone] ID fellow * Chari Moon - 01/03/2018 [...] PROGRESS NOTE Patient Name: Beata Kaiser Room/Bed: [place] [address] Admitting Diagnosis: Pelvic mass [R19.00] Pelvic mass [...] of house, Stairs, Toileting Therapist: JOHNATHON Olivarez [id number] Date: 01/03/2018 * Kalie Sibley MBBS - 01/03/2018 12:05 PM CDT Formatting of this note may be different from the original. Endocrinology Hospital Follow Up Visit Today's Date: 01/03/2018 Admission Date: 12/13/2017 Assessment: 1. DM type 2 with stress hyperglycemia A1c 6.5 , controlled RED LEADER regimen: Metformin thousand milligrams twice a day, jardiance 25 mg daily Hypoglycemic episodes on this regimen: None and not checking blood sugars at home Follows up with for diabetes management: Primary care physician at [facility] Diabetic-complications assessment: Retinopathy: None Peripheral neuropathy: Yes on treatment Autonomic neuropathy: None Nephropathy: None Macrovascular complications: None Risk factor assessment: Last lipid profile - None on file On ACEi/ARB: Yes On Statin: yes 2. Hypothyroidism RED LEADER 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 daily TSH 2.1 [...] 20,000 Units/ sodium bicarbonate 650 mg(#) PRN (Building Carpenter Helper from Rx) Physical Examination Vital Signs: Last [...] 09:45 AM No results found for: FREET3, [id number], THYBINDGLB Pertinent radiology images viewed. Impression: RAMIREZ [...] CDT Inpatient Pain Management Nurses - Clinical [facility] Nursing Practice - Follow -Up Primary team is responsible for entering orders. Suggested Plan for the Day: Change acetaminophen 1000 mg PO q 8 hours, [id number] - Patient has been at ~ 4000 mg daily for many days Change gabapentin 800 mg PO q 12 hours, 4318-4881 - improve medication that patient indicates helps with phantom limb pain and facilitate the larger dose being given just before bedtime. Gabapentin 600 mg PO q 12 hours, 6614-3381 - maintain a 400 mg/day dose increase [...] MSN, RN- Clinical Nurse Coordinator Pain Management [phone] Team pager [phone] * Hugh Salinas MD - 01/03/2018 10:37 [...] non-insulin dependent diabetes mellitus who presented to [facility] on 12/13/17 for scheduled left hemipelvectomy for [...] 20,000 Units/ sodium bicarbonate 650 mg(#) PRN (Building Carpenter Helper from Rx) Review of Systems: A 14 [...] 0510) POC Glucose (Download): (!) 119 (01/03/18 3734) Radiology and other Diagnostics Review: Pertinent radiology reviewed. Hugh Salinas MD Pager [phone] * Adrienne Carlos, RD - 01/03/2018 8:59 [...] 12/14. Pt reported she was eating well RED LEADER and has had a stable weight. Pt's weight wentdown 28# or 12% s/p removal of her leg, 203# (12/18). Latest weight shows a 14# increase in 9 days, likely due to fluid. Pt had continued to havedecreased PO intake, with average PO intake of 600 kcals, 33 gm per day per calorie count. Yet Per fellow RD, all of Pt's intake of Nebo shakes may not be included in the [...] encourage protein shakes between meals, made with Nebo Breakfast Essentials (NO SUGAR ADDED), skim milk, [...] further nutrition care. Adrienne Carlos RD, LD, [facility] *[phone] * Feli Winkler MD - 01/03/2018 8:48 [...] -Colorectal surgery will sign off, please page #[phone] with further questions -Follow-up with Dr. Mccollum [...] Net 308 ml Feli Winkler MD Pager [phone] * César Davis MD - 01/03/2018 6:22 [...] instead of SNF, would prefer [facility], WATER USE INSPECTOR psych and psychology consults for coping, depression - appreciate assistance -Endocrine consult for blood sugar management - appreciate recs -ID consult - Zosyn, micafungin -Nutrition following for optimization - TPN (continue for now), tube feeds -General Surgery consult - colostomy 12/30 Dispo: Continue inpatient care César Davis MD [phone] * Harry Alfonso - 01/02/2018 3:37 PM [...] with stress hyperglycemia A1c 6.5 , controlled RED LEADER regimen: Metformin thousand milligrams twice a day, jardiance 25 mg daily Hypoglycemic episodes on this regimen: None and not checking blood sugars at home Follows up with for diabetes management: Primary care physician at [facility] Diabetic-complications assessment: Retinopathy: None Peripheral neuropathy: Yes on treatment Autonomic neuropathy: None Nephropathy: None Macrovascular complications: None Risk factor assessment: Last lipid profile - None on file On ACEi/ARB: Yes On Statin: yes 2. Hypothyroidism RED LEADER 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 daily TSH 2.1 [...] 20,000 Units/ sodium bicarbonate 650 mg(#) PRN (Building Carpenter Helper from Rx) Physical Examination Vital Signs: Last [...] 09:45 AM No results found for: FREET3, [id number], THYBINDGLB Pertinent radiology images viewed. Impression: Marco [...] PROGRESS NOTE Patient Name: Beata Kaiser Room/Bed: [id number]/01 Admitting Diagnosis: Pelvic mass [R19.00] Pelvic mass [...] Pt requires extra time and cues for pdmq-hi-hqur process. Limited by pain and weakness. Assist [...] (HCC) Hypothyroidism Hemorrhagic shock (HCC) Chronic pain Baeta Lema a 52 y.o.femaleHx of hypothyroidism and non-insulin dependent diabetes mellitus who presented to [facility] on 12/13/17 for scheduled left hemipelvectomy for [...] Net 341 ml Fareed Holcomb MD Pager [phone] Associated attestation - Manny Barrios MD - [...] instead of SNF, would prefer [facility], WATER USE INSPECTOR psych and psychology consults for coping, depression - appreciate assistance -Endocrine consult for blood sugar management - appreciate recs -ID consult - Zosyn, micafungin -Nutrition following for optimization - TPN (continue for now), tube feeds -General Surgery consult - colostomy 12/30 Dispo: Continue inpatient care César Davis MD [phone] * Amanda Juares - 01/01/2018 4:29 PM CDT BS at 1330 was 386, recheck BS at 1610 was 354. called, recommended calling endocrinology. Spoke with lens cementer, per today's progress note insulin changes ordered [...] Net 949 ml Feli Winkler MD Pager [phone] Associated attestation - Manny Barrios MD - [...] with stress hyperglycemia A1c 6.5 , controlled RED LEADER regimen: Metformin thousand milligrams twice a day, jardiance 25 mg daily Hypoglycemic episodes on this regimen: None and not checking blood sugars at home Follows up with for diabetes management: Primary care physician at [facility] Diabetic-complications assessment: Retinopathy: None Peripheral neuropathy: Yes on treatment Autonomic neuropathy: None Nephropathy: None Macrovascular complications: None Risk factor assessment: Last lipid profile - None on file On ACEi/ARB: Yes On Statin: yes 2. Hypothyroidism RED LEADER 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 daily TSH 2.1 [...] 20,000 Units/ sodium bicarbonate 650 mg(#) PRN (Building Carpenter Helper from Rx) Physical Examination Vital Signs: Last [...] 04:38 AM No results found for: FREET3, [id number], THYBINDGLB Pertinent radiology images viewed. Impression: Taft Graves, MD 01/01/2018 Endocrine * César Davis [...] instead of SNF, would prefer [facility], WATER USE INSPECTOR psych and psychology consults for coping, depression [...] non-insulin dependent diabetes mellitus who presented to [facility] on 12/13/17 for scheduled left hemipelvectomy for [...] 20,000 Units/ sodium bicarbonate 650 mg(#) PRN (Building Carpenter Helper from Rx) Objective: Vital Signs: Last Filed [...] 20,000 Units/ sodium bicarbonate 650 mg(#) PRN (Building Carpenter Helper from Rx) Physical Examination Vital Signs: Last [...] Microbiology data reviewed. Chari Pedro DO Pager [phone] ID fellow * Kerline Kruger RN - [...] on the patient. 1703: Paged Med consults #[phone] Spoke to team about EKG results and [...] Assessment? Except 12/30/2017 2:45 PM Stoma Assessment [place] 12/31/2017 12:00 PM Drainage Description Sanguineous;Brown 12/30/2017 [...] BSN Wound Ostomy Nursing Consult Service Office: [phone] Pager: [phone] After hours Wound/Ostomy team pager : [phone] * Adair Colin MD - 12/31/2017 12:05 [...] between 8am and 3pm on weekends at [phone]. Otherwise, page the university relations vice president digital content specialist. Subjective: Beata Kaiser is seen for routine [...] 20,000 Units/ sodium bicarbonate 650 mg(#) PRN (Building Carpenter Helper from Rx) Mental Status Exam: General/Constitutional: cooperative, [...] and between 8am and 3pm on weekends [phone]. Otherwise, page the university relations vice president digital content specialist. Staff name: Hugh Quintana MD Date: 01/01/2018 [...] Net 2755 ml Evelyn Barrow DO Pager [phone] * Herminia Gant OTA - 12/31/2017 11:30 [...] AM CDT Inpatient Pain Management Nurses - [facility] Nursing Practice - Follow -Up Discussed patient with Dr. Mina Davis (primary team). Primary team is responsible for entering orders. Suggested Plan for the Day: Lidocaine patch x2 cut to fit placed beside surgical incision and around ostomy bag. Discontinue fentanyl OBIEE CONSULTANT - patient stating that she is not [...] Regimen, OME: Used 580 mcg in fentanyl OBIEE CONSULTANT ~ 58 mg Used 1 dose of morphine IV @ 2 mg ~ 6 mg Used 3 doses of IV fentanyl @ 50 cdk=527 mcg ~ 15 mg Used 1 dose [...] 25 mg at 12/19/17 2139 fentaNYL (SUBLIMAZE) OBIEE CONSULTANT 550 mcg/ NS 55 mL infusion syr (std conc)( premade), , Intravenous, OBIEE CONSULTANT, César Davis MD fentaNYL citrate PF (SUBLIMAZE) [...] 1 capsule, 1 capsule, Feeding Tube, PRN (Building Carpenter Helper from Rx), Adrienne Zarate MD pantoprazole DR [...] hours as needed for pain. Discontinue fentanyl OBIEE CONSULTANT. Suggest allowing hydromorphone 0.5-1 mg IV every 4 hours as needed for breakthrough pain not relieved with oral medications or NPO or vomiting for ONLY 24 hours, then taper to every 6 hours PRN breakthrough pain not relieved with oral medications or NPO or vomiting. Please call with questions/concerns. Jasper Betts, MSN, RN- Clinical Nurse Coordinator Pain Management [phone] Team pager [phone] * Adrienne Carlos RD - 12/31/2017 9:46 [...] (TPN) 65 mL/hr at 12/30/172027 fentaNYL (SUBLIMAZE) OBIEE CONSULTANT 550 mcg/ NS 55 mL infusion syr (std conc)(premade ) lactated ringers infusion Stopped (12/30/17 1440) PRN and Respiratory Meds:alum/mag hydroxide/simeth Q6H PRN, calcium carbonate Q4H PRN, diazePAM Q6H PRN, diphenhydrAMINE Q6H PRN OR [DISCONTINUED] diphenhydrAMINE Q6H PRN, fentaNYL citrate PF Q1H PRN, naloxone PRN, ondansetron (ZOFRAN) IV Q6H PRN, oxyCODONE Q3H PRN, pancrelipase 20,000 Units/ sodium bicarbonate 650 mg(#) PRN (Building Carpenter Helper from Rx) Electrolyte Treatments: Nothing besides LR [...] 12/14. Pt reported she was eating well RED LEADER and has had a stable weight. Pt's [...] fellow RD, all of Pt's intake of Nebo shakes may not be included in the [...] + Protein shakes between meals, made with Nebo Breakfast Essentials (NO SUGAR ADDED), skim milk, [...] are desired. NSS is available by pager [phone] for assistance. Adrienne Carlos, RD, LD, [facility] *[phone] * César Davis MD - 12/31/2017 8:01 [...] instead of SNF, would prefer [facility], WATER USE INSPECTOR psych and psychology consults for coping, depression - appreciate assistance -IM consult for hyponatremia and diabetes management- appreciate recs -ID consult for persistent leukocytosis and fevers - Zosyn, micafungin -Nutrition following for optimization - TPN -General Surgery consult - colostomy 12/30 Dispo: Continue inpatient care César Davis MD [phone] * Kerline Kruger, RN - 12/31/2017 8:00 [...] No orders reiceved. Surgery resident, Dr Barrow #[phone] paged. Orders received. Primary RN notified and will administer gabapentin per patient request for phantom limb pain. * Kerline Kruger, SANJAY - 12/30/2017 7:03 PM CDT I have reviewed the notes, assessment, and/or procedures performed by Ana Eller ([facility] student) and concur with her/his documentation unless [...] Dr. Davis gave orders for a Fentanyl OBIEE CONSULTANT with the settings of 10/6/0/10. Orders in [...] Units/ sodium bicarbonate 650 mg (#) PRN (Building Carpenter Helper from Rx) Physical Examination Vital Signs: Last [...] Microbiology data reviewed. Chari Pedro DO Pager [phone] ID fellow * Kerline Kruger, SANJAY - [...] as indicated post-operatively. Therapist: Lexus Shirley OTR/L [id number] Date: 12/30/2017 * Cassandra Villatoro - 12/30/2017 [...] 20,000 Units/ sodium bicarbonate 650 mg(#) PRN (Building Carpenter Helper from Rx) Electrolyte Treatments: None noted yesterday [...] 12/14. Pt reported she was eating well RED LEADER and has had a stable weight. Pt's [...] fellow RD, all of Pt's intake of Nebo shakes may not be included in the [...] of goal) Nneka Thompson MS, RD, LD, [facility] Pager [phone] Office [phone] * Aimee Mccollum DO - 12/30/2017 8:22 [...] 20,000 Units/ sodium bicarbonate 650 mg(#) PRN (Building Carpenter Helper from Rx) Vital Signs: Last Filed Vital [...] 160 (12/30/17 0358) Glucose: (!) 165 (12/30/17 3649) POC Glucose (Download): (!) 160 (12/30/17 9906) Aimee Mccollum DO Pager [phone] * César Davis MD - 12/30/2017 7:54 [...] instead of SNF, would prefer [facility] -Psych, WATER USE INSPECTOR psych and psychology consults for coping, depression - appreciate assistance -IM consult for hyponatremia and diabetes management- appreciate recs -ID consult for persistent leukocytosis and fevers - Katrinasyn, appreciate recs -Nutrition following for optimization- nocturnal tube feeds -General Surgery consult- plan for colostomy 12/30 Dispo: NPO for colostomy today César Davis MD [phone] * Grace Smith, SANJAY - 12/30/2017 3:17 AM CDT Pt bowels are not clear. RN paged Onc to see what step to take next to get pt to clear bowels. Onc digital content specialist stated that there was no further action [...] sessions as part of her plan of animal caretaker supervisor: Lynn Bruce Date: 12/29/2017 * Chari Moon [...] Cognitive Status: Alert;Oriented;Cooperative Persons Present: Daughter;Spouse (Supervising RED LEADER) Pain: Patient complains of pain Pain Location: [...] Units/ sodium bicarbonate 650 mg (#) PRN (Building Carpenter Helper from Rx) Physical Examination Vital Signs: Last [...] PROGRESS NOTE Patient Name: Beata Kaiser Room/Bed: [place] [address] Admitting Diagnosis: Pelvic mass [R19.00] Pelvic mass [...] and Cooperative to Participate Persons Present: Daughter (wildlife rehabilitator) Home Living Type of Home: House Home Layout: Performs ADL'S on One Level (2 steps to enter) Bathroom Shower / Tub: Tub/Shower Unit Prior Function Level Of Howell: Independent with ADLs and functional transfers Lives [...] OT Discharge Recommendations: Inpatient Setting [place] Recommendations[place] [facility] [place] Additional Information: Recommend ongoing assistance for: Transfers, Bed mobility, Dressing, Bathing, Toileting Therapist: SACHA Nath/Tapan [id number] Date: 12/29/2017 * Adrienne Zarate MD - [...] instead of SNF, would prefer [facility] -Psych, WATER USE INSPECTOR psych and psychology consults for coping, depression - appreciate assistance -IM consult for hyponatremia and diabetes management- appreciate recs -ID consult for persistent leukocytosis and fevers - Radha, appreciate recs -Nutrition following for optimization- nocturnal tube feeds -General Surgery consult- plan for colostomy 12/30 Dispo: Continue inpatient care, NPO at HI and hold tube feeds Adrienne Zarate MD [phone] * Adair Colin MD - 12/28/2017 6:31 [...] between 8am and 3pm on weekends at [phone]. Otherwise, page the university relations vice president digital content specialist. Subjective: Beata Kaiser is seen for routine [...] 000 Units/ sodium bicarbonate 650 mg(#) PRN (Building Carpenter Helper from Rx) Mental Status Exam: General/Constitutional: cooperative, [...] and between 8am and 3pm on weekends [phone]. Otherwise, page the university relations vice president digital content specialist. Staff name: Hugh Quintana MD Date: 12/29/2017 [...] Units/ sodium bicarbonate 650 mg (#) PRN (Building Carpenter Helper from Rx) Physical Examination Vital Signs: Last [...] / Cognitive Status: Alert;Cooperative Persons Present: (Spervising RED LEADER) Pain: Patient complains of pain Pain Location: [...] provide intervention as indicated. Therapist: SACHA Nath/Tapan [id number] Date: 12/28/2017 * Nani Mcelroy RN - [...] BSN Wound Ostomy Nursing Consult Service Office: [phone] Pager: [phone] After hours Wound/Ostomy team pager : [phone] * Dalia Bullock MD - 12/28/2017 9:38 [...] non-insulin dependent diabetes mellitus who presented to [facility] on 12/13/17 for scheduled left hemipelvectomy for [...] Dalia Bullock MD PGY-3 Internal Medicine Pager [phone] Subjective Beata Kaiser is a 52 y.o. [...] 20,000 Units/ sodium bicarbonate 650 mg(#) PRN (Building Carpenter Helper from Rx) Objective: Vital Signs: Last Filed [...] 0400) POC Glucose (Download): (!) 187 (12/28/17 9325) Radiology and other Diagnostics Review: Pertinent radiology [...] Hgb 8.2 -Rehab consult- appreciate recs -Psych, WATER USE INSPECTOR psych and psychology consults for coping, depression [...] Dispo: Continue inpatient care Adrienne Zarate MD [phone] * Anita Hines RN - 12/28/2017 12:16 [...] a 52 y.o. female admitted to [facility] on 12/13/2017 with the following issues: S/p [...] acute inpatient rehabilitation. Other recommendations Impaired gait/mobility: RED LEADER pt was independent Currently requiring total assist Will benefit from continued work with PT to address mobility deficits Impaired ADL: RED LEADER pt was independent Currently requiring total assist Will benefit from ongoing OT to address functional deficits Neuropathic pain Agree with aggressive gabapentin regimen as ordered. Pt will also benefit from de-sensitization techniques as instructed by PT and to be performed by self as able. Hospital Course: Beata Kaiser is a 52 yo F who presented to [facility] on 12/13/17 for scheduled left hemipelvectomy for [...] management due to ongoing pain issues since OBIEE CONSULTANT removed. Pt has been working with PT/OT [...] set ( turned to R with wedge). RECREATION FACILITY MANAGER COGNITIVE EVALUATION SUMMARY PRAGMATICS: BEHAVIOR: AUDITORY COMPREHENSION: [...] 20,000 Units/ sodium bicarbonate 650 mg(#) PRN (Building Carpenter Helper from Rx) Objective Vital Signs: Last Filed [...] non-insulin dependent diabetes mellitus who presented to [facility] on 12/13/17 for scheduled left hemipelvectomy for [...] Dalia Bullock MD PGY-3 Internal Medicine Pager [phone] Subjective Beata Kaiser is a 52 y.o. [...] / Cognitive Status: Alert;Cooperative Persons Present: (Supervising RED LEADER) Pain: Patient complains of pain Pain Location: [...] CDT PHYSICAL THERAPY MOBILITY NOTE Attempt x1 (3721) Patient was assigned for activity with the mobility aide by the supervising therapist. Patient declined to participate despite encouragement. Patient reports that she is resting comfortably at this time and requests to continue resting. Patient is open to this microbiology quality control technician returning for mobility session later on this date if time allows. Nursing notified. Will revisit this patient as able. Attempt x2 (2918): Patient was assigned for activity with the [...] Diet Order: Six Small Meals Oral Supplement: Nebo Breakfast Essentials No Sugar Added, Protein Powder [...] have any lunch. Dinner was only an German muffin and grapes. She reports her appetite [...] Hours Status: Not met Emma See RD #[id number]. * Adrienne Zarate MD - 12/27/2017 12:43 [...] Hgb 8.1 -Rehab consult- appreciate recs -Psych, WATER USE INSPECTOR psych and psychology consults for coping, depression [...] Dispo: Continue inpatient care Adrienne Zarate MD [phone] Associated attestation - Tamiko Luther MD - [...] collection is noted. Chari Pedro DO Pager [phone] Infectious Diseases Fellow * Fareed Holcomb MD [...] warm, dry Fareed Holcomb MD Personal Pager: [phone] Team Pager: # [phone] * Marlene Ramirez - 12/27/2017 10:15 AM CDT ORTHOTICS/PROSTHETICS Consult Note: NAME: Beata Kaiser ADMISSION DATE: admitted to hospital : 1965 AGE: 52 y.o. ROOM: [place] [address] DOCTOR: Date of Order: 12/24 Date of [...] PROGRESS NOTE Patient Name: Beata Kaiser Room/Bed: [place] [address] Admitting Diagnosis: Pelvic mass [R19.00] Pelvic mass [...] Willing and Cooperative to Participate Persons Present: (music rehabilitation therapist) Home Living Type of Home: House Home Layout: Performs ADL'S on One Level (2 steps to enter) Bathroom Shower / Tub: Tub/Shower Unit Prior Function Level Of Howell: Independent with ADLs and functional transfers Lives [...] mobility, Dressing, Bathing, Toileting Therapist: SACHA Nath/Tapan [id number] Date: 12/27/2017 * Macho Nolasco, PIYUSHD - [...] non-insulin dependent diabetes mellitus who presented to [facility] on 12/13/17 for scheduled left hemipelvectomy for [...] 0401) POC Glucose (Download): (!) 215 (12/26/17 3680) Radiology and other Diagnostics Review: Pertinent radiology [...] Cognitive Status: Alert;Cooperative;Oriented;To Person;To Place Persons Present: Shoulder Sawyer Pain: Patient complains of pain;02/27;Before activity Pain [...] PROGRESS NOTE Patient Name: Beata Kaiser Room/Bed: [place] [address] Admitting Diagnosis: Pelvic mass [R19.00] Pelvic mass [...] Tub: Tub/Shower Unit Prior Function Level Of Howell: Independent with ADLs and functional transfers Lives [...] Setting Equipment Recommendations: Drop arm BSC, w/c, emergency medical services coordinator, slide board Additional Information: Recommend ongoing assistance [...] Hgb 7.9 -Rehab consult- appreciate recs -Psych, WATER USE INSPECTOR psych and psychology consults for coping, depression [...] Continue inpatient care César Davis MD Pager [phone] * Hood Tellez MD - 12/25/2017 6:49 [...] non-insulin dependent diabetes mellitus who presented to [facility] on 12/13/17 for scheduled left hemipelvectomy for [...] 0442) POC Glucose (Download): (!) 292 (12/25/17 1302) Radiology and other Diagnostics Review: Pertinent radiology [...] 8.3 today -Rehab consult- appreciate recs -Psych, WATER USE INSPECTOR psych and psychology consults for coping, depression- appreciate assistance -IM consult for hyponatremia- appreciate recs, improving -ID consult for persistent leukocytosis and fevers- Vanc/zosyn, appreciate recs -Nutrition following for optimization; calorie count performed yesterday; request Nutrition evaluation for possible feeding tube placement -CT pelvis ordered to evaluate fluid collection Dispo: Continue inpatient care César Davis MD Pager [phone] * Luis Sargent MD - 12/24/2017 5:29 [...] non-insulin dependent diabetes mellitus who presented to [facility] on 12/13/17 for scheduled left hemipelvectomy for [...] Screen NEG Electronic Crossmatch YES Unit Number [id number] Blood Component Type RBC,ADSOL,LEUKO REDUCED Unit Division [...] Pertinent radiology reviewed. Luis Sargent MD Pager [phone] * Italia Ramos RN - 12/24/2017 3:33 [...] PROGRESS NOTE Patient Name: Beata Kaiser Room/Bed: [place] [address] Admitting Diagnosis: Pelvic mass [R19.00] Pelvic mass [...] Cooperative to Participate Persons Present: RN (personal insurance advisor, wildlife rehabilitator) Home Living Type of Home: House Home Layout: Performs ADL'S on One Level (2 steps to enter) Bathroom Shower / Tub: Tub/Shower Unit Prior Function Level Of Howell: Independent with ADLs and functional transfers Lives [...] Pt supine at OT departure with staff registered nurse at bedside. Activity Tolerance Endurance: 2/5 Tolerates [...] unit today -Rehab consult- appreciate recs -Psych, WATER USE INSPECTOR psych and psychology consults for coping, depression- appreciate assistance -IM consult for hyponatremia- appreciate recs -ID consult for persistent leukocytosis and fevers- Vanc/zosyn, appreciate recs -Nutrition following for optimization -Calorie count today -PICC line ordered Dispo: continue inpatient care Adrienne Zarate MD Pager [phone] * Nani Lynch, - 12/24/2017 7:44 AM [...] Lynch, DO Division of Infectious Diseases Pager [phone] Dr. Isabel will round again on the patient on Wednesday. Please feel free to call the ID fellow digital content specialist at pager [phone] if there are any new issues or [...] acute cardiopulmonary abnormality. Dominique Nelson MD Pager [phone] Infectious Diseases Fellow * Mauro Xiong - [...] non-insulin dependent diabetes mellitus who presented to [facility] on 12/13/17 for scheduled left hemipelvectomy for [...] needs further assistance, the service should page [phone] (24 hours a day/7 days a week) [...] Pertinent radiology reviewed. Luis Sargent MD Pager [phone] * Kaylie Johnson - 12/23/2017 3:24 PM [...] and adjust therapy as needed. Kaylie Johnson [facility] 12/23/2017 * Nani Lynch DO - [...] Lynch DO Division of Infectious Diseases Pager [phone] Interval History Fever up to 38.9 No [...] atelectasis and/or pneumonia. Dominique Nelson MD Pager [phone] Infectious Diseases Fellow * Herminia Gant OTA [...] Tub: Tub/Shower Unit Prior Function Level Of Howell: Independent with ADLs and functional transfers Lives [...] OT Discharge Recommendations: Inpatient Setting Equipment Recommendations: [facility] [place] Additional Information: Next treatment: cardiac chair ordered [...] monitor -Rehab consult- appreciate recs -Psych and WATER USE INSPECTOR psych consults for coping, depression- appreciate assistance -IM consult for hyponatremia- appreciate recs -ID consult for persistent leukocytosis and fevers- katrinasyn, appreciate recs -Nutrition following for optimization Dispo: continue inpatient care Adrienne Zarate MD Pager [phone] * Kerline Kruger RN - 12/23/2017 10:[address] Zarate notified about patients temperature of 38.9 C (102 F) and patients lethargy. Patient is unable to carry on conversation and barely able to answer questions before drifting off to sleep. Dr. Zarate stated that she would come to see the patient shortly. Nothing further at this time. * Ivette Wade APRN-WATER USE INSPECTOR - 12/23/2017 9:35 AM CDT Patient too tired to engage in conversation this morning. Will continue to try to find her and talk about her emotional recovery from her new body image. She is a very self reliant and resilient woman by history. Please use the sleep bundle to assure her at leat 4 hours of uninterrupted sleep. Ivette Wade [facility]- [phone] * Mauro Xiong - 12/22/2017 [...] non-insulin dependent diabetes mellitus who presented to [facility] on 12/13/17 for scheduled left hemipelvectomy for [...] needs further assistance, the service should page [phone] (24 hours a day/7 days a week) [...] (Last 24 hours) Glucose: (!) 142 (12/22/17 6028) POC Glucose (Download): (!) 227 (12/22/17 1239) Radiology and other Diagnostics Review: Pertinent radiology reviewed. Luis Sargent MD Pager [phone] * Kendrick Varma RN - 12/22/2017 4:58 [...] / Cognitive Status: Alert;Oriented;Cooperative;Follows Commands Persons Present: Shoulder Sawyer;Nursing Staff Pain: Patient complains of pain;2/10 (varies [...] Current Oral Intake: Improving Estimated Calorie Needs: 4355-7807 (27-30 kcal/kg desired wt of 55.3kg.) Estimated Protein Needs: 100 (1.8 g/kg desired wt of 55.3kg.) Oral Diet Order: Regular Beata Kaiser is a 52 y.o. 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 Pt reported she was eating well RED LEADER and has had a stable weight. (Pt's weight is now down 28# or 12% s/p removal of her leg). Pt appears obese.. Pt reports decreased po intake, no GI concerns. She has somewhat of a flat affect. I was able to engaged her in education regarding her high protein needs. I also encouraged and provided her with a Nebo high protein shake which she liked and was sipping on at time of my visit (cleared with RN first 2/2 pt is diabetic and on a dluid restriction). She reports she is familiar with diabetic diet and has no questions. RD to continue to follow to ensure adequate protein and po intake. Recommendation: Continue 8630-0085 Consistent Carb Diet OR if bs's elevated, [...] Frame: Within 72 Hours Emma See, KAYA #[id number]. * Shilpi Camejo RN - 12/22/2017 12:39 PM CDT Pt has had several loose stools today. C diff screen negative as of 12/20. Spoke with Dr Zarate for possible imodium orders. Will hold off until ID sees her for rounds * Ivette Wade, SCUBA INSTRUCTOR-WATER USE INSPECTOR - 12/22/2017 10:05 AM CDT Patient was [...] help her have better sleep. Ivette Wade [facility]- [phone] * Adrienne Zarate MD - [...] continue to monitor -Rehab consult- appreciate recs -WATER USE INSPECTOR psych consult for coping, depression- appreciate assistance -IM consult for hyponatremia- appreciate recs -Nutrition following for optimization Dispo: continue inpatient care Adrienne Zarate MD Pager [phone] * Ivette Wade APRN-WATER USE INSPECTOR - 12/21/2017 2:30 PM CDT Patient resting. [...] continue to monitor -Rehab consult- appreciate recs -WATER USE INSPECTOR psych consult for coping, depression- appreciate assistance -IM consult for hyponatremia- appreciate recs Dispo: continue inpatient care Adrienne Zarate MD Pager [phone] * Herminia GantHUYEN - 12/21/2017 1:23 PM [...] Tub: Tub/Shower Unit Prior Function Level Of Howell: Independent with ADLs and functional transfers Lives [...] Current Oral Intake: Improving Estimated Calorie Needs: 9156-4355 (30-35 kcals/kg per DBW 55.3kg) Estimated Protein Needs: 83-111 (1.5-2 gm/kg per DBW 55.3kg) Oral Diet Order: Regular Beata Kaiser is a 52 y.o. 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 Pt reported she was eating well RED LEADER and has had a stable weight. (Pt's [...] tolerance. Recommendation: Recommend switching to Diabetic Diet 4714-2676 kcals due to Pt's h/o DM and [...] Nneka Thompson MS, RD, LD, CNSC Pager [phone] Office [phone] * Annette Ling, RN - 12/20/2017 3:55 PM CDT When the patient was cleaned up, the PNC catheter was dislodged and laying in the bed. PNC had not been infusing since yesterday in the SICU. * Keiko Cao - 12/20/2017 3:28 PM CDT Unit Truck Driver'S Offsider checked chart for note taking regarding Unit assignments. The spiritual care team is available as needed, 12/04, through the donald switchboard ([phone]). For immediate response, please page [phone]. For a response within 24 hours, please submit an order in O2 for a public works technician consult or call the administrative voicemail at [phone]. Respectfully Submitted, Rev. Keiko Cao Province Archivist Extension [phone] * Ruth Abbott, PT - 12/20/2017 1:02 PM CDT PHYSICAL THERAPY NOTE Attempted to see patient this afternoon at scheduled time with microbiology quality control technician. Patient just transferred off of SICU [...] arrived to unit. * Melba Forbes M.Div, [facility] - 12/20/2017 11:30 AM CDT Truck Driver'S Offsider Note: Admit Date: 12/13/2017 Reason for Visit: Truck Driver'S Offsider met with patient per her request for a public works technician visit. Truck Driver'S Offsider introduced Spiritual Care and offered active listening as pt shared about her health issues and family. Shantell/Pentecostalism: Pt confirmed that she is Zoroastrian. Pt has recently gone to [facility] in [place], [place] with some co-workers. Pt states this voodoo is "more Jainism" bus she likes it saying the "highway engineering technician provides a good message." Source of Purpose/Meaning: Pt's family appears to be important to her. One daughter, Lynn, was in pt's room and pt has another daughter and son plus her spouse. 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 Pt is not sure that she will be able to keep that same job, yet is hoping to be able to stay on doing more desk work. Truck Driver'S Offsider did not catch the name of her [...] support from her community and work. Interventions/Plan: Truck Driver'S Offsider provided supportive presence as pt shared about her situation. Pt requested prayer which public works technician provided. Pt would appreciate follow-up visits and is not sure if she will go to another unit and later rehab as she continues to recover. Truck Driver'S Offsider also spoke individually to daughter Lynn and learned that she is with her first child. Pt has other grandchildren (ages 8 & 4) so this will be her third grandchild. Family is traveling back and forth from [place] to support pt. The spiritual care team is available as needed, 12/04, through the donald switchboard ([phone]). For immediate response, please page [phone]. For a response within 24 hours, please submit an order in O2 for a public works technician consult or call the administrative voicemail at [phone]. Please page or use consult order if patient or family requests visit. Date/Time: User: Pager: [phone] 12/20/2017 1:11 PM Melba Forbes M.Div, [facility] PCU 5 PCU * Herminia Gant OTA [...] Tub: Tub/Shower Unit Prior Function Level Of Howell: Independent with ADLs and functional transfers Lives [...] continue to monitor -Rehab consult- appreciate recs -WATER USE INSPECTOR psych consult for coping, depression- appreciate assistance Dispo: continue inpatient care, transfer to floor Adrienne Zarate MD Pager [phone] * Ruth Abbott, PT - 12/19/2017 1:33 [...] / Cognitive Status: Alert;Oriented;Cooperative;Follows Commands Persons Present: Shoulder Sawyer;Daughter Pain: Patient complains of pain;Before activity;During activity;Patient does not rate pain Pain Location: Left;Hip Pain Interventions: Patient pre-medicated;Patient agrees to participate in therapy with modifications to session;Patient encouraged to use OBIEE CONSULTANT/PNC (IV) Precautions: NGT, 1 MANNY drain L [...] 52 y.o. female : 1965 MRN# : [id number] PROCEDURE: Procedure(s) with comments: JAMIL PELVECTOMY - [...] us with any questions. Anesthesia Pain pager: [phone] Allergies Allergen Reactions Cephalexin SEE COMMENTS Face [...] removed, tolerating CLD. Issues with pain after OBIEE CONSULTANT removed. Continues to have flatus. +BM. Objective: [...] to floor tomorrow Kristie Cruz MD Pager [phone] * Chris Badillo MD - 12/19/2017 6:31 [...] 52 y.o. female : 1965 MRN# : [id number] PROCEDURE: Procedure(s) with comments: JAMIL PELVECTOMY - [...] transition to oral analgesics Anesthesia Pain pager: [phone] Allergies Allergen Reactions Cephalexin SEE COMMENTS Face [...] 20 mmol Intravenous ONCE Continuous Infusions: bupivacaine OBIEE CONSULTANT 0.125% in NS 50mL epidural infusion syr [...] continue ICU care Kristie Cruz MD Pager [phone] * Harry Moore MD - 12/18/2017 6:47 [...] - 100 MG/DL Final Medications: gtts bupivacaine OBIEE CONSULTANT 0.125% in NS 50mL epidural infusion syr [...] ASSESSMENT NOTE Patient Name: Beata Kaiser Room/Bed: [place] [address] Admitting Diagnosis: Pelvic mass [R19.00] Pelvic mass [...] Tub: Tub/Shower Unit Prior Function Level Of Howell: Independent with ADLs and functional transfers Lives [...] address most appropriate level of rehabilitation placement [phone]). Therapist: Tanya Spain OT Date: 12/17/2017 * [...] with modifications to session;Patient encouraged to use OBIEE CONSULTANT/PNC (IV) Precautions: Epidural,NGT, 1 MANNY drain L [...] Current Oral Intake: NPO Estimated Calorie Needs: 3264-5858 (30-35 kcals/kg per DBW 65.8 kg ) [...] am. Pt reports she was eating well RED LEADER and has had a stable weight. EMR [...] 72 Hours Nneka Thompson MS, RD, LD, [facility] Pager [phone] Office [phone] * Gagan Dunlap, DO - 12/17/2017 11:57 AM CDT Formatting of this note may be different from the original. Anesthesiology Acute Pain Service Date of Service: 12/17/2017 Name: Beata Kaiser is a 52 y.o. female : 1965 MRN# : [id number] PROCEDURE: Procedure(s) with comments: JAMIL PELVECTOMY - CASE LENGTH 5 HOURS CYSTORRHAPHY AND BLADDER NECK REPAIR, CYSTOSCOPY, LEFT ILIAC EXPOSURE POD #: 3, PCEA day 2 ANALGESIA TECHNIQUE Epidural catheter: Bupi 0.125% ADJUNCT ANALGESIA MEDICATIONS dilaudid acetaminophen PO gabapentin TREATMENT PLAN Continue use of epidural for pain management and discontinue OBIEE CONSULTANT and convert to dilaudid PRN. Bolused epidural with 1% lidocaine and increased concentration now that hemodynamically stable. Anesthesia Pain pager: [phone] Allergies Allergen Reactions Cephalexin SEE COMMENTS Face [...] tube QDAY before breakfast Continuous Infusions: bupivacaine OBIEE CONSULTANT 0.125% in NS 50mL epidural infusion syr [...] clean and nontender Associated attestation - Aimee Akien MD - 12/17/2017 2:12 PM CDT ATTESTATION [...] M.Div, BCC - 12/17/2017 11:30 AM CDT Truck Driver'S Offsider Note: Admit Date: 12/13/2017 Truck Driver'S Offsider attempted to meet with patient, but pt was sleeping and did not awaken to her name. No family members were present. Please page or use consult order if patient or family requests visit. Truck Driver'S Offsider will continue to follow. Date/Time: User: Pager: [phone] 12/17/2017 1:45 PM Melba Forbes M.Div [facility] PCU 2 PCU * Adrienne Zarate MD [...] continue ICU care Adrienne Zarate MD Pager [phone] * Casa George MD - 12/17/2017 8:43 [...] - 100 MG/DL Final Medications: gtts bupivacaine OBIEE CONSULTANT 0.0625% in NS 50mL epidural infusion syr [...] 52 y.o. female : 1965 MRN# : [id number] PROCEDURE: Procedure(s) with comments: JAMIL PELVECTOMY - CASE LENGTH 5 HOURS CYSTORRHAPHY AND BLADDER NECK REPAIR, CYSTOSCOPY, LEFT ILIAC EXPOSURE POD #: 2, PCEA day 1 ANALGESIA TECHNIQUE Epidural catheter: bupivacaine 0.0625% ADJUNCT ANALGESIA MEDICATIONS dilaudid acetaminophen PO gabapentin TREATMENT PLAN Continue use of epidural for pain management and discontinue OBIEE CONSULTANT and convert to dilaudid PRN Anesthesia Pain pager: [phone] Allergies Allergen Reactions Cephalexin SEE COMMENTS Face [...] SOLP (Cabinet Override) NOW Continuous Infusions: bupivacaine OBIEE CONSULTANT 0.0625% in NS 50mL epidural infusion syr [...] George MD Pager [phone] Associated attestation - Anadn Tirado MD - 12/16/2017 8:12 PM CDT [...] Pain much better controlled with epidural and OBIEE CONSULTANT. Complains of a sore throat and some [...] continue ICU care Adrienne Zarate MD Pager [phone] * Valerie Couch MD - 12/16/2017 6:52 [...] on 2L Pulmonary toilet, encourage IS GI/FEN HNH-iqodrcbsxsuy-Xcv 2.9, ARBF NGT: 1L pepcid Zofran prn [...] - 100 MG/DL Final Medications: gtts bupivacaine OBIEE CONSULTANT 0.0625% in NS 50mL epidural infusion syr HYDROmorphone (DILAUDID) OBIEE CONSULTANT 11 mg/NS 55mL infusion syr (std conc)(premade [...] epidural -- PNC -- gabapentin -- dilaudid OBIEE CONSULTANT depression -- Wellbutrin -- buspar CV Mildly [...] - 100 MG/DL Final Medications: gtts bupivacaine OBIEE CONSULTANT 0.0625% in NS 50mL epidural infusion syr HYDROmorphone (DILAUDID) OBIEE CONSULTANT 11 mg/NS 55mL infusion syr (std conc)(premade [...] (ZOFRAN) IV Q6H PRN Vania Hay MD 0221 Associated attestation - Harris Hurst MD - [...] the resident physician, nursing, RT, pharmacy and j2ee consultant staff. I directly supervised the resident [...] PhD GALA FACS Surgical Critical Care Pager [phone] Date: 12/16/2017 * Casa George MD - 12/15/2017 6:27 PM CDT Formatting of this note may be different from the original. 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 Broosk Patient Active Problem List Diagnosis Date Noted [...] change performed. Net weight of drainage on htb=598cw. Ortho team paged (Dr. Swanson). * Gagan Dunlap DO - 12/15/2017 2:36 PM CDT Formatting of this note may be different from the original. Anesthesiology Acute Pain Service Date of Service: 12/15/2017 Name: Beata Kaiser is a 52 y.o. female : 1965 MRN# : [id number] PROCEDURE: Procedure(s) with comments: JAMIL PELVECTOMY - CASE LENGTH 5 HOURS CYSTORRHAPHY AND BLADDER NECK REPAIR, CYSTOSCOPY, LEFT ILIAC EXPOSURE POD #: 1 ANALGESIA TECHNIQUE Epidural catheter: bupivacaine 0.0625% Bolus: 4 mL Delay: 20 minutes Basal Infusion: 6 mL/hr ADJUNCT ANALGESIA MEDICATIONS dilaudid acetaminophen PO gabapentin Ketamine gtt TREATMENT PLAN Continue use of OBIEE CONSULTANT for pain management, Continue use of epidural for pain management and Modification in therapy to improve pain control Epidural placed today once determined patient would not be therapeutically anticoagulated. Added ketamine gtt as adjunct. Continue dilaudid OBIEE CONSULTANT. Will dc the PNC catheter since epidural in place. Anesthesia Pain pager: [phone] Allergies Allergen Reactions Cephalexin SEE COMMENTS Face [...] tube QDAY before breakfast Continuous Infusions: bupivacaine OBIEE CONSULTANT 0.0625% in NS 50mL epidural infusion syr bupivacaine OBIEE CONSULTANT PNC 0.125% infusion syringe HYDROmorphone (DILAUDID) OBIEE CONSULTANT 11 mg/NS 55mL infusion syr (std conc)(premade [...] continue ICU care Adrienne Zarate MD Pager [phone] * Ruma Reynolds RN - 12/15/2017 12:30 [...] provide intervention as able. Joanne Abernathy, OTR/L [phone] * Valerie Couch MD - 12/15/2017 9:29 [...] epidural -- PNC -- gabapentin -- dilaudid OBIEE CONSULTANT depression -- Wellbutrin -- buspar CV Mildly [...] 12/15/17 0720 Gross per 24 hour Intake 25747.76 ml Output 5880 ml Net 5520.76 ml [...] - 100 MG/DL Final Medications: gtts bupivacaine OBIEE CONSULTANT PNC 0.125% infusion syringe HYDROmorphone (DILAUDID) OBIEE CONSULTANT 11 mg/NS 55mL infusion syr (std conc)(premade [...] (ZOFRAN) IV Q6H PRN Harry Moore MD 7200 ATTESTATION.. I have seen, personally fully evaluated, [...] functional in the mean time a Fentanyl OBIEE CONSULTANT at 10mcg q10min was given to the patient to help decrease her pain. Keith Garcia DO CA-1, Anesthesiology Pager [phone] * Eunice Helms, LELAND - 12/14/2017 12:49 [...] today for hemipelvectomy - Keep NPO Anthony [phone] * Mauro Melgoza, RN - 12/14/2017 5:42 [...] Date: 12/13/2017 Banuelos AC=Airway clearance AM=Aerosolized medication BA=[place] aerosol DB&C=Deep breathe & cough FEV1=Forced expiratory volume in first second) IC=Inspiratory capacity LE=Lung expansion MDI=Metered dose inhaler Neb=Nebulizer O2=Oxygen Oxim=Oximetry PEFR=Peak expiratory flow rate PLANT ELECTRICAL ENGINEER=Rapid Response Team * Mita Meyer, SANJAY - [...] 24 hours): FSBS (Manual): (!) 160 (12/30/17 8259) Glucose: (!) 165 (12/30/17 6086) POC Glucose (Download): (!) 160 (12/30/17 7389) I have examined the patient, and there [...] Pager Consult Orders: CONSULT COLO-RECTAL SURGERY PHYSICIAN [[id number]] ordered by Montez Agudelo DO at 12/26/17 [...] plan of care. Ramos Cheatham DO Pager: [phone] __ HPI: Beata Kaiser is a 52 [...] (!) 215 (12/26/17 1742) Ramos Cheatham DO Pager:[phone] * Spencer Purcell MD - 12/14/2017 6:04 [...] Marino Real MD PGY-2 Urology Resident Pager: [phone] __ HPI: Beata Kaiser is a 52 [...] for hemipelvectomy -Clear liquid diet, NPO at HI -Bowel prep -Neomycin/erythromycin oral -heparin drip for DVT, stop at MN prior to procedure -Vascular surgery to assist and is aware -Urology for stent placement prior to procedure and is aware -General surgery consult for intraoperative assistance -Labs -Resume home meds -4 units pRBCs held for OR tomorrow Patient discussed with Dr. Ashkan Zarate MD [phone] History of Present Illness: Beata Kaiser is [...] nerve or vessel damage were discussed. Indications: Shell Coremaker IV therapy, TPN Procedure: Under sterile conditions [...] With My Assessment? Yes Wound Base Assessment Black;[place] Surrounding Skin Assessment Intact Wound Site Closure [...] BSN Wound Ostomy Nursing Consult Service Office: [phone] Pager: [phone] After hours Wound/Ostomy team pager : [phone] * Emma Payton RN - 01/07/2018 4:30 [...] - Diabetes Education Nursing Clinical Excellence [facility] [email or web address] [phone] office [phone] pager * Nani Mcelroy RN - 01/03/2018 9:31 AM CDT Associated Order(s): CONSULT WOUND/OSTOMY TEAM Wound Ostomy Note NAME:Beata Kaiser :1965 AGE: 52 y.o. ADMISSION DATE: 12/13/2017 DAYS ADMITTED: LOS: 21 days Reason for Consult/Visit: ostomy education Pt seen 12/31 Will follow up as appropriate for education Nani Mcelroy RN, BSN Wound Ostomy Nursing Consult Service Office: [phone] Pager: [phone] After hours Wound/Ostomy team pager : [phone] * Kalie Sibley MBBS - 12/31/2017 4:44 [...] with stress hyperglycemia A1c 6.5 , controlled RED LEADER regimen: Metformin thousand milligrams twice a day, jardiance 25 mg daily Hypoglycemic episodes on this regimen: None and not checking blood sugars at home Follows up with for diabetes management: Primary care physician at [facility] Diabetic-complications assessment: Retinopathy: None Peripheral neuropathy: Yes on treatment Autonomic neuropathy: None Nephropathy: None Macrovascular complications: None Risk factor assessment: Last lipid profile - None on file On ACEi/ARB: Yes On Statin: yes 2. Hypothyroidism RED LEADER 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 daily TSH 2.1 [...] or lesions noted Pulses: 2+ and symmetric WATER USE INSPECTOR: Nonfocal, moves all extremities Lab: Recent Labs [...] reviewed. Kalie Sibley Endocrine Fellow Pager # [phone] 12/31/2017 Associated attestation - Marco Payne MD [...] Text paged Harry Moore, Surgery Ortho resident digital content specialist ([phone]) to ask if they had considered an Endocrine consult to assist with managing blood glucose readings. Today pt's BG has ranged from 268 to 351 and with the exception of yesterday morning when pt was NPO for surgery, she has been that high for the last couple of days. Emma Payton, BSN, RN Clinical Nurse Coordinator - Diabetes Education Nursing Clinical Excellence [facility] [email or web address] [phone] office [phone] pager * Nneka Thompson RD - 12/29/2017 [...] Units/ sodium bicarbonate 650 mg (#) PRN (Building Carpenter Helper from Rx) Electrolyte Treatments: None given yesterday [...] 12/14. Pt reported she was eating well RED LEADER and has had a stable weight. Pt's [...] fellow RD, all of Pt's intake of Nebo shakes may not be included in the [...] TPN to be held in the [facility] fridge overnight until Pt has [...] gm/kg DBW) Nneka Thompson MS, RD, LD, [facility] Pager [phone] Office [phone] * Anita Everett RN - 12/28/2017 1:43 [...] cut pouch. Explained to pt that an shank sander will start teaching once the stoma has been placed. Questions answered. Anita Everett, RN, BSN, CMSRN, CWON Wound Ostomy Nursing Consult Service Office: [phone] Pager: [phone] After Hours Wound/Ostomy Team Pager: [phone] * Emma See, RD - 12/28/2017 12:34 [...] Diet Order: Six Small Meals Oral Supplement: Nebo Breakfast Essentials No Sugar Added, Protein Powder, TID Intake (calories) Daily Average : 600 kilocalories (35% est needs) Intake (protein) Daily Average : 33 grams (33% est needs) Current EN Order: Isosource 1.5 @ 80ml/hr x's 8 hrs (6864-8648). At goal will provide: 960 kcal (58% [...] counted as part of leslie count. Recommendation: [id number] Consistent Carb Diet. Protein shakes between meals, made with Nebo Breakfast Essentials (NO SUGAR ADDED), skim milk, [...] Hours Status: Not met;Ongoing Emma See, KAYA #[phone]. * Emma Payton RN - 12/28/2017 12:30 [...] how she struggles to manage her diabetes. Color Buffer offered to follow up with instruction of [...] Coordinator - Diabetes Education Nursing Clinical Excellence [facility] [email or web address] [phone] office [phone] pager * Emma Payton RN - 12/28/2017 8:06 AM CDT Color Buffer spoke with Dr. Marcelino with consulted medicine [...] Name: Beata Kaiser Admit Date: 12/13/2017 Room: [place] [address] Reason for consult, "Hemipelvectomy, chronic pain, acute [...] medications and calcintonin. Virgen K, Anastasiia S, [place]ial[place] T, Predavidl H, Castro C, Catarina M, et al. Prevention of phantom limb pain and cortical reorganization in the early phase after amputation in humans. Soc Neurosci Abstr 2001; 28: 517243 NMDA antagonist memantine was used with good results perioperative and acute post-operatively. Calcitonin in phantom limb pain: a double-blind study Author: Ashwin Johnson Journal: Pain ([place]) ISSN: [id number] Date: 09/1991 Volume: 48 Issue: 1 Starting page number: [phone] Calcitonin infusions also showed good outcomes with [...] - Gabapentin 800 mg PO twice daily, 9106-3130 - Gabapentin 600 mg PO twice daily, 0265-1882 Anticipated D/C Planning: Non-pharmacological interventions. Multi-modal oral pain regimen. Summary: Ms. 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 Thank you for allowing our service to participate in the care of this patient. Please page with questions/concerns, team pager [phone]. Jasper Betts, MSN, RN- Clinical Nurse Coordinator Pain Management [phone] Current Medication Regimen: Current Facility-Administered Medications: acetaminophen [...] Adrienne Zarate MD, 25 mg at 12/19/17 4099 fentaNYL citrate PF (SUBLIMAZE) injection 50-100 mcg, [...] filled at one pharmacy. Last prescriptions written, [facility] [phone] [facility] [address] Dr[address] Colton Welch 12/03/2017 1 12/03/2017 OXYCODONE HCL 5 MG TABLET 75.0 7 CA ARTI [id number] [facility] ( 9341) Assessment: (W) Words to describe pain: Burning, I can still feel my leg and foot (I) Intensity of pain: severe Patient's personal pain goal: mild (L) Location of pain: Left lower extremity (D) Duration of pain: constant (A) Aggravating/Alleviating factors: Constant / not much, I think gabapentin is helping Last Bowel Movement: 12/26/2017 Opioid Calculations: Date: RED LEADER PT to surgery Oxycodone 60 mg Total [...] plan of care. Ramos Cheatham DO Pager: [phone] ATTESTATION I personally performed the banuelos portions [...] 0401) POC Glucose (Download): (!) 215 (12/26/17 1741) Ramos Cheatham DO Pager:[phone] * Nneka Thompson RD - 12/25/2017 4:52 [...] wt of 55.3kg.) Oral Diet Order: Diabetic 1229-8497 Kcal/day (60 g Carb/meal, 30 g Carb/HS [...] 12/14. Pt reported she was eating well RED LEADER and has had a stable weight. (Pt's [...] 72 Hours Nneka Thompson MS, RD, LD, [facility] Pager [phone] Office [phone] * Halima Miranda - 12/24/2017 3:42 PM CDT Associated Order(s): CONSULT PSYCHOLOGY Formatting of this note may be different from the original. 3978-9140 Pt was seen b/s for initial eval with no family or significant others present. Diagnosis: F33.0 Major depressive disorder, recurrent, mild; F41.1 Generalized anxiety disorder Requesting Physician:Elliot/Ashkan Reason for Request: Depression, coping Relevant History: The following history was taken from available medical records unless otherwise indicated. Pt is a 52 y.o., , female, RH admitted on 12/13/2017 to [facility] for a scheduled hemipelvectomy and cystoscopy with [...] and 2 of her adult children in [place], [place]. Pt identified her grandchildren and family [...] Ph.D. Neurorehabilitation Psychology Postdoctoral Fellow Pager #: [phone] * Nani Mcelroy RN - 12/23/2017 1:53 [...] Type:: Wound Description (Comments): Wound Base Assessment Moist;[place];Yellow 12/23/2017 1:00 PM Surrounding Skin Assessment [place];Edema 12/23/2017 1:00 PM Wound Length (cm) (Wound [...] BSN Wound Ostomy Nursing Consult Service Office: [phone] Pager: [phone] After hours Wound/Ostomy team pager : [phone] * Berto Caldwell, - 12/23/2017 12:20 PM CDT Associated Order(s): CONSULT ADULT PSYCHIATRY PHYSICIAN Formatting of this note may be different from the original. PSYCHIATRY CONSULT NOTE Room/Bed: [id number] [place] [address] Admission Date: 12/13/2017 LOS: 10 days Consult [...] between 8am and 3pm on weekends at [phone]. Otherwise, page the university relations vice president digital content specialist. Chief Concern: "feeling a little disoriented" History [...] Notes having 3 grandchildren. Was working making [employer] at the [employer]. Social History Social History Marital status: Spouse [...] fair, appropriate for conversation Cognition: average Language: khmer, fluent Fund of knowledge and vocabulary: average [...] and between 8am and 3pm on weekends [phone]. Otherwise, page the university relations vice president digital content specialist. Staff name: Adrienne Negron DO Date: 12/23/2017 [...] Nani Lynch, Division of Infectious Diseases Pager [phone] History of Present Illness Beata Kaiser is [...] status/area of residence: lives with her Job/occupation: [employer] Travel history: [place] in Sep 2016 Environmental/outdoor/food exposures: hospitalized from [...] atelectasis and/or pneumonia. Dominique Nelson MD Pager [phone] Infectious Diseases Fellow * Nani Mcelroy RN [...] and non-insulin dependent diabetes mellitus admitted to [facility] on 12/13/17 for scheduled left hemipelvectomy for [...] BSN Wound Ostomy Nursing Consult Service Office: [phone] Pager: [phone] After hours Wound/Ostomy team pager : [phone] * Luis Sargent MD - 12/21/2017 9:49 AM CDT Associated Order(s): CONSULT INTERNAL MEDICINE PHYSICIAN Formatting of this note may be different from the original. General Consult Note Admission Date: 12/13/2017 LOS: 8 days Reason for Consult: Hyponatremia Consult type: Opinion with orders Assessment/Plan Beata Kaiser is a 52 y.o. female Hx of hypothyroidism and non-insulin dependent diabetes mellitus who presented to [facility] on 12/13/17 for scheduled left hemipelvectomy for [...] needs further assistance, the service should page [phone] (24 hours a day/7 days a week) to discuss the case. History of Present Illness: Beata Kaiser is a 52 y.o. female Hx of hypothyroidism and non-insulin dependent diabetes mellitus who presented to [facility] on 12/13/17 for scheduled left hemipelvectomy for [...] Pertinent radiology reviewed. Luis Sargent MD Pager [phone] * Hawk Jennings MD - 12/20/2017 11:12 AM CDT Associated Order(s): CONSULT REHABILITATION MEDICINE PHYSICIAN Formatting of this note may be different from the original. Physical Medicine & Rehabilitation Consult Note Date of Service: 12/20/2017 Beata Kaiser is a 52 y.o. female. : 1965 MRN# : [id number] Primary Insurance: [facility] Secondary Insurance: Tertiary Insurance: Financial Class: Commercial [...] a 52 y.o. female admitted to [facility] on 12/13/2017 with the following issues: S/p [...] acute inpatient rehabilitation. Other recommendations Impaired gait/mobility: RED LEADER pt was independent Currently requiring total assist Will benefit from continued work with PT to address mobility deficits Impaired ADL: RED LEADER pt was independent Currently requiring total assist [...] concerns. Hawk Jennings MD Rehab Consult Pager: [phone] History of Present Illness Hospital Course: Beata Kaiser is a 52 yo F who presented to [facility] on 12/13/17 for scheduled left hemipelvectomy for [...] Pt has had ongoing pain issues since OBIEE CONSULTANT removed. Pt has been working with PT/OT [...] 10:11 AM Attending physician * Ivette Wade APRN-WATER USE INSPECTOR - 12/20/2017 6:50 AM CDT Associated Order(s): CONSULT SHUTTLE TRUCK DRIVER, WATER USE INSPECTOR Formatting of this note may be different from the original. Inpatient Psychiatric Clinical Nurse Specialist- Initial Consult Pt. Name: Beata Kaiser Room: [place] [address] LOS: 7 Reason for consult: Patient s/p [...] are any concerns or questions. Ivette Wade [facility] Pager [phone] Office [phone] * Vania Hay MD - 12/14/2017 7:33 [...] placed, anesthesia managing. Tylenol, PRN fentanyl, gabapentin, RED LEADER buspar & wellbutrin CV: Currently HDS, no pressor requirement, continue to monitor, no cardiac history PULM: On RA, satting high 90s, aggressive pulmonary toilet GI: NPO, NGT : Melchro in place for accurate Is & Os [...] MIN PRN Current Infusions: Glucose Monitoring: Glucose: (aMtt) 263 (12/14/17 165) Recent Laboratory Studies: Recent [...] -- 23.8 22.4 22.4 20.8* 19.2* 17.8* [id number] -- -- -- -- 98.8 99.2* 99.1* 99.0 99.4* 97.0 Vania Hay MD Pager: [phone] Associated attestation - Ken Carolina MD - [...] Date: 01/14/2018 Plan Anticipate pt discharging to [facility] at 3:30pm. Micki reviewed EMR and met with team. Pt is medically stable to discharge to [facility]. Interventions ? Support Support: Pt/Family Updates re:POC or DC Plan Micki updated pt regarding discharge planning. ? Info or Referral Information or Referral to Community Resources: Diagnosis-Related Community Resources ? Discharge Planning Micki spoke with Julia in admissions at [facility]. Insurance authorization has been received. Pt [...] Kaiser. Transportation Name, Phone and Availability #2: [phone]. Does the patient use Medicaid Transportation?: No ? Next Level of Care (Acute Psych discharges only) ? Discharge Disposition Durable Medical Equipment No service has been selected for the patient. Destination - Selection Complete Service Request Status Selected Specialties Address Phone Number Fax Number [facility] Selected Inpatient Rehabilitation Facility [address] [place] [address] [phone] Home Care No service has been selected [...] tachycardia. Informed MICKI that discussed case with director medical science as well and no concerns at this time. Per MICKI patient is getting wound vac dressing change at 1000 this morning. MICKI aware that still waiting on insurance authorization. 1359: Per Gissell (UR/CM for [facility]) patient has been approved for inpatient rehab. 1422: Notified Erika EAGLE) that rehab able to admit today. Transportation will be scheduled for 1530 via stretcher van with [facility]. MICKI to notify patient's primary RN of discharge time, rehab bed assignment of [phone] and unit phone# for report (). Please leave in any functioning IV access for transition to 's IP rehab unit. URMILA Catalan RN Inpatient Rehab Admission Nurse ([phone]) * Patient Education - Amanda Juares - [...] Date: 01/11/2018 Plan Anticipate pt discharging to [facility] when medically stable. Micki reviewed EMR and met with team. Pt to have wound vac changed on W and F. Pt will need to be off all IV pain meds, and continuous fluids prior to admission at [facility]. Interventions ? Support Support: Pt/Family Updates [...] Kaiser. Transportation Name, Phone and Availability #2: [phone]. Does the patient use Medicaid Transportation?: No ? Next Level of Care (Acute Psych discharges only) ? Discharge Disposition Durable Medical Equipment No service has been selected for the patient. Destination No service has been selected for the patient. Home Care No service has been selected for the patient. Dialysis/Infusion No service has been selected for the patient. Erika Werner [facility] [place][phone] * Operative Report (DICTATED ONLY) - Tamiko Luther MD - 01/11/2018 11:24 AM CDT THE [address] [id number] PATIENT NAME: BEATA KAISER MR#/PT#: [id number] Page 2 OPERATIVE REPORT DATE OF OPERATION: 01/10/2018 SURGEON: Tamiko Luther MD HAND FOLDER(S): Adrienne Zarate MD PREOPERATIVE DIAGNOSIS: Draining wound, [...] REMOVED: none MD SARAH Guy / URIEL /[id number] cc: - Tamiko Luther MD * Anesthesia [...] Units/ sodium bicarbonate 650 mg(#) PRN ( Building Carpenter Helper from Rx), simethicone Q6H PRN Diagnostic Tests [...] 52 y.o. female : 1965 MRN# : [id number] DATE OF OPERATION: 01/10/2018 Date: 01/10/2018 Preoperative [...] PACU - stable Adrienne Zarate MD Pager [phone] Associated attestation - Tamiko Luther MD - 02/07/2018 1:54 PM CDT I performed the procedure with the resident. * Operative Report (DICTATED ONLY) - Spencer Purcell MD - 01/10/2018 10:06 AM CDT Formatting of this note may be different from the original. THE [address] [address] PATIENT NAME: BEATA KAISER MR#/PT#: [id number] Page 2 OPERATIVE REPORT DATE OF OPERATION: 01/10/2018 SURGEON: Spencer Purcell MD HAND FOLDER(S): Davey Dove MD PREOPERATIVE DIAGNOSIS: Chondrosarcoma. POSTOPERATIVE [...] exchanged under sterile technique for a 22- Ugandan catheter with 10 mL sterile water in [...] Dictated by: Davey Dove MD / URIEL /[id number] cc: - Spencer Purcell MD * Care [...] URMILA Catalan RN Inpatient Rehab Admission Nurse ([phone]) * Patient Education - ShannonDenise perea - [...] Date: 01/05/2018 Plan Anticipate pt discharging to [facility] when medically stable. Sw reviewed EMR [...] [facility]. Transportation Name, Phone and Availability #2: [phone]. Does the patient use Medicaid Transportation?: No ? Next Level of Care (Acute Psych discharges only) ? Discharge Disposition Durable Medical Equipment No service has been selected for the patient. Destination No service has been selected for the patient. Home Care No service has been selected for the patient. Dialysis/Infusion No service has been selected for the patient. [place]ajose [place], [facility] [phone] * Patient Education - Jami Dejesus RN - 01/05/2018 11:52 AM CDT Beata Kaiser accepted education and was receptive. she verbalized understanding. The following was discussed: Diet and oral pain regimen. Follow up should occur as needed. 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 Enjoys fishing, doing yard work and being [...] URMILA Catalan RN Inpatient Rehab Admission Nurse ([phone]) * Case Mgmt DC Plan - Julia [...] URMILA Catalan RN Inpatient Rehab Admission Nurse ([phone]) * Patient Education - Amanda Juares - [...] (TPN) 65 mL/hr at 12/30/172027 fentaNYL (SUBLIMAZE) OBIEE CONSULTANT 550 mcg/ NS 55 mL infusion syr (std conc)(premade ) lactated ringers infusion Stopped (12/30/17 1440) PRN and Respiratory Meds:alum/mag hydroxide/simeth Q6H PRN, calcium carbonate Q4H PRN, diazePAM Q6H PRN, diphenhydrAMINE Q6H PRN OR [DISCONTINUED] diphenhydrAMINE Q6H PRN, fentaNYL citrate PF Q1H PRN, naloxone PRN, ondansetron (ZOFRAN) IV Q6H PRN, oxyCODONE Q3H PRN, pancrelipase 20,000 Units/ sodium bicarbonate 650 mg(#) PRN (Building Carpenter Helper from Rx) Diagnostic Tests Hematology: Lab Results [...] may be different from the original. THE [address] [address] PATIENT NAME: BEATA KAISER MR#/PT#: [id number] Page 3 OPERATIVE REPORT DATE OF OPERATION: 12/30/2017 SURGEON: Aimee Mccollum DO HAND FOLDER(S): DO Montez Coyne DO PREOPERATIVE DIAGNOSIS: Nonhealing [...] Dictated by: Herberth Dean DO / MEDPing /[id number] cc: - Aimee Mccollum DO * Procedures (Immed Post or Bedside) - Montez Agudelo DO - 12/30/2017 11:42 AM CDT Formatting of this note may be different from the original. Brief Operative Note Name: Beata Kaiser is a 52 y.o. female : 1965 MRN# : [id number] DATE OF OPERATION: 12/30/2017 Date: 12/30/2017 Preoperative [...] PACU - stable Montez Agudelo DO Pager [phone] * Case Mgmt DC Plan - Erika Werner - 12/29/2017 3:58 PM CDT Formatting of this note may be different from the original. Case Management Progress Note NAME:Beata Kaiser : AGE: 52 y.o. ADMISSION DATE: 12/13/2017 DAYS ADMITTED: LOS: 16 days Todays Date: 12/29/2017 Plan Pt to OR for colostomy tomorrow. Anticipate pt discharging to [facility] when medically stable. Sw reviewed EMR and met with team. Interventions ? Support Support: Pt/Family Updates re:POC or DC Plan Sw met with pt, pt's , and pt's daughter Mica. Pt is now interested in [facility] at discharge. ? Info or Referral ? Discharge Planning Sw called Julia in admissions at [facility]- pt is on the list for Wednesday next week. ? Medication Needs ? Financial ? Legal ? Other Disposition ? Expected Discharge Date Expected Discharge Date: 01/03/18 ? Transportation Does the patient need discharge transport arranged?: No Transportation Name, Phone and Availability #1: Marvin Kaiser. Transportation Name, Phone and Availability #2: [phone]. Does the patient use Medicaid Transportation?: No ? Next Level of Care (Acute Psych discharges only) ? Discharge Disposition Durable Medical Equipment No service has been selected for the patient. Destination No service has been selected for the patient. Home Care No service has been selected for the patient. Dialysis/Infusion No service has been selected for the patient. Erika Werner [facility] [phone] * Care Plan - Anita [...] Kaiser. Transportation Name, Phone and Availability #2: [phone]. Does the patient use Medicaid Transportation?: No [...] [facility]. Transportation Name, Phone and Availability #2: [phone]. Does the patient use Medicaid Transportation?: No ? Next Level of Care (Acute Psych discharges only) ? Discharge Disposition Durable Medical Equipment No service has been selected for the patient. Destination No service has been selected for the patient. Home Care No service has been selected for the patient. Dialysis/Infusion No service has been selected for the patient. Erika Werner [facility] [phone] * Critical Results - Emely Paredes - 12/24/2017 10:48 AM CDT Critical result or procedure called (document test and value, and read back): Positive blood cultures on right arm drawn /5 at 1305. Gram positive cocci resembling Strep. Time MD/LAWN AND GARDEN TECHNICIAN Notified: 1048 MD/LAWN AND GARDEN TECHNICIAN Name: Dr. Zarate notified at this time MD/LAWN AND GARDEN TECHNICIAN Response/Orders Given: calling infectious disease to notify [...] [facility]. Transportation Name, Phone and Availability #2: [phone]. Does the patient use Medicaid Transportation?: No ? Next Level of Care (Acute Psych discharges only) ? Discharge Disposition Durable Medical Equipment No service has been selected for the patient. [facility] Destination No service has been selected for the patient. Home Care No service has been selected for the patient. Dialysis/Infusion No service has been selected for the patient. Erika Werner [facility] [phone] * Patient Education - Kerline [...] with pt at bedside regarding discharge planning. [facility] is out of network. Micki provided pt with in network lists of SNF in both [place] area and near pt's home. Sw will follow up with pt tomorrow. ? Info or Referral ? Discharge Planning tasked [facility] to email list of in network facilities to Sw. ? Medication Needs ? Financial ? Legal ? Other Disposition ? Expected Discharge Date Expected Discharge Date: 12/27/17 ? Transportation Does the patient need discharge transport arranged?: No Transportation Name, Phone and Availability #1: Marvin Kaiser. Transportation Name, Phone and Availability #2: [phone]. Does the patient use Medicaid Transportation?: No [...] Alanna Robertson - 12/22/2017 2:43 PM CDT MECHANICAL TECHNICAL SERVICE SPECIALIST Note Emailed [facility] with a in-network list of SNF facilities per the request of ZULEIKA Redd [facility] For additional assistance please contact ZULEIKA Redd *[phone] * Patient Education - Hawk Ortega RN [...] like Sw to [facility] a [facility] [place], as they are from there. Family has not had time to review other options. Sw faxed referral to [facility]. Address: [address] [place] [phone] Primary Sw will continue to follow for discharge planning. ? Medication Needs ? Financial ? Legal ? Other Disposition ? Expected Discharge Date Expected Discharge Date: 12/23/17 ? Transportation Does the patient need discharge transport arranged?: No Transportation Name, Phone and Availability #1: Marvin Kaiser. Transportation Name, Phone and Availability #2: [phone]. Does the patient use Medicaid Transportation?: No ? Next Level of Care (Acute Psych discharges only) ? Discharge Disposition Durable Medical Equipment No service has been selected for the patient. [facility] Destination No service has been selected for the patient. [facility] Home Care No service has been selected for the patient. Dialysis/Infusion No service has been selected for the patient. Mica Pruitt [facility] [phone] * Patient Education - Wilda [...] [facility]. Transportation Name, Phone and Availability #2: [phone]. Does the patient use Medicaid Transportation?: No ? Next Level of Care (Acute Psych discharges only) ? Discharge Disposition Durable Medical Equipment No service has been selected for the patient. Destination No service has been selected for the patient. Home Care No service has been selected for the patient. Dialysis/Infusion No service has been selected for the patient. Erika Werner, [facility] [phone] * Care Plan - Monica [...] of pain Outcome: Goal Ongoing Encourage Epidural OBIEE CONSULTANT Problem: Tissue Perfusion, Altered Goal: Adequate tissue [...] may be different from the original. THE [address] [address] PATIENT NAME: BEATA KAISER MR#/PT#: [id number] Page 3 OPERATIVE REPORT DATE OF OPERATION: 12/14/2017 SURGEON: Spencer Purcell MD HAND FOLDER(S): Sarah Schwab MD PREOPERATIVE DIAGNOSIS: Left retroperitoneal/pelvic [...] with all pressure points padded. A lubricated 21-Ugandan cystoscope with 21-Ugandan sheath was assembled and placed in the bladder. 360 degree panendoscopy was performed. There was no masses or lesions present. There was no stone, diverticula, trabeculations, or signs of malignancy within the bladder itself. Both ureteral orifices were identified. The left ureteral orifice was intubated with a 0.38 sensor wire and advanced into the kidney. This was then intubated with a 5-Ugandan Pollack catheter, which was placed over the wire and then deployed. A 16-Ugandan Melchor catheter was placed in the bladder [...] subsequent muscle and cutaneous flap created. The 16-Ugandan catheter, which was seen in place revealed [...] structures and alteration in anatomy. A new 20-Ugandan catheter was placed in the bladder and infused with saline and found to have no evidence of extravasation. We then turned the remainder of the case over to the orthopedic surgery service. ESTIMATED BLOOD LOSS: 100 cc SPECIMENS REMOVED: None ATTESTATION I performed this procedure with a resident. Staff name: Spencer Purcell MD Date: 01/03/2018 Spencer Purcell MD SHAHBAZ / MEDQ /[id number] cc: - Spencer Purcell MD * Procedures [...] patient and/or family and/or designated Power of Bleaching Supervisor. I personally accomplished the pre-operative Time Out. I was personally present for the critical portions of the procedure. I directly observed the resident physician performing other appropriate portions of the procedure, discussed the case with the resident physician, and concur with the resident physician's documentation of the procedure, unless otherwise noted. Harris Hurst MD PhD GALA FACS Surgical Critical Care Pager [phone] Date: 12/16/2017 * Operative Report (DICTATED ONLY) - Tamiko Luther MD - 12/15/2017 2:29 PM CDT [address] [address] PATIENT NAME: BEATA KAISER MR#/PT#: [id number] Page 2 OPERATIVE REPORT DATE OF OPERATION: 12/14/2017 SURGEON: Tamiko Luther MD CO-SURGEON(S): MD Aimee Brambila DO Kirk Hance, MD Axel Thors, DO HAND FOLDER(S): Adrienne Zarate MD PREOPERATIVE DIAGNOSIS: Intermediate to [...] ( permanent) MD SARAH Guy / URIEL /[id number] cc: - Tamiko Luther MD - Spencer [...] tube QDAY before breakfast Continuous Infusions: bupivacaine OBIEE CONSULTANT PNC 0.125% infusion syringe HYDROmorphone (DILAUDID) OBIEE CONSULTANT 11 mg/NS 55mL infusion syr (std conc)(premade [...] * Procedures (Immed Post or Bedside) - Ardienne Zarate MD - 12/14/2017 6:40 PM CDT Formatting of this note may be different from the original. Brief Operative Note Name: Beata Kaiser is a 52 y.o. female : 1965 MRN# : [id number] DATE OF OPERATION: 12/14/2017 Date: 12/14/2017 Preoperative [...] CONTENTS FOR FROZEN Tissue Vein SURGICAL PATHOLOGY Taimko Luther MD 12/14/2017 1430 7 : SACRUM [...] much as possible Adrienne Zarate MD Pager [phone] Associated attestation - Tamiko Luther MD - 12/24/2017 1:37 PM CDT I performed the hemipelvectomy and hemisacrectomy with the resident. 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 POSTOPERATIVE DIAGNOSIS: Same. OPERATIVE PROCEDURE: 1. Repair of the left common and external iliac vein by direct venous repair within the abdominal cavity and pelvis (CPT code 19167). 2. Mobilization and exposure of the common [...] None. Pio Malagon DO AT / MED /[id number] cc: - Pio Malagon DO * Operative Report (Direct Entry) - Spencer Purcell MD - 12/14/2017 8:36 AM CDT Formatting of this note may be different from the original. OPERATIVE REPORT Name: Beata Kaiser is a 52 y.o. female : 1965 MRN# : [id number] DATE OF OPERATION: 12/14/2017 Surgeon(s) and Role: [...] of the procedure. Darius Dejesus MD Pager [phone] ATTESTATION I performed this procedure with a [...] with questions or concerns. Patient Address/Phone [address] [phone] (home) Emergency Contact Extended Emergency Contact Information Primary Emergency Contact: Marvin Kaiser [facility] Relation: Spouse Secondary Emergency Contact: Lynn Kaiser [facility] Relation: Daughter Healthcare Directive None on file. Transportation Does the patient need discharge transport arranged?: No Transportation Name, Phone and Availability #1: Marvin Kaiser. Transportation Name, Phone and Availability #2: [phone]. Does the patient use Medicaid Transportation?: No [...] Resources ? Coverage Primary Insurance: Commercial insurance ([facility]/ [facility] PPO.) ? 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 Financial Assistance Needed? None at this time. Psychosocial Needs ? Mental Health Mental Health History: No ? Substance Use History Substance Use History Screen: No ? Other None. Current/Previous Services ? PCP Della Cuellar, , ? Pharmacy [address] [address] ? Durable Medical Equipment Durable Medical Equipment [...] In the past Name of rehab location/group: [facility]. Would patient return for future services?: Yes OT: No RECREATION FACILITY MANAGER: No ? Mcfp Facility/Group Home SNF: No NH: No ? Inpatient Rehab IPR: No ? Long-Term Acute Care Hospital LTACH: No ? Acute Hospital Stay Acute Hospital Stay: In the past Was patient's stay within the last 30 days?: Yes When did patient receive care?: 2 weeks ago. Name of hospital: [facility]. Andra Tejada RN, BSN, MSN Integrative Nurse Client Relations Representative Pager [phone] in this encounter Plan of Treatment Date [...] MG/DL Specimen Performing Laboratory MAIN LAB [address] [place] [address] * POC GLUCOSE (01/14/2018 7:16 AM) Component Value Ref Range Glucose, POC 144 (H) 70 - 100 MG/DL Specimen Performing Laboratory MAIN LAB [address] [place] [address] * LIVER FUNCTION PANEL (01/14/2018 4:40 AM) [...] 8.0 G/DL Specimen Performing Laboratory MAIN LAB [address] [place] [address] * BASIC METABOLIC PANEL (01/14/2018 4:40 AM) [...] questions. Specimen Performing Laboratory Blood MAIN LAB [address] [place] [address] * CBC (01/14/2018 4:40 AM) Component Value [...] FL Specimen Performing Laboratory Blood MAIN LAB [address] [place] [address] * POC GLUCOSE (01/14/2018 2:54 AM) Component Value Ref Range Glucose, POC 218 (H) 70 - 100 MG/DL Specimen Performing Laboratory [facility]IN [facility] [address] [place] [address] * POC GLUCOSE (01/13/2018 9:07 PM) Component Value Ref Range Glucose, POC 125 (H) 70 - 100 MG/DL Specimen Performing Laboratory [facility] [address] [place] [address] * POC GLUCOSE (01/13/2018 5:46 PM) Component Value Ref Range Glucose, POC 136 (H) 70 - 100 MG/DL Specimen Performing Laboratory [facility] [address] [place] [address] * POC GLUCOSE (01/13/2018 12:09 PM) Component Value Ref Range Glucose, POC 89 70 - 100 MG/DL Specimen Performing Laboratory [facility] [address] [place] [address] * POC GLUCOSE (01/13/2018 7:40 AM) Component Value Ref Range Glucose, POC 111 (H) 70 - 100 MG/DL Specimen Performing Laboratory [facility] [address] [place] [address] * BASIC METABOLIC PANEL (01/13/2018 3:42 AM) [...] Pharmacist for questions. Specimen Performing Laboratory Blood [facility] [address] [place] [address] * CBC (01/13/2018 3:42 AM) Component Value [...] - 11 FL Specimen Performing Laboratory Blood [facility] [address] [place] [address] * TRIGLYCERIDE (01/13/2018 3:42 AM) Component Value Ref Range Triglycerides 254 (H) <150 MG/DL Specimen Performing Laboratory Blood [facility] [address] [place] [address] * POC GLUCOSE (01/13/2018 2:33 AM) Component Value Ref Range Glucose, POC 200 (H) 70 - 100 MG/DL Specimen Performing Laboratory [facility] [address] [place] [address] * POC GLUCOSE (01/12/2018 10:39 PM) Component Value Ref Range Glucose, POC 87 70 - 100 MG/DL Specimen Performing Laboratory [facility] [address] [place] [address] * POC GLUCOSE (01/12/2018 5:55 PM) Component Value Ref Range Glucose, POC 107 (H) 70 - 100 MG/DL Specimen Performing Laboratory [facility] [address] [place] [address] * POC GLUCOSE (01/12/2018 12:24 PM) Component Value Ref Range Glucose, POC 67 (L) 70 - 100 MG/DL Specimen Performing Laboratory [facility] [address] [place] [address] * POC GLUCOSE (01/12/2018 7:42 AM) Component Value Ref Range Glucose, POC 141 (H) 70 - 100 MG/DL Specimen Performing Laboratory [facility] [address] [place] [address] * BASIC METABOLIC PANEL (01/12/2018 6:12 AM) [...] Pharmacist for questions. Specimen Performing Laboratory Blood [facility] [address] [place] [address] * CBC (01/12/2018 6:12 AM) Component Value [...] - 11 FL Specimen Performing Laboratory Blood [facility] [address] [place] [address] * POC GLUCOSE (01/12/2018 2:17 AM) Component Value Ref Range Glucose, POC 184 (H) 70 - 100 MG/DL Specimen Performing Laboratory [facility] [address] [place] [address] * POC GLUCOSE (01/11/2018 8:39 PM) Component Value Ref Range Glucose, POC 196 (H) 70 - 100 MG/DL Specimen Performing Laboratory [facility] [address] [place] [address] * POC GLUCOSE (01/11/2018 5:08 PM) Component Value Ref Range Glucose, POC 128 (H) 70 - 100 MG/DL Specimen Performing Laboratory [facility] [address] [place] [address] * POC GLUCOSE (01/11/2018 11:27 AM) Component Value Ref Range Glucose, POC 160 (H) 70 - 100 MG/DL Specimen Performing Laboratory [facility] [address] [place] [address] * POC GLUCOSE (01/11/2018 7:17 AM) Component Value Ref Range Glucose, POC 218 (H) 70 - 100 MG/DL Specimen Performing Laboratory MAIN LAB [address] [place] [address] * BASIC METABOLIC PANEL (01/11/2018 3:40 AM) [...] Pharmacist for questions. Specimen Performing Laboratory Blood [facility] [address] [place] [address] * CBC (01/11/2018 3:40 AM) Component Value [...] FL Specimen Performing Laboratory Blood MAIN LAB [address] [place] [address] * POC GLUCOSE (01/11/2018 3:33 AM) Component Value Ref Range Glucose, POC 199 (H) 70 - 100 MG/DL Specimen Performing Laboratory [facility] MAIN LAB [address] [place] [address] * POC GLUCOSE (01/10/2018 8:45 PM) Component Value Ref Range Glucose, POC 297 (H) 70 - 100 MG/DL Specimen Performing Laboratory [facility] [address] [place] [address] * POC GLUCOSE (01/10/2018 6:05 PM) Component Value Ref Range Glucose, POC 290 (H) 70 - 100 MG/DL Specimen Performing Laboratory [facility] [address] [place] [address] * POC GLUCOSE (01/10/2018 1:53 PM) Component Value Ref Range Glucose, POC 140 (H) 70 - 100 MG/DL Specimen Performing Laboratory [facility] [address] [place] [address] * POC GLUCOSE (01/10/2018 10:49 AM) Component Value Ref Range Glucose, POC 87 70 - 100 MG/DL Specimen Performing Laboratory [facility] [address] [place] [address] * FLUORO MOBILE IN OR (01/10/2018 9:51 AM) Specimen Performing Laboratory FANT[facility] Yi This order has been auto finalized and does not contain a result. * POC GLUCOSE (01/10/2018 8:43 AM) Component Value Ref Range Glucose, POC 100 70 - 100 MG/DL Specimen Performing Laboratory [facility] [address] [place] [address] * POC GLUCOSE (01/10/2018 8:02 AM) Component Value Ref Range Glucose, POC 101 (H) 70 - 100 MG/DL Specimen Performing Laboratory [address] [address] * POC GLUCOSE (01/10/2018 3:39 AM) Component Value Ref Range Glucose, POC 131 (H) 70 - 100 MG/DL Specimen Performing Laboratory [facility] [address] [place] [address] * TRIGLYCERIDE (01/10/2018 3:30 AM) Component Value Ref Range Triglycerides 195 (H) <150 MG/DL Specimen Performing Laboratory Blood [facility] [address] [place] [address] * BASIC METABOLIC PANEL (01/10/2018 3:30 AM) [...] Specimen Performing Laboratory Blood MAIN LAB [address] [place] [address] * CBC AND DIFF (01/10/2018 3:30 AM) [...] Specimen Performing Laboratory Blood MAIN LAB [address] [place] [address] * POC GLUCOSE (01/09/2018 8:37 PM) Component Value Ref Range Glucose, POC 150 (H) 70 - 100 MG/DL Specimen Performing Laboratory MAIN LAB [address] [place], [place] [id number] * POC GLUCOSE (01/09/2018 7:37 PM) Component Value Ref Range Glucose, POC 135 (H) 70 - 100 MG/DL Specimen Performing Laboratory [facility] [address] [place], [place] [address] * POC GLUCOSE (01/09/2018 6:20 PM) Component Value Ref Range Glucose, POC 135 (H) 70 - 100 MG/DL Specimen Performing Laboratory [facility] [address] [place] [address] * FREE T4 (FREE THYROXINE) ONLY (01/09/2018 1:40 PM) Component Value Ref Range T4-Free 0.9 0.6 - 1.6 NG/DL Specimen Performing Laboratory Blood [facility] [address] [place] [address] * THYROID STIMULATING HORMONE-TSH (01/09/2018 1:40 PM) Component Value Ref Range TSH 16.790 (H) 0.35 - 5.00 MCU/ML Specimen Performing Laboratory Blood [facility] [facility] [address] [place] [address] * POC GLUCOSE (01/09/2018 1:25 PM) Component Value Ref Range Glucose, POC 102 (H) 70 - 100 MG/DL Specimen Performing Laboratory [facility] [address] [place], [place] [id number] * POC GLUCOSE (01/09/2018 8:12 AM) Component Value Ref Range Glucose, POC 150 (H) 70 - 100 MG/DL Specimen Performing Laboratory [facility] [address] [place] [address] * BASIC METABOLIC PANEL (01/09/2018 3:17 AM) [...] questions. Specimen Performing Laboratory Blood MAIN LAB [address] [place] [address] * CBC AND DIFF (01/09/2018 3:17 AM) [...] K/UL Specimen Performing Laboratory Blood MAIN LAB [address] [place] [address] * POC GLUCOSE (01/09/2018 3:14 AM) Component Value Ref Range Glucose, POC 154 (H) 70 - 100 MG/DL Specimen Performing Laboratory MAIN LAB [address] [place] [address] * POC GLUCOSE (01/08/2018 9:01 PM) Component Value Ref Range Glucose, POC 240 (H) 70 - 100 MG/DL Specimen Performing Laboratory MAIN LAB [address] [place] [address] * POC GLUCOSE (01/08/2018 6:20 PM) Component Value Ref Range Glucose, POC 123 (H) 70 - 100 MG/DL Specimen Performing Laboratory MAIN LAB [address] [place] [address] * POC GLUCOSE (01/08/2018 12:47 PM) Component Value Ref Range Glucose, POC 214 (H) 70 - 100 MG/DL Specimen Performing Laboratory MAIN LAB [address] [place] [address] * POC GLUCOSE (01/08/2018 7:49 AM) Component Value Ref Range Glucose, POC 113 (H) 70 - 100 MG/DL Specimen Performing Laboratory MAIN LAB [address] [place] [address] 125[address] * BASIC METABOLIC PANEL (01/08/2018 3:22 AM) [...] Pharmacist for questions. Specimen Performing Laboratory Blood [facility] [address] [place] [address] * CBC AND DIFF (01/08/2018 3:22 AM) [...] - 0.20 K/UL Specimen Performing Laboratory Blood [facility] [address] [place] [address] * POC GLUCOSE (01/08/2018 3:17 AM) Component Value Ref Range Glucose, POC 108 (H) 70 - 100 MG/DL Specimen Performing Laboratory [place] [id number] * POC GLUCOSE (01/07/2018 8:35 PM) Component Value Ref Range Glucose, POC 149 (H) 70 - 100 MG/DL Specimen Performing Laboratory [facility] [address] [place], [place] [id number] * POC GLUCOSE (01/07/2018 6:38 PM) Component Value Ref Range Glucose, POC 85 70 - 100 MG/DL Specimen Performing Laboratory [place] [id number] * POC GLUCOSE (01/07/2018 1:40 PM) Component Value Ref Range Glucose, POC 83 70 - 100 MG/DL Specimen Performing Laboratory [place] [id number] * POC GLUCOSE (01/07/2018 8:05 AM) Component Value Ref Range Glucose, POC 131 (H) 70 - 100 MG/DL Specimen Performing Laboratory [address] [address] * POC GLUCOSE (01/07/2018 3:04 AM) Component Value Ref Range Glucose, POC 173 (H) 70 - 100 MG/DL Specimen [place] [address] * LIVER FUNCTION PANEL (01/07/2018 3:02 AM) [...] Specimen Performing Laboratory Blood MAIN LAB [address] [place] [address] * BASIC METABOLIC PANEL (01/07/2018 3:02 AM) [...] Specimen Performing Laboratory Blood MAIN LAB [address] [place] [address] * CBC AND DIFF (01/07/2018 3:02 AM) [...] Performing Laboratory Blood [facility] MAIN [facility] [address] [place] [address] * POC GLUCOSE (01/06/2018 9:49 PM) Component Value Ref Range Glucose, POC 204 (H) 70 - 100 MG/DL Specimen Performing Laboratory MAIN LAB [address] [place] [address] * POC GLUCOSE (01/06/2018 5:24 PM) Component Value Ref Range Glucose, POC 223 (H) 70 - 100 MG/DL Specimen Performing Laboratory MAIN LAB [address] [place] [address] * POC GLUCOSE (01/06/2018 1:11 PM) Component Value Ref Range Glucose, POC 99 70 - 100 MG/DL Specimen Performing Laboratory [facility] MAIN LAB [address] [place] [address] * CT ABD/PELV WO CONTRAST (01/06/2018 11:43 [...] - 100 MG/DL Specimen Performing Laboratory MAIN [facility] [address] [place] [address] * POC GLUCOSE (01/06/2018 2:58 AM) Component Value Ref Range Glucose, POC 194 (H) 70 - 100 MG/DL Specimen Performing Laboratory MAIN LAB [address] [place] [id number] * BASIC METABOLIC PANEL (01/06/2018 2:52 AM) [...] Specimen Performing Laboratory Blood MAIN LAB [address] [place] [id number] * CBC AND DIFF (01/06/2018 2:52 AM) [...] - 0.20 K/UL Specimen Performing Laboratory Blood [facility] [address] [place] [address] * TRIGLYCERIDE (01/06/2018 2:52 AM) Component Value Ref Range Triglycerides 243 (H) <150 MG/DL Specimen Performing Laboratory Blood [facility] [address] [place], [place] [id number] * POC GLUCOSE (01/05/2018 9:38 PM) Component Value Ref Range Glucose, POC 276 (H) 70 - 100 MG/DL Specimen Performing Laboratory [facility] [address] [place] [address] * POC GLUCOSE (01/05/2018 5:33 PM) Component Value Ref Range Glucose, POC 248 (H) 70 - 100 MG/DL Specimen Performing Laboratory [facility] [address] [place], [place] [id number] * POC GLUCOSE (01/05/2018 12:22 PM) Component Value Ref Range Glucose, POC 194 (H) 70 - 100 MG/DL Specimen Performing Laboratory [facility] [address] [place] [address] * POC GLUCOSE (01/05/2018 7:52 AM) Component Value Ref Range Glucose, POC 265 (H) 70 - 100 MG/DL Specimen Performing Laboratory [facility] [address] [place] [address] * BASIC METABOLIC PANEL (01/05/2018 3:04 AM) [...] questions. Specimen Performing Laboratory Blood MAIN LAB [address] [place] [address] * CBC AND DIFF (01/05/2018 3:04 AM) [...] - 0.20 K/UL Specimen Performing Laboratory Blood [facility] [address] [place] [address] * POC GLUCOSE (01/05/2018 2:44 AM) Component Value Ref Range Glucose, POC 279 (H) 70 - 100 MG/DL Specimen Performing Laboratory MAIN LAB [address] [place] [address] * POC GLUCOSE (01/04/2018 8:58 PM) Component Value Ref Range Glucose, POC 325 (H) 70 - 100 MG/DL Specimen Performing Laboratory [facility] [address] [place] [address] 244[address] * POC GLUCOSE (01/04/2018 3:22 PM) Component Value Ref Range Glucose, POC 278 (H) 70 - 100 MG/DL Specimen Performing Laboratory MAIN LAB [address] [place] [address] * ALBUMIN (01/04/2018 11:55 AM) Component Value Ref Range Albumin 2.2 (L) 3.5 - 5.0 G/DL Specimen Performing Laboratory Blood MAIN LAB [address] [place] [address] * PREALBUMIN (01/04/2018 11:55 AM) Component Value Ref Range Prealbumin 18.0 17 - 34 MG/DL Specimen Performing Laboratory Blood MAIN LAB [address] [place] [address] * POC GLUCOSE (01/04/2018 7:50 AM) Component Value Ref Range Glucose, POC 233 (H) 70 - 100 MG/DL Specimen Performing Laboratory MAIN LAB [address] [place] [address] * BASIC METABOLIC PANEL (01/04/2018 2:45 AM) [...] questions. Specimen Performing Laboratory Blood MAIN LAB [address] [place] [address] * CBC (01/04/2018 2:45 AM) Component Value [...] - 11 FL Specimen Performing Laboratory Blood [facility] [address] [place] [address] * POC GLUCOSE (01/04/2018 2:39 AM) Component Value Ref Range Glucose, POC 208 (H) 70 - 100 MG/DL Specimen Performing Laboratory [facility] [address] [place] [address] 618[address] * POC GLUCOSE (01/03/2018 8:21 PM) Component Value Ref Range Glucose, POC 255 (H) 70 - 100 MG/DL Specimen Performing Laboratory [facility] [address] [place] [address] 45683 * POC GLUCOSE (01/03/2018 4:53 PM) Component Value Ref Range Glucose, POC 221 (H) 70 - 100 MG/DL Specimen Performing Laboratory [facility] [address] [place] [address] * POC GLUCOSE (01/03/2018 2:44 PM) Component Value Ref Range Glucose, POC 168 (H) 70 - 100 MG/DL Specimen Performing Laboratory [facility] [address] [place] [address] * POC GLUCOSE (01/03/2018 7:51 AM) Component Value Ref Range Glucose, POC 119 (H) 70 - 100 MG/DL Specimen Performing Laboratory [facility] [address] [place], [place] [id number] * TRIGLYCERIDE (01/03/2018 5:10 AM) Component Value Ref Range Triglycerides 263 (H) <150 MG/DL Specimen Performing Laboratory Blood [facility] [address] [place], [place] [phone] * BASIC METABOLIC PANEL (01/03/2018 5:10 AM) [...] Pharmacist for questions. Specimen Performing Laboratory Blood [facility] [address] [place] [address] * CBC (01/03/2018 5:10 AM) Component Value [...] - 11 FL Specimen Performing Laboratory Blood [facility] [address] [place], [place] [id number] * MAGNESIUM (01/03/2018 5:10 AM) Component Value Ref Range Magnesium 1.8 1.6 - 2.6 mg/dL Specimen Performing Laboratory Blood [facility] [address] [place], [place] [id number] * PHOSPHORUS (01/03/2018 5:10 AM) Component Value Ref Range Phosphorus 2.2 2.0 - 4.0 MG/DL Specimen Performing Laboratory Blood [facility] [address] [place] [address] * POC GLUCOSE (01/03/2018 2:00 AM) Component Value Ref Range Glucose, POC 236 (H) 70 - 100 MG/DL Specimen Performing Laboratory [facility] [address] [place] [address] * POC GLUCOSE (01/02/2018 10:44 PM) Component Value Ref Range Glucose, POC 302 (H) 70 - 100 MG/DL Specimen Performing Laboratory [facility] [address] [place] [address] 348[address] * POC GLUCOSE (01/02/2018 8:28 PM) Component Value Ref Range Glucose, POC 317 (H) 70 - 100 MG/DL Specimen Performing Laboratory [facility] [address] [place] [address] * ECG-SCAN (01/02/2018 7:45 PM) Narrative Ordered by an unspecified provider. * POC GLUCOSE (01/02/2018 5:35 PM) Component Value Ref Range Glucose, POC 242 (H) 70 - 100 MG/DL Specimen Performing Laboratory MAIN LAB [address] [place] [address] * POC GLUCOSE (01/02/2018 12:30 PM) Component Value Ref Range Glucose, POC 315 (H) 70 - 100 MG/DL Specimen Performing Laboratory MAIN LAB [address] [place] [address] * THYROID STIMULATING HORMONE-TSH (01/02/2018 9:45 AM) Component Value Ref Range TSH 12.590 (H) 0.35 - 5.00 MCU/ML Specimen Performing Laboratory Blood MAIN LAB [address] [place] [address] * CREATININE-URINE RANDOM (01/02/2018 9:45 AM) Component Value Ref Range Creatinine, Random 20 MG/DL Specimen Performing Laboratory Urine MAIN LAB [address] [place] [address] * SODIUM-URINE RANDOM (01/02/2018 9:45 AM) Component Value Ref Range Sodium, Random 15 MMOL/L Specimen Performing Laboratory Urine MAIN LAB [address] [place] [address] * POC GLUCOSE (01/02/2018 7:49 AM) Component Value Ref Range Glucose, POC 280 (H) 70 - 100 MG/DL Specimen Performing Laboratory MAIN LAB [address] [place] [address] * BASIC METABOLIC PANEL (01/02/2018 3:25 AM) [...] questions. Specimen Performing Laboratory Blood MAIN LAB [address] [place] [address] * CBC (01/02/2018 3:25 AM) Component Value [...] - 11 FL Specimen Performing Laboratory Blood [facility] [address] [place], [place] [id number] * MAGNESIUM (01/02/2018 3:25 AM) Component Value Ref Range Magnesium 1.9 1.6 - 2.6 mg/dL Specimen Performing Laboratory Blood [facility] [address] [place], [place] [phone] * PHOSPHORUS (01/02/2018 3:25 AM) Component Value Ref Range Phosphorus 1.7 (L) 2.0 - 4.0 MG/DL Specimen Performing Laboratory Blood [facility] [address] [place], [place] [id number] * POC GLUCOSE (01/02/2018 2:11 AM) Component Value Ref Range Glucose, POC 288 (H) 70 - 100 MG/DL Specimen Performing Laboratory [facility] [address] [place], [place] [phone] * POC GLUCOSE (01/01/2018 9:15 PM) Component Value Ref Range Glucose, POC 289 (H) 70 - 100 MG/DL Specimen Performing Laboratory [facility] [address] [place], [place] [id number] * POC GLUCOSE (01/01/2018 5:48 PM) Component Value Ref Range Glucose, POC 284 (H) 70 - 100 MG/DL Specimen Performing Laboratory [facility] [address] [place] [address], [place] [address] * POC GLUCOSE (01/01/2018 4:12 PM) Component Value Ref Range Glucose, POC 354 (H) 70 - 100 MG/DL Specimen Performing Laboratory MAIN LAB [address] [place] [address] * POC GLUCOSE (01/01/2018 1:36 PM) Component Value Ref Range Glucose, POC 386 (H) 70 - 100 MG/DL Specimen Performing Laboratory MAIN LAB [address] [place] [address] * POC GLUCOSE (01/01/2018 8:54 AM) Component Value Ref Range Glucose, POC 363 (H) 70 - 100 MG/DL Specimen Performing Laboratory MAIN LAB [address] [place] [address] * BASIC METABOLIC PANEL (01/01/2018 5:15 AM) [...] Specimen Performing Laboratory Blood MAIN LAB [address] [place] [address] * CBC (01/01/2018 5:15 AM) Component Value [...] - 11 FL Specimen Performing Laboratory Blood [facility] [address] [place], [place] [id number] * MAGNESIUM (01/01/2018 5:15 AM) Component Value Ref Range Magnesium 2.0 1.6 - 2.6 mg/dL Specimen Performing Laboratory Blood MAIN LAB [address] [place] [address] * PHOSPHORUS (01/01/2018 5:15 AM) Component Value Ref Range Phosphorus 2.9 2.0 - 4.0 MG/DL Specimen Performing Laboratory Blood [facility] [address] [place] [address] * POC GLUCOSE (01/01/2018 2:17 AM) Component Value Ref Range Glucose, POC 330 (H) 70 - 100 MG/DL Specimen [place] [address] * TRANSFUSE RBC'S NON-BLEEDING PT (01/01/2018 2:11 AM) Specimen Performing Laboratory Blood * TRANSFUSE RBC'S NON-BLEEDING PT (01/01/2018 2:11 AM) Specimen Performing Laboratory Blood * POC GLUCOSE (12/31/2017 11:44 PM) Component Value Ref Range Glucose, POC 326 (H) 70 - 100 MG/DL Specimen Performing Laboratory [facility] [address] [place] [address] * POC GLUCOSE (12/31/2017 8:58 PM) Component Value Ref Range Glucose, POC 283 (H) 70 - 100 MG/DL Specimen Performing Laboratory [facility] [address] [place] [address] * TRANSFUSE RBC'S NON-BLEEDING PT (12/31/2017 6:22 PM) Specimen Performing Laboratory Blood * TRANSFUSE RBC'S NON-BLEEDING PT (12/31/2017 6:22 PM) Specimen Performing Laboratory Blood * POC GLUCOSE (12/31/2017 5:32 PM) Component Value Ref Range Glucose, POC 274 (H) 70 - 100 MG/DL Specimen Performing Laboratory [facility] [address] [place] [address] * TROPONIN-I (12/31/2017 4:57 PM) Component Value Ref Range Troponin-I 0.01 0.0 - 0.05 NG/ML Specimen Performing Laboratory Blood MAIN LAB [address] [place] [address] * POC GLUCOSE (12/31/2017 1:59 PM) Component Value Ref Range Glucose, POC 299 (H) 70 - 100 MG/DL Specimen Performing Laboratory MAIN LAB [address] [place] [address] * TRANSFUSE RBC'S BLEEDING PT OR EXCHANGE TRANSFUSION (12/31/2017 1:15 PM) Specimen Performing Laboratory Blood * TRANSFUSE RBC'S BLEEDING PT OR EXCHANGE TRANSFUSION (12/31/2017 1:15 PM) Specimen Performing Laboratory Blood * POC GLUCOSE (12/31/2017 11:56 AM) Component Value Ref Range Glucose, POC 268 (H) 70 - 100 MG/DL Specimen Performing Laboratory MAIN LAB [address] [place], [place] [phone] * BASIC METABOLIC PANEL (12/31/2017 10:10 AM) [...] Specimen Performing Laboratory Blood MAIN LAB [address] [place] [address] * CBC (12/31/2017 10:10 AM) Component Value [...] FL Specimen Performing Laboratory Blood MAIN LAB [address] [place] [address] * POC GLUCOSE (12/31/2017 8:49 AM) Component Value Ref Range Glucose, POC 351 (H) 70 - 100 MG/DL Specimen Performing Laboratory MAIN LAB [address] [place] [address] * POC GLUCOSE (12/31/2017 7:53 AM) Component Value Ref Range Glucose, POC 297 (H) 70 - 100 MG/DL Specimen Performing Laboratory MAIN LAB [address] [place] [address] * BASIC METABOLIC PANEL (12/31/2017 3:30 AM) [...] for questions. Specimen Performing Laboratory MAIN LAB [address] [place] [address] * MAGNESIUM (12/31/2017 3:30 AM) Component Value Ref Range Magnesium 2.0 1.6 - 2.6 mg/dL Specimen Performing Laboratory Blood MAIN LAB [address] [place] [address] 94[address] * PHOSPHORUS (12/31/2017 3:30 AM) Component Value Ref Range Phosphorus 4.1 (H) 2.0 - 4.0 MG/DL Specimen Performing Laboratory Blood [facility] [address] [place] [address] * POC GLUCOSE (12/31/2017 3:17 AM) Component Value Ref Range Glucose, POC 253 (H) 70 - 100 MG/DL Specimen Performing Laboratory [facility] [address] [place] [address] * POC GLUCOSE (12/31/2017 1:37 AM) Component Value Ref Range Glucose, POC 249 (H) 70 - 100 MG/DL Specimen Performing Laboratory [facility] [address] [place] [address] * POC GLUCOSE (12/30/2017 9:57 PM) Component Value Ref Range Glucose, POC 211 (H) 70 - 100 MG/DL Specimen Performing Laboratory [facility] [address] [place] [address] * POC GLUCOSE (12/30/2017 5:57 PM) Component Value Ref Range Glucose, POC 207 (H) 70 - 100 MG/DL Specimen Performing Laboratory [facility] [address] [place] [address] * POC GLUCOSE (12/30/2017 12:35 PM) Component Value Ref Range Glucose, POC 173 (H) 70 - 100 MG/DL Specimen Performing Laboratory [facility] [address] [place] [address] * SURGICAL PATHOLOGY (12/30/2017 11:56 AM) Component Value Ref Range PATHOLOGY REPORT [facility] [email or web address] Department of Pathology and Laboratory Medicine [address] [place] [address] Surgical Pathology Office:[phone]:[phone] SURGICAL PATHOLOGY REPORT NAME: BEATA KAISER SURG PATH #: [id number] MR #: [id number] SPECIMEN CLASS: [facility] BILLING #: [id number] ALT ID #:LOCATION: 43 DATE OF PROCEDURE: [...] the specimen is entirely submitted in cassettes [id number].([facility]) [facility]/12/30/2017 Specimen Performing Laboratory LAB RESULTS * POC GLUCOSE (12/30/2017 9:45 AM) Component Value Ref Range Glucose, POC 184 (H) 70 - 100 MG/DL Specimen Performing Laboratory MAIN LAB [address] [place] [address] * TYPE & CROSSMATCH (12/30/2017 8:50 AM) Component Value Ref Range Units Ordered 4 Crossmatch Expires 01/02/2018 Record Check FOUND ABO/RH(D) A POS Antibody Screen NEG Electronic Crossmatch YES Unit Number [id number] Blood Component Type RBC,ADSOL,LEUKO REDUCED Unit Division 0 Status OF Unit REL FROM ALLOC Transfusion Status OK TO TRANSFUSE Crossmatch Result COMPATIBLE,ELECTRONIC Unit Number [id number] Blood Component Type RBC,ADSOL,LEUKO REDUCED Unit Division 0 Status OF Unit REL FROM ALLOC Transfusion Status OK TO TRANSFUSE Crossmatch Result COMPATIBLE,ELECTRONIC Unit Number [id number] Blood Component Type RBC,ADSOL,LEUKO REDUCED Unit Division 0 Status OF Unit TRANSFUSED Transfusion Status OK TO TRANSFUSE Crossmatch Result COMPATIBLE,ELECTRONIC Unit Number [id number] Blood Component Type RBC,ADSOL,LEUKO REDUCED,2ND CONT. Unit Division 0 Status OF Unit TRANSFUSED Transfusion Status OK TO TRANSFUSE Crossmatch Result COMPATIBLE,ELECTRONIC Specimen Performing Laboratory Blood MAIN LAB [address] [place] [address] * CBC AND DIFF (12/30/2017 8:35 AM) [...] K/UL Specimen Performing Laboratory Blood MAIN LAB [address] [place] [address] * TRIGLYCERIDE (12/30/2017 4:58 AM) Component Value Ref Range Triglycerides 198 (H) <150 MG/DL Specimen Performing Laboratory Blood MAIN LAB [address] [place] [address] 28999 * MAGNESIUM (12/30/2017 4:58 AM) Component Value Ref Range Magnesium 2.0 1.6 - 2.6 mg/dL Specimen Performing Laboratory Blood MAIN LAB [address] [place] [address] * PHOSPHORUS (12/30/2017 4:58 AM) Component Value Ref Range Phosphorus 4.1 (H) 2.0 - 4.0 MG/DL Specimen Performing Laboratory Blood MAIN LAB [address] [place] [address] * COMPREHENSIVE METABOLIC PANEL (12/30/2017 4:58 AM) [...] Specimen Performing Laboratory Blood MAIN LAB [address] [place] [address] * POC GLUCOSE (12/30/2017 3:57 AM) Component Value Ref Range Glucose, POC 160 (H) 70 - 100 MG/DL Specimen Performing Laboratory MAIN LAB [address] [place] [address] * POC GLUCOSE (12/29/2017 9:08 PM) Component Value Ref Range Glucose, POC 267 (H) 70 - 100 MG/DL Specimen Performing Laboratory MAIN LAB [address] [place] [address] * POC GLUCOSE (12/29/2017 6:40 PM) Component Value Ref Range Glucose, POC 373 (H) 70 - 100 MG/DL Specimen Performing Laboratory MAIN LAB [address] [place] [address] * POC GLUCOSE (12/29/2017 5:41 PM) Component Value Ref Range Glucose, POC 335 (H) 70 - 100 MG/DL Specimen Performing Laboratory MAIN LAB [address] [place] [address] * POC GLUCOSE (12/29/2017 11:56 AM) Component Value Ref Range Glucose, POC 281 (H) 70 - 100 MG/DL Specimen Performing Laboratory MAIN LAB [address] [place] [address]60 * POC GLUCOSE (12/29/2017 8:18 AM) Component Value Ref Range Glucose, POC 233 (H) 70 - 100 MG/DL Specimen Performing Laboratory MAIN LAB [address] [place] [address] * TYPE & SCREEN (NOT CROSSMATCH ELIGIBLE) (12/29/2017 4:51 AM) Component Value Ref Range ABO/RH(D) A POS Antibody Screen NEG Blood Component Type RED CELL GROUP Specimen Performing Laboratory Blood, venous - Blood [facility] [address] [place] [address] * BASIC METABOLIC PANEL (12/29/2017 4:51 AM) [...] questions. Specimen Performing Laboratory Blood MAIN LAB [address] [place] [address] * CBC AND DIFF (12/29/2017 4:51 AM) [...] 7.0 K/UL Manual Specimen Performing Laboratory Blood [facility] [address] [place] [address] * POC GLUCOSE (12/29/2017 3:43 AM) Component Value Ref Range Glucose, POC 259 (H) 70 - 100 MG/DL Specimen Performing Laboratory [facility] [address] [place] [address] * POC GLUCOSE (12/28/2017 8:23 PM) Component Value Ref Range Glucose, POC 280 (H) 70 - 100 MG/DL Specimen Performing Laboratory [facility] [address] [place] [address] * POC GLUCOSE (12/28/2017 5:44 PM) Component Value Ref Range Glucose, POC 363 (H) 70 - 100 MG/DL Specimen Performing Laboratory [facility] [address] [place] [address] * OSMOLALITY-URINE RANDOM (12/28/2017 5:18 PM) Component Value Ref Range Osmolality-Urine 366 50 - 1,400 MOS/KG Specimen Performing Laboratory Urine [facility] [address] [place] [address]056 * SODIUM-URINE RANDOM (12/28/2017 5:18 PM) Component Value Ref Range Sodium, Random 28 MMOL/L Specimen Performing Laboratory Urine [facility] [address] [place] [address] * CULTURE-URINE W/SENSITIVITY (12/28/2017 5:18 PM) Component Value Ref Range Battery Name URINE CULTURE Specimen Description URINE,INDWELLING CATH Special Requests NONE Culture NO GROWTH Report Status FINAL 12/29/2017 Specimen Performing Laboratory Urine - Melchor Catheter [facility] [address] [place] [address] * URINALYSIS, MICROSCOPIC (12/28/2017 5:18 PM) Component Value Ref Range WBCs,UA 10-20 0 - 2 /HPF RBCs,UA 10-20 0 - 3 /HPF MucousUA TRACE Bacteria,UA FEW (A) NEG-NEG Squamous Epithelial Cells 0-2 0 - 5 Budding Yeast FEW Specimen Performing Laboratory Urine [facility] [address] [place] [address] * URINALYSIS DIPSTICK (12/28/2017 5:18 PM) Component Value Ref Range Color,UA YELLOW Turbidity,UA CLEAR CLEAR-CLEAR Specific [place]-Urine 1.015 1.003 - 1.035 pH,UA 5.0 5.0 - 8.0 Protein,UA NEG NEG-NEG Glucose,UA 3+ (A) NEG-NEG Ketones,UA NEG NEG-NEG Bilirubin,UA NEG NEG-NEG Blood,UA 1+ (A) NEG-NEG Urobilinogen,UA NORMAL NORM-NORMAL Nitrite,UA NEG NEG-NEG Leukocytes,UA 2+ (A) NEG-NEG Urine Ascorbic Acid, UA NEG NEG-NEG Specimen Performing Laboratory Urine [facility] [address] [place], [place] [id number] * POC GLUCOSE (12/28/2017 1:50 PM) Component Value Ref Range Glucose, POC 281 (H) 70 - 100 MG/DL Specimen Performing Laboratory [facility] [address] [place] [address] * POC GLUCOSE (12/28/2017 12:01 PM) Component Value Ref Range Glucose, POC 343 (H) 70 - 100 MG/DL Specimen Performing Laboratory [facility] [address] [place], [place] [id number] * PATHOLOGY INTEROPERATIVE REPORT SCAN (12/28/2017 9:36 AM) Narrative Ordered by an unspecified provider. * PATHOLOGY INTEROPERATIVE REPORT SCAN (12/28/2017 9:36 AM) Narrative Ordered by an unspecified provider. * POC GLUCOSE (12/28/2017 7:54 AM) Component Value Ref Range Glucose, POC 187 (H) 70 - 100 MG/DL Specimen Performing Laboratory [facility] [address] [place] [address] * ABDOMEN AP ONLY (12/28/2017 5:27 AM) [...] <7%. Specimen Performing Laboratory MAIN LAB [address] [place] [address] * OSMOLALITY (12/28/2017 4:00 AM) Component Value Ref Range Osmolality 283 280 - 307 MOSMOL/KG Specimen Performing Laboratory MAIN LAB [address] [place] [address] * BASIC METABOLIC PANEL (12/28/2017 4:00 AM) [...] Specimen Performing Laboratory Blood MAIN LAB [address] [place] [address] * CBC AND DIFF (12/28/2017 4:00 AM) [...] K/UL Specimen Performing Laboratory Blood MAIN LAB [address] [place] [address] * POC GLUCOSE (12/28/2017 3:27 AM) Component Value Ref Range Glucose, POC 168 (H) 70 - 100 MG/DL Specimen Performing Laboratory MAIN LAB [address] [place] [address] 53679 * POC GLUCOSE (12/28/2017 3:14 AM) Component Value Ref Range Glucose, POC 167 (H) 70 - 100 MG/DL Specimen Performing Laboratory MAIN LAB [address] [place] [address] 6[address] * POC GLUCOSE (12/27/2017 9:28 PM) Component Value Ref Range Glucose, POC 234 (H) 70 - 100 MG/DL Specimen Performing Laboratory MAIN LAB [address] [place] [address] 28199 * ABDOMEN AP ONLY (12/27/2017 7:52 PM) [...] the mid abdomen is included in the [id number]. Surgical defect in the left abdominal wall [...] the mid abdomen is included in the [id number]. Surgical defect in the left abdominal wall [...] 100 MG/DL Specimen Performing Laboratory MAIN LAB [address] [place] [address] * POC GLUCOSE (12/27/2017 11:52 AM) Component Value Ref Range Glucose, POC 143 (H) 70 - 100 MG/DL Specimen Performing Laboratory MAIN LAB [address] [place] [address] * POC GLUCOSE (12/27/2017 7:39 AM) Component Value Ref Range Glucose, POC 193 (H) 70 - 100 MG/DL Specimen Performing Laboratory MAIN LAB [address] [place] [address] * VANCOMYCIN TROUGH (12/27/2017 5:33 AM) Component Value Ref Range Vancomycin Trough 23.2 (H) 10.0 - 20.0 MCG/ML Specimen Performing Laboratory Blood, venous - Blood MAIN LAB [address] [place] [address] * BASIC METABOLIC PANEL (12/27/2017 4:31 AM) [...] questions. Specimen Performing Laboratory Blood MAIN LAB [address] [place] [address] * CBC AND DIFF (12/27/2017 4:31 AM) [...] K/UL Specimen Performing Laboratory Blood MAIN LAB [address] [place] [address] 21929 * POC GLUCOSE (12/27/2017 2:35 AM) Component Value Ref Range Glucose, POC 176 (H) 70 - 100 MG/DL Specimen Performing Laboratory MAIN LAB [address] [place] [address] * POC GLUCOSE (12/26/2017 9:25 PM) Component Value Ref Range Glucose, POC 304 (H) 70 - 100 MG/DL Specimen Performing Laboratory MAIN LAB [address] [place] [address] * POC GLUCOSE (12/26/2017 5:42 PM) Component Value Ref Range Glucose, POC 215 (H) 70 - 100 MG/DL Specimen Performing Laboratory MAIN LAB [address] [place] [address] 55467 * POC GLUCOSE (12/26/2017 1:20 PM) Component Value Ref Range Glucose, POC 312 (H) 70 - 100 MG/DL Specimen Performing Laboratory MAIN LAB [address] [place] [address] 98562 * POC GLUCOSE (12/26/2017 8:31 AM) Component Value Ref Range Glucose, POC 219 (H) 70 - 100 MG/DL Specimen Performing Laboratory [facility] [address] [place] [address] 13264 * PHOSPHORUS (12/26/2017 4:01 AM) Component Value Ref Range Phosphorus 2.1 2.0 - 4.0 MG/DL Specimen Performing Laboratory [facility] [address] [place] [address] 39[address] * MAGNESIUM (12/26/2017 4:01 AM) Component Value Ref Range Magnesium 2.0 1.6 - 2.6 mg/dL Specimen Performing Laboratory [facility] [address] [place] [address] 20394 * BASIC METABOLIC PANEL (12/26/2017 4:01 AM) [...] Pharmacist for questions. Specimen Performing Laboratory Blood [facility] [address] [place] [address] 19001 * CBC AND DIFF (12/26/2017 4:01 AM) [...] - 0.20 K/UL Specimen Performing Laboratory Blood [facility] [address] [place], [place] [id number] * POC GLUCOSE (12/26/2017 1:28 AM) Component Value Ref Range Glucose, POC 217 (H) 70 - 100 MG/DL Specimen Performing Laboratory [place] [id number] * POC GLUCOSE (12/25/2017 8:35 PM) Component Value Ref Range Glucose, POC 367 (H) 70 - 100 MG/DL Specimen Performing Laboratory [facility] [address] [place] [address] 201[address] * POC GLUCOSE (12/25/2017 5:19 PM) Component Value Ref Range Glucose, POC 292 (H) 70 - 100 MG/DL Specimen Performing Laboratory [facility] [address] [place] [address] 88726 * POC GLUCOSE (12/25/2017 12:02 PM) Component Value Ref Range Glucose, POC 306 (H) 70 - 100 MG/DL Specimen Performing Laboratory [facility] [address] [place] [address] 6[address] * POC GLUCOSE (12/25/2017 9:01 AM) Component Value Ref Range Glucose, POC 261 (H) 70 - 100 MG/DL Specimen Performing Laboratory MAIN LAB [address] [place] [address] * CT PELVIS WO CONTRAST (12/25/2017 8:47 [...] MCG/ML Specimen Performing Laboratory MAIN LAB [address] [place] [address] * BASIC METABOLIC PANEL (12/25/2017 4:42 AM) [...] questions. Specimen Performing Laboratory Blood MAIN LAB [address] [place] [address] 6[address] * CBC AND DIFF (12/25/2017 4:42 AM) [...] K/UL Specimen Performing Laboratory Blood MAIN LAB [address] [place] [address] * POC GLUCOSE (12/25/2017 3:24 AM) Component Value Ref Range Glucose, POC 200 (H) 70 - 100 MG/DL Specimen Performing Laboratory MAIN LAB [address] [place] [address]757 * POC GLUCOSE (12/24/2017 8:18 PM) Component Value Ref Range Glucose, POC 263 (H) 70 - 100 MG/DL Specimen Performing Laboratory MAIN LAB [address] [place] [address] * DELIVER & TRANSFUSE RED BLOOD CELLS (INTRAOP ONLY) (12/24/2017 6:16 PM) Specimen Performing Laboratory Blood * POC GLUCOSE (12/24/2017 5:47 PM) Component Value Ref Range Glucose, POC 323 (H) 70 - 100 MG/DL Specimen Performing Laboratory [facility] [address] [place] [address] * POC GLUCOSE (12/24/2017 2:02 PM) Component Value Ref Range Glucose, POC 235 (H) 70 - 100 MG/DL Specimen Performing Laboratory [facility] [address] [place] [address] * CULTURE-BLOOD W/SENSITIVITY (12/24/2017 1:12 PM) Component Value Ref Range Battery Name BLOOD CULTURE Specimen Description BLOOD RIGHT ANTECUBITAL Special Requests NONE Culture NO GROWTH 5 DAYS Report Status FINAL 12/30/2017 Specimen Performing Laboratory Blood MAIN LAB [address] [place] [address] * CHEST SINGLE VIEW (12/24/2017 10:34 AM) [...] Screen NEG Electronic Crossmatch YES Unit Number [id number] Blood Component Type RBC,ADSOL,LEUKO REDUCED Unit Division 0 Status OF Unit TRANSFUSED Transfusion Status OK TO TRANSFUSE Crossmatch Result COMPATIBLE,ELECTRONIC Specimen Performing Laboratory Blood MAIN LAB [address] [place] [address] * POC GLUCOSE (12/24/2017 9:15 AM) Component Value Ref Range Glucose, POC 182 (H) 70 - 100 MG/DL Specimen Performing Laboratory [facility] [address] [place] [address] 30453 * CBC (12/24/2017 7:16 AM) Component Value [...] 11 FL Specimen Performing Laboratory MAIN LAB [address] [place] [address] 69338 * CBC (12/24/2017 4:34 AM) Component Value [...] 11 FL Specimen Performing Laboratory MAIN LAB [address] [place] [address] * BASIC METABOLIC PANEL (12/24/2017 4:34 AM) [...] questions. Specimen Performing Laboratory Blood MAIN LAB [address] [place] [address] 17801 * POC GLUCOSE (12/23/2017 9:18 PM) Component Value Ref Range Glucose, POC 133 (H) 70 - 100 MG/DL Specimen Performing Laboratory MAIN LAB [address] [place] [address] 95358 * POC GLUCOSE (12/23/2017 6:56 PM) Component Value Ref Range Glucose, POC 169 (H) 70 - 100 MG/DL Specimen Performing Laboratory MAIN LAB [address] [place] [address] 57986 * OSMOLALITY-URINE RANDOM (12/23/2017 6:14 PM) Component Value Ref Range Osmolality-Urine 298 50 - 1,400 MOS/KG Specimen Performing Laboratory Urine [facility] [address] [place] [address] 28329 * SODIUM-URINE RANDOM (12/23/2017 6:14 PM) Component Value Ref Range Sodium, Random <10 MMOL/L Specimen Performing Laboratory Urine MAIN LAB [address] [place] [address] 35663 * LACTIC ACID (BG - RAPID LACTATE) (12/23/2017 1:42 PM) Component Value Ref Range Lactic Acid,BG 1.9 0.5 - 2.0 MMOL/L Specimen Performing Laboratory Blood MAIN LAB [address] [place] [address] 55565 * CULTURE-BLOOD W/SENSITIVITY (12/23/2017 1:42 PM) Component Value Ref Range Battery Name BLOOD CULTURE Specimen Description BLOOD LEFT ANTECUBITAL Special Requests NONE Culture NO GROWTH 5 DAYS Report Status FINAL 12/29/2017 Specimen Performing Laboratory Blood MAIN LAB [address] [place] [address] 55891 * CULTURE-BLOOD W/SENSITIVITY (12/23/2017 1:05 PM) Component [...] recognized Specimen Performing Laboratory Blood MAIN LAB [address] [place] [address] 59860 Organism Antibiotic Method Susceptibility Streptococcus Levofloxacin GRAF [...] 100 MG/DL Specimen Performing Laboratory MAIN LAB [address] [place] [address] 45108 * C DIFFICILE BY PCR (12/23/2017 10:14 AM) Component Value Ref Range Battery Name C DIFFICILE PCR Specimen Description FECES Special Requests NONE C. Difficile Toxin B PCR Repeat testing not indicated on specimen negative by PCR within 7 days notified MAURO/Gaye 12.23.17/ Report Status FINAL 12/23/2017 Specimen Performing Laboratory Feces MAIN LAB [address] [place], [place] [id number] * POC GLUCOSE (12/23/2017 9:35 AM) Component Value Ref Range Glucose, POC 165 (H) 70 - 100 MG/DL Specimen Performing Laboratory MAIN LAB [address] [place] [id number] * CBC (12/23/2017 7:29 AM) Component Value [...] FL Specimen Performing Laboratory Blood MAIN LAB [address] [place], [place] [id number] * BASIC METABOLIC PANEL (12/23/2017 7:29 AM) [...] Specimen Performing Laboratory Blood MAIN LAB [address] [place] [address] * POC GLUCOSE (12/22/2017 9:17 PM) Component Value Ref Range Glucose, POC 303 (H) 70 - 100 MG/DL Specimen Performing Laboratory MAIN LAB [address] [place] [address] * POC GLUCOSE (12/22/2017 5:50 PM) Component Value Ref Range Glucose, POC 376 (H) 70 - 100 MG/DL Specimen Performing Laboratory MAIN LAB [address] [place] [address] 84375 * POC GLUCOSE (12/22/2017 12:39 PM) Component Value Ref Range Glucose, POC 227 (H) 70 - 100 MG/DL Specimen Performing Laboratory MAIN LAB [address] [place] [address] 6[address] * PREALBUMIN (12/22/2017 11:22 AM) Component Value Ref Range Prealbumin 4.0 (L) 17 - 34 MG/DL Specimen Performing Laboratory Blood [facility] [address] [place] [address] 85590 * POC GLUCOSE (12/22/2017 9:41 AM) Component Value Ref Range Glucose, POC 113 (H) 70 - 100 MG/DL Specimen Performing Laboratory [facility] [address] [place] [address] 98722 * ECG-SCAN (12/22/2017 8:10 AM) Narrative Ordered [...] - 8.0 G/DL Specimen Performing Laboratory Blood [facility] [address] [place] [address] 02460 * ALBUMIN (12/22/2017 4:13 AM) Component Value Ref Range Albumin 2.0 (L) 3.5 - 5.0 G/DL Specimen Performing Laboratory MAIN LAB [address] [place] [address] 28287 * CBC (12/22/2017 4:13 AM) Component Value [...] Specimen Performing Laboratory Blood MAIN LAB [address] [place] [address] * BASIC METABOLIC PANEL (12/22/2017 4:13 AM) [...] Pharmacist for questions. Specimen Performing Laboratory Blood [facility] [address] [place] [address] 64833 * POC GLUCOSE (12/21/2017 8:38 PM) Component Value Ref Range Glucose, POC 208 (H) 70 - 100 MG/DL Specimen Performing Laboratory MAIN LAB [address] [place] [address] 20372 * POC GLUCOSE (12/21/2017 5:10 PM) Component Value Ref Range Glucose, POC 219 (H) 70 - 100 MG/DL Specimen Performing Laboratory MAIN LAB [address] [place] [address] 75819 * POC GLUCOSE (12/21/2017 2:59 PM) Component Value Ref Range Glucose, POC 213 (H) 70 - 100 MG/DL Specimen Performing Laboratory MAIN LAB [address] [place] [address] 07587 * CHEST SINGLE VIEW (12/21/2017 12:34 PM) [...] Specimen Performing Laboratory Blood [facility] [address] [place] [address] 85821 * BASIC METABOLIC PANEL (12/21/2017 11:33 AM) [...] questions. Specimen Performing Laboratory Blood MAIN LAB [address] [place] [address] 83444 * CULTURE-URINE W/SENSITIVITY (12/21/2017 9:00 AM) Component Value Ref Range Battery Name URINE CULTURE Specimen Description URINE Special Requests NONE Culture >100,000 organisms/ml ARACELY SPECIES, NOT ALBICANS Report Status FINAL 12/22/2017 Specimen Performing Laboratory Urine MAIN LAB [address] [place] [address] 05283 * URINALYSIS MICROSCOPIC REFLEX TO CULTURE (12/21/2017 [...] PACKED Specimen Performing Laboratory Urine MAIN LAB [address] [place] [address] 36031 * URINALYSIS DIPSTICK REFLEX TO CULTURE (12/21/2017 9:00 AM) Component Value Ref Range Color,UA YELLOW Turbidity,UA CLEAR CLEAR-CLEAR Specific [place]-Urine 1.003 1.003 - 1.035 pH,UA 7.0 5.0 - 8.0 Protein,UA NEG NEG-NEG Glucose,UA NEG NEG-NEG Ketones,UA NEG NEG-NEG Bilirubin,UA NEG NEG-NEG Blood,UA 1+ (A) NEG-NEG Urobilinogen,UA NORMAL NORM-NORMAL Nitrite,UA NEG NEG-NEG Leukocytes,UA 1+ (A) NEG-NEG Urine Ascorbic Acid, UA NEG NEG-NEG Specimen Performing Laboratory Urine MAIN LAB [address] [place] [address] 25372 * UA REFLEX CULTURE LABEL (12/21/2017 9:00 AM) Component Value Ref Range UA Reflex Culture LAB LABEL Specimen Performing Laboratory Urine MAIN LAB [address] [place] [address] 45851 * OSMOLALITY-URINE RANDOM (12/21/2017 9:00 AM) Component Value Ref Range Osmolality-Urine 94 50 - 1,400 MOS/KG Specimen Performing Laboratory Urine [facility] [address] [place] [address] 88566 * SODIUM-URINE RANDOM (12/21/2017 9:00 AM) Component Value Ref Range Sodium, Random <10 MMOL/L Specimen Performing Laboratory Urine [facility] [address] [place] [address] 23038 * POC GLUCOSE (12/21/2017 8:50 AM) Component Value Ref Range Glucose, POC 136 (H) 70 - 100 MG/DL Specimen Performing Laboratory MAIN LAB [address] [place] [address] 34764 * URIC ACID (12/21/2017 4:38 AM) Component Value Ref Range Uric Acid 3.3 2.0 - 7.0 MG/DL Specimen Performing Laboratory [facility] [address] [place] [address] * THYROID STIMULATING HORMONE-TSH (12/21/2017 4:38 AM) Component Value Ref Range TSH 2.150 0.35 - 5.00 MCU/ML Specimen Performing Laboratory [facility] [address] [place], [place] [id number] * OSMOLALITY (12/21/2017 4:38 AM) Component Value Ref Range Osmolality 258 (L) 280 - 307 MOSMOL/KG Specimen Performing Laboratory [facility] [address] [place] [address] * CORTISOL,RANDOM (12/21/2017 4:38 AM) Component Value Ref Range Cortisol, Random 15.5 5.0 - 20.0 MCG/DL Specimen Performing Laboratory [facility] [address] [place] [address] * CBC (12/21/2017 4:38 AM) Component Value [...] - 11 FL Specimen Performing Laboratory Blood [facility] [address] [place] [address] 68797 * BASIC METABOLIC PANEL (12/21/2017 4:38 AM) [...] questions. Specimen Performing Laboratory Blood MAIN LAB [address] [place] [address] 65976 * POC GLUCOSE (12/21/2017 2:54 AM) Component Value Ref Range Glucose, POC 157 (H) 70 - 100 MG/DL Specimen Performing Laboratory [facility] [address] [place] [address] 40420 * POC GLUCOSE (12/20/2017 9:27 PM) Component Value Ref Range Glucose, POC 263 (H) 70 - 100 MG/DL Specimen Performing Laboratory MAIN LAB [address] [place] [address] 87212 * POC GLUCOSE (12/20/2017 6:47 PM) Component Value Ref Range Glucose, POC 245 (H) 70 - 100 MG/DL Specimen Performing Laboratory [facility] [address] [place] [address] 47209 * C DIFFICILE BY PCR (12/20/2017 1:40 PM) Component Value Ref Range Battery Name C DIFFICILE PCR Specimen Description FECES Special Requests NONE C. Difficile Toxin B PCR NEGATIVE-wait 7 days to repeat test Report Status FINAL 12/20/2017 Specimen Performing Laboratory Feces MAIN LAB [address] [place] [address] 78448 * POC GLUCOSE (12/20/2017 11:30 AM) Component Value Ref Range Glucose, POC 208 (H) 70 - 100 MG/DL Specimen Performing Laboratory MAIN LAB [address] [place] [address] 29091 * POC GLUCOSE (12/20/2017 8:42 AM) Component Value Ref Range Glucose, POC 133 (H) 70 - 100 MG/DL Specimen Performing Laboratory MAIN LAB [address] [place] [address] * POC GLUCOSE (12/20/2017 3:21 AM) Component Value Ref Range Glucose, POC 151 (H) 70 - 100 MG/DL Specimen Performing Laboratory MAIN LAB [address] [place] [address] 73913 * BASIC METABOLIC PANEL (12/20/2017 3:10 AM) [...] questions. Specimen Performing Laboratory Blood MAIN LAB [address] [place] [address] 26011 * CBC (12/20/2017 3:10 AM) Component Value [...] - 11 FL Specimen Performing Laboratory Blood [facility] [address] [place] [address] 68522 * POC GLUCOSE (12/19/2017 9:46 PM) Component Value Ref Range Glucose, POC 151 (H) 70 - 100 MG/DL Specimen Performing Laboratory [facility] [address] [place] [address] 68661 * POC GLUCOSE (12/19/2017 5:06 PM) Component Value Ref Range Glucose, POC 207 (H) 70 - 100 MG/DL Specimen Performing Laboratory [facility] [address] [place] [address] 53142 * POC GLUCOSE (12/19/2017 11:56 AM) Component Value Ref Range Glucose, POC 153 (H) 70 - 100 MG/DL Specimen Performing Laboratory [facility] [address] [place] [address] 98615 * POC GLUCOSE (12/19/2017 9:07 AM) Component Value Ref Range Glucose, POC 127 (H) 70 - 100 MG/DL Specimen Performing Laboratory [facility] [address] [place], [place] [id number] * CBC (12/19/2017 3:05 AM) Component Value [...] - 11 FL Specimen Performing Laboratory Blood [facility] [address] [place] [address] 54838 * BASIC METABOLIC PANEL (12/19/2017 3:05 AM) [...] Pharmacist for questions. Specimen Performing Laboratory Blood [facility] [address] [place] [address] 94151 * IONIZED CALCIUM (12/19/2017 3:05 AM) Component Value Ref Range Ionized Calcium 1.07 1.0 - 1.3 MMOL/L Specimen Performing Laboratory Blood [facility] [address] [place] [address] 72760 * PHOSPHORUS (12/19/2017 3:05 AM) Component Value Ref Range Phosphorus 3.0 2.0 - 4.0 MG/DL Specimen Performing Laboratory Blood [facility] [address] [place], [place] [id number] * MAGNESIUM (12/19/2017 3:05 AM) Component Value Ref Range Magnesium 1.9 1.6 - 2.6 mg/dL Specimen Performing Laboratory Blood [facility] [address] [place] [address] 44528 * POC GLUCOSE (12/18/2017 9:00 PM) Component Value Ref Range Glucose, POC 97 70 - 100 MG/DL Specimen Performing Laboratory [facility] [address] [place] [address] 73644 * POC GLUCOSE (12/18/2017 4:38 PM) Component Value Ref Range Glucose, POC 173 (H) 70 - 100 MG/DL Specimen Performing Laboratory [facility] [address] [place] [address] 06996 * POC GLUCOSE (12/18/2017 12:00 PM) Component Value Ref Range Glucose, POC 129 (H) 70 - 100 MG/DL Specimen Performing Laboratory [facility] [address] [place] [address] 10536 * POC GLUCOSE (12/18/2017 8:45 AM) Component Value Ref Range Glucose, POC 107 (H) 70 - 100 MG/DL Specimen Performing Laboratory [facility] [address] [place] [address] 99520 * POC GLUCOSE (12/18/2017 3:08 AM) Component Value Ref Range Glucose, POC 132 (H) 70 - 100 MG/DL Specimen Performing Laboratory MAIN LAB [address] [place] [address] 37222 * CBC (12/18/2017 3:07 AM) Component Value [...] FL Specimen Performing Laboratory Blood MAIN LAB [address] [place] [address] 64260 * BASIC METABOLIC PANEL (12/18/2017 3:07 AM) [...] Specimen Performing Laboratory Blood MAIN LAB [address] [place] [address] * IONIZED CALCIUM (12/18/2017 3:07 AM) Component Value Ref Range Ionized Calcium 1.12 1.0 - 1.3 MMOL/L Specimen Performing Laboratory Blood MAIN LAB [address] [place] [address] * PHOSPHORUS (12/18/2017 3:07 AM) Component Value Ref Range Phosphorus 2.5 2.0 - 4.0 MG/DL Specimen Performing Laboratory Blood [facility] [address] [place] [address] 09078 * MAGNESIUM (12/18/2017 3:07 AM) Component Value Ref Range Magnesium 2.2 1.6 - 2.6 mg/dL Specimen Performing Laboratory Blood [facility] [address] [place] [address] 63570 * POC GLUCOSE (12/17/2017 8:27 PM) Component Value Ref Range Glucose, POC 154 (H) 70 - 100 MG/DL Specimen Performing Laboratory [facility] [address] [place] [address] 08133 * POC GLUCOSE (12/17/2017 5:31 PM) Component Value Ref Range Glucose, POC 197 (H) 70 - 100 MG/DL Specimen Performing Laboratory [facility] [address] [place] [address] 25532 * CBC (12/17/2017 5:31 PM) Component Value [...] - 11 FL Specimen Performing Laboratory Blood [facility] [address] [place] [address] 12574 * POC GLUCOSE (12/17/2017 12:05 PM) Component Value Ref Range Glucose, POC 136 (H) 70 - 100 MG/DL Specimen Performing Laboratory [facility] [address] [place] [address] 73394 * POC GLUCOSE (12/17/2017 8:17 AM) Component Value Ref Range Glucose, POC 123 (H) 70 - 100 MG/DL Specimen Performing Laboratory [facility] [address] [place] [address] 66133 * ABDOMEN AP ONLY (12/17/2017 7:10 AM) [...] MG/DL Specimen Performing Laboratory [facility] [address] [place] [address] 01373 * CBC (12/17/2017 3:04 AM) Component Value [...] FL Specimen Performing Laboratory Blood MAIN LAB [address] [place], [place] [id number] * BASIC METABOLIC PANEL (12/17/2017 3:04 AM) [...] questions. Specimen Performing Laboratory Blood MAIN [facility] [address] [place] [address] 44787 * IONIZED CALCIUM (12/17/2017 3:04 AM) Component Value Ref Range Ionized Calcium 1.13 1.0 - 1.3 MMOL/L Specimen Performing Laboratory Blood MAIN LAB [address] [place] [address] 80215 * PHOSPHORUS (12/17/2017 3:04 AM) Component Value Ref Range Phosphorus 2.0 2.0 - 4.0 MG/DL Specimen Performing Laboratory Blood MAIN [facility] [address] [place] [address] 07135 * MAGNESIUM (12/17/2017 3:04 AM) Component Value Ref Range Magnesium 2.1 1.6 - 2.6 mg/dL Specimen Performing Laboratory Blood MAIN [facility] [address] [place] [address] 92943 * CBC (12/16/2017 10:00 PM) Component Value [...] FL Specimen Performing Laboratory Blood MAIN LAB [address] [place], [place] [id number] * POC GLUCOSE (12/16/2017 8:26 PM) Component Value Ref Range Glucose, POC 131 (H) 70 - 100 MG/DL Specimen Performing Laboratory MAIN LAB [address] [place] [id number] * POC GLUCOSE (12/16/2017 5:01 PM) Component Value Ref Range Glucose, POC 165 (H) 70 - 100 MG/DL Specimen Performing Laboratory MAIN LAB [address] [place] [address] * BASIC METABOLIC PANEL (12/16/2017 2:20 PM) [...] questions. Specimen Performing Laboratory Blood MAIN LAB [address] [place] [address] * CBC (12/16/2017 2:20 PM) Component Value [...] [place] Specimen Performing Laboratory Blood MAIN LAB [address] [place], [place] [id number] * POC GLUCOSE (12/16/2017 12:09 PM) Component Value Ref Range Glucose, POC 181 (H) 70 - 100 MG/DL Specimen Performing Laboratory [facility] [address] [place] [address] * POC GLUCOSE (12/16/2017 9:39 AM) Component Value Ref Range Glucose, POC 171 (H) 70 - 100 MG/DL Specimen Performing Laboratory [facility] [address] [place] [address] * BLOOD GASES, ARTERIAL (12/16/2017 3:27 AM) Component Value Ref Range pH-Arterial 7.33 (L) 7.35 - 7.45 pCO2-Arterial 41 35 - 45 MMHG pO2-Arterial 84 80 - 100 MMHG Base Deficit-Arterial 4.2 MMOL/L O2 Sat-Arterial 97.0 95 - 99 % Ozqzenskwms-UOX-Rdk 20.9 (L) 21 - 28 MMOL/L Specimen Performing Laboratory Blood, arterial - Blood [facility] [address] [place] [address] * POC GLUCOSE (12/16/2017 3:06 AM) Component Value Ref Range Glucose, POC 136 (H) 70 - 100 MG/DL Specimen Performing Laboratory MAIN LAB [address] [place], [place] [id number] * CBC (12/16/2017 3:05 AM) Component Value [...] [place] Specimen Performing Laboratory Blood MAIN LAB [address] [place] [address] * BASIC METABOLIC PANEL (12/16/2017 3:05 AM) [...] questions. Specimen Performing Laboratory Blood MAIN LAB [address] [place] [address] * IONIZED CALCIUM (12/16/2017 3:05 AM) Component Value Ref Range Ionized Calcium 1.16 1.0 - 1.3 MMOL/L Specimen Performing Laboratory Blood MAIN LAB [address] [place] [address] * PHOSPHORUS (12/16/2017 3:05 AM) Component Value Ref Range Phosphorus 3.6 2.0 - 4.0 MG/DL Specimen Performing Laboratory Blood MAIN LAB [address] [place] [address] 8[address]84 * MAGNESIUM (12/16/2017 3:05 AM) Component Value Ref Range Magnesium 1.8 1.6 - 2.6 mg/dL Specimen Performing Laboratory Blood MAIN LAB [address] [place] [address] 8[address] * PHOSPHORUS (12/15/2017 10:00 PM) Component Value Ref Range Phosphorus 4.1 (H) 2.0 - 4.0 MG/DL Specimen Performing Laboratory Blood MAIN LAB [address] [place], [place] [id number] * MAGNESIUM (12/15/2017 10:00 PM) Component Value Ref Range Magnesium 2.0 1.6 - 2.6 mg/dL Specimen Performing Laboratory Blood [facility] MAIN [facility] [address] [id number] * TEG WITH KAOLIN (12/15/2017 10:00 PM) [...] Performing Laboratory Blood [facility] MAIN [facility] [address] [place] [address] * CBC (12/15/2017 10:00 PM) Component Value [...] [place] Specimen Performing Laboratory Blood MAIN LAB [address] [place] [address] * IONIZED CALCIUM (12/15/2017 10:00 PM) Component Value Ref Range Ionized Calcium 1.23 1.0 - 1.3 MMOL/L Specimen Performing Laboratory Blood MAIN LAB [address] [place] [address] * BLOOD GASES, ARTERIAL (12/15/2017 10:00 PM) Component Value Ref Range pH-Arterial 7.31 (L) 7.35 - 7.45 pCO2-Arterial 38 35 - 45 MMHG pO2-Arterial 95 80 - 100 MMHG Base Deficit-Arterial 6.4 MMOL/L O2 Sat-Arterial 97.6 95 - 99 % Vtsxzletvsv-PEY-Vwh 19.2 (L) 21 - 28 MMOL/L Specimen Performing Laboratory Blood, arterial - Blood [facility] [address] [place] [address] * POC GLUCOSE (12/15/2017 8:35 PM) Component Value Ref Range Glucose, POC 272 (H) 70 - 100 MG/DL Specimen Performing Laboratory MAIN LAB [address] [place] [address] * CBC (12/15/2017 7:26 PM) Component Value [...] Performing Laboratory Blood [facility]IN [facility] [address] [place] [address] * TRANSFUSE RBC'S BLEEDING PT OR EXCHANGE TRANSFUSION (12/15/2017 6:54 PM) Specimen Performing Laboratory Blood * POC GLUCOSE (12/15/2017 5:32 PM) Component Value Ref Range Glucose, POC 255 (H) 70 - 100 MG/DL Specimen Performing Laboratory [facility]IN [facility] [address] [place] [address] * TEG WITH KAOLIN (12/15/2017 3:25 PM) [...] Specimen Performing Laboratory Blood MAIN LAB [address] [place] [address] * CBC (12/15/2017 1:45 PM) Component Value [...] [place] Specimen Performing Laboratory Blood MAIN LAB [address] [place], [place] [id number] * POC GLUCOSE (12/15/2017 8:54 AM) Component Value Ref Range Glucose, POC 177 (H) 70 - 100 MG/DL Specimen Performing Laboratory MAIN LAB [address] [place], [place] [id number] * BLOOD GASES, ARTERIAL (12/15/2017 8:45 AM) Component Value Ref Range pH-Arterial 7.36 7.35 - 7.45 pCO2-Arterial 22 (L) 35 - 45 MMHG pO2-Arterial 136 (H) 80 - 100 MMHG Base Deficit-Arterial 12.5 MMOL/L O2 Sat-Arterial 99.4 (H) 95 - 99 % Kzbqorbwrda-GCG-Iir 14.5 (L) 21 - 28 MMOL/L Specimen Performing Laboratory Blood, arterial - Blood MAIN LAB [address] [place], [place] [id number] * POC GLUCOSE (12/15/2017 6:45 AM) Component Value Ref Range Glucose, POC 206 (H) 70 - 100 MG/DL Specimen Performing Laboratory MAIN LAB [address] [place], [place] [id number] * CBC (12/15/2017 5:40 AM) Component Value [...] [place] Specimen Performing Laboratory Blood MAIN LAB [address] [place] [address] * BASIC METABOLIC PANEL (12/15/2017 4:40 AM) [...] questions. Specimen Performing Laboratory Blood MAIN LAB [address] [place] [address] * IONIZED CALCIUM (12/15/2017 4:40 AM) Component Value Ref Range Ionized Calcium 1.11 1.0 - 1.3 MMOL/L Specimen Performing Laboratory Blood MAIN LAB [address] [place] [address] * PHOSPHORUS (12/15/2017 4:40 AM) Component Value Ref Range Phosphorus 3.2 2.0 - 4.0 MG/DL Specimen Performing Laboratory Blood MAIN LAB [address] [place] [address] * MAGNESIUM (12/15/2017 4:40 AM) Component Value Ref Range Magnesium 2.0 1.6 - 2.6 mg/dL Specimen Performing Laboratory Blood MAIN LAB [address] [place] [address] 726[address] * LACTIC ACID(LACTATE) (12/14/2017 11:20 PM) Component Value Ref Range Lactic Acid 0.8 0.5 - 2.0 MMOL/L Specimen Performing Laboratory Blood MAIN LAB [address] [place] [address] * BLOOD GASES, ARTERIAL (12/14/2017 11:20 PM) Component Value Ref Range pH-Arterial 7.34 (L) 7.35 - 7.45 pCO2-Arterial 34 (L) 35 - 45 MMHG pO2-Arterial 77 (L) 80 - 100 MMHG Base Deficit-Arterial 7.1 MMOL/L O2 Sat-Arterial 95.3 95 - 99 % Affkxdigejj-WRO-Nhd 18.6 (L) 21 - 28 MMOL/L Specimen Performing Laboratory Blood, arterial - Blood [facility] [address] [place], [place] [id number] * PHOSPHORUS (12/14/2017 11:20 PM) Component Value Ref Range Phosphorus 3.5 2.0 - 4.0 MG/DL Specimen Performing Laboratory Blood [facility]IN [facility] [address] [place], [place] [id number] * MAGNESIUM (12/14/2017 11:20 PM) Component Value Ref Range Magnesium 2.1 1.6 - 2.6 mg/dL Specimen Performing Laboratory Blood [facility]IN [facility] [address] [place], [place] [id number] * BASIC METABOLIC PANEL (12/14/2017 11:20 PM) [...] Specimen Performing Laboratory Blood [facility]IN [facility] [address] [place], [place] [id number] * CBC (12/14/2017 11:20 PM) Component Value [...] [place] Specimen Performing Laboratory Blood MAIN LAB [address] [place], [place] [id number] * POC GLUCOSE (12/14/2017 9:22 PM) Component Value Ref Range Glucose, POC 199 (H) 70 - 100 MG/DL Specimen Performing Laboratory [facility] [address] [place] [address] * CBC AND DIFF (12/14/2017 6:42 PM) [...] K/UL Specimen Performing Laboratory Blood MAIN LAB [address] [place] [address] * PHOSPHORUS (12/14/2017 6:42 PM) Component Value Ref Range Phosphorus 4.0 2.0 - 4.0 MG/DL Specimen Performing Laboratory Blood MAIN LAB [address] [place] [address] * MAGNESIUM (12/14/2017 6:42 PM) Component Value Ref Range Magnesium 2.0 1.6 - 2.6 mg/dL Specimen Performing Laboratory Blood MAIN LAB [address] [place] [address] * BASIC METABOLIC PANEL (12/14/2017 6:42 PM) [...] questions. Specimen Performing Laboratory Blood MAIN LAB [address] [place] [address] * LACTIC ACID(LACTATE) (12/14/2017 6:42 PM) Component Value Ref Range Lactic Acid 1.5 0.5 - 2.0 MMOL/L Specimen Performing Laboratory Blood MAIN LAB [address] [place] [address] 9[address] * PTT (APTT) (12/14/2017 6:42 PM) Component Value Ref Range APTT 23.7 21.0 - 39.0 SEC Specimen Performing Laboratory Blood MAIN LAB [address] [place] [address] 69[address] * BLOOD GASES, ARTERIAL (12/14/2017 6:41 PM) Component Value Ref Range pH-Arterial 7.32 (L) 7.35 - 7.45 pCO2-Arterial 33 (L) 35 - 45 MMHG pO2-Arterial 89 80 - 100 MMHG Base Deficit-Arterial 8.2 MMOL/L O2 Sat-Arterial 97.0 95 - 99 % Wzilwvkbzkl-HJC-Bfd 17.8 (L) 21 - 28 MMOL/L Specimen Performing Laboratory Blood, arterial - Blood MAIN LAB [address] [place] [address] * IONIZED CALCIUM (12/14/2017 6:41 PM) Component Value Ref Range Ionized Calcium 1.14 1.0 - 1.3 MMOL/L Specimen Performing Laboratory Blood MAIN LAB [address] [place] [address] * POTASSIUM, BG (12/14/2017 4:51 PM) Component Value Ref Range Potassium 4.9 3.5 - 5.1 MMOL/L Specimen Performing Laboratory Blood MAIN LAB [address] [place] [address] * SODIUM,BG (12/14/2017 4:51 PM) Component Value Ref Range Sodium 139 137 - 147 MMOL/L Specimen Performing Laboratory Blood MAIN LAB [address] [place] [address] * IONIZED CALCIUM,BG (12/14/2017 4:51 PM) Component Value Ref Range Ionized Calcium 1.12 1.0 - 1.3 MMOL/L Specimen Performing Laboratory Blood MAIN LAB [address] [place] [address] * GLUCOSE,BG (12/14/2017 4:51 PM) Component Value Ref Range Glucose 263 (H) 70 - 100 MG/DL Specimen Performing Laboratory Blood MAIN LAB [address] [place] [address] * BLOOD GASES, ARTERIAL (12/14/2017 4:51 PM) Component Value Ref Range pH-Arterial 7.32 (L) 7.35 - 7.45 pCO2-Arterial 37 35 - 45 MMHG pO2-Arterial 159 (H) 80 - 100 MMHG Base Deficit-Arterial 6.4 MMOL/L O2 Sat-Arterial 99.4 (H) 95 - 99 % Cvunvizjogf-OKE-Ukb 19.2 (L) 21 - 28 MMOL/L Specimen Performing Laboratory Blood, arterial - Blood MAIN LAB [address] [place] [address] * HEMOGLOBIN & HEMATOCRIT, BG (12/14/2017 4:51 PM) Component Value Ref Range Hemoglobin BG 12.0 12.0 - 15.0 GM/DL Hematocrit BG 37.1 36 - 45 % Specimen Performing Laboratory Blood MAIN LAB [address] [place] [address] * DELIVER & TRANSFUSE RED BLOOD CELLS [...] MMOL/L Specimen Performing Laboratory Blood MAIN LAB [address] [place] [address] * SODIUM,BG (12/14/2017 3:45 PM) Component Value Ref Range Sodium 138 137 - 147 MMOL/L Specimen Performing Laboratory Blood MAIN LAB [address] [place] [address] * IONIZED CALCIUM,BG (12/14/2017 3:45 PM) Component Value Ref Range Ionized Calcium 1.12 1.0 - 1.3 MMOL/L Specimen Performing Laboratory Blood MAIN LAB [address] [place] [address] * GLUCOSE,BG (12/14/2017 3:45 PM) Component Value Ref Range Glucose 278 (H) 70 - 100 MG/DL Specimen Performing Laboratory Blood MAIN LAB [address] [place] [address] * BLOOD GASES, ARTERIAL (12/14/2017 3:45 PM) Component Value Ref Range pH-Arterial 7.30 (L) 7.35 - 7.45 pCO2-Arterial 45 35 - 45 MMHG pO2-Arterial 143 (H) 80 - 100 MMHG Base Deficit-Arterial 4.3 MMOL/L O2 Sat-Arterial 99.0 95 - 99 % Cvratqehfad-ZDQ-Sfh 20.8 (L) 21 - 28 MMOL/L Specimen Performing Laboratory Blood, arterial - Blood MAIN LAB [address] [place] [address] * HEMOGLOBIN & HEMATOCRIT, BG (12/14/2017 3:45 PM) Component Value Ref Range Hemoglobin BG 9.7 (L) 12.0 - 15.0 GM/DL Hematocrit BG 30.2 (L) 36 - 45 % Specimen Performing Laboratory Blood MAIN LAB [address] [place] [address] * DELIVER & TRANSFUSE RED BLOOD CELLS (INTRAOP ONLY) (12/14/2017 3:31 PM) Specimen Performing Laboratory Blood * LACTIC ACID (BG - RAPID LACTATE) (12/14/2017 2:34 PM) Component Value Ref Range Lactic Acid,BG 0.8 0.5 - 2.0 MMOL/L Specimen Performing Laboratory Blood MAIN LAB [address] [place] [address] * POTASSIUM, BG (12/14/2017 2:34 PM) Component Value Ref Range Potassium 4.4 3.5 - 5.1 MMOL/L Specimen Performing Laboratory Blood MAIN LAB [address] [place] [address] * SODIUM,BG (12/14/2017 2:34 PM) Component Value Ref Range Sodium 137 137 - 147 MMOL/L Specimen Performing Laboratory Blood MAIN LAB [address] [place] [address] * IONIZED CALCIUM,BG (12/14/2017 2:34 PM) Component Value Ref Range Ionized Calcium 1.12 1.0 - 1.3 MMOL/L Specimen Performing Laboratory Blood MAIN LAB [address] [place] [address] * GLUCOSE,BG (12/14/2017 2:34 PM) Component Value Ref Range Glucose 244 (H) 70 - 100 MG/DL Specimen Performing Laboratory Blood MAIN LAB [address] [place] [address] * BLOOD GASES, ARTERIAL (12/14/2017 2:34 PM) Component Value Ref Range pH-Arterial 7.34 (L) 7.35 - 7.45 pCO2-Arterial 43 35 - 45 MMHG pO2-Arterial 140 (H) 80 - 100 MMHG Base Deficit-Arterial 2.5 MMOL/L O2 Sat-Arterial 99.1 (H) 95 - 99 % Cjluqicztor-JGD-Zam 22.4 21 - 28 MMOL/L Specimen Performing Laboratory Blood, arterial - Blood MAIN LAB [address] [place] [address] * HEMOGLOBIN & HEMATOCRIT, BG (12/14/2017 2:34 PM) Component Value Ref Range Hemoglobin BG 8.5 (L) 12.0 - 15.0 GM/DL Hematocrit BG 26.5 (L) 36 - 45 % Specimen Performing Laboratory Blood MAIN LAB [address] [place] [address] * LACTIC ACID (BG - RAPID LACTATE) (12/14/2017 1:25 PM) Component Value Ref Range Lactic Acid,BG 1.0 0.5 - 2.0 MMOL/L Specimen Performing Laboratory MAIN LAB [address] [place], [place] [id number] * POTASSIUM, BG (12/14/2017 1:25 PM) Component Value Ref Range Potassium 4.5 3.5 - 5.1 MMOL/L Specimen Performing Laboratory Blood MAIN LAB [address] [place], [place] [id number] * SODIUM,BG (12/14/2017 1:25 PM) Component Value Ref Range Sodium 139 137 - 147 MMOL/L Specimen Performing Laboratory Blood MAIN LAB [address] [place], [place] [id number] * IONIZED CALCIUM,BG (12/14/2017 1:25 PM) Component Value Ref Range Ionized Calcium 1.13 1.0 - 1.3 MMOL/L Specimen Performing Laboratory Blood [facility] [address] [place] [address] * GLUCOSE,BG (12/14/2017 1:25 PM) Component Value Ref Range Glucose 236 (H) 70 - 100 MG/DL Specimen Performing Laboratory Blood [facility] [address] [place], [place] [id number] * BLOOD GASES, ARTERIAL (12/14/2017 1:25 PM) Component Value Ref Range pH-Arterial 7.35 7.35 - 7.45 pCO2-Arterial 42 35 - 45 MMHG pO2-Arterial 146 (H) 80 - 100 MMHG Base Deficit-Arterial 2.4 MMOL/L O2 Sat-Arterial 99.2 (H) 95 - 99 % Ifyqhxjbcbr-DVA-Wpj 22.4 21 - 28 MMOL/L Specimen Performing Laboratory Blood, arterial - Blood [facility] [address] [place], [place] [id number] * HEMOGLOBIN & HEMATOCRIT, BG (12/14/2017 1:25 PM) Component Value Ref Range Hemoglobin BG 9.2 (L) 12.0 - 15.0 GM/DL Hematocrit BG 28.6 (L) 36 - 45 % Specimen Performing Laboratory Blood [facility] [address] [place], [place] [id number] * POTASSIUM, BG (12/14/2017 11:44 AM) Component Value Ref Range Potassium 4.6 3.5 - 5.1 MMOL/L Specimen Performing Laboratory Blood MAIN LAB [address] [place], [place] [id number] * SODIUM,BG (12/14/2017 11:44 AM) Component Value Ref Range Sodium 140 137 - 147 MMOL/L Specimen Performing Laboratory Blood MAIN LAB [address] [place] [address] * IONIZED CALCIUM,BG (12/14/2017 11:44 AM) Component Value Ref Range Ionized Calcium 1.17 1.0 - 1.3 MMOL/L Specimen Performing Laboratory Blood MAIN LAB [address] [place] [address] * GLUCOSE,BG (12/14/2017 11:44 AM) Component Value Ref Range Glucose 241 (H) 70 - 100 MG/DL Specimen Performing Laboratory Blood MAIN LAB [address] [place] [address] * BLOOD GASES, ARTERIAL (12/14/2017 11:44 AM) Component Value Ref Range pH-Arterial 7.37 7.35 - 7.45 pCO2-Arterial 43 35 - 45 MMHG pO2-Arterial 127 (H) 80 - 100 MMHG Base Deficit-Arterial 0.7 MMOL/L O2 Sat-Arterial 98.8 95 - 99 % Jukblzvnwjl-JWW-Pgi 23.8 21 - 28 MMOL/L Specimen Performing Laboratory Blood, arterial - Blood MAIN LAB [address] [place] [address] * HEMOGLOBIN & HEMATOCRIT, BG (12/14/2017 11:44 AM) Component Value Ref Range Hemoglobin BG 10.0 (L) 12.0 - 15.0 GM/DL Hematocrit BG 31.0 (L) 36 - 45 % Specimen Performing Laboratory Blood MAIN LAB [address] [place] [address] * SURGICAL PATHOLOGY (12/14/2017 10:23 AM) Component Value Ref Range PATHOLOGY REPORT [facility] [email or web address] Department of Pathology and Laboratory Medicine [address] [place] [address] Surgical Pathology Office:[phone]:[phone] SURGICAL PATHOLOGY REPORT NAME: BEATA [facility]IS[facility] SURG PATH #: [id number] MR #: [id number] SPECIMEN CLASS: SR BILLING #: [id number] ALT ID #:LOCATION: 43 DATE OF PROCEDURE: [...] cm aggregate of gallardo-pink soft tissue fragments. Escalator Service Mechanic sections of the specimen are submitted in [...] submitted to Bios[facility] Repository Core Facility: No Escalator Service Mechanic sections of the specimen are submitted as follows: H1 Escalator Service Mechanic section of skin scar and surrounding gallardo purple bruised-appearing skin. H2 Escalator Service Mechanic proximal skin, soft tissue and muscle margin. H3-H6 Escalator Service Mechanic sections from the hemorrhagic cavity within the subcutaneous and adipose tissue. H7-H10 Tumor within muscle and soft tissue. H11 Bone margin at pubic symphysis (placed in decalcification solution prior to processing). V17-W99Rwbdr within pubis bone adjacent to acetabulum (H12 is placed in decalcification solution prior to processing). H 14-A60Qdgsx within the ilium (H15 is placed in decalcification solution prior to processing). H16 Tumor two gluteus medius. X91-G27Anwkuhheuo industrial sales representative sections throughout the tumor.(brm) I. Received in formalin labeled with the patient's name and "additional tissue, left hemipelvectomy" is a 5.9 x 4.2 x 1.5 cm aggregate of gallardo-pink soft tissue fragments and bone. These tissue fragments are not oriented. Escalator Service Mechanic sections are submitted in cassettes I1 and I2 (I2 is placed in decalcification solution prior to processing). Also in the container is a 9.5 x 7.2 x 3.1 cm red-brown portion of muscle and attached yellow adipose tissue. The specimen is serially sectioned to reveal red-brown unremarkable muscle and yellow unremarkable adipose tissue. Escalator Service Mechanic sections from throughout the specimen are submitted in cassettes I3-I5. (brm) pr/12/14/2017 Intraoperative Consultation: A1FS, skeletal muscle, "paraspinous muscle margin", biopsy: Negative for malignancy. B1FS, skeletal muscle, "abdominal muscle margin", biopsy: Negative for malignancy. C1FS, skeletal muscle, "psoas margin", biopsy: Negative for malignancy. D1FS, bone and soft tissue, "pubis margin", biopsy: Focal atypical cells present. E1FS, bone and soft tissue, "pubis margin #2", biopsy: Microscopic focus suspicious for chondrosarcoma. W5RC-M4SJ, vein contents, "vein contents", biopsy: Chondrosarcoma G1FS, [...] questions. Specimen Performing Laboratory Blood MAIN LAB [address] [place] [address] * CBC (12/14/2017 6:12 AM) Component Value [...] [place] Specimen Performing Laboratory Blood MAIN LAB [address] [place] [address] * PTT (APTT) (12/14/2017 6:12 AM) Component Value Ref Range APTT 29.3 21.0 - 39.0 SEC Specimen Performing Laboratory Blood MAIN LAB [address] [place] [address] * PTT (APTT) (12/13/2017 8:49 PM) Component Value Ref Range APTT 95.1 (H) 21.0 - 39.0 SEC Specimen Performing Laboratory Blood MAIN LAB [address] [place] [address] * PTT (APTT) (12/13/2017 11:30 AM) Component Value Ref Range APTT 38.7 21.0 - 39.0 SEC Specimen Performing Laboratory Blood MAIN LAB [address] [place] [address] * TYPE & CROSSMATCH (12/13/2017 11:17 AM) Component Value Ref Range Units Ordered 8 Crossmatch Expires 12/16/2017 Record Check FOUND ABO/RH(D) A POS Antibody Screen NEG Electronic Crossmatch YES Unit Number [id number] Blood Component Type RBC,ADSOL,LEUKO REDUCED Unit Division 0 Status OF Unit TRANSFUSED Transfusion Status OK TO TRANSFUSE Crossmatch Result COMPATIBLE,ELECTRONIC Unit Number [id number] Blood Component Type RBC,ADSOL,LEUKO REDUCED Unit Division 0 Status OF Unit TRANSFUSED Transfusion Status OK TO TRANSFUSE Crossmatch Result COMPATIBLE,ELECTRONIC Unit Number [id number] Blood Component Type RBC,ADSOL,LEUKO REDUCED Unit Division 0 Status OF Unit TRANSFUSED Transfusion Status OK TO TRANSFUSE Crossmatch Result COMPATIBLE,ELECTRONIC Unit Number [id number] Blood Component Type RBC,ADSOL,LEUKO REDUCED Unit Division 0 Status OF Unit REL FROM ALLOC Transfusion Status OK TO TRANSFUSE Crossmatch Result COMPATIBLE,ELECTRONIC Unit Number [id number] Blood Component Type RBC,ADSOL,LEUKO REDUCED Unit Division 0 Status OF Unit TRANSFUSED Transfusion Status OK TO TRANSFUSE Crossmatch Result COMPATIBLE,ELECTRONIC Unit Number [id number] Blood Component Type RBC,ADSOL,LEUKO REDUCED Unit Division 0 Status OF Unit REL FROM ALLOC Transfusion Status OK TO TRANSFUSE Crossmatch Result COMPATIBLE,ELECTRONIC Unit Number [id number] Blood Component Type RBC,ADSOL,LEUKO REDUCED Unit Division 0 Status OF Unit TRANSFUSED Transfusion Status OK TO TRANSFUSE Crossmatch Result COMPATIBLE,ELECTRONIC Unit Number [id number] Blood Component Type RBC,ADSOL,LEUKO REDUCED,2ND CONT. Unit Division 0 Status OF Unit REL FROM ALLOC Transfusion Status OK TO TRANSFUSE Crossmatch Result COMPATIBLE,ELECTRONIC Unit Number [id number] Blood Component Type RBC,ADSOL,LEUKO REDUCED,2ND CONT. Unit Division 0 Status OF Unit TRANSFUSED Transfusion Status OK TO TRANSFUSE Crossmatch Result COMPATIBLE,ELECTRONIC Specimen Performing Laboratory Blood [facility] [address] [place] [address] * BASIC METABOLIC PANEL (12/13/2017 11:17 AM) [...] Performing Laboratory Blood [facility] [address] [place] [address] * CBC (12/13/2017 11:17 AM) Component Value [...] Performing Laboratory Blood [facility] [address] [place] [address] in this encounter Visit Diagnoses Diagnosis Chondrosarcoma [...] 1 capsule 1 capsule, Feeding Tube, NEEDED (HEAD MACHINE FEEDER FROM RX), Starting 12/27/17 at 1631, Until [...]
--- OUTSIDE RECORDS SUMMARY | 2018-03-06 23:46 | XMS REPORT | Encounter Summary ---
Author Author [facility] Organization [facility] Address Unknown Phone Unavailable Care Team Providers Care Gasoline Service Attendant Name Role Phone Della Cuellar MD PCP Encounter Details Date Type Department Care Team Description 12/30/2017 Procedure Pass [place] Operating Room [address] [place] [address] Social History Tobacco Use Types Packs/Day Years [...]
--- OUTSIDE RECORDS SUMMARY | 2018-03-06 23:46 | XMS REPORT | Encounter Summary ---
Author Author [facility] Organization [facility] Address Unknown Phone Unavailable Care Team Providers Care Revenue Officer Name Role Phone Della Cuellar MD PCP Encounter Details Date Type Department Care Team Description 12/31/2017 Hosp Case Management - Julia Garcia Documentation Work Only [address] [facility] [place] [address] Social History Tobacco Use Types Packs/Day Years [...] [facility] Date of : 1965 Insurance Company: [facility] Policy#: [id number] Phone#: [phone] Phone number for Pre-certification: [phone] Spoke with: Feli in the customer service deparment on 12/31 at 1233. Call reference#: [id number] Effective date of policy#: 09/20/2017 Termination Date#: [...]
--- OUTSIDE RECORDS SUMMARY | 2018-03-06 23:54 | XMS REPORT | Encounter Summary ---
Author Author [facility] Organization [facility] Address Unknown Phone Unavailable Care Team Providers Care Die Grinder Name Role Phone Della Cuellar MD PCP Reason for Visit * Auth/Cert Status Reason Specialty Diagnoses / Referred By Referred To Procedures Contact Contact Diagnoses Pelvic mass Pelvic mass [R19.00] Pelvic mass in female P rocedures MO INTERPELVIABDOMI NAL AMPUTATION JAMIL PELVECTOMY Encounter Details Date Type Department Care Team Description 12/30/2017 Surgery CA Operating Room Aimee Mccollum DO COLOSTOMY DIVERTING LOOP, [address] [place] [address] MS 2005 LYSIS OF ADHESIONS, [place], [place] [id number] Social History Tobacco Use Types Packs/Day Years [...] 4:30 PM) Call the Orthopedic clinic at [phone] AFTER BUSINESS HOURS AND WEEKENDS Call [phone] and ask the coater operator to page the on-call Orthopedic Resident. Discharging attending physician: TAMIKO LUTHER [[id number]] Diabetic Diet Recommend high protein diet for [...] home, you can call a dietitian at [phone]. Tube Feeding Formula: Isosource 1.5 Schedule: Continuous [...] Wednesday wound vac changes. Tunneled Catheter Line Mcfp Care Instructions: The bandage over the catheter [...] Take 1 capsule via feeding tube PRN (Engraver Set Up Operator from Rx) ( Occluded Feeding Tube). PRESCRIPTION [...] to follow up as indicated above. Adrienne aZrate MD Pager [phone] 01/16/2018 cc: Primary Care Physician: Verified Referring [...] 03/02/2018 Units/ sodium bicarbonate feeding tube PRN (Engraver Set Up Operator 650 mg(#) (KU CLOG from Rx) [...] complete: Yes Report called and given to director of rehabilitative services. * Adrienne Zarate MD - 01/14/2018 2:44 [...] recs- recommend [facility] [place] -Psych, DIVISION LEADER psych and psychology consults for coping, depression - appreciate assistance -Endocrine consult for blood sugar management - appreciate recs -ID consult - Ertapenem, micafungin -Nutrition following for optimization -General Surgery consult - colostomy 12/30 Dispo: Plan for DC today to [facility] Adrienne Zarate MD [id number] * Sofía Centeno - 01/14/2018 2:03 PM CDT I have reviewed the students documentation and agree with it. Tita Centeno MSN/MHA RN CCRN Marine Service Manager - [facility] * Chari Moon - 01/14/2018 2:00 PM [...] Cognitive Status: Alert;Cooperative Persons Present: Father;Mother (Supervising SEPTIC TANK SERVICER, SEPTIC TANK SERVICER student) Pain: Patient complains of pain Pain [...] g/kg desired wt.) Oral Diet Order: Diabetic 7907-0582 Kcal/day (60 g Carb/meal, 30 g Carb/HS snack ) Oral Supplement: [place] Breakfast Essentials No Sugar Added Current EN Order: Nutren 1.5 @ 75ml/hr x's 6 hrs from 2356-0229, 3 ProSource/ day (At goal will provide: [...] for dc today to rehab. Recommendation: Continue 5772-2662 Consistent Carb Diet. Continue Nutren 1.5 @ [...] Throughout Stay Status: Ongoing Emma See, RD #[id number]. * Sofía Centeno - 01/14/2018 11:54 AM CDT I have reviewed the students documentation and agree with it. Tita Centeno MSN/MHA RN CCRN Marine Service Manager - [facility] * Nani Lynch, - 01/14/2018 11:30 AM [...] Lynch DO Division of Infectious Diseases Pager [phone] Interval History Afebrile, vitals stable. Feeling "ok" [...] 20,000 Units/ sodium bicarbonate 650 mg(#) PRN (Engraver Set Up Operator from Rx), simethicone Q6H PRN Physical Examination [...] Pertinent radiology reviewed Nani Lynch DO Pager [phone] ID * Nani Mcelroy RN - 01/14/2018 [...] Moist;Red;Gallardo;Yellow 01/14/2018 11:00 AM Surrounding Skin Assessment Excoriated;Flasher;Edema 01/14/2018 11:00 AM Wound Drainage Amount Large [...] BSN Wound Ostomy Nursing Consult Service Office: [phone] Pager: [phone] After hours Wound/Ostomy team pager : [phone] * Lexus Shirley, OT - 01/14/2018 10:00 AM CDT Formatting of this note may be different from the original. OCCUPATIONAL THERAPY PROGRESS NOTE Patient Name: Beata Kaiser Room[facility]Bed: [id number] Admitting Diagnosis: Pelvic mass [R19.00] Pelvic mass [...] tub and ramps. 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 Endocrinology Hospital Follow Up Visit Today's Date: 01/14/2018 Admission Date: 12/13/2017 Assessment: 1. DM type 2 with stress hyperglycemia A1c 6.5 , controlled SEPTIC TANK SERVICER regimen: Metformin thousand milligrams twice a day, jardiance 25 mg daily Hypoglycemic episodes on this regimen: None and not checking blood sugars at home Follows up with for diabetes management: Primary care physician at [facility] Diabetic-complications assessment: Retinopathy: None Peripheral neuropathy: Yes on treatment Autonomic neuropathy: None Nephropathy: None Macrovascular complications: None Risk factor assessment: Last lipid profile - None on file On ACEi/ARB: Yes On Statin: yes 2. Hypothyroidism SEPTIC TANK SERVICER 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 daily TSH 2.1 [...] 20,000 Units/ sodium bicarbonate 650 mg(#) PRN (Engraver Set Up Operator from Rx), simethicone Q6H PRN Physical Examination [...] 01:40 PM No results found for: FREET3, [id number], THYBINDGLB Kalie Sibley, Endocrine fellow Pager [phone] * Nani Lynch, DO - 01/13/2018 11:34 [...] Nani Lynch, Division of Infectious Diseases Pager [phone] Interval History Afebrile, vitals stable. ROS - [...] 20,000 Units/ sodium bicarbonate 650 mg(#) PRN (Engraver Set Up Operator from Rx), simethicone Q6H PRN Physical Examination [...] Pertinent radiology reviewed Chari Pedro DO Pager [phone] ID fellow * Adrienne Zarate MD - [...] recs- recommend [facility] [place] -Psych, DIVISION LEADER psych and psychology consults for coping, depression - appreciate assistance -Endocrine consult for blood sugar management - appreciate recs -ID consult - Ertapenem, micafungin -Nutrition following for optimization -General Surgery consult - colostomy 12/30 Dispo: Plan for DC Wednesday to Rehab Adrienne Zarate MD [id number] * Lexus Shirley, OT - 01/13/2018 10:59 AM CDT Formatting of this note may be different from the original. OCCUPATIONAL THERAPY PROGRESS NOTE Patient Name: Beata Kaiser Room/Bed: [place] [address] Admitting Diagnosis: Pelvic mass [R19.00] Pelvic mass [...] tub and ramps. 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 Equipment Recommendations: [facility] Additional Information: Recommend ongoing assistance for: Transfers, Bed mobility, Dressing, Bathing, Toileting Therapist: SACHA Nath/Tapan [id number] Date: 01/13/2018 * Arnaldo Delacruz MD - [...] Beata Kaiseris a 52 y.o.[facility] the following issues: S/p [...] a 52 yo F who presented to [facility] on 12/13/17 for scheduled left hemipelvectomy [...] mod assist for transfers (slide board) with [facility] coming . Recommendations: The patient continues to demonstrate improved function and activity tolerance with rehab therapies. Recommend acute inpatient rehab when medically stable. Arnaldo Delacruz MD Subjective Beata Kaiser is a 52 y.o. female. She was evaluated transferring (slide board) to [facility] at mod assist X 1. She feels [...] of bed. Pt supine at OT departure. BUILDING EQUIPMENT OPERATOR COGNITIVE EVALUATION SUMMARY PRAGMATICS: BEHAVIOR: AUDITORY COMPREHENSION: [...] 20,000 Units/ sodium bicarbonate 650 mg(#) PRN (Engraver Set Up Operator from Rx), simethicone Q6H PRN Objective Vital [...] Stool Occurrence: 1 Oral Diet Order: Diabetic 6031-9269 Kcal/day (60 g Carb/meal, 30 g Carb/HS [...] with stress hyperglycemia A1c 6.5 , controlled SEPTIC TANK SERVICER regimen: Metformin thousand milligrams twice a day, jardiance 25 mg daily Hypoglycemic episodes on this regimen: None and not checking blood sugars at home Follows up with for diabetes management: Primary care physician at [facility] Diabetic-complications assessment: Retinopathy: None Peripheral neuropathy: Yes on treatment Autonomic neuropathy: None Nephropathy: None Macrovascular complications: None Risk factor assessment: Last lipid profile - None on file On ACEi/ARB: Yes On Statin: yes 2. Hypothyroidism SEPTIC TANK SERVICER 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 daily TSH 2.1 [...] 20,000 Units/ sodium bicarbonate 650 mg(#) PRN (Engraver Set Up Operator from Rx), simethicone Q6H PRN Physical Examination [...] 01:40 PM No results found for: FREET3, [id number], THYBINDGLB Kalie Sibley, Endocrine fellow Pager [phone] * Lynn Barrera - 01/12/2018 3:40 PM [...] with stress hyperglycemia A1c 6.5 , controlled SEPTIC TANK SERVICER regimen: Metformin thousand milligrams twice a day, jardiance 25 mg daily Hypoglycemic episodes on this regimen: None and not checking blood sugars at home Follows up with for diabetes management: Primary care physician at [facility] Diabetic-complications assessment: Retinopathy: None Peripheral neuropathy: Yes on treatment Autonomic neuropathy: None Nephropathy: None Macrovascular complications: None Risk factor assessment: Last lipid profile - None on file On ACEi/ARB: Yes On Statin: yes 2. Hypothyroidism SEPTIC TANK SERVICER 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 daily TSH 2.1 [...] 20,000 Units/ sodium bicarbonate 650 mg(#) PRN (Engraver Set Up Operator from Rx), simethicone Q6H PRN Physical Examination [...] 01:40 PM No results found for: FREET3, [id number], THYBINDGLB Kalie Sibley, Endocrine fellow Pager [phone] * Chari Moon - 01/12/2018 2:08 PM [...] Status: Alert;Cooperative;Oriented Persons Present: Nursing Staff (Supervising SEPTIC TANK SERVICER) Pain: Patient complains of pain Pain Location: [...] Lynch DO Division of Infectious Diseases Pager [phone] Interval History Afebrile, vitals stable. Pt is [...] 20,000 Units/ sodium bicarbonate 650 mg(#) PRN (Engraver Set Up Operator from Rx), simethicone Q6H PRN Physical Examination [...] Pertinent radiology reviewed Chari Pedro DO Pager [phone] ID fellow * Jasper Betts RN - [...] Used 2 doses of fentanyl IV 50 bzr=228 mcg ~ 10 mg Please call with questions/concerns. Jasper Betts, MSN, RN- Clinical Nurse Coordinator Pain Management [phone] Team pager [phone] * Pancho De Souza, PhD - 01/12/2018 12:29 PM CDT Formatting of this note may be different from the original. Psychology Consult Service ([phone]) Beata Kaiser is a 52 year-old female [...] 52 year old female. She is from [place] and currently lives in [place]. 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 She is and has 3 children. She currently lives with her family in [place], [place]. MSE: 52 year-old female, supine in [...] questions or concerns. Pancho De Souza, PhD [phone] Licensed Psychologist Department of Psychiatry and Behavioral [...] consult- appreciate recs- recommend [facility] [place] -Psych, DIVISION LEADER psych and psychology consults for coping, depression - appreciate assistance -Endocrine consult for blood sugar management - appreciate recs -ID consult - Zosyn, micafungin -Nutrition following for optimization -General Surgery consult - colostomy 12/30 Dispo: Plan for likely DC Wednesday to Rehab pending tolerating wound vac changes Adrienne Zarate MD [id number] * Lexus Shirley, OT - 01/12/2018 9:58 AM CDT Formatting of this note may be different from the original. OCCUPATIONAL THERAPY PROGRESS NOTE Patient Name: Beata Kaiser Room/Bed: QU1789/01 Admitting Diagnosis: Pelvic mass [R19.00] Pelvic mass [...] tub and ramps. 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 Equipment Recommendations: [facility] Additional Information: Recommend ongoing assistance for: Transfers, Dressing, Bathing, Toileting Therapist: Lexus Shirley, OTR/L [id number] Date: 01/12/2018 * Adrienne Zarate MD - [...] recs- recommend [facility] [place] -Psych, DIVISION LEADER psych and psychology consults for coping, depression - appreciate assistance -Endocrine consult for blood sugar management - appreciate recs -ID consult - Zosyn, micafungin -Nutrition following for optimization -General Surgery consult - colostomy 12/30 Dispo: Plan for possible DC Wednesday to Rehab pending tolerating wound vac changes Adrienne Zarate MD [id number] * Hugh Quintana MD - 01/11/2018 9:31 [...] between 8am and 3pm on weekends at [phone]. Otherwise, page the oral and maxillofacial surgery resident alteration worker. Subjective: Beata Bainsmari Kaiser is seen for [...] Units / sodium bicarbonate 650 mg(#) PRN (Engraver Set Up Operator from Rx), simethicone Q6H PRN 80 mg [...] 20,000 Units/ sodium bicarbonate 650 mg(#) PRN (Engraver Set Up Operator from Rx), simethicone Q6H PRN Physical Examination [...] g/kg desired wt.) Oral Diet Order: Diabetic 5476-5254 Kcal/day (60 g Carb/meal, 30 g Carb/HS snack ) Oral Supplement: [place] Breakfast Essentials No Sugar Added Intake (calories) Daily Average : 1332 kilocalories (80% yesterday) Intake (protein) Daily Average : 85 grams (70-85% needs yesterday.) Current EN Order: Nutren 1.5 @ 75ml/hr x's 12 hrs (8386-0077) + 2 Liquid ProSource/day (At goal provides: [...] was given steroid during surgery. Recommendation: Continue 0962-3199 Consistent Carb Diet. Continue SF CIB with [...] Throughout Stay Status: Ongoing Emma See, RD #[id number]. * Lexus Shirley, OT - 01/11/2018 11:52 AM CDT Formatting of this note may be different from the original. OCCUPATIONAL THERAPY PROGRESS NOTE Patient Name: Beata Kaiser Room[facility]: [id number] Admitting Diagnosis: Pelvic mass [R19.00] Pelvic mass [...] tub and ramps. 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 Equipment Recommendations: [facility] Additional Information: Recommend ongoing assistance for: Transfers, Dressing, Bathing, Toileting Therapist: SACHA Nath/Tapan [id number] Date: 01/11/2018 * Linus Pisano MD - 01/11/2018 11:51 AM CDT Formatting of this note may be different from the original. Endocrinology Hospital Follow Up Visit Today's Date: 01/11/2018 Admission Date: 12/13/2017 Assessment: 1. DM type 2 with stress hyperglycemia A1c 6.5 , controlled SEPTIC TANK SERVICER regimen: Metformin thousand milligrams twice a day, jardiance 25 mg daily Hypoglycemic episodes on this regimen: None and not checking blood sugars at home Follows up with for diabetes management: Primary care physician at [facility] Diabetic-complications assessment: Retinopathy: None Peripheral neuropathy: Yes on treatment Autonomic neuropathy: None Nephropathy: None Macrovascular complications: None Risk factor assessment: Last lipid profile - None on file On ACEi/ARB: Yes On Statin: yes 2. Hypothyroidism SEPTIC TANK SERVICER 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 daily TSH 2.1 [...] 20,000 Units/ sodium bicarbonate 650 mg(#) PRN (Engraver Set Up Operator from Rx), simethicone Q6H PRN Physical Examination [...] 01:40 PM No results found for: FREET3, [id number], THYBINDGLB Kalie Sibley, Endocrine fellow Pager [phone] * Arnaldo Delacruz MD - 01/11/2018 10:50 [...] Beata Kaiseris a 52 y.o.femalead[facility] the following issues: S/p [...] a 52 yo F who presented to [facility] on 12/13/17 for scheduled left hemipelvectomy [...] able to clear buttocks better this day BUILDING EQUIPMENT OPERATOR COGNITIVE EVALUATION SUMMARY PRAGMATICS: BEHAVIOR: AUDITORY COMPREHENSION: [...] Units/ sodium bicarbonate 650 mg(#) PRN ( Engraver Set Up Operator from Rx), simethicone Q6H PRN Objective Vital [...] Stool Occurrence: 1 Oral Diet Order: Diabetic 2634-9827 Kcal/day (60 g Carb/meal, 30 g Carb/HS [...] Units/ sodium bicarbonate 650 mg(#) PRN ( Engraver Set Up Operator from Rx), simethicone Q6H PRN Physical Examination [...] with stress hyperglycemia A1c 6.5 , controlled SEPTIC TANK SERVICER regimen: Metformin thousand milligrams twice a day, [...] ACEi/ARB: Yes On Statin: yes 2. Hypothyroidism SEPTIC TANK SERVICER 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 daily TSH 2.1 [...] Units/ sodium bicarbonate 650 mg(#) PRN ( Engraver Set Up Operator from Rx), simethicone Q6H PRN Physical Examination [...] 01:40 PM No results found for: FREET3, [id number], THYBINDGLB Kalie Sibley, Endocrine fellow Pager [phone] * Cassandra Villatoro - 01/10/2018 2:09 PM [...] up tomorrow post-operatively. Therapist: Lexus Shirley OTR/Tapan [id number] Date: 01/10/2018 * Adrienne Zarate MD - [...] recs- recommend [facility] [place] -Psych, DIVISION LEADER psych and psychology consults for coping, depression - appreciate assistance -Endocrine consult for blood sugar management - appreciate recs -ID consult - Zosyn, micafungin -Nutrition following for optimization -General Surgery consult - colostomy 12/30 -Sodium normalizing- discontinue fluid restriction Dispo: Continued drainage, plan for OR today for wound exploration and wound vac placement Adrienne Zarate MD 7107 * Earl Shetty MD - 01/09/2018 1:54 [...] with stress hyperglycemia A1c 6.5 , controlled SEPTIC TANK SERVICER regimen: Metformin thousand milligrams twice a day, jardiance 25 mg daily Hypoglycemic episodes on this regimen: None and not checking blood sugars at home Follows up with for diabetes management: Primary care physician at [facility] Diabetic-complications assessment: Retinopathy: None Peripheral neuropathy: Yes on treatment Autonomic neuropathy: None Nephropathy: None Macrovascular complications: None Risk factor assessment: Last lipid profile - None on file On ACEi/ARB: Yes On Statin: yes 2. Hypothyroidism SEPTIC TANK SERVICER 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 daily TSH 2.1 [...] Units/ sodium bicarbonate 650 mg(#) PRN ( Engraver Set Up Operator from Rx), simethicone Q6H PRN Physical Examination [...] 09:45 AM No results found for: FREET3, [id number], THYBINDGLB Pertinent radiology images viewed. Deonna Diaz [...] Diabetic diet, nocturnal tube feeds. NPO at AR for OR tomorrow -Posted for OR 01/10 [...] recs- recommend [facility] [place] -Psych, DIVISION LEADER psych and psychology consults for coping, depression - appreciate assistance -Endocrine consult for blood sugar management - appreciate recs -ID consult - Zosyn, micafungin -Nutrition following for optimization -General Surgery consult - colostomy 12/30 -Sodium normalizing- discontinue fluid restriction Dispo: Continued drainage, plan for OR 01/10 for wound exploration and wound vac placement Adrienne Zarate MD 5979 * Tamiko Luther MD - 01/09/2018 7:35 [...] she wishes to proceed. * Herminia Gant, DIE GRINDER - 01/08/2018 2:47 PM CDT OCCUPATIONAL THERAPY [...] tub and ramps. 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 Equipment Recommendations: [facility] Therapist: HUYEN Schmidt Date: 01/08/2018 * Adrienne [...] instead of SNF, would prefer [facility] -Psych, DIVISION LEADER psych and psychology consults for coping, depression - appreciate assistance -Endocrine consult for blood sugar management - appreciate recs -ID consult - Zosyn, micafungin -Nutrition following for optimization -General Surgery consult - colostomy 12/30 Dispo: Continue inpatient care, if drainage persists over the weekend then plan for exploration of wound and wound vac placement in OR on 01/11 Adrienne Zarate MD [id number] * Annette Ling RN - 01/07/2018 5:41 [...] will round on Wednesday. Please call ID alteration worker in the interim if questions arise. Complexity [...] Units/ sodium bicarbonate 650 mg(#) PRN ( Engraver Set Up Operator from Rx), simethicone Q6H PRN Physical Examination [...] gabapentin 800 mg PO q 8 hours ([id number]) to increase daily serum concentration and more [...] MSN, RN- Clinical Nurse Coordinator Pain Management [phone] Team pager [phone] * Kalie Sibley MBBS - 01/07/2018 2:01 PM CDT Formatting of this note may be different from the original. Endocrinology Hospital Follow Up Visit Today's Date: 01/07/2018 Admission Date: 12/13/2017 Assessment: 1. DM type 2 with stress hyperglycemia A1c 6.5 , controlled SEPTIC TANK SERVICER regimen: Metformin thousand milligrams twice a day, jardiance 25 mg daily Hypoglycemic episodes on this regimen: None and not checking blood sugars at home Follows up with for diabetes management: Primary care physician at [facility] Diabetic-complications assessment: Retinopathy: None Peripheral neuropathy: Yes on treatment Autonomic neuropathy: None Nephropathy: None Macrovascular complications: None Risk factor assessment: Last lipid profile - None on file On ACEi/ARB: Yes On Statin: yes 2. Hypothyroidism SEPTIC TANK SERVICER 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 daily TSH 2.1 [...] Units/ sodium bicarbonate 650 mg(#) PRN ( Engraver Set Up Operator from Rx), simethicone Q6H PRN Physical Examination [...] 09:45 AM No results found for: FREET3, [id number], THYBINDGLB Pertinent radiology images viewed. RAMIREZ Soto [...] instead of SNF, would prefer [facility] -Psych, DIVISION LEADER psych and psychology consults for coping, depression - appreciate assistance -Endocrine consult for blood sugar management - appreciate recs -ID consult - Zosyn, micafungin -Nutrition following for optimization -General Surgery consult - colostomy 12/30 Dispo: Continue inpatient care, if drainage persists over the weekend then plan for exploration of wound and wound vac placement in OR on 01/11 Adrienne Zarate MD 0814 * Lexus Shirley, OT - 01/07/2018 11:11 AM CDT Formatting of this note may be different from the original. OCCUPATIONAL THERAPY PROGRESS NOTE Patient Name: Beata Kaiser Room/Bed: [place] [address] Admitting Diagnosis: Pelvic mass [R19.00] Pelvic mass [...] tub and ramps. 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 Equipment Recommendations: [facility] Additional Information: Recommend ongoing assistance for: Transfers, Bed mobility, Dressing, Bathing, Toileting Therapist: Lexus Shirley, LELANDR/L [id number] Date: 01/07/2018 * Jasper Betts RN - 01/07/2018 9:18 AM CDT Inpatient Pain Management Nurses - Clinical [facility] Nursing Practice - Follow -Up Primary [...] MSN, RN-BC Clinical Nurse Coordinator Pain Management [phone] Team pager [phone] * Fareed Holcomb MD - 01/07/2018 8:10 AM CDT Formatting of this note may be different from the original. Surgical Oncology Daily Progress Note Today's Date: 01/07/2018 Name: eBata Kaiser Admission Date: 12/13/2017 (LOS: 25 days) [...] sign off at this time. Please page [phone] if you have any questions regarding the [...] Sensory intact. Fareed Holcomb MD Personal Pager: #[phone] Team Pager: # [phone] * Indy Isabel MD - 01/06/2018 6:43 [...] 20,000 Units/ sodium bicarbonate 650 mg(#) PRN (Engraver Set Up Operator from Rx), simethicone Q6H PRN Physical Examination [...] hospital : 1965 AGE: 52 y.o. ROOM: [place] [address] DOCTOR: Date of Order: 01/06/18 Date of Service: 01/06/18 Services referred for: Prosthetic Eval and Treat: Hip Signals Officer Description of condition/injury, including services:Amputations Size: 1X [...] Status: Alert;Cooperative Persons Present: Sister;Nursing Staff (Supervising SEPTIC TANK SERVICER) Pain: Patient complains of pain Pain Location: [...] non-insulin dependent diabetes mellitus who presented to [facility] on 12/13/17 for scheduled left hemipelvectomy [...] further assistance , the service should page [phone] (24 hours a day/7 days a week) [...] 20,000 Units/ sodium bicarbonate 650 mg(#) PRN (Engraver Set Up Operator from Rx), simethicone Q6H PRN Review of [...] Pertinent radiology reviewed. Hugh Salinas MD Pager [phone] * Emma See RD - 01/06/2018 1:19 PM CDT CLINICAL NUTRITION Clinical Nutrition Follow-Up Summary Nutrition Assessment of Patient: Malnutrition Assessment: Adequately nourished prior to admission Current Oral Intake: Marginally Adequate Estimated Calorie Needs: 1660 (30 kcals/kg per DBW 55.3 kg due to large surgical wound) Estimated Protein Needs: 100-120 (1.5-2.2 g/kg desired wt.) Oral Diet Order: Diabetic 9433-2061 Kcal/day (60 g Carb/meal, 30 g Carb/HS snack ) Oral Supplement: [place] Breakfast Essentials No Sugar Added, Protein Powder, TID EN Intake (calories) Daily Average : 1407 kilocalories (85% via EN only over past 3 d avg.(nocturnal only since 01/04) EN Intake (protein) Daily Average : 72 grams (60-72% via EN only over past 3 day avg.) Current EN Order: Nutren 1.5 @ 75ml/hr x's 12 hrs (1566-5977) + 2 Liquid ProSource/day (At goal provides: [...] noted as tender and distended, firm per documentation engineer. CT completed this morning with no note [...] to floor RD on 01/03. Recommendation: Continue [phone] Consistent Carb Diet. Please encourage SUGER FREE [...] Time Frame: Throughout Stay Emma See, RD #[id number]. * Kalie Sibley MBBS - 01/06/2018 1:12 PM CDT Formatting of this note may be different from the original. Endocrinology Hospital Follow Up Visit Today's Date: 01/06/2018 Admission Date: 12/13/2017 Assessment: 1. DM type 2 with stress hyperglycemia A1c 6.5 , controlled SEPTIC TANK SERVICER regimen: Metformin thousand milligrams twice a day, jardiance 25 mg daily Hypoglycemic episodes on this regimen: None and not checking blood sugars at home Follows up with for diabetes management: Primary care physician at [facility] Diabetic-complications assessment: Retinopathy: None Peripheral neuropathy: Yes on treatment Autonomic neuropathy: None Nephropathy: None Macrovascular complications: None Risk factor assessment: Last lipid profile - None on file On ACEi/ARB: Yes On Statin: yes 2. Hypothyroidism SEPTIC TANK SERVICER 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 daily TSH 2.1 [...] 20,000 Units/ sodium bicarbonate 650 mg(#) PRN (Engraver Set Up Operator from Rx), simethicone Q6H PRN Physical Examination [...] 09:45 AM No results found for: FREET3, [id number], THYBINDGLB Pertinent radiology images viewed. RAMIREZ Soto [...] RE-ASSESSMENT NOTE Patient Name: Beata Kaiser Room/Bed: [place] [address] Admitting Diagnosis: Pelvic mass [R19.00] Pelvic mass [...] tub and ramps. 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 Equipment Recommendations: [facility] [place] Additional Information: Recommend ongoing assistance for: Dressing, Bathing, Toileting, Transfers Therapist: SACHA Nath/[place] [id number] Date: 01/06/2018 * Adrienne Zarate MD - [...] instead of SNF, would prefer [facility], DIVISION LEADER psych and psychology consults for coping, depression - appreciate assistance -Endocrine consult for blood sugar management - appreciate recs -ID consult - Zosyn, micafungin -Nutrition following for optimization -General Surgery consult - colostomy 12/30 Dispo: Continue inpatient care Adrienne Zarate MD [phone] * Jami Edwards, RN - 01/05/2018 10:30 [...] and with some maceration around distal/posterior wound. [place] in place. Some areas of necrotic tissue [...] Garsia RN, BSN Wound /Ostomy Team Pager [phone] After Hours Wound/Ostomy team pager [phone] * Kalie Sibley MBBS - 01/05/2018 3:01 PM CDT Formatting of this note may be different from the original. Endocrinology Hospital Follow Up Visit Today's Date: 01/05/2018 Admission Date: 12/13/2017 Assessment: 1. DM type 2 with stress hyperglycemia A1c 6.5 , controlled SEPTIC TANK SERVICER regimen: Metformin thousand milligrams twice a day, [...] ACEi/ARB: Yes On Statin: yes 2. Hypothyroidism SEPTIC TANK SERVICER 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 daily TSH 2.1 [...] 20,000 Units/ sodium bicarbonate 650 mg(#) PRN (Engraver Set Up Operator from Rx), simethicone Q6H PRN Physical Examination [...] 09:45 AM No results found for: FREET3, [id number], THYBINDGLB Pertinent radiology images viewed. RAMIREZ Soto [...] Cognitive Status: Alert;Cooperative;Oriented Persons Present: Sister (Supervising SEPTIC TANK SERVICER, Wound team staff at beginning of session) [...] non-insulin dependent diabetes mellitus who presented to [facility] on 12/13/17 for scheduled left hemipelvectomy [...] further assistance , the service should page [phone] (24 hours a day/7 days a week) [...] 20,000 Units/ sodium bicarbonate 650 mg(#) PRN (Engraver Set Up Operator from Rx) Review of Systems: A 14 [...] 0304) POC Glucose (Download): (!) 265 (01/05/18 5923) Radiology and other Diagnostics Review: Pertinent radiology reviewed. Hugh Salinas MD Pager [phone] * Herminia Gant OTA - 01/05/2018 11:14 [...] instead of SNF, would prefer [facility], DIVISION LEADER psych and psychology consults for coping, depression - appreciate assistance -Endocrine consult for blood sugar management - appreciate recs -ID consult - Zosyn, micafungin -Nutrition following for optimization - TPN (continue for now), tube feeds switched to nocturnal. - Prealbumin 18 and albumin 2.2 -General Surgery consult - colostomy 12/30 Dispo: Continue inpatient care Rebekah [phone] * Jasper Betts, RN - 01/05/2018 9:45 AM CDT Inpatient Pain Management Nurses - [facility] Nursing Practice - Follow -Up Discussed patient with Nallely GRACE. Primary team is responsible for entering orders. Suggested Plan for the Day: Continue current pain regimen. Of note gabapentin was changed from 600 mg q6 hours to 800 mg q 12 hours. Suggestions was every 6 hours [phone]. Will continue with new dose today and [...] MSN, RN- Clinical Nurse Coordinator Pain Management [phone] Team pager [phone] * Indy Isabel MD - 01/05/2018 7:01 [...] 20,000 Units/ sodium bicarbonate 650 mg(#) PRN (Engraver Set Up Operator from Rx) Physical Examination Vital Signs: Last [...] 20,000 Units/ sodium bicarbonate 650 mg(#) PRN (Engraver Set Up Operator from Rx) Physical Examination Vital Signs: Last [...] with stress hyperglycemia A1c 6.5 , controlled SEPTIC TANK SERVICER regimen: Metformin thousand milligrams twice a day, jardiance 25 mg daily Hypoglycemic episodes on this regimen: None and not checking blood sugars at home Follows up with for diabetes management: Primary care physician at [facility] Diabetic-complications assessment: Retinopathy: None Peripheral neuropathy: Yes on treatment Autonomic neuropathy: None Nephropathy: None Macrovascular complications: None Risk factor assessment: Last lipid profile - None on file On ACEi/ARB: Yes On Statin: yes 2. Hypothyroidism SEPTIC TANK SERVICER 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 daily TSH 2.1 [...] 20,000 Units/ sodium bicarbonate 650 mg(#) PRN (Engraver Set Up Operator from Rx) Physical Examination Vital Signs: Last [...] 09:45 AM No results found for: FREET3, [id number], THYBINDGLB Pertinent radiology images viewed. Impression: RAMIREZ [...] Agree With My Assessment? Wound Base Assessment Moist;Flasher;Gallardo;Yellow Surrounding Skin Assessment Intact Wound Site Closure None Wound Drainage Amount None Wound Drainage Description Serosanguineous Wound Dressing Status Intact Wound Dressing and / or Treatment Aquacel AG Number of days: 15 Wounds (NOT for Pressure Injuries) 12/23/17 1345 Left Labia (Active) 12/23/17 1345 Labia Wound Orientation: Left Wound Type: Wound Type:: Wound Description (Comments): Wound Base Assessment Moist;Pale;Flasher;Yellow Surrounding Skin Assessment Edema Wound Site Closure [...] Right (Active) 12/30/17 1209 Right Stoma Assessment Flasher, round, protruding Drainage Description Gallardo;Brown Peristomal Skin [...] BSN Wound Ostomy Nursing Consult Service Office: [phone] Pager: [phone] After hours Wound/Ostomy team pager : [phone] * Arnaldo Delacruz MD - 01/04/2018 11:45 [...] Beata Kaiseris a 52 y.o.[facility] the following [facility]: S/p [...] a 52 yo F who presented to [facility] on 12/13/17 for scheduled left hemipelvectomy [...] a significant amount of fluid. RN notified. BUILDING EQUIPMENT OPERATOR COGNITIVE EVALUATION SUMMARY PRAGMATICS: BEHAVIOR: AUDITORY COMPREHENSION: [...] 20,000 Units/ sodium bicarbonate 650 mg(#) PRN (Engraver Set Up Operator from Rx) Objective Vital Signs: Last Filed [...] instead of SNF, would prefer [facility], DIVISION LEADER psych and psychology consults for coping, depression - appreciate assistance -Endocrine consult for blood sugar management - appreciate recs -ID consult - Zosyn, micafungin -Nutrition following for optimization - TPN (continue for now), tube feeds switched to nocturnal. - Prealbumin and albumin ordered. -General Surgery consult - colostomy 12/30 Dispo: Continue inpatient care César Davis MD [phone] * Chari Moon - 01/04/2018 10:32 AM [...] Status: Alert;Oriented;Cooperative Persons Present: Sister;Nursing Staff (Supervising SEPTIC TANK SERVICER) Pain: Patient complains of pain;During activity Pain [...] 20,000 Units/ sodium bicarbonate 650 mg(#) PRN (Engraver Set Up Operator from Rx) Physical Examination Vital Signs: Last [...] Microbiology data reviewed. Chari Pedro DO Pager [phone] ID fellow * Chari Moon - 01/03/2018 [...] PROGRESS NOTE Patient Name: Beata Kaiser Room/Bed: [place] [address] Admitting Diagnosis: Pelvic mass [R19.00] Pelvic mass [...] of house, Stairs, Toileting Therapist: JOHNATHON Olivarez [id number] Date: 01/03/2018 * Kalie Sibley MBBS - 01/03/2018 12:05 PM CDT Formatting of this note may be different from the original. Endocrinology Hospital Follow Up Visit Today's Date: 01/03/2018 Admission Date: 12/13/2017 Assessment: 1. DM type 2 with stress hyperglycemia A1c 6.5 , controlled SEPTIC TANK SERVICER regimen: Metformin thousand milligrams twice a day, jardiance 25 mg daily Hypoglycemic episodes on this regimen: None and not checking blood sugars at home Follows up with for diabetes management: Primary care physician at [facility] Diabetic-complications assessment: Retinopathy: None Peripheral neuropathy: Yes on treatment Autonomic neuropathy: None Nephropathy: None Macrovascular complications: None Risk factor assessment: Last lipid profile - None on file On ACEi/ARB: Yes On Statin: yes 2. Hypothyroidism SEPTIC TANK SERVICER 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 daily TSH 2.1 [...] 20,000 Units/ sodium bicarbonate 650 mg(#) PRN (Engraver Set Up Operator from Rx) Physical Examination Vital Signs: Last [...] 09:45 AM No results found for: FREET3, [id number], THYBINDGLB Pertinent radiology images viewed. Impression: RAMIREZ [...] AM CDT Inpatient Pain Management Nurses - [facility] Nursing Practice - Follow -Up Primary team is responsible for entering orders. Suggested Plan for the Day: Change acetaminophen 1000 mg PO q 8 hours, [id number] - Patient has been at ~ 4000 mg daily for many days Change gabapentin 800 mg PO q 12 hours, 2372-7456 - improve medication that patient indicates helps with phantom limb pain and facilitate the larger dose being given just before bedtime. Gabapentin 600 mg PO q 12 hours, 5760-2881 - maintain a 400 mg/day dose increase [...] MSN, RN-BC Clinical Nurse Coordinator Pain Management [phone] Team pager [phone] * Hugh Salinas MD - 01/03/2018 10:37 [...] non-insulin dependent diabetes mellitus who presented to [facility] on 12/13/17 for scheduled left hemipelvectomy [...] 20,000 Units/ sodium bicarbonate 650 mg(#) PRN (Engraver Set Up Operator from Rx) Review of Systems: A 14 [...] 0510) POC Glucose (Download): (!) 119 (01/03/18 8391) Radiology and other Diagnostics Review: Pertinent radiology reviewed. Hugh Salinas MD Pager [phone] * Adrienne Carlos, RD - 01/03/2018 8:59 [...] 12/14. Pt reported she was eating well SEPTIC TANK SERVICER and has had a stable weight. Pt's weight wentdown 28# or 12% s/p removal of her leg, 203# (12/18). Latest weight shows a 14# increase in 9 days, likely due to fluid. Pt had continued to havedecreased PO intake, with average PO intake of 600 kcals, 33 gm per day per calorie count. Yet Per fellow RD, all of Pt's intake of [place] shakes may not be included in the [...] encourage protein shakes between meals, made with [place] Breakfast Essentials (NO SUGAR ADDED), skim milk, [...] nutrition care. Adrienne Carlos RD, LD, [facility] *[phone] * Feli Winkler MD - 01/03/2018 [...] -Colorectal surgery will sign off, please page #[phone] with further questions -Follow-up with Dr. Mccollum [...] Net 308 ml Feli Winkler MD Pager [phone] * César Davis MD - 01/03/2018 6:22 [...] instead of SNF, would prefer [facility], DIVISION LEADER psych and psychology consults for coping, depression - appreciate assistance -Endocrine consult for blood sugar management - appreciate recs -ID consult - Zosyn, micafungin -Nutrition following for optimization - TPN (continue for now), tube feeds -General Surgery consult - colostomy 12/30 Dispo: Continue inpatient care César Davis MD [id number] * Harry Alfonso - 01/02/2018 3:37 PM [...] with stress hyperglycemia A1c 6.5 , controlled SEPTIC TANK SERVICER regimen: Metformin thousand milligrams twice a day, jardiance 25 mg daily Hypoglycemic episodes on this regimen: None and not checking blood sugars at home Follows up with for diabetes management: Primary care physician at [facility] Diabetic-complications assessment: Retinopathy: None Peripheral neuropathy: Yes on treatment Autonomic neuropathy: None Nephropathy: None Macrovascular complications: None Risk factor assessment: Last lipid profile - None on file On ACEi/ARB: Yes On Statin: yes 2. Hypothyroidism SEPTIC TANK SERVICER 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 daily TSH 2.1 [...] 20,000 Units/ sodium bicarbonate 650 mg(#) PRN (Engraver Set Up Operator from Rx) Physical Examination Vital Signs: Last [...] 09:45 AM No results found for: FREET3, [id number], THYBINDGLB Pertinent radiology images viewed. Impression: Marco [...] PROGRESS NOTE Patient Name: Beata Kaiser Room/Bed: [place]2718/01 Admitting Diagnosis: Pelvic mass [R19.00] Pelvic mass [...] Pt requires extra time and cues for [id number]-zy-[id number] process. Limited by pain and weakness. Assist [...] non-insulin dependent diabetes mellitus who presented to [facility] on 12/13/17 for scheduled left hemipelvectomy [...] Net 341 ml Fareed Holcomb MD Pager [phone] Associated attestation - Manny Barrios MD - [...] instead of SNF, would prefer [facility], DIVISION LEADER psych and psychology consults for coping, depression - appreciate assistance -Endocrine consult for blood sugar management - appreciate recs -ID consult - Zosyn, micafungin -Nutrition following for optimization - TPN (continue for now), tube feeds -General Surgery consult - colostomy 12/30 Dispo: Continue inpatient care César Davis MD [id number] * Amanda Juares - 01/01/2018 4:29 PM CDT BS at 1330 was 386, recheck BS at 1610 was 354. MD called, recommended calling endocrinology. Spoke with architecture drafter, per today's progress note insulin changes ordered [...] Net 949 ml Feli Winkler MD Pager [phone] Associated attestation - Manny Barrios MD - [...] with stress hyperglycemia A1c 6.5 , controlled SEPTIC TANK SERVICER regimen: Metformin thousand milligrams twice a day, jardiance 25 mg daily Hypoglycemic episodes on this regimen: None and not checking blood sugars at home Follows up with for diabetes management: Primary care physician at [facility] Diabetic-complications assessment: Retinopathy: None Peripheral neuropathy: Yes on treatment Autonomic neuropathy: None Nephropathy: None Macrovascular complications: None Risk factor assessment: Last lipid profile - None on file On ACEi/ARB: Yes On Statin: yes 2. Hypothyroidism SEPTIC TANK SERVICER 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 daily TSH 2.1 [...] 20,000 Units/ sodium bicarbonate 650 mg(#) PRN (Engraver Set Up Operator from Rx) Physical Examination Vital Signs: Last [...] 04:38 AM No results found for: FREET3, [id number], THYBINDGLB Pertinent radiology images viewed. Impression: Marco [...] instead of SNF, would prefer [facility], DIVISION LEADER psych and psychology consults for coping, depression [...] non-insulin dependent diabetes mellitus who presented to [facility] on 12/13/17 for scheduled left hemipelvectomy [...] 20,000 Units/ sodium bicarbonate 650 mg(#) PRN (Engraver Set Up Operator from Rx) Objective: Vital Signs: Last Filed [...] 20,000 Units/ sodium bicarbonate 650 mg(#) PRN (Engraver Set Up Operator from Rx) Physical Examination Vital Signs: Last [...] Microbiology data reviewed. Chari Pedro DO Pager [phone] ID fellow * Kerline Kruger RN - [...] on the patient. 1703: Paged Med consults #[phone] Spoke to team about EKG results and [...] Assessment? Except 12/30/2017 2:45 PM Stoma Assessment Flasher 12/31/2017 12:00 PM Drainage Description Sanguineous;Brown 12/30/2017 [...] BSN Wound Ostomy Nursing Consult Service Office: [phone] Pager: [phone] After hours Wound/Ostomy team pager : [phone] * Adair Colin MD - 12/31/2017 12:05 [...] between 8am and 3pm on weekends at [phone]. Otherwise, page the oral and maxillofacial surgery resident alteration worker. Subjective: Beata Kaiser is seen for routine [...] 20,000 Units/ sodium bicarbonate 650 mg(#) PRN (Engraver Set Up Operator from Rx) Mental Status Exam: General/Constitutional: cooperative, [...] and between 8am and 3pm on weekends [phone]. Otherwise, page the oral and maxillofacial surgery resident alteration worker. Staff name: Hugh Quintana MD Date: 01/01/2018 [...] Net 2755 ml Evelyn Barrow DO Pager [phone] * Herminia Gant OTA - 12/31/2017 11:30 [...] AM CDT Inpatient Pain Management Nurses - [facility] Nursing Practice - Follow -Up Discussed patient with Dr. Mina Davis (primary team). Primary team is responsible for entering orders. Suggested Plan for the Day: Lidocaine patch x2 cut to fit placed beside surgical incision and around ostomy bag. Discontinue fentanyl CORE MEASURES ABSTRACTOR - patient stating that she is not [...] Regimen, OME: Used 580 mcg in fentanyl CORE MEASURES ABSTRACTOR ~ 58 mg Used 1 dose of morphine IV @ 2 mg ~ 6 mg Used 3 doses of IV fentanyl @ 50 vbf=407 mcg ~ 15 mg Used 1 dose [...] 25 mg at 12/19/17 2139 fentaNYL (SUBLIMAZE) CORE MEASURES ABSTRACTOR 550 mcg/ NS 55 mL infusion syr (std conc)( premade), , Intravenous, CORE MEASURES ABSTRACTOR, César Davis MD fentaNYL citrate PF (SUBLIMAZE) [...] 1 capsule, 1 capsule, Feeding Tube, PRN (Engraver Set Up Operator from Rx), Adrienne Zarate MD pantoprazole DR [...] hours as needed for pain. Discontinue fentanyl CORE MEASURES ABSTRACTOR. Suggest allowing hydromorphone 0.5-1 mg IV every 4 hours as needed for breakthrough pain not relieved with oral medications or NPO or vomiting for ONLY 24 hours, then taper to every 6 hours PRN breakthrough pain not relieved with oral medications or NPO or vomiting. Please call with questions/concerns. Jasper Betts, MSN, RN- Clinical Nurse Coordinator Pain Management [phone] Team pager [phone] * Adrienne Carlos RD - 12/31/2017 9:46 [...] (TPN) 65 mL/hr at 12/30/172027 fentaNYL (SUBLIMAZE) CORE MEASURES ABSTRACTOR 550 mcg/ NS 55 mL infusion syr (std conc)(premade ) lactated ringers infusion Stopped (12/30/17 1440) PRN and Respiratory Meds:alum/mag hydroxide/simeth Q6H PRN, calcium carbonate Q4H PRN, diazePAM Q6H PRN, diphenhydrAMINE Q6H PRN OR [DISCONTINUED] diphenhydrAMINE Q6H PRN, fentaNYL citrate PF Q1H PRN, naloxone PRN, ondansetron (ZOFRAN) IV Q6H PRN, oxyCODONE Q3H PRN, pancrelipase 20,000 Units/ sodium bicarbonate 650 mg(#) PRN (Engraver Set Up Operator from Rx) Electrolyte Treatments: Nothing besides LR [...] 12/14. Pt reported she was eating well SEPTIC TANK SERVICER and has had a stable weight. Pt's [...] fellow RD, all of Pt's intake of [place] shakes may not be included in the [...] + Protein shakes between meals, made with [place] Breakfast Essentials (NO SUGAR ADDED), skim milk, [...] are desired. NSS is available by pager [phone] for assistance. Adrienne Carlos, RD, LD, [facility] *[phone] * César Davis MD - 12/31/2017 8:01 [...] instead of SNF, would prefer [facility], DIVISION LEADER psych and psychology consults for coping, depression - appreciate assistance -IM consult for hyponatremia and diabetes management- appreciate recs -ID consult for persistent leukocytosis and fevers - Zosyn, micafungin -Nutrition following for optimization - TPN -General Surgery consult - colostomy 12/30 Dispo: Continue inpatient care César Davis MD [phone] * Kerline Kruger RN - 12/31/2017 8:00 [...] No orders reiceved. Surgery resident, Dr Barrow #[phone] paged. Orders received. Primary RN notified and [...] Dr. Davis gave orders for a Fentanyl CORE MEASURES ABSTRACTOR with the settings of 06/25//. Orders in [...] Units/ sodium bicarbonate 650 mg (#) PRN (Engraver Set Up Operator from Rx) Physical Examination Vital Signs: Last [...] Microbiology data reviewed. Chari Pedro, DO Pager [phone] ID fellow * Kerline Kruger, RN - [...] as indicated post-operatively. Therapist: Lexus Shirley OTR/L [id number] Date: 12/30/2017 * Cassandra Villatoro - 12/30/2017 [...] 20,000 Units/ sodium bicarbonate 650 mg(#) PRN (Engraver Set Up Operator from Rx) Electrolyte Treatments: None noted yesterday [...] 12/14. Pt reported she was eating well SEPTIC TANK SERVICER and has had a stable weight. Pt's [...] fellow RD, all of Pt's intake of [place] shakes may not be included in the [...] of goal) Nneka Thompson MS, RD, LD, [facility] Pager [phone] Office [phone] * Aimee Mccollum DO - 12/30/2017 8:22 [...] 20,000 Units/ sodium bicarbonate 650 mg(#) PRN (Engraver Set Up Operator from Rx) Vital Signs: Last Filed Vital [...] 24 hours): FSBS (Manual): (!) 160 (12/30/17 2736) Glucose: (!) 165 (12/30/17 9701) POC Glucose (Download): (!) 160 (12/30/17 7351) Aimee Mccollum DO Pager [phone] * César Davis MD - 12/30/2017 7:54 [...] instead of SNF, would prefer [facility] -Psych, DIVISION LEADER psych and psychology consults for coping, depression - appreciate assistance -IM consult for hyponatremia and diabetes management- appreciate recs -ID consult for persistent leukocytosis and fevers - Radha, appreciate recs -Nutrition following for optimization- nocturnal tube feeds -General Surgery consult- plan for colostomy 12/30 Dispo: NPO for colostomy today César Davis MD [phone] * Grace Smith, SANJAY - 12/30/2017 3:17 AM CDT Pt bowels are not clear. RN paged Onc to see what step to take next to get pt to clear bowels. Onc alteration worker stated that there was no further action [...] as part of her plan of director critical care: Lynn Bruce Date: 12/29/2017 * Chari Moon [...] Cognitive Status: Alert;Oriented;Cooperative Persons Present: Daughter;Spouse (Supervising SEPTIC TANK SERVICER) Pain: Patient complains of pain Pain Location: [...] Units/ sodium bicarbonate 650 mg (#) PRN (Engraver Set Up Operator from Rx) Physical Examination Vital Signs: Last [...] PROGRESS NOTE Patient Name: Beata Kaiser Room/Bed: [place] [address] Admitting Diagnosis: Pelvic mass [R19.00] Pelvic mass [...] and Cooperative to Participate Persons Present: Daughter (clinical rehab specialist) Home Living Type of Home: House Home Layout: Performs ADL'S on One Level (2 steps to enter) Bathroom Shower / Tub: Tub/Shower Unit Prior Function Level Of [place]: Independent with ADLs and functional transfers Lives [...] mobility, Dressing, Bathing, Toileting Therapist: SACHA Nath/Tapan [id number] Date: 12/29/2017 * Adrienne Zarate MD - [...] instead of SNF, would prefer [facility] -Psych, DIVISION LEADER psych and psychology consults for coping, depression - appreciate assistance -IM consult for hyponatremia and diabetes management- appreciate recs -ID consult for persistent leukocytosis and fevers - Radha, appreciate recs -Nutrition following for optimization- nocturnal tube feeds -General Surgery consult- plan for colostomy 12/30 Dispo: Continue inpatient care, NPO at [place] and hold tube feeds Adrienne Zarate MD [phone] * Adair Colin MD - 12/28/2017 6:31 [...] between 8am and 3pm on weekends at [phone]. Otherwise, page the oral and maxillofacial surgery resident alteration worker. Subjective: Beata Kaiser is seen for routine [...] 000 Units/ sodium bicarbonate 650 mg(#) PRN (Engraver Set Up Operator from Rx) Mental Status Exam: General/Constitutional: cooperative, [...] and between 8am and 3pm on weekends [phone]. Otherwise, page the oral and maxillofacial surgery resident alteration worker. Staff name: Hugh Quintana MD Date: 12/29/2017 [...] Units/ sodium bicarbonate 650 mg (#) PRN (Engraver Set Up Operator from Rx) Physical Examination Vital Signs: Last [...] / Cognitive Status: Alert;Cooperative Persons Present: (Spervising SEPTIC TANK SERVICER) Pain: Patient complains of pain Pain Location: [...] intervention as indicated. Therapist: Lexus Shirley, OTR/L [id number] Date: 12/28/2017 * Nani Mcelroy RN - [...] BSN Wound Ostomy Nursing Consult Service Office: [phone] Pager: [phone] After hours Wound/Ostomy team pager : [phone] * Dalia Bullock MD - 12/28/2017 9:38 [...] non-insulin dependent diabetes mellitus who presented to [facility] on 12/13/17 for scheduled left hemipelvectomy [...] Dalia Bullock MD PGY-3 Internal Medicine Pager [phone] Subjective Beata Kaiser is a 52 y.o. [...] 20,000 Units/ sodium bicarbonate 650 mg(#) PRN (Engraver Set Up Operator from Rx) Objective: Vital Signs: Last Filed [...] 0400) POC Glucose (Download): (!) 187 (12/28/17 0043) Radiology and other Diagnostics Review: Pertinent radiology [...] Hgb 8.2 -Rehab consult- appreciate recs -Psych, DIVISION LEADER psych and psychology consults for coping, depression [...] Dispo: Continue inpatient care Adrienne Zarate MD [phone] * Anita Hines RN - 12/28/2017 12:16 [...] a 52 y.o. female admitted to [facility] on 12/13/2017 with the following issues: [...] acute inpatient rehabilitation. Other recommendations Impaired gait/mobility: SEPTIC TANK SERVICER pt was independent Currently requiring total assist Will benefit from continued work with PT to address mobility deficits Impaired ADL: SEPTIC TANK SERVICER pt was independent Currently requiring total assist Will benefit from ongoing OT to address functional deficits Neuropathic pain Agree with aggressive gabapentin regimen as ordered. Pt will also benefit from de-sensitization techniques as instructed by PT and to be performed by self as able. Hospital Course: Beata Kaiser is a 52 yo F who presented to [facility] on 12/13/17 for scheduled left hemipelvectomy [...] management due to ongoing pain issues since CORE MEASURES ABSTRACTOR removed. Pt has been working with PT/OT [...] set ( turned to R with wedge). BUILDING EQUIPMENT OPERATOR COGNITIVE EVALUATION SUMMARY PRAGMATICS: BEHAVIOR: AUDITORY COMPREHENSION: [...] 20,000 Units/ sodium bicarbonate 650 mg(#) PRN (Engraver Set Up Operator from Rx) Objective Vital Signs: Last Filed [...] non-insulin dependent diabetes mellitus who presented to [facility] on 12/13/17 for scheduled left hemipelvectomy [...] Dalia Bullock MD PGY-3 Internal Medicine Pager [phone] Subjective Beata Kaiser is a 52 y.o. [...] / Cognitive Status: Alert;Cooperative Persons Present: (Supervising SEPTIC TANK SERVICER) Pain: Patient complains of pain Pain Location: [...] throughout the physical therapy session. * Lynn Barrrea - 12/27/2017 2:51 PM CDT PHYSICAL THERAPY MOBILITY NOTE Attempt x1 (3719) Patient was assigned for activity with the mobility aide by the supervising therapist. Patient declined to participate despite encouragement. Patient reports that she is resting comfortably at this time and requests to continue resting. Patient is open to this biomedical electronics technician returning for mobility session later on this date if time allows. Nursing notified. Will revisit this patient as able. Attempt x2 (8906): Patient was assigned for activity with the [...] Diet Order: Six Small Meals Oral Supplement: [place] Breakfast Essentials No Sugar Added, Protein Powder [...] have any lunch. Dinner was only an [place] muffin and grapes. She reports her appetite [...] Hours Status: Not met Emma See RD #[id number]. * Adrienne Zarate MD - 12/27/2017 12:43 [...] Hgb 8.1 -Rehab consult- appreciate recs -Psych, DIVISION LEADER psych and psychology consults for coping, depression [...] Dispo: Continue inpatient care Adrienne Zarate MD [phone] Associated attestation - Tamiko Luther MD - [...] collection is noted. Chari Pedro DO Pager [phone] Infectious Diseases Fellow * Fareed Holcomb MD [...] warm, dry Fareed Holcomb MD Personal Pager: [phone] Team Pager: # [phone] * Marlene Ramirez - 12/27/2017 10:15 AM CDT ORTHOTICS/PROSTHETICS Consult Note: NAME: Beata Kaiser ADMISSION DATE: admitted to hospital : 1965 AGE: 52 y.o. 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 Description of condition/injury, including services:Amputations Size: 1x [...] PROGRESS NOTE Patient Name: Beata Kaiser Room/Bed: [place] [address] Admitting Diagnosis: Pelvic mass [R19.00] Pelvic mass [...] Willing and Cooperative to Participate Persons Present: (workplace rehabilitation officer) Home Living Type of Home: House Home Layout: Performs ADL'S on One Level (2 steps to enter) Bathroom Shower / Tub: Tub/Shower Unit Prior Function Level Of [place]: Independent with ADLs and functional transfers Lives [...] mobility, Dressing, Bathing, Toileting Therapist: SACHA Nath/Tapan 4976 Date: 12/27/2017 * Macho Nolasco, PHARMD - [...] non-insulin dependent diabetes mellitus who presented to [facility] on 12/13/17 for scheduled left hemipelvectomy [...] 0401) POC Glucose (Download): (!) 215 (12/26/17 2266) Radiology and other Diagnostics Review: Pertinent radiology [...] Cognitive Status: Alert;Cooperative;Oriented;To Person;To Place Persons Present: Extension Service Specialist In Charge Pain: Patient complains of pain;/10;Before activity Pain [...] PROGRESS NOTE Patient Name: Beata Kaiser Room/Bed: [place] [address] Admitting Diagnosis: Pelvic mass [R19.00] Pelvic mass [...] Tub: Tub/Shower Unit Prior Function Level Of [place]: Independent with ADLs and functional transfers Lives [...] Setting Equipment Recommendations: Drop arm BSC, w/c, high school drafting teacher, slide board Additional Information: Recommend ongoing assistance [...] Hgb 7.9 -Rehab consult- appreciate recs -Psych, DIVISION LEADER psych and psychology consults for coping, depression [...] Continue inpatient care César Davis MD Pager [phone] * Hood Tellez MD - 12/25/2017 6:49 [...] non-insulin dependent diabetes mellitus who presented to [facility] on 12/13/17 for scheduled left hemipelvectomy [...] 0442) POC Glucose (Download): (!) 292 (12/25/17 6763) Radiology and other Diagnostics Review: Pertinent radiology [...] 8.3 today -Rehab consult- appreciate recs -Psych, DIVISION LEADER psych and psychology consults for coping, depression- appreciate assistance -IM consult for hyponatremia- appreciate recs, improving -ID consult for persistent leukocytosis and fevers- Vanc/zosyn, appreciate recs -Nutrition following for optimization; calorie count performed yesterday; request Nutrition evaluation for possible feeding tube placement -CT pelvis ordered to evaluate fluid collection Dispo: Continue inpatient care César Davis MD Pager [phone] * Luis Sargent MD - 12/24/2017 5:29 [...] non-insulin dependent diabetes mellitus who presented to [facility] on 12/13/17 for scheduled left hemipelvectomy [...] Screen NEG Electronic Crossmatch YES Unit Number [id number] Blood Component Type RBC,ADSOL,LEUKO REDUCED Unit Division [...] Pertinent radiology reviewed. Luis Sargent MD Pager [phone] * Italia Ramos RN - 12/24/2017 3:33 PM CDT I have reviewed the notes, assessments, and/or procedures performed by Emely Paredes RN and concur with her documentation unless otherwise noted. * Italia Ramso RN - 12/24/2017 2:38 PM CDT 09/20 [...] PROGRESS NOTE Patient Name: Beata Kaiser Room/Bed: [place] [address] Admitting Diagnosis: Pelvic mass [R19.00] Pelvic mass [...] and Cooperative to Participate Persons Present: RN (appraiser personal property, clinical rehab specialist) Home Living Type of Home: House Home Layout: Performs ADL'S on One Level (2 steps to enter) Bathroom Shower / Tub: Tub/Shower Unit Prior Function Level Of [place]: Independent with ADLs and functional transfers Lives [...] Pt supine at OT departure with staff veterinarian at bedside. Activity Tolerance Endurance: 2/5 Tolerates [...] PICC order and await further consult. * Adirenne Zarate MD - 12/24/2017 8:57 AM CDT [...] unit today -Rehab consult- appreciate recs -Psych, DIVISION LEADER psych and psychology consults for coping, depression- appreciate assistance -IM consult for hyponatremia- appreciate recs -ID consult for persistent leukocytosis and fevers- Vanc/zosyn, appreciate recs -Nutrition following for optimization -Calorie count today -PICC line ordered Dispo: continue inpatient care Adrienne Zarate MD Pager [phone] * Nani Lynch DO - 12/24/2017 7:44 [...] Lynch DO Division of Infectious Diseases Pager [phone] Dr. Isabel will round again on the patient on Wednesday. Please feel free to call the ID fellow alteration worker at pager [phone] if there are any new issues or [...] acute cardiopulmonary abnormality. Dominique Nelson MD Pager [phone] Infectious Diseases Fellow * Mauro Xiong - [...] non-insulin dependent diabetes mellitus who presented to [facility] on 12/13/17 for scheduled left hemipelvectomy [...] needs further assistance, the service should page [phone] (24 hours a day/7 days a week) [...] Pertinent radiology reviewed. Luis Sargent MD Pager [phone] * AlexKaylie - 12/23/2017 3:24 PM CDT [...] and adjust therapy as needed. Kaylie Johnson [facility] 12/23/2017 * Nani Lynch DO [...] Lynch DO Division of Infectious Diseases Pager [phone] Interval History Fever up to 38.9 No [...] lung base, compatible with atelectasis and/or pneumonia. Dmoinique Nelson MD Pager [phone] Infectious Diseases Fellow * Herminia Gant OTA [...] Tub: Tub/Shower Unit Prior Function Level Of [place]: Independent with ADLs and functional transfers Lives [...] OT Discharge Recommendations: Inpatient Setting Equipment Recommendations: [facility] [place] Additional Information: Next treatment: cardiac chair ordered [...] monitor -Rehab consult- appreciate recs -Psych and DIVISION LEADER psych consults for coping, depression- appreciate assistance -IM consult for hyponatremia- appreciate recs -ID consult for persistent leukocytosis and fevers- jerseysyn, appreciate recs -Nutrition following for optimization Dispo: continue inpatient care Adrienne Zarate MD Pager [phone] * Kerline Kruger RN - 12/23/2017 10:[address] Zarate notified about patients temperature of 38.9 C (102 F) and patients lethargy. Patient is unable to carry on conversation and barely able to answer questions before drifting off to sleep. Dr. Zarate stated that she would come to see the patient shortly. Nothing further at this time. * Ivette Wade APRN-DIVISION LEADER - 12/23/2017 9:35 AM CDT Patient too tired to engage in conversation this morning. Will continue to try to find her and talk about her emotional recovery from her new body image. She is a very self reliant and resilient woman by history. Please use the sleep bundle to assure her at leat 4 hours of uninterrupted sleep. Ivette Wade [facility]- [phone] * Mauro Xiong - 12/22/2017 [...] non-insulin dependent diabetes mellitus who presented to [facility] on 12/13/17 for scheduled left hemipelvectomy [...] needs further assistance, the service should page [phone] (24 hours a day/7 days a week) [...] (Last 24 hours) Glucose: (!) 142 (12/22/17 8725) POC Glucose (Download): (!) 227 (12/22/17 8586) Radiology and other Diagnostics Review: Pertinent radiology reviewed. Luis Sargent MD Pager [phone] * Kendrick Varma RN - 12/22/2017 4:58 [...] / Cognitive Status: Alert;Oriented;Cooperative;Follows Commands Persons Present: Extension Service Specialist In Charge;Nursing Staff Pain: Patient complains of pain;2/10 (varies [...] Current Oral Intake: Improving Estimated Calorie Needs: 9597-9133 (27-30 kcal/kg desired wt of 55.3kg.) Estimated Protein Needs: 100 (1.8 g/kg desired wt of 55.3kg.) Oral Diet Order: Regular Beata Kaiser is a 52 y.o. 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 Pt reported she was eating well SEPTIC TANK SERVICER and has had a stable weight. (Pt's weight is now down 28# or 12% s/p removal of her leg). Pt appears obese.. Pt reports decreased po intake, no GI concerns. She has somewhat of a flat affect. I was able to engaged her in education regarding her high protein needs. I also encouraged and provided her with a [place] high protein shake which she liked and was sipping on at time of my visit (cleared with RN first / pt is diabetic and on a dluid restriction). She reports she is familiar with diabetic diet and has no questions. RD to continue to follow to ensure adequate protein and po intake. Recommendation: Continue [phone] Consistent Carb Diet OR if bs's elevated, [...] Frame: Within 72 Hours Emma See, KAYA #[phone]. * Shilpi Camejo RN - 12/22/2017 12:39 PM CDT Pt has had several loose stools today. C diff screen negative as of 12/20. Spoke with Dr Zarate for possible imodium orders. Will hold off until ID sees her for rounds * Ivette Wade, ESCROW REPRESENTATIVE-DIVISION LEADER - 12/22/2017 10:05 AM CDT Patient was [...] help her have better sleep. Ivette Wade [facility]- [phone] * Adrienne Zarate MD - [...] continue to monitor -Rehab consult- appreciate recs -DIVISION LEADER psych consult for coping, depression- appreciate assistance -IM consult for hyponatremia- appreciate recs -Nutrition following for optimization Dispo: continue inpatient care Adrienne Zarate MD Pager [phone] * Ivette Wade APRN-DIVISION LEADER - 12/21/2017 2:30 PM CDT Patient resting. Spoke with her father. Will return in AM. Ivette Wade [facility]- [phone] * Adrienne Zarate MD - [...] continue to monitor -Rehab consult- appreciate recs -DIVISION LEADER psych consult for coping, depression- appreciate assistance -IM consult for hyponatremia- appreciate recs Dispo: continue inpatient care Adrienne Zarate MD Pager [phone] * Herminia Gant OTA - 12/21/2017 1:23 [...] Tub: Tub/Shower Unit Prior Function Level Of [place]: Independent with ADLs and functional transfers Lives [...] Current Oral Intake: Improving Estimated Calorie Needs: 5704-9790 (30-35 kcals/kg per DBW 55.3kg) Estimated Protein Needs: 83-111 (1.5-2 gm/kg per DBW 55.3kg) Oral Diet Order: Regular Beata Kaiser is a 52 y.o. 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 Pt reported she was eating well SEPTIC TANK SERVICER and has had a stable weight. (Pt's [...] tolerance. Recommendation: Recommend switching to Diabetic Diet 2259-3680 kcals due to Pt's h/o DM and [...] Hours Nneka Thompson MS, RD, LD, [facility] Pager [phone] Office [phone] * Annette Ling, RN - 12/20/2017 3:55 PM CDT When the patient was cleaned up, the PNC catheter was dislodged and laying in the bed. PNC had not been infusing since yesterday in the SICU. * Keiko Cao - 12/20/2017 3:28 PM CDT Unit Executive Chef Assistant checked chart for note taking regarding Unit assignments. The spiritual care team is available as needed, 12/04, through the campus switchboard ([phone]). For immediate response, please page [phone]. For a response within 24 hours, please submit an order in O2 for a librarian special collections consult or call the administrative voicemail at [phone]. Respectfully Submitted, . Keiko Cao Equipment Operator [employer] Extension [phone] * Ruth Abbott, PT - 12/20/2017 1:02 PM CDT PHYSICAL THERAPY NOTE Attempted to see patient this afternoon at scheduled time with biomedical electronics technician. Patient just transferred off of SICU [...] 1200: Report received from Nichole Mendieta RN. 4135: Pt arrived to unit. * Melba Forbes M.Div, [facility] - 12/20/2017 11:30 AM CDT Executive Chef Assistant Note: Admit Date: 12/13/2017 Reason for Visit: Executive Chef Assistant met with patient per her request for a librarian special collections visit. Executive Chef Assistant introduced Spiritual Care and offered active listening as pt shared about her health issues and family. Shantell/Religious: Pt confirmed that she is Voodoo. Pt has recently gone to [employer] [facility] in [place], [place] with some co-workers. Pt states this rastafarian is "more Jainism" bus she likes it saying the "publicity expert provides a good message." Source of Purpose/Meaning: Pt's family appears to be important to her. One daughter, Lynn, was in pt's room and pt has another daughter and son plus her spouse. 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 Pt is not sure that she will be able to keep that same job, yet is hoping to be able to stay on doing more desk work. Executive Chef Assistant did not catch the name of her [...] support from her community and work. Interventions/Plan: Executive Chef Assistant provided supportive presence as pt shared about her situation. Pt requested prayer which librarian special collections provided. Pt would appreciate follow-up visits and is not sure if she will go to another unit and later rehab as she continues to recover. Executive Chef Assistant also spoke individually to daughter Lynn and learned that she is with her first child. Pt has other grandchildren (ages 8 & 4) so this will be her third grandchild. Family is traveling back and forth from [place] to support pt. The spiritual care team is available as needed, 12/04, through the [place] switchboard ([phone]). For immediate response, please page [phone]. For a response within 24 hours, please submit an order in O2 for a librarian special collections consult or call the administrative voicemail at [phone]. Please page or use consult order if patient or family requests visit. Date/Time: User: Pager: [phone] 12/20/2017 1:11 PM Melba Forbes M.Div, [facility] PCU 5 PCU * Herminia Gant [...] Tub: Tub/Shower Unit Prior Function Level Of [place]: Independent with ADLs and functional transfers Lives [...] continue to monitor -Rehab consult- appreciate recs -DIVISION LEADER psych consult for coping, depression- appreciate assistance Dispo: continue inpatient care, transfer to floor Adrienne Zarate MD Pager [phone] * Ruth Abbott, PT - 12/19/2017 1:33 [...] / Cognitive Status: Alert;Oriented;Cooperative;Follows Commands Persons Present: Extension Service Specialist In Charge;Daughter Pain: Patient complains of pain;Before activity;During activity;Patient does not rate pain Pain Location: Left;Hip Pain Interventions: Patient pre-medicated;Patient agrees to participate in therapy with modifications to session;Patient encouraged to use CORE MEASURES ABSTRACTOR/PNC (IV) Precautions: NGT, 1 MANNY drain L [...] 52 y.o. female : 1965 MRN# : [id number] PROCEDURE: Procedure(s) with comments: JAMIL PELVECTOMY - [...] us with any questions. Anesthesia Pain pager: [phone] Allergies Allergen Reactions Cephalexin SEE COMMENTS Face [...] removed, tolerating CLD. Issues with pain after CORE MEASURES ABSTRACTOR removed. Continues to have flatus. +BM. Objective: [...] to floor tomorrow Kristie Cruz MD Pager [phone] * Chris Badillo MD - 12/19/2017 6:31 [...] 52 y.o. female : 1965 MRN# : [id number] PROCEDURE: Procedure(s) with comments: JAMIL PELVECTOMY - [...] transition to oral analgesics Anesthesia Pain pager: [phone] Allergies Allergen Reactions Cephalexin SEE COMMENTS Face [...] 20 mmol Intravenous ONCE Continuous Infusions: bupivacaine CORE MEASURES ABSTRACTOR 0.125% in NS 50mL epidural infusion syr [...] continue ICU care Kristie Cruz MD Pager [phone] * Harry Moore MD - 12/18/2017 6:47 [...] - 100 MG/DL Final Medications: gtts bupivacaine CORE MEASURES ABSTRACTOR 0.125% in NS 50mL epidural infusion syr [...] ASSESSMENT NOTE Patient Name: Beata Kaiser Room/Bed: [place] [address] Admitting Diagnosis: Pelvic mass [R19.00] Pelvic mass [...] Tub: Tub/Shower Unit Prior Function Level Of [place]: Independent with ADLs and functional transfers Lives [...] address most appropriate level of rehabilitation placement ([phone]). Therapist: Tanya Spain OT Date: 12/17/2017 * [...] with modifications to session;Patient encouraged to use CORE MEASURES ABSTRACTOR/PNC (IV) Precautions: Epidural,NGT, 1 MANNY drain L [...] Current Oral Intake: NPO Estimated Calorie Needs: 8550-7295 (30-35 kcals/kg per DBW 65.8 kg ) [...] am. Pt reports she was eating well SEPTIC TANK SERVICER and has had a stable weight. EMR [...] Hours Nneka Thompson MS, RD, LD, [facility] Pager [phone] Office [phone] * Gagan Dunlap, DO - 12/17/2017 11:57 AM CDT Formatting of this note may be different from the original. Anesthesiology Acute Pain Service Date of Service: 12/17/2017 Name: Beata Kaiser is a 52 y.o. female : 1965 MRN# : [id number] PROCEDURE: Procedure(s) with comments: JAMIL PELVECTOMY - CASE LENGTH 5 HOURS CYSTORRHAPHY AND BLADDER NECK REPAIR, CYSTOSCOPY, LEFT ILIAC EXPOSURE POD #: 3, PCEA day 2 ANALGESIA TECHNIQUE Epidural catheter: Bupi 0.125% ADJUNCT ANALGESIA MEDICATIONS dilaudid acetaminophen PO gabapentin TREATMENT PLAN Continue use of epidural for pain management and discontinue CORE MEASURES ABSTRACTOR and convert to dilaudid PRN. Bolused epidural with 1% lidocaine and increased concentration now that hemodynamically stable. Anesthesia Pain pager: [phone] Allergies Allergen Reactions Cephalexin SEE COMMENTS Face [...] tube QDAY before breakfast Continuous Infusions: bupivacaine CORE MEASURES ABSTRACTOR 0.125% in NS 50mL epidural infusion syr [...] improved pain control. * Melba Forbes M.Div [facility] - 12/17/2017 11:30 AM CDT Executive Chef Assistant Note: Admit Date: 12/13/2017 Executive Chef Assistant attempted to meet with patient, but pt was sleeping and did not awaken to her name. No family members were present. Please page or use consult order if patient or family requests visit. Executive Chef Assistant will continue to follow. Date/Time: User: Pager: [phone] 12/17/2017 1:45 PM Melba Forbes M.Div [facility] PCU 2 PCU * Adrienne Zarate [...] continue ICU care Adrienne Zarate MD Pager [phone] * Casa George MD - 12/17/2017 8:43 [...] - 100 MG/DL Final Medications: gtts bupivacaine CORE MEASURES ABSTRACTOR 0.0625% in NS 50mL epidural infusion syr [...] 52 y.o. female : 1965 MRN# : [id number] PROCEDURE: Procedure(s) with comments: JAMIL PELVECTOMY - CASE LENGTH 5 HOURS CYSTORRHAPHY AND BLADDER NECK REPAIR, CYSTOSCOPY, LEFT ILIAC EXPOSURE POD #: 2, PCEA day 1 ANALGESIA TECHNIQUE Epidural catheter: bupivacaine 0.0625% ADJUNCT ANALGESIA MEDICATIONS dilaudid acetaminophen PO gabapentin TREATMENT PLAN Continue use of epidural for pain management and discontinue CORE MEASURES ABSTRACTOR and convert to dilaudid PRN Anesthesia Pain pager: [phone] Allergies Allergen Reactions Cephalexin SEE COMMENTS Face [...] SOLP (Cabinet Override) NOW Continuous Infusions: bupivacaine CORE MEASURES ABSTRACTOR 0.0625% in NS 50mL epidural infusion syr [...] Pain much better controlled with epidural and CORE MEASURES ABSTRACTOR. Complains of a sore throat and some [...] continue ICU care Adrienne Zarate MD Pager [phone] * Valerie Couch MD - 12/16/2017 6:52 [...] on 2L Pulmonary toilet, encourage IS GI/FEN CRM-vnmmhwwczotf-Rln 2.9, ARBF NGT: 1L pepcid Zofran prn [...] - 100 MG/DL Final Medications: gtts bupivacaine CORE MEASURES ABSTRACTOR 0.0625% in NS 50mL epidural infusion syr HYDROmorphone (DILAUDID) CORE MEASURES ABSTRACTOR 11 mg/NS 55mL infusion syr (std conc)(premade [...] epidural -- PNC -- gabapentin -- dilaudid CORE MEASURES ABSTRACTOR depression -- Wellbutrin -- buspar CV Mildly [...] - 100 MG/DL Final Medications: gtts bupivacaine CORE MEASURES ABSTRACTOR 0.0625% in NS 50mL epidural infusion syr HYDROmorphone (DILAUDID) CORE MEASURES ABSTRACTOR 11 mg/NS 55mL infusion syr (std conc)(premade [...] (ZOFRAN) IV Q6H PRN Vania Hay MD [id number] Associated attestation - Harris Hurst MD - [...] the resident physician, nursing, RT, pharmacy and contamination consultant staff. I directly supervised the resident [...] PhD GALA FACS Surgical Critical Care Pager [phone] Date: 12/16/2017 * Casa George MD - [...] change performed. Net weight of drainage on fvn=[id number]. Ortho team paged (Dr. Swanson). * Gagan Dunlap DO - 12/15/2017 2:36 PM CDT Formatting of this note may be different from the original. Anesthesiology Acute Pain Service Date of Service: 12/15/2017 Name: Beata Kaiser is a 52 y.o. female : 1965 MRN# : [id number] PROCEDURE: Procedure(s) with comments: JAMIL PELVECTOMY - CASE LENGTH 5 HOURS CYSTORRHAPHY AND BLADDER NECK REPAIR, CYSTOSCOPY, LEFT ILIAC EXPOSURE POD #: 1 ANALGESIA TECHNIQUE Epidural catheter: bupivacaine 0.0625% Bolus: 4 mL Delay: 20 minutes Basal Infusion: 6 mL/hr ADJUNCT ANALGESIA MEDICATIONS dilaudid acetaminophen PO gabapentin Ketamine gtt TREATMENT PLAN Continue use of CORE MEASURES ABSTRACTOR for pain management, Continue use of epidural for pain management and Modification in therapy to improve pain control Epidural placed today once determined patient would not be therapeutically anticoagulated. Added ketamine gtt as adjunct. Continue dilaudid CORE MEASURES ABSTRACTOR. Will dc the PNC catheter since epidural in place. Anesthesia Pain pager: [phone] Allergies Allergen Reactions Cephalexin SEE COMMENTS Face [...] tube QDAY before breakfast Continuous Infusions: bupivacaine CORE MEASURES ABSTRACTOR 0.0625% in NS 50mL epidural infusion syr bupivacaine CORE MEASURES ABSTRACTOR PNC 0.125% infusion syringe HYDROmorphone (DILAUDID) CORE MEASURES ABSTRACTOR 11 mg/NS 55mL infusion syr (std conc)(premade [...] of starting upright mobility tomorrow. Therapist: Elmo Kruegr, PT Date: 12/15/2017 * Ruma Reynolds, RN [...] continue ICU care Adrienne Zarate MD Pager [phone] * Ruma Reynolds RN - 12/15/2017 12:30 [...] provide intervention as able. Joanne Abernathy, OTR/L [phone] * Valerie Couch MD - 12/15/2017 9:29 [...] epidural -- PNC -- gabapentin -- dilaudid CORE MEASURES ABSTRACTOR depression -- Wellbutrin -- buspar CV Mildly [...] 12/15/17 0720 Gross per 24 hour Intake 88536.76 ml Output 5880 ml Net 5520.76 ml [...] - 100 MG/DL Final Medications: gtts bupivacaine CORE MEASURES ABSTRACTOR PNC 0.125% infusion syringe HYDROmorphone (DILAUDID) CORE MEASURES ABSTRACTOR 11 mg/NS 55mL infusion syr (std conc)(premade [...] (ZOFRAN) IV Q6H PRN Harry Moore MD 5986 ATTESTATION.. I have seen, personally fully evaluated, [...] functional in the mean time a Fentanyl CORE MEASURES ABSTRACTOR at 10mcg q10min was given to the patient to help decrease her pain. Keith Garcia DO CA-1, Anesthesiology Pager [phone] * Eunice Helms, LELAND - 12/14/2017 12:49 [...] today for hemipelvectomy - Keep NPO Anthony [phone] * Mauro Melgoza, RN - 12/14/2017 5:42 [...] Date: 12/13/2017 Banuelos AC=Airway clearance AM=Aerosolized medication BA=Parke aerosol DB&C=Deep breathe & cough FEV1=Forced expiratory volume in first second) IC=Inspiratory capacity LE=Lung expansion MDI=Metered dose inhaler Neb=Nebulizer O2=Oxygen Oxim=Oximetry PEFR=Peak expiratory flow rate SPARE FIXER=Rapid Response Team * Mita Meyer RN - [...] 24 hours): FSBS (Manual): (!) 160 (12/30/17 4038) Glucose: (!) 165 (12/30/17 4820) POC Glucose (Download): (!) 160 (12/30/17 2855) I have examined the patient, and there [...] Pager Consult Orders: CONSULT COLO-RECTAL SURGERY PHYSICIAN [[id number]] ordered by Montez Agudelo DO at 12/26/17 [...] plan of care. Ramos Cheatham DO Pager: [phone] __ HPI: Beata Kaiser is a 52 [...] (!) 215 (12/26/17 1742) Ramos Cheatham DO Pager:[phone] * Spencer Purcell MD - 12/14/2017 6:04 [...] Marino Real MD PGY-2 Urology Resident Pager: [phone] __ HPI: Beata Kaiser is a 52 [...] Patient discussed with Dr. Ashkan Zarate MD 7925 History of Present Illness: Beata Kaiser is [...] nerve or vessel damage were discussed. Indications: Chief Of Staff Doctor IV therapy, TPN Procedure: Under sterile conditions [...] With My Assessment? Yes Wound Base Assessment Black;Flasher;Gallardo Surrounding Skin Assessment Intact Wound Site Closure [...] BSN Wound Ostomy Nursing Consult Service Office: [phone] Pager: [phone] After hours Wound/Ostomy team pager : [phone] * Emma Payton, SANJAY - 01/07/2018 4:30 [...] - Diabetes Education Nursing Clinical Excellence [facility] [email or web address] [phone] office [phone] pager * Nani Mcelroy RN - 01/03/2018 9:31 AM CDT Associated Order(s): CONSULT WOUND/OSTOMY TEAM Wound Ostomy Note NAME:Beata Kaiser :1965 AGE: 52 y.o. ADMISSION DATE: 12/13/2017 DAYS ADMITTED: LOS: 21 days Reason for Consult/Visit: ostomy education Pt seen 12/31 Will follow up as appropriate for education Nani Mcelroy RN, BSN Wound Ostomy Nursing Consult Service Office: [phone] Pager: [phone] After hours Wound/Ostomy team pager : [phone] * Kalie Sibley MBBS - 12/31/2017 4:44 [...] with stress hyperglycemia A1c 6.5 , controlled SEPTIC TANK SERVICER regimen: Metformin thousand milligrams twice a day, jardiance 25 mg daily Hypoglycemic episodes on this regimen: None and not checking blood sugars at home Follows up with for diabetes management: Primary care physician at [facility] Diabetic-complications assessment: Retinopathy: None Peripheral neuropathy: Yes on treatment Autonomic neuropathy: None Nephropathy: None Macrovascular complications: None Risk factor assessment: Last lipid profile - None on file On ACEi/ARB: Yes On Statin: yes 2. Hypothyroidism SEPTIC TANK SERVICER 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 daily TSH 2.1 [...] or lesions noted Pulses: 2+ and symmetric DIVISION LEADER: Nonfocal, moves all extremities Lab: Recent Labs [...] reviewed. Kalie Sibley Endocrine Fellow Pager # [phone] 12/31/2017 Associated attestation - Marco Payne MD [...] Text paged Harry Moore, Surgery Ortho resident alteration worker ([phone]) to ask if they had considered an Endocrine consult to assist with managing blood glucose readings. Today pt's BG has ranged from 268 to 351 and with the exception of yesterday morning when pt was NPO for surgery, she has been that high for the last couple of days. Emma Payton, BSN, RN Clinical Nurse Coordinator - Diabetes Education Nursing Clinical Excellence [facility] [email or web address] [phone] office [phone] pager * Nneka Thompson RD - 12/29/2017 [...] Units/ sodium bicarbonate 650 mg (#) PRN (Engraver Set Up Operator from Rx) Electrolyte Treatments: None given yesterday [...] 12/14. Pt reported she was eating well SEPTIC TANK SERVICER and has had a stable weight. Pt's [...] fellow RD, all of Pt's intake of [place] shakes may not be included in the [...] start. TPN to [facility] until Pt has [...] gm/kg DBW) Nneka Thompson MS, RD, LD, [facility] Pager [phone] Office [phone] * Anita Everett RN - 12/28/2017 1:43 [...] cut pouch. Explained to pt that an sewing machine tester will start teaching once the stoma has been placed. Questions answered. Anita Everett, RN, BSN, CMSRN, CWON Wound Ostomy Nursing Consult Service Office: [phone] Pager: [phone] After Hours Wound/Ostomy Team Pager: [phone] * Emma See, RD - 12/28/2017 12:34 [...] Diet Order: Six Small Meals Oral Supplement: [place] Breakfast Essentials No Sugar Added, Protein Powder, TID Intake (calories) Daily Average : 600 kilocalories (35% est needs) Intake (protein) Daily Average : 33 grams (33% est needs) Current EN Order: Isosource 1.5 @ 80ml/hr x's 8 hrs (2751-3475). At goal will provide: 960 kcal (58% [...] counted as part of leslie count. Recommendation: 1154-8949 Consistent Carb Diet. Protein shakes between meals, made with [place] Breakfast Essentials (NO SUGAR ADDED), skim milk, [...] Hours Status: Not met;Ongoing Emma See RD #[phone]. * Emma Payton, SANJAY - 12/28/2017 12:30 [...] how she struggles to manage her diabetes. Reel Cart Operator offered to follow up with instruction [...] - Diabetes Education Nursing Clinical Excellence [facility] [email or web address] [phone] office [phone] pager * Emma Payton RN - 12/28/2017 8:06 AM CDT Reel Cart Operator spoke with Dr. Marcelino with consulted [...] Name: Beata Kaiser Admit Date: 12/13/2017 Room: [place] [address] Reason for consult, "Hemipelvectomy, chronic pain, acute [...] medications and calcintonin. Virgen K, Anastasiia S, [place] T, Predavidl H, Castro C, Catarina M, et al. Prevention of phantom limb pain and cortical reorganization in the early phase after amputation in humans. Soc Neurosci Abstr 2001; 28: 136474 NMDA antagonist memantine was used with good results perioperative and acute post-operatively. Calcitonin in phantom limb pain: a double-blind study Author: Ashwin Johnson Journal: Pain ([place]) ISSN: [id number] Date: 09/1991 Volume: 48 Issue: 1 Starting page number: [phone] Calcitonin infusions also showed good outcomes with [...] - Gabapentin 800 mg PO twice daily, 5742-3320 - Gabapentin 600 mg PO twice daily, 3054-1559 Anticipated D/C Planning: Non-pharmacological interventions. Multi-modal oral pain regimen. Summary: Ms. 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 Thank you for allowing our service to participate in the care of this patient. Please page with questions/concerns, team pager [phone]. Jasper Betts, MSN, RN- Clinical Nurse Coordinator Pain Management [phone] Current Medication Regimen: Current Facility-Administered Medications: acetaminophen [...] Adrienne Zarate MD, 25 mg at 12/19/17 3358 fentaNYL citrate PF (SUBLIMAZE) injection 50-100 mcg, [...] filled at one pharmacy. Last prescriptions written, [facility] 0 (2068) [address] [facility] [address] Dr. Colton Welch 12/03/2017 1 12/03/2017 OXYCODONE HCL 5 MG TABLET 75.0 7 CA ARTI [id number] [facility] ( 9103) Assessment: (W) Words to describe pain: Burning, I can still feel my leg and foot (I) Intensity of pain: severe Patient's personal pain goal: mild (L) Location of pain: Left lower extremity (D) Duration of pain: constant (A) Aggravating/Alleviating factors: Constant / not much, I think gabapentin is helping Last Bowel Movement: 12/26/2017 Opioid Calculations: Date: SEPTIC TANK SERVICER PT to surgery Oxycodone 60 mg Total [...] plan of care. Ramos Cheatham DO Pager: [phone] ATTESTATION I personally performed the banuelos portions [...] Left 12/14/2017 JAMIL PELVECTOMY performed by Tamiko Lutehr MD at Main OR/Periop URETER STENT PLACEMENT [...] (!) 215 (12/26/17 1740) Ramos Cheatham DO Pager:[phone] * Nneka Thompson RD - 12/25/2017 4:52 [...] wt of 55.3kg.) Oral Diet Order: Diabetic 1314-7392 Kcal/day (60 g Carb/meal, 30 g Carb/HS [...] 12/14. Pt reported she was eating well SEPTIC TANK SERVICER and has had a stable weight. (Pt's [...] 72 Hours Nneka Thompson MS, RD, LD, [facility] Pager [phone] Office [phone] * Halima Miranda - 12/24/2017 3:42 PM CDT Associated Order(s): CONSULT PSYCHOLOGY Formatting of this note may be different from the original. 0682-5716 Pt was seen b/s for initial eval with no family or significant others present. Diagnosis: F33.0 Major depressive disorder, recurrent, mild; F41.1 Generalized anxiety disorder Requesting Physician:Elliot/Ashkan Reason for Request: Depression, coping Relevant History: The following history was taken from available medical records unless otherwise indicated. Pt is a 52 y.o., , female, RH admitted on 12/13/2017 to [facility] for a scheduled hemipelvectomy and cystoscopy [...] and 2 of her adult children in [place], [place]. Pt identified her grandchildren and family [...] Ph.D. Neurorehabilitation Psychology Postdoctoral Fellow Pager #: [phone] * Nani Mcelroy RN - 12/23/2017 1:53 [...] Type:: Wound Description (Comments): Wound Base Assessment Moist;Flasher;Yellow 12/23/2017 1:00 PM Surrounding Skin Assessment Flasher;Edema 12/23/2017 1:00 PM Wound Length (cm) (Wound [...] BSN Wound Ostomy Nursing Consult Service Office: [phone] Pager: [phone] After hours Wound/Ostomy team pager : [phone] * Berto Cadlwell, - 12/23/2017 12:20 PM CDT Associated Order(s): CONSULT ADULT PSYCHIATRY PHYSICIAN Formatting of this note may be different from the original. PSYCHIATRY CONSULT NOTE Room/Bed: OS9762/01 Admission Date: 12/13/2017 LOS: 10 days Consult [...] between 8am and 3pm on weekends at [phone]. Otherwise, page the oral and maxillofacial surgery resident alteration worker. Chief Concern: "feeling a little disoriented" History [...] Notes having 3 grandchildren. Was working making [employer] at the [employer]. Social History Social History Marital status: Spouse [...] fair, appropriate for conversation Cognition: average Language: kinyarwanda, fluent Fund of knowledge and vocabulary: average [...] and between 8am and 3pm on weekends [phone]. Otherwise, page the oral and maxillofacial surgery resident alteration worker. Staff name: Adrienne Negron, Date: 12/23/2017 * [...] Nani Lynch, Division of Infectious Diseases Pager [phone] History of Present Illness Beata Kaiser is [...] status/area of residence: lives with her Job/occupation: [employer] Travel history: [place] in Sep 2016 Environmental/outdoor/food exposures: hospitalized from [...] atelectasis and/or pneumonia. Dominique Nelson MD Pager [phone] Infectious Diseases Fellow * Nani Mcelroy RN [...] and non-insulin dependent diabetes mellitus admitted to [facility] on 12/13/17 for scheduled left hemipelvectomy [...] BSN Wound Ostomy Nursing Consult Service Office: [phone] Pager: [phone] After hours Wound/Ostomy team pager : [phone] * Luis Sargent MD - 12/21/2017 9:49 AM CDT Associated Order(s): CONSULT INTERNAL MEDICINE PHYSICIAN Formatting of this note may be different from the original. General Consult Note Admission Date: 12/13/2017 LOS: 8 days Reason for Consult: Hyponatremia Consult type: Opinion with orders Assessment/Plan Beata Kaiser is a 52 y.o. female Hx of hypothyroidism and non-insulin dependent diabetes mellitus who presented to [facility] on 12/13/17 for scheduled left hemipelvectomy [...] needs further assistance, the service should page [phone] (24 hours a day/7 days a week) to discuss the case. History of Present Illness: Beata Kaiser is a 52 y.o. female Hx of hypothyroidism and non-insulin dependent diabetes mellitus who presented to [facility] on 12/13/17 for scheduled left hemipelvectomy [...] Pertinent radiology reviewed. Luis Sargent MD Pager [phone] * Hawk Jennings MD - 12/20/2017 11:12 AM CDT Associated Order(s): CONSULT REHABILITATION MEDICINE PHYSICIAN Formatting of this note may be different from the original. Physical Medicine & Rehabilitation Consult Note Date of Service: 12/20/2017 Beata Kaiser is a 52 y.o. female. : 1965 MRN# : [id number] Primary Insurance: [facility] Secondary Insurance: Tertiary Insurance: Financial Class: [...] a 52 y.o. female admitted to [facility] on 12/13/2017 with the following issues: [...] acute inpatient rehabilitation. Other recommendations Impaired gait/mobility: SEPTIC TANK SERVICER pt was independent Currently requiring total assist Will benefit from continued work with PT to address mobility deficits Impaired ADL: SEPTIC TANK SERVICER pt was independent Currently requiring total assist [...] concerns. Hawk Jennings MD Rehab Consult Pager: [phone] History of Present Illness Hospital Course: Beata Kaiser is a 52 yo F who presented to [facility] on 12/13/17 for scheduled left hemipelvectomy [...] Pt has had ongoing pain issues since CORE MEASURES ABSTRACTOR removed. Pt has been working with PT/OT [...] 12/20/2017 6:50 AM CDT Associated Order(s): CONSULT MEAL PACKER, DIVISION LEADER Formatting of this note may be different from the original. Inpatient Psychiatric Clinical Nurse Specialist- Initial Consult Pt. Name: Beata Kaiser Room: [place] [address] LOS: 7 Reason for consult: Patient s/p [...] are any concerns or questions. Ivette Wade [facility] Pager [phone] Office [phone] * Vania Hay MD - 12/14/2017 7:33 PM CDT Associated Order(s): CONSULT TRAUMA/SICU/CRITICAL CARE SURGERY PHYSICIAN Formatting of this note may be different from the original. Critical Care Surgery Progress Note 12/14/2017 Patient: Beata Kaiser Admission date 12/13/2017, LOS: 1 day ASSESSMENT eBata Kaiser is a 52 y.o. 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 Principal Problem: Pelvic mass Active Problems: Pelvic mass in female Metabolic acidosis Acute blood loss anemia Depression Anxiety DM Hypothyroidism PLAN: NEURO: PNCs placed, anesthesia managing. Tylenol, PRN fentanyl, gabapentin, SEPTIC TANK SERVICER buspar & wellbutrin CV: Currently HDS, no [...] -- 23.8 22.4 22.4 20.8* 19.2* 17.8* [id number] -- -- -- -- 98.8 99.2* 99.1* 99.0 99.4* 97.0 Vania Hay MD Pager: [phone] Associated attestation - Ken [place] MD - [...] Date: 01/14/2018 Plan Anticipate pt discharging to [facility] at 3:30pm. Micki reviewed EMR and met with team. Pt is medically stable to discharge to [facility]. Interventions ? Support Support: Pt/Family Updates re:POC or DC Plan Micki updated pt regarding discharge planning. ? Info or Referral Information or Referral to Community Resources: Diagnosis-Related Community Resources ? Discharge Planning Micki spoke with Julia in admissions at [facility]. Insurance authorization has been received. Pt will [...] Kaiseran. Transportation Name, Phone and Availability #2: [phone]. Does the patient use Medicaid Transportation?: No ? Next Level of Care (Acute Psych discharges only) ? Discharge Disposition Durable Medical Equipment No service has been selected for the patient. Destination - Selection Complete Service Request Status Selected Specialties Address Phone Number Fax Number [facility] Selected Inpatient Rehabilitation Facility [address] [place] [address] [phone] Home Care No service has been selected [...] Informed MICKI that discussed case with medical research associate as well and no concerns at this time. Per MICKI patient is getting wound vac dressing change at 1000 this morning. [facility] aware that still waiting on insurance authorization. 1359: Per Gissell (UR/CM for [facility]) patient has been approved for inpatient rehab. 1422: Notified Erika (MICKI) that rehab able to admit today. Transportation will be scheduled for 1530 via stretcher van with [facility]. MICKI to notify patient's primary RN of discharge time, rehab bed assignment of [phone] and unit phone# for report (). Please leave in any functioning IV access for transition to 's IP rehab unit. URMILA Catalan RN Inpatient Rehab Admission Nurse ([phone]) * Patient Education - Amanda Juares - [...] Date: 01/11/2018 Plan Anticipate pt discharging to [facility] when medically stable. Micki reviewed EMR and met with team. Pt to have wound vac changed on W and F. Pt will need to be off all IV pain meds, and continuous fluids prior to admission at [facility]. Interventions ? Support Support: Pt/Family [...] Kaiser. Transportation Name, Phone and Availability #2: [phone]. Does the patient use Medicaid Transportation?: No ? Next Level of Care (Acute Psych discharges only) ? Discharge Disposition Durable Medical Equipment No service has been selected for the patient. [facility] Destination No service has been selected for the patient. Home Care No service has been selected for the patient. Dialysis/Infusion No service has been selected for the patient. Erika Werner [facility] *[phone] * Operative Report (DICTATED ONLY) - Tamiko Luther MD - 01/11/2018 11:24 AM CDT [address] [address] PATIENT NAME: BEATA KAISER MR#/PT#: [id number] Page 2 OPERATIVE REPORT DATE OF OPERATION: 01/10/2018 SURGEON: Tamiko Luther MD PUTAWAY DRIVER(S): Adrienne Zarate MD PREOPERATIVE DIAGNOSIS: Draining wound, [...] none Tamiko Luther MD KJT / MEDQ /[id number] cc: - Tamiko Luther MD * Anesthesia [...] Units/ sodium bicarbonate 650 mg(#) PRN ( Engraver Set Up Operator from Rx), simethicone Q6H PRN Diagnostic Tests [...] 52 y.o. female : 1965 MRN# : [id number] DATE OF OPERATION: 01/10/2018 Date: 01/10/2018 Preoperative [...] PACU - stable Adrienne Zarate MD Pager [phone] Associated attestation - Tamiko Luther MD - 02/07/2018 1:54 PM CDT I performed the procedure with the resident. * Operative Report (DICTATED ONLY) - Spencer Purcell MD - 01/10/2018 10:06 AM CDT Formatting of this note may be different from the original. THE [address] [address] PATIENT NAME: BEATA KAISER MR#/PT#: [id number] Page 2 OPERATIVE REPORT DATE OF OPERATION: 01/10/2018 SURGEON: Spencer Purcell MD PUTAWAY DRIVER(S): Davey Dove MD PREOPERATIVE DIAGNOSIS: Chondrosarcoma. POSTOPERATIVE [...] exchanged under sterile technique for a 22- Afghan catheter with 10 mL sterile water in [...] Dictated by: Davey Dove MD / URIEL /[id number] cc: - Spencer Purcell MD * Care [...] FLAVIA CatalanN RN Inpatient Rehab Admission Nurse ([phone]) * Patient Education - ShannonDenise perea - [...] Date: 01/05/2018 Plan [facility] [facility] when medically [facility]. Micki reviewed EMR and [...] [facility]. Transportation Name, Phone and Availability #2: [phone]. Does the patient use Medicaid Transportation?: No ? Next Level of Care (Acute Psych discharges only) ? Discharge Disposition Durable Medical Equipment No service has been selected for the patient. Destination No service has been selected for the patient. Home Care No service has been selected for the patient. Dialysis/Infusion No service has been selected for the patient. Erika Werner, [facility] *[phone] * Patient Education - Jami Dejesus RN - 01/05/2018 11:52 AM CDT Beata Kaisre accepted education and was receptive. she verbalized understanding. The following was discussed: Diet and oral pain regimen. Follow up should occur as needed. 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 Enjoys fishing, doing yard work and being outdoors Goal(s): 1. Short term goals: "be as independent as possible" 2. MCFP goals: "can't think of anything" Other: 1. [...] URMILA Catalan RN Inpatient Rehab Admission Nurse ([phone]) * Case Mgmt DC Plan - Julia [...] URMILA Catalan RN Inpatient Rehab Admission Nurse ([phone]) * Patient Education - Amanda Juares - [...] (TPN) 65 mL/hr at 12/30/172027 fentaNYL (SUBLIMAZE) CORE MEASURES ABSTRACTOR 550 mcg/ NS 55 mL infusion syr (std conc)(premade ) lactated ringers infusion Stopped (12/30/17 1440) PRN and Respiratory Meds:alum/mag hydroxide/simeth Q6H PRN, calcium carbonate Q4H PRN, diazePAM Q6H PRN, diphenhydrAMINE Q6H PRN OR [DISCONTINUED] diphenhydrAMINE Q6H PRN, fentaNYL citrate PF Q1H PRN, naloxone PRN, ondansetron (ZOFRAN) IV Q6H PRN, oxyCODONE Q3H PRN, pancrelipase 20,000 Units/ sodium bicarbonate 650 mg(#) PRN (Engraver Set Up Operator from Rx) Diagnostic Tests Hematology: Lab Results [...] may be different from the original. THE [address] [address] PATIENT NAME: BEATA KAISER MR#/PT#: [id number] Page 3 OPERATIVE REPORT DATE OF OPERATION: 12/30/2017 SURGEON: Aimee Mccollum DO PUTAWAY DRIVER(S): DO Montez Coyne DO PREOPERATIVE DIAGNOSIS: Nonhealing [...] fascia with 2 fingerbreadths of width noted. Pratt clamp was then used to grasp the [...] Dictated by: Herberth Dean DO / MEDPing /[id number] cc: - Aimee Mccollum DO * Procedures (Immed Post or Bedside) - Montez Agudelo DO - 12/30/2017 11:42 AM CDT Formatting of this note may be different from the original. Brief Operative Note Name: Beata Kaiser is a 52 y.o. female : 1965 MRN# : [id number] DATE OF OPERATION: 12/30/2017 Date: 12/30/2017 Preoperative [...] PACU - stable Montez Agudelo DO Pager [phone] * Case Mgmt DC Plan - Erika Werner - 12/29/2017 3:58 PM CDT Formatting of this note may be different from the original. Case Management Progress Note NAME:Beata Kaiser : AGE: 52 y.o. ADMISSION DATE: 12/13/2017 DAYS ADMITTED: LOS: 16 days Todays Date: 12/29/2017 Plan Pt to OR for colostomy tomorrow. Anticipate pt discharging to [facility] when medically stable. Sw reviewed EMR and met with team. Interventions ? Support Support: Pt/Family Updates re:POC or DC Plan Sw met with pt, pt's , and pt's daughter Mica. Pt is now interested in [facility] at discharge. ? Info or Referral ? Discharge Planning Sw called Julia in admissions at [facility]- pt is on the list for Wednesday next week. ? Medication Needs ? Financial ? Legal ? Other Disposition ? Expected Discharge Date Expected Discharge Date: 01/03/18 ? Transportation Does the patient need discharge transport arranged?: No Transportation Name, Phone and Availability #1: Marvin [facility]. Transportation Name, Phone and Availability #2: [phone]. Does the patient use Medicaid Transportation?: No ? Next Level of Care (Acute Psych discharges only) ? Discharge Disposition Durable Medical Equipment No service has been selected for the patient. Destination No service has been selected for the patient. Home Care No service has been selected for the patient. Dialysis/Infusion No service has been selected for the patient. Erika Werner [facility] *[phone] * Care Plan - Anita Hines [...] [facility] Transportation Name, Phone and Availability #2: [phone]. Does the patient use Medicaid Transportation?: No [...] [facility] Transportation Name, Phone and Availability #2: [phone]. Does the patient use Medicaid Transportation?: No [...] 1305. Gram positive cocci resembling Strep. Time MD/MEDICAL ADMINISTRATOR Notified: 1048 MD/MEDICAL ADMINISTRATOR Name: Dr. Zarate notified at this time MD/MEDICAL ADMINISTRATOR Response/Orders Given: calling infectious disease to notify [...] [facility] Transportation Name, Phone and Availability #2: [phone]. Does the patient use Medicaid Transportation?: No ? Next Level of Care (Acute Psych discharges only) ? Discharge Disposition Durable Medical Equipment No service has been selected for the patient. [facility] Destination No service has been selected for the patient. Home Care No service has been selected for the patient. [facility] Dialysis/Infusion No service has been selected for the patient. Erika Werner [facility] *[phone] * Patient Education - Kerline Kruger RN - 12/23/2017 10:00 AM CDT Beata Kaiser accepted education and was engaged. she verbalized understanding. The following was discussed: Plan of care reviewed with patient. Patient verbalized understanding of plan of care and anticipating working with PT and OT. Scheduled and PRN medications reviewed with patient. Follow up should occur daily. Kreline Kruger RN * Patient Education - Kendrick [...] with pt at bedside regarding discharge planning. [facility] is out of network. provided pt with in network lists of SNF in both [place] area and near pt's home. Sw will follow up with pt tomorrow. ? Info or Referral ? Discharge Planning Sw tasked [facility] to email list of in network facilities to Sw. ? Medication Needs ? Financial ? Legal ? Other Disposition ? Expected Discharge Date Expected Discharge Date: 12/27/17 ? Transportation Does the patient need discharge transport arranged?: No Transportation Name, Phone and Availability #1: Marvin [facility]. Transportation Name, Phone and Availability #2: [phone]. Does the patient use Medicaid Transportation?: No [...] Alanna Robertson - 12/22/2017 2:43 PM CDT [facility] Note Emailed [facility] with a in-network list of SNF facilities per the request of ZULEIKA Redd [facility] For additional assistance please contact ZULEIKA Redd *[phone] * Patient Education - Hawk Ortega RN [...] like Sw [facility] [place], as they are from there. Family has not had time to review other options. Sw faxed referral to [facility]. Address: [address] [place] [address] Primary Sw will continue to follow for discharge planning. ? Medication Needs ? Financial ? Legal ? Other Disposition ? Expected Discharge Date Expected Discharge Date: 12/23/17 ? Transportation Does the patient need discharge transport arranged?: No Transportation Name, Phone and Availability #1: Marvin [facility]. Transportation Name, Phone and Availability #2: [phone]. Does the patient use Medicaid Transportation?: No ? Next Level of Care (Acute Psych discharges only) ? Discharge Disposition Durable Medical Equipment No service has been selected for the patient. Destination No service has been selected for the patient. Home Care No service has been selected for the patient. Dialysis/Infusion No service has been selected for the patient. Mica Pruitt [facility] *[phone] * Patient Education - Wilda Trivedi [...] [facility] Transportation Name, Phone and Availability #2: [phone]. Does the patient use Medicaid Transportation?: No ? Next Level of Care (Acute Psych discharges only) ? Discharge Disposition Durable Medical Equipment No service has been selected for the patient. Destination No service has been selected for the patient. Home Care No service has been selected for the patient. Dialysis/Infusion No service has been selected for the patient. Erika Werner, [facility] *[phone] * Care Plan - Monica Sal [...] of pain Outcome: Goal Ongoing Encourage Epidural CORE MEASURES ABSTRACTOR Problem: Tissue Perfusion, Altered Goal: Adequate tissue [...] may be different from the original. THE [address] [address] PATIENT NAME: BEATA KAISER MR#/PT#: [id number] Page 3 OPERATIVE REPORT DATE OF OPERATION: 12/14/2017 SURGEON: Spencer Purcell MD PUTAWAY DRIVER(S): Sarah Schwab MD PREOPERATIVE DIAGNOSIS: Left retroperitoneal/pelvic [...] with all pressure points padded. A lubricated 21-Afghan cystoscope with 21-Afghan sheath was assembled and placed in the bladder. 360 degree panendoscopy was performed. There was no masses or lesions present. There was no stone, diverticula, trabeculations, or signs of malignancy within the bladder itself. Both ureteral orifices were identified. The left ureteral orifice was intubated with a 0.38 sensor wire and advanced into the kidney. This was then intubated with a 5-Afghan Pollack catheter, which was placed over the wire and then deployed. A 16-Afghan Melchor catheter was placed in the bladder [...] subsequent muscle and cutaneous flap created. The 16-Afghan catheter, which was seen in place revealed [...] structures and alteration in anatomy. A new 20-Afghan catheter was placed in the bladder and infused with saline and found to have no evidence of extravasation. We then turned the remainder of the case over to the orthopedic surgery service. ESTIMATED BLOOD LOSS: 100 cc SPECIMENS REMOVED: None ATTESTATION I performed this procedure with a resident. Staff name: Spencer Purcell MD Date: 01/03/2018 Spencer Purcell MD SHAHBAZ / MEDQ /[id number] cc: - Spencer Purcell MD * Procedures [...] patient and/or family and/or designated Power of Environmental Department Manager. I personally accomplished the pre-operative Time Out. I was personally present for the critical portions of the procedure. I directly observed the resident physician performing other appropriate portions of the procedure, discussed the case with the resident physician, and concur with the resident physician's documentation of the procedure, unless otherwise noted. Harris Hurst MD PhD GALA FACS Surgical Critical Care Pager [phone] Date: 12/16/2017 * Operative Report (DICTATED ONLY) - Tamiko Luther MD - 12/15/2017 2:[address] PM [address] [address] PATIENT NAME: BEATA KAISER MR#/PT#: [id number] Page 2 OPERATIVE REPORT DATE OF OPERATION: 12/14/2017 SURGEON: Tamiko Luther MD CO-SURGEON(S): MD Aimee Brambila DO Kirk Hance, MD Axel Thors, DO PUTAWAY DRIVER(S): Adrienne Zarate MD PREOPERATIVE DIAGNOSIS: Intermediate to [...] ( permanent) MD SARAH Guy / URIEL /[id number] cc: - Tamiko Luther MD - Spencer [...] tube QDAY before breakfast Continuous Infusions: bupivacaine CORE MEASURES ABSTRACTOR PNC 0.125% infusion syringe HYDROmorphone (DILAUDID) CORE MEASURES ABSTRACTOR 11 mg/NS 55mL infusion syr (std conc)(premade [...] 52 y.o. female : 1965 MRN# : [id number] DATE OF OPERATION: 12/14/2017 Date: 12/14/2017 Preoperative [...] much as possible Adrienne Zarate MD Pager [phone] Associated attestation - Tamiko Luther MD - 12/24/2017 1:37 PM CDT I performed the hemipelvectomy and hemisacrectomy with the resident. 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 POSTOPERATIVE DIAGNOSIS: Same. OPERATIVE PROCEDURE: 1. Repair of the left common and external iliac vein by direct venous repair within the abdominal cavity and pelvis (CPT code 17410). 2. Mobilization and exposure of the common [...] None. Pio Malagon DO AT / MEDQ /[id number] cc: - Pio Malagon DO * Operative Report (Direct Entry) - Spencer Purcell MD - 12/14/2017 8:36 AM CDT Formatting of this note may be different from the original. OPERATIVE REPORT Name: Beata Kaiser is a 52 y.o. female : 1965 MRN# : [id number] DATE OF OPERATION: 12/14/2017 Surgeon(s) and Role: [...] of the procedure. Darius Dejesus MD Pager [phone] ATTESTATION I performed this procedure with a resident. Staff name: Spencer Purcell MD Date: 01/03/2018 * Case Mgmt [place] Andra Haney RN - 12/13/2017 11:04 AM [...] with questions or concerns. Patient Address/Phone [address] [phone] (home) Emergency Contact Extended Emergency Contact Information Primary Emergency Contact: Marvin Kaiser [facility] Relation: Spouse Secondary Emergency Contact: Lynn Kaiser [facility] Relation: Daughter Healthcare Directive None on file. Transportation Does the patient need discharge transport arranged?: No Transportation Name, Phone and Availability #1: Marvin Kaiser. Transportation Name, Phone and Availability #2: [phone]. Does the patient use Medicaid Transportation?: No [...] Resources ? Coverage Primary Insurance: Commercial insurance ([facility] PPO[facility] ? 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 Financial Assistance Needed? None at this time. Psychosocial Needs ? Mental Health Mental Health History: No ? Substance Use History Substance Use History Screen: No ? Other None. Current/Previous Services ? PCP Della Cuellar, , ? Pharmacy [address] [address] ? Durable Medical Equipment Durable Medical Equipment [...] In the past Name of rehab location/group: [facility]. Would patient return for future services?: Yes OT: No BUILDING EQUIPMENT OPERATOR: No ? Correction Facility/Jail SNF: No NH: No ? Inpatient Rehab IPR: No ? Long-Term Acute Care Hospital LTACH: No ? Acute Hospital Stay Acute Hospital Stay: In the past Was patient's stay within the last 30 days?: Yes When did patient receive care?: 2 weeks ago. Name of hospital: [facility]. Andra Tejada RN, BSN, MSN Integrative Nurse Guest Laundry Attendant Pager [phone] in this encounter Plan of Treatment Date [...] MG/DL Specimen Performing Laboratory MAIN LAB [address] [place] [address] * POC GLUCOSE (01/14/2018 7:16 AM) Component Value Ref Range Glucose, POC 144 (H) 70 - 100 MG/DL Specimen Performing Laboratory MAIN LAB [address] [place] [address] * LIVER FUNCTION PANEL (01/14/2018 4:40 AM) [...] 8.0 G/DL Specimen Performing Laboratory MAIN LAB [address] [place] [address] * BASIC METABOLIC PANEL (01/14/2018 4:40 AM) [...] questions. Specimen Performing Laboratory Blood MAIN LAB [address] [place] [address] * CBC (01/14/2018 4:40 AM) Component Value [...] FL Specimen Performing Laboratory Blood MAIN LAB [address] [place] [address] * POC GLUCOSE (01/14/2018 2:54 AM) Component Value Ref Range Glucose, POC 218 (H) 70 - 100 MG/DL Specimen Performing Laboratory MAIN LAB [address] [place] [address] * POC GLUCOSE (01/13/2018 9:07 PM) Component Value Ref Range Glucose, POC 125 (H) 70 - 100 MG/DL Specimen Performing Laboratory MAIN LAB [address] [place] [address] * POC GLUCOSE (01/13/2018 5:46 PM) Component Value Ref Range Glucose, POC 136 (H) 70 - 100 MG/DL Specimen Performing Laboratory MAIN LAB [address] [place] [address] * POC GLUCOSE (01/13/2018 12:09 PM) Component Value Ref Range Glucose, POC 89 70 - 100 MG/DL Specimen Performing Laboratory MAIN LAB [address] [place] [address] * POC GLUCOSE (01/13/2018 7:40 AM) Component Value Ref Range Glucose, POC 111 (H) 70 - 100 MG/DL Specimen Performing Laboratory MAIN LAB [address] [place] [address] * BASIC METABOLIC PANEL (01/13/2018 3:42 AM) [...] Pharmacist for questions. Specimen Performing Laboratory Blood [facility] [address] [place] [address] * CBC (01/13/2018 3:42 AM) Component Value [...] - 11 FL Specimen Performing Laboratory Blood [facility] [address] [place], [place] [id number] * TRIGLYCERIDE (01/13/2018 3:42 AM) Component Value Ref Range Triglycerides 254 (H) <150 MG/DL Specimen Performing Laboratory Blood [facility] [address] [place] [address] * POC GLUCOSE (01/13/2018 2:33 AM) Component Value Ref Range Glucose, POC 200 (H) 70 - 100 MG/DL Specimen Performing Laboratory [facility] [address] [place], [place] [id number] * POC GLUCOSE (01/12/2018 10:39 PM) Component Value Ref Range Glucose, POC 87 70 - 100 MG/DL Specimen Performing Laboratory [facility] [address] [place] [address] * POC GLUCOSE (01/12/2018 5:55 PM) Component Value Ref Range Glucose, POC 107 (H) 70 - 100 MG/DL Specimen Performing Laboratory [facility] [address] [place] [address] * POC GLUCOSE (01/12/2018 12:24 PM) Component Value Ref Range Glucose, POC 67 (L) 70 - 100 MG/DL Specimen Performing Laboratory [facility] [address] [place] [address] * POC GLUCOSE (01/12/2018 7:42 AM) Component Value Ref Range Glucose, POC 141 (H) 70 - 100 MG/DL Specimen Performing Laboratory [facility] [address] [place], [place] [id number] * BASIC METABOLIC PANEL (01/12/2018 6:12 AM) [...] Pharmacist for questions. Specimen Performing Laboratory Blood [facility] [address] [place] [address] * CBC (01/12/2018 6:12 AM) Component Value [...] - 11 FL Specimen Performing Laboratory Blood [facility] [address] [place], [place] [id number] * POC GLUCOSE (01/12/2018 2:17 AM) Component Value Ref Range Glucose, POC 184 (H) 70 - 100 MG/DL Specimen Performing Laboratory [facility] [address] [place] [address] * POC GLUCOSE (01/11/2018 8:39 PM) Component Value Ref Range Glucose, POC 196 (H) 70 - 100 MG/DL Specimen Performing Laboratory [facility] [address] [place] [address] * POC GLUCOSE (01/11/2018 5:08 PM) Component Value Ref Range Glucose, POC 128 (H) 70 - 100 MG/DL Specimen Performing Laboratory [facility] [address] [place], [place] [id number] * POC GLUCOSE (01/11/2018 11:27 AM) Component Value Ref Range Glucose, POC 160 (H) 70 - 100 MG/DL Specimen Performing Laboratory [facility] [address] [place] [address] * POC GLUCOSE (01/11/2018 7:17 AM) Component Value Ref Range Glucose, POC 218 (H) 70 - 100 MG/DL Specimen Performing Laboratory MAIN LAB [address] [place] [address] * BASIC METABOLIC PANEL (01/11/2018 3:40 AM) [...] questions. Specimen Performing Laboratory Blood MAIN LAB [address] [place] [address] * CBC (01/11/2018 3:40 AM) Component Value [...] FL Specimen Performing Laboratory Blood MAIN LAB [address] [place] [address] * POC GLUCOSE (01/11/2018 3:33 AM) Component Value Ref Range Glucose, POC 199 (H) 70 - 100 MG/DL Specimen Performing Laboratory MAIN LAB [address] [place] [address] * POC GLUCOSE (01/10/2018 8:45 PM) Component Value Ref Range Glucose, POC 297 (H) 70 - 100 MG/DL Specimen Performing Laboratory [facility] [address] [place] [address] * POC GLUCOSE (01/10/2018 6:05 PM) Component Value Ref Range Glucose, POC 290 (H) 70 - 100 MG/DL Specimen Performing Laboratory [facility] [address] [place] [address] * POC GLUCOSE (01/10/2018 1:53 PM) Component Value Ref Range Glucose, POC 140 (H) 70 - 100 MG/DL Specimen Performing Laboratory [facility] [address] [place] [address] * POC GLUCOSE (01/10/2018 10:49 AM) Component Value Ref Range Glucose, POC 87 70 - 100 MG/DL Specimen Performing Laboratory [facility] [address] [place] [address] * FLUORO MOBILE IN OR (01/10/2018 9:51 AM) Specimen Performing Laboratory FANTA Yi This order has been auto finalized and does not contain a result. * POC GLUCOSE (01/10/2018 8:43 AM) Component Value Ref Range Glucose, POC 100 70 - 100 MG/DL Specimen Performing Laboratory [facility] [address] [place] [address] * POC GLUCOSE (01/10/2018 8:02 AM) Component Value Ref Range Glucose, POC 101 (H) 70 - 100 MG/DL Specimen Performing Laboratory [facility] [address] [place] [address] * POC GLUCOSE (01/10/2018 3:39 AM) Component Value Ref Range Glucose, POC 131 (H) 70 - 100 MG/DL Specimen Performing Laboratory [facility] [address] [place] [address] * TRIGLYCERIDE (01/10/2018 3:30 AM) Component Value Ref Range Triglycerides 195 (H) <150 MG/DL Specimen Performing Laboratory Blood [facility] [address] [place] [address] * BASIC METABOLIC PANEL (01/10/2018 3:30 AM) [...] questions. Specimen Performing Laboratory Blood MAIN LAB [address] [place] [address] * CBC AND DIFF (01/10/2018 3:30 AM) [...] K/UL Specimen Performing Laboratory Blood MAIN LAB [address] [place] [address] * POC GLUCOSE (01/09/2018 8:37 PM) Component Value Ref Range Glucose, POC 150 (H) 70 - 100 MG/DL Specimen Performing Laboratory MAIN LAB [address] [place] [address] * POC GLUCOSE (01/09/2018 7:37 PM) Component Value Ref Range Glucose, POC 135 (H) 70 - 100 MG/DL Specimen Performing Laboratory MAIN LAB [address] [place] [address] * POC GLUCOSE (01/09/2018 6:20 PM) Component Value Ref Range Glucose, POC 135 (H) 70 - 100 MG/DL Specimen Performing Laboratory MAIN LAB [address] [place] [address] * FREE T4 (FREE THYROXINE) ONLY (01/09/2018 1:40 PM) Component Value Ref Range T4-Free 0.9 0.6 - 1.6 NG/DL Specimen Performing Laboratory Blood MAIN LAB [address] [place] [address] * THYROID STIMULATING HORMONE-TSH (01/09/2018 1:40 PM) Component Value Ref Range TSH 16.790 (H) 0.35 - 5.00 MCU/ML Specimen Performing Laboratory Blood [facility] [address] [place] [address] * POC GLUCOSE (01/09/2018 1:25 PM) Component Value Ref Range Glucose, POC 102 (H) 70 - 100 MG/DL Specimen Performing Laboratory [facility] [address] [place] [address] * POC GLUCOSE (01/09/2018 8:12 AM) Component Value Ref Range Glucose, POC 150 (H) 70 - 100 MG/DL Specimen Performing Laboratory MAIN LAB [address] [place] [address] * BASIC METABOLIC PANEL (01/09/2018 3:17 AM) [...] questions. Specimen Performing Laboratory Blood MAIN LAB [address] [place] [address] * CBC AND DIFF (01/09/2018 3:17 AM) [...] K/UL Specimen Performing Laboratory Blood MAIN LAB [address] [place] [address] * POC GLUCOSE (01/09/2018 3:14 AM) Component Value Ref Range Glucose, POC 154 (H) 70 - 100 MG/DL Specimen Performing Laboratory MAIN LAB [address] [place] [address] * POC GLUCOSE (01/08/2018 9:01 PM) Component Value Ref Range Glucose, POC 240 (H) 70 - 100 MG/DL Specimen Performing Laboratory MAIN LAB [address] [place] [address] * POC GLUCOSE (01/08/2018 6:20 PM) Component Value Ref Range Glucose, POC 123 (H) 70 - 100 MG/DL Specimen Performing Laboratory MAIN LAB [address] [place] [address] * POC GLUCOSE (01/08/2018 12:47 PM) Component Value Ref Range Glucose, POC 214 (H) 70 - 100 MG/DL Specimen Performing Laboratory MAIN LAB [address] [place] [address] * POC GLUCOSE (01/08/2018 7:49 AM) Component Value Ref Range Glucose, POC 113 (H) 70 - 100 MG/DL Specimen Performing Laboratory MAIN LAB [address] [place] [address] * BASIC METABOLIC PANEL (01/08/2018 3:22 AM) [...] Specimen Performing Laboratory Blood MAIN LAB [address] [place] [address] * CBC AND DIFF (01/08/2018 3:22 AM) [...] - 0.20 K/UL Specimen Performing Laboratory Blood [facility] [address] [place] [address] * POC GLUCOSE (01/08/2018 3:17 AM) Component Value Ref Range Glucose, POC 108 (H) 70 - 100 MG/DL Specimen Performing Laboratory [facility] [address] [place] [address] * POC GLUCOSE (01/07/2018 8:35 PM) Component Value Ref Range Glucose, POC 149 (H) 70 - 100 MG/DL Specimen Performing Laboratory [facility] [address] [place] [address] * POC GLUCOSE (01/07/2018 6:38 PM) Component Value Ref Range Glucose, POC 85 70 - 100 MG/DL Specimen Performing Laboratory [facility] [address] [place], [place] [id number] * POC GLUCOSE (01/07/2018 1:40 PM) Component Value Ref Range Glucose, POC 83 70 - 100 MG/DL Specimen Performing Laboratory [facility] [address] [place], [place] [id number] * POC GLUCOSE (01/07/2018 8:05 AM) Component Value Ref Range Glucose, POC 131 (H) 70 - 100 MG/DL Specimen Performing Laboratory [facility] [address] [place], [place] [id number] * POC GLUCOSE (01/07/2018 3:04 AM) Component Value Ref Range Glucose, POC 173 (H) 70 - 100 MG/DL Specimen Performing Laboratory [facility] [address] [place] [address] * LIVER FUNCTION PANEL (01/07/2018 3:02 AM) [...] Specimen Performing Laboratory Blood MAIN LAB [address] [place] [address] * BASIC METABOLIC PANEL (01/07/2018 3:02 AM) [...] Specimen Performing Laboratory Blood MAIN LAB [address] [place] [address] * CBC AND DIFF (01/07/2018 3:02 AM) [...] Performing Laboratory Blood [facility] MAIN LAB [address] [place] [address] * POC GLUCOSE (01/06/2018 9:49 PM) Component Value Ref Range Glucose, POC 204 (H) 70 - 100 MG/DL Specimen Performing Laboratory [facility] MAIN LAB [address] [place] [address] * POC GLUCOSE (01/06/2018 5:24 PM) Component Value Ref Range Glucose, POC 223 (H) 70 - 100 MG/DL Specimen Performing Laboratory [facility] MAIN LAB [address] [place] [address] * POC GLUCOSE (01/06/2018 1:11 PM) Component Value Ref Range Glucose, POC 99 70 - 100 MG/DL Specimen Performing Laboratory [facility] MAIN LAB [address] [place] [address] * CT ABD/PELV WO CONTRAST (01/06/2018 11:43 [...] of the renal veins. Approved by Pardeep Bnetley M.D. on 01/06/2018 3:07 PM By my [...] Performing Laboratory MAIN LAB [address] [place] [address] * POC GLUCOSE (01/06/2018 2:58 AM) Component Value Ref Range Glucose, POC 194 (H) 70 - 100 MG/DL Specimen Performing Laboratory MAIN LAB [address] [place] [address] * BASIC METABOLIC PANEL (01/06/2018 2:52 AM) [...] Specimen Performing Laboratory Blood MAIN LAB [address] [place] [address] * CBC AND DIFF (01/06/2018 2:52 AM) [...] - 0.20 K/UL Specimen Performing Laboratory Blood [facility] [address] [place] [address] * TRIGLYCERIDE (01/06/2018 2:52 AM) Component Value Ref Range Triglycerides 243 (H) <150 MG/DL Specimen Performing Laboratory Blood [facility] [address] [place] [address] * POC GLUCOSE (01/05/2018 9:38 PM) Component Value Ref Range Glucose, POC 276 (H) 70 - 100 MG/DL Specimen Performing Laboratory MAIN LAB [address] [place] [address] * POC GLUCOSE (01/05/2018 5:33 PM) Component Value Ref Range Glucose, POC 248 (H) 70 - 100 MG/DL Specimen Performing Laboratory [facility] [address] [place], [place] [id number] * POC GLUCOSE (01/05/2018 12:22 PM) Component Value Ref Range Glucose, POC 194 (H) 70 - 100 MG/DL Specimen Performing Laboratory [facility] [address] [place], [place] [id number] * POC GLUCOSE (01/05/2018 7:52 AM) Component Value Ref Range Glucose, POC 265 (H) 70 - 100 MG/DL Specimen Performing Laboratory [facility] [address] [place], [place] [id number] * BASIC METABOLIC PANEL (01/05/2018 3:04 AM) [...] Specimen Performing Laboratory Blood [facility] MAIN LAB [address] [place] [address] * CBC AND DIFF (01/05/2018 3:04 AM) [...] K/UL Specimen Performing Laboratory Blood MAIN LAB [address] [place], [place] [id number] * POC GLUCOSE (01/05/2018 2:44 AM) Component Value Ref Range Glucose, POC 279 (H) 70 - 100 MG/DL Specimen Performing Laboratory MAIN LAB [address] [place] [address] * POC GLUCOSE (01/04/2018 8:58 PM) Component Value Ref Range Glucose, POC 325 (H) 70 - 100 MG/DL Specimen Performing Laboratory MAIN LAB [address] [place] [address] * POC GLUCOSE (01/04/2018 3:22 PM) Component Value Ref Range Glucose, POC 278 (H) 70 - 100 MG/DL Specimen Performing Laboratory MAIN LAB [address] [place] [address] * ALBUMIN (01/04/2018 11:55 AM) Component Value Ref Range Albumin 2.2 (L) 3.5 - 5.0 G/DL Specimen Performing Laboratory Blood MAIN LAB [address] [place], [place] [id number] * PREALBUMIN (01/04/2018 11:55 AM) Component Value Ref Range Prealbumin 18.0 17 - 34 MG/DL Specimen Performing Laboratory Blood MAIN LAB [address] [place] [address] * POC GLUCOSE (01/04/2018 7:50 AM) Component Value Ref Range Glucose, POC 233 (H) 70 - 100 MG/DL Specimen Performing Laboratory MAIN LAB [address] [place] [address] * BASIC METABOLIC PANEL (01/04/2018 2:45 AM) [...] Specimen Performing Laboratory Blood MAIN LAB [address] [place] [address] * CBC (01/04/2018 2:45 AM) Component Value [...] Specimen Performing Laboratory Blood MAIN LAB [address] [place] [address] * POC GLUCOSE (01/04/2018 2:39 AM) Component Value Ref Range Glucose, POC 208 (H) 70 - 100 MG/DL Specimen Performing Laboratory MAIN LAB [address] [place] [address] * POC GLUCOSE (01/03/2018 8:21 PM) Component Value Ref Range Glucose, POC 255 (H) 70 - 100 MG/DL Specimen Performing Laboratory MAIN LAB [address] [place] [address] * POC GLUCOSE (01/03/2018 4:53 PM) Component Value Ref Range Glucose, POC 221 (H) 70 - 100 MG/DL Specimen Performing Laboratory [facility] [address] [place], [place] [id number] * POC GLUCOSE (01/03/2018 2:44 PM) Component Value Ref Range Glucose, POC 168 (H) 70 - 100 MG/DL Specimen Performing Laboratory [facility] [address] [place], [place] [id number] * POC GLUCOSE (01/03/2018 7:51 AM) Component Value Ref Range Glucose, POC 119 (H) 70 - 100 MG/DL Specimen Performing Laboratory [facility] [address] [place], [place] [id number] * TRIGLYCERIDE (01/03/2018 5:10 AM) Component Value Ref Range Triglycerides 263 (H) <150 MG/DL Specimen Performing Laboratory Blood [facility] [address] [place] [address] * BASIC METABOLIC PANEL (01/03/2018 5:10 AM) [...] Pharmacist for questions. Specimen Performing Laboratory Blood [facility] [address] [place] [address] * CBC (01/03/2018 5:10 AM) Component Value [...] - 11 FL Specimen Performing Laboratory Blood [facility] [address] [place] [address] * MAGNESIUM (01/03/2018 5:10 AM) Component Value Ref Range Magnesium 1.8 1.6 - 2.6 mg/dL Specimen Performing Laboratory Blood [facility] [address] [place] [address] * PHOSPHORUS (01/03/2018 5:10 AM) Component Value Ref Range Phosphorus 2.2 2.0 - 4.0 MG/DL Specimen Performing Laboratory Blood [facility] [address] [place] [address] * POC GLUCOSE (01/03/2018 2:00 AM) Component Value Ref Range Glucose, POC 236 (H) 70 - 100 MG/DL Specimen Performing Laboratory [facility] [address] [place] [address] * POC GLUCOSE (01/02/2018 10:44 PM) Component Value Ref Range Glucose, POC 302 (H) 70 - 100 MG/DL Specimen Performing Laboratory [facility] [address] [place] [address] * POC GLUCOSE (01/02/2018 8:28 PM) Component Value Ref Range Glucose, POC 317 (H) 70 - 100 MG/DL Specimen Performing Laboratory [facility] [address] [place] [address] * ECG-SCAN (01/02/2018 7:45 PM) Narrative Ordered by an unspecified provider. * POC GLUCOSE (01/02/2018 5:35 PM) Component Value Ref Range Glucose, POC 242 (H) 70 - 100 MG/DL Specimen Performing Laboratory MAIN LAB [address] [place] [address] * POC GLUCOSE (01/02/2018 12:30 PM) Component Value Ref Range Glucose, POC 315 (H) 70 - 100 MG/DL Specimen Performing Laboratory MAIN LAB [address] [place] [address] * THYROID STIMULATING HORMONE-TSH (01/02/2018 9:45 AM) Component Value Ref Range TSH 12.590 (H) 0.35 - 5.00 MCU/ML Specimen Performing Laboratory Blood MAIN LAB [address] [place] [address] * CREATININE-URINE RANDOM (01/02/2018 9:45 AM) Component Value Ref Range Creatinine, Random 20 MG/DL Specimen Performing Laboratory Urine MAIN LAB [address] [place] [address] * SODIUM-URINE RANDOM (01/02/2018 9:45 AM) Component Value Ref Range Sodium, Random 15 MMOL/L Specimen Performing Laboratory Urine MAIN LAB [address] [place] [address] * POC GLUCOSE (01/02/2018 7:49 AM) Component Value Ref Range Glucose, POC 280 (H) 70 - 100 MG/DL Specimen Performing Laboratory MAIN LAB [address] [place] [address] * BASIC METABOLIC PANEL (01/02/2018 3:25 AM) [...] Pharmacist for questions. Specimen Performing Laboratory Blood [facility] [address] [place] [address] * CBC (01/02/2018 3:25 AM) Component Value [...] - 11 FL Specimen Performing Laboratory Blood [facility] [address] [place] [address] * MAGNESIUM (01/02/2018 3:25 AM) Component Value Ref Range Magnesium 1.9 1.6 - 2.6 mg/dL Specimen Performing Laboratory Blood [facility] [address] [place] [address] * PHOSPHORUS (01/02/2018 3:25 AM) Component Value Ref Range Phosphorus 1.7 (L) 2.0 - 4.0 MG/DL Specimen Performing Laboratory Blood [facility] [address] [place], [place] [id number] * POC GLUCOSE (01/02/2018 2:11 AM) Component Value Ref Range Glucose, POC 288 (H) 70 - 100 MG/DL Specimen Performing Laboratory [facility] [address] [place] [address] * POC GLUCOSE (01/01/2018 9:15 PM) Component Value Ref Range Glucose, POC 289 (H) 70 - 100 MG/DL Specimen Performing Laboratory [facility] [address] [place] [address] * POC GLUCOSE (01/01/2018 5:48 PM) Component Value Ref Range Glucose, POC 284 (H) 70 - 100 MG/DL Specimen Performing Laboratory [facility] [address] [place] [address] * POC GLUCOSE (01/01/2018 4:12 PM) Component Value Ref Range Glucose, POC 354 (H) 70 - 100 MG/DL Specimen Performing Laboratory MAIN LAB [address] [place] [address] * POC GLUCOSE (01/01/2018 1:36 PM) Component Value Ref Range Glucose, POC 386 (H) 70 - 100 MG/DL Specimen Performing Laboratory MAIN LAB [address] [place] [address] * POC GLUCOSE (01/01/2018 8:54 AM) Component Value Ref Range Glucose, POC 363 (H) 70 - 100 MG/DL Specimen Performing Laboratory MAIN LAB [address] [place] [address] * BASIC METABOLIC PANEL (01/01/2018 5:15 AM) [...] Pharmacist for questions. Specimen Performing Laboratory Blood [facility] [address] [place] [address] * CBC (01/01/2018 5:15 AM) Component Value [...] - 11 FL Specimen Performing Laboratory Blood [facility] [address] [place] [address] * MAGNESIUM (01/01/2018 5:15 AM) Component Value Ref Range Magnesium 2.0 1.6 - 2.6 mg/dL Specimen Performing Laboratory Blood [facility] [address] [place] [address] 13528 * PHOSPHORUS (01/01/2018 5:15 AM) Component Value Ref Range Phosphorus 2.9 2.0 - 4.0 MG/DL Specimen Performing Laboratory Blood [facility] [address] [place] [address] * POC GLUCOSE (01/01/2018 2:17 AM) Component Value Ref Range Glucose, POC 330 (H) 70 - 100 MG/DL Specimen Performing Laboratory [facility] [address] [place] [address] * TRANSFUSE RBC'S NON-BLEEDING PT (01/01/2018 2:11 AM) Specimen Performing Laboratory Blood * TRANSFUSE RBC'S NON-BLEEDING PT (01/01/2018 2:11 AM) Specimen Performing Laboratory Blood * POC GLUCOSE (12/31/2017 11:44 PM) Component Value Ref Range Glucose, POC 326 (H) 70 - 100 MG/DL Specimen Performing Laboratory [facility] [address] [place] [address] 145[address] * POC GLUCOSE (12/31/2017 8:58 PM) Component Value Ref Range Glucose, POC 283 (H) 70 - 100 MG/DL Specimen Performing Laboratory [facility] [address] [place] [address] 14920 * TRANSFUSE RBC'S NON-BLEEDING PT (12/31/2017 6:22 PM) Specimen Performing Laboratory Blood * TRANSFUSE RBC'S NON-BLEEDING PT (12/31/2017 6:22 PM) Specimen Performing Laboratory Blood * POC GLUCOSE (12/31/2017 5:32 PM) Component Value Ref Range Glucose, POC 274 (H) 70 - 100 MG/DL Specimen Performing Laboratory [facility] [address] [place] [address] * TROPONIN-I (12/31/2017 4:57 PM) Component Value Ref Range Troponin-I 0.01 0.0 - 0.05 NG/ML Specimen Performing Laboratory Blood [facility] [address] [place], [place] [id number] * POC GLUCOSE (12/31/2017 1:59 PM) Component Value Ref Range Glucose, POC 299 (H) 70 - 100 MG/DL Specimen Performing Laboratory MAIN LAB [address] [place] [address] * TRANSFUSE RBC'S BLEEDING PT OR EXCHANGE TRANSFUSION (12/31/2017 1:15 PM) Specimen Performing Laboratory Blood * TRANSFUSE RBC'S BLEEDING PT OR EXCHANGE TRANSFUSION (12/31/2017 1:15 PM) Specimen Performing Laboratory Blood * POC GLUCOSE (12/31/2017 11:56 AM) Component Value Ref Range Glucose, POC 268 (H) 70 - 100 MG/DL Specimen Performing Laboratory MAIN LAB [address] [place] [address] * BASIC METABOLIC PANEL (12/31/2017 10:10 AM) [...] Specimen Performing Laboratory Blood MAIN LAB [address] [place] [address] * CBC (12/31/2017 10:10 AM) Component Value [...] FL Specimen Performing Laboratory Blood MAIN LAB [address] [place] [address] * POC GLUCOSE (12/31/2017 8:49 AM) Component Value Ref Range Glucose, POC 351 (H) 70 - 100 MG/DL Specimen Performing Laboratory MAIN LAB [address] [place] [address] * POC GLUCOSE (12/31/2017 7:53 AM) Component Value Ref Range Glucose, POC 297 (H) 70 - 100 MG/DL Specimen Performing Laboratory MAIN LAB [address] [place] [address] * BASIC METABOLIC PANEL (12/31/2017 3:30 AM) [...] for questions. Specimen Performing Laboratory MAIN LAB [address] [place] [address] * MAGNESIUM (12/31/2017 3:30 AM) Component Value Ref Range Magnesium 2.0 1.6 - 2.6 mg/dL Specimen Performing Laboratory Blood MAIN LAB [address] [place] [address] * PHOSPHORUS (12/31/2017 3:30 AM) Component Value Ref Range Phosphorus 4.1 (H) 2.0 - 4.0 MG/DL Specimen Performing Laboratory Blood MAIN LAB [address] [place] [address] 13782 * POC GLUCOSE (12/31/2017 3:17 AM) Component Value Ref Range Glucose, POC 253 (H) 70 - 100 MG/DL Specimen Performing Laboratory [facility] [address] [place] [address] * POC GLUCOSE (12/31/2017 1:37 AM) Component Value Ref Range Glucose, POC 249 (H) 70 - 100 MG/DL Specimen Performing Laboratory [facility] [address] [place] [address] * POC GLUCOSE (12/30/2017 9:57 PM) Component Value Ref Range Glucose, POC 211 (H) 70 - 100 MG/DL Specimen Performing Laboratory [facility] [address] [place] [address] * POC GLUCOSE (12/30/2017 5:57 PM) Component Value Ref Range Glucose, POC 207 (H) 70 - 100 MG/DL Specimen Performing Laboratory [facility] [address] [place] [address] * POC GLUCOSE (12/30/2017 12:35 PM) Component Value Ref Range Glucose, POC 173 (H) 70 - 100 MG/DL Specimen Performing Laboratory [facility] [address] [place] [address] * SURGICAL PATHOLOGY (12/30/2017 11:56 AM) Component Value Ref Range PATHOLOGY REPORT [facility] [email or web address] Department of Pathology and Laboratory Medicine [address] [place] [address] Surgical Pathology Office:[phone]:[phone] SURGICAL PATHOLOGY REPORT NAME: BEATA KAISER SURG PATH #: [id number] MR #: [id number] SPECIMEN CLASS: [facility] BILLING #: [id number] ALT ID #:LOCATION: 43 DATE OF PROCEDURE: [...] the specimen is entirely submitted in cassettes [id number].([facility]) [facility]/12/30/2017 Specimen Performing Laboratory LAB RESULTS * POC GLUCOSE (12/30/2017 9:45 AM) Component Value Ref Range Glucose, POC 184 (H) 70 - 100 MG/DL Specimen Performing Laboratory MAIN LAB [address] [place] [address] * TYPE & CROSSMATCH (12/30/2017 8:50 AM) Component Value Ref Range Units Ordered 4 Crossmatch Expires 01/02/2018 Record Check FOUND ABO/RH(D) A POS Antibody Screen NEG Electronic Crossmatch YES Unit Number [id number] Blood Component Type RBC,ADSOL,LEUKO REDUCED Unit Division 0 Status OF Unit REL FROM ALLOC Transfusion Status OK TO TRANSFUSE Crossmatch Result COMPATIBLE,ELECTRONIC Unit Number [id number] Blood Component Type RBC,ADSOL,LEUKO REDUCED Unit Division 0 Status OF Unit REL FROM ALLOC Transfusion Status OK TO TRANSFUSE Crossmatch Result COMPATIBLE,ELECTRONIC Unit Number [id number] Blood Component Type RBC,ADSOL,LEUKO REDUCED Unit Division 0 Status OF Unit TRANSFUSED Transfusion Status OK TO TRANSFUSE Crossmatch Result COMPATIBLE,ELECTRONIC Unit Number [id number] Blood Component Type RBC,ADSOL,LEUKO REDUCED,2ND CONT. Unit Division 0 Status OF Unit TRANSFUSED Transfusion Status OK TO TRANSFUSE Crossmatch Result COMPATIBLE,ELECTRONIC Specimen Performing Laboratory Blood MAIN LAB [address] [place] [address] * CBC AND DIFF (12/30/2017 8:35 AM) [...] K/UL Specimen Performing Laboratory Blood MAIN LAB [address] [place] [address] 27924 * TRIGLYCERIDE (12/30/2017 4:58 AM) Component Value Ref Range Triglycerides 198 (H) <150 MG/DL Specimen Performing Laboratory Blood MAIN LAB [address] [place] [address] * MAGNESIUM (12/30/2017 4:58 AM) Component Value Ref Range Magnesium 2.0 1.6 - 2.6 mg/dL Specimen Performing Laboratory Blood MAIN LAB [address] [place] [address] 833[address] * PHOSPHORUS (12/30/2017 4:58 AM) Component Value Ref Range Phosphorus 4.1 (H) 2.0 - 4.0 MG/DL Specimen Performing Laboratory Blood MAIN LAB [address] [place] [address] * COMPREHENSIVE METABOLIC PANEL (12/30/2017 4:58 AM) [...] Pharmacist for questions. Specimen Performing Laboratory Blood [facility] [address] [place] [address] 6[address] * POC GLUCOSE (12/30/2017 3:57 AM) Component Value Ref Range Glucose, POC 160 (H) 70 - 100 MG/DL Specimen Performing Laboratory MAIN LAB [address] [place] [address] * POC GLUCOSE (12/29/2017 9:08 PM) Component Value Ref Range Glucose, POC 267 (H) 70 - 100 MG/DL Specimen Performing Laboratory MAIN LAB [address] [place] [address] 98412 * POC GLUCOSE (12/29/2017 6:40 PM) Component Value Ref Range Glucose, POC 373 (H) 70 - 100 MG/DL Specimen Performing Laboratory MAIN LAB [address] [place] [address] 16415 * POC GLUCOSE (12/29/2017 5:41 PM) Component Value Ref Range Glucose, POC 335 (H) 70 - 100 MG/DL Specimen Performing Laboratory MAIN LAB [address] [place], [place] [id number] * POC GLUCOSE (12/29/2017 11:56 AM) Component Value Ref Range Glucose, POC 281 (H) 70 - 100 MG/DL Specimen Performing Laboratory MAIN LAB [address] [place] [address] * POC GLUCOSE (12/29/2017 8:18 AM) Component Value Ref Range Glucose, POC 233 (H) 70 - 100 MG/DL Specimen Performing Laboratory MAIN LAB [address] [place] [address] * TYPE & SCREEN (NOT CROSSMATCH ELIGIBLE) (12/29/2017 4:51 AM) Component Value Ref Range ABO/RH(D) A POS Antibody Screen NEG Blood Component Type RED CELL GROUP Specimen Performing Laboratory Blood, venous - Blood [facility] [address] [place] [address] * BASIC METABOLIC PANEL (12/29/2017 4:51 AM) [...] questions. Specimen Performing Laboratory Blood MAIN LAB [address] [place] [address] * CBC AND DIFF (12/29/2017 4:51 AM) [...] 7.0 K/UL Manual Specimen Performing Laboratory Blood [facility] [address] [place], [place] [id number] * POC GLUCOSE (12/29/2017 3:43 AM) Component Value Ref Range Glucose, POC 259 (H) 70 - 100 MG/DL Specimen Performing Laboratory [facility] [address] [place], [place] [id number] * POC GLUCOSE (12/28/2017 8:23 PM) Component Value Ref Range Glucose, POC 280 (H) 70 - 100 MG/DL Specimen Performing Laboratory [facility] [address] [place], [place] [id number] * POC GLUCOSE (12/28/2017 5:44 PM) Component Value Ref Range Glucose, POC 363 (H) 70 - 100 MG/DL Specimen Performing Laboratory [facility] [address] [place] [address] * OSMOLALITY-URINE RANDOM (12/28/2017 5:18 PM) Component Value Ref Range Osmolality-Urine 366 50 - 1,400 MOS/KG Specimen Performing Laboratory Urine [facility] [address] [place] [address] 15234 * SODIUM-URINE RANDOM (12/28/2017 5:18 PM) Component Value Ref Range Sodium, Random 28 MMOL/L Specimen Performing Laboratory Urine [facility] [address] [place] [address]50 * CULTURE-URINE W/SENSITIVITY (12/28/2017 5:18 PM) Component Value Ref Range Battery Name URINE CULTURE Specimen Description URINE,INDWELLING CATH Special Requests NONE Culture NO GROWTH Report Status FINAL 12/29/2017 Specimen Performing Laboratory Urine - Melchor Catheter [facility] [address] [place] [address] 31458 * URINALYSIS, MICROSCOPIC (12/28/2017 5:18 PM) Component Value Ref Range WBCs,UA 10-20 0 - 2 /HPF RBCs,UA 10-20 0 - 3 /HPF MucousUA TRACE Bacteria,UA FEW (A) NEG-NEG Squamous Epithelial Cells 0-2 0 - 5 Budding Yeast FEW Specimen Performing Laboratory Urine [facility] [address] [place] [address] 43200 * URINALYSIS DIPSTICK (12/28/2017 5:18 PM) Component Value Ref Range Color,UA YELLOW Turbidity,UA CLEAR CLEAR-CLEAR Specific [place]-Urine 1.015 1.003 - 1.035 pH,UA 5.0 5.0 - 8.0 Protein,UA NEG NEG-NEG Glucose,UA 3+ (A) NEG-NEG Ketones,UA NEG NEG-NEG Bilirubin,UA NEG NEG-NEG Blood,UA 1+ (A) NEG-NEG Urobilinogen,UA NORMAL NORM-NORMAL Nitrite,UA NEG NEG-NEG Leukocytes,UA 2+ (A) NEG-NEG Urine Ascorbic Acid, UA NEG NEG-NEG Specimen Performing Laboratory Urine [facility] [address] [place] [address] 52684 * POC GLUCOSE (12/28/2017 1:50 PM) Component Value Ref Range Glucose, POC 281 (H) 70 - 100 MG/DL Specimen Performing Laboratory [facility] [address] [place] [address] 23728 * POC GLUCOSE (12/28/2017 12:01 PM) Component Value Ref Range Glucose, POC 343 (H) 70 - 100 MG/DL Specimen Performing Laboratory [facility] [address] [place] [address] 49369 * PATHOLOGY INTEROPERATIVE REPORT SCAN (12/28/2017 9:36 AM) Narrative Ordered by an unspecified provider. * PATHOLOGY INTEROPERATIVE REPORT SCAN (12/28/2017 9:36 AM) Narrative Ordered by an unspecified provider. * POC GLUCOSE (12/28/2017 7:54 AM) Component Value Ref Range Glucose, POC 187 (H) 70 - 100 MG/DL Specimen Performing Laboratory [facility] [address] [place] [address] 9[address] * ABDOMEN AP ONLY (12/28/2017 5:27 AM) [...] Specimen Performing Laboratory [facility] [address] [place] [address] * OSMOLALITY (12/28/2017 4:00 AM) Component Value Ref Range Osmolality 283 280 - 307 MOSMOL/KG Specimen Performing Laboratory MAIN LAB [address] [place] [address] * BASIC METABOLIC PANEL (12/28/2017 4:00 AM) [...] Specimen Performing Laboratory [facility]IN [facility] [address] [place] [address] * CBC AND DIFF (12/28/2017 4:00 AM) [...] Performing Laboratory Blood [facility] [address] [place] [address] * POC GLUCOSE (12/28/2017 3:27 AM) Component Value Ref Range Glucose, POC 168 (H) 70 - 100 MG/DL Specimen Performing Laboratory [facility] [address] [place] [address] * POC GLUCOSE (12/28/2017 3:14 AM) Component Value Ref Range Glucose, POC 167 (H) 70 - 100 MG/DL Specimen Performing Laboratory [facility] [address] [place] [address] 82088 * POC GLUCOSE (12/27/2017 9:28 PM) Component Value Ref Range Glucose, POC 234 (H) 70 - 100 MG/DL Specimen Performing Laboratory [facility] [address] [place] [address] 39289 * ABDOMEN AP ONLY (12/27/2017 7:52 PM) [...] the mid abdomen is included in the [id number]. Surgical defect in the left abdominal wall [...] the mid abdomen is included in the [id number]. Surgical defect in the left abdominal wall [...] 100 MG/DL Specimen Performing Laboratory MAIN LAB [address] [place] [address] 604[address] * POC GLUCOSE (12/27/2017 11:52 AM) Component Value Ref Range Glucose, POC 143 (H) 70 - 100 MG/DL Specimen Performing Laboratory MAIN LAB [address] [place] [address] 35610 * POC GLUCOSE (12/27/2017 7:39 AM) Component Value Ref Range Glucose, POC 193 (H) 70 - 100 MG/DL Specimen Performing Laboratory MAIN LAB [address] [place] [address] 62088 * VANCOMYCIN TROUGH (12/27/2017 5:33 AM) Component Value Ref Range Vancomycin Trough 23.2 (H) 10.0 - 20.0 MCG/ML Specimen Performing Laboratory Blood, venous - Blood MAIN LAB [address] [place] [address] 97995 * BASIC METABOLIC PANEL (12/27/2017 4:31 AM) [...] questions. Specimen Performing Laboratory Blood [facility]IN [facility] [address] [place] [address] * CBC AND DIFF (12/27/2017 4:31 AM) [...] - 0.20 K/UL Specimen Performing Laboratory Blood [facility] [address] [place], [place] [id number] * POC GLUCOSE (12/27/2017 2:35 AM) Component Value Ref Range Glucose, POC 176 (H) 70 - 100 MG/DL Specimen Performing Laboratory MAIN LAB [address] [place] [address] 5[address] * POC GLUCOSE (12/26/2017 9:25 PM) Component Value Ref Range Glucose, POC 304 (H) 70 - 100 MG/DL Specimen Performing Laboratory MAIN LAB [address] [place], [place] [id number] * POC GLUCOSE (12/26/2017 5:42 PM) Component Value Ref Range Glucose, POC 215 (H) 70 - 100 MG/DL Specimen Performing Laboratory MAIN LAB [address] [place], [place] [address] * POC GLUCOSE (12/26/2017 1:20 PM) Component Value Ref Range Glucose, POC 312 (H) 70 - 100 MG/DL Specimen Performing Laboratory [facility]IN [facility] [address] [place] [address] 71089 * POC GLUCOSE (12/26/2017 8:31 AM) Component Value Ref Range Glucose, POC 219 (H) 70 - 100 MG/DL Specimen Performing Laboratory MAIN LAB [address] [place] [address] 19517 * PHOSPHORUS (12/26/2017 4:01 AM) Component Value Ref Range Phosphorus 2.1 2.0 - 4.0 MG/DL Specimen Performing Laboratory MAIN LAB [address] [place] [address] 93194 * MAGNESIUM (12/26/2017 4:01 AM) Component Value Ref Range Magnesium 2.0 1.6 - 2.6 mg/dL Specimen Performing Laboratory MAIN LAB [address] [place] [address] 29921 * BASIC METABOLIC PANEL (12/26/2017 4:01 AM) [...] questions. Specimen Performing Laboratory Blood MAIN [facility] [address] [place], [place] [id number] * CBC AND DIFF (12/26/2017 4:01 AM) [...] - 0.20 K/UL Specimen Performing Laboratory Blood [facility] [address] [place] [address] 78726 * POC GLUCOSE (12/26/2017 1:28 AM) Component Value Ref Range Glucose, POC 217 (H) 70 - 100 MG/DL Specimen Performing Laboratory [facility] [address] [place] [address] 798[address] * POC GLUCOSE (12/25/2017 8:35 PM) Component Value Ref Range Glucose, POC 367 (H) 70 - 100 MG/DL Specimen Performing Laboratory [facility] [address] [place] [address] 01153 * POC GLUCOSE (12/25/2017 5:19 PM) Component Value Ref Range Glucose, POC 292 (H) 70 - 100 MG/DL Specimen Performing Laboratory [facility] [address] [place] [address] 03080 * POC GLUCOSE (12/25/2017 12:02 PM) Component Value Ref Range Glucose, POC 306 (H) 70 - 100 MG/DL Specimen Performing Laboratory [facility] [address] [place] [address] 230[address] * POC GLUCOSE (12/25/2017 9:01 AM) Component Value Ref Range Glucose, POC 261 (H) 70 - 100 MG/DL Specimen Performing Laboratory [facility] [address] [place] [address] * CT PELVIS WO CONTRAST (12/25/2017 8:47 [...] Specimen Performing Laboratory [facility] [address] [place] [address] * BASIC METABOLIC PANEL (12/25/2017 4:42 AM) [...] questions. Specimen Performing Laboratory Blood [facility]IN [facility] [address] [place] [address] * CBC AND DIFF (12/25/2017 4:42 AM) [...] K/UL Specimen Performing Laboratory Blood [facility] [address] [place] [address] * POC GLUCOSE (12/25/2017 3:24 AM) Component Value Ref Range Glucose, POC 200 (H) 70 - 100 MG/DL Specimen Performing Laboratory MAIN LAB [address] [place] [address] 900[address] * POC GLUCOSE (12/24/2017 8:18 PM) Component Value Ref Range Glucose, POC 263 (H) 70 - 100 MG/DL Specimen Performing Laboratory MAIN LAB [address] [place], [place] [id number] * DELIVER & TRANSFUSE RED BLOOD CELLS (INTRAOP ONLY) (12/24/2017 6:16 PM) Specimen Performing Laboratory Blood * POC GLUCOSE (12/24/2017 5:47 PM) Component Value Ref Range Glucose, POC 323 (H) 70 - 100 MG/DL Specimen Performing Laboratory [facility] [address] [place] [address] * POC GLUCOSE (12/24/2017 2:02 PM) Component Value Ref Range Glucose, POC 235 (H) 70 - 100 MG/DL Specimen Performing Laboratory [facility] [address] [place] [address] * CULTURE-BLOOD W/SENSITIVITY (12/24/2017 1:12 PM) Component Value Ref Range Battery Name BLOOD CULTURE Specimen Description BLOOD RIGHT ANTECUBITAL Special Requests NONE Culture NO GROWTH 5 DAYS Report Status FINAL 12/30/2017 Specimen Performing Laboratory Blood [facility]IN [facility] [address] [place] [address] * CHEST SINGLE VIEW (12/24/2017 10:34 AM) [...] M.D. on 12/24/2017 11:56 AM. Dictated by kSyler Bhandari M.D. on 12/24/2017 11:01 AM. * TYPE & CROSSMATCH (12/24/2017 9:40 AM) Component Value Ref Range Units Ordered 1 Crossmatch Expires 12/27/2017 Record Check FOUND ABO/RH(D) A POS Antibody Screen NEG Electronic Crossmatch YES Unit Number [id number] Blood Component Type RBC,ADSOL,LEUKO REDUCED Unit Division 0 Status OF Unit TRANSFUSED Transfusion Status OK TO TRANSFUSE Crossmatch Result COMPATIBLE,ELECTRONIC Specimen Performing Laboratory Blood [facility] [address] [place] [address] * POC GLUCOSE (12/24/2017 9:15 AM) Component Value Ref Range Glucose, POC 182 (H) 70 - 100 MG/DL Specimen Performing Laboratory [facility] [address] [place] [address] * CBC (12/24/2017 7:16 AM) Component Value [...] 7 - 11 FL Specimen Performing Laboratory [facility] [address] [place] [address] 9[address] * CBC (12/24/2017 4:34 AM) Component Value [...] 7 - 11 FL Specimen Performing Laboratory [facility] [address] [place] [address] 88[address] * BASIC METABOLIC PANEL (12/24/2017 4:34 AM) [...] questions. Specimen Performing Laboratory Blood [facility]IN [facility] [address] [place], [place] [id number] * POC GLUCOSE (12/23/2017 9:18 PM) Component Value Ref Range Glucose, POC 133 (H) 70 - 100 MG/DL Specimen Performing Laboratory MAIN LAB [address] [place] [address] 54[address] * POC GLUCOSE (12/23/2017 6:56 PM) Component Value Ref Range Glucose, POC 169 (H) 70 - 100 MG/DL Specimen Performing Laboratory MAIN LAB [address] [place] [address] 48989 * OSMOLALITY-URINE RANDOM (12/23/2017 6:14 PM) Component Value Ref Range Osmolality-Urine 298 50 - 1,400 MOS/KG Specimen Performing Laboratory Urine MAIN LAB [address] [place] [address] 29068 * SODIUM-URINE RANDOM (12/23/2017 6:14 PM) Component Value Ref Range Sodium, Random <10 MMOL/L Specimen Performing Laboratory Urine MAIN LAB [address] [place] [address] 94569 * LACTIC ACID (BG - RAPID LACTATE) (12/23/2017 1:42 PM) Component Value Ref Range Lactic Acid,BG 1.9 0.5 - 2.0 MMOL/L Specimen Performing Laboratory [facility] [address] [place] [address] 35018 * CULTURE-BLOOD W/SENSITIVITY (12/23/2017 1:42 PM) Component Value Ref Range Battery Name BLOOD CULTURE Specimen Description BLOOD LEFT ANTECUBITAL Special Requests NONE Culture NO GROWTH 5 DAYS Report Status FINAL 12/29/2017 Specimen Performing Laboratory Blood [facility] [address] [place] [address] 04561 * CULTURE-BLOOD W/SENSITIVITY (12/23/2017 1:05 PM) Component [...] not been recognized Specimen Performing Laboratory Blood [facility] [address] [place] [address] Organism Antibiotic Method Susceptibility Streptococcus Levofloxacin GRAF [...] 70 - 100 MG/DL Specimen Performing Laboratory [facility] [address] [place] [address] 39597 * C DIFFICILE BY PCR (12/23/2017 10:14 AM) Component Value Ref Range Battery Name C DIFFICILE PCR Specimen Description FECES Special Requests NONE C. Difficile Toxin B PCR Repeat testing not indicated on specimen negative by PCR within 7 days notified MAURO/Gaye 12.23.17/ Report Status FINAL 12/23/2017 Specimen Performing Laboratory Feces [facility] [address] [place] [address] 58647 * POC GLUCOSE (12/23/2017 9:35 AM) Component Value Ref Range Glucose, POC 165 (H) 70 - 100 MG/DL Specimen Performing Laboratory [facility] [address] [place] [address] 78525 * CBC (12/23/2017 7:29 AM) Component Value [...] FL Specimen Performing Laboratory Blood [facility]IN [facility] [address] [place] [address] 44383 * BASIC METABOLIC PANEL (12/23/2017 7:29 AM) [...] questions. Specimen Performing Laboratory Blood [facility] [address] [place] [address] 61847 * POC GLUCOSE (12/22/2017 9:17 PM) Component Value Ref Range Glucose, POC 303 (H) 70 - 100 MG/DL Specimen Performing Laboratory MAIN LAB [address] [place] [address] 19303 * POC GLUCOSE (12/22/2017 5:50 PM) Component Value Ref Range Glucose, POC 376 (H) 70 - 100 MG/DL Specimen Performing Laboratory [facility]IN LAB [address] [place] [address] 62699 * POC GLUCOSE (12/22/2017 12:39 PM) Component Value Ref Range Glucose, POC 227 (H) 70 - 100 MG/DL Specimen Performing Laboratory [facility] [address] [place] [address] 14127 * PREALBUMIN (12/22/2017 11:22 AM) Component Value Ref Range Prealbumin 4.0 (L) 17 - 34 MG/DL Specimen Performing Laboratory Blood [facility] [address] [place] [address] 46358 * POC GLUCOSE (12/22/2017 9:41 AM) Component Value Ref Range Glucose, POC 113 (H) 70 - 100 MG/DL Specimen Performing Laboratory [facility] [address] [place] [address] 74526 * ECG-SCAN (12/22/2017 8:10 AM) Narrative Ordered [...] - 8.0 G/DL Specimen Performing Laboratory Blood [facility] [address] [place] [address] 63989 * ALBUMIN (12/22/2017 4:13 AM) Component Value Ref Range Albumin 2.0 (L) 3.5 - 5.0 G/DL Specimen Performing Laboratory [facility] [address] [place] [address] 95980 * CBC (12/22/2017 4:13 AM) Component Value [...] FL Specimen Performing Laboratory Blood [facility] [address] [place] [address] 14752 * BASIC METABOLIC PANEL (12/22/2017 4:13 AM) [...] questions. Specimen Performing Laboratory [facility] [address] [place] [address] 51191 * POC GLUCOSE (12/21/2017 8:38 PM) Component Value Ref Range Glucose, POC 208 (H) 70 - 100 MG/DL Specimen Performing Laboratory MAIN LAB [address] [place] [address] 92796 * POC GLUCOSE (12/21/2017 5:10 PM) Component Value Ref Range Glucose, POC 219 (H) 70 - 100 MG/DL Specimen Performing Laboratory [facility]IN LAB [address] [place] [address] 78876 * POC GLUCOSE (12/21/2017 2:59 PM) Component Value Ref Range Glucose, POC 213 (H) 70 - 100 MG/DL Specimen Performing Laboratory [facility]IN LAB [address] [place] [address] 25219 * CHEST SINGLE VIEW (12/21/2017 12:34 PM) [...] Performing Laboratory Blood [facility] [address] [place] [address] * BASIC METABOLIC PANEL (12/21/2017 11:33 AM) [...] Pharmacist for questions. Specimen Performing Laboratory Blood [facility] [address] [place] [address] 96260 * CULTURE-URINE W/SENSITIVITY (12/21/2017 9:00 AM) Component Value Ref Range Battery Name URINE CULTURE Specimen Description URINE Special Requests NONE Culture >100,000 organisms/ml ARACELY SPECIES, NOT ALBICANS Report Status FINAL 12/22/2017 Specimen Performing Laboratory Urine [facility] [address] [place] [address] 60356 * URINALYSIS MICROSCOPIC REFLEX TO CULTURE (12/21/2017 [...] Budding Yeast PACKED Specimen Performing Laboratory Urine [facility] [address] [place] [address] 97182 * URINALYSIS DIPSTICK REFLEX TO CULTURE (12/21/2017 9:00 AM) Component Value Ref Range Color,UA YELLOW Turbidity,UA CLEAR CLEAR-CLEAR Specific [place]-Urine 1.003 1.003 - 1.035 pH,UA 7.0 5.0 - 8.0 Protein,UA NEG NEG-NEG Glucose,UA NEG NEG-NEG Ketones,UA NEG NEG-NEG Bilirubin,UA NEG NEG-NEG Blood,UA 1+ (A) NEG-NEG Urobilinogen,UA NORMAL NORM-NORMAL Nitrite,UA NEG NEG-NEG Leukocytes,UA 1+ (A) NEG-NEG Urine Ascorbic Acid, UA NEG NEG-NEG Specimen Performing Laboratory Urine MAIN LAB [address] [place] [address] 58693 * UA REFLEX CULTURE LABEL (12/21/2017 9:00 AM) Component Value Ref Range UA Reflex Culture LAB LABEL Specimen Performing Laboratory Urine [facility] [address] [place] [address] 12808 * OSMOLALITY-URINE RANDOM (12/21/2017 9:00 AM) Component Value Ref Range Osmolality-Urine 94 50 - 1,400 MOS/KG Specimen Performing Laboratory Urine MAIN LAB [address] [place] [address] 80112 * SODIUM-URINE RANDOM (12/21/2017 9:00 AM) Component Value Ref Range Sodium, Random <10 MMOL/L Specimen Performing Laboratory Urine MAIN LAB [address] [place] [address] 86335 * POC GLUCOSE (12/21/2017 8:50 AM) Component Value Ref Range Glucose, POC 136 (H) 70 - 100 MG/DL Specimen Performing Laboratory [facility] [address] [place] [address] 41790 * URIC ACID (12/21/2017 4:38 AM) Component Value Ref Range Uric Acid 3.3 2.0 - 7.0 MG/DL Specimen Performing Laboratory [facility] [address] [place] [address] 89254 * THYROID STIMULATING HORMONE-TSH (12/21/2017 4:38 AM) Component Value Ref Range TSH 2.150 0.35 - 5.00 MCU/ML Specimen Performing Laboratory [facility] [address] [place] [address] 53534 * OSMOLALITY (12/21/2017 4:38 AM) Component Value Ref Range Osmolality 258 (L) 280 - 307 MOSMOL/KG Specimen Performing Laboratory [facility] [address] [place] [address] 28947 * CORTISOL,RANDOM (12/21/2017 4:38 AM) Component Value Ref Range Cortisol, Random 15.5 5.0 - 20.0 MCG/DL Specimen Performing Laboratory [facility] [address] [place], [place] [id number] * CBC (12/21/2017 4:38 AM) Component Value [...] - 11 FL Specimen Performing Laboratory Blood [facility] [address] [place] [address] 55733 * BASIC METABOLIC PANEL (12/21/2017 4:38 AM) [...] Pharmacist for questions. Specimen Performing Laboratory Blood [facility] [address] [place] [address] * POC GLUCOSE (12/21/2017 2:54 AM) Component Value Ref Range Glucose, POC 157 (H) 70 - 100 MG/DL Specimen Performing Laboratory [facility] [address] [place] [address] 01984 * POC GLUCOSE (12/20/2017 9:27 PM) Component Value Ref Range Glucose, POC 263 (H) 70 - 100 MG/DL Specimen Performing Laboratory [facility] [address] [place], [place] [address] * POC GLUCOSE (12/20/2017 6:47 PM) Component Value Ref Range Glucose, POC 245 (H) 70 - 100 MG/DL Specimen Performing Laboratory [facility] [address] [place] [address] 07482 * C DIFFICILE BY PCR (12/20/2017 1:40 PM) Component Value Ref Range Battery Name C DIFFICILE PCR Specimen Description FECES Special Requests NONE C. Difficile Toxin B PCR NEGATIVE-wait 7 days to repeat test Report Status FINAL 12/20/2017 Specimen Performing Laboratory Feces [facility] [address] [place] [address] 46484 * POC GLUCOSE (12/20/2017 11:30 AM) Component Value Ref Range Glucose, POC 208 (H) 70 - 100 MG/DL Specimen Performing Laboratory [facility] [address] [place] [address] 49858 * POC GLUCOSE (12/20/2017 8:42 AM) Component Value Ref Range Glucose, POC 133 (H) 70 - 100 MG/DL Specimen Performing Laboratory [facility] [address] [place] [address] * POC GLUCOSE (12/20/2017 3:21 AM) Component Value Ref Range Glucose, POC 151 (H) 70 - 100 MG/DL Specimen Performing Laboratory [facility]IN LAB [address] [place] [address] 37905 * BASIC METABOLIC PANEL (12/20/2017 3:10 AM) [...] questions. Specimen Performing Laboratory Blood [facility] [address] [place] [address] 93980 * CBC (12/20/2017 3:10 AM) Component Value [...] FL Specimen Performing Laboratory Blood [facility] [address] [place] [address] 85253 * POC GLUCOSE (12/19/2017 9:46 PM) Component Value Ref Range Glucose, POC 151 (H) 70 - 100 MG/DL Specimen Performing Laboratory [facility]IN LAB [address] [place] [address] 56719 * POC GLUCOSE (12/19/2017 5:06 PM) Component Value Ref Range Glucose, POC 207 (H) 70 - 100 MG/DL Specimen Performing Laboratory MAIN LAB [address] [place] [address] 69791 * POC GLUCOSE (12/19/2017 11:56 AM) Component Value Ref Range Glucose, POC 153 (H) 70 - 100 MG/DL Specimen Performing Laboratory MAIN LAB [address] [place] [address] 81880 * POC GLUCOSE (12/19/2017 9:07 AM) Component Value Ref Range Glucose, POC 127 (H) 70 - 100 MG/DL Specimen Performing Laboratory MAIN LAB [address] [place] [address] 78921 * CBC (12/19/2017 3:05 AM) Component Value [...] - 11 FL Specimen Performing Laboratory Blood [facility] [address] [place] [address] 29235 * BASIC METABOLIC PANEL (12/19/2017 3:05 AM) [...] Pharmacist for questions. Specimen Performing Laboratory Blood [facility] [address] [place] [address] 19698 * IONIZED CALCIUM (12/19/2017 3:05 AM) Component Value Ref Range Ionized Calcium 1.07 1.0 - 1.3 MMOL/L Specimen Performing Laboratory Blood [facility] [address] [place] [address] 63875 * PHOSPHORUS (12/19/2017 3:05 AM) Component Value Ref Range Phosphorus 3.0 2.0 - 4.0 MG/DL Specimen Performing Laboratory Blood [facility] [address] [place], [place] [phone] * MAGNESIUM (12/19/2017 3:05 AM) Component Value Ref Range Magnesium 1.9 1.6 - 2.6 mg/dL Specimen Performing Laboratory Blood [facility] [address] [place], [place] [phone] * POC GLUCOSE (12/18/2017 9:00 PM) Component Value Ref Range Glucose, POC 97 70 - 100 MG/DL Specimen Performing Laboratory [facility] [address] [place] [address] 05959 * POC GLUCOSE (12/18/2017 4:38 PM) Component Value Ref Range Glucose, POC 173 (H) 70 - 100 MG/DL Specimen Performing Laboratory [facility] [address] [place] [address] 04307 * POC GLUCOSE (12/18/2017 12:00 PM) Component Value Ref Range Glucose, POC 129 (H) 70 - 100 MG/DL Specimen Performing Laboratory [facility] [address] [place] [address] 74682 * POC GLUCOSE (12/18/2017 8:45 AM) Component Value Ref Range Glucose, POC 107 (H) 70 - 100 MG/DL Specimen Performing Laboratory [facility] [address] [place] [address] 86199 * POC GLUCOSE (12/18/2017 3:08 AM) Component Value Ref Range Glucose, POC 132 (H) 70 - 100 MG/DL Specimen Performing Laboratory [facility] [address] [place] [address] * CBC (12/18/2017 3:07 AM) Component Value [...] Specimen Performing Laboratory Blood [facility] [address] [place] [address] 09157 * BASIC METABOLIC PANEL (12/18/2017 3:07 AM) [...] Performing Laboratory Blood [facility] [address] [place] [address] * IONIZED CALCIUM (12/18/2017 3:07 AM) Component Value Ref Range Ionized Calcium 1.12 1.0 - 1.3 MMOL/L Specimen Performing Laboratory Blood [facility] [address] [place] [address] * PHOSPHORUS (12/18/2017 3:07 AM) Component Value Ref Range Phosphorus 2.5 2.0 - 4.0 MG/DL Specimen Performing Laboratory Blood [facility] [address] [place] [address] 06845 * MAGNESIUM (12/18/2017 3:07 AM) Component Value Ref Range Magnesium 2.2 1.6 - 2.6 mg/dL Specimen Performing Laboratory Blood [facility] [address] [place] [address] 81944 * POC GLUCOSE (12/17/2017 8:27 PM) Component Value Ref Range Glucose, POC 154 (H) 70 - 100 MG/DL Specimen Performing Laboratory [facility] [address] [place] [address] 72068 * POC GLUCOSE (12/17/2017 5:31 PM) Component Value Ref Range Glucose, POC 197 (H) 70 - 100 MG/DL Specimen Performing Laboratory [facility] [address] [place] [address] 67933 * CBC (12/17/2017 5:31 PM) Component Value [...] - 11 FL Specimen Performing Laboratory Blood [facility] [address] [place], [place] [id number] * POC GLUCOSE (12/17/2017 12:05 PM) Component Value Ref Range Glucose, POC 136 (H) 70 - 100 MG/DL Specimen Performing Laboratory [facility] [address] [place] [address] 65042 * POC GLUCOSE (12/17/2017 8:17 AM) Component Value Ref Range Glucose, POC 123 (H) 70 - 100 MG/DL Specimen Performing Laboratory [facility] [address] [place], [place] [id number] * ABDOMEN AP ONLY (12/17/2017 7:10 AM) [...] 70 - 100 MG/DL Specimen Performing Laboratory [facility] [address] [place] [address] * CBC (12/17/2017 3:04 AM) Component Value [...] FL Specimen Performing Laboratory Blood [facility]IN [facility] [address] [place] [address] 95591 * BASIC METABOLIC PANEL (12/17/2017 3:04 AM) [...] questions. Specimen Performing Laboratory Blood [facility]IN [facility] [address] [place] [address] 84461 * IONIZED CALCIUM (12/17/2017 3:04 AM) Component Value Ref Range Ionized Calcium 1.13 1.0 - 1.3 MMOL/L Specimen Performing Laboratory Blood [facility]IN [facility] [address] [place] [address] 96253 * PHOSPHORUS (12/17/2017 3:04 AM) Component Value Ref Range Phosphorus 2.0 2.0 - 4.0 MG/DL Specimen Performing Laboratory Blood [facility]IN [facility] [address] [place] [address] 39472 * MAGNESIUM (12/17/2017 3:04 AM) Component Value Ref Range Magnesium 2.1 1.6 - 2.6 mg/dL Specimen Performing Laboratory Blood [facility]IN [facility] [address] [place] [address] 49105 * CBC (12/16/2017 10:00 PM) Component Value [...] FL Specimen Performing Laboratory Blood MAIN LAB [address] [place] [address] * POC GLUCOSE (12/16/2017 8:26 PM) Component Value Ref Range Glucose, POC 131 (H) 70 - 100 MG/DL Specimen Performing Laboratory MAIN LAB [address] [place] [address] * POC GLUCOSE (12/16/2017 5:01 PM) Component Value Ref Range Glucose, POC 165 (H) 70 - 100 MG/DL Specimen Performing Laboratory [facility] [address] [place], [place] [id number] * BASIC METABOLIC PANEL (12/16/2017 2:20 PM) [...] Pharmacist for questions. Specimen Performing Laboratory Blood [facility] [address] [place] [address] * CBC (12/16/2017 2:20 PM) Component Value [...] [place] Specimen Performing Laboratory Blood MAIN LAB [address] [place] [address] * POC GLUCOSE (12/16/2017 12:09 PM) Component Value Ref Range Glucose, POC 181 (H) 70 - 100 MG/DL Specimen Performing Laboratory MAIN LAB [address] [place], [place] [id number] * POC GLUCOSE (12/16/2017 9:39 AM) Component Value Ref Range Glucose, POC 171 (H) 70 - 100 MG/DL Specimen Performing Laboratory [facility] [address] [place] [address] * BLOOD GASES, ARTERIAL (12/16/2017 3:27 AM) Component Value Ref Range pH-Arterial 7.33 (L) 7.35 - 7.45 pCO2-Arterial 41 35 - 45 MMHG pO2-Arterial 84 80 - 100 MMHG Base Deficit-Arterial 4.2 MMOL/L O2 Sat-Arterial 97.0 95 - 99 % Mkbzzjoqxnj-WBJ-Lzy 20.9 (L) 21 - 28 MMOL/L Specimen Performing Laboratory Blood, arterial - Blood [facility] [address] [place] [address] * POC GLUCOSE (12/16/2017 3:06 AM) Component Value Ref Range Glucose, POC 136 (H) 70 - 100 MG/DL Specimen Performing Laboratory [facility] [address] [place] [address] * CBC (12/16/2017 3:05 AM) Component Value [...] Specimen Performing Laboratory Blood [facility] [address] [place] [address] * BASIC METABOLIC PANEL (12/16/2017 3:05 AM) [...] questions. Specimen Performing Laboratory Blood MAIN LAB [address] [place] [address] * IONIZED CALCIUM (12/16/2017 3:05 AM) Component Value Ref Range Ionized Calcium 1.16 1.0 - 1.3 MMOL/L Specimen Performing Laboratory Blood MAIN LAB [address] [place] [address] * PHOSPHORUS (12/16/2017 3:05 AM) Component Value Ref Range Phosphorus 3.6 2.0 - 4.0 MG/DL Specimen Performing Laboratory Blood MAIN LAB [address] [place] [address] * MAGNESIUM (12/16/2017 3:05 AM) Component Value Ref Range Magnesium 1.8 1.6 - 2.6 mg/dL Specimen Performing Laboratory Blood MAIN LAB [address] [place] [address] * PHOSPHORUS (12/15/2017 10:00 PM) Component Value Ref Range Phosphorus 4.1 (H) 2.0 - 4.0 MG/DL Specimen Performing Laboratory Blood MAIN LAB [address] [place] [address] * MAGNESIUM (12/15/2017 10:00 PM) Component Value Ref Range Magnesium 2.0 1.6 - 2.6 mg/dL Specimen Performing Laboratory Blood MAIN LAB [address] [place] [address] * TEG WITH KAOLIN (12/15/2017 10:00 PM) [...] Specimen Performing Laboratory Blood MAIN LAB [address] [place] [address] * CBC (12/15/2017 10:00 PM) Component Value [...] [place] Specimen Performing Laboratory Blood MAIN LAB [address] [place], [place] [id number] * IONIZED CALCIUM (12/15/2017 10:00 PM) Component Value Ref Range Ionized Calcium 1.23 1.0 - 1.3 MMOL/L Specimen Performing Laboratory Blood MAIN LAB [address] [place], [place] [id number] * BLOOD GASES, ARTERIAL (12/15/2017 10:00 PM) Component Value Ref Range pH-Arterial 7.31 (L) 7.35 - 7.45 pCO2-Arterial 38 35 - 45 MMHG pO2-Arterial 95 80 - 100 MMHG Base Deficit-Arterial 6.4 MMOL/L O2 Sat-Arterial 97.6 95 - 99 % Wwivenblzfx-VKP-Dfn 19.2 (L) 21 - 28 MMOL/L Specimen Performing Laboratory Blood, arterial - Blood MAIN LAB [address] [place], [place] [id number] * POC GLUCOSE (12/15/2017 8:35 PM) Component Value Ref Range Glucose, POC 272 (H) 70 - 100 MG/DL Specimen Performing Laboratory MAIN LAB [address] [place], [place] [id number] * CBC (12/15/2017 7:26 PM) Component Value [...] Specimen Performing Laboratory Blood MAIN LAB [address] [place] [address] * TRANSFUSE RBC'S BLEEDING PT OR EXCHANGE TRANSFUSION (12/15/2017 6:54 PM) Specimen Performing Laboratory Blood * POC GLUCOSE (12/15/2017 5:32 PM) Component Value Ref Range Glucose, POC 255 (H) 70 - 100 MG/DL Specimen Performing Laboratory [facility]IN [facility] [address] [place] [address] * TEG WITH KAOLIN (12/15/2017 3:25 PM) [...] Specimen Performing Laboratory Blood MAIN LAB [address] [place] [address] * CBC (12/15/2017 1:45 PM) Component Value [...] [place] Specimen Performing Laboratory Blood MAIN LAB [address] [place] [address] * POC GLUCOSE (12/15/2017 8:54 AM) Component Value Ref Range Glucose, POC 177 (H) 70 - 100 MG/DL Specimen Performing Laboratory [facility] [address] [place] [address] * BLOOD GASES, ARTERIAL (12/15/2017 8:45 AM) Component Value Ref Range pH-Arterial 7.36 7.35 - 7.45 pCO2-Arterial 22 (L) 35 - 45 MMHG pO2-Arterial 136 (H) 80 - 100 MMHG Base Deficit-Arterial 12.5 MMOL/L O2 Sat-Arterial 99.4 (H) 95 - 99 % Fysttkbaems-CAQ-Dpt 14.5 (L) 21 - 28 MMOL/L Specimen Performing Laboratory Blood, arterial - Blood [facility] [address] [place] [address] * POC GLUCOSE (12/15/2017 6:45 AM) Component Value Ref Range Glucose, POC 206 (H) 70 - 100 MG/DL Specimen Performing Laboratory [facility] [address] [place], [place] [id number] * CBC (12/15/2017 5:40 AM) Component Value [...] Specimen Performing Laboratory Blood [facility] [address] [place] [address] * BASIC METABOLIC PANEL (12/15/2017 4:40 AM) [...] questions. Specimen Performing Laboratory Blood MAIN LAB [address] [place] [address] * IONIZED CALCIUM (12/15/2017 4:40 AM) Component Value Ref Range Ionized Calcium 1.11 1.0 - 1.3 MMOL/L Specimen Performing Laboratory Blood MAIN LAB [address] [place] [address] * PHOSPHORUS (12/15/2017 4:40 AM) Component Value Ref Range Phosphorus 3.2 2.0 - 4.0 MG/DL Specimen Performing Laboratory Blood MAIN LAB [address] [place] [address] * MAGNESIUM (12/15/2017 4:40 AM) Component Value Ref Range Magnesium 2.0 1.6 - 2.6 mg/dL Specimen Performing Laboratory Blood MAIN LAB [address] [place] [address] * LACTIC ACID(LACTATE) (12/14/2017 11:20 PM) Component Value Ref Range Lactic Acid 0.8 0.5 - 2.0 MMOL/L Specimen Performing Laboratory Blood MAIN LAB [address] [place] [address] 0[address] * BLOOD GASES, ARTERIAL (12/14/2017 11:20 PM) Component Value Ref Range pH-Arterial 7.34 (L) 7.35 - 7.45 pCO2-Arterial 34 (L) 35 - 45 MMHG pO2-Arterial 77 (L) 80 - 100 MMHG Base Deficit-Arterial 7.1 MMOL/L O2 Sat-Arterial 95.3 95 - 99 % Ttjgfofbrlu-OES-Njm 18.6 (L) 21 - 28 MMOL/L Specimen Performing Laboratory Blood, arterial - Blood MAIN LAB [address] [place], [place] [id number] * PHOSPHORUS (12/14/2017 11:20 PM) Component Value Ref Range Phosphorus 3.5 2.0 - 4.0 MG/DL Specimen Performing Laboratory Blood MAIN LAB [address] [place], [place] [id number] * MAGNESIUM (12/14/2017 11:20 PM) Component Value Ref Range Magnesium 2.1 1.6 - 2.6 mg/dL Specimen Performing Laboratory Blood MAIN LAB [address] [place], [place] [id number] * BASIC METABOLIC PANEL (12/14/2017 11:20 PM) [...] questions. Specimen Performing Laboratory Blood MAIN LAB [address] [place], [place] [id number] * CBC (12/14/2017 11:20 PM) Component Value [...] [place] Specimen Performing Laboratory Blood MAIN LAB [address] [place] [address] * POC GLUCOSE (12/14/2017 9:22 PM) Component Value Ref Range Glucose, POC 199 (H) 70 - 100 MG/DL Specimen Performing Laboratory MAIN LAB [address] [place] [address] * CBC AND DIFF (12/14/2017 6:42 PM) [...] K/UL Specimen Performing Laboratory Blood MAIN LAB [address] [place] [address] 244[address] * PHOSPHORUS (12/14/2017 6:42 PM) Component Value Ref Range Phosphorus 4.0 2.0 - 4.0 MG/DL Specimen Performing Laboratory Blood MAIN LAB [address] [place] [address] 6[address] * MAGNESIUM (12/14/2017 6:42 PM) Component Value Ref Range Magnesium 2.0 1.6 - 2.6 mg/dL Specimen Performing Laboratory Blood MAIN LAB [address] [place] [address] * BASIC METABOLIC PANEL (12/14/2017 6:42 PM) [...] questions. Specimen Performing Laboratory Blood MAIN LAB [address] [place] [address] * LACTIC ACID(LACTATE) (12/14/2017 6:42 PM) Component Value Ref Range Lactic Acid 1.5 0.5 - 2.0 MMOL/L Specimen Performing Laboratory Blood MAIN LAB [address] [place] [address] 135[address] * PTT (APTT) (12/14/2017 6:42 PM) Component Value Ref Range APTT 23.7 21.0 - 39.0 SEC Specimen Performing Laboratory Blood MAIN LAB [address] [place] [address] * BLOOD GASES, ARTERIAL (12/14/2017 6:41 PM) Component Value Ref Range pH-Arterial 7.32 (L) 7.35 - 7.45 pCO2-Arterial 33 (L) 35 - 45 MMHG pO2-Arterial 89 80 - 100 MMHG Base Deficit-Arterial 8.2 MMOL/L O2 Sat-Arterial 97.0 95 - 99 % Nbrvijsrpsr-UAU-Tdq 17.8 (L) 21 - 28 MMOL/L Specimen Performing Laboratory Blood, arterial - Blood [facility]IN [facility] [address] [place] [address] * IONIZED CALCIUM (12/14/2017 6:41 PM) Component Value Ref Range Ionized Calcium 1.14 1.0 - 1.3 MMOL/L Specimen Performing Laboratory Blood MAIN LAB [address] [place] [address] * POTASSIUM, BG (12/14/2017 4:51 PM) Component Value Ref Range Potassium 4.9 3.5 - 5.1 MMOL/L Specimen Performing Laboratory Blood MAIN LAB [address] [place] [address] * SODIUM,BG (12/14/2017 4:51 PM) Component Value Ref Range Sodium 139 137 - 147 MMOL/L Specimen Performing Laboratory Blood MAIN LAB [address] [place] [address] * IONIZED CALCIUM,BG (12/14/2017 4:51 PM) Component Value Ref Range Ionized Calcium 1.12 1.0 - 1.3 MMOL/L Specimen Performing Laboratory Blood MAIN LAB [address] [place] [address] * GLUCOSE,BG (12/14/2017 4:51 PM) Component Value Ref Range Glucose 263 (H) 70 - 100 MG/DL Specimen Performing Laboratory Blood MAIN LAB [address] [place] [address] * BLOOD GASES, ARTERIAL (12/14/2017 4:51 PM) Component Value Ref Range pH-Arterial 7.32 (L) 7.35 - 7.45 pCO2-Arterial 37 35 - 45 MMHG pO2-Arterial 159 (H) 80 - 100 MMHG Base Deficit-Arterial 6.4 MMOL/L O2 Sat-Arterial 99.4 (H) 95 - 99 % Csinkzxshdf-WTD-Jsa 19.2 (L) 21 - 28 MMOL/L Specimen Performing Laboratory Blood, arterial - Blood MAIN LAB [address] [place] [address] * HEMOGLOBIN & HEMATOCRIT, BG (12/14/2017 4:51 PM) Component Value Ref Range Hemoglobin BG 12.0 12.0 - 15.0 GM/DL Hematocrit BG 37.1 36 - 45 % Specimen Performing Laboratory Blood MAIN LAB [address] [place] [address] * DELIVER & TRANSFUSE RED BLOOD CELLS [...] MMOL/L Specimen Performing Laboratory Blood MAIN LAB [address] [place] [address] * SODIUM,BG (12/14/2017 3:45 PM) Component Value Ref Range Sodium 138 137 - 147 MMOL/L Specimen Performing Laboratory Blood MAIN LAB [address] [place] [address] * IONIZED CALCIUM,BG (12/14/2017 3:45 PM) Component Value Ref Range Ionized Calcium 1.12 1.0 - 1.3 MMOL/L Specimen Performing Laboratory Blood [facility] [address] [place] [address] * GLUCOSE,BG (12/14/2017 3:45 PM) Component Value Ref Range Glucose 278 (H) 70 - 100 MG/DL Specimen Performing Laboratory Blood [facility] [address] [place] [address] * BLOOD GASES, ARTERIAL (12/14/2017 3:45 PM) Component Value Ref Range pH-Arterial 7.30 (L) 7.35 - 7.45 pCO2-Arterial 45 35 - 45 MMHG pO2-Arterial 143 (H) 80 - 100 MMHG Base Deficit-Arterial 4.3 MMOL/L O2 Sat-Arterial 99.0 95 - 99 % Fysbbgbacws-IRW-Igv 20.8 (L) 21 - 28 MMOL/L Specimen Performing Laboratory Blood, arterial - Blood [facility] [address] [place] [address] * HEMOGLOBIN & HEMATOCRIT, BG (12/14/2017 3:45 PM) Component Value Ref Range Hemoglobin BG 9.7 (L) 12.0 - 15.0 GM/DL Hematocrit BG 30.2 (L) 36 - 45 % Specimen Performing Laboratory Blood [facility] [address] [place] [address] * DELIVER & TRANSFUSE RED BLOOD CELLS (INTRAOP ONLY) (12/14/2017 3:31 PM) Specimen Performing Laboratory Blood * LACTIC ACID (BG - RAPID LACTATE) (12/14/2017 2:34 PM) Component Value Ref Range Lactic Acid,BG 0.8 0.5 - 2.0 MMOL/L Specimen Performing Laboratory Blood MAIN LAB [address] [place] [address] * POTASSIUM, BG (12/14/2017 2:34 PM) Component Value Ref Range Potassium 4.4 3.5 - 5.1 MMOL/L Specimen Performing Laboratory Blood MAIN LAB [address] [place] [address] * SODIUM,BG (12/14/2017 2:34 PM) Component Value Ref Range Sodium 137 137 - 147 MMOL/L Specimen Performing Laboratory Blood MAIN LAB [address] [place] [address] * IONIZED CALCIUM,BG (12/14/2017 2:34 PM) Component Value Ref Range Ionized Calcium 1.12 1.0 - 1.3 MMOL/L Specimen Performing Laboratory Blood [facility] [address] [place] [address] * GLUCOSE,BG (12/14/2017 2:34 PM) Component Value Ref Range Glucose 244 (H) 70 - 100 MG/DL Specimen Performing Laboratory Blood [facility] [address] [place] [address] * BLOOD GASES, ARTERIAL (12/14/2017 2:34 PM) Component Value Ref Range pH-Arterial 7.34 (L) 7.35 - 7.45 pCO2-Arterial 43 35 - 45 MMHG pO2-Arterial 140 (H) 80 - 100 MMHG Base Deficit-Arterial 2.5 MMOL/L O2 Sat-Arterial 99.1 (H) 95 - 99 % Tcadydztnpi-JXO-Tyt 22.4 21 - 28 MMOL/L Specimen Performing Laboratory Blood, arterial - Blood [facility] [address] [place], [place] [id number] * HEMOGLOBIN & HEMATOCRIT, BG (12/14/2017 2:34 PM) Component Value Ref Range Hemoglobin BG 8.5 (L) 12.0 - 15.0 GM/DL Hematocrit BG 26.5 (L) 36 - 45 % Specimen Performing Laboratory Blood [facility] [address] [place] [address] * LACTIC ACID (BG - RAPID LACTATE) (12/14/2017 1:25 PM) Component Value Ref Range Lactic Acid,BG 1.0 0.5 - 2.0 MMOL/L Specimen Performing Laboratory MAIN LAB [address] [place], [place] [id number] * POTASSIUM, BG (12/14/2017 1:25 PM) Component Value Ref Range Potassium 4.5 3.5 - 5.1 MMOL/L Specimen Performing Laboratory Blood MAIN LAB [address] [place] [address] * SODIUM,BG (12/14/2017 1:25 PM) Component Value Ref Range Sodium 139 137 - 147 MMOL/L Specimen Performing Laboratory Blood MAIN LAB [address] [place] [address] * IONIZED CALCIUM,BG (12/14/2017 1:25 PM) Component Value Ref Range Ionized Calcium 1.13 1.0 - 1.3 MMOL/L Specimen Performing Laboratory Blood MAIN LAB [address] [place] [address]24[address] * GLUCOSE,BG (12/14/2017 1:25 PM) Component Value Ref Range Glucose 236 (H) 70 - 100 MG/DL Specimen Performing Laboratory Blood MAIN LAB [address] [place] [address] * BLOOD GASES, ARTERIAL (12/14/2017 1:25 PM) Component Value Ref Range pH-Arterial 7.35 7.35 - 7.45 pCO2-Arterial 42 35 - 45 MMHG pO2-Arterial 146 (H) 80 - 100 MMHG Base Deficit-Arterial 2.4 MMOL/L O2 Sat-Arterial 99.2 (H) 95 - 99 % Jfvbkuuhmgw-ZNH-Aey 22.4 21 - 28 MMOL/L Specimen Performing Laboratory Blood, arterial - Blood MAIN LAB [address] [place] [address] 080[address] * HEMOGLOBIN & HEMATOCRIT, BG (12/14/2017 1:25 PM) Component Value Ref Range Hemoglobin BG 9.2 (L) 12.0 - 15.0 GM/DL Hematocrit BG 28.6 (L) 36 - 45 % Specimen Performing Laboratory Blood MAIN LAB [address] [place] [address] 58493 * POTASSIUM, BG (12/14/2017 11:44 AM) Component Value Ref Range Potassium 4.6 3.5 - 5.1 MMOL/L Specimen Performing Laboratory Blood MAIN LAB [address] [place] [address] 52299 * SODIUM,BG (12/14/2017 11:44 AM) Component Value Ref Range Sodium 140 137 - 147 MMOL/L Specimen Performing Laboratory Blood MAIN LAB [address] [place] [address] * IONIZED CALCIUM,BG (12/14/2017 11:44 AM) Component Value Ref Range Ionized Calcium 1.17 1.0 - 1.3 MMOL/L Specimen Performing Laboratory Blood MAIN LAB [address] [place] [address] * GLUCOSE,BG (12/14/2017 11:44 AM) Component Value Ref Range Glucose 241 (H) 70 - 100 MG/DL Specimen Performing Laboratory Blood MAIN LAB [address] [place] [address] * BLOOD GASES, ARTERIAL (12/14/2017 11:44 AM) Component Value Ref Range pH-Arterial 7.37 7.35 - 7.45 pCO2-Arterial 43 35 - 45 MMHG pO2-Arterial 127 (H) 80 - 100 MMHG Base Deficit-Arterial 0.7 MMOL/L O2 Sat-Arterial 98.8 95 - 99 % Bheusbzmosx-MHL-Xwe 23.8 21 - 28 MMOL/L Specimen Performing Laboratory Blood, arterial - Blood MAIN LAB [address] [place] [address] * HEMOGLOBIN & HEMATOCRIT, BG (12/14/2017 11:44 AM) Component Value Ref Range Hemoglobin BG 10.0 (L) 12.0 - 15.0 GM/DL Hematocrit BG 31.0 (L) 36 - 45 % Specimen Performing Laboratory Blood MAIN LAB [address] [place] [address] * SURGICAL PATHOLOGY (12/14/2017 10:23 AM) Component Value Ref Range PATHOLOGY REPORT [facility] [email or web address] Department of Pathology and Laboratory Medicine [address] [place] [address] Surgical Pathology Office:[phone]:[phone] SURGICAL PATHOLOGY REPORT NAME: BEATA KAISER SURG PATH #: [id number] MR #: [id number] SPECIMEN CLASS: SR BILLING #: [id number] ALT ID #:LOCATION: [id number] DATE OF PROCEDURE: [...] cm aggregate of gallardo-pink soft tissue fragments. [employer] sections of the specimen are submitted in [...] submitted to Biospecimen Repository Core Facility: No [employer] Director sections of the specimen are submitted as follows: H1 [employer] Director section of skin scar and surrounding gallardo purple bruised-appearing skin. H2 [employer] proximal skin, soft tissue and muscle margin. H3-H6 [employer] sections from the hemorrhagic cavity within the subcutaneous and adipose tissue. H7-H10 Tumor within muscle and soft tissue. H11 Bone margin at pubic symphysis (placed in decalcification solution prior to processing). W81-L69Lgkic within pubis bone adjacent to acetabulum (H12 is placed in decalcification solution prior to processing). H 14-O10Aaolm within the ilium (H15 is placed in decalcification solution prior to processing). H16 Tumor two gluteus medius. T93-R24Xqpcxetycv real estate representative sections throughout the tumor.(brm) I. Received in formalin labeled with the patient's name and "additional tissue, left hemipelvectomy" is a 5.9 x 4.2 x 1.5 cm aggregate of gallardo-pink soft tissue fragments and bone. These tissue fragments are not oriented. [employer] sections are submitted in cassettes I1 and I2 (I2 is placed in decalcification solution prior to processing). Also in the container is a 9.5 x 7.2 x 3.1 cm red-brown portion of muscle and attached yellow adipose tissue. The specimen is serially sectioned to reveal red-brown unremarkable muscle and yellow unremarkable adipose tissue. [employer] sections from throughout the specimen are submitted [...] #2", biopsy: Microscopic focus suspicious for chondrosarcoma. [id number], vein contents, "vein contents", biopsy: Chondrosarcoma G1FS, [...] questions. Specimen Performing Laboratory Blood MAIN LAB [address] [place] [address] * CBC (12/14/2017 6:12 AM) Component Value [...] [place] Specimen Performing Laboratory Blood MAIN LAB [address] [place] [address]197 * PTT (APTT) (12/14/2017 6:12 AM) Component Value Ref Range APTT 29.3 21.0 - 39.0 SEC Specimen Performing Laboratory Blood MAIN LAB [address] [place], [place] [id number] * PTT (APTT) (12/13/2017 8:49 PM) Component Value Ref Range APTT 95.1 (H) 21.0 - 39.0 SEC Specimen Performing Laboratory Blood MAIN LAB [address] [place], [place] [id number] * PTT (APTT) (12/13/2017 11:30 AM) Component Value Ref Range APTT 38.7 21.0 - 39.0 SEC Specimen Performing Laboratory Blood MAIN LAB [address] [place] [address]88 * TYPE & CROSSMATCH (12/13/2017 11:17 AM) Component Value Ref Range Units Ordered 8 Crossmatch Expires 12/16/2017 Record Check FOUND ABO/RH(D) A POS Antibody Screen NEG Electronic Crossmatch YES Unit Number [id number] Blood Component Type RBC,ADSOL,LEUKO REDUCED Unit Division 0 Status OF Unit TRANSFUSED Transfusion Status OK TO TRANSFUSE Crossmatch Result COMPATIBLE,ELECTRONIC Unit Number [id number] Blood Component Type RBC,ADSOL,LEUKO REDUCED Unit Division 0 Status OF Unit TRANSFUSED Transfusion Status OK TO TRANSFUSE Crossmatch Result COMPATIBLE,ELECTRONIC Unit Number [id number] Blood Component Type RBC,ADSOL,LEUKO REDUCED Unit Division 0 Status OF Unit TRANSFUSED Transfusion Status OK TO TRANSFUSE Crossmatch Result COMPATIBLE,ELECTRONIC Unit Number [id number] Blood Component Type RBC,ADSOL,LEUKO REDUCED Unit Division 0 Status OF Unit REL FROM ALLOC Transfusion Status OK TO TRANSFUSE Crossmatch Result COMPATIBLE,ELECTRONIC Unit Number [id number] Blood Component Type RBC,ADSOL,LEUKO REDUCED Unit Division 0 Status OF Unit TRANSFUSED Transfusion Status OK TO TRANSFUSE Crossmatch Result COMPATIBLE,ELECTRONIC Unit Number [id number] Blood Component Type RBC,ADSOL,LEUKO REDUCED Unit Division 0 Status OF Unit REL FROM ALLOC Transfusion Status OK TO TRANSFUSE Crossmatch Result COMPATIBLE,ELECTRONIC Unit Number [id number] Blood Component Type RBC,ADSOL,LEUKO REDUCED Unit Division 0 Status OF Unit TRANSFUSED Transfusion Status OK TO TRANSFUSE Crossmatch Result COMPATIBLE,ELECTRONIC Unit Number [id number] Blood Component Type RBC,ADSOL,LEUKO REDUCED,2ND CONT. Unit Division 0 Status OF Unit REL FROM ALLOC Transfusion Status OK TO TRANSFUSE Crossmatch Result COMPATIBLE,ELECTRONIC Unit Number [id number] Blood Component Type RBC,ADSOL,LEUKO REDUCED,2ND CONT. Unit Division 0 Status OF Unit TRANSFUSED Transfusion Status OK TO TRANSFUSE Crossmatch Result COMPATIBLE,ELECTRONIC Specimen Performing Laboratory Blood [facility] [address] [place] [address] * BASIC METABOLIC PANEL (12/13/2017 11:17 AM) [...] Performing Laboratory Blood [facility] [address] [place] [address] * CBC (12/13/2017 11:17 AM) Component Value [...] Specimen Performing Laboratory Blood MAIN LAB [address] [place] [address] in this encounter Visit Diagnoses Diagnosis Pelvic [...] 1 capsule 1 capsule, Feeding Tube, NEEDED (PERSON INVESTIGATOR FROM RX), Starting 12/27/17 at 1631, Until [...]
[2018-03-06 23:55] VITALS: BP 124/80
--- OUTSIDE RECORDS SUMMARY | 2018-03-06 23:55 | XMS REPORT | Encounter Summary ---
Author Author [facility] Organization [facility] Address Unknown Phone Unavailable Care Team Providers Care Data Input Clerk Name Role Phone Della Cuellar MD PCP Reason for Visit * Auth/Cert Status Reason Specialty Diagnoses / Referred By Referred To Procedures Contact Contact Diagnoses Pelvic mass Pelvic mass [R19.00] Pelvic mass in female P rocedures PA INTERPELVIABDOMI NAL AMPUTATION CHEY PELVECTOMY Encounter Details Date Type Department Care Team Description 12/15/2017 Anesthesia SICU Gagan Mckenna, DO Event [address] [place] [address] [place] [address] [phone] Anesthesia Record Procedure Name Responsible Anesthesia Start [...] (Comment) (Rehab 03/02/18 1354 by Allen, Single 1255); Cayla Crowell RN-CRNI timeout Cayla Villa VAT; [...]
--- OUTSIDE RECORDS SUMMARY | 2018-03-06 23:55 | XMS REPORT | Encounter Summary ---
Author Author [facility] Organization [facility] Address Unknown Phone Unavailable Care Team Providers Care Locator Name Role Phone Della Cuellar MD PCP Encounter Details Date Type Department Care Team Description 12/25/2017 Procedure Pass Ortho/Fam Med [address] [place] [address] Social History Tobacco Use Types Packs/Day Years [...]
--- OUTSIDE RECORDS SUMMARY | 2018-03-06 23:55 | XMS REPORT | Encounter Summary ---
Author Author [facility] Organization [facility] Address Unknown Phone Unavailable Care Team Providers Care Distribution Center Administrator Name Role Phone Della Cuellar MD PCP Reason for Referral * Radiology Services Status Reason Specialty Diagnoses / Referred By Referred To Procedures Contact Contact No Auth Needed Radiology Diagnoses [facility] Purcell [facility] Radiology Injury of MD Spencer [address] bladder, sequela [address] 2ND FLOOR rocedures [place] [address] [place], [place] [address] VOIDING [phone] Phone: Encounter Details Date Type Department Care Team Description 12/15/2017 Orders Only [facility] Spencer Purcell MD Injury of bladder, Physicians - Urology [address] sequela (Primary Dx) 2ND FLOOR POD A [place] [address] [place] [address] OFFICE BLDG [phone] [place] [address] Social History Tobacco Use Types [...]
--- OUTSIDE RECORDS SUMMARY | 2018-03-06 23:55 | XMS REPORT | Encounter Summary ---
Author Author [facility] Organization [facility] Address Unknown Phone Unavailable Care Team Providers Care Customer Supply Coordinator Name Role Phone Della Cuellar MD PCP Encounter Details Date Type Department Care Team Description 12/14/2017 Procedure Pass Main Operating Room [address] [place] [address] Social History Tobacco Use Types Packs/Day Years [...]
--- OUTSIDE RECORDS SUMMARY | 2018-03-06 23:55 | XMS REPORT | Encounter Summary ---
Author Author [facility] Organization [facility] Address Unknown Phone Unavailable Care Team Providers Care Integration Specialist Name Role Phone Della Cuellar MD PCP Encounter Details Date Type Department Care Team Description 12/14/2017 Procedure Pass Main Operating Room [address] [place] [address] Social History Tobacco Use Types Packs/Day Years [...]
--- OUTSIDE RECORDS SUMMARY | 2018-03-06 23:55 | XMS REPORT | Encounter Summary ---
Author Author [facility] Organization [facility] Address Unknown Phone Unavailable Care Team Providers Care Tawer Name Role Phone Della Cuellar MD PCP Reason for Visit * Auth/Cert Status Reason Specialty Diagnoses / Referred By Referred To Procedures Contact Contact Diagnoses Pelvic mass Pelvic mass [R19.00] Pelvic mass in female P rocedures [place] INTERPELVIABDOMI NAL AMPUTATION CHEY PELVECTOMY Encounter Details Date Type Department Care Team Description 12/30/2017 Anesthesia [place] Operating Room Price M[place]artney, SRNA Event [address] [place] [address] Anesthesia Record Procedure Name Responsible Anesthesia Start [...] for Incision; Carlos Manuel Rosales Drain, Sutures, [place], [place] Pressure xeroform, 4x4's, and tegaderm. Injuries) [...] blood products. Plan discussed with: anesthesiologist and [employer]BER OPS PLANNER. in this encounter Miscellaneous Notes * Addendum Note - Noé Sullivan MD - 12/30/2017 2:45 PM CDT Formatting of this note may be different from the original. Addendum created 12/30/17 [id number] by Noé Sullivan MD Anesthesia Staff edited [...]
[2018-03-07] VITALS (19 sets, daily range): BP systolic 106–139; BP diastolic 56–82
--- OUTSIDE RECORDS SUMMARY | 2018-03-07 00:02 | XMS REPORT | Encounter Summary ---
Author Author [facility] Organization [facility] Address Unknown Phone Unavailable Care Team Providers Care Bridge Contractor Name Role Phone Della Cuellar MD PCP Reason for Visit * Auth/Cert Status Reason Specialty Diagnoses / Referred By Referred To Procedures Contact Contact Diagnoses Pelvic mass Pelvic mass [R19.00] Pelvic mass in female P rocedures [place] INTERPELVIABDOMI NAL AMPUTATION [facility]IL PELVECTOMY Encounter Details Date Type Department Care Team Description 12/14/2017 Surgery Main Operating Room Tamiko Luther MD [facility] [address] [place] [address] [place] [address] [place] [address] [phone] Social History Tobacco Use Types Packs/Day Years [...] 4:30 PM) Call the Orthopedic clinic at [phone] AFTER BUSINESS HOURS AND WEEKENDS Call [phone] and ask the picker machine operator to page the on-call Orthopedic Resident. Discharging attending physician: TAMIKO LUTHER [[id number]] Diabetic Diet Recommend high protein diet for [...] home, you can call a dietitian at [phone]. Tube Feeding Formula: Isosource 1.5 Schedule: Continuous [...] Wednesday wound vac changes. Tunneled Catheter Line Longterm Care Instructions: The bandage over the catheter [...] Take 1 capsule via feeding tube PRN (Exchange Teller from Rx) ( Occluded Feeding Tube). PRESCRIPTION [...] as indicated above. Adrienne Zarate MD Pager [phone] 01/16/2018 cc: Primary Care Physician: Verified Referring [...] 03/02/2018 Units/ sodium bicarbonate feeding tube PRN (Exchange Teller 650 mg(#) (KU CLOG from Rx) (Occluded [...] Yes Report called and given to rehab consultant. * Adrienne Zarate MD - 01/14/2018 [...] recs- recommend [facility] [place] -Psych, ANALOG DEVICE DESIGNER psych and psychology consults for coping, depression - appreciate assistance -Endocrine consult for blood sugar management - appreciate recs -ID consult - Ertapenem, micafungin -Nutrition following for optimization -General Surgery consult - colostomy 12/30 Dispo: Plan for DC today to [facility] Adrienne Zarate MD [id number] * Sofía Centeno - 01/14/2018 2:03 PM CDT I have reviewed the students documentation and agree with it. Tita Centeno MSN/MHA RN CCRN Analytical Scientist - [facility] * Chari Moon - 01/14/2018 2:00 [...] Cognitive Status: Alert;Cooperative Persons Present: Father;Mother (Supervising AUTOMOTIVE WORKER, AUTOMOTIVE WORKER student) Pain: Patient complains of pain Pain [...] tolerance and progress wheelchair mobility distance Therapist: Chrai Moon Date: 01/14/2018 Associated attestation - Cassandra [...] g/kg desired wt.) Oral Diet Order: Diabetic 0131-8847 Kcal/day (60 g Carb/meal, 30 g Carb/HS snack ) Oral Supplement: Spiceland Breakfast Essentials No Sugar Added Current EN Order: Nutren 1.5 @ 75ml/hr x's 6 hrs from 7860-9351, 3 ProSource/ day (At goal will provide: [...] for dc today to rehab. Recommendation: Continue 1436-8998 Consistent Carb Diet. Continue Nutren 1.5 @ [...] Throughout Stay Status: Ongoing Emma See, RD #[id number]. * Sofía Centeno - 01/14/2018 11:54 AM CDT I have reviewed the students documentation and agree with it. Tita Centeno MSN/MHA RN CCRN Analytical Scientist - [facility] * Nani Lynch, - 01/14/2018 11:30 [...] Lynch DO Division of Infectious Diseases Pager [phone] Interval History Afebrile, vitals stable. Feeling "ok" [...] 20,000 Units/ sodium bicarbonate 650 mg(#) PRN (Exchange Teller from Rx), simethicone Q6H PRN Physical Examination [...] Pertinent radiology reviewed Nani Lynch DO Pager [phone] ID * Nani Mcelroy RN - 01/14/2018 [...] Moist;Red;Gallardo;Yellow 01/14/2018 11:00 AM Surrounding Skin Assessment Excoriated;Temple;Edema 01/14/2018 11:00 AM Wound Drainage Amount Large [...] BSN Wound Ostomy Nursing Consult Service Office: [phone] Pager: [phone] After hours Wound/Ostomy team pager : [phone] * Lexus Shirley, OT - 01/14/2018 10:00 AM CDT Formatting of this note may be different from the original. OCCUPATIONAL THERAPY PROGRESS NOTE Patient Name: Beata Kaiser Room[facility]Bed: [id number] Admitting Diagnosis: Pelvic mass [R19.00] Pelvic mass [...] tub and ramps. 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 Endocrinology Hospital Follow Up Visit Today's Date: 01/14/2018 Admission Date: 12/13/2017 Assessment: 1. 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 ROS - [...] 20,000 Units/ sodium bicarbonate 650 mg(#) PRN (Exchange Teller from Rx), simethicone Q6H PRN Physical Examination [...] Pertinent radiology reviewed Chari Pedro DO Pager [phone] ID fellow * Adrienne Zarate MD - [...] recs- recommend [facility] [place] -Psych, ANALOG DEVICE DESIGNER psych and psychology consults for coping, depression - appreciate assistance -Endocrine consult for blood sugar management - appreciate recs -ID consult - Ertapenem, micafungin -Nutrition following for optimization -General Surgery consult - colostomy 12/30 Dispo: Plan for DC Wednesday to Rehab Adrienne Zarate MD [id number] * Lexus Shirley, OT - 01/13/2018 10:59 AM CDT Formatting of this note may be different from the original. OCCUPATIONAL THERAPY PROGRESS NOTE Patient Name: Beata Kaiser Room/Bed: [place] [address] Admitting Diagnosis: Pelvic mass [R19.00] Pelvic mass [...] tub and ramps. 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 Equipment Recommendations: [facility] Additional Information: Recommend ongoing assistance for: Transfers, Bed mobility, Dressing, Bathing, Toileting Therapist: SACHA Nath/Tapan [id number] Date: 01/13/2018 * Arnaldo Delacruz MD - [...] Beata Kaiseris a 52 y.o.female[facility] the following issues: S/p hemipelvectomy for left pelvic chondrosarcoma Impairments: amputation (lower extremity), pain and poor activity tolerance Activity Limitations: grooming, bathing, dressing - lower, toileting, bladder control, transfers, ambulation and stairs Participation Restrictions: unable to return home safely This is a follow up visit from initial consultation performed on 12/27/2017 Beata Kaiser is a 52 yo F who presented to [facility] on 12/13/17 for scheduled left [...] mod assist for transfers (slide board) with [facility] coming . Recommendations: The patient continues to demonstrate improved function and activity tolerance with rehab therapies. Recommend acute inpatient rehab when medically stable. Arnaldo Delarcuz MD Subjective Beata Kaiser is a 52 y.o. female. She was evaluated transferring (slide board) to [facility] at mod assist X 1. She feels [...] of bed. Pt supine at OT departure. PREVOCATIONAL/REHABILITATION COUNSELOR COGNITIVE EVALUATION SUMMARY PRAGMATICS: BEHAVIOR: AUDITORY COMPREHENSION: [...] 20,000 Units/ sodium bicarbonate 650 mg(#) PRN (Exchange Teller from Rx), simethicone Q6H PRN Objective Vital [...] Stool Occurrence: 1 Oral Diet Order: Diabetic 7092-2422 Kcal/day (60 g Carb/meal, 30 g Carb/HS [...] with stress hyperglycemia A1c 6.5 , controlled AUTOMOTIVE WORKER regimen: Metformin thousand milligrams twice a day, jardiance 25 mg daily Hypoglycemic episodes on this regimen: None and not checking blood sugars at home Follows up with for diabetes management: Primary care physician at [facility]-complications assessment: Retinopathy: None Peripheral neuropathy: Yes on treatment Autonomic neuropathy: None Nephropathy: None Macrovascular complications: None Risk factor assessment: Last lipid profile - None on file On ACEi/ARB: Yes On Statin: yes 2. Hypothyroidism AUTOMOTIVE WORKER 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 daily TSH 2.1 [...] 20,000 Units/ sodium bicarbonate 650 mg(#) PRN (Exchange Teller from Rx), simethicone Q6H PRN Physical Examination [...] 01:40 PM No results found for: FREET3, [id number], THYBINDGLB Kalie Sibley, Endocrine fellow Pager [phone] * Lynn Barrera - 01/12/2018 3:40 PM [...] with stress hyperglycemia A1c 6.5 , controlled AUTOMOTIVE WORKER regimen: Metformin thousand milligrams twice a day, [...] ACEi/ARB: Yes On Statin: yes 2. Hypothyroidism AUTOMOTIVE WORKER 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 daily TSH 2.1 [...] 20,000 Units/ sodium bicarbonate 650 mg(#) PRN (Exchange Teller from Rx), simethicone Q6H PRN Physical Examination [...] 01:40 PM No results found for: FREET3, [id number], THYBINDGLB Kalie Sibley, Endocrine fellow Pager [phone] * Chari Moon - 01/12/2018 2:08 PM [...] Status: Alert;Cooperative;Oriented Persons Present: Nursing Staff (Supervising AUTOMOTIVE WORKER) Pain: Patient complains of pain Pain Location: [...] Lynch DO Division of Infectious Diseases Pager [phone] Interval History Afebrile, vitals stable. Pt is [...] 20,000 Units/ sodium bicarbonate 650 mg(#) PRN (Exchange Teller from Rx), simethicone Q6H PRN Physical Examination [...] Pertinent radiology reviewed Chari Pedro DO Pager [phone] ID fellow * Jasper Betts RN - [...] Used 2 doses of fentanyl IV 50 wqk=646 mcg ~ 10 mg Please call with questions/concerns. Jasper Betts, MSN, RN- Clinical Nurse Coordinator Pain Management [phone] Team pager [phone] * Pancho De Souza, PhD - 01/12/2018 12:29 PM CDT Formatting of this note may be different from the original. Psychology Consult Service ([phone]) Beata Kaiser is a 52 year-old female [...] year old female. She is from [place] and currently lives in [place]. 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 She is and has 3 children. She currently lives with her family in [place], [place]. MSE: 52 year-old female, supine in [...] questions or concerns. Pancho De Souza, PhD [phone] Licensed Psychologist Department of Psychiatry and Behavioral [...] consult- appreciate recs- recommend [facility] [place] -Psych, ANALOG DEVICE DESIGNER psych and psychology consults for coping, depression - appreciate assistance -Endocrine consult for blood sugar management - appreciate recs -ID consult - Zosyn, micafungin -Nutrition following for optimization -General Surgery consult - colostomy 12/30 Dispo: Plan for likely DC Wednesday to Rehab pending tolerating wound vac changes Adrienne Zarate MD 2490 * Lexus Shirley, OT - 01/12/2018 9:58 AM CDT Formatting of this note may be different from the original. OCCUPATIONAL THERAPY PROGRESS NOTE Patient Name: Beata aKiser Room/Bed: [id number]/ Admitting Diagnosis: Pelvic mass [R19.00] Pelvic mass [...] tub and ramps. 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 Equipment Recommendations: [facility] Additional Information: Recommend ongoing assistance for: Transfers, Dressing, Bathing, Toileting Therapist: Lexus Shirley, OTR/L [id number] Date: 01/12/2018 * Adrienne Zarate MD - [...] recs- recommend [facility] [place] -Psych, ANALOG DEVICE DESIGNER psych and psychology consults for coping, depression - appreciate assistance -Endocrine consult for blood sugar management - appreciate recs -ID consult - Zosyn, micafungin -Nutrition following for optimization -General Surgery consult - colostomy 12/30 Dispo: Plan for possible DC Wednesday to Rehab pending tolerating wound vac changes Adrienne Zarate MD [id number] * Hugh Quintana MD - 01/11/2018 9:31 [...] between 8am and 3pm on weekends at [phone]. Otherwise, page the compliance vice president salon customer experience specialist. Subjective: Beata Kaiser is seen for [...] Units / sodium bicarbonate 650 mg(#) PRN (Exchange Teller from Rx), simethicone Q6H PRN 80 mg [...] 20,000 Units/ sodium bicarbonate 650 mg(#) PRN (Exchange Teller from Rx), simethicone Q6H PRN Physical Examination [...] g/kg desired wt.) Oral Diet Order: Diabetic 0937-1790 Kcal/day (60 g Carb/meal, 30 g Carb/HS snack ) Oral Supplement: Spiceland Breakfast Essentials No Sugar Added Intake (calories) Daily Average : 1332 kilocalories (80% yesterday) Intake (protein) Daily Average : 85 grams (70-85% needs yesterday.) Current EN Order: Nutren 1.5 @ 75ml/hr x's 12 hrs (2657-3174) + 2 Liquid ProSource/day (At goal provides: [...] was given steroid during surgery. Recommendation: Continue 8051-5797 Consistent Carb Diet. Continue SF CIB with [...] Throughout Stay Status: Ongoing Emma See, RD #[id number]. * Lexus Shirley, OT - 01/11/2018 11:52 AM CDT Formatting of this note may be different from the original. OCCUPATIONAL THERAPY PROGRESS NOTE Patient Name: Beata Kaiser Room[facility]: [id number] Admitting Diagnosis: Pelvic mass [R19.00] Pelvic mass [...] tub and ramps. 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 Equipment Recommendations: [facility] Additional Information: Recommend ongoing assistance for: Transfers, Dressing, Bathing, Toileting Therapist: SACHA Nath/Tapan [id number] Date: 01/11/2018 * Linus Pisano MD - 01/11/2018 11:51 AM CDT Formatting of this note may be different from the original. Endocrinology Hospital Follow Up Visit Today's Date: 01/11/2018 Admission Date: 12/13/2017 Assessment: 1. 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 Hypothyroidism AUTOMOTIVE WORKER on levothyroxine 175 mcg daily TSH 2.1 [...] 20,000 Units/ sodium bicarbonate 650 mg(#) PRN (Exchange Teller from Rx), simethicone Q6H PRN Physical Examination [...] 01:40 PM No results found for: FREET3, [id number], THYBINDGLB Kalie Sibley, Endocrine fellow Pager [phone] * Arnaldo Delacruz MD - 01/11/2018 10:50 [...] Beata Kaiseris a 52 y.o.femalead[facility]with the following issues: S/p hemipelvectomy for left pelvic chondrosarcoma Impairments: amputation (lower extremity), pain and poor activity tolerance Activity Limitations: grooming, bathing, dressing - lower, toileting, bladder control, transfers, ambulation and stairs Participation Restrictions: unable to return home safely This is a follow up visit from initial consultation performed on 12/27/2017 Beata Kaiser is a 52 yo F who presented to [facility] on 12/13/17 for scheduled left [...] able to clear buttocks better this day PREVOCATIONAL/REHABILITATION COUNSELOR COGNITIVE EVALUATION SUMMARY PRAGMATICS: BEHAVIOR: AUDITORY COMPREHENSION: [...] Units/ sodium bicarbonate 650 mg(#) PRN ( Exchange Teller from Rx), simethicone Q6H PRN Objective Vital [...] Stool Occurrence: 1 Oral Diet Order: Diabetic 1468-0583 Kcal/day (60 g Carb/meal, 30 g Carb/HS [...] Units/ sodium bicarbonate 650 mg(#) PRN ( Exchange Teller from Rx), simethicone Q6H PRN Physical Examination [...] with stress hyperglycemia A1c 6.5 , controlled AUTOMOTIVE WORKER regimen: Metformin thousand milligrams twice a day, jardiance 25 mg daily Hypoglycemic episodes on this regimen: None and not checking blood sugars at home Follows up with for diabetes management: Primary care physician at [facility]-complications assessment: Retinopathy: None Peripheral neuropathy: Yes on treatment Autonomic neuropathy: None Nephropathy: None Macrovascular complications: None Risk factor assessment: Last lipid profile - None on file On ACEi/ARB: Yes On Statin: yes 2. 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 Therapist: Lexus Shirley OTR/L [id number] Date: 01/10/2018 * Adrienne Zarate MD - [...] recs- recommend [facility] [place] -Psych, ANALOG DEVICE DESIGNER psych and psychology consults for coping, depression - appreciate assistance -Endocrine consult for blood sugar management - appreciate recs -ID consult - Zosyn, micafungin -Nutrition following for optimization -General Surgery consult - colostomy 12/30 -Sodium normalizing- discontinue fluid restriction Dispo: Continued drainage, plan for OR today for wound exploration and wound vac placement Adrienne Zarate MD 8180 * Earl Shetty MD - 01/09/2018 1:54 [...] with stress hyperglycemia A1c 6.5 , controlled AUTOMOTIVE WORKER regimen: Metformin thousand milligrams twice a day, [...] ACEi/ARB: Yes On Statin: yes 2. Hypothyroidism AUTOMOTIVE WORKER on levothyroxine 175 mcg daily TSH 2.1 [...] Units/ sodium bicarbonate 650 mg(#) PRN ( Exchange Teller from Rx), simethicone Q6H PRN Physical Examination [...] 09:45 AM No results found for: FREET3, [id number], THYBINDGLB Pertinent radiology images viewed. Deonna Diaz [...] Diabetic diet, nocturnal tube feeds. NPO at [place] for OR tomorrow -Posted for OR 01/10 [...] consult- appreciate recs- recommend [facility] [place] -Psych, ANALOG DEVICE DESIGNER psych and psychology consults for coping, depression - appreciate assistance -Endocrine consult for blood sugar management - appreciate recs -ID consult - Zosyn, micafungin -Nutrition following for optimization -General Surgery consult - colostomy 12/30 -Sodium normalizing- discontinue fluid restriction Dispo: Continued drainage, plan for OR 01/10 for wound exploration and wound vac placement Adrienne Zarate MD [id number] * Tamiko Luther MD - 01/09/2018 7:35 [...] she wishes to proceed. * Herminia Gant, LINE APPLIANCE ASSEMBLER - 01/08/2018 2:47 PM CDT OCCUPATIONAL THERAPY [...] tub and ramps. 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 Equipment Recommendations: [facility] Therapist: HUYEN Schmidt Date: 01/08/2018 * Adrienne [...] instead of SNF, would prefer [facility] -Psych, ANALOG DEVICE DESIGNER psych and psychology consults for coping, depression - appreciate assistance -Endocrine consult for blood sugar management - appreciate recs -ID consult - Zosyn, micafungin -Nutrition following for optimization -General Surgery consult - colostomy 12/30 Dispo: Continue inpatient care, if drainage persists over the weekend then plan for exploration of wound and wound vac placement in OR on 01/11 Adrienne Zarate MD [id number] * Annette Ling RN - 01/07/2018 5:41 [...] will round on Wednesday. Please call ID salon customer experience specialist in the interim if questions arise. [...] Units/ sodium bicarbonate 650 mg(#) PRN ( Exchange Teller from Rx), simethicone Q6H PRN Physical Examination [...] gabapentin 800 mg PO q 8 hours ([id number]) to increase daily serum concentration and more [...] MSN, RN-BC Clinical Nurse Coordinator Pain Management [phone] Team pager [phone] * Kalie Sibley MBBS - 01/07/2018 2:01 PM CDT Formatting of this note may be different from the original. Endocrinology Hospital Follow Up Visit Today's Date: 01/07/2018 Admission Date: 12/13/2017 Assessment: 1. 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 Hypothyroidism AUTOMOTIVE WORKER on levothyroxine 175 mcg daily TSH 2.1 [...] Units/ sodium bicarbonate 650 mg(#) PRN ( Exchange Teller from Rx), simethicone Q6H PRN Physical Examination [...] 09:45 AM No results found for: FREET3, [id number], THYBINDGLB Pertinent radiology images viewed. RAMIREZ [employer]oto [...] instead of SNF, would prefer [facility] -Psych, ANALOG DEVICE DESIGNER psych and psychology consults for coping, depression [...] PROGRESS NOTE Patient Name: Beata Kaiser Room[facility]Bed: [id number] Admitting Diagnosis: Pelvic mass [R19.00] Pelvic mass [...] tub and ramps. 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 Equipment Recommendations: [facility] Additional Information: Recommend ongoing assistance for: Transfers, Bed mobility, Dressing, Bathing, Toileting Therapist: Lexus Shirley OTR/Tapan [id number] Date: 01/07/2018 * Jasper Betts RN - 01/07/2018 9:18 AM CDT Inpatient Pain Management Nurses [facility] - Follow -Up Primary [...] FLAKITA, RN-BC Clinical Nurse Coordinator Pain Management [phone] Team pager [phone] * Fareed Holcomb MD - 01/07/2018 8:10 [...] sign off at this time. Please page [phone] if you have any questions regarding the [...] Sensory intact. Fareed Holcomb MD Personal Pager: [phone] Team Pager: # [phone] * Indy Isabel MD - 01/06/2018 6:43 [...] 20,000 Units/ sodium bicarbonate 650 mg(#) PRN (Exchange Teller from Rx), simethicone Q6H PRN Physical Examination [...] hospital : 1965 AGE: 52 y.o. ROOM: [place] [address] DOCTOR: Date of Order: 01/06/18 Date of Service: 01/06/18 Services referred for: Prosthetic Eval and Treat: Hip Gis Software Developer Description of condition/injury, including services:Amputations Size: 1X [...] Status: Alert;Cooperative Persons Present: Sister;Nursing Staff (Supervising AUTOMOTIVE WORKER) Pain: Patient complains of pain Pain Location: [...] non-insulin dependent diabetes mellitus who presented to [facility] on 12/13/17 for scheduled left [...] further assistance , the service should page [phone] (24 hours a day/7 days a week) [...] 20,000 Units/ sodium bicarbonate 650 mg(#) PRN (Exchange Teller from Rx), simethicone Q6H PRN Review of [...] Pertinent radiology reviewed. Hugh Salinas MD Pager [phone] * Emma See RD - 01/06/2018 1:19 PM CDT CLINICAL NUTRITION Clinical Nutrition Follow-Up Summary Nutrition Assessment of Patient: Malnutrition Assessment: Adequately nourished prior to admission Current Oral Intake: Marginally Adequate Estimated Calorie Needs: 1660 (30 kcals/kg per DBW 55.3 kg due to large surgical wound) Estimated Protein Needs: 100-120 (1.5-2.2 g/kg desired wt.) Oral Diet Order: Diabetic 5684-2762 Kcal/day (60 g Carb/meal, 30 g Carb/HS snack ) Oral Supplement: [place] Breakfast Essentials No Sugar Added, Protein Powder, TID EN Intake (calories) Daily Average : 1407 kilocalories (85% via EN only over past 3 d avg.(nocturnal only since 01/04) EN Intake (protein) Daily Average : 72 grams (60-72% via EN only over past 3 day avg.) Current EN Order: Nutren 1.5 @ 75ml/hr x's 12 hrs (6164-6144) + 2 Liquid ProSource/day (At goal provides: [...] noted as tender and distended, firm per nutritionists. CT completed this morning with no note [...] to floor RD on 01/03. Recommendation: Continue [phone] Consistent Carb Diet. Please encourage SUGER FREE [...] Time Frame: Throughout Stay Emma See, KAYA #[id number]. * Kalie Sibley MBBS - 01/06/2018 1:12 PM CDT Formatting of this note may be different from the original. Endocrinology Hospital Follow Up Visit Today's Date: 01/06/2018 Admission Date: 12/13/2017 Assessment: 1. 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 RAMIREZ Soto [...] RE-ASSESSMENT NOTE Patient Name: Beata Kaiser Room/Bed: [place] [address] Admitting Diagnosis: Pelvic mass [R19.00] Pelvic mass [...] tub and ramps. 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 ([employer]) Vision Current Vision: Wears Glasses All of [...] Bathing, Toileting, Transfers Therapist: Lexus Shirley, LELANDR/[place] [id number] Date: 01/06/2018 * Adrienne Zarate MD - [...] instead of SNF, would prefer [facility], ANALOG DEVICE DESIGNER psych and psychology consults for coping, depression - appreciate assistance -Endocrine consult for blood sugar management - appreciate recs -ID consult - Zosyn, micafungin -Nutrition following for optimization -General Surgery consult - colostomy 12/30 Dispo: Continue inpatient care Adrienne Zarate MD [phone] * Jami Edwards, RN - 01/05/2018 10:30 [...] Garsia RN, BSN Wound /Ostomy Team Pager [phone] After Hours Wound/Ostomy team pager [phone] * Kalie Sibley MBBS - 01/05/2018 3:01 PM CDT Formatting of this note may be different from the original. Endocrinology Hospital Follow Up Visit Today's Date: 01/05/2018 Admission Date: 12/13/2017 Assessment: 1. DM type 2 with stress hyperglycemia A1c 6.5 , controlled AUTOMOTIVE WORKER regimen: Metformin thousand milligrams twice a day, jardiance 25 mg daily Hypoglycemic episodes on this regimen: None and not checking blood sugars at home Follows up with for diabetes management: Primary care physician at [facility]-complications assessment: Retinopathy: None Peripheral neuropathy: Yes on treatment Autonomic neuropathy: None Nephropathy: None Macrovascular complications: None Risk factor assessment: Last lipid profile - None on file On ACEi/ARB: Yes On Statin: yes 2. Hypothyroidism AUTOMOTIVE WORKER on levothyroxine 175 mcg daily TSH 2.1 [...] 20,000 Units/ sodium bicarbonate 650 mg(#) PRN (Exchange Teller from Rx), simethicone Q6H PRN Physical Examination [...] 09:45 AM No results found for: FREET3, [id number], THYBINDGLB Pertinent radiology images viewed. RAMIREZ Soto [...] Cognitive Status: Alert;Cooperative;Oriented Persons Present: Sister (Supervising AUTOMOTIVE WORKER, Wound team staff at beginning of session) [...] non-insulin dependent diabetes mellitus who presented to [facility] on 12/13/17 for scheduled left [...] further assistance , the service should page [phone] (24 hours a day/7 days a week) [...] 20,000 Units/ sodium bicarbonate 650 mg(#) PRN (Exchange Teller from Rx) Review of Systems: A 14 [...] 0304) POC Glucose (Download): (!) 265 (01/05/18 3432) Radiology and other Diagnostics Review: Pertinent radiology reviewed. Hugh Salinas MD Pager [phone] * Herminia Gant OTA - 01/05/2018 11:14 [...] instead of SNF, would prefer [facility], ANALOG DEVICE DESIGNER psych and psychology consults for coping, depression - appreciate assistance -Endocrine consult for blood sugar management - appreciate recs -ID consult - Zosyn, micafungin -Nutrition following for optimization - TPN (continue for now), tube feeds switched to nocturnal. - Prealbumin 18 and albumin 2.2 -General Surgery consult - colostomy 12/30 Dispo: Continue inpatient care Rebekah [phone] * Jasper Betts RN - 01/05/2018 9:45 AM CDT Inpatient Pain Management Nurses - [facility] - Follow -Up Discussed patient with Nallely GRACE. Primary team is responsible for entering orders. Suggested Plan for the Day: Continue current pain regimen. Of note gabapentin was changed from 600 mg q6 hours to 800 mg q 12 hours. Suggestions was every 6 hours [id number]. Will continue with new dose today and [...] MSN, RN- Clinical Nurse Coordinator Pain Management [phone] Team pager [phone] * Indy Isabel MD - 01/05/2018 7:01 [...] 20,000 Units/ sodium bicarbonate 650 mg(#) PRN (Exchange Teller from Rx) Physical Examination Vital Signs: Last [...] 20,000 Units/ sodium bicarbonate 650 mg(#) PRN (Exchange Teller from Rx) Physical Examination Vital Signs: Last [...] with stress hyperglycemia A1c 6.5 , controlled AUTOMOTIVE WORKER regimen: Metformin thousand milligrams twice a day, [...] ACEi/ARB: Yes On Statin: yes 2. Hypothyroidism AUTOMOTIVE WORKER on levothyroxine 175 mcg daily TSH 2.1 [...] 20,000 Units/ sodium bicarbonate 650 mg(#) PRN (Exchange Teller from Rx) Physical Examination Vital Signs: Last [...] 09:45 AM No results found for: FREET3, [id number], THYBINDGLB Pertinent radiology images viewed. Impression: RAMIREZ [...] Agree With My Assessment? Wound Base Assessment Moist;Temple;Gallardo;Yellow Surrounding Skin Assessment Intact Wound Site Closure None Wound Drainage Amount None Wound Drainage Description Serosanguineous Wound Dressing Status Intact Wound Dressing and / or Treatment Aquacel AG Number of days: 15 Wounds (NOT for Pressure Injuries) 12/23/17 1345 Left Labia (Active) 12/23/17 1345 Labia Wound Orientation: Left Wound Type: Wound Type:: Wound Description (Comments): Wound Base Assessment Moist;Pale;Temple;Yellow Surrounding Skin Assessment Edema Wound Site Closure [...] Right (Active) 12/30/17 1209 Right Stoma Assessment Temple, round, protruding Drainage Description Gallardo;Brown Peristomal Skin [...] BSN Wound Ostomy Nursing Consult Service Office: [phone] Pager: [phone] After hours Wound/Ostomy team pager : [phone] * Arnaldo Delacruz MD - 01/04/2018 11:45 [...] Beata Lema a 52 y.o.[facility] following issues: S/p hemipelvectomy for left pelvic chondrosarcoma Impairments: amputation (lower extremity), pain and poor activity tolerance Activity Limitations: grooming, bathing, dressing - lower, toileting, bladder control, transfers, ambulation and stairs Participation Restrictions: unable to return home safely This is a follow up visit from initial consultation performed on 12/27/2017 Beata Kaiser is a 52 yo F who presented to [facility] on 12/13/17 for scheduled left [...] a significant amount of fluid. RN notified. PREVOCATIONAL/REHABILITATION COUNSELOR COGNITIVE EVALUATION SUMMARY PRAGMATICS: BEHAVIOR: AUDITORY COMPREHENSION: [...] 20,000 Units/ sodium bicarbonate 650 mg(#) PRN (Exchange Teller from Rx) Objective Vital Signs: Last Filed [...] instead of SNF, would prefer [facility], ANALOG DEVICE DESIGNER psych and psychology consults for coping, depression [...] Status: Alert;Oriented;Cooperative Persons Present: Sister;Nursing Staff (Supervising AUTOMOTIVE WORKER) Pain: Patient complains of pain;During activity Pain [...] 20,000 Units/ sodium bicarbonate 650 mg(#) PRN (Exchange Teller from Rx) Physical Examination Vital Signs: Last [...] Microbiology data reviewed. Chari Pedro DO Pager [phone] ID fellow * Chari Moon - 01/03/2018 [...] PROGRESS NOTE Patient Name: Beata Kaiser Room/Bed: [place] [address] Admitting Diagnosis: Pelvic mass [R19.00] Pelvic mass [...] of house, Stairs, Toileting Therapist: JOHNATHON Olivarez [id number] Date: 01/03/2018 * Kalie Sibley MBBS - 01/03/2018 12:05 PM CDT Formatting of this note may be different from the original. Endocrinology Hospital Follow Up Visit Today's Date: 01/03/2018 Admission Date: 12/13/2017 Assessment: 1. 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 Hypothyroidism AUTOMOTIVE WORKER on levothyroxine 175 mcg daily TSH 2.1 [...] 20,000 Units/ sodium bicarbonate 650 mg(#) PRN (Exchange Teller from Rx) Physical Examination Vital Signs: Last [...] 09:45 AM No results found for: FREET3, [id number], THYBINDGLB Pertinent radiology images viewed. Impression: RAMIREZ [...] CDT Inpatient Pain Management Nurses - Clinical [facility] - Follow -Up Primary team is responsible for entering orders. Suggested Plan for the Day: Change acetaminophen 1000 mg PO q 8 hours, [id number] - Patient has been at ~ 4000 mg daily for many days Change gabapentin 800 mg PO q 12 hours, 5734-0523 - improve medication that patient indicates helps with phantom limb pain and facilitate the larger dose being given just before bedtime. Gabapentin 600 mg PO q 12 hours, 6040-1899 - maintain a 400 mg/day dose increase [...] MSN, RN- Clinical Nurse Coordinator Pain Management [phone] Team pager [phone] * Hugh Salinas MD - 01/03/2018 10:37 [...] non-insulin dependent diabetes mellitus who presented to [facility] on 12/13/17 for scheduled left [...] 20,000 Units/ sodium bicarbonate 650 mg(#) PRN (Exchange Teller from Rx) Review of Systems: A 14 [...] 0510) POC Glucose (Download): (!) 119 (01/03/18 9551) Radiology and other Diagnostics Review: Pertinent radiology reviewed. Hugh Salinas MD Pager [phone] * Adrienne Carlos, RD - 01/03/2018 8:59 [...] 12/14. 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 Pt's weight wentdown 28# or 12% s/p removal of her leg, 203# (12/18). Latest weight shows a 14# increase in 9 days, likely due to fluid. Pt had continued to havedecreased PO intake, with average PO intake of 600 kcals, 33 gm per day per calorie count. Yet Per fellow RD, all of Pt's intake of [place] shakes may not be included in the [...] encourage protein shakes between meals, made with [place] Breakfast Essentials (NO SUGAR ADDED), skim milk, [...] further nutrition care. Adrienne Carlos, KAYA, LD, [facility] *[phone] * Feli Winkler MD - 01/03/2018 [...] -Colorectal surgery will sign off, please page #[phone] with further questions -Follow-up with Dr. Mccollum [...] Net 308 ml Feli Winkler MD Pager [phone] * César Davis MD - 01/03/2018 6:22 [...] instead of SNF, would prefer [facility], ANALOG DEVICE DESIGNER psych and psychology consults for coping, depression - appreciate assistance -Endocrine consult for blood sugar management - appreciate recs -ID consult - Zosyn, micafungin -Nutrition following for optimization - TPN (continue for now), tube feeds -General Surgery consult - colostomy 12/30 Dispo: Continue inpatient care éCsar Davis MD 0815 * QueemelyHarry barrow - 01/02/2018 3:37 PM [...] with stress hyperglycemia A1c 6.5 , controlled AUTOMOTIVE WORKER regimen: Metformin thousand milligrams twice a day, [...] ACEi/ARB: Yes On Statin: yes 2. Hypothyroidism AUTOMOTIVE WORKER on levothyroxine 175 mcg daily TSH 2.1 [...] 20,000 Units/ sodium bicarbonate 650 mg(#) PRN (Exchange Teller from Rx) Physical Examination Vital Signs: Last [...] 09:45 AM No results found for: FREET3, [id number], THYBINDGLB Pertinent radiology images viewed. Impression: Marco [...] PROGRESS NOTE Patient Name: Beata Kaiser Room/Bed: JB4171/01 Admitting Diagnosis: Pelvic mass [R19.00] Pelvic mass [...] Pt requires extra time and cues for oxps-hx-aifo process. Limited by pain and weakness. Assist [...] non-insulin dependent diabetes mellitus who presented to [facility] on 12/13/17 for scheduled left [...] Net 341 ml Fareed Holcomb MD Pager [phone] Associated attestation - Manny Barrios MD - 01/02/2018 11:29 AM CDT Formatting of this note may be different from the original. ATTESTATION I personally performed the banuelos portions of the E/M visit, discussed case with resident and concur with resident documentation of history, physical exam, assessment, and treatment plan unless otherwise noted. Staff name: Manny Barrios MD Date: 01/02/2018 * César Daivs MD - 01/02/2018 7:57 AM CDT Formatting [...] instead of SNF, would prefer [facility], ANALOG DEVICE DESIGNER psych and psychology consults for coping, depression - appreciate assistance -Endocrine consult for blood sugar management - appreciate recs -ID consult - Zosyn, micafungin -Nutrition following for optimization - TPN (continue for now), tube feeds -General Surgery consult - colostomy 12/30 Dispo: Continue inpatient care César Davis MD [phone] * Amanda Juares - 01/01/2018 4:29 PM CDT BS at 1330 was 386, recheck BS at 1610 was 354. MD called, recommended calling endocrinology. Spoke with shoes hand sewer, per today's progress note insulin changes ordered [...] Net 949 ml Feli Winkler MD Pager [phone] Associated attestation - Manny Barrios MD - [...] with stress hyperglycemia A1c 6.5 , controlled AUTOMOTIVE WORKER regimen: Metformin thousand milligrams twice a day, [...] ACEi/ARB: Yes On Statin: yes 2. Hypothyroidism AUTOMOTIVE WORKER on levothyroxine 175 mcg daily TSH 2.1 [...] 20,000 Units/ sodium bicarbonate 650 mg(#) PRN (Exchange Teller from Rx) Physical Examination Vital Signs: Last [...] 04:38 AM No results found for: FREET3, [id number], THYBINDGLB Pertinent radiology images viewed. Impression: Marco [...] instead of SNF, would prefer [facility], ANALOG DEVICE DESIGNER psych and psychology consults for coping, depression - appreciate assistance -Endocrine consult for blood sugar management - appreciate recs -ID consult - Zosyn, micafungin -Nutrition following for optimization - TPN, tube feeds -General Surgery consult - colostomy 12/30 Dispo: Continue inpatient care César Davis MD [phone] * Julia Marcelino MD - 12/31/2017 10:21 [...] non-insulin dependent diabetes mellitus who presented to [facility] on 12/13/17 for scheduled left [...] sign off Please call with questions. Julia Marceilno MD Internal Medicine Subjective Beata Kaiser is [...] 20,000 Units/ sodium bicarbonate 650 mg(#) PRN (Exchange Teller from Rx) Objective: Vital Signs: Last Filed [...] 20,000 Units/ sodium bicarbonate 650 mg(#) PRN (Exchange Teller from Rx) Physical Examination Vital Signs: Last [...] Microbiology data reviewed. Chari Pedro DO Pager [phone] ID fellow * Kerline Kruger RN - [...] on the patient. 1703: Paged Med consults #[phone] Spoke to team about EKG results and [...] Assessment? Except 12/30/2017 2:45 PM Stoma Assessment Temple 12/31/2017 12:00 PM Drainage Description Sanguineous;Brown 12/30/2017 [...] BSN Wound Ostomy Nursing Consult Service Office: [phone] Pager: [phone] After hours Wound/Ostomy team pager : [phone] * Adair Colin MD - 12/31/2017 12:05 [...] between 8am and 3pm on weekends at [phone]. Otherwise, page the compliance vice president salon customer experience specialist. Subjective: Beata Kaiser is seen for [...] 20,000 Units/ sodium bicarbonate 650 mg(#) PRN (Exchange Teller from Rx) Mental Status Exam: General/Constitutional: cooperative, [...] non focal Musculoskeletal: no EPS or dystonia Adiar Colin MD Associated attestation - Hugh Quintana [...] and between 8am and 3pm on weekends [phone]. Otherwise, page the compliance vice president salon customer experience specialist. Staff name: Hugh Quintana MD Date: [...] Net 2755 ml Evelyn Barrow DO Pager [phone] * Herminia Gant OTA - 12/31/2017 11:30 [...] CDT Inpatient Pain Management Nurses - [facility] - Follow -Up Discussed patient with Dr. Mina Davis (primary team). Primary team is responsible for entering orders. Suggested Plan for the Day: Lidocaine patch x2 cut to fit placed beside surgical incision and around ostomy bag. Discontinue fentanyl SIDING INSTALLER - patient stating that she is not [...] Regimen, OME: Used 580 mcg in fentanyl SIDING INSTALLER ~ 58 mg Used 1 dose of morphine IV @ 2 mg ~ 6 mg Used 3 doses of IV fentanyl @ 50 edt=687 mcg ~ 15 mg Used 1 dose [...] 25 mg at 12/19/17 2139 fentaNYL (SUBLIMAZE) SIDING INSTALLER 550 mcg/ NS 55 mL infusion syr (std conc)( premade), , Intravenous, SIDING INSTALLER, César Davis MD fentaNYL citrate PF (SUBLIMAZE) [...] 1 capsule, 1 capsule, Feeding Tube, PRN (Exchange Teller from Rx), Adrienne Zarate MD pantoprazole DR [...] hours as needed for pain. Discontinue fentanyl SIDING INSTALLER. Suggest allowing hydromorphone 0.5-1 mg IV every 4 hours as needed for breakthrough pain not relieved with oral medications or NPO or vomiting for ONLY 24 hours, then taper to every 6 hours PRN breakthrough pain not relieved with oral medications or NPO or vomiting. Please call with questions/concerns. Jasper Betts, MSN, RN-BC Clinical Nurse Coordinator Pain Management [phone] Team pager [phone] * Adrienne Carlos RD - 12/31/2017 9:46 [...] (TPN) 65 mL/hr at 12/30/172027 fentaNYL (SUBLIMAZE) SIDING INSTALLER 550 mcg/ NS 55 mL infusion syr (std conc)(premade ) lactated ringers infusion Stopped (12/30/17 1440) PRN and Respiratory Meds:alum/mag hydroxide/simeth Q6H PRN, calcium carbonate Q4H PRN, diazePAM Q6H PRN, diphenhydrAMINE Q6H PRN OR [DISCONTINUED] diphenhydrAMINE Q6H PRN, fentaNYL citrate PF Q1H PRN, naloxone PRN, ondansetron (ZOFRAN) IV Q6H PRN, oxyCODONE Q3H PRN, pancrelipase 20,000 Units/ sodium bicarbonate 650 mg(#) PRN (Exchange Teller from Rx) Electrolyte Treatments: Nothing besides LR [...] 12/14. 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 Pt's [...] fellow RD, all of Pt's intake of [place] shakes may not be included in the [...] + Protein shakes between meals, made with [place] Breakfast Essentials (NO SUGAR ADDED), skim milk, [...] are desired. NSS is available by pager [phone] for assistance[address] Adrienne [address], LD, [facility] *[phone] * César Davis MD - 12/31/2017 8:01 [...] instead of SNF, would prefer [facility], ANALOG DEVICE DESIGNER psych and psychology consults for coping, depression - appreciate assistance -IM consult for hyponatremia and diabetes management- appreciate recs -ID consult for persistent leukocytosis and fevers - Zosyn, micafungin -Nutrition following for optimization - TPN -General Surgery consult - colostomy 12/30 Dispo: Continue inpatient care César Davis MD [phone] * Kerline Kruger, RN - 12/31/2017 8:00 [...] No orders reiceved. Surgery resident, Dr Barrow #[phone] paged. Orders received. Primary RN notified and [...] Dr. Davis gave orders for a Fentanyl SIDING INSTALLER with the settings of 06/25/. Orders in [...] Units/ sodium bicarbonate 650 mg (#) PRN (Exchange Teller from Rx) Physical Examination Vital Signs: Last [...] Review Microbiology data reviewed. Chari Pedro, Pager [phone] ID fellow * Kerline Kruger, RN - [...] as indicated post-operatively. Therapist: Lexus Shirley OTR/L [id number] Date: 12/30/2017 * Cassandra Villatoro - 12/30/2017 [...] 20,000 Units/ sodium bicarbonate 650 mg(#) PRN (Exchange Teller from Rx) Electrolyte Treatments: None noted yesterday [...] 12/14. 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 Pt's [...] fellow RD, all of Pt's intake of [place] shakes may not be included in the [...] 110 g protein (100% of goal) Nneka Tohmpson MS, RD, LD, [facility] Pager [phone] Office [phone] * Aimee Mccollum DO - 12/30/2017 8:22 [...] 20,000 Units/ sodium bicarbonate 650 mg(#) PRN (Exchange Teller from Rx) Vital Signs: Last Filed Vital [...] 24 hours): FSBS (Manual): (!) 160 (12/30/17 0148) Glucose: (!) 165 (12/30/17 5452) POC Glucose (Download): (!) 160 (12/30/17 2841) Aimee Mccollum DO Pager [phone] * César Davis MD - 12/30/2017 7:54 [...] instead of SNF, would prefer [facility], ANALOG DEVICE DESIGNER psych and psychology consults for coping, depression - appreciate assistance -IM consult for hyponatremia and diabetes management- appreciate recs -ID consult for persistent leukocytosis and fevers - Radha, appreciate recs -Nutrition following for optimization- nocturnal tube feeds -General Surgery consult- plan for colostomy 12/30 Dispo: NPO for colostomy today César Davis MD [phone] * Grace Smith, SANJAY - 12/30/2017 3:17 AM CDT Pt bowels are not clear. RN paged Onc to see what step to take next to get pt to clear bowels. Onc salon customer experience specialist stated that there was no further [...] sessions as part of her plan of customer care agent: Lynn Barrera Date: 12/29/2017 * Chari Moon [...] Cognitive Status: Alert;Oriented;Cooperative Persons Present: Daughter;Spouse (Supervising AUTOMOTIVE WORKER) Pain: Patient complains of pain Pain Location: [...] mobility;Ambulation;In and out of house;Stairs;Toileting Therapist: Chari oMon Date: 12/29/2017 Associated attestation - Cassandra Villatoro [...] Units/ sodium bicarbonate 650 mg (#) PRN (Exchange Teller from Rx) Physical Examination Vital Signs: Last [...] PROGRESS NOTE Patient Name: Beata Kaiser Room/Bed: [place] [address] Admitting Diagnosis: Pelvic mass [R19.00] Pelvic mass [...] and Cooperative to Participate Persons Present: Daughter (prevocational/rehabilitation counselor) Home Living Type of Home: House Home Layout: Performs ADL'S on One Level (2 steps to enter) Bathroom Shower / Tub: Tub/Shower Unit Prior Function Level Of [place]: Independent with ADLs and functional transfers Lives [...] OT Discharge Recommendations: Inpatient Setting Equipment Recommendations: [facility] Additional Information: Recommend ongoing assistance for: Transfers, Bed mobility, Dressing, Bathing, Toileting Therapist: SACHA Nath/[place] [id number] Date: 12/29/2017 * Adrienne Zarate MD - [...] instead of SNF, would prefer [facility], ANALOG DEVICE DESIGNER psych and psychology consults for coping, depression - appreciate assistance -IM consult for hyponatremia and diabetes management- appreciate recs -ID consult for persistent leukocytosis and fevers - Radha, appreciate recs -Nutrition following for optimization- nocturnal tube feeds -General Surgery consult- plan for colostomy 12/30 Dispo: Continue inpatient care, NPO at [place] and hold tube feeds Adrienne Zarate MD [phone] * Adair Colin MD - 12/28/2017 6:31 [...] between 8am and 3pm on weekends at [phone]. Otherwise, page the compliance vice president salon customer experience specialist. Subjective: Beata Kaiser is seen for [...] 000 Units/ sodium bicarbonate 650 mg(#) PRN (Exchange Teller from Rx) Mental Status Exam: General/Constitutional: cooperative, [...] and between 8am and 3pm on weekends [phone]. Otherwise, page the compliance vice president salon customer experience specialist. Staff name: Hugh Quintana MD Date: [...] Units/ sodium bicarbonate 650 mg (#) PRN (Exchange Teller from Rx) Physical Examination Vital Signs: Last [...] / Cognitive Status: Alert;Cooperative Persons Present: (Spervising AUTOMOTIVE WORKER) Pain: Patient complains of pain Pain Location: [...] provide intervention as indicated. Therapist: SACHA Nath/Tapan [id number] Date: 12/28/2017 * Nani Mcelroy RN - [...] BSN Wound Ostomy Nursing Consult Service Office: [phone] Pager: [phone] After hours Wound/Ostomy team pager : [phone] * Dalia Bullock MD - 12/28/2017 9:38 [...] non-insulin dependent diabetes mellitus who presented to [facility] on 12/13/17 for scheduled left [...] Dalia Bullock MD PGY-3 Internal Medicine Pager [phone] Subjective Beata Kaiser is a 52 y.o. [...] 20,000 Units/ sodium bicarbonate 650 mg(#) PRN (Exchange Teller from Rx) Objective: Vital Signs: Last Filed [...] 0400) POC Glucose (Download): (!) 187 (12/28/17 5877) Radiology and other Diagnostics Review: Pertinent radiology [...] Hgb 8.2 -Rehab consult- appreciate recs -Psych, ANALOG DEVICE DESIGNER psych and psychology consults for coping, depression [...] Dispo: Continue inpatient care Adrienne Zarate MD [phone] * Anita Hines RN - 12/28/2017 12:16 [...] a 52 y.o. female admitted to [facility] on 12/13/2017 with the following issues: S/p [...] acute inpatient rehabilitation. 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 Pt will also benefit from de-sensitization techniques as instructed by PT and to be performed by self as able. Hospital Course: Beata Kaiser is a 52 yo F who presented to [facility] on 12/13/17 for scheduled left [...] management due to ongoing pain issues since SIDING INSTALLER removed. Pt has been working with PT/OT [...] set ( turned to R with wedge). PREVOCATIONAL/REHABILITATION COUNSELOR COGNITIVE EVALUATION SUMMARY PRAGMATICS: BEHAVIOR: AUDITORY COMPREHENSION: [...] 20,000 Units/ sodium bicarbonate 650 mg(#) PRN (Exchange Teller from Rx) Objective Vital Signs: Last Filed [...] non-insulin dependent diabetes mellitus who presented to [facility] on 12/13/17 for scheduled left [...] Dalia Bullock MD PGY-3 Internal Medicine Pager [phone] Subjective Beata Kaiser is a 52 y.o. [...] / Cognitive Status: Alert;Cooperative Persons Present: (Supervising AUTOMOTIVE WORKER) Pain: Patient complains of pain Pain Location: [...] CDT PHYSICAL THERAPY MOBILITY NOTE Attempt x1 (9381) Patient was assigned for activity with the mobility aide by the supervising therapist. Patient declined to participate despite encouragement. Patient reports that she is resting comfortably at this time and requests to continue resting. Patient is open to this plastic process technician returning for mobility session later on this date if time allows. Nursing notified. Will revisit this patient as able. Attempt x2 (3841): Patient was assigned for activity with the [...] Diet Order: Six Small Meals Oral Supplement: Spiceland Breakfast Essentials No Sugar Added, Protein Powder [...] have any lunch. Dinner was only an Malay muffin and grapes. She reports her appetite [...] Hours Status: Not met Emma See RD #[id number]. * Adrienne Zarate MD - 12/27/2017 12:43 [...] Hgb 8.1 -Rehab consult- appreciate recs -Psych, ANALOG DEVICE DESIGNER psych and psychology consults for coping, depression [...] Dispo: Continue inpatient care Adrienne Zarate MD [phone] Associated attestation - Tamiko Luther MD - [...] evidence of MRSA and high risk for SUIS- will dc and cont w Zosyn- this [...] collection is noted. Chari Pedro DO Pager [phone] Infectious Diseases Fellow * Fareed Holcomb MD [...] warm, dry Fareed Holcomb MD Personal Pager: [phone] Team Pager: # [phone] * Marlene Ramirez - 12/27/2017 10:15 AM CDT ORTHOTICS/PROSTHETICS Consult Note: NAME: Beata Kaiser ADMISSION DATE: admitted to hospital : 1965 AGE: 52 y.o. ROOM: [place] [address] DOCTOR: Date of Order: 12/24 Date of [...] PROGRESS NOTE Patient Name: Beata Kaiser Room/Bed: [place] [address] Admitting Diagnosis: Pelvic mass [R19.00] Pelvic mass [...] and Cooperative to Participate Persons Present: (rehab consultant) Home Living Type of Home: House Home Layout: Performs ADL'S on One Level (2 steps to enter) Bathroom Shower / Tub: Tub/Shower Unit Prior Function Level Of Evergreen: Independent with ADLs and functional transfers Lives [...] mobility, Dressing, Bathing, Toileting Therapist: SACHA Nath/Tapan [id number] Date: 12/27/2017 * Macho Nolasco, PHARMD - [...] non-insulin dependent diabetes mellitus who presented to [facility] on 12/13/17 for scheduled left [...] 0401) POC Glucose (Download): (!) 215 (12/26/17 5233) Radiology and other Diagnostics Review: Pertinent radiology [...] Cognitive Status: Alert;Cooperative;Oriented;To Person;To Place Persons Present: Edm Operator Pain: Patient complains of pain;02/27;Before activity [...] PROGRESS NOTE Patient Name: Beata Kaiser Room/Bed: [place] [address] Admitting Diagnosis: Pelvic mass [R19.00] Pelvic mass [...] Tub: Tub/Shower Unit Prior Function Level Of Evergreen: Independent with ADLs and functional transfers Lives [...] Setting Equipment Recommendations: Drop arm BSC, w/c, graduate student instructor, slide board Additional Information: Recommend ongoing assistance [...] Hgb 7.9 -Rehab consult- appreciate recs -Psych, ANALOG DEVICE DESIGNER psych and psychology consults for coping, depression [...] Continue inpatient care César Davis MD Pager [phone] * Hood Tellez MD - 12/25/2017 6:49 [...] non-insulin dependent diabetes mellitus who presented to [facility] on 12/13/17 for scheduled left [...] 0442) POC Glucose (Download): (!) 292 (12/25/17 0888) Radiology and other Diagnostics Review: Pertinent radiology [...] 8.3 today -Rehab consult- appreciate recs -Psych, ANALOG DEVICE DESIGNER psych and psychology consults for coping, depression- appreciate assistance -IM consult for hyponatremia- appreciate recs, improving -ID consult for persistent leukocytosis and fevers- Vanc/zosyn, appreciate recs -Nutrition following for optimization; calorie count performed yesterday; request Nutrition evaluation for possible feeding tube placement -CT pelvis ordered to evaluate fluid collection Dispo: Continue inpatient care César Davis MD Pager [phone] * Luis Sargent MD - 12/24/2017 5:29 [...] non-insulin dependent diabetes mellitus who presented to [facility] on 12/13/17 for scheduled left [...] Screen NEG Electronic Crossmatch YES Unit Number [id number] Blood Component Type RBC,ADSOL,LEUKO REDUCED Unit Division [...] Pertinent radiology reviewed. Luis Sargent MD Pager [phone] * Italia Ramos RN - 12/24/2017 3:33 [...] PROGRESS NOTE Patient Name: Beata Kaiser Room/Bed: [place] [address] Admitting Diagnosis: Pelvic mass [R19.00] Pelvic mass [...] and Cooperative to Participate Persons Present: RN (diet assistant, prevocational/rehabilitation counselor) Home Living Type of Home: House Home Layout: Performs ADL'S on One Level (2 steps to enter) Bathroom Shower / Tub: Tub/Shower Unit Prior Function Level Of Evergreen: Independent with ADLs and functional transfers Lives [...] Pt supine at OT departure with staff developer at bedside. Activity Tolerance Endurance: 2/5 Tolerates [...] ortho to manage- reinforce as needed -Maintain AMNNY drain to bulb suction -Orals for pain control, gabapentin -Resume xarelto for DVT -Please do not leave flat for extended periods of time, would like patient to lay onto her right side as much as possible for swelling management of L hemipelvectomy -Acute blood loss anemia- Hgb 7.4, will transfuse one unit today -Rehab consult- appreciate recs -Psych, ANALOG DEVICE DESIGNER psych and psychology consults for coping, depression- appreciate assistance -IM consult for hyponatremia- appreciate recs -ID consult for persistent leukocytosis and fevers- Vanc/zosyn, appreciate recs -Nutrition following for optimization -Calorie count today -PICC line ordered Dispo: continue inpatient care Adrienne Zarate MD Pager [phone] * Nani Lynch DO - 12/24/2017 7:44 [...] Lynch DO Division of Infectious Diseases Pager [phone] Dr. Isabel will round again on the patient on Wednesday. Please feel free to call the ID fellow salon customer experience specialist at pager [phone] if there are any new issues or [...] acute cardiopulmonary abnormality. Dominique Nelson MD Pager [phone] Infectious Diseases Fellow * Olena Xiong - [...] non-insulin dependent diabetes mellitus who presented to [facility] on 12/13/17 for scheduled left [...] needs further assistance, the service should page [phone] (24 hours a day/7 days a week) [...] Pertinent radiology reviewed. Luis Sargent MD Pager [phone] * Kaylie Johnson - 12/23/2017 3:24 PM [...] and adjust therapy as needed. Kaylie Johnson [facility] 12/23/2017 * Nani Lynch DO [...] Lynch DO Division of Infectious Diseases Pager [phone] Interval History Fever up to 38.9 No [...] atelectasis and/or pneumonia. Dominique Nelson MD Pager [phone] Infectious Diseases Fellow * Herminia Gant OTA [...] Tub: Tub/Shower Unit Prior Function Level Of Evergreen: Independent with ADLs and functional transfers Lives [...] OT Discharge Recommendations: Inpatient Setting Equipment Recommendations: [facility] Additional Information: Next treatment: cardiac chair ordered [...] monitor -Rehab consult- appreciate recs -Psych and ANALOG DEVICE DESIGNER psych consults for coping, depression- appreciate assistance -IM consult for hyponatremia- appreciate recs -ID consult for persistent leukocytosis and fevers- zosyn, appreciate recs -Nutrition following for optimization Dispo: continue inpatient care Adrienne Zarate MD Pager [phone] * Kerline Kruger RN - 12/23/2017 10:[address] Zarate notified about patients temperature of 38.9 C (102 F) and patients lethargy. Patient is unable to carry on conversation and barely able to answer questions before drifting off to sleep. Dr. Zarate stated that she would come to see the patient shortly. Nothing further at this time. * Ivette Wade APRN-ANALOG DEVICE DESIGNER - 12/23/2017 9:35 AM CDT Patient too tired to engage in conversation this morning. Will continue to try to find her and talk about her emotional recovery from her new body image. She is a very self reliant and resilient woman by history. Please use the sleep bundle to assure her at leat 4 hours of uninterrupted sleep. Ivette Wade [facility]- [phone] * Olena Xiong - 12/22/2017 9:36 [...] non-insulin dependent diabetes mellitus who presented to [facility] on 12/13/17 for scheduled left [...] needs further assistance, the service should page [phone] (24 hours a day/7 days a week) [...] (Last 24 hours) Glucose: (!) 142 (12/22/17 9219) POC Glucose (Download): (!) 227 (12/22/17 6845) Radiology and other Diagnostics Review: Pertinent radiology reviewed. Luis Sargent MD Pager [phone] * Kendrick Varma RN - 12/22/2017 4:58 [...] / Cognitive Status: Alert;Oriented;Cooperative;Follows Commands Persons Present: Edm Operator;Nursing Staff Pain: Patient complains of pain;2/10 [...] Current Oral Intake: Improving Estimated Calorie Needs: 8107-1038 (27-30 kcal/kg desired wt of 55.3kg.) Estimated Protein Needs: 100 (1.8 g/kg desired wt of 55.3kg.) Oral Diet Order: Regular Beata Kaiser is a 52 y.o. 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 (Pt's weight is now down 28# or 12% s/p removal of her leg). Pt appears obese.. Pt reports decreased po intake, no GI concerns. She has somewhat of a flat affect. I was able to engaged her in education regarding her high protein needs. I also encouraged and provided her with a Spiceland high protein shake which she liked and was sipping on at time of my visit (cleared with RN first / pt is diabetic and on a dluid restriction). She reports she is familiar with diabetic diet and has no questions. RD to continue to follow to ensure adequate protein and po intake. Recommendation: Continue 6991-4101 Consistent Carb Diet OR if bs's elevated, [...] Frame: Within 72 Hours Emma See, KAYA #[id number]. * Shilpi Camejo RN - 12/22/2017 12:39 PM CDT Pt has had several loose stools today. C diff screen negative as of 12/20. Spoke with Dr Zarate for possible imodium orders. Will hold off until ID sees her for rounds * Ivette Wade, PAINTER SPRING-ANALOG DEVICE DESIGNER - 12/22/2017 10:05 AM CDT Patient was [...] help her have better sleep. Ivette Wade [facility]- 0691 * Adrienne Zarate MD - 12/22/2017 [...] continue to monitor -Rehab consult- appreciate recs -ANALOG DEVICE DESIGNER psych consult for coping, depression- appreciate assistance -IM consult for hyponatremia- appreciate recs -Nutrition following for optimization Dispo: continue inpatient care Adrienne Zarate MD Pager [phone] * Ivette Wade APRN-ANALOG DEVICE DESIGNER - 12/21/2017 2:30 PM CDT Patient resting. Spoke with her father. Will return in AM. Ivette Wade [facility]- 0691 * Adrienne Zarate MD - 12/21/2017 [...] continue to monitor -Rehab consult- appreciate recs -ANALOG DEVICE DESIGNER psych consult for coping, depression- appreciate assistance -IM consult for hyponatremia- appreciate recs Dispo: continue inpatient care Adrienne Zarate MD Pager [phone] * Herminia Gant OTA - 12/21/2017 1:23 [...] Tub: Tub/Shower Unit Prior Function Level Of Evergreen: Independent with ADLs and functional transfers Lives [...] Therapist: HUYEN Schmidt Date: 12/21/2017 * Cassandra Villtaoro - 12/21/2017 10:26 AM CDT PHYSICAL THERAPY [...] Current Oral Intake: Improving Estimated Calorie Needs: 0103-6152 (30-35 kcals/kg per DBW 55.3kg) Estimated Protein Needs: 83-111 (1.5-2 gm/kg per DBW 55.3kg) Oral Diet Order: Regular Beata Kaiser is a 52 y.o. 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 (Pt's [...] tolerance. Recommendation: Recommend switching to Diabetic Diet 1625-6160 kcals due to Pt's h/o DM and [...] Nneka Thompson MS, RD, LD, CNSC Pager [phone] Office [phone] * Annette Ling, RN - 12/20/2017 3:55 PM CDT When the patient was cleaned up, the PNC catheter was dislodged and laying in the bed. PNC had not been infusing since yesterday in the SICU. * Keiko Cao - 12/20/2017 3:28 PM CDT Unit It Senior Analyst checked chart for note taking regarding Unit assignments. The spiritual care team is available as needed, 12/04, through the wayland switchboard ([phone]). For immediate response, please page [phone]. For a response within 24 hours, please submit an order in O2 for a centrifugal drier operator consult or call the administrative voicemail at [phone]. Respectfully Submitted, . Keiko Cao Technology Administrator Extension [phone] * Ruth Abbott, PT - 12/20/2017 1:02 PM CDT PHYSICAL THERAPY NOTE Attempted to see patient this afternoon at scheduled time with plastic process technician. Patient just transferred off of SICU [...] arrived to unit. * Melba Forbes M.Div, [facility] - 12/20/2017 11:30 AM CDT It Senior Analyst Note: Admit Date: 12/13/2017 Reason for Visit: It Senior Analyst met with patient per her request for a centrifugal drier operator visit. It Senior Analyst introduced Spiritual Care and offered active listening as pt shared about her health issues and family. Shantell/Restorationism: Pt confirmed that she is Confucianist. Pt has recently gone to [employer] [facility] in [place], [place] with some co-workers. Pt states this confucianist is "more Nondenominational" bus she likes it saying the "hair and makeup designer provides a good message." Source of Purpose/Meaning: Pt's family appears to be important to her. One daughter, Lynn, was in pt's room and pt has another daughter and son plus her spouse. 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 Pt is not sure that she will be able to keep that same job, yet is hoping to be able to stay on doing more desk work. It Senior Analyst did not catch the name of her [...] support from her community and work. Interventions/Plan: It Senior Analyst provided supportive presence as pt shared about her situation. Pt requested prayer which centrifugal drier operator provided. Pt would appreciate follow-up visits and is not sure if she will go to another unit and later rehab as she continues to recover. It Senior Analyst also spoke individually to daughter Lynn and learned that she is with her first child. Pt has other grandchildren (ages 8 & 4) so this will be her third grandchild. Family is traveling back and forth from [place] to support pt. The spiritual care team is available as needed, 12/04, through the [employer] switchboard ([phone]). For immediate response, please page [phone]. For a response within 24 hours, please submit an order in O2 for a centrifugal drier operator consult or call the administrative voicemail at [phone]. Please page or use consult order if patient or family requests visit. Date/Time: User: Pager: [phone] 12/20/2017 1:11 PM Melba Forbes M.Div, [facility] PCU 5 PCU * Herminia [...] Tub: Tub/Shower Unit Prior Function Level Of Evergreen: Independent with ADLs and functional transfers Lives [...] continue to monitor -Rehab consult- appreciate recs -ANALOG DEVICE DESIGNER psych consult for coping, depression- appreciate assistance Dispo: continue inpatient care, transfer to floor Adrienne Zarate MD Pager [phone] * Ruth Abbott, PT - 12/19/2017 1:33 [...] / Cognitive Status: Alert;Oriented;Cooperative;Follows Commands Persons Present: Edm Operator;Daughter Pain: Patient complains of pain;Before activity;During activity;Patient does not rate pain Pain Location: Left;Hip Pain Interventions: Patient pre-medicated;Patient agrees to participate in therapy with modifications to session;Patient encouraged to use SIDING INSTALLER/PNC (IV) Precautions: NGT, 1 MANNY drain L [...] 52 y.o. female : 1965 MRN# : [id number] PROCEDURE: Procedure(s) with comments: JAMIL PELVECTOMY - [...] us with any questions. Anesthesia Pain pager: [phone] Allergies Allergen Reactions Cephalexin SEE COMMENTS Face [...] removed, tolerating CLD. Issues with pain after SIDING INSTALLER removed. Continues to have flatus. +BM. Objective: [...] to floor tomorrow Kristie Cruz MD Pager [phone] * Chris Badillo MD - 12/19/2017 6:31 [...] 52 y.o. female : 1965 MRN# : [id number] PROCEDURE: Procedure(s) with comments: JAMIL PELVECTOMY - [...] transition to oral analgesics Anesthesia Pain pager: [phone] Allergies Allergen Reactions Cephalexin SEE COMMENTS Face [...] 20 mmol Intravenous ONCE Continuous Infusions: bupivacaine SIDING INSTALLER 0.125% in NS 50mL epidural infusion syr [...] continue ICU care Kristie Cruz MD Pager [phone] * Harry Moore MD - 12/18/2017 6:47 [...] - 100 MG/DL Final Medications: gtts bupivacaine SIDING INSTALLER 0.125% in NS 50mL epidural infusion syr [...] ASSESSMENT NOTE Patient Name: Beata Kaiser Room/Bed: [place] [address] Admitting Diagnosis: Pelvic mass [R19.00] Pelvic mass [...] Tub: Tub/Shower Unit Prior Function Level Of Evergreen: Independent with ADLs and functional transfers Lives [...] address most appropriate level of rehabilitation placement [phone]). Therapist: Tanya Spain OT Date: 12/17/2017 * [...] with modifications to session;Patient encouraged to use SIDING INSTALLER/PNC (IV) Precautions: Epidural,NGT, 1 MANNY drain L [...] Current Oral Intake: NPO Estimated Calorie Needs: 5115-5632 (30-35 kcals/kg per DBW 65.8 kg ) [...] am. 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 EMR [...] Nneka Thompson MS, RD, LD, CNSC Pager [phone] Office [phone] * Gagan Dunlap, DO - 12/17/2017 11:57 AM CDT Formatting of this note may be different from the original. Anesthesiology Acute Pain Service Date of Service: 12/17/2017 Name: Beaat Kaiser is a 52 y.o. female : 1965 MRN# : [id number] PROCEDURE: Procedure(s) with comments: JAMIL PELVECTOMY - CASE LENGTH 5 HOURS CYSTORRHAPHY AND BLADDER NECK REPAIR, CYSTOSCOPY, LEFT ILIAC EXPOSURE POD #: 3, PCEA day 2 ANALGESIA TECHNIQUE Epidural catheter: Bupi 0.125% ADJUNCT ANALGESIA MEDICATIONS dilaudid acetaminophen PO gabapentin TREATMENT PLAN Continue use of epidural for pain management and discontinue SIDING INSTALLER and convert to dilaudid PRN. Bolused epidural with 1% lidocaine and increased concentration now that hemodynamically stable. Anesthesia Pain pager: [phone] Allergies Allergen Reactions Cephalexin SEE COMMENTS Face [...] tube QDAY before breakfast Continuous Infusions: bupivacaine SIDING INSTALLER 0.125% in NS 50mL epidural infusion syr [...] improved pain control. * Melba Forbes M.Div [facility] - 12/17/2017 11:30 AM CDT It Senior Analyst Note: Admit Date: 12/13/2017 It Senior Analyst attempted to meet with patient, but pt was sleeping and did not awaken to her name. No family members were present. Please page or use consult order if patient or family requests visit. It Senior Analyst will continue to follow. Date/Time: User: Pager: [phone] 12/17/2017 1:45 PM Melba Forbes M.Div [facility] PCU 2 PCU * Adrienne [...] continue ICU care Adrienne Zarate MD Pager [phone] * Casa George MD - 12/17/2017 8:43 [...] Depression 12/14/2017 Anxiety 12/14/2017 DM (diabetes mellitus) ([facility]) 12/14/2017 Hypothyroidism 12/14/2017 Pelvic mass in female 12/13/2017 Pelvic mass 11/30/2017 Mass 11/24/2017 Chondrosarcoma ([facility]) 11/24/2017 S: ALE. C/o some pain this [...] postoperative anemia Depression Anxiety DM (diabetes mellitus) ([facility]) Hypothyroidism Hemorrhagic shock ([facility]) Plan: Neuro Acute pain. anesthesia pain on [...] - 100 MG/DL Final Medications: gtts bupivacaine SIDING INSTALLER 0.0625% in NS 50mL epidural infusion syr [...] 52 y.o. female : 1965 MRN# : [id number] PROCEDURE: Procedure(s) with comments: JAMIL PELVECTOMY - CASE LENGTH 5 HOURS CYSTORRHAPHY AND BLADDER NECK REPAIR, CYSTOSCOPY, LEFT ILIAC EXPOSURE POD #: 2, PCEA day 1 ANALGESIA TECHNIQUE Epidural catheter: bupivacaine 0.0625% ADJUNCT ANALGESIA MEDICATIONS dilaudid acetaminophen PO gabapentin TREATMENT PLAN Continue use of epidural for pain management and discontinue SIDING INSTALLER and convert to dilaudid PRN Anesthesia Pain pager: [phone] Allergies Allergen Reactions Cephalexin SEE COMMENTS Face [...] SOLP (Cabinet Override) NOW Continuous Infusions: bupivacaine SIDING INSTALLER 0.0625% in NS 50mL epidural infusion syr [...] Pain much better controlled with epidural and SIDING INSTALLER. Complains of a sore throat and some [...] continue ICU care Adrienne Zarate MD Pager [phone] * Valerie Couch MD - 12/16/2017 6:52 [...] on 2L Pulmonary toilet, encourage IS GI/FEN PNO-[id number] 2.9, ARBF NGT: 1L pepcid Zofran prn [...] - 100 MG/DL Final Medications: gtts bupivacaine SIDING INSTALLER 0.0625% in NS 50mL epidural infusion syr HYDROmorphone (DILAUDID) SIDING INSTALLER 11 mg/NS 55mL infusion syr (std conc)(premade [...] epidural -- PNC -- gabapentin -- dilaudid SIDING INSTALLER depression -- Wellbutrin -- buspar CV Mildly [...] - 100 MG/DL Final Medications: gtts bupivacaine SIDING INSTALLER 0.0625% in NS 50mL epidural infusion syr HYDROmorphone (DILAUDID) SIDING INSTALLER 11 mg/NS 55mL infusion syr (std conc)(premade [...] (ZOFRAN) IV Q6H PRN Vania Hay MD 5084 Associated attestation - Harris Hurst MD - [...] the resident physician, nursing, RT, pharmacy and design and sales consultant staff. I directly supervised the [...] PhD GALA FACS Surgical Critical Care Pager [phone] Date: 12/16/2017 * Casa George MD - [...] change performed. Net weight of drainage on [id number]. Ortho team paged (Dr. Swanson). * Gagan Dunlap DO - 12/15/2017 2:36 PM CDT Formatting of this note may be different from the original. Anesthesiology Acute Pain Service Date of Service: 12/15/2017 Name: Beata Kaiser is a 52 y.o. female : 1965 MRN# : [id number] PROCEDURE: Procedure(s) with comments: JAMIL PELVECTOMY - CASE LENGTH 5 HOURS CYSTORRHAPHY AND BLADDER NECK REPAIR, CYSTOSCOPY, LEFT ILIAC EXPOSURE POD #: 1 ANALGESIA TECHNIQUE Epidural catheter: bupivacaine 0.0625% Bolus: 4 mL Delay: 20 minutes Basal Infusion: 6 mL/hr ADJUNCT ANALGESIA MEDICATIONS dilaudid acetaminophen PO gabapentin Ketamine gtt TREATMENT PLAN Continue use of SIDING INSTALLER for pain management, Continue use of epidural for pain management and Modification in therapy to improve pain control Epidural placed today once determined patient would not be therapeutically anticoagulated. Added ketamine gtt as adjunct. Continue dilaudid SIDING INSTALLER. Will dc the PNC catheter since epidural in place. Anesthesia Pain pager: [phone] Allergies Allergen Reactions Cephalexin SEE COMMENTS Face [...] tube QDAY before breakfast Continuous Infusions: bupivacaine SIDING INSTALLER 0.0625% in NS 50mL epidural infusion syr bupivacaine SIDING INSTALLER PNC 0.125% infusion syringe HYDROmorphone (DILAUDID) SIDING INSTALLER 11 mg/NS 55mL infusion syr (std conc)(premade [...] continue ICU care Adrienne Zarate MD Pager [phone] * Ruma Reynolds RN - 12/15/2017 12:30 [...] provide intervention as able. Joanne Abernathy, OTR/L [phone] * Valerie Couch MD - 12/15/2017 9:29 [...] epidural -- PNC -- gabapentin -- dilaudid SIDING INSTALLER depression -- Wellbutrin -- buspar CV Mildly [...] 12/15/17 0720 Gross per 24 hour Intake 47088.76 ml Output 5880 ml Net 5520.76 ml [...] - 100 MG/DL Final Medications: gtts bupivacaine SIDING INSTALLER PNC 0.125% infusion syringe HYDROmorphone (DILAUDID) SIDING INSTALLER 11 mg/NS 55mL infusion syr (std conc)(premade [...] (ZOFRAN) IV Q6H PRN Harry Moore MD 1790 ATTESTATION.. I have seen, personally fully evaluated, [...] functional in the mean time a Fentanyl SIDING INSTALLER at 10mcg q10min was given to the patient to help decrease her pain. Keith Garcia DO CA-1, Anesthesiology Pager [phone] * Eunice Helms, LELAND - 12/14/2017 12:49 [...] Date: 12/13/2017 Banuelos AC=Airway clearance AM=Aerosolized medication BA=[place] aerosol DB&C=Deep breathe & cough FEV1=Forced expiratory volume in first second) IC=Inspiratory capacity LE=Lung expansion MDI=Metered dose inhaler Neb=Nebulizer O2=Oxygen Oxim=Oximetry PEFR=Peak expiratory flow rate NETWORK SYSTEMS ENGINEER=Rapid Response Team * Mita Meyer RN - [...] 24 hours): FSBS (Manual): (!) 160 (12/30/17 1297) Glucose: (!) 165 (12/30/17 4278) POC Glucose (Download): (!) 160 (12/30/17 4707) I have examined the patient, and there [...] Pager Consult Orders: CONSULT COLO-RECTAL SURGERY PHYSICIAN [[id number]] ordered by Montez Agudelo DO at 12/26/17 [...] plan of care. Ramos Cheatham DO Pager: [phone] __ HPI: Beata Kaiser is a 52 [...] PELVECTOMY performed by Tamiko Luther MD at [facility] OR/Periop URETER STENT PLACEMENT Bilateral 12/14/2017 CYSTORRHAPHY [...] 0401) POC Glucose (Download): (!) 215 (12/26/17 2432) Ramos Cheatham DO Pager:[phone] * Spencer Purcell MD - 12/14/2017 6:04 [...] Marino Real MD PGY-2 Urology Resident Pager: [phone] __ HPI: Beata Kaiser is a 52 [...] for hemipelvectomy -Clear liquid diet, NPO at [place] -Bowel prep -Neomycin/erythromycin oral -heparin drip for DVT, stop at [place] prior to procedure -Vascular surgery to assist and is aware -Urology for stent placement prior to procedure and is aware -General surgery consult for intraoperative assistance -Labs -Resume home meds -4 units pRBCs held for OR tomorrow Patient discussed with Dr. Ashkan Zarate MD 4858 History of Present Illness: Beata Kaiser is [...] nerve or vessel damage were discussed. Indications: Sheet Ironworker IV therapy, TPN Procedure: Under sterile conditions [...] With My Assessment? Yes Wound Base Assessment Black;Temple;Gallardo Surrounding Skin Assessment Intact Wound Site Closure [...] BSN Wound Ostomy Nursing Consult Service Office: [phone] Pager: [phone] After hours Wound/Ostomy team pager : [phone] * Emma Payton RN - 01/07/2018 4:30 [...] Education Nursing Clinical Excellence [facility] [email or web address] [phone] office [phone] pager * Nani Mcelroy RN - 01/03/2018 9:31 AM CDT Associated Order(s): CONSULT WOUND/OSTOMY TEAM Wound Ostomy Note NAME:Beata Kaiser :1965 AGE: 52 y.o. ADMISSION DATE: 12/13/2017 DAYS ADMITTED: LOS: 21 days Reason for Consult/Visit: ostomy education Pt seen 12/31 Will follow up as appropriate for education Nani Mcelroy RN, BSN Wound Ostomy Nursing Consult Service Office: [phone] Pager: [phone] After hours Wound/Ostomy team pager : [phone] * Kalie Sibley MBBS - 12/31/2017 4:44 [...] with stress hyperglycemia A1c 6.5 , controlled AUTOMOTIVE WORKER regimen: Metformin thousand milligrams twice a day, [...] ACEi/ARB: Yes On Statin: yes 2. 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 Kalie Sibley Endocrine Fellow Pager # [phone] 12/31/2017 Associated attestation - Marco Payne MD [...] Text paged Harry Moore, Surgery Ortho resident salon customer experience specialist ([phone]) to ask if they had considered an [...] Education Nursing Clinical Excellence [facility] [email or web address] [phone] office [phone] pager * Nneka Thompson RD - 12/29/2017 [...] Units/ sodium bicarbonate 650 mg (#) PRN (Exchange Teller from Rx) Electrolyte Treatments: None given yesterday [...] 12/14. 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 Pt's [...] fellow RD, all of Pt's intake of [place] shakes may not be included in the [...] start. TPN to be held in the [facility] fridge overnight until Pt has appropriate central [...] Thompson MS, RD, LD, [facility] Pager [phone] Office [phone] * Anita Everett RN - 12/28/2017 1:43 [...] cut pouch. Explained to pt that an manager office will start teaching once the stoma has been placed. Questions answered. Anita Everett, RN, BSN, CMSRN, CWON Wound Ostomy Nursing Consult Service Office: [phone] Pager: [phone] After Hours Wound/Ostomy Team Pager: [phone] * Emma See, RD - 12/28/2017 12:34 [...] Diet Order: Six Small Meals Oral Supplement: [place] Breakfast Essentials No Sugar Added, Protein Powder, TID Intake (calories) Daily Average : 600 kilocalories (35% est needs) Intake (protein) Daily Average : 33 grams (33% est needs) Current EN Order: Isosource 1.5 @ 80ml/hr x's 8 hrs (0644-2061). At goal will provide: 960 kcal (58% [...] counted as part of leslie count. Recommendation: 6345-1291 Consistent Carb Diet. Protein shakes between meals, made with [place] Breakfast Essentials (NO SUGAR ADDED), skim milk, [...] Hours Status: Not met;Ongoing Emma See, RD #[phone]. * Emma Payton RN - 12/28/2017 12:30 [...] how she struggles to manage her diabetes. Duct Cleaner offered to follow up with instruction of [...] Education Nursing Clinical Excellence [facility] [email or web address] [phone] office [phone] pager * Emma Payton RN - 12/28/2017 8:06 AM CDT Duct Cleaner spoke with Dr. Marcelino with consulted medicine [...] Name: Beata Kaiser Admit Date: 12/13/2017 Room: [facility]/ Reason for consult, "Hemipelvectomy, chronic pain, acute [...] medications and calcintonin. Virgen K, Anastasiia S, Mililani T, Predavidl H, Castro C, Catarina M, et al. Prevention of phantom limb pain and cortical reorganization in the early phase after amputation in humans. Soc Neurosci Abstr 2001; 28: 679187 NMDA antagonist memantine was used with good results perioperative and acute post-operatively. Calcitonin in phantom limb pain: a double-blind study Author: Ashwin Johnson Journal: Pain ([place]) ISSN: [id number] Date: 09/1991 Volume: 48 Issue: 1 Starting page number: [phone] Calcitonin infusions also showed good outcomes with [...] - Gabapentin 800 mg PO twice daily, 2635-6157 - Gabapentin 600 mg PO twice daily, 6150-0792 Anticipated D/C Planning: Non-pharmacological interventions. Multi-modal oral pain regimen. Summary: Ms. 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 Thank you for allowing our service to participate in the care of this patient. Please page with questions/concerns, team pager [phone]. Jasper Betts, MSN, RN- Clinical Nurse Coordinator Pain Management [phone] Current Medication Regimen: Current Facility-Administered Medications: acetaminophen [...] Adrienne Zarate MD, 25 mg at 12/19/17 3709 fentaNYL citrate PF (SUBLIMAZE) injection 50-100 mcg, [...] at one pharmacy. Last prescriptions written, [facility] -[phone] [facility] [address] [address] Colton Welch 12/03/2017 1 12/03/2017 OXYCODONE HCL 5 MG TABLET 75.0 7 CA ARTI [id number] [facility] ( 0964) Assessment: (W) Words to describe pain: Burning, I can still feel my leg and foot (I) Intensity of pain: severe Patient's personal pain goal: mild (L) Location of pain: Left lower extremity (D) Duration of pain: constant (A) Aggravating/Alleviating factors: Constant / not much, I think gabapentin is helping Last Bowel Movement: 12/26/2017 Opioid Calculations: Date: AUTOMOTIVE WORKER PT to surgery Oxycodone 60 mg Total [...] plan of care. Ramos Cheatham DO Pager: [phone] ATTESTATION I personally performed the banuelos portions [...] PELVIS performed by Tamiko Luther MD at [facility] OR/Periop PELVIS OSTEOTOMY Left 12/14/2017 JAMIL PELVECTOMY performed by Tamiko Luther MD at [facility] OR/Periop URETER STENT PLACEMENT Bilateral 12/14/2017 CYSTORRHAPHY [...] 0401) POC Glucose (Download): (!) 215 (12/26/17 1951) Ramos Cheatham DO Pager:[phone] * Nneka Thompson RD - 12/25/2017 4:52 [...] wt of 55.3kg.) Oral Diet Order: Diabetic 8200-8719 Kcal/day (60 g Carb/meal, 30 g Carb/HS [...] 12/14. 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 (Pt's [...] Thompson MS, RD, LD, [facility] Pager [phone] Office [phone] * Halima Miranda - 12/24/2017 3:42 PM CDT Associated Order(s): CONSULT PSYCHOLOGY Formatting of this note may be different from the original. 9115-5958 Pt was seen b/s for initial eval with no family or significant others present. Diagnosis: F33.0 Major depressive disorder, recurrent, mild; F41.1 Generalized anxiety disorder Requesting Physician:Elliot/Ashkan Reason for Request: Depression, coping Relevant History: The following history was taken from available medical records unless otherwise indicated. Pt is a 52 y.o., , female, RH admitted on 12/13/2017 to [facility] for a scheduled hemipelvectomy and [...] and 2 of her adult children in [place], [place]. Pt identified her grandchildren and family [...] Ph.D. Neurorehabilitation Psychology Postdoctoral Fellow Pager #: [phone] * Nani Mcelroy RN - 12/23/2017 1:53 [...] Type:: Wound Description (Comments): Wound Base Assessment Moist;Temple;Yellow 12/23/2017 1:00 PM Surrounding Skin Assessment Temple;Edema 12/23/2017 1:00 PM Wound Length (cm) (Wound [...] BSN Wound Ostomy Nursing Consult Service Office: [phone] Pager: [phone] After hours Wound/Ostomy team pager : [phone] * Berto Caldwell, - 12/23/2017 12:20 PM CDT Associated Order(s): CONSULT ADULT PSYCHIATRY PHYSICIAN Formatting of this note may be different from the original. PSYCHIATRY CONSULT NOTE Room/Bed: [place] [address] Admission Date: 12/13/2017 LOS: 10 days Consult [...] between 8am and 3pm on weekends at [phone]. Otherwise, page the compliance vice president salon customer experience specialist. Chief Concern: "feeling a little disoriented" History of Present Illness: Beata Kaisre is a 52 y.o. female with a [...] Notes having 3 grandchildren. Was working making [employer] at the [employer]. Social History Social History Marital status: Spouse [...] fair, appropriate for conversation Cognition: average Language: sami, fluent Fund of knowledge and vocabulary: average [...] and between 8am and 3pm on weekends [phone]. Otherwise, page the compliance vice president salon customer experience specialist. Staff name: Adrienne Negron, Date: 12/23/2017 * [...] Nani Lynch, Division of Infectious Diseases Pager [phone] History of Present Illness Beata Kaiser is [...] status/area of residence: lives with her Job/occupation: [employer] Travel history: [place] in Sep 2016 Environmental/outdoor/food exposures: hospitalized from [...] atelectasis and/or pneumonia. Dominique Nelson MD Pager [phone] Infectious Diseases Fellow * Nani Mcelroy RN [...] and non-insulin dependent diabetes mellitus admitted to [facility] on 12/13/17 for scheduled left [...] BSN Wound Ostomy Nursing Consult Service Office: [phone] Pager: [phone] After hours Wound/Ostomy team pager : [phone] * Luis Sargent MD - 12/21/2017 9:49 AM CDT Associated Order(s): CONSULT INTERNAL MEDICINE PHYSICIAN Formatting of this note may be different from the original. General Consult Note Admission Date: 12/13/2017 LOS: 8 days Reason for Consult: Hyponatremia Consult type: Opinion with orders Assessment/Plan Beata Kaiser is a 52 y.o. female Hx of hypothyroidism and non-insulin dependent diabetes mellitus who presented to [facility] on 12/13/17 for scheduled left [...] needs further assistance, the service should page [phone] (24 hours a day/7 days a week) to discuss the case. History of Present Illness: Beata Kaiser is a 52 y.o. female Hx of hypothyroidism and non-insulin dependent diabetes mellitus who presented to [facility] on 12/13/17 for scheduled left [...] Pertinent radiology reviewed. Luis Sargent MD Pager [phone] * Hawk Jennings MD - 12/20/2017 11:12 AM CDT Associated Order(s): CONSULT REHABILITATION MEDICINE PHYSICIAN Formatting of this note may be different from the original. Physical Medicine & Rehabilitation Consult Note Date of Service: 12/20/2017 Beata Kaiser is a 52 y.o. female. : 1965 MRN# : [id number] Primary Insurance: [facility] Secondary Insurance: Tertiary Insurance: Financial Class: [...] a 52 y.o. female admitted to [facility] on 12/13/2017 with the following issues: S/p [...] acute inpatient rehabilitation. Other recommendations Impaired gait/mobility: AUTOMOTIVE WORKER pt was independent Currently requiring total assist Will benefit from continued work with PT to address mobility deficits Impaired ADL: AUTOMOTIVE WORKER pt was independent Currently requiring total assist [...] concerns. Hawk Jennings MD Rehab Consult Pager: [phone] History of Present Illness Hospital Course: Beata Kaiser is a 52 yo F who presented to [facility] on 12/13/17 for scheduled left [...] Pt has had ongoing pain issues since SIDING INSTALLER removed. Pt has been working with PT/OT for therapy needs. PM&R consulted for rehab recs for discharge planning. Pt excessively somnolent at time of exam due to pain. present bedside. Both endorse having large amount of family support at home to help once discharged from the hospital/rehab. Past Medical History Past Medical History: Diagnosis Date Anxiety Back pain Depression DM (diabetes mellitus) ([facility]) Past Surgical History Past Surgical History: Procedure [...] 12/20/2017 6:50 AM CDT Associated Order(s): CONSULT SERVICE ADVISOR, ANALOG DEVICE DESIGNER Formatting of this note may be different from the original. Inpatient Psychiatric Clinical Nurse Specialist- Initial Consult Pt. Name: Beata Kaiser Room: [id number]/ LOS: 7 Reason for consult: Patient s/p [...] are any concerns or questions. Ivette Wade [facility] Pager [phone] Office [phone] * Vania Hay MD - 12/14/2017 7:33 [...] placed, anesthesia managing. Tylenol, PRN fentanyl, gabapentin, AUTOMOTIVE WORKER buspar & wellbutrin CV: Currently HDS, no [...] -- 23.8 22.4 22.4 20.8* 19.2* 17.8* [id number] -- -- -- -- 98.8 99.2* 99.1* 99.0 99.4* 97.0 Vania Hay MD Pager: [phone] Associated attestation - Ken Carolina MD - [...] Date: 01/14/2018 Plan Anticipate pt discharging to [facility] at 3:30pm. Micki reviewed EMR and met with team. Pt is medically stable to discharge to [facility]. Interventions ? Support Support: Pt/Family Updates re:POC or DC Plan Micki updated pt regarding discharge planning. ? Info or Referral Information or Referral to Community Resources: Diagnosis-Related Community Resources ? Discharge Planning Micki spoke with Julia in admissions at [facility]. Insurance authorization has been received. Pt [...] Kaiser. Transportation Name, Phone and Availability #2: [phone]. Does the patient use Medicaid Transportation?: No ? Next Level of Care (Acute Psych discharges only) ? Discharge Disposition Durable Medical Equipment No service has been selected for the patient. Destination - Selection Complete Service Request Status Selected Specialties Address Phone Number Fax Number [facility] Selected Inpatient Rehabilitation Facility [address] [place] [address] [phone] Home Care No service has been selected [...] Informed MICKI that discussed case with medical receptionist biller as well and no concerns at this time. Per MICKI patient is getting wound vac dressing change at 1000 this morning. MICKI aware that still waiting on insurance authorization. 1359: Per Gissell (UR/CM for [facility]) patient has been approved for inpatient rehab. 1422: Notified Erika (MICKI) that rehab able to admit today. Transportation will be scheduled for 1530 via stretcher van with [facility]. MICKI to notify patient's primary RN of discharge time, rehab bed assignment of [phone] and unit phone# for report (). Please leave in any functioning IV access for transition to 's IP rehab unit. URMILA Catalan RN Inpatient Rehab Admission Nurse ([phone] or [phone]) * Patient Education - Amanda Juares - [...] Date: 01/11/2018 Plan Anticipate pt discharging to [facility] when medically stable. Micki reviewed EMR and met with team. Pt to have wound vac changed on W and F. Pt will need to be off all IV pain meds, and continuous fluids prior to admission at [facility]. Interventions ? Support Support: Pt/Family Updates re:POC or DC Plan Micki and HARVINDER met with pt at bedside and updated her on discharge planning and discussed DME. ? Info or Referral Information or Referral to Community Resources: Diagnosis-Related Community Resources ? Discharge Planning Micki spoke with Julia in admissions at [facility]- pt will need to participate in PT/OT daily. Looking at admission post wound vac change on Wednesday. ? Medication Needs ? Financial ? Legal ? Other Disposition ? Expected Discharge Date Expected Discharge Date: 01/14/18 ? Transportation Does the patient need discharge transport arranged?: No Transportation Name, Phone and Availability #1: Marvin Kaiser. Transportation Name, Phone and Availability #2: [phone]. Does the patient use Medicaid Transportation?: No ? Next Level of Care (Acute Psych discharges only) ? Discharge Disposition Durable Medical Equipment No service has been selected for the patient. [facility] Destination No service has been selected for the patient. Home Care No service has been selected for the patient. Dialysis/Infusion No service has been selected for the patient. Erika Werner, [facility] *[phone] * Operative Report (DICTATED ONLY) - Tamiko Luther MD - 01/11/2018 11:24 AM CDT THE [address] [address] PATIENT NAME: BEATA KAISER MR#/PT#: [id number] Page 2 OPERATIVE REPORT DATE OF OPERATION: 01/10/2018 SURGEON: Tamiko uLther MD PATTERN CHAIN BUILDER(S): Adrienne Zarate MD PREOPERATIVE DIAGNOSIS: Draining wound, [...] none Tamiko Luther MD KJT / MEDQ /[id number] cc: - Tamiko Luther MD * Anesthesia [...] Units/ sodium bicarbonate 650 mg(#) PRN ( Exchange Teller from Rx), simethicone Q6H PRN Diagnostic Tests [...] 52 y.o. female : 1965 MRN# : [id number] DATE OF OPERATION: 01/10/2018 Date: 01/10/2018 Preoperative [...] Disposition: PACU - yonas Zarate MD Pager [phone] Associated attestation - Tamiko Luther MD - 02/07/2018 1:54 PM CDT I performed the procedure with the resident. * Operative Report (DICTATED ONLY) - Spencer Purcell MD - 01/10/2018 10:06 AM CDT Formatting of this note may be different from the original. THE [address] [address] PATIENT NAME: BEATA KAISER MR#/PT#: [id number] Page 2 OPERATIVE REPORT DATE OF OPERATION: 01/10/2018 SURGEON: Spencer Purcell MD PATTERN CHAIN BUILDER(S): Davey Dove MD PREOPERATIVE DIAGNOSIS: Chondrosarcoma. POSTOPERATIVE [...] exchanged under sterile technique for a 22- [place] catheter with 10 mL sterile water in [...] Dictated by: Davey Dove MD / MEDQ /[id number] cc: - Spencer Purcell MD * Care [...] URMILA Catalan RN Inpatient Rehab Admission Nurse ([phone] or [phone]) * Patient Education - Denise Ortega - [...] Date: 01/05/2018 Plan Anticipate pt discharging to [facility] when medically stable. Sw reviewed EMR [...] Kaiser. Transportation Name, Phone and Availability #2: [phone]. Does the patient use Medicaid Transportation?: No [...] Young RN - 01/04/2018 4:38 PM CDT 1148-4917: Provided patient with verbal and written education re: [facility] rehab facility. Information included: members [...] DME: none Discharge Support: Marvin () works part time on the weekends Wednesday, Wednesday, Wednesday 6am-6pm, has an 18 y/o and lives with patient and is (due in February, both can not provide physical assist), 30 y/o daughter ( works part time) and boyfriend also lives with patient and can not provide physical assist. Patient's Occupation/Hobbies: Worked part time at [employer] ( [employer]). Enjoys fishing, doing yard work and being outdoors Goal(s): 1. Short term goals: "be as independent as possible" 2. custodial goals: "can't think of anything" Other: 1. [...] URMILA Catalan RN Inpatient Rehab Admission Nurse ([phone] or [phone]) * Case Mgmt DC Plan - Julia [...] URMILA Catalan RN Inpatient Rehab Admission Nurse ([phone] or [phone]) * Patient Education - Amanda Juares - [...] (TPN) 65 mL/hr at 12/30/172027 fentaNYL (SUBLIMAZE) SIDING INSTALLER 550 mcg/ NS 55 mL infusion syr (std conc)(premade ) lactated ringers infusion Stopped (12/30/17 1440) PRN and Respiratory Meds:alum/mag hydroxide/simeth Q6H PRN, calcium carbonate Q4H PRN, diazePAM Q6H PRN, diphenhydrAMINE Q6H PRN OR [DISCONTINUED] diphenhydrAMINE Q6H PRN, fentaNYL citrate PF Q1H PRN, naloxone PRN, ondansetron (ZOFRAN) IV Q6H PRN, oxyCODONE Q3H PRN, pancrelipase 20,000 Units/ sodium bicarbonate 650 mg(#) PRN (Exchange Teller from Rx) Diagnostic Tests Hematology: Lab Results [...] may be different from the original. THE [address] [address] PATIENT NAME: BEATA KAISER MR#/PT#: [id number] Page 3 OPERATIVE REPORT DATE OF OPERATION: 12/30/2017 SURGEON: Aimee Mccollum DO PATTERN CHAIN BUILDER(S): DO Montez Coyne DO PREOPERATIVE DIAGNOSIS: Nonhealing [...] Dictated by: Herberth Dean DO / MEDPing /[id number] cc: - Aimee Mccollum DO * Procedures (Immed Post or Bedside) - Montez Agudelo DO - 12/30/2017 11:42 AM CDT Formatting of this note may be different from the original. Brief Operative Note Name: Beata Kaiser is a 52 y.o. female : 1965 MRN# : [id number] DATE OF OPERATION: 12/30/2017 Date: 12/30/2017 Preoperative [...] PACU - stable Montez Agudelo DO Pager [phone] * Case Mgmt DC Plan - Erika Werner - 12/29/2017 3:58 PM CDT Formatting of this note may be different from the original. Case Management Progress Note NAME:Beata Kaiser : AGE: 52 y.o. ADMISSION DATE: 12/13/2017 DAYS ADMITTED: LOS: 16 days Todays Date: 12/29/2017 Plan Pt to OR for colostomy tomorrow. Anticipate pt discharging to [facility] when medically stable. Sw reviewed EMR and met with team. Interventions ? Support Support: Pt/Family Updates re:POC or DC Plan Sw met with pt, pt's , and pt's daughter Mica. Pt is now interested in [facility] at discharge. ? Info or Referral ? Discharge Planning Micki called Julia in admissions at [facility]- pt is on the list for Wednesday next week. ? Medication Needs ? Financial ? Legal ? Other Disposition ? Expected Discharge Date Expected Discharge Date: 01/03/18 ? Transportation Does the patient need discharge transport arranged?: No Transportation Name, Phone and Availability #1: Marvin Kaiser. Transportation Name, Phone and Availability #2: [phone]. Does the patient use Medicaid Transportation?: No ? Next Level of Care (Acute Psych discharges only) ? Discharge Disposition Durable Medical Equipment No service has been selected for the patient. Destination No service has been selected for the patient. Home Care No service has been selected for the patient. Dialysis/Infusion No service has been selected for the patient. Erika Werner, [facility] *[phone] * Care Plan - Anita Hines [...] Marvin. Transportation Name, Phone and Availability #2: [phone]. Does the patient use Medicaid Transportation?: No [...] Kaiser. Transportation Name, Phone and Availability #2: [phone]. Does the patient use Medicaid Transportation?: No ? Next Level of Care (Acute Psych discharges only) ? Discharge Disposition Durable Medical Equipment No service has been selected for the patient. Destination No service has been selected for the patient. Home Care No service has been selected for the patient. Dialysis/Infusion No service has been selected for the patient. Erika Werner [facility] *[phone] * Critical Results - Emely Paredes - 12/24/2017 10:48 AM CDT Critical result or procedure called (document test and value, and read back): Positive blood cultures on right arm drawn 4/5 at 1305. Gram positive cocci resembling Strep. Time MD/DIAL REFINISHER Notified: 1048 MD/DIAL REFINISHER Name: Dr. Zarate notified at this time MD/DIAL REFINISHER Response/Orders Given: calling infectious disease to notify [...] Kaiser. Transportation Name, Phone and Availability #2: [phone]. Does the patient use Medicaid Transportation?: No ? Next Level of Care (Acute Psych discharges only) ? Discharge Disposition Durable Medical Equipment No service has been selected for the patient. [facility] Destination No service has been selected for the patient. [facility] Home Care No service has been selected for the patient. [facility] Dialysis/Infusion No service has been selected for the patient. Erika Werner [facility] *[phone] * Patient Education - Kerline Kruger [...] with pt at bedside regarding discharge planning. [facility] is out of network. provided pt with in network lists of SNF in both [place] area and near pt's home. Sw will follow up with pt tomorrow. ? Info or Referral ? Discharge Planning tasked [facility] to email list of in network facilities to Sw. ? Medication Needs ? Financial ? Legal ? Other Disposition ? Expected Discharge Date Expected Discharge Date: 12/27/17 ? Transportation Does the patient need discharge transport arranged?: No Transportation Name, Phone and Availability #1: Marvin Kaiser. Transportation Name, Phone and Availability #2: [phone]. Does the patient use Medicaid Transportation?: No [...] Alanna Robertson - 12/22/2017 2:43 PM CDT CAKE TESTER Note Emailed [facility] with a in-network list of SNF facilities per the request of ZULEIKA Redd [facility] For additional assistance please contact ZULEIKA Redd *[phone] * Patient Education - Hawk Ortega RN [...] like Sw to send a referral to [facility] in [place], as they are from there. Family has not had time to review other options. Sw faxed referral to [facility]. Address: [address] [place] [phone] Primary Sw will continue to follow for discharge planning. ? Medication Needs ? Financial ? Legal ? Other Disposition ? Expected Discharge Date Expected Discharge Date: 12/23/17 ? Transportation Does the patient need discharge transport arranged?: No Transportation Name, Phone and Availability #1: Marvin Kaiser. Transportation Name, Phone and Availability #2: [phone]. Does the patient use Medicaid Transportation?: No ? Next Level of Care (Acute Psych discharges only) ? Discharge Disposition Durable Medical Equipment No service has been selected for the patient. [facility] Destination No service has been selected for the patient. Home Care No service has been selected for the patient. Dialysis/Infusion No service has been selected for the patient. Mica Pruitt, [facility] *[phone] * Patient Education - Wilda Trivedi [...] Kaiser. Transportation Name, Phone and Availability #2: [phone]. Does the patient use Medicaid Transportation?: No ? Next Level of Care (Acute Psych discharges only) ? Discharge Disposition Durable Medical Equipment No service has been selected for the patient. [facility] Destination No service has been selected for the patient. Home Care No service has been selected for the patient. Dialysis/Infusion No service has been selected for the patient. Erika Werner, [facility] *[phone] * Care Plan - Monica Sal [...] of pain Outcome: Goal Ongoing Encourage Epidural SIDING INSTALLER Problem: Tissue Perfusion, Altered Goal: Adequate tissue [...] may be different from the original. THE [address] [address] PATIENT NAME: BEATA KAISER MR#/PT#: [id number] Page 3 OPERATIVE REPORT DATE OF OPERATION: 12/14/2017 SURGEON: Spencer Purcell MD PATTERN CHAIN BUILDER(S): Sarah Schwab MD PREOPERATIVE DIAGNOSIS: Left retroperitoneal/pelvic [...] with all pressure points padded. A lubricated 21[place] cystoscope with 21-[place]izen [place] sheath was assembled and placed in the bladder. 360 degree panendoscopy was performed. There was no masses or lesions present. There was no stone, diverticula, trabeculations, or signs of malignancy within the bladder itself. Both ureteral orifices were identified. The left ureteral orifice was intubated with a 0.38 sensor wire and advanced into the kidney. This was then intubated with a 5-Citizen [place] Pollack catheter, which was placed over the wire and then deployed. A 16-Citizen [place] Melchor catheter was placed in the bladder [...] subsequent muscle and cutaneous flap created. The 16-[place]izen [place] catheter, which was seen in place revealed [...] structures and alteration in anatomy. A new 20-[place]izen [place] catheter was placed in the bladder and infused with saline and found to have no evidence of extravasation. We then turned the remainder of the case over to the orthopedic surgery service. ESTIMATED BLOOD LOSS: 100 cc SPECIMENS REMOVED: None ATTESTATION I performed this procedure with a resident. Staff name: Spencer Purcell MD Date: 01/03/2018 Spencer Purcell MD SHAHBAZ / MEDQ /[id number] cc: - Spencer Purcell MD * Procedures [...] patient and/or family and/or designated Power of Principal Data Architect. I personally accomplished the pre-operative Time Out. I was personally present for the critical portions of the procedure. I directly observed the resident physician performing other appropriate portions of the procedure, discussed the case with the resident physician, and concur with the resident physician's documentation of the procedure, unless otherwise noted. Harris Hurst MD PhD GALA FACS Surgical Critical Care Pager [phone] Date: 12/16/2017 * Operative Report (DICTATED ONLY) - Tamiko Luther MD - 12/15/2017 2:29 PM CDT [address] [address] PATIENT NAME: BEATA KAISER MR#/PT#: [id number] Page 2 OPERATIVE REPORT DATE OF OPERATION: 12/14/2017 SURGEON: Tamiko Luther MD CO-SURGEON(S): MD Aimee Brambila DO Kirk Hance, MD Axel Thors, DO PATTERN CHAIN BUILDER(S): Adrienne Zarate MD PREOPERATIVE DIAGNOSIS: Intermediate to [...] permanent) Tamiko Luther MD KJT / MEDQ /[id number] cc: - Tamiko Luther MD - Spencer [...] tube QDAY before breakfast Continuous Infusions: bupivacaine SIDING INSTALLER PNC 0.125% infusion syringe HYDROmorphone (DILAUDID) SIDING INSTALLER 11 mg/NS 55mL infusion syr (std conc)(premade [...] 52 y.o. female : 1965 MRN# : [id number] DATE OF OPERATION: 12/14/2017 Date: 12/14/2017 Preoperative [...] much as possible Adrienne Zarate MD Pager [phone] Associated attestation - Tamiko Luther MD - 12/24/2017 1:37 PM CDT I performed the hemipelvectomy and hemisacrectomy with the resident. 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 POSTOPERATIVE DIAGNOSIS: Same. OPERATIVE PROCEDURE: 1. Repair of the left common and external iliac vein by direct venous repair within the abdominal cavity and pelvis (CPT code 20684). 2. Mobilization and exposure of the common [...] None. Pio Malagon DO AT / MEDQ /[id number] cc: - Pio Malagon DO * Operative Report (Direct Entry) - Spencer Purcell MD - 12/14/2017 8:36 AM CDT Formatting of this note may be different from the original. OPERATIVE REPORT Name: Beata Kaiser is a 52 y.o. female : 1965 MRN# : [id number] DATE OF OPERATION: 12/14/2017 Surgeon(s) and Role: [...] of the procedure. Darius Dejesus MD Pager [phone] ATTESTATION I performed this procedure with a [...] with questions or concerns. Patient Address/Phone [address] [address] (home) Emergency Contact Extended Emergency Contact Information Primary Emergency Contact: [facility] Relation: Spouse Secondary Emergency Contact: [facility] Relation: Daughter Healthcare Directive None on file. Transportation Does the patient need discharge transport arranged?: No Transportation Name, Phone and Availability #1: Marvin Kaiser. Transportation Name, Phone and Availability #2: [phone]. Does the patient use Medicaid Transportation?: No [...] Resources ? Coverage Primary Insurance: Commercial insurance ([facility]/ [facility] PPO.) ? 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 Financial Assistance Needed? None at this time. Psychosocial Needs ? Mental Health Mental Health History: No ? Substance Use History Substance Use History Screen: No ? Other None. Current/Previous Services ? PCP Della Cuellar, , ? Pharmacy [address] [address] ? Durable Medical Equipment Durable Medical Equipment [...] In the past Name of rehab location/group: [facility]. Would patient return for future services?: Yes OT: No PREVOCATIONAL/REHABILITATION COUNSELOR: No ? Intermediate Facility/Long Term SNF: No NH: No ? Inpatient Rehab IPR: No ? Long-Term Acute Care Hospital LTACH: No ? Acute Hospital Stay Acute Hospital Stay: In the past Was patient's stay within the last 30 days?: Yes When did patient receive care?: 2 weeks ago. Name of hospital: [facility]. Andra Tejada, RN, BSN, MSN Integrative Nurse Marine Biologist Pager [phone] in this encounter Plan of Treatment Date [...] MG/DL Specimen Performing Laboratory MAIN LAB [address] [place] [address] * POC GLUCOSE (01/14/2018 7:16 AM) Component Value Ref Range Glucose, POC 144 (H) 70 - 100 MG/DL Specimen Performing Laboratory MAIN LAB [address] [place] [address] * LIVER FUNCTION PANEL (01/14/2018 4:40 AM) [...] G/DL Specimen Performing Laboratory MAIN LAB [address] [place] [address] * BASIC METABOLIC PANEL (01/14/2018 4:40 AM) [...] questions. Specimen Performing Laboratory Blood MAIN LAB [address] [place] [address] * CBC (01/14/2018 4:40 AM) Component Value [...] FL Specimen Performing Laboratory Blood MAIN LAB [address] [place] [address] * POC GLUCOSE (01/14/2018 2:54 AM) Component Value Ref Range Glucose, POC 218 (H) 70 - 100 MG/DL Specimen Performing Laboratory MAIN LAB [address] [place] [address] * POC GLUCOSE (01/13/2018 9:07 PM) Component Value Ref Range Glucose, POC 125 (H) 70 - 100 MG/DL Specimen Performing Laboratory MAIN LAB [address] [place] [address] * POC GLUCOSE (01/13/2018 5:46 PM) Component Value Ref Range Glucose, POC 136 (H) 70 - 100 MG/DL Specimen Performing Laboratory MAIN LAB [address] [place] [address] * POC GLUCOSE (01/13/2018 12:09 PM) Component Value Ref Range Glucose, POC 89 70 - 100 MG/DL Specimen Performing Laboratory MAIN LAB [address] [place] [address] * POC GLUCOSE (01/13/2018 7:40 AM) Component Value Ref Range Glucose, POC 111 (H) 70 - 100 MG/DL Specimen Performing Laboratory MAIN LAB [address] [place] [address] * BASIC METABOLIC PANEL (01/13/2018 3:42 AM) [...] questions. Specimen Performing Laboratory Blood MAIN LAB [address] [place] [address] * CBC (01/13/2018 3:42 AM) Component Value [...] - 11 FL Specimen Performing Laboratory Blood [facility] [address] [place] [address] * TRIGLYCERIDE (01/13/2018 3:42 AM) Component Value Ref Range Triglycerides 254 (H) <150 MG/DL Specimen Performing Laboratory Blood [facility] [address] [place] [address] * POC GLUCOSE (01/13/2018 2:33 AM) Component Value Ref Range Glucose, POC 200 (H) 70 - 100 MG/DL Specimen Performing Laboratory [facility] [address] [place] [address] * POC GLUCOSE (01/12/2018 10:39 PM) Component Value Ref Range Glucose, POC 87 70 - 100 MG/DL Specimen Performing Laboratory [facility] [address] [place] [address] * POC GLUCOSE (01/12/2018 5:55 PM) Component Value Ref Range Glucose, POC 107 (H) 70 - 100 MG/DL Specimen Performing Laboratory [facility] [address] [place] [address] * POC GLUCOSE (01/12/2018 12:24 PM) Component Value Ref Range Glucose, POC 67 (L) 70 - 100 MG/DL Specimen Performing Laboratory [facility] [address] [place] [address] * POC GLUCOSE (01/12/2018 7:42 AM) Component Value Ref Range Glucose, POC 141 (H) 70 - 100 MG/DL Specimen Performing Laboratory [facility] [address] [place] [address] * BASIC METABOLIC PANEL (01/12/2018 6:12 AM) [...] Pharmacist for questions. Specimen Performing Laboratory Blood [facility] [address] [place], [place] [id number] * CBC (01/12/2018 6:12 AM) Component Value [...] - 11 FL Specimen Performing Laboratory Blood [facility] [address] [place], [place] [id number] * POC GLUCOSE (01/12/2018 2:17 AM) Component Value Ref Range Glucose, POC 184 (H) 70 - 100 MG/DL Specimen Performing Laboratory [facility] [address] [place] [address] * POC GLUCOSE (01/11/2018 8:39 PM) Component Value Ref Range Glucose, POC 196 (H) 70 - 100 MG/DL Specimen Performing Laboratory [facility] [address] [place] [address] * POC GLUCOSE (01/11/2018 5:08 PM) Component Value Ref Range Glucose, POC 128 (H) 70 - 100 MG/DL Specimen Performing Laboratory [facility] [address] [place] [address] * POC GLUCOSE (01/11/2018 11:27 AM) Component Value Ref Range Glucose, POC 160 (H) 70 - 100 MG/DL Specimen Performing Laboratory [facility] [address] [place] [address] * POC GLUCOSE (01/11/2018 7:17 AM) Component Value Ref Range Glucose, POC 218 (H) 70 - 100 MG/DL Specimen Performing Laboratory MAIN LAB [address] [place] [address] * BASIC METABOLIC PANEL (01/11/2018 3:40 AM) [...] questions. Specimen Performing Laboratory Blood MAIN LAB [address] [place] [address] * CBC (01/11/2018 3:40 AM) Component Value [...] FL Specimen Performing Laboratory Blood MAIN LAB [address] [place] [address] * POC GLUCOSE (01/11/2018 3:33 AM) Component Value Ref Range Glucose, POC 199 (H) 70 - 100 MG/DL Specimen Performing Laboratory MAIN LAB [address] [place] [address] * POC GLUCOSE (01/10/2018 8:45 PM) Component Value Ref Range Glucose, POC 297 (H) 70 - 100 MG/DL Specimen Performing Laboratory [facility] [address] [place] [address] * POC GLUCOSE (01/10/2018 6:05 PM) Component Value Ref Range Glucose, POC 290 (H) 70 - 100 MG/DL Specimen Performing Laboratory [facility] [address] [place] [address] 214[address] * POC GLUCOSE (01/10/2018 1:53 PM) Component Value Ref Range Glucose, POC 140 (H) 70 - 100 MG/DL Specimen Performing Laboratory [facility] [address] [place] [address] * POC GLUCOSE (01/10/2018 10:49 AM) Component Value Ref Range Glucose, POC 87 70 - 100 MG/DL Specimen Performing Laboratory [facility] [address] [place] [address] * FLUORO MOBILE IN OR (01/10/2018 9:51 AM) Specimen Performing Laboratory [facility]ANT[facility] Yi This order has been auto finalized and does not contain a result. * POC GLUCOSE (01/10/2018 8:43 AM) Component Value Ref Range Glucose, POC 100 70 - 100 MG/DL Specimen Performing Laboratory [facility] [address] [place] [address] * POC GLUCOSE (01/10/2018 8:02 AM) Component Value Ref Range Glucose, POC 101 (H) 70 - 100 MG/DL Specimen Performing Laboratory [facility] [address] [place] [address] * POC GLUCOSE (01/10/2018 3:39 AM) Component Value Ref Range Glucose, POC 131 (H) 70 - 100 MG/DL Specimen Performing Laboratory [facility] [address] [place] [address] 469[address] * TRIGLYCERIDE (01/10/2018 3:30 AM) Component Value Ref Range Triglycerides 195 (H) <150 MG/DL Specimen Performing Laboratory Blood [facility] [address] [place] [address] * BASIC METABOLIC PANEL (01/10/2018 3:30 AM) [...] questions. Specimen Performing Laboratory Blood MAIN LAB [address] [place] [address] * CBC AND DIFF (01/10/2018 3:30 AM) [...] K/UL Specimen Performing Laboratory Blood MAIN LAB [address] [place] [address] * POC GLUCOSE (01/09/2018 8:37 PM) Component Value Ref Range Glucose, POC 150 (H) 70 - 100 MG/DL Specimen Performing Laboratory MAIN LAB [address] [place] [address] * POC GLUCOSE (01/09/2018 7:37 PM) Component Value Ref Range Glucose, POC 135 (H) 70 - 100 MG/DL Specimen Performing Laboratory [facility] [address] [place] [address] * POC GLUCOSE (01/09/2018 6:20 PM) Component Value Ref Range Glucose, POC 135 (H) 70 - 100 MG/DL Specimen Performing Laboratory [facility] [address] [place] [address] * FREE T4 (FREE THYROXINE) ONLY (01/09/2018 1:40 PM) Component Value Ref Range T4-Free 0.9 0.6 - 1.6 NG/DL Specimen Performing Laboratory Blood [facility] [address] [place], [place] [address] * THYROID STIMULATING HORMONE-TSH (01/09/2018 1:40 PM) Component Value Ref Range TSH 16.790 (H) 0.35 - 5.00 MCU/ML Specimen Performing Laboratory Blood [facility] [address] [place] [address] * POC GLUCOSE (01/09/2018 1:25 PM) Component Value Ref Range Glucose, POC 102 (H) 70 - 100 MG/DL Specimen Performing Laboratory [facility] [address] [place], [place] [address] * POC GLUCOSE (01/09/2018 8:12 AM) Component Value Ref Range Glucose, POC 150 (H) 70 - 100 MG/DL Specimen Performing Laboratory [facility] [address] [place], [place] [address] * BASIC METABOLIC PANEL (01/09/2018 3:17 AM) [...] questions. Specimen Performing Laboratory Blood MAIN LAB [address] [place] [address] * CBC AND DIFF (01/09/2018 3:17 AM) [...] K/UL Specimen Performing Laboratory Blood MAIN LAB [address] [place] [address] * POC GLUCOSE (01/09/2018 3:14 AM) Component Value Ref Range Glucose, POC 154 (H) 70 - 100 MG/DL Specimen Performing Laboratory MAIN LAB [address] [place] [address] * POC GLUCOSE (01/08/2018 9:01 PM) Component Value Ref Range Glucose, POC 240 (H) 70 - 100 MG/DL Specimen Performing Laboratory MAIN LAB [address] [place] [address] * POC GLUCOSE (01/08/2018 6:20 PM) Component Value Ref Range Glucose, POC 123 (H) 70 - 100 MG/DL Specimen Performing Laboratory MAIN LAB [address] [place] [address] * POC GLUCOSE (01/08/2018 12:47 PM) Component Value Ref Range Glucose, POC 214 (H) 70 - 100 MG/DL Specimen Performing Laboratory MAIN LAB [address] [place] [address] * POC GLUCOSE (01/08/2018 7:49 AM) Component Value Ref Range Glucose, POC 113 (H) 70 - 100 MG/DL Specimen Performing Laboratory MAIN LAB [address] [place] [address] * BASIC METABOLIC PANEL (01/08/2018 3:22 AM) [...] Pharmacist for questions. Specimen Performing Laboratory Blood [facility] [address] [place] [address] * CBC AND DIFF (01/08/2018 3:22 AM) [...] - 0.20 K/UL Specimen Performing Laboratory Blood [facility] [address] [place], [place] [id number] * POC GLUCOSE (01/08/2018 3:17 AM) Component Value Ref Range Glucose, POC 108 (H) 70 - 100 MG/DL Specimen Performing Laboratory [place] [id number] * POC GLUCOSE (01/07/2018 8:35 PM) Component Value Ref Range Glucose, POC 149 (H) 70 - 100 MG/DL Specimen Performing Laboratory [place] [id number] * POC GLUCOSE (01/07/2018 6:38 PM) Component Value Ref Range Glucose, POC 85 70 - 100 MG/DL Specimen Performing Laboratory [place] [id number] * POC GLUCOSE (01/07/2018 1:40 PM) Component Value Ref Range Glucose, POC 83 70 - 100 MG/DL Specimen Performing Laboratory [place] [id number] * POC GLUCOSE (01/07/2018 8:05 AM) Component Value Ref Range Glucose, POC 131 (H) 70 - 100 MG/DL Specimen Performing Laboratory [facility] [address] [place], [place] [address] * POC GLUCOSE (01/07/2018 3:04 AM) Component Value Ref Range Glucose, POC 173 (H) 70 - 100 MG/DL [place] [address] * LIVER FUNCTION PANEL (01/07/2018 3:02 AM) [...] Specimen Performing Laboratory Blood MAIN LAB [address] [place] [address] * BASIC METABOLIC PANEL (01/07/2018 3:02 AM) [...] Specimen Performing Laboratory Blood MAIN LAB [address] [place] [address] * CBC AND DIFF (01/07/2018 3:02 AM) [...] Performing Laboratory Blood [facility] [address] [place] [address] * POC GLUCOSE (01/06/2018 9:49 PM) Component Value Ref Range Glucose, POC 204 (H) 70 - 100 MG/DL Specimen Performing Laboratory [facility] [address] [place] [address] * POC GLUCOSE (01/06/2018 5:24 PM) Component Value Ref Range Glucose, POC 223 (H) 70 - 100 MG/DL Specimen Performing Laboratory MAIN LAB [address] [place] [address] * POC GLUCOSE (01/06/2018 1:11 PM) Component Value Ref Range Glucose, POC 99 70 - 100 MG/DL Specimen Performing Laboratory MAIN LAB [address] [place] [address] * CT ABD/PELV WO CONTRAST (01/06/2018 11:43 [...] MG/DL Specimen Performing Laboratory MAIN LAB [address] [place] [address] * POC GLUCOSE (01/06/2018 2:58 AM) Component Value Ref Range Glucose, POC 194 (H) 70 - 100 MG/DL Specimen Performing Laboratory MAIN LAB [address] [place] [address] * BASIC METABOLIC PANEL (01/06/2018 2:52 AM) [...] Specimen Performing Laboratory Blood MAIN LAB [address] [place] [address] * CBC AND DIFF (01/06/2018 2:52 AM) [...] - 0.20 K/UL Specimen Performing Laboratory Blood [facility] [address] [place], [place] [id number] * TRIGLYCERIDE (01/06/2018 2:52 AM) Component Value Ref Range Triglycerides 243 (H) <150 MG/DL Specimen Performing Laboratory Blood [facility] [address] [place], [place] [address] * POC GLUCOSE (01/05/2018 9:38 PM) Component Value Ref Range Glucose, POC 276 (H) 70 - 100 MG/DL Specimen Performing Laboratory [facility] [address] [place], [place] [id number] * POC GLUCOSE (01/05/2018 5:33 PM) Component Value Ref Range Glucose, POC 248 (H) 70 - 100 MG/DL Specimen Performing Laboratory [facility] [address] [place], [place] [id number] * POC GLUCOSE (01/05/2018 12:22 PM) Component Value Ref Range Glucose, POC 194 (H) 70 - 100 MG/DL Specimen Performing Laboratory [facility] [address] [place], [place] [id number] * POC GLUCOSE (01/05/2018 7:52 AM) Component Value Ref Range Glucose, POC 265 (H) 70 - 100 MG/DL Specimen Performing Laboratory [facility] [address] [place] [address] * BASIC METABOLIC PANEL (01/05/2018 3:04 AM) [...] questions. Specimen Performing Laboratory Blood MAIN LAB [address] [place] [address] * CBC AND DIFF (01/05/2018 3:04 AM) [...] - 0.20 K/UL Specimen Performing Laboratory Blood [facility] [address] [place] [address] 54528 * POC GLUCOSE (01/05/2018 2:44 AM) Component Value Ref Range Glucose, POC 279 (H) 70 - 100 MG/DL Specimen Performing Laboratory [facility] [address] [place] [address] 57008 * POC GLUCOSE (01/04/2018 8:58 PM) Component Value Ref Range Glucose, POC 325 (H) 70 - 100 MG/DL Specimen Performing Laboratory MAIN LAB [address] [place] [address] 57300 * POC GLUCOSE (01/04/2018 3:22 PM) Component Value Ref Range Glucose, POC 278 (H) 70 - 100 MG/DL Specimen Performing Laboratory MAIN LAB [address] [place] [address] 31425 * ALBUMIN (01/04/2018 11:55 AM) Component Value Ref Range Albumin 2.2 (L) 3.5 - 5.0 G/DL Specimen Performing Laboratory Blood MAIN LAB [address] [place] [address] * PREALBUMIN (01/04/2018 11:55 AM) Component Value Ref Range Prealbumin 18.0 17 - 34 MG/DL Specimen Performing Laboratory Blood MAIN LAB [address] [place] [address] * POC GLUCOSE (01/04/2018 7:50 AM) Component Value Ref Range Glucose, POC 233 (H) 70 - 100 MG/DL Specimen Performing Laboratory MAIN LAB [address] [place] [address] * BASIC METABOLIC PANEL (01/04/2018 2:45 AM) [...] Specimen Performing Laboratory Blood MAIN LAB [address] [place] [address] * CBC (01/04/2018 2:45 AM) Component Value [...] - 11 FL Specimen Performing Laboratory Blood [facility] [address] [place] [address] 59060 * POC GLUCOSE (01/04/2018 2:39 AM) Component Value Ref Range Glucose, POC 208 (H) 70 - 100 MG/DL Specimen Performing Laboratory [facility] [address] [place] [address] 41052 * POC GLUCOSE (01/03/2018 8:21 PM) Component Value Ref Range Glucose, POC 255 (H) 70 - 100 MG/DL Specimen Performing Laboratory [facility] [address] [place] [address] 52156 * POC GLUCOSE (01/03/2018 4:53 PM) Component Value Ref Range Glucose, POC 221 (H) 70 - 100 MG/DL Specimen Performing Laboratory [facility] [address] [place] [address] 98777 * POC GLUCOSE (01/03/2018 2:44 PM) Component Value Ref Range Glucose, POC 168 (H) 70 - 100 MG/DL Specimen Performing Laboratory [facility] [address] [place] [address] 29360 * POC GLUCOSE (01/03/2018 7:51 AM) Component Value Ref Range Glucose, POC 119 (H) 70 - 100 MG/DL Specimen Performing Laboratory [facility] [address] [place] [address] 45837 * TRIGLYCERIDE (01/03/2018 5:10 AM) Component Value Ref Range Triglycerides 263 (H) <150 MG/DL Specimen Performing Laboratory Blood [facility] [address] [place], [place] [id number] * BASIC METABOLIC PANEL (01/03/2018 5:10 AM) [...] questions. Specimen Performing Laboratory Blood MAIN LAB [address] [place] [address] 00[address] * CBC (01/03/2018 5:10 AM) Component Value [...] - 11 FL Specimen Performing Laboratory Blood [facility] [address] [place] [address] 74238 * MAGNESIUM (01/03/2018 5:10 AM) Component Value Ref Range Magnesium 1.8 1.6 - 2.6 mg/dL Specimen Performing Laboratory Blood [facility] [address] [place] [address] 68299 * PHOSPHORUS (01/03/2018 5:10 AM) Component Value Ref Range Phosphorus 2.2 2.0 - 4.0 MG/DL Specimen Performing Laboratory Blood [facility] [address] [place] [address] 25802 * POC GLUCOSE (01/03/2018 2:00 AM) Component Value Ref Range Glucose, POC 236 (H) 70 - 100 MG/DL Specimen Performing Laboratory [facility] [address] [place] [address] 97031 * POC GLUCOSE (01/02/2018 10:44 PM) Component Value Ref Range Glucose, POC 302 (H) 70 - 100 MG/DL Specimen Performing Laboratory [facility] [address] [place] [address] 83465 * POC GLUCOSE (01/02/2018 8:28 PM) Component Value Ref Range Glucose, POC 317 (H) 70 - 100 MG/DL Specimen Performing Laboratory [facility] [address] [place] [address] 39550 * ECG-SCAN (01/02/2018 7:45 PM) Narrative Ordered by an unspecified provider. * POC GLUCOSE (01/02/2018 5:35 PM) Component Value Ref Range Glucose, POC 242 (H) 70 - 100 MG/DL Specimen Performing Laboratory MAIN LAB [address] [place] [address] * POC GLUCOSE (01/02/2018 12:30 PM) Component Value Ref Range Glucose, POC 315 (H) 70 - 100 MG/DL Specimen Performing Laboratory MAIN LAB [address] [place] [address] * THYROID STIMULATING HORMONE-TSH (01/02/2018 9:45 AM) Component Value Ref Range TSH 12.590 (H) 0.35 - 5.00 MCU/ML Specimen Performing Laboratory Blood MAIN LAB [address] [place] [address] * CREATININE-URINE RANDOM (01/02/2018 9:45 AM) Component Value Ref Range Creatinine, Random 20 MG/DL Specimen Performing Laboratory Urine MAIN LAB [address] [place] [address] * SODIUM-URINE RANDOM (01/02/2018 9:45 AM) Component Value Ref Range Sodium, Random 15 MMOL/L Specimen Performing Laboratory Urine [facility] [address] [place] [address] * POC GLUCOSE (01/02/2018 7:49 AM) Component Value Ref Range Glucose, POC 280 (H) 70 - 100 MG/DL Specimen Performing Laboratory [facility] [address] [place] [address] * BASIC METABOLIC PANEL (01/02/2018 3:25 AM) [...] Pharmacist for questions. Specimen Performing Laboratory Blood [facility] [address] [place] [address] 01670 * CBC (01/02/2018 3:25 AM) Component Value [...] - 11 FL Specimen Performing Laboratory Blood [facility] [address] [place] [address] 56432 * MAGNESIUM (01/02/2018 3:25 AM) Component Value Ref Range Magnesium 1.9 1.6 - 2.6 mg/dL Specimen Performing Laboratory Blood [facility] [address] [place] [address] 20557 * PHOSPHORUS (01/02/2018 3:25 AM) Component Value Ref Range Phosphorus 1.7 (L) 2.0 - 4.0 MG/DL Specimen Performing Laboratory Blood [facility] [address] [place] [address] 19491 * POC GLUCOSE (01/02/2018 2:11 AM) Component Value Ref Range Glucose, POC 288 (H) 70 - 100 MG/DL Specimen Performing Laboratory [facility] [address] [place] [address] 23204 * POC GLUCOSE (01/01/2018 9:15 PM) Component Value Ref Range Glucose, POC 289 (H) 70 - 100 MG/DL Specimen Performing Laboratory [facility] [address] [place] [address] 27295 * POC GLUCOSE (01/01/2018 5:48 PM) Component Value Ref Range Glucose, POC 284 (H) 70 - 100 MG/DL Specimen Performing Laboratory [facility] [address] [place] [address] 63687 * POC GLUCOSE (01/01/2018 4:12 PM) Component Value Ref Range Glucose, POC 354 (H) 70 - 100 MG/DL Specimen Performing Laboratory MAIN LAB [address] [place] [address] * POC GLUCOSE (01/01/2018 1:36 PM) Component Value Ref Range Glucose, POC 386 (H) 70 - 100 MG/DL Specimen Performing Laboratory MAIN LAB [address] [place] [address] 28425 * POC GLUCOSE (01/01/2018 8:54 AM) Component Value Ref Range Glucose, POC 363 (H) 70 - 100 MG/DL Specimen Performing Laboratory MAIN LAB [address] [place] [address] 18694 * BASIC METABOLIC PANEL (01/01/2018 5:15 AM) [...] questions. Specimen Performing Laboratory Blood MAIN LAB [address] [place] [address] 7[address] * CBC (01/01/2018 5:15 AM) Component Value [...] Specimen Performing Laboratory Blood MAIN LAB [address] [place] [address] * MAGNESIUM (01/01/2018 5:15 AM) Component Value Ref Range Magnesium 2.0 1.6 - 2.6 mg/dL Specimen Performing Laboratory Blood [facility] [address] [place] [address] * PHOSPHORUS (01/01/2018 5:15 AM) Component Value Ref Range Phosphorus 2.9 2.0 - 4.0 MG/DL Specimen Performing Laboratory Blood [facility] [address] [place] [address] * POC GLUCOSE (01/01/2018 2:17 AM) Component Value Ref Range Glucose, POC 330 (H) 70 - 100 MG/DL Specimen Performing Laboratory [facility] [address] [place] [address] * TRANSFUSE RBC'S NON-BLEEDING PT (01/01/2018 2:11 AM) Specimen Performing Laboratory Blood * TRANSFUSE RBC'S NON-BLEEDING PT (01/01/2018 2:11 AM) Specimen Performing Laboratory Blood * POC GLUCOSE (12/31/2017 11:44 PM) Component Value Ref Range Glucose, POC 326 (H) 70 - 100 MG/DL Specimen Performing Laboratory [facility] [address] [place] [address] * POC GLUCOSE (12/31/2017 8:58 PM) Component Value Ref Range Glucose, POC 283 (H) 70 - 100 MG/DL Specimen Performing Laboratory [facility] [address] [place] [address] * TRANSFUSE RBC'S NON-BLEEDING PT (12/31/2017 6:22 PM) Specimen Performing Laboratory Blood * TRANSFUSE RBC'S NON-BLEEDING PT (12/31/2017 6:22 PM) Specimen Performing Laboratory Blood * POC GLUCOSE (12/31/2017 5:32 PM) Component Value Ref Range Glucose, POC 274 (H) 70 - 100 MG/DL Specimen Performing Laboratory MAIN LAB [address] [place] [address] * TROPONIN-I (12/31/2017 4:57 PM) Component Value Ref Range Troponin-I 0.01 0.0 - 0.05 NG/ML Specimen Performing Laboratory Blood MAIN LAB [address] [place] [address] * POC GLUCOSE (12/31/2017 1:59 PM) Component Value Ref Range Glucose, POC 299 (H) 70 - 100 MG/DL Specimen Performing Laboratory MAIN LAB [address] [place] [address] * TRANSFUSE RBC'S BLEEDING PT OR EXCHANGE TRANSFUSION (12/31/2017 1:15 PM) Specimen Performing Laboratory Blood * TRANSFUSE RBC'S BLEEDING PT OR EXCHANGE TRANSFUSION (12/31/2017 1:15 PM) Specimen Performing Laboratory Blood * POC GLUCOSE (12/31/2017 11:56 AM) Component Value Ref Range Glucose, POC 268 (H) 70 - 100 MG/DL Specimen Performing Laboratory MAIN LAB [address] [place] [id number] * BASIC METABOLIC PANEL (12/31/2017 10:10 AM) [...] Specimen Performing Laboratory Blood MAIN LAB [address] [place] [address] * CBC (12/31/2017 10:10 AM) Component Value [...] FL Specimen Performing Laboratory Blood MAIN LAB [address] [place] [address] * POC GLUCOSE (12/31/2017 8:49 AM) Component Value Ref Range Glucose, POC 351 (H) 70 - 100 MG/DL Specimen Performing Laboratory MAIN LAB [address] [place] [address] 50189 * POC GLUCOSE (12/31/2017 7:53 AM) Component Value Ref Range Glucose, POC 297 (H) 70 - 100 MG/DL Specimen Performing Laboratory MAIN LAB [address] [place] [address] * BASIC METABOLIC PANEL (12/31/2017 3:30 AM) [...] for questions. Specimen Performing Laboratory MAIN LAB [address] [place] [address] 93120 * MAGNESIUM (12/31/2017 3:30 AM) Component Value Ref Range Magnesium 2.0 1.6 - 2.6 mg/dL Specimen Performing Laboratory Blood MAIN LAB [address] [place] [address] 77053 * PHOSPHORUS (12/31/2017 3:30 AM) Component Value Ref Range Phosphorus 4.1 (H) 2.0 - 4.0 MG/DL Specimen Performing Laboratory Blood [facility] MAIN LAB [address] [place] [address] * POC GLUCOSE (12/31/2017 3:17 AM) Component Value Ref Range Glucose, POC 253 (H) 70 - 100 MG/DL Specimen Performing Laboratory [facility] [address] [place] [address] * POC GLUCOSE (12/31/2017 1:37 AM) Component Value Ref Range Glucose, POC 249 (H) 70 - 100 MG/DL Specimen Performing Laboratory [facility] [address] [place], [place] [id number] * POC GLUCOSE (12/30/2017 9:57 PM) Component Value Ref Range Glucose, POC 211 (H) 70 - 100 MG/DL Specimen Performing Laboratory [facility] [address] [place] [address] * POC GLUCOSE (12/30/2017 5:57 PM) Component Value Ref Range Glucose, POC 207 (H) 70 - 100 MG/DL Specimen Performing Laboratory [facility] [address] [place] [address] * POC GLUCOSE (12/30/2017 12:35 PM) Component Value Ref Range Glucose, POC 173 (H) 70 - 100 MG/DL Specimen Performing Laboratory [facility] [address] [place] [address] * SURGICAL PATHOLOGY (12/30/2017 11:56 AM) Component Value Ref Range PATHOLOGY REPORT [facility] [email or web address] Department of Pathology and Laboratory Medicine [address] [place] [address] Surgical Pathology Office:[phone]:[phone] SURGICAL PATHOLOGY REPORT NAME: BEATA KAISER SURG PATH #: [id number] MR #: [id number] SPECIMEN CLASS: [facility] BILLING #: [id number] ALT ID #:LOCATION: 43 DATE OF PROCEDURE: [...] material indicated in this report. +++ +++ [facility]/12/30/2017 ################################################## ###################### Material Received: A: staple line History: 52-year-old female with a history of pelvic mass. Gross Description: A. Received in formalin, labeled patient's name and "staple line" and regular, unoriented portion of soft tissue containing metallic ceci measuring 6.4 cm in length. The ceci are removed and the specimen is entirely submitted in cassettes [id number].([facility]) [facility]/12/30/2017 Specimen Performing Laboratory LAB RESULTS * POC GLUCOSE (12/30/2017 9:45 AM) Component Value Ref Range Glucose, POC 184 (H) 70 - 100 MG/DL Specimen Performing Laboratory MAIN LAB [address] [place] [address] * TYPE & CROSSMATCH (12/30/2017 8:50 AM) Component Value Ref Range Units Ordered 4 Crossmatch Expires 01/02/2018 Record Check FOUND ABO/RH(D) A POS Antibody Screen NEG Electronic Crossmatch YES Unit Number [id number] Blood Component Type RBC,ADSOL,LEUKO REDUCED Unit Division 0 Status OF Unit REL FROM ALLOC Transfusion Status OK TO TRANSFUSE Crossmatch Result COMPATIBLE,ELECTRONIC Unit Number [id number] Blood Component Type RBC,ADSOL,LEUKO REDUCED Unit Division 0 Status OF Unit REL FROM ALLOC Transfusion Status OK TO TRANSFUSE Crossmatch Result COMPATIBLE,ELECTRONIC Unit Number [id number] Blood Component Type RBC,ADSOL,LEUKO REDUCED Unit Division 0 Status OF Unit TRANSFUSED Transfusion Status OK TO TRANSFUSE Crossmatch Result COMPATIBLE,ELECTRONIC Unit Number [id number] Blood Component Type RBC,ADSOL,LEUKO REDUCED,2ND CONT. Unit Division 0 Status OF Unit TRANSFUSED Transfusion Status OK TO TRANSFUSE Crossmatch Result COMPATIBLE,ELECTRONIC Specimen Performing Laboratory Blood MAIN LAB [address] [place], [place] [id number] * CBC AND DIFF (12/30/2017 8:35 AM) [...] K/UL Specimen Performing Laboratory Blood MAIN LAB [address] [place] [address] 0[address] * TRIGLYCERIDE (12/30/2017 4:58 AM) Component Value Ref Range Triglycerides 198 (H) <150 MG/DL Specimen Performing Laboratory Blood MAIN LAB [address] [place], [place] [phone] * MAGNESIUM (12/30/2017 4:58 AM) Component Value Ref Range Magnesium 2.0 1.6 - 2.6 mg/dL Specimen Performing Laboratory Blood MAIN LAB [address] [place] [address] * PHOSPHORUS (12/30/2017 4:58 AM) Component Value Ref Range Phosphorus 4.1 (H) 2.0 - 4.0 MG/DL Specimen Performing Laboratory Blood MAIN LAB [address] [place] [address] * COMPREHENSIVE METABOLIC PANEL (12/30/2017 4:58 AM) [...] Specimen Performing Laboratory Blood MAIN LAB [address] [place] [address] * POC GLUCOSE (12/30/2017 3:57 AM) Component Value Ref Range Glucose, POC 160 (H) 70 - 100 MG/DL Specimen Performing Laboratory MAIN LAB [address] [place] [address] * POC GLUCOSE (12/29/2017 9:08 PM) Component Value Ref Range Glucose, POC 267 (H) 70 - 100 MG/DL Specimen Performing Laboratory MAIN LAB [address] [place] [address] * POC GLUCOSE (12/29/2017 6:40 PM) Component Value Ref Range Glucose, POC 373 (H) 70 - 100 MG/DL Specimen Performing Laboratory MAIN LAB [address] [place], [place] [phone] * POC GLUCOSE (12/29/2017 5:41 PM) Component Value Ref Range Glucose, POC 335 (H) 70 - 100 MG/DL Specimen Performing Laboratory MAIN LAB [address] [place], [place] [phone] * POC GLUCOSE (12/29/2017 11:56 AM) Component Value Ref Range Glucose, POC 281 (H) 70 - 100 MG/DL Specimen Performing Laboratory MAIN LAB [address] [place], [place] [id number] * POC GLUCOSE (12/29/2017 8:18 AM) Component Value Ref Range Glucose, POC 233 (H) 70 - 100 MG/DL Specimen Performing Laboratory [facility] [address] [place] [address] * TYPE & SCREEN (NOT CROSSMATCH ELIGIBLE) (12/29/2017 4:51 AM) Component Value Ref Range ABO/RH(D) A POS Antibody Screen NEG Blood Component Type RED CELL GROUP Specimen Performing Laboratory Blood, venous - Blood [facility] [address] [place] [address] * BASIC METABOLIC PANEL (12/29/2017 4:51 AM) [...] Pharmacist for questions. Specimen Performing Laboratory Blood [facility] [address] [place] [address] * CBC AND DIFF (12/29/2017 4:51 AM) [...] 7.0 K/UL Manual Specimen Performing Laboratory Blood [facility] [address] [place] [address] 9[address] * POC GLUCOSE (12/29/2017 3:43 AM) Component Value Ref Range Glucose, POC 259 (H) 70 - 100 MG/DL Specimen Performing Laboratory [facility] [address] [place] [address] 16683 * POC GLUCOSE (12/28/2017 8:23 PM) Component Value Ref Range Glucose, POC 280 (H) 70 - 100 MG/DL Specimen Performing Laboratory [facility] [address] [place] [address] 71637 * POC GLUCOSE (12/28/2017 5:44 PM) Component Value Ref Range Glucose, POC 363 (H) 70 - 100 MG/DL Specimen Performing Laboratory [facility] [address] [place] [address] 88567 * OSMOLALITY-URINE RANDOM (12/28/2017 5:18 PM) Component Value Ref Range Osmolality-Urine 366 50 - 1,400 MOS/KG Specimen Performing Laboratory Urine [facility] [address] [place] [address] 20511 * SODIUM-URINE RANDOM (12/28/2017 5:18 PM) Component Value Ref Range Sodium, Random 28 MMOL/L Specimen Performing Laboratory Urine [facility] [address] [place] [address] 17022 * CULTURE-URINE W/SENSITIVITY (12/28/2017 5:18 PM) Component Value Ref Range Battery Name URINE CULTURE Specimen Description URINE,INDWELLING CATH Special Requests NONE Culture NO GROWTH Report Status FINAL 12/29/2017 Specimen Performing Laboratory Urine [place] [address] * URINALYSIS, MICROSCOPIC (12/28/2017 5:18 PM) Component Value Ref Range WBCs,UA 10-20 0 - 2 /HPF RBCs,UA 10-20 0 - 3 /HPF MucousUA TRACE Bacteria,UA FEW (A) NEG-NEG Squamous Epithelial Cells 0-2 0 - 5 Budding Yeast FEW Specimen Performing Laboratory Urine [address] [address] * URINALYSIS DIPSTICK (12/28/2017 5:18 PM) Component Value Ref Range Color,UA YELLOW Turbidity,UA CLEAR CLEAR-CLEAR Specific [place]-Urine 1.015 1.003 - 1.035 pH,UA 5.0 5.0 - 8.0 Protein,UA NEG NEG-NEG Glucose,UA 3+ (A) NEG-NEG Ketones,UA NEG NEG-NEG Bilirubin,UA NEG NEG-NEG Blood,UA 1+ (A) NEG-NEG Urobilinogen,UA NORMAL NORM-NORMAL Nitrite,UA NEG NEG-NEG Leukocytes,UA 2+ (A) NEG-NEG Urine Ascorbic Acid, UA NEG NEG-NEG Specimen [place] [address] * POC GLUCOSE (12/28/2017 1:50 PM) Component Value Ref Range Glucose, POC 281 (H) 70 - 100 MG/DL Specimen Performing Laboratory [facility] [address] [place] [address]956 * POC GLUCOSE (12/28/2017 12:01 PM) Component Value Ref Range Glucose, POC 343 (H) 70 - 100 MG/DL Specimen Performing Laboratory [facility] [address] [place] [address] * PATHOLOGY INTEROPERATIVE REPORT SCAN (12/28/2017 9:36 AM) Narrative Ordered by an unspecified provider. * PATHOLOGY INTEROPERATIVE REPORT SCAN (12/28/2017 9:36 AM) Narrative Ordered by an unspecified provider. * POC GLUCOSE (12/28/2017 7:54 AM) Component Value Ref Range Glucose, POC 187 (H) 70 - 100 MG/DL Specimen Performing Laboratory MAIN LAB [address] [place] [address] * ABDOMEN AP ONLY (12/28/2017 5:27 AM) [...] <7%. Specimen Performing Laboratory MAIN LAB [address] [place] [address] * OSMOLALITY (12/28/2017 4:00 AM) Component Value Ref Range Osmolality 283 280 - 307 MOSMOL/KG Specimen Performing Laboratory MAIN LAB [address] [place] [address] * BASIC METABOLIC PANEL (12/28/2017 4:00 AM) [...] Specimen Performing Laboratory Blood MAIN LAB [address] [place] [address] * CBC AND DIFF (12/28/2017 4:00 AM) [...] K/UL Specimen Performing Laboratory Blood MAIN LAB [address] [place] [address] * POC GLUCOSE (12/28/2017 3:27 AM) Component Value Ref Range Glucose, POC 168 (H) 70 - 100 MG/DL Specimen Performing Laboratory MAIN LAB [address] [place] [address] 11114 * POC GLUCOSE (12/28/2017 3:14 AM) Component Value Ref Range Glucose, POC 167 (H) 70 - 100 MG/DL Specimen Performing Laboratory MAIN LAB [address] [place] [address] 19396 * POC GLUCOSE (12/27/2017 9:28 PM) Component Value Ref Range Glucose, POC 234 (H) 70 - 100 MG/DL Specimen Performing Laboratory MAIN LAB [address] [place] [address] 89871 * ABDOMEN AP ONLY (12/27/2017 7:52 PM) [...] the mid abdomen is included in the [id number]. Surgical defect in the left abdominal wall [...] the mid abdomen is included in the [id number]. Surgical defect in the left abdominal wall [...] MG/DL Specimen Performing Laboratory MAIN LAB [address] [place] [address] * POC GLUCOSE (12/27/2017 11:52 AM) Component Value Ref Range Glucose, POC 143 (H) 70 - 100 MG/DL Specimen Performing Laboratory MAIN LAB [address] [place], [place] [id number] * POC GLUCOSE (12/27/2017 7:39 AM) Component Value Ref Range Glucose, POC 193 (H) 70 - 100 MG/DL Specimen Performing Laboratory MAIN LAB [address] [place] [address] * VANCOMYCIN TROUGH (12/27/2017 5:33 AM) Component Value Ref Range Vancomycin Trough 23.2 (H) 10.0 - 20.0 MCG/ML Specimen Performing Laboratory Blood, venous - Blood MAIN LAB [address] [place] [address] * BASIC METABOLIC PANEL (12/27/2017 4:31 AM) [...] questions. Specimen Performing Laboratory Blood MAIN LAB [address] [place] [address] 5[address] * CBC AND DIFF (12/27/2017 4:31 AM) [...] K/UL Specimen Performing Laboratory Blood MAIN LAB [address] [place] [address] 62594 * POC GLUCOSE (12/27/2017 2:35 AM) Component Value Ref Range Glucose, POC 176 (H) 70 - 100 MG/DL Specimen Performing Laboratory MAIN LAB [address] [place] [address] 88440 * POC GLUCOSE (12/26/2017 9:25 PM) Component Value Ref Range Glucose, POC 304 (H) 70 - 100 MG/DL Specimen Performing Laboratory MAIN LAB [address] [place] [address] 39[address] * POC GLUCOSE (12/26/2017 5:42 PM) Component Value Ref Range Glucose, POC 215 (H) 70 - 100 MG/DL Specimen Performing Laboratory MAIN LAB [address] [place] [address] 11311 * POC GLUCOSE (12/26/2017 1:20 PM) Component Value Ref Range Glucose, POC 312 (H) 70 - 100 MG/DL Specimen Performing Laboratory MAIN LAB [address] [place] [address]17 * POC GLUCOSE (12/26/2017 8:31 AM) Component Value Ref Range Glucose, POC 219 (H) 70 - 100 MG/DL Specimen Performing Laboratory MAIN LAB [address] [place] [address] 05040 * PHOSPHORUS (12/26/2017 4:01 AM) Component Value Ref Range Phosphorus 2.1 2.0 - 4.0 MG/DL Specimen Performing Laboratory [facility] [address] [place] [address] 7[address]11 * MAGNESIUM (12/26/2017 4:01 AM) Component Value Ref Range Magnesium 2.0 1.6 - 2.6 mg/dL Specimen Performing Laboratory [facility] [address] [place] [address] 18941 * BASIC METABOLIC PANEL (12/26/2017 4:01 AM) [...] Pharmacist for questions. Specimen Performing Laboratory Blood [facility] [address] [place], [place] [id number] * CBC AND DIFF (12/26/2017 4:01 AM) [...] - 0.20 K/UL Specimen Performing Laboratory Blood [facility] [address] [place], [place] [id number] * POC GLUCOSE (12/26/2017 1:28 AM) Component Value Ref Range Glucose, POC 217 (H) 70 - 100 MG/DL Specimen Performing Laboratory [address] [address] * POC GLUCOSE (12/25/2017 8:35 PM) Component Value Ref Range Glucose, POC 367 (H) 70 - 100 MG/DL Specimen Performing Laboratory [address] [address] * POC GLUCOSE (12/25/2017 5:19 PM) Component Value Ref Range Glucose, POC 292 (H) 70 - 100 MG/DL Specimen Performing Laboratory [facility] [address] [place] [address] * POC GLUCOSE (12/25/2017 12:02 PM) Component Value Ref Range Glucose, POC 306 (H) 70 - 100 MG/DL Specimen Performing Laboratory [address] [address] * POC GLUCOSE (12/25/2017 9:01 AM) Component Value Ref Range Glucose, POC 261 (H) 70 - 100 MG/DL Specimen Performing Laboratory [facility] [address] [place] [address] [place] [address] * CT PELVIS WO CONTRAST (12/25/2017 8:47 [...] MCG/ML Specimen Performing Laboratory MAIN LAB [address] [place] [address] * BASIC METABOLIC PANEL (12/25/2017 4:42 AM) [...] questions. Specimen Performing Laboratory Blood MAIN [facility] [address] [place] [address] * CBC AND DIFF (12/25/2017 4:42 AM) [...] K/UL Specimen Performing Laboratory Blood MAIN [facility] [address] [place] [address] * POC GLUCOSE (12/25/2017 3:24 AM) Component Value Ref Range Glucose, POC 200 (H) 70 - 100 MG/DL Specimen Performing Laboratory MAIN LAB [address] [place] [address] * POC GLUCOSE (12/24/2017 8:18 PM) Component Value Ref Range Glucose, POC 263 (H) 70 - 100 MG/DL Specimen Performing Laboratory MAIN LAB [address] [place] [address] * DELIVER & TRANSFUSE RED BLOOD CELLS (INTRAOP ONLY) (12/24/2017 6:16 PM) Specimen Performing Laboratory Blood * POC GLUCOSE (12/24/2017 5:47 PM) Component Value Ref Range Glucose, POC 323 (H) 70 - 100 MG/DL Specimen Performing Laboratory [facility] [address] [place] [address] * POC GLUCOSE (12/24/2017 2:02 PM) Component Value Ref Range Glucose, POC 235 (H) 70 - 100 MG/DL Specimen Performing Laboratory [facility] [address] [place] [address] * CULTURE-BLOOD W/SENSITIVITY (12/24/2017 1:12 PM) Component Value Ref Range Battery Name BLOOD CULTURE Specimen Description BLOOD RIGHT ANTECUBITAL Special Requests NONE Culture NO GROWTH 5 DAYS Report Status FINAL 12/30/2017 Specimen Performing Laboratory Blood MAIN LAB [address] [place] [address] * CHEST SINGLE VIEW (12/24/2017 10:34 AM) [...] Screen NEG Electronic Crossmatch YES Unit Number [id number] Blood Component Type RBC,ADSOL,LEUKO REDUCED Unit Division 0 Status OF Unit TRANSFUSED Transfusion Status OK TO TRANSFUSE Crossmatch Result COMPATIBLE,ELECTRONIC Specimen Performing Laboratory Blood [facility] [address] [place] [address] * POC GLUCOSE (12/24/2017 9:15 AM) Component Value Ref Range Glucose, POC 182 (H) 70 - 100 MG/DL Specimen Performing Laboratory [facility] [address] [place] [address] * CBC (12/24/2017 7:16 AM) Component Value [...] 11 FL Specimen Performing Laboratory MAIN LAB [address] [place] [address] * CBC (12/24/2017 4:34 AM) Component Value [...] 7 - 11 FL Specimen Performing Laboratory [facility] [address] [place] [address] * BASIC METABOLIC PANEL (12/24/2017 4:34 AM) [...] Pharmacist for questions. Specimen Performing Laboratory Blood [facility] [address] [place] [address] * POC GLUCOSE (12/23/2017 9:18 PM) Component Value Ref Range Glucose, POC 133 (H) 70 - 100 MG/DL Specimen Performing Laboratory [facility] [address] [place] [address] * POC GLUCOSE (12/23/2017 6:56 PM) Component Value Ref Range Glucose, POC 169 (H) 70 - 100 MG/DL Specimen Performing Laboratory [facility] [address] [place] [address] * OSMOLALITY-URINE RANDOM (12/23/2017 6:14 PM) Component Value Ref Range Osmolality-Urine 298 50 - 1,400 MOS/KG Specimen Performing Laboratory Urine [facility] [address] [place] [address] * SODIUM-URINE RANDOM (12/23/2017 6:14 PM) Component Value Ref Range Sodium, Random <10 MMOL/L Specimen Performing Laboratory Urine MAIN LAB [address] [place] [address] * LACTIC ACID (BG - RAPID LACTATE) (12/23/2017 1:42 PM) Component Value Ref Range Lactic Acid,BG 1.9 0.5 - 2.0 MMOL/L Specimen Performing Laboratory Blood MAIN LAB [address] [place] [address] * CULTURE-BLOOD W/SENSITIVITY (12/23/2017 1:42 PM) Component Value Ref Range Battery Name BLOOD CULTURE Specimen Description BLOOD LEFT ANTECUBITAL Special Requests NONE Culture NO GROWTH 5 DAYS Report Status FINAL 12/29/2017 Specimen Performing Laboratory Blood MAIN LAB [address] [place] [address] * CULTURE-BLOOD W/SENSITIVITY (12/23/2017 1:05 PM) Component [...] recognized Specimen Performing Laboratory Blood MAIN LAB [address] [place] [address] Organism Antibiotic Method Susceptibility Streptococcus Levofloxacin GRAF [...] 100 MG/DL Specimen Performing Laboratory MAIN LAB [address] [place] [address] * C DIFFICILE BY PCR (12/23/2017 10:14 AM) Component Value Ref Range Battery Name C DIFFICILE PCR Specimen Description FECES Special Requests NONE C. Difficile Toxin B PCR Repeat testing not indicated on specimen negative by PCR within 7 days notified 12.23.17/ Report Status FINAL 12/23/2017 Specimen Performing Laboratory Feces MAIN [facility] [address] [place] [address] * POC GLUCOSE (12/23/2017 9:35 AM) Component Value Ref Range Glucose, POC 165 (H) 70 - 100 MG/DL Specimen Performing Laboratory MAIN LAB [address] [place] [address] * CBC (12/23/2017 7:29 AM) Component Value [...] Specimen Performing Laboratory Blood MAIN LAB [address] [place] [address] * BASIC METABOLIC PANEL (12/23/2017 7:29 AM) [...] Specimen Performing Laboratory Blood MAIN LAB [address] [place] [address] * POC GLUCOSE (12/22/2017 9:17 PM) Component Value Ref Range Glucose, POC 303 (H) 70 - 100 MG/DL Specimen Performing Laboratory MAIN LAB [address] [place] [address] * POC GLUCOSE (12/22/2017 5:50 PM) Component Value Ref Range Glucose, POC 376 (H) 70 - 100 MG/DL Specimen Performing Laboratory MAIN LAB [address] [place] [address] * POC GLUCOSE (12/22/2017 12:39 PM) Component Value Ref Range Glucose, POC 227 (H) 70 - 100 MG/DL Specimen Performing Laboratory MAIN LAB [address] [place] [address] * PREALBUMIN (12/22/2017 11:22 AM) Component Value Ref Range Prealbumin 4.0 (L) 17 - 34 MG/DL Specimen Performing Laboratory Blood MAIN LAB [address] [place] [address] * POC GLUCOSE (12/22/2017 9:41 AM) Component Value Ref Range Glucose, POC 113 (H) 70 - 100 MG/DL Specimen Performing Laboratory MAIN LAB [address] [place] [address] * ECG-SCAN (12/22/2017 8:10 AM) Narrative Ordered [...] G/DL Specimen Performing Laboratory Blood MAIN LAB [address] [place] [address] * ALBUMIN (12/22/2017 4:13 AM) Component Value Ref Range Albumin 2.0 (L) 3.5 - 5.0 G/DL Specimen Performing Laboratory [facility] [address] [place] [address] * CBC (12/22/2017 4:13 AM) Component Value [...] FL Specimen Performing Laboratory Blood MAIN LAB [address] [place] [address] * BASIC METABOLIC PANEL (12/22/2017 4:13 AM) [...] Pharmacist for questions. Specimen Performing Laboratory Blood [facility] [address] [place] [address] * POC GLUCOSE (12/21/2017 8:38 PM) Component Value Ref Range Glucose, POC 208 (H) 70 - 100 MG/DL Specimen Performing Laboratory MAIN LAB [address] [place] [address] * POC GLUCOSE (12/21/2017 5:10 PM) Component Value Ref Range Glucose, POC 219 (H) 70 - 100 MG/DL Specimen Performing Laboratory MAIN LAB [address] [place] [address] * POC GLUCOSE (12/21/2017 2:59 PM) Component Value Ref Range Glucose, POC 213 (H) 70 - 100 MG/DL Specimen Performing Laboratory MAIN LAB [address] [place] [address] * CHEST SINGLE VIEW (12/21/2017 12:34 PM) [...] Performing Laboratory Blood [facility] [address] [place] [address] * BASIC METABOLIC PANEL (12/21/2017 11:33 AM) [...] questions. Specimen Performing Laboratory Blood MAIN LAB [address] [place] [address] * CULTURE-URINE W/SENSITIVITY (12/21/2017 9:00 AM) Component Value Ref Range Battery Name URINE CULTURE Specimen Description URINE Special Requests NONE Culture >100,000 organisms/ml ARACELY SPECIES, NOT ALBICANS Report Status FINAL 12/22/2017 Specimen Performing Laboratory Urine MAIN LAB [address] [place] [address] * URINALYSIS MICROSCOPIC REFLEX TO CULTURE (12/21/2017 [...] PACKED Specimen Performing Laboratory Urine MAIN LAB [address] [place] [address] * URINALYSIS DIPSTICK REFLEX TO CULTURE (12/21/2017 9:00 AM) Component Value Ref Range Color,UA YELLOW Turbidity,UA CLEAR CLEAR-CLEAR Specific [place]-Urine 1.003 1.003 - 1.035 pH,UA 7.0 5.0 - 8.0 Protein,UA NEG NEG-NEG Glucose,UA NEG NEG-NEG Ketones,UA NEG NEG-NEG Bilirubin,UA NEG NEG-NEG Blood,UA 1+ (A) NEG-NEG Urobilinogen,UA NORMAL NORM-NORMAL Nitrite,UA NEG NEG-NEG Leukocytes,UA 1+ (A) NEG-NEG Urine Ascorbic Acid, UA NEG NEG-NEG Specimen Performing Laboratory Urine MAIN LAB [address] [place] [address] * UA REFLEX CULTURE LABEL (12/21/2017 9:00 AM) Component Value Ref Range UA Reflex Culture LAB LABEL Specimen Performing Laboratory Urine MAIN LAB [address] [place] [address] * OSMOLALITY-URINE RANDOM (12/21/2017 9:00 AM) Component Value Ref Range Osmolality-Urine 94 50 - 1,400 MOS/KG Specimen Performing Laboratory Urine [facility] [address] [place] [address] * SODIUM-URINE RANDOM (12/21/2017 9:00 AM) Component Value Ref Range Sodium, Random <10 MMOL/L Specimen Performing Laboratory Urine [facility] [address] [place] [address] * POC GLUCOSE (12/21/2017 8:50 AM) Component Value Ref Range Glucose, POC 136 (H) 70 - 100 MG/DL Specimen Performing Laboratory [facility] [address] [place] [address] * URIC ACID (12/21/2017 4:38 AM) Component Value Ref Range Uric Acid 3.3 2.0 - 7.0 MG/DL Specimen Performing Laboratory [facility] [address] [place] [address] * THYROID STIMULATING HORMONE-TSH (12/21/2017 4:38 AM) Component Value Ref Range TSH 2.150 0.35 - 5.00 MCU/ML Specimen Performing Laboratory [facility] [address] [place], [place] [id number] * OSMOLALITY (12/21/2017 4:38 AM) Component Value Ref Range Osmolality 258 (L) 280 - 307 MOSMOL/KG Specimen Performing Laboratory [place] [id number] * CORTISOL,RANDOM (12/21/2017 4:38 AM) Component Value Ref Range Cortisol, Random 15.5 5.0 - 20.0 MCG/DL Specimen Performing Laboratory [facility] [address] [place], [place] [id number] * CBC (12/21/2017 4:38 AM) Component Value [...] - 11 FL Specimen Performing Laboratory Blood [facility] [address] [place], [place] [id number] * BASIC METABOLIC PANEL (12/21/2017 4:38 AM) [...] questions. Specimen Performing Laboratory Blood MAIN LAB [address] [place], [place] [id number] * POC GLUCOSE (12/21/2017 2:54 AM) Component Value Ref Range Glucose, POC 157 (H) 70 - 100 MG/DL Specimen Performing Laboratory MAIN LAB [address] [place] [address] * POC GLUCOSE (12/20/2017 9:27 PM) Component Value Ref Range Glucose, POC 263 (H) 70 - 100 MG/DL Specimen Performing Laboratory MAIN LAB [address] [place] [address] * POC GLUCOSE (12/20/2017 6:47 PM) Component Value Ref Range Glucose, POC 245 (H) 70 - 100 MG/DL Specimen Performing Laboratory MAIN LAB [address] [place] [address] * C DIFFICILE BY PCR (12/20/2017 1:40 PM) Component Value Ref Range Battery Name C DIFFICILE PCR Specimen Description FECES Special Requests NONE C. Difficile Toxin B PCR NEGATIVE-wait 7 days to repeat test Report Status FINAL 12/20/2017 Specimen Performing Laboratory Feces MAIN LAB [address] [place] [address] * POC GLUCOSE (12/20/2017 11:30 AM) Component Value Ref Range Glucose, POC 208 (H) 70 - 100 MG/DL Specimen Performing Laboratory [facility] [address] [place] [address] * POC GLUCOSE (12/20/2017 8:42 AM) Component Value Ref Range Glucose, POC 133 (H) 70 - 100 MG/DL Specimen Performing Laboratory MAIN LAB [address] [place] [address] * POC GLUCOSE (12/20/2017 3:21 AM) Component Value Ref Range Glucose, POC 151 (H) 70 - 100 MG/DL Specimen Performing Laboratory [facility] [address] [place] [address] * BASIC METABOLIC PANEL (12/20/2017 3:10 AM) [...] Pharmacist for questions. Specimen Performing Laboratory Blood [facility] [address] [place] [address] * CBC (12/20/2017 3:10 AM) Component Value [...] - 11 FL Specimen Performing Laboratory Blood [facility] [address] [place] [address] * POC GLUCOSE (12/19/2017 9:46 PM) Component Value Ref Range Glucose, POC 151 (H) 70 - 100 MG/DL Specimen Performing Laboratory [facility] [address] [place] [address] * POC GLUCOSE (12/19/2017 5:06 PM) Component Value Ref Range Glucose, POC 207 (H) 70 - 100 MG/DL Specimen Performing Laboratory [facility] [address] [place] [address] 24[address] * POC GLUCOSE (12/19/2017 11:56 AM) Component Value Ref Range Glucose, POC 153 (H) 70 - 100 MG/DL Specimen Performing Laboratory [facility] [address] [place] [address] * POC GLUCOSE (12/19/2017 9:07 AM) Component Value Ref Range Glucose, POC 127 (H) 70 - 100 MG/DL Specimen Performing Laboratory [facility] [address] [place] [address] 17[address] * CBC (12/19/2017 3:05 AM) Component Value [...] - 11 FL Specimen Performing Laboratory Blood [facility] [address] [place] [address] * BASIC METABOLIC PANEL (12/19/2017 3:05 AM) [...] Pharmacist for questions. Specimen Performing Laboratory Blood [facility] [address] [place], [place] [id number] * IONIZED CALCIUM (12/19/2017 3:05 AM) Component Value Ref Range Ionized Calcium 1.07 1.0 - 1.3 MMOL/L Specimen Performing Laboratory Blood [facility] [address] [place], [place] [id number] * PHOSPHORUS (12/19/2017 3:05 AM) Component Value Ref Range Phosphorus 3.0 2.0 - 4.0 MG/DL Specimen Performing Laboratory Blood [facility] [address] [place], [place] [id number] * MAGNESIUM (12/19/2017 3:05 AM) Component Value Ref Range Magnesium 1.9 1.6 - 2.6 mg/dL Specimen Performing Laboratory Blood [facility] [address] [place], [place] [id number] * POC GLUCOSE (12/18/2017 9:00 PM) Component Value Ref Range Glucose, POC 97 70 - 100 MG/DL Specimen Performing Laboratory [facility] [address] [place] [address] * POC GLUCOSE (12/18/2017 4:38 PM) Component Value Ref Range Glucose, POC 173 (H) 70 - 100 MG/DL Specimen Performing Laboratory [facility] [address] [place] [address] 51141 * POC GLUCOSE (12/18/2017 12:00 PM) Component Value Ref Range Glucose, POC 129 (H) 70 - 100 MG/DL Specimen Performing Laboratory [facility] [address] [place] [address] 74521 * POC GLUCOSE (12/18/2017 8:45 AM) Component Value Ref Range Glucose, POC 107 (H) 70 - 100 MG/DL Specimen Performing Laboratory [facility] [address] [place] [address] 01326 * POC GLUCOSE (12/18/2017 3:08 AM) Component Value Ref Range Glucose, POC 132 (H) 70 - 100 MG/DL Specimen Performing Laboratory MAIN LAB [address] [place] [address] * CBC (12/18/2017 3:07 AM) Component Value [...] Specimen Performing Laboratory Blood MAIN [facility] [address] [place] [address] * BASIC METABOLIC PANEL (12/18/2017 3:07 AM) [...] Specimen Performing Laboratory Blood MAIN LAB [address] [place] [address] * IONIZED CALCIUM (12/18/2017 3:07 AM) Component Value Ref Range Ionized Calcium 1.12 1.0 - 1.3 MMOL/L Specimen Performing Laboratory Blood MAIN LAB [address] [place] [address] * PHOSPHORUS (12/18/2017 3:07 AM) Component Value Ref Range Phosphorus 2.5 2.0 - 4.0 MG/DL Specimen Performing Laboratory Blood [facility] [address] [place] [address] * MAGNESIUM (12/18/2017 3:07 AM) Component Value Ref Range Magnesium 2.2 1.6 - 2.6 mg/dL Specimen Performing Laboratory Blood [facility] [address] [place] [address] 7[address] * POC GLUCOSE (12/17/2017 8:27 PM) Component Value Ref Range Glucose, POC 154 (H) 70 - 100 MG/DL Specimen Performing Laboratory [facility] [address] [place] [address] 9[address]37 * POC GLUCOSE (12/17/2017 5:31 PM) Component Value Ref Range Glucose, POC 197 (H) 70 - 100 MG/DL Specimen Performing Laboratory [facility] [address] [place] [address] 65905 * CBC (12/17/2017 5:31 PM) Component Value [...] - 11 FL Specimen Performing Laboratory Blood [facility] [address] [place] [address] * POC GLUCOSE (12/17/2017 12:05 PM) Component Value Ref Range Glucose, POC 136 (H) 70 - 100 MG/DL Specimen Performing Laboratory [facility] [address] [place] [address] 06652 * POC GLUCOSE (12/17/2017 8:17 AM) Component Value Ref Range Glucose, POC 123 (H) 70 - 100 MG/DL Specimen Performing Laboratory [facility] [address] [place] [address] 14400 * ABDOMEN AP ONLY (12/17/2017 7:10 AM) [...] Specimen Performing Laboratory [facility] [address] [place] [address] * CBC (12/17/2017 3:04 AM) Component Value [...] FL Specimen Performing Laboratory Blood MAIN LAB [address] [place] [address] * BASIC METABOLIC PANEL (12/17/2017 3:04 AM) [...] questions. Specimen Performing Laboratory Blood MAIN [facility] [address] [place] [address] 88238 * IONIZED CALCIUM (12/17/2017 3:04 AM) Component Value Ref Range Ionized Calcium 1.13 1.0 - 1.3 MMOL/L Specimen Performing Laboratory Blood MAIN [facility] [address] [place] [address] 9[address]80 * PHOSPHORUS (12/17/2017 3:04 AM) Component Value Ref Range Phosphorus 2.0 2.0 - 4.0 MG/DL Specimen Performing Laboratory Blood MAIN [facility] [address] [place] [address] 89221 * MAGNESIUM (12/17/2017 3:04 AM) Component Value Ref Range Magnesium 2.1 1.6 - 2.6 mg/dL Specimen Performing Laboratory Blood MAIN [facility] [address] [place] [address] 8[address]82 * CBC (12/16/2017 10:00 PM) Component Value [...] FL Specimen Performing Laboratory Blood MAIN [facility] [address] [place] [address] 34432 * POC GLUCOSE (12/16/2017 8:26 PM) Component Value Ref Range Glucose, POC 131 (H) 70 - 100 MG/DL Specimen Performing Laboratory MAIN LAB [address] [place] [address] 68570 * POC GLUCOSE (12/16/2017 5:01 PM) Component Value Ref Range Glucose, POC 165 (H) 70 - 100 MG/DL Specimen Performing Laboratory MAIN LAB [address] [place] [address] 40153 * BASIC METABOLIC PANEL (12/16/2017 2:20 PM) [...] Pharmacist for questions. Specimen Performing Laboratory Blood [facility] [address] [place] [address] 19026 * CBC (12/16/2017 2:20 PM) Component Value [...] FL Specimen Performing Laboratory Blood MAIN LAB [address] [place], [place] [id number] * POC GLUCOSE (12/16/2017 12:09 PM) Component Value Ref Range Glucose, POC 181 (H) 70 - 100 MG/DL Specimen Performing Laboratory [facility] [address] [place], [place] [id number] * POC GLUCOSE (12/16/2017 9:39 AM) Component Value Ref Range Glucose, POC 171 (H) 70 - 100 MG/DL Specimen Performing Laboratory [facility] [address] [place] [address] * BLOOD GASES, ARTERIAL (12/16/2017 3:27 AM) Component Value Ref Range pH-Arterial 7.33 (L) 7.35 - 7.45 pCO2-Arterial 41 35 - 45 MMHG pO2-Arterial 84 80 - 100 MMHG Base Deficit-Arterial 4.2 MMOL/L O2 Sat-Arterial 97.0 95 - 99 % Veurhyqaheo-IKE-Mry 20.9 (L) 21 - 28 MMOL/L Specimen Performing Laboratory Blood, arterial - Blood [facility] [address] [place] [address] * POC GLUCOSE (12/16/2017 3:06 AM) Component Value Ref Range Glucose, POC 136 (H) 70 - 100 MG/DL Specimen Performing Laboratory [facility] [address] [place] [address] * CBC (12/16/2017 3:05 AM) Component Value [...] FL Specimen Performing Laboratory Blood MAIN [facility] [address] [place] [address] 19771 * BASIC METABOLIC PANEL (12/16/2017 3:05 AM) [...] questions. Specimen Performing Laboratory Blood MAIN [facility] [address] [place] [address] 49555 * IONIZED CALCIUM (12/16/2017 3:05 AM) Component Value Ref Range Ionized Calcium 1.16 1.0 - 1.3 MMOL/L Specimen Performing Laboratory Blood MAIN LAB [address] [place] [address] 37274 * PHOSPHORUS (12/16/2017 3:05 AM) Component Value Ref Range Phosphorus 3.6 2.0 - 4.0 MG/DL Specimen Performing Laboratory Blood MAIN LAB [address] [place] [address] 54002 * MAGNESIUM (12/16/2017 3:05 AM) Component Value Ref Range Magnesium 1.8 1.6 - 2.6 mg/dL Specimen Performing Laboratory Blood MAIN LAB [address] [place] [address] 85855 * PHOSPHORUS (12/15/2017 10:00 PM) Component Value Ref Range Phosphorus 4.1 (H) 2.0 - 4.0 MG/DL Specimen Performing Laboratory Blood MAIN [facility] [address] [place] [address] 93322 * MAGNESIUM (12/15/2017 10:00 PM) Component Value Ref Range Magnesium 2.0 1.6 - 2.6 mg/dL Specimen Performing Laboratory Blood MAIN LAB [address] [place] [address] * TEG WITH KAOLIN (12/15/2017 10:00 PM) [...] Specimen Performing Laboratory Blood MAIN [facility] [address] [place] [address] * CBC (12/15/2017 10:00 PM) Component Value [...] FL Specimen Performing Laboratory Blood MAIN [facility] [address] [place] [address] 0[address] * IONIZED CALCIUM (12/15/2017 10:00 PM) Component Value Ref Range Ionized Calcium 1.23 1.0 - 1.3 MMOL/L Specimen Performing Laboratory Blood MAIN LAB [address] [place], [place] [id number] * BLOOD GASES, ARTERIAL (12/15/2017 10:00 PM) Component Value Ref Range pH-Arterial 7.31 (L) 7.35 - 7.45 pCO2-Arterial 38 35 - 45 MMHG pO2-Arterial 95 80 - 100 MMHG Base Deficit-Arterial 6.4 MMOL/L O2 Sat-Arterial 97.6 95 - 99 % Xwbjhigbflm-ZHU-Pxr 19.2 (L) 21 - 28 MMOL/L Specimen Performing Laboratory Blood, arterial - Blood [facility] [address] [place], [place] [id number] * POC GLUCOSE (12/15/2017 8:35 PM) Component Value Ref Range Glucose, POC 272 (H) 70 - 100 MG/DL Specimen Performing Laboratory MAIN LAB [address] [place], [place] [id number] * CBC (12/15/2017 7:26 PM) Component Value [...] Performing Laboratory Blood [facility] [address] [place] [address] * TRANSFUSE RBC'S BLEEDING PT OR EXCHANGE TRANSFUSION (12/15/2017 6:54 PM) Specimen Performing Laboratory Blood * POC GLUCOSE (12/15/2017 5:32 PM) Component Value Ref Range Glucose, POC 255 (H) 70 - 100 MG/DL Specimen Performing Laboratory MAIN LAB [address] [place] [address] * TEG WITH KAOLIN (12/15/2017 3:25 PM) [...] Specimen Performing Laboratory Blood MAIN [facility] [address] [place] [address] * CBC (12/15/2017 1:45 PM) Component Value [...] FL Specimen Performing Laboratory Blood MAIN LAB [address] [place] [address] * POC GLUCOSE (12/15/2017 8:54 AM) Component Value Ref Range Glucose, POC 177 (H) 70 - 100 MG/DL Specimen Performing Laboratory [facility] [address] [place] [address] * BLOOD GASES, ARTERIAL (12/15/2017 8:45 AM) Component Value Ref Range pH-Arterial 7.36 7.35 - 7.45 pCO2-Arterial 22 (L) 35 - 45 MMHG pO2-Arterial 136 (H) 80 - 100 MMHG Base Deficit-Arterial 12.5 MMOL/L O2 Sat-Arterial 99.4 (H) 95 - 99 % Waxjtmzdakq-AAY-Zjd 14.5 (L) 21 - 28 MMOL/L Specimen Performing Laboratory Blood, arterial - Blood [facility] [address] [place] [address] * POC GLUCOSE (12/15/2017 6:45 AM) Component Value Ref Range Glucose, POC 206 (H) 70 - 100 MG/DL Specimen Performing Laboratory MAIN LAB [address] [place] [address] * CBC (12/15/2017 5:40 AM) Component Value [...] [place] Specimen Performing Laboratory Blood MAIN LAB [address] [place] [address] * BASIC METABOLIC PANEL (12/15/2017 4:40 AM) [...] questions. Specimen Performing Laboratory Blood MAIN LAB [address] [place] [address] 46966 * IONIZED CALCIUM (12/15/2017 4:40 AM) Component Value Ref Range Ionized Calcium 1.11 1.0 - 1.3 MMOL/L Specimen Performing Laboratory Blood MAIN LAB [address] [place] [address] 48[address] * PHOSPHORUS (12/15/2017 4:40 AM) Component Value Ref Range Phosphorus 3.2 2.0 - 4.0 MG/DL Specimen Performing Laboratory Blood MAIN LAB [address] [place] [address] 8[address]61 * MAGNESIUM (12/15/2017 4:40 AM) Component Value Ref Range Magnesium 2.0 1.6 - 2.6 mg/dL Specimen Performing Laboratory Blood MAIN LAB [address] [place] [address] 37955 * LACTIC ACID(LACTATE) (12/14/2017 11:20 PM) Component Value Ref Range Lactic Acid 0.8 0.5 - 2.0 MMOL/L Specimen Performing Laboratory Blood MAIN LAB [address] [place] [address] 71364 * BLOOD GASES, ARTERIAL (12/14/2017 11:20 PM) Component Value Ref Range pH-Arterial 7.34 (L) 7.35 - 7.45 pCO2-Arterial 34 (L) 35 - 45 MMHG pO2-Arterial 77 (L) 80 - 100 MMHG Base Deficit-Arterial 7.1 MMOL/L O2 Sat-Arterial 95.3 95 - 99 % Yiccryqmklf-VZQ-Jag 18.6 (L) 21 - 28 MMOL/L Specimen Performing Laboratory Blood, arterial - Blood [facility]IN [facility] [address] [place], [place] [id number] * PHOSPHORUS (12/14/2017 11:20 PM) Component Value Ref Range Phosphorus 3.5 2.0 - 4.0 MG/DL Specimen Performing Laboratory Blood MAIN LAB [address] [place] [address] 82[address] * MAGNESIUM (12/14/2017 11:20 PM) Component Value Ref Range Magnesium 2.1 1.6 - 2.6 mg/dL Specimen Performing Laboratory Blood MAIN LAB [address] [place] [address] 27058 * BASIC METABOLIC PANEL (12/14/2017 11:20 PM) [...] questions. Specimen Performing Laboratory Blood MAIN LAB [address] [place] [address] 59[address] * CBC (12/14/2017 11:20 PM) Component Value [...] [place] Specimen Performing Laboratory Blood MAIN LAB [address] [place], [place] [id number] * POC GLUCOSE (12/14/2017 9:22 PM) Component Value Ref Range Glucose, POC 199 (H) 70 - 100 MG/DL Specimen Performing Laboratory MAIN LAB [address] [place], [place] [id number] * CBC AND DIFF (12/14/2017 6:42 PM) [...] K/UL Specimen Performing Laboratory Blood MAIN LAB [address] [place], [place] [id number] * PHOSPHORUS (12/14/2017 6:42 PM) Component Value Ref Range Phosphorus 4.0 2.0 - 4.0 MG/DL Specimen Performing Laboratory Blood MAIN LAB [address] [place], [place] [id number] * MAGNESIUM (12/14/2017 6:42 PM) Component Value Ref Range Magnesium 2.0 1.6 - 2.6 mg/dL Specimen Performing Laboratory Blood [facility] [address] [place] [id number] * BASIC METABOLIC PANEL (12/14/2017 6:42 PM) [...] Specimen Performing Laboratory Blood MAIN LAB [address] [place] [address] * LACTIC ACID(LACTATE) (12/14/2017 6:42 PM) Component Value Ref Range Lactic Acid 1.5 0.5 - 2.0 MMOL/L Specimen Performing Laboratory Blood [facility] [address] [place] [address] * PTT (APTT) (12/14/2017 6:42 PM) Component Value Ref Range APTT 23.7 21.0 - 39.0 SEC Specimen Performing Laboratory Blood [facility]IN [facility] [address] [place] [address] * BLOOD GASES, ARTERIAL (12/14/2017 6:41 PM) Component Value Ref Range pH-Arterial 7.32 (L) 7.35 - 7.45 pCO2-Arterial 33 (L) 35 - 45 MMHG pO2-Arterial 89 80 - 100 MMHG Base Deficit-Arterial 8.2 MMOL/L O2 Sat-Arterial 97.0 95 - 99 % Fcwxetobjyp-EAH-Sjr 17.8 (L) 21 - 28 MMOL/L Specimen Performing Laboratory Blood, arterial - Blood [facility] [address] [place] [address] 24097 * IONIZED CALCIUM (12/14/2017 6:41 PM) Component Value Ref Range Ionized Calcium 1.14 1.0 - 1.3 MMOL/L Specimen Performing Laboratory Blood MAIN LAB [address] [place], [place] [id number] * POTASSIUM, BG (12/14/2017 4:51 PM) Component Value Ref Range Potassium 4.9 3.5 - 5.1 MMOL/L Specimen Performing Laboratory Blood MAIN LAB [address] [place], [place] [id number] * SODIUM,BG (12/14/2017 4:51 PM) Component Value Ref Range Sodium 139 137 - 147 MMOL/L Specimen Performing Laboratory Blood MAIN LAB [address] [place], [place] [id number] * IONIZED CALCIUM,BG (12/14/2017 4:51 PM) Component Value Ref Range Ionized Calcium 1.12 1.0 - 1.3 MMOL/L Specimen Performing Laboratory Blood MAIN LAB [address] [place], [place] [id number] * GLUCOSE,BG (12/14/2017 4:51 PM) Component Value Ref Range Glucose 263 (H) 70 - 100 MG/DL Specimen Performing Laboratory Blood MAIN LAB [address] [place], [place] [id number] * BLOOD GASES, ARTERIAL (12/14/2017 4:51 PM) Component Value Ref Range pH-Arterial 7.32 (L) 7.35 - 7.45 pCO2-Arterial 37 35 - 45 MMHG pO2-Arterial 159 (H) 80 - 100 MMHG Base Deficit-Arterial 6.4 MMOL/L O2 Sat-Arterial 99.4 (H) 95 - 99 % Xratrnaijzp-RBR-Ymg 19.2 (L) 21 - 28 MMOL/L Specimen Performing Laboratory Blood, arterial - Blood MAIN LAB [address] [place], [place] [id number] * HEMOGLOBIN & HEMATOCRIT, BG (12/14/2017 4:51 PM) Component Value Ref Range Hemoglobin BG 12.0 12.0 - 15.0 GM/DL Hematocrit BG 37.1 36 - 45 % Specimen Performing Laboratory Blood MAIN LAB [address] [place], [place] [id number] * DELIVER & TRANSFUSE RED BLOOD CELLS [...] Specimen Performing Laboratory Blood MAIN LAB [address] [place] [address] * SODIUM,BG (12/14/2017 3:45 PM) Component Value Ref Range Sodium 138 137 - 147 MMOL/L Specimen Performing Laboratory Blood MAIN LAB [address] [place] [address] * IONIZED CALCIUM,BG (12/14/2017 3:45 PM) Component Value Ref Range Ionized Calcium 1.12 1.0 - 1.3 MMOL/L Specimen Performing Laboratory Blood MAIN LAB [address] [place] [address] * GLUCOSE,BG (12/14/2017 3:45 PM) Component Value Ref Range Glucose 278 (H) 70 - 100 MG/DL Specimen Performing Laboratory Blood MAIN LAB [address] [place] [address] * BLOOD GASES, ARTERIAL (12/14/2017 3:45 PM) Component Value Ref Range pH-Arterial 7.30 (L) 7.35 - 7.45 pCO2-Arterial 45 35 - 45 MMHG pO2-Arterial 143 (H) 80 - 100 MMHG Base Deficit-Arterial 4.3 MMOL/L O2 Sat-Arterial 99.0 95 - 99 % Rkusynyhejp-QMI-Gaf 20.8 (L) 21 - 28 MMOL/L Specimen Performing Laboratory Blood, arterial - Blood MAIN LAB [address] [place] [address] * HEMOGLOBIN & HEMATOCRIT, BG (12/14/2017 3:45 PM) Component Value Ref Range Hemoglobin BG 9.7 (L) 12.0 - 15.0 GM/DL Hematocrit BG 30.2 (L) 36 - 45 % Specimen Performing Laboratory Blood MAIN LAB [address] [place] [address] * DELIVER & TRANSFUSE RED BLOOD CELLS (INTRAOP ONLY) (12/14/2017 3:31 PM) Specimen Performing Laboratory Blood * LACTIC ACID (BG - RAPID LACTATE) (12/14/2017 2:34 PM) Component Value Ref Range Lactic Acid,BG 0.8 0.5 - 2.0 MMOL/L Specimen Performing Laboratory Blood MAIN LAB [address] [place] [address] 336[address] * POTASSIUM, BG (12/14/2017 2:34 PM) Component Value Ref Range Potassium 4.4 3.5 - 5.1 MMOL/L Specimen Performing Laboratory Blood MAIN LAB [address] [place], [place] [id number] * SODIUM,BG (12/14/2017 2:34 PM) Component Value Ref Range Sodium 137 137 - 147 MMOL/L Specimen Performing Laboratory Blood MAIN LAB [address] [place] [address] 21034 * IONIZED CALCIUM,BG (12/14/2017 2:34 PM) Component Value Ref Range Ionized Calcium 1.12 1.0 - 1.3 MMOL/L Specimen Performing Laboratory Blood MAIN LAB [address] [place] [address] * GLUCOSE,BG (12/14/2017 2:34 PM) Component Value Ref Range Glucose 244 (H) 70 - 100 MG/DL Specimen Performing Laboratory Blood MAIN LAB [address] [place] [address] 35890 * BLOOD GASES, ARTERIAL (12/14/2017 2:34 PM) Component Value Ref Range pH-Arterial 7.34 (L) 7.35 - 7.45 pCO2-Arterial 43 35 - 45 MMHG pO2-Arterial 140 (H) 80 - 100 MMHG Base Deficit-Arterial 2.5 MMOL/L O2 Sat-Arterial 99.1 (H) 95 - 99 % Nuzmbeaiswq-WOY-Bnn 22.4 21 - 28 MMOL/L Specimen Performing Laboratory Blood, arterial - Blood MAIN LAB [address] [place] [address] 76476 * HEMOGLOBIN & HEMATOCRIT, BG (12/14/2017 2:34 PM) Component Value Ref Range Hemoglobin BG 8.5 (L) 12.0 - 15.0 GM/DL Hematocrit BG 26.5 (L) 36 - 45 % Specimen Performing Laboratory Blood MAIN LAB [address] [place], [place] [id number] * LACTIC ACID (BG - RAPID LACTATE) (12/14/2017 1:25 PM) Component Value Ref Range Lactic Acid,BG 1.0 0.5 - 2.0 MMOL/L Specimen Performing Laboratory MAIN LAB [address] [place], [place] [id number] * POTASSIUM, BG (12/14/2017 1:25 PM) Component Value Ref Range Potassium 4.5 3.5 - 5.1 MMOL/L Specimen Performing Laboratory Blood MAIN LAB [address] [place], [place] [id number] * SODIUM,BG (12/14/2017 1:25 PM) Component Value Ref Range Sodium 139 137 - 147 MMOL/L Specimen Performing Laboratory Blood MAIN LAB [address] [place], [place] [id number] * IONIZED CALCIUM,BG (12/14/2017 1:25 PM) Component Value Ref Range Ionized Calcium 1.13 1.0 - 1.3 MMOL/L Specimen Performing Laboratory Blood [facility] [address] [place] [address] * GLUCOSE,BG (12/14/2017 1:25 PM) Component Value Ref Range Glucose 236 (H) 70 - 100 MG/DL Specimen Performing Laboratory Blood MAIN LAB [address] [place] [address] * BLOOD GASES, ARTERIAL (12/14/2017 1:25 PM) Component Value Ref Range pH-Arterial 7.35 7.35 - 7.45 pCO2-Arterial 42 35 - 45 MMHG pO2-Arterial 146 (H) 80 - 100 MMHG Base Deficit-Arterial 2.4 MMOL/L O2 Sat-Arterial 99.2 (H) 95 - 99 % Bijvpiqauwo-PZW-Hlf 22.4 21 - 28 MMOL/L Specimen Performing Laboratory Blood, arterial - Blood MAIN LAB [address] [place], [place] [id number] * HEMOGLOBIN & HEMATOCRIT, BG (12/14/2017 1:25 PM) Component Value Ref Range Hemoglobin BG 9.2 (L) 12.0 - 15.0 GM/DL Hematocrit BG 28.6 (L) 36 - 45 % Specimen Performing Laboratory Blood MAIN LAB [address] [place] [address] * POTASSIUM, BG (12/14/2017 11:44 AM) Component Value Ref Range Potassium 4.6 3.5 - 5.1 MMOL/L Specimen Performing Laboratory Blood MAIN LAB [address] [place], [place] [id number] * SODIUM,BG (12/14/2017 11:44 AM) Component Value Ref Range Sodium 140 137 - 147 MMOL/L Specimen Performing Laboratory Blood MAIN LAB [address] [place] [address] * IONIZED CALCIUM,BG (12/14/2017 11:44 AM) Component Value Ref Range Ionized Calcium 1.17 1.0 - 1.3 MMOL/L Specimen Performing Laboratory Blood MAIN LAB [address] [place] [address] * GLUCOSE,BG (12/14/2017 11:44 AM) Component Value Ref Range Glucose 241 (H) 70 - 100 MG/DL Specimen Performing Laboratory Blood MAIN LAB [address] [place] [address] * BLOOD GASES, ARTERIAL (12/14/2017 11:44 AM) Component Value Ref Range pH-Arterial 7.37 7.35 - 7.45 pCO2-Arterial 43 35 - 45 MMHG pO2-Arterial 127 (H) 80 - 100 MMHG Base Deficit-Arterial 0.7 MMOL/L O2 Sat-Arterial 98.8 95 - 99 % Lqhggawtnnu-FJD-Ydm 23.8 21 - 28 MMOL/L Specimen Performing Laboratory Blood, arterial - Blood MAIN LAB [address] [place] [address] * HEMOGLOBIN & HEMATOCRIT, BG (12/14/2017 11:44 AM) Component Value Ref Range Hemoglobin BG 10.0 (L) 12.0 - 15.0 GM/DL Hematocrit BG 31.0 (L) 36 - 45 % Specimen Performing Laboratory Blood MAIN LAB [address] [place] [address] * SURGICAL PATHOLOGY (12/14/2017 10:23 AM) Component Value Ref Range PATHOLOGY REPORT [email or web address] Department of Pathology and Laboratory Medicine [address] [place] [address] Surgical Pathology Office:[phone]:[phone] SURGICAL PATHOLOGY REPORT NAME: BEATA KAISER SURG PATH #: [id number] MR #: [id number] SPECIMEN CLASS: SR BILLING #: [id number] ALT ID #:LOCATION: [id number] DATE OF PROCEDURE: [...] cm aggregate of gallardo-pink soft tissue fragments. [place] sections of the specimen are submitted in [...] submitted to Biospec[facility] Repository Core Facility: No [facility] sections of the specimen are submitted as follows: H1 [place] section of skin scar and surrounding gallardo purple bruised-appearing skin. H2 [place] proximal skin, soft tissue and muscle margin. H3-H6 [place] sections from the hemorrhagic cavity within the subcutaneous and adipose tissue. H7-H10 Tumor within muscle and soft tissue. H11 Bone margin at pubic symphysis (placed in decalcification solution prior to processing). A52-J67Kyatr within pubis bone adjacent to acetabulum (H12 is placed in decalcification solution prior to processing). H 14-A53Muxat within the ilium (H15 is placed in decalcification solution prior to processing). H16 Tumor two gluteus medius. F39-P70Mdvrdvrnnf real estate representative sections throughout the tumor.(brm) I. Received in formalin labeled with the patient's name and "additional tissue, left hemipelvectomy" is a 5.9 x 4.2 x 1.5 cm aggregate of gallardo-pink soft tissue fragments and bone. These tissue fragments are not oriented. [employer] sections are submitted in cassettes I1 and I2 (I2 is placed in decalcification solution prior to processing). Also in the container is a 9.5 x 7.2 x 3.1 cm red-brown portion of muscle and attached yellow adipose tissue. The specimen is serially sectioned to reveal red-brown unremarkable muscle and yellow unremarkable adipose tissue. [place] [employer] sections from throughout the specimen are submitted [...] #2", biopsy: Microscopic focus suspicious for chondrosarcoma. [id number], vein contents, "vein contents", biopsy: Chondrosarcoma G1FS, [...] questions. Specimen Performing Laboratory Blood MAIN LAB [address] [place] [address] * CBC (12/14/2017 6:12 AM) Component Value [...] [place] Specimen Performing Laboratory Blood MAIN LAB [address] [place] [address] * PTT (APTT) (12/14/2017 6:12 AM) Component Value Ref Range APTT 29.3 21.0 - 39.0 SEC Specimen Performing Laboratory Blood MAIN LAB [address] [place] [address] 611[address] * PTT (APTT) (12/13/2017 8:49 PM) Component Value Ref Range APTT 95.1 (H) 21.0 - 39.0 SEC Specimen Performing Laboratory Blood MAIN LAB [address] [place] [address] 41773 * PTT (APTT) (12/13/2017 11:30 AM) Component Value Ref Range APTT 38.7 21.0 - 39.0 SEC Specimen Performing Laboratory Blood MAIN LAB [address] [place] [address] 48745 * TYPE & CROSSMATCH (12/13/2017 11:17 AM) Component Value Ref Range Units Ordered 8 Crossmatch Expires 12/16/2017 Record Check FOUND ABO/RH(D) A POS Antibody Screen NEG Electronic Crossmatch YES Unit Number [id number] Blood Component Type RBC,ADSOL,LEUKO REDUCED Unit Division 0 Status OF Unit TRANSFUSED Transfusion Status OK TO TRANSFUSE Crossmatch Result COMPATIBLE,ELECTRONIC Unit Number [id number] Blood Component Type RBC,ADSOL,LEUKO REDUCED Unit Division 0 Status OF Unit TRANSFUSED Transfusion Status OK TO TRANSFUSE Crossmatch Result COMPATIBLE,ELECTRONIC Unit Number [id number] Blood Component Type RBC,ADSOL,LEUKO REDUCED Unit Division 0 Status OF Unit TRANSFUSED Transfusion Status OK TO TRANSFUSE Crossmatch Result COMPATIBLE,ELECTRONIC Unit Number [id number] Blood Component Type RBC,ADSOL,LEUKO REDUCED Unit Division 0 Status OF Unit REL FROM ALLOC Transfusion Status OK TO TRANSFUSE Crossmatch Result COMPATIBLE,ELECTRONIC Unit Number [id number] Blood Component Type RBC,ADSOL,LEUKO REDUCED Unit Division 0 Status OF Unit TRANSFUSED Transfusion Status OK TO TRANSFUSE Crossmatch Result COMPATIBLE,ELECTRONIC Unit Number [id number] Blood Component Type RBC,ADSOL,LEUKO REDUCED Unit Division 0 Status OF Unit REL FROM ALLOC Transfusion Status OK TO TRANSFUSE Crossmatch Result COMPATIBLE,ELECTRONIC Unit Number [id number] Blood Component Type RBC,ADSOL,LEUKO REDUCED Unit Division 0 Status OF Unit TRANSFUSED Transfusion Status OK TO TRANSFUSE Crossmatch Result COMPATIBLE,ELECTRONIC Unit Number [id number] Blood Component Type RBC,ADSOL,LEUKO REDUCED,2ND CONT. Unit Division 0 Status OF Unit REL FROM ALLOC Transfusion Status OK TO TRANSFUSE Crossmatch Result COMPATIBLE,ELECTRONIC Unit Number [id number] Blood Component Type RBC,ADSOL,LEUKO REDUCED,2ND CONT. Unit Division 0 Status OF Unit TRANSFUSED Transfusion Status OK TO TRANSFUSE Crossmatch Result COMPATIBLE,ELECTRONIC Specimen Performing Laboratory [facility] [address] [place] [address] * BASIC METABOLIC PANEL (12/13/2017 11:17 AM) [...] Performing Laboratory Blood [facility] [address] [place] [address] * CBC (12/13/2017 11:17 AM) Component Value [...] Performing Laboratory [facility] [address] [place] [address] in this encounter Visit Diagnoses Diagnosis Pelvic [...] 1 capsule 1 capsule, Feeding Tube, NEEDED (POLYSOMNOGRAPHER FROM RX), Starting Wed12/27/17 at 1631, Until [...]
--- OUTSIDE RECORDS SUMMARY | 2018-03-07 00:03 | XMS REPORT | Encounter Summary ---
Author Author [facility] Organization [facility] Address Unknown Phone Unavailable Care Team Providers Care Bookmaker Map Name Role Phone Della Cuellar MD PCP Reason for Visit * Auth/Cert Status Reason Specialty Diagnoses / Referred By Referred To Procedures Contact Contact Diagnoses Pelvic mass Pelvic mass [R19.00] Pelvic mass in female P rocedures MT INTERPELVIABDOMI NAL AMPUTATION CHEY PELVECTOMY Encounter Details Date Type Department Care Team Description 12/14/2017 Anesthesia Main Operating Room Krunal Joaquin, SRNA Event [address] [place] [address] Anesthesia Record Procedure Name Responsible Anesthesia Start [...] for Incision; Carlos Manuel Rosales Drain, Sutures, [place], Hussain Pressure xeroform, 4x4's, and tegaderm. Injuries) [...] 1; 1.75 inches; Therapy completed; 12/30/17; [address] [place] 12/14/17; Left; Hip; 10 FR; 12/29/17; 12/14/17 0000 by [place], 12/29/17 1030 by Bobby Lea 1030; Per Provider SANJAY Terry RN Drain Peripheral 12/14/17; (unknown); L; Other 12/14/17 0000 by 12/20/17 1555 by Shay Ortega (Comment); 12/20/17; 1555 Ruma Reynolds RN Denise Catheter ETT 12/14/17; 0820; Ventilated by mask (1); 12/14/17 0820 by [place], 1826 by Brian, Direct laryngoscopy, Stylet; MD Kimberlyn Srinivasan CRNA Single-Lumen; 7mm; Mac; 3; Oral; 1-Full view of the glottis; 1 insertion attempt; Auscultation, ETCO2 Detector; 21 centimeters; 12/14/17; 1826 Peripheral 12/14/17; 0830; Provider; R; Anterior; 12/14/17 0830 by [place] , 12/20/17 0558 by Saini, IV Hand; 18 G; 1; 12/20/17; 0558 MD Scott Srinivasan RN Arterial 12/14/17; 0835 (created via procedure 12/14/17 0835 by Carolann, 12/15/17 1515 by Line documentation); L; Radial; 20 G; MD Rodoflo Yanez Lora, RN 12/15/17 (No longer draws [...]
--- OUTSIDE RECORDS SUMMARY | 2018-03-07 00:03 | XMS REPORT | Encounter Summary ---
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
--- OUTSIDE RECORDS SUMMARY | 2018-03-07 00:04 | XMS REPORT | Encounter Summary ---
Author Author [facility] Organization [facility] Address Unknown Phone Unavailable Care Team Providers Care Brand Sales Manager Name Role Phone Della Cuellar MD PCP Reason for Visit * Reason Comments Wound Check Encounter Details Date Type Department Care Team Description 12/06/2017 Telephone [facility] Tamiko Luther MD Wound Check Physicians - Orthopedics [address] [facility] [address]ST AND [address] FLOOR [place] [address] [place] [address] ORTHOPEDICS [facility] [phone] [place] [address] Social History Tobacco Use Types [...]
--- OUTSIDE RECORDS SUMMARY | 2018-03-07 00:04 | XMS REPORT | Encounter Summary ---
Author Author [facility] Organization [facility] Address Unknown Phone Unavailable Care Team Providers Care Machine Straw Hat Presser Name Role Phone Della Cuellar MD PCP Reason for Visit * Reason Comments Other Encounter Details Date Type Department Care Team Description 12/10/2017 Telephone [facility] Tamiko Luther MD Other Physicians - Orthopedics [address] [facility] [address]ST AND [address]ND FLOOR [place] [address] [place] [address] ORTHOPEDICS [facility] [phone] [place] [address] Social History Tobacco Use Types [...]
--- OUTSIDE RECORDS SUMMARY | 2018-03-07 00:05 | XMS REPORT | Continuity of Care Document ---
Author Author [facility] Address Unknown Phone Unavailable Allergies Active Description Code Type Severity Reaction Onset Reported/Identified Relationship to Patient Clinical Status Yes cephalexin [id number] Drug Allergy Mild N/A 03/05/2010 Yes cephalexin Drug Allergy 04/10/2010 Yes cephalexin Drug Allergy N/A N/A 04/10/2010 Yes cephalexin [id number] Drug Allergy Mild FACE GETS RED, 09/16/2015 [...] MD 401.9 ESSENTIAL HYPERTENSION 02/03/2011 YUNG CASHERO ASSOCIATE STORE DIRECTOR, ÁLVARO N 244.9 HYPOTHYROIDISM PRIMARY 02/03/2011 YUNG CASHERO ASSOCIATE STORE DIRECTOR, ÁLVARO N 250.00 DIABETES MELLITUS TYPE 2 02/03/2011 YUNG CASHERO ASSOCIATE STORE DIRECTOR, ÁLVARO N 272.0 HYPERCHOLESTEROLEMIA 02/03/2011 YUNG CASHERO ASSOCIATE STORE DIRECTOR, ÁLVARO N 401.9 ESSENTIAL HYPERTENSION 02/03/2011 FRANCI ASSOCIATE STORE DIRECTOR, ALBERTO R 244.9 HYPOTHYROIDISM PRIMARY 02/03/2011 FRANCI ASSOCIATE STORE DIRECTOR, ALBERTO R 250.00 DIABETES MELLITUS TYPE 2 02/03/2011 FRANCI ASSOCIATE STORE DIRECTOR, ALBERTO R 272.0 HYPERCHOLESTEROLEMIA 02/03/2011 FRANCI ASSOCIATE STORE DIRECTOR, ALBERTO R 401.9 ESSENTIAL HYPERTENSION 02/03/2011 ANGELITO [...] GARCIA MD 401.9 ESSENTIAL HYPERTENSION 02/03/2011 FRANCI ASSOCIATE STORE DIRECTOR, ALBERTO R 244.9 HYPOTHYROIDISM PRIMARY 02/03/2011 FRANCI ASSOCIATE STORE DIRECTOR, ALBERTO R 250.00 DIABETES MELLITUS TYPE 2 02/03/2011 FRANCI ASSOCIATE STORE DIRECTOR, ALBERTO R 272.0 HYPERCHOLESTEROLEMIA 02/03/2011 FRANCI ASSOCIATE STORE DIRECTOR, ALBERTO R 401.9 ESSENTIAL HYPERTENSION 02/03/2011 JOSE NAVARRO, JONY 244.9 HYPOTHYROIDISM PRIMARY 02/03/2011 JONY GARCIA MD 250.00 DIABETES MELLITUS TYPE 2 02/03/2011 JONY GARCIA MD 272.0 HYPERCHOLESTEROLEMIA 02/03/2011 JNOY GARCIA MD 401.9 ESSENTIAL HYPERTENSION 02/03/2011 JONY [...] INVOLVING PELVIC REGION AND THIGH 08/11/2013 ALBERTO KOORMA APRN R 719.46 PAIN IN JOINT INVOLVING [...] IN JOINT INVOLVING LOWER LEG 08/11/2013 JONY GRACIA MD.45 PAIN IN JOINT INVOLVING PELVIC REGION [...] DOA K 461.9 SINUSITIS ACUTE 11/02/2013 EDIE HARIKNS DO K 786.2 COUGH 11/02/2013 JOSE NAVARRO, [...] HARKINS DO 461.9 SINUSITIS ACUTE 11/02/2013 EDIE AHRKINS DO 786.2 COUGH 11/02/2013 JONY GARCIA MD [...] OBSTRUCTION OR GA 09/18/2015 JOE VASQUEZ M ELECTRICAL MAINTENANCE WORKER Ot M25.462 09/18/2015 VANPETERELAELUCIANO JOE M ELECTRICAL MAINTENANCE WORKER Ot M25.562 09/19/2015 VANPETERELAELUCIANO JOE M ELECTRICAL MAINTENANCE WORKER Ot M25.462 09/19/2015 VANPETERELAERE JOE M ELECTRICAL MAINTENANCE WORKER Ot M25.562 09/19/2015 GISSELL NAVARRO, EVELYN Kelley Ot K43.9 09/19/2015 GISSELL NAVARRO, EVELYN Kelley Ot Z01.812 09/19/2015 GISSELL NAVARRO, EVELYN Kelley Ot Z11.2 03/09/2016 Ot V76.12 OTH SCREEN MAMMO-MALIGN NEOPLASM OF JOSE 03/09/2016 Ot V76.12 OTH SCREEN MAMMO-MALIGN NEOPLASM OF JOSE 03/09/2016 BREANNA FIGUEROA ELECTRICAL MAINTENANCE WORKER Ot 719.46 JOINT PAIN-L/LEG 03/10/2016 Ot V76.12 OTH SCREEN MAMMO-MALIGN NEOPLASM OF JOSE 03/10/2016 Ot V76.12 OTH SCREEN MAMMO-MALIGN NEOPLASM OF JOSE 03/10/2016 BREANNA FIGUEROA ELECTRICAL MAINTENANCE WORKER Ot 719.46 JOINT PAIN-L/LEG 11/05/2016 YADIRA NAVARRO, [...] MAMMO-MALIGN NEOPLASM OF JOSE 02/23/2017 BREANNA FIGUEROA ELECTRICAL MAINTENANCE WORKER Ot 719.46 JOINT PAIN-L/LEG 02/25/2017 CHANTE MAHAJAN ASSOCIATE STORE DIRECTOR Ot M19.071 PRIMARY OSTEOARTHRITIS, RIGHT ANKLE AND 02/25/2017 CHANTE MAHAJAN ASSOCIATE STORE DIRECTOR Ot M77.31 CALCANEAL SPUR, RIGHT FOOT 2017 [...] LUMBAR REGION WITHOUT N 10/28/2017 TIMO RHOADES ASSOCIATE STORE DIRECTOR Ot M79.605 PAIN IN LEFT LEG 10/28/2017 TIMO RHOADES ASSOCIATE STORE DIRECTOR Ot R22.42 LOCALIZED SWELLING, MASS AND LUMP, LEFT 11/02/2017 OBED STYLES DOLINE S Ot M79.89 OTHER SPECIFIED SOFT TISSUE DISORDERS 11/02/2017 OBED STYLES DOLINE S Ot M79.89 OTHER SPECIFIED SOFT TISSUE DISORDERS 11/07/2017 OBED STYLES DOLINE S Ot M79.89 OTHER SPECIFIED SOFT TISSUE DISORDERS 11/16/2017 TIMO RHOADES ASSOCIATE STORE DIRECTOR Ot M79.605 PAIN IN LEFT LEG 11/16/2017 TIMO RHOADES ASSOCIATE STORE DIRECTOR Ot R22.42 LOCALIZED SWELLING, MASS AND LUMP, [...] DISORDERS 11/22/2017 ROLANDO ATWOOD APRN Ot Z79.82 BORDER MEASURER (CURRENT) USE OF ASPIRIN 11/22/2017 ROLANDO ATWOOD APRN Ot Z79.84 BORDER MEASURER (CURRENT) USE OF ORAL HYPOGLYC 11/22/2017 ROLANDO [...] DISORDERS 11/24/2017 ROLANDO ATWOOD APRN Ot Z79.82 BORDER MEASURER (CURRENT) USE OF ASPIRIN 11/24/2017 ROLANDO ATWOOD APRN Ot Z79.84 LONGTERM (CURRENT) USE OF ORAL HYPOGLYC 11/24/2017 ROLANDO ATWOOD APRN Ot Z88.1 ALLERGY STATUS TO OTHER ANTIBIOTIC AGENT 11/29/2017 DAVID NAVARRO, CORTNEY Martínez Ot R91.8 OTHER NONSPECIFIC ABNORMAL FINDING OF GERALDO Procedures Code [place] [address] A1C (IN-HOUSE) 10/13/2012 21163 MICRO ALBUMIN-IN HOUSE 10/13/2012 27612 ROUTINE VENIPUNCTURE 10/24/2012 51009 CMP 10/24/2012 74563 LIPID PANEL 10/24/2012 5935354 GFR CALC (RESULT ONLY) 10/24/2012 31381 TSH 10/24/2012 73126 A1C (IN-HOUSE) 01/23/2013 53803 A1C (IN-HOUSE) 05/02/2013 09339 ROUTINE VENIPUNCTURE 09/27/2013 33568 URIC ACID 09/27/2013 61616 A1C (IN-HOUSE) 12/07/2013 18249 MICRO ALBUMIN-IN HOUSE 12/07/2013 25673 ROUTINE VENIPUNCTURE 12/20/2013 7021312 GFR CALC (RESULT ONLY) 12/20/2013 91369 CMP 12/20/2013 60009 LIPID PANEL 12/20/2013 83447 TSH 12/20/2013 99437 A1C (IN-HOUSE) 03/12/2014 50696 A1C (IN-HOUSE) 06/14/2014 05236 OXIMETRY 10/03/2014 71050 A1C (IN-HOUSE) 10/03/2014 29039 A1C (IN-HOUSE) 12/28/2014 Results Test Result Range [...] Status Pt. Type Provider Facility Loc./Unit Complaint [id number] 12/28/2014 14:01:00 12/28/2014 23:59:59 CLS Outpatient JONY GARCIA MD [id number] 11/05/2014 17:29:00 11/05/2014 23:59:59 CLS Outpatient EDIE HARKINS DO [id number] 10/03/2014 13:15:00 10/03/2014 23:59:59 CLS Outpatient JONY GARCIA MD [id number] 09/03/2014 16:00:00 09/03/2014 23:59:59 CLS Outpatient JONY GARCIA MD [id number] 06/14/2014 13:34:00 06/14/2014 23:59:59 CLS Outpatient JONY GARCIA MD [id number] 05/23/2014 08:33:00 05/23/2014 23:59:59 CLS Outpatient ALBERTO KOROMA APRN [id number] 03/12/2014 13:55:00 03/12/2014 23:59:59 CLS Outpatient JONY GARCIA MD [id number] 12/20/2013 08:28:00 12/20/2013 23:59:59 CLS Outpatient JONY GARCIA MD [id number] 12/07/2013 14:48:00 12/07/2013 23:59:59 CLS Outpatient JONY GARCIA MD [id number] 11/07/2013 08:57:00 11/07/2013 23:59:59 CLS Outpatient ANGELITO SORENSON MD [id number] 11/02/2013 14:48:00 11/02/2013 23:59:59 CLS Outpatient ALBERTO KOROMA APRN [id number] 09/27/2013 13:00:00 09/27/2013 23:59:59 CLS Outpatient EDIE HARKINS DO [id number] 09/27/2013 13:00:00 09/27/2013 23:59:59 CLS Outpatient ÁLVARO DAMON APRN [id number] 08/21/2013 15:18:00 08/21/2013 23:59:59 CLS Outpatient JONY GARCIA MD [id number] 08/11/2013 13:12:00 08/11/2013 23:59:59 CLS Outpatient HENRY HERNANBREANNA [id number] 05/27/2013 13:02:00 05/27/2013 23:59:59 CLS Outpatient JAYLEN HERNAN, CASSIE Ren [id number] 10/24/2012 08:18:00 10/24/2012 23:59:59 CLS Outpatient JONY GARCIA MD [id number] 10/13/2012 13:18:00 10/13/2012 23:59:59 CLS Outpatient [id number] 07/18/2012 16:29:00 07/18/2012 23:59:59 [place] [id number] 07/18/2012 16:29:00 07/18/2012 23:59:59 CLS Outpatient JONY GARCIA MD [id number] 05/02/2013 15:42:00 Document Registration [id number] 01/23/2013 15:58:00 Document Registration [id number] 06/29/2017 09:40:00 06/29/2017 23:59:59 CLS Outpatient JONY GARCIA MD [facility] [id number] 12/20/2017 07:30:00 12/20/2017 23:59:59 CLS Preadmit DOUGIE WILKES MD [facility] SDC STENOSIS [id number] 11/26/2017 13:19:00 11/26/2017 23:59:59 CLS Outpatient CORTNEY HERNANDEZ MD [facility] RAD MASS R22.9 [id number] 11/22/2017 10:27:00 11/22/2017 13:26:00 DIS Emergency ROLANDO ATWOOD ASSOCIATE STORE DIRECTOR [facility] ER LEFT LEG SWOLLEN [id number] 11/01/2017 08:38:00 11/01/2017 23:59:59 CLS Outpatient HANNAH STYLES DO S [facility] RAD M79.89,M79.605 [id number] 10/27/2017 16:01:00 10/27/2017 23:59:59 CLS Outpatient TIMO RHOADES ASSOCIATE STORE DIRECTOR [facility] RAD SWELLIING AND PAIN [id number] 2017 10:13:00 2017 23:59:59 CLS Outpatient KATHE KOHLI JC Kelley [facility] RAD LOWER BACK PAIN [id number] 02/05/2017 13:49:00 02/05/2017 23:59:59 CLS Outpatient CHANTE MAHAJAN APRN [facility] RAD R FOOT PAIN [id number] 11/06/2016 13:27:00 11/06/2016 23:59:59 CLS Outpatient JANEE MAY MD [facility] RAD SCREENING [id number] 09/19/2015 09:31:00 09/19/2015 23:59:59 CLS Outpatient JANEE MAY MD [facility] RAD ROUTINE MAMMOGRAM SCREENING [id number] 09/16/2015 08:51:00 09/16/2015 23:59:59 CLS Outpatient JOE VASQUEZ ELECTRICAL MAINTENANCE WORKER [facility] RAD [id number] 09/16/2015 09:45:00 09/16/2015 19:11:00 DIS Outpatient EVELYN BORRERO MD [facility] VENTERAL HERNIA [id number] 09/06/2015 12:34:00 09/06/2015 23:59:59 CLS Outpatient EVELYN BORRERO MD [facility] PREOP [id number] 09/06/2015 12:29:00 09/06/2015 15:10:00 DIS Outpatient EVELYN OBRRERO MD [facility] [id number] 09/05/2015 05:35:00 09/05/2015 23:59:59 CLS Outpatient EVELYN BORRERO MD [facility] PREOP SCREENING [id number] 09/03/2015 13:22:00 09/03/2015 23:59:59 CLS Outpatient EVELYN BORRERO MD [facility] PREOP SCREENING [id number] 07/16/2014 11:37:00 07/16/2014 23:59:59 CLS Outpatient JANEE MAY MD [facility] RAD SCREENING [id number] 08/11/2013 14:04:00 08/11/2013 23:59:59 CLS Outpatient BREANNA FIGUEROA [facility] RAD PAIN IN JOINT, INV LOWER LEG [id number] 03/09/2016 14:02:00 Document Registration [id number] 01/04/2013 11:42:00 Document Registration [id number] 07/16/2012 19:45:00 Document Registration [id number] 02/18/2011 13:35:00 Document Registration
[2018-03-07] MEDS ORDERED: NS IV 1000 ML 1,000 ML ONE (00:20)
[2018-03-07 05:32] LABS: BASOPHILS % (AUTO) 0 % (0-10); EOSINOPHILS # (AUTO) 0.4 10^3/uL (0.0-0.3); EOSINOPHILS % (AUTO) 3 % (0-10); HEMATOCRIT 26 % (35-52); HEMOGLOBIN 8.2 G/DL (11.5-16.0); LYMPHOCYTES # (AUTO) 1.2 X 10^3 (1.0-4.0); LYMPHOCYTES % (AUTO) 9 % (12-44); MEAN CORPUSCULAR HEMOGLOBIN 26 PG (25-34); MEAN CORPUSCULAR HGB CONC 31 G/DL (32-36); MEAN CORPUSCULAR VOLUME 83 FL (80-99); MEAN PLATELET VOLUME 8.2 FL (7.4-10.4); MONOCYTES # (AUTO) 1.7 X 10^3 (0.0-1.0); MONOCYTES % (AUTO) 13 % (0-12); NEUTROPHILS # (AUTO) 9.9 X 10^3 (1.8-7.8); NEUTROPHILS % (AUTO) 75 % (42-75); PLATELET COUNT 485 10^3/uL (130-400); RED BLOOD COUNT 3.14 10^6/uL (4.35-5.85); RED CELL DISTRIBUTION WIDTH 18.8 % (10.0-14.5); WHITE BLOOD COUNT 13.1 10^3/uL (4.3-11.0)
[2018-03-07 05:50] LABS: ALANINE AMINOTRANSFERASE 60 U/L (0-55); ALBUMIN 2.1 GM/DL (3.2-4.5); ALKALINE PHOSPHATASE 176 U/L (40-136); BILIRUBIN,TOTAL 1.2 MG/DL (0.1-1.0); BUN/CREATININE RATIO 13; CALCIUM 8.3 MG/DL (8.5-10.1); CARBON DIOXIDE 21 MMOL/L (21-32); CHLORIDE 105 MMOL/L (98-107); CREATININE SERUM 0.72 MG/DL (0.60-1.30); GFR ESTIMATED > 60; GLUCOSE 107 MG/DL (70-105); POTASSIUM 4.4 MMOL/L (3.6-5.0); SODIUM 137 MMOL/L (135-145); TOTAL PROTEIN 5.2 GM/DL (6.4-8.2)
--- NOTE | 2018-03-07 05:58 | Diagnostic Imaging Report ---
Clinical indication: Patient with shortness of breath. Exam: Portable chest x-ray upright view. Comparisons: Chest x-ray dated 07/02/2010. Findings: There is interval slight lung volumes bilaterally compared to the prior study. There are small scattered areas of increased density in both lungs which may represent atelectasis, but superimposed infiltrate can't be completely excluded. There is no significant pleural effusion or pneumothorax. Pulmonary vasculature and cardiac silhouettes are within normal limits for portable projection. Interval placement of right PICC line with tip in the cavoatrial junction region. There is left curvature of the lumbar spine. Air distended gastric bubble is seen. Impression: 1.: There is slight low lung volumes compared to the prior study, with small patchy areas of bilateral lung atelectasis versus infiltrate. Chest x-ray PA and lateral views, with good inspiratory effort, may help better evaluate. 2: Interval placement of right PICC line with tip in the cavoatrial junction. Dictated by: Dictated on workstation # [id number]
[2018-03-07] MEDS: inSUlin ASPART (NovoLOG) 1 UNIT/0.01 ML (CHARGE PER UNIT) SC SCH ×4 (06:25→20:25)
[2018-03-07] MEDS: NS IV 1000 ML 1,000 ML IV SCH ×3 (08:48→21:50)
[2018-03-07] MEDS: oxyCODONE ER 10 MG (OxyCONTIN CR) TAB PO SCH ×2 (08:48→20:22)
[2018-03-07] MEDS ORDERED: BUSP30TA2 PO (13:52)
[2018-03-07] MEDS ORDERED: LOVA40TA2 PO (13:52)
[2018-03-07] MEDS ORDERED: FERR325T18 PO (13:52)
[2018-03-07] MEDS ORDERED: OXYC10TA7 PO (13:52)
[2018-03-07] MEDS ORDERED: COLL30OI TP (13:52)
[2018-03-07] MEDS ORDERED: ACET325T49 PO (13:52)
[2018-03-07] MEDS ORDERED: BUPR100T15 PO (13:52)
[2018-03-07] MEDS ORDERED: OXYC15TA79 PO (13:52)
[2018-03-07] MEDS ORDERED: ONDA4TAB10 PO (13:52)
[2018-03-07] MEDS ORDERED: METF10002 PO (13:52)
[2018-03-07] MEDS ORDERED: RIVA20TA PO (13:52)
[2018-03-07] MEDS ORDERED: LACT1CAP62 PO (13:52)
[2018-03-07] MEDS ORDERED: PANT40TA3 PO (13:52)
[2018-03-07] MEDS ORDERED: LEVO200T6 PO (13:52)
[2018-03-07] MEDS ORDERED: SITA100T12 PO (13:52)
[2018-03-07] MEDS ORDERED: SENN-40 PO (13:52)
[2018-03-07] MEDS ORDERED: GABA600T2 PO (13:52)
[2018-03-07] MEDS ORDERED: NORT75CA PO (13:52)
--- NOTE | 2018-03-07 15:18 | Wound Care Assessment ---
Wound Care Assessment Date Seen by Provider: Mar 07, 2018 Time Seen by Provider: 14:00 Chief Complaint L hip and groin wounds. 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 Smoking Status: Never a Smoker Recreational Drug Use: No Alcohol Use: Denies Use Review of Systems Pulmonary: No Dyspnea Cardiovascular: No: Chest Pain Musculoskeletal: back pain, leg pain Exam Vital Signs Date Time Temp Pulse Resp B/P (MAP) Pulse Ox O2 Delivery O2 Flow Rate FiO2 03/07/18 13:00 111 03/07/18 12:00 98.5 20 128/82 (97) 96 Nasal Cannula 1.00 Capillary Refill : Less Than 3 Seconds General Appearance: no apparent distress Respiratory: no respiratory distress Extremities: other (Status post L hip resection with thigh plap coverage and partial necrosis of flap and near complete dehiscence of coverage. Several satelite areas of full thickness necrosis. main wound measures 65 x 18 x 10 cm with deep pelvic structures exposed.) Results Laboratory Tests 03/06/18 21:24: White Blood Count 12.9H, Red Blood Count 2.77L, Hemoglobin 6.9*L, Hematocrit 23L , Mean Corpuscular Volume 83, Mean Corpuscular Hemoglobin 25, Mean Corpuscular Hemoglobin Concent 30L, Red Cell Distribution Width 19.9H, Platelet Count 559H, Mean Platelet Volume 8.4, Neutrophils (%) (Auto) 76H, Lymphocytes (%) (Auto) 9L , Monocytes (%) (Auto) 12, Eosinophils (%) (Auto) 3, Basophils (%) (Auto) 0, Neutrophils # (Auto) 9.8H, Lymphocytes # (Auto) 1.1, Monocytes # (Auto) 1.5H, Eosinophils # (Auto) 0.4H, Basophils # (Auto) 0.0, Sodium Level 137, Potassium Level 4.5, Chloride Level 103, Carbon Dioxide Level 23, Anion Gap 11, Blood Urea Nitrogen 10, Creatinine 0.77, Estimat Glomerular Filtration Rate > 60, BUN/ Creatinine Ratio 13, Glucose Level 113H, Lactic Acid Level 2.88*H, Calcium Level 8.6, Total Bilirubin 0.2, Aspartate Amino Transf (AST/SGOT) 139H, Alanine Aminotransferase (ALT/SGPT) 68H, Alkaline Phosphatase 186H, Total Protein 5.5L, Albumin 2.3L 03/06/18 22:00: Urine Color YELLOW, Urine Clarity SLIGHTLY CLOUDY, Urine pH 5, Urine Specific [place] 1.015L, Urine Protein 2+H, Urine Glucose (UA) NEGATIVE, Urine Ketones NEGATIVE, Urine Nitrite NEGATIVE, Urine Bilirubin NEGATIVE, Urine Urobilinogen NORMAL, Urine Leukocyte Esterase 2+H, Urine RBC (Auto) 1+H, Urine RBC 0-2, Urine WBC 10-25H, Urine Squamous Epithelial Cells 0-2, Urine Crystals NONE, Urine Bacteria TRACE, Urine Casts NONE, Urine Mucus NEGATIVE, Urine Yeast LARGEH , Urine Culture Indicated YES 03/06/18 23:25: Lactic Acid Level 1.57 03/07/18 05:14: Glucometer 117H 03/07/18 05:20: White Blood Count 13.1H, Red Blood Count 3.14L, Hemoglobin 8.2L, Hematocrit 26L , Mean Corpuscular Volume 83, Mean Corpuscular Hemoglobin 26, Mean Corpuscular Hemoglobin Concent 31L, Red Cell Distribution Width 18.8H, Platelet Count 485H, Mean Platelet Volume 8.2, Neutrophils (%) (Auto) 75, Lymphocytes (%) (Auto) 9L, Monocytes (%) (Auto) 13H, Eosinophils (%) (Auto) 3, Basophils (%) (Auto) 0, Neutrophils # (Auto) 9.9H, Lymphocytes # (Auto) 1.2, Monocytes # (Auto) 1.7H, Eosinophils # (Auto) 0.4H, Basophils # (Auto) 0.0, Sodium Level 137, Potassium Level 4.4, Chloride Level 105, Carbon Dioxide Level 21, Anion Gap 11, Blood Urea Nitrogen 9, Creatinine 0.72, Estimat Glomerular Filtration Rate > 60, BUN/ Creatinine Ratio 13, Glucose Level 107H, Lactic Acid Level 1.26, Calcium Level 8.3L, Total Bilirubin 1.2H, Aspartate Amino Transf (AST/SGOT) 97H, Alanine Aminotransferase (ALT/SGPT) 60H, Alkaline Phosphatase 176H, Total Protein 5.2L, Albumin 2.1L 03/07/18 10:56: Glucometer 98 03/07/18 13:47: Lab Scanned Report Transfusion Reaction Form Microbiology 03/06/18 Blood Culture - Preliminary, Resulted 03/06/18 Urine Culture - Preliminary, Resulted Sent To [facility] Microbiology 03/06/18 Blood Culture - Preliminary, Resulted 03/06/18 Urine Culture - Preliminary, Resulted Sent To [facility] Assessment/Plan/Dx 1. Disruption of L hip wound closure, with partial necrosis a nd exposed deep pelvic structures. 2. Chondrosarcoma of L pelvis. Plan: wound will be loosely packed with Kerlix, dampened with 1/4 strength Dakin's solution, in an attempt to stabilize the situation until the patient may return to [facility] for definitive closure. LUNA WILSON MD Mar 07, 2018 15:18
[2018-03-07] MEDS ORDERED: NON-FORMULARY MEDICATION 1 EA EA (Ondansetron HCl 4 MG) PO PRN (16:30)
[2018-03-07] MEDS ORDERED: NON-FORMULARY MEDICATION 1 EA EA (Oxycodone HCl 15 MG) PO PRN (16:30)
[2018-03-07] MEDS ORDERED: PATIENT MAY USE OWN MEDS, ALL MC SCH (16:30)
[2018-03-07] MEDS ORDERED: MEROPENEM 1,000 MG in NS (IVPB) 100 ML IV ONE (16:45)
[2018-03-07] MEDS ORDERED: NON-FORMULARY MEDICATION 1 EA EA (Lactobacillus Acidophilus (Probiotic) 1 EACH) PO SCH (17:00)
[2018-03-07] MEDS: RIVAROXABAN 20 MG TABLET (XARELTO) PO SCH (17:21)
[2018-03-07] MEDS: FERROUS SULF 325 MG (IRON) TAB PO SCH (17:21)
[2018-03-07] MEDS: metFORMIN 500 MG (GLUCOPHAGE) TAB PO SCH (17:22)
[2018-03-07] MEDS: GABAPENTIN 600 MG (NEURONTIN) TAB PO SCH ×2 (17:23→23:45)
[2018-03-07] MEDS: MEROPENEM 500 MG in NS (IVPB) 100 ML IV SCH ×2 (17:26→23:44)
[2018-03-07] MEDS: LACTOBACILLUS Acidoph/Bulgar (LACTINEX/FLORANEX) TAB PO SCH (17:28)
--- NOTE | 2018-03-07 17:34 | History & Physicial ---
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 She has had a nonhealing wound since that surgery and has been doing wound care as well as IV antibiotics with home health. She had lab drawn and was contacted by the home health nurse and told she needed to go to the emergency room due to a hemoglobin of 6.8. She has required blood transfusions due to low hemoglobin a few times since her surgery. She was found to be tachycardic with an elevated WBC count so a sepsis workup was initiated. She was found to have a UTI and it was decided to admit her for blood transfusion, IV antibiotics and further evaluation and monitoring. Date of Admission Mar 06, 2018 at 23:00 Date Seen by Provider: Mar 07, 2018 Time Seen by Provider: 12:30 I consulted on this patient on 03/07/18 17:24 Attending Physician Ike Peng MD Admitting Physician Della Cuellar DO Consult Allergies and Home Medications Allergies Coded Allergies: cephalexin (Unverified Allergy, Mild, FACE GETS RED, FEELS REALLY HOT, ) Home Medications Acetaminophen 325 Mg Tablet, 650 MG PO Q6H PRN for PAIN-MILD TO MODERATE, ( Reported) take 2(325mg) tablets Aspirin 81 Mg Tablet.dr, 81 MG PO DAILY, (Reported) Bupropion HCl 100 Mg Tablet, 100 MG PO TID, (Reported) Buspirone HCl 30 Mg Tablet, 30 MG PO BID, (Reported) Collagenase 30 Gm Oint..gm., 1 APPFUL TP DAILY PRN for left lower abdominal wound, (Reported) Ferrous Sulfate 325 Mg Tablet, 325 MG PO TID, (Reported) Gabapentin 600 Mg Tablet, 600 MG PO Q6H, (Reported) Lactobacillus Acidophilus 1 Each Capsule, 1 EACH PO BID WITH MEALS, (Reported) Levothyroxine Sodium 200 Mcg Tablet, 200 MCG PO DAILY, (Reported) Lovastatin 40 Mg Tablet, 40 MG PO HS, (Reported) Metformin HCl 1,000 Mg Tablet, 1,000 MG PO BID, (Reported) Nortriptyline HCl 75 Mg Capsule, 75 MG PO HS, (Reported) Ondansetron HCl 4 Mg Tablet, 4 MG PO Q6H PRN for NAUSEA/VOMITING-1ST LINE, ( Reported) Oxycodone HCl 10 Mg Tablet, 10 MG PO BID, (Reported) Oxycodone HCl 15 Mg Tablet, 15 MG PO Q4H PRN for PAIN-MODERATE, (Reported) Pantoprazole Sodium 40 Mg Tablet.dr, 40 MG PO DAILY, (Reported) Rivaroxaban 20 Mg Tablet, 20 MG PO DAILY, (Reported) Sennosides/Docusate Sodium 1 Each Tablet, 1 EACH PO BID, (Reported) Sitagliptin Phosphate 100 Mg Tablet, 100 MG PO DAILY, (Reported) Patient Home Medication List Home Medication List Reviewed: Yes Past Yodylam-Macsff-Vcrrxp Hx Patient Social History Marrital Status: Alcohol Use: Denies Use Recreational Drug Use: No Smoking Status: Never a Smoker 2nd Hand Smoke Exposure: No Physical Abuse Screen: No Sexual Abuse: No Recent Foreign Travel: No Contact w/other who traveled: No Recent Infectious Disease Expo: No Immunizations Up To Date Date of Pneumonia Vaccine: May 07, 2015 Date of Influenza Vaccine: Jul 24, 2015 Seasonal Allergies Seasonal Allergies: No Surgeries Yes (JAW SURGERY, LEFT HIP/LEG AMPUTATION) Section, Orthopedic Respiratory No Cardiovascular Yes High Cholesterol, Hypertension Neurological No Reproductive System Hx Reproductive Disorders: No Sexually Transmitted Disease: No HIV/AIDS: No Female Reproductive Disorders: Denies Gastrointestinal No Musculoskeletal Arthritis, Chronic Back Pain Endocrine History of Endocrine Disorders: Yes Endocrine Disorders: Hypothyroidsim, Diabetes, Non-Insulin dep HEENT Loss of Vision: Denies Hearing Impairment: Denies Cancer Yes Bone Did You Recieve Any Treatments: Yes Type of Treatment: Surgical Intervention Cancer Comment: November had Left leg/hip removed due to bone cancer. Psychosocial History of Psychiatric Problem: Yes Behavioral Health Disorders: Anxiety, Depression Integumentary History of Skin or Integumenta: Yes (DRY SPOT ON LEG) Blood Transfusions History of Blood Disorders: No Adverse Reaction to a Blood Tr: No Constitutional: malaise, weakness EENTM: No see HPI, No no symptoms reported, No ear discharge, No hearing loss, No ear pain, No blurred vision, No double vision, No eye pain, No tearing, No vision loss, No dental problems, No hoarseness, No mouth pain, No mouth swelling , No epistaxis, No nose congestion, No nose pain, No throat pain, No throat swelling, No other Respiratory: No no symptoms reported, No see HPI, No cough, No dyspnea on exertion, No hemoptysis, No orthopnea, No phlegm, No short of breath, No stridor , No wheezing, No other Cardiovascular: No no symptoms reported, No see HPI, No chest pain, No edema, No Hx of Intervention, No palpitations, No syncope, No vascular heart diseas, No other Gastrointestinal: No RUQ, No LUQ, No RLQ, No LLQ, No no symptoms reported, No see HPI, No abdominal pain, No constipation, No diarrhea, No dysphagia, No hematemesis, No heartburn, No jaundice, No loss of appetite, No melena, No nausea, No vomiting, No other Genitourinary: No no symptoms reported, No see HPI, No decreased output, No discharge, No dysuria, No frequency, No hematuria, No hesitancy, No incontinence , No nocturia, No pain, No other Musculoskeletal: other (left leg amputation) Skin: other (draining wound from left leg amputation) Psychiatric/Neurological: Emotional Problems (stress from medical issues), Weakness Physical Exam Vital Signs Vital Signs - First Documented 03/06/18 03/06/18 21:19 23:30 Temp 99.5 Pulse 125 Resp 20 B/P (MAP) 138/88 (105) Pulse Ox 94 O2 Delivery Room Air Capillary Refill : Less Than 3 Seconds General Appearance: Mild Distress HEENT: Normal ENT Inspection Neck: Supple Respiratory: Lungs Clear Cardiovascular: Regular Rate, Rhythm Gastrointestinal: Normal Bowel Sounds, Non Tender, Soft Back: No CVA Tenderness Extremity: Non Tender, No Calf Tenderness (on right) Neurologic/Psychiatric: Alert, Oriented x3 Skin: Other (eschar to left hip with dressing in place) Comments Laboratory Tests 03/06/18 21:24: White Blood Count 12.9H, Red Blood Count 2.77L, Hemoglobin 6.9*L, Hematocrit 23L , Mean Corpuscular Volume 83, Mean Corpuscular Hemoglobin 25, Mean Corpuscular Hemoglobin Concent 30L, Red Cell Distribution Width 19.9H, Platelet Count 559H, Mean Platelet Volume 8.4, Neutrophils (%) (Auto) 76H, Lymphocytes (%) (Auto) 9L , Monocytes (%) (Auto) 12, Eosinophils (%) (Auto) 3, Basophils (%) (Auto) 0, Neutrophils # (Auto) 9.8H, Lymphocytes # (Auto) 1.1, Monocytes # (Auto) 1.5H, Eosinophils # (Auto) 0.4H, Basophils # (Auto) 0.0, Sodium Level 137, Potassium Level 4.5, Chloride Level 103, Carbon Dioxide Level 23, Anion Gap 11, Blood Urea Nitrogen 10, Creatinine 0.77, Estimat Glomerular Filtration Rate > 60, BUN/ Creatinine Ratio 13, Glucose Level 113H, Lactic Acid Level 2.88*H, Calcium Level 8.6, Total Bilirubin 0.2, Aspartate Amino Transf (AST/SGOT) 139H, Alanine Aminotransferase (ALT/SGPT) 68H, Alkaline Phosphatase 186H, Total Protein 5.5L, Albumin 2.3L 03/06/18 22:00: Urine Color YELLOW, Urine Clarity SLIGHTLY CLOUDY, Urine pH 5, Urine Specific [place] 1.015L, Urine Protein 2+H, Urine Glucose (UA) NEGATIVE, Urine Ketones NEGATIVE, Urine Nitrite NEGATIVE, Urine Bilirubin NEGATIVE, Urine Urobilinogen NORMAL, Urine Leukocyte Esterase 2+H, Urine RBC (Auto) 1+H, Urine RBC 0-2, Urine WBC 10-25H, Urine Squamous Epithelial Cells 0-2, Urine Crystals NONE, Urine Bacteria TRACE, Urine Casts NONE, Urine Mucus NEGATIVE, Urine Yeast LARGEH , Urine Culture Indicated YES 03/06/18 23:25: Lactic Acid Level 1.57 03/07/18 05:14: Glucometer 117H 03/07/18 05:20: White Blood Count 13.1H, Red Blood Count 3.14L, Hemoglobin 8.2L, Hematocrit 26L , Mean Corpuscular Volume 83, Mean Corpuscular Hemoglobin 26, Mean Corpuscular Hemoglobin Concent 31L, Red Cell Distribution Width 18.8H, Platelet Count 485H, Mean Platelet Volume 8.2, Neutrophils (%) (Auto) 75, Lymphocytes (%) (Auto) 9L, Monocytes (%) (Auto) 13H, Eosinophils (%) (Auto) 3, Basophils (%) (Auto) 0, Neutrophils # (Auto) 9.9H, Lymphocytes # (Auto) 1.2, Monocytes # (Auto) 1.7H, Eosinophils # (Auto) 0.4H, Basophils # (Auto) 0.0, Sodium Level 137, Potassium Level 4.4, Chloride Level 105, Carbon Dioxide Level 21, Anion Gap 11, Blood Urea Nitrogen 9, Creatinine 0.72, Estimat Glomerular Filtration Rate > 60, BUN/ Creatinine Ratio 13, Glucose Level 107H, Lactic Acid Level 1.26, Calcium Level 8.3L, Total Bilirubin 1.2H, Aspartate Amino Transf (AST/SGOT) 97H, Alanine Aminotransferase (ALT/SGPT) 60H, Alkaline Phosphatase 176H, Total Protein 5.2L, Albumin 2.1L 03/07/18 10:56: Glucometer 98 03/07/18 13:47: Lab Scanned Report Transfusion Reaction Form 03/07/18 15:45: Glucometer 150H Microbiology 03/06/18 Blood Culture, Unverified Pending 03/06/18 Urine Culture - Final, Complete Yeast species Assessment/Plan Assessment and Plan 1. Acute on Chronic Anemia--admit and transfuse and monitor H/H 2. Left leg amputation with nonhealing wound--IV antibiotics and consult wound care 3. Acute UTI--cover with IV antibiotics and await culture results 4. Diabetes mellitus--start accuchecks with SSI A Admission Diagnosis Admission Status: Inpatient Order (span 2 midnights) Reason for Inpatient Admission: Patient will need IV antibiotics, wound consult and monitoring of hemoglobin expected to be at least 2 midnights Clinical Quality Measures DVT/VTE Risk/Contraindication: Risk Factor Score Per Nursin RFS Level Per Nursing on Admit: 4+=Very High DELLA CUELLAR DO Mar 07, 2018 17:34
[2018-03-07] MEDS: NORTRIPTYLINE 25 MG (PAMELOR) CAP PO SCH (20:21)
[2018-03-07] MEDS: buPROPion 100 MG (WELLBUTRIN) TAB PO SCH (20:21)
[2018-03-07] MEDS: busPIRone 15 MG (BUSPAR) TABLET PO SCH (20:22)
[2018-03-07] MEDS: SENNA W/DOCUSATE (SENOKOT S) TABLET PO SCH (20:22)
[2018-03-07] MEDS: SIMvastatin 20 MG (ZOCOR) TAB PO SCH (20:22)
[2018-03-07] MEDS ORDERED: SENNOSIDES PO SCH (21:00)
[2018-03-07] MEDS ORDERED: NON-FORMULARY MEDICATION 1 EA EA (Buspirone HCl 30 MG) PO SCH (21:00)
[2018-03-07] MEDS ORDERED: NON-FORMULARY MEDICATION 1 EA EA (Lovastatin 40 MG) PO SCH (21:00)
[2018-03-07] MEDS ORDERED: NON-FORMULARY MEDICATION 1 EA EA (Oxycodone HCl 10 MG) PO SCH (21:00)
[2018-03-07] MEDS ORDERED: NON-FORMULARY MEDICATION 1 EA EA (Metformin HCl 1,000 MG) PO SCH (21:00)
[2018-03-07] MEDS ORDERED: DOCUSATE SODIUM PO SCH (21:00)
[2018-03-07] MEDS ORDERED: NORTRIPTYLINE HCL 75 MG PO SCH (21:00)
[2018-03-07] MEDS ORDERED: MEROPENEM 1,000 MG in NS (IVPB) 100 ML IV SCH (22:00)
[2018-03-07] MEDS ORDERED: cefTRIAXone 1 GM/NS 50 ML IVPB IV SCH ×2 (23:00)
[2018-03-08] VITALS (12 sets, daily range): BP systolic 117–149; BP diastolic 66–85
[2018-03-08] MEDS: MEROPENEM 500 MG in NS (IVPB) 100 ML IV SCH ×4 (05:30→23:50)
[2018-03-08 05:43] LABS: BASOPHILS % (AUTO) 0 % (0-10); EOSINOPHILS # (AUTO) 0.3 10^3/uL (0.0-0.3); EOSINOPHILS % (AUTO) 2 % (0-10); HEMATOCRIT 24 % (35-52); HEMOGLOBIN 7.4 G/DL (11.5-16.0); LYMPHOCYTES % (AUTO) 9 % (12-44); MEAN CORPUSCULAR HEMOGLOBIN 25 PG (25-34); MEAN CORPUSCULAR HGB CONC 31 G/DL (32-36); MEAN CORPUSCULAR VOLUME 83 FL (80-99); MEAN PLATELET VOLUME 8.2 FL (7.4-10.4); MONOCYTES # (AUTO) 1.5 X 10^3 (0.0-1.0); MONOCYTES % (AUTO) 13 % (0-12); NEUTROPHILS # (AUTO) 9.4 X 10^3 (1.8-7.8); NEUTROPHILS % (AUTO) 76 % (42-75); PLATELET COUNT 443 10^3/uL (130-400); RED BLOOD COUNT 2.92 10^6/uL (4.35-5.85); RED CELL DISTRIBUTION WIDTH 19.3 % (10.0-14.5); WHITE BLOOD COUNT 12.3 10^3/uL (4.3-11.0)
[2018-03-08 06:16] LABS: ALANINE AMINOTRANSFERASE 41 U/L (0-55); ALBUMIN 2.1 GM/DL (3.2-4.5); ALKALINE PHOSPHATASE 156 U/L (40-136); BILIRUBIN,TOTAL 0.4 MG/DL (0.1-1.0); BUN/CREATININE RATIO 13; CALCIUM 8.2 MG/DL (8.5-10.1); CARBON DIOXIDE 21 MMOL/L (21-32); CHLORIDE 108 MMOL/L (98-107); CREATININE SERUM 0.69 MG/DL (0.60-1.30); GFR ESTIMATED > 60; GLUCOSE 91 MG/DL (70-105); SODIUM 139 MMOL/L (135-145); TOTAL PROTEIN 5.1 GM/DL (6.4-8.2)
[2018-03-08] MEDS: FERROUS SULF 325 MG (IRON) TAB PO SCH ×3 (06:16→17:11)
[2018-03-08] MEDS: LACTOBACILLUS Acidoph/Bulgar (LACTINEX/FLORANEX) TAB PO SCH ×2 (06:16→17:11)
[2018-03-08] MEDS: LEVOTHYROXINE 100 MCG (LEVOTHROID) TAB PO SCH (06:17)
[2018-03-08] MEDS: PANTOPRAZOLE 40 MG (PROTONIX) TAB PO SCH (06:17)
[2018-03-08] MEDS: GABAPENTIN 600 MG (NEURONTIN) TAB PO SCH ×4 (06:17→23:50)
[2018-03-08] MEDS: metFORMIN 500 MG (GLUCOPHAGE) TAB PO SCH ×2 (06:19→17:11)
[2018-03-08] MEDS: inSUlin ASPART (NovoLOG) 1 UNIT/0.01 ML (CHARGE PER UNIT) SC SCH ×4 (06:29→20:53)
[2018-03-08] MEDS: NS IV 1000 ML 1,000 ML IV SCH ×3 (07:21→18:53)
[2018-03-08] MEDS: SENNA W/DOCUSATE (SENOKOT S) TABLET PO SCH ×2 (08:43→20:44)
[2018-03-08] MEDS: LINAGLIPTIN (TRADJENTA) 5 MG TABLET PO SCH (08:44)
[2018-03-08] MEDS: busPIRone 15 MG (BUSPAR) TABLET PO SCH ×2 (08:44→20:43)
[2018-03-08] MEDS: ASPIRIN E.C. 81 MG (ECOTRIN) TAB PO SCH (08:44)
[2018-03-08] MEDS: buPROPion 100 MG (WELLBUTRIN) TAB PO SCH ×3 (08:48→20:44)
[2018-03-08] MEDS: oxyCODONE ER 10 MG (OxyCONTIN CR) TAB PO SCH ×2 (08:48→20:44)
[2018-03-08] MEDS ORDERED: NON-FORMULARY MEDICATION 1 EA EA (Levothyroxine Sodium 200 MCG) PO SCH (09:00)
[2018-03-08] MEDS ORDERED: NON-FORMULARY MEDICATION 1 EA EA (Sitagliptin Phosphate (Januvia) 100 MG) PO SCH (09:00)
[2018-03-08] MEDS ORDERED: RIVAROXABAN 20 MG TABLET (XARELTO) PO SCH (09:00)
[2018-03-08] MEDS ORDERED: NON-FORMULARY MEDICATION 1 EA EA (Aspirin (Aspir 81) 81 MG) PO SCH (09:00)
[2018-03-08] MEDS ORDERED: VANCOMYCIN INJECTION 0.1 MG in NS (IVPB) 250 ML IV SCH (13:00)
[2018-03-08] MEDS ORDERED: fluCOnazole (DIFLUCAN) 100 MG TAB PO NR (13:00)
--- NOTE | 2018-03-08 13:05 | Progress Note (SOAP) ---
Subjective Date Seen by Provider: Mar 08, 2018 Time Seen by Provider: 13:01 Subjective/Events-last exam Fwup acute on chronic anemia requiring transfusion, S/P left leg amputation for chondrosarcoma with nonhealing infected wound--patient states was told MRSA, DMII, Hypertension. C/O burning pain in mouth. Wound care had talked about her seeing plastic surgery for revision of her wound. Focused Exam Lactate Level 03/06/18 21:24: Lactic Acid Level 2.88*H 03/06/18 23:25: Lactic Acid Level 1.57 03/07/18 05:20: Lactic Acid Level 1.26 Objective Exam Vital Signs Date Time Temp Pulse Resp B/P (MAP) Pulse Ox O2 Delivery O2 Flow Rate FiO2 03/08/18 11:52 98.5 112 20 126/66 (86) 92 Room Air 03/08/18 07:52 98.4 114 20 117/76 (90) 94 Room Air 03/08/18 07:51 109 03/08/18 03:51 99.8 106 18 130/67 (88) 96 Room Air 03/08/18 01:00 108 03/08/18 00:04 100.1 116 16 118/75 (89) 94 Room Air 03/07/18 21:33 Nasal Cannula 1.00 03/07/18 20:48 99.3 128 20 136/77 (96) 92 Room Air 03/07/18 19:00 125 03/07/18 15:35 98.6 107 16 139/81 (100) 96 Room Air I & O 03/08/18 07:00 Intake Total 3490 ml Output Total 1775 ml Balance 1715 ml Capillary Refill : Less Than 3 Seconds General Appearance: No Apparent Distress Neck: Supple Respiratory: Lungs Clear Cardiovascular: Tachycardia Gastrointestinal: normal bowel sounds, non tender, soft Neurologic/Psychiatric: Alert Skin: Other (left hip with eschar and dressings in place) Results Lab Laboratory Tests 03/07/18 13:47: Lab Scanned Report Transfusion Reaction Form 03/07/18 15:45: Glucometer 150H 03/07/18 20:24: Glucometer 106 03/08/18 05:35: White Blood Count 12.3H, Red Blood Count 2.92L, Hemoglobin 7.4L, Hematocrit 24L , Mean Corpuscular Volume 83, Mean Corpuscular Hemoglobin 25, Mean Corpuscular Hemoglobin Concent 31L, Red Cell Distribution Width 19.3H, Platelet Count 443H, Mean Platelet Volume 8.2, Neutrophils (%) (Auto) 76H, Lymphocytes (%) (Auto) 9L , Monocytes (%) (Auto) 13H, Eosinophils (%) (Auto) 2, Basophils (%) (Auto) 0, Neutrophils # (Auto) 9.4H, Lymphocytes # (Auto) 1.0, Monocytes # (Auto) 1.5H, Eosinophils # (Auto) 0.3, Basophils # (Auto) 0.0, Sodium Level 139, Potassium Level 4.0, Chloride Level 108H, Carbon Dioxide Level 21, Anion Gap 10, Blood Urea Nitrogen 9, Creatinine 0.69, Estimat Glomerular Filtration Rate > 60, BUN/ Creatinine Ratio 13, Glucose Level 91, Calcium Level 8.2L, Total Bilirubin 0.4, Aspartate Amino Transf (AST/SGOT) 47H, Alanine Aminotransferase (ALT/SGPT) 41, Alkaline Phosphatase 156H, Total Protein 5.1L, Albumin 2.1L 03/08/18 10:29: Glucometer 163H Microbiology 03/06/18 Blood Culture, Unverified Pending 03/06/18 Urine Culture - Final, Complete Yeast species Assessment/Plan Assessment/Plan Assess & Plan/Chief Complaint 1. Acute on Chronic Anemia--repeat 2u pRBCs and check H/H in AM 2. Left Leg Chondrosarcoma--S/P amputation with nonhealing wound with MRSA-- add Vancomycin 3. DM II--continue SSI and metformin 4. Stomatitis--add nystatin Clinical Quality Measures Admission Status Admission Dx 1. Acute on Chronic Anemia--admit and transfuse and monitor H/H 2. Left leg amputation with nonhealing wound--IV antibiotics and consult wound care 3. Acute UTI--cover with IV antibiotics and await culture results 4. Diabetes mellitus--start accuchecks with SSI A DVT/VTE Risk/Contraindication: Risk Factor Score Per Nursin RFS Level Per Nursing on Admit: 4+=Very High HANNAH STYLES DO Mar 08, 2018 13:05
[2018-03-08] MEDS ORDERED: VANCOMYCIN INJECTION 2,000 MG in NS IV 500 ML 500 ML IV NR (13:30)
[2018-03-08] MEDS ORDERED: NS IV 500 ML 500 ML ONE (13:34)
[2018-03-08] MEDS: NYSTATIN ORAL SUSP 5 ML UDC PO SCH ×2 (17:10→23:50)
[2018-03-08] MEDS: RIVAROXABAN 20 MG TABLET (XARELTO) PO SCH (17:11)
--- NOTE | 2018-03-08 18:34 | Wound Care Assessment ---
Wound Care Assessment Date Seen by Provider: Mar 08, 2018 Time Seen by Provider: 18:29 Chief Complaint L hip and groin wounds. 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 Past Medical History: Admits Diabetes Type II Smoking Status: Never a Smoker Recreational Drug Use: No Alcohol Use: Denies Use Review of Systems Pulmonary: No Dyspnea Cardiovascular: No: Chest Pain Exam Vital Signs Date Time Temp Pulse Resp B/P (MAP) Pulse Ox O2 Delivery O2 Flow Rate FiO2 03/08/18 18:14 98.9 118 16 135/80 95 Room Air 03/07/18 21:33 1.00 Capillary Refill : Less Than 3 Seconds General Appearance: no apparent distress Skin: other (L iliac crest -- 65.0 x 18.0 x 15.0 cm, 50% black eschar, 25% slough, 25% granulation, deep pelvic structures exposed. Large serous drainage. ) Results Laboratory Tests 03/07/18 20:24: Glucometer 106 03/08/18 05:35: White Blood Count 12.3H, Red Blood Count 2.92L, Hemoglobin 7.4L, Hematocrit 24L , Mean Corpuscular Volume 83, Mean Corpuscular Hemoglobin 25, Mean Corpuscular Hemoglobin Concent 31L, Red Cell Distribution Width 19.3H, Platelet Count 443H, Mean Platelet Volume 8.2, Neutrophils (%) (Auto) 76H, Lymphocytes (%) (Auto) 9L , Monocytes (%) (Auto) 13H, Eosinophils (%) (Auto) 2, Basophils (%) (Auto) 0, Neutrophils # (Auto) 9.4H, Lymphocytes # (Auto) 1.0, Monocytes # (Auto) 1.5H, Eosinophils # (Auto) 0.3, Basophils # (Auto) 0.0, Sodium Level 139, Potassium Level 4.0, Chloride Level 108H, Carbon Dioxide Level 21, Anion Gap 10, Blood Urea Nitrogen 9, Creatinine 0.69, Estimat Glomerular Filtration Rate > 60, BUN/ Creatinine Ratio 13, Glucose Level 91, Calcium Level 8.2L, Total Bilirubin 0.4, Aspartate Amino Transf (AST/SGOT) 47H, Alanine Aminotransferase (ALT/SGPT) 41, Alkaline Phosphatase 156H, Total Protein 5.1L, Albumin 2.1L 03/08/18 10:29: Glucometer 163H 03/08/18 15:39: Glucometer 139H Microbiology 03/06/18 Blood Culture - Preliminary, Resulted No growth 03/06/18 Urine Culture - Final, Complete Yeast species Microbiology 03/06/18 Blood Culture - Preliminary, Resulted No growth 03/06/18 Blood Culture - Preliminary, Resulted No growth 03/06/18 Urine Culture - Final, Complete Yeast species Assessment/Plan/Dx 1. Disruption of L hip wound closure, with partial necrosis a nd exposed deep pelvic structures. 2. Chondrosarcoma of L pelvis. Plan: wound will be loosely packed with Kerlix, dampened with 1/4 strength Dakin's solution, in an attempt to stabilize the situation until the patient may return to .U. for definitive closure. LUNA WILSON MD Mar 08, 2018 18:34
[2018-03-08] MEDS ORDERED: diphenhydrAMINE 25 MG TAB (BENADRYL) PO NR (20:30)
[2018-03-08] MEDS ORDERED: ACETAMINOPHEN 325 MG TABLET PO PRN (20:30)
[2018-03-08] MEDS: NORTRIPTYLINE 25 MG (PAMELOR) CAP PO SCH (20:44)
[2018-03-08] MEDS: SIMvastatin 20 MG (ZOCOR) TAB PO SCH (20:45)
[2018-03-09 00:09] VITALS: BP 115/77
[2018-03-09] MEDS: VANCOMYCIN 1500 MG/NS 500 ML IVPB IV SCH ×4 (01:38→15:41)
[2018-03-09 04:00] VITALS: BP 122/66
[2018-03-09 06:43] LABS: BASOPHILS % (AUTO) 0 % (0-10); EOSINOPHILS # (AUTO) 0.2 10^3/uL (0.0-0.3); EOSINOPHILS % (AUTO) 2 % (0-10); HEMATOCRIT 27 % (35-52); HEMOGLOBIN 8.7 G/DL (11.5-16.0); LYMPHOCYTES # (AUTO) 0.8 X 10^3 (1.0-4.0); LYMPHOCYTES % (AUTO) 6 % (12-44); MEAN CORPUSCULAR HEMOGLOBIN 26 PG (25-34); MEAN CORPUSCULAR HGB CONC 32 G/DL (32-36); MEAN CORPUSCULAR VOLUME 82 FL (80-99); MEAN PLATELET VOLUME 8.2 FL (7.4-10.4); MONOCYTES # (AUTO) 1.5 X 10^3 (0.0-1.0); MONOCYTES % (AUTO) 11 % (0-12); NEUTROPHILS # (AUTO) 10.8 X 10^3 (1.8-7.8); NEUTROPHILS % (AUTO) 81 % (42-75); PLATELET COUNT 373 10^3/uL (130-400); RED BLOOD COUNT 3.33 10^6/uL (4.35-5.85); RED CELL DISTRIBUTION WIDTH 19.4 % (10.0-14.5); WHITE BLOOD COUNT 13.3 10^3/uL (4.3-11.0)
[2018-03-09] MEDS: NYSTATIN ORAL SUSP 5 ML UDC PO SCH ×3 (06:43→18:31)
[2018-03-09] MEDS: metFORMIN 500 MG (GLUCOPHAGE) TAB PO SCH ×2 (06:44→17:24)
[2018-03-09] MEDS: LACTOBACILLUS Acidoph/Bulgar (LACTINEX/FLORANEX) TAB PO SCH ×2 (06:44→17:24)
[2018-03-09] MEDS: GABAPENTIN 600 MG (NEURONTIN) TAB PO SCH ×3 (06:44→18:33)
[2018-03-09] MEDS: LEVOTHYROXINE 100 MCG (LEVOTHROID) TAB PO SCH (06:44)
[2018-03-09] MEDS: FERROUS SULF 325 MG (IRON) TAB PO SCH ×3 (06:44→17:24)
[2018-03-09] MEDS: PANTOPRAZOLE 40 MG (PROTONIX) TAB PO SCH (06:49)
[2018-03-09] MEDS: MEROPENEM 500 MG in NS (IVPB) 100 ML IV SCH ×3 (06:54→18:32)
[2018-03-09] MEDS: inSUlin ASPART (NovoLOG) 1 UNIT/0.01 ML (CHARGE PER UNIT) SC SCH ×4 (06:54→21:51)
[2018-03-09 08:00] VITALS: BP 130/73
[2018-03-09] MEDS: buPROPion 100 MG (WELLBUTRIN) TAB PO SCH ×3 (08:48→22:01)
[2018-03-09] MEDS: LINAGLIPTIN (TRADJENTA) 5 MG TABLET PO SCH (08:49)
[2018-03-09] MEDS: fluCOnazole (DIFLUCAN) 100 MG TAB PO SCH (08:49)
[2018-03-09] MEDS: oxyCODONE ER 10 MG (OxyCONTIN CR) TAB PO SCH ×2 (08:50→22:01)
[2018-03-09] MEDS: ASPIRIN E.C. 81 MG (ECOTRIN) TAB PO SCH (08:51)
[2018-03-09] MEDS: busPIRone 15 MG (BUSPAR) TABLET PO SCH ×2 (08:52→22:02)
[2018-03-09] MEDS: SENNA W/DOCUSATE (SENOKOT S) TABLET PO SCH ×2 (08:52→22:01)
[2018-03-09] MEDS: NS IV 1000 ML 1,000 ML IV SCH ×2 (09:33→18:32)
[2018-03-09 12:00] VITALS: BP 124/65
[2018-03-09] MEDS: DAKIN'S 1/4 STRENGTH (0.125%) 473 ML BTL TOP SCH ×2 (13:00→19:49)
[2018-03-09] MEDS: IRON SUCROSE 200 MG/10 ML (VENOFER) VIAL IV SCH (14:19)
[2018-03-09] MEDS: ALBUMIN 25% 25 GM/100 ML 100 ML IV SCH ×2 (14:20→22:02)
--- NOTE | 2018-03-09 14:59 | Physical Therapy Evaluation ---
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 Reviewed History: Yes Social History Home: Single Level Current Living Status: Spouse Entry Into Home: Ramp Prior/Core FIM Prior Level of Function Functional Simpson Measure 0=Not Assessed/NA 4=Minimal Assistance 1=Total Assistance 5=Supervision or Setup 2=Maximal Assistance 6=Modified Simpson 3=Moderate Assistance 7=Complete Simpson Pt reports she has a hospital bed at home; reports she typically is able to perform bed mobility without assist but her or daughter assist as needed ; she reprots she performs a squat pivot transfer bed to from chair with assist from family. She has a lift recliner and a wheelchair. She is able to propel herself in the wheelchair. PT Evaluation-Current Subjective Pt apprehensive about getting up as she reports her would will drain and be very messy. She reports that she prefers not to get up today but said she will consider getting up to the chair tomorrow. Pt's spouse reported he will bring her roho up for her to use in the chair. Pain Numeric Pain Scale: 0-No Pain Location: No Pain Reported Objective Patient Orientation: Person, Place, Time, Situation Problem Solving: Good ROM/Strength ROM Lower Extremities Right LE is WFL Strength Lower Extremities Right LE strength is grossly 3+/5 Integumentary/Posture Integumentary Refer to nursing notes; non healing ulcer left hip area. Bowel Incontinence: Yes (colostomy) Bladder Incontinence: Melchor Cath Posture not observed Neuromuscular (Tone, Coordination, Reflexes) functional Sensory Vision: Functional Hearing: Functional Hand Dominance: Right Sensation Left Lower Extremity: Intact Transfers Functional Simpson Measure 0=Not Assessed/NA 4=Minimal Assistance 1=Total Assistance 5=Supervision or Setup 2=Maximal Assistance 6=Modified Simpson 3=Moderate Assistance 7=Complete Simpson Bed mobility not assessed this date. Gait Mode of Locomotion: Wheelchair Anticipated Mode of Locomotion: Wheelchair Wheelchair Training not assessed this date. Balance Special Test Comments not assessed this date Treatment Pt agreed to perform bed exercises only. to include: AP, QS, HS, SAQ, GS, hip abduct x 10 each Assessment/Needs Pt presents with non healing ulcer left hip area; also being treated for UTI and sepsis. She will benefit from upright activity and transfers to allow her to maintain her functional strength and positional changes for optimal wellbeing of skin integrity, lungs and circulation. We will work on functional transfers to allow her out of bed time as she tolerates. Rehab Potential: Guarded PT Teacher Hearing Impaired Goals Teacher Hearing Impaired Goals PT Teacher Hearing Impaired Goals Time Frame: Mar 16, 2018 Transfers (B,C,W/C) (FIM): 4 Wheelchair (FIM): 5 PT Plan Problem List Problem List: Activity Tolerance, Functional Strength, Safety, Balance, Transfer, Bed Mobility Treatment/Plan Treatment Plan: Continue Plan of Care Treatment Plan: Bed Mobility, Education, Functional Activity Lisa, Functional Strength, Safety, Therapeutic Exercise, Transfers Treatment Duration: Mar 16, 2018 Frequency: 6 times per week Estimated Hrs Per Day: .5 hour per day Patient and/or Family Agrees t: Yes Safety Risks/Education Patient Education: Safety Issues Teaching Recipient: Patient, Family Teaching Methods: Discussion Response to Teaching: Reinforcement Needed Time/GCodes Time In: 1340 Time Out: 1400 Total Billed Treatment Time: 20 Total Billed Treatment visit EVM 20 BLADIMIR MASSEY PT Mar 09, 2018 14:59
[2018-03-09 15:31] VITALS: BP 137/86
[2018-03-09] MEDS: RIVAROXABAN 20 MG TABLET (XARELTO) PO SCH (17:24)
--- NOTE | 2018-03-09 18:27 | Progress Note (SOAP) ---
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 Pain in mouth is better. Had fever last night. C/O right leg swelling. Focused Exam Lactate Level 03/06/18 21:24: Lactic Acid Level 2.88*H 03/06/18 23:25: Lactic Acid Level 1.57 03/07/18 05:20: Lactic Acid Level 1.26 Objective Exam Vital Signs Date Time Temp Pulse Resp B/P (MAP) Pulse Ox O2 Delivery O2 Flow Rate FiO2 03/09/18 15:31 98.3 101 18 137/86 (103) 96 Room Air 03/09/18 13:25 98.3 03/09/18 13:00 102 03/09/18 12:00 97.4 101 20 124/65 (84) 98 Room Air 03/09/18 09:30 96.5 03/09/18 08:00 98.3 109 20 130/73 (92) 95 Room Air 03/09/18 07:01 105 03/09/18 04:00 96.5 106 18 122/66 (84) 95 Room Air 03/09/18 01:00 86 03/09/18 00:09 98.7 101 18 115/77 (90) 96 Room Air 03/08/18 21:20 99.0 03/08/18 21:15 99.0 03/08/18 20:45 101.2 03/08/18 19:45 101.3 118 16 149/84 96 Room Air 03/08/18 19:15 101.3 118 16 149/84 (105) 96 Room Air 03/08/18 19:00 118 I & O 03/09/18 07:00 Intake Total 3100 ml Output Total 1350 ml Balance 1750 ml Capillary Refill : Less Than 3 Seconds General Appearance: No Apparent Distress Neck: Supple Respiratory: Lungs Clear Cardiovascular: Regular Rate, Rhythm Gastrointestinal: normal bowel sounds, non tender, soft Extremity: Pedal Edema (right leg) Neurologic/Psychiatric: Alert, Oriented x3 Skin: Other (left hip wound with eschar and dressing) Results Lab Laboratory Tests 03/08/18 20:53: Glucometer 195H 03/09/18 06:05: Glucometer 130H 03/09/18 06:37: White Blood Count 13.3H, Red Blood Count 3.33L, Hemoglobin 8.7L, Hematocrit 27L , Mean Corpuscular Volume 82, Mean Corpuscular Hemoglobin 26, Mean Corpuscular Hemoglobin Concent 32, Red Cell Distribution Width 19.4H, Platelet Count 373, Mean Platelet Volume 8.2, Neutrophils (%) (Auto) 81H, Lymphocytes (%) (Auto) 6L , Monocytes (%) (Auto) 11, Eosinophils (%) (Auto) 2, Basophils (%) (Auto) 0, Neutrophils # (Auto) 10.8H, Lymphocytes # (Auto) 0.8L, Monocytes # (Auto) 1.5H, Eosinophils # (Auto) 0.2, Basophils # (Auto) 0.0 03/09/18 11:02: Glucometer 159H 03/09/18 12:26: Lab Scanned Report Transfusion Reaction Form 03/09/18 15:33: Glucometer 128H Microbiology 03/06/18 Blood Culture - Preliminary, Resulted No growth 03/06/18 Urine Culture - Final, Complete Yeast species Assessment/Plan Assessment/Plan Assess & Plan/Chief Complaint 1. Acute on Chronic Anemia--repeat H/H in Am 2. 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 DM II--continue SSI and metformin 4. Stomatitis--improving 5. Edema/Hypoalbuminemia--Albumin Clinical Quality Measures Admission Status Admission Dx 1. Acute on Chronic Anemia--admit and transfuse and monitor H/H 2. Left leg amputation with nonhealing wound--IV antibiotics and consult wound care 3. Acute UTI--cover with IV antibiotics and await culture results 4. Diabetes mellitus--start accuchecks with SSI A DVT/VTE Risk/Contraindication: Risk Factor Score Per Nursin RFS Level Per Nursing on Admit: 4+=Very High HANNAH STYLES DO Mar 09, 2018 6:27 pm
[2018-03-09 20:00] VITALS: BP 152/74
[2018-03-09] MEDS: SIMvastatin 20 MG (ZOCOR) TAB PO SCH (22:01)
[2018-03-09] MEDS: NORTRIPTYLINE 25 MG (PAMELOR) CAP PO SCH (22:02)
[2018-03-09] MEDS: ONDANSETRON 4 MG/2 ML (SDV) Z0FRAN IV PRN (22:15)
[2018-03-10] VITALS: BP 135/69
[2018-03-10] MEDS: NYSTATIN ORAL SUSP 5 ML UDC PO SCH ×4 (00:07→18:07)
[2018-03-10] MEDS: GABAPENTIN 600 MG (NEURONTIN) TAB PO SCH ×4 (00:07→18:07)
[2018-03-10] MEDS: MEROPENEM 500 MG in NS (IVPB) 100 ML IV SCH ×4 (00:07→18:41)
[2018-03-10] MEDS: VANCOMYCIN 1500 MG/NS 500 ML IVPB IV SCH ×4 (01:47→13:46)
[2018-03-10] MEDS: NS IV 1000 ML 1,000 ML IV SCH ×4 (01:48→22:37)
[2018-03-10 04:00] VITALS: BP 161/80
[2018-03-10 05:54] LABS: BASOPHILS % (AUTO) 0 % (0-10); EOSINOPHILS # (AUTO) 0.4 10^3/uL (0.0-0.3); EOSINOPHILS % (AUTO) 3 % (0-10); HEMATOCRIT 26 % (35-52); LYMPHOCYTES # (AUTO) 0.8 X 10^3 (1.0-4.0); MEAN CORPUSCULAR HEMOGLOBIN 26 PG (25-34); MEAN CORPUSCULAR HGB CONC 31 G/DL (32-36); MEAN CORPUSCULAR VOLUME 83 FL (80-99); MEAN PLATELET VOLUME 8.8 FL (7.4-10.4); MONOCYTES # (AUTO) 1.3 X 10^3 (0.0-1.0); MONOCYTES % (AUTO) 12 % (0-12); NEUTROPHILS # (AUTO) 8.9 X 10^3 (1.8-7.8); PLATELET COUNT 362 10^3/uL (130-400); RED BLOOD COUNT 3.06 10^6/uL (4.35-5.85); RED CELL DISTRIBUTION WIDTH 19.7 % (10.0-14.5); WHITE BLOOD COUNT 11.4 10^3/uL (4.3-11.0)
[2018-03-10 05:57] LABS: LYMPHOCYTES % (AUTO) 9 % (12-44); NEUTROPHILS % (AUTO) 76 % (42-75)
[2018-03-10 06:23] LABS: ALANINE AMINOTRANSFERASE 29 U/L (0-55); ALBUMIN 2.6 GM/DL (3.2-4.5); ALKALINE PHOSPHATASE 131 U/L (40-136); BILIRUBIN,TOTAL 0.4 MG/DL (0.1-1.0); BUN/CREATININE RATIO 11; CALCIUM 8.6 MG/DL (8.5-10.1); CARBON DIOXIDE 20 MMOL/L (21-32); CHLORIDE 110 MMOL/L (98-107); GFR ESTIMATED > 60; GLUCOSE 82 MG/DL (70-105); POTASSIUM 3.9 MMOL/L (3.6-5.0); SODIUM 142 MMOL/L (135-145); TOTAL PROTEIN 5.2 GM/DL (6.4-8.2)
[2018-03-10] MEDS: inSUlin ASPART (NovoLOG) 1 UNIT/0.01 ML (CHARGE PER UNIT) SC SCH ×4 (06:26→21:00)
[2018-03-10] MEDS: LEVOTHYROXINE 100 MCG (LEVOTHROID) TAB PO SCH (06:27)
[2018-03-10] MEDS: ALBUMIN 25% 25 GM/100 ML 100 ML IV SCH ×3 (06:27→22:29)
[2018-03-10] MEDS: PANTOPRAZOLE 40 MG (PROTONIX) TAB PO SCH (06:27)
[2018-03-10] MEDS: FERROUS SULF 325 MG (IRON) TAB PO SCH ×3 (06:27→18:07)
[2018-03-10] MEDS: LACTOBACILLUS Acidoph/Bulgar (LACTINEX/FLORANEX) TAB PO SCH ×2 (06:27→18:07)
[2018-03-10] MEDS: metFORMIN 500 MG (GLUCOPHAGE) TAB PO SCH ×2 (06:27→18:07)
[2018-03-10 08:00] VITALS: BP 140/76
[2018-03-10] MEDS: fluCOnazole (DIFLUCAN) 100 MG TAB PO SCH (08:29)
[2018-03-10] MEDS: oxyCODONE ER 10 MG (OxyCONTIN CR) TAB PO SCH ×2 (08:29→22:28)
[2018-03-10] MEDS: LINAGLIPTIN (TRADJENTA) 5 MG TABLET PO SCH (08:29)
[2018-03-10] MEDS: buPROPion 100 MG (WELLBUTRIN) TAB PO SCH ×3 (08:30→22:29)
[2018-03-10] MEDS: ASPIRIN E.C. 81 MG (ECOTRIN) TAB PO SCH (08:30)
[2018-03-10] MEDS: SENNA W/DOCUSATE (SENOKOT S) TABLET PO SCH ×2 (08:30→22:28)
[2018-03-10] MEDS: busPIRone 15 MG (BUSPAR) TABLET PO SCH ×2 (09:13→22:28)
--- NOTE | 2018-03-10 10:18 | Physical Therapy Daily Note ---
PT Daily Note-Current Subjective Patient agrees to PT. Pain Numeric Pain Scale: 5-Moderate Pain Location: Left Location Body Site: Back Pain Description: Pressure Mental Status Patient Orientation: Normal For Age Attachments: Melchor Catheter, IV Transfers Functional [place] Measure 0=Not Assessed/NA 4=Minimal Assistance 1=Total Assistance 5=Supervision or Setup 2=Maximal Assistance 6=Modified [place] 3=Moderate Assistance 7=Complete IndependenceIRFPAI Quality Coding Scale 6 Independent with activity with or without an assistive device 5 Patient requires set up or clean up by helper. Patient completes activity by themselves 4 Supervision or touching assist (CGA). [place] provide cues , steadying assist 3 The helper provides less than half the effort to complete the activity 2 The helper provides more than half the effort to complete the activity 1 Dependent. The helper does all the effort to complete an activity 7 Patient refused to complete or attempt activity 9 The patient did not perform the activity before the current illness or injury 88 Not attempted due to Medical conditions or safety concerns Transfers (B, C, W/C) (FIM): 2 Scootin Rollin Attempted to perform supine to sit, however, patient resisted and declined during attempt due to pain and drainage of left hip. Weight Bearing Right Lower Extremity: Right Full Weight Bearing Exercises Supine Ex: Ankle pumps, Quad Set, Heel Slides, Straight leg raise Supine Reps: 20 (AAROM right LE/trapeze placed on bed with patient performing pull ups to improve upper body strength) Assessment Patient is very edematous and weak. Patient requires much encouragement to participate with PT. PT Tax Manager Cpa Goals Residential Goals PT Residential Goals Time Frame: Mar 16, 2018 Transfers (B,C,W/C) (FIM): 4 Wheelchair (FIM): 5 PT Plan Treatment/Plan Treatment Plan: Continue Plan of Care Treatment Plan: Bed Mobility, Education, Functional Activity Lisa, Functional Strength, Safety, Therapeutic Exercise, Transfers Treatment Duration: Mar 16, 2018 Frequency: 6 times per week Estimated Hrs Per Day: .5 hour per day Patient and/or Family Agrees t: Yes Time/GCodes Time In: 931 Time Out: 947 Total Billed Treatment Time: 16 Total Billed Treatment 1 visit EX 16 min WHIT BLACK PT Mar 10, 2018 10:18
[2018-03-10] MEDS: DAKIN'S 1/4 STRENGTH (0.125%) 473 ML BTL TOP SCH (10:45)
[2018-03-10 12:00] VITALS: BP 162/82
[2018-03-10] MEDS ORDERED: TROUGH ORDER-PHARMACY XX NR (12:30)
--- NOTE | 2018-03-10 12:40 | Progress Note (SOAP) ---
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 No fever overnight. Talked to [facility] today and is scheduled for surgery with plastics for wound repair/closure on March 30. Objective Exam Vital Signs Date Time Temp Pulse Resp B/P (MAP) Pulse Ox O2 Delivery O2 Flow Rate FiO2 03/10/18 08:00 97.4 113 20 140/76 (97) 94 Room Air 03/10/18 07:00 115 03/10/18 04:00 99.4 103 16 161/80 (107) 96 Room Air 03/10/18 01:00 101 03/10/18 00:00 98.8 106 20 135/69 (91) 93 Room Air 03/09/18 20:00 97.3 109 16 152/74 (100) 96 Room Air 03/09/18 19:00 101 03/09/18 15:31 98.3 101 18 137/86 (103) 96 Room Air 03/09/18 13:25 98.3 03/09/18 13:00 102 I & O 03/10/18 07:00 Intake Total 3155 ml Output Total 1475 ml Balance 1680 ml Capillary Refill : Less Than 3 Seconds General Appearance: No Apparent Distress Neck: Supple Respiratory: Lungs Clear Cardiovascular: Regular Rate, Rhythm Extremity: Non Tender, No Calf Tenderness, Pedal Edema (right leg) Neurologic/Psychiatric: Alert, Oriented x3 Results Lab Laboratory Tests 03/09/18 15:33: Glucometer 128H 03/09/18 21:48: Glucometer 163H 03/10/18 05:30: White Blood Count 11.4H, Red Blood Count 3.06L, Hemoglobin 8.0L, Hematocrit 26L , Mean Corpuscular Volume 83, Mean Corpuscular Hemoglobin 26, Mean Corpuscular Hemoglobin Concent 31L, Red Cell Distribution Width 19.7H, Platelet Count 362, Mean Platelet Volume 8.8, Neutrophils (%) (Auto) 76H, Lymphocytes (%) (Auto) 9L , Monocytes (%) (Auto) 12, Eosinophils (%) (Auto) 3, Basophils (%) (Auto) 0, Neutrophils # (Auto) 8.9H, Lymphocytes # (Auto) 0.8L, Monocytes # (Auto) 1.3H, Eosinophils # (Auto) 0.4H, Basophils # (Auto) 0.0, Sodium Level 142, Potassium Level 3.9, Chloride Level 110H, Carbon Dioxide Level 20L, Anion Gap 12, Blood Urea Nitrogen 8, Creatinine 0.70, Estimat Glomerular Filtration Rate > 60, BUN/ Creatinine Ratio 11, Glucose Level 82, Calcium Level 8.6, Total Bilirubin 0.4, Aspartate Amino Transf (AST/SGOT) 32, Alanine Aminotransferase (ALT/SGPT) 29, Alkaline Phosphatase 131, Total Protein 5.2L, Albumin 2.6L 03/10/18 05:42: Glucometer 92 03/10/18 11:44: Glucometer 127H Microbiology 03/06/18 Blood Culture - Preliminary, Resulted No growth 03/06/18 Urine Culture - Final, Complete Yeast species Assessment/Plan Assessment/Plan Assess & Plan/Chief Complaint 1. Acute on Chronic Anemia--repeat H/H in Am, started iron yesterday 2. 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 DM II--continue SSI and metformin 4. Stomatitis--improving 5. Edema/Hypoalbuminemia--continue Albumin Clinical Quality Measures Admission Status Admission Dx 1. Acute on Chronic Anemia--admit and transfuse and monitor H/H 2. Left leg amputation with nonhealing wound--IV antibiotics and consult wound care 3. Acute UTI--cover with IV antibiotics and await culture results 4. Diabetes mellitus--start accuchecks with SSI A DVT/VTE Risk/Contraindication: Risk Factor Score Per Nursin RFS Level Per Nursing on Admit: 4+=Very High HANNAH STYLES DO Mar 10, 2018 12:40 pm
[2018-03-10 15:47] VITALS: BP 140/76
[2018-03-10] MEDS: RIVAROXABAN 20 MG TABLET (XARELTO) PO SCH (18:06)
[2018-03-10 20:00] VITALS: BP 142/71
[2018-03-10] MEDS: NORTRIPTYLINE 25 MG (PAMELOR) CAP PO SCH (22:28)
[2018-03-10] MEDS: SIMvastatin 20 MG (ZOCOR) TAB PO SCH (22:28)
[2018-03-11] VITALS: BP 142/71
[2018-03-11] MEDS: NYSTATIN ORAL SUSP 5 ML UDC PO SCH ×4 (00:47→18:29)
[2018-03-11] MEDS: GABAPENTIN 600 MG (NEURONTIN) TAB PO SCH ×4 (00:48→18:29)
[2018-03-11] MEDS: MEROPENEM 500 MG in NS (IVPB) 100 ML IV SCH ×4 (00:48→18:23)
[2018-03-11 04:11] VITALS: BP 157/81
[2018-03-11] MEDS: LEVOTHYROXINE 100 MCG (LEVOTHROID) TAB PO SCH (05:45)
[2018-03-11 05:54] LABS: BASOPHILS % (AUTO) 0 % (0-10); EOSINOPHILS # (AUTO) 0.3 10^3/uL (0.0-0.3); EOSINOPHILS % (AUTO) 3 % (0-10); HEMATOCRIT 26 % (35-52); MEAN CORPUSCULAR HEMOGLOBIN 27 PG (25-34); MEAN CORPUSCULAR HGB CONC 31 G/DL (32-36); MEAN CORPUSCULAR VOLUME 85 FL (80-99); MEAN PLATELET VOLUME 8.7 FL (7.4-10.4); MONOCYTES # (AUTO) 1.3 X 10^3 (0.0-1.0); NEUTROPHILS # (AUTO) 8.9 X 10^3 (1.8-7.8); NEUTROPHILS % (AUTO) 78 % (42-75); PLATELET COUNT 331 10^3/uL (130-400); RED BLOOD COUNT 3.01 10^6/uL (4.35-5.85); RED CELL DISTRIBUTION WIDTH 19.4 % (10.0-14.5); WHITE BLOOD COUNT 11.4 10^3/uL (4.3-11.0)
[2018-03-11] MEDS: ALBUMIN 25% 25 GM/100 ML 100 ML IV SCH ×3 (05:55→22:04)
[2018-03-11] MEDS: inSUlin ASPART (NovoLOG) 1 UNIT/0.01 ML (CHARGE PER UNIT) SC SCH ×4 (05:56→22:18)
[2018-03-11 05:57] LABS: LYMPHOCYTES % (AUTO) 9 % (12-44); MONOCYTES % (AUTO) 10 % (0-12)
[2018-03-11 06:20] LABS: ALANINE AMINOTRANSFERASE 40 U/L (0-55); ALKALINE PHOSPHATASE 140 U/L (40-136); BILIRUBIN,TOTAL 0.5 MG/DL (0.1-1.0); BUN/CREATININE RATIO 11; CALCIUM 8.7 MG/DL (8.5-10.1); CARBON DIOXIDE 17 MMOL/L (21-32); CHLORIDE 111 MMOL/L (98-107); CREATININE SERUM 0.74 MG/DL (0.60-1.30); GFR ESTIMATED > 60; GLUCOSE 99 MG/DL (70-105); POTASSIUM 4.1 MMOL/L (3.6-5.0); SODIUM 141 MMOL/L (135-145); TOTAL PROTEIN 5.2 GM/DL (6.4-8.2)
[2018-03-11] MEDS: LACTOBACILLUS Acidoph/Bulgar (LACTINEX/FLORANEX) TAB PO SCH ×2 (06:44→18:29)
[2018-03-11] MEDS: FERROUS SULF 325 MG (IRON) TAB PO SCH ×3 (06:45→18:37)
[2018-03-11] MEDS: PANTOPRAZOLE 40 MG (PROTONIX) TAB PO SCH (06:45)
[2018-03-11] MEDS: metFORMIN 500 MG (GLUCOPHAGE) TAB PO SCH ×2 (06:45→18:29)
[2018-03-11 08:00] VITALS: BP 149/85
[2018-03-11] MEDS: fluCOnazole (DIFLUCAN) 100 MG TAB PO SCH (09:11)
[2018-03-11] MEDS: busPIRone 15 MG (BUSPAR) TABLET PO SCH ×2 (09:11→20:49)
[2018-03-11] MEDS: buPROPion 100 MG (WELLBUTRIN) TAB PO SCH ×3 (09:11→20:49)
[2018-03-11] MEDS: ASPIRIN E.C. 81 MG (ECOTRIN) TAB PO SCH (09:11)
[2018-03-11] MEDS: SENNA W/DOCUSATE (SENOKOT S) TABLET PO SCH ×2 (09:11→20:49)
[2018-03-11] MEDS: LINAGLIPTIN (TRADJENTA) 5 MG TABLET PO SCH (09:11)
[2018-03-11] MEDS: oxyCODONE ER 10 MG (OxyCONTIN CR) TAB PO SCH ×2 (09:12→20:49)
[2018-03-11] MEDS: NS IV 1000 ML 1,000 ML IV SCH ×2 (09:12→10:56)
[2018-03-11] MEDS: IRON SUCROSE 200 MG/10 ML (VENOFER) VIAL IV SCH (11:15)
--- NOTE | 2018-03-11 11:18 | Physical Therapy Daily Note ---
PT Daily Note-Current Subjective Patient is very agreeable to participate with PT. Pain Numeric Pain Scale: 5-Moderate Pain Location: Left, Soft Tissue Location Body Site: Back Pain Description: Pressure Mental Status Patient Orientation: Normal For Age Attachments: Melchor Catheter, IV Transfers Functional [place] Measure 0=Not Assessed/NA 4=Minimal Assistance 1=Total Assistance 5=Supervision or Setup 2=Maximal Assistance 6=Modified [place] 3=Moderate Assistance 7=Complete IndependenceIRFPAI Quality Coding Scale 6 Independent with activity with or without an assistive device 5 Patient requires set up or clean up by helper. Patient completes activity by themselves 4 Supervision or touching assist (CGA). [place] provide cues , steadying assist 3 The helper provides less than half the effort to complete the activity 2 The helper provides more than half the effort to complete the activity 1 Dependent. The helper does all the effort to complete an activity 7 Patient refused to complete or attempt activity 9 The patient did not perform the activity before the current illness or injury 88 Not attempted due to Medical conditions or safety concerns Transfers (B, C, W/C) (FIM): 1 Scootin Supine to/from Sit: 1 Sit to/from Stand: 1 Bed to/from Chair: 1 sit to stand and SPT bed to w/c dependent assist x 2 Weight Bearing Right Lower Extremity: Right Full Weight Bearing Assessment patient sat EOB x 10 minutes and performed sit to stand transfers x 5 sets to increase strength and mobility. Patient is up in recliner with needs met. PT Miller Supervisor Goals Senior Living Goals PT Miller Supervisor Goals Time Frame: Mar 16, 2018 Transfers (B,C,W/C) (FIM): 4 Wheelchair (FIM): 5 PT Plan Treatment/Plan Treatment Plan: Continue Plan of Care Treatment Plan: Bed Mobility, Education, Functional Activity Lisa, Functional Strength, Safety, Therapeutic Exercise, Transfers Treatment Duration: Mar 16, 2018 Frequency: 6 times per week Estimated Hrs Per Day: .5 hour per day Patient and/or Family Agrees t: Yes Time/GCodes Time In: 1026 Time Out: 1049 Total Billed Treatment Time: 23 Total Billed Treatment 1 visit FA x 2 23 min WHIT BLACK PT Mar 11, 2018 11:18
[2018-03-11 12:00] VITALS: BP 172/76
[2018-03-11] MEDS ORDERED: TROUGH ORDER-PHARMACY XX NR (12:30)
[2018-03-11] MEDS ORDERED: CARVEDILOL 3.125 MG (COREG) TABLET PO NR (12:45)
--- NOTE | 2018-03-11 13:32 | Progress Note (SOAP) ---
Subjective Date Seen by Provider: Mar 11, 2018 Time Seen by Provider: 13:28 Subjective/Events-last exam Fwup acute on chronic anemia requiring transfusion, S/P left leg amputation for chondrosarcoma with nonhealing infected wound--patient states was told MRSA, DMII, Hypertension. According to nursing and SS--home environment per home health is not safe due to inability for someone to be with patient to assist her and even feed her. Objective Exam Vital Signs Date Time Temp Pulse Resp B/P (MAP) Pulse Ox O2 Delivery O2 Flow Rate FiO2 03/11/18 12:00 98.2 101 20 172/76 (108) 93 Room Air 03/11/18 08:00 97.2 101 18 149/85 (106) 94 Room Air 03/11/18 07:06 102 03/11/18 04:11 97.8 103 16 157/81 (106) 93 Room Air 03/11/18 01:00 107 03/11/18 00:00 98.0 101 16 142/71 (94) 95 Room Air 03/10/18 20:00 98.0 101 16 142/71 (94) 95 Room Air 03/10/18 19:00 102 03/10/18 15:47 99.4 108 20 140/76 (97) 96 Room Air I & O 03/11/18 07:00 Intake Total 2690 ml Output Total 875 ml Balance 1815 ml Capillary Refill : Less Than 3 Seconds General Appearance: No Apparent Distress Respiratory: Lungs Clear Cardiovascular: Regular Rate, Rhythm Gastrointestinal: normal bowel sounds, non tender, soft Neurologic/Psychiatric: Alert, Oriented x3 Skin: Other (left hip wound with dressing in place) Results Lab Laboratory Tests 03/10/18 15:52: Glucometer 142H 03/11/18 05:19: Glucometer 104 03/11/18 05:45: White Blood Count 11.4H, Red Blood Count 3.01L, Hemoglobin 8.0L, Hematocrit 26L , Mean Corpuscular Volume 85, Mean Corpuscular Hemoglobin 27, Mean Corpuscular Hemoglobin Concent 31L, Red Cell Distribution Width 19.4H, Platelet Count 331, Mean Platelet Volume 8.7, Neutrophils (%) (Auto) 78H, Lymphocytes (%) (Auto) 9L , Monocytes (%) (Auto) 10, Eosinophils (%) (Auto) 3, Basophils (%) (Auto) 0, Neutrophils # (Auto) 8.9H, Lymphocytes # (Auto) 1.0, Monocytes # (Auto) 1.3H, Eosinophils # (Auto) 0.3, Basophils # (Auto) 0.0, Sodium Level 141, Potassium Level 4.1, Chloride Level 111H, Carbon Dioxide Level 17L, Anion Gap 13, Blood Urea Nitrogen 8, Creatinine 0.74, Estimat Glomerular Filtration Rate > 60, BUN/ Creatinine Ratio 11, Glucose Level 99, Calcium Level 8.7, Total Bilirubin 0.5, Aspartate Amino Transf (AST/SGOT) 74H, Alanine Aminotransferase (ALT/SGPT) 40, Alkaline Phosphatase 140H, Total Protein 5.2L, Albumin 3.0L 03/11/18 10:49: Glucometer 134H 03/11/18 13:00: Microbiology 03/06/18 Blood Culture - Preliminary, Resulted No growth 03/06/18 Urine Culture - Final, Complete Yeast species Assessment/Plan Assessment/Plan Assess & Plan/Chief Complaint 1. Acute on Chronic Anemia--repeat H/H in Am and transfuse if needed, continue IV iron 2. 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 DM II--continue SSI and metformin 4. Stomatitis--improving 5. Edema/Hypoalbuminemia--continue Albumin through AM then DC Clinical Quality Measures Admission Status Admission Dx 1. Acute on Chronic Anemia--admit and transfuse and monitor H/H 2. Left leg amputation with nonhealing wound--IV antibiotics and consult wound care 3. Acute UTI--cover with IV antibiotics and await culture results 4. Diabetes mellitus--start accuchecks with SSI A DVT/VTE Risk/Contraindication: Risk Factor Score Per Nursin RFS Level Per Nursing on Admit: 4+=Very High HANNAH STYLES DO Mar 11, 2018 1:32 pm
[2018-03-11] MEDS: VANCOMYCIN 1500 MG/NS 500 ML IVPB IV SCH ×2 (14:27)
[2018-03-11 16:30] VITALS: BP 157/83
[2018-03-11] MEDS: RIVAROXABAN 20 MG TABLET (XARELTO) PO SCH (18:29)
[2018-03-11] MEDS: ONDANSETRON 4 MG (ZOFRAN) ORAL DISSOLVE TAB PO PRN (18:33)
[2018-03-11 20:00] VITALS: BP 160/81
[2018-03-11] MEDS: NORTRIPTYLINE 25 MG (PAMELOR) CAP PO SCH (20:49)
[2018-03-11] MEDS: CARVEDILOL 3.125 MG (COREG) TABLET PO SCH (20:49)
[2018-03-11] MEDS: SIMvastatin 20 MG (ZOCOR) TAB PO SCH (20:49)
[2018-03-12] MEDS: GABAPENTIN 600 MG (NEURONTIN) TAB PO SCH ×4 (01:05→17:51)
[2018-03-12] MEDS: NYSTATIN ORAL SUSP 5 ML UDC PO SCH ×4 (01:05→17:51)
[2018-03-12] MEDS: MEROPENEM 500 MG in NS (IVPB) 100 ML IV SCH ×4 (01:06→17:51)
[2018-03-12 04:28] VITALS: BP 172/80
[2018-03-12 05:28] LABS: BASOPHILS % (AUTO) 0 % (0-10); EOSINOPHILS # (AUTO) 0.4 10^3/uL (0.0-0.3); EOSINOPHILS % (AUTO) 3 % (0-10); HEMATOCRIT 26 % (35-52); LYMPHOCYTES # (AUTO) 0.9 X 10^3 (1.0-4.0); LYMPHOCYTES % (AUTO) 9 % (12-44); MEAN CORPUSCULAR HEMOGLOBIN 26 PG (25-34); MEAN CORPUSCULAR HGB CONC 31 G/DL (32-36); MEAN CORPUSCULAR VOLUME 85 FL (80-99); MEAN PLATELET VOLUME 8.5 FL (7.4-10.4); MONOCYTES # (AUTO) 1.4 X 10^3 (0.0-1.0); MONOCYTES % (AUTO) 12 % (0-12); NEUTROPHILS # (AUTO) 8.9 X 10^3 (1.8-7.8); NEUTROPHILS % (AUTO) 76 % (42-75); PLATELET COUNT 354 10^3/uL (130-400); RED BLOOD COUNT 3.09 10^6/uL (4.35-5.85); RED CELL DISTRIBUTION WIDTH 19.6 % (10.0-14.5); WHITE BLOOD COUNT 11.6 10^3/uL (4.3-11.0)
[2018-03-12 05:57] LABS: ALANINE AMINOTRANSFERASE 34 U/L (0-55); ALBUMIN 3.4 GM/DL (3.2-4.5); ALKALINE PHOSPHATASE 123 U/L (40-136); BILIRUBIN,TOTAL 0.6 MG/DL (0.1-1.0); BUN/CREATININE RATIO 12; CALCIUM 8.8 MG/DL (8.5-10.1); CARBON DIOXIDE 20 MMOL/L (21-32); CHLORIDE 110 MMOL/L (98-107); CREATININE SERUM 0.69 MG/DL (0.60-1.30); GFR ESTIMATED > 60; GLUCOSE 86 MG/DL (70-105); POTASSIUM 3.8 MMOL/L (3.6-5.0); SODIUM 141 MMOL/L (135-145); TOTAL PROTEIN 4.9 GM/DL (6.4-8.2)
[2018-03-12] MEDS: ALBUMIN 25% 25 GM/100 ML 100 ML IV SCH (06:29)
[2018-03-12] MEDS: LACTOBACILLUS Acidoph/Bulgar (LACTINEX/FLORANEX) TAB PO SCH ×2 (06:30→17:51)
[2018-03-12] MEDS: PANTOPRAZOLE 40 MG (PROTONIX) TAB PO SCH (06:30)
[2018-03-12] MEDS: metFORMIN 500 MG (GLUCOPHAGE) TAB PO SCH ×2 (06:30→17:51)
[2018-03-12] MEDS: FERROUS SULF 325 MG (IRON) TAB PO SCH ×3 (06:30→17:51)
[2018-03-12] MEDS: LEVOTHYROXINE 100 MCG (LEVOTHROID) TAB PO SCH (06:30)
[2018-03-12] MEDS: inSUlin ASPART (NovoLOG) 1 UNIT/0.01 ML (CHARGE PER UNIT) SC SCH ×4 (06:31→20:52)
[2018-03-12 08:00] VITALS: BP 152/73
[2018-03-12] MEDS: busPIRone 15 MG (BUSPAR) TABLET PO SCH ×2 (08:58→21:02)
[2018-03-12] MEDS: SENNA W/DOCUSATE (SENOKOT S) TABLET PO SCH ×2 (08:58→21:02)
[2018-03-12] MEDS: ASPIRIN E.C. 81 MG (ECOTRIN) TAB PO SCH (08:58)
[2018-03-12] MEDS: fluCOnazole (DIFLUCAN) 100 MG TAB PO SCH (08:58)
[2018-03-12] MEDS: buPROPion 100 MG (WELLBUTRIN) TAB PO SCH ×3 (08:58→21:02)
[2018-03-12] MEDS: LINAGLIPTIN (TRADJENTA) 5 MG TABLET PO SCH (08:58)
[2018-03-12] MEDS: CARVEDILOL 3.125 MG (COREG) TABLET PO SCH ×2 (08:58→21:02)
[2018-03-12] MEDS: oxyCODONE ER 10 MG (OxyCONTIN CR) TAB PO SCH ×2 (08:58→21:02)
--- NOTE | 2018-03-12 09:34 | Progress Note-Hospitalist ---
Subjective HPI/CC On Admission Date Seen by Provider: Mar 12, 2018 Time Seen by Provider: 08:45 Subjective/Events-last exam Patient is a little constipated today. Affect seems depressed and she is tired of being here. Notes that she has a follow-up appointment with a plastic surgeon March 30. She occasionally feels like she can't take a deep breath. Review of Systems Pulmonary: Other Objective Exam Vital Signs Vital Signs Date Time Temp Pulse Resp B/P (MAP) Pulse Ox O2 Delivery O2 Flow Rate FiO2 03/12/18 08:00 97.5 103 16 152/73 (99) 94 Room Air 03/07/18 21:33 1.00 Capillary Refill : Less Than 3 Seconds General Appearance: Chronically ill Neck: Normal Inspection, Non Tender, Supple Respiratory: Chest Non Tender, Lungs Clear, Normal Breath Sounds, No Accessory Muscle Use, No Respiratory Distress Cardiovascular: No Gallop, No Murmur, Tachycardia Gastrointestinal: Normal Bowel Sounds, Non Tender, Soft Extremity: Other (Left AKA with large area of necrotic skin and packing of an abscess cavity) Neurologic/Psychiatric: Alert, Oriented x3, Depressed Affect Results/Procedures Lab Laboratory Tests 03/12/18 05:15 Patient resulted labs reviewed. Assessment/Plan Assessment and Plan Assess & Plan/Chief Complaint Chondrosarcoma of the left leg status post AKA with nonhealing ulcerations with MRSA, Dr. Ojeda also following Morbid obesity Indwelling Melchor catheter secondary to inability to mobilize with yeast colonization-on Diflucan Type II diabetes on sliding scale insulin and metformin Anemia with a hemoglobin stable at 8.0 on Venofer Depression on Pamelor Wellbutrin and BuSpar Clinical Quality Measures DVT/VTE Risk/Contraindication: Risk Factor Score Per Nursin RFS Level Per Nursing on Admit: 4+=Very High HIRAM CLEVELAND MD Mar 12, 2018 09:34
[2018-03-12 12:00] VITALS: BP 153/76
--- NOTE | 2018-03-12 12:21 | Physical Therapy Daily Note ---
PT Daily Note-Current Subjective Patient in bed pre tx, agrees to PT, no complaints of pain at rest. Appearance Patient in bed post tx with nurse call, phone, tray, all needs met. Mental Status Patient Orientation: Person, Place, Situation Attachments: Melchor Catheter Transfers Functional [place] Measure 0=Not Assessed/NA 4=Minimal Assistance 1=Total Assistance 5=Supervision or Setup 2=Maximal Assistance 6=Modified [place] 3=Moderate Assistance 7=Complete IndependenceIRFPAI Quality Coding Scale 6 Independent with activity with or without an assistive device 5 Patient requires set up or clean up by helper. Patient completes activity by themselves 4 Supervision or touching assist (CGA). [place] provide cues , steadying assist 3 The helper provides less than half the effort to complete the activity 2 The helper provides more than half the effort to complete the activity 1 Dependent. The helper does all the effort to complete an activity 7 Patient refused to complete or attempt activity 9 The patient did not perform the activity before the current illness or injury 88 Not attempted due to Medical conditions or safety concerns Transfers (B, C, W/C) (FIM): 1 Scootin Rollin Supine to/from Sit: 1 Sit to/from Stand: 1 Bed to/from Chair: 1 Patient was transferred to chair with dependent stand pivot transfer. She could not get positioned right in the wheelchair so she was transferred back to bed. Weight Bearing Right Lower Extremity: Right Full Weight Bearing Treatments bed mobility and transfers. Assessment Current Status: Poor Progress no change in mobility PT Shelter Goals Shelter Goals PT Shelter Goals Time Frame: Mar 16, 2018 Transfers (B,C,W/C) (FIM): 4 Wheelchair (FIM): 5 PT Plan Problem List Problem List: Activity Tolerance, Functional Strength, Safety, Balance, Transfer, Bed Mobility, ROM Treatment/Plan Treatment Plan: Continue Plan of Care Treatment Plan: Bed Mobility, Education, Functional Activity Lisa, Functional Strength, Safety, Therapeutic Exercise, Transfers Treatment Duration: Mar 16, 2018 Frequency: 6 times per week Estimated Hrs Per Day: .5 hour per day Patient and/or Family Agrees t: Yes Safety Risks/Education Patient Education: Transfer Techniques, Correct Positioning, Safety Issues Teaching Recipient: Patient Teaching Methods: Demonstration, Discussion Response to Teaching: Reinforcement Needed Time/GCodes Time In: 1150 Time Out: 1205 Total Billed Treatment Time: 15 Total Billed Treatment 1 visit FA KARINA LOVE PT Mar 12, 2018 12:21
[2018-03-12] MEDS: VANCOMYCIN 1500 MG/NS 500 ML IVPB IV SCH ×2 (14:55)
[2018-03-12 16:20] VITALS: BP 165/82
[2018-03-12] MEDS: RIVAROXABAN 20 MG TABLET (XARELTO) PO SCH (17:51)
[2018-03-12 20:42] VITALS: BP 171/87
[2018-03-12] MEDS: SIMvastatin 20 MG (ZOCOR) TAB PO SCH (21:02)
[2018-03-12] MEDS: NORTRIPTYLINE 25 MG (PAMELOR) CAP PO SCH (21:02)
[2018-03-13] MEDS: GABAPENTIN 600 MG (NEURONTIN) TAB PO SCH ×5 (00:01→23:20)
[2018-03-13] MEDS: MEROPENEM 500 MG in NS (IVPB) 100 ML IV SCH ×5 (00:01→23:20)
[2018-03-13] MEDS: NYSTATIN ORAL SUSP 5 ML UDC PO SCH ×5 (00:03→23:20)
[2018-03-13 00:31] VITALS: BP 143/78
[2018-03-13 04:30] VITALS: BP 143/78
[2018-03-13] MEDS: metFORMIN 500 MG (GLUCOPHAGE) TAB PO SCH ×2 (06:32→17:24)
[2018-03-13] MEDS: LACTOBACILLUS Acidoph/Bulgar (LACTINEX/FLORANEX) TAB PO SCH ×2 (06:32→17:23)
[2018-03-13] MEDS: FERROUS SULF 325 MG (IRON) TAB PO SCH ×3 (06:33→17:24)
[2018-03-13] MEDS: inSUlin ASPART (NovoLOG) 1 UNIT/0.01 ML (CHARGE PER UNIT) SC SCH ×4 (06:33→21:01)
[2018-03-13] MEDS: PANTOPRAZOLE 40 MG (PROTONIX) TAB PO SCH (06:33)
[2018-03-13] MEDS: LEVOTHYROXINE 100 MCG (LEVOTHROID) TAB PO SCH (06:33)
[2018-03-13 08:00] VITALS: BP 145/80
[2018-03-13] MEDS ORDERED: IRON SUCROSE INJECTION 200 MG in NS (IVPB) 100 ML IV SCH (09:00)
[2018-03-13] MEDS: SENNA W/DOCUSATE (SENOKOT S) TABLET PO SCH ×2 (10:12→20:31)
[2018-03-13] MEDS: buPROPion 100 MG (WELLBUTRIN) TAB PO SCH ×3 (10:12→20:30)
[2018-03-13] MEDS: ASPIRIN E.C. 81 MG (ECOTRIN) TAB PO SCH (10:13)
[2018-03-13] MEDS: fluCOnazole (DIFLUCAN) 100 MG TAB PO SCH (10:13)
[2018-03-13] MEDS: CARVEDILOL 3.125 MG (COREG) TABLET PO SCH ×2 (10:13→20:31)
[2018-03-13] MEDS: LINAGLIPTIN (TRADJENTA) 5 MG TABLET PO SCH (10:13)
[2018-03-13] MEDS: oxyCODONE ER 10 MG (OxyCONTIN CR) TAB PO SCH ×2 (10:14→20:31)
[2018-03-13] MEDS: busPIRone 15 MG (BUSPAR) TABLET PO SCH ×2 (10:14→20:30)
[2018-03-13 12:00] VITALS: BP 154/72
--- NOTE | 2018-03-13 14:33 | Progress Note-Hospitalist ---
Subjective HPI/CC On Admission Date Seen by Provider: Mar 13, 2018 Time Seen by Provider: 14:30 Subjective/Events-last exam Patient's pain is fairly well controlled. She has no new complaints. Review of Systems Musculoskeletal: leg pain Neurological: Weakness Objective Exam Vital Signs Vital Signs Date Time Temp Pulse Resp B/P (MAP) Pulse Ox O2 Delivery O2 Flow Rate FiO2 03/13/18 13:00 99 03/13/18 12:00 97.6 24 154/72 (99) 93 Room Air 03/07/18 21:33 1.00 Capillary Refill : Less Than 3 SecondsLess Than 3 Seconds General Appearance: Chronically ill HEENT: Normal ENT Inspection Neck: Supple Respiratory: Lungs Clear, Normal Breath Sounds, No Accessory Muscle Use, No Respiratory Distress Cardiovascular: Regular Rate, Rhythm, No Gallop, No Murmur Gastrointestinal: Normal Bowel Sounds, Non Tender, Soft Extremity: Other (Large necrotic mass left hip area with packing) Neurologic/Psychiatric: Alert, Depressed Affect Results/Procedures Lab Patient resulted labs reviewed. 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 Ojeda also following Morbid obesity Indwelling Melchor catheter secondary to inability to mobilize with yeast colonization-on Diflucan Type II diabetes on sliding scale insulin and metformin Anemia with a hemoglobin stable at 8.0 on Venofer Depression on Pamelor Wellbutrin and BuSpar Prognosis poor Clinical Quality Measures DVT/VTE Risk/Contraindication: Risk Factor Score Per Nursin RFS Level Per Nursing on Admit: 4+=Very High HIRAM CLEVELAND MD Mar 13, 2018 2:33 pm
[2018-03-13] MEDS: VANCOMYCIN 1500 MG/NS 500 ML IVPB IV SCH ×2 (15:01)
[2018-03-13 15:55] VITALS: BP 154/80
[2018-03-13] MEDS: RIVAROXABAN 20 MG TABLET (XARELTO) PO SCH (17:23)
[2018-03-13 19:10] VITALS: BP 157/87
[2018-03-13] MEDS: SIMvastatin 20 MG (ZOCOR) TAB PO SCH (20:30)
[2018-03-13] MEDS: NORTRIPTYLINE 25 MG (PAMELOR) CAP PO SCH (20:30)
[2018-03-14] VITALS: BP 135/82
[2018-03-14 04:08] VITALS: BP 152/73
[2018-03-14] MEDS: LEVOTHYROXINE 100 MCG (LEVOTHROID) TAB PO SCH (06:11)
[2018-03-14] MEDS: FERROUS SULF 325 MG (IRON) TAB PO SCH ×3 (06:11→17:54)
[2018-03-14] MEDS: PANTOPRAZOLE 40 MG (PROTONIX) TAB PO SCH (06:11)
[2018-03-14] MEDS: NYSTATIN ORAL SUSP 5 ML UDC PO SCH ×3 (06:11→17:54)
[2018-03-14] MEDS: MEROPENEM 500 MG in NS (IVPB) 100 ML IV SCH ×3 (06:11→17:55)
[2018-03-14] MEDS: LACTOBACILLUS Acidoph/Bulgar (LACTINEX/FLORANEX) TAB PO SCH ×2 (06:11→17:54)
[2018-03-14] MEDS: GABAPENTIN 600 MG (NEURONTIN) TAB PO SCH ×3 (06:15→17:54)
[2018-03-14] MEDS: inSUlin ASPART (NovoLOG) 1 UNIT/0.01 ML (CHARGE PER UNIT) SC SCH ×4 (06:21→22:09)
[2018-03-14] MEDS: metFORMIN 500 MG (GLUCOPHAGE) TAB PO SCH ×2 (06:21→17:54)
[2018-03-14 06:35] LABS: HEMOGLOBIN 8.2 G/DL (11.5-16.0); MEAN PLATELET VOLUME 8.9 FL (7.4-10.4); RED BLOOD COUNT 3.2 10^6/uL (4.35-5.85); RED CELL DISTRIBUTION WIDTH 19.9 % (10.0-14.5); WHITE BLOOD COUNT 13.6 10^3/uL (4.3-11.0)
[2018-03-14 07:17] LABS: ALANINE AMINOTRANSFERASE 29 U/L (0-55); ALKALINE PHOSPHATASE 147 U/L (40-136); BILIRUBIN,TOTAL 0.7 MG/DL (0.1-1.0); BUN/CREATININE RATIO 11; CARBON DIOXIDE 23 MMOL/L (21-32); CHLORIDE 107 MMOL/L (98-107); GFR ESTIMATED > 60; GLUCOSE 97 MG/DL (70-105); POTASSIUM 3.8 MMOL/L (3.6-5.0); SODIUM 140 MMOL/L (135-145); TOTAL PROTEIN 5.3 GM/DL (6.4-8.2)
[2018-03-14 08:23] VITALS: BP 163/78
[2018-03-14] MEDS: busPIRone 15 MG (BUSPAR) TABLET PO SCH ×2 (08:40→22:09)
[2018-03-14] MEDS: oxyCODONE ER 10 MG (OxyCONTIN CR) TAB PO SCH ×2 (08:40→22:09)
[2018-03-14] MEDS: fluCOnazole (DIFLUCAN) 100 MG TAB PO SCH (08:40)
[2018-03-14] MEDS: LINAGLIPTIN (TRADJENTA) 5 MG TABLET PO SCH (08:40)
[2018-03-14] MEDS: buPROPion 100 MG (WELLBUTRIN) TAB PO SCH ×3 (08:40→22:09)
[2018-03-14] MEDS: SENNA W/DOCUSATE (SENOKOT S) TABLET PO SCH ×2 (08:40→22:08)
[2018-03-14] MEDS: ASPIRIN E.C. 81 MG (ECOTRIN) TAB PO SCH (08:40)
[2018-03-14] MEDS: CARVEDILOL 3.125 MG (COREG) TABLET PO SCH ×2 (08:40→22:09)
[2018-03-14 11:12] VITALS: BP 142/68
--- NOTE | 2018-03-14 12:32 | Progress Note (SOAP) ---
Subjective Date Seen by Provider: Mar 14, 2018 Time Seen by Provider: 12:29 Subjective/Events-last exam Fwup acute on chronic anemia requiring transfusion, S/P left leg amputation for chondrosarcoma with nonhealing infected wound--patient states was told MRSA, DMII, Hypertension. Currently diaphoretic and lethargic. Objective Exam Vital Signs Date Time Temp Pulse Resp B/P (MAP) Pulse Ox O2 Delivery O2 Flow Rate FiO2 03/14/18 11:12 98.8 97 18 142/68 (92) 90 Room Air 03/14/18 08:40 Room Air 03/14/18 08:23 98.8 110 20 163/78 (106) 92 Room Air 03/14/18 07:00 109 03/14/18 04:08 98.9 110 20 152/73 (99) 91 Room Air 03/14/18 01:00 101 03/14/18 00:00 98.7 99 20 135/82 (99) 90 Room Air 03/13/18 20:28 Room Air 03/13/18 19:10 98.1 110 20 157/87 (110) 91 Room Air 03/13/18 19:00 112 03/13/18 15:55 98.1 100 22 154/80 (104) 93 Room Air 03/13/18 13:00 99 I & O 03/14/18 07:00 Intake Total 2860 ml Output Total 1725 ml Balance 1135 ml Capillary Refill : Less Than 3 SecondsLess Than 3 Seconds General Appearance: Other (Lethargic/diaphoretic) Neck: Supple Respiratory: Lungs Clear Cardiovascular: Regular Rate, Rhythm Gastrointestinal: normal bowel sounds, non tender, soft, other (RLQ ostomy) Skin: Other (left groin/leg wound with dressing in place) Results Lab Laboratory Tests 03/13/18 15:57: Glucometer 138H 03/13/18 20:50: Glucometer 200H 03/14/18 05:31: Glucometer 104 03/14/18 06:19: White Blood Count 13.6H, Red Blood Count 3.20L, Hemoglobin 8.2L, Hematocrit 27L , Mean Corpuscular Volume 84, Mean Corpuscular Hemoglobin 26, Mean Corpuscular Hemoglobin Concent 31L, Red Cell Distribution Width 19.9H, Platelet Count 402H, Mean Platelet Volume 8.9, Sodium Level 140, Potassium Level 3.8, Chloride Level 107, Carbon Dioxide Level 23, Anion Gap 10, Blood Urea Nitrogen 8, Creatinine 0.70, Estimat Glomerular Filtration Rate > 60, BUN/Creatinine Ratio 11, Glucose Level 97, Calcium Level 9.0, Total Bilirubin 0.7, Aspartate Amino Transf (AST/ SGOT) 34, Alanine Aminotransferase (ALT/SGPT) 29, Alkaline Phosphatase 147H, Total Protein 5.3L, Albumin 3.0L 03/14/18 11:11: Glucometer 144H Microbiology 03/06/18 Blood Culture - Final, Complete No growth 03/06/18 Urine Culture - Final, Complete Yeast species Assessment/Plan Assessment/Plan Assess & Plan/Chief Complaint 1. Acute on Chronic Anemia--repeat H/H stable 2. 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 DM II--continue SSI and metformin, stat accucheck due to lethargy 4. Stomatitis--improving 5. Edema/Hypoalbuminemia--Improved Clinical Quality Measures Admission Status Admission Dx 1. Acute on Chronic Anemia--admit and transfuse and monitor H/H 2. Left leg amputation with nonhealing wound--IV antibiotics and consult wound care 3. Acute UTI--cover with IV antibiotics and await culture results 4. Diabetes mellitus--start accuchecks with SSI A DVT/VTE Risk/Contraindication: Risk Factor Score Per Nursin RFS Level Per Nursing on Admit: 4+=Very High HANNAH STYLES DO Mar 14, 2018 12:32
[2018-03-14 13:13] LABS: HEMOGLOBIN 8.1 G/DL (11.5-16.0); RED BLOOD COUNT 3.1 10^6/uL (4.35-5.85); RED CELL DISTRIBUTION WIDTH 19.6 % (10.0-14.5); WHITE BLOOD COUNT 13.9 10^3/uL (4.3-11.0)
--- NOTE | 2018-03-14 13:22 | Diagnostic Imaging Report ---
INDICATION: Respiratory distress and diaphoresis. TIME OF EXAMINATION: 01:08 p.m. COMPARISON: Correlation is made with prior study from 03/06/2018. FINDINGS: The heart size is stable. Right upper extremity PICC line has tip overlying the SVC. There is some hazy increased density to the right mid and lower lung field suggestive of a new infiltrate and or pleural fluid. The left lung is clear. There is no pneumothorax. IMPRESSION: Developing infiltrates/pleural effusion on the right when compared with examination from 03/06/2018. Dictated by: Dictated on workstation # [id number]
[2018-03-14 13:28] LABS: BUN/CREATININE RATIO 12; CALCIUM 8.6 MG/DL (8.5-10.1); CARBON DIOXIDE 21 MMOL/L (21-32); CHLORIDE 107 MMOL/L (98-107); CREATININE SERUM 0.69 MG/DL (0.60-1.30); GFR ESTIMATED > 60; GLUCOSE 108 MG/DL (70-105); POTASSIUM 3.8 MMOL/L (3.6-5.0); SODIUM 139 MMOL/L (135-145)
--- NOTE | 2018-03-14 14:51 | Physical Therapy Daily Note ---
PT Daily Note-Current Subjective Patient in bed pre tx, agrees to PT after waking up, no complaints of pain. Patient is very lethargic and diaphoretic. She is hard to rouse. Appearance Patient BTB post tx with nurse call, phone, tray, all needs met. Mental Status Patient Orientation: Person, Confused Patient is confused and lethargic, thinks her room has been changed around. Transfers Functional [place] Measure 0=Not Assessed/NA 4=Minimal Assistance 1=Total Assistance 5=Supervision or Setup 2=Maximal Assistance 6=Modified [place] 3=Moderate Assistance 7=Complete IndependenceIRFPAI Quality Coding Scale 6 Independent with activity with or without an assistive device 5 Patient requires set up or clean up by helper. Patient completes activity by themselves 4 Supervision or touching assist (CGA). [place] provide cues , steadying assist 3 The helper provides less than half the effort to complete the activity 2 The helper provides more than half the effort to complete the activity 1 Dependent. The helper does all the effort to complete an activity 7 Patient refused to complete or attempt activity 9 The patient did not perform the activity before the current illness or injury 88 Not attempted due to Medical conditions or safety concerns Transfers (B, C, W/C) (FIM): 1 Scootin Rollin Supine to/from Sit: 1 Patient was dependent for supine to sit transfer. She sat at the edge of the bed with max assist sitting and performed seated exercises with right leg. Afterwards she was layed back down, again dependent. Weight Bearing Right Lower Extremity: Right Full Weight Bearing Exercises Seated Therapy Exercises: Ankle pumps, Long arc quads Seated Reps: 10 Patient's right leg very weak, she can not perform a full LAQ. Treatments bed mobility, supine to sit, patient sat at the edge of the bed for about 10 min with max assist Assessment Current Status: Poor Progress No change in mobility PT Package Liner Goals Package Liner Goals PT Alf Goals Time Frame: Mar 16, 2018 Transfers (B,C,W/C) (FIM): 4 Wheelchair (FIM): 5 PT Plan Problem List Problem List: Activity Tolerance, Functional Strength, Safety, Balance, Gait, Transfer, Bed Mobility, ROM Treatment/Plan Treatment Plan: Continue Plan of Care Treatment Plan: Bed Mobility, Education, Functional Activity Lisa, Functional Strength, Safety, Therapeutic Exercise, Transfers Treatment Duration: Mar 16, 2018 Frequency: 6 times per week Estimated Hrs Per Day: .5 hour per day Patient and/or Family Agrees t: Yes Safety Risks/Education Patient Education: Transfer Techniques, Correct Positioning, Safety Issues Teaching Recipient: Patient Teaching Methods: Demonstration, Discussion Response to Teaching: Reinforcement Needed Time/GCodes Time In: 1430 Time Out: 1445 Total Billed Treatment Time: 15 Total Billed Treatment 1 visit FA 15' KARINA LOVE PT Mar 14, 2018 14:51
[2018-03-14] MEDS: VANCOMYCIN 1500 MG/NS 500 ML IVPB IV SCH ×2 (14:54)
[2018-03-14 15:25] VITALS: BP 138/83
[2018-03-14] MEDS: RIVAROXABAN 20 MG TABLET (XARELTO) PO SCH (17:54)
[2018-03-14 20:15] VITALS: BP 146/78
[2018-03-14] MEDS: NORTRIPTYLINE 25 MG (PAMELOR) CAP PO SCH (22:08)
[2018-03-14] MEDS: SIMvastatin 20 MG (ZOCOR) TAB PO SCH (22:09)
[2018-03-14] MEDS: ONDANSETRON 4 MG/2 ML (SDV) Z0FRAN IV PRN (22:59)
[2018-03-15 00:09] VITALS: BP 169/87
[2018-03-15] MEDS ORDERED: NS (IVPB) 100 ML ONE ×4 (00:47→17:39)
[2018-03-15] MEDS ORDERED: MEROPENEM 500 MG VIAL (MERREM) IV ONE ×4 (00:47→17:39)
[2018-03-15] MEDS: GABAPENTIN 600 MG (NEURONTIN) TAB PO SCH ×4 (00:52→17:35)
[2018-03-15] MEDS: NYSTATIN ORAL SUSP 5 ML UDC PO SCH ×4 (00:52→17:47)
[2018-03-15] MEDS: MEROPENEM 500 MG in NS (IVPB) 100 ML IV SCH ×4 (00:52→17:47)
[2018-03-15 04:01] VITALS: BP 143/83
[2018-03-15] MEDS: LEVOTHYROXINE 100 MCG (LEVOTHROID) TAB PO SCH (05:47)
[2018-03-15] MEDS: PANTOPRAZOLE 40 MG (PROTONIX) TAB PO SCH (05:47)
[2018-03-15] MEDS: LACTOBACILLUS Acidoph/Bulgar (LACTINEX/FLORANEX) TAB PO SCH ×2 (05:47→17:35)
[2018-03-15] MEDS: metFORMIN 500 MG (GLUCOPHAGE) TAB PO SCH ×2 (05:48→17:35)
[2018-03-15] MEDS: FERROUS SULF 325 MG (IRON) TAB PO SCH ×3 (05:48→17:35)
[2018-03-15] MEDS: inSUlin ASPART (NovoLOG) 1 UNIT/0.01 ML (CHARGE PER UNIT) SC SCH ×4 (06:43→21:42)
[2018-03-15 08:00] VITALS: BP 149/73
[2018-03-15] MEDS: IRON SUCROSE 200 MG/10 ML (VENOFER) VIAL IV SCH (08:38)
[2018-03-15] MEDS: ASPIRIN E.C. 81 MG (ECOTRIN) TAB PO SCH (08:38)
[2018-03-15] MEDS: busPIRone 15 MG (BUSPAR) TABLET PO SCH ×2 (08:38→21:42)
[2018-03-15] MEDS: CARVEDILOL 3.125 MG (COREG) TABLET PO SCH (08:38)
[2018-03-15] MEDS: fluCOnazole (DIFLUCAN) 100 MG TAB PO SCH (08:38)
[2018-03-15] MEDS: buPROPion 100 MG (WELLBUTRIN) TAB PO SCH ×3 (08:39→21:42)
[2018-03-15] MEDS: ONDANSETRON 4 MG (ZOFRAN) ORAL DISSOLVE TAB PO PRN (08:39)
[2018-03-15] MEDS: SENNA W/DOCUSATE (SENOKOT S) TABLET PO SCH ×2 (08:39→21:42)
[2018-03-15] MEDS: LINAGLIPTIN (TRADJENTA) 5 MG TABLET PO SCH (08:39)
[2018-03-15] MEDS: oxyCODONE ER 10 MG (OxyCONTIN CR) TAB PO SCH ×2 (09:12→21:42)
[2018-03-15] MEDS: DAKIN'S 1/4 STRENGTH (0.125%) 473 ML BTL TOP SCH (09:26)
[2018-03-15 11:25] VITALS: BP 134/63
--- NOTE | 2018-03-15 12:10 | Physical Therapy Daily Note ---
PT Daily Note-Current Subjective Pt laying Supine in bed. Pt agrees to PT. Pain Comment: Pt doesn't rate nor locate pain but ADMINISTRATIVE ASSISTANT FRONT DESK observes through facial grimace. Mental Status Patient Orientation: Person, Place, Situation Attachments: Melchor Catheter, Other-See Comments (Telemetry) Transfers Functional [place] Measure 0=Not Assessed/NA 4=Minimal Assistance 1=Total Assistance 5=Supervision or Setup 2=Maximal Assistance 6=Modified [place] 3=Moderate Assistance 7=Complete IndependenceIRFPAI Quality Coding Scale 6 Independent with activity with or without an assistive device 5 Patient requires set up or clean up by helper. Patient completes activity by themselves 4 Supervision or touching assist (CGA). [place] provide cues , steadying assist 3 The helper provides less than half the effort to complete the activity 2 The helper provides more than half the effort to complete the activity 1 Dependent. The helper does all the effort to complete an activity 7 Patient refused to complete or attempt activity 9 The patient did not perform the activity before the current illness or injury 88 Not attempted due to Medical conditions or safety concerns Rollin Roll Left to Right (QC): 1 Supine to/from Sit: 1 Sit to Lying (QC): 1 Weight Bearing Right Lower Extremity: Right Full Weight Bearing Exercises Supine Ex: Rolling Treatments Pt completes transfers from R sidelying to Seated at EOB then back to R sidelying. Pt also completes rolling to replace bed padding due to wetness. Assessment Current Status: Fair Progress Pt continues to try to complete trasnfers and rolling but is unable to complete unless Dep. at this time. PT Intermediate Goals Intermediate Goals PT Lithographic Etcher Goals Time Frame: Mar 16, 2018 Transfers (B,C,W/C) (FIM): 4 Rollin Wheelchair (FIM): 5 PT Plan Problem List Problem List: Activity Tolerance, Functional Strength, Safety, Balance, Gait, Transfer, Bed Mobility, ROM Treatment/Plan Treatment Plan: Continue Plan of Care Treatment Plan: Bed Mobility, Education, Functional Activity Lisa, Functional Strength, Safety, Therapeutic Exercise, Transfers Treatment Duration: Mar 16, 2018 Frequency: 6 times per week Estimated Hrs Per Day: .5 hour per day Patient and/or Family Agrees t: Yes Safety Risks/Education Patient Education: Transfer Techniques, Correct Positioning, Disease Process, Safety Issues Teaching Recipient: Patient Teaching Methods: Discussion Response to Teaching: Verbalize Understanding Time/GCodes Time In: 1140 Time Out: 1203 Total Billed Treatment Time: 23 Total Billed Treatment 1, FA x2 (23m) G Codes Necessary: FILEMON Guthrie ADMINISTRATIVE ASSISTANT FRONT DESK Mar 15, 2018 12:10
[2018-03-15] MEDS ORDERED: FUROSEMIDE 40 MG/4 ML INJ (LASIX) IVP NR (12:45)
[2018-03-15] MEDS ORDERED: KCL 8 MEQ (MICRO K) TABLET PO NR (12:45)
--- NOTE | 2018-03-15 12:55 | Progress Note (SOAP) ---
Subjective Date Seen by Provider: Mar 15, 2018 Time Seen by Provider: 12:51 Subjective/Events-last exam Fwup acute on chronic anemia requiring transfusion, S/P left leg amputation for chondrosarcoma with nonhealing infected wound--patient states was told MRSA, DMII, Hypertension. Awake and alert today. Focused Exam Lactate Level 03/14/18 12:53: Lactic Acid Level 0.94 Objective Exam Vital Signs Date Time Temp Pulse Resp B/P (MAP) Pulse Ox O2 Delivery O2 Flow Rate FiO2 03/15/18 11:25 96.9 94 16 134/63 (86) 99 Room Air 03/15/18 08:00 97.5 103 16 149/73 (98) 100 Room Air 03/15/18 07:00 101 03/15/18 04:01 98.6 110 18 143/83 (103) 94 Room Air 03/15/18 01:00 110 03/15/18 00:09 98.6 102 17 169/87 (114) 94 Room Air 03/14/18 20:15 98.9 109 18 146/78 (100) 94 Room Air 03/14/18 20:00 Room Air 03/14/18 19:00 103 03/14/18 15:25 97.2 87 20 138/83 (101) 92 Room Air 03/14/18 13:00 93 I & O 03/15/18 07:00 Intake Total 1902 ml Output Total 1850 ml Balance 52 ml Capillary Refill : Less Than 3 SecondsLess Than 3 Seconds General Appearance: No Apparent Distress Neck: Supple Respiratory: Lungs Clear, Decreased Breath Sounds Cardiovascular: Tachycardia Extremity: Non Tender, No Calf Tenderness, Pedal Edema (right leg) Neurologic/Psychiatric: Alert, Oriented x3 Results Lab Laboratory Tests 03/14/18 12:53: White Blood Count 13.9H, Red Blood Count 3.10L, Hemoglobin 8.1L, Hematocrit 26L , Mean Corpuscular Volume 84, Mean Corpuscular Hemoglobin 26, Mean Corpuscular Hemoglobin Concent 31L, Red Cell Distribution Width 19.6H, Platelet Count 365, Mean Platelet Volume 9.0, Sodium Level 139, Potassium Level 3.8, Chloride Level 107, Carbon Dioxide Level 21, Anion Gap 11, Blood Urea Nitrogen 8, Creatinine 0.69, Estimat Glomerular Filtration Rate > 60, BUN/Creatinine Ratio 12, Glucose Level 108H, Lactic Acid Level 0.94, Calcium Level 8.6, Troponin I < 0.30 03/14/18 15:26: Glucometer 93 03/14/18 20:18: Glucometer 134H 03/15/18 06:12: Glucometer 100 03/15/18 10:57: Glucometer 121H Microbiology 03/06/18 Blood Culture - Final, Complete No growth 03/06/18 Urine Culture - Final, Complete Yeast species Assessment/Plan Assessment/Plan Assess & Plan/Chief Complaint 1. Acute on Chronic Anemia--repeat H/H in AM 2. Left Leg Chondrosarcoma--S/P amputation with nonhealing wound with MRSA-- continue meropenem and IV Vancomycin, SS checking into SNF vs LTAC for DC planning 3. DM II--continue SSI and metformin 4. Stomatitis--improving 5. Edema/Hypoalbuminemia--start low dose lasix and potassium 6. HTN/Tachycardia--increase Coreg to 6.25mg po BID Clinical Quality Measures Admission Status Admission Dx 1. Acute on Chronic Anemia--admit and transfuse and monitor H/H 2. Left leg amputation with nonhealing wound--IV antibiotics and consult wound care 3. Acute UTI--cover with IV antibiotics and await culture results 4. Diabetes mellitus--start accuchecks with SSI A DVT/VTE Risk/Contraindication: Risk Factor Score Per Nursin RFS Level Per Nursing on Admit: 4+=Very High HANNAH STYLES DO Mar 15, 2018 12:55
[2018-03-15] MEDS ORDERED: TROUGH ORDER-PHARMACY XX ONE (13:00)
[2018-03-15] MEDS: VANCOMYCIN 1500 MG/NS 500 ML IVPB IV SCH ×2 (14:05)
[2018-03-15 16:00] VITALS: BP 132/70
[2018-03-15] MEDS: RIVAROXABAN 20 MG TABLET (XARELTO) PO SCH (17:35)
[2018-03-15 20:55] VITALS: BP 129/69
[2018-03-15] MEDS: SIMvastatin 20 MG (ZOCOR) TAB PO SCH (21:42)
[2018-03-15] MEDS: CARVEDILOL 6.25 MG (COREG) TAB PO SCH (21:42)
[2018-03-15] MEDS: NORTRIPTYLINE 25 MG (PAMELOR) CAP PO SCH (21:42)
[2018-03-15] MEDS: ZINC OXIDE 16% OINT (BUTT PASTE) 113 GM TUBE TOP SCH (21:43)
[2018-03-16] VITALS (7 sets, daily range): BP systolic 134–145; BP diastolic 62–75
[2018-03-16] MEDS ORDERED: MEROPENEM 500 MG VIAL (MERREM) IV ONE ×2 (00:46→05:56)
[2018-03-16] MEDS ORDERED: NS (IVPB) 100 ML ONE ×2 (00:47→05:56)
[2018-03-16] MEDS: MEROPENEM 500 MG in NS (IVPB) 100 ML IV SCH ×5 (00:54→17:42)
[2018-03-16] MEDS: GABAPENTIN 600 MG (NEURONTIN) TAB PO SCH ×4 (00:54→17:43)
[2018-03-16] MEDS: NYSTATIN ORAL SUSP 5 ML UDC PO SCH ×4 (01:02→17:42)
[2018-03-16] MEDS: FERROUS SULF 325 MG (IRON) TAB PO SCH ×3 (06:17→17:41)
[2018-03-16] MEDS: metFORMIN 500 MG (GLUCOPHAGE) TAB PO SCH ×2 (06:17→17:41)
[2018-03-16] MEDS: PANTOPRAZOLE 40 MG (PROTONIX) TAB PO SCH (06:17)
[2018-03-16] MEDS: LACTOBACILLUS Acidoph/Bulgar (LACTINEX/FLORANEX) TAB PO SCH ×2 (06:17→17:42)
[2018-03-16] MEDS: LEVOTHYROXINE 100 MCG (LEVOTHROID) TAB PO SCH (06:17)
[2018-03-16] MEDS: KCL 8 MEQ (MICRO K) TABLET PO SCH (06:17)
[2018-03-16] MEDS: inSUlin ASPART (NovoLOG) 1 UNIT/0.01 ML (CHARGE PER UNIT) SC SCH ×4 (06:57→21:03)
[2018-03-16 07:45] LABS: BASOPHILS % (AUTO) 0 % (0-10); EOSINOPHILS # (AUTO) 0.4 10^3/uL (0.0-0.3); EOSINOPHILS % (AUTO) 3 % (0-10); HEMATOCRIT 26 % (35-52); LYMPHOCYTES # (AUTO) 0.9 X 10^3 (1.0-4.0); LYMPHOCYTES % (AUTO) 7 % (12-44); MEAN CORPUSCULAR HEMOGLOBIN 26 PG (25-34); MEAN CORPUSCULAR HGB CONC 31 G/DL (32-36); MEAN CORPUSCULAR VOLUME 85 FL (80-99); MEAN PLATELET VOLUME 8.9 FL (7.4-10.4); MONOCYTES # (AUTO) 1.4 X 10^3 (0.0-1.0); MONOCYTES % (AUTO) 11 % (0-12); NEUTROPHILS # (AUTO) 9.9 X 10^3 (1.8-7.8); NEUTROPHILS % (AUTO) 79 % (42-75); PLATELET COUNT 364 10^3/uL (130-400); RED CELL DISTRIBUTION WIDTH 19.4 % (10.0-14.5); WHITE BLOOD COUNT 12.6 10^3/uL (4.3-11.0)
[2018-03-16] MEDS: LINAGLIPTIN (TRADJENTA) 5 MG TABLET PO SCH (08:06)
[2018-03-16] MEDS: fluCOnazole (DIFLUCAN) 100 MG TAB PO SCH (08:06)
[2018-03-16] MEDS: CARVEDILOL 6.25 MG (COREG) TAB PO SCH ×2 (08:06→20:25)
[2018-03-16] MEDS: buPROPion 100 MG (WELLBUTRIN) TAB PO SCH ×3 (08:06→20:25)
[2018-03-16] MEDS: oxyCODONE ER 10 MG (OxyCONTIN CR) TAB PO SCH ×2 (08:06→20:25)
[2018-03-16] MEDS: ASPIRIN E.C. 81 MG (ECOTRIN) TAB PO SCH (08:06)
[2018-03-16] MEDS: FUROSEMIDE 20 MG (LASIX) TAB PO SCH (08:06)
[2018-03-16 08:07] LABS: ALANINE AMINOTRANSFERASE 27 U/L (0-55); ALBUMIN 2.7 GM/DL (3.2-4.5); ALKALINE PHOSPHATASE 142 U/L (40-136); BILIRUBIN,TOTAL 0.6 MG/DL (0.1-1.0); BUN/CREATININE RATIO 13; CALCIUM 8.6 MG/DL (8.5-10.1); CARBON DIOXIDE 25 MMOL/L (21-32); CHLORIDE 105 MMOL/L (98-107); CREATININE SERUM 0.67 MG/DL (0.60-1.30); GFR ESTIMATED > 60; GLUCOSE 90 MG/DL (70-105); POTASSIUM 3.8 MMOL/L (3.6-5.0); SODIUM 140 MMOL/L (135-145); TOTAL PROTEIN 5.1 GM/DL (6.4-8.2)
[2018-03-16] MEDS: ZINC OXIDE 16% OINT (BUTT PASTE) 113 GM TUBE TOP SCH ×2 (08:07→20:26)
[2018-03-16] MEDS: SENNA W/DOCUSATE (SENOKOT S) TABLET PO SCH ×2 (08:07→20:25)
[2018-03-16] MEDS: busPIRone 15 MG (BUSPAR) TABLET PO SCH ×2 (08:07→20:25)
[2018-03-16 08:53] LABS: BASOPHILS % (MANUAL) 1 %; ELLIPT/OVALOCYTES SLIGHT; EOSINOPHILS % (MANUAL) 2 %; HYPOCHROMASIA MODERATE; LYMPHOCYTES % (MANUAL) 5 %; MONOCYTES % (MANUAL) 4 %; NEUTROPHILS % (MANUAL) 88 %; POLYCHROMASIA SLIGHT
[2018-03-16] MEDS: COLLAGENASE 30 GM (SANTYL) TUBE TP PRN (10:02)
--- NOTE | 2018-03-16 11:43 | Physical Therapy Daily Note ---
PT Daily Note-Current Subjective Pt R sidelying upon arrival. Pt agrees to PT for transfer/bed mobility training. Mental Status Patient Orientation: Person, Place Attachments: Melchor Catheter Transfers Functional [place] Measure 0=Not Assessed/NA 4=Minimal Assistance 1=Total Assistance 5=Supervision or Setup 2=Maximal Assistance 6=Modified [place] 3=Moderate Assistance 7=Complete IndependenceIRFPAI Quality Coding Scale 6 Independent with activity with or without an assistive device 5 Patient requires set up or clean up by helper. Patient completes activity by themselves 4 Supervision or touching assist (CGA). [place] provide cues , steadying assist 3 The helper provides less than half the effort to complete the activity 2 The helper provides more than half the effort to complete the activity 1 Dependent. The helper does all the effort to complete an activity 7 Patient refused to complete or attempt activity 9 The patient did not perform the activity before the current illness or injury 88 Not attempted due to Medical conditions or safety concerns Scootin Rollin Supine to/from Sit: 1 Weight Bearing Right Lower Extremity: Right Full Weight Bearing Exercises Supine Ex: Rolling Treatments Pt attempts to Sit at EOB. Pt is Dep. with transfer. Pt is not able to maintain balance at EOB & leans heavily to R side. Pt rports that bed pad is "wet" so pt returns to R sidelying and rolls Dep. from R to L & back to position new bed pad. Pt resting R sidelying again after transfer. Pt has all needs met at end of tx, including food tray in front of pt & phone/call light next to pt. Assessment Current Status: Poor Progress Pt is to see [place] rep today to see if transfer is appropriate. Pt is Dep. with all transfers and bed mobility. PT Long-Term Goals [place]ha[place]r Goals PT Long-Term Goals Time Frame: Mar 16, 2018 Transfers (B,C,W/C) (FIM): 4 Wheelchair (FIM): 5 PT Plan Problem List Problem List: Activity Tolerance, Functional Strength, Safety, Balance, Gait, Transfer, Bed Mobility, ROM Treatment/Plan Treatment Plan: Continue Plan of Care Treatment Plan: Bed Mobility, Education, Functional Activity Lisa, Functional Strength, Safety, Therapeutic Exercise, Transfers Treatment Duration: Mar 16, 2018 Frequency: 6 times per week Estimated Hrs Per Day: .5 hour per day Patient and/or Family Agrees t: Yes Safety Risks/Education Patient Education: Transfer Techniques, Correct Positioning, Disease Process, Safety Issues Teaching Recipient: Patient Teaching Methods: Discussion Response to Teaching: Reinforcement Needed Time/GCodes Time In: 1110 Time Out: 1125 Total Billed Treatment Time: 15 Total Billed Treatment 1, CINDY (15m) G Codes Necessary: FILEMON Guthrie PTA Mar 16, 2018 11:43
[2018-03-16] MEDS: VANCOMYCIN 1500 MG/NS 500 ML IVPB IV SCH ×2 (14:04)
[2018-03-16] MEDS: RIVAROXABAN 20 MG TABLET (XARELTO) PO SCH (17:42)
[2018-03-16] MEDS: NORTRIPTYLINE 25 MG (PAMELOR) CAP PO SCH (20:25)
[2018-03-16] MEDS: SIMvastatin 20 MG (ZOCOR) TAB PO SCH (20:25)
[2018-03-17] VITALS (7 sets, daily range): BP systolic 120–148; BP diastolic 61–67
[2018-03-17] MEDS: MEROPENEM 500 MG in NS (IVPB) 100 ML IV SCH ×5 (01:13→23:40)
[2018-03-17] MEDS: NYSTATIN ORAL SUSP 5 ML UDC PO SCH ×5 (01:15→23:40)
[2018-03-17] MEDS: GABAPENTIN 600 MG (NEURONTIN) TAB PO SCH ×5 (01:15→23:40)
[2018-03-17] MEDS: metFORMIN 500 MG (GLUCOPHAGE) TAB PO SCH (05:58)
[2018-03-17] MEDS: KCL 8 MEQ (MICRO K) TABLET PO SCH (05:58)
[2018-03-17] MEDS: LACTOBACILLUS Acidoph/Bulgar (LACTINEX/FLORANEX) TAB PO SCH ×2 (05:58→17:25)
[2018-03-17] MEDS: inSUlin ASPART (NovoLOG) 1 UNIT/0.01 ML (CHARGE PER UNIT) SC SCH ×4 (05:59→21:00)
[2018-03-17] MEDS: LEVOTHYROXINE 100 MCG (LEVOTHROID) TAB PO SCH (05:59)
[2018-03-17] MEDS: FERROUS SULF 325 MG (IRON) TAB PO SCH ×3 (05:59→17:25)
[2018-03-17] MEDS: PANTOPRAZOLE 40 MG (PROTONIX) TAB PO SCH (05:59)
[2018-03-17] MEDS: buPROPion 100 MG (WELLBUTRIN) TAB PO SCH ×3 (08:52→21:05)
[2018-03-17] MEDS: LINAGLIPTIN (TRADJENTA) 5 MG TABLET PO SCH (08:52)
[2018-03-17] MEDS: IRON SUCROSE 200 MG/10 ML (VENOFER) VIAL IV SCH (08:52)
[2018-03-17] MEDS: fluCOnazole (DIFLUCAN) 100 MG TAB PO SCH (08:52)
[2018-03-17] MEDS: CARVEDILOL 6.25 MG (COREG) TAB PO SCH ×2 (08:52→21:05)
[2018-03-17] MEDS: busPIRone 15 MG (BUSPAR) TABLET PO SCH ×2 (08:52→21:05)
[2018-03-17] MEDS: ASPIRIN E.C. 81 MG (ECOTRIN) TAB PO SCH (08:53)
[2018-03-17] MEDS: ZINC OXIDE 16% OINT (BUTT PASTE) 113 GM TUBE TOP SCH ×2 (08:53→21:06)
[2018-03-17] MEDS: oxyCODONE ER 10 MG (OxyCONTIN CR) TAB PO SCH ×2 (08:53→21:05)
[2018-03-17] MEDS: SENNA W/DOCUSATE (SENOKOT S) TABLET PO SCH ×2 (08:53→21:05)
[2018-03-17] MEDS: FUROSEMIDE 20 MG (LASIX) TAB PO SCH (08:53)
[2018-03-17] MEDS: COLLAGENASE 30 GM (SANTYL) TUBE TP PRN (10:02)
--- NOTE | 2018-03-17 12:54 | Progress Note (SOAP) ---
Subjective Date Seen by Provider: Mar 16, 2018 Time Seen by Provider: 12:50 Subjective/Events-last exam Fwup acute on chronic anemia requiring transfusion, S/P left leg amputation for chondrosarcoma with nonhealing infected wound--patient states was told MRSA, DMII, Hypertension. Groggy again this morning. Awaiting [place] evaluation. Focused Exam Lactate Level 03/14/18 12:53: Lactic Acid Level 0.94 Objective Exam Vital Signs Date Time Temp Pulse Resp B/P (MAP) Pulse Ox O2 Delivery O2 Flow Rate FiO2 03/17/18 12:32 Nasal Cannula 1.50 03/17/18 08:30 98.6 97 18 127/66 (86) 93 Nasal Cannula 1.50 03/17/18 07:15 98 03/17/18 04:36 98.8 93 18 120/63 (82) 96 Room Air 03/17/18 01:00 91 03/17/18 00:59 99.1 92 17 129/66 (87) 97 Room Air 03/16/18 20:50 98.9 101 18 145/71 (95) 99 Nasal Cannula 1.50 03/16/18 19:00 95 03/16/18 16:07 97.1 91 18 134/70 (91) 97 Nasal Cannula 1.50 03/16/18 13:00 95 I & O 03/17/18 07:00 Intake Total 1370 ml Output Total 790 ml Balance 580 ml Capillary Refill : Less Than 3 SecondsLess Than 3 Seconds General Appearance: No Apparent Distress Respiratory: Lungs Clear Cardiovascular: Regular Rate, Rhythm Gastrointestinal: normal bowel sounds, soft Extremity: Non Tender, No Calf Tenderness, Pedal Edema (right leg but improved) Neurologic/Psychiatric: Alert, Oriented x3 Skin: Pallor Results Lab Laboratory Tests 03/16/18 16:07: Glucometer 134H 03/16/18 20:59: Glucometer 182H 03/17/18 05:16: Glucometer 114H 03/17/18 10:50: Glucometer 122H Microbiology 03/14/18 Blood Culture - Preliminary, Resulted No growth 03/06/18 Urine Culture - Final, Complete Yeast species Assessment/Plan Assessment/Plan Assess & Plan/Chief Complaint 1. Acute on Chronic Anemia--Hgb stable at 8 2. Left Leg Chondrosarcoma--S/P amputation with nonhealing wound with MRSA-- continue meropenem and IV Vancomycin, SS checking into LTAC at this time 3. DM II--continue SSI and decrease metformin as her episodes of grogginess appear to be hypoglycemic like even though BS has been low 100 4. Stomatitis--improving 5. Edema/Hypoalbuminemia--started low dose lasix and potassium 6. HTN/Tachycardia--improved with increased Coreg to 6.25mg po BID Clinical Quality Measures Admission Status Admission Dx 1. Acute on Chronic Anemia--admit and transfuse and monitor H/H 2. Left leg amputation with nonhealing wound--IV antibiotics and consult wound care 3. Acute UTI--cover with IV antibiotics and await culture results 4. Diabetes mellitus--start accuchecks with SSI A DVT/VTE Risk/Contraindication: Risk Factor Score Per Nursin RFS Level Per Nursing on Admit: 4+=Very High HANNAH STYLES DO Mar 17, 2018 12:54 pm
--- NOTE | 2018-03-17 12:57 | Progress Note (SOAP) ---
Subjective Date Seen by Provider: Mar 17, 2018 Time Seen by Provider: 12:55 Subjective/Events-last exam Fwup acute on chronic anemia requiring transfusion, S/P left leg amputation for chondrosarcoma with nonhealing infected wound--patient states was told MRSA, DMII, Hypertension. [place] has submitted info to insurance for admission approval. Objective Exam Vital Signs Date Time Temp Pulse Resp B/P (MAP) Pulse Ox O2 Delivery O2 Flow Rate FiO2 03/17/18 12:32 Nasal Cannula 1.50 03/17/18 08:30 98.6 97 18 127/66 (86) 93 Nasal Cannula 1.50 03/17/18 07:15 98 03/17/18 04:36 98.8 93 18 120/63 (82) 96 Room Air 03/17/18 01:00 91 03/17/18 00:59 99.1 92 17 129/66 (87) 97 Room Air 03/16/18 20:50 98.9 101 18 145/71 (95) 99 Nasal Cannula 1.50 03/16/18 19:00 95 03/16/18 16:07 97.1 91 18 134/70 (91) 97 Nasal Cannula 1.50 03/16/18 13:00 95 I & O 03/17/18 07:00 Intake Total 1370 ml Output Total 790 ml Balance 580 ml Capillary Refill : Less Than 3 SecondsLess Than 3 Seconds General Appearance: No Apparent Distress, Other (lethargic again today) Neck: Supple Respiratory: Lungs Clear Cardiovascular: Regular Rate, Rhythm Gastrointestinal: normal bowel sounds, soft Extremity: Pedal Edema (RLE improving) Neurologic/Psychiatric: Other (groggy) Skin: Other (left hip wound with dressing and large amount of eschar) Results Lab Laboratory Tests 03/16/18 16:07: Glucometer 134H 03/16/18 20:59: Glucometer 182H 03/17/18 05:16: Glucometer 114H 03/17/18 10:50: Glucometer 122H Microbiology 03/14/18 Blood Culture - Preliminary, Resulted No growth 03/06/18 Urine Culture - Final, Complete Yeast species Assessment/Plan Assessment/Plan Assess & Plan/Chief Complaint 1. Acute on Chronic Anemia--Hgb stable at 8, recheck in AM 2. Left Leg Chondrosarcoma--S/P amputation with nonhealing wound with MRSA-- continue meropenem and IV Vancomycin, Awaiting [place] approval 3. DM II--continue SSI, will decrease metformin again as her episodes of grogginess appear to be hypoglycemic like even though BS has been low 100 4. Stomatitis--improving 5. Edema/Hypoalbuminemia--started low dose lasix and potassium 6. HTN/Tachycardia--improved with increased Coreg to 6.25mg po BID Clinical Quality Measures Admission Status Admission Dx 1. Acute on Chronic Anemia--admit and transfuse and monitor H/H 2. Left leg amputation with nonhealing wound--IV antibiotics and consult wound care 3. Acute UTI--cover with IV antibiotics and await culture results 4. Diabetes mellitus--start accuchecks with SSI A DVT/VTE Risk/Contraindication: Risk Factor Score Per Nursin RFS Level Per Nursing on Admit: 4+=Very High HANNAH STYLES DO Mar 17, 2018 12:57 pm
[2018-03-17] MEDS ORDERED: ALBUMIN 25% 25 GM/100 ML 100 ML IV NR (13:00)
[2018-03-17] MEDS: VANCOMYCIN 1500 MG/NS 500 ML IVPB IV SCH ×2 (14:01)
--- NOTE | 2018-03-17 16:00 | Physical Therapy Daily Note ---
PT Daily Note-Current Subjective Pt laying R sidelying upon arrival. Pt agrees to Supine Ex in bed. [place] rep visits with pt during tx. Mental Status Patient Orientation: Person, Place, Situation Attachments: Melchor Catheter Transfers Functional [place] Measure 0=Not Assessed/NA 4=Minimal Assistance 1=Total Assistance 5=Supervision or Setup 2=Maximal Assistance 6=Modified [place] 3=Moderate Assistance 7=Complete IndependenceIRFPAI Quality Coding Scale 6 Independent with activity with or without an assistive device 5 Patient requires set up or clean up by helper. Patient completes activity by themselves 4 Supervision or touching assist (CGA). [place] provide cues , steadying assist 3 The helper provides less than half the effort to complete the activity 2 The helper provides more than half the effort to complete the activity 1 Dependent. The helper does all the effort to complete an activity 7 Patient refused to complete or attempt activity 9 The patient did not perform the activity before the current illness or injury 88 Not attempted due to Medical conditions or safety concerns Weight Bearing Right Lower Extremity: Right Full Weight Bearing Exercises Supine Ex: Ankle pumps, Quad Set, Heel Slides Supine Reps: 15 Treatments Pt completes supine Ex in bed at [facility] with a couple of rest breaks. [place] rep visits with pt & MANAGER GAMING to check on progress & see if pt is appropriate fit for transfer. Assessment Current Status: Fair Progress Pt continues to be weak and fatigues easily. PT Nursing Home Goals Lead Software Developer Goals PT Lead Software Developer Goals Time Frame: Mar 16, 2018 Transfers (B,C,W/C) (FIM): 4 Wheelchair (FIM): 5 PT Plan Problem List Problem List: Activity Tolerance, Functional Strength, Safety, Balance, Gait, Transfer, Bed Mobility, ROM Treatment/Plan Treatment Plan: Continue Plan of Care Treatment Plan: Bed Mobility, Education, Functional Activity Lisa, Functional Strength, Safety, Therapeutic Exercise, Transfers Treatment Duration: Mar 16, 2018 Frequency: 6 times per week Estimated Hrs Per Day: .5 hour per day Patient and/or Family Agrees t: Yes Safety Risks/Education Patient Education: Transfer Techniques, Correct Positioning, Safety Issues Teaching Recipient: Patient Teaching Methods: Discussion Response to Teaching: Verbalize Understanding Time/GCodes Time In: 1500 Time Out: 1525 Total Billed Treatment Time: 25 Total Billed Treatment 1, EX (15m) & FA (10m) G Codes Necessary: FILEMON Guthrie MANAGER GAMING Mar 17, 2018 16:00
[2018-03-17] MEDS: RIVAROXABAN 20 MG TABLET (XARELTO) PO SCH (17:23)
[2018-03-17] MEDS: SIMvastatin 20 MG (ZOCOR) TAB PO SCH (21:05)
[2018-03-17] MEDS: NORTRIPTYLINE 25 MG (PAMELOR) CAP PO SCH (21:05)
[2018-03-18] VITALS (7 sets, daily range): BP systolic 110–147; BP diastolic 56–76
[2018-03-18] MEDS: NYSTATIN ORAL SUSP 5 ML UDC PO SCH ×2 (06:00→13:10)
[2018-03-18] MEDS: LEVOTHYROXINE 100 MCG (LEVOTHROID) TAB PO SCH (06:00)
[2018-03-18] MEDS: KCL 8 MEQ (MICRO K) TABLET PO SCH (06:00)
[2018-03-18] MEDS: PANTOPRAZOLE 40 MG (PROTONIX) TAB PO SCH (06:00)
[2018-03-18] MEDS: MEROPENEM 500 MG in NS (IVPB) 100 ML IV SCH ×2 (06:00→13:10)
[2018-03-18] MEDS: GABAPENTIN 600 MG (NEURONTIN) TAB PO SCH ×2 (06:00→13:10)
[2018-03-18] MEDS: FERROUS SULF 325 MG (IRON) TAB PO SCH ×2 (06:01→13:10)
[2018-03-18] MEDS: LACTOBACILLUS Acidoph/Bulgar (LACTINEX/FLORANEX) TAB PO SCH (06:01)
[2018-03-18] MEDS: inSUlin ASPART (NovoLOG) 1 UNIT/0.01 ML (CHARGE PER UNIT) SC SCH ×3 (06:01→16:16)
[2018-03-18 06:13] LABS: BASOPHILS % (AUTO) 0 % (0-10); EOSINOPHILS # (AUTO) 0.2 10^3/uL (0.0-0.3); EOSINOPHILS % (AUTO) 1 % (0-10); HEMATOCRIT 23 % (35-52); LYMPHOCYTES # (AUTO) 0.9 X 10^3 (1.0-4.0); LYMPHOCYTES % (AUTO) 7 % (12-44); MEAN CORPUSCULAR HEMOGLOBIN 26 PG (25-34); MEAN CORPUSCULAR HGB CONC 31 G/DL (32-36); MEAN CORPUSCULAR VOLUME 85 FL (80-99); MEAN PLATELET VOLUME 8.9 FL (7.4-10.4); MONOCYTES # (AUTO) 1.5 X 10^3 (0.0-1.0); MONOCYTES % (AUTO) 11 % (0-12); NEUTROPHILS # (AUTO) 10.4 X 10^3 (1.8-7.8); NEUTROPHILS % (AUTO) 81 % (42-75); PLATELET COUNT 284 10^3/uL (130-400); RED CELL DISTRIBUTION WIDTH 19.2 % (10.0-14.5); WHITE BLOOD COUNT 12.9 10^3/uL (4.3-11.0)
[2018-03-18 06:33] LABS: ALANINE AMINOTRANSFERASE 18 U/L (0-55); ALBUMIN 2.7 GM/DL (3.2-4.5); ALKALINE PHOSPHATASE 164 U/L (40-136); BILIRUBIN,TOTAL 0.7 MG/DL (0.1-1.0); BUN/CREATININE RATIO 11; CALCIUM 8.2 MG/DL (8.5-10.1); CARBON DIOXIDE 24 MMOL/L (21-32); CHLORIDE 102 MMOL/L (98-107); CREATININE SERUM 0.71 MG/DL (0.60-1.30); GFR ESTIMATED > 60; GLUCOSE 101 MG/DL (70-105); POTASSIUM 3.4 MMOL/L (3.6-5.0); SODIUM 137 MMOL/L (135-145); TOTAL PROTEIN 4.8 GM/DL (6.4-8.2)
[2018-03-18] MEDS ORDERED: metFORMIN 500 MG (GLUCOPHAGE) TAB PO SCH (07:00)
[2018-03-18] MEDS: oxyCODONE ER 10 MG (OxyCONTIN CR) TAB PO SCH (08:53)
[2018-03-18] MEDS: FUROSEMIDE 20 MG (LASIX) TAB PO SCH (08:53)
[2018-03-18] MEDS: ASPIRIN E.C. 81 MG (ECOTRIN) TAB PO SCH (08:53)
[2018-03-18] MEDS: busPIRone 15 MG (BUSPAR) TABLET PO SCH (08:53)
[2018-03-18] MEDS: LINAGLIPTIN (TRADJENTA) 5 MG TABLET PO SCH (08:53)
[2018-03-18] MEDS: fluCOnazole (DIFLUCAN) 100 MG TAB PO SCH (08:53)
[2018-03-18] MEDS: SENNA W/DOCUSATE (SENOKOT S) TABLET PO SCH (08:53)
[2018-03-18] MEDS: buPROPion 100 MG (WELLBUTRIN) TAB PO SCH ×2 (08:53→14:50)
[2018-03-18] MEDS: CARVEDILOL 6.25 MG (COREG) TAB PO SCH (08:53)
[2018-03-18] MEDS: HYDROcodone/APAP 7.5 MG/325 MG (LORTAB, LORCET PLUS) TABLET PO PRN ×2 (08:54→14:50)
[2018-03-18] MEDS: ZINC OXIDE 16% OINT (BUTT PASTE) 113 GM TUBE TOP SCH (08:58)
[2018-03-18] MEDS ORDERED: KCL 20 MEQ TAB (K-DUR) PO NR (11:00)
[2018-03-18] MEDS ORDERED: NS IV 500 ML 500 ML ONE (13:26)
[2018-03-18] MEDS ORDERED: NORT25CA PO (14:17)
[2018-03-18] MEDS ORDERED: HYDR-34 PO (14:17)
[2018-03-18] MEDS ORDERED: METF10002 PO (14:17)
[2018-03-18] MEDS ORDERED: BUSP30TA2 PO (14:17)
[2018-03-18] MEDS ORDERED: FURO20TA4 PO (14:17)
[2018-03-18] MEDS ORDERED: POTA8CAP9 PO (14:17)
[2018-03-18] MEDS ORDERED: CARV6.252 PO (14:17)
--- NOTE | 2018-03-18 14:24 | Progress Note (SOAP) ---
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 Has tentatively been accepted to [facility] but awaiting bed. Objective Exam Vital Signs Date Time Temp Pulse Resp B/P (MAP) Pulse Ox O2 Delivery O2 Flow Rate FiO2 03/18/18 14:13 96.9 84 18 137/70 99 Nasal Cannula 1.50 03/18/18 13:50 97.1 85 18 124/76 100 Nasal Cannula 1.50 03/18/18 08:30 98.9 92 16 147/71 (96) 98 Nasal Cannula 1.50 03/18/18 08:05 Room Air 03/18/18 07:00 84 03/18/18 04:08 99.2 88 18 110/56 (74) 96 Nasal Cannula 1.50 03/18/18 01:00 100 03/17/18 23:54 99.3 96 18 148/67 (94) 98 Nasal Cannula 1.50 03/17/18 20:00 Room Air 03/17/18 20:00 100.4 92 16 139/65 (89) 96 Nasal Cannula 1.50 03/17/18 19:00 93 03/17/18 16:26 99.1 91 16 132/67 (88) 92 Nasal Cannula 1.50 I & O 03/18/18 07:00 Intake Total 700 ml Output Total 1345 ml Balance -645 ml Capillary Refill : Less Than 3 SecondsLess Than 3 Seconds General Appearance: No Apparent Distress Neck: Supple Respiratory: Lungs Clear Cardiovascular: Regular Rate, Rhythm Gastrointestinal: normal bowel sounds, non tender, soft Neurologic/Psychiatric: Alert Skin: Pallor, Other (left hip wound with eschar and wet dressing) Results Lab Laboratory Tests 03/17/18 16:39: Glucometer 290H 03/17/18 21:12: Glucometer 147H 03/18/18 05:25: Glucometer 124H 03/18/18 06:00: White Blood Count 12.9H, Red Blood Count 2.70L, Hemoglobin 7.0L, Hematocrit 23L , Mean Corpuscular Volume 85, Mean Corpuscular Hemoglobin 26, Mean Corpuscular Hemoglobin Concent 31L, Red Cell Distribution Width 19.2H, Platelet Count 284, Mean Platelet Volume 8.9, Neutrophils (%) (Auto) 81H, Lymphocytes (%) (Auto) 7L , Monocytes (%) (Auto) 11, Eosinophils (%) (Auto) 1, Basophils (%) (Auto) 0, Neutrophils # (Auto) 10.4H, Lymphocytes # (Auto) 0.9L, Monocytes # (Auto) 1.5H, Eosinophils # (Auto) 0.2, Basophils # (Auto) 0.0, Sodium Level 137, Potassium Level 3.4L, Chloride Level 102, Carbon Dioxide Level 24, Anion Gap 11, Blood Urea Nitrogen 8, Creatinine 0.71, Estimat Glomerular Filtration Rate > 60, BUN/ Creatinine Ratio 11, Glucose Level 101, Calcium Level 8.2L, Total Bilirubin 0.7 , Aspartate Amino Transf (AST/SGOT) 28, Alanine Aminotransferase (ALT/SGPT) 18, Alkaline Phosphatase 164H, Total Protein 4.8L, Albumin 2.7L 03/18/18 11:36: Glucometer 191H Microbiology 03/14/18 Blood Culture - Preliminary, Resulted No growth 03/06/18 Urine Culture - Final, Complete Yeast species Assessment/Plan Assessment/Plan Assess & Plan/Chief Complaint 1. Acute on Chronic Anemia--Hgb down to 7 so will give 1u pRBCs today 2. 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 DM II--continue SSI, metformin has been decreased to 500mg daily 4. Stomatitis--improving so will DC diflucan and nystatin on transfer 5. Edema/Hypoalbuminemia--started low dose lasix and potassium 6. HTN/Tachycardia--improved with increased Coreg to 6.25mg po BID 7. Confusion and Lethargy intermittently--have decreased buspar dose and changed prn pain meds from oxycodone to hydrocodone, may need to consider that the Oxycontin could be contributing Clinical Quality Measures Admission Status Admission Dx 1. Acute on Chronic Anemia--admit and transfuse and monitor H/H 2. Left leg amputation with nonhealing wound--IV antibiotics and consult wound care 3. Acute UTI--cover with IV antibiotics and await culture results 4. Diabetes mellitus--start accuchecks with SSI A DVT/VTE Risk/Contraindication: Risk Factor Score Per Nursin RFS Level Per Nursing on Admit: 4+=Very High HANNAH STYLES DO Mar 18, 2018 2:24 pm
[2018-03-18] MEDS: VANCOMYCIN 1500 MG/NS 500 ML IVPB IV SCH ×2 (14:50)
--- NOTE | 2018-03-29 18:07 | Discharge Summary ---
Diagnosis/Chief Complaint Date of Admission Mar 07, 2018 at 16:27 Date of Discharge Mar 18, 2018 at 16:05 Discharge Date: Mar 18, 2018 Discharge Diagnosis 1. Acute on Chronic Anemia--S/P blood transfusions and IV iron 2. 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 DM II with some mild hypoglycemia 4. Stomatitis--improved 5. Edema/Hypoalbuminemia--improved after IV albumin and IV lasix 6. HTN/Tachycardia--improved with increased Coreg to 6.25mg po BID 7. Confusion and Lethargy intermittently--have decreased buspar dose and changed prn pain meds from oxycodone to hydrocodone, may need to consider that the Oxycontin could be contributing 8. 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 She has had a nonhealing wound since that surgery and has been doing wound care as well as IV antibiotics with home health. She had lab drawn and was contacted by the home health nurse and told she needed to go to the emergency room due to a hemoglobin of 6.8. She has required blood transfusions due to low hemoglobin a few times since her surgery. She was found to be tachycardic with an elevated WBC count so a sepsis workup was initiated. She was found to have a UTI and it was decided to admit her for blood transfusion, IV antibiotics and further evaluation and monitoring. 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 She has had a nonhealing wound since that surgery and has been doing wound care as well as IV antibiotics with home health. She had lab drawn and was contacted by the home health nurse and told she needed to go to the emergency room due to a hemoglobin of 6.8. She has required blood transfusions due to low hemoglobin a few times since her surgery. She was found to be tachycardic with an elevated WBC count so a sepsis workup was initiated. She was found to have a UTI and it was decided to admit her for blood transfusion, IV antibiotics and further evaluation and monitoring. She was initially given IV rocephin but once the patient was admitted and her hip wound evaluated, she was switched to meropenem. She then informed us that she had been on Vancomycin at home due to MRSA in hr left hip wound so Vancomycin was added. Diflucan was added for both a stomatitis as well as yeast species in her urine. She did require blood transfusions during her hospital stay and was also given IV iron. Her hemoglobin on discharge had dropped to 7.0 and she was given 1unit of pRBCs just prior to discharge. She was also given IV albumin due to hypoalbuminemia with copious drainage from her hip wound and edema of her right leg. She was also started on lasix for the edema. Coreg was added for tachycardia. She had episodes of lethargy and confusion with associated diaphoresis and it was felt that this was possibly due to mild hypoglycemia versus her narcotics. Her diabetes medications were discontinued except for metformin at 500mg once daily and her prn breakthrough pain medicine was held. Due to the need for further IV antibiotics, wound care and monitoring of her hemoglobin and overall status, it was decided she would need a residential care facility until she was able to have surgery on March 30 by plastic surgery to revise and close her wound. The patient was accepted to [facility] in [place] and was transferred via ambulance. Procedures None. Discharge Physical Examination Allergies: Coded Allergies: cephalexin (Unverified Allergy, Mild, FACE GETS RED, FEELS REALLY HOT, ) General Appearance: Alert, Oriented X3, No Acute Distress Respiratory: Clear to Auscultation Abdominal: Normal Bowel Sounds, Soft, No Tenderness Skin: Other (left hip wound with large eschar and drainage) Psych/Mental Status: Mental Status NL Discharge Home Medications Reviewed and agree with Discharge Medication list on patient's Discharge Instruction sheet Instructions to Patient/Family Please see electronic discharge instructions given to patient. Clinical Quality Measures DVT/VTE Risk/Contraindication: Risk Factor Score Per Nursin RFS Level Per Nursing on Admit: 4+=Very High HANNAH STYLES DO Mar 29, 2018 18:07
== END 2018-03-18 16:05 | DRG 699 ==
LOC: EDUNIT# 21:17 → ER 21:18 → 4TH 23:00 → UNDOADMOB 23:00 → 4TH 23:45 → UNDOADMOB 23:45 → 4TH 03-07 12:30 → OBSVTOIN 03-07 16:27 → INTOOBSV 03-07 16:27 → 4TH 03-08 12:39 → UNDODISIN 03-18 16:05
PROVIDERS: ADMIT Internal Medicine; ATTEND Internal Medicine
DX: T83.511A Infection and inflammatory reaction due to indwelling urethral catheter, initial encounter (principal); N39.0 Urinary tract infection, site not specified; T81.4XXA Infection following a procedure, initial encounter; A49.02 Methicillin resistant Staphylococcus aureus infection, unspecified site; C49.22 Malignant neoplasm of connective and soft tissue of left lower limb, including hip; D64.9 Anemia, unspecified; K12.1 Other forms of stomatitis; E11.9 Type 2 diabetes mellitus without complications; I10 Essential (primary) hypertension; E78.00 Pure hypercholesterolemia, unspecified; M19.91 Primary osteoarthritis, unspecified site; M54.9 Dorsalgia, unspecified; E03.9 Hypothyroidism, unspecified; F41.9 Anxiety disorder, unspecified; Z68.39 Body mass index [BMI] 39.0-39.9, adult; E66.01 Morbid (severe) obesity due to excess calories; F32.9 Major depressive disorder, single episode, unspecified; R00.0 Tachycardia, unspecified; R60.1 Generalized edema; Z89.612 Acquired absence of left leg above knee; Z93.3 Colostomy status; E88.09 Other disorders of plasma-protein metabolism, not elsewhere classified; Z79.84 Long term (current) use of oral hypoglycemic drugs
CPT/HCPCS: 36415; 36430; 71045; 80048; 80053; 80202; 81000; 82962; 83605; 84484; 85007; 85025; 85027; 86850; 86900; 86901; 86920; 87040; 87088; 93005; 94664; 96365; G0378

== ENCOUNTER → 2018-03-06 | Outpatient (CLI) | payer OTHER ==
[~2018-03-06] MED LIST changes: +ACET325T49 PO; +BUPR100T15 PO; +BUSP30TA2 PO; -CATHETER FLUSH 10 ML SYR IV PRN; +COLL2POW MC; +COLL30OI TP; +ERTA1VIA IJ; +FERR325T18 PO; +GABA-488 PO; +GABA600T2 PO; -IOHEXOL 350 MG/ML 100 ML (OMNIPAQUE 350) VIAL IV ONE; +LACT1CAP62 PO; +LEVO200T6 PO; -METF1000 PO; +METF10002 PO; +NORT75CA PO; -NS 250 ML (IVPB) BAG IV ONE; +ONDA4TAB10 PO; +ONDA4TAB11 PO; +OXYC10TA7 PO; +OXYC10TA85 PO; +OXYC15TA79 PO; +PANT40TA3 PO; -RECEIVED CONTRAST (Hold Metformin) IV SCH; +RIVA20TA PO; +SENN-40 PO; +SENN1TAB93 PO; +SITA100T12 PO; +VANC1.5P16 IV
[2018-03-06 19:48] LABS: BASOPHILS % (AUTO) 0 % (0-10); EOSINOPHILS # (AUTO) 0.4 10^3/uL (0.0-0.3); EOSINOPHILS % (AUTO) 3 % (0-10); HEMATOCRIT 22 % (35-52); LYMPHOCYTES % (AUTO) 8 % (12-44); MEAN CORPUSCULAR HGB CONC 31 G/DL (32-36); MEAN CORPUSCULAR VOLUME 83 FL (80-99); MEAN PLATELET VOLUME 8.5 FL (7.4-10.4); MONOCYTES # (AUTO) 1.5 X 10^3 (0.0-1.0); MONOCYTES % (AUTO) 12 % (0-12); NEUTROPHILS # (AUTO) 9.6 X 10^3 (1.8-7.8); NEUTROPHILS % (AUTO) 76 % (42-75); PLATELET COUNT 528 10^3/uL (130-400); RED BLOOD COUNT 2.67 10^6/uL (4.35-5.85); WHITE BLOOD COUNT 12.6 10^3/uL (4.3-11.0)
[2018-03-06 19:54] LABS: HEMOGLOBIN 6.8 G/DL (11.5-16.0); MEAN CORPUSCULAR HEMOGLOBIN 25 PG (25-34)
[2018-03-06 20:00] LABS: ALANINE AMINOTRANSFERASE 67 U/L (0-55); ALBUMIN 2.2 GM/DL (3.2-4.5); ALKALINE PHOSPHATASE 173 U/L (40-136); BILIRUBIN,TOTAL 0.2 MG/DL (0.1-1.0); BUN/CREATININE RATIO 14; CALCIUM 8.5 MG/DL (8.5-10.1); CARBON DIOXIDE 19 MMOL/L (21-32); CHLORIDE 105 MMOL/L (98-107); CREATININE SERUM 0.74 MG/DL (0.60-1.30); GFR ESTIMATED > 60; GLUCOSE 97 MG/DL (70-105); POTASSIUM 4.4 MMOL/L (3.6-5.0); SODIUM 138 MMOL/L (135-145); TOTAL PROTEIN 5.4 GM/DL (6.4-8.2)
[2018-03-06 20:06] LABS: VANCOMYCIN,TROUGH 17.8 UG/ML (10.0-20.0)
== END ==
LOC: LABNPT 19:33
PROVIDERS: ATTEND Internal Medicine Infectious Disease
DX: A40.1 Sepsis due to streptococcus, group B (principal); S71.002D Unspecified open wound, left hip, subsequent encounter
CPT/HCPCS: 80053; 80202; 85025